=== PATIENT | female | born 1950 | race Caucasian/White ===

== ENCOUNTER → 2017-02-10 | Outpatient (CLI) | payer MEDICARE, BC ==
--- NOTE | 2017-02-11 08:20 | XR ---
EXAMINATION TYPE: XR ribs LT w pa chest xray DATE OF EXAM: 02/10/2017 11:44 AM COMPARISON: NONE HISTORY: Pain TECHNIQUE: PA chest x-ray and 4 views of the ribs are obtained. FINDINGS: Calcification along the right paratracheal region noted. Question of a vascular stent overl paulette the upper aortic region. Heart is prominent. No pneumothorax or interstitial edema. Deformity of the left 11th rib is appears chronic deformity also of the posterior lateral left eighth rib. IMPRESSION: 1. Deformity involving the posterior lateral left eighth rib appears to be subacute. No sizable pneum othorax. Correlate for minimally displaced rib fracture.
== END | disposition home or self-care (01) ==
LOC: RADXRYALE 11:26
PROVIDERS: ATTEND Physician Assistant Medical
DX: S49.91XA Unspecified injury of right shoulder and upper arm, initial encounter (principal); M95.4 Acquired deformity of chest and rib; R07.81 Pleurodynia

== ENCOUNTER 2017-09-29 08:45 | Day surgery (SDC) | payer MEDICARE ==
[2017-09-17 13:40] VITALS: BMI 35.5
[~2017-09-29 08:45] MED LIST: ALPRAZolam 0.25 MG TAB PO PRN; ALPRAZolam 0.5 MG TAB PO PRN; ASPIRIN 325 MG TAB PO STA; ATORVASTATIN 80 MG TAB PO STA; NITROGLYCERIN SL TABS 0.4 MG TAB SUBLINGUAL PRN; SODIUM CHLORIDE 0.9% 1,000 ML in EMPTY BAG 1 BAG IV ONE
[2017-09-29] MEDS ORDERED: SODIUM CHLORIDE 0.9% 1,000 ML IV SCH ×2 (09:00→13:30)
[2017-09-29 09:52] VITALS: TEMP 98.1
[2017-09-29 09:56] LABS: Prothrombin Time 9.8 sec (9.0-12.0)
[2017-09-29] MEDS ORDERED: MIDAZOLAM 2 MG/2 ML VIAL IV ONE (12:30)
[2017-09-29] MEDS ORDERED: fentaNYL (PF) 50 MCG/ML 2 ML AMP IV ONE (12:31)
[2017-09-29] MEDS ORDERED: LIDOCAINE 2% INJ 20 MG/ML SQ ONE ×2 (12:34)
[2017-09-29] MEDS ORDERED: HYDROcodone/APAP 5-325MG 1 EACH TAB PO PRN (13:26)
[2017-09-29] MEDS ORDERED: RX INFO: IV CONTRAST WAS GIVEN 1 EACH MISC MISCELLANE PRN (13:26)
[2017-09-29] MEDS ORDERED: IODIXANOL 320 MG/ML 100 ML INTRAARTER ONE (13:41)
--- NOTE | 2017-09-29 13:43 | CC ---
CARDIAC CATHETERIZATION REPORT Mrs. Sadler is a 67-year-old female who was has been found to have severe mitral regurgitation. Patient was advised cardiac catheterization to rule out any significant coronary artery disease. PROCEDURE: The right groin was prepped and draped in the usual manner and the skin was infiltrated with 2% Xylocaine. The right femoral artery was entered using Seldinger technique and a #6-Portuguese sheath was placed in. Selective coronary angiography was then performed in multiple projections. Left ventricular pressures were obtained. Left ventriculography was not performed because of significant ventricular irritability. HEMODYNAMICS: Left ventricular end-diastolic pressure is 20 to 22 mmHg prior to angiography. No gradient is noted across the aortic valve. SELECTIVE CORONARY ANGIOGRAPHY: Left main coronary artery is short. LAD is a good caliber blood vessel and gives rise to good size diagonal branch. LAD and its branches are normal. Circumflex coronary artery is a good caliber blood vessel and proximally has 70% stenosis. The right coronary artery has mild irregularity noted. FINAL IMPRESSION: This study reveals 70% stenosis in proximal to mid circumflex coronary artery. Left anterior descending artery is normal. Right coronary artery has minimal irregularity. Left ventricular end-diastolic pressure is mildly elevated. There is no evidence of any gradient across the aortic valve. RECOMMENDATIONS: Patient will need mitral valve replacement and vein graft to the obtuse marginal branch. This patient is anemic for which patient needs further workup prior to surgery. MMODL / IJN: [id number] /
[2017-09-29] MEDS ORDERED: FLECAINIDE 50 MG TAB PO STA (14:49)
[2017-09-29] MEDS ORDERED: METOPROLOL TARTRATE 12.5 MG TAB PO STA (14:50)
--- NOTE | 2017-09-29 18:13 | AN ---
ANGIOGRAPHY REPORT DATE OF SERVICE: September 29, 2017. PERFORMING PHYSICIAN: Tremayne Carreno MD, core shaper top. PROCEDURE PERFORMED: Selective left subclavian angiogram. INDICATION: This is a pleasant 67-year-old female patient who sees Dr. Crawley as an outpatient who was admitted to the hospital earlier today and underwent a heart catheterization by Dr. Rascon to rule out any severe underlying CAD before mitral valve surgery and she was experiencing left arm discomfort. In view of the history of left subclavian stenting, Dr. Rascon requested me to perform left subclavian angiogram on her. APPROACH: Right common femoral artery. COMPLICATION: None. LEVEL OF SEDATION: Moderate with sedation length of about 10 minutes. PROCEDURE DESCRIPTION: After diagnostic heart catheterization was performed by Dr. Rascon and I did engage the left subclavian using a Ludin Right catheter. I did selective left subclavian angiogram using manual injection. The procedure was completed without any complication. SELECTIVE PERIPHERAL ANGIOGRAM: The left subclavian is stented in the proximal portion with critical in-stent restenoses. CONCLUSION: Critical in-stent restenosis involving the left subclavian. POSTPROCEDURE MANAGEMENT: Follow up with the patient as an outpatient and discuss with her the option of revascularization. Clearly the patient has been experiencing left arm discomfort. MMODL / IJN: [id number] /
[2017-09-29 19:00] VITALS: BP 116/72; PULSE 82; RESP 16
== END 2017-09-29 19:00 | disposition home or self-care (01) ==
LOC: CATHCVL 08:45
PROVIDERS: ATTEND Internal Medicine Cardiovascular Disease
DX: I25.10 Atherosclerotic heart disease of native coronary artery without angina pectoris (principal); T82.856A Stenosis of peripheral vascular stent, initial encounter; D64.9 Anemia, unspecified; I34.0 Nonrheumatic mitral (valve) insufficiency; I48.1 Persistent atrial fibrillation; I10 Essential (primary) hypertension; I77.1 Stricture of artery; I70.0 Atherosclerosis of aorta; I73.9 Peripheral vascular disease, unspecified; E78.5 Hyperlipidemia, unspecified; I49.3 Ventricular premature depolarization; I47.1 Supraventricular tachycardia; J44.9 Chronic obstructive pulmonary disease, unspecified; I27.20 Pulmonary hypertension, unspecified; Z82.49 Family history of ischemic heart disease and other diseases of the circulatory system; Z79.01 Long term (current) use of anticoagulants; Z79.02 Long term (current) use of antithrombotics/antiplatelets; Z79.82 Long term (current) use of aspirin; Z79.899 Other long term (current) drug therapy; Z88.5 Allergy status to narcotic agent; Z87.891 Personal history of nicotine dependence
CPT/HCPCS: 36215; 93458; 75710; 85610; C1760; C1894; C1769; J2001; J2250; Q9967; J3010

== ENCOUNTER 2017-10-12 11:18 | Inpatient (IN) | payer MEDICARE ==
--- NOTE | 2017-10-12 11:51 | ED ---
General Adult HPI - General Chief complaint: Chest Pain Stated complaint: Chest Pain Time Seen by Provider: 10/12/17 11:21 Source: patient, EMS, RN notes reviewed, old records reviewed Mode of arrival: EMS Limitations: no limitations - History of Present Illness Initial comments: 67-year-old female presents for evaluation of fatigue and worsening dyspnea. Patient has past medical history of mitral valve regurgitation and coronary artery disease. She is currently working with cardiology for scheduling of open heart surgery. She has not yet met with cardiothoracic surgery. She also has history of left subclavian stenosis status post stenting. She is currently on Coumadin. Patient states that over the past 5 days she has had worsening fatigue, exertional dyspnea and chest pain. Pain is primarily positional. She does have pain in her left arm with prolonged positioning. Patient currently has no chest pain or arm pain at the time my evaluation. Her breathing is comfortable while at rest. Additional past medical history including atrial fibrillation, mitral valve regurgitation, coronary artery disease. - Related Data Home Medications Medication Instructions Recorded Confirmed Escitalopram [Lexapro] 10 mg PO HS 02/01/14 10/12/17 Aspirin EC [Ecotrin Low Dose] 162 mg PO HS 02/19/16 10/12/17 Enalapril/Hydrochlorothiazide 1 tab PO HS 08/30/17 10/12/17 [Enalapril-Hctz 10-25 mg Tablet] Metoprolol Tartrate [Lopressor] 12.5 mg PO BID 09/17/17 10/12/17 Warfarin [Coumadin] 5 mg PO DAILY@1800 09/17/17 10/12/17 Amiodarone [Cordarone] 200 mg PO DAILY 10/12/17 10/12/17 Naproxen 500 mg PO DAILY PRN 10/12/17 10/12/17 Previous Rx's Medication Instructions Recorded Atorvastatin [Lipitor] 20 mg PO DAILY #30 tab 09/04/17 Furosemide [Lasix] 20 mg PO DAILY #30 tab 09/04/17 Allergies Allergy/AdvReac Type Severity Reaction Status Date / Time codeine AdvReac Hallucinati Verified 10/12/17 12:08 ons Review of Systems ROS Statement: Those systems with pertinent positive or pertinent negative responses have been documented in the HPI. ROS Other: All systems not noted in ROS Statement are negative. Past Medical History Past Medical History: Atrial Fibrillation, Hyperlipidemia, Hypertension Additional Past Medical History / Comment(s): HX: Was told "leaky valve", pt states has been experiencing "gallbladder pain" has been followed by dr small for sx and elevated liver enzymes, shortness of breath with activity History of Any Multi-Drug Resistant Organisms: None Reported Past Surgical History: Heart Catheterization With Stent, Tonsillectomy Additional Past Surgical History / Comment(s): 05/03/15 L subclavian stent. Other SX:D&C,NILDA Past Anesthesia/Blood Transfusion Reactions: No Reported Reaction Additional Past Anesthesia/Blood Transfusion Reaction / Comment(s): patient states she has never received blood Date of Last Stent Placement:: 05/03/15 Past Psychological History: No Psychological Hx Reported Smoking Status: Former smoker Past Alcohol Use History: None Reported Past Drug Use History: None Reported - Past Family History Mother Family Medical History: Hypertension Additional Family Medical History / Comment(s): LEAKY HEART VALVES,HEART PROBLEMS, WITH BOWEL OBS Father Family Medical History: Myocardial Infarction ([place]) Additional Family Medical History / Comment(s): HEART PROBLEMS, AT AGE 68 WITH [place] General Exam Limitations: no limitations General appearance: alert, in no apparent distress Head exam: Present: atraumatic, normocephalic Eye exam: Present: normal appearance, PERRL ENT exam: Present: normal exam Neck exam: Present: normal inspection. Absent: tenderness, meningismus Respiratory exam: Present: normal lung sounds bilaterally. Absent: respiratory distress Cardiovascular Exam: Present: regular rate, normal rhythm, systolic murmur GI/Abdominal exam: Present: soft. Absent: distended, tenderness Extremities exam: Present: normal inspection, normal capillary refill, pedal edema, other (No palpable left radial pulse, and is warm and pink, pulse oximetry of 100% with poor waveform. ) Back exam: Present: normal inspection, full ROM. Absent: tenderness Neurological exam: Present: alert, CN II-XII intact. Absent: oriented X3, motor sensory deficit Psychiatric exam: Present: normal affect, normal mood Skin exam: Present: warm, dry, intact, diaphoretic. Absent: cyanosis Course Vital Signs 10/12/17 10/12/17 10/12/17 11:19 12:26 13:45 Temperature 98.8 F 97.8 F 97.6 F Pulse Rate 86 74 78 Respiratory 18 18 18 Rate Blood Pressure 132/60 111/55 111/53 O2 Sat by Pulse 100 100 100 Oximetry EKG Findings - EKG Comments: EKG Findings:: EKG shows sinus rhythm with PVC ventricular rate 77, VA 1:30, castration 78, QTC 441, T-wave inversion in lead V3 signs of ST segment elevation. Medical Decision Making - Medical Decision Making 67-year-old female presenting with generalized weakness and fatigue. Patient is on Coumadin. INR 5.5, hemoglobin 5.9 from recent baseline of 9.1. Patient' s stool is dark and tarry and heme positive. Patient is given vitamin K, 2 units of packed RBCs, case is discussed with Dr. Rutledge, who will accept the patient to the ICU, case also discussed with Dr. Plummer, she recommends 2 units FFP at this time. Case discussed with Dr. Middleton and he will accept admission. Diagnosis: Melena, suspect upper GI bleed, supratherapeutic INR, acute blood loss anemia - Lab Data Result diagrams: 10/12/17 11:27 10/12/17 11:27 Lab Results 10/12/17 10/12/17 10/12/17 Range/Units 11:27 11:27 11:27 WBC 9.1 (3.8-10.6) k/uL RBC 2.63 L (3.80-5.40) m/uL Hgb 5.9 L* D (11.4-16.0) gm/dL Hct 20.6 L (34.0-46.0) % MCV 78.1 L D (80.0-100.0) fL MCH 22.5 L (25.0-35.0) pg MCHC 28.8 L (31.0-37.0) g/dL RDW 19.1 H (11.5-15.5) % Plt Count 372 (150-450) k/uL Neutrophils % 76 % Lymphocytes % 13 % Monocytes % 5 % Eosinophils % 3 % Basophils % 1 % Neutrophils # 6.9 (1.3-7.7) k/uL Lymphocytes # 1.2 (1.0-4.8) k/uL Monocytes # 0.4 (0-1.0) k/uL Eosinophils # 0.3 (0-0.7) k/uL Basophils # 0.0 (0-0.2) k/uL Hypochromasia Marked Poikilocytosis Slight Anisocytosis Slight Microcytosis Slight PT (9.0-12.0) sec INR (<1.2) APTT (22.0-30.0) sec Sodium 140 (137-145) mmol/L Potassium 4.5 (3.5-5.1) mmol/L Chloride 108 H (98-107) mmol/L Carbon Dioxide 26 (22-30) mmol/L Anion Gap 6 mmol/L BUN 24 H (7-17) mg/dL Creatinine 1.01 (0.52-1.04) mg/dL Est GFR (MDRD) Af Amer >60 (>60 ml/min/1.73 sqM) Est GFR (MDRD) Non-Af 55 (>60 ml/min/1.73 sqM) Glucose 95 (74-99) mg/dL Calcium 8.6 (8.4-10.2) mg/dL Magnesium 1.9 (1.6-2.3) mg/dL Total Bilirubin 0.2 (0.2-1.3) mg/dL AST 62 H (14-36) U/L ALT 54 H (9-52) U/L Alkaline Phosphatase 71 (38-126) U/L Total Creatine Kinase 293 H (30-135) U/L CK-MB (CK-2) 0.4 (0.0-2.4) ng/mL CK-MB (CK-2) Rel Index 0.1 Troponin I <0.012 (0.000-0.034) ng/mL NT-Pro-B Natriuret Pep pg/mL Total Protein 6.6 (6.3-8.2) g/dL Albumin 3.2 L (3.5-5.0) g/dL Stool Occult Blood (Negative) 10/12/17 10/12/17 10/12/17 Range/Units 11:27 11:27 13:40 WBC (3.8-10.6) k/uL RBC (3.80-5.40) m/uL Hgb (11.4-16.0) gm/dL Hct (34.0-46.0) % MCV (80.0-100.0) fL MCH (25.0-35.0) pg MCHC (31.0-37.0) g/dL RDW (11.5-15.5) % Plt Count (150-450) k/uL Neutrophils % % Lymphocytes % % Monocytes % % Eosinophils % % Basophils % % Neutrophils # (1.3-7.7) k/uL Lymphocytes # (1.0-4.8) k/uL Monocytes # (0-1.0) k/uL Eosinophils # (0-0.7) k/uL Basophils # (0-0.2) k/uL Hypochromasia Poikilocytosis Anisocytosis Microcytosis PT 49.8 H (9.0-12.0) sec INR 5.5 H* (<1.2) APTT 30.2 H (22.0-30.0) sec Sodium (137-145) mmol/L Potassium (3.5-5.1) mmol/L Chloride (98-107) mmol/L Carbon Dioxide (22-30) mmol/L Anion Gap mmol/L BUN (7-17) mg/dL Creatinine (0.52-1.04) mg/dL Est GFR (MDRD) Af Amer (>60 ml/min/1.73 sqM) Est GFR (MDRD) Non-Af (>60 ml/min/1.73 sqM) Glucose (74-99) mg/dL Calcium (8.4-10.2) mg/dL Magnesium (1.6-2.3) mg/dL Total Bilirubin (0.2-1.3) mg/dL AST (14-36) U/L ALT (9-52) U/L Alkaline Phosphatase (38-126) U/L Total Creatine Kinase (30-135) U/L CK-MB (CK-2) (0.0-2.4) ng/mL CK-MB (CK-2) Rel Index Troponin I (0.000-0.034) ng/mL NT-Pro-B Natriuret Pep 1160 pg/mL Total Protein (6.3-8.2) g/dL Albumin (3.5-5.0) g/dL Stool Occult Blood Positive H (Negative) Critical Care Time Critical Care Time: Yes Total Critical Care Time: 35 Disposition Clinical Impression: GI bleed Disposition: ADMITTED IP TO THIS [facility] Condition: Serious Referrals: Elton Madden DO [Primary Care Provider] - 1-2 days Decision to Admit Reason: Admit from EC Decision Date: 10/12/17 Decision Time: 14:09
[2017-10-12 12:12] LABS: ALT 54 U/L (9-52); AST 62 U/L (14-36); Albumin 3.2 g/dL (3.5-5.0); Alkaline Phosphatase 71 U/L (38-126); Anion Gap 6 mmol/L; Blood Urea Nitrogen 24 mg/dL (7-17); Calcium 8.6 mg/dL (8.4-10.2); Carbon Dioxide 26 mmol/L (22-30); Chloride 108 mmol/L (98-107); Glucose 95 mg/dL (74-99); Magnesium 1.9 mg/dL (1.6-2.3); Potassium 4.5 mmol/L (3.5-5.1); Sodium 140 mmol/L (137-145); Total Bilirubin 0.2 mg/dL (0.2-1.3); Total Protein 6.6 g/dL (6.3-8.2)
[2017-10-12 12:16] LABS: Anisocytosis Slight; Basophils % (A) 1 %; Eosinophils # (A) 0.3 k/uL (0-0.7); Eosinophils % (A) 3 %; HCT 20.6 % (34.0-46.0); Hypochromasia Marked; Lymphocytes # (A) 1.2 k/uL (1.0-4.8); Lymphocytes % (A) 13 %; MCH 22.5 pg (25.0-35.0); MCHC 28.8 g/dL (31.0-37.0); Mean Platelet Volume 7.8; Microcytosis Slight; Monocytes # (A) 0.4 k/uL (0-1.0); Monocytes % (A) 5 %; Neutrophils # (A) 6.9 k/uL (1.3-7.7); Neutrophils % (A) 76 %; Platelet Count 372 k/uL (150-450); Poikilocytosis Slight; RBC 2.63 m/uL (3.80-5.40); RDW 19.1 % (11.5-15.5); WBC 9.1 k/uL (3.8-10.6)
[2017-10-12 12:25] LABS: Creatine Kinase 293 U/L (30-135); HGB 5.9 gm/dL (11.4-16.0); MCV 78.1 fL (80.0-100.0)
--- NOTE | 2017-10-12 12:27 | XR ---
EXAMINATION TYPE: XR chest 2V DATE OF EXAM: 10/12/2017 COMPARISON: 08/30/2017 TECHNIQUE: PA and lateral views submitted. HISTORY: Shortness of breath FINDINGS: The lungs are clear and there is no pneumothorax, pleural effusion, or focal pneumonia. There is a n odule in the left upper lobe laterally. Cardiomegaly and atherosclerotic change aorta. No overt failu re. Degenerative change of the spine. Vascular stent noted. Arthropathy of the hips. IMPRESSION: 1. No acute process. Left upper lobe pulmonary nodule. Recommend a CT of the chest to assess for naun gnancy
[2017-10-12 12:38] LABS: Creatine Kinase MB 0.4 ng/mL (0.0-2.4); Troponin I <0.012 ng/mL (0.000-0.034)
[2017-10-12 12:46] LABS: Partial Thromboplastin Time 30.2 sec (22.0-30.0); Prothrombin Time 49.8 sec (9.0-12.0)
[2017-10-12 12:54] LABS: INR 5.5 (<1.2)
[2017-10-12] MEDS ORDERED: PHYTONADIONE ORAL 5 MG/5 ML ORAL.SYRG PO STA (13:12)
[2017-10-12] MEDS ORDERED: PANTOPRAZOLE 40 MG/10 ML VIAL IVP ONE (13:14)
[2017-10-12] MEDS ORDERED: NALOXONE 0.4 MG/ML 1 ML VIAL IV PRN (13:59)
[2017-10-12 16:42] LABS: Glucose,Whole Blood 91 mg/dL (75-99)
--- NOTE | 2017-10-12 16:47 | P.CNPUL ---
History of Present Illness Consult date: 10/12/17 Requesting physician: Francisco Middleton Reason for consult: other (Critical care management) Chief complaint: Shortness of breath, weakness, chest discomfort, black tarry stool History of present illness: This is a very pleasant 67-year-old female patient who follows with Dr. Madden as her primary care physician. She has a history of atrial fibrillation, hyperlipidemia, hypertension, cholelithiasis, left subclavian stenosis with previous stent placement and subsequent reocclusion, cardiac catheterization performed 09/29/2017 revealed coronary artery disease with 70% stenosis in the proximal to mid circumflex and severe mitral regurgitation pending cardiothoracic surgical consultation and surgery. She has been on warfarin and Ecotrin 162 mg daily. She does have a history of chronic tobacco dependence however quit 2 years ago. She's never been told she has COPD/ emphysema or asthma. She is not on any inhalers in the outpatient setting. She presented here to the emergency room this morning with complaints of fatigue and worsening shortness of breath with minimal exertion. She's also had ongoing issues with left-sided chest discomfort radiating down her left arm. Initial troponin is negative. ProBNP 1160. She was found to be supratherapeutic on INR of 5.5 and a hemoglobin of 5.9 with stool occult blood positive. She had noticed some black tarry stool at home as well. Last colonoscopy 4 years ago. She is seen in the emergency room in consultation. She is awake and alert in no acute distress. She has remained hemodynamically stable. She is maintaining good O2 saturations up to 100% on 2 L/m per nasal cannula. Her chest x-ray reveals no acute pulmonary process. There is a noted left upper lobe pulmonary nodule. She's been afebrile. No tachypnea. No tachycardia. Currently in sinus rhythm. Rate well controlled. There is nonspecific ST and T wave abnormalities. Review of Systems 14 point review of system was conducted. All negative other than as mentioned HPI. Past Medical History Past Medical History: Atrial Fibrillation, Hyperlipidemia, Hypertension Additional Past Medical History / Comment(s): HX: Was told "leaky valve", pt states has been experiencing "gallbladder pain" has been followed by dr small for sx and elevated liver enzymes, shortness of breath with activity History of Any Multi-Drug Resistant Organisms: None Reported Past Surgical History: Heart Catheterization With Stent, Tonsillectomy Additional Past Surgical History / Comment(s): 05/03/15 L subclavian stent. Other SX:D&C,NILDA Past Anesthesia/Blood Transfusion Reactions: No Reported Reaction Additional Past Anesthesia/Blood Transfusion Reaction / Comment(s): patient states she has never received blood Date of Last Stent Placement:: 05/03/15 Past Psychological History: No Psychological Hx Reported Smoking Status: Former smoker Past Alcohol Use History: None Reported Past Drug Use History: None Reported - Past Family History Mother Family Medical History: Hypertension Additional Family Medical History / Comment(s): LEAKY HEART VALVES,HEART PROBLEMS, WITH BOWEL OBS Father Family Medical History: Myocardial Infarction ([place]) Additional Family Medical History / Comment(s): HEART PROBLEMS, AT AGE 68 WITH [place] Medications and Allergies Home Medications Medication Instructions Recorded Confirmed Type Escitalopram [Lexapro] 10 mg PO HS 02/01/14 10/12/17 History Aspirin EC [Ecotrin Low Dose] 162 mg PO HS 02/19/16 10/12/17 History Enalapril/Hydrochlorothiazide 1 tab PO HS 08/30/17 10/12/17 History [Enalapril-Hctz 10-25 mg Tablet] Atorvastatin [Lipitor] 20 mg PO DAILY #30 tab 09/04/17 10/12/17 Rx Furosemide [Lasix] 20 mg PO DAILY #30 tab 09/04/17 10/12/17 Rx Metoprolol Tartrate [Lopressor] 12.5 mg PO BID 09/17/17 10/12/17 History Warfarin [Coumadin] 5 mg PO DAILY@1800 09/17/17 10/12/17 History Amiodarone [Cordarone] 200 mg PO DAILY 10/12/17 10/12/17 History Naproxen 500 mg PO DAILY PRN 10/12/17 10/12/17 History Allergies Allergy/AdvReac Type Severity Reaction Status Date / Time codeine AdvReac Hallucinati Verified 10/12/17 12:08 ons Physical Exam Vitals: Vital Signs Temp Pulse Resp BP Pulse Ox 10/12/17 14:57 97.9 F 74 20 108/59 98 10/12/17 13:45 97.6 F 78 18 111/53 100 10/12/17 12:26 97.8 F 74 18 111/55 100 10/12/17 11:19 98.8 F 86 18 132/60 100 Intake and Output 10/12/17 10/12/17 10/12/17 06:59 14:59 22:59 Other: Weight 92.533 kg Patient Weight 10/13/17 06:59 Weight 92.533 kg GENERAL EXAM: Pale. Alert, oriented 3, comfortable in no apparent distress. HEAD: Normocephalic. EYES: Normal reaction of pupils, equal size. NOSE: Clear with pink turbinates. THROAT: No erythema or exudates. NECK: No masses, no JVD. CHEST: No chest wall deformity. LUNGS: Equal air entry with no crackles, wheeze, rhonchi or dullness. CVS: S1 and S2 normal with an audible murmur, regular rhythm. ABDOMEN: No hepatosplenomegaly, normal bowel sounds, no guarding or rigidity. SPINE: No scoliosis or deformity SKIN: No rashes CENTRAL NERVOUS SYSTEM: No focal deficits, tone is normal in all 4 extremities. EXTREMITIES: There is no peripheral edema. No clubbing, no cyanosis. Peripheral pulses are intact. Results - Laboratory Findings CBC and BMP: 10/12/17 11:27 10/12/17 11:27 PT/INR, D-dimer PT 49.8 sec (9.0-12.0) H 10/12/17 11:27 INR 5.5 (<1.2) H* 10/12/17 11:27 Abnormal lab findings: Abnormal Labs 10/12/17 10/12/17 10/12/17 11:27 11:27 11:27 RBC 2.63 L Hgb 5.9 L* D Hct 20.6 L MCV 78.1 L D MCH 22.5 L MCHC 28.8 L RDW 19.1 H PT INR APTT Chloride 108 H BUN 24 H AST 62 H ALT 54 H Total Creatine Kinase 293 H Albumin 3.2 L Stool Occult Blood Crossmatch 10/12/17 10/12/17 10/12/17 11:27 11:27 13:40 RBC Hgb Hct MCV MCH MCHC RDW PT 49.8 H INR 5.5 H* APTT 30.2 H Chloride BUN AST ALT Total Creatine Kinase Albumin Stool Occult Blood Positive H Crossmatch See Detail - Diagnostic Findings Chest x-ray: image reviewed Assessment and Plan Assessment: Impression: #1 Acute gastrointestinal bleeding, suspect lower of unclear etiology. Last colonoscopy 4 years ago. Suspect secondary to supra therapeutic INR of 5.5. Current hemoglobin 5.9. Pending 2 units packed red blood cell transfusions and fresh frozen plasma. #2 Severe mitral regurgitation. Cardiothoracic consultation pending. #3 Coronary artery disease with a 70% stenosis in the proximal to mid circumflex coronary artery. Cardiothoracic consultation pending. #4 Left subclavian stent in the proximal portion with a critical in-stent restenosis. Plans were for follow-up in the outpatient setting based on the amount of dye utilized during that admission. #5 Cholecystitis, possibly chronic in nature. #6 Hypertension. #7 Hyperlipidemia. #8 Chronic tobacco dependence of greater than 40 years however quit 2 years ago. #8 History of elevated liver enzymes, currently AST 62, ALT 54. Plan: The patient was seen and evaluated by Dr. Rutledge. Her chest x-ray was reviewed. There is some question of pulmonary nodule in the left upper lobe difficult to appreciate on x-ray and not commented on x-ray of August 2017. May require a computed tomography scan of the chest at some point. Currently she'll receive her 2 units of packed red blood cells and fresh frozen plasma. Hold warfarin. Continue IV Protonix. Continue normal saline at 50 MLS per hour. She remains hemodynamically stable. Not requiring pressors at this point. Cardiothoracic consultation. Gastroenterology consultation. We'll observe her 24 hours here in the intensive care unit. Continue to monitor her hemoglobins. We will continue to follow and make further recommendations based on her clinical status. I, the cosigning physician, have performed a history and physical examination on the patient. Lung sounds are clear. Maintaining good O2 saturations in the 90s on 2 L/m per nasal cannula. I have discussed the assessment and plan of care with my nurse practitioner, Tiffayn Iniguez. I attest to the above consultation as dictated by her. Time with Patient: Greater than 30
--- NOTE | 2017-10-12 16:51 | P.HPIM ---
History of Present Illness 67-year-old female presents for evaluation of fatigue and worsening dyspnea. Patient has past medical history of mitral valve regurgitation and coronary artery disease. She is currently working with cardiology for scheduling of open heart surgery. She has not yet met with cardiothoracic surgery. She also has history of left subclavian stenosis status post stenting. Patient still has significant stenosis after stenting of stenting of subclavian artery on the left side and. She is currently on Coumadin for atrial fibrillation supratherapeutic Patient states that over the past 5 days she has had worsening fatigue, exertional dyspnea and chest pain, unable to perform her regular activities with significant lightheadedness can't even go to the bathroom because of lightheadedness and generalized fatigue and found to be severely anemic with hemoglobin of 5.6. Patient was complaining upon of dark stools and patient was recently started back on Coumadin and her INR is supratherapeutic with the INR of around 5 patient had 1 dark stool every day for last 3-4 days denied any abdominal pain Her breathing is comfortable while at rest. Additional past medical history including atrial fibrillation, mitral valve regurgitation, coronary artery disease. Review of Systems REVIEW OF SYSTEMS: CONSTITUTIONAL: No fever, no malaise, fatigue as mentioned above lightheadedness as mentioned above HEENT: No recent visual problems or hearing problems. Denied any sore throat. CARDIOVASCULAR: No orthopnea, PND, no palpitations, no syncope. PULMONARY: no cough, no hemoptysis. GASTROINTESTINAL: No diarrhea, no nausea, no vomiting, no abdominal pain. Normoactive bowel sounds. NEUROLOGICAL: No headaches, no weakness, no numbness. HEMATOLOGICAL: Denies any bleeding or petechiae. GENITOURINARY: Denies any burning micturition, frequency, or urgency. MUSCULOSKELETAL/RHEUMATOLOGICAL: Denies any joint pain, swelling, or any muscle pain. ENDOCRINE: Denies any polyuria or polydipsia. The rest of the 14-point review of systems is negative. Past Medical History Past Medical History: Atrial Fibrillation, Hyperlipidemia, Hypertension Additional Past Medical History / Comment(s): HX: Was told "leaky valve", pt states has been experiencing "gallbladder pain" has been followed by dr small for sx and elevated liver enzymes, shortness of breath with activity History of Any Multi-Drug Resistant Organisms: None Reported Past Surgical History: Heart Catheterization With Stent, Tonsillectomy Additional Past Surgical History / Comment(s): 05/03/15 L subclavian stent. Other SX:D&C,NILDA Past Anesthesia/Blood Transfusion Reactions: No Reported Reaction Additional Past Anesthesia/Blood Transfusion Reaction / Comment(s): patient states she has never received blood Date of Last Stent Placement:: 05/03/15 Past Psychological History: No Psychological Hx Reported Smoking Status: Former smoker Past Alcohol Use History: None Reported Past Drug Use History: None Reported - Past Family History Mother Family Medical History: Hypertension Additional Family Medical History / Comment(s): LEAKY HEART VALVES,HEART PROBLEMS, WITH BOWEL OBS Father Family Medical History: Myocardial Infarction ([place]) Additional Family Medical History / Comment(s): HEART PROBLEMS, AT AGE 68 WITH [place] Medications and Allergies Home Medications Medication Instructions Recorded Confirmed Type Escitalopram [Lexapro] 10 mg PO HS 02/01/14 10/12/17 History Aspirin EC [Ecotrin Low Dose] 162 mg PO HS 02/19/16 10/12/17 History Enalapril/Hydrochlorothiazide 1 tab PO HS 08/30/17 10/12/17 History [Enalapril-Hctz 10-25 mg Tablet] Atorvastatin [Lipitor] 20 mg PO DAILY #30 tab 09/04/17 10/12/17 Rx Furosemide [Lasix] 20 mg PO DAILY #30 tab 09/04/17 10/12/17 Rx Metoprolol Tartrate [Lopressor] 12.5 mg PO BID 09/17/17 10/12/17 History Warfarin [Coumadin] 5 mg PO DAILY@1800 09/17/17 10/12/17 History Amiodarone [Cordarone] 200 mg PO DAILY 10/12/17 10/12/17 History Naproxen 500 mg PO DAILY PRN 10/12/17 10/12/17 History Allergies Allergy/AdvReac Type Severity Reaction Status Date / Time codeine AdvReac Hallucinati Verified 10/12/17 12:08 ons Physical Exam Vitals: Vital Signs Temp Pulse Resp BP Pulse Ox 10/12/17 16:23 97.8 F 79 18 124/58 100 10/12/17 16:13 98.3 F 82 18 130/58 100 10/12/17 14:57 97.9 F 74 20 108/59 98 10/12/17 13:45 97.6 F 78 18 111/53 100 10/12/17 12:26 97.8 F 74 18 111/55 100 10/12/17 11:19 98.8 F 86 18 132/60 100 Intake and Output 10/12/17 10/12/17 10/12/17 06:59 14:59 22:59 Intake Total 0 Balance 0 Intake: Blood Product 0 Rc As-1 Unit 0 [id number] Other: Weight 92.533 kg Patient Weight 10/13/17 06:59 Weight 92.533 kg PHYSICAL EXAMINATION: GENERAL: The patient is alert and oriented x3, not in any acute distress. Well developed, well nourished. HEENT: Pupils are round and equally reacting to light. EOMI. No scleral icterus. She does have conjunctival pallor. Normocephalic, atraumatic. No pharyngeal erythema. No thyromegaly. CARDIOVASCULAR: S1 and S2 present. No murmurs, rubs, or gallops. Systolic murmur in the mitral area possibly in the aortic area as well PULMONARY: Chest is clear to auscultation, no wheezing or crackles. ABDOMEN: Soft, nontender, nondistended, normoactive bowel sounds. No palpable organomegaly. MUSCULOSKELETAL: No joint swelling or deformity. EXTREMITIES: No cyanosis, clubbing, or pedal edema. NEUROLOGICAL: Gross neurological examination did not reveal any focal deficits. SKIN: No rashes. Results CBC & Chem 7: 10/12/17 11:27 10/12/17 11:27 Labs: Abnormal Lab Results - Last 24 Hours (Table) 10/12/17 10/12/17 10/12/17 Range/Units 11:27 11:27 11:27 RBC 2.63 L (3.80-5.40) m/uL Hgb 5.9 L* D (11.4-16.0) gm/dL Hct 20.6 L (34.0-46.0) % MCV 78.1 L D (80.0-100.0) fL MCH 22.5 L (25.0-35.0) pg MCHC 28.8 L (31.0-37.0) g/dL RDW 19.1 H (11.5-15.5) % PT (9.0-12.0) sec INR (<1.2) APTT (22.0-30.0) sec Chloride 108 H (98-107) mmol/L BUN 24 H (7-17) mg/dL AST 62 H (14-36) U/L ALT 54 H (9-52) U/L Total Creatine Kinase 293 H (30-135) U/L Albumin 3.2 L (3.5-5.0) g/dL Stool Occult Blood (Negative) Crossmatch 10/12/17 10/12/17 10/12/17 Range/Units 11:27 11:27 13:40 RBC (3.80-5.40) m/uL Hgb (11.4-16.0) gm/dL Hct (34.0-46.0) % MCV (80.0-100.0) fL MCH (25.0-35.0) pg MCHC (31.0-37.0) g/dL RDW (11.5-15.5) % PT 49.8 H (9.0-12.0) sec INR 5.5 H* (<1.2) APTT 30.2 H (22.0-30.0) sec Chloride (98-107) mmol/L BUN (7-17) mg/dL AST (14-36) U/L ALT (9-52) U/L Total Creatine Kinase (30-135) U/L Albumin (3.5-5.0) g/dL Stool Occult Blood Positive H (Negative) Crossmatch See Detail Assessment and Plan Plan: -Severe symptomatic anemia: With possibility of acute upper GI bleed, transfused 2 units of breath and gastric surgery was consulted and patient is on Protonix. -Coumadin coagulopathy: Holding Coumadin patient was given 2.5 mg of vitamin K. -Coronary artery disease aspirin is being held because of GI bleed possibility -Atrial fibrillation presently rate controlled: Patient will be started back on her A. fib medications and rate control medications except for Coumadin. -Left subclavian stenosis. -Mitral regurgitation: Patient is not on any CHF exacerbation because of blood transfusion patient may end up getting overloaded will treat accordingly patient is presently resumed on her home dose of Lasix
[2017-10-12] MEDS: ESCITALOPRAM 10 MG TAB PO SCH (21:11)
[2017-10-12] MEDS: ATORVASTATIN 20 MG TAB PO SCH (21:12)
[2017-10-12] MEDS: SODIUM CHLORIDE 0.9% 1,000 ML IV SCH (21:14)
[2017-10-12] MEDS: METOPROLOL TARTRATE 12.5 MG TAB PO SCH (23:21)
[2017-10-13] MEDS ORDERED: PROPOFOL 10 MG/ML 20 ML VIAL IV ONE (01:10)
[2017-10-13] MEDS ORDERED: fentaNYL (PF) 50 MCG/ML 2 ML AMP ONE (01:10)
[2017-10-13] MEDS ORDERED: GLYCOPYRROLATE 0.2 MG/ML 2 ML VIAL ONE (01:10)
[2017-10-13 01:42] LABS: Anisocytosis Slight; HCT 25.2 % (34.0-46.0); HGB 7.5 gm/dL (11.4-16.0); Hypochromasia Marked; MCHC 29.8 g/dL (31.0-37.0); Mean Platelet Volume 6.6; Platelet Count 281 k/uL (150-450); Poikilocytosis Marked; RDW 16.7 % (11.5-15.5); WBC 7.9 k/uL (3.8-10.6)
[2017-10-13 01:43] LABS: MCV 84.1 fL (80.0-100.0)
[2017-10-13 04:43] LABS: Anisocytosis Slight; Basophils # (A) 0.1 k/uL (0-0.2); Basophils % (A) 1 %; Eosinophils # (A) 0.4 k/uL (0-0.7); Eosinophils % (A) 4 %; HCT 25.3 % (34.0-46.0); HGB 7.5 gm/dL (11.4-16.0); Hypochromasia Marked; Lymphocytes # (A) 1.2 k/uL (1.0-4.8); Lymphocytes % (A) 14 %; MCH 24.6 pg (25.0-35.0); MCHC 29.8 g/dL (31.0-37.0); MCV 82.6 fL (80.0-100.0); Mean Platelet Volume 7.4; Microcytosis Slight; Monocytes # (A) 0.5 k/uL (0-1.0); Monocytes % (A) 6 %; Neutrophils # (A) 5.8 k/uL (1.3-7.7); Neutrophils % (A) 72 %; Platelet Count 274 k/uL (150-450); Poikilocytosis Moderate; RBC 3.06 m/uL (3.80-5.40); WBC 8.2 k/uL (3.8-10.6)
[2017-10-13 05:00] LABS: Anion Gap 6 mmol/L; Blood Urea Nitrogen 25 mg/dL (7-17); Calcium 8.6 mg/dL (8.4-10.2); Carbon Dioxide 26 mmol/L (22-30); Chloride 109 mmol/L (98-107); Glucose 84 mg/dL (74-99); Phosphorus 3.1 mg/dL (2.5-4.5); Potassium 4.1 mmol/L (3.5-5.1); Sodium 141 mmol/L (137-145)
--- NOTE | 2017-10-13 07:50 | XR ---
EXAMINATION TYPE: XR chest 1V DATE OF EXAM: 10/13/2017 COMPARISON: Prior chest x-ray 10/12/2017 HISTORY: Cough and shortness of breath TECHNIQUE: Single frontal view of the chest is obtained. FINDINGS: The heart is enlarged. There are overlying cardiac leads. No evident airspace disease, pne umothorax, or pleural effusion. Pulmonary vascularity and laura are stable. Nodular density seen in th e left mid lung on prior exam may be obscured by overlying leads. Minimal patchy basilar density like ly reflects atelectasis. IMPRESSION: Cardiomegaly. Additional findings above.
[2017-10-13 08:10] LABS: Partial Thromboplastin Time 26.6 sec (22.0-30.0); Prothrombin Time 18.1 sec (9.0-12.0)
[2017-10-13] MEDS: ACETAMINOPHEN TAB 325 MG TAB PO PRN ×2 (08:11→21:54)
[2017-10-13] MEDS: METOPROLOL TARTRATE 12.5 MG TAB PO SCH ×2 (08:13→20:42)
[2017-10-13] MEDS: FUROSEMIDE 20 MG TAB PO SCH (08:13)
[2017-10-13] MEDS: PANTOPRAZOLE 40 MG/10 ML VIAL IV SCH (08:42)
[2017-10-13] MEDS ORDERED: ATORVASTATIN 20 MG TAB PO SCH (09:00)
[2017-10-13] MEDS ORDERED: AMIODARONE 200 MG TAB PO SCH ×2 (09:00→16:00)
--- NOTE | 2017-10-13 09:24 | P.CONS ---
History of Present Illness - Reason for Consult Consult date: 10/13/17 GI bleed melena Requesting physician: Francisco Middleton - History of Present Illness 67-year-old female with a history of atrial fibrillation with Coumadin monitoring, mitral valve disease, coronary artery disease, left subclavian stenosis with stent, obesity presents with worsening fatigue dyspnea with 3-4 week history of intermittent painless black colored bowel movements. Anticoagulation was held last month prior to heart catheterization that was performed September 29 which resolved her black colored bowel movements. After heart catheterization she restarted her Coumadin and within a few days started to pass small to moderate size bowel movements that were black-colored in nature. Denies hematemesis or hematochezia. No history of GI bleed. Last colonoscopy 5-6 years ago to her memory was normal. No history of EGD. Denies NSAIDs but takes 2 baby aspirin daily. Patient is awaiting cardiothoracic evaluation for possible mitral valve replacement as well as single-vessel bypass possible left subclavian stenosis repair. Patient states her subclavian is "blocked" despite previous stenting. Admission hemoglobin 5.9. MCV 78. Platelet 372. She received 2 units of blood. INR 5.5 received 2 units of FFP presently 2.0. Current hemoglobin 7.5. Upon review of previous CBCs hemoglobin was 9.1 on 09/07/2017 and in the 12 range February 2016. Last passage of black-colored stool was yesterday. Review of Systems Constitutional: Denies fever, chills, sweats, weight gain, or loss. HEENT: Negative for migraines, blurred vision or loss, earaches, drainage, tinnitus, oral mucosal lesions, dysphagia, or odynophagia. CARDIAC: Coronary artery disease. Valvular heart disease. Atrial fibrillation. Hypertension. Heparin lipidemia. Left subclavian stenosis. Negative for chest pain, arrhythmias, or palpitation. RESPIRATORY: Negative for shortness of breath, hemoptysis, cough, or sputum production. GI: See HPI for pertinent findings. : Negative for hematuria, urgency, frequency, polyuria, or dysuria. GYNc: Denies possibility of . Negative vaginal discharge. MUSCULOSKELETAL: Negative for muscle aches, swelling, arthritis, and arthralgias. NEUROLOGIC: Negative for stroke or TIA. ENDOCRINE: Negative for thyroid problems. SKIN: Negative for rash or itching. PSYCHIATRIC: Negative history for depression and anxiety Past Medical History Past Medical History: Atrial Fibrillation, Hyperlipidemia, Hypertension Additional Past Medical History / Comment(s): HX: Was told "leaky valve", pt states has been experiencing "gallbladder pain" has been followed by dr small for sx and elevated liver enzymes, shortness of breath with activity History of Any Multi-Drug Resistant Organisms: None Reported Past Surgical History: Heart Catheterization With Stent, Tonsillectomy Additional Past Surgical History / Comment(s): 05/03/15 L subclavian stent. Other SX:D&C,NILDA Past Anesthesia/Blood Transfusion Reactions: No Reported Reaction Additional Past Anesthesia/Blood Transfusion Reaction / Comm: patient states she has never received blood Date of Last Stent Placement:: 05/03/15 Past Psychological History: No Psychological Hx Reported Smoking Status: Former smoker Past Alcohol Use History: None Reported Past Drug Use History: None Reported - Past Family History Mother Family Medical History: Hypertension Additional Family Medical History / Comment(s): LEAKY HEART VALVES,HEART PROBLEMS, WITH BOWEL OBS Father Family Medical History: Myocardial Infarction ([place]) Additional Family Medical History / Comment(s): HEART PROBLEMS, AT AGE 68 WITH [place] Medications and Allergies Home Medications Medication Instructions Recorded Confirmed Type Escitalopram [Lexapro] 10 mg PO HS 02/01/14 10/12/17 History Aspirin EC [Ecotrin Low Dose] 162 mg PO HS 02/19/16 10/12/17 History Enalapril/Hydrochlorothiazide 1 tab PO HS 08/30/17 10/12/17 History [Enalapril-Hctz 10-25 mg Tablet] Atorvastatin [Lipitor] 20 mg PO DAILY #30 tab 09/04/17 10/12/17 Rx Furosemide [Lasix] 20 mg PO DAILY #30 tab 09/04/17 10/12/17 Rx Metoprolol Tartrate [Lopressor] 12.5 mg PO BID 09/17/17 10/12/17 History Warfarin [Coumadin] 5 mg PO DAILY@1800 09/17/17 10/12/17 History Amiodarone [Cordarone] 200 mg PO DAILY 10/12/17 10/12/17 History Naproxen 500 mg PO DAILY PRN 10/12/17 10/12/17 History Allergies Allergy/AdvReac Type Severity Reaction Status Date / Time codeine AdvReac Hallucinati Verified 10/12/17 12:08 ons Physical Exam Vitals: Vital Signs Temp Pulse Resp BP Pulse Ox 10/13/17 09:00 75 16 138/73 95 10/13/17 08:00 99 F 87 16 147/58 97 10/13/17 07:00 83 17 145/57 96 10/13/17 06:00 85 16 140/59 97 10/13/17 05:00 86 16 153/59 96 10/13/17 04:00 98.1 F 80 18 103/59 94 L 10/13/17 03:00 79 22 140/68 94 L 10/13/17 02:00 79 16 113/55 96 10/13/17 01:00 77 18 132/48 97 10/13/17 00:00 98.3 F 82 19 123/52 96 10/12/17 23:27 97.7 F 84 16 112/53 98 10/12/17 23:00 77 16 111/56 95 10/12/17 22:00 85 18 110/60 95 10/12/17 21:35 97.8 F 77 19 108/56 98 10/12/17 21:05 98.2 F 79 18 112/59 100 10/12/17 21:00 80 17 99/53 96 10/12/17 20:55 97.8 F 79 16 99/53 10/12/17 20:07 98.2 F 80 14 117/52 10/12/17 20:00 98.1 F 80 21 112/55 100 10/12/17 19:38 98 F 80 20 112/60 100 10/12/17 19:08 98.5 F 75 14 110/53 100 10/12/17 19:00 82 16 119/55 100 10/12/17 18:58 97.9 F 80 17 119/55 100 10/12/17 18:53 97.9 F 76 17 119/55 100 10/12/17 18:45 79 17 105/51 100 10/12/17 18:36 98.1 F 80 14 118/53 100 10/12/17 18:30 81 14 118/53 98 10/12/17 18:26 98.1 F 84 12 107/54 100 10/12/17 18:16 98.1 F 75 14 107/54 100 10/12/17 18:15 77 13 119/61 100 10/12/17 18:00 77 20 115/59 100 10/12/17 17:45 74 15 115/59 99 10/12/17 17:30 73 17 113/48 100 10/12/17 17:15 79 18 115/62 100 10/12/17 17:00 77 20 105/56 100 10/12/17 16:53 98.9 F 80 12 105/56 100 10/12/17 16:45 98.9 F 88 18 100 10/12/17 16:43 100 10/12/17 16:23 97.8 F 79 18 124/58 100 10/12/17 16:13 98.3 F 82 18 130/58 100 10/12/17 14:57 97.9 F 74 20 108/59 98 10/12/17 13:45 97.6 F 78 18 111/53 100 10/12/17 12:26 97.8 F 74 18 111/55 100 10/12/17 11:19 98.8 F 86 18 132/60 100 Intake and Output 10/12/17 10/13/17 10/13/17 22:59 06:59 14:59 Intake Total 1814 1070 100 Output Total 350 275 Balance 1464 795 100 Intake: IV 100 Sodium Chloride 0.9% 1, 100 000 ml @ 50 mls/hr IV . Q20H CARLEE Rx#:[id number] Intake, IV Titration 50 450 Amount Sodium Chloride 0.9% 1, 50 450 000 ml @ 50 mls/hr IV . Q20H CARLEE Rx#:[id number] Blood Product 1764 620 Ffp 24 Cp2d Unit 250 [id number] Ffp 24 Cpd Unit 322 [id number] Rc As-1 Unit 0 310 [id number] Rc As-1 Unit 310 [id number] Output: Urine 350 275 Other: Voiding Method Bedside Commode Bedside Commode # Voids 1 1 Weight 92.7 kg 97.9 kg General appearance: The patient is alert, oriented, in no acute distress. HET: Head is normocephalic and atraumatic. Pupils are equal and reactive. Oropharynx is clear without lesions. Neck: Supple without lymphadenopathy. Trachea midline. Heart: S1 S2. Regular rate and rhythm. Lungs: No crackles or wheezes are heard. Abdomen: Soft, nontender, nondistended with bowel sounds. No peritoneal signs. No palpable organomegaly or masses. Extremities: Normal skin color and turgor. No cyanosis, rash, ulceration, clubbing, or edema. Radial and pedal pulses are 2/4 bilaterally. Neurological: No focal deficits. Strength and sensation are grossly intact. Results CBC & Chem 7: 10/13/17 04:13 10/13/17 04:13 Labs: Abnormal Lab Results - Last 24 Hours (Table) 10/12/17 10/12/17 10/12/17 Range/Units 11:27 11:27 11:27 RBC 2.63 L (3.80-5.40) m/uL Hgb 5.9 L* D (11.4-16.0) gm/dL Hct 20.6 L (34.0-46.0) % MCV 78.1 L D (80.0-100.0) fL MCH 22.5 L (25.0-35.0) pg MCHC 28.8 L (31.0-37.0) g/dL RDW 19.1 H (11.5-15.5) % PT (9.0-12.0) sec INR (<1.2) APTT (22.0-30.0) sec Chloride 108 H (98-107) mmol/L BUN 24 H (7-17) mg/dL AST 62 H (14-36) U/L ALT 54 H (9-52) U/L Total Creatine Kinase 293 H (30-135) U/L Albumin 3.2 L (3.5-5.0) g/dL Stool Occult Blood (Negative) Crossmatch 10/12/17 10/12/17 10/12/17 Range/Units 11:27 11:27 13:40 RBC (3.80-5.40) m/uL Hgb (11.4-16.0) gm/dL Hct (34.0-46.0) % MCV (80.0-100.0) fL MCH (25.0-35.0) pg MCHC (31.0-37.0) g/dL RDW (11.5-15.5) % PT 49.8 H (9.0-12.0) sec INR 5.5 H* (<1.2) APTT 30.2 H (22.0-30.0) sec Chloride (98-107) mmol/L BUN (7-17) mg/dL AST (14-36) U/L ALT (9-52) U/L Total Creatine Kinase (30-135) U/L Albumin (3.5-5.0) g/dL Stool Occult Blood Positive H (Negative) Crossmatch See Detail 10/13/17 10/13/17 10/13/17 Range/Units 01:01 04:13 04:13 RBC 3.00 L 3.06 L (3.80-5.40) m/uL Hgb 7.5 L D 7.5 L (11.4-16.0) gm/dL Hct 25.2 L 25.3 L (34.0-46.0) % MCV (80.0-100.0) fL MCH 24.6 L (25.0-35.0) pg MCHC 29.8 L 29.8 L (31.0-37.0) g/dL RDW 16.7 H 18.0 H (11.5-15.5) % PT (9.0-12.0) sec INR (<1.2) APTT (22.0-30.0) sec Chloride 109 H (98-107) mmol/L BUN 25 H (7-17) mg/dL AST (14-36) U/L ALT (9-52) U/L Total Creatine Kinase (30-135) U/L Albumin (3.5-5.0) g/dL Stool Occult Blood (Negative) Crossmatch 10/13/17 Range/Units 07:33 RBC (3.80-5.40) m/uL Hgb (11.4-16.0) gm/dL Hct (34.0-46.0) % MCV (80.0-100.0) fL MCH (25.0-35.0) pg MCHC (31.0-37.0) g/dL RDW (11.5-15.5) % PT 18.1 H (9.0-12.0) sec INR 2.0 H (<1.2) APTT (22.0-30.0) sec Chloride (98-107) mmol/L BUN (7-17) mg/dL AST (14-36) U/L ALT (9-52) U/L Total Creatine Kinase (30-135) U/L Albumin (3.5-5.0) g/dL Stool Occult Blood (Negative) Crossmatch Assessment and Plan (1) Symptomatic anemia Current Visit: Yes Status: Acute Code(s): D64.9 - ANEMIA, UNSPECIFIED SNOMED Code(s): 914896059 (2) GI bleed Narrative/Plan: 3-4 week history of black colored bowel movements with worsening fatigue dyspnea. Possible peptic ulcer disease possible bleeding angiectasia. Small bowel pathology cannot be entirely excluded. Current Visit: Yes Status: Acute Code(s): K92.2 - GASTROINTESTINAL HEMORRHAGE, UNSPECIFIED SNOMED Code(s): 10877512 (3) Melena Current Visit: Yes Status: Acute Code(s): K92.1 - MELENA SNOMED Code(s): 8663845 (4) Acute blood loss anemia Current Visit: Yes Status: Acute Code(s): D62 - ACUTE POSTHEMORRHAGIC ANEMIA SNOMED Code(s): 137645204 (5) Mitral valve disease Current Visit: Yes Status: Acute Code(s): I05.9 - RHEUMATIC MITRAL VALVE DISEASE, UNSPECIFIED SNOMED Code(s): 85488054 (6) CAD (coronary artery disease) Current Visit: Yes Status: Acute Code(s): I25.10 - ATHSCL HEART DISEASE OF [place] CORONARY ARTERY W/O ANG PCTRS SNOMED Code(s): 70167904 (7) Warfarin-induced coagulopathy Current Visit: Yes Status: Acute Code(s): D68.9 - COAGULATION DEFECT, UNSPECIFIED; T45.515A - ADVERSE EFFECT OF ANTICOAGULANTS, INITIAL ENCOUNTER SNOMED Code(s): 64246922 (8) History of atrial fibrillation Current Visit: Yes Status: Chronic Code(s): Z86.79 - PERSONAL HISTORY OF OTHER DISEASES OF THE CIRCULATORY SYSTEM SNOMED Code(s): 389747843 Plan: 1. Transfuse 2 more units of FFP. 2. EGD evaluation today. 3. IV Protonix 40 mg every 12. 4. Hold antiplatelet/anticoagulation. The account maintenance representative has discussed the risks, benefits and alternative therapies for the above-mentioned procedure and for both sedation/analgesia as well as necessary blood product administration, if indicated, as they pertain to this patient. The patient has indicated understanding and acceptance of the risks and procedures discussed. Thank you for this kind referral and the opportunity to participate in the care of your patient. This consultation was discussed with Dr. Plummer. The impression and plan of care have been directed as dictated.
--- NOTE | 2017-10-13 11:00 | P.PN ---
Subjective Progress Note Date: 10/13/17 Principal diagnosis: Acute GI bleeding This is a very pleasant 67-year-old female patient who follows with Dr. Madden as her primary care physician. She has a history of atrial fibrillation, hyperlipidemia, hypertension, cholelithiasis, left subclavian stenosis with previous stent placement and subsequent reocclusion, cardiac catheterization performed 09/29/2017 revealed coronary artery disease with 70% stenosis in the proximal to mid circumflex and severe mitral regurgitation pending cardiothoracic surgical consultation and surgery. She has been on warfarin and Ecotrin 162 mg daily. She does have a history of chronic tobacco dependence however quit 2 years ago. She's never been told she has COPD/ emphysema or asthma. She is not on any inhalers in the outpatient setting. She presented here to the emergency room this morning with complaints of fatigue and worsening shortness of breath with minimal exertion. She's also had ongoing issues with left-sided chest discomfort radiating down her left arm. Initial troponin is negative. ProBNP 1160. She was found to be supratherapeutic on INR of 5.5 and a hemoglobin of 5.9 with stool occult blood positive. She had noticed some black tarry stool at home as well. Last colonoscopy 4 years ago. She is seen in the emergency room in consultation. She is awake and alert in no acute distress. She has remained hemodynamically stable. She is maintaining good O2 saturations up to 100% on 2 L/m per nasal cannula. Her chest x-ray reveals no acute pulmonary process. There is a noted left upper lobe pulmonary nodule. She's been afebrile. No tachypnea. No tachycardia. Currently in sinus rhythm. Rate well controlled. There is nonspecific ST and T wave abnormalities. Patient was reevaluated today on 10/13/2017, received so far a total of 2 units of packed RBCs and a total of 2 units of fresh frozen plasma. INR is down to 2.0, hemoglobin this morning is 7.5. Patient is scheduled to have EGD done by gastroenterology this afternoon. She was already seen by cardiothoracic surgery on consultation. Presently no active bleeding is going on, and she'll be receiving more fresh frozen plasma ordered by gastroenterology for EGD this afternoon. Patient is relatively asymptomatic. I reviewed her chest x-ray today, I do not see any evidence of a suspicious nodule, however patient could have a CT of the chest on outpatient basis post discharge. Objective - Vital Signs Vital signs: Vital Signs Temp 98.9 F 10/13/17 10:36 Pulse 75 10/13/17 10:36 Resp 20 10/13/17 10:36 BP 118/59 10/13/17 10:36 Pulse Ox 97 10/13/17 10:36 Intake & Output 10/12/17 10/13/17 10/13/17 18:59 06:59 18:59 Intake Total 870 2014 150 Output Total 0 625 325 Balance 870 1389 -175 Weight 92.7 kg 97.9 kg Intake: IV 150 Sodium Chloride 0.9% 1, 150 000 ml @ 50 mls/hr IV . Q20H CARLEE Rx#:[id number] Intake, IV Titration 500 Amount Sodium Chloride 0.9% 1, 500 000 ml @ 50 mls/hr IV . Q20H CARLEE Rx#:[id number] Blood Product 870 1514 0 Ffp 24 Cp2d Unit 250 [id number] Ffp 24 Cpd Unit 0 [id number] Ffp 24 Cpd Unit 0 322 [id number] Rc As-1 Unit 310 [id number] Rc As-1 Unit 310 [id number] Output: Urine 0 625 325 Other: Voiding Method Bedside Commode # Voids 1 - Exam GENERAL EXAM: Pale. Alert, oriented 3, comfortable in no apparent distress. HEAD: Normocephalic. EYES: Normal reaction of pupils, equal size. NOSE: Clear with pink turbinates. THROAT: No erythema or exudates. NECK: No masses, no JVD. CHEST: No chest wall deformity. LUNGS: Equal air entry with no crackles, wheeze, rhonchi or dullness. CVS: S1 and S2 normal with an audible murmur, regular rhythm. ABDOMEN: No hepatosplenomegaly, normal bowel sounds, no guarding or rigidity. SPINE: No scoliosis or deformity SKIN: No rashes CENTRAL NERVOUS SYSTEM: No focal deficits, tone is normal in all 4 extremities. EXTREMITIES: There is no peripheral edema. No clubbing, no cyanosis. Peripheral pulses are intact. - Labs CBC & Chem 7: 10/13/17 04:13 10/13/17 04:13 Labs: Abnormal Lab Results - Last 24 Hours (Table) 01/06/2110/12/17 10/12/17 Range/Units 11:27 11:27 11:27 RBC 2.63 L (3.80-5.40) m/uL Hgb 5.9 L* D (11.4-16.0) gm/dL Hct 20.6 L (34.0-46.0) % MCV 78.1 L D (80.0-100.0) fL MCH 22.5 L (25.0-35.0) pg MCHC 28.8 L (31.0-37.0) g/dL RDW 19.1 H (11.5-15.5) % PT (9.0-12.0) sec INR (<1.2) APTT (22.0-30.0) sec Chloride 108 H (98-107) mmol/L BUN 24 H (7-17) mg/dL AST 62 H (14-36) U/L ALT 54 H (9-52) U/L Total Creatine Kinase 293 H (30-135) U/L Albumin 3.2 L (3.5-5.0) g/dL Stool Occult Blood (Negative) Crossmatch 10/12/17 10/12/17 10/12/17 Range/Units 11:27 11:27 13:40 RBC (3.80-5.40) m/uL Hgb (11.4-16.0) gm/dL Hct (34.0-46.0) % MCV (80.0-100.0) fL MCH (25.0-35.0) pg MCHC (31.0-37.0) g/dL RDW (11.5-15.5) % PT 49.8 H (9.0-12.0) sec INR 5.5 H* (<1.2) APTT 30.2 H (22.0-30.0) sec Chloride (98-107) mmol/L BUN (7-17) mg/dL AST (14-36) U/L ALT (9-52) U/L Total Creatine Kinase (30-135) U/L Albumin (3.5-5.0) g/dL Stool Occult Blood Positive H (Negative) Crossmatch See Detail 10/13/17 10/13/17 10/13/17 Range/Units 01:01 04:13 04:13 RBC 3.00 L 3.06 L (3.80-5.40) m/uL Hgb 7.5 L D 7.5 L (11.4-16.0) gm/dL Hct 25.2 L 25.3 L (34.0-46.0) % MCV (80.0-100.0) fL MCH 24.6 L (25.0-35.0) pg MCHC 29.8 L 29.8 L (31.0-37.0) g/dL RDW 16.7 H 18.0 H (11.5-15.5) % PT (9.0-12.0) sec INR (<1.2) APTT (22.0-30.0) sec Chloride 109 H (98-107) mmol/L BUN 25 H (7-17) mg/dL AST (14-36) U/L ALT (9-52) U/L Total Creatine Kinase (30-135) U/L Albumin (3.5-5.0) g/dL Stool Occult Blood (Negative) Crossmatch 10/13/17 Range/Units 07:33 RBC (3.80-5.40) m/uL Hgb (11.4-16.0) gm/dL Hct (34.0-46.0) % MCV (80.0-100.0) fL MCH (25.0-35.0) pg MCHC (31.0-37.0) g/dL RDW (11.5-15.5) % PT 18.1 H (9.0-12.0) sec INR 2.0 H (<1.2) APTT (22.0-30.0) sec Chloride (98-107) mmol/L BUN (7-17) mg/dL AST (14-36) U/L ALT (9-52) U/L Total Creatine Kinase (30-135) U/L Albumin (3.5-5.0) g/dL Stool Occult Blood (Negative) Crossmatch Assessment and Plan Assessment: #1 Acute gastrointestinal bleeding, suspect lower of unclear etiology. Last colonoscopy 4 years ago. INR today is 2.0, hemoglobin is 7.5. Received so far a total of 3 units of packed RBCs and 2 units of fresh frozen plasma. #2 Severe mitral regurgitation. Cardiothoracic consultation pending. #3 Coronary artery disease with a 70% stenosis in the proximal to mid circumflex coronary artery. Cardiothoracic consultation pending. #4 Left subclavian stent in the proximal portion with a critical in-stent restenosis. Plans were for follow-up in the outpatient setting based on the amount of dye utilized during that admission. #5 Cholecystitis, possibly chronic in nature. #6 Hypertension. #7 Hyperlipidemia. #8 Chronic tobacco dependence of greater than 40 years however quit 2 years ago. #8 History of elevated liver enzymes, currently AST 62, ALT 54. #9 possible left lung nodule, not appreciated on the chest x-ray today, patient will probably need a CT of the chest on outpatient basis. He is to be a heavy smoker, she definitely has high risk for underlying pulmonary malignancy. Continue even consider a low-dose CT on outpatient basis. Recommendation: Agree with plans for EGD today, may or may not require colonoscopy, last colonoscopy was supposedly in the last 4 years. Patient will come back to the ICU, and depending on the findings of the EGD, and depending on her bleeding status, then we can decide whether to keep her in the ICU of transfer to a monitor bed on selective. Time with Patient: Less than 30
[2017-10-13] MEDS: SODIUM CHLORIDE 0.9% 1,000 ML IV SCH ×2 (11:03→18:10)
--- NOTE | 2017-10-13 11:25 | CDI ---
Last Revision, September 2017 Documentation Clarification Form Date: 10/13/2017 11:18:00 AM From: Karen Lora RN, CCDS Admit Date: 10/12/2017 1:59:00 PM Patient Name: Maritza Sadler Visit Number: [id number] ATTENTION: The Clinical Documentation Specialists (CDI) and [facility] Coding Staff appreciate your assistance in clarifying documentation. Please respond to the clarification below the line at the bottom and electronically sign. The CDI & [facility] Coding staff will review the response and follow-up if needed. Please note: Queries are made part of the Legal Health Record. If you have any questions, please contact the author of this message via ITS. Dr. Francisco Middleton Hx of Atrial fibrillation is documented in the H&P, Consults and Progress Notes and requires further specificity History/Risk Factors: Atrial Fib, Hyperlipidemia, HTN Clinical Indicators: 10/12 H&P: "Atrial fibrillation presently rate controlled: Patient will be started back on her A. fib medications and rate control medications except for Coumadin." EKG/telemetry: per ED note: "Sinus rhythm with PVC" Treatment: Amio 200 mg Po QD, Lopressor 12.5 mg PO BID In your professional opinion, can you please clarify the type of atrial fibrillation, if known? Chronic/Permanent Paroxysmal Persistent Other, please specify Unable to determine Please continue to document in your progress notes and discharge summary in order to capture severity of illness and risk of mortality. Include clinical findings that support your diagnosis. Will be a good question for cardiology MTDD
--- NOTE | 2017-10-13 12:17 | P.GSCN ---
<Parris Dawkins - Last Filed: 10/13/17 12:15> History of Present Illness Consult date: 10/13/17 Reason for Consult: Severe mitral regurgitation, surgical recommendations. Requesting physician: Lisbet Rutledge History of present illness: This 67-year-old female patient who follows with Dr. Elton Madden and who has a previous medical history of severe mitral regurgitation, left subclavian stenosis with stent placement in 2015 with recent discovery of critical re-in- stent stenosis, coronary artery disease, and previous tobacco dependence presented to the emergency room with complaints of fatigue and shortness of breath over the previous month, getting so bad in the last few days that she could barely even put her close on. She also had intermittent chest pain which would resolve with rest. In the ER she was noted to have a hemoglobin of 5.9 and with an INR of 5.5. She received 2 units of packed red blood cells, 2 units fresh frozen plasma, as well as vitamin K. Chest x-ray in the emergency room demonstrated no acute process however there is a left upper lobe pulmonary nodule. The patient was admitted to the intensive care unit for close monitoring and endoscopy to discover the source of her bleeding. Due to the patient's history of mitral regurgitation, Dr. Back from cardiothoracic surgery was consulted for treatment recommendations. Review of Systems 14 point review systems was completed and was negative except as noted - Constitutional Reports fatigue, Reports lethargy - Cardiovascular Reports as per HPI, Reports dyspnea on exertion - Gastrointestinal Reports melena Past Medical History Past Medical History: Atrial Fibrillation, Hyperlipidemia, Hypertension Additional Past Medical History / Comment(s): HX: Was told "leaky valve", pt states has been experiencing "gallbladder pain" has been followed by dr small for sx and elevated liver enzymes, shortness of breath with activity History of Any Multi-Drug Resistant Organisms: None Reported Past Surgical History: Heart Catheterization With Stent, Tonsillectomy Additional Past Surgical History / Comment(s): 05/03/15 L subclavian stent. Other SX:D&C,NILDA Past Anesthesia/Blood Transfusion Reactions: No Reported Reaction Additional Past Anesthesia/Blood Transfusion Reaction / Comm: patient states she has never received blood Date of Last Stent Placement:: 05/03/15 Past Psychological History: No Psychological Hx Reported Smoking Status: Former smoker Past Alcohol Use History: None Reported Past Drug Use History: None Reported - Past Family History Mother Family Medical History: Hypertension Additional Family Medical History / Comment(s): LEAKY HEART VALVES,HEART PROBLEMS, WITH BOWEL OBS Father Family Medical History: Myocardial Infarction (CA) Additional Family Medical History / Comment(s): HEART PROBLEMS, AT AGE 68 WITH CA Medications and Allergies Home Medications Medication Instructions Recorded Confirmed Type Escitalopram [Lexapro] 10 mg PO HS 02/01/14 10/12/17 History Aspirin EC [Ecotrin Low Dose] 162 mg PO HS 02/19/16 10/12/17 History Enalapril/Hydrochlorothiazide 1 tab PO HS 08/30/17 10/12/17 History [Enalapril-Hctz 10-25 mg Tablet] Atorvastatin [Lipitor] 20 mg PO DAILY #30 tab 09/04/17 10/12/17 Rx Furosemide [Lasix] 20 mg PO DAILY #30 tab 09/04/17 10/12/17 Rx Metoprolol Tartrate [Lopressor] 12.5 mg PO BID 09/17/17 10/12/17 History Warfarin [Coumadin] 5 mg PO DAILY@1800 09/17/17 10/12/17 History Amiodarone [Cordarone] 200 mg PO DAILY 10/12/17 10/12/17 History Naproxen 500 mg PO DAILY PRN 10/12/17 10/12/17 History Allergies Allergy/AdvReac Type Severity Reaction Status Date / Time codeine AdvReac Hallucinati Verified 10/12/17 12:08 ons Surgical - Exam Vital Signs Temp Pulse Resp BP Pulse Ox 98.8 F 86 18 132/60 100 10/12/17 11:19 10/12/17 11:19 10/12/17 11:19 10/12/17 11:19 10/12/17 11:19 - General well developed, well nourished, no distress, no pain, obese - Eyes PERRL, normal ocular movement - ENT no hearing loss - Neck no masses, no bruits, trachea midline - Respiratory Lungs sounds diminished bilaterally. Respirations even, nonlabored. Currently on room air with oxygen saturation 97%. - Cardiovascular S1, S2 present. Regular rate and rhythm, sinus rhythm on telemetry. Palpable peripheral pulses bilaterally. No edema present. - Abdomen Abdomen: soft, non tender, bowel sounds - Genitourinary Deferred - Rectum Deferred - Integumentary no rash, no growths - Neurologic normal coordination, normal sensation - Psychiatric oriented to time, oriented to person, oriented to place, speech is normal, memory intact Results - Labs 10/13/17 04:13 10/13/17 04:13 Abnormal Lab Results - Last 24 Hours (Table) 10/12/17 10/12/17 10/12/17 Range/Units 11:27 11:27 11:27 RBC 2.63 L (3.80-5.40) m/uL Hgb 5.9 L* D (11.4-16.0) gm/dL Hct 20.6 L (34.0-46.0) % MCV 78.1 L D (80.0-100.0) fL MCH 22.5 L (25.0-35.0) pg MCHC 28.8 L (31.0-37.0) g/dL RDW 19.1 H (11.5-15.5) % PT (9.0-12.0) sec INR (<1.2) APTT (22.0-30.0) sec Chloride 108 H (98-107) mmol/L BUN 24 H (7-17) mg/dL AST 62 H (14-36) U/L ALT 54 H (9-52) U/L Total Creatine Kinase 293 H (30-135) U/L Albumin 3.2 L (3.5-5.0) g/dL Stool Occult Blood (Negative) Crossmatch 10/12/17 10/12/17 10/12/17 Range/Units 11:27 11:27 13:40 RBC (3.80-5.40) m/uL Hgb (11.4-16.0) gm/dL Hct (34.0-46.0) % MCV (80.0-100.0) fL MCH (25.0-35.0) pg MCHC (31.0-37.0) g/dL RDW (11.5-15.5) % PT 49.8 H (9.0-12.0) sec INR 5.5 H* (<1.2) APTT 30.2 H (22.0-30.0) sec Chloride (98-107) mmol/L BUN (7-17) mg/dL AST (14-36) U/L ALT (9-52) U/L Total Creatine Kinase (30-135) U/L Albumin (3.5-5.0) g/dL Stool Occult Blood Positive H (Negative) Crossmatch See Detail 10/13/17 10/13/17 10/13/17 Range/Units 01:01 04:13 04:13 RBC 3.00 L 3.06 L (3.80-5.40) m/uL Hgb 7.5 L D 7.5 L (11.4-16.0) gm/dL Hct 25.2 L 25.3 L (34.0-46.0) % MCV (80.0-100.0) fL MCH 24.6 L (25.0-35.0) pg MCHC 29.8 L 29.8 L (31.0-37.0) g/dL RDW 16.7 H 18.0 H (11.5-15.5) % PT (9.0-12.0) sec INR (<1.2) APTT (22.0-30.0) sec Chloride 109 H (98-107) mmol/L BUN 25 H (7-17) mg/dL AST (14-36) U/L ALT (9-52) U/L Total Creatine Kinase (30-135) U/L Albumin (3.5-5.0) g/dL Stool Occult Blood (Negative) Crossmatch 10/13/17 Range/Units 07:33 RBC (3.80-5.40) m/uL Hgb (11.4-16.0) gm/dL Hct (34.0-46.0) % MCV (80.0-100.0) fL MCH (25.0-35.0) pg MCHC (31.0-37.0) g/dL RDW (11.5-15.5) % PT 18.1 H (9.0-12.0) sec INR 2.0 H (<1.2) APTT (22.0-30.0) sec Chloride (98-107) mmol/L BUN (7-17) mg/dL AST (14-36) U/L ALT (9-52) U/L Total Creatine Kinase (30-135) U/L Albumin (3.5-5.0) g/dL Stool Occult Blood (Negative) Crossmatch Diabetes panel 10/12/17 10/13/17 Range/Units 11:27 04:13 Sodium 140 141 (137-145) mmol/L Potassium 4.5 4.1 (3.5-5.1) mmol/L Chloride 108 H 109 H (98-107) mmol/L Carbon Dioxide 26 26 (22-30) mmol/L BUN 24 H 25 H (7-17) mg/dL Creatinine 1.01 0.90 (0.52-1.04) mg/dL Glucose 95 84 (74-99) mg/dL Calcium 8.6 8.6 (8.4-10.2) mg/dL AST 62 H (14-36) U/L ALT 54 H (9-52) U/L Alkaline Phosphatase 71 (38-126) U/L Total Protein 6.6 (6.3-8.2) g/dL Albumin 3.2 L (3.5-5.0) g/dL Calcium panel 10/12/17 10/13/17 Range/Units 11:27 04:13 Calcium 8.6 8.6 (8.4-10.2) mg/dL Phosphorus 3.1 (2.5-4.5) mg/dL Albumin 3.2 L (3.5-5.0) g/dL Pituitary panel 10/12/17 10/13/17 Range/Units 11:27 04:13 Sodium 140 141 (137-145) mmol/L Potassium 4.5 4.1 (3.5-5.1) mmol/L Chloride 108 H 109 H (98-107) mmol/L Carbon Dioxide 26 26 (22-30) mmol/L BUN 24 H 25 H (7-17) mg/dL Creatinine 1.01 0.90 (0.52-1.04) mg/dL Glucose 95 84 (74-99) mg/dL Calcium 8.6 8.6 (8.4-10.2) mg/dL Adrenal panel 10/12/17 10/13/17 Range/Units 11:27 04:13 Sodium 140 141 (137-145) mmol/L Potassium 4.5 4.1 (3.5-5.1) mmol/L Chloride 108 H 109 H (98-107) mmol/L Carbon Dioxide 26 26 (22-30) mmol/L BUN 24 H 25 H (7-17) mg/dL Creatinine 1.01 0.90 (0.52-1.04) mg/dL Glucose 95 84 (74-99) mg/dL Calcium 8.6 8.6 (8.4-10.2) mg/dL Total Bilirubin 0.2 (0.2-1.3) mg/dL AST 62 H (14-36) U/L ALT 54 H (9-52) U/L Alkaline Phosphatase 71 (38-126) U/L Total Protein 6.6 (6.3-8.2) g/dL Albumin 3.2 L (3.5-5.0) g/dL - Imaging Chest x-ray: report reviewed, image reviewed Assessment and Plan (1) Paroxysmal atrial fibrillation Current Visit: No Status: Resolved Code(s): I48.0 - PAROXYSMAL ATRIAL FIBRILLATION SNOMED Code(s): 513001905 (2) Hyperlipidemia Current Visit: Yes Status: Chronic Code(s): E78.5 - HYPERLIPIDEMIA, UNSPECIFIED SNOMED Code(s): 53735373 (3) Hypertension Current Visit: Yes Status: Chronic Code(s): I10 - ESSENTIAL (PRIMARY) HYPERTENSION SNOMED Code(s): 27012875 (4) Severe mitral regurgitation Current Visit: Yes Status: Chronic Code(s): I34.0 - NONRHEUMATIC MITRAL ( VALVE) INSUFFICIENCY SNOMED Code(s): 23381221 (5) Stenosis of left subclavian artery Current Visit: Yes Status: Chronic Code(s): I77.1 - STRICTURE OF ARTERY SNOMED Code(s): 868272860 (6) Tobacco dependence in remission Current Visit: No Status: Resolved Code(s): F17.201 - NICOTINE DEPENDENCE, UNSPECIFIED, IN REMISSION SNOMED Code(s): 286648929 (7) Acute blood loss anemia Current Visit: Yes Status: Acute Code(s): D62 - ACUTE POSTHEMORRHAGIC ANEMIA SNOMED Code(s): 746782814 (8) CAD (coronary artery disease) Current Visit: Yes Status: Chronic Code(s): I25.10 - ATHSCL HEART DISEASE OF [place] CORONARY ARTERY W/O ANG PCTRS SNOMED Code(s): 66183459 (9) GI bleed Current Visit: Yes Status: Acute Code(s): K92.2 - GASTROINTESTINAL HEMORRHAGE, UNSPECIFIED SNOMED Code(s): 90390395 (10) Melena Current Visit: Yes Status: Acute Code(s): K92.1 - MELENA SNOMED Code(s): 0856582 (11) Symptomatic anemia Current Visit: Yes Status: Acute Code(s): D64.9 - ANEMIA, UNSPECIFIED SNOMED Code(s): 559410129 (12) Warfarin-induced coagulopathy Current Visit: Yes Status: Acute Code(s): D68.9 - COAGULATION DEFECT, UNSPECIFIED; T45.515A - ADVERSE EFFECT OF ANTICOAGULANTS, INITIAL ENCOUNTER SNOMED Code(s): 68633412 Plan: The patient was seen and examined at the bedside. Chart/diagnostics reviewed. Case will be discussed with Dr. Back. Will review transesophageal echo and heart catheterization films. No plans for emergent surgical intervention at this time. Would like anemia, coagulopathy to be resolved prior to surgery. Continue amiodarone, statin, beta krunal. Preoperative teaching initiated with the patient. More recommendations to follow. Thank you Dr. Rutledge for this consult. We look forward to working with you in the care of your patient. Time with Patient: Greater than 30 <Dion Back - Last Filed: 10/13/17 17:24> Surgical - Exam Vital Signs Temp Pulse Resp BP Pulse Ox 98.8 F 86 18 132/60 100 10/12/17 11:19 10/12/17 11:19 10/12/17 11:19 10/12/17 11:19 10/12/17 11:19 Results - Labs 10/13/17 04:13 10/13/17 04:13 Abnormal Lab Results - Last 24 Hours (Table) 10/12/17 10/13/17 10/13/17 Range/Units 11:27 01:01 04:13 RBC 3.00 L 3.06 L (3.80-5.40) m/uL Hgb 7.5 L D 7.5 L (11.4-16.0) gm/dL Hct 25.2 L 25.3 L (34.0-46.0) % MCH 24.6 L (25.0-35.0) pg MCHC 29.8 L 29.8 L (31.0-37.0) g/dL RDW 16.7 H 18.0 H (11.5-15.5) % PT (9.0-12.0) sec INR (<1.2) Chloride (98-107) mmol/L BUN (7-17) mg/dL Crossmatch See Detail 10/13/17 10/13/17 Range/Units 04:13 07:33 RBC (3.80-5.40) m/uL Hgb (11.4-16.0) gm/dL Hct (34.0-46.0) % MCH (25.0-35.0) pg MCHC (31.0-37.0) g/dL RDW (11.5-15.5) % PT 18.1 H (9.0-12.0) sec INR 2.0 H (<1.2) Chloride 109 H (98-107) mmol/L BUN 25 H (7-17) mg/dL Crossmatch Diabetes panel 10/13/17 Range/Units 04:13 Sodium 141 (137-145) mmol/L Potassium 4.1 (3.5-5.1) mmol/L Chloride 109 H (98-107) mmol/L Carbon Dioxide 26 (22-30) mmol/L BUN 25 H (7-17) mg/dL Creatinine 0.90 (0.52-1.04) mg/dL Glucose 84 (74-99) mg/dL Calcium 8.6 (8.4-10.2) mg/dL Calcium panel 10/13/17 Range/Units 04:13 Calcium 8.6 (8.4-10.2) mg/dL Phosphorus 3.1 (2.5-4.5) mg/dL Pituitary panel 10/13/17 Range/Units 04:13 Sodium 141 (137-145) mmol/L Potassium 4.1 (3.5-5.1) mmol/L Chloride 109 H (98-107) mmol/L Carbon Dioxide 26 (22-30) mmol/L BUN 25 H (7-17) mg/dL Creatinine 0.90 (0.52-1.04) mg/dL Glucose 84 (74-99) mg/dL Calcium 8.6 (8.4-10.2) mg/dL Adrenal panel 10/13/17 Range/Units 04:13 Sodium 141 (137-145) mmol/L Potassium 4.1 (3.5-5.1) mmol/L Chloride 109 H (98-107) mmol/L Carbon Dioxide 26 (22-30) mmol/L BUN 25 H (7-17) mg/dL Creatinine 0.90 (0.52-1.04) mg/dL Glucose 84 (74-99) mg/dL Calcium 8.6 (8.4-10.2) mg/dL Assessment and Plan Plan: The patient was seen and examined. I agree with the above assessment and plan. The patient is a 67-year-old female who was diagnosed with severe mitral regurgitation along with coronary artery disease. She was scheduled to follow up with our service as an outpatient however she was admitted to the hospital yesterday with a GI bleed and a hemoglobin of 5.9. Of note she does have a history of atrial fibrillation and was on Coumadin with a supratherapeutic INR. EGD was performed today which revealed a duodenal ulcer which was cauterized. We will begin our preoperative workup. The patient will need dental clearance. She will likely be discharged home soon and I will have her follow- up in our office with plans for surgical intervention within the next several weeks.
[2017-10-13] MEDS ORDERED: IV FLUID CONTINUATION 1,000 ML IV ONE (12:34)
--- NOTE | 2017-10-13 12:52 | P.PCN ---
Date of Procedure: 10/13/17 Procedure(s) Performed: BRIEF HISTORY: Patient is a 67-year-old, pleasant, female, admitted to hospital with black tarry stools for almost one month duration. She has history of A. fib and has been on Coumadin for the last 2 months which has been on hold and coagulopathy has been the was with vitamin K and fresh wasn't plasma. Initial hemoglobin was 5.6 and received 2 units of blood transfusion. She is scheduled for an upper endoscopy to evaluate for possible upper GI source of bleeding. PROCEDURE PERFORMED: Esophagogastroduodenoscopy with argon plasma coagulation. PREOPERATIVE DIAGNOSIS: Black tarry stools of one month duration. IV sedation per anesthesia. PROCEDURE: After informed consent was obtained, the patient was brought into the endoscopy unit. IV sedation was administered by Anesthesia under continuous monitoring. Initially the Olympus GIF-140 video endoscope was inserted into the mouth. Esophagus intubated without any difficulty. It was gradually advanced into the stomach and duodenum and carefully examined. The second part of the duodenum appeared normal. in the bulb of the duodenum there were a few scattered angiectasia identified with no active bleeding and these may coagulated with argon plasma. The scope at this time was withdrawn to the stomach, adequately insufflated with air, and upon careful examination, mucosa of the antrum, had scattered erosions and in the proximal body the stomach there was a small nonbleeding angiectasia identified which was also coagulated with argon plasma. The rest of the body, cardia and the fundus appeared normal. The scope was then withdrawn into the esophagus. The GE junction was located at 39 cm from the incisors. small hiatal hernia noted. The esophagus appeared normal. There were no erosions or ulcerations seen and the patient tolerated the procedure well. IMPRESSION: 1. Scattered angiectasia in the proximal body of the stomach and duodenal bulb with no active bleeding, status post argon plasma coagulation as described. 2. Antral erosive gastritis. 3. Small hiatal hernia. RECOMMENDATIONS: The findings of this examination were discussed with the patient as well as her family. At this time continue with Protonix and hold Coumadin for 2-3 days. Diet will be advanced as tolerated..
--- NOTE | 2017-10-13 14:17 | CONS ---
CONSULTATION Mrs. Sadler is a 67-year-old female who presented to the emergency room with symptoms of progressive fatigue, lack of energy and shortness of breath. 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 She has history of paroxysmal fibrillation on presentation. She presented with progressive fatigue, lack of energy, and dark stools and was found to have severely anemic with heme-positive stool. Patient has been followed by Dr. Crawley in regard to her cardiac history. She has the history of mitral regurgitation, but that has been followed over the last few years, symptomatically she was worse recently and her NILDA performed severe mitral regurgitation. She has not been scheduled for surgical intervention as of yet at the time of her presentation. She has been complaining of progressive fatigue for the last few months, but much worse over the last few days. She has some dizziness. No palpitation. No syncope. She denies any clear PND or orthopnea. She has not noted significant peripheral edema. MEDICATIONS: At home included amiodarone 200 mg daily, enalapril HCT 10/25 mg daily, Lipitor 20 mg daily, aspirin once a day, Coumadin, metoprolol tartrate 12.5 mg twice a day, furosemide 20 mg daily, Lexapro 10 mg daily. Her coronary risk factors are remarkable for hypertension, hyperlipidemia. She is nondiabetic, nonsmoker. REVIEW OF SYSTEMS: RESPIRATORY SYSTEM: She had dyspnea on exertion. No recent wheezing or cough. GI SYSTEM: She had the GI bleeding as noted. She had prior black stool when she was on Coumadin. SYSTEM: No dysuria or hematuria. NERVOUS SYSTEM: No history of stroke or seizure. PHYSICAL EXAMINATION: She is a 67-year-old female, alert, oriented, in no apparent distress. Blood pressure 132/80 with a heart in the 80's. HEAD: Normocephalic. EYES: Sclerae nonicteric. NECK: Good upstroke. No bruit. Lungs with few crackles bilaterally. HEART: Regular rate and rhythm, S1, S2. No S3 with a holosystolic murmur 3/6 heard at the apex. No diastolic murmur. ABDOMEN: Soft, nontender. Positive bowel sounds, no organomegaly. EXTREMITIES: No edema. Decreased left radial pulse. LAB DATA: Revealed a hemoglobin of 7.5 after transfusion, on presentation it was 5.9, INR today is 2.0, on admission 5.5, BUN and creatinine 25 and 0.9. Potassium of 4.1. She is heme positive. Troponin less than 0.012. NT proBNP 1160. EKG revealed a sinus mechanism with occasional PAC's and nonspecific T-wave inversion. Chest x-ray shows a left upper lobe pulmonary nodule. IMPRESSION: 1. Severe anemia related to gastrointestinal bleeding related to the anticoagulation and the antiplatelets. Patient has underwent upper endoscopy and was found to have scattered angiectasia and underwent argon plasma coagulation. 2. Severe mitral regurgitation and coronary artery disease. Was being evaluated to undergo mitral valve repair and coronary bypass grafting. 3. Left subclavian restenoses. 4. History of hypertension. 5. Hyperlipidemia. 6. Paroxysmal atrial fibrillation. RECOMMENDATION: From the cardiac standpoint, will continue present medical regimen. Patient anticoagulation is on hold. She will be evaluated by the Surgical Team regarding timing for surgery, which will need to wait until her bleeding stabilizes. The issue will be the timing of the mitral valve surgery and the subclavian revascularization. Thank you for this consult. Will follow with you. JOSIANEODL / IJN: [id number] /
--- NOTE | 2017-10-13 17:43 | P.PN ---
Subjective Patient was admitted secondary to symptomatic acute upper GI bleed found to have angioectasia in the stomach for which patient underwent argon plasma coagulation. Patient was evaluated by cardiology as well as a cardiac thoracic surgery. Patient will transfer out of ICU patient hemoglobin remained stable at 7.2 received 2 units of blood transfusion patient also found to have small hiatal hernia patient is feeling much better today symptoms resolved completely. Patient continues to be off anticoagulation. Constitutional: Denied any fatigue denied any fever. Cardio vascular: denied any chest pain, palpitations Gastrointestinal denied any nausea vomiting Pulmonary: Denied any shortness of breath cough Neurologic denied any new focal deficits Objective - Vital Signs Vital signs: Vital Signs Temp 98.2 F 10/13/17 16:45 Pulse 84 10/13/17 16:45 Resp 17 10/13/17 16:45 BP 143/62 10/13/17 16:45 Pulse Ox 96 10/13/17 16:45 Intake & Output 10/12/17 10/13/17 10/13/17 18:59 06:59 18:59 Intake Total 870 2014 2120 Output Total 0 625 850 Balance 870 1389 1270 Weight 92.7 kg 97.9 kg Intake: IV 650 Sodium Chloride 0.9% 1, 350 000 ml @ 50 mls/hr IV . Q20H [facility] Rx#:[id number] Intake, IV Titration 500 Amount Sodium Chloride 0.9% 1, 500 000 ml @ 50 mls/hr IV . Q20H [facility] Rx#:[id number] Oral 250 Blood Product 870 1514 1220 Ffp 24 Cp2d Unit 250 [id number] Ffp 24 Cpd Unit 308 [id number] Ffp 24 Cpd Unit 302 [id number] Ffp 24 Cpd Unit 0 322 [id number] Rc As-1 Unit 310 [id number] Rc As-1 Unit 310 [id number] Output: Urine 0 625 850 Other: Voiding Method Bedside Commode Bedside Commode # Voids 1 - Exam PHYSICAL EXAMINATION: GENERAL: The patient is alert and oriented x3, not in any acute distress. Well developed, well nourished. HEENT: Pupils are round and equally reacting to light. EOMI. No scleral icterus. No conjunctival pallor. Normocephalic, atraumatic. No pharyngeal erythema. No thyromegaly. CARDIOVASCULAR: S1 and S2 present. No murmurs, rubs, or gallops. PULMONARY: Chest is clear to auscultation, no wheezing or crackles. ABDOMEN: Soft, nontender, nondistended, normoactive bowel sounds. No palpable organomegaly. MUSCULOSKELETAL: No joint swelling or deformity. EXTREMITIES: No cyanosis, clubbing, or pedal edema. NEUROLOGICAL: Gross neurological examination did not reveal any focal deficits. SKIN: No rashes. - Labs CBC & Chem 7: 10/13/17 04:13 10/13/17 04:13 Labs: Abnormal Lab Results - Last 24 Hours (Table) 10/12/17 10/13/17 10/13/17 Range/Units 11:27 01:01 04:13 RBC 3.00 L 3.06 L (3.80-5.40) m/uL Hgb 7.5 L D 7.5 L (11.4-16.0) gm/dL Hct 25.2 L 25.3 L (34.0-46.0) % MCH 24.6 L (25.0-35.0) pg MCHC 29.8 L 29.8 L (31.0-37.0) g/dL RDW 16.7 H 18.0 H (11.5-15.5) % PT (9.0-12.0) sec INR (<1.2) Chloride (98-107) mmol/L BUN (7-17) mg/dL Crossmatch See Detail 10/13/17 10/13/17 Range/Units 04:13 07:33 RBC (3.80-5.40) m/uL Hgb (11.4-16.0) gm/dL Hct (34.0-46.0) % MCH (25.0-35.0) pg MCHC (31.0-37.0) g/dL RDW (11.5-15.5) % PT 18.1 H (9.0-12.0) sec INR 2.0 H (<1.2) Chloride 109 H (98-107) mmol/L BUN 25 H (7-17) mg/dL Crossmatch Assessment and Plan Plan: -Severe symptomatic anemia: Acute blood loss anemia Due to upper GI bleed secondary to angiectasia for which patient underwent argon plasma coagulation -Coumadin coagulopathy: Holding Coumadin patient was given 2.5 mg of vitamin K. INR is 2 today -Coronary artery disease aspirin is being held -Atrial fibrillation, paroxysmal atrial fibrillation presently rate controlled: Patient will be started back on her A. fib medications and rate control medications except for Coumadin. -Left subclavian stenosis. -Mitral regurgitation: Cardiothoracic surgery evaluated the patient
[2017-10-13] MEDS: ATORVASTATIN 20 MG TAB PO SCH (20:40)
[2017-10-13] MEDS: ESCITALOPRAM 10 MG TAB PO SCH (20:40)
[2017-10-14 05:01] LABS: INR 1.5 (<1.2); Prothrombin Time 13.8 sec (9.0-12.0)
[2017-10-14 05:02] LABS: Anisocytosis Slight; Basophils % (A) 0 %; Eosinophils # (A) 0.4 k/uL (0-0.7); Eosinophils % (A) 4 %; HCT 24.1 % (34.0-46.0); HGB 7.3 gm/dL (11.4-16.0); Hypochromasia Marked; Lymphocytes # (A) 1.3 k/uL (1.0-4.8); Lymphocytes % (A) 15 %; MCH 24.9 pg (25.0-35.0); MCHC 30.4 g/dL (31.0-37.0); MCV 81.9 fL (80.0-100.0); Mean Platelet Volume 7.9; Microcytosis Slight; Monocytes # (A) 0.5 k/uL (0-1.0); Monocytes % (A) 6 %; Neutrophils # (A) 6.3 k/uL (1.3-7.7); Neutrophils % (A) 72 %; Platelet Count 292 k/uL (150-450); Poikilocytosis Moderate; RBC 2.95 m/uL (3.80-5.40); RDW 19.3 % (11.5-15.5); WBC 8.8 k/uL (3.8-10.6)
[2017-10-14 05:07] LABS: Anion Gap 5 mmol/L; Blood Urea Nitrogen 20 mg/dL (7-17); Calcium 8.7 mg/dL (8.4-10.2); Carbon Dioxide 28 mmol/L (22-30); Chloride 108 mmol/L (98-107); Glucose 90 mg/dL (74-99); Magnesium 2.1 mg/dL (1.6-2.3); Phosphorus 3.6 mg/dL (2.5-4.5); Potassium 4.1 mmol/L (3.5-5.1); Sodium 141 mmol/L (137-145)
[2017-10-14 06:54] VITALS: RESP 18
[2017-10-14] MEDS: FUROSEMIDE 20 MG TAB PO SCH (08:18)
[2017-10-14] MEDS: PANTOPRAZOLE 40 MG/10 ML VIAL IV SCH (08:18)
[2017-10-14] MEDS: METOPROLOL TARTRATE 12.5 MG TAB PO SCH (08:18)
[2017-10-14 08:24] VITALS: TEMP 97.1
--- NOTE | 2017-10-14 09:22 | XR ---
EXAMINATION TYPE: XR chest 1V DATE OF EXAM: 10/14/2017 COMPARISON: 10/13/2017 HISTORY: Shortness of breath TECHNIQUE: Single frontal view of the chest is obtained. FINDINGS: There is no focal air space opacity, pleural effusion, or pneumothorax seen. The cardiac silhouette size is within normal limits. The osseous structures are intact. Atherosclerotic change of the aorta. Arthropathy of the shoulders. Heart size slightly prominent. IMPRESSION: No acute process.
--- NOTE | 2017-10-14 10:01 | P.PN ---
Subjective Progress Note Date: 10/14/17 Principal diagnosis: Severe mitral regurgitation. Current admission for acute blood loss anemia secondary to GI bleed, coagulopathy on chronic Coumadin. History of left subclavian stenosis with stent placement in 2014 with a recent discovery of critical re-in stent stenosis, coronary artery disease with 70% stenosis in the circumflex artery, previous tobacco dependence, paroxysmal atrial fibrillation, hypertension, hyperlipidemia. POD #1 EGD. The patient's currently sitting up in the chair in no acute distress. Denies pain, shortness of breath. Had EGD done yesterday with argon plasma coagulation of duodenal scattered non-bleeding angiectasia as well as non- bleeding angiectasia of the proximal body of the stomach. Patient has received a total of 2 units packed red blood cells and 4 units fresh frozen plasma this admission. Objective - Vital Signs Vital signs: Vital Signs Temp 97.1 F L 10/14/17 08:00 Pulse 92 10/14/17 08:00 Resp 18 10/14/17 06:53 BP 112/62 10/14/17 08:00 Pulse Ox 98 10/14/17 08:00 Intake & Output 10/13/17 10/14/17 10/14/17 18:59 06:59 18:59 Intake Total 2220 50 360 Output Total 1075 Balance 1145 50 360 Weight 97.3 kg Intake: IV 750 50 Sodium Chloride 0.9% 1, 450 50 000 ml @ 50 mls/hr IV . Q20H [facility] Rx#:[id number] Oral 250 360 Blood Product 1220 Ffp 24 Cpd Unit 308 [id number] Ffp 24 Cpd Unit 302 [id number] Output: Urine 1075 Other: Voiding Method Bedside Commode Bedside Commode - Constitutional General appearance: Present: cooperative, no acute distress - Respiratory Details: Lungs sounds clear to auscultation bilaterally. Respirations even, nonlabored. Currently on room air with oxygen saturation 95%. - Cardiovascular Details: S1, S2 present. Regular rate and rhythm, sinus rhythm on telemetry. Palpable peripheral pulses bilaterally. No edema present. - Gastrointestinal Gastrointestinal Comment(s): Abdomen soft, nontender, nondistended. Active bowel sounds present 4 quadrants. Tolerating clear liquids. - Genitourinary Genitourinary Comment(s): Continues to void - Integumentary Integumentary Comment(s): Skin warm, dry, pink with evidence of good perfusion. - Neurologic Neurologic: Present: CNII-XII intact - Musculoskeletal Musculoskeletal: Present: gait normal, strength equal bilaterally - Psychiatric Psychiatric: Present: A&O x's 3, appropriate affect, intact judgment & insight - Allied health notes Allied health notes reviewed: nursing - Labs CBC & Chem 7: 10/14/17 04:40 10/14/17 04:40 Labs: Abnormal Lab Results - Last 24 Hours (Table) 10/14/17 10/14/17 10/14/17 Range/Units 04:40 04:40 04:40 RBC 2.95 L (3.80-5.40) m/uL Hgb 7.3 L (11.4-16.0) gm/dL Hct 24.1 L (34.0-46.0) % MCH 24.9 L (25.0-35.0) pg MCHC 30.4 L (31.0-37.0) g/dL RDW 19.3 H (11.5-15.5) % PT 13.8 H (9.0-12.0) sec INR 1.5 H (<1.2) Chloride 108 H (98-107) mmol/L BUN 20 H (7-17) mg/dL - Imaging and Cardiology Chest x-ray: report reviewed, image reviewed Assessment and Plan (1) Paroxysmal atrial fibrillation Current Visit: No Status: Resolved Code(s): I48.0 - PAROXYSMAL ATRIAL FIBRILLATION SNOMED Code(s): 106421192 (2) Hyperlipidemia Current Visit: Yes Status: Chronic Code(s): E78.5 - HYPERLIPIDEMIA, UNSPECIFIED SNOMED Code(s): 55684331 (3) Hypertension Current Visit: Yes Status: Chronic Code(s): I10 - ESSENTIAL (PRIMARY) HYPERTENSION SNOMED Code(s): 44670515 (4) Severe mitral regurgitation Current Visit: Yes Status: Chronic Code(s): I34.0 - NONRHEUMATIC MITRAL ( VALVE) INSUFFICIENCY SNOMED Code(s): 30706137 (5) Stenosis of left subclavian artery Current Visit: Yes Status: Chronic Code(s): I77.1 - STRICTURE OF ARTERY SNOMED Code(s): 891673911 (6) Tobacco dependence in remission Current Visit: No Status: Resolved Code(s): F17.201 - NICOTINE DEPENDENCE, UNSPECIFIED, IN REMISSION SNOMED Code(s): 626400025 (7) Acute blood loss anemia Current Visit: Yes Status: Acute Code(s): D62 - ACUTE POSTHEMORRHAGIC ANEMIA SNOMED Code(s): 257007890 (8) CAD (coronary artery disease) Current Visit: Yes Status: Chronic Code(s): I25.10 - ATHSCL HEART DISEASE OF [place] CORONARY ARTERY W/O ANG PCTRS SNOMED Code(s): 33848174 (9) GI bleed Current Visit: Yes Status: Acute Code(s): K92.2 - GASTROINTESTINAL HEMORRHAGE, UNSPECIFIED SNOMED Code(s): 75980148 (10) Melena Current Visit: Yes Status: Acute Code(s): K92.1 - MELENA SNOMED Code(s): 4626348 (11) Symptomatic anemia Current Visit: Yes Status: Acute Code(s): D64.9 - ANEMIA, UNSPECIFIED SNOMED Code(s): 220355060 (12) Warfarin-induced coagulopathy Current Visit: Yes Status: Acute Code(s): D68.9 - COAGULATION DEFECT, UNSPECIFIED; T45.515A - ADVERSE EFFECT OF ANTICOAGULANTS, INITIAL ENCOUNTER SNOMED Code(s): 44430315 Plan: 1. Continue amiodarone, statin, Lasix, beta krunal. 2. Monitor labs. 3. Will obtain pulmonary function test and carotid ultrasound while patient is hospitalized as part of her preoperative workup for mitral valve surgery. 4. No plans for immediate mitral valve surgery, however patient is to follow in the office with Dr. Back to determine timing of surgery. 5. Patient will need dental clearance prior to surgery. She has a separate appointment already. 6. Medical management per primary care service. 7. May discharge to home per primary care service from our standpoint. Time with Patient: Greater than 30
--- NOTE | 2017-10-14 10:06 | P.PN ---
Subjective Progress Note Date: 10/14/17 Principal diagnosis: Acute upper GI bleed Status post EGD yesterday for evaluation of melena and symptomatic anemia with findings of nonbleeding scattered angiectasia in the proximal body of the stomach and duodenal bulb status post argon plasma coagulation. No recurrence of melena. Feels well. Denies abdominal pain. Tolerating diet. Anticoagulation on hold. Hemoglobin 7.3. INR 1.5. Objective - Vital Signs Vital signs: Vital Signs Temp 97.1 F L 10/14/17 08:00 Pulse 92 10/14/17 08:00 Resp 18 10/14/17 06:53 BP 112/62 10/14/17 08:00 Pulse Ox 98 10/14/17 08:00 Intake & Output 10/13/17 10/14/17 10/14/17 18:59 06:59 18:59 Intake Total 2220 50 360 Output Total 1075 Balance 1145 50 360 Weight 97.3 kg Intake: IV 750 50 Sodium Chloride 0.9% 1, 450 50 000 ml @ 50 mls/hr IV . Q20H [facility] Rx#:[id number] Oral 250 360 Blood Product 1220 Ffp 24 Cpd Unit 308 [id number] Ffp 24 Cpd Unit 302 [id number] Output: Urine 1075 Other: Voiding Method Bedside Commode Bedside Commode - Exam General appearance: The patient is alert, oriented, in no acute distress. HET: Head is normocephalic and atraumatic. Pupils are equal and reactive. Oropharynx is clear without lesions. Neck: Supple without lymphadenopathy. Trachea midline. Heart: S1 S2. Lungs: No crackles or wheezes are heard. Abdomen: Soft, nontender, nondistended with bowel sounds. No peritoneal signs. No palpable organomegaly or masses. Extremities: Normal skin color and turgor. No cyanosis, rash, ulceration, clubbing, or edema. Radial and pedal pulses are 2/4 bilaterally. Neurological: No focal deficits. Strength and sensation are grossly intact. - Labs CBC & Chem 7: 10/14/17 04:40 10/14/17 04:40 Labs: Abnormal Lab Results - Last 24 Hours (Table) 10/14/17 10/14/17 10/14/17 Range/Units 04:40 04:40 04:40 RBC 2.95 L (3.80-5.40) m/uL Hgb 7.3 L (11.4-16.0) gm/dL Hct 24.1 L (34.0-46.0) % MCH 24.9 L (25.0-35.0) pg MCHC 30.4 L (31.0-37.0) g/dL RDW 19.3 H (11.5-15.5) % PT 13.8 H (9.0-12.0) sec INR 1.5 H (<1.2) Chloride 108 H (98-107) mmol/L BUN 20 H (7-17) mg/dL Assessment and Plan (1) GI bleed Narrative/Plan: Nonbleeding scattered angiectasia stomach and duodenum status post EGD with argon plasma coagulation Current Visit: Yes Status: Acute Code(s): K92.2 - GASTROINTESTINAL HEMORRHAGE, UNSPECIFIED SNOMED Code(s): 17334214 (2) Symptomatic anemia Current Visit: Yes Status: Acute Code(s): D64.9 - ANEMIA, UNSPECIFIED SNOMED Code(s): 633829738 (3) Melena Current Visit: Yes Status: Acute Code(s): K92.1 - MELENA SNOMED Code(s): 9790982 (4) Acute blood loss anemia Current Visit: Yes Status: Acute Code(s): D62 - ACUTE POSTHEMORRHAGIC ANEMIA SNOMED Code(s): 093081666 (5) Mitral valve disease Current Visit: Yes Status: Acute Code(s): I05.9 - RHEUMATIC MITRAL VALVE DISEASE, UNSPECIFIED SNOMED Code(s): 21956234 (6) CAD (coronary artery disease) Current Visit: Yes Status: Chronic Code(s): I25.10 - ATHSCL HEART DISEASE OF [place] CORONARY ARTERY W/O ANG PCTRS SNOMED Code(s): 78609084 (7) Warfarin-induced coagulopathy Current Visit: Yes Status: Acute Code(s): D68.9 - COAGULATION DEFECT, UNSPECIFIED; T45.515A - ADVERSE EFFECT OF ANTICOAGULANTS, INITIAL ENCOUNTER SNOMED Code(s): 07204434 (8) History of atrial fibrillation Current Visit: Yes Status: Chronic Code(s): Z86.79 - PERSONAL HISTORY OF OTHER DISEASES OF THE CIRCULATORY SYSTEM SNOMED Code(s): 108702859 Plan: 1. 1. Continue to hold Coumadin for 2 additional days. Continue Protonix 40 mg daily. CBC monitoring. We'll follow as needed. Assessment and plan a care discussed with Dr. Plummer
--- NOTE | 2017-10-14 12:29 | P.PN ---
Subjective Progress Note Date: 10/14/17 Principal diagnosis: Acute GI bleeding. This is a very pleasant 67-year-old female patient who follows with Dr. Madden as her primary care physician. She has a history of atrial fibrillation, hyperlipidemia, hypertension, cholelithiasis, left subclavian stenosis with previous stent placement and subsequent reocclusion, cardiac catheterization performed 09/29/2017 revealed coronary artery disease with 70% stenosis in the proximal to mid circumflex and severe mitral regurgitation pending cardiothoracic surgical consultation and surgery. She has been on warfarin and Ecotrin 162 mg daily. She does have a history of chronic tobacco dependence however quit 2 years ago. She's never been told she has COPD/ emphysema or asthma. She is not on any inhalers in the outpatient setting. She presented here to the emergency room this morning with complaints of fatigue and worsening shortness of breath with minimal exertion. She's also had ongoing issues with left-sided chest discomfort radiating down her left arm. Initial troponin is negative. ProBNP 1160. She was found to be supratherapeutic on INR of 5.5 and a hemoglobin of 5.9 with stool occult blood positive. She had noticed some black tarry stool at home as well. Last colonoscopy 4 years ago. She is seen in the emergency room in consultation. She is awake and alert in no acute distress. She has remained hemodynamically stable. She is maintaining good O2 saturations up to 100% on 2 L/m per nasal cannula. Her chest x-ray reveals no acute pulmonary process. There is a noted left upper lobe pulmonary nodule. She's been afebrile. No tachypnea. No tachycardia. Currently in sinus rhythm. Rate well controlled. There is nonspecific ST and T wave abnormalities. Patient was reevaluated today on 10/13/2017, received so far a total of 2 units of packed RBCs and a total of 2 units of fresh frozen plasma. INR is down to 2.0, hemoglobin this morning is 7.5. Patient is scheduled to have EGD done by gastroenterology this afternoon. She was already seen by cardiothoracic surgery on consultation. Presently no active bleeding is going on, and she'll be receiving more fresh frozen plasma ordered by gastroenterology for EGD this afternoon. Patient is relatively asymptomatic. I reviewed her chest x-ray today, I do not see any evidence of a suspicious nodule, however patient could have a CT of the chest on outpatient basis post discharge. She was seen and evaluated today in her 2017 on the selective care unit. She is awake and alert in no acute distress. She did undergo EGD yesterday that revealed scattered angiectasia in the proximal body of the stomach and duodenal bulb with no active bleeding, status post argon plasma coagulation. There is evidence of antral erosive gastritis and a small hiatal hernia. Maintained on Protonix. Her Coumadin is to be held for another 2-3 days. She is status post 2 units of red blood cell transfusions and 4 units of fresh frozen plasma. Her current hemoglobin is 7.3. INR 1.5. No pulmonary complaints. She is maintaining good O2 saturations in the high 90s on room air. She's been afebrile. Hemodynamically stable. The plan is for dental clearance in the outpatient setting and subsequent mitral valve surgery. She will receive the pulmonary function tests today as well as carotid Dopplers. Objective - Vital Signs Vital signs: Vital Signs Temp 97.1 F L 10/14/17 08:00 Pulse 92 10/14/17 08:00 Resp 18 10/14/17 06:53 BP 112/62 10/14/17 08:00 Pulse Ox 98 10/14/17 08:00 Intake & Output 10/13/17 10/14/17 10/14/17 18:59 06:59 18:59 Intake Total 2220 50 360 Output Total 1075 Balance 1145 50 360 Weight 97.3 kg Intake: IV 750 50 Sodium Chloride 0.9% 1, 450 50 000 ml @ 50 mls/hr IV . Q20H [facility] Rx#:[id number] Oral 250 360 Blood Product 1220 Ffp 24 Cpd Unit 308 [id number] Ffp 24 Cpd Unit 302 [id number] Output: Urine 1075 Other: Voiding Method Bedside Commode Bedside Commode # Voids 2 - Exam GENERAL EXAM: Pale. Alert, oriented 3, comfortable in no apparent distress. HEAD: Normocephalic. EYES: Normal reaction of pupils, equal size. NOSE: Clear with pink turbinates. THROAT: No erythema or exudates. NECK: No masses, no JVD. CHEST: No chest wall deformity. LUNGS: Equal air entry with no crackles, wheeze, rhonchi or dullness. CVS: S1 and S2 normal with an audible murmur, regular rhythm. ABDOMEN: No hepatosplenomegaly, normal bowel sounds, no guarding or rigidity. SPINE: No scoliosis or deformity SKIN: No rashes CENTRAL NERVOUS SYSTEM: No focal deficits, tone is normal in all 4 extremities. EXTREMITIES: There is no peripheral edema. No clubbing, no cyanosis. Peripheral pulses are intact. - Labs CBC & Chem 7: 10/14/17 04:40 10/14/17 04:40 Labs: Abnormal Lab Results - Last 24 Hours (Table) 10/14/17 10/14/17 10/14/17 Range/Units 04:40 04:40 04:40 RBC 2.95 L (3.80-5.40) m/uL Hgb 7.3 L (11.4-16.0) gm/dL Hct 24.1 L (34.0-46.0) % MCH 24.9 L (25.0-35.0) pg MCHC 30.4 L (31.0-37.0) g/dL RDW 19.3 H (11.5-15.5) % PT 13.8 H (9.0-12.0) sec INR 1.5 H (<1.2) Chloride 108 H (98-107) mmol/L BUN 20 H (7-17) mg/dL Assessment and Plan Assessment: Impression: #1 Acute gastrointestinal bleeding, suspect lower of unclear etiology. Last colonoscopy 4 years ago. Suspect secondary to supra therapeutic INR of 5.5. Current hemoglobin 5.9. The patient received a total of 2 units of packed red blood cells and 4 units of fresh frozen plasma. Hemoglobin 7.3. INR 1.5. She is status post EGD on 10/13/2017 that revealed scattered angiectasia in the proximal body of the stomach and duodenal bulb with no active bleeding, status post argon plasma coagulation. There is also noted antral erosive gastritis and a small hiatal hernia. She remains on Protonix. Her warfarin will be held another 2-3 days per GI recommendations. #2 Severe mitral regurgitation. The plan is for outpatient dental clearance and subsequent mitral valve repair surgery. #3 Coronary artery disease with a 70% stenosis in the proximal to mid circumflex coronary artery. #4 Left subclavian stent in the proximal portion with a critical in-stent restenosis. Plans were for follow-up in the outpatient setting based on the amount of dye utilized during that admission. #5 Cholecystitis, possibly chronic in nature. #6 Hypertension. #7 Hyperlipidemia. #8 Chronic tobacco dependence of greater than 40 years however quit 2 years ago. #8 History of elevated liver enzymes, initial AST 62, ALT 54. Plan: The patient was seen and evaluated by Dr. Rutledge. He remains stable from the pulmonary and critical care standpoint. We'll review PFTs that are scheduled to be done today prior to her discharge in anticipation of mitral valve surgery. There is some question of pulmonary nodule in the left upper lobe difficult to appreciate on x-ray and not commented on x-ray of August 2017. May require a computed tomography scan of the chest at some point. Continue to monitor her hemoglobins. We will continue to follow and make further recommendations based on her clinical status. I, the cosigning physician, have performed a history and physical examination on the patient. Lung sounds are clear. Maintaining good O2 saturations in the 90s on room air. I have discussed the assessment and plan of care with my nurse practitioner, Tiffany Iniguez. I attest to the above note as dictated by her.
[2017-10-14 12:40] VITALS: BP 133/68; PULSE 80
--- NOTE | 2017-10-14 14:04 | US ---
EXAMINATION TYPE: US carotid duplex BILAT DATE OF EXAM: 10/14/2017 COMPARISON: 01/23/2014 CLINICAL HISTORY: pre op cardiac surgery. Pre op cardiac surgery EXAM MEASUREMENTS: RIGHT: Peak Systolic Velocity (PSV) cm/sec ----- Right CCA: 80.1 ----- Right ICA: 175.5 ----- Right ECA: 203.4 ICA/CCA ratio: 2.2 RIGHT: End Diastole cm/sec ----- Right CCA: 19.0 ----- Right ICA: 43.4 ----- Right ECA: 23.9 LEFT: Peak Systolic Velocity (PSV) cm/sec ----- Left CCA: 108.5 ----- Left ICA: 215.8 ----- Left ECA: 161.0 ICA/CCA ratio: 2.0 LEFT: End Diastole cm/sec ----- Left CCA: 31.0 ----- Left ICA: 18.9 ----- Left ECA: 28.9 VERTEBRALS (direction of flow): Right Vertebral: Antegrade Left Vertebral: Retrograde Rhythm: Normal Bilateral intimal thickening, plaque bilateral bulb and proximal ICA and ECA, elevated velocities: ri ght proximal ICA, right mid ICA and right mid ECA, left proximal ICA, left mid ICA and left distal IC A, left bulb, left mid ECA, right ICA/CCA ratio 2.2, left ICA/CCA 2.0, retrograde flow within left ve rtebral. IMPRESSION: 1. Bilateral plaque with findings suggestive of a 50-69% stenosis bilaterally. Correlate with CTA as clinically . 2. Retrograde flow within the left vertebral artery is seen with subclavian steal phenomenon. Criteria for Assigning % of Stenosis / Diameter reduction (Estimation based on the indirect measurements of the internal carotid artery velocities (ICA PSV). 1. Normal (no stenosis)=ICA PSV < 125 cm/s: ratio < 2.0: ICA EDV<40 cm/s. 2. Less than 50% stenosis=ICA PSV < 125 cm/s: ratio < 2.0: ICA EDV<40 cm/s. 3. 50 to 69% stenosis=ICA PSV of 125 to 230 cm/s: ration 2.0 ? 4.0: ICA EDV 40-100 cm/s. 4. Greater than 70% stenosis to near occlusion= ICA PSV > 230 cm/s: ratio > 4.0: ICA EDV > 100 cm/s. 5. Near occlusion= ICA PSV velocities may be low or undetectable: variable ratio and ICA EDV. 6. Total occlusion=unable to detect flow.
--- NOTE | 2017-10-14 14:49 | P.DS ---
Providers Date of admission: 10/12/17 13:59 Attending physician: Francisco Middleton Consults: 10/12/17 13:59 Consult Physician Urgent Consulting Provider: Lisbet Rutledge Consult Reason/Comments: Symptomatic anemia, GI bleed Do you want consulting provider notified?: Already Contacted 10/12/17 16:44 Consult Physician Routine Consulting Provider: Alvaro Escalante Consult Reason/Comments: Chest pain Do you want consulting provider notified?: Yes 10/12/17 16:54 Consult Physician Routine Consulting Provider: Dion Back Consult Reason/Comments: Mitral valve regurgitation, CAD Do you want consulting provider notified?: Yes [facility] Course: Patient was admitted secondary to symptomatic acute upper GI bleed found to have angioectasia in the stomach for which patient underwent argon plasma coagulation. Patient was evaluated by cardiology as well as a cardiac thoracic surgery. Patient will transfer out of ICU patient hemoglobin remained stable at 7.2 received 2 units of blood transfusion patient also found to have small hiatal hernia patient is feeling much better today symptoms resolved completely. Patient continues to be off anticoagulation. 10/14/2017 Patient is doing clinically much better today and gastroenterology is recommending to hold Coumadin for couple more days and dose of Coumadin dose will be decreased from 5 mg to 3 mg due to her supraclavicular but cannot admission. Regarding antiplatelet therapy was still have to verify from gastroenterology. Patient is presently undergoing workup for her valve replacement starting with carotid Doppler, pulmonary function testing and patient will be discharged today to follow up with [facility] thoracic surgery primary care physician and gastroneurology as an outpatient patient will need repeat INR checked in about 6-7 days PHYSICAL EXAMINATION: GENERAL: The patient is alert and oriented x3, not in any acute distress. Well developed, well nourished. HEENT: Pupils are round and equally reacting to light. EOMI. No scleral icterus. No conjunctival pallor. Normocephalic, atraumatic. No pharyngeal erythema. No thyromegaly. CARDIOVASCULAR: S1 and S2 present. No murmurs, rubs, or gallops. PULMONARY: Chest is clear to auscultation, no wheezing or crackles. ABDOMEN: Soft, nontender, nondistended, normoactive bowel sounds. No palpable organomegaly. MUSCULOSKELETAL: No joint swelling or deformity. EXTREMITIES: No cyanosis, clubbing, or pedal edema. NEUROLOGICAL: Gross neurological examination did not reveal any focal deficits. SKIN: No rashes. Assessment and Plan Plan: -Severe symptomatic anemia: Acute blood loss anemia Due to upper GI bleed secondary to angiectasia -Coumadin coagulopathy: -Coronary artery disease aspirin is being held -Atrial fibrillation, paroxysmal atrial fibrillation -Left subclavian stenosis. -Mitral regurgitation: Cardiothoracic surgery eval Patient Condition at Discharge: Serious Plan - Discharge Summary Discharge Rx Participant: Yes New Discharge Prescriptions: New Warfarin [Coumadin] 3 mg PO DAILY #30 tab Continue Amiodarone [Cordarone] 200 mg PO DAILY Discontinued Enalapril/Hydrochlorothiazide [Enalapril-Hctz 10-25 mg Tablet] 1 tab PO HS Warfarin [Coumadin] 5 mg PO DAILY@1800 Naproxen 500 mg PO DAILY PRN PRN Reason: Pain No Action Escitalopram [Lexapro] 10 mg PO HS Aspirin EC [Ecotrin Low Dose] 162 mg PO HS Atorvastatin [Lipitor] 20 mg PO DAILY #30 tab Furosemide [Lasix] 20 mg PO DAILY #30 tab Metoprolol Tartrate [Lopressor] 12.5 mg PO BID Discharge Medication List Escitalopram [Lexapro] 10 mg PO HS 02/01/14 [History] Aspirin EC [Ecotrin Low Dose] 162 mg PO HS 02/19/16 [History] Atorvastatin [Lipitor] 20 mg PO DAILY #30 tab 09/04/17 [Rx] Furosemide [Lasix] 20 mg PO DAILY #30 tab 09/04/17 [Rx] Metoprolol Tartrate [Lopressor] 12.5 mg PO BID 09/17/17 [History] Amiodarone [Cordarone] 200 mg PO DAILY 10/12/17 [History] Warfarin [Coumadin] 3 mg PO DAILY #30 tab 10/14/17 [Rx] Follow up Appointment(s)/Referral(s): Dion Back MD [STAFF PHYSICIAN] - 2 Weeks (Please make appointment once dental clearance is obtained.) Elton Madden DO [Primary Care Provider] - 10/21/17 1:20 pm Patient Instructions/Handouts: Gastritis (DC), Anemia (DC)
--- NOTE | 2017-10-14 14:52 | P.PN ---
Subjective Progress Note Date: 10/14/17 This is a very pleasant 67-year-old female patient who has a history of atrial fibrillation, hyperlipidemia, hypertension, cholelithiasis, left subclavian stenosis with previous stent placement and subsequent reocclusion, cardiac catheterization performed 09/29/2017 revealed coronary artery disease with 70% stenosis in the proximal to mid circumflex and severe mitral regurgitation pending cardiothoracic surgical consultation and surgery. She has been on warfarin and Ecotrin 162 mg daily. She does have a history of chronic tobacco dependence however quit 2 years ago. She presented here to the emergency room with complaints of fatigue and worsening shortness of breath with minimal exertion. She's also had ongoing issues with left-sided chest discomfort radiating down her left arm. troponins negative. ProBNP 1160. She was found to be supratherapeutic on INR of 5.5 and a hemoglobin of 5.9 with stool occult blood positive. She had noticed some black tarry stool at home as well. Last colonoscopy 4 years ago. She is seen in the emergency room in consultation. She is awake and alert in no acute distress. She has remained hemodynamically stable. She is maintaining good O2 saturations up to 100% on 2 L/m per nasal cannula. Her chest x-ray reveals no acute pulmonary process. There is a noted left upper lobe pulmonary nodule. She's been afebrile. No tachypnea. Patient states she did have an episode of rapid heart beating while in the intensive care unit, I do not have a monitor strip which shows this, we will attempt to get up. She states that she was in A. fib her brief period of time and converted to normal sinus rhythm. She continues to be in a normal sinus rhythm this morning. Hemoglobin today 7.3, INR 1.5. Objective - Vital Signs Vital signs: Vital Signs Temp 97.1 F L 10/14/17 08:00 Pulse 80 10/14/17 12:00 Resp 18 10/14/17 06:53 BP 133/68 10/14/17 12:00 Pulse Ox 99 10/14/17 12:00 Intake & Output 10/13/17 10/14/17 10/14/17 18:59 06:59 18:59 Intake Total 2220 50 360 Output Total 1075 Balance 1145 50 360 Weight 97.3 kg Intake: IV 750 50 Sodium Chloride 0.9% 1, 450 50 000 ml @ 50 mls/hr IV . Q20H [facility] Rx#:[id number] Oral 250 360 Blood Product 1220 Ffp 24 Cpd Unit 308 [id number] Ffp 24 Cpd Unit 302 [id number] Output: Urine 1075 Other: Voiding Method Bedside Commode Bedside Commode # Voids 2 - Exam GENERAL EXAM: Pale. Alert, oriented 3, comfortable in no apparent distress. HEAD: Normocephalic. EYES: Normal reaction of pupils, equal size. NOSE: Clear with pink turbinates. THROAT: No erythema or exudates. NECK: No masses, no JVD. CHEST: No chest wall deformity. LUNGS: Equal air entry with no crackles, wheeze, rhonchi or dullness. CVS: S1 and S2 normal with an audible murmur, regular rhythm. ABDOMEN: No hepatosplenomegaly, normal bowel sounds, no guarding or rigidity. SPINE: No scoliosis or deformity SKIN: No rashes CENTRAL NERVOUS SYSTEM: No focal deficits, tone is normal in all 4 extremities. EXTREMITIES: There is no peripheral edema. No clubbing, no cyanosis. Peripheral pulses are intact. - Labs CBC & Chem 7: 10/14/17 04:40 10/14/17 04:40 Labs: Abnormal Lab Results - Last 24 Hours (Table) 10/14/17 10/14/17 10/14/17 Range/Units 04:40 04:40 04:40 RBC 2.95 L (3.80-5.40) m/uL Hgb 7.3 L (11.4-16.0) gm/dL Hct 24.1 L (34.0-46.0) % MCH 24.9 L (25.0-35.0) pg MCHC 30.4 L (31.0-37.0) g/dL RDW 19.3 H (11.5-15.5) % PT 13.8 H (9.0-12.0) sec INR 1.5 H (<1.2) Chloride 108 H (98-107) mmol/L BUN 20 H (7-17) mg/dL Assessment and Plan Plan: Impression: #1 Acute gastrointestinal bleeding, suspect lower of unclear etiology. Last colonoscopy 4 years ago. Suspect secondary to supra therapeutic INR of 5.5. Current hemoglobin 5.9. The patient received a total of 2 units of packed red blood cells and 4 units of fresh frozen plasma. Hemoglobin 7.3. INR 1.5. She is status post EGD on 10/13/2017 that revealed scattered angiectasia in the proximal body of the stomach and duodenal bulb with no active bleeding, status post argon plasma coagulation. There is also noted antral erosive gastritis and a small hiatal hernia. She remains on Protonix. Her warfarin will be held another 2-3 days per GI recommendations. #2 Severe mitral regurgitation. The plan is for outpatient dental clearance and subsequent mitral valve repair surgery. #3 Coronary artery disease with a 70% stenosis in the proximal to mid circumflex coronary artery. #4 Left subclavian stent in the proximal portion with a critical in-stent restenosis. Plans were for follow-up in the outpatient setting based on the amount of dye utilized during that admission. #5 Cholecystitis, possibly chronic in nature. #6 Hypertension. #7 Hyperlipidemia. #8 Chronic tobacco dependence of greater than 40 years however quit 2 years ago. #8 History of elevated liver enzymes, initial AST 62, ALT 54. Plan From cardiology's perspective, we will recommend to continue the patient on her current medications. His hemoglobin remains stable, she will be discharged home , mitral valve surgery as an outpatient. DNP note has been reviewed, I agree with a documented findings and plan of care. Patient was seen and examined.
== END 2017-10-14 15:49 | disposition home or self-care (01) | DRG 378 ==
LOC: EC 11:18 → 6ICU 13:59 → 6SEL 10-14 06:10
PROVIDERS: ADMIT Internal Medicine; ATTEND Internal Medicine
PROC: 30233K1 Transfusion of Nonautologous Frozen Plasma into Peripheral Vein, Percutaneous Approach (ICD-10-PCS; principal; 2017-10-12)
PROC: 30233N1 Transfusion of Nonautologous Red Blood Cells into Peripheral Vein, Percutaneous Approach (ICD-10-PCS; 2017-10-12)
PROC: 0W3P8ZZ Control Bleeding in Gastrointestinal Tract, Via Natural or Artificial Opening Endoscopic (ICD-10-PCS; 2017-10-13)
DX: K55.21 Angiodysplasia of colon with hemorrhage (principal); D68.9 Coagulation defect, unspecified; I48.0 Paroxysmal atrial fibrillation; D62 Acute posthemorrhagic anemia; K81.9 Cholecystitis, unspecified; T82.855A Stenosis of coronary artery stent, initial encounter; I34.0 Nonrheumatic mitral (valve) insufficiency; I25.10 Atherosclerotic heart disease of native coronary artery without angina pectoris; I70.8 Atherosclerosis of other arteries; E78.5 Hyperlipidemia, unspecified; E66.9 Obesity, unspecified; I77.1 Stricture of artery; K29.60 Other gastritis without bleeding; K44.9 Diaphragmatic hernia without obstruction or gangrene; T45.515A Adverse effect of anticoagulants, initial encounter; R91.1 Solitary pulmonary nodule; I10 Essential (primary) hypertension; Z87.891 Personal history of nicotine dependence; Z82.49 Family history of ischemic heart disease and other diseases of the circulatory system; Z79.899 Other long term (current) drug therapy; Z79.82 Long term (current) use of aspirin; Z79.891 Long term (current) use of opiate analgesic; Z95.5 Presence of coronary angioplasty implant and graft; Z79.01 Long term (current) use of anticoagulants; Z90.89 Acquired absence of other organs
CPT/HCPCS: 36415; 43255; 71045; 71046; 80048; 80053; 82272; 82550; 82553; 83735; 83880; 84100; 84484; 85025; 85027; 85610; 85730; 86850; 86900; 86901; 86920; 93005; 93880; 94150; 96374; 99291

== ENCOUNTER → 2017-11-23 | Outpatient (CLI) | payer MEDICARE ==
--- NOTE | 2017-11-23 09:11 | CT ---
EXAMINATION TYPE: CT chest wo con DATE OF EXAM: 11/23/2017 COMPARISON: 09/01/2017 HISTORY: Mitral valve insufficiency, coronary artery disease CT DLP: 503 mGycm. Automated Exposure Control for Dose Reduction was Utilized. TECHNIQUE: CT scan of the thorax is performed without IV contrast. FINDINGS: LUNGS: There is a lingular 7 mm solid-appearing pulmonary nodule on series 4 image 27. Scattered grou ndglass opacities within the anterior right upper lobe likely related to atelectasis. No additional p ulmonary nodules or masses. No focal consolidation, pleural effusion or pneumothorax. Tracheal bronch ial tree is patent. MEDIASTINUM: Lack of IV contrast is noted to limit evaluation for mediastinal and especially hilar ad enopathy. There are no definitive greater than 1 cm hilar or mediastinal lymph nodes. No cardiomega ly or pericardial effusion is seen. Severe three-vessel coronary calcifications are seen. The left at rium is enlarged. OTHER: Moderate hiatal hernia is incidentally noted. The liver has a nodular contour although no foca l masses were seen on the exam of 09/01/2017. Mild multilevel degenerative changes of the thoracic sp ine are noted. IMPRESSION: 1. 7 mm lingular noncalcified pulmonary nodule. PET CT could be considered or repeat CT in 6 months t o evaluate for interval growth. 2. Severe three-vessel coronary calcifications. Coronary artery calcium scoring CT could be performed for risk stratification. 3. Left atrial dilatation concordant with the patient's history of mitral valve insufficiency. 4. Findings suggesting hepatic cirrhosis. Correlate with LFTs.
[2017-11-23 09:41] LABS: Anisocytosis Slight; HCT 27.7 % (34.0-46.0); HGB 7.6 gm/dL (11.4-16.0); Hypochromasia Marked; MCH 21.5 pg (25.0-35.0); MCHC 27.5 g/dL (31.0-37.0); MCV 78.2 fL (80.0-100.0); Mean Platelet Volume 6.8; Microcytosis Slight; Platelet Count 402 k/uL (150-450); Poikilocytosis Slight; RBC 3.55 m/uL (3.80-5.40); RDW 19.1 % (11.5-15.5); WBC 8.3 k/uL (3.8-10.6)
[2017-11-23 09:55] LABS: INR 1.1 (<1.2); Partial Thromboplastin Time 22.3 sec (22.0-30.0); Prothrombin Time 10.9 sec (9.0-12.0)
[2017-11-23 09:59] LABS: ALT 24 U/L (9-52); AST 47 U/L (14-36); Albumin 3.5 g/dL (3.5-5.0); Alkaline Phosphatase 79 U/L (38-126); Anion Gap 9 mmol/L; Blood Urea Nitrogen 19 mg/dL (7-17); Calcium 9.1 mg/dL (8.4-10.2); Carbon Dioxide 28 mmol/L (22-30); Chloride 106 mmol/L (98-107); Cholesterol 149 mg/dL (<200); Glucose 95 mg/dL (74-99); HDL Cholesterol 70 mg/dL (40-60); LDL Cholesterol,Calculated 64 mg/dL (0-99); Magnesium 1.9 mg/dL (1.6-2.3); Potassium 4.5 mmol/L (3.5-5.1); Sodium 143 mmol/L (137-145); Total Bilirubin 0.3 mg/dL (0.2-1.3); Triglycerides 75 mg/dL (<150)
[2017-11-23 10:06] LABS: Appearance,Urine Clear (Clear); Bacteria,Urine Rare /hpf; Bilirubin,Urine Negative (Negative); Blood,Urine Negative (Negative); Color,Urine Yellow; Glucose,Urine (UA) Negative (Negative); Hyaline Casts,Urine 3 /lpf (0-2); Ketones,Urine Negative (Negative); Leukocyte Esterase,Urine Trace (Negative); Mucus,Urine Occasional /hpf; Nitrite,Urine Negative (Negative); PH, Urine 5.5 (5.0-8.0); Protein,Urine Trace (Negative); RBC,Urine 1 /hpf (0-5); Specific Gravity,Urine 1.019 (1.001-1.035); Squamous Epithelial Cell,Urine 5 /hpf (0-4); WBC,Urine 1 /hpf (0-5)
[2017-11-23 18:31] LABS: Hepatitis A Antibody IgM Non-Reactive (Non-Reactive); Hepatitis B Core IgM Non-Reactive (Non-Reactive)
[2017-11-23 19:09] LABS: Hemoglobin A1C 5.2 % (4.0-6.0)
--- NOTE | 2017-11-24 10:51 | P.VSCSTY ---
Greater Saphenous Vein Mapping This is bilateral lower extremity greater saphenous vein mapping. Date of service 11/23/2017 Vein quality and ultrasound appearance no wall thickening or intraluminal thrombus seen. Vein size groin right 4 x 3.8 groin left 8.3 x 6.8 High thigh right 4.3 x 3.8 high thigh left 5.1 x 3.9 Mid thigh right 3.6 x 3.0 mid thigh left 3.7 x 3.1 Above-knee right 3.8 x 3.0 above- knee left to 5.2 x 3.5 Below knee right 3.1 x 2.2 below-knee left 2.8 x 2.8 Mid calf right 2.8 x 2.6 mid calf left 2.8 x 2.3 Ankle right 2.7 x 2.4 ankle left 2.8 x 2.8 Impression usable bilateral greater saphenous vein..
--- NOTE | 2017-11-24 17:48 | P.PN ---
Progress Note - Text Progress Note Date: 11/23/17 5 m walk test completed: Time 1: 4.05, time 2: 4.15 seconds, time 3: 3.50 seconds.
== END | disposition home or self-care (01) ==
LOC: RADUSMAIN 07:43
PROVIDERS: ATTEND Surgery
DX: Z01.810 Encounter for preprocedural cardiovascular examination (principal); R91.1 Solitary pulmonary nodule; I25.10 Atherosclerotic heart disease of native coronary artery without angina pectoris; I51.7 Cardiomegaly
CPT/HCPCS: 36415; 71250; 80053; 80061; 80074; 81001; 83036; 83735; 83880; 84443; 84484; 85027; 85610; 85730; 87070; 87086; 93005; 93970

== ENCOUNTER 2017-11-25 05:36 | Inpatient (IN) | payer MEDICARE ==
[~2017-11-25 05:36] MED LIST changes: +ALBUMIN HUMAN 25% 50 ML IV ONE; +ALBUMIN HUMAN 5% 500 ML IVPB ONE; -ALPRAZolam 0.25 MG TAB PO PRN; -ALPRAZolam 0.5 MG TAB PO PRN; +ASPIRIN 325 MG TAB PO ONE; -ASPIRIN 325 MG TAB PO STA; +ATORVASTATIN 10 MG TAB PO ONE; -ATORVASTATIN 80 MG TAB PO STA; +CALCIUM CHLORIDE 100 MG/ML 10 ML SYRINGE IV ONE; +CHLORHEXIDINE GLUCONATE 15 ML CUP MUCOUS MEM ONE; +CLEVIDIPINE BUTYRATE 25 MG in EMPTY BAG 1 BAG IV ONE; +DEXTROSE 5% IN WATER 1,000 ML with POTASSIUM CHLORIDE 110 MEQ, MAGNESIUM SULFATE 16 MEQ... IV ONE; +DEXTROSE 5% IN WATER 1,000 ML with POTASSIUM CHLORIDE 25 MEQ, SODIUM CHLORIDE 2.5MEQ/ML... IV ONE; +HEPARIN SODIUM 1,000 UN/ML (10ML VL) IV ONE; +HEPARIN SODIUM,PORCINE 5,000 UNIT in SODIUM CHLORIDE 0.9% 500 ML IV ONE; +INSULIN REGULAR 100 UNIT in SODIUM CHLORIDE 0.9% 100 ML IV ONE; +LACTATED RINGERS 1,000 ML IV ONE; +MAGNESIUM SULFATE MG 500 MG/ML VIAL IV ONE; +MANNITOL 25% 12.5 GM/50 ML VIAL IV ONE; +METOPROLOL TARTRATE 12.5 MG TAB PO ONE; +MUPIROCIN 2% OINT 22 GM TUBE NASAL ONE; +NITROGLYCERIN SL TABS 0.4 MG TAB SUBLINGUAL ONE; -NITROGLYCERIN SL TABS 0.4 MG TAB SUBLINGUAL PRN; +NITROGLYCERIN-D5W PMX 25 MG/250 ML BTL IV ONE; +NITROGLYCERIN-D5W PMX 50 MG in DEXTROSE/WATER 1 250ML.BAG IV ONE; +NOREPINEPHRIN 4 MG-0.9% NS PMX 4 MG/250 ML ML IV ONE; +PAPAVERINE 360 MG in SODIUM CHLORIDE 0.9% 90 ML IV ONE; +PHENYLEPHRINE 40 MG in SODIUM CHLORIDE 0.9% 250 ML IV ONE; +PHENYLEPHRINE-0.9% NACL SYG 1 MG/10 ML SYRINGE IV ONE; +PROPOFOL 1,000 MG/100 ML VIAL IV ONE; +PROTAMINE SULFATE 10 MG/ML 25 ML VIAL IV ONE; +PROTAMINE SULFATE 250 MG in EMPTY BAG 1 BAG IV ONE; +SODIUM BICARB 8.4% 50 ML SYR (1 MEQ/ML) IV ONE; +SODIUM CHLORIDE 0.9% 1,000 ML IV ONE; -SODIUM CHLORIDE 0.9% 1,000 ML in EMPTY BAG 1 BAG IV ONE; +TRANEXAMIC ACID 2,000 MG in SODIUM CHLORIDE 0.9% 180 ML IV ONE; +ceFAZolin 1,000 MG in SODIUM CHLORIDE 0.9% IRRIGATIO 1,000 ML IRRIGATION ONE; +ceFAZolin 2,000 MG in SODIUM CHLORIDE 0.9% 30 ML IVPB ONE
[2017-11-25 06:28] LABS: Glucose,Whole Blood 103 mg/dL (75-99)
[2017-11-25] MEDS ORDERED: fentaNYL (PF) 50 MCG/ML 50 ML VIAL ONE (08:10)
[2017-11-25] MEDS ORDERED: SODIUM CHLORIDE 0.9% IRRIG 1,000 ML BTL IRRIGATION ONE (08:10)
[2017-11-25] MEDS ORDERED: HEPARIN SODIUM,PORCINE 5,000 UNIT/ML 1 ML VIAL ONE (08:10)
[2017-11-25] MEDS ORDERED: VECURONIUM 10 MG VIAL IV ONE (08:10)
[2017-11-25] MEDS ORDERED: SODIUM CHLORIDE 0.9% 250 ML BAG ONE (08:10)
[2017-11-25] MEDS ORDERED: PROTAMINE SULFATE 10 MG/ML 25 ML VIAL IV ONE (08:10)
[2017-11-25] MEDS ORDERED: CALCIUM CHLORIDE 100 MG/ML 10 ML SYRINGE ONE (08:10)
[2017-11-25] MEDS ORDERED: LIDOCAINE 2% SYG (PF) 100 MG/5 ML ONE (08:10)
[2017-11-25] MEDS ORDERED: MIDAZOLAM 2 MG/2 ML VIAL ONE (08:10)
[2017-11-25] MEDS ORDERED: HEPARIN SODIUM,PORCINE 10,000 UNIT/ML 1 ML VIAL ONE (08:10)
[2017-11-25] MEDS ORDERED: ELECTROLYTE-R (PH 7.4) 1,000 ML IV.SOLN IV ONE (08:10)
[2017-11-25] MEDS ORDERED: PROPOFOL 10 MG/ML 20 ML VIAL IV ONE (08:10)
[2017-11-25] MEDS ORDERED: TRANEXAMIC ACID 1,000 MG/10 ML VIAL ONE (08:10)
[2017-11-25] MEDS ORDERED: SUCCINYLCHOLINE CHLORIDE 100 MG/5 ML SYR IV ONE (08:10)
[2017-11-25] MEDS ORDERED: METHYLENE BLUE 10 MG/ML (10 ML VIAL) MISCELLANE ONE (12:00)
[2017-11-25 15:05] LABS: Anisocytosis Slight; Basophils % (A) 0 %; Eosinophils # (A) 0.2 k/uL (0-0.7); Eosinophils % (A) 1 %; HCT 27.3 % (34.0-46.0); HGB 8.3 gm/dL (11.4-16.0); Hypochromasia Marked; Lymphocytes % (A) 7 %; MCH 24.9 pg (25.0-35.0); MCHC 30.4 g/dL (31.0-37.0); MCV 82.1 fL (80.0-100.0); Mean Platelet Volume 7.9; Microcytosis Slight; Monocytes # (A) 0.7 k/uL (0-1.0); Monocytes % (A) 5 %; Neutrophils # (A) 12.4 k/uL (1.3-7.7); Neutrophils % (A) 86 %; Poikilocytosis Marked; RBC 3.32 m/uL (3.80-5.40); WBC 14.4 k/uL (3.8-10.6)
[2017-11-25 15:12] LABS: Platelet Count 172 k/uL (150-450)
[2017-11-25 15:14] LABS: INR 1.3 (<1.2); Partial Thromboplastin Time 34.6 sec (22.0-30.0); Prothrombin Time 12.5 sec (9.0-12.0)
[2017-11-25] MEDS ORDERED: BENZOCAINE/MENTHOL LOZENG 1 EACH LOZENGE MUCOUS MEM PRN (19:03)
[2017-11-25] MEDS ORDERED: MORPHINE SULFATE 4 MG/ML SYRINGE IVP PRN (19:03)
[2017-11-25] MEDS ORDERED: Magnesium Replacement Protocol 1 EACH MISC MISCELLANE PRN (19:03)
[2017-11-25] MEDS ORDERED: NOREPINEPHRINE 4 MG in SODIUM CHLORIDE 0.9% 250 ML IV SCH (19:03)
[2017-11-25] MEDS ORDERED: CALCIUM GLUCONATE 2,000 MG in SODIUM CHLORIDE 0.9% 100 ML IVPB PRN (19:03)
[2017-11-25] MEDS ORDERED: NITROGLYCERIN-D5W PMX 50 MG in DEXTROSE/WATER 1 250ML.BAG IV SCH (19:03)
[2017-11-25] MEDS ORDERED: Potassium Replacement Protocol 1 EACH MISC MISCELLANE PRN (19:03)
[2017-11-25] MEDS ORDERED: LACTATED RINGERS 1,000 ML IV SCH (19:03)
[2017-11-25] MEDS ORDERED: Phosphorus Replacement Protoco 1 EACH MISC MISCELLANE PRN (19:03)
[2017-11-25] MEDS ORDERED: CLEVIDIPINE BUTYRATE 25 MG/50 ML VIAL IV ONE (19:09)
[2017-11-25 19:19] LABS: Glucose,Whole Blood 159 mg/dL (75-99)
[2017-11-25 19:31] LABS: Anisocytosis Slight; Basophils % (A) 0 %; Eosinophils % (A) 0 %; HCT 33.2 % (34.0-46.0); HGB 10.7 gm/dL (11.4-16.0); Hypochromasia Marked; Lymphocytes # (A) 0.7 k/uL (1.0-4.8); Lymphocytes % (A) 6 %; MCHC 32.3 g/dL (31.0-37.0); MCV 83.5 fL (80.0-100.0); Mean Platelet Volume 8.3; Monocytes # (A) 0.9 k/uL (0-1.0); Monocytes % (A) 8 %; Neutrophils # (A) 10.3 k/uL (1.3-7.7); Neutrophils % (A) 84 %; Poikilocytosis Marked; RBC 3.97 m/uL (3.80-5.40); RDW 16.7 % (11.5-15.5); WBC 12.2 k/uL (3.8-10.6)
[2017-11-25 19:33] LABS: INR 1.3 (<1.2); Partial Thromboplastin Time 29.6 sec (22.0-30.0); Prothrombin Time 12.6 sec (9.0-12.0)
[2017-11-25 19:36] LABS: Ionized Calcium 4.9 mg/dL (4.5-5.3)
[2017-11-25 19:40] LABS: ABG Base Excess -2.9 mmol/L; ABG HCO3 24 mmol/L (21-25); ABG PCO2 50 mmHg (35-45); ABG PH 7.29 (7.35-7.45); ABG PO2 209 mmHg (83-108); ABG TCO2 25 mmol/L (19-24)
--- NOTE | 2017-11-25 19:41 | XR ---
EXAMINATION: XR chest 1V portable DATE AND TIME: 11/25/2017 7:17 PM ORDERING PROVIDER: Parris Dawkins CLINICAL INDICATION: Post Operative Cardiac Surgery TECHNIQUE: Portable AP supine COMPARISON: 10/14/2017 DESCRIPTION: Endotracheal tube tip superimposed over the mid trachea. Sternal sutures, mediastinal drains, left ch est tube and EKG leads are noted, in addition to a cardiac valve prosthesis. Left subclavian stent no alee. There is no pneumothorax or other abnormal gas collections evident, but supine radiography cannot fir mly exclude abnormal gas collections. There is no evidence of pleural effusion. Moderate cardiac silhouette enlargement noted. The lungs are primarily clear and well expanded bilaterally. Skeletal structures and soft tissues are without acute findings. IMPRESSION: 1. POSTOPERATIVE OPEN HEART SURGERY. 2. NO ACUTE PULMONARY OR PLEURAL PROCESS EVIDENT - SUPINE CXR.
[2017-11-25] MEDS: IPRATROPIUM-ALBUTEROL 3 ML NEB INHALATION SCH (19:45)
[2017-11-25 19:46] LABS: Platelet Count 88 k/uL (150-450)
[2017-11-25 19:47] LABS: ALT 36 U/L (9-52); AST 92 U/L (14-36); Albumin 2.2 g/dL (3.5-5.0); Alkaline Phosphatase 37 U/L (38-126); Anion Gap 9 mmol/L; Blood Urea Nitrogen 17 mg/dL (7-17); Calcium 8.2 mg/dL (8.4-10.2); Carbon Dioxide 27 mmol/L (22-30); Chloride 110 mmol/L (98-107); Glucose 139 mg/dL (74-99); Magnesium 2.4 mg/dL (1.6-2.3); Potassium 4.2 mmol/L (3.5-5.1); Sodium 146 mmol/L (137-145); Total Bilirubin 1.3 mg/dL (0.2-1.3)
[2017-11-25] MEDS: INSULIN REGULAR 100 UNIT in SODIUM CHLORIDE 0.9% 100 ML IV SCH (20:00)
[2017-11-25] MEDS: PROPOFOL 1,000 MG in EMPTY BAG 1 BAG IV SCH (20:00)
[2017-11-25] MEDS: CLEVIDIPINE BUTYRATE 25 MG in EMPTY BAG 1 BAG IV SCH (20:00)
[2017-11-25] MEDS: ceFAZolin IN SWFI 2 GM/20 ML SYRINGE IVP SCH (20:00)
[2017-11-25 20:01] LABS: Glucose,Whole Blood 147 mg/dL (75-99)
[2017-11-25] MEDS ORDERED: SODIUM BICARB 8.4% 50 ML SYR (1 MEQ/ML) IV STA (20:16)
[2017-11-25] MEDS ORDERED: SODIUM BICARB 8.4% 50 ML SYR (1 MEQ/ML) ONE (20:18)
[2017-11-25] MEDS: ALBUMIN HUMAN 5% 250 ML in EMPTY BAG 1 BAG IVPB PRN ×3 (20:30→22:15)
[2017-11-25 21:06] LABS: Glucose,Whole Blood 149 mg/dL (75-99)
[2017-11-25] MEDS: ACETAMINOPHEN IV (For NPO) 1,000 MG in EMPTY BAG 1 BAG IVPB SCH (21:53)
[2017-11-25 22:10] LABS: ABG Base Excess 3.4 mmol/L; ABG HCO3 28 mmol/L (21-25); ABG PCO2 45 mmHg (35-45); ABG PH 7.41 (7.35-7.45); ABG PO2 144 mmHg (83-108); ABG TCO2 30 mmol/L (19-24)
[2017-11-25 22:11] LABS: Glucose,Whole Blood 143 mg/dL (75-99)
[2017-11-25] MEDS: MUPIROCIN 2% OINT 22 GM TUBE NASAL SCH (22:20)
[2017-11-25] MEDS: MILRINONE-D5W PMX 20 MG in DEXTROSE/WATER 1 100ML.BAG IV SCH (22:23)
[2017-11-25 23:09] LABS: Glucose,Whole Blood 144 mg/dL (75-99)
[2017-11-25 23:16] LABS: Anisocytosis Slight; HCT 23.7 % (34.0-46.0); Hypochromasia Marked; MCH 26.6 pg (25.0-35.0); MCHC 32.3 g/dL (31.0-37.0); MCV 82.4 fL (80.0-100.0); Poikilocytosis Marked; RBC 2.88 m/uL (3.80-5.40); RDW 16.7 % (11.5-15.5); WBC 8.5 k/uL (3.8-10.6)
[2017-11-25 23:18] LABS: Platelet Count 78 k/uL (150-450)
[2017-11-25 23:19] LABS: HGB 7.7 gm/dL (11.4-16.0)
--- NOTE | 2017-11-25 23:59 | OP ---
OPERATIVE REPORT DATE OF SURGERY: 11/25/2017 PREOPERATIVE DIAGNOSES: 1. Severe mitral regurgitation. 2. Coronary artery disease. 3. Atrial fibrillation. POSTOPERATIVE DIAGNOSES: 1. Severe mitral regurgitation. 2. Coronary artery disease. 3. Atrial fibrillation. PROCEDURES: 1. Mitral valve replacement using 25 mm Ribera bioprosthetic tissue valve. 2. Coronary artery bypass grafting x1 (saphenous vein graft to obtuse marginal artery). 3. Modified MAZE procedure. 4. Epiaortic ultrasound. 5. Transesophageal echocardiogram. 6. Ligation of left atrial appendage using 40 mm AtriClip. 7. Endoscopic harvest of greater saphenous vein SURGEON: Dion Back. ASSISTANTS: 1. Kwaku Mcgraw MD. 2. MIKAYLA Kang. 3. Cruz Schofield Nurse Practitioner. ANESTHESIA: General. SPECIMEN: Mitral valve leaflet. COMPLICATIONS: None. INDICATION: The patient is a 67-year-old female with a history of multiple medical problems, including recently diagnosed atrial fibrillation, currently on Coumadin, along with a recent hospitalization for GI bleed, who reports worsening shortness of breath with activity. Workup did reveal severe mitral regurgitation along with single- vessel coronary artery disease. Mitral valve repair/replacement along with coronary artery bypass and Modified Maze procedure were recommended. The risks, benefits and alternatives to these procedures were discussed with the patient and her daughter. All questions were answered. Consent was obtained. Of note, the patient's starting Hb was 7.6 and has been stable since the time of her GI bleed. 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 The valve leaflets and subvalvular apparatus were all severely thickened. The obtuse marginal artery measured 1.3 mm. The patient's tissue was quite fatty and friable. PROCEDURE IN DETAIL: The patient was taken to the operating room and placed supine on the operating room table. After the induction of general anesthesia she was prepped and draped in the usual sterile fashion. Preoperative transesophageal echocardiogram revealed a preserved ejection fraction along with severe mitral regurgitation. 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 The posterior leaflet seemed somewhat restricted. A median sternotomy was performed. Despite holding her coumadin, the patient was quite oozy at the time of incision. A pericardial cradle was created. Simultaneously, greater saphenous vein was harvested from the lower extremity using endoscopic technique. All branches were tied. The vein was a good conduit. The ascending aorta was palpated. There was plaque noted at the takeoff of the innominate artery. The remainder of the ascending aorta appeared to be relatively free of disease. Epiaortic ultrasound was then performed. It confirmed plaque at the takeoff of the innominate artery. However, there was only some mild atheromatous disease noted throughout the ascending aorta. Intravenous heparin was administered. An arterial cannula was placed in the distal ascending aorta in a soft spot as determined by epiaortic ultrasound. Bicaval cannulation was utilized. A right- angled venous cannula was placed through the SVC. A straight venous cannula was placed through the right atrial appendage and directed into the IVC. Both antegrade and retrograde catheters were placed as well. The patient was then placed on cardiopulmonary bypass with good decompression of the heart. The patient did require transfusion of PRBCs to initiate bypass given her presenting anemia . The patient's heart was quite large and occupied a fair amount of space in the mediastinum, given her overall body habitus. It was extremely fatty and friable in nature. At this point, both the SVC and IVC were dissected free and umbilical tapes were passed around each vessel. We began by performing the Maze procedure. Pulmonary vein isolation was performed to both the right-sided pulmonary veins as well as the left-sided pulmonary veins. The ligament of Jack was divided on the left side. The left atrial appendage was incised and a radiofrequency ablation probe was passed through the left atrial appendage into the left superior pulmonary vein and a lesion was achieved. The left atrial appendage was then measured, and a 40 mm AtriClip was placed across the base. The defect in the atrial appendage was sewn shut with a pledgeted 4-0 Prolene suture. Of note, the tissue surrounding the left atrial appendage was quite friable and denuded easily off the surface of the heart. The aortic cross-clamp was applied. Cold blood potassium cardioplegia was delivered to achieve arrest of the heart. Cardioplegia was delivered every 15 to 20 minutes while the patient remained under cross- clamp. I began by performing the bypass. The lateral wall was inspected. The obtuse marginal artery was identified. A small arteriotomy was created. This vessel accepted a 1 mm probe. Using saphenous vein in a reverse fashion, an end-to-side anastomosis created. This was performed using running 7-0 Prolene suture. The graft was hemostatic and had good flow. Now attention was turned to the mitral valve. Dissection was taken along Sondergaard's groove. The left atrium was entered using a scalpel. The atriotomy was extended both superiorly over the dome of the left atrium and inferiorly posterior to the IVC, taking care to avoid entering the right atrium. At this point, the inferior wall of the heart was identified. Using cryotherapy, a lesion was placed near the coronary sinus,just beyond the posterior lateral branch of the right coronary artery, taking care to avoid the coronary artery itself. Additional lesion sets using radiofrequency ablation were then performed within the left atrium itself. Both a roof lesion and floor lesion were performed to complete the box. Cryotherapy was then performed from within the atrium to connect the mitral annulus. Attention was then turned to the mitral valve itself. The leaflet was quite thickened, as was the subvalvular apparatus. 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 I did not feel it would be repairable. For this reason, I chose to replace it. Given the patient's history of recent GI bleed and preference not to take Coumadin, I did choose a bioprosthetic valve. Visualization was somewhat difficult. The anterior leaflet was incised just proximal to the anulus. Pledgeted sutures were placed circumferentially along the anterior anulus with the pledgets on the atrial side. The majority of the subvalvular apparatus was removed to the papillary head. Sutures continued circumferentially along the posterior anulus. The posterior leaflet was not removed but incorporated into the stitches. The orifice was sized and a 25 mm Ribera valve was chosen. The stitches were passed through the sewing ring and the valve was lowered down into the left atrium. It seated nicely. The sutures were tied using Cor-Knot. Inspection after completion of this procedure revealed that the leaflets moved freely. The atriotomy was then closed in 2 layers. The proximal anastomosis was performed to the ascending aorta in an end-to-side fashion using running 6-0 Prolene suture. One liter of warm blood was delivered in retrograde fashion. Lidocaine and magnesium were administered as well. Standard de-airing procedures were performed. The aorta cross-clamp was removed. Temporary atrial and ventricular pacing wires were placed and brought through the skin. The retrograde catheter was removed. Follow-up transesophageal echocardiogram at this point did not reveal any significant intracardiac air. The patient was then weaned off cardiopulmonary bypass. She without difficulty. NILDA was again observed and the mitral valve appeared to be working well without any significant perivalvular leak. There was no intracardiac air. Protamine was administered. At this point, the patient had a fair amount of persistent bleeding noted around the heart. Given the mitral valve replacement, I was reluctant to completely lift the heart up to look behind it. The distal anastomosis as well as the vein graft appeared to be intact. All the remaining surgical sites, including the atriotomy site, appeared to be intact. The patient did have diffuse bleeding, though, which continued to well up. Multiple transfusions were then performed to help alleviate the coagulopathy. Unfortunately she continued to bleed. At this point I did not think it was safe to continue inspecting the heart while it was beating, so I replaced the cannulas, re- administered intravenous heparin, and went back on bypass. There did appear to be a rent in the soft tissue beyond the left atrial appendage but remote from any surgical sites. Persistent arterial bleeding was noted from this spot. Again, the patient's heart was fatty and quite friable. It had a fair amount of bruising along with degloving. I did not feel that this defect could be fixed while the heart was beating, and for that reason I elected to arrest the heart. The aortic cross-clamp was applied. Antegrade cardioplegia was delivered. The heart had good arrest. Once it was empty, we were able to tilt the heart gently to see the defect. It was closed using an interrupted Prolene suture with felt pledgets. BioGlue was then added over the raw surface as was a patch of bovine pericardium. Addition of clotting agents was used to help slow down the generalized ooze. The aorta cross-clamp was removed. The patient was once again weaned off cardiopulmonary bypass. Protamine was administered. The patient still had mild to moderate oozing, but it had greatly improved. Again no bleeding was noted from any of the viewed surgical sites. I felt that the patient was ready for closure. A straight 32-Ethiop[place] chest tube was placed and directed into the left pleural space. Two additional straight 32-[place] chest tubes were placed and directed into the mediastinum. These were all secured to the skin. Soft tissues were reapproximated over the ascending aorta. The sternum was then reapproximated using stainless steel wires. It came together nicely. The patient's cardiac index after closure of the sternum was 2.3, and her blood pressure was adequate on low-dose milrinone and low-dose Levophed. The remainder of the wound was closed in layers. A sterile dressing was applied. The patient appeared to tolerate the procedure despite its complexity. She returned to the CCU in critical but stable condition. MMODL / IJN: [id number] / [facility]ITALLucas
[2017-11-26] MEDS: IPRATROPIUM-ALBUTEROL 3 ML NEB INHALATION SCH ×10 (00:37→23:37)
[2017-11-26] MEDS: ACETAMINOPHEN IV (For NPO) 1,000 MG in EMPTY BAG 1 BAG IVPB SCH ×3 (02:00→14:30)
[2017-11-26 02:04] LABS: Glucose,Whole Blood 200 mg/dL (75-99)
[2017-11-26 02:19] LABS: Anisocytosis Slight; Basophils % (A) 0 %; Eosinophils % (A) 0 %; Hypochromasia Marked; Lymphocytes # (A) 0.7 k/uL (1.0-4.8); Lymphocytes % (A) 8 %; MCH 26.2 pg (25.0-35.0); MCHC 30.8 g/dL (31.0-37.0); MCV 84.9 fL (80.0-100.0); Mean Platelet Volume 9.3; Monocytes # (A) 0.6 k/uL (0-1.0); Monocytes % (A) 7 %; Neutrophils # (A) 6.9 k/uL (1.3-7.7); Neutrophils % (A) 83 %; Platelet Count 101 k/uL (150-450); Poikilocytosis Marked; RBC 2.48 m/uL (3.80-5.40); RDW 17.7 % (11.5-15.5); WBC 8.3 k/uL (3.8-10.6)
[2017-11-26 02:23] LABS: HGB 6.5 gm/dL (11.4-16.0)
[2017-11-26 03:02] LABS: Glucose,Whole Blood 179 mg/dL (75-99)
[2017-11-26 03:52] LABS: Glucose,Whole Blood 189 mg/dL (75-99)
[2017-11-26 03:56] LABS: ABG Base Excess -1.9 mmol/L; ABG HCO3 24 mmol/L (21-25); ABG PCO2 43 mmHg (35-45); ABG PH 7.35 (7.35-7.45); ABG PO2 94 mmHg (83-108); ABG TCO2 25 mmol/L (19-24)
[2017-11-26] MEDS: SODIUM CHLORIDE 0.9% 99 ML with VASOPRESSIN 20 UNIT IV SCH ×6 (04:20→22:31)
[2017-11-26 04:27] LABS: Glucose,Whole Blood 244 mg/dL (75-99)
[2017-11-26 04:51] LABS: Ionized Calcium 4.5 mg/dL (4.5-5.3)
[2017-11-26 04:52] LABS: Anisocytosis Slight; Basophils % (A) 0 %; Eosinophils % (A) 0 %; HCT 25.8 % (34.0-46.0); HGB 7.9 gm/dL (11.4-16.0); Hypochromasia Marked; Lymphocytes # (A) 1.1 k/uL (1.0-4.8); Lymphocytes % (A) 11 %; MCHC 30.7 g/dL (31.0-37.0); MCV 84.8 fL (80.0-100.0); Mean Platelet Volume 8.7; Monocytes # (A) 0.6 k/uL (0-1.0); Monocytes % (A) 6 %; Neutrophils # (A) 7.7 k/uL (1.3-7.7); Neutrophils % (A) 81 %; Platelet Count 126 k/uL (150-450); Poikilocytosis Marked; RBC 3.04 m/uL (3.80-5.40); RDW 16.3 % (11.5-15.5); WBC 9.5 k/uL (3.8-10.6)
[2017-11-26 05:01] LABS: Albumin 2.7 g/dL (3.5-5.0); Calcium 7.8 mg/dL (8.4-10.2); Magnesium 2.4 mg/dL (1.6-2.3); Potassium 4.9 mmol/L (3.5-5.1); Total Bilirubin 0.6 mg/dL (0.2-1.3); Total Protein 4.3 g/dL (6.3-8.2)
[2017-11-26 05:06] LABS: Glucose,Whole Blood 189 mg/dL (75-99)
[2017-11-26 05:21] LABS: INR 1.1 (<1.2)
[2017-11-26 05:23] LABS: Prothrombin Time 11.1 sec (9.0-12.0)
[2017-11-26 05:24] LABS: Partial Thromboplastin Time 45.6 sec (22.0-30.0)
[2017-11-26 06:00] LABS: Glucose,Whole Blood 166 mg/dL (75-99)
[2017-11-26] MEDS: ceFAZolin IN SWFI 2 GM/20 ML SYRINGE IVP SCH ×2 (06:19→12:58)
[2017-11-26 07:18] LABS: Glucose,Whole Blood 157 mg/dL (75-99)
[2017-11-26 07:26] LABS: Anisocytosis Slight; Basophils % (A) 0 %; Eosinophils % (A) 0 %; HCT 28.6 % (34.0-46.0); HGB 8.9 gm/dL (11.4-16.0); Hypochromasia Moderate; Lymphocytes % (A) 10 %; MCH 26.9 pg (25.0-35.0); MCHC 31.1 g/dL (31.0-37.0); MCV 86.5 fL (80.0-100.0); Mean Platelet Volume 9.7; Monocytes # (A) 0.7 k/uL (0-1.0); Monocytes % (A) 7 %; Neutrophils # (A) 8.3 k/uL (1.3-7.7); Neutrophils % (A) 82 %; Poikilocytosis Moderate; RBC 3.31 m/uL (3.80-5.40); RDW 16.3 % (11.5-15.5); WBC 10.2 k/uL (3.8-10.6)
--- NOTE | 2017-11-26 07:32 | XR ---
EXAMINATION TYPE: XR chest 1V portable DATE OF EXAM: 11/26/2017 COMPARISON: 11/25/2017 HISTORY: Postop cardiac surgery FINDINGS: There are bilateral pleural effusions with cardiomegaly and bibasilar infiltrate. There is a diffuse interstitial pattern. Vascular stents, mediastinal drain, [place] catheter, postsurgical changes and chest tube are stabl e. ET tube unchanged. NG tube appears to extend in the left upper quadrant abdomen. IMPRESSION: 1. Postsurgical changes with findings suggestive of bilateral infiltrate, small effusion and venous c ongestion. 2. NG tube has been placed with the tip in the region of the left upper quadrant likely within the st omach.
[2017-11-26 07:57] LABS: Polychromasia Present
[2017-11-26 07:58] LABS: Platelet Count 97 k/uL (150-450)
[2017-11-26] MEDS ORDERED: HEPARIN SODIUM,PORCINE 5,000 UNIT/ML 1 ML VIAL SQ SCH (08:00)
[2017-11-26] MEDS: AMIODARONE 450 MG in DEXTROSE 5% IN WATER 250 ML IV SCH ×4 (08:31→15:32)
--- NOTE | 2017-11-26 08:58 | P.PN ---
Subjective Progress Note Date: 11/26/17 Principal diagnosis: Severe mitral regurgitation. Coronary artery disease. Paroxysmal atrial fibrillation on Coumadin for anticoagulation. Recent hospitalization for lower GI bleed, duodenal ulcer. History of left subclavian stenosis with stent placement 2014 with recent discovery of critical re-in-stent stenosis. Previous tobacco dependence with preoperative FEV1 60% of predicted. Hypertension. Hyperlipidemia. Gallbladder disease. Family history of heart disease. Preoperative nasal swab positive for MRSA. Preoperative anemia. POD #1 mitral valve replacement using a 25 mm Ribera bioprosthetic tissue valve. Coronary artery bypass grafting 1, reverse saphenous vein graft to the obtuse marginal artery. Maze procedure. Endoscopic harvesting of the right greater saphenous vein. Epi-aortic ultrasound. Intraoperative transesophageal echocardiogram. Ligation of the left atrial appendage using a 40 mm AtriClip. Acute blood loss anemia, and expected outcome given patient's preoperative anemia and intraoperative bleeding. The patient is currently lying in bed in critical but stable condition. Remains sedated on mechanical ventilation. Received multiple blood products both intraoperatively and postoperatively. Remains on Primacor, levo, and vasopressin IV. Objective - Vital Signs Vital signs: Vital Signs Temp 98.2 F 11/26/17 06:00 Pulse 109 H 11/26/17 08:09 Resp 16 11/26/17 04:00 BP 98/42 11/26/17 03:54 Pulse Ox 96 11/26/17 06:15 Intake & Output 11/25/17 11/26/17 11/26/17 18:59 06:59 18:59 Intake Total 3862 3183.856 101.2 Output Total 1728 72 Balance 3862 1455.856 29.2 Weight 107.8 kg Intake: IV 32 2179.0 101.2 ACETAMINOPHEN IV (For NPO 200 ) 1,000 mg In Empty Bag 1 bag @ 400 mls/hr IVPB Q6H [facility] Rx#:[id number] Albumin Human 5% 250 ml 1000 In Empty Bag 1 bag @ 250 mls/hr IVPB Q1HR PRN Rx#: [id number] Amiodarone 450 mg In 33.7 Dextrose 5% in Water 250 ml @ 1 MG/MIN 33.33 mls/ hr IV .Q7H31M [facility] Rx#: [id number] CO/CI 220 Lactated Ringers 1,000 ml 550 50 @ 50 mls/hr IV .Q20H [facility] Rx#:[id number] Milrinone-D5w Pmx 20 mg 93.5 8.5 In Dextrose/Water 1 100ml .bag @ Per Protocol IV . Q0M [facility] Rx#:[id number] Nitroglycerin-D5w Pmx 50 16.5 mg In Dextrose/Water 1 250ml.bag @ 5 MCG/MIN 1.5 mls/hr IV .Q24H [facility] Rx#: [id number] Pressure Bag 99 9 Intake, IV Titration 25.856 Amount Insulin Regular 100 unit 25.856 In Sodium Chloride 0.9% 100 ml @ Per Protocol IV .Q0M [facility] Rx#:[id number] Blood Product 3830 979 Cryoprecipitate Unit 0 [id number] Cryoprecipitate Unit 0 [id number] Cryoprecipitate Unit 10 [id number] Cryoprecipitate Unit 0 [id number] Cryoprecipitate Unit 0 [id number] Cryoprecipitate Unit 10 [id number] Cryoprecipitate Unit 0 [id number] Cryoprecipitate Unit 0 [id number] Cryoprecipitate Unit 10 [id number] Cryoprecipitate Unit 0 [id number] Cryoprecipitate Unit 10 [id number] Cryoprecipitate Unit 10 [id number] Cryoprecipitate Unit 10 [id number] Cryoprecipitate Unit 10 [id number] Cryoprecipitate Unit 10 [id number] Cryoprecipitate Unit 10 [id number] Cryoprecipitate Unit 10 [id number] Cryoprecipitate Unit 10 [id number] Cryoprecipitate Unit 10 [id number] Cryoprecipitate Unit 10 [id number] Ffp 24 Cpd Unit 289 [id number] Ffp 24 Cpd Unit 297 [id number] Ffp 24 Cpd Unit 331 [id number] Ffp 24 Cpd Unit 305 [id number] Platelet Pheresis Acda1 204 Unit [id number] Platelet Pheresis Acda2 259 Unit [id number] Platelet Pheresis Acda3 204 Unit [id number] Rc As-1 Unit 310 [id number] Rc As-1 Unit 310 [id number] Rc As-1 Unit 0 310 [id number] Rc As-1 Unit 310 [id number] Rc As-1 Unit 310 [id number] Rc As-1 Unit 310 [id number] Rc As-1 Unit 310 [id number] Rc As-1 Unit 0 [id number] Rc As-1 Unit 310 [id number] Rc As-1 Unit 310 [id number] Output: Chest Tube Drainage 1265 40 BL Mediastinal 810 0 Left Pleural 455 40 Urine 463 32 Other: Voiding Method Indwelling Catheter ABP, PAP, CO, CI - Last Documented Arterial Blood Pressure 106/46 Pulmonary Artery Pressure 35/28 Cardiac Output 4 Cardiac Index 2 - Constitutional General appearance: Present: no acute distress, obese - Respiratory Details: Lung sounds diminished bilaterally. Respirations even, nonlabored on mechanical ventilation. Current settings assist control mode, FiO2 60%, tidal volume 500, respiratory rate 16, PEEP 8. 8.0 ET tube present, 21 at the lip. Most recent blood gases on the above settings 7.35/43/94/24/90%/-1.9. Mediastinal chest tube to -20 cm wall suction, 660 mL serosanguineous drainage overnight, 800 mL since surgery. Left pleural chest tube to -20 cm wall suction , 260 mL serosanguineous drainage overnight, 450 mL since surgery. No air leak present. - Cardiovascular Details: S1, S2 present. Regular rate and rhythm, sinus tach on telemetry. A/V epicardial pacemaker wires present, connected to generator, generator currently off. Sternum stable. Palpable peripheral pulses bilaterally. Generalized edema present. Antiembolism stockings, SCDs present. Right internal jugular [place], right radial arterial line present. Current CO/CI 3.9/2.0 on 0.3 mics Primacor, 4 mics levo, 0.03 units vaso. - Gastrointestinal Gastrointestinal Comment(s): Abdomen soft, nontender, nondistended. Hypoactive bowel sounds present 4 quadrants. OG tube present to lower limit suction, minimal green drainage - Genitourinary Genitourinary Comment(s): Mason present to dependent drainage with clear yellow urine. Output 25-40 mL/h overnight. - Integumentary Integumentary Comment(s): Skin is warm and dry with evidence of good perfusion. Anterior chest incision well approximated and covered with dry intact dressing. Right lower extremity EVH site well approximated. - Neurologic Neurologic Comment(s): Currently sedated on mechanical ventilation. - Allied health notes Allied health notes reviewed: nursing - Labs CBC & Chem 7: 11/26/17 07:20 11/26/17 04:22 Labs: Abnormal Lab Results - Last 24 Hours (Table) 11/23/17 11/25/17 11/25/17 Range/Units 08:19 14:40 14:40 WBC 14.4 H (3.8-10.6) k/uL RBC 3.32 L (3.80-5.40) m/uL Hgb 8.3 L (11.4-16.0) gm/dL Hct 27.3 L (34.0-46.0) % MCH 24.9 L (25.0-35.0) pg MCHC 30.4 L (31.0-37.0) g/dL RDW 18.0 H (11.5-15.5) % Plt Count (150-450) k/uL Neutrophils # 12.4 H (1.3-7.7) k/uL Lymphocytes # (1.0-4.8) k/uL PT 12.5 H (9.0-12.0) sec INR 1.3 H (<1.2) APTT 34.6 H (22.0-30.0) sec Fibrinogen (200-500) mg/dL ABG pH (7.35-7.45) ABG pCO2 (35-45) mmHg ABG pO2 (83-108) mmHg ABG HCO3 (21-25) mmol/L ABG Total CO2 (19-24) mmol/L ABG O2 Saturation (94-97) % Sodium (137-145) mmol/L Chloride (98-107) mmol/L BUN (7-17) mg/dL Creatinine (0.52-1.04) mg/dL Glucose (74-99) mg/dL POC Glucose (mg/dL) (75-99) mg/dL Calcium (8.4-10.2) mg/dL Magnesium (1.6-2.3) mg/dL AST (14-36) U/L Alkaline Phosphatase (38-126) U/L Total Protein (6.3-8.2) g/dL Albumin (3.5-5.0) g/dL Crossmatch See Detail 11/25/17 11/25/17 11/25/17 Range/Units 19:08 19:10 19:10 WBC 12.2 H (3.8-10.6) k/uL RBC (3.80-5.40) m/uL Hgb 10.7 L (11.4-16.0) gm/dL Hct 33.2 L (34.0-46.0) % MCH (25.0-35.0) pg MCHC (31.0-37.0) g/dL RDW 16.7 H (11.5-15.5) % Plt Count 88 L (150-450) k/uL Neutrophils # 10.3 H (1.3-7.7) k/uL Lymphocytes # 0.7 L (1.0-4.8) k/uL PT (9.0-12.0) sec INR (<1.2) APTT (22.0-30.0) sec Fibrinogen 195 L (200-500) mg/dL ABG pH (7.35-7.45) ABG pCO2 (35-45) mmHg ABG pO2 (83-108) mmHg ABG HCO3 (21-25) mmol/L ABG Total CO2 (19-24) mmol/L ABG O2 Saturation (94-97) % Sodium (137-145) mmol/L Chloride (98-107) mmol/L BUN (7-17) mg/dL Creatinine (0.52-1.04) mg/dL Glucose (74-99) mg/dL POC Glucose (mg/dL) 159 H (75-99) mg/dL Calcium (8.4-10.2) mg/dL Magnesium (1.6-2.3) mg/dL AST (14-36) U/L Alkaline Phosphatase (38-126) U/L Total Protein (6.3-8.2) g/dL Albumin (3.5-5.0) g/dL Crossmatch 11/25/17 11/25/17 11/25/17 Range/Units 19:10 19:10 19:38 WBC (3.8-10.6) k/uL RBC (3.80-5.40) m/uL Hgb (11.4-16.0) gm/dL Hct (34.0-46.0) % MCH (25.0-35.0) pg MCHC (31.0-37.0) g/dL RDW (11.5-15.5) % Plt Count (150-450) k/uL Neutrophils # (1.3-7.7) k/uL Lymphocytes # (1.0-4.8) k/uL PT 12.6 H (9.0-12.0) sec INR 1.3 H (<1.2) APTT (22.0-30.0) sec Fibrinogen (200-500) mg/dL ABG pH 7.29 L (7.35-7.45) ABG pCO2 50 H (35-45) mmHg ABG pO2 209 H (83-108) mmHg ABG HCO3 (21-25) mmol/L ABG Total CO2 25 H (19-24) mmol/L ABG O2 Saturation 99.0 H (94-97) % Sodium 146 H (137-145) mmol/L Chloride 110 H (98-107) mmol/L BUN (7-17) mg/dL Creatinine (0.52-1.04) mg/dL Glucose 139 H (74-99) mg/dL POC Glucose (mg/dL) (75-99) mg/dL Calcium 8.2 L (8.4-10.2) mg/dL Magnesium 2.4 H (1.6-2.3) mg/dL AST 92 H (14-36) U/L Alkaline Phosphatase 37 L (38-126) U/L Total Protein 4.0 L (6.3-8.2) g/dL Albumin 2.2 L (3.5-5.0) g/dL Crossmatch 11/25/17 11/25/17 11/25/17 Range/Units 19:59 21:02 21:58 WBC (3.8-10.6) k/uL RBC (3.80-5.40) m/uL Hgb (11.4-16.0) gm/dL Hct (34.0-46.0) % MCH (25.0-35.0) pg MCHC (31.0-37.0) g/dL RDW (11.5-15.5) % Plt Count (150-450) k/uL Neutrophils # (1.3-7.7) k/uL Lymphocytes # (1.0-4.8) k/uL PT (9.0-12.0) sec INR (<1.2) APTT (22.0-30.0) sec Fibrinogen (200-500) mg/dL ABG pH (7.35-7.45) ABG pCO2 (35-45) mmHg ABG pO2 (83-108) mmHg ABG HCO3 (21-25) mmol/L ABG Total CO2 (19-24) mmol/L ABG O2 Saturation (94-97) % Sodium (137-145) mmol/L Chloride (98-107) mmol/L BUN (7-17) mg/dL Creatinine (0.52-1.04) mg/dL Glucose (74-99) mg/dL POC Glucose (mg/dL) 147 H 149 H 143 H (75-99) mg/dL Calcium (8.4-10.2) mg/dL Magnesium (1.6-2.3) mg/dL AST (14-36) U/L Alkaline Phosphatase (38-126) U/L Total Protein (6.3-8.2) g/dL Albumin (3.5-5.0) g/dL Crossmatch 11/25/17 11/25/17 11/25/17 Range/Units 22:09 22:56 23:13 WBC (3.8-10.6) k/uL RBC 2.88 L (3.80-5.40) m/uL Hgb 7.7 L D (11.4-16.0) gm/dL Hct 23.7 L (34.0-46.0) % MCH (25.0-35.0) pg MCHC (31.0-37.0) g/dL RDW 16.7 H (11.5-15.5) % Plt Count 78 L (150-450) k/uL Neutrophils # (1.3-7.7) k/uL Lymphocytes # (1.0-4.8) k/uL PT (9.0-12.0) sec INR (<1.2) APTT (22.0-30.0) sec Fibrinogen (200-500) mg/dL ABG pH (7.35-7.45) ABG pCO2 (35-45) mmHg ABG pO2 144 H (83-108) mmHg ABG HCO3 28 H (21-25) mmol/L ABG Total CO2 30 H (19-24) mmol/L ABG O2 Saturation 99.0 H (94-97) % Sodium (137-145) mmol/L Chloride (98-107) mmol/L BUN (7-17) mg/dL Creatinine (0.52-1.04) mg/dL Glucose (74-99) mg/dL POC Glucose (mg/dL) 144 H (75-99) mg/dL Calcium (8.4-10.2) mg/dL Magnesium (1.6-2.3) mg/dL AST (14-36) U/L Alkaline Phosphatase (38-126) U/L Total Protein (6.3-8.2) g/dL Albumin (3.5-5.0) g/dL Crossmatch 11/26/17 11/26/17 11/26/17 Range/Units 02:00 02:01 02:59 WBC (3.8-10.6) k/uL RBC 2.48 L (3.80-5.40) m/uL Hgb 6.5 L* (11.4-16.0) gm/dL Hct 21.0 L (34.0-46.0) % MCH (25.0-35.0) pg MCHC 30.8 L (31.0-37.0) g/dL RDW 17.7 H (11.5-15.5) % Plt Count 101 L (150-450) k/uL Neutrophils # (1.3-7.7) k/uL Lymphocytes # 0.7 L (1.0-4.8) k/uL PT (9.0-12.0) sec INR (<1.2) APTT (22.0-30.0) sec Fibrinogen (200-500) mg/dL ABG pH (7.35-7.45) ABG pCO2 (35-45) mmHg ABG pO2 (83-108) mmHg ABG HCO3 (21-25) mmol/L ABG Total CO2 (19-24) mmol/L ABG O2 Saturation (94-97) % Sodium (137-145) mmol/L Chloride (98-107) mmol/L BUN (7-17) mg/dL Creatinine (0.52-1.04) mg/dL Glucose (74-99) mg/dL POC Glucose (mg/dL) 200 H 179 H (75-99) mg/dL Calcium (8.4-10.2) mg/dL Magnesium (1.6-2.3) mg/dL AST (14-36) U/L Alkaline Phosphatase (38-126) U/L Total Protein (6.3-8.2) g/dL Albumin (3.5-5.0) g/dL Crossmatch 11/26/17 11/26/17 11/26/17 Range/Units 03:50 03:50 04:22 WBC (3.8-10.6) k/uL RBC 3.04 L (3.80-5.40) m/uL Hgb 7.9 L (11.4-16.0) gm/dL Hct 25.8 L (34.0-46.0) % MCH (25.0-35.0) pg MCHC 30.7 L (31.0-37.0) g/dL RDW 16.3 H (11.5-15.5) % Plt Count 126 L (150-450) k/uL Neutrophils # (1.3-7.7) k/uL Lymphocytes # (1.0-4.8) k/uL PT (9.0-12.0) sec INR (<1.2) APTT (22.0-30.0) sec Fibrinogen (200-500) mg/dL ABG pH (7.35-7.45) ABG pCO2 (35-45) mmHg ABG pO2 (83-108) mmHg ABG HCO3 (21-25) mmol/L ABG Total CO2 25 H (19-24) mmol/L ABG O2 Saturation 98.0 H (94-97) % Sodium (137-145) mmol/L Chloride (98-107) mmol/L BUN (7-17) mg/dL Creatinine (0.52-1.04) mg/dL Glucose (74-99) mg/dL POC Glucose (mg/dL) 189 H (75-99) mg/dL Calcium (8.4-10.2) mg/dL Magnesium (1.6-2.3) mg/dL AST (14-36) U/L Alkaline Phosphatase (38-126) U/L Total Protein (6.3-8.2) g/dL Albumin (3.5-5.0) g/dL Crossmatch 11/26/17 11/26/17 11/26/17 Range/Units 04:22 04:22 04:25 WBC (3.8-10.6) k/uL RBC (3.80-5.40) m/uL Hgb (11.4-16.0) gm/dL Hct (34.0-46.0) % MCH (25.0-35.0) pg MCHC (31.0-37.0) g/dL RDW (11.5-15.5) % Plt Count (150-450) k/uL Neutrophils # (1.3-7.7) k/uL Lymphocytes # (1.0-4.8) k/uL PT (9.0-12.0) sec INR (<1.2) APTT 45.6 H (22.0-30.0) sec Fibrinogen (200-500) mg/dL ABG pH (7.35-7.45) ABG pCO2 (35-45) mmHg ABG pO2 (83-108) mmHg ABG HCO3 (21-25) mmol/L ABG Total CO2 (19-24) mmol/L ABG O2 Saturation (94-97) % Sodium 147 H (137-145) mmol/L Chloride 109 H (98-107) mmol/L BUN 22 H (7-17) mg/dL Creatinine 1.40 H (0.52-1.04) mg/dL Glucose 218 H (74-99) mg/dL POC Glucose (mg/dL) 244 H (75-99) mg/dL Calcium 7.8 L (8.4-10.2) mg/dL Magnesium 2.4 H (1.6-2.3) mg/dL AST 134 H (14-36) U/L Alkaline Phosphatase 28 L (38-126) U/L Total Protein 4.3 L (6.3-8.2) g/dL Albumin 2.7 L (3.5-5.0) g/dL Crossmatch 11/26/17 11/26/17 11/26/17 Range/Units 05:01 05:58 07:16 WBC (3.8-10.6) k/uL RBC (3.80-5.40) m/uL Hgb (11.4-16.0) gm/dL Hct (34.0-46.0) % MCH (25.0-35.0) pg MCHC (31.0-37.0) g/dL RDW (11.5-15.5) % Plt Count (150-450) k/uL Neutrophils # (1.3-7.7) k/uL Lymphocytes # (1.0-4.8) k/uL PT (9.0-12.0) sec INR (<1.2) APTT (22.0-30.0) sec Fibrinogen (200-500) mg/dL ABG pH (7.35-7.45) ABG pCO2 (35-45) mmHg ABG pO2 (83-108) mmHg ABG HCO3 (21-25) mmol/L ABG Total CO2 (19-24) mmol/L ABG O2 Saturation (94-97) % Sodium (137-145) mmol/L Chloride (98-107) mmol/L BUN (7-17) mg/dL Creatinine (0.52-1.04) mg/dL Glucose (74-99) mg/dL POC Glucose (mg/dL) 189 H 166 H 157 H (75-99) mg/dL Calcium (8.4-10.2) mg/dL Magnesium (1.6-2.3) mg/dL AST (14-36) U/L Alkaline Phosphatase (38-126) U/L Total Protein (6.3-8.2) g/dL Albumin (3.5-5.0) g/dL Crossmatch 11/26/17 Range/Units 07:20 WBC (3.8-10.6) k/uL RBC 3.31 L (3.80-5.40) m/uL Hgb 8.9 L (11.4-16.0) gm/dL Hct 28.6 L (34.0-46.0) % MCH (25.0-35.0) pg MCHC (31.0-37.0) g/dL RDW 16.3 H (11.5-15.5) % Plt Count 97 L (150-450) k/uL Neutrophils # 8.3 H (1.3-7.7) k/uL Lymphocytes # (1.0-4.8) k/uL PT (9.0-12.0) sec INR (<1.2) APTT (22.0-30.0) sec Fibrinogen (200-500) mg/dL ABG pH (7.35-7.45) ABG pCO2 (35-45) mmHg ABG pO2 (83-108) mmHg ABG HCO3 (21-25) mmol/L ABG Total CO2 (19-24) mmol/L ABG O2 Saturation (94-97) % Sodium (137-145) mmol/L Chloride (98-107) mmol/L BUN (7-17) mg/dL Creatinine (0.52-1.04) mg/dL Glucose (74-99) mg/dL POC Glucose (mg/dL) (75-99) mg/dL Calcium (8.4-10.2) mg/dL Magnesium (1.6-2.3) mg/dL AST (14-36) U/L Alkaline Phosphatase (38-126) U/L Total Protein (6.3-8.2) g/dL Albumin (3.5-5.0) g/dL Crossmatch - Imaging and Cardiology Chest x-ray: report reviewed, image reviewed Assessment and Plan (1) Acute blood loss anemia Current Visit: Yes Status: Acute Code(s): D62 - ACUTE POSTHEMORRHAGIC ANEMIA SNOMED Code(s): 479662630 (2) CAD (coronary artery disease) Current Visit: Yes Status: Chronic Code(s): I25.10 - ATHSCL HEART DISEASE OF [place] CORONARY ARTERY W/O ANG PCTRS SNOMED Code(s): 35727639 (3) Hyperlipidemia Current Visit: Yes Status: Chronic Code(s): E78.5 - HYPERLIPIDEMIA, UNSPECIFIED SNOMED Code(s): 86024424 (4) Hypertension Current Visit: Yes Status: Chronic Code(s): I10 - ESSENTIAL (PRIMARY) HYPERTENSION SNOMED Code(s): 60550420 (5) Severe mitral regurgitation Current Visit: Yes Status: Chronic Code(s): I34.0 - NONRHEUMATIC MITRAL ( VALVE) INSUFFICIENCY SNOMED Code(s): 63302322 (6) Stenosis of left subclavian artery Current Visit: Yes Status: Chronic Code(s): I77.1 - STRICTURE OF ARTERY SNOMED Code(s): 018559856 (7) Paroxysmal atrial fibrillation Current Visit: No Status: Resolved Code(s): I48.0 - PAROXYSMAL ATRIAL FIBRILLATION SNOMED Code(s): 461190415 (8) History of GI bleed Current Visit: No Status: Resolved Code(s): Z87.19 - PERSONAL HISTORY OF OTHER DISEASES OF THE DIGESTIVE SYSTEM SNOMED Code(s): 913679296 (9) Family history of coronary artery disease Current Visit: Yes Status: Chronic Code(s): Z82.49 - FAMILY HX OF ISCHEM HEART DIS AND OTH DIS OF THE CIRC SYS SNOMED Code(s): 269643919 Plan: 1. Continue Primacor, levo, vaso-IV. 2. Add amiodarone for tachycardia, history of paroxysmal atrial fibrillation on home amiodarone. 3. Mechanical ventilation per pulmonology. 4. GI/DVT prophylaxis. 5. Will hold beta krunal at now while on IV pressors. 6. Will monitor chest tube output continuously, watch for evidence of bleeding. 7. Will monitor labs, chest x-rays. 8. Continue mupirocin for preoperative MRSA positive nasal swab. 9. Will add in aspirin, Plavix, subcu heparin, home medications when appropriate. 10. Patient is currently critical but relatively stable, will monitor very closely. 11. More recommendations as patient progresses. Time with Patient: Greater than 30
[2017-11-26] MEDS ORDERED: ASPIRIN 325 MG TAB PO SCH (09:00)
[2017-11-26 09:11] LABS: Glucose,Whole Blood 125 mg/dL (75-99)
[2017-11-26] MEDS: AMIODARONE 200 MG TAB PO SCH ×2 (09:20→20:28)
[2017-11-26] MEDS: ATORVASTATIN 40 MG TAB PO SCH (09:20)
[2017-11-26] MEDS: PANTOPRAZOLE 40 MG/10 ML VIAL IVP SCH (09:21)
[2017-11-26] MEDS ORDERED: SODIUM CHLORIDE 0.9% 500 ML IV SCH (09:30)
[2017-11-26 09:53] LABS: ABG Base Excess -1.4 mmol/L; ABG HCO3 24 mmol/L (21-25); ABG Oxygen Saturation 95.5 % (94-97); ABG PCO2 45 mmHg (35-45); ABG PH 7.34 (7.35-7.45); ABG PO2 79 mmHg (83-108); ABG TCO2 26 mmol/L (19-24)
[2017-11-26 10:06] LABS: Glucose,Whole Blood 126 mg/dL (75-99)
[2017-11-26] MEDS: METOPROLOL TARTRATE 12.5 MG TAB PO SCH ×2 (10:41→20:28)
[2017-11-26] MEDS: MUPIROCIN 2% OINT 22 GM TUBE NASAL SCH ×2 (10:42→21:09)
[2017-11-26] MEDS: ASPIRIN 81 MG PO SCH (11:00)
[2017-11-26] MEDS: SODIUM CHLORIDE 0.45% 1,000 ML IV SCH (11:01)
[2017-11-26 11:13] LABS: Glucose,Whole Blood 123 mg/dL (75-99)
[2017-11-26 11:43] LABS: Anisocytosis Slight; HCT 26.4 % (34.0-46.0); HGB 8.4 gm/dL (11.4-16.0); Hypochromasia Moderate; MCH 27.3 pg (25.0-35.0); MCHC 31.8 g/dL (31.0-37.0); MCV 85.9 fL (80.0-100.0); Mean Platelet Volume 9.5; Poikilocytosis Moderate; RBC 3.07 m/uL (3.80-5.40); RDW 16.5 % (11.5-15.5); WBC 11.8 k/uL (3.8-10.6)
[2017-11-26 11:49] LABS: Platelet Count 91 k/uL (150-450)
[2017-11-26 11:51] LABS: Ionized Calcium 4.9 mg/dL (4.5-5.3)
[2017-11-26 12:01] LABS: Calcium 8.4 mg/dL (8.4-10.2); Potassium 4.3 mmol/L (3.5-5.1)
[2017-11-26 12:10] LABS: Glucose,Whole Blood 129 mg/dL (75-99)
[2017-11-26 13:06] LABS: Glucose,Whole Blood 136 mg/dL (75-99)
[2017-11-26] MEDS ORDERED: FUROSEMIDE 10 MG/ML 2 ML VIAL IV ONE (13:32)
--- NOTE | 2017-11-26 13:40 | P.CNPUL ---
History of Present Illness Consult date: 11/26/17 Requesting physician: Dion Back Reason for consult: other (ICU management, patient is on mechanical ventilation. Status post mitral valve replacement postoperative day #1.) Chief complaint: Mitral valve regurgitation status post mitral valve repair and CABG 1 History of present illness: This is a 67-year-old female with history of severe mitral regurgitation, paroxysmal atrial fibrillation, recent admission for lower GI bleeding and duodenal ulcer, history of left subclavian stenosis and stent placement in 2014 , recently discovered to have critical in-stent stenosis, patient underwent mitral valve replacement yesterday and CABG 1 with reverse saphenous vein graft to the obtuse marginal artery, Maze procedure, and ligation of the left atrial appendage. Patient had intraoperative complications with intraoperative bleeding requiring massive transfusion for acute blood loss, she also received significant amount of cryoprecipitate. He received a total of 9 units of packed RBCs, 4 units of fresh was a plasma, 3 units of platelets, and 20 units of cryoprecipitate. Patient was stabilized hemodynamically, sent to the ICU on mechanical ventilation, and she remains on mechanical ventilation since last night. Ventilator settings were noted, she is presently on tidal volume of 550 , assist control rate of 16, FiO2 of 55%, and PEEP of 8. ABG this morning showed a pO2 of 79 pCO2 of 45 pH of 7.34. Hence her tidal volume was increased from 500-550. Chest x-ray this morning showed postsurgical changes, small bilateral effusions and venous congestion. Lines and endotracheal tube were noted to be in proper position patient is still requiring significant medications including Primacor, norepinephrine, and cardiac index is in the range of 2.0. Clearly at this point the patient is not stable enough to address weaning and extubation at this point. All labs were reviewed, her BUN is 24 creatinine is 1.47. Baseline creatinine is 0.84. Review of Systems ROS unobtainable: due to endotracheal tube Past Medical History Past Medical History: Atrial Fibrillation, GI Bleed, Hyperlipidemia, Hypertension, Osteoarthritis (OA) Additional Past Medical History / Comment(s): HX: Was told "leaky valve", pt states has been experiencing "gallbladder pain", followed by dr small for sx & elevated liver enzymes, shortness of breath with activity, recent GI bleed- transfusion in October 2017, has left subclavian stent-mostly occluded History of Any Multi-Drug Resistant Organisms: None Reported Past Surgical History: Heart Catheterization, Heart Catheterization With Stent, Orthopedic Surgery, Tonsillectomy Additional Past Surgical History / Comment(s): L subclavian stent x2, Other SX:D &C,NILDA, carpal tunnel geovanni Past Anesthesia/Blood Transfusion Reactions: No Reported Reaction Additional Past Anesthesia/Blood Transfusion Reaction / Comment(s): recent transfusion-no problems Date of Last Stent Placement:: 05/03/15 Smoking Status: Former smoker - Past Family History Mother Family Medical History: Hypertension Additional Family Medical History / Comment(s): LEAKY HEART VALVES,HEART PROBLEMS, WITH BOWEL OBS Father Family Medical History: Myocardial Infarction ([place]) Additional Family Medical History / Comment(s): HEART PROBLEMS, AT AGE 68 WITH [place] Medications and Allergies Home Medications Medication Instructions Recorded Confirmed Type Escitalopram [Lexapro] 10 mg PO HS 02/01/14 11/25/17 History Aspirin EC [Ecotrin Low Dose] 81 mg PO HS 02/19/16 11/25/17 History Atorvastatin [Lipitor] 20 mg PO DAILY #30 tab 09/04/17 11/25/17 Rx Furosemide [Lasix] 20 mg PO DAILY #30 tab 09/04/17 11/25/17 Rx Metoprolol Tartrate [Lopressor] 12.5 mg PO BID 09/17/17 11/25/17 History Amiodarone [Cordarone] 200 mg PO DAILY 10/12/17 11/25/17 History Warfarin [Coumadin] 3 mg PO DAILY #30 tab 10/14/17 11/25/17 Rx Aspirin 325 mg PO ONCE 11/25/17 11/25/17 History Allergies Allergy/AdvReac Type Severity Reaction Status Date / Time codeine AdvReac Hallucinati Verified 11/25/17 15:17 ons Physical Exam Vitals: Vital Signs Temp Pulse Resp BP Pulse Ox 11/26/17 13:00 107 H 16 95 11/26/17 12:30 108 H 16 98 11/26/17 12:15 108 H 11/26/17 12:00 106 H 16 95 11/26/17 11:55 108 H 11/26/17 11:30 106 H 94 L 11/26/17 11:00 106 H 16 94 L 11/26/17 10:30 107 H 16 96 11/26/17 10:00 109 H 16 95 11/26/17 09:30 109 H 16 96 11/26/17 09:00 109 H 16 97 11/26/17 08:45 110 H 96 11/26/17 08:30 110 H 97 11/26/17 08:15 108 H 99 11/26/17 08:09 109 H 11/26/17 08:01 107 H 11/26/17 08:00 108 H 96 11/26/17 07:45 108 H 96 11/26/17 07:30 108 H 96 11/26/17 07:15 108 H 96 11/26/17 07:00 98.2 F 108 H 16 97 11/26/17 06:15 112 H 96 11/26/17 06:00 98.2 F 112 H 94 L 11/26/17 05:45 111 H 96 11/26/17 05:30 111 H 97 11/26/17 05:15 111 H 96 11/26/17 05:00 114 H 95 11/26/17 04:45 97.9 F 123 H 93 L 11/26/17 04:30 128 H 87 L 11/26/17 04:15 123 H 11/26/17 04:00 16 02 03:54 98.6 F 106 H 16 98/42 98 0218 03:25 98 11/26/17 01:38 98.6 F 106 H 16 88/42 98 18 01:37 98.6 F 106 H 16 75/43 98 02/18 01:36 98.6 F 106 H 16 67/43 98 18 01:35 98.6 F 106 H 16 68/45 98 0218 01:34 98.6 F 106 H 16 70/44 98 0218 01:00 98.6 F 106 H 16 77/46 98 02/18 00:56 106 H 0218 00:49 101 H 0218 00:34 98.6 F 103 H 16 80/46 98 02/18 00:15 103 H 98 0218 00:00 98.6 F 100 16 98 0222/18 23:45 99 98 0218 23:30 102 H 97 0218 23:15 99 97 0218 23:00 100 95 11/25/17 22:45 94 96 11/25/17 22:30 92 96 11/25/17 22:15 93 97 11/25/17 22:00 98.6 F 93 100 11/25/17 21:45 91 99 11/25/17 21:30 88 100 11/25/17 21:15 83 95 11/25/17 21:00 87 100 11/25/17 20:45 89 100 11/25/17 20:30 89 100 11/25/17 20:15 89 100 11/25/17 20:00 96.3 F L 88 16 98 11/25/17 19:45 92 100 11/25/17 19:30 98.6 F 90 16 88/65 98 11/25/17 19:15 84 111/62 100 11/25/17 19:00 93 Intake and Output 11/25/17 11/26/17 11/26/17 22:59 06:59 14:59 Intake Total 3418.0 1756.856 913.442 Output Total 493 1235 304 Balance 2925.0 521.856 609.442 Intake: IV 1117.0 1062.0 692.2 ACETAMINOPHEN IV (For NPO 100 100 ) 1,000 mg In Empty Bag 1 bag @ 400 mls/hr IVPB Q6H [facility] Rx#:[id number] Albumin Human 5% 250 ml 750 250 In Empty Bag 1 bag @ 250 mls/hr IVPB Q1HR PRN Rx#: [id number] Amiodarone 450 mg In 202.2 Dextrose 5% in Water 250 ml @ 1 MG/MIN 33.33 mls/ hr IV .Q7H31M [facility] Rx#: [id number] CO/CI 60 160 70 Calcium Gluconate 2,000 100 mg In Sodium Chloride 0.9 % 100 ml @ 100 mls/hr IVPB ONCE PRN Rx#: [id number] Lactated Ringers 1,000 ml 150 400 50 @ 50 mls/hr IV .Q20H [facility] Rx#:[id number] Milrinone-D5w Pmx 20 mg 25.5 68.0 51.0 In Dextrose/Water 1 100ml .bag @ Per Protocol IV . Q0M [facility] Rx#:[id number] Nitroglycerin-D5w Pmx 50 4.5 12.0 mg In Dextrose/Water 1 250ml.bag @ 5 MCG/MIN 1.5 mls/hr IV .Q24H [facility] Rx#: [id number] Pressure Bag 27 72 54 Sodium Chloride 0.9% 500 120 ml @ 30 mls/hr IV . [id number] [facility] Rx#:[id number] Sodium Chloride 0.9% 99 45 ml @ 0.03 UNITS/MIN 9 mls /hr IV .Q11H7M [facility] with Vasopressin 20 unit Rx#: [id number] Intake, IV Titration 25.856 41.242 Amount Insulin Regular 100 unit 25.856 41.242 In Sodium Chloride 0.9% 100 ml @ Per Protocol IV .Q0M [facility] Rx#:[id number] Blood Product 2301 669 Cryoprecipitate Unit 0 [id number] Cryoprecipitate Unit 0 [id number] Cryoprecipitate Unit 10 [id number] Cryoprecipitate Unit 0 [id number] Cryoprecipitate Unit 0 [id number] Cryoprecipitate Unit 10 [id number] Cryoprecipitate Unit 0 [id number] Cryoprecipitate Unit 0 [id number] Cryoprecipitate Unit 10 [id number] Cryoprecipitate Unit 0 [id number] Cryoprecipitate Unit 10 [id number] Cryoprecipitate Unit 10 [id number] Cryoprecipitate Unit 10 [id number] Cryoprecipitate Unit 10 [id number] Cryoprecipitate Unit 10 [id number] Cryoprecipitate Unit 10 [id number] Cryoprecipitate Unit 10 [id number] Cryoprecipitate Unit 10 [id number] Cryoprecipitate Unit 10 [id number] Cryoprecipitate Unit 10 [id number] Ffp 24 Cpd Unit 297 [id number] Ffp 24 Cpd Unit 331 [id number] Ffp 24 Cpd Unit 305 [id number] Platelet Pheresis Acda1 204 Unit [id number] Platelet Pheresis Acda2 259 Unit [id number] Platelet Pheresis Acda3 204 Unit [id number] Rc As-1 Unit 0 [id number] Rc As-1 Unit 310 [id number] Rc As-1 Unit 310 [id number] Rc As-1 Unit 310 [id number] Rc As-1 Unit 310 [id number] Rc As-1 Unit 0 [id number] Rc As-1 Unit 0 [id number] Other 180 Output: Chest Tube Drainage 345 920 110 BL Mediastinal 150 660 30 Left Pleural 195 260 80 Urine 148 315 194 Other: Voiding Method Indwelling Catheter Indwelling Catheter Indwelling Catheter Weight 107.8 kg ABP, PAP, CO, CI - Last 8 Hours Arterial Blood Pressure 100/45 Arterial Blood Pressure 95/45 Arterial Blood Pressure 98/45 Arterial Blood Pressure 99/43 Arterial Blood Pressure 89/42 Arterial Blood Pressure 88/41 Arterial Blood Pressure 91/42 Arterial Blood Pressure 93/45 Arterial Blood Pressure 98/46 Arterial Blood Pressure 101/48 Arterial Blood Pressure 98/45 Arterial Blood Pressure 95/45 Arterial Blood Pressure 76/35 Arterial Blood Pressure 93/43 Arterial Blood Pressure 102/46 Arterial Blood Pressure 106/48 Arterial Blood Pressure 106/46 Arterial Blood Pressure 101/46 Arterial Blood Pressure 103/46 Arterial Blood Pressure 101/44 Pulmonary Artery Pressure 30/21 Pulmonary Artery Pressure 29/21 Pulmonary Artery Pressure 30/21 Pulmonary Artery Pressure 30/20 Pulmonary Artery Pressure 30/21 Pulmonary Artery Pressure 29/21 Pulmonary Artery Pressure 30/22 Pulmonary Artery Pressure 30/22 Pulmonary Artery Pressure 31/23 Pulmonary Artery Pressure 32/24 Pulmonary Artery Pressure 31/24 Pulmonary Artery Pressure 30/23 Pulmonary Artery Pressure 28/21 Pulmonary Artery Pressure 29/22 Pulmonary Artery Pressure 30/22 Pulmonary Artery Pressure 30/23 Pulmonary Artery Pressure 29/22 Pulmonary Artery Pressure 31/24 Pulmonary Artery Pressure 31/23 Pulmonary Artery Pressure 33/25 Pulmonary Artery Pressure 35/28 Pulmonary Artery Pressure 34/26 Pulmonary Artery Pressure 35/27 Pulmonary Artery Pressure 36/28 Cardiac Output 3.8 Cardiac Output 3.8 Cardiac Output 3.9 Cardiac Output 4 Cardiac Output 4.8 Cardiac Output 4.8 Cardiac Output 4.8 Cardiac Index 2.0 Cardiac Index 1.9 Cardiac Index 2.0 Cardiac Index 2 - Constitutional General appearance: Physical exam revealed a 67-year-old female, obese, on mechanical ventilation, sedated.- Respiratory Detail: Pulmonary: Endotracheal tube seems to be intact, diminished breath sounds and crackles at the bases, respiration is even and nonlabored, mediastinal chest tube noted, left pleural chest tube was also noted. - Cardiovascular Details: Normal S1 and S2, no gallops, positive pericardial rub noted. - Gastrointestinal Gastrointestinal Comment(s): Obese, soft, nontender, no megaly, no rebound, positive bowel sounds. - Genitourinary Genitourinary Comment(s): Mason present - Integumentary Integumentary Comment(s): Skin is warm, no rashes noted. - Neurologic Neurologic Comment(s): Could not be assessed, Currently sedated and being ventilated. Musculoskeletal: Cannot be assessed Psychiatric: Cannot be assessed. Results - Laboratory Findings CBC and BMP: 11/26/17 11:30 11/26/17 11:30 ABG ABG pH 7.34 (7.35-7.45) L 11/26/17 09:51 ABG pCO2 45 mmHg (35-45) 11/26/17 09:51 ABG pO2 79 mmHg (83-108) L 11/26/17 09:51 ABG O2 Saturation 95.5 % (94-97) 11/26/17 09:51 PT/INR, D-dimer PT 11.1 sec (9.0-12.0) 11/26/17 04:22 INR 1.1 (<1.2) 11/26/17 04:22 Abnormal lab findings: Abnormal Labs 11/23/17 11/25/17 11/25/17 08:19 06:01 14:40 WBC RBC Hgb Hct MCH MCHC RDW Plt Count Neutrophils # Lymphocytes # PT 12.5 H INR 1.3 H APTT 34.6 H Fibrinogen ABG pH ABG pCO2 ABG pO2 ABG HCO3 ABG Total CO2 ABG O2 Saturation Sodium Chloride BUN Creatinine Glucose POC Glucose (mg/dL) 103 H Calcium Magnesium AST Alkaline Phosphatase Total Protein Albumin Crossmatch See Detail 11/25/17 11/25/17 11/25/17 14:40 19:08 19:10 WBC 14.4 H RBC 3.32 L Hgb 8.3 L Hct 27.3 L MCH 24.9 L MCHC 30.4 L RDW 18.0 H Plt Count Neutrophils # 12.4 H Lymphocytes # PT INR APTT Fibrinogen 195 L ABG pH ABG pCO2 ABG pO2 ABG HCO3 ABG Total CO2 ABG O2 Saturation Sodium Chloride BUN Creatinine Glucose POC Glucose (mg/dL) 159 H Calcium Magnesium AST Alkaline Phosphatase Total Protein Albumin Crossmatch 11/25/17 11/25/17 11/25/17 19:10 19:10 19:10 WBC 12.2 H RBC Hgb 10.7 L Hct 33.2 L MCH MCHC RDW 16.7 H Plt Count 88 L Neutrophils # 10.3 H Lymphocytes # 0.7 L PT 12.6 H INR 1.3 H APTT Fibrinogen ABG pH ABG pCO2 ABG pO2 ABG HCO3 ABG Total CO2 ABG O2 Saturation Sodium 146 H Chloride 110 H BUN Creatinine Glucose 139 H POC Glucose (mg/dL) Calcium 8.2 L Magnesium 2.4 H AST 92 H Alkaline Phosphatase 37 L Total Protein 4.0 L Albumin 2.2 L Crossmatch 11/25/17 11/25/17 11/25/17 19:38 19:59 21:02 WBC RBC Hgb Hct MCH MCHC RDW Plt Count Neutrophils # Lymphocytes # PT INR APTT Fibrinogen ABG pH 7.29 L ABG pCO2 50 H ABG pO2 209 H ABG HCO3 ABG Total CO2 25 H ABG O2 Saturation 99.0 H Sodium Chloride BUN Creatinine Glucose POC Glucose (mg/dL) 147 H 149 H Calcium Magnesium AST Alkaline Phosphatase Total Protein Albumin Crossmatch 11/25/17 11/25/17 11/25/17 21:58 22:09 22:56 WBC RBC Hgb Hct MCH MCHC RDW Plt Count Neutrophils # Lymphocytes # PT INR APTT Fibrinogen ABG pH ABG pCO2 ABG pO2 144 H ABG HCO3 28 H ABG Total CO2 30 H ABG O2 Saturation 99.0 H Sodium Chloride BUN Creatinine Glucose POC Glucose (mg/dL) 143 H 144 H Calcium Magnesium AST Alkaline Phosphatase Total Protein Albumin Crossmatch 11/25/17 11/26/17 11/26/17 23:13 02:00 02:01 WBC RBC 2.88 L 2.48 L Hgb 7.7 L D 6.5 L* Hct 23.7 L 21.0 L MCH MCHC 30.8 L RDW 16.7 H 17.7 H Plt Count 78 L 101 L Neutrophils # Lymphocytes # 0.7 L PT INR APTT Fibrinogen ABG pH ABG pCO2 ABG pO2 ABG HCO3 ABG Total CO2 ABG O2 Saturation Sodium Chloride BUN Creatinine Glucose POC Glucose (mg/dL) 200 H Calcium Magnesium AST Alkaline Phosphatase Total Protein Albumin Crossmatch 11/26/17 11/26/17 11/26/17 02:59 03:50 03:50 WBC RBC Hgb Hct MCH MCHC RDW Plt Count Neutrophils # Lymphocytes # PT INR APTT Fibrinogen ABG pH ABG pCO2 ABG pO2 ABG HCO3 ABG Total CO2 25 H ABG O2 Saturation 98.0 H Sodium Chloride BUN Creatinine Glucose POC Glucose (mg/dL) 179 H 189 H Calcium Magnesium AST Alkaline Phosphatase Total Protein Albumin Crossmatch 11/26/17 11/26/17 11/26/17 04:22 04:22 04:22 WBC RBC 3.04 L Hgb 7.9 L Hct 25.8 L MCH MCHC 30.7 L RDW 16.3 H Plt Count 126 L Neutrophils # Lymphocytes # PT INR APTT 45.6 H Fibrinogen ABG pH ABG pCO2 ABG pO2 ABG HCO3 ABG Total CO2 ABG O2 Saturation Sodium 147 H Chloride 109 H BUN 22 H Creatinine 1.40 H Glucose 218 H POC Glucose (mg/dL) Calcium 7.8 L Magnesium 2.4 H AST 134 H Alkaline Phosphatase 28 L Total Protein 4.3 L Albumin 2.7 L Crossmatch 11/26/17 11/26/17 11/26/17 04:25 05:01 05:58 WBC RBC Hgb Hct MCH MCHC RDW Plt Count Neutrophils # Lymphocytes # PT INR APTT Fibrinogen ABG pH ABG pCO2 ABG pO2 ABG HCO3 ABG Total CO2 ABG O2 Saturation Sodium Chloride BUN Creatinine Glucose POC Glucose (mg/dL) 244 H 189 H 166 H Calcium Magnesium AST Alkaline Phosphatase Total Protein Albumin Crossmatch 11/26/17 11/26/17 11/26/17 07:16 07:20 09:09 WBC RBC 3.31 L Hgb 8.9 L Hct 28.6 L MCH MCHC RDW 16.3 H Plt Count 97 L Neutrophils # 8.3 H Lymphocytes # PT INR APTT Fibrinogen ABG pH ABG pCO2 ABG pO2 ABG HCO3 ABG Total CO2 ABG O2 Saturation Sodium Chloride BUN Creatinine Glucose POC Glucose (mg/dL) 157 H 125 H Calcium Magnesium AST Alkaline Phosphatase Total Protein Albumin Crossmatch 11/26/17 11/26/17 11/26/17 09:51 10:04 11:11 WBC RBC Hgb Hct MCH MCHC RDW Plt Count Neutrophils # Lymphocytes # PT INR APTT Fibrinogen ABG pH 7.34 L ABG pCO2 ABG pO2 79 L ABG HCO3 ABG Total CO2 26 H ABG O2 Saturation Sodium Chloride BUN Creatinine Glucose POC Glucose (mg/dL) 126 H 123 H Calcium Magnesium AST Alkaline Phosphatase Total Protein Albumin Crossmatch 11/26/17 11/26/17 11/26/17 11:30 11:30 12:08 WBC 11.8 H RBC 3.07 L Hgb 8.4 L Hct 26.4 L MCH MCHC RDW 16.5 H Plt Count 91 L Neutrophils # Lymphocytes # PT INR APTT Fibrinogen ABG pH ABG pCO2 ABG pO2 ABG HCO3 ABG Total CO2 ABG O2 Saturation Sodium 147 H Chloride 110 H BUN 24 H Creatinine 1.47 H Glucose 119 H POC Glucose (mg/dL) 129 H Calcium Magnesium AST Alkaline Phosphatase Total Protein Albumin Crossmatch 11/26/17 13:05 WBC RBC Hgb Hct MCH MCHC RDW Plt Count Neutrophils # Lymphocytes # PT INR APTT Fibrinogen ABG pH ABG pCO2 ABG pO2 ABG HCO3 ABG Total CO2 ABG O2 Saturation Sodium Chloride BUN Creatinine Glucose POC Glucose (mg/dL) 136 H Calcium Magnesium AST Alkaline Phosphatase Total Protein Albumin Crossmatch - Diagnostic Findings Chest x-ray: image reviewed (As noted in HPI.) Assessment and Plan Assessment: Impression: 1 status post CABG and mitral valve replacement. Postoperative day #1 2 status post CABG times one 3 acute profound blood loss and massive blood transfusion as noted in HPI. Unexpected. 4 history of multiple comorbidities including hypertension, severe mitral regurgitation, left subclavian stenosis, paroxysmal atrial fibrillation, history of GI bleeding while on anticoagulation therapy, and history of obesity. Recommendation: Continue present supportive care measures, continue mechanical ventilation, vent settings will be adjusted accordingly, at this point the patient is not stable enough to consider weaning trials, but we'll continue to follow closely. Echocardiogram was just done, results of which are pending. Time with Patient: Greater than 30
[2017-11-26] MEDS ORDERED: ALBUMIN HUMAN 25% 50 ML in EMPTY BAG 1 BAG IVPB ONE (15:00)
[2017-11-26 15:02] LABS: Glucose,Whole Blood 139 mg/dL (75-99)
[2017-11-26 16:09] LABS: Glucose,Whole Blood 132 mg/dL (75-99)
[2017-11-26 17:16] LABS: Glucose,Whole Blood 133 mg/dL (75-99)
--- NOTE | 2017-11-26 17:20 | CONS ---
CONSULTATION DATE OF SERVICE: 11/26/2017. HISTORY: This is a 67-year-old lady with rheumatic mitral valve disease predominant regurgitation, CAD, who underwent aortocoronary bypass surgery with mitral valve replacement yesterday. I am seeing her postprocedure on postop day 1. This lady had a rather stormy intraoperative course, and after the valve was replaced as she was trying to come off the pump, she developed significant bleeding and there was a small tear noted in the lateral aspect of the ventricle that was sutured. The patient, at this time, appears to be reasonably stable considering the events of yesterday. She is in a sinus rhythm, sinus tachycardia at 100 beats per minute. Blood pressure is reasonable. She is on some pressors. She also had a single vein graft to the circumflex marginal. Echo revealed fair systolic function with atypical septal motion, but right side was not very well visualized. Please refer to the detailed consultation that is available from Dr. Escalante from 10/13/2017. This lady has a history of hypertension, chronic atrial fibrillation, some underlying depression, hyperlipidemia, and also hypertensive cardiovascular disease. EXAMINATION: Blood pressure is about correction 100/60, pulse rate is 104 per minute. S1-S2 heard normally. Short systolic murmur is audible. Respiratory noise is audible with rhonchi. Abdomen is soft. The rest of the physical examination is not remarkable. The patient is deeply sedated and SOFTWARE QUALITY TESTER exam was not performed. IMPRESSION: 1. Status post mitral valve replacement with a tissue valve and single vein bypass, stormy intraoperative course. 2. History of rheumatic mitral valve stenosis and regurgitation, regurgitation being the prominent lesion. 3. Hypertension. 4. Hyperlipidemia. RECOMMENDATIONS: I am recommending that we continue supportive management with IV fluids, pressors, and see how she comes along. Prognosis remains guarded. Thank you very much for the consult. MMODL / IJN: [id number] /
[2017-11-26] MEDS ORDERED: BISACODYL 10 MG SUPP RECTAL PRN (17:52)
[2017-11-26] MEDS ORDERED: HYDROcodone/APAP 5-325MG 1 EACH TAB PO PRN ×2 (17:52)
[2017-11-26] MEDS ORDERED: MAGNESIUM HYDROXIDE 2,400 MG/10 ML CUP PO PRN (17:53)
[2017-11-26 18:06] LABS: Glucose,Whole Blood 130 mg/dL (75-99)
[2017-11-26 19:06] LABS: Glucose,Whole Blood 128 mg/dL (75-99)
[2017-11-26 20:06] LABS: Glucose,Whole Blood 129 mg/dL (75-99)
[2017-11-26] MEDS: CLEVIDIPINE BUTYRATE 25 MG in EMPTY BAG 1 BAG IV SCH (20:15)
[2017-11-26] MEDS: SENNOSIDES-DOCUSATE SODIUM 1 EACH TAB PO SCH (20:28)
[2017-11-26] MEDS ORDERED: ESCITALOPRAM 10 MG TAB PO SCH (21:00)
[2017-11-26 21:12] LABS: Glucose,Whole Blood 129 mg/dL (75-99)
--- NOTE | 2017-11-26 21:27 | CONS ---
CONSULTATION DATE OF SERVICE: 11/26/2017 REASON FOR CONSULTATION: 1. Medical management. Patient is status post mitral valve replacement, postoperative day number 1. 2. Mechanical ventilation postoperatively. BRIEF HISTORY: This is a 67-year-old female patient who sees Dr. Madden as an outpatient. She was admitted for mitral valve replacement. Patient was recently diagnosed with critical in- stent stenosis. She underwent mitral valve replacement and coronary artery bypass grafting x1 yesterday. She is postoperative day number 1. Patient had intraoperative complications with bleeding and was requiring massive transfusion for acute blood loss anemia. She was also given significant amount of cryoprecipitate. She received a total of 9 units of packed RBCs and 4 units of fresh frozen plasma, 3 units of platelets and 20 units of cryoprecipitate. She is currently in ICU on mechanical ventilation. PAST MEDICAL HISTORY: According to the records: 1. History of atrial fibrillation. 2. History of hypertension. 3. Hyperlipidemia. 4. Osteoarthritis. 5. Severe mitral stenosis. 6. History of GI bleed. PAST SURGICAL HISTORY: Per records: 1. History of heart catheterization with stent placement. 2. Orthopedic surgery to bilateral carpal tunnel. 3. Left subclavian stent x2. 4. D&C. 5. History of NILDA in the past. SOCIAL HISTORY: The patient is a former smoker. No history of alcohol or drug abuse. FAMILY HISTORY: Significant for valvular heart disease in father and history of hypertension; valvular heart disease and bowel obstruction in mother; history of MT in father. ALLERGIC: CODEINE. MEDICATIONS: 1. Lexapro 10 mg p.o. at bedtime. 2. Aspirin 81 mg p.o. daily. 3. Lipitor 20 mg p.o. at bedtime. 4. Lasix 20 mg p.o. daily. 5. Metoprolol 12.5 mg p.o. b.i.d. 6. Amiodarone 200 mg p.o. daily. 7. Coumadin 3 mg p.o. daily. 8. Aspirin 325 mg daily. REVIEW OF SYSTEMS: Cannot be done; patient is intubated. PHYSICAL EXAMINATION: Again, patient is seen in ICU. She is on mechanical ventilation. VITAL SIGNS: Temperature of 98.2, pulse 107, respiration 16, blood pressure 98/42, oxygen saturation 95%. GENERAL PHYSICAL EXAM: Patient is a 67-year-old obese female on mechanical ventilation. She is sedated. HEENT: Atraumatic, normocephalic. Pupils are reactive to light. Extraocular movements cannot be judged. Buccal mucosa: patient has an ET tube in place. NECK: Supple. No goiter or lymphadenopathy. JVD is negative. No carotid bruit heard. LUNGS: Scattered rhonchi with harsh breath sounds. Heart is tachycardic. Regular rhythm without any murmurs, gallop rhythm. ABDOMEN: Soft, nontender, nondistended. Bowel sounds positive. EXTREMITY EXAMINATION: No edema, clubbing, cyanosis. Skin is warm, dry, without any rashes. Neurological examination cannot be assessed. Patient is on mechanical ventilation. Musculoskeletal cannot be assessed. Psychiatric examination cannot be assessed. LABS: CBC: White blood count of 11.8, hemoglobin 8.4, hematocrit 26.4 and platelet count of 91. Chemical profile: Sodium 147, potassium 4.6, chloride 110, bicarb 26, BUN 24, creatinine 1.47, glucose of 119. ASSESSMENT: 1. Status post coronary artery bypass grafting and mitral valve replacement. Patient is postoperative day number 1. 2. Status post coronary artery bypass grafting x1. 3. Acute profound blood loss anemia requiring massive blood transfusion. 4. History of hypertension. 5. Left subclavian stenosis. 6. Paroxysmal atrial fibrillation. Patient remains intubated with supportive care by the manager english. Vent settings are also managed by the manager english. Echocardiogram was ordered by Cardiothoracic and has been done; results are pending. Continue current plan of care and manage the patient with all the other consultants. MMODL / IJN: [id number] /
[2017-11-26 22:06] LABS: Glucose,Whole Blood 123 mg/dL (75-99)
[2017-11-26 23:12] LABS: Glucose,Whole Blood 129 mg/dL (75-99)
[2017-11-27] MEDS: INSULIN REGULAR 100 UNIT in SODIUM CHLORIDE 0.9% 100 ML IV SCH ×2 (00:03→23:31)
[2017-11-27 00:04] LABS: Glucose,Whole Blood 132 mg/dL (75-99)
[2017-11-27] MEDS: AMIODARONE 450 MG in DEXTROSE 5% IN WATER 250 ML IV SCH ×6 (01:03→12:35)
[2017-11-27 01:09] LABS: Glucose,Whole Blood 128 mg/dL (75-99)
[2017-11-27 02:21] LABS: Glucose,Whole Blood 138 mg/dL (75-99)
[2017-11-27 03:05] LABS: Glucose,Whole Blood 127 mg/dL (75-99)
[2017-11-27] MEDS: IPRATROPIUM-ALBUTEROL 3 ML NEB INHALATION SCH ×8 (03:59→22:58)
[2017-11-27 04:36] LABS: Glucose,Whole Blood 140 mg/dL (75-99)
[2017-11-27 04:57] LABS: Ionized Calcium 4.8 mg/dL (4.5-5.3)
[2017-11-27 05:04] LABS: INR 1.1 (<1.2); Partial Thromboplastin Time 24.2 sec (22.0-30.0); Prothrombin Time 10.9 sec (9.0-12.0)
[2017-11-27 05:05] LABS: Anisocytosis Slight; Basophils % (A) 0 %; Eosinophils % (A) 0 %; HCT 25.1 % (34.0-46.0); Hypochromasia Moderate; Lymphocytes % (A) 7 %; MCH 26.7 pg (25.0-35.0); MCHC 31.8 g/dL (31.0-37.0); MCV 83.9 fL (80.0-100.0); Mean Platelet Volume 9.8; Monocytes % (A) 7 %; Neutrophils # (A) 11.7 k/uL (1.3-7.7); Neutrophils % (A) 83 %; Poikilocytosis Marked; RBC 2.99 m/uL (3.80-5.40); RDW 16.8 % (11.5-15.5); WBC 14.2 k/uL (3.8-10.6)
[2017-11-27 05:08] LABS: Albumin 2.8 g/dL (3.5-5.0); Calcium 8.5 mg/dL (8.4-10.2); Magnesium 2.3 mg/dL (1.6-2.3); Potassium 3.9 mmol/L (3.5-5.1); Total Bilirubin 0.4 mg/dL (0.2-1.3); Total Protein 4.6 g/dL (6.3-8.2)
[2017-11-27 05:10] LABS: Platelet Count 88 k/uL (150-450)
[2017-11-27] MEDS ORDERED: POTASSIUM BICARBONATE/CIT AC 20 MEQ TABLET.EFF NG-TUBE SCH (06:00)
[2017-11-27 06:13] LABS: Glucose,Whole Blood 141 mg/dL (75-99)
--- NOTE | 2017-11-27 06:52 | XR ---
EXAMINATION TYPE: XR chest 1V portable DATE OF EXAM: 11/27/2017 HISTORY: post cardiac surgery. REFERENCE: Previous study dated 11/26/2017. FINDINGS: The patient is ET tube and NG tube remain in place, unchanged in appearance. There has been a midline sternotomy. The heart is enlarged. There are small, bilateral effusions. There is worsening bibasilar airspace di sease. There is vascular congestion without swapnil edema. IMPRESSION: CONTINUING POSTOPERATIVE CHANGE.
[2017-11-27 06:53] LABS: Glucose,Whole Blood 119 mg/dL (75-99)
[2017-11-27 07:58] LABS: ABG Base Excess -1.1 mmol/L; ABG HCO3 23 mmol/L (21-25); ABG Oxygen Saturation 94.3 % (94-97); ABG PCO2 33 mmHg (35-45); ABG PH 7.45 (7.35-7.45); ABG PO2 71 mmHg (83-108); ABG TCO2 24 mmol/L (19-24)
[2017-11-27 08:00] LABS: Glucose,Whole Blood 130 mg/dL (75-99)
[2017-11-27] MEDS: NOREPINEPHRIN 16 MG-0.9%NS PMX 16 MG/250 ML ML IV SCH (08:00)
[2017-11-27] MEDS ORDERED: CALCIUM GLUCONATE 1,000 MG in SODIUM CHLORIDE 0.9% 100 ML IVPB ONE (09:00)
[2017-11-27] MEDS: HEPARIN SODIUM,PORCINE 5,000 UNIT/ML 1 ML VIAL SQ SCH ×3 (09:05→23:19)
[2017-11-27] MEDS: AMIODARONE 200 MG TAB PO SCH ×2 (09:05→20:24)
[2017-11-27] MEDS: ATORVASTATIN 40 MG TAB PO SCH (09:06)
[2017-11-27] MEDS: ASPIRIN 81 MG PO SCH (09:06)
[2017-11-27] MEDS: MUPIROCIN 2% OINT 22 GM TUBE NASAL SCH ×2 (09:07→20:25)
[2017-11-27] MEDS: METOPROLOL TARTRATE 12.5 MG TAB PO SCH ×2 (09:07→20:25)
[2017-11-27] MEDS: PANTOPRAZOLE 40 MG/10 ML VIAL IVP SCH (09:07)
--- NOTE | 2017-11-27 09:09 | ECHOF ---
Referral Reason:LV function, effusion MEASUREMENTS -------- HEIGHT: 162.6 cm WEIGHT: 107.5 kg BP: 99/43 IVSd: 1.2 cm (0.6 - 1.1) LVIDd: 4.0 cm (3.9 - 5.3) LVPWd: 1.4 cm (0.6 - 1.1) IVSs: 1.3 cm LVIDs: 2.6 cm LVPWs: 1.4 cm FINDINGS -------- Resting tachycardia (HR>100bpm). This was a technically difficult study with suboptimal views. Limited Study for assessment of left ventricular function and pericardial effusion. TDS due to open heart and Bandages. The left ventricular size is normal. There is mild concentric left ventricular hypertrophy. Overa ll left ventricular systolic function is mildly impaired with, an EF between 45 - 50 %. The right ventricle is normal in size and function. 3ml of Lumason was utilized for enhancement of images. There is a moderate, generalized pericardial effusion present. CONCLUSIONS -------- 1. Resting tachycardia (HR>100bpm). 2. This was a technically difficult study with suboptimal views. 3. Limited Study for assessment of left ventricular function and pericardial effusion. 4. TDS due to open heart and Bandages. 5. The left ventricular size is normal. 6. There is mild concentric left ventricular hypertrophy. 7. Overall left ventricular systolic function is mildly impaired with, an EF between 45 - 50 %. 8. 3ml of Lumason was utilized for enhancement of images. 9. There is a moderate, generalized pericardial effusion present. TRIM INSTALLER: Myke Ribera RDCS
[2017-11-27 09:47] LABS: Glucose,Whole Blood 144 mg/dL (75-99)
--- NOTE | 2017-11-27 09:54 | P.PN ---
<Jonathon Schofield Wade - Last Filed: 11/27/17 09:12> Subjective Progress Note Date: 11/27/17 Principal diagnosis: Severe mitral valve regurgitation. Coronary artery disease. Preoperative paroxysmal atrial fibrillation on outpatient Coumadin for anticoagulation. Recent hospitalization for lower GI bleed, and duodenal ulcer. History of left subclavian stenosis with stent placement 2014 with recent discovery of critical re-in-stent stenosis. Previous tobacco dependence with preoperative FEV1 60% of predicted. Hypertension. Hyperlipidemia. Depression on Lexapro. Gallbladder disease. Family history of heart disease. Preoperative nasal swab positive for MRSA. Preoperative anemia with hemoglobin of 7.6. POD #2 Mitral valve replacement using a 25 mm Ribera bioprosthetic tissue valve. Coronary artery bypass grafting 1, a reverse greater saphenous vein graft to the obtuse marginal coronary artery. Endoscopic harvesting of the left greater saphenous vein. Modified MAZE procedure. The report wasn't back yet not back in Ligation of the left atrial appendage using a 40 mm AtriClip. Epi- aortic ultrasound. Intraoperative transesophageal echocardiogram. Acute blood loss anemia, an expected outcome given patient's preoperative anemia and intraoperative bleeding. Patient is currently laying in bed with her head elevated. She remains intubated with mechanical ventilator support. She remains sedated on a propofol drip at 15 mcg/kg/m. She is opening her eyes to verbal stimuli, and following verbal commands appropriately moving all 4 extremities appropriately. Remains on norepinephrine drip, Primacor drip, amiodarone drip and vasopressin drip. Objective - Vital Signs Vital signs: Vital Signs Temp 98.2 F 11/26/17 07:00 Pulse 118 H 11/27/17 08:30 Resp 19 11/27/17 08:30 BP 96/70 11/27/17 08:30 Pulse Ox 94 L 11/27/17 08:30 Intake & Output 11/26/17 11/27/17 11/27/17 18:59 06:59 18:59 Intake Total 1603.110 750.001 166.810 Output Total 519 534 65 Balance 1084.110 216.001 101.810 Weight 106.7 kg Intake: IV 1092.1 565.5 39 Albumin Human 25% 50 ml 50 In Empty Bag 1 bag @ 100 mls/hr IVPB ONCE ONE Rx#: [id number] Amiodarone 450 mg In 269.6 Dextrose 5% in Water 250 ml @ 1 MG/MIN 33.33 mls/ hr IV .Q7H31M [facility] Rx#: [id number] CO/CI 70 80 Calcium Gluconate 2,000 100 mg In Sodium Chloride 0.9 % 100 ml @ 100 mls/hr IVPB ONCE PRN Rx#: [id number] Lactated Ringers 1,000 ml 50 @ 50 mls/hr IV .Q20H [facility] Rx#:[id number] Milrinone-D5w Pmx 20 mg 93.5 8.5 In Dextrose/Water 1 100ml .bag @ Per Protocol IV . Q0M [facility] Rx#:[id number] Pressure Bag 99 108 9 Sodium Chloride 0.45% 1, 330 30 000 ml @ 30 mls/hr IV . Q24H [facility] Rx#:[id number] Sodium Chloride 0.9% 500 270 30 ml @ 30 mls/hr IV . [id number] [facility] Rx#:[id number] Sodium Chloride 0.9% 99 90 9 ml @ 0.03 UNITS/MIN 9 mls /hr IV .Q11H7M [facility] with Vasopressin 20 unit Rx#: [id number] Intake, IV Titration 331.010 184.501 127.810 Amount Amiodarone 450 mg In 233.866 158.548 111.622 Dextrose 5% in Water 250 ml @ 1 MG/MIN 33.33 mls/ hr IV .Q7H31M [facility] Rx#: [id number] Clevidipine Butyrate 25 22 mg In Empty Bag 1 bag @ 1 MG/HR 2 mls/hr IV .Q24H [facility] Rx#:[id number] Insulin Regular 100 unit 75.144 25.953 16.188 In Sodium Chloride 0.9% 100 ml @ Per Protocol IV .Q0M [facility] Rx#:[id number] Other 180 Output: Chest Tube Drainage 180 130 30 BL Mediastinal 60 50 20 Left Pleural 120 80 10 Urine 339 404 35 Other: Voiding Method Indwelling Catheter Indwelling Catheter ABP, PAP, CO, CI - Last Documented Arterial Blood Pressure 101/65 Pulmonary Artery Pressure 39/27 Cardiac Output 4.9 Cardiac Index 2.5 - Constitutional Constitutional Comment(s): Patient remains intubated with mechanical ventilator support. She is currently sedated with propofol drip at 15 mcg/kg/m. She is following simple commands appropriately, moving all 4 extremities properly. General appearance: Present: no acute distress, obese - EENT Eyes: Present: PERRLA ENT: Present: hearing grossly normal - Neck Details: Neck is supple, no JVD, no lymphadenopathy. Right IJ Cordis in place with [place]- Cesario. - Respiratory Details: Lung sounds with coarse rhonchi throughout and expiratory wheezes, diminished bilateral bases. Respirations are symmetrical and nonlabored with mechanical ventilator support. Current ventilator settings are as follows: Assist control 16, TV 550, FiO2 55%, PEEP of 8. ET tube #8.0 21 cm at the left. Current ABG results: PH 7.45/pCO2 33/pO2 71/HC03 23/oxygen saturation 94.3/base excess - 1.1. Mediastinal chest tubes and left pleural chest tubes remained to low continuous wall suction -20 cm H2O. No air leak present. Draining thin serosanguineous drainage. Mediastinal chest tubes with 30 mL output in the last 8 hours, 130 mL output in the last 24 hours. Left pleural chest tube with 50 mL output in the last 8 hours, 190 mL output in the last 24 hours. - Cardiovascular Details: Irregular rhythm with regular rate. S1 and S2 present, negative for S3, gallop or murmur. Sternum is stable. Bedside telemetry showing sinus rhythm, sinus tachycardia with frequent PACs, heart rate 110. Atrial and ventricular epicardial pacemaker wires present and connected to bedside pacemaker generator on standby. Current cardiac output 4.2, cardiac index 2.7, PA pressures 38/29, CVP 22, SVR 783. Generalized +1 edema. Knee-high DANITZA hose and sequential compression devices in place to her bilateral lower extremities. Primacor drip remains at 0.03 mcg/kg/m, vasopressin at 0.03 units per minute, norepinephrine at 2 mcg/m, and amiodarone drip at 0.5 mg/m. - Gastrointestinal Gastrointestinal Comment(s): Abdomen is soft, nontender and nondistended. Hypoactive bowel sounds present in all 4 abdominal quadrants. OG tube in place to low continuous wall suction, 125 mL output of green colored drainage in the last 24 hours. - Genitourinary Genitourinary Comment(s): Mason catheter for accurate I&O. Clear calvin urine. Urine output 30-35 mL per hour in the last 8 hours, with 235 mL output in the last 8 hours. - Integumentary Integumentary Comment(s): Midline sternal incision clean dry and approximated. No drainage or redness. Dermabond dressing clean and dry. Left lower leg EVH harvest site clean dry and approximated. No drainage or redness. Skin is warm and dry. Small reddened abrasion to her left buttocks. - Neurologic Neurologic Comment(s): Currently sedated on Diprivan drip at 15 mcg/kg/m. Moving all 4 extremities appropriately with verbal stimuli, opening eyes appropriately with verbal stimuli. - Musculoskeletal Musculoskeletal: Present: generalized weakness - Allied health notes Allied health notes reviewed: nursing - Labs CBC & Chem 7: 11/27/17 04:30 11/27/17 04:30 Labs: Abnormal Lab Results - Last 24 Hours (Table) 11/26/17 11/26/17 11/26/17 Range/Units 09:51 10:04 11:11 WBC (3.8-10.6) k/uL RBC (3.80-5.40) m/uL Hgb (11.4-16.0) gm/dL Hct (34.0-46.0) % RDW (11.5-15.5) % Plt Count (150-450) k/uL Neutrophils # (1.3-7.7) k/uL ABG pH 7.34 L (7.35-7.45) ABG pCO2 (35-45) mmHg ABG pO2 79 L (83-108) mmHg ABG Total CO2 26 H (19-24) mmol/L Sodium (137-145) mmol/L Chloride (98-107) mmol/L BUN (7-17) mg/dL Creatinine (0.52-1.04) mg/dL Glucose (74-99) mg/dL POC Glucose (mg/dL) 126 H 123 H (75-99) mg/dL AST (14-36) U/L Total Protein (6.3-8.2) g/dL Albumin (3.5-5.0) g/dL 11/26/17 11/26/17 11/26/17 Range/Units 11:30 11:30 12:08 WBC 11.8 H (3.8-10.6) k/uL RBC 3.07 L (3.80-5.40) m/uL Hgb 8.4 L (11.4-16.0) gm/dL Hct 26.4 L (34.0-46.0) % RDW 16.5 H (11.5-15.5) % Plt Count 91 L (150-450) k/uL Neutrophils # (1.3-7.7) k/uL ABG pH (7.35-7.45) ABG pCO2 (35-45) mmHg ABG pO2 (83-108) mmHg ABG Total CO2 (19-24) mmol/L Sodium 147 H (137-145) mmol/L Chloride 110 H (98-107) mmol/L BUN 24 H (7-17) mg/dL Creatinine 1.47 H (0.52-1.04) mg/dL Glucose 119 H (74-99) mg/dL POC Glucose (mg/dL) 129 H (75-99) mg/dL AST (14-36) U/L Total Protein (6.3-8.2) g/dL Albumin (3.5-5.0) g/dL 11/26/17 11/26/17 11/26/17 Range/Units 13:05 14:59 16:06 WBC (3.8-10.6) k/uL RBC (3.80-5.40) m/uL Hgb (11.4-16.0) gm/dL Hct (34.0-46.0) % RDW (11.5-15.5) % Plt Count (150-450) k/uL Neutrophils # (1.3-7.7) k/uL ABG pH (7.35-7.45) ABG pCO2 (35-45) mmHg ABG pO2 (83-108) mmHg ABG Total CO2 (19-24) mmol/L Sodium (137-145) mmol/L Chloride (98-107) mmol/L BUN (7-17) mg/dL Creatinine (0.52-1.04) mg/dL Glucose (74-99) mg/dL POC Glucose (mg/dL) 136 H 139 H 132 H (75-99) mg/dL AST (14-36) U/L Total Protein (6.3-8.2) g/dL Albumin (3.5-5.0) g/dL 11/26/17 11/26/17 11/26/17 Range/Units 17:13 18:04 19:03 WBC (3.8-10.6) k/uL RBC (3.80-5.40) m/uL Hgb (11.4-16.0) gm/dL Hct (34.0-46.0) % RDW (11.5-15.5) % Plt Count (150-450) k/uL Neutrophils # (1.3-7.7) k/uL ABG pH (7.35-7.45) ABG pCO2 (35-45) mmHg ABG pO2 (83-108) mmHg ABG Total CO2 (19-24) mmol/L Sodium (137-145) mmol/L Chloride (98-107) mmol/L BUN (7-17) mg/dL Creatinine (0.52-1.04) mg/dL Glucose (74-99) mg/dL POC Glucose (mg/dL) 133 H 130 H 128 H (75-99) mg/dL AST (14-36) U/L Total Protein (6.3-8.2) g/dL Albumin (3.5-5.0) g/dL 11/26/17 11/26/17 11/26/17 Range/Units 20:05 21:10 22:03 WBC (3.8-10.6) k/uL RBC (3.80-5.40) m/uL Hgb (11.4-16.0) gm/dL Hct (34.0-46.0) % RDW (11.5-15.5) % Plt Count (150-450) k/uL Neutrophils # (1.3-7.7) k/uL ABG pH (7.35-7.45) ABG pCO2 (35-45) mmHg ABG pO2 (83-108) mmHg ABG Total CO2 (19-24) mmol/L Sodium (137-145) mmol/L Chloride (98-107) mmol/L BUN (7-17) mg/dL Creatinine (0.52-1.04) mg/dL Glucose (74-99) mg/dL POC Glucose (mg/dL) 129 H 129 H 123 H (75-99) mg/dL AST (14-36) U/L Total Protein (6.3-8.2) g/dL Albumin (3.5-5.0) g/dL 11/26/17 11/27/17 11/27/17 Range/Units 23:10 00:02 01:08 WBC (3.8-10.6) k/uL RBC (3.80-5.40) m/uL Hgb (11.4-16.0) gm/dL Hct (34.0-46.0) % RDW (11.5-15.5) % Plt Count (150-450) k/uL Neutrophils # (1.3-7.7) k/uL ABG pH (7.35-7.45) ABG pCO2 (35-45) mmHg ABG pO2 (83-108) mmHg ABG Total CO2 (19-24) mmol/L Sodium (137-145) mmol/L Chloride (98-107) mmol/L BUN (7-17) mg/dL Creatinine (0.52-1.04) mg/dL Glucose (74-99) mg/dL POC Glucose (mg/dL) 129 H 132 H 128 H (75-99) mg/dL AST (14-36) U/L Total Protein (6.3-8.2) g/dL Albumin (3.5-5.0) g/dL 11/27/17 11/27/17 11/27/17 Range/Units 02:18 03:03 04:30 WBC (3.8-10.6) k/uL RBC (3.80-5.40) m/uL Hgb (11.4-16.0) gm/dL Hct (34.0-46.0) % RDW (11.5-15.5) % Plt Count (150-450) k/uL Neutrophils # (1.3-7.7) k/uL ABG pH (7.35-7.45) ABG pCO2 (35-45) mmHg ABG pO2 (83-108) mmHg ABG Total CO2 (19-24) mmol/L Sodium (137-145) mmol/L Chloride 108 H (98-107) mmol/L BUN 32 H (7-17) mg/dL Creatinine 1.70 H (0.52-1.04) mg/dL Glucose 123 H (74-99) mg/dL POC Glucose (mg/dL) 138 H 127 H (75-99) mg/dL AST 227 H (14-36) U/L Total Protein 4.6 L (6.3-8.2) g/dL Albumin 2.8 L (3.5-5.0) g/dL 11/27/17 11/27/17 11/27/17 Range/Units 04:30 04:34 06:09 WBC 14.2 H (3.8-10.6) k/uL RBC 2.99 L (3.80-5.40) m/uL Hgb 8.0 L (11.4-16.0) gm/dL Hct 25.1 L (34.0-46.0) % RDW 16.8 H (11.5-15.5) % Plt Count 88 L (150-450) k/uL Neutrophils # 11.7 H (1.3-7.7) k/uL ABG pH (7.35-7.45) ABG pCO2 (35-45) mmHg ABG pO2 (83-108) mmHg ABG Total CO2 (19-24) mmol/L Sodium (137-145) mmol/L Chloride (98-107) mmol/L BUN (7-17) mg/dL Creatinine (0.52-1.04) mg/dL Glucose (74-99) mg/dL POC Glucose (mg/dL) 140 H 141 H (75-99) mg/dL AST (14-36) U/L Total Protein (6.3-8.2) g/dL Albumin (3.5-5.0) g/dL 11/27/17 11/27/17 11/27/17 Range/Units 06:52 07:57 07:58 WBC (3.8-10.6) k/uL RBC (3.80-5.40) m/uL Hgb (11.4-16.0) gm/dL Hct (34.0-46.0) % RDW (11.5-15.5) % Plt Count (150-450) k/uL Neutrophils # (1.3-7.7) k/uL ABG pH (7.35-7.45) ABG pCO2 33 L (35-45) mmHg ABG pO2 71 L (83-108) mmHg ABG Total CO2 (19-24) mmol/L Sodium (137-145) mmol/L Chloride (98-107) mmol/L BUN (7-17) mg/dL Creatinine (0.52-1.04) mg/dL Glucose (74-99) mg/dL POC Glucose (mg/dL) 119 H 130 H (75-99) mg/dL AST (14-36) U/L Total Protein (6.3-8.2) g/dL Albumin (3.5-5.0) g/dL Microbiology - Last 24 Hours (Table) 11/26/17 04:00 Gram Stain - Preliminary Sputum Sputum Culture - Preliminary - Imaging and Cardiology Chest x-ray: report reviewed, image reviewed Assessment and Plan (1) Acute blood loss as cause of postoperative anemia Current Visit: Yes Status: Acute Code(s): D62 - ACUTE POSTHEMORRHAGIC ANEMIA SNOMED Code(s): 90329860187236646 (2) CAD (coronary artery disease) Current Visit: Yes Status: Chronic Code(s): I25.10 - ATHSCL HEART DISEASE OF [place] CORONARY ARTERY W/O ANG PCTRS SNOMED Code(s): 12130670 (3) Family history of coronary artery disease Current Visit: Yes Status: Chronic Code(s): Z82.49 - FAMILY HX OF ISCHEM HEART DIS AND OTH DIS OF THE CIRC SYS SNOMED Code(s): 836674662 (4) Hyperlipidemia Current Visit: Yes Status: Chronic Code(s): E78.5 - HYPERLIPIDEMIA, UNSPECIFIED SNOMED Code(s): 98331624 (5) Hypertension Current Visit: Yes Status: Chronic Code(s): I10 - ESSENTIAL (PRIMARY) HYPERTENSION SNOMED Code(s): 03925257 (6) Severe mitral regurgitation Current Visit: Yes Status: Chronic Code(s): I34.0 - NONRHEUMATIC MITRAL ( VALVE) INSUFFICIENCY SNOMED Code(s): 61214118 (7) Stenosis of left subclavian artery Current Visit: Yes Status: Chronic Code(s): I77.1 - STRICTURE OF ARTERY SNOMED Code(s): 630475754 (8) PAD (peripheral artery disease) Current Visit: No Status: Acute Code(s): I73.9 - PERIPHERAL VASCULAR DISEASE , UNSPECIFIED SNOMED Code(s): 373440967 (9) History of GI bleed Current Visit: No Status: Resolved Code(s): Z87.19 - PERSONAL HISTORY OF OTHER DISEASES OF THE DIGESTIVE SYSTEM SNOMED Code(s): 196000381 (10) Paroxysmal atrial fibrillation Current Visit: No Status: Resolved Code(s): I48.0 - PAROXYSMAL ATRIAL FIBRILLATION SNOMED Code(s): 716826262 (11) Elevated aspartate aminotransferase level Current Visit: Yes Status: Acute Code(s): R74.0 - NONSPEC ELEV OF LEVELS OF TRANSAMNS & LACTIC ACID DEHYDRGNSE SNOMED Code(s): 230366493 Plan: 1. Continue Primacor at 0.03 mcg/kg/m, norepinephrine drip, and vasopressin drip. 2. Continue amiodarone drip and oral amiodarone for history of paroxysmal atrial fibrillation on home amiodarone. 3. Mechanical ventilation management per pulmonology, Dr. Rutledge's recommendations. 4. GI/DVT prophylaxis. 5. We will add metoprolol 12.5 mg per OG tube twice a day today. 6. Keep mediastinal and left pleural chest tubes in place today to low continuous wall suction -20 [place] H2O. 7. Will monitor daily labs, and chest x-rays. 8. Continue mupirocin for preoperative MRSA positive nasal swab. 9. Give amiodarone 150 mg IV bolus now for atrial fibrillation with RVR. 10. Patient is currently critical but relatively stable, will continue to monitor very closely. 11. We will give 1 g of calcium gluconate IV piggyback 1 now. 12. We will add heparin 5000 units subcutaneous every 8 hours for DVT prophylaxis. 13. Postoperative limited 2-D echocardiogram shows an ejection fraction of 45- 50%. 14. Continue Lipitor despite elevation in AST. We will monitor closely. 15. Avoid nephrotoxic medications. 16. More recommendations as patient progresses. Time with Patient: Greater than 30 <Dion Back - Last Filed: 11/28/17 13:36> Objective - Vital Signs Vital signs: Vital Signs Temp 98.2 F 11/26/17 07:00 Pulse 116 H 11/28/17 12:15 Resp 16 11/28/17 12:00 BP 115/52 11/27/17 10:00 Pulse Ox 98 11/28/17 12:00 Intake & Output 11/27/17 11/28/17 11/28/17 18:59 06:59 18:59 Intake Total 922.860 866.208 379.828 Output Total 559 362 370 Balance 363.860 504.208 9.828 Weight 106.7 kg 109.7 kg Intake: IV 728 548 354 CO/CI 60 80 120 Dextrose 5% in Water 100 200 ml @ 618 mls/hr IV .Q10M ONE with Amiodarone 150 mg Rx#:[id number] Pressure Bag 108 108 54 Sodium Chloride 0.45% 1, 360 360 180 000 ml @ 30 mls/hr IV . Q24H [facility] Rx#:[id number] Intake, IV Titration 194.860 318.208 25.828 Amount Amiodarone 450 mg In 250 Dextrose 5% in Water 250 ml @ 0.5 MG/MIN 16.66 mls /hr IV .Q15H1M [facility] Rx#: [id number] Amiodarone 450 mg In 111.622 Dextrose 5% in Water 250 ml @ 1 MG/MIN 33.33 mls/ hr IV .Q7H31M [facility] Rx#: [id number] Insulin Regular 100 unit 67.438 18.158 25.828 In Sodium Chloride 0.9% 100 ml @ Per Protocol IV .Q0M [facility] Rx#:[id number] Norepinephrin 16 mg-0.9% 15.8 50.05 Ns Pmx 16 mg In 250 ml @ Titrate IV .Q0M [facility] Rx#: [id number] Output: Chest Tube Drainage 190 20 160 BL Mediastinal 90 20 60 Left Pleural 100 0 100 Urine 369 342 210 Other: Voiding Method Indwelling Catheter Indwelling Catheter Indwelling Catheter ABP, PAP, CO, CI - Last Documented Arterial Blood Pressure 102/56 Pulmonary Artery Pressure 35/24 Cardiac Output 4.9 Cardiac Index 2.5 - Labs CBC & Chem 7: 11/28/17 05:00 11/28/17 05:00 Labs: Abnormal Lab Results - Last 24 Hours (Table) 11/27/17 11/27/17 11/27/17 Range/Units 14:34 15:16 15:58 WBC (3.8-10.6) k/uL RBC (3.80-5.40) m/uL Hgb (11.4-16.0) gm/dL Hct (34.0-46.0) % RDW (11.5-15.5) % Plt Count (150-450) k/uL ABG Total CO2 26 H (19-24) mmol/L ABG O2 Saturation (94-97) % BUN (7-17) mg/dL Creatinine (0.52-1.04) mg/dL Glucose (74-99) mg/dL POC Glucose (mg/dL) 123 H 113 H (75-99) mg/dL Calcium (8.4-10.2) mg/dL Magnesium (1.6-2.3) mg/dL AST (14-36) U/L Total Protein (6.3-8.2) g/dL Albumin (3.5-5.0) g/dL 11/27/17 11/27/17 11/27/17 Range/Units 18:15 20:05 22:26 WBC (3.8-10.6) k/uL RBC (3.80-5.40) m/uL Hgb (11.4-16.0) gm/dL Hct (34.0-46.0) % RDW (11.5-15.5) % Plt Count (150-450) k/uL ABG Total CO2 (19-24) mmol/L ABG O2 Saturation (94-97) % BUN (7-17) mg/dL Creatinine (0.52-1.04) mg/dL Glucose (74-99) mg/dL POC Glucose (mg/dL) 106 H 119 H 135 H (75-99) mg/dL Calcium (8.4-10.2) mg/dL Magnesium (1.6-2.3) mg/dL AST (14-36) U/L Total Protein (6.3-8.2) g/dL Albumin (3.5-5.0) g/dL 11/27/17 11/28/17 11/28/17 Range/Units 23:00 00:22 02:21 WBC (3.8-10.6) k/uL RBC (3.80-5.40) m/uL Hgb (11.4-16.0) gm/dL Hct (34.0-46.0) % RDW (11.5-15.5) % Plt Count (150-450) k/uL ABG Total CO2 (19-24) mmol/L ABG O2 Saturation (94-97) % BUN (7-17) mg/dL Creatinine (0.52-1.04) mg/dL Glucose (74-99) mg/dL POC Glucose (mg/dL) 134 H 121 H 112 H (75-99) mg/dL Calcium (8.4-10.2) mg/dL Magnesium (1.6-2.3) mg/dL AST (14-36) U/L Total Protein (6.3-8.2) g/dL Albumin (3.5-5.0) g/dL 11/28/17 11/28/17 11/28/17 Range/Units 03:08 05:00 05:00 WBC 17.6 H (3.8-10.6) k/uL RBC 2.88 L (3.80-5.40) m/uL Hgb 7.7 L (11.4-16.0) gm/dL Hct 24.7 L (34.0-46.0) % RDW 17.5 H (11.5-15.5) % Plt Count 99 L (150-450) k/uL ABG Total CO2 (19-24) mmol/L ABG O2 Saturation (94-97) % BUN 44 H (7-17) mg/dL Creatinine 1.52 H (0.52-1.04) mg/dL Glucose 110 H (74-99) mg/dL POC Glucose (mg/dL) 111 H (75-99) mg/dL Calcium 8.2 L (8.4-10.2) mg/dL Magnesium 2.5 H (1.6-2.3) mg/dL AST 175 H (14-36) U/L Total Protein 4.9 L (6.3-8.2) g/dL Albumin 2.6 L (3.5-5.0) g/dL 11/28/17 11/28/17 11/28/17 Range/Units 05:17 06:25 08:29 WBC (3.8-10.6) k/uL RBC (3.80-5.40) m/uL Hgb (11.4-16.0) gm/dL Hct (34.0-46.0) % RDW (11.5-15.5) % Plt Count (150-450) k/uL ABG Total CO2 (19-24) mmol/L ABG O2 Saturation (94-97) % BUN (7-17) mg/dL Creatinine (0.52-1.04) mg/dL Glucose (74-99) mg/dL POC Glucose (mg/dL) 125 H 121 H 114 H (75-99) mg/dL Calcium (8.4-10.2) mg/dL Magnesium (1.6-2.3) mg/dL AST (14-36) U/L Total Protein (6.3-8.2) g/dL Albumin (3.5-5.0) g/dL 11/28/17 11/28/17 11/28/17 Range/Units 08:41 08:54 09:54 WBC (3.8-10.6) k/uL RBC (3.80-5.40) m/uL Hgb (11.4-16.0) gm/dL Hct (34.0-46.0) % RDW (11.5-15.5) % Plt Count (150-450) k/uL ABG Total CO2 26 H (19-24) mmol/L ABG O2 Saturation 98.1 H (94-97) % BUN (7-17) mg/dL Creatinine (0.52-1.04) mg/dL Glucose (74-99) mg/dL POC Glucose (mg/dL) 120 H 132 H (75-99) mg/dL Calcium (8.4-10.2) mg/dL Magnesium (1.6-2.3) mg/dL AST (14-36) U/L Total Protein (6.3-8.2) g/dL Albumin (3.5-5.0) g/dL 11/28/17 11/28/17 Range/Units 11:11 11:49 WBC (3.8-10.6) k/uL RBC (3.80-5.40) m/uL Hgb (11.4-16.0) gm/dL Hct (34.0-46.0) % RDW (11.5-15.5) % Plt Count (150-450) k/uL ABG Total CO2 (19-24) mmol/L ABG O2 Saturation (94-97) % BUN (7-17) mg/dL Creatinine (0.52-1.04) mg/dL Glucose (74-99) mg/dL POC Glucose (mg/dL) 117 H 122 H (75-99) mg/dL Calcium (8.4-10.2) mg/dL Magnesium (1.6-2.3) mg/dL AST (14-36) U/L Total Protein (6.3-8.2) g/dL Albumin (3.5-5.0) g/dL Microbiology - Last 24 Hours (Table) 11/26/17 04:00 Gram Stain - Final Sputum Sputum Culture - Final Assessment and Plan Plan: The patient was seen and examined. I agree with the above assessment and plan. Overall she remains stable. We will continue to wean the ventilator as tolerated. We will try to come down on the PEEP today. We will also wean her pressor agents. We will start with the vasopressin. Her creatinine is mildly elevated and she continues to make adequate urine. We will continue to monitor it for now. She did develop atrial fibrillation with rapid ventricular response which is currently being treated with amiodarone. We will keep her chest tubes today. I did speak with the patient's family to provide them with a complete up-to-date on her care.
[2017-11-27] MEDS ORDERED: DEXTROSE 5% IN WATER 100 ML with AMIODARONE 150 MG IV ONE ×3 (10:00→16:45)
[2017-11-27 10:50] LABS: Glucose,Whole Blood 130 mg/dL (75-99)
[2017-11-27] MEDS: SODIUM CHLORIDE 0.45% 1,000 ML IV SCH (10:56)
[2017-11-27] MEDS: SODIUM CHLORIDE 0.9% 99 ML with VASOPRESSIN 20 UNIT IV SCH ×2 (11:25)
[2017-11-27] MEDS: CHLORHEXIDINE GLUCONATE 15 ML CUP MUCOUS MEM SCH ×2 (11:25→20:24)
[2017-11-27 11:52] LABS: Glucose,Whole Blood 126 mg/dL (75-99)
[2017-11-27 12:59] LABS: ABG Base Excess -0.5 mmol/L; ABG HCO3 24 mmol/L (21-25); ABG PCO2 35 mmHg (35-45); ABG PH 7.44 (7.35-7.45); ABG PO2 88 mmHg (83-108); ABG TCO2 25 mmol/L (19-24)
[2017-11-27 13:00] LABS: ABG Oxygen Saturation 96.5 % (94-97)
[2017-11-27 13:23] LABS: Glucose,Whole Blood 120 mg/dL (75-99)
--- NOTE | 2017-11-27 13:28 | P.PN ---
Subjective Progress Note Date: 11/27/17 Principal diagnosis: Status post CABG 1, mitral valve replacement, postoperative day #2 This is a 67-year-old female with history of severe mitral regurgitation, paroxysmal atrial fibrillation, recent admission for lower GI bleeding and duodenal ulcer, history of left subclavian stenosis and stent placement in 2014 , recently discovered to have critical in-stent stenosis, patient underwent mitral valve replacement yesterday and CABG 1 with reverse saphenous vein graft to the obtuse marginal artery, Maze procedure, and ligation of the left atrial appendage. Patient had intraoperative complications with intraoperative bleeding requiring massive transfusion for acute blood loss, she also received significant amount of cryoprecipitate. He received a total of 9 units of packed RBCs, 4 units of fresh was a plasma, 3 units of platelets, and 20 units of cryoprecipitate. Patient was stabilized hemodynamically, sent to the ICU on mechanical ventilation, and she remains on mechanical ventilation since last night. Ventilator settings were noted, she is presently on tidal volume of 550 , assist control rate of 16, FiO2 of 55%, and PEEP of 8. ABG this morning showed a pO2 of 79 pCO2 of 45 pH of 7.34. Hence her tidal volume was increased from 500-550. Chest x-ray this morning showed postsurgical changes, small bilateral effusions and venous congestion. Lines and endotracheal tube were noted to be in proper position patient is still requiring significant medications including Primacor, norepinephrine, and cardiac index is in the range of 2.0. Clearly at this point the patient is not stable enough to address weaning and extubation at this point. All labs were reviewed, her BUN is 24 creatinine is 1.47. Baseline creatinine is 0.84. Patient was reevaluated today on 11/27/2017, remains on mechanical ventilation, remains with hemodynamic instability requiring significant amount of pressors and inotropes. As I was evaluating the patient, patient went into atrial fibrillation and RVR, but converted on her own, she was already on amiodarone drip. Her blood pressure was fluctuating, however the right radial arterial line was not functioning properly, hence we removed it and placed a right brachial arterial line. Chest x-ray was reviewed, endotracheal tube seems to be in proper position, heart is definitely enlarged, small bilateral pleural effusions are noted, and worsening bibasilar opacities with vascular congestion/ interstitial edema is suspected. Her ABG is marginal. With pO2 of 88 pCO2 of 35 pH of 7.44 and this was on 55% FiO2 and PEEP of 8. We'll try to go down on the FiO2 to 50%, and hopefully get the PEEP down from 8-5. Patient remains on propofol at 15 mcg/kg/m, opens eyes to verbal stimuli, moving 4 extremities, she is still on norepinephrine drip, Primacor, amiodarone, and vasopressin. Cardiac index is about 2.2 today. CBC showed a hemoglobin of 8.0. Platelets are 88,000. Kidney functioning is a bit worse with BUN 32 and creatinine 1.70, baseline creatinine is 0.84 Objective - Vital Signs Vital signs: Vital Signs Temp 98.2 F 11/26/17 07:00 Pulse 141 H 11/27/17 13:15 Resp 19 11/27/17 13:15 BP 115/52 11/27/17 10:00 Pulse Ox 99 11/27/17 13:15 Intake & Output 11/26/17 11/27/17 11/27/17 18:59 06:59 18:59 Intake Total 1603.110 750.001 630.810 Output Total 519 534 315 Balance 1084.110 216.001 315.810 Weight 106.7 kg 106.7 kg Intake: IV 1092.1 565.5 503 Albumin Human 25% 50 ml 50 In Empty Bag 1 bag @ 100 mls/hr IVPB ONCE ONE Rx#: [id number] Amiodarone 450 mg In 269.6 Dextrose 5% in Water 250 ml @ 1 MG/MIN 33.33 mls/ hr IV .Q7H31M [facility] Rx#: [id number] CO/CI 70 80 30 Calcium Gluconate 2,000 100 mg In Sodium Chloride 0.9 % 100 ml @ 100 mls/hr IVPB ONCE PRN Rx#: [id number] Dextrose 5% in Water 100 200 ml @ 618 mls/hr IV .Q10M ONE with Amiodarone 150 mg Rx#:[id number] Lactated Ringers 1,000 ml 50 @ 50 mls/hr IV .Q20H [facility] Rx#:[id number] Milrinone-D5w Pmx 20 mg 93.5 8.5 In Dextrose/Water 1 100ml .bag @ Per Protocol IV . Q0M [facility] Rx#:[id number] Pressure Bag 99 108 63 Sodium Chloride 0.45% 1, 330 210 000 ml @ 30 mls/hr IV . Q24H [facility] Rx#:[id number] Sodium Chloride 0.9% 500 270 30 ml @ 30 mls/hr IV . [id number] [facility] Rx#:[id number] Sodium Chloride 0.9% 99 90 9 ml @ 0.03 UNITS/MIN 9 mls /hr IV .Q11H7M [facility] with Vasopressin 20 unit Rx#: [id number] Intake, IV Titration 331.010 184.501 127.810 Amount Amiodarone 450 mg In 233.866 158.548 111.622 Dextrose 5% in Water 250 ml @ 1 MG/MIN 33.33 mls/ hr IV .Q7H31M [facility] Rx#: [id number] Clevidipine Butyrate 25 22 mg In Empty Bag 1 bag @ 1 MG/HR 2 mls/hr IV .Q24H [facility] Rx#:[id number] Insulin Regular 100 unit 75.144 25.953 16.188 In Sodium Chloride 0.9% 100 ml @ Per Protocol IV .Q0M [facility] Rx#:[id number] Other 180 Output: Chest Tube Drainage 180 130 90 BL Mediastinal 60 50 50 Left Pleural 120 80 40 Urine 339 404 225 Other: Voiding Method Indwelling Catheter Indwelling Catheter Indwelling Catheter ABP, PAP, CO, CI - Last Documented Arterial Blood Pressure 134/73 Pulmonary Artery Pressure 40/31 Cardiac Output 4 Cardiac Index 2.0 - Exam General appearance: Physical exam revealed a 67-year-old female, obese, on mechanical ventilation, sedated.- Respiratory Detail: Pulmonary: Endotracheal tube seems to be intact, diminished breath sounds and crackles at the bases, respiration is even and nonlabored, mediastinal chest tube noted, left pleural chest tube was also noted. - Cardiovascular Details: Normal S1 and S2, no gallops, positive pericardial rub noted. - Gastrointestinal Gastrointestinal Comment(s): Obese, soft, nontender, no megaly, no rebound, positive bowel sounds. - Genitourinary Genitourinary Comment(s): Mason present - Integumentary Integumentary Comment(s): Skin is warm, no rashes noted. - Neurologic Neurologic Comment(s): Could not be fully assessed, however off sedation, patient was noted to move all her extremities, and following simple instructions. Musculoskeletal: As noted above Psychiatric: Cannot be assessed. - Labs CBC & Chem 7: 11/27/17 04:30 11/27/17 04:30 Labs: Abnormal Lab Results - Last 24 Hours (Table) 11/26/17 11/26/17 11/26/17 Range/Units 14:59 16:06 17:13 WBC (3.8-10.6) k/uL RBC (3.80-5.40) m/uL Hgb (11.4-16.0) gm/dL Hct (34.0-46.0) % RDW (11.5-15.5) % Plt Count (150-450) k/uL Neutrophils # (1.3-7.7) k/uL ABG pCO2 (35-45) mmHg ABG pO2 (83-108) mmHg ABG Total CO2 (19-24) mmol/L Chloride (98-107) mmol/L BUN (7-17) mg/dL Creatinine (0.52-1.04) mg/dL Glucose (74-99) mg/dL POC Glucose (mg/dL) 139 H 132 H 133 H (75-99) mg/dL AST (14-36) U/L Total Protein (6.3-8.2) g/dL Albumin (3.5-5.0) g/dL 11/26/17 11/26/17 11/26/17 Range/Units 18:04 19:03 20:05 WBC (3.8-10.6) k/uL RBC (3.80-5.40) m/uL Hgb (11.4-16.0) gm/dL Hct (34.0-46.0) % RDW (11.5-15.5) % Plt Count (150-450) k/uL Neutrophils # (1.3-7.7) k/uL ABG pCO2 (35-45) mmHg ABG pO2 (83-108) mmHg ABG Total CO2 (19-24) mmol/L Chloride (98-107) mmol/L BUN (7-17) mg/dL Creatinine (0.52-1.04) mg/dL Glucose (74-99) mg/dL POC Glucose (mg/dL) 130 H 128 H 129 H (75-99) mg/dL AST (14-36) U/L Total Protein (6.3-8.2) g/dL Albumin (3.5-5.0) g/dL 11/26/17 11/26/17 11/26/17 Range/Units 21:10 22:03 23:10 WBC (3.8-10.6) k/uL RBC (3.80-5.40) m/uL Hgb (11.4-16.0) gm/dL Hct (34.0-46.0) % RDW (11.5-15.5) % Plt Count (150-450) k/uL Neutrophils # (1.3-7.7) k/uL ABG pCO2 (35-45) mmHg ABG pO2 (83-108) mmHg ABG Total CO2 (19-24) mmol/L Chloride (98-107) mmol/L BUN (7-17) mg/dL Creatinine (0.52-1.04) mg/dL Glucose (74-99) mg/dL POC Glucose (mg/dL) 129 H 123 H 129 H (75-99) mg/dL AST (14-36) U/L Total Protein (6.3-8.2) g/dL Albumin (3.5-5.0) g/dL 11/27/17 11/27/17 11/27/17 Range/Units 00:02 01:08 02:18 WBC (3.8-10.6) k/uL RBC (3.80-5.40) m/uL Hgb (11.4-16.0) gm/dL Hct (34.0-46.0) % RDW (11.5-15.5) % Plt Count (150-450) k/uL Neutrophils # (1.3-7.7) k/uL ABG pCO2 (35-45) mmHg ABG pO2 (83-108) mmHg ABG Total CO2 (19-24) mmol/L Chloride (98-107) mmol/L BUN (7-17) mg/dL Creatinine (0.52-1.04) mg/dL Glucose (74-99) mg/dL POC Glucose (mg/dL) 132 H 128 H 138 H (75-99) mg/dL AST (14-36) U/L Total Protein (6.3-8.2) g/dL Albumin (3.5-5.0) g/dL 11/27/17 11/27/17 11/27/17 Range/Units 03:03 04:30 04:30 WBC 14.2 H (3.8-10.6) k/uL RBC 2.99 L (3.80-5.40) m/uL Hgb 8.0 L (11.4-16.0) gm/dL Hct 25.1 L (34.0-46.0) % RDW 16.8 H (11.5-15.5) % Plt Count 88 L (150-450) k/uL Neutrophils # 11.7 H (1.3-7.7) k/uL ABG pCO2 (35-45) mmHg ABG pO2 (83-108) mmHg ABG Total CO2 (19-24) mmol/L Chloride 108 H (98-107) mmol/L BUN 32 H (7-17) mg/dL Creatinine 1.70 H (0.52-1.04) mg/dL Glucose 123 H (74-99) mg/dL POC Glucose (mg/dL) 127 H (75-99) mg/dL AST 227 H (14-36) U/L Total Protein 4.6 L (6.3-8.2) g/dL Albumin 2.8 L (3.5-5.0) g/dL 11/27/17 11/27/17 11/27/17 Range/Units 04:34 06:09 06:52 WBC (3.8-10.6) k/uL RBC (3.80-5.40) m/uL Hgb (11.4-16.0) gm/dL Hct (34.0-46.0) % RDW (11.5-15.5) % Plt Count (150-450) k/uL Neutrophils # (1.3-7.7) k/uL ABG pCO2 (35-45) mmHg ABG pO2 (83-108) mmHg ABG Total CO2 (19-24) mmol/L Chloride (98-107) mmol/L BUN (7-17) mg/dL Creatinine (0.52-1.04) mg/dL Glucose (74-99) mg/dL POC Glucose (mg/dL) 140 H 141 H 119 H (75-99) mg/dL AST (14-36) U/L Total Protein (6.3-8.2) g/dL Albumin (3.5-5.0) g/dL 11/27/17 11/27/17 11/27/17 Range/Units 07:57 07:58 09:45 WBC (3.8-10.6) k/uL RBC (3.80-5.40) m/uL Hgb (11.4-16.0) gm/dL Hct (34.0-46.0) % RDW (11.5-15.5) % Plt Count (150-450) k/uL Neutrophils # (1.3-7.7) k/uL ABG pCO2 33 L (35-45) mmHg ABG pO2 71 L (83-108) mmHg ABG Total CO2 (19-24) mmol/L Chloride (98-107) mmol/L BUN (7-17) mg/dL Creatinine (0.52-1.04) mg/dL Glucose (74-99) mg/dL POC Glucose (mg/dL) 130 H 144 H (75-99) mg/dL AST (14-36) U/L Total Protein (6.3-8.2) g/dL Albumin (3.5-5.0) g/dL 11/27/17 11/27/17 11/27/17 Range/Units 10:48 11:49 12:57 WBC (3.8-10.6) k/uL RBC (3.80-5.40) m/uL Hgb (11.4-16.0) gm/dL Hct (34.0-46.0) % RDW (11.5-15.5) % Plt Count (150-450) k/uL Neutrophils # (1.3-7.7) k/uL ABG pCO2 (35-45) mmHg ABG pO2 (83-108) mmHg ABG Total CO2 25 H (19-24) mmol/L Chloride (98-107) mmol/L BUN (7-17) mg/dL Creatinine (0.52-1.04) mg/dL Glucose (74-99) mg/dL POC Glucose (mg/dL) 130 H 126 H (75-99) mg/dL AST (14-36) U/L Total Protein (6.3-8.2) g/dL Albumin (3.5-5.0) g/dL Microbiology - Last 24 Hours (Table) 11/26/17 04:00 Gram Stain - Preliminary Sputum Sputum Culture - Preliminary Assessment and Plan Assessment: Impression: 1 status post CABG and mitral valve replacement. Postoperative day #2 2 status post CABG times one 3 acute profound blood loss and massive blood transfusion as noted in HPI. Unexpected. 4 history of multiple comorbidities including hypertension, severe mitral regurgitation, left subclavian stenosis, paroxysmal atrial fibrillation, history of GI bleeding while on anticoagulation therapy, and history of obesity. Recommendation: Continue present supportive care measures, continue mechanical ventilation, vent settings will be adjusted accordingly, we'll try to optimize the overall hemodynamic status of this patient, may give her a weaning trial later this afternoon, ABG remains very marginal her pO2 was in the low 70s at 55 % and PEEP of 8 earlier today. Remains on multiple pressors and inotropes, and she is experiencing intermittent episodes of A. fib with RVR. We'll follow closely. Critical care time is 35 minutes not including the time for placement of arterial line. Time with Patient: Greater than 30
--- NOTE | 2017-11-27 14:13 | PCN ---
PROCEDURE NOTE The operative report is placement of the right brachial arterial line. PREOPERATIVE DIAGNOSIS: Status post CABG and mitral valve replacement with postoperative hemodynamic instability. POSTOPERATIVE DIAGNOSIS: Status post CABG and mitral valve replacement with postoperative hemodynamic instability. ANESTHESIA USED: None deployed. PROCEDURE: The patient was placed in a supine position. The right upper extremity was rested on a table at the bedside. The right brachial area was prepared in a sterile fashion and drapes were applied. The right brachial artery was palpated, cannulated, and a guidewire was placed. A Cook catheter was inserted over the guidewire, and the guidewire was removed. Good blood flow and good waveform were noted. The line was secured using 3.0 silk sutures. No evidence of any complications. MMODL / IJN: [id number] /
[2017-11-27 14:36] LABS: ABG Base Excess 0.3 mmol/L; ABG HCO3 24 mmol/L (21-25); ABG PCO2 36 mmHg (35-45); ABG PH 7.45 (7.35-7.45); ABG PO2 86 mmHg (83-108); ABG TCO2 26 mmol/L (19-24)
[2017-11-27 14:38] LABS: ABG Oxygen Saturation 96.6 % (94-97)
[2017-11-27] MEDS: MILRINONE-D5W PMX 20 MG in DEXTROSE/WATER 1 100ML.BAG IV SCH (15:11)
[2017-11-27] MEDS: PROPOFOL 1,000 MG in EMPTY BAG 1 BAG IV SCH (15:13)
[2017-11-27 15:47] LABS: Glucose,Whole Blood 123 mg/dL (75-99)
[2017-11-27 16:00] LABS: Glucose,Whole Blood 113 mg/dL (75-99)
--- NOTE | 2017-11-27 17:09 | PN ---
PROGRESS NOTE This is a lady who had a stormy intraoperative course with mitral valve replacement and single vein graft to the circumflex. She is at this time in atrial flutter with a 2:1 block. She is on Primacor, vasopressin, Levophed, and also amiodarone drips. Hemodynamically, she is somewhat unstable. Rhythm mcguire, she has been in sinus rhythm earlier today but now in atrial flutter with a 2:1 block. She is making urine about 30 to 40 mL/hour. Prognosis remains guarded. Blood pressure is about 128/70, pulse rate is about 140 per minute. S1-S2 heard normally but distantly. Lungs reveal bilateral air entry. The patient is deeply sedated on the ventilator. From a cardiac standpoint, if it is okay with the cardiac surgeon, we should consider cardioversion if the rhythm persists in this way. Apparently, if it is a transient phenomenon IV amiodarone is sufficient and she is already on it. Patient is also on a small dose of beta krunal. Prognosis remains guarded. I would recommend electrical cardioversion if she does not convert to sinus rhythm. MMODL / IJN: [id number] /
[2017-11-27 17:39] LABS: Glucose,Whole Blood 98 mg/dL (75-99)
[2017-11-27 18:45] LABS: Glucose,Whole Blood 106 mg/dL (75-99)
--- NOTE | 2017-11-27 19:01 | PN ---
PROGRESS NOTE DATE OF SERVICE: 11/27/2017 Patient is status post coronary artery bypass grafting and mitral valve replacement, remains in ICU, remains on mechanical ventilation. VITAL SIGNS: Temperature 98.2, pulse 141, respirations 19, blood pressure 115/52, O2 saturation 99%. The patient is a 67-year-old obese female who remains on mechanical ventilation. HEENT: Atraumatic, normocephalic. Pupils are sluggish, but equal. Buccal mucosa is fair. Neck is supple. No goiter or lymphadenopathy. JVD is negative. No carotid bruit heard. Lungs are clear to auscultate. No rales, rhonchi or wheezes. Heart is regular rate and rhythm without any murmurs or gallop rhythm. Abdomen is soft, obese, nontender, nondistended. Bowel sounds positive. EXTREMITIES: No edema, clubbing, cyanosis. PSYCHIATRIC AND NEUROLOGICAL: Cannot be assessed. LABS: White blood count 14.2, hemoglobin 8.2, hematocrit 25.1 and platelet count of 88. Sodium 145, potassium 3.9, chloride 100, bicarb 24, BUN 32, creatinine 1.7, glucose 123. ASSESSMENT: 1. Status post coronary artery bypass grafting with mitral valve replacement, postoperative day #2. 2. Status post coronary artery bypass grafting x1. 3. Acute profound blood loss anemia secondary to requiring blood transfusion. 4. History of hypertension. 5. Severe mitral regurgitation. 6. Left subclavian stenosis. 7. Paroxysmal atrial fibrillation. The patient remains on mechanical ventilation. Plan is to continue hemodynamic support. Continue nutritional support. The patient is having intermittent episodes of A. fib. with RVR, remains on multiple pressors. [employer] following. MMODL / IJN: [id number] /
[2017-11-27 19:11] LABS: Glucose,Whole Blood 95 mg/dL (75-99)
[2017-11-27 20:07] LABS: Glucose,Whole Blood 119 mg/dL (75-99)
[2017-11-27] MEDS: SENNOSIDES-DOCUSATE SODIUM 1 EACH TAB PO SCH (20:27)
[2017-11-27 22:28] LABS: Glucose,Whole Blood 135 mg/dL (75-99)
[2017-11-27 23:03] LABS: Glucose,Whole Blood 134 mg/dL (75-99)
[2017-11-28 00:24] LABS: Glucose,Whole Blood 121 mg/dL (75-99)
[2017-11-28 02:22] LABS: Glucose,Whole Blood 112 mg/dL (75-99)
[2017-11-28] MEDS: SODIUM CHLORIDE 0.9% 99 ML with VASOPRESSIN 20 UNIT IV SCH ×4 (02:23→11:38)
[2017-11-28 03:10] LABS: Glucose,Whole Blood 111 mg/dL (75-99)
[2017-11-28] MEDS: IPRATROPIUM-ALBUTEROL 3 ML NEB INHALATION SCH ×6 (04:11→23:09)
[2017-11-28 05:19] LABS: Glucose,Whole Blood 125 mg/dL (75-99)
[2017-11-28 05:41] LABS: Anisocytosis Slight; HCT 24.7 % (34.0-46.0); HGB 7.7 gm/dL (11.4-16.0); Hypochromasia Moderate; MCH 26.6 pg (25.0-35.0); MCV 85.8 fL (80.0-100.0); Mean Platelet Volume 9.1; Poikilocytosis Moderate; RBC 2.88 m/uL (3.80-5.40); RDW 17.5 % (11.5-15.5); WBC 17.6 k/uL (3.8-10.6)
[2017-11-28 06:01] LABS: INR 1.1 (<1.2); Prothrombin Time 10.3 sec (9.0-12.0)
[2017-11-28 06:04] LABS: Platelet Count 99 k/uL (150-450)
[2017-11-28] MEDS: AMIODARONE 450 MG in DEXTROSE 5% IN WATER 250 ML IV SCH ×2 (06:06)
[2017-11-28 06:20] LABS: Ionized Calcium 4.8 mg/dL (4.5-5.3)
[2017-11-28 06:27] LABS: Glucose,Whole Blood 121 mg/dL (75-99)
[2017-11-28 06:31] LABS: Albumin 2.6 g/dL (3.5-5.0); Calcium 8.2 mg/dL (8.4-10.2); Magnesium 2.5 mg/dL (1.6-2.3); Phosphorus 4.4 mg/dL (2.5-4.5); Potassium 3.9 mmol/L (3.5-5.1); Total Bilirubin 0.7 mg/dL (0.2-1.3); Total Protein 4.9 g/dL (6.3-8.2)
--- NOTE | 2017-11-28 06:56 | XR ---
EXAMINATION TYPE: XR chest 1V portable DATE OF EXAM: 11/28/2017 HISTORY: post cardiac surgery. REFERENCE: Previous study dated 11/27/2017. FINDINGS: There has been a midline sternotomy. The patient is ET tube and NG tube remain in place, un changed in appearance. There is a [place]-Cesario catheter in place via a right internal jugular approach. Its tip is in the pulmonary outflow tract. There is a left pleural drain in place. There continues be bibasilar airspace disease. There are bilateral effusions. The heart is enlarged. There is vascular congestion. The overall appearance may have worsened slightly from previous. IMPRESSION: WORSENING BIBASILAR OPACITIES, LIKELY REPRESENTING COMBINATION OF ATELECTASIS AND EFFUSION.
[2017-11-28] MEDS ORDERED: POTASSIUM BICARBONATE/CIT AC 20 MEQ TABLET.EFF NG-TUBE SCH (07:00)
[2017-11-28 08:32] LABS: Glucose,Whole Blood 114 mg/dL (75-99)
[2017-11-28 08:42] LABS: ABG Base Excess 1.4 mmol/L; ABG HCO3 25 mmol/L (21-25); ABG Oxygen Saturation 98.1 % (94-97); ABG PCO2 36 mmHg (35-45); ABG PH 7.45 (7.35-7.45); ABG PO2 107 mmHg (83-108); ABG TCO2 26 mmol/L (19-24)
[2017-11-28 08:55] LABS: Glucose,Whole Blood 120 mg/dL (75-99)
[2017-11-28] MEDS: HEPARIN SODIUM,PORCINE 5,000 UNIT/ML 1 ML VIAL SQ SCH ×2 (09:26→16:51)
[2017-11-28] MEDS: ASPIRIN 81 MG PO SCH (09:27)
[2017-11-28] MEDS: ATORVASTATIN 40 MG TAB PO SCH (09:27)
[2017-11-28] MEDS: AMIODARONE 200 MG TAB PO SCH ×2 (09:27→20:42)
[2017-11-28] MEDS: CHLORHEXIDINE GLUCONATE 15 ML CUP MUCOUS MEM SCH ×2 (09:27→20:41)
[2017-11-28] MEDS: METOPROLOL TARTRATE 12.5 MG TAB PO SCH ×2 (09:27→20:41)
[2017-11-28] MEDS: PANTOPRAZOLE 40 MG/10 ML VIAL IVP SCH (09:28)
[2017-11-28] MEDS: MUPIROCIN 2% OINT 22 GM TUBE NASAL SCH ×2 (09:28→20:41)
[2017-11-28 09:55] LABS: Glucose,Whole Blood 132 mg/dL (75-99)
[2017-11-28 11:13] LABS: Glucose,Whole Blood 117 mg/dL (75-99)
[2017-11-28] MEDS: SODIUM CHLORIDE 0.45% 1,000 ML IV SCH (11:38)
[2017-11-28 11:51] LABS: Glucose,Whole Blood 122 mg/dL (75-99)
[2017-11-28] MEDS: INSULIN REGULAR 100 UNIT in SODIUM CHLORIDE 0.9% 100 ML IV SCH (12:19)
[2017-11-28] MEDS ORDERED: FUROSEMIDE 10 MG/ML 4 ML VIAL IV STA (12:37)
--- NOTE | 2017-11-28 12:41 | P.PN ---
<Jonathon Schofield Wade - Last Filed: 11/28/17 12:38> Subjective Progress Note Date: 11/28/17 Principal diagnosis: Severe mitral valve regurgitation. Coronary artery disease. Preoperative paroxysmal atrial fibrillation on outpatient Coumadin for anticoagulation. Recent hospitalization for lower GI bleed, and duodenal ulcer. History of left subclavian stenosis with stent placement 2014 with recent discovery of critical re-in-stent stenosis. Previous tobacco dependence with preoperative FEV1 60% of predicted. Hypertension. Hyperlipidemia. Depression on Lexapro. Gallbladder disease. Family history of heart disease. Preoperative nasal swab positive for MRSA. Preoperative anemia with hemoglobin of 7.6. POD #3 Mitral valve replacement using a 25 mm Ribera bioprosthetic tissue valve. Coronary artery bypass grafting 1, a reverse greater saphenous vein graft to the obtuse marginal coronary artery. Endoscopic harvesting of the left greater saphenous vein. Modified MAZE procedure. The report wasn't back yet not back in Ligation of the left atrial appendage using a 40 mm AtriClip. Epi- aortic ultrasound. Intraoperative transesophageal echocardiogram. Acute blood loss anemia, an expected outcome given patient's preoperative anemia and intraoperative bleeding. Patient is currently laying in bed with her head elevated. She remains intubated with mechanical ventilator support. She remains sedated on a propofol drip at 25 mcg/kg/m. She is opening her eyes to verbal stimuli, and following verbal commands appropriately moving all 4 extremities appropriately. Remains on norepinephrine drip, Primacor drip, and amiodarone drip. Her vasopressin drip has been on hold since around 4 AM today. The patient was given a sedation holiday this a.m. and a weaning trial was attempted although was unsuccessful due to her asynchronous respirations with mechanical ventilator support. Objective - Vital Signs Vital signs: Vital Signs Temp 98.2 F 11/26/17 07:00 Pulse 121 H 11/28/17 09:00 Resp 21 11/28/17 09:00 BP 115/52 11/27/17 10:00 Pulse Ox 98 11/28/17 09:00 Intake & Output 11/27/17 11/28/17 11/28/17 18:59 06:59 18:59 Intake Total 922.860 866.208 177 Output Total 559 362 200 Balance 363.860 504.208 -23 Weight 106.7 kg 109.7 kg Intake: IV 728 548 177 CO/CI 60 80 60 Dextrose 5% in Water 100 200 ml @ 618 mls/hr IV .Q10M ONE with Amiodarone 150 mg Rx#:[id number] Pressure Bag 108 108 27 Sodium Chloride 0.45% 1, 360 360 90 000 ml @ 30 mls/hr IV . Q24H [facility] Rx#:[id number] Intake, IV Titration 194.860 318.208 Amount Amiodarone 450 mg In 250 Dextrose 5% in Water 250 ml @ 0.5 MG/MIN 16.66 mls /hr IV .Q15H1M [facility] Rx#: [id number] Amiodarone 450 mg In 111.622 Dextrose 5% in Water 250 ml @ 1 MG/MIN 33.33 mls/ hr IV .Q7H31M [facility] Rx#: [id number] Insulin Regular 100 unit 67.438 18.158 In Sodium Chloride 0.9% 100 ml @ Per Protocol IV .Q0M [facility] Rx#:[id number] Norepinephrin 16 mg-0.9% 15.8 50.05 Ns Pmx 16 mg In 250 ml @ Titrate IV .Q0M [facility] Rx#: [id number] Output: Chest Tube Drainage 190 20 100 BL Mediastinal 90 20 20 Left Pleural 100 0 80 Urine 369 342 100 Other: Voiding Method Indwelling Catheter Indwelling Catheter ABP, PAP, CO, CI - Last Documented Arterial Blood Pressure 121/62 Pulmonary Artery Pressure 38/26 Cardiac Output 4.8 Cardiac Index 2.4 - Constitutional Constitutional Comment(s): Patient remains intubated with mechanical ventilator support, she is currently sedated with propofol drip at 25 mcg/kg/m. She is following some simple commands appropriately. She is nodding her head yes and no appropriately to questions, she was moving all 4 extremities appropriately with verbal stimuli. General appearance: Present: cooperative, no acute distress, obese - EENT ENT: Present: hearing grossly normal - Neck Details: No JVD, no lymphadenopathy, neck is supple. Right IJ Cordis with Troy-Cesario catheter in place. - Respiratory Details: Lung sounds with few scattered rhonchi throughout, diminished bilateral bases. Respirations are symmetrical and nonlabored with mechanical ventilator support. ET tube #8.0, 21 cm at the lip. Current ventilator settings are as follows: Assist control 12, TV 550, FiO2 50%, PEEP 8. ABG results from this a.m.: PH 7.45/pCO2 36/by mouth to 107/8 CO2 25/oxygen saturation 98.1/base excess 1.4. Mediastinal and left pleural chest tubes without air leak. A draining thin serosanguineous drainage. Her chest tubes remained to low continuous wall suction -20 cm H2O. Mediastinal chest tube with 40 mL output in the last 8 hours, 100 mL output in the last 24 hours. Left pleural chest tube with 80 mL output last 8 hours, 160 mL output in the last 24 hours. - Cardiovascular Details: Regular rhythm with a tachycardic rate. S1 and S2 present, negative for S3, gallop or murmur. Sternum is stable. Bedside telemetry showing accelerated junctional rhythm heart rate 120. Atrial and ventricular epicardial pacemaker wires present and connected to the bedside pacemaker generator on standby. Current cardiac output is 4.8, cardiac index 2.4, PA pressures are 34/23, CVP 16 , SVR 982. Knee-high DANITZA hose and sequential compression devices in place to her bilateral lower extremities. Generalized +1 edema. Primacor drip remains at 0.03 mcg/kg/m, norepinephrine is currently at 4 mcg/m, amiodarone drip is at 0.5 mg/m, and her vasopressin drip has been off since around 4 AM today. - Gastrointestinal Gastrointestinal Comment(s): Abdomen is soft, nontender and nondistended. Hypoactive bowel sounds present in all 4 abdominal quadrants. OG tube in place to low continuous wall suction 150 mL of green colored drainage in the last 24 hours. - Genitourinary Genitourinary Comment(s): Mason catheter for accurate I&O. Clear calvin urine. Urine output remains at 30 -35 mL per hour. 235 mL output in the last 8 hours. - Integumentary Integumentary Comment(s): Midline sternal incision clean dry and well approximated. No drainage or redness present. Dermabond dressing clean and dry. Left leg EVH site clean dry and well approximated. No drainage or redness present. Skin is warm, dry and pink. Small abrasion to her left buttock's clean and dry. - Musculoskeletal Musculoskeletal: Present: generalized weakness - Psychiatric Psychiatric: Present: A&O x's 3, appropriate affect, intact judgment & insight - Allied health notes Allied health notes reviewed: nursing - Labs CBC & Chem 7: 11/28/17 05:00 11/28/17 05:00 Labs: Abnormal Lab Results - Last 24 Hours (Table) 11/27/17 11/27/17 11/27/17 Range/Units 09:45 10:48 11:49 WBC (3.8-10.6) k/uL RBC (3.80-5.40) m/uL Hgb (11.4-16.0) gm/dL Hct (34.0-46.0) % RDW (11.5-15.5) % Plt Count (150-450) k/uL ABG Total CO2 (19-24) mmol/L ABG O2 Saturation (94-97) % BUN (7-17) mg/dL Creatinine (0.52-1.04) mg/dL Glucose (74-99) mg/dL POC Glucose (mg/dL) 144 H 130 H 126 H (75-99) mg/dL Calcium (8.4-10.2) mg/dL Magnesium (1.6-2.3) mg/dL AST (14-36) U/L Total Protein (6.3-8.2) g/dL Albumin (3.5-5.0) g/dL 11/27/17 11/27/17 11/27/17 Range/Units 12:57 13:21 14:34 WBC (3.8-10.6) k/uL RBC (3.80-5.40) m/uL Hgb (11.4-16.0) gm/dL Hct (34.0-46.0) % RDW (11.5-15.5) % Plt Count (150-450) k/uL ABG Total CO2 25 H 26 H (19-24) mmol/L ABG O2 Saturation (94-97) % BUN (7-17) mg/dL Creatinine (0.52-1.04) mg/dL Glucose (74-99) mg/dL POC Glucose (mg/dL) 120 H (75-99) mg/dL Calcium (8.4-10.2) mg/dL Magnesium (1.6-2.3) mg/dL AST (14-36) U/L Total Protein (6.3-8.2) g/dL Albumin (3.5-5.0) g/dL 11/27/17 11/27/17 11/27/17 Range/Units 15:16 15:58 18:15 WBC (3.8-10.6) k/uL RBC (3.80-5.40) m/uL Hgb (11.4-16.0) gm/dL Hct (34.0-46.0) % RDW (11.5-15.5) % Plt Count (150-450) k/uL ABG Total CO2 (19-24) mmol/L ABG O2 Saturation (94-97) % BUN (7-17) mg/dL Creatinine (0.52-1.04) mg/dL Glucose (74-99) mg/dL POC Glucose (mg/dL) 123 H 113 H 106 H (75-99) mg/dL Calcium (8.4-10.2) mg/dL Magnesium (1.6-2.3) mg/dL AST (14-36) U/L Total Protein (6.3-8.2) g/dL Albumin (3.5-5.0) g/dL 11/27/17 11/27/17 11/27/17 Range/Units 20:05 22:26 23:00 WBC (3.8-10.6) k/uL RBC (3.80-5.40) m/uL Hgb (11.4-16.0) gm/dL Hct (34.0-46.0) % RDW (11.5-15.5) % Plt Count (150-450) k/uL ABG Total CO2 (19-24) mmol/L ABG O2 Saturation (94-97) % BUN (7-17) mg/dL Creatinine (0.52-1.04) mg/dL Glucose (74-99) mg/dL POC Glucose (mg/dL) 119 H 135 H 134 H (75-99) mg/dL Calcium (8.4-10.2) mg/dL Magnesium (1.6-2.3) mg/dL AST (14-36) U/L Total Protein (6.3-8.2) g/dL Albumin (3.5-5.0) g/dL 02/25/18 02/25/18 02/25/18 Range/Units 00:22 02:21 03:08 WBC (3.8-10.6) k/uL RBC (3.80-5.40) m/uL Hgb (11.4-16.0) gm/dL Hct (34.0-46.0) % RDW (11.5-15.5) % Plt Count (150-450) k/uL ABG Total CO2 (19-24) mmol/L ABG O2 Saturation (94-97) % BUN (7-17) mg/dL Creatinine (0.52-1.04) mg/dL Glucose (74-99) mg/dL POC Glucose (mg/dL) 121 H 112 H 111 H (75-99) mg/dL Calcium (8.4-10.2) mg/dL Magnesium (1.6-2.3) mg/dL AST (14-36) U/L Total Protein (6.3-8.2) g/dL Albumin (3.5-5.0) g/dL 11/28/17 11/28/17 11/28/17 Range/Units 05:00 05:00 05:17 WBC 17.6 H (3.8-10.6) k/uL RBC 2.88 L (3.80-5.40) m/uL Hgb 7.7 L (11.4-16.0) gm/dL Hct 24.7 L (34.0-46.0) % RDW 17.5 H (11.5-15.5) % Plt Count 99 L (150-450) k/uL ABG Total CO2 (19-24) mmol/L ABG O2 Saturation (94-97) % BUN 44 H (7-17) mg/dL Creatinine 1.52 H (0.52-1.04) mg/dL Glucose 110 H (74-99) mg/dL POC Glucose (mg/dL) 125 H (75-99) mg/dL Calcium 8.2 L (8.4-10.2) mg/dL Magnesium 2.5 H (1.6-2.3) mg/dL AST 175 H (14-36) U/L Total Protein 4.9 L (6.3-8.2) g/dL Albumin 2.6 L (3.5-5.0) g/dL 11/28/17 11/28/17 11/28/17 Range/Units 06:25 08:29 08:41 WBC (3.8-10.6) k/uL RBC (3.80-5.40) m/uL Hgb (11.4-16.0) gm/dL Hct (34.0-46.0) % RDW (11.5-15.5) % Plt Count (150-450) k/uL ABG Total CO2 26 H (19-24) mmol/L ABG O2 Saturation 98.1 H (94-97) % BUN (7-17) mg/dL Creatinine (0.52-1.04) mg/dL Glucose (74-99) mg/dL POC Glucose (mg/dL) 121 H 114 H (75-99) mg/dL Calcium (8.4-10.2) mg/dL Magnesium (1.6-2.3) mg/dL AST (14-36) U/L Total Protein (6.3-8.2) g/dL Albumin (3.5-5.0) g/dL 11/28/17 Range/Units 08:54 WBC (3.8-10.6) k/uL RBC (3.80-5.40) m/uL Hgb (11.4-16.0) gm/dL Hct (34.0-46.0) % RDW (11.5-15.5) % Plt Count (150-450) k/uL ABG Total CO2 (19-24) mmol/L ABG O2 Saturation (94-97) % BUN (7-17) mg/dL Creatinine (0.52-1.04) mg/dL Glucose (74-99) mg/dL POC Glucose (mg/dL) 120 H (75-99) mg/dL Calcium (8.4-10.2) mg/dL Magnesium (1.6-2.3) mg/dL AST (14-36) U/L Total Protein (6.3-8.2) g/dL Albumin (3.5-5.0) g/dL Microbiology - Last 24 Hours (Table) 11/26/17 04:00 Gram Stain - Preliminary Sputum Sputum Culture - Preliminary - Imaging and Cardiology Chest x-ray: report reviewed, image reviewed Assessment and Plan (1) Acute blood loss as cause of postoperative anemia Current Visit: Yes Status: Acute Code(s): D62 - ACUTE POSTHEMORRHAGIC ANEMIA SNOMED Code(s): 93971330765998754 (2) CAD (coronary artery disease) Current Visit: Yes Status: Chronic Code(s): I25.10 - ATHSCL HEART DISEASE OF [place] CORONARY ARTERY W/O ANG PCTRS SNOMED Code(s): 67862865 (3) Family history of coronary artery disease Current Visit: Yes Status: Chronic Code(s): Z82.49 - FAMILY HX OF ISCHEM HEART DIS AND OTH DIS OF THE CIRC SYS SNOMED Code(s): 158407627 (4) Hyperlipidemia Current Visit: Yes Status: Chronic Code(s): E78.5 - HYPERLIPIDEMIA, UNSPECIFIED SNOMED Code(s): 08478017 (5) Hypertension Current Visit: Yes Status: Chronic Code(s): I10 - ESSENTIAL (PRIMARY) HYPERTENSION SNOMED Code(s): 26499197 (6) Severe mitral regurgitation Current Visit: Yes Status: Chronic Code(s): I34.0 - NONRHEUMATIC MITRAL ( VALVE) INSUFFICIENCY SNOMED Code(s): 67457383 (7) Stenosis of left subclavian artery Current Visit: Yes Status: Chronic Code(s): I77.1 - STRICTURE OF ARTERY SNOMED Code(s): 816153511 (8) PAD (peripheral artery disease) Current Visit: No Status: Acute Code(s): I73.9 - PERIPHERAL VASCULAR DISEASE , UNSPECIFIED SNOMED Code(s): 600909694 (9) History of GI bleed Current Visit: No Status: Resolved Code(s): Z87.19 - PERSONAL HISTORY OF OTHER DISEASES OF THE DIGESTIVE SYSTEM SNOMED Code(s): 845573651 (10) Paroxysmal atrial fibrillation Current Visit: No Status: Resolved Code(s): I48.0 - PAROXYSMAL ATRIAL FIBRILLATION SNOMED Code(s): 591722020 (11) Elevated aspartate aminotransferase level Current Visit: Yes Status: Acute Code(s): R74.0 - NONSPEC ELEV OF LEVELS OF TRANSAMNS & LACTIC ACID DEHYDRGNSE SNOMED Code(s): 768926787 Plan: 1. Continue norepinephrine drip, we will decrease his Primacor drip to 0.2 mcg/ kg/m.. 2. Continue amiodarone 400 mg per OG tube twice a day for history of paroxysmal atrial fibrillation on home amiodarone. 3. Mechanical ventilation management per pulmonology, Dr. Rutledge's recommendations. Weaning trial attempted today. 4. GI/DVT prophylaxis. 5. We will continue metoprolol 12.5 mg per OG tube twice a day today. 6. Keep mediastinal and left pleural chest tubes in place today to low continuous wall suction -20 [place] H2O. 7. Will monitor daily labs, and chest x-rays. 8. Continue mupirocin for preoperative MRSA positive nasal swab. 9. Avoid nephrotoxic medications. 10. Patient is currently critical but relatively stable, will continue to monitor very closely. 11. Continue Lipitor despite elevation in AST. AST trending down. 12. We will continue heparin 5000 units subcutaneous every 8 hours for DVT prophylaxis. 13. Postoperative limited 2-D echocardiogram on 11/26/2017 shows an ejection fraction of 45-50%. 14. We will initiate tube feedings vital high-protein with goal rate of 35 mL per hour. Per dietitian recommendations. 15. We will give albumin 25% IV 1 followed by Lasix 40 mg IV 1. 16. More recommendations as patient progresses. Time with Patient: Greater than 30 <Dion Back - Last Filed: 11/28/17 13:39> Objective - Vital Signs Vital signs: Vital Signs Temp 98.2 F 11/26/17 07:00 Pulse 116 H 11/28/17 12:15 Resp 16 11/28/17 12:00 BP 115/52 11/27/17 10:00 Pulse Ox 98 11/28/17 12:00 Intake & Output 11/27/17 11/28/17 11/28/17 18:59 06:59 18:59 Intake Total 922.860 866.208 379.828 Output Total 559 362 370 Balance 363.860 504.208 9.828 Weight 106.7 kg 109.7 kg Intake: IV 728 548 354 CO/CI 60 80 120 Dextrose 5% in Water 100 200 ml @ 618 mls/hr IV .Q10M [facility] with Amiodarone 150 mg Rx#:[id number] Pressure Bag 108 108 54 Sodium Chloride 0.45% 1, 360 360 180 000 ml @ 30 mls/hr IV . Q24H [facility] Rx#:[id number] Intake, IV Titration 194.860 318.208 25.828 Amount Amiodarone 450 mg In 250 Dextrose 5% in Water 250 ml @ 0.5 MG/MIN 16.66 mls /hr IV .Q15H1M [facility] Rx#: [id number] Amiodarone 450 mg In 111.622 Dextrose 5% in Water 250 ml @ 1 MG/MIN 33.33 mls/ hr IV .Q7H31M [facility] Rx#: [id number] Insulin Regular 100 unit 67.438 18.158 25.828 In Sodium Chloride 0.9% 100 ml @ Per Protocol IV .Q0M [facility] Rx#:[id number] Norepinephrin 16 mg-0.9% 15.8 50.05 Ns Pmx 16 mg In 250 ml @ Titrate IV .Q0M [facility] Rx#: [id number] Output: Chest Tube Drainage 190 20 160 BL Mediastinal 90 20 60 Left Pleural 100 0 100 Urine 369 342 210 Other: Voiding Method Indwelling Catheter Indwelling Catheter Indwelling Catheter ABP, PAP, CO, CI - Last Documented Arterial Blood Pressure 102/56 Pulmonary Artery Pressure 35/24 Cardiac Output 4.9 Cardiac Index 2.5 - Labs CBC & Chem 7: 11/28/17 05:00 11/28/17 05:00 Labs: Abnormal Lab Results - Last 24 Hours (Table) 11/27/17 11/27/17 11/27/17 Range/Units 14:34 15:16 15:58 WBC (3.8-10.6) k/uL RBC (3.80-5.40) m/uL Hgb (11.4-16.0) gm/dL Hct (34.0-46.0) % RDW (11.5-15.5) % Plt Count (150-450) k/uL ABG Total CO2 26 H (19-24) mmol/L ABG O2 Saturation (94-97) % BUN (7-17) mg/dL Creatinine (0.52-1.04) mg/dL Glucose (74-99) mg/dL POC Glucose (mg/dL) 123 H 113 H (75-99) mg/dL Calcium (8.4-10.2) mg/dL Magnesium (1.6-2.3) mg/dL AST (14-36) U/L Total Protein (6.3-8.2) g/dL Albumin (3.5-5.0) g/dL 11/27/17 11/27/17 11/27/17 Range/Units 18:15 20:05 22:26 WBC (3.8-10.6) k/uL RBC (3.80-5.40) m/uL Hgb (11.4-16.0) gm/dL Hct (34.0-46.0) % RDW (11.5-15.5) % Plt Count (150-450) k/uL ABG Total CO2 (19-24) mmol/L ABG O2 Saturation (94-97) % BUN (7-17) mg/dL Creatinine (0.52-1.04) mg/dL Glucose (74-99) mg/dL POC Glucose (mg/dL) 106 H 119 H 135 H (75-99) mg/dL Calcium (8.4-10.2) mg/dL Magnesium (1.6-2.3) mg/dL AST (14-36) U/L Total Protein (6.3-8.2) g/dL Albumin (3.5-5.0) g/dL 11/27/17 11/28/17 11/28/17 Range/Units 23:00 00:22 02:21 WBC (3.8-10.6) k/uL RBC (3.80-5.40) m/uL Hgb (11.4-16.0) gm/dL Hct (34.0-46.0) % RDW (11.5-15.5) % Plt Count (150-450) k/uL ABG Total CO2 (19-24) mmol/L ABG O2 Saturation (94-97) % BUN (7-17) mg/dL Creatinine (0.52-1.04) mg/dL Glucose (74-99) mg/dL POC Glucose (mg/dL) 134 H 121 H 112 H (75-99) mg/dL Calcium (8.4-10.2) mg/dL Magnesium (1.6-2.3) mg/dL AST (14-36) U/L Total Protein (6.3-8.2) g/dL Albumin (3.5-5.0) g/dL 11/28/17 11/28/17 11/28/17 Range/Units 03:08 05:00 05:00 WBC 17.6 H (3.8-10.6) k/uL RBC 2.88 L (3.80-5.40) m/uL Hgb 7.7 L (11.4-16.0) gm/dL Hct 24.7 L (34.0-46.0) % RDW 17.5 H (11.5-15.5) % Plt Count 99 L (150-450) k/uL ABG Total CO2 (19-24) mmol/L ABG O2 Saturation (94-97) % BUN 44 H (7-17) mg/dL Creatinine 1.52 H (0.52-1.04) mg/dL Glucose 110 H (74-99) mg/dL POC Glucose (mg/dL) 111 H (75-99) mg/dL Calcium 8.2 L (8.4-10.2) mg/dL Magnesium 2.5 H (1.6-2.3) mg/dL AST 175 H (14-36) U/L Total Protein 4.9 L (6.3-8.2) g/dL Albumin 2.6 L (3.5-5.0) g/dL 11/28/17 11/28/17 11/28/17 Range/Units 05:17 06:25 08:29 WBC (3.8-10.6) k/uL RBC (3.80-5.40) m/uL Hgb (11.4-16.0) gm/dL Hct (34.0-46.0) % RDW (11.5-15.5) % Plt Count (150-450) k/uL ABG Total CO2 (19-24) mmol/L ABG O2 Saturation (94-97) % BUN (7-17) mg/dL Creatinine (0.52-1.04) mg/dL Glucose (74-99) mg/dL POC Glucose (mg/dL) 125 H 121 H 114 H (75-99) mg/dL Calcium (8.4-10.2) mg/dL Magnesium (1.6-2.3) mg/dL AST (14-36) U/L Total Protein (6.3-8.2) g/dL Albumin (3.5-5.0) g/dL 11/28/17 11/28/17 11/28/17 Range/Units 08:41 08:54 09:54 WBC (3.8-10.6) k/uL RBC (3.80-5.40) m/uL Hgb (11.4-16.0) gm/dL Hct (34.0-46.0) % RDW (11.5-15.5) % Plt Count (150-450) k/uL ABG Total CO2 26 H (19-24) mmol/L ABG O2 Saturation 98.1 H (94-97) % BUN (7-17) mg/dL Creatinine (0.52-1.04) mg/dL Glucose (74-99) mg/dL POC Glucose (mg/dL) 120 H 132 H (75-99) mg/dL Calcium (8.4-10.2) mg/dL Magnesium (1.6-2.3) mg/dL AST (14-36) U/L Total Protein (6.3-8.2) g/dL Albumin (3.5-5.0) g/dL 11/28/17 11/28/17 Range/Units 11:11 11:49 WBC (3.8-10.6) k/uL RBC (3.80-5.40) m/uL Hgb (11.4-16.0) gm/dL Hct (34.0-46.0) % RDW (11.5-15.5) % Plt Count (150-450) k/uL ABG Total CO2 (19-24) mmol/L ABG O2 Saturation (94-97) % BUN (7-17) mg/dL Creatinine (0.52-1.04) mg/dL Glucose (74-99) mg/dL POC Glucose (mg/dL) 117 H 122 H (75-99) mg/dL Calcium (8.4-10.2) mg/dL Magnesium (1.6-2.3) mg/dL AST (14-36) U/L Total Protein (6.3-8.2) g/dL Albumin (3.5-5.0) g/dL Microbiology - Last 24 Hours (Table) 11/26/17 04:00 Gram Stain - Final Sputum Sputum Culture - Final Assessment and Plan Plan: The patient was seen and examined. I agree with the above assessment and plan. A short weaning trial was attempted today. She is currently on 50% FiO2 and 5 of PEEP. Her vasopressin has been weaned off and she remains on low-dose milrinone and Levophed. Her hemoglobin is stable. We will continue to wean both as tolerated. We will start some tube feeds. Her creatinine is slightly better today. I would like to give her some albumin and Lasix to help diurese her. She may be developing a right-sided pleural effusion which will possibly need drainage.
[2017-11-28] MEDS ORDERED: ALBUMIN HUMAN 25% 50 ML in EMPTY BAG 1 BAG IVPB ONE (13:00)
--- NOTE | 2017-11-28 13:09 | P.PN ---
Subjective Progress Note Date: 11/28/17 Principal diagnosis: Status post CABG 1, mitral valve replacement, postoperative day #3 This is a 67-year-old female with history of severe mitral regurgitation, paroxysmal atrial fibrillation, recent admission for lower GI bleeding and duodenal ulcer, history of left subclavian stenosis and stent placement in 2014 , recently discovered to have critical in-stent stenosis, patient underwent mitral valve replacement yesterday and CABG 1 with reverse saphenous vein graft to the obtuse marginal artery, Maze procedure, and ligation of the left atrial appendage. Patient had intraoperative complications with intraoperative bleeding requiring massive transfusion for acute blood loss, she also received significant amount of cryoprecipitate. He received a total of 9 units of packed RBCs, 4 units of fresh was a plasma, 3 units of platelets, and 20 units of cryoprecipitate. Patient was stabilized hemodynamically, sent to the ICU on mechanical ventilation, and she remains on mechanical ventilation since last night. Ventilator settings were noted, she is presently on tidal volume of 550 , assist control rate of 16, FiO2 of 55%, and PEEP of 8. ABG this morning showed a pO2 of 79 pCO2 of 45 pH of 7.34. Hence her tidal volume was increased from 500-550. Chest x-ray this morning showed postsurgical changes, small bilateral effusions and venous congestion. Lines and endotracheal tube were noted to be in proper position patient is still requiring significant medications including Primacor, norepinephrine, and cardiac index is in the range of 2.0. Clearly at this point the patient is not stable enough to address weaning and extubation at this point. All labs were reviewed, her BUN is 24 creatinine is 1.47. Baseline creatinine is 0.84. Patient was reevaluated today on 11/27/2017, remains on mechanical ventilation, remains with hemodynamic instability requiring significant amount of pressors and inotropes. As I was evaluating the patient, patient went into atrial fibrillation and RVR, but converted on her own, she was already on amiodarone drip. Her blood pressure was fluctuating, however the right radial arterial line was not functioning properly, hence we removed it and placed a right brachial arterial line. Chest x-ray was reviewed, endotracheal tube seems to be in proper position, heart is definitely enlarged, small bilateral pleural effusions are noted, and worsening bibasilar opacities with vascular congestion/ interstitial edema is suspected. Her ABG is marginal. With pO2 of 88 pCO2 of 35 pH of 7.44 and this was on 55% FiO2 and PEEP of 8. We'll try to go down on the FiO2 to 50%, and hopefully get the PEEP down from 8-5. Patient remains on propofol at 15 mcg/kg/m, opens eyes to verbal stimuli, moving 4 extremities, she is still on norepinephrine drip, Primacor, amiodarone, and vasopressin. Cardiac index is about 2.2 today. CBC showed a hemoglobin of 8.0. Platelets are 88,000. Kidney functioning is a bit worse with BUN 32 and creatinine 1.70, baseline creatinine is 0.84 Reevaluated today on 11/28/2017, remains on mechanical ventilation, remains on norepinephrine, Primacor, off face of Julio, remains on amiodarone. Patient was earlier on propofol, however as per the propofol on hold, we tried the patient on a short trial of CPAP, and she did very poorly. She became extremely tachypneic, tachycardic, and was noted to have significant work of breathing. At any rate placed back on assist control mode of mechanical ventilation, and sedated again. Clinically the patient is not ready for any weaning at this point. I witnessed her profound shortness of breath and respiratory distress when she was placed on a very short CPAP trial. All labs were reviewed, hemoglobin is 7.7 today WBC count of 17.6. ABG showed a pO2 of 107 pCO2 of 36 pH of 7.45. Her ventilator settings at present are tidal volume of 550 assist-control rate of 12 FiO2 of 50% and PEEP is 5. Chest x-ray showed significant cardiomegaly, worsening bibasilar opacities which is a combination of atelectasis and possibly some effusions bilaterally. Objective - Vital Signs Vital signs: Vital Signs Temp 98.2 F 11/26/17 07:00 Pulse 116 H 11/28/17 12:15 Resp 16 11/28/17 12:00 BP 115/52 11/27/17 10:00 Pulse Ox 98 11/28/17 12:00 Intake & Output 11/27/17 11/28/17 11/28/17 18:59 06:59 18:59 Intake Total 922.860 866.208 379.828 Output Total 559 362 370 Balance 363.860 504.208 9.828 Weight 106.7 kg 109.7 kg Intake: IV 728 548 354 CO/CI 60 80 120 Dextrose 5% in Water 100 200 ml @ 618 mls/hr IV .Q10M [facility] with Amiodarone 150 mg Rx#:[id number] Pressure Bag 108 108 54 Sodium Chloride 0.45% 1, 360 360 180 000 ml @ 30 mls/hr IV . Q24H [facility] Rx#:[id number] Intake, IV Titration 194.860 318.208 25.828 Amount Amiodarone 450 mg In 250 Dextrose 5% in Water 250 ml @ 0.5 MG/MIN 16.66 mls /hr IV .Q15H1M [facility] Rx#: [id number] Amiodarone 450 mg In 111.622 Dextrose 5% in Water 250 ml @ 1 MG/MIN 33.33 mls/ hr IV .Q7H31M [facility] Rx#: [id number] Insulin Regular 100 unit 67.438 18.158 25.828 In Sodium Chloride 0.9% 100 ml @ Per Protocol IV .Q0M [facility] Rx#:[id number] Norepinephrin 16 mg-0.9% 15.8 50.05 Ns Pmx 16 mg In 250 ml @ Titrate IV .Q0M [facility] Rx#: [id number] Output: Chest Tube Drainage 190 20 160 BL Mediastinal 90 20 60 Left Pleural 100 0 100 Urine 369 342 210 Other: Voiding Method Indwelling Catheter Indwelling Catheter Indwelling Catheter ABP, PAP, CO, CI - Last Documented Arterial Blood Pressure 102/56 Pulmonary Artery Pressure 35/24 Cardiac Output 4.9 Cardiac Index 2.5 - Exam General appearance: Physical exam revealed a 67-year-old female, obese, on mechanical ventilation, sedated.- Respiratory Detail: Pulmonary: Endotracheal tube seems to be intact, diminished breath sounds and crackles at the bases, respiration is even and nonlabored, mediastinal chest tube noted, left pleural chest tube was also noted. - Cardiovascular Details: Normal S1 and S2, no gallops, positive pericardial rub noted. - Gastrointestinal Gastrointestinal Comment(s): Obese, soft, nontender, no megaly, no rebound, positive bowel sounds. - Genitourinary Genitourinary Comment(s): Mason present - Integumentary Integumentary Comment(s): Skin is warm, no rashes noted. - Neurologic Neurologic Comment(s): Off propofol, patient was noted to be awake, followed simple instructions, Musculoskeletal: Adequate strength bilaterally. Moved all extremities well. No deformities. Psychiatric: Cannot be assessed. - Labs CBC & Chem 7: 11/28/17 05:00 11/28/17 05:00 Labs: Abnormal Lab Results - Last 24 Hours (Table) 11/27/17 11/27/17 11/27/17 Range/Units 13:21 14:34 15:16 WBC (3.8-10.6) k/uL RBC (3.80-5.40) m/uL Hgb (11.4-16.0) gm/dL Hct (34.0-46.0) % RDW (11.5-15.5) % Plt Count (150-450) k/uL ABG Total CO2 26 H (19-24) mmol/L ABG O2 Saturation (94-97) % BUN (7-17) mg/dL Creatinine (0.52-1.04) mg/dL Glucose (74-99) mg/dL POC Glucose (mg/dL) 120 H 123 H (75-99) mg/dL Calcium (8.4-10.2) mg/dL Magnesium (1.6-2.3) mg/dL AST (14-36) U/L Total Protein (6.3-8.2) g/dL Albumin (3.5-5.0) g/dL 11/27/17 11/27/17 11/27/17 Range/Units 15:58 18:15 20:05 WBC (3.8-10.6) k/uL RBC (3.80-5.40) m/uL Hgb (11.4-16.0) gm/dL Hct (34.0-46.0) % RDW (11.5-15.5) % Plt Count (150-450) k/uL ABG Total CO2 (19-24) mmol/L ABG O2 Saturation (94-97) % BUN (7-17) mg/dL Creatinine (0.52-1.04) mg/dL Glucose (74-99) mg/dL POC Glucose (mg/dL) 113 H 106 H 119 H (75-99) mg/dL Calcium (8.4-10.2) mg/dL Magnesium (1.6-2.3) mg/dL AST (14-36) U/L Total Protein (6.3-8.2) g/dL Albumin (3.5-5.0) g/dL 11/27/17 11/27/17 11/28/17 Range/Units 22:26 23:00 00:22 WBC (3.8-10.6) k/uL RBC (3.80-5.40) m/uL Hgb (11.4-16.0) gm/dL Hct (34.0-46.0) % RDW (11.5-15.5) % Plt Count (150-450) k/uL ABG Total CO2 (19-24) mmol/L ABG O2 Saturation (94-97) % BUN (7-17) mg/dL Creatinine (0.52-1.04) mg/dL Glucose (74-99) mg/dL POC Glucose (mg/dL) 135 H 134 H 121 H (75-99) mg/dL Calcium (8.4-10.2) mg/dL Magnesium (1.6-2.3) mg/dL AST (14-36) U/L Total Protein (6.3-8.2) g/dL Albumin (3.5-5.0) g/dL 11/28/17 11/28/17 11/28/17 Range/Units 02:21 03:08 05:00 WBC 17.6 H (3.8-10.6) k/uL RBC 2.88 L (3.80-5.40) m/uL Hgb 7.7 L (11.4-16.0) gm/dL Hct 24.7 L (34.0-46.0) % RDW 17.5 H (11.5-15.5) % Plt Count 99 L (150-450) k/uL ABG Total CO2 (19-24) mmol/L ABG O2 Saturation (94-97) % BUN (7-17) mg/dL Creatinine (0.52-1.04) mg/dL Glucose (74-99) mg/dL POC Glucose (mg/dL) 112 H 111 H (75-99) mg/dL Calcium (8.4-10.2) mg/dL Magnesium (1.6-2.3) mg/dL AST (14-36) U/L Total Protein (6.3-8.2) g/dL Albumin (3.5-5.0) g/dL 11/28/17 11/28/17 11/28/17 Range/Units 05:00 05:17 06:25 WBC (3.8-10.6) k/uL RBC (3.80-5.40) m/uL Hgb (11.4-16.0) gm/dL Hct (34.0-46.0) % RDW (11.5-15.5) % Plt Count (150-450) k/uL ABG Total CO2 (19-24) mmol/L ABG O2 Saturation (94-97) % BUN 44 H (7-17) mg/dL Creatinine 1.52 H (0.52-1.04) mg/dL Glucose 110 H (74-99) mg/dL POC Glucose (mg/dL) 125 H 121 H (75-99) mg/dL Calcium 8.2 L (8.4-10.2) mg/dL Magnesium 2.5 H (1.6-2.3) mg/dL AST 175 H (14-36) U/L Total Protein 4.9 L (6.3-8.2) g/dL Albumin 2.6 L (3.5-5.0) g/dL 11/28/17 11/28/17 11/28/17 Range/Units 08:29 08:41 08:54 WBC (3.8-10.6) k/uL RBC (3.80-5.40) m/uL Hgb (11.4-16.0) gm/dL Hct (34.0-46.0) % RDW (11.5-15.5) % Plt Count (150-450) k/uL ABG Total CO2 26 H (19-24) mmol/L ABG O2 Saturation 98.1 H (94-97) % BUN (7-17) mg/dL Creatinine (0.52-1.04) mg/dL Glucose (74-99) mg/dL POC Glucose (mg/dL) 114 H 120 H (75-99) mg/dL Calcium (8.4-10.2) mg/dL Magnesium (1.6-2.3) mg/dL AST (14-36) U/L Total Protein (6.3-8.2) g/dL Albumin (3.5-5.0) g/dL 11/28/17 11/28/17 11/28/17 Range/Units 09:54 11:11 11:49 WBC (3.8-10.6) k/uL RBC (3.80-5.40) m/uL Hgb (11.4-16.0) gm/dL Hct (34.0-46.0) % RDW (11.5-15.5) % Plt Count (150-450) k/uL ABG Total CO2 (19-24) mmol/L ABG O2 Saturation (94-97) % BUN (7-17) mg/dL Creatinine (0.52-1.04) mg/dL Glucose (74-99) mg/dL POC Glucose (mg/dL) 132 H 117 H 122 H (75-99) mg/dL Calcium (8.4-10.2) mg/dL Magnesium (1.6-2.3) mg/dL AST (14-36) U/L Total Protein (6.3-8.2) g/dL Albumin (3.5-5.0) g/dL Microbiology - Last 24 Hours (Table) 11/26/17 04:00 Gram Stain - Final Sputum Sputum Culture - Final Assessment and Plan Assessment: Impression: 1 status post CABG and mitral valve replacement. Postoperative day #2 #3 2 status post CABG times one 3 acute profound blood loss and massive blood transfusion as noted in HPI. Unexpected. 4 history of multiple comorbidities including hypertension, severe mitral regurgitation, left subclavian stenosis, paroxysmal atrial fibrillation, history of GI bleeding while on anticoagulation therapy, and history of obesity. Recommendation: Continue ventilatory support, hemodynamic support, nutritional support via enteral feeding, patient was given a short weaning trial, but she failed, hence she had to be placed back on assist control mode of mechanical ventilation, we will continue all supportive care measures, and that really address weeding in the next 24 hours. Discussed her condition with cardiothoracic surgery on the case. We'll continue to follow, critical care time is 35 minutes. Time with Patient: Greater than 30
[2017-11-28] MEDS: PROPOFOL 1,000 MG in EMPTY BAG 1 BAG IV SCH (14:04)
[2017-11-28 14:12] LABS: Glucose,Whole Blood 118 mg/dL (75-99)
--- NOTE | 2017-11-28 14:48 | PN ---
PROGRESS NOTE Maritza Sadler appears to be what looks like accelerated junctional rhythm or atrial flutter with a 3 as to 1 block. Hemodynamically more stable. Vasopressin is off. She is on Primacor. Making some urine. S1-S2 heard normally. Decent air entry with respirator breath sounds. The rest of physical exam unchanged. Overall, I think she is doing somewhat better. Cardiac index is 2.7, and she is making some urine. Plan is to continue current supportive care. No other intervention from a cardiac standpoint. MMODL / IJN: [id number] /
[2017-11-28 16:06] LABS: Glucose,Whole Blood 118 mg/dL (75-99)
[2017-11-28 17:38] LABS: Glucose,Whole Blood 119 mg/dL (75-99)
[2017-11-28 19:00] LABS: Glucose,Whole Blood 122 mg/dL (75-99)
--- NOTE | 2017-11-28 20:09 | PN ---
PROGRESS NOTE DATE OF SERVICE: 11/28/2017. Patient is status post CABG times one, mitral valve replacement postoperative day #3. Patient is seen at the bedside in ICU. Patient remains on mechanical ventilation. Vital signs temperature 98.2, pulse 116, respirations 18, blood pressure 115/52, O2 saturation 98%. HEENT: Atraumatic, normocephalic. Pupils equal and reactive to light. Extraocular movements cannot be judged. Neck is supple without lymphadenopathy. JVD is negative. No carotid bruit heard. Lungs decreased breath sounds with scattered wheezes. Heart regular rate and rhythm without any murmurs, gallop rhythm. Abdomen is soft. Bowel sounds positive. Extremities no edema, clubbing or cyanosis. LAB DATA: CBC white blood count of 17.6, hemoglobin 7.7, hematocrit 24.7, platelet count of 99. Chemical profile sodium 140, potassium 3.9, chloride 106, bicarb 26, BUN 44, creatinine 1.52, glucose 110. ASSESSMENT: 1. Status post coronary artery bypass grafting with mitral valve replacement, postoperative day #3. 2. Status post coronary artery bypass grafting x1. 3. A profound blood loss with a massive blood transfusion needed postoperatively. 4. Hypertension. 5. Left subclavian stenosis. 6. Paroxysmal atrial fibrillation. 7. History of gastrointestinal bleed. The patient remains on ventilator support. Will continue with the nutritional and hemodynamics support while enteral feeding. Patient is getting short weaning trials. PLAN: Start making plans for permanent measures if the patient remains on ventilator for next 48-72 hours. MMODL / IJN: [id number] /
[2017-11-28] MEDS: SENNOSIDES-DOCUSATE SODIUM 1 EACH TAB PO SCH (20:41)
[2017-11-28 21:09] LABS: Glucose,Whole Blood 120 mg/dL (75-99)
[2017-11-28 23:30] LABS: Glucose,Whole Blood 119 mg/dL (75-99)
[2017-11-29] MEDS: HEPARIN SODIUM,PORCINE 5,000 UNIT/ML 1 ML VIAL SQ SCH ×2 (00:09→08:54)
[2017-11-29] MEDS: PROPOFOL 1,000 MG in EMPTY BAG 1 BAG IV SCH ×4 (00:09→17:54)
[2017-11-29] MEDS: SODIUM CHLORIDE 0.9% 99 ML with VASOPRESSIN 20 UNIT IV SCH ×2 (00:21)
[2017-11-29] MEDS: MILRINONE-D5W PMX 20 MG in DEXTROSE/WATER 1 100ML.BAG IV SCH ×2 (00:24→15:38)
[2017-11-29 01:05] LABS: Glucose,Whole Blood 119 mg/dL (75-99)
[2017-11-29] MEDS: IPRATROPIUM-ALBUTEROL 3 ML NEB INHALATION SCH ×5 (02:42→19:29)
[2017-11-29 03:20] LABS: Glucose,Whole Blood 115 mg/dL (75-99)
[2017-11-29 04:54] LABS: Glucose,Whole Blood 118 mg/dL (75-99)
[2017-11-29 05:04] LABS: Anisocytosis Slight; HCT 23.7 % (34.0-46.0); HGB 7.3 gm/dL (11.4-16.0); Hypochromasia Moderate; MCH 27.5 pg (25.0-35.0); MCHC 30.6 g/dL (31.0-37.0); MCV 89.8 fL (80.0-100.0); Mean Platelet Volume 9.5; Poikilocytosis Slight; RBC 2.64 m/uL (3.80-5.40); RDW 18.4 % (11.5-15.5)
[2017-11-29 05:07] LABS: Platelet Count 64 k/uL (150-450)
[2017-11-29 05:13] LABS: Prothrombin Time 10.1 sec (9.0-12.0)
[2017-11-29 05:24] LABS: Ionized Calcium 4.6 mg/dL (4.5-5.3)
[2017-11-29 05:39] LABS: Albumin 2.6 g/dL (3.5-5.0); Calcium 7.9 mg/dL (8.4-10.2); Magnesium 2.6 mg/dL (1.6-2.3); Phosphorus 3.8 mg/dL (2.5-4.5); Potassium 3.6 mmol/L (3.5-5.1); Total Bilirubin 0.6 mg/dL (0.2-1.3)
[2017-11-29 06:50] LABS: Glucose,Whole Blood 117 mg/dL (75-99)
[2017-11-29] MEDS ORDERED: POTASSIUM BICARBONATE/CIT AC 20 MEQ TABLET.EFF NG-TUBE SCH ×3 (07:00→20:00)
[2017-11-29 07:24] LABS: Glucose,Whole Blood 147 mg/dL (75-99)
[2017-11-29 08:13] LABS: ABG Base Excess 2.5 mmol/L; ABG HCO3 26 mmol/L (21-25); ABG Oxygen Saturation 99.5 % (94-97); ABG PCO2 36 mmHg (35-45); ABG PH 7.47 (7.35-7.45); ABG PO2 135 mmHg (83-108); ABG TCO2 27 mmol/L (19-24)
[2017-11-29] MEDS: CHLORHEXIDINE GLUCONATE 15 ML CUP MUCOUS MEM SCH ×2 (08:48→20:38)
[2017-11-29] MEDS: AMIODARONE 200 MG TAB PO SCH ×2 (08:54→20:38)
[2017-11-29] MEDS: ASPIRIN 81 MG PO SCH (08:54)
[2017-11-29] MEDS: ATORVASTATIN 40 MG TAB PO SCH (08:54)
[2017-11-29] MEDS: PANTOPRAZOLE 40 MG/10 ML VIAL IVP SCH (08:55)
[2017-11-29] MEDS: METOPROLOL TARTRATE 12.5 MG TAB PO SCH ×2 (08:55→20:38)
[2017-11-29 09:10] LABS: Glucose,Whole Blood 117 mg/dL (75-99)
--- NOTE | 2017-11-29 09:42 | P.PN ---
Subjective Progress Note Date: 11/29/17 Principal diagnosis: Status post one-vessel bypass grafting and mitral valve replacement Progress note dated 11/29/2017 This is a 67-year-old female status post one-vessel bypass grafting and mitral valve replacement. She apparently had surgery on the . Today is postop day #3. The patient currently remains on the mechanical ventilator. Her vent settings are the assist control mode rate of 1210 of I am is 550 FiO2 50% PEEP of 5. Arterial blood gases show a PaO2 of 135 a PaCO2 of 36 and a pH of 7.47. I'm to make a few changes including bumping the rate up from 12 to 20, and decreasing the tidal volume from 550 down to 400, and dropping the FiO2 from 50- 40%. The patient may not be weaned of old low because she remains on insulin drip at 1 unit per hour, Primacor 0.2 mics per kilogram per minute, norepinephrine at 2 mics per minute, half normal saline at 30 mL an hour and propofol at 25 g kilogram per minute. Chest x-rays consistent with fluid overload but bibasilar infiltrates and small effusions and microbiology is negative. The rest of the labs medications and x-rays are all reviewed. Objective - Vital Signs Vital signs: Vital Signs Temp 98.8 F 11/29/17 08:00 Pulse 121 H 11/29/17 09:00 Resp 17 11/29/17 09:00 BP 119/72 11/29/17 09:00 Pulse Ox 96 11/29/17 09:00 Intake & Output 11/28/17 11/29/17 11/29/17 18:59 06:59 18:59 Intake Total 119.819 4869.781 279.980 Output Total 1355 885 130 Balance -497.323 837.781 149.980 Weight 109.7 kg Intake: IV 588 597 88 CO/CI 120 90 10 Pressure Bag 108 117 18 Sodium Chloride 0.45% 1, 360 390 60 000 ml @ 30 mls/hr IV . Q24H [facility] Rx#:[id number] Intake, IV Titration 249.677 470.781 111.980 Amount Albumin Human 25% 50 ml 50 In Empty Bag 1 bag @ 100 mls/hr IVPB ONCE ONE Rx#: [id number] Amiodarone 450 mg In 214.914 Dextrose 5% in Water 250 ml @ 0.5 MG/MIN 16.66 mls /hr IV .Q15H1M [facility] Rx#: [id number] Insulin Regular 100 unit 32.535 6.851 In Sodium Chloride 0.9% 100 ml @ Per Protocol IV .Q0M [facility] Rx#:[id number] Milrinone-D5w Pmx 20 mg 100 47.787 In Dextrose/Water 1 100ml .bag @ Per Protocol IV . Q0M [facility] Rx#:[id number] Norepinephrin 16 mg-0.9% 124.4 35.116 Ns Pmx 16 mg In 250 ml @ Titrate IV .Q0M [facility] Rx#: [id number] Propofol 1,000 mg In 42.742 149.016 29.077 Empty Bag 1 bag @ Titrate IV .Q0M [facility] Rx#: [id number] Tube Feeding 20 430 80 Other 225 Output: Chest Tube Drainage 245 190 30 BL Mediastinal 140 90 20 Left Pleural 105 100 10 Urine 1110 695 100 Other: Voiding Method Indwelling Catheter Indwelling Catheter ABP, PAP, CO, CI - Last Documented Arterial Blood Pressure 100/60 Pulmonary Artery Pressure 36/24 Cardiac Output 4.6 Cardiac Index 2.3 - Exam No acute distress, patient is sedated, and noted is an oral endotracheal tube and NG tube. HEENT examination is grossly unremarkable. Mucous membranes are moist. No oral lesions. Neck supple. Full range of motion. No adenopathy thyromegaly or neck vein distention. Cardiovascular examination reveals regular rhythm rate. S1-S2 normal. No S3 or S4. No discernible murmur noted. Lungs reveal very coarse bilateral breath sounds. Her sounds are equal bilaterally. No wheezes. A few scattered crackles. Abdomen soft bowel sounds are heard. No masses or tenderness. Extremities are intact. No cyanosis clubbing or edema. Skin is without rash or lesion. Neurologic examination could not be adequately assessed as patient is currently sedated - Labs CBC & Chem 7: 11/29/17 04:50 11/29/17 04:50 Labs: Abnormal Lab Results - Last 24 Hours (Table) 11/26/17 11/28/17 11/28/17 Range/Units 00:16 09:54 11:11 WBC (3.8-10.6) k/uL RBC (3.80-5.40) m/uL Hgb (11.4-16.0) gm/dL Hct (34.0-46.0) % MCHC (31.0-37.0) g/dL RDW (11.5-15.5) % Plt Count (150-450) k/uL ABG pH (7.35-7.45) ABG pO2 (83-108) mmHg ABG HCO3 (21-25) mmol/L ABG Total CO2 (19-24) mmol/L ABG O2 Saturation (94-97) % BUN (7-17) mg/dL Creatinine (0.52-1.04) mg/dL Glucose (74-99) mg/dL POC Glucose (mg/dL) 147 H 132 H 117 H (75-99) mg/dL Calcium (8.4-10.2) mg/dL Magnesium (1.6-2.3) mg/dL AST (14-36) U/L Total Protein (6.3-8.2) g/dL Albumin (3.5-5.0) g/dL 11/28/17 11/28/17 11/28/17 Range/Units 11:49 14:10 16:02 WBC (3.8-10.6) k/uL RBC (3.80-5.40) m/uL Hgb (11.4-16.0) gm/dL Hct (34.0-46.0) % MCHC (31.0-37.0) g/dL RDW (11.5-15.5) % Plt Count (150-450) k/uL ABG pH (7.35-7.45) ABG pO2 (83-108) mmHg ABG HCO3 (21-25) mmol/L ABG Total CO2 (19-24) mmol/L ABG O2 Saturation (94-97) % BUN (7-17) mg/dL Creatinine (0.52-1.04) mg/dL Glucose (74-99) mg/dL POC Glucose (mg/dL) 122 H 118 H 118 H (75-99) mg/dL Calcium (8.4-10.2) mg/dL Magnesium (1.6-2.3) mg/dL AST (14-36) U/L Total Protein (6.3-8.2) g/dL Albumin (3.5-5.0) g/dL 11/28/17 11/28/17 11/28/17 Range/Units 17:36 18:59 21:07 WBC (3.8-10.6) k/uL RBC (3.80-5.40) m/uL Hgb (11.4-16.0) gm/dL Hct (34.0-46.0) % MCHC (31.0-37.0) g/dL RDW (11.5-15.5) % Plt Count (150-450) k/uL ABG pH (7.35-7.45) ABG pO2 (83-108) mmHg ABG HCO3 (21-25) mmol/L ABG Total CO2 (19-24) mmol/L ABG O2 Saturation (94-97) % BUN (7-17) mg/dL Creatinine (0.52-1.04) mg/dL Glucose (74-99) mg/dL POC Glucose (mg/dL) 119 H 122 H 120 H (75-99) mg/dL Calcium (8.4-10.2) mg/dL Magnesium (1.6-2.3) mg/dL AST (14-36) U/L Total Protein (6.3-8.2) g/dL Albumin (3.5-5.0) g/dL 11/28/17 11/29/17 11/29/17 Range/Units 23:28 01:03 03:18 WBC (3.8-10.6) k/uL RBC (3.80-5.40) m/uL Hgb (11.4-16.0) gm/dL Hct (34.0-46.0) % MCHC (31.0-37.0) g/dL RDW (11.5-15.5) % Plt Count (150-450) k/uL ABG pH (7.35-7.45) ABG pO2 (83-108) mmHg ABG HCO3 (21-25) mmol/L ABG Total CO2 (19-24) mmol/L ABG O2 Saturation (94-97) % BUN (7-17) mg/dL Creatinine (0.52-1.04) mg/dL Glucose (74-99) mg/dL POC Glucose (mg/dL) 119 H 119 H 115 H (75-99) mg/dL Calcium (8.4-10.2) mg/dL Magnesium (1.6-2.3) mg/dL AST (14-36) U/L Total Protein (6.3-8.2) g/dL Albumin (3.5-5.0) g/dL 11/29/17 11/29/17 11/29/17 Range/Units 04:50 04:50 04:53 WBC 12.0 H (3.8-10.6) k/uL RBC 2.64 L (3.80-5.40) m/uL Hgb 7.3 L (11.4-16.0) gm/dL Hct 23.7 L (34.0-46.0) % MCHC 30.6 L (31.0-37.0) g/dL RDW 18.4 H (11.5-15.5) % Plt Count 64 L (150-450) k/uL ABG pH (7.35-7.45) ABG pO2 (83-108) mmHg ABG HCO3 (21-25) mmol/L ABG Total CO2 (19-24) mmol/L ABG O2 Saturation (94-97) % BUN 49 H (7-17) mg/dL Creatinine 1.31 H (0.52-1.04) mg/dL Glucose 112 H (74-99) mg/dL POC Glucose (mg/dL) 118 H (75-99) mg/dL Calcium 7.9 L (8.4-10.2) mg/dL Magnesium 2.6 H (1.6-2.3) mg/dL AST 109 H (14-36) U/L Total Protein 5.0 L (6.3-8.2) g/dL Albumin 2.6 L (3.5-5.0) g/dL 11/29/17 11/29/17 11/29/17 Range/Units 06:48 08:11 09:06 WBC (3.8-10.6) k/uL RBC (3.80-5.40) m/uL Hgb (11.4-16.0) gm/dL Hct (34.0-46.0) % MCHC (31.0-37.0) g/dL RDW (11.5-15.5) % Plt Count (150-450) k/uL ABG pH 7.47 H (7.35-7.45) ABG pO2 135 H (83-108) mmHg ABG HCO3 26 H (21-25) mmol/L ABG Total CO2 27 H (19-24) mmol/L ABG O2 Saturation 99.5 H (94-97) % BUN (7-17) mg/dL Creatinine (0.52-1.04) mg/dL Glucose (74-99) mg/dL POC Glucose (mg/dL) 117 H 117 H (75-99) mg/dL Calcium (8.4-10.2) mg/dL Magnesium (1.6-2.3) mg/dL AST (14-36) U/L Total Protein (6.3-8.2) g/dL Albumin (3.5-5.0) g/dL Microbiology - Last 24 Hours (Table) 11/26/17 04:00 Gram Stain - Final Sputum Sputum Culture - Final Assessment and Plan Assessment: Assessment Postop day #4, status post one-vessel bypass grafting and mitral valve replacement Postoperative respiratory failure Acute blood loss anemia requiring blood transfusion History of hypertension History of severe mitral regurgitation History of left subclavian stenosis Paroxysmal atrial fibrillation History of GI bleed Obesity Plan: Plan dated 11/29/2017 I will make some vent changes today including repeat increasing the rate from 12 -20, dropping the time of I'm down from 550 mL down to 400 mL and also reducing the FiO2 40%. We'll see if we can wean her off the norepinephrine holding propofol and do a daily eruption of sedation to evaluate for spontaneous breathing trial. Microbiology is negative. Labs x-rays and medications all reviewed. Prognosis is guarded. Additional recommendations and suggestions are forthcoming. I believe she would benefit from some diuretics. Blood gases are reviewed. Time with Patient: Greater than 30
--- NOTE | 2017-11-29 09:58 | XR ---
EXAMINATION TYPE: XR chest 1V portable DATE OF EXAM: 11/29/2017 COMPARISON: Prior chest x-ray 11/28/2016 HISTORY: Post mitral valve replacement TECHNIQUE: Single frontal view of the chest is obtained. FINDINGS: Patient is rotated. Endotracheal tube, NG tube, left chest tube, right jugular central ilene ous sheath and coaxial [place]-Cesario catheter, median sternal drain are overlying appropriate positions. There is no sizable thorax. Bibasilar density is present. There is some improvement in the prominence of the central vascularity and interstitium. Heart remains enlarged, patient is post mitral valve re placement, atrial appendage clipping placement. Left subclavian stent is in place. IMPRESSION: Findings suggest improvement in patient's volume status, aeration. Additional follow-up recommended.
[2017-11-29] MEDS ORDERED: FUROSEMIDE 10 MG/ML 4 ML VIAL IV STA (10:08)
[2017-11-29] MEDS: SODIUM CHLORIDE 0.45% 1,000 ML IV SCH (10:28)
--- NOTE | 2017-11-29 10:35 | P.PN ---
Subjective Progress Note Date: 11/29/17 Principal diagnosis: Severe mitral valve regurgitation. Coronary artery disease. Preoperative paroxysmal atrial fibrillation on outpatient Coumadin for anticoagulation. Recent hospitalization for lower GI bleed, and duodenal ulcer. History of left subclavian stenosis with stent placement 2014 with recent discovery of critical re-in-stent stenosis. Previous tobacco dependence with preoperative FEV1 60% of predicted. Hypertension. Hyperlipidemia. Depression on Lexapro. Gallbladder disease. Family history of heart disease. Preoperative nasal swab positive for MRSA. Preoperative anemia with hemoglobin of 7.6. POD #4 Mitral valve replacement using a 25 mm Ribera bioprosthetic tissue valve. Coronary artery bypass grafting 1, a reverse greater saphenous vein graft to the obtuse marginal coronary artery. Endoscopic harvesting of the left greater saphenous vein. Modified MAZE procedure. The report wasn't back yet not back in Ligation of the left atrial appendage using a 40 mm AtriClip. Epi- aortic ultrasound. Intraoperative transesophageal echocardiogram. Acute blood loss anemia, an expected outcome given patient's preoperative anemia and intraoperative bleeding. Patient is currently laying in bed with her head elevated. She is in no acute distress. She remains intubated with mechanical ventilator support. She remains sedated on a propofol drip at 25 mcg/kg/m. She is opening her eyes to verbal stimuli, and following verbal commands appropriately moving all 4 extremities appropriately. Remains on norepinephrine drip at 2 mcg/m, and Primacor drip at 0.2 mcg/kg/m. The patient was given a sedation holiday yesterday with a weaning trial attempted, although it was unsuccessful due to her asynchronous respirations with mechanical ventilator support. Vital high- protein tube feeding has been started per her OG tube and is running at 40 mL per hour with goal rate of 60 mL per hour. Objective - Vital Signs Vital signs: Vital Signs Temp 97.5 F L 11/28/17 16:00 Pulse 118 H 11/29/17 08:05 Resp 16 11/29/17 06:00 BP 115/52 11/27/17 10:00 Pulse Ox 98 11/29/17 06:00 Intake & Output 11/28/17 11/29/17 11/29/17 18:59 06:59 18:59 Intake Total 218.145 5681.781 35.116 Output Total 1355 885 Balance -497.323 837.781 35.116 Weight 109.7 kg Intake: IV 588 597 CO/CI 120 90 Pressure Bag 108 117 Sodium Chloride 0.45% 1, 360 390 000 ml @ 30 mls/hr IV . Q24H [facility] Rx#:[id number] Intake, IV Titration 249.677 470.781 35.116 Amount Albumin Human 25% 50 ml 50 In Empty Bag 1 bag @ 100 mls/hr IVPB ONCE ONE Rx#: [id number] Amiodarone 450 mg In 214.914 Dextrose 5% in Water 250 ml @ 0.5 MG/MIN 16.66 mls /hr IV .Q15H1M [facility]E Rx#: [id number] Insulin Regular 100 unit 32.535 6.851 In Sodium Chloride 0.9% 100 ml @ Per Protocol IV .Q0M CARLEE Rx#:[id number] Milrinone-D5w Pmx 20 mg 100 In Dextrose/Water 1 100ml .bag @ Per Protocol IV . Q0M [facility]LEE Rx#:[id number] Norepinephrin 16 mg-0.9% 124.4 35.116 Ns Pmx 16 mg In 250 ml @ Titrate IV .Q0M CARLEE Rx#: [id number] Propofol 1,000 mg In 42.742 149.016 Empty Bag 1 bag @ Titrate IV .Q0M [facility]LEE Rx#: [id number] Tube Feeding 20 430 Other 225 Output: Chest Tube Drainage 245 190 BL Mediastinal 140 90 Left Pleural 105 100 Urine 1110 695 Other: Voiding Method Indwelling Catheter Indwelling Catheter ABP, PAP, CO, CI - Last Documented Arterial Blood Pressure 116/55 Pulmonary Artery Pressure 37/25 Cardiac Output 5 Cardiac Index 2.5 - Constitutional Constitutional Comment(s): The patient remains sedated with propofol at 25 mcg/kg/m. General appearance: Present: cooperative, no acute distress, obese - EENT Eyes: Present: PERRLA ENT: Present: hearing grossly normal - Neck Details: No JVD, no lymphadenopathy, neck is supple. Right IJ Cordis with [place]-Cesario catheter in place. - Respiratory Details: Lung sounds with few scattered rhonchi throughout, diminished bilateral bases. Respirations are symmetrical and nonlabored with mechanical ventilator support. Current ventilator settings are as follows: Assist control 12, TV 550, FiO2 50 %, PEEP of 5. Oxygen saturations are 99% with current FiO2 support. ABG results from this a.m. are pH 7.47/pCO2 36/PO2 135/HCO3 26/O2 saturation 99.5/ base excess 2.5. Mediastinal chest and left chest tubes remained to low continuous wall suction -20 cm H2O. No air leak present. Draining thin serosanguineous drainage. Mediastinal chest tubes with 70 mL output in the last 8 hours, 250 mL output in the last 24 hours. Left pleural chest tube with 90 mL output in the last 8 hours, 130 mL output in the last 24 hours. - Cardiovascular Details: Regular rhythm and rate. S1 and S2 present, negative for S3, gallop or murmur. Sternum is stable. Bedside telemetry showing sinus tachycardia heart rate 118. Atrial and ventricular epicardial pacemaker wires intact and placed to backup pacemaker generator. Heart hugger's in place. Current cardiac output is 5.0, cardiac index 2.5, PA pressures 38/25, CVP 16, SVR 975. Knee-high DANTIZA hose and sequential compression devices in place to her bilateral lower extremities. +1 to +2 generalized edema. Primacor drip remains at 0.2 mcg/kg/m , and norepinephrine drip is at 4 mics per minute. - Gastrointestinal Gastrointestinal Comment(s): Abdomen is soft, nontender and nondistended. Hypoactive bowel sounds all 4 abdominal quadrants. OG tube in place with vital high-protein tube feeding infusing at 40 mL per hour. Her tube feedings will be increased as tolerated to goal rate of 60 mL per hour. No bowel movement since surgery. - Genitourinary Genitourinary Comment(s): Mason catheter for accurate I&O. Clear yellow urine. 455 L output in the last 8 hours. The patient was given albumin 25% followed by Lasix 40 mg IV 1 yesterday and diuresed 825 mL. - Integumentary Integumentary Comment(s): Midline sternal incision clean dry and well approximated. No drainage or redness present. Dermabond dressing clean and dry. Left leg EVH site clean dry and well approximated. No drainage or redness present. Skin is warm, dry and pink. Small abrasion to her left buttock's clean and dry. - Neurologic Neurologic Comment(s): Patient remains sedated with the prevent drip at 25 mcg/kg/m. She is following verbal commands appropriately. She is moving all 4 extremities appropriately with verbal stimuli. Opens up her eyes with verbal stimuli and nods her head yes and no appropriately to questions. - Musculoskeletal Musculoskeletal: Present: generalized weakness - Allied health notes Allied health notes reviewed: nursing - Labs CBC & Chem 7: 11/29/17 04:50 11/29/17 04:50 Labs: Abnormal Lab Results - Last 24 Hours (Table) 11/26/17 11/28/17 11/28/17 Range/Units 00:16 08:29 08:41 WBC (3.8-10.6) k/uL RBC (3.80-5.40) m/uL Hgb (11.4-16.0) gm/dL Hct (34.0-46.0) % MCHC (31.0-37.0) g/dL RDW (11.5-15.5) % Plt Count (150-450) k/uL ABG Total CO2 26 H (19-24) mmol/L ABG O2 Saturation 98.1 H (94-97) % BUN (7-17) mg/dL Creatinine (0.52-1.04) mg/dL Glucose (74-99) mg/dL POC Glucose (mg/dL) 147 H 114 H (75-99) mg/dL Calcium (8.4-10.2) mg/dL Magnesium (1.6-2.3) mg/dL AST (14-36) U/L Total Protein (6.3-8.2) g/dL Albumin (3.5-5.0) g/dL 11/28/17 11/28/17 11/28/17 Range/Units 08:54 09:54 11:11 WBC (3.8-10.6) k/uL RBC (3.80-5.40) m/uL Hgb (11.4-16.0) gm/dL Hct (34.0-46.0) % MCHC (31.0-37.0) g/dL RDW (11.5-15.5) % Plt Count (150-450) k/uL ABG Total CO2 (19-24) mmol/L ABG O2 Saturation (94-97) % BUN (7-17) mg/dL Creatinine (0.52-1.04) mg/dL Glucose (74-99) mg/dL POC Glucose (mg/dL) 120 H 132 H 117 H (75-99) mg/dL Calcium (8.4-10.2) mg/dL Magnesium (1.6-2.3) mg/dL AST (14-36) U/L Total Protein (6.3-8.2) g/dL Albumin (3.5-5.0) g/dL 11/28/17 11/28/17 11/28/17 Range/Units 11:49 14:10 16:02 WBC (3.8-10.6) k/uL RBC (3.80-5.40) m/uL Hgb (11.4-16.0) gm/dL Hct (34.0-46.0) % MCHC (31.0-37.0) g/dL RDW (11.5-15.5) % Plt Count (150-450) k/uL ABG Total CO2 (19-24) mmol/L ABG O2 Saturation (94-97) % BUN (7-17) mg/dL Creatinine (0.52-1.04) mg/dL Glucose (74-99) mg/dL POC Glucose (mg/dL) 122 H 118 H 118 H (75-99) mg/dL Calcium (8.4-10.2) mg/dL Magnesium (1.6-2.3) mg/dL AST (14-36) U/L Total Protein (6.3-8.2) g/dL Albumin (3.5-5.0) g/dL 11/28/17 11/28/17 11/28/17 Range/Units 17:36 18:59 21:07 WBC (3.8-10.6) k/uL RBC (3.80-5.40) m/uL Hgb (11.4-16.0) gm/dL Hct (34.0-46.0) % MCHC (31.0-37.0) g/dL RDW (11.5-15.5) % Plt Count (150-450) k/uL ABG Total CO2 (19-24) mmol/L ABG O2 Saturation (94-97) % BUN (7-17) mg/dL Creatinine (0.52-1.04) mg/dL Glucose (74-99) mg/dL POC Glucose (mg/dL) 119 H 122 H 120 H (75-99) mg/dL Calcium (8.4-10.2) mg/dL Magnesium (1.6-2.3) mg/dL AST (14-36) U/L Total Protein (6.3-8.2) g/dL Albumin (3.5-5.0) g/dL 11/28/17 11/29/17 11/29/17 Range/Units 23:28 01:03 03:18 WBC (3.8-10.6) k/uL RBC (3.80-5.40) m/uL Hgb (11.4-16.0) gm/dL Hct (34.0-46.0) % MCHC (31.0-37.0) g/dL RDW (11.5-15.5) % Plt Count (150-450) k/uL ABG Total CO2 (19-24) mmol/L ABG O2 Saturation (94-97) % BUN (7-17) mg/dL Creatinine (0.52-1.04) mg/dL Glucose (74-99) mg/dL POC Glucose (mg/dL) 119 H 119 H 115 H (75-99) mg/dL Calcium (8.4-10.2) mg/dL Magnesium (1.6-2.3) mg/dL AST (14-36) U/L Total Protein (6.3-8.2) g/dL Albumin (3.5-5.0) g/dL 11/29/17 11/29/17 11/29/17 Range/Units 04:50 04:50 04:53 WBC 12.0 H (3.8-10.6) k/uL RBC 2.64 L (3.80-5.40) m/uL Hgb 7.3 L (11.4-16.0) gm/dL Hct 23.7 L (34.0-46.0) % MCHC 30.6 L (31.0-37.0) g/dL RDW 18.4 H (11.5-15.5) % Plt Count 64 L (150-450) k/uL ABG Total CO2 (19-24) mmol/L ABG O2 Saturation (94-97) % BUN 49 H (7-17) mg/dL Creatinine 1.31 H (0.52-1.04) mg/dL Glucose 112 H (74-99) mg/dL POC Glucose (mg/dL) 118 H (75-99) mg/dL Calcium 7.9 L (8.4-10.2) mg/dL Magnesium 2.6 H (1.6-2.3) mg/dL AST 109 H (14-36) U/L Total Protein 5.0 L (6.3-8.2) g/dL Albumin 2.6 L (3.5-5.0) g/dL 11/29/17 Range/Units 06:48 WBC (3.8-10.6) k/uL RBC (3.80-5.40) m/uL Hgb (11.4-16.0) gm/dL Hct (34.0-46.0) % MCHC (31.0-37.0) g/dL RDW (11.5-15.5) % Plt Count (150-450) k/uL ABG Total CO2 (19-24) mmol/L ABG O2 Saturation (94-97) % BUN (7-17) mg/dL Creatinine (0.52-1.04) mg/dL Glucose (74-99) mg/dL POC Glucose (mg/dL) 117 H (75-99) mg/dL Calcium (8.4-10.2) mg/dL Magnesium (1.6-2.3) mg/dL AST (14-36) U/L Total Protein (6.3-8.2) g/dL Albumin (3.5-5.0) g/dL Microbiology - Last 24 Hours (Table) 11/26/17 04:00 Gram Stain - Final Sputum Sputum Culture - Final - Imaging and Cardiology Chest x-ray: report reviewed, image reviewed Assessment and Plan (1) Acute blood loss as cause of postoperative anemia Current Visit: Yes Status: Acute Code(s): D62 - ACUTE POSTHEMORRHAGIC ANEMIA SNOMED Code(s): 35067446868725511 (2) CAD (coronary artery disease) Current Visit: Yes Status: Chronic Code(s): I25.10 - ATHSCL HEART DISEASE OF [place] CORONARY ARTERY W/O ANG PCTRS SNOMED Code(s): 56607338 (3) Family history of coronary artery disease Current Visit: Yes Status: Chronic Code(s): Z82.49 - FAMILY HX OF ISCHEM HEART DIS AND OTH DIS OF THE CIRC SYS SNOMED Code(s): 521285031 (4) Hyperlipidemia Current Visit: Yes Status: Chronic Code(s): E78.5 - HYPERLIPIDEMIA, UNSPECIFIED SNOMED Code(s): 26258882 (5) Hypertension Current Visit: Yes Status: Chronic Code(s): I10 - ESSENTIAL (PRIMARY) HYPERTENSION SNOMED Code(s): 97276424 (6) Severe mitral regurgitation Current Visit: Yes Status: Chronic Code(s): I34.0 - NONRHEUMATIC MITRAL ( VALVE) INSUFFICIENCY SNOMED Code(s): 13010089 (7) Stenosis of left subclavian artery Current Visit: Yes Status: Chronic Code(s): I77.1 - STRICTURE OF ARTERY SNOMED Code(s): 980527867 (8) PAD (peripheral artery disease) Current Visit: No Status: Acute Code(s): I73.9 - PERIPHERAL VASCULAR DISEASE , UNSPECIFIED SNOMED Code(s): 389781635 (9) History of GI bleed Current Visit: No Status: Resolved Code(s): Z87.19 - PERSONAL HISTORY OF OTHER DISEASES OF THE DIGESTIVE SYSTEM SNOMED Code(s): 104629414 (10) Paroxysmal atrial fibrillation Current Visit: No Status: Resolved Code(s): I48.0 - PAROXYSMAL ATRIAL FIBRILLATION SNOMED Code(s): 893177213 (11) Elevated aspartate aminotransferase level Current Visit: Yes Status: Acute Code(s): R74.0 - NONSPEC ELEV OF LEVELS OF TRANSAMNS & LACTIC ACID DEHYDRGNSE SNOMED Code(s): 164956542 Plan: 1. Continue norepinephrine drip wean as tolerated, we will decrease her Primacor drip to 0.1 mcg/kg/m and wean Primacor to off. 2. Change amiodarone 200 mg per OG tube twice a day for history of paroxysmal atrial fibrillation on home amiodarone. 3. Mechanical ventilation management per pulmonology, Dr. Garcia's recommendations. 4. GI/DVT prophylaxis. 5. We will continue metoprolol 12.5 mg per OG tube twice a day today. 6. Keep mediastinal and left pleural chest tubes in place today to low continuous wall suction -20 [place] H2O. 7. Will monitor daily labs, and chest x-rays. 8. Continue mupirocin for preoperative MRSA positive nasal swab. 9. Avoid nephrotoxic medications. 10. Patient is currently critical but relatively stable, will continue to monitor very closely. 11. Continue Lipitor despite elevated AST. AST trending down. 12. Continue low dose aspirin, discontinue her heparin subcu and send a HIT panel as her platelets are 64 today 13. Postoperative limited 2-D echocardiogram on 11/26/2017 shows an ejection fraction of 45-50%. 14. Continue tube feedings vital high-protein. Per dietitian recommendations. 15. Replace potassium per protocol. 16. Lasix 40 mg IV 1 now. 17. More recommendations as patient progresses in her care. Time with Patient: Greater than 30
[2017-11-29 11:07] LABS: Glucose,Whole Blood 111 mg/dL (75-99)
[2017-11-29] MEDS ORDERED: Potassium Replacement Protocol 1 EACH MISC MISCELLANE PRN (12:01)
[2017-11-29] MEDS: INSULIN ASPART 100 UNIT/ML 1 ML 10 ML VIAL SQ SCH ×2 (12:36→19:30)
[2017-11-29] MEDS ORDERED: MORPHINE ORAL SOLN 10 MG/5 ML CUP PO PRN (13:31)
[2017-11-29 16:30] LABS: ABG Base Excess 3.9 mmol/L; ABG HCO3 28 mmol/L (21-25); ABG Oxygen Saturation 94.9 % (94-97); ABG PCO2 40 mmHg (35-45); ABG PH 7.45 (7.35-7.45); ABG PO2 74 mmHg (83-108); ABG TCO2 29 mmol/L (19-24)
[2017-11-29] MEDS: NOREPINEPHRIN 16 MG-0.9%NS PMX 16 MG/250 ML ML IV SCH (17:54)
[2017-11-29 18:16] LABS: Glucose,Whole Blood 116 mg/dL (75-99)
[2017-11-29 19:31] LABS: Glucose,Whole Blood 123 mg/dL (75-99)
[2017-11-29] MEDS ORDERED: FUROSEMIDE 10 MG/ML 4 ML VIAL IV ONE (20:00)
--- NOTE | 2017-11-29 20:34 | PN ---
PROGRESS NOTE This lady had mitral valve replacement. She is recovering slowly. Weaning efforts are in place. Hemodynamically she is stable. She is using much less pressor. Remains in atrial flutter. Rate is better controlled. She is on amiodarone. Blood pressure is 110 systolic. S1, S2 heard normally. Irregular rate and rhythm noted. Short systolic murmur noted. Lungs reveal bilateral air entry with the respirator. Abdomen is soft. Lower extremities reveal diminished pulses. Rest of physical exam unchanged. Plan is to continue current medical regimen, and weaning efforts are already in place by Pulmonology. Prognosis remains guarded. MMODL / IJN: [id number] /
[2017-11-29] MEDS: SENNOSIDES-DOCUSATE SODIUM 1 EACH TAB PO SCH (20:40)
[2017-11-30 00:05] LABS: Glucose,Whole Blood 122 mg/dL (75-99)
[2017-11-30] MEDS: INSULIN ASPART 100 UNIT/ML 1 ML 10 ML VIAL SQ SCH ×4 (00:55→18:15)
[2017-11-30] MEDS ORDERED: POTASSIUM BICARBONATE/CIT AC 20 MEQ TABLET.EFF NG-TUBE SCH (01:00)
[2017-11-30] MEDS: IPRATROPIUM-ALBUTEROL 3 ML NEB INHALATION SCH ×7 (01:15→23:42)
[2017-11-30 04:44] LABS: Anisocytosis Slight; Hypochromasia Marked; MCH 26.9 pg (25.0-35.0); MCHC 30.5 g/dL (31.0-37.0); MCV 88.2 fL (80.0-100.0); Mean Platelet Volume 10.2; Poikilocytosis Moderate; RBC 2.53 m/uL (3.80-5.40); RDW 18.4 % (11.5-15.5)
[2017-11-30 04:50] LABS: Platelet Count 74 k/uL (150-450)
[2017-11-30 04:52] LABS: ALT 34 U/L (9-52); AST 76 U/L (14-36); Albumin 2.5 g/dL (3.5-5.0); Alkaline Phosphatase 87 U/L (38-126); Anion Gap 6 mmol/L; Blood Urea Nitrogen 49 mg/dL (7-17); Calcium 7.8 mg/dL (8.4-10.2); Carbon Dioxide 31 mmol/L (22-30); Chloride 103 mmol/L (98-107); Glucose 116 mg/dL (74-99); HCT 23.2 % (34.0-46.0); Magnesium 2.4 mg/dL (1.6-2.3); Phosphorus 2.9 mg/dL (2.5-4.5); Sodium 140 mmol/L (137-145); Total Bilirubin 0.5 mg/dL (0.2-1.3); Total Protein 4.9 g/dL (6.3-8.2)
[2017-11-30 05:09] LABS: ABG Base Excess 5.5 mmol/L; ABG HCO3 29 mmol/L (21-25); ABG Oxygen Saturation 97.4 % (94-97); ABG PCO2 41 mmHg (35-45); ABG PH 7.46 (7.35-7.45); ABG PO2 94 mmHg (83-108); ABG TCO2 31 mmol/L (19-24)
[2017-11-30 05:57] LABS: Glucose,Whole Blood 112 mg/dL (75-99)
[2017-11-30] MEDS: PROPOFOL 1,000 MG in EMPTY BAG 1 BAG IV SCH (06:53)
[2017-11-30] MEDS: MILRINONE-D5W PMX 20 MG in DEXTROSE/WATER 1 100ML.BAG IV SCH ×2 (06:54→22:43)
[2017-11-30] MEDS: AMIODARONE 200 MG TAB PO SCH ×2 (08:14→20:23)
[2017-11-30] MEDS: ATORVASTATIN 40 MG TAB PO SCH (08:14)
[2017-11-30] MEDS: CHLORHEXIDINE GLUCONATE 15 ML CUP MUCOUS MEM SCH (08:14)
[2017-11-30] MEDS: METOPROLOL TARTRATE 12.5 MG TAB PO SCH ×2 (08:15→20:23)
[2017-11-30] MEDS: PANTOPRAZOLE 40 MG/10 ML VIAL IVP SCH (08:15)
[2017-11-30] MEDS: ASPIRIN 81 MG PO SCH (08:15)
--- NOTE | 2017-11-30 08:39 | XR ---
EXAMINATION TYPE: XR chest 1V portable DATE OF EXAM: 11/30/2017 COMPARISON: 11/29/2017 HISTORY: Postop TECHNIQUE: Single frontal view of the chest is obtained. FINDINGS: Bilateral consolidation, pleural effusion and diffuse interstitial pattern noted. Vascular stents noted. ET and NG tube, postsurgical change, mediastinal drain, [place]-Cesario catheter, and chest tube stable in position. IMPRESSION: 1. Stable postoperative change 2. Bilateral infiltrate and pleural effusion correlate for CHF.
[2017-11-30] MEDS ORDERED: FUROSEMIDE 10 MG/ML 4 ML VIAL IV STA (09:24)
--- NOTE | 2017-11-30 09:27 | P.PN ---
Subjective Progress Note Date: 11/30/17 Principal diagnosis: Status post one-vessel bypass grafting and mitral valve replacement Progress note dated 11/29/2017 This is a 67-year-old female status post one-vessel bypass grafting and mitral valve replacement. She apparently had surgery on the . Today is postop day #3. The patient currently remains on the mechanical ventilator. Her vent settings are the assist control mode rate of 1210 of I am is 550 FiO2 50% PEEP of 5. Arterial blood gases show a PaO2 of 135 a PaCO2 of 36 and a pH of 7.47. I'm to make a few changes including bumping the rate up from 12 to 20, and decreasing the tidal volume from 550 down to 400, and dropping the FiO2 from 50- 40%. The patient may not be weaned of old low because she remains on insulin drip at 1 unit per hour, Primacor 0.2 mics per kilogram per minute, norepinephrine at 2 mics per minute, half normal saline at 30 mL an hour and propofol at 25 g kilogram per minute. Chest x-rays consistent with fluid overload but bibasilar infiltrates and small effusions and microbiology is negative. The rest of the labs medications and x-rays are all reviewed. Progress note dated 11/30/2017 This is a 67-year-old female status post one-vessel bypass grafting and mitral valve replacement. She had surgery on the . She is postop day #4. She remains on mechanical ventilator. Yesterday, her chest x-ray showed evidence of fluid overload. She did get some diuretics. Today's chest x-ray still shows evidence of fluid overload although it might be slightly improved. She's currently still on the mechanical ventilator on the assist control mode, rate of 26, tidal volume 400, PEEP of 8, FiO2 40%. The patient's arterial blood gases show a PaO2 of 94 and pH 7.46 in a PaCO2 of 41. The patient will get a daily eruption of sedation and a spontaneous breathing trial. The patient remains on norepinephrine at 3 mcg/m, propofol at 30 mics per kilogram per minute, Primacor 0.2 mics per kilogram per minute, half normal saline IV at 15 mL an hour and vital 1.2 at 60 with a goal of 60 mL an hour. The patient failed her spontaneous breathing trial yesterday very quickly, and afterwards, she became dyssynchronous with the ventilator and I had to bump up the PEEP level to 8 and increase her respiratory rate to 26. We also dropped the tidal volume down to 400. She is much more in synchrony today. Objective - Vital Signs Vital signs: Vital Signs Temp 99.0 F 11/29/17 17:00 Pulse 117 H 11/30/17 09:00 Resp 25 H 11/30/17 09:00 BP 81/40 11/29/17 15:00 Pulse Ox 100 11/30/17 09:00 Intake & Output 11/29/17 11/30/17 11/30/17 18:59 06:59 18:59 Intake Total 496.304 7174 793.424 Output Total 1405 1540 210 Balance -456.024 373 583.424 Weight 109.9 kg Intake: IV 498 558 92 CO/CI 30 90 20 Pressure Bag 108 108 27 Sodium Chloride 0.45% 1, 360 360 45 000 ml @ 30 mls/hr IV . Q24H [facility] Rx#:[id number] Intake, IV Titration 220.976 200 76.424 Amount Milrinone-D5w Pmx 20 mg 100 8.993 In Dextrose/Water 1 100ml .bag @ 0.2 MCG/KG/MIN 6. 58 mls/hr IV .[id number] [facility]E Rx#:[id number] Milrinone-D5w Pmx 20 mg 50.494 In Dextrose/Water 1 100ml .bag @ Per Protocol IV . Q0M [facility] Rx#:[id number] Norepinephrin 16 mg-0.9% 55.147 26.906 Ns Pmx 16 mg In 250 ml @ Titrate IV .Q0M [facility]E Rx#: [id number] Propofol 1,000 mg In 115.335 100 40.525 Empty Bag 1 bag @ Titrate IV .Q0M [facility] Rx#: [id number] Tube Feeding 230 930 240 Blood Product 310 Rc As-1 Unit 310 [id number] Other 225 75 Output: Chest Tube Drainage 130 140 10 BL Mediastinal 80 20 10 Left Pleural 50 120 0 Urine 1275 1400 200 Other: Voiding Method Indwelling Catheter Indwelling Catheter ABP, PAP, CO, CI - Last Documented Arterial Blood Pressure 109/56 Pulmonary Artery Pressure 38/30 Cardiac Output 5.8 Cardiac Index 2.9 - Exam No acute distress, patient is sedated, and noted is an oral endotracheal tube and NG tube. HEENT examination is grossly unremarkable. Mucous membranes are moist. No oral lesions. Neck supple. Full range of motion. No adenopathy thyromegaly or neck vein distention. Cardiovascular examination reveals regular rhythm rate. S1-S2 normal. No S3 or S4. No discernible murmur noted. Lungs reveal very coarse bilateral breath sounds. Her sounds are equal bilaterally. No wheezes. A few scattered crackles. Abdomen soft bowel sounds are heard. No masses or tenderness. Extremities are intact. No cyanosis clubbing or edema. Skin is without rash or lesion. Neurologic examination could not be adequately assessed as patient is currently sedated - Labs CBC & Chem 7: 11/30/17 04:30 11/30/17 04:30 Labs: Abnormal Lab Results - Last 24 Hours (Table) 11/23/17 11/29/17 11/29/17 Range/Units 08:19 11:06 16:25 WBC (3.8-10.6) k/uL RBC (3.80-5.40) m/uL Hgb (11.4-16.0) gm/dL Hct (34.0-46.0) % MCHC (31.0-37.0) g/dL RDW (11.5-15.5) % Plt Count (150-450) k/uL ABG pH (7.35-7.45) ABG pO2 74 L (83-108) mmHg ABG HCO3 28 H (21-25) mmol/L ABG Total CO2 29 H (19-24) mmol/L ABG O2 Saturation (94-97) % Carbon Dioxide (22-30) mmol/L BUN (7-17) mg/dL Creatinine (0.52-1.04) mg/dL Glucose (74-99) mg/dL POC Glucose (mg/dL) 111 H (75-99) mg/dL Calcium (8.4-10.2) mg/dL Magnesium (1.6-2.3) mg/dL AST (14-36) U/L Total Protein (6.3-8.2) g/dL Albumin (3.5-5.0) g/dL Crossmatch See Detail 11/29/17 11/29/17 11/30/17 Range/Units 18:13 19:29 00:03 WBC (3.8-10.6) k/uL RBC (3.80-5.40) m/uL Hgb (11.4-16.0) gm/dL Hct (34.0-46.0) % MCHC (31.0-37.0) g/dL RDW (11.5-15.5) % Plt Count (150-450) k/uL ABG pH (7.35-7.45) ABG pO2 (83-108) mmHg ABG HCO3 (21-25) mmol/L ABG Total CO2 (19-24) mmol/L ABG O2 Saturation (94-97) % Carbon Dioxide (22-30) mmol/L BUN (7-17) mg/dL Creatinine (0.52-1.04) mg/dL Glucose (74-99) mg/dL POC Glucose (mg/dL) 116 H 123 H 122 H (75-99) mg/dL Calcium (8.4-10.2) mg/dL Magnesium (1.6-2.3) mg/dL AST (14-36) U/L Total Protein (6.3-8.2) g/dL Albumin (3.5-5.0) g/dL Crossmatch 11/30/17 11/30/17 11/30/17 Range/Units 04:30 04:30 05:04 WBC 11.0 H (3.8-10.6) k/uL RBC 2.53 L (3.80-5.40) m/uL Hgb 7.0 L* (11.4-16.0) gm/dL Hct 23.2 L (34.0-46.0) % MCHC 30.5 L (31.0-37.0) g/dL RDW 18.4 H (11.5-15.5) % Plt Count 74 L (150-450) k/uL ABG pH 7.46 H (7.35-7.45) ABG pO2 (83-108) mmHg ABG HCO3 29 H (21-25) mmol/L ABG Total CO2 31 H (19-24) mmol/L ABG O2 Saturation 97.4 H (94-97) % Carbon Dioxide 31 H (22-30) mmol/L BUN 49 H (7-17) mg/dL Creatinine 1.10 H (0.52-1.04) mg/dL Glucose 116 H (74-99) mg/dL POC Glucose (mg/dL) (75-99) mg/dL Calcium 7.8 L (8.4-10.2) mg/dL Magnesium 2.4 H (1.6-2.3) mg/dL AST 76 H (14-36) U/L Total Protein 4.9 L (6.3-8.2) g/dL Albumin 2.5 L (3.5-5.0) g/dL Crossmatch 11/30/17 Range/Units 05:54 WBC (3.8-10.6) k/uL RBC (3.80-5.40) m/uL Hgb (11.4-16.0) gm/dL Hct (34.0-46.0) % MCHC (31.0-37.0) g/dL RDW (11.5-15.5) % Plt Count (150-450) k/uL ABG pH (7.35-7.45) ABG pO2 (83-108) mmHg ABG HCO3 (21-25) mmol/L ABG Total CO2 (19-24) mmol/L ABG O2 Saturation (94-97) % Carbon Dioxide (22-30) mmol/L BUN (7-17) mg/dL Creatinine (0.52-1.04) mg/dL Glucose (74-99) mg/dL POC Glucose (mg/dL) 112 H (75-99) mg/dL Calcium (8.4-10.2) mg/dL Magnesium (1.6-2.3) mg/dL AST (14-36) U/L Total Protein (6.3-8.2) g/dL Albumin (3.5-5.0) g/dL Crossmatch Assessment and Plan Assessment: Assessment Postop day #4, status post one-vessel bypass grafting and mitral valve replacement Postoperative respiratory failure with failure to wean. Chest x-ray evidence of fluid overload Acute blood loss anemia requiring blood transfusion History of hypertension History of severe mitral regurgitation History of left subclavian stenosis Paroxysmal atrial fibrillation History of GI bleed Obesity Plan: Plan dated 11/29/2017 I will make some vent changes today including repeat increasing the rate from 12 -20, dropping the time of I'm down from 550 mL down to 400 mL and also reducing the FiO2 40%. We'll see if we can wean her off the norepinephrine holding propofol and do a daily eruption of sedation to evaluate for spontaneous breathing trial. Microbiology is negative. Labs x-rays and medications all reviewed. Prognosis is guarded. Additional recommendations and suggestions are forthcoming. I believe she would benefit from some diuretics. Blood gases are reviewed. Plan dated 11/30/2017 The patient will again have a daily eruption of sedation with a spontaneous breathing trial. She still remains on a number of different IV medications including norepinephrine, fall, Primacor. Arterial blood gases today are very reasonable. Her vent settings were adjusted yesterday. She's getting nourishment. We'll continue to follow closely. Labs x-rays a medications are reviewed. Hopeful improvement in the next day or so and eventual extubation. Time with Patient: Greater than 30
[2017-11-30 10:21] LABS: ABG HCO3 29 mmol/L (21-25); ABG Oxygen Saturation 99.4 % (94-97); ABG PCO2 40 mmHg (35-45); ABG PH 7.47 (7.35-7.45); ABG PO2 103 mmHg (83-108); ABG TCO2 30 mmol/L (19-24)
[2017-11-30] MEDS ORDERED: methylPREDNISolone SOD SUCCI 125 MG/2 ML VIAL IV STA (11:36)
[2017-11-30] MEDS ORDERED: MORPHINE SULFATE 4 MG/ML SYRINGE ONE (11:44)
[2017-11-30 12:17] LABS: Glucose,Whole Blood 106 mg/dL (75-99)
--- NOTE | 2017-11-30 12:40 | PN ---
PROGRESS NOTE Mrs. Sadler is in atrial flutter with 3:1 block, hemodynamically stable, making fair amount of urine clinically about the same. Chest x-ray shows slight more congestion. She has been given additional dose of Lasix. S1, S2 heard normally but distantly. Lungs reveal bilateral air entry induced by the respirator. Abdomen is soft. Lower extremities reveal diminished pulses. Overall, we will continue current medical regimen. Prognosis remains guarded. MMODL / IJN: [id number] /
--- NOTE | 2017-11-30 12:47 | P.PN ---
Subjective Progress Note Date: 11/30/17 Principal diagnosis: Severe mitral valve regurgitation. Coronary artery disease. Preoperative paroxysmal atrial fibrillation on outpatient Coumadin for anticoagulation. Recent hospitalization for lower GI bleed, and duodenal ulcer. History of left subclavian stenosis with stent placement 2014 with recent discovery of critical re-in-stent stenosis. Previous tobacco dependence with preoperative FEV1 60% of predicted. Hypertension. Hyperlipidemia. Depression on Lexapro. Gallbladder disease. Family history of heart disease. Preoperative nasal swab positive for MRSA. Preoperative anemia with hemoglobin of 7.6. POD #5 Mitral valve replacement using a 25 mm Ribera bioprosthetic tissue valve. Coronary artery bypass grafting 1, a reverse greater saphenous vein graft to the obtuse marginal coronary artery. Endoscopic harvesting of the left greater saphenous vein. Modified MAZE procedure. The report wasn't back yet not back in Ligation of the left atrial appendage using a 40 mm AtriClip. Epi- aortic ultrasound. Intraoperative transesophageal echocardiogram. Acute blood loss anemia, an expected outcome given patient's preoperative anemia and intraoperative bleeding. Patient is currently laying in bed with her head elevated. She is in no acute distress. She remains intubated with mechanical ventilator support. She remains sedated on a propofol drip at 30 mcg/kg/m. She is opening her eyes to verbal stimuli, and following verbal commands appropriately moving all 4 extremities appropriately. Remains on norepinephrine drip at 3 mcg/m, and Primacor drip at 0.2 mcg/kg/m. The patient was given a sedation holiday yesterday with a weaning trial attempted, the patient tolerated well for 15 minutes. Vital high-protein tube feeding remains per her OG tube and is running at goal rate of 60 mL per hour. She remains afebrile. Sputum for Gram stain from 11/26/2017 shows no growth after 48 hours. Objective - Vital Signs Vital signs: Vital Signs Temp 99.0 F 11/29/17 17:00 Pulse 117 H 11/30/17 08:00 Resp 25 H 11/30/17 08:00 BP 81/40 11/29/17 15:00 Pulse Ox 99 11/30/17 08:00 Intake & Output 11/29/17 11/30/17 11/30/17 18:59 06:59 18:59 Intake Total 926.085 2915 692.406 Output Total 1405 1540 160 Balance -456.024 373 532.406 Weight 109.9 kg Intake: IV 498 558 68 CO/CI 30 90 20 Pressure Bag 108 108 18 Sodium Chloride 0.45% 1, 360 360 30 000 ml @ 30 mls/hr IV . Q24H CARLEE Rx#:[id number] Intake, IV Titration 220.976 200 59.406 Amount Milrinone-D5w Pmx 20 mg 100 8.993 In Dextrose/Water 1 100ml .bag @ 0.2 MCG/KG/MIN 6. 58 mls/hr IV .[id number] CARLEE Rx#:[id number] Milrinone-D5w Pmx 20 mg 50.494 In Dextrose/Water 1 100ml .bag @ Per Protocol IV . Q0M CARLEE Rx#:[id number] Norepinephrin 16 mg-0.9% 55.147 26.906 Ns Pmx 16 mg In 250 ml @ Titrate IV .Q0M CARLEE Rx#: [id number] Propofol 1,000 mg In 115.335 100 23.507 Empty Bag 1 bag @ Titrate IV .Q0M CARLEE Rx#: [id number] Tube Feeding 230 930 180 Blood Product 310 Rc As-1 Unit 310 [id number] Other 225 75 Output: Chest Tube Drainage 130 140 10 BL Mediastinal 80 20 10 Left Pleural 50 120 0 Urine 1275 1400 150 Other: Voiding Method Indwelling Catheter Indwelling Catheter ABP, PAP, CO, CI - Last Documented Arterial Blood Pressure 109/56 Pulmonary Artery Pressure 36/26 Cardiac Output 5.8 Cardiac Index 2.9 - Constitutional Constitutional Comment(s): The patient remains with mechanical ventilator support. She is sedated with Diprivan at 30 mcg/kg/m. General appearance: Present: cooperative, no acute distress, obese - EENT Eyes: Present: PERRLA ENT: Present: hearing grossly normal - Neck Details: Neck is supple, no JVD or lymphadenopathy. Right IJ Cordis with [place]-Cesario catheter in place. - Respiratory Details: Lung sounds with few scattered rhonchi throughout, diminished her bilateral bases. Respirations are symmetrical and nonlabored with mechanical ventilator support. Current ventilator settings are as follows: Assist control 26, TV 400 , FiO2 40%, PEEP 8. #8 ET tube at 21 cm at the lip secured. ABG results this a.m.: PH 7.46/pCO2 41/pO2 94/HCO3 29/O2 sat 97.4/base excess 5.5. Mediastinal chest tubes and left pleural chest tube remained to low continuous wall suction -20 cm H2O. No air leak present. Chest tubes remain draining thin serosanguineous drainage. Mediastinal chest tubes with 20 mL output in the last 8 hours, 70 mL output the last 24 hours. Left pleural chest tube with 110 mL output in the last 8 hours, 170 mL output in the last 24 hours. - Cardiovascular Details: Regular rhythm and tachycardic rate. S1 and S2 present, negative for S3, gallop or murmur. Sternum is stable. Bedside telemetry showing atrial flutter heart rate 118. Heart hugger is in place. Knee-high DANITZA hose and sequential compression devices in place to her bilateral lower extremities. Atrial and ventricular epicardial pacemaker wires remain intact and connected to a pacemaker generator on backup mode. Generalized +2 edema. Current cardiac output 6.3, cardiac index 3.2, PA pressures 34/27, CVP 23. Primacor drip remains at 0.2 mcg/kg/m, and norepinephrine drip is at 3 mcg/m. - Gastrointestinal Gastrointestinal Comment(s): Abdomen is soft, nontender and nondistended. Hypoactive bowel sounds all 4 abdominal quadrants. Tube feeding vital high-protein infusing per OG tube at goal rate of 60 mL per hour with automatic water flushes. No bowel movement since surgery. - Genitourinary Genitourinary Comment(s): Mason catheter for accurate I&O. Clear yellow urine. Adequate urine output, 470 mL output in the last 8 hours. - Neurologic Neurologic: Present: CNII-XII intact - Musculoskeletal Musculoskeletal Comment(s): The patient is moving all 4 extremities appropriately with verbal stimuli. Musculoskeletal: Present: generalized weakness - Allied health notes Allied health notes reviewed: nursing - Labs CBC & Chem 7: 11/30/17 04:30 11/30/17 04:30 Labs: Abnormal Lab Results - Last 24 Hours (Table) 11/23/17 11/29/17 11/29/17 Range/Units 08:19 09:06 11:06 WBC (3.8-10.6) k/uL RBC (3.80-5.40) m/uL Hgb (11.4-16.0) gm/dL Hct (34.0-46.0) % MCHC (31.0-37.0) g/dL RDW (11.5-15.5) % Plt Count (150-450) k/uL ABG pH (7.35-7.45) ABG pO2 (83-108) mmHg ABG HCO3 (21-25) mmol/L ABG Total CO2 (19-24) mmol/L ABG O2 Saturation (94-97) % Carbon Dioxide (22-30) mmol/L BUN (7-17) mg/dL Creatinine (0.52-1.04) mg/dL Glucose (74-99) mg/dL POC Glucose (mg/dL) 117 H 111 H (75-99) mg/dL Calcium (8.4-10.2) mg/dL Magnesium (1.6-2.3) mg/dL AST (14-36) U/L Total Protein (6.3-8.2) g/dL Albumin (3.5-5.0) g/dL Crossmatch See Detail 11/29/17 11/29/17 11/29/17 Range/Units 16:25 18:13 19:29 WBC (3.8-10.6) k/uL RBC (3.80-5.40) m/uL Hgb (11.4-16.0) gm/dL Hct (34.0-46.0) % MCHC (31.0-37.0) g/dL RDW (11.5-15.5) % Plt Count (150-450) k/uL ABG pH (7.35-7.45) ABG pO2 74 L (83-108) mmHg ABG HCO3 28 H (21-25) mmol/L ABG Total CO2 29 H (19-24) mmol/L ABG O2 Saturation (94-97) % Carbon Dioxide (22-30) mmol/L BUN (7-17) mg/dL Creatinine (0.52-1.04) mg/dL Glucose (74-99) mg/dL POC Glucose (mg/dL) 116 H 123 H (75-99) mg/dL Calcium (8.4-10.2) mg/dL Magnesium (1.6-2.3) mg/dL AST (14-36) U/L Total Protein (6.3-8.2) g/dL Albumin (3.5-5.0) g/dL Crossmatch 11/30/17 11/30/17 11/30/17 Range/Units 00:03 04:30 04:30 WBC 11.0 H (3.8-10.6) k/uL RBC 2.53 L (3.80-5.40) m/uL Hgb 7.0 L* (11.4-16.0) gm/dL Hct 23.2 L (34.0-46.0) % MCHC 30.5 L (31.0-37.0) g/dL RDW 18.4 H (11.5-15.5) % Plt Count 74 L (150-450) k/uL ABG pH (7.35-7.45) ABG pO2 (83-108) mmHg ABG HCO3 (21-25) mmol/L ABG Total CO2 (19-24) mmol/L ABG O2 Saturation (94-97) % Carbon Dioxide 31 H (22-30) mmol/L BUN 49 H (7-17) mg/dL Creatinine 1.10 H (0.52-1.04) mg/dL Glucose 116 H (74-99) mg/dL POC Glucose (mg/dL) 122 H (75-99) mg/dL Calcium 7.8 L (8.4-10.2) mg/dL Magnesium 2.4 H (1.6-2.3) mg/dL AST 76 H (14-36) U/L Total Protein 4.9 L (6.3-8.2) g/dL Albumin 2.5 L (3.5-5.0) g/dL Crossmatch 11/30/17 11/30/17 Range/Units 05:04 05:54 WBC (3.8-10.6) k/uL RBC (3.80-5.40) m/uL Hgb (11.4-16.0) gm/dL Hct (34.0-46.0) % MCHC (31.0-37.0) g/dL RDW (11.5-15.5) % Plt Count (150-450) k/uL ABG pH 7.46 H (7.35-7.45) ABG pO2 (83-108) mmHg ABG HCO3 29 H (21-25) mmol/L ABG Total CO2 31 H (19-24) mmol/L ABG O2 Saturation 97.4 H (94-97) % Carbon Dioxide (22-30) mmol/L BUN (7-17) mg/dL Creatinine (0.52-1.04) mg/dL Glucose (74-99) mg/dL POC Glucose (mg/dL) 112 H (75-99) mg/dL Calcium (8.4-10.2) mg/dL Magnesium (1.6-2.3) mg/dL AST (14-36) U/L Total Protein (6.3-8.2) g/dL Albumin (3.5-5.0) g/dL Crossmatch - Imaging and Cardiology Chest x-ray: report reviewed, image reviewed Assessment and Plan (1) Acute blood loss as cause of postoperative anemia Current Visit: Yes Status: Acute Code(s): D62 - ACUTE POSTHEMORRHAGIC ANEMIA SNOMED Code(s): 91578014545349711 (2) CAD (coronary artery disease) Current Visit: Yes Status: Chronic Code(s): I25.10 - ATHSCL HEART DISEASE OF [place] CORONARY ARTERY W/O ANG PCTRS SNOMED Code(s): 29958019 (3) Family history of coronary artery disease Current Visit: Yes Status: Chronic Code(s): Z82.49 - FAMILY HX OF ISCHEM HEART DIS AND OTH DIS OF THE CIRC SYS SNOMED Code(s): 890422098 (4) Hyperlipidemia Current Visit: Yes Status: Chronic Code(s): E78.5 - HYPERLIPIDEMIA, UNSPECIFIED SNOMED Code(s): 44185970 (5) Hypertension Current Visit: Yes Status: Chronic Code(s): I10 - ESSENTIAL (PRIMARY) HYPERTENSION SNOMED Code(s): 61297433 (6) Severe mitral regurgitation Current Visit: Yes Status: Chronic Code(s): I34.0 - NONRHEUMATIC MITRAL ( VALVE) INSUFFICIENCY SNOMED Code(s): 72324313 (7) Stenosis of left subclavian artery Current Visit: Yes Status: Chronic Code(s): I77.1 - STRICTURE OF ARTERY SNOMED Code(s): 924452952 (8) PAD (peripheral artery disease) Current Visit: No Status: Acute Code(s): I73.9 - PERIPHERAL VASCULAR DISEASE , UNSPECIFIED SNOMED Code(s): 703854080 (9) History of GI bleed Current Visit: No Status: Resolved Code(s): Z87.19 - PERSONAL HISTORY OF OTHER DISEASES OF THE DIGESTIVE SYSTEM SNOMED Code(s): 629244560 (10) Paroxysmal atrial fibrillation Current Visit: No Status: Resolved Code(s): I48.0 - PAROXYSMAL ATRIAL FIBRILLATION SNOMED Code(s): 666465795 (11) Elevated aspartate aminotransferase level Current Visit: Yes Status: Acute Code(s): R74.0 - NONSPEC ELEV OF LEVELS OF TRANSAMNS & LACTIC ACID DEHYDRGNSE SNOMED Code(s): 820490567 Plan: 1. Continue norepinephrine drip wean as tolerated, and Primacor drip at 0.2 mcg /kg/m. 2. Continue amiodarone 200 mg per OG tube twice a day for history of paroxysmal atrial fibrillation on home amiodarone. 3. Mechanical ventilation management per pulmonology, Dr. Garcia's recommendations. 4. GI/DVT prophylaxis. 5. We will continue metoprolol 12.5 mg per OG tube twice a day today. 6. Discontinue her mediastinal chest tubes today, keep her left pleural chest tube to low continuous wall suction -20 cm H2O. 7. Will monitor daily labs, and chest x-rays. 8. Continue mupirocin for preoperative MRSA positive nasal swab. 9. Avoid nephrotoxic medications. 10. Patient is currently critical but relatively stable, will continue to monitor very closely. 11. Continue Lipitor despite elevated AST. AST trending down. 12. Continue low dose aspirin. Continue to hold heparin, HIT panel results pending. 13. Postoperative limited 2-D echocardiogram on 11/26/2017 shows an ejection fraction of 45-50%. 14. Continue tube feedings vital high-protein. Per dietitian recommendations. 15. Lasix 40 mg IV 1 now. 16. Discontinue [place]-Cesario catheter. Keep Cordis in place and placed to continuous CVP monitoring. 17. We will start Arixtra 2.5 mg subcu daily. 18. We have consulted interventional radiology for PICC line placement. 19. More recommendations as patient progresses in her care. Mediastinal chest tubes removed without incident. Suture secured in place. 4 x 4 dressing placed and secured with tape. Time with Patient: Greater than 30
[2017-11-30] MEDS: SODIUM CHLORIDE 0.45% 1,000 ML IV SCH (12:51)
[2017-11-30] MEDS ORDERED: LIDOCAINE 1% INJ 10MG/ML (20 ML MDV) SQ ONE (12:57)
--- NOTE | 2017-11-30 13:22 | XR ---
EXAMINATION TYPE: XR chest 1V portable DATE OF EXAM: 11/30/2017 COMPARISON: 11/30/2017 HISTORY: PICC line placement TECHNIQUE: Single frontal view of the chest is obtained. FINDINGS: PICC line is seen with the tip overlying the SVC. Cardiomegaly, postsurgical change, vascular stent, chest tube noted. Right-sided [place]-Cesario catheter h as been removed. Right-sided vascular sheath noted. Bilateral infiltrate and pleural effusion. Diffuse interstitial pattern. No pneumothorax. IMPRESSION: 1. Diffuse interstitial pattern with bilateral infiltrate and pleural effusion stable. Correlate for pneumonia. Superimposed pneumonitis or vascular congestion suggested. 2. PICC line appears in good position.
[2017-11-30] MEDS: FONDAPARINUX 2.5 MG/0.5 ML SYRINGE SQ SCH (13:23)
--- NOTE | 2017-11-30 14:43 | CDI ---
Last Revision, September 2017 Documentation Clarification Form Date: 11/30/2017 2:35:00 PM From: Chuyita ArnettNavarrete [facility], CCDS Admit Date: 11/25/2017 5:36:00 AM Patient Name: Maritza Sadler Visit Number: [id number] Discharge Date: ATTENTION: The Clinical Documentation Specialists (CDI) and [facility] Coding Staff appreciate your assistance in clarifying documentation. Please respond to the clarification below the line at the bottom and electronically sign. The CDI & [facility] Coding staff will review the response and follow-up if needed. Please note: Queries are made part of the Legal Health Record. If you have any questions, please contact the author of this message via ITS. Dr. Jaquan Salcedo: Atrial Flutter is documented in the 11/27 cardiology progress note: atrial flutter w/2:1 block. The 11/30 cardiology progress note as "Mrs. Sadler is in atrial flutter with 3:1 block, hemodynamically stable, making fair amount of urine clinically about the same." History/Risk factors: CAD, Chronic atrial fibrillation. Clinical Indicators: Patient is status post mitral valve replacement & coronary artery bypass x1. EKG/telemetry: R 107 w/sinus tachycardia w/PVCs. #2: R 112 sinus tachycardia. # 3: R 120 unusual P azis possible ectopic atrial tachycardia. Treatment: Additional dose of Lasix. In ICU sp heart surgery. Weaned from vent this morning. po Amiodarone. In your professional opinion, in order to capture the severity of condition; can you please clarify the type of atrial flutter if known? Typical/Type I Atypical/Type II Other, please specify Unable to determine Please continue to document in your progress notes and discharge summary in order to capture severity of illness and risk of mortality. Include clinical findings that support your diagnosis. MTDD
--- NOTE | 2017-11-30 14:54 | CDI ---
Last Revision, September 2017 Documentation Clarification Form Date: 11/30/2017 2:43:00 PM From: Chuyita ArnettNavarreteEDUARDO, CCDS Admit Date: 11/25/2017 5:36:00 AM Patient Name: Maritza Sadler Visit Number: [id number] Discharge Date: ATTENTION: The Clinical Documentation Specialists (CDI) and [facility] Coding Staff appreciate your assistance in clarifying documentation. Please respond to the clarification below the line at the bottom and electronically sign. The CDI & [facility] Coding staff will review the response and follow-up if needed. Please note: Queries are made part of the Legal Health Record. If you have any questions, please contact the author of this message via ITS. Dr. John Garcia: Postoperative respiratory failure with failure to wean is documented in your & 11/30 pulmonary/critical care progress notes. 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 Post-Operative Diagnosis: Same Procedure performed: MVR, CABG x1, Modified MARIANGEL px, Ligation of left atrial appendage, Endoscopic harvest of right greater saphenous vein, intraoperative suture of ventricle. History/Risk Factors: CAD, rheumatic mitral valve stenosis, Atrial fibrillation , Hypertension, hypercholesterolemia, Gallbladder disease. Clinical Indicators: Patient's heart surgery was performed on 11/25, patient was weaned from vent on 11/30. Treatment: Multiple transfusions intraoperatively, IV Heparin, IV Mag Sulfate, IV Mag, Albuterol INH, IV NaBicarb, IV Vasopressin, IV Amiodarone, IV Lasix, IV Solumedrol. Currently on 40% BiPAP. In order to accurately reflect this patients severity of illness, please clarify if the post-operative diagnosis is: An expected post-procedural or post-surgical condition; Integral to the procedure; Inherent to the procedure; An unexpected post-procedural or post-surgical condition related to surgical care; Other, please specify: Unable to determine Please continue to document in your progress notes and discharge summary in order to capture severity of illness and risk of mortality. Include clinical findings that support your diagnosis. MTDD
--- NOTE | 2017-11-30 17:28 | P.PN ---
Subjective Progress Note Date: 11/29/17 Progress note being dictated for Dr. Lugo. Interval history: This is 67-year-old female status post CABG, mitral valve replacement, status post multiple blood products transfusions. Remains vent dependent on 40% FiO2/+5 of PEEP. Chest x-ray reporting fluid overload, improvement in volume status, aeration.Maintained on norepinephrine, Primacor, dopamine and insulin drip. Cardiac index 2.7. Telemetry atrial flutter/sinus tach. Tube feeding initiated via OG tube. Hemoglobin 7.3, Platelets decreased to 64 today, maintained on low-dose aspirin. Review systems unable to obtain as patient sedated and on mechanical ventilation. Active Medications Albuterol/Ipratropium (Duoneb 0.5 Mg-3 Mg/3 Ml Soln) 3 ml INHALATION RT-Q4H [facility] Last Admin: 11/29/17 15:17 Dose: 3 ml Albuterol/Ipratropium (Duoneb 0.5 Mg-3 Mg/3 Ml Soln) 3 ml INHALATION RT-Q2H PRN PRN Reason: Shortness Of Breath Or Wheezing Amiodarone HCl (Cordarone) 200 mg PO BID [facility] Aspirin (Aspirin) 81 mg PO DAILY [facility] Last Admin: 11/29/17 08:54 Dose: 81 mg Atorvastatin Calcium (Lipitor) 40 mg PO DAILY [facility] Last Admin: 11/29/17 08:54 Dose: 40 mg Benzocaine/Menthol (Cepacol Lozenge) 1 each MUCOUS MEM Q2H PRN PRN Reason: Sore Throat Bisacodyl (Dulcolax) 10 mg RECTAL DAILY PRN PRN Reason: Constipation Chlorhexidine Gluconate (Peridex) 15 ml MUCOUS MEM BID [facility] Last Admin: 11/29/17 08:48 Dose: 15 ml Furosemide (Lasix) 40 mg IV ONCE ONE Stop: 11/29/17 20:01 Propofol 1,000 mg/ IV Solution 100 mls @ 0 mls/hr IV .Q0M [facility]; Titrate PRN Reason: Protocol Last Admin: 11/29/17 17:54 Dose: 26.13 mcg/kg/min, 17.2 mls/hr Norepinephrine Bitartrate (Levophed-0.9% Nacl 16 Mg/250ml Pmx) 16 mg in 250 mls @ 0 mls/hr IV .Q0M [facility]; Titrate PRN Reason: Protocol Last Admin: 11/29/17 17:54 Dose: 2 mcg/min, 1.875 mls/hr Sodium Chloride (Saline 0.45%) 1,000 mls @ 30 mls/hr IV .Q24H [facility] Last Admin: 11/29/17 10:28 Dose: Not Given Milrinone Lactate/Dextrose 20 (mg/ IV Solution) 100 mls @ 6.58 mls/hr IV .[id number] [facility] PRN Reason: 0.2 MCG/KG/MIN Last Admin: 11/29/17 15:38 Dose: 0.2 mcg/kg/min, 6.58 mls/hr Insulin Aspart (Novolog) 0 unit SQ Q6HR [facility] PRN Reason: Protocol Last Admin: 11/29/17 12:36 Dose: Not Given Magnesium Hydroxide (Milk Of Magnesia) 2,400 mg PO BID PRN PRN Reason: Constipation Metoprolol Tartrate (Lopressor) 12.5 mg PO BID [facility] Last Admin: 11/29/17 08:55 Dose: 12.5 mg Miscellaneous Information (Magnesium Per Protocol) 1 each MISCELLANE DAILY PRN ; Protocol PRN Reason: Per Protocol Miscellaneous Information (Phosphorus Per Protocol) 1 each MISCELLANE DAILY PRN ; Protocol PRN Reason: Per Protocol Miscellaneous Information (Potassium Per Protocol) 1 each MISCELLANE DAILY PRN ; Protocol PRN Reason: Per Protocol Miscellaneous Information (Potassium Per Protocol) 1 each MISCELLANE DAILY PRN ; Protocol PRN Reason: Per Protocol Morphine Sulfate (Morphine Oral Dana 2mg/Ml) 6 mg PO Q2H PRN PRN Reason: Severe Pain Ondansetron HCl (Zofran) 4 mg IVP Q6HR PRN PRN Reason: Nausea And Vomiting Pantoprazole Sodium (Protonix) 40 mg IVP DAILY [facility] Last Admin: 11/29/17 08:55 Dose: 40 mg Senna/Docusate Sodium (Senokot-S) 2 each PO HS [facility] Last Admin: 11/28/17 20:41 Dose: 2 each Sodium Chloride (Saline Flush) 10 ml IV BID [facility] Last Admin: 11/29/17 08:56 Dose: 10 ml Objective - Vital Signs Vital signs: Vital Signs Temp 99.0 F 11/29/17 17:00 Pulse 113 H 11/29/17 18:00 Resp 26 H 11/29/17 18:00 BP 81/40 11/29/17 15:00 Pulse Ox 99 11/29/17 18:00 Intake & Output 11/29/17 11/29/17 11/30/17 06:59 18:59 06:59 Intake Total 1722.781 948.976 Output Total 885 1405 Balance 837.781 -456.024 Intake: IV 597 498 CO/CI 90 30 Pressure Bag 117 108 Sodium Chloride 0.45% 1, 390 360 000 ml @ 30 mls/hr IV . Q24H [facility] Rx#:[id number] Intake, IV Titration 470.781 220.976 Amount Amiodarone 450 mg In 214.914 Dextrose 5% in Water 250 ml @ 0.5 MG/MIN 16.66 mls /hr IV .Q15H1M [facility] Rx#: [id number] Insulin Regular 100 unit 6.851 In Sodium Chloride 0.9% 100 ml @ Per Protocol IV .Q0M [facility] Rx#:[id number] Milrinone-D5w Pmx 20 mg 100 50.494 In Dextrose/Water 1 100ml .bag @ Per Protocol IV . Q0M [facility] Rx#:[id number] Norepinephrin 16 mg-0.9% 55.147 Ns Pmx 16 mg In 250 ml @ Titrate IV .Q0M [facility] Rx#: [id number] Propofol 1,000 mg In 149.016 115.335 Empty Bag 1 bag @ Titrate IV .Q0M [facility] Rx#: [id number] Tube Feeding 430 230 Other 225 Output: Chest Tube Drainage 190 130 BL Mediastinal 90 80 Left Pleural 100 50 Urine 695 1275 Other: Voiding Method Indwelling Catheter Indwelling Catheter ABP, PAP, CO, CI - Last Documented Arterial Blood Pressure 119/60 Pulmonary Artery Pressure 45/32 Cardiac Output 5.3 Cardiac Index 2.7 - Exam PHYSICAL EXAM: VITAL SIGNS: As above GENERAL: Lying in bed, sedated and on mechanical ventilation HEENT: Conjunctivae normal. eyes normal. NECK: No JVD. No thyroid enlargement. No LNs CARDIOVASCULAR: S1, S2 muffled. No murmur RESPIRATION: Breath sounds diminished in the bases. Scattered rhonchi throughout. Mediastinal and left pleural chest tubes present. ABDOMEN: Soft, nontender . No guarding. no masses palpable.Bowel sounds heard. LEGS: Positive edema PSYCHIATRY:/NERVOUS SYSTEM: Unable to assess as patient sedated and on mechanical ventilation Skin: no ulcer no rash - Labs CBC & Chem 7: 11/30/17 04:30 11/30/17 04:30 Labs: Abnormal Lab Results - Last 24 Hours (Table) 11/26/17 11/28/17 11/28/17 Range/Units 00:16 21:07 23:28 WBC (3.8-10.6) k/uL RBC (3.80-5.40) m/uL Hgb (11.4-16.0) gm/dL Hct (34.0-46.0) % MCHC (31.0-37.0) g/dL RDW (11.5-15.5) % Plt Count (150-450) k/uL ABG pH (7.35-7.45) ABG pO2 (83-108) mmHg ABG HCO3 (21-25) mmol/L ABG Total CO2 (19-24) mmol/L ABG O2 Saturation (94-97) % BUN (7-17) mg/dL Creatinine (0.52-1.04) mg/dL Glucose (74-99) mg/dL POC Glucose (mg/dL) 147 H 120 H 119 H (75-99) mg/dL Calcium (8.4-10.2) mg/dL Magnesium (1.6-2.3) mg/dL AST (14-36) U/L Total Protein (6.3-8.2) g/dL Albumin (3.5-5.0) g/dL 11/29/17 11/29/17 11/29/17 Range/Units 01:03 03:18 04:50 WBC 12.0 H (3.8-10.6) k/uL RBC 2.64 L (3.80-5.40) m/uL Hgb 7.3 L (11.4-16.0) gm/dL Hct 23.7 L (34.0-46.0) % MCHC 30.6 L (31.0-37.0) g/dL RDW 18.4 H (11.5-15.5) % Plt Count 64 L (150-450) k/uL ABG pH (7.35-7.45) ABG pO2 (83-108) mmHg ABG HCO3 (21-25) mmol/L ABG Total CO2 (19-24) mmol/L ABG O2 Saturation (94-97) % BUN (7-17) mg/dL Creatinine (0.52-1.04) mg/dL Glucose (74-99) mg/dL POC Glucose (mg/dL) 119 H 115 H (75-99) mg/dL Calcium (8.4-10.2) mg/dL Magnesium (1.6-2.3) mg/dL AST (14-36) U/L Total Protein (6.3-8.2) g/dL Albumin (3.5-5.0) g/dL 11/29/17 11/29/17 11/29/17 Range/Units 04:50 04:53 06:48 WBC (3.8-10.6) k/uL RBC (3.80-5.40) m/uL Hgb (11.4-16.0) gm/dL Hct (34.0-46.0) % MCHC (31.0-37.0) g/dL RDW (11.5-15.5) % Plt Count (150-450) k/uL ABG pH (7.35-7.45) ABG pO2 (83-108) mmHg ABG HCO3 (21-25) mmol/L ABG Total CO2 (19-24) mmol/L ABG O2 Saturation (94-97) % BUN 49 H (7-17) mg/dL Creatinine 1.31 H (0.52-1.04) mg/dL Glucose 112 H (74-99) mg/dL POC Glucose (mg/dL) 118 H 117 H (75-99) mg/dL Calcium 7.9 L (8.4-10.2) mg/dL Magnesium 2.6 H (1.6-2.3) mg/dL AST 109 H (14-36) U/L Total Protein 5.0 L (6.3-8.2) g/dL Albumin 2.6 L (3.5-5.0) g/dL 11/29/17 11/29/17 11/29/17 Range/Units 08:11 09:06 11:06 WBC (3.8-10.6) k/uL RBC (3.80-5.40) m/uL Hgb (11.4-16.0) gm/dL Hct (34.0-46.0) % MCHC (31.0-37.0) g/dL RDW (11.5-15.5) % Plt Count (150-450) k/uL ABG pH 7.47 H (7.35-7.45) ABG pO2 135 H (83-108) mmHg ABG HCO3 26 H (21-25) mmol/L ABG Total CO2 27 H (19-24) mmol/L ABG O2 Saturation 99.5 H (94-97) % BUN (7-17) mg/dL Creatinine (0.52-1.04) mg/dL Glucose (74-99) mg/dL POC Glucose (mg/dL) 117 H 111 H (75-99) mg/dL Calcium (8.4-10.2) mg/dL Magnesium (1.6-2.3) mg/dL AST (14-36) U/L Total Protein (6.3-8.2) g/dL Albumin (3.5-5.0) g/dL 11/29/17 11/29/17 Range/Units 16:25 18:13 WBC (3.8-10.6) k/uL RBC (3.80-5.40) m/uL Hgb (11.4-16.0) gm/dL Hct (34.0-46.0) % MCHC (31.0-37.0) g/dL RDW (11.5-15.5) % Plt Count (150-450) k/uL ABG pH (7.35-7.45) ABG pO2 74 L (83-108) mmHg ABG HCO3 28 H (21-25) mmol/L ABG Total CO2 29 H (19-24) mmol/L ABG O2 Saturation (94-97) % BUN (7-17) mg/dL Creatinine (0.52-1.04) mg/dL Glucose (74-99) mg/dL POC Glucose (mg/dL) 116 H (75-99) mg/dL Calcium (8.4-10.2) mg/dL Magnesium (1.6-2.3) mg/dL AST (14-36) U/L Total Protein (6.3-8.2) g/dL Albumin (3.5-5.0) g/dL Assessment and Plan Assessment: 1. Status post CABG with mitral valve replacement 2. Acute blood loss anemia with massive blood transfusions postoperatively, in a patient with history of GI bleed 3. Hypertension 4. Left subclavian stenosis 5. Proximal atrial fibrillation 6. Postoperative Hypoxic respiratory failure, remains vent dependent 7. Obesity, BMI 41.6 Plan: Continue on current medication regime ,monitoring and symptomatic treatment. Insulin drip discontinued and converted over to sliding scale with Accu-Cheks every 6 hours, close monitoring of Accu-Cheks. Weaning of pressors in progress. Further recommendations to follow. The impression and plan of care has been dictated as directed. : I performed a history and examination of this patient, discussed the same with the dictator. I agree with the dictator's note ,documented as a scribe. Any additional findings or plans will be noted.
--- NOTE | 2017-11-30 17:47 | P.PN ---
Subjective Progress Note Date: 11/30/17 Progress note being dictated for Dr. Lugo. Interval history: This is 67-year-old female status post CABG, mitral valve replacement, status post multiple blood products transfusions. Remains vent dependent on 40% FiO2/+5 of PEEP. Chest x-ray reporting fluid overload, improvement in volume status, aeration.Maintained on norepinephrine, Primacor, dopamine and insulin drip. Cardiac index 2.7. Telemetry atrial flutter/sinus tach. Tube feeding initiated via OG tube. Hemoglobin 7.3, Platelets decreased to 64 today, maintained on low-dose aspirin. Review systems unable to obtain as patient sedated and on mechanical ventilation. Active Medications Albuterol/Ipratropium (Duoneb 0.5 Mg-3 Mg/3 Ml Soln) 3 ml INHALATION RT-Q4H [facility] Last Admin: 11/29/17 15:17 Dose: 3 ml Albuterol/Ipratropium (Duoneb 0.5 Mg-3 Mg/3 Ml Soln) 3 ml INHALATION RT-Q2H PRN PRN Reason: Shortness Of Breath Or Wheezing Amiodarone HCl (Cordarone) 200 mg PO BID [facility] Aspirin (Aspirin) 81 mg PO DAILY [facility] Last Admin: 11/29/17 08:54 Dose: 81 mg Atorvastatin Calcium (Lipitor) 40 mg PO DAILY [facility] Last Admin: 11/29/17 08:54 Dose: 40 mg Benzocaine/Menthol (Cepacol Lozenge) 1 each MUCOUS MEM Q2H PRN PRN Reason: Sore Throat Bisacodyl (Dulcolax) 10 mg RECTAL DAILY PRN PRN Reason: Constipation Chlorhexidine Gluconate (Peridex) 15 ml MUCOUS MEM BID [facility] Last Admin: 11/29/17 08:48 Dose: 15 ml Furosemide (Lasix) 40 mg IV ONCE ONE Stop: 11/29/17 20:01 Propofol 1,000 mg/ IV Solution 100 mls @ 0 mls/hr IV .Q0M [facility]; Titrate PRN Reason: Protocol Last Admin: 11/29/17 17:54 Dose: 26.13 mcg/kg/min, 17.2 mls/hr Norepinephrine Bitartrate (Levophed-0.9% Nacl 16 Mg/250ml Pmx) 16 mg in 250 mls @ 0 mls/hr IV .Q0M [facility]; Titrate PRN Reason: Protocol Last Admin: 11/29/17 17:54 Dose: 2 mcg/min, 1.875 mls/hr Sodium Chloride (Saline 0.45%) 1,000 mls @ 30 mls/hr IV .Q24H [facility] Last Admin: 11/29/17 10:28 Dose: Not Given Milrinone Lactate/Dextrose 20 (mg/ IV Solution) 100 mls @ 6.58 mls/hr IV .[id number] [facility] PRN Reason: 0.2 MCG/KG/MIN Last Admin: 11/29/17 15:38 Dose: 0.2 mcg/kg/min, 6.58 mls/hr Insulin Aspart (Novolog) 0 unit SQ Q6HR [facility] PRN Reason: Protocol Last Admin: 11/29/17 12:36 Dose: Not Given Magnesium Hydroxide (Milk Of Magnesia) 2,400 mg PO BID PRN PRN Reason: Constipation Metoprolol Tartrate (Lopressor) 12.5 mg PO BID [facility] Last Admin: 11/29/17 08:55 Dose: 12.5 mg Miscellaneous Information (Magnesium Per Protocol) 1 each MISCELLANE DAILY PRN ; Protocol PRN Reason: Per Protocol Miscellaneous Information (Phosphorus Per Protocol) 1 each MISCELLANE DAILY PRN ; Protocol PRN Reason: Per Protocol Miscellaneous Information (Potassium Per Protocol) 1 each MISCELLANE DAILY PRN ; Protocol PRN Reason: Per Protocol Miscellaneous Information (Potassium Per Protocol) 1 each MISCELLANE DAILY PRN ; Protocol PRN Reason: Per Protocol Morphine Sulfate (Morphine Oral Dana 2mg/Ml) 6 mg PO Q2H PRN PRN Reason: Severe Pain Ondansetron HCl (Zofran) 4 mg IVP Q6HR PRN PRN Reason: Nausea And Vomiting Pantoprazole Sodium (Protonix) 40 mg IVP DAILY [facility] Last Admin: 11/29/17 08:55 Dose: 40 mg Senna/Docusate Sodium (Senokot-S) 2 each PO HS [facility] Last Admin: 11/28/17 20:41 Dose: 2 each Sodium Chloride (Saline Flush) 10 ml IV BID [facility] Last Admin: 11/29/17 08:56 Dose: 10 ml 11/30/2017 Chest x-ray reporting increased congestion, received additional Lasix. extubated this morning, currently maintained on BiPAP. Norepinephrine weaned off this morning. Maintained on Primacor, cardiac index 2.6. Received 1 dose of Lasix IV push. Renal function improving. Hemoglobin 7, platelets increased to 74. Atrial flutter per telemetry. Review systems unable to obtain as patient BiPAP dependent. Active Medications Generic Name Dose Route Start Last Admin Trade Name Freq PRN Reason Stop Dose Admin Albuterol/Ipratropium 3 ml 11/25/17 20:00 11/30/17 15:23 Duoneb 0.5 Mg-3 Mg/3 Ml Soln INHALATION 3 ml RT-Q4H [facility] Administration Albuterol/Ipratropium 3 ml 11/26/17 17:53 Duoneb 0.5 Mg-3 Mg/3 Ml Soln INHALATION RT-Q2H PRN Shortness Of Breath Or Wheezing Amiodarone HCl 200 mg 11/29/17 21:00 11/30/17 08:14 Cordarone PO 200 mg BID [facility] Administration Aspirin 81 mg 11/26/17 10:15 11/30/17 08:15 Aspirin PO 81 mg DAILY [facility] Administration Atorvastatin Calcium 40 mg 11/26/17 09:00 11/30/17 08:14 Lipitor PO 40 mg DAILY [facility] Administration Benzocaine/Menthol 1 each 11/25/17 19:03 Cepacol Lozenge MUCOUS MEM Q2H PRN Sore Throat Bisacodyl 10 mg 11/26/17 17:52 Dulcolax RECTAL DAILY PRN Constipation Fondaparinux 2.5 mg 11/30/17 11:30 11/30/17 13:23 Arixtra SQ 2.5 mg DAILY [facility] Administration Norepinephrine Bitartrate 16 mg in 250 mls @ 0 mls/hr 11/26/17 04:15 11:58 Levophed-0.9% Nacl 16 Mg/250ml Pmx IV 0 mcg/min .Q0M [facility] 0 mls/hr Protocol Titration Titrate Sodium Chloride 1,000 mls @ 10 mls/hr 11/26/17 10:15 11/30/17 12:51 Saline 0.45% IV Not Given .Q24H [facility] Milrinone Lactate/Dextrose 20 100 mls @ 6.58 mls/hr 11/29/17 15:00 11/30/17 08:16 mg/ IV Solution IV 0.2 mcg/kg/min .[id number] [facility] 6.58 mls/hr 0.2 MCG/KG/MIN Infusion Insulin Aspart 0 unit 11/29/17 12:00 11/30/17 12:50 Novolog SQ Not Given Q6HR [facility] Protocol Magnesium Hydroxide 2,400 mg 11/26/17 17:53 Milk Of Magnesia PO BID PRN Constipation Metoprolol Tartrate 12.5 mg 11/26/17 09:00 11/30/17 08:15 Lopressor PO 12.5 mg BID [facility] Administration Miscellaneous Information 1 each 11/25/17 19:03 Magnesium Per Protocol MISCELLANE DAILY PRN Per Protocol Protocol Miscellaneous Information 1 each 11/25/17 19:03 Phosphorus Per Protocol MISCELLANE DAILY PRN Per Protocol Protocol Miscellaneous Information 1 each 11/25/17 19:03 Potassium Per Protocol MISCELLANE DAILY PRN Per Protocol Protocol Miscellaneous Information 1 each 11/29/17 12:01 Potassium Per Protocol MISCELLANE DAILY PRN Per Protocol Protocol Morphine Sulfate 6 mg 11/29/17 13:31 Morphine Oral Dana 2mg/Ml PO Q2H PRN Severe Pain Ondansetron HCl 4 mg 11/25/17 19:03 Zofran IVP Q6HR PRN Nausea And Vomiting Pantoprazole Sodium 40 mg 11/26/17 09:00 11/30/17 08:15 Protonix IVP 40 mg DAILY [facility] Administration Senna/Docusate Sodium 2 each 11/26/17 21:00 11/29/17 20:40 Senokot-S PO 2 each HS [facility] Administration Sodium Chloride 10 ml 11/25/17 21:00 11/30/17 08:15 Saline Flush IV 10 ml BID [facility] Administration Objective - Vital Signs Vital signs: Vital Signs Temp 98.9 F 11/30/17 16:00 Pulse 116 H 11/30/17 16:00 Resp 23 11/30/17 16:00 BP 98/48 11/30/17 16:00 Pulse Ox 100 11/30/17 16:00 Intake & Output 11/29/17 11/30/17 11/30/17 18:59 06:59 18:59 Intake Total 500.162 7276 978.623 Output Total 1405 1540 1315 Balance -456.024 373 -336.377 Weight 109.9 kg 109.9 kg Intake: IV 498 558 206 CO/CI 30 90 20 Pressure Bag 108 108 66 Sodium Chloride 0.45% 1, 360 360 120 000 ml @ 10 mls/hr IV . Q24H [facility] Rx#:[id number] Intake, IV Titration 220.976 200 87.623 Amount Milrinone-D5w Pmx 20 mg 100 8.993 In Dextrose/Water 1 100ml .bag @ 0.2 MCG/KG/MIN 6. 58 mls/hr IV .[id number] [facility] Rx#:[id number] Milrinone-D5w Pmx 20 mg 50.494 In Dextrose/Water 1 100ml .bag @ Per Protocol IV . Q0M [facility] Rx#:[id number] Norepinephrin 16 mg-0.9% 55.147 36.110 Ns Pmx 16 mg In 250 ml @ Titrate IV .Q0M [facility] Rx#: [id number] Propofol 1,000 mg In 115.335 100 42.520 Empty Bag 1 bag @ Titrate IV .Q0M [facility] Rx#: [id number] Tube Feeding 230 930 300 Blood Product 310 Rc As-1 Unit 310 [id number] Other 225 75 Output: Chest Tube Drainage 130 140 90 BL Mediastinal 80 20 20 Left Pleural 50 120 70 Urine 1275 1400 1225 Other: Voiding Method Indwelling Catheter Indwelling Catheter Indwelling Catheter ABP, PAP, CO, CI - Last Documented Arterial Blood Pressure 110/60 Pulmonary Artery Pressure 38/33 Cardiac Output 5.8 Cardiac Index 2.9 - Exam PHYSICAL EXAM: VITAL SIGNS: As above GENERAL: Sitting up in bed, wearing BiPAP HEENT: Conjunctivae normal. eyes normal. NECK: No JVD. No thyroid enlargement. No LNs CARDIOVASCULAR: S1, S2 muffled. No murmur RESPIRATION: Breath sounds diminished in the bases. Scattered rhonchi , wheezes throughout. Fine bibasilar crackles. chest tubes present. ABDOMEN: Soft, nontender . No guarding. no masses palpable.Bowel sounds heard. LEGS: Positive edema PSYCHIATRY:/NERVOUS SYSTEM: Alert and oriented 3, moves all 4 extremities no focal deficits, Skin: no ulcer no rash - Labs CBC & Chem 7: 11/30/17 04:30 11/30/17 04:30 Labs: Abnormal Lab Results - Last 24 Hours (Table) 11/23/17 11/29/17 11/29/17 Range/Units 08:19 18:13 19:29 WBC (3.8-10.6) k/uL RBC (3.80-5.40) m/uL Hgb (11.4-16.0) gm/dL Hct (34.0-46.0) % MCHC (31.0-37.0) g/dL RDW (11.5-15.5) % Plt Count (150-450) k/uL ABG pH (7.35-7.45) ABG HCO3 (21-25) mmol/L ABG Total CO2 (19-24) mmol/L ABG O2 Saturation (94-97) % Carbon Dioxide (22-30) mmol/L BUN (7-17) mg/dL Creatinine (0.52-1.04) mg/dL Glucose (74-99) mg/dL POC Glucose (mg/dL) 116 H 123 H (75-99) mg/dL Calcium (8.4-10.2) mg/dL Magnesium (1.6-2.3) mg/dL AST (14-36) U/L Total Protein (6.3-8.2) g/dL Albumin (3.5-5.0) g/dL Crossmatch See Detail 11/30/17 11/30/17 11/30/17 Range/Units 00:03 04:30 04:30 WBC 11.0 H (3.8-10.6) k/uL RBC 2.53 L (3.80-5.40) m/uL Hgb 7.0 L* (11.4-16.0) gm/dL Hct 23.2 L (34.0-46.0) % MCHC 30.5 L (31.0-37.0) g/dL RDW 18.4 H (11.5-15.5) % Plt Count 74 L (150-450) k/uL ABG pH (7.35-7.45) ABG HCO3 (21-25) mmol/L ABG Total CO2 (19-24) mmol/L ABG O2 Saturation (94-97) % Carbon Dioxide 31 H (22-30) mmol/L BUN 49 H (7-17) mg/dL Creatinine 1.10 H (0.52-1.04) mg/dL Glucose 116 H (74-99) mg/dL POC Glucose (mg/dL) 122 H (75-99) mg/dL Calcium 7.8 L (8.4-10.2) mg/dL Magnesium 2.4 H (1.6-2.3) mg/dL AST 76 H (14-36) U/L Total Protein 4.9 L (6.3-8.2) g/dL Albumin 2.5 L (3.5-5.0) g/dL Crossmatch 11/30/17 11/30/17 11/30/17 Range/Units 05:04 05:54 10:19 WBC (3.8-10.6) k/uL RBC (3.80-5.40) m/uL Hgb (11.4-16.0) gm/dL Hct (34.0-46.0) % MCHC (31.0-37.0) g/dL RDW (11.5-15.5) % Plt Count (150-450) k/uL ABG pH 7.46 H 7.47 H (7.35-7.45) ABG HCO3 29 H 29 H (21-25) mmol/L ABG Total CO2 31 H 30 H (19-24) mmol/L ABG O2 Saturation 97.4 H 99.4 H (94-97) % Carbon Dioxide (22-30) mmol/L BUN (7-17) mg/dL Creatinine (0.52-1.04) mg/dL Glucose (74-99) mg/dL POC Glucose (mg/dL) 112 H (75-99) mg/dL Calcium (8.4-10.2) mg/dL Magnesium (1.6-2.3) mg/dL AST (14-36) U/L Total Protein (6.3-8.2) g/dL Albumin (3.5-5.0) g/dL Crossmatch 11/30/17 Range/Units 12:15 WBC (3.8-10.6) k/uL RBC (3.80-5.40) m/uL Hgb (11.4-16.0) gm/dL Hct (34.0-46.0) % MCHC (31.0-37.0) g/dL RDW (11.5-15.5) % Plt Count (150-450) k/uL ABG pH (7.35-7.45) ABG HCO3 (21-25) mmol/L ABG Total CO2 (19-24) mmol/L ABG O2 Saturation (94-97) % Carbon Dioxide (22-30) mmol/L BUN (7-17) mg/dL Creatinine (0.52-1.04) mg/dL Glucose (74-99) mg/dL POC Glucose (mg/dL) 106 H (75-99) mg/dL Calcium (8.4-10.2) mg/dL Magnesium (1.6-2.3) mg/dL AST (14-36) U/L Total Protein (6.3-8.2) g/dL Albumin (3.5-5.0) g/dL Crossmatch Assessment and Plan Assessment: 1. Status post CABG with mitral valve replacement 2. Acute blood loss anemia with massive blood transfusions postoperatively, in a patient with history of GI bleed 3. Hypertension 4. Left subclavian stenosis 5. Proximal atrial fibrillation 6. Postoperative Hypoxic respiratory failure, remains vent dependent 7. Obesity, BMI 41.6 Plan: Continue on current medication regime ,monitoring and symptomatic treatment. Blood sugars controlled, maintain close monitoring of Accu-Cheks. Aggressive pulmonary toileting. PICC line placement ordered. Close monitoring of hemoglobin and platelets. Further recommendations to follow. The impression and plan of care has been dictated as directed. : I performed a history and examination of this patient, discussed the same with the dictator. I agree with the dictator's note ,documented as a scribe. Any additional findings or plans will be noted.
[2017-11-30] MEDS: SENNOSIDES-DOCUSATE SODIUM 1 EACH TAB PO SCH (20:23)
[2017-12-01] MEDS: INSULIN ASPART 100 UNIT/ML 1 ML 10 ML VIAL SQ SCH ×3 (00:26→17:05)
[2017-12-01 00:27] LABS: Glucose,Whole Blood 126 mg/dL (75-99)
[2017-12-01] MEDS: IPRATROPIUM-ALBUTEROL 3 ML NEB INHALATION SCH ×6 (03:32→23:43)
[2017-12-01 04:27] LABS: Ionized Calcium 4.7 mg/dL (4.5-5.3)
[2017-12-01 04:39] LABS: Anisocytosis Slight; HCT 22.7 % (34.0-46.0); Hypochromasia Marked; MCH 26.4 pg (25.0-35.0); MCHC 29.6 g/dL (31.0-37.0); MCV 89.2 fL (80.0-100.0); Mean Platelet Volume 9.6; Platelet Count 103 k/uL (150-450); Poikilocytosis Moderate; RBC 2.55 m/uL (3.80-5.40); RDW 18.2 % (11.5-15.5); WBC 12.2 k/uL (3.8-10.6)
[2017-12-01 04:43] LABS: ALT 42 U/L (9-52); AST 79 U/L (14-36); Albumin 2.6 g/dL (3.5-5.0); Alkaline Phosphatase 82 U/L (38-126); Anion Gap 7 mmol/L; Blood Urea Nitrogen 51 mg/dL (7-17); Carbon Dioxide 32 mmol/L (22-30); Chloride 103 mmol/L (98-107); Glucose 111 mg/dL (74-99); Magnesium 2.6 mg/dL (1.6-2.3); Phosphorus 3.7 mg/dL (2.5-4.5); Potassium 4.3 mmol/L (3.5-5.1); Sodium 142 mmol/L (137-145); Total Bilirubin 0.7 mg/dL (0.2-1.3); Total Protein 5.2 g/dL (6.3-8.2)
[2017-12-01 05:01] LABS: HGB 6.7 gm/dL (11.4-16.0)
[2017-12-01 06:44] LABS: Glucose,Whole Blood 109 mg/dL (75-99)
[2017-12-01] MEDS ORDERED: FUROSEMIDE 10 MG/ML 4 ML VIAL IV STA (06:46)
--- NOTE | 2017-12-01 07:55 | XR ---
EXAMINATION TYPE: XR chest 1V portable DATE OF EXAM: 12/01/2017 COMPARISON: Prior chest x-ray 11/30/2017 HISTORY: Chest tube, postop mitral valve replacement, coronary artery bypass graft TECHNIQUE: Single frontal view of the chest is obtained. FINDINGS: Right jugular central venous sheath, left-sided chest tube are in place. There is some imp rovement in aeration within the lungs. Heart remains enlarged, patient is post median sternotomy and atrial appendage clipping, mitral valve replacement. Bibasilar density is present. There is a left-si ded PICC line with the distal tip overlying the innominate vein level. No evident pneumothorax. Patie nt is rotated. There are overlying cardiac leads. IMPRESSION: There is some improvement in aeration, volume status.
--- NOTE | 2017-12-01 09:00 | P.PN ---
Subjective Progress Note Date: 12/01/17 Principal diagnosis: Status post one-vessel bypass grafting and mitral valve replacement Progress note dated 11/29/2017 This is a 67-year-old female status post one-vessel bypass grafting and mitral valve replacement. She apparently had surgery on the . Today is postop day #3. The patient currently remains on the mechanical ventilator. Her vent settings are the assist control mode rate of 1210 of I am is 550 FiO2 50% PEEP of 5. Arterial blood gases show a PaO2 of 135 a PaCO2 of 36 and a pH of 7.47. I'm to make a few changes including bumping the rate up from 12 to 20, and decreasing the tidal volume from 550 down to 400, and dropping the FiO2 from 50- 40%. The patient may not be weaned of old low because she remains on insulin drip at 1 unit per hour, Primacor 0.2 mics per kilogram per minute, norepinephrine at 2 mics per minute, half normal saline at 30 mL an hour and propofol at 25 g kilogram per minute. Chest x-rays consistent with fluid overload but bibasilar infiltrates and small effusions and microbiology is negative. The rest of the labs medications and x-rays are all reviewed. Progress note dated 11/30/2017 This is a 67-year-old female status post one-vessel bypass grafting and mitral valve replacement. She had surgery on the . She is postop day #4. She remains on mechanical ventilator. Yesterday, her chest x-ray showed evidence of fluid overload. She did get some diuretics. Today's chest x-ray still shows evidence of fluid overload although it might be slightly improved. She's currently still on the mechanical ventilator on the assist control mode, rate of 26, tidal volume 400, PEEP of 8, FiO2 40%. The patient's arterial blood gases show a PaO2 of 94 and pH 7.46 in a PaCO2 of 41. The patient will get a daily eruption of sedation and a spontaneous breathing trial. The patient remains on norepinephrine at 3 mcg/m, propofol at 30 mics per kilogram per minute, Primacor 0.2 mics per kilogram per minute, half normal saline IV at 15 mL an hour and vital 1.2 at 60 with a goal of 60 mL an hour. The patient failed her spontaneous breathing trial yesterday very quickly, and afterwards, she became dyssynchronous with the ventilator and I had to bump up the PEEP level to 8 and increase her respiratory rate to 26. We also dropped the tidal volume down to 400. She is much more in synchrony today. Progress note dated 12/01/2017 This is a 67-year-old female who is postop day #5, status post one-vessel bypass grafting and mitral valve replacement. She also has a history of postoperative respiratory failure with failure to wean. She was extubated yesterday though. Chest x-ray has evidence of fluid overload which actually is improved. In addition, the patient had acute blood loss anemia requiring blood transfusion postsurgically, hypertension severe mitral regurgitation left subclavian stenosis paroxysmal atrial fibrillation GI bleed and obesity. Yesterday, post extubation we gave the patient 1 shot of Solu-Medrol 60 mg IV push and also put her on BiPAP at 14/5 and 40%. Chest x-ray does show improvement. Today her hemoglobin is below 7 and she'll receive 1 unit of blood followed by some Lasix IV. In addition, I may add on some IV site Medrol and a smaller dose than normal and also some Pulmicort 1 mg twice a day. Objective - Vital Signs Vital signs: Vital Signs Temp 99.3 F 12/01/17 04:00 Pulse 116 H 12/01/17 08:40 Resp 20 12/01/17 07:00 BP 99/51 12/01/17 07:00 Pulse Ox 99 12/01/17 07:00 Intake & Output 11/30/17 12/01/17 12/01/17 18:59 06:59 18:59 Intake Total 1004.623 309.707 18.7 Output Total 1440 772 20 Balance -435.377 -462.293 -1.3 Weight 109.9 kg 105.4 kg Intake: IV 232 218.7 18.7 CO/CI 20 Milrinone-D5w Pmx 20 mg 62.7 5.7 In Dextrose/Water 1 100ml .bag @ 0.2 MCG/KG/MIN 6. 58 mls/hr IV .[id number] [facility] Rx#:[id number] Pressure Bag 72 36 3 Sodium Chloride 0.45% 1, 140 120 10 000 ml @ 10 mls/hr IV . Q24H [facility] Rx#:[id number] Intake, IV Titration 87.623 91.007 Amount Milrinone-D5w Pmx 20 mg 8.993 91.007 In Dextrose/Water 1 100ml .bag @ 0.2 MCG/KG/MIN 6. 58 mls/hr IV .[id number] [facility] Rx#:[id number] Norepinephrin 16 mg-0.9% 36.110 Ns Pmx 16 mg In 250 ml @ Titrate IV .Q0M [facility] Rx#: [id number] Propofol 1,000 mg In 42.520 Empty Bag 1 bag @ Titrate IV .Q0M [facility] Rx#: [id number] Tube Feeding 300 Blood Product 310 Rc As-1 Unit 310 [id number] Other 75 Output: Chest Tube Drainage 90 140 0 BL Mediastinal 20 Left Pleural 70 140 0 Urine 1350 632 20 Other: Voiding Method Indwelling Catheter Indwelling Catheter ABP, PAP, CO, CI - Last Documented Arterial Blood Pressure 110/60 Pulmonary Artery Pressure 38/33 Cardiac Output 5.8 Cardiac Index 2.9 - Exam No acute distress, patient is on BiPAP. BiPAP settings are 14/5 and 40%. NG tube and endotracheal tube removed yesterday. HEENT examination is grossly unremarkable. Mucous membranes are moist. No oral lesions. Neck supple. Full range of motion. No adenopathy thyromegaly or neck vein distention. Cardiovascular examination reveals regular rhythm rate. S1-S2 normal. No S3 or S4. No discernible murmur noted. Lungs reveal very coarse bilateral breath sounds. Her sounds are equal bilaterally. No wheezes. A few scattered crackles. Abdomen soft bowel sounds are heard. No masses or tenderness. Extremities are intact. No cyanosis clubbing or edema. Skin is without rash or lesion. Neurologic examination could not be adequately assessed as patient is currently sedated - Labs CBC & Chem 7: 12/01/17 04:12 12/01/17 04:12 Labs: Abnormal Lab Results - Last 24 Hours (Table) 11/30/17 11/30/17 12/01/17 Range/Units 10:19 12:15 00:25 WBC (3.8-10.6) k/uL RBC (3.80-5.40) m/uL Hgb (11.4-16.0) gm/dL Hct (34.0-46.0) % MCHC (31.0-37.0) g/dL RDW (11.5-15.5) % Plt Count (150-450) k/uL ABG pH 7.47 H (7.35-7.45) ABG HCO3 29 H (21-25) mmol/L ABG Total CO2 30 H (19-24) mmol/L ABG O2 Saturation 99.4 H (94-97) % Carbon Dioxide (22-30) mmol/L BUN (7-17) mg/dL Glucose (74-99) mg/dL POC Glucose (mg/dL) 106 H 126 H (75-99) mg/dL Calcium (8.4-10.2) mg/dL Magnesium (1.6-2.3) mg/dL AST (14-36) U/L Total Protein (6.3-8.2) g/dL Albumin (3.5-5.0) g/dL Crossmatch 12/01/17 12/01/17 12/01/17 Range/Units 04:12 04:12 06:42 WBC 12.2 H (3.8-10.6) k/uL RBC 2.55 L (3.80-5.40) m/uL Hgb 6.7 L* (11.4-16.0) gm/dL Hct 22.7 L (34.0-46.0) % MCHC 29.6 L (31.0-37.0) g/dL RDW 18.2 H (11.5-15.5) % Plt Count 103 L (150-450) k/uL ABG pH (7.35-7.45) ABG HCO3 (21-25) mmol/L ABG Total CO2 (19-24) mmol/L ABG O2 Saturation (94-97) % Carbon Dioxide 32 H (22-30) mmol/L BUN 51 H (7-17) mg/dL Glucose 111 H (74-99) mg/dL POC Glucose (mg/dL) 109 H (75-99) mg/dL Calcium 8.0 L (8.4-10.2) mg/dL Magnesium 2.6 H (1.6-2.3) mg/dL AST 79 H (14-36) U/L Total Protein 5.2 L (6.3-8.2) g/dL Albumin 2.6 L (3.5-5.0) g/dL Crossmatch 12/01/17 Range/Units 07:45 WBC (3.8-10.6) k/uL RBC (3.80-5.40) m/uL Hgb (11.4-16.0) gm/dL Hct (34.0-46.0) % MCHC (31.0-37.0) g/dL RDW (11.5-15.5) % Plt Count (150-450) k/uL ABG pH (7.35-7.45) ABG HCO3 (21-25) mmol/L ABG Total CO2 (19-24) mmol/L ABG O2 Saturation (94-97) % Carbon Dioxide (22-30) mmol/L BUN (7-17) mg/dL Glucose (74-99) mg/dL POC Glucose (mg/dL) (75-99) mg/dL Calcium (8.4-10.2) mg/dL Magnesium (1.6-2.3) mg/dL AST (14-36) U/L Total Protein (6.3-8.2) g/dL Albumin (3.5-5.0) g/dL Crossmatch See Detail Assessment and Plan Assessment: Assessment Postop day #5, status post one-vessel bypass grafting and mitral valve replacement Postoperative respiratory failure with failure to wean, with extubation occurring on 11/30/2017 Chest x-ray evidence of fluid overload Acute blood loss anemia requiring blood transfusion History of hypertension History of severe mitral regurgitation History of left subclavian stenosis Paroxysmal atrial fibrillation History of GI bleed Obesity Plan: Plan dated 11/29/2017 I will make some vent changes today including repeat increasing the rate from 12 -20, dropping the time of I'm down from 550 mL down to 400 mL and also reducing the FiO2 40%. We'll see if we can wean her off the norepinephrine holding propofol and do a daily eruption of sedation to evaluate for spontaneous breathing trial. Microbiology is negative. Labs x-rays and medications all reviewed. Prognosis is guarded. Additional recommendations and suggestions are forthcoming. I believe she would benefit from some diuretics. Blood gases are reviewed. Plan dated 11/30/2017 The patient will again have a daily eruption of sedation with a spontaneous breathing trial. She still remains on a number of different IV medications including norepinephrine, fall, Primacor. Arterial blood gases today are very reasonable. Her vent settings were adjusted yesterday. She's getting nourishment. We'll continue to follow closely. Labs x-rays a medications are reviewed. Hopeful improvement in the next day or so and eventual extubation. Plan dated 11/23/2017 The patient seems to be doing a bit better. Her chest x-ray certainly improved. She'll receive 1 unit of blood. She feels better. She still on BiPAP. She has significant edema throughout. Chest x-ray is improved. I do agree with 1 unit of blood followed by Salma. We'll continue to follow closely. Medications x-rays and labs are reviewed. Time with Patient: Greater than 30
--- NOTE | 2017-12-01 09:57 | PN ---
PROGRESS NOTE This lady is status post mitral valve replacement and single vein graft to circumflex. She has been extubated. She is still on a BiPAP, making very modest progress. Urine output is fair. Remains in Atypical Atrial Flutter type rhythm or ectopic atrial rhythm at a rate of 118 per minute. Blood pressure is stable. S1-S2 heard normally. Slightly tachycardic. Lungs reveal fair air entry. Abdomen is soft. Lower extremities reveal diminished pulses. Rest of physical examination is unchanged. Prognosis remains guarded. Continue current therapy. MMODL / IJN: [id number] / MTDD
[2017-12-01] MEDS: PANTOPRAZOLE 40 MG/10 ML VIAL IVP SCH (10:14)
[2017-12-01] MEDS: AMIODARONE 200 MG TAB PO SCH ×2 (10:14→21:55)
[2017-12-01] MEDS: ATORVASTATIN 40 MG TAB PO SCH (10:14)
[2017-12-01] MEDS: ASPIRIN 81 MG PO SCH (10:14)
[2017-12-01] MEDS: METOPROLOL TARTRATE 12.5 MG TAB PO SCH ×2 (10:14→21:55)
--- NOTE | 2017-12-01 10:23 | P.PN ---
Subjective Progress Note Date: 12/01/17 Principal diagnosis: Severe mitral regurgitation. Coronary artery disease. Paroxysmal atrial fibrillation on Coumadin for anticoagulation. Recent hospitalization for lower GI bleed, duodenal ulcer. History of left subclavian stenosis with stent placement 2014 with recent discovery of critical re-in-stent stenosis. Previous tobacco dependence with preoperative FEV1 60% of predicted. Hypertension. Hyperlipidemia. Gallbladder disease. Family history of heart disease. Preoperative nasal swab positive for MRSA. Preoperative anemia. POD #6 mitral valve replacement using a 25 mm Ribera bioprosthetic tissue valve. Coronary artery bypass grafting 1, reverse saphenous vein graft to the obtuse marginal artery. Maze procedure. Endoscopic harvesting of the right greater saphenous vein. Epi-aortic ultrasound. Intraoperative transesophageal echocardiogram. Ligation of the left atrial appendage using a 40 mm AtriClip. Acute blood loss anemia, and expected outcome given patient's preoperative anemia and intraoperative bleeding. Postoperative prolonged mechanical ventilation secondary to hemodynamic instability, and unexpected but potential outcome of surgery given the extensive nature of her perioperative course The patient is currently sitting up in the bed in no acute distress. Was successfully extubated to BiPAP yesterday afternoon. Has remained relatively stable off norepinephrine drip. Remains on Primacor drip at 0.2 mcg/kg/m. Hemoglobin was low this morning at 6.7, will transfuse 1 unit packed red blood cells followed by 40 mg IV Lasix. Objective - Vital Signs Vital signs: Vital Signs Temp 99.3 F 12/01/17 04:00 Pulse 116 H 12/01/17 07:00 Resp 20 12/01/17 07:00 BP 99/51 12/01/17 07:00 Pulse Ox 99 12/01/17 07:00 Intake & Output 11/30/17 12/01/17 12/01/17 18:59 06:59 18:59 Intake Total 1004.623 309.707 18.7 Output Total 1440 772 20 Balance -435.377 -462.293 -1.3 Weight 109.9 kg 105.4 kg Intake: IV 232 218.7 18.7 CO/CI 20 Milrinone-D5w Pmx 20 mg 62.7 5.7 In Dextrose/Water 1 100ml .bag @ 0.2 MCG/KG/MIN 6. 58 mls/hr IV .[id number] [facility] Rx#:[id number] Pressure Bag 72 36 3 Sodium Chloride 0.45% 1, 140 120 10 000 ml @ 10 mls/hr IV . Q24H [facility] Rx#:[id number] Intake, IV Titration 87.623 91.007 Amount Milrinone-D5w Pmx 20 mg 8.993 91.007 In Dextrose/Water 1 100ml .bag @ 0.2 MCG/KG/MIN 6. 58 mls/hr IV .[id number] [facility] Rx#:[id number] Norepinephrin 16 mg-0.9% 36.110 Ns Pmx 16 mg In 250 ml @ Titrate IV .Q0M [facility] Rx#: [id number] Propofol 1,000 mg In 42.520 Empty Bag 1 bag @ Titrate IV .Q0M [facility] Rx#: [id number] Tube Feeding 300 Blood Product 310 Rc As-1 Unit 310 [id number] Other 75 Output: Chest Tube Drainage 90 140 0 BL Mediastinal 20 Left Pleural 70 140 0 Urine 1350 632 20 Other: Voiding Method Indwelling Catheter Indwelling Catheter ABP, PAP, CO, CI - Last Documented Arterial Blood Pressure 110/60 Pulmonary Artery Pressure 38/33 Cardiac Output 5.8 Cardiac Index 2.9 - Constitutional General appearance: Present: cooperative, no acute distress - Respiratory Details: Lungs sounds diminished with coarse breath sounds bilaterally. Respirations even, nonlabored. Currently on 7 LPM Hi flow NC with oxygen saturation 100%. Left pleural chest tube to -20 cm wall suction, 100 mL thin serosanguineous drainage overnight, 200 mL in the last 24 hours. No air leak present. - Cardiovascular Details: S1, S2 present. Regular, tachycardia rate and rhythm, atrial flutter on telemetry. A/V epicardial pacemaker wires present, connected to generator, generator currently on standby. Sternum stable. Palpable peripheral pulses bilaterally. Generalized edema present. No calf pain or tenderness noted. Right internal jugular Cordis, left brachial PICC line present. Heart hugger in place with patient demonstrating appropriate use. Antiembolism stockings, SCDs present. - Gastrointestinal Gastrointestinal Comment(s): Abdomen soft, nontender, nondistended, round. Active bowel sounds present 4 quadrants. Tolerating clear liquids. No bowel movement since surgery. - Genitourinary Genitourinary Comment(s): Mason present draining clear, yellow urine. Output 40-60 mL/h overnight. Did diurese well after IV Lasix given yesterday. - Integumentary Integumentary Comment(s): Skin is warm and dry with evidence of good perfusion. Anterior chest incision well approximated and covered with dry intact dressing. Left lower extremity EVH site well approximated with Dermabond. Area of open skin on lower back area. - Neurologic Neurologic: Present: CNII-XII intact - Musculoskeletal Musculoskeletal: Present: generalized weakness - Psychiatric Psychiatric: Present: A&O x's 3, appropriate affect, intact judgment & insight - Allied health notes Allied health notes reviewed: nursing - Labs CBC & Chem 7: 12/01/17 04:12 12/01/17 04:12 Labs: Abnormal Lab Results - Last 24 Hours (Table) 11/30/17 11/30/17 12/01/17 Range/Units 10:19 12:15 00:25 WBC (3.8-10.6) k/uL RBC (3.80-5.40) m/uL Hgb (11.4-16.0) gm/dL Hct (34.0-46.0) % MCHC (31.0-37.0) g/dL RDW (11.5-15.5) % Plt Count (150-450) k/uL ABG pH 7.47 H (7.35-7.45) ABG HCO3 29 H (21-25) mmol/L ABG Total CO2 30 H (19-24) mmol/L ABG O2 Saturation 99.4 H (94-97) % Carbon Dioxide (22-30) mmol/L BUN (7-17) mg/dL Glucose (74-99) mg/dL POC Glucose (mg/dL) 106 H 126 H (75-99) mg/dL Calcium (8.4-10.2) mg/dL Magnesium (1.6-2.3) mg/dL AST (14-36) U/L Total Protein (6.3-8.2) g/dL Albumin (3.5-5.0) g/dL 12/01/17 12/01/17 12/01/17 Range/Units 04:12 04:12 06:42 WBC 12.2 H (3.8-10.6) k/uL RBC 2.55 L (3.80-5.40) m/uL Hgb 6.7 L* (11.4-16.0) gm/dL Hct 22.7 L (34.0-46.0) % MCHC 29.6 L (31.0-37.0) g/dL RDW 18.2 H (11.5-15.5) % Plt Count 103 L (150-450) k/uL ABG pH (7.35-7.45) ABG HCO3 (21-25) mmol/L ABG Total CO2 (19-24) mmol/L ABG O2 Saturation (94-97) % Carbon Dioxide 32 H (22-30) mmol/L BUN 51 H (7-17) mg/dL Glucose 111 H (74-99) mg/dL POC Glucose (mg/dL) 109 H (75-99) mg/dL Calcium 8.0 L (8.4-10.2) mg/dL Magnesium 2.6 H (1.6-2.3) mg/dL AST 79 H (14-36) U/L Total Protein 5.2 L (6.3-8.2) g/dL Albumin 2.6 L (3.5-5.0) g/dL - Imaging and Cardiology Chest x-ray: report reviewed, image reviewed Assessment and Plan (1) Acute blood loss anemia Current Visit: Yes Status: Acute Code(s): D62 - ACUTE POSTHEMORRHAGIC ANEMIA SNOMED Code(s): 896455684 (2) CAD (coronary artery disease) Current Visit: Yes Status: Chronic Code(s): I25.10 - ATHSCL HEART DISEASE OF [place] CORONARY ARTERY W/O ANG PCTRS SNOMED Code(s): 40039685 (3) Hyperlipidemia Current Visit: Yes Status: Chronic Code(s): E78.5 - HYPERLIPIDEMIA, UNSPECIFIED SNOMED Code(s): 67203391 (4) Hypertension Current Visit: Yes Status: Chronic Code(s): I10 - ESSENTIAL (PRIMARY) HYPERTENSION SNOMED Code(s): 81745947 (5) Severe mitral regurgitation Current Visit: Yes Status: Chronic Code(s): I34.0 - NONRHEUMATIC MITRAL ( VALVE) INSUFFICIENCY SNOMED Code(s): 80654946 (6) Stenosis of left subclavian artery Current Visit: Yes Status: Chronic Code(s): I77.1 - STRICTURE OF ARTERY SNOMED Code(s): 556815444 (7) Paroxysmal atrial fibrillation Current Visit: No Status: Resolved Code(s): I48.0 - PAROXYSMAL ATRIAL FIBRILLATION SNOMED Code(s): 150873869 (8) History of GI bleed Current Visit: No Status: Resolved Code(s): Z87.19 - PERSONAL HISTORY OF OTHER DISEASES OF THE DIGESTIVE SYSTEM SNOMED Code(s): 423767283 (9) Family history of coronary artery disease Current Visit: Yes Status: Chronic Code(s): Z82.49 - FAMILY HX OF ISCHEM HEART DIS AND OTH DIS OF THE CIRC SYS SNOMED Code(s): 061181458 Plan: 1. Continue baby aspirin, statin, beta krunal, Arixtra. Will increase beta krunal therapy as tolerated. HIT panel negative. 2. Continue amiodarone for history of paroxysmal atrial fibrillation on home amiodarone, currently uncontrolled atrial flutter. 3. Wean O2 as tolerated. BiPAP management per pulmonology. Encourage incentive spirometry use 10x every hour. 4. Continue Primacor for now. 5. Likely will discontinue left pleural chest tube today. 6. Will monitor labs, chest x-rays. 1 unit PRBCs ordered for hemoglobin 6.7 to be followed with 40 mg IV Lasix. 7. Continue Mason catheter for strict accurate intake and output. 8. GI/DVT prophylaxis. 9. Patient continues to remain relatively stable. Will continue to monitor closely. 10. More recommendations as patient progresses. Time with Patient: Greater than 30
--- NOTE | 2017-12-01 10:42 | CDI ---
Last Revision, September 2017 Documentation Clarification Form Date: 11/30/2017 2:43:00 PM From: Chuyita ArnettNavarreteEDUARDO, CCDS Admit Date: 11/25/2017 5:36:00 AM Patient Name: Maritza Sadler Visit Number: [id number] Discharge Date: ATTENTION: The Clinical Documentation Specialists (CDI) and [facility] Coding Staff appreciate your assistance in clarifying documentation. Please respond to the clarification below the line at the bottom and electronically sign. The CDI & [facility] Coding staff will review the response and follow-up if needed. Please note: Queries are made part of the Legal Health Record. If you have any questions, please contact the author of this message via ITS. Dr. John Garcia: Postoperative respiratory failure with failure to wean is documented in your & 11/30 pulmonary/critical care progress notes. 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 Post-Operative Diagnosis: Same Procedure performed: Mitral valve replacement, CABG x1, Modified MARIANGEL px, Ligation of left atrial appendage, Endoscopic harvest of right greater saphenous vein, intraoperative suture of ventricle. History/Risk Factors: CAD, rheumatic mitral valve stenosis, Atrial fibrillation , Hypertension, hypercholesterolemia, Gallbladder disease. Clinical Indicators: Patient's heart surgery was performed on 11/25, patient was weaned from vent on 11/30. Treatment: Multiple transfusions introperatively, IV Heparin, IV Mag Sulfate, IV Mag, Albuterol INH, IV NaBicarb, IV Vasopressin, IV Amiodarone, IV Lasix, IV Solumedrol. Currently on 40% BiPAP. In order to accurately reflect this patients severity of illness, please clarify if the post-operative diagnosis of postoperative respiratory failure is : An expected post-procedural or post-surgical condition; Integral to the procedure; Inherent to the procedure; An unexpected post-procedural or post-surgical condition related to surgical care; Other, please specify: Unable to determine Please continue to document in your progress notes and discharge summary in order to capture severity of illness and risk of mortality. Include clinical findings that support your diagnosis. MTDD
[2017-12-01] MEDS: FONDAPARINUX 2.5 MG/0.5 ML SYRINGE SQ SCH (11:44)
[2017-12-01] MEDS: HYDROcodone/APAP 5-325MG 1 EACH TAB PO PRN ×2 (12:47→22:44)
[2017-12-01 13:00] LABS: Glucose,Whole Blood 103 mg/dL (75-99)
--- NOTE | 2017-12-01 13:16 | US ---
EXAMINATION TYPE: US venous doppler duplex UE RT DATE OF EXAM: 12/01/2017 COMPARISON: NONE CLINICAL HISTORY: rule out DVT. ICU pt with right arm swelling SIDE PERFORMED: Right Grayscale, color Doppler, spectral Doppler imaging performed of the deep veins of the right upper ext remity. Visualized portions of the right subclavian vein, axillary vein, brachial veins, basilic vein , cephalic vein, radial veins and ulnar veins compress normally and show no abnormal echoes, there is color flow. Incidental note that the radial artery shows low-level internal echoes and lack of color flow, Doppler waveform. Right Arm: Negative for DVT Incidental finding possible right radial artery occlusion IMPRESSION: Grayscale, color doppler, spectral doppler imaging performed of the deep veins of the upper extremiti es. There is normal flow, compressibility and vascular waveforms. No evident deep venous thrombosis in the right upper extremity. Radial artery on the right is occlud ed.
[2017-12-01] MEDS: MILRINONE-D5W PMX 20 MG in DEXTROSE/WATER 1 100ML.BAG IV SCH (14:02)
[2017-12-01] MEDS: SODIUM CHLORIDE 0.45% 1,000 ML IV SCH (14:04)
--- NOTE | 2017-12-01 14:35 | P.CONS ---
History of Present Illness - Chief Complaint Cardiac debility - History of Present Illness I had the op to see patient for inpatient rehab consultation with regard to cardiac debility. She was admitted to [facility] November 25 for elective mitral valve replacement. Seen in ICU by pulmonary and cardiology. Chest x-rays followed and note resolving congestion. Recent right arm Doppler negative for DVT. Speech therapy assess swallow and recommend pured and thin liquids. PT and OT prescribed in fact seen patient when I evaluated patient. Previous functional history as elicited from daughter: 67-year-old right-handed white female who is lives in a first-floor of a 2 floor home with , daughter, patient's mother. Patient independent with cooking, laundry , driving, standing shower. Regular doctors Dr. Madden. History smoking but doesn't smoke or drink currently. Family history of cancer in mother and cardiac disease in father. Review of Systems Review of systems: ENT: Denies sneezes or discharge. Eyes: Denies discharge or photophobia. Cardiac: Denies chest pain or palpitation. Pulmonary: Mild shortness of breath with lightheadedness. Breast: Denies discharge or lumps. Gastrointestinal: Denies nausea, emesis, constipation, diarrhea. Genitourinary: Denies discharge or frequency. Musculoskeletal: Denies muscle or bone aches. Neurologic: Mild to moderate generalized weakness. Endocrine: Denies shakes or sweats. Oncology: Denies cancers. Dermatologic: Denies rash, itching, pruritus. ALLERGY/immunology: Denies sneezes, rashes. Past Medical History Past Medical History: Atrial Fibrillation, GI Bleed, Hyperlipidemia, Hypertension, Osteoarthritis (OA) Additional Past Medical History / Comment(s): HX: Was told "leaky valve", pt states has been experiencing "gallbladder pain", followed by dr small for sx & elevated liver enzymes, shortness of breath with activity, recent GI bleed- transfusion in October 2017, has left subclavian stent-mostly occluded History of Any Multi-Drug Resistant Organisms: None Reported Past Surgical History: Heart Catheterization, Heart Catheterization With Stent, Orthopedic Surgery, Tonsillectomy Additional Past Surgical History / Comment(s): L subclavian stent x2, Other SX:D &C,NILDA, carpal tunnel geovanni Past Anesthesia/Blood Transfusion Reactions: No Reported Reaction Additional Past Anesthesia/Blood Transfusion Reaction / Comm: recent transfusion -no problems Date of Last Stent Placement:: 05/03/15 Smoking Status: Former smoker - Past Family History Mother Family Medical History: Hypertension Additional Family Medical History / Comment(s): LEAKY HEART VALVES,HEART PROBLEMS, WITH BOWEL OBS Father Family Medical History: Myocardial Infarction (SC) Additional Family Medical History / Comment(s): HEART PROBLEMS, AT AGE 68 WITH SC Medications and Allergies Home Medications Medication Instructions Recorded Confirmed Type Escitalopram [Lexapro] 10 mg PO HS 02/01/14 11/25/17 History Aspirin EC [Ecotrin Low Dose] 81 mg PO HS 02/19/16 11/25/17 History Atorvastatin [Lipitor] 20 mg PO DAILY #30 tab 09/04/17 11/25/17 Rx Furosemide [Lasix] 20 mg PO DAILY #30 tab 09/04/17 11/25/17 Rx Metoprolol Tartrate [Lopressor] 12.5 mg PO BID 09/17/17 11/25/17 History Amiodarone [Cordarone] 200 mg PO DAILY 10/12/17 11/25/17 History Warfarin [Coumadin] 3 mg PO DAILY #30 tab 10/14/17 11/25/17 Rx Aspirin 325 mg PO ONCE 11/25/17 11/25/17 History Allergies Allergy/AdvReac Type Severity Reaction Status Date / Time codeine AdvReac Hallucinati Verified 11/25/17 15:17 ons Physical Exam Vitals: Vital Signs Temp Pulse Resp BP Pulse Ox 12/01/17 14:15 98.1 F 117 H 39 H 98/52 12/01/17 14:00 116 H 46 H 92/51 12/01/17 13:45 115 H 45 H 93/48 12/01/17 13:30 115 H 16 95/48 12/01/17 13:15 114 H 18 99/56 12/01/17 13:00 116 H 22 91/48 12/01/17 12:45 117 H 26 H 97/49 85 L 12/01/17 12:30 117 H 17 86/51 99 12/01/17 12:15 116 H 18 106/56 85 L 12/01/17 12:07 115 H 12/01/17 12:00 98.1 F 115 H 21 93/51 80 L 02/28/18 11:52 100 12/01/17 11:46 115 H 12/01/17 11:45 116 H 29 H 93/52 95 12/01/17 11:30 116 H 17 91/55 100 12/01/17 11:15 116 H 18 99/45 94 L 12/01/17 11:00 116 H 15 103/56 88 L 12/01/17 10:45 117 H 16 107/62 100 12/01/17 10:30 98.1 F 117 H 34 H 98/50 90 L 12/01/17 10:15 117 H 24 101/55 87 L 12/01/17 10:00 98.1 F 117 H 30 H 105/53 97 12/01/17 09:45 98.3 F 112 H 18 106/53 97 12/01/17 09:00 117 H 20 106/53 97 12/01/17 08:56 117 H 12/01/17 08:40 116 H 12/01/17 08:00 98.1 F 116 H 17 110/56 90 L 12/01/17 07:00 116 H 20 99/51 99 12/01/17 06:00 118 H 18 111/60 100 12/01/17 05:00 117 H 18 109/53 98 12/01/17 04:00 99.3 F 116 H 20 96/50 96 12/01/17 03:46 116 H 12/01/17 03:32 116 H 12/01/17 03:00 116 H 18 95/54 100 12/01/17 02:00 116 H 12 97/55 100 12/01/17 01:00 116 H 21 96/49 95 12/01/17 00:01 115 H 12/01/17 00:00 99 F 116 H 18 93/47 99 11/30/17 23:42 115 H 11/30/17 23:36 115 H 16 85/50 99 11/30/17 23:00 117 H 20 100/49 97 11/30/17 22:00 115 H 17 100/49 100 11/30/17 21:00 117 H 17 100/55 96 11/30/17 20:00 98.5 F 117 H 20 100/55 100 11/30/17 19:42 114 H 11/30/17 19:27 114 H 11/30/17 19:00 116 H 20 92/49 99 11/30/17 18:00 115 H 20 94/41 100 11/30/17 17:00 116 H 18 98/48 99 11/30/17 16:00 98.9 F 116 H 23 98/48 100 11/30/17 15:37 110 H 11/30/17 15:26 114 H 11/30/17 15:00 116 H 27 H 99/79 100 Intake and Output 11/30/17 12/01/17 12/01/17 22:59 06:59 14:59 Intake Total 199.107 149.6 628.5 Output Total 445 532 230 Balance -245.893 -382.4 398.5 Intake: IV 108.1 149.6 93.5 Milrinone-D5w Pmx 20 mg 17.1 45.6 28.5 In Dextrose/Water 1 100ml .bag @ 0.2 MCG/KG/MIN 6. 58 mls/hr IV .[id number] [facility] Rx#:[id number] Pressure Bag 21 24 15 Sodium Chloride 0.45% 1, 70 80 50 000 ml @ 10 mls/hr IV . Q24H [facility] Rx#:[id number] Intake, IV Titration 91.007 100 Amount Milrinone-D5w Pmx 20 mg 91.007 100 In Dextrose/Water 1 100ml .bag @ 0.2 MCG/KG/MIN 6. 58 mls/hr IV .[id number] [facility] Rx#:[id number] Blood Product 435 Rc As-1 Unit 310 [id number] Output: Chest Tube Drainage 30 110 20 Left Pleural 30 110 20 Urine 415 422 210 Other: Voiding Method Indwelling Catheter Indwelling Catheter Weight 109.9 kg 105.4 kg Skin: Mildly atrophic, intact. General: Obese and fatigued appearance. Head: Normocephalic, atraumatic. Eyes: Symmetric. Pupils equal round. Ears: Symmetric. Hearing within normal limits. Mouth: Clear. Neck: Supple. Carotid without bruit. Cardiac: Regular rate and rhythm. Midline sternotomy scar clean and dressed. Wearing heart hugger. Lungs: Clear anteriorly and posteriorly. Abdomen: Soft active nontender. Overweight. Extremities: Normal tone. Neurological: Mental status: Alert, cooperative, pleasant. Cranial nerves: Symmetric facial tone and trapezius. Motor: Can elevate all limbs with active movement distally. Sensation: Intact throughout. DTRs: Symmetric and equal throughout. Mobility: Sits and stands with 2 person assistance, PT and OT cotreating. Results CBC & Chem 7: 12/01/17 04:12 12/01/17 04:12 Labs: Abnormal Lab Results - Last 24 Hours (Table) 11/23/17 12/01/17 12/01/17 Range/Units 08:19 00:25 04:12 WBC 12.2 H (3.8-10.6) k/uL RBC 2.55 L (3.80-5.40) m/uL Hgb 6.7 L* (11.4-16.0) gm/dL Hct 22.7 L (34.0-46.0) % MCHC 29.6 L (31.0-37.0) g/dL RDW 18.2 H (11.5-15.5) % Plt Count 103 L (150-450) k/uL Carbon Dioxide (22-30) mmol/L BUN (7-17) mg/dL Glucose (74-99) mg/dL POC Glucose (mg/dL) 126 H (75-99) mg/dL Calcium (8.4-10.2) mg/dL Magnesium (1.6-2.3) mg/dL AST (14-36) U/L Total Protein (6.3-8.2) g/dL Albumin (3.5-5.0) g/dL Crossmatch See Detail 12/01/17 12/01/17 12/01/17 Range/Units 04:12 06:42 07:45 WBC (3.8-10.6) k/uL RBC (3.80-5.40) m/uL Hgb (11.4-16.0) gm/dL Hct (34.0-46.0) % MCHC (31.0-37.0) g/dL RDW (11.5-15.5) % Plt Count (150-450) k/uL Carbon Dioxide 32 H (22-30) mmol/L BUN 51 H (7-17) mg/dL Glucose 111 H (74-99) mg/dL POC Glucose (mg/dL) 109 H (75-99) mg/dL Calcium 8.0 L (8.4-10.2) mg/dL Magnesium 2.6 H (1.6-2.3) mg/dL AST 79 H (14-36) U/L Total Protein 5.2 L (6.3-8.2) g/dL Albumin 2.6 L (3.5-5.0) g/dL Crossmatch See Detail 12/01/17 Range/Units 12:57 WBC (3.8-10.6) k/uL RBC (3.80-5.40) m/uL Hgb (11.4-16.0) gm/dL Hct (34.0-46.0) % MCHC (31.0-37.0) g/dL RDW (11.5-15.5) % Plt Count (150-450) k/uL Carbon Dioxide (22-30) mmol/L BUN (7-17) mg/dL Glucose (74-99) mg/dL POC Glucose (mg/dL) 103 H (75-99) mg/dL Calcium (8.4-10.2) mg/dL Magnesium (1.6-2.3) mg/dL AST (14-36) U/L Total Protein (6.3-8.2) g/dL Albumin (3.5-5.0) g/dL Crossmatch Chest x-ray: report reviewed (Followed for resolving congestion.) Venous US: report reviewed (Right upper extremity Doppler negative for DVT.) Assessment and Plan (1) Severe mitral regurgitation Current Visit: Yes Status: Chronic Code(s): I34.0 - NONRHEUMATIC MITRAL ( VALVE) INSUFFICIENCY SNOMED Code(s): 16013047 Plan: Impression: 1. Cardiac debility. 2. Severe mitral valve disease status post recent replacement. 3. Obese. 4. Pulmonary congestion. 5. Active fibrillation. 6. Hypertension. 7. Dyslipidemia. 8. Osteoarthritis. Comments and plan: At this time PT, OT, [employer] all ongoing. Follow therapies with yourself. Have discussed with patient and daughter that I'm here for possible rehab pending safety concerns and the ability tolerate therapy.
[2017-12-01] MEDS: methylPREDNISolone SOD SUCCI 40 MG/ML 1 ML VIAL IV SCH (17:04)
[2017-12-01 17:05] LABS: Glucose,Whole Blood 97 mg/dL (75-99)
[2017-12-01] MEDS: IPRATROPIUM-ALBUTEROL 3 ML NEB INHALATION PRN (18:09)
--- NOTE | 2017-12-01 18:40 | XR ---
EXAMINATION TYPE: XR chest 1V portable DATE OF EXAM: 12/01/2017 COMPARISON: Today HISTORY: Difficulty breathing TECHNIQUE: Single frontal view of the chest is obtained. FINDINGS: Heart is enlarged. There is left-sided chest tube noted. There is no sign of a pneumothora x. There is right central venous catheter with tip in the superior vena cava. There is blunting of ri ght costophrenic angle. IMPRESSION: Moderate cardiomegaly. No gross heart failure. Right pleural effusion. No pneumothorax s een. No change compared to exam earlier today.
[2017-12-01] MEDS: FORMOTEROL FUMARATE 20 MCG/2 ML NEBU INHALATION SCH (20:50)
[2017-12-01] MEDS: BUDESONIDE 1 MG/2 ML NEBU INHALATION SCH (20:50)
[2017-12-01] MEDS: SENNOSIDES-DOCUSATE SODIUM 1 EACH TAB PO SCH (21:55)
[2017-12-02 01:10] LABS: Glucose,Whole Blood 118 mg/dL (75-99)
[2017-12-02] MEDS: methylPREDNISolone SOD SUCCI 40 MG/ML 1 ML VIAL IV SCH ×4 (01:10→23:38)
[2017-12-02] MEDS: INSULIN ASPART 100 UNIT/ML 1 ML 10 ML VIAL SQ SCH ×5 (01:11→20:44)
[2017-12-02] MEDS: IPRATROPIUM-ALBUTEROL 3 ML NEB INHALATION SCH ×5 (03:30→19:32)
[2017-12-02 04:41] LABS: Anisocytosis Slight; HCT 25.1 % (34.0-46.0); Hypochromasia Marked; MCH 27.9 pg (25.0-35.0); MCHC 31.9 g/dL (31.0-37.0); MCV 87.7 fL (80.0-100.0); Mean Platelet Volume 8.7; Platelet Count 150 k/uL (150-450); Poikilocytosis Moderate; RBC 2.86 m/uL (3.80-5.40); RDW 17.7 % (11.5-15.5)
[2017-12-02 04:44] LABS: Ionized Calcium 4.8 mg/dL (4.5-5.3)
[2017-12-02 04:54] LABS: ALT 33 U/L (9-52); AST 65 U/L (14-36); Albumin 2.6 g/dL (3.5-5.0); Alkaline Phosphatase 78 U/L (38-126); Anion Gap 5 mmol/L; Blood Urea Nitrogen 51 mg/dL (7-17); Calcium 8.2 mg/dL (8.4-10.2); Carbon Dioxide 33 mmol/L (22-30); Chloride 102 mmol/L (98-107); Glucose 113 mg/dL (74-99); Magnesium 2.6 mg/dL (1.6-2.3); Sodium 140 mmol/L (137-145); Total Bilirubin 0.8 mg/dL (0.2-1.3); Total Protein 5.3 g/dL (6.3-8.2)
[2017-12-02 05:11] LABS: Lymphocytes # (M) 0.35 k/uL (1.0-4.8); Monocytes # (M) 0.35 k/uL (0-1.0); Neutrophils % (M) 95 %; Nucleated Red Blood Cells 1 /100 WBC (0-0); Total Cells Counted 200
[2017-12-02 05:12] LABS: Neutrophils # (M) 11.12 k/uL (1.3-7.7); WBC 11.7 k/uL (3.8-10.6)
[2017-12-02 05:13] LABS: Polychromasia Present; Target Cells Present
[2017-12-02 06:59] LABS: Glucose,Whole Blood 114 mg/dL (75-99)
[2017-12-02] MEDS: BUDESONIDE 1 MG/2 ML NEBU INHALATION SCH ×2 (07:19→19:32)
[2017-12-02] MEDS: FORMOTEROL FUMARATE 20 MCG/2 ML NEBU INHALATION SCH ×2 (07:36→19:41)
[2017-12-02] MEDS: ASPIRIN 81 MG PO SCH (08:10)
[2017-12-02] MEDS: PANTOPRAZOLE 40 MG/10 ML VIAL IVP SCH (08:10)
[2017-12-02] MEDS: FONDAPARINUX 2.5 MG/0.5 ML SYRINGE SQ SCH (08:10)
[2017-12-02] MEDS: ATORVASTATIN 40 MG TAB PO SCH (08:10)
[2017-12-02] MEDS: AMIODARONE 200 MG TAB PO SCH ×2 (08:10→20:36)
[2017-12-02] MEDS ORDERED: FUROSEMIDE 10 MG/ML 2 ML VIAL IV ONE (08:36)
[2017-12-02] MEDS: MILRINONE-D5W PMX 20 MG in DEXTROSE/WATER 1 100ML.BAG IV SCH (08:57)
[2017-12-02] MEDS: METOPROLOL TARTRATE 25 MG TAB PO SCH ×2 (08:59→20:36)
--- NOTE | 2017-12-02 09:19 | P.PN ---
Subjective Progress Note Date: 12/02/17 Principal diagnosis: Status post one-vessel bypass grafting and mitral valve replacement Progress note dated 11/29/2017 This is a 67-year-old female status post one-vessel bypass grafting and mitral valve replacement. She apparently had surgery on the . Today is postop day #3. The patient currently remains on the mechanical ventilator. Her vent settings are the assist control mode rate of 1210 of I am is 550 FiO2 50% PEEP of 5. Arterial blood gases show a PaO2 of 135 a PaCO2 of 36 and a pH of 7.47. I'm to make a few changes including bumping the rate up from 12 to 20, and decreasing the tidal volume from 550 down to 400, and dropping the FiO2 from 50- 40%. The patient may not be weaned of old low because she remains on insulin drip at 1 unit per hour, Primacor 0.2 mics per kilogram per minute, norepinephrine at 2 mics per minute, half normal saline at 30 mL an hour and propofol at 25 g kilogram per minute. Chest x-rays consistent with fluid overload but bibasilar infiltrates and small effusions and microbiology is negative. The rest of the labs medications and x-rays are all reviewed. Progress note dated 11/30/2017 This is a 67-year-old female status post one-vessel bypass grafting and mitral valve replacement. She had surgery on the . She is postop day #4. She remains on mechanical ventilator. Yesterday, her chest x-ray showed evidence of fluid overload. She did get some diuretics. Today's chest x-ray still shows evidence of fluid overload although it might be slightly improved. She's currently still on the mechanical ventilator on the assist control mode, rate of 26, tidal volume 400, PEEP of 8, FiO2 40%. The patient's arterial blood gases show a PaO2 of 94 and pH 7.46 in a PaCO2 of 41. The patient will get a daily eruption of sedation and a spontaneous breathing trial. The patient remains on norepinephrine at 3 mcg/m, propofol at 30 mics per kilogram per minute, Primacor 0.2 mics per kilogram per minute, half normal saline IV at 15 mL an hour and vital 1.2 at 60 with a goal of 60 mL an hour. The patient failed her spontaneous breathing trial yesterday very quickly, and afterwards, she became dyssynchronous with the ventilator and I had to bump up the PEEP level to 8 and increase her respiratory rate to 26. We also dropped the tidal volume down to 400. She is much more in synchrony today. Progress note dated 12/01/2017 This is a 67-year-old female who is postop day #5, status post one-vessel bypass grafting and mitral valve replacement. She also has a history of postoperative respiratory failure with failure to wean. She was extubated yesterday though. Chest x-ray has evidence of fluid overload which actually is improved. In addition, the patient had acute blood loss anemia requiring blood transfusion postsurgically, hypertension severe mitral regurgitation left subclavian stenosis paroxysmal atrial fibrillation GI bleed and obesity. Yesterday, post extubation we gave the patient 1 shot of Solu-Medrol 60 mg IV push and also put her on BiPAP at 14/5 and 40%. Chest x-ray does show improvement. Today her hemoglobin is below 7 and she'll receive 1 unit of blood followed by some Lasix IV. In addition, I may add on some IV site Medrol and a smaller dose than normal and also some Pulmicort 1 mg twice a day. Progress note dated 12/02/2017 67-year-old female who is postop day #6 status post single-vessel bypass grafting and mitral valve replacement. The patient has been doing very well the last day and a half to 2 days. She has a history of postoperative respiratory failure and initially, failure to wean. She was extubated 2 days ago. She has had to use of BiPAP on and off since that time. She did receive 1 unit of PRBCs yesterday followed by some Lasix 40 mg IV push. Her chest x- ray my opinion still so-so some fluid overload with a small pool of pleural effusion. Other than that, the patient seemed be doing relatively well. She has a history of hypertension severe mitral regurgitation blood loss anemia following surgery left subclavian stenosis paroxysmal atrial fibrillation GI bleed and obesity. This morning, she'll come off the BiPAP and go back to nasal O2. She prefers a nasal O2 over the BiPAP device. She may have had an episode of aspiration last night. Speech pathology was consulted. In addition , I did check for a DVT in the right upper extremity and the Doppler was negative. Objective - Vital Signs Vital signs: Vital Signs Temp 97.8 F 12/02/17 05:00 Pulse 119 H 12/02/17 07:44 Resp 16 12/02/17 07:21 BP 119/63 12/02/17 07:00 Pulse Ox 99 12/02/17 07:00 Intake & Output 12/01/17 12/02/17 12/02/17 18:59 06:59 18:59 Intake Total 942.9 225.7 10 Output Total 1077 765 90 Balance -134.1 -539.3 -80 Weight 105 kg Intake: IV 183.0 120 10 Milrinone-D5w Pmx 20 mg 28.5 In Dextrose/Water 1 100ml .bag @ 0.2 MCG/KG/MIN 6. 58 mls/hr IV .[id number] [facility] Rx#:[id number] Pressure Bag 34.5 Sodium Chloride 0.45% 1, 120 120 10 000 ml @ 10 mls/hr IV . Q24H [facility] Rx#:[id number] Intake, IV Titration 139.9 105.7 Amount Milrinone-D5w Pmx 20 mg 139.9 105.7 In Dextrose/Water 1 100ml .bag @ 0.2 MCG/KG/MIN 6. 58 mls/hr IV .[id number] [facility] Rx#:[id number] Blood Product 620 Rc As-1 Unit 310 [id number] Output: Chest Tube Drainage 60 50 0 Left Pleural 60 50 0 Urine 1017 715 90 Other: Voiding Method Indwelling Catheter Indwelling Catheter ABP, PAP, CO, CI - Last Documented Arterial Blood Pressure 110/60 Pulmonary Artery Pressure 38/33 Cardiac Output 5.8 Cardiac Index 2.9 - Exam No acute distress, patient is on BiPAP. BiPAP settings are 14/5 and 40%. NG tube and endotracheal tube removed yesterday. HEENT examination is grossly unremarkable. Mucous membranes are moist. No oral lesions. Neck supple. Full range of motion. No adenopathy thyromegaly or neck vein distention. Cardiovascular examination reveals regular rhythm rate. S1-S2 normal. No S3 or S4. No discernible murmur noted. Lungs reveal very coarse bilateral breath sounds. Her sounds are equal bilaterally. No wheezes. A few scattered crackles. Abdomen soft bowel sounds are heard. No masses or tenderness. Extremities are intact. No cyanosis clubbing or edema. Skin is without rash or lesion. Neurologic examination could not be adequately assessed as patient is currently sedated - Labs CBC & Chem 7: 12/02/17 04:28 12/02/17 04:28 Labs: Abnormal Lab Results - Last 24 Hours (Table) 11/23/17 12/01/17 12/01/17 Range/Units 08:19 07:45 12:57 WBC (3.8-10.6) k/uL RBC (3.80-5.40) m/uL Hgb (11.4-16.0) gm/dL Hct (34.0-46.0) % RDW (11.5-15.5) % Neutrophils # (Manual) (1.3-7.7) k/uL Lymphocytes # (Manual) (1.0-4.8) k/uL Nucleated RBCs (0-0) /100 WBC Carbon Dioxide (22-30) mmol/L BUN (7-17) mg/dL Glucose (74-99) mg/dL POC Glucose (mg/dL) 103 H (75-99) mg/dL Calcium (8.4-10.2) mg/dL Magnesium (1.6-2.3) mg/dL AST (14-36) U/L Total Protein (6.3-8.2) g/dL Albumin (3.5-5.0) g/dL Crossmatch See Detail See Detail 12/02/17 12/02/17 12/02/17 Range/Units 01:07 04:28 04:28 WBC 11.7 H (3.8-10.6) k/uL RBC 2.86 L (3.80-5.40) m/uL Hgb 8.0 L (11.4-16.0) gm/dL Hct 25.1 L (34.0-46.0) % RDW 17.7 H (11.5-15.5) % Neutrophils # (Manual) 11.12 H (1.3-7.7) k/uL Lymphocytes # (Manual) 0.35 L (1.0-4.8) k/uL Nucleated RBCs 1 H (0-0) /100 WBC Carbon Dioxide 33 H (22-30) mmol/L BUN 51 H (7-17) mg/dL Glucose 113 H (74-99) mg/dL POC Glucose (mg/dL) 118 H (75-99) mg/dL Calcium 8.2 L (8.4-10.2) mg/dL Magnesium 2.6 H (1.6-2.3) mg/dL AST 65 H (14-36) U/L Total Protein 5.3 L (6.3-8.2) g/dL Albumin 2.6 L (3.5-5.0) g/dL Crossmatch 12/02/17 Range/Units 06:57 WBC (3.8-10.6) k/uL RBC (3.80-5.40) m/uL Hgb (11.4-16.0) gm/dL Hct (34.0-46.0) % RDW (11.5-15.5) % Neutrophils # (Manual) (1.3-7.7) k/uL Lymphocytes # (Manual) (1.0-4.8) k/uL Nucleated RBCs (0-0) /100 WBC Carbon Dioxide (22-30) mmol/L BUN (7-17) mg/dL Glucose (74-99) mg/dL POC Glucose (mg/dL) 114 H (75-99) mg/dL Calcium (8.4-10.2) mg/dL Magnesium (1.6-2.3) mg/dL AST (14-36) U/L Total Protein (6.3-8.2) g/dL Albumin (3.5-5.0) g/dL Crossmatch Assessment and Plan Assessment: Assessment Postop day #6, status post one-vessel bypass grafting and mitral valve replacement Postoperative respiratory failure with failure to wean, with extubation occurring on 11/30/2017 Chest x-ray evidence of fluid overload Acute blood loss anemia requiring blood transfusion History of hypertension History of severe mitral regurgitation History of left subclavian stenosis Paroxysmal atrial fibrillation History of GI bleed Obesity Possible aspiration Plan: Plan dated 11/29/2017 I will make some vent changes today including repeat increasing the rate from 12 -20, dropping the time of I'm down from 550 mL down to 400 mL and also reducing the FiO2 40%. We'll see if we can wean her off the norepinephrine holding propofol and do a daily eruption of sedation to evaluate for spontaneous breathing trial. Microbiology is negative. Labs x-rays and medications all reviewed. Prognosis is guarded. Additional recommendations and suggestions are forthcoming. I believe she would benefit from some diuretics. Blood gases are reviewed. Plan dated 11/30/2017 The patient will again have a daily eruption of sedation with a spontaneous breathing trial. She still remains on a number of different IV medications including norepinephrine, fall, Primacor. Arterial blood gases today are very reasonable. Her vent settings were adjusted yesterday. She's getting nourishment. We'll continue to follow closely. Labs x-rays a medications are reviewed. Hopeful improvement in the next day or so and eventual extubation. Plan dated 11/23/2017 The patient seems to be doing a bit better. Her chest x-ray certainly improved. She'll receive 1 unit of blood. She feels better. She still on BiPAP. She has significant edema throughout. Chest x-ray is improved. I do agree with 1 unit of blood followed by Salma. We'll continue to follow closely. Medications x-rays and labs are reviewed. Plan dated 12/02/2017 The patient will come off the BiPAP morning go back on nasal O2. Speech pathology was consulted. Chest x-ray looks about the same or slightly better. Still showing a bit of fluid overload. In addition, a Doppler of the right upper extremity was negative for DVT. The patient otherwise seems be doing reasonably well. We'll continue to follow. She is on Primacor and 0.2 mics per kilogram per minute and a half normal saline IV at KVO. BiPAP settings are 14/5 and 40%. Critical care time 34 minutes Time with Patient: Greater than 30
--- NOTE | 2017-12-02 09:27 | P.PN ---
Subjective Progress Note Date: 12/02/17 Principal diagnosis: Severe mitral valve regurgitation. Coronary artery disease. Preoperative paroxysmal atrial fibrillation on outpatient Coumadin for anticoagulation. Recent hospitalization for lower GI bleed, and duodenal ulcer. History of left subclavian stenosis with stent placement 2014 with recent discovery of critical re-in-stent stenosis. Previous tobacco dependence with preoperative FEV1 60% of predicted. Hypertension. Hyperlipidemia. Depression on Lexapro. Gallbladder disease. Family history of heart disease. Preoperative nasal swab positive for MRSA. Preoperative anemia with hemoglobin. POD #7 Mitral valve replacement using a 25 mm Ribera bioprosthetic tissue valve. Coronary artery bypass grafting 1, a reverse greater saphenous vein graft to the obtuse marginal coronary artery. Endoscopic harvesting of the left greater saphenous vein. Modified MAZE procedure. The report wasn't back yet not back in Ligation of the left atrial appendage using a 40 mm AtriClip. Epi- aortic ultrasound. Intraoperative transesophageal echocardiogram. Acute blood loss anemia, an expected outcome given patient's preoperative anemia and intraoperative bleeding. Postoperative prolonged mechanical ventilation secondary to hemodynamic instability, an unexpected but potential outcome of surgery given the extensive nature of her postoperative course. Patient is currently sitting in the chair position in bed. She is in no acute distress. She is currently on BiPAP 14/5 with a rate of 12 FiO2 40%, oxygen saturations are 98%. She is alert and oriented x 3. Remains on Primacor drip at 0.2 mcg/kg/m. she is moving all 4 tremors appropriately. She is complaining of generalized weakness. She received 1 unit of packed red blood cells just today for hemoglobin of 6.7. Objective - Vital Signs Vital signs: Vital Signs Temp 97.8 F 12/02/17 05:00 Pulse 119 H 12/02/17 07:44 Resp 16 12/02/17 07:21 BP 119/63 12/02/17 07:00 Pulse Ox 99 12/02/17 07:00 Intake & Output 12/01/17 12/02/17 12/02/17 18:59 06:59 18:59 Intake Total 942.9 125.7 10 Output Total 1077 765 90 Balance -134.1 -639.3 -80 Weight 105 kg Intake: IV 183.0 120 10 Milrinone-D5w Pmx 20 mg 28.5 In Dextrose/Water 1 100ml .bag @ 0.2 MCG/KG/MIN 6. 58 mls/hr IV .[id number] [facility]LEE Rx#:[id number] Pressure Bag 34.5 Sodium Chloride 0.45% 1, 120 120 10 000 ml @ 10 mls/hr IV . Q24H CARLEE Rx#:[id number] Intake, IV Titration 139.9 5.7 Amount Milrinone-D5w Pmx 20 mg 139.9 5.7 In Dextrose/Water 1 100ml .bag @ 0.2 MCG/KG/MIN 6. 58 mls/hr IV .[id number] [facility]LEE Rx#:[id number] Blood Product 620 Rc As-1 Unit 310 [id number] Output: Chest Tube Drainage 60 50 0 Left Pleural 60 50 0 Urine 1017 715 90 Other: Voiding Method Indwelling Catheter Indwelling Catheter ABP, PAP, CO, CI - Last Documented Arterial Blood Pressure 110/60 Pulmonary Artery Pressure 38/33 Cardiac Output 5.8 Cardiac Index 2.9 - Constitutional General appearance: Present: cooperative, no acute distress, obese - EENT ENT: Present: hearing grossly normal - Neck Details: No JVD, no lymphadenopathy, neck is supple. - Respiratory Details: Lung sounds with scattered rhonchi throughout, diminished her bilateral bases. Respirations are symmetrical and nonlabored with BiPAP support. Current BiPAP settings are 14/5, rate of 12, FiO2 40%. Oxygen saturations are 98% with BiPAP support. Left pleural chest tube in place and to low continuous wall suction - 20 cm H2O. Draining thin serosanguineous drainage. 30 mL output in the last 8 hours, 80 mL output in the last 24 hours. No air leak present. - Cardiovascular Details: Regular rhythm and tachycardic rate. S1 and S2 present, negative for S3, gallop or murmur. Sternum is stable. Bedside telemetry showing a 2-1 atrial flutter, heart rate 114. Heart hugger is in place and she is demonstrating appropriate use. Atrial and ventricular epicardial pacemaker wires intact and rounded. Generalized +2 edema. Knee-high DANITZA hose and sequential compression devices in place to her bilateral lower extremities. Left arm PICC line in place and patent. - Gastrointestinal Gastrointestinal Comment(s): Abdomen is soft, nontender and nondistended. Active bowel sounds to all 4 abdominal quadrants. Tolerating clear liquid diet. No bowel movement since surgery. - Genitourinary Genitourinary Comment(s): Adequate urine output. Mason catheter for accurate I&O. Clear yellow urine. Patient did diurese after 40 mg of Lasix yesterday. 440 mL output in the last 8 hours. - Integumentary Integumentary Comment(s): Midline sternal incision clean dry and well approximated. Scant serosanguineous drainage to her distal incision. Dermabond dressing clean and dry. Left leg EVH site clean dry and well approximated. No drainage or redness present. Skin is warm, dry and pink. No clubbing or cyanosis. - Neurologic Neurologic: Present: CNII-XII intact - Musculoskeletal Musculoskeletal: Present: generalized weakness, strength equal bilaterally - Psychiatric Psychiatric: Present: A&O x's 3, appropriate affect, intact judgment & insight - Allied health notes Allied health notes reviewed: nursing - Labs CBC & Chem 7: 12/02/17 04:28 12/02/17 04:28 Labs: Abnormal Lab Results - Last 24 Hours (Table) 11/23/17 12/01/17 12/01/17 Range/Units 08:19 07:45 12:57 WBC (3.8-10.6) k/uL RBC (3.80-5.40) m/uL Hgb (11.4-16.0) gm/dL Hct (34.0-46.0) % RDW (11.5-15.5) % Neutrophils # (Manual) (1.3-7.7) k/uL Lymphocytes # (Manual) (1.0-4.8) k/uL Nucleated RBCs (0-0) /100 WBC Carbon Dioxide (22-30) mmol/L BUN (7-17) mg/dL Glucose (74-99) mg/dL POC Glucose (mg/dL) 103 H (75-99) mg/dL Calcium (8.4-10.2) mg/dL Magnesium (1.6-2.3) mg/dL AST (14-36) U/L Total Protein (6.3-8.2) g/dL Albumin (3.5-5.0) g/dL Crossmatch See Detail See Detail 12/02/17 12/02/17 12/02/17 Range/Units 01:07 04:28 04:28 WBC 11.7 H (3.8-10.6) k/uL RBC 2.86 L (3.80-5.40) m/uL Hgb 8.0 L (11.4-16.0) gm/dL Hct 25.1 L (34.0-46.0) % RDW 17.7 H (11.5-15.5) % Neutrophils # (Manual) 11.12 H (1.3-7.7) k/uL Lymphocytes # (Manual) 0.35 L (1.0-4.8) k/uL Nucleated RBCs 1 H (0-0) /100 WBC Carbon Dioxide 33 H (22-30) mmol/L BUN 51 H (7-17) mg/dL Glucose 113 H (74-99) mg/dL POC Glucose (mg/dL) 118 H (75-99) mg/dL Calcium 8.2 L (8.4-10.2) mg/dL Magnesium 2.6 H (1.6-2.3) mg/dL AST 65 H (14-36) U/L Total Protein 5.3 L (6.3-8.2) g/dL Albumin 2.6 L (3.5-5.0) g/dL Crossmatch 12/02/17 Range/Units 06:57 WBC (3.8-10.6) k/uL RBC (3.80-5.40) m/uL Hgb (11.4-16.0) gm/dL Hct (34.0-46.0) % RDW (11.5-15.5) % Neutrophils # (Manual) (1.3-7.7) k/uL Lymphocytes # (Manual) (1.0-4.8) k/uL Nucleated RBCs (0-0) /100 WBC Carbon Dioxide (22-30) mmol/L BUN (7-17) mg/dL Glucose (74-99) mg/dL POC Glucose (mg/dL) 114 H (75-99) mg/dL Calcium (8.4-10.2) mg/dL Magnesium (1.6-2.3) mg/dL AST (14-36) U/L Total Protein (6.3-8.2) g/dL Albumin (3.5-5.0) g/dL Crossmatch - Imaging and Cardiology Chest x-ray: report reviewed, image reviewed Assessment and Plan (1) Acute blood loss as cause of postoperative anemia Current Visit: Yes Status: Acute Code(s): D62 - ACUTE POSTHEMORRHAGIC ANEMIA SNOMED Code(s): 19736741615978770 (2) CAD (coronary artery disease) Current Visit: Yes Status: Chronic Code(s): I25.10 - ATHSCL HEART DISEASE OF FALSE PASS CORONARY ARTERY W/O ANG PCTRS SNOMED Code(s): 23792906 (3) Family history of coronary artery disease Current Visit: Yes Status: Chronic Code(s): Z82.49 - FAMILY HX OF ISCHEM HEART DIS AND OTH DIS OF THE CIRC SYS SNOMED Code(s): 686856130 (4) Hyperlipidemia Current Visit: Yes Status: Chronic Code(s): E78.5 - HYPERLIPIDEMIA, UNSPECIFIED SNOMED Code(s): 79046961 (5) Hypertension Current Visit: Yes Status: Chronic Code(s): I10 - ESSENTIAL (PRIMARY) HYPERTENSION SNOMED Code(s): 79290691 (6) Severe mitral regurgitation Current Visit: Yes Status: Chronic Code(s): I34.0 - NONRHEUMATIC MITRAL ( VALVE) INSUFFICIENCY SNOMED Code(s): 72165274 (7) Stenosis of left subclavian artery Current Visit: Yes Status: Chronic Code(s): I77.1 - STRICTURE OF ARTERY SNOMED Code(s): 109623647 (8) PAD (peripheral artery disease) Current Visit: No Status: Acute Code(s): I73.9 - PERIPHERAL VASCULAR DISEASE , UNSPECIFIED SNOMED Code(s): 995458023 (9) History of GI bleed Current Visit: No Status: Resolved Code(s): Z87.19 - PERSONAL HISTORY OF OTHER DISEASES OF THE DIGESTIVE SYSTEM SNOMED Code(s): 007043119 (10) Paroxysmal atrial fibrillation Current Visit: No Status: Resolved Code(s): I48.0 - PAROXYSMAL ATRIAL FIBRILLATION SNOMED Code(s): 716647629 (11) Elevated aspartate aminotransferase level Current Visit: Yes Status: Acute Code(s): R74.0 - NONSPEC ELEV OF LEVELS OF TRANSAMNS & LACTIC ACID DEHYDRGNSE SNOMED Code(s): 024155463 Plan: 1. Decrease Primacor drip at 0.1 mcg/kg/m then wean to off after 4 hours. 2. Continue amiodarone 200 mg by mouth twice a day for history of paroxysmal atrial fibrillation on home amiodarone. 3. Bronchodilators and steroid management per pulmonology, Dr. Garcia's recommendations. 4. GI/DVT prophylaxis. 5. We will increase metoprolol to 25 mg by mouth twice a day today. 6. Discontinue her left pleural chest tubes today. 7. Will monitor daily labs, and chest x-rays. 8. Discontinue Mason today. 9. Avoid nephrotoxic medications. 10. Encourage use of her incentive spirometry every hour while awake. 11. Continue Lipitor despite elevated AST. AST remains trending down. 12. Continue low dose aspirin. HIT assay was negative. 13. Postoperative limited 2-D echocardiogram on 11/26/2017 shows an ejection fraction of 45-50%. 14. Modified barium swallow today per speech therapy's recommendations to assess for aspiration. 15. Lasix 20 mg IV 1 now. 16. Daily PT and INRs. We will start anticoagulation, Coumadin tomorrow 2017. 17. Continue Arixtra 2.5 mg subcu daily. 18. Increase activity as tolerated, physical therapy and occupational therapy following. 19. More recommendations as patient progresses in her care. Left pleural chest tubes removed without incident. Suture secured in place. 4 x 4 dressing placed and secured with tape. Time with Patient: Greater than 30
--- NOTE | 2017-12-02 09:45 | PN ---
PROGRESS NOTE Mrs. Sadler is status post mitral valve replacement. She is doing better. Urine output is fair. She is on a small dose of Primacor. Remains in atrial flutter with controlled rate and hemoglobin has come up to 8. S1, S2 heard normally. There is a short systolic murmur. Lungs reveal improved air entry compared to yesterday. Patient is actually making an effort. She is still on BiPAP. Abdomen is soft. Lower extremities reveal diminished pulses. From a cardiac standpoint, I would not recommend any other intervention. Weaning efforts are in progress. She will probably be taken off BiPAP to see how she tolerates today. MMODL / IJN: [id number] /
--- NOTE | 2017-12-02 10:17 | XR ---
EXAMINATION TYPE: XR chest 1V portable DATE OF EXAM: 12/02/2017 COMPARISON: Prior chest x-ray 12/01/2017 HISTORY: Post cardiac surgery, chest tube TECHNIQUE: Single frontal view of the chest is obtained. FINDINGS: Left-sided chest tube remains in place, right jugular central venous sheath has been remov ed. Left-sided PICC line shows the distal tip over the confluence of the innominate veins. Patient is post median sternotomy, valve replacement, atrial appendage clipping. Patient is rotated. There is n o pneumothorax. Basilar increased density obscures the right hemidiaphragm and heart border. Heart is markedly enlarged. Left subclavian stent again noted. IMPRESSION: Probable right lower lobe atelectasis and associated effusion. Marked cardiomegaly, post procedural changes.
--- NOTE | 2017-12-02 10:34 | CDI ---
Last Revision, September 2017 Documentation Clarification Form Date: 12/02/2017 10:15:00 AM From: Chuyita ArnettNavarreteEDUARDO bashir, CCDS Admit Date: 11/25/2017 5:36:00 AM Patient Name: Maritza Sadler Visit Number: [id number] Discharge Date: ATTENTION: The Clinical Documentation Specialists (CDI) and [facility] Coding Staff appreciate your assistance in clarifying documentation. Please respond to the clarification below the line at the bottom and electronically sign. The CDI & [facility] Coding staff will review the response and follow-up if needed. Please note: Queries are made part of the Legal Health Record. If you have any questions, please contact the author of this message via ITS. Dr. Dion Back: 67 yo female, presented for elective mitral valve replacement for severe mitral regurgitation with a history of CAD & paroxysmal atrial fibrillation. Per the 11/25 OR report: "There did appear to be a rent in the soft tissue beyond the left atrial appendage but remote from any surgical sites." Per the 11/26 progress note by cardiology: "...she developed significant bleeding and there was a small tear noted in the lateral aspect of the ventricle that was sutured." Procedure performed (from OR report): "It was closed using an interrupted Prolene suture with felt pledgets. BioGlue was then added over the raw surface as was a patch of bovine pericardium. Addition of clotting agents was used to help slow down the generalized ooze." History/Risk Factors: Per the OR report, the patient's heart was fatty & friable. Treatment: Routine postoperative MVR care. Received Albumin for volume replacement, 1 unit Platelets & Cryoprecipitiate, 2 units PRBCs, total of 10 units. Vent care & adjustments, Vasopressin, prolonged ventilation time >96 hours. In order to accurately reflect this patients severity of illness, please clarify if the intraoperative diagnosis of "rent" and/or "tear" was: An expected intraoperative condition related to the surgical procedure: An unexpected intraoperative condition related to the surgical procedure: Integral to the procedure: Inherent to the procedure: Unable to determine Please continue to document in your progress notes and discharge summary in order to capture severity of illness and risk of mortality. Include clinical findings that support your diagnosis. MTDD
[2017-12-02 12:55] LABS: Glucose,Whole Blood 118 mg/dL (75-99)
--- NOTE | 2017-12-02 15:37 | P.PN ---
Subjective Progress Note Date: 12/01/17 Progress note being dictated for Dr. Lugo. Interval history: This is 67-year-old female status post CABG, mitral valve replacement, status post multiple blood products transfusions. Remains vent dependent on 40% FiO2/+5 of PEEP. Chest x-ray reporting fluid overload, improvement in volume status, aeration.Maintained on norepinephrine, Primacor, dopamine and insulin drip. Cardiac index 2.7. Telemetry atrial flutter/sinus tach. Tube feeding initiated via OG tube. Hemoglobin 7.3, Platelets decreased to 64 today, maintained on low-dose aspirin. Review systems unable to obtain as patient sedated and on mechanical ventilation. Active Medications Albuterol/Ipratropium (Duoneb 0.5 Mg-3 Mg/3 Ml Soln) 3 ml INHALATION RT-Q4H [facility] Last Admin: 11/29/17 15:17 Dose: 3 ml Albuterol/Ipratropium (Duoneb 0.5 Mg-3 Mg/3 Ml Soln) 3 ml INHALATION RT-Q2H PRN PRN Reason: Shortness Of Breath Or Wheezing Amiodarone HCl (Cordarone) 200 mg PO BID [facility] Aspirin (Aspirin) 81 mg PO DAILY [facility] Last Admin: 11/29/17 08:54 Dose: 81 mg Atorvastatin Calcium (Lipitor) 40 mg PO DAILY [facility] Last Admin: 11/29/17 08:54 Dose: 40 mg Benzocaine/Menthol (Cepacol Lozenge) 1 each MUCOUS MEM Q2H PRN PRN Reason: Sore Throat Bisacodyl (Dulcolax) 10 mg RECTAL DAILY PRN PRN Reason: Constipation Chlorhexidine Gluconate (Peridex) 15 ml MUCOUS MEM BID [facility] Last Admin: 11/29/17 08:48 Dose: 15 ml Furosemide (Lasix) 40 mg IV ONCE ONE Stop: 11/29/17 20:01 Propofol 1,000 mg/ IV Solution 100 mls @ 0 mls/hr IV .Q0M [facility]; Titrate PRN Reason: Protocol Last Admin: 11/29/17 17:54 Dose: 26.13 mcg/kg/min, 17.2 mls/hr Norepinephrine Bitartrate (Levophed-0.9% Nacl 16 Mg/250ml Pmx) 16 mg in 250 mls @ 0 mls/hr IV .Q0M [facility]; Titrate PRN Reason: Protocol Last Admin: 11/29/17 17:54 Dose: 2 mcg/min, 1.875 mls/hr Sodium Chloride (Saline 0.45%) 1,000 mls @ 30 mls/hr IV .Q24H [facility] Last Admin: 11/29/17 10:28 Dose: Not Given Milrinone Lactate/Dextrose 20 (mg/ IV Solution) 100 mls @ 6.58 mls/hr IV .[id number] [facility] PRN Reason: 0.2 MCG/KG/MIN Last Admin: 11/29/17 15:38 Dose: 0.2 mcg/kg/min, 6.58 mls/hr Insulin Aspart (Novolog) 0 unit SQ Q6HR [facility] PRN Reason: Protocol Last Admin: 11/29/17 12:36 Dose: Not Given Magnesium Hydroxide (Milk Of Magnesia) 2,400 mg PO BID PRN PRN Reason: Constipation Metoprolol Tartrate (Lopressor) 12.5 mg PO BID [facility] Last Admin: 11/29/17 08:55 Dose: 12.5 mg Miscellaneous Information (Magnesium Per Protocol) 1 each MISCELLANE DAILY PRN ; Protocol PRN Reason: Per Protocol Miscellaneous Information (Phosphorus Per Protocol) 1 each MISCELLANE DAILY PRN ; Protocol PRN Reason: Per Protocol Miscellaneous Information (Potassium Per Protocol) 1 each MISCELLANE DAILY PRN ; Protocol PRN Reason: Per Protocol Miscellaneous Information (Potassium Per Protocol) 1 each MISCELLANE DAILY PRN ; Protocol PRN Reason: Per Protocol Morphine Sulfate (Morphine Oral Dana 2mg/Ml) 6 mg PO Q2H PRN PRN Reason: Severe Pain Ondansetron HCl (Zofran) 4 mg IVP Q6HR PRN PRN Reason: Nausea And Vomiting Pantoprazole Sodium (Protonix) 40 mg IVP DAILY [facility] Last Admin: 11/29/17 08:55 Dose: 40 mg Senna/Docusate Sodium (Senokot-S) 2 each PO HS [facility] Last Admin: 11/28/17 20:41 Dose: 2 each Sodium Chloride (Saline Flush) 10 ml IV BID [facility] Last Admin: 11/29/17 08:56 Dose: 10 ml 11/30/2017 Chest x-ray reporting increased congestion, received additional Lasix. extubated this morning, currently maintained on BiPAP. Norepinephrine weaned off this morning. Maintained on Primacor, cardiac index 2.6. Received 1 dose of Lasix IV push. Renal function improving. Hemoglobin 7, platelets increased to 74. Atrial flutter per telemetry. Review systems unable to obtain as patient BiPAP dependent. Active Medications Generic Name Dose Route Start Last Admin Trade Name Freq PRN Reason Stop Dose Admin Albuterol/Ipratropium 3 ml 11/25/17 20:00 11/30/17 15:23 Duoneb 0.5 Mg-3 Mg/3 Ml Soln INHALATION 3 ml RT-Q4H [facility] Administration Albuterol/Ipratropium 3 ml 11/26/17 17:53 Duoneb 0.5 Mg-3 Mg/3 Ml Soln INHALATION RT-Q2H PRN Shortness Of Breath Or Wheezing Amiodarone HCl 200 mg 11/29/17 21:00 11/30/17 08:14 Cordarone PO 200 mg BID [facility] Administration Aspirin 81 mg 11/26/17 10:15 11/30/17 08:15 Aspirin PO 81 mg DAILY [facility] Administration Atorvastatin Calcium 40 mg 11/26/17 09:00 11/30/17 08:14 Lipitor PO 40 mg DAILY [facility] Administration Benzocaine/Menthol 1 each 11/25/17 19:03 Cepacol Lozenge MUCOUS MEM Q2H PRN Sore Throat Bisacodyl 10 mg 11/26/17 17:52 Dulcolax RECTAL DAILY PRN Constipation Fondaparinux 2.5 mg 11/30/17 11:30 11/30/17 13:23 Arixtra SQ 2.5 mg DAILY [facility] Administration Norepinephrine Bitartrate 16 mg in 250 mls @ 0 mls/hr 11/26/17 04:15 11:58 Levophed-0.9% Nacl 16 Mg/250ml Pmx IV 0 mcg/min .Q0M [facility] 0 mls/hr Protocol Titration Titrate Sodium Chloride 1,000 mls @ 10 mls/hr 11/26/17 10:15 11/30/17 12:51 Saline 0.45% IV Not Given .Q24H [facility] Milrinone Lactate/Dextrose 20 100 mls @ 6.58 mls/hr 11/29/17 15:00 11/30/17 08:16 mg/ IV Solution IV 0.2 mcg/kg/min .[id number] [facility] 6.58 mls/hr 0.2 MCG/KG/MIN Infusion Insulin Aspart 0 unit 11/29/17 12:00 11/30/17 12:50 Novolog SQ Not Given Q6HR [facility] Protocol Magnesium Hydroxide 2,400 mg 11/26/17 17:53 Milk Of Magnesia PO BID PRN Constipation Metoprolol Tartrate 12.5 mg 11/26/17 09:00 11/30/17 08:15 Lopressor PO 12.5 mg BID [facility] Administration Miscellaneous Information 1 each 11/25/17 19:03 Magnesium Per Protocol MISCELLANE DAILY PRN Per Protocol Protocol Miscellaneous Information 1 each 11/25/17 19:03 Phosphorus Per Protocol MISCELLANE DAILY PRN Per Protocol Protocol Miscellaneous Information 1 each 11/25/17 19:03 Potassium Per Protocol MISCELLANE DAILY PRN Per Protocol Protocol Miscellaneous Information 1 each 11/29/17 12:01 Potassium Per Protocol MISCELLANE DAILY PRN Per Protocol Protocol Morphine Sulfate 6 mg 11/29/17 13:31 Morphine Oral Dana 2mg/Ml PO Q2H PRN Severe Pain Ondansetron HCl 4 mg 11/25/17 19:03 Zofran IVP Q6HR PRN Nausea And Vomiting Pantoprazole Sodium 40 mg 11/26/17 09:00 11/30/17 08:15 Protonix IVP 40 mg DAILY [facility] Administration Senna/Docusate Sodium 2 each 11/26/17 21:00 11/29/17 20:40 Senokot-S PO 2 each HS [facility] Administration Sodium Chloride 10 ml 11/25/17 21:00 11/30/17 08:15 Saline Flush IV 10 ml BID [facility] Administration 12/01/2017 Breathing improving, weaned off of BiPAP and down to 6 L high flow. Wheezing resolved. Chest x-ray reports improvement. Staff reports patient appeared to be choking on pills last night, speech therapy consulted. Receiving one unit of packed RBCs for hemoglobin of 6.7. Mediastinal chest tubes discontinued, left pleural chest tube remains. Maintained on Primacor. Telemetry atrial flutter. Review of systems: CONSTITUTIONAL: No fever, no malaise HEENT: No recent visual problems or hearing problems. Denied any sore throat. CARDIOVASCULAR: No chest pain, no palpitations, no syncope. PULMONARY: Improving shortness of breath, no cough, no hemoptysis. GASTROINTESTINAL: No diarrhea, no nausea, no vomiting, no abdominal pain. Normoactive bowel sounds. NEUROLOGICAL: No headaches, diffuse weakness, no numbness. HEMATOLOGICAL: Denies any bleeding or petechiae. GENITOURINARY: Denies any burning micturition, frequency, or urgency. ENDOCRINE: Denies any polyuria or polydipsia. PSYCHIATRIC: No anxiety, no depression Active Medications Hydrocodone Bitart/Acetaminophen ([place] 5-325) 1 each PO Q4HR PRN PRN Reason: MILD TO MODERATE Pain Last Admin: 12/01/17 22:44 Dose: 1 each Hydrocodone Bitart/Acetaminophen ([place] 5-325) 2 each PO Q4HR PRN PRN Reason: MODERATE TO SEVERE Pain Albuterol/Ipratropium (Duoneb 0.5 Mg-3 Mg/3 Ml Soln) 3 ml INHALATION RT-Q4H [facility] Last Admin: 12/02/17 15:06 Dose: 3 ml Albuterol/Ipratropium (Duoneb 0.5 Mg-3 Mg/3 Ml Soln) 3 ml INHALATION RT-Q2H PRN PRN Reason: Shortness Of Breath Or Wheezing Last Admin: 12/01/17 18:09 Dose: 3 ml Amiodarone HCl (Cordarone) 200 mg PO BID [facility] Last Admin: 12/02/17 08:10 Dose: 200 mg Aspirin (Aspirin) 81 mg PO DAILY [facility] Last Admin: 12/02/17 08:10 Dose: 81 mg Atorvastatin Calcium (Lipitor) 40 mg PO DAILY [facility] Last Admin: 12/02/17 08:10 Dose: 40 mg Benzocaine/Menthol (Cepacol Lozenge) 1 each MUCOUS MEM Q2H PRN PRN Reason: Sore Throat Bisacodyl (Dulcolax) 10 mg RECTAL DAILY PRN PRN Reason: Constipation Budesonide (Pulmicort) 1 mg INHALATION RT-BID [facility] Last Admin: 12/02/17 07:19 Dose: 1 mg Fondaparinux (Arixtra) 2.5 mg SQ DAILY [facility] Last Admin: 12/02/17 08:10 Dose: 2.5 mg Formoterol Fumarate (Perforomist) 20 mcg INHALATION RT-BID [facility] Last Admin: 12/02/17 07:36 Dose: 20 mcg Norepinephrine Bitartrate (Levophed-0.9% Nacl 16 Mg/250ml Pmx) 16 mg in 250 mls @ 0 mls/hr IV .Q0M [facility]; Titrate PRN Reason: Protocol Last Titration: 11/30/17 11:58 Dose: 0 mcg/min, 0 mls/hr Sodium Chloride (Saline 0.45%) 1,000 mls @ 10 mls/hr IV .Q24H [facility] Last Admin: 12/01/17 14:04 Dose: 10 mls/hr Milrinone Lactate/Dextrose 20 (mg/ IV Solution) 100 mls @ 6.58 mls/hr IV .[id number] [facility] PRN Reason: 0.2 MCG/KG/MIN Last Admin: 12/02/17 08:57 Dose: 0.2 mcg/kg/min, 6.58 mls/hr Insulin Aspart (Novolog) 0 unit SQ Q6HR [facility] PRN Reason: Protocol Last Admin: 12/02/17 12:53 Dose: Not Given Magnesium Hydroxide (Milk Of Magnesia) 2,400 mg PO BID PRN PRN Reason: Constipation Methylprednisolone Sodium Succinate (Solu-Medrol) 30 mg IV Q8HR [facility] Last Admin: 12/02/17 08:10 Dose: 30 mg Metoprolol Tartrate (Lopressor) 25 mg PO BID [facility] Last Admin: 12/02/17 08:59 Dose: 25 mg Miscellaneous Information (Magnesium Per Protocol) 1 each MISCELLANE DAILY PRN ; Protocol PRN Reason: Per Protocol Miscellaneous Information (Phosphorus Per Protocol) 1 each MISCELLANE DAILY PRN ; Protocol PRN Reason: Per Protocol Miscellaneous Information (Potassium Per Protocol) 1 each MISCELLANE DAILY PRN ; Protocol PRN Reason: Per Protocol Miscellaneous Information (Potassium Per Protocol) 1 each MISCELLANE DAILY PRN ; Protocol PRN Reason: Per Protocol Ondansetron HCl (Zofran) 4 mg IVP Q6HR PRN PRN Reason: Nausea And Vomiting Pantoprazole Sodium (Protonix) 40 mg IVP DAILY [facility] Last Admin: 12/02/17 08:10 Dose: 40 mg Senna/Docusate Sodium (Senokot-S) 2 each PO HS [facility] Last Admin: 12/01/17 21:55 Dose: 2 each Sodium Chloride (Saline Flush) 10 ml IV BID [facility] Last Admin: 12/02/17 12:51 Dose: 10 ml Objective - Vital Signs Vital signs: Vital Signs Temp 98.1 F 12/01/17 14:15 Pulse 116 H 12/01/17 15:50 Resp 39 H 12/01/17 14:15 BP 98/52 12/01/17 14:15 Pulse Ox 99 12/01/17 15:42 Intake & Output 11/30/17 12/01/17 12/01/17 18:59 06:59 18:59 Intake Total 1004.623 309.707 628.5 Output Total 1440 772 230 Balance -435.377 -462.293 398.5 Weight 109.9 kg 105.4 kg Intake: IV 232 218.7 93.5 CO/CI 20 Milrinone-D5w Pmx 20 mg 62.7 28.5 In Dextrose/Water 1 100ml .bag @ 0.2 MCG/KG/MIN 6. 58 mls/hr IV .[id number] [facility] Rx#:[id number] Pressure Bag 72 36 15 Sodium Chloride 0.45% 1, 140 120 50 000 ml @ 10 mls/hr IV . Q24H [facility] Rx#:[id number] Intake, IV Titration 87.623 91.007 100 Amount Milrinone-D5w Pmx 20 mg 8.993 91.007 100 In Dextrose/Water 1 100ml .bag @ 0.2 MCG/KG/MIN 6. 58 mls/hr IV .[id number] [facility] Rx#:[id number] Norepinephrin 16 mg-0.9% 36.110 Ns Pmx 16 mg In 250 ml @ Titrate IV .Q0M [facility] Rx#: [id number] Propofol 1,000 mg In 42.520 Empty Bag 1 bag @ Titrate IV .Q0M [facility] Rx#: [id number] Tube Feeding 300 Blood Product 310 435 Rc As-1 Unit 310 [id number] Rc As-1 Unit 310 [id number] Other 75 Output: Chest Tube Drainage 90 140 20 BL Mediastinal 20 Left Pleural 70 140 20 Urine 1350 632 210 Other: Voiding Method Indwelling Catheter Indwelling Catheter ABP, PAP, CO, CI - Last Documented Arterial Blood Pressure 110/60 Pulmonary Artery Pressure 38/33 Cardiac Output 5.8 Cardiac Index 2.9 - Exam PHYSICAL EXAM: VITAL SIGNS: As above GENERAL: Sitting up in bed, respiratory effort mildly increased HEENT: Conjunctivae normal. eyes normal. NECK: No JVD. No thyroid enlargement. No LNs CARDIOVASCULAR: S1, S2 muffled. No murmur RESPIRATION: Breath sounds diminished in the bases. Scattered rhonchi , no wheezes wheezes. Occasional fine Fine scattered crackles. Left pleural chest tube present. ABDOMEN: Soft, nontender . No guarding. no masses palpable.Bowel sounds heard. LEGS: Positive edema PSYCHIATRY:/NERVOUS SYSTEM: Alert and oriented 3, moves all 4 extremities no focal deficits, Skin: no ulcer no rash - Labs CBC & Chem 7: 12/02/17 04:28 12/02/17 04:28 Labs: Abnormal Lab Results - Last 24 Hours (Table) 11/23/17 12/01/17 12/01/17 Range/Units 08:19 00:25 04:12 WBC 12.2 H (3.8-10.6) k/uL RBC 2.55 L (3.80-5.40) m/uL Hgb 6.7 L* (11.4-16.0) gm/dL Hct 22.7 L (34.0-46.0) % MCHC 29.6 L (31.0-37.0) g/dL RDW 18.2 H (11.5-15.5) % Plt Count 103 L (150-450) k/uL Carbon Dioxide (22-30) mmol/L BUN (7-17) mg/dL Glucose (74-99) mg/dL POC Glucose (mg/dL) 126 H (75-99) mg/dL Calcium (8.4-10.2) mg/dL Magnesium (1.6-2.3) mg/dL AST (14-36) U/L Total Protein (6.3-8.2) g/dL Albumin (3.5-5.0) g/dL Crossmatch See Detail 12/01/17 12/01/17 12/01/17 Range/Units 04:12 06:42 07:45 WBC (3.8-10.6) k/uL RBC (3.80-5.40) m/uL Hgb (11.4-16.0) gm/dL Hct (34.0-46.0) % MCHC (31.0-37.0) g/dL RDW (11.5-15.5) % Plt Count (150-450) k/uL Carbon Dioxide 32 H (22-30) mmol/L BUN 51 H (7-17) mg/dL Glucose 111 H (74-99) mg/dL POC Glucose (mg/dL) 109 H (75-99) mg/dL Calcium 8.0 L (8.4-10.2) mg/dL Magnesium 2.6 H (1.6-2.3) mg/dL AST 79 H (14-36) U/L Total Protein 5.2 L (6.3-8.2) g/dL Albumin 2.6 L (3.5-5.0) g/dL Crossmatch See Detail 12/01/17 Range/Units 12:57 WBC (3.8-10.6) k/uL RBC (3.80-5.40) m/uL Hgb (11.4-16.0) gm/dL Hct (34.0-46.0) % MCHC (31.0-37.0) g/dL RDW (11.5-15.5) % Plt Count (150-450) k/uL Carbon Dioxide (22-30) mmol/L BUN (7-17) mg/dL Glucose (74-99) mg/dL POC Glucose (mg/dL) 103 H (75-99) mg/dL Calcium (8.4-10.2) mg/dL Magnesium (1.6-2.3) mg/dL AST (14-36) U/L Total Protein (6.3-8.2) g/dL Albumin (3.5-5.0) g/dL Crossmatch Assessment and Plan Assessment: 1. Status post CABG with mitral valve replacement 2. Acute blood loss anemia with massive blood transfusions postoperatively, in a patient with history of GI bleed 3. Hypertension 4. Left subclavian stenosis 5. Proximal atrial fibrillation 6. Postoperative Hypoxic respiratory failure, remains vent dependent 7. Obesity, BMI 41.6 8. S/P PICC line placement Plan: Continue on current medication regime ,monitoring and symptomatic treatment. Aggressive pulmonary toileting. PICC line placed. Close monitoring of hemoglobin and platelets. Further recommendations to follow. GI and DVT prophylaxis in place. The impression and plan of care has been dictated as directed. : I performed a history and examination of this patient, discussed the same with the dictator. I agree with the dictator's note ,documented as a scribe. Any additional findings or plans will be noted.
[2017-12-02] MEDS: SODIUM CHLORIDE 0.45% 1,000 ML IV SCH (15:41)
--- NOTE | 2017-12-02 16:14 | P.PN ---
Subjective Progress Note Date: 12/02/17 Progress note being dictated for Dr. Lugo. Interval history: This is 67-year-old female status post CABG, mitral valve replacement, status post multiple blood products transfusions. Remains vent dependent on 40% FiO2/+5 of PEEP. Chest x-ray reporting fluid overload, improvement in volume status, aeration.Maintained on norepinephrine, Primacor, dopamine and insulin drip. Cardiac index 2.7. Telemetry atrial flutter/sinus tach. Tube feeding initiated via OG tube. Hemoglobin 7.3, Platelets decreased to 64 today, maintained on low-dose aspirin. Review systems unable to obtain as patient sedated and on mechanical ventilation. Active Medications Albuterol/Ipratropium (Duoneb 0.5 Mg-3 Mg/3 Ml Soln) 3 ml INHALATION RT-Q4H [facility] Last Admin: 11/29/17 15:17 Dose: 3 ml Albuterol/Ipratropium (Duoneb 0.5 Mg-3 Mg/3 Ml Soln) 3 ml INHALATION RT-Q2H PRN PRN Reason: Shortness Of Breath Or Wheezing Amiodarone HCl (Cordarone) 200 mg PO BID [facility] Aspirin (Aspirin) 81 mg PO DAILY [facility] Last Admin: 11/29/17 08:54 Dose: 81 mg Atorvastatin Calcium (Lipitor) 40 mg PO DAILY [facility] Last Admin: 11/29/17 08:54 Dose: 40 mg Benzocaine/Menthol (Cepacol Lozenge) 1 each MUCOUS MEM Q2H PRN PRN Reason: Sore Throat Bisacodyl (Dulcolax) 10 mg RECTAL DAILY PRN PRN Reason: Constipation Chlorhexidine Gluconate (Peridex) 15 ml MUCOUS MEM BID [facility] Last Admin: 11/29/17 08:48 Dose: 15 ml Furosemide (Lasix) 40 mg IV ONCE ONE Stop: 11/29/17 20:01 Propofol 1,000 mg/ IV Solution 100 mls @ 0 mls/hr IV .Q0M [facility]; Titrate PRN Reason: Protocol Last Admin: 11/29/17 17:54 Dose: 26.13 mcg/kg/min, 17.2 mls/hr Norepinephrine Bitartrate (Levophed-0.9% Nacl 16 Mg/250ml Pmx) 16 mg in 250 mls @ 0 mls/hr IV .Q0M [facility]; Titrate PRN Reason: Protocol Last Admin: 11/29/17 17:54 Dose: 2 mcg/min, 1.875 mls/hr Sodium Chloride (Saline 0.45%) 1,000 mls @ 30 mls/hr IV .Q24H [facility] Last Admin: 11/29/17 10:28 Dose: Not Given Milrinone Lactate/Dextrose 20 (mg/ IV Solution) 100 mls @ 6.58 mls/hr IV .[id number] [facility] PRN Reason: 0.2 MCG/KG/MIN Last Admin: 11/29/17 15:38 Dose: 0.2 mcg/kg/min, 6.58 mls/hr Insulin Aspart (Novolog) 0 unit SQ Q6HR [facility] PRN Reason: Protocol Last Admin: 11/29/17 12:36 Dose: Not Given Magnesium Hydroxide (Milk Of Magnesia) 2,400 mg PO BID PRN PRN Reason: Constipation Metoprolol Tartrate (Lopressor) 12.5 mg PO BID [facility] Last Admin: 11/29/17 08:55 Dose: 12.5 mg Miscellaneous Information (Magnesium Per Protocol) 1 each MISCELLANE DAILY PRN ; Protocol PRN Reason: Per Protocol Miscellaneous Information (Phosphorus Per Protocol) 1 each MISCELLANE DAILY PRN ; Protocol PRN Reason: Per Protocol Miscellaneous Information (Potassium Per Protocol) 1 each MISCELLANE DAILY PRN ; Protocol PRN Reason: Per Protocol Miscellaneous Information (Potassium Per Protocol) 1 each MISCELLANE DAILY PRN ; Protocol PRN Reason: Per Protocol Morphine Sulfate (Morphine Oral Dana 2mg/Ml) 6 mg PO Q2H PRN PRN Reason: Severe Pain Ondansetron HCl (Zofran) 4 mg IVP Q6HR PRN PRN Reason: Nausea And Vomiting Pantoprazole Sodium (Protonix) 40 mg IVP DAILY [facility] Last Admin: 11/29/17 08:55 Dose: 40 mg Senna/Docusate Sodium (Senokot-S) 2 each PO HS [facility] Last Admin: 11/28/17 20:41 Dose: 2 each Sodium Chloride (Saline Flush) 10 ml IV BID [facility] Last Admin: 11/29/17 08:56 Dose: 10 ml 11/30/2017 Chest x-ray reporting increased congestion, received additional Lasix. extubated this morning, currently maintained on BiPAP. Norepinephrine weaned off this morning. Maintained on Primacor, cardiac index 2.6. Received 1 dose of Lasix IV push. Renal function improving. Hemoglobin 7, platelets increased to 74. Atrial flutter per telemetry. Review systems unable to obtain as patient BiPAP dependent. Active Medications Generic Name Dose Route Start Last Admin Trade Name Freq PRN Reason Stop Dose Admin Albuterol/Ipratropium 3 ml 11/25/17 20:00 11/30/17 15:23 Duoneb 0.5 Mg-3 Mg/3 Ml Soln INHALATION 3 ml RT-Q4H [facility] Administration Albuterol/Ipratropium 3 ml 11/26/17 17:53 Duoneb 0.5 Mg-3 Mg/3 Ml Soln INHALATION RT-Q2H PRN Shortness Of Breath Or Wheezing Amiodarone HCl 200 mg 11/29/17 21:00 11/30/17 08:14 Cordarone PO 200 mg BID [facility] Administration Aspirin 81 mg 11/26/17 10:15 11/30/17 08:15 Aspirin PO 81 mg DAILY [facility] Administration Atorvastatin Calcium 40 mg 11/26/17 09:00 11/30/17 08:14 Lipitor PO 40 mg DAILY [facility] Administration Benzocaine/Menthol 1 each 11/25/17 19:03 Cepacol Lozenge MUCOUS MEM Q2H PRN Sore Throat Bisacodyl 10 mg 11/26/17 17:52 Dulcolax RECTAL DAILY PRN Constipation Fondaparinux 2.5 mg 11/30/17 11:30 11/30/17 13:23 Arixtra SQ 2.5 mg DAILY [facility] Administration Norepinephrine Bitartrate 16 mg in 250 mls @ 0 mls/hr 11/26/17 04:15 11:58 Levophed-0.9% Nacl 16 Mg/250ml Pmx IV 0 mcg/min .Q0M [facility] 0 mls/hr Protocol Titration Titrate Sodium Chloride 1,000 mls @ 10 mls/hr 11/26/17 10:15 11/30/17 12:51 Saline 0.45% IV Not Given .Q24H [facility] Milrinone Lactate/Dextrose 20 100 mls @ 6.58 mls/hr 11/29/17 15:00 11/30/17 08:16 mg/ IV Solution IV 0.2 mcg/kg/min .[id number] [facility] 6.58 mls/hr 0.2 MCG/KG/MIN Infusion Insulin Aspart 0 unit 11/29/17 12:00 11/30/17 12:50 Novolog SQ Not Given Q6HR [facility] Protocol Magnesium Hydroxide 2,400 mg 11/26/17 17:53 Milk Of Magnesia PO BID PRN Constipation Metoprolol Tartrate 12.5 mg 11/26/17 09:00 11/30/17 08:15 Lopressor PO 12.5 mg BID [facility] Administration Miscellaneous Information 1 each 11/25/17 19:03 Magnesium Per Protocol MISCELLANE DAILY PRN Per Protocol Protocol Miscellaneous Information 1 each 11/25/17 19:03 Phosphorus Per Protocol MISCELLANE DAILY PRN Per Protocol Protocol Miscellaneous Information 1 each 11/25/17 19:03 Potassium Per Protocol MISCELLANE DAILY PRN Per Protocol Protocol Miscellaneous Information 1 each 11/29/17 12:01 Potassium Per Protocol MISCELLANE DAILY PRN Per Protocol Protocol Morphine Sulfate 6 mg 11/29/17 13:31 Morphine Oral Dana 2mg/Ml PO Q2H PRN Severe Pain Ondansetron HCl 4 mg 11/25/17 19:03 Zofran IVP Q6HR PRN Nausea And Vomiting Pantoprazole Sodium 40 mg 11/26/17 09:00 11/30/17 08:15 Protonix IVP 40 mg DAILY [facility] Administration Senna/Docusate Sodium 2 each 11/26/17 21:00 11/29/17 20:40 Senokot-S PO 2 each HS [facility] Administration Sodium Chloride 10 ml 11/25/17 21:00 11/30/17 08:15 Saline Flush IV 10 ml BID [facility] Administration 12/01/2017 Breathing improving, weaned off of BiPAP and down to 6 L high flow. Wheezing resolved. Chest x-ray reports improvement. Staff reports patient appeared to be choking on pills last night, speech therapy consulted. Receiving one unit of packed RBCs for hemoglobin of 6.7. Mediastinal chest tubes discontinued, left pleural chest tube remains. Maintained on Primacor. Telemetry atrial flutter. Review of systems: CONSTITUTIONAL: No fever, no malaise HEENT: No recent visual problems or hearing problems. Denied any sore throat. CARDIOVASCULAR: No chest pain, no palpitations, no syncope. PULMONARY: Improving shortness of breath, no cough, no hemoptysis. GASTROINTESTINAL: No diarrhea, no nausea, no vomiting, no abdominal pain. Normoactive bowel sounds. NEUROLOGICAL: No headaches, diffuse weakness, no numbness. HEMATOLOGICAL: Denies any bleeding or petechiae. GENITOURINARY: Denies any burning micturition, frequency, or urgency. ENDOCRINE: Denies any polyuria or polydipsia. PSYCHIATRIC: No anxiety, no depression Active Medications Hydrocodone Bitart/Acetaminophen (Martha 5-325) 1 each PO Q4HR PRN PRN Reason: MILD TO MODERATE Pain Last Admin: 12/01/17 22:44 Dose: 1 each Hydrocodone Bitart/Acetaminophen (Martha 5-325) 2 each PO Q4HR PRN PRN Reason: MODERATE TO SEVERE Pain Albuterol/Ipratropium (Duoneb 0.5 Mg-3 Mg/3 Ml Soln) 3 ml INHALATION RT-Q4H [facility] Last Admin: 12/02/17 15:06 Dose: 3 ml Albuterol/Ipratropium (Duoneb 0.5 Mg-3 Mg/3 Ml Soln) 3 ml INHALATION RT-Q2H PRN PRN Reason: Shortness Of Breath Or Wheezing Last Admin: 12/01/17 18:09 Dose: 3 ml Amiodarone HCl (Cordarone) 200 mg PO BID [facility] Last Admin: 12/02/17 08:10 Dose: 200 mg Aspirin (Aspirin) 81 mg PO DAILY [facility] Last Admin: 12/02/17 08:10 Dose: 81 mg Atorvastatin Calcium (Lipitor) 40 mg PO DAILY [facility] Last Admin: 12/02/17 08:10 Dose: 40 mg Benzocaine/Menthol (Cepacol Lozenge) 1 each MUCOUS MEM Q2H PRN PRN Reason: Sore Throat Bisacodyl (Dulcolax) 10 mg RECTAL DAILY PRN PRN Reason: Constipation Budesonide (Pulmicort) 1 mg INHALATION RT-BID [facility] Last Admin: 12/02/17 07:19 Dose: 1 mg Fondaparinux (Arixtra) 2.5 mg SQ DAILY [facility] Last Admin: 12/02/17 08:10 Dose: 2.5 mg Formoterol Fumarate (Perforomist) 20 mcg INHALATION RT-BID [facility] Last Admin: 12/02/17 07:36 Dose: 20 mcg Norepinephrine Bitartrate (Levophed-0.9% Nacl 16 Mg/250ml Pmx) 16 mg in 250 mls @ 0 mls/hr IV .Q0M [facility]; Titrate PRN Reason: Protocol Last Titration: 11/30/17 11:58 Dose: 0 mcg/min, 0 mls/hr Sodium Chloride (Saline 0.45%) 1,000 mls @ 10 mls/hr IV .Q24H [facility] Last Admin: 12/01/17 14:04 Dose: 10 mls/hr Milrinone Lactate/Dextrose 20 (mg/ IV Solution) 100 mls @ 6.58 mls/hr IV .[id number] [facility] PRN Reason: 0.2 MCG/KG/MIN Last Admin: 12/02/17 08:57 Dose: 0.2 mcg/kg/min, 6.58 mls/hr Insulin Aspart (Novolog) 0 unit SQ Q6HR [facility] PRN Reason: Protocol Last Admin: 12/02/17 12:53 Dose: Not Given Magnesium Hydroxide (Milk Of Magnesia) 2,400 mg PO BID PRN PRN Reason: Constipation Methylprednisolone Sodium Succinate (Solu-Medrol) 30 mg IV Q8HR [facility] Last Admin: 12/02/17 08:10 Dose: 30 mg Metoprolol Tartrate (Lopressor) 25 mg PO BID [facility] Last Admin: 12/02/17 08:59 Dose: 25 mg Miscellaneous Information (Magnesium Per Protocol) 1 each MISCELLANE DAILY PRN ; Protocol PRN Reason: Per Protocol Miscellaneous Information (Phosphorus Per Protocol) 1 each MISCELLANE DAILY PRN ; Protocol PRN Reason: Per Protocol Miscellaneous Information (Potassium Per Protocol) 1 each MISCELLANE DAILY PRN ; Protocol PRN Reason: Per Protocol Miscellaneous Information (Potassium Per Protocol) 1 each MISCELLANE DAILY PRN ; Protocol PRN Reason: Per Protocol Ondansetron HCl (Zofran) 4 mg IVP Q6HR PRN PRN Reason: Nausea And Vomiting Pantoprazole Sodium (Protonix) 40 mg IVP DAILY [facility] Last Admin: 12/02/17 08:10 Dose: 40 mg Senna/Docusate Sodium (Senokot-S) 2 each PO HS [facility] Last Admin: 12/01/17 21:55 Dose: 2 each Sodium Chloride (Saline Flush) 10 ml IV BID [facility] Last Admin: 12/02/17 12:51 Dose: 10 ml 12/02/17 Much more alert today. Oxygen weaned further down to 5 L nasal cannula, maintaining O2 sats in the high 90s. Pleural chest tube discontinued. Chest x- ray reporting probable right lower lobe atelectasis/effusion. Underwent modified barium swallow, with recommendations of regular diet, thin liquids, chin tuck, no straw, small bites/sepsis/sips; no impairment with exception of mild transient penetration with thin liquids which patient independently cleared. Yesterday receive 1 unit of packed RBCs with current hemoglobin 8. Weaning of Primacor in progress. 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 Review of systems: CONSTITUTIONAL: No fever, no malaise, no fatigue. HEENT: No recent visual problems or hearing problems. Denied any sore throat. CARDIOVASCULAR: No chest pain, no palpitations, no syncope. PULMONARY: Minimal shortness of breath, no cough, no hemoptysis. GASTROINTESTINAL: No diarrhea, no nausea, no vomiting, no abdominal pain. Normoactive bowel sounds. NEUROLOGICAL: No headaches, no weakness, no numbness. HEMATOLOGICAL: Denies any bleeding or petechiae. GENITOURINARY: Denies any burning micturition, frequency, or urgency. MUSCULOSKELETAL/RHEUMATOLOGICAL: Denies any joint pain, swelling, or any muscle pain. ENDOCRINE: Denies any polyuria or polydipsia. PSYCHIATRIC: No anxiety, no depression The rest of the 14 point review of systems is negative Active Medications Generic Name Dose Route Start Last Admin Trade Name Freq PRN Reason Stop Dose Admin Hydrocodone Bitart/Acetaminophen 1 each 12/01/17 12:20 12/01/17 22:44 Martha 5-325 PO 1 each Q4HR PRN Administration MILD TO MODERATE Pain Hydrocodone Bitart/Acetaminophen 2 each 12/01/17 12:20 Martha 5-325 PO Q4HR PRN MODERATE TO SEVERE Pain Albuterol/Ipratropium 3 ml 11/25/17 20:00 12/02/17 15:06 Duoneb 0.5 Mg-3 Mg/3 Ml Soln INHALATION 3 ml RT-Q4H [facility] Administration Albuterol/Ipratropium 3 ml 11/26/17 17:53 12/01/17 18:09 Duoneb 0.5 Mg-3 Mg/3 Ml Soln INHALATION 3 ml RT-Q2H PRN Administration Shortness Of Breath Or Wheezing Amiodarone HCl 200 mg 11/29/17 21:00 12/02/17 08:10 Cordarone PO 200 mg BID [facility] Administration Aspirin 81 mg 11/26/17 10:15 12/02/17 08:10 Aspirin PO 81 mg DAILY [facility] Administration Atorvastatin Calcium 40 mg 11/26/17 09:00 12/02/17 08:10 Lipitor PO 40 mg DAILY [facility] Administration Benzocaine/Menthol 1 each 11/25/17 19:03 Cepacol Lozenge MUCOUS MEM Q2H PRN Sore Throat Bisacodyl 10 mg 11/26/17 17:52 Dulcolax RECTAL DAILY PRN Constipation Budesonide 1 mg 12/01/17 20:00 12/02/17 07:19 Pulmicort INHALATION 1 mg RT-BID [facility] Administration Fondaparinux 2.5 mg 11/30/17 11:30 12/02/17 08:10 Arixtra SQ 2.5 mg DAILY [facility] Administration Formoterol Fumarate 20 mcg 12/01/17 20:00 12/02/17 07:36 Perforomist INHALATION 20 mcg RT-BID [facility] Administration Norepinephrine Bitartrate 16 mg in 250 mls @ 0 mls/hr 11/26/17 04:15 11:58 Levophed-0.9% Nacl 16 Mg/250ml Pmx IV 0 mcg/min .Q0M [facility] 0 mls/hr Protocol Titration Titrate Sodium Chloride 1,000 mls @ 10 mls/hr 11/26/17 10:15 12/02/17 15:41 Saline 0.45% IV Not Given .Q24H [facility] Milrinone Lactate/Dextrose 20 100 mls @ 6.58 mls/hr 11/29/17 15:00 12/02/17 08:57 mg/ IV Solution IV 0.2 mcg/kg/min .[id number] [facility] 6.58 mls/hr 0.2 MCG/KG/MIN Administration Insulin Aspart 0 unit 11/29/17 12:00 12/02/17 12:53 Novolog SQ Not Given Q6HR [facility] Protocol Magnesium Hydroxide 2,400 mg 11/26/17 17:53 Milk Of Magnesia PO BID PRN Constipation Methylprednisolone Sodium Succinate 30 mg 12/01/17 16:00 12/02/17 08:10 Solu-Medrol IV 30 mg Q8HR [facility] Administration Metoprolol Tartrate 25 mg 12/02/17 09:00 12/02/17 08:59 Lopressor PO 25 mg BID [facility] Administration Miscellaneous Information 1 each 11/25/17 19:03 Magnesium Per Protocol MISCELLANE DAILY PRN Per Protocol Protocol Miscellaneous Information 1 each 11/25/17 19:03 Phosphorus Per Protocol MISCELLANE DAILY PRN Per Protocol Protocol Miscellaneous Information 1 each 11/25/17 19:03 Potassium Per Protocol MISCELLANE DAILY PRN Per Protocol Protocol Miscellaneous Information 1 each 11/29/17 12:01 Potassium Per Protocol MISCELLANE DAILY PRN Per Protocol Protocol Ondansetron HCl 4 mg 11/25/17 19:03 Zofran IVP Q6HR PRN Nausea And Vomiting Pantoprazole Sodium 40 mg 11/26/17 09:00 12/02/17 08:10 Protonix IVP 40 mg DAILY [facility] Administration Senna/Docusate Sodium 2 each 11/26/17 21:00 12/01/17 21:55 Senokot-S PO 2 each HS [facility] Administration Sodium Chloride 10 ml 11/25/17 21:00 12/02/17 12:51 Saline Flush IV 10 ml BID [facility] Administration Objective - Vital Signs Vital signs: Vital Signs Temp 99.1 F 12/02/17 12:00 Pulse 116 H 12/02/17 15:16 Resp 18 12/02/17 15:16 BP 108/60 12/02/17 14:00 Pulse Ox 98 12/02/17 14:00 Intake & Output 12/01/17 12/02/17 12/02/17 18:59 06:59 18:59 Intake Total 942.9 225.7 70 Output Total 1077 765 740 Balance -134.1 -539.3 -670 Weight 105 kg Intake: IV 183.0 120 70 Milrinone-D5w Pmx 20 mg 28.5 In Dextrose/Water 1 100ml .bag @ 0.2 MCG/KG/MIN 6. 58 mls/hr IV .[id number] [facility] Rx#:[id number] Pressure Bag 34.5 Sodium Chloride 0.45% 1, 120 120 70 000 ml @ 10 mls/hr IV . Q24H [facility] Rx#:[id number] Intake, IV Titration 139.9 105.7 Amount Milrinone-D5w Pmx 20 mg 139.9 105.7 In Dextrose/Water 1 100ml .bag @ 0.2 MCG/KG/MIN 6. 58 mls/hr IV .[id number] [facility] Rx#:[id number] Blood Product 620 Rc As-1 Unit 310 [id number] Output: Chest Tube Drainage 60 50 0 Left Pleural 60 50 0 Urine 1017 715 740 Other: Voiding Method Indwelling Catheter Indwelling Catheter Indwelling Catheter # Voids 1 # Bowel Movements 1 ABP, PAP, CO, CI - Last Documented Arterial Blood Pressure 110/60 Pulmonary Artery Pressure 38/33 Cardiac Output 5.8 Cardiac Index 2.9 - Exam PHYSICAL EXAM: VITAL SIGNS: As above GENERAL: Sitting up in bed, respiratory effort mildly increased HEENT: Conjunctivae normal. eyes normal. NECK: No JVD. No thyroid enlargement. No LNs CARDIOVASCULAR: S1, S2 muffled. No murmur RESPIRATION: Improving air entry, Breath sounds diminished in the bases. Scattered rhonchi. Occasional fine Fine scattered crackles. No wheezing. ABDOMEN: Soft, nontender . No guarding. no masses palpable.Bowel sounds heard. LEGS: Positive edema PSYCHIATRY:/NERVOUS SYSTEM: Alert and oriented 3, moves all 4 extremities no focal deficits, Skin: no ulcer no rash - Labs CBC & Chem 7: 12/02/17 04:28 12/02/17 04:28 Labs: Abnormal Lab Results - Last 24 Hours (Table) 12/02/17 12/02/17 12/02/17 Range/Units 01:07 04:28 04:28 WBC 11.7 H (3.8-10.6) k/uL RBC 2.86 L (3.80-5.40) m/uL Hgb 8.0 L (11.4-16.0) gm/dL Hct 25.1 L (34.0-46.0) % RDW 17.7 H (11.5-15.5) % Neutrophils # (Manual) 11.12 H (1.3-7.7) k/uL Lymphocytes # (Manual) 0.35 L (1.0-4.8) k/uL Nucleated RBCs 1 H (0-0) /100 WBC Carbon Dioxide 33 H (22-30) mmol/L BUN 51 H (7-17) mg/dL Glucose 113 H (74-99) mg/dL POC Glucose (mg/dL) 118 H (75-99) mg/dL Calcium 8.2 L (8.4-10.2) mg/dL Magnesium 2.6 H (1.6-2.3) mg/dL AST 65 H (14-36) U/L Total Protein 5.3 L (6.3-8.2) g/dL Albumin 2.6 L (3.5-5.0) g/dL 12/02/17 12/02/17 Range/Units 06:57 12:53 WBC (3.8-10.6) k/uL RBC (3.80-5.40) m/uL Hgb (11.4-16.0) gm/dL Hct (34.0-46.0) % RDW (11.5-15.5) % Neutrophils # (Manual) (1.3-7.7) k/uL Lymphocytes # (Manual) (1.0-4.8) k/uL Nucleated RBCs (0-0) /100 WBC Carbon Dioxide (22-30) mmol/L BUN (7-17) mg/dL Glucose (74-99) mg/dL POC Glucose (mg/dL) 114 H 118 H (75-99) mg/dL Calcium (8.4-10.2) mg/dL Magnesium (1.6-2.3) mg/dL AST (14-36) U/L Total Protein (6.3-8.2) g/dL Albumin (3.5-5.0) g/dL Assessment and Plan Assessment: 1. Status post CABG with mitral valve replacement 2. Acute blood loss anemia with massive blood transfusions postoperatively, in a patient with history of GI bleed 3. Hypertension 4. Left subclavian stenosis 5. Proximal atrial fibrillation 6. Postoperative Hypoxic respiratory failure, remains vent dependent 7. Obesity, BMI 41.6 8. S/P PICC line placement 9. Right upper extremity DVT ruled out, incidental find a right arterial occlusion per Doppler Plan: Continue on current medication regime ,monitoring and symptomatic treatment. PT/OT Aggressive pulmonary toileting. Weaning off Primacor in progress. Close monitoring of hemoglobin and platelets. GI and DVT prophylaxis in place. The impression and plan of care has been dictated as directed. : I performed a history and examination of this patient, discussed the same with the dictator. I agree with the dictator's note ,documented as a scribe. Any additional findings or plans will be noted.
[2017-12-02] MEDS: HYDROcodone/APAP 5-325MG 1 EACH TAB PO PRN ×2 (16:24→23:39)
--- NOTE | 2017-12-02 16:28 | FL ---
Modified barium swallow. HISTORY: Dysphagia. Modified barium swallow was performed with the department of speech pathology. The patient was prese nted with various consistencies of barium. Mild transient penetration without aspiration. Full report is to follow from the department of speech pathology. Impression: Mild transient penetration without aspiration.
[2017-12-02 18:03] LABS: Glucose,Whole Blood 158 mg/dL (75-99)
[2017-12-02 20:37] LABS: Glucose,Whole Blood 131 mg/dL (75-99)
[2017-12-02] MEDS: SENNOSIDES-DOCUSATE SODIUM 1 EACH TAB PO SCH (20:39)
[2017-12-03] MEDS: HYDROcodone/APAP 5-325MG 1 EACH TAB PO PRN ×3 (03:50→20:14)
[2017-12-03 04:40] LABS: INR 1.2 (<1.2); Prothrombin Time 11.5 sec (9.0-12.0)
[2017-12-03 04:51] LABS: ALT 35 U/L (9-52); AST 66 U/L (14-36); Alkaline Phosphatase 87 U/L (38-126); Anion Gap 6 mmol/L; Blood Urea Nitrogen 50 mg/dL (7-17); Calcium 8.6 mg/dL (8.4-10.2); Carbon Dioxide 33 mmol/L (22-30); Chloride 102 mmol/L (98-107); Glucose 112 mg/dL (74-99); Magnesium 2.5 mg/dL (1.6-2.3); Sodium 141 mmol/L (137-145); Total Protein 5.9 g/dL (6.3-8.2)
[2017-12-03 05:04] LABS: Anisocytosis Slight; HCT 29.9 % (34.0-46.0); Hypochromasia Marked; MCH 27.1 pg (25.0-35.0); MCHC 30.1 g/dL (31.0-37.0); Platelet Count 225 k/uL (150-450); Poikilocytosis Moderate; RBC 3.32 m/uL (3.80-5.40); RDW 17.3 % (11.5-15.5)
[2017-12-03 05:47] LABS: Lymphocytes # (M) 0.51 k/uL (1.0-4.8); Monocytes # (M) 0.85 k/uL (0-1.0); Myelocytes # (M) 0.17 k/uL (0); Myelocytes % 1 %; Neutrophils # (M) 15.47 k/uL (1.3-7.7); Neutrophils % (M) 91 %; Nucleated Red Blood Cells 0 /100 WBC (0-0); Polychromasia Present; Target Cells Present; Total Cells Counted 200
[2017-12-03] MEDS ORDERED: FUROSEMIDE 10 MG/ML 10 ML VIAL IV STA (07:38)
[2017-12-03] MEDS ORDERED: FUROSEMIDE 10 MG/ML 4 ML VIAL ONE (08:02)
--- NOTE | 2017-12-03 08:36 | XR ---
EXAMINATION TYPE: XR chest 1V portable DATE OF EXAM: 12/03/2017 COMPARISON: 12/02/2017 HISTORY: Shortness of breath FINDINGS: There are bilateral pleural effusions with cardiomegaly and bibasilar infiltrate. There is a diffuse interstitial pattern. Postsurgical change noted. Vascular stent is noted. Central line seen. Chest t ube is been removed. IMPRESSION: 1. Bilateral infiltrate and pleural effusion correlate for CHF. 2. Postoperative changes.
[2017-12-03 08:37] LABS: Glucose,Whole Blood 105 mg/dL (75-99)
[2017-12-03] MEDS: INSULIN ASPART 100 UNIT/ML 1 ML 10 ML VIAL SQ SCH ×4 (08:53→20:26)
[2017-12-03] MEDS: FONDAPARINUX 2.5 MG/0.5 ML SYRINGE SQ SCH (08:54)
[2017-12-03] MEDS: ATORVASTATIN 40 MG TAB PO SCH (08:54)
[2017-12-03] MEDS: ASPIRIN 81 MG PO SCH (08:54)
[2017-12-03] MEDS: METOPROLOL TARTRATE 25 MG TAB PO SCH ×2 (08:54→20:14)
[2017-12-03] MEDS: PANTOPRAZOLE 40 MG/10 ML VIAL IVP SCH (08:54)
[2017-12-03] MEDS: methylPREDNISolone SOD SUCCI 40 MG/ML 1 ML VIAL IV SCH ×2 (08:54→15:00)
[2017-12-03] MEDS: AMIODARONE 200 MG TAB PO SCH ×2 (08:55→20:14)
[2017-12-03] MEDS ORDERED: DIGOXIN 250 MCG/ML 2 ML AMP IVP ONE ×2 (09:00→14:00)
[2017-12-03] MEDS: BUDESONIDE 1 MG/2 ML NEBU INHALATION SCH ×2 (09:01→20:54)
[2017-12-03] MEDS: IPRATROPIUM-ALBUTEROL 3 ML NEB INHALATION SCH ×4 (09:01→20:54)
[2017-12-03] MEDS: FORMOTEROL FUMARATE 20 MCG/2 ML NEBU INHALATION SCH ×2 (09:01→20:54)
--- NOTE | 2017-12-03 10:23 | P.PN ---
Subjective Progress Note Date: 12/03/17 Principal diagnosis: Status post one-vessel bypass grafting and mitral valve replacement Progress note dated 11/29/2017 This is a 67-year-old female status post one-vessel bypass grafting and mitral valve replacement. She apparently had surgery on the . Today is postop day #3. The patient currently remains on the mechanical ventilator. Her vent settings are the assist control mode rate of 1210 of I am is 550 FiO2 50% PEEP of 5. Arterial blood gases show a PaO2 of 135 a PaCO2 of 36 and a pH of 7.47. I'm to make a few changes including bumping the rate up from 12 to 20, and decreasing the tidal volume from 550 down to 400, and dropping the FiO2 from 50- 40%. The patient may not be weaned of old low because she remains on insulin drip at 1 unit per hour, Primacor 0.2 mics per kilogram per minute, norepinephrine at 2 mics per minute, half normal saline at 30 mL an hour and propofol at 25 g kilogram per minute. Chest x-rays consistent with fluid overload but bibasilar infiltrates and small effusions and microbiology is negative. The rest of the labs medications and x-rays are all reviewed. Progress note dated 11/30/2017 This is a 67-year-old female status post one-vessel bypass grafting and mitral valve replacement. She had surgery on the . She is postop day #4. She remains on mechanical ventilator. Yesterday, her chest x-ray showed evidence of fluid overload. She did get some diuretics. Today's chest x-ray still shows evidence of fluid overload although it might be slightly improved. She's currently still on the mechanical ventilator on the assist control mode, rate of 26, tidal volume 400, PEEP of 8, FiO2 40%. The patient's arterial blood gases show a PaO2 of 94 and pH 7.46 in a PaCO2 of 41. The patient will get a daily eruption of sedation and a spontaneous breathing trial. The patient remains on norepinephrine at 3 mcg/m, propofol at 30 mics per kilogram per minute, Primacor 0.2 mics per kilogram per minute, half normal saline IV at 15 mL an hour and vital 1.2 at 60 with a goal of 60 mL an hour. The patient failed her spontaneous breathing trial yesterday very quickly, and afterwards, she became dyssynchronous with the ventilator and I had to bump up the PEEP level to 8 and increase her respiratory rate to 26. We also dropped the tidal volume down to 400. She is much more in synchrony today. Progress note dated 12/01/2017 This is a 67-year-old female who is postop day #5, status post one-vessel bypass grafting and mitral valve replacement. She also has a history of postoperative respiratory failure with failure to wean. She was extubated yesterday though. Chest x-ray has evidence of fluid overload which actually is improved. In addition, the patient had acute blood loss anemia requiring blood transfusion postsurgically, hypertension severe mitral regurgitation left subclavian stenosis paroxysmal atrial fibrillation GI bleed and obesity. Yesterday, post extubation we gave the patient 1 shot of Solu-Medrol 60 mg IV push and also put her on BiPAP at 14/5 and 40%. Chest x-ray does show improvement. Today her hemoglobin is below 7 and she'll receive 1 unit of blood followed by some Lasix IV. In addition, I may add on some IV site Medrol and a smaller dose than normal and also some Pulmicort 1 mg twice a day. Progress note dated 12/02/2017 67-year-old female who is postop day #6 status post single-vessel bypass grafting and mitral valve replacement. The patient has been doing very well the last day and a half to 2 days. She has a history of postoperative respiratory failure and initially, failure to wean. She was extubated 2 days ago. She has had to use of BiPAP on and off since that time. She did receive 1 unit of PRBCs yesterday followed by some Lasix 40 mg IV push. Her chest x- ray my opinion still so-so some fluid overload with a small pool of pleural effusion. Other than that, the patient seemed be doing relatively well. She has a history of hypertension severe mitral regurgitation blood loss anemia following surgery left subclavian stenosis paroxysmal atrial fibrillation GI bleed and obesity. This morning, she'll come off the BiPAP and go back to nasal O2. She prefers a nasal O2 over the BiPAP device. She may have had an episode of aspiration last night. Speech pathology was consulted. In addition , I did check for a DVT in the right upper extremity and the Doppler was negative. Progress note dated 12/03/2017 67-year-old female postop day #7, status post single-vessel bypass grafting and mitral valve replacement. The patient has been doing relatively well although this morning she was a bit more short of breath. Chest x-ray does show some fluid overload. She's been on and off of BiPAP. This morning she was on O2 nasal cannula at 3 L. The cardiothoracic practitioner thought she was a bit more short of breath I went and saw her. I looked at her chest x-ray. We asked her to go back on BiPAP at 14 and 5 and 40% and we also gave her Lasix 60 mg IV push. She seemed be doing a lot better now. She's not receiving any IV fluids. Chest x-ray does show fluid overload. Again the Lasix was given this morning. She was a bit to This morning. Breathing about 25 times a minute. No swapnil distress. In addition, she has a history of hypertension severe mitral regurgitation blood loss anemia following her open heart surgery, left subclavian artery stenosis paroxysmal atrial fibrillation GI bleed and obesity. Objective - Vital Signs Vital signs: Vital Signs Temp 98.1 F 12/03/17 08:00 Pulse 120 H 12/03/17 10:00 Resp 23 12/03/17 10:00 BP 104/67 12/03/17 10:00 Pulse Ox 96 12/03/17 10:00 Intake & Output 12/02/17 12/03/17 12/03/17 18:59 06:59 18:59 Intake Total 70 720 240 Output Total 960 350 801 Balance -890 370 -561 Weight 106 kg 106 kg Intake: IV 70 Sodium Chloride 0.45% 1, 70 000 ml @ 10 mls/hr IV . Q24H [facility] Rx#:[id number] Oral 720 240 Output: Chest Tube Drainage 0 Left Pleural 0 Urine 960 350 801 Other: Voiding Method Indwelling Catheter Bedpan Bedpan # Voids 1 0 # Bowel Movements 1 ABP, PAP, CO, CI - Last Documented Arterial Blood Pressure 110/60 Pulmonary Artery Pressure 38/33 Cardiac Output 5.8 Cardiac Index 2.9 - Exam No acute distress, patient is on BiPAP. BiPAP settings are 14/5 and 40%. NG tube and endotracheal tube removed yesterday. HEENT examination is grossly unremarkable. Mucous membranes are moist. No oral lesions. Neck supple. Full range of motion. No adenopathy thyromegaly or neck vein distention. Cardiovascular examination reveals regular rhythm rate. S1-S2 normal. No S3 or S4. No discernible murmur noted. Lungs reveal very coarse bilateral breath sounds. Her sounds are equal bilaterally. No wheezes. A few scattered crackles. Abdomen soft bowel sounds are heard. No masses or tenderness. Extremities are intact. No cyanosis or clubbing. There is slight edema. Skin is without rash or lesion. Neurologic examination is brief but nonfocal. - Labs CBC & Chem 7: 12/03/17 04:15 12/03/17 04:15 Labs: Abnormal Lab Results - Last 24 Hours (Table) 12/02/17 12/02/17 12/02/17 Range/Units 12:53 18:01 20:36 WBC (3.8-10.6) k/uL RBC (3.80-5.40) m/uL Hgb (11.4-16.0) gm/dL Hct (34.0-46.0) % MCHC (31.0-37.0) g/dL RDW (11.5-15.5) % Neutrophils # (Manual) (1.3-7.7) k/uL Lymphocytes # (Manual) (1.0-4.8) k/uL Myelocytes # (Manual) (0) k/uL INR (<1.2) Carbon Dioxide (22-30) mmol/L BUN (7-17) mg/dL Glucose (74-99) mg/dL POC Glucose (mg/dL) 118 H 158 H 131 H (75-99) mg/dL Magnesium (1.6-2.3) mg/dL AST (14-36) U/L Total Protein (6.3-8.2) g/dL Albumin (3.5-5.0) g/dL 12/03/17 12/03/17 12/03/17 Range/Units 04:15 04:15 04:15 WBC 17.0 H (3.8-10.6) k/uL RBC 3.32 L (3.80-5.40) m/uL Hgb 9.0 L (11.4-16.0) gm/dL Hct 29.9 L (34.0-46.0) % MCHC 30.1 L (31.0-37.0) g/dL RDW 17.3 H (11.5-15.5) % Neutrophils # (Manual) 15.47 H (1.3-7.7) k/uL Lymphocytes # (Manual) 0.51 L (1.0-4.8) k/uL Myelocytes # (Manual) 0.17 H (0) k/uL INR 1.2 H (<1.2) Carbon Dioxide 33 H (22-30) mmol/L BUN 50 H (7-17) mg/dL Glucose 112 H (74-99) mg/dL POC Glucose (mg/dL) (75-99) mg/dL Magnesium 2.5 H (1.6-2.3) mg/dL AST 66 H (14-36) U/L Total Protein 5.9 L (6.3-8.2) g/dL Albumin 3.0 L (3.5-5.0) g/dL 12/03/17 Range/Units 08:35 WBC (3.8-10.6) k/uL RBC (3.80-5.40) m/uL Hgb (11.4-16.0) gm/dL Hct (34.0-46.0) % MCHC (31.0-37.0) g/dL RDW (11.5-15.5) % Neutrophils # (Manual) (1.3-7.7) k/uL Lymphocytes # (Manual) (1.0-4.8) k/uL Myelocytes # (Manual) (0) k/uL INR (<1.2) Carbon Dioxide (22-30) mmol/L BUN (7-17) mg/dL Glucose (74-99) mg/dL POC Glucose (mg/dL) 105 H (75-99) mg/dL Magnesium (1.6-2.3) mg/dL AST (14-36) U/L Total Protein (6.3-8.2) g/dL Albumin (3.5-5.0) g/dL Assessment and Plan Assessment: Assessment Postop day #6, status post one-vessel bypass grafting and mitral valve replacement Postoperative respiratory failure with failure to wean, with extubation occurring on 11/30/2017 Chest x-ray evidence of fluid overload Acute blood loss anemia requiring blood transfusion History of hypertension History of severe mitral regurgitation History of left subclavian stenosis Paroxysmal atrial fibrillation History of GI bleed Obesity Possible aspiration Plan: Plan dated 11/29/2017 I will make some vent changes today including repeat increasing the rate from 12 -20, dropping the time of I'm down from 550 mL down to 400 mL and also reducing the FiO2 40%. We'll see if we can wean her off the norepinephrine holding propofol and do a daily eruption of sedation to evaluate for spontaneous breathing trial. Microbiology is negative. Labs x-rays and medications all reviewed. Prognosis is guarded. Additional recommendations and suggestions are forthcoming. I believe she would benefit from some diuretics. Blood gases are reviewed. Plan dated 11/30/2017 The patient will again have a daily eruption of sedation with a spontaneous breathing trial. She still remains on a number of different IV medications including norepinephrine, fall, Primacor. Arterial blood gases today are very reasonable. Her vent settings were adjusted yesterday. She's getting nourishment. We'll continue to follow closely. Labs x-rays a medications are reviewed. Hopeful improvement in the next day or so and eventual extubation. Plan dated 11/23/2017 The patient seems to be doing a bit better. Her chest x-ray certainly improved. She'll receive 1 unit of blood. She feels better. She still on BiPAP. She has significant edema throughout. Chest x-ray is improved. I do agree with 1 unit of blood followed by Lasix. We'll continue to follow closely. Medications x-rays and labs are reviewed. Plan dated 12/02/2017 The patient will come off the BiPAP morning go back on nasal O2. Speech pathology was consulted. Chest x-ray looks about the same or slightly better. Still showing a bit of fluid overload. In addition, a Doppler of the right upper extremity was negative for DVT. The patient otherwise seems be doing reasonably well. We'll continue to follow. She is on Primacor and 0.2 mics per kilogram per minute and a half normal saline IV at KVO. BiPAP settings are 14/5 and 40%. Critical care time 34 minutes The patient is doing better after the BiPAP was placed on her. The patient also received Lasix 60 mg IV push. The patient's chest x-ray labs and medications are all reviewed. She's not receiving any additional fluid. We'll continue to follow. Prognosis is guarded. Critical care time 34 minutes. Time with Patient: Greater than 30
--- NOTE | 2017-12-03 11:19 | PN ---
PROGRESS NOTE This is a lady and she is in the ICU 618. She underwent a mitral valve replacement. She remains in atrial flutter. Dr. Mcgraw tried to override her atrial flutter with atrial pacing, but was unsuccessful. We will digitalize her. Her creatinine is normal and if she continues to be in this rhythm, we will consider electrical cardioversion Wednesday. Vitals are stable. Urine output is fair. S1, S2 heard normally. Tachycardia noted. Lungs reveal fair air entry. Rest of physical exam unchanged. Prognosis remains guarded. We will continue current therapy including digoxin and if she remains in flutter, consider cardioversion on Wednesday. Discussed my thoughts with the patient and also with Dr. Mcgraw. MMODL / IJN: [id number] /
--- NOTE | 2017-12-03 11:22 | P.PN ---
Subjective Progress Note Date: 12/03/17 Principal diagnosis: Severe mitral valve regurgitation. Coronary artery disease. Preoperative paroxysmal atrial fibrillation on outpatient Coumadin for anticoagulation. Recent hospitalization for lower GI bleed, and duodenal ulcer. History of left subclavian stenosis with stent placement 2014 with recent discovery of critical re-in-stent stenosis. Previous tobacco dependence with preoperative FEV1 60% of predicted. Hypertension. Hyperlipidemia. Depression on Lexapro. Gallbladder disease. Family history of heart disease. Preoperative nasal swab positive for MRSA. Preoperative anemia with hemoglobin. POD #8 Mitral valve replacement using a 25 mm Ribera bioprosthetic tissue valve. Coronary artery bypass grafting 1, a reverse greater saphenous vein graft to the obtuse marginal coronary artery. Endoscopic harvesting of the left greater saphenous vein. Modified MAZE procedure. The report wasn't back yet not back in Ligation of the left atrial appendage using a 40 mm AtriClip. Epi- aortic ultrasound. Intraoperative transesophageal echocardiogram. Acute blood loss anemia, an expected outcome given patient's preoperative anemia and intraoperative bleeding. Postoperative prolonged mechanical ventilation secondary to hemodynamic instability, an unexpected but potential outcome of surgery given the extensive nature of her postoperative course. Intraoperative left ventricular wall rent, an unexpected but potential outcome of surgery. Patient is currently sitting in the chair position in bed. She is tachypneic with respirations 25-30/m and complaining of some shortness of breath. She was refusing to wear her BiPAP throughout the night. She is alert and oriented x 3. She remains complaining of generalized weakness. She is currently on 3 L nasal cannula with oxygen saturations of 95%. She is achieving 250 mL on her incentive spirometry with encouragement. Objective - Vital Signs Vital signs: Vital Signs Temp 98.1 F 12/03/17 08:00 Pulse 120 H 12/03/17 10:00 Resp 23 12/03/17 10:00 BP 104/67 12/03/17 10:00 Pulse Ox 96 12/03/17 10:00 Intake & Output 12/02/17 12/03/17 12/03/17 18:59 06:59 18:59 Intake Total 70 720 240 Output Total 960 350 801 Balance -890 370 -561 Weight 106 kg 106 kg Intake: IV 70 Sodium Chloride 0.45% 1, 70 000 ml @ 10 mls/hr IV . Q24H [facility] Rx#:[id number] Oral 720 240 Output: Chest Tube Drainage 0 Left Pleural 0 Urine 960 350 801 Other: Voiding Method Indwelling Catheter Bedpan Bedpan # Voids 1 0 # Bowel Movements 1 ABP, PAP, CO, CI - Last Documented Arterial Blood Pressure 110/60 Pulmonary Artery Pressure 38/33 Cardiac Output 5.8 Cardiac Index 2.9 - Constitutional General appearance: Present: cooperative, no acute distress, obese - EENT ENT: Present: hearing grossly normal - Neck Details: No JVD, neck is supple, no lymphadenopathy. - Respiratory Details: Lung sounds diminished throughout, faint tight expiratory wheezes. Respirations are symmetrical and tachycardic 25-30/m, no acute distress. Oxygen saturation is 95% on 3 L nasal cannula. She is achieving 250 mL on her incentive spirometry with much encouragement. - Cardiovascular Details: Regular rhythm and rate. S1 and S2 present, need for S3, gallop or murmur. Sternum is stable. Bedside telemetry showing 2-1 atrial flutter heart rate 114. Heart hugger's in place and she is demonstrating appropriate use. Knee- high DANITZA hose and sequential compression devices in place to her bilateral lower extremities. Generalized +1 to +2 edema. Peripheral pulses palpable. Atrial and ventricular epicardial pacemaker wires in place and grounded. - Gastrointestinal Gastrointestinal Comment(s): Abdomen is soft, nontender and nondistended. Active bowel sounds all 4 bowel quadrants. Tolerating oral intake. Passing flatus. Bowel movement yesterday 12/02/2017. - Genitourinary Genitourinary Comment(s): Urine output adequate. Clear yellow urine. 350 mL output last 8 hours. Patient was given Lasix 40 mg IV 1 yesterday and diuresed 600 mL. - Integumentary Integumentary Comment(s): Midline sternal incision clean dry and well approximated. Scant serosanguineous drainage to her distal incision. No redness present. Dermabond dressing clean and dry. Left leg EVH site clean dry and well approximated. No drainage or redness. Skin is warm, dry and pink. Dressing clean and dry to her right forearm covering a blistered area. Small abrasion to her left buttock's clean and dry. No drainage present. - Neurologic Neurologic: Present: CNII-XII intact - Musculoskeletal Musculoskeletal: Present: generalized weakness, strength equal bilaterally - Psychiatric Psychiatric: Present: A&O x's 3, appropriate affect, intact judgment & insight - Allied health notes Allied health notes reviewed: nursing - Labs CBC & Chem 7: 12/03/17 04:15 12/03/17 04:15 Labs: Abnormal Lab Results - Last 24 Hours (Table) 12/02/17 12/02/17 12/02/17 Range/Units 12:53 18:01 20:36 WBC (3.8-10.6) k/uL RBC (3.80-5.40) m/uL Hgb (11.4-16.0) gm/dL Hct (34.0-46.0) % MCHC (31.0-37.0) g/dL RDW (11.5-15.5) % Neutrophils # (Manual) (1.3-7.7) k/uL Lymphocytes # (Manual) (1.0-4.8) k/uL Myelocytes # (Manual) (0) k/uL INR (<1.2) Carbon Dioxide (22-30) mmol/L BUN (7-17) mg/dL Glucose (74-99) mg/dL POC Glucose (mg/dL) 118 H 158 H 131 H (75-99) mg/dL Magnesium (1.6-2.3) mg/dL AST (14-36) U/L Total Protein (6.3-8.2) g/dL Albumin (3.5-5.0) g/dL 12/03/17 12/03/17 12/03/17 Range/Units 04:15 04:15 04:15 WBC 17.0 H (3.8-10.6) k/uL RBC 3.32 L (3.80-5.40) m/uL Hgb 9.0 L (11.4-16.0) gm/dL Hct 29.9 L (34.0-46.0) % MCHC 30.1 L (31.0-37.0) g/dL RDW 17.3 H (11.5-15.5) % Neutrophils # (Manual) 15.47 H (1.3-7.7) k/uL Lymphocytes # (Manual) 0.51 L (1.0-4.8) k/uL Myelocytes # (Manual) 0.17 H (0) k/uL INR 1.2 H (<1.2) Carbon Dioxide 33 H (22-30) mmol/L BUN 50 H (7-17) mg/dL Glucose 112 H (74-99) mg/dL POC Glucose (mg/dL) (75-99) mg/dL Magnesium 2.5 H (1.6-2.3) mg/dL AST 66 H (14-36) U/L Total Protein 5.9 L (6.3-8.2) g/dL Albumin 3.0 L (3.5-5.0) g/dL 12/03/17 Range/Units 08:35 WBC (3.8-10.6) k/uL RBC (3.80-5.40) m/uL Hgb (11.4-16.0) gm/dL Hct (34.0-46.0) % MCHC (31.0-37.0) g/dL RDW (11.5-15.5) % Neutrophils # (Manual) (1.3-7.7) k/uL Lymphocytes # (Manual) (1.0-4.8) k/uL Myelocytes # (Manual) (0) k/uL INR (<1.2) Carbon Dioxide (22-30) mmol/L BUN (7-17) mg/dL Glucose (74-99) mg/dL POC Glucose (mg/dL) 105 H (75-99) mg/dL Magnesium (1.6-2.3) mg/dL AST (14-36) U/L Total Protein (6.3-8.2) g/dL Albumin (3.5-5.0) g/dL - Imaging and Cardiology Chest x-ray: report reviewed, image reviewed Assessment and Plan (1) Acute blood loss as cause of postoperative anemia Current Visit: Yes Status: Acute Code(s): D62 - ACUTE POSTHEMORRHAGIC ANEMIA SNOMED Code(s): 45957925137416981 (2) CAD (coronary artery disease) Current Visit: Yes Status: Chronic Code(s): I25.10 - ATHSCL HEART DISEASE OF [place] CORONARY ARTERY W/O ANG PCTRS SNOMED Code(s): 70971960 (3) Family history of coronary artery disease Current Visit: Yes Status: Chronic Code(s): Z82.49 - FAMILY HX OF ISCHEM HEART DIS AND OTH DIS OF THE CIRC SYS SNOMED Code(s): 738846115 (4) Hyperlipidemia Current Visit: Yes Status: Chronic Code(s): E78.5 - HYPERLIPIDEMIA, UNSPECIFIED SNOMED Code(s): 64030765 (5) Hypertension Current Visit: Yes Status: Chronic Code(s): I10 - ESSENTIAL (PRIMARY) HYPERTENSION SNOMED Code(s): 76551878 (6) Severe mitral regurgitation Current Visit: Yes Status: Chronic Code(s): I34.0 - NONRHEUMATIC MITRAL ( VALVE) INSUFFICIENCY SNOMED Code(s): 24682117 (7) Stenosis of left subclavian artery Current Visit: Yes Status: Chronic Code(s): I77.1 - STRICTURE OF ARTERY SNOMED Code(s): 520880152 (8) PAD (peripheral artery disease) Current Visit: No Status: Acute Code(s): I73.9 - PERIPHERAL VASCULAR DISEASE , UNSPECIFIED SNOMED Code(s): 406630936 (9) History of GI bleed Current Visit: No Status: Resolved Code(s): Z87.19 - PERSONAL HISTORY OF OTHER DISEASES OF THE DIGESTIVE SYSTEM SNOMED Code(s): 128140187 (10) Paroxysmal atrial fibrillation Current Visit: No Status: Resolved Code(s): I48.0 - PAROXYSMAL ATRIAL FIBRILLATION SNOMED Code(s): 085767581 (11) Elevated aspartate aminotransferase level Current Visit: Yes Status: Acute Code(s): R74.0 - NONSPEC ELEV OF LEVELS OF TRANSAMNS & LACTIC ACID DEHYDRGNSE SNOMED Code(s): 365878453 Plan: 1. Overdrive atrial pacing performed by Dr. Mcgraw today without success of converting the patient to a normal sinus rhythm. Discussed with Dr. SANDRA Salcedo from cardiology digoxin 0.25 mg IV given 1 now and ordered again for 6 hours later. 2. Continue amiodarone 200 mg by mouth twice a day for history of paroxysmal atrial fibrillation on home amiodarone. 3. Bronchodilators and steroid management per pulmonology, Dr. Garcia's recommendations. Patient placed back on BiPAP due to her tachypnea and complaints of shortness of breath. Settings 14/5 with 40% FiO2. 4. GI/DVT prophylaxis. 5. Continue metoprolol to 25 mg by mouth twice a day today. 6. Coumadin 5 mg by mouth today. Monitor daily PT and INRs. 7. Will monitor daily labs, and chest x-rays. 8. Remove atrial and ventricular epicardial pacemaker wires. Bedrest for 1 hour post pacemaker wire removal. 9. Encourage nutrition, follow dietitian's recommendations. Swallow study did not demonstrate any aspiration. 10. Encourage use of her incentive spirometry every hour while awake. 11. Continue Lipitor despite elevated AST. AST remains trending down. 12. Continue low dose aspirin. 13. Postoperative limited 2-D echocardiogram on 11/26/2017 shows an ejection fraction of 45-50%. 14. Lasix 60 mg IV 1 now. 15. Continue Arixtra 2.5 mg subcu daily until INR is therapeutic. 16. Increase activity as tolerated, physical therapy and occupational therapy following. 17. More recommendations as patient progresses in her care. Epicardial pacemaker wires removed without incident at 9 AM today. The patient will be on bed rest for 1 hour post pacemaker wire removal. Time with Patient: Greater than 30
[2017-12-03 12:05] LABS: Glucose,Whole Blood 111 mg/dL (75-99)
--- NOTE | 2017-12-03 13:00 | IR ---
PICC LINE PLACEMENT: HISTORY: Infection requiring long-term antibiotic therapy PROCEDURE: Ultrasound guidance of PICC line placement. COMPLICATIONS: None ANESTHESIA: 1. 1% Lidocaine locally. FINDINGS/TECHNIQUE: The procedure was explained to the patient. The risks, complications, benefits and alternatives were discussed and any questions were answered. Informed consent was obtained. The patient was placed supine on the fluoroscopic table and prepped and draped in the usual sterile fash ion. Utilizing a 21 gauge needle and sonographic guidance, access in the left basilic vein was achi eved and there is placement of a 0.018 guidewire. The vein is patent. A 5-F. sheath was placed over the guidewire. The guidewire and dilator were removed and a 5-F. Double lumen PICC line was placed through the sheath with the chest x-ray confirming the tip at the level of the SVC. The sheath was r emoved, the catheter was flushed and sutured into position. The patient was stable throughout the pr ocedure and remained stable upon discharge from the Department of Radiology. The vein puncture was patent under ultrasound. A bernal scale image was obtained to document patency of the vein punctured. All elements of the maximal barrier technique were utilized. IMPRESSION: 1. Successful PICC line placement under ultrasound performed bedside within the ICU.
[2017-12-03] MEDS: SODIUM CHLORIDE 0.45% 1,000 ML IV SCH (14:58)
[2017-12-03 17:03] LABS: Glucose,Whole Blood 145 mg/dL (75-99)
--- NOTE | 2017-12-03 17:28 | P.PN ---
Subjective Progress Note Date: 12/03/17 Progress note being dictated for Dr. Lugo. Interval history: This is 67-year-old female status post CABG, mitral valve replacement, status post multiple blood products transfusions. Remains vent dependent on 40% FiO2/+5 of PEEP. Chest x-ray reporting fluid overload, improvement in volume status, aeration.Maintained on norepinephrine, Primacor, dopamine and insulin drip. Cardiac index 2.7. Telemetry atrial flutter/sinus tach. Tube feeding initiated via OG tube. Hemoglobin 7.3, Platelets decreased to 64 today, maintained on low-dose aspirin. Review systems unable to obtain as patient sedated and on mechanical ventilation. Active Medications Albuterol/Ipratropium (Duoneb 0.5 Mg-3 Mg/3 Ml Soln) 3 ml INHALATION RT-Q4H [facility] Last Admin: 11/29/17 15:17 Dose: 3 ml Albuterol/Ipratropium (Duoneb 0.5 Mg-3 Mg/3 Ml Soln) 3 ml INHALATION RT-Q2H PRN PRN Reason: Shortness Of Breath Or Wheezing Amiodarone HCl (Cordarone) 200 mg PO BID [facility] Aspirin (Aspirin) 81 mg PO DAILY [facility] Last Admin: 11/29/17 08:54 Dose: 81 mg Atorvastatin Calcium (Lipitor) 40 mg PO DAILY [facility] Last Admin: 11/29/17 08:54 Dose: 40 mg Benzocaine/Menthol (Cepacol Lozenge) 1 each MUCOUS MEM Q2H PRN PRN Reason: Sore Throat Bisacodyl (Dulcolax) 10 mg RECTAL DAILY PRN PRN Reason: Constipation Chlorhexidine Gluconate (Peridex) 15 ml MUCOUS MEM BID [facility] Last Admin: 11/29/17 08:48 Dose: 15 ml Furosemide (Lasix) 40 mg IV ONCE ONE Stop: 11/29/17 20:01 Propofol 1,000 mg/ IV Solution 100 mls @ 0 mls/hr IV .Q0M [facility]; Titrate PRN Reason: Protocol Last Admin: 11/29/17 17:54 Dose: 26.13 mcg/kg/min, 17.2 mls/hr Norepinephrine Bitartrate (Levophed-0.9% Nacl 16 Mg/250ml Pmx) 16 mg in 250 mls @ 0 mls/hr IV .Q0M [facility]; Titrate PRN Reason: Protocol Last Admin: 11/29/17 17:54 Dose: 2 mcg/min, 1.875 mls/hr Sodium Chloride (Saline 0.45%) 1,000 mls @ 30 mls/hr IV .Q24H [facility] Last Admin: 11/29/17 10:28 Dose: Not Given Milrinone Lactate/Dextrose 20 (mg/ IV Solution) 100 mls @ 6.58 mls/hr IV .[id number] [facility] PRN Reason: 0.2 MCG/KG/MIN Last Admin: 11/29/17 15:38 Dose: 0.2 mcg/kg/min, 6.58 mls/hr Insulin Aspart (Novolog) 0 unit SQ Q6HR [facility] PRN Reason: Protocol Last Admin: 11/29/17 12:36 Dose: Not Given Magnesium Hydroxide (Milk Of Magnesia) 2,400 mg PO BID PRN PRN Reason: Constipation Metoprolol Tartrate (Lopressor) 12.5 mg PO BID [facility] Last Admin: 11/29/17 08:55 Dose: 12.5 mg Miscellaneous Information (Magnesium Per Protocol) 1 each MISCELLANE DAILY PRN ; Protocol PRN Reason: Per Protocol Miscellaneous Information (Phosphorus Per Protocol) 1 each MISCELLANE DAILY PRN ; Protocol PRN Reason: Per Protocol Miscellaneous Information (Potassium Per Protocol) 1 each MISCELLANE DAILY PRN ; Protocol PRN Reason: Per Protocol Miscellaneous Information (Potassium Per Protocol) 1 each MISCELLANE DAILY PRN ; Protocol PRN Reason: Per Protocol Morphine Sulfate (Morphine Oral Dana 2mg/Ml) 6 mg PO Q2H PRN PRN Reason: Severe Pain Ondansetron HCl (Zofran) 4 mg IVP Q6HR PRN PRN Reason: Nausea And Vomiting Pantoprazole Sodium (Protonix) 40 mg IVP DAILY [facility] Last Admin: 11/29/17 08:55 Dose: 40 mg Senna/Docusate Sodium (Senokot-S) 2 each PO HS [facility] Last Admin: 11/28/17 20:41 Dose: 2 each Sodium Chloride (Saline Flush) 10 ml IV BID [facility] Last Admin: 11/29/17 08:56 Dose: 10 ml 11/30/2017 Chest x-ray reporting increased congestion, received additional Lasix. extubated this morning, currently maintained on BiPAP. Norepinephrine weaned off this morning. Maintained on Primacor, cardiac index 2.6. Received 1 dose of Lasix IV push. Renal function improving. Hemoglobin 7, platelets increased to 74. Atrial flutter per telemetry. Review systems unable to obtain as patient BiPAP dependent. Active Medications Generic Name Dose Route Start Last Admin Trade Name Freq PRN Reason Stop Dose Admin Albuterol/Ipratropium 3 ml 11/25/17 20:00 11/30/17 15:23 Duoneb 0.5 Mg-3 Mg/3 Ml Soln INHALATION 3 ml RT-Q4H [facility] Administration Albuterol/Ipratropium 3 ml 11/26/17 17:53 Duoneb 0.5 Mg-3 Mg/3 Ml Soln INHALATION RT-Q2H PRN Shortness Of Breath Or Wheezing Amiodarone HCl 200 mg 11/29/17 21:00 11/30/17 08:14 Cordarone PO 200 mg BID [facility] Administration Aspirin 81 mg 11/26/17 10:15 11/30/17 08:15 Aspirin PO 81 mg DAILY [facility] Administration Atorvastatin Calcium 40 mg 11/26/17 09:00 11/30/17 08:14 Lipitor PO 40 mg DAILY [facility] Administration Benzocaine/Menthol 1 each 11/25/17 19:03 Cepacol Lozenge MUCOUS MEM Q2H PRN Sore Throat Bisacodyl 10 mg 11/26/17 17:52 Dulcolax RECTAL DAILY PRN Constipation Fondaparinux 2.5 mg 11/30/17 11:30 11/30/17 13:23 Arixtra SQ 2.5 mg DAILY [facility] Administration Norepinephrine Bitartrate 16 mg in 250 mls @ 0 mls/hr 11/26/17 04:15 11:58 Levophed-0.9% Nacl 16 Mg/250ml Pmx IV 0 mcg/min .Q0M [facility] 0 mls/hr Protocol Titration Titrate Sodium Chloride 1,000 mls @ 10 mls/hr 11/26/17 10:15 11/30/17 12:51 Saline 0.45% IV Not Given .Q24H [facility] Milrinone Lactate/Dextrose 20 100 mls @ 6.58 mls/hr 11/29/17 15:00 11/30/17 08:16 mg/ IV Solution IV 0.2 mcg/kg/min .[id number] [facility] 6.58 mls/hr 0.2 MCG/KG/MIN Infusion Insulin Aspart 0 unit 11/29/17 12:00 11/30/17 12:50 Novolog SQ Not Given Q6HR [facility] Protocol Magnesium Hydroxide 2,400 mg 11/26/17 17:53 Milk Of Magnesia PO BID PRN Constipation Metoprolol Tartrate 12.5 mg 11/26/17 09:00 11/30/17 08:15 Lopressor PO 12.5 mg BID [facility] Administration Miscellaneous Information 1 each 11/25/17 19:03 Magnesium Per Protocol MISCELLANE DAILY PRN Per Protocol Protocol Miscellaneous Information 1 each 11/25/17 19:03 Phosphorus Per Protocol MISCELLANE DAILY PRN Per Protocol Protocol Miscellaneous Information 1 each 11/25/17 19:03 Potassium Per Protocol MISCELLANE DAILY PRN Per Protocol Protocol Miscellaneous Information 1 each 11/29/17 12:01 Potassium Per Protocol MISCELLANE DAILY PRN Per Protocol Protocol Morphine Sulfate 6 mg 11/29/17 13:31 Morphine Oral Dana 2mg/Ml PO Q2H PRN Severe Pain Ondansetron HCl 4 mg 11/25/17 19:03 Zofran IVP Q6HR PRN Nausea And Vomiting Pantoprazole Sodium 40 mg 11/26/17 09:00 11/30/17 08:15 Protonix IVP 40 mg DAILY [facility] Administration Senna/Docusate Sodium 2 each 11/26/17 21:00 11/29/17 20:40 Senokot-S PO 2 each HS [facility] Administration Sodium Chloride 10 ml 11/25/17 21:00 11/30/17 08:15 Saline Flush IV 10 ml BID [facility] Administration 12/01/2017 Breathing improving, weaned off of BiPAP and down to 6 L high flow. Wheezing resolved. Chest x-ray reports improvement. Staff reports patient appeared to be choking on pills last night, speech therapy consulted. Receiving one unit of packed RBCs for hemoglobin of 6.7. Mediastinal chest tubes discontinued, left pleural chest tube remains. Maintained on Primacor. Telemetry atrial flutter. Review of systems: CONSTITUTIONAL: No fever, no malaise HEENT: No recent visual problems or hearing problems. Denied any sore throat. CARDIOVASCULAR: No chest pain, no palpitations, no syncope. PULMONARY: Improving shortness of breath, no cough, no hemoptysis. GASTROINTESTINAL: No diarrhea, no nausea, no vomiting, no abdominal pain. Normoactive bowel sounds. NEUROLOGICAL: No headaches, diffuse weakness, no numbness. HEMATOLOGICAL: Denies any bleeding or petechiae. GENITOURINARY: Denies any burning micturition, frequency, or urgency. ENDOCRINE: Denies any polyuria or polydipsia. PSYCHIATRIC: No anxiety, no depression Active Medications Hydrocodone Bitart/Acetaminophen (Drasco 5-325) 1 each PO Q4HR PRN PRN Reason: MILD TO MODERATE Pain Last Admin: 12/01/17 22:44 Dose: 1 each Hydrocodone Bitart/Acetaminophen (Drasco 5-325) 2 each PO Q4HR PRN PRN Reason: MODERATE TO SEVERE Pain Albuterol/Ipratropium (Duoneb 0.5 Mg-3 Mg/3 Ml Soln) 3 ml INHALATION RT-Q4H [facility] Last Admin: 12/02/17 15:06 Dose: 3 ml Albuterol/Ipratropium (Duoneb 0.5 Mg-3 Mg/3 Ml Soln) 3 ml INHALATION RT-Q2H PRN PRN Reason: Shortness Of Breath Or Wheezing Last Admin: 12/01/17 18:09 Dose: 3 ml Amiodarone HCl (Cordarone) 200 mg PO BID [facility] Last Admin: 12/02/17 08:10 Dose: 200 mg Aspirin (Aspirin) 81 mg PO DAILY [facility] Last Admin: 12/02/17 08:10 Dose: 81 mg Atorvastatin Calcium (Lipitor) 40 mg PO DAILY [facility] Last Admin: 12/02/17 08:10 Dose: 40 mg Benzocaine/Menthol (Cepacol Lozenge) 1 each MUCOUS MEM Q2H PRN PRN Reason: Sore Throat Bisacodyl (Dulcolax) 10 mg RECTAL DAILY PRN PRN Reason: Constipation Budesonide (Pulmicort) 1 mg INHALATION RT-BID [facility] Last Admin: 12/02/17 07:19 Dose: 1 mg Fondaparinux (Arixtra) 2.5 mg SQ DAILY [facility] Last Admin: 12/02/17 08:10 Dose: 2.5 mg Formoterol Fumarate (Perforomist) 20 mcg INHALATION RT-BID [facility] Last Admin: 12/02/17 07:36 Dose: 20 mcg Norepinephrine Bitartrate (Levophed-0.9% Nacl 16 Mg/250ml Pmx) 16 mg in 250 mls @ 0 mls/hr IV .Q0M [facility]; Titrate PRN Reason: Protocol Last Titration: 11/30/17 11:58 Dose: 0 mcg/min, 0 mls/hr Sodium Chloride (Saline 0.45%) 1,000 mls @ 10 mls/hr IV .Q24H [facility] Last Admin: 12/01/17 14:04 Dose: 10 mls/hr Milrinone Lactate/Dextrose 20 (mg/ IV Solution) 100 mls @ 6.58 mls/hr IV .[id number] [facility] PRN Reason: 0.2 MCG/KG/MIN Last Admin: 12/02/17 08:57 Dose: 0.2 mcg/kg/min, 6.58 mls/hr Insulin Aspart (Novolog) 0 unit SQ Q6HR [facility] PRN Reason: Protocol Last Admin: 12/02/17 12:53 Dose: Not Given Magnesium Hydroxide (Milk Of Magnesia) 2,400 mg PO BID PRN PRN Reason: Constipation Methylprednisolone Sodium Succinate (Solu-Medrol) 30 mg IV Q8HR [facility] Last Admin: 12/02/17 08:10 Dose: 30 mg Metoprolol Tartrate (Lopressor) 25 mg PO BID [facility] Last Admin: 12/02/17 08:59 Dose: 25 mg Miscellaneous Information (Magnesium Per Protocol) 1 each MISCELLANE DAILY PRN ; Protocol PRN Reason: Per Protocol Miscellaneous Information (Phosphorus Per Protocol) 1 each MISCELLANE DAILY PRN ; Protocol PRN Reason: Per Protocol Miscellaneous Information (Potassium Per Protocol) 1 each MISCELLANE DAILY PRN ; Protocol PRN Reason: Per Protocol Miscellaneous Information (Potassium Per Protocol) 1 each MISCELLANE DAILY PRN ; Protocol PRN Reason: Per Protocol Ondansetron HCl (Zofran) 4 mg IVP Q6HR PRN PRN Reason: Nausea And Vomiting Pantoprazole Sodium (Protonix) 40 mg IVP DAILY [facility] Last Admin: 12/02/17 08:10 Dose: 40 mg Senna/Docusate Sodium (Senokot-S) 2 each PO HS [facility] Last Admin: 12/01/17 21:55 Dose: 2 each Sodium Chloride (Saline Flush) 10 ml IV BID [facility] Last Admin: 12/02/17 12:51 Dose: 10 ml 12/02/17 Much more alert today. Oxygen weaned further down to 5 L nasal cannula, maintaining O2 sats in the high 90s. Pleural chest tube discontinued. Chest x- ray reporting probable right lower lobe atelectasis/effusion. Underwent modified barium swallow, with recommendations of regular diet, thin liquids, chin tuck, no straw, small bites/sepsis/sips; no impairment with exception of mild transient penetration with thin liquids which patient independently cleared. Yesterday receive 1 unit of packed RBCs with current hemoglobin 8. Weaning of Primacor in progress. 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 Review of systems: CONSTITUTIONAL: No fever, no malaise, no fatigue. HEENT: No recent visual problems or hearing problems. Denied any sore throat. CARDIOVASCULAR: No chest pain, no palpitations, no syncope. PULMONARY: Minimal shortness of breath, no cough, no hemoptysis. GASTROINTESTINAL: No diarrhea, no nausea, no vomiting, no abdominal pain. Normoactive bowel sounds. NEUROLOGICAL: No headaches, no weakness, no numbness. HEMATOLOGICAL: Denies any bleeding or petechiae. GENITOURINARY: Denies any burning micturition, frequency, or urgency. MUSCULOSKELETAL/RHEUMATOLOGICAL: Denies any joint pain, swelling, or any muscle pain. ENDOCRINE: Denies any polyuria or polydipsia. PSYCHIATRIC: No anxiety, no depression The rest of the 14 point review of systems is negative Active Medications Generic Name Dose Route Start Last Admin Trade Name Freq PRN Reason Stop Dose Admin Hydrocodone Bitart/Acetaminophen 1 each 12/01/17 12:20 12/01/17 22:44 Drasco 5-325 PO 1 each Q4HR PRN Administration MILD TO MODERATE Pain Hydrocodone Bitart/Acetaminophen 2 each 12/01/17 12:20 Drasco 5-325 PO Q4HR PRN MODERATE TO SEVERE Pain Albuterol/Ipratropium 3 ml 11/25/17 20:00 12/02/17 15:06 Duoneb 0.5 Mg-3 Mg/3 Ml Soln INHALATION 3 ml RT-Q4H [facility] Administration Albuterol/Ipratropium 3 ml 11/26/17 17:53 12/01/17 18:09 Duoneb 0.5 Mg-3 Mg/3 Ml Soln INHALATION 3 ml RT-Q2H PRN Administration Shortness Of Breath Or Wheezing Amiodarone HCl 200 mg 11/29/17 21:00 12/02/17 08:10 Cordarone PO 200 mg BID [facility] Administration Aspirin 81 mg 11/26/17 10:15 12/02/17 08:10 Aspirin PO 81 mg DAILY [facility] Administration Atorvastatin Calcium 40 mg 11/26/17 09:00 12/02/17 08:10 Lipitor PO 40 mg DAILY [facility] Administration Benzocaine/Menthol 1 each 11/25/17 19:03 Cepacol Lozenge MUCOUS MEM Q2H PRN Sore Throat Bisacodyl 10 mg 11/26/17 17:52 Dulcolax RECTAL DAILY PRN Constipation Budesonide 1 mg 12/01/17 20:00 12/02/17 07:19 Pulmicort INHALATION 1 mg RT-BID [facility] Administration Fondaparinux 2.5 mg 11/30/17 11:30 12/02/17 08:10 Arixtra SQ 2.5 mg DAILY [facility] Administration Formoterol Fumarate 20 mcg 12/01/17 20:00 12/02/17 07:36 Perforomist INHALATION 20 mcg RT-BID [facility] Administration Norepinephrine Bitartrate 16 mg in 250 mls @ 0 mls/hr 11/26/17 04:15 11:58 Levophed-0.9% Nacl 16 Mg/250ml Pmx IV 0 mcg/min .Q0M [facility] 0 mls/hr Protocol Titration Titrate Sodium Chloride 1,000 mls @ 10 mls/hr 11/26/17 10:15 12/02/17 15:41 Saline 0.45% IV Not Given .Q24H [facility] Milrinone Lactate/Dextrose 20 100 mls @ 6.58 mls/hr 11/29/17 15:00 12/02/17 08:57 mg/ IV Solution IV 0.2 mcg/kg/min .[id number] [facility] 6.58 mls/hr 0.2 MCG/KG/MIN Administration Insulin Aspart 0 unit 11/29/17 12:00 12/02/17 12:53 Novolog SQ Not Given Q6HR [facility] Protocol Magnesium Hydroxide 2,400 mg 11/26/17 17:53 Milk Of Magnesia PO BID PRN Constipation Methylprednisolone Sodium Succinate 30 mg 12/01/17 16:00 12/02/17 08:10 Solu-Medrol IV 30 mg Q8HR [facility] Administration Metoprolol Tartrate 25 mg 12/02/17 09:00 12/02/17 08:59 Lopressor PO 25 mg BID [facility] Administration Miscellaneous Information 1 each 11/25/17 19:03 Magnesium Per Protocol MISCELLANE DAILY PRN Per Protocol Protocol Miscellaneous Information 1 each 11/25/17 19:03 Phosphorus Per Protocol MISCELLANE DAILY PRN Per Protocol Protocol Miscellaneous Information 1 each 11/25/17 19:03 Potassium Per Protocol MISCELLANE DAILY PRN Per Protocol Protocol Miscellaneous Information 1 each 11/29/17 12:01 Potassium Per Protocol MISCELLANE DAILY PRN Per Protocol Protocol Ondansetron HCl 4 mg 11/25/17 19:03 Zofran IVP Q6HR PRN Nausea And Vomiting Pantoprazole Sodium 40 mg 11/26/17 09:00 12/02/17 08:10 Protonix IVP 40 mg DAILY [facility] Administration Senna/Docusate Sodium 2 each 11/26/17 21:00 12/01/17 21:55 Senokot-S PO 2 each HS [facility] Administration Sodium Chloride 10 ml 11/25/17 21:00 12/02/17 12:51 Saline Flush IV 10 ml BID [facility] Administration 12/03/17 maintained on nebulized bronchodilators, steroids,patient tachypneic, requiring BiPap throughout today off and on. Chest x-ray suggestive of fluid overload. Received additional Lasix. Maintained on oral amiodarone, remains in a-flutter. Overdrive atrial pacing attempted unsuccessfully. Digoxin 2 ordered. Pacer wires discontinued today. Stool at bedside with PT OT, remains extremely weak. Primacor weaned off yesterday. Objective - Vital Signs Vital signs: Vital Signs Temp 98.7 F 12/03/17 12:00 Pulse 120 H 12/03/17 16:21 Resp 22 12/03/17 15:00 BP 101/53 12/03/17 15:00 Pulse Ox 96 12/03/17 15:00 Intake & Output 12/02/17 12/03/17 12/03/17 18:59 06:59 18:59 Intake Total 70 720 240 Output Total 960 350 801 Balance -890 370 -561 Weight 106 kg 106 kg Intake: IV 70 Sodium Chloride 0.45% 1, 70 000 ml @ 10 mls/hr IV . Q24H [facility] Rx#:[id number] Oral 720 240 Output: Chest Tube Drainage 0 Left Pleural 0 Urine 960 350 801 Other: Voiding Method Indwelling Catheter Bedpan Bedpan # Voids 1 0 # Bowel Movements 1 ABP, PAP, CO, CI - Last Documented Arterial Blood Pressure 110/60 Pulmonary Artery Pressure 38/33 Cardiac Output 5.8 Cardiac Index 2.9 - Exam PHYSICAL EXAM: VITAL SIGNS: As above GENERAL: Sitting up in bed, respiratory effort increased, wearing BiPAP HEENT: Conjunctivae normal. eyes normal. NECK: No JVD. No thyroid enlargement. No LNs CARDIOVASCULAR: S1, S2 muffled. No murmur RESPIRATION: Breath sounds diminished in the bases. Scattered rhonchi. Occasional fine Fine scattered crackles. Fine expiratory wheezing. ABDOMEN: Soft, nontender . No guarding. no masses palpable.Bowel sounds heard. Extremities: Positive edema PSYCHIATRY:/NERVOUS SYSTEM: Alert and oriented 3, moves all 4 extremities no focal deficits, Skin: no ulcer no rash - Labs CBC & Chem 7: 12/03/17 04:15 12/03/17 04:15 Labs: Abnormal Lab Results - Last 24 Hours (Table) 12/02/17 12/02/17 12/03/17 Range/Units 18:01 20:36 04:15 WBC 17.0 H (3.8-10.6) k/uL RBC 3.32 L (3.80-5.40) m/uL Hgb 9.0 L (11.4-16.0) gm/dL Hct 29.9 L (34.0-46.0) % MCHC 30.1 L (31.0-37.0) g/dL RDW 17.3 H (11.5-15.5) % Neutrophils # (Manual) 15.47 H (1.3-7.7) k/uL Lymphocytes # (Manual) 0.51 L (1.0-4.8) k/uL Myelocytes # (Manual) 0.17 H (0) k/uL INR (<1.2) Carbon Dioxide (22-30) mmol/L BUN (7-17) mg/dL Glucose (74-99) mg/dL POC Glucose (mg/dL) 158 H 131 H (75-99) mg/dL Magnesium (1.6-2.3) mg/dL AST (14-36) U/L Total Protein (6.3-8.2) g/dL Albumin (3.5-5.0) g/dL 12/03/17 12/03/17 12/03/17 Range/Units 04:15 04:15 08:35 WBC (3.8-10.6) k/uL RBC (3.80-5.40) m/uL Hgb (11.4-16.0) gm/dL Hct (34.0-46.0) % MCHC (31.0-37.0) g/dL RDW (11.5-15.5) % Neutrophils # (Manual) (1.3-7.7) k/uL Lymphocytes # (Manual) (1.0-4.8) k/uL Myelocytes # (Manual) (0) k/uL INR 1.2 H (<1.2) Carbon Dioxide 33 H (22-30) mmol/L BUN 50 H (7-17) mg/dL Glucose 112 H (74-99) mg/dL POC Glucose (mg/dL) 105 H (75-99) mg/dL Magnesium 2.5 H (1.6-2.3) mg/dL AST 66 H (14-36) U/L Total Protein 5.9 L (6.3-8.2) g/dL Albumin 3.0 L (3.5-5.0) g/dL 12/03/17 12/03/17 Range/Units 12:02 17:01 WBC (3.8-10.6) k/uL RBC (3.80-5.40) m/uL Hgb (11.4-16.0) gm/dL Hct (34.0-46.0) % MCHC (31.0-37.0) g/dL RDW (11.5-15.5) % Neutrophils # (Manual) (1.3-7.7) k/uL Lymphocytes # (Manual) (1.0-4.8) k/uL Myelocytes # (Manual) (0) k/uL INR (<1.2) Carbon Dioxide (22-30) mmol/L BUN (7-17) mg/dL Glucose (74-99) mg/dL POC Glucose (mg/dL) 111 H 145 H (75-99) mg/dL Magnesium (1.6-2.3) mg/dL AST (14-36) U/L Total Protein (6.3-8.2) g/dL Albumin (3.5-5.0) g/dL Assessment and Plan Assessment: 1. Status post CABG with mitral valve replacement 2. Acute blood loss anemia with massive blood transfusions postoperatively, in a patient with history of GI bleed 3. Hypertension 4. Left subclavian stenosis 5. Proximal atrial fibrillation 6. Postoperative Hypoxic respiratory failure, status post vent dependent, currently requiring intermittent use of BiPAP 7. Obesity, BMI 41.6 8. S/P PICC line placement 9. Right upper extremity DVT ruled out, incidental find a right arterial occlusion per Doppler Plan: Continue on current medication regime ,monitoring and symptomatic treatment. PT/OT Aggressive pulmonary toileting. Anticoagulated on Arixtra. Close monitoring of hemoglobin and platelets. GI and DVT prophylaxis in place. The impression and plan of care has been dictated as directed. : I performed a history and examination of this patient, discussed the same with the dictator. I agree with the dictator's note ,documented as a scribe. Any additional findings or plans will be noted.
[2017-12-03] MEDS ORDERED: WARFARIN 5 MG TAB PO ONE (18:00)
[2017-12-03] MEDS: SENNOSIDES-DOCUSATE SODIUM 1 EACH TAB PO SCH (20:14)
[2017-12-03 20:23] LABS: Glucose,Whole Blood 136 mg/dL (75-99)
[2017-12-04] MEDS: methylPREDNISolone SOD SUCCI 40 MG/ML 1 ML VIAL IV SCH ×4 (00:34→23:50)
[2017-12-04 04:34] LABS: Ionized Calcium 4.9 mg/dL (4.5-5.3)
[2017-12-04 04:40] LABS: Anisocytosis Slight; Basophils % (A) 0 %; Eosinophils % (A) 0 %; HCT 30.4 % (34.0-46.0); HGB 9.1 gm/dL (11.4-16.0); Hypochromasia Marked; Lymphocytes # (A) 0.4 k/uL (1.0-4.8); Lymphocytes % (A) 2 %; MCH 27.1 pg (25.0-35.0); MCV 90.5 fL (80.0-100.0); Mean Platelet Volume 7.6; Monocytes # (A) 0.8 k/uL (0-1.0); Monocytes % (A) 3 %; Neutrophils # (A) 22.4 k/uL (1.3-7.7); Neutrophils % (A) 94 %; Platelet Count 240 k/uL (150-450); Poikilocytosis Moderate; RBC 3.36 m/uL (3.80-5.40); RDW 17.2 % (11.5-15.5); WBC 23.8 k/uL (3.8-10.6)
[2017-12-04 04:47] LABS: ALT 34 U/L (9-52); AST 50 U/L (14-36); Albumin 2.8 g/dL (3.5-5.0); Alkaline Phosphatase 79 U/L (38-126); Anion Gap 6 mmol/L; Blood Urea Nitrogen 48 mg/dL (7-17); Calcium 8.7 mg/dL (8.4-10.2); Carbon Dioxide 34 mmol/L (22-30); Chloride 101 mmol/L (98-107); Glucose 118 mg/dL (74-99); Magnesium 2.4 mg/dL (1.6-2.3); Potassium 4.2 mmol/L (3.5-5.1); Sodium 141 mmol/L (137-145); Total Protein 5.6 g/dL (6.3-8.2)
[2017-12-04 04:51] LABS: INR 1.3 (<1.2); Prothrombin Time 11.9 sec (9.0-12.0)
[2017-12-04 06:54] LABS: Glucose,Whole Blood 123 mg/dL (75-99)
[2017-12-04] MEDS: INSULIN ASPART 100 UNIT/ML 1 ML 10 ML VIAL SQ SCH ×4 (06:56→20:23)
[2017-12-04] MEDS: FORMOTEROL FUMARATE 20 MCG/2 ML NEBU INHALATION SCH (07:21)
[2017-12-04] MEDS: BUDESONIDE 1 MG/2 ML NEBU INHALATION SCH ×2 (07:21→20:37)
[2017-12-04] MEDS: IPRATROPIUM-ALBUTEROL 3 ML NEB INHALATION SCH ×4 (07:22→20:37)
[2017-12-04] MEDS ORDERED: DEXTROSE 5% IN WATER 100 ML with AMIODARONE 150 MG IV STA (07:41)
--- NOTE | 2017-12-04 07:57 | XR ---
EXAMINATION TYPE: XR chest 1V portable DATE OF EXAM: 12/04/2017 COMPARISON: 12/03/2017 INDICATION: Postop mitral valve replacement TECHNIQUE: Single frontal view of the chest is obtained. FINDINGS: The heart size is enlarged. The pulmonary vasculature is normal. This may be slightly improved Bibasilar infiltrates are present. This may have slight improvement. Sternotomy wires are present from the cardiac valve surgery. Stent is in the superior aortic level. IMPRESSION: 1. Improving bibasilar infiltrates. 2. Cardiomegaly
[2017-12-04] MEDS ORDERED: FUROSEMIDE 10 MG/ML 10 ML VIAL IV STA (09:10)
[2017-12-04] MEDS ORDERED: DIGOXIN 250 MCG/ML 2 ML AMP IVP ONE (09:11)
[2017-12-04] MEDS: AMIODARONE 200 MG TAB PO SCH ×2 (09:36→20:22)
[2017-12-04] MEDS: METOPROLOL TARTRATE 25 MG TAB PO SCH ×3 (09:36→23:50)
[2017-12-04] MEDS: FONDAPARINUX 2.5 MG/0.5 ML SYRINGE SQ SCH (09:37)
[2017-12-04] MEDS: ATORVASTATIN 40 MG TAB PO SCH (09:37)
[2017-12-04] MEDS: ASPIRIN 81 MG PO SCH (09:37)
[2017-12-04] MEDS: PANTOPRAZOLE 40 MG/10 ML VIAL IVP SCH (09:37)
[2017-12-04] MEDS ORDERED: METOPROLOL TARTRATE 5 MG/5 ML VIAL IVP STA (09:58)
[2017-12-04] MEDS ORDERED: METOPROLOL TARTRATE 5 MG/5 ML VIAL IVP ONE (10:01)
[2017-12-04 10:12] LABS: Appearance,Urine Cloudy (Clear); Bacteria,Urine Occasional /hpf; Bilirubin,Urine Negative (Negative); Blood,Urine Negative (Negative); Color,Urine Yellow; Glucose,Urine (UA) Negative (Negative); Ketones,Urine Negative (Negative); Leukocyte Esterase,Urine Negative (Negative); Mucus,Urine Rare /hpf; Nitrite,Urine Negative (Negative); PH, Urine 5.5 (5.0-8.0); Protein,Urine Trace (Negative); RBC,Urine 7 /hpf (0-5); Specific Gravity,Urine 1.015 (1.001-1.035); Squamous Epithelial Cell,Urine 8 /hpf (0-4); Urobilinogen,Urine <2.0 mg/dL (<2.0); WBC,Urine 1 /hpf (0-5)
--- NOTE | 2017-12-04 11:19 | P.PN ---
Subjective Progress Note Date: 12/04/17 Principal diagnosis: Severe mitral regurgitation. Coronary artery disease. Paroxysmal atrial fibrillation on Coumadin for anticoagulation. Recent hospitalization for lower GI bleed, duodenal ulcer. History of left subclavian stenosis with stent placement 2014 with recent discovery of critical re-in-stent stenosis. Previous tobacco dependence with preoperative FEV1 60% of predicted. Hypertension. Hyperlipidemia. Gallbladder disease. Family history of heart disease. Preoperative nasal swab positive for MRSA. Preoperative anemia. POD #9 mitral valve replacement using a 25 mm Ribera bioprosthetic tissue valve. Coronary artery bypass grafting 1, reverse saphenous vein graft to the obtuse marginal artery. Maze procedure. Endoscopic harvesting of the right greater saphenous vein. Epi-aortic ultrasound. Intraoperative transesophageal echocardiogram. Ligation of the left atrial appendage using a 40 mm AtriClip. Intraoperative left ventricular wall tear, an unexpected but potential outcome of surgery Acute blood loss anemia, and expected outcome given patient's preoperative anemia and intraoperative bleeding. Postoperative prolonged mechanical ventilation secondary to hemodynamic instability, and unexpected but potential outcome of surgery given the extensive nature of her perioperative course The patient's currently sitting up in bed in no acute distress. Was on BiPAP last night, currently on 3 L nasal cannula. Did have an accelerated heart rate up to 160s this morning, IV push Lopressor given, current heart rate in the 80s. States pain is well-controlled, denies shortness of breath. States she is feeling a little better everyday. Objective - Vital Signs Vital signs: Vital Signs Temp 99.2 F 12/04/17 08:00 Pulse 147 H 12/04/17 10:00 Resp 19 12/04/17 10:00 BP 142/82 12/04/17 10:00 Pulse Ox 98 12/04/17 10:00 Intake & Output 12/03/17 12/04/17 12/04/17 18:59 06:59 18:59 Intake Total 640 600 385 Output Total 801 0 150 Balance -161 600 235 Weight 106 kg 105.2 kg Intake: Oral 640 600 385 Output: Urine 801 0 150 Other: Voiding Method Bedpan Bedpan # Voids 0 1 ABP, PAP, CO, CI - Last Documented Arterial Blood Pressure 110/60 Pulmonary Artery Pressure 38/33 Cardiac Output 5.8 Cardiac Index 2.9 - Constitutional General appearance: Present: cooperative, no acute distress, obese - Respiratory Details: Lungs sounds diminished bilaterally. Respirations even, nonlabored. Currently on 5 L nasal cannula with oxygen saturation 97%. - Cardiovascular Details: S1, S2 present. Irregular rate and rhythm, atrial fibrillation/flutter on telemetry. Sternum stable. Palpable peripheral pulses bilaterally. Generalized edema still present. No calf pain or tenderness noted. Left brachial PICC line present. Heart hugger in place with patient demonstrating appropriate use. Antiembolism stockings, SCDs present. - Gastrointestinal Gastrointestinal Comment(s): Abdomen soft, nontender, nondistended. Active bowel sounds 4 quadrants. Tolerating diet. Positive bowel movement. - Genitourinary Genitourinary Comment(s): Voiding clear, yellow urine. - Integumentary Integumentary Comment(s): Skin is warm and dry with multiple areas of ecchymosis. Anterior chest incision well approximated covered with dry intact dressing. Left lower extremity EVH site well approximated. Patient does have dressing present to her gluteal fold area. - Neurologic Neurologic: Present: CNII-XII intact - Musculoskeletal Musculoskeletal: Present: generalized weakness - Psychiatric Psychiatric: Present: A&O x's 3, appropriate affect, intact judgment & insight - Allied health notes Allied health notes reviewed: nursing - Labs CBC & Chem 7: 12/04/17 04:10 12/04/17 04:10 Labs: Abnormal Lab Results - Last 24 Hours (Table) 12/03/17 12/03/17 12/03/17 Range/Units 12:02 17:01 20:19 WBC (3.8-10.6) k/uL RBC (3.80-5.40) m/uL Hgb (11.4-16.0) gm/dL Hct (34.0-46.0) % MCHC (31.0-37.0) g/dL RDW (11.5-15.5) % Neutrophils # (1.3-7.7) k/uL Lymphocytes # (1.0-4.8) k/uL INR (<1.2) Carbon Dioxide (22-30) mmol/L BUN (7-17) mg/dL Glucose (74-99) mg/dL POC Glucose (mg/dL) 111 H 145 H 136 H (75-99) mg/dL Magnesium (1.6-2.3) mg/dL AST (14-36) U/L Total Protein (6.3-8.2) g/dL Albumin (3.5-5.0) g/dL Urine Appearance (Clear) Urine Protein (Negative) Urine RBC (0-5) /hpf Ur Squamous Epith Cells (0-4) /hpf Urine Bacteria (None) /hpf Urine Mucus (None) /hpf 12/04/17 12/04/17 12/04/17 Range/Units 04:10 04:10 04:10 WBC 23.8 H (3.8-10.6) k/uL RBC 3.36 L (3.80-5.40) m/uL Hgb 9.1 L (11.4-16.0) gm/dL Hct 30.4 L (34.0-46.0) % MCHC 30.0 L (31.0-37.0) g/dL RDW 17.2 H (11.5-15.5) % Neutrophils # 22.4 H (1.3-7.7) k/uL Lymphocytes # 0.4 L (1.0-4.8) k/uL INR 1.3 H (<1.2) Carbon Dioxide 34 H (22-30) mmol/L BUN 48 H (7-17) mg/dL Glucose 118 H (74-99) mg/dL POC Glucose (mg/dL) (75-99) mg/dL Magnesium 2.4 H (1.6-2.3) mg/dL AST 50 H (14-36) U/L Total Protein 5.6 L (6.3-8.2) g/dL Albumin 2.8 L (3.5-5.0) g/dL Urine Appearance (Clear) Urine Protein (Negative) Urine RBC (0-5) /hpf Ur Squamous Epith Cells (0-4) /hpf Urine Bacteria (None) /hpf Urine Mucus (None) /hpf 12/04/17 12/04/17 Range/Units 06:52 10:00 WBC (3.8-10.6) k/uL RBC (3.80-5.40) m/uL Hgb (11.4-16.0) gm/dL Hct (34.0-46.0) % MCHC (31.0-37.0) g/dL RDW (11.5-15.5) % Neutrophils # (1.3-7.7) k/uL Lymphocytes # (1.0-4.8) k/uL INR (<1.2) Carbon Dioxide (22-30) mmol/L BUN (7-17) mg/dL Glucose (74-99) mg/dL POC Glucose (mg/dL) 123 H (75-99) mg/dL Magnesium (1.6-2.3) mg/dL AST (14-36) U/L Total Protein (6.3-8.2) g/dL Albumin (3.5-5.0) g/dL Urine Appearance Cloudy H (Clear) Urine Protein Trace H (Negative) Urine RBC 7 H (0-5) /hpf Ur Squamous Epith Cells 8 H (0-4) /hpf Urine Bacteria Occasional H (None) /hpf Urine Mucus Rare H (None) /hpf - Imaging and Cardiology Chest x-ray: report reviewed, image reviewed Assessment and Plan (1) Acute blood loss anemia Current Visit: Yes Status: Acute Code(s): D62 - ACUTE POSTHEMORRHAGIC ANEMIA SNOMED Code(s): 796173236 (2) CAD (coronary artery disease) Current Visit: Yes Status: Chronic Code(s): I25.10 - ATHSCL HEART DISEASE OF [place] CORONARY ARTERY W/O ANG PCTRS SNOMED Code(s): 68163322 (3) Hyperlipidemia Current Visit: Yes Status: Chronic Code(s): E78.5 - HYPERLIPIDEMIA, UNSPECIFIED SNOMED Code(s): 36107439 (4) Hypertension Current Visit: Yes Status: Chronic Code(s): I10 - ESSENTIAL (PRIMARY) HYPERTENSION SNOMED Code(s): 80699683 (5) Severe mitral regurgitation Current Visit: Yes Status: Chronic Code(s): I34.0 - NONRHEUMATIC MITRAL ( VALVE) INSUFFICIENCY SNOMED Code(s): 88680267 (6) Stenosis of left subclavian artery Current Visit: Yes Status: Chronic Code(s): I77.1 - STRICTURE OF ARTERY SNOMED Code(s): 760066478 (7) Paroxysmal atrial fibrillation Current Visit: No Status: Resolved Code(s): I48.0 - PAROXYSMAL ATRIAL FIBRILLATION SNOMED Code(s): 940567234 (8) History of GI bleed Current Visit: No Status: Resolved Code(s): Z87.19 - PERSONAL HISTORY OF OTHER DISEASES OF THE DIGESTIVE SYSTEM SNOMED Code(s): 730169006 (9) Family history of coronary artery disease Current Visit: Yes Status: Chronic Code(s): Z82.49 - FAMILY HX OF ISCHEM HEART DIS AND OTH DIS OF THE CIRC SYS SNOMED Code(s): 908800603 Plan: 1. Continue baby aspirin, statin, beta krunal, Arixtra. Will increase beta krunal therapy as tolerated. HIT panel negative. 2. Continue amiodarone for history of paroxysmal atrial fibrillation on home amiodarone. 3. Will give digoxin 250 g IV push 1 today. Will give Lasix 60 mg IV push 1 today. 4. Wean O2 as tolerated. BiPAP management per pulmonology. Encourage incentive spirometry use 10x every hour. 5. Urinalysis, urine culture sent secondary to leukocytosis. Patient has remained afebrile. 6. Will monitor labs, chest x-rays. 7. Bronchodilators, steroids per pulmonology. 8. Daily Coumadin dosing per PT and INR. Cardiothoracic surgery will manage dosing while she is inpatient, outpatient management to be done by cardiology. 9. GI/DVT prophylaxis. 10. Increase activity as tolerated. PT/OT/cardiac rehab following. 11. More recommendations as patient progresses. Time with Patient: Greater than 30
[2017-12-04] MEDS: SODIUM CHLORIDE 0.45% 1,000 ML IV SCH (11:28)
--- NOTE | 2017-12-04 11:29 | P.PN ---
Subjective Progress Note Date: 12/04/17 Principal diagnosis: Status post one-vessel bypass grafting and mitral valve replacement Progress note dated 11/29/2017 This is a 67-year-old female status post one-vessel bypass grafting and mitral valve replacement. She apparently had surgery on the . Today is postop day #3. The patient currently remains on the mechanical ventilator. Her vent settings are the assist control mode rate of 1210 of I am is 550 FiO2 50% PEEP of 5. Arterial blood gases show a PaO2 of 135 a PaCO2 of 36 and a pH of 7.47. I'm to make a few changes including bumping the rate up from 12 to 20, and decreasing the tidal volume from 550 down to 400, and dropping the FiO2 from 50- 40%. The patient may not be weaned of old low because she remains on insulin drip at 1 unit per hour, Primacor 0.2 mics per kilogram per minute, norepinephrine at 2 mics per minute, half normal saline at 30 mL an hour and propofol at 25 g kilogram per minute. Chest x-rays consistent with fluid overload but bibasilar infiltrates and small effusions and microbiology is negative. The rest of the labs medications and x-rays are all reviewed. Progress note dated 11/30/2017 This is a 67-year-old female status post one-vessel bypass grafting and mitral valve replacement. She had surgery on the . She is postop day #4. She remains on mechanical ventilator. Yesterday, her chest x-ray showed evidence of fluid overload. She did get some diuretics. Today's chest x-ray still shows evidence of fluid overload although it might be slightly improved. She's currently still on the mechanical ventilator on the assist control mode, rate of 26, tidal volume 400, PEEP of 8, FiO2 40%. The patient's arterial blood gases show a PaO2 of 94 and pH 7.46 in a PaCO2 of 41. The patient will get a daily eruption of sedation and a spontaneous breathing trial. The patient remains on norepinephrine at 3 mcg/m, propofol at 30 mics per kilogram per minute, Primacor 0.2 mics per kilogram per minute, half normal saline IV at 15 mL an hour and vital 1.2 at 60 with a goal of 60 mL an hour. The patient failed her spontaneous breathing trial yesterday very quickly, and afterwards, she became dyssynchronous with the ventilator and I had to bump up the PEEP level to 8 and increase her respiratory rate to 26. We also dropped the tidal volume down to 400. She is much more in synchrony today. Progress note dated 12/01/2017 This is a 67-year-old female who is postop day #5, status post one-vessel bypass grafting and mitral valve replacement. She also has a history of postoperative respiratory failure with failure to wean. She was extubated yesterday though. Chest x-ray has evidence of fluid overload which actually is improved. In addition, the patient had acute blood loss anemia requiring blood transfusion postsurgically, hypertension severe mitral regurgitation left subclavian stenosis paroxysmal atrial fibrillation GI bleed and obesity. Yesterday, post extubation we gave the patient 1 shot of Solu-Medrol 60 mg IV push and also put her on BiPAP at 14/5 and 40%. Chest x-ray does show improvement. Today her hemoglobin is below 7 and she'll receive 1 unit of blood followed by some Lasix IV. In addition, I may add on some IV site Medrol and a smaller dose than normal and also some Pulmicort 1 mg twice a day. Progress note dated 12/02/2017 67-year-old female who is postop day #6 status post single-vessel bypass grafting and mitral valve replacement. The patient has been doing very well the last day and a half to 2 days. She has a history of postoperative respiratory failure and initially, failure to wean. She was extubated 2 days ago. She has had to use of BiPAP on and off since that time. She did receive 1 unit of PRBCs yesterday followed by some Lasix 40 mg IV push. Her chest x- ray my opinion still so-so some fluid overload with a small pool of pleural effusion. Other than that, the patient seemed be doing relatively well. She has a history of hypertension severe mitral regurgitation blood loss anemia following surgery left subclavian stenosis paroxysmal atrial fibrillation GI bleed and obesity. This morning, she'll come off the BiPAP and go back to nasal O2. She prefers a nasal O2 over the BiPAP device. She may have had an episode of aspiration last night. Speech pathology was consulted. In addition , I did check for a DVT in the right upper extremity and the Doppler was negative. Progress note dated 12/03/2017 67-year-old female postop day #7, status post single-vessel bypass grafting and mitral valve replacement. The patient has been doing relatively well although this morning she was a bit more short of breath. Chest x-ray does show some fluid overload. She's been on and off of BiPAP. This morning she was on O2 nasal cannula at 3 L. The cardiothoracic practitioner thought she was a bit more short of breath I went and saw her. I looked at her chest x-ray. We asked her to go back on BiPAP at 14 and 5 and 40% and we also gave her Lasix 60 mg IV push. She seemed be doing a lot better now. She's not receiving any IV fluids. Chest x-ray does show fluid overload. Again the Lasix was given this morning. She was a bit to This morning. Breathing about 25 times a minute. No swapnil distress. In addition, she has a history of hypertension severe mitral regurgitation blood loss anemia following her open heart surgery, left subclavian artery stenosis paroxysmal atrial fibrillation GI bleed and obesity. Progress note dated 12/04/2017 67-year-old female, postop day #8, status post single-vessel bypass grafting and mitral valve replacement. The patient's overall situation is been reasonable. She seemed to do do better while she is on BiPAP therapy. When she is a bit more short of breath, she does poorly when she's not on BiPAP. Chest x-ray shows some fluid overload. She has some cephalization to the upper lobes. In addition, she is either consolidation atelectasis or infiltrates in the lower lobes. In addition, probably has some pleural effusions bilaterally. Currently she is on 7 L high flow. She's not receiving any IV fluids. When she is on BiPAP, she is on settings of 14 and 5 and 40%. She did receive some Lopressor for atrial fibrillation with RVR. Cardiothoracic surgery ask about antibiotics for possible pneumonia. Is not unreasonable to add some antibiotics to her regimen. She may have some pneumonia hiding in the lung spaces bilaterally. She isn't producing any phlegm. There's been no fever or chills. Other than that, she is doing reasonably well. Labs x-rays a medications are all reviewed. Objective - Vital Signs Vital signs: Vital Signs Temp 99.2 F 12/04/17 08:00 Pulse 147 H 12/04/17 10:00 Resp 19 12/04/17 10:00 BP 142/82 12/04/17 10:00 Pulse Ox 98 12/04/17 10:00 Intake & Output 12/03/17 12/04/17 12/04/17 18:59 06:59 18:59 Intake Total 640 600 385 Output Total 801 0 150 Balance -161 600 235 Weight 106 kg 105.2 kg Intake: Oral 640 600 385 Output: Urine 801 0 150 Other: Voiding Method Bedpan Bedpan # Voids 0 1 ABP, PAP, CO, CI - Last Documented Arterial Blood Pressure 110/60 Pulmonary Artery Pressure 38/33 Cardiac Output 5.8 Cardiac Index 2.9 - Exam No acute distress, patient is on BiPAP. BiPAP settings are 14/5 and 40%. NG tube and endotracheal tube removed yesterday. HEENT examination is grossly unremarkable. Mucous membranes are moist. No oral lesions. Neck supple. Full range of motion. No adenopathy thyromegaly or neck vein distention. Cardiovascular examination reveals regular rhythm rate. S1-S2 normal. No S3 or S4. No discernible murmur noted. Lungs reveal very coarse bilateral breath sounds. Her sounds are equal bilaterally. No wheezes. A few scattered crackles. Abdomen soft bowel sounds are heard. No masses or tenderness. Extremities are intact. No cyanosis or clubbing. There is slight edema. Skin is without rash or lesion. Neurologic examination is brief but nonfocal. - Labs CBC & Chem 7: 12/04/17 04:10 12/04/17 04:10 Labs: Abnormal Lab Results - Last 24 Hours (Table) 12/03/17 12/03/17 12/03/17 Range/Units 12:02 17:01 20:19 WBC (3.8-10.6) k/uL RBC (3.80-5.40) m/uL Hgb (11.4-16.0) gm/dL Hct (34.0-46.0) % MCHC (31.0-37.0) g/dL RDW (11.5-15.5) % Neutrophils # (1.3-7.7) k/uL Lymphocytes # (1.0-4.8) k/uL INR (<1.2) Carbon Dioxide (22-30) mmol/L BUN (7-17) mg/dL Glucose (74-99) mg/dL POC Glucose (mg/dL) 111 H 145 H 136 H (75-99) mg/dL Magnesium (1.6-2.3) mg/dL AST (14-36) U/L Total Protein (6.3-8.2) g/dL Albumin (3.5-5.0) g/dL Urine Appearance (Clear) Urine Protein (Negative) Urine RBC (0-5) /hpf Ur Squamous Epith Cells (0-4) /hpf Urine Bacteria (None) /hpf Urine Mucus (None) /hpf 12/04/17 12/04/17 12/04/17 Range/Units 04:10 04:10 04:10 WBC 23.8 H (3.8-10.6) k/uL RBC 3.36 L (3.80-5.40) m/uL Hgb 9.1 L (11.4-16.0) gm/dL Hct 30.4 L (34.0-46.0) % MCHC 30.0 L (31.0-37.0) g/dL RDW 17.2 H (11.5-15.5) % Neutrophils # 22.4 H (1.3-7.7) k/uL Lymphocytes # 0.4 L (1.0-4.8) k/uL INR 1.3 H (<1.2) Carbon Dioxide 34 H (22-30) mmol/L BUN 48 H (7-17) mg/dL Glucose 118 H (74-99) mg/dL POC Glucose (mg/dL) (75-99) mg/dL Magnesium 2.4 H (1.6-2.3) mg/dL AST 50 H (14-36) U/L Total Protein 5.6 L (6.3-8.2) g/dL Albumin 2.8 L (3.5-5.0) g/dL Urine Appearance (Clear) Urine Protein (Negative) Urine RBC (0-5) /hpf Ur Squamous Epith Cells (0-4) /hpf Urine Bacteria (None) /hpf Urine Mucus (None) /hpf 12/04/17 12/04/17 Range/Units 06:52 10:00 WBC (3.8-10.6) k/uL RBC (3.80-5.40) m/uL Hgb (11.4-16.0) gm/dL Hct (34.0-46.0) % MCHC (31.0-37.0) g/dL RDW (11.5-15.5) % Neutrophils # (1.3-7.7) k/uL Lymphocytes # (1.0-4.8) k/uL INR (<1.2) Carbon Dioxide (22-30) mmol/L BUN (7-17) mg/dL Glucose (74-99) mg/dL POC Glucose (mg/dL) 123 H (75-99) mg/dL Magnesium (1.6-2.3) mg/dL AST (14-36) U/L Total Protein (6.3-8.2) g/dL Albumin (3.5-5.0) g/dL Urine Appearance Cloudy H (Clear) Urine Protein Trace H (Negative) Urine RBC 7 H (0-5) /hpf Ur Squamous Epith Cells 8 H (0-4) /hpf Urine Bacteria Occasional H (None) /hpf Urine Mucus Rare H (None) /hpf Assessment and Plan Assessment: Assessment Postop day #6, status post one-vessel bypass grafting and mitral valve replacement Postoperative respiratory failure with failure to wean, with extubation occurring on 11/30/2017 Chest x-ray evidence of fluid overload Acute blood loss anemia requiring blood transfusion History of hypertension History of severe mitral regurgitation History of left subclavian stenosis Paroxysmal atrial fibrillation History of GI bleed Obesity Possible aspiration with aspiration pneumonia Plan: Plan dated 11/29/2017 I will make some vent changes today including repeat increasing the rate from 12 -20, dropping the time of I'm down from 550 mL down to 400 mL and also reducing the FiO2 40%. We'll see if we can wean her off the norepinephrine holding propofol and do a daily eruption of sedation to evaluate for spontaneous breathing trial. Microbiology is negative. Labs x-rays and medications all reviewed. Prognosis is guarded. Additional recommendations and suggestions are forthcoming. I believe she would benefit from some diuretics. Blood gases are reviewed. Plan dated 11/30/2017 The patient will again have a daily eruption of sedation with a spontaneous breathing trial. She still remains on a number of different IV medications including norepinephrine, fall, Primacor. Arterial blood gases today are very reasonable. Her vent settings were adjusted yesterday. She's getting nourishment. We'll continue to follow closely. Labs x-rays a medications are reviewed. Hopeful improvement in the next day or so and eventual extubation. Plan dated 11/23/2017 The patient seems to be doing a bit better. Her chest x-ray certainly improved. She'll receive 1 unit of blood. She feels better. She still on BiPAP. She has significant edema throughout. Chest x-ray is improved. I do agree with 1 unit of blood followed by Lasix. We'll continue to follow closely. Medications x-rays and labs are reviewed. Plan dated 12/02/2017 The patient will come off the BiPAP morning go back on nasal O2. Speech pathology was consulted. Chest x-ray looks about the same or slightly better. Still showing a bit of fluid overload. In addition, a Doppler of the right upper extremity was negative for DVT. The patient otherwise seems be doing reasonably well. We'll continue to follow. She is on Primacor and 0.2 mics per kilogram per minute and a half normal saline IV at KVO. BiPAP settings are 14/5 and 40%. Critical care time 34 minutes The patient is doing better after the BiPAP was placed on her. The patient also received Lasix 60 mg IV push. The patient's chest x-ray labs and medications are all reviewed. She's not receiving any additional fluid. We'll continue to follow. Prognosis is guarded. Critical care time 34 minutes. Plan dated 12/04/2017 The patient seemed be doing about the same as she was yesterday. Chest x-ray, in my opinion still shows evidence of fluid overload. She has cephalization and bilateral pleural effusions. Is a possibility she could have pneumonia. She's not producing any phlegm. She's been afebrile. I will add some Zosyn to her regimen. It certainly empiric. She should spend some time on BiPAP as well as a nasal O2. She seemed to do better on the BiPAP at 14 and 5 and 40%. She did have to receive some Lopressor for atrial fibrillation and RVR. I'm sure that's contributing to her shortness of breath as well. She does not have a lot of reserve. Prognosis is guarded. Time with Patient: Greater than 30
[2017-12-04 11:43] LABS: Glucose,Whole Blood 112 mg/dL (75-99)
[2017-12-04] MEDS: HYDROcodone/APAP 5-325MG 1 EACH TAB PO PRN ×3 (11:48→23:50)
--- NOTE | 2017-12-04 11:57 | PN ---
PROGRESS NOTE This patient's medical records reviewed. Condition discussed with the nurse. Patient is status post mitral valve replacement. Patient is in atrial flutter with intermittent fast ventricular rate with activities. Patient is mildly short of breath. Chest x-ray shows improvement in the bibasilar infiltrate. Patient's blood pressure is 142/80 mmHg. Heart rate now is 90-100 per minute. First and second heart sounds are normal. Lungs reveal a few scattered wheezes. Patient's hemoglobin is 9.1. Electrolytes are normal. Patient has been started on Coumadin yesterday. We will increase the dose of metoprolol to 25 mg q.6 hourly, continue amiodarone. MMODL / IJN: [id number] /
[2017-12-04] MEDS: PIPERACILLIN-TAZOBACTAM 3.375 GM in DEXTROSE/WATER 1 50ML.BAG IVPB SCH ×2 (17:46→23:50)
[2017-12-04 17:51] LABS: Glucose,Whole Blood 146 mg/dL (75-99)
[2017-12-04] MEDS ORDERED: WARFARIN 5 MG TAB PO ONE (18:00)
--- NOTE | 2017-12-04 18:33 | PN ---
PROGRESS NOTE DATE OF SERVICE: 12/04/2017 This 67-year-old woman was admitted with CAD, CABG, mitral valve replacement, is being closely monitored. The patient has some respiratory difficulty. Patient is on BiPAP and high-flow oxygen periodically. The patient is rather drowsy at this time. Patient is working on [[employer] On exam, the pulse is 112, blood pressure 97/52, respiration 15, temperature 98.2, pulse ox 98% on 40% BiPAP. HEENT: Conjunctivae normal. NECK: No jugular venous distension. CARDIOVASCULAR: S1, S2, muffled. RESPIRATORY: Breath sounds diminished at the bases, a few scattered rhonchi, no crackles. Abdomen is soft, nontender. LEGS: No edema, no swelling. NERVOUS SYSTEM: No focal deficits. LABS: WBC 23.3, hemoglobin is 9.1, magnesium is 2.4. The chest x-ray which is reviewed by me personally includes atelectasis. ASSESSMENT: 1. Status post coronary artery bypass graft and mitral valve replacement. 2. Acute blood loss anemia with massive retention postoperatively. 3. History of gastrointestinal bleed. 4. Hypertension. 5. Left subclavian stenosis. 6. Paroxysmal atrial fibrillation. 7. Possible acute hypoxic respiratory failure status post-ventilator dependent, currently with intermittent use of BiPAP. 8. Obesity with body mass index of 41.6. 9. Status post PICC line placement. 10.Right upper extremity deep venous thrombosis, ruled out. RECOMMENDATION: Recommend to continue with the current management, continue with the monitoring and symptomatic treatment. Otherwise at this time, I would recommend continue the current medication. Prognosis guarded. Further recommendations to follow. MMODL / IJN: [id number] /
[2017-12-04 20:16] LABS: Glucose,Whole Blood 137 mg/dL (75-99)
[2017-12-04] MEDS: SENNOSIDES-DOCUSATE SODIUM 1 EACH TAB PO SCH (20:23)
[2017-12-05 04:53] LABS: INR 1.6 (<1.2); Prothrombin Time 14.8 sec (9.0-12.0)
[2017-12-05 04:54] LABS: Anisocytosis Slight; HCT 30.9 % (34.0-46.0); HGB 9.1 gm/dL (11.4-16.0); Hypochromasia Marked; MCH 26.6 pg (25.0-35.0); MCHC 29.4 g/dL (31.0-37.0); MCV 90.7 fL (80.0-100.0); Mean Platelet Volume 7.6; Platelet Count 287 k/uL (150-450); Poikilocytosis Moderate; RBC 3.41 m/uL (3.80-5.40); RDW 17.3 % (11.5-15.5)
[2017-12-05 05:05] LABS: ALT 34 U/L (9-52); AST 42 U/L (14-36); Albumin 2.5 g/dL (3.5-5.0); Alkaline Phosphatase 80 U/L (38-126); Anion Gap 6 mmol/L; Blood Urea Nitrogen 46 mg/dL (7-17); Calcium 8.6 mg/dL (8.4-10.2); Carbon Dioxide 34 mmol/L (22-30); Chloride 99 mmol/L (98-107); Glucose 115 mg/dL (74-99); Magnesium 2.3 mg/dL (1.6-2.3); Phosphorus 3.4 mg/dL (2.5-4.5); Potassium 4.1 mmol/L (3.5-5.1); Sodium 139 mmol/L (137-145); Total Protein 5.4 g/dL (6.3-8.2)
[2017-12-05 05:07] LABS: WBC 27.5 k/uL (3.8-10.6)
[2017-12-05 05:50] LABS: Lymphocytes # (M) 0.28 k/uL (1.0-4.8); Monocytes # (M) 0.28 k/uL (0-1.0); Neutrophils # (M) 26.95 k/uL (1.3-7.7); Neutrophils % (M) 98 %; Nucleated Red Blood Cells 0 /100 WBC (0-0); Total Cells Counted 100
--- NOTE | 2017-12-05 07:17 | XR ---
EXAMINATION TYPE: XR chest 1V portable DATE OF EXAM: 12/05/2017 COMPARISON: NONE INDICATION: Postop mitral valve replacement TECHNIQUE: Single frontal view of the chest is obtained. FINDINGS: The heart size is enlarged. The pulmonary vasculature is normal. Mild bibasilar atelectasis may be present. Minimal pleural effusions are not excluded. Sternotomy wires are present from cardiac valve surgery. IMPRESSION: 1. Cardiomegaly. 2. Subsegmental atelectasis versus minimal bilateral pleural effusions.
[2017-12-05 07:28] LABS: Glucose,Whole Blood 121 mg/dL (75-99)
[2017-12-05] MEDS: HYDROcodone/APAP 5-325MG 1 EACH TAB PO PRN ×3 (08:09→20:12)
[2017-12-05] MEDS ORDERED: FUROSEMIDE 10 MG/ML 10 ML VIAL IV STA (08:26)
[2017-12-05] MEDS: methylPREDNISolone SOD SUCCI 40 MG/ML 1 ML VIAL IV SCH ×3 (08:35→23:18)
[2017-12-05] MEDS: PIPERACILLIN-TAZOBACTAM 3.375 GM in DEXTROSE/WATER 1 50ML.BAG IVPB SCH ×3 (08:35→23:18)
[2017-12-05] MEDS: FONDAPARINUX 2.5 MG/0.5 ML SYRINGE SQ SCH (08:35)
[2017-12-05] MEDS: AMIODARONE 200 MG TAB PO SCH ×2 (08:36→20:12)
[2017-12-05] MEDS: METOPROLOL TARTRATE 25 MG TAB PO SCH ×3 (08:36→23:19)
[2017-12-05] MEDS: ASPIRIN 81 MG PO SCH (08:36)
[2017-12-05] MEDS: PANTOPRAZOLE 40 MG TABLET PO SCH (08:37)
[2017-12-05] MEDS: ATORVASTATIN 40 MG TAB PO SCH (08:37)
[2017-12-05] MEDS: INSULIN ASPART 100 UNIT/ML 1 ML 10 ML VIAL SQ SCH ×4 (08:37→20:13)
[2017-12-05] MEDS: IPRATROPIUM-ALBUTEROL 3 ML NEB INHALATION SCH ×4 (09:07→20:44)
[2017-12-05] MEDS: BUDESONIDE 1 MG/2 ML NEBU INHALATION SCH ×2 (09:07→21:06)
[2017-12-05] MEDS ORDERED: DIGOXIN 250 MCG/ML 2 ML AMP IVP ONE (10:06)
--- NOTE | 2017-12-05 10:15 | US ---
EXAMINATION TYPE: US chest DATE OF EXAM: 12/05/2017 COMPARISON: NONE CLINICAL HISTORY: Bilateral pleural effusions. Bilateral pleural effusions EXAM MEASUREMENTS: Right Pleural Effusion fluid pocket: 7.3 cm Right skin to fluid thickness: 4.4 cm Left Pleural Effusion fluid pocket: 3.3 cm Left skin to fluid thickness: 2.2 cm Right side marked for possible thoracentesis outside the dept. Left side marked for possible thoracentesis outside the dept. Pulmonologists are able to review the images in the patient?s EMR. IMPRESSIONS: 1. Bilateral pleural effusions, larger on the right
--- NOTE | 2017-12-05 10:55 | P.PN ---
Subjective Progress Note Date: 12/05/17 Principal diagnosis: Severe mitral regurgitation. Coronary artery disease. Paroxysmal atrial fibrillation on Coumadin for anticoagulation. Recent hospitalization for lower GI bleed, duodenal ulcer. History of left subclavian stenosis with stent placement 2014 with recent discovery of critical re-in-stent stenosis. Previous tobacco dependence with preoperative FEV1 60% of predicted. Hypertension. Hyperlipidemia. Gallbladder disease. Family history of heart disease. Preoperative nasal swab positive for MRSA. Preoperative anemia. POD #10 mitral valve replacement using a 25 mm Ribera bioprosthetic tissue valve. Coronary artery bypass grafting 1, reverse saphenous vein graft to the obtuse marginal artery. Maze procedure. Endoscopic harvesting of the right greater saphenous vein. Epi-aortic ultrasound. Intraoperative transesophageal echocardiogram. Ligation of the left atrial appendage using a 40 mm AtriClip. Intraoperative left ventricular wall tear, an unexpected but potential outcome of surgery Acute blood loss anemia, and expected outcome given patient's preoperative anemia and intraoperative bleeding. Postoperative prolonged mechanical ventilation secondary to hemodynamic instability, and unexpected but potential outcome of surgery given the extensive nature of her perioperative course The patient's currently sitting up in bed in no acute distress. Continues to use BiPAP at night, alternates between high flow nasal cannula and BiPAP during the day. States pain is well-controlled, complains of occasional shortness of breath. States she is feeling a little better everyday. Objective - Vital Signs Vital signs: Vital Signs Temp 98.1 F 12/05/17 08:00 Pulse 116 H 12/05/17 10:00 Resp 22 12/05/17 10:00 BP 96/48 12/05/17 10:00 Pulse Ox 98 12/05/17 10:00 Intake & Output 12/04/17 12/05/17 12/05/17 18:59 06:59 18:59 Intake Total 1245 410 570 Output Total 1480 550 450 Balance -235 -140 120 Weight 104.6 kg Intake: IV 50 50 Piperacillin-Tazobactam 3 50 50 .375 gm In Dextrose/Water 1 50ml.bag @ 12.5 mls/hr IVPB Q8HR [facility] Rx#: [id number] Oral 1245 360 520 Output: Urine 1480 550 450 Other: Voiding Method Bedpan Bedpan # Bowel Movements 1 ABP, PAP, CO, CI - Last Documented Arterial Blood Pressure 110/60 Pulmonary Artery Pressure 38/33 Cardiac Output 5.8 Cardiac Index 2.9 - Constitutional General appearance: Present: cooperative, no acute distress, obese - Respiratory Details: Lungs sounds diminished with coarse breath sounds in the bases. Respirations even, nonlabored. Currently on 5 L high flow nasal cannula with oxygen saturation 97%. Able to achieve 500 mL on her incentive spirometry. - Cardiovascular Details: S1, S2 present. Irregular rate and rhythm, atrial flutter on telemetry. Sternum stable. Palpable peripheral pulses bilaterally. Generalized edema still present. No calf pain or tenderness noted. Heart hugger, antiembolism stockings, SCDs present. Left arm PICC line in place. - Gastrointestinal Gastrointestinal Comment(s): Abdomen soft, nontender, nondistended. Active bowel sounds 4 quadrants. Tolerating diet. Positive bowel movement. - Genitourinary Genitourinary Comment(s): Continues to void clear, yellow urine. - Integumentary Integumentary Comment(s): Skin is warm and dry. Anterior chest incision well approximated, dry and intact dressing. Left lower extremity EVH site well approximated. Dressing to skinfold on her back is dry and intact. Multiple areas of ecchymosis present, which is normal given the antiplatelet, anticoagulation medication she is on. - Neurologic Neurologic: Present: CNII-XII intact - Musculoskeletal Musculoskeletal: Present: generalized weakness - Psychiatric Psychiatric: Present: A&O x's 3, appropriate affect, intact judgment & insight - Allied health notes Allied health notes reviewed: nursing - Labs CBC & Chem 7: 12/05/17 04:25 12/05/17 04:25 Labs: Abnormal Lab Results - Last 24 Hours (Table) 12/04/17 12/04/17 12/04/17 Range/Units 11:42 17:48 20:15 WBC (3.8-10.6) k/uL RBC (3.80-5.40) m/uL Hgb (11.4-16.0) gm/dL Hct (34.0-46.0) % MCHC (31.0-37.0) g/dL RDW (11.5-15.5) % Neutrophils # (Manual) (1.3-7.7) k/uL Lymphocytes # (Manual) (1.0-4.8) k/uL PT (9.0-12.0) sec INR (<1.2) Carbon Dioxide (22-30) mmol/L BUN (7-17) mg/dL Glucose (74-99) mg/dL POC Glucose (mg/dL) 112 H 146 H 137 H (75-99) mg/dL AST (14-36) U/L Total Protein (6.3-8.2) g/dL Albumin (3.5-5.0) g/dL 12/05/17 12/05/17 12/05/17 Range/Units 04:25 04:25 04:25 WBC 27.5 H* (3.8-10.6) k/uL RBC 3.41 L (3.80-5.40) m/uL Hgb 9.1 L (11.4-16.0) gm/dL Hct 30.9 L (34.0-46.0) % MCHC 29.4 L (31.0-37.0) g/dL RDW 17.3 H (11.5-15.5) % Neutrophils # (Manual) 26.95 H (1.3-7.7) k/uL Lymphocytes # (Manual) 0.28 L (1.0-4.8) k/uL PT 14.8 H (9.0-12.0) sec INR 1.6 H (<1.2) Carbon Dioxide 34 H (22-30) mmol/L BUN 46 H (7-17) mg/dL Glucose 115 H (74-99) mg/dL POC Glucose (mg/dL) (75-99) mg/dL AST 42 H (14-36) U/L Total Protein 5.4 L (6.3-8.2) g/dL Albumin 2.5 L (3.5-5.0) g/dL 12/05/17 Range/Units 07:26 WBC (3.8-10.6) k/uL RBC (3.80-5.40) m/uL Hgb (11.4-16.0) gm/dL Hct (34.0-46.0) % MCHC (31.0-37.0) g/dL RDW (11.5-15.5) % Neutrophils # (Manual) (1.3-7.7) k/uL Lymphocytes # (Manual) (1.0-4.8) k/uL PT (9.0-12.0) sec INR (<1.2) Carbon Dioxide (22-30) mmol/L BUN (7-17) mg/dL Glucose (74-99) mg/dL POC Glucose (mg/dL) 121 H (75-99) mg/dL AST (14-36) U/L Total Protein (6.3-8.2) g/dL Albumin (3.5-5.0) g/dL Microbiology - Last 24 Hours (Table) 12/04/17 10:00 Urine Culture - Preliminary Urine,Voided - Imaging and Cardiology Chest x-ray: report reviewed, image reviewed Assessment and Plan (1) Acute blood loss anemia Current Visit: Yes Status: Acute Code(s): D62 - ACUTE POSTHEMORRHAGIC ANEMIA SNOMED Code(s): 239175765 (2) CAD (coronary artery disease) Current Visit: Yes Status: Chronic Code(s): I25.10 - ATHSCL HEART DISEASE OF [place] CORONARY ARTERY W/O ANG PCTRS SNOMED Code(s): 57050095 (3) Hyperlipidemia Current Visit: Yes Status: Chronic Code(s): E78.5 - HYPERLIPIDEMIA, UNSPECIFIED SNOMED Code(s): 00558424 (4) Hypertension Current Visit: Yes Status: Chronic Code(s): I10 - ESSENTIAL (PRIMARY) HYPERTENSION SNOMED Code(s): 38050718 (5) Severe mitral regurgitation Current Visit: Yes Status: Chronic Code(s): I34.0 - NONRHEUMATIC MITRAL ( VALVE) INSUFFICIENCY SNOMED Code(s): 39665989 (6) Stenosis of left subclavian artery Current Visit: Yes Status: Chronic Code(s): I77.1 - STRICTURE OF ARTERY SNOMED Code(s): 334024520 (7) Paroxysmal atrial fibrillation Current Visit: No Status: Resolved Code(s): I48.0 - PAROXYSMAL ATRIAL FIBRILLATION SNOMED Code(s): 119140749 (8) History of GI bleed Current Visit: No Status: Resolved Code(s): Z87.19 - PERSONAL HISTORY OF OTHER DISEASES OF THE DIGESTIVE SYSTEM SNOMED Code(s): 491317478 (9) Family history of coronary artery disease Current Visit: Yes Status: Chronic Code(s): Z82.49 - FAMILY HX OF ISCHEM HEART DIS AND OTH DIS OF THE CIRC SYS SNOMED Code(s): 942587913 Plan: 1. Continue baby aspirin, statin, beta krunal, Arixtra. Will increase beta krunal therapy as tolerated. HIT panel negative. 2. Continue amiodarone for history of paroxysmal atrial fibrillation on home amiodarone. 3. Will give digoxin 250 g IV push 1 today, then start digoxin 125 g orally daily tomorrow. Will give Lasix 60 mg IV push 1 today. 4. Wean O2 as tolerated. BiPAP management per pulmonology. Encourage incentive spirometry use 10x every hour. 5. Urinalysis, urine culture sent secondary to leukocytosis. Patient has remained afebrile. Started on Zosyn per pulmonology. 6. Will monitor labs, chest x-rays. 7. Bronchodilators, steroids per pulmonology. Chest ultrasound completed per pulmonology, possible thoracentesis per pulmonology. 8. Daily Coumadin dosing per PT and INR. Cardiothoracic surgery will manage dosing while she is inpatient, outpatient management to be done by cardiology. 9. GI/DVT prophylaxis. 10. Increase activity as tolerated. PT/OT/cardiac rehab following. 11. More recommendations as patient progresses. Time with Patient: Greater than 30
--- NOTE | 2017-12-05 11:32 | P.PN ---
Subjective Progress Note Date: 12/05/17 Principal diagnosis: Status post 1 vessel bypass grafting and mitral valve replacement. Progress note dated 11/29/2017 This is a 67-year-old female status post one-vessel bypass grafting and mitral valve replacement. She apparently had surgery on the . Today is postop day #3. The patient currently remains on the mechanical ventilator. Her vent settings are the assist control mode rate of 1210 of I am is 550 FiO2 50% PEEP of 5. Arterial blood gases show a PaO2 of 135 a PaCO2 of 36 and a pH of 7.47. I'm to make a few changes including bumping the rate up from 12 to 20, and decreasing the tidal volume from 550 down to 400, and dropping the FiO2 from 50- 40%. The patient may not be weaned of old low because she remains on insulin drip at 1 unit per hour, Primacor 0.2 mics per kilogram per minute, norepinephrine at 2 mics per minute, half normal saline at 30 mL an hour and propofol at 25 g kilogram per minute. Chest x-rays consistent with fluid overload but bibasilar infiltrates and small effusions and microbiology is negative. The rest of the labs medications and x-rays are all reviewed. Progress note dated 11/30/2017 This is a 67-year-old female status post one-vessel bypass grafting and mitral valve replacement. She had surgery on the . She is postop day #4. She remains on mechanical ventilator. Yesterday, her chest x-ray showed evidence of fluid overload. She did get some diuretics. Today's chest x-ray still shows evidence of fluid overload although it might be slightly improved. She's currently still on the mechanical ventilator on the assist control mode, rate of 26, tidal volume 400, PEEP of 8, FiO2 40%. The patient's arterial blood gases show a PaO2 of 94 and pH 7.46 in a PaCO2 of 41. The patient will get a daily eruption of sedation and a spontaneous breathing trial. The patient remains on norepinephrine at 3 mcg/m, propofol at 30 mics per kilogram per minute, Primacor 0.2 mics per kilogram per minute, half normal saline IV at 15 mL an hour and vital 1.2 at 60 with a goal of 60 mL an hour. The patient failed her spontaneous breathing trial yesterday very quickly, and afterwards, she became dyssynchronous with the ventilator and I had to bump up the PEEP level to 8 and increase her respiratory rate to 26. We also dropped the tidal volume down to 400. She is much more in synchrony today. Progress note dated 12/01/2017 This is a 67-year-old female who is postop day #5, status post one-vessel bypass grafting and mitral valve replacement. She also has a history of postoperative respiratory failure with failure to wean. She was extubated yesterday though. Chest x-ray has evidence of fluid overload which actually is improved. In addition, the patient had acute blood loss anemia requiring blood transfusion postsurgically, hypertension severe mitral regurgitation left subclavian stenosis paroxysmal atrial fibrillation GI bleed and obesity. Yesterday, post extubation we gave the patient 1 shot of Solu-Medrol 60 mg IV push and also put her on BiPAP at 14/5 and 40%. Chest x-ray does show improvement. Today her hemoglobin is below 7 and she'll receive 1 unit of blood followed by some Lasix IV. In addition, I may add on some IV site Medrol and a smaller dose than normal and also some Pulmicort 1 mg twice a day. Progress note dated 12/02/2017 67-year-old female who is postop day #6 status post single-vessel bypass grafting and mitral valve replacement. The patient has been doing very well the last day and a half to 2 days. She has a history of postoperative respiratory failure and initially, failure to wean. She was extubated 2 days ago. She has had to use of BiPAP on and off since that time. She did receive 1 unit of PRBCs yesterday followed by some Lasix 40 mg IV push. Her chest x- ray my opinion still so-so some fluid overload with a small pool of pleural effusion. Other than that, the patient seemed be doing relatively well. She has a history of hypertension severe mitral regurgitation blood loss anemia following surgery left subclavian stenosis paroxysmal atrial fibrillation GI bleed and obesity. This morning, she'll come off the BiPAP and go back to nasal O2. She prefers a nasal O2 over the BiPAP device. She may have had an episode of aspiration last night. Speech pathology was consulted. In addition , I did check for a DVT in the right upper extremity and the Doppler was negative. Progress note dated 12/03/2017 67-year-old female postop day #7, status post single-vessel bypass grafting and mitral valve replacement. The patient has been doing relatively well although this morning she was a bit more short of breath. Chest x-ray does show some fluid overload. She's been on and off of BiPAP. This morning she was on O2 nasal cannula at 3 L. The cardiothoracic practitioner thought she was a bit more short of breath I went and saw her. I looked at her chest x-ray. We asked her to go back on BiPAP at 14 and 5 and 40% and we also gave her Lasix 60 mg IV push. She seemed be doing a lot better now. She's not receiving any IV fluids. Chest x-ray does show fluid overload. Again the Lasix was given this morning. She was a bit to This morning. Breathing about 25 times a minute. No swapnil distress. In addition, she has a history of hypertension severe mitral regurgitation blood loss anemia following her open heart surgery, left subclavian artery stenosis paroxysmal atrial fibrillation GI bleed and obesity. Progress note dated 12/04/2017 67-year-old female, postop day #8, status post single-vessel bypass grafting and mitral valve replacement. The patient's overall situation is been reasonable. She seemed to do do better while she is on BiPAP therapy. When she is a bit more short of breath, she does poorly when she's not on BiPAP. Chest x-ray shows some fluid overload. She has some cephalization to the upper lobes. In addition, she is either consolidation atelectasis or infiltrates in the lower lobes. In addition, probably has some pleural effusions bilaterally. Currently she is on 7 L high flow. She's not receiving any IV fluids. When she is on BiPAP, she is on settings of 14 and 5 and 40%. She did receive some Lopressor for atrial fibrillation with RVR. Cardiothoracic surgery ask about antibiotics for possible pneumonia. Is not unreasonable to add some antibiotics to her regimen. She may have some pneumonia hiding in the lung spaces bilaterally. She isn't producing any phlegm. There's been no fever or chills. Other than that, she is doing reasonably well. Labs x-rays a medications are all reviewed. Personal dated 12/05/2017 The patient is seen again today in follow-up in the intensive care unit. This is postoperative day #9. She remains quite BiPAP dependent. Settings 14/5 at 40% FiO2. She is quite short of breath with any minimal exertion. Her chest x- ray continues to show evidence of fluid volume overload with bilateral effusions right greater than left. She is status post 11 units of packed red blood cells, 4 units of fresh frozen plasma, 2 units of platelets and 1 of pheresis platelets, 20 units 20 cryoprecipitate and remains in a significant positive balance overall. He is also had ongoing issues with atrial fibrillation/flutter with rapid ventricular rates. White count 27.5. Hemoglobin 9.1. Platelet count is 287. INR 1.6. Creatinine 0.73. She remains on bronchodilators, Pulmicort inhalations, IV Solu-Medrol. Antibiotics in the form of Zosyn. She is on amiodarone, digoxin, beta blockers and warfarin. Objective - Vital Signs Vital signs: Vital Signs Temp 98.1 F 12/05/17 08:00 Pulse 116 H 12/05/17 10:00 Resp 22 12/05/17 10:00 BP 96/48 12/05/17 10:00 Pulse Ox 98 12/05/17 10:00 Intake & Output 12/04/17 12/05/17 12/05/17 18:59 06:59 18:59 Intake Total 1245 410 570 Output Total 1480 550 450 Balance -235 -140 120 Weight 104.6 kg Intake: IV 50 50 Piperacillin-Tazobactam 3 50 50 .375 gm In Dextrose/Water 1 50ml.bag @ 12.5 mls/hr IVPB Q8HR [facility] Rx#: [id number] Oral 1245 360 520 Output: Urine 1480 550 450 Other: Voiding Method Bedpan Bedpan # Bowel Movements 1 ABP, PAP, CO, CI - Last Documented Arterial Blood Pressure 110/60 Pulmonary Artery Pressure 38/33 Cardiac Output 5.8 Cardiac Index 2.9 - Exam GENERAL EXAM: Alert, dyspneic with minimal exertion. HEAD: Normocephalic. EYES: Normal reaction of pupils, equal size. NOSE: Clear with pink turbinates. THROAT: No erythema or exudates. NECK: No masses, no JVD. CHEST: No chest wall deformity. LUNGS: Equal air entry with echoes in the bilateral posterior bases CVS: S1 and S2 normal with no audible murmur, irregular rhythm. ABDOMEN: No hepatosplenomegaly, normal bowel sounds, no guarding or rigidity. SPINE: No scoliosis or deformity SKIN: No rashes CENTRAL NERVOUS SYSTEM: No focal deficits, tone is normal in all 4 extremities. EXTREMITIES: There is no peripheral edema. No clubbing, no cyanosis. Peripheral pulses are intact. - Labs CBC & Chem 7: 12/05/17 04:25 12/05/17 04:25 Labs: Abnormal Lab Results - Last 24 Hours (Table) 12/04/17 12/04/17 12/04/17 Range/Units 11:42 17:48 20:15 WBC (3.8-10.6) k/uL RBC (3.80-5.40) m/uL Hgb (11.4-16.0) gm/dL Hct (34.0-46.0) % MCHC (31.0-37.0) g/dL RDW (11.5-15.5) % Neutrophils # (Manual) (1.3-7.7) k/uL Lymphocytes # (Manual) (1.0-4.8) k/uL PT (9.0-12.0) sec INR (<1.2) Carbon Dioxide (22-30) mmol/L BUN (7-17) mg/dL Glucose (74-99) mg/dL POC Glucose (mg/dL) 112 H 146 H 137 H (75-99) mg/dL AST (14-36) U/L Total Protein (6.3-8.2) g/dL Albumin (3.5-5.0) g/dL 12/05/17 12/05/17 12/05/17 Range/Units 04:25 04:25 04:25 WBC 27.5 H* (3.8-10.6) k/uL RBC 3.41 L (3.80-5.40) m/uL Hgb 9.1 L (11.4-16.0) gm/dL Hct 30.9 L (34.0-46.0) % MCHC 29.4 L (31.0-37.0) g/dL RDW 17.3 H (11.5-15.5) % Neutrophils # (Manual) 26.95 H (1.3-7.7) k/uL Lymphocytes # (Manual) 0.28 L (1.0-4.8) k/uL PT 14.8 H (9.0-12.0) sec INR 1.6 H (<1.2) Carbon Dioxide 34 H (22-30) mmol/L BUN 46 H (7-17) mg/dL Glucose 115 H (74-99) mg/dL POC Glucose (mg/dL) (75-99) mg/dL AST 42 H (14-36) U/L Total Protein 5.4 L (6.3-8.2) g/dL Albumin 2.5 L (3.5-5.0) g/dL 12/05/17 Range/Units 07:26 WBC (3.8-10.6) k/uL RBC (3.80-5.40) m/uL Hgb (11.4-16.0) gm/dL Hct (34.0-46.0) % MCHC (31.0-37.0) g/dL RDW (11.5-15.5) % Neutrophils # (Manual) (1.3-7.7) k/uL Lymphocytes # (Manual) (1.0-4.8) k/uL PT (9.0-12.0) sec INR (<1.2) Carbon Dioxide (22-30) mmol/L BUN (7-17) mg/dL Glucose (74-99) mg/dL POC Glucose (mg/dL) 121 H (75-99) mg/dL AST (14-36) U/L Total Protein (6.3-8.2) g/dL Albumin (3.5-5.0) g/dL Microbiology - Last 24 Hours (Table) 12/04/17 10:00 Urine Culture - Preliminary Urine,Voided Assessment and Plan Assessment: Assessment Postop day #9, status post one-vessel bypass grafting and mitral valve replacement Postoperative respiratory failure with failure to wean, with extubation occurring on 11/30/2017 Chest x-ray evidence of fluid overload, bilateral pleural effusions right greater than left Acute blood loss anemia requiring blood transfusion History of hypertension History of severe mitral regurgitation History of left subclavian stenosis Paroxysmal atrial fibrillation, anticoagulated with warfarin. History of GI bleed Obesity Possible aspiration with aspiration pneumonia, currently on Zosyn. Plan: The patient was seen and evaluated by Dr. Garcia. Her chest x-ray was reviewed. We did go ahead and order an ultrasound of the bilateral chest. There is significant effusions right measuring 7.3 cm greater than left measuring 3.3 cm. She may benefit from a thoracentesis. In the interim we'll continue with her current medications. Continue BiPAP as necessary. We will continue to follow and make further recommendations based on her clinical status. Critical care time 36 minutes. I, the cosigning physician, performed a history & physical examination of the patient. Lungs sounds have crackles in the bilateral posterior bases more so on the right. Maintaining good O2 saturations in the 90s on 5 L high flow nasal cannula alternating with BiPAP 14/5 and 40% FiO2.. I discussed the assessment and plan of care with my nurse practitioner, Tiffany Iniguez. I attest to the above note as dictated by her. Time with Patient: Greater than 30
--- NOTE | 2017-12-05 11:58 | PN ---
PROGRESS NOTE This patient is status post mitral valve replacement. The patient remains fairly stable. Most of the time the heart remains fairly well controlled. With the activities, the heart rate goes up. She is not in any significant respiratory distress. The chest ultrasound shows moderate to large pleural effusion on the right side. Blood pressure is 100/48 mmHg. Heart rate at present is 80. First and second heart sounds are normal. Lungs examination reveals bilateral diminished air entry. IMPRESSION: Atrial flutter with intermittent rapid ventricular rate. We will continue the current medications. Patient may need probably thoracentesis. MMODL / IJN: [id number] /
[2017-12-05 12:38] LABS: Glucose,Whole Blood 108 mg/dL (75-99)
[2017-12-05] MEDS ORDERED: WARFARIN 5 MG TAB PO ONE (18:00)
[2017-12-05] MEDS ORDERED: METOPROLOL TARTRATE 5 MG/5 ML VIAL IVP ONE (18:01)
--- NOTE | 2017-12-05 18:49 | PN ---
PROGRESS NOTE DATE OF SERVICE: 12/05/2017 The 67-year-old woman who was admitted CAD, CABG also has significant respiratory failure. The patient is on and off BiPAP at this time. The patient is also on high- flow oxygen. Multiple consultants including Cardiothoracic Surgery, Pulmonary and Cardiology are seeing the patient. The most recent chest x-ray showed cardiomegaly and possible bilateral pleural effusion also. Chest ultrasound was done, which showed enlargement of the right pleural effusion. No chest pain. No palpitations. PAST MEDICAL HISTORY: Reviewed. REVIEW OF SYSTEMS: Patient on mechanical ventilation and patient is sedated. CURRENT MEDICATIONS: 1. [place] 5 mg q.4h p.r.n. 2. DuoNeb q.i.d. 3. Cordarone 200 mg p.o. b.i.d. 4. Aspirin 81 mg daily. 5. Lipitor 40 mg. 6. Cepacol. 7. Dulcolax. 8. Pulmicort. 9. Lanoxin 125. 10.Ranexa. 11.Solu-Medrol 30 IV q.8h. 12.Replacement protocols. 13.Protonix. 14.Coumadin. PHYSICAL EXAM: Patient is alert, orient x3. The pulse is 119, blood pressure is 92/49, respiration 18, temperature normal, pulse ox 90% on 5 L, high-flow oxygen. The BiPAP settings are noted. HEENT: Conjunctivae normal. Oral mucosa moist. NECK: No jugular venous distention. No carotid bruit. No lymph node enlargement. CARDIOVASCULAR: S1, S2. RESPIRATORY: Breath sounds diminished in the bases. A few scattered rhonchi and crackles. ABDOMEN: Soft, nontender. No mass palpable. LEGS: No edema. NERVOUS SYSTEM: Higher function as mentioned. Moves all 4 limbs. No focal deficits. LYMPHATICS: No lymphadenopathy in the neck, axillae, groin. SKIN: No ulcers, rashes, bleeding. LABS: WBC 27.2, hemoglobin 10.1. ASSESSMENT: 1. Status post coronary artery disease, CABG, and mitral valve replacement. 2. Acute blood loss anemia with transfusion postoperatively. 3. Bilateral pleural effusion. 4. History of gastrointestinal bleed. 5. Hypertension. 6. Left subclavian stenosis. 7. Paroxysmal atrial fibrillation. 8. Acute hypoxic respiratory failure status post BiPAP. 9. Obesity with body mass index 41.6. 10.Status post PICC line placement. 11.Right lower extremity DVT ruled out. RECOMMENDATIONS AND DISCUSSION I recommend to continue current management, continue with symptomatic treatment. At this time I would recommend to continue to monitor the patient closely. See orders. Guarded prognosis. Further recommendations to follow. One dose of Lasix will be given. Monitor fluid and electrolyte balance closely. MMODL / IJN: [id number] /
[2017-12-05 18:54] LABS: Glucose,Whole Blood 172 mg/dL (75-99)
[2017-12-05] MEDS: SENNOSIDES-DOCUSATE SODIUM 1 EACH TAB PO SCH (20:12)
[2017-12-05 20:14] LABS: Glucose,Whole Blood 130 mg/dL (75-99)
[2017-12-06 05:54] LABS: Anisocytosis Slight; Basophils % (A) 0 %; Eosinophils # (A) 0.1 k/uL (0-0.7); Eosinophils % (A) 0 %; HCT 31.6 % (34.0-46.0); HGB 9.2 gm/dL (11.4-16.0); Hypochromasia Marked; Lymphocytes # (A) 0.3 k/uL (1.0-4.8); Lymphocytes % (A) 1 %; MCH 26.6 pg (25.0-35.0); MCHC 29.2 g/dL (31.0-37.0); MCV 91.1 fL (80.0-100.0); Mean Platelet Volume 7.5; Monocytes # (A) 0.5 k/uL (0-1.0); Monocytes % (A) 2 %; Neutrophils # (A) 21.7 k/uL (1.3-7.7); Neutrophils % (A) 96 %; Platelet Count 330 k/uL (150-450); Poikilocytosis Moderate; RBC 3.47 m/uL (3.80-5.40); RDW 17.4 % (11.5-15.5); WBC 22.6 k/uL (3.8-10.6)
[2017-12-06 06:08] LABS: ALT 40 U/L (9-52); AST 46 U/L (14-36); Albumin 2.5 g/dL (3.5-5.0); Alkaline Phosphatase 78 U/L (38-126); Anion Gap 6 mmol/L; Blood Urea Nitrogen 49 mg/dL (7-17); Calcium 8.5 mg/dL (8.4-10.2); Carbon Dioxide 35 mmol/L (22-30); Chloride 100 mmol/L (98-107); Glucose 108 mg/dL (74-99); Magnesium 2.3 mg/dL (1.6-2.3); Phosphorus 3.5 mg/dL (2.5-4.5); Potassium 4.2 mmol/L (3.5-5.1); Sodium 141 mmol/L (137-145); Total Protein 5.4 g/dL (6.3-8.2)
[2017-12-06 06:11] LABS: INR 2.2 (<1.2); Prothrombin Time 20.1 sec (9.0-12.0)
[2017-12-06] MEDS: IPRATROPIUM-ALBUTEROL 3 ML NEB INHALATION SCH ×4 (07:15→19:55)
[2017-12-06] MEDS: BUDESONIDE 1 MG/2 ML NEBU INHALATION SCH ×2 (07:15→19:54)
[2017-12-06] MEDS: HYDROcodone/APAP 5-325MG 1 EACH TAB PO PRN ×3 (07:35→22:49)
--- NOTE | 2017-12-06 07:49 | XR ---
EXAMINATION TYPE: XR chest 1V portable DATE OF EXAM: 12/06/2017 COMPARISON: Prior chest 12/05/2017 HISTORY: Status post coronary artery bypass graft, abnormal chest x-ray TECHNIQUE: Single frontal view of the chest is obtained. FINDINGS: The heart remains enlarged, postop changes are again noted. Left-sided PICC line is stable . Interstitium and central vascularity are prominent, bibasilar increased density again noted. No rafia dent pneumothorax. There are overlying artifacts. IMPRESSION: Correlate for congestive heart failure. Pneumonia not excluded.
[2017-12-06] MEDS: METOPROLOL TARTRATE 25 MG TAB PO SCH ×2 (08:00→15:54)
[2017-12-06] MEDS: PANTOPRAZOLE 40 MG TABLET PO SCH (08:00)
[2017-12-06] MEDS: INSULIN ASPART 100 UNIT/ML 1 ML 10 ML VIAL SQ SCH ×4 (08:00→20:26)
[2017-12-06] MEDS: ATORVASTATIN 40 MG TAB PO SCH (08:01)
[2017-12-06] MEDS: methylPREDNISolone SOD SUCCI 40 MG/ML 1 ML VIAL IV SCH ×3 (08:01→23:32)
[2017-12-06] MEDS: AMIODARONE 200 MG TAB PO SCH ×2 (08:01→20:29)
[2017-12-06] MEDS: ASPIRIN 81 MG PO SCH (08:01)
--- NOTE | 2017-12-06 08:16 | P.PN ---
<Parris Dawkins - Last Filed: 12/06/17 08:06> Subjective Progress Note Date: 12/06/17 Principal diagnosis: Severe mitral regurgitation. Coronary artery disease. Paroxysmal atrial fibrillation on Coumadin for anticoagulation. Recent hospitalization for lower GI bleed, duodenal ulcer. History of left subclavian stenosis with stent placement 2014 with recent discovery of critical re-in-stent stenosis. Previous tobacco dependence with preoperative FEV1 60% of predicted. Hypertension. Hyperlipidemia. Gallbladder disease. Family history of heart disease. Preoperative nasal swab positive for MRSA. Preoperative anemia. POD #11 mitral valve replacement using a 25 mm [place] bioprosthetic tissue valve. Coronary artery bypass grafting 1, reverse saphenous vein graft to the obtuse marginal artery. Maze procedure. Endoscopic harvesting of the right greater saphenous vein. Epi-aortic ultrasound. Intraoperative transesophageal echocardiogram. Ligation of the left atrial appendage using a 40 mm AtriClip. Intraoperative left ventricular wall tear, an unexpected but potential outcome of surgery Acute blood loss anemia, and expected outcome given patient's preoperative anemia and intraoperative bleeding. Postoperative prolonged mechanical ventilation secondary to hemodynamic instability, and unexpected but potential outcome of surgery given the extensive nature of her perioperative course The patient's currently sitting up in bed in no acute distress. Continues to use BiPAP at night, alternates between high flow nasal cannula and BiPAP during the day. Continues to have episodes of tachycardia despite med adjustments. We have not increased her beta krunal further secondary to episodes of hypotension in the evening when she is on BiPAP. States pain is controlled with current medication regimen, complains of occasional shortness of breath. States she is starting to feel little frustrated how long taking to feel better. Objective - Vital Signs Vital signs: Vital Signs Temp 98.9 F 12/06/17 04:00 Pulse 114 H 12/06/17 07:30 Resp 22 12/06/17 07:00 BP 135/93 12/06/17 07:00 Pulse Ox 98 12/06/17 07:00 Intake & Output 12/05/17 12/06/17 12/06/17 18:59 06:59 18:59 Intake Total 870 700.0 Output Total 2550 1050 0 Balance -1680 -350 0 Weight 104.6 kg Intake: IV 150 100.0 Piperacillin-Tazobactam 3 150 100.0 .375 gm In Dextrose/Water 1 50ml.bag @ 12.5 mls/hr IVPB Q8HR [facility] Rx#: [id number] Oral 720 600 Output: Urine 2550 1050 0 Other: Voiding Method Bedpan Bedpan # Voids 1 # Bowel Movements 1 ABP, PAP, CO, CI - Last Documented Arterial Blood Pressure 110/60 Pulmonary Artery Pressure 38/33 Cardiac Output 5.8 Cardiac Index 2.9 - Constitutional General appearance: Present: cooperative, mild distress, obese - Respiratory Details: Lungs sounds diminished with coarse breath sounds bilaterally. Respirations currently slightly tachypneic. Was on high flow nasal cannula, placed back on BiPAP after breakfast. - Cardiovascular Details: S1, S2 present. Tachycardic rate and rhythm, uncontrolled atrial flutter on telemetry. Sternum stable. Palpable peripheral pulses bilaterally. Generalized edema still present. No calf pain or tenderness noted. Heart hugger, antiembolism stockings, SCDs present. Left-sided PICC line present. - Gastrointestinal Gastrointestinal Comment(s): Abdomen soft, nontender, nondistended. Active bowel sounds 4 quadrants. Tolerating diet. - Genitourinary Genitourinary Comment(s): Continues to void via bed dee. - Integumentary Integumentary Comment(s): Skin is warm and dry with multiple areas of ecchymosis. - Neurologic Neurologic: Present: CNII-XII intact - Musculoskeletal Musculoskeletal: Present: generalized weakness - Psychiatric Psychiatric: Present: A&O x's 3, appropriate affect, intact judgment & insight - Allied health notes Allied health notes reviewed: nursing - Labs CBC & Chem 7: 12/06/17 05:45 12/06/17 05:45 Labs: Abnormal Lab Results - Last 24 Hours (Table) 12/05/17 12/05/17 12/05/17 Range/Units 12:36 18:52 20:11 WBC (3.8-10.6) k/uL RBC (3.80-5.40) m/uL Hgb (11.4-16.0) gm/dL Hct (34.0-46.0) % MCHC (31.0-37.0) g/dL RDW (11.5-15.5) % Neutrophils # (1.3-7.7) k/uL Lymphocytes # (1.0-4.8) k/uL PT (9.0-12.0) sec INR (<1.2) Carbon Dioxide (22-30) mmol/L BUN (7-17) mg/dL Glucose (74-99) mg/dL POC Glucose (mg/dL) 108 H 172 H 130 H (75-99) mg/dL AST (14-36) U/L Total Protein (6.3-8.2) g/dL Albumin (3.5-5.0) g/dL 12/06/17 12/06/17 12/06/17 Range/Units 05:45 05:45 05:45 WBC 22.6 H (3.8-10.6) k/uL RBC 3.47 L (3.80-5.40) m/uL Hgb 9.2 L (11.4-16.0) gm/dL Hct 31.6 L (34.0-46.0) % MCHC 29.2 L (31.0-37.0) g/dL RDW 17.4 H (11.5-15.5) % Neutrophils # 21.7 H (1.3-7.7) k/uL Lymphocytes # 0.3 L (1.0-4.8) k/uL PT 20.1 H (9.0-12.0) sec INR 2.2 H (<1.2) Carbon Dioxide 35 H (22-30) mmol/L BUN 49 H (7-17) mg/dL Glucose 108 H (74-99) mg/dL POC Glucose (mg/dL) (75-99) mg/dL AST 46 H (14-36) U/L Total Protein 5.4 L (6.3-8.2) g/dL Albumin 2.5 L (3.5-5.0) g/dL Microbiology - Last 24 Hours (Table) 12/04/17 10:00 Urine Culture - Preliminary Urine,Voided Gram Neg Bacilli - Imaging and Cardiology Chest x-ray: report reviewed, image reviewed Assessment and Plan (1) Acute blood loss anemia Current Visit: Yes Status: Acute Code(s): D62 - ACUTE POSTHEMORRHAGIC ANEMIA SNOMED Code(s): 422195843 (2) CAD (coronary artery disease) Current Visit: Yes Status: Chronic Code(s): I25.10 - ATHSCL HEART DISEASE OF [place] CORONARY ARTERY W/O ANG PCTRS SNOMED Code(s): 70587061 (3) Hyperlipidemia Current Visit: Yes Status: Chronic Code(s): E78.5 - HYPERLIPIDEMIA, UNSPECIFIED SNOMED Code(s): 28874874 (4) Hypertension Current Visit: Yes Status: Chronic Code(s): I10 - ESSENTIAL (PRIMARY) HYPERTENSION SNOMED Code(s): 19790765 (5) Severe mitral regurgitation Current Visit: Yes Status: Chronic Code(s): I34.0 - NONRHEUMATIC MITRAL ( VALVE) INSUFFICIENCY SNOMED Code(s): 40086798 (6) Stenosis of left subclavian artery Current Visit: Yes Status: Chronic Code(s): I77.1 - STRICTURE OF ARTERY SNOMED Code(s): 359960045 (7) Paroxysmal atrial fibrillation Current Visit: No Status: Resolved Code(s): I48.0 - PAROXYSMAL ATRIAL FIBRILLATION SNOMED Code(s): 302565066 (8) History of GI bleed Current Visit: No Status: Resolved Code(s): Z87.19 - PERSONAL HISTORY OF OTHER DISEASES OF THE DIGESTIVE SYSTEM SNOMED Code(s): 791188851 (9) Family history of coronary artery disease Current Visit: Yes Status: Chronic Code(s): Z82.49 - FAMILY HX OF I[place]HE[place] HEART DIS AND OTH DIS OF THE CIRC SYS SNOMED Code(s): 164304708 Plan: 1. Continue baby aspirin, statin, beta krunal, Arixtra. Will increase beta krunal therapy as tolerated. HIT panel negative. 2. Continue amiodarone for history of paroxysmal atrial fibrillation on home amiodarone. Discussed with Dr. Crawley. Patient may be cardioverted today. 3. Continue digoxin 125 g orally daily. Will give Lasix IV today. 4. Wean O2 as tolerated. BiPAP management per pulmonology. Encourage incentive spirometry use 10x every hour. 5. Urinalysis, urine culture sent secondary to leukocytosis. Patient has remained afebrile. Preliminary urine culture demonstrating gram-negative bacilli. Started on Zosyn per pulmonology. 6. Will monitor labs, chest x-rays. 7. Bronchodilators, steroids per pulmonology. Chest ultrasound completed per pulmonology, possible thoracentesis per pulmonology. 8. Daily Coumadin dosing per PT and INR. Cardiothoracic surgery will manage dosing while she is inpatient, outpatient management to be done by cardiology. 9. GI/DVT prophylaxis. 10. Increase activity as tolerated. PT/OT/cardiac rehab following. 11. More recommendations as patient progresses. Time with Patient: Greater than 30 <LucienTeaganesvin - Last Filed: 12/06/17 16:19> Subjective Principal diagnosis: Patient with some sero-sanguinous drainage from sternotomy incision. Sternum appears unstable , at least in its upper part. Will observe closely for signs of infection. Conservative management for now in view of patient's general condition. Objective - Vital Signs Vital signs: Vital Signs Temp 98 F 12/06/17 12:00 Pulse 115 H 12/06/17 15:00 Resp 22 12/06/17 15:00 BP 92/65 12/06/17 15:00 Pulse Ox 94 L 12/06/17 15:00 Intake & Output 12/05/17 12/06/17 12/06/17 18:59 06:59 18:59 Intake Total 870 700.0 50.0 Output Total 2550 1050 1999 Balance -1680 -350 -1950.0 Weight 104.6 kg Intake: IV 150 100.0 50.0 Piperacillin-Tazobactam 3 150 100.0 50.0 .375 gm In Dextrose/Water 1 50ml.bag @ 12.5 mls/hr IVPB Q8HR [facility] Rx#: [id number] Oral 720 600 Output: Urine 2550 1050 2000 Other: Voiding Method Bedpan Bedpan Bedpan # Voids 1 # Bowel Movements 1 ABP, PAP, CO, CI - Last Documented Arterial Blood Pressure 110/60 Pulmonary Artery Pressure 38/33 Cardiac Output 5.8 Cardiac Index 2.9 - Labs CBC & Chem 7: 12/06/17 05:45 12/06/17 05:45 Labs: Abnormal Lab Results - Last 24 Hours (Table) 12/05/17 12/05/17 12/06/17 Range/Units 18:52 20:11 05:45 WBC (3.8-10.6) k/uL RBC (3.80-5.40) m/uL Hgb (11.4-16.0) gm/dL Hct (34.0-46.0) % MCHC (31.0-37.0) g/dL RDW (11.5-15.5) % Neutrophils # (1.3-7.7) k/uL Lymphocytes # (1.0-4.8) k/uL PT 20.1 H (9.0-12.0) sec INR 2.2 H (<1.2) Carbon Dioxide (22-30) mmol/L BUN (7-17) mg/dL Glucose (74-99) mg/dL POC Glucose (mg/dL) 172 H 130 H (75-99) mg/dL AST (14-36) U/L Total Protein (6.3-8.2) g/dL Albumin (3.5-5.0) g/dL 12/06/17 12/06/17 12/06/17 Range/Units 05:45 05:45 12:16 WBC 22.6 H (3.8-10.6) k/uL RBC 3.47 L (3.80-5.40) m/uL Hgb 9.2 L (11.4-16.0) gm/dL Hct 31.6 L (34.0-46.0) % MCHC 29.2 L (31.0-37.0) g/dL RDW 17.4 H (11.5-15.5) % Neutrophils # 21.7 H (1.3-7.7) k/uL Lymphocytes # 0.3 L (1.0-4.8) k/uL PT (9.0-12.0) sec INR (<1.2) Carbon Dioxide 35 H (22-30) mmol/L BUN 49 H (7-17) mg/dL Glucose 108 H (74-99) mg/dL POC Glucose (mg/dL) 104 H (75-99) mg/dL AST 46 H (14-36) U/L Total Protein 5.4 L (6.3-8.2) g/dL Albumin 2.5 L (3.5-5.0) g/dL Microbiology - Last 24 Hours (Table) 12/04/17 10:00 Urine Culture - Preliminary Urine,Voided Gram Neg Bacilli
[2017-12-06] MEDS: PIPERACILLIN-TAZOBACTAM 3.375 GM in DEXTROSE/WATER 1 50ML.BAG IVPB SCH ×3 (08:29→23:34)
[2017-12-06] MEDS ORDERED: DIGOXIN 125 MCG TAB PO SCH (09:00)
[2017-12-06] MEDS: FUROSEMIDE 10 MG/ML 4 ML VIAL IV SCH ×2 (10:01→17:43)
[2017-12-06] MEDS: FONDAPARINUX 2.5 MG/0.5 ML SYRINGE SQ SCH (10:02)
[2017-12-06] MEDS: METOLAZONE 5 MG TAB PO SCH (10:02)
--- NOTE | 2017-12-06 11:41 | P.PN ---
Subjective Principal diagnosis: Patient is sitting up in bed she complains of chest wall discomfort. She is in A. fib with RVR between 150-130 bpm Rheumatic heart disease status post valve surgery, mitral valve Maze. Procedure performed Postoperative atrial flutter and now atrial fibrillation On examination of breath sounds are reduced bilaterally have any rhonchi or crackles Heart sounds are soft Extremities are warm Edema is noted in the extremities including her hands Blood pressure 111/71 mmHg respirations 28, pulse rate 115, afebrile 97.7 Labs are reviewed hemoglobin 9.2 sodium 141, potassium 4.2 BUN 49 and creatinine 0.73 liver function tests within normal limits Impression Rheumatic heart disease, rheumatic valvular disease Status post valve surgery, mitral valve status post maze procedure Repair of a rent in the ventricle Anemia Postoperative atrial fibrillation postoperative atrial flutter If rate control despite multiple medications and amiodarone Left atrial appendage appendectomy On Coumadin INR therapeutic Suggest Discontinue digoxin Continue oral amiodarone and metoprolol Continue Lasix Electrical cardioversion planned for tomorrow, continue Coumadin Daily labs BMP PT/INR Objective - Vital Signs Vital signs: Vital Signs Temp 97.7 F 12/06/17 08:00 Pulse 110 H 12/06/17 10:00 Resp 30 H 12/06/17 10:00 BP 111/71 12/06/17 10:00 Pulse Ox 97 12/06/17 10:00 Intake & Output 12/05/17 12/06/17 12/06/17 18:59 06:59 18:59 Intake Total 870 700.0 50.0 Output Total 2550 1050 550 Balance -1680 -350 -500.0 Weight 104.6 kg Intake: IV 150 100.0 50.0 Piperacillin-Tazobactam 3 150 100.0 50.0 .375 gm In Dextrose/Water 1 50ml.bag @ 12.5 mls/hr IVPB Q8HR [facility] Rx#: [id number] Oral 720 600 Output: Urine 2550 1050 550 Other: Voiding Method Bedpan Bedpan Bedpan # Voids 1 # Bowel Movements 1 ABP, PAP, CO, CI - Last Documented Arterial Blood Pressure 110/60 Pulmonary Artery Pressure 38/33 Cardiac Output 5.8 Cardiac Index 2.9 - Labs CBC & Chem 7: 12/06/17 05:45 12/06/17 05:45 Labs: Abnormal Lab Results - Last 24 Hours (Table) 12/05/17 12/05/17 12/05/17 Range/Units 12:36 18:52 20:11 WBC (3.8-10.6) k/uL RBC (3.80-5.40) m/uL Hgb (11.4-16.0) gm/dL Hct (34.0-46.0) % MCHC (31.0-37.0) g/dL RDW (11.5-15.5) % Neutrophils # (1.3-7.7) k/uL Lymphocytes # (1.0-4.8) k/uL PT (9.0-12.0) sec INR (<1.2) Carbon Dioxide (22-30) mmol/L BUN (7-17) mg/dL Glucose (74-99) mg/dL POC Glucose (mg/dL) 108 H 172 H 130 H (75-99) mg/dL AST (14-36) U/L Total Protein (6.3-8.2) g/dL Albumin (3.5-5.0) g/dL 12/06/17 12/06/17 12/06/17 Range/Units 05:45 05:45 05:45 WBC 22.6 H (3.8-10.6) k/uL RBC 3.47 L (3.80-5.40) m/uL Hgb 9.2 L (11.4-16.0) gm/dL Hct 31.6 L (34.0-46.0) % MCHC 29.2 L (31.0-37.0) g/dL RDW 17.4 H (11.5-15.5) % Neutrophils # 21.7 H (1.3-7.7) k/uL Lymphocytes # 0.3 L (1.0-4.8) k/uL PT 20.1 H (9.0-12.0) sec INR 2.2 H (<1.2) Carbon Dioxide 35 H (22-30) mmol/L BUN 49 H (7-17) mg/dL Glucose 108 H (74-99) mg/dL POC Glucose (mg/dL) (75-99) mg/dL AST 46 H (14-36) U/L Total Protein 5.4 L (6.3-8.2) g/dL Albumin 2.5 L (3.5-5.0) g/dL Microbiology - Last 24 Hours (Table) 12/04/17 10:00 Urine Culture - Preliminary Urine,Voided Gram Neg Bacilli
[2017-12-06 12:18] LABS: Glucose,Whole Blood 104 mg/dL (75-99)
--- NOTE | 2017-12-06 12:31 | P.PN ---
<Yuliet Lopez M - Last Filed: 12/06/17 12:12> Subjective Progress Note Date: 12/06/17 Principal diagnosis: Severe mitral regurgitation, coronary artery disease, status post mitral valve replacement, bypass grafting 1, modified maze procedure and ligation of left atrial appendage Status post 1 vessel bypass grafting and mitral valve replacement. Progress note dated 11/29/2017 This is a 67-year-old female status post one-vessel bypass grafting and mitral valve replacement. She apparently had surgery on the . Today is postop day #3. The patient currently remains on the mechanical ventilator. Her vent settings are the assist control mode rate of 1210 of I am is 550 FiO2 50% PEEP of 5. Arterial blood gases show a PaO2 of 135 a PaCO2 of 36 and a pH of 7.47. I'm to make a few changes including bumping the rate up from 12 to 20, and decreasing the tidal volume from 550 down to 400, and dropping the FiO2 from 50- 40%. The patient may not be weaned of old low because she remains on insulin drip at 1 unit per hour, Primacor 0.2 mics per kilogram per minute, norepinephrine at 2 mics per minute, half normal saline at 30 mL an hour and propofol at 25 g kilogram per minute. Chest x-rays consistent with fluid overload but bibasilar infiltrates and small effusions and microbiology is negative. The rest of the labs medications and x-rays are all reviewed. Progress note dated 11/30/2017 This is a 67-year-old female status post one-vessel bypass grafting and mitral valve replacement. She had surgery on the . She is postop day #4. She remains on mechanical ventilator. Yesterday, her chest x-ray showed evidence of fluid overload. She did get some diuretics. Today's chest x-ray still shows evidence of fluid overload although it might be slightly improved. She's currently still on the mechanical ventilator on the assist control mode, rate of 26, tidal volume 400, PEEP of 8, FiO2 40%. The patient's arterial blood gases show a PaO2 of 94 and pH 7.46 in a PaCO2 of 41. The patient will get a daily eruption of sedation and a spontaneous breathing trial. The patient remains on norepinephrine at 3 mcg/m, propofol at 30 mics per kilogram per minute, Primacor 0.2 mics per kilogram per minute, half normal saline IV at 15 mL an hour and vital 1.2 at 60 with a goal of 60 mL an hour. The patient failed her spontaneous breathing trial yesterday very quickly, and afterwards, she became dyssynchronous with the ventilator and I had to bump up the PEEP level to 8 and increase her respiratory rate to 26. We also dropped the tidal volume down to 400. She is much more in synchrony today. Progress note dated 12/01/2017 This is a 67-year-old female who is postop day #5, status post one-vessel bypass grafting and mitral valve replacement. She also has a history of postoperative respiratory failure with failure to wean. She was extubated yesterday though. Chest x-ray has evidence of fluid overload which actually is improved. In addition, the patient had acute blood loss anemia requiring blood transfusion postsurgically, hypertension severe mitral regurgitation left subclavian stenosis paroxysmal atrial fibrillation GI bleed and obesity. Yesterday, post extubation we gave the patient 1 shot of Solu-Medrol 60 mg IV push and also put her on BiPAP at 14/5 and 40%. Chest x-ray does show improvement. Today her hemoglobin is below 7 and she'll receive 1 unit of blood followed by some Lasix IV. In addition, I may add on some IV site Medrol and a smaller dose than normal and also some Pulmicort 1 mg twice a day. Progress note dated 12/02/2017 67-year-old female who is postop day #6 status post single-vessel bypass grafting and mitral valve replacement. The patient has been doing very well the last day and a half to 2 days. She has a history of postoperative respiratory failure and initially, failure to wean. She was extubated 2 days ago. She has had to use of BiPAP on and off since that time. She did receive 1 unit of PRBCs yesterday followed by some Lasix 40 mg IV push. Her chest x- ray my opinion still so-so some fluid overload with a small pool of pleural effusion. Other than that, the patient seemed be doing relatively well. She has a history of hypertension severe mitral regurgitation blood loss anemia following surgery left subclavian stenosis paroxysmal atrial fibrillation GI bleed and obesity. This morning, she'll come off the BiPAP and go back to nasal O2. She prefers a nasal O2 over the BiPAP device. She may have had an episode of aspiration last night. Speech pathology was consulted. In addition , I did check for a DVT in the right upper extremity and the Doppler was negative. Progress note dated 12/03/2017 67-year-old female postop day #7, status post single-vessel bypass grafting and mitral valve replacement. The patient has been doing relatively well although this morning she was a bit more short of breath. Chest x-ray does show some fluid overload. She's been on and off of BiPAP. This morning she was on O2 nasal cannula at 3 L. The cardiothoracic practitioner thought she was a bit more short of breath I went and saw her. I looked at her chest x-ray. We asked her to go back on BiPAP at 14 and 5 and 40% and we also gave her Lasix 60 mg IV push. She seemed be doing a lot better now. She's not receiving any IV fluids. Chest x-ray does show fluid overload. Again the Lasix was given this morning. She was a bit to This morning. Breathing about 25 times a minute. No swapnil distress. In addition, she has a history of hypertension severe mitral regurgitation blood loss anemia following her open heart surgery, left subclavian artery stenosis paroxysmal atrial fibrillation GI bleed and obesity. Progress note dated 12/04/2017 67-year-old female, postop day #8, status post single-vessel bypass grafting and mitral valve replacement. The patient's overall situation is been reasonable. She seemed to do do better while she is on BiPAP therapy. When she is a bit more short of breath, she does poorly when she's not on BiPAP. Chest x-ray shows some fluid overload. She has some cephalization to the upper lobes. In addition, she is either consolidation atelectasis or infiltrates in the lower lobes. In addition, probably has some pleural effusions bilaterally. Currently she is on 7 L high flow. She's not receiving any IV fluids. When she is on BiPAP, she is on settings of 14 and 5 and 40%. She did receive some Lopressor for atrial fibrillation with RVR. Cardiothoracic surgery ask about antibiotics for possible pneumonia. Is not unreasonable to add some antibiotics to her regimen. She may have some pneumonia hiding in the lung spaces bilaterally. She isn't producing any phlegm. There's been no fever or chills. Other than that, she is doing reasonably well. Labs x-rays a medications are all reviewed. Personal dated 12/05/2017 The patient is seen again today in follow-up in the intensive care unit. This is postoperative day #9. She remains quite BiPAP dependent. Settings 14/5 at 40% FiO2. She is quite short of breath with any minimal exertion. Her chest x- ray continues to show evidence of fluid volume overload with bilateral effusions right greater than left. She is status post 11 units of packed red blood cells, 4 units of fresh frozen plasma, 2 units of platelets and 1 of pheresis platelets, 20 units 20 cryoprecipitate and remains in a significant positive balance overall. He is also had ongoing issues with atrial fibrillation/flutter with rapid ventricular rates. White count 27.5. Hemoglobin 9.1. Platelet count is 287. INR 1.6. Creatinine 0.73. She remains on bronchodilators, Pulmicort inhalations, IV Solu-Medrol. Antibiotics in the form of Zosyn. She is on amiodarone, digoxin, beta blockers and warfarin. On 12/06/2017 patient seen again in the intensive care unit, she remains on BiPAP with pressures of 14/5, and FiO2 40%. O2 sat is around 97%. She is tolerating it well. She remains in A. fib with a rate of 110 to 115 BPM, hemodynamically stable. Lung sounds reveal diminished lung sounds bilaterally. Chest x-ray from this morning was reviewed and showed prominent interstitium and central vascularity with bibasilar increased density compatible with bilateral pleural effusions. Patient appears to be fairly comfortable at rest, oxygenating well on FiO2 40%. Her INR today is 2.2, she is awaiting cardioversion on 12/07/2017. After discussion with cardiothoracic surgery, he was decided to wait with thoracentesis until after the cardioversion, because the patient is currently sufficiently anticoagulated for the procedure. We'll attempt to diurese with Lasix and Zaroxolyn. Patient remains on oral amiodarone , digoxin for rate control. Remains on Coumadin anticoagulant coagulation. Zosyn, IV Solu-Medrol 31 g every 8 hours, Pulmicort, and DuoNeb nebulized treatments. Objective - Vital Signs Vital signs: Vital Signs Temp 97.7 F 12/06/17 08:00 Pulse 111 H 12/06/17 11:56 Resp 30 H 12/06/17 10:00 BP 111/71 12/06/17 10:00 Pulse Ox 97 12/06/17 10:00 Intake & Output 12/05/17 12/06/17 12/06/17 18:59 06:59 18:59 Intake Total 870 700.0 50.0 Output Total 2550 1050 550 Balance -1680 -350 -500.0 Weight 104.6 kg Intake: IV 150 100.0 50.0 Piperacillin-Tazobactam 3 150 100.0 50.0 .375 gm In Dextrose/Water 1 50ml.bag @ 12.5 mls/hr IVPB Q8HR [facility] Rx#: [id number] Oral 720 600 Output: Urine 2550 1050 550 Other: Voiding Method Bedpan Bedpan Bedpan # Voids 1 # Bowel Movements 1 ABP, PAP, CO, CI - Last Documented Arterial Blood Pressure 110/60 Pulmonary Artery Pressure 38/33 Cardiac Output 5.8 Cardiac Index 2.9 - Exam GENERAL EXAM: Alert, pleasant, 67-year-old white female, in no apparent distress , currently on BiPAP with pressures of 14/5 and FiO2 of 40%. He is to be fairly comfortable on BiPAP support. HEAD: Normocephalic. EYES: Normal reaction of pupils, equal size. NOSE: Clear with pink turbinates. THROAT: No erythema or exudates. NECK: No masses, no JVD. CHEST: No chest wall deformity. Midsternal incision is well approximated, there are small amount of drainage at the distal end of the incision with serous drainage. The incision is covered with the dressing. Heart Hugger is in place LUNGS: Equal air entry with echoes in the bilateral posterior bases CVS: S1 and S2, irregular with no audible murmur, irregular rhythm. ABDOMEN: No hepatosplenomegaly, normal bowel sounds, no guarding or rigidity. SPINE: No scoliosis or deformity SKIN: No rashes CENTRAL NERVOUS SYSTEM: No focal deficits, tone is normal in all 4 extremities. EXTREMITIES: There is no peripheral edema. No clubbing, no cyanosis. Peripheral pulses are intact. Left-sided PICC line present - Labs CBC & Chem 7: 12/06/17 05:45 03/05/18 05:45 Labs: Abnormal Lab Results - Last 24 Hours (Table) 12/05/17 12/05/17 12/05/17 Range/Units 12:36 18:52 20:11 WBC (3.8-10.6) k/uL RBC (3.80-5.40) m/uL Hgb (11.4-16.0) gm/dL Hct (34.0-46.0) % MCHC (31.0-37.0) g/dL RDW (11.5-15.5) % Neutrophils # (1.3-7.7) k/uL Lymphocytes # (1.0-4.8) k/uL PT (9.0-12.0) sec INR (<1.2) Carbon Dioxide (22-30) mmol/L BUN (7-17) mg/dL Glucose (74-99) mg/dL POC Glucose (mg/dL) 108 H 172 H 130 H (75-99) mg/dL AST (14-36) U/L Total Protein (6.3-8.2) g/dL Albumin (3.5-5.0) g/dL 12/06/17 12/06/17 12/06/17 Range/Units 05:45 05:45 05:45 WBC 22.6 H (3.8-10.6) k/uL RBC 3.47 L (3.80-5.40) m/uL Hgb 9.2 L (11.4-16.0) gm/dL Hct 31.6 L (34.0-46.0) % MCHC 29.2 L (31.0-37.0) g/dL RDW 17.4 H (11.5-15.5) % Neutrophils # 21.7 H (1.3-7.7) k/uL Lymphocytes # 0.3 L (1.0-4.8) k/uL PT 20.1 H (9.0-12.0) sec INR 2.2 H (<1.2) Carbon Dioxide 35 H (22-30) mmol/L BUN 49 H (7-17) mg/dL Glucose 108 H (74-99) mg/dL POC Glucose (mg/dL) (75-99) mg/dL AST 46 H (14-36) U/L Total Protein 5.4 L (6.3-8.2) g/dL Albumin 2.5 L (3.5-5.0) g/dL Microbiology - Last 24 Hours (Table) 12/04/17 10:00 Urine Culture - Preliminary Urine,Voided Gram Neg Bacilli Assessment and Plan Plan: Assessment: #1 Severe mitral valve regurgitation, status post mitral valve replacement, with Maze procedure, left atrial appendage exclusion, and one-vessel bypass, postop day 10 #2 Postoperative respiratory failure with failure to wean, with extubation occurring on 11/30/2017, currently on BiPAP support with pressures 14 over 4, FiO2 40% #3 Chest x-ray evidence of fluid overload, bilateral pleural effusions right greater than left #4 Acute blood loss anemia requiring blood transfusion #5 History of hypertension #6 History of severe mitral regurgitation #7 History of left subclavian stenosis #8 Paroxysmal atrial fibrillation, anticoagulated with warfarin, awaiting cardioversion on 12/07/2017 #9 History of GI bleed #10 Obesity #11 Possible aspiration with aspiration pneumonia, currently on Zosyn. Plan: Continue BiPAP support with pressures 14 over 4 and FiO2 of 40%. We will continue diuresis with IV Lasix at 40 mg twice a day, agree with Zaroxolyn. Patient is awaiting to be cardioverted tomorrow, she is sufficiently anticoagulated, her INR today is 2.2. Appears to be fairly comfortable on BiPAP support at this time. Oxygenating fairly well on FiO2 40%. Continue Zosyn, continue IV Solu-Medrol, nebulized treatments, Pulmicort and DuoNeb. Case was discussed with cardiothoracic surgery, we'll attempt diuresis, and discuss stable thoracentesis after the cardioversion. Continue with current plan of care. I performed a history & physical examination of the patient and discussed their management with my nurse practitioner, Yuliet Lopez. I reviewed the nurse practitioner's note and agree with the documented findings and plan of care. Lung sounds are positive for diminished. The findings and the impression was discussed with the patient. I attest to the documentation by the nurse practitioner. Time with Patient: Greater than 30 <Cass Ledbetter - Last Filed: 12/06/17 16:17> Objective - Vital Signs Vital signs: Vital Signs Temp 98 F 12/06/17 12:00 Pulse 115 H 12/06/17 15:00 Resp 22 12/06/17 15:00 BP 92/65 12/06/17 15:00 Pulse Ox 94 L 12/06/17 15:00 Intake & Output 12/05/17 12/06/17 12/06/17 18:59 06:59 18:59 Intake Total 870 700.0 50.0 Output Total 2550 1050 1999 Balance -1680 -350 -1950.0 Weight 104.6 kg Intake: IV 150 100.0 50.0 Piperacillin-Tazobactam 3 150 100.0 50.0 .375 gm In Dextrose/Water 1 50ml.bag @ 12.5 mls/hr IVPB Q8HR [facility] Rx#: [id number] Oral 720 600 Output: Urine 2550 1050 1999 Other: Voiding Method Bedpan Bedpan Bedpan # Voids 1 # Bowel Movements 1 ABP, PAP, CO, CI - Last Documented Arterial Blood Pressure 110/60 Pulmonary Artery Pressure 38/33 Cardiac Output 5.8 Cardiac Index 2.9 - Labs CBC & Chem 7: 12/06/17 05:45 12/06/17 05:45 Labs: Abnormal Lab Results - Last 24 Hours (Table) 12/05/17 12/05/17 12/06/17 Range/Units 18:52 20:11 05:45 WBC (3.8-10.6) k/uL RBC (3.80-5.40) m/uL Hgb (11.4-16.0) gm/dL Hct (34.0-46.0) % MCHC (31.0-37.0) g/dL RDW (11.5-15.5) % Neutrophils # (1.3-7.7) k/uL Lymphocytes # (1.0-4.8) k/uL PT 20.1 H (9.0-12.0) sec INR 2.2 H (<1.2) Carbon Dioxide (22-30) mmol/L BUN (7-17) mg/dL Glucose (74-99) mg/dL POC Glucose (mg/dL) 172 H 130 H (75-99) mg/dL AST (14-36) U/L Total Protein (6.3-8.2) g/dL Albumin (3.5-5.0) g/dL 0312/06/17 12/06/17 Range/Units 05:45 05:45 12:16 WBC 22.6 H (3.8-10.6) k/uL RBC 3.47 L (3.80-5.40) m/uL Hgb 9.2 L (11.4-16.0) gm/dL Hct 31.6 L (34.0-46.0) % MCHC 29.2 L (31.0-37.0) g/dL RDW 17.4 H (11.5-15.5) % Neutrophils # 21.7 H (1.3-7.7) k/uL Lymphocytes # 0.3 L (1.0-4.8) k/uL PT (9.0-12.0) sec INR (<1.2) Carbon Dioxide 35 H (22-30) mmol/L BUN 49 H (7-17) mg/dL Glucose 108 H (74-99) mg/dL POC Glucose (mg/dL) 104 H (75-99) mg/dL AST 46 H (14-36) U/L Total Protein 5.4 L (6.3-8.2) g/dL Albumin 2.5 L (3.5-5.0) g/dL Microbiology - Last 24 Hours (Table) 12/04/17 10:00 Urine Culture - Preliminary Urine,Voided Gram Neg Bacilli Assessment and Plan Plan: This is joint evaluations was done along with a nurse practitioner. The patient was seen and evaluated. The patient will be continued on diuretics and will add Zaroxolyn. Continue BiPAP for Anila support. Not enough pleural fluid for thoracentesis. Continue anticoagulation. We'll follow. Repeat chest x-ray in the morning.
[2017-12-06] MEDS: SODIUM CHLORIDE 0.9% 1,000 ML IV SCH (15:54)
[2017-12-06 17:19] LABS: Glucose,Whole Blood 121 mg/dL (75-99)
[2017-12-06] MEDS ORDERED: WARFARIN 3 MG TAB PO ONE (18:00)
[2017-12-06 20:27] LABS: Glucose,Whole Blood 129 mg/dL (75-99)
[2017-12-06] MEDS: SENNOSIDES-DOCUSATE SODIUM 1 EACH TAB PO SCH (20:29)
[2017-12-06] MEDS: METOPROLOL TARTRATE 50 MG TAB PO SCH (20:29)
[2017-12-06] MEDS: LACTATED RINGERS 1,000 ML IV SCH (20:45)
[2017-12-07 04:23] LABS: INR 3.8 (<1.2); Prothrombin Time 33.7 sec (9.0-12.0)
[2017-12-07 04:25] LABS: ALT 45 U/L (9-52); AST 49 U/L (14-36); Albumin 2.5 g/dL (3.5-5.0); Alkaline Phosphatase 73 U/L (38-126); Anion Gap 3 mmol/L; Anisocytosis Slight; Basophils % (A) 0 %; Blood Urea Nitrogen 54 mg/dL (7-17); Calcium 8.5 mg/dL (8.4-10.2); Chloride 95 mmol/L (98-107); Eosinophils % (A) 0 %; Glucose 107 mg/dL (74-99); HCT 29.8 % (34.0-46.0); HGB 9.4 gm/dL (11.4-16.0); Hypochromasia Marked; Lymphocytes # (A) 0.3 k/uL (1.0-4.8); Lymphocytes % (A) 2 %; MCH 27.3 pg (25.0-35.0); MCHC 31.6 g/dL (31.0-37.0); MCV 86.3 fL (80.0-100.0); Magnesium 2.2 mg/dL (1.6-2.3); Mean Platelet Volume 7.7; Monocytes # (A) 0.5 k/uL (0-1.0); Monocytes % (A) 3 %; Neutrophils # (A) 16.1 k/uL (1.3-7.7); Neutrophils % (A) 94 %; Platelet Count 299 k/uL (150-450); Poikilocytosis Moderate; Potassium 3.8 mmol/L (3.5-5.1); RBC 3.45 m/uL (3.80-5.40); RDW 17.4 % (11.5-15.5); Sodium 138 mmol/L (137-145); Total Protein 5.4 g/dL (6.3-8.2)
[2017-12-07 04:37] LABS: Carbon Dioxide 40 mmol/L (22-30)
[2017-12-07] MEDS: POTASSIUM CHLORIDE 10 MEQ in SODIUM CHLORIDE 0.9% 100 ML IV SCH ×2 (05:54→08:29)
[2017-12-07 07:15] LABS: Glucose,Whole Blood 108 mg/dL (75-99)
--- NOTE | 2017-12-07 07:29 | XR ---
EXAMINATION TYPE: XR chest 1V portable DATE OF EXAM: 12/07/2017 COMPARISON: 12/06/2017 HISTORY: CABG TECHNIQUE: Single frontal view of the chest is obtained. FINDINGS: Vascular stents noted. Postsurgical changes with use interstitial pattern bilateral elevat ion and small effusion. Findings are stable. Left-sided PICC line stable. No pneumothorax. IMPRESSION: 1. Stable diffuse bilateral areas of infiltrate and pleural effusion correlate for CHF. Underlying pn eumonia cannot exclude
[2017-12-07] MEDS ORDERED: PROPOFOL 10 MG/ML 20 ML VIAL IV ONE (08:15)
[2017-12-07] MEDS ORDERED: DEXTROSE 5% IN WATER 250 ML with AMIODARONE 300 MG IV ONE (08:25)
[2017-12-07] MEDS: INSULIN ASPART 100 UNIT/ML 1 ML 10 ML VIAL SQ SCH ×4 (08:30→20:10)
[2017-12-07] MEDS: PIPERACILLIN-TAZOBACTAM 3.375 GM in DEXTROSE/WATER 1 50ML.BAG IVPB SCH ×3 (08:32→23:19)
[2017-12-07] MEDS: methylPREDNISolone SOD SUCCI 40 MG/ML 1 ML VIAL IV SCH ×3 (08:32→23:19)
[2017-12-07] MEDS: FUROSEMIDE 10 MG/ML 4 ML VIAL IV SCH ×2 (08:33→20:10)
[2017-12-07] MEDS: BUDESONIDE 1 MG/2 ML NEBU INHALATION SCH ×2 (08:36→20:20)
[2017-12-07] MEDS: IPRATROPIUM-ALBUTEROL 3 ML NEB INHALATION SCH ×5 (08:36→20:20)
[2017-12-07] MEDS: ASPIRIN 81 MG PO SCH (08:53)
[2017-12-07] MEDS: ATORVASTATIN 40 MG TAB PO SCH (08:53)
[2017-12-07] MEDS: PANTOPRAZOLE 40 MG TABLET PO SCH (08:53)
[2017-12-07] MEDS: METOPROLOL TARTRATE 50 MG TAB PO SCH ×2 (08:53→20:11)
[2017-12-07] MEDS: METOLAZONE 5 MG TAB PO SCH (08:53)
--- NOTE | 2017-12-07 09:04 | P.PN ---
Subjective Progress Note Date: 12/07/17 Principal diagnosis: Severe mitral regurgitation, coronary artery disease, status post mitral valve replacement, bypass grafting 1, modified maze procedure and ligation of left atrial appendage Status post 1 vessel bypass grafting and mitral valve replacement. Progress note dated 11/29/2017 This is a 67-year-old female status post one-vessel bypass grafting and mitral valve replacement. She apparently had surgery on the . Today is postop day #3. The patient currently remains on the mechanical ventilator. Her vent settings are the assist control mode rate of 1210 of I am is 550 FiO2 50% PEEP of 5. Arterial blood gases show a PaO2 of 135 a PaCO2 of 36 and a pH of 7.47. I'm to make a few changes including bumping the rate up from 12 to 20, and decreasing the tidal volume from 550 down to 400, and dropping the FiO2 from 50- 40%. The patient may not be weaned of old low because she remains on insulin drip at 1 unit per hour, Primacor 0.2 mics per kilogram per minute, norepinephrine at 2 mics per minute, half normal saline at 30 mL an hour and propofol at 25 g kilogram per minute. Chest x-rays consistent with fluid overload but bibasilar infiltrates and small effusions and microbiology is negative. The rest of the labs medications and x-rays are all reviewed. Progress note dated 11/30/2017 This is a 67-year-old female status post one-vessel bypass grafting and mitral valve replacement. She had surgery on the . She is postop day #4. She remains on mechanical ventilator. Yesterday, her chest x-ray showed evidence of fluid overload. She did get some diuretics. Today's chest x-ray still shows evidence of fluid overload although it might be slightly improved. She's currently still on the mechanical ventilator on the assist control mode, rate of 26, tidal volume 400, PEEP of 8, FiO2 40%. The patient's arterial blood gases show a PaO2 of 94 and pH 7.46 in a PaCO2 of 41. The patient will get a daily eruption of sedation and a spontaneous breathing trial. The patient remains on norepinephrine at 3 mcg/m, propofol at 30 mics per kilogram per minute, Primacor 0.2 mics per kilogram per minute, half normal saline IV at 15 mL an hour and vital 1.2 at 60 with a goal of 60 mL an hour. The patient failed her spontaneous breathing trial yesterday very quickly, and afterwards, she became dyssynchronous with the ventilator and I had to bump up the PEEP level to 8 and increase her respiratory rate to 26. We also dropped the tidal volume down to 400. She is much more in synchrony today. Progress note dated 12/01/2017 This is a 67-year-old female who is postop day #5, status post one-vessel bypass grafting and mitral valve replacement. She also has a history of postoperative respiratory failure with failure to wean. She was extubated yesterday though. Chest x-ray has evidence of fluid overload which actually is improved. In addition, the patient had acute blood loss anemia requiring blood transfusion postsurgically, hypertension severe mitral regurgitation left subclavian stenosis paroxysmal atrial fibrillation GI bleed and obesity. Yesterday, post extubation we gave the patient 1 shot of Solu-Medrol 60 mg IV push and also put her on BiPAP at 14/5 and 40%. Chest x-ray does show improvement. Today her hemoglobin is below 7 and she'll receive 1 unit of blood followed by some Lasix IV. In addition, I may add on some IV site Medrol and a smaller dose than normal and also some Pulmicort 1 mg twice a day. Progress note dated 12/02/2017 67-year-old female who is postop day #6 status post single-vessel bypass grafting and mitral valve replacement. The patient has been doing very well the last day and a half to 2 days. She has a history of postoperative respiratory failure and initially, failure to wean. She was extubated 2 days ago. She has had to use of BiPAP on and off since that time. She did receive 1 unit of PRBCs yesterday followed by some Lasix 40 mg IV push. Her chest x- ray my opinion still so-so some fluid overload with a small pool of pleural effusion. Other than that, the patient seemed be doing relatively well. She has a history of hypertension severe mitral regurgitation blood loss anemia following surgery left subclavian stenosis paroxysmal atrial fibrillation GI bleed and obesity. This morning, she'll come off the BiPAP and go back to nasal O2. She prefers a nasal O2 over the BiPAP device. She may have had an episode of aspiration last night. Speech pathology was consulted. In addition , I did check for a DVT in the right upper extremity and the Doppler was negative. Progress note dated 12/03/2017 67-year-old female postop day #7, status post single-vessel bypass grafting and mitral valve replacement. The patient has been doing relatively well although this morning she was a bit more short of breath. Chest x-ray does show some fluid overload. She's been on and off of BiPAP. This morning she was on O2 nasal cannula at 3 L. The cardiothoracic practitioner thought she was a bit more short of breath I went and saw her. I looked at her chest x-ray. We asked her to go back on BiPAP at 14 and 5 and 40% and we also gave her Lasix 60 mg IV push. She seemed be doing a lot better now. She's not receiving any IV fluids. Chest x-ray does show fluid overload. Again the Lasix was given this morning. She was a bit to This morning. Breathing about 25 times a minute. No swapnil distress. In addition, she has a history of hypertension severe mitral regurgitation blood loss anemia following her open heart surgery, left subclavian artery stenosis paroxysmal atrial fibrillation GI bleed and obesity. Progress note dated 12/04/2017 67-year-old female, postop day #8, status post single-vessel bypass grafting and mitral valve replacement. The patient's overall situation is been reasonable. She seemed to do do better while she is on BiPAP therapy. When she is a bit more short of breath, she does poorly when she's not on BiPAP. Chest x-ray shows some fluid overload. She has some cephalization to the upper lobes. In addition, she is either consolidation atelectasis or infiltrates in the lower lobes. In addition, probably has some pleural effusions bilaterally. Currently she is on 7 L high flow. She's not receiving any IV fluids. When she is on BiPAP, she is on settings of 14 and 5 and 40%. She did receive some Lopressor for atrial fibrillation with RVR. Cardiothoracic surgery ask about antibiotics for possible pneumonia. Is not unreasonable to add some antibiotics to her regimen. She may have some pneumonia hiding in the lung spaces bilaterally. She isn't producing any phlegm. There's been no fever or chills. Other than that, she is doing reasonably well. Labs x-rays a medications are all reviewed. Personal dated 12/05/2017 The patient is seen again today in follow-up in the intensive care unit. This is postoperative day #9. She remains quite BiPAP dependent. Settings 14/5 at 40% FiO2. She is quite short of breath with any minimal exertion. Her chest x- ray continues to show evidence of fluid volume overload with bilateral effusions right greater than left. She is status post 11 units of packed red blood cells, 4 units of fresh frozen plasma, 2 units of platelets and 1 of pheresis platelets, 20 units 20 cryoprecipitate and remains in a significant positive balance overall. He is also had ongoing issues with atrial fibrillation/flutter with rapid ventricular rates. White count 27.5. Hemoglobin 9.1. Platelet count is 287. INR 1.6. Creatinine 0.73. She remains on bronchodilators, Pulmicort inhalations, IV Solu-Medrol. Antibiotics in the form of Zosyn. She is on amiodarone, digoxin, beta blockers and warfarin. On 12/06/2017 patient seen again in the intensive care unit, she remains on BiPAP with pressures of 14/5, and FiO2 40%. O2 sat is around 97%. She is tolerating it well. She remains in A. fib with a rate of 110 to 115 BPM, hemodynamically stable. Lung sounds reveal diminished lung sounds bilaterally. Chest x-ray from this morning was reviewed and showed prominent interstitium and central vascularity with bibasilar increased density compatible with bilateral pleural effusions. Patient appears to be fairly comfortable at rest, oxygenating well on FiO2 40%. Her INR today is 2.2, she is awaiting cardioversion on 12/07/2017. After discussion with cardiothoracic surgery, he was decided to wait with thoracentesis until after the cardioversion, because the patient is currently sufficiently anticoagulated for the procedure. We'll attempt to diurese with Lasix and Zaroxolyn. Patient remains on oral amiodarone , digoxin for rate control. Remains on Coumadin anticoagulant coagulation. Zosyn, IV Solu-Medrol 31 g every 8 hours, Pulmicort, and DuoNeb nebulized treatments. On 12/07/2017 patient is seen post synchronized cardioversion for atrial fibrillation with RVR. Patient was successfully cardioverted with 360 J 1. Currently in sinus rhythm with a rate of 87 BPM. Hemodynamically stable, BP is 10/07/1955, she remains on BiPAP support, with pressures of 14/5, and FiO2 of 40 %. She is not on any maintenance drips, IV LR infusing at 20 ML per hour. Lung sounds are positive for scattered rhonchi, good air entry bilaterally, no wheezes noted. Today's chest x-ray shows stable diffuse bilateral areas of infiltrate and pleural effusions. Patient has been diuresed with IV Lasix of 40 mg every 12 hours in addition to Zaroxolyn 5 mg daily. Today's lab work shows WBC trending down, down to 17.0 from 22.6, hemoglobin is stable at 9.4, sodium is 138, potassium is 3.8, chloride is 95, CO2 is 40, BUN is 54, creatinine is 0.80. Urine culture is positive for E. coli and Serratia marcescens both of which are sensitive to Zosyn, which the patient has been on since 12/04/2017. Patient continues on IV steroids, DuoNeb, Pulmicort. She remains anticoagulated with warfarin, INR today is at 3.8. Objective - Vital Signs Vital signs: Vital Signs Temp 98.2 F 12/07/17 08:00 Pulse 85 12/07/17 08:37 Resp 14 12/07/17 08:00 BP 107/63 12/07/17 08:00 Pulse Ox 98 12/07/17 08:00 Intake & Output 12/06/17 12/07/17 12/07/17 18:59 06:59 18:59 Intake Total 87.5 502.5 70 Output Total 2300 1025 150 Balance -2212.5 -522.5 -80 Weight 103 kg Intake: IV 87.5 262.5 70 Lactated Ringers 1,000 ml 150 20 @ 20 mls/hr IV .Q24H [facility] Rx#:[id number] Piperacillin-Tazobactam 3 87.5 62.5 .375 gm In Dextrose/Water 1 50ml.bag @ 12.5 mls/hr IVPB Q8HR [facility] Rx#: [id number] Potassium Chloride 10 meq 50 50 In Sodium Chloride 0.9% 100 ml @ 100 mls/hr IV Q1H [facility] Rx#:[id number] Oral 240 Output: Urine 2300 1025 150 Other: Voiding Method Bedpan Bedpan ABP, PAP, CO, CI - Last Documented Arterial Blood Pressure 110/60 Pulmonary Artery Pressure 38/33 Cardiac Output 5.8 Cardiac Index 2.9 - Exam GENERAL EXAM: Alert, pleasant, 67-year-old white female, in no apparent distress , currently on BiPAP with pressures of 14/5 and FiO2 of 40%. She is to be fairly comfortable on BiPAP support. HEAD: Normocephalic. EYES: Normal reaction of pupils, equal size. NOSE: Clear with pink turbinates. THROAT: No erythema or exudates. NECK: No masses, no JVD. CHEST: No chest wall deformity. Midsternal incision is well approximated, there are small amount of drainage at the distal end of the incision with serous drainage. The incision is covered with the dressing. Heart Hugger is in place LUNGS: Equal air entry with scattered rhonchi bilaterally CVS: S1 and S2, irregular with no audible murmur, irregular rhythm. ABDOMEN: No hepatosplenomegaly, normal bowel sounds, no guarding or rigidity. SPINE: No scoliosis or deformity SKIN: No rashes CENTRAL NERVOUS SYSTEM: No focal deficits, tone is normal in all 4 extremities. EXTREMITIES: There is no peripheral edema. No clubbing, no cyanosis. Peripheral pulses are intact. Left-sided PICC line present - Labs CBC & Chem 7: 12/07/17 04:00 12/07/17 04:00 Labs: Abnormal Lab Results - Last 24 Hours (Table) 12/06/17 12/06/17 12/06/17 Range/Units 12:16 17:16 20:26 WBC (3.8-10.6) k/uL RBC (3.80-5.40) m/uL Hgb (11.4-16.0) gm/dL Hct (34.0-46.0) % RDW (11.5-15.5) % Neutrophils # (1.3-7.7) k/uL Lymphocytes # (1.0-4.8) k/uL PT (9.0-12.0) sec INR (<1.2) Chloride (98-107) mmol/L Carbon Dioxide (22-30) mmol/L BUN (7-17) mg/dL Glucose (74-99) mg/dL POC Glucose (mg/dL) 104 H 121 H 129 H (75-99) mg/dL AST (14-36) U/L Total Protein (6.3-8.2) g/dL Albumin (3.5-5.0) g/dL 12/07/17 12/07/17 12/07/17 Range/Units 04:00 04:00 04:00 WBC 17.0 H (3.8-10.6) k/uL RBC 3.45 L (3.80-5.40) m/uL Hgb 9.4 L (11.4-16.0) gm/dL Hct 29.8 L (34.0-46.0) % RDW 17.4 H (11.5-15.5) % Neutrophils # 16.1 H (1.3-7.7) k/uL Lymphocytes # 0.3 L (1.0-4.8) k/uL PT 33.7 H (9.0-12.0) sec INR 3.8 H (<1.2) Chloride 95 L (98-107) mmol/L Carbon Dioxide 40 H* (22-30) mmol/L BUN 54 H (7-17) mg/dL Glucose 107 H (74-99) mg/dL POC Glucose (mg/dL) (75-99) mg/dL AST 49 H (14-36) U/L Total Protein 5.4 L (6.3-8.2) g/dL Albumin 2.5 L (3.5-5.0) g/dL 12/07/17 Range/Units 07:13 WBC (3.8-10.6) k/uL RBC (3.80-5.40) m/uL Hgb (11.4-16.0) gm/dL Hct (34.0-46.0) % RDW (11.5-15.5) % Neutrophils # (1.3-7.7) k/uL Lymphocytes # (1.0-4.8) k/uL PT (9.0-12.0) sec INR (<1.2) Chloride (98-107) mmol/L Carbon Dioxide (22-30) mmol/L BUN (7-17) mg/dL Glucose (74-99) mg/dL POC Glucose (mg/dL) 108 H (75-99) mg/dL AST (14-36) U/L Total Protein (6.3-8.2) g/dL Albumin (3.5-5.0) g/dL Microbiology - Last 24 Hours (Table) 12/04/17 10:00 Urine Culture - Final Urine,Voided Escherichia coli Serratia marcescens Assessment and Plan Plan: Assessment: #1. Severe mitral valve regurgitation, status post mitral valve replacement, with Maze procedure, left atrial appendage exclusion, and one-vessel bypass, postop day 11 #2. Postoperative respiratory failure with failure to wean, with extubation occurring on 11/30/2017, currently on BiPAP support with pressures 14 over 4, FiO2 40% #3. Chest x-ray evidence of fluid overload, bilateral pleural effusions right greater than left, patient is being diuresed with a combination of Lasix and metolazone, remains in negative fluid balance #4. acute urinary tract infection, urine culture positive for E. coli and Serratia marcescens both of which are sensitive to Zosyn, which the patient is currently on #5. Acute blood loss anemia requiring blood transfusion, today's hemoglobin is 9.4 #6. History of hypertension #7. History of severe mitral regurgitation #8. History of left subclavian stenosis #9. Paroxysmal atrial fibrillation, anticoagulated with warfarin, awaiting cardioversion on 12/07/2017 #10. History of GI bleed #11. Obesity #12. Possible aspiration with aspiration pneumonia, currently on Zosyn. Plan: Patient has been successfully cardioverted to sinus rhythm this morning. Tolerated procedure well, hemodynamically stable, afebrile. Continue current plan of care, continue Zosyn for the evidence of acute urinary tract infection with E. coli and Serratia marcescens in the urine culture. IV diuresis with a combination of IV Lasix and metolazone. Patient is maintaining negative fluid balance. Continue nebulized treatments, IV steroids. Will give the patient a trial on nasal cannula, and observe for response. Chest x-ray has been reviewed , bilateral pleural effusions remains stable in appearance. I performed a history & physical examination of the patient and discussed their management with my nurse practitioner, Yuliet Lopez. I reviewed the nurse practitioner's note and agree with the documented findings and plan of care. Lung sounds are positive for scattered rhonchi bilaterally. The findings and the impression was discussed with the patient. I attest to the documentation by the nurse practitioner. Time with Patient: Greater than 30
--- NOTE | 2017-12-07 10:33 | P.PN ---
<Parris Dawkins - Last Filed: 12/07/17 10:29> Subjective Progress Note Date: 12/07/17 Principal diagnosis: Severe mitral regurgitation. Coronary artery disease. Paroxysmal atrial fibrillation on Coumadin for anticoagulation. Recent hospitalization for lower GI bleed, duodenal ulcer. History of left subclavian stenosis with stent placement 2014 with recent discovery of critical re-in-stent stenosis. Previous tobacco dependence with preoperative FEV1 60% of predicted. Hypertension. Hyperlipidemia. Gallbladder disease. Family history of heart disease. Preoperative nasal swab positive for MRSA. Preoperative anemia. POD #12 mitral valve replacement using a 25 mm [place]era bioprosthetic tissue valve. Coronary artery bypass grafting 1, reverse saphenous vein graft to the obtuse marginal artery. Maze procedure. Endoscopic harvesting of the right greater saphenous vein. Epi-aortic ultrasound. Intraoperative transesophageal echocardiogram. Ligation of the left atrial appendage using a 40 mm AtriClip. Intraoperative left ventricular wall tear, an unexpected but potential outcome of surgery Acute blood loss anemia, and expected outcome given patient's preoperative anemia and intraoperative bleeding. Postoperative prolonged mechanical ventilation secondary to hemodynamic instability, and unexpected but potential outcome of surgery given the extensive nature of her perioperative course The patient's currently sitting up in bed in no acute distress. Continues to use BiPAP at night, alternates between high flow nasal cannula and BiPAP during the day. Continues to have episodes of tachycardia despite med adjustments. States pain is controlled with current medication regimen, complains of occasional shortness of breath. States she is starting to feel little frustrated how long taking to feel better. Dr. Crawley in this morning to perform cardioversion, successful conversion to sinus rhythm at this time. Objective - Vital Signs Vital signs: Vital Signs Temp 98.2 F 12/07/17 08:00 Pulse 85 12/07/17 08:37 Resp 14 12/07/17 08:00 BP 107/63 12/07/17 08:00 Pulse Ox 98 12/07/17 08:00 Intake & Output 12/06/17 12/07/17 12/07/17 18:59 06:59 18:59 Intake Total 87.5 502.5 70 Output Total 2300 1025 150 Balance -2212.5 -522.5 -80 Weight 103 kg Intake: IV 87.5 262.5 70 Lactated Ringers 1,000 ml 150 20 @ 20 mls/hr IV .Q24H [facility] Rx#:[id number] Piperacillin-Tazobactam 3 87.5 62.5 .375 gm In Dextrose/Water 1 50ml.bag @ 12.5 mls/hr IVPB Q8HR [facility] Rx#: [id number] Potassium Chloride 10 meq 50 50 In Sodium Chloride 0.9% 100 ml @ 100 mls/hr IV Q1H [facility] Rx#:[id number] Oral 240 Output: Urine 2300 1025 150 Other: Voiding Method Bedpan Bedpan ABP, PAP, CO, CI - Last Documented Arterial Blood Pressure 110/60 Pulmonary Artery Pressure 38/33 Cardiac Output 5.8 Cardiac Index 2.9 - Constitutional General appearance: Present: cooperative, no acute distress, obese - Respiratory Details: Lungs sounds diminished bilaterally. Respirations even, nonlabored. Currently on BiPAP with oxygen saturation 97%. BiPAP is at 40%, 14/02. - Cardiovascular Details: S1, S2 present. Regular rate and rhythm, currently sinus rhythm after cardioversion, was in uncontrolled atrial fibrillation this morning. 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 Heart hugger in place with patient using appropriately. Palpable peripheral pulses bilaterally. Generalized edema present. No calf pain or tenderness noted. Antiembolism stockings, SCDs present. Left brachial PICC line present. - Gastrointestinal Gastrointestinal Comment(s): Abdomen soft, nontender, nondistended. Active bowel sounds 4 quadrants. Tolerating diet. - Genitourinary Genitourinary Comment(s): Continues to void clear, yellow urine. - Integumentary Integumentary Comment(s): Skin is warm and dry with evidence of good perfusion. Sternal incision draining in the distal portion, reddish drainage. 3 small openings present in sternal incison, the most distal is the largest, the proximal 2 are only pinhole size. Left lower extremity EVH site well approximated.Patient does have open area on her mid lower back in a skin fold, covered with dry dressing. - Neurologic Neurologic: Present: CNII-XII intact - Musculoskeletal Musculoskeletal: Present: generalized weakness - Psychiatric Psychiatric: Present: A&O x's 3, appropriate affect, intact judgment & insight - Allied health notes Allied health notes reviewed: nursing - Labs CBC & Chem 7: 12/07/17 04:00 12/07/17 04:00 Labs: Abnormal Lab Results - Last 24 Hours (Table) 12/06/17 12/06/17 12/06/17 Range/Units 12:16 17:16 20:26 WBC (3.8-10.6) k/uL RBC (3.80-5.40) m/uL Hgb (11.4-16.0) gm/dL Hct (34.0-46.0) % RDW (11.5-15.5) % Neutrophils # (1.3-7.7) k/uL Lymphocytes # (1.0-4.8) k/uL PT (9.0-12.0) sec INR (<1.2) Chloride (98-107) mmol/L Carbon Dioxide (22-30) mmol/L BUN (7-17) mg/dL Glucose (74-99) mg/dL POC Glucose (mg/dL) 104 H 121 H 129 H (75-99) mg/dL AST (14-36) U/L Total Protein (6.3-8.2) g/dL Albumin (3.5-5.0) g/dL 12/07/17 12/07/17 12/07/17 Range/Units 04:00 04:00 04:00 WBC 17.0 H (3.8-10.6) k/uL RBC 3.45 L (3.80-5.40) m/uL Hgb 9.4 L (11.4-16.0) gm/dL Hct 29.8 L (34.0-46.0) % RDW 17.4 H (11.5-15.5) % Neutrophils # 16.1 H (1.3-7.7) k/uL Lymphocytes # 0.3 L (1.0-4.8) k/uL PT 33.7 H (9.0-12.0) sec INR 3.8 H (<1.2) Chloride 95 L (98-107) mmol/L Carbon Dioxide 40 H* (22-30) mmol/L BUN 54 H (7-17) mg/dL Glucose 107 H (74-99) mg/dL POC Glucose (mg/dL) (75-99) mg/dL AST 49 H (14-36) U/L Total Protein 5.4 L (6.3-8.2) g/dL Albumin 2.5 L (3.5-5.0) g/dL 12/07/17 Range/Units 07:13 WBC (3.8-10.6) k/uL RBC (3.80-5.40) m/uL Hgb (11.4-16.0) gm/dL Hct (34.0-46.0) % RDW (11.5-15.5) % Neutrophils # (1.3-7.7) k/uL Lymphocytes # (1.0-4.8) k/uL PT (9.0-12.0) sec INR (<1.2) Chloride (98-107) mmol/L Carbon Dioxide (22-30) mmol/L BUN (7-17) mg/dL Glucose (74-99) mg/dL POC Glucose (mg/dL) 108 H (75-99) mg/dL AST (14-36) U/L Total Protein (6.3-8.2) g/dL Albumin (3.5-5.0) g/dL Microbiology - Last 24 Hours (Table) 12/04/17 10:00 Urine Culture - Final Urine,Voided Escherichia coli Serratia marcescens - Imaging and Cardiology Chest x-ray: report reviewed, image reviewed Assessment and Plan (1) Acute blood loss anemia Current Visit: Yes Status: Acute Code(s): D62 - ACUTE POSTHEMORRHAGIC ANEMIA SNOMED Code(s): 687931240 (2) CAD (coronary artery disease) Current Visit: Yes Status: Chronic Code(s): I25.10 - ATHSCL HEART DISEASE OF [place] CORONARY ARTERY W/O ANG PCTRS SNOMED Code(s): 19477680 (3) Hyperlipidemia Current Visit: Yes Status: Chronic Code(s): E78.5 - HYPERLIPIDEMIA, UNSPECIFIED SNOMED Code(s): 01092965 (4) Hypertension Current Visit: Yes Status: Chronic Code(s): I10 - ESSENTIAL (PRIMARY) HYPERTENSION SNOMED Code(s): 76232009 (5) Severe mitral regurgitation Current Visit: Yes Status: Chronic Code(s): I34.0 - NONRHEUMATIC MITRAL ( VALVE) INSUFFICIENCY SNOMED Code(s): 20556235 (6) Stenosis of left subclavian artery Current Visit: Yes Status: Chronic Code(s): I77.1 - STRICTURE OF ARTERY SNOMED Code(s): 724978594 (7) Paroxysmal atrial fibrillation Current Visit: No Status: Resolved Code(s): I48.0 - PAROXYSMAL ATRIAL FIBRILLATION SNOMED Code(s): 981591472 (8) History of GI bleed Current Visit: No Status: Resolved Code(s): Z87.19 - PERSONAL HISTORY OF OTHER DISEASES OF THE DIGESTIVE SYSTEM SNOMED Code(s): 173216467 (9) Family history of coronary artery disease Current Visit: Yes Status: Chronic Code(s): Z82.49 - FAMILY HX OF ISCHEM HEART DIS AND OTH DIS OF THE CIRC SYS SNOMED Code(s): 360299007 Plan: 1. Continue baby aspirin, statin, beta krunal. Will increase beta krunal therapy as tolerated. 2. Continue amiodarone for history of paroxysmal atrial fibrillation on home amiodarone. We'll give 300 mg of IV amiodarone today, hold oral amiodarone until tomorrow per Dr. Crawley's recommendations. Patient was cardioverted this morning to normal sinus rhythm. 3. Wean O2 as tolerated. BiPAP management per pulmonology. Encourage incentive spirometry use 10x every hour. 4. Urine culture positive for E. coli and Serratia, both of which are sensitive to Zosyn. Patient has remained afebrile. Continue Zosyn. 5. Will culture sternal incision. 6. Will monitor labs, chest x-rays. 7. Bronchodilators, steroids per pulmonology. 8. Daily Coumadin dosing per PT and INR. Cardiothoracic surgery will manage dosing while she is inpatient, outpatient management to be done by cardiology. 9. GI/DVT prophylaxis. 10. Increase activity as tolerated. PT/OT/cardiac rehab following. 11. Keep patient in the ICU for another day for close monitoring. 12. More recommendations as patient progresses. Time with Patient: Greater than 30 <Dion Back - Last Filed: 12/07/17 16:29> Objective - Vital Signs Vital signs: Vital Signs Temp 98.2 F 12/07/17 08:00 Pulse 89 12/07/17 08:54 Resp 14 12/07/17 08:00 BP 107/63 12/07/17 08:00 Pulse Ox 98 12/07/17 08:00 Intake & Output 12/06/17 12/07/17 12/07/17 18:59 06:59 18:59 Intake Total 87.5 502.5 227.5 Output Total 2300 1025 1300 Balance -2212.5 -522.5 -1072.5 Weight 103 kg 103 kg Intake: IV 87.5 262.5 227.5 Lactated Ringers 1,000 ml 150 40 @ 20 mls/hr IV .Q24H [facility] Rx#:[id number] Piperacillin-Tazobactam 3 87.5 62.5 37.5 .375 gm In Dextrose/Water 1 50ml.bag @ 12.5 mls/hr IVPB Q8HR [facility] Rx#: [id number] Potassium Chloride 10 meq 50 150 In Sodium Chloride 0.9% 100 ml @ 100 mls/hr IV Q1H [facility] Rx#:[id number] Oral 240 Output: Urine 2300 1025 1300 Other: Voiding Method Bedpan Bedpan ABP, PAP, CO, CI - Last Documented Arterial Blood Pressure 110/60 Pulmonary Artery Pressure 38/33 Cardiac Output 5.8 Cardiac Index 2.9 - Labs CBC & Chem 7: 12/07/17 04:00 12/07/17 04:00 Labs: Abnormal Lab Results - Last 24 Hours (Table) 12/06/17 12/06/17 12/07/17 Range/Units 17:16 20:26 04:00 WBC (3.8-10.6) k/uL RBC (3.80-5.40) m/uL Hgb (11.4-16.0) gm/dL Hct (34.0-46.0) % RDW (11.5-15.5) % Neutrophils # (1.3-7.7) k/uL Lymphocytes # (1.0-4.8) k/uL PT 33.7 H (9.0-12.0) sec INR 3.8 H (<1.2) Chloride (98-107) mmol/L Carbon Dioxide (22-30) mmol/L BUN (7-17) mg/dL Glucose (74-99) mg/dL POC Glucose (mg/dL) 121 H 129 H (75-99) mg/dL AST (14-36) U/L Total Protein (6.3-8.2) g/dL Albumin (3.5-5.0) g/dL 12/07/17 12/07/17 12/07/17 Range/Units 04:00 04:00 07:13 WBC 17.0 H (3.8-10.6) k/uL RBC 3.45 L (3.80-5.40) m/uL Hgb 9.4 L (11.4-16.0) gm/dL Hct 29.8 L (34.0-46.0) % RDW 17.4 H (11.5-15.5) % Neutrophils # 16.1 H (1.3-7.7) k/uL Lymphocytes # 0.3 L (1.0-4.8) k/uL PT (9.0-12.0) sec INR (<1.2) Chloride 95 L (98-107) mmol/L Carbon Dioxide 40 H* (22-30) mmol/L BUN 54 H (7-17) mg/dL Glucose 107 H (74-99) mg/dL POC Glucose (mg/dL) 108 H (75-99) mg/dL AST 49 H (14-36) U/L Total Protein 5.4 L (6.3-8.2) g/dL Albumin 2.5 L (3.5-5.0) g/dL 12/07/17 Range/Units 12:07 WBC (3.8-10.6) k/uL RBC (3.80-5.40) m/uL Hgb (11.4-16.0) gm/dL Hct (34.0-46.0) % RDW (11.5-15.5) % Neutrophils # (1.3-7.7) k/uL Lymphocytes # (1.0-4.8) k/uL PT (9.0-12.0) sec INR (<1.2) Chloride (98-107) mmol/L Carbon Dioxide (22-30) mmol/L BUN (7-17) mg/dL Glucose (74-99) mg/dL POC Glucose (mg/dL) 152 H (75-99) mg/dL AST (14-36) U/L Total Protein (6.3-8.2) g/dL Albumin (3.5-5.0) g/dL Microbiology - Last 24 Hours (Table) 12/04/17 10:00 Urine Culture - Final Urine,Voided Escherichia coli Serratia marcescens Assessment and Plan Plan: The patient was seen and examined. I agree with the above assessment and plan. The patient remains somewhat dyspneic with minimal activity. She alternates between BiPAP and nasal cannula. She is sitting in a chair position. She did undergo synchronous cardioversion this morning. She is currently in normal sinus rhythm. She remains on amiodarone, metoprolol, and Coumadin. Her chest x -ray and laboratory studies were personally reviewed. We are continuing to diurese her and she has had a good response. Her white count remains elevated but is trending down. She has had increased drainage from her sternal wound. The inferior portion of the wound was opened slightly this afternoon and cultures were obtained. We will start packing the inferior portion of her wound today. Otherwise we'll continue with antibiotics. I think she should remain in the ICU for now.
[2017-12-07] MEDS: HYDROcodone/APAP 5-325MG 1 EACH TAB PO PRN ×3 (10:48→23:21)
--- NOTE | 2017-12-07 12:18 | P.PCN ---
Preoperative Diagnosis: Procedure: Electrical Cardioversion for atrial fibrillation Indication for procedure drug refractory atrial fibrillation with RVR despite maze procedure intraoperatively Procedure Successful electrical cardioversion with a 360 J biphasic shock 1 into sinus rhythm. Brief burst of atrial tachycardia and resumption of sinus rhythm once again. Suggest Instrument of by mouth amiodarone give 300 mg of IV amiodarone today for over an hour and then resume by mouth amiodarone at the same dose as before Reevaluate symptoms of postoperative shortness of breath while in sinus rhythm
[2017-12-07 12:26] LABS: Glucose,Whole Blood 152 mg/dL (75-99)
[2017-12-07] MEDS: SODIUM CHLORIDE 0.9% 1,000 ML IV SCH (13:00)
[2017-12-07 17:11] LABS: Glucose,Whole Blood 133 mg/dL (75-99)
--- NOTE | 2017-12-07 17:32 | P.PN ---
Subjective Progress Note Date: 12/06/17 Progress note being dictated for Dr. Lugo. Interval history: This is 67-year-old female status post CABG, mitral valve replacement, status post multiple blood products transfusions. Remains vent dependent on 40% FiO2/+5 of PEEP. Chest x-ray reporting fluid overload, improvement in volume status, aeration.Maintained on norepinephrine, Primacor, dopamine and insulin drip. Cardiac index 2.7. Telemetry atrial flutter/sinus tach. Tube feeding initiated via OG tube. Hemoglobin 7.3, Platelets decreased to 64 today, maintained on low-dose aspirin. Review systems unable to obtain as patient sedated and on mechanical ventilation. Active Medications Albuterol/Ipratropium (Duoneb 0.5 Mg-3 Mg/3 Ml Soln) 3 ml INHALATION RT-Q4H [facility] Last Admin: 11/29/17 15:17 Dose: 3 ml Albuterol/Ipratropium (Duoneb 0.5 Mg-3 Mg/3 Ml Soln) 3 ml INHALATION RT-Q2H PRN PRN Reason: Shortness Of Breath Or Wheezing Amiodarone HCl (Cordarone) 200 mg PO BID [facility] Aspirin (Aspirin) 81 mg PO DAILY [facility] Last Admin: 11/29/17 08:54 Dose: 81 mg Atorvastatin Calcium (Lipitor) 40 mg PO DAILY [facility] Last Admin: 11/29/17 08:54 Dose: 40 mg Benzocaine/Menthol (Cepacol Lozenge) 1 each MUCOUS MEM Q2H PRN PRN Reason: Sore Throat Bisacodyl (Dulcolax) 10 mg RECTAL DAILY PRN PRN Reason: Constipation Chlorhexidine Gluconate (Peridex) 15 ml MUCOUS MEM BID [facility] Last Admin: 11/29/17 08:48 Dose: 15 ml Furosemide (Lasix) 40 mg IV ONCE ONE Stop: 11/29/17 20:01 Propofol 1,000 mg/ IV Solution 100 mls @ 0 mls/hr IV .Q0M [facility]; Titrate PRN Reason: Protocol Last Admin: 11/29/17 17:54 Dose: 26.13 mcg/kg/min, 17.2 mls/hr Norepinephrine Bitartrate (Levophed-0.9% Nacl 16 Mg/250ml Pmx) 16 mg in 250 mls @ 0 mls/hr IV .Q0M [facility]; Titrate PRN Reason: Protocol Last Admin: 11/29/17 17:54 Dose: 2 mcg/min, 1.875 mls/hr Sodium Chloride (Saline 0.45%) 1,000 mls @ 30 mls/hr IV .Q24H [facility] Last Admin: 11/29/17 10:28 Dose: Not Given Milrinone Lactate/Dextrose 20 (mg/ IV Solution) 100 mls @ 6.58 mls/hr IV .[id number] [facility] PRN Reason: 0.2 MCG/KG/MIN Last Admin: 11/29/17 15:38 Dose: 0.2 mcg/kg/min, 6.58 mls/hr Insulin Aspart (Novolog) 0 unit SQ Q6HR [facility] PRN Reason: Protocol Last Admin: 11/29/17 12:36 Dose: Not Given Magnesium Hydroxide (Milk Of Magnesia) 2,400 mg PO BID PRN PRN Reason: Constipation Metoprolol Tartrate (Lopressor) 12.5 mg PO BID [facility] Last Admin: 11/29/17 08:55 Dose: 12.5 mg Miscellaneous Information (Magnesium Per Protocol) 1 each MISCELLANE DAILY PRN ; Protocol PRN Reason: Per Protocol Miscellaneous Information (Phosphorus Per Protocol) 1 each MISCELLANE DAILY PRN ; Protocol PRN Reason: Per Protocol Miscellaneous Information (Potassium Per Protocol) 1 each MISCELLANE DAILY PRN ; Protocol PRN Reason: Per Protocol Miscellaneous Information (Potassium Per Protocol) 1 each MISCELLANE DAILY PRN ; Protocol PRN Reason: Per Protocol Morphine Sulfate (Morphine Oral Dana 2mg/Ml) 6 mg PO Q2H PRN PRN Reason: Severe Pain Ondansetron HCl (Zofran) 4 mg IVP Q6HR PRN PRN Reason: Nausea And Vomiting Pantoprazole Sodium (Protonix) 40 mg IVP DAILY [facility] Last Admin: 11/29/17 08:55 Dose: 40 mg Senna/Docusate Sodium (Senokot-S) 2 each PO HS [facility] Last Admin: 11/28/17 20:41 Dose: 2 each Sodium Chloride (Saline Flush) 10 ml IV BID [facility] Last Admin: 11/29/17 08:56 Dose: 10 ml 11/30/2017 Chest x-ray reporting increased congestion, received additional Lasix. extubated this morning, currently maintained on BiPAP. Norepinephrine weaned off this morning. Maintained on Primacor, cardiac index 2.6. Received 1 dose of Lasix IV push. Renal function improving. Hemoglobin 7, platelets increased to 74. Atrial flutter per telemetry. Review systems unable to obtain as patient BiPAP dependent. Active Medications Generic Name Dose Route Start Last Admin Trade Name Freq PRN Reason Stop Dose Admin Albuterol/Ipratropium 3 ml 11/25/17 20:00 11/30/17 15:23 Duoneb 0.5 Mg-3 Mg/3 Ml Soln INHALATION 3 ml RT-Q4H CARLEE Administration Albuterol/Ipratropium 3 ml 11/26/17 17:53 Duoneb 0.5 Mg-3 Mg/3 Ml Soln INHALATION RT-Q2H PRN Shortness Of Breath Or Wheezing Amiodarone HCl 200 mg 11/29/17 21:00 11/30/17 08:14 Cordarone PO 200 mg BID CARLEE Administration Aspirin 81 mg 11/26/17 10:15 11/30/17 08:15 Aspirin PO 81 mg DAILY CARLEE Administration Atorvastatin Calcium 40 mg 11/26/17 09:00 11/30/17 08:14 Lipitor PO 40 mg DAILY CAR[facility]E Administration Benzocaine/Menthol 1 each 11/25/17 19:03 Cepacol Lozenge MUCOUS MEM Q2H PRN Sore Throat Bisacodyl 10 mg 11/26/17 17:52 Dulcolax RECTAL DAILY PRN Constipation Fondaparinux 2.5 mg 11/30/17 11:30 11/30/17 13:23 Arixtra SQ 2.5 mg DAILY CARLEE Administration Norepinephrine Bitartrate 16 mg in 250 mls @ 0 mls/hr 11/26/17 04:15 11:58 Levophed-0.9% Nacl 16 Mg/250ml Pmx IV 0 mcg/min .Q0M CARLEE 0 mls/hr Protocol Titration Titrate Sodium Chloride 1,000 mls @ 10 mls/hr 11/26/17 10:15 11/30/17 12:51 Saline 0.45% IV Not Given .Q24H [facility] Milrinone Lactate/Dextrose 20 100 mls @ 6.58 mls/hr 11/29/17 15:00 11/30/17 08:16 mg/ IV Solution IV 0.2 mcg/kg/min .[id number] CARLEE 6.58 mls/hr 0.2 MCG/KG/MIN Infusion Insulin Aspart 0 unit 11/29/17 12:00 11/30/17 12:50 Novolog SQ Not Given Q6HR [facility] Protocol Magnesium Hydroxide 2,400 mg 11/26/17 17:53 Milk Of Magnesia PO BID PRN Constipation Metoprolol Tartrate 12.5 mg 11/26/17 09:00 11/30/17 08:15 Lopressor PO 12.5 mg BID CARLEE Administration Miscellaneous Information 1 each 11/25/17 19:03 Magnesium Per Protocol MISCELLANE DAILY PRN Per Protocol Protocol Miscellaneous Information 1 each 11/25/17 19:03 Phosphorus Per Protocol MISCELLANE DAILY PRN Per Protocol Protocol Miscellaneous Information 1 each 11/25/17 19:03 Potassium Per Protocol MISCELLANE DAILY PRN Per Protocol Protocol Miscellaneous Information 1 each 11/29/17 12:01 Potassium Per Protocol MISCELLANE DAILY PRN Per Protocol Protocol Morphine Sulfate 6 mg 11/29/17 13:31 Morphine Oral Dnaa 2mg/Ml PO Q2H PRN Severe Pain Ondansetron HCl 4 mg 11/25/17 19:03 Zofran IVP Q6HR PRN Nausea And Vomiting Pantoprazole Sodium 40 mg 11/26/17 09:00 11/30/17 08:15 Protonix IVP 40 mg DAILY CARLEE Administration Senna/Docusate Sodium 2 each 11/26/17 21:00 11/29/17 20:40 Senokot-S PO 2 each HS CARLEE Administration Sodium Chloride 10 ml 11/25/17 21:00 11/30/17 08:15 Saline Flush IV 10 ml BID CARLEE Administration 12/01/2017 Breathing improving, weaned off of BiPAP and down to 6 L high flow. Wheezing resolved. Chest x-ray reports improvement. Staff reports patient appeared to be choking on pills last night, speech therapy consulted. Receiving one unit of packed RBCs for hemoglobin of 6.7. Mediastinal chest tubes discontinued, left pleural chest tube remains. Maintained on Primacor. Telemetry atrial flutter. Review of systems: CONSTITUTIONAL: No fever, no malaise HEENT: No recent visual problems or hearing problems. Denied any sore throat. CARDIOVASCULAR: No chest pain, no palpitations, no syncope. PULMONARY: Improving shortness of breath, no cough, no hemoptysis. GASTROINTESTINAL: No diarrhea, no nausea, no vomiting, no abdominal pain. Normoactive bowel sounds. NEUROLOGICAL: No headaches, diffuse weakness, no numbness. HEMATOLOGICAL: Denies any bleeding or petechiae. GENITOURINARY: Denies any burning micturition, frequency, or urgency. ENDOCRINE: Denies any polyuria or polydipsia. PSYCHIATRIC: No anxiety, no depression Active Medications Hydrocodone Bitart/Acetaminophen ([place] 5-325) 1 each PO Q4HR PRN PRN Reason: MILD TO MODERATE Pain Last Admin: 12/01/17 22:44 Dose: 1 each Hydrocodone Bitart/Acetaminophen ([place] 5-325) 2 each PO Q4HR PRN PRN Reason: MODERATE TO SEVERE Pain Albuterol/Ipratropium (Duoneb 0.5 Mg-3 Mg/3 Ml Soln) 3 ml INHALATION RT-Q4H [facility] Last Admin: 12/02/17 15:06 Dose: 3 ml Albuterol/Ipratropium (Duoneb 0.5 Mg-3 Mg/3 Ml Soln) 3 ml INHALATION RT-Q2H PRN PRN Reason: Shortness Of Breath Or Wheezing Last Admin: 12/01/17 18:09 Dose: 3 ml Amiodarone HCl (Cordarone) 200 mg PO BID [facility] Last Admin: 12/02/17 08:10 Dose: 200 mg Aspirin (Aspirin) 81 mg PO DAILY [facility] Last Admin: 12/02/17 08:10 Dose: 81 mg Atorvastatin Calcium (Lipitor) 40 mg PO DAILY [facility] Last Admin: 12/02/17 08:10 Dose: 40 mg Benzocaine/Menthol (Cepacol Lozenge) 1 each MUCOUS MEM Q2H PRN PRN Reason: Sore Throat Bisacodyl (Dulcolax) 10 mg RECTAL DAILY PRN PRN Reason: Constipation Budesonide (Pulmicort) 1 mg INHALATION RT-BID [facility] Last Admin: 12/02/17 07:19 Dose: 1 mg Fondaparinux (Arixtra) 2.5 mg SQ DAILY [facility] Last Admin: 12/02/17 08:10 Dose: 2.5 mg Formoterol Fumarate (Perforomist) 20 mcg INHALATION RT-BID [facility] Last Admin: 12/02/17 07:36 Dose: 20 mcg Norepinephrine Bitartrate (Levophed-0.9% Nacl 16 Mg/250ml Pmx) 16 mg in 250 mls @ 0 mls/hr IV .Q0M [facility]; Titrate PRN Reason: Protocol Last Titration: 11/30/17 11:58 Dose: 0 mcg/min, 0 mls/hr Sodium Chloride (Saline 0.45%) 1,000 mls @ 10 mls/hr IV .Q24H [facility] Last Admin: 12/01/17 14:04 Dose: 10 mls/hr Milrinone Lactate/Dextrose 20 (mg/ IV Solution) 100 mls @ 6.58 mls/hr IV .[id number] [facility] PRN Reason: 0.2 MCG/KG/MIN Last Admin: 12/02/17 08:57 Dose: 0.2 mcg/kg/min, 6.58 mls/hr Insulin Aspart (Novolog) 0 unit SQ Q6HR [facility] PRN Reason: Protocol Last Admin: 12/02/17 12:53 Dose: Not Given Magnesium Hydroxide (Milk Of Magnesia) 2,400 mg PO BID PRN PRN Reason: Constipation Methylprednisolone Sodium Succinate (Solu-Medrol) 30 mg IV Q8HR [facility] Last Admin: 12/02/17 08:10 Dose: 30 mg Metoprolol Tartrate (Lopressor) 25 mg PO BID [facility] Last Admin: 12/02/17 08:59 Dose: 25 mg Miscellaneous Information (Magnesium Per Protocol) 1 each MISCELLANE DAILY PRN ; Protocol PRN Reason: Per Protocol Miscellaneous Information (Phosphorus Per Protocol) 1 each MISCELLANE DAILY PRN ; Protocol PRN Reason: Per Protocol Miscellaneous Information (Potassium Per Protocol) 1 each MISCELLANE DAILY PRN ; Protocol PRN Reason: Per Protocol Miscellaneous Information (Potassium Per Protocol) 1 each MISCELLANE DAILY PRN ; Protocol PRN Reason: Per Protocol Ondansetron HCl (Zofran) 4 mg IVP Q6HR PRN PRN Reason: Nausea And Vomiting Pantoprazole Sodium (Protonix) 40 mg IVP DAILY [facility] Last Admin: 12/02/17 08:10 Dose: 40 mg Senna/Docusate Sodium (Senokot-S) 2 each PO HS [facility] Last Admin: 12/01/17 21:55 Dose: 2 each Sodium Chloride (Saline Flush) 10 ml IV BID [facility] Last Admin: 12/02/17 12:51 Dose: 10 ml 12/02/17 Much more alert today. Oxygen weaned further down to 5 L nasal cannula, maintaining O2 sats in the high 90s. Pleural chest tube discontinued. Chest x- ray reporting probable right lower lobe atelectasis/effusion. Underwent modified barium swallow, with recommendations of regular diet, thin liquids, chin tuck, no straw, small bites/sepsis/sips; no impairment with exception of mild transient penetration with thin liquids which patient independently cleared. Yesterday receive 1 unit of packed RBCs with current hemoglobin 8. Weaning of Primacor in progress. 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 Review of systems: CONSTITUTIONAL: No fever, no malaise, no fatigue. HEENT: No recent visual problems or hearing problems. Denied any sore throat. CARDIOVASCULAR: No chest pain, no palpitations, no syncope. PULMONARY: Minimal shortness of breath, no cough, no hemoptysis. GASTROINTESTINAL: No diarrhea, no nausea, no vomiting, no abdominal pain. Normoactive bowel sounds. NEUROLOGICAL: No headaches, no weakness, no numbness. HEMATOLOGICAL: Denies any bleeding or petechiae. GENITOURINARY: Denies any burning micturition, frequency, or urgency. MUSCULOSKELETAL/RHEUMATOLOGICAL: Denies any joint pain, swelling, or any muscle pain. ENDOCRINE: Denies any polyuria or polydipsia. PSYCHIATRIC: No anxiety, no depression The rest of the 14 point review of systems is negative Active Medications Generic Name Dose Route Start Last Admin Trade Name Freq PRN Reason Stop Dose Admin Hydrocodone Bitart/Acetaminophen 1 each 12/01/17 12:20 12/01/17 22:44 [place] 5-325 PO 1 each Q4HR PRN Administration MILD TO MODERATE Pain Hydrocodone Bitart/Acetaminophen 2 each 12/01/17 12:20 [place] 5-325 PO Q4HR PRN MODERATE TO SEVERE Pain Albuterol/Ipratropium 3 ml 11/25/17 20:00 12/02/17 15:06 Duoneb 0.5 Mg-3 Mg/3 Ml Soln INHALATION 3 ml RT-Q4H CARLEE Administration Albuterol/Ipratropium 3 ml 11/26/17 17:53 12/01/17 18:09 Duoneb 0.5 Mg-3 Mg/3 Ml Soln INHALATION 3 ml RT-Q2H PRN Administration Shortness Of Breath Or Wheezing Amiodarone HCl 200 mg 11/29/17 21:00 12/02/17 08:10 Cordarone PO 200 mg BID CARLEE Administration Aspirin 81 mg 11/26/17 10:15 12/02/17 08:10 Aspirin PO 81 mg DAILY [facility]E Administration Atorvastatin Calcium 40 mg 11/26/17 09:00 12/02/17 08:10 Lipitor PO 40 mg DAILY [facility] Administration Benzocaine/Menthol 1 each 11/25/17 19:03 Cepacol Lozenge MUCOUS MEM Q2H PRN Sore Throat Bisacodyl 10 mg 11/26/17 17:52 Dulcolax RECTAL DAILY PRN Constipation Budesonide 1 mg 12/01/17 20:00 12/02/17 07:19 Pulmicort INHALATION 1 mg RT-BID CARLEE Administration Fondaparinux 2.5 mg 11/30/17 11:30 12/02/17 08:10 Arixtra SQ 2.5 mg DAILY [facility] Administration Formoterol Fumarate 20 mcg 12/01/17 20:00 12/02/17 07:36 Perforomist INHALATION 20 mcg RT-BID [facility]E Administration Norepinephrine Bitartrate 16 mg in 250 mls @ 0 mls/hr 11/26/17 04:15 11:58 Levophed-0.9% Nacl 16 Mg/250ml Pmx IV 0 mcg/min .Q0M [facility] 0 mls/hr Protocol Titration Titrate Sodium Chloride 1,000 mls @ 10 mls/hr 11/26/17 10:15 12/02/17 15:41 Saline 0.45% IV Not Given .Q24H [facility] Milrinone Lactate/Dextrose 20 100 mls @ 6.58 mls/hr 11/29/17 15:00 12/02/17 08:57 mg/ IV Solution IV 0.2 mcg/kg/min .[id number] [facility] 6.58 mls/hr 0.2 MCG/KG/MIN Administration Insulin Aspart 0 unit 11/29/17 12:00 12/02/17 12:53 Novolog SQ Not Given Q6HR [facility] Protocol Magnesium Hydroxide 2,400 mg 11/26/17 17:53 Milk Of Magnesia PO BID PRN Constipation Methylprednisolone Sodium Succinate 30 mg 12/01/17 16:00 12/02/17 08:10 Solu-Medrol IV 30 mg Q8HR CARLEE Administration Metoprolol Tartrate 25 mg 12/02/17 09:00 12/02/17 08:59 Lopressor PO 25 mg BID CARLEE Administration Miscellaneous Information 1 each 11/25/17 19:03 Magnesium Per Protocol MISCELLANE DAILY PRN Per Protocol Protocol Miscellaneous Information 1 each 11/25/17 19:03 Phosphorus Per Protocol MISCELLANE DAILY PRN Per Protocol Protocol Miscellaneous Information 1 each 11/25/17 19:03 Potassium Per Protocol MISCELLANE DAILY PRN Per Protocol Protocol Miscellaneous Information 1 each 11/29/17 12:01 Potassium Per Protocol MISCELLANE DAILY PRN Per Protocol Protocol Ondansetron HCl 4 mg 11/25/17 19:03 Zofran IVP Q6HR PRN Nausea And Vomiting Pantoprazole Sodium 40 mg 11/26/17 09:00 12/02/17 08:10 Protonix IVP 40 mg DAILY [facility]E Administration Senna/Docusate Sodium 2 each 11/26/17 21:00 12/01/17 21:55 Senokot-S PO 2 each HS CARLEE Administration Sodium Chloride 10 ml 11/25/17 21:00 12/02/17 12:51 Saline Flush IV 10 ml BID CARLEE Administration 12/03/17 maintained on nebulized bronchodilators, steroids,patient tachypneic, requiring BiPap throughout today off and on. Chest x-ray suggestive of fluid overload. Received additional Lasix. Maintained on oral amiodarone, remains in a-flutter. Overdrive atrial pacing attempted unsuccessfully. Digoxin 2 ordered. Pacer wires discontinued today. Stool at bedside with PT OT, remains extremely weak. Primacor weaned off yesterday. 2017 currently in atrial fibrillation with heart rates up into the 150s, scheduled for cardioversion tomorrow. INR 2.2. Patient currently wearing BiPAP ,has required on and off all day. Chest ultrasound reporting bilateral pleural effusions, larger on the right. Thoracentesis on hold, awaiting cardioversion.Chest x-ray reporting prominent interstitium and central vascularity, increased bibasilar density. Attempting diuresing with Lasix and Zaroxolyn. Review systems unable to obtain as patient currently on BiPAP. Active Medications Hydrocodone Bitart/Acetaminophen ([place] 5-325) 1 each PO Q4HR PRN PRN Reason: MILD TO MODERATE Pain Last Admin: 12/07/17 10:48 Dose: 1 each Hydrocodone Bitart/Acetaminophen ([place] 5-325) 2 each PO Q4HR PRN PRN Reason: MODERATE TO SEVERE Pain Last Admin: 12/07/17 16:39 Dose: 2 each Albuterol/Ipratropium (Duoneb 0.5 Mg-3 Mg/3 Ml Soln) 3 ml INHALATION RT-Q2H PRN PRN Reason: Shortness Of Breath Or Wheezing Last Admin: 12/01/17 18:09 Dose: 3 ml Albuterol/Ipratropium (Duoneb 0.5 Mg-3 Mg/3 Ml Soln) 3 ml INHALATION RT-QID [facility] Last Admin: 12/07/17 16:43 Dose: 3 ml Amiodarone HCl (Cordarone) 200 mg PO BID [facility] Aspirin (Aspirin) 81 mg PO DAILY [facility] Last Admin: 12/07/17 08:53 Dose: 81 mg Atorvastatin Calcium (Lipitor) 40 mg PO DAILY [facility] Last Admin: 12/07/17 08:53 Dose: 40 mg Benzocaine/Menthol (Cepacol Lozenge) 1 each MUCOUS MEM Q2H PRN PRN Reason: Sore Throat Bisacodyl (Dulcolax) 10 mg RECTAL DAILY PRN PRN Reason: Constipation Budesonide (Pulmicort) 1 mg INHALATION RT-BID [facility] Last Admin: 12/07/17 08:36 Dose: 1 mg Escitalopram Oxalate (Lexapro) 10 mg PO HS [facility] Furosemide (Lasix) 40 mg IV Q12HR [facility] Last Admin: 12/07/17 08:33 Dose: 40 mg Piperacillin/Tazobactam/ (Dextrose 3.375 gm/ IV Solution) 50 mls @ 12.5 mls/hr IVPB Q8HR [facility] Last Admin: 12/07/17 16:39 Dose: 12.5 mls/hr Sodium Chloride (Saline 0.9%) 1,000 mls @ 20 mls/hr IV .Q24H [facility] Last Admin: 12/07/17 13:00 Dose: 20 mls/hr Lactated Ringer's (Lactated Ringers) 1,000 mls @ 20 mls/hr IV .Q24H [facility] Last Admin: 12/06/17 20:45 Dose: 20 mls/hr Insulin Aspart (Novolog) 0 unit SQ ACHS [facility] PRN Reason: Protocol Last Admin: 12/07/17 13:01 Dose: 2 unit Magnesium Hydroxide (Milk Of Magnesia) 2,400 mg PO BID PRN PRN Reason: Constipation Methylprednisolone Sodium Succinate (Solu-Medrol) 30 mg IV Q8HR [facility] Last Admin: 12/07/17 16:39 Dose: 30 mg Metolazone (Zaroxolyn) 5 mg PO DAILY [facility] Last Admin: 12/07/17 08:53 Dose: 5 mg Metoprolol Tartrate (Lopressor) 50 mg PO BID [facility] Last Admin: 12/07/17 08:53 Dose: 50 mg Miscellaneous Information (Magnesium Per Protocol) 1 each MISCELLANE DAILY PRN ; Protocol PRN Reason: Per Protocol Miscellaneous Information (Phosphorus Per Protocol) 1 each MISCELLANE DAILY PRN ; Protocol PRN Reason: Per Protocol Miscellaneous Information (Potassium Per Protocol) 1 each MISCELLANE DAILY PRN ; Protocol PRN Reason: Per Protocol Ondansetron HCl (Zofran) 4 mg IVP Q6HR PRN PRN Reason: Nausea And Vomiting Pantoprazole Sodium (Protonix) 40 mg PO AC-BRKFST [facility] Last Admin: 12/07/17 08:53 Dose: 40 mg Senna/Docusate Sodium (Senokot-S) 2 each PO HS [facility] Last Admin: 12/06/17 20:29 Dose: 2 each Sodium Chloride (Saline Flush) 10 ml IV BID [facility] Last Admin: 12/07/17 10:48 Dose: 10 ml Objective - Vital Signs Vital signs: Vital Signs Temp 98.8 F 12/06/17 16:00 Pulse 102 H 12/06/17 17:00 Resp 25 H 12/06/17 17:00 BP 102/59 12/06/17 17:00 Pulse Ox 93 L 12/06/17 17:00 Intake & Output 12/06/17 12/06/17 12/07/17 06:59 18:59 06:59 Intake Total 700.0 87.5 Output Total 1050 2300 Balance -350 -2212.5 Weight 104.6 kg Intake: IV 100.0 87.5 Piperacillin-Tazobactam 3 100.0 87.5 .375 gm In Dextrose/Water 1 50ml.bag @ 12.5 mls/hr IVPB Q8HR [facility] Rx#: [id number] Oral 600 Output: Urine 1050 2300 Other: Voiding Method Bedpan Bedpan ABP, PAP, CO, CI - Last Documented Arterial Blood Pressure 110/60 Pulmonary Artery Pressure 38/33 Cardiac Output 5.8 Cardiac Index 2.9 - Exam PHYSICAL EXAM: VITAL SIGNS: As above GENERAL: Sitting up in bed, respiratory effort increased, wearing BiPAP HEENT: Conjunctivae normal. eyes normal. NECK: No JVD. No thyroid enlargement. No LNs CARDIOVASCULAR: S1, S2 muffled. No murmur RESPIRATION: Breath sounds diminished in the bases. Scattered rhonchi. Occasional fine scattered crackles. ABDOMEN: Soft, nontender . No guarding. no masses palpable.Bowel sounds heard. Extremities: Decreasing edema PSYCHIATRY:/NERVOUS SYSTEM: Alert and oriented 3, moves all 4 extremities no focal deficits, Skin: no ulcer no rash Microbiology 12/04/17 10:00 Urine,Voided Urine Culture - Final Escherichia coli Serratia marcescens 11/26/17 04:00 Sputum Gram Stain - Final 11/26/17 04:00 Sputum Sputum Culture - Final - Labs CBC & Chem 7: 12/07/17 04:00 12/07/17 04:00 Labs: Abnormal Lab Results - Last 24 Hours (Table) 12/05/17 12/06/17 12/06/17 Range/Units 20:11 05:45 05:45 WBC 22.6 H (3.8-10.6) k/uL RBC 3.47 L (3.80-5.40) m/uL Hgb 9.2 L (11.4-16.0) gm/dL Hct 31.6 L (34.0-46.0) % MCHC 29.2 L (31.0-37.0) g/dL RDW 17.4 H (11.5-15.5) % Neutrophils # 21.7 H (1.3-7.7) k/uL Lymphocytes # 0.3 L (1.0-4.8) k/uL PT 20.1 H (9.0-12.0) sec INR 2.2 H (<1.2) Carbon Dioxide (22-30) mmol/L BUN (7-17) mg/dL Glucose (74-99) mg/dL POC Glucose (mg/dL) 130 H (75-99) mg/dL AST (14-36) U/L Total Protein (6.3-8.2) g/dL Albumin (3.5-5.0) g/dL 12/06/17 12/06/17 12/06/17 Range/Units 05:45 12:16 17:16 WBC (3.8-10.6) k/uL RBC (3.80-5.40) m/uL Hgb (11.4-16.0) gm/dL Hct (34.0-46.0) % MCHC (31.0-37.0) g/dL RDW (11.5-15.5) % Neutrophils # (1.3-7.7) k/uL Lymphocytes # (1.0-4.8) k/uL PT (9.0-12.0) sec INR (<1.2) Carbon Dioxide 35 H (22-30) mmol/L BUN 49 H (7-17) mg/dL Glucose 108 H (74-99) mg/dL POC Glucose (mg/dL) 104 H 121 H (75-99) mg/dL AST 46 H (14-36) U/L Total Protein 5.4 L (6.3-8.2) g/dL Albumin 2.5 L (3.5-5.0) g/dL Microbiology - Last 24 Hours (Table) 12/04/17 10:00 Urine Culture - Final Urine,Voided Escherichia coli Serratia marcescens Assessment and Plan Assessment: 1. Status post CABG with mitral valve replacement 2. Acute blood loss anemia with massive blood transfusions postoperatively, in a patient with history of GI bleed 3. Hypertension 4. Left subclavian stenosis 5. Proximal atrial fibrillation 6. Postoperative Hypoxic respiratory failure, status post vent dependent, currently requiring intermittent use of BiPAP 7. Obesity, BMI 41.6 8. S/P PICC line placement 9. 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 Acute UTI Serratia marcescens, E. coli Plan: Continue on current medication regime , amiodarone, metoprolol, Coumadin , monitoring and symptomatic treatment. Maintain antibiotics of Zosyn, nebulized bronchodilators, IV steroids. As mentioned above scheduled for cardioversion in a.m. PT/OT Aggressive pulmonary toileting. GI and DVT prophylaxis in place. The impression and plan of care has been dictated as directed. : I performed a history and examination of this patient, discussed the same with the dictator. I agree with the dictator's note ,documented as a scribe. Any additional findings or plans will be noted.
--- NOTE | 2017-12-07 17:46 | P.PN ---
Subjective Progress Note Date: 12/07/17 Progress note being dictated for Dr. Lugo. Interval history: This is 67-year-old female status post CABG, mitral valve replacement, status post multiple blood products transfusions. Remains vent dependent on 40% FiO2/+5 of PEEP. Chest x-ray reporting fluid overload, improvement in volume status, aeration.Maintained on norepinephrine, Primacor, dopamine and insulin drip. Cardiac index 2.7. Telemetry atrial flutter/sinus tach. Tube feeding initiated via OG tube. Hemoglobin 7.3, Platelets decreased to 64 today, maintained on low-dose aspirin. Review systems unable to obtain as patient sedated and on mechanical ventilation. Active Medications Albuterol/Ipratropium (Duoneb 0.5 Mg-3 Mg/3 Ml Soln) 3 ml INHALATION RT-Q4H [facility] Last Admin: 11/29/17 15:17 Dose: 3 ml Albuterol/Ipratropium (Duoneb 0.5 Mg-3 Mg/3 Ml Soln) 3 ml INHALATION RT-Q2H PRN PRN Reason: Shortness Of Breath Or Wheezing Amiodarone HCl (Cordarone) 200 mg PO BID [facility] Aspirin (Aspirin) 81 mg PO DAILY [facility] Last Admin: 11/29/17 08:54 Dose: 81 mg Atorvastatin Calcium (Lipitor) 40 mg PO DAILY [facility] Last Admin: 11/29/17 08:54 Dose: 40 mg Benzocaine/Menthol (Cepacol Lozenge) 1 each MUCOUS MEM Q2H PRN PRN Reason: Sore Throat Bisacodyl (Dulcolax) 10 mg RECTAL DAILY PRN PRN Reason: Constipation Chlorhexidine Gluconate (Peridex) 15 ml MUCOUS MEM BID [facility] Last Admin: 11/29/17 08:48 Dose: 15 ml Furosemide (Lasix) 40 mg IV ONCE ONE Stop: 11/29/17 20:01 Propofol 1,000 mg/ IV Solution 100 mls @ 0 mls/hr IV .Q0M [facility]; Titrate PRN Reason: Protocol Last Admin: 11/29/17 17:54 Dose: 26.13 mcg/kg/min, 17.2 mls/hr Norepinephrine Bitartrate (Levophed-0.9% Nacl 16 Mg/250ml Pmx) 16 mg in 250 mls @ 0 mls/hr IV .Q0M [facility]; Titrate PRN Reason: Protocol Last Admin: 11/29/17 17:54 Dose: 2 mcg/min, 1.875 mls/hr Sodium Chloride (Saline 0.45%) 1,000 mls @ 30 mls/hr IV .Q24H [facility] Last Admin: 11/29/17 10:28 Dose: Not Given Milrinone Lactate/Dextrose 20 (mg/ IV Solution) 100 mls @ 6.58 mls/hr IV .[id number] [facility] PRN Reason: 0.2 MCG/KG/MIN Last Admin: 11/29/17 15:38 Dose: 0.2 mcg/kg/min, 6.58 mls/hr Insulin Aspart (Novolog) 0 unit SQ Q6HR [facility] PRN Reason: Protocol Last Admin: 11/29/17 12:36 Dose: Not Given Magnesium Hydroxide (Milk Of Magnesia) 2,400 mg PO BID PRN PRN Reason: Constipation Metoprolol Tartrate (Lopressor) 12.5 mg PO BID [facility] Last Admin: 11/29/17 08:55 Dose: 12.5 mg Miscellaneous Information (Magnesium Per Protocol) 1 each MISCELLANE DAILY PRN ; Protocol PRN Reason: Per Protocol Miscellaneous Information (Phosphorus Per Protocol) 1 each MISCELLANE DAILY PRN ; Protocol PRN Reason: Per Protocol Miscellaneous Information (Potassium Per Protocol) 1 each MISCELLANE DAILY PRN ; Protocol PRN Reason: Per Protocol Miscellaneous Information (Potassium Per Protocol) 1 each MISCELLANE DAILY PRN ; Protocol PRN Reason: Per Protocol Morphine Sulfate (Morphine Oral Dana 2mg/Ml) 6 mg PO Q2H PRN PRN Reason: Severe Pain Ondansetron HCl (Zofran) 4 mg IVP Q6HR PRN PRN Reason: Nausea And Vomiting Pantoprazole Sodium (Protonix) 40 mg IVP DAILY [facility] Last Admin: 11/29/17 08:55 Dose: 40 mg Senna/Docusate Sodium (Senokot-S) 2 each PO HS [facility] Last Admin: 11/28/17 20:41 Dose: 2 each Sodium Chloride (Saline Flush) 10 ml IV BID [facility] Last Admin: 11/29/17 08:56 Dose: 10 ml 11/30/2017 Chest x-ray reporting increased congestion, received additional Lasix. extubated this morning, currently maintained on BiPAP. Norepinephrine weaned off this morning. Maintained on Primacor, cardiac index 2.6. Received 1 dose of Lasix IV push. Renal function improving. Hemoglobin 7, platelets increased to 74. Atrial flutter per telemetry. Review systems unable to obtain as patient BiPAP dependent. Active Medications Generic Name Dose Route Start Last Admin Trade Name Freq PRN Reason Stop Dose Admin Albuterol/Ipratropium 3 ml 11/25/17 20:00 11/30/17 15:23 Duoneb 0.5 Mg-3 Mg/3 Ml Soln INHALATION 3 ml RT-Q4H [facility] Administration Albuterol/Ipratropium 3 ml 11/26/17 17:53 Duoneb 0.5 Mg-3 Mg/3 Ml Soln INHALATION RT-Q2H PRN Shortness Of Breath Or Wheezing Amiodarone HCl 200 mg 11/29/17 21:00 11/30/17 08:14 Cordarone PO 200 mg BID [facility] Administration Aspirin 81 mg 11/26/17 10:15 11/30/17 08:15 Aspirin PO 81 mg DAILY [facility] Administration Atorvastatin Calcium 40 mg 11/26/17 09:00 11/30/17 08:14 Lipitor PO 40 mg DAILY [facility] Administration Benzocaine/Menthol 1 each 11/25/17 19:03 Cepacol Lozenge MUCOUS MEM Q2H PRN Sore Throat Bisacodyl 10 mg 11/26/17 17:52 Dulcolax RECTAL DAILY PRN Constipation Fondaparinux 2.5 mg 11/30/17 11:30 11/30/17 13:23 Arixtra SQ 2.5 mg DAILY [facility] Administration Norepinephrine Bitartrate 16 mg in 250 mls @ 0 mls/hr 11/26/17 04:15 11:58 Levophed-0.9% Nacl 16 Mg/250ml Pmx IV 0 mcg/min .Q0M [facility] 0 mls/hr Protocol Titration Titrate Sodium Chloride 1,000 mls @ 10 mls/hr 11/26/17 10:15 11/30/17 12:51 Saline 0.45% IV Not Given .Q24H [facility] Milrinone Lactate/Dextrose 20 100 mls @ 6.58 mls/hr 11/29/17 15:00 11/30/17 08:16 mg/ IV Solution IV 0.2 mcg/kg/min .[id number] [facility] 6.58 mls/hr 0.2 MCG/KG/MIN Infusion Insulin Aspart 0 unit 11/29/17 12:00 11/30/17 12:50 Novolog SQ Not Given Q6HR [facility] Protocol Magnesium Hydroxide 2,400 mg 11/26/17 17:53 Milk Of Magnesia PO BID PRN Constipation Metoprolol Tartrate 12.5 mg 11/26/17 09:00 11/30/17 08:15 Lopressor PO 12.5 mg BID [facility] Administration Miscellaneous Information 1 each 11/25/17 19:03 Magnesium Per Protocol MISCELLANE DAILY PRN Per Protocol Protocol Miscellaneous Information 1 each 11/25/17 19:03 Phosphorus Per Protocol MISCELLANE DAILY PRN Per Protocol Protocol Miscellaneous Information 1 each 11/25/17 19:03 Potassium Per Protocol MISCELLANE DAILY PRN Per Protocol Protocol Miscellaneous Information 1 each 11/29/17 12:01 Potassium Per Protocol MISCELLANE DAILY PRN Per Protocol Protocol Morphine Sulfate 6 mg 11/29/17 13:31 Morphine Oral Dana 2mg/Ml PO Q2H PRN Severe Pain Ondansetron HCl 4 mg 11/25/17 19:03 Zofran IVP Q6HR PRN Nausea And Vomiting Pantoprazole Sodium 40 mg 11/26/17 09:00 11/30/17 08:15 Protonix IVP 40 mg DAILY [facility] Administration Senna/Docusate Sodium 2 each 11/26/17 21:00 11/29/17 20:40 Senokot-S PO 2 each HS [facility] Administration Sodium Chloride 10 ml 11/25/17 21:00 11/30/17 08:15 Saline Flush IV 10 ml BID [facility] Administration 12/01/2017 Breathing improving, weaned off of BiPAP and down to 6 L high flow. Wheezing resolved. Chest x-ray reports improvement. Staff reports patient appeared to be choking on pills last night, speech therapy consulted. Receiving one unit of packed RBCs for hemoglobin of 6.7. Mediastinal chest tubes discontinued, left pleural chest tube remains. Maintained on Primacor. Telemetry atrial flutter. Review of systems: CONSTITUTIONAL: No fever, no malaise HEENT: No recent visual problems or hearing problems. Denied any sore throat. CARDIOVASCULAR: No chest pain, no palpitations, no syncope. PULMONARY: Improving shortness of breath, no cough, no hemoptysis. GASTROINTESTINAL: No diarrhea, no nausea, no vomiting, no abdominal pain. Normoactive bowel sounds. NEUROLOGICAL: No headaches, diffuse weakness, no numbness. HEMATOLOGICAL: Denies any bleeding or petechiae. GENITOURINARY: Denies any burning micturition, frequency, or urgency. ENDOCRINE: Denies any polyuria or polydipsia. PSYCHIATRIC: No anxiety, no depression Active Medications Hydrocodone Bitart/Acetaminophen (Milroy 5-325) 1 each PO Q4HR PRN PRN Reason: MILD TO MODERATE Pain Last Admin: 12/01/17 22:44 Dose: 1 each Hydrocodone Bitart/Acetaminophen (Milroy 5-325) 2 each PO Q4HR PRN PRN Reason: MODERATE TO SEVERE Pain Albuterol/Ipratropium (Duoneb 0.5 Mg-3 Mg/3 Ml Soln) 3 ml INHALATION RT-Q4H [facility] Last Admin: 12/02/17 15:06 Dose: 3 ml Albuterol/Ipratropium (Duoneb 0.5 Mg-3 Mg/3 Ml Soln) 3 ml INHALATION RT-Q2H PRN PRN Reason: Shortness Of Breath Or Wheezing Last Admin: 12/01/17 18:09 Dose: 3 ml Amiodarone HCl (Cordarone) 200 mg PO BID [facility] Last Admin: 12/02/17 08:10 Dose: 200 mg Aspirin (Aspirin) 81 mg PO DAILY [facility] Last Admin: 12/02/17 08:10 Dose: 81 mg Atorvastatin Calcium (Lipitor) 40 mg PO DAILY [facility] Last Admin: 12/02/17 08:10 Dose: 40 mg Benzocaine/Menthol (Cepacol Lozenge) 1 each MUCOUS MEM Q2H PRN PRN Reason: Sore Throat Bisacodyl (Dulcolax) 10 mg RECTAL DAILY PRN PRN Reason: Constipation Budesonide (Pulmicort) 1 mg INHALATION RT-BID [facility] Last Admin: 12/02/17 07:19 Dose: 1 mg Fondaparinux (Arixtra) 2.5 mg SQ DAILY [facility] Last Admin: 12/02/17 08:10 Dose: 2.5 mg Formoterol Fumarate (Perforomist) 20 mcg INHALATION RT-BID [facility] Last Admin: 12/02/17 07:36 Dose: 20 mcg Norepinephrine Bitartrate (Levophed-0.9% Nacl 16 Mg/250ml Pmx) 16 mg in 250 mls @ 0 mls/hr IV .Q0M [facility]; Titrate PRN Reason: Protocol Last Titration: 11/30/17 11:58 Dose: 0 mcg/min, 0 mls/hr Sodium Chloride (Saline 0.45%) 1,000 mls @ 10 mls/hr IV .Q24H [facility] Last Admin: 12/01/17 14:04 Dose: 10 mls/hr Milrinone Lactate/Dextrose 20 (mg/ IV Solution) 100 mls @ 6.58 mls/hr IV .[id number] [facility] PRN Reason: 0.2 MCG/KG/MIN Last Admin: 12/02/17 08:57 Dose: 0.2 mcg/kg/min, 6.58 mls/hr Insulin Aspart (Novolog) 0 unit SQ Q6HR [facility] PRN Reason: Protocol Last Admin: 12/02/17 12:53 Dose: Not Given Magnesium Hydroxide (Milk Of Magnesia) 2,400 mg PO BID PRN PRN Reason: Constipation Methylprednisolone Sodium Succinate (Solu-Medrol) 30 mg IV Q8HR [facility] Last Admin: 12/02/17 08:10 Dose: 30 mg Metoprolol Tartrate (Lopressor) 25 mg PO BID [facility] Last Admin: 12/02/17 08:59 Dose: 25 mg Miscellaneous Information (Magnesium Per Protocol) 1 each MISCELLANE DAILY PRN ; Protocol PRN Reason: Per Protocol Miscellaneous Information (Phosphorus Per Protocol) 1 each MISCELLANE DAILY PRN ; Protocol PRN Reason: Per Protocol Miscellaneous Information (Potassium Per Protocol) 1 each MISCELLANE DAILY PRN ; Protocol PRN Reason: Per Protocol Miscellaneous Information (Potassium Per Protocol) 1 each MISCELLANE DAILY PRN ; Protocol PRN Reason: Per Protocol Ondansetron HCl (Zofran) 4 mg IVP Q6HR PRN PRN Reason: Nausea And Vomiting Pantoprazole Sodium (Protonix) 40 mg IVP DAILY [facility] Last Admin: 12/02/17 08:10 Dose: 40 mg Senna/Docusate Sodium (Senokot-S) 2 each PO HS [facility] Last Admin: 12/01/17 21:55 Dose: 2 each Sodium Chloride (Saline Flush) 10 ml IV BID [facility] Last Admin: 12/02/17 12:51 Dose: 10 ml 12/02/17 Much more alert today. Oxygen weaned further down to 5 L nasal cannula, maintaining O2 sats in the high 90s. Pleural chest tube discontinued. Chest x- ray reporting probable right lower lobe atelectasis/effusion. Underwent modified barium swallow, with recommendations of regular diet, thin liquids, chin tuck, no straw, small bites/sepsis/sips; no impairment with exception of mild transient penetration with thin liquids which patient independently cleared. Yesterday receive 1 unit of packed RBCs with current hemoglobin 8. Weaning of Primacor in progress. 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 Review of systems: CONSTITUTIONAL: No fever, no malaise, no fatigue. HEENT: No recent visual problems or hearing problems. Denied any sore throat. CARDIOVASCULAR: No chest pain, no palpitations, no syncope. PULMONARY: Minimal shortness of breath, no cough, no hemoptysis. GASTROINTESTINAL: No diarrhea, no nausea, no vomiting, no abdominal pain. Normoactive bowel sounds. NEUROLOGICAL: No headaches, no weakness, no numbness. HEMATOLOGICAL: Denies any bleeding or petechiae. GENITOURINARY: Denies any burning micturition, frequency, or urgency. MUSCULOSKELETAL/RHEUMATOLOGICAL: Denies any joint pain, swelling, or any muscle pain. ENDOCRINE: Denies any polyuria or polydipsia. PSYCHIATRIC: No anxiety, no depression The rest of the 14 point review of systems is negative Active Medications Generic Name Dose Route Start Last Admin Trade Name Freq PRN Reason Stop Dose Admin Hydrocodone Bitart/Acetaminophen 1 each 12/01/17 12:20 12/01/17 22:44 Milroy 5-325 PO 1 each Q4HR PRN Administration MILD TO MODERATE Pain Hydrocodone Bitart/Acetaminophen 2 each 12/01/17 12:20 Milroy 5-325 PO Q4HR PRN MODERATE TO SEVERE Pain Albuterol/Ipratropium 3 ml 11/25/17 20:00 12/02/17 15:06 Duoneb 0.5 Mg-3 Mg/3 Ml Soln INHALATION 3 ml RT-Q4H [facility] Administration Albuterol/Ipratropium 3 ml 11/26/17 17:53 12/01/17 18:09 Duoneb 0.5 Mg-3 Mg/3 Ml Soln INHALATION 3 ml RT-Q2H PRN Administration Shortness Of Breath Or Wheezing Amiodarone HCl 200 mg 11/29/17 21:00 12/02/17 08:10 Cordarone PO 200 mg BID [facility] Administration Aspirin 81 mg 11/26/17 10:15 12/02/17 08:10 Aspirin PO 81 mg DAILY [facility] Administration Atorvastatin Calcium 40 mg 11/26/17 09:00 12/02/17 08:10 Lipitor PO 40 mg DAILY [facility] Administration Benzocaine/Menthol 1 each 11/25/17 19:03 Cepacol Lozenge MUCOUS MEM Q2H PRN Sore Throat Bisacodyl 10 mg 11/26/17 17:52 Dulcolax RECTAL DAILY PRN Constipation Budesonide 1 mg 12/01/17 20:00 12/02/17 07:19 Pulmicort INHALATION 1 mg RT-BID [facility] Administration Fondaparinux 2.5 mg 11/30/17 11:30 12/02/17 08:10 Arixtra SQ 2.5 mg DAILY [facility] Administration Formoterol Fumarate 20 mcg 12/01/17 20:00 12/02/17 07:36 Perforomist INHALATION 20 mcg RT-BID [facility] Administration Norepinephrine Bitartrate 16 mg in 250 mls @ 0 mls/hr 11/26/17 04:15 11:58 Levophed-0.9% Nacl 16 Mg/250ml Pmx IV 0 mcg/min .Q0M [facility] 0 mls/hr Protocol Titration Titrate Sodium Chloride 1,000 mls @ 10 mls/hr 11/26/17 10:15 12/02/17 15:41 Saline 0.45% IV Not Given .Q24H [facility] Milrinone Lactate/Dextrose 20 100 mls @ 6.58 mls/hr 11/29/17 15:00 12/02/17 08:57 mg/ IV Solution IV 0.2 mcg/kg/min .[id number] [facility] 6.58 mls/hr 0.2 MCG/KG/MIN Administration Insulin Aspart 0 unit 11/29/17 12:00 12/02/17 12:53 Novolog SQ Not Given Q6HR [facility] Protocol Magnesium Hydroxide 2,400 mg 11/26/17 17:53 Milk Of Magnesia PO BID PRN Constipation Methylprednisolone Sodium Succinate 30 mg 12/01/17 16:00 12/02/17 08:10 Solu-Medrol IV 30 mg Q8HR [facility] Administration Metoprolol Tartrate 25 mg 12/02/17 09:00 12/02/17 08:59 Lopressor PO 25 mg BID [facility] Administration Miscellaneous Information 1 each 11/25/17 19:03 Magnesium Per Protocol MISCELLANE DAILY PRN Per Protocol Protocol Miscellaneous Information 1 each 11/25/17 19:03 Phosphorus Per Protocol MISCELLANE DAILY PRN Per Protocol Protocol Miscellaneous Information 1 each 11/25/17 19:03 Potassium Per Protocol MISCELLANE DAILY PRN Per Protocol Protocol Miscellaneous Information 1 each 11/29/17 12:01 Potassium Per Protocol MISCELLANE DAILY PRN Per Protocol Protocol Ondansetron HCl 4 mg 11/25/17 19:03 Zofran IVP Q6HR PRN Nausea And Vomiting Pantoprazole Sodium 40 mg 11/26/17 09:00 12/02/17 08:10 Protonix IVP 40 mg DAILY [facility] Administration Senna/Docusate Sodium 2 each 11/26/17 21:00 12/01/17 21:55 Senokot-S PO 2 each HS [facility] Administration Sodium Chloride 10 ml 11/25/17 21:00 12/02/17 12:51 Saline Flush IV 10 ml BID [facility] Administration 12/03/17 maintained on nebulized bronchodilators, steroids,patient tachypneic, requiring BiPap throughout today off and on. Chest x-ray suggestive of fluid overload. Received additional Lasix. Maintained on oral amiodarone, remains in a-flutter. Overdrive atrial pacing attempted unsuccessfully. Digoxin 2 ordered. Pacer wires discontinued today. Stool at bedside with PT OT, remains extremely weak. Primacor weaned off yesterday. 2017 currently in atrial fibrillation with heart rates up into the 150s, scheduled for cardioversion tomorrow. INR 2.2. Patient currently wearing BiPAP ,has required on and off all day. Chest ultrasound reporting bilateral pleural effusions, larger on the right. Thoracentesis on hold, awaiting cardioversion.Chest x-ray reporting prominent interstitium and central vascularity, increased bibasilar density. Attempting diuresing with Lasix and Zaroxolyn. Review systems unable to obtain as patient currently on BiPAP. Active Medications Hydrocodone Bitart/Acetaminophen (Milroy 5-325) 1 each PO Q4HR PRN PRN Reason: MILD TO MODERATE Pain Last Admin: 12/07/17 10:48 Dose: 1 each Hydrocodone Bitart/Acetaminophen (Milroy 5-325) 2 each PO Q4HR PRN PRN Reason: MODERATE TO SEVERE Pain Last Admin: 12/07/17 16:39 Dose: 2 each Albuterol/Ipratropium (Duoneb 0.5 Mg-3 Mg/3 Ml Soln) 3 ml INHALATION RT-Q2H PRN PRN Reason: Shortness Of Breath Or Wheezing Last Admin: 12/01/17 18:09 Dose: 3 ml Albuterol/Ipratropium (Duoneb 0.5 Mg-3 Mg/3 Ml Soln) 3 ml INHALATION RT-QID [facility] Last Admin: 12/07/17 16:43 Dose: 3 ml Amiodarone HCl (Cordarone) 200 mg PO BID [facility] Aspirin (Aspirin) 81 mg PO DAILY [facility] Last Admin: 12/07/17 08:53 Dose: 81 mg Atorvastatin Calcium (Lipitor) 40 mg PO DAILY [facility] Last Admin: 12/07/17 08:53 Dose: 40 mg Benzocaine/Menthol (Cepacol Lozenge) 1 each MUCOUS MEM Q2H PRN PRN Reason: Sore Throat Bisacodyl (Dulcolax) 10 mg RECTAL DAILY PRN PRN Reason: Constipation Budesonide (Pulmicort) 1 mg INHALATION RT-BID [facility] Last Admin: 12/07/17 08:36 Dose: 1 mg Escitalopram Oxalate (Lexapro) 10 mg PO HS [facility] Furosemide (Lasix) 40 mg IV Q12HR [facility] Last Admin: 12/07/17 08:33 Dose: 40 mg Piperacillin/Tazobactam/ (Dextrose 3.375 gm/ IV Solution) 50 mls @ 12.5 mls/hr IVPB Q8HR [facility] Last Admin: 12/07/17 16:39 Dose: 12.5 mls/hr Sodium Chloride (Saline 0.9%) 1,000 mls @ 20 mls/hr IV .Q24H [facility] Last Admin: 12/07/17 13:00 Dose: 20 mls/hr Lactated Ringer's (Lactated Ringers) 1,000 mls @ 20 mls/hr IV .Q24H [facility] Last Admin: 12/06/17 20:45 Dose: 20 mls/hr Insulin Aspart (Novolog) 0 unit SQ ACHS [facility] PRN Reason: Protocol Last Admin: 12/07/17 13:01 Dose: 2 unit Magnesium Hydroxide (Milk Of Magnesia) 2,400 mg PO BID PRN PRN Reason: Constipation Methylprednisolone Sodium Succinate (Solu-Medrol) 30 mg IV Q8HR [facility] Last Admin: 12/07/17 16:39 Dose: 30 mg Metolazone (Zaroxolyn) 5 mg PO DAILY [facility] Last Admin: 12/07/17 08:53 Dose: 5 mg Metoprolol Tartrate (Lopressor) 50 mg PO BID [facility] Last Admin: 12/07/17 08:53 Dose: 50 mg Miscellaneous Information (Magnesium Per Protocol) 1 each MISCELLANE DAILY PRN ; Protocol PRN Reason: Per Protocol Miscellaneous Information (Phosphorus Per Protocol) 1 each MISCELLANE DAILY PRN ; Protocol PRN Reason: Per Protocol Miscellaneous Information (Potassium Per Protocol) 1 each MISCELLANE DAILY PRN ; Protocol PRN Reason: Per Protocol Ondansetron HCl (Zofran) 4 mg IVP Q6HR PRN PRN Reason: Nausea And Vomiting Pantoprazole Sodium (Protonix) 40 mg PO AC-BRKFST [facility] Last Admin: 12/07/17 08:53 Dose: 40 mg Senna/Docusate Sodium (Senokot-S) 2 each PO HS [facility] Last Admin: 12/06/17 20:29 Dose: 2 each Sodium Chloride (Saline Flush) 10 ml IV BID [facility] Last Admin: 12/07/17 10:48 Dose: 10 ml 12/07/2017 Underwent successful cardioversion this morning,360J X1, remains in sinus rhythm. Currently wearing BiPAP. Nonproductive cough. Diuresing well on Lasix and Zaroxolyn with 24-hour I&O reflecting a negative fluid balance. Chest x-ray reporting stable bilateral areas of infiltrate and pleural effusions , possible CHF, possible pneumonia. INR 3.8, afebrile, WBC 17. Maintained on Zosyn. Sternal wound drainage, cultures sent. Objective - Vital Signs Vital signs: Vital Signs Temp 98.2 F 12/07/17 08:00 Pulse 85 03/06/18 16:52 Resp 14 12/07/17 08:00 BP 107/63 12/07/17 08:00 Pulse Ox 98 12/07/17 08:00 Intake & Output 12/06/17 12/07/17 12/07/17 18:59 06:59 18:59 Intake Total 87.5 502.5 227.5 Output Total 2300 1025 1300 Balance -2212.5 -522.5 -1072.5 Weight 103 kg 103 kg Intake: IV 87.5 262.5 227.5 Lactated Ringers 1,000 ml 150 40 @ 20 mls/hr IV .Q24H [facility] Rx#:[id number] Piperacillin-Tazobactam 3 87.5 62.5 37.5 .375 gm In Dextrose/Water 1 50ml.bag @ 12.5 mls/hr IVPB Q8HR [facility] Rx#: [id number] Potassium Chloride 10 meq 50 150 In Sodium Chloride 0.9% 100 ml @ 100 mls/hr IV Q1H [facility] Rx#:[id number] Oral 240 Output: Urine 2300 1025 1300 Other: Voiding Method Bedpan Bedpan ABP, PAP, CO, CI - Last Documented Arterial Blood Pressure 110/60 Pulmonary Artery Pressure 38/33 Cardiac Output 5.8 Cardiac Index 2.9 - Exam PHYSICAL EXAM: VITAL SIGNS: As above GENERAL: Sitting up in bed, respiratory effort increased, wearing BiPAP HEENT: Conjunctivae normal. eyes normal. NECK: No JVD. No thyroid enlargement. No LNs CARDIOVASCULAR: S1, S2 muffled. No murmur RESPIRATION: Breath sounds diminished in the bases. Scattered rhonchi. ABDOMEN: Soft, nontender . No guarding. no masses palpable.Bowel sounds heard. Extremities: Decreasing edema PSYCHIATRY:/NERVOUS SYSTEM: Alert and oriented 3, moves all 4 extremities no focal deficits, Skin: no ulcer no rash Microbiology 12/04/17 10:00 Urine,Voided Urine Culture - Final Escherichia coli Serratia marcescens 11/26/17 04:00 Sputum Gram Stain - Final 11/26/17 04:00 Sputum Sputum Culture - Final - Labs CBC & Chem 7: 12/07/17 04:00 12/07/17 04:00 Labs: Abnormal Lab Results - Last 24 Hours (Table) 12/06/17 12/07/17 12/07/17 Range/Units 20:26 04:00 04:00 WBC (3.8-10.6) k/uL RBC (3.80-5.40) m/uL Hgb (11.4-16.0) gm/dL Hct (34.0-46.0) % RDW (11.5-15.5) % Neutrophils # (1.3-7.7) k/uL Lymphocytes # (1.0-4.8) k/uL PT 33.7 H (9.0-12.0) sec INR 3.8 H (<1.2) Chloride 95 L (98-107) mmol/L Carbon Dioxide 40 H* (22-30) mmol/L BUN 54 H (7-17) mg/dL Glucose 107 H (74-99) mg/dL POC Glucose (mg/dL) 129 H (75-99) mg/dL AST 49 H (14-36) U/L Total Protein 5.4 L (6.3-8.2) g/dL Albumin 2.5 L (3.5-5.0) g/dL 12/07/17 12/07/17 12/07/17 Range/Units 04:00 07:13 12:07 WBC 17.0 H (3.8-10.6) k/uL RBC 3.45 L (3.80-5.40) m/uL Hgb 9.4 L (11.4-16.0) gm/dL Hct 29.8 L (34.0-46.0) % RDW 17.4 H (11.5-15.5) % Neutrophils # 16.1 H (1.3-7.7) k/uL Lymphocytes # 0.3 L (1.0-4.8) k/uL PT (9.0-12.0) sec INR (<1.2) Chloride (98-107) mmol/L Carbon Dioxide (22-30) mmol/L BUN (7-17) mg/dL Glucose (74-99) mg/dL POC Glucose (mg/dL) 108 H 152 H (75-99) mg/dL AST (14-36) U/L Total Protein (6.3-8.2) g/dL Albumin (3.5-5.0) g/dL 12/07/17 Range/Units 17:10 WBC (3.8-10.6) k/uL RBC (3.80-5.40) m/uL Hgb (11.4-16.0) gm/dL Hct (34.0-46.0) % RDW (11.5-15.5) % Neutrophils # (1.3-7.7) k/uL Lymphocytes # (1.0-4.8) k/uL PT (9.0-12.0) sec INR (<1.2) Chloride (98-107) mmol/L Carbon Dioxide (22-30) mmol/L BUN (7-17) mg/dL Glucose (74-99) mg/dL POC Glucose (mg/dL) 133 H (75-99) mg/dL AST (14-36) U/L Total Protein (6.3-8.2) g/dL Albumin (3.5-5.0) g/dL Microbiology - Last 24 Hours (Table) 12/04/17 10:00 Urine Culture - Final Urine,Voided Escherichia coli Serratia marcescens Assessment and Plan Assessment: 1. Status post CABG with mitral valve replacement 2. Acute blood loss anemia with massive blood transfusions postoperatively, in a patient with history of GI bleed 3. Hypertension 4. Left subclavian stenosis 5. Proximal atrial fibrillation 6. Postoperative Hypoxic respiratory failure, status post vent dependent, currently requiring intermittent use of BiPAP 7. Obesity, BMI 41.6 8. S/P PICC line placement 9. 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 Acute UTI Serratia marcescens, E. coli 11. Bilateral pleural effusions, improving with diuretics. Possible aspiration pneumonia, possible fluid overload. Plan: Continue on current medication regime , amiodarone, metoprolol, Coumadin , monitoring and symptomatic treatment. Strict aspiration precautions. Maintain antibiotics of Zosyn for both acute UTI and possible aspiration pneumonia, nebulized bronchodilators, IV steroids. Sternal wound cultures pending. GI and DVT prophylaxis in place. The impression and plan of care has been dictated as directed. : I performed a history and examination of this patient, discussed the same with the dictator. I agree with the dictator's note ,documented as a scribe. Any additional findings or plans will be noted.
[2017-12-07 20:09] LABS: Glucose,Whole Blood 123 mg/dL (75-99)
[2017-12-07] MEDS: LACTATED RINGERS 1,000 ML IV SCH (20:09)
[2017-12-07] MEDS: ESCITALOPRAM 10 MG TAB PO SCH (20:10)
[2017-12-07] MEDS: SENNOSIDES-DOCUSATE SODIUM 1 EACH TAB PO SCH (20:16)
[2017-12-07 20:57] LABS: ABG HCO3 38 mmol/L (21-25); ABG Oxygen Saturation 94.3 % (94-97); ABG PCO2 50 mmHg (35-45); ABG PO2 70 mmHg (83-108); ABG TCO2 40 mmol/L (19-24)
--- NOTE | 2017-12-07 21:22 | XR ---
EXAMINATION: XR chest 1V portable CLINICAL INDICATION: decrease spO2 TECHNIQUE: AP portable upright December 07, 2017 at 8:58 PM COMPARISON: 12/07/2017 at 6:23 AM DESCRIPTION: EKG leads and sternal sutures, cardiac valve prosthesis and left subclavian stent noted. Left upper extremity PICC line tip superimposes over the SVC. There is marked enlargement of the cardiac silhouette, stable appearance. There is no evident pneumothorax. There is complete silhouetting of the left hemidiaphragm, consistent with left lower lobe and lingula r atelectasis. There is also partial silhouetting of the right hemidiaphragm, consistent with partial right lower lobe atelectasis. Concurrent lung base bronchopneumonia can be clinically excluded. The pulmonary vasculature is prominently obscured diffusely by a fine reticular pattern of increased density, consistent with interstitial phase pulmonary edema, presumably cardiogenic. IMPRESSION: MILD/MODERATE INTERVAL WORSENING IN THE LUNG INFLATION PATTERN WHEN COMPARED TO THE PRIOR STUDY.
[2017-12-08 05:08] LABS: Anisocytosis Slight; Basophils % (A) 0 %; Eosinophils % (A) 0 %; HGB 9.3 gm/dL (11.4-16.0); Hypochromasia Marked; Lymphocytes # (A) 0.3 k/uL (1.0-4.8); Lymphocytes % (A) 2 %; MCH 26.2 pg (25.0-35.0); MCHC 29.9 g/dL (31.0-37.0); MCV 87.7 fL (80.0-100.0); Monocytes # (A) 0.6 k/uL (0-1.0); Monocytes % (A) 3 %; Neutrophils # (A) 15.4 k/uL (1.3-7.7); Neutrophils % (A) 94 %; Platelet Count 349 k/uL (150-450); Poikilocytosis Slight; RBC 3.54 m/uL (3.80-5.40); RDW 17.7 % (11.5-15.5); WBC 16.4 k/uL (3.8-10.6)
[2017-12-08] MEDS: IPRATROPIUM-ALBUTEROL 3 ML NEB INHALATION PRN (05:16)
[2017-12-08 05:29] LABS: Albumin 2.6 g/dL (3.5-5.0); Calcium 8.8 mg/dL (8.4-10.2); Magnesium 2.2 mg/dL (1.6-2.3); Phosphorus 4.5 mg/dL (2.5-4.5); Potassium 4.3 mmol/L (3.5-5.1); Total Bilirubin 1.1 mg/dL (0.2-1.3); Total Protein 5.9 g/dL (6.3-8.2)
[2017-12-08 05:33] LABS: INR 4.8 (<1.2); Prothrombin Time 43.3 sec (9.0-12.0)
[2017-12-08] MEDS ORDERED: PHYTONADIONE 2 MG in SODIUM CHLORIDE 0.9% 50 ML IVPB STA (06:04)
[2017-12-08] MEDS: HYDROcodone/APAP 5-325MG 1 EACH TAB PO PRN ×3 (06:26→18:41)
[2017-12-08 07:10] LABS: Glucose,Whole Blood 107 mg/dL (75-99)
--- NOTE | 2017-12-08 08:14 | XR ---
EXAMINATION TYPE: XR chest 1V portable DATE OF EXAM: 12/08/2017 COMPARISON: Prior chest x-ray 12/07/2017 HISTORY: Post cardiac surgery, abnormal chest x-ray TECHNIQUE: Single frontal view of the chest is obtained. FINDINGS: Patient is post median sternotomy, heart remains markedly enlarged. Cardiac valve replacem ent, atrial appendage clipping, subclavian stent, left-sided PICC line are all again noted. No eviden t pneumothorax. Bibasilar density persists. Central vascularity is prominent, lungs show a similar ap pearance, suspect some airspace disease is present. There is blunting of the left costophrenic angle. Patient is rotated. IMPRESSION: Probable left lower lobe atelectasis versus edema or pneumonia and associated effusion. Correlate for congestive heart failure.
[2017-12-08] MEDS: methylPREDNISolone SOD SUCCI 40 MG/ML 1 ML VIAL IV SCH (08:24)
[2017-12-08] MEDS: ASPIRIN 81 MG PO SCH (08:24)
[2017-12-08] MEDS: METOPROLOL TARTRATE 50 MG TAB PO SCH ×2 (08:24→20:33)
[2017-12-08] MEDS: AMIODARONE 200 MG TAB PO SCH ×2 (08:24→20:33)
[2017-12-08] MEDS: PIPERACILLIN-TAZOBACTAM 3.375 GM in DEXTROSE/WATER 1 50ML.BAG IVPB SCH ×2 (08:25→16:11)
[2017-12-08] MEDS: INSULIN ASPART 100 UNIT/ML 1 ML 10 ML VIAL SQ SCH ×4 (08:25→21:10)
[2017-12-08] MEDS: ATORVASTATIN 40 MG TAB PO SCH (08:25)
[2017-12-08] MEDS: PANTOPRAZOLE 40 MG TABLET PO SCH (08:25)
--- NOTE | 2017-12-08 08:43 | P.PN ---
Subjective Progress Note Date: 12/08/17 Principal diagnosis: Severe mitral regurgitation. Coronary artery disease. Paroxysmal atrial fibrillation on Coumadin for anticoagulation. Recent hospitalization for lower GI bleed, duodenal ulcer. History of left subclavian stenosis with stent placement 2014 with recent discovery of critical re-in-stent stenosis. Previous tobacco dependence with preoperative FEV1 60% of predicted. Hypertension. Hyperlipidemia. Gallbladder disease. Family history of heart disease. Preoperative nasal swab positive for MRSA. Preoperative anemia. POD #13 mitral valve replacement using a 25 mm Ribera bioprosthetic tissue valve. Coronary artery bypass grafting 1, reverse saphenous vein graft to the obtuse marginal artery. Maze procedure. Endoscopic harvesting of the right greater saphenous vein. Epi-aortic ultrasound. Intraoperative transesophageal echocardiogram. Ligation of the left atrial appendage using a 40 mm AtriClip. Intraoperative left ventricular wall tear, an unexpected but potential outcome of surgery Acute blood loss anemia, and expected outcome given patient's preoperative anemia and intraoperative bleeding. Postoperative prolonged mechanical ventilation secondary to hemodynamic instability, and unexpected but potential outcome of surgery given the extensive nature of her perioperative course The patient's currently sitting up in bed in no acute distress although she does become dyspneic with any activity and does take quite some time to recover. She did have episodes of hypoxia last night requiring increase in her FiO2 on BiPAP. She was cardioverted yesterday and remains in normal sinus rhythm. Her INR was 4.8 this morning and she was given vitamin K per pulmonology. Her sternal incision has started to open, culture was sent yesterday and wound was packed. Objective - Vital Signs Vital signs: Vital Signs Temp 98.0 F 12/08/17 04:00 Pulse 77 12/08/17 07:00 Resp 13 12/08/17 07:00 BP 124/65 12/08/17 07:00 Pulse Ox 99 12/08/17 07:00 Intake & Output 12/07/17 12/08/17 12/08/17 18:59 06:59 18:59 Intake Total 305.0 422.5 50 Output Total 2950 1275 0 Balance -2645.0 -852.5 50 Weight 103 kg 99.1 kg Intake: IV 305.0 62.5 50 Lactated Ringers 1,000 ml 80 @ 20 mls/hr IV .[facility]H [facility] Rx#:[id number] Phytonadione 2 mg In 50 Sodium Chloride 0.9% 50 ml @ 100 mls/hr IVPB ONCE STA Rx#:[id number] Piperacillin-Tazobactam 3 75.0 62.5 .375 gm In Dextrose/Water 1 50ml.bag @ 12.5 mls/hr IVPB Q8HR [facility] Rx#: [id number] Potassium Chloride 10 meq 150 In Sodium Chloride 0.9% 100 ml @ 100 mls/hr IV Q1H [facility] Rx#:[id number] Oral 360 Output: Urine 2950 1275 0 Other: Voiding Method Bedpan Bedpan ABP, PAP, CO, CI - Last Documented Arterial Blood Pressure 110/60 Pulmonary Artery Pressure 38/33 Cardiac Output 5.8 Cardiac Index 2.9 - Constitutional General appearance: Present: cooperative, no acute distress, obese - Respiratory Details: Lungs sounds diminished bilaterally with coarse breath sounds on the left side. Respirations even, nonlabored on BiPAP, FiO2 65%, 14/5. - Cardiovascular Details: S1, S2 present. Regular rate and rhythm, sinus rhythm on telemetry. 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 Palpable peripheral pulses bilaterally. Bilateral lower extremity edema still present. No calf pain or tenderness noted. Antiembolism stockings, SCDs present. Left brachial PICC line present. - Gastrointestinal Gastrointestinal Comment(s): Abdomen soft, nontender, nondistended. Active bowel sounds 4 quadrants. Tolerating diet. - Genitourinary Genitourinary Comment(s): Continues to void clear, yellow urine, approximately 150-300 mL at a time. She is -3 L over the last 24 hours and her weight is down 4 kg from yesterday. - Integumentary Integumentary Comment(s): Skin is warm and dry. Her sternal incision has started to open, it is draining copious amounts of red fluid. - Neurologic Neurologic: Present: CNII-XII intact - Musculoskeletal Musculoskeletal: Present: generalized weakness - Psychiatric Psychiatric: Present: A&O x's 3, appropriate affect, intact judgment & insight - Allied health notes Allied health notes reviewed: nursing - Labs CBC & Chem 7: 12/08/17 04:50 12/08/17 04:50 Labs: Abnormal Lab Results - Last 24 Hours (Table) 12/07/17 12/07/17 12/07/17 Range/Units 12:07 17:10 20:06 WBC (3.8-10.6) k/uL RBC (3.80-5.40) m/uL Hgb (11.4-16.0) gm/dL Hct (34.0-46.0) % MCHC (31.0-37.0) g/dL RDW (11.5-15.5) % Neutrophils # (1.3-7.7) k/uL Lymphocytes # (1.0-4.8) k/uL PT (9.0-12.0) sec INR (<1.2) ABG pH (7.35-7.45) ABG pCO2 (35-45) mmHg ABG pO2 (83-108) mmHg ABG HCO3 (21-25) mmol/L ABG Total CO2 (19-24) mmol/L Chloride (98-107) mmol/L Carbon Dioxide (22-30) mmol/L BUN (7-17) mg/dL Glucose (74-99) mg/dL POC Glucose (mg/dL) 152 H 133 H 123 H (75-99) mg/dL AST (14-36) U/L Total Protein (6.3-8.2) g/dL Albumin (3.5-5.0) g/dL 12/07/1718 12/08/17 Range/Units 20:56 04:50 04:50 WBC 16.4 H (3.8-10.6) k/uL RBC 3.54 L (3.80-5.40) m/uL Hgb 9.3 L (11.4-16.0) gm/dL Hct 31.0 L (34.0-46.0) % MCHC 29.9 L (31.0-37.0) g/dL RDW 17.7 H (11.5-15.5) % Neutrophils # 15.4 H (1.3-7.7) k/uL Lymphocytes # 0.3 L (1.0-4.8) k/uL PT (9.0-12.0) sec INR (<1.2) ABG pH 7.50 H (7.35-7.45) ABG pCO2 50 H (35-45) mmHg ABG pO2 70 L (83-108) mmHg ABG HCO3 38 H (21-25) mmol/L ABG Total CO2 40 H (19-24) mmol/L Chloride 93 L (98-107) mmol/L Carbon Dioxide 41 H* (22-30) mmol/L BUN 59 H (7-17) mg/dL Glucose 110 H (74-99) mg/dL POC Glucose (mg/dL) (75-99) mg/dL AST 59 H (14-36) U/L Total Protein 5.9 L (6.3-8.2) g/dL Albumin 2.6 L (3.5-5.0) g/dL 12/08/17 12/08/17 Range/Units 04:50 07:08 WBC (3.8-10.6) k/uL RBC (3.80-5.40) m/uL Hgb (11.4-16.0) gm/dL Hct (34.0-46.0) % MCHC (31.0-37.0) g/dL RDW (11.5-15.5) % Neutrophils # (1.3-7.7) k/uL Lymphocytes # (1.0-4.8) k/uL PT 43.3 H (9.0-12.0) sec INR 4.8 H (<1.2) ABG pH (7.35-7.45) ABG pCO2 (35-45) mmHg ABG pO2 (83-108) mmHg ABG HCO3 (21-25) mmol/L ABG Total CO2 (19-24) mmol/L Chloride (98-107) mmol/L Carbon Dioxide (22-30) mmol/L BUN (7-17) mg/dL Glucose (74-99) mg/dL POC Glucose (mg/dL) 107 H (75-99) mg/dL AST (14-36) U/L Total Protein (6.3-8.2) g/dL Albumin (3.5-5.0) g/dL Microbiology - Last 24 Hours (Table) 12/07/17 15:40 Wound Culture - Preliminary Chest - Imaging and Cardiology Chest x-ray: report reviewed, image reviewed Assessment and Plan (1) Acute blood loss anemia Current Visit: Yes Status: Acute Code(s): D62 - ACUTE POSTHEMORRHAGIC ANEMIA SNOMED Code(s): 388759221 (2) CAD (coronary artery disease) Current Visit: Yes Status: Chronic Code(s): I25.10 - ATHSCL HEART DISEASE OF [place] CORONARY ARTERY W/O ANG PCTRS SNOMED Code(s): 74492122 (3) Hyperlipidemia Current Visit: Yes Status: Chronic Code(s): E78.5 - HYPERLIPIDEMIA, UNSPECIFIED SNOMED Code(s): 62347454 (4) Hypertension Current Visit: Yes Status: Chronic Code(s): I10 - ESSENTIAL (PRIMARY) HYPERTENSION SNOMED Code(s): 41593650 (5) Severe mitral regurgitation Current Visit: Yes Status: Chronic Code(s): I34.0 - NONRHEUMATIC MITRAL ( VALVE) INSUFFICIENCY SNOMED Code(s): 21871216 (6) Stenosis of left subclavian artery Current Visit: Yes Status: Chronic Code(s): I77.1 - STRICTURE OF ARTERY SNOMED Code(s): 412936155 (7) Paroxysmal atrial fibrillation Current Visit: No Status: Resolved Code(s): I48.0 - PAROXYSMAL ATRIAL FIBRILLATION SNOMED Code(s): 464362940 (8) History of GI bleed Current Visit: No Status: Resolved Code(s): Z87.19 - PERSONAL HISTORY OF OTHER DISEASES OF THE DIGESTIVE SYSTEM SNOMED Code(s): 217877116 (9) Family history of coronary artery disease Current Visit: Yes Status: Chronic Code(s): Z82.49 - FAMILY HX OF I[place]HE[place] HEART DIS AND OTH DIS OF THE CIRC SYS SNOMED Code(s): 202412706 Plan: 1. Continue baby aspirin, statin, beta krunal. Will increase beta krunal therapy as tolerated. 2. Continue amiodarone for history of paroxysmal atrial fibrillation on home amiodarone. Patient was cardioverted to normal sinus rhythm yesterday. 3. Wean O2 as tolerated. BiPAP management per pulmonology. Encourage incentive spirometry use 10x every hour. 4. Urine culture positive for E. coli and Serratia, both of which are sensitive to Zosyn. Patient has remained afebrile. Continue Zosyn. 5. Sternal incision cultured, await results. We will repack and redress 2-3 times daily. 6. Will monitor labs, chest x-rays. 7. Bronchodilators, steroids per pulmonology. 8. Daily Coumadin dosing per PT and INR. Cardiothoracic surgery will manage dosing while she is inpatient, outpatient management to be done by cardiology. 9. GI/DVT prophylaxis. 10. Increase activity as tolerated. PT/OT/cardiac rehab following. 11. Keep patient in the ICU for another day for close monitoring. 12. More recommendations as patient progresses. Time with Patient: Greater than 30
[2017-12-08] MEDS ORDERED: FUROSEMIDE 10 MG/ML 4 ML VIAL IV SCH (09:00)
[2017-12-08] MEDS: IPRATROPIUM-ALBUTEROL 3 ML NEB INHALATION SCH ×4 (09:25→19:23)
[2017-12-08] MEDS: BUDESONIDE 1 MG/2 ML NEBU INHALATION SCH ×2 (09:26→19:23)
--- NOTE | 2017-12-08 09:56 | P.PN ---
Subjective Progress Note Date: 12/08/17 Principal diagnosis: Severe mitral regurgitation, coronary artery disease, status post mitral valve replacement, bypass grafting 1, modified maze procedure and ligation of left atrial appendage Status post 1 vessel bypass grafting and mitral valve replacement. Progress note dated 11/29/2017 This is a 67-year-old female status post one-vessel bypass grafting and mitral valve replacement. She apparently had surgery on the . Today is postop day #3. The patient currently remains on the mechanical ventilator. Her vent settings are the assist control mode rate of 1210 of I am is 550 FiO2 50% PEEP of 5. Arterial blood gases show a PaO2 of 135 a PaCO2 of 36 and a pH of 7.47. I'm to make a few changes including bumping the rate up from 12 to 20, and decreasing the tidal volume from 550 down to 400, and dropping the FiO2 from 50- 40%. The patient may not be weaned of old low because she remains on insulin drip at 1 unit per hour, Primacor 0.2 mics per kilogram per minute, norepinephrine at 2 mics per minute, half normal saline at 30 mL an hour and propofol at 25 g kilogram per minute. Chest x-rays consistent with fluid overload but bibasilar infiltrates and small effusions and microbiology is negative. The rest of the labs medications and x-rays are all reviewed. Progress note dated 11/30/2017 This is a 67-year-old female status post one-vessel bypass grafting and mitral valve replacement. She had surgery on the . She is postop day #4. She remains on mechanical ventilator. Yesterday, her chest x-ray showed evidence of fluid overload. She did get some diuretics. Today's chest x-ray still shows evidence of fluid overload although it might be slightly improved. She's currently still on the mechanical ventilator on the assist control mode, rate of 26, tidal volume 400, PEEP of 8, FiO2 40%. The patient's arterial blood gases show a PaO2 of 94 and pH 7.46 in a PaCO2 of 41. The patient will get a daily eruption of sedation and a spontaneous breathing trial. The patient remains on norepinephrine at 3 mcg/m, propofol at 30 mics per kilogram per minute, Primacor 0.2 mics per kilogram per minute, half normal saline IV at 15 mL an hour and vital 1.2 at 60 with a goal of 60 mL an hour. The patient failed her spontaneous breathing trial yesterday very quickly, and afterwards, she became dyssynchronous with the ventilator and I had to bump up the PEEP level to 8 and increase her respiratory rate to 26. We also dropped the tidal volume down to 400. She is much more in synchrony today. Progress note dated 12/01/2017 This is a 67-year-old female who is postop day #5, status post one-vessel bypass grafting and mitral valve replacement. She also has a history of postoperative respiratory failure with failure to wean. She was extubated yesterday though. Chest x-ray has evidence of fluid overload which actually is improved. In addition, the patient had acute blood loss anemia requiring blood transfusion postsurgically, hypertension severe mitral regurgitation left subclavian stenosis paroxysmal atrial fibrillation GI bleed and obesity. Yesterday, post extubation we gave the patient 1 shot of Solu-Medrol 60 mg IV push and also put her on BiPAP at 14/5 and 40%. Chest x-ray does show improvement. Today her hemoglobin is below 7 and she'll receive 1 unit of blood followed by some Lasix IV. In addition, I may add on some IV site Medrol and a smaller dose than normal and also some Pulmicort 1 mg twice a day. Progress note dated 12/02/2017 67-year-old female who is postop day #6 status post single-vessel bypass grafting and mitral valve replacement. The patient has been doing very well the last day and a half to 2 days. She has a history of postoperative respiratory failure and initially, failure to wean. She was extubated 2 days ago. She has had to use of BiPAP on and off since that time. She did receive 1 unit of PRBCs yesterday followed by some Lasix 40 mg IV push. Her chest x- ray my opinion still so-so some fluid overload with a small pool of pleural effusion. Other than that, the patient seemed be doing relatively well. She has a history of hypertension severe mitral regurgitation blood loss anemia following surgery left subclavian stenosis paroxysmal atrial fibrillation GI bleed and obesity. This morning, she'll come off the BiPAP and go back to nasal O2. She prefers a nasal O2 over the BiPAP device. She may have had an episode of aspiration last night. Speech pathology was consulted. In addition , I did check for a DVT in the right upper extremity and the Doppler was negative. Progress note dated 12/03/2017 67-year-old female postop day #7, status post single-vessel bypass grafting and mitral valve replacement. The patient has been doing relatively well although this morning she was a bit more short of breath. Chest x-ray does show some fluid overload. She's been on and off of BiPAP. This morning she was on O2 nasal cannula at 3 L. The cardiothoracic practitioner thought she was a bit more short of breath I went and saw her. I looked at her chest x-ray. We asked her to go back on BiPAP at 14 and 5 and 40% and we also gave her Lasix 60 mg IV push. She seemed be doing a lot better now. She's not receiving any IV fluids. Chest x-ray does show fluid overload. Again the Lasix was given this morning. She was a bit to This morning. Breathing about 25 times a minute. No swapnil distress. In addition, she has a history of hypertension severe mitral regurgitation blood loss anemia following her open heart surgery, left subclavian artery stenosis paroxysmal atrial fibrillation GI bleed and obesity. Progress note dated 12/04/2017 67-year-old female, postop day #8, status post single-vessel bypass grafting and mitral valve replacement. The patient's overall situation is been reasonable. She seemed to do do better while she is on BiPAP therapy. When she is a bit more short of breath, she does poorly when she's not on BiPAP. Chest x-ray shows some fluid overload. She has some cephalization to the upper lobes. In addition, she is either consolidation atelectasis or infiltrates in the lower lobes. In addition, probably has some pleural effusions bilaterally. Currently she is on 7 L high flow. She's not receiving any IV fluids. When she is on BiPAP, she is on settings of 14 and 5 and 40%. She did receive some Lopressor for atrial fibrillation with RVR. Cardiothoracic surgery ask about antibiotics for possible pneumonia. Is not unreasonable to add some antibiotics to her regimen. She may have some pneumonia hiding in the lung spaces bilaterally. She isn't producing any phlegm. There's been no fever or chills. Other than that, she is doing reasonably well. Labs x-rays a medications are all reviewed. Personal dated 12/05/2017 The patient is seen again today in follow-up in the intensive care unit. This is postoperative day #9. She remains quite BiPAP dependent. Settings 14/5 at 40% FiO2. She is quite short of breath with any minimal exertion. Her chest x- ray continues to show evidence of fluid volume overload with bilateral effusions right greater than left. She is status post 11 units of packed red blood cells, 4 units of fresh frozen plasma, 2 units of platelets and 1 of pheresis platelets, 20 units 20 cryoprecipitate and remains in a significant positive balance overall. He is also had ongoing issues with atrial fibrillation/flutter with rapid ventricular rates. White count 27.5. Hemoglobin 9.1. Platelet count is 287. INR 1.6. Creatinine 0.73. She remains on bronchodilators, Pulmicort inhalations, IV Solu-Medrol. Antibiotics in the form of Zosyn. She is on amiodarone, digoxin, beta blockers and warfarin. On 12/06/2017 patient seen again in the intensive care unit, she remains on BiPAP with pressures of 14/5, and FiO2 40%. O2 sat is around 97%. She is tolerating it well. She remains in A. fib with a rate of 110 to 115 BPM, hemodynamically stable. Lung sounds reveal diminished lung sounds bilaterally. Chest x-ray from this morning was reviewed and showed prominent interstitium and central vascularity with bibasilar increased density compatible with bilateral pleural effusions. Patient appears to be fairly comfortable at rest, oxygenating well on FiO2 40%. Her INR today is 2.2, she is awaiting cardioversion on 12/07/2017. After discussion with cardiothoracic surgery, he was decided to wait with thoracentesis until after the cardioversion, because the patient is currently sufficiently anticoagulated for the procedure. We'll attempt to diurese with Lasix and Zaroxolyn. Patient remains on oral amiodarone , digoxin for rate control. Remains on Coumadin anticoagulant coagulation. Zosyn, IV Solu-Medrol 31 g every 8 hours, Pulmicort, and DuoNeb nebulized treatments. On 12/07/2017 patient is seen post synchronized cardioversion for atrial fibrillation with RVR. Patient was successfully cardioverted with 360 J 1. Currently in sinus rhythm with a rate of 87 BPM. Hemodynamically stable, BP is 10/07/1955, she remains on BiPAP support, with pressures of 14/5, and FiO2 of 40 %. She is not on any maintenance drips, IV LR infusing at 20 ML per hour. Lung sounds are positive for scattered rhonchi, good air entry bilaterally, no wheezes noted. Today's chest x-ray shows stable diffuse bilateral areas of infiltrate and pleural effusions. Patient has been diuresed with IV Lasix of 40 mg every 12 hours in addition to Zaroxolyn 5 mg daily. Today's lab work shows WBC trending down, down to 17.0 from 22.6, hemoglobin is stable at 9.4, sodium is 138, potassium is 3.8, chloride is 95, CO2 is 40, BUN is 54, creatinine is 0.80. Urine culture is positive for E. coli and Serratia marcescens both of which are sensitive to Zosyn, which the patient has been on since 12/04/2017. Patient continues on IV steroids, DuoNeb, Pulmicort. She remains anticoagulated with warfarin, INR today is at 3.8. On 12/08/2017 patient seen again in the intensive care unit, currently off the BiPAP on 6 L per nasal cannula eating breakfast. Her BiPAP support for most of the day yesterday and at night. Still becomes quite dyspneic with any exertion , even getting on and off the bedpan. Lung sounds are diminished over left lower lobe, there are some scattered rhonchi bilaterally. Today's chest x-ray shows persistence of bibasilar densities, prominence of central vascularity, and blunting of the left costophrenic angle, variable with left pleural effusion. There is a area of opacity in the left lower lobe that could possibly represent atelectasis, versus pneumonia versus pulmonary edema. There is little improvement on the chest x-ray or level of dyspnea despite the intensive diuresis. Patient is in -3497 mL fluid balance over the last 24 hours. Bilateral lower extremity and upper extremity edema has improved. Her weight is down almost 4 kg in the last 24 hours. White count continues to trend down, down to 16.4 on today's lab work, hemoglobin is 9.3, INR is 4.8. Patient received 2 g of vitamin K IV this morning. Patient continues on Zosyn, for evidence of E. coli and Serratia marcescens in the urine culture that are both sensitive to Zosyn. Midsternal incision has started to open, and is draining copious amount of serosanguineous drainage in the lower portion of the midsternal incision. The wound is packed per CT surgery, and covered with dressings. Patient was cardioverted successfully yesterday, she remains in sinus rhythm with a controlled rate. She remains afebrile. Objective - Vital Signs Vital signs: Vital Signs Temp 98.0 F 12/08/17 04:00 Pulse 86 12/08/17 09:41 Resp 13 12/08/17 07:00 BP 124/65 12/08/17 07:00 Pulse Ox 99 12/08/17 07:00 Intake & Output 12/07/17 12/08/17 12/08/17 18:59 06:59 18:59 Intake Total 305.0 422.5 275.0 Output Total 2950 1275 350 Balance -2645.0 -852.5 -75.0 Weight 103 kg 99.1 kg Intake: IV 305.0 62.5 75.0 Lactated Ringers 1,000 ml 80 @ 20 mls/hr IV .Q24H [facility] Rx#:[id number] Phytonadione 2 mg In 50 Sodium Chloride 0.9% 50 ml @ 100 mls/hr IVPB ONCE STA Rx#:[id number] Piperacillin-Tazobactam 3 75.0 62.5 25.0 .375 gm In Dextrose/Water 1 50ml.bag @ 12.5 mls/hr IVPB Q8HR CARLEE Rx#: [id number] Potassium Chloride 10 meq 150 In Sodium Chloride 0.9% 100 ml @ 100 mls/hr IV Q1H [facility] Rx#:[id number] Oral 360 200 Output: Urine 2950 1275 350 Other: Voiding Method Bedpan Bedpan ABP, PAP, CO, CI - Last Documented Arterial Blood Pressure 110/60 Pulmonary Artery Pressure 38/33 Cardiac Output 5.8 Cardiac Index 2.9 - Exam GENERAL EXAM: Alert, pleasant, 67-year-old white female, in no apparent distress , currently on 6 L per high flow nasal cannula, wears BiPAP set time other than during meals. HEAD: Normocephalic. EYES: Normal reaction of pupils, equal size. NOSE: Clear with pink turbinates. THROAT: No erythema or exudates. NECK: No masses, no JVD. CHEST: No chest wall deformity. Midsternal incision has started to open, packed in the distal portion of the incision, there is a large amount of serosanguineous drainage at the distal end of the incision. The incision is covered with the dressing. Heart Hugger is in place LUNGS: Equal air entry with scattered rhonchi bilaterally, diminished over left lower lobe CVS: S1 and S2, irregular with no audible murmur, irregular rhythm. ABDOMEN: No hepatosplenomegaly, normal bowel sounds, no guarding or rigidity. SPINE: No scoliosis or deformity SKIN: No rashes CENTRAL NERVOUS SYSTEM: No focal deficits, tone is normal in all 4 extremities. EXTREMITIES: There is no peripheral edema. No clubbing, no cyanosis. Peripheral pulses are intact. Left-sided PICC line present - Labs CBC & Chem 7: 12/08/17 04:50 12/08/17 04:50 Labs: Abnormal Lab Results - Last 24 Hours (Table) 12/07/17 12/07/17 12/07/17 Range/Units 12:07 17:10 20:06 WBC (3.8-10.6) k/uL RBC (3.80-5.40) m/uL Hgb (11.4-16.0) gm/dL Hct (34.0-46.0) % MCHC (31.0-37.0) g/dL RDW (11.5-15.5) % Neutrophils # (1.3-7.7) k/uL Lymphocytes # (1.0-4.8) k/uL PT (9.0-12.0) sec INR (<1.2) ABG pH (7.35-7.45) ABG pCO2 (35-45) mmHg ABG pO2 (83-108) mmHg ABG HCO3 (21-25) mmol/L ABG Total CO2 (19-24) mmol/L Chloride (98-107) mmol/L Carbon Dioxide (22-30) mmol/L BUN (7-17) mg/dL Glucose (74-99) mg/dL POC Glucose (mg/dL) 152 H 133 H 123 H (75-99) mg/dL AST (14-36) U/L Total Protein (6.3-8.2) g/dL Albumin (3.5-5.0) g/dL 12/07/17 12/08/17 12/08/17 Range/Units 20:56 04:50 04:50 WBC 16.4 H (3.8-10.6) k/uL RBC 3.54 L (3.80-5.40) m/uL Hgb 9.3 L (11.4-16.0) gm/dL Hct 31.0 L (34.0-46.0) % MCHC 29.9 L (31.0-37.0) g/dL RDW 17.7 H (11.5-15.5) % Neutrophils # 15.4 H (1.3-7.7) k/uL Lymphocytes # 0.3 L (1.0-4.8) k/uL PT (9.0-12.0) sec INR (<1.2) ABG pH 7.50 H (7.35-7.45) ABG pCO2 50 H (35-45) mmHg ABG pO2 70 L (83-108) mmHg ABG HCO3 38 H (21-25) mmol/L ABG Total CO2 40 H (19-24) mmol/L Chloride 93 L (98-107) mmol/L Carbon Dioxide 41 H* (22-30) mmol/L BUN 59 H (7-17) mg/dL Glucose 110 H (74-99) mg/dL POC Glucose (mg/dL) (75-99) mg/dL AST 59 H (14-36) U/L Total Protein 5.9 L (6.3-8.2) g/dL Albumin 2.6 L (3.5-5.0) g/dL 12/08/17 12/08/17 Range/Units 04:50 07:08 WBC (3.8-10.6) k/uL RBC (3.80-5.40) m/uL Hgb (11.4-16.0) gm/dL Hct (34.0-46.0) % MCHC (31.0-37.0) g/dL RDW (11.5-15.5) % Neutrophils # (1.3-7.7) k/uL Lymphocytes # (1.0-4.8) k/uL PT 43.3 H (9.0-12.0) sec INR 4.8 H (<1.2) ABG pH (7.35-7.45) ABG pCO2 (35-45) mmHg ABG pO2 (83-108) mmHg ABG HCO3 (21-25) mmol/L ABG Total CO2 (19-24) mmol/L Chloride (98-107) mmol/L Carbon Dioxide (22-30) mmol/L BUN (7-17) mg/dL Glucose (74-99) mg/dL POC Glucose (mg/dL) 107 H (75-99) mg/dL AST (14-36) U/L Total Protein (6.3-8.2) g/dL Albumin (3.5-5.0) g/dL Microbiology - Last 24 Hours (Table) 12/07/17 15:40 Gram Stain - Preliminary Chest Wound Culture - Preliminary Assessment and Plan Plan: Assessment: #1. Severe mitral valve regurgitation, status post mitral valve replacement, with Maze procedure, left atrial appendage exclusion, and one-vessel bypass, postop day 12 #2. Postoperative respiratory failure with failure to wean, with extubation occurring on 11/30/2017, currently on BiPAP support with pressures 14 over 4, FiO2 65% #3. Chest x-ray evidence of fluid overload, bilateral pleural effusions right greater than left, patient is being diuresed with a combination of Lasix and metolazone, remains in negative fluid balance #4. Metabolic alkalosis most likely related to volume contraction alkalosis secondary to IV diuresis, will start IV Diamox 2 doses today #5. acute urinary tract infection, urine culture positive for E. coli and Serratia marcescens both of which are sensitive to Zosyn, which the patient is currently on #6. Acute blood loss anemia requiring blood transfusion, today's hemoglobin is 9.4 #7. History of hypertension #8. History of severe mitral regurgitation #9. History of left subclavian stenosis #10. Paroxysmal atrial fibrillation, anticoagulated with warfarin, awaiting cardioversion on 12/07/2017 #11. History of GI bleed #12. Obesity #13. Possible aspiration with aspiration pneumonia, currently on Zosyn. Plan: We'll obtain CT of the chest today to investigate the left lower lobe opacity representing atelectasis versus airspace disease versus loculated pleural effusion. Patient is still BiPAP dependent and very dyspneic, despite intensive diuresis. We will give the patient 2 doses of IV Diamox today, patient received 2 mg of vitamin K for INR 4.8. Patient remains in sinus rhythm after the cardioversion. Continue IV diuresis, continue Zaroxolyn. Continue IV Solu-Medrol. Continue Zosyn. We'll repeat blood gases tomorrow morning. I performed a history & physical examination of the patient and discussed their management with my nurse practitioner, Yuliet Lopez. I reviewed the nurse practitioner's note and agree with the documented findings and plan of care. Lung sounds are positive for scattered rhonchi bilaterally, with diminished lung sounds over left lower lobe. The findings and the impression was discussed with the patient. I attest to the documentation by the nurse practitioner. Time with Patient: Greater than 30
--- NOTE | 2017-12-08 11:36 | CT ---
EXAMINATION TYPE: CT chest wo con DATE OF EXAM: 12/08/2017 COMPARISON: 11/23/2017 HISTORY: 67-year-old female Shortness of breath TECHNIQUE: Contiguous axial scanning of the chest without IV contrast. Coronal and sagittal reconstru ctions performed. CT DLP: 595.10 mGycm Automated exposure control for dose reduction was used. FINDINGS: Left CVC tip at the upper SVC. Interval median sternotomy. There is dehiscence of the median sternotomy with a sternal defect measur ing 2.7 cm wide and associated wound extending to the skin surface. Mixed air, fluid, and packing mat erial is present along the external cassettes. Heart upper limits of normal in size. There is a moderate to large pericardial effusion predominantly collected left laterally measuring 2.8 cm thick. Difficult to exclude some mass effect onto the left ventricle. Interval prosthetic mitral valve. Left atrial dilatation relatively similar. The right at rium does not appear to be significantly dilated. Coronary artery calcifications are present. Aorta normal caliber. A stent is present in the proximal left subclavian artery. No thoracic lymphadenopathy seen. There is a moderate left pleural effusion with adjacent collapse of the left lower lobe and inferior lingula. Small right pleural effusion with subsegmental atelectasis of the basilar right lower lobe. Visualized upper abdomen shows a small hiatal hernia. Bones: Sternal dehiscence mentioned above. Endplate spondylosis mid to lower thoracic spine. IMPRESSION: 1. STERNAL DEHISCENCE. THE 2.7 CM WIDE STERNAL DEFECT CONTAINS MIXED AIR, FLUID, AND PACKING MATERIAL . 2. MODERATE TO LARGE PERICARDIAL EFFUSION PREDOMINANTLY ALONG THE LEFT SIDE OF THE HEART (2.8 CM THIC K). DIFFICULT TO EXCLUDE SOME MASS EFFECT ONTO THE LEFT VENTRICLE WHICH APPEARS NARROWED IN CALIBER R ELATIVE TO THE DILATED LEFT ATRIUM. HOWEVER, THERE IS NO SIGNIFICANT RIGHT ATRIAL DILATATION TO CLEAR LY INDICATE TAMPONADE PHYSIOLOGY BY CT. FURTHER CLINICAL AND PHYSICAL EXAM CORRELATION IS RECOMMENDED . 3. MODERATE LEFT PLEURAL EFFUSION WITH ADJACENT COMPLETE LEFT LOWER LOBAR AND INFERIOR LINGULAR COLLA PSE. 4. SMALL RIGHT PLEURAL EFFUSION WITH SUBSEGMENTAL ATELECTASIS AT THE RIGHT BASE.
[2017-12-08 11:56] LABS: Glucose,Whole Blood 120 mg/dL (75-99)
--- NOTE | 2017-12-08 13:05 | P.PN ---
Subjective Maintains sinus rhythm. Yesterday she underwent electrical cardioversion. However she is still short of breath. Wound dehiscence is noted. Pericardial effusion on the left side of the heart Moderate left pleural effusion with left lower lobar and inferior lingula collapse Small right pleural effusion Breath sounds are reduced bilaterally Heart sounds are soft Impression CAD status post coronary bypass grafting Mitral disease status post replacement Maze Procedure Postoperative atrial fibrillation and atrial flutter status post electrical cardioversion yesterday No significant improvement in her shortness of breath despite maintaining sinus rhythm for 24 hours Suggest continue current medications and ICU care and appropriate interventions for wound dehiscence and pleural effusion on the left side resulting in collapse of the lungs Objective - Vital Signs Vital signs: Vital Signs Temp 97.6 F 12/08/17 08:00 Pulse 86 12/08/17 10:00 Resp 21 12/08/17 10:00 BP 109/58 12/08/17 10:00 Pulse Ox 100 12/08/17 10:00 Intake & Output 12/07/17 12/08/17 12/08/17 18:59 06:59 18:59 Intake Total 305.0 422.5 287.5 Output Total 2950 1275 700 Balance -2645.0 -852.5 -412.5 Weight 103 kg 99.1 kg Intake: IV 305.0 62.5 87.5 Lactated Ringers 1,000 ml 80 @ 20 mls/hr IV .Q24H [facility] Rx#:[id number] Phytonadione 2 mg In 50 Sodium Chloride 0.9% 50 ml @ 100 mls/hr IVPB ONCE STA Rx#:[id number] Piperacillin-Tazobactam 3 75.0 62.5 37.5 .375 gm In Dextrose/Water 1 50ml.bag @ 12.5 mls/hr IVPB Q8HR [facility] Rx#: [id number] Potassium Chloride 10 meq 150 In Sodium Chloride 0.9% 100 ml @ 100 mls/hr IV Q1H [facility] Rx#:[id number] Oral 360 200 Output: Urine 2950 1275 700 Other: Voiding Method Bedpan Bedpan Bedpan ABP, PAP, CO, CI - Last Documented Arterial Blood Pressure 110/60 Pulmonary Artery Pressure 38/33 Cardiac Output 5.8 Cardiac Index 2.9 - Labs CBC & Chem 7: 12/08/17 04:50 12/08/17 04:50 Labs: Abnormal Lab Results - Last 24 Hours (Table) 12/07/17 12/07/17 12/07/17 Range/Units 17:10 20:06 20:56 WBC (3.8-10.6) k/uL RBC (3.80-5.40) m/uL Hgb (11.4-16.0) gm/dL Hct (34.0-46.0) % MCHC (31.0-37.0) g/dL RDW (11.5-15.5) % Neutrophils # (1.3-7.7) k/uL Lymphocytes # (1.0-4.8) k/uL PT (9.0-12.0) sec INR (<1.2) ABG pH 7.50 H (7.35-7.45) ABG pCO2 50 H (35-45) mmHg ABG pO2 70 L (83-108) mmHg ABG HCO3 38 H (21-25) mmol/L ABG Total CO2 40 H (19-24) mmol/L Chloride (98-107) mmol/L Carbon Dioxide (22-30) mmol/L BUN (7-17) mg/dL Glucose (74-99) mg/dL POC Glucose (mg/dL) 133 H 123 H (75-99) mg/dL AST (14-36) U/L Total Protein (6.3-8.2) g/dL Albumin (3.5-5.0) g/dL 12/08/17 12/08/17 12/08/17 Range/Units 04:50 04:50 04:50 WBC 16.4 H (3.8-10.6) k/uL RBC 3.54 L (3.80-5.40) m/uL Hgb 9.3 L (11.4-16.0) gm/dL Hct 31.0 L (34.0-46.0) % MCHC 29.9 L (31.0-37.0) g/dL RDW 17.7 H (11.5-15.5) % Neutrophils # 15.4 H (1.3-7.7) k/uL Lymphocytes # 0.3 L (1.0-4.8) k/uL PT 43.3 H (9.0-12.0) sec INR 4.8 H (<1.2) ABG pH (7.35-7.45) ABG pCO2 (35-45) mmHg ABG pO2 (83-108) mmHg ABG HCO3 (21-25) mmol/L ABG Total CO2 (19-24) mmol/L Chloride 93 L (98-107) mmol/L Carbon Dioxide 41 H* (22-30) mmol/L BUN 59 H (7-17) mg/dL Glucose 110 H (74-99) mg/dL POC Glucose (mg/dL) (75-99) mg/dL AST 59 H (14-36) U/L Total Protein 5.9 L (6.3-8.2) g/dL Albumin 2.6 L (3.5-5.0) g/dL 12/08/17 12/08/17 Range/Units 07:08 11:55 WBC (3.8-10.6) k/uL RBC (3.80-5.40) m/uL Hgb (11.4-16.0) gm/dL Hct (34.0-46.0) % MCHC (31.0-37.0) g/dL RDW (11.5-15.5) % Neutrophils # (1.3-7.7) k/uL Lymphocytes # (1.0-4.8) k/uL PT (9.0-12.0) sec INR (<1.2) ABG pH (7.35-7.45) ABG pCO2 (35-45) mmHg ABG pO2 (83-108) mmHg ABG HCO3 (21-25) mmol/L ABG Total CO2 (19-24) mmol/L Chloride (98-107) mmol/L Carbon Dioxide (22-30) mmol/L BUN (7-17) mg/dL Glucose (74-99) mg/dL POC Glucose (mg/dL) 107 H 120 H (75-99) mg/dL AST (14-36) U/L Total Protein (6.3-8.2) g/dL Albumin (3.5-5.0) g/dL Microbiology - Last 24 Hours (Table) 12/07/17 15:40 Gram Stain - Preliminary Chest Wound Culture - Preliminary
[2017-12-08] MEDS: SODIUM CHLORIDE 0.9% 1,000 ML IV SCH (13:47)
[2017-12-08 17:28] LABS: Glucose,Whole Blood 136 mg/dL (75-99)
--- NOTE | 2017-12-08 17:39 | ECHOF ---
Referral Reason:eval pericardial effusion MEASUREMENTS -------- HEIGHT: 162.6 cm WEIGHT: 98.9 kg BP: 112/55 IVSd: 1.0 cm (0.6 - 1.1) LVIDd: 4.2 cm (3.9 - 5.3) LVPWd: 1.2 cm (0.6 - 1.1) IVSs: 1.3 cm LVIDs: 3.2 cm LVPWs: 1.4 cm LAESV Index (A-L): 22.97 ml/m FINDINGS -------- Sinus rhythm. This was a technically adequate study. Limited Study for assessment of pericardial effusion. The left ventricular size is normal. There is borderline concentric left ventricular hypertrophy. Overall left ventricular systolic function is low-normal with, an EF between 50 - 55 %. There is a small, generalized pericardial effusion present. CONCLUSIONS -------- 1. Sinus rhythm. 2. This was a technically adequate study. 3. Limited Study for assessment of pericardial effusion. 4. The left ventricular size is normal. 5. There is borderline concentric left ventricular hypertrophy. 6. Overall left ventricular systolic function is low-normal with, an EF between 50 - 55 %. 7. There is a small, generalized pericardial effusion present. [employer] SALESPERSON: Myke Ribera RDCS
--- NOTE | 2017-12-08 19:05 | P.PN ---
Subjective Progress Note Date: 12/08/17 Progress note being dictated for Dr. Lugo. Interval history: This is 67-year-old female status post CABG, mitral valve replacement, status post multiple blood products transfusions. Remains vent dependent on 40% FiO2/+5 of PEEP. Chest x-ray reporting fluid overload, improvement in volume status, aeration.Maintained on norepinephrine, Primacor, dopamine and insulin drip. Cardiac index 2.7. Telemetry atrial flutter/sinus tach. Tube feeding initiated via OG tube. Hemoglobin 7.3, Platelets decreased to 64 today, maintained on low-dose aspirin. Review systems unable to obtain as patient sedated and on mechanical ventilation. Active Medications Albuterol/Ipratropium (Duoneb 0.5 Mg-3 Mg/3 Ml Soln) 3 ml INHALATION RT-Q4H [facility] Last Admin: 11/29/17 15:17 Dose: 3 ml Albuterol/Ipratropium (Duoneb 0.5 Mg-3 Mg/3 Ml Soln) 3 ml INHALATION RT-Q2H PRN PRN Reason: Shortness Of Breath Or Wheezing Amiodarone HCl (Cordarone) 200 mg PO BID [facility] Aspirin (Aspirin) 81 mg PO DAILY [facility] Last Admin: 11/29/17 08:54 Dose: 81 mg Atorvastatin Calcium (Lipitor) 40 mg PO DAILY [facility] Last Admin: 11/29/17 08:54 Dose: 40 mg Benzocaine/Menthol (Cepacol Lozenge) 1 each MUCOUS MEM Q2H PRN PRN Reason: Sore Throat Bisacodyl (Dulcolax) 10 mg RECTAL DAILY PRN PRN Reason: Constipation Chlorhexidine Gluconate (Peridex) 15 ml MUCOUS MEM BID [facility] Last Admin: 11/29/17 08:48 Dose: 15 ml Furosemide (Lasix) 40 mg IV ONCE ONE Stop: 11/29/17 20:01 Propofol 1,000 mg/ IV Solution 100 mls @ 0 mls/hr IV .Q0M [facility]; Titrate PRN Reason: Protocol Last Admin: 11/29/17 17:54 Dose: 26.13 mcg/kg/min, 17.2 mls/hr Norepinephrine Bitartrate (Levophed-0.9% Nacl 16 Mg/250ml Pmx) 16 mg in 250 mls @ 0 mls/hr IV .Q0M [facility]; Titrate PRN Reason: Protocol Last Admin: 11/29/17 17:54 Dose: 2 mcg/min, 1.875 mls/hr Sodium Chloride (Saline 0.45%) 1,000 mls @ 30 mls/hr IV .Q24H [facility] Last Admin: 11/29/17 10:28 Dose: Not Given Milrinone Lactate/Dextrose 20 (mg/ IV Solution) 100 mls @ 6.58 mls/hr IV .[id number] [facility] PRN Reason: 0.2 MCG/KG/MIN Last Admin: 11/29/17 15:38 Dose: 0.2 mcg/kg/min, 6.58 mls/hr Insulin Aspart (Novolog) 0 unit SQ Q6HR [facility] PRN Reason: Protocol Last Admin: 11/29/17 12:36 Dose: Not Given Magnesium Hydroxide (Milk Of Magnesia) 2,400 mg PO BID PRN PRN Reason: Constipation Metoprolol Tartrate (Lopressor) 12.5 mg PO BID [facility] Last Admin: 11/29/17 08:55 Dose: 12.5 mg Miscellaneous Information (Magnesium Per Protocol) 1 each MISCELLANE DAILY PRN ; Protocol PRN Reason: Per Protocol Miscellaneous Information (Phosphorus Per Protocol) 1 each MISCELLANE DAILY PRN ; Protocol PRN Reason: Per Protocol Miscellaneous Information (Potassium Per Protocol) 1 each MISCELLANE DAILY PRN ; Protocol PRN Reason: Per Protocol Miscellaneous Information (Potassium Per Protocol) 1 each MISCELLANE DAILY PRN ; Protocol PRN Reason: Per Protocol Morphine Sulfate (Morphine Oral Dana 2mg/Ml) 6 mg PO Q2H PRN PRN Reason: Severe Pain Ondansetron HCl (Zofran) 4 mg IVP Q6HR PRN PRN Reason: Nausea And Vomiting Pantoprazole Sodium (Protonix) 40 mg IVP DAILY [facility] Last Admin: 11/29/17 08:55 Dose: 40 mg Senna/Docusate Sodium (Senokot-S) 2 each PO HS [facility] Last Admin: 11/28/17 20:41 Dose: 2 each Sodium Chloride (Saline Flush) 10 ml IV BID [facility] Last Admin: 11/29/17 08:56 Dose: 10 ml 11/30/2017 Chest x-ray reporting increased congestion, received additional Lasix. extubated this morning, currently maintained on BiPAP. Norepinephrine weaned off this morning. Maintained on Primacor, cardiac index 2.6. Received 1 dose of Lasix IV push. Renal function improving. Hemoglobin 7, platelets increased to 74. Atrial flutter per telemetry. Review systems unable to obtain as patient BiPAP dependent. Active Medications Generic Name Dose Route Start Last Admin Trade Name Freq PRN Reason Stop Dose Admin Albuterol/Ipratropium 3 ml 11/25/17 20:00 11/30/17 15:23 Duoneb 0.5 Mg-3 Mg/3 Ml Soln INHALATION 3 ml RT-Q4H CARLEE Administration Albuterol/Ipratropium 3 ml 11/26/17 17:53 Duoneb 0.5 Mg-3 Mg/3 Ml Soln INHALATION RT-Q2H PRN Shortness Of Breath Or Wheezing Amiodarone HCl 200 mg 11/29/17 21:00 11/30/17 08:14 Cordarone PO 200 mg BID CARLEE Administration Aspirin 81 mg 11/26/17 10:15 11/30/17 08:15 Aspirin PO 81 mg DAILY CAR[facility]E Administration Atorvastatin Calcium 40 mg 11/26/17 09:00 11/30/17 08:14 Lipitor PO 40 mg DAILY CAR[facility]E Administration Benzocaine/Menthol 1 each 11/25/17 19:03 Cepacol Lozenge MUCOUS MEM Q2H PRN Sore Throat Bisacodyl 10 mg 11/26/17 17:52 Dulcolax RECTAL DAILY PRN Constipation Fondaparinux 2.5 mg 11/30/17 11:30 11/30/17 13:23 Arixtra SQ 2.5 mg DAILY CARLEE Administration Norepinephrine Bitartrate 16 mg in 250 mls @ 0 mls/hr 11/26/17 04:15 11:58 Levophed-0.9% Nacl 16 Mg/250ml Pmx IV 0 mcg/min .Q0M CARLEE 0 mls/hr Protocol Titration Titrate Sodium Chloride 1,000 mls @ 10 mls/hr 11/26/17 10:15 11/30/17 12:51 Saline 0.45% IV Not Given .Q24H [facility] Milrinone Lactate/Dextrose 20 100 mls @ 6.58 mls/hr 11/29/17 15:00 11/30/17 08:16 mg/ IV Solution IV 0.2 mcg/kg/min .[id number] CARLEE 6.58 mls/hr 0.2 MCG/KG/MIN Infusion Insulin Aspart 0 unit 11/29/17 12:00 11/30/17 12:50 Novolog SQ Not Given Q6HR [facility] Protocol Magnesium Hydroxide 2,400 mg 11/26/17 17:53 Milk Of Magnesia PO BID PRN Constipation Metoprolol Tartrate 12.5 mg 11/26/17 09:00 11/30/17 08:15 Lopressor PO 12.5 mg BID CARLEE Administration Miscellaneous Information 1 each 11/25/17 19:03 Magnesium Per Protocol MISCELLANE DAILY PRN Per Protocol Protocol Miscellaneous Information 1 each 11/25/17 19:03 Phosphorus Per Protocol MISCELLANE DAILY PRN Per Protocol Protocol Miscellaneous Information 1 each 11/25/17 19:03 Potassium Per Protocol MISCELLANE DAILY PRN Per Protocol Protocol Miscellaneous Information 1 each 11/29/17 12:01 Potassium Per Protocol MISCELLANE DAILY PRN Per Protocol Protocol Morphine Sulfate 6 mg 11/29/17 13:31 Morphine Oral Dana 2mg/Ml PO Q2H PRN Severe Pain Ondansetron HCl 4 mg 11/25/17 19:03 Zofran IVP Q6HR PRN Nausea And Vomiting Pantoprazole Sodium 40 mg 11/26/17 09:00 11/30/17 08:15 Protonix IVP 40 mg DAILY CAR[facility]E Administration Senna/Docusate Sodium 2 each 11/26/17 21:00 11/29/17 20:40 Senokot-S PO 2 each HS CARLEE Administration Sodium Chloride 10 ml 11/25/17 21:00 11/30/17 08:15 Saline Flush IV 10 ml BID CARLEE Administration 12/01/2017 Breathing improving, weaned off of BiPAP and down to 6 L high flow. Wheezing resolved. Chest x-ray reports improvement. Staff reports patient appeared to be choking on pills last night, speech therapy consulted. Receiving one unit of packed RBCs for hemoglobin of 6.7. Mediastinal chest tubes discontinued, left pleural chest tube remains. Maintained on Primacor. Telemetry atrial flutter. Review of systems: CONSTITUTIONAL: No fever, no malaise HEENT: No recent visual problems or hearing problems. Denied any sore throat. CARDIOVASCULAR: No chest pain, no palpitations, no syncope. PULMONARY: Improving shortness of breath, no cough, no hemoptysis. GASTROINTESTINAL: No diarrhea, no nausea, no vomiting, no abdominal pain. Normoactive bowel sounds. NEUROLOGICAL: No headaches, diffuse weakness, no numbness. HEMATOLOGICAL: Denies any bleeding or petechiae. GENITOURINARY: Denies any burning micturition, frequency, or urgency. ENDOCRINE: Denies any polyuria or polydipsia. PSYCHIATRIC: No anxiety, no depression Active Medications Hydrocodone Bitart/Acetaminophen ([place] 5-325) 1 each PO Q4HR PRN PRN Reason: MILD TO MODERATE Pain Last Admin: 12/01/17 22:44 Dose: 1 each Hydrocodone Bitart/Acetaminophen ([place] 5-325) 2 each PO Q4HR PRN PRN Reason: MODERATE TO SEVERE Pain Albuterol/Ipratropium (Duoneb 0.5 Mg-3 Mg/3 Ml Soln) 3 ml INHALATION RT-Q4H [facility] Last Admin: 12/02/17 15:06 Dose: 3 ml Albuterol/Ipratropium (Duoneb 0.5 Mg-3 Mg/3 Ml Soln) 3 ml INHALATION RT-Q2H PRN PRN Reason: Shortness Of Breath Or Wheezing Last Admin: 12/01/17 18:09 Dose: 3 ml Amiodarone HCl (Cordarone) 200 mg PO BID [facility] Last Admin: 12/02/17 08:10 Dose: 200 mg Aspirin (Aspirin) 81 mg PO DAILY [facility] Last Admin: 12/02/17 08:10 Dose: 81 mg Atorvastatin Calcium (Lipitor) 40 mg PO DAILY [facility] Last Admin: 12/02/17 08:10 Dose: 40 mg Benzocaine/Menthol (Cepacol Lozenge) 1 each MUCOUS MEM Q2H PRN PRN Reason: Sore Throat Bisacodyl (Dulcolax) 10 mg RECTAL DAILY PRN PRN Reason: Constipation Budesonide (Pulmicort) 1 mg INHALATION RT-BID [facility] Last Admin: 12/02/17 07:19 Dose: 1 mg Fondaparinux (Arixtra) 2.5 mg SQ DAILY [facility] Last Admin: 12/02/17 08:10 Dose: 2.5 mg Formoterol Fumarate (Perforomist) 20 mcg INHALATION RT-BID [facility] Last Admin: 12/02/17 07:36 Dose: 20 mcg Norepinephrine Bitartrate (Levophed-0.9% Nacl 16 Mg/250ml Pmx) 16 mg in 250 mls @ 0 mls/hr IV .Q0M [facility]; Titrate PRN Reason: Protocol Last Titration: 11/30/17 11:58 Dose: 0 mcg/min, 0 mls/hr Sodium Chloride (Saline 0.45%) 1,000 mls @ 10 mls/hr IV .Q24H [facility] Last Admin: 12/01/17 14:04 Dose: 10 mls/hr Milrinone Lactate/Dextrose 20 (mg/ IV Solution) 100 mls @ 6.58 mls/hr IV .[id number] [facility] PRN Reason: 0.2 MCG/KG/MIN Last Admin: 12/02/17 08:57 Dose: 0.2 mcg/kg/min, 6.58 mls/hr Insulin Aspart (Novolog) 0 unit SQ Q6HR [facility] PRN Reason: Protocol Last Admin: 12/02/17 12:53 Dose: Not Given Magnesium Hydroxide (Milk Of Magnesia) 2,400 mg PO BID PRN PRN Reason: Constipation Methylprednisolone Sodium Succinate (Solu-Medrol) 30 mg IV Q8HR [facility] Last Admin: 12/02/17 08:10 Dose: 30 mg Metoprolol Tartrate (Lopressor) 25 mg PO BID [facility] Last Admin: 12/02/17 08:59 Dose: 25 mg Miscellaneous Information (Magnesium Per Protocol) 1 each MISCELLANE DAILY PRN ; Protocol PRN Reason: Per Protocol Miscellaneous Information (Phosphorus Per Protocol) 1 each MISCELLANE DAILY PRN ; Protocol PRN Reason: Per Protocol Miscellaneous Information (Potassium Per Protocol) 1 each MISCELLANE DAILY PRN ; Protocol PRN Reason: Per Protocol Miscellaneous Information (Potassium Per Protocol) 1 each MISCELLANE DAILY PRN ; Protocol PRN Reason: Per Protocol Ondansetron HCl (Zofran) 4 mg IVP Q6HR PRN PRN Reason: Nausea And Vomiting Pantoprazole Sodium (Protonix) 40 mg IVP DAILY [facility] Last Admin: 12/02/17 08:10 Dose: 40 mg Senna/Docusate Sodium (Senokot-S) 2 each PO HS [facility] Last Admin: 12/01/17 21:55 Dose: 2 each Sodium Chloride (Saline Flush) 10 ml IV BID [facility] Last Admin: 12/02/17 12:51 Dose: 10 ml 12/02/17 Much more alert today. Oxygen weaned further down to 5 L nasal cannula, maintaining O2 sats in the high 90s. Pleural chest tube discontinued. Chest x- ray reporting probable right lower lobe atelectasis/effusion. Underwent modified barium swallow, with recommendations of regular diet, thin liquids, chin tuck, no straw, small bites/sepsis/sips; no impairment with exception of mild transient penetration with thin liquids which patient independently cleared. Yesterday receive 1 unit of packed RBCs with current hemoglobin 8. Weaning of Primacor in progress. 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 Review of systems: CONSTITUTIONAL: No fever, no malaise, no fatigue. HEENT: No recent visual problems or hearing problems. Denied any sore throat. CARDIOVASCULAR: No chest pain, no palpitations, no syncope. PULMONARY: Minimal shortness of breath, no cough, no hemoptysis. GASTROINTESTINAL: No diarrhea, no nausea, no vomiting, no abdominal pain. Normoactive bowel sounds. NEUROLOGICAL: No headaches, no weakness, no numbness. HEMATOLOGICAL: Denies any bleeding or petechiae. GENITOURINARY: Denies any burning micturition, frequency, or urgency. MUSCULOSKELETAL/RHEUMATOLOGICAL: Denies any joint pain, swelling, or any muscle pain. ENDOCRINE: Denies any polyuria or polydipsia. PSYCHIATRIC: No anxiety, no depression The rest of the 14 point review of systems is negative Active Medications Generic Name Dose Route Start Last Admin Trade Name Freq PRN Reason Stop Dose Admin Hydrocodone Bitart/Acetaminophen 1 each 12/01/17 12:20 12/01/17 22:44 [place] 5-325 PO 1 each Q4HR PRN Administration MILD TO MODERATE Pain Hydrocodone Bitart/Acetaminophen 2 each 12/01/17 12:20 [place] 5-325 PO Q4HR PRN MODERATE TO SEVERE Pain Albuterol/Ipratropium 3 ml 11/25/17 20:00 12/02/17 15:06 Duoneb 0.5 Mg-3 Mg/3 Ml Soln INHALATION 3 ml RT-Q4H [facility] Administration Albuterol/Ipratropium 3 ml 11/26/17 17:53 12/01/17 18:09 Duoneb 0.5 Mg-3 Mg/3 Ml Soln INHALATION 3 ml RT-Q2H PRN Administration Shortness Of Breath Or Wheezing Amiodarone HCl 200 mg 11/29/17 21:00 12/02/17 08:10 Cordarone PO 200 mg BID [facility]E Administration Aspirin 81 mg 11/26/17 10:15 12/02/17 08:10 Aspirin PO 81 mg DAILY [facility] Administration Atorvastatin Calcium 40 mg 11/26/17 09:00 12/02/17 08:10 Lipitor PO 40 mg DAILY [facility] Administration Benzocaine/Menthol 1 each 11/25/17 19:03 Cepacol Lozenge MUCOUS MEM Q2H PRN Sore Throat Bisacodyl 10 mg 11/26/17 17:52 Dulcolax RECTAL DAILY PRN Constipation Budesonide 1 mg 12/01/17 20:00 12/02/17 07:19 Pulmicort INHALATION 1 mg RT-BID [facility]E Administration Fondaparinux 2.5 mg 11/30/17 11:30 12/02/17 08:10 Arixtra SQ 2.5 mg DAILY [facility] Administration Formoterol Fumarate 20 mcg 12/01/17 20:00 12/02/17 07:36 Perforomist INHALATION 20 mcg RT-BID [facility] Administration Norepinephrine Bitartrate 16 mg in 250 mls @ 0 mls/hr 11/26/17 04:15 11:58 Levophed-0.9% Nacl 16 Mg/250ml Pmx IV 0 mcg/min .Q0M [facility] 0 mls/hr Protocol Titration Titrate Sodium Chloride 1,000 mls @ 10 mls/hr 11/26/17 10:15 12/02/17 15:41 Saline 0.45% IV Not Given .Q24H [facility] Milrinone Lactate/Dextrose 20 100 mls @ 6.58 mls/hr 11/29/17 15:00 12/02/17 08:57 mg/ IV Solution IV 0.2 mcg/kg/min .[id number] [facility] 6.58 mls/hr 0.2 MCG/KG/MIN Administration Insulin Aspart 0 unit 11/29/17 12:00 12/02/17 12:53 Novolog SQ Not Given Q6HR [facility] Protocol Magnesium Hydroxide 2,400 mg 11/26/17 17:53 Milk Of Magnesia PO BID PRN Constipation Methylprednisolone Sodium Succinate 30 mg 12/01/17 16:00 12/02/17 08:10 Solu-Medrol IV 30 mg Q8HR [facility] Administration Metoprolol Tartrate 25 mg 12/02/17 09:00 12/02/17 08:59 Lopressor PO 25 mg BID [facility]E Administration Miscellaneous Information 1 each 11/25/17 19:03 Magnesium Per Protocol MISCELLANE DAILY PRN Per Protocol Protocol Miscellaneous Information 1 each 11/25/17 19:03 Phosphorus Per Protocol MISCELLANE DAILY PRN Per Protocol Protocol Miscellaneous Information 1 each 11/25/17 19:03 Potassium Per Protocol MISCELLANE DAILY PRN Per Protocol Protocol Miscellaneous Information 1 each 11/29/17 12:01 Potassium Per Protocol MISCELLANE DAILY PRN Per Protocol Protocol Ondansetron HCl 4 mg 11/25/17 19:03 Zofran IVP Q6HR PRN Nausea And Vomiting Pantoprazole Sodium 40 mg 11/26/17 09:00 12/02/17 08:10 Protonix IVP 40 mg DAILY [facility] Administration Senna/Docusate Sodium 2 each 11/26/17 21:00 12/01/17 21:55 Senokot-S PO 2 each HS [facility] Administration Sodium Chloride 10 ml 11/25/17 21:00 12/02/17 12:51 Saline Flush IV 10 ml BID CARLEE Administration 12/03/17 maintained on nebulized bronchodilators, steroids,patient tachypneic, requiring BiPap throughout today off and on. Chest x-ray suggestive of fluid overload. Received additional Lasix. Maintained on oral amiodarone, remains in a-flutter. Overdrive atrial pacing attempted unsuccessfully. Digoxin 2 ordered. Pacer wires discontinued today. Stool at bedside with PT OT, remains extremely weak. Primacor weaned off yesterday. 2017 currently in atrial fibrillation with heart rates up into the 150s, scheduled for cardioversion tomorrow. INR 2.2. Patient currently wearing BiPAP ,has required on and off all day. Chest ultrasound reporting bilateral pleural effusions, larger on the right. Thoracentesis on hold, awaiting cardioversion.Chest x-ray reporting prominent interstitium and central vascularity, increased bibasilar density. Attempting diuresing with Lasix and Zaroxolyn. Review systems unable to obtain as patient currently on BiPAP. Active Medications Hydrocodone Bitart/Acetaminophen ([place] 5-325) 1 each PO Q4HR PRN PRN Reason: MILD TO MODERATE Pain Last Admin: 12/07/17 10:48 Dose: 1 each Hydrocodone Bitart/Acetaminophen ([place] 5-325) 2 each PO Q4HR PRN PRN Reason: MODERATE TO SEVERE Pain Last Admin: 12/07/17 16:39 Dose: 2 each Albuterol/Ipratropium (Duoneb 0.5 Mg-3 Mg/3 Ml Soln) 3 ml INHALATION RT-Q2H PRN PRN Reason: Shortness Of Breath Or Wheezing Last Admin: 12/01/17 18:09 Dose: 3 ml Albuterol/Ipratropium (Duoneb 0.5 Mg-3 Mg/3 Ml Soln) 3 ml INHALATION RT-QID [facility] Last Admin: 12/07/17 16:43 Dose: 3 ml Amiodarone HCl (Cordarone) 200 mg PO BID [facility] Aspirin (Aspirin) 81 mg PO DAILY [facility] Last Admin: 12/07/17 08:53 Dose: 81 mg Atorvastatin Calcium (Lipitor) 40 mg PO DAILY [facility] Last Admin: 12/07/17 08:53 Dose: 40 mg Benzocaine/Menthol (Cepacol Lozenge) 1 each MUCOUS MEM Q2H PRN PRN Reason: Sore Throat Bisacodyl (Dulcolax) 10 mg RECTAL DAILY PRN PRN Reason: Constipation Budesonide (Pulmicort) 1 mg INHALATION RT-BID [facility] Last Admin: 12/07/17 08:36 Dose: 1 mg Escitalopram Oxalate (Lexapro) 10 mg PO HS [facility] Furosemide (Lasix) 40 mg IV Q12HR [facility] Last Admin: 12/07/17 08:33 Dose: 40 mg Piperacillin/Tazobactam/ (Dextrose 3.375 gm/ IV Solution) 50 mls @ 12.5 mls/hr IVPB Q8HR [facility] Last Admin: 12/07/17 16:39 Dose: 12.5 mls/hr Sodium Chloride (Saline 0.9%) 1,000 mls @ 20 mls/hr IV .Q24H [facility] Last Admin: 12/07/17 13:00 Dose: 20 mls/hr Lactated Ringer's (Lactated Ringers) 1,000 mls @ 20 mls/hr IV .Q24H [facility] Last Admin: 12/06/17 20:45 Dose: 20 mls/hr Insulin Aspart (Novolog) 0 unit SQ ACHS [facility] PRN Reason: Protocol Last Admin: 12/07/17 13:01 Dose: 2 unit Magnesium Hydroxide (Milk Of Magnesia) 2,400 mg PO BID PRN PRN Reason: Constipation Methylprednisolone Sodium Succinate (Solu-Medrol) 30 mg IV Q8HR [facility] Last Admin: 12/07/17 16:39 Dose: 30 mg Metolazone (Zaroxolyn) 5 mg PO DAILY [facility] Last Admin: 12/07/17 08:53 Dose: 5 mg Metoprolol Tartrate (Lopressor) 50 mg PO BID [facility] Last Admin: 12/07/17 08:53 Dose: 50 mg Miscellaneous Information (Magnesium Per Protocol) 1 each MISCELLANE DAILY PRN ; Protocol PRN Reason: Per Protocol Miscellaneous Information (Phosphorus Per Protocol) 1 each MISCELLANE DAILY PRN ; Protocol PRN Reason: Per Protocol Miscellaneous Information (Potassium Per Protocol) 1 each MISCELLANE DAILY PRN ; Protocol PRN Reason: Per Protocol Ondansetron HCl (Zofran) 4 mg IVP Q6HR PRN PRN Reason: Nausea And Vomiting Pantoprazole Sodium (Protonix) 40 mg PO AC-BRKFST [facility] Last Admin: 12/07/17 08:53 Dose: 40 mg Senna/Docusate Sodium (Senokot-S) 2 each PO HS [facility] Last Admin: 12/06/17 20:29 Dose: 2 each Sodium Chloride (Saline Flush) 10 ml IV BID [facility] Last Admin: 12/07/17 10:48 Dose: 10 ml 12/07/2017 Underwent successful cardioversion this morning,360J X1, remains in sinus rhythm. Currently wearing BiPAP. Nonproductive cough. Diuresing well on Lasix and Zaroxolyn with 24-hour I&O reflecting a negative fluid balance. Chest x-ray reporting stable bilateral areas of infiltrate and pleural effusions , possible CHF, possible pneumonia. INR 3.8, afebrile, WBC 17. Maintained on Zosyn. Sternal wound drainage, cultures sent. 12/08/2017 Cardioverted yesterday, remains in sinus rhythm .continues requiring BiPAP for majority of morning. Echo reporting-limited study for assessment of pericardial effusion, small generalized pericardial effusion, low normal LV function, EF 50-55%. Chest CT reporting sternal dehiscence, moderate to large pericardial effusion, possible mass effect onto the left ventricle, no significant right atrial dilatation to clearly indicate tamponade, moderate left pleural effusion with adjacent complete left lower lobar and inferior lingular collapse, small right pleural effusion, right basilar subsegmental atelectasis. Chest x-ray noted. Blood sugars controlled. INR 4.8, received vitamin K this morning. Diuresing well on Lasix IV push, Zaroxolyn. 24-hour I& O reflecting a negative fluid balance, decreased weight. Midsternal incision open, draining large amount of serosanguineous drainage. Currently maintained on Zosyn. Wound cultures pending. Afebrile. Review systems unable to obtain as patient currently on BiPAP. Active Medications Generic Name Dose Route Start Last Admin Trade Name Freq PRN Reason Stop Dose Admin Hydrocodone Bitart/Acetaminophen 1 each 12/01/17 12:20 12/08/17 06:26 [place] 5-325 PO 1 each Q4HR PRN Administration MILD TO MODERATE Pain Hydrocodone Bitart/Acetaminophen 2 each 12/01/17 12:20 12/08/17 18:41 [place] 5-325 PO 2 each Q4HR PRN Administration MODERATE TO SEVERE Pain Acetazolamide Sodium 250 mg 12/08/17 09:15 12/08/17 11:16 Diamox IV 12/08/17 21:01 250 mg Q12HR CARLEE Administration Albuterol/Ipratropium 3 ml 11/26/17 17:53 12/08/17 05:16 Duoneb 0.5 Mg-3 Mg/3 Ml Soln INHALATION 3 ml RT-Q2H PRN Administration Shortness Of Breath Or Wheezing Albuterol/Ipratropium 3 ml 12/03/17 08:00 12/08/17 15:38 Duoneb 0.5 Mg-3 Mg/3 Ml Soln INHALATION 3 ml RT-QID [facility] Administration Amiodarone HCl 200 mg 12/08/17 09:00 12/08/17 08:24 Cordarone PO 200 mg BID CAR[facility]E Administration Aspirin 81 mg 11/26/17 10:15 12/08/17 08:24 Aspirin PO 81 mg DAILY [facility] Administration Atorvastatin Calcium 40 mg 11/26/17 09:00 12/08/17 08:25 Lipitor PO 40 mg DAILY [facility] Administration Benzocaine/Menthol 1 each 11/25/17 19:03 Cepacol Lozenge MUCOUS MEM Q2H PRN Sore Throat Bisacodyl 10 mg 11/26/17 17:52 Dulcolax RECTAL DAILY PRN Constipation Budesonide 1 mg 12/01/17 20:00 12/08/17 09:26 Pulmicort INHALATION 1 mg RT-BID [facility] Administration Escitalopram Oxalate 10 mg 12/07/17 21:00 12/07/17 20:10 Lexapro PO 10 mg HS CAR[facility]E Administration Piperacillin/Tazobactam/ 50 mls @ 12.5 mls/hr 12/04/17 16:00 12/08/17 16:11 Dextrose 3.375 gm/ IV Solution IVPB 12.5 mls/hr Q8HR [facility] Administration Sodium Chloride 1,000 mls @ 20 mls/hr 12/06/17 10:45 12/08/17 13:47 Saline 0.9% IV Not Given .Q24H [facility] Insulin Aspart 0 unit 12/02/17 21:00 12/08/17 17:46 Novolog SQ 1 unit ACHS [facility]E Administration Protocol Magnesium Hydroxide 2,400 mg 11/26/17 17:53 Milk Of Magnesia PO BID PRN Constipation Metoprolol Tartrate 50 mg 12/06/17 21:00 12/08/17 08:24 Lopressor PO 50 mg BID [facility] Administration Miscellaneous Information 1 each 11/25/17 19:03 Magnesium Per Protocol MISCELLANE DAILY PRN Per Protocol Protocol Miscellaneous Information 1 each 11/25/17 19:03 Phosphorus Per Protocol MISCELLANE DAILY PRN Per Protocol Protocol Miscellaneous Information 1 each 11/25/17 19:03 Potassium Per Protocol MISCELLANE DAILY PRN Per Protocol Protocol Ondansetron HCl 4 mg 11/25/17 19:03 Zofran IVP Q6HR PRN Nausea And Vomiting Pantoprazole Sodium 40 mg 12/05/17 07:30 12/08/17 08:25 Protonix PO 40 mg AC-BRKFST [facility]E Administration Senna/Docusate Sodium 2 each 11/26/17 21:00 12/07/17 20:16 Senokot-S PO 2 each HS CAR[facility]E Administration Sodium Chloride 10 ml 11/25/17 21:00 12/08/17 11:16 Saline Flush IV 10 ml BID [facility]E Administration Objective - Vital Signs Vital signs: Vital Signs Temp 98.5 F 12/08/17 16:00 Pulse 83 12/08/17 16:00 Resp 25 H 12/08/17 16:00 BP 86/56 12/08/17 16:00 Pulse Ox 100 12/08/17 16:00 Intake & Output 12/07/17 12/08/17 12/08/17 18:59 06:59 18:59 Intake Total 305.0 422.5 905.0 Output Total 2950 1275 1650 Balance -2645.0 -852.5 -745.0 Weight 103 kg 99.1 kg Intake: IV 305.0 62.5 205.0 Lactated Ringers 1,000 ml 80 80 @ 20 mls/hr IV .Q24H [facility] Rx#:[id number] Phytonadione 2 mg In 50 Sodium Chloride 0.9% 50 ml @ 100 mls/hr IVPB ONCE STA Rx#:[id number] Piperacillin-Tazobactam 3 75.0 62.5 75.0 .375 gm In Dextrose/Water 1 50ml.bag @ 12.5 mls/hr IVPB Q8HR [facility] Rx#: [id number] Potassium Chloride 10 meq 150 In Sodium Chloride 0.9% 100 ml @ 100 mls/hr IV Q1H [facility] Rx#:[id number] Oral 360 700 Output: Urine 2950 1275 1650 Other: Voiding Method Bedpan Bedpan Bedpan ABP, PAP, CO, CI - Last Documented Arterial Blood Pressure 110/60 Pulmonary Artery Pressure 38/33 Cardiac Output 5.8 Cardiac Index 2.9 - Exam PHYSICAL EXAM: VITAL SIGNS: As above GENERAL: Sitting up in bed, respiratory effort increased, wearing BiPAP HEENT: Conjunctivae normal. eyes normal. NECK: No JVD. No thyroid enlargement. No LNs CARDIOVASCULAR: S1, S2 muffled. No murmur RESPIRATION: Breath sounds diminished in the bases. Scattered rhonchi. ABDOMEN: Soft, nontender . No guarding. no masses palpable.Bowel sounds heard. Extremities: Improving edema PSYCHIATRY:/NERVOUS SYSTEM: Alert and oriented 3, moves all 4 extremities no focal deficits, Skin: Midsternal incision open,large amount of serosanguineous drainage,with packing Microbiology 12/07/17 15:40 Chest Gram Stain - Preliminary 12/07/17 15:40 Chest Wound Culture - Preliminary 12/04/17 10:00 Urine,Voided Urine Culture - Final Escherichia coli Serratia marcescens 11/26/17 04:00 Sputum Gram Stain - Final 11/26/17 04:00 Sputum Sputum Culture - Final - Labs CBC & Chem 7: 12/08/17 04:50 12/08/17 04:50 Labs: Abnormal Lab Results - Last 24 Hours (Table) 12/07/17 12/07/17 12/08/17 Range/Units 20:06 20:56 04:50 WBC (3.8-10.6) k/uL RBC (3.80-5.40) m/uL Hgb (11.4-16.0) gm/dL Hct (34.0-46.0) % MCHC (31.0-37.0) g/dL RDW (11.5-15.5) % Neutrophils # (1.3-7.7) k/uL Lymphocytes # (1.0-4.8) k/uL PT (9.0-12.0) sec INR (<1.2) ABG pH 7.50 H (7.35-7.45) ABG pCO2 50 H (35-45) mmHg ABG pO2 70 L (83-108) mmHg ABG HCO3 38 H (21-25) mmol/L ABG Total CO2 40 H (19-24) mmol/L Chloride 93 L (98-107) mmol/L Carbon Dioxide 41 H* (22-30) mmol/L BUN 59 H (7-17) mg/dL Glucose 110 H (74-99) mg/dL POC Glucose (mg/dL) 123 H (75-99) mg/dL AST 59 H (14-36) U/L Total Protein 5.9 L (6.3-8.2) g/dL Albumin 2.6 L (3.5-5.0) g/dL 12/08/17 12/08/17 12/08/17 Range/Units 04:50 04:50 07:08 WBC 16.4 H (3.8-10.6) k/uL RBC 3.54 L (3.80-5.40) m/uL Hgb 9.3 L (11.4-16.0) gm/dL Hct 31.0 L (34.0-46.0) % MCHC 29.9 L (31.0-37.0) g/dL RDW 17.7 H (11.5-15.5) % Neutrophils # 15.4 H (1.3-7.7) k/uL Lymphocytes # 0.3 L (1.0-4.8) k/uL PT 43.3 H (9.0-12.0) sec INR 4.8 H (<1.2) ABG pH (7.35-7.45) ABG pCO2 (35-45) mmHg ABG pO2 (83-108) mmHg ABG HCO3 (21-25) mmol/L ABG Total CO2 (19-24) mmol/L Chloride (98-107) mmol/L Carbon Dioxide (22-30) mmol/L BUN (7-17) mg/dL Glucose (74-99) mg/dL POC Glucose (mg/dL) 107 H (75-99) mg/dL AST (14-36) U/L Total Protein (6.3-8.2) g/dL Albumin (3.5-5.0) g/dL 12/08/17 12/08/17 Range/Units 11:55 17:26 WBC (3.8-10.6) k/uL RBC (3.80-5.40) m/uL Hgb (11.4-16.0) gm/dL Hct (34.0-46.0) % MCHC (31.0-37.0) g/dL RDW (11.5-15.5) % Neutrophils # (1.3-7.7) k/uL Lymphocytes # (1.0-4.8) k/uL PT (9.0-12.0) sec INR (<1.2) ABG pH (7.35-7.45) ABG pCO2 (35-45) mmHg ABG pO2 (83-108) mmHg ABG HCO3 (21-25) mmol/L ABG Total CO2 (19-24) mmol/L Chloride (98-107) mmol/L Carbon Dioxide (22-30) mmol/L BUN (7-17) mg/dL Glucose (74-99) mg/dL POC Glucose (mg/dL) 120 H 136 H (75-99) mg/dL AST (14-36) U/L Total Protein (6.3-8.2) g/dL Albumin (3.5-5.0) g/dL Microbiology - Last 24 Hours (Table) 12/07/17 15:40 Gram Stain - Preliminary Chest Wound Culture - Preliminary Assessment and Plan Assessment: 1. Status post CABG with mitral valve replacement 2. Acute blood loss anemia with massive blood transfusions postoperatively, in a patient with history of GI bleed 3. Hypertension 4. Left subclavian stenosis 5. Proximal atrial fibrillation 6. Postoperative Hypoxic respiratory failure, status post vent dependent, currently requiring intermittent use of BiPAP 7. Obesity, BMI 41.6 8. S/P PICC line placement 9. 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 Acute UTI Serratia marcescens, E. coli 11. Bilateral pleural effusions, improving with diuretics. Possible aspiration pneumonia, possible fluid overload. Plan: Continue on current medication regime , amiodarone, metoprolol ,diuretics, monitoring and symptomatic treatment. Maintain antibiotics, nebulized bronchodilators, IV steroids. Sternal wound cultures pending. Aggressive pulmonary toileting, incentive spirometer reenforced.GI and DVT prophylaxis in place. The impression and plan of care has been dictated as directed. : I performed a history and examination of this patient, discussed the same with the dictator. I agree with the dictator's note ,documented as a scribe. Any additional findings or plans will be noted.
[2017-12-08] MEDS: ESCITALOPRAM 10 MG TAB PO SCH (20:33)
[2017-12-08] MEDS: SENNOSIDES-DOCUSATE SODIUM 1 EACH TAB PO SCH (20:37)
[2017-12-08 20:45] LABS: Glucose,Whole Blood 151 mg/dL (75-99)
[2017-12-09] MEDS: PIPERACILLIN-TAZOBACTAM 3.375 GM in DEXTROSE/WATER 1 50ML.BAG IVPB SCH ×3 (00:53→17:00)
[2017-12-09] MEDS: HYDROcodone/APAP 5-325MG 1 EACH TAB PO PRN ×5 (04:51→20:23)
[2017-12-09 05:28] LABS: ABG Base Excess 12.3 mmol/L; ABG HCO3 37 mmol/L (21-25); ABG Oxygen Saturation 98.2 % (94-97); ABG PCO2 57 mmHg (35-45); ABG PH 7.42 (7.35-7.45); ABG PO2 118 mmHg (83-108); ABG TCO2 39 mmol/L (19-24)
[2017-12-09 05:45] LABS: Anisocytosis Slight; Basophils % (A) 0 %; Eosinophils # (A) 0.1 k/uL (0-0.7); Eosinophils % (A) 0 %; HCT 29.5 % (34.0-46.0); HGB 8.5 gm/dL (11.4-16.0); Hypochromasia Marked; Lymphocytes # (A) 1.1 k/uL (1.0-4.8); Lymphocytes % (A) 7 %; MCH 25.6 pg (25.0-35.0); MCHC 28.8 g/dL (31.0-37.0); MCV 88.9 fL (80.0-100.0); Monocytes # (A) 0.8 k/uL (0-1.0); Monocytes % (A) 5 %; Neutrophils # (A) 13.8 k/uL (1.3-7.7); Neutrophils % (A) 87 %; Platelet Count 377 k/uL (150-450); Poikilocytosis Slight; RBC 3.32 m/uL (3.80-5.40); RDW 17.9 % (11.5-15.5); WBC 15.9 k/uL (3.8-10.6)
[2017-12-09 05:52] LABS: INR 1.8 (<1.2); Prothrombin Time 16.2 sec (9.0-12.0)
[2017-12-09 06:00] LABS: Albumin 2.5 g/dL (3.5-5.0); Calcium 8.4 mg/dL (8.4-10.2); Magnesium 2.3 mg/dL (1.6-2.3); Phosphorus 3.7 mg/dL (2.5-4.5); Potassium 3.4 mmol/L (3.5-5.1); Total Bilirubin 0.8 mg/dL (0.2-1.3); Total Protein 5.5 g/dL (6.3-8.2)
[2017-12-09] MEDS ORDERED: Potassium Replacement Protocol 1 EACH MISC MISCELLANE PRN (06:49)
[2017-12-09 07:09] LABS: Glucose,Whole Blood 85 mg/dL (75-99)
[2017-12-09] MEDS: IPRATROPIUM-ALBUTEROL 3 ML NEB INHALATION SCH ×4 (07:45→19:33)
[2017-12-09] MEDS: BUDESONIDE 1 MG/2 ML NEBU INHALATION SCH ×2 (07:45→19:33)
[2017-12-09] MEDS: PANTOPRAZOLE 40 MG TABLET PO SCH (08:11)
[2017-12-09] MEDS: AMIODARONE 200 MG TAB PO SCH ×2 (08:12→20:22)
[2017-12-09] MEDS: INSULIN ASPART 100 UNIT/ML 1 ML 10 ML VIAL SQ SCH ×4 (08:12→21:48)
[2017-12-09] MEDS: ASPIRIN 81 MG PO SCH (08:13)
[2017-12-09] MEDS: ATORVASTATIN 40 MG TAB PO SCH (08:13)
[2017-12-09] MEDS: METOPROLOL TARTRATE 50 MG TAB PO SCH ×2 (08:13→20:22)
[2017-12-09] MEDS: SODIUM CHLORIDE 0.9% 1,000 ML IV SCH (08:17)
--- NOTE | 2017-12-09 08:39 | XR ---
EXAMINATION TYPE: XR chest 1V portable DATE OF EXAM: 12/09/2017 COMPARISON: 12/08/2017 INDICATION: Post cardiac surgery TECHNIQUE: Single frontal view of the chest is obtained. FINDINGS: The heart size is enlarged. The pulmonary vasculature is normal. There is a small to moderate left pleural effusion. Left mid and lower lung field findings have impro henrietta. Sternotomy wires are present from previous cardiac surgery. There appears to be some resolution of a right basilar atelectasis. IMPRESSION: 1. Moderate left pleural effusion, improving 2. Cardiomegaly.
--- NOTE | 2017-12-09 09:55 | P.PN ---
<Yuliet Lopez M - Last Filed: 12/09/17 09:44> Subjective Progress Note Date: 12/09/17 Principal diagnosis: Severe mitral regurgitation, coronary artery disease, status post mitral valve replacement, bypass grafting 1, modified maze procedure and ligation of left atrial appendage Status post 1 vessel bypass grafting and mitral valve replacement. Progress note dated 11/29/2017 This is a 67-year-old female status post one-vessel bypass grafting and mitral valve replacement. She apparently had surgery on the . Today is postop day #3. The patient currently remains on the mechanical ventilator. Her vent settings are the assist control mode rate of 1210 of I am is 550 FiO2 50% PEEP of 5. Arterial blood gases show a PaO2 of 135 a PaCO2 of 36 and a pH of 7.47. I'm to make a few changes including bumping the rate up from 12 to 20, and decreasing the tidal volume from 550 down to 400, and dropping the FiO2 from 50- 40%. The patient may not be weaned of old low because she remains on insulin drip at 1 unit per hour, Primacor 0.2 mics per kilogram per minute, norepinephrine at 2 mics per minute, half normal saline at 30 mL an hour and propofol at 25 g kilogram per minute. Chest x-rays consistent with fluid overload but bibasilar infiltrates and small effusions and microbiology is negative. The rest of the labs medications and x-rays are all reviewed. Progress note dated 11/30/2017 This is a 67-year-old female status post one-vessel bypass grafting and mitral valve replacement. She had surgery on the . She is postop day #4. She remains on mechanical ventilator. Yesterday, her chest x-ray showed evidence of fluid overload. She did get some diuretics. Today's chest x-ray still shows evidence of fluid overload although it might be slightly improved. She's currently still on the mechanical ventilator on the assist control mode, rate of 26, tidal volume 400, PEEP of 8, FiO2 40%. The patient's arterial blood gases show a PaO2 of 94 and pH 7.46 in a PaCO2 of 41. The patient will get a daily eruption of sedation and a spontaneous breathing trial. The patient remains on norepinephrine at 3 mcg/m, propofol at 30 mics per kilogram per minute, Primacor 0.2 mics per kilogram per minute, half normal saline IV at 15 mL an hour and vital 1.2 at 60 with a goal of 60 mL an hour. The patient failed her spontaneous breathing trial yesterday very quickly, and afterwards, she became dyssynchronous with the ventilator and I had to bump up the PEEP level to 8 and increase her respiratory rate to 26. We also dropped the tidal volume down to 400. She is much more in synchrony today. Progress note dated 12/01/2017 This is a 67-year-old female who is postop day #5, status post one-vessel bypass grafting and mitral valve replacement. She also has a history of postoperative respiratory failure with failure to wean. She was extubated yesterday though. Chest x-ray has evidence of fluid overload which actually is improved. In addition, the patient had acute blood loss anemia requiring blood transfusion postsurgically, hypertension severe mitral regurgitation left subclavian stenosis paroxysmal atrial fibrillation GI bleed and obesity. Yesterday, post extubation we gave the patient 1 shot of Solu-Medrol 60 mg IV push and also put her on BiPAP at 14/5 and 40%. Chest x-ray does show improvement. Today her hemoglobin is below 7 and she'll receive 1 unit of blood followed by some Lasix IV. In addition, I may add on some IV site Medrol and a smaller dose than normal and also some Pulmicort 1 mg twice a day. Progress note dated 12/02/2017 67-year-old female who is postop day #6 status post single-vessel bypass grafting and mitral valve replacement. The patient has been doing very well the last day and a half to 2 days. She has a history of postoperative respiratory failure and initially, failure to wean. She was extubated 2 days ago. She has had to use of BiPAP on and off since that time. She did receive 1 unit of PRBCs yesterday followed by some Lasix 40 mg IV push. Her chest x- ray my opinion still so-so some fluid overload with a small pool of pleural effusion. Other than that, the patient seemed be doing relatively well. She has a history of hypertension severe mitral regurgitation blood loss anemia following surgery left subclavian stenosis paroxysmal atrial fibrillation GI bleed and obesity. This morning, she'll come off the BiPAP and go back to nasal O2. She prefers a nasal O2 over the BiPAP device. She may have had an episode of aspiration last night. Speech pathology was consulted. In addition , I did check for a DVT in the right upper extremity and the Doppler was negative. Progress note dated 12/03/2017 67-year-old female postop day #7, status post single-vessel bypass grafting and mitral valve replacement. The patient has been doing relatively well although this morning she was a bit more short of breath. Chest x-ray does show some fluid overload. She's been on and off of BiPAP. This morning she was on O2 nasal cannula at 3 L. The cardiothoracic practitioner thought she was a bit more short of breath I went and saw her. I looked at her chest x-ray. We asked her to go back on BiPAP at 14 and 5 and 40% and we also gave her Lasix 60 mg IV push. She seemed be doing a lot better now. She's not receiving any IV fluids. Chest x-ray does show fluid overload. Again the Lasix was given this morning. She was a bit to This morning. Breathing about 25 times a minute. No swapnil distress. In addition, she has a history of hypertension severe mitral regurgitation blood loss anemia following her open heart surgery, left subclavian artery stenosis paroxysmal atrial fibrillation GI bleed and obesity. Progress note dated 12/04/2017 67-year-old female, postop day #8, status post single-vessel bypass grafting and mitral valve replacement. The patient's overall situation is been reasonable. She seemed to do do better while she is on BiPAP therapy. When she is a bit more short of breath, she does poorly when she's not on BiPAP. Chest x-ray shows some fluid overload. She has some cephalization to the upper lobes. In addition, she is either consolidation atelectasis or infiltrates in the lower lobes. In addition, probably has some pleural effusions bilaterally. Currently she is on 7 L high flow. She's not receiving any IV fluids. When she is on BiPAP, she is on settings of 14 and 5 and 40%. She did receive some Lopressor for atrial fibrillation with RVR. Cardiothoracic surgery ask about antibiotics for possible pneumonia. Is not unreasonable to add some antibiotics to her regimen. She may have some pneumonia hiding in the lung spaces bilaterally. She isn't producing any phlegm. There's been no fever or chills. Other than that, she is doing reasonably well. Labs x-rays a medications are all reviewed. Personal dated 12/05/2017 The patient is seen again today in follow-up in the intensive care unit. This is postoperative day #9. She remains quite BiPAP dependent. Settings 14/5 at 40% FiO2. She is quite short of breath with any minimal exertion. Her chest x- ray continues to show evidence of fluid volume overload with bilateral effusions right greater than left. She is status post 11 units of packed red blood cells, 4 units of fresh frozen plasma, 2 units of platelets and 1 of pheresis platelets, 20 units 20 cryoprecipitate and remains in a significant positive balance overall. He is also had ongoing issues with atrial fibrillation/flutter with rapid ventricular rates. White count 27.5. Hemoglobin 9.1. Platelet count is 287. INR 1.6. Creatinine 0.73. She remains on bronchodilators, Pulmicort inhalations, IV Solu-Medrol. Antibiotics in the form of Zosyn. She is on amiodarone, digoxin, beta blockers and warfarin. On 12/06/2017 patient seen again in the intensive care unit, she remains on BiPAP with pressures of 14/5, and FiO2 40%. O2 sat is around 97%. She is tolerating it well. She remains in A. fib with a rate of 110 to 115 BPM, hemodynamically stable. Lung sounds reveal diminished lung sounds bilaterally. Chest x-ray from this morning was reviewed and showed prominent interstitium and central vascularity with bibasilar increased density compatible with bilateral pleural effusions. Patient appears to be fairly comfortable at rest, oxygenating well on FiO2 40%. Her INR today is 2.2, she is awaiting cardioversion on 12/07/2017. After discussion with cardiothoracic surgery, he was decided to wait with thoracentesis until after the cardioversion, because the patient is currently sufficiently anticoagulated for the procedure. We'll attempt to diurese with Lasix and Zaroxolyn. Patient remains on oral amiodarone , digoxin for rate control. Remains on Coumadin anticoagulant coagulation. Zosyn, IV Solu-Medrol 31 g every 8 hours, Pulmicort, and DuoNeb nebulized treatments. On 12/07/2017 patient is seen post synchronized cardioversion for atrial fibrillation with RVR. Patient was successfully cardioverted with 360 J 1. Currently in sinus rhythm with a rate of 87 BPM. Hemodynamically stable, BP is 10/07/1955, she remains on BiPAP support, with pressures of 14/5, and FiO2 of 40 %. She is not on any maintenance drips, IV LR infusing at 20 ML per hour. Lung sounds are positive for scattered rhonchi, good air entry bilaterally, no wheezes noted. Today's chest x-ray shows stable diffuse bilateral areas of infiltrate and pleural effusions. Patient has been diuresed with IV Lasix of 40 mg every 12 hours in addition to Zaroxolyn 5 mg daily. Today's lab work shows WBC trending down, down to 17.0 from 22.6, hemoglobin is stable at 9.4, sodium is 138, potassium is 3.8, chloride is 95, CO2 is 40, BUN is 54, creatinine is 0.80. Urine culture is positive for E. coli and Serratia marcescens both of which are sensitive to Zosyn, which the patient has been on since 12/04/2017. Patient continues on IV steroids, DuoNeb, Pulmicort. She remains anticoagulated with warfarin, INR today is at 3.8. On 12/08/2017 patient seen again in the intensive care unit, currently off the BiPAP on 6 L per nasal cannula eating breakfast. Her BiPAP support for most of the day yesterday and at night. Still becomes quite dyspneic with any exertion , even getting on and off the bedpan. Lung sounds are diminished over left lower lobe, there are some scattered rhonchi bilaterally. Today's chest x-ray shows persistence of bibasilar densities, prominence of central vascularity, and blunting of the left costophrenic angle, variable with left pleural effusion. There is a area of opacity in the left lower lobe that could possibly represent atelectasis, versus pneumonia versus pulmonary edema. There is little improvement on the chest x-ray or level of dyspnea despite the intensive diuresis. Patient is in -3497 mL fluid balance over the last 24 hours. Bilateral lower extremity and upper extremity edema has improved. Her weight is down almost 4 kg in the last 24 hours. White count continues to trend down, down to 16.4 on today's lab work, hemoglobin is 9.3, INR is 4.8. Patient received 2 g of vitamin K IV this morning. Patient continues on Zosyn, for evidence of E. coli and Serratia marcescens in the urine culture that are both sensitive to Zosyn. Midsternal incision has started to open, and is draining copious amount of serosanguineous drainage in the lower portion of the midsternal incision. The wound is packed per CT surgery, and covered with dressings. Patient was cardioverted successfully yesterday, she remains in sinus rhythm with a controlled rate. She remains afebrile. On 12/09/2017 patient seen in follow-up. She is currently on 4 L per nasal cannula, with O2 sat at 96%. Remains mostly BiPAP dependent with pressures 14/5 , and FiO2 of 60%. Becomes fatigued and dyspneic, and can only tolerate the nasal cannula trials for meals and short periods of time during the day. Incentive spirometer effort is 750. Chest x-ray today shows improvement in the appearance of left lower lobe opacity, consistent with left pleural effusion. CT from 12/08/2017 showed sternal dehiscence, 2.7 cm wide sternal defect containing mixed air, fluid and packing material. There was moderate to large pericardial effusion predominantly along the left side of the heart. There was no significant right atrial dilatation to clearly indicate tamponade physiology. Moderate left pleural effusion with adjacent complete left lower lobe are and inferior lingular collapse. Yesterday patient was developing volume contraction alkalosis secondary to intensive diuresis. Her diuretics have been discontinued, patient still remains in negative fluid balance, -1300 over the last 24 hours. Today's blood gases show improvement, pH is 7.42, pCO2 57, pO2 of 118, this was done and FiO2 of 50%. Patient's white count is 15.9, hemoglobin is 8.5, INR is 1.8, sodium is 138, potassium is 3.4, CO2 is 39, BUN is 53, and creatinine is 1.10. Patient continues on Zosyn, urine culture from 12/04/2017 showed E. coli and Serratia marcescens, sternal wound culture is positive gram-negative bacilli. Patient remains in normal sinus rhythm at a rate of 70 BPM. Remains hemodynamically stable. Denies any acute distress. She is tolerating oral intake, appetite is fair. Patient is nonoliguric. Lung sounds are positive for a few scattered rales over left upper lobe, diminished at bilateral bases. Objective - Vital Signs Vital signs: Vital Signs Temp 98.3 F 12/09/17 08:00 Pulse 79 12/09/17 08:00 Resp 20 12/09/17 08:00 BP 116/54 12/09/17 08:00 Pulse Ox 100 12/09/17 08:00 Intake & Output 12/08/17 12/09/17 12/09/17 18:59 06:59 18:59 Intake Total 930.0 50.0 35.0 Output Total 1800 525 100 Balance -870.0 -475.0 -65.0 Weight 98.2 kg Intake: IV 230.0 50.0 35.0 Lactated Ringers 1,000 ml 80 10 @ 20 mls/hr IV .Q24H [facility] Rx#:[id number] Phytonadione 2 mg In 50 Sodium Chloride 0.9% 50 ml @ 100 mls/hr IVPB ONCE [facility] Rx#:[id number] Piperacillin-Tazobactam 3 100.0 50.0 25.0 .375 gm In Dextrose/Water 1 50ml.bag @ 12.5 mls/hr IVPB Q8HR [facility] Rx#: [id number] Oral 700 Output: Urine 1800 525 100 Other: Voiding Method Bedpan ABP, PAP, CO, CI - Last Documented Arterial Blood Pressure 110/60 Pulmonary Artery Pressure 38/33 Cardiac Output 5.8 Cardiac Index 2.9 - Exam GENERAL EXAM: Alert, pleasant, 67-year-old white female, in no apparent distress , currently on 4 L per high flow nasal cannula, wears BiPAP most of the time HEAD: Normocephalic. EYES: Normal reaction of pupils, equal size. NOSE: Clear with pink turbinates. THROAT: No erythema or exudates. NECK: No masses, no JVD. CHEST: No chest wall deformity. Midsternal incision has started to open, packed in the distal portion of the incision, there is a large amount of serosanguineous drainage at the distal end of the incision. The incision is covered with the dressing. Heart Hugger is in place LUNGS: Equal air entry with scattered rales over left upper lobe, diminished over left lower lobe CVS: S1 and S2, irregular with no audible murmur, irregular rhythm. ABDOMEN: No hepatosplenomegaly, normal bowel sounds, no guarding or rigidity. SPINE: No scoliosis or deformity SKIN: No rashes CENTRAL NERVOUS SYSTEM: No focal deficits, tone is normal in all 4 extremities. EXTREMITIES: There is no peripheral edema. No clubbing, no cyanosis. Peripheral pulses are intact. Left-sided PICC line present - Labs CBC & Chem 7: 12/09/17 05:00 12/09/17 05:00 Labs: Abnormal Lab Results - Last 24 Hours (Table) 12/08/17 12/08/17 12/08/17 Range/Units 11:55 17:26 20:43 WBC (3.8-10.6) k/uL RBC (3.80-5.40) m/uL Hgb (11.4-16.0) gm/dL Hct (34.0-46.0) % MCHC (31.0-37.0) g/dL RDW (11.5-15.5) % Neutrophils # (1.3-7.7) k/uL PT (9.0-12.0) sec INR (<1.2) ABG pCO2 (35-45) mmHg ABG pO2 (83-108) mmHg ABG HCO3 (21-25) mmol/L ABG Total CO2 (19-24) mmol/L ABG O2 Saturation (94-97) % Potassium (3.5-5.1) mmol/L Chloride (98-107) mmol/L Carbon Dioxide (22-30) mmol/L BUN (7-17) mg/dL Creatinine (0.52-1.04) mg/dL POC Glucose (mg/dL) 120 H 136 H 151 H (75-99) mg/dL AST (14-36) U/L Total Protein (6.3-8.2) g/dL Albumin (3.5-5.0) g/dL 12/09/17 12/09/17 12/09/17 Range/Units 05:00 05:00 05:00 WBC 15.9 H (3.8-10.6) k/uL RBC 3.32 L (3.80-5.40) m/uL Hgb 8.5 L (11.4-16.0) gm/dL Hct 29.5 L (34.0-46.0) % MCHC 28.8 L (31.0-37.0) g/dL RDW 17.9 H (11.5-15.5) % Neutrophils # 13.8 H (1.3-7.7) k/uL PT 16.2 H (9.0-12.0) sec INR 1.8 H (<1.2) ABG pCO2 (35-45) mmHg ABG pO2 (83-108) mmHg ABG HCO3 (21-25) mmol/L ABG Total CO2 (19-24) mmol/L ABG O2 Saturation (94-97) % Potassium 3.4 L (3.5-5.1) mmol/L Chloride 92 L (98-107) mmol/L Carbon Dioxide 39 H (22-30) mmol/L BUN 53 H (7-17) mg/dL Creatinine 1.10 H (0.52-1.04) mg/dL POC Glucose (mg/dL) (75-99) mg/dL AST 52 H (14-36) U/L Total Protein 5.5 L (6.3-8.2) g/dL Albumin 2.5 L (3.5-5.0) g/dL 12/09/17 Range/Units 05:26 WBC (3.8-10.6) k/uL RBC (3.80-5.40) m/uL Hgb (11.4-16.0) gm/dL Hct (34.0-46.0) % MCHC (31.0-37.0) g/dL RDW (11.5-15.5) % Neutrophils # (1.3-7.7) k/uL PT (9.0-12.0) sec INR (<1.2) ABG pCO2 57 H (35-45) mmHg ABG pO2 118 H (83-108) mmHg ABG HCO3 37 H (21-25) mmol/L ABG Total CO2 39 H (19-24) mmol/L ABG O2 Saturation 98.2 H (94-97) % Potassium (3.5-5.1) mmol/L Chloride (98-107) mmol/L Carbon Dioxide (22-30) mmol/L BUN (7-17) mg/dL Creatinine (0.52-1.04) mg/dL POC Glucose (mg/dL) (75-99) mg/dL AST (14-36) U/L Total Protein (6.3-8.2) g/dL Albumin (3.5-5.0) g/dL Microbiology - Last 24 Hours (Table) 12/07/17 15:40 Gram Stain - Preliminary Chest Wound Culture - Preliminary Gram Neg Bacilli Assessment and Plan Plan: Assessment: #1. Severe mitral valve regurgitation, status post mitral valve replacement, with Maze procedure, left atrial appendage exclusion, and one-vessel bypass, postop day 13 #2. Postoperative respiratory failure with failure to wean, with extubation occurring on 11/30/2017, currently on BiPAP support with pressures 14 over 4, FiO2 60% #3. Chest x-ray evidence of fluid overload, bilateral pleural effusions right greater than left, patient has been intensively diuresed, and on today's chest x -ray there is improvement in the appearance of left pleural effusion #4. Metabolic alkalosis most likely related to volume contraction alkalosis secondary to IV diuresis, patient received Diamox, and on today's blood gas there is improvement in alkalosis #5. Midsternal wound dehiscence, midsternal wound culture is positive for gram- negative bacilli, currently on Zosyn #5. acute urinary tract infection, urine culture positive for E. coli and Serratia marcescens both of which are sensitive to Zosyn, which the patient is currently on #6. Acute blood loss anemia requiring blood transfusion, today's hemoglobin is 9.4 #7. History of hypertension #8. History of severe mitral regurgitation #9. History of left subclavian stenosis #10. Paroxysmal atrial fibrillation, status post successful cardioversion, patient remains in normal sinus rhythm #11. History of GI bleed #12. Obesity #13. Possible aspiration with aspiration pneumonia, currently on Zosyn. Plan: Continue current antibiotic coverage, continue BiPAP support. Patient remains in negative fluid balance, Lasix and Zaroxolyn were discontinued yesterday in view of patient developing volume contraction alkalosis. Today's blood gases show improvement in the degree of metabolic alkalosis. 2 doses of Diamox were given yesterday. Echocardiogram showed EF between 50-55%, and a small generalized pericardial effusion. Continue incentive spirometry, continue current antibiotic coverage. Continue monitoring urine output, labs, daily chest x-rays. I performed a history & physical examination of the patient and discussed their management with my nurse practitioner, Yuliet Lopez. I reviewed the nurse practitioner's note and agree with the documented findings and plan of care. Lung sounds are positive for scattered rhonchi bilaterally, with scattered rales over left upper lobe, and diminished lung sounds at bilateral bases. The findings and the impression was discussed with the patient. I attest to the documentation by the nurse practitioner. Time with Patient: Greater than 30 <Cass Ledbetter - Last Filed: 12/09/17 15:55> Objective - Vital Signs Vital signs: Vital Signs Temp 97.4 F L 12/09/17 12:00 Pulse 85 12/09/17 15:43 Resp 31 H 12/09/17 14:00 BP 111/59 12/09/17 14:00 Pulse Ox 94 L 12/09/17 14:00 Intake & Output 12/08/17 12/09/17 12/09/17 18:59 06:59 18:59 Intake Total 930.0 50.0 405.0 Output Total 1800 525 200 Balance -870.0 -475.0 205.0 Weight 98.2 kg 98.2 kg Intake: IV 230.0 50.0 85.0 Lactated Ringers 1,000 ml 80 10 @ 20 mls/hr IV .Q24H [facility] Rx#:[id number] Phytonadione 2 mg In 50 Sodium Chloride 0.9% 50 ml @ 100 mls/hr IVPB ONCE [facility] Rx#:[id number] Piperacillin-Tazobactam 3 100.0 50.0 75.0 .375 gm In Dextrose/Water 1 50ml.bag @ 12.5 mls/hr IVPB Q8HR [facility] Rx#: [id number] Intake, IV Titration 80 Amount Sodium Chloride 0.9% 1, 80 000 ml @ 20 mls/hr IV . Q24H [facility] Rx#:[id number] Oral 700 240 Output: Urine 1800 525 200 Other: Voiding Method Bedpan # Voids 2 # Bowel Movements 1 ABP, PAP, CO, CI - Last Documented Arterial Blood Pressure 110/60 Pulmonary Artery Pressure 38/33 Cardiac Output 5.8 Cardiac Index 2.9 - Labs CBC & Chem 7: 12/09/17 05:00 12/09/17 05:00 Labs: Abnormal Lab Results - Last 24 Hours (Table) 12/08/17 12/08/17 12/09/17 Range/Units 17:26 20:43 05:00 WBC 15.9 H (3.8-10.6) k/uL RBC 3.32 L (3.80-5.40) m/uL Hgb 8.5 L (11.4-16.0) gm/dL Hct 29.5 L (34.0-46.0) % MCHC 28.8 L (31.0-37.0) g/dL RDW 17.9 H (11.5-15.5) % Neutrophils # 13.8 H (1.3-7.7) k/uL PT (9.0-12.0) sec INR (<1.2) ABG pCO2 (35-45) mmHg ABG pO2 (83-108) mmHg ABG HCO3 (21-25) mmol/L ABG Total CO2 (19-24) mmol/L ABG O2 Saturation (94-97) % Potassium (3.5-5.1) mmol/L Chloride (98-107) mmol/L Carbon Dioxide (22-30) mmol/L BUN (7-17) mg/dL Creatinine (0.52-1.04) mg/dL POC Glucose (mg/dL) 136 H 151 H (75-99) mg/dL AST (14-36) U/L Total Protein (6.3-8.2) g/dL Albumin (3.5-5.0) g/dL 12/09/17 12/09/17 12/09/17 Range/Units 05:00 05:00 05:26 WBC (3.8-10.6) k/uL RBC (3.80-5.40) m/uL Hgb (11.4-16.0) gm/dL Hct (34.0-46.0) % MCHC (31.0-37.0) g/dL RDW (11.5-15.5) % Neutrophils # (1.3-7.7) k/uL PT 16.2 H (9.0-12.0) sec INR 1.8 H (<1.2) ABG pCO2 57 H (35-45) mmHg ABG pO2 118 H (83-108) mmHg ABG HCO3 37 H (21-25) mmol/L ABG Total CO2 39 H (19-24) mmol/L ABG O2 Saturation 98.2 H (94-97) % Potassium 3.4 L (3.5-5.1) mmol/L Chloride 92 L (98-107) mmol/L Carbon Dioxide 39 H (22-30) mmol/L BUN 53 H (7-17) mg/dL Creatinine 1.10 H (0.52-1.04) mg/dL POC Glucose (mg/dL) (75-99) mg/dL AST 52 H (14-36) U/L Total Protein 5.5 L (6.3-8.2) g/dL Albumin 2.5 L (3.5-5.0) g/dL Microbiology - Last 24 Hours (Table) 12/07/17 15:40 Gram Stain - Preliminary Chest Wound Culture - Preliminary Gram Neg Bacilli Assessment and Plan Plan: This is a joint evaluation was done along with the nurse practitioner. Patient is being diuresis. The patient is tolerating BiPAP for now. The patient is also transitioned to oxygen by nasal cannula at 5 L. The chest wound is draining and he has this history and there is some gram-negative bacilli growing and the patient is currently on IV Zosyn. She is not acting any septic and there is no evidence of any mediastinitis. The CAT scan of the chest also showed some atelectatic changes small effusion the left lung base. For the most part the patient is doing well. Diuretics have been discontinued. Metabolic alkalosis is also improving as the patient achieved with Zaroxolyn. INR today is at 1.8 and we'll hold off anticoagulation for now. We'll continue to follow and the patient will be kept in ICU.
--- NOTE | 2017-12-09 10:34 | P.PN ---
Subjective Progress Note Date: 12/09/17 Principal diagnosis: Severe mitral regurgitation. Coronary artery disease. Paroxysmal atrial fibrillation on Coumadin for anticoagulation. Recent hospitalization for lower GI bleed, duodenal ulcer. History of left subclavian stenosis with stent placement 2014 with recent discovery of critical re-in-stent stenosis. Previous tobacco dependence with preoperative FEV1 60% of predicted. Hypertension. Hyperlipidemia. Gallbladder disease. Family history of heart disease. Preoperative nasal swab positive for MRSA. Preoperative anemia. POD #14 mitral valve replacement using a 25 mm Ribera bioprosthetic tissue valve. Coronary artery bypass grafting 1, reverse saphenous vein graft to the obtuse marginal artery. Maze procedure. Endoscopic harvesting of the right greater saphenous vein. Epi-aortic ultrasound. Intraoperative transesophageal echocardiogram. Ligation of the left atrial appendage using a 40 mm AtriClip. Intraoperative left ventricular wall tear, an unexpected but potential outcome of surgery Acute blood loss anemia, and expected outcome given patient's preoperative anemia and intraoperative bleeding. Postoperative prolonged mechanical ventilation secondary to hemodynamic instability, and unexpected but potential outcome of surgery given the extensive nature of her perioperative course Sternal incision dehiscence, a possible outcome of surgery given patient's obesity, nutrition status, debility The patient's currently sitting up in bed in no acute distress although she does become dyspneic with any activity and does take quite some time to recover. Does state that she is feeling better this morning. Sternal incision dressing continues to be changed and repacked several times daily. Objective - Vital Signs Vital signs: Vital Signs Temp 98.3 F 12/09/17 08:00 Pulse 77 12/09/17 09:00 Resp 16 12/09/17 09:00 BP 113/57 12/09/17 09:00 Pulse Ox 100 12/09/17 09:00 Intake & Output 12/08/17 12/09/17 12/09/17 18:59 06:59 18:59 Intake Total 930.0 50.0 35.0 Output Total 1800 525 100 Balance -870.0 -475.0 -65.0 Weight 98.2 kg Intake: IV 230.0 50.0 35.0 Lactated Ringers 1,000 ml 80 10 @ 20 mls/hr IV .Q24H [facility] Rx#:[id number] Phytonadione 2 mg In 50 Sodium Chloride 0.9% 50 ml @ 100 mls/hr IVPB ONCE [facility] Rx#:[id number] Piperacillin-Tazobactam 3 100.0 50.0 25.0 .375 gm In Dextrose/Water 1 50ml.bag @ 12.5 mls/hr IVPB Q8HR [facility] Rx#: [id number] Oral 700 Output: Urine 1800 525 100 Other: Voiding Method Bedpan ABP, PAP, CO, CI - Last Documented Arterial Blood Pressure 110/60 Pulmonary Artery Pressure 38/33 Cardiac Output 5.8 Cardiac Index 2.9 - Constitutional General appearance: Present: cooperative, no acute distress, obese - Respiratory Details: Lungs sounds diminished bilaterally, left greater than right. Respirations currently even and nonlabored while on BiPAP, does become tachypneic and short of breath with activity. Only able to achieve 500 mL on her incentive spirometry. - Cardiovascular Details: S1, S2 present. Regular rate and rhythm, sinus rhythm on telemetry. Sternum is non-stable with significant movement, especially when coughing. Palpable peripheral pulses bilaterally. Bilateral lower extremity edema present. No calf pain or tenderness noted. Antiembolism stockings, SCDs present. Heart hugger in place with patient demonstrating appropriate use. - Gastrointestinal Gastrointestinal Comment(s): Abdomen soft, nontender, nondistended. Active bowel sounds 4 quadrants. Tolerating minimal diet. No bowel movement since December 05. - Genitourinary Genitourinary Comment(s): Continues to void clear, yellow urine. Urine collection device in place. - Integumentary Integumentary Comment(s): Skin is warm and dry. Sternal incision dehiscence is present with significant reddish drainage. Packed and redressed several times a day. In the small of her back she does have a stage II to III ulcer with slough present. - Neurologic Neurologic: Present: CNII-XII intact - Musculoskeletal Musculoskeletal: Present: generalized weakness - Psychiatric Psychiatric: Present: A&O x's 3, appropriate affect, intact judgment & insight - Allied health notes Allied health notes reviewed: nursing - Labs CBC & Chem 7: 12/09/17 05:00 12/09/17 05:00 Labs: Abnormal Lab Results - Last 24 Hours (Table) 12/08/17 12/08/17 12/08/17 Range/Units 11:55 17:26 20:43 WBC (3.8-10.6) k/uL RBC (3.80-5.40) m/uL Hgb (11.4-16.0) gm/dL Hct (34.0-46.0) % MCHC (31.0-37.0) g/dL RDW (11.5-15.5) % Neutrophils # (1.3-7.7) k/uL PT (9.0-12.0) sec INR (<1.2) ABG pCO2 (35-45) mmHg ABG pO2 (83-108) mmHg ABG HCO3 (21-25) mmol/L ABG Total CO2 (19-24) mmol/L ABG O2 Saturation (94-97) % Potassium (3.5-5.1) mmol/L Chloride (98-107) mmol/L Carbon Dioxide (22-30) mmol/L BUN (7-17) mg/dL Creatinine (0.52-1.04) mg/dL POC Glucose (mg/dL) 120 H 136 H 151 H (75-99) mg/dL AST (14-36) U/L Total Protein (6.3-8.2) g/dL Albumin (3.5-5.0) g/dL 12/09/17 12/09/17 12/09/17 Range/Units 05:00 05:00 05:00 WBC 15.9 H (3.8-10.6) k/uL RBC 3.32 L (3.80-5.40) m/uL Hgb 8.5 L (11.4-16.0) gm/dL Hct 29.5 L (34.0-46.0) % MCHC 28.8 L (31.0-37.0) g/dL RDW 17.9 H (11.5-15.5) % Neutrophils # 13.8 H (1.3-7.7) k/uL PT 16.2 H (9.0-12.0) sec INR 1.8 H (<1.2) ABG pCO2 (35-45) mmHg ABG pO2 (83-108) mmHg ABG HCO3 (21-25) mmol/L ABG Total CO2 (19-24) mmol/L ABG O2 Saturation (94-97) % Potassium 3.4 L (3.5-5.1) mmol/L Chloride 92 L (98-107) mmol/L Carbon Dioxide 39 H (22-30) mmol/L BUN 53 H (7-17) mg/dL Creatinine 1.10 H (0.52-1.04) mg/dL POC Glucose (mg/dL) (75-99) mg/dL AST 52 H (14-36) U/L Total Protein 5.5 L (6.3-8.2) g/dL Albumin 2.5 L (3.5-5.0) g/dL 12/09/17 Range/Units 05:26 WBC (3.8-10.6) k/uL RBC (3.80-5.40) m/uL Hgb (11.4-16.0) gm/dL Hct (34.0-46.0) % MCHC (31.0-37.0) g/dL RDW (11.5-15.5) % Neutrophils # (1.3-7.7) k/uL PT (9.0-12.0) sec INR (<1.2) ABG pCO2 57 H (35-45) mmHg ABG pO2 118 H (83-108) mmHg ABG HCO3 37 H (21-25) mmol/L ABG Total CO2 39 H (19-24) mmol/L ABG O2 Saturation 98.2 H (94-97) % Potassium (3.5-5.1) mmol/L Chloride (98-107) mmol/L Carbon Dioxide (22-30) mmol/L BUN (7-17) mg/dL Creatinine (0.52-1.04) mg/dL POC Glucose (mg/dL) (75-99) mg/dL AST (14-36) U/L Total Protein (6.3-8.2) g/dL Albumin (3.5-5.0) g/dL Microbiology - Last 24 Hours (Table) 12/07/17 15:40 Gram Stain - Preliminary Chest Wound Culture - Preliminary Gram Neg Bacilli - Imaging and Cardiology Chest x-ray: report reviewed, image reviewed CT scan - chest: report reviewed, image reviewed Assessment and Plan (1) Acute blood loss anemia Current Visit: Yes Status: Acute Code(s): D62 - ACUTE POSTHEMORRHAGIC ANEMIA SNOMED Code(s): 224744393 (2) CAD (coronary artery disease) Current Visit: Yes Status: Chronic Code(s): I25.10 - ATHSCL HEART DISEASE OF [place] CORONARY ARTERY W/O ANG PCTRS SNOMED Code(s): 65801215 (3) Hyperlipidemia Current Visit: Yes Status: Chronic Code(s): E78.5 - HYPERLIPIDEMIA, UNSPECIFIED SNOMED Code(s): 02603110 (4) Hypertension Current Visit: Yes Status: Chronic Code(s): I10 - ESSENTIAL (PRIMARY) HYPERTENSION SNOMED Code(s): 94245752 (5) Severe mitral regurgitation Current Visit: Yes Status: Chronic Code(s): I34.0 - NONRHEUMATIC MITRAL ( VALVE) INSUFFICIENCY SNOMED Code(s): 09775655 (6) Stenosis of left subclavian artery Current Visit: Yes Status: Chronic Code(s): I77.1 - STRICTURE OF ARTERY SNOMED Code(s): 068343255 (7) Paroxysmal atrial fibrillation Current Visit: No Status: Resolved Code(s): I48.0 - PAROXYSMAL ATRIAL FIBRILLATION SNOMED Code(s): 709892179 (8) History of GI bleed Current Visit: No Status: Resolved Code(s): Z87.19 - PERSONAL HISTORY OF OTHER DISEASES OF THE DIGESTIVE SYSTEM SNOMED Code(s): 060761828 (9) Family history of coronary artery disease Current Visit: Yes Status: Chronic Code(s): Z82.49 - FAMILY HX OF ISCHEM HEART DIS AND OTH DIS OF THE CIRC SYS SNOMED Code(s): 233172768 Plan: 1. Continue baby aspirin, statin, beta krunal. Will increase beta krunal therapy as tolerated. 2. Continue amiodarone for history of paroxysmal atrial fibrillation on home amiodarone. Patient was cardioverted to normal sinus Wednesday. 3. Wean O2 as tolerated. BiPAP management per pulmonology. Encourage incentive spirometry use 10x every hour. Lasix discontinued. 4. Urine culture positive for E. coli and Serratia, both of which are sensitive to Zosyn. Patient has remained afebrile. Continue Zosyn. 5. Sternal incision cultured, pulmonary results demonstrated gram-negative bacilli. We will repack and redress 2-[address] Olivera consulted. 6. Will monitor labs, chest x-rays. 7. Bronchodilators, steroids per pulmonology. 8. Daily Coumadin dosing per PT and INR. Will hold Coumadin for now in case the patient needs further invasive procedures. Cardiothoracic surgery will manage dosing while she is inpatient, outpatient management to be done by cardiology. 9. GI/DVT prophylaxis. 10. Increase activity as tolerated. PT/OT/cardiac rehab following. 11. Keep patient in the ICU for close monitoring. 12. More recommendations as patient progresses. Time with Patient: Greater than 30
--- NOTE | 2017-12-09 10:38 | P.PN ---
Subjective Progress Note Date: 12/09/17 Principal diagnosis: Severe MR, CAD; s/p mitral valve replacement, single vessel CABG, modified maze and ligation of left atrial appendage The pleasant 67-year-old female patient status post MVR, CABG 1, modified maze and ligation of left atrial appendage. She underwent cardioversion 2 days ago and is maintaining sinus rhythm. She is on amiodarone 200 mg by mouth twice a day. She has had some wound dehiscence and has developed some pericardial effusion with a limited echocardiogram showing small generalized pericardial effusion done yesterday. Also has moderate left pleural effusion. Chest x-ray from this morning shows moderate left pleural effusion that is improving. She remains short of breath while on nasal cannula oxygen for short periods of time during meals. She has mostly maintaining on a CPAP. Objective - Vital Signs Vital signs: Vital Signs Temp 98.3 F 12/09/17 08:00 Pulse 77 12/09/17 09:00 Resp 16 12/09/17 09:00 BP 113/57 12/09/17 09:00 Pulse Ox 100 12/09/17 09:00 Intake & Output 12/08/17 12/09/17 12/09/17 18:59 06:59 18:59 Intake Total 930.0 50.0 35.0 Output Total 1800 525 100 Balance -870.0 -475.0 -65.0 Weight 98.2 kg Intake: IV 230.0 50.0 35.0 Lactated Ringers 1,000 ml 80 10 @ 20 mls/hr IV .Q24H [facility] Rx#:[id number] Phytonadione 2 mg In 50 Sodium Chloride 0.9% 50 ml @ 100 mls/hr IVPB ONCE [facility] Rx#:[id number] Piperacillin-Tazobactam 3 100.0 50.0 25.0 .375 gm In Dextrose/Water 1 50ml.bag @ 12.5 mls/hr IVPB Q8HR [facility] Rx#: [id number] Oral 700 Output: Urine 1800 525 100 Other: Voiding Method Bedpan ABP, PAP, CO, CI - Last Documented Arterial Blood Pressure 110/60 Pulmonary Artery Pressure 38/33 Cardiac Output 5.8 Cardiac Index 2.9 - Exam PHYSICAL EXAMINATION: HEENT: Head is atraumatic, normocephalic. Pupils equal, round. Neck is supple. There is no elevated jugular venous pressure. HEART EXAMINATION: Heart sounds regular, S1 and S2 soft. CHEST EXAMINATION: Lungs diminished air entry bilaterally. No chest wall tenderness is noted on palpation or with deep breathing. ABDOMEN: Soft, obese, nontender. Bowel sounds are heard. No organomegaly noted. EXTREMITIES: 1+ peripheral pulses with evidence of mild peripheral edema and no calf tenderness noted. NEUROLOGIC patient is awake, alert and oriented x3. . - Labs CBC & Chem 7: 12/09/17 05:00 12/09/17 05:00 Labs: Abnormal Lab Results - Last 24 Hours (Table) 12/08/17 12/08/17 12/08/17 Range/Units 11:55 17:26 20:43 WBC (3.8-10.6) k/uL RBC (3.80-5.40) m/uL Hgb (11.4-16.0) gm/dL Hct (34.0-46.0) % MCHC (31.0-37.0) g/dL RDW (11.5-15.5) % Neutrophils # (1.3-7.7) k/uL PT (9.0-12.0) sec INR (<1.2) ABG pCO2 (35-45) mmHg ABG pO2 (83-108) mmHg ABG HCO3 (21-25) mmol/L ABG Total CO2 (19-24) mmol/L ABG O2 Saturation (94-97) % Potassium (3.5-5.1) mmol/L Chloride (98-107) mmol/L Carbon Dioxide (22-30) mmol/L BUN (7-17) mg/dL Creatinine (0.52-1.04) mg/dL POC Glucose (mg/dL) 120 H 136 H 151 H (75-99) mg/dL AST (14-36) U/L Total Protein (6.3-8.2) g/dL Albumin (3.5-5.0) g/dL 12/09/17 12/09/17 12/09/17 Range/Units 05:00 05:00 05:00 WBC 15.9 H (3.8-10.6) k/uL RBC 3.32 L (3.80-5.40) m/uL Hgb 8.5 L (11.4-16.0) gm/dL Hct 29.5 L (34.0-46.0) % MCHC 28.8 L (31.0-37.0) g/dL RDW 17.9 H (11.5-15.5) % Neutrophils # 13.8 H (1.3-7.7) k/uL PT 16.2 H (9.0-12.0) sec INR 1.8 H (<1.2) ABG pCO2 (35-45) mmHg ABG pO2 (83-108) mmHg ABG HCO3 (21-25) mmol/L ABG Total CO2 (19-24) mmol/L ABG O2 Saturation (94-97) % Potassium 3.4 L (3.5-5.1) mmol/L Chloride 92 L (98-107) mmol/L Carbon Dioxide 39 H (22-30) mmol/L BUN 53 H (7-17) mg/dL Creatinine 1.10 H (0.52-1.04) mg/dL POC Glucose (mg/dL) (75-99) mg/dL AST 52 H (14-36) U/L Total Protein 5.5 L (6.3-8.2) g/dL Albumin 2.5 L (3.5-5.0) g/dL 12/09/17 Range/Units 05:26 WBC (3.8-10.6) k/uL RBC (3.80-5.40) m/uL Hgb (11.4-16.0) gm/dL Hct (34.0-46.0) % MCHC (31.0-37.0) g/dL RDW (11.5-15.5) % Neutrophils # (1.3-7.7) k/uL PT (9.0-12.0) sec INR (<1.2) ABG pCO2 57 H (35-45) mmHg ABG pO2 118 H (83-108) mmHg ABG HCO3 37 H (21-25) mmol/L ABG Total CO2 39 H (19-24) mmol/L ABG O2 Saturation 98.2 H (94-97) % Potassium (3.5-5.1) mmol/L Chloride (98-107) mmol/L Carbon Dioxide (22-30) mmol/L BUN (7-17) mg/dL Creatinine (0.52-1.04) mg/dL POC Glucose (mg/dL) (75-99) mg/dL AST (14-36) U/L Total Protein (6.3-8.2) g/dL Albumin (3.5-5.0) g/dL Microbiology - Last 24 Hours (Table) 12/07/17 15:40 Gram Stain - Preliminary Chest Wound Culture - Preliminary Gram Neg Bacilli Assessment and Plan Assessment: #1 CAD, status post coronary artery bypass grafting times #2 severe mitral valve regurgitation, status post replacement #3 status post modified Maze procedure and ligation of left atrial appendage #4 postoperative atrial fibrillation and atrial flutter, status post electrical cardioversion, maintaining sinus rhythm #5 left pleural effusion #6 sternal wound dehiscence Plan: From cardiology's perspective, medications were reviewed and we will continue the same. Continue ICU care and appropriate interventions for wound dehiscence and pleural effusion. Will continue to follow patient and provide further recommendations accordingly. [facility] note has been reviewed, I agree with a documented findings and plan of care. Patient was seen and examined.
[2017-12-09] MEDS: POTASSIUM CHLORIDE ER 20 MEQ TAB.ER PO SCH ×2 (10:43→10:47)
[2017-12-09 12:02] LABS: Glucose,Whole Blood 97 mg/dL (75-99)
--- NOTE | 2017-12-09 16:12 | P.PN ---
Subjective Progress Note Date: 12/09/17 Progress note being dictated for Dr. Lugo. Interval history: This is 67-year-old female status post CABG, mitral valve replacement, status post multiple blood products transfusions. Remains vent dependent on 40% FiO2/+5 of PEEP. Chest x-ray reporting fluid overload, improvement in volume status, aeration.Maintained on norepinephrine, Primacor, dopamine and insulin drip. Cardiac index 2.7. Telemetry atrial flutter/sinus tach. Tube feeding initiated via OG tube. Hemoglobin 7.3, Platelets decreased to 64 today, maintained on low-dose aspirin. Review systems unable to obtain as patient sedated and on mechanical ventilation. Active Medications Albuterol/Ipratropium (Duoneb 0.5 Mg-3 Mg/3 Ml Soln) 3 ml INHALATION RT-Q4H [facility] Last Admin: 11/29/17 15:17 Dose: 3 ml Albuterol/Ipratropium (Duoneb 0.5 Mg-3 Mg/3 Ml Soln) 3 ml INHALATION RT-Q2H PRN PRN Reason: Shortness Of Breath Or Wheezing Amiodarone HCl (Cordarone) 200 mg PO BID [facility] Aspirin (Aspirin) 81 mg PO DAILY [facility] Last Admin: 11/29/17 08:54 Dose: 81 mg Atorvastatin Calcium (Lipitor) 40 mg PO DAILY [facility] Last Admin: 11/29/17 08:54 Dose: 40 mg Benzocaine/Menthol (Cepacol Lozenge) 1 each MUCOUS MEM Q2H PRN PRN Reason: Sore Throat Bisacodyl (Dulcolax) 10 mg RECTAL DAILY PRN PRN Reason: Constipation Chlorhexidine Gluconate (Peridex) 15 ml MUCOUS MEM BID [facility] Last Admin: 11/29/17 08:48 Dose: 15 ml Furosemide (Lasix) 40 mg IV ONCE ONE Stop: 11/29/17 20:01 Propofol 1,000 mg/ IV Solution 100 mls @ 0 mls/hr IV .Q0M [facility]; Titrate PRN Reason: Protocol Last Admin: 11/29/17 17:54 Dose: 26.13 mcg/kg/min, 17.2 mls/hr Norepinephrine Bitartrate (Levophed-0.9% Nacl 16 Mg/250ml Pmx) 16 mg in 250 mls @ 0 mls/hr IV .Q0M [facility]; Titrate PRN Reason: Protocol Last Admin: 11/29/17 17:54 Dose: 2 mcg/min, 1.875 mls/hr Sodium Chloride (Saline 0.45%) 1,000 mls @ 30 mls/hr IV .Q24H [facility] Last Admin: 11/29/17 10:28 Dose: Not Given Milrinone Lactate/Dextrose 20 (mg/ IV Solution) 100 mls @ 6.58 mls/hr IV .[id number] [facility] PRN Reason: 0.2 MCG/KG/MIN Last Admin: 11/29/17 15:38 Dose: 0.2 mcg/kg/min, 6.58 mls/hr Insulin Aspart (Novolog) 0 unit SQ Q6HR [facility] PRN Reason: Protocol Last Admin: 11/29/17 12:36 Dose: Not Given Magnesium Hydroxide (Milk Of Magnesia) 2,400 mg PO BID PRN PRN Reason: Constipation Metoprolol Tartrate (Lopressor) 12.5 mg PO BID [facility] Last Admin: 11/29/17 08:55 Dose: 12.5 mg Miscellaneous Information (Magnesium Per Protocol) 1 each MISCELLANE DAILY PRN ; Protocol PRN Reason: Per Protocol Miscellaneous Information (Phosphorus Per Protocol) 1 each MISCELLANE DAILY PRN ; Protocol PRN Reason: Per Protocol Miscellaneous Information (Potassium Per Protocol) 1 each MISCELLANE DAILY PRN ; Protocol PRN Reason: Per Protocol Miscellaneous Information (Potassium Per Protocol) 1 each MISCELLANE DAILY PRN ; Protocol PRN Reason: Per Protocol Morphine Sulfate (Morphine Oral Dana 2mg/Ml) 6 mg PO Q2H PRN PRN Reason: Severe Pain Ondansetron HCl (Zofran) 4 mg IVP Q6HR PRN PRN Reason: Nausea And Vomiting Pantoprazole Sodium (Protonix) 40 mg IVP DAILY [facility] Last Admin: 11/29/17 08:55 Dose: 40 mg Senna/Docusate Sodium (Senokot-S) 2 each PO HS [facility] Last Admin: 11/28/17 20:41 Dose: 2 each Sodium Chloride (Saline Flush) 10 ml IV BID [facility] Last Admin: 11/29/17 08:56 Dose: 10 ml 11/30/2017 Chest x-ray reporting increased congestion, received additional Lasix. extubated this morning, currently maintained on BiPAP. Norepinephrine weaned off this morning. Maintained on Primacor, cardiac index 2.6. Received 1 dose of Lasix IV push. Renal function improving. Hemoglobin 7, platelets increased to 74. Atrial flutter per telemetry. Review systems unable to obtain as patient BiPAP dependent. Active Medications Generic Name Dose Route Start Last Admin Trade Name Freq PRN Reason Stop Dose Admin Albuterol/Ipratropium 3 ml 11/25/17 20:00 11/30/17 15:23 Duoneb 0.5 Mg-3 Mg/3 Ml Soln INHALATION 3 ml RT-Q4H [facility] Administration Albuterol/Ipratropium 3 ml 11/26/17 17:53 Duoneb 0.5 Mg-3 Mg/3 Ml Soln INHALATION RT-Q2H PRN Shortness Of Breath Or Wheezing Amiodarone HCl 200 mg 11/29/17 21:00 11/30/17 08:14 Cordarone PO 200 mg BID [facility] Administration Aspirin 81 mg 11/26/17 10:15 11/30/17 08:15 Aspirin PO 81 mg DAILY [facility] Administration Atorvastatin Calcium 40 mg 11/26/17 09:00 11/30/17 08:14 Lipitor PO 40 mg DAILY [facility] Administration Benzocaine/Menthol 1 each 11/25/17 19:03 Cepacol Lozenge MUCOUS MEM Q2H PRN Sore Throat Bisacodyl 10 mg 11/26/17 17:52 Dulcolax RECTAL DAILY PRN Constipation Fondaparinux 2.5 mg 11/30/17 11:30 11/30/17 13:23 Arixtra SQ 2.5 mg DAILY [facility] Administration Norepinephrine Bitartrate 16 mg in 250 mls @ 0 mls/hr 11/26/17 04:15 11:58 Levophed-0.9% Nacl 16 Mg/250ml Pmx IV 0 mcg/min .Q0M [facility] 0 mls/hr Protocol Titration Titrate Sodium Chloride 1,000 mls @ 10 mls/hr 11/26/17 10:15 11/30/17 12:51 Saline 0.45% IV Not Given .Q24H [facility] Milrinone Lactate/Dextrose 20 100 mls @ 6.58 mls/hr 11/29/17 15:00 11/30/17 08:16 mg/ IV Solution IV 0.2 mcg/kg/min .[id number] [facility] 6.58 mls/hr 0.2 MCG/KG/MIN Infusion Insulin Aspart 0 unit 11/29/17 12:00 11/30/17 12:50 Novolog SQ Not Given Q6HR [facility] Protocol Magnesium Hydroxide 2,400 mg 11/26/17 17:53 Milk Of Magnesia PO BID PRN Constipation Metoprolol Tartrate 12.5 mg 11/26/17 09:00 11/30/17 08:15 Lopressor PO 12.5 mg BID [facility] Administration Miscellaneous Information 1 each 11/25/17 19:03 Magnesium Per Protocol MISCELLANE DAILY PRN Per Protocol Protocol Miscellaneous Information 1 each 11/25/17 19:03 Phosphorus Per Protocol MISCELLANE DAILY PRN Per Protocol Protocol Miscellaneous Information 1 each 11/25/17 19:03 Potassium Per Protocol MISCELLANE DAILY PRN Per Protocol Protocol Miscellaneous Information 1 each 11/29/17 12:01 Potassium Per Protocol MISCELLANE DAILY PRN Per Protocol Protocol Morphine Sulfate 6 mg 11/29/17 13:31 Morphine Oral Dana 2mg/Ml PO Q2H PRN Severe Pain Ondansetron HCl 4 mg 11/25/17 19:03 Zofran IVP Q6HR PRN Nausea And Vomiting Pantoprazole Sodium 40 mg 11/26/17 09:00 11/30/17 08:15 Protonix IVP 40 mg DAILY [facility] Administration Senna/Docusate Sodium 2 each 11/26/17 21:00 11/29/17 20:40 Senokot-S PO 2 each HS [facility] Administration Sodium Chloride 10 ml 11/25/17 21:00 11/30/17 08:15 Saline Flush IV 10 ml BID [facility] Administration 12/01/2017 Breathing improving, weaned off of BiPAP and down to 6 L high flow. Wheezing resolved. Chest x-ray reports improvement. Staff reports patient appeared to be choking on pills last night, speech therapy consulted. Receiving one unit of packed RBCs for hemoglobin of 6.7. Mediastinal chest tubes discontinued, left pleural chest tube remains. Maintained on Primacor. Telemetry atrial flutter. Review of systems: CONSTITUTIONAL: No fever, no malaise HEENT: No recent visual problems or hearing problems. Denied any sore throat. CARDIOVASCULAR: No chest pain, no palpitations, no syncope. PULMONARY: Improving shortness of breath, no cough, no hemoptysis. GASTROINTESTINAL: No diarrhea, no nausea, no vomiting, no abdominal pain. Normoactive bowel sounds. NEUROLOGICAL: No headaches, diffuse weakness, no numbness. HEMATOLOGICAL: Denies any bleeding or petechiae. GENITOURINARY: Denies any burning micturition, frequency, or urgency. ENDOCRINE: Denies any polyuria or polydipsia. PSYCHIATRIC: No anxiety, no depression Active Medications Hydrocodone Bitart/Acetaminophen ([place] 5-325) 1 each PO Q4HR PRN PRN Reason: MILD TO MODERATE Pain Last Admin: 12/01/17 22:44 Dose: 1 each Hydrocodone Bitart/Acetaminophen ([place] 5-325) 2 each PO Q4HR PRN PRN Reason: MODERATE TO SEVERE Pain Albuterol/Ipratropium (Duoneb 0.5 Mg-3 Mg/3 Ml Soln) 3 ml INHALATION RT-Q4H [facility] Last Admin: 12/02/17 15:06 Dose: 3 ml Albuterol/Ipratropium (Duoneb 0.5 Mg-3 Mg/3 Ml Soln) 3 ml INHALATION RT-Q2H PRN PRN Reason: Shortness Of Breath Or Wheezing Last Admin: 12/01/17 18:09 Dose: 3 ml Amiodarone HCl (Cordarone) 200 mg PO BID [facility] Last Admin: 12/02/17 08:10 Dose: 200 mg Aspirin (Aspirin) 81 mg PO DAILY [facility] Last Admin: 12/02/17 08:10 Dose: 81 mg Atorvastatin Calcium (Lipitor) 40 mg PO DAILY [facility] Last Admin: 12/02/17 08:10 Dose: 40 mg Benzocaine/Menthol (Cepacol Lozenge) 1 each MUCOUS MEM Q2H PRN PRN Reason: Sore Throat Bisacodyl (Dulcolax) 10 mg RECTAL DAILY PRN PRN Reason: Constipation Budesonide (Pulmicort) 1 mg INHALATION RT-BID [facility] Last Admin: 12/02/17 07:19 Dose: 1 mg Fondaparinux (Arixtra) 2.5 mg SQ DAILY [facility] Last Admin: 12/02/17 08:10 Dose: 2.5 mg Formoterol Fumarate (Perforomist) 20 mcg INHALATION RT-BID [facility] Last Admin: 12/02/17 07:36 Dose: 20 mcg Norepinephrine Bitartrate (Levophed-0.9% Nacl 16 Mg/250ml Pmx) 16 mg in 250 mls @ 0 mls/hr IV .Q0M [facility]; Titrate PRN Reason: Protocol Last Titration: 11/30/17 11:58 Dose: 0 mcg/min, 0 mls/hr Sodium Chloride (Saline 0.45%) 1,000 mls @ 10 mls/hr IV .Q24H [facility] Last Admin: 12/01/17 14:04 Dose: 10 mls/hr Milrinone Lactate/Dextrose 20 (mg/ IV Solution) 100 mls @ 6.58 mls/hr IV .[id number] [facility] PRN Reason: 0.2 MCG/KG/MIN Last Admin: 12/02/17 08:57 Dose: 0.2 mcg/kg/min, 6.58 mls/hr Insulin Aspart (Novolog) 0 unit SQ Q6HR [facility] PRN Reason: Protocol Last Admin: 12/02/17 12:53 Dose: Not Given Magnesium Hydroxide (Milk Of Magnesia) 2,400 mg PO BID PRN PRN Reason: Constipation Methylprednisolone Sodium Succinate (Solu-Medrol) 30 mg IV Q8HR [facility] Last Admin: 12/02/17 08:10 Dose: 30 mg Metoprolol Tartrate (Lopressor) 25 mg PO BID [facility] Last Admin: 12/02/17 08:59 Dose: 25 mg Miscellaneous Information (Magnesium Per Protocol) 1 each MISCELLANE DAILY PRN ; Protocol PRN Reason: Per Protocol Miscellaneous Information (Phosphorus Per Protocol) 1 each MISCELLANE DAILY PRN ; Protocol PRN Reason: Per Protocol Miscellaneous Information (Potassium Per Protocol) 1 each MISCELLANE DAILY PRN ; Protocol PRN Reason: Per Protocol Miscellaneous Information (Potassium Per Protocol) 1 each MISCELLANE DAILY PRN ; Protocol PRN Reason: Per Protocol Ondansetron HCl (Zofran) 4 mg IVP Q6HR PRN PRN Reason: Nausea And Vomiting Pantoprazole Sodium (Protonix) 40 mg IVP DAILY [facility] Last Admin: 12/02/17 08:10 Dose: 40 mg Senna/Docusate Sodium (Senokot-S) 2 each PO HS [facility] Last Admin: 12/01/17 21:55 Dose: 2 each Sodium Chloride (Saline Flush) 10 ml IV BID [facility] Last Admin: 12/02/17 12:51 Dose: 10 ml 12/02/17 Much more alert today. Oxygen weaned further down to 5 L nasal cannula, maintaining O2 sats in the high 90s. Pleural chest tube discontinued. Chest x- ray reporting probable right lower lobe atelectasis/effusion. Underwent modified barium swallow, with recommendations of regular diet, thin liquids, chin tuck, no straw, small bites/sepsis/sips; no impairment with exception of mild transient penetration with thin liquids which patient independently cleared. Yesterday receive 1 unit of packed RBCs with current hemoglobin 8. Weaning of Primacor in progress. 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 Review of systems: CONSTITUTIONAL: No fever, no malaise, no fatigue. HEENT: No recent visual problems or hearing problems. Denied any sore throat. CARDIOVASCULAR: No chest pain, no palpitations, no syncope. PULMONARY: Minimal shortness of breath, no cough, no hemoptysis. GASTROINTESTINAL: No diarrhea, no nausea, no vomiting, no abdominal pain. Normoactive bowel sounds. NEUROLOGICAL: No headaches, no weakness, no numbness. HEMATOLOGICAL: Denies any bleeding or petechiae. GENITOURINARY: Denies any burning micturition, frequency, or urgency. MUSCULOSKELETAL/RHEUMATOLOGICAL: Denies any joint pain, swelling, or any muscle pain. ENDOCRINE: Denies any polyuria or polydipsia. PSYCHIATRIC: No anxiety, no depression The rest of the 14 point review of systems is negative Active Medications Generic Name Dose Route Start Last Admin Trade Name Freq PRN Reason Stop Dose Admin Hydrocodone Bitart/Acetaminophen 1 each 12/01/17 12:20 12/01/17 22:44 [place] 5-325 PO 1 each Q4HR PRN Administration MILD TO MODERATE Pain Hydrocodone Bitart/Acetaminophen 2 each 12/01/17 12:20 [place] 5-325 PO Q4HR PRN MODERATE TO SEVERE Pain Albuterol/Ipratropium 3 ml 11/25/17 20:00 12/02/17 15:06 Duoneb 0.5 Mg-3 Mg/3 Ml Soln INHALATION 3 ml RT-Q4H [facility] Administration Albuterol/Ipratropium 3 ml 11/26/17 17:53 12/01/17 18:09 Duoneb 0.5 Mg-3 Mg/3 Ml Soln INHALATION 3 ml RT-Q2H PRN Administration Shortness Of Breath Or Wheezing Amiodarone HCl 200 mg 11/29/17 21:00 12/02/17 08:10 Cordarone PO 200 mg BID [facility] Administration Aspirin 81 mg 11/26/17 10:15 12/02/17 08:10 Aspirin PO 81 mg DAILY [facility] Administration Atorvastatin Calcium 40 mg 11/26/17 09:00 12/02/17 08:10 Lipitor PO 40 mg DAILY [facility] Administration Benzocaine/Menthol 1 each 11/25/17 19:03 Cepacol Lozenge MUCOUS MEM Q2H PRN Sore Throat Bisacodyl 10 mg 11/26/17 17:52 Dulcolax RECTAL DAILY PRN Constipation Budesonide 1 mg 12/01/17 20:00 12/02/17 07:19 Pulmicort INHALATION 1 mg RT-BID [facility] Administration Fondaparinux 2.5 mg 11/30/17 11:30 12/02/17 08:10 Arixtra SQ 2.5 mg DAILY [facility] Administration Formoterol Fumarate 20 mcg 12/01/17 20:00 12/02/17 07:36 Perforomist INHALATION 20 mcg RT-BID [facility] Administration Norepinephrine Bitartrate 16 mg in 250 mls @ 0 mls/hr 11/26/17 04:15 11:58 Levophed-0.9% Nacl 16 Mg/250ml Pmx IV 0 mcg/min .Q0M [facility] 0 mls/hr Protocol Titration Titrate Sodium Chloride 1,000 mls @ 10 mls/hr 11/26/17 10:15 12/02/17 15:41 Saline 0.45% IV Not Given .Q24H [facility] Milrinone Lactate/Dextrose 20 100 mls @ 6.58 mls/hr 11/29/17 15:00 12/02/17 08:57 mg/ IV Solution IV 0.2 mcg/kg/min .[id number] [facility] 6.58 mls/hr 0.2 MCG/KG/MIN Administration Insulin Aspart 0 unit 11/29/17 12:00 12/02/17 12:53 Novolog SQ Not Given Q6HR [facility] Protocol Magnesium Hydroxide 2,400 mg 11/26/17 17:53 Milk Of Magnesia PO BID PRN Constipation Methylprednisolone Sodium Succinate 30 mg 12/01/17 16:00 12/02/17 08:10 Solu-Medrol IV 30 mg Q8HR [facility] Administration Metoprolol Tartrate 25 mg 12/02/17 09:00 12/02/17 08:59 Lopressor PO 25 mg BID [facility] Administration Miscellaneous Information 1 each 11/25/17 19:03 Magnesium Per Protocol MISCELLANE DAILY PRN Per Protocol Protocol Miscellaneous Information 1 each 11/25/17 19:03 Phosphorus Per Protocol MISCELLANE DAILY PRN Per Protocol Protocol Miscellaneous Information 1 each 11/25/17 19:03 Potassium Per Protocol MISCELLANE DAILY PRN Per Protocol Protocol Miscellaneous Information 1 each 11/29/17 12:01 Potassium Per Protocol MISCELLANE DAILY PRN Per Protocol Protocol Ondansetron HCl 4 mg 11/25/17 19:03 Zofran IVP Q6HR PRN Nausea And Vomiting Pantoprazole Sodium 40 mg 11/26/17 09:00 12/02/17 08:10 Protonix IVP 40 mg DAILY [facility] Administration Senna/Docusate Sodium 2 each 11/26/17 21:00 12/01/17 21:55 Senokot-S PO 2 each HS [facility] Administration Sodium Chloride 10 ml 11/25/17 21:00 12/02/17 12:51 Saline Flush IV 10 ml BID [facility] Administration 12/03/17 maintained on nebulized bronchodilators, steroids,patient tachypneic, requiring BiPap throughout today off and on. Chest x-ray suggestive of fluid overload. Received additional Lasix. Maintained on oral amiodarone, remains in a-flutter. Overdrive atrial pacing attempted unsuccessfully. Digoxin 2 ordered. Pacer wires discontinued today. Stool at bedside with PT OT, remains extremely weak. Primacor weaned off yesterday. 2017 currently in atrial fibrillation with heart rates up into the 150s, scheduled for cardioversion tomorrow. INR 2.2. Patient currently wearing BiPAP ,has required on and off all day. Chest ultrasound reporting bilateral pleural effusions, larger on the right. Thoracentesis on hold, awaiting cardioversion.Chest x-ray reporting prominent interstitium and central vascularity, increased bibasilar density. Attempting diuresing with Lasix and Zaroxolyn. Review systems unable to obtain as patient currently on BiPAP. Active Medications Hydrocodone Bitart/Acetaminophen ([place] 5-325) 1 each PO Q4HR PRN PRN Reason: MILD TO MODERATE Pain Last Admin: 12/07/17 10:48 Dose: 1 each Hydrocodone Bitart/Acetaminophen ([place] 5-325) 2 each PO Q4HR PRN PRN Reason: MODERATE TO SEVERE Pain Last Admin: 12/07/17 16:39 Dose: 2 each Albuterol/Ipratropium (Duoneb 0.5 Mg-3 Mg/3 Ml Soln) 3 ml INHALATION RT-Q2H PRN PRN Reason: Shortness Of Breath Or Wheezing Last Admin: 12/01/17 18:09 Dose: 3 ml Albuterol/Ipratropium (Duoneb 0.5 Mg-3 Mg/3 Ml Soln) 3 ml INHALATION RT-QID [facility] Last Admin: 12/07/17 16:43 Dose: 3 ml Amiodarone HCl (Cordarone) 200 mg PO BID [facility] Aspirin (Aspirin) 81 mg PO DAILY [facility] Last Admin: 12/07/17 08:53 Dose: 81 mg Atorvastatin Calcium (Lipitor) 40 mg PO DAILY [facility] Last Admin: 12/07/17 08:53 Dose: 40 mg Benzocaine/Menthol (Cepacol Lozenge) 1 each MUCOUS MEM Q2H PRN PRN Reason: Sore Throat Bisacodyl (Dulcolax) 10 mg RECTAL DAILY PRN PRN Reason: Constipation Budesonide (Pulmicort) 1 mg INHALATION RT-BID [facility] Last Admin: 12/07/17 08:36 Dose: 1 mg Escitalopram Oxalate (Lexapro) 10 mg PO HS [facility] Furosemide (Lasix) 40 mg IV Q12HR [facility] Last Admin: 12/07/17 08:33 Dose: 40 mg Piperacillin/Tazobactam/ (Dextrose 3.375 gm/ IV Solution) 50 mls @ 12.5 mls/hr IVPB Q8HR [facility] Last Admin: 12/07/17 16:39 Dose: 12.5 mls/hr Sodium Chloride (Saline 0.9%) 1,000 mls @ 20 mls/hr IV .Q24H [facility] Last Admin: 12/07/17 13:00 Dose: 20 mls/hr Lactated Ringer's (Lactated Ringers) 1,000 mls @ 20 mls/hr IV .Q24H [facility] Last Admin: 12/06/17 20:45 Dose: 20 mls/hr Insulin Aspart (Novolog) 0 unit SQ ACHS [facility] PRN Reason: Protocol Last Admin: 12/07/17 13:01 Dose: 2 unit Magnesium Hydroxide (Milk Of Magnesia) 2,400 mg PO BID PRN PRN Reason: Constipation Methylprednisolone Sodium Succinate (Solu-Medrol) 30 mg IV Q8HR [facility] Last Admin: 12/07/17 16:39 Dose: 30 mg Metolazone (Zaroxolyn) 5 mg PO DAILY [facility] Last Admin: 12/07/17 08:53 Dose: 5 mg Metoprolol Tartrate (Lopressor) 50 mg PO BID [facility] Last Admin: 12/07/17 08:53 Dose: 50 mg Miscellaneous Information (Magnesium Per Protocol) 1 each MISCELLANE DAILY PRN ; Protocol PRN Reason: Per Protocol Miscellaneous Information (Phosphorus Per Protocol) 1 each MISCELLANE DAILY PRN ; Protocol PRN Reason: Per Protocol Miscellaneous Information (Potassium Per Protocol) 1 each MISCELLANE DAILY PRN ; Protocol PRN Reason: Per Protocol Ondansetron HCl (Zofran) 4 mg IVP Q6HR PRN PRN Reason: Nausea And Vomiting Pantoprazole Sodium (Protonix) 40 mg PO [id number] [facility] Last Admin: 12/07/17 08:53 Dose: 40 mg Senna/Docusate Sodium (Senokot-S) 2 each PO HS [facility] Last Admin: 12/06/17 20:29 Dose: 2 each Sodium Chloride (Saline Flush) 10 ml IV BID [facility] Last Admin: 12/07/17 10:48 Dose: 10 ml 12/07/2017 Underwent successful cardioversion this morning,360J X1, remains in sinus rhythm. Currently wearing BiPAP. Nonproductive cough. Diuresing well on Lasix and Zaroxolyn with 24-hour I&O reflecting a negative fluid balance. Chest x-ray reporting stable bilateral areas of infiltrate and pleural effusions , possible CHF, possible pneumonia. INR 3.8, afebrile, WBC 17. Maintained on Zosyn. Sternal wound drainage, cultures sent. 12/08/2017 Cardioverted yesterday, remains in sinus rhythm .continues requiring BiPAP for majority of morning. Echo reporting-limited study for assessment of pericardial effusion, small generalized pericardial effusion, low normal LV function, EF 50-55%. Chest CT reporting sternal dehiscence, moderate to large pericardial effusion, possible mass effect onto the left ventricle, no significant right atrial dilatation to clearly indicate tamponade, moderate left pleural effusion with adjacent complete left lower lobar and inferior lingular collapse, small right pleural effusion, right basilar subsegmental atelectasis. Chest x-ray noted. Blood sugars controlled. INR 4.8, received vitamin K this morning. Diuresing well on Lasix IV push, Zaroxolyn. 24-hour I& O reflecting a negative fluid balance, decreased weight. Midsternal incision open, draining large amount of serosanguineous drainage. Currently maintained on Zosyn. Wound cultures pending. Afebrile. Review systems unable to obtain as patient currently on BiPAP. Active Medications Generic Name Dose Route Start Last Admin Trade Name Freq PRN Reason Stop Dose Admin Hydrocodone Bitart/Acetaminophen 1 each 12/01/17 12:20 12/08/17 06:26 [place] 5-325 PO 1 each Q4HR PRN Administration MILD TO MODERATE Pain Hydrocodone Bitart/Acetaminophen 2 each 12/01/17 12:20 12/08/17 18:41 [place] 5-325 PO 2 each Q4HR PRN Administration MODERATE TO SEVERE Pain Acetazolamide Sodium 250 mg 12/08/17 09:15 12/08/17 11:16 Diamox IV 12/08/17 21:01 250 mg Q12HR [facility] Administration Albuterol/Ipratropium 3 ml 11/26/17 17:53 12/08/17 05:16 Duoneb 0.5 Mg-3 Mg/3 Ml Soln INHALATION 3 ml RT-Q2H PRN Administration Shortness Of Breath Or Wheezing Albuterol/Ipratropium 3 ml 12/03/17 08:00 12/08/17 15:38 Duoneb 0.5 Mg-3 Mg/3 Ml Soln INHALATION 3 ml RT-QID [facility] Administration Amiodarone HCl 200 mg 12/08/17 09:00 12/08/17 08:24 Cordarone PO 200 mg BID [facility] Administration Aspirin 81 mg 11/26/17 10:15 12/08/17 08:24 Aspirin PO 81 mg DAILY [facility] Administration Atorvastatin Calcium 40 mg 11/26/17 09:00 12/08/17 08:25 Lipitor PO 40 mg DAILY [facility] Administration Benzocaine/Menthol 1 each 11/25/17 19:03 Cepacol Lozenge MUCOUS MEM Q2H PRN Sore Throat Bisacodyl 10 mg 11/26/17 17:52 Dulcolax RECTAL DAILY PRN Constipation Budesonide 1 mg 12/01/17 20:00 12/08/17 09:26 Pulmicort INHALATION 1 mg RT-BID [facility] Administration Escitalopram Oxalate 10 mg 12/07/17 21:00 12/07/17 20:10 Lexapro PO 10 mg HS [facility] Administration Piperacillin/Tazobactam/ 50 mls @ 12.5 mls/hr 12/04/17 16:00 12/08/17 16:11 Dextrose 3.375 gm/ IV Solution IVPB 12.5 mls/hr Q8HR [facility] Administration Sodium Chloride 1,000 mls @ 20 mls/hr 12/06/17 10:45 12/08/17 13:47 Saline 0.9% IV Not Given .Q24H [facility] Insulin Aspart 0 unit 12/02/17 21:00 12/08/17 17:46 Novolog SQ 1 unit ACHS [facility] Administration Protocol Magnesium Hydroxide 2,400 mg 11/26/17 17:53 Milk Of Magnesia PO BID PRN Constipation Metoprolol Tartrate 50 mg 12/06/17 21:00 12/08/17 08:24 Lopressor PO 50 mg BID [facility] Administration Miscellaneous Information 1 each 11/25/17 19:03 Magnesium Per Protocol MISCELLANE DAILY PRN Per Protocol Protocol Miscellaneous Information 1 each 11/25/17 19:03 Phosphorus Per Protocol MISCELLANE DAILY PRN Per Protocol Protocol Miscellaneous Information 1 each 11/25/17 19:03 Potassium Per Protocol MISCELLANE DAILY PRN Per Protocol Protocol Ondansetron HCl 4 mg 11/25/17 19:03 Zofran IVP Q6HR PRN Nausea And Vomiting Pantoprazole Sodium 40 mg 12/05/17 07:30 12/08/17 08:25 Protonix PO 40 mg [id number] CARLEE Administration Senna/Docusate Sodium 2 each 11/26/17 21:00 12/07/17 20:16 Senokot-S PO 2 each HS CARLEE Administration Sodium Chloride 10 ml 11/25/17 21:00 12/08/17 11:16 Saline Flush IV 10 ml BID CARLEE Administration 12/09/17 Remains in sinus rhythm. mostly BiPAP dependent. Incentive spirometer up to 700 -750. Chest x-ray reporting improving moderate pleural effusion, cardiomegaly. Sternal wound culture positive for gram-negative bacilli. Maintained on Zosyn. Diet intake fair. Blood sugars controlled. Review systems unable to be performed as patient on BiPAP Active Medications Hydrocodone Bitart/Acetaminophen ([place] 5-325) 1 each PO Q4HR PRN PRN Reason: MILD TO MODERATE Pain Last Admin: 12/09/17 10:03 Dose: 1 each Hydrocodone Bitart/Acetaminophen ([place] 5-325) 2 each PO Q4HR PRN PRN Reason: MODERATE TO SEVERE Pain Last Admin: 12/09/17 14:51 Dose: 2 each Albuterol/Ipratropium (Duoneb 0.5 Mg-3 Mg/3 Ml Soln) 3 ml INHALATION RT-Q2H PRN PRN Reason: Shortness Of Breath Or Wheezing Last Admin: 12/08/17 05:16 Dose: 3 ml Albuterol/Ipratropium (Duoneb 0.5 Mg-3 Mg/3 Ml Soln) 3 ml INHALATION RT-QID [facility] Last Admin: 12/09/17 15:42 Dose: 3 ml Amiodarone HCl (Cordarone) 200 mg PO BID [facility] Last Admin: 12/09/17 08:12 Dose: 200 mg Aspirin (Aspirin) 81 mg PO DAILY [facility] Last Admin: 12/09/17 08:13 Dose: 81 mg Atorvastatin Calcium (Lipitor) 40 mg PO DAILY [facility] Last Admin: 12/09/17 08:13 Dose: 40 mg Benzocaine/Menthol (Cepacol Lozenge) 1 each MUCOUS MEM Q2H PRN PRN Reason: Sore Throat Bisacodyl (Dulcolax) 10 mg RECTAL DAILY PRN PRN Reason: Constipation Budesonide (Pulmicort) 1 mg INHALATION RT-BID [facility] Last Admin: 12/09/17 07:45 Dose: 1 mg Escitalopram Oxalate (Lexapro) 10 mg PO HS [facility] Last Admin: 12/08/17 20:33 Dose: 10 mg Piperacillin/Tazobactam/ (Dextrose 3.375 gm/ IV Solution) 50 mls @ 12.5 mls/hr IVPB Q8HR [facility] Last Admin: 12/09/17 08:16 Dose: 12.5 mls/hr Sodium Chloride (Saline 0.9%) 1,000 mls @ 20 mls/hr IV .Q24H [facility] Last Admin: 12/09/17 08:17 Dose: 20 mls/hr Insulin Aspart (Novolog) 0 unit SQ ACHS CARLEE PRN Reason: Protocol Last Admin: 12/09/17 12:23 Dose: Not Given Magnesium Hydroxide (Milk Of Magnesia) 2,400 mg PO BID PRN PRN Reason: Constipation Metoprolol Tartrate (Lopressor) 50 mg PO BID [facility] Last Admin: 12/09/17 08:13 Dose: 50 mg Miscellaneous Information (Magnesium Per Protocol) 1 each MISCELLANE DAILY PRN ; Protocol PRN Reason: Per Protocol Miscellaneous Information (Phosphorus Per Protocol) 1 each MISCELLANE DAILY PRN ; Protocol PRN Reason: Per Protocol Miscellaneous Information (Potassium Per Protocol) 1 each MISCELLANE DAILY PRN ; Protocol PRN Reason: Per Protocol Ondansetron HCl (Zofran) 4 mg IVP Q6HR PRN PRN Reason: Nausea And Vomiting Pantoprazole Sodium (Protonix) 40 mg PO AC-BRKFST [facility] Last Admin: 12/09/17 08:11 Dose: 40 mg Senna/Docusate Sodium (Senokot-S) 2 each PO HS [facility] Last Admin: 12/08/17 20:37 Dose: 2 each Sodium Chloride (Saline Flush) 10 ml IV BID [facility] Last Admin: 12/09/17 08:13 Dose: 10 ml Objective - Vital Signs Vital signs: Vital Signs Temp 97.4 F L 12/09/17 12:00 Pulse 85 12/09/17 15:43 Resp 31 H 12/09/17 14:00 BP 111/59 12/09/17 14:00 Pulse Ox 94 L 12/09/17 14:00 Intake & Output 12/08/17 12/09/17 12/09/17 18:59 06:59 18:59 Intake Total 930.0 50.0 405.0 Output Total 1800 525 200 Balance -870.0 -475.0 205.0 Weight 98.2 kg 98.2 kg Intake: IV 230.0 50.0 85.0 Lactated Ringers 1,000 ml 80 10 @ 20 mls/hr IV .Q24H [facility] Rx#:[id number] Phytonadione 2 mg In 50 Sodium Chloride 0.9% 50 ml @ 100 mls/hr IVPB ONCE STA Rx#:[id number] Piperacillin-Tazobactam 3 100.0 50.0 75.0 .375 gm In Dextrose/Water 1 50ml.bag @ 12.5 mls/hr IVPB Q8HR [facility] Rx#: [id number] Intake, IV Titration 80 Amount Sodium Chloride 0.9% 1, 80 000 ml @ 20 mls/hr IV . Q24H [facility] Rx#:[id number] Oral 700 240 Output: Urine 1800 525 200 Other: Voiding Method Bedpan # Voids 2 # Bowel Movements 1 ABP, PAP, CO, CI - Last Documented Arterial Blood Pressure 110/60 Pulmonary Artery Pressure 38/33 Cardiac Output 5.8 Cardiac Index 2.9 - Exam PHYSICAL EXAM: VITAL SIGNS: As above GENERAL: Sitting up in bed, respiratory effort increased, wearing BiPAP HEENT: Conjunctivae normal. eyes normal. NECK: No JVD. No thyroid enlargement. No LNs CARDIOVASCULAR: S1, S2 muffled. No murmur RESPIRATION: Breath sounds diminished in the bases. Scattered rhonchi, fine scattered crackles greater on the left. ABDOMEN: Soft, nontender . No guarding. no masses palpable.Bowel sounds heard. Extremities: Improving edema PSYCHIATRY:/NERVOUS SYSTEM: Alert and oriented 3, moves all 4 extremities no focal deficits, Skin: Midsternal incision open,large amount of serosanguineous drainage,with packing, right medial buttock & right buttock skin tears, type II - III, Right lower arm Skin tear,type II, Lower back shearing injury with sloughing, excoriation, erythema Microbiology 12/07/17 15:40 Chest Gram Stain - Preliminary 12/07/17 15:40 Chest Wound Culture - Preliminary Gram Neg Bacilli 12/04/17 10:00 Urine,Voided Urine Culture - Final Escherichia coli Serratia marcescens 11/26/17 04:00 Sputum Gram Stain - Final 11/26/17 04:00 Sputum Sputum Culture - Final - Labs CBC & Chem 7: 12/09/17 05:00 12/09/17 05:00 Labs: Abnormal Lab Results - Last 24 Hours (Table) 12/08/17 12/08/17 12/09/17 Range/Units 17:26 20:43 05:00 WBC 15.9 H (3.8-10.6) k/uL RBC 3.32 L (3.80-5.40) m/uL Hgb 8.5 L (11.4-16.0) gm/dL Hct 29.5 L (34.0-46.0) % MCHC 28.8 L (31.0-37.0) g/dL RDW 17.9 H (11.5-15.5) % Neutrophils # 13.8 H (1.3-7.7) k/uL PT (9.0-12.0) sec INR (<1.2) ABG pCO2 (35-45) mmHg ABG pO2 (83-108) mmHg ABG HCO3 (21-25) mmol/L ABG Total CO2 (19-24) mmol/L ABG O2 Saturation (94-97) % Potassium (3.5-5.1) mmol/L Chloride (98-107) mmol/L Carbon Dioxide (22-30) mmol/L BUN (7-17) mg/dL Creatinine (0.52-1.04) mg/dL POC Glucose (mg/dL) 136 H 151 H (75-99) mg/dL AST (14-36) U/L Total Protein (6.3-8.2) g/dL Albumin (3.5-5.0) g/dL 12/09/17 12/09/17 12/09/17 Range/Units 05:00 05:00 05:26 WBC (3.8-10.6) k/uL RBC (3.80-5.40) m/uL Hgb (11.4-16.0) gm/dL Hct (34.0-46.0) % MCHC (31.0-37.0) g/dL RDW (11.5-15.5) % Neutrophils # (1.3-7.7) k/uL PT 16.2 H (9.0-12.0) sec INR 1.8 H (<1.2) ABG pCO2 57 H (35-45) mmHg ABG pO2 118 H (83-108) mmHg ABG HCO3 37 H (21-25) mmol/L ABG Total CO2 39 H (19-24) mmol/L ABG O2 Saturation 98.2 H (94-97) % Potassium 3.4 L (3.5-5.1) mmol/L Chloride 92 L (98-107) mmol/L Carbon Dioxide 39 H (22-30) mmol/L BUN 53 H (7-17) mg/dL Creatinine 1.10 H (0.52-1.04) mg/dL POC Glucose (mg/dL) (75-99) mg/dL AST 52 H (14-36) U/L Total Protein 5.5 L (6.3-8.2) g/dL Albumin 2.5 L (3.5-5.0) g/dL Microbiology - Last 24 Hours (Table) 12/07/17 15:40 Gram Stain - Preliminary Chest Wound Culture - Preliminary Gram Neg Bacilli Assessment and Plan Assessment: 1. Status post CABG with mitral valve replacement 2. Acute blood loss anemia with massive blood transfusions postoperatively, in a patient with history of GI bleed 3. Hypertension 4. Left subclavian stenosis 5. Proximal atrial fibrillation 6. Postoperative Hypoxic respiratory failure, status post vent dependent, currently requiring intermittent use of BiPAP 7. Obesity, BMI 41.6 8. S/P PICC line placement 9. 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 Acute UTI Serratia marcescens, E. coli 11. Bilateral pleural effusions, improved with diuretics. Possible aspiration pneumonia, possible fluid overload. 12. Midsternal wound dehiscence, culture growing gram-negative bacilli Plan: Continue on current medication regime , amiodarone, metoprolol , monitoring and symptomatic treatment. Maintain antibiotics, nebulized bronchodilators, IV steroids. Follow Sternal wound cultures closely. Infectious disease consulted, recommendations pending. Aggressive pulmonary toileting.GI and DVT prophylaxis in place. The impression and plan of care has been dictated as directed. : I performed a history and examination of this patient, discussed the same with the dictator. I agree with the dictator's note ,documented as a scribe. Any additional findings or plans will be noted.
[2017-12-09 17:04] LABS: Glucose,Whole Blood 106 mg/dL (75-99)
[2017-12-09] MEDS: SENNOSIDES-DOCUSATE SODIUM 1 EACH TAB PO SCH (20:21)
[2017-12-09] MEDS: ESCITALOPRAM 10 MG TAB PO SCH (20:22)
[2017-12-09 21:24] LABS: Glucose,Whole Blood 184 mg/dL (75-99)
--- NOTE | 2017-12-09 23:04 | P.CONS ---
History of Present Illness - Reason for Consult Consult date: 12/09/17 - Chief Complaint Mitral valve regurgitation - History of Present Illness Pleasant 67-year-old female who has an extensive past medical history who is now 14 days postoperative from her open heart procedure it which point in time a mitral valve placement occurred, reverse saphenous vein coronary artery bypass grafting 1 to obtuse marginal, Maze procedure and ligation of the left atrial appendage all occurred interoperatively left ventricular wall tear occurred and was repaired. The patient has a known history of multiple medical troubles before her surgery that included her obesity, COPD and marked deconditioning. Patient has had difficulties recently that included urinary tract infection with E. coli and Serratia and has been treated with intravenous antibiotic therapy with Zosyn. She was having some improvement but then developed dehiscence of her sternal wound and there are plans for surgical debridement tomorrow wound culture showing gram-negative bacilli and with at the infectious diseases consultation was requested. The patient continues to have significant respiratory difficulties and is currently on BiPAP for support. Postoperatively the patient was hemodynamically unstable which made even turning of the patient not possible which has resulted in unavoidable areas of skin breakdown, that are now treatable given her improvement. Review of Systems Patient is short of breath and on BiPAP per but relates that she's more comfortable than she's been HEENT:Denies headache or acute visual change. Denies sinus or mouth discomforts. Denies neck stiffness or pain. Denies significant oral cavity pain. Denies difficulty on swallowing. Oral mucosa dry Lungs: Patient has shortness of breath and is on BiPAP, denies cough or hemoptysis Cardiovascular: The patient has ongoing shortness of breath has ongoing discomfort in her chest since the surgery, GI: Denies nausea or emesis, appetite poor, no hematemesis motor hematochezia Musculoskeletal: denies significant myalgias or arthralgias Except for the sternal area discomfort. No new joint swelling. Denies new back pain. Skin: As per the HPI has evidence of wounds Neuro: Denies headache or visual change. Denies any new onset weakness or difficulty with ambulation. Denies falls or seizures. Psychiatric:Denies anxiety or depression. Endocrine: fatigue and did have preoperative weight gain Past Medical History Past Medical History: Atrial Fibrillation, GI Bleed, Hyperlipidemia, Hypertension, Osteoarthritis (OA) Additional Past Medical History / Comment(s): HX: Was told "leaky valve", pt states has been experiencing "gallbladder pain", followed by dr small for sx & elevated liver enzymes, shortness of breath with activity, recent GI bleed- transfusion in October 2017, has left subclavian stent-mostly occluded History of Any Multi-Drug Resistant Organisms: None Reported Past Surgical History: Heart Catheterization, Heart Catheterization With Stent, Orthopedic Surgery, Tonsillectomy Additional Past Surgical History / Comment(s): L subclavian stent x2, Other SX:D &C,NILDA, carpal tunnel geovanni Past Anesthesia/Blood Transfusion Reactions: No Reported Reaction Additional Past Anesthesia/Blood Transfusion Reaction / Comm: recent transfusion -no problems Date of Last Stent Placement:: 05/03/15 Additional Psychological History / Comment(s): . Stopped smoking several years ago. No experience or international travel. No animal exposures Smoking Status: Former smoker - Past Family History Mother Family Medical History: Hypertension Additional Family Medical History / Comment(s): LEAKY HEART VALVES,HEART PROBLEMS, WITH BOWEL OBS Father Family Medical History: Myocardial Infarction (OK) Additional Family Medical History / Comment(s): HEART PROBLEMS, AT AGE 68 WITH OK Medications and Allergies Home Medications and Allergies Comment(s): Current Medications Hydrocodone Bitart/Acetaminophen ([place] 5-325) 1 each PO Q4HR PRN PRN Reason: MILD TO MODERATE Pain Last Admin: 12/09/17 10:03 Dose: 1 each Hydrocodone Bitart/Acetaminophen ([place] 5-325) 2 each PO Q4HR PRN PRN Reason: MODERATE TO SEVERE Pain Last Admin: 12/09/17 20:23 Dose: 2 each Albuterol/Ipratropium (Duoneb 0.5 Mg-3 Mg/3 Ml Soln) 3 ml INHALATION RT-Q2H PRN PRN Reason: Shortness Of Breath Or Wheezing Last Admin: 12/08/17 05:16 Dose: 3 ml Albuterol/Ipratropium (Duoneb 0.5 Mg-3 Mg/3 Ml Soln) 3 ml INHALATION RT-QID [facility] Last Admin: 12/09/17 19:33 Dose: 3 ml Amiodarone HCl (Cordarone) 200 mg PO BID [facility] Last Admin: 12/09/17 20:22 Dose: 200 mg Aspirin (Aspirin) 81 mg PO DAILY [facility] Last Admin: 12/09/17 08:13 Dose: 81 mg Atorvastatin Calcium (Lipitor) 40 mg PO DAILY [facility] Last Admin: 12/09/17 08:13 Dose: 40 mg Benzocaine/Menthol (Cepacol Lozenge) 1 each MUCOUS MEM Q2H PRN PRN Reason: Sore Throat Bisacodyl (Dulcolax) 10 mg RECTAL DAILY PRN PRN Reason: Constipation Budesonide (Pulmicort) 1 mg INHALATION RT-BID [facility] Last Admin: 12/09/17 19:33 Dose: 1 mg Escitalopram Oxalate (Lexapro) 10 mg PO HS [facility] Last Admin: 12/09/17 20:22 Dose: 10 mg Sodium Chloride (Saline 0.9%) 1,000 mls @ 20 mls/hr IV .Q24H [facility] Last Admin: 12/09/17 08:17 Dose: 20 mls/hr Meropenem 1 gm/ Sodium (Chloride) 100 mls @ 100 mls/hr IVPB Q8HR [facility] Insulin Aspart (Novolog) 0 unit SQ ACHS [facility] PRN Reason: Protocol Last Admin: 12/09/17 21:48 Dose: 3 unit Magnesium Hydroxide (Milk Of Magnesia) 2,400 mg PO BID PRN PRN Reason: Constipation Metoprolol Tartrate (Lopressor) 50 mg PO BID [facility] Last Admin: 12/09/17 20:22 Dose: 50 mg Miscellaneous Information (Magnesium Per Protocol) 1 each MISCELLANE DAILY PRN ; Protocol PRN Reason: Per Protocol Miscellaneous Information (Phosphorus Per Protocol) 1 each MISCELLANE DAILY PRN ; Protocol PRN Reason: Per Protocol Miscellaneous Information (Potassium Per Protocol) 1 each MISCELLANE DAILY PRN ; Protocol PRN Reason: Per Protocol Ondansetron HCl (Zofran) 4 mg IVP Q6HR PRN PRN Reason: Nausea And Vomiting Pantoprazole Sodium (Protonix) 40 mg PO AC-BRKFST [facility] Last Admin: 12/09/17 08:11 Dose: 40 mg Senna/Docusate Sodium (Senokot-S) 2 each PO HS [facility] Last Admin: 12/09/17 20:21 Dose: 2 each Sodium Chloride (Saline Flush) 10 ml IV BID [facility] Last Admin: 12/09/17 20:23 Dose: 10 ml Home Medications Medication Instructions Recorded Confirmed Type Escitalopram [Lexapro] 10 mg PO HS 02/01/14 11/25/17 History Aspirin EC [Ecotrin Low Dose] 81 mg PO HS 02/19/16 11/25/17 History Atorvastatin [Lipitor] 20 mg PO DAILY #30 tab 09/04/17 11/25/17 Rx Furosemide [Lasix] 20 mg PO DAILY #30 tab 09/04/17 11/25/17 Rx Metoprolol Tartrate [Lopressor] 12.5 mg PO BID 09/17/17 11/25/17 History Amiodarone [Cordarone] 200 mg PO DAILY 10/12/17 11/25/17 History Warfarin [Coumadin] 3 mg PO DAILY #30 tab 10/14/17 11/25/17 Rx Aspirin 325 mg PO ONCE 11/25/17 11/25/17 History Allergies Allergy/AdvReac Type Severity Reaction Status Date / Time codeine AdvReac Hallucinati Verified 11/25/17 15:17 ons Physical Exam Vitals: Vital Signs Temp Pulse Resp BP Pulse Ox 12/09/17 22:00 74 19 86/50 98 12/09/17 21:00 78 32 H 113/63 99 12/09/17 20:00 98.1 F 90 17 140/66 99 12/09/17 19:46 90 12/09/17 19:36 89 12/09/17 19:00 90 18 119/62 96 12/09/17 18:00 82 11 L 104/55 98 12/09/17 17:00 89 24 114/62 98 12/09/17 16:00 86 37 H 113/62 96 12/09/17 15:53 86 12/09/17 15:43 85 12/09/17 15:00 84 17 113/59 98 12/09/17 14:00 84 31 H 111/59 94 L 12/09/17 13:00 80 16 93/62 98 12/09/17 12:00 97.4 F L 75 17 105/57 99 12/09/17 11:34 87 12/09/17 11:17 84 12/09/17 11:00 73 25 H 110/63 98 12/09/17 10:00 73 18 125/57 98 12/09/17 09:00 77 16 113/57 100 12/09/17 08:00 98.3 F 79 20 116/54 100 12/09/17 07:56 79 12/09/17 07:48 77 96 12/09/17 07:00 78 11 L 105/52 100 12/09/17 06:00 70 11 L 95/51 100 12/09/17 05:00 75 12 121/67 100 12/09/17 04:00 98.2 F 69 10 L 108/58 100 12/09/17 03:00 67 18 105/59 100 12/09/17 02:00 68 13 99/52 97 12/09/17 01:00 68 18 91/48 95 12/09/17 00:00 98.3 F 69 15 97/55 100 12/08/17 23:00 72 16 103/54 90 L Intake and Output 12/09/17 12/09/17 12/09/17 06:59 14:59 22:59 Intake Total 50.0 405.0 130 Output Total 400 200 300 Balance -350.0 205.0 -170 Intake: IV 50.0 85.0 Lactated Ringers 1,000 ml 10 @ 20 mls/hr IV .Q24H [facility] Rx#:[id number] Piperacillin-Tazobactam 3 50.0 75.0 .375 gm In Dextrose/Water 1 50ml.bag @ 12.5 mls/hr IVPB Q8HR [facility] Rx#: [id number] Intake, IV Titration 80 130 Amount Piperacillin-Tazobactam 3 50 .375 gm In Dextrose/Water 1 50ml.bag @ 12.5 mls/hr IVPB Q8HR [facility] Rx#: [id number] Sodium Chloride 0.9% 1, 80 80 000 ml @ 20 mls/hr IV . Q24H [facility] Rx#:[id number] Oral 240 Output: Urine 400 200 300 Other: # Voids 2 1 # Bowel Movements 1 Weight 98.2 kg 98.2 kg 98.2 kg Patient Weight 12/10/17 06:59 Weight 98.2 kg Obese 67-year-old woman who has a BiPAP for her shortness of breath. Does appear to be comfortable HEENT: Anicteric conjunctiva are pink and moist nasal mucosa grossly intact without significant lesions, there is no thrush. Oral mucosa is dry but no swapnil lesions could be seen Neck: The neck is supple without significant lymphadenopathy or thyromegaly. Lungs: Symmetrical air entry is noted. There is scattered crackles but no swapnil bronchial sounds Heart: Irregular with an audible S1 and S2 soft S4 no audible murmur no click or rub Chest: The patient's mid sternotomy incision is evaluated, there are multiple open areas along the incision, distal is the largest opening where there is a copious amount of drainage being seen the area is packed and bulky dressings are used to absorb the drainage. There is tenderness the area on exam. There is minimal erythema around the dehisced areas. Abdomen: Obese, Positive bowel sounds soft and nontender without palpable masses or organomegaly. There was no guarding or rebound. Extremities: The upper and lower extremities have evidence of edema harvest site is intact there is some bruising that is noted especially on the left groin area. IV sites are intact. Skin: On the lower back upper buttocks patient has a pressure ulcer stage III measuring 4 x 2 x 0.1 cm, clean at the base. Please refer to the nursing photography for further data. Also evidence of the foreskin tears two each on each buttocks measurements per nursing staff and hydrocolloid applied to all Neuro: Awake alert oriented to person place and time. There are no acute new gross focal sensory motor deficits. Results CBC & Chem 7: 12/09/17 05:00 12/09/17 05:00 Labs: Abnormal Lab Results - Last 24 Hours (Table) 12/09/17 12/09/17 12/09/17 Range/Units 05:00 05:00 05:00 WBC 15.9 H (3.8-10.6) k/uL RBC 3.32 L (3.80-5.40) m/uL Hgb 8.5 L (11.4-16.0) gm/dL Hct 29.5 L (34.0-46.0) % MCHC 28.8 L (31.0-37.0) g/dL RDW 17.9 H (11.5-15.5) % Neutrophils # 13.8 H (1.3-7.7) k/uL PT 16.2 H (9.0-12.0) sec INR 1.8 H (<1.2) ABG pCO2 (35-45) mmHg ABG pO2 (83-108) mmHg ABG HCO3 (21-25) mmol/L ABG Total CO2 (19-24) mmol/L ABG O2 Saturation (94-97) % Potassium 3.4 L (3.5-5.1) mmol/L Chloride 92 L (98-107) mmol/L Carbon Dioxide 39 H (22-30) mmol/L BUN 53 H (7-17) mg/dL Creatinine 1.10 H (0.52-1.04) mg/dL POC Glucose (mg/dL) (75-99) mg/dL AST 52 H (14-36) U/L Total Protein 5.5 L (6.3-8.2) g/dL Albumin 2.5 L (3.5-5.0) g/dL 12/09/17 12/09/17 12/09/17 Range/Units 05:26 17:02 21:22 WBC (3.8-10.6) k/uL RBC (3.80-5.40) m/uL Hgb (11.4-16.0) gm/dL Hct (34.0-46.0) % MCHC (31.0-37.0) g/dL RDW (11.5-15.5) % Neutrophils # (1.3-7.7) k/uL PT (9.0-12.0) sec INR (<1.2) ABG pCO2 57 H (35-45) mmHg ABG pO2 118 H (83-108) mmHg ABG HCO3 37 H (21-25) mmol/L ABG Total CO2 39 H (19-24) mmol/L ABG O2 Saturation 98.2 H (94-97) % Potassium (3.5-5.1) mmol/L Chloride (98-107) mmol/L Carbon Dioxide (22-30) mmol/L BUN (7-17) mg/dL Creatinine (0.52-1.04) mg/dL POC Glucose (mg/dL) 106 H 184 H (75-99) mg/dL AST (14-36) U/L Total Protein (6.3-8.2) g/dL Albumin (3.5-5.0) g/dL Microbiology - Last 24 Hours (Table) 12/07/17 15:40 Gram Stain - Final Chest Wound Culture - Final Serratia marcescens Laboratory Results WBC 15.9 k/uL (3.8-10.6) H 12/09/17 05:00 RBC 3.32 m/uL (3.80-5.40) L 12/09/17 05:00 Hgb 8.5 gm/dL (11.4-16.0) L 12/09/17 05:00 Hct 29.5 % (34.0-46.0) L 12/09/17 05:00 MCV 88.9 fL (80.0-100.0) 12/09/17 05:00 MCH 25.6 pg (25.0-35.0) 12/09/17 05:00 MCHC 28.8 g/dL (31.0-37.0) L 12/09/17 05:00 RDW 17.9 % (11.5-15.5) H 12/09/17 05:00 Plt Count 377 k/uL (150-450) 12/09/17 05:00 Neutrophils % 87 % 12/09/17 05:00 Neutrophils % (Manual) 98 % 12/05/17 04:25 Lymphocytes % 7 % 12/09/17 05:00 Lymphocytes % (Manual) 1 % 12/05/17 04:25 Monocytes % 5 % 12/09/17 05:00 Monocytes % (Manual) 1 % 12/05/17 04:25 Eosinophils % 0 % 12/09/17 05:00 Basophils % 0 % 12/09/17 05:00 Myelocytes % 1 % 12/03/17 04:15 Neutrophils # 13.8 k/uL (1.3-7.7) H 12/09/17 05:00 Neutrophils # (Manual) 26.95 k/uL (1.3-7.7) H 12/05/17 04:25 Lymphocytes # 1.1 k/uL (1.0-4.8) 12/09/17 05:00 Lymphocytes # (Manual) 0.28 k/uL (1.0-4.8) L 12/05/17 04:25 Monocytes # 0.8 k/uL (0-1.0) 12/09/17 05:00 Monocytes # (Manual) 0.28 k/uL (0-1.0) 12/05/17 04:25 Eosinophils # 0.1 k/uL (0-0.7) 12/09/17 05:00 Basophils # 0.0 k/uL (0-0.2) 12/09/17 05:00 Myelocytes # (Manual) 0.17 k/uL (0) H 12/03/17 04:15 Nucleated RBCs 0 /100 WBC (0-0) 12/05/17 04:25 Manual Slide Review Performed 12/05/17 04:25 Polychromasia Present 12/03/17 04:15 Hypochromasia Marked 12/09/17 05:00 Poikilocytosis Slight 12/09/17 05:00 Anisocytosis Slight 12/09/17 05:00 Microcytosis Slight 11/25/17 14:40 Target Cells Present 12/03/17 04:15 PT 16.2 sec (9.0-12.0) H 12/09/17 05:00 INR 1.8 (<1.2) H 12/09/17 05:00 APTT 23.3 sec (22.0-30.0) 11/28/17 11:45 Fibrinogen 334 mg/dL (200-500) 11/26/17 04:22 [facility] 12/09/17 05:26 ABG pH 7.42 (7.35-7.45) 12/09/17 05:26 ABG pCO2 57 mmHg (35-45) H 12/09/17 05:26 ABG pO2 118 mmHg (83-108) H 12/09/17 05:26 ABG HCO3 37 mmol/L (21-25) H 12/09/17 05:26 ABG Total CO2 39 mmol/L (19-24) H 12/09/17 05:26 ABG O2 Saturation 98.2 % (94-97) H 12/09/17 05:26 ABG Base Excess 12.3 mmol/L 12/09/17 05:26 Robbi Test Yes 12/09/17 05:26 FiO2 50 % 12/09/17 05:26 Sodium 138 mmol/L (137-145) 12/09/17 05:00 Potassium 3.4 mmol/L (3.5-5.1) L 12/09/17 05:00 Chloride 92 mmol/L (98-107) L 12/09/17 05:00 Carbon Dioxide 39 mmol/L (22-30) H 12/09/17 05:00 Anion Gap 7 mmol/L 12/09/17 05:00 BUN 53 mg/dL (7-17) H 12/09/17 05:00 Creatinine 1.10 mg/dL (0.52-1.04) H 12/09/17 05:00 Est GFR (MDRD) Af Amer >60 (>60 ml/min/1.73 sqM) 12/07/17 04:00 Est GFR (MDRD) Non-Af >60 (>60 ml/min/1.73 sqM) 12/07/17 04:00 Est GFR (CKD-EPI)AfAm 60 (>60 ml/min/1.73 sqM) 12/09/17 05:00 Est GFR (CKD-EPI)NonAf 52 (>60 ml/min/1.73 sqM) 12/09/17 05:00 Glucose 89 mg/dL (74-99) 12/09/17 05:00 POC Glucose (mg/dL) 184 mg/dL (75-99) H 12/09/17 21:22 POC Glu Die Mechanic ID Freda Swanson 12/09/17 21:22 Calcium 8.4 mg/dL (8.4-10.2) 12/09/17 05:00 Ionized Calcium Bruce 4.9 mg/dL (4.5-5.3) 12/04/17 04:10 Phosphorus 3.7 mg/dL (2.5-4.5) 12/09/17 05:00 Magnesium 2.3 mg/dL (1.6-2.3) 12/09/17 05:00 Total Bilirubin 0.8 mg/dL (0.2-1.3) 12/09/17 05:00 AST 52 U/L (14-36) H 12/09/17 05:00 ALT 45 U/L (9-52) 12/09/17 05:00 Alkaline Phosphatase 76 U/L (38-126) 12/09/17 05:00 Total Protein 5.5 g/dL (6.3-8.2) L 12/09/17 05:00 Albumin 2.5 g/dL (3.5-5.0) L 12/09/17 05:00 Urine Color Yellow 12/04/17 10:00 Urine Appearance Cloudy (Clear) H 12/04/17 10:00 Urine pH 5.5 (5.0-8.0) 12/04/17 10:00 Ur Specific [place] 1.015 (1.001-1.035) 12/04/17 10:00 Urine Protein Trace (Negative) H 12/04/17 10:00 Urine Glucose (UA) Negative (Negative) 12/04/17 10:00 Urine Ketones Negative (Negative) 12/04/17 10:00 Urine Blood Negative (Negative) 12/04/17 10:00 Urine Nitrite Negative (Negative) 12/04/17 10:00 Urine Bilirubin Negative (Negative) 12/04/17 10:00 Urine Urobilinogen <2.0 mg/dL (<2.0) 12/04/17 10:00 Ur Leukocyte Esterase Negative (Negative) 12/04/17 10:00 Urine RBC 7 /hpf (0-5) H 12/04/17 10:00 Urine WBC 1 /hpf (0-5) 12/04/17 10:00 Ur Squamous Epith Cells 8 /hpf (0-4) H 12/04/17 10:00 Urine Bacteria Occasional /hpf (None) H 12/04/17 10:00 Urine Mucus Rare /hpf (None) H 12/04/17 10:00 Heparin-Ind Plt Ab Scrn 0.231 OD (<0.4) 11/29/17 04:50 Blood Type A Positive 12/01/17 07:45 Blood Type Recheck No 12/01/17 07:45 Antibody Screen NEGATIVE 12/01/17 07:45 Crossmatch See Detail 12/01/17 07:45 Transfuse Cryo [id number] 11/26/17 00:39 Transfuse Plasma 11/25/2017 11/25/17 14:55 Transfuse Platelets [id number] 11/25/17 14:55 Spec Expiration Date 12/04/2017 - 2345 12/01/17 07:45 Microbiology 12/07/17 15:40 Chest Gram Stain - Final 12/07/17 15:40 Chest Wound Culture - Final Serratia marcescens 12/04/17 10:00 Urine,Voided Urine Culture - Final Escherichia coli Serratia marcescens 11/26/17 04:00 Sputum Gram Stain - Final 11/26/17 04:00 Sputum Sputum Culture - Final Assessment and Plan (1) Severe mitral regurgitation Current Visit: Yes Status: Chronic Code(s): I34.0 - NONRHEUMATIC MITRAL ( VALVE) INSUFFICIENCY SNOMED Code(s): 60092580 (2) CAD (coronary artery disease) Current Visit: Yes Status: Chronic Code(s): I25.10 - ATHSCL HEART DISEASE OF [place] CORONARY ARTERY W/O ANG PCTRS SNOMED Code(s): 24495870 (3) Acute blood loss as cause of postoperative anemia Current Visit: Yes Status: Acute Code(s): D62 - ACUTE POSTHEMORRHAGIC ANEMIA SNOMED Code(s): 44544186059342186 (4) Pressure ulcer of contiguous region involving back and buttock, stage 3 Current Visit: Yes Status: Acute Code(s): L89.43 - PRESSR ULCER OF CONTIG SITE OF BACK, BUTTOCK AND HIP, STG 3 SNOMED Code(s): 865497497 (5) Sternal wound dehiscence Narrative/Plan: 67-year-old woman presents to Hospital for treatment of her severe mitral irritation. Underwent mitral valve replacement, coronary artery bypass grafting 1, Maze procedure and clipping of the left atrial appendage with a complication of the left ventricular wall tear. The patient has had a very protracted recovery she is now day 14 post operative and is still having difficulty with her respiratory status requiring BiPAP. The patient's nutritional status and underlying comorbidities have complicated her care. She now has evidence of the sternal dehiscence with evidence of gram negatives bacilli being found at the site. There is evidence of urinary tract infection with E. coli and Serratia. This Serratia species is somewhat resistant and consequently we'll alter the current antimicrobial therapy from Zosyn to meropenem to ensure coverage for other potential pathogens that are resistant that could be in the sternal wound while we await cultures. The patient will be going to the operating room tomorrow for debridement and wound VAC placement. The cultures were further direct the overall course of antibiotics. Urinary infection appears to be doing somewhat better. The patient fortunately is comfortable and doing well with her BiPAP. Current Visit: Yes Status: Acute Code(s): T81.32XA - DISRUPTION OF INTERNAL OPERATION (SURGICAL) WOUND, NEC, INIT SNOMED Code(s): 65366962
[2017-12-09] MEDS: MEROPENEM 1 GM in SODIUM CHLORIDE 0.9% 100 ML IVPB SCH (23:32)
[2017-12-10 04:35] LABS: Anisocytosis Slight; Basophils % (A) 0 %; Eosinophils # (A) 0.1 k/uL (0-0.7); Eosinophils % (A) 0 %; HCT 30.1 % (34.0-46.0); Hypochromasia Marked; Lymphocytes # (A) 0.5 k/uL (1.0-4.8); Lymphocytes % (A) 4 %; MCH 26.4 pg (25.0-35.0); MCHC 29.9 g/dL (31.0-37.0); MCV 88.2 fL (80.0-100.0); Mean Platelet Volume 7.6; Monocytes # (A) 0.7 k/uL (0-1.0); Monocytes % (A) 5 %; Neutrophils # (A) 14.2 k/uL (1.3-7.7); Neutrophils % (A) 91 %; Platelet Count 302 k/uL (150-450); Poikilocytosis Slight; RBC 3.42 m/uL (3.80-5.40); RDW 17.6 % (11.5-15.5); WBC 15.7 k/uL (3.8-10.6)
[2017-12-10 04:46] LABS: INR 2.2 (<1.2); Prothrombin Time 20.3 sec (9.0-12.0)
[2017-12-10 05:01] LABS: Albumin 2.2 g/dL (3.5-5.0); Calcium 8.3 mg/dL (8.4-10.2); Magnesium 2.3 mg/dL (1.6-2.3); Phosphorus 3.4 mg/dL (2.5-4.5); Potassium 3.4 mmol/L (3.5-5.1); Total Bilirubin 0.7 mg/dL (0.2-1.3); Total Protein 5.2 g/dL (6.3-8.2)
[2017-12-10] MEDS: MEROPENEM 1 GM in SODIUM CHLORIDE 0.9% 100 ML IVPB SCH ×3 (07:14→16:27)
[2017-12-10 07:31] LABS: Glucose,Whole Blood 87 mg/dL (75-99)
[2017-12-10] MEDS: IPRATROPIUM-ALBUTEROL 3 ML NEB INHALATION SCH ×4 (07:37→20:50)
[2017-12-10] MEDS: BUDESONIDE 1 MG/2 ML NEBU INHALATION SCH ×2 (07:38→20:49)
--- NOTE | 2017-12-10 08:10 | XR ---
EXAMINATION TYPE: XR chest 1V portable DATE OF EXAM: 12/10/2017 COMPARISON: Prior chest x-ray 12/09/2017 HISTORY: Status post cardiac surgery TECHNIQUE: Single frontal view of the chest is obtained. FINDINGS: Postop changes are stable, the heart remains enlarged. Left-sided PICC line ends overlying cardiac leads again noted. No evident pneumothorax. Basilar density obscures the left heart border a nd hemidiaphragm. Central vascularity and interstitium mildly increased as on prior. IMPRESSION: Similar findings, correlate for congestive heart failure, volume overload, left pleural effusion and associated atelectasis versus edema, correlate to exclude pneumonia, follow-up recommend ed.
[2017-12-10] MEDS: POTASSIUM CHLORIDE 10 MEQ in SODIUM CHLORIDE 0.9% 100 ML IV SCH ×2 (08:18→09:26)
[2017-12-10] MEDS: METOPROLOL TARTRATE 50 MG TAB PO SCH ×2 (08:42→21:14)
[2017-12-10] MEDS: AMIODARONE 200 MG TAB PO SCH ×2 (08:43→21:13)
--- NOTE | 2017-12-10 09:13 | P.PN ---
<Yuliet Lopez M - Last Filed: 12/10/17 09:02> Subjective Progress Note Date: 12/10/17 Principal diagnosis: Severe mitral regurgitation, coronary artery disease, status post mitral valve replacement, bypass grafting 1, modified maze procedure and ligation of left atrial appendage Status post 1 vessel bypass grafting and mitral valve replacement. Progress note dated 11/29/2017 This is a 67-year-old female status post one-vessel bypass grafting and mitral valve replacement. She apparently had surgery on the . Today is postop day #3. The patient currently remains on the mechanical ventilator. Her vent settings are the assist control mode rate of 1210 of I am is 550 FiO2 50% PEEP of 5. Arterial blood gases show a PaO2 of 135 a PaCO2 of 36 and a pH of 7.47. I'm to make a few changes including bumping the rate up from 12 to 20, and decreasing the tidal volume from 550 down to 400, and dropping the FiO2 from 50- 40%. The patient may not be weaned of old low because she remains on insulin drip at 1 unit per hour, Primacor 0.2 mics per kilogram per minute, norepinephrine at 2 mics per minute, half normal saline at 30 mL an hour and propofol at 25 g kilogram per minute. Chest x-rays consistent with fluid overload but bibasilar infiltrates and small effusions and microbiology is negative. The rest of the labs medications and x-rays are all reviewed. Progress note dated 11/30/2017 This is a 67-year-old female status post one-vessel bypass grafting and mitral valve replacement. She had surgery on the . She is postop day #4. She remains on mechanical ventilator. Yesterday, her chest x-ray showed evidence of fluid overload. She did get some diuretics. Today's chest x-ray still shows evidence of fluid overload although it might be slightly improved. She's currently still on the mechanical ventilator on the assist control mode, rate of 26, tidal volume 400, PEEP of 8, FiO2 40%. The patient's arterial blood gases show a PaO2 of 94 and pH 7.46 in a PaCO2 of 41. The patient will get a daily eruption of sedation and a spontaneous breathing trial. The patient remains on norepinephrine at 3 mcg/m, propofol at 30 mics per kilogram per minute, Primacor 0.2 mics per kilogram per minute, half normal saline IV at 15 mL an hour and vital 1.2 at 60 with a goal of 60 mL an hour. The patient failed her spontaneous breathing trial yesterday very quickly, and afterwards, she became dyssynchronous with the ventilator and I had to bump up the PEEP level to 8 and increase her respiratory rate to 26. We also dropped the tidal volume down to 400. She is much more in synchrony today. Progress note dated 12/01/2017 This is a 67-year-old female who is postop day #5, status post one-vessel bypass grafting and mitral valve replacement. She also has a history of postoperative respiratory failure with failure to wean. She was extubated yesterday though. Chest x-ray has evidence of fluid overload which actually is improved. In addition, the patient had acute blood loss anemia requiring blood transfusion postsurgically, hypertension severe mitral regurgitation left subclavian stenosis paroxysmal atrial fibrillation GI bleed and obesity. Yesterday, post extubation we gave the patient 1 shot of Solu-Medrol 60 mg IV push and also put her on BiPAP at 14/5 and 40%. Chest x-ray does show improvement. Today her hemoglobin is below 7 and she'll receive 1 unit of blood followed by some Lasix IV. In addition, I may add on some IV site Medrol and a smaller dose than normal and also some Pulmicort 1 mg twice a day. Progress note dated 12/02/2017 67-year-old female who is postop day #6 status post single-vessel bypass grafting and mitral valve replacement. The patient has been doing very well the last day and a half to 2 days. She has a history of postoperative respiratory failure and initially, failure to wean. She was extubated 2 days ago. She has had to use of BiPAP on and off since that time. She did receive 1 unit of PRBCs yesterday followed by some Lasix 40 mg IV push. Her chest x- ray my opinion still so-so some fluid overload with a small pool of pleural effusion. Other than that, the patient seemed be doing relatively well. She has a history of hypertension severe mitral regurgitation blood loss anemia following surgery left subclavian stenosis paroxysmal atrial fibrillation GI bleed and obesity. This morning, she'll come off the BiPAP and go back to nasal O2. She prefers a nasal O2 over the BiPAP device. She may have had an episode of aspiration last night. Speech pathology was consulted. In addition , I did check for a DVT in the right upper extremity and the Doppler was negative. Progress note dated 12/03/2017 67-year-old female postop day #7, status post single-vessel bypass grafting and mitral valve replacement. The patient has been doing relatively well although this morning she was a bit more short of breath. Chest x-ray does show some fluid overload. She's been on and off of BiPAP. This morning she was on O2 nasal cannula at 3 L. The cardiothoracic practitioner thought she was a bit more short of breath I went and saw her. I looked at her chest x-ray. We asked her to go back on BiPAP at 14 and 5 and 40% and we also gave her Lasix 60 mg IV push. She seemed be doing a lot better now. She's not receiving any IV fluids. Chest x-ray does show fluid overload. Again the Lasix was given this morning. She was a bit to This morning. Breathing about 25 times a minute. No swapnil distress. In addition, she has a history of hypertension severe mitral regurgitation blood loss anemia following her open heart surgery, left subclavian artery stenosis paroxysmal atrial fibrillation GI bleed and obesity. Progress note dated 12/04/2017 67-year-old female, postop day #8, status post single-vessel bypass grafting and mitral valve replacement. The patient's overall situation is been reasonable. She seemed to do do better while she is on BiPAP therapy. When she is a bit more short of breath, she does poorly when she's not on BiPAP. Chest x-ray shows some fluid overload. She has some cephalization to the upper lobes. In addition, she is either consolidation atelectasis or infiltrates in the lower lobes. In addition, probably has some pleural effusions bilaterally. Currently she is on 7 L high flow. She's not receiving any IV fluids. When she is on BiPAP, she is on settings of 14 and 5 and 40%. She did receive some Lopressor for atrial fibrillation with RVR. Cardiothoracic surgery ask about antibiotics for possible pneumonia. Is not unreasonable to add some antibiotics to her regimen. She may have some pneumonia hiding in the lung spaces bilaterally. She isn't producing any phlegm. There's been no fever or chills. Other than that, she is doing reasonably well. Labs x-rays a medications are all reviewed. Personal dated 12/05/2017 The patient is seen again today in follow-up in the intensive care unit. This is postoperative day #9. She remains quite BiPAP dependent. Settings 14/5 at 40% FiO2. She is quite short of breath with any minimal exertion. Her chest x- ray continues to show evidence of fluid volume overload with bilateral effusions right greater than left. She is status post 11 units of packed red blood cells, 4 units of fresh frozen plasma, 2 units of platelets and 1 of pheresis platelets, 20 units 20 cryoprecipitate and remains in a significant positive balance overall. He is also had ongoing issues with atrial fibrillation/flutter with rapid ventricular rates. White count 27.5. Hemoglobin 9.1. Platelet count is 287. INR 1.6. Creatinine 0.73. She remains on bronchodilators, Pulmicort inhalations, IV Solu-Medrol. Antibiotics in the form of Zosyn. She is on amiodarone, digoxin, beta blockers and warfarin. On 12/06/2017 patient seen again in the intensive care unit, she remains on BiPAP with pressures of 14/5, and FiO2 40%. O2 sat is around 97%. She is tolerating it well. She remains in A. fib with a rate of 110 to 115 BPM, hemodynamically stable. Lung sounds reveal diminished lung sounds bilaterally. Chest x-ray from this morning was reviewed and showed prominent interstitium and central vascularity with bibasilar increased density compatible with bilateral pleural effusions. Patient appears to be fairly comfortable at rest, oxygenating well on FiO2 40%. Her INR today is 2.2, she is awaiting cardioversion on 12/07/2017. After discussion with cardiothoracic surgery, he was decided to wait with thoracentesis until after the cardioversion, because the patient is currently sufficiently anticoagulated for the procedure. We'll attempt to diurese with Lasix and Zaroxolyn. Patient remains on oral amiodarone , digoxin for rate control. Remains on Coumadin anticoagulant coagulation. Zosyn, IV Solu-Medrol 31 g every 8 hours, Pulmicort, and DuoNeb nebulized treatments. On 12/07/2017 patient is seen post synchronized cardioversion for atrial fibrillation with RVR. Patient was successfully cardioverted with 360 J 1. Currently in sinus rhythm with a rate of 87 BPM. Hemodynamically stable, BP is 10/07/1955, she remains on BiPAP support, with pressures of 14/5, and FiO2 of 40 %. She is not on any maintenance drips, IV LR infusing at 20 ML per hour. Lung sounds are positive for scattered rhonchi, good air entry bilaterally, no wheezes noted. Today's chest x-ray shows stable diffuse bilateral areas of infiltrate and pleural effusions. Patient has been diuresed with IV Lasix of 40 mg every 12 hours in addition to Zaroxolyn 5 mg daily. Today's lab work shows WBC trending down, down to 17.0 from 22.6, hemoglobin is stable at 9.4, sodium is 138, potassium is 3.8, chloride is 95, CO2 is 40, BUN is 54, creatinine is 0.80. Urine culture is positive for E. coli and Serratia marcescens both of which are sensitive to Zosyn, which the patient has been on since 12/04/2017. Patient continues on IV steroids, DuoNeb, Pulmicort. She remains anticoagulated with warfarin, INR today is at 3.8. On 12/08/2017 patient seen again in the intensive care unit, currently off the BiPAP on 6 L per nasal cannula eating breakfast. Her BiPAP support for most of the day yesterday and at night. Still becomes quite dyspneic with any exertion , even getting on and off the bedpan. Lung sounds are diminished over left lower lobe, there are some scattered rhonchi bilaterally. Today's chest x-ray shows persistence of bibasilar densities, prominence of central vascularity, and blunting of the left costophrenic angle, variable with left pleural effusion. There is a area of opacity in the left lower lobe that could possibly represent atelectasis, versus pneumonia versus pulmonary edema. There is little improvement on the chest x-ray or level of dyspnea despite the intensive diuresis. Patient is in -3497 mL fluid balance over the last 24 hours. Bilateral lower extremity and upper extremity edema has improved. Her weight is down almost 4 kg in the last 24 hours. White count continues to trend down, down to 16.4 on today's lab work, hemoglobin is 9.3, INR is 4.8. Patient received 2 g of vitamin K IV this morning. Patient continues on Zosyn, for evidence of E. coli and Serratia marcescens in the urine culture that are both sensitive to Zosyn. Midsternal incision has started to open, and is draining copious amount of serosanguineous drainage in the lower portion of the midsternal incision. The wound is packed per CT surgery, and covered with dressings. Patient was cardioverted successfully yesterday, she remains in sinus rhythm with a controlled rate. She remains afebrile. On 12/09/2017 patient seen in follow-up. She is currently on 4 L per nasal cannula, with O2 sat at 96%. Remains mostly BiPAP dependent with pressures 14/5 , and FiO2 of 60%. Becomes fatigued and dyspneic, and can only tolerate the nasal cannula trials for meals and short periods of time during the day. Incentive spirometer effort is 750. Chest x-ray today shows improvement in the appearance of left lower lobe opacity, consistent with left pleural effusion. CT from 12/08/2017 showed sternal dehiscence, 2.7 cm wide sternal defect containing mixed air, fluid and packing material. There was moderate to large pericardial effusion predominantly along the left side of the heart. There was no significant right atrial dilatation to clearly indicate tamponade physiology. Moderate left pleural effusion with adjacent complete left lower lobe are and inferior lingular collapse. Yesterday patient was developing volume contraction alkalosis secondary to intensive diuresis. Her diuretics have been discontinued, patient still remains in negative fluid balance, -1300 over the last 24 hours. Today's blood gases show improvement, pH is 7.42, pCO2 57, pO2 of 118, this was done and FiO2 of 50%. Patient's white count is 15.9, hemoglobin is 8.5, INR is 1.8, sodium is 138, potassium is 3.4, CO2 is 39, BUN is 53, and creatinine is 1.10. Patient continues on Zosyn, urine culture from 12/04/2017 showed E. coli and Serratia marcescens, sternal wound culture is positive gram-negative bacilli. Patient remains in normal sinus rhythm at a rate of 70 BPM. Remains hemodynamically stable. Denies any acute distress. She is tolerating oral intake, appetite is fair. Patient is nonoliguric. Lung sounds are positive for a few scattered rales over left upper lobe, diminished at bilateral bases. On 12/10/2017 patient seen in follow-up in intensive care unit. Currently on 4 L per nasal cannula, with a pulse ox of 96%. She did wear the BiPAP last night , at 14/5 and FiO2 of 60%. Lung sounds are positive for bibasilar crackles, which seem improved from yesterday's exam. Incentive spirometer effort today is 500-750. Diuretics were discontinued the day before yesterday in view of patient developing volume contraction metabolic alkalosis. On today's blood work sodium is 136, potassium is 3.4, chloride is 95, CO2 is 40, BUN is 44, and creatinine is 1.0. There is improvement in the renal function noted. WBC is 15.7, hemoglobin is 9.0, a nurse 2.2. Today's chest x-ray showed prominent central vascularity and mildly increased interstitium compatible with volume overload, left pleural effusion and associated atelectasis. Patient is not requiring any vasopressor support. Urine culture was positive for E. coli and Serratia marcescens, sternal wound culture is positive for Serratia marcescens. ID is on consult, Zosyn was discontinued, and meropenem was started last night. Midsternal incision is draining large amount of serosanguineous drainage. Patient is scheduled for sternal wound debridement today with placement of wound VAC at 9:[address] Back. Objective - Vital Signs Vital signs: Vital Signs Temp 98.3 F 12/10/17 08:29 Pulse 89 12/10/17 08:29 Resp 22 12/10/17 08:29 BP 100/69 12/10/17 08:29 Pulse Ox 96 12/10/17 08:29 Intake & Output 12/09/17 12/10/17 12/10/17 18:59 06:59 18:59 Intake Total 535.0 180 20 Output Total 350 300 Balance 185.0 -120 20 Weight 98.2 kg 98.6 kg Intake: IV 85.0 180 20 Lactated Ringers 1,000 ml 10 @ 20 mls/hr IV [facility] Rx#:[id number] Piperacillin-Tazobactam 3 75.0 .375 gm In Dextrose/Water 1 50ml.bag @ 12.5 mls/hr IVPB Q8HR [facility] Rx#: [id number] Sodium Chloride 0.9% 1, 180 20 000 ml @ 20 mls/hr IV . Q24H [facility] Rx#:[id number] Intake, IV Titration 210 Amount Piperacillin-Tazobactam 3 50 .375 gm In Dextrose/Water 1 50ml.bag @ 12.5 mls/hr IVPB Q8HR [facility] Rx#: [id number] Sodium Chloride 0.9% 1, 160 000 ml @ 20 mls/hr IV . Q24H [facility] Rx#:[id number] Oral 240 Output: Urine 350 300 Other: # Voids 1 0 0 # Bowel Movements 1 ABP, PAP, CO, CI - Last Documented Arterial Blood Pressure 110/60 Pulmonary Artery Pressure 38/33 Cardiac Output 5.8 Cardiac Index 2.9 - Exam GENERAL EXAM: Alert, pleasant, 67-year-old white female, in no apparent distress , currently on 4 L per high flow nasal cannula, wears BiPAP most of the time HEAD: Normocephalic. EYES: Normal reaction of pupils, equal size. NOSE: Clear with pink turbinates. THROAT: No erythema or exudates. NECK: No masses, no JVD. CHEST: No chest wall deformity. Midsternal incision has started to open, packed in the distal portion of the incision, there is a large amount of serosanguineous drainage at the distal end of the incision. The incision is covered with the dressing. Heart Hugger is in place LUNGS: Equal air entry with scattered rales over left upper lobe, diminished over left lower lobe CVS: S1 and S2, irregular with no audible murmur, irregular rhythm. ABDOMEN: No hepatosplenomegaly, normal bowel sounds, no guarding or rigidity. SPINE: No scoliosis or deformity SKIN: No rashes CENTRAL NERVOUS SYSTEM: No focal deficits, tone is normal in all 4 extremities. EXTREMITIES: There is no peripheral edema. No clubbing, no cyanosis. Peripheral pulses are intact. Left-sided PICC line present - Labs CBC & Chem 7: 12/10/17 04:15 12/10/17 04:15 Labs: Abnormal Lab Results - Last 24 Hours (Table) 12/09/17 12/09/17 12/10/17 Range/Units 17:02 21:22 04:15 WBC 15.7 H (3.8-10.6) k/uL RBC 3.42 L (3.80-5.40) m/uL Hgb 9.0 L (11.4-16.0) gm/dL Hct 30.1 L (34.0-46.0) % MCHC 29.9 L (31.0-37.0) g/dL RDW 17.6 H (11.5-15.5) % Neutrophils # 14.2 H (1.3-7.7) k/uL Lymphocytes # 0.5 L (1.0-4.8) k/uL PT (9.0-12.0) sec INR (<1.2) Sodium (137-145) mmol/L Potassium (3.5-5.1) mmol/L Chloride (98-107) mmol/L Carbon Dioxide (22-30) mmol/L BUN (7-17) mg/dL POC Glucose (mg/dL) 106 H 184 H (75-99) mg/dL Calcium (8.4-10.2) mg/dL AST (14-36) U/L Total Protein (6.3-8.2) g/dL Albumin (3.5-5.0) g/dL 18 12/10/17 Range/Units 04:15 04:15 WBC (3.8-10.6) k/uL RBC (3.80-5.40) m/uL Hgb (11.4-16.0) gm/dL Hct (34.0-46.0) % MCHC (31.0-37.0) g/dL RDW (11.5-15.5) % Neutrophils # (1.3-7.7) k/uL Lymphocytes # (1.0-4.8) k/uL PT 20.3 H (9.0-12.0) sec INR 2.2 H (<1.2) Sodium 136 L (137-145) mmol/L Potassium 3.4 L (3.5-5.1) mmol/L Chloride 95 L (98-107) mmol/L Carbon Dioxide 40 H* (22-30) mmol/L BUN 44 H (7-17) mg/dL POC Glucose (mg/dL) (75-99) mg/dL Calcium 8.3 L (8.4-10.2) mg/dL AST 46 H (14-36) U/L Total Protein 5.2 L (6.3-8.2) g/dL Albumin 2.2 L (3.5-5.0) g/dL Microbiology - Last 24 Hours (Table) 12/07/17 15:40 Gram Stain - Final Chest Wound Culture - Final Serratia marcescens Assessment and Plan Plan: Assessment: #1. Severe mitral valve regurgitation, status post mitral valve replacement, with Maze procedure, left atrial appendage exclusion, and one-vessel bypass, postop day 14 #2. Postoperative respiratory failure with failure to wean, with extubation occurring on 11/30/2017, currently on BiPAP support with pressures 14 over 4, FiO2 60% #3. Chest x-ray evidence of fluid overload, bilateral pleural effusions right greater than left, patient has been intensively diuresed, and on today's chest x -ray there is improvement in the appearance of left pleural effusion #4. Metabolic alkalosis most likely related to volume contraction alkalosis secondary to IV diuresis, patient received Diamox, improved #5. Midsternal wound dehiscence, midsternal wound culture is positive for Serratia marcescens, patient was placed on meropenem #5. acute urinary tract infection, urine culture positive for E. coli and Serratia marcescens, was initially treated with Zosyn, now on meropenem #6. Acute blood loss anemia requiring blood transfusion, today's hemoglobin is 9.0 #7. History of hypertension #8. History of severe mitral regurgitation #9. History of left subclavian stenosis #10. Paroxysmal atrial fibrillation, status post successful cardioversion, patient remains in normal sinus rhythm #11. History of GI bleed #12. Obesity #13. Possible aspiration with aspiration pneumonia, currently on meropenem Plan: Continue BiPAP support as needed. Diuretics remain on hold, metabolic alkalosis is improved, renal profile is improving. Correct hypokalemia per protocol. Continue meropenem. Into new nebulized treatments, incentive spirometer. Patient is scheduled for sternal wound debridement and wound VAC placement today with Dr. Back. I performed a history & physical examination of the patient and discussed their management with my nurse practitioner, Yuliet Lopez. I reviewed the nurse practitioner's note and agree with the documented findings and plan of care. Lung sounds are positive for scattered rhonchi bilaterally, with scattered rales over bilateral bases. The findings and the impression was discussed with the patient. I attest to the documentation by the nurse practitioner. Time with Patient: Greater than 30 <Cass Ledbetter - Last Filed: 12/10/17 18:25> Objective - Vital Signs Vital signs: Vital Signs Temp 97.7 F 12/10/17 16:30 Pulse 116 H 12/10/17 18:00 Resp 20 12/10/17 18:00 BP 72/50 12/10/17 18:00 Pulse Ox 100 12/10/17 18:00 Intake & Output 12/09/17 12/10/17 12/10/17 18:59 06:59 18:59 Intake Total 535.0 180 2002.881 Output Total 350 300 460 Balance 185.0 -120 1542.881 Weight 98.2 kg 98.6 kg Intake: IV 85.0 180 481 Lactated Ringers 1,000 ml 10 @ 20 mls/hr IV .Q24H [facility] Rx#:[id number] Piperacillin-Tazobactam 3 75.0 .375 gm In Dextrose/Water 1 50ml.bag @ 12.5 mls/hr IVPB Q8HR [facility] Rx#: [id number] Sodium Chloride 0.9% 1, 180 180 000 ml @ 20 mls/hr IV . Q24H [facility] Rx#:[id number] Intake, IV Titration 210 1228.881 Amount Albumin Human 5% 250 ml 250 In Empty Bag 1 bag @ 250 mls/hr IVPB ONCE ONE Rx#: [id number] Albumin Human 5% 250 ml 250 In Empty Bag 1 bag @ 250 mls/hr IVPB [facility]CE [facility] Rx#: [id number] Amiodarone 450 mg In 328.881 Dextrose 5% in Water 250 ml @ 1 MG/MIN 33.33 mls/ hr IV .Q7H31M [facility] Rx#: [id number] Meropenem 1 gm In Sodium 200 Chloride 0.9% 100 ml @ 100 mls/hr IVPB Q8HR [facility] Rx#:[id number] Piperacillin-Tazobactam 3 50 .375 gm In Dextrose/Water 1 50ml.bag @ 12.5 mls/hr IVPB Q8HR [facility] Rx#: [id number] Potassium Chloride 10 meq 200 In Sodium Chloride 0.9% 100 ml @ 100 mls/hr IV Q1H [facility] Rx#:[id number] Sodium Chloride 0.9% 1, 160 000 ml @ 20 mls/hr IV . Q24H [facility] Rx#:[id number] Oral 240 Blood Product 293 Ffp 24 Cpd Unit 0 [id number] Ffp 24 Cpd Unit 293 [id number] Output: Chest Tube Drainage 110 Pleural Catheter Left 110 Drainage 150 Anterior Medial Chest 150 Urine 350 300 100 Estimated Blood Loss 100 Other: # Voids 1 0 1 # Bowel Movements 1 ABP, PAP, CO, CI - Last Documented Arterial Blood Pressure 110/60 Pulmonary Artery Pressure 38/33 Cardiac Output 5.8 Cardiac Index 2.9 - Labs CBC & Chem 7: 12/10/17 04:15 12/10/17 04:15 Labs: Abnormal Lab Results - Last 24 Hours (Table) 12/09/17 12/10/17 12/10/17 Range/Units 21:22 04:15 04:15 WBC 15.7 H (3.8-10.6) k/uL RBC 3.42 L (3.80-5.40) m/uL Hgb 9.0 L (11.4-16.0) gm/dL Hct 30.1 L (34.0-46.0) % MCHC 29.9 L (31.0-37.0) g/dL RDW 17.6 H (11.5-15.5) % Neutrophils # 14.2 H (1.3-7.7) k/uL Lymphocytes # 0.5 L (1.0-4.8) k/uL PT 20.3 H (9.0-12.0) sec INR 2.2 H (<1.2) Sodium (137-145) mmol/L Potassium (3.5-5.1) mmol/L Chloride (98-107) mmol/L Carbon Dioxide (22-30) mmol/L BUN (7-17) mg/dL POC Glucose (mg/dL) 184 H (75-99) mg/dL Calcium (8.4-10.2) mg/dL AST (14-36) U/L Total Protein (6.3-8.2) g/dL Albumin (3.5-5.0) g/dL 03/09/18 03/09/18 Range/Units 04:15 17:22 WBC (3.8-10.6) k/uL RBC (3.80-5.40) m/uL Hgb (11.4-16.0) gm/dL Hct (34.0-46.0) % MCHC (31.0-37.0) g/dL RDW (11.5-15.5) % Neutrophils # (1.3-7.7) k/uL Lymphocytes # (1.0-4.8) k/uL PT (9.0-12.0) sec INR (<1.2) Sodium 136 L (137-145) mmol/L Potassium 3.4 L (3.5-5.1) mmol/L Chloride 95 L (98-107) mmol/L Carbon Dioxide 40 H* (22-30) mmol/L BUN 44 H (7-17) mg/dL POC Glucose (mg/dL) 149 H (75-99) mg/dL Calcium 8.3 L (8.4-10.2) mg/dL AST 46 H (14-36) U/L Total Protein 5.2 L (6.3-8.2) g/dL Albumin 2.2 L (3.5-5.0) g/dL Microbiology - Last 24 Hours (Table) 12/10/17 10:40 Fungal Culture - Preliminary Chest 12/10/17 10:40 Wound Culture - Preliminary Chest 12/10/17 10:40 Anaerobic Culture - Preliminary Chest 12/10/17 10:45 Acid Fast Bacilli Culture - Preliminary Chest 12/10/17 10:45 Anaerobic Culture - Preliminary Chest 12/10/17 10:45 Fungal Culture - Preliminary Chest 12/10/17 10:45 Tissue Culture - Preliminary Chest 12/07/17 15:40 Gram Stain - Final Chest Wound Culture - Final Serratia marcescens Assessment and Plan Plan: This is a joint evaluation done with the nurse practitioner. The patient is postop day #14. The patient will be taken to the operating room for wound debridement. She is growing Serratia from her chest wound. She is currently on IV Merrem. The patient was seen by infectious disease. The plan is to take her to the operating room for debridement and she'll be brought back. She may possibly benefit from a left chest tube insertion also. We'll continue to follow. She'll be brought back to the ICU following her procedure.
[2017-12-10] MEDS ORDERED: SODIUM CHLORIDE 0.9% 1,000 ML IV ONE (09:44)
[2017-12-10] MEDS ORDERED: NEOSTIGMINE 1 MG/ML 10 ML VIAL ONE (09:45)
[2017-12-10] MEDS ORDERED: ROCURONIUM BROMIDE 10 MG/ML 10 ML VIAL IV ONE (09:45)
[2017-12-10] MEDS ORDERED: fentaNYL (PF) 50 MCG/ML 2 ML AMP ONE (09:45)
[2017-12-10] MEDS ORDERED: GLYCOPYRROLATE 0.2 MG/ML 2 ML VIAL ONE (09:45)
[2017-12-10] MEDS ORDERED: PROPOFOL 10 MG/ML 20 ML VIAL IV ONE (09:45)
[2017-12-10] MEDS ORDERED: SUCCINYLCHOLINE CHLORIDE 100 MG/5 ML SYR IV ONE (09:45)
[2017-12-10] MEDS ORDERED: PHENYLEPHRINE-0.9% NACL SYG 1 MG/10 ML SYRINGE ONE (09:45)
[2017-12-10] MEDS ORDERED: MIDAZOLAM 2 MG/2 ML VIAL ONE (09:45)
[2017-12-10] MEDS ORDERED: ceFAZolin 3,000 MG in SODIUM CHLORIDE 0.9% IRRIGATIO 3,000 ML IRRIGATION ONE (10:08)
[2017-12-10] MEDS: INSULIN ASPART 100 UNIT/ML 1 ML 10 ML VIAL SQ SCH ×4 (10:38→21:26)
--- NOTE | 2017-12-10 12:09 | OP ---
OPERATIVE REPORT DATE OF SURGERY: 12/10/2017 PREOPERATIVE DIAGNOSIS: Sternal wound dehiscence. POSTOPERATIVE DIAGNOSIS: Sternal wound dehiscence. PROCEDURE: Sternal wound debridement. SURGEON: Dion Back MD. FRYER LINE HELPER: MIKAYLA Kang. ANESTHESIA: General. SPECIMEN: 1. Sternum. 2. Sternal wound soft tissue. EBL: 100 mL. INDICATION: The patient is a 67-year-old female who underwent mitral valve replacement, coronary artery bypass, and MAZE procedure recently. Her postoperative course has been complicated. She developed drainage from the sternal wound incision earlier this week. CT scan of the chest revealed sternal dehiscence. Sternal wound debridement was recommended. The risks, benefits, and alternatives of this procedure was discussed with the patient. All questions were answered. Consent was obtained. PROCEDURE IN DETAIL: The patient was taken to the operating room and placed supine on the operating table. After induction of general anesthesia, she was prepped and draped in the usual sterile fashion. Her recent CT scan of the chest revealed a moderate-sized left pleural effusion. I elected to place a chest tube in the OR. An incision was made beneath the left breast inframammary crease. Dissection was taken down through the soft tissue. The left pleural space was entered bluntly. A 32-Arabic chest tube was placed directed in the left pleural space. Return of serosanguineous fluid was noted. Next, attention was turned to the sternal wound. The remainder of the sternal wound was opened. All suture material was removed. The soft tissue had fibrinous exudate and was debrided using a knife. Upon visualizing the sternum itself, it appeared to have pulled apart. All of the wires had pulled through. 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 All 8 sternal wires were then removed. Using a rongeur and curette, the sternal edges were debrided back to viable tissue. The left side of sternum required more debridement than the right side. The heart was visualized. It was quite adhered to the diaphragmatic surface. There was no foul odor from the wound. There were no undrained fluid collections. There was no purulent fluid noted. The wound was then copiously irrigated using a [employer] dry cleaner apprentice and antibiotic solution. Hemostasis was assured. The final measurements of the wound were 17 cm in length and 10 cm in width. Two white VAC sponges were then placed sterilely in the wound and attached to suction. The patient appeared to tolerate the procedure well. She was extubated at the completion of the case and returned to the ICU. The plan is to have the wound evaluated by a plastic surgeon for muscle flap closure. ELAN / MICHELLE: [id number] / MTDD
[2017-12-10 12:16] LABS: Glucose,Whole Blood 94 mg/dL (75-99)
--- NOTE | 2017-12-10 12:33 | XR ---
EXAMINATION TYPE: XR chest 1V portable DATE OF EXAM: 12/10/2017 COMPARISON: Prior chest 12/10/2017 and earlier time HISTORY: Status post sternal debridement TECHNIQUE: Single frontal view of the chest is obtained. FINDINGS: Left-sided chest tube placement has been performed in the interval. No other significant i nterval change. No pneumothorax. Heart remains enlarged. IMPRESSION: Postop changes as described.
[2017-12-10] MEDS ORDERED: DEXTROSE 5% IN WATER 100 ML with AMIODARONE 150 MG IV ONE ×2 (12:57→15:12)
[2017-12-10] MEDS ORDERED: ALBUMIN HUMAN 5% 250 ML in EMPTY BAG 1 BAG IVPB STA (12:57)
[2017-12-10] MEDS ORDERED: AMIODARONE 450 MG in DEXTROSE 5% IN WATER 250 ML IV SCH ×2 (13:00)
[2017-12-10] MEDS: ATORVASTATIN 40 MG TAB PO SCH (13:15)
[2017-12-10] MEDS: PANTOPRAZOLE 40 MG TABLET PO SCH (13:15)
[2017-12-10] MEDS: ASPIRIN 81 MG PO SCH (13:15)
[2017-12-10] MEDS: HYDROcodone/APAP 5-325MG 1 EACH TAB PO PRN ×2 (14:06→17:48)
[2017-12-10] MEDS ORDERED: ALBUMIN HUMAN 5% 250 ML in EMPTY BAG 1 BAG IVPB ONE (16:07)
[2017-12-10] MEDS: HEPARIN SODIUM,PORCINE 5,000 UNIT/ML 1 ML VIAL SQ SCH (16:50)
[2017-12-10 17:23] LABS: Glucose,Whole Blood 149 mg/dL (75-99)
--- NOTE | 2017-12-10 19:27 | PN ---
PROGRESS NOTE DATE OF SERVICE: 12/10/2017 Patient remains in ICU, is on 4 L of oxygen per nasal cannula. Remains on BiPAP. VITAL SIGNS: Temperature 98.3, pulse 89, respiration 22, blood pressure 100/69, O2 saturation 96%. GENERAL PHYSICAL EXAMINATION: Patient is sleepy, but arousable, in no acute distress. HEENT: Atraumatic, normocephalic. Pupils equal and reactive to light. Extraocular movements intact. Buccal mucosa is fair. NECK: Supple. No goiter or lymphadenopathy. JVD is negative. No carotid bruit heard. LUNGS: Positive bibasilar crackles, slightly improved from yesterday. Heart is regular rate and rhythm without any murmurs or gallop rhythm. ABDOMEN: Soft, nontender, nondistended. Bowel sounds positive. EXTREMITIES: No edema, clubbing or cyanosis. Skin is warm, dry, without rashes, pigmentation. CENTRAL NERVOUS SYSTEM: No gross motor or sensory deficit. LAB: CBC: White blood count 15.7, hemoglobin 9, hematocrit 30.1, and platelet count of 302. Chemical profile: Sodium 136, potassium 3.4, chloride 95, bicarb 40, BUN 44, creatinine 1.0, glucose of 82. ASSESSMENT: 1. Severe mitral valve regurgitation, status post mitral valve replacement, postoperative day #14. 2. Postoperative respiratory failure with failure to wean, extubation on 11/30/2017. 3. Fluid overload with bilateral pleural effusion. 4. Metabolic alkalosis. 5. Mid sternal wound dehiscence. Wound culture is positive for Serratia. The patient is on Merrem. 6. Acute urinary tract infection. Urine culture positive for E coli. The patient was treated with the Zosyn now. Remains on Merrem. 7. Acute blood loss anemia. 8. History of hypertension. Patient remains on BiPAP. Diuretics are on hold due to metabolic alkalosis which is slightly improving. Renal function is improving too. Continue to monitor electrolytes. Continue to monitor renal function. Electric Distribution Engineer is following. Further recommendations per healthcare technician discretion. MMODL / IJN: [id number] /
[2017-12-10] MEDS ORDERED: SODIUM CHLORIDE 0.9% 500 ML IV ONE (20:11)
[2017-12-10 20:35] LABS: Glucose,Whole Blood 130 mg/dL (75-99)
[2017-12-10] MEDS: ESCITALOPRAM 10 MG TAB PO SCH (21:14)
[2017-12-10] MEDS: SENNOSIDES-DOCUSATE SODIUM 1 EACH TAB PO SCH (21:14)
--- NOTE | 2017-12-10 22:55 | P.PN ---
Subjective Progress Note Date: 12/10/17 Principal diagnosis: Sternal wound dehiscence Pleasant 67-year-old female who has an extensive past medical history who is now 14 days postoperative from her open heart procedure it which point in time a mitral valve placement occurred, reverse saphenous vein coronary artery bypass grafting 1 to obtuse marginal, Maze procedure and ligation of the left atrial appendage all occurred interoperatively left ventricular wall tear occurred and was repaired. The patient has a known history of multiple medical troubles before her surgery that included her obesity, COPD and marked deconditioning. Patient has had difficulties recently that included urinary tract infection with E. coli and Serratia and has been treated with intravenous antibiotic therapy with Zosyn. She was having some improvement but then developed dehiscence of her sternal wound and there are plans for surgical debridement tomorrow wound culture showing gram-negative bacilli and with at the infectious diseases consultation was requested. The patient continues to have significant respiratory difficulties and is currently on BiPAP for support. Postoperatively the patient was hemodynamically unstable which made even turning of the patient not possible which has resulted in unavoidable areas of skin breakdown, that are now treatable given her improvement 12/10/2017 reveals the patient to be postoperative from the sternal wound debridement. The surgical note as well as discussion with the surgical team reveals evidence of poor bone quality and all of the sternal wires had pulled through her bony areas. Negative pressure therapy is in place. She is tolerating this well. Plastic surgery consult has been requested for reconstruction of her chest in the near future. Gram-negative bacilli growing from the sternal wound. She is quite comfortable after procedure, chest tube was placed of the left cavity and this is improved some left lung function and she seems less short of breath. The daughter is present and her questions were answered. Objective - Vital Signs Vital signs: Vital Signs Temp 98.7 F 12/10/17 20:30 Pulse 127 H 12/10/17 21:00 Resp 20 12/10/17 21:00 BP 97/56 12/10/17 21:00 Pulse Ox 100 12/10/17 21:00 Intake & Output 12/10/17 12/10/17 12/11/17 06:59 18:59 06:59 Intake Total 180 2622.881 540 Output Total 300 560 50 Balance -120 2062.881 490 Weight 98.6 kg Intake: IV 180 501 540 Sodium Chloride 0.9% 1, 180 200 40 000 ml @ 20 mls/hr IV . Q24H [facility] Rx#:[id number] Sodium Chloride 0.9% 500 500 ml @ 999 mls/hr IV .Q31M ONE Rx#:[id number] Intake, IV Titration 1228.881 Amount Albumin Human 5% 250 ml 250 In Empty Bag 1 bag @ 250 mls/hr IVPB ONCE ONE Rx#: [id number] Albumin Human 5% 250 ml 250 In Empty Bag 1 bag @ 250 mls/hr IVPB ONCE STA Rx#: [id number] Amiodarone 450 mg In 328.881 Dextrose 5% in Water 250 ml @ 1 MG/MIN 33.33 mls/ hr IV .Q7H31M [facility] Rx#: [id number] Meropenem 1 gm In Sodium 200 Chloride 0.9% 100 ml @ 100 mls/hr IVPB Q8HR [facility] Rx#:[id number] Potassium Chloride 10 meq 200 In Sodium Chloride 0.9% 100 ml @ 100 mls/hr IV Q1H [facility] Rx#:[id number] Oral 600 Blood Product 293 Ffp 24 Cpd Unit 0 [id number] Ffp 24 Cpd Unit 293 [id number] Output: Chest Tube Drainage 110 Pleural Catheter Left 110 Drainage 150 50 Anterior Medial Chest 150 50 Urine 300 200 0 Estimated Blood Loss 100 Other: # Voids 0 1 ABP, PAP, CO, CI - Last Documented Arterial Blood Pressure 110/60 Pulmonary Artery Pressure 38/33 Cardiac Output 5.8 Cardiac Index 2.9 - Exam Obese 67-year-old woman who has a BiPAP for her shortness of breath. Does appear to be comfortable HEENT: Anicteric conjunctiva are pink and moist nasal mucosa grossly intact without significant lesions, there is no thrush. Oral mucosa is dry but no swapnil lesions could be seen Neck: The neck is supple without significant lymphadenopathy or thyromegaly. Lungs: Symmetrical air entry is noted. There is scattered crackles but no swapnil bronchial sounds Heart: Irregular with an audible S1 and S2 soft S4 no audible murmur no click or rub Chest: The patient's mid sternotomy incision has now been debrided and negative pressure therapy is in place. There is no significant tenderness. The drainage is being suctioned into the canister of the negative pressure system. Abdomen: Obese, Positive bowel sounds soft and nontender without palpable masses or organomegaly. There was no guarding or rebound. Extremities: The upper and lower extremities have evidence of edema harvest site is intact there is some bruising that is noted especially on the left groin area. IV sites are intact. Skin: On the lower back upper buttocks patient has a pressure ulcer stage III measuring 4 x 2 x 0.1 cm, clean at the base. Please refer to the nursing photography for further data. Also evidence of the foreskin tears two each on each buttocks measurements per nursing staff and hydrocolloid applied to all Neuro: Awake alert oriented to person place and time. There are no acute new gross focal sensory motor deficits. - Labs CBC & Chem 7: 12/10/17 04:15 12/10/17 04:15 Labs: Abnormal Lab Results - Last 24 Hours (Table) 12/10/17 12/10/17 12/10/17 Range/Units 04:15 04:15 04:15 WBC 15.7 H (3.8-10.6) k/uL RBC 3.42 L (3.80-5.40) m/uL Hgb 9.0 L (11.4-16.0) gm/dL Hct 30.1 L (34.0-46.0) % MCHC 29.9 L (31.0-37.0) g/dL RDW 17.6 H (11.5-15.5) % Neutrophils # 14.2 H (1.3-7.7) k/uL Lymphocytes # 0.5 L (1.0-4.8) k/uL PT 20.3 H (9.0-12.0) sec INR 2.2 H (<1.2) Sodium 136 L (137-145) mmol/L Potassium 3.4 L (3.5-5.1) mmol/L Chloride 95 L (98-107) mmol/L Carbon Dioxide 40 H* (22-30) mmol/L BUN 44 H (7-17) mg/dL POC Glucose (mg/dL) (75-99) mg/dL Calcium 8.3 L (8.4-10.2) mg/dL AST 46 H (14-36) U/L Total Protein 5.2 L (6.3-8.2) g/dL Albumin 2.2 L (3.5-5.0) g/dL 12/10/17 12/10/17 Range/Units 17:22 20:32 WBC (3.8-10.6) k/uL RBC (3.80-5.40) m/uL Hgb (11.4-16.0) gm/dL Hct (34.0-46.0) % MCHC (31.0-37.0) g/dL RDW (11.5-15.5) % Neutrophils # (1.3-7.7) k/uL Lymphocytes # (1.0-4.8) k/uL PT (9.0-12.0) sec INR (<1.2) Sodium (137-145) mmol/L Potassium (3.5-5.1) mmol/L Chloride (98-107) mmol/L Carbon Dioxide (22-30) mmol/L BUN (7-17) mg/dL POC Glucose (mg/dL) 149 H 130 H (75-99) mg/dL Calcium (8.4-10.2) mg/dL AST (14-36) U/L Total Protein (6.3-8.2) g/dL Albumin (3.5-5.0) g/dL Microbiology - Last 24 Hours (Table) 12/10/17 10:40 Fungal Culture - Preliminary Chest 12/10/17 10:40 Wound Culture - Preliminary Chest 12/10/17 10:40 Anaerobic Culture - Preliminary Chest 12/10/17 10:45 Acid Fast Bacilli Culture - Preliminary Chest 12/10/17 10:45 Anaerobic Culture - Preliminary Chest 12/10/17 10:45 Fungal Culture - Preliminary Chest 12/10/17 10:45 Tissue Culture - Preliminary Chest 12/07/17 15:40 Gram Stain - Final Chest Wound Culture - Final Serratia marcescens Laboratory Results WBC 15.7 k/uL (3.8-10.6) H 12/10/17 04:15 RBC 3.42 m/uL (3.80-5.40) L 12/10/17 04:15 Hgb 9.0 gm/dL (11.4-16.0) L 12/10/17 04:15 Hct 30.1 % (34.0-46.0) L 12/10/17 04:15 MCV 88.2 fL (80.0-100.0) 12/10/17 04:15 MCH 26.4 pg (25.0-35.0) 12/10/17 04:15 MCHC 29.9 g/dL (31.0-37.0) L 12/10/17 04:15 RDW 17.6 % (11.5-15.5) H 12/10/17 04:15 Plt Count 302 k/uL (150-450) 12/10/17 04:15 Neutrophils % 91 % 12/10/17 04:15 Neutrophils % (Manual) 98 % 12/05/17 04:25 Lymphocytes % 4 % 12/10/17 04:15 Lymphocytes % (Manual) 1 % 12/05/17 04:25 Monocytes % 5 % 12/10/17 04:15 Monocytes % (Manual) 1 % 12/05/17 04:25 Eosinophils % 0 % 12/10/17 04:15 Basophils % 0 % 12/10/17 04:15 Myelocytes % 1 % 12/03/17 04:15 Neutrophils # 14.2 k/uL (1.3-7.7) H 12/10/17 04:15 Neutrophils # (Manual) 26.95 k/uL (1.3-7.7) H 12/05/17 04:25 Lymphocytes # 0.5 k/uL (1.0-4.8) L 12/10/17 04:15 Lymphocytes # (Manual) 0.28 k/uL (1.0-4.8) L 12/05/17 04:25 Monocytes # 0.7 k/uL (0-1.0) 12/10/17 04:15 Monocytes # (Manual) 0.28 k/uL (0-1.0) 12/05/17 04:25 Eosinophils # 0.1 k/uL (0-0.7) 12/10/17 04:15 Basophils # 0.0 k/uL (0-0.2) 12/10/17 04:15 Myelocytes # (Manual) 0.17 k/uL (0) H 12/03/17 04:15 Nucleated RBCs 0 /100 WBC (0-0) 12/05/17 04:25 Manual Slide Review Performed 12/05/17 04:25 Polychromasia Present 12/03/17 04:15 Hypochromasia Marked 12/10/17 04:15 Poikilocytosis Slight 12/10/17 04:15 Anisocytosis Slight 12/10/17 04:15 Microcytosis Slight 11/25/17 14:40 Target Cells Present 12/03/17 04:15 PT 20.3 sec (9.0-12.0) H 12/10/17 04:15 INR 2.2 (<1.2) H 12/10/17 04:15 APTT 23.3 sec (22.0-30.0) 11/28/17 11:45 Fibrinogen 334 mg/dL (200-500) 11/26/17 04:22 [facility] 12/09/17 05:26 ABG pH 7.42 (7.35-7.45) 12/09/17 05:26 ABG pCO2 57 mmHg (35-45) H 12/09/17 05:26 ABG pO2 118 mmHg (83-108) H 12/09/17 05:26 ABG HCO3 37 mmol/L (21-25) H 12/09/17 05:26 ABG Total CO2 39 mmol/L (19-24) H 12/09/17 05:26 ABG O2 Saturation 98.2 % (94-97) H 12/09/17 05:26 ABG Base Excess 12.3 mmol/L 12/09/17 05:26 Robbi Test Yes 12/09/17 05:26 FiO2 50 % 12/09/17 05:26 Sodium 136 mmol/L (137-145) L 12/10/17 04:15 Potassium 3.4 mmol/L (3.5-5.1) L 12/10/17 04:15 Chloride 95 mmol/L (98-107) L 12/10/17 04:15 Carbon Dioxide 40 mmol/L (22-30) H* 12/10/17 04:15 Anion Gap 1 mmol/L 12/10/17 04:15 BUN 44 mg/dL (7-17) H 12/10/17 04:15 Creatinine 1.00 mg/dL (0.52-1.04) 12/10/17 04:15 Est GFR (MDRD) Af Amer >60 (>60 ml/min/1.73 sqM) 12/07/17 04:00 Est GFR (MDRD) Non-Af >60 (>60 ml/min/1.73 sqM) 12/07/17 04:00 Est GFR (CKD-EPI)AfAm 68 (>60 ml/min/1.73 sqM) 12/10/17 04:15 Est GFR (CKD-EPI)NonAf 59 (>60 ml/min/1.73 sqM) 12/10/17 04:15 Glucose 82 mg/dL (74-99) 12/10/17 04:15 POC Glucose (mg/dL) 130 mg/dL (75-99) H 12/10/17 20:32 POC Glu Audit Officer Lenka Mendoza 12/10/17 20:32 Calcium 8.3 mg/dL (8.4-10.2) L 12/10/17 04:15 Ionized Calcium Bruce 4.9 mg/dL (4.5-5.3) 12/04/17 04:10 Phosphorus 3.4 mg/dL (2.5-4.5) 12/10/17 04:15 Magnesium 2.3 mg/dL (1.6-2.3) 12/10/17 04:15 Total Bilirubin 0.7 mg/dL (0.2-1.3) 12/10/17 04:15 AST 46 U/L (14-36) H 12/10/17 04:15 ALT 41 U/L (9-52) 12/10/17 04:15 Alkaline Phosphatase 69 U/L (38-126) 12/10/17 04:15 Total Protein 5.2 g/dL (6.3-8.2) L 12/10/17 04:15 Albumin 2.2 g/dL (3.5-5.0) L 12/10/17 04:15 Urine Color Yellow 12/04/17 10:00 Urine Appearance Cloudy (Clear) H 12/04/17 10:00 Urine pH 5.5 (5.0-8.0) 12/04/17 10:00 Ur Specific Chrisney 1.015 (1.001-1.035) 12/04/17 10:00 Urine Protein Trace (Negative) H 12/04/17 10:00 Urine Glucose (UA) Negative (Negative) 12/04/17 10:00 Urine Ketones Negative (Negative) 12/04/17 10:00 Urine Blood Negative (Negative) 12/04/17 10:00 Urine Nitrite Negative (Negative) 12/04/17 10:00 Urine Bilirubin Negative (Negative) 12/04/17 10:00 Urine Urobilinogen <2.0 mg/dL (<2.0) 12/04/17 10:00 Ur Leukocyte Esterase Negative (Negative) 12/04/17 10:00 Urine RBC 7 /hpf (0-5) H 12/04/17 10:00 Urine WBC 1 /hpf (0-5) 12/04/17 10:00 Ur Squamous Epith Cells 8 /hpf (0-4) H 12/04/17 10:00 Urine Bacteria Occasional /hpf (None) H 12/04/17 10:00 Urine Mucus Rare /hpf (None) H 12/04/17 10:00 Heparin-Ind Plt Ab Scrn 0.231 OD (<0.4) 11/29/17 04:50 Blood Type A Positive 12/10/17 04:15 Blood Type Recheck No 12/10/17 04:15 Antibody Screen NEGATIVE 12/10/17 04:15 Crossmatch See Detail 12/01/17 07:45 Transfuse Cryo [id number] 11/26/17 00:39 Transfuse Plasma 12/10/2017 12/10/17 08:30 Transfuse Platelets [id number] 11/25/17 14:55 Spec Expiration Date 12/13/2017 - 23112/10/17 04:15 Microbiology 12/10/17 10:40 Chest Fungal Culture - Preliminary 12/10/17 10:40 Chest Wound Culture - Preliminary 12/10/17 10:40 Chest Anaerobic Culture - Preliminary 12/10/17 10:45 Chest Acid Fast Bacilli Culture - Preliminary 12/10/17 10:45 Chest Anaerobic Culture - Preliminary 12/10/17 10:45 Chest Fungal Culture - Preliminary 12/10/17 10:45 Chest Tissue Culture - Preliminary 12/07/17 15:40 Chest Gram Stain - Final 12/07/17 15:40 Chest Wound Culture - Final Serratia marcescens 12/04/17 10:00 Urine,Voided Urine Culture - Final Escherichia coli Serratia marcescens 11/26/17 04:00 Sputum Gram Stain - Final 11/26/17 04:00 Sputum Sputum Culture - Final Assessment and Plan (1) Severe mitral regurgitation Current Visit: Yes Status: Chronic Code(s): I34.0 - NONRHEUMATIC MITRAL ( VALVE) INSUFFICIENCY SNOMED Code(s): 87509891 (2) CAD (coronary artery disease) Current Visit: Yes Status: Chronic Code(s): I25.10 - ATHSCL HEART DISEASE OF [place] CORONARY ARTERY W/O ANG PCTRS SNOMED Code(s): 21359106 (3) Acute blood loss as cause of postoperative anemia Current Visit: Yes Status: Acute Code(s): D62 - ACUTE POSTHEMORRHAGIC ANEMIA SNOMED Code(s): 83319120375716934 (4) Pressure ulcer of contiguous region involving back and buttock, stage 3 Current Visit: Yes Status: Acute Code(s): L89.43 - PRESSR ULCER OF CONTIG SITE OF BACK, BUTTOCK AND HIP, STG 3 SNOMED Code(s): 052484579 (5) Sternal wound dehiscence Narrative/Plan: 67-year-old woman presents to Hospital for treatment of her severe mitral irritation. Underwent mitral valve replacement, coronary artery bypass grafting 1, Maze procedure and clipping of the left atrial appendage with a complication of the left ventricular wall tear. The patient has had a very protracted recovery she is now day 14 post operative and is still having difficulty with her respiratory status requiring BiPAP. The patient's nutritional status and underlying comorbidities have complicated her care. She now has evidence of the sternal dehiscence with evidence of gram negatives bacilli being found at the site. There is evidence of urinary tract infection with E. coli and Serratia. This Serratia species is somewhat resistant and consequently we'll alter the current antimicrobial therapy from Zosyn to meropenem to ensure coverage for other potential pathogens that are resistant that could be in the sternal wound while we await cultures. The patient will be going to the operating room tomorrow for debridement and wound VAC placement. The cultures were further direct the overall course of antibiotics. Urinary infection appears to be doing somewhat better. The patient fortunately is comfortable and doing well with her BiPAP. 12/10/2017 the patient is status post surgery and actually is feeling a bit better this afternoon than yesterday. Her pain is quite well controlled. She is not on BiPAP. She is less short of breath. Wound culture has verified the Serratia marcescens to the sternal wound. We'll constantly continue the current course of meropenem due to some of the resistance patterns or seeing with the species. Continue local care at this point time with the negative pressure system to the sternal wound. The plastic surgery consult is being requested for reconstruction of her chest. She will require a course of intravenous antibiotic therapy given her complex infection. Dual-lumen PICC is already in place. We'll repeat the discharge planners as to her place of rehab. Current Visit: Yes Status: Acute Code(s): T81.32XA - DISRUPTION OF INTERNAL OPERATION (SURGICAL) WOUND, NEC, INIT SNOMED Code(s): 04389483
[2017-12-10] MEDS ORDERED: DIGOXIN 250 MCG/ML 2 ML AMP IVP ONE (23:08)
[2017-12-10] MEDS: SODIUM CHLORIDE 0.9% 1,000 ML IV SCH (23:31)
[2017-12-11] MEDS: MEROPENEM 1 GM in SODIUM CHLORIDE 0.9% 100 ML IVPB SCH ×3 (01:21→16:46)
[2017-12-11] MEDS: HEPARIN SODIUM,PORCINE 5,000 UNIT/ML 1 ML VIAL SQ SCH ×3 (01:21→16:46)
[2017-12-11 06:38] LABS: Anisocytosis Slight; Basophils % (A) 0 %; Eosinophils % (A) 0 %; HCT 25.4 % (34.0-46.0); HGB 7.7 gm/dL (11.4-16.0); Hypochromasia Marked; Lymphocytes # (A) 0.5 k/uL (1.0-4.8); Lymphocytes % (A) 3 %; MCH 26.9 pg (25.0-35.0); MCHC 30.5 g/dL (31.0-37.0); MCV 88.3 fL (80.0-100.0); Mean Platelet Volume 7.3; Monocytes # (A) 0.5 k/uL (0-1.0); Monocytes % (A) 3 %; Neutrophils # (A) 15.1 k/uL (1.3-7.7); Neutrophils % (A) 92 %; Platelet Count 272 k/uL (150-450); Poikilocytosis Moderate; RBC 2.88 m/uL (3.80-5.40); RDW 17.5 % (11.5-15.5); WBC 16.3 k/uL (3.8-10.6)
[2017-12-11 06:50] LABS: INR 1.8 (<1.2); Prothrombin Time 16.6 sec (9.0-12.0)
[2017-12-11 07:02] LABS: Albumin 2.4 g/dL (3.5-5.0); Calcium 7.7 mg/dL (8.4-10.2); Potassium 3.6 mmol/L (3.5-5.1); Total Bilirubin 0.7 mg/dL (0.2-1.3)
[2017-12-11] MEDS ORDERED: DEXTROSE 5% IN WATER 100 ML with AMIODARONE 150 MG IV ONE (07:17)
[2017-12-11] MEDS: BUDESONIDE 1 MG/2 ML NEBU INHALATION SCH ×2 (08:07→19:23)
[2017-12-11] MEDS: IPRATROPIUM-ALBUTEROL 3 ML NEB INHALATION SCH ×4 (08:07→19:23)
--- NOTE | 2017-12-11 08:14 | XR ---
EXAMINATION TYPE: XR chest 1V portable DATE OF EXAM: 12/11/2017 CLINICAL HISTORY: Difficulty breathing progress study. Postoperative sternal debridement. TECHNIQUE: Single AP portable upright view of the chest is obtained. COMPARISON: Chest x-ray from one day earlier and older studies. CT chest December 08, 2017. FINDINGS: There is persistent left midlung chest tube. There is stable left-sided PICC line. There is persistent cardiomegaly with atherosclerotic thoracic aorta. There is persistent metallic mi tral valve and left atrial pulmonary venous metallic closure device. Left lung remains predominantly clear. There is persistent left basilar opacity consistent with small effusion and associated left tata ng atelectasis and/or infiltrate. Osseous structures are intact. IMPRESSION: Overall stable findings, cardiomegaly with small left pleural effusion and associated l eft basilar atelectasis and/or infiltrate despite mid lung chest tube in place. No significant change from one day earlier.
[2017-12-11] MEDS: INSULIN ASPART 100 UNIT/ML 1 ML 10 ML VIAL SQ SCH ×4 (09:09→21:43)
[2017-12-11 09:11] LABS: Glucose,Whole Blood 105 mg/dL (75-99)
[2017-12-11] MEDS: PANTOPRAZOLE 40 MG TABLET PO SCH (09:14)
[2017-12-11] MEDS: ASPIRIN 81 MG PO SCH (09:14)
[2017-12-11] MEDS: ATORVASTATIN 40 MG TAB PO SCH (09:15)
[2017-12-11] MEDS: AMIODARONE 200 MG TAB PO SCH ×2 (09:18→21:25)
[2017-12-11] MEDS: METOPROLOL TARTRATE 50 MG TAB PO SCH ×2 (09:18→22:24)
--- NOTE | 2017-12-11 10:11 | P.PN ---
Subjective Progress Note Date: 12/11/17 On 12/11/2017 I'm seeing this patient for a follow-up. The patient is this morning, comfortable in the BiPAP. She is using the BiPAP on and off during the day. She was taken to the operating room where his surgical wound was debrided and the sternum was debrided and the wound VAC was applied. There is a positive gram-negative infection with Serratia and the patient is currently on IV Merrem. Also, left-sided chest tube was inserted. The chest tube drained approximately 130 mL of fluid for yesterday since it was placed and another 60 mL for today. The patient's pleural wound VAC has drained approximately 550 mL for yesterday and another 100 mL for today. The patient is afebrile. The patient is hemodynamically stable. The patient went into atrial fibrillation and this morning she converted into sinus and she is back and forth between flutter and sinus rhythm. She is on no pressors. Her INR is at 1.8. No anticoagulation will be offered today. Lasix surgery consultation was obtained for a future muscle flap. Hemoglobin is at 7.7. White cell count is at 16.3. The function is stable with a creatinine of 0.8. She is using incentive spirometer. She has no other complaints otherwise for now. Objective - Vital Signs Vital signs: Vital Signs Temp 98.1 F 12/11/17 09:30 Pulse 137 H 12/11/17 09:30 Resp 28 H 12/11/17 09:30 BP 115/69 12/11/17 09:30 Pulse Ox 98 12/11/17 09:30 Intake & Output 12/10/17 12/11/17 12/11/17 18:59 06:59 18:59 Intake Total 2622.881 720 190 Output Total 560 820 160 Balance 2062.881 -100 30 Weight 103.7 kg Intake: IV 501 720 60 Sodium Chloride 0.9% 1, 200 220 60 000 ml @ 20 mls/hr IV . Q24H [facility] Rx#:[id number] Sodium Chloride 0.9% 500 500 ml @ 999 mls/hr IV .Q31M [facility] Rx#:[id number] Intake, IV Titration 1228.881 100 Amount Albumin Human 5% 250 ml 250 In Empty Bag 1 bag @ 250 mls/hr IVPB ONCE ONE Rx#: [id number] Albumin Human 5% 250 ml 250 In Empty Bag 1 bag @ 250 mls/hr IVPB ONCE [facility] Rx#: [id number] Amiodarone 450 mg In 328.881 Dextrose 5% in Water 250 ml @ 1 MG/MIN 33.33 mls/ hr IV .Q7H31M [facility] Rx#: [id number] Meropenem 1 gm In Sodium 200 100 Chloride 0.9% 100 ml @ 100 mls/hr IVPB Q8HR [facility] Rx#:[id number] Potassium Chloride 10 meq 200 In Sodium Chloride 0.9% 100 ml @ 100 mls/hr IV Q1H [facility] Rx#:[id number] Oral 600 30 Blood Product 293 Ffp 24 Cpd Unit 0 [id number] Ffp 24 Cpd Unit 293 [id number] Output: Chest Tube Drainage 110 20 60 Pleural Catheter Left 110 20 60 Drainage 150 400 Anterior Medial Chest 150 400 Urine 200 400 100 Estimated Blood Loss 100 Other: # Voids 1 ABP, PAP, CO, CI - Last Documented Arterial Blood Pressure 110/60 Pulmonary Artery Pressure 38/33 Cardiac Output 5.8 Cardiac Index 2.9 - Exam The patient is in mild degree of respiratory distress. She is tolerating a full face BiPAP mask without any major difficulties.Head exam was generally normal. There was no scleral icterus or corneal arcus. Mucous membranes were moist.Neck was supple and without jugular venous distension, thyromegaly, or carotid bruits. Carotids were easily palpable bilaterally. There was no adenopathy. The patient has crowding of posterior oropharynx. Mucosal resulted essentially dry. Lungs show diminished breath sounds bilaterally. The patient has a left-sided chest tube in place. The breast on the left lung base is diminished. The anterior sternal wound is debrided and it's open with a wound VAC applied and appropriate dressing applied. Heart sounds are regular for now, positive S1-S2 and there is no significant murmurs appreciated. Abdomen is obese soft nontender. No direct tenderness or rebound tenderness or guarding. Extremities reveal trace edema and there is no cyanosis or clubbing at this point. Neurologically the patient is awake and alert 3 and there is no focal neurological deficit. Examination of the skin other than the sternum is dry clean and intact. - Labs CBC & Chem 7: 12/11/17 06:05 12/11/17 06:05 Labs: Abnormal Lab Results - Last 24 Hours (Table) 12/10/17 12/10/17 12/11/17 Range/Units 17:22 20:32 06:05 WBC 16.3 H (3.8-10.6) k/uL RBC 2.88 L (3.80-5.40) m/uL Hgb 7.7 L (11.4-16.0) gm/dL Hct 25.4 L (34.0-46.0) % MCHC 30.5 L (31.0-37.0) g/dL RDW 17.5 H (11.5-15.5) % Neutrophils # 15.1 H (1.3-7.7) k/uL Lymphocytes # 0.5 L (1.0-4.8) k/uL PT (9.0-12.0) sec INR (<1.2) Carbon Dioxide (22-30) mmol/L BUN (7-17) mg/dL POC Glucose (mg/dL) 149 H 130 H (75-99) mg/dL Calcium (8.4-10.2) mg/dL AST (14-36) U/L Total Protein (6.3-8.2) g/dL Albumin (3.5-5.0) g/dL 12/11/17 12/11/17 12/11/17 Range/Units 06:05 06:05 09:08 WBC (3.8-10.6) k/uL RBC (3.80-5.40) m/uL Hgb (11.4-16.0) gm/dL Hct (34.0-46.0) % MCHC (31.0-37.0) g/dL RDW (11.5-15.5) % Neutrophils # (1.3-7.7) k/uL Lymphocytes # (1.0-4.8) k/uL PT 16.6 H (9.0-12.0) sec INR 1.8 H (<1.2) Carbon Dioxide 35 H (22-30) mmol/L BUN 44 H (7-17) mg/dL POC Glucose (mg/dL) 105 H (75-99) mg/dL Calcium 7.7 L (8.4-10.2) mg/dL AST 38 H (14-36) U/L Total Protein 5.0 L (6.3-8.2) g/dL Albumin 2.4 L (3.5-5.0) g/dL Microbiology - Last 24 Hours (Table) 12/10/17 10:50 Gram Stain - Preliminary Chest Tissue Culture - Preliminary 12/10/17 10:45 Acid Fast Bacilli Smear - Final Chest Acid Fast Bacilli Culture - Preliminary 12/10/17 10:50 Acid Fast Bacilli Culture - Preliminary Chest 12/10/17 10:50 Anaerobic Culture - Preliminary Chest 12/10/17 10:50 Fungal Culture - Preliminary Chest 12/10/17 10:40 Gram Stain - Preliminary Chest Wound Culture - Preliminary 12/10/17 10:45 Gram Stain - Preliminary Chest Tissue Culture - Preliminary 12/10/17 10:40 Fungal Culture - Preliminary Chest 12/10/17 10:40 Anaerobic Culture - Preliminary Chest 12/10/17 10:45 Anaerobic Culture - Preliminary Chest 12/10/17 10:45 Fungal Culture - Preliminary Chest Assessment and Plan Plan: 1. Severe mitral valve regurgitation, status post mitral valve replacement, with Maze procedure, left atrial appendage exclusion, and one-vessel bypass, postop day 15 2 sternal wound dehiscence/infection with gram-negative infection and the patient has Serratia currently on Merrem. The patient underwent debridement and the wound VAC is applied. She will ultimately need a flap and plastic surgery has been consulted. 3 left basilar atelectasis/small pleural effusion post chest tube insertion 4 Metabolic alkalosis secondary to diuresis 5. acute urinary tract infection, urine culture positive for E. coli and Serratia marcescens, was initially treated with Zosyn, now on meropenem 6. Anemia, multifactorial in the patient's hemoglobin is at 7.7 7 hypertension 8 left subclavian stenosis 9 approximately 2 fibrillation current rhythm is sinus with possible episodic flutter rhythm 221 10 obesity 11 previous history of GI bleed 12 pressure ulceration in the back and buttocks, stage III Plan Keep the patient off antibiotic coagulation for now. Today's INR is at 1.8. HEENT the left-sided chest tube. Continue with wound VAC treatment. Continue IV Merrem. BiPAP will be used periodically during the day to support the patient's respiratory status. Currently the patient on amiodarone 200 mg by mouth twice a day and this will be continued. Cardiothoracic surgery is on the case. Plastic surgery be also involved in the case. The patient will be kept here in the ICU and will continue to follow make further recommendations based on the progress.
[2017-12-11] MEDS: HYDROcodone/APAP 5-325MG 1 EACH TAB PO PRN ×2 (11:37→22:24)
--- NOTE | 2017-12-11 11:51 | P.PN ---
Subjective Progress Note Date: 12/11/17 Principal diagnosis: Severe mitral regurgitation. Coronary artery disease. Paroxysmal atrial fibrillation on Coumadin for anticoagulation. Recent hospitalization for lower GI bleed, duodenal ulcer. History of left subclavian stenosis with stent placement 2014 with recent discovery of critical re-in-stent stenosis. Previous tobacco dependence with preoperative FEV1 60% of predicted. Hypertension. Hyperlipidemia. Gallbladder disease. Family history of heart disease. Preoperative nasal swab positive for MRSA. Preoperative anemia. POD #16 mitral valve replacement using a 25 mm Ribera bioprosthetic tissue valve. Coronary artery bypass grafting 1, reverse saphenous vein graft to the obtuse marginal artery. Maze procedure. Endoscopic harvesting of the right greater saphenous vein. Epi-aortic ultrasound. Intraoperative transesophageal echocardiogram. Ligation of the left atrial appendage using a 40 mm AtriClip. Intraoperative left ventricular wall tear, an unexpected but potential outcome of surgery Acute blood loss anemia, and expected outcome given patient's preoperative anemia and intraoperative bleeding. Postoperative prolonged mechanical ventilation secondary to hemodynamic instability, and unexpected but potential outcome of surgery given the extensive nature of her perioperative course Sternal incision dehiscence, a possible outcome of surgery given patient's obesity, nutrition status, debility POD #1 sternal wound debridement with placement of wound VAC. The patient's currently sitting up in bed in no acute distress although she does become dyspneic with any activity and does take quite some time to recover. Does state that she is feeling better this morning, although sore after surgery yesterday. Wound VAC in place, left pleural chest tube in place. Objective - Vital Signs Vital signs: Vital Signs Temp 98.1 F 12/11/17 09:30 Pulse 112 H 12/11/17 11:36 Resp 28 H 12/11/17 09:30 BP 115/69 12/11/17 09:30 Pulse Ox 97 12/11/17 11:27 Intake & Output 12/10/17 12/11/17 12/11/17 18:59 06:59 18:59 Intake Total 2622.881 720 190 Output Total 560 820 160 Balance 2062.881 -100 30 Weight 103.7 kg Intake: IV 501 720 60 Sodium Chloride 0.9% 1, 200 220 60 000 ml @ 20 mls/hr IV . Q24H [facility] Rx#:[id number] Sodium Chloride 0.9% 500 500 ml @ 999 mls/hr IV .Q31M [facility] Rx#:[id number] Intake, IV Titration 1228.881 100 Amount Albumin Human 5% 250 ml 250 In Empty Bag 1 bag @ 250 mls/hr IVPB ONCE [facility] Rx#: [id number] Albumin Human 5% 250 ml 250 In Empty Bag 1 bag @ 250 mls/hr IVPB ONCE [facility] Rx#: [id number] Amiodarone 450 mg In 328.881 Dextrose 5% in Water 250 ml @ 1 MG/MIN 33.33 mls/ hr IV .Q7H31M [facility] Rx#: [id number] Meropenem 1 gm In Sodium 200 100 Chloride 0.9% 100 ml @ 100 mls/hr IVPB Q8HR [facility] Rx#:[id number] Potassium Chloride 10 meq 200 In Sodium Chloride 0.9% 100 ml @ 100 mls/hr IV Q1H [facility] Rx#:[id number] Oral 600 30 Blood Product 293 Ffp 24 Cpd Unit 0 [id number] Ffp 24 Cpd Unit 293 [id number] Output: Chest Tube Drainage 110 20 60 Pleural Catheter Left 110 20 60 Drainage 150 400 Anterior Medial Chest 150 400 Urine 200 400 100 Estimated Blood Loss 100 Other: # Voids 1 ABP, PAP, CO, CI - Last Documented Arterial Blood Pressure 110/60 Pulmonary Artery Pressure 38/33 Cardiac Output 5.8 Cardiac Index 2.9 - Constitutional General appearance: Present: cooperative, no acute distress, obese - Respiratory Details: Lungs diminished bilaterally. Respirations even, nonlabored. Currently 4 L high flow nasal cannula with oxygen saturation 97%. Able to achieve 500 mL on her incentive spirometry. Left pleural chest tube to continuous wall suction, 130 mL of thin serosanguineous drainage since surgery, no air leak present. - Cardiovascular Details: S1, S2 present. Regular, tachycardia rate and rhythm, atrial flutter on telemetry. Wound VAC in place over sternum. Palpable peripheral pulses bilaterally. Trace generalized edema present. No calf pain or tenderness noted. Left brachial PICC line present. Antiembolism seconds, SCDs present. - Gastrointestinal Gastrointestinal Comment(s): Abdomen soft, nontender, nondistended. Active bowel sounds 4 quadrants. Tolerating diet. Positive bowel movement 12/09/17. - Genitourinary Genitourinary Comment(s): Continues to void clear, yellow urine. - Integumentary Integumentary Comment(s): Skin is warm and dry. Sternal incision open with wound VAC in place. Left lower extremity EVH site well approximated. Lower back wound present, current local wound care in place. - Neurologic Neurologic: Present: CNII-XII intact - Musculoskeletal Musculoskeletal: Present: generalized weakness - Psychiatric Psychiatric: Present: A&O x's 3, appropriate affect, intact judgment & insight - Allied health notes Allied health notes reviewed: nursing - Labs CBC & Chem 7: 12/11/17 06:05 12/11/17 06:05 Labs: Abnormal Lab Results - Last 24 Hours (Table) 12/10/17 12/10/17 12/11/17 Range/Units 17:22 20:32 06:05 WBC 16.3 H (3.8-10.6) k/uL RBC 2.88 L (3.80-5.40) m/uL Hgb 7.7 L (11.4-16.0) gm/dL Hct 25.4 L (34.0-46.0) % MCHC 30.5 L (31.0-37.0) g/dL RDW 17.5 H (11.5-15.5) % Neutrophils # 15.1 H (1.3-7.7) k/uL Lymphocytes # 0.5 L (1.0-4.8) k/uL PT (9.0-12.0) sec INR (<1.2) Carbon Dioxide (22-30) mmol/L BUN (7-17) mg/dL POC Glucose (mg/dL) 149 H 130 H (75-99) mg/dL Calcium (8.4-10.2) mg/dL AST (14-36) U/L Total Protein (6.3-8.2) g/dL Albumin (3.5-5.0) g/dL 12/11/17 12/11/17 12/11/17 Range/Units 06:05 06:05 09:08 WBC (3.8-10.6) k/uL RBC (3.80-5.40) m/uL Hgb (11.4-16.0) gm/dL Hct (34.0-46.0) % MCHC (31.0-37.0) g/dL RDW (11.5-15.5) % Neutrophils # (1.3-7.7) k/uL Lymphocytes # (1.0-4.8) k/uL PT 16.6 H (9.0-12.0) sec INR 1.8 H (<1.2) Carbon Dioxide 35 H (22-30) mmol/L BUN 44 H (7-17) mg/dL POC Glucose (mg/dL) 105 H (75-99) mg/dL Calcium 7.7 L (8.4-10.2) mg/dL AST 38 H (14-36) U/L Total Protein 5.0 L (6.3-8.2) g/dL Albumin 2.4 L (3.5-5.0) g/dL Microbiology - Last 24 Hours (Table) 12/10/17 10:50 Gram Stain - Preliminary Chest Tissue Culture - Preliminary 12/10/17 10:45 Acid Fast Bacilli Smear - Final Chest Acid Fast Bacilli Culture - Preliminary 12/10/17 10:50 Acid Fast Bacilli Culture - Preliminary Chest 12/10/17 10:50 Anaerobic Culture - Preliminary Chest 12/10/17 10:50 Fungal Culture - Preliminary Chest 12/10/17 10:40 Gram Stain - Preliminary Chest Wound Culture - Preliminary 12/10/17 10:45 Gram Stain - Preliminary Chest Tissue Culture - Preliminary 12/10/17 10:40 Fungal Culture - Preliminary Chest 12/10/17 10:40 Anaerobic Culture - Preliminary Chest 12/10/17 10:45 Anaerobic Culture - Preliminary Chest 12/10/17 10:45 Fungal Culture - Preliminary Chest - Imaging and Cardiology Chest x-ray: report reviewed, image reviewed Assessment and Plan (1) Acute blood loss anemia Current Visit: Yes Status: Acute Code(s): D62 - ACUTE POSTHEMORRHAGIC ANEMIA SNOMED Code(s): 332366584 (2) CAD (coronary artery disease) Current Visit: Yes Status: Chronic Code(s): I25.10 - ATHSCL HEART DISEASE OF [place] CORONARY ARTERY W/O ANG PCTRS SNOMED Code(s): 04832233 (3) Hyperlipidemia Current Visit: Yes Status: Chronic Code(s): E78.5 - HYPERLIPIDEMIA, UNSPECIFIED SNOMED Code(s): 08924143 (4) Hypertension Current Visit: Yes Status: Chronic Code(s): I10 - ESSENTIAL (PRIMARY) HYPERTENSION SNOMED Code(s): 26699478 (5) Severe mitral regurgitation Current Visit: Yes Status: Chronic Code(s): I34.0 - NONRHEUMATIC MITRAL ( VALVE) INSUFFICIENCY SNOMED Code(s): 76065745 (6) Stenosis of left subclavian artery Current Visit: Yes Status: Chronic Code(s): I77.1 - STRICTURE OF ARTERY SNOMED Code(s): 75223793025726059 (7) Paroxysmal atrial fibrillation Current Visit: No Status: Resolved Code(s): I48.0 - PAROXYSMAL ATRIAL FIBRILLATION SNOMED Code(s): 347176977 (8) History of GI bleed Current Visit: No Status: Resolved Code(s): Z87.19 - PERSONAL HISTORY OF OTHER DISEASES OF THE DIGESTIVE SYSTEM SNOMED Code(s): 789763113 (9) Family history of coronary artery disease Current Visit: Yes Status: Chronic Code(s): Z82.49 - FAMILY HX OF ISCHEM HEART DIS AND OTH DIS OF THE CIRC SYS SNOMED Code(s): 555843311 Plan: 1. Continue baby aspirin, statin, subcutaneous heparin, beta krunal. Will increase beta krunal therapy as tolerated. 2. Continue amiodarone for history of paroxysmal atrial fibrillation on home amiodarone. Patient returned to atrial flutter after surgery yesterday, decision for further cardioversion per Dr. Crawley. No further amiodarone boluses per Dr. Crawley. 3. Wean O2 as tolerated. BiPAP management per pulmonology. Encourage incentive spirometry use 10x every hour. 4. Urine culture from December 04 was positive for E. coli and Serratia, was treated with IV Zosyn. 5. Sternal incision cultured, consistent with Serratia. Placed on meropenem per Dr. Olivera. Wound VAC in place to be changed Wednesday, Wednesday, and Fridays. Dr. Krause consulted for future wound flap closure. 6. Will monitor labs, chest x-rays. 7. Bronchodilators, steroids per pulmonology. 8. Daily Coumadin dosing per PT and INR. Cardiothoracic surgery will manage dosing while she is inpatient, outpatient management to be done by cardiology. 9. GI/DVT prophylaxis. 10. Increase activity as tolerated. PT/OT/cardiac rehab following. 11. Keep patient in the ICU for close monitoring. 12. More recommendations as patient progresses. Time with Patient: Greater than 30
[2017-12-11] MEDS ORDERED: POTASSIUM CHLORIDE ER 20 MEQ TAB.ER PO SCH ×2 (12:00→20:00)
[2017-12-11 12:20] LABS: Glucose,Whole Blood 110 mg/dL (75-99)
[2017-12-11] MEDS: SODIUM CHLORIDE 0.9% 1,000 ML IV SCH (12:20)
[2017-12-11] MEDS ORDERED: AMIODARONE 200 MG TAB PO SCH (13:37)
[2017-12-11] MEDS ORDERED: ALBUMIN HUMAN 5% 250 ML in EMPTY BAG 1 BAG IVPB ONE (14:24)
--- NOTE | 2017-12-11 16:11 | P.PN ---
Subjective Patient went back for sternal wound debridement and is now awaiting a muscle flap. White count 16,000. The first saw her she was in atrial tachycardia with RVR in the 130s. 5 minutes later she spontaneously converted to sinus rhythm. She is on oral amiodarone She still a BiPAP him a short of breath. Difficult to take a full breath breath sounds are reduced bilaterally heart sounds are soft Plan Stop digoxin continue oral amiodarone only, avoid IV amiodarone Low dose beta blockers Coumadin on hold because of the possibility of myocutaneous flap placement Objective - Vital Signs Vital signs: Vital Signs Temp 98.5 F 12/11/17 12:00 Pulse 114 H 12/11/17 15:27 Resp 26 H 12/11/17 13:30 BP 70/56 12/11/17 13:30 Pulse Ox 99 12/11/17 15:14 Intake & Output 12/10/17 12/11/17 12/11/17 18:59 06:59 18:59 Intake Total 2622.881 720 250 Output Total 560 820 170 Balance 2062.881 -100 80 Weight 103.7 kg Intake: IV 501 720 120 Sodium Chloride 0.9% 1, 200 220 120 000 ml @ 20 mls/hr IV . Q24H [facility] Rx#:[id number] Sodium Chloride 0.9% 500 500 ml @ 999 mls/hr IV .Q31M [facility] Rx#:[id number] Intake, IV Titration 1228.881 100 Amount Albumin Human 5% 250 ml 250 In Empty Bag 1 bag @ 250 mls/hr IVPB ONCE [facility] Rx#: [id number] Albumin Human 5% 250 ml 250 In Empty Bag 1 bag @ 250 mls/hr IVPB ONCE [facility] Rx#: [id number] Amiodarone 450 mg In 328.881 Dextrose 5% in Water 250 ml @ 1 MG/MIN 33.33 mls/ hr IV .Q7H31M [facility] Rx#: [id number] Meropenem 1 gm In Sodium 200 100 Chloride 0.9% 100 ml @ 100 mls/hr IVPB Q8HR [facility] Rx#:[id number] Potassium Chloride 10 meq 200 In Sodium Chloride 0.9% 100 ml @ 100 mls/hr IV Q1H [facility] Rx#:[id number] Oral 600 30 Blood Product 293 Ffp 24 Cpd Unit 0 [id number] Ffp 24 Cpd Unit 293 [id number] Output: Chest Tube Drainage 110 20 70 Pleural Catheter Left 110 20 70 Drainage 150 400 Anterior Medial Chest 150 400 Urine 200 400 100 Estimated Blood Loss 100 Other: # Voids 1 ABP, PAP, CO, CI - Last Documented Arterial Blood Pressure 110/60 Pulmonary Artery Pressure 38/33 Cardiac Output 5.8 Cardiac Index 2.9 - Labs CBC & Chem 7: 12/11/17 06:05 12/11/17 06:05 Labs: Abnormal Lab Results - Last 24 Hours (Table) 12/10/17 12/10/17 12/11/17 Range/Units 17:22 20:32 06:05 WBC 16.3 H (3.8-10.6) k/uL RBC 2.88 L (3.80-5.40) m/uL Hgb 7.7 L (11.4-16.0) gm/dL Hct 25.4 L (34.0-46.0) % MCHC 30.5 L (31.0-37.0) g/dL RDW 17.5 H (11.5-15.5) % Neutrophils # 15.1 H (1.3-7.7) k/uL Lymphocytes # 0.5 L (1.0-4.8) k/uL PT (9.0-12.0) sec INR (<1.2) Carbon Dioxide (22-30) mmol/L BUN (7-17) mg/dL POC Glucose (mg/dL) 149 H 130 H (75-99) mg/dL Calcium (8.4-10.2) mg/dL AST (14-36) U/L Total Protein (6.3-8.2) g/dL Albumin (3.5-5.0) g/dL 12/11/17 12/11/17 12/11/17 Range/Units 06:05 06:05 09:08 WBC (3.8-10.6) k/uL RBC (3.80-5.40) m/uL Hgb (11.4-16.0) gm/dL Hct (34.0-46.0) % MCHC (31.0-37.0) g/dL RDW (11.5-15.5) % Neutrophils # (1.3-7.7) k/uL Lymphocytes # (1.0-4.8) k/uL PT 16.6 H (9.0-12.0) sec INR 1.8 H (<1.2) Carbon Dioxide 35 H (22-30) mmol/L BUN 44 H (7-17) mg/dL POC Glucose (mg/dL) 105 H (75-99) mg/dL Calcium 7.7 L (8.4-10.2) mg/dL AST 38 H (14-36) U/L Total Protein 5.0 L (6.3-8.2) g/dL Albumin 2.4 L (3.5-5.0) g/dL 12/11/17 Range/Units 12:19 WBC (3.8-10.6) k/uL RBC (3.80-5.40) m/uL Hgb (11.4-16.0) gm/dL Hct (34.0-46.0) % MCHC (31.0-37.0) g/dL RDW (11.5-15.5) % Neutrophils # (1.3-7.7) k/uL Lymphocytes # (1.0-4.8) k/uL PT (9.0-12.0) sec INR (<1.2) Carbon Dioxide (22-30) mmol/L BUN (7-17) mg/dL POC Glucose (mg/dL) 110 H (75-99) mg/dL Calcium (8.4-10.2) mg/dL AST (14-36) U/L Total Protein (6.3-8.2) g/dL Albumin (3.5-5.0) g/dL Microbiology - Last 24 Hours (Table) 12/10/17 10:50 Gram Stain - Preliminary Chest Tissue Culture - Preliminary 12/10/17 10:45 Acid Fast Bacilli Smear - Final Chest Acid Fast Bacilli Culture - Preliminary 12/10/17 10:50 Acid Fast Bacilli Culture - Preliminary Chest 12/10/17 10:50 Anaerobic Culture - Preliminary Chest 12/10/17 10:50 Fungal Culture - Preliminary Chest 12/10/17 10:40 Gram Stain - Preliminary Chest Wound Culture - Preliminary 12/10/17 10:45 Gram Stain - Preliminary Chest Tissue Culture - Preliminary 12/10/17 10:40 Fungal Culture - Preliminary Chest 12/10/17 10:40 Anaerobic Culture - Preliminary Chest 12/10/17 10:45 Anaerobic Culture - Preliminary Chest 12/10/17 10:45 Fungal Culture - Preliminary Chest
[2017-12-11 16:44] LABS: Glucose,Whole Blood 119 mg/dL (75-99)
--- NOTE | 2017-12-11 18:01 | PN ---
PROGRESS NOTE DATE OF SERVICE: 12/11/2017 Patient remains in ICU. Patient had sternal wound debridement and is to have a muscle flap now. VITAL SIGNS: Temperature 98.5, pulse 114, respiration 26, blood pressure 70/56, oxygen saturation 99%. GENERAL EXAMINATION: Patient is awake and cooperative. HEENT: Atraumatic, normocephalic. Pupils equal and reactive to light. Extraocular movements intact. Buccal mucosa is fair. Neck is supple. LUNGS: Decreased breath sounds with scattered rhonchi. HEART: Irregularly irregular. Tachycardic. Patient has a wound VAC over her sternum. ABDOMEN: Soft and nontender, nondistended. EXTREMITIES: Positive trace edema. LABS: CBC: White blood count of 16.3, hemoglobin of 7.7, hematocrit 25.4 and platelet count of 272. Chemical profile: Sodium 139, potassium 3.6, chloride 98, bicarb 35, BUN 44, creatinine 0.86, glucose of 86. ASSESSMENT: 1. Severe mitral valve regurgitation, status post mitral valve replacement. Patient is postoperative day number 15. 2. Sternal wound dehiscence and infection. Patient has a wound VAC and remains on IV antibiotics. She did have debridement done. She awaits a muscle flap now. 3. Left basilar atelectasis or pleural effusion. Patient is status post chest tube insertion. 4. Urinary tract infection; remains on IV antibiotics. 5. Metabolic acidosis. 6. Hypertension. 7. Left subclavian stenosis. Patient remains in ICU. She has a left-sided chest tube and a chest wound VAC and uses BiPAP periodically for respiratory. Remains on amiodarone for atrial fibrillation. Continue current plan of care. Further recommendations pending clinical course. MMODL / IJN: [id number] /
[2017-12-11] MEDS: SENNOSIDES-DOCUSATE SODIUM 1 EACH TAB PO SCH (21:25)
[2017-12-11] MEDS: ESCITALOPRAM 10 MG TAB PO SCH (21:26)
[2017-12-11 21:40] LABS: Glucose,Whole Blood 139 mg/dL (75-99)
--- NOTE | 2017-12-11 22:11 | P.PN ---
Subjective Progress Note Date: 12/11/17 Principal diagnosis: Sternal wound dehiscence Pleasant 67-year-old female who has an extensive past medical history who is now 14 days postoperative from her open heart procedure it which point in time a mitral valve placement occurred, reverse saphenous vein coronary artery bypass grafting 1 to obtuse marginal, Maze procedure and ligation of the left atrial appendage all occurred interoperatively left ventricular wall tear occurred and was repaired. The patient has a known history of multiple medical troubles before her surgery that included her obesity, COPD and marked deconditioning. Patient has had difficulties recently that included urinary tract infection with E. coli and Serratia and has been treated with intravenous antibiotic therapy with Zosyn. She was having some improvement but then developed dehiscence of her sternal wound and there are plans for surgical debridement tomorrow wound culture showing gram-negative bacilli and with at the infectious diseases consultation was requested. The patient continues to have significant respiratory difficulties and is currently on BiPAP for support. Postoperatively the patient was hemodynamically unstable which made even turning of the patient not possible which has resulted in unavoidable areas of skin breakdown, that are now treatable given her improvement 12/10/2017 reveals the patient to be postoperative from the sternal wound debridement. The surgical note as well as discussion with the surgical team reveals evidence of poor bone quality and all of the sternal wires had pulled through her bony areas. Negative pressure therapy is in place. She is tolerating this well. Plastic surgery consult has been requested for reconstruction of her chest in the near future. Gram-negative bacilli growing from the sternal wound. She is quite comfortable after procedure, chest tube was placed of the left cavity and this is improved some left lung function and she seems less short of breath. The daughter is present and her questions were answered. 12/11/2017 reveals the patient to have had some respiratory distress today and is back on BiPAP at this time. She relates that her pain is under much significant control. Been no other new acute complaints are being made. Objective - Vital Signs Vital signs: Vital Signs Temp 98.5 F 12/11/17 12:00 Pulse 116 H 12/11/17 19:39 Resp 20 12/11/17 19:00 BP 125/71 12/11/17 19:00 Pulse Ox 98 12/11/17 19:00 Intake & Output 12/11/17 12/11/17 12/12/17 06:59 18:59 07:59 Intake Total 720 440 60 Output Total 820 320 250 Balance -100 120 -190 Weight 103.7 kg Intake: IV 720 240 60 Sodium Chloride 0.9% 1, 220 240 60 000 ml @ 20 mls/hr IV . Q24H [facility] Rx#:[id number] Sodium Chloride 0.9% 500 500 ml @ 999 mls/hr IV .Q31M [facility] Rx#:[id number] Intake, IV Titration 100 Amount Meropenem 1 gm In Sodium 100 Chloride 0.9% 100 ml @ 100 mls/hr IVPB Q8HR [facility] Rx#:[id number] Oral 100 Output: Chest Tube Drainage 20 70 Pleural Catheter Left 20 70 Drainage 400 Anterior Medial Chest 400 Urine 400 250 250 ABP, PAP, CO, CI - Last Documented Arterial Blood Pressure 110/60 Pulmonary Artery Pressure 38/33 Cardiac Output 5.8 Cardiac Index 2.9 - Exam Obese 67-year-old woman who has a BiPAP for her shortness of breath. Does appear to be comfortable HEENT: Anicteric conjunctiva are pink and moist nasal mucosa grossly intact without significant lesions, there is no thrush. Oral mucosa is dry but no swapnil lesions could be seen Neck: The neck is supple without significant lymphadenopathy or thyromegaly. Lungs: Symmetrical air entry is noted. There is scattered crackles but no swapnil bronchial sounds Heart: Irregular with an audible S1 and S2 soft S4 no audible murmur no click or rub Chest: The patient's mid sternotomy incision has now been debrided and negative pressure therapy is in place. There is no significant tenderness. The drainage is being suctioned into the canister of the negative pressure system. Abdomen: Obese, Positive bowel sounds soft and nontender without palpable masses or organomegaly. There was no guarding or rebound. Extremities: The upper and lower extremities have evidence of edema harvest site is intact there is some bruising that is noted especially on the left groin area. IV sites are intact. Skin: On the lower back upper buttocks patient has a pressure ulcer stage III measuring 4 x 2 x 0.1 cm, clean at the base. Please refer to the nursing photography for further data. Also evidence of the foreskin tears two each on each buttocks measurements per nursing staff and hydrocolloid applied to all Neuro: Awake alert oriented to person place and time. There are no acute new gross focal sensory motor deficits. - Labs CBC & Chem 7: 12/11/17 06:05 12/11/17 15:45 Labs: Abnormal Lab Results - Last 24 Hours (Table) 12/11/17 12/11/17 12/11/17 Range/Units 06:05 06:05 06:05 WBC 16.3 H (3.8-10.6) k/uL RBC 2.88 L (3.80-5.40) m/uL Hgb 7.7 L (11.4-16.0) gm/dL Hct 25.4 L (34.0-46.0) % MCHC 30.5 L (31.0-37.0) g/dL RDW 17.5 H (11.5-15.5) % Neutrophils # 15.1 H (1.3-7.7) k/uL Lymphocytes # 0.5 L (1.0-4.8) k/uL PT 16.6 H (9.0-12.0) sec INR 1.8 H (<1.2) Carbon Dioxide 35 H (22-30) mmol/L BUN 44 H (7-17) mg/dL POC Glucose (mg/dL) (75-99) mg/dL Calcium 7.7 L (8.4-10.2) mg/dL AST 38 H (14-36) U/L Total Protein 5.0 L (6.3-8.2) g/dL Albumin 2.4 L (3.5-5.0) g/dL 12/11/17 12/11/17 12/11/17 Range/Units 09:08 12:19 16:42 WBC (3.8-10.6) k/uL RBC (3.80-5.40) m/uL Hgb (11.4-16.0) gm/dL Hct (34.0-46.0) % MCHC (31.0-37.0) g/dL RDW (11.5-15.5) % Neutrophils # (1.3-7.7) k/uL Lymphocytes # (1.0-4.8) k/uL PT (9.0-12.0) sec INR (<1.2) Carbon Dioxide (22-30) mmol/L BUN (7-17) mg/dL POC Glucose (mg/dL) 105 H 110 H 119 H (75-99) mg/dL Calcium (8.4-10.2) mg/dL AST (14-36) U/L Total Protein (6.3-8.2) g/dL Albumin (3.5-5.0) g/dL 12/11/17 Range/Units 21:39 WBC (3.8-10.6) k/uL RBC (3.80-5.40) m/uL Hgb (11.4-16.0) gm/dL Hct (34.0-46.0) % MCHC (31.0-37.0) g/dL RDW (11.5-15.5) % Neutrophils # (1.3-7.7) k/uL Lymphocytes # (1.0-4.8) k/uL PT (9.0-12.0) sec INR (<1.2) Carbon Dioxide (22-30) mmol/L BUN (7-17) mg/dL POC Glucose (mg/dL) 139 H (75-99) mg/dL Calcium (8.4-10.2) mg/dL AST (14-36) U/L Total Protein (6.3-8.2) g/dL Albumin (3.5-5.0) g/dL Microbiology - Last 24 Hours (Table) 12/10/17 10:50 Gram Stain - Preliminary Chest Tissue Culture - Preliminary Gram Neg Bacilli 12/10/17 10:50 Acid Fast Bacilli Smear - Final Chest Acid Fast Bacilli Culture - Preliminary 12/10/17 10:45 Acid Fast Bacilli Smear - Final Chest Acid Fast Bacilli Culture - Preliminary 12/10/17 10:50 Anaerobic Culture - Preliminary Chest 12/10/17 10:50 Fungal Culture - Preliminary Chest 12/10/17 10:40 Gram Stain - Preliminary Chest Wound Culture - Preliminary 12/10/17 10:45 Gram Stain - Preliminary Chest Tissue Culture - Preliminary 12/10/17 10:40 Fungal Culture - Preliminary Chest 12/10/17 10:40 Anaerobic Culture - Preliminary Chest 12/10/17 10:45 Anaerobic Culture - Preliminary Chest 12/10/17 10:45 Fungal Culture - Preliminary Chest Laboratory Results WBC 16.3 k/uL (3.8-10.6) H 12/11/17 06:05 RBC 2.88 m/uL (3.80-5.40) L 12/11/17 06:05 Hgb 7.7 gm/dL (11.4-16.0) L 12/11/17 06:05 Hct 25.4 % (34.0-46.0) L 12/11/17 06:05 MCV 88.3 fL (80.0-100.0) 12/11/17 06:05 MCH 26.9 pg (25.0-35.0) 12/11/17 06:05 MCHC 30.5 g/dL (31.0-37.0) L 12/11/17 06:05 RDW 17.5 % (11.5-15.5) H 12/11/17 06:05 Plt Count 272 k/uL (150-450) 12/11/17 06:05 Neutrophils % 92 % 12/11/17 06:05 Neutrophils % (Manual) 98 % 12/05/17 04:25 Lymphocytes % 3 % 12/11/17 06:05 Lymphocytes % (Manual) 1 % 12/05/17 04:25 Monocytes % 3 % 12/11/17 06:05 Monocytes % (Manual) 1 % 12/05/17 04:25 Eosinophils % 0 % 12/11/17 06:05 Basophils % 0 % 12/11/17 06:05 Myelocytes % 1 % 12/03/17 04:15 Neutrophils # 15.1 k/uL (1.3-7.7) H 12/11/17 06:05 Neutrophils # (Manual) 26.95 k/uL (1.3-7.7) H 12/05/17 04:25 Lymphocytes # 0.5 k/uL (1.0-4.8) L 12/11/17 06:05 Lymphocytes # (Manual) 0.28 k/uL (1.0-4.8) L 12/05/17 04:25 Monocytes # 0.5 k/uL (0-1.0) 12/11/17 06:05 Monocytes # (Manual) 0.28 k/uL (0-1.0) 12/05/17 04:25 Eosinophils # 0.0 k/uL (0-0.7) 12/11/17 06:05 Basophils # 0.0 k/uL (0-0.2) 12/11/17 06:05 Myelocytes # (Manual) 0.17 k/uL (0) H 12/03/17 04:15 Nucleated RBCs 0 /100 WBC (0-0) 12/05/17 04:25 Manual Slide Review Performed 12/05/17 04:25 Polychromasia Present 12/03/17 04:15 Hypochromasia Marked 12/11/17 06:05 Poikilocytosis Moderate 12/11/17 06:05 Anisocytosis Slight 12/11/17 06:05 Microcytosis Slight 11/25/17 14:40 Target Cells Present 12/03/17 04:15 PT 16.6 sec (9.0-12.0) H 12/11/17 06:05 INR 1.8 (<1.2) H 12/11/17 06:05 APTT 23.3 sec (22.0-30.0) 11/28/17 11:45 Fibrinogen 334 mg/dL (200-500) 11/26/17 04:22 Sample Site [facility] 12/09/17 05:26 ABG pH 7.42 (7.35-7.45) 12/09/17 05:26 ABG pCO2 57 mmHg (35-45) H 12/09/17 05:26 ABG pO2 118 mmHg (83-108) H 12/09/17 05:26 ABG HCO3 37 mmol/L (21-25) H 12/09/17 05:26 ABG Total CO2 39 mmol/L (19-24) H 12/09/17 05:26 ABG O2 Saturation 98.2 % (94-97) H 12/09/17 05:26 ABG Base Excess 12.3 mmol/L 12/09/17 05:26 Robbi Test Yes 12/09/17 05:26 FiO2 50 % 12/09/17 05:26 Sodium 139 mmol/L (137-145) 12/11/17 06:05 Potassium 3.8 mmol/L (3.5-5.1) 12/11/17 15:45 Chloride 98 mmol/L (98-107) 12/11/17 06:05 Carbon Dioxide 35 mmol/L (22-30) H 12/11/17 06:05 Anion Gap 6 mmol/L 12/11/17 06:05 BUN 44 mg/dL (7-17) H 12/11/17 06:05 Creatinine 0.86 mg/dL (0.52-1.04) 12/11/17 06:05 Est GFR (MDRD) Af Amer >60 (>60 ml/min/1.73 sqM) 12/07/17 04:00 Est GFR (MDRD) Non-Af >60 (>60 ml/min/1.73 sqM) 12/07/17 04:00 Est GFR (CKD-EPI)AfAm 82 (>60 ml/min/1.73 sqM) 12/11/17 06:05 Est GFR (CKD-EPI)NonAf 71 (>60 ml/min/1.73 sqM) 12/11/17 06:05 Glucose 86 mg/dL (74-99) 12/11/17 06:05 POC Glucose (mg/dL) 139 mg/dL (75-99) H 12/11/17 21:39 POC Glu [employer] ID Amber Jara 12/11/17 21:39 Calcium 7.7 mg/dL (8.4-10.2) L 12/11/17 06:05 Ionized Calcium Bruce 4.7 mg/dL (4.5-5.3) 12/11/17 15:45 Phosphorus 3.4 mg/dL (2.5-4.5) 12/10/17 04:15 Magnesium 2.3 mg/dL (1.6-2.3) 12/10/17 04:15 Total Bilirubin 0.7 mg/dL (0.2-1.3) 12/11/17 06:05 AST 38 U/L (14-36) H 12/11/17 06:05 ALT 42 U/L (9-52) 12/11/17 06:05 Alkaline Phosphatase 64 U/L (38-126) 12/11/17 06:05 Total Protein 5.0 g/dL (6.3-8.2) L 12/11/17 06:05 Albumin 2.4 g/dL (3.5-5.0) L 12/11/17 06:05 Urine Color Yellow 12/04/17 10:00 Urine Appearance Cloudy (Clear) H 12/04/17 10:00 Urine pH 5.5 (5.0-8.0) 12/04/17 10:00 Ur Specific Crystal 1.015 (1.001-1.035) 12/04/17 10:00 Urine Protein Trace (Negative) H 12/04/17 10:00 Urine Glucose (UA) Negative (Negative) 12/04/17 10:00 Urine Ketones Negative (Negative) 12/04/17 10:00 Urine Blood Negative (Negative) 12/04/17 10:00 Urine Nitrite Negative (Negative) 12/04/17 10:00 Urine Bilirubin Negative (Negative) 12/04/17 10:00 Urine Urobilinogen <2.0 mg/dL (<2.0) 12/04/17 10:00 Ur Leukocyte Esterase Negative (Negative) 12/04/17 10:00 Urine RBC 7 /hpf (0-5) H 12/04/17 10:00 Urine WBC 1 /hpf (0-5) 12/04/17 10:00 Ur Squamous Epith Cells 8 /hpf (0-4) H 12/04/17 10:00 Urine Bacteria Occasional /hpf (None) H 12/04/17 10:00 Urine Mucus Rare /hpf (None) H 12/04/17 10:00 Heparin-Ind Plt Ab Scrn 0.231 OD (<0.4) 11/29/17 04:50 Blood Type A Positive 12/10/17 04:15 Blood Type Recheck No 12/10/17 04:15 Antibody Screen NEGATIVE 12/10/17 04:15 Crossmatch See Detail 12/01/17 07:45 Transfuse Cryo [id number] 11/26/17 00:39 Transfuse Plasma 12/10/2017 12/10/17 08:30 Transfuse Platelets [id number] 11/25/17 14:55 Spec Expiration Date 12/13/2017 - 2315 12/10/17 04:15 Microbiology 12/10/17 10:50 Chest Gram Stain - Preliminary 12/10/17 10:50 Chest Tissue Culture - Preliminary Gram Neg Bacilli 12/10/17 10:50 Chest Acid Fast Bacilli Smear - Final 12/10/17 10:50 Chest Acid Fast Bacilli Culture - Preliminary 12/10/17 10:45 Chest Acid Fast Bacilli Smear - Final 12/10/17 10:45 Chest Acid Fast Bacilli Culture - Preliminary 12/10/17 10:50 Chest Anaerobic Culture - Preliminary 12/10/17 10:50 Chest Fungal Culture - Preliminary 12/10/17 10:40 Chest Gram Stain - Preliminary 12/10/17 10:40 Chest Wound Culture - Preliminary 12/10/17 10:45 Chest Gram Stain - Preliminary 12/10/17 10:45 Chest Tissue Culture - Preliminary 12/10/17 10:40 Chest Fungal Culture - Preliminary 12/10/17 10:40 Chest Anaerobic Culture - Preliminary 12/10/17 10:45 Chest Anaerobic Culture - Preliminary 12/10/17 10:45 Chest Fungal Culture - Preliminary 12/07/17 15:40 Chest Gram Stain - Final 12/07/17 15:40 Chest Wound Culture - Final Serratia marcescens 12/04/17 10:00 Urine,Voided Urine Culture - Final Escherichia coli Serratia marcescens 11/26/17 04:00 Sputum Gram Stain - Final 11/26/17 04:00 Sputum Sputum Culture - Final Assessment and Plan (1) Severe mitral regurgitation Current Visit: Yes Status: Chronic Code(s): I34.0 - NONRHEUMATIC MITRAL ( VALVE) INSUFFICIENCY SNOMED Code(s): 49333664 (2) CAD (coronary artery disease) Current Visit: Yes Status: Chronic Code(s): I25.10 - ATHSCL HEART DISEASE OF [place] CORONARY ARTERY W/O ANG PCTRS SNOMED Code(s): 92929014 (3) Acute blood loss as cause of postoperative anemia Current Visit: Yes Status: Acute Code(s): D62 - ACUTE POSTHEMORRHAGIC ANEMIA SNOMED Code(s): 44812622506364122 (4) Pressure ulcer of contiguous region involving back and buttock, stage 3 Current Visit: Yes Status: Acute Code(s): L89.43 - PRESSR ULCER OF CONTIG SITE OF BACK, BUTTOCK AND HIP, STG 3 SNOMED Code(s): 324364079 (5) Sternal wound dehiscence Narrative/Plan: 67-year-old woman presents to Hospital for treatment of her severe mitral irritation. Underwent mitral valve replacement, coronary artery bypass grafting 1, Maze procedure and clipping of the left atrial appendage with a complication of the left ventricular wall tear. The patient has had a very protracted recovery she is now day 14 post operative and is still having difficulty with her respiratory status requiring BiPAP. The patient's nutritional status and underlying comorbidities have complicated her care. She now has evidence of the sternal dehiscence with evidence of gram negatives bacilli being found at the site. There is evidence of urinary tract infection with E. coli and Serratia. This Serratia species is somewhat resistant and consequently we'll alter the current antimicrobial therapy from Zosyn to meropenem to ensure coverage for other potential pathogens that are resistant that could be in the sternal wound while we await cultures. The patient will be going to the operating room tomorrow for debridement and wound VAC placement. The cultures were further direct the overall course of antibiotics. Urinary infection appears to be doing somewhat better. The patient fortunately is comfortable and doing well with her BiPAP. 12/10/2017 the patient is status post surgery and actually is feeling a bit better this afternoon than yesterday. Her pain is quite well controlled. She is not on BiPAP. She is less short of breath. Wound culture has verified the Serratia marcescens to the sternal wound. We'll constantly continue the current course of meropenem due to some of the resistance patterns or seeing with the species. Continue local care at this point time with the negative pressure system to the sternal wound. The plastic surgery consult is being requested for reconstruction of her chest. She will require a course of intravenous antibiotic therapy given her complex infection. Dual-lumen PICC is already in place. We'll repeat the discharge planners as to her place of rehab. 12/11/2017 the patient is metabolically stable but is having difficulties with her respiratory status and is now back on BiPAP which has been intermittent over the last multiple days. Negative pressure therapy remains intact and the sternum and we await the plastic surgery intervention. 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 Continue supportive care, and nutritional supplements as possible to improve for tissue healing. Current Visit: Yes Status: Acute Code(s): T81.32XA - DISRUPTION OF INTERNAL OPERATION (SURGICAL) WOUND, NEC, INIT SNOMED Code(s): 04115009
[2017-12-12] MEDS: MEROPENEM 1 GM in SODIUM CHLORIDE 0.9% 100 ML IVPB SCH ×3 (01:23→17:08)
[2017-12-12] MEDS: HEPARIN SODIUM,PORCINE 5,000 UNIT/ML 1 ML VIAL SQ SCH ×3 (01:31→17:03)
[2017-12-12 06:24] LABS: Anisocytosis Slight; Basophils % (A) 0 %; Eosinophils # (A) 0.1 k/uL (0-0.7); Eosinophils % (A) 0 %; HCT 26.2 % (34.0-46.0); HGB 8.1 gm/dL (11.4-16.0); Hypochromasia Marked; Lymphocytes # (A) 0.5 k/uL (1.0-4.8); Lymphocytes % (A) 3 %; MCH 27.2 pg (25.0-35.0); MCHC 30.8 g/dL (31.0-37.0); MCV 88.4 fL (80.0-100.0); Mean Platelet Volume 7.6; Monocytes # (A) 0.6 k/uL (0-1.0); Monocytes % (A) 3 %; Neutrophils # (A) 17.8 k/uL (1.3-7.7); Neutrophils % (A) 93 %; Platelet Count 311 k/uL (150-450); Poikilocytosis Moderate; RBC 2.96 m/uL (3.80-5.40); RDW 18.3 % (11.5-15.5); WBC 19.2 k/uL (3.8-10.6)
[2017-12-12 06:29] LABS: INR 1.7 (<1.2); Prothrombin Time 15.5 sec (9.0-12.0)
[2017-12-12 06:46] LABS: ALT 33 U/L (9-52); AST 41 U/L (14-36); Albumin 2.3 g/dL (3.5-5.0); Alkaline Phosphatase 76 U/L (38-126); Anion Gap 4 mmol/L; Blood Urea Nitrogen 41 mg/dL (7-17); Calcium 8.1 mg/dL (8.4-10.2); Carbon Dioxide 37 mmol/L (22-30); Chloride 99 mmol/L (98-107); Glucose 92 mg/dL (74-99); Magnesium 2.5 mg/dL (1.6-2.3); Sodium 140 mmol/L (137-145); Total Bilirubin 0.6 mg/dL (0.2-1.3); Total Protein 5.1 g/dL (6.3-8.2)
[2017-12-12] MEDS: IPRATROPIUM-ALBUTEROL 3 ML NEB INHALATION SCH ×4 (07:40→19:55)
[2017-12-12] MEDS: BUDESONIDE 1 MG/2 ML NEBU INHALATION SCH ×2 (07:40→19:55)
--- NOTE | 2017-12-12 07:47 | XR ---
EXAMINATION TYPE: XR chest 1V portable DATE OF EXAM: 12/12/2017 CLINICAL HISTORY: Difficulty breathing progress study. Postoperative cardiac surgery progress study. TECHNIQUE: Single AP portable upright view of the chest is obtained. COMPARISON: Chest x-ray from one day earlier and older studies. FINDINGS: There is persistent left midlung chest tube. There is stable left -sided PICC line. There is persistent cardiomegaly with atherosclerotic thoracic aorta. There is persistent metallic mi tral valve and left atrial pulmonary venous metallic closure device. Right lung remains predominantly clear. There is persistent left basilar opacity consistent with small effusion and associated left l christiano atelectasis and/or infiltrate. Osseous structures are intact. IMPRESSION: Cardiomegaly with small left pleural effusion and associated left basilar atelectasis and /or infiltrate despite midlung chest tube is all redemonstrated. No significant change from most rece nt chest x-ray.
[2017-12-12] MEDS: HYDROcodone/APAP 5-325MG 1 EACH TAB PO PRN ×2 (08:48→15:18)
[2017-12-12] MEDS: METOPROLOL TARTRATE 50 MG TAB PO SCH ×2 (08:48→21:45)
[2017-12-12] MEDS: INSULIN ASPART 100 UNIT/ML 1 ML 10 ML VIAL SQ SCH ×4 (08:49→20:16)
[2017-12-12] MEDS: AMIODARONE 200 MG TAB PO SCH ×2 (08:49→20:16)
[2017-12-12] MEDS: PANTOPRAZOLE 40 MG TABLET PO SCH (08:49)
[2017-12-12] MEDS: ATORVASTATIN 40 MG TAB PO SCH (08:50)
[2017-12-12] MEDS: ASPIRIN 81 MG PO SCH (08:50)
--- NOTE | 2017-12-12 09:55 | P.PN ---
Subjective Progress Note Date: 12/12/17 On 12/11/2017 I'm seeing this patient for a follow-up. The patient is this morning, comfortable in the BiPAP. She is using the BiPAP on and off during the day. She was taken to the operating room where his surgical wound was debrided and the sternum was debrided and the wound VAC was applied. There is a positive gram-negative infection with Serratia and the patient is currently on IV Merrem. Also, left-sided chest tube was inserted. The chest tube drained approximately 130 mL of fluid for yesterday since it was placed and another 60 mL for today. The patient's pleural wound VAC has drained approximately 550 mL for yesterday and another 100 mL for today. The patient is afebrile. The patient is hemodynamically stable. The patient went into atrial fibrillation and this morning she converted into sinus and she is back and forth between flutter and sinus rhythm. She is on no pressors. Her INR is at 1.8. No anticoagulation will be offered today. Lasix surgery consultation was obtained for a future muscle flap. Hemoglobin is at 7.7. White cell count is at 16.3. The function is stable with a creatinine of 0.8. She is using incentive spirometer. She has no other complaints otherwise for now. On 12/12/2017, the patient is still doing well. The patient is sitting up in her bed and she is on a BiPAP at a pressure of 14/5 cm of water with an FiO2 of 50%. Her chest x-ray is quite stable and the patient has still a persistent consolidation/opacity in the left lung base. I have scanned the patient earlier this week and the findings the left lung bases consistent with some posterior pericardial effusion, atelectasis and small effusions. For that reason a chest tube was inserted and the total amount of output from the chest tube was 300 mL and since then the output has dropped considerably. The wound VAC is in place and the total amount of output over the past 12 hours as been around 250 mL. The wound cultures are showing gram-negative, the previous fluid drainage was positive for Serratia and the patient is currently on IV Merrem. White cell count is up to 19 and this is something to monitor knowing that her white cell count from yesterday was 16.3. Renal function is stable. She is producing adequate amount of urine output. Abdomen today is at 8.1. She is weak. She is taking approximately 20% of her diet and she is drinking a sure. Her cardiac rhythm is a flutter with 2 to one block and since this morning the patient became progressively more tachycardic. She received an additional amiodarone dose yesterday without much benefit. She is on beta blockers on metoprolol at a dose of 50 mg by mouth twice a day. She became slightly hypotensive yesterday and she was supposed to get albumin which was not given as the patient's blood pressure subsequently improved. She is off anticoagulation awaiting a sternal flap and the patient's INR today is at 1.7. Objective - Vital Signs Vital signs: Vital Signs Temp 97.8 F 12/12/17 08:00 Pulse 131 H 12/12/17 09:00 Resp 21 12/12/17 09:00 BP 126/62 12/12/17 09:00 Pulse Ox 98 12/12/17 09:00 Intake & Output 12/11/17 12/12/17 12/12/17 17:59 06:59 18:59 Intake Total 260 Output Total 50 Balance 210 Weight Intake: IV 60 Sodium Chloride 0.9% 1, 60 000 ml @ 20 mls/hr IV . Q24H [facility] Rx#:[id number] Intake, IV Titration 100 Amount Meropenem 1 gm In Sodium 100 Chloride 0.9% 100 ml @ 100 mls/hr IVPB Q8HR [facility] Rx#:[id number] Oral 100 Output: Chest Tube Drainage Pleural Catheter Left Drainage Anterior Medial Chest Urine 50 Other: Voiding Method ABP, PAP, CO, CI - Last Documented Arterial Blood Pressure 110/60 Pulmonary Artery Pressure 38/33 Cardiac Output 5.8 Cardiac Index 2.9 - Exam The patient is in mild degree of respiratory distress. She is tolerating a full face BiPAP mask without any major difficulties.Head exam was generally normal. There was no scleral icterus or corneal arcus. Mucous membranes were moist.Neck was supple and without jugular venous distension, thyromegaly, or carotid bruits. Carotids were easily palpable bilaterally. There was no adenopathy. The patient has crowding of posterior oropharynx. Mucosal resulted essentially dry. Lungs show diminished breath sounds bilaterally. The patient has a left-sided chest tube in place. The breast on the left lung base is diminished. The anterior sternal wound is debrided and it's open with a wound VAC applied and appropriate dressing applied. The patient has a left- sided chest tube total amount of output since inserted was 300 mL. Heart sounds are regular for now, positive S1-S2 and there is no significant murmurs appreciated. Abdomen is obese soft nontender. No direct tenderness or rebound tenderness or guarding. Extremities reveal trace edema and there is no cyanosis or clubbing at this point. Neurologically the patient is awake and alert 3 and there is no focal neurological deficit. Examination of the skin other than the sternum is dry clean and intact. - Labs CBC & Chem 7: 12/12/17 05:55 12/12/17 05:55 Labs: Abnormal Lab Results - Last 24 Hours (Table) 12/11/17 12/11/17 12/11/17 Range/Units 09:08 12:19 16:42 WBC (3.8-10.6) k/uL RBC (3.80-5.40) m/uL Hgb (11.4-16.0) gm/dL Hct (34.0-46.0) % MCHC (31.0-37.0) g/dL RDW (11.5-15.5) % Neutrophils # (1.3-7.7) k/uL Lymphocytes # (1.0-4.8) k/uL PT (9.0-12.0) sec INR (<1.2) Carbon Dioxide (22-30) mmol/L BUN (7-17) mg/dL POC Glucose (mg/dL) 105 H 110 H 119 H (75-99) mg/dL Calcium (8.4-10.2) mg/dL Magnesium (1.6-2.3) mg/dL AST (14-36) U/L Total Protein (6.3-8.2) g/dL Albumin (3.5-5.0) g/dL 12/11/17 12/12/17 12/12/17 Range/Units 21:39 05:55 05:55 WBC 19.2 H (3.8-10.6) k/uL RBC 2.96 L (3.80-5.40) m/uL Hgb 8.1 L (11.4-16.0) gm/dL Hct 26.2 L (34.0-46.0) % MCHC 30.8 L (31.0-37.0) g/dL RDW 18.3 H (11.5-15.5) % Neutrophils # 17.8 H (1.3-7.7) k/uL Lymphocytes # 0.5 L (1.0-4.8) k/uL PT 15.5 H (9.0-12.0) sec INR 1.7 H (<1.2) Carbon Dioxide (22-30) mmol/L BUN (7-17) mg/dL POC Glucose (mg/dL) 139 H (75-99) mg/dL Calcium (8.4-10.2) mg/dL Magnesium (1.6-2.3) mg/dL AST (14-36) U/L Total Protein (6.3-8.2) g/dL Albumin (3.5-5.0) g/dL 12/12/17 Range/Units 05:55 WBC (3.8-10.6) k/uL RBC (3.80-5.40) m/uL Hgb (11.4-16.0) gm/dL Hct (34.0-46.0) % MCHC (31.0-37.0) g/dL RDW (11.5-15.5) % Neutrophils # (1.3-7.7) k/uL Lymphocytes # (1.0-4.8) k/uL PT (9.0-12.0) sec INR (<1.2) Carbon Dioxide 37 H (22-30) mmol/L BUN 41 H (7-17) mg/dL POC Glucose (mg/dL) (75-99) mg/dL Calcium 8.1 L (8.4-10.2) mg/dL Magnesium 2.5 H (1.6-2.3) mg/dL AST 41 H (14-36) U/L Total Protein 5.1 L (6.3-8.2) g/dL Albumin 2.3 L (3.5-5.0) g/dL Microbiology - Last 24 Hours (Table) 12/10/17 10:50 Gram Stain - Preliminary Chest Tissue Culture - Preliminary Gram Neg Bacilli 12/10/17 10:50 Acid Fast Bacilli Smear - Final Chest Acid Fast Bacilli Culture - Preliminary 12/10/17 10:45 Acid Fast Bacilli Smear - Final Chest Acid Fast Bacilli Culture - Preliminary Assessment and Plan Plan: 1. Severe mitral valve regurgitation, status post mitral valve replacement, with Maze procedure, left atrial appendage exclusion, and one-vessel bypass, postop day 16 2 sternal wound dehiscence/infection with gram-negative infection and the patient has Serratia currently on Merrem. The patient underwent debridement and the wound VAC is applied. She will ultimately need a flap and plastic surgery has been consulted. The patient remains on IV meropenem. Afebrile. White cell count is at 19. Wound VAC remains in place. 3 left basilar atelectasis/small pleural effusion post chest tube insertion, total amount of output was 300 mL and today to stop since. Using incentive spirometer. 4 acute respiratory failure, hypoxic and hypercapnic, tolerating BiPAP without any major difficulties at a pressure of 14/5 cm of water. 5. acute urinary tract infection, urine culture positive for E. coli and Serratia marcescens, was initially treated with Zosyn, now on meropenem 6. Anemia, multifactorial in the patient's hemoglobin is at 8.1 7 paroxysmal atrial flutter with rapid ventricular response currently on beta blockers and oral amiodarone, on no anticoagulation and INR is 1.7 8 left subclavian stenosis 9 leukocytosis 10 obesity 11 previous history of GI bleed 12 pressure ulceration in the back and buttocks, stage III Plan Nothing different could be done for now. 1 thing to consider is to discuss with cardiology to see if there is any other alternatives or treatment interventions regarding the ongoing a flutter. The patient has been cardioverted which succeeded for a short period of time and following that the patient went back to a flutter. Currently she is on a combination of amiodarone and metoprolol. No anticoagulation, awaiting further surgical muscle flap regarding the sternum. Keep the wound VAC. Keep the chest tube for another 24 hours. Continued IV Merrem. Encourage increase diet. Give the patient breaks off the BiPAP. She is very much dependent on BiPAP knowing that she has difficulties with breathing and this is obviously related to her left lung atelectasis and the open sternal wound which got the history due to an infection postop. Encourage increase oral intake. We'll continue to follow and make further recommendations based on her progress. Not evaluation for now. INR is at 1.7. Awaiting plastic surgery evaluation and consultation. ID is on the case. Thoracic surgeries on the case.
[2017-12-12] MEDS: SODIUM CHLORIDE 0.9% 1,000 ML IV SCH (11:37)
[2017-12-12 12:00] LABS: Glucose,Whole Blood 108 mg/dL (75-99)
--- NOTE | 2017-12-12 15:42 | P.PN ---
Subjective Progress Note Date: 12/12/17 Principal diagnosis: Severe mitral valve regurgitation. Coronary artery disease. Preoperative paroxysmal atrial fibrillation on outpatient Coumadin for anticoagulation. Recent hospitalization for lower GI bleed, and duodenal ulcer. History of left subclavian stenosis with stent placement 2014 with recent discovery of critical re-in-stent stenosis. Previous tobacco dependence with preoperative FEV1 60% of predicted. Hypertension. Hyperlipidemia. Depression on Lexapro. Gallbladder disease. Family history of heart disease. Preoperative nasal swab positive for MRSA. Preoperative anemia with hemoglobin. POD #17 Mitral valve replacement using a 25 mm Ribera bioprosthetic tissue valve. Coronary artery bypass grafting 1, a reverse greater saphenous vein graft to the obtuse marginal coronary artery. Endoscopic harvesting of the left greater saphenous vein. Modified MAZE procedure. The report wasn't back yet not back in Ligation of the left atrial appendage using a 40 mm AtriClip. Epi- aortic ultrasound. Intraoperative transesophageal echocardiogram. Intraoperative left ventricular wall tear, an unexpected but potential outcome of surgery. Acute blood loss anemia, an expected outcome given patient's preoperative anemia and intraoperative bleeding. Postoperative prolonged mechanical ventilation secondary to hemodynamic instability, an unexpected but potential outcome of surgery given the extensive nature of her postoperative course. Sternal incision dehiscence, possible outcome of surgery given the patient's obesity, nutrition status and ability. POD #2 sternal wound debridement with placement of wound VAC. Patient is currently sitting in the chair position in bed. She is in no acute distress. She is alert and oriented x 3. She remains complaining of generalized weakness and decreased appetite. She is currently on BiPAP support 14/5, rate of 12, FiO2 50% with oxygen saturations of 98%. She is achieving 250 mL on her incentive spirometry with encouragement. VAC dressing in place to her midline sternal wound. Objective - Vital Signs Vital signs: Vital Signs Temp 97.8 F 12/12/17 12:00 Pulse 119 H 12/12/17 15:00 Resp 24 12/12/17 15:00 BP 106/63 12/12/17 15:00 Pulse Ox 98 12/12/17 15:00 Intake & Output 12/11/17 12/12/17 12/12/17 17:59 06:59 18:59 Intake Total 380 Output Total 260 Balance 120 Weight Intake: IV 180 Sodium Chloride 0.9% 1, 180 000 ml @ 20 mls/hr IV . Q24H [facility] Rx#:[id number] Intake, IV Titration 100 Amount Meropenem 1 gm In Sodium 100 Chloride 0.9% 100 ml @ 100 mls/hr IVPB Q8HR [facility] Rx#:[id number] Oral 100 Output: Chest Tube Drainage 10 Pleural Catheter Left 10 Drainage Anterior Medial Chest Urine 250 Other: Voiding Method Bedpan ABP, PAP, CO, CI - Last Documented Arterial Blood Pressure 110/60 Pulmonary Artery Pressure 38/33 Cardiac Output 5.8 Cardiac Index 2.9 - Constitutional General appearance: Present: cooperative, no acute distress, obese - EENT ENT: Present: hearing grossly normal - Neck Details: Neck is supple, no JVD or lymphadenopathy. - Respiratory Details: Lung sounds are essentially clear throughout, diminished to her bilateral bases. Respirations are symmetrical and nonlabored with BiPAP support. Oxygen saturations 98% on BiPAP settings 14/5, rate of 12, 50% FiO2. She is achieving 250 mL on her incentive spirometry with much encouragement. Left pleural chest tube remains in place to low continuous wall suction -20 cm H2O. No air leak present. Draining thin serosanguineous drainage. 50 mL output in the last 24 hours. - Cardiovascular Details: Regular rhythm and tachycardic rate. S1 and S2 present, negative for S3, gallop or murmur. Bedside telemetry showing atrial flutter with heart rate 123. Wound VAC in place to her sternal wound, medium intensity, 125 mmHg pressure, continuous mode. Knee-high DANITZA hose and sequential compression devices in place to bilateral lower extremities. Left antecubital PICC line in place and patent. Generalized +1 -+2 edema present. - Gastrointestinal Gastrointestinal Comment(s): Abdomen is soft, nontender and nondistended. Active bowel sounds all 4 abdominal quadrants. Tolerating minimal oral intake. Last bowel movement 12/09. - Genitourinary Genitourinary Comment(s): Purwick catheter in place, voiding clear yellow urine. 450 mL output in the last 8 hours. - Integumentary Integumentary Comment(s): Skin is warm and dry. No clubbing or cyanosis present. Midline sternal wound with wound VAC in place. Wound VAC evacuating thin serosanguineous drainage. Left leg EVH site clean dry and well approximated. No redness or drainage present. Small Colloid dressing clean and dry to her bridge of her nose. - Neurologic Neurologic: Present: CNII-XII intact - Musculoskeletal Musculoskeletal: Present: generalized weakness, strength equal bilaterally - Psychiatric Psychiatric Comment(s): Flat defect Psychiatric: Present: A&O x's 3, intact judgment & insight - Allied health notes Allied health notes reviewed: nursing - Labs CBC & Chem 7: 12/12/17 05:55 12/12/17 05:55 Labs: Abnormal Lab Results - Last 24 Hours (Table) 12/11/17 12/11/17 12/12/17 Range/Units 16:42 21:39 05:55 WBC 19.2 H (3.8-10.6) k/uL RBC 2.96 L (3.80-5.40) m/uL Hgb 8.1 L (11.4-16.0) gm/dL Hct 26.2 L (34.0-46.0) % MCHC 30.8 L (31.0-37.0) g/dL RDW 18.3 H (11.5-15.5) % Neutrophils # 17.8 H (1.3-7.7) k/uL Lymphocytes # 0.5 L (1.0-4.8) k/uL PT (9.0-12.0) sec INR (<1.2) Carbon Dioxide (22-30) mmol/L BUN (7-17) mg/dL POC Glucose (mg/dL) 119 H 139 H (75-99) mg/dL Calcium (8.4-10.2) mg/dL Magnesium (1.6-2.3) mg/dL AST (14-36) U/L Total Protein (6.3-8.2) g/dL Albumin (3.5-5.0) g/dL 12/12/17 12/12/17 12/12/17 Range/Units 05:55 05:55 11:58 WBC (3.8-10.6) k/uL RBC (3.80-5.40) m/uL Hgb (11.4-16.0) gm/dL Hct (34.0-46.0) % MCHC (31.0-37.0) g/dL RDW (11.5-15.5) % Neutrophils # (1.3-7.7) k/uL Lymphocytes # (1.0-4.8) k/uL PT 15.5 H (9.0-12.0) sec INR 1.7 H (<1.2) Carbon Dioxide 37 H (22-30) mmol/L BUN 41 H (7-17) mg/dL POC Glucose (mg/dL) 108 H (75-99) mg/dL Calcium 8.1 L (8.4-10.2) mg/dL Magnesium 2.5 H (1.6-2.3) mg/dL AST 41 H (14-36) U/L Total Protein 5.1 L (6.3-8.2) g/dL Albumin 2.3 L (3.5-5.0) g/dL Microbiology - Last 24 Hours (Table) 12/10/17 10:40 Anaerobic Culture - Preliminary Chest 12/10/17 10:45 Anaerobic Culture - Preliminary Chest 12/10/17 10:45 Gram Stain - Preliminary Chest Tissue Culture - Preliminary Gram Neg Bacilli 12/10/17 10:40 Gram Stain - Preliminary Chest Wound Culture - Preliminary Gram Neg Bacilli 12/10/17 10:50 Gram Stain - Preliminary Chest Tissue Culture - Preliminary Gram Neg Bacilli 12/10/17 10:50 Acid Fast Bacilli Smear - Final Chest Acid Fast Bacilli Culture - Preliminary - Imaging and Cardiology Chest x-ray: report reviewed, image reviewed Assessment and Plan (1) Acute blood loss as cause of postoperative anemia Current Visit: Yes Status: Acute Code(s): D62 - ACUTE POSTHEMORRHAGIC ANEMIA SNOMED Code(s): 03810666256123734 (2) CAD (coronary artery disease) Current Visit: Yes Status: Chronic Code(s): I25.10 - ATHSCL HEART DISEASE OF [place] CORONARY ARTERY W/O ANG PCTRS SNOMED Code(s): 46856268 (3) Family history of coronary artery disease Current Visit: Yes Status: Chronic Code(s): Z82.49 - FAMILY HX OF I[place]HE[place] HEART DIS AND OTH DIS OF THE CIRC SYS SNOMED Code(s): 024565827 (4) Hyperlipidemia Current Visit: Yes Status: Chronic Code(s): E78.5 - HYPERLIPIDEMIA, UNSPECIFIED SNOMED Code(s): 94544060 (5) Hypertension Current Visit: Yes Status: Chronic Code(s): I10 - ESSENTIAL (PRIMARY) HYPERTENSION SNOMED Code(s): 65966013 (6) Severe mitral regurgitation Current Visit: Yes Status: Chronic Code(s): I34.0 - NONRHEUMATIC MITRAL ( VALVE) INSUFFICIENCY SNOMED Code(s): 27723863 (7) Stenosis of left subclavian artery Current Visit: Yes Status: Chronic Code(s): I77.1 - STRICTURE OF ARTERY SNOMED Code(s): 74696722629904916 (8) PAD (peripheral artery disease) Current Visit: No Status: Acute Code(s): I73.9 - PERIPHERAL VASCULAR DISEASE , UNSPECIFIED SNOMED Code(s): 035146888 (9) History of GI bleed Current Visit: No Status: Resolved Code(s): Z87.19 - PERSONAL HISTORY OF OTHER DISEASES OF THE DIGESTIVE SYSTEM SNOMED Code(s): 397115266 (10) Paroxysmal atrial fibrillation Current Visit: No Status: Resolved Code(s): I48.0 - PAROXYSMAL ATRIAL FIBRILLATION SNOMED Code(s): 423448962 (11) Elevated aspartate aminotransferase level Current Visit: Yes Status: Acute Code(s): R74.0 - NONSPEC ELEV OF LEVELS OF TRANSAMNS & LACTIC ACID DEHYDRGNSE SNOMED Code(s): 539357843 Plan: 1. Continue low-dose aspirin, statin, subcutaneous heparin, beta krunal. Will increase beta krunal therapy as tolerated. 2. Continue amiodarone for history of paroxysmal atrial fibrillation on home amiodarone. Patient returned to atrial flutter after sternal wound debridement , no current plan for for further cardioversion per Dr. Crawley. No further amiodarone boluses per Dr. Crawley. 3. Wean O2 as tolerated. BiPAP management per pulmonology. Encourage incentive spirometry use 10x every hour. 4. Urine culture from December 04 was positive for E. coli and Serratia, was treated with IV meropenem. IV antibiotic management per Dr. Olivera. 5. Sternal incision cultured, consistent with Serratia. Placed on meropenem per Dr. Olivera. Wound VAC in place to be changed Wednesday, Wednesday, and Fridays. Dr. Krause consulted for future wound flap closure. Sternal debridement tissue specimen Gram stain showing gram-negative bacilli. 6. Will monitor labs, chest x-rays. 7. Bronchodilators per pulmonology. 8. We will hold Coumadin for now until definitive plan for muscle flap closure to her sternum. 9. GI/DVT prophylaxis. 10. Increase activity as tolerated. PT/OT/cardiac rehab following. 11. Keep patient in the ICU for close monitoring. 12. Continue Purwick catheter. 13. Encourage nutrition, calorie count recommendations per dietitian. 14. More recommendations as patient progresses in her care. Time with Patient: Greater than 30
--- NOTE | 2017-12-12 16:06 | P.PN ---
Subjective Principal diagnosis: Patient is back in atrial tachycardia. Heart rates 130 beats a minute on a BiPAP mask. Short of breath actually looks better than yesterday Breath sounds are reduced bilaterally heart sounds are distant Edema of the extremities Impression CAD status post bypass surgery Status post maze procedure and postoperative atrial fibrillation atrial tachycardia Mitral valve replacement Sternal wound dehiscence awaiting a flap Suggest Restart Coumadin Discussed with [employer] Objective - Vital Signs Vital signs: Vital Signs Temp 97.8 F 12/12/17 12:00 Pulse 135 H 12/12/17 15:58 Resp 24 12/12/17 15:00 BP 106/63 12/12/17 15:00 Pulse Ox 98 12/12/17 15:00 Intake & Output 12/11/17 12/12/17 12/12/17 17:59 06:59 18:59 Intake Total 380 Output Total 260 Balance 120 Weight Intake: IV 180 Sodium Chloride 0.9% 1, 180 000 ml @ 20 mls/hr IV . Q24H [facility] Rx#:[id number] Intake, IV Titration 100 Amount Meropenem 1 gm In Sodium 100 Chloride 0.9% 100 ml @ 100 mls/hr IVPB Q8HR [facility] Rx#:[id number] Oral 100 Output: Chest Tube Drainage 10 Pleural Catheter Left 10 Drainage Anterior Medial Chest Urine 250 Other: Voiding Method Bedpan ABP, PAP, CO, CI - Last Documented Arterial Blood Pressure 110/60 Pulmonary Artery Pressure 38/33 Cardiac Output 5.8 Cardiac Index 2.9 - Labs CBC & Chem 7: 12/12/17 05:55 12/12/17 05:55 Labs: Abnormal Lab Results - Last 24 Hours (Table) 12/11/17 12/11/17 12/12/17 Range/Units 16:42 21:39 05:55 WBC 19.2 H (3.8-10.6) k/uL RBC 2.96 L (3.80-5.40) m/uL Hgb 8.1 L (11.4-16.0) gm/dL Hct 26.2 L (34.0-46.0) % MCHC 30.8 L (31.0-37.0) g/dL RDW 18.3 H (11.5-15.5) % Neutrophils # 17.8 H (1.3-7.7) k/uL Lymphocytes # 0.5 L (1.0-4.8) k/uL PT (9.0-12.0) sec INR (<1.2) Carbon Dioxide (22-30) mmol/L BUN (7-17) mg/dL POC Glucose (mg/dL) 119 H 139 H (75-99) mg/dL Calcium (8.4-10.2) mg/dL Magnesium (1.6-2.3) mg/dL AST (14-36) U/L Total Protein (6.3-8.2) g/dL Albumin (3.5-5.0) g/dL 12/12/17 12/12/17 12/12/17 Range/Units 05:55 05:55 11:58 WBC (3.8-10.6) k/uL RBC (3.80-5.40) m/uL Hgb (11.4-16.0) gm/dL Hct (34.0-46.0) % MCHC (31.0-37.0) g/dL RDW (11.5-15.5) % Neutrophils # (1.3-7.7) k/uL Lymphocytes # (1.0-4.8) k/uL PT 15.5 H (9.0-12.0) sec INR 1.7 H (<1.2) Carbon Dioxide 37 H (22-30) mmol/L BUN 41 H (7-17) mg/dL POC Glucose (mg/dL) 108 H (75-99) mg/dL Calcium 8.1 L (8.4-10.2) mg/dL Magnesium 2.5 H (1.6-2.3) mg/dL AST 41 H (14-36) U/L Total Protein 5.1 L (6.3-8.2) g/dL Albumin 2.3 L (3.5-5.0) g/dL Microbiology - Last 24 Hours (Table) 12/10/17 10:40 Anaerobic Culture - Preliminary Chest 12/10/17 10:45 Anaerobic Culture - Preliminary Chest 12/10/17 10:45 Gram Stain - Preliminary Chest Tissue Culture - Preliminary Gram Neg Bacilli 12/10/17 10:40 Gram Stain - Preliminary Chest Wound Culture - Preliminary Gram Neg Bacilli 12/10/17 10:50 Gram Stain - Preliminary Chest Tissue Culture - Preliminary Gram Neg Bacilli 12/10/17 10:50 Acid Fast Bacilli Smear - Final Chest Acid Fast Bacilli Culture - Preliminary
[2017-12-12 17:07] LABS: Glucose,Whole Blood 134 mg/dL (75-99)
[2017-12-12] MEDS ORDERED: WARFARIN 2 MG TAB PO ONE (18:00)
--- NOTE | 2017-12-12 18:02 | PN ---
PROGRESS NOTE DATE OF SERVICE: 12/12/17 The patient remains in ICU. Her vital signs: Temperature 97.8, pulse 139, respiration 21, blood pressure 126/62, O2 saturation 98%. GENERAL EXAM: Patient is in mild respiratory distress. She is on full face BiPAP mask. HEENT: Atraumatic, normocephalic. Pupils equal and reactive to light. Extraocular movements intact. Buccal mucosa is fair. Neck is supple without any goiter or lymphadenopathy. JVD is negative. No carotid bruit heard. LUNGS: Decreased breath sounds bilaterally. Patient has left-sided chest tube in place. Heart is regular rate and rhythm without any murmurs, gallop rhythm. Abdomen is soft, nontender, nondistended. Bowel sounds positive. EXTREMITIES: No edema, clubbing, cyanosis. Pulses are palpable. NEUROLOGICAL EXAM: Patient is awake, alert, oriented x3. No gross motor or sensory deficit. SKIN: Patient has a wound VAC on chest. Other than that, skin is dry and intact. LAB: CBC: White blood count of 19.2, hemoglobin 8.1, hematocrit 26.2, and platelet count of 311. Chemical profile: Sodium 140, potassium 4.0, chloride 99, bicarb 37, BUN 41, creatinine 0.7, glucose 92. ASSESSMENT: 1. Severe mitral valve regurg. Patient is status post mitral valve replacement, postoperative day #16. 2. Wound dehiscence with the gram-negative infection. Patient remains on IV antibiotics. Wound VAC applied to the sternal wound. The patient needs a flap and plastic surgeon has been consulted for that. She remains on IV Merrem. 3. Left basilar atelectasis and pleural effusion. The patient has chest tube in place. According to the ICU staff, she has total output of 300 mL today. 4. Acute hypoxemic and hypercapnic respiratory failure. Patient remains on BiPAP. 5. Urinary tract infection with culture showing the E coli. Patient remains on IV antibiotics, IV Merrem. The patient remains in ICU. We will continue to follow patient's clinical progress and further recommendations depending on clinical course. MMODL / IJN: [id number] /
[2017-12-12 20:09] LABS: Glucose,Whole Blood 191 mg/dL (75-99)
[2017-12-12] MEDS: SENNOSIDES-DOCUSATE SODIUM 1 EACH TAB PO SCH (20:16)
[2017-12-12] MEDS: ESCITALOPRAM 10 MG TAB PO SCH (20:16)
[2017-12-13] MEDS: MEROPENEM 1 GM in SODIUM CHLORIDE 0.9% 100 ML IVPB SCH ×3 (00:42→17:25)
[2017-12-13] MEDS: HEPARIN SODIUM,PORCINE 5,000 UNIT/ML 1 ML VIAL SQ SCH ×3 (00:42→17:22)
[2017-12-13] MEDS: HYDROcodone/APAP 5-325MG 1 EACH TAB PO PRN ×3 (04:16→15:08)
[2017-12-13 05:11] LABS: Anisocytosis Slight; Basophils % (A) 0 %; Eosinophils % (A) 0 %; HCT 28.1 % (34.0-46.0); HGB 8.6 gm/dL (11.4-16.0); Hypochromasia Marked; Lymphocytes # (A) 0.5 k/uL (1.0-4.8); Lymphocytes % (A) 2 %; MCH 27.1 pg (25.0-35.0); MCHC 30.5 g/dL (31.0-37.0); MCV 88.9 fL (80.0-100.0); Mean Platelet Volume 7.6; Monocytes # (A) 0.9 k/uL (0-1.0); Monocytes % (A) 4 %; Neutrophils # (A) 22.9 k/uL (1.3-7.7); Neutrophils % (A) 93 %; Platelet Count 319 k/uL (150-450); Poikilocytosis Moderate; RBC 3.17 m/uL (3.80-5.40); RDW 18.5 % (11.5-15.5); WBC 24.6 k/uL (3.8-10.6)
[2017-12-13 05:25] LABS: ALT 43 U/L (9-52); AST 53 U/L (14-36); Albumin 2.4 g/dL (3.5-5.0); Alkaline Phosphatase 89 U/L (38-126); Anion Gap 4 mmol/L; Blood Urea Nitrogen 43 mg/dL (7-17); Calcium 8.2 mg/dL (8.4-10.2); Carbon Dioxide 37 mmol/L (22-30); Chloride 100 mmol/L (98-107); Glucose 90 mg/dL (74-99); Magnesium 2.5 mg/dL (1.6-2.3); Phosphorus 2.3 mg/dL (2.5-4.5); Potassium 4.6 mmol/L (3.5-5.1); Sodium 141 mmol/L (137-145); Total Bilirubin 0.6 mg/dL (0.2-1.3); Total Protein 5.4 g/dL (6.3-8.2)
[2017-12-13 05:48] LABS: INR 1.8 (<1.2); Prothrombin Time 16.2 sec (9.0-12.0)
[2017-12-13] MEDS ORDERED: SODIUM PHOSPHATE 10 MMOL in SODIUM CHLORIDE 0.9% 100 ML IVPB ONE (07:00)
[2017-12-13] MEDS: IPRATROPIUM-ALBUTEROL 3 ML NEB INHALATION SCH ×4 (07:46→19:51)
[2017-12-13] MEDS: BUDESONIDE 1 MG/2 ML NEBU INHALATION SCH ×2 (07:46→19:51)
[2017-12-13 08:05] LABS: Glucose,Whole Blood 173 mg/dL (75-99)
[2017-12-13] MEDS: AMIODARONE 200 MG TAB PO SCH ×2 (09:12→20:29)
[2017-12-13] MEDS: INSULIN ASPART 100 UNIT/ML 1 ML 10 ML VIAL SQ SCH ×4 (09:13→20:29)
[2017-12-13] MEDS: ATORVASTATIN 40 MG TAB PO SCH (09:13)
[2017-12-13] MEDS: PANTOPRAZOLE 40 MG TABLET PO SCH (09:13)
[2017-12-13] MEDS: METOPROLOL TARTRATE 50 MG TAB PO SCH ×2 (09:13→22:31)
[2017-12-13] MEDS: ASPIRIN 81 MG PO SCH (09:13)
--- NOTE | 2017-12-13 09:24 | XR ---
EXAMINATION TYPE: XR chest 1V portable DATE OF EXAM: 12/13/2017 COMPARISON: 12/12/2017 HISTORY: Post cardiac surgery TECHNIQUE: Single frontal view of the chest is obtained. FINDINGS: Vascular stent, cardiomegaly and postsurgical changes are seen. Left-sided chest tube stab le persistent near complete opacification left hemithorax. Right-sided pleural effusion and consolida tion stable. Underlying venous congestion not excluded. IMPRESSION: 1. There is mild progression within the left upper lobe relative to the recently described pleural-pa renchymal changes.
[2017-12-13] MEDS: SODIUM CHLORIDE 0.9% 1,000 ML IV SCH (09:49)
--- NOTE | 2017-12-13 10:18 | P.PN ---
Subjective Progress Note Date: 12/13/17 Principal diagnosis: Severe mitral regurgitation. Coronary artery disease. Paroxysmal atrial fibrillation on Coumadin for anticoagulation. Recent hospitalization for lower GI bleed, duodenal ulcer. History of left subclavian stenosis with stent placement 2014 with recent discovery of critical re-in-stent stenosis. Previous tobacco dependence with preoperative FEV1 60% of predicted. Hypertension. Hyperlipidemia. Gallbladder disease. Family history of heart disease. Preoperative nasal swab positive for MRSA. Preoperative anemia. POD #18 mitral valve replacement using a 25 mm Ribera bioprosthetic tissue valve. Coronary artery bypass grafting 1, reverse saphenous vein graft to the obtuse marginal artery. Maze procedure. Endoscopic harvesting of the right greater saphenous vein. Epi-aortic ultrasound. Intraoperative transesophageal echocardiogram. Ligation of the left atrial appendage using a 40 mm AtriClip. Intraoperative left ventricular wall tear, an unexpected but potential outcome of surgery Acute blood loss anemia, and expected outcome given patient's preoperative anemia and intraoperative bleeding. Postoperative prolonged mechanical ventilation secondary to hemodynamic instability, and unexpected but potential outcome of surgery given the extensive nature of her perioperative course Sternal incision dehiscence, a possible outcome of surgery given patient's obesity, nutrition status, debility POD #3 sternal wound debridement with placement of wound VAC. The patient's currently sitting up in bed in no acute distress although she does become dyspneic with any activity and does take quite some time to recover. She does complain of weakness and decreased appetite. Wound VAC in place, left pleural chest tube in place. Objective - Vital Signs Vital signs: Vital Signs Temp 98.0 F 12/13/17 08:00 Pulse 141 H 12/13/17 09:00 Resp 29 H 12/13/17 09:00 BP 100/72 12/13/17 09:00 Pulse Ox 99 12/13/17 09:00 Intake & Output 12/12/17 12/13/17 12/13/17 18:59 06:59 18:59 Intake Total 560 300 160 Output Total 360 265 410 Balance 200 35 -250 Weight 101.6 kg Intake: IV 360 300 160 Meropenem 1 gm In Sodium 100 100 100 Chloride 0.9% 100 ml @ 100 mls/hr IVPB Q8HR [facility] Rx#:[id number] Sodium Chloride 0.9% 1, 260 200 60 000 ml @ 20 mls/hr IV . Q24H [facility] Rx#:[id number] Intake, IV Titration 100 Amount Meropenem 1 gm In Sodium 100 Chloride 0.9% 100 ml @ 100 mls/hr IVPB Q8HR [facility] Rx#:[id number] Oral 100 Output: Chest Tube Drainage 10 20 Pleural Catheter Left 10 20 Drainage 300 Medial Chest Incision - 300 Woundvac Urine 350 265 90 Other: Voiding Method Bedpan Bedpan # Voids 1 # Bowel Movements 1 ABP, PAP, CO, CI - Last Documented Arterial Blood Pressure 110/60 Pulmonary Artery Pressure 38/33 Cardiac Output 5.8 Cardiac Index 2.9 - Constitutional General appearance: Present: cooperative, no acute distress - Respiratory Details: Lungs sounds diminished bilaterally, left greater than right. Respirations even , slightly tachypneic. Currently on BiPAP 14/5, FiO2 50% with oxygen saturation 100%. Left pleural chest tube to continuous wall suction, 20 mL thin serosanguineous drainage overnight, 60 mL on the last 24 hours, no air leak present. - Cardiovascular Details: S1-S2 present. Regular, tachycardia rate and rhythm, uncontrolled atrial flutter on telemetry. Sternal incision currently open with wound VAC in place. Palpable peripheral pulses bilaterally. Trace bilateral lower extremity edema present. No calf pain or tenderness noted. Antiembolism stockings, SCDs present. Left brachial PICC line present. - Gastrointestinal Gastrointestinal Comment(s): Abdomen soft, nontender, nondistended. Active bowel sounds 4 quadrants. Tolerating minimal diet. Positive bowel movement. - Genitourinary Genitourinary Comment(s): Mason replaced this morning. Clear, yellow urine present. - Integumentary Integumentary Comment(s): Skin is warm and dry. Wound VAC in place over sternal incision. Patient does have stage II wound on her coccyx with local wound care management. - Neurologic Neurologic: Present: CNII-XII intact - Musculoskeletal Musculoskeletal: Present: generalized weakness, strength equal bilaterally - Psychiatric Psychiatric: Present: A&O x's 3, appropriate affect, intact judgment & insight - Allied health notes Allied health notes reviewed: nursing - Labs CBC & Chem 7: 12/13/17 04:34 12/13/17 04:34 Labs: Abnormal Lab Results - Last 24 Hours (Table) 12/12/17 12/12/17 12/12/17 Range/Units 11:58 17:05 20:07 WBC (3.8-10.6) k/uL RBC (3.80-5.40) m/uL Hgb (11.4-16.0) gm/dL Hct (34.0-46.0) % MCHC (31.0-37.0) g/dL RDW (11.5-15.5) % Neutrophils # (1.3-7.7) k/uL Lymphocytes # (1.0-4.8) k/uL PT (9.0-12.0) sec INR (<1.2) Carbon Dioxide (22-30) mmol/L BUN (7-17) mg/dL POC Glucose (mg/dL) 108 H 134 H 191 H (75-99) mg/dL Calcium (8.4-10.2) mg/dL Phosphorus (2.5-4.5) mg/dL Magnesium (1.6-2.3) mg/dL AST (14-36) U/L Total Protein (6.3-8.2) g/dL Albumin (3.5-5.0) g/dL 12/13/17 12/13/17 12/13/17 Range/Units 04:34 04:34 05:27 WBC 24.6 H (3.8-10.6) k/uL RBC 3.17 L (3.80-5.40) m/uL Hgb 8.6 L (11.4-16.0) gm/dL Hct 28.1 L (34.0-46.0) % MCHC 30.5 L (31.0-37.0) g/dL RDW 18.5 H (11.5-15.5) % Neutrophils # 22.9 H (1.3-7.7) k/uL Lymphocytes # 0.5 L (1.0-4.8) k/uL PT 16.2 H (9.0-12.0) sec INR 1.8 H (<1.2) Carbon Dioxide 37 H (22-30) mmol/L BUN 43 H (7-17) mg/dL POC Glucose (mg/dL) (75-99) mg/dL Calcium 8.2 L (8.4-10.2) mg/dL Phosphorus 2.3 L (2.5-4.5) mg/dL Magnesium 2.5 H (1.6-2.3) mg/dL AST 53 H (14-36) U/L Total Protein 5.4 L (6.3-8.2) g/dL Albumin 2.4 L (3.5-5.0) g/dL 12/13/17 Range/Units 07:45 WBC (3.8-10.6) k/uL RBC (3.80-5.40) m/uL Hgb (11.4-16.0) gm/dL Hct (34.0-46.0) % MCHC (31.0-37.0) g/dL RDW (11.5-15.5) % Neutrophils # (1.3-7.7) k/uL Lymphocytes # (1.0-4.8) k/uL PT (9.0-12.0) sec INR (<1.2) Carbon Dioxide (22-30) mmol/L BUN (7-17) mg/dL POC Glucose (mg/dL) 173 H (75-99) mg/dL Calcium (8.4-10.2) mg/dL Phosphorus (2.5-4.5) mg/dL Magnesium (1.6-2.3) mg/dL AST (14-36) U/L Total Protein (6.3-8.2) g/dL Albumin (3.5-5.0) g/dL Microbiology - Last 24 Hours (Table) 12/10/17 10:50 Gram Stain - Final Chest Tissue Culture - Final Serratia marcescens 12/10/17 10:50 Anaerobic Culture - Preliminary Chest 12/10/17 10:40 Anaerobic Culture - Preliminary Chest 12/10/17 10:45 Anaerobic Culture - Preliminary Chest 12/10/17 10:45 Gram Stain - Preliminary Chest Tissue Culture - Preliminary Gram Neg Bacilli 12/10/17 10:40 Gram Stain - Preliminary Chest Wound Culture - Preliminary Gram Neg Bacilli - Imaging and Cardiology Chest x-ray: report reviewed, image reviewed Assessment and Plan (1) Acute blood loss anemia Current Visit: Yes Status: Acute Code(s): D62 - ACUTE POSTHEMORRHAGIC ANEMIA SNOMED Code(s): 279222528 (2) CAD (coronary artery disease) Current Visit: Yes Status: Chronic Code(s): I25.10 - ATHSCL HEART DISEASE OF [place] CORONARY ARTERY W/O ANG PCTRS SNOMED Code(s): 15557340 (3) Hyperlipidemia Current Visit: Yes Status: Chronic Code(s): E78.5 - HYPERLIPIDEMIA, UNSPECIFIED SNOMED Code(s): 88636171 (4) Hypertension Current Visit: Yes Status: Chronic Code(s): I10 - ESSENTIAL (PRIMARY) HYPERTENSION SNOMED Code(s): 86478805 (5) Severe mitral regurgitation Current Visit: Yes Status: Chronic Code(s): I34.0 - NONRHEUMATIC MITRAL ( VALVE) INSUFFICIENCY SNOMED Code(s): 85325845 (6) Stenosis of left subclavian artery Current Visit: Yes Status: Chronic Code(s): I77.1 - STRICTURE OF ARTERY SNOMED Code(s): 83078340739940791 (7) Paroxysmal atrial fibrillation Current Visit: No Status: Resolved Code(s): I48.0 - PAROXYSMAL ATRIAL FIBRILLATION SNOMED Code(s): 044399674 (8) History of GI bleed Current Visit: No Status: Resolved Code(s): Z87.19 - PERSONAL HISTORY OF OTHER DISEASES OF THE DIGESTIVE SYSTEM SNOMED Code(s): 844428178 (9) Family history of coronary artery disease Current Visit: Yes Status: Chronic Code(s): Z82.49 - FAMILY HX OF ISCHEM HEART DIS AND OTH DIS OF THE CIRC SYS SNOMED Code(s): 548212688 Plan: 1. Continue baby aspirin, statin, subcutaneous heparin, beta krunal. Will increase beta krunal therapy as tolerated. 2. Continue amiodarone for history of paroxysmal atrial fibrillation on home amiodarone. 3. Wean O2 as tolerated. BiPAP management per pulmonology. Encourage incentive spirometry use 10x every hour. 4. Urine culture from December 04 was positive for E. coli and Serratia, was treated with IV Zosyn. 5. Sternal incision cultured, consistent with Serratia. Placed on meropenem per Dr. Olivera. Wound VAC in place to be changed Wednesday, Wednesday, and Fridays. Dr. Krause consulted future wound flap closure, current plans for next week, date to be determined. 6. Will monitor labs, chest x-rays. 7. Bronchodilators, steroids per pulmonology. 8. CT of chest ordered to evaluate left pleural space. 9. Daily Coumadin dosing per PT and INR. Cardiothoracic surgery to manage while inpatient, outpatient management to be done by cardiology. Will hold off on Coumadin for now as patient is preparing for repeat surgery next week. 10. GI/DVT prophylaxis. 11. Increase activity as tolerated. PT/OT/cardiac rehab following. 12. Encourage nutrition, calorie count recommendations per dietitian. 13. Keep patient in the ICU for close monitoring. 14. More recommendations as patient progresses. Time with Patient: Greater than 30
--- NOTE | 2017-12-13 10:48 | CT ---
EXAMINATION TYPE: CT chest wo con DATE OF EXAM: 12/13/2017 COMPARISON: 12/08/2017 HISTORY: 67-year-old female Abn CXR, evaluate left pleural cavity TECHNIQUE: Contiguous axial scanning of the chest without IV contrast. Coronal and sagittal reconstru ctions performed. CT DLP: 528.2 mGycm Automated exposure control for dose reduction was used. FINDINGS: Postoperative changes with a mitral valve replacement and median sternotomy are present. As compared to 12/08/2017, there appears to have been interval sternal resection and interposed wound with associat ed soft tissue thickening and anterior chest wall defect. While the heart is normal size, there is a moderate to large pericardial effusion. Similar thickness along the left heart margin a 2.7 cm with increasing thickness along the right heart margin now 1.7 c m versus 1 cm, previously. Aorta normal caliber with a conventional arch vessel branching anatomy. Redemonstrated vascular stent proximal left subclavian artery. Left PICC tip is at the mid SVC level. Small right pleural effusion with a subsegmental right basilar atelectasis remains. A left chest tube is now present. There is continued moderate pleural effusion with a persistent subp ulmonic component and now effusion extending more superiorly towards the apex. A loculated component of the effusion is suggested measuring 3.1 cm along the peripheral left upper lobe due to convex chester ins. Suspect some enlarging loculated pleural fluid medial left apex measuring 1.7 cm thick. There is essentially near complete collapse of the left lung with only a small portion of the upper l obe aerated. Visualized upper abdomen shows dependent sludge or gravel in the gallbladder. Bones: Endplate spondylosis mid to lower thoracic spine. Sternal excision changes as mentioned above. IMPRESSION: 1. INTERVAL STERNAL RESECTION AND ASSOCIATED WOUND. 2. ENLARGING MODERATE TO LARGE PERICARDIAL EFFUSION MEASURING 2.7 CM THICK ALONG THE LEFT HEART ANASTACIA N (SIMILAR) BUT INCREASING ALONG THE RIGHT HEART MARGIN NOW MEASURING 1.7 CM (VERSUS 1 CM, PREVIOUSLY ). 3. A MODERATE LEFT PLEURAL EFFUSION PERSISTS DESPITE THE PRESENCE OF THE CHEST TUBE. THERE IS A SUBPU LMONIC COMPONENT AND INCREASING EFFUSION EXTENDING UP TO THE APEX LIKELY WITH A LOCULATED COMPONENT M EASURING 3.1 CM PERIPHERALLY IN THE UPPER LOBE AND ALSO AT THE MEDIAL APEX MEASURING 1.7 CM THICK. 4. NEAR COMPLETE COLLAPSE OF THE LEFT LUNG. ONLY A SMALL PORTION OF THE UPPER LOBE REMAINS AERATED. 5. SIMILAR SMALL RIGHT EFFUSION WITH ADJACENT ATELECTASIS.
[2017-12-13 12:17] LABS: Glucose,Whole Blood 90 mg/dL (75-99)
[2017-12-13] MEDS ORDERED: VANCOMYCIN IV PER PHARMACY 1 EACH MISC MISCELLANE PRN (12:38)
--- NOTE | 2017-12-13 12:57 | P.PN ---
Subjective Progress Note Date: 12/13/17 Principal diagnosis: Status post mitral valve replacement with maze procedure postoperative day #17. On 12/11/2017 I'm seeing this patient for a follow-up. The patient is this morning, comfortable in the BiPAP. She is using the BiPAP on and off during the day. She was taken to the operating room where his surgical wound was debrided and the sternum was debrided and the wound VAC was applied. There is a positive gram-negative infection with Serratia and the patient is currently on IV Merrem. Also, left-sided chest tube was inserted. The chest tube drained approximately 130 mL of fluid for yesterday since it was placed and another 60 mL for today. The patient's pleural wound VAC has drained approximately 550 mL for yesterday and another 100 mL for today. The patient is afebrile. The patient is hemodynamically stable. The patient went into atrial fibrillation and this morning she converted into sinus and she is back and forth between flutter and sinus rhythm. She is on no pressors. Her INR is at 1.8. No anticoagulation will be offered today. Lasix surgery consultation was obtained for a future muscle flap. Hemoglobin is at 7.7. White cell count is at 16.3. The function is stable with a creatinine of 0.8. She is using incentive spirometer. She has no other complaints otherwise for now. On 12/12/2017, the patient is still doing well. The patient is sitting up in her bed and she is on a BiPAP at a pressure of 14/5 cm of water with an FiO2 of 50%. Her chest x-ray is quite stable and the patient has still a persistent consolidation/opacity in the left lung base. I have scanned the patient earlier this week and the findings the left lung bases consistent with some posterior pericardial effusion, atelectasis and small effusions. For that reason a chest tube was inserted and the total amount of output from the chest tube was 300 mL and since then the output has dropped considerably. The wound VAC is in place and the total amount of output over the past 12 hours as been around 250 mL. The wound cultures are showing gram-negative, the previous fluid drainage was positive for Serratia and the patient is currently on IV Merrem. White cell count is up to 19 and this is something to monitor knowing that her white cell count from yesterday was 16.3. Renal function is stable. She is producing adequate amount of urine output. Abdomen today is at 8.1. She is weak. She is taking approximately 20% of her diet and she is drinking a sure. Her cardiac rhythm is a flutter with 2 to one block and since this morning the patient became progressively more tachycardic. She received an additional amiodarone dose yesterday without much benefit. She is on beta blockers on metoprolol at a dose of 50 mg by mouth twice a day. She became slightly hypotensive yesterday and she was supposed to get albumin which was not given as the patient's blood pressure subsequently improved. She is off anticoagulation awaiting a sternal flap and the patient's INR today is at 1.7. Patient was reevaluated today on 12/13/2017, remains with very marginal pulmonary status, remains on BiPAP, FiO2 of 50%, IPAP of 14 and EPAP of 5. Chest x-ray seems to be worsening, CT of the chest is also worsening there is also a near-complete collapse of the left lung, only a small portion of the upper lobe remains aerated. Small pleural effusions noted, and what is worsening is the fact that she has an enlarging moderate to large pericardial effusion measuring 2.7 cm in thickness. This is along the left heart margin but increasing along the right heart margin measuring now 1.7 cm compared to 1 cm previously. Considering the findings, I felt strongly that the patient may benefit from bronchoscopy and left lung evaluation, however with the finding of increasing pericardial effusion, may have to be seen by thoracic surgery and consider a pericardial window. Her labs were reviewed, WBC count is 24.6 hemoglobin is 8.6 and her INR is 1.8. Patient is noted to be a bit dyspneic on BiPAP at 50%. Objective - Vital Signs Vital signs: Vital Signs Temp 98.3 F 12/13/17 12:39 Pulse 111 H 12/13/17 12:39 Resp 29 H 12/13/17 12:39 BP 129/96 12/13/17 12:39 Pulse Ox 100 12/13/17 12:00 Intake & Output 12/12/17 12/13/17 12/13/17 18:59 06:59 18:59 Intake Total 560 300 812 Output Total 663 583 2823 Balance 200 35 -1083 Weight 101.6 kg 101.6 kg Intake: IV 360 300 518 FFP 298 Meropenem 1 gm In Sodium 100 100 100 Chloride 0.9% 100 ml @ 100 mls/hr IVPB Q8HR [facility] Rx#:[id number] Sodium Chloride 0.9% 1, 260 200 120 000 ml @ 20 mls/hr IV . Q24H [facility] Rx#:[id number] Intake, IV Titration 100 Amount Meropenem 1 gm In Sodium 100 Chloride 0.9% 100 ml @ 100 mls/hr IVPB Q8HR [facility] Rx#:[id number] Oral 100 Blood Product 294 Ffp 24 Cpd Unit 294 [id number] Output: Chest Tube Drainage 10 70 Pleural Catheter Left 10 70 Drainage 1500 Medial Chest Incision - 1500 Woundvac Urine 350 265 325 Other: Voiding Method Bedpan Bedpan # Voids 1 # Bowel Movements 1 ABP, PAP, CO, CI - Last Documented Arterial Blood Pressure 110/60 Pulmonary Artery Pressure 38/33 Cardiac Output 5.8 Cardiac Index 2.9 - Exam The patient is in mild degree of respiratory distress. She is tolerating a full face BiPAP mask without any major difficulties.Head exam was generally normal. There was no scleral icterus or corneal arcus. Mucous membranes were moist.Neck was supple and without jugular venous distension, thyromegaly, or carotid bruits. Carotids were easily palpable bilaterally. There was no adenopathy. The patient has crowding of posterior oropharynx. Mucosal resulted essentially dry. Lungs show diminished breath sounds bilaterally. The patient has a left-sided chest tube in place. The breast on the left lung base is diminished. The anterior sternal wound is debrided and it's open with a wound VAC applied and appropriate dressing applied. The patient has a left- sided chest tube total amount of output since inserted was 300 mL. Heart sounds are regular for now, positive S1-S2 and there is no significant murmurs appreciated. Abdomen is obese soft nontender. No direct tenderness or rebound tenderness or guarding. Extremities reveal trace edema and there is no cyanosis or clubbing at this point. Neurologically the patient is awake and alert 3 and there is no focal neurological deficit. Examination of the skin other than the sternum is dry clean and intact. - Labs CBC & Chem 7: 12/13/17 04:34 12/13/17 04:34 Labs: Abnormal Lab Results - Last 24 Hours (Table) 12/12/17 12/12/17 12/13/17 Range/Units 17:05 20:07 04:34 WBC 24.6 H (3.8-10.6) k/uL RBC 3.17 L (3.80-5.40) m/uL Hgb 8.6 L (11.4-16.0) gm/dL Hct 28.1 L (34.0-46.0) % MCHC 30.5 L (31.0-37.0) g/dL RDW 18.5 H (11.5-15.5) % Neutrophils # 22.9 H (1.3-7.7) k/uL Lymphocytes # 0.5 L (1.0-4.8) k/uL PT (9.0-12.0) sec INR (<1.2) Carbon Dioxide (22-30) mmol/L BUN (7-17) mg/dL POC Glucose (mg/dL) 134 H 191 H (75-99) mg/dL Calcium (8.4-10.2) mg/dL Phosphorus (2.5-4.5) mg/dL Magnesium (1.6-2.3) mg/dL AST (14-36) U/L Total Protein (6.3-8.2) g/dL Albumin (3.5-5.0) g/dL 12/13/17 12/13/17 12/13/17 Range/Units 04:34 05:27 07:45 WBC (3.8-10.6) k/uL RBC (3.80-5.40) m/uL Hgb (11.4-16.0) gm/dL Hct (34.0-46.0) % MCHC (31.0-37.0) g/dL RDW (11.5-15.5) % Neutrophils # (1.3-7.7) k/uL Lymphocytes # (1.0-4.8) k/uL PT 16.2 H (9.0-12.0) sec INR 1.8 H (<1.2) Carbon Dioxide 37 H (22-30) mmol/L BUN 43 H (7-17) mg/dL POC Glucose (mg/dL) 173 H (75-99) mg/dL Calcium 8.2 L (8.4-10.2) mg/dL Phosphorus 2.3 L (2.5-4.5) mg/dL Magnesium 2.5 H (1.6-2.3) mg/dL AST 53 H (14-36) U/L Total Protein 5.4 L (6.3-8.2) g/dL Albumin 2.4 L (3.5-5.0) g/dL Microbiology - Last 24 Hours (Table) 12/10/17 10:40 Gram Stain - Final Chest Wound Culture - Final Serratia marcescens 12/10/17 10:45 Gram Stain - Final Chest Tissue Culture - Final Serratia marcescens 12/10/17 10:50 Gram Stain - Final Chest Tissue Culture - Final Serratia marcescens 12/10/17 10:50 Anaerobic Culture - Preliminary Chest 12/10/17 10:40 Anaerobic Culture - Preliminary Chest 12/10/17 10:45 Anaerobic Culture - Preliminary Chest Assessment and Plan Assessment: 1. Severe mitral valve regurgitation, status post mitral valve replacement, with Maze procedure, left atrial appendage exclusion, and one-vessel bypass, postop day 17 2 sternal wound dehiscence/infection with gram-negative infection and the patient has Serratia currently on Merrem. The patient underwent debridement and the wound VAC is applied. She will ultimately need a flap and plastic surgery has been consulted. The patient remains on IV meropenem. Afebrile. White cell count is at 19. Wound VAC remains in place. 3 left basilar atelectasis/small pleural effusion post chest tube insertion, total amount of output was 300 mL and today to stop since. Using incentive spirometer. 4 acute respiratory failure, hypoxic and hypercapnic, tolerating BiPAP without any major difficulties at a pressure of 14/5 cm of water. 5. acute urinary tract infection, urine culture positive for E. coli and Serratia marcescens, was initially treated with Zosyn, now on meropenem 6. Anemia, multifactorial in the patient's hemoglobin is at 8.6 7 paroxysmal atrial flutter with rapid ventricular response currently on beta blockers and oral amiodarone, on no anticoagulation and INR is 1.8, however the patient requires a bronchoscopy or pericardial window, the patient would benefit from giving her a unit of fresh frozen plasma today. 8 left subclavian stenosis 9 leukocytosis 10 obesity 11 previous history of GI bleed 12 pressure ulceration in the back and buttocks, stage III Recommendation: Continue present supportive care measures, continue BiPAP, I have earlier reviewed the chest x-ray and discussed with the family setting the patient up for bronchoscopy and lavage of the left lung, however after reviewing the CT of the chest and the significant increase in the pericardial effusion, I believe at this point an echocardiogram should be done, will hold on plans for bronchoscopy at this point, continue antibiotics, continue bronchodilators, will cancel plans for bronchoscopy although the patient received 1 unit of fresh frozen plasma earlier, but she may still require a pericardial window if the echocardiogram shows worsening of the pericardial effusion compared to previous echocardiogram. Critical care time is 34 minutes. Time with Patient: Greater than 30
[2017-12-13] MEDS: VANCOMYCIN 1,750 MG in SODIUM CHLORIDE 0.9% 250 ML IVPB SCH (14:15)
--- NOTE | 2017-12-13 14:46 | ECHOF ---
Referral Reason:eval pericardial effusion MEASUREMENTS -------- HEIGHT: 162.6 cm WEIGHT: 101.2 kg BP: 129/96 FINDINGS -------- Limited Study for pericardial effusion. TDS due to CABG and Bandages. There is a trivial pericardial effusion present. CONCLUSIONS -------- 1. Limited Study for pericardial effusion. 2. TDS due to CABG and Bandages. 3. There is a trivial pericardial effusion present. HOME HEALTH CARE CASE MANAGER: Parris Hoskins RDCS
--- NOTE | 2017-12-13 15:00 | P.PN ---
Subjective Patient remains an atrial tachycardia with RVR up 130 beats a minute she short of breath she is on a BiPAP mask Respirations 28 blood pressure 130/60 mmHg afebrile 98.3F Breath sounds are reduced bilaterally heart sounds are distant Abdomen is soft Skin is warm Impression Status post coronary artery bypass grafting, mitral valve replacement, maze procedure and left atrial appendectomy Postoperative atrial fibrillation Patient had preoperative atrial fibrillation also Sternal wound dehiscence awaiting myocutaneous flap She had an elective cardioversion last week but she recurrence of atrial tachycardia/atrial fibrillation after redo sternal wound debridement Plan Continue current medications Objective - Vital Signs Vital signs: Vital Signs Temp 98.3 F 12/13/17 12:39 Pulse 105 H 12/13/17 14:00 Resp 28 H 12/13/17 14:00 BP 113/60 12/13/17 14:00 Pulse Ox 100 12/13/17 14:00 Intake & Output 12/12/17 12/13/17 12/13/17 18:59 06:59 18:59 Intake Total 560 300 852 Output Total 735 856 0173 Balance 200 35 -1138 Weight 101.6 kg 101.6 kg Intake: IV 360 300 558 FFP 298 Meropenem 1 gm In Sodium 100 100 100 Chloride 0.9% 100 ml @ 100 mls/hr IVPB Q8HR [facility] Rx#:[id number] Sodium Chloride 0.9% 1, 260 200 160 000 ml @ 20 mls/hr IV . Q24H [facility] Rx#:[id number] Intake, IV Titration 100 Amount Meropenem 1 gm In Sodium 100 Chloride 0.9% 100 ml @ 100 mls/hr IVPB Q8HR [facility] Rx#:[id number] Oral 100 Blood Product 294 Ffp 24 Cpd Unit 294 [id number] Output: Chest Tube Drainage 10 80 Pleural Catheter Left 10 80 Drainage 1525 Medial Chest Incision - 1525 Woundvac Urine 350 265 385 Other: Voiding Method Bedpan Bedpan Bedpan # Voids 1 # Bowel Movements 1 ABP, PAP, CO, CI - Last Documented Arterial Blood Pressure 110/60 Pulmonary Artery Pressure 38/33 Cardiac Output 5.8 Cardiac Index 2.9 - Labs CBC & Chem 7: 12/13/17 04:34 12/13/17 04:34 Labs: Abnormal Lab Results - Last 24 Hours (Table) 12/12/17 12/12/17 12/13/17 Range/Units 17:05 20:07 04:34 WBC 24.6 H (3.8-10.6) k/uL RBC 3.17 L (3.80-5.40) m/uL Hgb 8.6 L (11.4-16.0) gm/dL Hct 28.1 L (34.0-46.0) % MCHC 30.5 L (31.0-37.0) g/dL RDW 18.5 H (11.5-15.5) % Neutrophils # 22.9 H (1.3-7.7) k/uL Lymphocytes # 0.5 L (1.0-4.8) k/uL PT (9.0-12.0) sec INR (<1.2) Carbon Dioxide (22-30) mmol/L BUN (7-17) mg/dL POC Glucose (mg/dL) 134 H 191 H (75-99) mg/dL Calcium (8.4-10.2) mg/dL Phosphorus (2.5-4.5) mg/dL Magnesium (1.6-2.3) mg/dL AST (14-36) U/L Total Protein (6.3-8.2) g/dL Albumin (3.5-5.0) g/dL 12/13/17 12/13/17 12/13/17 Range/Units 04:34 05:27 07:45 WBC (3.8-10.6) k/uL RBC (3.80-5.40) m/uL Hgb (11.4-16.0) gm/dL Hct (34.0-46.0) % MCHC (31.0-37.0) g/dL RDW (11.5-15.5) % Neutrophils # (1.3-7.7) k/uL Lymphocytes # (1.0-4.8) k/uL PT 16.2 H (9.0-12.0) sec INR 1.8 H (<1.2) Carbon Dioxide 37 H (22-30) mmol/L BUN 43 H (7-17) mg/dL POC Glucose (mg/dL) 173 H (75-99) mg/dL Calcium 8.2 L (8.4-10.2) mg/dL Phosphorus 2.3 L (2.5-4.5) mg/dL Magnesium 2.5 H (1.6-2.3) mg/dL AST 53 H (14-36) U/L Total Protein 5.4 L (6.3-8.2) g/dL Albumin 2.4 L (3.5-5.0) g/dL Microbiology - Last 24 Hours (Table) 12/10/17 10:40 Gram Stain - Final Chest Wound Culture - Final Serratia marcescens 12/10/17 10:45 Gram Stain - Final Chest Tissue Culture - Final Serratia marcescens 12/10/17 10:50 Gram Stain - Final Chest Tissue Culture - Final Serratia marcescens 12/10/17 10:50 Anaerobic Culture - Preliminary Chest 12/10/17 10:40 Anaerobic Culture - Preliminary Chest 12/10/17 10:45 Anaerobic Culture - Preliminary Chest
--- NOTE | 2017-12-13 15:55 | CDI ---
Last Revision, September 2017 Documentation Clarification Form Date: 12/13/2017 Revised: 12/21/2017 From: Chuyita Navarrete Admit Date: 11/25/2017 5:36:00 AM Patient Name: Maritza Sadler Visit Number: [id number] Discharge Date: ATTENTION: The Clinical Documentation Specialists (CDI) and [facility] Coding Staff appreciate your assistance in clarifying documentation. Please respond to the clarification below the line at the bottom and electronically sign. The CDI & [facility] Coding staff will review the response and follow-up if needed. Please note: Queries are made part of the Legal Health Record. If you have any questions, please contact the author of this message via ITS. Dr. Dion Back: Per your progress notes/operative note, a debridement was performed on 12/10: Px Dx: Sternal wound dehiscence. Px: Sternal Wound Debridement Procedure Description: "The soft tissue had fibrinous exudate and was debrided using a knife. Upon visualizing the sternum itself, it appeared to have pulled apart. All of the wires had pulled through. 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 All 8 sternal wires were then removed. Using a rongeur and curette , the sternal edges were debrided back. The left side of sternum required more debridement than the right side." History/Risk Factors: Multiple co-morbidities: CAD, Severe mitral regurgitation , Paroxysmal Atrial fibrillation, Hypertension, Hyperlipidemia. Clinical Indicators: Status post MVR w/MAZE procedure. E coli UTI, wound cultures Serratia. Treatment: IV Kcl, IV fluid boluses, IV Lanoxin, IV Dextrose/Amiodarone, IV Vancomycin Five elements required for accurate and compliant documentation of a debridement : 1. Technique used (e.g., excisional, excised, cutting, etc.) 2. Instrument(s) used (e.g., scalpel, curette, etc.) 3. Nature of the tissue removed (e.g., necrotic, devitalized tissues, non- viable tissue, etc.) 4. Appearance and size of the wound (e.g., down to fresh bleeding tissue, 7cm x 10cm, etc.) 5. Depth of the debridement* (e.g., skin, subcutaneous tissue, fascia, muscle , bone, etc.) In order to capture the severity of condition and code the appropriate procedure ; could you please document the following: Excisional debridement (the removal of necrotic, devitalized tissue or slough by means of cutting away of tissue) Non-excisional debridement (the removal of necrotic, devitalized tissue or slough by means of flushing, brushing, or washing. (Irrigation) Other; please specify Unable to determine (no explanation for clinical findings) Please continue to document in your progress notes and discharge summary in order to capture severity of illness and risk of mortality. Include clinical findings that support your diagnosis. MTDD
--- NOTE | 2017-12-13 16:47 | P.PN ---
Subjective Progress Note Date: 12/13/17 Progress note being dictated for Dr. Lugo. Interval history: This is 67-year-old female status post CABG, mitral valve replacement, status post multiple blood products transfusions. Remains vent dependent on 40% FiO2/+5 of PEEP. Chest x-ray reporting fluid overload, improvement in volume status, aeration.Maintained on norepinephrine, Primacor, dopamine and insulin drip. Cardiac index 2.7. Telemetry atrial flutter/sinus tach. Tube feeding initiated via OG tube. Hemoglobin 7.3, Platelets decreased to 64 today, maintained on low-dose aspirin. Review systems unable to obtain as patient sedated and on mechanical ventilation. Active Medications Albuterol/Ipratropium (Duoneb 0.5 Mg-3 Mg/3 Ml Soln) 3 ml INHALATION RT-Q4H [facility] Last Admin: 11/29/17 15:17 Dose: 3 ml Albuterol/Ipratropium (Duoneb 0.5 Mg-3 Mg/3 Ml Soln) 3 ml INHALATION RT-Q2H PRN PRN Reason: Shortness Of Breath Or Wheezing Amiodarone HCl (Cordarone) 200 mg PO BID [facility] Aspirin (Aspirin) 81 mg PO DAILY [facility] Last Admin: 11/29/17 08:54 Dose: 81 mg Atorvastatin Calcium (Lipitor) 40 mg PO DAILY [facility] Last Admin: 11/29/17 08:54 Dose: 40 mg Benzocaine/Menthol (Cepacol Lozenge) 1 each MUCOUS MEM Q2H PRN PRN Reason: Sore Throat Bisacodyl (Dulcolax) 10 mg RECTAL DAILY PRN PRN Reason: Constipation Chlorhexidine Gluconate (Peridex) 15 ml MUCOUS MEM BID [facility] Last Admin: 11/29/17 08:48 Dose: 15 ml Furosemide (Lasix) 40 mg IV ONCE ONE Stop: 11/29/17 20:01 Propofol 1,000 mg/ IV Solution 100 mls @ 0 mls/hr IV .Q0M [facility]; Titrate PRN Reason: Protocol Last Admin: 11/29/17 17:54 Dose: 26.13 mcg/kg/min, 17.2 mls/hr Norepinephrine Bitartrate (Levophed-0.9% Nacl 16 Mg/250ml Pmx) 16 mg in 250 mls @ 0 mls/hr IV .Q0M [facility]; Titrate PRN Reason: Protocol Last Admin: 11/29/17 17:54 Dose: 2 mcg/min, 1.875 mls/hr Sodium Chloride (Saline 0.45%) 1,000 mls @ 30 mls/hr IV .Q24H [facility] Last Admin: 11/29/17 10:28 Dose: Not Given Milrinone Lactate/Dextrose 20 (mg/ IV Solution) 100 mls @ 6.58 mls/hr IV .[id number] [facility] PRN Reason: 0.2 MCG/KG/MIN Last Admin: 11/29/17 15:38 Dose: 0.2 mcg/kg/min, 6.58 mls/hr Insulin Aspart (Novolog) 0 unit SQ Q6HR [facility] PRN Reason: Protocol Last Admin: 11/29/17 12:36 Dose: Not Given Magnesium Hydroxide (Milk Of Magnesia) 2,400 mg PO BID PRN PRN Reason: Constipation Metoprolol Tartrate (Lopressor) 12.5 mg PO BID [facility] Last Admin: 11/29/17 08:55 Dose: 12.5 mg Miscellaneous Information (Magnesium Per Protocol) 1 each MISCELLANE DAILY PRN ; Protocol PRN Reason: Per Protocol Miscellaneous Information (Phosphorus Per Protocol) 1 each MISCELLANE DAILY PRN ; Protocol PRN Reason: Per Protocol Miscellaneous Information (Potassium Per Protocol) 1 each MISCELLANE DAILY PRN ; Protocol PRN Reason: Per Protocol Miscellaneous Information (Potassium Per Protocol) 1 each MISCELLANE DAILY PRN ; Protocol PRN Reason: Per Protocol Morphine Sulfate (Morphine Oral Dana 2mg/Ml) 6 mg PO Q2H PRN PRN Reason: Severe Pain Ondansetron HCl (Zofran) 4 mg IVP Q6HR PRN PRN Reason: Nausea And Vomiting Pantoprazole Sodium (Protonix) 40 mg IVP DAILY [facility] Last Admin: 11/29/17 08:55 Dose: 40 mg Senna/Docusate Sodium (Senokot-S) 2 each PO HS [facility] Last Admin: 11/28/17 20:41 Dose: 2 each Sodium Chloride (Saline Flush) 10 ml IV BID [facility] Last Admin: 11/29/17 08:56 Dose: 10 ml 11/30/2017 Chest x-ray reporting increased congestion, received additional Lasix. extubated this morning, currently maintained on BiPAP. Norepinephrine weaned off this morning. Maintained on Primacor, cardiac index 2.6. Received 1 dose of Lasix IV push. Renal function improving. Hemoglobin 7, platelets increased to 74. Atrial flutter per telemetry. Review systems unable to obtain as patient BiPAP dependent. Active Medications Generic Name Dose Route Start Last Admin Trade Name Freq PRN Reason Stop Dose Admin Albuterol/Ipratropium 3 ml 11/25/17 20:00 11/30/17 15:23 Duoneb 0.5 Mg-3 Mg/3 Ml Soln INHALATION 3 ml RT-Q4H [facility] Administration Albuterol/Ipratropium 3 ml 11/26/17 17:53 Duoneb 0.5 Mg-3 Mg/3 Ml Soln INHALATION RT-Q2H PRN Shortness Of Breath Or Wheezing Amiodarone HCl 200 mg 11/29/17 21:00 11/30/17 08:14 Cordarone PO 200 mg BID [facility] Administration Aspirin 81 mg 11/26/17 10:15 11/30/17 08:15 Aspirin PO 81 mg DAILY [facility] Administration Atorvastatin Calcium 40 mg 11/26/17 09:00 11/30/17 08:14 Lipitor PO 40 mg DAILY [facility] Administration Benzocaine/Menthol 1 each 11/25/17 19:03 Cepacol Lozenge MUCOUS MEM Q2H PRN Sore Throat Bisacodyl 10 mg 11/26/17 17:52 Dulcolax RECTAL DAILY PRN Constipation Fondaparinux 2.5 mg 11/30/17 11:30 11/30/17 13:23 Arixtra SQ 2.5 mg DAILY [facility] Administration Norepinephrine Bitartrate 16 mg in 250 mls @ 0 mls/hr 11/26/17 04:15 11:58 Levophed-0.9% Nacl 16 Mg/250ml Pmx IV 0 mcg/min .Q0M [facility] 0 mls/hr Protocol Titration Titrate Sodium Chloride 1,000 mls @ 10 mls/hr 11/26/17 10:15 11/30/17 12:51 Saline 0.45% IV Not Given .Q24H [facility] Milrinone Lactate/Dextrose 20 100 mls @ 6.58 mls/hr 11/29/17 15:00 11/30/17 08:16 mg/ IV Solution IV 0.2 mcg/kg/min .[id number] [facility] 6.58 mls/hr 0.2 MCG/KG/MIN Infusion Insulin Aspart 0 unit 11/29/17 12:00 11/30/17 12:50 Novolog SQ Not Given Q6HR [facility] Protocol Magnesium Hydroxide 2,400 mg 11/26/17 17:53 Milk Of Magnesia PO BID PRN Constipation Metoprolol Tartrate 12.5 mg 11/26/17 09:00 11/30/17 08:15 Lopressor PO 12.5 mg BID [facility] Administration Miscellaneous Information 1 each 11/25/17 19:03 Magnesium Per Protocol MISCELLANE DAILY PRN Per Protocol Protocol Miscellaneous Information 1 each 11/25/17 19:03 Phosphorus Per Protocol MISCELLANE DAILY PRN Per Protocol Protocol Miscellaneous Information 1 each 11/25/17 19:03 Potassium Per Protocol MISCELLANE DAILY PRN Per Protocol Protocol Miscellaneous Information 1 each 11/29/17 12:01 Potassium Per Protocol MISCELLANE DAILY PRN Per Protocol Protocol Morphine Sulfate 6 mg 11/29/17 13:31 Morphine Oral Dana 2mg/Ml PO Q2H PRN Severe Pain Ondansetron HCl 4 mg 11/25/17 19:03 Zofran IVP Q6HR PRN Nausea And Vomiting Pantoprazole Sodium 40 mg 11/26/17 09:00 11/30/17 08:15 Protonix IVP 40 mg DAILY [facility] Administration Senna/Docusate Sodium 2 each 11/26/17 21:00 11/29/17 20:40 Senokot-S PO 2 each HS [facility] Administration Sodium Chloride 10 ml 11/25/17 21:00 11/30/17 08:15 Saline Flush IV 10 ml BID [facility] Administration 12/01/2017 Breathing improving, weaned off of BiPAP and down to 6 L high flow. Wheezing resolved. Chest x-ray reports improvement. Staff reports patient appeared to be choking on pills last night, speech therapy consulted. Receiving one unit of packed RBCs for hemoglobin of 6.7. Mediastinal chest tubes discontinued, left pleural chest tube remains. Maintained on Primacor. Telemetry atrial flutter. Review of systems: CONSTITUTIONAL: No fever, no malaise HEENT: No recent visual problems or hearing problems. Denied any sore throat. CARDIOVASCULAR: No chest pain, no palpitations, no syncope. PULMONARY: Improving shortness of breath, no cough, no hemoptysis. GASTROINTESTINAL: No diarrhea, no nausea, no vomiting, no abdominal pain. Normoactive bowel sounds. NEUROLOGICAL: No headaches, diffuse weakness, no numbness. HEMATOLOGICAL: Denies any bleeding or petechiae. GENITOURINARY: Denies any burning micturition, frequency, or urgency. ENDOCRINE: Denies any polyuria or polydipsia. PSYCHIATRIC: No anxiety, no depression Active Medications Hydrocodone Bitart/Acetaminophen (Garland 5-325) 1 each PO Q4HR PRN PRN Reason: MILD TO MODERATE Pain Last Admin: 12/01/17 22:44 Dose: 1 each Hydrocodone Bitart/Acetaminophen (Garland 5-325) 2 each PO Q4HR PRN PRN Reason: MODERATE TO SEVERE Pain Albuterol/Ipratropium (Duoneb 0.5 Mg-3 Mg/3 Ml Soln) 3 ml INHALATION RT-Q4H [facility] Last Admin: 12/02/17 15:06 Dose: 3 ml Albuterol/Ipratropium (Duoneb 0.5 Mg-3 Mg/3 Ml Soln) 3 ml INHALATION RT-Q2H PRN PRN Reason: Shortness Of Breath Or Wheezing Last Admin: 12/01/17 18:09 Dose: 3 ml Amiodarone HCl (Cordarone) 200 mg PO BID [facility] Last Admin: 12/02/17 08:10 Dose: 200 mg Aspirin (Aspirin) 81 mg PO DAILY [facility] Last Admin: 12/02/17 08:10 Dose: 81 mg Atorvastatin Calcium (Lipitor) 40 mg PO DAILY [facility] Last Admin: 12/02/17 08:10 Dose: 40 mg Benzocaine/Menthol (Cepacol Lozenge) 1 each MUCOUS MEM Q2H PRN PRN Reason: Sore Throat Bisacodyl (Dulcolax) 10 mg RECTAL DAILY PRN PRN Reason: Constipation Budesonide (Pulmicort) 1 mg INHALATION RT-BID [facility] Last Admin: 12/02/17 07:19 Dose: 1 mg Fondaparinux (Arixtra) 2.5 mg SQ DAILY [facility] Last Admin: 12/02/17 08:10 Dose: 2.5 mg Formoterol Fumarate (Perforomist) 20 mcg INHALATION RT-BID [facility] Last Admin: 12/02/17 07:36 Dose: 20 mcg Norepinephrine Bitartrate (Levophed-0.9% Nacl 16 Mg/250ml Pmx) 16 mg in 250 mls @ 0 mls/hr IV .Q0M [facility]; Titrate PRN Reason: Protocol Last Titration: 11/30/17 11:58 Dose: 0 mcg/min, 0 mls/hr Sodium Chloride (Saline 0.45%) 1,000 mls @ 10 mls/hr IV .Q24H [facility] Last Admin: 12/01/17 14:04 Dose: 10 mls/hr Milrinone Lactate/Dextrose 20 (mg/ IV Solution) 100 mls @ 6.58 mls/hr IV .[id number] [facility] PRN Reason: 0.2 MCG/KG/MIN Last Admin: 12/02/17 08:57 Dose: 0.2 mcg/kg/min, 6.58 mls/hr Insulin Aspart (Novolog) 0 unit SQ Q6HR [facility] PRN Reason: Protocol Last Admin: 12/02/17 12:53 Dose: Not Given Magnesium Hydroxide (Milk Of Magnesia) 2,400 mg PO BID PRN PRN Reason: Constipation Methylprednisolone Sodium Succinate (Solu-Medrol) 30 mg IV Q8HR [facility] Last Admin: 12/02/17 08:10 Dose: 30 mg Metoprolol Tartrate (Lopressor) 25 mg PO BID [facility] Last Admin: 12/02/17 08:59 Dose: 25 mg Miscellaneous Information (Magnesium Per Protocol) 1 each MISCELLANE DAILY PRN ; Protocol PRN Reason: Per Protocol Miscellaneous Information (Phosphorus Per Protocol) 1 each MISCELLANE DAILY PRN ; Protocol PRN Reason: Per Protocol Miscellaneous Information (Potassium Per Protocol) 1 each MISCELLANE DAILY PRN ; Protocol PRN Reason: Per Protocol Miscellaneous Information (Potassium Per Protocol) 1 each MISCELLANE DAILY PRN ; Protocol PRN Reason: Per Protocol Ondansetron HCl (Zofran) 4 mg IVP Q6HR PRN PRN Reason: Nausea And Vomiting Pantoprazole Sodium (Protonix) 40 mg IVP DAILY [facility] Last Admin: 12/02/17 08:10 Dose: 40 mg Senna/Docusate Sodium (Senokot-S) 2 each PO HS [facility] Last Admin: 12/01/17 21:55 Dose: 2 each Sodium Chloride (Saline Flush) 10 ml IV BID [facility] Last Admin: 12/02/17 12:51 Dose: 10 ml 12/02/17 Much more alert today. Oxygen weaned further down to 5 L nasal cannula, maintaining O2 sats in the high 90s. Pleural chest tube discontinued. Chest x- ray reporting probable right lower lobe atelectasis/effusion. Underwent modified barium swallow, with recommendations of regular diet, thin liquids, chin tuck, no straw, small bites/sepsis/sips; no impairment with exception of mild transient penetration with thin liquids which patient independently cleared. Yesterday receive 1 unit of packed RBCs with current hemoglobin 8. Weaning of Primacor in progress. 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 Review of systems: CONSTITUTIONAL: No fever, no malaise, no fatigue. HEENT: No recent visual problems or hearing problems. Denied any sore throat. CARDIOVASCULAR: No chest pain, no palpitations, no syncope. PULMONARY: Minimal shortness of breath, no cough, no hemoptysis. GASTROINTESTINAL: No diarrhea, no nausea, no vomiting, no abdominal pain. Normoactive bowel sounds. NEUROLOGICAL: No headaches, no weakness, no numbness. HEMATOLOGICAL: Denies any bleeding or petechiae. GENITOURINARY: Denies any burning micturition, frequency, or urgency. MUSCULOSKELETAL/RHEUMATOLOGICAL: Denies any joint pain, swelling, or any muscle pain. ENDOCRINE: Denies any polyuria or polydipsia. PSYCHIATRIC: No anxiety, no depression The rest of the 14 point review of systems is negative Active Medications Generic Name Dose Route Start Last Admin Trade Name Freq PRN Reason Stop Dose Admin Hydrocodone Bitart/Acetaminophen 1 each 12/01/17 12:20 12/01/17 22:44 Garland 5-325 PO 1 each Q4HR PRN Administration MILD TO MODERATE Pain Hydrocodone Bitart/Acetaminophen 2 each 12/01/17 12:20 Garland 5-325 PO Q4HR PRN MODERATE TO SEVERE Pain Albuterol/Ipratropium 3 ml 11/25/17 20:00 12/02/17 15:06 Duoneb 0.5 Mg-3 Mg/3 Ml Soln INHALATION 3 ml RT-Q4H [facility] Administration Albuterol/Ipratropium 3 ml 11/26/17 17:53 12/01/17 18:09 Duoneb 0.5 Mg-3 Mg/3 Ml Soln INHALATION 3 ml RT-Q2H PRN Administration Shortness Of Breath Or Wheezing Amiodarone HCl 200 mg 11/29/17 21:00 12/02/17 08:10 Cordarone PO 200 mg BID [facility] Administration Aspirin 81 mg 11/26/17 10:15 12/02/17 08:10 Aspirin PO 81 mg DAILY [facility] Administration Atorvastatin Calcium 40 mg 11/26/17 09:00 12/02/17 08:10 Lipitor PO 40 mg DAILY [facility] Administration Benzocaine/Menthol 1 each 11/25/17 19:03 Cepacol Lozenge MUCOUS MEM Q2H PRN Sore Throat Bisacodyl 10 mg 11/26/17 17:52 Dulcolax RECTAL DAILY PRN Constipation Budesonide 1 mg 12/01/17 20:00 12/02/17 07:19 Pulmicort INHALATION 1 mg RT-BID [facility] Administration Fondaparinux 2.5 mg 11/30/17 11:30 12/02/17 08:10 Arixtra SQ 2.5 mg DAILY [facility] Administration Formoterol Fumarate 20 mcg 12/01/17 20:00 12/02/17 07:36 Perforomist INHALATION 20 mcg RT-BID [facility] Administration Norepinephrine Bitartrate 16 mg in 250 mls @ 0 mls/hr 11/26/17 04:15 11:58 Levophed-0.9% Nacl 16 Mg/250ml Pmx IV 0 mcg/min .Q0M [facility] 0 mls/hr Protocol Titration Titrate Sodium Chloride 1,000 mls @ 10 mls/hr 11/26/17 10:15 12/02/17 15:41 Saline 0.45% IV Not Given .Q24H [facility] Milrinone Lactate/Dextrose 20 100 mls @ 6.58 mls/hr 11/29/17 15:00 12/02/17 08:57 mg/ IV Solution IV 0.2 mcg/kg/min .[id number] [facility] 6.58 mls/hr 0.2 MCG/KG/MIN Administration Insulin Aspart 0 unit 11/29/17 12:00 12/02/17 12:53 Novolog SQ Not Given Q6HR [facility] Protocol Magnesium Hydroxide 2,400 mg 11/26/17 17:53 Milk Of Magnesia PO BID PRN Constipation Methylprednisolone Sodium Succinate 30 mg 12/01/17 16:00 12/02/17 08:10 Solu-Medrol IV 30 mg Q8HR [facility] Administration Metoprolol Tartrate 25 mg 12/02/17 09:00 12/02/17 08:59 Lopressor PO 25 mg BID [facility] Administration Miscellaneous Information 1 each 11/25/17 19:03 Magnesium Per Protocol MISCELLANE DAILY PRN Per Protocol Protocol Miscellaneous Information 1 each 11/25/17 19:03 Phosphorus Per Protocol MISCELLANE DAILY PRN Per Protocol Protocol Miscellaneous Information 1 each 11/25/17 19:03 Potassium Per Protocol MISCELLANE DAILY PRN Per Protocol Protocol Miscellaneous Information 1 each 11/29/17 12:01 Potassium Per Protocol MISCELLANE DAILY PRN Per Protocol Protocol Ondansetron HCl 4 mg 11/25/17 19:03 Zofran IVP Q6HR PRN Nausea And Vomiting Pantoprazole Sodium 40 mg 11/26/17 09:00 12/02/17 08:10 Protonix IVP 40 mg DAILY [facility] Administration Senna/Docusate Sodium 2 each 11/26/17 21:00 12/01/17 21:55 Senokot-S PO 2 each HS [facility] Administration Sodium Chloride 10 ml 11/25/17 21:00 12/02/17 12:51 Saline Flush IV 10 ml BID [facility] Administration 12/03/17 maintained on nebulized bronchodilators, steroids,patient tachypneic, requiring BiPap throughout today off and on. Chest x-ray suggestive of fluid overload. Received additional Lasix. Maintained on oral amiodarone, remains in a-flutter. Overdrive atrial pacing attempted unsuccessfully. Digoxin 2 ordered. Pacer wires discontinued today. Stool at bedside with PT OT, remains extremely weak. Primacor weaned off yesterday. 2017 currently in atrial fibrillation with heart rates up into the 150s, scheduled for cardioversion tomorrow. INR 2.2. Patient currently wearing BiPAP ,has required on and off all day. Chest ultrasound reporting bilateral pleural effusions, larger on the right. Thoracentesis on hold, awaiting cardioversion.Chest x-ray reporting prominent interstitium and central vascularity, increased bibasilar density. Attempting diuresing with Lasix and Zaroxolyn. Review systems unable to obtain as patient currently on BiPAP. Active Medications Hydrocodone Bitart/Acetaminophen (Gar[place] 5-325) 1 each PO Q4HR PRN PRN Reason: MILD TO MODERATE Pain Last Admin: 12/07/17 10:48 Dose: 1 each Hydrocodone Bitart/Acetaminophen (Gar[place] 5-325) 2 each PO Q4HR PRN PRN Reason: MODERATE TO SEVERE Pain Last Admin: 12/07/17 16:39 Dose: 2 each Albuterol/Ipratropium (Duoneb 0.5 Mg-3 Mg/3 Ml Soln) 3 ml INHALATION RT-Q2H PRN PRN Reason: Shortness Of Breath Or Wheezing Last Admin: 12/01/17 18:09 Dose: 3 ml Albuterol/Ipratropium (Duoneb 0.5 Mg-3 Mg/3 Ml Soln) 3 ml INHALATION RT-QID [facility] Last Admin: 12/07/17 16:43 Dose: 3 ml Amiodarone HCl (Cordarone) 200 mg PO BID [facility] Aspirin (Aspirin) 81 mg PO DAILY [facility] Last Admin: 12/07/17 08:53 Dose: 81 mg Atorvastatin Calcium (Lipitor) 40 mg PO DAILY [facility] Last Admin: 12/07/17 08:53 Dose: 40 mg Benzocaine/Menthol (Cepacol Lozenge) 1 each MUCOUS MEM Q2H PRN PRN Reason: Sore Throat Bisacodyl (Dulcolax) 10 mg RECTAL DAILY PRN PRN Reason: Constipation Budesonide (Pulmicort) 1 mg INHALATION RT-BID [facility] Last Admin: 12/07/17 08:36 Dose: 1 mg Escitalopram Oxalate (Lexapro) 10 mg PO HS [facility] Furosemide (Lasix) 40 mg IV Q12HR [facility] Last Admin: 12/07/17 08:33 Dose: 40 mg Piperacillin/Tazobactam/ (Dextrose 3.375 gm/ IV Solution) 50 mls @ 12.5 mls/hr IVPB Q8HR [facility] Last Admin: 12/07/17 16:39 Dose: 12.5 mls/hr Sodium Chloride (Saline 0.9%) 1,000 mls @ 20 mls/hr IV .Q24H [facility] Last Admin: 12/07/17 13:00 Dose: 20 mls/hr Lactated Ringer's (Lactated Ringers) 1,000 mls @ 20 mls/hr IV .Q24H [facility] Last Admin: 12/06/17 20:45 Dose: 20 mls/hr Insulin Aspart (Novolog) 0 unit SQ ACHS [facility] PRN Reason: Protocol Last Admin: 12/07/17 13:01 Dose: 2 unit Magnesium Hydroxide (Milk Of Magnesia) 2,400 mg PO BID PRN PRN Reason: Constipation Methylprednisolone Sodium Succinate (Solu-Medrol) 30 mg IV Q8HR [facility] Last Admin: 12/07/17 16:39 Dose: 30 mg Metolazone (Zaroxolyn) 5 mg PO DAILY [facility] Last Admin: 12/07/17 08:53 Dose: 5 mg Metoprolol Tartrate (Lopressor) 50 mg PO BID [facility] Last Admin: 12/07/17 08:53 Dose: 50 mg Miscellaneous Information (Magnesium Per Protocol) 1 each MISCELLANE DAILY PRN ; Protocol PRN Reason: Per Protocol Miscellaneous Information (Phosphorus Per Protocol) 1 each MISCELLANE DAILY PRN ; Protocol PRN Reason: Per Protocol Miscellaneous Information (Potassium Per Protocol) 1 each MISCELLANE DAILY PRN ; Protocol PRN Reason: Per Protocol Ondansetron HCl (Zofran) 4 mg IVP Q6HR PRN PRN Reason: Nausea And Vomiting Pantoprazole Sodium (Protonix) 40 mg PO AC-BRKFST [facility] Last Admin: 12/07/17 08:53 Dose: 40 mg Senna/Docusate Sodium (Senokot-S) 2 each PO HS [facility] Last Admin: 12/06/17 20:29 Dose: 2 each Sodium Chloride (Saline Flush) 10 ml IV BID [facility] Last Admin: 12/07/17 10:48 Dose: 10 ml 12/07/2017 Underwent successful cardioversion this morning,360J X1, remains in sinus rhythm. Currently wearing BiPAP. Nonproductive cough. Diuresing well on Lasix and Zaroxolyn with 24-hour I&O reflecting a negative fluid balance. Chest x-ray reporting stable bilateral areas of infiltrate and pleural effusions , possible CHF, possible pneumonia. INR 3.8, afebrile, WBC 17. Maintained on Zosyn. Sternal wound drainage, cultures sent. 12/08/2017 Cardioverted yesterday, remains in sinus rhythm .continues requiring BiPAP for majority of morning. Echo reporting-limited study for assessment of pericardial effusion, small generalized pericardial effusion, low normal LV function, EF 50-55%. Chest CT reporting sternal dehiscence, moderate to large pericardial effusion, possible mass effect onto the left ventricle, no significant right atrial dilatation to clearly indicate tamponade, moderate left pleural effusion with adjacent complete left lower lobar and inferior lingular collapse, small right pleural effusion, right basilar subsegmental atelectasis. Chest x-ray noted. Blood sugars controlled. INR 4.8, received vitamin K this morning. Diuresing well on Lasix IV push, Zaroxolyn. 24-hour I& O reflecting a negative fluid balance, decreased weight. Midsternal incision open, draining large amount of serosanguineous drainage. Currently maintained on Zosyn. Wound cultures pending. Afebrile. Review systems unable to obtain as patient currently on BiPAP. Active Medications Generic Name Dose Route Start Last Admin Trade Name Freq PRN Reason Stop Dose Admin Hydrocodone Bitart/Acetaminophen 1 each 12/01/17 12:20 12/08/17 06:26 Garland 5-325 PO 1 each Q4HR PRN Administration MILD TO MODERATE Pain Hydrocodone Bitart/Acetaminophen 2 each 12/01/17 12:20 12/08/17 18:41 Garland 5-325 PO 2 each Q4HR PRN Administration MODERATE TO SEVERE Pain Acetazolamide Sodium 250 mg 12/08/17 09:15 12/08/17 11:16 Diamox IV 12/08/17 21:01 250 mg Q12HR [facility] Administration Albuterol/Ipratropium 3 ml 11/26/17 17:53 12/08/17 05:16 Duoneb 0.5 Mg-3 Mg/3 Ml Soln INHALATION 3 ml RT-Q2H PRN Administration Shortness Of Breath Or Wheezing Albuterol/Ipratropium 3 ml 12/03/17 08:00 12/08/17 15:38 Duoneb 0.5 Mg-3 Mg/3 Ml Soln INHALATION 3 ml RT-QID [facility] Administration Amiodarone HCl 200 mg 12/08/17 09:00 12/08/17 08:24 Cordarone PO 200 mg BID [facility] Administration Aspirin 81 mg 11/26/17 10:15 12/08/17 08:24 Aspirin PO 81 mg DAILY [facility] Administration Atorvastatin Calcium 40 mg 11/26/17 09:00 12/08/17 08:25 Lipitor PO 40 mg DAILY [facility] Administration Benzocaine/Menthol 1 each 11/25/17 19:03 Cepacol Lozenge MUCOUS MEM Q2H PRN Sore Throat Bisacodyl 10 mg 11/26/17 17:52 Dulcolax RECTAL DAILY PRN Constipation Budesonide 1 mg 12/01/17 20:00 12/08/17 09:26 Pulmicort INHALATION 1 mg RT-BID [facility] Administration Escitalopram Oxalate 10 mg 12/07/17 21:00 12/07/17 20:10 Lexapro PO 10 mg HS [facility] Administration Piperacillin/Tazobactam/ 50 mls @ 12.5 mls/hr 12/04/17 16:00 12/08/17 16:11 Dextrose 3.375 gm/ IV Solution IVPB 12.5 mls/hr Q8HR [facility] Administration Sodium Chloride 1,000 mls @ 20 mls/hr 12/06/17 10:45 12/08/17 13:47 Saline 0.9% IV Not Given .Q24H [facility] Insulin Aspart 0 unit 12/02/17 21:00 12/08/17 17:46 Novolog SQ 1 unit ACHS [facility] Administration Protocol Magnesium Hydroxide 2,400 mg 11/26/17 17:53 Milk Of Magnesia PO BID PRN Constipation Metoprolol Tartrate 50 mg 12/06/17 21:00 12/08/17 08:24 Lopressor PO 50 mg BID [facility] Administration Miscellaneous Information 1 each 11/25/17 19:03 Magnesium Per Protocol MISCELLANE DAILY PRN Per Protocol Protocol Miscellaneous Information 1 each 11/25/17 19:03 Phosphorus Per Protocol MISCELLANE DAILY PRN Per Protocol Protocol Miscellaneous Information 1 each 11/25/17 19:03 Potassium Per Protocol MISCELLANE DAILY PRN Per Protocol Protocol Ondansetron HCl 4 mg 11/25/17 19:03 Zofran IVP Q6HR PRN Nausea And Vomiting Pantoprazole Sodium 40 mg 12/05/17 07:30 12/08/17 08:25 Protonix PO 40 mg AC-BRKFST [facility] Administration Senna/Docusate Sodium 2 each 11/26/17 21:00 12/07/17 20:16 Senokot-S PO 2 each HS [facility] Administration Sodium Chloride 10 ml 11/25/17 21:00 12/08/17 11:16 Saline Flush IV 10 ml BID CARLEE Administration 12/09/17 Remains in sinus rhythm. mostly BiPAP dependent. Incentive spirometer up to 700 -750. Chest x-ray reporting improving moderate pleural effusion, cardiomegaly. Sternal wound culture positive for gram-negative bacilli. Maintained on Zosyn. Diet intake fair. Blood sugars controlled. Review systems unable to be performed as patient on BiPAP Active Medications Hydrocodone Bitart/Acetaminophen ([place] 5-325) 1 each PO Q4HR PRN PRN Reason: MILD TO MODERATE Pain Last Admin: 12/09/17 10:03 Dose: 1 each Hydrocodone Bitart/Acetaminophen ([place] 5-325) 2 each PO Q4HR PRN PRN Reason: MODERATE TO SEVERE Pain Last Admin: 12/09/17 14:51 Dose: 2 each Albuterol/Ipratropium (Duoneb 0.5 Mg-3 Mg/3 Ml Soln) 3 ml INHALATION RT-Q2H PRN PRN Reason: Shortness Of Breath Or Wheezing Last Admin: 12/08/17 05:16 Dose: 3 ml Albuterol/Ipratropium (Duoneb 0.5 Mg-3 Mg/3 Ml Soln) 3 ml INHALATION RT-QID [facility] Last Admin: 12/09/17 15:42 Dose: 3 ml Amiodarone HCl (Cordarone) 200 mg PO BID [facility] Last Admin: 12/09/17 08:12 Dose: 200 mg Aspirin (Aspirin) 81 mg PO DAILY [facility] Last Admin: 12/09/17 08:13 Dose: 81 mg Atorvastatin Calcium (Lipitor) 40 mg PO DAILY [facility] Last Admin: 12/09/17 08:13 Dose: 40 mg Benzocaine/Menthol (Cepacol Lozenge) 1 each MUCOUS MEM Q2H PRN PRN Reason: Sore Throat Bisacodyl (Dulcolax) 10 mg RECTAL DAILY PRN PRN Reason: Constipation Budesonide (Pulmicort) 1 mg INHALATION RT-BID [facility] Last Admin: 12/09/17 07:45 Dose: 1 mg Escitalopram Oxalate (Lexapro) 10 mg PO HS [facility] Last Admin: 12/08/17 20:33 Dose: 10 mg Piperacillin/Tazobactam/ (Dextrose 3.375 gm/ IV Solution) 50 mls @ 12.5 mls/hr IVPB Q8HR [facility] Last Admin: 12/09/17 08:16 Dose: 12.5 mls/hr Sodium Chloride (Saline 0.9%) 1,000 mls @ 20 mls/hr IV .Q24H [facility] Last Admin: 12/09/17 08:17 Dose: 20 mls/hr Insulin Aspart (Novolog) 0 unit SQ ACHS [facility] PRN Reason: Protocol Last Admin: 12/09/17 12:23 Dose: Not Given Magnesium Hydroxide (Milk Of Magnesia) 2,400 mg PO BID PRN PRN Reason: Constipation Metoprolol Tartrate (Lopressor) 50 mg PO BID [facility] Last Admin: 12/09/17 08:13 Dose: 50 mg Miscellaneous Information (Magnesium Per Protocol) 1 each MISCELLANE DAILY PRN ; Protocol PRN Reason: Per Protocol Miscellaneous Information (Phosphorus Per Protocol) 1 each MISCELLANE DAILY PRN ; Protocol PRN Reason: Per Protocol Miscellaneous Information (Potassium Per Protocol) 1 each MISCELLANE DAILY PRN ; Protocol PRN Reason: Per Protocol Ondansetron HCl (Zofran) 4 mg IVP Q6HR PRN PRN Reason: Nausea And Vomiting Pantoprazole Sodium (Protonix) 40 mg PO AC-BRKFST [facility] Last Admin: 12/09/17 08:11 Dose: 40 mg Senna/Docusate Sodium (Senokot-S) 2 each PO HS [facility] Last Admin: 12/08/17 20:37 Dose: 2 each Sodium Chloride (Saline Flush) 10 ml IV BID [facility] Last Admin: 12/09/17 08:13 Dose: 10 ml 12/13/17 maintained on Merrem and vancomycin. BiPAP dependent. Worsening chest x-ray, chest CT reporting near complete collapse of left lung, enlarging moderate to large pericardial effusion. Echo pending. Multiple episodes of diarrhea. Atrial flutter with RVR, Review systems unable to be performed as patient on BiPAP Active Medications Generic Name Dose Route Start Last Admin Trade Name Freq PRN Reason Stop Dose Admin Hydrocodone Bitart/Acetaminophen 1 each 12/01/17 12:20 12/13/17 08:08 Gar[place] 5-325 PO 1 each Q4HR PRN Administration MILD TO MODERATE Pain Hydrocodone Bitart/Acetaminophen 2 each 12/01/17 12:20 12/13/17 15:08 [place] 5-325 PO 2 each Q4HR PRN Administration MODERATE TO SEVERE Pain Albuterol/Ipratropium 3 ml 11/26/17 17:53 12/08/17 05:16 Duoneb 0.5 Mg-3 Mg/3 Ml Soln INHALATION 3 ml RT-Q2H PRN Administration Shortness Of Breath Or Wheezing Albuterol/Ipratropium 3 ml 12/03/17 08:00 12/13/17 16:02 Duoneb 0.5 Mg-3 Mg/3 Ml Soln INHALATION Not Given RT-QID [facility] Amiodarone HCl 200 mg 12/11/17 20:00 12/13/17 09:12 Cordarone PO 200 mg BID@0800,2000 [facility] Administration Aspirin 81 mg 11/26/17 10:15 12/13/17 09:13 Aspirin PO 81 mg DAILY [facility] Administration Atorvastatin Calcium 40 mg 11/26/17 09:00 12/13/17 09:13 Lipitor PO 40 mg DAILY [facility] Administration Benzocaine/Menthol 1 each 11/25/17 19:03 Cepacol Lozenge MUCOUS MEM Q2H PRN Sore Throat Bisacodyl 10 mg 11/26/17 17:52 12/12/17 17:45 Dulcolax RECTAL 10 mg DAILY PRN Administration Constipation Budesonide 1 mg 12/01/17 20:00 12/13/17 07:46 Pulmicort INHALATION 1 mg RT-BID [facility] Administration Escitalopram Oxalate 10 mg 12/07/17 21:00 12/12/17 20:16 Lexapro PO 10 mg HS [facility] Administration Heparin Sodium (Porcine) 5,000 unit 12/10/17 16:00 12/13/17 09:14 Heparin SQ 5,000 unit Q8HR [facility] Administration Sodium Chloride 1,000 mls @ 20 mls/hr 12/06/17 10:45 12/13/17 09:49 Saline 0.9% IV 20 mls/hr .Q24H [facility] Administration Meropenem 1 gm/ Sodium 100 mls @ 100 mls/hr 12/09/17 22:00 12/13/17 09:46 Chloride IVPB 100 mls/hr Q8HR [facility] Administration Vancomycin HCl 1,750 mg/ 250 mls @ 125 mls/hr 12/13/17 14:00 12/13/17 14:15 Sodium Chloride IVPB 125 mls/hr Q12HR@0000,1200 [facility] Administration Insulin Aspart 0 unit 12/02/17 21:00 12/13/17 12:34 Novolog SQ Not Given ACHS [facility] Protocol Lactobacillus Acidoph/Bulgaricus 1 each 12/13/17 16:00 Lactinex PO TID [facility] Magnesium Hydroxide 2,400 mg 11/26/17 17:53 Milk Of Magnesia PO BID PRN Constipation Metoprolol Tartrate 50 mg 12/11/17 22:00 12/13/17 09:13 Lopressor PO 50 mg BID@1000,2200 [facility] Administration Miscellaneous Information 1 each 11/25/17 19:03 Magnesium Per Protocol MISCELLANE DAILY PRN Per Protocol Protocol Miscellaneous Information 1 each 11/25/17 19:03 Phosphorus Per Protocol MISCELLANE DAILY PRN Per Protocol Protocol Miscellaneous Information 1 each 11/25/17 19:03 Potassium Per Protocol MISCELLANE DAILY PRN Per Protocol Protocol Ondansetron HCl 4 mg 11/25/17 19:03 Zofran IVP Q6HR PRN Nausea And Vomiting Pantoprazole Sodium 40 mg 12/05/17 07:30 12/13/17 09:13 Protonix PO 40 mg AC-BRKFST [facility] Administration Senna/Docusate Sodium 2 each 11/26/17 21:00 12/12/17 20:16 Senokot-S PO 2 each HS [facility] Administration Sodium Chloride 10 ml 11/25/17 21:00 12/13/17 09:49 Saline Flush IV 10 ml BID [facility] Administration Objective - Vital Signs Vital signs: Vital Signs Temp 98.3 F 12/13/17 12:39 Pulse 105 H 12/13/17 14:00 Resp 28 H 12/13/17 14:00 BP 113/60 12/13/17 14:00 Pulse Ox 100 12/13/17 14:00 Intake & Output 12/12/17 12/13/17 12/13/17 18:59 06:59 18:59 Intake Total 560 300 852 Output Total 262 128 0762 Balance 200 35 -1138 Weight 101.6 kg 101.6 kg Intake: IV 360 300 558 FFP 298 Meropenem 1 gm In Sodium 100 100 100 Chloride 0.9% 100 ml @ 100 mls/hr IVPB Q8HR [facility] Rx#:[id number] Sodium Chloride 0.9% 1, 260 200 160 000 ml @ 20 mls/hr IV . Q24H [facility] Rx#:[id number] Intake, IV Titration 100 Amount Meropenem 1 gm In Sodium 100 Chloride 0.9% 100 ml @ 100 mls/hr IVPB Q8HR [facility] Rx#:[id number] Oral 100 Blood Product 294 Ffp 24 Cpd Unit 294 [id number] Output: Chest Tube Drainage 10 80 Pleural Catheter Left 10 80 Drainage 1525 Medial Chest Incision - 1525 Woundvac Urine 350 265 385 Other: Voiding Method Bedpan Bedpan Bedpan # Voids 1 # Bowel Movements 1 ABP, PAP, CO, CI - Last Documented Arterial Blood Pressure 110/60 Pulmonary Artery Pressure 38/33 Cardiac Output 5.8 Cardiac Index 2.9 - Exam PHYSICAL EXAM: VITAL SIGNS: As above GENERAL: Sitting up in bed, respiratory effort increased, wearing BiPAP HEENT: Conjunctivae normal. eyes normal. NECK: No JVD. No thyroid enlargement. No LNs CARDIOVASCULAR: S1, S2 muffled. No murmur RESPIRATION: Breath sounds diminished in the bases. Scattered rhonchi. Sternal wound with wound vac present ABDOMEN: Soft . No guarding. no masses palpable.Bowel sounds heard. Extremities: Minimal edema PSYCHIATRY:/NERVOUS SYSTEM: Alert and oriented 3, moves all 4 extremities no focal deficits, Skin: Midsternal incision open,large amount of serosanguineous drainage,with packing, right medial buttock & right buttock skin tears, type II - III, Right lower arm Skin tear,type II, Lower back shearing injury with sloughing, excoriation, erythema. Microbiology 12/10/17 10:40 Chest Gram Stain - Final 12/10/17 10:40 Chest Wound Culture - Final Serratia marcescens 12/10/17 10:45 Chest Gram Stain - Final 12/10/17 10:45 Chest Tissue Culture - Final Serratia marcescens 12/10/17 10:50 Chest Gram Stain - Final 12/10/17 10:50 Chest Tissue Culture - Final Serratia marcescens 12/10/17 10:50 Chest Anaerobic Culture - Preliminary 12/10/17 10:40 Chest Anaerobic Culture - Preliminary 12/10/17 10:45 Chest Anaerobic Culture - Preliminary 12/10/17 10:50 Chest Acid Fast Bacilli Smear - Final 12/10/17 10:50 Chest Acid Fast Bacilli Culture - Preliminary 12/10/17 10:45 Chest Acid Fast Bacilli Smear - Final 12/10/17 10:45 Chest Acid Fast Bacilli Culture - Preliminary 12/10/17 10:50 Chest Fungal Culture - Preliminary 12/10/17 10:40 Chest Fungal Culture - Preliminary 12/10/17 10:45 Chest Fungal Culture - Preliminary 12/07/17 15:40 Chest Gram Stain - Final 12/07/17 15:40 Chest Wound Culture - Final Serratia marcescens 12/04/17 10:00 Urine,Voided Urine Culture - Final Escherichia coli Serratia marcescens 11/26/17 04:00 Sputum Gram Stain - Final 11/26/17 04:00 Sputum Sputum Culture - Final - Labs CBC & Chem 7: 12/13/17 04:34 12/13/17 04:34 Labs: Abnormal Lab Results - Last 24 Hours (Table) 12/12/17 12/12/17 12/13/17 Range/Units 17:05 20:07 04:34 WBC 24.6 H (3.8-10.6) k/uL RBC 3.17 L (3.80-5.40) m/uL Hgb 8.6 L (11.4-16.0) gm/dL Hct 28.1 L (34.0-46.0) % MCHC 30.5 L (31.0-37.0) g/dL RDW 18.5 H (11.5-15.5) % Neutrophils # 22.9 H (1.3-7.7) k/uL Lymphocytes # 0.5 L (1.0-4.8) k/uL PT (9.0-12.0) sec INR (<1.2) Carbon Dioxide (22-30) mmol/L BUN (7-17) mg/dL POC Glucose (mg/dL) 134 H 191 H (75-99) mg/dL Calcium (8.4-10.2) mg/dL Phosphorus (2.5-4.5) mg/dL Magnesium (1.6-2.3) mg/dL AST (14-36) U/L Total Protein (6.3-8.2) g/dL Albumin (3.5-5.0) g/dL 12/13/17 12/13/17 12/13/17 Range/Units 04:34 05:27 07:45 WBC (3.8-10.6) k/uL RBC (3.80-5.40) m/uL Hgb (11.4-16.0) gm/dL Hct (34.0-46.0) % MCHC (31.0-37.0) g/dL RDW (11.5-15.5) % Neutrophils # (1.3-7.7) k/uL Lymphocytes # (1.0-4.8) k/uL PT 16.2 H (9.0-12.0) sec INR 1.8 H (<1.2) Carbon Dioxide 37 H (22-30) mmol/L BUN 43 H (7-17) mg/dL POC Glucose (mg/dL) 173 H (75-99) mg/dL Calcium 8.2 L (8.4-10.2) mg/dL Phosphorus 2.3 L (2.5-4.5) mg/dL Magnesium 2.5 H (1.6-2.3) mg/dL AST 53 H (14-36) U/L Total Protein 5.4 L (6.3-8.2) g/dL Albumin 2.4 L (3.5-5.0) g/dL Microbiology - Last 24 Hours (Table) 12/10/17 10:40 Gram Stain - Final Chest Wound Culture - Final Serratia marcescens 12/10/17 10:45 Gram Stain - Final Chest Tissue Culture - Final Serratia marcescens 12/10/17 10:50 Gram Stain - Final Chest Tissue Culture - Final Serratia marcescens 12/10/17 10:50 Anaerobic Culture - Preliminary Chest 12/10/17 10:40 Anaerobic Culture - Preliminary Chest 12/10/17 10:45 Anaerobic Culture - Preliminary Chest Assessment and Plan Assessment: 1. Status post CABG with mitral valve replacement 2. Acute blood loss anemia with massive blood transfusions postoperatively, in a patient with history of GI bleed 3. Hypertension 4. Left subclavian stenosis 5. Proximal atrial fibrillation/flutter status post cardioversion with recurrence of atrial fibrillation 6. Postoperative Hypoxic respiratory failure, status post vent dependent, currently requiring intermittent use of BiPAP 7. Obesity, BMI 41.6 8. S/P PICC line placement 9. 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 Acute UTI Serratia marcescens, E. coli 11. Bilateral pleural effusions, improved with diuretics. Possible aspiration pneumonia, possible fluid overload. 12. Sternal wound dehiscence, culture growing Serratia marcescens, status post debridement, wound VAC present. 13. Pressure ulceration of back and buttocks, stage III 14. Diarrhea, ruling out C. difficile colitis. Plan: Continue on current medication regime , amiodarone, metoprolol , monitoring and symptomatic treatment. Potential bronchoscopy initially being considered but placed on hold, as chest CT reporting increasing pericardial effusion, echo pending .Maintain IV antibiotics, wound care as per infectious disease. Wound VAC as per cardiothoracic surgery .plastic surgeon consult in place .C. difficile testing ordered .Continue nebulized bronchodilators, IV steroids. Follow Sternal wound cultures closely. Aggressive pulmonary toileting.GI and DVT prophylaxis in place. The impression and plan of care has been dictated as directed. : I performed a history and examination of this patient, discussed the same with the dictator. I agree with the dictator's note ,documented as a scribe. Any additional findings or plans will be noted.
[2017-12-13 16:59] LABS: Glucose,Whole Blood 94 mg/dL (75-99)
[2017-12-13] MEDS: LACTOBACILLUS ACIDOPH & BULGAR 1 EACH PACKET PO SCH ×2 (17:22→22:31)
[2017-12-13 20:27] LABS: Glucose,Whole Blood 134 mg/dL (75-99)
[2017-12-13] MEDS: ESCITALOPRAM 10 MG TAB PO SCH (20:29)
[2017-12-13] MEDS: SENNOSIDES-DOCUSATE SODIUM 1 EACH TAB PO SCH (20:29)
--- NOTE | 2017-12-13 23:31 | P.PN ---
Subjective Progress Note Date: 12/13/17 Principal diagnosis: Sternal wound dehiscence Pleasant 67-year-old female who has an extensive past medical history who is now 14 days postoperative from her open heart procedure it which point in time a mitral valve placement occurred, reverse saphenous vein coronary artery bypass grafting 1 to obtuse marginal, Maze procedure and ligation of the left atrial appendage all occurred interoperatively left ventricular wall tear occurred and was repaired. The patient has a known history of multiple medical troubles before her surgery that included her obesity, COPD and marked deconditioning. Patient has had difficulties recently that included urinary tract infection with E. coli and Serratia and has been treated with intravenous antibiotic therapy with Zosyn. She was having some improvement but then developed dehiscence of her sternal wound and there are plans for surgical debridement tomorrow wound culture showing gram-negative bacilli and with at the infectious diseases consultation was requested. The patient continues to have significant respiratory difficulties and is currently on BiPAP for support. Postoperatively the patient was hemodynamically unstable which made even turning of the patient not possible which has resulted in unavoidable areas of skin breakdown, that are now treatable given her improvement 12/10/2017 reveals the patient to be postoperative from the sternal wound debridement. The surgical note as well as discussion with the surgical team reveals evidence of poor bone quality and all of the sternal wires had pulled through her bony areas. Negative pressure therapy is in place. She is tolerating this well. Plastic surgery consult has been requested for reconstruction of her chest in the near future. Gram-negative bacilli growing from the sternal wound. She is quite comfortable after procedure, chest tube was placed of the left cavity and this is improved some left lung function and she seems less short of breath. The daughter is present and her questions were answered. 12/11/2017 reveals the patient to have had some respiratory distress today and is back on BiPAP at this time. She relates that her pain is under much significant control. Been no other new acute complaints are being made. 12/13/2017 the patient remains in the ICU she is currently on BiPAP but relates that she is quite comfortable. We will work with the nursing staff to change her VAC dressing at this time. await the plastic surgery timeline. Objective - Vital Signs Vital signs: Vital Signs Temp 98.5 F 12/13/17 20:00 Pulse 137 H 12/13/17 23:00 Resp 18 12/13/17 23:00 BP 130/73 12/13/17 23:00 Pulse Ox 100 12/13/17 23:00 Intake & Output 12/13/17 12/13/17 12/14/17 06:59 18:59 06:59 Intake Total 300 1032 80 Output Total 265 2155 130 Balance 35 -1123 -50 Weight 101.6 kg 101.6 kg Intake: IV 300 738 80 FFP 298 Meropenem 1 gm In Sodium 100 200 Chloride 0.9% 100 ml @ 100 mls/hr IVPB Q8HR [facility] Rx#:[id number] Sodium Chloride 0.9% 1, 200 240 80 000 ml @ 20 mls/hr IV . Q24H [facility] Rx#:[id number] Blood Product 294 Ffp 24 Cpd Unit 294 [id number] Output: Chest Tube Drainage 80 0 Pleural Catheter Left 80 0 Drainage 1525 Medial Chest Incision - 1525 Woundvac Urine 265 550 130 Other: Voiding Method Bedpan Bedpan Indwelling Catheter # Voids 1 # Bowel Movements 1 1 ABP, PAP, CO, CI - Last Documented Arterial Blood Pressure 110/60 Pulmonary Artery Pressure 38/33 Cardiac Output 5.8 Cardiac Index 2.9 - Exam Obese 67-year-old woman who has a BiPAP for her shortness of breath. Does appear to be comfortable HEENT: Anicteric conjunctiva are pink and moist nasal mucosa grossly intact without significant lesions, there is no thrush. Oral mucosa is dry but no swapnil lesions could be seen Neck: The neck is supple without significant lymphadenopathy or thyromegaly. Lungs: Symmetrical air entry is noted. There is scattered crackles but no swapnil bronchial sounds Heart: Irregular with an audible S1 and S2 soft S4 no audible murmur no click or rub Chest: The patient's mid sternotomy incision has now been debrided and negative pressure therapy is in place. There is no significant tenderness. The drainage is being suctioned into the canister of the negative pressure system. Abdomen: Obese, Positive bowel sounds soft and nontender without palpable masses or organomegaly. There was no guarding or rebound. Extremities: The upper and lower extremities have evidence of edema harvest site is intact there is some bruising that is noted especially on the left groin area. IV sites are intact. Skin: On the lower back upper buttocks patient has a pressure ulcer stage III measuring 4 x 2 x 0.1 cm, clean at the base. Please refer to the nursing photography for further data. Also evidence of the foreskin tears two each on each buttocks measurements per nursing staff and hydrocolloid applied to all Neuro: Awake alert oriented to person place and time. There are no acute new gross focal sensory motor deficits. - Labs CBC & Chem 7: 12/13/17 04:34 12/13/17 04:34 Labs: Abnormal Lab Results - Last 24 Hours (Table) 12/13/17 12/13/17 12/13/17 Range/Units 04:34 04:34 05:27 WBC 24.6 H (3.8-10.6) k/uL RBC 3.17 L (3.80-5.40) m/uL Hgb 8.6 L (11.4-16.0) gm/dL Hct 28.1 L (34.0-46.0) % MCHC 30.5 L (31.0-37.0) g/dL RDW 18.5 H (11.5-15.5) % Neutrophils # 22.9 H (1.3-7.7) k/uL Lymphocytes # 0.5 L (1.0-4.8) k/uL PT 16.2 H (9.0-12.0) sec INR 1.8 H (<1.2) Carbon Dioxide 37 H (22-30) mmol/L BUN 43 H (7-17) mg/dL POC Glucose (mg/dL) (75-99) mg/dL Calcium 8.2 L (8.4-10.2) mg/dL Phosphorus 2.3 L (2.5-4.5) mg/dL Magnesium 2.5 H (1.6-2.3) mg/dL AST 53 H (14-36) U/L Total Protein 5.4 L (6.3-8.2) g/dL Albumin 2.4 L (3.5-5.0) g/dL 12/13/17 12/13/17 Range/Units 07:45 20:25 WBC (3.8-10.6) k/uL RBC (3.80-5.40) m/uL Hgb (11.4-16.0) gm/dL Hct (34.0-46.0) % MCHC (31.0-37.0) g/dL RDW (11.5-15.5) % Neutrophils # (1.3-7.7) k/uL Lymphocytes # (1.0-4.8) k/uL PT (9.0-12.0) sec INR (<1.2) Carbon Dioxide (22-30) mmol/L BUN (7-17) mg/dL POC Glucose (mg/dL) 173 H 134 H (75-99) mg/dL Calcium (8.4-10.2) mg/dL Phosphorus (2.5-4.5) mg/dL Magnesium (1.6-2.3) mg/dL AST (14-36) U/L Total Protein (6.3-8.2) g/dL Albumin (3.5-5.0) g/dL Microbiology - Last 24 Hours (Table) 12/13/17 05:27 Urine Culture - Preliminary Urine,Catheterized 12/10/17 10:40 Gram Stain - Final Chest Wound Culture - Final Serratia marcescens 12/10/17 10:45 Gram Stain - Final Chest Tissue Culture - Final Serratia marcescens 12/10/17 10:50 Gram Stain - Final Chest Tissue Culture - Final Serratia marcescens Laboratory Results WBC 24.6 k/uL (3.8-10.6) H 12/13/17 04:34 RBC 3.17 m/uL (3.80-5.40) L 12/13/17 04:34 Hgb 8.6 gm/dL (11.4-16.0) L 12/13/17 04:34 Hct 28.1 % (34.0-46.0) L 12/13/17 04:34 MCV 88.9 fL (80.0-100.0) 12/13/17 04:34 MCH 27.1 pg (25.0-35.0) 12/13/17 04:34 MCHC 30.5 g/dL (31.0-37.0) L 12/13/17 04:34 RDW 18.5 % (11.5-15.5) H 12/13/17 04:34 Plt Count 319 k/uL (150-450) 12/13/17 04:34 Neutrophils % 93 % 12/13/17 04:34 Neutrophils % (Manual) 98 % 12/05/17 04:25 Lymphocytes % 2 % 12/13/17 04:34 Lymphocytes % (Manual) 1 % 12/05/17 04:25 Monocytes % 4 % 12/13/17 04:34 Monocytes % (Manual) 1 % 12/05/17 04:25 Eosinophils % 0 % 12/13/17 04:34 Basophils % 0 % 12/13/17 04:34 Myelocytes % 1 % 12/03/17 04:15 Neutrophils # 22.9 k/uL (1.3-7.7) H 12/13/17 04:34 Neutrophils # (Manual) 26.95 k/uL (1.3-7.7) H 12/05/17 04:25 Lymphocytes # 0.5 k/uL (1.0-4.8) L 12/13/17 04:34 Lymphocytes # (Manual) 0.28 k/uL (1.0-4.8) L 12/05/17 04:25 Monocytes # 0.9 k/uL (0-1.0) 12/13/17 04:34 Monocytes # (Manual) 0.28 k/uL (0-1.0) 12/05/17 04:25 Eosinophils # 0.0 k/uL (0-0.7) 12/13/17 04:34 Basophils # 0.0 k/uL (0-0.2) 12/13/17 04:34 Myelocytes # (Manual) 0.17 k/uL (0) H 12/03/17 04:15 Nucleated RBCs 0 /100 WBC (0-0) 12/05/17 04:25 Manual Slide Review Performed 12/05/17 04:25 Polychromasia Present 12/03/17 04:15 Hypochromasia Marked 12/13/17 04:34 Poikilocytosis Moderate 12/13/17 04:34 Anisocytosis Slight 12/13/17 04:34 Microcytosis Slight 11/25/17 14:40 Target Cells Present 12/03/17 04:15 PT 16.2 sec (9.0-12.0) H 12/13/17 05:27 INR 1.8 (<1.2) H 12/13/17 05:27 APTT 23.3 sec (22.0-30.0) 11/28/17 11:45 Fibrinogen 334 mg/dL (200-500) 11/26/17 04:22 Sample Site rbrac 12/09/17 05:26 ABG pH 7.42 (7.35-7.45) 12/09/17 05:26 ABG pCO2 57 mmHg (35-45) H 12/09/17 05:26 ABG pO2 118 mmHg (83-108) H 12/09/17 05:26 ABG HCO3 37 mmol/L (21-25) H 12/09/17 05:26 ABG Total CO2 39 mmol/L (19-24) H 12/09/17 05:26 ABG O2 Saturation 98.2 % (94-97) H 12/09/17 05:26 ABG Base Excess 12.3 mmol/L 12/09/17 05:26 Robbi Test Yes 12/09/17 05:26 FiO2 50 % 12/09/17 05:26 Sodium 141 mmol/L (137-145) 12/13/17 04:34 Potassium 4.6 mmol/L (3.5-5.1) 12/13/17 04:34 Chloride 100 mmol/L (98-107) 12/13/17 04:34 Carbon Dioxide 37 mmol/L (22-30) H 12/13/17 04:34 Anion Gap 4 mmol/L 12/13/17 04:34 BUN 43 mg/dL (7-17) H 12/13/17 04:34 Creatinine 0.65 mg/dL (0.52-1.04) 12/13/17 04:34 Est GFR (MDRD) Af Amer >60 (>60 ml/min/1.73 sqM) 12/07/17 04:00 Est GFR (MDRD) Non-Af >60 (>60 ml/min/1.73 sqM) 12/07/17 04:00 Est GFR (CKD-EPI)AfAm >90 (>60 ml/min/1.73 sqM) 12/13/17 04:34 Est GFR (CKD-EPI)NonAf >90 (>60 ml/min/1.73 sqM) 12/13/17 04:34 Glucose 90 mg/dL (74-99) 12/13/17 04:34 POC Glucose (mg/dL) 134 mg/dL (75-99) H 12/13/17 20:25 POC Glu Adjuster Piano Action ID [place] 12/13/17 20:25 Calcium 8.2 mg/dL (8.4-10.2) L 12/13/17 04:34 Ionized Calcium Bruce 4.7 mg/dL (4.5-5.3) 12/11/17 15:45 Phosphorus 2.3 mg/dL (2.5-4.5) L 12/13/17 04:34 Magnesium 2.5 mg/dL (1.6-2.3) H 12/13/17 04:34 Total Bilirubin 0.6 mg/dL (0.2-1.3) 12/13/17 04:34 AST 53 U/L (14-36) H 12/13/17 04:34 ALT 43 U/L (9-52) 12/13/17 04:34 Alkaline Phosphatase 89 U/L (38-126) 12/13/17 04:34 Total Protein 5.4 g/dL (6.3-8.2) L 12/13/17 04:34 Albumin 2.4 g/dL (3.5-5.0) L 12/13/17 04:34 Urine Color Yellow 12/04/17 10:00 Urine Appearance Cloudy (Clear) H 12/04/17 10:00 Urine pH 5.5 (5.0-8.0) 12/04/17 10:00 Ur Specific [place] 1.015 (1.001-1.035) 12/04/17 10:00 Urine Protein Trace (Negative) H 12/04/17 10:00 Urine Glucose (UA) Negative (Negative) 12/04/17 10:00 Urine Ketones Negative (Negative) 12/04/17 10:00 Urine Blood Negative (Negative) 12/04/17 10:00 Urine Nitrite Negative (Negative) 12/04/17 10:00 Urine Bilirubin Negative (Negative) 12/04/17 10:00 Urine Urobilinogen <2.0 mg/dL (<2.0) 12/04/17 10:00 Ur Leukocyte Esterase Negative (Negative) 12/04/17 10:00 Urine RBC 7 /hpf (0-5) H 12/04/17 10:00 Urine WBC 1 /hpf (0-5) 12/04/17 10:00 Ur Squamous Epith Cells 8 /hpf (0-4) H 12/04/17 10:00 Urine Bacteria Occasional /hpf (None) H 12/04/17 10:00 Urine Mucus Rare /hpf (None) H 12/04/17 10:00 Heparin-Ind Plt Ab Scrn 0.231 OD (<0.4) 11/29/17 04:50 Blood Type A Positive 12/10/17 04:15 Blood Type Recheck No 12/10/17 04:15 Antibody Screen NEGATIVE 12/10/17 04:15 Crossmatch See Detail 12/01/17 07:45 Transfuse Cryo [id number] 11/26/17 00:39 Transfuse Plasma 12/13/17 12/13/17 10:40 Transfuse Platelets [id number] 11/25/17 14:55 Spec Expiration Date 12/13/2017 - 231412/10/17 04:15 Microbiology 12/13/17 05:27 Urine,Catheterized Urine Culture - Preliminary 12/10/17 10:40 Chest Gram Stain - Final 12/10/17 10:40 Chest Wound Culture - Final Serratia marcescens 12/10/17 10:45 Chest Gram Stain - Final 12/10/17 10:45 Chest Tissue Culture - Final Serratia marcescens 12/10/17 10:50 Chest Gram Stain - Final 12/10/17 10:50 Chest Tissue Culture - Final Serratia marcescens 12/10/17 10:50 Chest Anaerobic Culture - Preliminary 12/10/17 10:40 Chest Anaerobic Culture - Preliminary 12/10/17 10:45 Chest Anaerobic Culture - Preliminary 12/10/17 10:50 Chest Acid Fast Bacilli Smear - Final 12/10/17 10:50 Chest Acid Fast Bacilli Culture - Preliminary 12/10/17 10:45 Chest Acid Fast Bacilli Smear - Final 12/10/17 10:45 Chest Acid Fast Bacilli Culture - Preliminary 12/10/17 10:50 Chest Fungal Culture - Preliminary 12/10/17 10:40 Chest Fungal Culture - Preliminary 12/10/17 10:45 Chest Fungal Culture - Preliminary 12/07/17 15:40 Chest Gram Stain - Final 12/07/17 15:40 Chest Wound Culture - Final Serratia marcescens 12/04/17 10:00 Urine,Voided Urine Culture - Final Escherichia coli Serratia marcescens 11/26/17 04:00 Sputum Gram Stain - Final 11/26/17 04:00 Sputum Sputum Culture - Final Assessment and Plan (1) Severe mitral regurgitation Current Visit: Yes Status: Chronic Code(s): I34.0 - NONRHEUMATIC MITRAL ( VALVE) INSUFFICIENCY SNOMED Code(s): 65302661 (2) CAD (coronary artery disease) Current Visit: Yes Status: Chronic Code(s): I25.10 - ATHSCL HEART DISEASE OF [place] CORONARY ARTERY W/O ANG PCTRS SNOMED Code(s): 17511766 (3) Acute blood loss as cause of postoperative anemia Current Visit: Yes Status: Acute Code(s): D62 - ACUTE POSTHEMORRHAGIC ANEMIA SNOMED Code(s): 53360429474728046 (4) Pressure ulcer of contiguous region involving back and buttock, stage 3 Current Visit: Yes Status: Acute Code(s): L89.43 - PRESSR ULCER OF CONTIG SITE OF BACK, BUTTOCK AND HIP, STG 3 SNOMED Code(s): 269482231 (5) Sternal wound dehiscence Narrative/Plan: 67-year-old woman presents to Hospital for treatment of her severe mitral irritation. Underwent mitral valve replacement, coronary artery bypass grafting 1, Maze procedure and clipping of the left atrial appendage with a complication of the left ventricular wall tear. The patient has had a very protracted recovery she is now day 14 post operative and is still having difficulty with her respiratory status requiring BiPAP. The patient's nutritional status and underlying comorbidities have complicated her care. She now has evidence of the sternal dehiscence with evidence of gram negatives bacilli being found at the site. There is evidence of urinary tract infection with E. coli and Serratia. This Serratia species is somewhat resistant and consequently we'll alter the current antimicrobial therapy from Zosyn to meropenem to ensure coverage for other potential pathogens that are resistant that could be in the sternal wound while we await cultures. The patient will be going to the operating room tomorrow for debridement and wound VAC placement. The cultures were further direct the overall course of antibiotics. Urinary infection appears to be doing somewhat better. The patient fortunately is comfortable and doing well with her BiPAP. 12/10/2017 the patient is status post surgery and actually is feeling a bit better this afternoon than yesterday. Her pain is quite well controlled. She is not on BiPAP. She is less short of breath. Wound culture has verified the Serratia marcescens to the sternal wound. We'll constantly continue the current course of meropenem due to some of the resistance patterns or seeing with the species. Continue local care at this point time with the negative pressure system to the sternal wound. The plastic surgery consult is being requested for reconstruction of her chest. She will require a course of intravenous antibiotic therapy given her complex infection. Dual-lumen PICC is already in place. We'll repeat the discharge planners as to her place of rehab. 12/11/2017 the patient is metabolically stable but is having difficulties with her respiratory status and is now back on BiPAP which has been intermittent over the last multiple days. Negative pressure therapy remains intact and the sternum and we await the plastic surgery intervention. 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 Continue supportive care, and nutritional supplements as possible to improve for tissue healing. 12/13/2017 patient is on BiPAP. She is comfortable at this time. Receiving her intravenous antibiotic therapy without difficulties. At this time the surgeon present in a sterile fashion the wound VAC is removed. Surgeon evaluates and then the wound VAC is reapplied with 2 of the white foam, periwound protected with DuoDERM no difficulty with the seal. Merrem continues. Current Visit: Yes Status: Acute Code(s): T81.32XA - DISRUPTION OF INTERNAL OPERATION (SURGICAL) WOUND, NEC, INIT SNOMED Code(s): 82890970
[2017-12-14] MEDS: VANCOMYCIN 1,750 MG in SODIUM CHLORIDE 0.9% 250 ML IVPB SCH ×3 (00:54→23:52)
[2017-12-14] MEDS: HEPARIN SODIUM,PORCINE 5,000 UNIT/ML 1 ML VIAL SQ SCH ×3 (00:54→18:42)
[2017-12-14] MEDS: MEROPENEM 1 GM in SODIUM CHLORIDE 0.9% 100 ML IVPB SCH ×4 (00:54→23:52)
[2017-12-14] MEDS: HYDROcodone/APAP 5-325MG 1 EACH TAB PO PRN (01:16)
[2017-12-14] MEDS ORDERED: SODIUM CHLORIDE 0.9% 300 ML IV ONE (04:37)
[2017-12-14 04:48] LABS: Anisocytosis Slight; Basophils % (A) 0 %; Eosinophils # (A) 0.1 k/uL (0-0.7); Eosinophils % (A) 0 %; HCT 34.8 % (34.0-46.0); HGB 10.2 gm/dL (11.4-16.0); Hypochromasia Marked; Lymphocytes # (A) 0.6 k/uL (1.0-4.8); Lymphocytes % (A) 4 %; MCH 26.4 pg (25.0-35.0); MCHC 29.3 g/dL (31.0-37.0); MCV 90.2 fL (80.0-100.0); Mean Platelet Volume 7.6; Monocytes # (A) 0.6 k/uL (0-1.0); Monocytes % (A) 4 %; Neutrophils # (A) 15.7 k/uL (1.3-7.7); Neutrophils % (A) 92 %; Platelet Count 295 k/uL (150-450); Poikilocytosis Slight; RBC 3.85 m/uL (3.80-5.40); RDW 19.5 % (11.5-15.5); WBC 17.1 k/uL (3.8-10.6)
[2017-12-14 04:55] LABS: ALT 41 U/L (9-52); AST 57 U/L (14-36); Albumin 2.5 g/dL (3.5-5.0); Alkaline Phosphatase 90 U/L (38-126); Anion Gap 5 mmol/L; Blood Urea Nitrogen 44 mg/dL (7-17); Calcium 8.5 mg/dL (8.4-10.2); Carbon Dioxide 36 mmol/L (22-30); Chloride 100 mmol/L (98-107); Glucose 109 mg/dL (74-99); Potassium 4.3 mmol/L (3.5-5.1); Sodium 141 mmol/L (137-145); Total Bilirubin 0.7 mg/dL (0.2-1.3); Total Protein 5.7 g/dL (6.3-8.2)
[2017-12-14 05:19] LABS: INR 2.1 (<1.2); Prothrombin Time 19.3 sec (9.0-12.0)
[2017-12-14 06:42] LABS: Glucose,Whole Blood 100 mg/dL (75-99)
[2017-12-14] MEDS: INSULIN ASPART 100 UNIT/ML 1 ML 10 ML VIAL SQ SCH ×4 (06:42→20:03)
[2017-12-14 06:43] LABS: Magnesium 2.6 mg/dL (1.6-2.3); Phosphorus 2.9 mg/dL (2.5-4.5)
[2017-12-14] MEDS: IPRATROPIUM-ALBUTEROL 3 ML NEB INHALATION SCH ×4 (07:45→19:40)
[2017-12-14] MEDS: BUDESONIDE 1 MG/2 ML NEBU INHALATION SCH ×2 (07:45→19:40)
[2017-12-14] MEDS ORDERED: ACETAMINOPHEN IV (For NPO) 1,000 MG in EMPTY BAG 1 BAG IVPB STA (08:49)
--- NOTE | 2017-12-14 10:11 | XR ---
EXAMINATION TYPE: XR chest 1V portable DATE OF EXAM: 12/14/2017 COMPARISON: 12/13/2017 HISTORY: Postop TECHNIQUE: Single frontal view of the chest is obtained. FINDINGS: Vascular stent, cardiomegaly and postsurgical changes are seen. Left-sided chest tube stab le persistent near complete opacification left hemithorax. Right-sided pleural effusion and consolida tion stable. Underlying venous congestion not excluded. IMPRESSION: There is stable pleural-parenchymal changes within the left upper lobe relative to the p revious exam.
--- NOTE | 2017-12-14 11:39 | P.PN ---
Subjective Progress Note Date: 12/14/17 Principal diagnosis: Severe mitral valve regurgitation. Coronary artery disease. Preoperative paroxysmal atrial fibrillation on outpatient Coumadin for anticoagulation. Recent hospitalization for lower GI bleed, and duodenal ulcer. History of left subclavian stenosis with stent placement 2014 with recent discovery of critical re-in-stent stenosis. Previous tobacco dependence with preoperative FEV1 60% of predicted. Hypertension. Hyperlipidemia. Depression on Lexapro. Gallbladder disease. Family history of heart disease. Preoperative nasal swab positive for MRSA. Preoperative anemia. POD #19 Mitral valve replacement using a 25 mm Ribera bioprosthetic tissue valve. Coronary artery bypass grafting 1, a reverse greater saphenous vein graft to the obtuse marginal coronary artery. Endoscopic harvesting of the left greater saphenous vein. Modified MAZE procedure. The report wasn't back yet not back in Ligation of the left atrial appendage using a 40 mm AtriClip. Epi- aortic ultrasound. Intraoperative transesophageal echocardiogram. Intraoperative left ventricular wall tear, an unexpected but potential outcome of surgery. Acute blood loss anemia, an expected outcome given patient's preoperative anemia and intraoperative bleeding. Postoperative prolonged mechanical ventilation secondary to hemodynamic instability, an unexpected but potential outcome of surgery given the extensive nature of her postoperative course. Sternal incision dehiscence, possible outcome of surgery given the patient's obesity, nutrition status and ability. POD #4 sternal wound debridement with placement of wound VAC. Patient is currently sitting in the chair position in bed. She is in no acute distress. She is alert and oriented x 3. She remains complaining of generalized weakness and decreased appetite. She is currently on BiPAP support 14/5, rate of 12, FiO2 40% with oxygen saturations of 100%. Wound VAC dressing in place to her midline sternal wound and was changed yesterday 12/13/2017. The patient's INR is 2.1 today and will receive 2 units of FFP today prior to her bedside bronchoscopy to be performed by Dr. Rutledge. Objective - Vital Signs Vital signs: Vital Signs Temp 96.5 F L 12/14/17 08:00 Pulse 123 H 12/14/17 09:00 Resp 14 12/14/17 09:00 BP 105/74 12/14/17 09:00 Pulse Ox 100 12/14/17 09:00 Intake & Output 12/13/17 12/14/17 12/14/17 18:59 06:59 18:59 Intake Total 1032 240 60 Output Total 2155 540 105 Balance -1123 -300 -45 Weight 101.6 kg 100.6 kg 100.6 kg Intake: IV 738 240 60 FFP 298 Meropenem 1 gm In Sodium 200 Chloride 0.9% 100 ml @ 100 mls/hr IVPB Q8HR [facility]E Rx#:[id number] Sodium Chloride 0.9% 1, 240 240 60 000 ml @ 20 mls/hr IV . Q24H [facility]LEE Rx#:[id number] Blood Product 294 Ffp 24 Cpd Unit 294 [id number] Output: Chest Tube Drainage 80 0 Pleural Catheter Left 80 0 Drainage 1525 225 25 Medial Chest Incision - 1525 225 25 Woundvac Urine 550 315 80 Other: Voiding Method Bedpan Indwelling Catheter Indwelling Catheter # Bowel Movements 1 ABP, PAP, CO, CI - Last Documented Arterial Blood Pressure 110/60 Pulmonary Artery Pressure 38/33 Cardiac Output 5.8 Cardiac Index 2.9 - Constitutional General appearance: Present: cooperative, no acute distress, obese - EENT ENT: Present: hearing grossly normal - Neck Details: Neck is supple, no JVD or lymphadenopathy. - Respiratory Details: Lung sounds are essentially clear but diminished throughout, diminished to her left lower lobe. Respirations are symmetrical and unlabored with BiPAP support. Current BiPAP settings are as follows 14/5, rate of 12, FiO2 40%. Current oxygen saturation are 100% with BiPAP support. Left pleural chest tube remains intact evacuating thin serosanguineous drainage. No air leak present. Chest tube remains to low continuous wall suction -20 cm H2O. 80 mL output in the last 24 hours. - Cardiovascular Details: Irregular rhythm with a tachycardic rate. S1 and S2 present, negative for S3, gallop or murmur. Sternal wound with wound VAC in place, current settings are continuous mode, 125 mmHg pressure, medium intensity. Knee-high DANITZA hose and sequential compression devices in place to her bilateral lower extremity Vance. Left arm PICC line patent and functioning. +2 edema to her bilateral lower extremities. - Gastrointestinal Gastrointestinal Comment(s): Abdomen is soft, nontender and nondistended. Active bowel sounds all 4 abdominal quadrants. Tolerating minimal intake. Bowel movement this a.m. - Genitourinary Genitourinary Comment(s): Mason catheter for accurate I&O. Clear yellow urine. Urine output marginal, 185 ml output last 8 hours. - Integumentary Integumentary Comment(s): Skin is warm and dry. Wound VAC in place to sternal wound. Scant serosanguineous drainage. Stage II wound to her coccyx with local with wound care treatment. No clubbing or cyanosis. Left leg EVH site clean dry and well approximated. No redness or drainage present. - Neurologic Neurologic: Present: CNII-XII intact - Musculoskeletal Musculoskeletal: Present: generalized weakness, strength equal bilaterally - Psychiatric Psychiatric: Present: A&O x's 3, appropriate affect, intact judgment & insight - Allied health notes Allied health notes reviewed: nursing - Labs CBC & Chem 7: 12/14/17 04:34 12/14/17 04:34 Labs: Abnormal Lab Results - Last 24 Hours (Table) 12/13/17 12/14/17 12/14/17 Range/Units 20:25 04:34 04:34 WBC 17.1 H (3.8-10.6) k/uL Hgb 10.2 L (11.4-16.0) gm/dL MCHC 29.3 L (31.0-37.0) g/dL RDW 19.5 H (11.5-15.5) % Neutrophils # 15.7 H (1.3-7.7) k/uL Lymphocytes # 0.6 L (1.0-4.8) k/uL PT 19.3 H (9.0-12.0) sec INR 2.1 H (<1.2) Carbon Dioxide (22-30) mmol/L BUN (7-17) mg/dL Glucose (74-99) mg/dL POC Glucose (mg/dL) 134 H (75-99) mg/dL Magnesium (1.6-2.3) mg/dL AST (14-36) U/L Total Protein (6.3-8.2) g/dL Albumin (3.5-5.0) g/dL 12/14/17 12/14/17 12/14/17 Range/Units 04:34 04:34 06:41 WBC (3.8-10.6) k/uL Hgb (11.4-16.0) gm/dL MCHC (31.0-37.0) g/dL RDW (11.5-15.5) % Neutrophils # (1.3-7.7) k/uL Lymphocytes # (1.0-4.8) k/uL PT (9.0-12.0) sec INR (<1.2) Carbon Dioxide 36 H (22-30) mmol/L BUN 44 H (7-17) mg/dL Glucose 109 H (74-99) mg/dL POC Glucose (mg/dL) 100 H (75-99) mg/dL Magnesium 2.6 H (1.6-2.3) mg/dL AST 57 H (14-36) U/L Total Protein 5.7 L (6.3-8.2) g/dL Albumin 2.5 L (3.5-5.0) g/dL Microbiology - Last 24 Hours (Table) 12/13/17 05:27 Urine Culture - Preliminary Urine,Catheterized 12/10/17 10:40 Gram Stain - Final Chest Wound Culture - Final Serratia marcescens 12/10/17 10:45 Gram Stain - Final Chest Tissue Culture - Final Serratia marcescens - Imaging and Cardiology Chest x-ray: report reviewed, image reviewed Assessment and Plan (1) Acute blood loss as cause of postoperative anemia Current Visit: Yes Status: Acute Code(s): D62 - ACUTE POSTHEMORRHAGIC ANEMIA SNOMED Code(s): 66841150971520620 (2) CAD (coronary artery disease) Current Visit: Yes Status: Chronic Code(s): I25.10 - ATHSCL HEART DISEASE OF [place] CORONARY ARTERY W/O ANG PCTRS SNOMED Code(s): 19222117 (3) Family history of coronary artery disease Current Visit: Yes Status: Chronic Code(s): Z82.49 - FAMILY HX OF ISCHEM HEART DIS AND OTH DIS OF THE CIRC SYS SNOMED Code(s): 972661394 (4) Hyperlipidemia Current Visit: Yes Status: Chronic Code(s): E78.5 - HYPERLIPIDEMIA, UNSPECIFIED SNOMED Code(s): 88725676 (5) Hypertension Current Visit: Yes Status: Chronic Code(s): I10 - ESSENTIAL (PRIMARY) HYPERTENSION SNOMED Code(s): 55804838 (6) Severe mitral regurgitation Current Visit: Yes Status: Chronic Code(s): I34.0 - NONRHEUMATIC MITRAL ( VALVE) INSUFFICIENCY SNOMED Code(s): 55339575 (7) Stenosis of left subclavian artery Current Visit: Yes Status: Chronic Code(s): I77.1 - STRICTURE OF ARTERY SNOMED Code(s): 57511105275276022 (8) PAD (peripheral artery disease) Current Visit: No Status: Acute Code(s): I73.9 - PERIPHERAL VASCULAR DISEASE , UNSPECIFIED SNOMED Code(s): 123386271 (9) History of GI bleed Current Visit: No Status: Resolved Code(s): Z87.19 - PERSONAL HISTORY OF OTHER DISEASES OF THE DIGESTIVE SYSTEM SNOMED Code(s): 327982085 (10) Paroxysmal atrial fibrillation Current Visit: No Status: Resolved Code(s): I48.0 - PAROXYSMAL ATRIAL FIBRILLATION SNOMED Code(s): 111304348 (11) Elevated aspartate aminotransferase level Current Visit: Yes Status: Acute Code(s): R74.0 - NONSPEC ELEV OF LEVELS OF TRANSAMNS & LACTIC ACID DEHYDRGNSE SNOMED Code(s): 968309038 Plan: 1. Continue low-dose aspirin, statin, subcutaneous heparin, beta krunal. Will increase beta krunal therapy as tolerated. 2. Continue amiodarone for history of paroxysmal atrial fibrillation on home amiodarone. 3. Wean O2 as tolerated. BiPAP management per pulmonology. Encourage incentive spirometry use 10x every hour. patient is scheduled for a bedside bronchoscopy with lavage today to be performed by Dr. Rutledge. 4. Urine culture from December 04 was positive for E. coli and Serratia, currently on meropenem and vancomycin. IV antibiotic management per Dr. Olivera. 5. Sternal incision cultured, consistent with Serratia. Placed on meropenem per Dr. Olivera. Wound VAC in place to be changed Wednesday, Wednesday, and Fridays. Dr. Krause consulted for future wound flap closure. Sternal debridement tissue specimen Gram stain showing Serratia marcescens. 6. Will monitor labs, chest x-rays. 7. Bronchodilators per pulmonology management. 8. We will hold Coumadin for now until sternal muscle flap surgery is complete. 9. GI/DVT prophylaxis. 10. Increase activity as tolerated. PT/OT/cardiac rehab following. 11. Keep patient in the ICU for close monitoring. 12. Continue Mason catheter for accurate I&O. 13. Encourage nutrition, calorie count recommendations per dietitian. 14. More recommendations as patient progresses in her care. Time with Patient: Greater than 30
[2017-12-14 12:00] LABS: Glucose,Whole Blood 86 mg/dL (75-99)
[2017-12-14] MEDS: METOPROLOL TARTRATE 50 MG TAB PO SCH ×2 (12:45→21:05)
[2017-12-14] MEDS: LACTOBACILLUS ACIDOPH & BULGAR 1 EACH PACKET PO SCH ×3 (12:45→20:33)
[2017-12-14] MEDS: AMIODARONE 200 MG TAB PO SCH ×2 (12:46→20:34)
--- NOTE | 2017-12-14 12:59 | P.PN ---
Subjective Progress Note Date: 12/14/17 Principal diagnosis: Status post mitral valve replacement with maze procedure postoperative day #18 On 12/11/2017 I'm seeing this patient for a follow-up. The patient is this morning, comfortable in the BiPAP. She is using the BiPAP on and off during the day. She was taken to the operating room where his surgical wound was debrided and the sternum was debrided and the wound VAC was applied. There is a positive gram-negative infection with Serratia and the patient is currently on IV Merrem. Also, left-sided chest tube was inserted. The chest tube drained approximately 130 mL of fluid for yesterday since it was placed and another 60 mL for today. The patient's pleural wound VAC has drained approximately 550 mL for yesterday and another 100 mL for today. The patient is afebrile. The patient is hemodynamically stable. The patient went into atrial fibrillation and this morning she converted into sinus and she is back and forth between flutter and sinus rhythm. She is on no pressors. Her INR is at 1.8. No anticoagulation will be offered today. Lasix surgery consultation was obtained for a future muscle flap. Hemoglobin is at 7.7. White cell count is at 16.3. The function is stable with a creatinine of 0.8. She is using incentive spirometer. She has no other complaints otherwise for now. On 12/12/2017, the patient is still doing well. The patient is sitting up in her bed and she is on a BiPAP at a pressure of 14/5 cm of water with an FiO2 of 50%. Her chest x-ray is quite stable and the patient has still a persistent consolidation/opacity in the left lung base. I have scanned the patient earlier this week and the findings the left lung bases consistent with some posterior pericardial effusion, atelectasis and small effusions. For that reason a chest tube was inserted and the total amount of output from the chest tube was 300 mL and since then the output has dropped considerably. The wound VAC is in place and the total amount of output over the past 12 hours as been around 250 mL. The wound cultures are showing gram-negative, the previous fluid drainage was positive for Serratia and the patient is currently on IV Merrem. White cell count is up to 19 and this is something to monitor knowing that her white cell count from yesterday was 16.3. Renal function is stable. She is producing adequate amount of urine output. Abdomen today is at 8.1. She is weak. She is taking approximately 20% of her diet and she is drinking a sure. Her cardiac rhythm is a flutter with 2 to one block and since this morning the patient became progressively more tachycardic. She received an additional amiodarone dose yesterday without much benefit. She is on beta blockers on metoprolol at a dose of 50 mg by mouth twice a day. She became slightly hypotensive yesterday and she was supposed to get albumin which was not given as the patient's blood pressure subsequently improved. She is off anticoagulation awaiting a sternal flap and the patient's INR today is at 1.7. Patient was reevaluated today on 12/13/2017, remains with very marginal pulmonary status, remains on BiPAP, FiO2 of 50%, IPAP of 14 and EPAP of 5. Chest x-ray seems to be worsening, CT of the chest is also worsening there is also a near-complete collapse of the left lung, only a small portion of the upper lobe remains aerated. Small pleural effusions noted, and what is worsening is the fact that she has an enlarging moderate to large pericardial effusion measuring 2.7 cm in thickness. This is along the left heart margin but increasing along the right heart margin measuring now 1.7 cm compared to 1 cm previously. Considering the findings, I felt strongly that the patient may benefit from bronchoscopy and left lung evaluation, however with the finding of increasing pericardial effusion, may have to be seen by thoracic surgery and consider a pericardial window. Her labs were reviewed, WBC count is 24.6 hemoglobin is 8.6 and her INR is 1.8. Patient is noted to be a bit dyspneic on BiPAP at 50%. Patient was reevaluated today on 12/14/2017, remains on BiPAP, patient is afraid to get off BiPAP. Same settings including IPAP of 14 and EPAP of 5, and she is on 50% FiO2. No evidence of leak, her tidal volume is anywhere between 450-500 , and her rate is about 18. Chest x-ray today showed slight improvement in the left lung collapse, however continues to have significant collapse of the left lower lobe. No bronchoscopy was done yesterday mostly because of the abnormal finding regarding her pericardial effusion, and we were not certain whether the patient will need a pericardial window at the time. The surgeons felt no need for pericardial window, patient was scheduled for bronchoscopy early this morning, but her INR is elevated, hence we recommended 2 units of fresh frozen plasma, and I still plan to do the bronchoscopy this afternoon. Family was made aware of the reasons for delay, but hopefully we can get it done sometime this afternoon. Labs were reviewed, her WBC count is 17.1 hemoglobin is 10.2 her INR was 2.1 earlier today. Rest of the labs were reviewed. Hemodynamically the patient is stable, intermittently she may have episodes of atrial flutter without hemodynamic instability. Objective - Vital Signs Vital signs: Vital Signs Temp 99.0 F 12/14/17 11:57 Pulse 120 H 12/14/17 12:00 Resp 21 12/14/17 12:00 BP 135/68 12/14/17 12:00 Pulse Ox 100 12/14/17 12:00 Intake & Output 12/13/17 12/14/17 12/14/17 18:59 06:59 18:59 Intake Total 1032 240 220 Output Total 2155 540 190 Balance -1123 -300 30 Weight 101.6 kg 100.6 kg 100.6 kg Intake: IV 738 240 220 FFP 298 Meropenem 1 gm In Sodium 200 100 Chloride 0.9% 100 ml @ 100 mls/hr IVPB Q8HR [facility] Rx#:[id number] Sodium Chloride 0.9% 1, 240 240 120 000 ml @ 20 mls/hr IV . Q24H [facility] Rx#:[id number] Blood Product 294 0 Ffp 24 Cpd Unit 0 [id number] Ffp 24 Cpd Unit 294 [id number] Output: Chest Tube Drainage 80 0 Pleural Catheter Left 80 0 Drainage 1525 225 25 Medial Chest Incision - 1525 225 25 Woundvac Urine 550 315 165 Other: Voiding Method Bedpan Indwelling Catheter Indwelling Catheter # Bowel Movements 1 ABP, PAP, CO, CI - Last Documented Arterial Blood Pressure 110/60 Pulmonary Artery Pressure 38/33 Cardiac Output 5.8 Cardiac Index 2.9 - Exam - Constitutional General appearance: Physical exam revealed a 67-year-old, female, on BiPAP, in no distress. - EENT ENT: Dry mucous membranes, no neck masses, BiPAP is in place. Throat is clear. - Neck Details: No neck masses, no JVD, throat is clear, no stridor. - Respiratory Details: diminished breath sounds at the left base.. Respirations are symmetrical and unlabored with BiPAP support. Left pleural chest tube remains intact evacuating thin serosanguineous drainage. No air leak present. Chest tube remains to low continuous wall suction -20 cm H2O. 80 mL output in the last 24 hours. - Cardiovascular Details: Irregular rhythm with a tachycardic rate. S1 and S2 present, negative for S3, gallop or murmur. Sternal wound with wound VAC in place, - Gastrointestinal Gastrointestinal Comment(s): Obese, soft, nontender, no megaly, no rebound, no guarding, positive bowel sounds.- Genitourinary Genitourinary Comment(s): Mason catheter remains in place with good urine output - Integumentary Integumentary Comment(s): Skin is relatively unremarkable.. Wound VAC in place to sternal wound. Scant serosanguineous drainage. Stage II wound to her coccyx with local with wound care treatment. No clubbing or cyanosis. - Neurologic Neurologic: Alert oriented 3, no gross focal neurologic deficit - Musculoskeletal Musculoskeletal: Generalized weakness, otherwise relatively unremarkable. - Psychiatric Psychiatric: Normal mood, affect, and normal mental status examination. - Labs CBC & Chem 7: 12/14/17 04:34 12/14/17 04:34 Labs: Abnormal Lab Results - Last 24 Hours (Table) 12/13/17 12/14/17 12/14/17 Range/Units 20:25 04:34 04:34 WBC 17.1 H (3.8-10.6) k/uL Hgb 10.2 L (11.4-16.0) gm/dL MCHC 29.3 L (31.0-37.0) g/dL RDW 19.5 H (11.5-15.5) % Neutrophils # 15.7 H (1.3-7.7) k/uL Lymphocytes # 0.6 L (1.0-4.8) k/uL PT 19.3 H (9.0-12.0) sec INR 2.1 H (<1.2) Carbon Dioxide (22-30) mmol/L BUN (7-17) mg/dL Glucose (74-99) mg/dL POC Glucose (mg/dL) 134 H (75-99) mg/dL Magnesium (1.6-2.3) mg/dL AST (14-36) U/L Total Protein (6.3-8.2) g/dL Albumin (3.5-5.0) g/dL 12/14/17 12/14/17 12/14/17 Range/Units 04:34 04:34 06:41 WBC (3.8-10.6) k/uL Hgb (11.4-16.0) gm/dL MCHC (31.0-37.0) g/dL RDW (11.5-15.5) % Neutrophils # (1.3-7.7) k/uL Lymphocytes # (1.0-4.8) k/uL PT (9.0-12.0) sec INR (<1.2) Carbon Dioxide 36 H (22-30) mmol/L BUN 44 H (7-17) mg/dL Glucose 109 H (74-99) mg/dL POC Glucose (mg/dL) 100 H (75-99) mg/dL Magnesium 2.6 H (1.6-2.3) mg/dL AST 57 H (14-36) U/L Total Protein 5.7 L (6.3-8.2) g/dL Albumin 2.5 L (3.5-5.0) g/dL Microbiology - Last 24 Hours (Table) 12/13/17 05:27 Urine Culture - Preliminary Urine,Catheterized 12/10/17 10:40 Gram Stain - Final Chest Wound Culture - Final Serratia marcescens 12/10/17 10:45 Gram Stain - Final Chest Tissue Culture - Final Serratia marcescens Assessment and Plan Assessment: 1. Severe mitral valve regurgitation, status post mitral valve replacement, with Maze procedure, left atrial appendage exclusion, and one-vessel bypass, postop day #18 2 sternal wound dehiscence/infection with gram-negative infection and the patient has Serratia currently on Merrem. The patient underwent debridement and the wound VAC is applied. She will ultimately need a flap and plastic surgery has been consulted. The patient remains on IV meropenem. Afebrile. White cell count is at 19. Wound VAC remains in place. 3 left basilar atelectasis/and left lower lobe collapse, may benefit from bronchoscopy and lavage of the left lower lobe. 4 acute respiratory failure, hypoxic and hypercapnic, tolerating BiPAP without any major difficulties at a pressure of 14/5 cm of water. 5. acute urinary tract infection, urine culture positive for E. coli and Serratia marcescens, was initially treated with Zosyn, now on meropenem 6. Anemia, multifactorial in the patient's hemoglobin is at 10.2 7 paroxysmal atrial flutter with rapid ventricular response currently on beta blockers and oral amiodarone, on no anticoagulation and INR is 1.8, however the patient requires a bronchoscopy or pericardial window, the patient would benefit from giving her a unit of fresh frozen plasma today. 8 left subclavian stenosis 9 leukocytosis 10 obesity 11 previous history of GI bleed 12 pressure ulceration in the back and buttocks, stage III Recommendation: Continue present supportive care measures, continue BiPAP, discussed her condition with different consultants on the case including cardiothoracic surgery, and we'll likely proceed with bronchoscopy and BAL of the left lower lobe today. In the meantime the patient will receive fresh frozen plasma, and hopefully will get her INR to lower than 1.5. Discussed her condition with her daughter at bedside, critical care time is 32 minutes not including time spent on procedures. Time with Patient: Greater than 30
[2017-12-14] MEDS ORDERED: FUROSEMIDE 10 MG/ML 4 ML VIAL IV STA (14:10)
[2017-12-14] MEDS ORDERED: DEXTROSE 5% IN WATER 100 ML with AMIODARONE 150 MG IV ONE (14:12)
[2017-12-14] MEDS ORDERED: METOPROLOL TARTRATE 5 MG/5 ML VIAL IVP ONE (14:45)
[2017-12-14] MEDS ORDERED: MORPHINE SULFATE 4 MG/ML SYRINGE ONE (15:00)
[2017-12-14] MEDS: SODIUM CHLORIDE 0.9% 1,000 ML IV SCH (15:20)
[2017-12-14] MEDS: PANTOPRAZOLE 40 MG TABLET PO SCH (15:23)
[2017-12-14] MEDS: ATORVASTATIN 40 MG TAB PO SCH (15:23)
--- NOTE | 2017-12-14 15:55 | P.PN ---
Subjective Progress Note Date: 12/14/17 Progress note being dictated for Dr. Kitchen Interval history: This is 67-year-old female status post CABG, mitral valve replacement, status post multiple blood products transfusions. Remains vent dependent on 40% FiO2/+5 of PEEP. Chest x-ray reporting fluid overload, improvement in volume status, aeration.Maintained on norepinephrine, Primacor, dopamine and insulin drip. Cardiac index 2.7. Telemetry atrial flutter/sinus tach. Tube feeding initiated via OG tube. Hemoglobin 7.3, Platelets decreased to 64 today, maintained on low-dose aspirin. Review systems unable to obtain as patient sedated and on mechanical ventilation. Active Medications Albuterol/Ipratropium (Duoneb 0.5 Mg-3 Mg/3 Ml Soln) 3 ml INHALATION RT-Q4H [facility] Last Admin: 11/29/17 15:17 Dose: 3 ml Albuterol/Ipratropium (Duoneb 0.5 Mg-3 Mg/3 Ml Soln) 3 ml INHALATION RT-Q2H PRN PRN Reason: Shortness Of Breath Or Wheezing Amiodarone HCl (Cordarone) 200 mg PO BID [facility] Aspirin (Aspirin) 81 mg PO DAILY [facility] Last Admin: 11/29/17 08:54 Dose: 81 mg Atorvastatin Calcium (Lipitor) 40 mg PO DAILY [facility] Last Admin: 11/29/17 08:54 Dose: 40 mg Benzocaine/Menthol (Cepacol Lozenge) 1 each MUCOUS MEM Q2H PRN PRN Reason: Sore Throat Bisacodyl (Dulcolax) 10 mg RECTAL DAILY PRN PRN Reason: Constipation Chlorhexidine Gluconate (Peridex) 15 ml MUCOUS MEM BID [facility] Last Admin: 11/29/17 08:48 Dose: 15 ml Furosemide (Lasix) 40 mg IV ONCE ONE Stop: 11/29/17 20:01 Propofol 1,000 mg/ IV Solution 100 mls @ 0 mls/hr IV .Q0M [facility]; Titrate PRN Reason: Protocol Last Admin: 11/29/17 17:54 Dose: 26.13 mcg/kg/min, 17.2 mls/hr Norepinephrine Bitartrate (Levophed-0.9% Nacl 16 Mg/250ml Pmx) 16 mg in 250 mls @ 0 mls/hr IV .Q0M [facility]; Titrate PRN Reason: Protocol Last Admin: 11/29/17 17:54 Dose: 2 mcg/min, 1.875 mls/hr Sodium Chloride (Saline 0.45%) 1,000 mls @ 30 mls/hr IV .Q24H [facility] Last Admin: 11/29/17 10:28 Dose: Not Given Milrinone Lactate/Dextrose 20 (mg/ IV Solution) 100 mls @ 6.58 mls/hr IV .[id number] [facility] PRN Reason: 0.2 MCG/KG/MIN Last Admin: 11/29/17 15:38 Dose: 0.2 mcg/kg/min, 6.58 mls/hr Insulin Aspart (Novolog) 0 unit SQ Q6HR [facility] PRN Reason: Protocol Last Admin: 11/29/17 12:36 Dose: Not Given Magnesium Hydroxide (Milk Of Magnesia) 2,400 mg PO BID PRN PRN Reason: Constipation Metoprolol Tartrate (Lopressor) 12.5 mg PO BID [facility] Last Admin: 11/29/17 08:55 Dose: 12.5 mg Miscellaneous Information (Magnesium Per Protocol) 1 each MISCELLANE DAILY PRN ; Protocol PRN Reason: Per Protocol Miscellaneous Information (Phosphorus Per Protocol) 1 each MISCELLANE DAILY PRN ; Protocol PRN Reason: Per Protocol Miscellaneous Information (Potassium Per Protocol) 1 each MISCELLANE DAILY PRN ; Protocol PRN Reason: Per Protocol Miscellaneous Information (Potassium Per Protocol) 1 each MISCELLANE DAILY PRN ; Protocol PRN Reason: Per Protocol Morphine Sulfate (Morphine Oral Dana 2mg/Ml) 6 mg PO Q2H PRN PRN Reason: Severe Pain Ondansetron HCl (Zofran) 4 mg IVP Q6HR PRN PRN Reason: Nausea And Vomiting Pantoprazole Sodium (Protonix) 40 mg IVP DAILY [facility] Last Admin: 11/29/17 08:55 Dose: 40 mg Senna/Docusate Sodium (Senokot-S) 2 each PO HS [facility] Last Admin: 11/28/17 20:41 Dose: 2 each Sodium Chloride (Saline Flush) 10 ml IV BID [facility] Last Admin: 11/29/17 08:56 Dose: 10 ml 11/30/2017 Chest x-ray reporting increased congestion, received additional Lasix. extubated this morning, currently maintained on BiPAP. Norepinephrine weaned off this morning. Maintained on Primacor, cardiac index 2.6. Received 1 dose of Lasix IV push. Renal function improving. Hemoglobin 7, platelets increased to 74. Atrial flutter per telemetry. Review systems unable to obtain as patient BiPAP dependent. Active Medications Generic Name Dose Route Start Last Admin Trade Name Freq PRN Reason Stop Dose Admin Albuterol/Ipratropium 3 ml 11/25/17 20:00 11/30/17 15:23 Duoneb 0.5 Mg-3 Mg/3 Ml Soln INHALATION 3 ml RT-Q4H [facility] Administration Albuterol/Ipratropium 3 ml 11/26/17 17:53 Duoneb 0.5 Mg-3 Mg/3 Ml Soln INHALATION RT-Q2H PRN Shortness Of Breath Or Wheezing Amiodarone HCl 200 mg 11/29/17 21:00 11/30/17 08:14 Cordarone PO 200 mg BID [facility] Administration Aspirin 81 mg 11/26/17 10:15 11/30/17 08:15 Aspirin PO 81 mg DAILY [facility] Administration Atorvastatin Calcium 40 mg 11/26/17 09:00 11/30/17 08:14 Lipitor PO 40 mg DAILY [facility] Administration Benzocaine/Menthol 1 each 11/25/17 19:03 Cepacol Lozenge MUCOUS MEM Q2H PRN Sore Throat Bisacodyl 10 mg 11/26/17 17:52 Dulcolax RECTAL DAILY PRN Constipation Fondaparinux 2.5 mg 11/30/17 11:30 11/30/17 13:23 Arixtra SQ 2.5 mg DAILY [facility] Administration Norepinephrine Bitartrate 16 mg in 250 mls @ 0 mls/hr 11/26/17 04:15 11:58 Levophed-0.9% Nacl 16 Mg/250ml Pmx IV 0 mcg/min .Q0M [facility] 0 mls/hr Protocol Titration Titrate Sodium Chloride 1,000 mls @ 10 mls/hr 11/26/17 10:15 11/30/17 12:51 Saline 0.45% IV Not Given .Q24H [facility] Milrinone Lactate/Dextrose 20 100 mls @ 6.58 mls/hr 11/29/17 15:00 11/30/17 08:16 mg/ IV Solution IV 0.2 mcg/kg/min .[id number] [facility] 6.58 mls/hr 0.2 MCG/KG/MIN Infusion Insulin Aspart 0 unit 11/29/17 12:00 11/30/17 12:50 Novolog SQ Not Given Q6HR [facility] Protocol Magnesium Hydroxide 2,400 mg 11/26/17 17:53 Milk Of Magnesia PO BID PRN Constipation Metoprolol Tartrate 12.5 mg 11/26/17 09:00 11/30/17 08:15 Lopressor PO 12.5 mg BID [facility] Administration Miscellaneous Information 1 each 11/25/17 19:03 Magnesium Per Protocol MISCELLANE DAILY PRN Per Protocol Protocol Miscellaneous Information 1 each 11/25/17 19:03 Phosphorus Per Protocol MISCELLANE DAILY PRN Per Protocol Protocol Miscellaneous Information 1 each 11/25/17 19:03 Potassium Per Protocol MISCELLANE DAILY PRN Per Protocol Protocol Miscellaneous Information 1 each 11/29/17 12:01 Potassium Per Protocol MISCELLANE DAILY PRN Per Protocol Protocol Morphine Sulfate 6 mg 11/29/17 13:31 Morphine Oral Dana 2mg/Ml PO Q2H PRN Severe Pain Ondansetron HCl 4 mg 11/25/17 19:03 Zofran IVP Q6HR PRN Nausea And Vomiting Pantoprazole Sodium 40 mg 11/26/17 09:00 11/30/17 08:15 Protonix IVP 40 mg DAILY [facility] Administration Senna/Docusate Sodium 2 each 11/26/17 21:00 11/29/17 20:40 Senokot-S PO 2 each HS [facility] Administration Sodium Chloride 10 ml 11/25/17 21:00 11/30/17 08:15 Saline Flush IV 10 ml BID [facility] Administration 12/01/2017 Breathing improving, weaned off of BiPAP and down to 6 L high flow. Wheezing resolved. Chest x-ray reports improvement. Staff reports patient appeared to be choking on pills last night, speech therapy consulted. Receiving one unit of packed RBCs for hemoglobin of 6.7. Mediastinal chest tubes discontinued, left pleural chest tube remains. Maintained on Primacor. Telemetry atrial flutter. Review of systems: CONSTITUTIONAL: No fever, no malaise HEENT: No recent visual problems or hearing problems. Denied any sore throat. CARDIOVASCULAR: No chest pain, no palpitations, no syncope. PULMONARY: Improving shortness of breath, no cough, no hemoptysis. GASTROINTESTINAL: No diarrhea, no nausea, no vomiting, no abdominal pain. Normoactive bowel sounds. NEUROLOGICAL: No headaches, diffuse weakness, no numbness. HEMATOLOGICAL: Denies any bleeding or petechiae. GENITOURINARY: Denies any burning micturition, frequency, or urgency. ENDOCRINE: Denies any polyuria or polydipsia. PSYCHIATRIC: No anxiety, no depression Active Medications Hydrocodone Bitart/Acetaminophen ([place] 5-325) 1 each PO Q4HR PRN PRN Reason: MILD TO MODERATE Pain Last Admin: 12/01/17 22:44 Dose: 1 each Hydrocodone Bitart/Acetaminophen ([place] 5-325) 2 each PO Q4HR PRN PRN Reason: MODERATE TO SEVERE Pain Albuterol/Ipratropium (Duoneb 0.5 Mg-3 Mg/3 Ml Soln) 3 ml INHALATION RT-Q4H [facility] Last Admin: 12/02/17 15:06 Dose: 3 ml Albuterol/Ipratropium (Duoneb 0.5 Mg-3 Mg/3 Ml Soln) 3 ml INHALATION RT-Q2H PRN PRN Reason: Shortness Of Breath Or Wheezing Last Admin: 12/01/17 18:09 Dose: 3 ml Amiodarone HCl (Cordarone) 200 mg PO BID [facility] Last Admin: 12/02/17 08:10 Dose: 200 mg Aspirin (Aspirin) 81 mg PO DAILY [facility] Last Admin: 12/02/17 08:10 Dose: 81 mg Atorvastatin Calcium (Lipitor) 40 mg PO DAILY [facility] Last Admin: 12/02/17 08:10 Dose: 40 mg Benzocaine/Menthol (Cepacol Lozenge) 1 each MUCOUS MEM Q2H PRN PRN Reason: Sore Throat Bisacodyl (Dulcolax) 10 mg RECTAL DAILY PRN PRN Reason: Constipation Budesonide (Pulmicort) 1 mg INHALATION RT-BID [facility] Last Admin: 12/02/17 07:19 Dose: 1 mg Fondaparinux (Arixtra) 2.5 mg SQ DAILY [facility] Last Admin: 12/02/17 08:10 Dose: 2.5 mg Formoterol Fumarate (Perforomist) 20 mcg INHALATION RT-BID [facility] Last Admin: 12/02/17 07:36 Dose: 20 mcg Norepinephrine Bitartrate (Levophed-0.9% Nacl 16 Mg/250ml Pmx) 16 mg in 250 mls @ 0 mls/hr IV .Q0M [facility]; Titrate PRN Reason: Protocol Last Titration: 11/30/17 11:58 Dose: 0 mcg/min, 0 mls/hr Sodium Chloride (Saline 0.45%) 1,000 mls @ 10 mls/hr IV .Q24H [facility] Last Admin: 12/01/17 14:04 Dose: 10 mls/hr Milrinone Lactate/Dextrose 20 (mg/ IV Solution) 100 mls @ 6.58 mls/hr IV .[id number] [facility] PRN Reason: 0.2 MCG/KG/MIN Last Admin: 12/02/17 08:57 Dose: 0.2 mcg/kg/min, 6.58 mls/hr Insulin Aspart (Novolog) 0 unit SQ Q6HR [facility] PRN Reason: Protocol Last Admin: 12/02/17 12:53 Dose: Not Given Magnesium Hydroxide (Milk Of Magnesia) 2,400 mg PO BID PRN PRN Reason: Constipation Methylprednisolone Sodium Succinate (Solu-Medrol) 30 mg IV Q8HR [facility] Last Admin: 12/02/17 08:10 Dose: 30 mg Metoprolol Tartrate (Lopressor) 25 mg PO BID [facility] Last Admin: 12/02/17 08:59 Dose: 25 mg Miscellaneous Information (Magnesium Per Protocol) 1 each MISCELLANE DAILY PRN ; Protocol PRN Reason: Per Protocol Miscellaneous Information (Phosphorus Per Protocol) 1 each MISCELLANE DAILY PRN ; Protocol PRN Reason: Per Protocol Miscellaneous Information (Potassium Per Protocol) 1 each MISCELLANE DAILY PRN ; Protocol PRN Reason: Per Protocol Miscellaneous Information (Potassium Per Protocol) 1 each MISCELLANE DAILY PRN ; Protocol PRN Reason: Per Protocol Ondansetron HCl (Zofran) 4 mg IVP Q6HR PRN PRN Reason: Nausea And Vomiting Pantoprazole Sodium (Protonix) 40 mg IVP DAILY [facility] Last Admin: 12/02/17 08:10 Dose: 40 mg Senna/Docusate Sodium (Senokot-S) 2 each PO HS [facility] Last Admin: 12/01/17 21:55 Dose: 2 each Sodium Chloride (Saline Flush) 10 ml IV BID [facility] Last Admin: 12/02/17 12:51 Dose: 10 ml 12/02/17 Much more alert today. Oxygen weaned further down to 5 L nasal cannula, maintaining O2 sats in the high 90s. Pleural chest tube discontinued. Chest x- ray reporting probable right lower lobe atelectasis/effusion. Underwent modified barium swallow, with recommendations of regular diet, thin liquids, chin tuck, no straw, small bites/sepsis/sips; no impairment with exception of mild transient penetration with thin liquids which patient independently cleared. Yesterday receive 1 unit of packed RBCs with current hemoglobin 8. Weaning of Primacor in progress. 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 Review of systems: CONSTITUTIONAL: No fever, no malaise, no fatigue. HEENT: No recent visual problems or hearing problems. Denied any sore throat. CARDIOVASCULAR: No chest pain, no palpitations, no syncope. PULMONARY: Minimal shortness of breath, no cough, no hemoptysis. GASTROINTESTINAL: No diarrhea, no nausea, no vomiting, no abdominal pain. Normoactive bowel sounds. NEUROLOGICAL: No headaches, no weakness, no numbness. HEMATOLOGICAL: Denies any bleeding or petechiae. GENITOURINARY: Denies any burning micturition, frequency, or urgency. MUSCULOSKELETAL/RHEUMATOLOGICAL: Denies any joint pain, swelling, or any muscle pain. ENDOCRINE: Denies any polyuria or polydipsia. PSYCHIATRIC: No anxiety, no depression The rest of the 14 point review of systems is negative Active Medications Generic Name Dose Route Start Last Admin Trade Name Freq PRN Reason Stop Dose Admin Hydrocodone Bitart/Acetaminophen 1 each 12/01/17 12:20 12/01/17 22:44 [place] 5-325 PO 1 each Q4HR PRN Administration MILD TO MODERATE Pain Hydrocodone Bitart/Acetaminophen 2 each 12/01/17 12:20 [place] 5-325 PO Q4HR PRN MODERATE TO SEVERE Pain Albuterol/Ipratropium 3 ml 11/25/17 20:00 12/02/17 15:06 Duoneb 0.5 Mg-3 Mg/3 Ml Soln INHALATION 3 ml RT-Q4H [facility] Administration Albuterol/Ipratropium 3 ml 11/26/17 17:53 12/01/17 18:09 Duoneb 0.5 Mg-3 Mg/3 Ml Soln INHALATION 3 ml RT-Q2H PRN Administration Shortness Of Breath Or Wheezing Amiodarone HCl 200 mg 11/29/17 21:00 12/02/17 08:10 Cordarone PO 200 mg BID [facility] Administration Aspirin 81 mg 11/26/17 10:15 12/02/17 08:10 Aspirin PO 81 mg DAILY [facility] Administration Atorvastatin Calcium 40 mg 11/26/17 09:00 12/02/17 08:10 Lipitor PO 40 mg DAILY [facility] Administration Benzocaine/Menthol 1 each 11/25/17 19:03 Cepacol Lozenge MUCOUS MEM Q2H PRN Sore Throat Bisacodyl 10 mg 11/26/17 17:52 Dulcolax RECTAL DAILY PRN Constipation Budesonide 1 mg 12/01/17 20:00 12/02/17 07:19 Pulmicort INHALATION 1 mg RT-BID [facility] Administration Fondaparinux 2.5 mg 11/30/17 11:30 12/02/17 08:10 Arixtra SQ 2.5 mg DAILY [facility] Administration Formoterol Fumarate 20 mcg 12/01/17 20:00 12/02/17 07:36 Perforomist INHALATION 20 mcg RT-BID [facility] Administration Norepinephrine Bitartrate 16 mg in 250 mls @ 0 mls/hr 11/26/17 04:15 11:58 Levophed-0.9% Nacl 16 Mg/250ml Pmx IV 0 mcg/min .Q0M [facility] 0 mls/hr Protocol Titration Titrate Sodium Chloride 1,000 mls @ 10 mls/hr 11/26/17 10:15 12/02/17 15:41 Saline 0.45% IV Not Given .Q24H [facility] Milrinone Lactate/Dextrose 20 100 mls @ 6.58 mls/hr 11/29/17 15:00 12/02/17 08:57 mg/ IV Solution IV 0.2 mcg/kg/min .[id number] [facility] 6.58 mls/hr 0.2 MCG/KG/MIN Administration Insulin Aspart 0 unit 11/29/17 12:00 12/02/17 12:53 Novolog SQ Not Given Q6HR [facility] Protocol Magnesium Hydroxide 2,400 mg 11/26/17 17:53 Milk Of Magnesia PO BID PRN Constipation Methylprednisolone Sodium Succinate 30 mg 12/01/17 16:00 12/02/17 08:10 Solu-Medrol IV 30 mg Q8HR [facility] Administration Metoprolol Tartrate 25 mg 12/02/17 09:00 12/02/17 08:59 Lopressor PO 25 mg BID [facility] Administration Miscellaneous Information 1 each 11/25/17 19:03 Magnesium Per Protocol MISCELLANE DAILY PRN Per Protocol Protocol Miscellaneous Information 1 each 11/25/17 19:03 Phosphorus Per Protocol MISCELLANE DAILY PRN Per Protocol Protocol Miscellaneous Information 1 each 11/25/17 19:03 Potassium Per Protocol MISCELLANE DAILY PRN Per Protocol Protocol Miscellaneous Information 1 each 11/29/17 12:01 Potassium Per Protocol MISCELLANE DAILY PRN Per Protocol Protocol Ondansetron HCl 4 mg 11/25/17 19:03 Zofran IVP Q6HR PRN Nausea And Vomiting Pantoprazole Sodium 40 mg 11/26/17 09:00 12/02/17 08:10 Protonix IVP 40 mg DAILY [facility] Administration Senna/Docusate Sodium 2 each 11/26/17 21:00 12/01/17 21:55 Senokot-S PO 2 each HS [facility] Administration Sodium Chloride 10 ml 11/25/17 21:00 12/02/17 12:51 Saline Flush IV 10 ml BID [facility] Administration 12/03/17 maintained on nebulized bronchodilators, steroids,patient tachypneic, requiring BiPap throughout today off and on. Chest x-ray suggestive of fluid overload. Received additional Lasix. Maintained on oral amiodarone, remains in a-flutter. Overdrive atrial pacing attempted unsuccessfully. Digoxin 2 ordered. Pacer wires discontinued today. Stool at bedside with PT OT, remains extremely weak. Primacor weaned off yesterday. 2017 currently in atrial fibrillation with heart rates up into the 150s, scheduled for cardioversion tomorrow. INR 2.2. Patient currently wearing BiPAP ,has required on and off all day. Chest ultrasound reporting bilateral pleural effusions, larger on the right. Thoracentesis on hold, awaiting cardioversion.Chest x-ray reporting prominent interstitium and central vascularity, increased bibasilar density. Attempting diuresing with Lasix and Zaroxolyn. Review systems unable to obtain as patient currently on BiPAP. Active Medications Hydrocodone Bitart/Acetaminophen ([place] 5-325) 1 each PO Q4HR PRN PRN Reason: MILD TO MODERATE Pain Last Admin: 12/07/17 10:48 Dose: 1 each Hydrocodone Bitart/Acetaminophen ([place] 5-325) 2 each PO Q4HR PRN PRN Reason: MODERATE TO SEVERE Pain Last Admin: 12/07/17 16:39 Dose: 2 each Albuterol/Ipratropium (Duoneb 0.5 Mg-3 Mg/3 Ml Soln) 3 ml INHALATION RT-Q2H PRN PRN Reason: Shortness Of Breath Or Wheezing Last Admin: 12/01/17 18:09 Dose: 3 ml Albuterol/Ipratropium (Duoneb 0.5 Mg-3 Mg/3 Ml Soln) 3 ml INHALATION RT-QID [facility] Last Admin: 12/07/17 16:43 Dose: 3 ml Amiodarone HCl (Cordarone) 200 mg PO BID [facility] Aspirin (Aspirin) 81 mg PO DAILY [facility] Last Admin: 12/07/17 08:53 Dose: 81 mg Atorvastatin Calcium (Lipitor) 40 mg PO DAILY [facility] Last Admin: 12/07/17 08:53 Dose: 40 mg Benzocaine/Menthol (Cepacol Lozenge) 1 each MUCOUS MEM Q2H PRN PRN Reason: Sore Throat Bisacodyl (Dulcolax) 10 mg RECTAL DAILY PRN PRN Reason: Constipation Budesonide (Pulmicort) 1 mg INHALATION RT-BID [facility] Last Admin: 12/07/17 08:36 Dose: 1 mg Escitalopram Oxalate (Lexapro) 10 mg PO HS [facility] Furosemide (Lasix) 40 mg IV Q12HR [facility] Last Admin: 12/07/17 08:33 Dose: 40 mg Piperacillin/Tazobactam/ (Dextrose 3.375 gm/ IV Solution) 50 mls @ 12.5 mls/hr IVPB Q8HR [facility] Last Admin: 12/07/17 16:39 Dose: 12.5 mls/hr Sodium Chloride (Saline 0.9%) 1,000 mls @ 20 mls/hr IV .Q24H [facility] Last Admin: 12/07/17 13:00 Dose: 20 mls/hr Lactated Ringer's (Lactated Ringers) 1,000 mls @ 20 mls/hr IV .Q24H [facility] Last Admin: 12/06/17 20:45 Dose: 20 mls/hr Insulin Aspart (Novolog) 0 unit SQ ACHS [facility] PRN Reason: Protocol Last Admin: 12/07/17 13:01 Dose: 2 unit Magnesium Hydroxide (Milk Of Magnesia) 2,400 mg PO BID PRN PRN Reason: Constipation Methylprednisolone Sodium Succinate (Solu-Medrol) 30 mg IV Q8HR [facility] Last Admin: 12/07/17 16:39 Dose: 30 mg Metolazone (Zaroxolyn) 5 mg PO DAILY [facility] Last Admin: 12/07/17 08:53 Dose: 5 mg Metoprolol Tartrate (Lopressor) 50 mg PO BID [facility] Last Admin: 12/07/17 08:53 Dose: 50 mg Miscellaneous Information (Magnesium Per Protocol) 1 each MISCELLANE DAILY PRN ; Protocol PRN Reason: Per Protocol Miscellaneous Information (Phosphorus Per Protocol) 1 each MISCELLANE DAILY PRN ; Protocol PRN Reason: Per Protocol Miscellaneous Information (Potassium Per Protocol) 1 each MISCELLANE DAILY PRN ; Protocol PRN Reason: Per Protocol Ondansetron HCl (Zofran) 4 mg IVP Q6HR PRN PRN Reason: Nausea And Vomiting Pantoprazole Sodium (Protonix) 40 mg PO AC-BRKFST [facility] Last Admin: 12/07/17 08:53 Dose: 40 mg Senna/Docusate Sodium (Senokot-S) 2 each PO HS [facility] Last Admin: 12/06/17 20:29 Dose: 2 each Sodium Chloride (Saline Flush) 10 ml IV BID [facility] Last Admin: 12/07/17 10:48 Dose: 10 ml 12/07/2017 Underwent successful cardioversion this morning,360J X1, remains in sinus rhythm. Currently wearing BiPAP. Nonproductive cough. Diuresing well on Lasix and Zaroxolyn with 24-hour I&O reflecting a negative fluid balance. Chest x-ray reporting stable bilateral areas of infiltrate and pleural effusions , possible CHF, possible pneumonia. INR 3.8, afebrile, WBC 17. Maintained on Zosyn. Sternal wound drainage, cultures sent. 12/08/2017 Cardioverted yesterday, remains in sinus rhythm .continues requiring BiPAP for majority of morning. Echo reporting-limited study for assessment of pericardial effusion, small generalized pericardial effusion, low normal LV function, EF 50-55%. Chest CT reporting sternal dehiscence, moderate to large pericardial effusion, possible mass effect onto the left ventricle, no significant right atrial dilatation to clearly indicate tamponade, moderate left pleural effusion with adjacent complete left lower lobar and inferior lingular collapse, small right pleural effusion, right basilar subsegmental atelectasis. Chest x-ray noted. Blood sugars controlled. INR 4.8, received vitamin K this morning. Diuresing well on Lasix IV push, Zaroxolyn. 24-hour I& O reflecting a negative fluid balance, decreased weight. Midsternal incision open, draining large amount of serosanguineous drainage. Currently maintained on Zosyn. Wound cultures pending. Afebrile. Review systems unable to obtain as patient currently on BiPAP. Active Medications Generic Name Dose Route Start Last Admin Trade Name Freq PRN Reason Stop Dose Admin Hydrocodone Bitart/Acetaminophen 1 each 12/01/17 12:20 12/08/17 06:26 [place] 5-325 PO 1 each Q4HR PRN Administration MILD TO MODERATE Pain Hydrocodone Bitart/Acetaminophen 2 each 12/01/17 12:20 12/08/17 18:41 [place] 5-325 PO 2 each Q4HR PRN Administration MODERATE TO SEVERE Pain Acetazolamide Sodium 250 mg 12/08/17 09:15 12/08/17 11:16 Diamox IV 12/08/17 21:01 250 mg Q12HR [facility] Administration Albuterol/Ipratropium 3 ml 11/26/17 17:53 12/08/17 05:16 Duoneb 0.5 Mg-3 Mg/3 Ml Soln INHALATION 3 ml RT-Q2H PRN Administration Shortness Of Breath Or Wheezing Albuterol/Ipratropium 3 ml 12/03/17 08:00 12/08/17 15:38 Duoneb 0.5 Mg-3 Mg/3 Ml Soln INHALATION 3 ml RT-QID [facility] Administration Amiodarone HCl 200 mg 12/08/17 09:00 12/08/17 08:24 Cordarone PO 200 mg BID [facility] Administration Aspirin 81 mg 11/26/17 10:15 12/08/17 08:24 Aspirin PO 81 mg DAILY [facility] Administration Atorvastatin Calcium 40 mg 11/26/17 09:00 12/08/17 08:25 Lipitor PO 40 mg DAILY [facility] Administration Benzocaine/Menthol 1 each 11/25/17 19:03 Cepacol Lozenge MUCOUS MEM Q2H PRN Sore Throat Bisacodyl 10 mg 11/26/17 17:52 Dulcolax RECTAL DAILY PRN Constipation Budesonide 1 mg 12/01/17 20:00 12/08/17 09:26 Pulmicort INHALATION 1 mg RT-BID [facility] Administration Escitalopram Oxalate 10 mg 12/07/17 21:00 12/07/17 20:10 Lexapro PO 10 mg HS [facility] Administration Piperacillin/Tazobactam/ 50 mls @ 12.5 mls/hr 12/04/17 16:00 12/08/17 16:11 Dextrose 3.375 gm/ IV Solution IVPB 12.5 mls/hr Q8HR [facility] Administration Sodium Chloride 1,000 mls @ 20 mls/hr 12/06/17 10:45 12/08/17 13:47 Saline 0.9% IV Not Given .Q24H [facility] Insulin Aspart 0 unit 12/02/17 21:00 12/08/17 17:46 Novolog SQ 1 unit ACHS [facility] Administration Protocol Magnesium Hydroxide 2,400 mg 11/26/17 17:53 Milk Of Magnesia PO BID PRN Constipation Metoprolol Tartrate 50 mg 12/06/17 21:00 12/08/17 08:24 Lopressor PO 50 mg BID [facility] Administration Miscellaneous Information 1 each 11/25/17 19:03 Magnesium Per Protocol MISCELLANE DAILY PRN Per Protocol Protocol Miscellaneous Information 1 each 11/25/17 19:03 Phosphorus Per Protocol MISCELLANE DAILY PRN Per Protocol Protocol Miscellaneous Information 1 each 11/25/17 19:03 Potassium Per Protocol MISCELLANE DAILY PRN Per Protocol Protocol Ondansetron HCl 4 mg 11/25/17 19:03 Zofran IVP Q6HR PRN Nausea And Vomiting Pantoprazole Sodium 40 mg 12/05/17 07:30 12/08/17 08:25 Protonix PO 40 mg AC-BRKFST [facility] Administration Senna/Docusate Sodium 2 each 11/26/17 21:00 12/07/17 20:16 Senokot-S PO 2 each HS CARLEE Administration Sodium Chloride 10 ml 11/25/17 21:00 12/08/17 11:16 Saline Flush IV 10 ml BID CARLEE Administration 12/09/17 Remains in sinus rhythm. mostly BiPAP dependent. Incentive spirometer up to 700 -750. Chest x-ray reporting improving moderate pleural effusion, cardiomegaly. Sternal wound culture positive for gram-negative bacilli. Maintained on Zosyn. Diet intake fair. Blood sugars controlled. Review systems unable to be performed as patient on BiPAP Active Medications Hydrocodone Bitart/Acetaminophen ([place] 5-325) 1 each PO Q4HR PRN PRN Reason: MILD TO MODERATE Pain Last Admin: 12/09/17 10:03 Dose: 1 each Hydrocodone Bitart/Acetaminophen ([place] 5-325) 2 each PO Q4HR PRN PRN Reason: MODERATE TO SEVERE Pain Last Admin: 12/09/17 14:51 Dose: 2 each Albuterol/Ipratropium (Duoneb 0.5 Mg-3 Mg/3 Ml Soln) 3 ml INHALATION RT-Q2H PRN PRN Reason: Shortness Of Breath Or Wheezing Last Admin: 12/08/17 05:16 Dose: 3 ml Albuterol/Ipratropium (Duoneb 0.5 Mg-3 Mg/3 Ml Soln) 3 ml INHALATION RT-QID [facility] Last Admin: 12/09/17 15:42 Dose: 3 ml Amiodarone HCl (Cordarone) 200 mg PO BID [facility] Last Admin: 12/09/17 08:12 Dose: 200 mg Aspirin (Aspirin) 81 mg PO DAILY [facility] Last Admin: 12/09/17 08:13 Dose: 81 mg Atorvastatin Calcium (Lipitor) 40 mg PO DAILY [facility] Last Admin: 12/09/17 08:13 Dose: 40 mg Benzocaine/Menthol (Cepacol Lozenge) 1 each MUCOUS MEM Q2H PRN PRN Reason: Sore Throat Bisacodyl (Dulcolax) 10 mg RECTAL DAILY PRN PRN Reason: Constipation Budesonide (Pulmicort) 1 mg INHALATION RT-BID [facility] Last Admin: 12/09/17 07:45 Dose: 1 mg Escitalopram Oxalate (Lexapro) 10 mg PO HS [facility] Last Admin: 12/08/17 20:33 Dose: 10 mg Piperacillin/Tazobactam/ (Dextrose 3.375 gm/ IV Solution) 50 mls @ 12.5 mls/hr IVPB Q8HR [facility] Last Admin: 12/09/17 08:16 Dose: 12.5 mls/hr Sodium Chloride (Saline 0.9%) 1,000 mls @ 20 mls/hr IV .Q24H [facility] Last Admin: 12/09/17 08:17 Dose: 20 mls/hr Insulin Aspart (Novolog) 0 unit SQ ACHS [facility] PRN Reason: Protocol Last Admin: 12/09/17 12:23 Dose: Not Given Magnesium Hydroxide (Milk Of Magnesia) 2,400 mg PO BID PRN PRN Reason: Constipation Metoprolol Tartrate (Lopressor) 50 mg PO BID [facility] Last Admin: 12/09/17 08:13 Dose: 50 mg Miscellaneous Information (Magnesium Per Protocol) 1 each MISCELLANE DAILY PRN ; Protocol PRN Reason: Per Protocol Miscellaneous Information (Phosphorus Per Protocol) 1 each MISCELLANE DAILY PRN ; Protocol PRN Reason: Per Protocol Miscellaneous Information (Potassium Per Protocol) 1 each MISCELLANE DAILY PRN ; Protocol PRN Reason: Per Protocol Ondansetron HCl (Zofran) 4 mg IVP Q6HR PRN PRN Reason: Nausea And Vomiting Pantoprazole Sodium (Protonix) 40 mg PO AC-BRKFST [facility] Last Admin: 12/09/17 08:11 Dose: 40 mg Senna/Docusate Sodium (Senokot-S) 2 each PO HS [facility] Last Admin: 12/08/17 20:37 Dose: 2 each Sodium Chloride (Saline Flush) 10 ml IV BID [facility] Last Admin: 12/09/17 08:13 Dose: 10 ml 12/13/17 maintained on Merrem and vancomycin. BiPAP dependent. Worsening chest x-ray, chest CT reporting near complete collapse of left lung, enlarging moderate to large pericardial effusion. Echo pending. Multiple episodes of diarrhea. Atrial flutter with RVR, Review systems unable to be performed as patient on BiPAP Active Medications Generic Name Dose Route Start Last Admin Trade Name Freq PRN Reason Stop Dose Admin Hydrocodone Bitart/Acetaminophen 1 each 12/01/17 12:20 12/13/17 08:08 [place] 5-325 PO 1 each Q4HR PRN Administration MILD TO MODERATE Pain Hydrocodone Bitart/Acetaminophen 2 each 12/01/17 12:20 12/13/17 15:08 [place] 5-325 PO 2 each Q4HR PRN Administration MODERATE TO SEVERE Pain Albuterol/Ipratropium 3 ml 11/26/17 17:53 12/08/17 05:16 Duoneb 0.5 Mg-3 Mg/3 Ml Soln INHALATION 3 ml RT-Q2H PRN Administration Shortness Of Breath Or Wheezing Albuterol/Ipratropium 3 ml 12/03/17 08:00 12/13/17 16:02 Duoneb 0.5 Mg-3 Mg/3 Ml Soln INHALATION Not Given RT-QID CARLEE Amiodarone HCl 200 mg 12/11/17 20:00 12/13/17 09:12 Cordarone PO 200 mg BID@0800,2000 CARLEE Administration Aspirin 81 mg 11/26/17 10:15 12/13/17 09:13 Aspirin PO 81 mg DAILY CARLEE Administration Atorvastatin Calcium 40 mg 11/26/17 09:00 12/13/17 09:13 Lipitor PO 40 mg DAILY CARLEE Administration Benzocaine/Menthol 1 each 11/25/17 19:03 Cepacol Lozenge MUCOUS MEM Q2H PRN Sore Throat Bisacodyl 10 mg 11/26/17 17:52 12/12/17 17:45 Dulcolax RECTAL 10 mg DAILY PRN Administration Constipation Budesonide 1 mg 12/01/17 20:00 12/13/17 07:46 Pulmicort INHALATION 1 mg RT-BID CARLEE Administration Escitalopram Oxalate 10 mg 12/07/17 21:00 12/12/17 20:16 Lexapro PO 10 mg HS CARLEE Administration Heparin Sodium (Porcine) 5,000 unit 12/10/17 16:00 12/13/17 09:14 Heparin SQ 5,000 unit Q8HR CARLEE Administration Sodium Chloride 1,000 mls @ 20 mls/hr 12/06/17 10:45 12/13/17 09:49 Saline 0.9% IV 20 mls/hr .Q24H CARLEE Administration Meropenem 1 gm/ Sodium 100 mls @ 100 mls/hr 12/09/17 22:00 12/13/17 09:46 Chloride IVPB 100 mls/hr Q8HR CARLEE Administration Vancomycin HCl 1,750 mg/ 250 mls @ 125 mls/hr 12/13/17 14:00 12/13/17 14:15 Sodium Chloride IVPB 125 mls/hr Q12HR@0000,1200 CARLEE Administration Insulin Aspart 0 unit 12/02/17 21:00 12/13/17 12:34 Novolog SQ Not Given ACHS CARLEE Protocol Lactobacillus Acidoph/Bulgaricus 1 each 12/13/17 16:00 Lactinex PO TID CARLEE Magnesium Hydroxide 2,400 mg 11/26/17 17:53 Milk Of Magnesia PO BID PRN Constipation Metoprolol Tartrate 50 mg 12/11/17 22:00 12/13/17 09:13 Lopressor PO 50 mg BID@1000,2200 CARLEE Administration Miscellaneous Information 1 each 11/25/17 19:03 Magnesium Per Protocol MISCELLANE DAILY PRN Per Protocol Protocol Miscellaneous Information 1 each 11/25/17 19:03 Phosphorus Per Protocol MISCELLANE DAILY PRN Per Protocol Protocol Miscellaneous Information 1 each 11/25/17 19:03 Potassium Per Protocol MISCELLANE DAILY PRN Per Protocol Protocol Ondansetron HCl 4 mg 11/25/17 19:03 Zofran IVP Q6HR PRN Nausea And Vomiting Pantoprazole Sodium 40 mg 12/05/17 07:30 12/13/17 09:13 Protonix PO 40 mg AC-BRKFST CARLEE Administration Senna/Docusate Sodium 2 each 11/26/17 21:00 12/12/17 20:16 Senokot-S PO 2 each HS CARLEE Administration Sodium Chloride 10 ml 11/25/17 21:00 12/13/17 09:49 Saline Flush IV 10 ml BID CARLEE Administration 12/14/17 maintained on Merrem and vancomycin per infectious disease .remains BiPAP dependent. Chest x-ray reporting persistent significant left lung collapse with minimal improvement. Scheduled for bronchoscopy this afternoon. INR 2.1, receiving FFP. No diarrhea today. Telemetry atrial fibrillation/ flutter, heart rate 110s to 120s. Objective - Vital Signs Vital signs: Vital Signs Temp 99.0 F 12/14/17 13:16 Pulse 144 H 12/14/17 13:16 Resp 16 12/14/17 13:16 BP 111/70 12/14/17 13:16 Pulse Ox 100 12/14/17 13:00 Intake & Output 12/13/17 12/14/17 12/14/17 18:59 06:59 18:59 Intake Total 1032 240 822 Output Total 2155 540 230 Balance -1123 -300 592 Weight 101.6 kg 100.6 kg 100.6 kg Intake: IV 738 240 531 FFP 298 291 Meropenem 1 gm In Sodium 200 100 Chloride 0.9% 100 ml @ 100 mls/hr IVPB Q8HR [facility] Rx#:[id number] Sodium Chloride 0.9% 1, 240 240 140 000 ml @ 20 mls/hr IV . Q24H [facility] Rx#:[id number] Blood Product 294 291 Ffp 24 Cp2d Unit 0 [id number] Ffp 24 Cpd Unit 291 [id number] Ffp 24 Cpd Unit 294 [id number] Output: Chest Tube Drainage 80 0 Pleural Catheter Left 80 0 Drainage 1525 225 25 Medial Chest Incision - 1525 225 25 Woundvac Urine 550 315 205 Other: Voiding Method Bedpan Indwelling Catheter Indwelling Catheter # Bowel Movements 1 ABP, PAP, CO, CI - Last Documented Arterial Blood Pressure 110/60 Pulmonary Artery Pressure 38/33 Cardiac Output 5.8 Cardiac Index 2.9 - Exam PHYSICAL EXAM: VITAL SIGNS: As above GENERAL: Sitting up in bed, respiratory effort increased, wearing BiPAP HEENT: Conjunctivae normal. eyes normal. NECK: No JVD. No thyroid enlargement. No LNs CARDIOVASCULAR: S1, S2 muffled. Irregular, tachycardia ,no murmur. RESPIRATION: Breath sounds diminished in the bases. Scattered rhonchi. Sternal wound with wound vac present with small amount of brownish reddish drainage ABDOMEN: Soft . No guarding. no masses palpable.Bowel sounds heard. Extremities: Positive edema PSYCHIATRY:/NERVOUS SYSTEM: Alert and oriented 3, moves all 4 extremities no focal deficits, Skin: Midsternal incision open,large amount of serosanguineous drainage,with packing, right medial buttock & right buttock skin tears, type II - III, Right lower arm Skin tear,type II, Lower back shearing injury with sloughing, excoriation, erythema. Microbiology 12/10/17 10:40 Chest Gram Stain - Final 12/10/17 10:40 Chest Wound Culture - Final Serratia marcescens 12/10/17 10:45 Chest Gram Stain - Final 12/10/17 10:45 Chest Tissue Culture - Final Serratia marcescens 12/10/17 10:50 Chest Gram Stain - Final 12/10/17 10:50 Chest Tissue Culture - Final Serratia marcescens 12/10/17 10:50 Chest Anaerobic Culture - Preliminary 12/10/17 10:40 Chest Anaerobic Culture - Preliminary 12/10/17 10:45 Chest Anaerobic Culture - Preliminary 12/10/17 10:50 Chest Acid Fast Bacilli Smear - Final 12/10/17 10:50 Chest Acid Fast Bacilli Culture - Preliminary 12/10/17 10:45 Chest Acid Fast Bacilli Smear - Final 12/10/17 10:45 Chest Acid Fast Bacilli Culture - Preliminary 12/10/17 10:50 Chest Fungal Culture - Preliminary 12/10/17 10:40 Chest Fungal Culture - Preliminary 12/10/17 10:45 Chest Fungal Culture - Preliminary 12/07/17 15:40 Chest Gram Stain - Final 12/07/17 15:40 Chest Wound Culture - Final Serratia marcescens 12/04/17 10:00 Urine,Voided Urine Culture - Final Escherichia coli Serratia marcescens 11/26/17 04:00 Sputum Gram Stain - Final 11/26/17 04:00 Sputum Sputum Culture - Final - Labs CBC & Chem 7: 12/14/17 04:34 12/14/17 04:34 Labs: Abnormal Lab Results - Last 24 Hours (Table) 12/13/17 12/14/17 12/14/17 Range/Units 20:25 04:34 04:34 WBC 17.1 H (3.8-10.6) k/uL Hgb 10.2 L (11.4-16.0) gm/dL MCHC 29.3 L (31.0-37.0) g/dL RDW 19.5 H (11.5-15.5) % Neutrophils # 15.7 H (1.3-7.7) k/uL Lymphocytes # 0.6 L (1.0-4.8) k/uL PT 19.3 H (9.0-12.0) sec INR 2.1 H (<1.2) Carbon Dioxide (22-30) mmol/L BUN (7-17) mg/dL Glucose (74-99) mg/dL POC Glucose (mg/dL) 134 H (75-99) mg/dL Magnesium (1.6-2.3) mg/dL AST (14-36) U/L Total Protein (6.3-8.2) g/dL Albumin (3.5-5.0) g/dL 12/14/17 12/14/17 12/14/17 Range/Units 04:34 04:34 06:41 WBC (3.8-10.6) k/uL Hgb (11.4-16.0) gm/dL MCHC (31.0-37.0) g/dL RDW (11.5-15.5) % Neutrophils # (1.3-7.7) k/uL Lymphocytes # (1.0-4.8) k/uL PT (9.0-12.0) sec INR (<1.2) Carbon Dioxide 36 H (22-30) mmol/L BUN 44 H (7-17) mg/dL Glucose 109 H (74-99) mg/dL POC Glucose (mg/dL) 100 H (75-99) mg/dL Magnesium 2.6 H (1.6-2.3) mg/dL AST 57 H (14-36) U/L Total Protein 5.7 L (6.3-8.2) g/dL Albumin 2.5 L (3.5-5.0) g/dL Microbiology - Last 24 Hours (Table) 12/10/17 10:40 Anaerobic Culture - Final Chest 12/10/17 10:45 Anaerobic Culture - Final Chest 12/13/17 05:27 Urine Culture - Final Urine,Catheterized 12/10/17 10:40 Gram Stain - Final Chest Wound Culture - Final Serratia marcescens 12/10/17 10:45 Gram Stain - Final Chest Tissue Culture - Final Serratia marcescens Assessment and Plan Assessment: 1. Status post CABG with mitral valve replacement 2. Acute blood loss anemia with massive blood transfusions postoperatively, in a patient with history of GI bleed 3. Hypertension 4. Left subclavian stenosis 5. Proximal atrial fibrillation/flutter status post cardioversion with recurrence of atrial fibrillation 6. Postoperative Hypoxic respiratory failure, status post vent dependent, currently requiring intermittent use of BiPAP 7. Obesity, BMI 41.6 8. S/P PICC line placement 9. 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 Acute UTI Serratia marcescens, E. coli 11. Bilateral pleural effusions, improved with diuretics. Possible aspiration pneumonia, possible fluid overload. 12. Sternal wound debridement, culture growing Serratia marcescens, placement of wound VAC. 13. Pressure ulceration of back and buttocks, stage III 14. Diarrhea, ruling out C. difficile colitis. Plan: Continue on current medication regime , amiodarone, metoprolol , monitoring and symptomatic treatment. Bronchoscopy pending, currently receiving FFP for INR 2.1. Maintain IV antibiotics, wound care as per infectious disease. Continue nebulized bronchodilators, IV steroids. GI, DVT prophylaxis in place. Further recommendations to follow. The impression and plan of care has been dictated as directed. : I performed a history and examination of this patient, discussed the same with the dictator. I agree with the dictator's note ,documented as a scribe. Any additional findings or plans will be noted.
[2017-12-14] MEDS ORDERED: PROPOFOL 100 ML IV ONE (16:02)
[2017-12-14] MEDS ORDERED: PROPOFOL 10 MG/ML 20 ML VIAL IV ONE (16:24)
[2017-12-14] MEDS ORDERED: SUCCINYLCHOLINE CHLORIDE 100 MG/5 ML SYR IV ONE (16:24)
[2017-12-14] MEDS ORDERED: NOREPINEPHRIN 4 MG-0.9% NS PMX 4 MG/250 ML ML IV ONE (16:46)
--- NOTE | 2017-12-14 17:08 | XR ---
EXAMINATION TYPE: XR chest 1V portable DATE OF EXAM: 12/14/2017 COMPARISON: Today HISTORY: Check tube placement TECHNIQUE: Single frontal view of the chest is obtained. FINDINGS: Endotracheal tube is low and has tip less than 1 cm from the osvaldo. There is pulmonary in terstitial edema. There is a left chest tube. There is apparent stent in the left subclavian artery. There is a cardiac valve prosthesis. IMPRESSION: Pulmonary edema. Endotracheal tube is low and should be pulled back at least 3 cm. Heart and lungs are unchanged compared to exam earlier today. Cardiomegaly. No pneumothorax.
[2017-12-14 17:48] LABS: ABG Base Excess 10.2 mmol/L; ABG HCO3 33 mmol/L (21-25); ABG PCO2 39 mmHg (35-45); ABG PH 7.53 (7.35-7.45); ABG PO2 342 mmHg (83-108); ABG TCO2 34 mmol/L (19-24)
[2017-12-14] MEDS: ASPIRIN 81 MG PO SCH (18:42)
[2017-12-14] MEDS ORDERED: NOREPINEPHRIN 16 MG-0.9%NS PMX 16 MG/250 ML ML IV SCH (19:00)
[2017-12-14] MEDS: PROPOFOL 1,000 MG in EMPTY BAG 1 BAG IV SCH ×2 (19:30→23:30)
[2017-12-14 20:05] LABS: Glucose,Whole Blood 96 mg/dL (75-99)
[2017-12-14] MEDS: ESCITALOPRAM 10 MG TAB PO SCH (20:33)
[2017-12-14] MEDS: SENNOSIDES-DOCUSATE SODIUM 1 EACH TAB PO SCH (20:34)
[2017-12-14] MEDS: CHLORHEXIDINE GLUCONATE 15 ML CUP MUCOUS MEM SCH (20:34)
--- NOTE | 2017-12-14 20:45 | XR ---
EXAMINATION TYPE: XR chest 1V portable DATE OF EXAM: 12/14/2017 COMPARISON: Today HISTORY: Check tube placement TECHNIQUE: Single frontal view of the chest is obtained. FINDINGS: Endotracheal tube is 2 cm from the osvaldo in improved position. There is pulmonary vascula r congestion. There is a nasogastric tube that has tip well into the stomach. There is left-sided dian st tube. There is no sign of a pneumothorax. Thoracic aorta is atheromatous. IMPRESSION: Endotracheal tube and nasogastric tube appear in good position. There is evidence of con gestive heart failure. No pneumothorax.
[2017-12-14] MEDS ORDERED: HEPARIN SODIUM,PORCINE 5,000 UNIT/ML 1 ML VIAL IV ONE (22:15)
[2017-12-14] MEDS ORDERED: HEPARIN SODIUM,PORCINE 5,000 UNIT/ML 1 ML VIAL IV PRN (22:15)
[2017-12-14] MEDS ORDERED: HEPARIN SOD,PORK IN 0.45% NACL 25,000 UNIT in 0.45% NACL 1 500ML.BAG IV SCH (22:30)
[2017-12-15] MEDS: HYDROcodone/APAP 5-325MG 1 EACH TAB PO PRN (01:58)
[2017-12-15] MEDS ORDERED: DEXTROSE 5% IN WATER 100 ML with AMIODARONE 150 MG IV ONE (02:38)
[2017-12-15] MEDS ORDERED: AMIODARONE 450 MG in DEXTROSE 5% IN WATER 250 ML IV SCH ×2 (02:45)
[2017-12-15] MEDS: PROPOFOL 1,000 MG in EMPTY BAG 1 BAG IV SCH ×4 (03:47→21:00)
[2017-12-15 05:01] LABS: Anisocytosis Slight; Basophils % (A) 0 %; Eosinophils # (A) 0.2 k/uL (0-0.7); Eosinophils % (A) 1 %; Hypochromasia Marked; Lymphocytes # (A) 1.2 k/uL (1.0-4.8); Lymphocytes % (A) 5 %; MCH 27.5 pg (25.0-35.0); MCHC 30.6 g/dL (31.0-37.0); MCV 89.8 fL (80.0-100.0); Mean Platelet Volume 7.1; Monocytes # (A) 0.6 k/uL (0-1.0); Monocytes % (A) 3 %; Neutrophils # (A) 21.3 k/uL (1.3-7.7); Neutrophils % (A) 90 %; Platelet Count 315 k/uL (150-450); Poikilocytosis Moderate; RBC 2.79 m/uL (3.80-5.40); RDW 19.8 % (11.5-15.5); WBC 23.6 k/uL (3.8-10.6)
[2017-12-15 05:08] LABS: HGB 7.6 gm/dL (11.4-16.0)
[2017-12-15 05:15] LABS: Prothrombin Time 18.1 sec (9.0-12.0)
[2017-12-15 05:37] LABS: Partial Thromboplastin Time 115.4 sec (22.0-30.0)
[2017-12-15 05:50] LABS: ALT 40 U/L (9-52); AST 52 U/L (14-36); Albumin 2.4 g/dL (3.5-5.0); Alkaline Phosphatase 98 U/L (38-126); Anion Gap 7 mmol/L; Blood Urea Nitrogen 41 mg/dL (7-17); Calcium 8.1 mg/dL (8.4-10.2); Carbon Dioxide 33 mmol/L (22-30); Chloride 104 mmol/L (98-107); Glucose 104 mg/dL (74-99); Potassium 3.7 mmol/L (3.5-5.1); Sodium 144 mmol/L (137-145); Total Bilirubin 0.7 mg/dL (0.2-1.3); Total Protein 5.3 g/dL (6.3-8.2)
[2017-12-15 06:01] LABS: Glucose,Whole Blood 108 mg/dL (75-99)
[2017-12-15] MEDS: INSULIN ASPART 100 UNIT/ML 1 ML 10 ML VIAL SQ SCH ×3 (06:41→18:42)
[2017-12-15] MEDS ORDERED: POTASSIUM CHLORIDE 10 MEQ in SODIUM CHLORIDE 0.9% 100 ML IVPB SCH (07:00)
[2017-12-15 07:17] LABS: Magnesium 2.4 mg/dL (1.6-2.3); Phosphorus 2.3 mg/dL (2.5-4.5)
[2017-12-15 08:18] LABS: ABG Base Excess 10.1 mmol/L; ABG HCO3 33 mmol/L (21-25); ABG Oxygen Saturation 99.4 % (94-97); ABG PCO2 43 mmHg (35-45); ABG PO2 123 mmHg (83-108); ABG TCO2 35 mmol/L (19-24)
--- NOTE | 2017-12-15 08:27 | XR ---
EXAMINATION TYPE: XR chest 1V portable DATE OF EXAM: 12/15/2017 COMPARISON: 12/14/2017 HISTORY: Postsurgical TECHNIQUE: Single frontal view of the chest is obtained. FINDINGS: Endotracheal tube is 2 cm from the osvaldo in improved position. There is pulmonary vascula r congestion. There is a nasogastric tube that has tip well into the stomach. There is left-sided dian st tube. There is no pneumothorax. Thoracic aorta is atheromatous. IMPRESSION: 1. Stable bilateral consolidation and pleural effusion greater on the left. Correlate for venous shaw estion and CHF.
[2017-12-15] MEDS ORDERED: Phosphorus Replacement Protoco 1 EACH MISC MISCELLANE PRN (08:28)
[2017-12-15] MEDS: METOPROLOL TARTRATE 50 MG TAB PO SCH ×2 (08:56→21:55)
[2017-12-15] MEDS: MEROPENEM 1 GM in SODIUM CHLORIDE 0.9% 100 ML IVPB SCH ×2 (08:56→15:42)
[2017-12-15] MEDS: LACTOBACILLUS ACIDOPH & BULGAR 1 EACH PACKET PO SCH ×3 (08:56→21:55)
[2017-12-15] MEDS: ATORVASTATIN 40 MG TAB PO SCH (08:56)
[2017-12-15] MEDS: PANTOPRAZOLE 40 MG TABLET PO SCH (08:56)
[2017-12-15] MEDS: CHLORHEXIDINE GLUCONATE 15 ML CUP MUCOUS MEM SCH ×2 (08:56→20:15)
[2017-12-15] MEDS: ASPIRIN 81 MG PO SCH (08:56)
[2017-12-15] MEDS: AMIODARONE 200 MG TAB PO SCH ×2 (09:09→20:15)
[2017-12-15] MEDS: BUDESONIDE 1 MG/2 ML NEBU INHALATION SCH ×2 (09:19→19:26)
[2017-12-15] MEDS: IPRATROPIUM-ALBUTEROL 3 ML NEB INHALATION SCH ×4 (09:19→19:26)
[2017-12-15] MEDS ORDERED: [UNRECOGNIZED DRUG - REMARK] PO PRN (09:19)
[2017-12-15] MEDS: POTASSIUM PHOSPHATE 10 MMOL in SODIUM CHLORIDE 0.9% 100 ML IV SCH ×2 (09:32→11:19)
[2017-12-15] MEDS ORDERED: CISATRACURIUM 2 MG/ML 5 ML VIAL IV ONE (10:25)
[2017-12-15] MEDS ORDERED: MORPHINE SULFATE 4 MG/ML SYRINGE ONE (10:25)
[2017-12-15] MEDS ORDERED: IV FLUID CONTINUATION 900 ML IV ONE (10:31)
[2017-12-15] MEDS ORDERED: VANCOMYCIN TROUGH DUE 1 EACH MISC MISCELLANE ONE (11:00)
[2017-12-15] MEDS: SODIUM CHLORIDE 0.9% 1,000 ML IV SCH (11:19)
[2017-12-15] MEDS: VANCOMYCIN 1,750 MG in SODIUM CHLORIDE 0.9% 250 ML IVPB SCH (12:04)
[2017-12-15 12:12] LABS: Glucose,Whole Blood 84 mg/dL (75-99)
--- NOTE | 2017-12-15 12:23 | PCN ---
PROCEDURE NOTE PROCEDURE PERFORMED: Placement of a right brachial arterial line. PREOPERATIVE DIAGNOSIS: Respiratory failure and left lower lobe collapse. POSTOPERATIVE DIAGNOSIS: Respiratory failure and left lower lobe collapse. ANESTHESIA USED: None deployed. PROCEDURE: The patient was placed in the supine position, the right arm was placed on a table next to the bed, and the right brachial region was prepared in a sterile fashion and drapes were applied. The right brachial artery was palpated, cannulated, and a guidewire was placed. The [employer] catheter was inserted over the guidewire, and the guidewire was removed. Line was secured using 3.0 silk sutures. Procedure was well tolerated, and no evidence of any complications, good waveform was noted. MMODL / IJN: [id number] /
--- NOTE | 2017-12-15 12:23 | PCN ---
PROCEDURE NOTE PROCEDURE PERFORMED: Bronchoscopy and bronchoalveolar lavage of the left lower lobe and extraction of mucus plug. PREOPERATIVE DIAGNOSIS: Left lower lobe collapse secondary to mucus plugging. POSTOPERATIVE DIAGNOSIS: Left lower lobe collapse secondary to mucus plugging. ANESTHESIA USED: The patient was already on propofol drip, on mechanical ventilation, and prior to the procedure, she received 8 mg of Nimbex, and 0.5 mg of Dilaudid. PROCEDURE: Patient was placed in a supine position, she was already on mechanical ventilation, and we have been monitoring all along her cardiac rhythm, blood pressure, and O2 saturation. After Nimbex was given, an adapter was applied to the endotracheal tube, and I was able to insert the bronchoscope through the adapter, and went down to the distal end of the endotracheal tube. Osvaldo was visualized. Thorough examination of the osvaldo, right upper lobe, right middle lobe, right lower lobe was done. Left upper lobe lingula and left lower lobe examination was also done. There was clearly evidence of a mucus plug noted in the left lower lobe bronchus, and this was suctioned and lavaged. The whole left lower lobe was lavaged, and the fluid was sent for different diagnostic studies. No other significant findings noted in the airways. Procedure was well tolerated, no evidence of any immediate complications. MMODL / IJN: [id number] /
--- NOTE | 2017-12-15 12:40 | P.PN ---
Subjective Progress Note Date: 12/15/17 Principal diagnosis: Severe mitral regurgitation. Coronary artery disease. Paroxysmal atrial fibrillation on Coumadin for anticoagulation. Recent hospitalization for lower GI bleed, duodenal ulcer. History of left subclavian stenosis with stent placement 2014 with recent discovery of critical re-in-stent stenosis. Previous tobacco dependence with preoperative FEV1 60% of predicted. Hypertension. Hyperlipidemia. Gallbladder disease. Family history of heart disease. Preoperative nasal swab positive for MRSA. Preoperative anemia. POD #20 mitral valve replacement using a 25 mm Ribera bioprosthetic tissue valve. Coronary artery bypass grafting 1, reverse saphenous vein graft to the obtuse marginal artery. Maze procedure. Endoscopic harvesting of the right greater saphenous vein. Epi-aortic ultrasound. Intraoperative transesophageal echocardiogram. Ligation of the left atrial appendage using a 40 mm AtriClip. Intraoperative left ventricular wall tear, an unexpected but potential outcome of surgery Acute blood loss anemia, and expected outcome given patient's preoperative anemia and intraoperative bleeding. Postoperative prolonged mechanical ventilation secondary to hemodynamic instability, and unexpected but potential outcome of surgery given the extensive nature of her perioperative course Sternal incision dehiscence, a possible outcome of surgery given patient's obesity, nutrition status, debility POD #5 sternal wound debridement with placement of wound VAC. Patient's currently lying in bed in no acute distress on mechanical ventilation. Was reintubated last night secondary to flash pulmonary edema and respiratory failure. Was started on low-dose levo secondary to hypotension from sedation. Patient continues to be in atrial flutter with periodic episodes of rapid ventricular rate. Was restarted on IV amiodarone and IV heparin last night per cardiology and pulmonology, had episode of increased bleeding at sternal wound VAC site, heparin discontinued with no further evidence of increased bleeding. Bronchoscopy performed this morning by Dr. Rutledge with removal of thick mucous plug. Objective - Vital Signs Vital signs: Vital Signs Temp 97.7 F 12/15/17 08:49 Pulse 128 H 12/15/17 11:59 Resp 14 12/15/17 11:15 BP 94/43 12/15/17 11:00 Pulse Ox 100 12/15/17 11:15 Intake & Output 12/14/17 12/15/17 12/15/17 18:59 06:59 18:59 Intake Total 1398 1050 1619 Output Total 795 920 145 Balance 206 379 3867 Weight 100.6 kg 103 kg Intake: IV 869 640 890 FFP 529 600 Meropenem 1 gm In Sodium 100 150 100 Chloride 0.9% 100 ml @ 100 mls/hr IVPB Q8HR [facility] Rx#:[id number] Potassium Phosphate 10 100 mmol In Sodium Chloride 0 .9% 100 ml @ 50 mls/hr IV Q2H [facility] Rx#:[id number] Sodium Chloride 0.9% 1, 240 240 40 000 ml @ 20 mls/hr IV . Q24H [facility] Rx#:[id number] Vancomycin 1,750 mg In 250 Sodium Chloride 0.9% 250 ml @ 125 mls/hr IVPB Q12HR@0000,1200 [facility] Rx#: [id number] Intake, IV Titration 310 100 Amount Heparin Sod,Pork in 0.45% 110 NaCl 25,000 unit In 0.45 % NaCl 1 500ml.bag @ 9. 941 UNITS/KG/HR 20 mls/hr IV .Q24H [facility] Rx#: [id number] Propofol 1,000 mg In 200 100 Empty Bag 1 bag @ Titrate IV .Q0M [facility] Rx#: [id number] Tube Feeding 100 Blood Product 529 0 629 Ffp 24 Cp2d Unit 238 [id number] Ffp 24 Cpd Unit 297 [id number] Ffp 24 Cpd Unit 291 [id number] Ffp 24 Cpd Unit 0 332 [id number] Output: Drainage 150 225 Medial Chest Incision - 150 225 Woundvac Urine 645 695 145 Other: Voiding Method Indwelling Catheter Indwelling Catheter Indwelling Catheter ABP, PAP, CO, CI - Last Documented Arterial Blood Pressure 106/54 Pulmonary Artery Pressure 38/33 Cardiac Output 5.8 Cardiac Index 2.9 - Constitutional General appearance: Present: no acute distress, obese - Respiratory Details: Lungs sounds diminished bilaterally. Respirations even, nonlabored on mechanical ventilation. Current ventilator settings assist control mode, FiO2 45%, tidal by 500, respiratory rate 14, PEEP 5. 8.0 ET tube present, 20 at the lip. Left pleural chest tube to continuous wall suction, no drainage overnight , 20 mL of thin serosanguineous drainage in the last 24 hours, no air leak present. - Cardiovascular Details: S1, S2 present. Regular, tachycardic rate and rhythm, uncontrolled atrial flutter on telemetry. Sternal incision open with wound VAC in place, blood- tinged drainage. Palpable peripheral pulses bilaterally. Generalized edema present. Mammary support, heart hugger, antiembolism stockings, SCDs present. Left brachial PICC line present. - Gastrointestinal Gastrointestinal Comment(s): Abdomen soft, nontender, nondistended. Active bowel sounds 4 quadrants. OG tube present, tube feeding infusing. - Genitourinary Genitourinary Comment(s): Mason present draining clear, yellow urine. Output 20-35 mL/h overnight. - Integumentary Integumentary Comment(s): Skin is warm and dry. Anterior chest incision open with wound VAC in place. Left lower extremity EVH site well approximated. Mid back wound covered with dry intact dressing. - Neurologic Neurologic Comment(s): Sedated on propofol - Allied health notes Allied health notes reviewed: nursing - Labs CBC & Chem 7: 12/15/17 04:45 12/15/17 04:45 Labs: Abnormal Lab Results - Last 24 Hours (Table) 12/14/17 12/15/17 12/15/17 Range/Units 15:38 04:45 04:45 WBC 23.6 H (3.8-10.6) k/uL RBC 2.79 L (3.80-5.40) m/uL Hgb 7.6 L D (11.4-16.0) gm/dL Hct 25.0 L (34.0-46.0) % MCHC 30.6 L (31.0-37.0) g/dL RDW 19.8 H (11.5-15.5) % Neutrophils # 21.3 H (1.3-7.7) k/uL PT 18.1 H (9.0-12.0) sec INR 2.0 H (<1.2) APTT 115.4 H* (22.0-30.0) sec ABG pH 7.53 H (7.35-7.45) ABG pO2 342 H (83-108) mmHg ABG HCO3 33 H (21-25) mmol/L ABG Total CO2 34 H (19-24) mmol/L ABG O2 Saturation 100.0 H (94-97) % Carbon Dioxide (22-30) mmol/L BUN (7-17) mg/dL Glucose (74-99) mg/dL POC Glucose (mg/dL) (75-99) mg/dL Calcium (8.4-10.2) mg/dL Phosphorus (2.5-4.5) mg/dL Magnesium (1.6-2.3) mg/dL AST (14-36) U/L Total Protein (6.3-8.2) g/dL Albumin (3.5-5.0) g/dL 12/15/17 12/15/17 12/15/17 Range/Units 04:45 04:45 05:56 WBC (3.8-10.6) k/uL RBC (3.80-5.40) m/uL Hgb (11.4-16.0) gm/dL Hct (34.0-46.0) % MCHC (31.0-37.0) g/dL RDW (11.5-15.5) % Neutrophils # (1.3-7.7) k/uL PT (9.0-12.0) sec INR (<1.2) APTT (22.0-30.0) sec ABG pH (7.35-7.45) ABG pO2 (83-108) mmHg ABG HCO3 (21-25) mmol/L ABG Total CO2 (19-24) mmol/L ABG O2 Saturation (94-97) % Carbon Dioxide 33 H (22-30) mmol/L BUN 41 H (7-17) mg/dL Glucose 104 H (74-99) mg/dL POC Glucose (mg/dL) 108 H (75-99) mg/dL Calcium 8.1 L (8.4-10.2) mg/dL Phosphorus 2.3 L (2.5-4.5) mg/dL Magnesium 2.4 H (1.6-2.3) mg/dL AST 52 H (14-36) U/L Total Protein 5.3 L (6.3-8.2) g/dL Albumin 2.4 L (3.5-5.0) g/dL 12/15/17 Range/Units 08:16 WBC (3.8-10.6) k/uL RBC (3.80-5.40) m/uL Hgb (11.4-16.0) gm/dL Hct (34.0-46.0) % MCHC (31.0-37.0) g/dL RDW (11.5-15.5) % Neutrophils # (1.3-7.7) k/uL PT (9.0-12.0) sec INR (<1.2) APTT (22.0-30.0) sec ABG pH 7.50 H (7.35-7.45) ABG pO2 123 H (83-108) mmHg ABG HCO3 33 H (21-25) mmol/L ABG Total CO2 35 H (19-24) mmol/L ABG O2 Saturation 99.4 H (94-97) % Carbon Dioxide (22-30) mmol/L BUN (7-17) mg/dL Glucose (74-99) mg/dL POC Glucose (mg/dL) (75-99) mg/dL Calcium (8.4-10.2) mg/dL Phosphorus (2.5-4.5) mg/dL Magnesium (1.6-2.3) mg/dL AST (14-36) U/L Total Protein (6.3-8.2) g/dL Albumin (3.5-5.0) g/dL Microbiology - Last 24 Hours (Table) 12/14/17 21:30 Gram Stain - Preliminary Sputum Sputum Culture - Preliminary 12/10/17 10:50 Anaerobic Culture - Final Chest 12/10/17 10:40 Anaerobic Culture - Final Chest 12/10/17 10:45 Anaerobic Culture - Final Chest 12/13/17 05:27 Urine Culture - Final Urine,Catheterized - Imaging and Cardiology Chest x-ray: report reviewed, image reviewed Assessment and Plan (1) Acute blood loss anemia Current Visit: Yes Status: Acute Code(s): D62 - ACUTE POSTHEMORRHAGIC ANEMIA SNOMED Code(s): 556684546 (2) CAD (coronary artery disease) Current Visit: Yes Status: Chronic Code(s): I25.10 - ATHSCL HEART DISEASE OF [place] CORONARY ARTERY W/O ANG PCTRS SNOMED Code(s): 78248156 (3) Hyperlipidemia Current Visit: Yes Status: Chronic Code(s): E78.5 - HYPERLIPIDEMIA, UNSPECIFIED SNOMED Code(s): 91385310 (4) Hypertension Current Visit: Yes Status: Chronic Code(s): I10 - ESSENTIAL (PRIMARY) HYPERTENSION SNOMED Code(s): 90712865 (5) Severe mitral regurgitation Current Visit: Yes Status: Chronic Code(s): I34.0 - NONRHEUMATIC MITRAL ( VALVE) INSUFFICIENCY SNOMED Code(s): 87397256 (6) Stenosis of left subclavian artery Current Visit: Yes Status: Chronic Code(s): I77.1 - STRICTURE OF ARTERY SNOMED Code(s): 29271663476488957 (7) Paroxysmal atrial fibrillation Current Visit: No Status: Resolved Code(s): I48.0 - PAROXYSMAL ATRIAL FIBRILLATION SNOMED Code(s): 905667096 (8) History of GI bleed Current Visit: No Status: Resolved Code(s): Z87.19 - PERSONAL HISTORY OF OTHER DISEASES OF THE DIGESTIVE SYSTEM SNOMED Code(s): 023038068 (9) Family history of coronary artery disease Current Visit: Yes Status: Chronic Code(s): Z82.49 - FAMILY HX OF ISCHEM HEART DIS AND OTH DIS OF THE CIRC SYS SNOMED Code(s): 510584496 Plan: 1. Continue baby aspirin, statin, subcutaneous heparin, beta krunal. Will increase beta krunal therapy as tolerated. 2. Continue amiodarone for history of paroxysmal atrial fibrillation on home amiodarone. No further IV amiodarone. 3. Ventilator management per pulmonology. 4. Sternal incision cultured, consistent with Serratia. Placed on meropenem per Dr. Olivera. Wound VAC in place to be changed Wednesday, Wednesday, and Fridays. Dr. Krause consulted future wound flap closure, current plans for next week, date to be determined. Will hold off changing wound VAC today secondary to events overnight. 5. Will monitor labs, chest x-rays. 6. Bronchodilators per pulmonology. 7. Will hold off on Coumadin for now as patient is preparing for repeat surgery next week. No IV heparin. 8. GI/DVT prophylaxis. 9. Increase activity once extubated. PT/OT/cardiac rehab following. 10. Continue tube feedings for maximum nutrition. 11. Keep Mason for strict accurate intake and output. 12. Keep left pleural chest tube for now to continuous wall suction. 13. More recommendations as patient progresses. Time with Patient: Greater than 30
--- NOTE | 2017-12-15 12:41 | P.PN ---
Subjective Progress Note Date: 12/15/17 Principal diagnosis: Status post mitral valve replacement with maze procedure postoperative day #19 On 12/11/2017 I'm seeing this patient for a follow-up. The patient is this morning, comfortable in the BiPAP. She is using the BiPAP on and off during the day. She was taken to the operating room where his surgical wound was debrided and the sternum was debrided and the wound VAC was applied. There is a positive gram-negative infection with Serratia and the patient is currently on IV Merrem. Also, left-sided chest tube was inserted. The chest tube drained approximately 130 mL of fluid for yesterday since it was placed and another 60 mL for today. The patient's pleural wound VAC has drained approximately 550 mL for yesterday and another 100 mL for today. The patient is afebrile. The patient is hemodynamically stable. The patient went into atrial fibrillation and this morning she converted into sinus and she is back and forth between flutter and sinus rhythm. She is on no pressors. Her INR is at 1.8. No anticoagulation will be offered today. Lasix surgery consultation was obtained for a future muscle flap. Hemoglobin is at 7.7. White cell count is at 16.3. The function is stable with a creatinine of 0.8. She is using incentive spirometer. She has no other complaints otherwise for now. On 12/12/2017, the patient is still doing well. The patient is sitting up in her bed and she is on a BiPAP at a pressure of 14/5 cm of water with an FiO2 of 50%. Her chest x-ray is quite stable and the patient has still a persistent consolidation/opacity in the left lung base. I have scanned the patient earlier this week and the findings the left lung bases consistent with some posterior pericardial effusion, atelectasis and small effusions. For that reason a chest tube was inserted and the total amount of output from the chest tube was 300 mL and since then the output has dropped considerably. The wound VAC is in place and the total amount of output over the past 12 hours as been around 250 mL. The wound cultures are showing gram-negative, the previous fluid drainage was positive for Serratia and the patient is currently on IV Merrem. White cell count is up to 19 and this is something to monitor knowing that her white cell count from yesterday was 16.3. Renal function is stable. She is producing adequate amount of urine output. Abdomen today is at 8.1. She is weak. She is taking approximately 20% of her diet and she is drinking a sure. Her cardiac rhythm is a flutter with 2 to one block and since this morning the patient became progressively more tachycardic. She received an additional amiodarone dose yesterday without much benefit. She is on beta blockers on metoprolol at a dose of 50 mg by mouth twice a day. She became slightly hypotensive yesterday and she was supposed to get albumin which was not given as the patient's blood pressure subsequently improved. She is off anticoagulation awaiting a sternal flap and the patient's INR today is at 1.7. Patient was reevaluated today on 12/13/2017, remains with very marginal pulmonary status, remains on BiPAP, FiO2 of 50%, IPAP of 14 and EPAP of 5. Chest x-ray seems to be worsening, CT of the chest is also worsening there is also a near-complete collapse of the left lung, only a small portion of the upper lobe remains aerated. Small pleural effusions noted, and what is worsening is the fact that she has an enlarging moderate to large pericardial effusion measuring 2.7 cm in thickness. This is along the left heart margin but increasing along the right heart margin measuring now 1.7 cm compared to 1 cm previously. Considering the findings, I felt strongly that the patient may benefit from bronchoscopy and left lung evaluation, however with the finding of increasing pericardial effusion, may have to be seen by thoracic surgery and consider a pericardial window. Her labs were reviewed, WBC count is 24.6 hemoglobin is 8.6 and her INR is 1.8. Patient is noted to be a bit dyspneic on BiPAP at 50%. Patient was reevaluated today on 12/14/2017, remains on BiPAP, patient is afraid to get off BiPAP. Same settings including IPAP of 14 and EPAP of 5, and she is on 50% FiO2. No evidence of leak, her tidal volume is anywhere between 450-500 , and her rate is about 18. Chest x-ray today showed slight improvement in the left lung collapse, however continues to have significant collapse of the left lower lobe. No bronchoscopy was done yesterday mostly because of the abnormal finding regarding her pericardial effusion, and we were not certain whether the patient will need a pericardial window at the time. The surgeons felt no need for pericardial window, patient was scheduled for bronchoscopy early this morning, but her INR is elevated, hence we recommended 2 units of fresh frozen plasma, and I still plan to do the bronchoscopy this afternoon. Family was made aware of the reasons for delay, but hopefully we can get it done sometime this afternoon. Labs were reviewed, her WBC count is 17.1 hemoglobin is 10.2 her INR was 2.1 earlier today. Rest of the labs were reviewed. Hemodynamically the patient is stable, intermittently she may have episodes of atrial flutter without hemodynamic instability. Reevaluated today on 12/15/2017, patient's condition worsened late p.m. yesterday , she was in atrial flutter, developed worsening shortness of breath, and did not improve with diuretics, BiPAP, and given multiple meds to control her atrial flutter including amiodarone, and she was given beta blockers. Patient continued to show worsening dyspnea, and she was intubated placed on mechanical ventilation. Immediate chest x-ray post intubation showed adequate expansion of the left lower lobe, however follow-up chest x-ray today showed left lower lobe collapse. I performed bronchoscopy on the patient today, she was given earlier 2 more units of fresh frozen plasma, and I proceeded to bronchoscopy and BAL of the left lower lobe. Indeed there was a mucous plug in the left lower lobe bronchus, this was suctioned, and lavage of the whole left lower lobe was done. Fluid was sent for different diagnostic studies, please refer to the full operative report. Vent settings were reviewed, patient is now on assist control rate of 18, 45% FiO2, and tidal volume of 500 PEEP is at 5. ABG showed a pO2 of 123 pCO2 of 43 pH of 7.50 antibiotics mcguire, patient is now on Merrem and vancomycin. Objective - Vital Signs Vital signs: Vital Signs Temp 98.3 F 12/15/17 12:00 Pulse 130 H 12/15/17 12:14 Resp 14 12/15/17 12:00 BP 94/43 12/15/17 11:00 Pulse Ox 100 12/15/17 12:00 Intake & Output 12/14/17 12/15/17 12/15/17 18:59 06:59 18:59 Intake Total 1398 1050 1739 Output Total 795 920 170 Balance 340 208 1548 Weight 100.6 kg 103 kg Intake: IV 847 859 7325 FFP 529 600 Meropenem 1 gm In Sodium 100 150 100 Chloride 0.9% 100 ml @ 100 mls/hr IVPB Q8HR [facility] Rx#:[id number] Potassium Phosphate 10 200 mmol In Sodium Chloride 0 .9% 100 ml @ 50 mls/hr IV Q2H [facility] Rx#:[id number] Sodium Chloride 0.9% 1, 240 240 60 000 ml @ 20 mls/hr IV . Q24H [facility] Rx#:[id number] Vancomycin 1,750 mg In 250 Sodium Chloride 0.9% 250 ml @ 125 mls/hr IVPB Q12HR@0000,1200 [facility] Rx#: [id number] Intake, IV Titration 310 100 Amount Heparin Sod,Pork in 0.45% 110 NaCl 25,000 unit In 0.45 % NaCl 1 500ml.bag @ 9. 941 UNITS/KG/HR 20 mls/hr IV .Q24H [facility] Rx#: [id number] Propofol 1,000 mg In 200 100 Empty Bag 1 bag @ Titrate IV .Q0M [facility] Rx#: [id number] Tube Feeding 100 Blood Product 529 0 629 Ffp 24 Cp2d Unit 238 [id number] Ffp 24 Cpd Unit 297 [id number] Ffp 24 Cpd Unit 291 [id number] Ffp 24 Cpd Unit 0 332 [id number] Output: Drainage 150 225 Medial Chest Incision - 150 225 Woundvac Urine 645 695 170 Other: Voiding Method Indwelling Catheter Indwelling Catheter Indwelling Catheter ABP, PAP, CO, CI - Last Documented Arterial Blood Pressure 128/64 Pulmonary Artery Pressure 38/33 Cardiac Output 5.8 Cardiac Index 2.9 - Exam - Constitutional General appearance: Physical exam revealed a 67-year-old, female, intubated, sedated. - EENT ENT: Dry mucous membranes, no neck masses, endotracheal tube is in place. - Neck Details: No neck masses, no JVD, throat is clear, no stridor. - Respiratory Details: diminished breath sounds at the left base.. Respirations are symmetrical. Left pleural chest tube remains intact evacuating thin serosanguineous drainage. No air leak present. Chest tube remains to low continuous wall suction -20 cm H2O. sternal wound VAC is noted. - Cardiovascular Details: Irregular rhythm with a tachycardic rate. S1 and S2 present, negative for S3, gallop or murmur. Sternal wound with wound VAC in place, - Gastrointestinal Gastrointestinal Comment(s): Obese, soft, nontender, no megaly, no rebound, no guarding, positive bowel sounds.- Genitourinary Genitourinary Comment(s): Mason catheter remains in place with good urine output - Integumentary Integumentary Comment(s): Skin is relatively unremarkable.. Wound VAC in place to sternal wound. Positive serosanguineous drainage. Stage II wound to her coccyx with local with wound care treatment. No clubbing or cyanosis. - Neurologic Neurologic: Sedated, on propofol drip at present. - Musculoskeletal Musculoskeletal: Cannot be assessed - Psychiatric Psychiatric: Cannot be assessed today patient is fully sedated. - Labs CBC & Chem 7: 12/15/17 04:45 12/15/17 04:45 Labs: Abnormal Lab Results - Last 24 Hours (Table) 12/14/17 12/15/17 12/15/17 Range/Units 15:38 04:45 04:45 WBC 23.6 H (3.8-10.6) k/uL RBC 2.79 L (3.80-5.40) m/uL Hgb 7.6 L D (11.4-16.0) gm/dL Hct 25.0 L (34.0-46.0) % MCHC 30.6 L (31.0-37.0) g/dL RDW 19.8 H (11.5-15.5) % Neutrophils # 21.3 H (1.3-7.7) k/uL PT 18.1 H (9.0-12.0) sec INR 2.0 H (<1.2) APTT 115.4 H* (22.0-30.0) sec ABG pH 7.53 H (7.35-7.45) ABG pO2 342 H (83-108) mmHg ABG HCO3 33 H (21-25) mmol/L ABG Total CO2 34 H (19-24) mmol/L ABG O2 Saturation 100.0 H (94-97) % Carbon Dioxide (22-30) mmol/L BUN (7-17) mg/dL Glucose (74-99) mg/dL POC Glucose (mg/dL) (75-99) mg/dL Calcium (8.4-10.2) mg/dL Phosphorus (2.5-4.5) mg/dL Magnesium (1.6-2.3) mg/dL AST (14-36) U/L Total Protein (6.3-8.2) g/dL Albumin (3.5-5.0) g/dL Vancomycin Trough ug/mL 12/15/17 12/15/17 12/15/17 Range/Units 04:45 04:45 05:56 WBC (3.8-10.6) k/uL RBC (3.80-5.40) m/uL Hgb (11.4-16.0) gm/dL Hct (34.0-46.0) % MCHC (31.0-37.0) g/dL RDW (11.5-15.5) % Neutrophils # (1.3-7.7) k/uL PT (9.0-12.0) sec INR (<1.2) APTT (22.0-30.0) sec ABG pH (7.35-7.45) ABG pO2 (83-108) mmHg ABG HCO3 (21-25) mmol/L ABG Total CO2 (19-24) mmol/L ABG O2 Saturation (94-97) % Carbon Dioxide 33 H (22-30) mmol/L BUN 41 H (7-17) mg/dL Glucose 104 H (74-99) mg/dL POC Glucose (mg/dL) 108 H (75-99) mg/dL Calcium 8.1 L (8.4-10.2) mg/dL Phosphorus 2.3 L (2.5-4.5) mg/dL Magnesium 2.4 H (1.6-2.3) mg/dL AST 52 H (14-36) U/L Total Protein 5.3 L (6.3-8.2) g/dL Albumin 2.4 L (3.5-5.0) g/dL Vancomycin Trough ug/mL 12/15/17 12/15/17 Range/Units 08:16 11:30 WBC (3.8-10.6) k/uL RBC (3.80-5.40) m/uL Hgb (11.4-16.0) gm/dL Hct (34.0-46.0) % MCHC (31.0-37.0) g/dL RDW (11.5-15.5) % Neutrophils # (1.3-7.7) k/uL PT (9.0-12.0) sec INR (<1.2) APTT (22.0-30.0) sec ABG pH 7.50 H (7.35-7.45) ABG pO2 123 H (83-108) mmHg ABG HCO3 33 H (21-25) mmol/L ABG Total CO2 35 H (19-24) mmol/L ABG O2 Saturation 99.4 H (94-97) % Carbon Dioxide (22-30) mmol/L BUN (7-17) mg/dL Glucose (74-99) mg/dL POC Glucose (mg/dL) (75-99) mg/dL Calcium (8.4-10.2) mg/dL Phosphorus (2.5-4.5) mg/dL Magnesium (1.6-2.3) mg/dL AST (14-36) U/L Total Protein (6.3-8.2) g/dL Albumin (3.5-5.0) g/dL Vancomycin Trough 30.6 H* ug/mL Microbiology - Last 24 Hours (Table) 12/14/17 21:30 Gram Stain - Preliminary Sputum Sputum Culture - Preliminary 12/10/17 10:50 Anaerobic Culture - Final Chest 12/10/17 10:40 Anaerobic Culture - Final Chest 12/10/17 10:45 Anaerobic Culture - Final Chest 12/13/17 05:27 Urine Culture - Final Urine,Catheterized Assessment and Plan Assessment: 1. Severe mitral valve regurgitation, status post mitral valve replacement, with Maze procedure, left atrial appendage exclusion, and one-vessel bypass, postop day #19 2 sternal wound dehiscence/infection with gram-negative infection and the patient has Serratia currently on Merrem. The patient underwent debridement and the wound VAC is applied. She will ultimately need a flap and plastic surgery has been consulted. The patient remains on IV meropenem. Afebrile. White cell count is at 19. Wound VAC remains in place. 3 left basilar atelectasis/and left lower lobe collapse, status post bronchoscopy and lavage of the left lower lobe on 12/15/2017. 4 acute respiratory failure, hypoxic requiring reintubation and mechanical ventilation. 5. acute urinary tract infection, urine culture positive for E. coli and Serratia marcescens, on meropenem 6. Anemia, multifactorial in the patient's hemoglobin is 7.6. 7 paroxysmal atrial flutter with rapid ventricular response currently on beta blockers and oral amiodarone, anticoagulation therapy is presently on hold because of bleeding from the wound VAC was noted. Presently heparin and Coumadin are both on hold. Patient did receive 2 units of fresh frozen plasma earlier today. And I was able to safely perform bronchoscopy without any bleeding in the airways noted. 8 left subclavian stenosis 9 leukocytosis 10 obesity 11 previous history of GI bleed 12 pressure ulceration in the back and buttocks, stage III Recommendation: Continue present supportive care measures, continue mechanical ventilation, continue nutritional support, hemodynamic support, presently she is on norepinephrine at a low dose, no plans to wean or extubated today, we will address that in the next 24 hours. Repeat chest x-ray in a.m. critical care time is 35 minutes, not including the time spent on procedures. Discussed her condition with her daughter at bedside. Time with Patient: Greater than 30
[2017-12-15 12:45] LABS: ABG Base Excess -0.3 mmol/L; ABG HCO3 25 mmol/L (21-25); ABG PCO2 46 mmHg (35-45); ABG PH 7.35 (7.35-7.45); ABG PO2 308 mmHg (83-108); ABG Potassium Whole Blood 4.4 mmol/L (3.4-4.5); ABG Sodium Whole Blood 142 mmol/L (135-146); ABG TCO2 27 mmol/L (19-24)
[2017-12-15 12:45] LABS: ABG Base Excess -1.6 mmol/L; ABG HCO3 24 mmol/L (21-25); ABG PCO2 45 mmHg (35-45); ABG PH 7.34 (7.35-7.45); ABG PO2 305 mmHg (83-108); ABG Potassium Whole Blood 4.4 mmol/L (3.4-4.5); ABG Sodium Whole Blood 142 mmol/L (135-146); ABG TCO2 26 mmol/L (19-24)
[2017-12-15 12:45] LABS: ABG HCO3 26 mmol/L (21-25); ABG PCO2 44 mmHg (35-45); ABG PH 7.38 (7.35-7.45); ABG Potassium Whole Blood 4.6 mmol/L (3.4-4.5); ABG Sodium Whole Blood 143 mmol/L (135-146); ABG TCO2 28 mmol/L (19-24)
[2017-12-15 12:45] LABS: ABG Base Excess 0.8 mmol/L; ABG HCO3 26 mmol/L (21-25); ABG PCO2 44 mmHg (35-45); ABG PH 7.38 (7.35-7.45); ABG Potassium Whole Blood 4.6 mmol/L (3.4-4.5); ABG Sodium Whole Blood 143 mmol/L (135-146); ABG TCO2 27 mmol/L (19-24)
[2017-12-15 12:46] LABS: ABG Base Excess -0.4 mmol/L; ABG HCO3 25 mmol/L (21-25); ABG PCO2 42 mmHg (35-45); ABG PH 7.38 (7.35-7.45); ABG PO2 396 mmHg (83-108); ABG Potassium Whole Blood 4.9 mmol/L (3.4-4.5); ABG Sodium Whole Blood 140 mmol/L (135-146); ABG TCO2 26 mmol/L (19-24)
[2017-12-15 12:46] LABS: ABG Base Excess -0.5 mmol/L; ABG HCO3 25 mmol/L (21-25); ABG PCO2 45 mmHg (35-45); ABG PH 7.36 (7.35-7.45); ABG PO2 335 mmHg (83-108); ABG Sodium Whole Blood 140 mmol/L (135-146); ABG TCO2 27 mmol/L (19-24)
[2017-12-15 12:46] LABS: ABG Base Excess -1.6 mmol/L; ABG HCO3 25 mmol/L (21-25); ABG PCO2 54 mmHg (35-45); ABG PH 7.28 (7.35-7.45); ABG Potassium Whole Blood 4.3 mmol/L (3.4-4.5); ABG Sodium Whole Blood 141 mmol/L (135-146); ABG TCO2 27 mmol/L (19-24)
[2017-12-15 12:47] LABS: ABG Base Excess -2.1 mmol/L; ABG HCO3 24 mmol/L (21-25); ABG PCO2 45 mmHg (35-45); ABG PH 7.33 (7.35-7.45); ABG PO2 405 mmHg (83-108); ABG Potassium Whole Blood 4.7 mmol/L (3.4-4.5); ABG Sodium Whole Blood 140 mmol/L (135-146); ABG TCO2 25 mmol/L (19-24)
[2017-12-15 12:47] LABS: ABG Base Excess -1.5 mmol/L; ABG HCO3 25 mmol/L (21-25); ABG PCO2 50 mmHg (35-45); ABG PH 7.31 (7.35-7.45); ABG PO2 289 mmHg (83-108); ABG Potassium Whole Blood 4.7 mmol/L (3.4-4.5); ABG Sodium Whole Blood 140 mmol/L (135-146); ABG TCO2 27 mmol/L (19-24)
[2017-12-15 12:47] LABS: ABG Base Excess -1.3 mmol/L; ABG HCO3 25 mmol/L (21-25); ABG PCO2 51 mmHg (35-45); ABG PH 7.31 (7.35-7.45); ABG Potassium Whole Blood 3.9 mmol/L (3.4-4.5); ABG Sodium Whole Blood 143 mmol/L (135-146); ABG TCO2 27 mmol/L (19-24)
[2017-12-15 12:47] LABS: ABG Base Excess -1.5 mmol/L; ABG HCO3 25 mmol/L (21-25); ABG PCO2 52 mmHg (35-45); ABG PH 7.29 (7.35-7.45); ABG Sodium Whole Blood 144 mmol/L (135-146); ABG TCO2 27 mmol/L (19-24)
[2017-12-15 12:48] LABS: ABG Base Excess -4.7 mmol/L; ABG HCO3 22 mmol/L (21-25); ABG PCO2 46 mmHg (35-45); ABG PH 7.28 (7.35-7.45); ABG PO2 390 mmHg (83-108); ABG Sodium Whole Blood 143 mmol/L (135-146); ABG TCO2 23 mmol/L (19-24)
[2017-12-15 12:48] LABS: ABG Base Excess -0.8 mmol/L; ABG HCO3 24 mmol/L (21-25); ABG PCO2 38 mmHg (35-45); ABG PO2 416 mmHg (83-108); ABG Potassium Whole Blood 4.5 mmol/L (3.4-4.5); ABG Sodium Whole Blood 141 mmol/L (135-146); ABG TCO2 25 mmol/L (19-24)
[2017-12-15 12:48] LABS: ABG Base Excess -2.2 mmol/L; ABG HCO3 25 mmol/L (21-25); ABG Oxygen Saturation 99.7 % (94-97); ABG PCO2 52 mmHg (35-45); ABG PH 7.28 (7.35-7.45); ABG PO2 198 mmHg (83-108); ABG Potassium Whole Blood 3.8 mmol/L (3.4-4.5); ABG Sodium Whole Blood 144 mmol/L (135-146); ABG TCO2 26 mmol/L (19-24)
[2017-12-15 12:55] LABS: ABG PO2 >420 mmHg (83-108)
[2017-12-15 12:56] LABS: ABG PO2 >420 mmHg (83-108)
[2017-12-15 13:03] LABS: ABG PO2 >420 mmHg (83-108)
[2017-12-15 13:07] LABS: ABG PO2 >420 mmHg (83-108)
[2017-12-15 13:09] LABS: ABG PO2 >420 mmHg (83-108)
--- NOTE | 2017-12-15 13:13 | P.PN ---
Subjective Patient intubated. Yesterday she underwent bronchoscopy and mucous plugs were removed. Heart is still about 130 beats a minute atrial tachycardia Blood pressure 120 806 4 mmHg respirations 14-16 heart rate 130 beats a minute afebrile 98.3F Breath sounds are reduced bilaterally Heart sounds are soft and distant Abdomen is soft Impression Rheumatic heart disease predominantly severe MR Mitral valve replacement CAD/CABG Maze procedure Left atrial appendectomy Sternal wound dehiscence Postprocedure atrial tachycardia drug refractory refractory to amiodarone Suggest Avoid multiple boluses of IV amiodarone Discontinue low-dose oral amiodarone Since she is not going to be anticoagulated at this time I would not cardiovert her since she has mitral valve disease Proceed with sternal wound myocutaneous flap grafting Objective - Vital Signs Vital signs: Vital Signs Temp 98.3 F 12/15/17 12:00 Pulse 130 H 12/15/17 12:14 Resp 14 12/15/17 12:00 BP 94/43 12/15/17 11:00 Pulse Ox 100 12/15/17 12:00 Intake & Output 12/14/17 12/15/17 12/15/17 18:59 06:59 18:59 Intake Total 1398 1050 1739 Output Total 795 920 170 Balance 349 394 0526 Weight 100.6 kg 103 kg Intake: IV 609 873 6005 FFP 529 600 Meropenem 1 gm In Sodium 100 150 100 Chloride 0.9% 100 ml @ 100 mls/hr IVPB Q8HR [facility] Rx#:[id number] Potassium Phosphate 10 200 mmol In Sodium Chloride 0 .9% 100 ml @ 50 mls/hr IV Q2H [facility] Rx#:[id number] Sodium Chloride 0.9% 1, 240 240 60 000 ml @ 20 mls/hr IV . Q24H [facility] Rx#:[id number] Vancomycin 1,750 mg In 250 Sodium Chloride 0.9% 250 ml @ 125 mls/hr IVPB Q12HR@0000,1200 [facility] Rx#: [id number] Intake, IV Titration 310 100 Amount Heparin Sod,Pork in 0.45% 110 NaCl 25,000 unit In 0.45 % NaCl 1 500ml.bag @ 9. 941 UNITS/KG/HR 20 mls/hr IV .Q24H [facility] Rx#: [id number] Propofol 1,000 mg In 200 100 Empty Bag 1 bag @ Titrate IV .Q0M [facility] Rx#: [id number] Tube Feeding 100 Blood Product 529 0 629 Ffp 24 Cp2d Unit 238 [id number] Ffp 24 Cpd Unit 297 [id number] Ffp 24 Cpd Unit 291 [id number] Ffp 24 Cpd Unit 0 332 [id number] Output: Drainage 150 225 Medial Chest Incision - 150 225 Woundvac Urine 645 695 170 Other: Voiding Method Indwelling Catheter Indwelling Catheter Indwelling Catheter ABP, PAP, CO, CI - Last Documented Arterial Blood Pressure 128/64 Pulmonary Artery Pressure 38/33 Cardiac Output 5.8 Cardiac Index 2.9 - Labs CBC & Chem 7: 12/15/17 04:45 12/15/17 04:45 Labs: Abnormal Lab Results - Last 24 Hours (Table) 11/25/17 11/25/17 11/25/17 Range/Units 08:41 08:44 09:41 WBC (3.8-10.6) k/uL RBC (3.80-5.40) m/uL Hgb (11.4-16.0) gm/dL Hct (34.0-46.0) % MCHC (31.0-37.0) g/dL RDW (11.5-15.5) % Neutrophils # (1.3-7.7) k/uL PT (9.0-12.0) sec INR (<1.2) APTT (22.0-30.0) sec ABG pH (7.35-7.45) ABG pCO2 46 H (35-45) mmHg ABG pO2 >420 H >420 H 308 H (83-108) mmHg ABG HCO3 26 H 26 H (21-25) mmol/L ABG Total CO2 28 H 27 H 27 H (19-24) mmol/L ABG O2 Saturation 100.0 H 100.0 H 100.0 H (94-97) % ABG Hematocrit 22 L 22 L 22 L (34.0-46.0) % ABG Potassium 4.6 H 4.6 H (3.4-4.5) mmol/L ABG Ionized Calcium (4.5-5.3) mg/dL ABG Glucose 105 H 105 H 111 H (75-99) mg/dL ABG Lactic Acid (0.5-1.6) mmol/L Hemoglobin 7.0 L* 7.0 L* 7.3 L (11.4-16.0) gm/dL Carbon Dioxide (22-30) mmol/L BUN (7-17) mg/dL Glucose (74-99) mg/dL POC Glucose (mg/dL) (75-99) mg/dL Calcium (8.4-10.2) mg/dL Phosphorus (2.5-4.5) mg/dL Magnesium (1.6-2.3) mg/dL AST (14-36) U/L Total Protein (6.3-8.2) g/dL Albumin (3.5-5.0) g/dL Arterial Blood Potassium 4.6 H 4.6 H (3.4-4.5) mmol/L Arterial Blood Glucose 105 H 105 H 111 H (75-99) mg/dL Vancomycin Trough ug/mL 11/25/17 11/25/17 11/25/17 Range/Units 10:09 10:21 11:05 WBC (3.8-10.6) k/uL RBC (3.80-5.40) m/uL Hgb (11.4-16.0) gm/dL Hct (34.0-46.0) % MCHC (31.0-37.0) g/dL RDW (11.5-15.5) % Neutrophils # (1.3-7.7) k/uL PT (9.0-12.0) sec INR (<1.2) APTT (22.0-30.0) sec ABG pH 7.34 L 7.28 L (7.35-7.45) ABG pCO2 54 H (35-45) mmHg ABG pO2 305 H >420 H 396 H (83-108) mmHg ABG HCO3 (21-25) mmol/L ABG Total CO2 26 H 27 H 26 H (19-24) mmol/L ABG O2 Saturation 100.0 H 100.0 H 100.0 H (94-97) % ABG Hematocrit 24 L 27 L 26 L (34.0-46.0) % ABG Potassium 4.9 H (3.4-4.5) mmol/L ABG Ionized Calcium 4.0 L 4.1 L (4.5-5.3) mg/dL ABG Glucose 112 H 127 H 146 H (75-99) mg/dL ABG Lactic Acid 2.0 H 1.9 H (0.5-1.6) mmol/L Hemoglobin 7.9 L 8.9 L 8.6 L (11.4-16.0) gm/dL Carbon Dioxide (22-30) mmol/L BUN (7-17) mg/dL Glucose (74-99) mg/dL POC Glucose (mg/dL) (75-99) mg/dL Calcium (8.4-10.2) mg/dL Phosphorus (2.5-4.5) mg/dL Magnesium (1.6-2.3) mg/dL AST (14-36) U/L Total Protein (6.3-8.2) g/dL Albumin (3.5-5.0) g/dL Arterial Blood Potassium 4.9 H (3.4-4.5) mmol/L Arterial Blood Glucose 112 H 127 H 146 H (75-99) mg/dL Vancomycin Trough ug/mL 11/25/17 11/25/17 11/25/17 Range/Units 11:38 12:12 12:49 WBC (3.8-10.6) k/uL RBC (3.80-5.40) m/uL Hgb (11.4-16.0) gm/dL Hct (34.0-46.0) % MCHC (31.0-37.0) g/dL RDW (11.5-15.5) % Neutrophils # (1.3-7.7) k/uL PT (9.0-12.0) sec INR (<1.2) APTT (22.0-30.0) sec ABG pH 7.31 L 7.33 L (7.35-7.45) ABG pCO2 50 H (35-45) mmHg ABG pO2 335 H 289 H 405 H (83-108) mmHg ABG HCO3 (21-25) mmol/L ABG Total CO2 27 H 27 H 25 H (19-24) mmol/L ABG O2 Saturation 100.0 H 100.0 H 100.0 H (94-97) % ABG Hematocrit 25 L 26 L 24 L (34.0-46.0) % ABG Potassium 5.0 H 4.7 H 4.7 H (3.4-4.5) mmol/L ABG Ionized Calcium 4.2 L 4.3 L 4.1 L (4.5-5.3) mg/dL ABG Glucose 169 H 163 H 165 H (75-99) mg/dL ABG Lactic Acid 1.9 H 2.2 H* 2.2 H* (0.5-1.6) mmol/L Hemoglobin 8.3 L 8.4 L 7.9 L (11.4-16.0) gm/dL Carbon Dioxide (22-30) mmol/L BUN (7-17) mg/dL Glucose (74-99) mg/dL POC Glucose (mg/dL) (75-99) mg/dL Calcium (8.4-10.2) mg/dL Phosphorus (2.5-4.5) mg/dL Magnesium (1.6-2.3) mg/dL AST (14-36) U/L Total Protein (6.3-8.2) g/dL Albumin (3.5-5.0) g/dL Arterial Blood Potassium 5.0 H 4.7 H 4.7 H (3.4-4.5) mmol/L Arterial Blood Glucose 169 H 163 H 165 H (75-99) mg/dL Vancomycin Trough ug/mL 11/25/17 11/25/17 11/25/17 Range/Units 14:02 15:19 15:53 WBC (3.8-10.6) k/uL RBC (3.80-5.40) m/uL Hgb (11.4-16.0) gm/dL Hct (34.0-46.0) % MCHC (31.0-37.0) g/dL RDW (11.5-15.5) % Neutrophils # (1.3-7.7) k/uL PT (9.0-12.0) sec INR (<1.2) APTT (22.0-30.0) sec ABG pH 7.31 L 7.29 L 7.28 L (7.35-7.45) ABG pCO2 51 H 52 H 46 H (35-45) mmHg ABG pO2 >420 H >420 H 390 H (83-108) mmHg ABG HCO3 (21-25) mmol/L ABG Total CO2 27 H 27 H (19-24) mmol/L ABG O2 Saturation 100.0 H 100.0 H 100.0 H (94-97) % ABG Hematocrit 27 L 25 L 21 L (34.0-46.0) % ABG Potassium (3.4-4.5) mmol/L ABG Ionized Calcium 3.9 L 6.5 H* 3.9 L (4.5-5.3) mg/dL ABG Glucose 100 H 117 H 158 H (75-99) mg/dL ABG Lactic Acid 2.0 H 1.9 H 3.1 H* (0.5-1.6) mmol/L Hemoglobin 8.8 L 8.0 L 6.9 L* (11.4-16.0) gm/dL Carbon Dioxide (22-30) mmol/L BUN (7-17) mg/dL Glucose (74-99) mg/dL POC Glucose (mg/dL) (75-99) mg/dL Calcium (8.4-10.2) mg/dL Phosphorus (2.5-4.5) mg/dL Magnesium (1.6-2.3) mg/dL AST (14-36) U/L Total Protein (6.3-8.2) g/dL Albumin (3.5-5.0) g/dL Arterial Blood Potassium (3.4-4.5) mmol/L Arterial Blood Glucose 100 H 117 H 158 H (75-99) mg/dL Vancomycin Trough ug/mL 11/25/17 11/25/17 12/14/17 Range/Units 16:46 17:37 15:38 WBC (3.8-10.6) k/uL RBC (3.80-5.40) m/uL Hgb (11.4-16.0) gm/dL Hct (34.0-46.0) % MCHC (31.0-37.0) g/dL RDW (11.5-15.5) % Neutrophils # (1.3-7.7) k/uL PT (9.0-12.0) sec INR (<1.2) APTT (22.0-30.0) sec ABG pH 7.28 L 7.53 H (7.35-7.45) ABG pCO2 52 H (35-45) mmHg ABG pO2 416 H 198 H 342 H (83-108) mmHg ABG HCO3 33 H (21-25) mmol/L ABG Total CO2 25 H 26 H 34 H (19-24) mmol/L ABG O2 Saturation 100.0 H 99.7 H 100.0 H (94-97) % ABG Hematocrit 28 L 24 L (34.0-46.0) % ABG Potassium (3.4-4.5) mmol/L ABG Ionized Calcium 3.9 L 4.0 L (4.5-5.3) mg/dL ABG Glucose 163 H 139 H (75-99) mg/dL ABG Lactic Acid 3.1 H* 2.8 H* (0.5-1.6) mmol/L Hemoglobin 9.1 L 7.8 L (11.4-16.0) gm/dL Carbon Dioxide (22-30) mmol/L BUN (7-17) mg/dL Glucose (74-99) mg/dL POC Glucose (mg/dL) (75-99) mg/dL Calcium (8.4-10.2) mg/dL Phosphorus (2.5-4.5) mg/dL Magnesium (1.6-2.3) mg/dL AST (14-36) U/L Total Protein (6.3-8.2) g/dL Albumin (3.5-5.0) g/dL Arterial Blood Potassium (3.4-4.5) mmol/L Arterial Blood Glucose 163 H 139 H (75-99) mg/dL Vancomycin Trough ug/mL 12/15/17 12/15/17 12/15/17 Range/Units 04:45 04:45 04:45 WBC 23.6 H (3.8-10.6) k/uL RBC 2.79 L (3.80-5.40) m/uL Hgb 7.6 L D (11.4-16.0) gm/dL Hct 25.0 L (34.0-46.0) % MCHC 30.6 L (31.0-37.0) g/dL RDW 19.8 H (11.5-15.5) % Neutrophils # 21.3 H (1.3-7.7) k/uL PT 18.1 H (9.0-12.0) sec INR 2.0 H (<1.2) APTT 115.4 H* (22.0-30.0) sec ABG pH (7.35-7.45) ABG pCO2 (35-45) mmHg ABG pO2 (83-108) mmHg ABG HCO3 (21-25) mmol/L ABG Total CO2 (19-24) mmol/L ABG O2 Saturation (94-97) % ABG Hematocrit (34.0-46.0) % ABG Potassium (3.4-4.5) mmol/L ABG Ionized Calcium (4.5-5.3) mg/dL ABG Glucose (75-99) mg/dL ABG Lactic Acid (0.5-1.6) mmol/L Hemoglobin (11.4-16.0) gm/dL Carbon Dioxide 33 H (22-30) mmol/L BUN 41 H (7-17) mg/dL Glucose 104 H (74-99) mg/dL POC Glucose (mg/dL) (75-99) mg/dL Calcium 8.1 L (8.4-10.2) mg/dL Phosphorus (2.5-4.5) mg/dL Magnesium (1.6-2.3) mg/dL AST 52 H (14-36) U/L Total Protein 5.3 L (6.3-8.2) g/dL Albumin 2.4 L (3.5-5.0) g/dL Arterial Blood Potassium (3.4-4.5) mmol/L Arterial Blood Glucose (75-99) mg/dL Vancomycin Trough ug/mL 12/15/17 12/15/17 12/15/17 Range/Units 04:45 05:56 08:16 WBC (3.8-10.6) k/uL RBC (3.80-5.40) m/uL Hgb (11.4-16.0) gm/dL Hct (34.0-46.0) % MCHC (31.0-37.0) g/dL RDW (11.5-15.5) % Neutrophils # (1.3-7.7) k/uL PT (9.0-12.0) sec INR (<1.2) APTT (22.0-30.0) sec ABG pH 7.50 H (7.35-7.45) ABG pCO2 (35-45) mmHg ABG pO2 123 H (83-108) mmHg ABG HCO3 33 H (21-25) mmol/L ABG Total CO2 35 H (19-24) mmol/L ABG O2 Saturation 99.4 H (94-97) % ABG Hematocrit (34.0-46.0) % ABG Potassium (3.4-4.5) mmol/L ABG Ionized Calcium (4.5-5.3) mg/dL ABG Glucose (75-99) mg/dL ABG Lactic Acid (0.5-1.6) mmol/L Hemoglobin (11.4-16.0) gm/dL Carbon Dioxide (22-30) mmol/L BUN (7-17) mg/dL Glucose (74-99) mg/dL POC Glucose (mg/dL) 108 H (75-99) mg/dL Calcium (8.4-10.2) mg/dL Phosphorus 2.3 L (2.5-4.5) mg/dL Magnesium 2.4 H (1.6-2.3) mg/dL AST (14-36) U/L Total Protein (6.3-8.2) g/dL Albumin (3.5-5.0) g/dL Arterial Blood Potassium (3.4-4.5) mmol/L Arterial Blood Glucose (75-99) mg/dL Vancomycin Trough ug/mL 12/15/17 Range/Units 11:30 WBC (3.8-10.6) k/uL RBC (3.80-5.40) m/uL Hgb (11.4-16.0) gm/dL Hct (34.0-46.0) % MCHC (31.0-37.0) g/dL RDW (11.5-15.5) % Neutrophils # (1.3-7.7) k/uL PT (9.0-12.0) sec INR (<1.2) APTT (22.0-30.0) sec ABG pH (7.35-7.45) ABG pCO2 (35-45) mmHg ABG pO2 (83-108) mmHg ABG HCO3 (21-25) mmol/L ABG Total CO2 (19-24) mmol/L ABG O2 Saturation (94-97) % ABG Hematocrit (34.0-46.0) % ABG Potassium (3.4-4.5) mmol/L ABG Ionized Calcium (4.5-5.3) mg/dL ABG Glucose (75-99) mg/dL ABG Lactic Acid (0.5-1.6) mmol/L Hemoglobin (11.4-16.0) gm/dL Carbon Dioxide (22-30) mmol/L BUN (7-17) mg/dL Glucose (74-99) mg/dL POC Glucose (mg/dL) (75-99) mg/dL Calcium (8.4-10.2) mg/dL Phosphorus (2.5-4.5) mg/dL Magnesium (1.6-2.3) mg/dL AST (14-36) U/L Total Protein (6.3-8.2) g/dL Albumin (3.5-5.0) g/dL Arterial Blood Potassium (3.4-4.5) mmol/L Arterial Blood Glucose (75-99) mg/dL Vancomycin Trough 30.6 H* ug/mL Microbiology - Last 24 Hours (Table) 12/14/17 21:30 Gram Stain - Preliminary Sputum Sputum Culture - Preliminary 12/10/17 10:50 Anaerobic Culture - Final Chest 12/10/17 10:40 Anaerobic Culture - Final Chest 12/10/17 10:45 Anaerobic Culture - Final Chest 12/13/17 05:27 Urine Culture - Final Urine,Catheterized
[2017-12-15] MEDS ORDERED: VANCOMYCIN IV PER PHARMACY 1 EACH MISC MISCELLANE PRN (13:39)
[2017-12-15 16:49] LABS: Appearance,BF Cloudy; Color,BF Colorless
[2017-12-15 16:50] LABS: Nucleated Cells, Body Fluid 6900 /uL; RBC, Body Fluid 150 /uL
[2017-12-15 17:14] LABS: Mononuclear WBC,Body Fluid 5 %; Polynuclear WBC,Body Fluid 95 %; Total Cells Counted,Body Fluid 100
[2017-12-15 17:43] LABS: Glucose,Whole Blood 88 mg/dL (75-99)
--- NOTE | 2017-12-15 18:52 | P.PN ---
Subjective Progress Note Date: 12/15/17 Progress note being dictated for Dr. Lugo Interval history: This is 67-year-old female status post CABG, mitral valve replacement, status post multiple blood products transfusions. Remains vent dependent on 40% FiO2/+5 of PEEP. Chest x-ray reporting fluid overload, improvement in volume status, aeration.Maintained on norepinephrine, Primacor, dopamine and insulin drip. Cardiac index 2.7. Telemetry atrial flutter/sinus tach. Tube feeding initiated via OG tube. Hemoglobin 7.3, Platelets decreased to 64 today, maintained on low-dose aspirin. Review systems unable to obtain as patient sedated and on mechanical ventilation. Active Medications Albuterol/Ipratropium (Duoneb 0.5 Mg-3 Mg/3 Ml Soln) 3 ml INHALATION RT-Q4H [facility] Last Admin: 11/29/17 15:17 Dose: 3 ml Albuterol/Ipratropium (Duoneb 0.5 Mg-3 Mg/3 Ml Soln) 3 ml INHALATION RT-Q2H PRN PRN Reason: Shortness Of Breath Or Wheezing Amiodarone HCl (Cordarone) 200 mg PO BID [facility] Aspirin (Aspirin) 81 mg PO DAILY [facility] Last Admin: 11/29/17 08:54 Dose: 81 mg Atorvastatin Calcium (Lipitor) 40 mg PO DAILY [facility] Last Admin: 11/29/17 08:54 Dose: 40 mg Benzocaine/Menthol (Cepacol Lozenge) 1 each MUCOUS MEM Q2H PRN PRN Reason: Sore Throat Bisacodyl (Dulcolax) 10 mg RECTAL DAILY PRN PRN Reason: Constipation Chlorhexidine Gluconate (Peridex) 15 ml MUCOUS MEM BID [facility] Last Admin: 11/29/17 08:48 Dose: 15 ml Furosemide (Lasix) 40 mg IV ONCE ONE Stop: 11/29/17 20:01 Propofol 1,000 mg/ IV Solution 100 mls @ 0 mls/hr IV .Q0M [facility]; Titrate PRN Reason: Protocol Last Admin: 11/29/17 17:54 Dose: 26.13 mcg/kg/min, 17.2 mls/hr Norepinephrine Bitartrate (Levophed-0.9% Nacl 16 Mg/250ml Pmx) 16 mg in 250 mls @ 0 mls/hr IV .Q0M [facility]; Titrate PRN Reason: Protocol Last Admin: 11/29/17 17:54 Dose: 2 mcg/min, 1.875 mls/hr Sodium Chloride (Saline 0.45%) 1,000 mls @ 30 mls/hr IV .Q24H [facility] Last Admin: 11/29/17 10:28 Dose: Not Given Milrinone Lactate/Dextrose 20 (mg/ IV Solution) 100 mls @ 6.58 mls/hr IV .[id number] [facility] PRN Reason: 0.2 MCG/KG/MIN Last Admin: 11/29/17 15:38 Dose: 0.2 mcg/kg/min, 6.58 mls/hr Insulin Aspart (Novolog) 0 unit SQ Q6HR [facility] PRN Reason: Protocol Last Admin: 11/29/17 12:36 Dose: Not Given Magnesium Hydroxide (Milk Of Magnesia) 2,400 mg PO BID PRN PRN Reason: Constipation Metoprolol Tartrate (Lopressor) 12.5 mg PO BID [facility] Last Admin: 11/29/17 08:55 Dose: 12.5 mg Miscellaneous Information (Magnesium Per Protocol) 1 each MISCELLANE DAILY PRN ; Protocol PRN Reason: Per Protocol Miscellaneous Information (Phosphorus Per Protocol) 1 each MISCELLANE DAILY PRN ; Protocol PRN Reason: Per Protocol Miscellaneous Information (Potassium Per Protocol) 1 each MISCELLANE DAILY PRN ; Protocol PRN Reason: Per Protocol Miscellaneous Information (Potassium Per Protocol) 1 each MISCELLANE DAILY PRN ; Protocol PRN Reason: Per Protocol Morphine Sulfate (Morphine Oral Dana 2mg/Ml) 6 mg PO Q2H PRN PRN Reason: Severe Pain Ondansetron HCl (Zofran) 4 mg IVP Q6HR PRN PRN Reason: Nausea And Vomiting Pantoprazole Sodium (Protonix) 40 mg IVP DAILY [facility] Last Admin: 11/29/17 08:55 Dose: 40 mg Senna/Docusate Sodium (Senokot-S) 2 each PO HS [facility] Last Admin: 11/28/17 20:41 Dose: 2 each Sodium Chloride (Saline Flush) 10 ml IV BID [facility] Last Admin: 11/29/17 08:56 Dose: 10 ml 11/30/2017 Chest x-ray reporting increased congestion, received additional Lasix. extubated this morning, currently maintained on BiPAP. Norepinephrine weaned off this morning. Maintained on Primacor, cardiac index 2.6. Received 1 dose of Lasix IV push. Renal function improving. Hemoglobin 7, platelets increased to 74. Atrial flutter per telemetry. Review systems unable to obtain as patient BiPAP dependent. Active Medications Generic Name Dose Route Start Last Admin Trade Name Freq PRN Reason Stop Dose Admin Albuterol/Ipratropium 3 ml 11/25/17 20:00 11/30/17 15:23 Duoneb 0.5 Mg-3 Mg/3 Ml Soln INHALATION 3 ml RT-Q4H [facility] Administration Albuterol/Ipratropium 3 ml 11/26/17 17:53 Duoneb 0.5 Mg-3 Mg/3 Ml Soln INHALATION RT-Q2H PRN Shortness Of Breath Or Wheezing Amiodarone HCl 200 mg 11/29/17 21:00 11/30/17 08:14 Cordarone PO 200 mg BID [facility] Administration Aspirin 81 mg 11/26/17 10:15 11/30/17 08:15 Aspirin PO 81 mg DAILY [facility] Administration Atorvastatin Calcium 40 mg 11/26/17 09:00 11/30/17 08:14 Lipitor PO 40 mg DAILY [facility] Administration Benzocaine/Menthol 1 each 11/25/17 19:03 Cepacol Lozenge MUCOUS MEM Q2H PRN Sore Throat Bisacodyl 10 mg 11/26/17 17:52 Dulcolax RECTAL DAILY PRN Constipation Fondaparinux 2.5 mg 11/30/17 11:30 11/30/17 13:23 Arixtra SQ 2.5 mg DAILY [facility] Administration Norepinephrine Bitartrate 16 mg in 250 mls @ 0 mls/hr 11/26/17 04:15 11:58 Levophed-0.9% Nacl 16 Mg/250ml Pmx IV 0 mcg/min .Q0M [facility] 0 mls/hr Protocol Titration Titrate Sodium Chloride 1,000 mls @ 10 mls/hr 11/26/17 10:15 11/30/17 12:51 Saline 0.45% IV Not Given .Q24H [facility] Milrinone Lactate/Dextrose 20 100 mls @ 6.58 mls/hr 11/29/17 15:00 11/30/17 08:16 mg/ IV Solution IV 0.2 mcg/kg/min .[id number] [facility] 6.58 mls/hr 0.2 MCG/KG/MIN Infusion Insulin Aspart 0 unit 11/29/17 12:00 11/30/17 12:50 Novolog SQ Not Given Q6HR [facility] Protocol Magnesium Hydroxide 2,400 mg 11/26/17 17:53 Milk Of Magnesia PO BID PRN Constipation Metoprolol Tartrate 12.5 mg 11/26/17 09:00 11/30/17 08:15 Lopressor PO 12.5 mg BID [facility] Administration Miscellaneous Information 1 each 11/25/17 19:03 Magnesium Per Protocol MISCELLANE DAILY PRN Per Protocol Protocol Miscellaneous Information 1 each 11/25/17 19:03 Phosphorus Per Protocol MISCELLANE DAILY PRN Per Protocol Protocol Miscellaneous Information 1 each 11/25/17 19:03 Potassium Per Protocol MISCELLANE DAILY PRN Per Protocol Protocol Miscellaneous Information 1 each 11/29/17 12:01 Potassium Per Protocol MISCELLANE DAILY PRN Per Protocol Protocol Morphine Sulfate 6 mg 11/29/17 13:31 Morphine Oral Dana 2mg/Ml PO Q2H PRN Severe Pain Ondansetron HCl 4 mg 11/25/17 19:03 Zofran IVP Q6HR PRN Nausea And Vomiting Pantoprazole Sodium 40 mg 11/26/17 09:00 11/30/17 08:15 Protonix IVP 40 mg DAILY [facility] Administration Senna/Docusate Sodium 2 each 11/26/17 21:00 11/29/17 20:40 Senokot-S PO 2 each HS [facility] Administration Sodium Chloride 10 ml 11/25/17 21:00 11/30/17 08:15 Saline Flush IV 10 ml BID [facility] Administration 12/01/2017 Breathing improving, weaned off of BiPAP and down to 6 L high flow. Wheezing resolved. Chest x-ray reports improvement. Staff reports patient appeared to be choking on pills last night, speech therapy consulted. Receiving one unit of packed RBCs for hemoglobin of 6.7. Mediastinal chest tubes discontinued, left pleural chest tube remains. Maintained on Primacor. Telemetry atrial flutter. Review of systems: CONSTITUTIONAL: No fever, no malaise HEENT: No recent visual problems or hearing problems. Denied any sore throat. CARDIOVASCULAR: No chest pain, no palpitations, no syncope. PULMONARY: Improving shortness of breath, no cough, no hemoptysis. GASTROINTESTINAL: No diarrhea, no nausea, no vomiting, no abdominal pain. Normoactive bowel sounds. NEUROLOGICAL: No headaches, diffuse weakness, no numbness. HEMATOLOGICAL: Denies any bleeding or petechiae. GENITOURINARY: Denies any burning micturition, frequency, or urgency. ENDOCRINE: Denies any polyuria or polydipsia. PSYCHIATRIC: No anxiety, no depression Active Medications Hydrocodone Bitart/Acetaminophen ([place] 5-325) 1 each PO Q4HR PRN PRN Reason: MILD TO MODERATE Pain Last Admin: 12/01/17 22:44 Dose: 1 each Hydrocodone Bitart/Acetaminophen ([place] 5-325) 2 each PO Q4HR PRN PRN Reason: MODERATE TO SEVERE Pain Albuterol/Ipratropium (Duoneb 0.5 Mg-3 Mg/3 Ml Soln) 3 ml INHALATION RT-Q4H [facility] Last Admin: 12/02/17 15:06 Dose: 3 ml Albuterol/Ipratropium (Duoneb 0.5 Mg-3 Mg/3 Ml Soln) 3 ml INHALATION RT-Q2H PRN PRN Reason: Shortness Of Breath Or Wheezing Last Admin: 12/01/17 18:09 Dose: 3 ml Amiodarone HCl (Cordarone) 200 mg PO BID [facility] Last Admin: 12/02/17 08:10 Dose: 200 mg Aspirin (Aspirin) 81 mg PO DAILY [facility] Last Admin: 12/02/17 08:10 Dose: 81 mg Atorvastatin Calcium (Lipitor) 40 mg PO DAILY [facility] Last Admin: 12/02/17 08:10 Dose: 40 mg Benzocaine/Menthol (Cepacol Lozenge) 1 each MUCOUS MEM Q2H PRN PRN Reason: Sore Throat Bisacodyl (Dulcolax) 10 mg RECTAL DAILY PRN PRN Reason: Constipation Budesonide (Pulmicort) 1 mg INHALATION RT-BID [facility] Last Admin: 12/02/17 07:19 Dose: 1 mg Fondaparinux (Arixtra) 2.5 mg SQ DAILY [facility] Last Admin: 12/02/17 08:10 Dose: 2.5 mg Formoterol Fumarate (Perforomist) 20 mcg INHALATION RT-BID [facility] Last Admin: 12/02/17 07:36 Dose: 20 mcg Norepinephrine Bitartrate (Levophed-0.9% Nacl 16 Mg/250ml Pmx) 16 mg in 250 mls @ 0 mls/hr IV .Q0M [facility]; Titrate PRN Reason: Protocol Last Titration: 11/30/17 11:58 Dose: 0 mcg/min, 0 mls/hr Sodium Chloride (Saline 0.45%) 1,000 mls @ 10 mls/hr IV .Q24H [facility] Last Admin: 12/01/17 14:04 Dose: 10 mls/hr Milrinone Lactate/Dextrose 20 (mg/ IV Solution) 100 mls @ 6.58 mls/hr IV .[id number] [facility] PRN Reason: 0.2 MCG/KG/MIN Last Admin: 12/02/17 08:57 Dose: 0.2 mcg/kg/min, 6.58 mls/hr Insulin Aspart (Novolog) 0 unit SQ Q6HR [facility] PRN Reason: Protocol Last Admin: 12/02/17 12:53 Dose: Not Given Magnesium Hydroxide (Milk Of Magnesia) 2,400 mg PO BID PRN PRN Reason: Constipation Methylprednisolone Sodium Succinate (Solu-Medrol) 30 mg IV Q8HR [facility] Last Admin: 12/02/17 08:10 Dose: 30 mg Metoprolol Tartrate (Lopressor) 25 mg PO BID [facility] Last Admin: 12/02/17 08:59 Dose: 25 mg Miscellaneous Information (Magnesium Per Protocol) 1 each MISCELLANE DAILY PRN ; Protocol PRN Reason: Per Protocol Miscellaneous Information (Phosphorus Per Protocol) 1 each MISCELLANE DAILY PRN ; Protocol PRN Reason: Per Protocol Miscellaneous Information (Potassium Per Protocol) 1 each MISCELLANE DAILY PRN ; Protocol PRN Reason: Per Protocol Miscellaneous Information (Potassium Per Protocol) 1 each MISCELLANE DAILY PRN ; Protocol PRN Reason: Per Protocol Ondansetron HCl (Zofran) 4 mg IVP Q6HR PRN PRN Reason: Nausea And Vomiting Pantoprazole Sodium (Protonix) 40 mg IVP DAILY [facility] Last Admin: 12/02/17 08:10 Dose: 40 mg Senna/Docusate Sodium (Senokot-S) 2 each PO HS [facility] Last Admin: 12/01/17 21:55 Dose: 2 each Sodium Chloride (Saline Flush) 10 ml IV BID [facility] Last Admin: 12/02/17 12:51 Dose: 10 ml 12/02/17 Much more alert today. Oxygen weaned further down to 5 L nasal cannula, maintaining O2 sats in the high 90s. Pleural chest tube discontinued. Chest x- ray reporting probable right lower lobe atelectasis/effusion. Underwent modified barium swallow, with recommendations of regular diet, thin liquids, chin tuck, no straw, small bites/sepsis/sips; no impairment with exception of mild transient penetration with thin liquids which patient independently cleared. Yesterday receive 1 unit of packed RBCs with current hemoglobin 8. Weaning of Primacor in progress. 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 Review of systems: CONSTITUTIONAL: No fever, no malaise, no fatigue. HEENT: No recent visual problems or hearing problems. Denied any sore throat. CARDIOVASCULAR: No chest pain, no palpitations, no syncope. PULMONARY: Minimal shortness of breath, no cough, no hemoptysis. GASTROINTESTINAL: No diarrhea, no nausea, no vomiting, no abdominal pain. Normoactive bowel sounds. NEUROLOGICAL: No headaches, no weakness, no numbness. HEMATOLOGICAL: Denies any bleeding or petechiae. GENITOURINARY: Denies any burning micturition, frequency, or urgency. MUSCULOSKELETAL/RHEUMATOLOGICAL: Denies any joint pain, swelling, or any muscle pain. ENDOCRINE: Denies any polyuria or polydipsia. PSYCHIATRIC: No anxiety, no depression The rest of the 14 point review of systems is negative Active Medications Generic Name Dose Route Start Last Admin Trade Name Freq PRN Reason Stop Dose Admin Hydrocodone Bitart/Acetaminophen 1 each 12/01/17 12:20 12/01/17 22:44 [place] 5-325 PO 1 each Q4HR PRN Administration MILD TO MODERATE Pain Hydrocodone Bitart/Acetaminophen 2 each 12/01/17 12:20 [place] 5-325 PO Q4HR PRN MODERATE TO SEVERE Pain Albuterol/Ipratropium 3 ml 11/25/17 20:00 12/02/17 15:06 Duoneb 0.5 Mg-3 Mg/3 Ml Soln INHALATION 3 ml RT-Q4H [facility] Administration Albuterol/Ipratropium 3 ml 11/26/17 17:53 12/01/17 18:09 Duoneb 0.5 Mg-3 Mg/3 Ml Soln INHALATION 3 ml RT-Q2H PRN Administration Shortness Of Breath Or Wheezing Amiodarone HCl 200 mg 11/29/17 21:00 12/02/17 08:10 Cordarone PO 200 mg BID [facility] Administration Aspirin 81 mg 11/26/17 10:15 12/02/17 08:10 Aspirin PO 81 mg DAILY [facility] Administration Atorvastatin Calcium 40 mg 11/26/17 09:00 12/02/17 08:10 Lipitor PO 40 mg DAILY [facility] Administration Benzocaine/Menthol 1 each 11/25/17 19:03 Cepacol Lozenge MUCOUS MEM Q2H PRN Sore Throat Bisacodyl 10 mg 11/26/17 17:52 Dulcolax RECTAL DAILY PRN Constipation Budesonide 1 mg 12/01/17 20:00 12/02/17 07:19 Pulmicort INHALATION 1 mg RT-BID [facility] Administration Fondaparinux 2.5 mg 11/30/17 11:30 12/02/17 08:10 Arixtra SQ 2.5 mg DAILY [facility] Administration Formoterol Fumarate 20 mcg 12/01/17 20:00 12/02/17 07:36 Perforomist INHALATION 20 mcg RT-BID [facility] Administration Norepinephrine Bitartrate 16 mg in 250 mls @ 0 mls/hr 11/26/17 04:15 11:58 Levophed-0.9% Nacl 16 Mg/250ml Pmx IV 0 mcg/min .Q0M [facility] 0 mls/hr Protocol Titration Titrate Sodium Chloride 1,000 mls @ 10 mls/hr 11/26/17 10:15 12/02/17 15:41 Saline 0.45% IV Not Given .Q24H [facility] Milrinone Lactate/Dextrose 20 100 mls @ 6.58 mls/hr 11/29/17 15:00 12/02/17 08:57 mg/ IV Solution IV 0.2 mcg/kg/min .[id number] [facility] 6.58 mls/hr 0.2 MCG/KG/MIN Administration Insulin Aspart 0 unit 11/29/17 12:00 12/02/17 12:53 Novolog SQ Not Given Q6HR [facility] Protocol Magnesium Hydroxide 2,400 mg 11/26/17 17:53 Milk Of Magnesia PO BID PRN Constipation Methylprednisolone Sodium Succinate 30 mg 12/01/17 16:00 12/02/17 08:10 Solu-Medrol IV 30 mg Q8HR [facility] Administration Metoprolol Tartrate 25 mg 12/02/17 09:00 12/02/17 08:59 Lopressor PO 25 mg BID [facility] Administration Miscellaneous Information 1 each 11/25/17 19:03 Magnesium Per Protocol MISCELLANE DAILY PRN Per Protocol Protocol Miscellaneous Information 1 each 11/25/17 19:03 Phosphorus Per Protocol MISCELLANE DAILY PRN Per Protocol Protocol Miscellaneous Information 1 each 11/25/17 19:03 Potassium Per Protocol MISCELLANE DAILY PRN Per Protocol Protocol Miscellaneous Information 1 each 11/29/17 12:01 Potassium Per Protocol MISCELLANE DAILY PRN Per Protocol Protocol Ondansetron HCl 4 mg 11/25/17 19:03 Zofran IVP Q6HR PRN Nausea And Vomiting Pantoprazole Sodium 40 mg 11/26/17 09:00 12/02/17 08:10 Protonix IVP 40 mg DAILY [facility] Administration Senna/Docusate Sodium 2 each 11/26/17 21:00 12/01/17 21:55 Senokot-S PO 2 each HS [facility] Administration Sodium Chloride 10 ml 11/25/17 21:00 12/02/17 12:51 Saline Flush IV 10 ml BID [facility] Administration 12/03/17 maintained on nebulized bronchodilators, steroids,patient tachypneic, requiring BiPap throughout today off and on. Chest x-ray suggestive of fluid overload. Received additional Lasix. Maintained on oral amiodarone, remains in a-flutter. Overdrive atrial pacing attempted unsuccessfully. Digoxin 2 ordered. Pacer wires discontinued today. Stool at bedside with PT OT, remains extremely weak. Primacor weaned off yesterday. 2017 currently in atrial fibrillation with heart rates up into the 150s, scheduled for cardioversion tomorrow. INR 2.2. Patient currently wearing BiPAP ,has required on and off all day. Chest ultrasound reporting bilateral pleural effusions, larger on the right. Thoracentesis on hold, awaiting cardioversion.Chest x-ray reporting prominent interstitium and central vascularity, increased bibasilar density. Attempting diuresing with Lasix and Zaroxolyn. Review systems unable to obtain as patient currently on BiPAP. Active Medications Hydrocodone Bitart/Acetaminophen ([place] 5-325) 1 each PO Q4HR PRN PRN Reason: MILD TO MODERATE Pain Last Admin: 12/07/17 10:48 Dose: 1 each Hydrocodone Bitart/Acetaminophen ([place] 5-325) 2 each PO Q4HR PRN PRN Reason: MODERATE TO SEVERE Pain Last Admin: 12/07/17 16:39 Dose: 2 each Albuterol/Ipratropium (Duoneb 0.5 Mg-3 Mg/3 Ml Soln) 3 ml INHALATION RT-Q2H PRN PRN Reason: Shortness Of Breath Or Wheezing Last Admin: 12/01/17 18:09 Dose: 3 ml Albuterol/Ipratropium (Duoneb 0.5 Mg-3 Mg/3 Ml Soln) 3 ml INHALATION RT-QID [facility] Last Admin: 12/07/17 16:43 Dose: 3 ml Amiodarone HCl (Cordarone) 200 mg PO BID [facility] Aspirin (Aspirin) 81 mg PO DAILY [facility] Last Admin: 12/07/17 08:53 Dose: 81 mg Atorvastatin Calcium (Lipitor) 40 mg PO DAILY [facility] Last Admin: 12/07/17 08:53 Dose: 40 mg Benzocaine/Menthol (Cepacol Lozenge) 1 each MUCOUS MEM Q2H PRN PRN Reason: Sore Throat Bisacodyl (Dulcolax) 10 mg RECTAL DAILY PRN PRN Reason: Constipation Budesonide (Pulmicort) 1 mg INHALATION RT-BID [facility] Last Admin: 12/07/17 08:36 Dose: 1 mg Escitalopram Oxalate (Lexapro) 10 mg PO HS [facility] Furosemide (Lasix) 40 mg IV Q12HR [facility] Last Admin: 12/07/17 08:33 Dose: 40 mg Piperacillin/Tazobactam/ (Dextrose 3.375 gm/ IV Solution) 50 mls @ 12.5 mls/hr IVPB Q8HR [facility] Last Admin: 12/07/17 16:39 Dose: 12.5 mls/hr Sodium Chloride (Saline 0.9%) 1,000 mls @ 20 mls/hr IV .Q24H [facility] Last Admin: 12/07/17 13:00 Dose: 20 mls/hr Lactated Ringer's (Lactated Ringers) 1,000 mls @ 20 mls/hr IV .Q24H [facility] Last Admin: 12/06/17 20:45 Dose: 20 mls/hr Insulin Aspart (Novolog) 0 unit SQ ACHS [facility] PRN Reason: Protocol Last Admin: 12/07/17 13:01 Dose: 2 unit Magnesium Hydroxide (Milk Of Magnesia) 2,400 mg PO BID PRN PRN Reason: Constipation Methylprednisolone Sodium Succinate (Solu-Medrol) 30 mg IV Q8HR [facility] Last Admin: 12/07/17 16:39 Dose: 30 mg Metolazone (Zaroxolyn) 5 mg PO DAILY [facility] Last Admin: 12/07/17 08:53 Dose: 5 mg Metoprolol Tartrate (Lopressor) 50 mg PO BID [facility] Last Admin: 12/07/17 08:53 Dose: 50 mg Miscellaneous Information (Magnesium Per Protocol) 1 each MISCELLANE DAILY PRN ; Protocol PRN Reason: Per Protocol Miscellaneous Information (Phosphorus Per Protocol) 1 each MISCELLANE DAILY PRN ; Protocol PRN Reason: Per Protocol Miscellaneous Information (Potassium Per Protocol) 1 each MISCELLANE DAILY PRN ; Protocol PRN Reason: Per Protocol Ondansetron HCl (Zofran) 4 mg IVP Q6HR PRN PRN Reason: Nausea And Vomiting Pantoprazole Sodium (Protonix) 40 mg PO AC-BRKFST [facility] Last Admin: 12/07/17 08:53 Dose: 40 mg Senna/Docusate Sodium (Senokot-S) 2 each PO HS [facility] Last Admin: 12/06/17 20:29 Dose: 2 each Sodium Chloride (Saline Flush) 10 ml IV BID [facility] Last Admin: 12/07/17 10:48 Dose: 10 ml 12/07/2017 Underwent successful cardioversion this morning,360J X1, remains in sinus rhythm. Currently wearing BiPAP. Nonproductive cough. Diuresing well on Lasix and Zaroxolyn with 24-hour I&O reflecting a negative fluid balance. Chest x-ray reporting stable bilateral areas of infiltrate and pleural effusions , possible CHF, possible pneumonia. INR 3.8, afebrile, WBC 17. Maintained on Zosyn. Sternal wound drainage, cultures sent. 12/08/2017 Cardioverted yesterday, remains in sinus rhythm .continues requiring BiPAP for majority of morning. Echo reporting-limited study for assessment of pericardial effusion, small generalized pericardial effusion, low normal LV function, EF 50-55%. Chest CT reporting sternal dehiscence, moderate to large pericardial effusion, possible mass effect onto the left ventricle, no significant right atrial dilatation to clearly indicate tamponade, moderate left pleural effusion with adjacent complete left lower lobar and inferior lingular collapse, small right pleural effusion, right basilar subsegmental atelectasis. Chest x-ray noted. Blood sugars controlled. INR 4.8, received vitamin K this morning. Diuresing well on Lasix IV push, Zaroxolyn. 24-hour I& O reflecting a negative fluid balance, decreased weight. Midsternal incision open, draining large amount of serosanguineous drainage. Currently maintained on Zosyn. Wound cultures pending. Afebrile. Review systems unable to obtain as patient currently on BiPAP. Active Medications Generic Name Dose Route Start Last Admin Trade Name Freq PRN Reason Stop Dose Admin Hydrocodone Bitart/Acetaminophen 1 each 12/01/17 12:20 12/08/17 06:26 [place] 5-325 PO 1 each Q4HR PRN Administration MILD TO MODERATE Pain Hydrocodone Bitart/Acetaminophen 2 each 12/01/17 12:20 12/08/17 18:41 [place] 5-325 PO 2 each Q4HR PRN Administration MODERATE TO SEVERE Pain Acetazolamide Sodium 250 mg 12/08/17 09:15 12/08/17 11:16 Diamox IV 12/08/17 21:01 250 mg Q12HR [facility] Administration Albuterol/Ipratropium 3 ml 11/26/17 17:53 12/08/17 05:16 Duoneb 0.5 Mg-3 Mg/3 Ml Soln INHALATION 3 ml RT-Q2H PRN Administration Shortness Of Breath Or Wheezing Albuterol/Ipratropium 3 ml 12/03/17 08:00 12/08/17 15:38 Duoneb 0.5 Mg-3 Mg/3 Ml Soln INHALATION 3 ml RT-QID [facility] Administration Amiodarone HCl 200 mg 12/08/17 09:00 12/08/17 08:24 Cordarone PO 200 mg BID [facility] Administration Aspirin 81 mg 11/26/17 10:15 12/08/17 08:24 Aspirin PO 81 mg DAILY [facility] Administration Atorvastatin Calcium 40 mg 11/26/17 09:00 12/08/17 08:25 Lipitor PO 40 mg DAILY [facility] Administration Benzocaine/Menthol 1 each 11/25/17 19:03 Cepacol Lozenge MUCOUS MEM Q2H PRN Sore Throat Bisacodyl 10 mg 11/26/17 17:52 Dulcolax RECTAL DAILY PRN Constipation Budesonide 1 mg 12/01/17 20:00 12/08/17 09:26 Pulmicort INHALATION 1 mg RT-BID [facility] Administration Escitalopram Oxalate 10 mg 12/07/17 21:00 12/07/17 20:10 Lexapro PO 10 mg HS [facility] Administration Piperacillin/Tazobactam/ 50 mls @ 12.5 mls/hr 12/04/17 16:00 12/08/17 16:11 Dextrose 3.375 gm/ IV Solution IVPB 12.5 mls/hr Q8HR [facility] Administration Sodium Chloride 1,000 mls @ 20 mls/hr 12/06/17 10:45 12/08/17 13:47 Saline 0.9% IV Not Given .Q24H [facility] Insulin Aspart 0 unit 12/02/17 21:00 12/08/17 17:46 Novolog SQ 1 unit ACHS [facility] Administration Protocol Magnesium Hydroxide 2,400 mg 11/26/17 17:53 Milk Of Magnesia PO BID PRN Constipation Metoprolol Tartrate 50 mg 12/06/17 21:00 12/08/17 08:24 Lopressor PO 50 mg BID [facility] Administration Miscellaneous Information 1 each 11/25/17 19:03 Magnesium Per Protocol MISCELLANE DAILY PRN Per Protocol Protocol Miscellaneous Information 1 each 11/25/17 19:03 Phosphorus Per Protocol MISCELLANE DAILY PRN Per Protocol Protocol Miscellaneous Information 1 each 11/25/17 19:03 Potassium Per Protocol MISCELLANE DAILY PRN Per Protocol Protocol Ondansetron HCl 4 mg 11/25/17 19:03 Zofran IVP Q6HR PRN Nausea And Vomiting Pantoprazole Sodium 40 mg 12/05/17 07:30 12/08/17 08:25 Protonix PO 40 mg AC-[id number] [facility] Administration Senna/Docusate Sodium 2 each 11/26/17 21:00 12/07/17 20:16 Senokot-S PO 2 each HS [facility] Administration Sodium Chloride 10 ml 11/25/17 21:00 12/08/17 11:16 Saline Flush IV 10 ml BID [facility] Administration 12/09/17 Remains in sinus rhythm. mostly BiPAP dependent. Incentive spirometer up to 700 -750. Chest x-ray reporting improving moderate pleural effusion, cardiomegaly. Sternal wound culture positive for gram-negative bacilli. Maintained on Zosyn. Diet intake fair. Blood sugars controlled. Review systems unable to be performed as patient on BiPAP Active Medications Hydrocodone Bitart/Acetaminophen ([place] 5-325) 1 each PO Q4HR PRN PRN Reason: MILD TO MODERATE Pain Last Admin: 12/09/17 10:03 Dose: 1 each Hydrocodone Bitart/Acetaminophen ([place] 5-325) 2 each PO Q4HR PRN PRN Reason: MODERATE TO SEVERE Pain Last Admin: 12/09/17 14:51 Dose: 2 each Albuterol/Ipratropium (Duoneb 0.5 Mg-3 Mg/3 Ml Soln) 3 ml INHALATION RT-Q2H PRN PRN Reason: Shortness Of Breath Or Wheezing Last Admin: 12/08/17 05:16 Dose: 3 ml Albuterol/Ipratropium (Duoneb 0.5 Mg-3 Mg/3 Ml Soln) 3 ml INHALATION RT-QID [facility] Last Admin: 12/09/17 15:42 Dose: 3 ml Amiodarone HCl (Cordarone) 200 mg PO BID [facility] Last Admin: 12/09/17 08:12 Dose: 200 mg Aspirin (Aspirin) 81 mg PO DAILY [facility] Last Admin: 12/09/17 08:13 Dose: 81 mg Atorvastatin Calcium (Lipitor) 40 mg PO DAILY [facility] Last Admin: 12/09/17 08:13 Dose: 40 mg Benzocaine/Menthol (Cepacol Lozenge) 1 each MUCOUS MEM Q2H PRN PRN Reason: Sore Throat Bisacodyl (Dulcolax) 10 mg RECTAL DAILY PRN PRN Reason: Constipation Budesonide (Pulmicort) 1 mg INHALATION RT-BID [facility] Last Admin: 12/09/17 07:45 Dose: 1 mg Escitalopram Oxalate (Lexapro) 10 mg PO HS [facility] Last Admin: 12/08/17 20:33 Dose: 10 mg Piperacillin/Tazobactam/ (Dextrose 3.375 gm/ IV Solution) 50 mls @ 12.5 mls/hr IVPB Q8HR [facility] Last Admin: 12/09/17 08:16 Dose: 12.5 mls/hr Sodium Chloride (Saline 0.9%) 1,000 mls @ 20 mls/hr IV .Q24H [facility] Last Admin: 12/09/17 08:17 Dose: 20 mls/hr Insulin Aspart (Novolog) 0 unit SQ ACHS [facility] PRN Reason: Protocol Last Admin: 12/09/17 12:23 Dose: Not Given Magnesium Hydroxide (Milk Of Magnesia) 2,400 mg PO BID PRN PRN Reason: Constipation Metoprolol Tartrate (Lopressor) 50 mg PO BID [facility] Last Admin: 12/09/17 08:13 Dose: 50 mg Miscellaneous Information (Magnesium Per Protocol) 1 each MISCELLANE DAILY PRN ; Protocol PRN Reason: Per Protocol Miscellaneous Information (Phosphorus Per Protocol) 1 each MISCELLANE DAILY PRN ; Protocol PRN Reason: Per Protocol Miscellaneous Information (Potassium Per Protocol) 1 each MISCELLANE DAILY PRN ; Protocol PRN Reason: Per Protocol Ondansetron HCl (Zofran) 4 mg IVP Q6HR PRN PRN Reason: Nausea And Vomiting Pantoprazole Sodium (Protonix) 40 mg PO AC-BRKFST [facility] Last Admin: 12/09/17 08:11 Dose: 40 mg Senna/Docusate Sodium (Senokot-S) 2 each PO HS [facility] Last Admin: 12/08/17 20:37 Dose: 2 each Sodium Chloride (Saline Flush) 10 ml IV BID [facility] Last Admin: 12/09/17 08:13 Dose: 10 ml 12/13/17 maintained on Merrem and vancomycin. BiPAP dependent. Worsening chest x-ray, chest CT reporting near complete collapse of left lung, enlarging moderate to large pericardial effusion. Echo pending. Multiple episodes of diarrhea. Atrial flutter with RVR, Review systems unable to be performed as patient on BiPAP Active Medications Generic Name Dose Route Start Last Admin Trade Name Freq PRN Reason Stop Dose Admin Hydrocodone Bitart/Acetaminophen 1 each 12/01/17 12:20 12/13/17 08:08 [place] 5-325 PO 1 each Q4HR PRN Administration MILD TO MODERATE Pain Hydrocodone Bitart/Acetaminophen 2 each 12/01/17 12:20 12/13/17 15:08 [place] 5-325 PO 2 each Q4HR PRN Administration MODERATE TO SEVERE Pain Albuterol/Ipratropium 3 ml 11/26/17 17:53 12/08/17 05:16 Duoneb 0.5 Mg-3 Mg/3 Ml Soln INHALATION 3 ml RT-Q2H PRN Administration Shortness Of Breath Or Wheezing Albuterol/Ipratropium 3 ml 12/03/17 08:00 12/13/17 16:02 Duoneb 0.5 Mg-3 Mg/3 Ml Soln INHALATION Not Given RT-QID [facility] Amiodarone HCl 200 mg 12/11/17 20:00 12/13/17 09:12 Cordarone PO 200 mg BID@0800,2000 [facility] Administration Aspirin 81 mg 11/26/17 10:15 12/13/17 09:13 Aspirin PO 81 mg DAILY [facility] Administration Atorvastatin Calcium 40 mg 11/26/17 09:00 12/13/17 09:13 Lipitor PO 40 mg DAILY [facility] Administration Benzocaine/Menthol 1 each 11/25/17 19:03 Cepacol Lozenge MUCOUS MEM Q2H PRN Sore Throat Bisacodyl 10 mg 11/26/17 17:52 12/12/17 17:45 Dulcolax RECTAL 10 mg DAILY PRN Administration Constipation Budesonide 1 mg 12/01/17 20:00 12/13/17 07:46 Pulmicort INHALATION 1 mg RT-BID [facility] Administration Escitalopram Oxalate 10 mg 12/07/17 21:00 12/12/17 20:16 Lexapro PO 10 mg HS [facility] Administration Heparin Sodium (Porcine) 5,000 unit 12/10/17 16:00 12/13/17 09:14 Heparin SQ 5,000 unit Q8HR [facility] Administration Sodium Chloride 1,000 mls @ 20 mls/hr 12/06/17 10:45 12/13/17 09:49 Saline 0.9% IV 20 mls/hr .Q24H [facility] Administration Meropenem 1 gm/ Sodium 100 mls @ 100 mls/hr 12/09/17 22:00 12/13/17 09:46 Chloride IVPB 100 mls/hr Q8HR [facility] Administration Vancomycin HCl 1,750 mg/ 250 mls @ 125 mls/hr 12/13/17 14:00 12/13/17 14:15 Sodium Chloride IVPB 125 mls/hr Q12HR@0000,1200 [facility] Administration Insulin Aspart 0 unit 12/02/17 21:00 12/13/17 12:34 Novolog SQ Not Given ACHS [facility] Protocol Lactobacillus Acidoph/Bulgaricus 1 each 12/13/17 16:00 Lactinex PO TID [facility] Magnesium Hydroxide 2,400 mg 11/26/17 17:53 Milk Of Magnesia PO BID PRN Constipation Metoprolol Tartrate 50 mg 12/11/17 22:00 12/13/17 09:13 Lopressor PO 50 mg BID@1000,2200 [facility] Administration Miscellaneous Information 1 each 11/25/17 19:03 Magnesium Per Protocol MISCELLANE DAILY PRN Per Protocol Protocol Miscellaneous Information 1 each 11/25/17 19:03 Phosphorus Per Protocol MISCELLANE DAILY PRN Per Protocol Protocol Miscellaneous Information 1 each 11/25/17 19:03 Potassium Per Protocol MISCELLANE DAILY PRN Per Protocol Protocol Ondansetron HCl 4 mg 11/25/17 19:03 Zofran IVP Q6HR PRN Nausea And Vomiting Pantoprazole Sodium 40 mg 12/05/17 07:30 12/13/17 09:13 Protonix PO 40 mg AC-BRKFST [facility] Administration Senna/Docusate Sodium 2 each 11/26/17 21:00 12/12/17 20:16 Senokot-S PO 2 each HS [facility] Administration Sodium Chloride 10 ml 11/25/17 21:00 12/13/17 09:49 Saline Flush IV 10 ml BID [facility] Administration 12/14/17 maintained on Merrem and vancomycin per infectious disease .remains BiPAP dependent. Chest x-ray reporting persistent significant left lung collapse with minimal improvement. Scheduled for bronchoscopy this afternoon. INR 2.1, receiving FFP. No diarrhea today. Telemetry atrial fibrillation/ flutter, heart rate 110s to 120s. 12/15/2017 developed worsened respiratory distress despite BiPAP, diuretics, antiarrhythmics, intubated last night. Received 2 more units of FFP this morning, underwent bronchoscopy this morning; mucous plug discovered in the left lower lobe. Pleural Cultures pending. Maintained on FiO2 45%/+5 of PEEP. Continues on IV antibiotics. Currently on 2-1/2 mics of Levophed and diprovan drips. Atrial tachycardia, heart rate in the 130s. Amiodarone discontinued as per cardiology. Developed increased bleeding from wound VAC with turning during bath-Anticoagulation placed on hold. Afebrile. Objective - Vital Signs Vital signs: Vital Signs Temp 98.1 F 12/15/17 16:00 Pulse 86 12/15/17 17:00 Resp 14 12/15/17 17:00 BP 94/43 12/15/17 11:00 Pulse Ox 100 12/15/17 17:00 Intake & Output 12/14/17 12/15/17 12/15/17 18:59 06:59 18:59 Intake Total 1398 1050 2119 Output Total 795 920 279 Balance 005 684 7861 Weight 100.6 kg 103 kg 103 kg Intake: IV 795 770 0066 FFP 529 600 Meropenem 1 gm In Sodium 100 150 100 Chloride 0.9% 100 ml @ 100 mls/hr IVPB Q8HR [facility] Rx#:[id number] Potassium Phosphate 10 200 mmol In Sodium Chloride 0 .9% 100 ml @ 50 mls/hr IV Q2H [facility] Rx#:[id number] Sodium Chloride 0.9% 1, 240 240 160 000 ml @ 20 mls/hr IV . Q24H [facility] Rx#:[id number] Vancomycin 1,750 mg In 250 Sodium Chloride 0.9% 250 ml @ 125 mls/hr IVPB Q12HR@0000,1200 [facility] Rx#: [id number] Intake, IV Titration 310 200 Amount Heparin Sod,Pork in 0.45% 110 NaCl 25,000 unit In 0.45 % NaCl 1 500ml.bag @ 9. 941 UNITS/KG/HR 20 mls/hr IV .Q24H [facility] Rx#: [id number] Propofol 1,000 mg In 200 200 Empty Bag 1 bag @ Titrate IV .Q0M [facility] Rx#: [id number] Tube Feeding 100 180 Blood Product 529 0 629 Ffp 24 Cp2d Unit 238 [id number] Ffp 24 Cpd Unit 297 [id number] Ffp 24 Cpd Unit 291 [id number] Ffp 24 Cpd Unit 0 332 [id number] Output: Drainage 150 225 Medial Chest Incision - 150 225 Woundvac Urine 645 695 279 Other: Voiding Method Indwelling Catheter Indwelling Catheter Indwelling Catheter ABP, PAP, CO, CI - Last Documented Arterial Blood Pressure 127/48 Pulmonary Artery Pressure 38/33 Cardiac Output 5.8 Cardiac Index 2.9 - Exam PHYSICAL EXAM: VITAL SIGNS: As above GENERAL: Sitting up in bed, sedated on mechanical ventilation HEENT: Conjunctivae normal. eyes normal. NECK: No JVD. No thyroid enlargement. No LNs CARDIOVASCULAR: S1, S2 muffled. tachycardic ,no murmur. RESPIRATION: Breath sounds diminished in the bases. Scattered rhonchi. Left pleural chest tube with serosanguineous drainage .Sternal wound with wound vac present. ABDOMEN: Soft . No guarding. no masses palpable.Bowel sounds heard. Extremities: Positive edema PSYCHIATRY:/NERVOUS SYSTEM: Unable to assess as patient sedated and on mechanical ventilation Skin: Midsternal incision open,large amount of serosanguineous drainage,with packing, right medial buttock & right buttock skin tears, type II - III, Right lower arm Skin tear,type II, Lower back shearing injury with sloughing, excoriation, erythema. Microbiology 12/14/17 21:30 Sputum Gram Stain - Preliminary 12/14/17 21:30 Sputum Sputum Culture - Preliminary 12/10/17 10:50 Chest Anaerobic Culture - Final 12/10/17 10:40 Chest Anaerobic Culture - Final 12/10/17 10:45 Chest Anaerobic Culture - Final 12/13/17 05:27 Urine,Catheterized Urine Culture - Final 12/10/17 10:40 Chest Gram Stain - Final 12/10/17 10:40 Chest Wound Culture - Final Serratia marcescens 12/10/17 10:45 Chest Gram Stain - Final 12/10/17 10:45 Chest Tissue Culture - Final Serratia marcescens 12/10/17 10:50 Chest Gram Stain - Final 12/10/17 10:50 Chest Tissue Culture - Final Serratia marcescens 12/10/17 10:50 Chest Acid Fast Bacilli Smear - Final 12/10/17 10:50 Chest Acid Fast Bacilli Culture - Preliminary 12/10/17 10:45 Chest Acid Fast Bacilli Smear - Final 12/10/17 10:45 Chest Acid Fast Bacilli Culture - Preliminary 12/10/17 10:50 Chest Fungal Culture - Preliminary 12/10/17 10:40 Chest Fungal Culture - Preliminary 12/10/17 10:45 Chest Fungal Culture - Preliminary 12/07/17 15:40 Chest Gram Stain - Final 12/07/17 15:40 Chest Wound Culture - Final Serratia marcescens 12/04/17 10:00 Urine,Voided Urine Culture - Final Escherichia coli Serratia marcescens 11/26/17 04:00 Sputum Gram Stain - Final 11/26/17 04:00 Sputum Sputum Culture - Final - Labs CBC & Chem 7: 12/15/17 04:45 12/15/17 14:30 Labs: Abnormal Lab Results - Last 24 Hours (Table) 11/25/17 11/25/17 11/25/17 Range/Units 08:41 08:44 09:41 WBC (3.8-10.6) k/uL RBC (3.80-5.40) m/uL Hgb (11.4-16.0) gm/dL Hct (34.0-46.0) % MCHC (31.0-37.0) g/dL RDW (11.5-15.5) % Neutrophils # (1.3-7.7) k/uL PT (9.0-12.0) sec INR (<1.2) APTT (22.0-30.0) sec ABG pH (7.35-7.45) ABG pCO2 46 H (35-45) mmHg ABG pO2 >420 H >420 H 308 H (83-108) mmHg ABG HCO3 26 H 26 H (21-25) mmol/L ABG Total CO2 28 H 27 H 27 H (19-24) mmol/L ABG O2 Saturation 100.0 H 100.0 H 100.0 H (94-97) % ABG Hematocrit 22 L 22 L 22 L (34.0-46.0) % ABG Potassium 4.6 H 4.6 H (3.4-4.5) mmol/L ABG Ionized Calcium (4.5-5.3) mg/dL ABG Glucose 105 H 105 H 111 H (75-99) mg/dL ABG Lactic Acid (0.5-1.6) mmol/L Hemoglobin 7.0 L* 7.0 L* 7.3 L (11.4-16.0) gm/dL Potassium (3.5-5.1) mmol/L Carbon Dioxide (22-30) mmol/L BUN (7-17) mg/dL Glucose (74-99) mg/dL POC Glucose (mg/dL) (75-99) mg/dL Calcium (8.4-10.2) mg/dL Phosphorus (2.5-4.5) mg/dL Magnesium (1.6-2.3) mg/dL AST (14-36) U/L Total Protein (6.3-8.2) g/dL Albumin (3.5-5.0) g/dL Arterial Blood Potassium 4.6 H 4.6 H (3.4-4.5) mmol/L Arterial Blood Glucose 105 H 105 H 111 H (75-99) mg/dL Vancomycin Trough ug/mL 11/25/17 11/25/17 11/25/17 Range/Units 10:09 10:21 11:05 WBC (3.8-10.6) k/uL RBC (3.80-5.40) m/uL Hgb (11.4-16.0) gm/dL Hct (34.0-46.0) % MCHC (31.0-37.0) g/dL RDW (11.5-15.5) % Neutrophils # (1.3-7.7) k/uL PT (9.0-12.0) sec INR (<1.2) APTT (22.0-30.0) sec ABG pH 7.34 L 7.28 L (7.35-7.45) ABG pCO2 54 H (35-45) mmHg ABG pO2 305 H >420 H 396 H (83-108) mmHg ABG HCO3 (21-25) mmol/L ABG Total CO2 26 H 27 H 26 H (19-24) mmol/L ABG O2 Saturation 100.0 H 100.0 H 100.0 H (94-97) % ABG Hematocrit 24 L 27 L 26 L (34.0-46.0) % ABG Potassium 4.9 H (3.4-4.5) mmol/L ABG Ionized Calcium 4.0 L 4.1 L (4.5-5.3) mg/dL ABG Glucose 112 H 127 H 146 H (75-99) mg/dL ABG Lactic Acid 2.0 H 1.9 H (0.5-1.6) mmol/L Hemoglobin 7.9 L 8.9 L 8.6 L (11.4-16.0) gm/dL Potassium (3.5-5.1) mmol/L Carbon Dioxide (22-30) mmol/L BUN (7-17) mg/dL Glucose (74-99) mg/dL POC Glucose (mg/dL) (75-99) mg/dL Calcium (8.4-10.2) mg/dL Phosphorus (2.5-4.5) mg/dL Magnesium (1.6-2.3) mg/dL AST (14-36) U/L Total Protein (6.3-8.2) g/dL Albumin (3.5-5.0) g/dL Arterial Blood Potassium 4.9 H (3.4-4.5) mmol/L Arterial Blood Glucose 112 H 127 H 146 H (75-99) mg/dL Vancomycin Trough ug/mL 11/25/17 11/25/17 11/25/17 Range/Units 11:38 12:12 12:49 WBC (3.8-10.6) k/uL RBC (3.80-5.40) m/uL Hgb (11.4-16.0) gm/dL Hct (34.0-46.0) % MCHC (31.0-37.0) g/dL RDW (11.5-15.5) % Neutrophils # (1.3-7.7) k/uL PT (9.0-12.0) sec INR (<1.2) APTT (22.0-30.0) sec ABG pH 7.31 L 7.33 L (7.35-7.45) ABG pCO2 50 H (35-45) mmHg ABG pO2 335 H 289 H 405 H (83-108) mmHg ABG HCO3 (21-25) mmol/L ABG Total CO2 27 H 27 H 25 H (19-24) mmol/L ABG O2 Saturation 100.0 H 100.0 H 100.0 H (94-97) % ABG Hematocrit 25 L 26 L 24 L (34.0-46.0) % ABG Potassium 5.0 H 4.7 H 4.7 H (3.4-4.5) mmol/L ABG Ionized Calcium 4.2 L 4.3 L 4.1 L (4.5-5.3) mg/dL ABG Glucose 169 H 163 H 165 H (75-99) mg/dL ABG Lactic Acid 1.9 H 2.2 H* 2.2 H* (0.5-1.6) mmol/L Hemoglobin 8.3 L 8.4 L 7.9 L (11.4-16.0) gm/dL Potassium (3.5-5.1) mmol/L Carbon Dioxide (22-30) mmol/L BUN (7-17) mg/dL Glucose (74-99) mg/dL POC Glucose (mg/dL) (75-99) mg/dL Calcium (8.4-10.2) mg/dL Phosphorus (2.5-4.5) mg/dL Magnesium (1.6-2.3) mg/dL AST (14-36) U/L Total Protein (6.3-8.2) g/dL Albumin (3.5-5.0) g/dL Arterial Blood Potassium 5.0 H 4.7 H 4.7 H (3.4-4.5) mmol/L Arterial Blood Glucose 169 H 163 H 165 H (75-99) mg/dL Vancomycin Trough ug/mL 11/25/17 11/25/17 11/25/17 Range/Units 14:02 15:19 15:53 WBC (3.8-10.6) k/uL RBC (3.80-5.40) m/uL Hgb (11.4-16.0) gm/dL Hct (34.0-46.0) % MCHC (31.0-37.0) g/dL RDW (11.5-15.5) % Neutrophils # (1.3-7.7) k/uL PT (9.0-12.0) sec INR (<1.2) APTT (22.0-30.0) sec ABG pH 7.31 L 7.29 L 7.28 L (7.35-7.45) ABG pCO2 51 H 52 H 46 H (35-45) mmHg ABG pO2 >420 H >420 H 390 H (83-108) mmHg ABG HCO3 (21-25) mmol/L ABG Total CO2 27 H 27 H (19-24) mmol/L ABG O2 Saturation 100.0 H 100.0 H 100.0 H (94-97) % ABG Hematocrit 27 L 25 L 21 L (34.0-46.0) % ABG Potassium (3.4-4.5) mmol/L ABG Ionized Calcium 3.9 L 6.5 H* 3.9 L (4.5-5.3) mg/dL ABG Glucose 100 H 117 H 158 H (75-99) mg/dL ABG Lactic Acid 2.0 H 1.9 H 3.1 H* (0.5-1.6) mmol/L Hemoglobin 8.8 L 8.0 L 6.9 L* (11.4-16.0) gm/dL Potassium (3.5-5.1) mmol/L Carbon Dioxide (22-30) mmol/L BUN (7-17) mg/dL Glucose (74-99) mg/dL POC Glucose (mg/dL) (75-99) mg/dL Calcium (8.4-10.2) mg/dL Phosphorus (2.5-4.5) mg/dL Magnesium (1.6-2.3) mg/dL AST (14-36) U/L Total Protein (6.3-8.2) g/dL Albumin (3.5-5.0) g/dL Arterial Blood Potassium (3.4-4.5) mmol/L Arterial Blood Glucose 100 H 117 H 158 H (75-99) mg/dL Vancomycin Trough ug/mL 11/25/17 11/25/17 12/15/17 Range/Units 16:46 17:37 04:45 WBC (3.8-10.6) k/uL RBC (3.80-5.40) m/uL Hgb (11.4-16.0) gm/dL Hct (34.0-46.0) % MCHC (31.0-37.0) g/dL RDW (11.5-15.5) % Neutrophils # (1.3-7.7) k/uL PT 18.1 H (9.0-12.0) sec INR 2.0 H (<1.2) APTT 115.4 H* (22.0-30.0) sec ABG pH 7.28 L (7.35-7.45) ABG pCO2 52 H (35-45) mmHg ABG pO2 416 H 198 H (83-108) mmHg ABG HCO3 (21-25) mmol/L ABG Total CO2 25 H 26 H (19-24) mmol/L ABG O2 Saturation 100.0 H 99.7 H (94-97) % ABG Hematocrit 28 L 24 L (34.0-46.0) % ABG Potassium (3.4-4.5) mmol/L ABG Ionized Calcium 3.9 L 4.0 L (4.5-5.3) mg/dL ABG Glucose 163 H 139 H (75-99) mg/dL ABG Lactic Acid 3.1 H* 2.8 H* (0.5-1.6) mmol/L Hemoglobin 9.1 L 7.8 L (11.4-16.0) gm/dL Potassium (3.5-5.1) mmol/L Carbon Dioxide (22-30) mmol/L BUN (7-17) mg/dL Glucose (74-99) mg/dL POC Glucose (mg/dL) (75-99) mg/dL Calcium (8.4-10.2) mg/dL Phosphorus (2.5-4.5) mg/dL Magnesium (1.6-2.3) mg/dL AST (14-36) U/L Total Protein (6.3-8.2) g/dL Albumin (3.5-5.0) g/dL Arterial Blood Potassium (3.4-4.5) mmol/L Arterial Blood Glucose 163 H 139 H (75-99) mg/dL Vancomycin Trough ug/mL 12/15/17 12/15/17 12/15/17 Range/Units 04:45 04:45 04:45 WBC 23.6 H (3.8-10.6) k/uL RBC 2.79 L (3.80-5.40) m/uL Hgb 7.6 L D (11.4-16.0) gm/dL Hct 25.0 L (34.0-46.0) % MCHC 30.6 L (31.0-37.0) g/dL RDW 19.8 H (11.5-15.5) % Neutrophils # 21.3 H (1.3-7.7) k/uL PT (9.0-12.0) sec INR (<1.2) APTT (22.0-30.0) sec ABG pH (7.35-7.45) ABG pCO2 (35-45) mmHg ABG pO2 (83-108) mmHg ABG HCO3 (21-25) mmol/L ABG Total CO2 (19-24) mmol/L ABG O2 Saturation (94-97) % ABG Hematocrit (34.0-46.0) % ABG Potassium (3.4-4.5) mmol/L ABG Ionized Calcium (4.5-5.3) mg/dL ABG Glucose (75-99) mg/dL ABG Lactic Acid (0.5-1.6) mmol/L Hemoglobin (11.4-16.0) gm/dL Potassium (3.5-5.1) mmol/L Carbon Dioxide 33 H (22-30) mmol/L BUN 41 H (7-17) mg/dL Glucose 104 H (74-99) mg/dL POC Glucose (mg/dL) (75-99) mg/dL Calcium 8.1 L (8.4-10.2) mg/dL Phosphorus 2.3 L (2.5-4.5) mg/dL Magnesium 2.4 H (1.6-2.3) mg/dL AST 52 H (14-36) U/L Total Protein 5.3 L (6.3-8.2) g/dL Albumin 2.4 L (3.5-5.0) g/dL Arterial Blood Potassium (3.4-4.5) mmol/L Arterial Blood Glucose (75-99) mg/dL Vancomycin Trough ug/mL 12/15/17 12/15/17 12/15/17 Range/Units 05:56 08:16 11:30 WBC (3.8-10.6) k/uL RBC (3.80-5.40) m/uL Hgb (11.4-16.0) gm/dL Hct (34.0-46.0) % MCHC (31.0-37.0) g/dL RDW (11.5-15.5) % Neutrophils # (1.3-7.7) k/uL PT (9.0-12.0) sec INR (<1.2) APTT (22.0-30.0) sec ABG pH 7.50 H (7.35-7.45) ABG pCO2 (35-45) mmHg ABG pO2 123 H (83-108) mmHg ABG HCO3 33 H (21-25) mmol/L ABG Total CO2 35 H (19-24) mmol/L ABG O2 Saturation 99.4 H (94-97) % ABG Hematocrit (34.0-46.0) % ABG Potassium (3.4-4.5) mmol/L ABG Ionized Calcium (4.5-5.3) mg/dL ABG Glucose (75-99) mg/dL ABG Lactic Acid (0.5-1.6) mmol/L Hemoglobin (11.4-16.0) gm/dL Potassium (3.5-5.1) mmol/L Carbon Dioxide (22-30) mmol/L BUN (7-17) mg/dL Glucose (74-99) mg/dL POC Glucose (mg/dL) 108 H (75-99) mg/dL Calcium (8.4-10.2) mg/dL Phosphorus (2.5-4.5) mg/dL Magnesium (1.6-2.3) mg/dL AST (14-36) U/L Total Protein (6.3-8.2) g/dL Albumin (3.5-5.0) g/dL Arterial Blood Potassium (3.4-4.5) mmol/L Arterial Blood Glucose (75-99) mg/dL Vancomycin Trough 30.6 H* ug/mL 12/15/17 Range/Units 14:30 WBC (3.8-10.6) k/uL RBC (3.80-5.40) m/uL Hgb (11.4-16.0) gm/dL Hct (34.0-46.0) % MCHC (31.0-37.0) g/dL RDW (11.5-15.5) % Neutrophils # (1.3-7.7) k/uL PT (9.0-12.0) sec INR (<1.2) APTT (22.0-30.0) sec ABG pH (7.35-7.45) ABG pCO2 (35-45) mmHg ABG pO2 (83-108) mmHg ABG HCO3 (21-25) mmol/L ABG Total CO2 (19-24) mmol/L ABG O2 Saturation (94-97) % ABG Hematocrit (34.0-46.0) % ABG Potassium (3.4-4.5) mmol/L ABG Ionized Calcium (4.5-5.3) mg/dL ABG Glucose (75-99) mg/dL ABG Lactic Acid (0.5-1.6) mmol/L Hemoglobin (11.4-16.0) gm/dL Potassium 3.4 L (3.5-5.1) mmol/L Carbon Dioxide (22-30) mmol/L BUN (7-17) mg/dL Glucose (74-99) mg/dL POC Glucose (mg/dL) (75-99) mg/dL Calcium (8.4-10.2) mg/dL Phosphorus (2.5-4.5) mg/dL Magnesium (1.6-2.3) mg/dL AST (14-36) U/L Total Protein (6.3-8.2) g/dL Albumin (3.5-5.0) g/dL Arterial Blood Potassium (3.4-4.5) mmol/L Arterial Blood Glucose (75-99) mg/dL Vancomycin Trough ug/mL Microbiology - Last 24 Hours (Table) 12/14/17 21:30 Gram Stain - Preliminary Sputum Sputum Culture - Preliminary 12/10/17 10:50 Anaerobic Culture - Final Chest Assessment and Plan Assessment: 1. Status post CABG with mitral valve replacement 2. Acute blood loss anemia with massive blood transfusions postoperatively, in a patient with history of GI bleed 3. Hypertension 4. Left subclavian stenosis 5. Proximal atrial fibrillation/flutter status post cardioversion with recurrence of atrial fibrillation 6. Acute Hypoxic respiratory failure, Re intubated. 7. Obesity, BMI 41.6 8. S/P PICC line placement 9. 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 Acute UTI Serratia marcescens, E. coli 11. Bilateral pleural effusions, improved with diuretics. Possible aspiration pneumonia, possible fluid overload. 12. Sternal wound debridement, culture growing Serratia marcescens, placement of wound VAC. 13. Pressure ulceration of back and buttocks, stage III 14. Diarrhea, ruling out C. difficile colitis. 15. Status post bronchoscopy with left lower lobe mucous plug discovered, cultures pending Plan: Continue on current medication regime , amiodarone, metoprolol , monitoring and symptomatic treatment. Bronchoscopy culture pending. Maintain IV antibiotics, wound care as per infectious disease. Continue nebulized bronchodilators, IV steroids. Sternal wound flap grafting pending for next week. Prognosis guarded given multiple complex medical issues per Further recommendations to follow. The impression and plan of care has been dictated as directed. : I performed a history and examination of this patient, discussed the same with the dictator. I agree with the dictator's note ,documented as a scribe. Any additional findings or plans will be noted.
[2017-12-15] MEDS ORDERED: ALBUMIN HUMAN 5% 250 ML in EMPTY BAG 1 BAG IVPB STA (19:05)
[2017-12-15] MEDS: SENNOSIDES-DOCUSATE SODIUM 1 EACH TAB PO SCH (20:15)
[2017-12-15] MEDS: ESCITALOPRAM 10 MG TAB PO SCH (20:15)
[2017-12-15] MEDS: POTASSIUM BICARBONATE/CIT AC 20 MEQ TABLET.EFF NG-TUBE SCH ×2 (20:15→21:55)
--- NOTE | 2017-12-15 23:40 | P.PN ---
Subjective Progress Note Date: 12/15/17 Principal diagnosis: Sternal wound dehiscence Pleasant 67-year-old female who has an extensive past medical history who is now 14 days postoperative from her open heart procedure it which point in time a mitral valve placement occurred, reverse saphenous vein coronary artery bypass grafting 1 to obtuse marginal, Maze procedure and ligation of the left atrial appendage all occurred interoperatively left ventricular wall tear occurred and was repaired. The patient has a known history of multiple medical troubles before her surgery that included her obesity, COPD and marked deconditioning. Patient has had difficulties recently that included urinary tract infection with E. coli and Serratia and has been treated with intravenous antibiotic therapy with Zosyn. She was having some improvement but then developed dehiscence of her sternal wound and there are plans for surgical debridement tomorrow wound culture showing gram-negative bacilli and with at the infectious diseases consultation was requested. The patient continues to have significant respiratory difficulties and is currently on BiPAP for support. Postoperatively the patient was hemodynamically unstable which made even turning of the patient not possible which has resulted in unavoidable areas of skin breakdown, that are now treatable given her improvement 12/10/2017 reveals the patient to be postoperative from the sternal wound debridement. The surgical note as well as discussion with the surgical team reveals evidence of poor bone quality and all of the sternal wires had pulled through her bony areas. Negative pressure therapy is in place. She is tolerating this well. Plastic surgery consult has been requested for reconstruction of her chest in the near future. Gram-negative bacilli growing from the sternal wound. She is quite comfortable after procedure, chest tube was placed of the left cavity and this is improved some left lung function and she seems less short of breath. The daughter is present and her questions were answered. 12/11/2017 reveals the patient to have had some respiratory distress today and is back on BiPAP at this time. She relates that her pain is under much significant control. Been no other new acute complaints are being made. 12/13/2017 the patient remains in the ICU she is currently on BiPAP but relates that she is quite comfortable. We will work with the nursing staff to change her VAC dressing at this time. await the plastic surgery timeline. 12/15/2017 reveals the patient to remain in intensive care unit, her status has worsened and that she developed flash pulmonary edema and respiratory failure requiring reintubation sedation mechanical ventilation. She underwent bronchoscopy today for removal of mucous plugs and to help with the collapsed left lower lobe. The patient has require some vasopressor support but is more stable this afternoon than earlier. She is sedated and comfortable. She has significant decline of hemoglobin is 7.6. Anticoagulation was held. Is being closely monitored by surgery and they await the plastic surgery intervention. Objective - Vital Signs Vital signs: Vital Signs Temp 98.6 F 12/15/17 20:00 Pulse 76 12/15/17 23:00 Resp 15 12/15/17 23:00 BP 94/43 12/15/17 11:00 Pulse Ox 99 12/15/17 23:00 Intake & Output 12/15/17 12/15/17 12/16/17 06:59 18:59 06:59 Intake Total 1050 2239 320 Output Total 920 324 100 Balance 130 1915 220 Weight 103 kg 103 kg Intake: IV 640 1150 80 FFP 600 Meropenem 1 gm In Sodium 150 100 Chloride 0.9% 100 ml @ 100 mls/hr IVPB Q8HR [facility] Rx#:[id number] Potassium Phosphate 10 200 mmol In Sodium Chloride 0 .9% 100 ml @ 50 mls/hr IV Q2H [facility] Rx#:[id number] Sodium Chloride 0.9% 1, 240 200 80 000 ml @ 20 mls/hr IV . Q24H [facility] Rx#:[id number] Vancomycin 1,750 mg In 250 Sodium Chloride 0.9% 250 ml @ 125 mls/hr IVPB Q12HR@0000,1200 [facility] Rx#: [id number] Intake, IV Titration 310 200 Amount Heparin Sod,Pork in 0.45% 110 NaCl 25,000 unit In 0.45 % NaCl 1 500ml.bag @ 9. 941 UNITS/KG/HR 20 mls/hr IV .Q24H [facility] Rx#: [id number] Propofol 1,000 mg In 200 200 Empty Bag 1 bag @ Titrate IV .Q0M [facility] Rx#: [id number] Tube Feeding 100 260 240 Blood Product 0 629 Ffp 24 Cpd Unit 297 [id number] Ffp 24 Cpd Unit 0 332 [id number] Output: Drainage 225 Medial Chest Incision - 225 Woundvac Urine 695 324 100 Other: Voiding Method Indwelling Catheter Indwelling Catheter Indwelling Catheter ABP, PAP, CO, CI - Last Documented Arterial Blood Pressure 108/69 Pulmonary Artery Pressure 38/33 Cardiac Output 5.8 Cardiac Index 2.9 - Exam Obese 67-year-old woman who is now intubated sedated and mechanically ventilated HEENT: Anicteric conjunctiva are pink and moist nasal mucosa grossly intact without significant lesions, there is no thrush. Oral mucosa is dry but no swapnil lesions could be seen Neck: The neck is supple without significant lymphadenopathy or thyromegaly. Lungs: Symmetrical air entry is noted. There is scattered crackles but no swapnil bronchial sounds Heart: Irregular with an audible S1 and S2 soft S4 no audible murmur no click or rub Chest: The patient's mid sternotomy incision has now been debrided and negative pressure therapy is in place. There is no significant tenderness. The drainage is being suctioned into the canister of the negative pressure system. There was some play drainage that is now more clear Abdomen: Obese, Positive bowel sounds soft and nontender without palpable masses or organomegaly. There was no guarding or rebound. Extremities: The upper and lower extremities have evidence of edema harvest site is intact there is some bruising that is noted especially on the left groin area. IV sites are intact. Skin: There are no new lesions that are seen and evaluated skin, surgery has requested the patient not be turned and consult. The buttocks ulcerations are not evaluated today. Neuro: Sedated while she is being mechanically ventilated - Labs CBC & Chem 7: 12/15/17 04:45 12/15/17 14:30 Labs: Abnormal Lab Results - Last 24 Hours (Table) 11/25/17 11/25/17 11/25/17 Range/Units 08:41 08:44 09:41 WBC (3.8-10.6) k/uL RBC (3.80-5.40) m/uL Hgb (11.4-16.0) gm/dL Hct (34.0-46.0) % MCHC (31.0-37.0) g/dL RDW (11.5-15.5) % Neutrophils # (1.3-7.7) k/uL PT (9.0-12.0) sec INR (<1.2) APTT (22.0-30.0) sec ABG pH (7.35-7.45) ABG pCO2 46 H (35-45) mmHg ABG pO2 >420 H >420 H 308 H (83-108) mmHg ABG HCO3 26 H 26 H (21-25) mmol/L ABG Total CO2 28 H 27 H 27 H (19-24) mmol/L ABG O2 Saturation 100.0 H 100.0 H 100.0 H (94-97) % ABG Hematocrit 22 L 22 L 22 L (34.0-46.0) % ABG Potassium 4.6 H 4.6 H (3.4-4.5) mmol/L ABG Ionized Calcium (4.5-5.3) mg/dL ABG Glucose 105 H 105 H 111 H (75-99) mg/dL ABG Lactic Acid (0.5-1.6) mmol/L Hemoglobin 7.0 L* 7.0 L* 7.3 L (11.4-16.0) gm/dL Potassium (3.5-5.1) mmol/L Carbon Dioxide (22-30) mmol/L BUN (7-17) mg/dL Glucose (74-99) mg/dL POC Glucose (mg/dL) (75-99) mg/dL Calcium (8.4-10.2) mg/dL Phosphorus (2.5-4.5) mg/dL Magnesium (1.6-2.3) mg/dL AST (14-36) U/L Total Protein (6.3-8.2) g/dL Albumin (3.5-5.0) g/dL Arterial Blood Potassium 4.6 H 4.6 H (3.4-4.5) mmol/L Arterial Blood Glucose 105 H 105 H 111 H (75-99) mg/dL Vancomycin Trough ug/mL 11/25/17 11/25/17 11/25/17 Range/Units 10:09 10:21 11:05 WBC (3.8-10.6) k/uL RBC (3.80-5.40) m/uL Hgb (11.4-16.0) gm/dL Hct (34.0-46.0) % MCHC (31.0-37.0) g/dL RDW (11.5-15.5) % Neutrophils # (1.3-7.7) k/uL PT (9.0-12.0) sec INR (<1.2) APTT (22.0-30.0) sec ABG pH 7.34 L 7.28 L (7.35-7.45) ABG pCO2 54 H (35-45) mmHg ABG pO2 305 H >420 H 396 H (83-108) mmHg ABG HCO3 (21-25) mmol/L ABG Total CO2 26 H 27 H 26 H (19-24) mmol/L ABG O2 Saturation 100.0 H 100.0 H 100.0 H (94-97) % ABG Hematocrit 24 L 27 L 26 L (34.0-46.0) % ABG Potassium 4.9 H (3.4-4.5) mmol/L ABG Ionized Calcium 4.0 L 4.1 L (4.5-5.3) mg/dL ABG Glucose 112 H 127 H 146 H (75-99) mg/dL ABG Lactic Acid 2.0 H 1.9 H (0.5-1.6) mmol/L Hemoglobin 7.9 L 8.9 L 8.6 L (11.4-16.0) gm/dL Potassium (3.5-5.1) mmol/L Carbon Dioxide (22-30) mmol/L BUN (7-17) mg/dL Glucose (74-99) mg/dL POC Glucose (mg/dL) (75-99) mg/dL Calcium (8.4-10.2) mg/dL Phosphorus (2.5-4.5) mg/dL Magnesium (1.6-2.3) mg/dL AST (14-36) U/L Total Protein (6.3-8.2) g/dL Albumin (3.5-5.0) g/dL Arterial Blood Potassium 4.9 H (3.4-4.5) mmol/L Arterial Blood Glucose 112 H 127 H 146 H (75-99) mg/dL Vancomycin Trough ug/mL 11/25/17 11/25/17 11/25/17 Range/Units 11:38 12:12 12:49 WBC (3.8-10.6) k/uL RBC (3.80-5.40) m/uL Hgb (11.4-16.0) gm/dL Hct (34.0-46.0) % MCHC (31.0-37.0) g/dL RDW (11.5-15.5) % Neutrophils # (1.3-7.7) k/uL PT (9.0-12.0) sec INR (<1.2) APTT (22.0-30.0) sec ABG pH 7.31 L 7.33 L (7.35-7.45) ABG pCO2 50 H (35-45) mmHg ABG pO2 335 H 289 H 405 H (83-108) mmHg ABG HCO3 (21-25) mmol/L ABG Total CO2 27 H 27 H 25 H (19-24) mmol/L ABG O2 Saturation 100.0 H 100.0 H 100.0 H (94-97) % ABG Hematocrit 25 L 26 L 24 L (34.0-46.0) % ABG Potassium 5.0 H 4.7 H 4.7 H (3.4-4.5) mmol/L ABG Ionized Calcium 4.2 L 4.3 L 4.1 L (4.5-5.3) mg/dL ABG Glucose 169 H 163 H 165 H (75-99) mg/dL ABG Lactic Acid 1.9 H 2.2 H* 2.2 H* (0.5-1.6) mmol/L Hemoglobin 8.3 L 8.4 L 7.9 L (11.4-16.0) gm/dL Potassium (3.5-5.1) mmol/L Carbon Dioxide (22-30) mmol/L BUN (7-17) mg/dL Glucose (74-99) mg/dL POC Glucose (mg/dL) (75-99) mg/dL Calcium (8.4-10.2) mg/dL Phosphorus (2.5-4.5) mg/dL Magnesium (1.6-2.3) mg/dL AST (14-36) U/L Total Protein (6.3-8.2) g/dL Albumin (3.5-5.0) g/dL Arterial Blood Potassium 5.0 H 4.7 H 4.7 H (3.4-4.5) mmol/L Arterial Blood Glucose 169 H 163 H 165 H (75-99) mg/dL Vancomycin Trough ug/mL 11/25/17 11/25/17 11/25/17 Range/Units 14:02 15:19 15:53 WBC (3.8-10.6) k/uL RBC (3.80-5.40) m/uL Hgb (11.4-16.0) gm/dL Hct (34.0-46.0) % MCHC (31.0-37.0) g/dL RDW (11.5-15.5) % Neutrophils # (1.3-7.7) k/uL PT (9.0-12.0) sec INR (<1.2) APTT (22.0-30.0) sec ABG pH 7.31 L 7.29 L 7.28 L (7.35-7.45) ABG pCO2 51 H 52 H 46 H (35-45) mmHg ABG pO2 >420 H >420 H 390 H (83-108) mmHg ABG HCO3 (21-25) mmol/L ABG Total CO2 27 H 27 H (19-24) mmol/L ABG O2 Saturation 100.0 H 100.0 H 100.0 H (94-97) % ABG Hematocrit 27 L 25 L 21 L (34.0-46.0) % ABG Potassium (3.4-4.5) mmol/L ABG Ionized Calcium 3.9 L 6.5 H* 3.9 L (4.5-5.3) mg/dL ABG Glucose 100 H 117 H 158 H (75-99) mg/dL ABG Lactic Acid 2.0 H 1.9 H 3.1 H* (0.5-1.6) mmol/L Hemoglobin 8.8 L 8.0 L 6.9 L* (11.4-16.0) gm/dL Potassium (3.5-5.1) mmol/L Carbon Dioxide (22-30) mmol/L BUN (7-17) mg/dL Glucose (74-99) mg/dL POC Glucose (mg/dL) (75-99) mg/dL Calcium (8.4-10.2) mg/dL Phosphorus (2.5-4.5) mg/dL Magnesium (1.6-2.3) mg/dL AST (14-36) U/L Total Protein (6.3-8.2) g/dL Albumin (3.5-5.0) g/dL Arterial Blood Potassium (3.4-4.5) mmol/L Arterial Blood Glucose 100 H 117 H 158 H (75-99) mg/dL Vancomycin Trough ug/mL 11/25/17 11/25/17 12/15/17 Range/Units 16:46 17:37 04:45 WBC (3.8-10.6) k/uL RBC (3.80-5.40) m/uL Hgb (11.4-16.0) gm/dL Hct (34.0-46.0) % MCHC (31.0-37.0) g/dL RDW (11.5-15.5) % Neutrophils # (1.3-7.7) k/uL PT 18.1 H (9.0-12.0) sec INR 2.0 H (<1.2) APTT 115.4 H* (22.0-30.0) sec ABG pH 7.28 L (7.35-7.45) ABG pCO2 52 H (35-45) mmHg ABG pO2 416 H 198 H (83-108) mmHg ABG HCO3 (21-25) mmol/L ABG Total CO2 25 H 26 H (19-24) mmol/L ABG O2 Saturation 100.0 H 99.7 H (94-97) % ABG Hematocrit 28 L 24 L (34.0-46.0) % ABG Potassium (3.4-4.5) mmol/L ABG Ionized Calcium 3.9 L 4.0 L (4.5-5.3) mg/dL ABG Glucose 163 H 139 H (75-99) mg/dL ABG Lactic Acid 3.1 H* 2.8 H* (0.5-1.6) mmol/L Hemoglobin 9.1 L 7.8 L (11.4-16.0) gm/dL Potassium (3.5-5.1) mmol/L Carbon Dioxide (22-30) mmol/L BUN (7-17) mg/dL Glucose (74-99) mg/dL POC Glucose (mg/dL) (75-99) mg/dL Calcium (8.4-10.2) mg/dL Phosphorus (2.5-4.5) mg/dL Magnesium (1.6-2.3) mg/dL AST (14-36) U/L Total Protein (6.3-8.2) g/dL Albumin (3.5-5.0) g/dL Arterial Blood Potassium (3.4-4.5) mmol/L Arterial Blood Glucose 163 H 139 H (75-99) mg/dL Vancomycin Trough ug/mL 12/15/17 12/15/17 12/15/17 Range/Units 04:45 04:45 04:45 WBC 23.6 H (3.8-10.6) k/uL RBC 2.79 L (3.80-5.40) m/uL Hgb 7.6 L D (11.4-16.0) gm/dL Hct 25.0 L (34.0-46.0) % MCHC 30.6 L (31.0-37.0) g/dL RDW 19.8 H (11.5-15.5) % Neutrophils # 21.3 H (1.3-7.7) k/uL PT (9.0-12.0) sec INR (<1.2) APTT (22.0-30.0) sec ABG pH (7.35-7.45) ABG pCO2 (35-45) mmHg ABG pO2 (83-108) mmHg ABG HCO3 (21-25) mmol/L ABG Total CO2 (19-24) mmol/L ABG O2 Saturation (94-97) % ABG Hematocrit (34.0-46.0) % ABG Potassium (3.4-4.5) mmol/L ABG Ionized Calcium (4.5-5.3) mg/dL ABG Glucose (75-99) mg/dL ABG Lactic Acid (0.5-1.6) mmol/L Hemoglobin (11.4-16.0) gm/dL Potassium (3.5-5.1) mmol/L Carbon Dioxide 33 H (22-30) mmol/L BUN 41 H (7-17) mg/dL Glucose 104 H (74-99) mg/dL POC Glucose (mg/dL) (75-99) mg/dL Calcium 8.1 L (8.4-10.2) mg/dL Phosphorus 2.3 L (2.5-4.5) mg/dL Magnesium 2.4 H (1.6-2.3) mg/dL AST 52 H (14-36) U/L Total Protein 5.3 L (6.3-8.2) g/dL Albumin 2.4 L (3.5-5.0) g/dL Arterial Blood Potassium (3.4-4.5) mmol/L Arterial Blood Glucose (75-99) mg/dL Vancomycin Trough ug/mL 12/15/17 12/15/17 12/15/17 Range/Units 05:56 08:16 11:30 WBC (3.8-10.6) k/uL RBC (3.80-5.40) m/uL Hgb (11.4-16.0) gm/dL Hct (34.0-46.0) % MCHC (31.0-37.0) g/dL RDW (11.5-15.5) % Neutrophils # (1.3-7.7) k/uL PT (9.0-12.0) sec INR (<1.2) APTT (22.0-30.0) sec ABG pH 7.50 H (7.35-7.45) ABG pCO2 (35-45) mmHg ABG pO2 123 H (83-108) mmHg ABG HCO3 33 H (21-25) mmol/L ABG Total CO2 35 H (19-24) mmol/L ABG O2 Saturation 99.4 H (94-97) % ABG Hematocrit (34.0-46.0) % ABG Potassium (3.4-4.5) mmol/L ABG Ionized Calcium (4.5-5.3) mg/dL ABG Glucose (75-99) mg/dL ABG Lactic Acid (0.5-1.6) mmol/L Hemoglobin (11.4-16.0) gm/dL Potassium (3.5-5.1) mmol/L Carbon Dioxide (22-30) mmol/L BUN (7-17) mg/dL Glucose (74-99) mg/dL POC Glucose (mg/dL) 108 H (75-99) mg/dL Calcium (8.4-10.2) mg/dL Phosphorus (2.5-4.5) mg/dL Magnesium (1.6-2.3) mg/dL AST (14-36) U/L Total Protein (6.3-8.2) g/dL Albumin (3.5-5.0) g/dL Arterial Blood Potassium (3.4-4.5) mmol/L Arterial Blood Glucose (75-99) mg/dL Vancomycin Trough 30.6 H* ug/mL 12/15/17 Range/Units 14:30 WBC (3.8-10.6) k/uL RBC (3.80-5.40) m/uL Hgb (11.4-16.0) gm/dL Hct (34.0-46.0) % MCHC (31.0-37.0) g/dL RDW (11.5-15.5) % Neutrophils # (1.3-7.7) k/uL PT (9.0-12.0) sec INR (<1.2) APTT (22.0-30.0) sec ABG pH (7.35-7.45) ABG pCO2 (35-45) mmHg ABG pO2 (83-108) mmHg ABG HCO3 (21-25) mmol/L ABG Total CO2 (19-24) mmol/L ABG O2 Saturation (94-97) % ABG Hematocrit (34.0-46.0) % ABG Potassium (3.4-4.5) mmol/L ABG Ionized Calcium (4.5-5.3) mg/dL ABG Glucose (75-99) mg/dL ABG Lactic Acid (0.5-1.6) mmol/L Hemoglobin (11.4-16.0) gm/dL Potassium 3.4 L (3.5-5.1) mmol/L Carbon Dioxide (22-30) mmol/L BUN (7-17) mg/dL Glucose (74-99) mg/dL POC Glucose (mg/dL) (75-99) mg/dL Calcium (8.4-10.2) mg/dL Phosphorus (2.5-4.5) mg/dL Magnesium (1.6-2.3) mg/dL AST (14-36) U/L Total Protein (6.3-8.2) g/dL Albumin (3.5-5.0) g/dL Arterial Blood Potassium (3.4-4.5) mmol/L Arterial Blood Glucose (75-99) mg/dL Vancomycin Trough ug/mL Microbiology - Last 24 Hours (Table) 12/15/17 10:40 Acid Fast Bacilli Culture - Preliminary Bronchial Washings - Left 12/15/17 10:40 Bronchial Washings Culture - Preliminary Bronchial Washings - Left 12/14/17 21:30 Gram Stain - Preliminary Sputum Sputum Culture - Preliminary 12/10/17 10:50 Anaerobic Culture - Final Chest Assessment and Plan (1) Severe mitral regurgitation Current Visit: Yes Status: Chronic Code(s): I34.0 - NONRHEUMATIC MITRAL ( VALVE) INSUFFICIENCY SNOMED Code(s): 57522034 (2) CAD (coronary artery disease) Current Visit: Yes Status: Chronic Code(s): I25.10 - ATHSCL HEART DISEASE OF [place] CORONARY ARTERY W/O ANG PCTRS SNOMED Code(s): 84667904 (3) Acute blood loss as cause of postoperative anemia Current Visit: Yes Status: Acute Code(s): D62 - ACUTE POSTHEMORRHAGIC ANEMIA SNOMED Code(s): 96225363332258520 (4) Pressure ulcer of contiguous region involving back and buttock, stage 3 Current Visit: Yes Status: Acute Code(s): L89.43 - PRESSR ULCER OF CONTIG SITE OF BACK, BUTTOCK AND HIP, STG 3 SNOMED Code(s): 846036863 (5) Sternal wound dehiscence Narrative/Plan: 67-year-old woman presents to Hospital for treatment of her severe mitral irritation. Underwent mitral valve replacement, coronary artery bypass grafting 1, Maze procedure and clipping of the left atrial appendage with a complication of the left ventricular wall tear. The patient has had a very protracted recovery she is now day 14 post operative and is still having difficulty with her respiratory status requiring BiPAP. The patient's nutritional status and underlying comorbidities have complicated her care. She now has evidence of the sternal dehiscence with evidence of gram negatives bacilli being found at the site. There is evidence of urinary tract infection with E. coli and Serratia. This Serratia species is somewhat resistant and consequently we'll alter the current antimicrobial therapy from Zosyn to meropenem to ensure coverage for other potential pathogens that are resistant that could be in the sternal wound while we await cultures. The patient will be going to the operating room tomorrow for debridement and wound VAC placement. The cultures were further direct the overall course of antibiotics. Urinary infection appears to be doing somewhat better. The patient fortunately is comfortable and doing well with her BiPAP. 12/10/2017 the patient is status post surgery and actually is feeling a bit better this afternoon than yesterday. Her pain is quite well controlled. She is not on BiPAP. She is less short of breath. Wound culture has verified the Serratia marcescens to the sternal wound. We'll constantly continue the current course of meropenem due to some of the resistance patterns or seeing with the species. Continue local care at this point time with the negative pressure system to the sternal wound. The plastic surgery consult is being requested for reconstruction of her chest. She will require a course of intravenous antibiotic therapy given her complex infection. Dual-lumen PICC is already in place. We'll repeat the discharge planners as to her place of rehab. 12/11/2017 the patient is metabolically stable but is having difficulties with her respiratory status and is now back on BiPAP which has been intermittent over the last multiple days. Negative pressure therapy remains intact and the sternum and we await the plastic surgery intervention. 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 Continue supportive care, and nutritional supplements as possible to improve for tissue healing. 12/13/2017 patient is on BiPAP. She is comfortable at this time. Receiving her intravenous antibiotic therapy without difficulties. At this time the surgeon present in a sterile fashion the wound VAC is removed. Surgeon evaluates and then the wound VAC is reapplied with 2 of the white foam, periwound protected with DuoDERM no difficulty with the seal. Merrem continues. 12/15/2017 the patient has had marked worsening of her status in that she had respiratory failure requiring reintubation and mechanical ventilation. She is now sedated and comfortable but has had some hemodynamic instability and is now back on vasopressor therapy. Bronchoscopy is performed and suctioning of mucous plugs as allowed some improvement of her pulmonary status. Further cultures are process. Meropenem and vancomycin continue for the isolated Serratia and concerns for resistant gram-positive infection at this time. Plastic surgery evaluation is in process and surgical plans for later this week appear to be possible. Current Visit: Yes Status: Acute Code(s): T81.32XA - DISRUPTION OF INTERNAL OPERATION (SURGICAL) WOUND, NEC, INIT SNOMED Code(s): 09873769
[2017-12-16] MEDS: MEROPENEM 1 GM in SODIUM CHLORIDE 0.9% 100 ML IVPB SCH ×3 (00:18→16:49)
[2017-12-16 00:19] LABS: Glucose,Whole Blood 100 mg/dL (75-99)
[2017-12-16] MEDS: PROPOFOL 1,000 MG in EMPTY BAG 1 BAG IV SCH ×5 (00:20→22:32)
[2017-12-16] MEDS: INSULIN ASPART 100 UNIT/ML 1 ML 10 ML VIAL SQ SCH ×4 (00:21→17:55)
[2017-12-16 04:34] LABS: Anisocytosis Moderate; Basophils % (A) 0 %; Eosinophils # (A) 0.1 k/uL (0-0.7); Eosinophils % (A) 1 %; HCT 21.9 % (34.0-46.0); Hypochromasia Marked; Lymphocytes # (A) 0.8 k/uL (1.0-4.8); Lymphocytes % (A) 5 %; MCHC 30.7 g/dL (31.0-37.0); MCV 87.9 fL (80.0-100.0); Mean Platelet Volume 7.2; Monocytes # (A) 0.5 k/uL (0-1.0); Monocytes % (A) 3 %; Neutrophils # (A) 15.4 k/uL (1.3-7.7); Neutrophils % (A) 91 %; Platelet Count 246 k/uL (150-450); Poikilocytosis Moderate; RBC 2.49 m/uL (3.80-5.40); RDW 20.1 % (11.5-15.5)
[2017-12-16 04:46] LABS: INR 1.7 (<1.2); Prothrombin Time 15.3 sec (9.0-12.0)
[2017-12-16 04:51] LABS: ALT 33 U/L (9-52); AST 52 U/L (14-36); Albumin 2.5 g/dL (3.5-5.0); Alkaline Phosphatase 88 U/L (38-126); Anion Gap 5 mmol/L; Blood Urea Nitrogen 40 mg/dL (7-17); Carbon Dioxide 34 mmol/L (22-30); Chloride 101 mmol/L (98-107); Glucose 104 mg/dL (74-99); Magnesium 2.3 mg/dL (1.6-2.3); Phosphorus 2.6 mg/dL (2.5-4.5); Potassium 4.1 mmol/L (3.5-5.1); Sodium 140 mmol/L (137-145); Total Bilirubin 0.6 mg/dL (0.2-1.3); Total Protein 5.4 g/dL (6.3-8.2)
[2017-12-16 04:52] LABS: HGB 6.7 gm/dL (11.4-16.0)
[2017-12-16 04:56] LABS: Vancomycin,Random 21.2 ug/mL
[2017-12-16 06:05] LABS: Glucose,Whole Blood 107 mg/dL (75-99)
[2017-12-16 08:11] LABS: ABG Base Excess 9.8 mmol/L; ABG HCO3 33 mmol/L (21-25); ABG PCO2 43 mmHg (35-45); ABG PO2 149 mmHg (83-108); ABG TCO2 34 mmol/L (19-24)
[2017-12-16] MEDS: IPRATROPIUM-ALBUTEROL 3 ML NEB INHALATION SCH ×4 (08:24→19:50)
[2017-12-16] MEDS: BUDESONIDE 1 MG/2 ML NEBU INHALATION SCH ×2 (08:25→19:50)
[2017-12-16] MEDS: PANTOPRAZOLE 40 MG TABLET PO SCH (08:39)
[2017-12-16] MEDS: ATORVASTATIN 40 MG TAB PO SCH (08:39)
[2017-12-16] MEDS: ASPIRIN 81 MG PO SCH (08:39)
[2017-12-16] MEDS: CHLORHEXIDINE GLUCONATE 15 ML CUP MUCOUS MEM SCH ×2 (08:39→20:28)
[2017-12-16] MEDS: AMIODARONE 200 MG TAB PO SCH ×2 (08:39→20:28)
[2017-12-16] MEDS: LACTOBACILLUS ACIDOPH & BULGAR 1 EACH PACKET PO SCH ×3 (08:40→21:49)
[2017-12-16] MEDS: METOPROLOL TARTRATE 50 MG TAB PO SCH ×2 (08:40→21:49)
[2017-12-16] MEDS: SODIUM CHLORIDE 0.9% 1,000 ML IV SCH (09:49)
[2017-12-16] MEDS: ACETAMINOPHEN IV (For NPO) 1,000 MG in EMPTY BAG 1 BAG IVPB SCH ×2 (11:04→18:46)
--- NOTE | 2017-12-16 12:06 | P.PN ---
Subjective Patient remains intubated. She is now in sinus rhythm pulse rate in the 70s and 80s, blood pressure 115/46. His mercury Breath sounds are reduced bilaterally Heart sounds are distant White count 17,000, hemoglobin 6.7 Sodium 140, potassium 4.1, BUN 40, creatinine 0.5 Impression Rheumatic heart disease Mitral valve disease mitral valve regurgitation status post replacement left atrial appendectomy maze procedure and CABG Sternal wound dehiscence status post debridement Awaiting myocutaneous flap placement Suggest Continue current therapy continue amiodarone 200 mg twice daily continue aspirin and atorvastatin and beta blockers Objective - Vital Signs Vital signs: Vital Signs Temp 98.9 F 12/16/17 09:50 Pulse 77 12/16/17 11:36 Resp 14 12/16/17 11:00 BP 128/52 12/16/17 09:50 Pulse Ox 100 12/16/17 11:00 Intake & Output 12/15/17 12/16/17 12/16/17 18:59 06:59 18:59 Intake Total 2239 129.774 1144.126 Output Total 324 374 130 Balance 1915 312.329 3066.126 Weight 103 kg 109 kg Intake: IV 1150 180 200 FFP 600 Meropenem 1 gm In Sodium 100 100 Chloride 0.9% 100 ml @ 100 mls/hr IVPB Q8HR [facility] Rx#:[id number] Potassium Phosphate 10 200 mmol In Sodium Chloride 0 .9% 100 ml @ 50 mls/hr IV Q2H [facility] Rx#:[id number] Sodium Chloride 0.9% 1, 200 180 100 000 ml @ 20 mls/hr IV . Q24H [facility] Rx#:[id number] Intake, IV Titration 200 284.667 317.126 Amount Norepinephrin 16 mg-0.9% 217.126 Ns Pmx 16 mg In 250 ml @ Titrate IV .Q0M [facility] Rx#: [id number] Propofol 1,000 mg In 200 284.667 100 Empty Bag 1 bag @ Titrate IV .Q0M [facility] Rx#: [id number] Tube Feeding 260 360 160 Blood Product 629 620 Ffp 24 Cpd Unit 297 [id number] Ffp 24 Cpd Unit 332 [id number] Rc As-1 Unit 310 [id number] Other 30 Output: Drainage 100 Medial Chest Incision - 100 Woundvac Urine 324 274 130 Other: Voiding Method Indwelling Catheter Indwelling Catheter Indwelling Catheter ABP, PAP, CO, CI - Last Documented Arterial Blood Pressure 103/42 Pulmonary Artery Pressure 38/33 Cardiac Output 5.8 Cardiac Index 2.9 - Labs CBC & Chem 7: 12/16/17 04:15 12/16/17 04:15 Labs: Abnormal Lab Results - Last 24 Hours (Table) 11/25/17 11/25/17 11/25/17 Range/Units 08:41 08:44 09:41 WBC (3.8-10.6) k/uL RBC (3.80-5.40) m/uL Hgb (11.4-16.0) gm/dL Hct (34.0-46.0) % MCHC (31.0-37.0) g/dL RDW (11.5-15.5) % Neutrophils # (1.3-7.7) k/uL Lymphocytes # (1.0-4.8) k/uL PT (9.0-12.0) sec INR (<1.2) ABG pH (7.35-7.45) ABG pCO2 46 H (35-45) mmHg ABG pO2 >420 H >420 H 308 H (83-108) mmHg ABG HCO3 26 H 26 H (21-25) mmol/L ABG Total CO2 28 H 27 H 27 H (19-24) mmol/L ABG O2 Saturation 100.0 H 100.0 H 100.0 H (94-97) % ABG Hematocrit 22 L 22 L 22 L (34.0-46.0) % ABG Potassium 4.6 H 4.6 H (3.4-4.5) mmol/L ABG Ionized Calcium (4.5-5.3) mg/dL ABG Glucose 105 H 105 H 111 H (75-99) mg/dL ABG Lactic Acid (0.5-1.6) mmol/L Hemoglobin 7.0 L* 7.0 L* 7.3 L (11.4-16.0) gm/dL Potassium (3.5-5.1) mmol/L Carbon Dioxide (22-30) mmol/L BUN (7-17) mg/dL Creatinine (0.52-1.04) mg/dL Glucose (74-99) mg/dL POC Glucose (mg/dL) (75-99) mg/dL Calcium (8.4-10.2) mg/dL AST (14-36) U/L Total Protein (6.3-8.2) g/dL Albumin (3.5-5.0) g/dL Arterial Blood Potassium 4.6 H 4.6 H (3.4-4.5) mmol/L Arterial Blood Glucose 105 H 105 H 111 H (75-99) mg/dL Vancomycin Trough ug/mL Crossmatch 11/25/17 11/25/17 11/25/17 Range/Units 10:09 10:21 11:05 WBC (3.8-10.6) k/uL RBC (3.80-5.40) m/uL Hgb (11.4-16.0) gm/dL Hct (34.0-46.0) % MCHC (31.0-37.0) g/dL RDW (11.5-15.5) % Neutrophils # (1.3-7.7) k/uL Lymphocytes # (1.0-4.8) k/uL PT (9.0-12.0) sec INR (<1.2) ABG pH 7.34 L 7.28 L (7.35-7.45) ABG pCO2 54 H (35-45) mmHg ABG pO2 305 H >420 H 396 H (83-108) mmHg ABG HCO3 (21-25) mmol/L ABG Total CO2 26 H 27 H 26 H (19-24) mmol/L ABG O2 Saturation 100.0 H 100.0 H 100.0 H (94-97) % ABG Hematocrit 24 L 27 L 26 L (34.0-46.0) % ABG Potassium 4.9 H (3.4-4.5) mmol/L ABG Ionized Calcium 4.0 L 4.1 L (4.5-5.3) mg/dL ABG Glucose 112 H 127 H 146 H (75-99) mg/dL ABG Lactic Acid 2.0 H 1.9 H (0.5-1.6) mmol/L Hemoglobin 7.9 L 8.9 L 8.6 L (11.4-16.0) gm/dL Potassium (3.5-5.1) mmol/L Carbon Dioxide (22-30) mmol/L BUN (7-17) mg/dL Creatinine (0.52-1.04) mg/dL Glucose (74-99) mg/dL POC Glucose (mg/dL) (75-99) mg/dL Calcium (8.4-10.2) mg/dL AST (14-36) U/L Total Protein (6.3-8.2) g/dL Albumin (3.5-5.0) g/dL Arterial Blood Potassium 4.9 H (3.4-4.5) mmol/L Arterial Blood Glucose 112 H 127 H 146 H (75-99) mg/dL Vancomycin Trough ug/mL Crossmatch 11/25/17 11/25/17 11/25/17 Range/Units 11:38 12:12 12:49 WBC (3.8-10.6) k/uL RBC (3.80-5.40) m/uL Hgb (11.4-16.0) gm/dL Hct (34.0-46.0) % MCHC (31.0-37.0) g/dL RDW (11.5-15.5) % Neutrophils # (1.3-7.7) k/uL Lymphocytes # (1.0-4.8) k/uL PT (9.0-12.0) sec INR (<1.2) ABG pH 7.31 L 7.33 L (7.35-7.45) ABG pCO2 50 H (35-45) mmHg ABG pO2 335 H 289 H 405 H (83-108) mmHg ABG HCO3 (21-25) mmol/L ABG Total CO2 27 H 27 H 25 H (19-24) mmol/L ABG O2 Saturation 100.0 H 100.0 H 100.0 H (94-97) % ABG Hematocrit 25 L 26 L 24 L (34.0-46.0) % ABG Potassium 5.0 H 4.7 H 4.7 H (3.4-4.5) mmol/L ABG Ionized Calcium 4.2 L 4.3 L 4.1 L (4.5-5.3) mg/dL ABG Glucose 169 H 163 H 165 H (75-99) mg/dL ABG Lactic Acid 1.9 H 2.2 H* 2.2 H* (0.5-1.6) mmol/L Hemoglobin 8.3 L 8.4 L 7.9 L (11.4-16.0) gm/dL Potassium (3.5-5.1) mmol/L Carbon Dioxide (22-30) mmol/L BUN (7-17) mg/dL Creatinine (0.52-1.04) mg/dL Glucose (74-99) mg/dL POC Glucose (mg/dL) (75-99) mg/dL Calcium (8.4-10.2) mg/dL AST (14-36) U/L Total Protein (6.3-8.2) g/dL Albumin (3.5-5.0) g/dL Arterial Blood Potassium 5.0 H 4.7 H 4.7 H (3.4-4.5) mmol/L Arterial Blood Glucose 169 H 163 H 165 H (75-99) mg/dL Vancomycin Trough ug/mL Crossmatch 11/25/17 11/25/17 11/25/17 Range/Units 14:02 15:19 15:53 WBC (3.8-10.6) k/uL RBC (3.80-5.40) m/uL Hgb (11.4-16.0) gm/dL Hct (34.0-46.0) % MCHC (31.0-37.0) g/dL RDW (11.5-15.5) % Neutrophils # (1.3-7.7) k/uL Lymphocytes # (1.0-4.8) k/uL PT (9.0-12.0) sec INR (<1.2) ABG pH 7.31 L 7.29 L 7.28 L (7.35-7.45) ABG pCO2 51 H 52 H 46 H (35-45) mmHg ABG pO2 >420 H >420 H 390 H (83-108) mmHg ABG HCO3 (21-25) mmol/L ABG Total CO2 27 H 27 H (19-24) mmol/L ABG O2 Saturation 100.0 H 100.0 H 100.0 H (94-97) % ABG Hematocrit 27 L 25 L 21 L (34.0-46.0) % ABG Potassium (3.4-4.5) mmol/L ABG Ionized Calcium 3.9 L 6.5 H* 3.9 L (4.5-5.3) mg/dL ABG Glucose 100 H 117 H 158 H (75-99) mg/dL ABG Lactic Acid 2.0 H 1.9 H 3.1 H* (0.5-1.6) mmol/L Hemoglobin 8.8 L 8.0 L 6.9 L* (11.4-16.0) gm/dL Potassium (3.5-5.1) mmol/L Carbon Dioxide (22-30) mmol/L BUN (7-17) mg/dL Creatinine (0.52-1.04) mg/dL Glucose (74-99) mg/dL POC Glucose (mg/dL) (75-99) mg/dL Calcium (8.4-10.2) mg/dL AST (14-36) U/L Total Protein (6.3-8.2) g/dL Albumin (3.5-5.0) g/dL Arterial Blood Potassium (3.4-4.5) mmol/L Arterial Blood Glucose 100 H 117 H 158 H (75-99) mg/dL Vancomycin Trough ug/mL Crossmatch 11/25/17 11/25/17 12/14/17 Range/Units 16:46 17:37 10:10 WBC (3.8-10.6) k/uL RBC (3.80-5.40) m/uL Hgb (11.4-16.0) gm/dL Hct (34.0-46.0) % MCHC (31.0-37.0) g/dL RDW (11.5-15.5) % Neutrophils # (1.3-7.7) k/uL Lymphocytes # (1.0-4.8) k/uL PT (9.0-12.0) sec INR (<1.2) ABG pH 7.28 L (7.35-7.45) ABG pCO2 52 H (35-45) mmHg ABG pO2 416 H 198 H (83-108) mmHg ABG HCO3 (21-25) mmol/L ABG Total CO2 25 H 26 H (19-24) mmol/L ABG O2 Saturation 100.0 H 99.7 H (94-97) % ABG Hematocrit 28 L 24 L (34.0-46.0) % ABG Potassium (3.4-4.5) mmol/L ABG Ionized Calcium 3.9 L 4.0 L (4.5-5.3) mg/dL ABG Glucose 163 H 139 H (75-99) mg/dL ABG Lactic Acid 3.1 H* 2.8 H* (0.5-1.6) mmol/L Hemoglobin 9.1 L 7.8 L (11.4-16.0) gm/dL Potassium (3.5-5.1) mmol/L Carbon Dioxide (22-30) mmol/L BUN (7-17) mg/dL Creatinine (0.52-1.04) mg/dL Glucose (74-99) mg/dL POC Glucose (mg/dL) (75-99) mg/dL Calcium (8.4-10.2) mg/dL AST (14-36) U/L Total Protein (6.3-8.2) g/dL Albumin (3.5-5.0) g/dL Arterial Blood Potassium (3.4-4.5) mmol/L Arterial Blood Glucose 163 H 139 H (75-99) mg/dL Vancomycin Trough ug/mL Crossmatch See Detail 12/15/17 12/15/17 12/16/17 Range/Units 11:30 14:30 00:17 WBC (3.8-10.6) k/uL RBC (3.80-5.40) m/uL Hgb (11.4-16.0) gm/dL Hct (34.0-46.0) % MCHC (31.0-37.0) g/dL RDW (11.5-15.5) % Neutrophils # (1.3-7.7) k/uL Lymphocytes # (1.0-4.8) k/uL PT (9.0-12.0) sec INR (<1.2) ABG pH (7.35-7.45) ABG pCO2 (35-45) mmHg ABG pO2 (83-108) mmHg ABG HCO3 (21-25) mmol/L ABG Total CO2 (19-24) mmol/L ABG O2 Saturation (94-97) % ABG Hematocrit (34.0-46.0) % ABG Potassium (3.4-4.5) mmol/L ABG Ionized Calcium (4.5-5.3) mg/dL ABG Glucose (75-99) mg/dL ABG Lactic Acid (0.5-1.6) mmol/L Hemoglobin (11.4-16.0) gm/dL Potassium 3.4 L (3.5-5.1) mmol/L Carbon Dioxide (22-30) mmol/L BUN (7-17) mg/dL Creatinine (0.52-1.04) mg/dL Glucose (74-99) mg/dL POC Glucose (mg/dL) 100 H (75-99) mg/dL Calcium (8.4-10.2) mg/dL AST (14-36) U/L Total Protein (6.3-8.2) g/dL Albumin (3.5-5.0) g/dL Arterial Blood Potassium (3.4-4.5) mmol/L Arterial Blood Glucose (75-99) mg/dL Vancomycin Trough 30.6 H* ug/mL Crossmatch 12/16/17 12/16/17 12/16/17 Range/Units 04:15 04:15 04:15 WBC 17.0 H (3.8-10.6) k/uL RBC 2.49 L (3.80-5.40) m/uL Hgb 6.7 L* (11.4-16.0) gm/dL Hct 21.9 L (34.0-46.0) % MCHC 30.7 L (31.0-37.0) g/dL RDW 20.1 H (11.5-15.5) % Neutrophils # 15.4 H (1.3-7.7) k/uL Lymphocytes # 0.8 L (1.0-4.8) k/uL PT 15.3 H (9.0-12.0) sec INR 1.7 H (<1.2) ABG pH (7.35-7.45) ABG pCO2 (35-45) mmHg ABG pO2 (83-108) mmHg ABG HCO3 (21-25) mmol/L ABG Total CO2 (19-24) mmol/L ABG O2 Saturation (94-97) % ABG Hematocrit (34.0-46.0) % ABG Potassium (3.4-4.5) mmol/L ABG Ionized Calcium (4.5-5.3) mg/dL ABG Glucose (75-99) mg/dL ABG Lactic Acid (0.5-1.6) mmol/L Hemoglobin (11.4-16.0) gm/dL Potassium (3.5-5.1) mmol/L Carbon Dioxide 34 H (22-30) mmol/L BUN 40 H (7-17) mg/dL Creatinine 0.50 L (0.52-1.04) mg/dL Glucose 104 H (74-99) mg/dL POC Glucose (mg/dL) (75-99) mg/dL Calcium 8.0 L (8.4-10.2) mg/dL AST 52 H (14-36) U/L Total Protein 5.4 L (6.3-8.2) g/dL Albumin 2.5 L (3.5-5.0) g/dL Arterial Blood Potassium (3.4-4.5) mmol/L Arterial Blood Glucose (75-99) mg/dL Vancomycin Trough ug/mL Crossmatch 12/16/17 12/16/17 Range/Units 06:03 08:07 WBC (3.8-10.6) k/uL RBC (3.80-5.40) m/uL Hgb (11.4-16.0) gm/dL Hct (34.0-46.0) % MCHC (31.0-37.0) g/dL RDW (11.5-15.5) % Neutrophils # (1.3-7.7) k/uL Lymphocytes # (1.0-4.8) k/uL PT (9.0-12.0) sec INR (<1.2) ABG pH 7.50 H (7.35-7.45) ABG pCO2 (35-45) mmHg ABG pO2 149 H (83-108) mmHg ABG HCO3 33 H (21-25) mmol/L ABG Total CO2 34 H (19-24) mmol/L ABG O2 Saturation 100.0 H (94-97) % ABG Hematocrit (34.0-46.0) % ABG Potassium (3.4-4.5) mmol/L ABG Ionized Calcium (4.5-5.3) mg/dL ABG Glucose (75-99) mg/dL ABG Lactic Acid (0.5-1.6) mmol/L Hemoglobin (11.4-16.0) gm/dL Potassium (3.5-5.1) mmol/L Carbon Dioxide (22-30) mmol/L BUN (7-17) mg/dL Creatinine (0.52-1.04) mg/dL Glucose (74-99) mg/dL POC Glucose (mg/dL) 107 H (75-99) mg/dL Calcium (8.4-10.2) mg/dL AST (14-36) U/L Total Protein (6.3-8.2) g/dL Albumin (3.5-5.0) g/dL Arterial Blood Potassium (3.4-4.5) mmol/L Arterial Blood Glucose (75-99) mg/dL Vancomycin Trough ug/mL Crossmatch Microbiology - Last 24 Hours (Table) 12/15/17 10:40 Acid Fast Bacilli Smear - Final Bronchial Washings - Left Acid Fast Bacilli Culture - Preliminary 12/15/17 10:40 Gram Stain - Preliminary Bronchial Washings - Left Bronchial Washings Culture - Preliminary 12/15/17 10:40 Fungal Culture - Preliminary Bronchial Washings - Left 12/14/17 21:30 Gram Stain - Preliminary Sputum Sputum Culture - Preliminary
[2017-12-16 12:28] LABS: Glucose,Whole Blood 109 mg/dL (75-99)
--- NOTE | 2017-12-16 12:32 | XR ---
EXAMINATION TYPE: XR chest 1V DATE OF EXAM: 12/16/2017 COMPARISON: 12/15/2017 HISTORY: Shortness of breath TECHNIQUE: Single frontal view of the chest is obtained. FINDINGS: ET and NG tube stable. Vascular stents noted. PICC line seen. Prosthetic heart valve and c ardiac lead noted. Bilateral infiltrate and pleural effusion. IMPRESSION: 1. Stable bilateral consolidation and pleural effusion greater on the left. Central venous congestion in the differential correlate clinically.
--- NOTE | 2017-12-16 13:33 | P.PN ---
Subjective Progress Note Date: 12/16/17 Principal diagnosis: Status post mitral valve replacement with maze procedure postoperative day #20 On 12/11/2017 I'm seeing this patient for a follow-up. The patient is this morning, comfortable in the BiPAP. She is using the BiPAP on and off during the day. She was taken to the operating room where his surgical wound was debrided and the sternum was debrided and the wound VAC was applied. There is a positive gram-negative infection with Serratia and the patient is currently on IV Merrem. Also, left-sided chest tube was inserted. The chest tube drained approximately 130 mL of fluid for yesterday since it was placed and another 60 mL for today. The patient's pleural wound VAC has drained approximately 550 mL for yesterday and another 100 mL for today. The patient is afebrile. The patient is hemodynamically stable. The patient went into atrial fibrillation and this morning she converted into sinus and she is back and forth between flutter and sinus rhythm. She is on no pressors. Her INR is at 1.8. No anticoagulation will be offered today. Lasix surgery consultation was obtained for a future muscle flap. Hemoglobin is at 7.7. White cell count is at 16.3. The function is stable with a creatinine of 0.8. She is using incentive spirometer. She has no other complaints otherwise for now. On 12/12/2017, the patient is still doing well. The patient is sitting up in her bed and she is on a BiPAP at a pressure of 14/5 cm of water with an FiO2 of 50%. Her chest x-ray is quite stable and the patient has still a persistent consolidation/opacity in the left lung base. I have scanned the patient earlier this week and the findings the left lung bases consistent with some posterior pericardial effusion, atelectasis and small effusions. For that reason a chest tube was inserted and the total amount of output from the chest tube was 300 mL and since then the output has dropped considerably. The wound VAC is in place and the total amount of output over the past 12 hours as been around 250 mL. The wound cultures are showing gram-negative, the previous fluid drainage was positive for Serratia and the patient is currently on IV Merrem. White cell count is up to 19 and this is something to monitor knowing that her white cell count from yesterday was 16.3. Renal function is stable. She is producing adequate amount of urine output. Abdomen today is at 8.1. She is weak. She is taking approximately 20% of her diet and she is drinking a sure. Her cardiac rhythm is a flutter with 2 to one block and since this morning the patient became progressively more tachycardic. She received an additional amiodarone dose yesterday without much benefit. She is on beta blockers on metoprolol at a dose of 50 mg by mouth twice a day. She became slightly hypotensive yesterday and she was supposed to get albumin which was not given as the patient's blood pressure subsequently improved. She is off anticoagulation awaiting a sternal flap and the patient's INR today is at 1.7. Patient was reevaluated today on 12/13/2017, remains with very marginal pulmonary status, remains on BiPAP, FiO2 of 50%, IPAP of 14 and EPAP of 5. Chest x-ray seems to be worsening, CT of the chest is also worsening there is also a near-complete collapse of the left lung, only a small portion of the upper lobe remains aerated. Small pleural effusions noted, and what is worsening is the fact that she has an enlarging moderate to large pericardial effusion measuring 2.7 cm in thickness. This is along the left heart margin but increasing along the right heart margin measuring now 1.7 cm compared to 1 cm previously. Considering the findings, I felt strongly that the patient may benefit from bronchoscopy and left lung evaluation, however with the finding of increasing pericardial effusion, may have to be seen by thoracic surgery and consider a pericardial window. Her labs were reviewed, WBC count is 24.6 hemoglobin is 8.6 and her INR is 1.8. Patient is noted to be a bit dyspneic on BiPAP at 50%. Patient was reevaluated today on 12/14/2017, remains on BiPAP, patient is afraid to get off BiPAP. Same settings including IPAP of 14 and EPAP of 5, and she is on 50% FiO2. No evidence of leak, her tidal volume is anywhere between 450-500 , and her rate is about 18. Chest x-ray today showed slight improvement in the left lung collapse, however continues to have significant collapse of the left lower lobe. No bronchoscopy was done yesterday mostly because of the abnormal finding regarding her pericardial effusion, and we were not certain whether the patient will need a pericardial window at the time. The surgeons felt no need for pericardial window, patient was scheduled for bronchoscopy early this morning, but her INR is elevated, hence we recommended 2 units of fresh frozen plasma, and I still plan to do the bronchoscopy this afternoon. Family was made aware of the reasons for delay, but hopefully we can get it done sometime this afternoon. Labs were reviewed, her WBC count is 17.1 hemoglobin is 10.2 her INR was 2.1 earlier today. Rest of the labs were reviewed. Hemodynamically the patient is stable, intermittently she may have episodes of atrial flutter without hemodynamic instability. Reevaluated today on 12/15/2017, patient's condition worsened late p.m. yesterday , she was in atrial flutter, developed worsening shortness of breath, and did not improve with diuretics, BiPAP, and given multiple meds to control her atrial flutter including amiodarone, and she was given beta blockers. Patient continued to show worsening dyspnea, and she was intubated placed on mechanical ventilation. Immediate chest x-ray post intubation showed adequate expansion of the left lower lobe, however follow-up chest x-ray today showed left lower lobe collapse. I performed bronchoscopy on the patient today, she was given earlier 2 more units of fresh frozen plasma, and I proceeded to bronchoscopy and BAL of the left lower lobe. Indeed there was a mucous plug in the left lower lobe bronchus, this was suctioned, and lavage of the whole left lower lobe was done. Fluid was sent for different diagnostic studies, please refer to the full operative report. Vent settings were reviewed, patient is now on assist control rate of 18, 45% FiO2, and tidal volume of 500 PEEP is at 5. ABG showed a pO2 of 123 pCO2 of 43 pH of 7.50 antibiotics mcguire, patient is now on Merrem and vancomycin. Reevaluated today on 12/16/2017, patient remains on mechanical ventilation, same vent settings as noted above, however her FiO2 is down to 40%, PEEP remains at 5 , tidal volume is 500 and assist control rate of 18. ABG is excellent. Patient remains on antibiotics in the form of Merrem and vancomycin. Her wound VAC was addressed today by Dr. richi harrison on the case, and the sternal wound was cleaned and one VAC placed again. Awaiting final myocutaneous flap by plastic surgery. In the meantime I believe the patient will be extremely difficult to wean and extubate successfully, we'll try to find out as when her surgery is scheduled for her sternum. Onset the sternum is stabilized, it will be much easier to perform successful weaning and extubation. Otherwise the patient will have to be extubated again to a BiPAP, and she would likely continue to collapse her lower lobes. Today the patient received a unit of packed RBCs for low hemoglobin. Objective - Vital Signs Vital signs: Vital Signs Temp 98.9 F 12/16/17 09:50 Pulse 77 12/16/17 11:36 Resp 14 12/16/17 11:00 BP 128/52 12/16/17 09:50 Pulse Ox 100 12/16/17 11:00 Intake & Output 12/15/17 12/16/17 12/16/17 18:59 06:59 18:59 Intake Total 2239 572.957 6876.126 Output Total 324 374 130 Balance 1915 209.775 8765.126 Weight 103 kg 109 kg Intake: IV 1150 180 200 FFP 600 Meropenem 1 gm In Sodium 100 100 Chloride 0.9% 100 ml @ 100 mls/hr IVPB Q8HR [facility] Rx#:[id number] Potassium Phosphate 10 200 mmol In Sodium Chloride 0 .9% 100 ml @ 50 mls/hr IV Q2H [facility] Rx#:[id number] Sodium Chloride 0.9% 1, 200 180 100 000 ml @ 20 mls/hr IV . Q24H [facility] Rx#:[id number] Intake, IV Titration 200 284.667 317.126 Amount Norepinephrin 16 mg-0.9% 217.126 Ns Pmx 16 mg In 250 ml @ Titrate IV .Q0M [facility] Rx#: [id number] Propofol 1,000 mg In 200 284.667 100 Empty Bag 1 bag @ Titrate IV .Q0M [facility] Rx#: [id number] Tube Feeding 260 360 160 Blood Product 629 620 Ffp 24 Cpd Unit 297 [id number] Ffp 24 Cpd Unit 332 [id number] Rc As-1 Unit 310 [id number] Other 30 Output: Drainage 100 Medial Chest Incision - 100 Woundvac Urine 324 274 130 Other: Voiding Method Indwelling Catheter Indwelling Catheter Indwelling Catheter ABP, PAP, CO, CI - Last Documented Arterial Blood Pressure 103/42 Pulmonary Artery Pressure 38/33 Cardiac Output 5.8 Cardiac Index 2.9 - Exam - Constitutional General appearance: Physical exam revealed a 67-year-old, female, intubated, sedated. - EENT ENT: Dry mucous membranes, no neck masses, endotracheal tube is in place. - Neck Details: No neck masses, no JVD, throat is clear, no stridor. - Respiratory Details: diminished breath sounds at the left base.. Respirations are symmetrical. Left pleural chest tube remains intact evacuating thin serosanguineous drainage. No air leak present. Chest tube remains to low continuous wall suction -20 cm H2O. sternal wound VAC is noted. Sternal wound was noted once the wound VAC was removed by the surgeon today. - Cardiovascular Details: Irregular rhythm , normal S1 and S2 present, negative for S3, gallop or murmur. Sternal wound with wound VAC in place, - Gastrointestinal Gastrointestinal Comment(s): Obese, soft, nontender, no megaly, no rebound, no guarding, positive bowel sounds.- Genitourinary Genitourinary Comment(s): Mason catheter remains in place with good urine output - Integumentary Integumentary Comment(s): Skin is relatively unremarkable.. Wound VAC in place to sternal wound. Positive serosanguineous drainage. Stage II wound to her coccyx with local with wound care treatment. No clubbing or cyanosis. - Neurologic Neurologic: Sedated, on propofol drip at present. - Musculoskeletal Musculoskeletal: Cannot be assessed - Psychiatric Psychiatric: Cannot be assessed today patient is fully sedated. - Labs CBC & Chem 7: 12/16/17 04:15 12/16/17 04:15 Labs: Abnormal Lab Results - Last 24 Hours (Table) 12/14/17 12/15/17 12/16/17 Range/Units 10:10 14:30 00:17 WBC (3.8-10.6) k/uL RBC (3.80-5.40) m/uL Hgb (11.4-16.0) gm/dL Hct (34.0-46.0) % MCHC (31.0-37.0) g/dL RDW (11.5-15.5) % Neutrophils # (1.3-7.7) k/uL Lymphocytes # (1.0-4.8) k/uL PT (9.0-12.0) sec INR (<1.2) ABG pH (7.35-7.45) ABG pO2 (83-108) mmHg ABG HCO3 (21-25) mmol/L ABG Total CO2 (19-24) mmol/L ABG O2 Saturation (94-97) % Potassium 3.4 L (3.5-5.1) mmol/L Carbon Dioxide (22-30) mmol/L BUN (7-17) mg/dL Creatinine (0.52-1.04) mg/dL Glucose (74-99) mg/dL POC Glucose (mg/dL) 100 H (75-99) mg/dL Calcium (8.4-10.2) mg/dL AST (14-36) U/L Total Protein (6.3-8.2) g/dL Albumin (3.5-5.0) g/dL Crossmatch See Detail 12/16/17 12/16/17 12/16/17 Range/Units 04:15 04:15 04:15 WBC 17.0 H (3.8-10.6) k/uL RBC 2.49 L (3.80-5.40) m/uL Hgb 6.7 L* (11.4-16.0) gm/dL Hct 21.9 L (34.0-46.0) % MCHC 30.7 L (31.0-37.0) g/dL RDW 20.1 H (11.5-15.5) % Neutrophils # 15.4 H (1.3-7.7) k/uL Lymphocytes # 0.8 L (1.0-4.8) k/uL PT 15.3 H (9.0-12.0) sec INR 1.7 H (<1.2) ABG pH (7.35-7.45) ABG pO2 (83-108) mmHg ABG HCO3 (21-25) mmol/L ABG Total CO2 (19-24) mmol/L ABG O2 Saturation (94-97) % Potassium (3.5-5.1) mmol/L Carbon Dioxide 34 H (22-30) mmol/L BUN 40 H (7-17) mg/dL Creatinine 0.50 L (0.52-1.04) mg/dL Glucose 104 H (74-99) mg/dL POC Glucose (mg/dL) (75-99) mg/dL Calcium 8.0 L (8.4-10.2) mg/dL AST 52 H (14-36) U/L Total Protein 5.4 L (6.3-8.2) g/dL Albumin 2.5 L (3.5-5.0) g/dL Crossmatch 12/16/17 12/16/17 12/16/17 Range/Units 06:03 08:07 12:27 WBC (3.8-10.6) k/uL RBC (3.80-5.40) m/uL Hgb (11.4-16.0) gm/dL Hct (34.0-46.0) % MCHC (31.0-37.0) g/dL RDW (11.5-15.5) % Neutrophils # (1.3-7.7) k/uL Lymphocytes # (1.0-4.8) k/uL PT (9.0-12.0) sec INR (<1.2) ABG pH 7.50 H (7.35-7.45) ABG pO2 149 H (83-108) mmHg ABG HCO3 33 H (21-25) mmol/L ABG Total CO2 34 H (19-24) mmol/L ABG O2 Saturation 100.0 H (94-97) % Potassium (3.5-5.1) mmol/L Carbon Dioxide (22-30) mmol/L BUN (7-17) mg/dL Creatinine (0.52-1.04) mg/dL Glucose (74-99) mg/dL POC Glucose (mg/dL) 107 H 109 H (75-99) mg/dL Calcium (8.4-10.2) mg/dL AST (14-36) U/L Total Protein (6.3-8.2) g/dL Albumin (3.5-5.0) g/dL Crossmatch Microbiology - Last 24 Hours (Table) 12/15/17 10:40 Acid Fast Bacilli Smear - Final Bronchial Washings - Left Acid Fast Bacilli Culture - Preliminary 12/15/17 10:40 Gram Stain - Preliminary Bronchial Washings - Left Bronchial Washings Culture - Preliminary 12/15/17 10:40 Fungal Culture - Preliminary Bronchial Washings - Left Assessment and Plan Assessment: 1. Severe mitral valve regurgitation, status post mitral valve replacement, with Maze procedure, left atrial appendage exclusion, and one-vessel bypass, postop day #20 2 sternal wound dehiscence/infection with gram-negative infection and the patient has Serratia currently on Merrem. The patient underwent debridement and the wound VAC is applied. She will ultimately need a flap and plastic surgery the date for her surgery is not yet known, hopefully this week, in the meantime continue Merrem and vancomycin. 3 left basilar atelectasis/and left lower lobe collapse, status post bronchoscopy and lavage of the left lower lobe on 12/15/2017. 4 acute respiratory failure, hypoxic requiring reintubation and mechanical ventilation. 5. acute urinary tract infection, urine culture positive for E. coli and Serratia marcescens, on meropenem 6. Anemia, multifactorial in the patient's hemoglobin is 6.9 7 paroxysmal atrial flutter with rapid ventricular response currently on beta blockers and oral amiodarone, anticoagulation therapy is presently on hold because of bleeding from the wound VAC was noted. Presently heparin and Coumadin are both on hold. 8 left subclavian stenosis 9 leukocytosis 10 obesity 11 previous history of GI bleed 12 pressure ulceration in the back and buttocks, stage III Recommendation: Continue present supportive care measures, continue mechanical ventilation, continue nutritional support, hemodynamic support, presently she is on norepinephrine at a low dose, no plans to wean or extubated today, we'll continue to follow, discussed her condition with her daughter at bedside and cardiothoracic surgery on the case. Her time is 35 minutes. Time with Patient: Greater than 30
[2017-12-16] MEDS: VANCOMYCIN 1,750 MG in SODIUM CHLORIDE 0.9% 250 ML IVPB SCH (13:41)
--- NOTE | 2017-12-16 17:18 | P.PN ---
Subjective Progress Note Date: 12/16/17 Principal diagnosis: Severe mitral valve regurgitation. Coronary artery disease. Preoperative paroxysmal atrial fibrillation on outpatient Coumadin for anticoagulation. Recent hospitalization for lower GI bleed, and duodenal ulcer. History of left subclavian stenosis with stent placement 2014 with recent discovery of critical re-in-stent stenosis. Previous tobacco dependence with preoperative FEV1 60% of predicted. Hypertension. Hyperlipidemia. Depression on Lexapro. Gallbladder disease. Family history of heart disease. Preoperative nasal swab positive for MRSA. Preoperative anemia. POD #21 Mitral valve replacement using a 25 mm Ribera bioprosthetic tissue valve. Coronary artery bypass grafting 1, a reverse greater saphenous vein graft to the obtuse marginal coronary artery. Endoscopic harvesting of the left greater saphenous vein. Modified MAZE procedure. The report wasn't back yet not back in Ligation of the left atrial appendage using a 40 mm AtriClip. Epi- aortic ultrasound. Intraoperative transesophageal echocardiogram. Intraoperative left ventricular wall tear, an unexpected but potential outcome of surgery. Acute blood loss anemia, an expected outcome given patient's preoperative anemia and intraoperative bleeding. Postoperative prolonged mechanical ventilation secondary to hemodynamic instability, an unexpected but potential outcome of surgery given the extensive nature of her postoperative course. Sternal incision dehiscence, possible outcome of surgery given the patient's obesity, nutrition status and ability. POD #6 sternal wound debridement with placement of wound VAC. Patient is currently lying in bed with her head elevated at 45. She is in no acute distress. She is intubated with mechanical ventilator support. She is currently sedated on Diprivan drip at 40 mcg/kg/m. Bedside telemetry showing normal sinus rhythm heart rate 86. Wound VAC is intact and draining thin serosanguineous drainage. Patient underwent a bronchoscopy performed by Dr. Rutledge yesterday with removal of thick mucous plug. Gram stain and culture results pending. Objective - Vital Signs Vital signs: Vital Signs Temp 99.6 F 12/16/17 16:00 Pulse 83 12/16/17 16:30 Resp 14 12/16/17 16:30 BP 128/52 12/16/17 09:50 Pulse Ox 100 12/16/17 16:30 Intake & Output 12/15/17 12/16/17 12/16/17 18:59 06:59 18:59 Intake Total 2239 723.803 9955.126 Output Total 324 374 265 Balance 1915 924.722 2418.126 Weight 103 kg 109 kg 109 kg Intake: IV 1150 180 550 FFP 600 Meropenem 1 gm In Sodium 100 100 Chloride 0.9% 100 ml @ 100 mls/hr IVPB Q8HR [facility] Rx#:[id number] Potassium Phosphate 10 200 mmol In Sodium Chloride 0 .9% 100 ml @ 50 mls/hr IV Q2H [facility] Rx#:[id number] Sodium Chloride 0.9% 1, 200 180 200 000 ml @ 20 mls/hr IV . Q24H [facility] Rx#:[id number] Vancomycin 1,750 mg In 250 Sodium Chloride 0.9% 250 ml @ 125 mls/hr IVPB Q12HR@0000,1200 [facility] Rx#: [id number] Intake, IV Titration 200 284.667 517.126 Amount ACETAMINOPHEN IV (For NPO 100 ) 1,000 mg In Empty Bag 1 bag @ 400 mls/hr IVPB Q6HR [facility] Rx#:[id number] Norepinephrin 16 mg-0.9% 217.126 Ns Pmx 16 mg In 250 ml @ Titrate IV .Q0M [facility] Rx#: [id number] Propofol 1,000 mg In 200 284.667 200 Empty Bag 1 bag @ Titrate IV .Q0M [facility] Rx#: [id number] Tube Feeding 260 360 360 Blood Product 629 620 Ffp 24 Cpd Unit 297 [id number] Ffp 24 Cpd Unit 332 [id number] Rc As-1 Unit 310 [id number] Other 150 Output: Drainage 100 Medial Chest Incision - 100 Woundvac Urine 324 274 265 Other: Voiding Method Indwelling Catheter Indwelling Catheter Indwelling Catheter ABP, PAP, CO, CI - Last Documented Arterial Blood Pressure 136/95 Pulmonary Artery Pressure 38/33 Cardiac Output 5.8 Cardiac Index 2.9 - Constitutional Constitutional Comment(s): Patient is currently sedated on Diprivan drip at 40 mcg/kg/m. General appearance: Present: no acute distress, obese - EENT Eyes: Present: PERRLA - Neck Details: Neck is supple, no JVD, no lymphadenopathy. - Respiratory Details: Lung sounds with few scattered rhonchi throughout, diminished bilateral bases. Respirations are symmetrical and nonlabored with mechanical ventilator support. Current ventilator settings are as follows: Assist control mode 14, TV 500, FiO2 45%, PEEP 5. Oxygen saturations are 100%. Left pleural chest tube remains to low continuous wall suction -20 cm H2O. No drainage in the last 24 hours. No air leak present. - Cardiovascular Details: Regular rhythm and rate. S1 and S2 present, negative for S3, gallop or murmur. Bedside telemetry showing normal sinus rhythm heart rate 86. Sternal wound with VAC dressing in place. Scant serosanguineous drainage. Knee-high DANITZA hose and sequential compression devices in place to her bilateral lower extremities. Generalized +1 edema. Mammary support intact, heart hugger in place. Left brachial PICC line present and functioning. - Gastrointestinal Gastrointestinal Comment(s): Abdomen is soft, nontender nondistended. Active bowel sounds all 4 abdominal quadrants. OG tube patent with tube feeding vital high-protein infusing at 40 mL per hour with automatic water flushes. - Genitourinary Genitourinary Comment(s): Mason catheter for accurate I&O. Clear yellow urine. Marginal urine output. - Neurologic Neurologic Comment(s): Remain sedated with propofol drip. - Musculoskeletal Musculoskeletal: Present: generalized weakness - Allied health notes Allied health notes reviewed: nursing - Labs CBC & Chem 7: 12/16/17 04:15 12/16/17 04:15 Labs: Abnormal Lab Results - Last 24 Hours (Table) 12/14/17 12/16/17 12/16/17 Range/Units 10:10 00:17 04:15 WBC 17.0 H (3.8-10.6) k/uL RBC 2.49 L (3.80-5.40) m/uL Hgb 6.7 L* (11.4-16.0) gm/dL Hct 21.9 L (34.0-46.0) % MCHC 30.7 L (31.0-37.0) g/dL RDW 20.1 H (11.5-15.5) % Neutrophils # 15.4 H (1.3-7.7) k/uL Lymphocytes # 0.8 L (1.0-4.8) k/uL PT (9.0-12.0) sec INR (<1.2) ABG pH (7.35-7.45) ABG pO2 (83-108) mmHg ABG HCO3 (21-25) mmol/L ABG Total CO2 (19-24) mmol/L ABG O2 Saturation (94-97) % Carbon Dioxide (22-30) mmol/L BUN (7-17) mg/dL Creatinine (0.52-1.04) mg/dL Glucose (74-99) mg/dL POC Glucose (mg/dL) 100 H (75-99) mg/dL Calcium (8.4-10.2) mg/dL AST (14-36) U/L Total Protein (6.3-8.2) g/dL Albumin (3.5-5.0) g/dL Crossmatch See Detail 12/16/17 12/16/17 12/16/17 Range/Units 04:15 04:15 06:03 WBC (3.8-10.6) k/uL RBC (3.80-5.40) m/uL Hgb (11.4-16.0) gm/dL Hct (34.0-46.0) % MCHC (31.0-37.0) g/dL RDW (11.5-15.5) % Neutrophils # (1.3-7.7) k/uL Lymphocytes # (1.0-4.8) k/uL PT 15.3 H (9.0-12.0) sec INR 1.7 H (<1.2) ABG pH (7.35-7.45) ABG pO2 (83-108) mmHg ABG HCO3 (21-25) mmol/L ABG Total CO2 (19-24) mmol/L ABG O2 Saturation (94-97) % Carbon Dioxide 34 H (22-30) mmol/L BUN 40 H (7-17) mg/dL Creatinine 0.50 L (0.52-1.04) mg/dL Glucose 104 H (74-99) mg/dL POC Glucose (mg/dL) 107 H (75-99) mg/dL Calcium 8.0 L (8.4-10.2) mg/dL AST 52 H (14-36) U/L Total Protein 5.4 L (6.3-8.2) g/dL Albumin 2.5 L (3.5-5.0) g/dL Crossmatch 12/16/17 12/16/17 Range/Units 08:07 12:27 WBC (3.8-10.6) k/uL RBC (3.80-5.40) m/uL Hgb (11.4-16.0) gm/dL Hct (34.0-46.0) % MCHC (31.0-37.0) g/dL RDW (11.5-15.5) % Neutrophils # (1.3-7.7) k/uL Lymphocytes # (1.0-4.8) k/uL PT (9.0-12.0) sec INR (<1.2) ABG pH 7.50 H (7.35-7.45) ABG pO2 149 H (83-108) mmHg ABG HCO3 33 H (21-25) mmol/L ABG Total CO2 34 H (19-24) mmol/L ABG O2 Saturation 100.0 H (94-97) % Carbon Dioxide (22-30) mmol/L BUN (7-17) mg/dL Creatinine (0.52-1.04) mg/dL Glucose (74-99) mg/dL POC Glucose (mg/dL) 109 H (75-99) mg/dL Calcium (8.4-10.2) mg/dL AST (14-36) U/L Total Protein (6.3-8.2) g/dL Albumin (3.5-5.0) g/dL Crossmatch Microbiology - Last 24 Hours (Table) 12/14/17 21:30 Gram Stain - Preliminary Sputum Sputum Culture - Preliminary Rachana albicans 12/15/17 10:40 Acid Fast Bacilli Smear - Final Bronchial Washings - Left Acid Fast Bacilli Culture - Preliminary 12/15/17 10:40 Gram Stain - Preliminary Bronchial Washings - Left Bronchial Washings Culture - Preliminary 12/15/17 10:40 Fungal Culture - Preliminary Bronchial Washings - Left - Imaging and Cardiology Chest x-ray: report reviewed, image reviewed Assessment and Plan (1) Acute blood loss as cause of postoperative anemia Current Visit: Yes Status: Acute Code(s): D62 - ACUTE POSTHEMORRHAGIC ANEMIA SNOMED Code(s): 01413929929239094 (2) CAD (coronary artery disease) Current Visit: Yes Status: Chronic Code(s): I25.10 - ATHSCL HEART DISEASE OF [place] CORONARY ARTERY W/O ANG PCTRS SNOMED Code(s): 81100843 (3) Family history of coronary artery disease Current Visit: Yes Status: Chronic Code(s): Z82.49 - FAMILY HX OF ISCHEM HEART DIS AND OTH DIS OF THE CIRC SYS SNOMED Code(s): 215865995 (4) Hyperlipidemia Current Visit: Yes Status: Chronic Code(s): E78.5 - HYPERLIPIDEMIA, UNSPECIFIED SNOMED Code(s): 10220807 (5) Hypertension Current Visit: Yes Status: Chronic Code(s): I10 - ESSENTIAL (PRIMARY) HYPERTENSION SNOMED Code(s): 42731770 (6) Severe mitral regurgitation Current Visit: Yes Status: Chronic Code(s): I34.0 - NONRHEUMATIC MITRAL ( VALVE) INSUFFICIENCY SNOMED Code(s): 88063245 (7) Stenosis of left subclavian artery Current Visit: Yes Status: Chronic Code(s): I77.1 - STRICTURE OF ARTERY SNOMED Code(s): 56081018396332423 (8) PAD (peripheral artery disease) Current Visit: No Status: Acute Code(s): I73.9 - PERIPHERAL VASCULAR DISEASE , UNSPECIFIED SNOMED Code(s): 460127579 (9) History of GI bleed Current Visit: No Status: Resolved Code(s): Z87.19 - PERSONAL HISTORY OF OTHER DISEASES OF THE DIGESTIVE SYSTEM SNOMED Code(s): 632211684 (10) Paroxysmal atrial fibrillation Current Visit: No Status: Resolved Code(s): I48.0 - PAROXYSMAL ATRIAL FIBRILLATION SNOMED Code(s): 133817489 (11) Elevated aspartate aminotransferase level Current Visit: Yes Status: Acute Code(s): R74.0 - NONSPEC ELEV OF LEVELS OF TRANSAMNS & LACTIC ACID DEHYDRGNSE SNOMED Code(s): 390905895 Plan: 1. Continue low-dose aspirin, statin, subcutaneous heparin, beta krunal. Will increase beta krunal therapy as tolerated. 2. Continue amiodarone for history of paroxysmal atrial fibrillation on home amiodarone. 3. Pulmonary and ventilator management per Dr. Garcia's recommendations. 4. Urine culture from December 04 was positive for E. coli and Serratia, currently on meropenem and vancomycin. IV antibiotic management per Dr. Olivera. 5. Sternal incision cultured, consistent with Serratia. Placed on meropenem per Dr. Olivera. Wound VAC in place to be changed Wednesday, Wednesday, and Fridays. Dr. Krause consulted for future wound flap closure. Sternal debridement tissue specimen Gram stain showing Serratia marcescens. 6. Will monitor labs, chest x-rays. 7. Bronchodilators per pulmonology management. 8. We will hold Coumadin for now until sternal muscle flap surgery is complete. 9. GI/DVT prophylaxis. 10. 1 unit of PRBCs for hemoglobin of 6.7. 11. Wound VAC dressing changed today with Dr. Back. She will be scheduled for sternal muscle flap surgery soon. 12. Continue Mason catheter for accurate I&O. 13. Continue tube feedings for nutritional support. 14. More recommendations as patient progresses in her care. Time with Patient: Greater than 30
[2017-12-16 17:24] LABS: Glucose,Whole Blood 97 mg/dL (75-99)
--- NOTE | 2017-12-16 18:42 | P.PN ---
Subjective Progress Note Date: 12/16/17 Progress note being dictated for Dr. Lugo Interval history: This is 67-year-old female status post CABG, mitral valve replacement, status post multiple blood products transfusions. Remains vent dependent on 40% FiO2/+5 of PEEP. Chest x-ray reporting fluid overload, improvement in volume status, aeration.Maintained on norepinephrine, Primacor, dopamine and insulin drip. Cardiac index 2.7. Telemetry atrial flutter/sinus tach. Tube feeding initiated via OG tube. Hemoglobin 7.3, Platelets decreased to 64 today, maintained on low-dose aspirin. Review systems unable to obtain as patient sedated and on mechanical ventilation. Active Medications Albuterol/Ipratropium (Duoneb 0.5 Mg-3 Mg/3 Ml Soln) 3 ml INHALATION RT-Q4H [facility] Last Admin: 11/29/17 15:17 Dose: 3 ml Albuterol/Ipratropium (Duoneb 0.5 Mg-3 Mg/3 Ml Soln) 3 ml INHALATION RT-Q2H PRN PRN Reason: Shortness Of Breath Or Wheezing Amiodarone HCl (Cordarone) 200 mg PO BID [facility] Aspirin (Aspirin) 81 mg PO DAILY [facility] Last Admin: 11/29/17 08:54 Dose: 81 mg Atorvastatin Calcium (Lipitor) 40 mg PO DAILY [facility] Last Admin: 11/29/17 08:54 Dose: 40 mg Benzocaine/Menthol (Cepacol Lozenge) 1 each MUCOUS MEM Q2H PRN PRN Reason: Sore Throat Bisacodyl (Dulcolax) 10 mg RECTAL DAILY PRN PRN Reason: Constipation Chlorhexidine Gluconate (Peridex) 15 ml MUCOUS MEM BID [facility] Last Admin: 11/29/17 08:48 Dose: 15 ml Furosemide (Lasix) 40 mg IV ONCE ONE Stop: 11/29/17 20:01 Propofol 1,000 mg/ IV Solution 100 mls @ 0 mls/hr IV .Q0M [facility]; Titrate PRN Reason: Protocol Last Admin: 11/29/17 17:54 Dose: 26.13 mcg/kg/min, 17.2 mls/hr Norepinephrine Bitartrate (Levophed-0.9% Nacl 16 Mg/250ml Pmx) 16 mg in 250 mls @ 0 mls/hr IV .Q0M [facility]; Titrate PRN Reason: Protocol Last Admin: 11/29/17 17:54 Dose: 2 mcg/min, 1.875 mls/hr Sodium Chloride (Saline 0.45%) 1,000 mls @ 30 mls/hr IV .Q24H [facility] Last Admin: 11/29/17 10:28 Dose: Not Given Milrinone Lactate/Dextrose 20 (mg/ IV Solution) 100 mls @ 6.58 mls/hr IV .[id number] [facility] PRN Reason: 0.2 MCG/KG/MIN Last Admin: 11/29/17 15:38 Dose: 0.2 mcg/kg/min, 6.58 mls/hr Insulin Aspart (Novolog) 0 unit SQ Q6HR [facility] PRN Reason: Protocol Last Admin: 11/29/17 12:36 Dose: Not Given Magnesium Hydroxide (Milk Of Magnesia) 2,400 mg PO BID PRN PRN Reason: Constipation Metoprolol Tartrate (Lopressor) 12.5 mg PO BID [facility] Last Admin: 11/29/17 08:55 Dose: 12.5 mg Miscellaneous Information (Magnesium Per Protocol) 1 each MISCELLANE DAILY PRN ; Protocol PRN Reason: Per Protocol Miscellaneous Information (Phosphorus Per Protocol) 1 each MISCELLANE DAILY PRN ; Protocol PRN Reason: Per Protocol Miscellaneous Information (Potassium Per Protocol) 1 each MISCELLANE DAILY PRN ; Protocol PRN Reason: Per Protocol Miscellaneous Information (Potassium Per Protocol) 1 each MISCELLANE DAILY PRN ; Protocol PRN Reason: Per Protocol Morphine Sulfate (Morphine Oral Dana 2mg/Ml) 6 mg PO Q2H PRN PRN Reason: Severe Pain Ondansetron HCl (Zofran) 4 mg IVP Q6HR PRN PRN Reason: Nausea And Vomiting Pantoprazole Sodium (Protonix) 40 mg IVP DAILY [facility] Last Admin: 11/29/17 08:55 Dose: 40 mg Senna/Docusate Sodium (Senokot-S) 2 each PO HS [facility] Last Admin: 11/28/17 20:41 Dose: 2 each Sodium Chloride (Saline Flush) 10 ml IV BID [facility] Last Admin: 11/29/17 08:56 Dose: 10 ml 11/30/2017 Chest x-ray reporting increased congestion, received additional Lasix. extubated this morning, currently maintained on BiPAP. Norepinephrine weaned off this morning. Maintained on Primacor, cardiac index 2.6. Received 1 dose of Lasix IV push. Renal function improving. Hemoglobin 7, platelets increased to 74. Atrial flutter per telemetry. Review systems unable to obtain as patient BiPAP dependent. Active Medications Generic Name Dose Route Start Last Admin Trade Name Freq PRN Reason Stop Dose Admin Albuterol/Ipratropium 3 ml 11/25/17 20:00 11/30/17 15:23 Duoneb 0.5 Mg-3 Mg/3 Ml Soln INHALATION 3 ml RT-Q4H [facility] Administration Albuterol/Ipratropium 3 ml 11/26/17 17:53 Duoneb 0.5 Mg-3 Mg/3 Ml Soln INHALATION RT-Q2H PRN Shortness Of Breath Or Wheezing Amiodarone HCl 200 mg 11/29/17 21:00 11/30/17 08:14 Cordarone PO 200 mg BID [facility] Administration Aspirin 81 mg 11/26/17 10:15 11/30/17 08:15 Aspirin PO 81 mg DAILY [facility] Administration Atorvastatin Calcium 40 mg 11/26/17 09:00 11/30/17 08:14 Lipitor PO 40 mg DAILY [facility] Administration Benzocaine/Menthol 1 each 11/25/17 19:03 Cepacol Lozenge MUCOUS MEM Q2H PRN Sore Throat Bisacodyl 10 mg 11/26/17 17:52 Dulcolax RECTAL DAILY PRN Constipation Fondaparinux 2.5 mg 11/30/17 11:30 11/30/17 13:23 Arixtra SQ 2.5 mg DAILY [facility] Administration Norepinephrine Bitartrate 16 mg in 250 mls @ 0 mls/hr 11/26/17 04:15 11:58 Levophed-0.9% Nacl 16 Mg/250ml Pmx IV 0 mcg/min .Q0M [facility] 0 mls/hr Protocol Titration Titrate Sodium Chloride 1,000 mls @ 10 mls/hr 11/26/17 10:15 11/30/17 12:51 Saline 0.45% IV Not Given .Q24H [facility] Milrinone Lactate/Dextrose 20 100 mls @ 6.58 mls/hr 11/29/17 15:00 11/30/17 08:16 mg/ IV Solution IV 0.2 mcg/kg/min .[id number] [facility] 6.58 mls/hr 0.2 MCG/KG/MIN Infusion Insulin Aspart 0 unit 11/29/17 12:00 11/30/17 12:50 Novolog SQ Not Given Q6HR [facility] Protocol Magnesium Hydroxide 2,400 mg 11/26/17 17:53 Milk Of Magnesia PO BID PRN Constipation Metoprolol Tartrate 12.5 mg 11/26/17 09:00 11/30/17 08:15 Lopressor PO 12.5 mg BID [facility] Administration Miscellaneous Information 1 each 11/25/17 19:03 Magnesium Per Protocol MISCELLANE DAILY PRN Per Protocol Protocol Miscellaneous Information 1 each 11/25/17 19:03 Phosphorus Per Protocol MISCELLANE DAILY PRN Per Protocol Protocol Miscellaneous Information 1 each 11/25/17 19:03 Potassium Per Protocol MISCELLANE DAILY PRN Per Protocol Protocol Miscellaneous Information 1 each 11/29/17 12:01 Potassium Per Protocol MISCELLANE DAILY PRN Per Protocol Protocol Morphine Sulfate 6 mg 11/29/17 13:31 Morphine Oral Dana 2mg/Ml PO Q2H PRN Severe Pain Ondansetron HCl 4 mg 11/25/17 19:03 Zofran IVP Q6HR PRN Nausea And Vomiting Pantoprazole Sodium 40 mg 11/26/17 09:00 11/30/17 08:15 Protonix IVP 40 mg DAILY [facility] Administration Senna/Docusate Sodium 2 each 11/26/17 21:00 11/29/17 20:40 Senokot-S PO 2 each HS [facility] Administration Sodium Chloride 10 ml 11/25/17 21:00 11/30/17 08:15 Saline Flush IV 10 ml BID [facility] Administration 12/01/2017 Breathing improving, weaned off of BiPAP and down to 6 L high flow. Wheezing resolved. Chest x-ray reports improvement. Staff reports patient appeared to be choking on pills last night, speech therapy consulted. Receiving one unit of packed RBCs for hemoglobin of 6.7. Mediastinal chest tubes discontinued, left pleural chest tube remains. Maintained on Primacor. Telemetry atrial flutter. Review of systems: CONSTITUTIONAL: No fever, no malaise HEENT: No recent visual problems or hearing problems. Denied any sore throat. CARDIOVASCULAR: No chest pain, no palpitations, no syncope. PULMONARY: Improving shortness of breath, no cough, no hemoptysis. GASTROINTESTINAL: No diarrhea, no nausea, no vomiting, no abdominal pain. Normoactive bowel sounds. NEUROLOGICAL: No headaches, diffuse weakness, no numbness. HEMATOLOGICAL: Denies any bleeding or petechiae. GENITOURINARY: Denies any burning micturition, frequency, or urgency. ENDOCRINE: Denies any polyuria or polydipsia. PSYCHIATRIC: No anxiety, no depression Active Medications Hydrocodone Bitart/Acetaminophen (Gillett 5-325) 1 each PO Q4HR PRN PRN Reason: MILD TO MODERATE Pain Last Admin: 12/01/17 22:44 Dose: 1 each Hydrocodone Bitart/Acetaminophen (Gillett 5-325) 2 each PO Q4HR PRN PRN Reason: MODERATE TO SEVERE Pain Albuterol/Ipratropium (Duoneb 0.5 Mg-3 Mg/3 Ml Soln) 3 ml INHALATION RT-Q4H [facility] Last Admin: 12/02/17 15:06 Dose: 3 ml Albuterol/Ipratropium (Duoneb 0.5 Mg-3 Mg/3 Ml Soln) 3 ml INHALATION RT-Q2H PRN PRN Reason: Shortness Of Breath Or Wheezing Last Admin: 12/01/17 18:09 Dose: 3 ml Amiodarone HCl (Cordarone) 200 mg PO BID [facility] Last Admin: 12/02/17 08:10 Dose: 200 mg Aspirin (Aspirin) 81 mg PO DAILY [facility] Last Admin: 12/02/17 08:10 Dose: 81 mg Atorvastatin Calcium (Lipitor) 40 mg PO DAILY [facility] Last Admin: 12/02/17 08:10 Dose: 40 mg Benzocaine/Menthol (Cepacol Lozenge) 1 each MUCOUS MEM Q2H PRN PRN Reason: Sore Throat Bisacodyl (Dulcolax) 10 mg RECTAL DAILY PRN PRN Reason: Constipation Budesonide (Pulmicort) 1 mg INHALATION RT-BID [facility] Last Admin: 12/02/17 07:19 Dose: 1 mg Fondaparinux (Arixtra) 2.5 mg SQ DAILY [facility] Last Admin: 12/02/17 08:10 Dose: 2.5 mg Formoterol Fumarate (Perforomist) 20 mcg INHALATION RT-BID [facility] Last Admin: 12/02/17 07:36 Dose: 20 mcg Norepinephrine Bitartrate (Levophed-0.9% Nacl 16 Mg/250ml Pmx) 16 mg in 250 mls @ 0 mls/hr IV .Q0M [facility]; Titrate PRN Reason: Protocol Last Titration: 11/30/17 11:58 Dose: 0 mcg/min, 0 mls/hr Sodium Chloride (Saline 0.45%) 1,000 mls @ 10 mls/hr IV .Q24H [facility] Last Admin: 12/01/17 14:04 Dose: 10 mls/hr Milrinone Lactate/Dextrose 20 (mg/ IV Solution) 100 mls @ 6.58 mls/hr IV .[id number] [facility] PRN Reason: 0.2 MCG/KG/MIN Last Admin: 12/02/17 08:57 Dose: 0.2 mcg/kg/min, 6.58 mls/hr Insulin Aspart (Novolog) 0 unit SQ Q6HR [facility] PRN Reason: Protocol Last Admin: 12/02/17 12:53 Dose: Not Given Magnesium Hydroxide (Milk Of Magnesia) 2,400 mg PO BID PRN PRN Reason: Constipation Methylprednisolone Sodium Succinate (Solu-Medrol) 30 mg IV Q8HR [facility] Last Admin: 12/02/17 08:10 Dose: 30 mg Metoprolol Tartrate (Lopressor) 25 mg PO BID [facility] Last Admin: 12/02/17 08:59 Dose: 25 mg Miscellaneous Information (Magnesium Per Protocol) 1 each MISCELLANE DAILY PRN ; Protocol PRN Reason: Per Protocol Miscellaneous Information (Phosphorus Per Protocol) 1 each MISCELLANE DAILY PRN ; Protocol PRN Reason: Per Protocol Miscellaneous Information (Potassium Per Protocol) 1 each MISCELLANE DAILY PRN ; Protocol PRN Reason: Per Protocol Miscellaneous Information (Potassium Per Protocol) 1 each MISCELLANE DAILY PRN ; Protocol PRN Reason: Per Protocol Ondansetron HCl (Zofran) 4 mg IVP Q6HR PRN PRN Reason: Nausea And Vomiting Pantoprazole Sodium (Protonix) 40 mg IVP DAILY [facility] Last Admin: 12/02/17 08:10 Dose: 40 mg Senna/Docusate Sodium (Senokot-S) 2 each PO HS [facility] Last Admin: 12/01/17 21:55 Dose: 2 each Sodium Chloride (Saline Flush) 10 ml IV BID [facility] Last Admin: 12/02/17 12:51 Dose: 10 ml 12/02/17 Much more alert today. Oxygen weaned further down to 5 L nasal cannula, maintaining O2 sats in the high 90s. Pleural chest tube discontinued. Chest x- ray reporting probable right lower lobe atelectasis/effusion. Underwent modified barium swallow, with recommendations of regular diet, thin liquids, chin tuck, no straw, small bites/sepsis/sips; no impairment with exception of mild transient penetration with thin liquids which patient independently cleared. Yesterday receive 1 unit of packed RBCs with current hemoglobin 8. Weaning of Primacor in progress. 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 Review of systems: CONSTITUTIONAL: No fever, no malaise, no fatigue. HEENT: No recent visual problems or hearing problems. Denied any sore throat. CARDIOVASCULAR: No chest pain, no palpitations, no syncope. PULMONARY: Minimal shortness of breath, no cough, no hemoptysis. GASTROINTESTINAL: No diarrhea, no nausea, no vomiting, no abdominal pain. Normoactive bowel sounds. NEUROLOGICAL: No headaches, no weakness, no numbness. HEMATOLOGICAL: Denies any bleeding or petechiae. GENITOURINARY: Denies any burning micturition, frequency, or urgency. MUSCULOSKELETAL/RHEUMATOLOGICAL: Denies any joint pain, swelling, or any muscle pain. ENDOCRINE: Denies any polyuria or polydipsia. PSYCHIATRIC: No anxiety, no depression The rest of the 14 point review of systems is negative Active Medications Generic Name Dose Route Start Last Admin Trade Name Freq PRN Reason Stop Dose Admin Hydrocodone Bitart/Acetaminophen 1 each 12/01/17 12:20 12/01/17 22:44 Gillett 5-325 PO 1 each Q4HR PRN Administration MILD TO MODERATE Pain Hydrocodone Bitart/Acetaminophen 2 each 12/01/17 12:20 Gillett 5-325 PO Q4HR PRN MODERATE TO SEVERE Pain Albuterol/Ipratropium 3 ml 11/25/17 20:00 12/02/17 15:06 Duoneb 0.5 Mg-3 Mg/3 Ml Soln INHALATION 3 ml RT-Q4H [facility] Administration Albuterol/Ipratropium 3 ml 11/26/17 17:53 12/01/17 18:09 Duoneb 0.5 Mg-3 Mg/3 Ml Soln INHALATION 3 ml RT-Q2H PRN Administration Shortness Of Breath Or Wheezing Amiodarone HCl 200 mg 11/29/17 21:00 12/02/17 08:10 Cordarone PO 200 mg BID [facility] Administration Aspirin 81 mg 11/26/17 10:15 12/02/17 08:10 Aspirin PO 81 mg DAILY [facility] Administration Atorvastatin Calcium 40 mg 11/26/17 09:00 12/02/17 08:10 Lipitor PO 40 mg DAILY [facility] Administration Benzocaine/Menthol 1 each 11/25/17 19:03 Cepacol Lozenge MUCOUS MEM Q2H PRN Sore Throat Bisacodyl 10 mg 11/26/17 17:52 Dulcolax RECTAL DAILY PRN Constipation Budesonide 1 mg 12/01/17 20:00 12/02/17 07:19 Pulmicort INHALATION 1 mg RT-BID [facility] Administration Fondaparinux 2.5 mg 11/30/17 11:30 12/02/17 08:10 Arixtra SQ 2.5 mg DAILY [facility] Administration Formoterol Fumarate 20 mcg 12/01/17 20:00 12/02/17 07:36 Perforomist INHALATION 20 mcg RT-BID [facility] Administration Norepinephrine Bitartrate 16 mg in 250 mls @ 0 mls/hr 11/26/17 04:15 11:58 Levophed-0.9% Nacl 16 Mg/250ml Pmx IV 0 mcg/min .Q0M [facility] 0 mls/hr Protocol Titration Titrate Sodium Chloride 1,000 mls @ 10 mls/hr 11/26/17 10:15 12/02/17 15:41 Saline 0.45% IV Not Given .Q24H [facility] Milrinone Lactate/Dextrose 20 100 mls @ 6.58 mls/hr 11/29/17 15:00 12/02/17 08:57 mg/ IV Solution IV 0.2 mcg/kg/min .[id number] [facility] 6.58 mls/hr 0.2 MCG/KG/MIN Administration Insulin Aspart 0 unit 11/29/17 12:00 12/02/17 12:53 Novolog SQ Not Given Q6HR [facility] Protocol Magnesium Hydroxide 2,400 mg 11/26/17 17:53 Milk Of Magnesia PO BID PRN Constipation Methylprednisolone Sodium Succinate 30 mg 12/01/17 16:00 12/02/17 08:10 Solu-Medrol IV 30 mg Q8HR [facility] Administration Metoprolol Tartrate 25 mg 12/02/17 09:00 12/02/17 08:59 Lopressor PO 25 mg BID [facility] Administration Miscellaneous Information 1 each 11/25/17 19:03 Magnesium Per Protocol MISCELLANE DAILY PRN Per Protocol Protocol Miscellaneous Information 1 each 11/25/17 19:03 Phosphorus Per Protocol MISCELLANE DAILY PRN Per Protocol Protocol Miscellaneous Information 1 each 11/25/17 19:03 Potassium Per Protocol MISCELLANE DAILY PRN Per Protocol Protocol Miscellaneous Information 1 each 11/29/17 12:01 Potassium Per Protocol MISCELLANE DAILY PRN Per Protocol Protocol Ondansetron HCl 4 mg 11/25/17 19:03 Zofran IVP Q6HR PRN Nausea And Vomiting Pantoprazole Sodium 40 mg 11/26/17 09:00 12/02/17 08:10 Protonix IVP 40 mg DAILY [facility] Administration Senna/Docusate Sodium 2 each 11/26/17 21:00 12/01/17 21:55 Senokot-S PO 2 each HS [facility] Administration Sodium Chloride 10 ml 11/25/17 21:00 12/02/17 12:51 Saline Flush IV 10 ml BID [facility] Administration 12/03/17 maintained on nebulized bronchodilators, steroids,patient tachypneic, requiring BiPap throughout today off and on. Chest x-ray suggestive of fluid overload. Received additional Lasix. Maintained on oral amiodarone, remains in a-flutter. Overdrive atrial pacing attempted unsuccessfully. Digoxin 2 ordered. Pacer wires discontinued today. Stool at bedside with PT OT, remains extremely weak. Primacor weaned off yesterday. 2017 currently in atrial fibrillation with heart rates up into the 150s, scheduled for cardioversion tomorrow. INR 2.2. Patient currently wearing BiPAP ,has required on and off all day. Chest ultrasound reporting bilateral pleural effusions, larger on the right. Thoracentesis on hold, awaiting cardioversion.Chest x-ray reporting prominent interstitium and central vascularity, increased bibasilar density. Attempting diuresing with Lasix and Zaroxolyn. Review systems unable to obtain as patient currently on BiPAP. Active Medications Hydrocodone Bitart/Acetaminophen (Gillett 5-325) 1 each PO Q4HR PRN PRN Reason: MILD TO MODERATE Pain Last Admin: 12/07/17 10:48 Dose: 1 each Hydrocodone Bitart/Acetaminophen (Gillett 5-325) 2 each PO Q4HR PRN PRN Reason: MODERATE TO SEVERE Pain Last Admin: 12/07/17 16:39 Dose: 2 each Albuterol/Ipratropium (Duoneb 0.5 Mg-3 Mg/3 Ml Soln) 3 ml INHALATION RT-Q2H PRN PRN Reason: Shortness Of Breath Or Wheezing Last Admin: 12/01/17 18:09 Dose: 3 ml Albuterol/Ipratropium (Duoneb 0.5 Mg-3 Mg/3 Ml Soln) 3 ml INHALATION RT-QID [facility] Last Admin: 12/07/17 16:43 Dose: 3 ml Amiodarone HCl (Cordarone) 200 mg PO BID [facility] Aspirin (Aspirin) 81 mg PO DAILY [facility] Last Admin: 12/07/17 08:53 Dose: 81 mg Atorvastatin Calcium (Lipitor) 40 mg PO DAILY [facility] Last Admin: 12/07/17 08:53 Dose: 40 mg Benzocaine/Menthol (Cepacol Lozenge) 1 each MUCOUS MEM Q2H PRN PRN Reason: Sore Throat Bisacodyl (Dulcolax) 10 mg RECTAL DAILY PRN PRN Reason: Constipation Budesonide (Pulmicort) 1 mg INHALATION RT-BID [facility] Last Admin: 12/07/17 08:36 Dose: 1 mg Escitalopram Oxalate (Lexapro) 10 mg PO HS [facility] Furosemide (Lasix) 40 mg IV Q12HR [facility] Last Admin: 12/07/17 08:33 Dose: 40 mg Piperacillin/Tazobactam/ (Dextrose 3.375 gm/ IV Solution) 50 mls @ 12.5 mls/hr IVPB Q8HR [facility] Last Admin: 12/07/17 16:39 Dose: 12.5 mls/hr Sodium Chloride (Saline 0.9%) 1,000 mls @ 20 mls/hr IV .Q24H [facility] Last Admin: 12/07/17 13:00 Dose: 20 mls/hr Lactated Ringer's (Lactated Ringers) 1,000 mls @ 20 mls/hr IV .Q24H [facility] Last Admin: 12/06/17 20:45 Dose: 20 mls/hr Insulin Aspart (Novolog) 0 unit SQ ACHS [facility] PRN Reason: Protocol Last Admin: 12/07/17 13:01 Dose: 2 unit Magnesium Hydroxide (Milk Of Magnesia) 2,400 mg PO BID PRN PRN Reason: Constipation Methylprednisolone Sodium Succinate (Solu-Medrol) 30 mg IV Q8HR [facility] Last Admin: 12/07/17 16:39 Dose: 30 mg Metolazone (Zaroxolyn) 5 mg PO DAILY [facility] Last Admin: 12/07/17 08:53 Dose: 5 mg Metoprolol Tartrate (Lopressor) 50 mg PO BID [facility] Last Admin: 12/07/17 08:53 Dose: 50 mg Miscellaneous Information (Magnesium Per Protocol) 1 each MISCELLANE DAILY PRN ; Protocol PRN Reason: Per Protocol Miscellaneous Information (Phosphorus Per Protocol) 1 each MISCELLANE DAILY PRN ; Protocol PRN Reason: Per Protocol Miscellaneous Information (Potassium Per Protocol) 1 each MISCELLANE DAILY PRN ; Protocol PRN Reason: Per Protocol Ondansetron HCl (Zofran) 4 mg IVP Q6HR PRN PRN Reason: Nausea And Vomiting Pantoprazole Sodium (Protonix) 40 mg PO AC-BRKFST [facility] Last Admin: 12/07/17 08:53 Dose: 40 mg Senna/Docusate Sodium (Senokot-S) 2 each PO HS [facility] Last Admin: 12/06/17 20:29 Dose: 2 each Sodium Chloride (Saline Flush) 10 ml IV BID [facility] Last Admin: 12/07/17 10:48 Dose: 10 ml 12/07/2017 Underwent successful cardioversion this morning,360J X1, remains in sinus rhythm. Currently wearing BiPAP. Nonproductive cough. Diuresing well on Lasix and Zaroxolyn with 24-hour I&O reflecting a negative fluid balance. Chest x-ray reporting stable bilateral areas of infiltrate and pleural effusions , possible CHF, possible pneumonia. INR 3.8, afebrile, WBC 17. Maintained on Zosyn. Sternal wound drainage, cultures sent. 12/08/2017 Cardioverted yesterday, remains in sinus rhythm .continues requiring BiPAP for majority of morning. Echo reporting-limited study for assessment of pericardial effusion, small generalized pericardial effusion, low normal LV function, EF 50-55%. Chest CT reporting sternal dehiscence, moderate to large pericardial effusion, possible mass effect onto the left ventricle, no significant right atrial dilatation to clearly indicate tamponade, moderate left pleural effusion with adjacent complete left lower lobar and inferior lingular collapse, small right pleural effusion, right basilar subsegmental atelectasis. Chest x-ray noted. Blood sugars controlled. INR 4.8, received vitamin K this morning. Diuresing well on Lasix IV push, Zaroxolyn. 24-hour I& O reflecting a negative fluid balance, decreased weight. Midsternal incision open, draining large amount of serosanguineous drainage. Currently maintained on Zosyn. Wound cultures pending. Afebrile. Review systems unable to obtain as patient currently on BiPAP. Active Medications Generic Name Dose Route Start Last Admin Trade Name Freq PRN Reason Stop Dose Admin Hydrocodone Bitart/Acetaminophen 1 each 12/01/17 12:20 12/08/17 06:26 Gillett 5-325 PO 1 each Q4HR PRN Administration MILD TO MODERATE Pain Hydrocodone Bitart/Acetaminophen 2 each 12/01/17 12:20 12/08/17 18:41 Gillett 5-325 PO 2 each Q4HR PRN Administration MODERATE TO SEVERE Pain Acetazolamide Sodium 250 mg 12/08/17 09:15 12/08/17 11:16 Diamox IV 12/08/17 21:01 250 mg Q12HR [facility] Administration Albuterol/Ipratropium 3 ml 11/26/17 17:53 12/08/17 05:16 Duoneb 0.5 Mg-3 Mg/3 Ml Soln INHALATION 3 ml RT-Q2H PRN Administration Shortness Of Breath Or Wheezing Albuterol/Ipratropium 3 ml 12/03/17 08:00 12/08/17 15:38 Duoneb 0.5 Mg-3 Mg/3 Ml Soln INHALATION 3 ml RT-QID [facility] Administration Amiodarone HCl 200 mg 12/08/17 09:00 12/08/17 08:24 Cordarone PO 200 mg BID [facility] Administration Aspirin 81 mg 11/26/17 10:15 12/08/17 08:24 Aspirin PO 81 mg DAILY [facility] Administration Atorvastatin Calcium 40 mg 11/26/17 09:00 12/08/17 08:25 Lipitor PO 40 mg DAILY [facility] Administration Benzocaine/Menthol 1 each 11/25/17 19:03 Cepacol Lozenge MUCOUS MEM Q2H PRN Sore Throat Bisacodyl 10 mg 11/26/17 17:52 Dulcolax RECTAL DAILY PRN Constipation Budesonide 1 mg 12/01/17 20:00 12/08/17 09:26 Pulmicort INHALATION 1 mg RT-BID [facility] Administration Escitalopram Oxalate 10 mg 12/07/17 21:00 12/07/17 20:10 Lexapro PO 10 mg HS [facility] Administration Piperacillin/Tazobactam/ 50 mls @ 12.5 mls/hr 12/04/17 16:00 12/08/17 16:11 Dextrose 3.375 gm/ IV Solution IVPB 12.5 mls/hr Q8HR [facility] Administration Sodium Chloride 1,000 mls @ 20 mls/hr 12/06/17 10:45 12/08/17 13:47 Saline 0.9% IV Not Given .Q24H [facility] Insulin Aspart 0 unit 12/02/17 21:00 12/08/17 17:46 Novolog SQ 1 unit ACHS [facility] Administration Protocol Magnesium Hydroxide 2,400 mg 11/26/17 17:53 Milk Of Magnesia PO BID PRN Constipation Metoprolol Tartrate 50 mg 12/06/17 21:00 12/08/17 08:24 Lopressor PO 50 mg BID [facility] Administration Miscellaneous Information 1 each 11/25/17 19:03 Magnesium Per Protocol MISCELLANE DAILY PRN Per Protocol Protocol Miscellaneous Information 1 each 11/25/17 19:03 Phosphorus Per Protocol MISCELLANE DAILY PRN Per Protocol Protocol Miscellaneous Information 1 each 11/25/17 19:03 Potassium Per Protocol MISCELLANE DAILY PRN Per Protocol Protocol Ondansetron HCl 4 mg 11/25/17 19:03 Zofran IVP Q6HR PRN Nausea And Vomiting Pantoprazole Sodium 40 mg 12/05/17 07:30 12/08/17 08:25 Protonix PO 40 mg [id number] CARLEE Administration Senna/Docusate Sodium 2 each 11/26/17 21:00 12/07/17 20:16 Senokot-S PO 2 each HS CARLEE Administration Sodium Chloride 10 ml 11/25/17 21:00 12/08/17 11:16 Saline Flush IV 10 ml BID CARLEE Administration 12/09/17 Remains in sinus rhythm. mostly BiPAP dependent. Incentive spirometer up to 700 -750. Chest x-ray reporting improving moderate pleural effusion, cardiomegaly. Sternal wound culture positive for gram-negative bacilli. Maintained on Zosyn. Diet intake fair. Blood sugars controlled. Review systems unable to be performed as patient on BiPAP Active Medications Hydrocodone Bitart/Acetaminophen (Gillett 5-325) 1 each PO Q4HR PRN PRN Reason: MILD TO MODERATE Pain Last Admin: 12/09/17 10:03 Dose: 1 each Hydrocodone Bitart/Acetaminophen (Gillett 5-325) 2 each PO Q4HR PRN PRN Reason: MODERATE TO SEVERE Pain Last Admin: 12/09/17 14:51 Dose: 2 each Albuterol/Ipratropium (Duoneb 0.5 Mg-3 Mg/3 Ml Soln) 3 ml INHALATION RT-Q2H PRN PRN Reason: Shortness Of Breath Or Wheezing Last Admin: 12/08/17 05:16 Dose: 3 ml Albuterol/Ipratropium (Duoneb 0.5 Mg-3 Mg/3 Ml Soln) 3 ml INHALATION RT-QID [facility] Last Admin: 12/09/17 15:42 Dose: 3 ml Amiodarone HCl (Cordarone) 200 mg PO BID [facility] Last Admin: 12/09/17 08:12 Dose: 200 mg Aspirin (Aspirin) 81 mg PO DAILY [facility] Last Admin: 12/09/17 08:13 Dose: 81 mg Atorvastatin Calcium (Lipitor) 40 mg PO DAILY [facility] Last Admin: 12/09/17 08:13 Dose: 40 mg Benzocaine/Menthol (Cepacol Lozenge) 1 each MUCOUS MEM Q2H PRN PRN Reason: Sore Throat Bisacodyl (Dulcolax) 10 mg RECTAL DAILY PRN PRN Reason: Constipation Budesonide (Pulmicort) 1 mg INHALATION RT-BID [facility] Last Admin: 12/09/17 07:45 Dose: 1 mg Escitalopram Oxalate (Lexapro) 10 mg PO HS [facility] Last Admin: 12/08/17 20:33 Dose: 10 mg Piperacillin/Tazobactam/ (Dextrose 3.375 gm/ IV Solution) 50 mls @ 12.5 mls/hr IVPB Q8HR [facility] Last Admin: 12/09/17 08:16 Dose: 12.5 mls/hr Sodium Chloride (Saline 0.9%) 1,000 mls @ 20 mls/hr IV .Q24H [facility] Last Admin: 12/09/17 08:17 Dose: 20 mls/hr Insulin Aspart (Novolog) 0 unit SQ ACHS [facility] PRN Reason: Protocol Last Admin: 12/09/17 12:23 Dose: Not Given Magnesium Hydroxide (Milk Of Magnesia) 2,400 mg PO BID PRN PRN Reason: Constipation Metoprolol Tartrate (Lopressor) 50 mg PO BID [facility] Last Admin: 12/09/17 08:13 Dose: 50 mg Miscellaneous Information (Magnesium Per Protocol) 1 each MISCELLANE DAILY PRN ; Protocol PRN Reason: Per Protocol Miscellaneous Information (Phosphorus Per Protocol) 1 each MISCELLANE DAILY PRN ; Protocol PRN Reason: Per Protocol Miscellaneous Information (Potassium Per Protocol) 1 each MISCELLANE DAILY PRN ; Protocol PRN Reason: Per Protocol Ondansetron HCl (Zofran) 4 mg IVP Q6HR PRN PRN Reason: Nausea And Vomiting Pantoprazole Sodium (Protonix) 40 mg PO AC-BRKFST [facility] Last Admin: 12/09/17 08:11 Dose: 40 mg Senna/Docusate Sodium (Senokot-S) 2 each PO HS [facility] Last Admin: 12/08/17 20:37 Dose: 2 each Sodium Chloride (Saline Flush) 10 ml IV BID [facility] Last Admin: 12/09/17 08:13 Dose: 10 ml 12/13/17 maintained on Merrem and vancomycin. BiPAP dependent. Worsening chest x-ray, chest CT reporting near complete collapse of left lung, enlarging moderate to large pericardial effusion. Echo pending. Multiple episodes of diarrhea. Atrial flutter with RVR, Review systems unable to be performed as patient on BiPAP Active Medications Generic Name Dose Route Start Last Admin Trade Name Freq PRN Reason Stop Dose Admin Hydrocodone Bitart/Acetaminophen 1 each 12/01/17 12:20 12/13/17 08:08 Gillett 5-325 PO 1 each Q4HR PRN Administration MILD TO MODERATE Pain Hydrocodone Bitart/Acetaminophen 2 each 12/01/17 12:20 12/13/17 15:08 Gillett 5-325 PO 2 each Q4HR PRN Administration MODERATE TO SEVERE Pain Albuterol/Ipratropium 3 ml 11/26/17 17:53 12/08/17 05:16 Duoneb 0.5 Mg-3 Mg/3 Ml Soln INHALATION 3 ml RT-Q2H PRN Administration Shortness Of Breath Or Wheezing Albuterol/Ipratropium 3 ml 12/03/17 08:00 12/13/17 16:02 Duoneb 0.5 Mg-3 Mg/3 Ml Soln INHALATION Not Given RT-QID [facility] Amiodarone HCl 200 mg 12/11/17 20:00 12/13/17 09:12 Cordarone PO 200 mg BID@0800,2000 [facility] Administration Aspirin 81 mg 11/26/17 10:15 12/13/17 09:13 Aspirin PO 81 mg DAILY [facility] Administration Atorvastatin Calcium 40 mg 11/26/17 09:00 12/13/17 09:13 Lipitor PO 40 mg DAILY [facility] Administration Benzocaine/Menthol 1 each 11/25/17 19:03 Cepacol Lozenge MUCOUS MEM Q2H PRN Sore Throat Bisacodyl 10 mg 11/26/17 17:52 12/12/17 17:45 Dulcolax RECTAL 10 mg DAILY PRN Administration Constipation Budesonide 1 mg 12/01/17 20:00 12/13/17 07:46 Pulmicort INHALATION 1 mg RT-BID [facility] Administration Escitalopram Oxalate 10 mg 12/07/17 21:00 12/12/17 20:16 Lexapro PO 10 mg HS [facility] Administration Heparin Sodium (Porcine) 5,000 unit 12/10/17 16:00 12/13/17 09:14 Heparin SQ 5,000 unit Q8HR [facility] Administration Sodium Chloride 1,000 mls @ 20 mls/hr 12/06/17 10:45 12/13/17 09:49 Saline 0.9% IV 20 mls/hr .Q24H [facility] Administration Meropenem 1 gm/ Sodium 100 mls @ 100 mls/hr 12/09/17 22:00 12/13/17 09:46 Chloride IVPB 100 mls/hr Q8HR [facility] Administration Vancomycin HCl 1,750 mg/ 250 mls @ 125 mls/hr 12/13/17 14:00 12/13/17 14:15 Sodium Chloride IVPB 125 mls/hr Q12HR@0000,1200 [facility] Administration Insulin Aspart 0 unit 12/02/17 21:00 12/13/17 12:34 Novolog SQ Not Given ACHS [facility] Protocol Lactobacillus Acidoph/Bulgaricus 1 each 12/13/17 16:00 Lactinex PO TID [facility] Magnesium Hydroxide 2,400 mg 11/26/17 17:53 Milk Of Magnesia PO BID PRN Constipation Metoprolol Tartrate 50 mg 12/11/17 22:00 12/13/17 09:13 Lopressor PO 50 mg BID@1000,2200 [facility] Administration Miscellaneous Information 1 each 11/25/17 19:03 Magnesium Per Protocol MISCELLANE DAILY PRN Per Protocol Protocol Miscellaneous Information 1 each 11/25/17 19:03 Phosphorus Per Protocol MISCELLANE DAILY PRN Per Protocol Protocol Miscellaneous Information 1 each 11/25/17 19:03 Potassium Per Protocol MISCELLANE DAILY PRN Per Protocol Protocol Ondansetron HCl 4 mg 11/25/17 19:03 Zofran IVP Q6HR PRN Nausea And Vomiting Pantoprazole Sodium 40 mg 12/05/17 07:30 12/13/17 09:13 Protonix PO 40 mg AC-BRKFST [facility] Administration Senna/Docusate Sodium 2 each 11/26/17 21:00 12/12/17 20:16 Senokot-S PO 2 each HS [facility] Administration Sodium Chloride 10 ml 11/25/17 21:00 12/13/17 09:49 Saline Flush IV 10 ml BID [facility] Administration 12/14/17 maintained on Merrem and vancomycin per infectious disease .remains BiPAP dependent. Chest x-ray reporting persistent significant left lung collapse with minimal improvement. Scheduled for bronchoscopy this afternoon. INR 2.1, receiving FFP. No diarrhea today. Telemetry atrial fibrillation/ flutter, heart rate 110s to 120s. 12/15/2017 developed worsened respiratory distress despite BiPAP, diuretics, antiarrhythmics, intubated last night. Received 2 more units of FFP this morning, underwent bronchoscopy this morning; mucous plug discovered in the left lower lobe. Pleural Cultures pending. Maintained on FiO2 45%/+5 of PEEP. Continues on IV antibiotics. Currently on 2-1/2 mics of Levophed and diprovan drips. Atrial tachycardia, heart rate in the 130s. Amiodarone discontinued as per cardiology. Developed increased bleeding from wound VAC with turning during bath-Anticoagulation placed on hold. Afebrile. 12/16/17 remains vent dependent, FiO2 40%/+5 of PEEP. Sedated on Diprovan. Requiring low-dose of Levophed. Marginal urine output, received albumin last night. Tachycardia resolved, sinus rhythm per telemetry. Wound VAC dressing changed today, serosanguineous drainage. Bronchoscopy yesterday, cultures pending. Blood sugars controlled. Objective - Vital Signs Vital signs: Vital Signs Temp 99.2 F 12/16/17 12:00 Pulse 82 12/16/17 15:22 Resp 14 12/16/17 14:00 BP 128/52 12/16/17 09:50 Pulse Ox 100 12/16/17 14:00 Intake & Output 12/15/17 12/16/17 12/16/17 18:59 06:59 18:59 Intake Total 2239 553.661 0531.126 Output Total 324 374 190 Balance 1915 400.575 8837.126 Weight 103 kg 109 kg 109 kg Intake: IV 1150 180 510 FFP 600 Meropenem 1 gm In Sodium 100 100 Chloride 0.9% 100 ml @ 100 mls/hr IVPB Q8HR [facility] Rx#:[id number] Potassium Phosphate 10 200 mmol In Sodium Chloride 0 .9% 100 ml @ 50 mls/hr IV Q2H [facility] Rx#:[id number] Sodium Chloride 0.9% 1, 200 180 160 000 ml @ 20 mls/hr IV . Q24H [facility] Rx#:[id number] Vancomycin 1,750 mg In 250 Sodium Chloride 0.9% 250 ml @ 125 mls/hr IVPB Q12HR@0000,1200 [facility] Rx#: [id number] Intake, IV Titration 200 284.667 517.126 Amount ACETAMINOPHEN IV (For NPO 100 ) 1,000 mg In Empty Bag 1 bag @ 400 mls/hr IVPB Q6HR [facility] Rx#:[id number] Norepinephrin 16 mg-0.9% 217.126 Ns Pmx 16 mg In 250 ml @ Titrate IV .Q0M [facility] Rx#: [id number] Propofol 1,000 mg In 200 284.667 200 Empty Bag 1 bag @ Titrate IV .Q0M [facility] Rx#: [id number] Tube Feeding 260 360 280 Blood Product 629 620 Ffp 24 Cpd Unit 297 [id number] Ffp 24 Cpd Unit 332 [id number] Rc As-1 Unit 310 [id number] Other 90 Output: Drainage 100 Medial Chest Incision - 100 Woundvac Urine 324 274 190 Other: Voiding Method Indwelling Catheter Indwelling Catheter Indwelling Catheter ABP, PAP, CO, CI - Last Documented Arterial Blood Pressure 109/43 Pulmonary Artery Pressure 38/33 Cardiac Output 5.8 Cardiac Index 2.9 - Exam PHYSICAL EXAM: VITAL SIGNS: As above GENERAL: Sitting up in bed, sedated on mechanical ventilation HEENT: Conjunctivae normal. eyes normal. NECK: No JVD. No thyroid enlargement. CARDIOVASCULAR: S1, S2 muffled ,no murmur. RESPIRATION: Breath sounds diminished in the bases. Left pleural chest tube with serosanguineous drainage .Sternal wound with wound vac present- serosanguineous drainage. ABDOMEN: Soft . No guarding. no masses palpable.Bowel sounds heard. Extremities: Positive edema PSYCHIATRY:/NERVOUS SYSTEM: Unable to assess as patient sedated and on mechanical ventilation Skin: Midsternal incision open,large amount of serosanguineous drainage,with packing, right medial buttock & right buttock skin tears, type II - III, Right lower arm Skin tear,type II, Lower back shearing injury with sloughing, excoriation, erythema. Microbiology 12/14/17 21:30 Sputum Gram Stain - Preliminary 12/14/17 21:30 Sputum Sputum Culture - Preliminary Rachana albicans 12/15/17 10:40 Bronchial Washings - Left Acid Fast Bacilli Smear - Final 12/15/17 10:40 Bronchial Washings - Left Acid Fast Bacilli Culture - Preliminary 12/15/17 10:40 Bronchial Washings - Left Gram Stain - Preliminary 12/15/17 10:40 Bronchial Washings - Left Bronchial Washings Culture - Preliminary 12/15/17 10:40 Bronchial Washings - Left Fungal Culture - Preliminary 12/10/17 10:50 Chest Anaerobic Culture - Final 12/10/17 10:40 Chest Anaerobic Culture - Final 12/10/17 10:45 Chest Anaerobic Culture - Final 12/13/17 05:27 Urine,Catheterized Urine Culture - Final 12/10/17 10:40 Chest Gram Stain - Final 12/10/17 10:40 Chest Wound Culture - Final Serratia marcescens 12/10/17 10:45 Chest Gram Stain - Final 12/10/17 10:45 Chest Tissue Culture - Final Serratia marcescens 12/10/17 10:50 Chest Gram Stain - Final 12/10/17 10:50 Chest Tissue Culture - Final Serratia marcescens 12/10/17 10:50 Chest Acid Fast Bacilli Smear - Final 12/10/17 10:50 Chest Acid Fast Bacilli Culture - Preliminary 12/10/17 10:45 Chest Acid Fast Bacilli Smear - Final 12/10/17 10:45 Chest Acid Fast Bacilli Culture - Preliminary 12/10/17 10:50 Chest Fungal Culture - Preliminary 12/10/17 10:40 Chest Fungal Culture - Preliminary 12/10/17 10:45 Chest Fungal Culture - Preliminary 12/07/17 15:40 Chest Gram Stain - Final 12/07/17 15:40 Chest Wound Culture - Final Serratia marcescens 12/04/17 10:00 Urine,Voided Urine Culture - Final Escherichia coli Serratia marcescens 11/26/17 04:00 Sputum Gram Stain - Final 11/26/17 04:00 Sputum Sputum Culture - Final - Labs CBC & Chem 7: 12/16/17 04:15 12/16/17 04:15 Labs: Abnormal Lab Results - Last 24 Hours (Table) 12/14/17 12/16/17 12/16/17 Range/Units 10:10 00:17 04:15 WBC 17.0 H (3.8-10.6) k/uL RBC 2.49 L (3.80-5.40) m/uL Hgb 6.7 L* (11.4-16.0) gm/dL Hct 21.9 L (34.0-46.0) % MCHC 30.7 L (31.0-37.0) g/dL RDW 20.1 H (11.5-15.5) % Neutrophils # 15.4 H (1.3-7.7) k/uL Lymphocytes # 0.8 L (1.0-4.8) k/uL PT (9.0-12.0) sec INR (<1.2) ABG pH (7.35-7.45) ABG pO2 (83-108) mmHg ABG HCO3 (21-25) mmol/L ABG Total CO2 (19-24) mmol/L ABG O2 Saturation (94-97) % Carbon Dioxide (22-30) mmol/L BUN (7-17) mg/dL Creatinine (0.52-1.04) mg/dL Glucose (74-99) mg/dL POC Glucose (mg/dL) 100 H (75-99) mg/dL Calcium (8.4-10.2) mg/dL AST (14-36) U/L Total Protein (6.3-8.2) g/dL Albumin (3.5-5.0) g/dL Crossmatch See Detail 12/16/17 12/16/17 12/16/17 Range/Units 04:15 04:15 06:03 WBC (3.8-10.6) k/uL RBC (3.80-5.40) m/uL Hgb (11.4-16.0) gm/dL Hct (34.0-46.0) % MCHC (31.0-37.0) g/dL RDW (11.5-15.5) % Neutrophils # (1.3-7.7) k/uL Lymphocytes # (1.0-4.8) k/uL PT 15.3 H (9.0-12.0) sec INR 1.7 H (<1.2) ABG pH (7.35-7.45) ABG pO2 (83-108) mmHg ABG HCO3 (21-25) mmol/L ABG Total CO2 (19-24) mmol/L ABG O2 Saturation (94-97) % Carbon Dioxide 34 H (22-30) mmol/L BUN 40 H (7-17) mg/dL Creatinine 0.50 L (0.52-1.04) mg/dL Glucose 104 H (74-99) mg/dL POC Glucose (mg/dL) 107 H (75-99) mg/dL Calcium 8.0 L (8.4-10.2) mg/dL AST 52 H (14-36) U/L Total Protein 5.4 L (6.3-8.2) g/dL Albumin 2.5 L (3.5-5.0) g/dL Crossmatch 12/16/17 12/16/17 Range/Units 08:07 12:27 WBC (3.8-10.6) k/uL RBC (3.80-5.40) m/uL Hgb (11.4-16.0) gm/dL Hct (34.0-46.0) % MCHC (31.0-37.0) g/dL RDW (11.5-15.5) % Neutrophils # (1.3-7.7) k/uL Lymphocytes # (1.0-4.8) k/uL PT (9.0-12.0) sec INR (<1.2) ABG pH 7.50 H (7.35-7.45) ABG pO2 149 H (83-108) mmHg ABG HCO3 33 H (21-25) mmol/L ABG Total CO2 34 H (19-24) mmol/L ABG O2 Saturation 100.0 H (94-97) % Carbon Dioxide (22-30) mmol/L BUN (7-17) mg/dL Creatinine (0.52-1.04) mg/dL Glucose (74-99) mg/dL POC Glucose (mg/dL) 109 H (75-99) mg/dL Calcium (8.4-10.2) mg/dL AST (14-36) U/L Total Protein (6.3-8.2) g/dL Albumin (3.5-5.0) g/dL Crossmatch Microbiology - Last 24 Hours (Table) 12/14/17 21:30 Gram Stain - Preliminary Sputum Sputum Culture - Preliminary Rachana albicans 12/15/17 10:40 Acid Fast Bacilli Smear - Final Bronchial Washings - Left Acid Fast Bacilli Culture - Preliminary 12/15/17 10:40 Gram Stain - Preliminary Bronchial Washings - Left Bronchial Washings Culture - Preliminary 12/15/17 10:40 Fungal Culture - Preliminary Bronchial Washings - Left Assessment and Plan Assessment: 1. Status post CABG with mitral valve replacement 2. Acute blood loss anemia with massive blood transfusions postoperatively, in a patient with history of GI bleed 3. Hypertension 4. Left subclavian stenosis 5. Proximal atrial fibrillation/flutter status post cardioversion with recurrence of atrial fibrillation 6. Acute Hypoxic respiratory failure, Re intubated. 7. Obesity, BMI 41.6 8. S/P PICC line placement 9. 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 Acute UTI Serratia marcescens, E. coli 11. Bilateral pleural effusions, improved with diuretics. Possible aspiration pneumonia, possible fluid overload. 12. Sternal wound debridement, culture growing Serratia marcescens, placement of wound VAC. 13. Pressure ulceration of back and buttocks, stage III 14. Diarrhea, ruling out C. difficile colitis. 15. Status post bronchoscopy with left lower lobe mucous plug discovered, cultures pending Plan: Continue on current medication regime , amiodarone, metoprolol , monitoring and symptomatic treatment. Bronchoscopy culture pending. Maintain IV antibiotics.Continue nebulized bronchodilators, IV steroids. Sternal wound flap grafting pending.Prognosis guarded given multiple complex medical issues per Further recommendations to follow. The impression and plan of care has been dictated as directed. : I performed a history and examination of this patient, discussed the same with the dictator. I agree with the dictator's note ,documented as a scribe. Any additional findings or plans will be noted.
--- NOTE | 2017-12-16 19:03 | OP ---
OPERATIVE REPORT DATE OF PROCEDURE: 12/16/2017. PREOPERATIVE DIAGNOSIS: Open sternal wound. POSTOPERATIVE DIAGNOSE: Open sternal wound. PROCEDURE: Exchange of a sternal wound VAC. ANESTHESIA: None. SPECIMENS: None. COMPLICATIONS: None. INDICATION: The patient is a 67-year-old female who underwent mitral valve replacement and bypass surgery several weeks ago. She had subsequent sternal wound debridement and is currently awaiting a muscle flap closure. The wound VAC dressing had been placed and subsequently changed 3 days ago. Replacement of the wound VAC was recommended. PROCEDURE: In the ICU, the patient's chest was prepped and draped in a sterile fashion. The previously placed wound VAC was carefully excised. It was not adhered to the underlying heart, soft tissue, or sternum. The heart was easily visible as it was situated between the sternal halves. There was no evidence of bleeding. There was no purulent drainage. The wound did not appear to be soupy. There was some granulation tissue noted at the base of the wound including over the heart itself. There was fibrinous exudate noted. Four pieces of white wound VAC were then reinserted into the sternal cavity. DuoDERM was placed along the edges. A large Tegaderm was placed over the surface. Suction was attached with a good seal noted. The patient appeared to tolerate the procedure well. There were no immediate complications. The plan is for muscle flap closure by Plastic Surgery sometime early next week. ELAN / ROLANDN: [id number] / MARAH
[2017-12-16] MEDS: ESCITALOPRAM 10 MG TAB PO SCH (20:28)
[2017-12-16] MEDS: SENNOSIDES-DOCUSATE SODIUM 1 EACH TAB PO SCH (20:30)
--- NOTE | 2017-12-16 23:16 | P.PN ---
Subjective Progress Note Date: 12/16/17 Principal diagnosis: Sternal wound dehiscence Pleasant 67-year-old female who has an extensive past medical history who is now 14 days postoperative from her open heart procedure it which point in time a mitral valve placement occurred, reverse saphenous vein coronary artery bypass grafting 1 to obtuse marginal, Maze procedure and ligation of the left atrial appendage all occurred interoperatively left ventricular wall tear occurred and was repaired. The patient has a known history of multiple medical troubles before her surgery that included her obesity, COPD and marked deconditioning. Patient has had difficulties recently that included urinary tract infection with E. coli and Serratia and has been treated with intravenous antibiotic therapy with Zosyn. She was having some improvement but then developed dehiscence of her sternal wound and there are plans for surgical debridement tomorrow wound culture showing gram-negative bacilli and with at the infectious diseases consultation was requested. The patient continues to have significant respiratory difficulties and is currently on BiPAP for support. Postoperatively the patient was hemodynamically unstable which made even turning of the patient not possible which has resulted in unavoidable areas of skin breakdown, that are now treatable given her improvement 12/10/2017 reveals the patient to be postoperative from the sternal wound debridement. The surgical note as well as discussion with the surgical team reveals evidence of poor bone quality and all of the sternal wires had pulled through her bony areas. Negative pressure therapy is in place. She is tolerating this well. Plastic surgery consult has been requested for reconstruction of her chest in the near future. Gram-negative bacilli growing from the sternal wound. She is quite comfortable after procedure, chest tube was placed of the left cavity and this is improved some left lung function and she seems less short of breath. The daughter is present and her questions were answered. 12/11/2017 reveals the patient to have had some respiratory distress today and is back on BiPAP at this time. She relates that her pain is under much significant control. Been no other new acute complaints are being made. 12/13/2017 the patient remains in the ICU she is currently on BiPAP but relates that she is quite comfortable. We will work with the nursing staff to change her VAC dressing at this time. await the plastic surgery timeline. 12/15/2017 reveals the patient to remain in intensive care unit, her status has worsened and that she developed flash pulmonary edema and respiratory failure requiring reintubation sedation mechanical ventilation. She underwent bronchoscopy today for removal of mucous plugs and to help with the collapsed left lower lobe. The patient has require some vasopressor support but is more stable this afternoon than earlier. She is sedated and comfortable. She has significant decline of hemoglobin is 7.6. Anticoagulation was held. Is being closely monitored by surgery and they await the plastic surgery intervention. 12/16/2017 cases briefly discussed with the cardiothoracic nurse practitioner in that the wound VAC is being changed today. It is unchanged with no difficulties. No further bleeding is noted. Plastic surgery evaluation apparently will occur tomorrow so the surgical plan can be devised. Objective - Vital Signs Vital signs: Vital Signs Temp 98.4 F 12/16/17 20:00 Pulse 74 12/16/17 22:00 Resp 14 12/16/17 22:00 BP 128/52 12/16/17 09:50 Pulse Ox 100 12/16/17 22:00 Intake & Output 12/16/17 12/16/17 12/17/17 06:59 18:59 06:59 Intake Total 964.591 1319.126 589 Output Total 374 330 122 Balance 790.496 2084.126 467 Weight 109 kg 109 kg Intake: IV 180 690 189 ACETAMINOPHEN IV (For NPO 100 ) 1,000 mg In Empty Bag 1 bag @ 400 mls/hr IVPB Q6HR [facility] Rx#:[id number] Meropenem 1 gm In Sodium 200 Chloride 0.9% 100 ml @ 100 mls/hr IVPB Q8HR [facility] Rx#:[id number] Pressure Bag 9 Sodium Chloride 0.9% 1, 180 240 80 000 ml @ 20 mls/hr IV . Q24H [facility] Rx#:[id number] Vancomycin 1,750 mg In 250 Sodium Chloride 0.9% 250 ml @ 125 mls/hr IVPB Q12HR@0000,1200 [facility] Rx#: [id number] Intake, IV Titration 284.667 617.126 Amount ACETAMINOPHEN IV (For NPO 100 ) 1,000 mg In Empty Bag 1 bag @ 400 mls/hr IVPB Q6HR [facility] Rx#:[id number] Norepinephrin 16 mg-0.9% 217.126 Ns Pmx 16 mg In 250 ml @ Titrate IV .Q0M [facility] Rx#: [id number] Propofol 1,000 mg In 284.667 300 Empty Bag 1 bag @ Titrate IV .Q0M [facility] Rx#: [id number] Oral 100 Tube Feeding 360 440 240 Blood Product 620 Rc As-1 Unit 310 [id number] Other 150 60 Output: Chest Tube Drainage 0 Pleural Catheter Left 0 Drainage 100 10 Medial Chest Incision - 100 10 Woundvac Urine 274 330 112 Other: Voiding Method Indwelling Catheter Indwelling Catheter Indwelling Catheter ABP, PAP, CO, CI - Last Documented Arterial Blood Pressure 108/46 Pulmonary Artery Pressure 38/33 Cardiac Output 5.8 Cardiac Index 2.9 - Exam Obese 67-year-old woman who is now intubated sedated and mechanically ventilated HEENT: Anicteric conjunctiva are pink and moist nasal mucosa grossly intact without significant lesions, there is no thrush. Oral mucosa is dry but no swapnil lesions could be seen Neck: The neck is supple without significant lymphadenopathy or thyromegaly. Lungs: Symmetrical air entry is noted. There is scattered crackles but no swapnil bronchial sounds Heart: Irregular with an audible S1 and S2 soft S4 no audible murmur no click or rub Chest: The patient's mid sternotomy incision has now been debrided and negative pressure therapy is in place. There is no significant tenderness. The drainage is being suctioned into the canister of the negative pressure system. There was some play drainage that is now more clear Abdomen: Obese, Positive bowel sounds soft and nontender without palpable masses or organomegaly. There was no guarding or rebound. Extremities: The upper and lower extremities have evidence of edema harvest site is intact there is some bruising that is noted especially on the left groin area. IV sites are intact. Skin: There are no new lesions that are seen and evaluated skin, surgery has requested the patient not be turned and consult. The buttocks ulcerations are not evaluated today. Neuro: Sedated while she is being mechanically ventilated - Labs CBC & Chem 7: 12/16/17 04:15 12/16/17 04:15 Labs: Abnormal Lab Results - Last 24 Hours (Table) 12/14/17 12/16/17 12/16/17 Range/Units 10:10 00:17 04:15 WBC 17.0 H (3.8-10.6) k/uL RBC 2.49 L (3.80-5.40) m/uL Hgb 6.7 L* (11.4-16.0) gm/dL Hct 21.9 L (34.0-46.0) % MCHC 30.7 L (31.0-37.0) g/dL RDW 20.1 H (11.5-15.5) % Neutrophils # 15.4 H (1.3-7.7) k/uL Lymphocytes # 0.8 L (1.0-4.8) k/uL PT (9.0-12.0) sec INR (<1.2) ABG pH (7.35-7.45) ABG pO2 (83-108) mmHg ABG HCO3 (21-25) mmol/L ABG Total CO2 (19-24) mmol/L ABG O2 Saturation (94-97) % Carbon Dioxide (22-30) mmol/L BUN (7-17) mg/dL Creatinine (0.52-1.04) mg/dL Glucose (74-99) mg/dL POC Glucose (mg/dL) 100 H (75-99) mg/dL Calcium (8.4-10.2) mg/dL AST (14-36) U/L Total Protein (6.3-8.2) g/dL Albumin (3.5-5.0) g/dL Crossmatch See Detail 12/16/17 12/16/17 12/16/17 Range/Units 04:15 04:15 06:03 WBC (3.8-10.6) k/uL RBC (3.80-5.40) m/uL Hgb (11.4-16.0) gm/dL Hct (34.0-46.0) % MCHC (31.0-37.0) g/dL RDW (11.5-15.5) % Neutrophils # (1.3-7.7) k/uL Lymphocytes # (1.0-4.8) k/uL PT 15.3 H (9.0-12.0) sec INR 1.7 H (<1.2) ABG pH (7.35-7.45) ABG pO2 (83-108) mmHg ABG HCO3 (21-25) mmol/L ABG Total CO2 (19-24) mmol/L ABG O2 Saturation (94-97) % Carbon Dioxide 34 H (22-30) mmol/L BUN 40 H (7-17) mg/dL Creatinine 0.50 L (0.52-1.04) mg/dL Glucose 104 H (74-99) mg/dL POC Glucose (mg/dL) 107 H (75-99) mg/dL Calcium 8.0 L (8.4-10.2) mg/dL AST 52 H (14-36) U/L Total Protein 5.4 L (6.3-8.2) g/dL Albumin 2.5 L (3.5-5.0) g/dL Crossmatch 12/16/17 12/16/17 Range/Units 08:07 12:27 WBC (3.8-10.6) k/uL RBC (3.80-5.40) m/uL Hgb (11.4-16.0) gm/dL Hct (34.0-46.0) % MCHC (31.0-37.0) g/dL RDW (11.5-15.5) % Neutrophils # (1.3-7.7) k/uL Lymphocytes # (1.0-4.8) k/uL PT (9.0-12.0) sec INR (<1.2) ABG pH 7.50 H (7.35-7.45) ABG pO2 149 H (83-108) mmHg ABG HCO3 33 H (21-25) mmol/L ABG Total CO2 34 H (19-24) mmol/L ABG O2 Saturation 100.0 H (94-97) % Carbon Dioxide (22-30) mmol/L BUN (7-17) mg/dL Creatinine (0.52-1.04) mg/dL Glucose (74-99) mg/dL POC Glucose (mg/dL) 109 H (75-99) mg/dL Calcium (8.4-10.2) mg/dL AST (14-36) U/L Total Protein (6.3-8.2) g/dL Albumin (3.5-5.0) g/dL Crossmatch Microbiology - Last 24 Hours (Table) 12/14/17 21:30 Gram Stain - Preliminary Sputum Sputum Culture - Preliminary Rachana albicans 12/15/17 10:40 Acid Fast Bacilli Smear - Final Bronchial Washings - Left Acid Fast Bacilli Culture - Preliminary 12/15/17 10:40 Gram Stain - Preliminary Bronchial Washings - Left Bronchial Washings Culture - Preliminary 12/15/17 10:40 Fungal Culture - Preliminary Bronchial Washings - Left Laboratory Results WBC 17.0 k/uL (3.8-10.6) H 12/16/17 04:15 RBC 2.49 m/uL (3.80-5.40) L 12/16/17 04:15 Hgb 6.7 gm/dL (11.4-16.0) L* 12/16/17 04:15 Hct 21.9 % (34.0-46.0) L 12/16/17 04:15 MCV 87.9 fL (80.0-100.0) 12/16/17 04:15 MCH 27.0 pg (25.0-35.0) 12/16/17 04:15 MCHC 30.7 g/dL (31.0-37.0) L 12/16/17 04:15 RDW 20.1 % (11.5-15.5) H 12/16/17 04:15 Plt Count 246 k/uL (150-450) 12/16/17 04:15 Neutrophils % 91 % 12/16/17 04:15 Neutrophils % (Manual) 98 % 12/05/17 04:25 Lymphocytes % 5 % 12/16/17 04:15 Lymphocytes % (Manual) 1 % 12/05/17 04:25 Monocytes % 3 % 12/16/17 04:15 Monocytes % (Manual) 1 % 12/05/17 04:25 Eosinophils % 1 % 12/16/17 04:15 Basophils % 0 % 12/16/17 04:15 Myelocytes % 1 % 12/03/17 04:15 Neutrophils # 15.4 k/uL (1.3-7.7) H 12/16/17 04:15 Neutrophils # (Manual) 26.95 k/uL (1.3-7.7) H 12/05/17 04:25 Lymphocytes # 0.8 k/uL (1.0-4.8) L 12/16/17 04:15 Lymphocytes # (Manual) 0.28 k/uL (1.0-4.8) L 12/05/17 04:25 Monocytes # 0.5 k/uL (0-1.0) 12/16/17 04:15 Monocytes # (Manual) 0.28 k/uL (0-1.0) 12/05/17 04:25 Eosinophils # 0.1 k/uL (0-0.7) 12/16/17 04:15 Basophils # 0.0 k/uL (0-0.2) 12/16/17 04:15 Myelocytes # (Manual) 0.17 k/uL (0) H 12/03/17 04:15 Nucleated RBCs 0 /100 WBC (0-0) 12/05/17 04:25 Manual Slide Review Performed 12/05/17 04:25 Polychromasia Present 12/03/17 04:15 Hypochromasia Marked 12/16/17 04:15 Poikilocytosis Moderate 12/16/17 04:15 Anisocytosis Moderate 12/16/17 04:15 Microcytosis Slight 11/25/17 14:40 Target Cells Present 12/03/17 04:15 PT 15.3 sec (9.0-12.0) H 12/16/17 04:15 INR 1.7 (<1.2) H 12/16/17 04:15 APTT 115.4 sec (22.0-30.0) H* 12/15/17 04:45 Fibrinogen 334 mg/dL (200-500) 11/26/17 04:22 Sample Site [place] 12/16/17 08:07 ABG pH 7.50 (7.35-7.45) H 12/16/17 08:07 ABG pCO2 43 mmHg (35-45) 12/16/17 08:07 ABG pO2 149 mmHg (83-108) H 12/16/17 08:07 ABG HCO3 33 mmol/L (21-25) H 12/16/17 08:07 ABG Total CO2 34 mmol/L (19-24) H 12/16/17 08:07 ABG O2 Saturation 100.0 % (94-97) H 12/16/17 08:07 ABG Base Excess 9.8 mmol/L 12/16/17 08:07 ABG Hematocrit 24 % (34.0-46.0) L 11/25/17 17:37 Robbi Test Yes 12/16/17 08:07 ABG Sodium 144 mmol/L (135-146) 11/25/17 17:37 ABG Potassium 3.8 mmol/L (3.4-4.5) 11/25/17 17:37 ABG Ionized Calcium 4.0 mg/dL (4.5-5.3) L 11/25/17 17:37 ABG Glucose 139 mg/dL (75-99) H 11/25/17 17:37 ABG Lactic Acid 2.8 mmol/L (0.5-1.6) H* 11/25/17 17:37 Hemoglobin 7.8 gm/dL (11.4-16.0) L 11/25/17 17:37 FiO2 45 % 12/16/17 08:07 Sodium 140 mmol/L (137-145) 12/16/17 04:15 Potassium 4.1 mmol/L (3.5-5.1) 12/16/17 04:15 Chloride 101 mmol/L (98-107) 12/16/17 04:15 Carbon Dioxide 34 mmol/L (22-30) H 12/16/17 04:15 Anion Gap 5 mmol/L 12/16/17 04:15 BUN 40 mg/dL (7-17) H 12/16/17 04:15 Creatinine 0.50 mg/dL (0.52-1.04) L 12/16/17 04:15 Est GFR (MDRD) Af Amer >60 (>60 ml/min/1.73 sqM) 12/07/17 04:00 Est GFR (MDRD) Non-Af >60 (>60 ml/min/1.73 sqM) 12/07/17 04:00 Est GFR (CKD-EPI)AfAm >90 (>60 ml/min/1.73 sqM) 12/16/17 04:15 Est GFR (CKD-EPI)NonAf >90 (>60 ml/min/1.73 sqM) 12/16/17 04:15 Glucose 104 mg/dL (74-99) H 12/16/17 04:15 POC Glucose (mg/dL) 97 mg/dL (75-99) 12/16/17 17:22 POC Glu Transportation Attendant ID Malick Navarrete 12/16/17 17:22 Calcium 8.0 mg/dL (8.4-10.2) L 12/16/17 04:15 Ionized Calcium Bruce 4.7 mg/dL (4.5-5.3) 12/11/17 15:45 Phosphorus 2.6 mg/dL (2.5-4.5) 12/16/17 04:15 Magnesium 2.3 mg/dL (1.6-2.3) 12/16/17 04:15 Total Bilirubin 0.6 mg/dL (0.2-1.3) 12/16/17 04:15 AST 52 U/L (14-36) H 12/16/17 04:15 ALT 33 U/L (9-52) 12/16/17 04:15 Alkaline Phosphatase 88 U/L (38-126) 12/16/17 04:15 Total Protein 5.4 g/dL (6.3-8.2) L 12/16/17 04:15 Albumin 2.5 g/dL (3.5-5.0) L 12/16/17 04:15 Arterial Blood Potassium 3.8 mmol/L (3.4-4.5) 11/25/17 17:37 Arterial Blood Glucose 139 mg/dL (75-99) H 11/25/17 17:37 Urine Color Yellow 12/04/17 10:00 Urine Appearance Cloudy (Clear) H 12/04/17 10:00 Urine pH 5.5 (5.0-8.0) 12/04/17 10:00 Ur Specific [place] 1.015 (1.001-1.035) 12/04/17 10:00 Urine Protein Trace (Negative) H 12/04/17 10:00 Urine Glucose (UA) Negative (Negative) 12/04/17 10:00 Urine Ketones Negative (Negative) 12/04/17 10:00 Urine Blood Negative (Negative) 12/04/17 10:00 Urine Nitrite Negative (Negative) 12/04/17 10:00 Urine Bilirubin Negative (Negative) 12/04/17 10:00 Urine Urobilinogen <2.0 mg/dL (<2.0) 12/04/17 10:00 Ur Leukocyte Esterase Negative (Negative) 12/04/17 10:00 Urine RBC 7 /hpf (0-5) H 12/04/17 10:00 Urine WBC 1 /hpf (0-5) 12/04/17 10:00 Ur Squamous Epith Cells 8 /hpf (0-4) H 12/04/17 10:00 Urine Bacteria Occasional /hpf (None) H 12/04/17 10:00 Urine Mucus Rare /hpf (None) H 12/04/17 10:00 Fluid Source Bronchial Wash 12/15/17 10:40 Fluid Color Colorless 12/15/17 10:40 Fluid Appearance Cloudy 12/15/17 10:40 Fluid RBC 150 /uL 12/15/17 10:40 Fluid Nucleated Cells 6900 /uL 12/15/17 10:40 Fluid Polynuclear WBCs 95 % 12/15/17 10:40 Fluid Mononuclear WBCs 5 % 12/15/17 10:40 Vancomycin Trough 30.6 ug/mL H* 12/15/17 11:30 Random Vancomycin 21.2 ug/mL 12/16/17 04:15 Heparin-Ind Plt Ab Scrn 0.231 OD (<0.4) 11/29/17 04:50 Virus Source See Below 12/15/17 10:40 Viral Test See Below 12/15/17 10:40 Virus Analysis Interp See Below 12/15/17 10:40 Blood Type A Positive 12/14/17 10:10 Blood Type Recheck No 12/14/17 10:10 Antibody Screen NEGATIVE 12/14/17 10:10 Crossmatch See Detail 12/14/17 10:10 Transfuse Cryo [id number] 11/26/17 00:39 Transfuse Plasma 12/15/2017 12/15/17 05:51 Transfuse Platelets [id number] 11/25/17 14:55 Spec Expiration Date 12/17/2017 - 0 12/14/17 10:10 Microbiology 12/14/17 21:30 Sputum Gram Stain - Preliminary 12/14/17 21:30 Sputum Sputum Culture - Preliminary Rachana albicans 12/15/17 10:40 Bronchial Washings - Left Acid Fast Bacilli Smear - Final 12/15/17 10:40 Bronchial Washings - Left Acid Fast Bacilli Culture - Preliminary 12/15/17 10:40 Bronchial Washings - Left Gram Stain - Preliminary 12/15/17 10:40 Bronchial Washings - Left Bronchial Washings Culture - Preliminary 12/15/17 10:40 Bronchial Washings - Left Fungal Culture - Preliminary 12/10/17 10:50 Chest Anaerobic Culture - Final 12/10/17 10:40 Chest Anaerobic Culture - Final 12/10/17 10:45 Chest Anaerobic Culture - Final 12/13/17 05:27 Urine,Catheterized Urine Culture - Final 12/10/17 10:40 Chest Gram Stain - Final 12/10/17 10:40 Chest Wound Culture - Final Serratia marcescens 12/10/17 10:45 Chest Gram Stain - Final 12/10/17 10:45 Chest Tissue Culture - Final Serratia marcescens 12/10/17 10:50 Chest Gram Stain - Final 12/10/17 10:50 Chest Tissue Culture - Final Serratia marcescens 12/10/17 10:50 Chest Acid Fast Bacilli Smear - Final 12/10/17 10:50 Chest Acid Fast Bacilli Culture - Preliminary 12/10/17 10:45 Chest Acid Fast Bacilli Smear - Final 12/10/17 10:45 Chest Acid Fast Bacilli Culture - Preliminary 12/10/17 10:50 Chest Fungal Culture - Preliminary 12/10/17 10:40 Chest Fungal Culture - Preliminary 12/10/17 10:45 Chest Fungal Culture - Preliminary 12/07/17 15:40 Chest Gram Stain - Final 12/07/17 15:40 Chest Wound Culture - Final Serratia marcescens 12/04/17 10:00 Urine,Voided Urine Culture - Final Escherichia coli Serratia marcescens 11/26/17 04:00 Sputum Gram Stain - Final 11/26/17 04:00 Sputum Sputum Culture - Final Assessment and Plan (1) Severe mitral regurgitation Current Visit: Yes Status: Chronic Code(s): I34.0 - NONRHEUMATIC MITRAL ( VALVE) INSUFFICIENCY SNOMED Code(s): 36581036 (2) CAD (coronary artery disease) Current Visit: Yes Status: Chronic Code(s): I25.10 - ATHSCL HEART DISEASE OF [place] CORONARY ARTERY W/O ANG PCTRS SNOMED Code(s): 47691437 (3) Acute blood loss as cause of postoperative anemia Current Visit: Yes Status: Acute Code(s): D62 - ACUTE POSTHEMORRHAGIC ANEMIA SNOMED Code(s): 00600963919266350 (4) Pressure ulcer of contiguous region involving back and buttock, stage 3 Current Visit: Yes Status: Acute Code(s): L89.43 - PRESSR ULCER OF CONTIG SITE OF BACK, BUTTOCK AND HIP, STG 3 SNOMED Code(s): 117280430 (5) Sternal wound dehiscence Narrative/Plan: 67-year-old woman presents to Hospital for treatment of her severe mitral irritation. Underwent mitral valve replacement, coronary artery bypass grafting 1, Maze procedure and clipping of the left atrial appendage with a complication of the left ventricular wall tear. The patient has had a very protracted recovery she is now day 14 post operative and is still having difficulty with her respiratory status requiring BiPAP. The patient's nutritional status and underlying comorbidities have complicated her care. She now has evidence of the sternal dehiscence with evidence of gram negatives bacilli being found at the site. There is evidence of urinary tract infection with E. coli and Serratia. This Serratia species is somewhat resistant and consequently we'll alter the current antimicrobial therapy from Zosyn to meropenem to ensure coverage for other potential pathogens that are resistant that could be in the sternal wound while we await cultures. The patient will be going to the operating room tomorrow for debridement and wound VAC placement. The cultures were further direct the overall course of antibiotics. Urinary infection appears to be doing somewhat better. The patient fortunately is comfortable and doing well with her BiPAP. 12/10/2017 the patient is status post surgery and actually is feeling a bit better this afternoon than yesterday. Her pain is quite well controlled. She is not on BiPAP. She is less short of breath. Wound culture has verified the Serratia marcescens to the sternal wound. We'll constantly continue the current course of meropenem due to some of the resistance patterns or seeing with the species. Continue local care at this point time with the negative pressure system to the sternal wound. The plastic surgery consult is being requested for reconstruction of her chest. She will require a course of intravenous antibiotic therapy given her complex infection. Dual-lumen PICC is already in place. We'll repeat the discharge planners as to her place of rehab. 12/11/2017 the patient is metabolically stable but is having difficulties with her respiratory status and is now back on BiPAP which has been intermittent over the last multiple days. Negative pressure therapy remains intact and the sternum and we await the plastic surgery intervention. 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 Continue supportive care, and nutritional supplements as possible to improve for tissue healing. 12/13/2017 patient is on BiPAP. She is comfortable at this time. Receiving her intravenous antibiotic therapy without difficulties. At this time the surgeon present in a sterile fashion the wound VAC is removed. Surgeon evaluates and then the wound VAC is reapplied with 2 of the white foam, periwound protected with DuoDERM no difficulty with the seal. Merrem continues. 12/15/2017 the patient has had marked worsening of her status in that she had respiratory failure requiring reintubation and mechanical ventilation. She is now sedated and comfortable but has had some hemodynamic instability and is now back on vasopressor therapy. Bronchoscopy is performed and suctioning of mucous plugs as allowed some improvement of her pulmonary status. Further cultures are process. Meropenem and vancomycin continue for the isolated Serratia and concerns for resistant gram-positive infection at this time. Plastic surgery evaluation is in process and surgical plans for later this week appear to be possible. 12/16/2017 reveals the patient to be stable from the last 24 hours. Her ventilatory settings are similar. She's currently not on vasopressor therapy. She is tolerating current antibiotic therapy well with no difficulties with rash and diarrhea or marked changes of her hematological parameters. She's had no further active bleeding. Sputum culture with gram-positive cocci seen vancomycin was added we await final cultures. Current Visit: Yes Status: Acute Code(s): T81.32XA - DISRUPTION OF INTERNAL OPERATION (SURGICAL) WOUND, NEC, INIT SNOMED Code(s): 71945266
[2017-12-17 00:13] LABS: Glucose,Whole Blood 115 mg/dL (75-99)
[2017-12-17] MEDS: ACETAMINOPHEN IV (For NPO) 1,000 MG in EMPTY BAG 1 BAG IVPB SCH ×2 (00:23→05:55)
[2017-12-17] MEDS: MEROPENEM 1 GM in SODIUM CHLORIDE 0.9% 100 ML IVPB SCH ×4 (00:23→23:10)
[2017-12-17] MEDS: INSULIN ASPART 100 UNIT/ML 1 ML 10 ML VIAL SQ SCH ×4 (00:23→19:08)
[2017-12-17] MEDS: PROPOFOL 1,000 MG in EMPTY BAG 1 BAG IV SCH ×2 (01:31→04:58)
[2017-12-17 04:57] LABS: Anisocytosis Moderate; Basophils % (A) 0 %; Eosinophils # (A) 0.1 k/uL (0-0.7); Eosinophils % (A) 1 %; HCT 25.3 % (34.0-46.0); HGB 8.1 gm/dL (11.4-16.0); Hypochromasia Marked; Lymphocytes % (A) 6 %; MCH 27.1 pg (25.0-35.0); MCHC 32.1 g/dL (31.0-37.0); MCV 84.3 fL (80.0-100.0); Mean Platelet Volume 7.2; Microcytosis Slight; Monocytes # (A) 0.4 k/uL (0-1.0); Monocytes % (A) 2 %; Neutrophils # (A) 16.1 k/uL (1.3-7.7); Neutrophils % (A) 91 %; Platelet Count 210 k/uL (150-450); Poikilocytosis Marked; RDW 20.4 % (11.5-15.5); WBC 17.8 k/uL (3.8-10.6)
[2017-12-17 05:01] LABS: INR 1.5 (<1.2); Prothrombin Time 13.8 sec (9.0-12.0)
[2017-12-17 05:08] LABS: ALT 32 U/L (9-52); AST 56 U/L (14-36); Albumin 2.3 g/dL (3.5-5.0); Alkaline Phosphatase 101 U/L (38-126); Anion Gap 5 mmol/L; Blood Urea Nitrogen 40 mg/dL (7-17); Calcium 7.9 mg/dL (8.4-10.2); Carbon Dioxide 33 mmol/L (22-30); Chloride 102 mmol/L (98-107); Glucose 106 mg/dL (74-99); Magnesium 2.3 mg/dL (1.6-2.3); Phosphorus 2.9 mg/dL (2.5-4.5); Potassium 3.8 mmol/L (3.5-5.1); Sodium 140 mmol/L (137-145); Total Bilirubin 0.6 mg/dL (0.2-1.3); Total Protein 5.2 g/dL (6.3-8.2)
[2017-12-17 06:04] LABS: Glucose,Whole Blood 107 mg/dL (75-99)
[2017-12-17] MEDS ORDERED: POTASSIUM BICARBONATE/CIT AC 20 MEQ TABLET.EFF NG-TUBE SCH (07:00)
[2017-12-17 07:56] LABS: ABG Base Excess 6.9 mmol/L; ABG HCO3 30 mmol/L (21-25); ABG Oxygen Saturation 99.6 % (94-97); ABG PCO2 41 mmHg (35-45); ABG PH 7.48 (7.35-7.45); ABG PO2 134 mmHg (83-108); ABG TCO2 32 mmol/L (19-24)
[2017-12-17] MEDS: BUDESONIDE 1 MG/2 ML NEBU INHALATION SCH ×2 (08:02→20:18)
[2017-12-17] MEDS: IPRATROPIUM-ALBUTEROL 3 ML NEB INHALATION SCH ×4 (08:02→20:18)
--- NOTE | 2017-12-17 09:12 | XR ---
EXAMINATION TYPE: XR chest 1V portable DATE OF EXAM: 12/17/2017 COMPARISON: 12/16/2017 HISTORY: Shortness of breath TECHNIQUE: Single frontal view of the chest is obtained. FINDINGS: ET and NG tube stable. Vascular stents noted. PICC line seen. Prosthetic heart valve and c ardiac lead noted. Bilateral infiltrate and pleural effusion. Correlate for possible left-sided chest tube or drain. IMPRESSION: Stable bilateral consolidation and pleural effusion greater on the left. Central venous congestion in the differential correlate clinically.
[2017-12-17] MEDS ORDERED: KETOROLAC 30 MG/ML 1 ML VIAL IVP STA (09:51)
[2017-12-17] MEDS: ATORVASTATIN 40 MG TAB PO SCH (10:27)
[2017-12-17] MEDS: CHLORHEXIDINE GLUCONATE 15 ML CUP MUCOUS MEM SCH ×2 (10:27→21:04)
[2017-12-17] MEDS: PANTOPRAZOLE 40 MG TABLET PO SCH (10:27)
[2017-12-17] MEDS: LACTOBACILLUS ACIDOPH & BULGAR 1 EACH PACKET PO SCH ×3 (10:27→21:04)
[2017-12-17] MEDS: METOPROLOL TARTRATE 50 MG TAB PO SCH ×2 (10:27→21:04)
[2017-12-17] MEDS: ASPIRIN 81 MG PO SCH (10:28)
[2017-12-17] MEDS: AMIODARONE 200 MG TAB PO SCH ×2 (10:28→21:04)
[2017-12-17] MEDS: SODIUM CHLORIDE 0.9% 1,000 ML IV SCH (10:29)
[2017-12-17] MEDS: VANCOMYCIN 1,750 MG in SODIUM CHLORIDE 0.9% 250 ML IVPB SCH (10:32)
--- NOTE | 2017-12-17 10:54 | P.PN ---
Subjective Progress Note Date: 12/17/17 Principal diagnosis: Severe mitral regurgitation. Coronary artery disease. Paroxysmal atrial fibrillation on Coumadin for anticoagulation. Recent hospitalization for lower GI bleed, duodenal ulcer. History of left subclavian stenosis with stent placement 2014 with recent discovery of critical re-in-stent stenosis. Previous tobacco dependence with preoperative FEV1 60% of predicted. Hypertension. Hyperlipidemia. Gallbladder disease. Family history of heart disease. Preoperative nasal swab positive for MRSA. Preoperative anemia. POD #22 mitral valve replacement using a 25 mm Ribera bioprosthetic tissue valve. Coronary artery bypass grafting 1, reverse saphenous vein graft to the obtuse marginal artery. Maze procedure. Endoscopic harvesting of the right greater saphenous vein. Epi-aortic ultrasound. Intraoperative transesophageal echocardiogram. Ligation of the left atrial appendage using a 40 mm AtriClip. Intraoperative left ventricular wall tear, an unexpected but potential outcome of surgery Acute blood loss anemia, and expected outcome given patient's preoperative anemia and intraoperative bleeding. Postoperative prolonged mechanical ventilation secondary to hemodynamic instability, and unexpected but potential outcome of surgery given the extensive nature of her perioperative course Sternal incision dehiscence, a possible outcome of surgery given patient's obesity, nutrition status, debility POD #7 sternal wound debridement with placement of wound VAC. Patient's currently lying in bed in no acute distress on mechanical ventilation. Awaiting plan for sternal flap closure. Objective - Vital Signs Vital signs: Vital Signs Temp 98.9 F 12/17/17 08:00 Pulse 71 12/17/17 09:00 Resp 14 12/17/17 09:00 BP 128/52 12/16/17 09:50 Pulse Ox 100 12/17/17 09:00 Intake & Output 12/16/17 12/17/17 12/17/17 18:59 06:59 18:59 Intake Total 2517.126 1729.532 186 Output Total 330 472 85 Balance 2187.126 1257.532 101 Weight 109 kg 108.6 kg Intake: IV 690 596 46 ACETAMINOPHEN IV (For NPO 200 ) 1,000 mg In Empty Bag 1 bag @ 400 mls/hr IVPB Q6HR [facility] Rx#:[id number] Meropenem 1 gm In Sodium 200 100 Chloride 0.9% 100 ml @ 100 mls/hr IVPB Q8HR [facility] Rx#:[id number] Pressure Bag 36 6 Sodium Chloride 0.9% 1, 240 260 40 000 ml @ 20 mls/hr IV . Q24H [facility] Rx#:[id number] Vancomycin 1,750 mg In 250 Sodium Chloride 0.9% 250 ml @ 125 mls/hr IVPB Q12HR@0000,1200 [facility] Rx#: [id number] Intake, IV Titration 617.126 173.532 Amount ACETAMINOPHEN IV (For NPO 100 ) 1,000 mg In Empty Bag 1 bag @ 400 mls/hr IVPB Q6HR [facility] Rx#:[id number] Norepinephrin 16 mg-0.9% 217.126 10.125 Ns Pmx 16 mg In 250 ml @ Titrate IV .Q0M [facility] Rx#: [id number] Propofol 1,000 mg In 300 163.407 Empty Bag 1 bag @ Titrate IV .Q0M [facility] Rx#: [id number] Oral 100 Tube Feeding 440 680 80 Blood Product 620 Rc As-1 Unit 310 [id number] Other 150 180 60 Output: Chest Tube Drainage 0 Pleural Catheter Left 0 Drainage 55 Medial Chest Incision - 55 Woundvac Urine 330 417 85 Other: Voiding Method Indwelling Catheter Indwelling Catheter ABP, PAP, CO, CI - Last Documented Arterial Blood Pressure 132/73 Pulmonary Artery Pressure 38/33 Cardiac Output 5.8 Cardiac Index 2.9 - Constitutional General appearance: Present: cooperative, no acute distress, obese - Respiratory Details: Lungs sounds diminished bilaterally. Respirations even, nonlabored on mechanical ventilation. Current ventilator settings assist control mode, FiO2 40%, tidal volume 500, respiratory rate 14, PEEP 5. 8.0 ET tube present, 20 at the lip. Left pleural chest tube present to continuous wall suction, 0 output in the last 4 hours, no air leak present. - Cardiovascular Details: S1, S2 present. Regular rate and rhythm, sinus rhythm on telemetry. Open chest with wound VAC in place. Palpable peripheral pulses bilaterally. Generalized edema present. Antiembolism stockings, SCDs present. Right brachial arterial line, left brachial PICC line present. - Gastrointestinal Gastrointestinal Comment(s): Abdomen soft, nontender, nondistended. Active bowel sounds 4 quadrants. OG tube present. Tolerating tube feedings and 40 mL per hour with minimal residual per nursing. - Genitourinary Genitourinary Comment(s): Mason present draining clear, yellow urine. Output 30-40 mL/h overnight. - Integumentary Integumentary Comment(s): Skin is warm and dry with evidence of good perfusion. Open chest with wound VAC to continuous suction, output 20 mL overnight. - Neurologic Neurologic Comment(s): Sedated with propofol. Does open eyes and follows commands off sedation per nursing. Nodded her head yes this morning when asked if she could hear us. - Musculoskeletal Musculoskeletal: Present: generalized weakness - Allied health notes Allied health notes reviewed: nursing - Labs CBC & Chem 7: 12/17/17 04:45 12/17/17 04:45 Labs: Abnormal Lab Results - Last 24 Hours (Table) 12/16/17 12/17/17 12/17/17 Range/Units 12:27 00:10 04:45 WBC 17.8 H (3.8-10.6) k/uL RBC 3.00 L (3.80-5.40) m/uL Hgb 8.1 L (11.4-16.0) gm/dL Hct 25.3 L (34.0-46.0) % RDW 20.4 H (11.5-15.5) % Neutrophils # 16.1 H (1.3-7.7) k/uL PT (9.0-12.0) sec INR (<1.2) ABG pH (7.35-7.45) ABG pO2 (83-108) mmHg ABG HCO3 (21-25) mmol/L ABG Total CO2 (19-24) mmol/L ABG O2 Saturation (94-97) % Carbon Dioxide (22-30) mmol/L BUN (7-17) mg/dL Glucose (74-99) mg/dL POC Glucose (mg/dL) 109 H 115 H (75-99) mg/dL Calcium (8.4-10.2) mg/dL AST (14-36) U/L Total Protein (6.3-8.2) g/dL Albumin (3.5-5.0) g/dL 12/17/17 12/17/17 12/17/17 Range/Units 04:45 04:45 06:00 WBC (3.8-10.6) k/uL RBC (3.80-5.40) m/uL Hgb (11.4-16.0) gm/dL Hct (34.0-46.0) % RDW (11.5-15.5) % Neutrophils # (1.3-7.7) k/uL PT 13.8 H (9.0-12.0) sec INR 1.5 H (<1.2) ABG pH (7.35-7.45) ABG pO2 (83-108) mmHg ABG HCO3 (21-25) mmol/L ABG Total CO2 (19-24) mmol/L ABG O2 Saturation (94-97) % Carbon Dioxide 33 H (22-30) mmol/L BUN 40 H (7-17) mg/dL Glucose 106 H (74-99) mg/dL POC Glucose (mg/dL) 107 H (75-99) mg/dL Calcium 7.9 L (8.4-10.2) mg/dL AST 56 H (14-36) U/L Total Protein 5.2 L (6.3-8.2) g/dL Albumin 2.3 L (3.5-5.0) g/dL 12/17/17 Range/Units 07:52 WBC (3.8-10.6) k/uL RBC (3.80-5.40) m/uL Hgb (11.4-16.0) gm/dL Hct (34.0-46.0) % RDW (11.5-15.5) % Neutrophils # (1.3-7.7) k/uL PT (9.0-12.0) sec INR (<1.2) ABG pH 7.48 H (7.35-7.45) ABG pO2 134 H (83-108) mmHg ABG HCO3 30 H (21-25) mmol/L ABG Total CO2 32 H (19-24) mmol/L ABG O2 Saturation 99.6 H (94-97) % Carbon Dioxide (22-30) mmol/L BUN (7-17) mg/dL Glucose (74-99) mg/dL POC Glucose (mg/dL) (75-99) mg/dL Calcium (8.4-10.2) mg/dL AST (14-36) U/L Total Protein (6.3-8.2) g/dL Albumin (3.5-5.0) g/dL Microbiology - Last 24 Hours (Table) 12/14/17 21:30 Gram Stain - Final Sputum Sputum Culture - Final Rachana albicans - Imaging and Cardiology Chest x-ray: report reviewed, image reviewed Assessment and Plan (1) Acute blood loss anemia Current Visit: Yes Status: Acute Code(s): D62 - ACUTE POSTHEMORRHAGIC ANEMIA SNOMED Code(s): 468719310 (2) CAD (coronary artery disease) Current Visit: Yes Status: Chronic Code(s): I25.10 - ATHSCL HEART DISEASE OF [place] CORONARY ARTERY W/O ANG PCTRS SNOMED Code(s): 52654213 (3) Hyperlipidemia Current Visit: Yes Status: Chronic Code(s): E78.5 - HYPERLIPIDEMIA, UNSPECIFIED SNOMED Code(s): 38413933 (4) Hypertension Current Visit: Yes Status: Chronic Code(s): I10 - ESSENTIAL (PRIMARY) HYPERTENSION SNOMED Code(s): 75400234 (5) Severe mitral regurgitation Current Visit: Yes Status: Chronic Code(s): I34.0 - NONRHEUMATIC MITRAL ( VALVE) INSUFFICIENCY SNOMED Code(s): 67810959 (6) Stenosis of left subclavian artery Current Visit: Yes Status: Chronic Code(s): I77.1 - STRICTURE OF ARTERY SNOMED Code(s): 52262128475474891 (7) Paroxysmal atrial fibrillation Current Visit: No Status: Resolved Code(s): I48.0 - PAROXYSMAL ATRIAL FIBRILLATION SNOMED Code(s): 490716862 (8) History of GI bleed Current Visit: No Status: Resolved Code(s): Z87.19 - PERSONAL HISTORY OF OTHER DISEASES OF THE DIGESTIVE SYSTEM SNOMED Code(s): 959008958 (9) Family history of coronary artery disease Current Visit: Yes Status: Chronic Code(s): Z82.49 - FAMILY HX OF ISCHEM HEART DIS AND OTH DIS OF THE CIRC SYS SNOMED Code(s): 986743262 Plan: 1. Continue baby aspirin, statin, beta krunal. Will increase beta krunal therapy as tolerated. 2. Continue amiodarone for atrial fibrillation prophylaxis. No further IV amiodarone. 3. Ventilator management per pulmonology. Wean as tolerated. 4. Sternal incision cultured, consistent with Serratia. Continue meropenem per Dr. Olivera. Wound VAC in place to be changed Wednesday, Wednesday, and Fridays. Dr. Krause consulted future wound flap closure, current plans for next week, date to be determined. Sputum culture positive for Rachana. 5. Will monitor labs, chest x-rays. 6. Bronchodilators per pulmonology. 7. Will hold off on Coumadin for now as patient is preparing for repeat surgery next week. No IV heparin. 8. GI/DVT prophylaxis. 9. Increase activity once extubated. PT/OT/cardiac rehab following. 10. Continue tube feedings for maximum nutrition. 11. Keep Mason for strict accurate intake and output. 12. Keep left pleural chest tube for now to continuous wall suction. 13. More recommendations as patient progresses. Time with Patient: Greater than 30
--- NOTE | 2017-12-17 11:51 | P.PN ---
Subjective Patient remains in sinus rhythm Intubated post bronchoscopy and lavage Patient status post mitral valve replacement, left atrial appendectomy, maze procedure patch grafting over the left ventricle Sternal wound dehiscence, status post debridement and awaiting myocutaneous flap hence Coumadin is on hold Post bronchoscopy and lavage and removal of mucous plugs On examination breath sounds are reduced bilaterally Heart sounds are regular Abdomen soft Edematous extremities Plan Continue current medications continue oral amiodarone. If she has recurrence of atrial tachycardia I will not give her any more IV amiodarone. She has had many boluses of amiodarone over and above the regular infusion and has been on amiodarone now for almost 2 weeks Objective - Vital Signs Vital signs: Vital Signs Temp 98.9 F 12/17/17 08:00 Pulse 80 12/17/17 10:30 Resp 39 H 12/17/17 10:30 BP 128/52 12/16/17 09:50 Pulse Ox 97 12/17/17 10:30 Intake & Output 12/16/17 12/17/17 12/17/17 18:59 06:59 18:59 Intake Total 2517.126 1729.532 479 Output Total 330 472 115 Balance 2187.126 1257.532 364 Weight 109 kg 108.6 kg Intake: IV 690 596 69 ACETAMINOPHEN IV (For NPO 200 ) 1,000 mg In Empty Bag 1 bag @ 400 mls/hr IVPB Q6HR [facility] Rx#:[id number] Meropenem 1 gm In Sodium 200 100 Chloride 0.9% 100 ml @ 100 mls/hr IVPB Q8HR [facility] Rx#:[id number] Pressure Bag 36 9 Sodium Chloride 0.9% 1, 240 260 60 000 ml @ 20 mls/hr IV . Q24H [facility] Rx#:[id number] Vancomycin 1,750 mg In 250 Sodium Chloride 0.9% 250 ml @ 125 mls/hr IVPB Q12HR@0000,1200 [facility] Rx#: [id number] Intake, IV Titration 617.126 173.532 Amount ACETAMINOPHEN IV (For NPO 100 ) 1,000 mg In Empty Bag 1 bag @ 400 mls/hr IVPB Q6HR [facility] Rx#:[id number] Norepinephrin 16 mg-0.9% 217.126 10.125 Ns Pmx 16 mg In 250 ml @ Titrate IV .Q0M [facility] Rx#: [id number] Propofol 1,000 mg In 300 163.407 Empty Bag 1 bag @ Titrate IV .Q0M [facility] Rx#: [id number] Oral 100 Tube Feeding 440 680 200 Blood Product 620 Rc As-1 Unit 310 [id number] Other 150 180 210 Output: Chest Tube Drainage 0 Pleural Catheter Left 0 Drainage 55 Medial Chest Incision - 55 Woundvac Urine 330 417 115 Other: Voiding Method Indwelling Catheter Indwelling Catheter ABP, PAP, CO, CI - Last Documented Arterial Blood Pressure 134/52 Pulmonary Artery Pressure 38/33 Cardiac Output 5.8 Cardiac Index 2.9 - Labs CBC & Chem 7: 12/17/17 04:45 12/17/17 04:45 Labs: Abnormal Lab Results - Last 24 Hours (Table) 12/16/17 12/17/17 12/17/17 Range/Units 12:27 00:10 04:45 WBC 17.8 H (3.8-10.6) k/uL RBC 3.00 L (3.80-5.40) m/uL Hgb 8.1 L (11.4-16.0) gm/dL Hct 25.3 L (34.0-46.0) % RDW 20.4 H (11.5-15.5) % Neutrophils # 16.1 H (1.3-7.7) k/uL PT (9.0-12.0) sec INR (<1.2) ABG pH (7.35-7.45) ABG pO2 (83-108) mmHg ABG HCO3 (21-25) mmol/L ABG Total CO2 (19-24) mmol/L ABG O2 Saturation (94-97) % Carbon Dioxide (22-30) mmol/L BUN (7-17) mg/dL Glucose (74-99) mg/dL POC Glucose (mg/dL) 109 H 115 H (75-99) mg/dL Calcium (8.4-10.2) mg/dL AST (14-36) U/L Total Protein (6.3-8.2) g/dL Albumin (3.5-5.0) g/dL 12/17/17 12/17/17 12/17/17 Range/Units 04:45 04:45 06:00 WBC (3.8-10.6) k/uL RBC (3.80-5.40) m/uL Hgb (11.4-16.0) gm/dL Hct (34.0-46.0) % RDW (11.5-15.5) % Neutrophils # (1.3-7.7) k/uL PT 13.8 H (9.0-12.0) sec INR 1.5 H (<1.2) ABG pH (7.35-7.45) ABG pO2 (83-108) mmHg ABG HCO3 (21-25) mmol/L ABG Total CO2 (19-24) mmol/L ABG O2 Saturation (94-97) % Carbon Dioxide 33 H (22-30) mmol/L BUN 40 H (7-17) mg/dL Glucose 106 H (74-99) mg/dL POC Glucose (mg/dL) 107 H (75-99) mg/dL Calcium 7.9 L (8.4-10.2) mg/dL AST 56 H (14-36) U/L Total Protein 5.2 L (6.3-8.2) g/dL Albumin 2.3 L (3.5-5.0) g/dL 12/17/17 Range/Units 07:52 WBC (3.8-10.6) k/uL RBC (3.80-5.40) m/uL Hgb (11.4-16.0) gm/dL Hct (34.0-46.0) % RDW (11.5-15.5) % Neutrophils # (1.3-7.7) k/uL PT (9.0-12.0) sec INR (<1.2) ABG pH 7.48 H (7.35-7.45) ABG pO2 134 H (83-108) mmHg ABG HCO3 30 H (21-25) mmol/L ABG Total CO2 32 H (19-24) mmol/L ABG O2 Saturation 99.6 H (94-97) % Carbon Dioxide (22-30) mmol/L BUN (7-17) mg/dL Glucose (74-99) mg/dL POC Glucose (mg/dL) (75-99) mg/dL Calcium (8.4-10.2) mg/dL AST (14-36) U/L Total Protein (6.3-8.2) g/dL Albumin (3.5-5.0) g/dL Microbiology - Last 24 Hours (Table) 12/15/17 10:40 Gram Stain - Final Bronchial Washings - Left Bronchial Washings Culture - Final Rachana albicans 12/14/17 21:30 Gram Stain - Final Sputum Sputum Culture - Final Rachana albicans
[2017-12-17] MEDS: HYDROcodone/APAP 5-325MG 1 EACH TAB PO PRN ×2 (13:07→17:05)
[2017-12-17 13:21] LABS: Glucose,Whole Blood 112 mg/dL (75-99)
--- NOTE | 2017-12-17 14:19 | P.PN ---
Subjective Progress Note Date: 12/17/17 Principal diagnosis: Status post mitral valve replacement with maze procedure postoperative day #21 On 12/11/2017 I'm seeing this patient for a follow-up. The patient is this morning, comfortable in the BiPAP. She is using the BiPAP on and off during the day. She was taken to the operating room where his surgical wound was debrided and the sternum was debrided and the wound VAC was applied. There is a positive gram-negative infection with Serratia and the patient is currently on IV Merrem. Also, left-sided chest tube was inserted. The chest tube drained approximately 130 mL of fluid for yesterday since it was placed and another 60 mL for today. The patient's pleural wound VAC has drained approximately 550 mL for yesterday and another 100 mL for today. The patient is afebrile. The patient is hemodynamically stable. The patient went into atrial fibrillation and this morning she converted into sinus and she is back and forth between flutter and sinus rhythm. She is on no pressors. Her INR is at 1.8. No anticoagulation will be offered today. Lasix surgery consultation was obtained for a future muscle flap. Hemoglobin is at 7.7. White cell count is at 16.3. The function is stable with a creatinine of 0.8. She is using incentive spirometer. She has no other complaints otherwise for now. On 12/12/2017, the patient is still doing well. The patient is sitting up in her bed and she is on a BiPAP at a pressure of 14/5 cm of water with an FiO2 of 50%. Her chest x-ray is quite stable and the patient has still a persistent consolidation/opacity in the left lung base. I have scanned the patient earlier this week and the findings the left lung bases consistent with some posterior pericardial effusion, atelectasis and small effusions. For that reason a chest tube was inserted and the total amount of output from the chest tube was 300 mL and since then the output has dropped considerably. The wound VAC is in place and the total amount of output over the past 12 hours as been around 250 mL. The wound cultures are showing gram-negative, the previous fluid drainage was positive for Serratia and the patient is currently on IV Merrem. White cell count is up to 19 and this is something to monitor knowing that her white cell count from yesterday was 16.3. Renal function is stable. She is producing adequate amount of urine output. Abdomen today is at 8.1. She is weak. She is taking approximately 20% of her diet and she is drinking a sure. Her cardiac rhythm is a flutter with 2 to one block and since this morning the patient became progressively more tachycardic. She received an additional amiodarone dose yesterday without much benefit. She is on beta blockers on metoprolol at a dose of 50 mg by mouth twice a day. She became slightly hypotensive yesterday and she was supposed to get albumin which was not given as the patient's blood pressure subsequently improved. She is off anticoagulation awaiting a sternal flap and the patient's INR today is at 1.7. Patient was reevaluated today on 12/13/2017, remains with very marginal pulmonary status, remains on BiPAP, FiO2 of 50%, IPAP of 14 and EPAP of 5. Chest x-ray seems to be worsening, CT of the chest is also worsening there is also a near-complete collapse of the left lung, only a small portion of the upper lobe remains aerated. Small pleural effusions noted, and what is worsening is the fact that she has an enlarging moderate to large pericardial effusion measuring 2.7 cm in thickness. This is along the left heart margin but increasing along the right heart margin measuring now 1.7 cm compared to 1 cm previously. Considering the findings, I felt strongly that the patient may benefit from bronchoscopy and left lung evaluation, however with the finding of increasing pericardial effusion, may have to be seen by thoracic surgery and consider a pericardial window. Her labs were reviewed, WBC count is 24.6 hemoglobin is 8.6 and her INR is 1.8. Patient is noted to be a bit dyspneic on BiPAP at 50%. Patient was reevaluated today on 12/14/2017, remains on BiPAP, patient is afraid to get off BiPAP. Same settings including IPAP of 14 and EPAP of 5, and she is on 50% FiO2. No evidence of leak, her tidal volume is anywhere between 450-500 , and her rate is about 18. Chest x-ray today showed slight improvement in the left lung collapse, however continues to have significant collapse of the left lower lobe. No bronchoscopy was done yesterday mostly because of the abnormal finding regarding her pericardial effusion, and we were not certain whether the patient will need a pericardial window at the time. The surgeons felt no need for pericardial window, patient was scheduled for bronchoscopy early this morning, but her INR is elevated, hence we recommended 2 units of fresh frozen plasma, and I still plan to do the bronchoscopy this afternoon. Family was made aware of the reasons for delay, but hopefully we can get it done sometime this afternoon. Labs were reviewed, her WBC count is 17.1 hemoglobin is 10.2 her INR was 2.1 earlier today. Rest of the labs were reviewed. Hemodynamically the patient is stable, intermittently she may have episodes of atrial flutter without hemodynamic instability. Reevaluated today on 12/15/2017, patient's condition worsened late p.m. yesterday , she was in atrial flutter, developed worsening shortness of breath, and did not improve with diuretics, BiPAP, and given multiple meds to control her atrial flutter including amiodarone, and she was given beta blockers. Patient continued to show worsening dyspnea, and she was intubated placed on mechanical ventilation. Immediate chest x-ray post intubation showed adequate expansion of the left lower lobe, however follow-up chest x-ray today showed left lower lobe collapse. I performed bronchoscopy on the patient today, she was given earlier 2 more units of fresh frozen plasma, and I proceeded to bronchoscopy and BAL of the left lower lobe. Indeed there was a mucous plug in the left lower lobe bronchus, this was suctioned, and lavage of the whole left lower lobe was done. Fluid was sent for different diagnostic studies, please refer to the full operative report. Vent settings were reviewed, patient is now on assist control rate of 18, 45% FiO2, and tidal volume of 500 PEEP is at 5. ABG showed a pO2 of 123 pCO2 of 43 pH of 7.50 antibiotics mcguire, patient is now on Merrem and vancomycin. Reevaluated today on 12/16/2017, patient remains on mechanical ventilation, same vent settings as noted above, however her FiO2 is down to 40%, PEEP remains at 5 , tidal volume is 500 and assist control rate of 18. ABG is excellent. Patient remains on antibiotics in the form of Merrem and vancomycin. Her wound VAC was addressed today by Dr. richi harrison on the case, and the sternal wound was cleaned and one VAC placed again. Awaiting final myocutaneous flap by plastic surgery. In the meantime I believe the patient will be extremely difficult to wean and extubate successfully, we'll try to find out as when her surgery is scheduled for her sternum. Onset the sternum is stabilized, it will be much easier to perform successful weaning and extubation. Otherwise the patient will have to be extubated again to a BiPAP, and she would likely continue to collapse her lower lobes. Today the patient received a unit of packed RBCs for low hemoglobin. Patient was reevaluated today on 12/17/2017, remains on mechanical ventilation, ventilator settings are tidal volume of 500 assist control rate of 18 FiO2 of 40 % and PEEP of 5. ABG showed a pO2 of 134 pCO2 of 41 pH of 7.48. WBC count is 17.8 hemoglobin is 8.1 INR is 1.5. Chest x-ray is showing overall improvement especially in the left lower lobe compared to previous x-rays. Better aeration of the left lower lobe is noted. Small bilateral pleural effusions noted. Left -sided chest tube remains in place. Minimal atelectasis noted in the left lower lobe, but again it is improved compared to previous x-rays. Basic metabolic profile is normal renal profile is normal. Patient is hemodynamically stable, off norepinephrine. Continues to have a wound VAC in place, and remains on the same antibiotics as per infectious disease. Objective - Vital Signs Vital signs: Vital Signs Temp 98.9 F 12/17/17 08:00 Pulse 71 12/17/17 12:25 Resp 39 H 12/17/17 10:30 BP 128/52 12/16/17 09:50 Pulse Ox 97 12/17/17 10:30 Intake & Output 12/16/17 12/17/17 12/17/17 18:59 06:59 18:59 Intake Total 2517.126 1729.532 479 Output Total 330 472 115 Balance 2187.126 1257.532 364 Weight 109 kg 108.6 kg Intake: IV 690 596 69 ACETAMINOPHEN IV (For NPO 200 ) 1,000 mg In Empty Bag 1 bag @ 400 mls/hr IVPB Q6HR [facility] Rx#:[id number] Meropenem 1 gm In Sodium 200 100 Chloride 0.9% 100 ml @ 100 mls/hr IVPB Q8HR [facility] Rx#:[id number] Pressure Bag 36 9 Sodium Chloride 0.9% 1, 240 260 60 000 ml @ 20 mls/hr IV . Q24H [facility] Rx#:[id number] Vancomycin 1,750 mg In 250 Sodium Chloride 0.9% 250 ml @ 125 mls/hr IVPB Q12HR@0000,1200 [facility] Rx#: [id number] Intake, IV Titration 617.126 173.532 Amount ACETAMINOPHEN IV (For NPO 100 ) 1,000 mg In Empty Bag 1 bag @ 400 mls/hr IVPB Q6HR [facility] Rx#:[id number] Norepinephrin 16 mg-0.9% 217.126 10.125 Ns Pmx 16 mg In 250 ml @ Titrate IV .Q0M [facility] Rx#: [id number] Propofol 1,000 mg In 300 163.407 Empty Bag 1 bag @ Titrate IV .Q0M [facility] Rx#: [id number] Oral 100 Tube Feeding 440 680 200 Blood Product 620 Rc As-1 Unit 310 [id number] Other 150 180 210 Output: Chest Tube Drainage 0 Pleural Catheter Left 0 Drainage 55 Medial Chest Incision - 55 Woundvac Urine 330 417 115 Other: Voiding Method Indwelling Catheter Indwelling Catheter ABP, PAP, CO, CI - Last Documented Arterial Blood Pressure 134/52 Pulmonary Artery Pressure 38/33 Cardiac Output 5.8 Cardiac Index 2.9 - Exam - Constitutional General appearance: Physical exam revealed a 67-year-old, female, intubated, however off propofol, the patient seemed to be appropriate, and unresponsive to all stimuli. - EENT ENT: Moist mucous membranes, no neck masses, endotracheal tube is intact. - Neck Details: No neck masses, no JVD, throat is clear, no stridor. - Respiratory Details: diminished breath sounds at the bases, airflow to both lungs is symmetrical. Left pleural chest tube remains intact evacuating thin serosanguineous drainage. No air leak present. Chest tube remains to low continuous wall suction -20 cm H2O. sternal wound VAC is noted. - Cardiovascular Details: Irregular rhythm , normal S1 and S2 present, negative for S3, gallop or murmur. Sternal wound with wound VAC in place, - Gastrointestinal Gastrointestinal Comment(s): Obese, soft, nontender, no megaly, no rebound, no guarding, positive bowel sounds.- Genitourinary Genitourinary Comment(s): Mason catheter remains in place with good urine output - Integumentary Integumentary Comment(s): Skin is relatively unremarkable.. Wound VAC in place to sternal wound. Positive serosanguineous drainage. Stage II wound to her coccyx with local with wound care treatment. No clubbing or cyanosis. - Neurologic Neurologic: No gross focal deficit was noted off propofol. - Musculoskeletal Musculoskeletal: Relatively unremarkable. - Psychiatric Psychiatric: Normal mood affect and mental status examination. - Labs CBC & Chem 7: 12/17/17 04:45 12/17/17 04:45 Labs: Abnormal Lab Results - Last 24 Hours (Table) 12/17/17 12/17/17 12/17/17 Range/Units 00:10 04:45 04:45 WBC 17.8 H (3.8-10.6) k/uL RBC 3.00 L (3.80-5.40) m/uL Hgb 8.1 L (11.4-16.0) gm/dL Hct 25.3 L (34.0-46.0) % RDW 20.4 H (11.5-15.5) % Neutrophils # 16.1 H (1.3-7.7) k/uL PT (9.0-12.0) sec INR (<1.2) ABG pH (7.35-7.45) ABG pO2 (83-108) mmHg ABG HCO3 (21-25) mmol/L ABG Total CO2 (19-24) mmol/L ABG O2 Saturation (94-97) % Carbon Dioxide 33 H (22-30) mmol/L BUN 40 H (7-17) mg/dL Glucose 106 H (74-99) mg/dL POC Glucose (mg/dL) 115 H (75-99) mg/dL Calcium 7.9 L (8.4-10.2) mg/dL AST 56 H (14-36) U/L Total Protein 5.2 L (6.3-8.2) g/dL Albumin 2.3 L (3.5-5.0) g/dL 12/17/17 12/17/17 12/17/17 Range/Units 04:45 06:00 07:52 WBC (3.8-10.6) k/uL RBC (3.80-5.40) m/uL Hgb (11.4-16.0) gm/dL Hct (34.0-46.0) % RDW (11.5-15.5) % Neutrophils # (1.3-7.7) k/uL PT 13.8 H (9.0-12.0) sec INR 1.5 H (<1.2) ABG pH 7.48 H (7.35-7.45) ABG pO2 134 H (83-108) mmHg ABG HCO3 30 H (21-25) mmol/L ABG Total CO2 32 H (19-24) mmol/L ABG O2 Saturation 99.6 H (94-97) % Carbon Dioxide (22-30) mmol/L BUN (7-17) mg/dL Glucose (74-99) mg/dL POC Glucose (mg/dL) 107 H (75-99) mg/dL Calcium (8.4-10.2) mg/dL AST (14-36) U/L Total Protein (6.3-8.2) g/dL Albumin (3.5-5.0) g/dL 12/17/17 Range/Units 13:20 WBC (3.8-10.6) k/uL RBC (3.80-5.40) m/uL Hgb (11.4-16.0) gm/dL Hct (34.0-46.0) % RDW (11.5-15.5) % Neutrophils # (1.3-7.7) k/uL PT (9.0-12.0) sec INR (<1.2) ABG pH (7.35-7.45) ABG pO2 (83-108) mmHg ABG HCO3 (21-25) mmol/L ABG Total CO2 (19-24) mmol/L ABG O2 Saturation (94-97) % Carbon Dioxide (22-30) mmol/L BUN (7-17) mg/dL Glucose (74-99) mg/dL POC Glucose (mg/dL) 112 H (75-99) mg/dL Calcium (8.4-10.2) mg/dL AST (14-36) U/L Total Protein (6.3-8.2) g/dL Albumin (3.5-5.0) g/dL Microbiology - Last 24 Hours (Table) 12/15/17 10:40 Gram Stain - Final Bronchial Washings - Left Bronchial Washings Culture - Final Rachana albicans 12/14/17 21:30 Gram Stain - Final Sputum Sputum Culture - Final Rachana albicans Assessment and Plan Assessment: 1. Severe mitral valve regurgitation, status post mitral valve replacement, with Maze procedure, left atrial appendage exclusion, and one-vessel bypass, postop day #21 2 sternal wound dehiscence/infection with gram-negative infection and the patient has Serratia currently on Merrem. The patient underwent debridement and the wound VAC is applied. She will ultimately need a flap and plastic surgery this is yet to be decided, most likely it would happen early next week either Wednesday or Wednesday according to the surgeons. 3 left basilar atelectasis/and left lower lobe collapse, status post bronchoscopy and lavage of the left lower lobe on 12/15/2017. Cultures were nondiagnostic and thus not surprising considering the patient was already on broad-spectrum antibiotics coverage. 4 acute respiratory failure, hypoxic requiring reintubation and mechanical ventilation. 5. acute urinary tract infection, urine culture positive for E. coli and Serratia marcescens, on meropenem 6. Anemia, multifactorial in the patient's hemoglobin is 8.1 7 paroxysmal atrial flutter with rapid ventricular response currently on beta blockers and oral amiodarone, anticoagulation therapy is presently on hold because of bleeding from the wound VAC was noted. Presently heparin and Coumadin are both on hold. 8 left subclavian stenosis 9 leukocytosis 10 obesity 11 previous history of GI bleed 12 pressure ulceration in the back and buttocks, stage III Recommendation: Continue present supportive care measures, continue mechanical ventilation, continue nutritional support, hemodynamic support, patient will be given weaning trials in the form of pressure support and CPAP, depending on her overall clinical status, may even consider extubation to BiPAP. We'll continue to follow. Critical care time is 35 minutes. Discussed her condition with her daughter and the different surgeries on the case. Time with Patient: Greater than 30
[2017-12-17 19:09] LABS: Glucose,Whole Blood 101 mg/dL (75-99)
--- NOTE | 2017-12-17 20:13 | P.PN ---
Subjective Progress Note Date: 12/17/17 Progress note being dictated for Dr. Lugo Interval history: This is 67-year-old female status post CABG, mitral valve replacement, status post multiple blood products transfusions. Remains vent dependent on 40% FiO2/+5 of PEEP. Chest x-ray reporting fluid overload, improvement in volume status, aeration.Maintained on norepinephrine, Primacor, dopamine and insulin drip. Cardiac index 2.7. Telemetry atrial flutter/sinus tach. Tube feeding initiated via OG tube. Hemoglobin 7.3, Platelets decreased to 64 today, maintained on low-dose aspirin. Review systems unable to obtain as patient sedated and on mechanical ventilation. Active Medications Albuterol/Ipratropium (Duoneb 0.5 Mg-3 Mg/3 Ml Soln) 3 ml INHALATION RT-Q4H [facility] Last Admin: 11/29/17 15:17 Dose: 3 ml Albuterol/Ipratropium (Duoneb 0.5 Mg-3 Mg/3 Ml Soln) 3 ml INHALATION RT-Q2H PRN PRN Reason: Shortness Of Breath Or Wheezing Amiodarone HCl (Cordarone) 200 mg PO BID [facility] Aspirin (Aspirin) 81 mg PO DAILY [facility] Last Admin: 11/29/17 08:54 Dose: 81 mg Atorvastatin Calcium (Lipitor) 40 mg PO DAILY [facility] Last Admin: 11/29/17 08:54 Dose: 40 mg Benzocaine/Menthol (Cepacol Lozenge) 1 each MUCOUS MEM Q2H PRN PRN Reason: Sore Throat Bisacodyl (Dulcolax) 10 mg RECTAL DAILY PRN PRN Reason: Constipation Chlorhexidine Gluconate (Peridex) 15 ml MUCOUS MEM BID [facility] Last Admin: 11/29/17 08:48 Dose: 15 ml Furosemide (Lasix) 40 mg IV ONCE ONE Stop: 11/29/17 20:01 Propofol 1,000 mg/ IV Solution 100 mls @ 0 mls/hr IV .Q0M [facility]; Titrate PRN Reason: Protocol Last Admin: 11/29/17 17:54 Dose: 26.13 mcg/kg/min, 17.2 mls/hr Norepinephrine Bitartrate (Levophed-0.9% Nacl 16 Mg/250ml Pmx) 16 mg in 250 mls @ 0 mls/hr IV .Q0M [facility]; Titrate PRN Reason: Protocol Last Admin: 11/29/17 17:54 Dose: 2 mcg/min, 1.875 mls/hr Sodium Chloride (Saline 0.45%) 1,000 mls @ 30 mls/hr IV .Q24H [facility] Last Admin: 11/29/17 10:28 Dose: Not Given Milrinone Lactate/Dextrose 20 (mg/ IV Solution) 100 mls @ 6.58 mls/hr IV .[id number] [facility] PRN Reason: 0.2 MCG/KG/MIN Last Admin: 11/29/17 15:38 Dose: 0.2 mcg/kg/min, 6.58 mls/hr Insulin Aspart (Novolog) 0 unit SQ Q6HR [facility] PRN Reason: Protocol Last Admin: 11/29/17 12:36 Dose: Not Given Magnesium Hydroxide (Milk Of Magnesia) 2,400 mg PO BID PRN PRN Reason: Constipation Metoprolol Tartrate (Lopressor) 12.5 mg PO BID [facility] Last Admin: 11/29/17 08:55 Dose: 12.5 mg Miscellaneous Information (Magnesium Per Protocol) 1 each MISCELLANE DAILY PRN ; Protocol PRN Reason: Per Protocol Miscellaneous Information (Phosphorus Per Protocol) 1 each MISCELLANE DAILY PRN ; Protocol PRN Reason: Per Protocol Miscellaneous Information (Potassium Per Protocol) 1 each MISCELLANE DAILY PRN ; Protocol PRN Reason: Per Protocol Miscellaneous Information (Potassium Per Protocol) 1 each MISCELLANE DAILY PRN ; Protocol PRN Reason: Per Protocol Morphine Sulfate (Morphine Oral Dana 2mg/Ml) 6 mg PO Q2H PRN PRN Reason: Severe Pain Ondansetron HCl (Zofran) 4 mg IVP Q6HR PRN PRN Reason: Nausea And Vomiting Pantoprazole Sodium (Protonix) 40 mg IVP DAILY [facility] Last Admin: 11/29/17 08:55 Dose: 40 mg Senna/Docusate Sodium (Senokot-S) 2 each PO HS [facility] Last Admin: 11/28/17 20:41 Dose: 2 each Sodium Chloride (Saline Flush) 10 ml IV BID [facility] Last Admin: 11/29/17 08:56 Dose: 10 ml 11/30/2017 Chest x-ray reporting increased congestion, received additional Lasix. extubated this morning, currently maintained on BiPAP. Norepinephrine weaned off this morning. Maintained on Primacor, cardiac index 2.6. Received 1 dose of Lasix IV push. Renal function improving. Hemoglobin 7, platelets increased to 74. Atrial flutter per telemetry. Review systems unable to obtain as patient BiPAP dependent. Active Medications Generic Name Dose Route Start Last Admin Trade Name Freq PRN Reason Stop Dose Admin Albuterol/Ipratropium 3 ml 11/25/17 20:00 11/30/17 15:23 Duoneb 0.5 Mg-3 Mg/3 Ml Soln INHALATION 3 ml RT-Q4H [facility] Administration Albuterol/Ipratropium 3 ml 11/26/17 17:53 Duoneb 0.5 Mg-3 Mg/3 Ml Soln INHALATION RT-Q2H PRN Shortness Of Breath Or Wheezing Amiodarone HCl 200 mg 11/29/17 21:00 11/30/17 08:14 Cordarone PO 200 mg BID [facility] Administration Aspirin 81 mg 11/26/17 10:15 11/30/17 08:15 Aspirin PO 81 mg DAILY [facility] Administration Atorvastatin Calcium 40 mg 11/26/17 09:00 11/30/17 08:14 Lipitor PO 40 mg DAILY [facility] Administration Benzocaine/Menthol 1 each 11/25/17 19:03 Cepacol Lozenge MUCOUS MEM Q2H PRN Sore Throat Bisacodyl 10 mg 11/26/17 17:52 Dulcolax RECTAL DAILY PRN Constipation Fondaparinux 2.5 mg 11/30/17 11:30 11/30/17 13:23 Arixtra SQ 2.5 mg DAILY [facility] Administration Norepinephrine Bitartrate 16 mg in 250 mls @ 0 mls/hr 11/26/17 04:15 11:58 Levophed-0.9% Nacl 16 Mg/250ml Pmx IV 0 mcg/min .Q0M [facility] 0 mls/hr Protocol Titration Titrate Sodium Chloride 1,000 mls @ 10 mls/hr 11/26/17 10:15 11/30/17 12:51 Saline 0.45% IV Not Given .Q24H [facility] Milrinone Lactate/Dextrose 20 100 mls @ 6.58 mls/hr 11/29/17 15:00 11/30/17 08:16 mg/ IV Solution IV 0.2 mcg/kg/min .[id number] [facility] 6.58 mls/hr 0.2 MCG/KG/MIN Infusion Insulin Aspart 0 unit 11/29/17 12:00 11/30/17 12:50 Novolog SQ Not Given Q6HR [facility] Protocol Magnesium Hydroxide 2,400 mg 11/26/17 17:53 Milk Of Magnesia PO BID PRN Constipation Metoprolol Tartrate 12.5 mg 11/26/17 09:00 11/30/17 08:15 Lopressor PO 12.5 mg BID [facility] Administration Miscellaneous Information 1 each 11/25/17 19:03 Magnesium Per Protocol MISCELLANE DAILY PRN Per Protocol Protocol Miscellaneous Information 1 each 11/25/17 19:03 Phosphorus Per Protocol MISCELLANE DAILY PRN Per Protocol Protocol Miscellaneous Information 1 each 11/25/17 19:03 Potassium Per Protocol MISCELLANE DAILY PRN Per Protocol Protocol Miscellaneous Information 1 each 11/29/17 12:01 Potassium Per Protocol MISCELLANE DAILY PRN Per Protocol Protocol Morphine Sulfate 6 mg 11/29/17 13:31 Morphine Oral Dana 2mg/Ml PO Q2H PRN Severe Pain Ondansetron HCl 4 mg 11/25/17 19:03 Zofran IVP Q6HR PRN Nausea And Vomiting Pantoprazole Sodium 40 mg 11/26/17 09:00 11/30/17 08:15 Protonix IVP 40 mg DAILY [facility] Administration Senna/Docusate Sodium 2 each 11/26/17 21:00 11/29/17 20:40 Senokot-S PO 2 each HS [facility] Administration Sodium Chloride 10 ml 11/25/17 21:00 11/30/17 08:15 Saline Flush IV 10 ml BID [facility] Administration 12/01/2017 Breathing improving, weaned off of BiPAP and down to 6 L high flow. Wheezing resolved. Chest x-ray reports improvement. Staff reports patient appeared to be choking on pills last night, speech therapy consulted. Receiving one unit of packed RBCs for hemoglobin of 6.7. Mediastinal chest tubes discontinued, left pleural chest tube remains. Maintained on Primacor. Telemetry atrial flutter. Review of systems: CONSTITUTIONAL: No fever, no malaise HEENT: No recent visual problems or hearing problems. Denied any sore throat. CARDIOVASCULAR: No chest pain, no palpitations, no syncope. PULMONARY: Improving shortness of breath, no cough, no hemoptysis. GASTROINTESTINAL: No diarrhea, no nausea, no vomiting, no abdominal pain. Normoactive bowel sounds. NEUROLOGICAL: No headaches, diffuse weakness, no numbness. HEMATOLOGICAL: Denies any bleeding or petechiae. GENITOURINARY: Denies any burning micturition, frequency, or urgency. ENDOCRINE: Denies any polyuria or polydipsia. PSYCHIATRIC: No anxiety, no depression Active Medications Hydrocodone Bitart/Acetaminophen ([place] 5-325) 1 each PO Q4HR PRN PRN Reason: MILD TO MODERATE Pain Last Admin: 12/01/17 22:44 Dose: 1 each Hydrocodone Bitart/Acetaminophen ([place] 5-325) 2 each PO Q4HR PRN PRN Reason: MODERATE TO SEVERE Pain Albuterol/Ipratropium (Duoneb 0.5 Mg-3 Mg/3 Ml Soln) 3 ml INHALATION RT-Q4H [facility] Last Admin: 12/02/17 15:06 Dose: 3 ml Albuterol/Ipratropium (Duoneb 0.5 Mg-3 Mg/3 Ml Soln) 3 ml INHALATION RT-Q2H PRN PRN Reason: Shortness Of Breath Or Wheezing Last Admin: 12/01/17 18:09 Dose: 3 ml Amiodarone HCl (Cordarone) 200 mg PO BID [facility] Last Admin: 12/02/17 08:10 Dose: 200 mg Aspirin (Aspirin) 81 mg PO DAILY [facility] Last Admin: 12/02/17 08:10 Dose: 81 mg Atorvastatin Calcium (Lipitor) 40 mg PO DAILY [facility] Last Admin: 12/02/17 08:10 Dose: 40 mg Benzocaine/Menthol (Cepacol Lozenge) 1 each MUCOUS MEM Q2H PRN PRN Reason: Sore Throat Bisacodyl (Dulcolax) 10 mg RECTAL DAILY PRN PRN Reason: Constipation Budesonide (Pulmicort) 1 mg INHALATION RT-BID [facility] Last Admin: 12/02/17 07:19 Dose: 1 mg Fondaparinux (Arixtra) 2.5 mg SQ DAILY [facility] Last Admin: 12/02/17 08:10 Dose: 2.5 mg Formoterol Fumarate (Perforomist) 20 mcg INHALATION RT-BID [facility] Last Admin: 12/02/17 07:36 Dose: 20 mcg Norepinephrine Bitartrate (Levophed-0.9% Nacl 16 Mg/250ml Pmx) 16 mg in 250 mls @ 0 mls/hr IV .Q0M [facility]; Titrate PRN Reason: Protocol Last Titration: 11/30/17 11:58 Dose: 0 mcg/min, 0 mls/hr Sodium Chloride (Saline 0.45%) 1,000 mls @ 10 mls/hr IV .Q24H [facility] Last Admin: 12/01/17 14:04 Dose: 10 mls/hr Milrinone Lactate/Dextrose 20 (mg/ IV Solution) 100 mls @ 6.58 mls/hr IV .[id number] [facility] PRN Reason: 0.2 MCG/KG/MIN Last Admin: 12/02/17 08:57 Dose: 0.2 mcg/kg/min, 6.58 mls/hr Insulin Aspart (Novolog) 0 unit SQ Q6HR [facility] PRN Reason: Protocol Last Admin: 12/02/17 12:53 Dose: Not Given Magnesium Hydroxide (Milk Of Magnesia) 2,400 mg PO BID PRN PRN Reason: Constipation Methylprednisolone Sodium Succinate (Solu-Medrol) 30 mg IV Q8HR [facility] Last Admin: 12/02/17 08:10 Dose: 30 mg Metoprolol Tartrate (Lopressor) 25 mg PO BID [facility] Last Admin: 12/02/17 08:59 Dose: 25 mg Miscellaneous Information (Magnesium Per Protocol) 1 each MISCELLANE DAILY PRN ; Protocol PRN Reason: Per Protocol Miscellaneous Information (Phosphorus Per Protocol) 1 each MISCELLANE DAILY PRN ; Protocol PRN Reason: Per Protocol Miscellaneous Information (Potassium Per Protocol) 1 each MISCELLANE DAILY PRN ; Protocol PRN Reason: Per Protocol Miscellaneous Information (Potassium Per Protocol) 1 each MISCELLANE DAILY PRN ; Protocol PRN Reason: Per Protocol Ondansetron HCl (Zofran) 4 mg IVP Q6HR PRN PRN Reason: Nausea And Vomiting Pantoprazole Sodium (Protonix) 40 mg IVP DAILY [facility] Last Admin: 12/02/17 08:10 Dose: 40 mg Senna/Docusate Sodium (Senokot-S) 2 each PO HS [facility] Last Admin: 12/01/17 21:55 Dose: 2 each Sodium Chloride (Saline Flush) 10 ml IV BID [facility] Last Admin: 12/02/17 12:51 Dose: 10 ml 12/02/17 Much more alert today. Oxygen weaned further down to 5 L nasal cannula, maintaining O2 sats in the high 90s. Pleural chest tube discontinued. Chest x- ray reporting probable right lower lobe atelectasis/effusion. Underwent modified barium swallow, with recommendations of regular diet, thin liquids, chin tuck, no straw, small bites/sepsis/sips; no impairment with exception of mild transient penetration with thin liquids which patient independently cleared. Yesterday receive 1 unit of packed RBCs with current hemoglobin 8. Weaning of Primacor in progress. 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 Review of systems: CONSTITUTIONAL: No fever, no malaise, no fatigue. HEENT: No recent visual problems or hearing problems. Denied any sore throat. CARDIOVASCULAR: No chest pain, no palpitations, no syncope. PULMONARY: Minimal shortness of breath, no cough, no hemoptysis. GASTROINTESTINAL: No diarrhea, no nausea, no vomiting, no abdominal pain. Normoactive bowel sounds. NEUROLOGICAL: No headaches, no weakness, no numbness. HEMATOLOGICAL: Denies any bleeding or petechiae. GENITOURINARY: Denies any burning micturition, frequency, or urgency. MUSCULOSKELETAL/RHEUMATOLOGICAL: Denies any joint pain, swelling, or any muscle pain. ENDOCRINE: Denies any polyuria or polydipsia. PSYCHIATRIC: No anxiety, no depression The rest of the 14 point review of systems is negative Active Medications Generic Name Dose Route Start Last Admin Trade Name Freq PRN Reason Stop Dose Admin Hydrocodone Bitart/Acetaminophen 1 each 12/01/17 12:20 12/01/17 22:44 [place] 5-325 PO 1 each Q4HR PRN Administration MILD TO MODERATE Pain Hydrocodone Bitart/Acetaminophen 2 each 12/01/17 12:20 [place] 5-325 PO Q4HR PRN MODERATE TO SEVERE Pain Albuterol/Ipratropium 3 ml 11/25/17 20:00 12/02/17 15:06 Duoneb 0.5 Mg-3 Mg/3 Ml Soln INHALATION 3 ml RT-Q4H [facility] Administration Albuterol/Ipratropium 3 ml 11/26/17 17:53 12/01/17 18:09 Duoneb 0.5 Mg-3 Mg/3 Ml Soln INHALATION 3 ml RT-Q2H PRN Administration Shortness Of Breath Or Wheezing Amiodarone HCl 200 mg 11/29/17 21:00 12/02/17 08:10 Cordarone PO 200 mg BID [facility] Administration Aspirin 81 mg 11/26/17 10:15 12/02/17 08:10 Aspirin PO 81 mg DAILY [facility] Administration Atorvastatin Calcium 40 mg 11/26/17 09:00 12/02/17 08:10 Lipitor PO 40 mg DAILY [facility] Administration Benzocaine/Menthol 1 each 11/25/17 19:03 Cepacol Lozenge MUCOUS MEM Q2H PRN Sore Throat Bisacodyl 10 mg 11/26/17 17:52 Dulcolax RECTAL DAILY PRN Constipation Budesonide 1 mg 12/01/17 20:00 12/02/17 07:19 Pulmicort INHALATION 1 mg RT-BID [facility] Administration Fondaparinux 2.5 mg 11/30/17 11:30 12/02/17 08:10 Arixtra SQ 2.5 mg DAILY [facility] Administration Formoterol Fumarate 20 mcg 12/01/17 20:00 12/02/17 07:36 Perforomist INHALATION 20 mcg RT-BID [facility] Administration Norepinephrine Bitartrate 16 mg in 250 mls @ 0 mls/hr 11/26/17 04:15 11:58 Levophed-0.9% Nacl 16 Mg/250ml Pmx IV 0 mcg/min .Q0M [facility] 0 mls/hr Protocol Titration Titrate Sodium Chloride 1,000 mls @ 10 mls/hr 11/26/17 10:15 12/02/17 15:41 Saline 0.45% IV Not Given .Q24H [facility] Milrinone Lactate/Dextrose 20 100 mls @ 6.58 mls/hr 11/29/17 15:00 12/02/17 08:57 mg/ IV Solution IV 0.2 mcg/kg/min .[id number] [facility] 6.58 mls/hr 0.2 MCG/KG/MIN Administration Insulin Aspart 0 unit 11/29/17 12:00 12/02/17 12:53 Novolog SQ Not Given Q6HR [facility] Protocol Magnesium Hydroxide 2,400 mg 11/26/17 17:53 Milk Of Magnesia PO BID PRN Constipation Methylprednisolone Sodium Succinate 30 mg 12/01/17 16:00 12/02/17 08:10 Solu-Medrol IV 30 mg Q8HR [facility] Administration Metoprolol Tartrate 25 mg 12/02/17 09:00 12/02/17 08:59 Lopressor PO 25 mg BID [facility] Administration Miscellaneous Information 1 each 11/25/17 19:03 Magnesium Per Protocol MISCELLANE DAILY PRN Per Protocol Protocol Miscellaneous Information 1 each 11/25/17 19:03 Phosphorus Per Protocol MISCELLANE DAILY PRN Per Protocol Protocol Miscellaneous Information 1 each 11/25/17 19:03 Potassium Per Protocol MISCELLANE DAILY PRN Per Protocol Protocol Miscellaneous Information 1 each 11/29/17 12:01 Potassium Per Protocol MISCELLANE DAILY PRN Per Protocol Protocol Ondansetron HCl 4 mg 11/25/17 19:03 Zofran IVP Q6HR PRN Nausea And Vomiting Pantoprazole Sodium 40 mg 11/26/17 09:00 12/02/17 08:10 Protonix IVP 40 mg DAILY [facility] Administration Senna/Docusate Sodium 2 each 11/26/17 21:00 12/01/17 21:55 Senokot-S PO 2 each HS [facility] Administration Sodium Chloride 10 ml 11/25/17 21:00 12/02/17 12:51 Saline Flush IV 10 ml BID [facility] Administration 12/03/17 maintained on nebulized bronchodilators, steroids,patient tachypneic, requiring BiPap throughout today off and on. Chest x-ray suggestive of fluid overload. Received additional Lasix. Maintained on oral amiodarone, remains in a-flutter. Overdrive atrial pacing attempted unsuccessfully. Digoxin 2 ordered. Pacer wires discontinued today. Stool at bedside with PT OT, remains extremely weak. Primacor weaned off yesterday. 2017 currently in atrial fibrillation with heart rates up into the 150s, scheduled for cardioversion tomorrow. INR 2.2. Patient currently wearing BiPAP ,has required on and off all day. Chest ultrasound reporting bilateral pleural effusions, larger on the right. Thoracentesis on hold, awaiting cardioversion.Chest x-ray reporting prominent interstitium and central vascularity, increased bibasilar density. Attempting diuresing with Lasix and Zaroxolyn. Review systems unable to obtain as patient currently on BiPAP. Active Medications Hydrocodone Bitart/Acetaminophen ([place] 5-325) 1 each PO Q4HR PRN PRN Reason: MILD TO MODERATE Pain Last Admin: 12/07/17 10:48 Dose: 1 each Hydrocodone Bitart/Acetaminophen ([place] 5-325) 2 each PO Q4HR PRN PRN Reason: MODERATE TO SEVERE Pain Last Admin: 12/07/17 16:39 Dose: 2 each Albuterol/Ipratropium (Duoneb 0.5 Mg-3 Mg/3 Ml Soln) 3 ml INHALATION RT-Q2H PRN PRN Reason: Shortness Of Breath Or Wheezing Last Admin: 12/01/17 18:09 Dose: 3 ml Albuterol/Ipratropium (Duoneb 0.5 Mg-3 Mg/3 Ml Soln) 3 ml INHALATION RT-QID [facility] Last Admin: 12/07/17 16:43 Dose: 3 ml Amiodarone HCl (Cordarone) 200 mg PO BID [facility] Aspirin (Aspirin) 81 mg PO DAILY [facility] Last Admin: 12/07/17 08:53 Dose: 81 mg Atorvastatin Calcium (Lipitor) 40 mg PO DAILY [facility] Last Admin: 12/07/17 08:53 Dose: 40 mg Benzocaine/Menthol (Cepacol Lozenge) 1 each MUCOUS MEM Q2H PRN PRN Reason: Sore Throat Bisacodyl (Dulcolax) 10 mg RECTAL DAILY PRN PRN Reason: Constipation Budesonide (Pulmicort) 1 mg INHALATION RT-BID [facility] Last Admin: 12/07/17 08:36 Dose: 1 mg Escitalopram Oxalate (Lexapro) 10 mg PO HS [facility] Furosemide (Lasix) 40 mg IV Q12HR [facility] Last Admin: 12/07/17 08:33 Dose: 40 mg Piperacillin/Tazobactam/ (Dextrose 3.375 gm/ IV Solution) 50 mls @ 12.5 mls/hr IVPB Q8HR [facility] Last Admin: 12/07/17 16:39 Dose: 12.5 mls/hr Sodium Chloride (Saline 0.9%) 1,000 mls @ 20 mls/hr IV .Q24H [facility] Last Admin: 12/07/17 13:00 Dose: 20 mls/hr Lactated Ringer's (Lactated Ringers) 1,000 mls @ 20 mls/hr IV .Q24H [facility] Last Admin: 12/06/17 20:45 Dose: 20 mls/hr Insulin Aspart (Novolog) 0 unit SQ ACHS [facility] PRN Reason: Protocol Last Admin: 12/07/17 13:01 Dose: 2 unit Magnesium Hydroxide (Milk Of Magnesia) 2,400 mg PO BID PRN PRN Reason: Constipation Methylprednisolone Sodium Succinate (Solu-Medrol) 30 mg IV Q8HR [facility] Last Admin: 12/07/17 16:39 Dose: 30 mg Metolazone (Zaroxolyn) 5 mg PO DAILY [facility] Last Admin: 12/07/17 08:53 Dose: 5 mg Metoprolol Tartrate (Lopressor) 50 mg PO BID [facility] Last Admin: 12/07/17 08:53 Dose: 50 mg Miscellaneous Information (Magnesium Per Protocol) 1 each MISCELLANE DAILY PRN ; Protocol PRN Reason: Per Protocol Miscellaneous Information (Phosphorus Per Protocol) 1 each MISCELLANE DAILY PRN ; Protocol PRN Reason: Per Protocol Miscellaneous Information (Potassium Per Protocol) 1 each MISCELLANE DAILY PRN ; Protocol PRN Reason: Per Protocol Ondansetron HCl (Zofran) 4 mg IVP Q6HR PRN PRN Reason: Nausea And Vomiting Pantoprazole Sodium (Protonix) 40 mg PO AC-BRKFST [facility] Last Admin: 12/07/17 08:53 Dose: 40 mg Senna/Docusate Sodium (Senokot-S) 2 each PO HS [facility] Last Admin: 12/06/17 20:29 Dose: 2 each Sodium Chloride (Saline Flush) 10 ml IV BID [facility] Last Admin: 12/07/17 10:48 Dose: 10 ml 12/07/2017 Underwent successful cardioversion this morning,360J X1, remains in sinus rhythm. Currently wearing BiPAP. Nonproductive cough. Diuresing well on Lasix and Zaroxolyn with 24-hour I&O reflecting a negative fluid balance. Chest x-ray reporting stable bilateral areas of infiltrate and pleural effusions , possible CHF, possible pneumonia. INR 3.8, afebrile, WBC 17. Maintained on Zosyn. Sternal wound drainage, cultures sent. 12/08/2017 Cardioverted yesterday, remains in sinus rhythm .continues requiring BiPAP for majority of morning. Echo reporting-limited study for assessment of pericardial effusion, small generalized pericardial effusion, low normal LV function, EF 50-55%. Chest CT reporting sternal dehiscence, moderate to large pericardial effusion, possible mass effect onto the left ventricle, no significant right atrial dilatation to clearly indicate tamponade, moderate left pleural effusion with adjacent complete left lower lobar and inferior lingular collapse, small right pleural effusion, right basilar subsegmental atelectasis. Chest x-ray noted. Blood sugars controlled. INR 4.8, received vitamin K this morning. Diuresing well on Lasix IV push, Zaroxolyn. 24-hour I& O reflecting a negative fluid balance, decreased weight. Midsternal incision open, draining large amount of serosanguineous drainage. Currently maintained on Zosyn. Wound cultures pending. Afebrile. Review systems unable to obtain as patient currently on BiPAP. Active Medications Generic Name Dose Route Start Last Admin Trade Name Freq PRN Reason Stop Dose Admin Hydrocodone Bitart/Acetaminophen 1 each 12/01/17 12:20 12/08/17 06:26 [place] 5-325 PO 1 each Q4HR PRN Administration MILD TO MODERATE Pain Hydrocodone Bitart/Acetaminophen 2 each 12/01/17 12:20 12/08/17 18:41 [place] 5-325 PO 2 each Q4HR PRN Administration MODERATE TO SEVERE Pain Acetazolamide Sodium 250 mg 12/08/17 09:15 12/08/17 11:16 Diamox IV 12/08/17 21:01 250 mg Q12HR [facility] Administration Albuterol/Ipratropium 3 ml 11/26/17 17:53 12/08/17 05:16 Duoneb 0.5 Mg-3 Mg/3 Ml Soln INHALATION 3 ml RT-Q2H PRN Administration Shortness Of Breath Or Wheezing Albuterol/Ipratropium 3 ml 12/03/17 08:00 12/08/17 15:38 Duoneb 0.5 Mg-3 Mg/3 Ml Soln INHALATION 3 ml RT-QID [facility] Administration Amiodarone HCl 200 mg 12/08/17 09:00 12/08/17 08:24 Cordarone PO 200 mg BID [facility] Administration Aspirin 81 mg 11/26/17 10:15 12/08/17 08:24 Aspirin PO 81 mg DAILY [facility] Administration Atorvastatin Calcium 40 mg 11/26/17 09:00 12/08/17 08:25 Lipitor PO 40 mg DAILY [facility] Administration Benzocaine/Menthol 1 each 11/25/17 19:03 Cepacol Lozenge MUCOUS MEM Q2H PRN Sore Throat Bisacodyl 10 mg 11/26/17 17:52 Dulcolax RECTAL DAILY PRN Constipation Budesonide 1 mg 12/01/17 20:00 12/08/17 09:26 Pulmicort INHALATION 1 mg RT-BID [facility] Administration Escitalopram Oxalate 10 mg 12/07/17 21:00 12/07/17 20:10 Lexapro PO 10 mg HS [facility] Administration Piperacillin/Tazobactam/ 50 mls @ 12.5 mls/hr 12/04/17 16:00 12/08/17 16:11 Dextrose 3.375 gm/ IV Solution IVPB 12.5 mls/hr Q8HR [facility] Administration Sodium Chloride 1,000 mls @ 20 mls/hr 12/06/17 10:45 12/08/17 13:47 Saline 0.9% IV Not Given .Q24H [facility] Insulin Aspart 0 unit 12/02/17 21:00 12/08/17 17:46 Novolog SQ 1 unit ACHS [facility] Administration Protocol Magnesium Hydroxide 2,400 mg 11/26/17 17:53 Milk Of Magnesia PO BID PRN Constipation Metoprolol Tartrate 50 mg 12/06/17 21:00 12/08/17 08:24 Lopressor PO 50 mg BID [facility] Administration Miscellaneous Information 1 each 11/25/17 19:03 Magnesium Per Protocol MISCELLANE DAILY PRN Per Protocol Protocol Miscellaneous Information 1 each 11/25/17 19:03 Phosphorus Per Protocol MISCELLANE DAILY PRN Per Protocol Protocol Miscellaneous Information 1 each 11/25/17 19:03 Potassium Per Protocol MISCELLANE DAILY PRN Per Protocol Protocol Ondansetron HCl 4 mg 11/25/17 19:03 Zofran IVP Q6HR PRN Nausea And Vomiting Pantoprazole Sodium 40 mg 12/05/17 07:30 12/08/17 08:25 Protonix PO 40 mg AC-[id number] [facility] Administration Senna/Docusate Sodium 2 each 11/26/17 21:00 12/07/17 20:16 Senokot-S PO 2 each HS [facility] Administration Sodium Chloride 10 ml 11/25/17 21:00 12/08/17 11:16 Saline Flush IV 10 ml BID [facility] Administration 12/09/17 Remains in sinus rhythm. mostly BiPAP dependent. Incentive spirometer up to 700 -750. Chest x-ray reporting improving moderate pleural effusion, cardiomegaly. Sternal wound culture positive for gram-negative bacilli. Maintained on Zosyn. Diet intake fair. Blood sugars controlled. Review systems unable to be performed as patient on BiPAP Active Medications Hydrocodone Bitart/Acetaminophen ([place] 5-325) 1 each PO Q4HR PRN PRN Reason: MILD TO MODERATE Pain Last Admin: 12/09/17 10:03 Dose: 1 each Hydrocodone Bitart/Acetaminophen ([place] 5-325) 2 each PO Q4HR PRN PRN Reason: MODERATE TO SEVERE Pain Last Admin: 12/09/17 14:51 Dose: 2 each Albuterol/Ipratropium (Duoneb 0.5 Mg-3 Mg/3 Ml Soln) 3 ml INHALATION RT-Q2H PRN PRN Reason: Shortness Of Breath Or Wheezing Last Admin: 12/08/17 05:16 Dose: 3 ml Albuterol/Ipratropium (Duoneb 0.5 Mg-3 Mg/3 Ml Soln) 3 ml INHALATION RT-QID [facility] Last Admin: 12/09/17 15:42 Dose: 3 ml Amiodarone HCl (Cordarone) 200 mg PO BID [facility] Last Admin: 12/09/17 08:12 Dose: 200 mg Aspirin (Aspirin) 81 mg PO DAILY [facility] Last Admin: 12/09/17 08:13 Dose: 81 mg Atorvastatin Calcium (Lipitor) 40 mg PO DAILY [facility] Last Admin: 12/09/17 08:13 Dose: 40 mg Benzocaine/Menthol (Cepacol Lozenge) 1 each MUCOUS MEM Q2H PRN PRN Reason: Sore Throat Bisacodyl (Dulcolax) 10 mg RECTAL DAILY PRN PRN Reason: Constipation Budesonide (Pulmicort) 1 mg INHALATION RT-BID [facility] Last Admin: 12/09/17 07:45 Dose: 1 mg Escitalopram Oxalate (Lexapro) 10 mg PO HS [facility] Last Admin: 12/08/17 20:33 Dose: 10 mg Piperacillin/Tazobactam/ (Dextrose 3.375 gm/ IV Solution) 50 mls @ 12.5 mls/hr IVPB Q8HR [facility] Last Admin: 12/09/17 08:16 Dose: 12.5 mls/hr Sodium Chloride (Saline 0.9%) 1,000 mls @ 20 mls/hr IV .Q24H [facility] Last Admin: 12/09/17 08:17 Dose: 20 mls/hr Insulin Aspart (Novolog) 0 unit SQ ACHS [facility] PRN Reason: Protocol Last Admin: 12/09/17 12:23 Dose: Not Given Magnesium Hydroxide (Milk Of Magnesia) 2,400 mg PO BID PRN PRN Reason: Constipation Metoprolol Tartrate (Lopressor) 50 mg PO BID [facility] Last Admin: 12/09/17 08:13 Dose: 50 mg Miscellaneous Information (Magnesium Per Protocol) 1 each MISCELLANE DAILY PRN ; Protocol PRN Reason: Per Protocol Miscellaneous Information (Phosphorus Per Protocol) 1 each MISCELLANE DAILY PRN ; Protocol PRN Reason: Per Protocol Miscellaneous Information (Potassium Per Protocol) 1 each MISCELLANE DAILY PRN ; Protocol PRN Reason: Per Protocol Ondansetron HCl (Zofran) 4 mg IVP Q6HR PRN PRN Reason: Nausea And Vomiting Pantoprazole Sodium (Protonix) 40 mg PO AC-BRKFST [facility] Last Admin: 12/09/17 08:11 Dose: 40 mg Senna/Docusate Sodium (Senokot-S) 2 each PO HS [facility] Last Admin: 12/08/17 20:37 Dose: 2 each Sodium Chloride (Saline Flush) 10 ml IV BID [facility] Last Admin: 12/09/17 08:13 Dose: 10 ml 12/13/17 maintained on Merrem and vancomycin. BiPAP dependent. Worsening chest x-ray, chest CT reporting near complete collapse of left lung, enlarging moderate to large pericardial effusion. Echo pending. Multiple episodes of diarrhea. Atrial flutter with RVR, Review systems unable to be performed as patient on BiPAP Active Medications Generic Name Dose Route Start Last Admin Trade Name Freq PRN Reason Stop Dose Admin Hydrocodone Bitart/Acetaminophen 1 each 12/01/17 12:20 12/13/17 08:08 [place] 5-325 PO 1 each Q4HR PRN Administration MILD TO MODERATE Pain Hydrocodone Bitart/Acetaminophen 2 each 12/01/17 12:20 12/13/17 15:08 [place] 5-325 PO 2 each Q4HR PRN Administration MODERATE TO SEVERE Pain Albuterol/Ipratropium 3 ml 11/26/17 17:53 12/08/17 05:16 Duoneb 0.5 Mg-3 Mg/3 Ml Soln INHALATION 3 ml RT-Q2H PRN Administration Shortness Of Breath Or Wheezing Albuterol/Ipratropium 3 ml 12/03/17 08:00 12/13/17 16:02 Duoneb 0.5 Mg-3 Mg/3 Ml Soln INHALATION Not Given RT-QID [facility] Amiodarone HCl 200 mg 12/11/17 20:00 12/13/17 09:12 Cordarone PO 200 mg BID@0800,2000 [facility] Administration Aspirin 81 mg 11/26/17 10:15 12/13/17 09:13 Aspirin PO 81 mg DAILY [facility] Administration Atorvastatin Calcium 40 mg 11/26/17 09:00 12/13/17 09:13 Lipitor PO 40 mg DAILY [facility] Administration Benzocaine/Menthol 1 each 11/25/17 19:03 Cepacol Lozenge MUCOUS MEM Q2H PRN Sore Throat Bisacodyl 10 mg 11/26/17 17:52 12/12/17 17:45 Dulcolax RECTAL 10 mg DAILY PRN Administration Constipation Budesonide 1 mg 12/01/17 20:00 12/13/17 07:46 Pulmicort INHALATION 1 mg RT-BID [facility] Administration Escitalopram Oxalate 10 mg 12/07/17 21:00 12/12/17 20:16 Lexapro PO 10 mg HS [facility] Administration Heparin Sodium (Porcine) 5,000 unit 12/10/17 16:00 12/13/17 09:14 Heparin SQ 5,000 unit Q8HR [facility] Administration Sodium Chloride 1,000 mls @ 20 mls/hr 12/06/17 10:45 12/13/17 09:49 Saline 0.9% IV 20 mls/hr .Q24H [facility] Administration Meropenem 1 gm/ Sodium 100 mls @ 100 mls/hr 12/09/17 22:00 12/13/17 09:46 Chloride IVPB 100 mls/hr Q8HR [facility] Administration Vancomycin HCl 1,750 mg/ 250 mls @ 125 mls/hr 12/13/17 14:00 12/13/17 14:15 Sodium Chloride IVPB 125 mls/hr Q12HR@0000,1200 [facility] Administration Insulin Aspart 0 unit 12/02/17 21:00 12/13/17 12:34 Novolog SQ Not Given ACHS [facility] Protocol Lactobacillus Acidoph/Bulgaricus 1 each 12/13/17 16:00 Lactinex PO TID [facility] Magnesium Hydroxide 2,400 mg 11/26/17 17:53 Milk Of Magnesia PO BID PRN Constipation Metoprolol Tartrate 50 mg 12/11/17 22:00 12/13/17 09:13 Lopressor PO 50 mg BID@1000,2200 [facility] Administration Miscellaneous Information 1 each 11/25/17 19:03 Magnesium Per Protocol MISCELLANE DAILY PRN Per Protocol Protocol Miscellaneous Information 1 each 11/25/17 19:03 Phosphorus Per Protocol MISCELLANE DAILY PRN Per Protocol Protocol Miscellaneous Information 1 each 11/25/17 19:03 Potassium Per Protocol MISCELLANE DAILY PRN Per Protocol Protocol Ondansetron HCl 4 mg 11/25/17 19:03 Zofran IVP Q6HR PRN Nausea And Vomiting Pantoprazole Sodium 40 mg 12/05/17 07:30 12/13/17 09:13 Protonix PO 40 mg AC-BRKFST [facility] Administration Senna/Docusate Sodium 2 each 11/26/17 21:00 12/12/17 20:16 Senokot-S PO 2 each HS [facility] Administration Sodium Chloride 10 ml 11/25/17 21:00 12/13/17 09:49 Saline Flush IV 10 ml BID [facility] Administration 12/14/17 maintained on Merrem and vancomycin per infectious disease .remains BiPAP dependent. Chest x-ray reporting persistent significant left lung collapse with minimal improvement. Scheduled for bronchoscopy this afternoon. INR 2.1, receiving FFP. No diarrhea today. Telemetry atrial fibrillation/ flutter, heart rate 110s to 120s. 12/15/2017 developed worsened respiratory distress despite BiPAP, diuretics, antiarrhythmics, intubated last night. Received 2 more units of FFP this morning, underwent bronchoscopy this morning; mucous plug discovered in the left lower lobe. Pleural Cultures pending. Maintained on FiO2 45%/+5 of PEEP. Continues on IV antibiotics. Currently on 2-1/2 mics of Levophed and diprovan drips. Atrial tachycardia, heart rate in the 130s. Amiodarone discontinued as per cardiology. Developed increased bleeding from wound VAC with turning during bath-Anticoagulation placed on hold. Afebrile. 12/16/17 remains vent dependent, FiO2 40%/+5 of PEEP. Sedated on Diprovan. Requiring low-dose of Levophed. Marginal urine output, received albumin last night. Tachycardia resolved, sinus rhythm per telemetry. Wound VAC dressing changed today, serosanguineous drainage. Bronchoscopy yesterday, cultures pending. Blood sugars controlled. 12/17/2017 today weaning trials of pressure support in increments of 3 hours , resting at night, FiO2 40%/+5 of PEEP. Chest x-ray reporting improvement. Currently on Levophed. Tolerating tube feeds at goal with minimal to no residual. Maintained on IV antibiotics as per infectious disease. Telemetry sinus rhythm. Objective - Vital Signs Vital signs: Vital Signs Temp 98.6 F 12/17/17 16:00 Pulse 77 12/17/17 19:00 Resp 22 12/17/17 19:00 BP 128/52 12/16/17 09:50 Pulse Ox 98 12/17/17 19:00 Intake & Output 12/17/17 12/17/17 12/18/17 06:59 18:59 06:59 Intake Total 3108.598 8366 103 Output Total 472 435 50 Balance 1257.532 788 53 Weight 108.6 kg Intake: IV 596 253 23 ACETAMINOPHEN IV (For NPO 200 ) 1,000 mg In Empty Bag 1 bag @ 400 mls/hr IVPB Q6HR [facility] Rx#:[id number] Meropenem 1 gm In Sodium 100 Chloride 0.9% 100 ml @ 100 mls/hr IVPB Q8HR [facility] Rx#:[id number] Pressure Bag 36 33 3 Sodium Chloride 0.9% 1, 260 220 20 000 ml @ 20 mls/hr IV . Q24H [facility] Rx#:[id number] Intake, IV Titration 173.532 Amount Norepinephrin 16 mg-0.9% 10.125 Ns Pmx 16 mg In 250 ml @ Titrate IV .Q0M [facility] Rx#: [id number] Propofol 1,000 mg In 163.407 Empty Bag 1 bag @ Titrate IV .Q0M [facility] Rx#: [id number] Oral 100 Tube Feeding 680 640 80 Other 180 330 Output: Chest Tube Drainage 0 Pleural Catheter Left 0 Drainage 55 Medial Chest Incision - 55 Woundvac Urine 417 435 50 Other: Voiding Method Indwelling Catheter Indwelling Catheter ABP, PAP, CO, CI - Last Documented Arterial Blood Pressure 100/84 Pulmonary Artery Pressure 38/33 Cardiac Output 5.8 Cardiac Index 2.9 - Exam PHYSICAL EXAM: VITAL SIGNS: As above GENERAL: Sitting up in bed, on mechanical ventilation HEENT: Conjunctivae normal. eyes normal. NECK: No JVD. No thyroid enlargement. CARDIOVASCULAR: S1, S2 muffled ,no murmur. RESPIRATION: Breath sounds diminished in the bases. Left pleural chest tube with serosanguineous drainage .Sternal wound with wound vac present ABDOMEN: Soft . No guarding. no masses palpable.Bowel sounds heard. Extremities: Positive edema PSYCHIATRY:/NERVOUS SYSTEM: Unable to assess as patient sedated and on mechanical ventilation Skin: Midsternal incision open,large amount of serosanguineous drainage,with packing, right medial buttock & right buttock skin tears, type II - III, Right lower arm Skin tear,type II, Lower back shearing injury with sloughing Microbiology 12/15/17 10:40 Bronchial Washings - Left Gram Stain - Final 12/15/17 10:40 Bronchial Washings - Left Bronchial Washings Culture - Final Rachana albicans 12/14/17 21:30 Sputum Gram Stain - Final 12/14/17 21:30 Sputum Sputum Culture - Final Rachana albicans 12/15/17 10:40 Bronchial Washings - Left Acid Fast Bacilli Smear - Final 12/15/17 10:40 Bronchial Washings - Left Acid Fast Bacilli Culture - Preliminary 12/15/17 10:40 Bronchial Washings - Left Fungal Culture - Preliminary 12/10/17 10:50 Chest Anaerobic Culture - Final 12/10/17 10:40 Chest Anaerobic Culture - Final 12/10/17 10:45 Chest Anaerobic Culture - Final 12/13/17 05:27 Urine,Catheterized Urine Culture - Final 12/10/17 10:40 Chest Gram Stain - Final 12/10/17 10:40 Chest Wound Culture - Final Serratia marcescens 12/10/17 10:45 Chest Gram Stain - Final 12/10/17 10:45 Chest Tissue Culture - Final Serratia marcescens 12/10/17 10:50 Chest Gram Stain - Final 12/10/17 10:50 Chest Tissue Culture - Final Serratia marcescens 12/10/17 10:50 Chest Acid Fast Bacilli Smear - Final 12/10/17 10:50 Chest Acid Fast Bacilli Culture - Preliminary 12/10/17 10:45 Chest Acid Fast Bacilli Smear - Final 12/10/17 10:45 Chest Acid Fast Bacilli Culture - Preliminary 12/10/17 10:50 Chest Fungal Culture - Preliminary 12/10/17 10:40 Chest Fungal Culture - Preliminary 12/10/17 10:45 Chest Fungal Culture - Preliminary 12/07/17 15:40 Chest Gram Stain - Final 12/07/17 15:40 Chest Wound Culture - Final Serratia marcescens 12/04/17 10:00 Urine,Voided Urine Culture - Final Escherichia coli Serratia marcescens 11/26/17 04:00 Sputum Gram Stain - Final 11/26/17 04:00 Sputum Sputum Culture - Final - Labs CBC & Chem 7: 12/17/17 04:45 12/17/17 04:45 Labs: Abnormal Lab Results - Last 24 Hours (Table) 12/17/17 12/17/17 12/17/17 Range/Units 00:10 04:45 04:45 WBC 17.8 H (3.8-10.6) k/uL RBC 3.00 L (3.80-5.40) m/uL Hgb 8.1 L (11.4-16.0) gm/dL Hct 25.3 L (34.0-46.0) % RDW 20.4 H (11.5-15.5) % Neutrophils # 16.1 H (1.3-7.7) k/uL PT (9.0-12.0) sec INR (<1.2) ABG pH (7.35-7.45) ABG pO2 (83-108) mmHg ABG HCO3 (21-25) mmol/L ABG Total CO2 (19-24) mmol/L ABG O2 Saturation (94-97) % Carbon Dioxide 33 H (22-30) mmol/L BUN 40 H (7-17) mg/dL Glucose 106 H (74-99) mg/dL POC Glucose (mg/dL) 115 H (75-99) mg/dL Calcium 7.9 L (8.4-10.2) mg/dL AST 56 H (14-36) U/L Total Protein 5.2 L (6.3-8.2) g/dL Albumin 2.3 L (3.5-5.0) g/dL 12/17/17 12/17/17 12/17/17 Range/Units 04:45 06:00 07:52 WBC (3.8-10.6) k/uL RBC (3.80-5.40) m/uL Hgb (11.4-16.0) gm/dL Hct (34.0-46.0) % RDW (11.5-15.5) % Neutrophils # (1.3-7.7) k/uL PT 13.8 H (9.0-12.0) sec INR 1.5 H (<1.2) ABG pH 7.48 H (7.35-7.45) ABG pO2 134 H (83-108) mmHg ABG HCO3 30 H (21-25) mmol/L ABG Total CO2 32 H (19-24) mmol/L ABG O2 Saturation 99.6 H (94-97) % Carbon Dioxide (22-30) mmol/L BUN (7-17) mg/dL Glucose (74-99) mg/dL POC Glucose (mg/dL) 107 H (75-99) mg/dL Calcium (8.4-10.2) mg/dL AST (14-36) U/L Total Protein (6.3-8.2) g/dL Albumin (3.5-5.0) g/dL 12/17/17 12/17/17 Range/Units 13:20 19:07 WBC (3.8-10.6) k/uL RBC (3.80-5.40) m/uL Hgb (11.4-16.0) gm/dL Hct (34.0-46.0) % RDW (11.5-15.5) % Neutrophils # (1.3-7.7) k/uL PT (9.0-12.0) sec INR (<1.2) ABG pH (7.35-7.45) ABG pO2 (83-108) mmHg ABG HCO3 (21-25) mmol/L ABG Total CO2 (19-24) mmol/L ABG O2 Saturation (94-97) % Carbon Dioxide (22-30) mmol/L BUN (7-17) mg/dL Glucose (74-99) mg/dL POC Glucose (mg/dL) 112 H 101 H (75-99) mg/dL Calcium (8.4-10.2) mg/dL AST (14-36) U/L Total Protein (6.3-8.2) g/dL Albumin (3.5-5.0) g/dL Microbiology - Last 24 Hours (Table) 12/15/17 10:40 Gram Stain - Final Bronchial Washings - Left Bronchial Washings Culture - Final Rachana albicans 12/14/17 21:30 Gram Stain - Final Sputum Sputum Culture - Final Rachana albicans Assessment and Plan Assessment: 1. Status post CABG with mitral valve replacement 2. Acute blood loss anemia with massive blood transfusions postoperatively, in a patient with history of GI bleed 3. Hypertension 4. Left subclavian stenosis 5. Proximal atrial fibrillation/flutter status post cardioversion with recurrence of atrial fibrillation 6. Acute Hypoxic respiratory failure, Re intubated. 7. Obesity, BMI 41.6 8. S/P PICC line placement 9. 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 Acute UTI Serratia marcescens, E. coli 11. Bilateral pleural effusions, improved with diuretics. Possible aspiration pneumonia, possible fluid overload. 12. Sternal wound debridement, culture growing Serratia marcescens, placement of wound VAC. 13. Pressure ulceration of back and buttocks, stage III 14. Diarrhea, ruling out C. difficile colitis. 15. Status post bronchoscopy with left lower lobe mucous plug discovered, cultures pending Plan: Continue on current medication regime , amiodarone, metoprolol , monitoring and symptomatic treatment. Weaning trials in progress as per pulmonary. Maintain IV antibiotics.Continue nebulized bronchodilators, IV steroids. Sternal wound flap grafting pending. The impression and plan of care has been dictated as directed. : I performed a history and examination of this patient, discussed the same with the dictator. I agree with the dictator's note ,documented as a scribe. Any additional findings or plans will be noted.
[2017-12-17] MEDS: SENNOSIDES-DOCUSATE SODIUM 1 EACH TAB PO SCH (21:04)
[2017-12-17] MEDS: ESCITALOPRAM 10 MG TAB PO SCH (21:04)
[2017-12-18 00:08] LABS: Glucose,Whole Blood 89 mg/dL (75-99)
[2017-12-18] MEDS: INSULIN ASPART 100 UNIT/ML 1 ML 10 ML VIAL SQ SCH ×4 (00:47→18:12)
[2017-12-18] MEDS: PROPOFOL 1,000 MG in EMPTY BAG 1 BAG IV SCH ×2 (00:57→20:01)
[2017-12-18 05:10] LABS: Anisocytosis Moderate; Basophils % (A) 0 %; Eosinophils # (A) 0.1 k/uL (0-0.7); Eosinophils % (A) 1 %; HCT 25.9 % (34.0-46.0); HGB 8.1 gm/dL (11.4-16.0); Hypochromasia Marked; Lymphocytes # (A) 0.8 k/uL (1.0-4.8); Lymphocytes % (A) 5 %; MCH 27.2 pg (25.0-35.0); MCHC 31.4 g/dL (31.0-37.0); MCV 86.5 fL (80.0-100.0); Mean Platelet Volume 6.9; Monocytes # (A) 0.4 k/uL (0-1.0); Monocytes % (A) 2 %; Neutrophils # (A) 15.5 k/uL (1.3-7.7); Neutrophils % (A) 92 %; Platelet Count 186 k/uL (150-450); Poikilocytosis Moderate; RBC 2.99 m/uL (3.80-5.40); RDW 20.2 % (11.5-15.5); WBC 16.9 k/uL (3.8-10.6)
[2017-12-18 05:23] LABS: ALT 36 U/L (9-52); AST 67 U/L (14-36); Albumin 2.2 g/dL (3.5-5.0); Alkaline Phosphatase 112 U/L (38-126); Anion Gap 3 mmol/L; Blood Urea Nitrogen 42 mg/dL (7-17); Calcium 7.9 mg/dL (8.4-10.2); Carbon Dioxide 33 mmol/L (22-30); Chloride 101 mmol/L (98-107); Glucose 101 mg/dL (74-99); Magnesium 2.2 mg/dL (1.6-2.3); Phosphorus 2.7 mg/dL (2.5-4.5); Potassium 3.7 mmol/L (3.5-5.1); Sodium 137 mmol/L (137-145); Total Bilirubin 0.4 mg/dL (0.2-1.3); Total Protein 5.2 g/dL (6.3-8.2)
[2017-12-18] MEDS ORDERED: POTASSIUM BICARBONATE/CIT AC 20 MEQ TABLET.EFF NG-TUBE SCH (06:00)
--- NOTE | 2017-12-18 07:04 | XR ---
EXAMINATION TYPE: XR chest 1V portable DATE OF EXAM: 12/18/2017 HISTORY: Tube placement. REFERENCE: Previous study dated 12/17/2017. FINDINGS: The patient is ET tube and NG tube remain in place, unchanged in appearance. A left pleural drain remains in place. The heart is enlarged. There is vascular congestion and mild edema. There is a mitral valvular replac ement. There is a left-sided effusion as well as some left basilar airspace disease. IMPRESSION: 1. MILD CHANGES OF CONGESTIVE HEART FAILURE. 2. CARDIOMEGALY. 3. LEFT-SIDED EFFUSION. 4. LEFT BASILAR AIRSPACE DISEASE.
[2017-12-18 08:11] LABS: ABG HCO3 32 mmol/L (21-25); ABG PCO2 46 mmHg (35-45); ABG PH 7.46 (7.35-7.45); ABG PO2 115 mmHg (83-108); ABG TCO2 34 mmol/L (19-24)
[2017-12-18] MEDS ORDERED: FUROSEMIDE 10 MG/ML 4 ML VIAL IV STA (08:34)
[2017-12-18] MEDS ORDERED: ALBUMIN HUMAN 25% 50 ML in EMPTY BAG 1 BAG IVPB ONE (08:34)
[2017-12-18] MEDS: BUDESONIDE 1 MG/2 ML NEBU INHALATION SCH ×2 (08:52→22:02)
[2017-12-18] MEDS: IPRATROPIUM-ALBUTEROL 3 ML NEB INHALATION SCH ×4 (08:52→22:03)
[2017-12-18] MEDS: AMIODARONE 200 MG TAB PO SCH ×2 (09:20→21:34)
[2017-12-18] MEDS: PANTOPRAZOLE 40 MG TABLET PO SCH (09:20)
[2017-12-18] MEDS: CHLORHEXIDINE GLUCONATE 15 ML CUP MUCOUS MEM SCH ×2 (09:22→21:34)
[2017-12-18] MEDS: ATORVASTATIN 40 MG TAB PO SCH (09:22)
[2017-12-18] MEDS: ASPIRIN 81 MG PO SCH (09:22)
[2017-12-18] MEDS: LACTOBACILLUS ACIDOPH & BULGAR 1 EACH PACKET PO SCH ×3 (09:22→21:34)
[2017-12-18] MEDS: METOPROLOL TARTRATE 50 MG TAB PO SCH ×2 (09:23→21:34)
--- NOTE | 2017-12-18 09:55 | P.PN ---
Subjective Progress Note Date: 12/18/17 Principal diagnosis: Severe mitral regurgitation. Coronary artery disease. Paroxysmal atrial fibrillation on Coumadin for anticoagulation. Recent hospitalization for lower GI bleed, duodenal ulcer. History of left subclavian stenosis with stent placement 2014 with recent discovery of critical re-in-stent stenosis. Previous tobacco dependence with preoperative FEV1 60% of predicted. Hypertension. Hyperlipidemia. Gallbladder disease. Family history of heart disease. Preoperative nasal swab positive for MRSA. Preoperative anemia. POD #23 mitral valve replacement using a 25 mm Ribera bioprosthetic tissue valve. Coronary artery bypass grafting 1, reverse saphenous vein graft to the obtuse marginal artery. Maze procedure. Endoscopic harvesting of the right greater saphenous vein. Epi-aortic ultrasound. Intraoperative transesophageal echocardiogram. Ligation of the left atrial appendage using a 40 mm AtriClip. Intraoperative left ventricular wall tear, an unexpected but potential outcome of surgery Acute blood loss anemia, and expected outcome given patient's preoperative anemia and intraoperative bleeding. Postoperative prolonged mechanical ventilation secondary to hemodynamic instability, and unexpected but potential outcome of surgery given the extensive nature of her perioperative course Sternal incision dehiscence, a possible outcome of surgery given patient's obesity, nutrition status, debility POD #8 sternal wound debridement with placement of wound VAC. Postoperative left lower lobe collapse secondary to mucous plugging, and unexpected but potential outcome of surgery. Bronchial washings positive for Rachana species. POD #3 bronchoscopy and bronchoalveolar lavage of the left lower lobe and extraction of mucous plug Patient's currently lying in bed in no acute distress on mechanical ventilation. Patient was given CPAP trials to exercise her lungs yesterday. Objective - Vital Signs Vital signs: Vital Signs Temp 98.5 F 18 08:00 Pulse 72 12/18/17 09:08 Resp 13 18 09:00 BP 128/52 12/16/17 09:50 Pulse Ox 100 12/18/17 09:00 Intake & Output 12/17/17 12/18/17 12/18/17 18:59 06:59 18:59 Intake Total 1223 1499 186 Output Total 435 640 100 Balance 788 859 86 Weight 111.7 kg Intake: IV 253 399 46 Meropenem 1 gm In Sodium 100 Chloride 0.9% 100 ml @ 100 mls/hr IVPB Q8HR [facility] Rx#:[id number] Pressure Bag 33 39 6 Sodium Chloride 0.9% 1, 220 260 40 000 ml @ 20 mls/hr IV . Q24H [facility] Rx#:[id number] Intake, IV Titration 100 Amount Norepinephrin 16 mg-0.9% 0 Ns Pmx 16 mg In 250 ml @ Titrate IV .Q0M [facility] Rx#: [id number] Propofol 1,000 mg In 100 Empty Bag 1 bag @ Titrate IV .Q0M [facility] Rx#: [id number] Oral 100 Tube Feeding 640 720 80 Other 330 180 60 Output: Chest Tube Drainage 10 Pleural Catheter Left 10 Drainage 100 Medial Chest Incision - 100 Woundvac Urine 435 530 100 Other: Voiding Method Indwelling Catheter Indwelling Catheter ABP, PAP, CO, CI - Last Documented Arterial Blood Pressure 121/51 Pulmonary Artery Pressure 38/33 Cardiac Output 5.8 Cardiac Index 2.9 - Constitutional General appearance: Present: no acute distress, obese - Respiratory Details: Lungs sounds diminished bilaterally. Respirations even, nonlabored on mechanical ventilation. Current settings assist control mode, FiO2 40%, tidal volume 500, respiratory rate 14, PEEP 5. ABGs this morning 7.46/46/115/32/9.0/ 99% on 40% FiO2. Left pleural chest tube to continuous wall suction, 10 mL of thin serous drainage in the last 24 hours, no air leak present. - Cardiovascular Details: S1, S2 present. Regular rate and rhythm, sinus rhythm on telemetry. Chest, wound VAC in place to suction. Palpable peripheral pulses bilaterally. Generalized edema present. Right brachial arterial line, left brachial PICC line present. Antiembolism stockings, SCDs present. - Gastrointestinal Gastrointestinal Comment(s): Abdomen soft, nontender, nondistended. Active bowel sounds 4 quadrants. OG tube present. Tube feedings infusing at 40 mL/h, minimal residual per nursing. - Genitourinary Genitourinary Comment(s): Mason present draining clear, yellow urine. Output 35-40 mL per hour overnight. - Integumentary Integumentary Comment(s): Skin is warm and dry. Anterior chest incision open, wound VAC in place. Sacral ulcer with local wound care. - Neurologic Neurologic Comment(s): Sedated on propofol. Does open eyes and follows commands - Musculoskeletal Musculoskeletal: Present: generalized weakness - Allied health notes Allied health notes reviewed: nursing - Labs CBC & Chem 7: 12/18/17 05:00 12/18/17 05:00 Labs: Abnormal Lab Results - Last 24 Hours (Table) 12/17/17 12/17/17 12/18/17 Range/Units 13:20 19:07 05:00 WBC 16.9 H (3.8-10.6) k/uL RBC 2.99 L (3.80-5.40) m/uL Hgb 8.1 L (11.4-16.0) gm/dL Hct 25.9 L (34.0-46.0) % RDW 20.2 H (11.5-15.5) % Neutrophils # 15.5 H (1.3-7.7) k/uL Lymphocytes # 0.8 L (1.0-4.8) k/uL ABG pH (7.35-7.45) ABG pCO2 (35-45) mmHg ABG pO2 (83-108) mmHg ABG HCO3 (21-25) mmol/L ABG Total CO2 (19-24) mmol/L ABG O2 Saturation (94-97) % Carbon Dioxide (22-30) mmol/L BUN (7-17) mg/dL Glucose (74-99) mg/dL POC Glucose (mg/dL) 112 H 101 H (75-99) mg/dL Calcium (8.4-10.2) mg/dL AST (14-36) U/L Total Protein (6.3-8.2) g/dL Albumin (3.5-5.0) g/dL 12/18/17 12/18/17 Range/Units 05:00 07:51 WBC (3.8-10.6) k/uL RBC (3.80-5.40) m/uL Hgb (11.4-16.0) gm/dL Hct (34.0-46.0) % RDW (11.5-15.5) % Neutrophils # (1.3-7.7) k/uL Lymphocytes # (1.0-4.8) k/uL ABG pH 7.46 H (7.35-7.45) ABG pCO2 46 H (35-45) mmHg ABG pO2 115 H (83-108) mmHg ABG HCO3 32 H (21-25) mmol/L ABG Total CO2 34 H (19-24) mmol/L ABG O2 Saturation 99.0 H (94-97) % Carbon Dioxide 33 H (22-30) mmol/L BUN 42 H (7-17) mg/dL Glucose 101 H (74-99) mg/dL POC Glucose (mg/dL) (75-99) mg/dL Calcium 7.9 L (8.4-10.2) mg/dL AST 67 H (14-36) U/L Total Protein 5.2 L (6.3-8.2) g/dL Albumin 2.2 L (3.5-5.0) g/dL Microbiology - Last 24 Hours (Table) 12/15/17 10:40 Gram Stain - Final Bronchial Washings - Left Bronchial Washings Culture - Final Rachana albicans 12/14/17 21:30 Gram Stain - Final Sputum Sputum Culture - Final Rachana albicans - Imaging and Cardiology Chest x-ray: report reviewed, image reviewed Assessment and Plan (1) Acute blood loss anemia Current Visit: Yes Status: Acute Code(s): D62 - ACUTE POSTHEMORRHAGIC ANEMIA SNOMED Code(s): 257212360 (2) CAD (coronary artery disease) Current Visit: Yes Status: Chronic Code(s): I25.10 - ATHSCL HEART DISEASE OF [place] CORONARY ARTERY W/O ANG PCTRS SNOMED Code(s): 89371040 (3) Hyperlipidemia Current Visit: Yes Status: Chronic Code(s): E78.5 - HYPERLIPIDEMIA, UNSPECIFIED SNOMED Code(s): 66888456 (4) Hypertension Current Visit: Yes Status: Chronic Code(s): I10 - ESSENTIAL (PRIMARY) HYPERTENSION SNOMED Code(s): 91080601 (5) Severe mitral regurgitation Current Visit: Yes Status: Chronic Code(s): I34.0 - NONRHEUMATIC MITRAL ( VALVE) INSUFFICIENCY SNOMED Code(s): 56066090 (6) Stenosis of left subclavian artery Current Visit: Yes Status: Chronic Code(s): I77.1 - STRICTURE OF ARTERY SNOMED Code(s): 60974664677934627 (7) Paroxysmal atrial fibrillation Current Visit: No Status: Resolved Code(s): I48.0 - PAROXYSMAL ATRIAL FIBRILLATION SNOMED Code(s): 670033045 (8) History of GI bleed Current Visit: No Status: Resolved Code(s): Z87.19 - PERSONAL HISTORY OF OTHER DISEASES OF THE DIGESTIVE SYSTEM SNOMED Code(s): 408448589 (9) Family history of coronary artery disease Current Visit: Yes Status: Chronic Code(s): Z82.49 - FAMILY HX OF ISCHEM HEART DIS AND OTH DIS OF THE CIRC SYS SNOMED Code(s): 108205727 Plan: 1. Continue baby aspirin, statin, beta krunal. Will increase beta krunal therapy as tolerated. 2. Continue amiodarone for atrial fibrillation prophylaxis. No further IV amiodarone. 3. Ventilator management per pulmonology. Wean as tolerated. 4. Sternal incision cultured, consistent with Serratia. Continue meropenem per Dr. Olivera. Wound VAC in place to be changed Wednesday, Wednesday, and Fridays. Dr. Krause consulted future wound flap closure, current plans for Wednesday. Sputum culture, bronchial washings positive for Rachana. Will discuss with Dr. Olivera adding antifungal. 5. Will monitor labs, chest x-rays. 6. Will give 25% albumin followed by 40 mg IV Lasix today. 7. Bronchodilators per pulmonology. 8. Will hold off on Coumadin for now as patient is preparing for repeat surgery next week. No IV heparin. 9. GI/DVT prophylaxis. 10. Increase activity once extubated. PT/OT/cardiac rehab following. 11. Continue tube feedings for maximum nutrition. 12. Keep Mason for strict accurate intake and output. 13. Keep left pleural chest tube for now to continuous wall suction. 14. More recommendations as patient progresses. Time with Patient: Greater than 30
[2017-12-18] MEDS: MEROPENEM 1 GM in SODIUM CHLORIDE 0.9% 100 ML IVPB SCH ×2 (11:06→18:12)
[2017-12-18] MEDS: VANCOMYCIN 1,750 MG in SODIUM CHLORIDE 0.9% 250 ML IVPB SCH (11:07)
[2017-12-18] MEDS: SODIUM CHLORIDE 0.9% 1,000 ML IV SCH (11:07)
[2017-12-18 11:50] LABS: Glucose,Whole Blood 94 mg/dL (75-99)
[2017-12-18] MEDS: FLUCONAZOLE IN NACL,ISO-OSM 200 MG in SALINE 1 100ML.BAG IVPB SCH (13:05)
--- NOTE | 2017-12-18 13:31 | P.PN ---
Subjective Progress Note Date: 12/18/17 Principal diagnosis: Status post mitral valve replacement with maze procedure postoperative day # 22 On 12/11/2017 I'm seeing this patient for a follow-up. The patient is this morning, comfortable in the BiPAP. She is using the BiPAP on and off during the day. She was taken to the operating room where his surgical wound was debrided and the sternum was debrided and the wound VAC was applied. There is a positive gram-negative infection with Serratia and the patient is currently on IV Merrem. Also, left-sided chest tube was inserted. The chest tube drained approximately 130 mL of fluid for yesterday since it was placed and another 60 mL for today. The patient's pleural wound VAC has drained approximately 550 mL for yesterday and another 100 mL for today. The patient is afebrile. The patient is hemodynamically stable. The patient went into atrial fibrillation and this morning she converted into sinus and she is back and forth between flutter and sinus rhythm. She is on no pressors. Her INR is at 1.8. No anticoagulation will be offered today. Lasix surgery consultation was obtained for a future muscle flap. Hemoglobin is at 7.7. White cell count is at 16.3. The function is stable with a creatinine of 0.8. She is using incentive spirometer. She has no other complaints otherwise for now. On 12/12/2017, the patient is still doing well. The patient is sitting up in her bed and she is on a BiPAP at a pressure of 14/5 cm of water with an FiO2 of 50%. Her chest x-ray is quite stable and the patient has still a persistent consolidation/opacity in the left lung base. I have scanned the patient earlier this week and the findings the left lung bases consistent with some posterior pericardial effusion, atelectasis and small effusions. For that reason a chest tube was inserted and the total amount of output from the chest tube was 300 mL and since then the output has dropped considerably. The wound VAC is in place and the total amount of output over the past 12 hours as been around 250 mL. The wound cultures are showing gram-negative, the previous fluid drainage was positive for Serratia and the patient is currently on IV Merrem. White cell count is up to 19 and this is something to monitor knowing that her white cell count from yesterday was 16.3. Renal function is stable. She is producing adequate amount of urine output. Abdomen today is at 8.1. She is weak. She is taking approximately 20% of her diet and she is drinking a sure. Her cardiac rhythm is a flutter with 2 to one block and since this morning the patient became progressively more tachycardic. She received an additional amiodarone dose yesterday without much benefit. She is on beta blockers on metoprolol at a dose of 50 mg by mouth twice a day. She became slightly hypotensive yesterday and she was supposed to get albumin which was not given as the patient's blood pressure subsequently improved. She is off anticoagulation awaiting a sternal flap and the patient's INR today is at 1.7. Patient was reevaluated today on 12/13/2017, remains with very marginal pulmonary status, remains on BiPAP, FiO2 of 50%, IPAP of 14 and EPAP of 5. Chest x-ray seems to be worsening, CT of the chest is also worsening there is also a near-complete collapse of the left lung, only a small portion of the upper lobe remains aerated. Small pleural effusions noted, and what is worsening is the fact that she has an enlarging moderate to large pericardial effusion measuring 2.7 cm in thickness. This is along the left heart margin but increasing along the right heart margin measuring now 1.7 cm compared to 1 cm previously. Considering the findings, I felt strongly that the patient may benefit from bronchoscopy and left lung evaluation, however with the finding of increasing pericardial effusion, may have to be seen by thoracic surgery and consider a pericardial window. Her labs were reviewed, WBC count is 24.6 hemoglobin is 8.6 and her INR is 1.8. Patient is noted to be a bit dyspneic on BiPAP at 50%. Patient was reevaluated today on 12/14/2017, remains on BiPAP, patient is afraid to get off BiPAP. Same settings including IPAP of 14 and EPAP of 5, and she is on 50% FiO2. No evidence of leak, her tidal volume is anywhere between 450-500 , and her rate is about 18. Chest x-ray today showed slight improvement in the left lung collapse, however continues to have significant collapse of the left lower lobe. No bronchoscopy was done yesterday mostly because of the abnormal finding regarding her pericardial effusion, and we were not certain whether the patient will need a pericardial window at the time. The surgeons felt no need for pericardial window, patient was scheduled for bronchoscopy early this morning, but her INR is elevated, hence we recommended 2 units of fresh frozen plasma, and I still plan to do the bronchoscopy this afternoon. Family was made aware of the reasons for delay, but hopefully we can get it done sometime this afternoon. Labs were reviewed, her WBC count is 17.1 hemoglobin is 10.2 her INR was 2.1 earlier today. Rest of the labs were reviewed. Hemodynamically the patient is stable, intermittently she may have episodes of atrial flutter without hemodynamic instability. Reevaluated today on 12/15/2017, patient's condition worsened late p.m. yesterday , she was in atrial flutter, developed worsening shortness of breath, and did not improve with diuretics, BiPAP, and given multiple meds to control her atrial flutter including amiodarone, and she was given beta blockers. Patient continued to show worsening dyspnea, and she was intubated placed on mechanical ventilation. Immediate chest x-ray post intubation showed adequate expansion of the left lower lobe, however follow-up chest x-ray today showed left lower lobe collapse. I performed bronchoscopy on the patient today, she was given earlier 2 more units of fresh frozen plasma, and I proceeded to bronchoscopy and BAL of the left lower lobe. Indeed there was a mucous plug in the left lower lobe bronchus, this was suctioned, and lavage of the whole left lower lobe was done. Fluid was sent for different diagnostic studies, please refer to the full operative report. Vent settings were reviewed, patient is now on assist control rate of 18, 45% FiO2, and tidal volume of 500 PEEP is at 5. ABG showed a pO2 of 123 pCO2 of 43 pH of 7.50 antibiotics mcguire, patient is now on Merrem and vancomycin. Reevaluated today on 12/16/2017, patient remains on mechanical ventilation, same vent settings as noted above, however her FiO2 is down to 40%, PEEP remains at 5 , tidal volume is 500 and assist control rate of 18. ABG is excellent. Patient remains on antibiotics in the form of Merrem and vancomycin. Her wound VAC was addressed today by Dr. richi harrison on the case, and the sternal wound was cleaned and one VAC placed again. Awaiting final myocutaneous flap by plastic surgery. In the meantime I believe the patient will be extremely difficult to wean and extubate successfully, we'll try to find out as when her surgery is scheduled for her sternum. Onset the sternum is stabilized, it will be much easier to perform successful weaning and extubation. Otherwise the patient will have to be extubated again to a BiPAP, and she would likely continue to collapse her lower lobes. Today the patient received a unit of packed RBCs for low hemoglobin. Patient was reevaluated today on 12/17/2017, remains on mechanical ventilation, ventilator settings are tidal volume of 500 assist control rate of 18 FiO2 of 40 % and PEEP of 5. ABG showed a pO2 of 134 pCO2 of 41 pH of 7.48. WBC count is 17.8 hemoglobin is 8.1 INR is 1.5. Chest x-ray is showing overall improvement especially in the left lower lobe compared to previous x-rays. Better aeration of the left lower lobe is noted. Small bilateral pleural effusions noted. Left -sided chest tube remains in place. Minimal atelectasis noted in the left lower lobe, but again it is improved compared to previous x-rays. Basic metabolic profile is normal renal profile is normal. Patient is hemodynamically stable, off norepinephrine. Continues to have a wound VAC in place, and remains on the same antibiotics as per infectious disease. Reevaluated today on 12/18/2017, remains on mechanical ventilations, same ventilator settings as noted above. ABG showed a pO2 of 115 pCO2 of 46 pH of 7.46. CBC showed leukocytosis with WBC count of 16.9 hemoglobin is 8.1. Basic metabolic profile is normal. Renal profile showed a BUN of 42 creatinine of 0.60. Chest x-ray showed mild congestive changes, small left pleural effusion and atelectasis is noted. All meds were reviewed, patient is hemodynamically stable, not requiring any pressors. All the cultures were reviewed, and the only significant culture is the chest wall cultures showing Serratia marcescens back from 12/10/2017. That BAL cultures were negative except for some Rachana, felt to be contamination from oral mucosa. Objective - Vital Signs Vital signs: Vital Signs Temp 97.5 F L 12/18/17 12:00 Pulse 78 12/18/17 13:00 Resp 34 H 12/18/17 13:00 BP 128/52 12/16/17 09:50 Pulse Ox 100 12/18/17 13:00 Intake & Output 12/17/17 12/18/17 12/18/17 18:59 06:59 18:59 Intake Total 1223 1499 312 Output Total 435 640 175 Balance 788 859 137 Weight 111.7 kg 111.7 kg Intake: IV 253 399 92 Meropenem 1 gm In Sodium 100 Chloride 0.9% 100 ml @ 100 mls/hr IVPB Q8HR [facility] Rx#:[id number] Pressure Bag 33 39 12 Sodium Chloride 0.9% 1, 220 260 80 000 ml @ 20 mls/hr IV . Q24H [facility] Rx#:[id number] Intake, IV Titration 100 Amount Norepinephrin 16 mg-0.9% 0 Ns Pmx 16 mg In 250 ml @ Titrate IV .Q0M [facility] Rx#: [id number] Propofol 1,000 mg In 100 Empty Bag 1 bag @ Titrate IV .Q0M [facility] Rx#: [id number] Oral 100 Tube Feeding 640 720 160 Other 330 180 60 Output: Chest Tube Drainage 10 Pleural Catheter Left 10 Drainage 100 Medial Chest Incision - 100 Woundvac Urine 435 530 175 Other: Voiding Method Indwelling Catheter Indwelling Catheter Indwelling Catheter ABP, PAP, CO, CI - Last Documented Arterial Blood Pressure 117/47 Pulmonary Artery Pressure 38/33 Cardiac Output 5.8 Cardiac Index 2.9 - Exam - Constitutional General appearance: Physical exam revealed a 67-year-old, female, intubated, presently on propofol, fully sedated. - EENT ENT: Moist mucous membranes, no neck masses, endotracheal tube is intact. - Neck Details: No neck masses, no JVD, throat is clear, no stridor. - Respiratory Details: diminished breath sounds at the bases, airflow to both lungs is symmetrical. Left pleural chest tube remains intact evacuating thin serosanguineous drainage. No air leak present. Chest tube remains to low continuous wall suction -20 cm H2O. sternal wound VAC is noted. - Cardiovascular Details: Irregular rhythm , normal S1 and S2 present, negative for S3, gallop or murmur. Sternal wound with wound VAC in place, - Gastrointestinal Gastrointestinal Comment(s): Obese, soft, nontender, no megaly, no rebound, no guarding, positive bowel sounds.- Genitourinary Genitourinary Comment(s): Mason catheter remains in place with good urine output - Integumentary Integumentary Comment(s): Skin is relatively unremarkable.. Wound VAC in place to sternal wound. Positive serosanguineous drainage. Stage II wound to her coccyx with local with wound care treatment. No clubbing or cyanosis. - Neurologic Neurologic: Cannot be assessed today, presently on propofol. - Musculoskeletal Musculoskeletal: Relatively unremarkable. - Psychiatric Psychiatric: Cannot be assessed fully sedated today, however I plan to discontinue propofol and reassess. - Labs CBC & Chem 7: 12/18/17 05:00 12/18/17 05:00 Labs: Abnormal Lab Results - Last 24 Hours (Table) 12/17/17 12/18/17 12/18/17 Range/Units 19:07 05:00 05:00 WBC 16.9 H (3.8-10.6) k/uL RBC 2.99 L (3.80-5.40) m/uL Hgb 8.1 L (11.4-16.0) gm/dL Hct 25.9 L (34.0-46.0) % RDW 20.2 H (11.5-15.5) % Neutrophils # 15.5 H (1.3-7.7) k/uL Lymphocytes # 0.8 L (1.0-4.8) k/uL ABG pH (7.35-7.45) ABG pCO2 (35-45) mmHg ABG pO2 (83-108) mmHg ABG HCO3 (21-25) mmol/L ABG Total CO2 (19-24) mmol/L ABG O2 Saturation (94-97) % Carbon Dioxide 33 H (22-30) mmol/L BUN 42 H (7-17) mg/dL Glucose 101 H (74-99) mg/dL POC Glucose (mg/dL) 101 H (75-99) mg/dL Calcium 7.9 L (8.4-10.2) mg/dL AST 67 H (14-36) U/L Total Protein 5.2 L (6.3-8.2) g/dL Albumin 2.2 L (3.5-5.0) g/dL 12/18/17 Range/Units 07:51 WBC (3.8-10.6) k/uL RBC (3.80-5.40) m/uL Hgb (11.4-16.0) gm/dL Hct (34.0-46.0) % RDW (11.5-15.5) % Neutrophils # (1.3-7.7) k/uL Lymphocytes # (1.0-4.8) k/uL ABG pH 7.46 H (7.35-7.45) ABG pCO2 46 H (35-45) mmHg ABG pO2 115 H (83-108) mmHg ABG HCO3 32 H (21-25) mmol/L ABG Total CO2 34 H (19-24) mmol/L ABG O2 Saturation 99.0 H (94-97) % Carbon Dioxide (22-30) mmol/L BUN (7-17) mg/dL Glucose (74-99) mg/dL POC Glucose (mg/dL) (75-99) mg/dL Calcium (8.4-10.2) mg/dL AST (14-36) U/L Total Protein (6.3-8.2) g/dL Albumin (3.5-5.0) g/dL Microbiology - Last 24 Hours (Table) 12/15/17 10:40 Gram Stain - Final Bronchial Washings - Left Bronchial Washings Culture - Final Rachana albicans 12/14/17 21:30 Gram Stain - Final Sputum Sputum Culture - Final Rachana albicans Assessment and Plan Assessment: 1. Severe mitral valve regurgitation, status post mitral valve replacement, with Maze procedure, left atrial appendage exclusion, and one-vessel bypass, postop day # 22 2 sternal wound dehiscence/infection with gram-negative infection and the patient has Serratia currently on Merrem. The patient underwent debridement and the wound VAC is applied. She will ultimately need a flap and plastic surgery this is yet to be decided, most likely it would happen early next week either Wednesday or Wednesday according to the surgeons. 3 left basilar atelectasis/and left lower lobe collapse, status post bronchoscopy and lavage of the left lower lobe on 12/15/2017. Cultures were nondiagnostic and thus not surprising considering the patient was already on broad-spectrum antibiotics coverage. 4 acute respiratory failure, hypoxic requiring reintubation and mechanical ventilation. 5. acute urinary tract infection, urine culture positive for E. coli and Serratia marcescens, on meropenem 6. Anemia, multifactorial in the patient's hemoglobin is 8.1 7 paroxysmal atrial flutter with rapid ventricular response currently on beta blockers and oral amiodarone, anticoagulation therapy is presently on hold because of bleeding from the wound VAC was noted. Presently heparin and Coumadin are both on hold. 8 left subclavian stenosis 9 leukocytosis 10 obesity 11 previous history of GI bleed 12 pressure ulceration in the back and buttocks, stage III Recommendation: Continue present supportive care measures, continue mechanical ventilation, continue nutritional support, hemodynamic support, continue intermittent trials on pressure support and CPAP, and intermittently switching to assist control mode for the next couple of days. Hoping we could have the surgery on the sternum done early next week, and the patient will be ready for extubation. If extubated now, patient will definitely and most likely will go on BiPAP. Critical care time is 32 minutes. Time with Patient: Greater than 30
--- NOTE | 2017-12-18 14:02 | PN ---
PROGRESS NOTE Maritza is a 67-year-old lady that I am seeing for the first time today. She has had a fairly prolonged and complex hospital course, underwent bypass surgery along with mitral valve replacement and subsequently had sternal wound dehiscence and has had debridement. She is currently awaiting surgery by plastic surgeon. She is intubated on vent and remains on amiodarone for atrial tachyarrhythmias. The patient has chronic A. Fib and was on Coumadin at home. Here the anticoagulants are on hold. The cardiothoracic surgeon does not wish to anticoagulate the patient at this time. PHYSICAL EXAMINATION: On exam, patient is intubated on vent. Chest exam reveals diminished air entry at the bases. Heart exam reveals first and second heart sounds. No gallop. Exam of the extremities reveal trace edema. Peripheral pulses are felt. LABS: Labs show that the hemoglobin is 8.1, platelet count is 186. Potassium is 3.7. Creatinine is 0.6. ASSESSMENT: 1. Coronary artery disease, status post coronary artery bypass grafting, status post mitral valve replacement, status post sternal wound dehiscence. 2. History of chronic atrial fibrillation. PLAN: Continue patient's supportive care. MMODL / IJN: [id number] /
--- NOTE | 2017-12-18 16:45 | PN ---
PROGRESS NOTE DATE OF SERVICE: 12/18/2017 This 67-year-old woman who was admitted with after CAD, CABG, mitral replacement, also had a sternal wound debridement and cultures growing Serratia marcescens. The patient is currently intubated. Patient closely monitored in ICU. EXAM: The patient is mechanically ventilated and sedated. Pulse 78, blood pressure is 117/40, respiration 34, temperature normal. Pulse ox 100% on 40% FiO2. The vent settings are noted. HEENT: Conjunctivae normal. Oral mucosa moist. Neck is no jugular venous distention. No carotid bruit. No lymph node enlargement. CARDIOVASCULAR: S1, S2. RESPIRATORY: Breath sounds diminished in the bases. A few scattered rhonchi and crackles. ABDOMEN: Soft. NERVOUS SYSTEM: Patient mechanically ventilated and sedated. LABS: WBC 15.9, hemoglobin is 8.1, ABGs noted. Otherwise albumin is 2.2. ASSESSMENT: 1. Status post coronary artery disease, CABG and mitral valve replacement. 2. Acute hypoxic respiratory failure, intubation on mechanical ventilation. 3. Status post sternal wound debridement, culture showed Serratia marcescens and wound VAC. 4. Acute blood loss anemia with massive blood transfusion postoperatively. 5. History of gastrointestinal bleed previously. 6. Hypertension. 7. Left subclavian stenosis. 8. Paroxysmal atrial fibrillation flutter status post cardioversion. 9. Obesity with body mass of 41.6. 10.Status post PICC line placement. 11.Urinary tract infection with Serratia marcescens and E. coli. 12.Bilateral pleural effusion, improved with diuretics. 13.Pressure ulceration back and gluteal region, stage III. 14.Status post bronchoscopy with left lower lobe mucus plug removed with Rachana grown from the cultures. RECOMMENDATIONS AND DISCUSSION: I recommend to continue current management and symptomatic treatment. Otherwise at this time I will monitor the patient closely. I would recommend to continue the current medication, antibiotics and antifungal agents. Otherwise bronchodilators. Mechanical ventilation per Dr. Rutledge. Follow closely with Infectious Disease. Guarded prognosis because of multiple complex medical issues. Further recommendations to follow. MMODL / IJN: [id number] /
[2017-12-18 18:06] LABS: Glucose,Whole Blood 94 mg/dL (75-99)
[2017-12-18] MEDS: SENNOSIDES-DOCUSATE SODIUM 1 EACH TAB PO SCH (21:34)
[2017-12-18] MEDS: ESCITALOPRAM 10 MG TAB PO SCH (21:34)
[2017-12-18 23:33] LABS: Glucose,Whole Blood 93 mg/dL (75-99)
[2017-12-19] MEDS: PROPOFOL 1,000 MG in EMPTY BAG 1 BAG IV SCH ×3 (02:32→23:50)
[2017-12-19] MEDS: MEROPENEM 1 GM in SODIUM CHLORIDE 0.9% 100 ML IVPB SCH ×4 (02:33→23:48)
[2017-12-19] MEDS: INSULIN ASPART 100 UNIT/ML 1 ML 10 ML VIAL SQ SCH ×5 (02:33→23:48)
[2017-12-19 06:09] LABS: Anisocytosis Moderate; Basophils % (A) 0 %; Eosinophils # (A) 0.1 k/uL (0-0.7); Eosinophils % (A) 1 %; HCT 24.2 % (34.0-46.0); HGB 7.3 gm/dL (11.4-16.0); Hypochromasia Marked; Lymphocytes # (A) 0.7 k/uL (1.0-4.8); Lymphocytes % (A) 5 %; MCH 26.3 pg (25.0-35.0); MCHC 30.2 g/dL (31.0-37.0); MCV 87.2 fL (80.0-100.0); Mean Platelet Volume 7.6; Monocytes # (A) 0.4 k/uL (0-1.0); Monocytes % (A) 3 %; Neutrophils # (A) 12.4 k/uL (1.3-7.7); Neutrophils % (A) 91 %; Platelet Count 147 k/uL (150-450); Poikilocytosis Slight; RBC 2.78 m/uL (3.80-5.40); WBC 13.7 k/uL (3.8-10.6)
[2017-12-19 06:16] LABS: ALT 39 U/L (9-52); AST 67 U/L (14-36); Albumin 2.2 g/dL (3.5-5.0); Alkaline Phosphatase 132 U/L (38-126); Anion Gap 6 mmol/L; Blood Urea Nitrogen 43 mg/dL (7-17); Calcium 7.9 mg/dL (8.4-10.2); Carbon Dioxide 34 mmol/L (22-30); Chloride 101 mmol/L (98-107); Glucose 79 mg/dL (74-99); Magnesium 2.2 mg/dL (1.6-2.3); Phosphorus 2.8 mg/dL (2.5-4.5); Potassium 3.8 mmol/L (3.5-5.1); Sodium 141 mmol/L (137-145); Total Bilirubin 0.5 mg/dL (0.2-1.3); Total Protein 5.2 g/dL (6.3-8.2)
--- NOTE | 2017-12-19 06:40 | XR ---
EXAMINATION TYPE: XR chest 1V portable DATE OF EXAM: 12/19/2017 HISTORY: Tube placement. REFERENCE: Previous study dated 12/18/2017. FINDINGS: The patient is ET tube, NG tube and left basilic PICC line remain in place, unchanged in ap pearance. There is a left pleural drain in place. There has been a mitral valvular replacement. There is a stent present in what most likely represents the proximal subclavian artery on the left. The heart is enlarged. There is left basilar airspace disease. There is a small left effusion. The ri ght CP angle is excluded from this study. There has been little interval change in the appearance of the chest. IMPRESSION: NO SIGNIFICANT INTERVAL CHANGE IN APPEARANCE OF THE CHEST.
[2017-12-19 06:57] LABS: Glucose,Whole Blood 104 mg/dL (75-99)
[2017-12-19] MEDS ORDERED: VANCOMYCIN TROUGH DUE 1 EACH MISC MISCELLANE ONE (08:00)
[2017-12-19] MEDS ORDERED: POTASSIUM BICARBONATE/CIT AC 20 MEQ TABLET.EFF NG-TUBE SCH (08:00)
--- NOTE | 2017-12-19 09:03 | P.PN ---
Subjective Progress Note Date: 12/19/17 Principal diagnosis: Severe mitral regurgitation. Coronary artery disease. Paroxysmal atrial fibrillation on Coumadin for anticoagulation. Recent hospitalization for lower GI bleed, duodenal ulcer. History of left subclavian stenosis with stent placement 2014 with recent discovery of critical re-in-stent stenosis. Previous tobacco dependence with preoperative FEV1 60% of predicted. Hypertension. Hyperlipidemia. Gallbladder disease. Family history of heart disease. Preoperative nasal swab positive for MRSA. Preoperative anemia. POD #24 mitral valve replacement using a 25 mm Ribera bioprosthetic tissue valve. Coronary artery bypass grafting 1, reverse saphenous vein graft to the obtuse marginal artery. Maze procedure. Endoscopic harvesting of the right greater saphenous vein. Epi-aortic ultrasound. Intraoperative transesophageal echocardiogram. Ligation of the left atrial appendage using a 40 mm AtriClip. Intraoperative left ventricular wall tear, an unexpected but potential outcome of surgery Acute blood loss anemia, and expected outcome given patient's preoperative anemia and intraoperative bleeding. Postoperative prolonged mechanical ventilation secondary to hemodynamic instability, and unexpected but potential outcome of surgery given the extensive nature of her perioperative course Sternal incision dehiscence, a possible outcome of surgery given patient's obesity, nutrition status, debility POD #9 sternal wound debridement with placement of wound VAC. Postoperative left lower lobe collapse secondary to mucous plugging, and unexpected but potential outcome of surgery. Bronchial washings positive for Rachana species. POD #4 bronchoscopy and bronchoalveolar lavage of the left lower lobe and extraction of mucous plug Patient's currently lying in bed in no acute distress on mechanical ventilation. Was given weaning trial yesterday which patient tolerated well. Objective - Vital Signs Vital signs: Vital Signs Temp 98.2 F 18 04:00 Pulse 72 12/19/17 07:00 Resp 13 18 07:00 BP 128/52 12/16/17 09:50 Pulse Ox 100 12/19/17 07:00 Intake & Output 12/18/17 12/19/17 12/19/17 18:59 06:59 18:59 Intake Total 863 776.538 Output Total 1245 480 Balance -382 296.538 Weight 111.7 kg 111.7 kg Intake: IV 253 276 Pressure Bag 33 36 Sodium Chloride 0.9% 1, 220 240 000 ml @ 20 mls/hr IV . Q24H [facility] Rx#:[id number] Intake, IV Titration 150 180.538 Amount Albumin Human 25% 50 ml 50 In Empty Bag 1 bag @ 100 mls/hr IVPB ONCE ONE Rx#: [id number] Fluconazole in NaCl,Iso- 100 Osm 200 mg In Saline 1 100ml.bag @ 100 mls/hr IVPB DAILY [facility] Rx#: [id number] Propofol 1,000 mg In 180.538 Empty Bag 1 bag @ Titrate IV .Q0M [facility] Rx#: [id number] Tube Feeding 400 320 Other 60 Output: Urine 1245 480 Other: Voiding Method Indwelling Catheter Indwelling Catheter ABP, PAP, CO, CI - Last Documented Arterial Blood Pressure 94/67 Pulmonary Artery Pressure 38/33 Cardiac Output 5.8 Cardiac Index 2.9 - Constitutional General appearance: Present: no acute distress, obese - Respiratory Details: Lungs sounds diminished bilaterally. Respirations even, nonlabored on mechanical ventilation. Current ventilator settings assist control mode, FiO2 40%, tidal volume 500, respiratory rate 14, PEEP of 5, with oxygen saturation 100%. Left pleural chest tube to continuous wall suction, no drainage in the last 24 hours, no air leak present. - Cardiovascular Details: S1, S2 present. Regular rate and rhythm, sinus rhythm on telemetry. Open chest with wound VAC in place. Palpable peripheral pulses bilaterally. Generalized edema present. Right brachial arterial line, left brachial PICC line, antiembolism stockings, SCDs present. - Gastrointestinal Gastrointestinal Comment(s): Abdomen soft, nontender, nondistended. Active bowel sounds 4 quadrants. OG tube present. Tube feeding currently infusing at 40 mL per hour with minimal residual per nursing. - Genitourinary Genitourinary Comment(s): Mason present and clear, yellow urine. Output 40 mL per hour overnight. - Integumentary Integumentary Comment(s): Skin is warm and dry. Open chest with wound VAC in place to suction. Sacral ulcer present with local wound care. - Neurologic Neurologic Comment(s): Currently sedated on propofol. Patient does open eyes and follow commands even while on sedation. - Musculoskeletal Musculoskeletal: Present: generalized weakness - Allied health notes Allied health notes reviewed: nursing - Labs CBC & Chem 7: 12/19/17 05:50 12/19/17 05:50 Labs: Abnormal Lab Results - Last 24 Hours (Table) 03/18/18 03/18/18 03/18/18 Range/Units 05:50 05:50 06:54 WBC 13.7 H (3.8-10.6) k/uL RBC 2.78 L (3.80-5.40) m/uL Hgb 7.3 L (11.4-16.0) gm/dL Hct 24.2 L (34.0-46.0) % MCHC 30.2 L (31.0-37.0) g/dL RDW 20.0 H (11.5-15.5) % Plt Count 147 L (150-450) k/uL Neutrophils # 12.4 H (1.3-7.7) k/uL Lymphocytes # 0.7 L (1.0-4.8) k/uL Carbon Dioxide 34 H (22-30) mmol/L BUN 43 H (7-17) mg/dL POC Glucose (mg/dL) 104 H (75-99) mg/dL Calcium 7.9 L (8.4-10.2) mg/dL AST 67 H (14-36) U/L Alkaline Phosphatase 132 H (38-126) U/L Total Protein 5.2 L (6.3-8.2) g/dL Albumin 2.2 L (3.5-5.0) g/dL - Imaging and Cardiology Chest x-ray: report reviewed, image reviewed Assessment and Plan (1) Acute blood loss anemia Current Visit: Yes Status: Acute Code(s): D62 - ACUTE POSTHEMORRHAGIC ANEMIA SNOMED Code(s): 777592407 (2) CAD (coronary artery disease) Current Visit: Yes Status: Chronic Code(s): I25.10 - ATHSCL HEART DISEASE OF [place] CORONARY ARTERY W/O ANG PCTRS SNOMED Code(s): 10098735 (3) Hyperlipidemia Current Visit: Yes Status: Chronic Code(s): E78.5 - HYPERLIPIDEMIA, UNSPECIFIED SNOMED Code(s): 77844375 (4) Hypertension Current Visit: Yes Status: Chronic Code(s): I10 - ESSENTIAL (PRIMARY) HYPERTENSION SNOMED Code(s): 95967086 (5) Severe mitral regurgitation Current Visit: Yes Status: Chronic Code(s): I34.0 - NONRHEUMATIC MITRAL ( VALVE) INSUFFICIENCY SNOMED Code(s): 62616771 (6) Stenosis of left subclavian artery Current Visit: Yes Status: Chronic Code(s): I77.1 - STRICTURE OF ARTERY SNOMED Code(s): 46622489594684728 (7) Paroxysmal atrial fibrillation Current Visit: No Status: Resolved Code(s): I48.0 - PAROXYSMAL ATRIAL FIBRILLATION SNOMED Code(s): 140338548 (8) History of GI bleed Current Visit: No Status: Resolved Code(s): Z87.19 - PERSONAL HISTORY OF OTHER DISEASES OF THE DIGESTIVE SYSTEM SNOMED Code(s): 003112010 (9) Family history of coronary artery disease Current Visit: Yes Status: Chronic Code(s): Z82.49 - FAMILY HX OF ISCHEM HEART DIS AND OTH DIS OF THE CIRC SYS SNOMED Code(s): 710269474 Plan: 1. Continue baby aspirin, statin, beta krunal. 2. Continue amiodarone for atrial fibrillation prophylaxis. No further IV amiodarone. 3. Ventilator management per pulmonology. Wean as tolerated. 4. Sternal incision cultured, consistent with Serratia. Continue meropenem per Dr. Olivera. Dr. Krause to perform flap sternal closure Wednesday. Sputum culture, bronchial washings positive for Rachana, continue Diflucan. Will change wound VAC today. 5. Will monitor labs, chest x-rays. 6. Bronchodilators per pulmonology. 7. Will hold off on Coumadin for now as patient is preparing for repeat surgery next week. No IV heparin. 8. GI/DVT prophylaxis. 9. Increase activity once extubated. PT/OT/cardiac rehab following. 10. Continue tube feedings for maximum nutrition. 11. Keep Mason for strict accurate intake and output. 12. Keep left pleural chest tube for now to continuous wall suction. 13. More recommendations as patient progresses. Time with Patient: Greater than 30
[2017-12-19] MEDS: PANTOPRAZOLE 40 MG TABLET PO SCH (09:23)
[2017-12-19] MEDS: AMIODARONE 200 MG TAB PO SCH ×2 (09:24→20:36)
[2017-12-19] MEDS: ASPIRIN 81 MG PO SCH (09:24)
[2017-12-19] MEDS: LACTOBACILLUS ACIDOPH & BULGAR 1 EACH PACKET PO SCH ×3 (09:25→20:36)
[2017-12-19] MEDS: CHLORHEXIDINE GLUCONATE 15 ML CUP MUCOUS MEM SCH ×2 (09:25→20:36)
[2017-12-19] MEDS: ATORVASTATIN 40 MG TAB PO SCH (09:25)
[2017-12-19] MEDS: METOPROLOL TARTRATE 50 MG TAB PO SCH ×2 (09:25→20:36)
[2017-12-19] MEDS: BUDESONIDE 1 MG/2 ML NEBU INHALATION SCH ×2 (09:28→19:20)
[2017-12-19] MEDS: IPRATROPIUM-ALBUTEROL 3 ML NEB INHALATION SCH ×4 (09:28→19:20)
[2017-12-19] MEDS: FLUCONAZOLE IN NACL,ISO-OSM 200 MG in SALINE 1 100ML.BAG IVPB SCH (09:48)
[2017-12-19] MEDS ORDERED: ALBUMIN HUMAN 25% 50 ML in EMPTY BAG 1 BAG IVPB ONE (10:35)
[2017-12-19] MEDS ORDERED: FUROSEMIDE 10 MG/ML 4 ML VIAL IV STA (10:35)
[2017-12-19 12:17] LABS: Glucose,Whole Blood 98 mg/dL (75-99)
[2017-12-19] MEDS: SODIUM CHLORIDE 0.9% 1,000 ML IV SCH (12:25)
[2017-12-19] MEDS: VANCOMYCIN 1,500 MG in SODIUM CHLORIDE 0.9% 250 ML IVPB SCH (13:50)
--- NOTE | 2017-12-19 14:11 | PN ---
PROGRESS NOTE DATE OF SERVICE: 12/19/2017. HISTORY: The patient remains intubated and on vent, remains in sinus rhythm. The patient had bypass surgery, had chronic atrial fibrillation and underwent mitral valve replacement, developed sternal wound dehiscence and is awaiting surgery at the moment. At the time of my evaluation this morning, she is intubated, sedated on vent. PHYSICAL EXAMINATION: Vital signs are stable. Chest exam reveals diminished air entry at the bases. Heart exam reveals first and second heart sounds. No gallop. Extremities reveal mild edema. Peripheral pulses are felt. LABS: Hemoglobin of 7.3, potassium is 3.8, creatinine is 0.56. ASSESSMENT: 1. Coronary artery disease status post coronary artery bypass grafting. 2. Mitral regurgitation status post mitral valve replacement. 3. Sternal wound dehiscence. 4. Chronic atrial fibrillation. PLAN: The patient will continue the amiodarone, Lipitor, metoprolol. Anticoagulation for atrial fibrillation is currently on hold as per cardiothoracic surgeon. MMODL / IJN: [id number] /
--- NOTE | 2017-12-19 15:59 | P.PN ---
Subjective Progress Note Date: 12/19/17 Principal diagnosis: Status post mitral valve replacement with maze procedure postoperative day # 23 On 12/11/2017 I'm seeing this patient for a follow-up. The patient is this morning, comfortable in the BiPAP. She is using the BiPAP on and off during the day. She was taken to the operating room where his surgical wound was debrided and the sternum was debrided and the wound VAC was applied. There is a positive gram-negative infection with Serratia and the patient is currently on IV Merrem. Also, left-sided chest tube was inserted. The chest tube drained approximately 130 mL of fluid for yesterday since it was placed and another 60 mL for today. The patient's pleural wound VAC has drained approximately 550 mL for yesterday and another 100 mL for today. The patient is afebrile. The patient is hemodynamically stable. The patient went into atrial fibrillation and this morning she converted into sinus and she is back and forth between flutter and sinus rhythm. She is on no pressors. Her INR is at 1.8. No anticoagulation will be offered today. Lasix surgery consultation was obtained for a future muscle flap. Hemoglobin is at 7.7. White cell count is at 16.3. The function is stable with a creatinine of 0.8. She is using incentive spirometer. She has no other complaints otherwise for now. On 12/12/2017, the patient is still doing well. The patient is sitting up in her bed and she is on a BiPAP at a pressure of 14/5 cm of water with an FiO2 of 50%. Her chest x-ray is quite stable and the patient has still a persistent consolidation/opacity in the left lung base. I have scanned the patient earlier this week and the findings the left lung bases consistent with some posterior pericardial effusion, atelectasis and small effusions. For that reason a chest tube was inserted and the total amount of output from the chest tube was 300 mL and since then the output has dropped considerably. The wound VAC is in place and the total amount of output over the past 12 hours as been around 250 mL. The wound cultures are showing gram-negative, the previous fluid drainage was positive for Serratia and the patient is currently on IV Merrem. White cell count is up to 19 and this is something to monitor knowing that her white cell count from yesterday was 16.3. Renal function is stable. She is producing adequate amount of urine output. Abdomen today is at 8.1. She is weak. She is taking approximately 20% of her diet and she is drinking a sure. Her cardiac rhythm is a flutter with 2 to one block and since this morning the patient became progressively more tachycardic. She received an additional amiodarone dose yesterday without much benefit. She is on beta blockers on metoprolol at a dose of 50 mg by mouth twice a day. She became slightly hypotensive yesterday and she was supposed to get albumin which was not given as the patient's blood pressure subsequently improved. She is off anticoagulation awaiting a sternal flap and the patient's INR today is at 1.7. Patient was reevaluated today on 12/13/2017, remains with very marginal pulmonary status, remains on BiPAP, FiO2 of 50%, IPAP of 14 and EPAP of 5. Chest x-ray seems to be worsening, CT of the chest is also worsening there is also a near-complete collapse of the left lung, only a small portion of the upper lobe remains aerated. Small pleural effusions noted, and what is worsening is the fact that she has an enlarging moderate to large pericardial effusion measuring 2.7 cm in thickness. This is along the left heart margin but increasing along the right heart margin measuring now 1.7 cm compared to 1 cm previously. Considering the findings, I felt strongly that the patient may benefit from bronchoscopy and left lung evaluation, however with the finding of increasing pericardial effusion, may have to be seen by thoracic surgery and consider a pericardial window. Her labs were reviewed, WBC count is 24.6 hemoglobin is 8.6 and her INR is 1.8. Patient is noted to be a bit dyspneic on BiPAP at 50%. Patient was reevaluated today on 12/14/2017, remains on BiPAP, patient is afraid to get off BiPAP. Same settings including IPAP of 14 and EPAP of 5, and she is on 50% FiO2. No evidence of leak, her tidal volume is anywhere between 450-500 , and her rate is about 18. Chest x-ray today showed slight improvement in the left lung collapse, however continues to have significant collapse of the left lower lobe. No bronchoscopy was done yesterday mostly because of the abnormal finding regarding her pericardial effusion, and we were not certain whether the patient will need a pericardial window at the time. The surgeons felt no need for pericardial window, patient was scheduled for bronchoscopy early this morning, but her INR is elevated, hence we recommended 2 units of fresh frozen plasma, and I still plan to do the bronchoscopy this afternoon. Family was made aware of the reasons for delay, but hopefully we can get it done sometime this afternoon. Labs were reviewed, her WBC count is 17.1 hemoglobin is 10.2 her INR was 2.1 earlier today. Rest of the labs were reviewed. Hemodynamically the patient is stable, intermittently she may have episodes of atrial flutter without hemodynamic instability. Reevaluated today on 12/15/2017, patient's condition worsened late p.m. yesterday , she was in atrial flutter, developed worsening shortness of breath, and did not improve with diuretics, BiPAP, and given multiple meds to control her atrial flutter including amiodarone, and she was given beta blockers. Patient continued to show worsening dyspnea, and she was intubated placed on mechanical ventilation. Immediate chest x-ray post intubation showed adequate expansion of the left lower lobe, however follow-up chest x-ray today showed left lower lobe collapse. I performed bronchoscopy on the patient today, she was given earlier 2 more units of fresh frozen plasma, and I proceeded to bronchoscopy and BAL of the left lower lobe. Indeed there was a mucous plug in the left lower lobe bronchus, this was suctioned, and lavage of the whole left lower lobe was done. Fluid was sent for different diagnostic studies, please refer to the full operative report. Vent settings were reviewed, patient is now on assist control rate of 18, 45% FiO2, and tidal volume of 500 PEEP is at 5. ABG showed a pO2 of 123 pCO2 of 43 pH of 7.50 antibiotics mcguire, patient is now on Merrem and vancomycin. Reevaluated today on 12/16/2017, patient remains on mechanical ventilation, same vent settings as noted above, however her FiO2 is down to 40%, PEEP remains at 5 , tidal volume is 500 and assist control rate of 18. ABG is excellent. Patient remains on antibiotics in the form of Merrem and vancomycin. Her wound VAC was addressed today by Dr. richi harrison on the case, and the sternal wound was cleaned and one VAC placed again. Awaiting final myocutaneous flap by plastic surgery. In the meantime I believe the patient will be extremely difficult to wean and extubate successfully, we'll try to find out as when her surgery is scheduled for her sternum. Onset the sternum is stabilized, it will be much easier to perform successful weaning and extubation. Otherwise the patient will have to be extubated again to a BiPAP, and she would likely continue to collapse her lower lobes. Today the patient received a unit of packed RBCs for low hemoglobin. Patient was reevaluated today on 12/17/2017, remains on mechanical ventilation, ventilator settings are tidal volume of 500 assist control rate of 18 FiO2 of 40 % and PEEP of 5. ABG showed a pO2 of 134 pCO2 of 41 pH of 7.48. WBC count is 17.8 hemoglobin is 8.1 INR is 1.5. Chest x-ray is showing overall improvement especially in the left lower lobe compared to previous x-rays. Better aeration of the left lower lobe is noted. Small bilateral pleural effusions noted. Left -sided chest tube remains in place. Minimal atelectasis noted in the left lower lobe, but again it is improved compared to previous x-rays. Basic metabolic profile is normal renal profile is normal. Patient is hemodynamically stable, off norepinephrine. Continues to have a wound VAC in place, and remains on the same antibiotics as per infectious disease. Reevaluated today on 12/18/2017, remains on mechanical ventilations, same ventilator settings as noted above. ABG showed a pO2 of 115 pCO2 of 46 pH of 7.46. CBC showed leukocytosis with WBC count of 16.9 hemoglobin is 8.1. Basic metabolic profile is normal. Renal profile showed a BUN of 42 creatinine of 0.60. Chest x-ray showed mild congestive changes, small left pleural effusion and atelectasis is noted. All meds were reviewed, patient is hemodynamically stable, not requiring any pressors. All the cultures were reviewed, and the only significant culture is the chest wall cultures showing Serratia marcescens back from 12/10/2017. That BAL cultures were negative except for some Rachana, felt to be contamination from oral mucosa. Reevaluated today on 12/19/2017, remains on mechanical ventilation, her ventilator settings are assist control rate of 14 tidal volume of 500 FiO2 40% and PEEP of 5. Patient was examined earlier and she was sedated, however her nurse was instructed to hold sedation, and eventually give her another pressure support of 12 and CPAP trial. Yesterday she had 2 of these trials and she did quite well. However I'm still a bit reluctant to extubate the patient because I am certain that she will end up on BiPAP, and considering her sternal instability, patient will likely fail full extubation. Surgery is likely to be done on Wednesday. Labs were reviewed relatively normal CBC except for hemoglobin of 7.3 basic metabolic profile is normal renal profile is normal. Chest x-ray is basically about the same, heart is enlarged, minimal left basilar atelectasis and small pleural effusion is noted. Patient is still on enteral feeding. And tolerated quite well. Objective - Vital Signs Vital signs: Vital Signs Temp 98.2 F 12/19/17 04:00 Pulse 77 12/19/17 13:00 Resp 32 H 12/19/17 13:00 BP 116/54 12/19/17 10:00 Pulse Ox 96 12/19/17 13:00 Intake & Output 12/18/17 12/19/17 12/19/17 18:59 06:59 18:59 Intake Total 863 776.538 421 Output Total 1245 480 340 Balance -382 296.538 81 Weight 111.7 kg 111.7 kg Intake: IV 253 276 141 Pressure Bag 33 36 21 Sodium Chloride 0.9% 1, 220 240 120 000 ml @ 20 mls/hr IV . Q24H [facility] Rx#:[id number] Intake, IV Titration 150 180.538 Amount Albumin Human 25% 50 ml 50 In Empty Bag 1 bag @ 100 mls/hr IVPB ONCE ONE Rx#: [id number] Fluconazole in NaCl,Iso- 100 Osm 200 mg In Saline 1 100ml.bag @ 100 mls/hr IVPB DAILY [facility] Rx#: [id number] Propofol 1,000 mg In 180.538 Empty Bag 1 bag @ Titrate IV .Q0M [facility] Rx#: [id number] Tube Feeding 400 320 280 Other 60 Output: Urine 1245 480 340 Other: Voiding Method Indwelling Catheter Indwelling Catheter ABP, PAP, CO, CI - Last Documented Arterial Blood Pressure 121/52 Pulmonary Artery Pressure 38/33 Cardiac Output 5.8 Cardiac Index 2.9 - Exam - Constitutional General appearance: Physical exam revealed a 67-year-old, female, intubated, presently on propofol, fully sedated. - EENT ENT: Moist mucous membranes, no neck masses, endotracheal tube is intact. - Neck Details: No neck masses, no JVD, throat is clear, no stridor. - Respiratory Details: diminished breath sounds at the bases, airflow to both lungs is symmetrical. Left pleural chest tube remains intact evacuating thin serosanguineous drainage. No air leak present. Chest tube remains to low continuous wall suction -20 cm H2O. sternal wound VAC is noted. - Cardiovascular Details: Irregular rhythm , normal S1 and S2 present, negative for S3, gallop or murmur. Sternal wound with wound VAC in place, - Gastrointestinal Gastrointestinal Comment(s): Obese, soft, nontender, no megaly, no rebound, no guarding, positive bowel sounds.- Genitourinary Genitourinary Comment(s): Mason catheter remains in place with good urine output - Integumentary Integumentary Comment(s): Skin is relatively unremarkable.. Wound VAC in place to sternal wound. Positive serosanguineous drainage. Stage II wound to her coccyx with local with wound care treatment. No clubbing or cyanosis. - Neurologic Neurologic: Cannot be assessed today, presently on propofol. - Musculoskeletal Musculoskeletal: Relatively unremarkable. - Psychiatric Psychiatric: Cannot be assessed fully sedated today, however I plan to discontinue propofol and reassess. - Labs CBC & Chem 7: 12/19/17 05:50 12/19/17 05:50 Labs: Abnormal Lab Results - Last 24 Hours (Table) 12/19/17 12/19/17 12/19/17 Range/Units 05:50 05:50 06:54 WBC 13.7 H (3.8-10.6) k/uL RBC 2.78 L (3.80-5.40) m/uL Hgb 7.3 L (11.4-16.0) gm/dL Hct 24.2 L (34.0-46.0) % MCHC 30.2 L (31.0-37.0) g/dL RDW 20.0 H (11.5-15.5) % Plt Count 147 L (150-450) k/uL Neutrophils # 12.4 H (1.3-7.7) k/uL Lymphocytes # 0.7 L (1.0-4.8) k/uL Carbon Dioxide 34 H (22-30) mmol/L BUN 43 H (7-17) mg/dL POC Glucose (mg/dL) 104 H (75-99) mg/dL Calcium 7.9 L (8.4-10.2) mg/dL AST 67 H (14-36) U/L Alkaline Phosphatase 132 H (38-126) U/L Total Protein 5.2 L (6.3-8.2) g/dL Albumin 2.2 L (3.5-5.0) g/dL Assessment and Plan Assessment: 1. Severe mitral valve regurgitation, status post mitral valve replacement, with Maze procedure, left atrial appendage exclusion, and one-vessel bypass, postop day # 23 2 sternal wound dehiscence/infection with gram-negative infection and the patient has Serratia currently on Merrem. The patient underwent debridement and the wound VAC is applied. She will ultimately need a flap and plastic surgery this is yet to be decided, most likely it would happen early next week either Wednesday or Wednesday according to the surgeons. 3 left basilar atelectasis/and left lower lobe collapse, status post bronchoscopy and lavage of the left lower lobe on 12/15/2017. Cultures were nondiagnostic and thus not surprising considering the patient was already on broad-spectrum antibiotics coverage. 4 acute respiratory failure, hypoxic requiring reintubation and mechanical ventilation. 5. acute urinary tract infection, urine culture positive for E. coli and Serratia marcescens, on meropenem 6. Anemia, multifactorial in the patient's hemoglobin is 7.3 7 paroxysmal atrial flutter with rapid ventricular response currently on beta blockers and oral amiodarone, anticoagulation therapy is presently on hold because of bleeding from the wound VAC was noted. Presently heparin and Coumadin are both on hold. 8 left subclavian stenosis 9 leukocytosis 10 obesity 11 previous history of GI bleed 12 pressure ulceration in the back and buttocks, stage III Recommendation: Continue present supportive care measures, continue mechanical ventilation, continue nutritional support, hemodynamic support, continue intermittent trials on pressure support and CPAP, and intermittently switching to assist control mode for the next couple of days. Hoping we could have the surgery on the sternum done early next week, and the patient will be ready for extubation. Remains critically ill, discussed her condition again with the daughter at bedside, critical care time is 35 minutes. Time with Patient: Greater than 30
--- NOTE | 2017-12-19 19:08 | PN ---
PROGRESS NOTE DATE OF SERVICE: 12/19/2017 This 67-year-old woman was admitted after CAD, CABG, mitral valve replacement, is being closely monitored. The patient is mechanically ventilated. The wound VAC has been removed after sternal debridement. Serratia marcescens grown from the cultures and Plastic surgery is being planned next week. The patient is on meropenem. Flap sternal closure was being planned on Wednesday. No chest pain. The patient is on mechanical ventilation. PHYSICAL EXAMINATION: On exam, mechanically ventilated and sedated. Pulse 77, blood pressure 120/52, respiration 32, temperature normal, pulse ox 96% on mechanical ventilation. Vent settings noted. HEENT: Conjunctivae normal. NECK: No jugular venous distention. CARDIOVASCULAR: S1, S2. RESPIRATORY: Breath sounds diminished in the bases. A few scattered rhonchi. ABDOMEN: Soft. NERVOUS SYSTEM: The patient is mechanically ventilated and sedated. LABS: WBC 13.2, hemoglobin 7.3, albumin is 2.2. ASSESSMENT: 1. Status post coronary artery disease, CABG, mitral valve replacement. 2. Acute hypoxic respiratory failure, intubation on mechanical ventilation. 3. Status post sternal would debridement. Cultures showing Serratia marcescens and on wound VAC replaced. 4. Acute blood loss anemia with massive blood transfusion previously. 5. History of gastrointestinal bleed previously. 6. Hypertension. 7. Left subclavian stenosis. 8. Paroxysmal atrial fibrillation with flutter, status post cardioversion. 9. Obesity with body mass index of 41.6. 10.Status post PICC line placement. 11.Urinary tract infection Serratia marcescens and E coli. 12.Bilateral pleural effusion, improved with diuresis. 13.Pressure ulceration in the back and gluteal region, stage III. 14.Status post bronchoscopy the left lower lobe, possible mucus plugs removed with Rachana grown from the cultures, on antifungal medications. RECOMMENDATIONS AND DISCUSSION: I recommend to continue current management, continue symptomatic treatment. Continue the antibiotics and antifungal medications. Otherwise closely monitor. Prognosis guarded. Further recommendations to follow. See orders. MMODL / IJN: [id number] /
[2017-12-19] MEDS: ESCITALOPRAM 10 MG TAB PO SCH (20:36)
[2017-12-19] MEDS: SENNOSIDES-DOCUSATE SODIUM 1 EACH TAB PO SCH (20:36)
[2017-12-19 23:50] LABS: Glucose,Whole Blood 97 mg/dL (75-99)
[2017-12-20] MEDS: PROPOFOL 1,000 MG in EMPTY BAG 1 BAG IV SCH ×2 (04:44→16:04)
[2017-12-20 05:04] LABS: Anisocytosis Slight; Basophils % (A) 0 %; Eosinophils # (A) 0.1 k/uL (0-0.7); Eosinophils % (A) 1 %; HCT 23.6 % (34.0-46.0); HGB 7.5 gm/dL (11.4-16.0); Hypochromasia Marked; Lymphocytes # (A) 0.7 k/uL (1.0-4.8); Lymphocytes % (A) 5 %; MCH 27.4 pg (25.0-35.0); MCHC 31.6 g/dL (31.0-37.0); MCV 86.6 fL (80.0-100.0); Mean Platelet Volume 7.7; Monocytes # (A) 0.5 k/uL (0-1.0); Monocytes % (A) 3 %; Neutrophils % (A) 90 %; Platelet Count 151 k/uL (150-450); Poikilocytosis Moderate; RBC 2.73 m/uL (3.80-5.40); RDW 19.3 % (11.5-15.5); WBC 14.4 k/uL (3.8-10.6)
[2017-12-20 05:16] LABS: ALT 35 U/L (9-52); AST 66 U/L (14-36); Albumin 2.2 g/dL (3.5-5.0); Alkaline Phosphatase 127 U/L (38-126); Anion Gap 6 mmol/L; Blood Urea Nitrogen 42 mg/dL (7-17); Calcium 8.2 mg/dL (8.4-10.2); Carbon Dioxide 34 mmol/L (22-30); Chloride 101 mmol/L (98-107); Glucose 90 mg/dL (74-99); Magnesium 2.2 mg/dL (1.6-2.3); Potassium 3.6 mmol/L (3.5-5.1); Sodium 141 mmol/L (137-145); Total Bilirubin 0.5 mg/dL (0.2-1.3); Total Protein 5.1 g/dL (6.3-8.2)
[2017-12-20] MEDS ORDERED: POTASSIUM CHLORIDE ER 20 MEQ TAB.ER PO SCH (06:00)
[2017-12-20] MEDS: INSULIN ASPART 100 UNIT/ML 1 ML 10 ML VIAL SQ SCH ×3 (06:36→19:59)
[2017-12-20 06:37] LABS: Glucose,Whole Blood 105 mg/dL (75-99)
[2017-12-20 08:03] LABS: ABG Base Excess 9.2 mmol/L; ABG HCO3 33 mmol/L (21-25); ABG Oxygen Saturation 99.2 % (94-97); ABG PCO2 45 mmHg (35-45); ABG PH 7.47 (7.35-7.45); ABG PO2 108 mmHg (83-108); ABG TCO2 34 mmol/L (19-24)
[2017-12-20] MEDS: IPRATROPIUM-ALBUTEROL 3 ML NEB INHALATION SCH ×4 (08:06→20:46)
[2017-12-20] MEDS: BUDESONIDE 1 MG/2 ML NEBU INHALATION SCH ×2 (08:06→20:46)
--- NOTE | 2017-12-20 08:12 | XR ---
EXAMINATION TYPE: XR chest 1V portable DATE OF EXAM: 12/20/2017 COMPARISON: Prior chest x-ray 12/19/2017 HISTORY: Intubated TECHNIQUE: Single frontal view of the chest is obtained. FINDINGS: Endotracheal tube, NG tube, left chest tube, left-sided PICC line, subclavian stent are ag ain noted and are stable. No evident pneumothorax. Interstitium and central vascularity are prominent . Retrocardiac density is present obscuring the left hemidiaphragm. Patient is status post cardiac va lve replacement and the heart remains enlarged. IMPRESSION: Correlate for congestive heart failure. There may be left lower lobe atelectasis versus edema, effusion, correlate, follow-up recommended.
--- NOTE | 2017-12-20 08:22 | PCN ---
PROCEDURE NOTE DATE OF PROCEDURE: 12/19/2017. PREOPERATIVE DIAGNOSIS: Open sternal wound. POSTOPERATIVE DIAGNOSE: Open sternal wound. PROCEDURE: Exchange of sternal wound VAC sponge. SURGEON: Dion Back MD. EARLY BREASTFEEDING CARE SPECIALIST: Parris Dawkins NP ANESTHESIA: None. ESTIMATED BLOOD LOSS: None. COMPLICATIONS: None. INDICATION: The patient is a 67-year-old female who underwent mitral valve replacement along with coronary artery bypass surgery several weeks ago. She was in need of sternal debridement, which left her with an open sternal wound. This has been treated with a VAC sponge and will be eventually closed using muscle flaps as directed by Plastic Surgery. Wound VAC change was recommended. PROCEDURE IN DETAIL: In the ICU, the patient's chest was prepped and draped in a sterile fashion. The previously placed wound VAC sponge was removed without difficulty. The underlying tissue was healthy without evidence of infection. There was no purulent drainage. There was no excessive fluid collection. There was granulation tissue noted throughout the wound. There was no foul odor. For additional pieces of white sponge were placed into the wound and covered with Tegaderm. Suction was applied. There was good suction noted. There was a good seal and no leak evident. The patient appeared to tolerate the procedure well. There was no immediate complication. She is scheduled to undergo muscle flap closure of this wound by Plastic Surgery in 2 days. MMODL / IJN: [id number] /
[2017-12-20] MEDS: ASPIRIN 81 MG PO SCH (08:55)
[2017-12-20] MEDS: LACTOBACILLUS ACIDOPH & BULGAR 1 EACH PACKET PO SCH ×2 (08:55→19:57)
[2017-12-20] MEDS: AMIODARONE 200 MG TAB PO SCH ×2 (08:55→21:13)
[2017-12-20] MEDS: PANTOPRAZOLE 40 MG TABLET PO SCH (08:55)
[2017-12-20] MEDS: ATORVASTATIN 40 MG TAB PO SCH (08:55)
[2017-12-20] MEDS: CHLORHEXIDINE GLUCONATE 15 ML CUP MUCOUS MEM SCH ×2 (08:55→21:13)
[2017-12-20] MEDS: METOPROLOL TARTRATE 50 MG TAB PO SCH ×2 (08:56→21:13)
[2017-12-20] MEDS: FLUCONAZOLE IN NACL,ISO-OSM 200 MG in SALINE 1 100ML.BAG IVPB SCH (09:04)
[2017-12-20] MEDS: MEROPENEM 1 GM in SODIUM CHLORIDE 0.9% 100 ML IVPB SCH ×2 (09:04→19:58)
--- NOTE | 2017-12-20 11:33 | P.PN ---
Subjective Progress Note Date: 12/20/17 Principal diagnosis: Severe mitral regurgitation. Coronary artery disease. Paroxysmal atrial fibrillation on Coumadin for anticoagulation. Recent hospitalization for lower GI bleed, duodenal ulcer. History of left subclavian stenosis with stent placement 2014 with recent discovery of critical re-in-stent stenosis. Previous tobacco dependence with preoperative FEV1 60% of predicted. Hypertension. Hyperlipidemia. Gallbladder disease. Family history of heart disease. Preoperative nasal swab positive for MRSA. Preoperative anemia. POD #25 mitral valve replacement using a 25 mm Ribera bioprosthetic tissue valve. Coronary artery bypass grafting 1, reverse saphenous vein graft to the obtuse marginal artery. Maze procedure. Endoscopic harvesting of the right greater saphenous vein. Epi-aortic ultrasound. Intraoperative transesophageal echocardiogram. Ligation of the left atrial appendage using a 40 mm AtriClip. Intraoperative left ventricular wall tear, an unexpected but potential outcome of surgery Acute blood loss anemia, and expected outcome given patient's preoperative anemia and intraoperative bleeding. Postoperative prolonged mechanical ventilation secondary to hemodynamic instability, and unexpected but potential outcome of surgery given the extensive nature of her perioperative course Sternal incision dehiscence, a possible outcome of surgery given patient's obesity, nutrition status, debility POD #10 sternal wound debridement with placement of wound VAC. Postoperative left lower lobe collapse secondary to mucous plugging, and unexpected but potential outcome of surgery. Bronchial washings positive for Rachana species. POD #5 bronchoscopy and bronchoalveolar lavage of the left lower lobe and extraction of mucous plug Patient's currently lying in bed in no acute distress on mechanical ventilation. Was allowed weaning trial all day yesterday. She did go back into rapid atrial flutter last night. Wound VAC was changed yesterday. Objective - Vital Signs Vital signs: Vital Signs Temp 98.6 F 12/20/17 04:00 Pulse 116 H 12/20/17 08:30 Resp 14 12/20/17 07:00 BP 116/54 12/19/17 10:00 Pulse Ox 99 12/20/17 07:00 Intake & Output 12/19/17 12/20/17 12/20/17 18:59 06:59 18:59 Intake Total 916 969.59 Output Total 1190 530 Balance -274 439.59 Weight 111.7 kg 113.2 kg Intake: IV 256 276 Pressure Bag 36 36 Sodium Chloride 0.9% 1, 220 240 000 ml @ 20 mls/hr IV . Q24H CARLEE Rx#:[id number] Intake, IV Titration 100 93.59 Amount Propofol 1,000 mg In 100 93.59 Empty Bag 1 bag @ Titrate IV .Q0M CARLEE Rx#: [id number] Tube Feeding 560 600 Output: Urine 1190 530 Other: Voiding Method Indwelling Catheter Indwelling Catheter ABP, PAP, CO, CI - Last Documented Arterial Blood Pressure 105/50 Pulmonary Artery Pressure 38/33 Cardiac Output 5.8 Cardiac Index 2.9 - Constitutional General appearance: Present: no acute distress, obese - Respiratory Details: Lungs sounds diminished bilaterally. Respirations even, nonlabored. Currently on mechanical ventilation. Ventilator settings assist control mode, FiO2 40%, tidal volume 500, respiratory rate 14, PEEP 5. ABGs this morning 7.47/45/108/33 /9.2/99% on 40% FiO2. Left pleural chest tube to continuous wall suction, no drainage in the last 24 hours, no air leak present. - Cardiovascular Details: S1, S2 present. Irregular, tachycardia rate and rhythm, rapid A. fib flutter on telemetry. Sternum open with wound VAC in place. Palpable peripheral pulses bilaterally. Generalized edema present. Right brachial arterial line, left brachial PICC line present. Mammary support, antiembolism stockings, SCDs present. - Gastrointestinal Gastrointestinal Comment(s): Abdomen soft, nontender, nondistended. Active bowel sounds 4 quadrants. Tolerating tube feedings at 40 mL/h through OG tube. - Genitourinary Genitourinary Comment(s): Mason present draining clear, yellow urine. Output 30-60 mL/h overnight. - Integumentary Integumentary Comment(s): Skin is warm and dry. Open chest with wound VAC in place. Sacral ulcer with local wound care present. - Neurologic Neurologic Comment(s): Does open eyes and follows commands while on propofol for sedation. - Musculoskeletal Musculoskeletal: Present: generalized weakness - Allied health notes Allied health notes reviewed: nursing - Labs CBC & Chem 7: 12/20/17 04:53 12/20/17 04:53 Labs: Abnormal Lab Results - Last 24 Hours (Table) 12/20/17 12/20/17 12/20/17 Range/Units 04:53 04:53 06:35 WBC 14.4 H (3.8-10.6) k/uL RBC 2.73 L (3.80-5.40) m/uL Hgb 7.5 L (11.4-16.0) gm/dL Hct 23.6 L (34.0-46.0) % RDW 19.3 H (11.5-15.5) % Neutrophils # 13.0 H (1.3-7.7) k/uL Lymphocytes # 0.7 L (1.0-4.8) k/uL ABG pH (7.35-7.45) ABG HCO3 (21-25) mmol/L ABG Total CO2 (19-24) mmol/L ABG O2 Saturation (94-97) % Carbon Dioxide 34 H (22-30) mmol/L BUN 42 H (7-17) mg/dL Creatinine 0.50 L (0.52-1.04) mg/dL POC Glucose (mg/dL) 105 H (75-99) mg/dL Calcium 8.2 L (8.4-10.2) mg/dL AST 66 H (14-36) U/L Alkaline Phosphatase 127 H (38-126) U/L Total Protein 5.1 L (6.3-8.2) g/dL Albumin 2.2 L (3.5-5.0) g/dL 12/20/17 Range/Units 07:57 WBC (3.8-10.6) k/uL RBC (3.80-5.40) m/uL Hgb (11.4-16.0) gm/dL Hct (34.0-46.0) % RDW (11.5-15.5) % Neutrophils # (1.3-7.7) k/uL Lymphocytes # (1.0-4.8) k/uL ABG pH 7.47 H (7.35-7.45) ABG HCO3 33 H (21-25) mmol/L ABG Total CO2 34 H (19-24) mmol/L ABG O2 Saturation 99.2 H (94-97) % Carbon Dioxide (22-30) mmol/L BUN (7-17) mg/dL Creatinine (0.52-1.04) mg/dL POC Glucose (mg/dL) (75-99) mg/dL Calcium (8.4-10.2) mg/dL AST (14-36) U/L Alkaline Phosphatase (38-126) U/L Total Protein (6.3-8.2) g/dL Albumin (3.5-5.0) g/dL - Imaging and Cardiology Chest x-ray: report reviewed, image reviewed Assessment and Plan (1) Acute blood loss anemia Current Visit: Yes Status: Acute Code(s): D62 - ACUTE POSTHEMORRHAGIC ANEMIA SNOMED Code(s): 083727675 (2) CAD (coronary artery disease) Current Visit: Yes Status: Chronic Code(s): I25.10 - ATHSCL HEART DISEASE OF [place] CORONARY ARTERY W/O ANG PCTRS SNOMED Code(s): 83263324 (3) Hyperlipidemia Current Visit: Yes Status: Chronic Code(s): E78.5 - HYPERLIPIDEMIA, UNSPECIFIED SNOMED Code(s): 77208613 (4) Hypertension Current Visit: Yes Status: Chronic Code(s): I10 - ESSENTIAL (PRIMARY) HYPERTENSION SNOMED Code(s): 87029831 (5) Severe mitral regurgitation Current Visit: Yes Status: Chronic Code(s): I34.0 - NONRHEUMATIC MITRAL ( VALVE) INSUFFICIENCY SNOMED Code(s): 64399018 (6) Stenosis of left subclavian artery Current Visit: Yes Status: Chronic Code(s): I77.1 - STRICTURE OF ARTERY SNOMED Code(s): 93504958633299984 (7) Paroxysmal atrial fibrillation Current Visit: No Status: Resolved Code(s): I48.0 - PAROXYSMAL ATRIAL FIBRILLATION SNOMED Code(s): 893752317 (8) History of GI bleed Current Visit: No Status: Resolved Code(s): Z87.19 - PERSONAL HISTORY OF OTHER DISEASES OF THE DIGESTIVE SYSTEM SNOMED Code(s): 790052545 (9) Family history of coronary artery disease Current Visit: Yes Status: Chronic Code(s): Z82.49 - FAMILY HX OF ISCHEM HEART DIS AND OTH DIS OF THE CIRC SYS SNOMED Code(s): 290573553 Plan: 1. Continue baby aspirin, statin, beta krunal. 2. Continue amiodarone for atrial fibrillation prophylaxis. No further IV amiodarone. 3. Ventilator management per pulmonology. Wean as tolerated. 4. Sternal incision cultured, consistent with Serratia. Continue meropenem per Dr. Olivera. Dr. Krause to perform flap sternal closure Wednesday. Sputum culture, bronchial washings positive for Rachana, continue Diflucan. 5. Will monitor labs, chest x-rays. 6. Bronchodilators per pulmonology. 7. Will hold off on Coumadin for now as patient is going to surgery tomorrow. No IV heparin. 8. GI/DVT prophylaxis. 9. Increase activity once extubated. PT/OT/cardiac rehab following. 10. Continue tube feedings for maximum nutrition. Hold after midnight for surgery tomorrow. 11. Keep Mason for strict accurate intake and output. 12. Keep left pleural chest tube for now to continuous wall suction. 13. More recommendations as patient progresses. Time with Patient: Greater than 30
[2017-12-20 12:13] LABS: Glucose,Whole Blood 109 mg/dL (75-99)
--- NOTE | 2017-12-20 12:21 | P.PN ---
Subjective Progress Note Date: 12/20/17 Principal diagnosis: Status post one-vessel bypass grafting and mitral valve replacement Progress note dated 11/29/2017 This is a 67-year-old female status post one-vessel bypass grafting and mitral valve replacement. She apparently had surgery on the . Today is postop day #3. The patient currently remains on the mechanical ventilator. Her vent settings are the assist control mode rate of 1210 of I am is 550 FiO2 50% PEEP of 5. Arterial blood gases show a PaO2 of 135 a PaCO2 of 36 and a pH of 7.47. I'm to make a few changes including bumping the rate up from 12 to 20, and decreasing the tidal volume from 550 down to 400, and dropping the FiO2 from 50- 40%. The patient may not be weaned of old low because she remains on insulin drip at 1 unit per hour, Primacor 0.2 mics per kilogram per minute, norepinephrine at 2 mics per minute, half normal saline at 30 mL an hour and propofol at 25 g kilogram per minute. Chest x-rays consistent with fluid overload but bibasilar infiltrates and small effusions and microbiology is negative. The rest of the labs medications and x-rays are all reviewed. Progress note dated 11/30/2017 This is a 67-year-old female status post one-vessel bypass grafting and mitral valve replacement. She had surgery on the . She is postop day #4. She remains on mechanical ventilator. Yesterday, her chest x-ray showed evidence of fluid overload. She did get some diuretics. Today's chest x-ray still shows evidence of fluid overload although it might be slightly improved. She's currently still on the mechanical ventilator on the assist control mode, rate of 26, tidal volume 400, PEEP of 8, FiO2 40%. The patient's arterial blood gases show a PaO2 of 94 and pH 7.46 in a PaCO2 of 41. The patient will get a daily eruption of sedation and a spontaneous breathing trial. The patient remains on norepinephrine at 3 mcg/m, propofol at 30 mics per kilogram per minute, Primacor 0.2 mics per kilogram per minute, half normal saline IV at 15 mL an hour and vital 1.2 at 60 with a goal of 60 mL an hour. The patient failed her spontaneous breathing trial yesterday very quickly, and afterwards, she became dyssynchronous with the ventilator and I had to bump up the PEEP level to 8 and increase her respiratory rate to 26. We also dropped the tidal volume down to 400. She is much more in synchrony today. Progress note dated 12/01/2017 This is a 67-year-old female who is postop day #5, status post one-vessel bypass grafting and mitral valve replacement. She also has a history of postoperative respiratory failure with failure to wean. She was extubated yesterday though. Chest x-ray has evidence of fluid overload which actually is improved. In addition, the patient had acute blood loss anemia requiring blood transfusion postsurgically, hypertension severe mitral regurgitation left subclavian stenosis paroxysmal atrial fibrillation GI bleed and obesity. Yesterday, post extubation we gave the patient 1 shot of Solu-Medrol 60 mg IV push and also put her on BiPAP at 14/5 and 40%. Chest x-ray does show improvement. Today her hemoglobin is below 7 and she'll receive 1 unit of blood followed by some Lasix IV. In addition, I may add on some IV site Medrol and a smaller dose than normal and also some Pulmicort 1 mg twice a day. Progress note dated 12/02/2017 67-year-old female who is postop day #6 status post single-vessel bypass grafting and mitral valve replacement. The patient has been doing very well the last day and a half to 2 days. She has a history of postoperative respiratory failure and initially, failure to wean. She was extubated 2 days ago. She has had to use of BiPAP on and off since that time. She did receive 1 unit of PRBCs yesterday followed by some Lasix 40 mg IV push. Her chest x- ray my opinion still so-so some fluid overload with a small pool of pleural effusion. Other than that, the patient seemed be doing relatively well. She has a history of hypertension severe mitral regurgitation blood loss anemia following surgery left subclavian stenosis paroxysmal atrial fibrillation GI bleed and obesity. This morning, she'll come off the BiPAP and go back to nasal O2. She prefers a nasal O2 over the BiPAP device. She may have had an episode of aspiration last night. Speech pathology was consulted. In addition , I did check for a DVT in the right upper extremity and the Doppler was negative. Progress note dated 12/03/2017 67-year-old female postop day #7, status post single-vessel bypass grafting and mitral valve replacement. The patient has been doing relatively well although this morning she was a bit more short of breath. Chest x-ray does show some fluid overload. She's been on and off of BiPAP. This morning she was on O2 nasal cannula at 3 L. The cardiothoracic practitioner thought she was a bit more short of breath I went and saw her. I looked at her chest x-ray. We asked her to go back on BiPAP at 14 and 5 and 40% and we also gave her Lasix 60 mg IV push. She seemed be doing a lot better now. She's not receiving any IV fluids. Chest x-ray does show fluid overload. Again the Lasix was given this morning. She was a bit to This morning. Breathing about 25 times a minute. No swapnil distress. In addition, she has a history of hypertension severe mitral regurgitation blood loss anemia following her open heart surgery, left subclavian artery stenosis paroxysmal atrial fibrillation GI bleed and obesity. Progress note dated 12/04/2017 67-year-old female, postop day #8, status post single-vessel bypass grafting and mitral valve replacement. The patient's overall situation is been reasonable. She seemed to do do better while she is on BiPAP therapy. When she is a bit more short of breath, she does poorly when she's not on BiPAP. Chest x-ray shows some fluid overload. She has some cephalization to the upper lobes. In addition, she is either consolidation atelectasis or infiltrates in the lower lobes. In addition, probably has some pleural effusions bilaterally. Currently she is on 7 L high flow. She's not receiving any IV fluids. When she is on BiPAP, she is on settings of 14 and 5 and 40%. She did receive some Lopressor for atrial fibrillation with RVR. Cardiothoracic surgery ask about antibiotics for possible pneumonia. Is not unreasonable to add some antibiotics to her regimen. She may have some pneumonia hiding in the lung spaces bilaterally. She isn't producing any phlegm. There's been no fever or chills. Other than that, she is doing reasonably well. Labs x-rays a medications are all reviewed. Progress note dated 12/20/2017 This is a 67-year-old female here in the hospital since November 25. The patient had a one-vessel bypass on the any mitral valve repair/replacement as well as a modified maze procedure on the . She was initially extubated on November 30 of BiPAP. When I left her last, which was on December 04, she was postop day #8 status post bypass grafting and mitral valve replacement. She seemed to do pretty well at that time on BiPAP therapy. Since that time, she's had a cardioversion on December 07 a dehiscence of her sternal wound on December 08 and a sister neck to me on December 10. She currently remains intubated. She has been on PSV 10 CPAP and yesterday she spent 10-12 hours on the settings. She apparently is going for a flap repair on December 21 which is tomorrow. She's getting saline IV at KVO and vital high protein at 40. Her vent settings include the assist control mode rate of 14 tidal volume 500 FiO2 40% PEEP of 5. Arterial blood gases show a PaO2 of 108 a PaCO2 of 45 and a pH of 7.47. I'm inclined not to wean her today given the fact that she'll be going for a flap repair tomorrow. In addition, her respiratory rates a bit high in her heart rate is high. We will go do a daily interruption of sedation and attempt a spontaneous breathing trial. Objective - Vital Signs Vital signs: Vital Signs Temp 98.6 F 12/20/17 04:00 Pulse 75 12/20/17 11:42 Resp 14 12/20/17 11:00 BP 116/54 12/19/17 10:00 Pulse Ox 99 12/20/17 11:00 Intake & Output 12/19/17 12/20/17 12/20/17 18:59 06:59 18:59 Intake Total 916 969.59 495 Output Total 1190 530 240 Balance -274 439.59 255 Weight 111.7 kg 113.2 kg 113.2 kg Intake: IV 256 276 115 Pressure Bag 36 36 15 Sodium Chloride 0.9% 1, 220 240 100 000 ml @ 20 mls/hr IV . Q24H [facility] Rx#:[id number] Intake, IV Titration 100 93.59 100 Amount Fluconazole in NaCl,Iso- 100 Osm 200 mg In Saline 1 100ml.bag @ 100 mls/hr IVPB DAILY [facility] Rx#: [id number] Propofol 1,000 mg In 100 93.59 Empty Bag 1 bag @ Titrate IV .Q0M [facility] Rx#: [id number] Tube Feeding 560 600 280 Output: Urine 1190 530 240 Other: Voiding Method Indwelling Catheter Indwelling Catheter Indwelling Catheter ABP, PAP, CO, CI - Last Documented Arterial Blood Pressure 114/60 Pulmonary Artery Pressure 38/33 Cardiac Output 5.8 Cardiac Index 2.9 - Exam No acute distress, The patient's currently intubated and on the ventilator. So far today, has not had any PSV or CPAP. HEENT examination is grossly unremarkable. Mucous membranes are moist. No oral lesions. Neck supple. Full range of motion. No adenopathy thyromegaly or neck vein distention. Cardiovascular examination reveals regular rhythm rate. S1-S2 normal. No S3 or S4. No discernible murmur noted. Lungs reveal very coarse bilateral breath sounds. Her sounds are equal bilaterally. No wheezes. A few scattered crackles. Abdomen soft bowel sounds are heard. No masses or tenderness. Extremities are intact. No cyanosis or clubbing. There is slight edema. Skin is without rash or lesion. Neurologic examination is difficult to assess - Labs CBC & Chem 7: 12/20/17 04:53 12/20/17 04:53 Labs: Abnormal Lab Results - Last 24 Hours (Table) 12/20/17 12/20/17 12/20/17 Range/Units 04:53 04:53 06:35 WBC 14.4 H (3.8-10.6) k/uL RBC 2.73 L (3.80-5.40) m/uL Hgb 7.5 L (11.4-16.0) gm/dL Hct 23.6 L (34.0-46.0) % RDW 19.3 H (11.5-15.5) % Neutrophils # 13.0 H (1.3-7.7) k/uL Lymphocytes # 0.7 L (1.0-4.8) k/uL ABG pH (7.35-7.45) ABG HCO3 (21-25) mmol/L ABG Total CO2 (19-24) mmol/L ABG O2 Saturation (94-97) % Carbon Dioxide 34 H (22-30) mmol/L BUN 42 H (7-17) mg/dL Creatinine 0.50 L (0.52-1.04) mg/dL POC Glucose (mg/dL) 105 H (75-99) mg/dL Calcium 8.2 L (8.4-10.2) mg/dL AST 66 H (14-36) U/L Alkaline Phosphatase 127 H (38-126) U/L Total Protein 5.1 L (6.3-8.2) g/dL Albumin 2.2 L (3.5-5.0) g/dL 12/20/17 Range/Units 07:57 WBC (3.8-10.6) k/uL RBC (3.80-5.40) m/uL Hgb (11.4-16.0) gm/dL Hct (34.0-46.0) % RDW (11.5-15.5) % Neutrophils # (1.3-7.7) k/uL Lymphocytes # (1.0-4.8) k/uL ABG pH 7.47 H (7.35-7.45) ABG HCO3 33 H (21-25) mmol/L ABG Total CO2 34 H (19-24) mmol/L ABG O2 Saturation 99.2 H (94-97) % Carbon Dioxide (22-30) mmol/L BUN (7-17) mg/dL Creatinine (0.52-1.04) mg/dL POC Glucose (mg/dL) (75-99) mg/dL Calcium (8.4-10.2) mg/dL AST (14-36) U/L Alkaline Phosphatase (38-126) U/L Total Protein (6.3-8.2) g/dL Albumin (3.5-5.0) g/dL Assessment and Plan Assessment: Assessment Postop day #23 status post one-vessel bypass grafting and mitral valve replacement Postoperative respiratory failure with failure to wean, with extubation occurring on 11/30/2017 Status post cardioversion on December 07 Status post wound dehiscence on December 08 Status post sternotomy on December 10 Anticipated flap repair on 12/21/2017 Reintubation and mechanical ventilation with failure to wean Chest x-ray evidence of fluid overload Acute blood loss anemia requiring blood transfusion History of hypertension History of severe mitral regurgitation History of left subclavian stenosis Paroxysmal atrial fibrillation History of GI bleed Obesity Possible aspiration with aspiration pneumonia Plan: Plan dated 11/29/2017 I will make some vent changes today including repeat increasing the rate from 12 -20, dropping the time of I'm down from 550 mL down to 400 mL and also reducing the FiO2 40%. We'll see if we can wean her off the norepinephrine holding propofol and do a daily eruption of sedation to evaluate for spontaneous breathing trial. Microbiology is negative. Labs x-rays and medications all reviewed. Prognosis is guarded. Additional recommendations and suggestions are forthcoming. I believe she would benefit from some diuretics. Blood gases are reviewed. Plan dated 11/30/2017 The patient will again have a daily eruption of sedation with a spontaneous breathing trial. She still remains on a number of different IV medications including norepinephrine, fall, Primacor. Arterial blood gases today are very reasonable. Her vent settings were adjusted yesterday. She's getting nourishment. We'll continue to follow closely. Labs x-rays a medications are reviewed. Hopeful improvement in the next day or so and eventual extubation. Plan dated 11/23/2017 The patient seems to be doing a bit better. Her chest x-ray certainly improved. She'll receive 1 unit of blood. She feels better. She still on BiPAP. She has significant edema throughout. Chest x-ray is improved. I do agree with 1 unit of blood followed by Salma. We'll continue to follow closely. Medications x-rays and labs are reviewed. Plan dated 12/02/2017 The patient will come off the BiPAP morning go back on nasal O2. Speech pathology was consulted. Chest x-ray looks about the same or slightly better. Still showing a bit of fluid overload. In addition, a Doppler of the right upper extremity was negative for DVT. The patient otherwise seems be doing reasonably well. We'll continue to follow. She is on Primacor and 0.2 mics per kilogram per minute and a half normal saline IV at KVO. BiPAP settings are 14/5 and 40%. Critical care time 34 minutes The patient is doing better after the BiPAP was placed on her. The patient also received Lasix 60 mg IV push. The patient's chest x-ray labs and medications are all reviewed. She's not receiving any additional fluid. We'll continue to follow. Prognosis is guarded. Critical care time 34 minutes. Plan dated 12/04/2017 The patient seemed be doing about the same as she was yesterday. Chest x-ray, in my opinion still shows evidence of fluid overload. She has cephalization and bilateral pleural effusions. Is a possibility she could have pneumonia. She's not producing any phlegm. She's been afebrile. I will add some Zosyn to her regimen. It certainly empiric. She should spend some time on BiPAP as well as a nasal O2. She seemed to do better on the BiPAP at 14 and 5 and 40%. She did have to receive some Lopressor for atrial fibrillation and RVR. I'm sure that's contributing to her shortness of breath as well. She does not have a lot of reserve. Prognosis is guarded. Plan dated 12/20/2017 I'm sorry to see that the patient still here in the ICU. It appears the patient 's had a number of different complications since I saw her last on December 04 including but not limited to cardioversion sternal dehiscence MrTy neck to me and anticipated flat repair tomorrow. The patient will be given a daily eruption of sedation and a spontaneous breathing trial. I'm not hopeful given her chronic illness for the current time. Additional recommendations and suggestions are forthcoming. In my opinion, we'll need a tracheostomy. We'll continue to follow. Prognosis is guarded. Meds labs and x-rays are all reviewed. Critical care time 31 minutes Time with Patient: Greater than 30
--- NOTE | 2017-12-20 13:04 | PN ---
PROGRESS NOTE The patient is status post mitral valve replacement and bypass surgery. Has sternal dehiscence and is to undergo surgery tomorrow. Has had episodes of atrial fibrillation. This morning, she remains in sinus rhythm. Heart rate is 70 beats per minute. Blood pressure is 114/62, respiratory rate is 14. Chest exam reveals diminished air entry bilaterally. Heart exam reveals first and second heart sounds and a systolic murmur at the apex. Abdomen is soft. Examination of the extremities reveals 1+ edema. Peripheral pulses are felt. ASSESSMENT: 1. Coronary artery disease, status post coronary artery bypass grafting. 2. Mitral regurgitation, status post mitral valve replacement. 3. Sternal wound dehiscence. 4. Postoperative atrial fibrillation. PLAN: The patient will continue with current medications. Surgery tomorrow. The patient will benefit from long-term anticoagulation. Anticoagulation per cardiothoracic surgeons. MMODL / IJN: [id number] /
[2017-12-20] MEDS: VANCOMYCIN 1,500 MG in SODIUM CHLORIDE 0.9% 250 ML IVPB SCH (16:03)
--- NOTE | 2017-12-20 18:18 | P.PN ---
Subjective Progress Note Date: 12/20/17 Progress note being dictated for Dr. Lugo Interval history: This is 67-year-old female status post CABG, mitral valve replacement, status post multiple blood products transfusions. Remains vent dependent on 40% FiO2/+5 of PEEP. Chest x-ray reporting fluid overload, improvement in volume status, aeration.Maintained on norepinephrine, Primacor, dopamine and insulin drip. Cardiac index 2.7. Telemetry atrial flutter/sinus tach. Tube feeding initiated via OG tube. Hemoglobin 7.3, Platelets decreased to 64 today, maintained on low-dose aspirin. Review systems unable to obtain as patient sedated and on mechanical ventilation. Active Medications Albuterol/Ipratropium (Duoneb 0.5 Mg-3 Mg/3 Ml Soln) 3 ml INHALATION RT-Q4H [facility] Last Admin: 11/29/17 15:17 Dose: 3 ml Albuterol/Ipratropium (Duoneb 0.5 Mg-3 Mg/3 Ml Soln) 3 ml INHALATION RT-Q2H PRN PRN Reason: Shortness Of Breath Or Wheezing Amiodarone HCl (Cordarone) 200 mg PO BID [facility] Aspirin (Aspirin) 81 mg PO DAILY [facility] Last Admin: 11/29/17 08:54 Dose: 81 mg Atorvastatin Calcium (Lipitor) 40 mg PO DAILY [facility] Last Admin: 11/29/17 08:54 Dose: 40 mg Benzocaine/Menthol (Cepacol Lozenge) 1 each MUCOUS MEM Q2H PRN PRN Reason: Sore Throat Bisacodyl (Dulcolax) 10 mg RECTAL DAILY PRN PRN Reason: Constipation Chlorhexidine Gluconate (Peridex) 15 ml MUCOUS MEM BID [facility] Last Admin: 11/29/17 08:48 Dose: 15 ml Furosemide (Lasix) 40 mg IV ONCE ONE Stop: 11/29/17 20:01 Propofol 1,000 mg/ IV Solution 100 mls @ 0 mls/hr IV .Q0M [facility]; Titrate PRN Reason: Protocol Last Admin: 11/29/17 17:54 Dose: 26.13 mcg/kg/min, 17.2 mls/hr Norepinephrine Bitartrate (Levophed-0.9% Nacl 16 Mg/250ml Pmx) 16 mg in 250 mls @ 0 mls/hr IV .Q0M [facility]; Titrate PRN Reason: Protocol Last Admin: 11/29/17 17:54 Dose: 2 mcg/min, 1.875 mls/hr Sodium Chloride (Saline 0.45%) 1,000 mls @ 30 mls/hr IV .Q24H [facility] Last Admin: 11/29/17 10:28 Dose: Not Given Milrinone Lactate/Dextrose 20 (mg/ IV Solution) 100 mls @ 6.58 mls/hr IV .[id number] [facility] PRN Reason: 0.2 MCG/KG/MIN Last Admin: 11/29/17 15:38 Dose: 0.2 mcg/kg/min, 6.58 mls/hr Insulin Aspart (Novolog) 0 unit SQ Q6HR [facility] PRN Reason: Protocol Last Admin: 11/29/17 12:36 Dose: Not Given Magnesium Hydroxide (Milk Of Magnesia) 2,400 mg PO BID PRN PRN Reason: Constipation Metoprolol Tartrate (Lopressor) 12.5 mg PO BID [facility] Last Admin: 11/29/17 08:55 Dose: 12.5 mg Miscellaneous Information (Magnesium Per Protocol) 1 each MISCELLANE DAILY PRN ; Protocol PRN Reason: Per Protocol Miscellaneous Information (Phosphorus Per Protocol) 1 each MISCELLANE DAILY PRN ; Protocol PRN Reason: Per Protocol Miscellaneous Information (Potassium Per Protocol) 1 each MISCELLANE DAILY PRN ; Protocol PRN Reason: Per Protocol Miscellaneous Information (Potassium Per Protocol) 1 each MISCELLANE DAILY PRN ; Protocol PRN Reason: Per Protocol Morphine Sulfate (Morphine Oral Dana 2mg/Ml) 6 mg PO Q2H PRN PRN Reason: Severe Pain Ondansetron HCl (Zofran) 4 mg IVP Q6HR PRN PRN Reason: Nausea And Vomiting Pantoprazole Sodium (Protonix) 40 mg IVP DAILY [facility] Last Admin: 11/29/17 08:55 Dose: 40 mg Senna/Docusate Sodium (Senokot-S) 2 each PO HS [facility] Last Admin: 11/28/17 20:41 Dose: 2 each Sodium Chloride (Saline Flush) 10 ml IV BID [facility] Last Admin: 11/29/17 08:56 Dose: 10 ml 11/30/2017 Chest x-ray reporting increased congestion, received additional Lasix. extubated this morning, currently maintained on BiPAP. Norepinephrine weaned off this morning. Maintained on Primacor, cardiac index 2.6. Received 1 dose of Lasix IV push. Renal function improving. Hemoglobin 7, platelets increased to 74. Atrial flutter per telemetry. Review systems unable to obtain as patient BiPAP dependent. Active Medications Generic Name Dose Route Start Last Admin Trade Name Freq PRN Reason Stop Dose Admin Albuterol/Ipratropium 3 ml 11/25/17 20:00 11/30/17 15:23 Duoneb 0.5 Mg-3 Mg/3 Ml Soln INHALATION 3 ml RT-Q4H [facility] Administration Albuterol/Ipratropium 3 ml 11/26/17 17:53 Duoneb 0.5 Mg-3 Mg/3 Ml Soln INHALATION RT-Q2H PRN Shortness Of Breath Or Wheezing Amiodarone HCl 200 mg 11/29/17 21:00 11/30/17 08:14 Cordarone PO 200 mg BID [facility] Administration Aspirin 81 mg 11/26/17 10:15 11/30/17 08:15 Aspirin PO 81 mg DAILY [facility] Administration Atorvastatin Calcium 40 mg 11/26/17 09:00 11/30/17 08:14 Lipitor PO 40 mg DAILY [facility] Administration Benzocaine/Menthol 1 each 11/25/17 19:03 Cepacol Lozenge MUCOUS MEM Q2H PRN Sore Throat Bisacodyl 10 mg 11/26/17 17:52 Dulcolax RECTAL DAILY PRN Constipation Fondaparinux 2.5 mg 11/30/17 11:30 11/30/17 13:23 Arixtra SQ 2.5 mg DAILY [facility] Administration Norepinephrine Bitartrate 16 mg in 250 mls @ 0 mls/hr 11/26/17 04:15 11:58 Levophed-0.9% Nacl 16 Mg/250ml Pmx IV 0 mcg/min .Q0M [facility] 0 mls/hr Protocol Titration Titrate Sodium Chloride 1,000 mls @ 10 mls/hr 11/26/17 10:15 11/30/17 12:51 Saline 0.45% IV Not Given .Q24H [facility] Milrinone Lactate/Dextrose 20 100 mls @ 6.58 mls/hr 11/29/17 15:00 11/30/17 08:16 mg/ IV Solution IV 0.2 mcg/kg/min .[id number] [facility] 6.58 mls/hr 0.2 MCG/KG/MIN Infusion Insulin Aspart 0 unit 11/29/17 12:00 11/30/17 12:50 Novolog SQ Not Given Q6HR [facility] Protocol Magnesium Hydroxide 2,400 mg 11/26/17 17:53 Milk Of Magnesia PO BID PRN Constipation Metoprolol Tartrate 12.5 mg 11/26/17 09:00 11/30/17 08:15 Lopressor PO 12.5 mg BID [facility] Administration Miscellaneous Information 1 each 11/25/17 19:03 Magnesium Per Protocol MISCELLANE DAILY PRN Per Protocol Protocol Miscellaneous Information 1 each 11/25/17 19:03 Phosphorus Per Protocol MISCELLANE DAILY PRN Per Protocol Protocol Miscellaneous Information 1 each 11/25/17 19:03 Potassium Per Protocol MISCELLANE DAILY PRN Per Protocol Protocol Miscellaneous Information 1 each 11/29/17 12:01 Potassium Per Protocol MISCELLANE DAILY PRN Per Protocol Protocol Morphine Sulfate 6 mg 11/29/17 13:31 Morphine Oral Dana 2mg/Ml PO Q2H PRN Severe Pain Ondansetron HCl 4 mg 11/25/17 19:03 Zofran IVP Q6HR PRN Nausea And Vomiting Pantoprazole Sodium 40 mg 11/26/17 09:00 11/30/17 08:15 Protonix IVP 40 mg DAILY [facility] Administration Senna/Docusate Sodium 2 each 11/26/17 21:00 11/29/17 20:40 Senokot-S PO 2 each HS [facility] Administration Sodium Chloride 10 ml 11/25/17 21:00 11/30/17 08:15 Saline Flush IV 10 ml BID [facility] Administration 12/01/2017 Breathing improving, weaned off of BiPAP and down to 6 L high flow. Wheezing resolved. Chest x-ray reports improvement. Staff reports patient appeared to be choking on pills last night, speech therapy consulted. Receiving one unit of packed RBCs for hemoglobin of 6.7. Mediastinal chest tubes discontinued, left pleural chest tube remains. Maintained on Primacor. Telemetry atrial flutter. Review of systems: CONSTITUTIONAL: No fever, no malaise HEENT: No recent visual problems or hearing problems. Denied any sore throat. CARDIOVASCULAR: No chest pain, no palpitations, no syncope. PULMONARY: Improving shortness of breath, no cough, no hemoptysis. GASTROINTESTINAL: No diarrhea, no nausea, no vomiting, no abdominal pain. Normoactive bowel sounds. NEUROLOGICAL: No headaches, diffuse weakness, no numbness. HEMATOLOGICAL: Denies any bleeding or petechiae. GENITOURINARY: Denies any burning micturition, frequency, or urgency. ENDOCRINE: Denies any polyuria or polydipsia. PSYCHIATRIC: No anxiety, no depression Active Medications Hydrocodone Bitart/Acetaminophen ([place] 5-325) 1 each PO Q4HR PRN PRN Reason: MILD TO MODERATE Pain Last Admin: 12/01/17 22:44 Dose: 1 each Hydrocodone Bitart/Acetaminophen ([place] 5-325) 2 each PO Q4HR PRN PRN Reason: MODERATE TO SEVERE Pain Albuterol/Ipratropium (Duoneb 0.5 Mg-3 Mg/3 Ml Soln) 3 ml INHALATION RT-Q4H [facility] Last Admin: 12/02/17 15:06 Dose: 3 ml Albuterol/Ipratropium (Duoneb 0.5 Mg-3 Mg/3 Ml Soln) 3 ml INHALATION RT-Q2H PRN PRN Reason: Shortness Of Breath Or Wheezing Last Admin: 12/01/17 18:09 Dose: 3 ml Amiodarone HCl (Cordarone) 200 mg PO BID [facility] Last Admin: 12/02/17 08:10 Dose: 200 mg Aspirin (Aspirin) 81 mg PO DAILY [facility] Last Admin: 12/02/17 08:10 Dose: 81 mg Atorvastatin Calcium (Lipitor) 40 mg PO DAILY [facility] Last Admin: 12/02/17 08:10 Dose: 40 mg Benzocaine/Menthol (Cepacol Lozenge) 1 each MUCOUS MEM Q2H PRN PRN Reason: Sore Throat Bisacodyl (Dulcolax) 10 mg RECTAL DAILY PRN PRN Reason: Constipation Budesonide (Pulmicort) 1 mg INHALATION RT-BID [facility] Last Admin: 12/02/17 07:19 Dose: 1 mg Fondaparinux (Arixtra) 2.5 mg SQ DAILY [facility] Last Admin: 12/02/17 08:10 Dose: 2.5 mg Formoterol Fumarate (Perforomist) 20 mcg INHALATION RT-BID [facility] Last Admin: 12/02/17 07:36 Dose: 20 mcg Norepinephrine Bitartrate (Levophed-0.9% Nacl 16 Mg/250ml Pmx) 16 mg in 250 mls @ 0 mls/hr IV .Q0M [facility]; Titrate PRN Reason: Protocol Last Titration: 11/30/17 11:58 Dose: 0 mcg/min, 0 mls/hr Sodium Chloride (Saline 0.45%) 1,000 mls @ 10 mls/hr IV .Q24H [facility] Last Admin: 12/01/17 14:04 Dose: 10 mls/hr Milrinone Lactate/Dextrose 20 (mg/ IV Solution) 100 mls @ 6.58 mls/hr IV .[id number] [facility] PRN Reason: 0.2 MCG/KG/MIN Last Admin: 12/02/17 08:57 Dose: 0.2 mcg/kg/min, 6.58 mls/hr Insulin Aspart (Novolog) 0 unit SQ Q6HR [facility] PRN Reason: Protocol Last Admin: 12/02/17 12:53 Dose: Not Given Magnesium Hydroxide (Milk Of Magnesia) 2,400 mg PO BID PRN PRN Reason: Constipation Methylprednisolone Sodium Succinate (Solu-Medrol) 30 mg IV Q8HR [facility] Last Admin: 12/02/17 08:10 Dose: 30 mg Metoprolol Tartrate (Lopressor) 25 mg PO BID [facility] Last Admin: 12/02/17 08:59 Dose: 25 mg Miscellaneous Information (Magnesium Per Protocol) 1 each MISCELLANE DAILY PRN ; Protocol PRN Reason: Per Protocol Miscellaneous Information (Phosphorus Per Protocol) 1 each MISCELLANE DAILY PRN ; Protocol PRN Reason: Per Protocol Miscellaneous Information (Potassium Per Protocol) 1 each MISCELLANE DAILY PRN ; Protocol PRN Reason: Per Protocol Miscellaneous Information (Potassium Per Protocol) 1 each MISCELLANE DAILY PRN ; Protocol PRN Reason: Per Protocol Ondansetron HCl (Zofran) 4 mg IVP Q6HR PRN PRN Reason: Nausea And Vomiting Pantoprazole Sodium (Protonix) 40 mg IVP DAILY [facility] Last Admin: 12/02/17 08:10 Dose: 40 mg Senna/Docusate Sodium (Senokot-S) 2 each PO HS [facility] Last Admin: 12/01/17 21:55 Dose: 2 each Sodium Chloride (Saline Flush) 10 ml IV BID [facility] Last Admin: 12/02/17 12:51 Dose: 10 ml 12/02/17 Much more alert today. Oxygen weaned further down to 5 L nasal cannula, maintaining O2 sats in the high 90s. Pleural chest tube discontinued. Chest x- ray reporting probable right lower lobe atelectasis/effusion. Underwent modified barium swallow, with recommendations of regular diet, thin liquids, chin tuck, no straw, small bites/sepsis/sips; no impairment with exception of mild transient penetration with thin liquids which patient independently cleared. Yesterday receive 1 unit of packed RBCs with current hemoglobin 8. Weaning of Primacor in progress. 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 Review of systems: CONSTITUTIONAL: No fever, no malaise, no fatigue. HEENT: No recent visual problems or hearing problems. Denied any sore throat. CARDIOVASCULAR: No chest pain, no palpitations, no syncope. PULMONARY: Minimal shortness of breath, no cough, no hemoptysis. GASTROINTESTINAL: No diarrhea, no nausea, no vomiting, no abdominal pain. Normoactive bowel sounds. NEUROLOGICAL: No headaches, no weakness, no numbness. HEMATOLOGICAL: Denies any bleeding or petechiae. GENITOURINARY: Denies any burning micturition, frequency, or urgency. MUSCULOSKELETAL/RHEUMATOLOGICAL: Denies any joint pain, swelling, or any muscle pain. ENDOCRINE: Denies any polyuria or polydipsia. PSYCHIATRIC: No anxiety, no depression The rest of the 14 point review of systems is negative Active Medications Generic Name Dose Route Start Last Admin Trade Name Freq PRN Reason Stop Dose Admin Hydrocodone Bitart/Acetaminophen 1 each 12/01/17 12:20 12/01/17 22:44 [place] 5-325 PO 1 each Q4HR PRN Administration MILD TO MODERATE Pain Hydrocodone Bitart/Acetaminophen 2 each 12/01/17 12:20 [place] 5-325 PO Q4HR PRN MODERATE TO SEVERE Pain Albuterol/Ipratropium 3 ml 11/25/17 20:00 12/02/17 15:06 Duoneb 0.5 Mg-3 Mg/3 Ml Soln INHALATION 3 ml RT-Q4H [facility] Administration Albuterol/Ipratropium 3 ml 11/26/17 17:53 12/01/17 18:09 Duoneb 0.5 Mg-3 Mg/3 Ml Soln INHALATION 3 ml RT-Q2H PRN Administration Shortness Of Breath Or Wheezing Amiodarone HCl 200 mg 11/29/17 21:00 12/02/17 08:10 Cordarone PO 200 mg BID [facility] Administration Aspirin 81 mg 11/26/17 10:15 12/02/17 08:10 Aspirin PO 81 mg DAILY [facility] Administration Atorvastatin Calcium 40 mg 11/26/17 09:00 12/02/17 08:10 Lipitor PO 40 mg DAILY [facility] Administration Benzocaine/Menthol 1 each 11/25/17 19:03 Cepacol Lozenge MUCOUS MEM Q2H PRN Sore Throat Bisacodyl 10 mg 11/26/17 17:52 Dulcolax RECTAL DAILY PRN Constipation Budesonide 1 mg 12/01/17 20:00 12/02/17 07:19 Pulmicort INHALATION 1 mg RT-BID [facility] Administration Fondaparinux 2.5 mg 11/30/17 11:30 12/02/17 08:10 Arixtra SQ 2.5 mg DAILY [facility] Administration Formoterol Fumarate 20 mcg 12/01/17 20:00 12/02/17 07:36 Perforomist INHALATION 20 mcg RT-BID [facility] Administration Norepinephrine Bitartrate 16 mg in 250 mls @ 0 mls/hr 11/26/17 04:15 11:58 Levophed-0.9% Nacl 16 Mg/250ml Pmx IV 0 mcg/min .Q0M [facility] 0 mls/hr Protocol Titration Titrate Sodium Chloride 1,000 mls @ 10 mls/hr 11/26/17 10:15 12/02/17 15:41 Saline 0.45% IV Not Given .Q24H [facility] Milrinone Lactate/Dextrose 20 100 mls @ 6.58 mls/hr 11/29/17 15:00 12/02/17 08:57 mg/ IV Solution IV 0.2 mcg/kg/min .[id number] [facility] 6.58 mls/hr 0.2 MCG/KG/MIN Administration Insulin Aspart 0 unit 11/29/17 12:00 12/02/17 12:53 Novolog SQ Not Given Q6HR [facility] Protocol Magnesium Hydroxide 2,400 mg 11/26/17 17:53 Milk Of Magnesia PO BID PRN Constipation Methylprednisolone Sodium Succinate 30 mg 12/01/17 16:00 12/02/17 08:10 Solu-Medrol IV 30 mg Q8HR [facility] Administration Metoprolol Tartrate 25 mg 12/02/17 09:00 12/02/17 08:59 Lopressor PO 25 mg BID [facility] Administration Miscellaneous Information 1 each 11/25/17 19:03 Magnesium Per Protocol MISCELLANE DAILY PRN Per Protocol Protocol Miscellaneous Information 1 each 11/25/17 19:03 Phosphorus Per Protocol MISCELLANE DAILY PRN Per Protocol Protocol Miscellaneous Information 1 each 11/25/17 19:03 Potassium Per Protocol MISCELLANE DAILY PRN Per Protocol Protocol Miscellaneous Information 1 each 11/29/17 12:01 Potassium Per Protocol MISCELLANE DAILY PRN Per Protocol Protocol Ondansetron HCl 4 mg 11/25/17 19:03 Zofran IVP Q6HR PRN Nausea And Vomiting Pantoprazole Sodium 40 mg 11/26/17 09:00 12/02/17 08:10 Protonix IVP 40 mg DAILY [facility] Administration Senna/Docusate Sodium 2 each 11/26/17 21:00 12/01/17 21:55 Senokot-S PO 2 each HS [facility] Administration Sodium Chloride 10 ml 11/25/17 21:00 12/02/17 12:51 Saline Flush IV 10 ml BID [facility] Administration 12/03/17 maintained on nebulized bronchodilators, steroids,patient tachypneic, requiring BiPap throughout today off and on. Chest x-ray suggestive of fluid overload. Received additional Lasix. Maintained on oral amiodarone, remains in a-flutter. Overdrive atrial pacing attempted unsuccessfully. Digoxin 2 ordered. Pacer wires discontinued today. Stool at bedside with PT OT, remains extremely weak. Primacor weaned off yesterday. 2017 currently in atrial fibrillation with heart rates up into the 150s, scheduled for cardioversion tomorrow. INR 2.2. Patient currently wearing BiPAP ,has required on and off all day. Chest ultrasound reporting bilateral pleural effusions, larger on the right. Thoracentesis on hold, awaiting cardioversion.Chest x-ray reporting prominent interstitium and central vascularity, increased bibasilar density. Attempting diuresing with Lasix and Zaroxolyn. Review systems unable to obtain as patient currently on BiPAP. Active Medications Hydrocodone Bitart/Acetaminophen ([place] 5-325) 1 each PO Q4HR PRN PRN Reason: MILD TO MODERATE Pain Last Admin: 12/07/17 10:48 Dose: 1 each Hydrocodone Bitart/Acetaminophen ([place] 5-325) 2 each PO Q4HR PRN PRN Reason: MODERATE TO SEVERE Pain Last Admin: 12/07/17 16:39 Dose: 2 each Albuterol/Ipratropium (Duoneb 0.5 Mg-3 Mg/3 Ml Soln) 3 ml INHALATION RT-Q2H PRN PRN Reason: Shortness Of Breath Or Wheezing Last Admin: 12/01/17 18:09 Dose: 3 ml Albuterol/Ipratropium (Duoneb 0.5 Mg-3 Mg/3 Ml Soln) 3 ml INHALATION RT-QID [facility] Last Admin: 12/07/17 16:43 Dose: 3 ml Amiodarone HCl (Cordarone) 200 mg PO BID [facility] Aspirin (Aspirin) 81 mg PO DAILY [facility] Last Admin: 12/07/17 08:53 Dose: 81 mg Atorvastatin Calcium (Lipitor) 40 mg PO DAILY [facility] Last Admin: 12/07/17 08:53 Dose: 40 mg Benzocaine/Menthol (Cepacol Lozenge) 1 each MUCOUS MEM Q2H PRN PRN Reason: Sore Throat Bisacodyl (Dulcolax) 10 mg RECTAL DAILY PRN PRN Reason: Constipation Budesonide (Pulmicort) 1 mg INHALATION RT-BID [facility] Last Admin: 12/07/17 08:36 Dose: 1 mg Escitalopram Oxalate (Lexapro) 10 mg PO HS [facility] Furosemide (Lasix) 40 mg IV Q12HR [facility] Last Admin: 12/07/17 08:33 Dose: 40 mg Piperacillin/Tazobactam/ (Dextrose 3.375 gm/ IV Solution) 50 mls @ 12.5 mls/hr IVPB Q8HR [facility] Last Admin: 12/07/17 16:39 Dose: 12.5 mls/hr Sodium Chloride (Saline 0.9%) 1,000 mls @ 20 mls/hr IV .Q24H [facility] Last Admin: 12/07/17 13:00 Dose: 20 mls/hr Lactated Ringer's (Lactated Ringers) 1,000 mls @ 20 mls/hr IV .Q24H [facility] Last Admin: 12/06/17 20:45 Dose: 20 mls/hr Insulin Aspart (Novolog) 0 unit SQ ACHS [facility] PRN Reason: Protocol Last Admin: 12/07/17 13:01 Dose: 2 unit Magnesium Hydroxide (Milk Of Magnesia) 2,400 mg PO BID PRN PRN Reason: Constipation Methylprednisolone Sodium Succinate (Solu-Medrol) 30 mg IV Q8HR [facility] Last Admin: 12/07/17 16:39 Dose: 30 mg Metolazone (Zaroxolyn) 5 mg PO DAILY [facility] Last Admin: 12/07/17 08:53 Dose: 5 mg Metoprolol Tartrate (Lopressor) 50 mg PO BID [facility] Last Admin: 12/07/17 08:53 Dose: 50 mg Miscellaneous Information (Magnesium Per Protocol) 1 each MISCELLANE DAILY PRN ; Protocol PRN Reason: Per Protocol Miscellaneous Information (Phosphorus Per Protocol) 1 each MISCELLANE DAILY PRN ; Protocol PRN Reason: Per Protocol Miscellaneous Information (Potassium Per Protocol) 1 each MISCELLANE DAILY PRN ; Protocol PRN Reason: Per Protocol Ondansetron HCl (Zofran) 4 mg IVP Q6HR PRN PRN Reason: Nausea And Vomiting Pantoprazole Sodium (Protonix) 40 mg PO AC-BRKFST [facility] Last Admin: 12/07/17 08:53 Dose: 40 mg Senna/Docusate Sodium (Senokot-S) 2 each PO HS [facility] Last Admin: 12/06/17 20:29 Dose: 2 each Sodium Chloride (Saline Flush) 10 ml IV BID [facility] Last Admin: 12/07/17 10:48 Dose: 10 ml 12/07/2017 Underwent successful cardioversion this morning,360J X1, remains in sinus rhythm. Currently wearing BiPAP. Nonproductive cough. Diuresing well on Lasix and Zaroxolyn with 24-hour I&O reflecting a negative fluid balance. Chest x-ray reporting stable bilateral areas of infiltrate and pleural effusions , possible CHF, possible pneumonia. INR 3.8, afebrile, WBC 17. Maintained on Zosyn. Sternal wound drainage, cultures sent. 12/08/2017 Cardioverted yesterday, remains in sinus rhythm .continues requiring BiPAP for majority of morning. Echo reporting-limited study for assessment of pericardial effusion, small generalized pericardial effusion, low normal LV function, EF 50-55%. Chest CT reporting sternal dehiscence, moderate to large pericardial effusion, possible mass effect onto the left ventricle, no significant right atrial dilatation to clearly indicate tamponade, moderate left pleural effusion with adjacent complete left lower lobar and inferior lingular collapse, small right pleural effusion, right basilar subsegmental atelectasis. Chest x-ray noted. Blood sugars controlled. INR 4.8, received vitamin K this morning. Diuresing well on Lasix IV push, Zaroxolyn. 24-hour I& O reflecting a negative fluid balance, decreased weight. Midsternal incision open, draining large amount of serosanguineous drainage. Currently maintained on Zosyn. Wound cultures pending. Afebrile. Review systems unable to obtain as patient currently on BiPAP. Active Medications Generic Name Dose Route Start Last Admin Trade Name Freq PRN Reason Stop Dose Admin Hydrocodone Bitart/Acetaminophen 1 each 12/01/17 12:20 12/08/17 06:26 [place] 5-325 PO 1 each Q4HR PRN Administration MILD TO MODERATE Pain Hydrocodone Bitart/Acetaminophen 2 each 12/01/17 12:20 12/08/17 18:41 [place] 5-325 PO 2 each Q4HR PRN Administration MODERATE TO SEVERE Pain Acetazolamide Sodium 250 mg 12/08/17 09:15 12/08/17 11:16 Diamox IV 12/08/17 21:01 250 mg Q12HR [facility] Administration Albuterol/Ipratropium 3 ml 11/26/17 17:53 12/08/17 05:16 Duoneb 0.5 Mg-3 Mg/3 Ml Soln INHALATION 3 ml RT-Q2H PRN Administration Shortness Of Breath Or Wheezing Albuterol/Ipratropium 3 ml 12/03/17 08:00 12/08/17 15:38 Duoneb 0.5 Mg-3 Mg/3 Ml Soln INHALATION 3 ml RT-QID [facility] Administration Amiodarone HCl 200 mg 12/08/17 09:00 12/08/17 08:24 Cordarone PO 200 mg BID [facility] Administration Aspirin 81 mg 11/26/17 10:15 12/08/17 08:24 Aspirin PO 81 mg DAILY [facility] Administration Atorvastatin Calcium 40 mg 11/26/17 09:00 12/08/17 08:25 Lipitor PO 40 mg DAILY [facility] Administration Benzocaine/Menthol 1 each 11/25/17 19:03 Cepacol Lozenge MUCOUS MEM Q2H PRN Sore Throat Bisacodyl 10 mg 11/26/17 17:52 Dulcolax RECTAL DAILY PRN Constipation Budesonide 1 mg 12/01/17 20:00 12/08/17 09:26 Pulmicort INHALATION 1 mg RT-BID [facility] Administration Escitalopram Oxalate 10 mg 12/07/17 21:00 12/07/17 20:10 Lexapro PO 10 mg HS [facility] Administration Piperacillin/Tazobactam/ 50 mls @ 12.5 mls/hr 12/04/17 16:00 12/08/17 16:11 Dextrose 3.375 gm/ IV Solution IVPB 12.5 mls/hr Q8HR [facility] Administration Sodium Chloride 1,000 mls @ 20 mls/hr 12/06/17 10:45 12/08/17 13:47 Saline 0.9% IV Not Given .Q24H [facility] Insulin Aspart 0 unit 12/02/17 21:00 12/08/17 17:46 Novolog SQ 1 unit ACHS [facility] Administration Protocol Magnesium Hydroxide 2,400 mg 11/26/17 17:53 Milk Of Magnesia PO BID PRN Constipation Metoprolol Tartrate 50 mg 12/06/17 21:00 12/08/17 08:24 Lopressor PO 50 mg BID [facility] Administration Miscellaneous Information 1 each 11/25/17 19:03 Magnesium Per Protocol MISCELLANE DAILY PRN Per Protocol Protocol Miscellaneous Information 1 each 11/25/17 19:03 Phosphorus Per Protocol MISCELLANE DAILY PRN Per Protocol Protocol Miscellaneous Information 1 each 11/25/17 19:03 Potassium Per Protocol MISCELLANE DAILY PRN Per Protocol Protocol Ondansetron HCl 4 mg 11/25/17 19:03 Zofran IVP Q6HR PRN Nausea And Vomiting Pantoprazole Sodium 40 mg 12/05/17 07:30 12/08/17 08:25 Protonix PO 40 mg AC-[id number] [facility] Administration Senna/Docusate Sodium 2 each 11/26/17 21:00 12/07/17 20:16 Senokot-S PO 2 each HS [facility] Administration Sodium Chloride 10 ml 11/25/17 21:00 12/08/17 11:16 Saline Flush IV 10 ml BID [facility] Administration 12/09/17 Remains in sinus rhythm. mostly BiPAP dependent. Incentive spirometer up to 700 -750. Chest x-ray reporting improving moderate pleural effusion, cardiomegaly. Sternal wound culture positive for gram-negative bacilli. Maintained on Zosyn. Diet intake fair. Blood sugars controlled. Review systems unable to be performed as patient on BiPAP Active Medications Hydrocodone Bitart/Acetaminophen ([place] 5-325) 1 each PO Q4HR PRN PRN Reason: MILD TO MODERATE Pain Last Admin: 12/09/17 10:03 Dose: 1 each Hydrocodone Bitart/Acetaminophen ([place] 5-325) 2 each PO Q4HR PRN PRN Reason: MODERATE TO SEVERE Pain Last Admin: 12/09/17 14:51 Dose: 2 each Albuterol/Ipratropium (Duoneb 0.5 Mg-3 Mg/3 Ml Soln) 3 ml INHALATION RT-Q2H PRN PRN Reason: Shortness Of Breath Or Wheezing Last Admin: 12/08/17 05:16 Dose: 3 ml Albuterol/Ipratropium (Duoneb 0.5 Mg-3 Mg/3 Ml Soln) 3 ml INHALATION RT-QID [facility] Last Admin: 12/09/17 15:42 Dose: 3 ml Amiodarone HCl (Cordarone) 200 mg PO BID [facility] Last Admin: 12/09/17 08:12 Dose: 200 mg Aspirin (Aspirin) 81 mg PO DAILY [facility] Last Admin: 12/09/17 08:13 Dose: 81 mg Atorvastatin Calcium (Lipitor) 40 mg PO DAILY [facility] Last Admin: 12/09/17 08:13 Dose: 40 mg Benzocaine/Menthol (Cepacol Lozenge) 1 each MUCOUS MEM Q2H PRN PRN Reason: Sore Throat Bisacodyl (Dulcolax) 10 mg RECTAL DAILY PRN PRN Reason: Constipation Budesonide (Pulmicort) 1 mg INHALATION RT-BID [facility] Last Admin: 12/09/17 07:45 Dose: 1 mg Escitalopram Oxalate (Lexapro) 10 mg PO HS [facility] Last Admin: 12/08/17 20:33 Dose: 10 mg Piperacillin/Tazobactam/ (Dextrose 3.375 gm/ IV Solution) 50 mls @ 12.5 mls/hr IVPB Q8HR [facility] Last Admin: 12/09/17 08:16 Dose: 12.5 mls/hr Sodium Chloride (Saline 0.9%) 1,000 mls @ 20 mls/hr IV .Q24H [facility] Last Admin: 12/09/17 08:17 Dose: 20 mls/hr Insulin Aspart (Novolog) 0 unit SQ ACHS [facility] PRN Reason: Protocol Last Admin: 12/09/17 12:23 Dose: Not Given Magnesium Hydroxide (Milk Of Magnesia) 2,400 mg PO BID PRN PRN Reason: Constipation Metoprolol Tartrate (Lopressor) 50 mg PO BID [facility] Last Admin: 12/09/17 08:13 Dose: 50 mg Miscellaneous Information (Magnesium Per Protocol) 1 each MISCELLANE DAILY PRN ; Protocol PRN Reason: Per Protocol Miscellaneous Information (Phosphorus Per Protocol) 1 each MISCELLANE DAILY PRN ; Protocol PRN Reason: Per Protocol Miscellaneous Information (Potassium Per Protocol) 1 each MISCELLANE DAILY PRN ; Protocol PRN Reason: Per Protocol Ondansetron HCl (Zofran) 4 mg IVP Q6HR PRN PRN Reason: Nausea And Vomiting Pantoprazole Sodium (Protonix) 40 mg PO AC-BRKFST [facility] Last Admin: 12/09/17 08:11 Dose: 40 mg Senna/Docusate Sodium (Senokot-S) 2 each PO HS [facility] Last Admin: 12/08/17 20:37 Dose: 2 each Sodium Chloride (Saline Flush) 10 ml IV BID [facility] Last Admin: 12/09/17 08:13 Dose: 10 ml 12/13/17 maintained on Merrem and vancomycin. BiPAP dependent. Worsening chest x-ray, chest CT reporting near complete collapse of left lung, enlarging moderate to large pericardial effusion. Echo pending. Multiple episodes of diarrhea. Atrial flutter with RVR, Review systems unable to be performed as patient on BiPAP Active Medications Generic Name Dose Route Start Last Admin Trade Name Freq PRN Reason Stop Dose Admin Hydrocodone Bitart/Acetaminophen 1 each 12/01/17 12:20 12/13/17 08:08 [place] 5-325 PO 1 each Q4HR PRN Administration MILD TO MODERATE Pain Hydrocodone Bitart/Acetaminophen 2 each 12/01/17 12:20 12/13/17 15:08 [place] 5-325 PO 2 each Q4HR PRN Administration MODERATE TO SEVERE Pain Albuterol/Ipratropium 3 ml 11/26/17 17:53 12/08/17 05:16 Duoneb 0.5 Mg-3 Mg/3 Ml Soln INHALATION 3 ml RT-Q2H PRN Administration Shortness Of Breath Or Wheezing Albuterol/Ipratropium 3 ml 12/03/17 08:00 12/13/17 16:02 Duoneb 0.5 Mg-3 Mg/3 Ml Soln INHALATION Not Given RT-QID [facility] Amiodarone HCl 200 mg 12/11/17 20:00 12/13/17 09:12 Cordarone PO 200 mg BID@0800,2000 [facility] Administration Aspirin 81 mg 11/26/17 10:15 12/13/17 09:13 Aspirin PO 81 mg DAILY [facility] Administration Atorvastatin Calcium 40 mg 11/26/17 09:00 12/13/17 09:13 Lipitor PO 40 mg DAILY [facility] Administration Benzocaine/Menthol 1 each 11/25/17 19:03 Cepacol Lozenge MUCOUS MEM Q2H PRN Sore Throat Bisacodyl 10 mg 11/26/17 17:52 12/12/17 17:45 Dulcolax RECTAL 10 mg DAILY PRN Administration Constipation Budesonide 1 mg 12/01/17 20:00 12/13/17 07:46 Pulmicort INHALATION 1 mg RT-BID [facility] Administration Escitalopram Oxalate 10 mg 12/07/17 21:00 12/12/17 20:16 Lexapro PO 10 mg HS [facility] Administration Heparin Sodium (Porcine) 5,000 unit 12/10/17 16:00 12/13/17 09:14 Heparin SQ 5,000 unit Q8HR [facility] Administration Sodium Chloride 1,000 mls @ 20 mls/hr 12/06/17 10:45 12/13/17 09:49 Saline 0.9% IV 20 mls/hr .Q24H [facility] Administration Meropenem 1 gm/ Sodium 100 mls @ 100 mls/hr 12/09/17 22:00 12/13/17 09:46 Chloride IVPB 100 mls/hr Q8HR [facility] Administration Vancomycin HCl 1,750 mg/ 250 mls @ 125 mls/hr 12/13/17 14:00 12/13/17 14:15 Sodium Chloride IVPB 125 mls/hr Q12HR@0000,1200 [facility] Administration Insulin Aspart 0 unit 12/02/17 21:00 12/13/17 12:34 Novolog SQ Not Given ACHS [facility] Protocol Lactobacillus Acidoph/Bulgaricus 1 each 12/13/17 16:00 Lactinex PO TID [facility] Magnesium Hydroxide 2,400 mg 11/26/17 17:53 Milk Of Magnesia PO BID PRN Constipation Metoprolol Tartrate 50 mg 12/11/17 22:00 12/13/17 09:13 Lopressor PO 50 mg BID@1000,2200 [facility] Administration Miscellaneous Information 1 each 11/25/17 19:03 Magnesium Per Protocol MISCELLANE DAILY PRN Per Protocol Protocol Miscellaneous Information 1 each 11/25/17 19:03 Phosphorus Per Protocol MISCELLANE DAILY PRN Per Protocol Protocol Miscellaneous Information 1 each 11/25/17 19:03 Potassium Per Protocol MISCELLANE DAILY PRN Per Protocol Protocol Ondansetron HCl 4 mg 11/25/17 19:03 Zofran IVP Q6HR PRN Nausea And Vomiting Pantoprazole Sodium 40 mg 12/05/17 07:30 12/13/17 09:13 Protonix PO 40 mg AC-BRKFST [facility] Administration Senna/Docusate Sodium 2 each 11/26/17 21:00 12/12/17 20:16 Senokot-S PO 2 each HS [facility] Administration Sodium Chloride 10 ml 11/25/17 21:00 12/13/17 09:49 Saline Flush IV 10 ml BID [facility] Administration 12/14/17 maintained on Merrem and vancomycin per infectious disease .remains BiPAP dependent. Chest x-ray reporting persistent significant left lung collapse with minimal improvement. Scheduled for bronchoscopy this afternoon. INR 2.1, receiving FFP. No diarrhea today. Telemetry atrial fibrillation/ flutter, heart rate 110s to 120s. 12/15/2017 developed worsened respiratory distress despite BiPAP, diuretics, antiarrhythmics, intubated last night. Received 2 more units of FFP this morning, underwent bronchoscopy this morning; mucous plug discovered in the left lower lobe. Pleural Cultures pending. Maintained on FiO2 45%/+5 of PEEP. Continues on IV antibiotics. Currently on 2-1/2 mics of Levophed and diprovan drips. Atrial tachycardia, heart rate in the 130s. Amiodarone discontinued as per cardiology. Developed increased bleeding from wound VAC with turning during bath-Anticoagulation placed on hold. Afebrile. 12/16/17 remains vent dependent, FiO2 40%/+5 of PEEP. Sedated on Diprovan. Requiring low-dose of Levophed. Marginal urine output, received albumin last night. Tachycardia resolved, sinus rhythm per telemetry. Wound VAC dressing changed today, serosanguineous drainage. Bronchoscopy yesterday, cultures pending. Blood sugars controlled. 12/17/2017 today weaning trials of pressure support in increments of 3 hours , resting at night, FiO2 40%/+5 of PEEP. Chest x-ray reporting improvement. Currently on Levophed. Tolerating tube feeds at goal with minimal to no residual. Maintained on IV antibiotics as per infectious disease. Telemetry sinus rhythm. 12/20/17 remains vent dependent FiO2 40%/PEEP of 5. Yesterday vent weaning during the day hours, tolerated well. Wound VAC changed yesterday. Scheduled for sternal flap repair tomorrow. Maintained on IV antibiotics. T-max 99.4. Last night returned into rapid atrial flutter, Currently sinus rhythm. Objective - Vital Signs Vital signs: Vital Signs Temp 99.4 F 12/20/17 16:00 Pulse 73 12/20/17 17:00 Resp 15 12/20/17 17:00 BP 116/54 12/19/17 10:00 Pulse Ox 100 12/20/17 17:00 Intake & Output 12/19/17 12/20/17 12/20/17 18:59 06:59 18:59 Intake Total 916 969.59 761 Output Total 1190 530 335 Balance -274 439.59 426 Weight 111.7 kg 113.2 kg 113.2 kg Intake: IV 256 276 161 Pressure Bag 36 36 21 Sodium Chloride 0.9% 1, 220 240 140 000 ml @ 20 mls/hr IV . Q24H [facility] Rx#:[id number] Intake, IV Titration 100 93.59 200 Amount Fluconazole in NaCl,Iso- 100 Osm 200 mg In Saline 1 100ml.bag @ 100 mls/hr IVPB DAILY [facility] Rx#: [id number] Propofol 1,000 mg In 100 93.59 100 Empty Bag 1 bag @ Titrate IV .Q0M [facility] Rx#: [id number] Tube Feeding 560 600 400 Output: Chest Tube Drainage 0 Pleural Catheter Left 0 Drainage 0 Medial Chest Incision - 0 Woundvac Urine 1190 530 335 Other: Voiding Method Indwelling Catheter Indwelling Catheter Indwelling Catheter ABP, PAP, CO, CI - Last Documented Arterial Blood Pressure 132/59 Pulmonary Artery Pressure 38/33 Cardiac Output 5.8 Cardiac Index 2.9 - Exam PHYSICAL EXAM: VITAL SIGNS: As above GENERAL: Sitting up in bed, on mechanical ventilation HEENT: Conjunctivae normal. eyes normal. NECK: No JVD. No thyroid enlargement. CARDIOVASCULAR: S1, S2 muffled , positive systolic murmur. RESPIRATION: Breath sounds diminished in the bases,coarse. Occasional scattered fine crackles. No wheezes. Sternal wound with wound vac present ABDOMEN: Soft . No guarding. no masses palpable.Bowel sounds heard. Extremities: Positive edema PSYCHIATRY:/NERVOUS SYSTEM: Unable to assess as patient on mechanical ventilation Skin: Midsternal incision open,large amount of serosanguineous drainage,with packing, right medial buttock & right buttock skin tears, type II - III, Right lower arm Skin tear,type II, Lower back shearing injury with sloughing Microbiology 12/15/17 10:40 Bronchial Washings - Left Gram Stain - Final 12/15/17 10:40 Bronchial Washings - Left Bronchial Washings Culture - Final Rachana albicans 12/14/17 21:30 Sputum Gram Stain - Final 12/14/17 21:30 Sputum Sputum Culture - Final Rachana albicans 12/15/17 10:40 Bronchial Washings - Left Acid Fast Bacilli Smear - Final 12/15/17 10:40 Bronchial Washings - Left Acid Fast Bacilli Culture - Preliminary 12/15/17 10:40 Bronchial Washings - Left Fungal Culture - Preliminary 12/10/17 10:50 Chest Anaerobic Culture - Final 12/10/17 10:40 Chest Anaerobic Culture - Final 12/10/17 10:45 Chest Anaerobic Culture - Final 12/13/17 05:27 Urine,Catheterized Urine Culture - Final 12/10/17 10:40 Chest Gram Stain - Final 12/10/17 10:40 Chest Wound Culture - Final Serratia marcescens 12/10/17 10:45 Chest Gram Stain - Final 12/10/17 10:45 Chest Tissue Culture - Final Serratia marcescens 12/10/17 10:50 Chest Gram Stain - Final 12/10/17 10:50 Chest Tissue Culture - Final Serratia marcescens 12/10/17 10:50 Chest Acid Fast Bacilli Smear - Final 12/10/17 10:50 Chest Acid Fast Bacilli Culture - Preliminary 12/10/17 10:45 Chest Acid Fast Bacilli Smear - Final 12/10/17 10:45 Chest Acid Fast Bacilli Culture - Preliminary 12/10/17 10:50 Chest Fungal Culture - Preliminary 12/10/17 10:40 Chest Fungal Culture - Preliminary 12/10/17 10:45 Chest Fungal Culture - Preliminary 12/07/17 15:40 Chest Gram Stain - Final 12/07/17 15:40 Chest Wound Culture - Final Serratia marcescens 12/04/17 10:00 Urine,Voided Urine Culture - Final Escherichia coli Serratia marcescens 11/26/17 04:00 Sputum Gram Stain - Final 11/26/17 04:00 Sputum Sputum Culture - Final - Labs CBC & Chem 7: 12/20/17 04:53 12/20/17 04:53 Labs: Abnormal Lab Results - Last 24 Hours (Table) 12/20/17 12/20/17 12/20/17 Range/Units 04:53 04:53 06:35 WBC 14.4 H (3.8-10.6) k/uL RBC 2.73 L (3.80-5.40) m/uL Hgb 7.5 L (11.4-16.0) gm/dL Hct 23.6 L (34.0-46.0) % RDW 19.3 H (11.5-15.5) % Neutrophils # 13.0 H (1.3-7.7) k/uL Lymphocytes # 0.7 L (1.0-4.8) k/uL ABG pH (7.35-7.45) ABG HCO3 (21-25) mmol/L ABG Total CO2 (19-24) mmol/L ABG O2 Saturation (94-97) % Carbon Dioxide 34 H (22-30) mmol/L BUN 42 H (7-17) mg/dL Creatinine 0.50 L (0.52-1.04) mg/dL POC Glucose (mg/dL) 105 H (75-99) mg/dL Calcium 8.2 L (8.4-10.2) mg/dL AST 66 H (14-36) U/L Alkaline Phosphatase 127 H (38-126) U/L Total Protein 5.1 L (6.3-8.2) g/dL Albumin 2.2 L (3.5-5.0) g/dL 12/20/17 12/20/17 Range/Units 07:57 12:11 WBC (3.8-10.6) k/uL RBC (3.80-5.40) m/uL Hgb (11.4-16.0) gm/dL Hct (34.0-46.0) % RDW (11.5-15.5) % Neutrophils # (1.3-7.7) k/uL Lymphocytes # (1.0-4.8) k/uL ABG pH 7.47 H (7.35-7.45) ABG HCO3 33 H (21-25) mmol/L ABG Total CO2 34 H (19-24) mmol/L ABG O2 Saturation 99.2 H (94-97) % Carbon Dioxide (22-30) mmol/L BUN (7-17) mg/dL Creatinine (0.52-1.04) mg/dL POC Glucose (mg/dL) 109 H (75-99) mg/dL Calcium (8.4-10.2) mg/dL AST (14-36) U/L Alkaline Phosphatase (38-126) U/L Total Protein (6.3-8.2) g/dL Albumin (3.5-5.0) g/dL Microbiology - Last 24 Hours (Table) 12/15/17 10:40 Fungal Culture - Preliminary Bronchial Washings - Left Rachana albicans 12/10/17 10:40 Fungal Culture - Preliminary Chest 12/10/17 10:45 Fungal Culture - Preliminary Chest 12/10/17 10:50 Fungal Culture - Preliminary Chest Assessment and Plan Assessment: 1. Status post CABG with mitral valve replacement 2. Acute blood loss anemia with massive blood transfusions postoperatively, in a patient with history of GI bleed 3. Hypertension 4. Left subclavian stenosis 5. Proximal atrial fibrillation/flutter status post cardioversion with recurrence of atrial fibrillation 6. Acute Hypoxic respiratory failure, Re intubated. 7. Obesity, BMI 41.6 8. S/P PICC line placement 9. 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 Acute UTI Serratia marcescens, E. coli 11. Bilateral pleural effusions, improved with diuretics. Possible aspiration pneumonia, possible fluid overload. 12. Sternal wound debridement, culture growing Serratia marcescens, placement of wound VAC. 13. Pressure ulceration of back and buttocks, stage III 14. Diarrhea, ruling out C. difficile colitis. 15. Status post bronchoscopy with left lower lobe mucous plug discovered, cultures pending Plan: Continue on current medication regime , amiodarone, metoprolol , monitoring and symptomatic treatment. Maintain IV antibiotics, nebulized bronchodilators, steroids. Weaning trials in progress as per pulmonary. Sternal wound flap grafting pending for tomorrow. The impression and plan of care has been dictated as directed. : I performed a history and examination of this patient, discussed the same with the dictator. I agree with the dictator's note ,documented as a scribe. Any additional findings or plans will be noted.
[2017-12-20 18:27] LABS: Glucose,Whole Blood 105 mg/dL (75-99)
[2017-12-20] MEDS: SODIUM CHLORIDE 0.9% 1,000 ML IV SCH (21:12)
[2017-12-20] MEDS: ESCITALOPRAM 10 MG TAB PO SCH (21:13)
--- NOTE | 2017-12-20 21:23 | P.PN ---
Subjective Progress Note Date: 12/20/17 Principal diagnosis: Sternal wound dehiscence Pleasant 67-year-old female who has an extensive past medical history who is now 14 days postoperative from her open heart procedure it which point in time a mitral valve placement occurred, reverse saphenous vein coronary artery bypass grafting 1 to obtuse marginal, Maze procedure and ligation of the left atrial appendage all occurred interoperatively left ventricular wall tear occurred and was repaired. The patient has a known history of multiple medical troubles before her surgery that included her obesity, COPD and marked deconditioning. Patient has had difficulties recently that included urinary tract infection with E. coli and Serratia and has been treated with intravenous antibiotic therapy with Zosyn. She was having some improvement but then developed dehiscence of her sternal wound and there are plans for surgical debridement tomorrow wound culture showing gram-negative bacilli and with at the infectious diseases consultation was requested. The patient continues to have significant respiratory difficulties and is currently on BiPAP for support. Postoperatively the patient was hemodynamically unstable which made even turning of the patient not possible which has resulted in unavoidable areas of skin breakdown, that are now treatable given her improvement 12/10/2017 reveals the patient to be postoperative from the sternal wound debridement. The surgical note as well as discussion with the surgical team reveals evidence of poor bone quality and all of the sternal wires had pulled through her bony areas. Negative pressure therapy is in place. She is tolerating this well. Plastic surgery consult has been requested for reconstruction of her chest in the near future. Gram-negative bacilli growing from the sternal wound. She is quite comfortable after procedure, chest tube was placed of the left cavity and this is improved some left lung function and she seems less short of breath. The daughter is present and her questions were answered. 12/11/2017 reveals the patient to have had some respiratory distress today and is back on BiPAP at this time. She relates that her pain is under much significant control. Been no other new acute complaints are being made. 12/13/2017 the patient remains in the ICU she is currently on BiPAP but relates that she is quite comfortable. We will work with the nursing staff to change her VAC dressing at this time. await the plastic surgery timeline. 12/15/2017 reveals the patient to remain in intensive care unit, her status has worsened and that she developed flash pulmonary edema and respiratory failure requiring reintubation sedation mechanical ventilation. She underwent bronchoscopy today for removal of mucous plugs and to help with the collapsed left lower lobe. The patient has require some vasopressor support but is more stable this afternoon than earlier. She is sedated and comfortable. She has significant decline of hemoglobin is 7.6. Anticoagulation was held. Is being closely monitored by surgery and they await the plastic surgery intervention. 12/16/2017 cases briefly discussed with the cardiothoracic nurse practitioner in that the wound VAC is being changed today. It is unchanged with no difficulties. No further bleeding is noted. Plastic surgery evaluation apparently will occur tomorrow so the surgical plan can be devised. 12/20/2017 since last visit current thoracic has again change the wound VAC without difficulties. She tolerated it well. She remains on the ventilator at this point in time, does not appear to have any plans for weaning because she will have her plastic closure over open chest tomorrow. She's been hemodynamically stable with intermittent atrial flutter. No significant changes of oxygen requirements, drainage from the wound VAC is minimal as is drainage from her chest tube. Objective - Vital Signs Vital signs: Vital Signs Temp 99.4 F 12/20/17 16:00 Pulse 75 12/20/17 20:53 Resp 14 12/20/17 19:00 BP 116/54 12/19/17 10:00 Pulse Ox 100 12/20/17 19:00 Intake & Output 12/20/17 12/20/17 12/21/17 06:59 18:59 06:59 Intake Total 969.59 1116 63 Output Total 530 695 60 Balance 439.59 421 3 Weight 113.2 kg 113.2 kg Intake: IV 276 276 23 Pressure Bag 36 36 3 Sodium Chloride 0.9% 1, 240 240 20 000 ml @ 20 mls/hr IV . Q24H [facility] Rx#:[id number] Intake, IV Titration 93.59 200 Amount Fluconazole in NaCl,Iso- 100 Osm 200 mg In Saline 1 100ml.bag @ 100 mls/hr IVPB DAILY [facility] Rx#: [id number] Propofol 1,000 mg In 93.59 100 Empty Bag 1 bag @ Titrate IV .Q0M [facility] Rx#: [id number] Tube Feeding 600 640 40 Output: Chest Tube Drainage 0 0 Pleural Catheter Left 0 0 Drainage 0 0 Medial Chest Incision - 0 0 Woundvac Urine 530 695 60 Other: Voiding Method Indwelling Catheter Indwelling Catheter ABP, PAP, CO, CI - Last Documented Arterial Blood Pressure 125/50 Pulmonary Artery Pressure 38/33 Cardiac Output 5.8 Cardiac Index 2.9 - Exam Obese 67-year-old woman who is now intubated sedated and mechanically ventilated HEENT: Anicteric conjunctiva are pink and moist nasal mucosa grossly intact without significant lesions, there is no thrush. Oral mucosa is dry but no swapnil lesions could be seen Neck: The neck is supple without significant lymphadenopathy or thyromegaly. Lungs: Symmetrical air entry is noted. There is scattered crackles but no swapnil bronchial sounds Heart: Irregular with an audible S1 and S2 soft S4 no audible murmur no click or rub Chest: The patient's mid sternotomy incision has now been debrided and negative pressure therapy is in place. There is no significant tenderness. The drainage is being suctioned into the canister of the negative pressure system. Drainage is serous. Abdomen: Obese, Positive bowel sounds soft and nontender without palpable masses or organomegaly. There was no guarding or rebound. Extremities: The upper and lower extremities have evidence of edema harvest site is intact there is some bruising that is noted especially on the left groin area. IV sites are intact. Skin: There are no new lesions that are seen Neuro: Sedated while she is being mechanically ventilated - Labs CBC & Chem 7: 12/20/17 04:53 12/20/17 04:53 Labs: Abnormal Lab Results - Last 24 Hours (Table) 12/20/17 12/20/17 12/20/17 Range/Units 04:53 04:53 06:35 WBC 14.4 H (3.8-10.6) k/uL RBC 2.73 L (3.80-5.40) m/uL Hgb 7.5 L (11.4-16.0) gm/dL Hct 23.6 L (34.0-46.0) % RDW 19.3 H (11.5-15.5) % Neutrophils # 13.0 H (1.3-7.7) k/uL Lymphocytes # 0.7 L (1.0-4.8) k/uL ABG pH (7.35-7.45) ABG HCO3 (21-25) mmol/L ABG Total CO2 (19-24) mmol/L ABG O2 Saturation (94-97) % Carbon Dioxide 34 H (22-30) mmol/L BUN 42 H (7-17) mg/dL Creatinine 0.50 L (0.52-1.04) mg/dL POC Glucose (mg/dL) 105 H (75-99) mg/dL Calcium 8.2 L (8.4-10.2) mg/dL AST 66 H (14-36) U/L Alkaline Phosphatase 127 H (38-126) U/L Total Protein 5.1 L (6.3-8.2) g/dL Albumin 2.2 L (3.5-5.0) g/dL 12/20/17 12/20/17 12/20/17 Range/Units 07:57 12:11 18:25 WBC (3.8-10.6) k/uL RBC (3.80-5.40) m/uL Hgb (11.4-16.0) gm/dL Hct (34.0-46.0) % RDW (11.5-15.5) % Neutrophils # (1.3-7.7) k/uL Lymphocytes # (1.0-4.8) k/uL ABG pH 7.47 H (7.35-7.45) ABG HCO3 33 H (21-25) mmol/L ABG Total CO2 34 H (19-24) mmol/L ABG O2 Saturation 99.2 H (94-97) % Carbon Dioxide (22-30) mmol/L BUN (7-17) mg/dL Creatinine (0.52-1.04) mg/dL POC Glucose (mg/dL) 109 H 105 H (75-99) mg/dL Calcium (8.4-10.2) mg/dL AST (14-36) U/L Alkaline Phosphatase (38-126) U/L Total Protein (6.3-8.2) g/dL Albumin (3.5-5.0) g/dL Microbiology - Last 24 Hours (Table) 12/15/17 10:40 Fungal Culture - Preliminary Bronchial Washings - Left Rachana albicans 12/10/17 10:40 Fungal Culture - Preliminary Chest 12/10/17 10:45 Fungal Culture - Preliminary Chest 12/10/17 10:50 Fungal Culture - Preliminary Chest Laboratory Results WBC 14.4 k/uL (3.8-10.6) H 12/20/17 04:53 RBC 2.73 m/uL (3.80-5.40) L 12/20/17 04:53 Hgb 7.5 gm/dL (11.4-16.0) L 12/20/17 04:53 Hct 23.6 % (34.0-46.0) L 12/20/17 04:53 MCV 86.6 fL (80.0-100.0) 12/20/17 04:53 MCH 27.4 pg (25.0-35.0) 12/20/17 04:53 MCHC 31.6 g/dL (31.0-37.0) 12/20/17 04:53 RDW 19.3 % (11.5-15.5) H 12/20/17 04:53 Plt Count 151 k/uL (150-450) 12/20/17 04:53 Neutrophils % 90 % 12/20/17 04:53 Neutrophils % (Manual) 98 % 12/05/17 04:25 Lymphocytes % 5 % 12/20/17 04:53 Lymphocytes % (Manual) 1 % 12/05/17 04:25 Monocytes % 3 % 12/20/17 04:53 Monocytes % (Manual) 1 % 12/05/17 04:25 Eosinophils % 1 % 12/20/17 04:53 Basophils % 0 % 12/20/17 04:53 Myelocytes % 1 % 12/03/17 04:15 Neutrophils # 13.0 k/uL (1.3-7.7) H 12/20/17 04:53 Neutrophils # (Manual) 26.95 k/uL (1.3-7.7) H 12/05/17 04:25 Lymphocytes # 0.7 k/uL (1.0-4.8) L 12/20/17 04:53 Lymphocytes # (Manual) 0.28 k/uL (1.0-4.8) L 12/05/17 04:25 Monocytes # 0.5 k/uL (0-1.0) 12/20/17 04:53 Monocytes # (Manual) 0.28 k/uL (0-1.0) 12/05/17 04:25 Eosinophils # 0.1 k/uL (0-0.7) 12/20/17 04:53 Basophils # 0.0 k/uL (0-0.2) 12/20/17 04:53 Myelocytes # (Manual) 0.17 k/uL (0) H 12/03/17 04:15 Nucleated RBCs 0 /100 WBC (0-0) 12/05/17 04:25 Manual Slide Review Performed 12/05/17 04:25 Polychromasia Present 12/03/17 04:15 Hypochromasia Marked 12/20/17 04:53 Poikilocytosis Moderate 12/20/17 04:53 Anisocytosis Slight 12/20/17 04:53 Microcytosis Slight 12/17/17 04:45 Target Cells Present 12/03/17 04:15 PT 13.8 sec (9.0-12.0) H 12/17/17 04:45 INR 1.5 (<1.2) H 12/17/17 04:45 APTT 115.4 sec (22.0-30.0) H* 12/15/17 04:45 Fibrinogen 334 mg/dL (200-500) 11/26/17 04:22 Sample Site langley 12/20/17 07:57 ABG pH 7.47 (7.35-7.45) H 12/20/17 07:57 ABG pCO2 45 mmHg (35-45) 12/20/17 07:57 ABG pO2 108 mmHg (83-108) 12/20/17 07:57 ABG HCO3 33 mmol/L (21-25) H 12/20/17 07:57 ABG Total CO2 34 mmol/L (19-24) H 12/20/17 07:57 ABG O2 Saturation 99.2 % (94-97) H 12/20/17 07:57 ABG Base Excess 9.2 mmol/L 12/20/17 07:57 ABG Hematocrit 24 % (34.0-46.0) L 11/25/17 17:37 Robbi Test Yes 12/20/17 07:57 ABG Sodium 144 mmol/L (135-146) 11/25/17 17:37 ABG Potassium 3.8 mmol/L (3.4-4.5) 11/25/17 17:37 ABG Ionized Calcium 4.0 mg/dL (4.5-5.3) L 11/25/17 17:37 ABG Glucose 139 mg/dL (75-99) H 11/25/17 17:37 ABG Lactic Acid 2.8 mmol/L (0.5-1.6) H* 11/25/17 17:37 Hemoglobin 7.8 gm/dL (11.4-16.0) L 11/25/17 17:37 FiO2 40 % 12/20/17 07:57 Sodium 141 mmol/L (137-145) 12/20/17 04:53 Potassium 3.6 mmol/L (3.5-5.1) 12/20/17 04:53 Chloride 101 mmol/L (98-107) 12/20/17 04:53 Carbon Dioxide 34 mmol/L (22-30) H 12/20/17 04:53 Anion Gap 6 mmol/L 12/20/17 04:53 BUN 42 mg/dL (7-17) H 12/20/17 04:53 Creatinine 0.50 mg/dL (0.52-1.04) L 12/20/17 04:53 Est GFR (MDRD) Af Amer >60 (>60 ml/min/1.73 sqM) 12/07/17 04:00 Est GFR (MDRD) Non-Af >60 (>60 ml/min/1.73 sqM) 12/07/17 04:00 Est GFR (CKD-EPI)AfAm >90 (>60 ml/min/1.73 sqM) 12/20/17 04:53 Est GFR (CKD-EPI)NonAf >90 (>60 ml/min/1.73 sqM) 12/20/17 04:53 Glucose 90 mg/dL (74-99) 12/20/17 04:53 POC Glucose (mg/dL) 105 mg/dL (75-99) H 12/20/17 18:25 POC Glu Director Telehealth ID Joss Venera 12/20/17 18:25 Calcium 8.2 mg/dL (8.4-10.2) L 12/20/17 04:53 Ionized Calcium Bruce 4.7 mg/dL (4.5-5.3) 12/11/17 15:45 Phosphorus 3.0 mg/dL (2.5-4.5) 12/20/17 04:53 Magnesium 2.2 mg/dL (1.6-2.3) 12/20/17 04:53 Total Bilirubin 0.5 mg/dL (0.2-1.3) 12/20/17 04:53 AST 66 U/L (14-36) H 12/20/17 04:53 ALT 35 U/L (9-52) 12/20/17 04:53 Alkaline Phosphatase 127 U/L (38-126) H 12/20/17 04:53 Total Protein 5.1 g/dL (6.3-8.2) L 12/20/17 04:53 Albumin 2.2 g/dL (3.5-5.0) L 12/20/17 04:53 Arterial Blood Potassium 3.8 mmol/L (3.4-4.5) 11/25/17 17:37 Arterial Blood Glucose 139 mg/dL (75-99) H 11/25/17 17:37 Urine Color Yellow 12/04/17 10:00 Urine Appearance Cloudy (Clear) H 12/04/17 10:00 Urine pH 5.5 (5.0-8.0) 12/04/17 10:00 Ur Specific Kersey 1.015 (1.001-1.035) 12/04/17 10:00 Urine Protein Trace (Negative) H 12/04/17 10:00 Urine Glucose (UA) Negative (Negative) 12/04/17 10:00 Urine Ketones Negative (Negative) 12/04/17 10:00 Urine Blood Negative (Negative) 12/04/17 10:00 Urine Nitrite Negative (Negative) 12/04/17 10:00 Urine Bilirubin Negative (Negative) 12/04/17 10:00 Urine Urobilinogen <2.0 mg/dL (<2.0) 12/04/17 10:00 Ur Leukocyte Esterase Negative (Negative) 12/04/17 10:00 Urine RBC 7 /hpf (0-5) H 12/04/17 10:00 Urine WBC 1 /hpf (0-5) 12/04/17 10:00 Ur Squamous Epith Cells 8 /hpf (0-4) H 12/04/17 10:00 Urine Bacteria Occasional /hpf (None) H 12/04/17 10:00 Urine Mucus Rare /hpf (None) H 12/04/17 10:00 Fluid Source Bronchial Wash 12/15/17 10:40 Fluid Color Colorless 12/15/17 10:40 Fluid Appearance Cloudy 12/15/17 10:40 Fluid RBC 150 /uL 12/15/17 10:40 Fluid Nucleated Cells 6900 /uL 12/15/17 10:40 Fluid Polynuclear WBCs 95 % 12/15/17 10:40 Fluid Mononuclear WBCs 5 % 12/15/17 10:40 Vancomycin Trough 19.5 ug/mL 12/19/17 09:45 Random Vancomycin 21.2 ug/mL 12/16/17 04:15 Heparin-Ind Plt Ab Scrn 0.231 OD (<0.4) 11/29/17 04:50 Virus Source See Below 12/15/17 10:40 Viral Test See Below 12/15/17 10:40 Virus Analysis Interp See Below 12/15/17 10:40 Blood Type A Positive 12/14/17 10:10 Blood Type Recheck No 12/14/17 10:10 Antibody Screen NEGATIVE 12/14/17 10:10 Crossmatch See Detail 12/14/17 10:10 Transfuse Cryo [id number] 11/26/17 00:39 Transfuse Plasma 12/15/2017 12/15/17 05:51 Transfuse Platelets [id number] 11/25/17 14:55 Spec Expiration Date 12/17/2017 - 0 12/14/17 10:10 Microbiology 12/15/17 10:40 Bronchial Washings - Left Fungal Culture - Preliminary Rachana albicans 12/10/17 10:40 Chest Fungal Culture - Preliminary 12/10/17 10:45 Chest Fungal Culture - Preliminary 12/10/17 10:50 Chest Fungal Culture - Preliminary 12/15/17 10:40 Bronchial Washings - Left Gram Stain - Final 12/15/17 10:40 Bronchial Washings - Left Bronchial Washings Culture - Final Rachana albicans 12/14/17 21:30 Sputum Gram Stain - Final 12/14/17 21:30 Sputum Sputum Culture - Final Rachana albicans 12/15/17 10:40 Bronchial Washings - Left Acid Fast Bacilli Smear - Final 12/15/17 10:40 Bronchial Washings - Left Acid Fast Bacilli Culture - Preliminary 12/10/17 10:50 Chest Anaerobic Culture - Final 12/10/17 10:40 Chest Anaerobic Culture - Final 12/10/17 10:45 Chest Anaerobic Culture - Final 12/13/17 05:27 Urine,Catheterized Urine Culture - Final 12/10/17 10:40 Chest Gram Stain - Final 12/10/17 10:40 Chest Wound Culture - Final Serratia marcescens 12/10/17 10:45 Chest Gram Stain - Final 12/10/17 10:45 Chest Tissue Culture - Final Serratia marcescens 12/10/17 10:50 Chest Gram Stain - Final 12/10/17 10:50 Chest Tissue Culture - Final Serratia marcescens 12/10/17 10:50 Chest Acid Fast Bacilli Smear - Final 12/10/17 10:50 Chest Acid Fast Bacilli Culture - Preliminary 12/10/17 10:45 Chest Acid Fast Bacilli Smear - Final 12/10/17 10:45 Chest Acid Fast Bacilli Culture - Preliminary 12/07/17 15:40 Chest Gram Stain - Final 12/07/17 15:40 Chest Wound Culture - Final Serratia marcescens 12/04/17 10:00 Urine,Voided Urine Culture - Final Escherichia coli Serratia marcescens 11/26/17 04:00 Sputum Gram Stain - Final 11/26/17 04:00 Sputum Sputum Culture - Final Assessment and Plan (1) Severe mitral regurgitation Current Visit: Yes Status: Chronic Code(s): I34.0 - NONRHEUMATIC MITRAL ( VALVE) INSUFFICIENCY SNOMED Code(s): 58773576 (2) CAD (coronary artery disease) Current Visit: Yes Status: Chronic Code(s): I25.10 - ATHSCL HEART DISEASE OF [place] CORONARY ARTERY W/O ANG PCTRS SNOMED Code(s): 97455832 (3) Acute blood loss as cause of postoperative anemia Current Visit: Yes Status: Acute Code(s): D62 - ACUTE POSTHEMORRHAGIC ANEMIA SNOMED Code(s): 19779985173749795 (4) Pressure ulcer of contiguous region involving back and buttock, stage 3 Current Visit: Yes Status: Acute Code(s): L89.43 - PRESSR ULCER OF CONTIG SITE OF BACK, BUTTOCK AND HIP, STG 3 SNOMED Code(s): 807700811 (5) Sternal wound dehiscence Narrative/Plan: 67-year-old woman presents to Hospital for treatment of her severe mitral irritation. Underwent mitral valve replacement, coronary artery bypass grafting 1, Maze procedure and clipping of the left atrial appendage with a complication of the left ventricular wall tear. The patient has had a very protracted recovery she is now day 14 post operative and is still having difficulty with her respiratory status requiring BiPAP. The patient's nutritional status and underlying comorbidities have complicated her care. She now has evidence of the sternal dehiscence with evidence of gram negatives bacilli being found at the site. There is evidence of urinary tract infection with E. coli and Serratia. This Serratia species is somewhat resistant and consequently we'll alter the current antimicrobial therapy from Zosyn to meropenem to ensure coverage for other potential pathogens that are resistant that could be in the sternal wound while we await cultures. The patient will be going to the operating room tomorrow for debridement and wound VAC placement. The cultures were further direct the overall course of antibiotics. Urinary infection appears to be doing somewhat better. The patient fortunately is comfortable and doing well with her BiPAP. 12/10/2017 the patient is status post surgery and actually is feeling a bit better this afternoon than yesterday. Her pain is quite well controlled. She is not on BiPAP. She is less short of breath. Wound culture has verified the Serratia marcescens to the sternal wound. We'll constantly continue the current course of meropenem due to some of the resistance patterns or seeing with the species. Continue local care at this point time with the negative pressure system to the sternal wound. The plastic surgery consult is being requested for reconstruction of her chest. She will require a course of intravenous antibiotic therapy given her complex infection. Dual-lumen PICC is already in place. We'll repeat the discharge planners as to her place of rehab. 12/11/2017 the patient is metabolically stable but is having difficulties with her respiratory status and is now back on BiPAP which has been intermittent over the last multiple days. Negative pressure therapy remains intact and the sternum and we await the plastic surgery intervention. 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 Continue supportive care, and nutritional supplements as possible to improve for tissue healing. 12/13/2017 patient is on BiPAP. She is comfortable at this time. Receiving her intravenous antibiotic therapy without difficulties. At this time the surgeon present in a sterile fashion the wound VAC is removed. Surgeon evaluates and then the wound VAC is reapplied with 2 of the white foam, periwound protected with DuoDERM no difficulty with the seal. Merrem continues. 12/15/2017 the patient has had marked worsening of her status in that she had respiratory failure requiring reintubation and mechanical ventilation. She is now sedated and comfortable but has had some hemodynamic instability and is now back on vasopressor therapy. Bronchoscopy is performed and suctioning of mucous plugs as allowed some improvement of her pulmonary status. Further cultures are process. Meropenem and vancomycin continue for the isolated Serratia and concerns for resistant gram-positive infection at this time. Plastic surgery evaluation is in process and surgical plans for later this week appear to be possible. 12/16/2017 reveals the patient to be stable from the last 24 hours. Her ventilatory settings are similar. She's currently not on vasopressor therapy. She is tolerating current antibiotic therapy well with no difficulties with rash and diarrhea or marked changes of her hematological parameters. She's had no further active bleeding. Sputum culture with gram-positive cocci seen vancomycin was added we await final cultures. 12/20/2017 patient remained stable and is being prepped for her sternal reconstruction surgery tomorrow. She's not on vasopressor therapy, and vent settings are stable. Most recent bronchoscopy showed mucous plug no evidence of any new pathogens except yeast was found likely from upper airways. Fluconazole was added given her significant risks, although fungal pneumonia is not occurring at this time. At the time of reconstruction repeat samplings from her sternum will be helpful to help direct the course of antibiotic therapy , pathology and culture of the sternum will be helpful. Remains on the meropenem and vancomycin at this time. Current Visit: Yes Status: Acute Code(s): T81.32XA - DISRUPTION OF INTERNAL OPERATION (SURGICAL) WOUND, NEC, INIT SNOMED Code(s): 51191326
[2017-12-20] MEDS: SENNOSIDES-DOCUSATE SODIUM 1 EACH TAB PO SCH (21:24)
[2017-12-20 23:47] LABS: Glucose,Whole Blood 96 mg/dL (75-99)
[2017-12-21] MEDS: IPRATROPIUM-ALBUTEROL 3 ML NEB INHALATION SCH ×6 (00:12→20:08)
[2017-12-21] MEDS: MEROPENEM 1 GM in SODIUM CHLORIDE 0.9% 100 ML IVPB SCH ×3 (00:46→17:00)
[2017-12-21] MEDS: LACTOBACILLUS ACIDOPH & BULGAR 1 EACH PACKET PO SCH ×4 (00:46→22:42)
[2017-12-21] MEDS: INSULIN ASPART 100 UNIT/ML 1 ML 10 ML VIAL SQ SCH ×4 (00:46→18:26)
[2017-12-21] MEDS: PROPOFOL 1,000 MG in EMPTY BAG 1 BAG IV SCH ×2 (00:47→06:34)
[2017-12-21 04:20] LABS: ABG HCO3 27 mmol/L (21-25); ABG PCO2 36 mmHg (35-45); ABG PH 7.49 (7.35-7.45); ABG PO2 148 mmHg (83-108); ABG TCO2 29 mmol/L (19-24)
[2017-12-21 05:02] LABS: Anisocytosis Slight; Basophils % (A) 0 %; Eosinophils # (A) 0.2 k/uL (0-0.7); Eosinophils % (A) 1 %; HCT 24.9 % (34.0-46.0); HGB 7.6 gm/dL (11.4-16.0); Hypochromasia Marked; Lymphocytes # (A) 0.7 k/uL (1.0-4.8); Lymphocytes % (A) 6 %; MCH 26.4 pg (25.0-35.0); MCHC 30.4 g/dL (31.0-37.0); MCV 87.1 fL (80.0-100.0); Mean Platelet Volume 7.6; Monocytes # (A) 0.4 k/uL (0-1.0); Monocytes % (A) 4 %; Neutrophils # (A) 10.2 k/uL (1.3-7.7); Neutrophils % (A) 88 %; Platelet Count 150 k/uL (150-450); Poikilocytosis Slight; RBC 2.86 m/uL (3.80-5.40); RDW 19.7 % (11.5-15.5); WBC 11.7 k/uL (3.8-10.6)
[2017-12-21 05:11] LABS: Albumin 2.2 g/dL (3.5-5.0); Anion Gap 5 mmol/L; Calcium 8.1 mg/dL (8.4-10.2); Carbon Dioxide 32 mmol/L (22-30); Chloride 103 mmol/L (98-107); Glucose 100 mg/dL (74-99); Sodium 140 mmol/L (137-145); Total Bilirubin 0.6 mg/dL (0.2-1.3)
[2017-12-21 05:16] LABS: Potassium 4.1 mmol/L (3.5-5.1); Total Protein 5.5 g/dL (6.3-8.2)
[2017-12-21 05:17] LABS: ALT 40 U/L (9-52); AST 84 U/L (14-36); Alkaline Phosphatase 110 U/L (38-126); Blood Urea Nitrogen 41 mg/dL (7-17); Magnesium 2.2 mg/dL (1.6-2.3)
[2017-12-21 05:34] LABS: INR 1.1 (<1.2); Prothrombin Time 10.8 sec (9.0-12.0)
[2017-12-21 05:51] LABS: Partial Thromboplastin Time 23.9 sec (22.0-30.0)
[2017-12-21] MEDS: BUDESONIDE 1 MG/2 ML NEBU INHALATION SCH ×2 (07:37→20:08)
--- NOTE | 2017-12-21 08:25 | XR ---
EXAMINATION TYPE: XR chest 1V portable DATE OF EXAM: 12/21/2017 COMPARISON: Prior chest x-ray 12/20/2017 HISTORY: Status post cardiac surgery, intubated TECHNIQUE: Single frontal view of the chest is obtained. FINDINGS: Endotracheal and NG tube are overlying appropriate positions. Patient is post cardiac valv e replacement, heart remains enlarged, atrial appendage clipping again noted. Left-sided chest tube, subclavian stent, left-sided PICC line all again noted. No evident pneumothorax. Bibasilar increased density obscures the hemidiaphragms. Pulmonary vascularity and interstitium are prominent. IMPRESSION: Correlate for congestive heart failure with possible effusions, pneumonia not excluded. Follow-up recommended.
[2017-12-21] MEDS: PANTOPRAZOLE 40 MG TABLET PO SCH (08:29)
[2017-12-21] MEDS: CHLORHEXIDINE GLUCONATE 15 ML CUP MUCOUS MEM SCH ×2 (08:29→20:04)
[2017-12-21] MEDS: AMIODARONE 200 MG TAB PO SCH ×2 (08:29→20:04)
[2017-12-21] MEDS: METOPROLOL TARTRATE 50 MG TAB PO SCH ×2 (08:29→22:42)
[2017-12-21] MEDS: ATORVASTATIN 40 MG TAB PO SCH (08:30)
[2017-12-21 08:37] LABS: Glucose,Whole Blood 67 mg/dL (75-99)
[2017-12-21 08:37] LABS: Glucose,Whole Blood 107 mg/dL (75-99)
--- NOTE | 2017-12-21 10:07 | P.PN ---
Subjective Progress Note Date: 12/21/17 Principal diagnosis: Status post one-vessel bypass grafting and mitral valve replacement Progress note dated 11/29/2017 This is a 67-year-old female status post one-vessel bypass grafting and mitral valve replacement. She apparently had surgery on the . Today is postop day #3. The patient currently remains on the mechanical ventilator. Her vent settings are the assist control mode rate of 1210 of I am is 550 FiO2 50% PEEP of 5. Arterial blood gases show a PaO2 of 135 a PaCO2 of 36 and a pH of 7.47. I'm to make a few changes including bumping the rate up from 12 to 20, and decreasing the tidal volume from 550 down to 400, and dropping the FiO2 from 50- 40%. The patient may not be weaned of old low because she remains on insulin drip at 1 unit per hour, Primacor 0.2 mics per kilogram per minute, norepinephrine at 2 mics per minute, half normal saline at 30 mL an hour and propofol at 25 g kilogram per minute. Chest x-rays consistent with fluid overload but bibasilar infiltrates and small effusions and microbiology is negative. The rest of the labs medications and x-rays are all reviewed. Progress note dated 11/30/2017 This is a 67-year-old female status post one-vessel bypass grafting and mitral valve replacement. She had surgery on the . She is postop day #4. She remains on mechanical ventilator. Yesterday, her chest x-ray showed evidence of fluid overload. She did get some diuretics. Today's chest x-ray still shows evidence of fluid overload although it might be slightly improved. She's currently still on the mechanical ventilator on the assist control mode, rate of 26, tidal volume 400, PEEP of 8, FiO2 40%. The patient's arterial blood gases show a PaO2 of 94 and pH 7.46 in a PaCO2 of 41. The patient will get a daily eruption of sedation and a spontaneous breathing trial. The patient remains on norepinephrine at 3 mcg/m, propofol at 30 mics per kilogram per minute, Primacor 0.2 mics per kilogram per minute, half normal saline IV at 15 mL an hour and vital 1.2 at 60 with a goal of 60 mL an hour. The patient failed her spontaneous breathing trial yesterday very quickly, and afterwards, she became dyssynchronous with the ventilator and I had to bump up the PEEP level to 8 and increase her respiratory rate to 26. We also dropped the tidal volume down to 400. She is much more in synchrony today. Progress note dated 12/01/2017 This is a 67-year-old female who is postop day #5, status post one-vessel bypass grafting and mitral valve replacement. She also has a history of postoperative respiratory failure with failure to wean. She was extubated yesterday though. Chest x-ray has evidence of fluid overload which actually is improved. In addition, the patient had acute blood loss anemia requiring blood transfusion postsurgically, hypertension severe mitral regurgitation left subclavian stenosis paroxysmal atrial fibrillation GI bleed and obesity. Yesterday, post extubation we gave the patient 1 shot of Solu-Medrol 60 mg IV push and also put her on BiPAP at 14/5 and 40%. Chest x-ray does show improvement. Today her hemoglobin is below 7 and she'll receive 1 unit of blood followed by some Lasix IV. In addition, I may add on some IV site Medrol and a smaller dose than normal and also some Pulmicort 1 mg twice a day. Progress note dated 12/02/2017 67-year-old female who is postop day #6 status post single-vessel bypass grafting and mitral valve replacement. The patient has been doing very well the last day and a half to 2 days. She has a history of postoperative respiratory failure and initially, failure to wean. She was extubated 2 days ago. She has had to use of BiPAP on and off since that time. She did receive 1 unit of PRBCs yesterday followed by some Lasix 40 mg IV push. Her chest x- ray my opinion still so-so some fluid overload with a small pool of pleural effusion. Other than that, the patient seemed be doing relatively well. She has a history of hypertension severe mitral regurgitation blood loss anemia following surgery left subclavian stenosis paroxysmal atrial fibrillation GI bleed and obesity. This morning, she'll come off the BiPAP and go back to nasal O2. She prefers a nasal O2 over the BiPAP device. She may have had an episode of aspiration last night. Speech pathology was consulted. In addition , I did check for a DVT in the right upper extremity and the Doppler was negative. Progress note dated 12/03/2017 67-year-old female postop day #7, status post single-vessel bypass grafting and mitral valve replacement. The patient has been doing relatively well although this morning she was a bit more short of breath. Chest x-ray does show some fluid overload. She's been on and off of BiPAP. This morning she was on O2 nasal cannula at 3 L. The cardiothoracic practitioner thought she was a bit more short of breath I went and saw her. I looked at her chest x-ray. We asked her to go back on BiPAP at 14 and 5 and 40% and we also gave her Lasix 60 mg IV push. She seemed be doing a lot better now. She's not receiving any IV fluids. Chest x-ray does show fluid overload. Again the Lasix was given this morning. She was a bit to This morning. Breathing about 25 times a minute. No swapnil distress. In addition, she has a history of hypertension severe mitral regurgitation blood loss anemia following her open heart surgery, left subclavian artery stenosis paroxysmal atrial fibrillation GI bleed and obesity. Progress note dated 12/04/2017 67-year-old female, postop day #8, status post single-vessel bypass grafting and mitral valve replacement. The patient's overall situation is been reasonable. She seemed to do do better while she is on BiPAP therapy. When she is a bit more short of breath, she does poorly when she's not on BiPAP. Chest x-ray shows some fluid overload. She has some cephalization to the upper lobes. In addition, she is either consolidation atelectasis or infiltrates in the lower lobes. In addition, probably has some pleural effusions bilaterally. Currently she is on 7 L high flow. She's not receiving any IV fluids. When she is on BiPAP, she is on settings of 14 and 5 and 40%. She did receive some Lopressor for atrial fibrillation with RVR. Cardiothoracic surgery ask about antibiotics for possible pneumonia. Is not unreasonable to add some antibiotics to her regimen. She may have some pneumonia hiding in the lung spaces bilaterally. She isn't producing any phlegm. There's been no fever or chills. Other than that, she is doing reasonably well. Labs x-rays a medications are all reviewed. Progress note dated 12/20/2017 This is a 67-year-old female here in the hospital since November 25. The patient had a one-vessel bypass on the any mitral valve repair/replacement as well as a modified maze procedure on the . She was initially extubated on November 30 of BiPAP. When I left her last, which was on December 04, she was postop day #8 status post bypass grafting and mitral valve replacement. She seemed to do pretty well at that time on BiPAP therapy. Since that time, she's had a cardioversion on December 07 a dehiscence of her sternal wound on December 08 and a sister neck to me on December 10. She currently remains intubated. She has been on PSV 10 CPAP and yesterday she spent 10-12 hours on the settings. She apparently is going for a flap repair on December 21 which is tomorrow. She's getting saline IV at KVO and vital high protein at 40. Her vent settings include the assist control mode rate of 14 tidal volume 500 FiO2 40% PEEP of 5. Arterial blood gases show a PaO2 of 108 a PaCO2 of 45 and a pH of 7.47. I'm inclined not to wean her today given the fact that she'll be going for a flap repair tomorrow. In addition, her respiratory rates a bit high in her heart rate is high. We will go do a daily interruption of sedation and attempt a spontaneous breathing trial. Progress note dated 12/21/2017 This is a 67-year-old female here in the hospital since every . The patient had a one-vessel bypass on the and mitral valve replacement. She also had a modified maze procedure on the same day. She was initially extubated on eic 2 BiPAP. When I left her last, she was doing recently well on and off of BiPAP. Currently, the patient is going to the operating room today for a flap repair to be done by the plastic surgeon. The patient had a cardioversion on December 07, a dehiscence of her sternal incision on December 08, and a sternectomy on December 10. Currently, she is on the assist control mode with a tidal volume 500, a rate of 14, and FiO2 of 40% to be reduced down to 30%, and a PEEP of 5. Arterial blood gases show a PaO2 of 148, a PaCO2 of 36 and a pH of 7.49. The patient's on a saline IV at 20 mL an hour, propofol at 30 mics per kilogram per minute tube feeds which are on hold for the surgery. Again she is going to have a flap repair today. Chest x-ray shows similar changes to yesterday. Objective - Vital Signs Vital signs: Vital Signs Temp 98.9 F 12/21/17 08:00 Pulse 75 12/21/17 09:00 Resp 14 12/21/17 09:00 BP 116/54 12/19/17 10:00 Pulse Ox 98 12/21/17 09:00 Intake & Output 12/20/17 12/21/17 12/21/17 18:59 06:59 18:59 Intake Total 1116 1559 36 Output Total 695 495 75 Balance 421 1064 -39 Weight 113.2 kg 112.8 kg Intake: IV 276 399 36 Meropenem 1 gm In Sodium 100 Chloride 0.9% 100 ml @ 100 mls/hr IVPB Q8HR [facility] Rx#:[id number] Pressure Bag 36 39 6 Sodium Chloride 0.9% 1, 240 260 30 000 ml @ 20 mls/hr IV . Q24H [facility] Rx#:[id number] Intake, IV Titration 200 200 Amount Fluconazole in NaCl,Iso- 100 Osm 200 mg In Saline 1 100ml.bag @ 100 mls/hr IVPB DAILY [facility] Rx#: [id number] Propofol 1,000 mg In 100 200 Empty Bag 1 bag @ Titrate IV .Q0M [facility] Rx#: [id number] Oral 100 Tube Feeding 640 680 0 Other 180 Output: Chest Tube Drainage 0 0 0 Pleural Catheter Left 0 0 0 Drainage 0 0 0 Medial Chest Incision - 0 0 0 Woundvac Urine 695 495 75 Other: Voiding Method Indwelling Catheter Indwelling Catheter Indwelling Catheter ABP, PAP, CO, CI - Last Documented Arterial Blood Pressure 99/38 Pulmonary Artery Pressure 38/33 Cardiac Output 5.8 Cardiac Index 2.9 - Exam No acute distress, The patient's currently intubated and on the ventilator. HEENT examination is grossly unremarkable. Mucous membranes are moist. No oral lesions. Neck supple. Full range of motion. No adenopathy thyromegaly or neck vein distention. Cardiovascular examination reveals regular rhythm rate. S1-S2 normal. No S3 or S4. No discernible murmur noted. Lungs reveal very coarse bilateral breath sounds. Her sounds are equal bilaterally. No wheezes. A few scattered crackles. Abdomen soft bowel sounds are heard. No masses or tenderness. Extremities are intact. No cyanosis or clubbing. There is slight edema. Skin is without rash or lesion. Neurologic examination is difficult to assess - Labs CBC & Chem 7: 12/21/17 04:50 12/21/17 04:50 Labs: Abnormal Lab Results - Last 24 Hours (Table) 12/20/17 12/20/17 12/21/17 Range/Units 12:11 18:25 04:18 WBC (3.8-10.6) k/uL RBC (3.80-5.40) m/uL Hgb (11.4-16.0) gm/dL Hct (34.0-46.0) % MCHC (31.0-37.0) g/dL RDW (11.5-15.5) % Neutrophils # (1.3-7.7) k/uL Lymphocytes # (1.0-4.8) k/uL ABG pH 7.49 H (7.35-7.45) ABG pO2 148 H (83-108) mmHg ABG HCO3 27 H (21-25) mmol/L ABG Total CO2 29 H (19-24) mmol/L ABG O2 Saturation 100.0 H (94-97) % Carbon Dioxide (22-30) mmol/L BUN (7-17) mg/dL Creatinine (0.52-1.04) mg/dL Glucose (74-99) mg/dL POC Glucose (mg/dL) 109 H 105 H (75-99) mg/dL Calcium (8.4-10.2) mg/dL AST (14-36) U/L Total Protein (6.3-8.2) g/dL Albumin (3.5-5.0) g/dL 12/21/17 12/21/17 12/21/17 Range/Units 04:50 04:50 08:34 WBC 11.7 H (3.8-10.6) k/uL RBC 2.86 L (3.80-5.40) m/uL Hgb 7.6 L (11.4-16.0) gm/dL Hct 24.9 L (34.0-46.0) % MCHC 30.4 L (31.0-37.0) g/dL RDW 19.7 H (11.5-15.5) % Neutrophils # 10.2 H (1.3-7.7) k/uL Lymphocytes # 0.7 L (1.0-4.8) k/uL ABG pH (7.35-7.45) ABG pO2 (83-108) mmHg ABG HCO3 (21-25) mmol/L ABG Total CO2 (19-24) mmol/L ABG O2 Saturation (94-97) % Carbon Dioxide 32 H (22-30) mmol/L BUN 41 H (7-17) mg/dL Creatinine 0.41 L (0.52-1.04) mg/dL Glucose 100 H (74-99) mg/dL POC Glucose (mg/dL) 67 L (75-99) mg/dL Calcium 8.1 L (8.4-10.2) mg/dL AST 84 H (14-36) U/L Total Protein 5.5 L (6.3-8.2) g/dL Albumin 2.2 L (3.5-5.0) g/dL 12/21/17 Range/Units 08:35 WBC (3.8-10.6) k/uL RBC (3.80-5.40) m/uL Hgb (11.4-16.0) gm/dL Hct (34.0-46.0) % MCHC (31.0-37.0) g/dL RDW (11.5-15.5) % Neutrophils # (1.3-7.7) k/uL Lymphocytes # (1.0-4.8) k/uL ABG pH (7.35-7.45) ABG pO2 (83-108) mmHg ABG HCO3 (21-25) mmol/L ABG Total CO2 (19-24) mmol/L ABG O2 Saturation (94-97) % Carbon Dioxide (22-30) mmol/L BUN (7-17) mg/dL Creatinine (0.52-1.04) mg/dL Glucose (74-99) mg/dL POC Glucose (mg/dL) 107 H (75-99) mg/dL Calcium (8.4-10.2) mg/dL AST (14-36) U/L Total Protein (6.3-8.2) g/dL Albumin (3.5-5.0) g/dL Microbiology - Last 24 Hours (Table) 12/15/17 10:40 Fungal Culture - Preliminary Bronchial Washings - Left Rachana albicans 12/10/17 10:40 Fungal Culture - Preliminary Chest 12/10/17 10:45 Fungal Culture - Preliminary Chest 12/10/17 10:50 Fungal Culture - Preliminary Chest Assessment and Plan Assessment: Assessment Postop day #23 status post one-vessel bypass grafting and mitral valve replacement Postoperative respiratory failure with failure to wean, with extubation occurring on 11/30/2017 Status post cardioversion on December 07 Status post wound dehiscence on December 08 Status post sternotomy on December 10 Anticipated flap repair on 12/21/2017 Reintubation and mechanical ventilation with failure to wean Chest x-ray evidence of fluid overload Acute blood loss anemia requiring blood transfusion History of hypertension History of severe mitral regurgitation History of left subclavian stenosis Paroxysmal atrial fibrillation History of GI bleed Obesity Possible aspiration with aspiration pneumonia Plan: Plan dated 11/29/2017 I will make some vent changes today including repeat increasing the rate from 12 -20, dropping the time of I'm down from 550 mL down to 400 mL and also reducing the FiO2 40%. We'll see if we can wean her off the norepinephrine holding propofol and do a daily eruption of sedation to evaluate for spontaneous breathing trial. Microbiology is negative. Labs x-rays and medications all reviewed. Prognosis is guarded. Additional recommendations and suggestions are forthcoming. I believe she would benefit from some diuretics. Blood gases are reviewed. Plan dated 11/30/2017 The patient will again have a daily eruption of sedation with a spontaneous breathing trial. She still remains on a number of different IV medications including norepinephrine, fall, Primacor. Arterial blood gases today are very reasonable. Her vent settings were adjusted yesterday. She's getting nourishment. We'll continue to follow closely. Labs x-rays a medications are reviewed. Hopeful improvement in the next day or so and eventual extubation. Plan dated 11/23/2017 The patient seems to be doing a bit better. Her chest x-ray certainly improved. She'll receive 1 unit of blood. She feels better. She still on BiPAP. She has significant edema throughout. Chest x-ray is improved. I do agree with 1 unit of blood followed by Salma. We'll continue to follow closely. Medications x-rays and labs are reviewed. Plan dated 12/02/2017 The patient will come off the BiPAP morning go back on nasal O2. Speech pathology was consulted. Chest x-ray looks about the same or slightly better. Still showing a bit of fluid overload. In addition, a Doppler of the right upper extremity was negative for DVT. The patient otherwise seems be doing reasonably well. We'll continue to follow. She is on Primacor and 0.2 mics per kilogram per minute and a half normal saline IV at KVO. BiPAP settings are 14/5 and 40%. Critical care time 34 minutes The patient is doing better after the BiPAP was placed on her. The patient also received Lasix 60 mg IV push. The patient's chest x-ray labs and medications are all reviewed. She's not receiving any additional fluid. We'll continue to follow. Prognosis is guarded. Critical care time 34 minutes. Plan dated 12/04/2017 The patient seemed be doing about the same as she was yesterday. Chest x-ray, in my opinion still shows evidence of fluid overload. She has cephalization and bilateral pleural effusions. Is a possibility she could have pneumonia. She's not producing any phlegm. She's been afebrile. I will add some Zosyn to her regimen. It certainly empiric. She should spend some time on BiPAP as well as a nasal O2. She seemed to do better on the BiPAP at 14 and 5 and 40%. She did have to receive some Lopressor for atrial fibrillation and RVR. I'm sure that's contributing to her shortness of breath as well. She does not have a lot of reserve. Prognosis is guarded. Plan dated 12/20/2017 I'm sorry to see that the patient still here in the ICU. It appears the patient 's had a number of different complications since I saw her last on December 04 including but not limited to cardioversion sternal dehiscence MrTy neck to me and anticipated flat repair tomorrow. The patient will be given a daily eruption of sedation and a spontaneous breathing trial. I'm not hopeful given her chronic illness for the current time. Additional recommendations and suggestions are forthcoming. In my opinion, we'll need a tracheostomy. We'll continue to follow. Prognosis is guarded. Meds labs and x-rays are all reviewed. Critical care time 31 minutes Plan dated 12/21/2017 The patient down is going to go to the operating room today for a flap repair by the plastic surgeon. No weaning today. Overall prognosis remains guarded. Labs x-rays a medications are all reviewed. We will continue to follow the patient and provide full supportive care with hopeful full recovery. Critical care time 30 minutes Time with Patient: Greater than 30
[2017-12-21] MEDS: FLUCONAZOLE IN NACL,ISO-OSM 200 MG in SALINE 1 100ML.BAG IVPB SCH (10:09)
--- NOTE | 2017-12-21 10:16 | P.PN ---
Subjective Progress Note Date: 12/21/17 Principal diagnosis: Severe mitral regurgitation. Coronary artery disease. Paroxysmal atrial fibrillation on Coumadin for anticoagulation. Recent hospitalization for lower GI bleed, duodenal ulcer. History of left subclavian stenosis with stent placement 2014 with recent discovery of critical re-in-stent stenosis. Previous tobacco dependence with preoperative FEV1 60% of predicted. Hypertension. Hyperlipidemia. Gallbladder disease. Family history of heart disease. Preoperative nasal swab positive for MRSA. Preoperative anemia. POD #26 mitral valve replacement using a 25 mm Ribera bioprosthetic tissue valve. Coronary artery bypass grafting 1, reverse saphenous vein graft to the obtuse marginal artery. Maze procedure. Endoscopic harvesting of the right greater saphenous vein. Epi-aortic ultrasound. Intraoperative transesophageal echocardiogram. Ligation of the left atrial appendage using a 40 mm AtriClip. Intraoperative left ventricular wall tear, an unexpected but potential outcome of surgery Acute blood loss anemia, and expected outcome given patient's preoperative anemia and intraoperative bleeding. Postoperative prolonged mechanical ventilation secondary to hemodynamic instability, and unexpected but potential outcome of surgery given the extensive nature of her perioperative course Sternal incision dehiscence, a possible outcome of surgery given patient's obesity, nutrition status, debility POD #11 sternal wound debridement with placement of wound VAC. Postoperative left lower lobe collapse secondary to mucous plugging, and unexpected but potential outcome of surgery. Bronchial washings positive for Rachana species. POD #6 bronchoscopy and bronchoalveolar lavage of the left lower lobe and extraction of mucous plug Patient's currently lying in bed in no acute distress on mechanical ventilation. Remains in sinus rhythm this morning, going to the OR today for sternal flap repair. Objective - Vital Signs Vital signs: Vital Signs Temp 98.9 F 12/21/17 08:00 Pulse 75 12/21/17 09:00 Resp 14 12/21/17 09:00 BP 116/54 12/19/17 10:00 Pulse Ox 98 12/21/17 09:00 Intake & Output 12/20/17 12/21/17 12/21/17 18:59 06:59 18:59 Intake Total 1116 1559 36 Output Total 695 495 75 Balance 421 1064 -39 Weight 113.2 kg 112.8 kg Intake: IV 276 399 36 Meropenem 1 gm In Sodium 100 Chloride 0.9% 100 ml @ 100 mls/hr IVPB Q8HR [facility] Rx#:[id number] Pressure Bag 36 39 6 Sodium Chloride 0.9% 1, 240 260 30 000 ml @ 20 mls/hr IV . Q24H [facility] Rx#:[id number] Intake, IV Titration 200 200 Amount Fluconazole in NaCl,Iso- 100 Osm 200 mg In Saline 1 100ml.bag @ 100 mls/hr IVPB DAILY [facility] Rx#: [id number] Propofol 1,000 mg In 100 200 Empty Bag 1 bag @ Titrate IV .Q0M [facility] Rx#: [id number] Oral 100 Tube Feeding 640 680 0 Other 180 Output: Chest Tube Drainage 0 0 0 Pleural Catheter Left 0 0 0 Drainage 0 0 0 Medial Chest Incision - 0 0 0 Woundvac Urine 695 495 75 Other: Voiding Method Indwelling Catheter Indwelling Catheter Indwelling Catheter ABP, PAP, CO, CI - Last Documented Arterial Blood Pressure 99/38 Pulmonary Artery Pressure 38/33 Cardiac Output 5.8 Cardiac Index 2.9 - Constitutional General appearance: Present: no acute distress, obese - Respiratory Details: Lungs sounds diminished bilaterally. Respirations even, nonlabored. Continues to be on mechanical ventilation. Current settings FiO2 40%, tidal 500, respiratory rate 14, PEEP 5. ABGs this morning 7.49/36/148/27/4.0/100% on 40% FiO2. Left pleural chest tube to continuous wall suction, no drainage in the last 24 hours. - Cardiovascular Details: S1, S2 present. Regular rate and rhythm, sinus rhythm on telemetry. Open sternum with wound VAC in place. Palpable peripheral pulses bilaterally. Generalized edema still present. Mammary support, antiembolism stockings, SCDs present. Right brachial arterial line, left brachial PICC line present. - Gastrointestinal Gastrointestinal Comment(s): Abdomen soft, nontender, nondistended. Active bowel sounds 4 quadrants. OG tube present. - Genitourinary Genitourinary Comment(s): Mason present draining clear, yellow urine. Output 30-45 mL per hour overnight. - Integumentary Integumentary Comment(s): Skin is warm and dry. Open chest with wound VAC in place currently. Sacral area stage II ulcer with local wound care. - Neurologic Neurologic Comment(s): Even on sedation patient does open her eyes and follows commands. - Musculoskeletal Musculoskeletal: Present: generalized weakness - Psychiatric Psychiatric Comment(s): Sedated on propofol. - Allied health notes Allied health notes reviewed: nursing - Labs CBC & Chem 7: 12/21/17 04:50 12/21/17 04:50 Labs: Abnormal Lab Results - Last 24 Hours (Table) 12/20/17 12/20/17 12/21/17 Range/Units 12:11 18:25 04:18 WBC (3.8-10.6) k/uL RBC (3.80-5.40) m/uL Hgb (11.4-16.0) gm/dL Hct (34.0-46.0) % MCHC (31.0-37.0) g/dL RDW (11.5-15.5) % Neutrophils # (1.3-7.7) k/uL Lymphocytes # (1.0-4.8) k/uL ABG pH 7.49 H (7.35-7.45) ABG pO2 148 H (83-108) mmHg ABG HCO3 27 H (21-25) mmol/L ABG Total CO2 29 H (19-24) mmol/L ABG O2 Saturation 100.0 H (94-97) % Carbon Dioxide (22-30) mmol/L BUN (7-17) mg/dL Creatinine (0.52-1.04) mg/dL Glucose (74-99) mg/dL POC Glucose (mg/dL) 109 H 105 H (75-99) mg/dL Calcium (8.4-10.2) mg/dL AST (14-36) U/L Total Protein (6.3-8.2) g/dL Albumin (3.5-5.0) g/dL 12/21/17 12/21/17 12/21/17 Range/Units 04:50 04:50 08:34 WBC 11.7 H (3.8-10.6) k/uL RBC 2.86 L (3.80-5.40) m/uL Hgb 7.6 L (11.4-16.0) gm/dL Hct 24.9 L (34.0-46.0) % MCHC 30.4 L (31.0-37.0) g/dL RDW 19.7 H (11.5-15.5) % Neutrophils # 10.2 H (1.3-7.7) k/uL Lymphocytes # 0.7 L (1.0-4.8) k/uL ABG pH (7.35-7.45) ABG pO2 (83-108) mmHg ABG HCO3 (21-25) mmol/L ABG Total CO2 (19-24) mmol/L ABG O2 Saturation (94-97) % Carbon Dioxide 32 H (22-30) mmol/L BUN 41 H (7-17) mg/dL Creatinine 0.41 L (0.52-1.04) mg/dL Glucose 100 H (74-99) mg/dL POC Glucose (mg/dL) 67 L (75-99) mg/dL Calcium 8.1 L (8.4-10.2) mg/dL AST 84 H (14-36) U/L Total Protein 5.5 L (6.3-8.2) g/dL Albumin 2.2 L (3.5-5.0) g/dL 12/21/17 Range/Units 08:35 WBC (3.8-10.6) k/uL RBC (3.80-5.40) m/uL Hgb (11.4-16.0) gm/dL Hct (34.0-46.0) % MCHC (31.0-37.0) g/dL RDW (11.5-15.5) % Neutrophils # (1.3-7.7) k/uL Lymphocytes # (1.0-4.8) k/uL ABG pH (7.35-7.45) ABG pO2 (83-108) mmHg ABG HCO3 (21-25) mmol/L ABG Total CO2 (19-24) mmol/L ABG O2 Saturation (94-97) % Carbon Dioxide (22-30) mmol/L BUN (7-17) mg/dL Creatinine (0.52-1.04) mg/dL Glucose (74-99) mg/dL POC Glucose (mg/dL) 107 H (75-99) mg/dL Calcium (8.4-10.2) mg/dL AST (14-36) U/L Total Protein (6.3-8.2) g/dL Albumin (3.5-5.0) g/dL Microbiology - Last 24 Hours (Table) 12/15/17 10:40 Fungal Culture - Preliminary Bronchial Washings - Left Rachana albicans 12/10/17 10:40 Fungal Culture - Preliminary Chest 12/10/17 10:45 Fungal Culture - Preliminary Chest 12/10/17 10:50 Fungal Culture - Preliminary Chest - Imaging and Cardiology Chest x-ray: report reviewed, image reviewed Assessment and Plan (1) Acute blood loss anemia Current Visit: Yes Status: Acute Code(s): D62 - ACUTE POSTHEMORRHAGIC ANEMIA SNOMED Code(s): 657463219 (2) CAD (coronary artery disease) Current Visit: Yes Status: Chronic Code(s): I25.10 - ATHSCL HEART DISEASE OF [place] CORONARY ARTERY W/O ANG PCTRS SNOMED Code(s): 65744373 (3) Hyperlipidemia Current Visit: Yes Status: Chronic Code(s): E78.5 - HYPERLIPIDEMIA, UNSPECIFIED SNOMED Code(s): 17229559 (4) Hypertension Current Visit: Yes Status: Chronic Code(s): I10 - ESSENTIAL (PRIMARY) HYPERTENSION SNOMED Code(s): 01777146 (5) Severe mitral regurgitation Current Visit: Yes Status: Chronic Code(s): I34.0 - NONRHEUMATIC MITRAL ( VALVE) INSUFFICIENCY SNOMED Code(s): 20040793 (6) Stenosis of left subclavian artery Current Visit: Yes Status: Chronic Code(s): I77.1 - STRICTURE OF ARTERY SNOMED Code(s): 96624260809552582 (7) Paroxysmal atrial fibrillation Current Visit: No Status: Resolved Code(s): I48.0 - PAROXYSMAL ATRIAL FIBRILLATION SNOMED Code(s): 530832230 (8) History of GI bleed Current Visit: No Status: Resolved Code(s): Z87.19 - PERSONAL HISTORY OF OTHER DISEASES OF THE DIGESTIVE SYSTEM SNOMED Code(s): 573149106 (9) Family history of coronary artery disease Current Visit: Yes Status: Chronic Code(s): Z82.49 - FAMILY HX OF ISCHEM HEART DIS AND OTH DIS OF THE CIRC SYS SNOMED Code(s): 623535801 Plan: 1. Continue baby aspirin, statin, beta krunal. 2. Continue amiodarone for atrial fibrillation prophylaxis. No further IV amiodarone. 3. Ventilator management per pulmonology. Wean as tolerated. 4. Sternal incision cultured, consistent with Serratia. Continue meropenem per Dr. Olivera. Dr. Krause to perform flap sternal closure today. Sputum culture, bronchial washings positive for Rachana, continue Diflucan. 5. Will monitor labs, chest x-rays. 6. Bronchodilators per pulmonology. 7. Will hold off on Coumadin for now as patient is going to surgery today. No IV heparin. 8. GI/DVT prophylaxis. 9. Increase activity once extubated. PT/OT/cardiac rehab following. 10. Continue tube feedings for maximum nutrition. Tube feedings currently on hold for surgery today. 11. Keep Mason for strict accurate intake and output. 12. Keep left pleural chest tube for now to continuous wall suction. 13. More recommendations as patient progresses. Time with Patient: Greater than 30
[2017-12-21] MEDS ORDERED: ROCURONIUM BROMIDE 10 MG/ML 10 ML VIAL IV ONE (10:30)
[2017-12-21] MEDS ORDERED: fentaNYL (PF) 50 MCG/ML 2 ML AMP ONE (10:30)
[2017-12-21] MEDS ORDERED: ALBUMIN HUMAN 5% 250 ML BOTTLE IVPB ONE (10:30)
[2017-12-21] MEDS ORDERED: ePHEDrine SULFATE/0.9% NACL/PF 50 MG/5 ML SYRINGE IV ONE (10:30)
[2017-12-21] MEDS ORDERED: MIDAZOLAM 2 MG/2 ML VIAL ONE (10:30)
[2017-12-21] MEDS ORDERED: PHENYLEPHRINE-0.9% NACL SYG 1 MG/10 ML SYRINGE ONE (10:30)
[2017-12-21] MEDS ORDERED: SODIUM CHLORIDE 0.9% 1,000 ML IV ONE ×2 (10:30)
[2017-12-21 12:19] LABS: Glucose,Whole Blood 101 mg/dL (75-99)
[2017-12-21 14:59] LABS: Glucose,Whole Blood 110 mg/dL (75-99)
[2017-12-21] MEDS: VANCOMYCIN 1,500 MG in SODIUM CHLORIDE 0.9% 250 ML IVPB SCH (15:19)
[2017-12-21] MEDS: ASPIRIN 81 MG PO SCH (15:19)
--- NOTE | 2017-12-21 17:49 | P.PN ---
Subjective Progress Note Date: 12/21/17 Progress note being dictated for Dr. Lugo Interval history: This is 67-year-old female status post CABG, mitral valve replacement, status post multiple blood products transfusions. Remains vent dependent on 40% FiO2/+5 of PEEP. Chest x-ray reporting fluid overload, improvement in volume status, aeration.Maintained on norepinephrine, Primacor, dopamine and insulin drip. Cardiac index 2.7. Telemetry atrial flutter/sinus tach. Tube feeding initiated via OG tube. Hemoglobin 7.3, Platelets decreased to 64 today, maintained on low-dose aspirin. Review systems unable to obtain as patient sedated and on mechanical ventilation. Active Medications Albuterol/Ipratropium (Duoneb 0.5 Mg-3 Mg/3 Ml Soln) 3 ml INHALATION RT-Q4H [facility] Last Admin: 11/29/17 15:17 Dose: 3 ml Albuterol/Ipratropium (Duoneb 0.5 Mg-3 Mg/3 Ml Soln) 3 ml INHALATION RT-Q2H PRN PRN Reason: Shortness Of Breath Or Wheezing Amiodarone HCl (Cordarone) 200 mg PO BID [facility] Aspirin (Aspirin) 81 mg PO DAILY [facility] Last Admin: 11/29/17 08:54 Dose: 81 mg Atorvastatin Calcium (Lipitor) 40 mg PO DAILY [facility] Last Admin: 11/29/17 08:54 Dose: 40 mg Benzocaine/Menthol (Cepacol Lozenge) 1 each MUCOUS MEM Q2H PRN PRN Reason: Sore Throat Bisacodyl (Dulcolax) 10 mg RECTAL DAILY PRN PRN Reason: Constipation Chlorhexidine Gluconate (Peridex) 15 ml MUCOUS MEM BID [facility] Last Admin: 11/29/17 08:48 Dose: 15 ml Furosemide (Lasix) 40 mg IV ONCE ONE Stop: 11/29/17 20:01 Propofol 1,000 mg/ IV Solution 100 mls @ 0 mls/hr IV .Q0M [facility]; Titrate PRN Reason: Protocol Last Admin: 11/29/17 17:54 Dose: 26.13 mcg/kg/min, 17.2 mls/hr Norepinephrine Bitartrate (Levophed-0.9% Nacl 16 Mg/250ml Pmx) 16 mg in 250 mls @ 0 mls/hr IV .Q0M [facility]; Titrate PRN Reason: Protocol Last Admin: 11/29/17 17:54 Dose: 2 mcg/min, 1.875 mls/hr Sodium Chloride (Saline 0.45%) 1,000 mls @ 30 mls/hr IV .Q24H [facility] Last Admin: 11/29/17 10:28 Dose: Not Given Milrinone Lactate/Dextrose 20 (mg/ IV Solution) 100 mls @ 6.58 mls/hr IV .[id number] [facility] PRN Reason: 0.2 MCG/KG/MIN Last Admin: 11/29/17 15:38 Dose: 0.2 mcg/kg/min, 6.58 mls/hr Insulin Aspart (Novolog) 0 unit SQ Q6HR [facility] PRN Reason: Protocol Last Admin: 11/29/17 12:36 Dose: Not Given Magnesium Hydroxide (Milk Of Magnesia) 2,400 mg PO BID PRN PRN Reason: Constipation Metoprolol Tartrate (Lopressor) 12.5 mg PO BID [facility] Last Admin: 11/29/17 08:55 Dose: 12.5 mg Miscellaneous Information (Magnesium Per Protocol) 1 each MISCELLANE DAILY PRN ; Protocol PRN Reason: Per Protocol Miscellaneous Information (Phosphorus Per Protocol) 1 each MISCELLANE DAILY PRN ; Protocol PRN Reason: Per Protocol Miscellaneous Information (Potassium Per Protocol) 1 each MISCELLANE DAILY PRN ; Protocol PRN Reason: Per Protocol Miscellaneous Information (Potassium Per Protocol) 1 each MISCELLANE DAILY PRN ; Protocol PRN Reason: Per Protocol Morphine Sulfate (Morphine Oral Dana 2mg/Ml) 6 mg PO Q2H PRN PRN Reason: Severe Pain Ondansetron HCl (Zofran) 4 mg IVP Q6HR PRN PRN Reason: Nausea And Vomiting Pantoprazole Sodium (Protonix) 40 mg IVP DAILY [facility] Last Admin: 11/29/17 08:55 Dose: 40 mg Senna/Docusate Sodium (Senokot-S) 2 each PO HS [facility] Last Admin: 11/28/17 20:41 Dose: 2 each Sodium Chloride (Saline Flush) 10 ml IV BID [facility] Last Admin: 11/29/17 08:56 Dose: 10 ml 11/30/2017 Chest x-ray reporting increased congestion, received additional Lasix. extubated this morning, currently maintained on BiPAP. Norepinephrine weaned off this morning. Maintained on Primacor, cardiac index 2.6. Received 1 dose of Lasix IV push. Renal function improving. Hemoglobin 7, platelets increased to 74. Atrial flutter per telemetry. Review systems unable to obtain as patient BiPAP dependent. Active Medications Generic Name Dose Route Start Last Admin Trade Name Freq PRN Reason Stop Dose Admin Albuterol/Ipratropium 3 ml 11/25/17 20:00 11/30/17 15:23 Duoneb 0.5 Mg-3 Mg/3 Ml Soln INHALATION 3 ml RT-Q4H [facility] Administration Albuterol/Ipratropium 3 ml 11/26/17 17:53 Duoneb 0.5 Mg-3 Mg/3 Ml Soln INHALATION RT-Q2H PRN Shortness Of Breath Or Wheezing Amiodarone HCl 200 mg 11/29/17 21:00 11/30/17 08:14 Cordarone PO 200 mg BID [facility] Administration Aspirin 81 mg 11/26/17 10:15 11/30/17 08:15 Aspirin PO 81 mg DAILY [facility] Administration Atorvastatin Calcium 40 mg 11/26/17 09:00 11/30/17 08:14 Lipitor PO 40 mg DAILY [facility] Administration Benzocaine/Menthol 1 each 11/25/17 19:03 Cepacol Lozenge MUCOUS MEM Q2H PRN Sore Throat Bisacodyl 10 mg 11/26/17 17:52 Dulcolax RECTAL DAILY PRN Constipation Fondaparinux 2.5 mg 11/30/17 11:30 11/30/17 13:23 Arixtra SQ 2.5 mg DAILY [facility] Administration Norepinephrine Bitartrate 16 mg in 250 mls @ 0 mls/hr 11/26/17 04:15 11:58 Levophed-0.9% Nacl 16 Mg/250ml Pmx IV 0 mcg/min .Q0M [facility] 0 mls/hr Protocol Titration Titrate Sodium Chloride 1,000 mls @ 10 mls/hr 11/26/17 10:15 11/30/17 12:51 Saline 0.45% IV Not Given .Q24H [facility] Milrinone Lactate/Dextrose 20 100 mls @ 6.58 mls/hr 11/29/17 15:00 11/30/17 08:16 mg/ IV Solution IV 0.2 mcg/kg/min .[id number] [facility] 6.58 mls/hr 0.2 MCG/KG/MIN Infusion Insulin Aspart 0 unit 11/29/17 12:00 11/30/17 12:50 Novolog SQ Not Given Q6HR [facility] Protocol Magnesium Hydroxide 2,400 mg 11/26/17 17:53 Milk Of Magnesia PO BID PRN Constipation Metoprolol Tartrate 12.5 mg 11/26/17 09:00 11/30/17 08:15 Lopressor PO 12.5 mg BID [facility] Administration Miscellaneous Information 1 each 11/25/17 19:03 Magnesium Per Protocol MISCELLANE DAILY PRN Per Protocol Protocol Miscellaneous Information 1 each 11/25/17 19:03 Phosphorus Per Protocol MISCELLANE DAILY PRN Per Protocol Protocol Miscellaneous Information 1 each 11/25/17 19:03 Potassium Per Protocol MISCELLANE DAILY PRN Per Protocol Protocol Miscellaneous Information 1 each 11/29/17 12:01 Potassium Per Protocol MISCELLANE DAILY PRN Per Protocol Protocol Morphine Sulfate 6 mg 11/29/17 13:31 Morphine Oral Dana 2mg/Ml PO Q2H PRN Severe Pain Ondansetron HCl 4 mg 11/25/17 19:03 Zofran IVP Q6HR PRN Nausea And Vomiting Pantoprazole Sodium 40 mg 11/26/17 09:00 11/30/17 08:15 Protonix IVP 40 mg DAILY [facility] Administration Senna/Docusate Sodium 2 each 11/26/17 21:00 11/29/17 20:40 Senokot-S PO 2 each HS [facility] Administration Sodium Chloride 10 ml 11/25/17 21:00 11/30/17 08:15 Saline Flush IV 10 ml BID [facility] Administration 12/01/2017 Breathing improving, weaned off of BiPAP and down to 6 L high flow. Wheezing resolved. Chest x-ray reports improvement. Staff reports patient appeared to be choking on pills last night, speech therapy consulted. Receiving one unit of packed RBCs for hemoglobin of 6.7. Mediastinal chest tubes discontinued, left pleural chest tube remains. Maintained on Primacor. Telemetry atrial flutter. Review of systems: CONSTITUTIONAL: No fever, no malaise HEENT: No recent visual problems or hearing problems. Denied any sore throat. CARDIOVASCULAR: No chest pain, no palpitations, no syncope. PULMONARY: Improving shortness of breath, no cough, no hemoptysis. GASTROINTESTINAL: No diarrhea, no nausea, no vomiting, no abdominal pain. Normoactive bowel sounds. NEUROLOGICAL: No headaches, diffuse weakness, no numbness. HEMATOLOGICAL: Denies any bleeding or petechiae. GENITOURINARY: Denies any burning micturition, frequency, or urgency. ENDOCRINE: Denies any polyuria or polydipsia. PSYCHIATRIC: No anxiety, no depression Active Medications Hydrocodone Bitart/Acetaminophen (Wilder 5-325) 1 each PO Q4HR PRN PRN Reason: MILD TO MODERATE Pain Last Admin: 12/01/17 22:44 Dose: 1 each Hydrocodone Bitart/Acetaminophen (Wilder 5-325) 2 each PO Q4HR PRN PRN Reason: MODERATE TO SEVERE Pain Albuterol/Ipratropium (Duoneb 0.5 Mg-3 Mg/3 Ml Soln) 3 ml INHALATION RT-Q4H [facility] Last Admin: 12/02/17 15:06 Dose: 3 ml Albuterol/Ipratropium (Duoneb 0.5 Mg-3 Mg/3 Ml Soln) 3 ml INHALATION RT-Q2H PRN PRN Reason: Shortness Of Breath Or Wheezing Last Admin: 12/01/17 18:09 Dose: 3 ml Amiodarone HCl (Cordarone) 200 mg PO BID [facility] Last Admin: 12/02/17 08:10 Dose: 200 mg Aspirin (Aspirin) 81 mg PO DAILY [facility] Last Admin: 12/02/17 08:10 Dose: 81 mg Atorvastatin Calcium (Lipitor) 40 mg PO DAILY [facility] Last Admin: 12/02/17 08:10 Dose: 40 mg Benzocaine/Menthol (Cepacol Lozenge) 1 each MUCOUS MEM Q2H PRN PRN Reason: Sore Throat Bisacodyl (Dulcolax) 10 mg RECTAL DAILY PRN PRN Reason: Constipation Budesonide (Pulmicort) 1 mg INHALATION RT-BID [facility] Last Admin: 12/02/17 07:19 Dose: 1 mg Fondaparinux (Arixtra) 2.5 mg SQ DAILY [facility] Last Admin: 12/02/17 08:10 Dose: 2.5 mg Formoterol Fumarate (Perforomist) 20 mcg INHALATION RT-BID [facility] Last Admin: 12/02/17 07:36 Dose: 20 mcg Norepinephrine Bitartrate (Levophed-0.9% Nacl 16 Mg/250ml Pmx) 16 mg in 250 mls @ 0 mls/hr IV .Q0M [facility]; Titrate PRN Reason: Protocol Last Titration: 11/30/17 11:58 Dose: 0 mcg/min, 0 mls/hr Sodium Chloride (Saline 0.45%) 1,000 mls @ 10 mls/hr IV .Q24H [facility] Last Admin: 12/01/17 14:04 Dose: 10 mls/hr Milrinone Lactate/Dextrose 20 (mg/ IV Solution) 100 mls @ 6.58 mls/hr IV .[id number] [facility] PRN Reason: 0.2 MCG/KG/MIN Last Admin: 12/02/17 08:57 Dose: 0.2 mcg/kg/min, 6.58 mls/hr Insulin Aspart (Novolog) 0 unit SQ Q6HR [facility] PRN Reason: Protocol Last Admin: 12/02/17 12:53 Dose: Not Given Magnesium Hydroxide (Milk Of Magnesia) 2,400 mg PO BID PRN PRN Reason: Constipation Methylprednisolone Sodium Succinate (Solu-Medrol) 30 mg IV Q8HR [facility] Last Admin: 12/02/17 08:10 Dose: 30 mg Metoprolol Tartrate (Lopressor) 25 mg PO BID [facility] Last Admin: 12/02/17 08:59 Dose: 25 mg Miscellaneous Information (Magnesium Per Protocol) 1 each MISCELLANE DAILY PRN ; Protocol PRN Reason: Per Protocol Miscellaneous Information (Phosphorus Per Protocol) 1 each MISCELLANE DAILY PRN ; Protocol PRN Reason: Per Protocol Miscellaneous Information (Potassium Per Protocol) 1 each MISCELLANE DAILY PRN ; Protocol PRN Reason: Per Protocol Miscellaneous Information (Potassium Per Protocol) 1 each MISCELLANE DAILY PRN ; Protocol PRN Reason: Per Protocol Ondansetron HCl (Zofran) 4 mg IVP Q6HR PRN PRN Reason: Nausea And Vomiting Pantoprazole Sodium (Protonix) 40 mg IVP DAILY [facility] Last Admin: 12/02/17 08:10 Dose: 40 mg Senna/Docusate Sodium (Senokot-S) 2 each PO HS [facility] Last Admin: 12/01/17 21:55 Dose: 2 each Sodium Chloride (Saline Flush) 10 ml IV BID [facility] Last Admin: 12/02/17 12:51 Dose: 10 ml 12/02/17 Much more alert today. Oxygen weaned further down to 5 L nasal cannula, maintaining O2 sats in the high 90s. Pleural chest tube discontinued. Chest x- ray reporting probable right lower lobe atelectasis/effusion. Underwent modified barium swallow, with recommendations of regular diet, thin liquids, chin tuck, no straw, small bites/sepsis/sips; no impairment with exception of mild transient penetration with thin liquids which patient independently cleared. Yesterday receive 1 unit of packed RBCs with current hemoglobin 8. Weaning of Primacor in progress. 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 Review of systems: CONSTITUTIONAL: No fever, no malaise, no fatigue. HEENT: No recent visual problems or hearing problems. Denied any sore throat. CARDIOVASCULAR: No chest pain, no palpitations, no syncope. PULMONARY: Minimal shortness of breath, no cough, no hemoptysis. GASTROINTESTINAL: No diarrhea, no nausea, no vomiting, no abdominal pain. Normoactive bowel sounds. NEUROLOGICAL: No headaches, no weakness, no numbness. HEMATOLOGICAL: Denies any bleeding or petechiae. GENITOURINARY: Denies any burning micturition, frequency, or urgency. MUSCULOSKELETAL/RHEUMATOLOGICAL: Denies any joint pain, swelling, or any muscle pain. ENDOCRINE: Denies any polyuria or polydipsia. PSYCHIATRIC: No anxiety, no depression The rest of the 14 point review of systems is negative Active Medications Generic Name Dose Route Start Last Admin Trade Name Freq PRN Reason Stop Dose Admin Hydrocodone Bitart/Acetaminophen 1 each 12/01/17 12:20 12/01/17 22:44 Wilder 5-325 PO 1 each Q4HR PRN Administration MILD TO MODERATE Pain Hydrocodone Bitart/Acetaminophen 2 each 12/01/17 12:20 Wilder 5-325 PO Q4HR PRN MODERATE TO SEVERE Pain Albuterol/Ipratropium 3 ml 11/25/17 20:00 12/02/17 15:06 Duoneb 0.5 Mg-3 Mg/3 Ml Soln INHALATION 3 ml RT-Q4H [facility] Administration Albuterol/Ipratropium 3 ml 11/26/17 17:53 12/01/17 18:09 Duoneb 0.5 Mg-3 Mg/3 Ml Soln INHALATION 3 ml RT-Q2H PRN Administration Shortness Of Breath Or Wheezing Amiodarone HCl 200 mg 11/29/17 21:00 12/02/17 08:10 Cordarone PO 200 mg BID [facility] Administration Aspirin 81 mg 11/26/17 10:15 12/02/17 08:10 Aspirin PO 81 mg DAILY [facility] Administration Atorvastatin Calcium 40 mg 11/26/17 09:00 12/02/17 08:10 Lipitor PO 40 mg DAILY [facility] Administration Benzocaine/Menthol 1 each 11/25/17 19:03 Cepacol Lozenge MUCOUS MEM Q2H PRN Sore Throat Bisacodyl 10 mg 11/26/17 17:52 Dulcolax RECTAL DAILY PRN Constipation Budesonide 1 mg 12/01/17 20:00 12/02/17 07:19 Pulmicort INHALATION 1 mg RT-BID [facility] Administration Fondaparinux 2.5 mg 11/30/17 11:30 12/02/17 08:10 Arixtra SQ 2.5 mg DAILY [facility] Administration Formoterol Fumarate 20 mcg 12/01/17 20:00 12/02/17 07:36 Perforomist INHALATION 20 mcg RT-BID [facility] Administration Norepinephrine Bitartrate 16 mg in 250 mls @ 0 mls/hr 11/26/17 04:15 11:58 Levophed-0.9% Nacl 16 Mg/250ml Pmx IV 0 mcg/min .Q0M [facility] 0 mls/hr Protocol Titration Titrate Sodium Chloride 1,000 mls @ 10 mls/hr 11/26/17 10:15 12/02/17 15:41 Saline 0.45% IV Not Given .Q24H [facility] Milrinone Lactate/Dextrose 20 100 mls @ 6.58 mls/hr 11/29/17 15:00 12/02/17 08:57 mg/ IV Solution IV 0.2 mcg/kg/min .[id number] [facility] 6.58 mls/hr 0.2 MCG/KG/MIN Administration Insulin Aspart 0 unit 11/29/17 12:00 12/02/17 12:53 Novolog SQ Not Given Q6HR [facility] Protocol Magnesium Hydroxide 2,400 mg 11/26/17 17:53 Milk Of Magnesia PO BID PRN Constipation Methylprednisolone Sodium Succinate 30 mg 12/01/17 16:00 12/02/17 08:10 Solu-Medrol IV 30 mg Q8HR [facility] Administration Metoprolol Tartrate 25 mg 12/02/17 09:00 12/02/17 08:59 Lopressor PO 25 mg BID [facility] Administration Miscellaneous Information 1 each 11/25/17 19:03 Magnesium Per Protocol MISCELLANE DAILY PRN Per Protocol Protocol Miscellaneous Information 1 each 11/25/17 19:03 Phosphorus Per Protocol MISCELLANE DAILY PRN Per Protocol Protocol Miscellaneous Information 1 each 11/25/17 19:03 Potassium Per Protocol MISCELLANE DAILY PRN Per Protocol Protocol Miscellaneous Information 1 each 11/29/17 12:01 Potassium Per Protocol MISCELLANE DAILY PRN Per Protocol Protocol Ondansetron HCl 4 mg 11/25/17 19:03 Zofran IVP Q6HR PRN Nausea And Vomiting Pantoprazole Sodium 40 mg 11/26/17 09:00 12/02/17 08:10 Protonix IVP 40 mg DAILY [facility] Administration Senna/Docusate Sodium 2 each 11/26/17 21:00 12/01/17 21:55 Senokot-S PO 2 each HS [facility] Administration Sodium Chloride 10 ml 11/25/17 21:00 12/02/17 12:51 Saline Flush IV 10 ml BID [facility] Administration 12/03/17 maintained on nebulized bronchodilators, steroids,patient tachypneic, requiring BiPap throughout today off and on. Chest x-ray suggestive of fluid overload. Received additional Lasix. Maintained on oral amiodarone, remains in a-flutter. Overdrive atrial pacing attempted unsuccessfully. Digoxin 2 ordered. Pacer wires discontinued today. Stool at bedside with PT OT, remains extremely weak. Primacor weaned off yesterday. 2017 currently in atrial fibrillation with heart rates up into the 150s, scheduled for cardioversion tomorrow. INR 2.2. Patient currently wearing BiPAP ,has required on and off all day. Chest ultrasound reporting bilateral pleural effusions, larger on the right. Thoracentesis on hold, awaiting cardioversion.Chest x-ray reporting prominent interstitium and central vascularity, increased bibasilar density. Attempting diuresing with Lasix and Zaroxolyn. Review systems unable to obtain as patient currently on BiPAP. Active Medications Hydrocodone Bitart/Acetaminophen (Wilder 5-325) 1 each PO Q4HR PRN PRN Reason: MILD TO MODERATE Pain Last Admin: 12/07/17 10:48 Dose: 1 each Hydrocodone Bitart/Acetaminophen (Wilder 5-325) 2 each PO Q4HR PRN PRN Reason: MODERATE TO SEVERE Pain Last Admin: 12/07/17 16:39 Dose: 2 each Albuterol/Ipratropium (Duoneb 0.5 Mg-3 Mg/3 Ml Soln) 3 ml INHALATION RT-Q2H PRN PRN Reason: Shortness Of Breath Or Wheezing Last Admin: 12/01/17 18:09 Dose: 3 ml Albuterol/Ipratropium (Duoneb 0.5 Mg-3 Mg/3 Ml Soln) 3 ml INHALATION RT-QID [facility] Last Admin: 12/07/17 16:43 Dose: 3 ml Amiodarone HCl (Cordarone) 200 mg PO BID [facility] Aspirin (Aspirin) 81 mg PO DAILY [facility] Last Admin: 12/07/17 08:53 Dose: 81 mg Atorvastatin Calcium (Lipitor) 40 mg PO DAILY [facility] Last Admin: 12/07/17 08:53 Dose: 40 mg Benzocaine/Menthol (Cepacol Lozenge) 1 each MUCOUS MEM Q2H PRN PRN Reason: Sore Throat Bisacodyl (Dulcolax) 10 mg RECTAL DAILY PRN PRN Reason: Constipation Budesonide (Pulmicort) 1 mg INHALATION RT-BID [facility] Last Admin: 12/07/17 08:36 Dose: 1 mg Escitalopram Oxalate (Lexapro) 10 mg PO HS [facility] Furosemide (Lasix) 40 mg IV Q12HR [facility] Last Admin: 12/07/17 08:33 Dose: 40 mg Piperacillin/Tazobactam/ (Dextrose 3.375 gm/ IV Solution) 50 mls @ 12.5 mls/hr IVPB Q8HR [facility] Last Admin: 12/07/17 16:39 Dose: 12.5 mls/hr Sodium Chloride (Saline 0.9%) 1,000 mls @ 20 mls/hr IV .Q24H [facility] Last Admin: 12/07/17 13:00 Dose: 20 mls/hr Lactated Ringer's (Lactated Ringers) 1,000 mls @ 20 mls/hr IV .Q24H [facility] Last Admin: 12/06/17 20:45 Dose: 20 mls/hr Insulin Aspart (Novolog) 0 unit SQ ACHS [facility] PRN Reason: Protocol Last Admin: 12/07/17 13:01 Dose: 2 unit Magnesium Hydroxide (Milk Of Magnesia) 2,400 mg PO BID PRN PRN Reason: Constipation Methylprednisolone Sodium Succinate (Solu-Medrol) 30 mg IV Q8HR [facility] Last Admin: 12/07/17 16:39 Dose: 30 mg Metolazone (Zaroxolyn) 5 mg PO DAILY [facility] Last Admin: 12/07/17 08:53 Dose: 5 mg Metoprolol Tartrate (Lopressor) 50 mg PO BID [facility] Last Admin: 12/07/17 08:53 Dose: 50 mg Miscellaneous Information (Magnesium Per Protocol) 1 each MISCELLANE DAILY PRN ; Protocol PRN Reason: Per Protocol Miscellaneous Information (Phosphorus Per Protocol) 1 each MISCELLANE DAILY PRN ; Protocol PRN Reason: Per Protocol Miscellaneous Information (Potassium Per Protocol) 1 each MISCELLANE DAILY PRN ; Protocol PRN Reason: Per Protocol Ondansetron HCl (Zofran) 4 mg IVP Q6HR PRN PRN Reason: Nausea And Vomiting Pantoprazole Sodium (Protonix) 40 mg PO AC-BRKFST [facility] Last Admin: 12/07/17 08:53 Dose: 40 mg Senna/Docusate Sodium (Senokot-S) 2 each PO HS [facility] Last Admin: 12/06/17 20:29 Dose: 2 each Sodium Chloride (Saline Flush) 10 ml IV BID [facility] Last Admin: 12/07/17 10:48 Dose: 10 ml 12/07/2017 Underwent successful cardioversion this morning,360J X1, remains in sinus rhythm. Currently wearing BiPAP. Nonproductive cough. Diuresing well on Lasix and Zaroxolyn with 24-hour I&O reflecting a negative fluid balance. Chest x-ray reporting stable bilateral areas of infiltrate and pleural effusions , possible CHF, possible pneumonia. INR 3.8, afebrile, WBC 17. Maintained on Zosyn. Sternal wound drainage, cultures sent. 12/08/2017 Cardioverted yesterday, remains in sinus rhythm .continues requiring BiPAP for majority of morning. Echo reporting-limited study for assessment of pericardial effusion, small generalized pericardial effusion, low normal LV function, EF 50-55%. Chest CT reporting sternal dehiscence, moderate to large pericardial effusion, possible mass effect onto the left ventricle, no significant right atrial dilatation to clearly indicate tamponade, moderate left pleural effusion with adjacent complete left lower lobar and inferior lingular collapse, small right pleural effusion, right basilar subsegmental atelectasis. Chest x-ray noted. Blood sugars controlled. INR 4.8, received vitamin K this morning. Diuresing well on Lasix IV push, Zaroxolyn. 24-hour I& O reflecting a negative fluid balance, decreased weight. Midsternal incision open, draining large amount of serosanguineous drainage. Currently maintained on Zosyn. Wound cultures pending. Afebrile. Review systems unable to obtain as patient currently on BiPAP. Active Medications Generic Name Dose Route Start Last Admin Trade Name Freq PRN Reason Stop Dose Admin Hydrocodone Bitart/Acetaminophen 1 each 12/01/17 12:20 12/08/17 06:26 Wilder 5-325 PO 1 each Q4HR PRN Administration MILD TO MODERATE Pain Hydrocodone Bitart/Acetaminophen 2 each 12/01/17 12:20 12/08/17 18:41 Wilder 5-325 PO 2 each Q4HR PRN Administration MODERATE TO SEVERE Pain Acetazolamide Sodium 250 mg 12/08/17 09:15 12/08/17 11:16 Diamox IV 12/08/17 21:01 250 mg Q12HR [facility] Administration Albuterol/Ipratropium 3 ml 11/26/17 17:53 12/08/17 05:16 Duoneb 0.5 Mg-3 Mg/3 Ml Soln INHALATION 3 ml RT-Q2H PRN Administration Shortness Of Breath Or Wheezing Albuterol/Ipratropium 3 ml 12/03/17 08:00 12/08/17 15:38 Duoneb 0.5 Mg-3 Mg/3 Ml Soln INHALATION 3 ml RT-QID [facility] Administration Amiodarone HCl 200 mg 12/08/17 09:00 12/08/17 08:24 Cordarone PO 200 mg BID [facility] Administration Aspirin 81 mg 11/26/17 10:15 12/08/17 08:24 Aspirin PO 81 mg DAILY [facility] Administration Atorvastatin Calcium 40 mg 11/26/17 09:00 12/08/17 08:25 Lipitor PO 40 mg DAILY [facility] Administration Benzocaine/Menthol 1 each 11/25/17 19:03 Cepacol Lozenge MUCOUS MEM Q2H PRN Sore Throat Bisacodyl 10 mg 11/26/17 17:52 Dulcolax RECTAL DAILY PRN Constipation Budesonide 1 mg 12/01/17 20:00 12/08/17 09:26 Pulmicort INHALATION 1 mg RT-BID [facility] Administration Escitalopram Oxalate 10 mg 12/07/17 21:00 12/07/17 20:10 Lexapro PO 10 mg HS [facility] Administration Piperacillin/Tazobactam/ 50 mls @ 12.5 mls/hr 12/04/17 16:00 12/08/17 16:11 Dextrose 3.375 gm/ IV Solution IVPB 12.5 mls/hr Q8HR [facility] Administration Sodium Chloride 1,000 mls @ 20 mls/hr 12/06/17 10:45 12/08/17 13:47 Saline 0.9% IV Not Given .Q24H [facility] Insulin Aspart 0 unit 12/02/17 21:00 12/08/17 17:46 Novolog SQ 1 unit ACHS [facility] Administration Protocol Magnesium Hydroxide 2,400 mg 11/26/17 17:53 Milk Of Magnesia PO BID PRN Constipation Metoprolol Tartrate 50 mg 12/06/17 21:00 12/08/17 08:24 Lopressor PO 50 mg BID [facility] Administration Miscellaneous Information 1 each 11/25/17 19:03 Magnesium Per Protocol MISCELLANE DAILY PRN Per Protocol Protocol Miscellaneous Information 1 each 11/25/17 19:03 Phosphorus Per Protocol MISCELLANE DAILY PRN Per Protocol Protocol Miscellaneous Information 1 each 11/25/17 19:03 Potassium Per Protocol MISCELLANE DAILY PRN Per Protocol Protocol Ondansetron HCl 4 mg 11/25/17 19:03 Zofran IVP Q6HR PRN Nausea And Vomiting Pantoprazole Sodium 40 mg 12/05/17 07:30 12/08/17 08:25 Protonix PO 40 mg AC-[id number] [facility] Administration Senna/Docusate Sodium 2 each 11/26/17 21:00 12/07/17 20:16 Senokot-S PO 2 each HS [facility] Administration Sodium Chloride 10 ml 11/25/17 21:00 12/08/17 11:16 Saline Flush IV 10 ml BID [facility] Administration 12/09/17 Remains in sinus rhythm. mostly BiPAP dependent. Incentive spirometer up to 700 -750. Chest x-ray reporting improving moderate pleural effusion, cardiomegaly. Sternal wound culture positive for gram-negative bacilli. Maintained on Zosyn. Diet intake fair. Blood sugars controlled. Review systems unable to be performed as patient on BiPAP Active Medications Hydrocodone Bitart/Acetaminophen (Wilder 5-325) 1 each PO Q4HR PRN PRN Reason: MILD TO MODERATE Pain Last Admin: 12/09/17 10:03 Dose: 1 each Hydrocodone Bitart/Acetaminophen (Wilder 5-325) 2 each PO Q4HR PRN PRN Reason: MODERATE TO SEVERE Pain Last Admin: 12/09/17 14:51 Dose: 2 each Albuterol/Ipratropium (Duoneb 0.5 Mg-3 Mg/3 Ml Soln) 3 ml INHALATION RT-Q2H PRN PRN Reason: Shortness Of Breath Or Wheezing Last Admin: 12/08/17 05:16 Dose: 3 ml Albuterol/Ipratropium (Duoneb 0.5 Mg-3 Mg/3 Ml Soln) 3 ml INHALATION RT-QID [facility] Last Admin: 12/09/17 15:42 Dose: 3 ml Amiodarone HCl (Cordarone) 200 mg PO BID [facility] Last Admin: 12/09/17 08:12 Dose: 200 mg Aspirin (Aspirin) 81 mg PO DAILY [facility] Last Admin: 12/09/17 08:13 Dose: 81 mg Atorvastatin Calcium (Lipitor) 40 mg PO DAILY [facility] Last Admin: 12/09/17 08:13 Dose: 40 mg Benzocaine/Menthol (Cepacol Lozenge) 1 each MUCOUS MEM Q2H PRN PRN Reason: Sore Throat Bisacodyl (Dulcolax) 10 mg RECTAL DAILY PRN PRN Reason: Constipation Budesonide (Pulmicort) 1 mg INHALATION RT-BID [facility] Last Admin: 12/09/17 07:45 Dose: 1 mg Escitalopram Oxalate (Lexapro) 10 mg PO HS [facility] Last Admin: 12/08/17 20:33 Dose: 10 mg Piperacillin/Tazobactam/ (Dextrose 3.375 gm/ IV Solution) 50 mls @ 12.5 mls/hr IVPB Q8HR [facility] Last Admin: 12/09/17 08:16 Dose: 12.5 mls/hr Sodium Chloride (Saline 0.9%) 1,000 mls @ 20 mls/hr IV .Q24H [facility] Last Admin: 12/09/17 08:17 Dose: 20 mls/hr Insulin Aspart (Novolog) 0 unit SQ ACHS [facility] PRN Reason: Protocol Last Admin: 12/09/17 12:23 Dose: Not Given Magnesium Hydroxide (Milk Of Magnesia) 2,400 mg PO BID PRN PRN Reason: Constipation Metoprolol Tartrate (Lopressor) 50 mg PO BID [facility] Last Admin: 12/09/17 08:13 Dose: 50 mg Miscellaneous Information (Magnesium Per Protocol) 1 each MISCELLANE DAILY PRN ; Protocol PRN Reason: Per Protocol Miscellaneous Information (Phosphorus Per Protocol) 1 each MISCELLANE DAILY PRN ; Protocol PRN Reason: Per Protocol Miscellaneous Information (Potassium Per Protocol) 1 each MISCELLANE DAILY PRN ; Protocol PRN Reason: Per Protocol Ondansetron HCl (Zofran) 4 mg IVP Q6HR PRN PRN Reason: Nausea And Vomiting Pantoprazole Sodium (Protonix) 40 mg PO AC-BRKFST [facility] Last Admin: 12/09/17 08:11 Dose: 40 mg Senna/Docusate Sodium (Senokot-S) 2 each PO HS [facility] Last Admin: 12/08/17 20:37 Dose: 2 each Sodium Chloride (Saline Flush) 10 ml IV BID [facility] Last Admin: 12/09/17 08:13 Dose: 10 ml 12/13/17 maintained on Merrem and vancomycin. BiPAP dependent. Worsening chest x-ray, chest CT reporting near complete collapse of left lung, enlarging moderate to large pericardial effusion. Echo pending. Multiple episodes of diarrhea. Atrial flutter with RVR, Review systems unable to be performed as patient on BiPAP Active Medications Generic Name Dose Route Start Last Admin Trade Name Freq PRN Reason Stop Dose Admin Hydrocodone Bitart/Acetaminophen 1 each 12/01/17 12:20 12/13/17 08:08 Wilder 5-325 PO 1 each Q4HR PRN Administration MILD TO MODERATE Pain Hydrocodone Bitart/Acetaminophen 2 each 12/01/17 12:20 12/13/17 15:08 Wilder 5-325 PO 2 each Q4HR PRN Administration MODERATE TO SEVERE Pain Albuterol/Ipratropium 3 ml 11/26/17 17:53 12/08/17 05:16 Duoneb 0.5 Mg-3 Mg/3 Ml Soln INHALATION 3 ml RT-Q2H PRN Administration Shortness Of Breath Or Wheezing Albuterol/Ipratropium 3 ml 12/03/17 08:00 12/13/17 16:02 Duoneb 0.5 Mg-3 Mg/3 Ml Soln INHALATION Not Given RT-QID [facility] Amiodarone HCl 200 mg 12/11/17 20:00 12/13/17 09:12 Cordarone PO 200 mg BID@0800,2000 [facility] Administration Aspirin 81 mg 11/26/17 10:15 12/13/17 09:13 Aspirin PO 81 mg DAILY [facility] Administration Atorvastatin Calcium 40 mg 11/26/17 09:00 12/13/17 09:13 Lipitor PO 40 mg DAILY [facility] Administration Benzocaine/Menthol 1 each 11/25/17 19:03 Cepacol Lozenge MUCOUS MEM Q2H PRN Sore Throat Bisacodyl 10 mg 11/26/17 17:52 12/12/17 17:45 Dulcolax RECTAL 10 mg DAILY PRN Administration Constipation Budesonide 1 mg 12/01/17 20:00 12/13/17 07:46 Pulmicort INHALATION 1 mg RT-BID [facility] Administration Escitalopram Oxalate 10 mg 12/07/17 21:00 12/12/17 20:16 Lexapro PO 10 mg HS [facility] Administration Heparin Sodium (Porcine) 5,000 unit 12/10/17 16:00 12/13/17 09:14 Heparin SQ 5,000 unit Q8HR [facility] Administration Sodium Chloride 1,000 mls @ 20 mls/hr 12/06/17 10:45 12/13/17 09:49 Saline 0.9% IV 20 mls/hr .Q24H [facility] Administration Meropenem 1 gm/ Sodium 100 mls @ 100 mls/hr 12/09/17 22:00 12/13/17 09:46 Chloride IVPB 100 mls/hr Q8HR [facility] Administration Vancomycin HCl 1,750 mg/ 250 mls @ 125 mls/hr 12/13/17 14:00 12/13/17 14:15 Sodium Chloride IVPB 125 mls/hr Q12HR@0000,1200 [facility] Administration Insulin Aspart 0 unit 12/02/17 21:00 12/13/17 12:34 Novolog SQ Not Given ACHS [facility] Protocol Lactobacillus Acidoph/Bulgaricus 1 each 12/13/17 16:00 Lactinex PO TID [facility] Magnesium Hydroxide 2,400 mg 11/26/17 17:53 Milk Of Magnesia PO BID PRN Constipation Metoprolol Tartrate 50 mg 12/11/17 22:00 12/13/17 09:13 Lopressor PO 50 mg BID@1000,2200 [facility] Administration Miscellaneous Information 1 each 11/25/17 19:03 Magnesium Per Protocol MISCELLANE DAILY PRN Per Protocol Protocol Miscellaneous Information 1 each 11/25/17 19:03 Phosphorus Per Protocol MISCELLANE DAILY PRN Per Protocol Protocol Miscellaneous Information 1 each 11/25/17 19:03 Potassium Per Protocol MISCELLANE DAILY PRN Per Protocol Protocol Ondansetron HCl 4 mg 11/25/17 19:03 Zofran IVP Q6HR PRN Nausea And Vomiting Pantoprazole Sodium 40 mg 12/05/17 07:30 12/13/17 09:13 Protonix PO 40 mg AC-BRKFST [facility] Administration Senna/Docusate Sodium 2 each 11/26/17 21:00 12/12/17 20:16 Senokot-S PO 2 each HS [facility] Administration Sodium Chloride 10 ml 11/25/17 21:00 12/13/17 09:49 Saline Flush IV 10 ml BID [facility] Administration 12/14/17 maintained on Merrem and vancomycin per infectious disease .remains BiPAP dependent. Chest x-ray reporting persistent significant left lung collapse with minimal improvement. Scheduled for bronchoscopy this afternoon. INR 2.1, receiving FFP. No diarrhea today. Telemetry atrial fibrillation/ flutter, heart rate 110s to 120s. 12/15/2017 developed worsened respiratory distress despite BiPAP, diuretics, antiarrhythmics, intubated last night. Received 2 more units of FFP this morning, underwent bronchoscopy this morning; mucous plug discovered in the left lower lobe. Pleural Cultures pending. Maintained on FiO2 45%/+5 of PEEP. Continues on IV antibiotics. Currently on 2-1/2 mics of Levophed and diprovan drips. Atrial tachycardia, heart rate in the 130s. Amiodarone discontinued as per cardiology. Developed increased bleeding from wound VAC with turning during bath-Anticoagulation placed on hold. Afebrile. 12/16/17 remains vent dependent, FiO2 40%/+5 of PEEP. Sedated on Diprovan. Requiring low-dose of Levophed. Marginal urine output, received albumin last night. Tachycardia resolved, sinus rhythm per telemetry. Wound VAC dressing changed today, serosanguineous drainage. Bronchoscopy yesterday, cultures pending. Blood sugars controlled. 12/17/2017 today weaning trials of pressure support in increments of 3 hours , resting at night, FiO2 40%/+5 of PEEP. Chest x-ray reporting improvement. Currently on Levophed. Tolerating tube feeds at goal with minimal to no residual. Maintained on IV antibiotics as per infectious disease. Telemetry sinus rhythm. 12/20/17 remains vent dependent FiO2 40%/PEEP of 5. Yesterday vent weaning during the day hours, tolerated well. Wound VAC changed yesterday. Scheduled for sternal flap repair tomorrow. Maintained on IV antibiotics. T-max 99.4. Last night returned into rapid atrial flutter, Currently sinus rhythm. 12/21/2017 remains vent dependent. Telemetry sinus rhythm. Tube feeds on hold. Scheduled for sternal flap repair today. Objective - Vital Signs Vital signs: Vital Signs Temp 97.6 F 12/21/17 15:00 Pulse 67 12/21/17 17:00 Resp 13 12/21/17 17:00 BP 116/54 12/19/17 10:00 Pulse Ox 100 12/21/17 17:00 Intake & Output 12/20/17 12/21/17 12/21/17 18:59 06:59 18:59 Intake Total 1116 1559 1238 Output Total 695 495 670 Balance 421 1064 568 Weight 113.2 kg 112.8 kg Intake: IV 292 186 0731 Meropenem 1 gm In Sodium 100 Chloride 0.9% 100 ml @ 100 mls/hr IVPB Q8HR [facility] Rx#:[id number] Pressure Bag 36 39 18 Sodium Chloride 0.9% 1, 240 260 100 000 ml @ 20 mls/hr IV . Q24H [facility] Rx#:[id number] Intake, IV Titration 200 200 Amount Fluconazole in NaCl,Iso- 100 Osm 200 mg In Saline 1 100ml.bag @ 100 mls/hr IVPB DAILY [facility] Rx#: [id number] Propofol 1,000 mg In 100 200 Empty Bag 1 bag @ Titrate IV .Q0M [facility] Rx#: [id number] Oral 100 Tube Feeding 640 680 60 Other 180 60 Output: Chest Tube Drainage 0 0 20 Pleural Catheter Left 0 0 20 Drainage 0 0 210 Medial Abdomen 70 Medial Chest Incision - 0 0 0 Woundvac Right Abdomen 140 Urine 695 495 340 Estimated Blood Loss 100 Other: Voiding Method Indwelling Catheter Indwelling Catheter Indwelling Catheter ABP, PAP, CO, CI - Last Documented Arterial Blood Pressure 114/47 Pulmonary Artery Pressure 38/33 Cardiac Output 5.8 Cardiac Index 2.9 - Exam PHYSICAL EXAM: VITAL SIGNS: As above GENERAL: Sitting up in bed, on mechanical ventilation HEENT: Conjunctivae normal. eyes normal. NECK: No JVD. No thyroid enlargement. CARDIOVASCULAR: S1, S2 muffled , positive systolic murmur. RESPIRATION: Breath sounds diminished in the bases,coarse. Occasional scattered fine crackles. No wheezes. Sternal wound with wound vac present ABDOMEN: Soft . No guarding. no masses palpable.Bowel sounds heard. Extremities: Positive edema PSYCHIATRY:/NERVOUS SYSTEM: Unable to assess as patient on mechanical ventilation Skin: Midsternal incision open,large amount of serosanguineous drainage,with packing, right medial buttock & right buttock skin tears, type II - III, Right lower arm Skin tear,type II, Lower back shearing injury with sloughing Microbiology 12/15/17 10:40 Bronchial Washings - Left Gram Stain - Final 12/15/17 10:40 Bronchial Washings - Left Bronchial Washings Culture - Final Rachana albicans 12/14/17 21:30 Sputum Gram Stain - Final 12/14/17 21:30 Sputum Sputum Culture - Final Rachana albicans 12/15/17 10:40 Bronchial Washings - Left Acid Fast Bacilli Smear - Final 12/15/17 10:40 Bronchial Washings - Left Acid Fast Bacilli Culture - Preliminary 12/15/17 10:40 Bronchial Washings - Left Fungal Culture - Preliminary 12/10/17 10:50 Chest Anaerobic Culture - Final 12/10/17 10:40 Chest Anaerobic Culture - Final 12/10/17 10:45 Chest Anaerobic Culture - Final 12/13/17 05:27 Urine,Catheterized Urine Culture - Final 12/10/17 10:40 Chest Gram Stain - Final 12/10/17 10:40 Chest Wound Culture - Final Serratia marcescens 12/10/17 10:45 Chest Gram Stain - Final 12/10/17 10:45 Chest Tissue Culture - Final Serratia marcescens 12/10/17 10:50 Chest Gram Stain - Final 12/10/17 10:50 Chest Tissue Culture - Final Serratia marcescens 12/10/17 10:50 Chest Acid Fast Bacilli Smear - Final 12/10/17 10:50 Chest Acid Fast Bacilli Culture - Preliminary 12/10/17 10:45 Chest Acid Fast Bacilli Smear - Final 12/10/17 10:45 Chest Acid Fast Bacilli Culture - Preliminary 12/10/17 10:50 Chest Fungal Culture - Preliminary 12/10/17 10:40 Chest Fungal Culture - Preliminary 12/10/17 10:45 Chest Fungal Culture - Preliminary 12/07/17 15:40 Chest Gram Stain - Final 12/07/17 15:40 Chest Wound Culture - Final Serratia marcescens 12/04/17 10:00 Urine,Voided Urine Culture - Final Escherichia coli Serratia marcescens 11/26/17 04:00 Sputum Gram Stain - Final 11/26/17 04:00 Sputum Sputum Culture - Final - Labs CBC & Chem 7: 12/21/17 04:50 12/21/17 04:50 Labs: Abnormal Lab Results - Last 24 Hours (Table) 12/20/17 12/21/17 12/21/17 Range/Units 18:25 04:18 04:50 WBC (3.8-10.6) k/uL RBC (3.80-5.40) m/uL Hgb (11.4-16.0) gm/dL Hct (34.0-46.0) % MCHC (31.0-37.0) g/dL RDW (11.5-15.5) % Neutrophils # (1.3-7.7) k/uL Lymphocytes # (1.0-4.8) k/uL ABG pH 7.49 H (7.35-7.45) ABG pO2 148 H (83-108) mmHg ABG HCO3 27 H (21-25) mmol/L ABG Total CO2 29 H (19-24) mmol/L ABG O2 Saturation 100.0 H (94-97) % Carbon Dioxide 32 H (22-30) mmol/L BUN 41 H (7-17) mg/dL Creatinine 0.41 L (0.52-1.04) mg/dL Glucose 100 H (74-99) mg/dL POC Glucose (mg/dL) 105 H (75-99) mg/dL Calcium 8.1 L (8.4-10.2) mg/dL AST 84 H (14-36) U/L Total Protein 5.5 L (6.3-8.2) g/dL Albumin 2.2 L (3.5-5.0) g/dL 12/21/17 12/21/17 12/21/17 Range/Units 04:50 08:34 08:35 WBC 11.7 H (3.8-10.6) k/uL RBC 2.86 L (3.80-5.40) m/uL Hgb 7.6 L (11.4-16.0) gm/dL Hct 24.9 L (34.0-46.0) % MCHC 30.4 L (31.0-37.0) g/dL RDW 19.7 H (11.5-15.5) % Neutrophils # 10.2 H (1.3-7.7) k/uL Lymphocytes # 0.7 L (1.0-4.8) k/uL ABG pH (7.35-7.45) ABG pO2 (83-108) mmHg ABG HCO3 (21-25) mmol/L ABG Total CO2 (19-24) mmol/L ABG O2 Saturation (94-97) % Carbon Dioxide (22-30) mmol/L BUN (7-17) mg/dL Creatinine (0.52-1.04) mg/dL Glucose (74-99) mg/dL POC Glucose (mg/dL) 67 L 107 H (75-99) mg/dL Calcium (8.4-10.2) mg/dL AST (14-36) U/L Total Protein (6.3-8.2) g/dL Albumin (3.5-5.0) g/dL 12/21/17 12/21/17 Range/Units 12:08 14:57 WBC (3.8-10.6) k/uL RBC (3.80-5.40) m/uL Hgb (11.4-16.0) gm/dL Hct (34.0-46.0) % MCHC (31.0-37.0) g/dL RDW (11.5-15.5) % Neutrophils # (1.3-7.7) k/uL Lymphocytes # (1.0-4.8) k/uL ABG pH (7.35-7.45) ABG pO2 (83-108) mmHg ABG HCO3 (21-25) mmol/L ABG Total CO2 (19-24) mmol/L ABG O2 Saturation (94-97) % Carbon Dioxide (22-30) mmol/L BUN (7-17) mg/dL Creatinine (0.52-1.04) mg/dL Glucose (74-99) mg/dL POC Glucose (mg/dL) 101 H 110 H (75-99) mg/dL Calcium (8.4-10.2) mg/dL AST (14-36) U/L Total Protein (6.3-8.2) g/dL Albumin (3.5-5.0) g/dL Microbiology - Last 24 Hours (Table) 12/15/17 10:40 Fungal Culture - Preliminary Bronchial Washings - Left Rachana albicans Assessment and Plan Assessment: 1. Status post CABG with mitral valve replacement 2. Acute blood loss anemia with massive blood transfusions postoperatively, in a patient with history of GI bleed 3. Hypertension 4. Left subclavian stenosis 5. Proximal atrial fibrillation/flutter status post cardioversion with recurrence of atrial fibrillation 6. Acute Hypoxic respiratory failure, Re intubated. 7. Obesity, BMI 41.6 8. S/P PICC line placement 9. 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 Acute UTI Serratia marcescens, E. coli 11. Bilateral pleural effusions, improved with diuretics. Possible aspiration pneumonia, possible fluid overload. 12. Sternal wound debridement, culture growing Serratia marcescens, placement of wound VAC. 13. Pressure ulceration of back and buttocks, stage III 14. Diarrhea, ruling out C. difficile colitis. 15. Status post bronchoscopy with left lower lobe mucous plug discovered, cultures pending Plan: Continue on current medication regime , amiodarone, metoprolol , monitoring and symptomatic treatment. Sternal wound flap grafting pending for today. Maintain IV antibiotics, nebulized bronchodilators, steroids. Prognosis guarded given multiple complex medical issues. The impression and plan of care has been dictated as directed. : I performed a history and examination of this patient, discussed the same with the dictator. I agree with the dictator's note ,documented as a scribe. Any additional findings or plans will be noted.
[2017-12-21 18:25] LABS: Glucose,Whole Blood 84 mg/dL (75-99)
[2017-12-21] MEDS: ESCITALOPRAM 10 MG TAB PO SCH (20:04)
[2017-12-21] MEDS: SENNOSIDES-DOCUSATE SODIUM 1 EACH TAB PO SCH (20:07)
--- NOTE | 2017-12-21 22:49 | P.PN ---
Subjective Progress Note Date: 12/21/17 Principal diagnosis: Sternal wound dehiscence Pleasant 67-year-old female who has an extensive past medical history who is now 14 days postoperative from her open heart procedure it which point in time a mitral valve placement occurred, reverse saphenous vein coronary artery bypass grafting 1 to obtuse marginal, Maze procedure and ligation of the left atrial appendage all occurred interoperatively left ventricular wall tear occurred and was repaired. The patient has a known history of multiple medical troubles before her surgery that included her obesity, COPD and marked deconditioning. Patient has had difficulties recently that included urinary tract infection with E. coli and Serratia and has been treated with intravenous antibiotic therapy with Zosyn. She was having some improvement but then developed dehiscence of her sternal wound and there are plans for surgical debridement tomorrow wound culture showing gram-negative bacilli and with at the infectious diseases consultation was requested. The patient continues to have significant respiratory difficulties and is currently on BiPAP for support. Postoperatively the patient was hemodynamically unstable which made even turning of the patient not possible which has resulted in unavoidable areas of skin breakdown, that are now treatable given her improvement 12/10/2017 reveals the patient to be postoperative from the sternal wound debridement. The surgical note as well as discussion with the surgical team reveals evidence of poor bone quality and all of the sternal wires had pulled through her bony areas. Negative pressure therapy is in place. She is tolerating this well. Plastic surgery consult has been requested for reconstruction of her chest in the near future. Gram-negative bacilli growing from the sternal wound. She is quite comfortable after procedure, chest tube was placed of the left cavity and this is improved some left lung function and she seems less short of breath. The daughter is present and her questions were answered. 12/11/2017 reveals the patient to have had some respiratory distress today and is back on BiPAP at this time. She relates that her pain is under much significant control. Been no other new acute complaints are being made. 12/13/2017 the patient remains in the ICU she is currently on BiPAP but relates that she is quite comfortable. We will work with the nursing staff to change her VAC dressing at this time. await the plastic surgery timeline. 12/15/2017 reveals the patient to remain in intensive care unit, her status has worsened and that she developed flash pulmonary edema and respiratory failure requiring reintubation sedation mechanical ventilation. She underwent bronchoscopy today for removal of mucous plugs and to help with the collapsed left lower lobe. The patient has require some vasopressor support but is more stable this afternoon than earlier. She is sedated and comfortable. She has significant decline of hemoglobin is 7.6. Anticoagulation was held. Is being closely monitored by surgery and they await the plastic surgery intervention. 12/16/2017 cases briefly discussed with the cardiothoracic nurse practitioner in that the wound VAC is being changed today. It is unchanged with no difficulties. No further bleeding is noted. Plastic surgery evaluation apparently will occur tomorrow so the surgical plan can be devised. 12/20/2017 since last visit current thoracic has again change the wound VAC without difficulties. She tolerated it well. She remains on the ventilator at this point in time, does not appear to have any plans for weaning because she will have her plastic closure over open chest tomorrow. She's been hemodynamically stable with intermittent atrial flutter. No significant changes of oxygen requirements, drainage from the wound VAC is minimal as is drainage from her chest tube. 12/21/2017 patient is status post the partial plastic closure of her sternal wound. Complete cardiac coverage occurred but only partial closure was possible. Oxygen requirements are improving postoperative and is being closely watched for any further blood loss anemia. Objective - Vital Signs Vital signs: Vital Signs Temp 97.7 F 12/21/17 20:00 Pulse 73 12/21/17 21:00 Resp 14 12/21/17 21:00 BP 116/54 12/19/17 10:00 Pulse Ox 100 12/21/17 21:00 Intake & Output 12/21/17 12/21/17 12/22/17 06:59 18:59 06:59 Intake Total 1559 1291 199 Output Total 948 824 6446 Balance 1064 516 -1199 Weight 112.8 kg Intake: IV 399 1141 69 Meropenem 1 gm In Sodium 100 Chloride 0.9% 100 ml @ 100 mls/hr IVPB Q8HR [facility] Rx#:[id number] Pressure Bag 39 21 9 Sodium Chloride 0.9% 1, 260 120 60 000 ml @ 20 mls/hr IV . Q24H [facility] Rx#:[id number] Intake, IV Titration 200 Amount Propofol 1,000 mg In 200 Empty Bag 1 bag @ Titrate IV .Q0M [facility]LEE Rx#: [id number] Oral 100 Tube Feeding 680 90 130 Other 180 60 Output: Chest Tube Drainage 0 20 0 Pleural Catheter Left 0 20 0 Drainage 0 280 1259 Medial Abdomen 140 1250 Medial Chest Incision - 0 0 Woundvac Right Abdomen 140 9 Urine 495 375 139 Estimated Blood Loss 100 Other: Voiding Method Indwelling Catheter Indwelling Catheter Indwelling Catheter ABP, PAP, CO, CI - Last Documented Arterial Blood Pressure 121/44 Pulmonary Artery Pressure 38/33 Cardiac Output 5.8 Cardiac Index 2.9 - Exam Obese 67-year-old woman who is now intubated sedated and mechanically ventilated HEENT: Anicteric conjunctiva are pink and moist nasal mucosa grossly intact without significant lesions, there is no thrush. Oral mucosa is dry but no swapnil lesions could be seen Neck: The neck is supple without significant lymphadenopathy or thyromegaly. Lungs: Symmetrical air entry is noted. There is scattered crackles but no swapnil bronchial sounds Heart: Irregular with an audible S1 and S2 soft S4 no audible murmur no click or rub Chest: The patient's mid sternotomy incision is now covered with a postoperative dressing from the plastic closure which is reported to be a partial flap closure Abdomen: Obese, Positive bowel sounds soft and nontender without palpable masses or organomegaly. There was no guarding or rebound. Extremities: The upper and lower extremities have evidence of edema harvest site is intact there is some bruising that is noted especially on the left groin area. IV sites are intact. Skin: There are no new lesions that are seen Neuro: Sedated while she is being mechanically ventilated - Labs CBC & Chem 7: 12/21/17 04:50 12/21/17 04:50 Labs: Abnormal Lab Results - Last 24 Hours (Table) 12/21/17 12/21/17 12/21/17 Range/Units 04:18 04:50 04:50 WBC 11.7 H (3.8-10.6) k/uL RBC 2.86 L (3.80-5.40) m/uL Hgb 7.6 L (11.4-16.0) gm/dL Hct 24.9 L (34.0-46.0) % MCHC 30.4 L (31.0-37.0) g/dL RDW 19.7 H (11.5-15.5) % Neutrophils # 10.2 H (1.3-7.7) k/uL Lymphocytes # 0.7 L (1.0-4.8) k/uL ABG pH 7.49 H (7.35-7.45) ABG pO2 148 H (83-108) mmHg ABG HCO3 27 H (21-25) mmol/L ABG Total CO2 29 H (19-24) mmol/L ABG O2 Saturation 100.0 H (94-97) % Carbon Dioxide 32 H (22-30) mmol/L BUN 41 H (7-17) mg/dL Creatinine 0.41 L (0.52-1.04) mg/dL Glucose 100 H (74-99) mg/dL POC Glucose (mg/dL) (75-99) mg/dL Calcium 8.1 L (8.4-10.2) mg/dL AST 84 H (14-36) U/L Total Protein 5.5 L (6.3-8.2) g/dL Albumin 2.2 L (3.5-5.0) g/dL 12/21/17 12/21/17 12/21/17 Range/Units 08:34 08:35 12:08 WBC (3.8-10.6) k/uL RBC (3.80-5.40) m/uL Hgb (11.4-16.0) gm/dL Hct (34.0-46.0) % MCHC (31.0-37.0) g/dL RDW (11.5-15.5) % Neutrophils # (1.3-7.7) k/uL Lymphocytes # (1.0-4.8) k/uL ABG pH (7.35-7.45) ABG pO2 (83-108) mmHg ABG HCO3 (21-25) mmol/L ABG Total CO2 (19-24) mmol/L ABG O2 Saturation (94-97) % Carbon Dioxide (22-30) mmol/L BUN (7-17) mg/dL Creatinine (0.52-1.04) mg/dL Glucose (74-99) mg/dL POC Glucose (mg/dL) 67 L 107 H 101 H (75-99) mg/dL Calcium (8.4-10.2) mg/dL AST (14-36) U/L Total Protein (6.3-8.2) g/dL Albumin (3.5-5.0) g/dL 12/21/17 Range/Units 14:57 WBC (3.8-10.6) k/uL RBC (3.80-5.40) m/uL Hgb (11.4-16.0) gm/dL Hct (34.0-46.0) % MCHC (31.0-37.0) g/dL RDW (11.5-15.5) % Neutrophils # (1.3-7.7) k/uL Lymphocytes # (1.0-4.8) k/uL ABG pH (7.35-7.45) ABG pO2 (83-108) mmHg ABG HCO3 (21-25) mmol/L ABG Total CO2 (19-24) mmol/L ABG O2 Saturation (94-97) % Carbon Dioxide (22-30) mmol/L BUN (7-17) mg/dL Creatinine (0.52-1.04) mg/dL Glucose (74-99) mg/dL POC Glucose (mg/dL) 110 H (75-99) mg/dL Calcium (8.4-10.2) mg/dL AST (14-36) U/L Total Protein (6.3-8.2) g/dL Albumin (3.5-5.0) g/dL Laboratory Results WBC 11.7 k/uL (3.8-10.6) H 12/21/17 04:50 RBC 2.86 m/uL (3.80-5.40) L 12/21/17 04:50 Hgb 7.6 gm/dL (11.4-16.0) L 12/21/17 04:50 Hct 24.9 % (34.0-46.0) L 12/21/17 04:50 MCV 87.1 fL (80.0-100.0) 12/21/17 04:50 MCH 26.4 pg (25.0-35.0) 12/21/17 04:50 MCHC 30.4 g/dL (31.0-37.0) L 12/21/17 04:50 RDW 19.7 % (11.5-15.5) H 12/21/17 04:50 Plt Count 150 k/uL (150-450) 12/21/17 04:50 Neutrophils % 88 % 12/21/17 04:50 Neutrophils % (Manual) 98 % 12/05/17 04:25 Lymphocytes % 6 % 12/21/17 04:50 Lymphocytes % (Manual) 1 % 12/05/17 04:25 Monocytes % 4 % 12/21/17 04:50 Monocytes % (Manual) 1 % 12/05/17 04:25 Eosinophils % 1 % 12/21/17 04:50 Basophils % 0 % 12/21/17 04:50 Myelocytes % 1 % 12/03/17 04:15 Neutrophils # 10.2 k/uL (1.3-7.7) H 12/21/17 04:50 Neutrophils # (Manual) 26.95 k/uL (1.3-7.7) H 12/05/17 04:25 Lymphocytes # 0.7 k/uL (1.0-4.8) L 12/21/17 04:50 Lymphocytes # (Manual) 0.28 k/uL (1.0-4.8) L 12/05/17 04:25 Monocytes # 0.4 k/uL (0-1.0) 12/21/17 04:50 Monocytes # (Manual) 0.28 k/uL (0-1.0) 12/05/17 04:25 Eosinophils # 0.2 k/uL (0-0.7) 12/21/17 04:50 Basophils # 0.0 k/uL (0-0.2) 12/21/17 04:50 Myelocytes # (Manual) 0.17 k/uL (0) H 12/03/17 04:15 Nucleated RBCs 0 /100 WBC (0-0) 12/05/17 04:25 Manual Slide Review Performed 12/05/17 04:25 Polychromasia Present 12/03/17 04:15 Hypochromasia Marked 12/21/17 04:50 Poikilocytosis Slight 12/21/17 04:50 Anisocytosis Slight 12/21/17 04:50 Microcytosis Slight 12/17/17 04:45 Target Cells Present 12/03/17 04:15 PT 10.8 sec (9.0-12.0) 12/21/17 04:50 INR 1.1 (<1.2) 12/21/17 04:50 APTT 23.9 sec (22.0-30.0) 12/21/17 04:50 Fibrinogen 334 mg/dL (200-500) 11/26/17 04:22 Sample Site kamilah 12/21/17 04:18 ABG pH 7.49 (7.35-7.45) H 12/21/17 04:18 ABG pCO2 36 mmHg (35-45) 12/21/17 04:18 ABG pO2 148 mmHg (83-108) H 12/21/17 04:18 ABG HCO3 27 mmol/L (21-25) H 12/21/17 04:18 ABG Total CO2 29 mmol/L (19-24) H 12/21/17 04:18 ABG O2 Saturation 100.0 % (94-97) H 12/21/17 04:18 ABG Base Excess 4.0 mmol/L 12/21/17 04:18 ABG Hematocrit 24 % (34.0-46.0) L 11/25/17 17:37 Robbi Test Yes 12/21/17 04:18 ABG Sodium 144 mmol/L (135-146) 11/25/17 17:37 ABG Potassium 3.8 mmol/L (3.4-4.5) 11/25/17 17:37 ABG Ionized Calcium 4.0 mg/dL (4.5-5.3) L 11/25/17 17:37 ABG Glucose 139 mg/dL (75-99) H 11/25/17 17:37 ABG Lactic Acid 2.8 mmol/L (0.5-1.6) H* 11/25/17 17:37 Hemoglobin 7.8 gm/dL (11.4-16.0) L 11/25/17 17:37 FiO2 40 % 12/21/17 04:18 Sodium 140 mmol/L (137-145) 12/21/17 04:50 Potassium 4.1 mmol/L (3.5-5.1) 12/21/17 04:50 Chloride 103 mmol/L (98-107) 12/21/17 04:50 Carbon Dioxide 32 mmol/L (22-30) H 12/21/17 04:50 Anion Gap 5 mmol/L 12/21/17 04:50 BUN 41 mg/dL (7-17) H 12/21/17 04:50 Creatinine 0.41 mg/dL (0.52-1.04) L 12/21/17 04:50 Est GFR (MDRD) Af Amer >60 (>60 ml/min/1.73 sqM) 12/07/17 04:00 Est GFR (MDRD) Non-Af >60 (>60 ml/min/1.73 sqM) 12/07/17 04:00 Est GFR (CKD-EPI)AfAm >90 (>60 ml/min/1.73 sqM) 12/21/17 04:50 Est GFR (CKD-EPI)NonAf >90 (>60 ml/min/1.73 sqM) 12/21/17 04:50 Glucose 100 mg/dL (74-99) H 12/21/17 04:50 POC Glucose (mg/dL) 84 mg/dL (75-99) 12/21/17 18:25 POC Glu [employer] ID Coreas, [place] 12/21/17 18:25 Calcium 8.1 mg/dL (8.4-10.2) L 12/21/17 04:50 Ionized Calcium Bruce 4.7 mg/dL (4.5-5.3) 12/11/17 15:45 Phosphorus 3.0 mg/dL (2.5-4.5) 12/21/17 04:50 Magnesium 2.2 mg/dL (1.6-2.3) 12/21/17 04:50 Total Bilirubin 0.6 mg/dL (0.2-1.3) 12/21/17 04:50 AST 84 U/L (14-36) H 12/21/17 04:50 ALT 40 U/L (9-52) 12/21/17 04:50 Alkaline Phosphatase 110 U/L (38-126) 12/21/17 04:50 Total Protein 5.5 g/dL (6.3-8.2) L 12/21/17 04:50 Albumin 2.2 g/dL (3.5-5.0) L 12/21/17 04:50 Arterial Blood Potassium 3.8 mmol/L (3.4-4.5) 11/25/17 17:37 Arterial Blood Glucose 139 mg/dL (75-99) H 11/25/17 17:37 Urine Color Yellow 12/04/17 10:00 Urine Appearance Cloudy (Clear) H 12/04/17 10:00 Urine pH 5.5 (5.0-8.0) 12/04/17 10:00 Ur Specific [place] 1.015 (1.001-1.035) 12/04/17 10:00 Urine Protein Trace (Negative) H 12/04/17 10:00 Urine Glucose (UA) Negative (Negative) 12/04/17 10:00 Urine Ketones Negative (Negative) 12/04/17 10:00 Urine Blood Negative (Negative) 12/04/17 10:00 Urine Nitrite Negative (Negative) 12/04/17 10:00 Urine Bilirubin Negative (Negative) 12/04/17 10:00 Urine Urobilinogen <2.0 mg/dL (<2.0) 12/04/17 10:00 Ur Leukocyte Esterase Negative (Negative) 12/04/17 10:00 Urine RBC 7 /hpf (0-5) H 12/04/17 10:00 Urine WBC 1 /hpf (0-5) 12/04/17 10:00 Ur Squamous Epith Cells 8 /hpf (0-4) H 12/04/17 10:00 Urine Bacteria Occasional /hpf (None) H 12/04/17 10:00 Urine Mucus Rare /hpf (None) H 12/04/17 10:00 Fluid Source Bronchial Wash 12/15/17 10:40 Fluid Color Colorless 12/15/17 10:40 Fluid Appearance Cloudy 12/15/17 10:40 Fluid RBC 150 /uL 12/15/17 10:40 Fluid Nucleated Cells 6900 /uL 12/15/17 10:40 Fluid Polynuclear WBCs 95 % 12/15/17 10:40 Fluid Mononuclear WBCs 5 % 12/15/17 10:40 Vancomycin Trough 19.5 ug/mL 12/19/17 09:45 Random Vancomycin 21.2 ug/mL 12/16/17 04:15 Heparin-Ind Plt Ab Scrn 0.231 OD (<0.4) 11/29/17 04:50 Virus Source See Below 12/15/17 10:40 Viral Test See Below 12/15/17 10:40 Virus Analysis Interp See Below 12/15/17 10:40 Blood Type A Positive 12/21/17 11:28 Blood Type Recheck No 12/21/17 11:28 Antibody Screen NEGATIVE 12/21/17 11:28 Crossmatch See Detail 12/14/17 10:10 Transfuse Cryo [id number] 11/26/17 00:39 Transfuse Plasma 12/15/2017 12/15/17 05:51 Transfuse Platelets [id number] 11/25/17 14:55 Spec Expiration Date 12/24/2017 - 2328 12/21/17 11:28 Microbiology 12/15/17 10:40 Bronchial Washings - Left Fungal Culture - Preliminary Rachana albicans 12/10/17 10:40 Chest Fungal Culture - Preliminary 12/10/17 10:45 Chest Fungal Culture - Preliminary 12/10/17 10:50 Chest Fungal Culture - Preliminary 12/15/17 10:40 Bronchial Washings - Left Gram Stain - Final 12/15/17 10:40 Bronchial Washings - Left Bronchial Washings Culture - Final Rachana albicans 12/14/17 21:30 Sputum Gram Stain - Final 12/14/17 21:30 Sputum Sputum Culture - Final Rachana albicans 12/15/17 10:40 Bronchial Washings - Left Acid Fast Bacilli Smear - Final 12/15/17 10:40 Bronchial Washings - Left Acid Fast Bacilli Culture - Preliminary 12/10/17 10:50 Chest Anaerobic Culture - Final 12/10/17 10:40 Chest Anaerobic Culture - Final 12/10/17 10:45 Chest Anaerobic Culture - Final 12/13/17 05:27 Urine,Catheterized Urine Culture - Final 12/10/17 10:40 Chest Gram Stain - Final 12/10/17 10:40 Chest Wound Culture - Final Serratia marcescens 12/10/17 10:45 Chest Gram Stain - Final 12/10/17 10:45 Chest Tissue Culture - Final Serratia marcescens 12/10/17 10:50 Chest Gram Stain - Final 12/10/17 10:50 Chest Tissue Culture - Final Serratia marcescens 12/10/17 10:50 Chest Acid Fast Bacilli Smear - Final 12/10/17 10:50 Chest Acid Fast Bacilli Culture - Preliminary 12/10/17 10:45 Chest Acid Fast Bacilli Smear - Final 12/10/17 10:45 Chest Acid Fast Bacilli Culture - Preliminary 12/07/17 15:40 Chest Gram Stain - Final 12/07/17 15:40 Chest Wound Culture - Final Serratia marcescens 12/04/17 10:00 Urine,Voided Urine Culture - Final Escherichia coli Serratia marcescens 11/26/17 04:00 Sputum Gram Stain - Final 11/26/17 04:00 Sputum Sputum Culture - Final Assessment and Plan (1) Severe mitral regurgitation Current Visit: Yes Status: Chronic Code(s): I34.0 - NONRHEUMATIC MITRAL ( VALVE) INSUFFICIENCY SNOMED Code(s): 42318425 (2) CAD (coronary artery disease) Current Visit: Yes Status: Chronic Code(s): I25.10 - ATHSCL HEART DISEASE OF [place] CORONARY ARTERY W/O ANG PCTRS SNOMED Code(s): 20962744 (3) Acute blood loss as cause of postoperative anemia Current Visit: Yes Status: Acute Code(s): D62 - ACUTE POSTHEMORRHAGIC ANEMIA SNOMED Code(s): 64218523835075513 (4) Pressure ulcer of contiguous region involving back and buttock, stage 3 Current Visit: Yes Status: Acute Code(s): L89.43 - PRESSR ULCER OF CONTIG SITE OF BACK, BUTTOCK AND HIP, STG 3 SNOMED Code(s): 822405584 (5) Sternal wound dehiscence Narrative/Plan: 67-year-old woman presents to Hospital for treatment of her severe mitral irritation. Underwent mitral valve replacement, coronary artery bypass grafting 1, Maze procedure and clipping of the left atrial appendage with a complication of the left ventricular wall tear. The patient has had a very protracted recovery she is now day 14 post operative and is still having difficulty with her respiratory status requiring BiPAP. The patient's nutritional status and underlying comorbidities have complicated her care. She now has evidence of the sternal dehiscence with evidence of gram negatives bacilli being found at the site. There is evidence of urinary tract infection with E. coli and Serratia. This Serratia species is somewhat resistant and consequently we'll alter the current antimicrobial therapy from Zosyn to meropenem to ensure coverage for other potential pathogens that are resistant that could be in the sternal wound while we await cultures. The patient will be going to the operating room tomorrow for debridement and wound VAC placement. The cultures were further direct the overall course of antibiotics. Urinary infection appears to be doing somewhat better. The patient fortunately is comfortable and doing well with her BiPAP. 12/10/2017 the patient is status post surgery and actually is feeling a bit better this afternoon than yesterday. Her pain is quite well controlled. She is not on BiPAP. She is less short of breath. Wound culture has verified the Serratia marcescens to the sternal wound. We'll constantly continue the current course of meropenem due to some of the resistance patterns or seeing with the species. Continue local care at this point time with the negative pressure system to the sternal wound. The plastic surgery consult is being requested for reconstruction of her chest. She will require a course of intravenous antibiotic therapy given her complex infection. Dual-lumen PICC is already in place. We'll repeat the discharge planners as to her place of rehab. 12/11/2017 the patient is metabolically stable but is having difficulties with her respiratory status and is now back on BiPAP which has been intermittent over the last multiple days. Negative pressure therapy remains intact and the sternum and we await the plastic surgery intervention. 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 Continue supportive care, and nutritional supplements as possible to improve for tissue healing. 12/13/2017 patient is on BiPAP. She is comfortable at this time. Receiving her intravenous antibiotic therapy without difficulties. At this time the surgeon present in a sterile fashion the wound VAC is removed. Surgeon evaluates and then the wound VAC is reapplied with 2 of the white foam, periwound protected with DuoDERM no difficulty with the seal. Merrem continues. 12/15/2017 the patient has had marked worsening of her status in that she had respiratory failure requiring reintubation and mechanical ventilation. She is now sedated and comfortable but has had some hemodynamic instability and is now back on vasopressor therapy. Bronchoscopy is performed and suctioning of mucous plugs as allowed some improvement of her pulmonary status. Further cultures are process. Meropenem and vancomycin continue for the isolated Serratia and concerns for resistant gram-positive infection at this time. Plastic surgery evaluation is in process and surgical plans for later this week appear to be possible. 12/16/2017 reveals the patient to be stable from the last 24 hours. Her ventilatory settings are similar. She's currently not on vasopressor therapy. She is tolerating current antibiotic therapy well with no difficulties with rash and diarrhea or marked changes of her hematological parameters. She's had no further active bleeding. Sputum culture with gram-positive cocci seen vancomycin was added we await final cultures. 12/20/2017 patient remained stable and is being prepped for her sternal reconstruction surgery tomorrow. She's not on vasopressor therapy, and vent settings are stable. Most recent bronchoscopy showed mucous plug no evidence of any new pathogens except yeast was found likely from upper airways. Fluconazole was added given her significant risks, although fungal pneumonia is not occurring at this time. At the time of reconstruction repeat samplings from her sternum will be helpful to help direct the course of antibiotic therapy , pathology and culture of the sternum will be helpful. Remains on the meropenem and vancomycin at this time. 12/21/2017 the patient is status post the sternal reconstruction with muscle flap, reportedly is only a partial closure at this time. However visit. The cardiac structure is completely covered. The patient is showing improvement in her cardiopulmonary status today. No active bleeding is noted. She is tolerating current antibiotic therapy well with meropenem and vancomycin. Await final culture and pathological data to help derive the course of her antibiotic therapy Current Visit: Yes Status: Acute Code(s): T81.32XA - DISRUPTION OF INTERNAL OPERATION (SURGICAL) WOUND, NEC, INIT SNOMED Code(s): 74203699
[2017-12-21 23:44] LABS: Glucose,Whole Blood 90 mg/dL (75-99)
--- NOTE | 2017-12-21 23:53 | OP ---
OPERATIVE REPORT PREOPERATIVE DIAGNOSIS: Open sternal wound. POSTOPERATIVE DIAGNOSIS: Open sternal wound. OPERATIVE PROCEDURE: 1. Right rectus abdominis muscle flap closure, open sternal wound. 2. Closure of sternal wound and muscle flap with skin graft substitute, 238 square cm. 3. Implantation of reconstructive graft for closure of abdominal wall wound, 300 square cm. OPERATIVE INDICATIONS: The patient is a 67-year-old female who had undergone cardiac surgery, including mitral valve replacement and coronary artery bypass grafting on November 25, 2017, for severe mitral regurgitation, coronary artery disease and atrial fibrillation. The patient's postoperative course was complicated by sternal wound infection that required return to surgery, where sternectomy and sternal wound debridement was performed. The patient was then managed with negative pressure wound therapy and had returned to the operating room for additional debridement and irrigation of the wound along with V.A.C. change. I was consulted by the patient's cardiac surgeon, Dr. Back, for reconstructive closure of the sternal wound. Several discussions were had with Dr. Back about timing of the surgery to allow the infection to clear and the wound to stabilize. The patient during that time has remained on the ventilator. The wound is reportedly healthy. Preoperatively I have met with the patient's family discussing sternal wound closure, including different muscle flap options as well as potential risks and complications related to the surgery, including but not limited to complications from the harvesting of the muscle flap, including possible hernia, wound healing problems, infection , seroma, hematoma, among others, and also complications related to the inset of the flap with flap loss, flap necrosis, wound infection, hematoma, seroma, among others. Due to the size of the patient's wound, complete closure in one surgery is unlikely, and it is expected that additional procedures will be required in the future. Consent for the surgery has been obtained. OPERATIVE PROCEDURE SUMMARY: The patient was transported directly from the ICU to the operating room. She was placed in supine position. The patient was already under mechanical ventilation. General endotracheal anesthesia was established. She was then prepped and draped in sterile fashion. Dr. Back began inspection of the sternal wound with debridement of exposed tissues and will dictate this under a separate note. I initiated harvesting of the patient's right rectus abdominis muscle flap. A paramedian midline incision was diagrammed and an incision made using a 10 blade scalpel. The paramedian approach was chosen to optimize the speed with which the muscle could be harvested to eliminate space from undermining tissues. After making the skin incision, cauterization was used to divide subcutaneous tissue until reaching the abdominal wall fascia. The anterior sheath of the rectus abdominis was identified. Skin and subcutaneous tissue flaps were then elevated off the anterior sheath of the rectus fascia until reaching the border of the anterior sheath. With this completed, an incision was made through the central portion of the anterior sheath with a 10 blade scalpel and extended with scissors both caudad and cephalad, exposing the underlying rectus abdominis muscle. The anterior sheath was then dissected from the rectus muscle. Dissection continued medially until reaching linea alba and laterally until reaching the lateral border where the rectus sheath fused. The rectus muscle was then carefully dissected from the posterior sheath from both a medial and lateral approach, taking care to identify inferior epigastric artery and vein as well as superior epigastric artery and vein and protect these structures. Dissection was performed with scissors, and cauterization was used where needed. Small vessels not required to preserve were isolated proximal and distal and ligated with small maya. The patient's superior epigastric vessel appeared adequate for perfusion. The inferior epigastric artery and vein pedicle was identified and dissected for a short distance from the patient's muscle. The artery and vein structures were isolated proximally and distally and then ligated using 3-0 silk suture ties followed by placement of maya, then division of the vessels. The distal rectus abdominis muscle was now transected with cauterization, maintaining hemostasis with cautery. The muscle was then reflected in a cephalad fashion, taking care to complete the posterior sheath dissection where small areas required some cauterization to release tissue adhesions. The patient's posterior sheath was not transected or entered. Dissection was now carried in a cephalad fashion to the patient's costal margin. Once reaching this structure, a tunnel was now created between the patient's sternal cavity and abdominal wall muscle flap dissection plane. The tunnel was subcutaneous and dissected with cauterization and blunt dissection. The tunnel was large enough to pass the surgeon's hand in a tension-free fashion. The patient' s rectus abdominis muscle was now gently rotated and passed through the tunnel under direct vision. Direct vision was used to ensure the vessels were not torsed or twisted. The muscle flap provided coverage to the patient's heart and great vessels that were exposed as well as cartilaginous edges of the ribs. The muscle flap was not sufficient to cover the patient's subcutaneous tissue or skin layers. The patient's sternal wound was quite large, measuring 17 cm vertically by 14 cm transversely. The muscle flap was laid in position but not inset as of yet. An 19 round Matt channel drain was inserted in the surgical field deep to the muscle flap tissue and brought out through a separate stab incision in the right upper quadrant abdominal wall and sutured in place with 2-0 Prolene. The drain was cut to length. While observing the muscle flap , the patient's abdominal wall muscle flap harvest wound was closed. As the likelihood of a delayed hernia was quite high, reconstructive graft was opened onto the field. SurgiMend measuring 10 x 15 cm was available, and 2 pieces were required. The patient's abdominal wall wound was 25 cm in length by 12 cm in width. This was the measured fascial defect after the harvest. Fascial edges could not be directly reapproximated to the patient's obesity and significant tension. However, the SurgiMend was placed over the posterior sheath and deep to the anterior sheath. The anterior sheath was approximated where possible at the inferior aspect using horizontal mattress sutures of 2-0 Prolene. The SurgiMend was then inset to the fascial edges using short running interrupted 2-0 Prolene, providing complete closure to the anterior sheath with a combination of SurgiMend and anterior sheath tissue. The SurgiMend did overlap the anterior sheath on the deep surface and completely covered the posterior sheath. Irrigation was performed. Hemostasis was excellent. The abdominal wall fascia was now reconstructed. A 19 round Matt channel drain was inserted in the surgical field through a separate stab incision in the right lower quadrant of the abdominal wall and sutured in place with 2-0 Prolene. Drain was cut to appropriate length. The abdominal wall wound was now closed, approximating Kim's layer using inverted interrupted 2-0 Vicryl followed by approximation of deep dermis using inverted interrupted 4-0 Monocryl, then completing the skin closure with maya. While closing the abdominal wall, several pauses occurred to inspect the muscle flap which appeared viable and healthy. The patient's muscle flap was now inset. The drain had been placed previously. The muscle flap was inset over the drain and secured just above exposed rib cartilaginous structures to muscle tissue and musculotendinous tissue where available using interrupted 4-0 Vicryl sutures. Irrigation was performed. The patient's sternal wound was large, as stated before, measuring 17 x 14 square cm , and could not be directly reapproximated to close skin due to the amount of tension this would require. Temporary closure was achieved using a skin graft substitute; Integra bilaminate wound matrix measuring 20 x 25 cm was opened onto the field. The matrix was fenestrated. Once rinsed with saline, the matrix was used to close the open sternal wound, covering the muscle flap as well as skin and subcutaneous tissue layers. Once the Integra was trimmed for insetting, Integra was secured to the skin edges using interrupted maya. Complete coverage was now obtained. A bolster graft bandage was used over the Integra; 4x4s, gauze and tape were used to cover the abdominal wall incision. Drains were connected to closed bulb suction. The patient was then transferred directly to the ICU, where she remained under mechanical ventilation. The estimated blood loss was 100 mL and there were no complications. MMMARGEL / ROLANDN: [id number] / MARAH
[2017-12-22] MEDS: IPRATROPIUM-ALBUTEROL 3 ML NEB INHALATION SCH ×6 (00:07→20:13)
[2017-12-22] MEDS: MEROPENEM 1 GM in SODIUM CHLORIDE 0.9% 100 ML IVPB SCH ×3 (00:12→15:42)
[2017-12-22] MEDS: PROPOFOL 1,000 MG in EMPTY BAG 1 BAG IV SCH (00:13)
[2017-12-22] MEDS: SODIUM CHLORIDE 0.9% 1,000 ML IV SCH ×2 (00:13→11:40)
[2017-12-22] MEDS: INSULIN ASPART 100 UNIT/ML 1 ML 10 ML VIAL SQ SCH ×4 (00:14→18:51)
[2017-12-22] MEDS: HYDROcodone/APAP 5-325MG 1 EACH TAB PO PRN (03:21)
[2017-12-22 04:50] LABS: ABG HCO3 29 mmol/L (21-25); ABG Oxygen Saturation 98.4 % (94-97); ABG PCO2 39 mmHg (35-45); ABG PH 7.49 (7.35-7.45); ABG PO2 95 mmHg (83-108); ABG TCO2 31 mmol/L (19-24)
[2017-12-22 05:00] LABS: ALT 36 U/L (9-52); AST 63 U/L (14-36); Albumin 2.2 g/dL (3.5-5.0); Alkaline Phosphatase 110 U/L (38-126); Anion Gap 4 mmol/L; Blood Urea Nitrogen 34 mg/dL (7-17); Calcium 8.1 mg/dL (8.4-10.2); Carbon Dioxide 32 mmol/L (22-30); Chloride 104 mmol/L (98-107); Glucose 87 mg/dL (74-99); Magnesium 2.2 mg/dL (1.6-2.3); Potassium 3.8 mmol/L (3.5-5.1); Sodium 140 mmol/L (137-145); Total Bilirubin 0.5 mg/dL (0.2-1.3)
[2017-12-22 05:28] LABS: Anisocytosis Slight; Basophils % (A) 0 %; Eosinophils # (A) 0.1 k/uL (0-0.7); Eosinophils % (A) 1 %; HCT 23.8 % (34.0-46.0); HGB 7.3 gm/dL (11.4-16.0); Hypochromasia Marked; Lymphocytes # (A) 0.5 k/uL (1.0-4.8); Lymphocytes % (A) 3 %; MCH 26.6 pg (25.0-35.0); MCHC 30.8 g/dL (31.0-37.0); MCV 86.6 fL (80.0-100.0); Mean Platelet Volume 8.1; Monocytes # (A) 0.5 k/uL (0-1.0); Monocytes % (A) 4 %; Neutrophils # (A) 12.2 k/uL (1.3-7.7); Neutrophils % (A) 91 %; Platelet Count 185 k/uL (150-450); Poikilocytosis Moderate; RBC 2.75 m/uL (3.80-5.40); RDW 19.6 % (11.5-15.5); WBC 13.5 k/uL (3.8-10.6)
[2017-12-22] MEDS ORDERED: POTASSIUM BICARBONATE/CIT AC 20 MEQ TABLET.EFF NG-TUBE SCH (07:00)
--- NOTE | 2017-12-22 08:17 | XR ---
EXAMINATION TYPE: XR chest 1V portable DATE OF EXAM: 12/22/2017 COMPARISON: Prior chest x-ray 12/21/2017 HISTORY: Post cardiac surgery, chest tube TECHNIQUE: Single frontal view of the chest is obtained. FINDINGS: Interval placement of surgical clips over the chest, median sternal drain suspected. Endot isabel tube, NG tube, left PICC line, left chest tube, overlying cardiac leads, atrial appendage cli pping, cardiac valve replacement and cardiomegaly are all again noted. There is improved visualizatio n of the right hemidiaphragm. Airspace disease persists in the perihilar location. No evident pneumot horax. IMPRESSION: Interval drain placement. Suspect some improvement in aeration.
[2017-12-22] MEDS: BUDESONIDE 1 MG/2 ML NEBU INHALATION SCH ×2 (08:18→20:12)
[2017-12-22] MEDS: CHLORHEXIDINE GLUCONATE 15 ML CUP MUCOUS MEM SCH ×2 (08:52→20:59)
[2017-12-22] MEDS: ATORVASTATIN 40 MG TAB PO SCH (08:52)
[2017-12-22] MEDS: AMIODARONE 200 MG TAB PO SCH ×2 (08:52→20:59)
[2017-12-22] MEDS: PANTOPRAZOLE 40 MG TABLET PO SCH (08:52)
[2017-12-22] MEDS: ASPIRIN 81 MG PO SCH (08:52)
[2017-12-22] MEDS: LACTOBACILLUS ACIDOPH & BULGAR 1 EACH PACKET PO SCH ×3 (08:53→21:00)
[2017-12-22] MEDS ORDERED: FUROSEMIDE 10 MG/ML 4 ML VIAL IV STA (09:02)
[2017-12-22] MEDS ORDERED: ALBUMIN HUMAN 25% 50 ML in EMPTY BAG 1 BAG IVPB ONE (09:02)
--- NOTE | 2017-12-22 10:15 | P.PN ---
Subjective Progress Note Date: 12/22/17 Principal diagnosis: Severe mitral regurgitation. Coronary artery disease. Paroxysmal atrial fibrillation on Coumadin for anticoagulation. Recent hospitalization for lower GI bleed, duodenal ulcer. History of left subclavian stenosis with stent placement 2014 with recent discovery of critical re-in-stent stenosis. Previous tobacco dependence with preoperative FEV1 60% of predicted. Hypertension. Hyperlipidemia. Gallbladder disease. Family history of heart disease. Preoperative nasal swab positive for MRSA. Preoperative anemia. POD #27 mitral valve replacement using a 25 mm Ribera bioprosthetic tissue valve. Coronary artery bypass grafting 1, reverse saphenous vein graft to the obtuse marginal artery. Maze procedure. Endoscopic harvesting of the right greater saphenous vein. Epi-aortic ultrasound. Intraoperative transesophageal echocardiogram. Ligation of the left atrial appendage using a 40 mm AtriClip. Intraoperative left ventricular wall tear, an unexpected but potential outcome of surgery Acute blood loss anemia, and expected outcome given patient's preoperative anemia and intraoperative bleeding. Postoperative prolonged mechanical ventilation secondary to hemodynamic instability, and unexpected but potential outcome of surgery given the extensive nature of her perioperative course Sternal incision dehiscence, a possible outcome of surgery given patient's obesity, nutrition status, debility POD #1 right rectus abdominous muscle flap closure, open sternal wound. Closure of sternal wound and muscle flap with skin graft substitute, 238 cm. Implantation of reconstructive graft for closure of abdominal wall wound, [address] Krause POD #12 sternal wound debridement with placement of wound VAC. Postoperative left lower lobe collapse secondary to mucous plugging, and unexpected but potential outcome of surgery. Bronchial washings positive for Rachana species. POD #7 bronchoscopy and bronchoalveolar lavage of the left lower lobe and extraction of mucous plug Patient's currently lying in bed in no acute distress. Remains in sinus rhythm this morning. Was just extubated to BiPAP, FiO2 40%, 10/5. No complaints at this time. Daughter is at the bedside, all questions answered. Objective - Vital Signs Vital signs: Vital Signs Temp 99.1 F 12/22/17 08:00 Pulse 76 12/22/17 09:00 Resp 13 12/22/17 09:00 BP 116/54 12/19/17 10:00 Pulse Ox 96 12/22/17 09:00 Intake & Output 12/21/17 12/22/17 12/22/17 18:59 06:59 18:59 Intake Total 1391 769 279 Output Total 785 5590 405 Balance 606 -4821 -126 Weight 114.7 kg Intake: IV 1141 279 69 Pressure Bag 21 39 9 Sodium Chloride 0.9% 1, 120 240 60 000 ml @ 20 mls/hr IV . Q24H CARLEE Rx#:[id number] Intake, IV Titration 100 Amount Propofol 1,000 mg In 100 Empty Bag 1 bag @ Titrate IV .Q0M CARLEE Rx#: [id number] Tube Feeding 90 430 150 Other 60 60 60 Output: Chest Tube Drainage 20 0 Pleural Catheter Left 20 0 Drainage 290 5154 310 Medial Abdomen 20 3618 310 Medial Chest Incision - 0 Woundvac Right Abdomen 270 1536 Urine 375 436 95 Estimated Blood Loss 100 Other: Voiding Method Indwelling Catheter Indwelling Catheter Indwelling Catheter # Voids 1 ABP, PAP, CO, CI - Last Documented Arterial Blood Pressure 96/35 Pulmonary Artery Pressure 38/33 Cardiac Output 5.8 Cardiac Index 2.9 - Constitutional General appearance: Present: cooperative, no acute distress, obese - Respiratory Details: Lungs sounds diminished bilaterally. Respirations even, nonlabored. Currently on BiPAP with FiO2 40%, 10/5. Left pleural chest tube to continuous wall suction, no drainage in 24 hours. No air leak present. - Cardiovascular Details: S1, S2 present. Regular rate and rhythm, sinus rhythm on telemetry. Open chest with surgically implanted dressing over muscle flap. Palpable peripheral pulses bilaterally. Generalized edema present. No calf pain or tenderness noted. Right brachial arterial line, left brachial PICC line present. Antiembolism stockings, SCDs present. - Gastrointestinal Gastrointestinal Comment(s): Abdomen soft, nontender, nondistended. Active bowel sounds 4 quadrants. Was receiving tube feedings this morning through OG tube and tolerating well. - Genitourinary Genitourinary Comment(s): Mason present draining clear, yellow urine. Output 30-35 mL/h overnight. - Integumentary Integumentary Comment(s): Skin is warm and dry. Chest opened with dressing in place. Stage II to sacrum with local wound care in place. Abdominal incisions with HENRI drains putting out copious amount of serous drainage. - Neurologic Neurologic: Present: CNII-XII intact - Musculoskeletal Musculoskeletal: Present: generalized weakness - Psychiatric Psychiatric: Present: A&O x's 3, appropriate affect, intact judgment & insight - Allied health notes Allied health notes reviewed: nursing - Labs CBC & Chem 7: 12/22/17 04:15 12/22/17 04:15 Labs: Abnormal Lab Results - Last 24 Hours (Table) 12/21/17 12/21/17 12/22/17 Range/Units 12:08 14:57 04:15 WBC 13.5 H (3.8-10.6) k/uL RBC 2.75 L (3.80-5.40) m/uL Hgb 7.3 L (11.4-16.0) gm/dL Hct 23.8 L (34.0-46.0) % MCHC 30.8 L (31.0-37.0) g/dL RDW 19.6 H (11.5-15.5) % Neutrophils # 12.2 H (1.3-7.7) k/uL Lymphocytes # 0.5 L (1.0-4.8) k/uL ABG pH (7.35-7.45) ABG HCO3 (21-25) mmol/L ABG Total CO2 (19-24) mmol/L ABG O2 Saturation (94-97) % Carbon Dioxide (22-30) mmol/L BUN (7-17) mg/dL Creatinine (0.52-1.04) mg/dL POC Glucose (mg/dL) 101 H 110 H (75-99) mg/dL Calcium (8.4-10.2) mg/dL AST (14-36) U/L Total Protein (6.3-8.2) g/dL Albumin (3.5-5.0) g/dL 12/22/17 12/22/17 Range/Units 04:15 04:49 WBC (3.8-10.6) k/uL RBC (3.80-5.40) m/uL Hgb (11.4-16.0) gm/dL Hct (34.0-46.0) % MCHC (31.0-37.0) g/dL RDW (11.5-15.5) % Neutrophils # (1.3-7.7) k/uL Lymphocytes # (1.0-4.8) k/uL ABG pH 7.49 H (7.35-7.45) ABG HCO3 29 H (21-25) mmol/L ABG Total CO2 31 H (19-24) mmol/L ABG O2 Saturation 98.4 H (94-97) % Carbon Dioxide 32 H (22-30) mmol/L BUN 34 H (7-17) mg/dL Creatinine 0.50 L (0.52-1.04) mg/dL POC Glucose (mg/dL) (75-99) mg/dL Calcium 8.1 L (8.4-10.2) mg/dL AST 63 H (14-36) U/L Total Protein 5.0 L (6.3-8.2) g/dL Albumin 2.2 L (3.5-5.0) g/dL Microbiology - Last 24 Hours (Table) 12/10/17 10:50 Acid Fast Bacilli Smear - Final Chest Acid Fast Bacilli Culture - Preliminary 12/10/17 10:45 Acid Fast Bacilli Smear - Final Chest Acid Fast Bacilli Culture - Preliminary - Imaging and Cardiology Chest x-ray: report reviewed, image reviewed Assessment and Plan (1) Acute blood loss anemia Current Visit: Yes Status: Acute Code(s): D62 - ACUTE POSTHEMORRHAGIC ANEMIA SNOMED Code(s): 415666447 (2) CAD (coronary artery disease) Current Visit: Yes Status: Chronic Code(s): I25.10 - ATHSCL HEART DISEASE OF [place] CORONARY ARTERY W/O ANG PCTRS SNOMED Code(s): 67484434 (3) Hyperlipidemia Current Visit: Yes Status: Chronic Code(s): E78.5 - HYPERLIPIDEMIA, UNSPECIFIED SNOMED Code(s): 53331291 (4) Hypertension Current Visit: Yes Status: Chronic Code(s): I10 - ESSENTIAL (PRIMARY) HYPERTENSION SNOMED Code(s): 94173594 (5) Severe mitral regurgitation Current Visit: Yes Status: Chronic Code(s): I34.0 - NONRHEUMATIC MITRAL ( VALVE) INSUFFICIENCY SNOMED Code(s): 84250653 (6) Stenosis of left subclavian artery Current Visit: Yes Status: Chronic Code(s): I77.1 - STRICTURE OF ARTERY SNOMED Code(s): 85096862591299368 (7) Paroxysmal atrial fibrillation Current Visit: No Status: Resolved Code(s): I48.0 - PAROXYSMAL ATRIAL FIBRILLATION SNOMED Code(s): 616516439 (8) History of GI bleed Current Visit: No Status: Resolved Code(s): Z87.19 - PERSONAL HISTORY OF OTHER DISEASES OF THE DIGESTIVE SYSTEM SNOMED Code(s): 471421807 (9) Family history of coronary artery disease Current Visit: Yes Status: Chronic Code(s): Z82.49 - FAMILY HX OF ISCHEM HEART DIS AND OTH DIS OF THE CIRC SYS SNOMED Code(s): 820944765 Plan: 1. Continue baby aspirin, statin, beta krunal. 2. Continue amiodarone for atrial fibrillation prophylaxis. No further IV amiodarone. 3. BiPAP management per pulmonology. Wean as tolerated. 4. Continue meropenem, Vanco per Dr. Olivera. Continue Diflucan. 5. Will monitor labs, chest x-rays. 6. Bronchodilators per pulmonology. 7. Will hold off on Coumadin for now as patient will need for future surgery. No IV heparin. 8. GI/DVT prophylaxis. 9. Increase activity. PT/OT/cardiac rehab following. 10. Will place Dobbhoff if patient unable to tolerate oral feedings. 11. Keep Mason for strict accurate intake and output. 12. Will discontinue pleural chest tube. 13. Will give Lasix IV push plus IV albumin 1 today. 14. Dressing change to sternum to be done daily by nurse practitioners. 15. More recommendations as patient progresses. Time with Patient: Greater than 30
--- NOTE | 2017-12-22 10:32 | P.PN ---
Subjective Progress Note Date: 12/22/17 Principal diagnosis: Status post one-vessel bypass grafting and mitral valve replacement Progress note dated 11/29/2017 This is a 67-year-old female status post one-vessel bypass grafting and mitral valve replacement. She apparently had surgery on the . Today is postop day #3. The patient currently remains on the mechanical ventilator. Her vent settings are the assist control mode rate of 1210 of I am is 550 FiO2 50% PEEP of 5. Arterial blood gases show a PaO2 of 135 a PaCO2 of 36 and a pH of 7.47. I'm to make a few changes including bumping the rate up from 12 to 20, and decreasing the tidal volume from 550 down to 400, and dropping the FiO2 from 50- 40%. The patient may not be weaned of old low because she remains on insulin drip at 1 unit per hour, Primacor 0.2 mics per kilogram per minute, norepinephrine at 2 mics per minute, half normal saline at 30 mL an hour and propofol at 25 g kilogram per minute. Chest x-rays consistent with fluid overload but bibasilar infiltrates and small effusions and microbiology is negative. The rest of the labs medications and x-rays are all reviewed. Progress note dated 11/30/2017 This is a 67-year-old female status post one-vessel bypass grafting and mitral valve replacement. She had surgery on the . She is postop day #4. She remains on mechanical ventilator. Yesterday, her chest x-ray showed evidence of fluid overload. She did get some diuretics. Today's chest x-ray still shows evidence of fluid overload although it might be slightly improved. She's currently still on the mechanical ventilator on the assist control mode, rate of 26, tidal volume 400, PEEP of 8, FiO2 40%. The patient's arterial blood gases show a PaO2 of 94 and pH 7.46 in a PaCO2 of 41. The patient will get a daily eruption of sedation and a spontaneous breathing trial. The patient remains on norepinephrine at 3 mcg/m, propofol at 30 mics per kilogram per minute, Primacor 0.2 mics per kilogram per minute, half normal saline IV at 15 mL an hour and vital 1.2 at 60 with a goal of 60 mL an hour. The patient failed her spontaneous breathing trial yesterday very quickly, and afterwards, she became dyssynchronous with the ventilator and I had to bump up the PEEP level to 8 and increase her respiratory rate to 26. We also dropped the tidal volume down to 400. She is much more in synchrony today. Progress note dated 12/01/2017 This is a 67-year-old female who is postop day #5, status post one-vessel bypass grafting and mitral valve replacement. She also has a history of postoperative respiratory failure with failure to wean. She was extubated yesterday though. Chest x-ray has evidence of fluid overload which actually is improved. In addition, the patient had acute blood loss anemia requiring blood transfusion postsurgically, hypertension severe mitral regurgitation left subclavian stenosis paroxysmal atrial fibrillation GI bleed and obesity. Yesterday, post extubation we gave the patient 1 shot of Solu-Medrol 60 mg IV push and also put her on BiPAP at 14/5 and 40%. Chest x-ray does show improvement. Today her hemoglobin is below 7 and she'll receive 1 unit of blood followed by some Lasix IV. In addition, I may add on some IV site Medrol and a smaller dose than normal and also some Pulmicort 1 mg twice a day. Progress note dated 12/02/2017 67-year-old female who is postop day #6 status post single-vessel bypass grafting and mitral valve replacement. The patient has been doing very well the last day and a half to 2 days. She has a history of postoperative respiratory failure and initially, failure to wean. She was extubated 2 days ago. She has had to use of BiPAP on and off since that time. She did receive 1 unit of PRBCs yesterday followed by some Lasix 40 mg IV push. Her chest x- ray my opinion still so-so some fluid overload with a small pool of pleural effusion. Other than that, the patient seemed be doing relatively well. She has a history of hypertension severe mitral regurgitation blood loss anemia following surgery left subclavian stenosis paroxysmal atrial fibrillation GI bleed and obesity. This morning, she'll come off the BiPAP and go back to nasal O2. She prefers a nasal O2 over the BiPAP device. She may have had an episode of aspiration last night. Speech pathology was consulted. In addition , I did check for a DVT in the right upper extremity and the Doppler was negative. Progress note dated 12/03/2017 67-year-old female postop day #7, status post single-vessel bypass grafting and mitral valve replacement. The patient has been doing relatively well although this morning she was a bit more short of breath. Chest x-ray does show some fluid overload. She's been on and off of BiPAP. This morning she was on O2 nasal cannula at 3 L. The cardiothoracic practitioner thought she was a bit more short of breath I went and saw her. I looked at her chest x-ray. We asked her to go back on BiPAP at 14 and 5 and 40% and we also gave her Lasix 60 mg IV push. She seemed be doing a lot better now. She's not receiving any IV fluids. Chest x-ray does show fluid overload. Again the Lasix was given this morning. She was a bit to This morning. Breathing about 25 times a minute. No swapnil distress. In addition, she has a history of hypertension severe mitral regurgitation blood loss anemia following her open heart surgery, left subclavian artery stenosis paroxysmal atrial fibrillation GI bleed and obesity. Progress note dated 12/04/2017 67-year-old female, postop day #8, status post single-vessel bypass grafting and mitral valve replacement. The patient's overall situation is been reasonable. She seemed to do do better while she is on BiPAP therapy. When she is a bit more short of breath, she does poorly when she's not on BiPAP. Chest x-ray shows some fluid overload. She has some cephalization to the upper lobes. In addition, she is either consolidation atelectasis or infiltrates in the lower lobes. In addition, probably has some pleural effusions bilaterally. Currently she is on 7 L high flow. She's not receiving any IV fluids. When she is on BiPAP, she is on settings of 14 and 5 and 40%. She did receive some Lopressor for atrial fibrillation with RVR. Cardiothoracic surgery ask about antibiotics for possible pneumonia. Is not unreasonable to add some antibiotics to her regimen. She may have some pneumonia hiding in the lung spaces bilaterally. She isn't producing any phlegm. There's been no fever or chills. Other than that, she is doing reasonably well. Labs x-rays a medications are all reviewed. Progress note dated 12/20/2017 This is a 67-year-old female here in the hospital since November 25. The patient had a one-vessel bypass on the any mitral valve repair/replacement as well as a modified maze procedure on the . She was initially extubated on November 30 of BiPAP. When I left her last, which was on December 04, she was postop day #8 status post bypass grafting and mitral valve replacement. She seemed to do pretty well at that time on BiPAP therapy. Since that time, she's had a cardioversion on December 07 a dehiscence of her sternal wound on December 08 and a sister neck to me on December 10. She currently remains intubated. She has been on PSV 10 CPAP and yesterday she spent 10-12 hours on the settings. She apparently is going for a flap repair on December 21 which is tomorrow. She's getting saline IV at KVO and vital high protein at 40. Her vent settings include the assist control mode rate of 14 tidal volume 500 FiO2 40% PEEP of 5. Arterial blood gases show a PaO2 of 108 a PaCO2 of 45 and a pH of 7.47. I'm inclined not to wean her today given the fact that she'll be going for a flap repair tomorrow. In addition, her respiratory rates a bit high in her heart rate is high. We will go do a daily interruption of sedation and attempt a spontaneous breathing trial. Progress note dated 12/21/2017 This is a 67-year-old female here in the hospital since every . The patient had a one-vessel bypass on the and mitral valve replacement. She also had a modified maze procedure on the same day. She was initially extubated on eic 2 BiPAP. When I left her last, she was doing recently well on and off of BiPAP. Currently, the patient is going to the operating room today for a flap repair to be done by the plastic surgeon. The patient had a cardioversion on December 07, a dehiscence of her sternal incision on December 08, and a sternectomy on December 10. Currently, she is on the assist control mode with a tidal volume 500, a rate of 14, and FiO2 of 40% to be reduced down to 30%, and a PEEP of 5. Arterial blood gases show a PaO2 of 148, a PaCO2 of 36 and a pH of 7.49. The patient's on a saline IV at 20 mL an hour, propofol at 30 mics per kilogram per minute tube feeds which are on hold for the surgery. Again she is going to have a flap repair today. Chest x-ray shows similar changes to yesterday. Progress note dated 12/22/2017 67-year-old female who's been in the hospital since November 25. The patient had a one-vessel bypass grafting on the and mitral valve replacement. She also had a modified maze procedure on the same day. She was initially extubated on November 30 to BiPAP. The patient had also to complications after I saw her last including on the need for cardioversion on December 07, dehiscence of her sternal incision on December 08, and sternectomy on December 10. Yesterday, she had a flap repair done by one of the plastic surgeons. She is postop day #1 for that. This morning she was on the assist control mode rate of 14, tidal volume 500, FiO2 30%, and PEEP of 5. Her arterial blood gases show a PaO2 of 95 a PaCO2 of 39 and a pH of 7.49. At that time the patient was on propofol at 25 mcg/m, a saline IV at KVO and vital high protein at a rate of 30 with a goal of 40. The patient looks great today and we went ahead and extubated her to BiPAP. She is on 10 and 5 and 40%. Seemed be doing relatively well with that at the current time. Objective - Vital Signs Vital signs: Vital Signs Temp 99.1 F 12/22/17 08:00 Pulse 76 12/22/17 09:00 Resp 13 12/22/17 09:00 BP 116/54 12/19/17 10:00 Pulse Ox 96 12/22/17 09:00 Intake & Output 12/21/17 12/22/17 12/22/17 18:59 06:59 18:59 Intake Total 1391 769 332 Output Total 498 3343 480 Balance 606 -4821 -148 Weight 114.7 kg Intake: IV 1141 279 92 Pressure Bag 21 39 12 Sodium Chloride 0.9% 1, 120 240 80 000 ml @ 20 mls/hr IV . Q24H CARLEE Rx#:[id number] Intake, IV Titration 100 Amount Propofol 1,000 mg In 100 Empty Bag 1 bag @ Titrate IV .Q0M CARLEE Rx#: [id number] Tube Feeding 90 430 180 Other 60 60 60 Output: Chest Tube Drainage 20 0 Pleural Catheter Left 20 0 Drainage 290 5154 360 Medial Abdomen 20 3618 360 Medial Chest Incision - 0 Woundvac Right Abdomen 270 1536 Urine 375 436 120 Estimated Blood Loss 100 Other: Voiding Method Indwelling Catheter Indwelling Catheter Indwelling Catheter # Voids 1 ABP, PAP, CO, CI - Last Documented Arterial Blood Pressure 96/35 Pulmonary Artery Pressure 38/33 Cardiac Output 5.8 Cardiac Index 2.9 - Exam No acute distress, The patient's currently intubated and on the ventilator. HEENT examination is grossly unremarkable. Mucous membranes are moist. No oral lesions. Neck supple. Full range of motion. No adenopathy thyromegaly or neck vein distention. Cardiovascular examination reveals regular rhythm rate. S1-S2 normal. No S3 or S4. No discernible murmur noted. Lungs reveal very coarse bilateral breath sounds. Her sounds are equal bilaterally. No wheezes. A few scattered crackles. Abdomen soft bowel sounds are heard. No masses or tenderness. Extremities are intact. No cyanosis or clubbing. There is slight edema. Skin is without rash or lesion. Neurologic examination is difficult to assess, but she is awake and alert - Labs CBC & Chem 7: 12/22/17 04:15 12/22/17 04:15 Labs: Abnormal Lab Results - Last 24 Hours (Table) 12/21/17 12/21/17 12/22/17 Range/Units 12:08 14:57 04:15 WBC 13.5 H (3.8-10.6) k/uL RBC 2.75 L (3.80-5.40) m/uL Hgb 7.3 L (11.4-16.0) gm/dL Hct 23.8 L (34.0-46.0) % MCHC 30.8 L (31.0-37.0) g/dL RDW 19.6 H (11.5-15.5) % Neutrophils # 12.2 H (1.3-7.7) k/uL Lymphocytes # 0.5 L (1.0-4.8) k/uL ABG pH (7.35-7.45) ABG HCO3 (21-25) mmol/L ABG Total CO2 (19-24) mmol/L ABG O2 Saturation (94-97) % Carbon Dioxide (22-30) mmol/L BUN (7-17) mg/dL Creatinine (0.52-1.04) mg/dL POC Glucose (mg/dL) 101 H 110 H (75-99) mg/dL Calcium (8.4-10.2) mg/dL AST (14-36) U/L Total Protein (6.3-8.2) g/dL Albumin (3.5-5.0) g/dL 12/22/17 12/22/17 Range/Units 04:15 04:49 WBC (3.8-10.6) k/uL RBC (3.80-5.40) m/uL Hgb (11.4-16.0) gm/dL Hct (34.0-46.0) % MCHC (31.0-37.0) g/dL RDW (11.5-15.5) % Neutrophils # (1.3-7.7) k/uL Lymphocytes # (1.0-4.8) k/uL ABG pH 7.49 H (7.35-7.45) ABG HCO3 29 H (21-25) mmol/L ABG Total CO2 31 H (19-24) mmol/L ABG O2 Saturation 98.4 H (94-97) % Carbon Dioxide 32 H (22-30) mmol/L BUN 34 H (7-17) mg/dL Creatinine 0.50 L (0.52-1.04) mg/dL POC Glucose (mg/dL) (75-99) mg/dL Calcium 8.1 L (8.4-10.2) mg/dL AST 63 H (14-36) U/L Total Protein 5.0 L (6.3-8.2) g/dL Albumin 2.2 L (3.5-5.0) g/dL Microbiology - Last 24 Hours (Table) 12/10/17 10:50 Acid Fast Bacilli Smear - Final Chest Acid Fast Bacilli Culture - Preliminary 12/10/17 10:45 Acid Fast Bacilli Smear - Final Chest Acid Fast Bacilli Culture - Preliminary Assessment and Plan Assessment: Assessment Postop day #23 status post one-vessel bypass grafting and mitral valve replacement Postoperative respiratory failure with failure to wean, with extubation occurring on 11/30/2017 Status post cardioversion on December 07 Status post wound dehiscence on December 08 Status post sternotomy on December 10 Anticipated flap repair on 12/21/2017, postop day #1 Reintubation and mechanical ventilation with failure to wean Chest x-ray evidence of fluid overload Acute blood loss anemia requiring blood transfusion History of hypertension History of severe mitral regurgitation History of left subclavian stenosis Paroxysmal atrial fibrillation History of GI bleed Obesity Possible aspiration with aspiration pneumonia Plan: Plan dated 11/29/2017 I will make some vent changes today including repeat increasing the rate from 12 -20, dropping the time of I'm down from 550 mL down to 400 mL and also reducing the FiO2 40%. We'll see if we can wean her off the norepinephrine holding propofol and do a daily eruption of sedation to evaluate for spontaneous breathing trial. Microbiology is negative. Labs x-rays and medications all reviewed. Prognosis is guarded. Additional recommendations and suggestions are forthcoming. I believe she would benefit from some diuretics. Blood gases are reviewed. Plan dated 11/30/2017 The patient will again have a daily eruption of sedation with a spontaneous breathing trial. She still remains on a number of different IV medications including norepinephrine, fall, Primacor. Arterial blood gases today are very reasonable. Her vent settings were adjusted yesterday. She's getting nourishment. We'll continue to follow closely. Labs x-rays a medications are reviewed. Hopeful improvement in the next day or so and eventual extubation. Plan dated 11/23/2017 The patient seems to be doing a bit better. Her chest x-ray certainly improved. She'll receive 1 unit of blood. She feels better. She still on BiPAP. She has significant edema throughout. Chest x-ray is improved. I do agree with 1 unit of blood followed by Salma. We'll continue to follow closely. Medications x-rays and labs are reviewed. Plan dated 12/02/2017 The patient will come off the BiPAP morning go back on nasal O2. Speech pathology was consulted. Chest x-ray looks about the same or slightly better. Still showing a bit of fluid overload. In addition, a Doppler of the right upper extremity was negative for DVT. The patient otherwise seems be doing reasonably well. We'll continue to follow. She is on Primacor and 0.2 mics per kilogram per minute and a half normal saline IV at KVO. BiPAP settings are 14/5 and 40%. Critical care time 34 minutes The patient is doing better after the BiPAP was placed on her. The patient also received Lasix 60 mg IV push. The patient's chest x-ray labs and medications are all reviewed. She's not receiving any additional fluid. We'll continue to follow. Prognosis is guarded. Critical care time 34 minutes. Plan dated 12/04/2017 The patient seemed be doing about the same as she was yesterday. Chest x-ray, in my opinion still shows evidence of fluid overload. She has cephalization and bilateral pleural effusions. Is a possibility she could have pneumonia. She's not producing any phlegm. She's been afebrile. I will add some Zosyn to her regimen. It certainly empiric. She should spend some time on BiPAP as well as a nasal O2. She seemed to do better on the BiPAP at 14 and 5 and 40%. She did have to receive some Lopressor for atrial fibrillation and RVR. I'm sure that's contributing to her shortness of breath as well. She does not have a lot of reserve. Prognosis is guarded. Plan dated 12/20/2017 I'm sorry to see that the patient still here in the ICU. It appears the patient 's had a number of different complications since I saw her last on December 04 including but not limited to cardioversion sternal dehiscence neck to me and anticipated flat repair tomorrow. The patient will be given a daily eruption of sedation and a spontaneous breathing trial. I'm not hopeful given her chronic illness for the current time. Additional recommendations and suggestions are forthcoming. In my opinion, we'll need a tracheostomy. We'll continue to follow. Prognosis is guarded. Meds labs and x-rays are all reviewed. Critical care time 31 minutes Plan dated 12/21/2017 The patient down is going to go to the operating room today for a flap repair by the plastic surgeon. No weaning today. Overall prognosis remains guarded. Labs x-rays a medications are all reviewed. We will continue to follow the patient and provide full supportive care with hopeful full recovery. Critical care time 30 minutes Plan dated 12/22/2017 The patient seemed be doing relatively well. Her weaning parameters were reasonably good. She passed her cuff leak. We went ahead and extubated her to BiPAP at 10 and 5 and 40%. We'll continue to watch her carefully. Her chest x- ray looked improved. There was small effusions bilaterally. We'll continue to follow. Prognosis is guarded. Critical care time is 33 minutes Time with Patient: Greater than 30
[2017-12-22] MEDS ORDERED: MORPHINE SULFATE/PF 10MG/10ML VL IVP STA (11:16)
[2017-12-22] MEDS ORDERED: VANCOMYCIN TROUGH DUE 1 EACH MISC MISCELLANE ONE (12:00)
[2017-12-22] MEDS: VANCOMYCIN 1,500 MG in SODIUM CHLORIDE 0.9% 250 ML IVPB SCH (12:31)
[2017-12-22 12:34] LABS: Glucose,Whole Blood 98 mg/dL (75-99)
--- NOTE | 2017-12-22 13:06 | PN ---
PROGRESS NOTE Maritza is a 67-year-old lady with coronary artery disease, status post CABG, mitral regurgitation status post mitral valve replacement, who has had a fairly prolonged hospital course secondary to sternal wound dehiscence, underwent flap surgery yesterday. This morning, she is extubated, looks good, remains in sinus rhythm. Hemodynamically stable. On exam, there is no jugular venous distention. Chest exam reveals good air entry bilaterally. Heart exam reveals first and second heart sounds. No gallop. Exam of extremities did not reveal any edema. Patient is currently on Cordarone 200 b.i.d., aspirin, Lipitor, Lopressor 50 b.i.d. ASSESSMENT: 1. Coronary artery disease, status post coronary artery bypass grafting. 2. Mitral regurgitation, status post mitral valve replacement. 3. Sternal wound dehiscence, status post surgery. 4. Paroxysmal atrial fibrillation. The patient will continue with current medications and anticoagulation for atrial fibrillation as per CT surgery. MMODL / IJN: [id number] /
[2017-12-22] MEDS: ACETAMINOPHEN IV (For NPO) 1,000 MG in EMPTY BAG 1 BAG IVPB SCH ×2 (15:27→21:00)
[2017-12-22] MEDS: HEPARIN SODIUM,PORCINE 5,000 UNIT/ML 1 ML VIAL SQ SCH ×2 (15:35→15:42)
[2017-12-22] MEDS: METOPROLOL TARTRATE 50 MG TAB PO SCH (15:37)
[2017-12-22] MEDS: FLUCONAZOLE IN NACL,ISO-OSM 200 MG in SALINE 1 100ML.BAG IVPB SCH (16:39)
--- NOTE | 2017-12-22 17:33 | P.PN ---
Subjective Progress Note Date: 12/22/17 Progress note being dictated for Dr. Lugo Interval history: This is 67-year-old female status post CABG, mitral valve replacement, status post multiple blood products transfusions. Remains vent dependent on 40% FiO2/+5 of PEEP. Chest x-ray reporting fluid overload, improvement in volume status, aeration.Maintained on norepinephrine, Primacor, dopamine and insulin drip. Cardiac index 2.7. Telemetry atrial flutter/sinus tach. Tube feeding initiated via OG tube. Hemoglobin 7.3, Platelets decreased to 64 today, maintained on low-dose aspirin. Review systems unable to obtain as patient sedated and on mechanical ventilation. Active Medications Albuterol/Ipratropium (Duoneb 0.5 Mg-3 Mg/3 Ml Soln) 3 ml INHALATION RT-Q4H [facility] Last Admin: 11/29/17 15:17 Dose: 3 ml Albuterol/Ipratropium (Duoneb 0.5 Mg-3 Mg/3 Ml Soln) 3 ml INHALATION RT-Q2H PRN PRN Reason: Shortness Of Breath Or Wheezing Amiodarone HCl (Cordarone) 200 mg PO BID [facility] Aspirin (Aspirin) 81 mg PO DAILY [facility] Last Admin: 11/29/17 08:54 Dose: 81 mg Atorvastatin Calcium (Lipitor) 40 mg PO DAILY [facility] Last Admin: 11/29/17 08:54 Dose: 40 mg Benzocaine/Menthol (Cepacol Lozenge) 1 each MUCOUS MEM Q2H PRN PRN Reason: Sore Throat Bisacodyl (Dulcolax) 10 mg RECTAL DAILY PRN PRN Reason: Constipation Chlorhexidine Gluconate (Peridex) 15 ml MUCOUS MEM BID [facility] Last Admin: 11/29/17 08:48 Dose: 15 ml Furosemide (Lasix) 40 mg IV ONCE ONE Stop: 11/29/17 20:01 Propofol 1,000 mg/ IV Solution 100 mls @ 0 mls/hr IV .Q0M [facility]; Titrate PRN Reason: Protocol Last Admin: 11/29/17 17:54 Dose: 26.13 mcg/kg/min, 17.2 mls/hr Norepinephrine Bitartrate (Levophed-0.9% Nacl 16 Mg/250ml Pmx) 16 mg in 250 mls @ 0 mls/hr IV .Q0M [facility]; Titrate PRN Reason: Protocol Last Admin: 11/29/17 17:54 Dose: 2 mcg/min, 1.875 mls/hr Sodium Chloride (Saline 0.45%) 1,000 mls @ 30 mls/hr IV .Q24H [facility] Last Admin: 11/29/17 10:28 Dose: Not Given Milrinone Lactate/Dextrose 20 (mg/ IV Solution) 100 mls @ 6.58 mls/hr IV .[id number] [facility] PRN Reason: 0.2 MCG/KG/MIN Last Admin: 11/29/17 15:38 Dose: 0.2 mcg/kg/min, 6.58 mls/hr Insulin Aspart (Novolog) 0 unit SQ Q6HR [facility] PRN Reason: Protocol Last Admin: 11/29/17 12:36 Dose: Not Given Magnesium Hydroxide (Milk Of Magnesia) 2,400 mg PO BID PRN PRN Reason: Constipation Metoprolol Tartrate (Lopressor) 12.5 mg PO BID [facility] Last Admin: 11/29/17 08:55 Dose: 12.5 mg Miscellaneous Information (Magnesium Per Protocol) 1 each MISCELLANE DAILY PRN ; Protocol PRN Reason: Per Protocol Miscellaneous Information (Phosphorus Per Protocol) 1 each MISCELLANE DAILY PRN ; Protocol PRN Reason: Per Protocol Miscellaneous Information (Potassium Per Protocol) 1 each MISCELLANE DAILY PRN ; Protocol PRN Reason: Per Protocol Miscellaneous Information (Potassium Per Protocol) 1 each MISCELLANE DAILY PRN ; Protocol PRN Reason: Per Protocol Morphine Sulfate (Morphine Oral Dana 2mg/Ml) 6 mg PO Q2H PRN PRN Reason: Severe Pain Ondansetron HCl (Zofran) 4 mg IVP Q6HR PRN PRN Reason: Nausea And Vomiting Pantoprazole Sodium (Protonix) 40 mg IVP DAILY [facility] Last Admin: 11/29/17 08:55 Dose: 40 mg Senna/Docusate Sodium (Senokot-S) 2 each PO HS [facility] Last Admin: 11/28/17 20:41 Dose: 2 each Sodium Chloride (Saline Flush) 10 ml IV BID [facility] Last Admin: 11/29/17 08:56 Dose: 10 ml 11/30/2017 Chest x-ray reporting increased congestion, received additional Lasix. extubated this morning, currently maintained on BiPAP. Norepinephrine weaned off this morning. Maintained on Primacor, cardiac index 2.6. Received 1 dose of Lasix IV push. Renal function improving. Hemoglobin 7, platelets increased to 74. Atrial flutter per telemetry. Review systems unable to obtain as patient BiPAP dependent. Active Medications Generic Name Dose Route Start Last Admin Trade Name Freq PRN Reason Stop Dose Admin Albuterol/Ipratropium 3 ml 11/25/17 20:00 11/30/17 15:23 Duoneb 0.5 Mg-3 Mg/3 Ml Soln INHALATION 3 ml RT-Q4H [facility] Administration Albuterol/Ipratropium 3 ml 11/26/17 17:53 Duoneb 0.5 Mg-3 Mg/3 Ml Soln INHALATION RT-Q2H PRN Shortness Of Breath Or Wheezing Amiodarone HCl 200 mg 11/29/17 21:00 11/30/17 08:14 Cordarone PO 200 mg BID [facility] Administration Aspirin 81 mg 11/26/17 10:15 11/30/17 08:15 Aspirin PO 81 mg DAILY [facility] Administration Atorvastatin Calcium 40 mg 11/26/17 09:00 11/30/17 08:14 Lipitor PO 40 mg DAILY [facility] Administration Benzocaine/Menthol 1 each 11/25/17 19:03 Cepacol Lozenge MUCOUS MEM Q2H PRN Sore Throat Bisacodyl 10 mg 11/26/17 17:52 Dulcolax RECTAL DAILY PRN Constipation Fondaparinux 2.5 mg 11/30/17 11:30 11/30/17 13:23 Arixtra SQ 2.5 mg DAILY [facility] Administration Norepinephrine Bitartrate 16 mg in 250 mls @ 0 mls/hr 11/26/17 04:15 11:58 Levophed-0.9% Nacl 16 Mg/250ml Pmx IV 0 mcg/min .Q0M [facility] 0 mls/hr Protocol Titration Titrate Sodium Chloride 1,000 mls @ 10 mls/hr 11/26/17 10:15 11/30/17 12:51 Saline 0.45% IV Not Given .Q24H [facility] Milrinone Lactate/Dextrose 20 100 mls @ 6.58 mls/hr 11/29/17 15:00 11/30/17 08:16 mg/ IV Solution IV 0.2 mcg/kg/min .[id number] [facility] 6.58 mls/hr 0.2 MCG/KG/MIN Infusion Insulin Aspart 0 unit 11/29/17 12:00 11/30/17 12:50 Novolog SQ Not Given Q6HR [facility] Protocol Magnesium Hydroxide 2,400 mg 11/26/17 17:53 Milk Of Magnesia PO BID PRN Constipation Metoprolol Tartrate 12.5 mg 11/26/17 09:00 11/30/17 08:15 Lopressor PO 12.5 mg BID [facility] Administration Miscellaneous Information 1 each 11/25/17 19:03 Magnesium Per Protocol MISCELLANE DAILY PRN Per Protocol Protocol Miscellaneous Information 1 each 11/25/17 19:03 Phosphorus Per Protocol MISCELLANE DAILY PRN Per Protocol Protocol Miscellaneous Information 1 each 11/25/17 19:03 Potassium Per Protocol MISCELLANE DAILY PRN Per Protocol Protocol Miscellaneous Information 1 each 11/29/17 12:01 Potassium Per Protocol MISCELLANE DAILY PRN Per Protocol Protocol Morphine Sulfate 6 mg 11/29/17 13:31 Morphine Oral Dana 2mg/Ml PO Q2H PRN Severe Pain Ondansetron HCl 4 mg 11/25/17 19:03 Zofran IVP Q6HR PRN Nausea And Vomiting Pantoprazole Sodium 40 mg 11/26/17 09:00 11/30/17 08:15 Protonix IVP 40 mg DAILY [facility] Administration Senna/Docusate Sodium 2 each 11/26/17 21:00 11/29/17 20:40 Senokot-S PO 2 each HS [facility] Administration Sodium Chloride 10 ml 11/25/17 21:00 11/30/17 08:15 Saline Flush IV 10 ml BID [facility] Administration 12/01/2017 Breathing improving, weaned off of BiPAP and down to 6 L high flow. Wheezing resolved. Chest x-ray reports improvement. Staff reports patient appeared to be choking on pills last night, speech therapy consulted. Receiving one unit of packed RBCs for hemoglobin of 6.7. Mediastinal chest tubes discontinued, left pleural chest tube remains. Maintained on Primacor. Telemetry atrial flutter. Review of systems: CONSTITUTIONAL: No fever, no malaise HEENT: No recent visual problems or hearing problems. Denied any sore throat. CARDIOVASCULAR: No chest pain, no palpitations, no syncope. PULMONARY: Improving shortness of breath, no cough, no hemoptysis. GASTROINTESTINAL: No diarrhea, no nausea, no vomiting, no abdominal pain. Normoactive bowel sounds. NEUROLOGICAL: No headaches, diffuse weakness, no numbness. HEMATOLOGICAL: Denies any bleeding or petechiae. GENITOURINARY: Denies any burning micturition, frequency, or urgency. ENDOCRINE: Denies any polyuria or polydipsia. PSYCHIATRIC: No anxiety, no depression Active Medications Hydrocodone Bitart/Acetaminophen ([place] 5-325) 1 each PO Q4HR PRN PRN Reason: MILD TO MODERATE Pain Last Admin: 12/01/17 22:44 Dose: 1 each Hydrocodone Bitart/Acetaminophen ([place] 5-325) 2 each PO Q4HR PRN PRN Reason: MODERATE TO SEVERE Pain Albuterol/Ipratropium (Duoneb 0.5 Mg-3 Mg/3 Ml Soln) 3 ml INHALATION RT-Q4H [facility] Last Admin: 12/02/17 15:06 Dose: 3 ml Albuterol/Ipratropium (Duoneb 0.5 Mg-3 Mg/3 Ml Soln) 3 ml INHALATION RT-Q2H PRN PRN Reason: Shortness Of Breath Or Wheezing Last Admin: 12/01/17 18:09 Dose: 3 ml Amiodarone HCl (Cordarone) 200 mg PO BID [facility] Last Admin: 12/02/17 08:10 Dose: 200 mg Aspirin (Aspirin) 81 mg PO DAILY [facility] Last Admin: 12/02/17 08:10 Dose: 81 mg Atorvastatin Calcium (Lipitor) 40 mg PO DAILY [facility] Last Admin: 12/02/17 08:10 Dose: 40 mg Benzocaine/Menthol (Cepacol Lozenge) 1 each MUCOUS MEM Q2H PRN PRN Reason: Sore Throat Bisacodyl (Dulcolax) 10 mg RECTAL DAILY PRN PRN Reason: Constipation Budesonide (Pulmicort) 1 mg INHALATION RT-BID [facility] Last Admin: 12/02/17 07:19 Dose: 1 mg Fondaparinux (Arixtra) 2.5 mg SQ DAILY [facility] Last Admin: 12/02/17 08:10 Dose: 2.5 mg Formoterol Fumarate (Perforomist) 20 mcg INHALATION RT-BID [facility] Last Admin: 12/02/17 07:36 Dose: 20 mcg Norepinephrine Bitartrate (Levophed-0.9% Nacl 16 Mg/250ml Pmx) 16 mg in 250 mls @ 0 mls/hr IV .Q0M [facility]; Titrate PRN Reason: Protocol Last Titration: 11/30/17 11:58 Dose: 0 mcg/min, 0 mls/hr Sodium Chloride (Saline 0.45%) 1,000 mls @ 10 mls/hr IV .Q24H [facility] Last Admin: 12/01/17 14:04 Dose: 10 mls/hr Milrinone Lactate/Dextrose 20 (mg/ IV Solution) 100 mls @ 6.58 mls/hr IV .[id number] [facility] PRN Reason: 0.2 MCG/KG/MIN Last Admin: 12/02/17 08:57 Dose: 0.2 mcg/kg/min, 6.58 mls/hr Insulin Aspart (Novolog) 0 unit SQ Q6HR [facility] PRN Reason: Protocol Last Admin: 12/02/17 12:53 Dose: Not Given Magnesium Hydroxide (Milk Of Magnesia) 2,400 mg PO BID PRN PRN Reason: Constipation Methylprednisolone Sodium Succinate (Solu-Medrol) 30 mg IV Q8HR [facility] Last Admin: 12/02/17 08:10 Dose: 30 mg Metoprolol Tartrate (Lopressor) 25 mg PO BID [facility] Last Admin: 12/02/17 08:59 Dose: 25 mg Miscellaneous Information (Magnesium Per Protocol) 1 each MISCELLANE DAILY PRN ; Protocol PRN Reason: Per Protocol Miscellaneous Information (Phosphorus Per Protocol) 1 each MISCELLANE DAILY PRN ; Protocol PRN Reason: Per Protocol Miscellaneous Information (Potassium Per Protocol) 1 each MISCELLANE DAILY PRN ; Protocol PRN Reason: Per Protocol Miscellaneous Information (Potassium Per Protocol) 1 each MISCELLANE DAILY PRN ; Protocol PRN Reason: Per Protocol Ondansetron HCl (Zofran) 4 mg IVP Q6HR PRN PRN Reason: Nausea And Vomiting Pantoprazole Sodium (Protonix) 40 mg IVP DAILY [facility] Last Admin: 12/02/17 08:10 Dose: 40 mg Senna/Docusate Sodium (Senokot-S) 2 each PO HS [facility] Last Admin: 12/01/17 21:55 Dose: 2 each Sodium Chloride (Saline Flush) 10 ml IV BID [facility] Last Admin: 12/02/17 12:51 Dose: 10 ml 12/02/17 Much more alert today. Oxygen weaned further down to 5 L nasal cannula, maintaining O2 sats in the high 90s. Pleural chest tube discontinued. Chest x- ray reporting probable right lower lobe atelectasis/effusion. Underwent modified barium swallow, with recommendations of regular diet, thin liquids, chin tuck, no straw, small bites/sepsis/sips; no impairment with exception of mild transient penetration with thin liquids which patient independently cleared. Yesterday receive 1 unit of packed RBCs with current hemoglobin 8. Weaning of Primacor in progress. 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 Review of systems: CONSTITUTIONAL: No fever, no malaise, no fatigue. HEENT: No recent visual problems or hearing problems. Denied any sore throat. CARDIOVASCULAR: No chest pain, no palpitations, no syncope. PULMONARY: Minimal shortness of breath, no cough, no hemoptysis. GASTROINTESTINAL: No diarrhea, no nausea, no vomiting, no abdominal pain. Normoactive bowel sounds. NEUROLOGICAL: No headaches, no weakness, no numbness. HEMATOLOGICAL: Denies any bleeding or petechiae. GENITOURINARY: Denies any burning micturition, frequency, or urgency. MUSCULOSKELETAL/RHEUMATOLOGICAL: Denies any joint pain, swelling, or any muscle pain. ENDOCRINE: Denies any polyuria or polydipsia. PSYCHIATRIC: No anxiety, no depression The rest of the 14 point review of systems is negative Active Medications Generic Name Dose Route Start Last Admin Trade Name Freq PRN Reason Stop Dose Admin Hydrocodone Bitart/Acetaminophen 1 each 12/01/17 12:20 12/01/17 22:44 [place] 5-325 PO 1 each Q4HR PRN Administration MILD TO MODERATE Pain Hydrocodone Bitart/Acetaminophen 2 each 12/01/17 12:20 [place] 5-325 PO Q4HR PRN MODERATE TO SEVERE Pain Albuterol/Ipratropium 3 ml 11/25/17 20:00 12/02/17 15:06 Duoneb 0.5 Mg-3 Mg/3 Ml Soln INHALATION 3 ml RT-Q4H [facility] Administration Albuterol/Ipratropium 3 ml 11/26/17 17:53 12/01/17 18:09 Duoneb 0.5 Mg-3 Mg/3 Ml Soln INHALATION 3 ml RT-Q2H PRN Administration Shortness Of Breath Or Wheezing Amiodarone HCl 200 mg 11/29/17 21:00 12/02/17 08:10 Cordarone PO 200 mg BID [facility] Administration Aspirin 81 mg 11/26/17 10:15 12/02/17 08:10 Aspirin PO 81 mg DAILY [facility] Administration Atorvastatin Calcium 40 mg 11/26/17 09:00 12/02/17 08:10 Lipitor PO 40 mg DAILY [facility] Administration Benzocaine/Menthol 1 each 11/25/17 19:03 Cepacol Lozenge MUCOUS MEM Q2H PRN Sore Throat Bisacodyl 10 mg 11/26/17 17:52 Dulcolax RECTAL DAILY PRN Constipation Budesonide 1 mg 12/01/17 20:00 12/02/17 07:19 Pulmicort INHALATION 1 mg RT-BID [facility] Administration Fondaparinux 2.5 mg 11/30/17 11:30 12/02/17 08:10 Arixtra SQ 2.5 mg DAILY [facility] Administration Formoterol Fumarate 20 mcg 12/01/17 20:00 12/02/17 07:36 Perforomist INHALATION 20 mcg RT-BID [facility] Administration Norepinephrine Bitartrate 16 mg in 250 mls @ 0 mls/hr 11/26/17 04:15 11:58 Levophed-0.9% Nacl 16 Mg/250ml Pmx IV 0 mcg/min .Q0M [facility] 0 mls/hr Protocol Titration Titrate Sodium Chloride 1,000 mls @ 10 mls/hr 11/26/17 10:15 12/02/17 15:41 Saline 0.45% IV Not Given .Q24H [facility] Milrinone Lactate/Dextrose 20 100 mls @ 6.58 mls/hr 11/29/17 15:00 12/02/17 08:57 mg/ IV Solution IV 0.2 mcg/kg/min .[id number] [facility] 6.58 mls/hr 0.2 MCG/KG/MIN Administration Insulin Aspart 0 unit 11/29/17 12:00 12/02/17 12:53 Novolog SQ Not Given Q6HR [facility] Protocol Magnesium Hydroxide 2,400 mg 11/26/17 17:53 Milk Of Magnesia PO BID PRN Constipation Methylprednisolone Sodium Succinate 30 mg 12/01/17 16:00 12/02/17 08:10 Solu-Medrol IV 30 mg Q8HR [facility] Administration Metoprolol Tartrate 25 mg 12/02/17 09:00 12/02/17 08:59 Lopressor PO 25 mg BID [facility] Administration Miscellaneous Information 1 each 11/25/17 19:03 Magnesium Per Protocol MISCELLANE DAILY PRN Per Protocol Protocol Miscellaneous Information 1 each 11/25/17 19:03 Phosphorus Per Protocol MISCELLANE DAILY PRN Per Protocol Protocol Miscellaneous Information 1 each 11/25/17 19:03 Potassium Per Protocol MISCELLANE DAILY PRN Per Protocol Protocol Miscellaneous Information 1 each 11/29/17 12:01 Potassium Per Protocol MISCELLANE DAILY PRN Per Protocol Protocol Ondansetron HCl 4 mg 11/25/17 19:03 Zofran IVP Q6HR PRN Nausea And Vomiting Pantoprazole Sodium 40 mg 11/26/17 09:00 12/02/17 08:10 Protonix IVP 40 mg DAILY [facility] Administration Senna/Docusate Sodium 2 each 11/26/17 21:00 12/01/17 21:55 Senokot-S PO 2 each HS [facility] Administration Sodium Chloride 10 ml 11/25/17 21:00 12/02/17 12:51 Saline Flush IV 10 ml BID [facility] Administration 12/03/17 maintained on nebulized bronchodilators, steroids,patient tachypneic, requiring BiPap throughout today off and on. Chest x-ray suggestive of fluid overload. Received additional Lasix. Maintained on oral amiodarone, remains in a-flutter. Overdrive atrial pacing attempted unsuccessfully. Digoxin 2 ordered. Pacer wires discontinued today. Stool at bedside with PT OT, remains extremely weak. Primacor weaned off yesterday. 2017 currently in atrial fibrillation with heart rates up into the 150s, scheduled for cardioversion tomorrow. INR 2.2. Patient currently wearing BiPAP ,has required on and off all day. Chest ultrasound reporting bilateral pleural effusions, larger on the right. Thoracentesis on hold, awaiting cardioversion.Chest x-ray reporting prominent interstitium and central vascularity, increased bibasilar density. Attempting diuresing with Lasix and Zaroxolyn. Review systems unable to obtain as patient currently on BiPAP. Active Medications Hydrocodone Bitart/Acetaminophen ([place] 5-325) 1 each PO Q4HR PRN PRN Reason: MILD TO MODERATE Pain Last Admin: 12/07/17 10:48 Dose: 1 each Hydrocodone Bitart/Acetaminophen ([place] 5-325) 2 each PO Q4HR PRN PRN Reason: MODERATE TO SEVERE Pain Last Admin: 12/07/17 16:39 Dose: 2 each Albuterol/Ipratropium (Duoneb 0.5 Mg-3 Mg/3 Ml Soln) 3 ml INHALATION RT-Q2H PRN PRN Reason: Shortness Of Breath Or Wheezing Last Admin: 12/01/17 18:09 Dose: 3 ml Albuterol/Ipratropium (Duoneb 0.5 Mg-3 Mg/3 Ml Soln) 3 ml INHALATION RT-QID [facility] Last Admin: 12/07/17 16:43 Dose: 3 ml Amiodarone HCl (Cordarone) 200 mg PO BID [facility] Aspirin (Aspirin) 81 mg PO DAILY [facility] Last Admin: 12/07/17 08:53 Dose: 81 mg Atorvastatin Calcium (Lipitor) 40 mg PO DAILY [facility] Last Admin: 12/07/17 08:53 Dose: 40 mg Benzocaine/Menthol (Cepacol Lozenge) 1 each MUCOUS MEM Q2H PRN PRN Reason: Sore Throat Bisacodyl (Dulcolax) 10 mg RECTAL DAILY PRN PRN Reason: Constipation Budesonide (Pulmicort) 1 mg INHALATION RT-BID [facility] Last Admin: 12/07/17 08:36 Dose: 1 mg Escitalopram Oxalate (Lexapro) 10 mg PO HS [facility] Furosemide (Lasix) 40 mg IV Q12HR [facility] Last Admin: 12/07/17 08:33 Dose: 40 mg Piperacillin/Tazobactam/ (Dextrose 3.375 gm/ IV Solution) 50 mls @ 12.5 mls/hr IVPB Q8HR [facility] Last Admin: 12/07/17 16:39 Dose: 12.5 mls/hr Sodium Chloride (Saline 0.9%) 1,000 mls @ 20 mls/hr IV .Q24H [facility] Last Admin: 12/07/17 13:00 Dose: 20 mls/hr Lactated Ringer's (Lactated Ringers) 1,000 mls @ 20 mls/hr IV .Q24H [facility] Last Admin: 12/06/17 20:45 Dose: 20 mls/hr Insulin Aspart (Novolog) 0 unit SQ ACHS [facility] PRN Reason: Protocol Last Admin: 12/07/17 13:01 Dose: 2 unit Magnesium Hydroxide (Milk Of Magnesia) 2,400 mg PO BID PRN PRN Reason: Constipation Methylprednisolone Sodium Succinate (Solu-Medrol) 30 mg IV Q8HR [facility] Last Admin: 12/07/17 16:39 Dose: 30 mg Metolazone (Zaroxolyn) 5 mg PO DAILY [facility] Last Admin: 12/07/17 08:53 Dose: 5 mg Metoprolol Tartrate (Lopressor) 50 mg PO BID [facility] Last Admin: 12/07/17 08:53 Dose: 50 mg Miscellaneous Information (Magnesium Per Protocol) 1 each MISCELLANE DAILY PRN ; Protocol PRN Reason: Per Protocol Miscellaneous Information (Phosphorus Per Protocol) 1 each MISCELLANE DAILY PRN ; Protocol PRN Reason: Per Protocol Miscellaneous Information (Potassium Per Protocol) 1 each MISCELLANE DAILY PRN ; Protocol PRN Reason: Per Protocol Ondansetron HCl (Zofran) 4 mg IVP Q6HR PRN PRN Reason: Nausea And Vomiting Pantoprazole Sodium (Protonix) 40 mg PO AC-BRKFST [facility] Last Admin: 12/07/17 08:53 Dose: 40 mg Senna/Docusate Sodium (Senokot-S) 2 each PO HS [facility] Last Admin: 12/06/17 20:29 Dose: 2 each Sodium Chloride (Saline Flush) 10 ml IV BID [facility] Last Admin: 12/07/17 10:48 Dose: 10 ml 12/07/2017 Underwent successful cardioversion this morning,360J X1, remains in sinus rhythm. Currently wearing BiPAP. Nonproductive cough. Diuresing well on Lasix and Zaroxolyn with 24-hour I&O reflecting a negative fluid balance. Chest x-ray reporting stable bilateral areas of infiltrate and pleural effusions , possible CHF, possible pneumonia. INR 3.8, afebrile, WBC 17. Maintained on Zosyn. Sternal wound drainage, cultures sent. 12/08/2017 Cardioverted yesterday, remains in sinus rhythm .continues requiring BiPAP for majority of morning. Echo reporting-limited study for assessment of pericardial effusion, small generalized pericardial effusion, low normal LV function, EF 50-55%. Chest CT reporting sternal dehiscence, moderate to large pericardial effusion, possible mass effect onto the left ventricle, no significant right atrial dilatation to clearly indicate tamponade, moderate left pleural effusion with adjacent complete left lower lobar and inferior lingular collapse, small right pleural effusion, right basilar subsegmental atelectasis. Chest x-ray noted. Blood sugars controlled. INR 4.8, received vitamin K this morning. Diuresing well on Lasix IV push, Zaroxolyn. 24-hour I& O reflecting a negative fluid balance, decreased weight. Midsternal incision open, draining large amount of serosanguineous drainage. Currently maintained on Zosyn. Wound cultures pending. Afebrile. Review systems unable to obtain as patient currently on BiPAP. Active Medications Generic Name Dose Route Start Last Admin Trade Name Freq PRN Reason Stop Dose Admin Hydrocodone Bitart/Acetaminophen 1 each 12/01/17 12:20 12/08/17 06:26 [place] 5-325 PO 1 each Q4HR PRN Administration MILD TO MODERATE Pain Hydrocodone Bitart/Acetaminophen 2 each 12/01/17 12:20 12/08/17 18:41 [place] 5-325 PO 2 each Q4HR PRN Administration MODERATE TO SEVERE Pain Acetazolamide Sodium 250 mg 12/08/17 09:15 12/08/17 11:16 Diamox IV 12/08/17 21:01 250 mg Q12HR [facility] Administration Albuterol/Ipratropium 3 ml 11/26/17 17:53 12/08/17 05:16 Duoneb 0.5 Mg-3 Mg/3 Ml Soln INHALATION 3 ml RT-Q2H PRN Administration Shortness Of Breath Or Wheezing Albuterol/Ipratropium 3 ml 12/03/17 08:00 12/08/17 15:38 Duoneb 0.5 Mg-3 Mg/3 Ml Soln INHALATION 3 ml RT-QID [facility] Administration Amiodarone HCl 200 mg 12/08/17 09:00 12/08/17 08:24 Cordarone PO 200 mg BID [facility] Administration Aspirin 81 mg 11/26/17 10:15 12/08/17 08:24 Aspirin PO 81 mg DAILY [facility] Administration Atorvastatin Calcium 40 mg 11/26/17 09:00 12/08/17 08:25 Lipitor PO 40 mg DAILY [facility] Administration Benzocaine/Menthol 1 each 11/25/17 19:03 Cepacol Lozenge MUCOUS MEM Q2H PRN Sore Throat Bisacodyl 10 mg 11/26/17 17:52 Dulcolax RECTAL DAILY PRN Constipation Budesonide 1 mg 12/01/17 20:00 12/08/17 09:26 Pulmicort INHALATION 1 mg RT-BID [facility] Administration Escitalopram Oxalate 10 mg 12/07/17 21:00 12/07/17 20:10 Lexapro PO 10 mg HS [facility] Administration Piperacillin/Tazobactam/ 50 mls @ 12.5 mls/hr 12/04/17 16:00 12/08/17 16:11 Dextrose 3.375 gm/ IV Solution IVPB 12.5 mls/hr Q8HR [facility] Administration Sodium Chloride 1,000 mls @ 20 mls/hr 12/06/17 10:45 12/08/17 13:47 Saline 0.9% IV Not Given .Q24H [facility] Insulin Aspart 0 unit 12/02/17 21:00 12/08/17 17:46 Novolog SQ 1 unit ACHS [facility] Administration Protocol Magnesium Hydroxide 2,400 mg 11/26/17 17:53 Milk Of Magnesia PO BID PRN Constipation Metoprolol Tartrate 50 mg 12/06/17 21:00 12/08/17 08:24 Lopressor PO 50 mg BID [facility] Administration Miscellaneous Information 1 each 11/25/17 19:03 Magnesium Per Protocol MISCELLANE DAILY PRN Per Protocol Protocol Miscellaneous Information 1 each 11/25/17 19:03 Phosphorus Per Protocol MISCELLANE DAILY PRN Per Protocol Protocol Miscellaneous Information 1 each 11/25/17 19:03 Potassium Per Protocol MISCELLANE DAILY PRN Per Protocol Protocol Ondansetron HCl 4 mg 11/25/17 19:03 Zofran IVP Q6HR PRN Nausea And Vomiting Pantoprazole Sodium 40 mg 12/05/17 07:30 12/08/17 08:25 Protonix PO 40 mg AC-[id number] [facility] Administration Senna/Docusate Sodium 2 each 11/26/17 21:00 12/07/17 20:16 Senokot-S PO 2 each HS [facility] Administration Sodium Chloride 10 ml 11/25/17 21:00 12/08/17 11:16 Saline Flush IV 10 ml BID [facility] Administration 12/09/17 Remains in sinus rhythm. mostly BiPAP dependent. Incentive spirometer up to 700 -750. Chest x-ray reporting improving moderate pleural effusion, cardiomegaly. Sternal wound culture positive for gram-negative bacilli. Maintained on Zosyn. Diet intake fair. Blood sugars controlled. Review systems unable to be performed as patient on BiPAP Active Medications Hydrocodone Bitart/Acetaminophen ([place] 5-325) 1 each PO Q4HR PRN PRN Reason: MILD TO MODERATE Pain Last Admin: 12/09/17 10:03 Dose: 1 each Hydrocodone Bitart/Acetaminophen ([place] 5-325) 2 each PO Q4HR PRN PRN Reason: MODERATE TO SEVERE Pain Last Admin: 12/09/17 14:51 Dose: 2 each Albuterol/Ipratropium (Duoneb 0.5 Mg-3 Mg/3 Ml Soln) 3 ml INHALATION RT-Q2H PRN PRN Reason: Shortness Of Breath Or Wheezing Last Admin: 12/08/17 05:16 Dose: 3 ml Albuterol/Ipratropium (Duoneb 0.5 Mg-3 Mg/3 Ml Soln) 3 ml INHALATION RT-QID [facility] Last Admin: 12/09/17 15:42 Dose: 3 ml Amiodarone HCl (Cordarone) 200 mg PO BID [facility] Last Admin: 12/09/17 08:12 Dose: 200 mg Aspirin (Aspirin) 81 mg PO DAILY [facility] Last Admin: 12/09/17 08:13 Dose: 81 mg Atorvastatin Calcium (Lipitor) 40 mg PO DAILY [facility] Last Admin: 12/09/17 08:13 Dose: 40 mg Benzocaine/Menthol (Cepacol Lozenge) 1 each MUCOUS MEM Q2H PRN PRN Reason: Sore Throat Bisacodyl (Dulcolax) 10 mg RECTAL DAILY PRN PRN Reason: Constipation Budesonide (Pulmicort) 1 mg INHALATION RT-BID [facility] Last Admin: 12/09/17 07:45 Dose: 1 mg Escitalopram Oxalate (Lexapro) 10 mg PO HS [facility] Last Admin: 12/08/17 20:33 Dose: 10 mg Piperacillin/Tazobactam/ (Dextrose 3.375 gm/ IV Solution) 50 mls @ 12.5 mls/hr IVPB Q8HR [facility] Last Admin: 12/09/17 08:16 Dose: 12.5 mls/hr Sodium Chloride (Saline 0.9%) 1,000 mls @ 20 mls/hr IV .Q24H [facility] Last Admin: 12/09/17 08:17 Dose: 20 mls/hr Insulin Aspart (Novolog) 0 unit SQ ACHS [facility] PRN Reason: Protocol Last Admin: 12/09/17 12:23 Dose: Not Given Magnesium Hydroxide (Milk Of Magnesia) 2,400 mg PO BID PRN PRN Reason: Constipation Metoprolol Tartrate (Lopressor) 50 mg PO BID [facility] Last Admin: 12/09/17 08:13 Dose: 50 mg Miscellaneous Information (Magnesium Per Protocol) 1 each MISCELLANE DAILY PRN ; Protocol PRN Reason: Per Protocol Miscellaneous Information (Phosphorus Per Protocol) 1 each MISCELLANE DAILY PRN ; Protocol PRN Reason: Per Protocol Miscellaneous Information (Potassium Per Protocol) 1 each MISCELLANE DAILY PRN ; Protocol PRN Reason: Per Protocol Ondansetron HCl (Zofran) 4 mg IVP Q6HR PRN PRN Reason: Nausea And Vomiting Pantoprazole Sodium (Protonix) 40 mg PO AC-BRKFST [facility] Last Admin: 12/09/17 08:11 Dose: 40 mg Senna/Docusate Sodium (Senokot-S) 2 each PO HS [facility] Last Admin: 12/08/17 20:37 Dose: 2 each Sodium Chloride (Saline Flush) 10 ml IV BID [facility] Last Admin: 12/09/17 08:13 Dose: 10 ml 12/13/17 maintained on Merrem and vancomycin. BiPAP dependent. Worsening chest x-ray, chest CT reporting near complete collapse of left lung, enlarging moderate to large pericardial effusion. Echo pending. Multiple episodes of diarrhea. Atrial flutter with RVR, Review systems unable to be performed as patient on BiPAP Active Medications Generic Name Dose Route Start Last Admin Trade Name Freq PRN Reason Stop Dose Admin Hydrocodone Bitart/Acetaminophen 1 each 12/01/17 12:20 12/13/17 08:08 [place] 5-325 PO 1 each Q4HR PRN Administration MILD TO MODERATE Pain Hydrocodone Bitart/Acetaminophen 2 each 12/01/17 12:20 12/13/17 15:08 [place] 5-325 PO 2 each Q4HR PRN Administration MODERATE TO SEVERE Pain Albuterol/Ipratropium 3 ml 11/26/17 17:53 12/08/17 05:16 Duoneb 0.5 Mg-3 Mg/3 Ml Soln INHALATION 3 ml RT-Q2H PRN Administration Shortness Of Breath Or Wheezing Albuterol/Ipratropium 3 ml 12/03/17 08:00 12/13/17 16:02 Duoneb 0.5 Mg-3 Mg/3 Ml Soln INHALATION Not Given RT-QID [facility] Amiodarone HCl 200 mg 12/11/17 20:00 12/13/17 09:12 Cordarone PO 200 mg BID@0800,2000 [facility] Administration Aspirin 81 mg 11/26/17 10:15 12/13/17 09:13 Aspirin PO 81 mg DAILY [facility] Administration Atorvastatin Calcium 40 mg 11/26/17 09:00 12/13/17 09:13 Lipitor PO 40 mg DAILY [facility] Administration Benzocaine/Menthol 1 each 11/25/17 19:03 Cepacol Lozenge MUCOUS MEM Q2H PRN Sore Throat Bisacodyl 10 mg 11/26/17 17:52 12/12/17 17:45 Dulcolax RECTAL 10 mg DAILY PRN Administration Constipation Budesonide 1 mg 12/01/17 20:00 12/13/17 07:46 Pulmicort INHALATION 1 mg RT-BID [facility] Administration Escitalopram Oxalate 10 mg 12/07/17 21:00 12/12/17 20:16 Lexapro PO 10 mg HS [facility] Administration Heparin Sodium (Porcine) 5,000 unit 12/10/17 16:00 12/13/17 09:14 Heparin SQ 5,000 unit Q8HR [facility] Administration Sodium Chloride 1,000 mls @ 20 mls/hr 12/06/17 10:45 12/13/17 09:49 Saline 0.9% IV 20 mls/hr .Q24H [facility] Administration Meropenem 1 gm/ Sodium 100 mls @ 100 mls/hr 12/09/17 22:00 12/13/17 09:46 Chloride IVPB 100 mls/hr Q8HR [facility] Administration Vancomycin HCl 1,750 mg/ 250 mls @ 125 mls/hr 12/13/17 14:00 12/13/17 14:15 Sodium Chloride IVPB 125 mls/hr Q12HR@0000,1200 [facility] Administration Insulin Aspart 0 unit 12/02/17 21:00 12/13/17 12:34 Novolog SQ Not Given ACHS [facility] Protocol Lactobacillus Acidoph/Bulgaricus 1 each 12/13/17 16:00 Lactinex PO TID [facility] Magnesium Hydroxide 2,400 mg 11/26/17 17:53 Milk Of Magnesia PO BID PRN Constipation Metoprolol Tartrate 50 mg 12/11/17 22:00 12/13/17 09:13 Lopressor PO 50 mg BID@1000,2200 [facility] Administration Miscellaneous Information 1 each 11/25/17 19:03 Magnesium Per Protocol MISCELLANE DAILY PRN Per Protocol Protocol Miscellaneous Information 1 each 11/25/17 19:03 Phosphorus Per Protocol MISCELLANE DAILY PRN Per Protocol Protocol Miscellaneous Information 1 each 11/25/17 19:03 Potassium Per Protocol MISCELLANE DAILY PRN Per Protocol Protocol Ondansetron HCl 4 mg 11/25/17 19:03 Zofran IVP Q6HR PRN Nausea And Vomiting Pantoprazole Sodium 40 mg 12/05/17 07:30 12/13/17 09:13 Protonix PO 40 mg AC-BRKFST [facility] Administration Senna/Docusate Sodium 2 each 11/26/17 21:00 12/12/17 20:16 Senokot-S PO 2 each HS [facility] Administration Sodium Chloride 10 ml 11/25/17 21:00 12/13/17 09:49 Saline Flush IV 10 ml BID [facility] Administration 12/14/17 maintained on Merrem and vancomycin per infectious disease .remains BiPAP dependent. Chest x-ray reporting persistent significant left lung collapse with minimal improvement. Scheduled for bronchoscopy this afternoon. INR 2.1, receiving FFP. No diarrhea today. Telemetry atrial fibrillation/ flutter, heart rate 110s to 120s. 12/15/2017 developed worsened respiratory distress despite BiPAP, diuretics, antiarrhythmics, intubated last night. Received 2 more units of FFP this morning, underwent bronchoscopy this morning; mucous plug discovered in the left lower lobe. Pleural Cultures pending. Maintained on FiO2 45%/+5 of PEEP. Continues on IV antibiotics. Currently on 2-1/2 mics of Levophed and diprovan drips. Atrial tachycardia, heart rate in the 130s. Amiodarone discontinued as per cardiology. Developed increased bleeding from wound VAC with turning during bath-Anticoagulation placed on hold. Afebrile. 12/16/17 remains vent dependent, FiO2 40%/+5 of PEEP. Sedated on Diprovan. Requiring low-dose of Levophed. Marginal urine output, received albumin last night. Tachycardia resolved, sinus rhythm per telemetry. Wound VAC dressing changed today, serosanguineous drainage. Bronchoscopy yesterday, cultures pending. Blood sugars controlled. 12/17/2017 today weaning trials of pressure support in increments of 3 hours , resting at night, FiO2 40%/+5 of PEEP. Chest x-ray reporting improvement. Currently on Levophed. Tolerating tube feeds at goal with minimal to no residual. Maintained on IV antibiotics as per infectious disease. Telemetry sinus rhythm. 12/20/17 remains vent dependent FiO2 40%/PEEP of 5. Yesterday vent weaning during the day hours, tolerated well. Wound VAC changed yesterday. Scheduled for sternal flap repair tomorrow. Maintained on IV antibiotics. T-max 99.4. Last night returned into rapid atrial flutter, Currently sinus rhythm. 12/21/2017 remains vent dependent. Telemetry sinus rhythm. Tube feeds on hold. Scheduled for sternal flap repair today. 12/22/2017 underwent flap repair/grafting yesterday with plastic surgeon. Pain controlled. Extubated this morning, maintained on BiPAP. Telemetry sinus rhythm. Albumin remains at 2.2, receiving albumin. Objective - Vital Signs Vital signs: Vital Signs Temp 99 F 12/22/17 12:00 Pulse 82 12/22/17 16:04 Resp 18 12/22/17 15:00 BP 116/54 12/19/17 10:00 Pulse Ox 100 12/22/17 15:00 Intake & Output 12/21/17 12/22/17 12/22/17 18:59 06:59 18:59 Intake Total 1391 769 047 Output Total 744 1588 4778 Balance 062 -7861 -1533 Weight 114.7 kg Intake: IV 1141 279 207 Pressure Bag 21 39 27 Sodium Chloride 0.9% 1, 120 240 180 000 ml @ 20 mls/hr IV . Q24H [facility] Rx#:[id number] Intake, IV Titration 100 Amount Propofol 1,000 mg In 100 Empty Bag 1 bag @ Titrate IV .Q0M [facility] Rx#: [id number] Tube Feeding 90 430 180 Other 60 60 60 Output: Chest Tube Drainage 20 0 Pleural Catheter Left 20 0 Drainage 290 5154 460 Medial Abdomen 20 3618 460 Medial Chest Incision - 0 Woundvac Right Abdomen 270 1536 Urine 859 643 4314 Estimated Blood Loss 100 Other: Voiding Method Indwelling Catheter Indwelling Catheter Indwelling Catheter # Voids 1 ABP, PAP, CO, CI - Last Documented Arterial Blood Pressure 114/46 Pulmonary Artery Pressure 38/33 Cardiac Output 5.8 Cardiac Index 2.9 - Exam PHYSICAL EXAM: VITAL SIGNS: As above GENERAL: Sitting up in bed, on BiPAP HEENT: Conjunctivae normal. eyes normal. NECK: No JVD. No thyroid enlargement. CARDIOVASCULAR: S1, S2 muffled , positive systolic murmur. RESPIRATION: Breath sounds diminished in the bases,coarse. Occasional scattered fine crackles. No wheezes. Sternal wound dressing present. ABDOMEN: Soft . No guarding. no masses palpable.Bowel sounds heard. Extremities: Positive mild edema PSYCHIATRY:/NERVOUS SYSTEM: Unable to assess as patient on BiPAP Skin: Midsternal dressing clean dry and intact, previously with right medial buttock & right buttock skin tears, type II - III, Right lower arm Skin tear, type II, Lower back shearing injury with sloughing-unable to examine backside at this time. Microbiology 12/15/17 10:40 Bronchial Washings - Left Gram Stain - Final 12/15/17 10:40 Bronchial Washings - Left Bronchial Washings Culture - Final Rachana albicans 12/14/17 21:30 Sputum Gram Stain - Final 12/14/17 21:30 Sputum Sputum Culture - Final Rachana albicans 12/15/17 10:40 Bronchial Washings - Left Acid Fast Bacilli Smear - Final 12/15/17 10:40 Bronchial Washings - Left Acid Fast Bacilli Culture - Preliminary 12/15/17 10:40 Bronchial Washings - Left Fungal Culture - Preliminary 12/10/17 10:50 Chest Anaerobic Culture - Final 12/10/17 10:40 Chest Anaerobic Culture - Final 12/10/17 10:45 Chest Anaerobic Culture - Final 12/13/17 05:27 Urine,Catheterized Urine Culture - Final 12/10/17 10:40 Chest Gram Stain - Final 12/10/17 10:40 Chest Wound Culture - Final Serratia marcescens 12/10/17 10:45 Chest Gram Stain - Final 12/10/17 10:45 Chest Tissue Culture - Final Serratia marcescens 12/10/17 10:50 Chest Gram Stain - Final 12/10/17 10:50 Chest Tissue Culture - Final Serratia marcescens 12/10/17 10:50 Chest Acid Fast Bacilli Smear - Final 12/10/17 10:50 Chest Acid Fast Bacilli Culture - Preliminary 12/10/17 10:45 Chest Acid Fast Bacilli Smear - Final 12/10/17 10:45 Chest Acid Fast Bacilli Culture - Preliminary 12/10/17 10:50 Chest Fungal Culture - Preliminary 12/10/17 10:40 Chest Fungal Culture - Preliminary 12/10/17 10:45 Chest Fungal Culture - Preliminary 12/07/17 15:40 Chest Gram Stain - Final 12/07/17 15:40 Chest Wound Culture - Final Serratia marcescens 12/04/17 10:00 Urine,Voided Urine Culture - Final Escherichia coli Serratia marcescens 11/26/17 04:00 Sputum Gram Stain - Final 11/26/17 04:00 Sputum Sputum Culture - Final - Labs CBC & Chem 7: 12/22/17 04:15 12/22/17 04:15 Labs: Abnormal Lab Results - Last 24 Hours (Table) 12/22/17 12/22/17 12/22/17 Range/Units 04:15 04:15 04:49 WBC 13.5 H (3.8-10.6) k/uL RBC 2.75 L (3.80-5.40) m/uL Hgb 7.3 L (11.4-16.0) gm/dL Hct 23.8 L (34.0-46.0) % MCHC 30.8 L (31.0-37.0) g/dL RDW 19.6 H (11.5-15.5) % Neutrophils # 12.2 H (1.3-7.7) k/uL Lymphocytes # 0.5 L (1.0-4.8) k/uL ABG pH 7.49 H (7.35-7.45) ABG HCO3 29 H (21-25) mmol/L ABG Total CO2 31 H (19-24) mmol/L ABG O2 Saturation 98.4 H (94-97) % Carbon Dioxide 32 H (22-30) mmol/L BUN 34 H (7-17) mg/dL Creatinine 0.50 L (0.52-1.04) mg/dL Calcium 8.1 L (8.4-10.2) mg/dL AST 63 H (14-36) U/L Total Protein 5.0 L (6.3-8.2) g/dL Albumin 2.2 L (3.5-5.0) g/dL Microbiology - Last 24 Hours (Table) 12/10/17 10:50 Acid Fast Bacilli Smear - Final Chest Acid Fast Bacilli Culture - Preliminary 12/10/17 10:45 Acid Fast Bacilli Smear - Final Chest Acid Fast Bacilli Culture - Preliminary Assessment and Plan Assessment: 1. Status post CABG with mitral valve replacement 2. Acute blood loss anemia with massive blood transfusions postoperatively, in a patient with history of GI bleed 3. Hypertension 4. Left subclavian stenosis 5. Proximal atrial fibrillation/flutter status post cardioversion with recurrence of atrial fibrillation 6. Acute Hypoxic respiratory failure, Re intubated. 7. Obesity, BMI 41.6 8. S/P PICC line placement 9. 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 Acute UTI Serratia marcescens, E. coli 11. Bilateral pleural effusions, improved with diuretics. Possible aspiration pneumonia, possible fluid overload. 12. Sternal wound debridement, culture growing Serratia marcescens, status post wound VAC. Status post sternal flap grafting. 13. Pressure ulceration of back and buttocks, stage III 14. Diarrhea, ruling out C. difficile colitis. 15. Status post bronchoscopy with left lower lobe mucous plug discovered, cultures pending Plan: Continue on current medication regime , amiodarone, metoprolol , monitoring and symptomatic treatment. Maintain IV antibiotics, nebulized bronchodilators, steroids. Prognosis guarded given multiple complex medical issues. The impression and plan of care has been dictated as directed. : I performed a history and examination of this patient, discussed the same with the dictator. I agree with the dictator's note ,documented as a scribe. Any additional findings or plans will be noted.
[2017-12-22] MEDS: METOPROLOL TARTRATE 5 MG/5 ML VIAL IVP SCH (18:51)
[2017-12-22 18:52] LABS: Glucose,Whole Blood 93 mg/dL (75-99)
[2017-12-22] MEDS: SENNOSIDES-DOCUSATE SODIUM 1 EACH TAB PO SCH (21:00)
[2017-12-22] MEDS: ESCITALOPRAM 10 MG TAB PO SCH (21:00)
[2017-12-22] MEDS: MORPHINE SULFATE/PF 10MG/10ML VL IVP PRN (21:01)
[2017-12-22 23:58] LABS: Glucose,Whole Blood 81 mg/dL (75-99)
[2017-12-23] MEDS: MEROPENEM 1 GM in SODIUM CHLORIDE 0.9% 100 ML IVPB SCH ×3 (00:30→15:48)
[2017-12-23] MEDS: METOPROLOL TARTRATE 5 MG/5 ML VIAL IVP SCH ×5 (00:30→23:56)
[2017-12-23] MEDS: INSULIN ASPART 100 UNIT/ML 1 ML 10 ML VIAL SQ SCH ×4 (00:30→19:40)
[2017-12-23] MEDS: HEPARIN SODIUM,PORCINE 5,000 UNIT/ML 1 ML VIAL SQ SCH ×3 (00:31→15:48)
[2017-12-23] MEDS: MORPHINE SULFATE/PF 10MG/10ML VL IVP PRN ×3 (03:47→23:05)
[2017-12-23] MEDS: ACETAMINOPHEN IV (For NPO) 1,000 MG in EMPTY BAG 1 BAG IVPB SCH ×2 (03:48→15:42)
[2017-12-23 05:31] LABS: Anisocytosis Slight; Basophils % (A) 0 %; Eosinophils # (A) 0.2 k/uL (0-0.7); Eosinophils % (A) 1 %; HCT 26.5 % (34.0-46.0); HGB 7.7 gm/dL (11.4-16.0); Hypochromasia Marked; Lymphocytes # (A) 0.6 k/uL (1.0-4.8); Lymphocytes % (A) 4 %; MCH 26.1 pg (25.0-35.0); MCHC 29.2 g/dL (31.0-37.0); MCV 89.3 fL (80.0-100.0); Mean Platelet Volume 8.3; Monocytes # (A) 0.7 k/uL (0-1.0); Monocytes % (A) 4 %; Neutrophils # (A) 15.4 k/uL (1.3-7.7); Neutrophils % (A) 90 %; Platelet Count 241 k/uL (150-450); Poikilocytosis Slight; RBC 2.96 m/uL (3.80-5.40); RDW 19.8 % (11.5-15.5)
[2017-12-23 05:54] LABS: ALT 44 U/L (9-52); AST 78 U/L (14-36); Albumin 2.6 g/dL (3.5-5.0); Alkaline Phosphatase 121 U/L (38-126); Anion Gap 9 mmol/L; Blood Urea Nitrogen 33 mg/dL (7-17); Calcium 8.8 mg/dL (8.4-10.2); Carbon Dioxide 33 mmol/L (22-30); Chloride 103 mmol/L (98-107); Glucose 78 mg/dL (74-99); Magnesium 2.3 mg/dL (1.6-2.3); Phosphorus 3.6 mg/dL (2.5-4.5); Potassium 4.1 mmol/L (3.5-5.1); Sodium 145 mmol/L (137-145); Total Bilirubin 0.7 mg/dL (0.2-1.3); Total Protein 5.9 g/dL (6.3-8.2)
[2017-12-23] MEDS: BUDESONIDE 1 MG/2 ML NEBU INHALATION SCH ×2 (07:14→19:24)
[2017-12-23] MEDS: IPRATROPIUM-ALBUTEROL 3 ML NEB INHALATION SCH ×5 (07:14→23:04)
[2017-12-23] MEDS: PANTOPRAZOLE 40 MG TABLET PO SCH (07:48)
[2017-12-23] MEDS: CHLORHEXIDINE GLUCONATE 15 ML CUP MUCOUS MEM SCH ×2 (07:49→21:33)
[2017-12-23] MEDS: LACTOBACILLUS ACIDOPH & BULGAR 1 EACH PACKET PO SCH ×3 (07:49→21:33)
[2017-12-23] MEDS: FLUCONAZOLE IN NACL,ISO-OSM 200 MG in SALINE 1 100ML.BAG IVPB SCH (07:50)
[2017-12-23] MEDS: BISACODYL 10 MG SUPP RECTAL SCH (08:46)
--- NOTE | 2017-12-23 08:58 | XR ---
EXAMINATION TYPE: XR chest 1V portable DATE OF EXAM: 12/23/2017 COMPARISON: Prior chest x-ray 12/22/2017 HISTORY: Extubated, cardiac surgery TECHNIQUE: Single frontal view of the chest is obtained. FINDINGS: There is been interval removal of endotracheal and NG tube. Left-sided PICC line shows the distal tip overlying superior vena cava. Median sternal drain noted. There are surgical maya over lying midline. Subclavian stent again seen, patient is post cardiac valve replacement, atrial appenda ge clipping. The heart remains enlarged. There is increased retrocardiac density as on prior exam. Le ft-sided chest tube has been removed. No evident pneumothorax. There is blunting of the right costoph renic angle. Pulmonary vascularity not significantly changed. Patient is rotated. There are overlying cardiac leads. IMPRESSION: Cardiomegaly. There may be a component of pulmonary venous hypertension and interstitial edema, effusions left greater than right with associated atelectasis versus edema, correlate to excl ude pneumonia. Interval extubation. Interval chest tube removal.
[2017-12-23] MEDS: DEXTROSE 5%-0.45% NACL 1,000 ML IV SCH (11:39)
[2017-12-23] MEDS: SODIUM CHLORIDE 0.9% 1,000 ML IV SCH (11:42)
[2017-12-23 11:54] LABS: Glucose,Whole Blood 84 mg/dL (75-99)
--- NOTE | 2017-12-23 12:47 | P.PN ---
Subjective Progress Note Date: 12/23/17 Principal diagnosis: Severe mitral regurgitation. Coronary artery disease. Paroxysmal atrial fibrillation on Coumadin for anticoagulation. Recent hospitalization for lower GI bleed, duodenal ulcer. History of left subclavian stenosis with stent placement 2014 with recent discovery of critical re-in-stent stenosis. Previous tobacco dependence with preoperative FEV1 60% of predicted. Hypertension. Hyperlipidemia. Gallbladder disease. Family history of heart disease. Preoperative nasal swab positive for MRSA. Preoperative anemia. POD #28 mitral valve replacement using a 25 mm Ribera bioprosthetic tissue valve. Coronary artery bypass grafting 1, reverse saphenous vein graft to the obtuse marginal artery. Maze procedure. Endoscopic harvesting of the right greater saphenous vein. Epi-aortic ultrasound. Intraoperative transesophageal echocardiogram. Ligation of the left atrial appendage using a 40 mm AtriClip. Intraoperative left ventricular wall tear, an unexpected but potential outcome of surgery Acute blood loss anemia, and expected outcome given patient's preoperative anemia and intraoperative bleeding. Postoperative prolonged mechanical ventilation secondary to hemodynamic instability, and unexpected but potential outcome of surgery given the extensive nature of her perioperative course Sternal incision dehiscence, a possible outcome of surgery given patient's obesity, nutrition status, debility POD #2 right rectus abdominous muscle flap closure, open sternal wound. Closure of sternal wound and muscle flap with skin graft substitute, 238 cm. Implantation of reconstructive graft for closure of abdominal wall wound, [address] Krause POD #13 sternal wound debridement with placement of wound VAC. Postoperative left lower lobe collapse secondary to mucous plugging, and unexpected but potential outcome of surgery. Bronchial washings positive for Rachana species. POD #8 bronchoscopy and bronchoalveolar lavage of the left lower lobe and extraction of mucous plug Patient's currently lying in bed in no acute distress. Remains in sinus rhythm this morning. She was successfully extubated to BiPAP yesterday. Has periodically been able to tolerate nasal cannula but not for any length of time. No complaints at this time. Daughter is at the bedside, all questions answered. Objective - Vital Signs Vital signs: Vital Signs Temp 99.2 F 12/23/17 08:00 Pulse 76 12/23/17 11:47 Resp 14 12/23/17 11:00 BP 116/54 12/19/17 10:00 Pulse Ox 100 12/23/17 11:00 Intake & Output 12/22/17 12/23/17 12/23/17 18:59 06:59 18:59 Intake Total 829 533 375 Output Total 6897 770 655 Balance -1266 -237 -280 Weight 111.5 kg 111.5 kg Intake: IV 589 533 375 ACETAMINOPHEN IV (For NPO 200 ) 1,000 mg In Empty Bag 1 bag @ 400 mls/hr IVPB Q6H [facility] Rx#:[id number] Dextrose 5%-0.45% NaCl 1, 160 000 ml @ 40 mls/hr IV . Q24H [facility] Rx#:[id number] Fluconazole in NaCl,Iso- 100 100 Osm 200 mg In Saline 1 100ml.bag @ 100 mls/hr IVPB DAILY [facility] Rx#: [id number] Meropenem 1 gm In Sodium 100 100 Chloride 0.9% 100 ml @ 100 mls/hr IVPB Q8HR [facility] Rx#:[id number] Pressure Bag 39 33 15 Sodium Chloride 0.9% 1, 200 200 000 ml @ 20 mls/hr IV . Q24H [facility] Rx#:[id number] Vancomycin 1,500 mg In 250 Sodium Chloride 0.9% 250 ml @ 125 mls/hr IVPB Q24H [facility] Rx#:[id number] Tube Feeding 180 Other 60 Output: Drainage 590 450 530 Medial Abdomen 510 170 450 Right Abdomen 80 280 80 Urine 1505 320 125 Other: Voiding Method Indwelling Catheter Indwelling Catheter Indwelling Catheter ABP, PAP, CO, CI - Last Documented Arterial Blood Pressure 137/58 Pulmonary Artery Pressure 38/33 Cardiac Output 5.8 Cardiac Index 2.9 - Constitutional General appearance: Present: cooperative, no acute distress, obese - Respiratory Details: Lungs sounds diminished bilaterally. Respirations even, nonlabored. Currently on BiPAP with FiO2 40%, 10/5 with oxygen saturation 100%. - Cardiovascular Details: S1, S2 present. Regular rate and rhythm, sinus rhythm on telemetry. Open chest with surgically implanted dressing over muscle flap. Palpable peripheral pulses bilaterally. Generalized edema present. No calf pain or tenderness noted. Right brachial arterial line, left brachial PICC line present. Antiembolism stockings, SCDs present. - Gastrointestinal Gastrointestinal Comment(s): Abdomen soft, nontender, nondistended. Active bowel sounds 4 quadrants. - Genitourinary Genitourinary Comment(s): Mason present draining clear, yellow urine. Output 30 mL/h. - Integumentary Integumentary Comment(s): Skin is warm and dry. Chest opened with dressing in place. Stage II to sacrum with local wound care in place. Abdominal incisions with HENRI drains putting out copious amount of serous drainage. - Neurologic Neurologic: Present: CNII-XII intact - Musculoskeletal Musculoskeletal: Present: generalized weakness - Psychiatric Psychiatric: Present: A&O x's 3, appropriate affect, intact judgment & insight - Allied health notes Allied health notes reviewed: nursing - Labs CBC & Chem 7: 12/23/17 05:05 12/23/17 05:05 Labs: Abnormal Lab Results - Last 24 Hours (Table) 12/23/17 12/23/17 Range/Units 05:05 05:05 WBC 17.0 H (3.8-10.6) k/uL RBC 2.96 L (3.80-5.40) m/uL Hgb 7.7 L (11.4-16.0) gm/dL Hct 26.5 L (34.0-46.0) % MCHC 29.2 L (31.0-37.0) g/dL RDW 19.8 H (11.5-15.5) % Neutrophils # 15.4 H (1.3-7.7) k/uL Lymphocytes # 0.6 L (1.0-4.8) k/uL Carbon Dioxide 33 H (22-30) mmol/L BUN 33 H (7-17) mg/dL Creatinine 0.50 L (0.52-1.04) mg/dL AST 78 H (14-36) U/L Total Protein 5.9 L (6.3-8.2) g/dL Albumin 2.6 L (3.5-5.0) g/dL - Imaging and Cardiology Chest x-ray: report reviewed, image reviewed Assessment and Plan (1) Acute blood loss anemia Current Visit: Yes Status: Acute Code(s): D62 - ACUTE POSTHEMORRHAGIC ANEMIA SNOMED Code(s): 486714560 (2) CAD (coronary artery disease) Current Visit: Yes Status: Chronic Code(s): I25.10 - ATHSCL HEART DISEASE OF [place] CORONARY ARTERY W/O ANG PCTRS SNOMED Code(s): 74609493 (3) Hyperlipidemia Current Visit: Yes Status: Chronic Code(s): E78.5 - HYPERLIPIDEMIA, UNSPECIFIED SNOMED Code(s): 24160853 (4) Hypertension Current Visit: Yes Status: Chronic Code(s): I10 - ESSENTIAL (PRIMARY) HYPERTENSION SNOMED Code(s): 87054299 (5) Severe mitral regurgitation Current Visit: Yes Status: Chronic Code(s): I34.0 - NONRHEUMATIC MITRAL ( VALVE) INSUFFICIENCY SNOMED Code(s): 33162094 (6) Stenosis of left subclavian artery Current Visit: Yes Status: Chronic Code(s): I77.1 - STRICTURE OF ARTERY SNOMED Code(s): 41289997543177179 (7) Paroxysmal atrial fibrillation Current Visit: No Status: Resolved Code(s): I48.0 - PAROXYSMAL ATRIAL FIBRILLATION SNOMED Code(s): 130114690 (8) History of GI bleed Current Visit: No Status: Resolved Code(s): Z87.19 - PERSONAL HISTORY OF OTHER DISEASES OF THE DIGESTIVE SYSTEM SNOMED Code(s): 511385588 (9) Family history of coronary artery disease Current Visit: Yes Status: Chronic Code(s): Z82.49 - FAMILY HX OF ISCHEM HEART DIS AND OTH DIS OF THE CIRC SYS SNOMED Code(s): 320803872 Plan: 1. Continue baby aspirin, statin, beta krunal. 2. Continue amiodarone for atrial fibrillation prophylaxis. No further IV amiodarone. 3. BiPAP management per pulmonology. Wean as tolerated. 4. Continue meropenem, Vanco per Dr. Olivera. Continue Diflucan. 5. Will monitor labs, chest x-rays. 6. Bronchodilators per pulmonology. 7. Will hold off on Coumadin for now as patient will need for future surgery. No IV heparin. 8. GI/DVT prophylaxis. 9. Increase activity. PT/OT/cardiac rehab following. 10. Will place Dobbhoff and restart tube feedings. 11. Keep Mason for strict accurate intake and output. 12. Dressing change to sternum to be done daily by nurse practitioners. 13. More recommendations as patient progresses. Time with Patient: Greater than 30
[2017-12-23] MEDS ORDERED: EPINEPHrine 10 ML SYRINGE (0.1 MG/ML) ONE (14:00)
[2017-12-23] MEDS ORDERED: PROPOFOL 100 ML IV ONE ×2 (14:19→17:30)
--- NOTE | 2017-12-23 14:35 | P.PN ---
Subjective Progress Note Date: 12/23/17 Principal diagnosis: Status post 1 vessel bypass grafting and mitral valve replacement. Progress note dated 12/20/2017 This is a 67-year-old female here in the hospital since November 25. The patient had a one-vessel bypass on the any mitral valve repair/replacement as well as a modified maze procedure on the . She was initially extubated on November 30 of BiPAP. When I left her last, which was on December 04, she was postop day #8 status post bypass grafting and mitral valve replacement. She seemed to do pretty well at that time on BiPAP therapy. Since that time, she's had a cardioversion on December 07 a dehiscence of her sternal wound on December 08 and a sister neck to me on December 10. She currently remains intubated. She has been on PSV 10 CPAP and yesterday she spent 10-12 hours on the settings. She apparently is going for a flap repair on December 21 which is tomorrow. She's getting saline IV at KVO and vital high protein at 40. Her vent settings include the assist control mode rate of 14 tidal volume 500 FiO2 40% PEEP of 5. Arterial blood gases show a PaO2 of 108 a PaCO2 of 45 and a pH of 7.47. I'm inclined not to wean her today given the fact that she'll be going for a flap repair tomorrow. In addition, her respiratory rates a bit high in her heart rate is high. We will go do a daily interruption of sedation and attempt a spontaneous breathing trial. Progress note dated 12/21/2017 This is a 67-year-old female here in the hospital since . The patient had a one-vessel bypass on the and mitral valve replacement. She also had a modified maze procedure on the same day. She was initially extubated on 2 BiPAP. When I left her last, she was doing recently well on and off of BiPAP. Currently, the patient is going to the operating room today for a flap repair to be done by the plastic surgeon. The patient had a cardioversion on December 07, a dehiscence of her sternal incision on December 08, and a sternectomy on December 10. Currently, she is on the assist control mode with a tidal volume 500, a rate of 14, and FiO2 of 40% to be reduced down to 30%, and a PEEP of 5. Arterial blood gases show a PaO2 of 148, a PaCO2 of 36 and a pH of 7.49. The patient's on a saline IV at 20 mL an hour, propofol at 30 mics per kilogram per minute tube feeds which are on hold for the surgery. Again she is going to have a flap repair today. Chest x-ray shows similar changes to yesterday. Progress note dated 12/22/2017 67-year-old female who's been in the hospital since November 25. The patient had a one-vessel bypass grafting on the and mitral valve replacement. She also had a modified maze procedure on the same day. She was initially extubated on November 30 to BiPAP. The patient had also to complications after I saw her last including on the need for cardioversion on December 07, dehiscence of her sternal incision on December 08, and sternectomy on December 10. Yesterday, she had a flap repair done by one of the plastic surgeons. She is postop day #1 for that. This morning she was on the assist control mode rate of 14, tidal volume 500, FiO2 30%, and PEEP of 5. Her arterial blood gases show a PaO2 of 95 a PaCO2 of 39 and a pH of 7.49. At that time the patient was on propofol at 25 mcg/m, a saline IV at KVO and vital high protein at a rate of 30 with a goal of 40. The patient looks great today and we went ahead and extubated her to BiPAP. She is on 10 and 5 and 40%. Seemed be doing relatively well with that at the current time. Progress note dated 12/23/2017 Patient is seen again today in the intensive care unit. She was extubated to BiPAP yesterday. She did wear the BiPAP mostly last night. 10/5 and 40%. She did tolerate a brief trial on 5 L high flow nasal cannula this morning as well. She currently denies any worsening shortness of breath. She has a loose nonproductive cough. Chest x-ray shows evidence of cardiomegaly with some pulmonary venous hypertension and interstitial edema. There is left greater than right associated atelectasis. White count 17.0. Hemoglobin 7.7. Platelet count 241,000. Creatinine 0.50. She is continued on vancomycin, meropenem, fluconazole. Objective - Vital Signs Vital signs: Vital Signs Temp 99.2 F 12/23/17 08:00 Pulse 76 12/23/17 11:47 Resp 14 12/23/17 11:00 BP 116/54 12/19/17 10:00 Pulse Ox 100 12/23/17 11:00 Intake & Output 12/22/17 12/23/17 12/23/17 18:59 06:59 18:59 Intake Total 829 533 418 Output Total 0173 770 795 Balance -1266 -237 -445 Weight 111.5 kg 111.5 kg Intake: IV 589 533 418 ACETAMINOPHEN IV (For NPO 200 ) 1,000 mg In Empty Bag 1 bag @ 400 mls/hr IVPB Q6H [facility] Rx#:[id number] Dextrose 5%-0.45% NaCl 1, 200 000 ml @ 40 mls/hr IV . Q24H [facility] Rx#:[id number] Fluconazole in NaCl,Iso- 100 100 Osm 200 mg In Saline 1 100ml.bag @ 100 mls/hr IVPB DAILY [facility] Rx#: [id number] Meropenem 1 gm In Sodium 100 100 Chloride 0.9% 100 ml @ 100 mls/hr IVPB Q8HR [facility] Rx#:[id number] Pressure Bag 39 33 18 Sodium Chloride 0.9% 1, 200 200 000 ml @ 20 mls/hr IV . Q24H [facility] Rx#:[id number] Vancomycin 1,500 mg In 250 Sodium Chloride 0.9% 250 ml @ 125 mls/hr IVPB Q24H [facility] Rx#:[id number] Tube Feeding 180 Other 60 Output: Drainage 590 450 630 Medial Abdomen 510 170 550 Right Abdomen 80 280 80 Urine 1505 320 165 Other: Voiding Method Indwelling Catheter Indwelling Catheter Indwelling Catheter ABP, PAP, CO, CI - Last Documented Arterial Blood Pressure 137/58 Pulmonary Artery Pressure 38/33 Cardiac Output 5.8 Cardiac Index 2.9 - Exam No acute distress, The patient's currently on BiPAP alternating with 5 L high flow nasal cannula. HEENT examination is grossly unremarkable. Mucous membranes are moist. No oral lesions. Neck supple. Full range of motion. No adenopathy thyromegaly or neck vein distention. Chest wall dressing dry and intact. Dressing changed earlier revealed moderate serosanguineous drainage without open incision with mesh held with maya what gauze dry gauze with cover roll. Cardiovascular examination reveals regular rhythm rate. S1-S2 normal. No S3 or S4. No discernible murmur noted. Lungs reveal very coarse bilateral breath sounds. Her sounds are equal bilaterally. No wheezes. A few scattered crackles. Abdomen soft bowel sounds are heard. No masses or tenderness. Extremities are intact. No cyanosis or clubbing. There is slight edema. Skin is without rash or lesion. Neurologic examination is difficult to assess, but she is awake and alert - Labs CBC & Chem 7: 12/23/17 05:05 12/23/17 05:05 Labs: Abnormal Lab Results - Last 24 Hours (Table) 12/23/17 12/23/17 Range/Units 05:05 05:05 WBC 17.0 H (3.8-10.6) k/uL RBC 2.96 L (3.80-5.40) m/uL Hgb 7.7 L (11.4-16.0) gm/dL Hct 26.5 L (34.0-46.0) % MCHC 29.2 L (31.0-37.0) g/dL RDW 19.8 H (11.5-15.5) % Neutrophils # 15.4 H (1.3-7.7) k/uL Lymphocytes # 0.6 L (1.0-4.8) k/uL Carbon Dioxide 33 H (22-30) mmol/L BUN 33 H (7-17) mg/dL Creatinine 0.50 L (0.52-1.04) mg/dL AST 78 H (14-36) U/L Total Protein 5.9 L (6.3-8.2) g/dL Albumin 2.6 L (3.5-5.0) g/dL Assessment and Plan Assessment: Assessment Postop day #24 status post one-vessel bypass grafting and mitral valve replacement Postoperative respiratory failure with failure to wean, with extubation occurring on 11/30/2017 and again 12/23/2007 Status post cardioversion on December 07 Status post wound dehiscence on December 08 Status post sternotomy on December 10 Flap repair on 12/21/2017, postop day #2 Reintubation and mechanical ventilation with failure to wean Chest x-ray evidence of fluid overload Acute blood loss anemia requiring blood transfusion History of hypertension History of severe mitral regurgitation History of left subclavian stenosis Paroxysmal atrial fibrillation History of GI bleed Obesity Possible aspiration with aspiration pneumonia Plan: The patient was seen and evaluated by Dr. Garcia. Chest x-ray and labs were reviewed. We will continue with her current medications for now. The patient is alternating between BiPAP 10/5 and 40% FiO2 versus 5 L high flow nasal cannula. There is still some concerns regarding possible aspiration. The plan is for a Dobbhoff tube insertion today. We'll continue to monitor her here closely in the intensive care unit. We'll continue to follow and make further recommendations based on her clinical status. Critical care time 35 minutes. I, the cosigning physician, performed a history & physical examination of the patient. Lungs sounds have few scattered rhonchi, crackles in the posterior bases. Maintaining good O2 saturations in the 90s on 40% FiO2. I discussed the assessment and plan of care with my nurse practitioner, Tiffany Iniguez. I attest to the above note as dictated by her. Time with Patient: Greater than 30
--- NOTE | 2017-12-23 14:37 | XR ---
EXAMINATION TYPE: XR chest 1V portable DATE OF EXAM: 12/23/2017 COMPARISON: Prior chest x-ray 12/23/2017 HISTORY: Intubated TECHNIQUE: Single frontal view of the chest is obtained. FINDINGS: There is been interval placement of endotracheal tube. Tube is overlying the tracheal air column in appropriate position. No other significant interval change. IMPRESSION: Interval intubation
--- NOTE | 2017-12-23 14:39 | XR ---
EXAMINATION TYPE: XR chest 1V portable DATE OF EXAM: 12/23/2017 COMPARISON: Prior chest x-ray same date earlier time HISTORY: Dobbhoff tube placement TECHNIQUE: Single frontal view of the chest is obtained. FINDINGS: Interval placement of a Dobbhoff tube, tube is overlying the thoracic inlet. No significan t interval change. IMPRESSION: Dobbhoff tube is overlying the thoracic inlet.
[2017-12-23] MEDS: PROPOFOL 1,000 MG in EMPTY BAG 1 BAG IV SCH ×2 (15:00→21:32)
[2017-12-23 15:40] LABS: ABG Base Excess 2.1 mmol/L; ABG HCO3 29 mmol/L (21-25); ABG PCO2 62 mmHg (35-45); ABG PH 7.28 (7.35-7.45); ABG PO2 321 mmHg (83-108); ABG TCO2 31 mmol/L (19-24)
[2017-12-23] MEDS: AMIODARONE 200 MG TAB PO SCH ×2 (15:42→21:33)
[2017-12-23] MEDS: ASPIRIN 81 MG PO SCH (15:42)
[2017-12-23] MEDS: ATORVASTATIN 40 MG TAB PO SCH (15:42)
[2017-12-23] MEDS: VANCOMYCIN 1,500 MG in SODIUM CHLORIDE 0.9% 250 ML IVPB SCH (15:48)
[2017-12-23] MEDS ORDERED: ALBUMIN HUMAN 5% 250 ML in EMPTY BAG 1 BAG IVPB STA (16:05)
[2017-12-23] MEDS ORDERED: NOREPINEPHRIN 16 MG-0.9%NS PMX 16 MG/250 ML ML IV SCH (16:15)
--- NOTE | 2017-12-23 17:32 | P.PN ---
Subjective Progress Note Date: 12/23/17 Progress note being dictated for Dr. Lugo Interval history: This is 67-year-old female status post CABG, mitral valve replacement, status post multiple blood products transfusions. Remains vent dependent on 40% FiO2/+5 of PEEP. Chest x-ray reporting fluid overload, improvement in volume status, aeration.Maintained on norepinephrine, Primacor, dopamine and insulin drip. Cardiac index 2.7. Telemetry atrial flutter/sinus tach. Tube feeding initiated via OG tube. Hemoglobin 7.3, Platelets decreased to 64 today, maintained on low-dose aspirin. Review systems unable to obtain as patient sedated and on mechanical ventilation. Active Medications Albuterol/Ipratropium (Duoneb 0.5 Mg-3 Mg/3 Ml Soln) 3 ml INHALATION RT-Q4H [facility] Last Admin: 11/29/17 15:17 Dose: 3 ml Albuterol/Ipratropium (Duoneb 0.5 Mg-3 Mg/3 Ml Soln) 3 ml INHALATION RT-Q2H PRN PRN Reason: Shortness Of Breath Or Wheezing Amiodarone HCl (Cordarone) 200 mg PO BID [facility] Aspirin (Aspirin) 81 mg PO DAILY [facility] Last Admin: 11/29/17 08:54 Dose: 81 mg Atorvastatin Calcium (Lipitor) 40 mg PO DAILY [facility] Last Admin: 11/29/17 08:54 Dose: 40 mg Benzocaine/Menthol (Cepacol Lozenge) 1 each MUCOUS MEM Q2H PRN PRN Reason: Sore Throat Bisacodyl (Dulcolax) 10 mg RECTAL DAILY PRN PRN Reason: Constipation Chlorhexidine Gluconate (Peridex) 15 ml MUCOUS MEM BID [facility] Last Admin: 11/29/17 08:48 Dose: 15 ml Furosemide (Lasix) 40 mg IV ONCE ONE Stop: 11/29/17 20:01 Propofol 1,000 mg/ IV Solution 100 mls @ 0 mls/hr IV .Q0M [facility]; Titrate PRN Reason: Protocol Last Admin: 11/29/17 17:54 Dose: 26.13 mcg/kg/min, 17.2 mls/hr Norepinephrine Bitartrate (Levophed-0.9% Nacl 16 Mg/250ml Pmx) 16 mg in 250 mls @ 0 mls/hr IV .Q0M [facility]; Titrate PRN Reason: Protocol Last Admin: 11/29/17 17:54 Dose: 2 mcg/min, 1.875 mls/hr Sodium Chloride (Saline 0.45%) 1,000 mls @ 30 mls/hr IV .Q24H [facility] Last Admin: 11/29/17 10:28 Dose: Not Given Milrinone Lactate/Dextrose 20 (mg/ IV Solution) 100 mls @ 6.58 mls/hr IV .[id number] [facility] PRN Reason: 0.2 MCG/KG/MIN Last Admin: 11/29/17 15:38 Dose: 0.2 mcg/kg/min, 6.58 mls/hr Insulin Aspart (Novolog) 0 unit SQ Q6HR [facility] PRN Reason: Protocol Last Admin: 11/29/17 12:36 Dose: Not Given Magnesium Hydroxide (Milk Of Magnesia) 2,400 mg PO BID PRN PRN Reason: Constipation Metoprolol Tartrate (Lopressor) 12.5 mg PO BID [facility] Last Admin: 11/29/17 08:55 Dose: 12.5 mg Miscellaneous Information (Magnesium Per Protocol) 1 each MISCELLANE DAILY PRN ; Protocol PRN Reason: Per Protocol Miscellaneous Information (Phosphorus Per Protocol) 1 each MISCELLANE DAILY PRN ; Protocol PRN Reason: Per Protocol Miscellaneous Information (Potassium Per Protocol) 1 each MISCELLANE DAILY PRN ; Protocol PRN Reason: Per Protocol Miscellaneous Information (Potassium Per Protocol) 1 each MISCELLANE DAILY PRN ; Protocol PRN Reason: Per Protocol Morphine Sulfate (Morphine Oral Dana 2mg/Ml) 6 mg PO Q2H PRN PRN Reason: Severe Pain Ondansetron HCl (Zofran) 4 mg IVP Q6HR PRN PRN Reason: Nausea And Vomiting Pantoprazole Sodium (Protonix) 40 mg IVP DAILY [facility] Last Admin: 11/29/17 08:55 Dose: 40 mg Senna/Docusate Sodium (Senokot-S) 2 each PO HS [facility] Last Admin: 11/28/17 20:41 Dose: 2 each Sodium Chloride (Saline Flush) 10 ml IV BID [facility] Last Admin: 11/29/17 08:56 Dose: 10 ml 11/30/2017 Chest x-ray reporting increased congestion, received additional Lasix. extubated this morning, currently maintained on BiPAP. Norepinephrine weaned off this morning. Maintained on Primacor, cardiac index 2.6. Received 1 dose of Lasix IV push. Renal function improving. Hemoglobin 7, platelets increased to 74. Atrial flutter per telemetry. Review systems unable to obtain as patient BiPAP dependent. Active Medications Generic Name Dose Route Start Last Admin Trade Name Freq PRN Reason Stop Dose Admin Albuterol/Ipratropium 3 ml 11/25/17 20:00 11/30/17 15:23 Duoneb 0.5 Mg-3 Mg/3 Ml Soln INHALATION 3 ml RT-Q4H [facility] Administration Albuterol/Ipratropium 3 ml 11/26/17 17:53 Duoneb 0.5 Mg-3 Mg/3 Ml Soln INHALATION RT-Q2H PRN Shortness Of Breath Or Wheezing Amiodarone HCl 200 mg 11/29/17 21:00 11/30/17 08:14 Cordarone PO 200 mg BID [facility] Administration Aspirin 81 mg 11/26/17 10:15 11/30/17 08:15 Aspirin PO 81 mg DAILY [facility] Administration Atorvastatin Calcium 40 mg 11/26/17 09:00 11/30/17 08:14 Lipitor PO 40 mg DAILY [facility] Administration Benzocaine/Menthol 1 each 11/25/17 19:03 Cepacol Lozenge MUCOUS MEM Q2H PRN Sore Throat Bisacodyl 10 mg 11/26/17 17:52 Dulcolax RECTAL DAILY PRN Constipation Fondaparinux 2.5 mg 11/30/17 11:30 11/30/17 13:23 Arixtra SQ 2.5 mg DAILY [facility] Administration Norepinephrine Bitartrate 16 mg in 250 mls @ 0 mls/hr 11/26/17 04:15 11:58 Levophed-0.9% Nacl 16 Mg/250ml Pmx IV 0 mcg/min .Q0M [facility] 0 mls/hr Protocol Titration Titrate Sodium Chloride 1,000 mls @ 10 mls/hr 11/26/17 10:15 11/30/17 12:51 Saline 0.45% IV Not Given .Q24H [facility] Milrinone Lactate/Dextrose 20 100 mls @ 6.58 mls/hr 11/29/17 15:00 11/30/17 08:16 mg/ IV Solution IV 0.2 mcg/kg/min .[id number] [facility] 6.58 mls/hr 0.2 MCG/KG/MIN Infusion Insulin Aspart 0 unit 11/29/17 12:00 11/30/17 12:50 Novolog SQ Not Given Q6HR [facility] Protocol Magnesium Hydroxide 2,400 mg 11/26/17 17:53 Milk Of Magnesia PO BID PRN Constipation Metoprolol Tartrate 12.5 mg 11/26/17 09:00 11/30/17 08:15 Lopressor PO 12.5 mg BID [facility] Administration Miscellaneous Information 1 each 11/25/17 19:03 Magnesium Per Protocol MISCELLANE DAILY PRN Per Protocol Protocol Miscellaneous Information 1 each 11/25/17 19:03 Phosphorus Per Protocol MISCELLANE DAILY PRN Per Protocol Protocol Miscellaneous Information 1 each 11/25/17 19:03 Potassium Per Protocol MISCELLANE DAILY PRN Per Protocol Protocol Miscellaneous Information 1 each 11/29/17 12:01 Potassium Per Protocol MISCELLANE DAILY PRN Per Protocol Protocol Morphine Sulfate 6 mg 11/29/17 13:31 Morphine Oral Dana 2mg/Ml PO Q2H PRN Severe Pain Ondansetron HCl 4 mg 11/25/17 19:03 Zofran IVP Q6HR PRN Nausea And Vomiting Pantoprazole Sodium 40 mg 11/26/17 09:00 11/30/17 08:15 Protonix IVP 40 mg DAILY [facility] Administration Senna/Docusate Sodium 2 each 11/26/17 21:00 11/29/17 20:40 Senokot-S PO 2 each HS [facility] Administration Sodium Chloride 10 ml 11/25/17 21:00 11/30/17 08:15 Saline Flush IV 10 ml BID [facility] Administration 12/01/2017 Breathing improving, weaned off of BiPAP and down to 6 L high flow. Wheezing resolved. Chest x-ray reports improvement. Staff reports patient appeared to be choking on pills last night, speech therapy consulted. Receiving one unit of packed RBCs for hemoglobin of 6.7. Mediastinal chest tubes discontinued, left pleural chest tube remains. Maintained on Primacor. Telemetry atrial flutter. Review of systems: CONSTITUTIONAL: No fever, no malaise HEENT: No recent visual problems or hearing problems. Denied any sore throat. CARDIOVASCULAR: No chest pain, no palpitations, no syncope. PULMONARY: Improving shortness of breath, no cough, no hemoptysis. GASTROINTESTINAL: No diarrhea, no nausea, no vomiting, no abdominal pain. Normoactive bowel sounds. NEUROLOGICAL: No headaches, diffuse weakness, no numbness. HEMATOLOGICAL: Denies any bleeding or petechiae. GENITOURINARY: Denies any burning micturition, frequency, or urgency. ENDOCRINE: Denies any polyuria or polydipsia. PSYCHIATRIC: No anxiety, no depression Active Medications Hydrocodone Bitart/Acetaminophen (Udell 5-325) 1 each PO Q4HR PRN PRN Reason: MILD TO MODERATE Pain Last Admin: 12/01/17 22:44 Dose: 1 each Hydrocodone Bitart/Acetaminophen (Udell 5-325) 2 each PO Q4HR PRN PRN Reason: MODERATE TO SEVERE Pain Albuterol/Ipratropium (Duoneb 0.5 Mg-3 Mg/3 Ml Soln) 3 ml INHALATION RT-Q4H [facility] Last Admin: 12/02/17 15:06 Dose: 3 ml Albuterol/Ipratropium (Duoneb 0.5 Mg-3 Mg/3 Ml Soln) 3 ml INHALATION RT-Q2H PRN PRN Reason: Shortness Of Breath Or Wheezing Last Admin: 12/01/17 18:09 Dose: 3 ml Amiodarone HCl (Cordarone) 200 mg PO BID [facility] Last Admin: 12/02/17 08:10 Dose: 200 mg Aspirin (Aspirin) 81 mg PO DAILY [facility] Last Admin: 12/02/17 08:10 Dose: 81 mg Atorvastatin Calcium (Lipitor) 40 mg PO DAILY [facility] Last Admin: 12/02/17 08:10 Dose: 40 mg Benzocaine/Menthol (Cepacol Lozenge) 1 each MUCOUS MEM Q2H PRN PRN Reason: Sore Throat Bisacodyl (Dulcolax) 10 mg RECTAL DAILY PRN PRN Reason: Constipation Budesonide (Pulmicort) 1 mg INHALATION RT-BID [facility] Last Admin: 12/02/17 07:19 Dose: 1 mg Fondaparinux (Arixtra) 2.5 mg SQ DAILY [facility] Last Admin: 12/02/17 08:10 Dose: 2.5 mg Formoterol Fumarate (Perforomist) 20 mcg INHALATION RT-BID [facility] Last Admin: 12/02/17 07:36 Dose: 20 mcg Norepinephrine Bitartrate (Levophed-0.9% Nacl 16 Mg/250ml Pmx) 16 mg in 250 mls @ 0 mls/hr IV .Q0M [facility]; Titrate PRN Reason: Protocol Last Titration: 11/30/17 11:58 Dose: 0 mcg/min, 0 mls/hr Sodium Chloride (Saline 0.45%) 1,000 mls @ 10 mls/hr IV .Q24H [facility] Last Admin: 12/01/17 14:04 Dose: 10 mls/hr Milrinone Lactate/Dextrose 20 (mg/ IV Solution) 100 mls @ 6.58 mls/hr IV .[id number] [facility] PRN Reason: 0.2 MCG/KG/MIN Last Admin: 12/02/17 08:57 Dose: 0.2 mcg/kg/min, 6.58 mls/hr Insulin Aspart (Novolog) 0 unit SQ Q6HR [facility] PRN Reason: Protocol Last Admin: 12/02/17 12:53 Dose: Not Given Magnesium Hydroxide (Milk Of Magnesia) 2,400 mg PO BID PRN PRN Reason: Constipation Methylprednisolone Sodium Succinate (Solu-Medrol) 30 mg IV Q8HR [facility] Last Admin: 12/02/17 08:10 Dose: 30 mg Metoprolol Tartrate (Lopressor) 25 mg PO BID [facility] Last Admin: 12/02/17 08:59 Dose: 25 mg Miscellaneous Information (Magnesium Per Protocol) 1 each MISCELLANE DAILY PRN ; Protocol PRN Reason: Per Protocol Miscellaneous Information (Phosphorus Per Protocol) 1 each MISCELLANE DAILY PRN ; Protocol PRN Reason: Per Protocol Miscellaneous Information (Potassium Per Protocol) 1 each MISCELLANE DAILY PRN ; Protocol PRN Reason: Per Protocol Miscellaneous Information (Potassium Per Protocol) 1 each MISCELLANE DAILY PRN ; Protocol PRN Reason: Per Protocol Ondansetron HCl (Zofran) 4 mg IVP Q6HR PRN PRN Reason: Nausea And Vomiting Pantoprazole Sodium (Protonix) 40 mg IVP DAILY [facility] Last Admin: 12/02/17 08:10 Dose: 40 mg Senna/Docusate Sodium (Senokot-S) 2 each PO HS [facility] Last Admin: 12/01/17 21:55 Dose: 2 each Sodium Chloride (Saline Flush) 10 ml IV BID [facility] Last Admin: 12/02/17 12:51 Dose: 10 ml 12/02/17 Much more alert today. Oxygen weaned further down to 5 L nasal cannula, maintaining O2 sats in the high 90s. Pleural chest tube discontinued. Chest x- ray reporting probable right lower lobe atelectasis/effusion. Underwent modified barium swallow, with recommendations of regular diet, thin liquids, chin tuck, no straw, small bites/sepsis/sips; no impairment with exception of mild transient penetration with thin liquids which patient independently cleared. Yesterday receive 1 unit of packed RBCs with current hemoglobin 8. Weaning of Primacor in progress. 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 Review of systems: CONSTITUTIONAL: No fever, no malaise, no fatigue. HEENT: No recent visual problems or hearing problems. Denied any sore throat. CARDIOVASCULAR: No chest pain, no palpitations, no syncope. PULMONARY: Minimal shortness of breath, no cough, no hemoptysis. GASTROINTESTINAL: No diarrhea, no nausea, no vomiting, no abdominal pain. Normoactive bowel sounds. NEUROLOGICAL: No headaches, no weakness, no numbness. HEMATOLOGICAL: Denies any bleeding or petechiae. GENITOURINARY: Denies any burning micturition, frequency, or urgency. MUSCULOSKELETAL/RHEUMATOLOGICAL: Denies any joint pain, swelling, or any muscle pain. ENDOCRINE: Denies any polyuria or polydipsia. PSYCHIATRIC: No anxiety, no depression The rest of the 14 point review of systems is negative Active Medications Generic Name Dose Route Start Last Admin Trade Name Freq PRN Reason Stop Dose Admin Hydrocodone Bitart/Acetaminophen 1 each 12/01/17 12:20 12/01/17 22:44 Udell 5-325 PO 1 each Q4HR PRN Administration MILD TO MODERATE Pain Hydrocodone Bitart/Acetaminophen 2 each 12/01/17 12:20 Udell 5-325 PO Q4HR PRN MODERATE TO SEVERE Pain Albuterol/Ipratropium 3 ml 11/25/17 20:00 12/02/17 15:06 Duoneb 0.5 Mg-3 Mg/3 Ml Soln INHALATION 3 ml RT-Q4H [facility] Administration Albuterol/Ipratropium 3 ml 11/26/17 17:53 12/01/17 18:09 Duoneb 0.5 Mg-3 Mg/3 Ml Soln INHALATION 3 ml RT-Q2H PRN Administration Shortness Of Breath Or Wheezing Amiodarone HCl 200 mg 11/29/17 21:00 12/02/17 08:10 Cordarone PO 200 mg BID [facility] Administration Aspirin 81 mg 11/26/17 10:15 12/02/17 08:10 Aspirin PO 81 mg DAILY [facility] Administration Atorvastatin Calcium 40 mg 11/26/17 09:00 12/02/17 08:10 Lipitor PO 40 mg DAILY [facility] Administration Benzocaine/Menthol 1 each 11/25/17 19:03 Cepacol Lozenge MUCOUS MEM Q2H PRN Sore Throat Bisacodyl 10 mg 11/26/17 17:52 Dulcolax RECTAL DAILY PRN Constipation Budesonide 1 mg 12/01/17 20:00 12/02/17 07:19 Pulmicort INHALATION 1 mg RT-BID [facility] Administration Fondaparinux 2.5 mg 11/30/17 11:30 12/02/17 08:10 Arixtra SQ 2.5 mg DAILY [facility] Administration Formoterol Fumarate 20 mcg 12/01/17 20:00 12/02/17 07:36 Perforomist INHALATION 20 mcg RT-BID [facility] Administration Norepinephrine Bitartrate 16 mg in 250 mls @ 0 mls/hr 11/26/17 04:15 11:58 Levophed-0.9% Nacl 16 Mg/250ml Pmx IV 0 mcg/min .Q0M [facility] 0 mls/hr Protocol Titration Titrate Sodium Chloride 1,000 mls @ 10 mls/hr 11/26/17 10:15 12/02/17 15:41 Saline 0.45% IV Not Given .Q24H [facility] Milrinone Lactate/Dextrose 20 100 mls @ 6.58 mls/hr 11/29/17 15:00 12/02/17 08:57 mg/ IV Solution IV 0.2 mcg/kg/min .[id number] [facility] 6.58 mls/hr 0.2 MCG/KG/MIN Administration Insulin Aspart 0 unit 11/29/17 12:00 12/02/17 12:53 Novolog SQ Not Given Q6HR [facility] Protocol Magnesium Hydroxide 2,400 mg 11/26/17 17:53 Milk Of Magnesia PO BID PRN Constipation Methylprednisolone Sodium Succinate 30 mg 12/01/17 16:00 12/02/17 08:10 Solu-Medrol IV 30 mg Q8HR [facility] Administration Metoprolol Tartrate 25 mg 12/02/17 09:00 12/02/17 08:59 Lopressor PO 25 mg BID [facility] Administration Miscellaneous Information 1 each 11/25/17 19:03 Magnesium Per Protocol MISCELLANE DAILY PRN Per Protocol Protocol Miscellaneous Information 1 each 11/25/17 19:03 Phosphorus Per Protocol MISCELLANE DAILY PRN Per Protocol Protocol Miscellaneous Information 1 each 11/25/17 19:03 Potassium Per Protocol MISCELLANE DAILY PRN Per Protocol Protocol Miscellaneous Information 1 each 11/29/17 12:01 Potassium Per Protocol MISCELLANE DAILY PRN Per Protocol Protocol Ondansetron HCl 4 mg 11/25/17 19:03 Zofran IVP Q6HR PRN Nausea And Vomiting Pantoprazole Sodium 40 mg 11/26/17 09:00 12/02/17 08:10 Protonix IVP 40 mg DAILY [facility] Administration Senna/Docusate Sodium 2 each 11/26/17 21:00 12/01/17 21:55 Senokot-S PO 2 each HS [facility] Administration Sodium Chloride 10 ml 11/25/17 21:00 12/02/17 12:51 Saline Flush IV 10 ml BID [facility] Administration 12/03/17 maintained on nebulized bronchodilators, steroids,patient tachypneic, requiring BiPap throughout today off and on. Chest x-ray suggestive of fluid overload. Received additional Lasix. Maintained on oral amiodarone, remains in a-flutter. Overdrive atrial pacing attempted unsuccessfully. Digoxin 2 ordered. Pacer wires discontinued today. Stool at bedside with PT OT, remains extremely weak. Primacor weaned off yesterday. 2017 currently in atrial fibrillation with heart rates up into the 150s, scheduled for cardioversion tomorrow. INR 2.2. Patient currently wearing BiPAP ,has required on and off all day. Chest ultrasound reporting bilateral pleural effusions, larger on the right. Thoracentesis on hold, awaiting cardioversion.Chest x-ray reporting prominent interstitium and central vascularity, increased bibasilar density. Attempting diuresing with Lasix and Zaroxolyn. Review systems unable to obtain as patient currently on BiPAP. Active Medications Hydrocodone Bitart/Acetaminophen (Udell 5-325) 1 each PO Q4HR PRN PRN Reason: MILD TO MODERATE Pain Last Admin: 12/07/17 10:48 Dose: 1 each Hydrocodone Bitart/Acetaminophen (Udell 5-325) 2 each PO Q4HR PRN PRN Reason: MODERATE TO SEVERE Pain Last Admin: 12/07/17 16:39 Dose: 2 each Albuterol/Ipratropium (Duoneb 0.5 Mg-3 Mg/3 Ml Soln) 3 ml INHALATION RT-Q2H PRN PRN Reason: Shortness Of Breath Or Wheezing Last Admin: 12/01/17 18:09 Dose: 3 ml Albuterol/Ipratropium (Duoneb 0.5 Mg-3 Mg/3 Ml Soln) 3 ml INHALATION RT-QID [facility] Last Admin: 12/07/17 16:43 Dose: 3 ml Amiodarone HCl (Cordarone) 200 mg PO BID [facility] Aspirin (Aspirin) 81 mg PO DAILY [facility] Last Admin: 12/07/17 08:53 Dose: 81 mg Atorvastatin Calcium (Lipitor) 40 mg PO DAILY [facility] Last Admin: 12/07/17 08:53 Dose: 40 mg Benzocaine/Menthol (Cepacol Lozenge) 1 each MUCOUS MEM Q2H PRN PRN Reason: Sore Throat Bisacodyl (Dulcolax) 10 mg RECTAL DAILY PRN PRN Reason: Constipation Budesonide (Pulmicort) 1 mg INHALATION RT-BID [facility] Last Admin: 12/07/17 08:36 Dose: 1 mg Escitalopram Oxalate (Lexapro) 10 mg PO HS [facility] Furosemide (Lasix) 40 mg IV Q12HR [facility] Last Admin: 12/07/17 08:33 Dose: 40 mg Piperacillin/Tazobactam/ (Dextrose 3.375 gm/ IV Solution) 50 mls @ 12.5 mls/hr IVPB Q8HR [facility] Last Admin: 12/07/17 16:39 Dose: 12.5 mls/hr Sodium Chloride (Saline 0.9%) 1,000 mls @ 20 mls/hr IV .Q24H [facility] Last Admin: 12/07/17 13:00 Dose: 20 mls/hr Lactated Ringer's (Lactated Ringers) 1,000 mls @ 20 mls/hr IV .Q24H [facility] Last Admin: 12/06/17 20:45 Dose: 20 mls/hr Insulin Aspart (Novolog) 0 unit SQ ACHS [facility] PRN Reason: Protocol Last Admin: 12/07/17 13:01 Dose: 2 unit Magnesium Hydroxide (Milk Of Magnesia) 2,400 mg PO BID PRN PRN Reason: Constipation Methylprednisolone Sodium Succinate (Solu-Medrol) 30 mg IV Q8HR [facility] Last Admin: 12/07/17 16:39 Dose: 30 mg Metolazone (Zaroxolyn) 5 mg PO DAILY [facility] Last Admin: 12/07/17 08:53 Dose: 5 mg Metoprolol Tartrate (Lopressor) 50 mg PO BID [facility] Last Admin: 12/07/17 08:53 Dose: 50 mg Miscellaneous Information (Magnesium Per Protocol) 1 each MISCELLANE DAILY PRN ; Protocol PRN Reason: Per Protocol Miscellaneous Information (Phosphorus Per Protocol) 1 each MISCELLANE DAILY PRN ; Protocol PRN Reason: Per Protocol Miscellaneous Information (Potassium Per Protocol) 1 each MISCELLANE DAILY PRN ; Protocol PRN Reason: Per Protocol Ondansetron HCl (Zofran) 4 mg IVP Q6HR PRN PRN Reason: Nausea And Vomiting Pantoprazole Sodium (Protonix) 40 mg PO AC-BRKFST [facility] Last Admin: 12/07/17 08:53 Dose: 40 mg Senna/Docusate Sodium (Senokot-S) 2 each PO HS [facility] Last Admin: 12/06/17 20:29 Dose: 2 each Sodium Chloride (Saline Flush) 10 ml IV BID [facility] Last Admin: 12/07/17 10:48 Dose: 10 ml 12/07/2017 Underwent successful cardioversion this morning,360J X1, remains in sinus rhythm. Currently wearing BiPAP. Nonproductive cough. Diuresing well on Lasix and Zaroxolyn with 24-hour I&O reflecting a negative fluid balance. Chest x-ray reporting stable bilateral areas of infiltrate and pleural effusions , possible CHF, possible pneumonia. INR 3.8, afebrile, WBC 17. Maintained on Zosyn. Sternal wound drainage, cultures sent. 12/08/2017 Cardioverted yesterday, remains in sinus rhythm .continues requiring BiPAP for majority of morning. Echo reporting-limited study for assessment of pericardial effusion, small generalized pericardial effusion, low normal LV function, EF 50-55%. Chest CT reporting sternal dehiscence, moderate to large pericardial effusion, possible mass effect onto the left ventricle, no significant right atrial dilatation to clearly indicate tamponade, moderate left pleural effusion with adjacent complete left lower lobar and inferior lingular collapse, small right pleural effusion, right basilar subsegmental atelectasis. Chest x-ray noted. Blood sugars controlled. INR 4.8, received vitamin K this morning. Diuresing well on Lasix IV push, Zaroxolyn. 24-hour I& O reflecting a negative fluid balance, decreased weight. Midsternal incision open, draining large amount of serosanguineous drainage. Currently maintained on Zosyn. Wound cultures pending. Afebrile. Review systems unable to obtain as patient currently on BiPAP. Active Medications Generic Name Dose Route Start Last Admin Trade Name Freq PRN Reason Stop Dose Admin Hydrocodone Bitart/Acetaminophen 1 each 12/01/17 12:20 12/08/17 06:26 Udell 5-325 PO 1 each Q4HR PRN Administration MILD TO MODERATE Pain Hydrocodone Bitart/Acetaminophen 2 each 12/01/17 12:20 12/08/17 18:41 Udell 5-325 PO 2 each Q4HR PRN Administration MODERATE TO SEVERE Pain Acetazolamide Sodium 250 mg 12/08/17 09:15 12/08/17 11:16 Diamox IV 12/08/17 21:01 250 mg Q12HR [facility] Administration Albuterol/Ipratropium 3 ml 11/26/17 17:53 12/08/17 05:16 Duoneb 0.5 Mg-3 Mg/3 Ml Soln INHALATION 3 ml RT-Q2H PRN Administration Shortness Of Breath Or Wheezing Albuterol/Ipratropium 3 ml 12/03/17 08:00 12/08/17 15:38 Duoneb 0.5 Mg-3 Mg/3 Ml Soln INHALATION 3 ml RT-QID [facility] Administration Amiodarone HCl 200 mg 12/08/17 09:00 12/08/17 08:24 Cordarone PO 200 mg BID [facility] Administration Aspirin 81 mg 11/26/17 10:15 12/08/17 08:24 Aspirin PO 81 mg DAILY [facility] Administration Atorvastatin Calcium 40 mg 11/26/17 09:00 12/08/17 08:25 Lipitor PO 40 mg DAILY [facility] Administration Benzocaine/Menthol 1 each 11/25/17 19:03 Cepacol Lozenge MUCOUS MEM Q2H PRN Sore Throat Bisacodyl 10 mg 11/26/17 17:52 Dulcolax RECTAL DAILY PRN Constipation Budesonide 1 mg 12/01/17 20:00 12/08/17 09:26 Pulmicort INHALATION 1 mg RT-BID [facility] Administration Escitalopram Oxalate 10 mg 12/07/17 21:00 12/07/17 20:10 Lexapro PO 10 mg HS [facility] Administration Piperacillin/Tazobactam/ 50 mls @ 12.5 mls/hr 12/04/17 16:00 12/08/17 16:11 Dextrose 3.375 gm/ IV Solution IVPB 12.5 mls/hr Q8HR [facility] Administration Sodium Chloride 1,000 mls @ 20 mls/hr 12/06/17 10:45 12/08/17 13:47 Saline 0.9% IV Not Given .Q24H [facility] Insulin Aspart 0 unit 12/02/17 21:00 12/08/17 17:46 Novolog SQ 1 unit ACHS [facility] Administration Protocol Magnesium Hydroxide 2,400 mg 11/26/17 17:53 Milk Of Magnesia PO BID PRN Constipation Metoprolol Tartrate 50 mg 12/06/17 21:00 12/08/17 08:24 Lopressor PO 50 mg BID [facility] Administration Miscellaneous Information 1 each 11/25/17 19:03 Magnesium Per Protocol MISCELLANE DAILY PRN Per Protocol Protocol Miscellaneous Information 1 each 11/25/17 19:03 Phosphorus Per Protocol MISCELLANE DAILY PRN Per Protocol Protocol Miscellaneous Information 1 each 11/25/17 19:03 Potassium Per Protocol MISCELLANE DAILY PRN Per Protocol Protocol Ondansetron HCl 4 mg 11/25/17 19:03 Zofran IVP Q6HR PRN Nausea And Vomiting Pantoprazole Sodium 40 mg 12/05/17 07:30 12/08/17 08:25 Protonix PO 40 mg AC-BRKFST [facility] Administration Senna/Docusate Sodium 2 each 11/26/17 21:00 12/07/17 20:16 Senokot-S PO 2 each HS [facility] Administration Sodium Chloride 10 ml 11/25/17 21:00 12/08/17 11:16 Saline Flush IV 10 ml BID [facility] Administration 12/09/17 Remains in sinus rhythm. mostly BiPAP dependent. Incentive spirometer up to 700 -750. Chest x-ray reporting improving moderate pleural effusion, cardiomegaly. Sternal wound culture positive for gram-negative bacilli. Maintained on Zosyn. Diet intake fair. Blood sugars controlled. Review systems unable to be performed as patient on BiPAP Active Medications Hydrocodone Bitart/Acetaminophen (Udell 5-325) 1 each PO Q4HR PRN PRN Reason: MILD TO MODERATE Pain Last Admin: 12/09/17 10:03 Dose: 1 each Hydrocodone Bitart/Acetaminophen (Udell 5-325) 2 each PO Q4HR PRN PRN Reason: MODERATE TO SEVERE Pain Last Admin: 12/09/17 14:51 Dose: 2 each Albuterol/Ipratropium (Duoneb 0.5 Mg-3 Mg/3 Ml Soln) 3 ml INHALATION RT-Q2H PRN PRN Reason: Shortness Of Breath Or Wheezing Last Admin: 12/08/17 05:16 Dose: 3 ml Albuterol/Ipratropium (Duoneb 0.5 Mg-3 Mg/3 Ml Soln) 3 ml INHALATION RT-QID [facility] Last Admin: 12/09/17 15:42 Dose: 3 ml Amiodarone HCl (Cordarone) 200 mg PO BID [facility] Last Admin: 12/09/17 08:12 Dose: 200 mg Aspirin (Aspirin) 81 mg PO DAILY [facility] Last Admin: 12/09/17 08:13 Dose: 81 mg Atorvastatin Calcium (Lipitor) 40 mg PO DAILY [facility] Last Admin: 12/09/17 08:13 Dose: 40 mg Benzocaine/Menthol (Cepacol Lozenge) 1 each MUCOUS MEM Q2H PRN PRN Reason: Sore Throat Bisacodyl (Dulcolax) 10 mg RECTAL DAILY PRN PRN Reason: Constipation Budesonide (Pulmicort) 1 mg INHALATION RT-BID [facility] Last Admin: 12/09/17 07:45 Dose: 1 mg Escitalopram Oxalate (Lexapro) 10 mg PO HS [facility] Last Admin: 12/08/17 20:33 Dose: 10 mg Piperacillin/Tazobactam/ (Dextrose 3.375 gm/ IV Solution) 50 mls @ 12.5 mls/hr IVPB Q8HR [facility] Last Admin: 12/09/17 08:16 Dose: 12.5 mls/hr Sodium Chloride (Saline 0.9%) 1,000 mls @ 20 mls/hr IV .Q24H [facility] Last Admin: 12/09/17 08:17 Dose: 20 mls/hr Insulin Aspart (Novolog) 0 unit SQ ACHS [facility] PRN Reason: Protocol Last Admin: 12/09/17 12:23 Dose: Not Given Magnesium Hydroxide (Milk Of Magnesia) 2,400 mg PO BID PRN PRN Reason: Constipation Metoprolol Tartrate (Lopressor) 50 mg PO BID [facility] Last Admin: 12/09/17 08:13 Dose: 50 mg Miscellaneous Information (Magnesium Per Protocol) 1 each MISCELLANE DAILY PRN ; Protocol PRN Reason: Per Protocol Miscellaneous Information (Phosphorus Per Protocol) 1 each MISCELLANE DAILY PRN ; Protocol PRN Reason: Per Protocol Miscellaneous Information (Potassium Per Protocol) 1 each MISCELLANE DAILY PRN ; Protocol PRN Reason: Per Protocol Ondansetron HCl (Zofran) 4 mg IVP Q6HR PRN PRN Reason: Nausea And Vomiting Pantoprazole Sodium (Protonix) 40 mg PO AC-BRKFST [facility] Last Admin: 12/09/17 08:11 Dose: 40 mg Senna/Docusate Sodium (Senokot-S) 2 each PO HS [facility] Last Admin: 12/08/17 20:37 Dose: 2 each Sodium Chloride (Saline Flush) 10 ml IV BID [facility] Last Admin: 12/09/17 08:13 Dose: 10 ml 12/13/17 maintained on Merrem and vancomycin. BiPAP dependent. Worsening chest x-ray, chest CT reporting near complete collapse of left lung, enlarging moderate to large pericardial effusion. Echo pending. Multiple episodes of diarrhea. Atrial flutter with RVR, Review systems unable to be performed as patient on BiPAP Active Medications Generic Name Dose Route Start Last Admin Trade Name Freq PRN Reason Stop Dose Admin Hydrocodone Bitart/Acetaminophen 1 each 12/01/17 12:20 12/13/17 08:08 Udell 5-325 PO 1 each Q4HR PRN Administration MILD TO MODERATE Pain Hydrocodone Bitart/Acetaminophen 2 each 12/01/17 12:20 12/13/17 15:08 Udell 5-325 PO 2 each Q4HR PRN Administration MODERATE TO SEVERE Pain Albuterol/Ipratropium 3 ml 11/26/17 17:53 12/08/17 05:16 Duoneb 0.5 Mg-3 Mg/3 Ml Soln INHALATION 3 ml RT-Q2H PRN Administration Shortness Of Breath Or Wheezing Albuterol/Ipratropium 3 ml 12/03/17 08:00 12/13/17 16:02 Duoneb 0.5 Mg-3 Mg/3 Ml Soln INHALATION Not Given RT-QID [facility] Amiodarone HCl 200 mg 12/11/17 20:00 12/13/17 09:12 Cordarone PO 200 mg BID@0800,2000 [facility] Administration Aspirin 81 mg 11/26/17 10:15 12/13/17 09:13 Aspirin PO 81 mg DAILY [facility] Administration Atorvastatin Calcium 40 mg 11/26/17 09:00 12/13/17 09:13 Lipitor PO 40 mg DAILY [facility] Administration Benzocaine/Menthol 1 each 11/25/17 19:03 Cepacol Lozenge MUCOUS MEM Q2H PRN Sore Throat Bisacodyl 10 mg 11/26/17 17:52 12/12/17 17:45 Dulcolax RECTAL 10 mg DAILY PRN Administration Constipation Budesonide 1 mg 12/01/17 20:00 12/13/17 07:46 Pulmicort INHALATION 1 mg RT-BID [facility] Administration Escitalopram Oxalate 10 mg 12/07/17 21:00 12/12/17 20:16 Lexapro PO 10 mg HS [facility] Administration Heparin Sodium (Porcine) 5,000 unit 12/10/17 16:00 12/13/17 09:14 Heparin SQ 5,000 unit Q8HR [facility] Administration Sodium Chloride 1,000 mls @ 20 mls/hr 12/06/17 10:45 12/13/17 09:49 Saline 0.9% IV 20 mls/hr .Q24H [facility] Administration Meropenem 1 gm/ Sodium 100 mls @ 100 mls/hr 12/09/17 22:00 12/13/17 09:46 Chloride IVPB 100 mls/hr Q8HR [facility] Administration Vancomycin HCl 1,750 mg/ 250 mls @ 125 mls/hr 12/13/17 14:00 12/13/17 14:15 Sodium Chloride IVPB 125 mls/hr Q12HR@0000,1200 [facility] Administration Insulin Aspart 0 unit 12/02/17 21:00 12/13/17 12:34 Novolog SQ Not Given ACHS [facility] Protocol Lactobacillus Acidoph/Bulgaricus 1 each 12/13/17 16:00 Lactinex PO TID [facility] Magnesium Hydroxide 2,400 mg 11/26/17 17:53 Milk Of Magnesia PO BID PRN Constipation Metoprolol Tartrate 50 mg 12/11/17 22:00 12/13/17 09:13 Lopressor PO 50 mg BID@1000,2200 [facility] Administration Miscellaneous Information 1 each 11/25/17 19:03 Magnesium Per Protocol MISCELLANE DAILY PRN Per Protocol Protocol Miscellaneous Information 1 each 11/25/17 19:03 Phosphorus Per Protocol MISCELLANE DAILY PRN Per Protocol Protocol Miscellaneous Information 1 each 11/25/17 19:03 Potassium Per Protocol MISCELLANE DAILY PRN Per Protocol Protocol Ondansetron HCl 4 mg 11/25/17 19:03 Zofran IVP Q6HR PRN Nausea And Vomiting Pantoprazole Sodium 40 mg 12/05/17 07:30 12/13/17 09:13 Protonix PO 40 mg AC-BRKFST [facility] Administration Senna/Docusate Sodium 2 each 11/26/17 21:00 12/12/17 20:16 Senokot-S PO 2 each HS [facility] Administration Sodium Chloride 10 ml 11/25/17 21:00 12/13/17 09:49 Saline Flush IV 10 ml BID [facility] Administration 12/14/17 maintained on Merrem and vancomycin per infectious disease .remains BiPAP dependent. Chest x-ray reporting persistent significant left lung collapse with minimal improvement. Scheduled for bronchoscopy this afternoon. INR 2.1, receiving FFP. No diarrhea today. Telemetry atrial fibrillation/ flutter, heart rate 110s to 120s. 12/15/2017 developed worsened respiratory distress despite BiPAP, diuretics, antiarrhythmics, intubated last night. Received 2 more units of FFP this morning, underwent bronchoscopy this morning; mucous plug discovered in the left lower lobe. Pleural Cultures pending. Maintained on FiO2 45%/+5 of PEEP. Continues on IV antibiotics. Currently on 2-1/2 mics of Levophed and diprovan drips. Atrial tachycardia, heart rate in the 130s. Amiodarone discontinued as per cardiology. Developed increased bleeding from wound VAC with turning during bath-Anticoagulation placed on hold. Afebrile. 12/16/17 remains vent dependent, FiO2 40%/+5 of PEEP. Sedated on Diprovan. Requiring low-dose of Levophed. Marginal urine output, received albumin last night. Tachycardia resolved, sinus rhythm per telemetry. Wound VAC dressing changed today, serosanguineous drainage. Bronchoscopy yesterday, cultures pending. Blood sugars controlled. 12/17/2017 today weaning trials of pressure support in increments of 3 hours , resting at night, FiO2 40%/+5 of PEEP. Chest x-ray reporting improvement. Currently on Levophed. Tolerating tube feeds at goal with minimal to no residual. Maintained on IV antibiotics as per infectious disease. Telemetry sinus rhythm. 12/20/17 remains vent dependent FiO2 40%/PEEP of 5. Yesterday vent weaning during the day hours, tolerated well. Wound VAC changed yesterday. Scheduled for sternal flap repair tomorrow. Maintained on IV antibiotics. T-max 99.4. Last night returned into rapid atrial flutter, Currently sinus rhythm. 12/21/2017 remains vent dependent. Telemetry sinus rhythm. Tube feeds on hold. Scheduled for sternal flap repair today. 12/22/2017 underwent flap repair/grafting yesterday with plastic surgeon. Pain controlled. Extubated this morning, maintained on BiPAP. Telemetry sinus rhythm. Albumin remains at 2.2, receiving albumin. 12/23/17 .Patient respiratory arrested while Dobbhoff attempting to be placed, returned into atrial fibrillation with RVR. Reintubated, converted back into sinus rhythm. Midsternal dressing being changed at bedside by cardiothoracic surgery. Trach and PEG being discussed as per pulmonary. Objective - Vital Signs Vital signs: Vital Signs Temp 99.1 F 12/23/17 12:00 Pulse 88 12/23/17 16:25 Resp 20 12/23/17 16:25 BP 116/54 12/19/17 10:00 Pulse Ox 99 12/23/17 15:30 Intake & Output 12/22/17 12/23/17 12/23/17 18:59 06:59 18:59 Intake Total 829 533 504 Output Total 2156 770 915 Balance -1266 -237 -411 Weight 111.5 kg 111.5 kg Intake: IV 589 533 504 ACETAMINOPHEN IV (For NPO 200 ) 1,000 mg In Empty Bag 1 bag @ 400 mls/hr IVPB Q6H [facility] Rx#:[id number] Dextrose 5%-0.45% NaCl 1, 280 000 ml @ 40 mls/hr IV . Q24H [facility] Rx#:[id number] Fluconazole in NaCl,Iso- 100 100 Osm 200 mg In Saline 1 100ml.bag @ 100 mls/hr IVPB DAILY [facility] Rx#: [id number] Meropenem 1 gm In Sodium 100 100 Chloride 0.9% 100 ml @ 100 mls/hr IVPB Q8HR [facility] Rx#:[id number] Pressure Bag 39 33 24 Sodium Chloride 0.9% 1, 200 200 000 ml @ 20 mls/hr IV . Q24H [facility] Rx#:[id number] Vancomycin 1,500 mg In 250 Sodium Chloride 0.9% 250 ml @ 125 mls/hr IVPB Q24H [facility] Rx#:[id number] Tube Feeding 180 Other 60 Output: Drainage 590 450 730 Medial Abdomen 510 170 650 Right Abdomen 80 280 80 Urine 1505 320 185 Other: Voiding Method Indwelling Catheter Indwelling Catheter Indwelling Catheter ABP, PAP, CO, CI - Last Documented Arterial Blood Pressure 95/56 Pulmonary Artery Pressure 38/33 Cardiac Output 5.8 Cardiac Index 2.9 - Exam PHYSICAL EXAM: VITAL SIGNS: As above GENERAL: Sitting up in bed, on mechanical ventilation HEENT: Conjunctivae normal. eyes normal. NECK: No JVD. No thyroid enlargement. CARDIOVASCULAR: S1, S2 muffled , positive systolic murmur. RESPIRATION: Breath sounds diminished in the bases,coarse. Occasional scattered fine crackles. No wheezes. Sternal wound dressing present. ABDOMEN: Soft . No guarding. no masses palpable.Bowel sounds heard. Extremities: Positive mild edema PSYCHIATRY:/NERVOUS SYSTEM: Unable to assess as patient on mechanical ventilation Skin: Midsternal dressing clean dry and intact, previously:right medial buttock & right buttock skin tears, type II - III, Right lower arm Skin tear,type II, Lower back shearing injury with sloughing-unable to examine backside at this time. Microbiology 12/15/17 10:40 Bronchial Washings - Left Gram Stain - Final 12/15/17 10:40 Bronchial Washings - Left Bronchial Washings Culture - Final Rachana albicans 12/14/17 21:30 Sputum Gram Stain - Final 12/14/17 21:30 Sputum Sputum Culture - Final Rachana albicans 12/15/17 10:40 Bronchial Washings - Left Acid Fast Bacilli Smear - Final 12/15/17 10:40 Bronchial Washings - Left Acid Fast Bacilli Culture - Preliminary 12/15/17 10:40 Bronchial Washings - Left Fungal Culture - Preliminary 12/10/17 10:50 Chest Anaerobic Culture - Final 12/10/17 10:40 Chest Anaerobic Culture - Final 12/10/17 10:45 Chest Anaerobic Culture - Final 12/13/17 05:27 Urine,Catheterized Urine Culture - Final 12/10/17 10:40 Chest Gram Stain - Final 12/10/17 10:40 Chest Wound Culture - Final Serratia marcescens 12/10/17 10:45 Chest Gram Stain - Final 12/10/17 10:45 Chest Tissue Culture - Final Serratia marcescens 12/10/17 10:50 Chest Gram Stain - Final 12/10/17 10:50 Chest Tissue Culture - Final Serratia marcescens 12/10/17 10:50 Chest Acid Fast Bacilli Smear - Final 12/10/17 10:50 Chest Acid Fast Bacilli Culture - Preliminary 12/10/17 10:45 Chest Acid Fast Bacilli Smear - Final 12/10/17 10:45 Chest Acid Fast Bacilli Culture - Preliminary 12/10/17 10:50 Chest Fungal Culture - Preliminary 12/10/17 10:40 Chest Fungal Culture - Preliminary 12/10/17 10:45 Chest Fungal Culture - Preliminary 12/07/17 15:40 Chest Gram Stain - Final 12/07/17 15:40 Chest Wound Culture - Final Serratia marcescens 12/04/17 10:00 Urine,Voided Urine Culture - Final Escherichia coli Serratia marcescens 11/26/17 04:00 Sputum Gram Stain - Final 11/26/17 04:00 Sputum Sputum Culture - Final - Labs CBC & Chem 7: 12/23/17 05:05 12/23/17 05:05 Labs: Abnormal Lab Results - Last 24 Hours (Table) 12/23/17 12/23/17 12/23/17 Range/Units 05:05 05:05 15:32 WBC 17.0 H (3.8-10.6) k/uL RBC 2.96 L (3.80-5.40) m/uL Hgb 7.7 L (11.4-16.0) gm/dL Hct 26.5 L (34.0-46.0) % MCHC 29.2 L (31.0-37.0) g/dL RDW 19.8 H (11.5-15.5) % Neutrophils # 15.4 H (1.3-7.7) k/uL Lymphocytes # 0.6 L (1.0-4.8) k/uL ABG pH 7.28 L (7.35-7.45) ABG pCO2 62 H (35-45) mmHg ABG pO2 321 H (83-108) mmHg ABG HCO3 29 H (21-25) mmol/L ABG Total CO2 31 H (19-24) mmol/L ABG O2 Saturation 100.0 H (94-97) % Carbon Dioxide 33 H (22-30) mmol/L BUN 33 H (7-17) mg/dL Creatinine 0.50 L (0.52-1.04) mg/dL AST 78 H (14-36) U/L Total Protein 5.9 L (6.3-8.2) g/dL Albumin 2.6 L (3.5-5.0) g/dL Assessment and Plan Assessment: 1. Status post CABG with mitral valve replacement 2. Acute blood loss anemia with massive blood transfusions postoperatively, in a patient with history of GI bleed 3. Hypertension 4. Left subclavian stenosis 5. Proximal atrial fibrillation/flutter status post cardioversion with recurrence of atrial fibrillation 6. Acute Hypoxic respiratory failure, Re intubated x2. 7. Obesity, BMI 41.6 8. S/P PICC line placement 9. 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 Acute UTI Serratia marcescens, E. coli 11. Bilateral pleural effusions, improved with diuretics. Possible aspiration pneumonia, possible fluid overload. 12. Sternal wound debridement, culture growing Serratia marcescens, status post wound VAC. Status post sternal flap grafting. 13. Pressure ulceration of back and buttocks, stage III 14. Diarrhea, ruling out C. difficile colitis. 15. Status post bronchoscopy with left lower lobe mucous plug discovered, cultures pending Plan: Continue on current medication regime , amiodarone, metoprolol , monitoring and symptomatic treatment. Trach and PEG currently being discussed as per pulmonary. Maintain IV antibiotics, nebulized bronchodilators, steroids. Prognosis guarded given multiple complex medical issues. The impression and plan of care has been dictated as directed. : I performed a history and examination of this patient, discussed the same with the dictator. I agree with the dictator's note ,documented as a scribe. Any additional findings or plans will be noted.
[2017-12-23 19:22] LABS: Glucose,Whole Blood 83 mg/dL (75-99)
[2017-12-23] MEDS: ALBUMIN HUMAN 5% 250 ML IVPB ONE ×2 (19:39→22:59)
[2017-12-23] MEDS: ESCITALOPRAM 10 MG TAB PO SCH (21:33)
[2017-12-23] MEDS: SENNOSIDES-DOCUSATE SODIUM 1 EACH TAB PO SCH (21:36)
[2017-12-23] MEDS ORDERED: ALBUMIN HUMAN 25% 50 ML in EMPTY BAG 1 BAG IVPB ONE (22:31)
--- NOTE | 2017-12-23 23:25 | P.PN ---
Subjective Progress Note Date: 12/23/17 Principal diagnosis: Sternal wound dehiscence Pleasant 67-year-old female who has an extensive past medical history who is now 14 days postoperative from her open heart procedure it which point in time a mitral valve placement occurred, reverse saphenous vein coronary artery bypass grafting 1 to obtuse marginal, Maze procedure and ligation of the left atrial appendage all occurred interoperatively left ventricular wall tear occurred and was repaired. The patient has a known history of multiple medical troubles before her surgery that included her obesity, COPD and marked deconditioning. Patient has had difficulties recently that included urinary tract infection with E. coli and Serratia and has been treated with intravenous antibiotic therapy with Zosyn. She was having some improvement but then developed dehiscence of her sternal wound and there are plans for surgical debridement tomorrow wound culture showing gram-negative bacilli and with at the infectious diseases consultation was requested. The patient continues to have significant respiratory difficulties and is currently on BiPAP for support. Postoperatively the patient was hemodynamically unstable which made even turning of the patient not possible which has resulted in unavoidable areas of skin breakdown, that are now treatable given her improvement 12/10/2017 reveals the patient to be postoperative from the sternal wound debridement. The surgical note as well as discussion with the surgical team reveals evidence of poor bone quality and all of the sternal wires had pulled through her bony areas. Negative pressure therapy is in place. She is tolerating this well. Plastic surgery consult has been requested for reconstruction of her chest in the near future. Gram-negative bacilli growing from the sternal wound. She is quite comfortable after procedure, chest tube was placed of the left cavity and this is improved some left lung function and she seems less short of breath. The daughter is present and her questions were answered. 12/11/2017 reveals the patient to have had some respiratory distress today and is back on BiPAP at this time. She relates that her pain is under much significant control. Been no other new acute complaints are being made. 12/13/2017 the patient remains in the ICU she is currently on BiPAP but relates that she is quite comfortable. We will work with the nursing staff to change her VAC dressing at this time. await the plastic surgery timeline. 12/15/2017 reveals the patient to remain in intensive care unit, her status has worsened and that she developed flash pulmonary edema and respiratory failure requiring reintubation sedation mechanical ventilation. She underwent bronchoscopy today for removal of mucous plugs and to help with the collapsed left lower lobe. The patient has require some vasopressor support but is more stable this afternoon than earlier. She is sedated and comfortable. She has significant decline of hemoglobin is 7.6. Anticoagulation was held. Is being closely monitored by surgery and they await the plastic surgery intervention. 12/16/2017 cases briefly discussed with the cardiothoracic nurse practitioner in that the wound VAC is being changed today. It is unchanged with no difficulties. No further bleeding is noted. Plastic surgery evaluation apparently will occur tomorrow so the surgical plan can be devised. 12/20/2017 since last visit current thoracic has again change the wound VAC without difficulties. She tolerated it well. She remains on the ventilator at this point in time, does not appear to have any plans for weaning because she will have her plastic closure over open chest tomorrow. She's been hemodynamically stable with intermittent atrial flutter. No significant changes of oxygen requirements, drainage from the wound VAC is minimal as is drainage from her chest tube. 12/21/2017 patient is status post the partial plastic closure of her sternal wound. Complete cardiac coverage occurred but only partial closure was possible. Oxygen requirements are improving postoperative and is being closely watched for any further blood loss anemia. 12/23/2017 reveals the patient to be extubated on BiPAP. She is comfortable with her pain level is about a 2. Shortness of breath is not severe. She is unable to eat and a Dobbhoff will be placed a bit later today to help her with nutritional status to help her recovery. The current situation is discussed with the cardiothoracic surgeon team Objective - Vital Signs Vital signs: Vital Signs Temp 98.4 F 12/23/17 20:00 Pulse 90 12/23/17 23:14 Resp 20 12/23/17 23:00 BP 116/54 12/19/17 10:00 Pulse Ox 99 12/23/17 23:00 Intake & Output 12/23/17 12/23/17 12/24/17 06:59 18:59 06:59 Intake Total 533 953 517.442 Output Total 770 1250 445 Balance -237 -297 72.442 Weight 111.5 kg 111.5 kg Intake: IV 533 883 215 ACETAMINOPHEN IV (For NPO 200 ) 1,000 mg In Empty Bag 1 bag @ 400 mls/hr IVPB Q6H [facility] Rx#:[id number] Albumin Human 5% 250 ml 250 As IVPB .STK-MED ONE Rx#: [id number] Dextrose 5%-0.45% NaCl 1, 400 200 000 ml @ 40 mls/hr IV . Q24H [facility] Rx#:[id number] Fluconazole in NaCl,Iso- 100 Osm 200 mg In Saline 1 100ml.bag @ 100 mls/hr IVPB DAILY [facility] Rx#: [id number] Meropenem 1 gm In Sodium 100 100 Chloride 0.9% 100 ml @ 100 mls/hr IVPB Q8HR [facility] Rx#:[id number] Pressure Bag 33 33 15 Sodium Chloride 0.9% 1, 200 000 ml @ 20 mls/hr IV . Q24H [facility] Rx#:[id number] Intake, IV Titration 62.442 Amount Norepinephrin 16 mg-0.9% 0.375 Ns Pmx 16 mg In 250 ml @ Titrate IV .Q0M [facility] Rx#: [id number] Propofol 1,000 mg In 62.067 Empty Bag 1 bag @ Titrate IV .Q0M [facility] Rx#: [id number] Tube Feeding 70 240 Output: Drainage 450 1020 380 Medial Abdomen 170 900 300 Right Abdomen 280 120 80 Urine 320 230 65 Other: Voiding Method Indwelling Catheter Indwelling Catheter Indwelling Catheter ABP, PAP, CO, CI - Last Documented Arterial Blood Pressure 102/50 Pulmonary Artery Pressure 38/33 Cardiac Output 5.8 Cardiac Index 2.9 - Exam Obese 67-year-old woman who is now extubated on BiPAP HEENT: Anicteric conjunctiva are pink and moist nasal mucosa grossly intact without significant lesions, there is no thrush. Oral mucosa is dry but no swapnil lesions could be seen Neck: The neck is supple without significant lymphadenopathy or thyromegaly. Lungs: Symmetrical air entry is noted. There is scattered crackles but no swapnil bronchial sounds Heart: Irregular with an audible S1 and S2 soft S4 no audible murmur no click or rub Chest: The patient's mid sternotomy incision is now covered with a postoperative dressing from the plastic closure which is reported to be a partial flap closure Abdomen: Obese, Positive bowel sounds soft and nontender without palpable masses or organomegaly. There was no guarding or rebound. Extremities: The upper and lower extremities have evidence of edema harvest site is intact there is some bruising that is noted especially on the left groin area. IV sites are intact. Skin: There are no new lesions that are seen Neuro: No longer sedated able to answer simple questions seems modestly comfortable pain level of 2 - Labs CBC & Chem 7: 12/23/17 05:05 12/23/17 05:05 Labs: Abnormal Lab Results - Last 24 Hours (Table) 12/23/17 12/23/17 12/23/17 Range/Units 05:05 05:05 15:32 WBC 17.0 H (3.8-10.6) k/uL RBC 2.96 L (3.80-5.40) m/uL Hgb 7.7 L (11.4-16.0) gm/dL Hct 26.5 L (34.0-46.0) % MCHC 29.2 L (31.0-37.0) g/dL RDW 19.8 H (11.5-15.5) % Neutrophils # 15.4 H (1.3-7.7) k/uL Lymphocytes # 0.6 L (1.0-4.8) k/uL ABG pH 7.28 L (7.35-7.45) ABG pCO2 62 H (35-45) mmHg ABG pO2 321 H (83-108) mmHg ABG HCO3 29 H (21-25) mmol/L ABG Total CO2 31 H (19-24) mmol/L ABG O2 Saturation 100.0 H (94-97) % Carbon Dioxide 33 H (22-30) mmol/L BUN 33 H (7-17) mg/dL Creatinine 0.50 L (0.52-1.04) mg/dL AST 78 H (14-36) U/L Total Protein 5.9 L (6.3-8.2) g/dL Albumin 2.6 L (3.5-5.0) g/dL Laboratory Results WBC 17.0 k/uL (3.8-10.6) H 12/23/17 05:05 RBC 2.96 m/uL (3.80-5.40) L 12/23/17 05:05 Hgb 7.7 gm/dL (11.4-16.0) L 12/23/17 05:05 Hct 26.5 % (34.0-46.0) L 12/23/17 05:05 MCV 89.3 fL (80.0-100.0) 12/23/17 05:05 MCH 26.1 pg (25.0-35.0) 12/23/17 05:05 MCHC 29.2 g/dL (31.0-37.0) L 12/23/17 05:05 RDW 19.8 % (11.5-15.5) H 12/23/17 05:05 Plt Count 241 k/uL (150-450) 12/23/17 05:05 Neutrophils % 90 % 12/23/17 05:05 Neutrophils % (Manual) 98 % 12/05/17 04:25 Lymphocytes % 4 % 12/23/17 05:05 Lymphocytes % (Manual) 1 % 12/05/17 04:25 Monocytes % 4 % 12/23/17 05:05 Monocytes % (Manual) 1 % 12/05/17 04:25 Eosinophils % 1 % 12/23/17 05:05 Basophils % 0 % 12/23/17 05:05 Myelocytes % 1 % 12/03/17 04:15 Neutrophils # 15.4 k/uL (1.3-7.7) H 12/23/17 05:05 Neutrophils # (Manual) 26.95 k/uL (1.3-7.7) H 12/05/17 04:25 Lymphocytes # 0.6 k/uL (1.0-4.8) L 12/23/17 05:05 Lymphocytes # (Manual) 0.28 k/uL (1.0-4.8) L 12/05/17 04:25 Monocytes # 0.7 k/uL (0-1.0) 12/23/17 05:05 Monocytes # (Manual) 0.28 k/uL (0-1.0) 12/05/17 04:25 Eosinophils # 0.2 k/uL (0-0.7) 12/23/17 05:05 Basophils # 0.0 k/uL (0-0.2) 12/23/17 05:05 Myelocytes # (Manual) 0.17 k/uL (0) H 12/03/17 04:15 Nucleated RBCs 0 /100 WBC (0-0) 12/05/17 04:25 Manual Slide Review Performed 12/05/17 04:25 Polychromasia Present 12/03/17 04:15 Hypochromasia Marked 12/23/17 05:05 Poikilocytosis Slight 12/23/17 05:05 Anisocytosis Slight 12/23/17 05:05 Microcytosis Slight 12/17/17 04:45 Target Cells Present 12/03/17 04:15 PT 10.8 sec (9.0-12.0) 12/21/17 04:50 INR 1.1 (<1.2) 12/21/17 04:50 APTT 23.9 sec (22.0-30.0) 12/21/17 04:50 Fibrinogen 334 mg/dL (200-500) 11/26/17 04:22 Sample Site kamilah 12/23/17 15:32 ABG pH 7.28 (7.35-7.45) L 12/23/17 15:32 ABG pCO2 62 mmHg (35-45) H 12/23/17 15:32 ABG pO2 321 mmHg (83-108) H 12/23/17 15:32 ABG HCO3 29 mmol/L (21-25) H 12/23/17 15:32 ABG Total CO2 31 mmol/L (19-24) H 12/23/17 15:32 ABG O2 Saturation 100.0 % (94-97) H 12/23/17 15:32 ABG Base Excess 2.1 mmol/L 12/23/17 15:32 ABG Hematocrit 24 % (34.0-46.0) L 11/25/17 17:37 Robbi Test Yes 12/23/17 15:32 ABG Sodium 144 mmol/L (135-146) 11/25/17 17:37 ABG Potassium 3.8 mmol/L (3.4-4.5) 11/25/17 17:37 ABG Ionized Calcium 4.0 mg/dL (4.5-5.3) L 11/25/17 17:37 ABG Glucose 139 mg/dL (75-99) H 11/25/17 17:37 ABG Lactic Acid 2.8 mmol/L (0.5-1.6) H* 11/25/17 17:37 Hemoglobin 7.8 gm/dL (11.4-16.0) L 11/25/17 17:37 FiO2 100 % 12/23/17 15:32 Sodium 145 mmol/L (137-145) 12/23/17 05:05 Potassium 4.1 mmol/L (3.5-5.1) 12/23/17 05:05 Chloride 103 mmol/L (98-107) 12/23/17 05:05 Carbon Dioxide 33 mmol/L (22-30) H 12/23/17 05:05 Anion Gap 9 mmol/L 12/23/17 05:05 BUN 33 mg/dL (7-17) H 12/23/17 05:05 Creatinine 0.50 mg/dL (0.52-1.04) L 12/23/17 05:05 Est GFR (MDRD) Af Amer >60 (>60 ml/min/1.73 sqM) 12/07/17 04:00 Est GFR (MDRD) Non-Af >60 (>60 ml/min/1.73 sqM) 12/07/17 04:00 Est GFR (CKD-EPI)AfAm >90 (>60 ml/min/1.73 sqM) 12/23/17 05:05 Est GFR (CKD-EPI)NonAf >90 (>60 ml/min/1.73 sqM) 12/23/17 05:05 Glucose 78 mg/dL (74-99) 12/23/17 05:05 POC Glucose (mg/dL) 83 mg/dL (75-99) 12/23/17 19:21 POC Glu [employer] ID Tosha Delarosa 12/23/17 19:21 Calcium 8.8 mg/dL (8.4-10.2) 12/23/17 05:05 Ionized Calcium Bruce 4.7 mg/dL (4.5-5.3) 12/11/17 15:45 Phosphorus 3.6 mg/dL (2.5-4.5) 12/23/17 05:05 Magnesium 2.3 mg/dL (1.6-2.3) 12/23/17 05:05 Total Bilirubin 0.7 mg/dL (0.2-1.3) 12/23/17 05:05 AST 78 U/L (14-36) H 12/23/17 05:05 ALT 44 U/L (9-52) 12/23/17 05:05 Alkaline Phosphatase 121 U/L (38-126) 12/23/17 05:05 Total Protein 5.9 g/dL (6.3-8.2) L 12/23/17 05:05 Albumin 2.6 g/dL (3.5-5.0) L 12/23/17 05:05 Arterial Blood Potassium 3.8 mmol/L (3.4-4.5) 11/25/17 17:37 Arterial Blood Glucose 139 mg/dL (75-99) H 11/25/17 17:37 Urine Color Yellow 12/04/17 10:00 Urine Appearance Cloudy (Clear) H 12/04/17 10:00 Urine pH 5.5 (5.0-8.0) 12/04/17 10:00 Ur Specific [facility] 1.015 (1.001-1.035) 12/04/17 10:00 Urine Protein Trace (Negative) H 12/04/17 10:00 Urine Glucose (UA) Negative (Negative) 12/04/17 10:00 Urine Ketones Negative (Negative) 12/04/17 10:00 Urine Blood Negative (Negative) 12/04/17 10:00 Urine Nitrite Negative (Negative) 12/04/17 10:00 Urine Bilirubin Negative (Negative) 12/04/17 10:00 Urine Urobilinogen <2.0 mg/dL (<2.0) 12/04/17 10:00 Ur Leukocyte Esterase Negative (Negative) 12/04/17 10:00 Urine RBC 7 /hpf (0-5) H 12/04/17 10:00 Urine WBC 1 /hpf (0-5) 12/04/17 10:00 Ur Squamous Epith Cells 8 /hpf (0-4) H 12/04/17 10:00 Urine Bacteria Occasional /hpf (None) H 12/04/17 10:00 Urine Mucus Rare /hpf (None) H 12/04/17 10:00 Fluid Source Bronchial Wash 12/15/17 10:40 Fluid Color Colorless 12/15/17 10:40 Fluid Appearance Cloudy 12/15/17 10:40 Fluid RBC 150 /uL 12/15/17 10:40 Fluid Nucleated Cells 6900 /uL 12/15/17 10:40 Fluid Polynuclear WBCs 95 % 12/15/17 10:40 Fluid Mononuclear WBCs 5 % 12/15/17 10:40 Vancomycin Trough 17.3 ug/mL 12/22/17 11:45 Random Vancomycin 21.2 ug/mL 12/16/17 04:15 Heparin-Ind Plt Ab Scrn 0.231 OD (<0.4) 11/29/17 04:50 Virus Source See Below 12/15/17 10:40 Viral Test See Below 12/15/17 10:40 Virus Analysis Interp See Below 12/15/17 10:40 Blood Type A Positive 12/21/17 11:28 Blood Type Recheck No 12/21/17 11:28 Antibody Screen NEGATIVE 12/21/17 11:28 Crossmatch See Detail 12/14/17 10:10 Transfuse Cryo 222101111/26/17 00:39 Transfuse Plasma 12/15/2017 12/15/17 05:51 Transfuse Platelets 222101111/25/17 14:55 Spec Expiration Date 12/24/2017 - 232712/21/17 11:28 Microbiology 12/10/17 10:50 Chest Acid Fast Bacilli Smear - Final 12/10/17 10:50 Chest Acid Fast Bacilli Culture - Preliminary 12/10/17 10:45 Chest Acid Fast Bacilli Smear - Final 12/10/17 10:45 Chest Acid Fast Bacilli Culture - Preliminary 12/15/17 10:40 Bronchial Washings - Left Fungal Culture - Preliminary Rachana albicans 12/10/17 10:40 Chest Fungal Culture - Preliminary 12/10/17 10:45 Chest Fungal Culture - Preliminary 12/10/17 10:50 Chest Fungal Culture - Preliminary 12/15/17 10:40 Bronchial Washings - Left Gram Stain - Final 12/15/17 10:40 Bronchial Washings - Left Bronchial Washings Culture - Final Rachana albicans 12/14/17 21:30 Sputum Gram Stain - Final 12/14/17 21:30 Sputum Sputum Culture - Final Rachana albicans 12/15/17 10:40 Bronchial Washings - Left Acid Fast Bacilli Smear - Final 12/15/17 10:40 Bronchial Washings - Left Acid Fast Bacilli Culture - Preliminary 12/10/17 10:50 Chest Anaerobic Culture - Final 12/10/17 10:40 Chest Anaerobic Culture - Final 12/10/17 10:45 Chest Anaerobic Culture - Final 12/13/17 05:27 Urine,Catheterized Urine Culture - Final 12/10/17 10:40 Chest Gram Stain - Final 12/10/17 10:40 Chest Wound Culture - Final Serratia marcescens 12/10/17 10:45 Chest Gram Stain - Final 12/10/17 10:45 Chest Tissue Culture - Final Serratia marcescens 12/10/17 10:50 Chest Gram Stain - Final 12/10/17 10:50 Chest Tissue Culture - Final Serratia marcescens 12/07/17 15:40 Chest Gram Stain - Final 12/07/17 15:40 Chest Wound Culture - Final Serratia marcescens 12/04/17 10:00 Urine,Voided Urine Culture - Final Escherichia coli Serratia marcescens 11/26/17 04:00 Sputum Gram Stain - Final 11/26/17 04:00 Sputum Sputum Culture - Final Assessment and Plan (1) Severe mitral regurgitation Current Visit: Yes Status: Chronic Code(s): I34.0 - NONRHEUMATIC MITRAL ( VALVE) INSUFFICIENCY SNOMED Code(s): 11463541 (2) CAD (coronary artery disease) Current Visit: Yes Status: Chronic Code(s): I25.10 - ATHSCL HEART DISEASE OF [place] CORONARY ARTERY W/O ANG PCTRS SNOMED Code(s): 56387147 (3) Acute blood loss as cause of postoperative anemia Current Visit: Yes Status: Acute Code(s): D62 - ACUTE POSTHEMORRHAGIC ANEMIA SNOMED Code(s): 28307043630150010 (4) Pressure ulcer of contiguous region involving back and buttock, stage 3 Current Visit: Yes Status: Acute Code(s): L89.43 - PRESSR ULCER OF CONTIG SITE OF BACK, BUTTOCK AND HIP, STG 3 SNOMED Code(s): 495333030 (5) Sternal wound dehiscence Narrative/Plan: 67-year-old woman presents to Hospital for treatment of her severe mitral irritation. Underwent mitral valve replacement, coronary artery bypass grafting 1, Maze procedure and clipping of the left atrial appendage with a complication of the left ventricular wall tear. The patient has had a very protracted recovery she is now day 14 post operative and is still having difficulty with her respiratory status requiring BiPAP. The patient's nutritional status and underlying comorbidities have complicated her care. She now has evidence of the sternal dehiscence with evidence of gram negatives bacilli being found at the site. There is evidence of urinary tract infection with E. coli and Serratia. This Serratia species is somewhat resistant and consequently we'll alter the current antimicrobial therapy from Zosyn to meropenem to ensure coverage for other potential pathogens that are resistant that could be in the sternal wound while we await cultures. The patient will be going to the operating room tomorrow for debridement and wound VAC placement. The cultures were further direct the overall course of antibiotics. Urinary infection appears to be doing somewhat better. The patient fortunately is comfortable and doing well with her BiPAP. 12/10/2017 the patient is status post surgery and actually is feeling a bit better this afternoon than yesterday. Her pain is quite well controlled. She is not on BiPAP. She is less short of breath. Wound culture has verified the Serratia marcescens to the sternal wound. We'll constantly continue the current course of meropenem due to some of the resistance patterns or seeing with the species. Continue local care at this point time with the negative pressure system to the sternal wound. The plastic surgery consult is being requested for reconstruction of her chest. She will require a course of intravenous antibiotic therapy given her complex infection. Dual-lumen PICC is already in place. We'll repeat the discharge planners as to her place of rehab. 12/11/2017 the patient is metabolically stable but is having difficulties with her respiratory status and is now back on BiPAP which has been intermittent over the last multiple days. Negative pressure therapy remains intact and the sternum and we await the plastic surgery intervention. 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 Continue supportive care, and nutritional supplements as possible to improve for tissue healing. 12/13/2017 patient is on BiPAP. She is comfortable at this time. Receiving her intravenous antibiotic therapy without difficulties. At this time the surgeon present in a sterile fashion the wound VAC is removed. Surgeon evaluates and then the wound VAC is reapplied with 2 of the white foam, periwound protected with DuoDERM no difficulty with the seal. Merrem continues. 12/15/2017 the patient has had marked worsening of her status in that she had respiratory failure requiring reintubation and mechanical ventilation. She is now sedated and comfortable but has had some hemodynamic instability and is now back on vasopressor therapy. Bronchoscopy is performed and suctioning of mucous plugs as allowed some improvement of her pulmonary status. Further cultures are process. Meropenem and vancomycin continue for the isolated Serratia and concerns for resistant gram-positive infection at this time. Plastic surgery evaluation is in process and surgical plans for later this week appear to be possible. 12/16/2017 reveals the patient to be stable from the last 24 hours. Her ventilatory settings are similar. She's currently not on vasopressor therapy. She is tolerating current antibiotic therapy well with no difficulties with rash and diarrhea or marked changes of her hematological parameters. She's had no further active bleeding. Sputum culture with gram-positive cocci seen vancomycin was added we await final cultures. 12/20/2017 patient remained stable and is being prepped for her sternal reconstruction surgery tomorrow. She's not on vasopressor therapy, and vent settings are stable. Most recent bronchoscopy showed mucous plug no evidence of any new pathogens except yeast was found likely from upper airways. Fluconazole was added given her significant risks, although fungal pneumonia is not occurring at this time. At the time of reconstruction repeat samplings from her sternum will be helpful to help direct the course of antibiotic therapy , pathology and culture of the sternum will be helpful. Remains on the meropenem and vancomycin at this time. 12/21/2017 the patient is status post the sternal reconstruction with muscle flap, reportedly is only a partial closure at this time. However visit. The cardiac structure is completely covered. The patient is showing improvement in her cardiopulmonary status today. No active bleeding is noted. She is tolerating current antibiotic therapy well with meropenem and vancomycin. Await final culture and pathological data to help derive the course of her antibiotic therapy 12/23/2017 reveals the patient to be improved, she has been extubated and tolerating BiPAP well. The case is discussed with the cardiothoracic surgeon. The muscle flap was then performed and there is a biological skin substitute over the flap. She related that the plastic surgeon would not allow a wound VAC to be placed for approximately 10 days after the surgery. We will monitor. Continue current antibiotic therapy planning a multiweek course of therapy for the complex sternal wound infection. Current Visit: Yes Status: Acute Code(s): T81.32XA - DISRUPTION OF INTERNAL OPERATION (SURGICAL) WOUND, NEC, INIT SNOMED Code(s): 96846962
[2017-12-24 00:01] LABS: Glucose,Whole Blood 99 mg/dL (75-99)
[2017-12-24] MEDS: HEPARIN SODIUM,PORCINE 5,000 UNIT/ML 1 ML VIAL SQ SCH ×4 (00:13→23:52)
[2017-12-24] MEDS: INSULIN ASPART 100 UNIT/ML 1 ML 10 ML VIAL SQ SCH ×5 (00:13→23:56)
[2017-12-24] MEDS: MEROPENEM 1 GM in SODIUM CHLORIDE 0.9% 100 ML IVPB SCH ×4 (00:17→23:49)
[2017-12-24] MEDS ORDERED: ALBUMIN HUMAN 5% 250 ML IVPB ONE (02:05)
[2017-12-24] MEDS ORDERED: ALBUMIN HUMAN 5% 250 ML in EMPTY BAG 1 BAG IVPB ONE (02:06)
[2017-12-24] MEDS ORDERED: FUROSEMIDE 10 MG/ML 4 ML VIAL IV STA ×2 (02:07→12:37)
[2017-12-24] MEDS: IPRATROPIUM-ALBUTEROL 3 ML NEB INHALATION SCH ×6 (03:08→23:31)
[2017-12-24] MEDS: MORPHINE SULFATE/PF 10MG/10ML VL IVP PRN ×3 (03:58→23:45)
[2017-12-24 04:12] LABS: ABG Base Excess 5.5 mmol/L; ABG HCO3 30 mmol/L (21-25); ABG Oxygen Saturation 99.8 % (94-97); ABG PCO2 47 mmHg (35-45); ABG PH 7.41 (7.35-7.45); ABG PO2 116 mmHg (83-108); ABG TCO2 32 mmol/L (19-24)
[2017-12-24 04:42] LABS: Anisocytosis Slight; Basophils % (A) 0 %; Eosinophils # (A) 0.2 k/uL (0-0.7); Eosinophils % (A) 1 %; HCT 25.2 % (34.0-46.0); HGB 7.2 gm/dL (11.4-16.0); Hypochromasia Marked; Lymphocytes # (A) 0.9 k/uL (1.0-4.8); Lymphocytes % (A) 7 %; MCH 25.4 pg (25.0-35.0); MCHC 28.6 g/dL (31.0-37.0); MCV 88.9 fL (80.0-100.0); Mean Platelet Volume 8.3; Monocytes # (A) 0.6 k/uL (0-1.0); Monocytes % (A) 5 %; Neutrophils # (A) 11.5 k/uL (1.3-7.7); Neutrophils % (A) 86 %; Platelet Count 288 k/uL (150-450); Poikilocytosis Slight; RBC 2.84 m/uL (3.80-5.40); RDW 19.6 % (11.5-15.5); WBC 13.5 k/uL (3.8-10.6)
[2017-12-24 05:02] LABS: ALT 51 U/L (9-52); AST 79 U/L (14-36); Albumin 2.7 g/dL (3.5-5.0); Alkaline Phosphatase 129 U/L (38-126); Anion Gap 11 mmol/L; Blood Urea Nitrogen 37 mg/dL (7-17); Calcium 8.5 mg/dL (8.4-10.2); Carbon Dioxide 30 mmol/L (22-30); Chloride 104 mmol/L (98-107); Glucose 107 mg/dL (74-99); Magnesium 2.2 mg/dL (1.6-2.3); Phosphorus 3.1 mg/dL (2.5-4.5); Potassium 3.6 mmol/L (3.5-5.1); Sodium 145 mmol/L (137-145); Total Bilirubin 0.7 mg/dL (0.2-1.3); Total Protein 5.6 g/dL (6.3-8.2)
[2017-12-24] MEDS ORDERED: POTASSIUM BICARBONATE/CIT AC 20 MEQ TABLET.EFF NG-TUBE SCH (06:00)
[2017-12-24] MEDS: METOPROLOL TARTRATE 5 MG/5 ML VIAL IVP SCH ×3 (07:12→18:43)
[2017-12-24] MEDS: BUDESONIDE 1 MG/2 ML NEBU INHALATION SCH ×2 (07:40→19:35)
--- NOTE | 2017-12-24 07:56 | XR ---
EXAMINATION TYPE: XR chest 1V portable DATE OF EXAM: 12/24/2017 COMPARISON: 12/24/2017 HISTORY: Shortness of breath FINDINGS: There are bilateral pleural effusions with cardiomegaly and bibasilar infiltrate. There is a diffuse interstitial pattern. ET tube is only 1 cm above osvaldo. There is a drain overlying the mediastinum. Surgical maya noted. NG tube noted. Postsurgical change with prosthetic heart valve seen. Left-si ded central line noted. IMPRESSION: 1. Progressive changes of CHF with bilateral effusions. Correlate for heart failure. Underlying pneum onia not excluded. 2. ET tube is only 1 cm above osvaldo.
[2017-12-24] MEDS ORDERED: ROCURONIUM BROMIDE 10 MG/ML 10 ML VIAL IV ONE (08:53)
[2017-12-24] MEDS ORDERED: MIDAZOLAM 2 MG/2 ML VIAL ONE (08:53)
[2017-12-24] MEDS ORDERED: fentaNYL (PF) 50 MCG/ML 2 ML AMP ONE (08:53)
[2017-12-24] MEDS ORDERED: LACTATED RINGERS 1,000 ML IV ONE (08:53)
[2017-12-24] MEDS ORDERED: PHENYLEPHRINE-0.9% NACL SYG 1 MG/10 ML SYRINGE ONE (08:53)
--- NOTE | 2017-12-24 09:49 | P.PN ---
Subjective Progress Note Date: 12/24/17 Principal diagnosis: Status post 1 vessel bypass grafting and mitral valve replacement. Progress note dated 12/20/2017 This is a 67-year-old female here in the hospital since November 25. The patient had a one-vessel bypass on the any mitral valve repair/replacement as well as a modified maze procedure on the . She was initially extubated on November 30 of BiPAP. When I left her last, which was on December 04, she was postop day #8 status post bypass grafting and mitral valve replacement. She seemed to do pretty well at that time on BiPAP therapy. Since that time, she's had a cardioversion on December 07 a dehiscence of her sternal wound on December 08 and a sister neck to me on December 10. She currently remains intubated. She has been on PSV 10 CPAP and yesterday she spent 10-12 hours on the settings. She apparently is going for a flap repair on December 21 which is tomorrow. She's getting saline IV at KVO and vital high protein at 40. Her vent settings include the assist control mode rate of 14 tidal volume 500 FiO2 40% PEEP of 5. Arterial blood gases show a PaO2 of 108 a PaCO2 of 45 and a pH of 7.47. I'm inclined not to wean her today given the fact that she'll be going for a flap repair tomorrow. In addition, her respiratory rates a bit high in her heart rate is high. We will go do a daily interruption of sedation and attempt a spontaneous breathing trial. Progress note dated 12/21/2017 This is a 67-year-old female here in the hospital since . The patient had a one-vessel bypass on the and mitral valve replacement. She also had a modified maze procedure on the same day. She was initially extubated on 2 BiPAP. When I left her last, she was doing recently well on and off of BiPAP. Currently, the patient is going to the operating room today for a flap repair to be done by the plastic surgeon. The patient had a cardioversion on December 07, a dehiscence of her sternal incision on December 08, and a sternectomy on December 10. Currently, she is on the assist control mode with a tidal volume 500, a rate of 14, and FiO2 of 40% to be reduced down to 30%, and a PEEP of 5. Arterial blood gases show a PaO2 of 148, a PaCO2 of 36 and a pH of 7.49. The patient's on a saline IV at 20 mL an hour, propofol at 30 mics per kilogram per minute tube feeds which are on hold for the surgery. Again she is going to have a flap repair today. Chest x-ray shows similar changes to yesterday. Progress note dated 12/22/2017 67-year-old female who's been in the hospital since November 25. The patient had a one-vessel bypass grafting on the and mitral valve replacement. She also had a modified maze procedure on the same day. She was initially extubated on November 30 to BiPAP. The patient had also to complications after I saw her last including on the need for cardioversion on December 07, dehiscence of her sternal incision on December 08, and sternectomy on December 10. Yesterday, she had a flap repair done by one of the plastic surgeons. She is postop day #1 for that. This morning she was on the assist control mode rate of 14, tidal volume 500, FiO2 30%, and PEEP of 5. Her arterial blood gases show a PaO2 of 95 a PaCO2 of 39 and a pH of 7.49. At that time the patient was on propofol at 25 mcg/m, a saline IV at KVO and vital high protein at a rate of 30 with a goal of 40. The patient looks great today and we went ahead and extubated her to BiPAP. She is on 10 and 5 and 40%. Seemed be doing relatively well with that at the current time. Progress note dated 12/23/2017 Patient is seen again today in the intensive care unit. She was extubated to BiPAP yesterday. She did wear the BiPAP mostly last night. 10/5 and 40%. She did tolerate a brief trial on 5 L high flow nasal cannula this morning as well. She currently denies any worsening shortness of breath. She has a loose nonproductive cough. Chest x-ray shows evidence of cardiomegaly with some pulmonary venous hypertension and interstitial edema. There is left greater than right associated atelectasis. White count 17.0. Hemoglobin 7.7. Platelet count 241,000. Creatinine 0.50. She is continued on vancomycin, meropenem, fluconazole. Progress note dated 12/24/2017 The patient was seen again today in the intensive care unit. She ended up being re-intubated after developing respiratory distress during Dobbhoff tube insertion. She was quite borderline then mainly riding the BiPAP. Current vent settings are assist control of 20, tidal volume 400, FiO2 40% and a PEEP of 5. Morning blood gases revealed a P O2 of 116, pCO2 47, pH 7.41. The plan is for tracheostomy today. She remains on sedation at propofol 50 mcg/kg/m. She is also on pressors at with norepinephrine at 6 John grams per minute. She is a D5 0.45 at 40 miles per hour. White count 13.5. Hemoglobin 7.2. Platelet count 288,000. Sodium 145, potassium 3.6. Creatinine 0.70. Chest wound had been positive for Serratia marcescens. Bronchial washings positive for Rachana. She remains on vancomycin, meropenem, fluconazole. Objective - Vital Signs Vital signs: Vital Signs Temp 98.5 F 12/24/17 04:00 Pulse 85 12/24/17 08:06 Resp 20 12/24/17 07:00 BP 116/54 12/19/17 10:00 Pulse Ox 99 12/24/17 07:00 Intake & Output 12/23/17 12/24/17 12/24/17 18:59 06:59 18:59 Intake Total 953 1633.692 83 Output Total 1250 1585 85 Balance -297 48.692 -2 Weight 111.5 kg 110.3 kg Intake: IV 883 1016 43 Albumin Human 5% 250 ml 250 500 As IVPB .[facility] Rx#: [id number] Dextrose 5%-0.45% NaCl 1, 400 480 40 000 ml @ 40 mls/hr IV . Q24H [facility] Rx#:[id number] Fluconazole in NaCl,Iso- 100 Osm 200 mg In Saline 1 100ml.bag @ 100 mls/hr IVPB DAILY [facility] Rx#: [id number] Meropenem 1 gm In Sodium 100 Chloride 0.9% 100 ml @ 100 mls/hr IVPB Q8HR [facility] Rx#:[id number] Pressure Bag 33 36 3 Intake, IV Titration 97.692 Amount Norepinephrin 16 mg-0.9% 35.625 Ns Pmx 16 mg In 250 ml @ Titrate IV .[facility] Rx#: [id number] Propofol 1,000 mg In 62.067 Empty Bag 1 bag @ Titrate IV .[facility] Rx#: [id number] Tube Feeding 70 520 40 Output: Drainage 1020 1120 Medial Abdomen 900 1000 Right Abdomen 120 120 Urine 230 465 85 Other: Voiding Method Indwelling Catheter Indwelling Catheter ABP, PAP, CO, CI - Last Documented Arterial Blood Pressure 103/41 Pulmonary Artery Pressure 38/33 Cardiac Output 5.8 Cardiac Index 2.9 - Exam Intubated. Sedated. HEENT examination is grossly unremarkable. Mucous membranes are moist. No oral lesions. Neck supple. Full range of motion. No adenopathy thyromegaly or neck vein distention. Chest wall dressing dry and intact. Dressing changed earlier revealed moderate serosanguineous drainage without open incision with mesh held with maya what gauze dry gauze with cover roll. Cardiovascular examination reveals regular rhythm rate. S1-S2 normal. No S3 or S4. No discernible murmur noted. Lungs reveal very coarse bilateral breath sounds. Her sounds are equal bilaterally. No wheezes. A few scattered crackles. Abdomen soft bowel sounds are heard. No masses or tenderness. Extremities are intact. No cyanosis or clubbing. There is slight edema. Skin is without rash or lesion. Neurologic examination unable to perform as the patient is sedated and on the mechanical ventilator - Labs CBC & Chem 7: 12/24/17 04:23 12/24/17 04:23 Labs: Abnormal Lab Results - Last 24 Hours (Table) 12/23/17 12/24/17 12/24/17 Range/Units 15:32 03:58 04:23 WBC 13.5 H (3.8-10.6) k/uL RBC 2.84 L (3.80-5.40) m/uL Hgb 7.2 L (11.4-16.0) gm/dL Hct 25.2 L (34.0-46.0) % MCHC 28.6 L (31.0-37.0) g/dL RDW 19.6 H (11.5-15.5) % Neutrophils # 11.5 H (1.3-7.7) k/uL Lymphocytes # 0.9 L (1.0-4.8) k/uL ABG pH 7.28 L (7.35-7.45) ABG pCO2 62 H 47 H (35-45) mmHg ABG pO2 321 H 116 H (83-108) mmHg ABG HCO3 29 H 30 H (21-25) mmol/L ABG Total CO2 31 H 32 H (19-24) mmol/L ABG O2 Saturation 100.0 H 99.8 H (94-97) % BUN (7-17) mg/dL Glucose (74-99) mg/dL AST (14-36) U/L Alkaline Phosphatase (38-126) U/L Total Protein (6.3-8.2) g/dL Albumin (3.5-5.0) g/dL 12/24/17 Range/Units 04:23 WBC (3.8-10.6) k/uL RBC (3.80-5.40) m/uL Hgb (11.4-16.0) gm/dL Hct (34.0-46.0) % MCHC (31.0-37.0) g/dL RDW (11.5-15.5) % Neutrophils # (1.3-7.7) k/uL Lymphocytes # (1.0-4.8) k/uL ABG pH (7.35-7.45) ABG pCO2 (35-45) mmHg ABG pO2 (83-108) mmHg ABG HCO3 (21-25) mmol/L ABG Total CO2 (19-24) mmol/L ABG O2 Saturation (94-97) % BUN 37 H (7-17) mg/dL Glucose 107 H (74-99) mg/dL AST 79 H (14-36) U/L Alkaline Phosphatase 129 H (38-126) U/L Total Protein 5.6 L (6.3-8.2) g/dL Albumin 2.7 L (3.5-5.0) g/dL Assessment and Plan Assessment: Assessment Postop day #25 status post one-vessel bypass grafting and mitral valve replacement Postoperative respiratory failure with failure to wean, with extubation occurring on 11/30/2017 and again 12/22/2017. Reintubated on 12/23/2017 and Tracheotomy tube placement many 12/24/2017 Status post cardioversion on December 07 Status post wound dehiscence on December 08 Status post sternotomy on December 10 Flap repair on 12/21/2017, postop day #3 Chest x-ray evidence of fluid overload Acute blood loss anemia requiring blood transfusion History of hypertension History of severe mitral regurgitation History of left subclavian stenosis Paroxysmal atrial fibrillation History of GI bleed Obesity Possible aspiration with aspiration pneumonia Plan: The patient was seen and evaluated by Dr. Garcia. Chest x-ray, ABGs and labs were reviewed. We will go ahead and decrease the FiO2 to 35%. The patient is receiving a tracheostomy tube placement today. We'll continue to monitor her here closely in the intensive care unit. Her overall prognosis remains quite guarded. We'll continue with her current medications. We'll continue to follow and make further recommendations based on her clinical status. Critical care time 33 minutes. I, the cosigning physician, performed a history & physical examination of the patient. Lungs sounds have few scattered rhonchi, crackles in the posterior bases. Maintaining good O2 saturations in the 90s on 40% FiO2, decreased to 35% . I discussed the assessment and plan of care with my nurse practitioner, Tiffany Iniguez. I attest to the above note as dictated by her.
[2017-12-24] MEDS: CHLORHEXIDINE GLUCONATE 15 ML CUP MUCOUS MEM SCH ×2 (11:17→22:12)
[2017-12-24] MEDS: BISACODYL 10 MG SUPP RECTAL SCH (11:19)
[2017-12-24] MEDS: FLUCONAZOLE IN NACL,ISO-OSM 200 MG in SALINE 1 100ML.BAG IVPB SCH (11:19)
[2017-12-24] MEDS: DEXTROSE 5%-0.45% NACL 1,000 ML IV SCH (11:20)
[2017-12-24] MEDS: PROPOFOL 1,000 MG in EMPTY BAG 1 BAG IV SCH ×2 (11:43→17:26)
--- NOTE | 2017-12-24 12:09 | XR ---
EXAMINATION TYPE: XR chest 1V portable DATE OF EXAM: 12/24/2017 COMPARISON: Prior chest 12/24/2017 HISTORY: Status post tracheostomy tube TECHNIQUE: Single frontal view of the chest is obtained. FINDINGS: There is been interval removal of the endotracheal and NG tube, placement of a tracheostom y tube. Median sternal drain, surgical clips, overlying cardiac leads again noted. There is improveme nt in aeration within the lungs, some minimal blunting the costophrenic angles persists. The heart is markedly enlarged. PICC line is stable. No evident pneumothorax. IMPRESSION: Interval improvement in aeration, residual effusions and associated atelectasis suspecte d. Cardiomegaly. Postop changes as described.
[2017-12-24] MEDS ORDERED: ALBUMIN HUMAN 25% 50 ML in EMPTY BAG 1 BAG IVPB ONE (13:00)
--- NOTE | 2017-12-24 13:04 | P.PN ---
Subjective Progress Note Date: 12/24/17 Principal diagnosis: Severe mitral valve regurgitation. Coronary artery disease. Preoperative paroxysmal atrial fibrillation on outpatient Coumadin for anticoagulation. Recent hospitalization for lower GI bleed, and duodenal ulcer. History of left subclavian stenosis with stent placement 2014 with recent discovery of critical re-in-stent stenosis. Previous tobacco dependence with preoperative FEV1 60% of predicted. Hypertension. Hyperlipidemia. Depression on Lexapro. Gallbladder disease. Family history of heart disease. Preoperative nasal swab positive for MRSA. Preoperative anemia. POD #29 and Mitral valve replacement using a 25 mm Ribera bioprosthetic tissue valve. Coronary artery bypass grafting 1, a reverse greater saphenous vein graft to the obtuse marginal coronary artery. Endoscopic harvesting of the left greater saphenous vein. Modified MAZE procedure. The report wasn't back yet not back in Ligation of the left atrial appendage using a 40 mm AtriClip. Epi- aortic ultrasound. Intraoperative transesophageal echocardiogram. Intraoperative left ventricular wall tear, an unexpected but potential outcome of surgery. Acute blood loss anemia, an expected outcome given patient's preoperative anemia and intraoperative bleeding. Postoperative prolonged mechanical ventilation secondary to hemodynamic instability, an unexpected but potential outcome of surgery given the extensive nature of her postoperative course. Sternal incision dehiscence, possible outcome of surgery given the patient's obesity, nutrition status and ability. POD #14 sternal wound debridement with placement of wound VAC. POD #9 bronchoscopy and bronchoalveolar lavage of the left lower lobe and extraction of mucous plug POD #3 right rectus abdominous muscle flap closure, open sternal wound. Closure of sternal wound and muscle flap with skin graft substitute, 238 cm. Implantation of reconstructive graft for closure of abdominal wall wound, [address] Krause. Postoperative left lower lobe collapse secondary to mucous plugging, and unexpected but potential outcome of surgery. Bronchial washings positive for Rachana species. Patient is currently lying in bed with her head elevated at 45. She is in no acute distress. She is post operative tracheostomy placement, she remains with mechanical ventilator support.. She is currently sedated on Diprivan drip at 15 mcg/kg/m. Bedside telemetry showing normal sinus rhythm heart rate 82. Her daughter is at her bedside, questions answered to the best my ability. Objective - Vital Signs Vital signs: Vital Signs Temp 98.4 F 12/24/17 11:00 Pulse 83 12/24/17 12:05 Resp 20 12/24/17 11:00 BP 116/54 12/19/17 10:00 Pulse Ox 98 12/24/17 11:00 Intake & Output 12/23/17 12/24/17 12/24/17 18:59 06:59 18:59 Intake Total 953 1633.692 812.313 Output Total 1250 1585 260 Balance -297 48.692 552.313 Weight 111.5 kg 110.3 kg 110.3 kg Intake: IV 883 1016 629 Albumin Human 5% 250 ml 250 500 As IVPB .[facility] Rx#: [id number] Dextrose 5%-0.45% NaCl 1, 400 480 120 000 ml @ 40 mls/hr IV . Q24H [facility] Rx#:[id number] Fluconazole in NaCl,Iso- 100 100 Osm 200 mg In Saline 1 100ml.bag @ 100 mls/hr IVPB DAILY [facility] Rx#: [id number] Meropenem 1 gm In Sodium 100 100 Chloride 0.9% 100 ml @ 100 mls/hr IVPB Q8HR [facility] Rx#:[id number] Pressure Bag 33 36 9 Intake, IV Titration 97.692 143.313 Amount Norepinephrin 16 mg-0.9% 35.625 43.313 Ns Pmx 16 mg In 250 ml @ Titrate IV .Q0M [facility] Rx#: [id number] Propofol 1,000 mg In 62.067 100 Empty Bag 1 bag @ Titrate IV .Q0M [facility] Rx#: [id number] Tube Feeding 70 520 40 Output: Drainage 1020 1120 Medial Abdomen 900 1000 Right Abdomen 120 120 Urine 230 465 250 Estimated Blood Loss 10 Other: Voiding Method Indwelling Catheter Indwelling Catheter ABP, PAP, CO, CI - Last Documented Arterial Blood Pressure 155/68 Pulmonary Artery Pressure 38/33 Cardiac Output 5.8 Cardiac Index 2.9 - Constitutional Constitutional Comment(s): She is currently sedated on Diprivan drip, she is not following any verbal commands at this time. General appearance: Present: no acute distress, obese - Neck Details: Neck is supple, no JVD, no lymphadenopathy. - Respiratory Details: Lung sounds are diminished throughout bilateral. Respirations are symmetrical and nonlabored with mechanical ventilator support. Current ventilator settings are as follows: Assist control 20, TV 400, FiO2 40%, PEEP 5. Current oxygen saturations are 100%. - Cardiovascular Details: Regular rhythm and rate. S1 and S2 present, negative for S3, gallop or murmur. Open chest wound with surgically implanted dressing over muscle flap. Dressing clean and dry. Generalized +2 to +3 edema. Vance wraps in placed to her bilateral lower extremities from her toes to thighs. Knee-high sequential compression devices in place to her bilateral lower extremities. Right brachial A-line in place and functioning, left brachial PICC line in place and functioning. - Gastrointestinal Gastrointestinal Comment(s): Abdomen is soft, nontender and nondistended. Hypoactive bowel sounds all 4 abdominal quadrants. Nothing by mouth at this time awaiting Dobbhoff tube placement. - Genitourinary Genitourinary Comment(s): Mason catheter for accurate I&O. Clear yellow urine. Adequate urine output, 415 mL output in the last 8 hours. - Integumentary Integumentary Comment(s): Skin is warm and dry. Open chest wound with dressing in place. Stage II to her sacrum with local wound care in place. Abdominal incisions clean dry and well approximated. No redness present. [place] intact. HENRI drains in place draining copious amount of serous drainage. - Neurologic Neurologic: Present: CNII-XII intact - Musculoskeletal Musculoskeletal: Present: generalized weakness - Psychiatric Psychiatric Comment(s): Remain sedated with Diprivan drip. - Allied health notes Allied health notes reviewed: nursing - Labs CBC & Chem 7: 12/24/17 04:23 12/24/17 04:23 Labs: Abnormal Lab Results - Last 24 Hours (Table) 12/23/17 12/24/17 12/24/17 Range/Units 15:32 03:58 04:23 WBC 13.5 H (3.8-10.6) k/uL RBC 2.84 L (3.80-5.40) m/uL Hgb 7.2 L (11.4-16.0) gm/dL Hct 25.2 L (34.0-46.0) % MCHC 28.6 L (31.0-37.0) g/dL RDW 19.6 H (11.5-15.5) % Neutrophils # 11.5 H (1.3-7.7) k/uL Lymphocytes # 0.9 L (1.0-4.8) k/uL ABG pH 7.28 L (7.35-7.45) ABG pCO2 62 H 47 H (35-45) mmHg ABG pO2 321 H 116 H (83-108) mmHg ABG HCO3 29 H 30 H (21-25) mmol/L ABG Total CO2 31 H 32 H (19-24) mmol/L ABG O2 Saturation 100.0 H 99.8 H (94-97) % BUN (7-17) mg/dL Glucose (74-99) mg/dL AST (14-36) U/L Alkaline Phosphatase (38-126) U/L Total Protein (6.3-8.2) g/dL Albumin (3.5-5.0) g/dL 12/24/17 Range/Units 04:23 WBC (3.8-10.6) k/uL RBC (3.80-5.40) m/uL Hgb (11.4-16.0) gm/dL Hct (34.0-46.0) % MCHC (31.0-37.0) g/dL RDW (11.5-15.5) % Neutrophils # (1.3-7.7) k/uL Lymphocytes # (1.0-4.8) k/uL ABG pH (7.35-7.45) ABG pCO2 (35-45) mmHg ABG pO2 (83-108) mmHg ABG HCO3 (21-25) mmol/L ABG Total CO2 (19-24) mmol/L ABG O2 Saturation (94-97) % BUN 37 H (7-17) mg/dL Glucose 107 H (74-99) mg/dL AST 79 H (14-36) U/L Alkaline Phosphatase 129 H (38-126) U/L Total Protein 5.6 L (6.3-8.2) g/dL Albumin 2.7 L (3.5-5.0) g/dL - Imaging and Cardiology Chest x-ray: report reviewed, image reviewed Assessment and Plan (1) Acute blood loss as cause of postoperative anemia Current Visit: Yes Status: Acute Code(s): D62 - ACUTE POSTHEMORRHAGIC ANEMIA SNOMED Code(s): 17353675017035692 (2) CAD (coronary artery disease) Current Visit: Yes Status: Chronic Code(s): I25.10 - ATHSCL HEART DISEASE OF [place] CORONARY ARTERY W/O ANG PCTRS SNOMED Code(s): 38715219 (3) Family history of coronary artery disease Current Visit: Yes Status: Chronic Code(s): Z82.49 - FAMILY HX OF I[place]HE[place] HEART DIS AND OTH DIS OF THE CIRC SYS SNOMED Code(s): 340378402 (4) Hyperlipidemia Current Visit: Yes Status: Chronic Code(s): E78.5 - HYPERLIPIDEMIA, UNSPECIFIED SNOMED Code(s): 54883318 (5) Hypertension Current Visit: Yes Status: Chronic Code(s): I10 - ESSENTIAL (PRIMARY) HYPERTENSION SNOMED Code(s): 50288653 (6) Severe mitral regurgitation Current Visit: Yes Status: Chronic Code(s): I34.0 - NONRHEUMATIC MITRAL ( VALVE) INSUFFICIENCY SNOMED Code(s): 30608574 (7) Stenosis of left subclavian artery Current Visit: Yes Status: Chronic Code(s): I77.1 - STRICTURE OF ARTERY SNOMED Code(s): 27984281522299688 (8) PAD (peripheral artery disease) Current Visit: No Status: Acute Code(s): I73.9 - PERIPHERAL VASCULAR DISEASE , UNSPECIFIED SNOMED Code(s): 982750727 (9) History of GI bleed Current Visit: No Status: Resolved Code(s): Z87.19 - PERSONAL HISTORY OF OTHER DISEASES OF THE DIGESTIVE SYSTEM SNOMED Code(s): 717322483 (10) Paroxysmal atrial fibrillation Current Visit: No Status: Resolved Code(s): I48.0 - PAROXYSMAL ATRIAL FIBRILLATION SNOMED Code(s): 762434926 (11) Elevated aspartate aminotransferase level Current Visit: Yes Status: Acute Code(s): R74.0 - NONSPEC ELEV OF LEVELS OF TRANSAMNS & LACTIC ACID DEHYDRGNSE SNOMED Code(s): 298242017 Plan: 1. Continue low-dose aspirin, statin, subcutaneous heparin, beta krunal. Will increase beta krunal therapy as tolerated. 2. Continue amiodarone for history of paroxysmal atrial fibrillation on home amiodarone. 3. Pulmonary and ventilator management per Dr. Garcia's recommendations. 4. Continue meropenem, vancomycin and Diflucan per Dr. Olivera management 5. Consult gastroenterology for Dobbhoff placement and plan for future PEG tube placement. 6. Will monitor labs, chest x-rays. 7. Bronchodilators per pulmonology management. 8. We will hold Coumadin for now until sternal muscle flap surgery is complete. 9. GI/DVT prophylaxis. 10. Dressing changes to sternal wound to be done daily by cardiothoracic surgeon or nurse practitioner. 11. Keep HENRI drains in place. 12. Continue Mason catheter for accurate I&O. 13. Continue tube feedings for nutritional support once Dobbhoff tube is placed. 14. Albumin 25% followed by Lasix 40 mg IV 1 today. 15. More recommendations as patient progresses in her care. Time with Patient: Greater than 30
--- NOTE | 2017-12-24 13:10 | PN ---
PROGRESS NOTE A 67-year-old lady with coronary artery disease, status post CABG, mitral regurgitation, status post mitral valve replacement whose preoperative course was complicated by sternal wound dehiscence. Yesterday, she was doing better, developed respiratory distress, had to be reintubated, went on to have a tracheostomy. This morning, she remains in sinus rhythm. Hemodynamically stable and sedated. PHYSICAL EXAM: Heart rate is 90 beats per minute, blood pressure is 150/60, respiratory rate is 18. Chest exam reveals diminished air entry at the bases. Heart exam reveals first and second heart sounds. No gallop. Exam of the extremities did not reveal any edema. Peripheral pulses are palpable. Labs show a hemoglobin of 7.2. ASSESSMENT: 1. Coronary artery disease, status post coronary artery bypass grafting. 2. Respiratory failure, status post tracheostomy. 3. Mitral regurgitation, status post mitral valve replacement. 4. Sternal wound dehiscence. PLAN: Patient will continue current medications. MMODL / IJN: [id number] /
[2017-12-24] MEDS: PANTOPRAZOLE 40 MG TABLET PO SCH (13:45)
[2017-12-24] MEDS: ATORVASTATIN 40 MG TAB PO SCH (13:45)
[2017-12-24] MEDS: AMIODARONE 200 MG TAB PO SCH ×2 (13:45→20:38)
[2017-12-24] MEDS: LACTOBACILLUS ACIDOPH & BULGAR 1 EACH PACKET PO SCH ×3 (13:45→20:39)
[2017-12-24] MEDS: ASPIRIN 81 MG PO SCH (13:45)
--- NOTE | 2017-12-24 13:49 | P.PN ---
Subjective Progress Note Date: 12/24/17 Progress note being dictated for Dr. Lugo Interval history: This is 67-year-old female status post CABG, mitral valve replacement, status post multiple blood products transfusions. Remains vent dependent on 40% FiO2/+5 of PEEP. Chest x-ray reporting fluid overload, improvement in volume status, aeration.Maintained on norepinephrine, Primacor, dopamine and insulin drip. Cardiac index 2.7. Telemetry atrial flutter/sinus tach. Tube feeding initiated via OG tube. Hemoglobin 7.3, Platelets decreased to 64 today, maintained on low-dose aspirin. Review systems unable to obtain as patient sedated and on mechanical ventilation. Active Medications Albuterol/Ipratropium (Duoneb 0.5 Mg-3 Mg/3 Ml Soln) 3 ml INHALATION RT-Q4H [facility] Last Admin: 11/29/17 15:17 Dose: 3 ml Albuterol/Ipratropium (Duoneb 0.5 Mg-3 Mg/3 Ml Soln) 3 ml INHALATION RT-Q2H PRN PRN Reason: Shortness Of Breath Or Wheezing Amiodarone HCl (Cordarone) 200 mg PO BID [facility] Aspirin (Aspirin) 81 mg PO DAILY [facility] Last Admin: 11/29/17 08:54 Dose: 81 mg Atorvastatin Calcium (Lipitor) 40 mg PO DAILY [facility] Last Admin: 11/29/17 08:54 Dose: 40 mg Benzocaine/Menthol (Cepacol Lozenge) 1 each MUCOUS MEM Q2H PRN PRN Reason: Sore Throat Bisacodyl (Dulcolax) 10 mg RECTAL DAILY PRN PRN Reason: Constipation Chlorhexidine Gluconate (Peridex) 15 ml MUCOUS MEM BID [facility] Last Admin: 11/29/17 08:48 Dose: 15 ml Furosemide (Lasix) 40 mg IV ONCE ONE Stop: 11/29/17 20:01 Propofol 1,000 mg/ IV Solution 100 mls @ 0 mls/hr IV .Q0M [facility]; Titrate PRN Reason: Protocol Last Admin: 11/29/17 17:54 Dose: 26.13 mcg/kg/min, 17.2 mls/hr Norepinephrine Bitartrate (Levophed-0.9% Nacl 16 Mg/250ml Pmx) 16 mg in 250 mls @ 0 mls/hr IV .Q0M [facility]; Titrate PRN Reason: Protocol Last Admin: 11/29/17 17:54 Dose: 2 mcg/min, 1.875 mls/hr Sodium Chloride (Saline 0.45%) 1,000 mls @ 30 mls/hr IV .Q24H [facility] Last Admin: 11/29/17 10:28 Dose: Not Given Milrinone Lactate/Dextrose 20 (mg/ IV Solution) 100 mls @ 6.58 mls/hr IV .[id number] [facility] PRN Reason: 0.2 MCG/KG/MIN Last Admin: 11/29/17 15:38 Dose: 0.2 mcg/kg/min, 6.58 mls/hr Insulin Aspart (Novolog) 0 unit SQ Q6HR [facility] PRN Reason: Protocol Last Admin: 11/29/17 12:36 Dose: Not Given Magnesium Hydroxide (Milk Of Magnesia) 2,400 mg PO BID PRN PRN Reason: Constipation Metoprolol Tartrate (Lopressor) 12.5 mg PO BID [facility] Last Admin: 11/29/17 08:55 Dose: 12.5 mg Miscellaneous Information (Magnesium Per Protocol) 1 each MISCELLANE DAILY PRN ; Protocol PRN Reason: Per Protocol Miscellaneous Information (Phosphorus Per Protocol) 1 each MISCELLANE DAILY PRN ; Protocol PRN Reason: Per Protocol Miscellaneous Information (Potassium Per Protocol) 1 each MISCELLANE DAILY PRN ; Protocol PRN Reason: Per Protocol Miscellaneous Information (Potassium Per Protocol) 1 each MISCELLANE DAILY PRN ; Protocol PRN Reason: Per Protocol Morphine Sulfate (Morphine Oral [place] 2mg/Ml) 6 mg PO Q2H PRN PRN Reason: Severe Pain Ondansetron HCl (Zofran) 4 mg IVP Q6HR PRN PRN Reason: Nausea And Vomiting Pantoprazole Sodium (Protonix) 40 mg IVP DAILY [facility] Last Admin: 11/29/17 08:55 Dose: 40 mg Senna/Docusate Sodium (Senokot-S) 2 each PO HS [facility] Last Admin: 11/28/17 20:41 Dose: 2 each Sodium Chloride (Saline Flush) 10 ml IV BID [facility] Last Admin: 11/29/17 08:56 Dose: 10 ml 11/30/2017 Chest x-ray reporting increased congestion, received additional Lasix. extubated this morning, currently maintained on BiPAP. Norepinephrine weaned off this morning. Maintained on Primacor, cardiac index 2.6. Received 1 dose of Lasix IV push. Renal function improving. Hemoglobin 7, platelets increased to 74. Atrial flutter per telemetry. Review systems unable to obtain as patient BiPAP dependent. Active Medications Generic Name Dose Route Start Last Admin Trade Name Freq PRN Reason Stop Dose Admin Albuterol/Ipratropium 3 ml 11/25/17 20:00 11/30/17 15:23 Duoneb 0.5 Mg-3 Mg/3 Ml Soln INHALATION 3 ml RT-Q4H [facility] Administration Albuterol/Ipratropium 3 ml 11/26/17 17:53 Duoneb 0.5 Mg-3 Mg/3 Ml Soln INHALATION RT-Q2H PRN Shortness Of Breath Or Wheezing Amiodarone HCl 200 mg 11/29/17 21:00 11/30/17 08:14 Cordarone PO 200 mg BID [facility] Administration Aspirin 81 mg 11/26/17 10:15 11/30/17 08:15 Aspirin PO 81 mg DAILY [facility] Administration Atorvastatin Calcium 40 mg 11/26/17 09:00 11/30/17 08:14 Lipitor PO 40 mg DAILY [facility] Administration Benzocaine/Menthol 1 each 11/25/17 19:03 Cepacol Lozenge MUCOUS MEM Q2H PRN Sore Throat Bisacodyl 10 mg 11/26/17 17:52 Dulcolax RECTAL DAILY PRN Constipation Fondaparinux 2.5 mg 11/30/17 11:30 11/30/17 13:23 Arixtra SQ 2.5 mg DAILY [facility] Administration Norepinephrine Bitartrate 16 mg in 250 mls @ 0 mls/hr 11/26/17 04:15 11:58 Levophed-0.9% Nacl 16 Mg/250ml Pmx IV 0 mcg/min .Q0M [facility] 0 mls/hr Protocol Titration Titrate Sodium Chloride 1,000 mls @ 10 mls/hr 11/26/17 10:15 11/30/17 12:51 Saline 0.45% IV Not Given .Q24H [facility] Milrinone Lactate/Dextrose 20 100 mls @ 6.58 mls/hr 11/29/17 15:00 11/30/17 08:16 mg/ IV Solution IV 0.2 mcg/kg/min .[id number] [facility] 6.58 mls/hr 0.2 MCG/KG/MIN Infusion Insulin Aspart 0 unit 11/29/17 12:00 11/30/17 12:50 Novolog SQ Not Given Q6HR [facility] Protocol Magnesium Hydroxide 2,400 mg 11/26/17 17:53 Milk Of Magnesia PO BID PRN Constipation Metoprolol Tartrate 12.5 mg 11/26/17 09:00 11/30/17 08:15 Lopressor PO 12.5 mg BID [facility] Administration Miscellaneous Information 1 each 11/25/17 19:03 Magnesium Per Protocol MISCELLANE DAILY PRN Per Protocol Protocol Miscellaneous Information 1 each 11/25/17 19:03 Phosphorus Per Protocol MISCELLANE DAILY PRN Per Protocol Protocol Miscellaneous Information 1 each 11/25/17 19:03 Potassium Per Protocol MISCELLANE DAILY PRN Per Protocol Protocol Miscellaneous Information 1 each 11/29/17 12:01 Potassium Per Protocol MISCELLANE DAILY PRN Per Protocol Protocol Morphine Sulfate 6 mg 11/29/17 13:31 Morphine Oral [place] 2mg/Ml PO Q2H PRN Severe Pain Ondansetron HCl 4 mg 11/25/17 19:03 Zofran IVP Q6HR PRN Nausea And Vomiting Pantoprazole Sodium 40 mg 11/26/17 09:00 11/30/17 08:15 Protonix IVP 40 mg DAILY [facility] Administration Senna/Docusate Sodium 2 each 11/26/17 21:00 11/29/17 20:40 Senokot-S PO 2 each HS [facility] Administration Sodium Chloride 10 ml 11/25/17 21:00 11/30/17 08:15 Saline Flush IV 10 ml BID [facility] Administration 12/01/2017 Breathing improving, weaned off of BiPAP and down to 6 L high flow. Wheezing resolved. Chest x-ray reports improvement. Staff reports patient appeared to be choking on pills last night, speech therapy consulted. Receiving one unit of packed RBCs for hemoglobin of 6.7. Mediastinal chest tubes discontinued, left pleural chest tube remains. Maintained on Primacor. Telemetry atrial flutter. Review of systems: CONSTITUTIONAL: No fever, no malaise HEENT: No recent visual problems or hearing problems. Denied any sore throat. CARDIOVASCULAR: No chest pain, no palpitations, no syncope. PULMONARY: Improving shortness of breath, no cough, no hemoptysis. GASTROINTESTINAL: No diarrhea, no nausea, no vomiting, no abdominal pain. Normoactive bowel sounds. NEUROLOGICAL: No headaches, diffuse weakness, no numbness. HEMATOLOGICAL: Denies any bleeding or petechiae. GENITOURINARY: Denies any burning micturition, frequency, or urgency. ENDOCRINE: Denies any polyuria or polydipsia. PSYCHIATRIC: No anxiety, no depression Active Medications Hydrocodone Bitart/Acetaminophen ([place] 5-325) 1 each PO Q4HR PRN PRN Reason: MILD TO MODERATE Pain Last Admin: 12/01/17 22:44 Dose: 1 each Hydrocodone Bitart/Acetaminophen ([place] 5-325) 2 each PO Q4HR PRN PRN Reason: MODERATE TO SEVERE Pain Albuterol/Ipratropium (Duoneb 0.5 Mg-3 Mg/3 Ml Soln) 3 ml INHALATION RT-Q4H [facility] Last Admin: 12/02/17 15:06 Dose: 3 ml Albuterol/Ipratropium (Duoneb 0.5 Mg-3 Mg/3 Ml Soln) 3 ml INHALATION RT-Q2H PRN PRN Reason: Shortness Of Breath Or Wheezing Last Admin: 12/01/17 18:09 Dose: 3 ml Amiodarone HCl (Cordarone) 200 mg PO BID [facility] Last Admin: 12/02/17 08:10 Dose: 200 mg Aspirin (Aspirin) 81 mg PO DAILY [facility] Last Admin: 12/02/17 08:10 Dose: 81 mg Atorvastatin Calcium (Lipitor) 40 mg PO DAILY [facility] Last Admin: 12/02/17 08:10 Dose: 40 mg Benzocaine/Menthol (Cepacol Lozenge) 1 each MUCOUS MEM Q2H PRN PRN Reason: Sore Throat Bisacodyl (Dulcolax) 10 mg RECTAL DAILY PRN PRN Reason: Constipation Budesonide (Pulmicort) 1 mg INHALATION RT-BID [facility] Last Admin: 12/02/17 07:19 Dose: 1 mg Fondaparinux (Arixtra) 2.5 mg SQ DAILY [facility] Last Admin: 12/02/17 08:10 Dose: 2.5 mg Formoterol Fumarate (Perforomist) 20 mcg INHALATION RT-BID [facility] Last Admin: 12/02/17 07:36 Dose: 20 mcg Norepinephrine Bitartrate (Levophed-0.9% Nacl 16 Mg/250ml Pmx) 16 mg in 250 mls @ 0 mls/hr IV .Q0M [facility]; Titrate PRN Reason: Protocol Last Titration: 11/30/17 11:58 Dose: 0 mcg/min, 0 mls/hr Sodium Chloride (Saline 0.45%) 1,000 mls @ 10 mls/hr IV .Q24H [facility] Last Admin: 12/01/17 14:04 Dose: 10 mls/hr Milrinone Lactate/Dextrose 20 (mg/ IV Solution) 100 mls @ 6.58 mls/hr IV .[id number] [facility] PRN Reason: 0.2 MCG/KG/MIN Last Admin: 12/02/17 08:57 Dose: 0.2 mcg/kg/min, 6.58 mls/hr Insulin Aspart (Novolog) 0 unit SQ Q6HR [facility] PRN Reason: Protocol Last Admin: 12/02/17 12:53 Dose: Not Given Magnesium Hydroxide (Milk Of Magnesia) 2,400 mg PO BID PRN PRN Reason: Constipation Methylprednisolone Sodium Succinate (Solu-Medrol) 30 mg IV Q8HR [facility] Last Admin: 12/02/17 08:10 Dose: 30 mg Metoprolol Tartrate (Lopressor) 25 mg PO BID [facility] Last Admin: 12/02/17 08:59 Dose: 25 mg Miscellaneous Information (Magnesium Per Protocol) 1 each MISCELLANE DAILY PRN ; Protocol PRN Reason: Per Protocol Miscellaneous Information (Phosphorus Per Protocol) 1 each MISCELLANE DAILY PRN ; Protocol PRN Reason: Per Protocol Miscellaneous Information (Potassium Per Protocol) 1 each MISCELLANE DAILY PRN ; Protocol PRN Reason: Per Protocol Miscellaneous Information (Potassium Per Protocol) 1 each MISCELLANE DAILY PRN ; Protocol PRN Reason: Per Protocol Ondansetron HCl (Zofran) 4 mg IVP Q6HR PRN PRN Reason: Nausea And Vomiting Pantoprazole Sodium (Protonix) 40 mg IVP DAILY [facility] Last Admin: 12/02/17 08:10 Dose: 40 mg Senna/Docusate Sodium (Senokot-S) 2 each PO HS [facility] Last Admin: 12/01/17 21:55 Dose: 2 each Sodium Chloride (Saline Flush) 10 ml IV BID [facility] Last Admin: 12/02/17 12:51 Dose: 10 ml 12/02/17 Much more alert today. Oxygen weaned further down to 5 L nasal cannula, maintaining O2 sats in the high 90s. Pleural chest tube discontinued. Chest x- ray reporting probable right lower lobe atelectasis/effusion. Underwent modified barium swallow, with recommendations of regular diet, thin liquids, chin tuck, no straw, small bites/sepsis/sips; no impairment with exception of mild transient penetration with thin liquids which patient independently cleared. Yesterday receive 1 unit of packed RBCs with current hemoglobin 8. Weaning of Primacor in progress. 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 Review of systems: CONSTITUTIONAL: No fever, no malaise, no fatigue. HEENT: No recent visual problems or hearing problems. Denied any sore throat. CARDIOVASCULAR: No chest pain, no palpitations, no syncope. PULMONARY: Minimal shortness of breath, no cough, no hemoptysis. GASTROINTESTINAL: No diarrhea, no nausea, no vomiting, no abdominal pain. Normoactive bowel sounds. NEUROLOGICAL: No headaches, no weakness, no numbness. HEMATOLOGICAL: Denies any bleeding or petechiae. GENITOURINARY: Denies any burning micturition, frequency, or urgency. MUSCULOSKELETAL/RHEUMATOLOGICAL: Denies any joint pain, swelling, or any muscle pain. ENDOCRINE: Denies any polyuria or polydipsia. PSYCHIATRIC: No anxiety, no depression The rest of the 14 point review of systems is negative Active Medications Generic Name Dose Route Start Last Admin Trade Name Freq PRN Reason Stop Dose Admin Hydrocodone Bitart/Acetaminophen 1 each 12/01/17 12:20 12/01/17 22:44 [place] 5-325 PO 1 each Q4HR PRN Administration MILD TO MODERATE Pain Hydrocodone Bitart/Acetaminophen 2 each 12/01/17 12:20 [place] 5-325 PO Q4HR PRN MODERATE TO SEVERE Pain Albuterol/Ipratropium 3 ml 11/25/17 20:00 12/02/17 15:06 Duoneb 0.5 Mg-3 Mg/3 Ml Soln INHALATION 3 ml RT-Q4H [facility] Administration Albuterol/Ipratropium 3 ml 11/26/17 17:53 12/01/17 18:09 Duoneb 0.5 Mg-3 Mg/3 Ml Soln INHALATION 3 ml RT-Q2H PRN Administration Shortness Of Breath Or Wheezing Amiodarone HCl 200 mg 11/29/17 21:00 12/02/17 08:10 Cordarone PO 200 mg BID [facility] Administration Aspirin 81 mg 11/26/17 10:15 12/02/17 08:10 Aspirin PO 81 mg DAILY [facility] Administration Atorvastatin Calcium 40 mg 11/26/17 09:00 12/02/17 08:10 Lipitor PO 40 mg DAILY [facility] Administration Benzocaine/Menthol 1 each 11/25/17 19:03 Cepacol Lozenge MUCOUS MEM Q2H PRN Sore Throat Bisacodyl 10 mg 11/26/17 17:52 Dulcolax RECTAL DAILY PRN Constipation Budesonide 1 mg 12/01/17 20:00 12/02/17 07:19 Pulmicort INHALATION 1 mg RT-BID [facility] Administration Fondaparinux 2.5 mg 11/30/17 11:30 12/02/17 08:10 Arixtra SQ 2.5 mg DAILY [facility] Administration Formoterol Fumarate 20 mcg 12/01/17 20:00 12/02/17 07:36 Perforomist INHALATION 20 mcg RT-BID [facility] Administration Norepinephrine Bitartrate 16 mg in 250 mls @ 0 mls/hr 11/26/17 04:15 11:58 Levophed-0.9% Nacl 16 Mg/250ml Pmx IV 0 mcg/min .Q0M [facility] 0 mls/hr Protocol Titration Titrate Sodium Chloride 1,000 mls @ 10 mls/hr 11/26/17 10:15 12/02/17 15:41 Saline 0.45% IV Not Given .Q24H [facility] Milrinone Lactate/Dextrose 20 100 mls @ 6.58 mls/hr 11/29/17 15:00 12/02/17 08:57 mg/ IV Solution IV 0.2 mcg/kg/min .[id number] [facility] 6.58 mls/hr 0.2 MCG/KG/MIN Administration Insulin Aspart 0 unit 11/29/17 12:00 12/02/17 12:53 Novolog SQ Not Given Q6HR [facility] Protocol Magnesium Hydroxide 2,400 mg 11/26/17 17:53 Milk Of Magnesia PO BID PRN Constipation Methylprednisolone Sodium Succinate 30 mg 12/01/17 16:00 12/02/17 08:10 Solu-Medrol IV 30 mg Q8HR [facility] Administration Metoprolol Tartrate 25 mg 12/02/17 09:00 12/02/17 08:59 Lopressor PO 25 mg BID [facility] Administration Miscellaneous Information 1 each 11/25/17 19:03 Magnesium Per Protocol MISCELLANE DAILY PRN Per Protocol Protocol Miscellaneous Information 1 each 11/25/17 19:03 Phosphorus Per Protocol MISCELLANE DAILY PRN Per Protocol Protocol Miscellaneous Information 1 each 11/25/17 19:03 Potassium Per Protocol MISCELLANE DAILY PRN Per Protocol Protocol Miscellaneous Information 1 each 11/29/17 12:01 Potassium Per Protocol MISCELLANE DAILY PRN Per Protocol Protocol Ondansetron HCl 4 mg 11/25/17 19:03 Zofran IVP Q6HR PRN Nausea And Vomiting Pantoprazole Sodium 40 mg 11/26/17 09:00 12/02/17 08:10 Protonix IVP 40 mg DAILY [facility] Administration Senna/Docusate Sodium 2 each 11/26/17 21:00 12/01/17 21:55 Senokot-S PO 2 each HS [facility] Administration Sodium Chloride 10 ml 11/25/17 21:00 12/02/17 12:51 Saline Flush IV 10 ml BID [facility] Administration 12/03/17 maintained on nebulized bronchodilators, steroids,patient tachypneic, requiring BiPap throughout today off and on. Chest x-ray suggestive of fluid overload. Received additional Lasix. Maintained on oral amiodarone, remains in a-flutter. Overdrive atrial pacing attempted unsuccessfully. Digoxin 2 ordered. Pacer wires discontinued today. Stool at bedside with PT OT, remains extremely weak. Primacor weaned off yesterday. 2017 currently in atrial fibrillation with heart rates up into the 150s, scheduled for cardioversion tomorrow. INR 2.2. Patient currently wearing BiPAP ,has required on and off all day. Chest ultrasound reporting bilateral pleural effusions, larger on the right. Thoracentesis on hold, awaiting cardioversion.Chest x-ray reporting prominent interstitium and central vascularity, increased bibasilar density. Attempting diuresing with Lasix and Zaroxolyn. Review systems unable to obtain as patient currently on BiPAP. Active Medications Hydrocodone Bitart/Acetaminophen ([place] 5-325) 1 each PO Q4HR PRN PRN Reason: MILD TO MODERATE Pain Last Admin: 12/07/17 10:48 Dose: 1 each Hydrocodone Bitart/Acetaminophen ([place] 5-325) 2 each PO Q4HR PRN PRN Reason: MODERATE TO SEVERE Pain Last Admin: 12/07/17 16:39 Dose: 2 each Albuterol/Ipratropium (Duoneb 0.5 Mg-3 Mg/3 Ml Soln) 3 ml INHALATION RT-Q2H PRN PRN Reason: Shortness Of Breath Or Wheezing Last Admin: 12/01/17 18:09 Dose: 3 ml Albuterol/Ipratropium (Duoneb 0.5 Mg-3 Mg/3 Ml Soln) 3 ml INHALATION RT-QID [facility] Last Admin: 12/07/17 16:43 Dose: 3 ml Amiodarone HCl (Cordarone) 200 mg PO BID [facility] Aspirin (Aspirin) 81 mg PO DAILY [facility] Last Admin: 12/07/17 08:53 Dose: 81 mg Atorvastatin Calcium (Lipitor) 40 mg PO DAILY [facility] Last Admin: 12/07/17 08:53 Dose: 40 mg Benzocaine/Menthol (Cepacol Lozenge) 1 each MUCOUS MEM Q2H PRN PRN Reason: Sore Throat Bisacodyl (Dulcolax) 10 mg RECTAL DAILY PRN PRN Reason: Constipation Budesonide (Pulmicort) 1 mg INHALATION RT-BID [facility] Last Admin: 12/07/17 08:36 Dose: 1 mg Escitalopram Oxalate (Lexapro) 10 mg PO HS [facility] Furosemide (Lasix) 40 mg IV Q12HR [facility] Last Admin: 12/07/17 08:33 Dose: 40 mg Piperacillin/Tazobactam/ (Dextrose 3.375 gm/ IV Solution) 50 mls @ 12.5 mls/hr IVPB Q8HR [facility] Last Admin: 12/07/17 16:39 Dose: 12.5 mls/hr Sodium Chloride (Saline 0.9%) 1,000 mls @ 20 mls/hr IV .Q24H [facility] Last Admin: 12/07/17 13:00 Dose: 20 mls/hr Lactated Ringer's (Lactated Ringers) 1,000 mls @ 20 mls/hr IV .Q24H [facility] Last Admin: 12/06/17 20:45 Dose: 20 mls/hr Insulin Aspart (Novolog) 0 unit SQ ACHS [facility] PRN Reason: Protocol Last Admin: 12/07/17 13:01 Dose: 2 unit Magnesium Hydroxide (Milk Of Magnesia) 2,400 mg PO BID PRN PRN Reason: Constipation Methylprednisolone Sodium Succinate (Solu-Medrol) 30 mg IV Q8HR [facility] Last Admin: 12/07/17 16:39 Dose: 30 mg Metolazone (Zaroxolyn) 5 mg PO DAILY [facility] Last Admin: 12/07/17 08:53 Dose: 5 mg Metoprolol Tartrate (Lopressor) 50 mg PO BID [facility] Last Admin: 12/07/17 08:53 Dose: 50 mg Miscellaneous Information (Magnesium Per Protocol) 1 each MISCELLANE DAILY PRN ; Protocol PRN Reason: Per Protocol Miscellaneous Information (Phosphorus Per Protocol) 1 each MISCELLANE DAILY PRN ; Protocol PRN Reason: Per Protocol Miscellaneous Information (Potassium Per Protocol) 1 each MISCELLANE DAILY PRN ; Protocol PRN Reason: Per Protocol Ondansetron HCl (Zofran) 4 mg IVP Q6HR PRN PRN Reason: Nausea And Vomiting Pantoprazole Sodium (Protonix) 40 mg PO AC-BRKFST [facility] Last Admin: 12/07/17 08:53 Dose: 40 mg Senna/Docusate Sodium (Senokot-S) 2 each PO HS [facility] Last Admin: 12/06/17 20:29 Dose: 2 each Sodium Chloride (Saline Flush) 10 ml IV BID [facility] Last Admin: 12/07/17 10:48 Dose: 10 ml 12/07/2017 Underwent successful cardioversion this morning,360J X1, remains in sinus rhythm. Currently wearing BiPAP. Nonproductive cough. Diuresing well on Lasix and Zaroxolyn with 24-hour I&O reflecting a negative fluid balance. Chest x-ray reporting stable bilateral areas of infiltrate and pleural effusions , possible CHF, possible pneumonia. INR 3.8, afebrile, WBC 17. Maintained on Zosyn. Sternal wound drainage, cultures sent. 12/08/2017 Cardioverted yesterday, remains in sinus rhythm .continues requiring BiPAP for majority of morning. Echo reporting-limited study for assessment of pericardial effusion, small generalized pericardial effusion, low normal LV function, EF 50-55%. Chest CT reporting sternal dehiscence, moderate to large pericardial effusion, possible mass effect onto the left ventricle, no significant right atrial dilatation to clearly indicate tamponade, moderate left pleural effusion with adjacent complete left lower lobar and inferior lingular collapse, small right pleural effusion, right basilar subsegmental atelectasis. Chest x-ray noted. Blood sugars controlled. INR 4.8, received vitamin K this morning. Diuresing well on Lasix IV push, Zaroxolyn. 24-hour I& O reflecting a negative fluid balance, decreased weight. Midsternal incision open, draining large amount of serosanguineous drainage. Currently maintained on Zosyn. Wound cultures pending. Afebrile. Review systems unable to obtain as patient currently on BiPAP. Active Medications Generic Name Dose Route Start Last Admin Trade Name Freq PRN Reason Stop Dose Admin Hydrocodone Bitart/Acetaminophen 1 each 12/01/17 12:20 12/08/17 06:26 [place] 5-325 PO 1 each Q4HR PRN Administration MILD TO MODERATE Pain Hydrocodone Bitart/Acetaminophen 2 each 12/01/17 12:20 12/08/17 18:41 [place] 5-325 PO 2 each Q4HR PRN Administration MODERATE TO SEVERE Pain Acetazolamide Sodium 250 mg 12/08/17 09:15 12/08/17 11:16 Diamox IV 12/08/17 21:01 250 mg Q12HR [facility] Administration Albuterol/Ipratropium 3 ml 11/26/17 17:53 12/08/17 05:16 Duoneb 0.5 Mg-3 Mg/3 Ml Soln INHALATION 3 ml RT-Q2H PRN Administration Shortness Of Breath Or Wheezing Albuterol/Ipratropium 3 ml 12/03/17 08:00 12/08/17 15:38 Duoneb 0.5 Mg-3 Mg/3 Ml Soln INHALATION 3 ml RT-QID [facility] Administration Amiodarone HCl 200 mg 12/08/17 09:00 12/08/17 08:24 Cordarone PO 200 mg BID [facility] Administration Aspirin 81 mg 11/26/17 10:15 12/08/17 08:24 Aspirin PO 81 mg DAILY [facility] Administration Atorvastatin Calcium 40 mg 11/26/17 09:00 12/08/17 08:25 Lipitor PO 40 mg DAILY [facility] Administration Benzocaine/Menthol 1 each 11/25/17 19:03 Cepacol Lozenge MUCOUS MEM Q2H PRN Sore Throat Bisacodyl 10 mg 11/26/17 17:52 Dulcolax RECTAL DAILY PRN Constipation Budesonide 1 mg 12/01/17 20:00 12/08/17 09:26 Pulmicort INHALATION 1 mg RT-BID [facility] Administration Escitalopram Oxalate 10 mg 12/07/17 21:00 12/07/17 20:10 Lexapro PO 10 mg HS [facility] Administration Piperacillin/Tazobactam/ 50 mls @ 12.5 mls/hr 12/04/17 16:00 12/08/17 16:11 Dextrose 3.375 gm/ IV Solution IVPB 12.5 mls/hr Q8HR [facility] Administration Sodium Chloride 1,000 mls @ 20 mls/hr 12/06/17 10:45 12/08/17 13:47 Saline 0.9% IV Not Given .Q24H [facility] Insulin Aspart 0 unit 12/02/17 21:00 12/08/17 17:46 Novolog SQ 1 unit ACHS [facility] Administration Protocol Magnesium Hydroxide 2,400 mg 11/26/17 17:53 Milk Of Magnesia PO BID PRN Constipation Metoprolol Tartrate 50 mg 12/06/17 21:00 12/08/17 08:24 Lopressor PO 50 mg BID [facility] Administration Miscellaneous Information 1 each 11/25/17 19:03 Magnesium Per Protocol MISCELLANE DAILY PRN Per Protocol Protocol Miscellaneous Information 1 each 11/25/17 19:03 Phosphorus Per Protocol MISCELLANE DAILY PRN Per Protocol Protocol Miscellaneous Information 1 each 11/25/17 19:03 Potassium Per Protocol MISCELLANE DAILY PRN Per Protocol Protocol Ondansetron HCl 4 mg 11/25/17 19:03 Zofran IVP Q6HR PRN Nausea And Vomiting Pantoprazole Sodium 40 mg 12/05/17 07:30 12/08/17 08:25 Protonix PO 40 mg AC-BRKFST [facility] Administration Senna/Docusate Sodium 2 each 11/26/17 21:00 12/07/17 20:16 Senokot-S PO 2 each HS [facility] Administration Sodium Chloride 10 ml 11/25/17 21:00 12/08/17 11:16 Saline Flush IV 10 ml BID [facility] Administration 12/09/17 Remains in sinus rhythm. mostly BiPAP dependent. Incentive spirometer up to 700 -750. Chest x-ray reporting improving moderate pleural effusion, cardiomegaly. Sternal wound culture positive for gram-negative bacilli. Maintained on Zosyn. Diet intake fair. Blood sugars controlled. Review systems unable to be performed as patient on BiPAP Active Medications Hydrocodone Bitart/Acetaminophen ([place] 5-325) 1 each PO Q4HR PRN PRN Reason: MILD TO MODERATE Pain Last Admin: 12/09/17 10:03 Dose: 1 each Hydrocodone Bitart/Acetaminophen ([place] 5-325) 2 each PO Q4HR PRN PRN Reason: MODERATE TO SEVERE Pain Last Admin: 12/09/17 14:51 Dose: 2 each Albuterol/Ipratropium (Duoneb 0.5 Mg-3 Mg/3 Ml Soln) 3 ml INHALATION RT-Q2H PRN PRN Reason: Shortness Of Breath Or Wheezing Last Admin: 12/08/17 05:16 Dose: 3 ml Albuterol/Ipratropium (Duoneb 0.5 Mg-3 Mg/3 Ml Soln) 3 ml INHALATION RT-QID [facility] Last Admin: 12/09/17 15:42 Dose: 3 ml Amiodarone HCl (Cordarone) 200 mg PO BID [facility] Last Admin: 12/09/17 08:12 Dose: 200 mg Aspirin (Aspirin) 81 mg PO DAILY [facility] Last Admin: 12/09/17 08:13 Dose: 81 mg Atorvastatin Calcium (Lipitor) 40 mg PO DAILY [facility] Last Admin: 12/09/17 08:13 Dose: 40 mg Benzocaine/Menthol (Cepacol Lozenge) 1 each MUCOUS MEM Q2H PRN PRN Reason: Sore Throat Bisacodyl (Dulcolax) 10 mg RECTAL DAILY PRN PRN Reason: Constipation Budesonide (Pulmicort) 1 mg INHALATION RT-BID [facility] Last Admin: 12/09/17 07:45 Dose: 1 mg Escitalopram Oxalate (Lexapro) 10 mg PO HS [facility] Last Admin: 12/08/17 20:33 Dose: 10 mg Piperacillin/Tazobactam/ (Dextrose 3.375 gm/ IV Solution) 50 mls @ 12.5 mls/hr IVPB Q8HR [facility] Last Admin: 12/09/17 08:16 Dose: 12.5 mls/hr Sodium Chloride (Saline 0.9%) 1,000 mls @ 20 mls/hr IV .Q24H [facility] Last Admin: 12/09/17 08:17 Dose: 20 mls/hr Insulin Aspart (Novolog) 0 unit SQ ACHS [facility] PRN Reason: Protocol Last Admin: 12/09/17 12:23 Dose: Not Given Magnesium Hydroxide (Milk Of Magnesia) 2,400 mg PO BID PRN PRN Reason: Constipation Metoprolol Tartrate (Lopressor) 50 mg PO BID [facility] Last Admin: 12/09/17 08:13 Dose: 50 mg Miscellaneous Information (Magnesium Per Protocol) 1 each MISCELLANE DAILY PRN ; Protocol PRN Reason: Per Protocol Miscellaneous Information (Phosphorus Per Protocol) 1 each MISCELLANE DAILY PRN ; Protocol PRN Reason: Per Protocol Miscellaneous Information (Potassium Per Protocol) 1 each MISCELLANE DAILY PRN ; Protocol PRN Reason: Per Protocol Ondansetron HCl (Zofran) 4 mg IVP Q6HR PRN PRN Reason: Nausea And Vomiting Pantoprazole Sodium (Protonix) 40 mg PO AC-BRKFST [facility] Last Admin: 12/09/17 08:11 Dose: 40 mg Senna/Docusate Sodium (Senokot-S) 2 each PO HS [facility] Last Admin: 12/08/17 20:37 Dose: 2 each Sodium Chloride (Saline Flush) 10 ml IV BID [facility] Last Admin: 12/09/17 08:13 Dose: 10 ml 12/13/17 maintained on Merrem and vancomycin. BiPAP dependent. Worsening chest x-ray, chest CT reporting near complete collapse of left lung, enlarging moderate to large pericardial effusion. Echo pending. Multiple episodes of diarrhea. Atrial flutter with RVR, Review systems unable to be performed as patient on BiPAP Active Medications Generic Name Dose Route Start Last Admin Trade Name Freq PRN Reason Stop Dose Admin Hydrocodone Bitart/Acetaminophen 1 each 12/01/17 12:20 12/13/17 08:08 [place] 5-325 PO 1 each Q4HR PRN Administration MILD TO MODERATE Pain Hydrocodone Bitart/Acetaminophen 2 each 12/01/17 12:20 12/13/17 15:08 [place] 5-325 PO 2 each Q4HR PRN Administration MODERATE TO SEVERE Pain Albuterol/Ipratropium 3 ml 11/26/17 17:53 12/08/17 05:16 Duoneb 0.5 Mg-3 Mg/3 Ml Soln INHALATION 3 ml RT-Q2H PRN Administration Shortness Of Breath Or Wheezing Albuterol/Ipratropium 3 ml 12/03/17 08:00 12/13/17 16:02 Duoneb 0.5 Mg-3 Mg/3 Ml Soln INHALATION Not Given RT-QID [facility] Amiodarone HCl 200 mg 12/11/17 20:00 12/13/17 09:12 Cordarone PO 200 mg BID@0800,2000 [facility] Administration Aspirin 81 mg 11/26/17 10:15 12/13/17 09:13 Aspirin PO 81 mg DAILY [facility] Administration Atorvastatin Calcium 40 mg 11/26/17 09:00 12/13/17 09:13 Lipitor PO 40 mg DAILY [facility] Administration Benzocaine/Menthol 1 each 11/25/17 19:03 Cepacol Lozenge MUCOUS MEM Q2H PRN Sore Throat Bisacodyl 10 mg 11/26/17 17:52 12/12/17 17:45 Dulcolax RECTAL 10 mg DAILY PRN Administration Constipation Budesonide 1 mg 12/01/17 20:00 12/13/17 07:46 Pulmicort INHALATION 1 mg RT-BID [facility] Administration Escitalopram Oxalate 10 mg 12/07/17 21:00 12/12/17 20:16 Lexapro PO 10 mg HS [facility] Administration Heparin Sodium (Porcine) 5,000 unit 12/10/17 16:00 12/13/17 09:14 Heparin SQ 5,000 unit Q8HR [facility] Administration Sodium Chloride 1,000 mls @ 20 mls/hr 12/06/17 10:45 12/13/17 09:49 Saline 0.9% IV 20 mls/hr .Q24H [facility] Administration Meropenem 1 gm/ Sodium 100 mls @ 100 mls/hr 12/09/17 22:00 12/13/17 09:46 Chloride IVPB 100 mls/hr Q8HR [facility] Administration Vancomycin HCl 1,750 mg/ 250 mls @ 125 mls/hr 12/13/17 14:00 12/13/17 14:15 Sodium Chloride IVPB 125 mls/hr Q12HR@0000,1200 [facility] Administration Insulin Aspart 0 unit 12/02/17 21:00 12/13/17 12:34 Novolog SQ Not Given ACHS [facility] Protocol Lactobacillus Acidoph/Bulgaricus 1 each 12/13/17 16:00 Lactinex PO TID [facility] Magnesium Hydroxide 2,400 mg 11/26/17 17:53 Milk Of Magnesia PO BID PRN Constipation Metoprolol Tartrate 50 mg 12/11/17 22:00 12/13/17 09:13 Lopressor PO 50 mg BID@1000,2200 [facility] Administration Miscellaneous Information 1 each 11/25/17 19:03 Magnesium Per Protocol MISCELLANE DAILY PRN Per Protocol Protocol Miscellaneous Information 1 each 11/25/17 19:03 Phosphorus Per Protocol MISCELLANE DAILY PRN Per Protocol Protocol Miscellaneous Information 1 each 11/25/17 19:03 Potassium Per Protocol MISCELLANE DAILY PRN Per Protocol Protocol Ondansetron HCl 4 mg 11/25/17 19:03 Zofran IVP Q6HR PRN Nausea And Vomiting Pantoprazole Sodium 40 mg 12/05/17 07:30 12/13/17 09:13 Protonix PO 40 mg AC-BRKFST [facility] Administration Senna/Docusate Sodium 2 each 11/26/17 21:00 12/12/17 20:16 Senokot-S PO 2 each HS [facility] Administration Sodium Chloride 10 ml 11/25/17 21:00 12/13/17 09:49 Saline Flush IV 10 ml BID [facility] Administration 12/14/17 maintained on Merrem and vancomycin per infectious disease .remains BiPAP dependent. Chest x-ray reporting persistent significant left lung collapse with minimal improvement. Scheduled for bronchoscopy this afternoon. INR 2.1, receiving FFP. No diarrhea today. Telemetry atrial fibrillation/ flutter, heart rate 110s to 120s. 12/15/2017 developed worsened respiratory distress despite BiPAP, diuretics, antiarrhythmics, intubated last night. Received 2 more units of FFP this morning, underwent bronchoscopy this morning; mucous plug discovered in the left lower lobe. Pleural Cultures pending. Maintained on FiO2 45%/+5 of PEEP. Continues on IV antibiotics. Currently on 2-1/2 mics of Levophed and diprovan drips. Atrial tachycardia, heart rate in the 130s. Amiodarone discontinued as per cardiology. Developed increased bleeding from wound VAC with turning during bath-Anticoagulation placed on hold. Afebrile. 12/16/17 remains vent dependent, FiO2 40%/+5 of PEEP. Sedated on Diprovan. Requiring low-dose of Levophed. Marginal urine output, received albumin last night. Tachycardia resolved, sinus rhythm per telemetry. Wound VAC dressing changed today, serosanguineous drainage. Bronchoscopy yesterday, cultures pending. Blood sugars controlled. 12/17/2017 today weaning trials of pressure support in increments of 3 hours , resting at night, FiO2 40%/+5 of PEEP. Chest x-ray reporting improvement. Currently on Levophed. Tolerating tube feeds at goal with minimal to no residual. Maintained on IV antibiotics as per infectious disease. Telemetry sinus rhythm. 12/20/17 remains vent dependent FiO2 40%/PEEP of 5. Yesterday vent weaning during the day hours, tolerated well. Wound VAC changed yesterday. Scheduled for sternal flap repair tomorrow. Maintained on IV antibiotics. T-max 99.4. Last night returned into rapid atrial flutter, Currently sinus rhythm. 12/21/2017 remains vent dependent. Telemetry sinus rhythm. Tube feeds on hold. Scheduled for sternal flap repair today. 12/22/2017 underwent flap repair/grafting yesterday with plastic surgeon. Pain controlled. Extubated this morning, maintained on BiPAP. Telemetry sinus rhythm. Albumin remains at 2.2, receiving albumin. 12/23/17 .Patient respiratory arrested while Dobbhoff attempting to be placed, returned into atrial fibrillation with RVR. Reintubated, converted back into sinus rhythm. Midsternal dressing being changed at bedside by cardiothoracic surgery. Trach and PEG being discussed as per pulmonary. 12/24/17 scheduled for tracheostomy this morning. Chest x-ray reporting progressive CHF change with bilateral effusions possible underlying pneumonia, ET tube 1 cm above osvaldo. Telemetry sinus rhythm. Levophed currently on hold. Objective - Vital Signs Vital signs: Vital Signs Temp 98.4 F 12/24/17 11:00 Pulse 83 12/24/17 12:05 Resp 20 12/24/17 11:00 BP 116/54 12/19/17 10:00 Pulse Ox 98 12/24/17 11:00 Intake & Output 12/23/17 12/24/17 12/24/17 18:59 06:59 18:59 Intake Total 953 1633.692 812.313 Output Total 1250 1585 260 Balance -297 48.692 552.313 Weight 111.5 kg 110.3 kg 110.3 kg Intake: IV 883 1016 629 Albumin Human 5% 250 ml 250 500 As IVPB .[facility] Rx#: [id number] Dextrose 5%-0.45% NaCl 1, 400 480 120 000 ml @ 40 mls/hr IV . Q24H [facility] Rx#:[id number] Fluconazole in NaCl,Iso- 100 100 Osm 200 mg In Saline 1 100ml.bag @ 100 mls/hr IVPB DAILY [facility] Rx#: [id number] Meropenem 1 gm In Sodium 100 100 Chloride 0.9% 100 ml @ 100 mls/hr IVPB Q8HR [facility] Rx#:[id number] Pressure Bag 33 36 9 Intake, IV Titration 97.692 143.313 Amount Norepinephrin 16 mg-0.9% 35.625 43.313 Ns Pmx 16 mg In 250 ml @ Titrate IV .Q0M [facility] Rx#: [id number] Propofol 1,000 mg In 62.067 100 Empty Bag 1 bag @ Titrate IV .Q0M [facility] Rx#: [id number] Tube Feeding 70 520 40 Output: Drainage 1020 1120 Medial Abdomen 900 1000 Right Abdomen 120 120 Urine 230 465 250 Estimated Blood Loss 10 Other: Voiding Method Indwelling Catheter Indwelling Catheter ABP, PAP, CO, CI - Last Documented Arterial Blood Pressure 155/68 Pulmonary Artery Pressure 38/33 Cardiac Output 5.8 Cardiac Index 2.9 - Exam PHYSICAL EXAM: VITAL SIGNS: As above GENERAL: Sitting up in bed, sedated on mechanical ventilation HEENT: Conjunctivae normal. eyes normal. NECK: No JVD. No thyroid enlargement. CARDIOVASCULAR: S1, S2 muffled , no gallops, no murmurs RESPIRATION: Breath sounds diminished in the bases,coarse. Sternal wound dressing present. ABDOMEN: Soft, right-sided abdominal dressing clean dry and intact with 2 HENRI drains with serous drainage, hypoactive bowel sounds Extremities: Positive mild edema PSYCHIATRY:/NERVOUS SYSTEM: Unable to assess as patient on mechanical ventilation Skin: Midsternal dressing clean dry and intact, right medial buttock & right buttock skin tears, type II Right lower arm Skin tear,type II, Lower back shearing Microbiology 12/10/17 10:50 Chest Acid Fast Bacilli Smear - Final 12/10/17 10:50 Chest Acid Fast Bacilli Culture - Preliminary 12/10/17 10:45 Chest Acid Fast Bacilli Smear - Final 12/10/17 10:45 Chest Acid Fast Bacilli Culture - Preliminary 12/15/17 10:40 Bronchial Washings - Left Fungal Culture - Preliminary Rachana albicans 12/10/17 10:40 Chest Fungal Culture - Preliminary 12/10/17 10:45 Chest Fungal Culture - Preliminary 12/10/17 10:50 Chest Fungal Culture - Preliminary 12/15/17 10:40 Bronchial Washings - Left Gram Stain - Final 12/15/17 10:40 Bronchial Washings - Left Bronchial Washings Culture - Final Rachana albicans 12/14/17 21:30 Sputum Gram Stain - Final 12/14/17 21:30 Sputum Sputum Culture - Final Rachana albicans 12/15/17 10:40 Bronchial Washings - Left Acid Fast Bacilli Smear - Final 12/15/17 10:40 Bronchial Washings - Left Acid Fast Bacilli Culture - Preliminary 12/10/17 10:50 Chest Anaerobic Culture - Final 12/10/17 10:40 Chest Anaerobic Culture - Final 12/10/17 10:45 Chest Anaerobic Culture - Final 12/13/17 05:27 Urine,Catheterized Urine Culture - Final 12/10/17 10:40 Chest Gram Stain - Final 12/10/17 10:40 Chest Wound Culture - Final Serratia marcescens 12/10/17 10:45 Chest Gram Stain - Final 12/10/17 10:45 Chest Tissue Culture - Final Serratia marcescens 12/10/17 10:50 Chest Gram Stain - Final 12/10/17 10:50 Chest Tissue Culture - Final Serratia marcescens 12/07/17 15:40 Chest Gram Stain - Final 12/07/17 15:40 Chest Wound Culture - Final Serratia marcescens 12/04/17 10:00 Urine,Voided Urine Culture - Final Escherichia coli Serratia marcescens 11/26/17 04:00 Sputum Gram Stain - Final 11/26/17 04:00 Sputum Sputum Culture - Final - Labs CBC & Chem 7: 03/23/18 04:23 12/24/17 04:23 Labs: Abnormal Lab Results - Last 24 Hours (Table) 12/23/17 12/24/17 12/24/17 Range/Units 15:32 03:58 04:23 WBC 13.5 H (3.8-10.6) k/uL RBC 2.84 L (3.80-5.40) m/uL Hgb 7.2 L (11.4-16.0) gm/dL Hct 25.2 L (34.0-46.0) % MCHC 28.6 L (31.0-37.0) g/dL RDW 19.6 H (11.5-15.5) % Neutrophils # 11.5 H (1.3-7.7) k/uL Lymphocytes # 0.9 L (1.0-4.8) k/uL ABG pH 7.28 L (7.35-7.45) ABG pCO2 62 H 47 H (35-45) mmHg ABG pO2 321 H 116 H (83-108) mmHg ABG HCO3 29 H 30 H (21-25) mmol/L ABG Total CO2 31 H 32 H (19-24) mmol/L ABG O2 Saturation 100.0 H 99.8 H (94-97) % BUN (7-17) mg/dL Glucose (74-99) mg/dL AST (14-36) U/L Alkaline Phosphatase (38-126) U/L Total Protein (6.3-8.2) g/dL Albumin (3.5-5.0) g/dL 12/24/17 Range/Units 04:23 WBC (3.8-10.6) k/uL RBC (3.80-5.40) m/uL Hgb (11.4-16.0) gm/dL Hct (34.0-46.0) % MCHC (31.0-37.0) g/dL RDW (11.5-15.5) % Neutrophils # (1.3-7.7) k/uL Lymphocytes # (1.0-4.8) k/uL ABG pH (7.35-7.45) ABG pCO2 (35-45) mmHg ABG pO2 (83-108) mmHg ABG HCO3 (21-25) mmol/L ABG Total CO2 (19-24) mmol/L ABG O2 Saturation (94-97) % BUN 37 H (7-17) mg/dL Glucose 107 H (74-99) mg/dL AST 79 H (14-36) U/L Alkaline Phosphatase 129 H (38-126) U/L Total Protein 5.6 L (6.3-8.2) g/dL Albumin 2.7 L (3.5-5.0) g/dL Assessment and Plan Assessment: 1. Status post CABG with mitral valve replacement 2. Acute blood loss anemia with massive blood transfusions postoperatively, in a patient with history of GI bleed 3. Hypertension 4. Left subclavian stenosis 5. Proximal atrial fibrillation/flutter status post cardioversion with recurrence of atrial fibrillation 6. Acute Hypoxic respiratory failure, Re intubated x2. 7. Obesity, BMI 41.6 8. S/P PICC line placement 9. 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 Acute UTI Serratia marcescens, E. coli 11. Bilateral pleural effusions, improved with diuretics. Possible aspiration pneumonia, possible fluid overload. 12. Sternal wound debridement, culture growing Serratia marcescens, status post wound VAC. Status post sternal flap grafting. 13. Pressure ulceration of back and buttocks, stage III 14. Diarrhea, ruling out C. difficile colitis. 15. Status post bronchoscopy with left lower lobe mucous plug discovered Plan: Continue on current medication regime , amiodarone, metoprolol , monitoring and symptomatic treatment. Tracheostomy scheduled for this morning. GI consulted for Dobbhoff placement. Maintain IV antibiotics, nebulized bronchodilators, steroids. Prognosis guarded given multiple complex medical issues. The impression and plan of care has been dictated as directed. : I performed a history and examination of this patient, discussed the same with the dictator. I agree with the dictator's note ,documented as a scribe. Any additional findings or plans will be noted.
[2017-12-24 13:51] LABS: Glucose,Whole Blood 96 mg/dL (75-99)
[2017-12-24] MEDS: VANCOMYCIN 1,500 MG in SODIUM CHLORIDE 0.9% 250 ML IVPB SCH (13:51)
--- NOTE | 2017-12-24 15:37 | OP ---
OPERATIVE REPORT DATE OF SURGERY: PREOPERATIVE DIAGNOSIS: Ventilator-dependent respiratory failure. POSTOPERATIVE DIAGNOSIS: Ventilator-dependent respiratory failure. PROCEDURE: Tracheostomy. SURGEON: Dion Back MD. INSULATION BLANKET MAKER: MIKAYLA Kang. ANESTHESIA: General. SPECIMENS: None. COMPLICATIONS: None. INDICATION: The patient is a 67-year-old female who underwent mitral valve replacement, maze procedure, and coronary artery bypass grafting several weeks ago. Her postoperative course has been complicated by sternal wound dehiscence, which required sternal debridement and muscle flap closure. The patient failed extubation and placement of a tracheostomy was recommended. The risks, benefits, alternatives to this procedure were discussed with the patient's daughter. All questions were answered. Consent was obtained. PROCEDURE IN DETAIL: The patient was taken to the operating room, placed supine on the operating table. A shoulder roll was placed and her neck was extended. Her arms were tucked. She was prepped and draped in the usual sterile fashion. Of note, her body habitus made access to the neck quite challenging. A cervical collar incision was created approximately 1 fingerbreadth above where the sternal notch would have been. Of note, she did have debridement of the sternum and still has an open wound though it is covered with muscle. Dissection was taken down through the platysma muscle. Staying in the midline, dissection continued through the subcutaneous tissue and the strap muscles were divided. The thyroid isthmus was identified. It was swept up superiorly to help gain some visualization and access to the trachea. The innominate artery was palpated at the base of the neck. A tracheal hook was placed under the 1st thyroid cartilage to help raise the trachea up into the field. An incision was created at the level of the 2nd tracheal ring horizontally. It was Teed off inferiorly. A Prolene suture was placed in each of the tracheal flaps to help stabilize opening. The ET tube was withdrawn by the anesthesia service under direct vision. When it was just proximal to the opening, the tracheal dilator was used and a #8 Shiley nonfenestrated tracheostomy tube was inserted directly into the trachea under direct vision. It was connected to the respiratory circuit and return of end-tidal CO2 was achieved. The wound appeared to be hemostatic. Surgicel was placed in the wound and will be taken out tomorrow. The tracheostomy flange was affixed to the skin with 2-0 Prolene sutures. A neck strap was placed. The patient appeared to tolerate the procedure well. There were no immediate complications. She returned to the ICU in stable condition. ELAN / MICHELLE: [id number] / [id number]
[2017-12-24 18:04] LABS: Glucose,Whole Blood 76 mg/dL (75-99)
[2017-12-24] MEDS: SENNOSIDES-DOCUSATE SODIUM 1 EACH TAB PO SCH (20:39)
[2017-12-24] MEDS: ESCITALOPRAM 10 MG TAB PO SCH (20:39)
[2017-12-24 21:30] LABS: Glucose,Whole Blood 82 mg/dL (75-99)
--- NOTE | 2017-12-24 23:04 | P.PN ---
Subjective Progress Note Date: 12/24/17 Principal diagnosis: Sternal wound dehiscence Pleasant 67-year-old female who has an extensive past medical history who is now 14 days postoperative from her open heart procedure it which point in time a mitral valve placement occurred, reverse saphenous vein coronary artery bypass grafting 1 to obtuse marginal, Maze procedure and ligation of the left atrial appendage all occurred interoperatively left ventricular wall tear occurred and was repaired. The patient has a known history of multiple medical troubles before her surgery that included her obesity, COPD and marked deconditioning. Patient has had difficulties recently that included urinary tract infection with E. coli and Serratia and has been treated with intravenous antibiotic therapy with Zosyn. She was having some improvement but then developed dehiscence of her sternal wound and there are plans for surgical debridement tomorrow wound culture showing gram-negative bacilli and with at the infectious diseases consultation was requested. The patient continues to have significant respiratory difficulties and is currently on BiPAP for support. Postoperatively the patient was hemodynamically unstable which made even turning of the patient not possible which has resulted in unavoidable areas of skin breakdown, that are now treatable given her improvement 12/10/2017 reveals the patient to be postoperative from the sternal wound debridement. The surgical note as well as discussion with the surgical team reveals evidence of poor bone quality and all of the sternal wires had pulled through her bony areas. Negative pressure therapy is in place. She is tolerating this well. Plastic surgery consult has been requested for reconstruction of her chest in the near future. Gram-negative bacilli growing from the sternal wound. She is quite comfortable after procedure, chest tube was placed of the left cavity and this is improved some left lung function and she seems less short of breath. The daughter is present and her questions were answered. 12/11/2017 reveals the patient to have had some respiratory distress today and is back on BiPAP at this time. She relates that her pain is under much significant control. Been no other new acute complaints are being made. 12/13/2017 the patient remains in the ICU she is currently on BiPAP but relates that she is quite comfortable. We will work with the nursing staff to change her VAC dressing at this time. await the plastic surgery timeline. 12/15/2017 reveals the patient to remain in intensive care unit, her status has worsened and that she developed flash pulmonary edema and respiratory failure requiring reintubation sedation mechanical ventilation. She underwent bronchoscopy today for removal of mucous plugs and to help with the collapsed left lower lobe. The patient has require some vasopressor support but is more stable this afternoon than earlier. She is sedated and comfortable. She has significant decline of hemoglobin is 7.6. Anticoagulation was held. Is being closely monitored by surgery and they await the plastic surgery intervention. 12/16/2017 cases briefly discussed with the cardiothoracic nurse practitioner in that the wound VAC is being changed today. It is unchanged with no difficulties. No further bleeding is noted. Plastic surgery evaluation apparently will occur tomorrow so the surgical plan can be devised. 12/20/2017 since last visit current thoracic has again change the wound VAC without difficulties. She tolerated it well. She remains on the ventilator at this point in time, does not appear to have any plans for weaning because she will have her plastic closure over open chest tomorrow. She's been hemodynamically stable with intermittent atrial flutter. No significant changes of oxygen requirements, drainage from the wound VAC is minimal as is drainage from her chest tube. 12/21/2017 patient is status post the partial plastic closure of her sternal wound. Complete cardiac coverage occurred but only partial closure was possible. Oxygen requirements are improving postoperative and is being closely watched for any further blood loss anemia. 12/23/2017 reveals the patient to be extubated on BiPAP. She is comfortable with her pain level is about a 2. Shortness of breath is not severe. She is unable to eat and a Dobbhoff will be placed a bit later today to help her with nutritional status to help her recovery. The current situation is discussed with the cardiothoracic surgeon team 12/24/2017 reveals evidence of the changes status in that she has now had a tracheostomy applied due to her chronic respiratory failure. Cardiothoracic surgery has changed the dressing today. Patient is comfortable after her surgery. Denies new acute discomforts. Objective - Vital Signs Vital signs: Vital Signs Temp 98 F 12/24/17 21:00 Pulse 76 12/24/17 22:00 Resp 19 12/24/17 22:00 BP 116/54 12/19/17 10:00 Pulse Ox 100 12/24/17 22:00 Intake & Output 12/24/17 12/24/17 12/25/17 06:59 18:59 06:59 Intake Total 1178.656 7534.715 212 Output Total 1585 970 550 Balance 48.692 311.715 -338 Weight 110.3 kg 110.3 kg Intake: IV 1016 1037 172 Albumin Human 25% 50 ml 50 In Empty Bag 1 bag @ 100 mls/hr IVPB ONCE ONE Rx#: [id number] Albumin Human 5% 250 ml 500 As IVPB .STK-MED ONE Rx#: [id number] Dextrose 5%-0.45% NaCl 1, 480 360 160 000 ml @ 40 mls/hr IV . Q24H [facility] Rx#:[id number] Fluconazole in NaCl,Iso- 100 Osm 200 mg In Saline 1 100ml.bag @ 100 mls/hr IVPB DAILY [facility] Rx#: [id number] Meropenem 1 gm In Sodium 200 Chloride 0.9% 100 ml @ 100 mls/hr IVPB Q8HR [facility] Rx#:[id number] Pressure Bag 36 27 12 Intake, IV Titration 97.692 204.715 Amount Norepinephrin 16 mg-0.9% 35.625 50.407 Ns Pmx 16 mg In 250 ml @ Titrate IV .Q0M [facility] Rx#: [id number] Propofol 1,000 mg In 62.067 154.308 Empty Bag 1 bag @ Titrate IV .Q0M [facility] Rx#: [id number] Tube Feeding 520 40 40 Output: Drainage 1120 295 295 Medial Abdomen 1000 40 Right Abdomen 120 255 295 Urine 465 665 255 Estimated Blood Loss 10 Other: Voiding Method Indwelling Catheter Indwelling Catheter Indwelling Catheter # Bowel Movements 1 ABP, PAP, CO, CI - Last Documented Arterial Blood Pressure 107/46 Pulmonary Artery Pressure 38/33 Cardiac Output 5.8 Cardiac Index 2.9 - Exam Obese 67-year-old woman who is now extubated on BiPAP HEENT: Anicteric conjunctiva are pink and moist nasal mucosa grossly intact without significant lesions, there is no thrush. Oral mucosa is dry but no swapnil lesions could be seen Neck: The neck is supple without significant lymphadenopathy or thyromegaly. Tracheostomy intact without bleeding Lungs: Symmetrical air entry is noted. There is scattered crackles but no swapnil bronchial sounds Heart: Irregular with an audible S1 and S2 soft S4 no audible murmur no click or rub Chest: The patient's mid sternotomy incision is now covered with a postoperative dressing from the plastic closure which is reported to be a partial flap closure Abdomen: Obese, Positive bowel sounds soft and nontender without palpable masses or organomegaly. There was no guarding or rebound. Extremities: The upper and lower extremities have evidence of edema harvest site is intact there is some bruising that is noted especially on the left groin area. IV sites are intact. Skin: With the nursing staff the buttocks pressure ulcerations are evaluated which are showing improvement. The ulceration on the skin fold above her buttocks is also evaluated and appears to be improving. Also improvement of the ulceration to the right wrist area. Skin however is now having some blistering due to her hypoalbuminemia and excessive volume. Sternal wound dressing is dry and intact. Neuro: Comfortable at this time after her tracheostomy. - Labs CBC & Chem 7: 12/24/17 04:23 12/24/17 18:45 Labs: Abnormal Lab Results - Last 24 Hours (Table) 12/24/17 12/24/17 12/24/17 Range/Units 03:58 04:23 04:23 WBC 13.5 H (3.8-10.6) k/uL RBC 2.84 L (3.80-5.40) m/uL Hgb 7.2 L (11.4-16.0) gm/dL Hct 25.2 L (34.0-46.0) % MCHC 28.6 L (31.0-37.0) g/dL RDW 19.6 H (11.5-15.5) % Neutrophils # 11.5 H (1.3-7.7) k/uL Lymphocytes # 0.9 L (1.0-4.8) k/uL ABG pCO2 47 H (35-45) mmHg ABG pO2 116 H (83-108) mmHg ABG HCO3 30 H (21-25) mmol/L ABG Total CO2 32 H (19-24) mmol/L ABG O2 Saturation 99.8 H (94-97) % BUN 37 H (7-17) mg/dL Glucose 107 H (74-99) mg/dL AST 79 H (14-36) U/L Alkaline Phosphatase 129 H (38-126) U/L Total Protein 5.6 L (6.3-8.2) g/dL Albumin 2.7 L (3.5-5.0) g/dL Microbiology - Last 24 Hours (Table) 12/24/17 11:30 Catheter Tip Culture - Preliminary Catheter Tip Laboratory Results WBC 13.5 k/uL (3.8-10.6) H 12/24/17 04:23 RBC 2.84 m/uL (3.80-5.40) L 12/24/17 04:23 Hgb 7.2 gm/dL (11.4-16.0) L 12/24/17 04:23 Hct 25.2 % (34.0-46.0) L 12/24/17 04:23 MCV 88.9 fL (80.0-100.0) 12/24/17 04:23 MCH 25.4 pg (25.0-35.0) 12/24/17 04:23 MCHC 28.6 g/dL (31.0-37.0) L 12/24/17 04:23 RDW 19.6 % (11.5-15.5) H 12/24/17 04:23 Plt Count 288 k/uL (150-450) 12/24/17 04:23 Neutrophils % 86 % 12/24/17 04:23 Neutrophils % (Manual) 98 % 12/05/17 04:25 Lymphocytes % 7 % 12/24/17 04:23 Lymphocytes % (Manual) 1 % 12/05/17 04:25 Monocytes % 5 % 12/24/17 04:23 Monocytes % (Manual) 1 % 12/05/17 04:25 Eosinophils % 1 % 12/24/17 04:23 Basophils % 0 % 12/24/17 04:23 Myelocytes % 1 % 12/03/17 04:15 Neutrophils # 11.5 k/uL (1.3-7.7) H 12/24/17 04:23 Neutrophils # (Manual) 26.95 k/uL (1.3-7.7) H 12/05/17 04:25 Lymphocytes # 0.9 k/uL (1.0-4.8) L 12/24/17 04:23 Lymphocytes # (Manual) 0.28 k/uL (1.0-4.8) L 12/05/17 04:25 Monocytes # 0.6 k/uL (0-1.0) 12/24/17 04:23 Monocytes # (Manual) 0.28 k/uL (0-1.0) 12/05/17 04:25 Eosinophils # 0.2 k/uL (0-0.7) 12/24/17 04:23 Basophils # 0.0 k/uL (0-0.2) 12/24/17 04:23 Myelocytes # (Manual) 0.17 k/uL (0) H 12/03/17 04:15 Nucleated RBCs 0 /100 WBC (0-0) 12/05/17 04:25 Manual Slide Review Performed 12/05/17 04:25 Polychromasia Present 12/03/17 04:15 Hypochromasia Marked 12/24/17 04:23 Poikilocytosis Slight 12/24/17 04:23 Anisocytosis Slight 12/24/17 04:23 Microcytosis Slight 12/17/17 04:45 Target Cells Present 12/03/17 04:15 PT 10.8 sec (9.0-12.0) 12/21/17 04:50 INR 1.1 (<1.2) 12/21/17 04:50 APTT 23.9 sec (22.0-30.0) 12/21/17 04:50 Fibrinogen 334 mg/dL (200-500) 11/26/17 04:22 Sample Site [place] 12/24/17 03:58 ABG pH 7.41 (7.35-7.45) 12/24/17 03:58 ABG pCO2 47 mmHg (35-45) H 12/24/17 03:58 ABG pO2 116 mmHg (83-108) H 12/24/17 03:58 ABG HCO3 30 mmol/L (21-25) H 12/24/17 03:58 ABG Total CO2 32 mmol/L (19-24) H 12/24/17 03:58 ABG O2 Saturation 99.8 % (94-97) H 12/24/17 03:58 ABG Base Excess 5.5 mmol/L 12/24/17 03:58 ABG Hematocrit 24 % (34.0-46.0) L 11/25/17 17:37 Robbi Test no 12/24/17 03:58 ABG Sodium 144 mmol/L (135-146) 11/25/17 17:37 ABG Potassium 3.8 mmol/L (3.4-4.5) 11/25/17 17:37 ABG Ionized Calcium 4.0 mg/dL (4.5-5.3) L 11/25/17 17:37 ABG Glucose 139 mg/dL (75-99) H 11/25/17 17:37 ABG Lactic Acid 2.8 mmol/L (0.5-1.6) H* 11/25/17 17:37 Hemoglobin 7.8 gm/dL (11.4-16.0) L 11/25/17 17:37 FiO2 40 % 12/24/17 03:58 Sodium 145 mmol/L (137-145) 12/24/17 04:23 Potassium 3.6 mmol/L (3.5-5.1) 12/24/17 18:45 Chloride 104 mmol/L (98-107) 12/24/17 04:23 Carbon Dioxide 30 mmol/L (22-30) 12/24/17 04:23 Anion Gap 11 mmol/L 12/24/17 04:23 BUN 37 mg/dL (7-17) H 12/24/17 04:23 Creatinine 0.70 mg/dL (0.52-1.04) 12/24/17 04:23 Est GFR (MDRD) Af Amer >60 (>60 ml/min/1.73 sqM) 12/07/17 04:00 Est GFR (MDRD) Non-Af >60 (>60 ml/min/1.73 sqM) 12/07/17 04:00 Est GFR (CKD-EPI)AfAm >90 (>60 ml/min/1.73 sqM) 12/24/17 04:23 Est GFR (CKD-EPI)NonAf 90 (>60 ml/min/1.73 sqM) 12/24/17 04:23 Glucose 107 mg/dL (74-99) H 12/24/17 04:23 POC Glucose (mg/dL) 82 mg/dL (75-99) 12/24/17 21:29 POC Glu Charge Master Coordinator ID Freda Swanson 12/24/17 21:29 Calcium 8.5 mg/dL (8.4-10.2) 12/24/17 04:23 Ionized Calcium Bruce 4.7 mg/dL (4.5-5.3) 12/11/17 15:45 Phosphorus 3.1 mg/dL (2.5-4.5) 12/24/17 04:23 Magnesium 2.2 mg/dL (1.6-2.3) 12/24/17 04:23 Total Bilirubin 0.7 mg/dL (0.2-1.3) 12/24/17 04:23 AST 79 U/L (14-36) H 12/24/17 04:23 ALT 51 U/L (9-52) 12/24/17 04:23 Alkaline Phosphatase 129 U/L (38-126) H 12/24/17 04:23 Total Protein 5.6 g/dL (6.3-8.2) L 12/24/17 04:23 Albumin 2.7 g/dL (3.5-5.0) L 12/24/17 04:23 Arterial Blood Potassium 3.8 mmol/L (3.4-4.5) 11/25/17 17:37 Arterial Blood Glucose 139 mg/dL (75-99) H 11/25/17 17:37 Urine Color Yellow 12/04/17 10:00 Urine Appearance Cloudy (Clear) H 12/04/17 10:00 Urine pH 5.5 (5.0-8.0) 12/04/17 10:00 Ur Specific [place] 1.015 (1.001-1.035) 12/04/17 10:00 Urine Protein Trace (Negative) H 12/04/17 10:00 Urine Glucose (UA) Negative (Negative) 12/04/17 10:00 Urine Ketones Negative (Negative) 12/04/17 10:00 Urine Blood Negative (Negative) 12/04/17 10:00 Urine Nitrite Negative (Negative) 12/04/17 10:00 Urine Bilirubin Negative (Negative) 12/04/17 10:00 Urine Urobilinogen <2.0 mg/dL (<2.0) 12/04/17 10:00 Ur Leukocyte Esterase Negative (Negative) 12/04/17 10:00 Urine RBC 7 /hpf (0-5) H 12/04/17 10:00 Urine WBC 1 /hpf (0-5) 12/04/17 10:00 Ur Squamous Epith Cells 8 /hpf (0-4) H 12/04/17 10:00 Urine Bacteria Occasional /hpf (None) H 12/04/17 10:00 Urine Mucus Rare /hpf (None) H 12/04/17 10:00 Fluid Source Bronchial Wash 12/15/17 10:40 Fluid Color Colorless 12/15/17 10:40 Fluid Appearance Cloudy 12/15/17 10:40 Fluid RBC 150 /uL 12/15/17 10:40 Fluid Nucleated Cells 6900 /uL 12/15/17 10:40 Fluid Polynuclear WBCs 95 % 12/15/17 10:40 Fluid Mononuclear WBCs 5 % 12/15/17 10:40 Vancomycin Trough 17.3 ug/mL 12/22/17 11:45 Random Vancomycin 21.2 ug/mL 12/16/17 04:15 Heparin-Ind Plt Ab Scrn 0.231 OD (<0.4) 11/29/17 04:50 Virus Source See Below 12/15/17 10:40 Viral Test See Below 12/15/17 10:40 Virus Analysis Interp See Below 12/15/17 10:40 Blood Type A Positive 12/21/17 11:28 Blood Type Recheck No 12/21/17 11:28 Antibody Screen NEGATIVE 12/21/17 11:28 Crossmatch See Detail 12/14/17 10:10 Transfuse Cryo [id number] 11/26/17 00:39 Transfuse Plasma 12/15/2017 12/15/17 05:51 Transfuse Platelets [id number] 11/25/17 14:55 Spec Expiration Date 12/24/2017 - 232712/21/17 11:28 Microbiology 12/24/17 11:30 Catheter Tip Catheter Tip Culture - Preliminary Microbiology 12/24/17 11:30 Catheter Tip Catheter Tip Culture - Preliminary 12/10/17 10:50 Chest Acid Fast Bacilli Smear - Final 12/10/17 10:50 Chest Acid Fast Bacilli Culture - Preliminary 12/10/17 10:45 Chest Acid Fast Bacilli Smear - Final 12/10/17 10:45 Chest Acid Fast Bacilli Culture - Preliminary 12/15/17 10:40 Bronchial Washings - Left Fungal Culture - Preliminary Rachana albicans 12/10/17 10:40 Chest Fungal Culture - Preliminary 12/10/17 10:45 Chest Fungal Culture - Preliminary 12/10/17 10:50 Chest Fungal Culture - Preliminary 12/15/17 10:40 Bronchial Washings - Left Gram Stain - Final 12/15/17 10:40 Bronchial Washings - Left Bronchial Washings Culture - Final Rachana albicans 12/14/17 21:30 Sputum Gram Stain - Final 12/14/17 21:30 Sputum Sputum Culture - Final Rachana albicans 12/15/17 10:40 Bronchial Washings - Left Acid Fast Bacilli Smear - Final 12/15/17 10:40 Bronchial Washings - Left Acid Fast Bacilli Culture - Preliminary 12/10/17 10:50 Chest Anaerobic Culture - Final 12/10/17 10:40 Chest Anaerobic Culture - Final 12/10/17 10:45 Chest Anaerobic Culture - Final 12/13/17 05:27 Urine,Catheterized Urine Culture - Final 12/10/17 10:40 Chest Gram Stain - Final 12/10/17 10:40 Chest Wound Culture - Final Serratia marcescens 12/10/17 10:45 Chest Gram Stain - Final 12/10/17 10:45 Chest Tissue Culture - Final Serratia marcescens 12/10/17 10:50 Chest Gram Stain - Final 12/10/17 10:50 Chest Tissue Culture - Final Serratia marcescens 12/07/17 15:40 Chest Gram Stain - Final 12/07/17 15:40 Chest Wound Culture - Final Serratia marcescens 12/04/17 10:00 Urine,Voided Urine Culture - Final Escherichia coli Serratia marcescens 11/26/17 04:00 Sputum Gram Stain - Final 11/26/17 04:00 Sputum Sputum Culture - Final Assessment and Plan (1) Severe mitral regurgitation Current Visit: Yes Status: Chronic Code(s): I34.0 - NONRHEUMATIC MITRAL ( VALVE) INSUFFICIENCY SNOMED Code(s): 19529797 (2) CAD (coronary artery disease) Current Visit: Yes Status: Chronic Code(s): I25.10 - ATHSCL HEART DISEASE OF [place] CORONARY ARTERY W/O ANG PCTRS SNOMED Code(s): 41983579 (3) Acute blood loss as cause of postoperative anemia Current Visit: Yes Status: Acute Code(s): D62 - ACUTE POSTHEMORRHAGIC ANEMIA SNOMED Code(s): 55377371487969298 (4) Pressure ulcer of contiguous region involving back and buttock, stage 3 Current Visit: Yes Status: Acute Code(s): L89.43 - PRESSR ULCER OF CONTIG SITE OF BACK, BUTTOCK AND HIP, STG 3 SNOMED Code(s): 218649682 (5) Sternal wound dehiscence Narrative/Plan: 67-year-old woman presents to Hospital for treatment of her severe mitral irritation. Underwent mitral valve replacement, coronary artery bypass grafting 1, Maze procedure and clipping of the left atrial appendage with a complication of the left ventricular wall tear. The patient has had a very protracted recovery she is now day 14 post operative and is still having difficulty with her respiratory status requiring BiPAP. The patient's nutritional status and underlying comorbidities have complicated her care. She now has evidence of the sternal dehiscence with evidence of gram negatives bacilli being found at the site. There is evidence of urinary tract infection with E. coli and Serratia. This Serratia species is somewhat resistant and consequently we'll alter the current antimicrobial therapy from Zosyn to meropenem to ensure coverage for other potential pathogens that are resistant that could be in the sternal wound while we await cultures. The patient will be going to the operating room tomorrow for debridement and wound VAC placement. The cultures were further direct the overall course of antibiotics. Urinary infection appears to be doing somewhat better. The patient fortunately is comfortable and doing well with her BiPAP. 12/10/2017 the patient is status post surgery and actually is feeling a bit better this afternoon than yesterday. Her pain is quite well controlled. She is not on BiPAP. She is less short of breath. Wound culture has verified the Serratia marcescens to the sternal wound. We'll constantly continue the current course of meropenem due to some of the resistance patterns or seeing with the species. Continue local care at this point time with the negative pressure system to the sternal wound. The plastic surgery consult is being requested for reconstruction of her chest. She will require a course of intravenous antibiotic therapy given her complex infection. Dual-lumen PICC is already in place. We'll repeat the discharge planners as to her place of rehab. 12/11/2017 the patient is metabolically stable but is having difficulties with her respiratory status and is now back on BiPAP which has been intermittent over the last multiple days. Negative pressure therapy remains intact and the sternum and we await the plastic surgery intervention. 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 Continue supportive care, and nutritional supplements as possible to improve for tissue healing. 12/13/2017 patient is on BiPAP. She is comfortable at this time. Receiving her intravenous antibiotic therapy without difficulties. At this time the surgeon present in a sterile fashion the wound VAC is removed. Surgeon evaluates and then the wound VAC is reapplied with 2 of the white foam, periwound protected with DuoDERM no difficulty with the seal. Merrem continues. 12/15/2017 the patient has had marked worsening of her status in that she had respiratory failure requiring reintubation and mechanical ventilation. She is now sedated and comfortable but has had some hemodynamic instability and is now back on vasopressor therapy. Bronchoscopy is performed and suctioning of mucous plugs as allowed some improvement of her pulmonary status. Further cultures are process. Meropenem and vancomycin continue for the isolated Serratia and concerns for resistant gram-positive infection at this time. Plastic surgery evaluation is in process and surgical plans for later this week appear to be possible. 12/16/2017 reveals the patient to be stable from the last 24 hours. Her ventilatory settings are similar. She's currently not on vasopressor therapy. She is tolerating current antibiotic therapy well with no difficulties with rash and diarrhea or marked changes of her hematological parameters. She's had no further active bleeding. Sputum culture with gram-positive cocci seen vancomycin was added we await final cultures. 12/20/2017 patient remained stable and is being prepped for her sternal reconstruction surgery tomorrow. She's not on vasopressor therapy, and vent settings are stable. Most recent bronchoscopy showed mucous plug no evidence of any new pathogens except yeast was found likely from upper airways. Fluconazole was added given her significant risks, although fungal pneumonia is not occurring at this time. At the time of reconstruction repeat samplings from her sternum will be helpful to help direct the course of antibiotic therapy , pathology and culture of the sternum will be helpful. Remains on the meropenem and vancomycin at this time. 12/21/2017 the patient is status post the sternal reconstruction with muscle flap, reportedly is only a partial closure at this time. However visit. The cardiac structure is completely covered. The patient is showing improvement in her cardiopulmonary status today. No active bleeding is noted. She is tolerating current antibiotic therapy well with meropenem and vancomycin. Await final culture and pathological data to help derive the course of her antibiotic therapy 12/23/2017 reveals the patient to be improved, she has been extubated and tolerating BiPAP well. The case is discussed with the cardiothoracic surgeon. The muscle flap was then performed and there is a biological skin substitute over the flap. She related that the plastic surgeon would not allow a wound VAC to be placed for approximately 10 days after the surgery. We will monitor. Continue current antibiotic therapy planning a multiweek course of therapy for the complex sternal wound infection. 12/24/2017 reveals the patient to have further improvement that she has had a tracheostomy placed. This will hopefully help her long-term weaning situation and also help with the nutritional difficulties. As she has improvement of her status hopefully the significant difference with her skin from the edema low albumin and blistering will improve. Receiving extensive antibiotic therapy for the sternal wound dehiscence will continue with the meropenem and vancomycin at this time. Current Visit: Yes Status: Acute Code(s): T81.32XA - DISRUPTION OF INTERNAL OPERATION (SURGICAL) WOUND, NEC, INIT SNOMED Code(s): 97060071
[2017-12-24 23:57] LABS: Glucose,Whole Blood 94 mg/dL (75-99)
[2017-12-25] MEDS: METOPROLOL TARTRATE 5 MG/5 ML VIAL IVP SCH ×4 (02:41→18:38)
[2017-12-25] MEDS: IPRATROPIUM-ALBUTEROL 3 ML NEB INHALATION SCH ×6 (03:34→23:40)
[2017-12-25 04:59] LABS: Anisocytosis Slight; Basophils % (A) 0 %; Eosinophils # (A) 0.2 k/uL (0-0.7); Eosinophils % (A) 2 %; HGB 7.2 gm/dL (11.4-16.0); Hypochromasia Marked; Lymphocytes # (A) 0.6 k/uL (1.0-4.8); Lymphocytes % (A) 7 %; MCH 26.3 pg (25.0-35.0); MCHC 30.2 g/dL (31.0-37.0); MCV 87.3 fL (80.0-100.0); Mean Platelet Volume 7.9; Monocytes # (A) 0.3 k/uL (0-1.0); Monocytes % (A) 4 %; Neutrophils # (A) 7.1 k/uL (1.3-7.7); Neutrophils % (A) 85 %; Platelet Count 311 k/uL (150-450); Poikilocytosis Moderate; RBC 2.75 m/uL (3.80-5.40); RDW 19.5 % (11.5-15.5); WBC 8.3 k/uL (3.8-10.6)
[2017-12-25 05:25] LABS: Albumin 2.3 g/dL (3.5-5.0); Calcium 8.4 mg/dL (8.4-10.2); Potassium 3.5 mmol/L (3.5-5.1); Total Bilirubin 0.7 mg/dL (0.2-1.3)
[2017-12-25 05:29] LABS: ABG Base Excess 6.9 mmol/L; ABG HCO3 31 mmol/L (21-25); ABG Oxygen Saturation 99.1 % (94-97); ABG PCO2 41 mmHg (35-45); ABG PH 7.48 (7.35-7.45); ABG PO2 109 mmHg (83-108); ABG TCO2 32 mmol/L (19-24)
[2017-12-25] MEDS: INSULIN ASPART 100 UNIT/ML 1 ML 10 ML VIAL SQ SCH ×3 (06:17→18:23)
[2017-12-25] MEDS ORDERED: Potassium Replacement Protocol 1 EACH MISC MISCELLANE PRN (06:18)
[2017-12-25 06:24] LABS: Glucose,Whole Blood 75 mg/dL (75-99)
--- NOTE | 2017-12-25 06:47 | XR ---
EXAMINATION TYPE: XR chest 1V portable DATE OF EXAM: 12/25/2017 HISTORY: cardiac surgery. REFERENCE: Previous study dated 12/24/2017. FINDINGS: A tracheostomy tube is in place. Its tip overlies the tracheal air column in this single fr ontal projection. There has been thoracic surgery. The heart is enlarged. There is vascular congestion and pulmonary edema. I suspect small effusions. IMPRESSION: FINDINGS CONSISTENT WITH WORSENING CONGESTIVE HEART FAILURE.
[2017-12-25] MEDS ORDERED: POTASSIUM CHLORIDE 20 MEQ in WATER FOR INJECTION 1 100ML.BAG IVPB ONE (07:00)
[2017-12-25] MEDS: BUDESONIDE 1 MG/2 ML NEBU INHALATION SCH ×2 (07:50→20:11)
[2017-12-25] MEDS: MEROPENEM 1 GM in SODIUM CHLORIDE 0.9% 100 ML IVPB SCH ×3 (07:51→23:49)
[2017-12-25] MEDS: CHLORHEXIDINE GLUCONATE 15 ML CUP MUCOUS MEM SCH ×2 (07:52→21:45)
[2017-12-25] MEDS: HEPARIN SODIUM,PORCINE 5,000 UNIT/ML 1 ML VIAL SQ SCH ×3 (07:52→23:49)
[2017-12-25] MEDS: FLUCONAZOLE IN NACL,ISO-OSM 200 MG in SALINE 1 100ML.BAG IVPB SCH (07:53)
[2017-12-25] MEDS ORDERED: LIDOCAINE 1% INJ 10MG/ML (20 ML MDV) ONE (09:08)
[2017-12-25] MEDS ORDERED: PHENYLEPHRINE-0.9% NACL SYG 1 MG/10 ML SYRINGE ONE (09:08)
[2017-12-25] MEDS ORDERED: PROPOFOL 10 MG/ML 20 ML VIAL IV ONE (09:08)
[2017-12-25] MEDS: ATORVASTATIN 40 MG TAB PO SCH (10:02)
[2017-12-25] MEDS: ASPIRIN 81 MG PO SCH (10:02)
[2017-12-25] MEDS: AMIODARONE 200 MG TAB PO SCH (10:02)
[2017-12-25] MEDS: PANTOPRAZOLE 40 MG TABLET PO SCH (10:02)
--- NOTE | 2017-12-25 10:15 | P.PCN ---
Date of Procedure: 12/25/17 Procedure(s) Performed: BRIEF HISTORY: Patient is a 67-year-old, white female status post CABG and mitral valve replacement about 3 weeks ago remains in an intensive care unit presently underwent an status post tracheostomy tube placement yesterday. She is scheduled for an upper endoscopy with a Dobbhoff tube placement today. PROCEDURE PERFORMED: Esophagogastroduodenoscopy with Dobbhoff tube placement PREOPERATIVE DIAGNOSIS: Dysphagia. IV sedation per anesthesia. PROCEDURE: After informed consent was obtained, the was procedure was performed in the intensive care unit at the bedside. Patient presently on the vent and sedated.. Initially the Olympus GIF-140 video endoscope was inserted into the mouth. Esophagus intubated without any difficulty. It was gradually advanced into the stomach and duodenum and carefully examined. The bulb and the second part of the duodenum appeared normal. The scope at this time was withdrawn to the stomach, adequately insufflated with air, and upon careful examination, mucosa of the antrum, body, cardia and the fundus appeared normal. The scope was then withdrawn into the esophagus. The GE junction was located at 39 cm from the incisors. The esophagus appeared normal. There were no erosions or ulcerations seen and the patient tolerated the procedure well. At this time the scope was positioned at the pyriform sinuses. The Dobbhoff tube was gently passed from the right nostril and was gradually advanced into the esophagus under direct guidance and was gently advanced into the stomach and placed close to the pyloric area. The scope was withdrawn and the patient tolerated the procedure well IMPRESSION: 1. Successful Dobbhoff tube placement as described above. 2. Normal-appearing esophagus, stomach and duodenum. RECOMMENDATIONS: The findings of this examination were discussed with the patient family. The Dobbhoff tube can be used for feeding today..
[2017-12-25] MEDS ORDERED: FUROSEMIDE 10 MG/ML 4 ML VIAL IV STA (10:44)
--- NOTE | 2017-12-25 10:45 | P.PN ---
Subjective Progress Note Date: 12/25/17 Principal diagnosis: Status post 1 vessel bypass grafting and mitral valve replacement. Progress note dated 12/20/2017 This is a 67-year-old female here in the hospital since November 25. The patient had a one-vessel bypass on the any mitral valve repair/replacement as well as a modified maze procedure on the . She was initially extubated on November 30 of BiPAP. When I left her last, which was on December 04, she was postop day #8 status post bypass grafting and mitral valve replacement. She seemed to do pretty well at that time on BiPAP therapy. Since that time, she's had a cardioversion on December 07 a dehiscence of her sternal wound on December 08 and a sister neck to me on December 10. She currently remains intubated. She has been on PSV 10 CPAP and yesterday she spent 10-12 hours on the settings. She apparently is going for a flap repair on December 21 which is tomorrow. She's getting saline IV at KVO and vital high protein at 40. Her vent settings include the assist control mode rate of 14 tidal volume 500 FiO2 40% PEEP of 5. Arterial blood gases show a PaO2 of 108 a PaCO2 of 45 and a pH of 7.47. I'm inclined not to wean her today given the fact that she'll be going for a flap repair tomorrow. In addition, her respiratory rates a bit high in her heart rate is high. We will go do a daily interruption of sedation and attempt a spontaneous breathing trial. Progress note dated 12/21/2017 This is a 67-year-old female here in the hospital since . The patient had a one-vessel bypass on the and mitral valve replacement. She also had a modified maze procedure on the same day. She was initially extubated on 2 BiPAP. When I left her last, she was doing recently well on and off of BiPAP. Currently, the patient is going to the operating room today for a flap repair to be done by the plastic surgeon. The patient had a cardioversion on December 07, a dehiscence of her sternal incision on December 08, and a sternectomy on December 10. Currently, she is on the assist control mode with a tidal volume 500, a rate of 14, and FiO2 of 40% to be reduced down to 30%, and a PEEP of 5. Arterial blood gases show a PaO2 of 148, a PaCO2 of 36 and a pH of 7.49. The patient's on a saline IV at 20 mL an hour, propofol at 30 mics per kilogram per minute tube feeds which are on hold for the surgery. Again she is going to have a flap repair today. Chest x-ray shows similar changes to yesterday. Progress note dated 12/22/2017 67-year-old female who's been in the hospital since November 25. The patient had a one-vessel bypass grafting on the and mitral valve replacement. She also had a modified maze procedure on the same day. She was initially extubated on November 30 to BiPAP. The patient had also to complications after I saw her last including on the need for cardioversion on December 07, dehiscence of her sternal incision on December 08, and sternectomy on December 10. Yesterday, she had a flap repair done by one of the plastic surgeons. She is postop day #1 for that. This morning she was on the assist control mode rate of 14, tidal volume 500, FiO2 30%, and PEEP of 5. Her arterial blood gases show a PaO2 of 95 a PaCO2 of 39 and a pH of 7.49. At that time the patient was on propofol at 25 mcg/m, a saline IV at KVO and vital high protein at a rate of 30 with a goal of 40. The patient looks great today and we went ahead and extubated her to BiPAP. She is on 10 and 5 and 40%. Seemed be doing relatively well with that at the current time. Progress note dated 12/23/2017 Patient is seen again today in the intensive care unit. She was extubated to BiPAP yesterday. She did wear the BiPAP mostly last night. 10/5 and 40%. She did tolerate a brief trial on 5 L high flow nasal cannula this morning as well. She currently denies any worsening shortness of breath. She has a loose nonproductive cough. Chest x-ray shows evidence of cardiomegaly with some pulmonary venous hypertension and interstitial edema. There is left greater than right associated atelectasis. White count 17.0. Hemoglobin 7.7. Platelet count 241,000. Creatinine 0.50. She is continued on vancomycin, meropenem, fluconazole. Progress note dated 12/24/2017 The patient was seen again today in the intensive care unit. She ended up being re-intubated after developing respiratory distress during Dobbhoff tube insertion. She was quite borderline then mainly riding the BiPAP. Current vent settings are assist control of 20, tidal volume 400, FiO2 40% and a PEEP of 5. Morning blood gases revealed a P O2 of 116, pCO2 47, pH 7.41. The plan is for tracheostomy today. She remains on sedation at propofol 50 mcg/kg/m. She is also on pressors at with norepinephrine at 6 John grams per minute. She is a D5 0.45 at 40 miles per hour. White count 13.5. Hemoglobin 7.2. Platelet count 288,000. Sodium 145, potassium 3.6. Creatinine 0.70. Chest wound had been positive for Serratia marcescens. Bronchial washings positive for Rachana. She remains on vancomycin, meropenem, fluconazole. Progress note dated 12/25/2017 The patient is seen again today in the intensive care unit. She is status post tracheostomy tube placement. She remains on mechanical ventilator assist control of 20 tidal volume 400, FiO2 35% and a PEEP of 5. Morning blood gases reveal a P O2 of 109, pCO2 of 41, pH 7.48. She remains sedated on propofol at 15 mcg/kg/m. She has a D5 0.45 at 40 mL per hour. Her tube feeds are currently on hold. The plan is for a Dobbhoff placement today per endoscopy with gastrointestinal service. Chest x-ray reveals bilateral infiltrates and evidence of fluid overload. She is currently afebrile. Hemodynamically stable. Maintaining good O2 saturations up to 100% on 35% FiO2. White count 8.3. Hemoglobin 7.2. Creatinine 0.80. Objective - Vital Signs Vital signs: Vital Signs Temp 98.6 F 12/25/17 08:00 Pulse 92 12/25/17 10:00 Resp 20 12/25/17 10:00 BP 116/54 12/19/17 10:00 Pulse Ox 96 12/25/17 10:00 Intake & Output 12/24/17 12/25/17 12/25/17 18:59 06:59 18:59 Intake Total 1281.715 636 349 Output Total 970 1365 255 Balance 311.715 -729 94 Weight 110.3 kg 110 kg Intake: IV 1037 516 349 Albumin Human 25% 50 ml 50 In Empty Bag 1 bag @ 100 mls/hr IVPB ONCE ONE Rx#: [id number] Dextrose 5%-0.45% NaCl 1, 360 480 40 000 ml @ 40 mls/hr IV . Q24H [facility] Rx#:[id number] Fluconazole in NaCl,Iso- 100 100 Osm 200 mg In Saline 1 100ml.bag @ 100 mls/hr IVPB DAILY [facility] Rx#: [id number] Meropenem 1 gm In Sodium 200 100 Chloride 0.9% 100 ml @ 100 mls/hr IVPB Q8HR [facility] Rx#:[id number] Potassium Chloride 20 meq 100 In Water For Injection 1 100ml.bag @ 50 mls/hr IVPB ONCE ONE Rx#: [id number] Pressure Bag 27 36 9 Intake, IV Titration 204.715 Amount Norepinephrin 16 mg-0.9% 50.407 Ns Pmx 16 mg In 250 ml @ Titrate IV .Q0M [facility] Rx#: [id number] Propofol 1,000 mg In 154.308 Empty Bag 1 bag @ Titrate IV .Q0M [facility] Rx#: [id number] Tube Feeding 40 120 Output: Drainage 295 785 180 Medial Abdomen 40 Right Abdomen 255 785 180 Urine 665 580 75 Estimated Blood Loss 10 Other: Voiding Method Indwelling Catheter Indwelling Catheter Indwelling Catheter # Voids 1 # Bowel Movements 1 ABP, PAP, CO, CI - Last Documented Arterial Blood Pressure 127/62 Pulmonary Artery Pressure 38/33 Cardiac Output 5.8 Cardiac Index 2.9 - Exam Intubated. Sedated. HEENT examination is grossly unremarkable. Mucous membranes are moist. No oral lesions. Neck supple. Full range of motion. No adenopathy thyromegaly or neck vein distention. Tracheostomy tube secured in place. Chest wall dressing dry and intact. Dressing changed earlier revealed moderate serosanguineous drainage without open incision with mesh held with maya what gauze dry gauze with cover roll. Cardiovascular examination reveals regular rhythm rate. S1-S2 normal. No S3 or S4. No discernible murmur noted. Lungs reveal very coarse bilateral breath sounds. Her sounds are equal bilaterally. No wheezes. A few scattered crackles. Abdomen soft bowel sounds are heard. No masses or tenderness. Extremities are intact. No cyanosis or clubbing. There is slight edema. Skin is without rash or lesion. Neurologic examination unable to perform as the patient is sedated and on the mechanical ventilator - Labs CBC & Chem 7: 12/25/17 04:15 12/25/17 04:15 Labs: Abnormal Lab Results - Last 24 Hours (Table) 12/25/17 12/25/17 12/25/17 Range/Units 04:15 04:15 05:25 RBC 2.75 L (3.80-5.40) m/uL Hgb 7.2 L (11.4-16.0) gm/dL Hct 24.0 L (34.0-46.0) % MCHC 30.2 L (31.0-37.0) g/dL RDW 19.5 H (11.5-15.5) % Lymphocytes # 0.6 L (1.0-4.8) k/uL ABG pH 7.48 H (7.35-7.45) ABG pO2 109 H (83-108) mmHg ABG HCO3 31 H (21-25) mmol/L ABG Total CO2 32 H (19-24) mmol/L ABG O2 Saturation 99.1 H (94-97) % BUN 37 H (7-17) mg/dL AST 59 H (14-36) U/L Total Protein 5.0 L (6.3-8.2) g/dL Albumin 2.3 L (3.5-5.0) g/dL Microbiology - Last 24 Hours (Table) 12/24/17 11:30 Catheter Tip Culture - Preliminary Catheter Tip Assessment and Plan Assessment: Assessment Postop day #26 status post one-vessel bypass grafting and mitral valve replacement Postoperative respiratory failure with failure to wean, with extubation occurring on 11/30/2017 and again 12/22/2017. Reintubated on 12/23/2017 and Tracheotomy tube placement many 12/24/2017 Status post cardioversion on December 07 Status post wound dehiscence on December 08 Status post sternotomy on December 10 Flap repair on 12/21/2017, postop day #4 Chest x-ray evidence of fluid overload Acute blood loss anemia requiring blood transfusion History of hypertension History of severe mitral regurgitation History of left subclavian stenosis Paroxysmal atrial fibrillation History of GI bleed Obesity Possible aspiration with aspiration pneumonia Plan: The patient was seen and evaluated by Dr. Garcia. Chest x-ray, ABGs and labs were reviewed. We'll give the patient interruption of sedation. We'll give her a weaning trial on a pressure support of 10 and CPAP of 5. We'll resume tube feedings as a Dobbhoff tube has been placed by endoscopy. We'll continue to monitor her here closely in the intensive care unit. Her overall prognosis remains quite guarded. We'll continue with her current medications. We'll continue to follow and make further recommendations based on her clinical status. Critical care time 33 minutes. I, the cosigning physician, performed a history & physical examination of the patient. Lungs sounds have few scattered rhonchi, crackles in the posterior bases. Maintaining good O2 saturations in the 90s on 35% FiO2. I discussed the assessment and plan of care with my nurse practitioner, Tiffany Iniguez. I attest to the above note as dictated by her. Time with Patient: Greater than 30
--- NOTE | 2017-12-25 10:49 | P.PN ---
Subjective Progress Note Date: 12/25/17 Principal diagnosis: Severe mitral valve regurgitation. Coronary artery disease. Preoperative paroxysmal atrial fibrillation on outpatient Coumadin for anticoagulation. Recent hospitalization for lower GI bleed, and duodenal ulcer. History of left subclavian stenosis with stent placement 2014 with recent discovery of critical re-in-stent stenosis. Previous tobacco dependence with preoperative FEV1 60% of predicted. Hypertension. Hyperlipidemia. Depression on Lexapro. Gallbladder disease. Family history of heart disease. Preoperative nasal swab positive for MRSA. Preoperative anemia. POD #30 and Mitral valve replacement using a 25 mm Ribera bioprosthetic tissue valve. Coronary artery bypass grafting 1, a reverse greater saphenous vein graft to the obtuse marginal coronary artery. Endoscopic harvesting of the left greater saphenous vein. Modified MAZE procedure. The report wasn't back yet not back in Ligation of the left atrial appendage using a 40 mm AtriClip. Epi- aortic ultrasound. Intraoperative transesophageal echocardiogram. Intraoperative left ventricular wall tear, an unexpected but potential outcome of surgery. Acute blood loss anemia, an expected outcome given patient's preoperative anemia and intraoperative bleeding. Postoperative prolonged mechanical ventilation secondary to hemodynamic instability, an unexpected but potential outcome of surgery given the extensive nature of her postoperative course. Sternal incision dehiscence, possible outcome of surgery given the patient's obesity, nutrition status and ability. POD #15 sternal wound debridement with placement of wound VAC. POD #10 bronchoscopy and bronchoalveolar lavage of the left lower lobe and extraction of mucous plug POD #4 right rectus abdominous muscle flap closure, open sternal wound. Closure of sternal wound and muscle flap with skin graft substitute, 238 cm. Implantation of reconstructive graft for closure of abdominal wall wound, [address] Krause. Postoperative left lower lobe collapse secondary to mucous plugging, and unexpected but potential outcome of surgery. Bronchial washings positive for Rachana species. Patient is currently lying in bed with her head elevated at 45. She is in no acute distress. She is post operative tracheostomy placement, she remains with mechanical ventilator support. She is currently sedated on Diprivan drip at 15 mcg/kg/m. Bedside telemetry showing normal sinus rhythm heart rate 94. Her daughter and aparna are at her bedside, questions answered to the best my ability. The patient had a Dobbhoff tube placed under endoscopy today performed by Dr. Jahaira Plummer. Objective - Vital Signs Vital signs: Vital Signs Temp 98.6 F 03/24/18 08:00 Pulse 92 12/25/17 10:00 Resp 20 12/25/17 10:00 BP 116/54 12/19/17 10:00 Pulse Ox 96 12/25/17 10:00 Intake & Output 12/24/17 12/25/17 12/25/17 18:59 06:59 18:59 Intake Total 1281.715 636 349 Output Total 970 1365 255 Balance 311.715 -729 94 Weight 110.3 kg 110 kg Intake: IV 1037 516 349 Albumin Human 25% 50 ml 50 In Empty Bag 1 bag @ 100 mls/hr IVPB ONCE ONE Rx#: [id number] Dextrose 5%-0.45% NaCl 1, 360 480 40 000 ml @ 40 mls/hr IV . Q24H [facility] Rx#:[id number] Fluconazole in NaCl,Iso- 100 100 Osm 200 mg In Saline 1 100ml.bag @ 100 mls/hr IVPB DAILY [facility] Rx#: [id number] Meropenem 1 gm In Sodium 200 100 Chloride 0.9% 100 ml @ 100 mls/hr IVPB Q8HR [facility] Rx#:[id number] Potassium Chloride 20 meq 100 In Water For Injection 1 100ml.bag @ 50 mls/hr IVPB ONCE ONE Rx#: [id number] Pressure Bag 27 36 9 Intake, IV Titration 204.715 Amount Norepinephrin 16 mg-0.9% 50.407 Ns Pmx 16 mg In 250 ml @ Titrate IV .Q0M [facility] Rx#: [id number] Propofol 1,000 mg In 154.308 Empty Bag 1 bag @ Titrate IV .Q0M [facility] Rx#: [id number] Tube Feeding 40 120 Output: Drainage 295 785 180 Medial Abdomen 40 Right Abdomen 255 785 180 Urine 665 580 75 Estimated Blood Loss 10 Other: Voiding Method Indwelling Catheter Indwelling Catheter Indwelling Catheter # Voids 1 # Bowel Movements 1 ABP, PAP, CO, CI - Last Documented Arterial Blood Pressure 127/62 Pulmonary Artery Pressure 38/33 Cardiac Output 5.8 Cardiac Index 2.9 - Constitutional General appearance: Present: cooperative, no acute distress, obese - Neck Details: Neck is supple, tracheostomy is midline and intact with sutures, no JVD or lymphadenopathy. - Respiratory Details: Lung sounds are essentially clear throughout, diminished her bilateral bases left greater than right. Respirations are symmetrical and nonlabored with mechanical ventilator support. #8 Shiley trach is intact and secured with sutures. She remains with mechanical ventilator support, current ventilator settings are as follows: Assist control 20, TV 400, FiO2 35%, PEEP of 5. Oxygen saturations are currently 100% with current mechanical ventilator settings. - Cardiovascular Details: Regular rhythm and rate. S1 and S2 present, negative for S3, gallop or murmur. Open chest wound with surgically implanted dressing over muscle flap. Dressing clean and dry. Generalized +2 to +3 edema with some weeping. Vance wraps in placed to her bilateral lower extremities from her toes to thighs. Knee-high SCDs in place to her bilateral lower extremity Vance. Left brachial PICC line in place and functioning. - Gastrointestinal Gastrointestinal Comment(s): Abdomen is soft, nontender and nondistended. Hypoactive bowel sounds all 4 abdominal quadrants. Dobbhoff tube placed this a.m. by Dr. Plummer, we will restart tube feedings per dietitian's recommendations. - Genitourinary Genitourinary Comment(s): Mason catheter for accurate I&O. Clear yellow urine. Adequate urine output. 325 mL output in the last 8 hours. - Neurologic Neurologic: Present: CNII-XII intact - Musculoskeletal Musculoskeletal: Present: generalized weakness - Psychiatric Psychiatric Comment(s): Remains on Diprivan drip. Opens eyes with verbal stimuli, nods her head yes and no appropriately to questions. She is moving all 4 extremities with weak movement. - Allied health notes Allied health notes reviewed: nursing - Labs CBC & Chem 7: 12/25/17 04:15 12/25/17 04:15 Labs: Abnormal Lab Results - Last 24 Hours (Table) 12/25/17 12/25/17 12/25/17 Range/Units 04:15 04:15 05:25 RBC 2.75 L (3.80-5.40) m/uL Hgb 7.2 L (11.4-16.0) gm/dL Hct 24.0 L (34.0-46.0) % MCHC 30.2 L (31.0-37.0) g/dL RDW 19.5 H (11.5-15.5) % Lymphocytes # 0.6 L (1.0-4.8) k/uL ABG pH 7.48 H (7.35-7.45) ABG pO2 109 H (83-108) mmHg ABG HCO3 31 H (21-25) mmol/L ABG Total CO2 32 H (19-24) mmol/L ABG O2 Saturation 99.1 H (94-97) % BUN 37 H (7-17) mg/dL AST 59 H (14-36) U/L Total Protein 5.0 L (6.3-8.2) g/dL Albumin 2.3 L (3.5-5.0) g/dL Microbiology - Last 24 Hours (Table) 12/24/17 11:30 Catheter Tip Culture - Preliminary Catheter Tip - Imaging and Cardiology Chest x-ray: report reviewed, image reviewed Assessment and Plan (1) Acute blood loss as cause of postoperative anemia Current Visit: Yes Status: Acute Code(s): D62 - ACUTE POSTHEMORRHAGIC ANEMIA SNOMED Code(s): 13404631373724884 (2) CAD (coronary artery disease) Current Visit: Yes Status: Chronic Code(s): I25.10 - ATHSCL HEART DISEASE OF [place] CORONARY ARTERY W/O ANG PCTRS SNOMED Code(s): 55637366 (3) Family history of coronary artery disease Current Visit: Yes Status: Chronic Code(s): Z82.49 - FAMILY HX OF ISCHEM HEART DIS AND OTH DIS OF THE CIRC SYS SNOMED Code(s): 082328849 (4) Hyperlipidemia Current Visit: Yes Status: Chronic Code(s): E78.5 - HYPERLIPIDEMIA, UNSPECIFIED SNOMED Code(s): 75960291 (5) Hypertension Current Visit: Yes Status: Chronic Code(s): I10 - ESSENTIAL (PRIMARY) HYPERTENSION SNOMED Code(s): 53825477 (6) Severe mitral regurgitation Current Visit: Yes Status: Chronic Code(s): I34.0 - NONRHEUMATIC MITRAL ( VALVE) INSUFFICIENCY SNOMED Code(s): 07404662 (7) Stenosis of left subclavian artery Current Visit: Yes Status: Chronic Code(s): I77.1 - STRICTURE OF ARTERY SNOMED Code(s): 01454382221736387 (8) PAD (peripheral artery disease) Current Visit: No Status: Acute Code(s): I73.9 - PERIPHERAL VASCULAR DISEASE , UNSPECIFIED SNOMED Code(s): 780980672 (9) History of GI bleed Current Visit: No Status: Resolved Code(s): Z87.19 - PERSONAL HISTORY OF OTHER DISEASES OF THE DIGESTIVE SYSTEM SNOMED Code(s): 485833359 (10) Paroxysmal atrial fibrillation Current Visit: No Status: Resolved Code(s): I48.0 - PAROXYSMAL ATRIAL FIBRILLATION SNOMED Code(s): 853790806 (11) Elevated aspartate aminotransferase level Current Visit: Yes Status: Acute Code(s): R74.0 - NONSPEC ELEV OF LEVELS OF TRANSAMNS & LACTIC ACID DEHYDRGNSE SNOMED Code(s): 732817696 Plan: 1. Continue low-dose aspirin, statin, subcutaneous heparin, beta krunal. Will increase beta krunal therapy as tolerated. 2. Continue amiodarone, we will decrease her amiodarone to 200 mg per Dobbhoff daily for history of paroxysmal atrial fibrillation on home amiodarone. 3. Pulmonary and ventilator management per Dr. Garcia's recommendations. 4. Continue meropenem, vancomycin and Diflucan per Dr. Olivera management 5. Restart tube feedings per dietary recommendations per Dobbhoff tube. 6. Will monitor labs, chest x-rays. 7. Bronchodilators per pulmonology management. 8. Replace potassium per protocol. 9. GI/DVT prophylaxis. 10. Dressing changes to sternal wound to be done daily by cardiothoracic surgeon or nurse practitioner. 11. Keep HENRI drains in place. 12. Continue Mason catheter for accurate I&O. 13. Albumin 25% followed by Lasix 40 mg IV 1 today. 14. More recommendations as patient progresses in her care. Time with Patient: Greater than 30
[2017-12-25] MEDS: MORPHINE SULFATE/PF 10MG/10ML VL IVP PRN ×3 (11:24→23:49)
--- NOTE | 2017-12-25 11:36 | CONS ---
CONSULTATION DATE OF SERVICE: 12/25/2017 REASON FOR CONSULTATION: Dysphagia secondary to trach, possible oral feeding tube placement. HISTORY OF PRESENT ILLNESS: Patient is a 67-year-old pleasant white female who is postop day #29 for mitral valve replacement and CABG. Patient had sternal wound dehiscence followed by graft placement. Subsequently, she was in and out of the ICU for ongoing issues. She had a tracheostomy done yesterday and apparently prior to that, she had attempted tube placement for feeding, but was not successful and hence we are consulted for an EGD with the above tube placement today. PAST MEDICAL HISTORY: Significant for A. fib, mitral valve regurgitation, hypertension, hyperlipidemia. PAST SURGICAL HISTORY: Recent CABG, carpal tunnel surgery, D and C, NILDA. MEDICATIONS: At home, Lexapro, aspirin, Lipitor, Lasix, Lopressor, Cordarone, and Coumadin. ALLERGIES: CODEINE. SOCIAL HISTORY AND FAMILY HISTORY: Could not be obtained as patient presently on the vent and sedated. PHYSICAL EXAMINATION: Appears sedated. Vital signs stable, blood pressure is 93/43, pulse rate 79, temperature 98.6. HEENT examination unremarkable. Conjunctivae are pink, sclerae nonicteric, oral cavity no lesions. NECK: No JVD or lymph node enlargement. Trach in place. ABDOMEN: Soft, nontender, large Band-Aid on the right upper quadrant where the skin graft was done. EXTREMITIES: No pedal edema. NEURO: Sedated. LABS: From today, WBC 8.3, hemoglobin 7.2, platelets are 311. Basic metabolic panel is normal. IMPRESSION: This is a lady who is postoperative day #29, who is status post coronary artery bypass grafting and mitral valve repair who underwent tracheostomy yesterday and had an attempted above tube placement, but was unsuccessful and consulted for EGD with a feeding tube placement today. RECOMMENDATIONS: Will proceed with an upper endoscopy at the bedside and proceed with the above tube placement. I discussed with the who is at the bedside the risks, benefits and complications of the procedure and she is agreeable to it. Thank you for this consultation. MMODL / IJN: [id number] /
[2017-12-25] MEDS ORDERED: ALBUMIN HUMAN 25% 50 ML in EMPTY BAG 1 BAG IVPB ONE (12:00)
[2017-12-25] MEDS: LACTOBACILLUS ACIDOPH & BULGAR 1 EACH PACKET PO SCH ×4 (12:11→21:44)
[2017-12-25] MEDS: BISACODYL 10 MG SUPP RECTAL SCH (12:11)
[2017-12-25 12:12] LABS: Glucose,Whole Blood 100 mg/dL (75-99)
[2017-12-25] MEDS: VANCOMYCIN 1,500 MG in SODIUM CHLORIDE 0.9% 250 ML IVPB SCH (12:14)
--- NOTE | 2017-12-25 14:18 | PN ---
PROGRESS NOTE Maritza is a 67-year-old lady who has a history of chronic atrial fibrillation, mitral regurgitation, status post mitral valve replacement, coronary artery disease who has been in the hospital for a long time. Patient's postoperative course was complicated by sternal wound dehiscence and she has had surgery for that. She is currently status post tracheostomy, has respiratory failure. PHYSICAL EXAM: Comfortable at rest. Vital signs are stable. Chest exam reveals diminished air entry at the bases. Heart exam reveals first and second heart sounds. No gallop. Exam of extremities did not reveal any edema. Peripheral pulses are palpable. LABS: Show potassium of 3.5, creatinine is 0.8, hemoglobin is 7.2. ASSESSMENT: 1. Chronic atrial fibrillation, currently in sinus rhythm. 2. Coronary artery disease, status post coronary artery bypass grafting. 3. Status post mitral regurgitation, status post mitral valve replacement. PLAN: Patient is on Cordarone, aspirin Lipitor, which I am going to continue at this time. MMODL / IJN: [id number] /
[2017-12-25] MEDS: LACTATED RINGERS 1,000 ML IV SCH (15:39)
[2017-12-25 18:21] LABS: Glucose,Whole Blood 99 mg/dL (75-99)
[2017-12-25] MEDS: DEXTROSE 5%-0.45% NACL 1,000 ML IV SCH (18:22)
[2017-12-25] MEDS: SENNOSIDES-DOCUSATE SODIUM 1 EACH TAB PO SCH (21:45)
[2017-12-25] MEDS: ESCITALOPRAM 10 MG TAB PO SCH (21:45)
--- NOTE | 2017-12-25 22:14 | P.PN ---
Subjective Progress Note Date: 12/25/17 Principal diagnosis: Sternal wound dehiscence Pleasant 67-year-old female who has an extensive past medical history who is now 14 days postoperative from her open heart procedure it which point in time a mitral valve placement occurred, reverse saphenous vein coronary artery bypass grafting 1 to obtuse marginal, Maze procedure and ligation of the left atrial appendage all occurred interoperatively left ventricular wall tear occurred and was repaired. The patient has a known history of multiple medical troubles before her surgery that included her obesity, COPD and marked deconditioning. Patient has had difficulties recently that included urinary tract infection with E. coli and Serratia and has been treated with intravenous antibiotic therapy with Zosyn. She was having some improvement but then developed dehiscence of her sternal wound and there are plans for surgical debridement tomorrow wound culture showing gram-negative bacilli and with at the infectious diseases consultation was requested. The patient continues to have significant respiratory difficulties and is currently on BiPAP for support. Postoperatively the patient was hemodynamically unstable which made even turning of the patient not possible which has resulted in unavoidable areas of skin breakdown, that are now treatable given her improvement 12/10/2017 reveals the patient to be postoperative from the sternal wound debridement. The surgical note as well as discussion with the surgical team reveals evidence of poor bone quality and all of the sternal wires had pulled through her bony areas. Negative pressure therapy is in place. She is tolerating this well. Plastic surgery consult has been requested for reconstruction of her chest in the near future. Gram-negative bacilli growing from the sternal wound. She is quite comfortable after procedure, chest tube was placed of the left cavity and this is improved some left lung function and she seems less short of breath. The daughter is present and her questions were answered. 12/11/2017 reveals the patient to have had some respiratory distress today and is back on BiPAP at this time. She relates that her pain is under much significant control. Been no other new acute complaints are being made. 12/13/2017 the patient remains in the ICU she is currently on BiPAP but relates that she is quite comfortable. We will work with the nursing staff to change her VAC dressing at this time. await the plastic surgery timeline. 12/15/2017 reveals the patient to remain in intensive care unit, her status has worsened and that she developed flash pulmonary edema and respiratory failure requiring reintubation sedation mechanical ventilation. She underwent bronchoscopy today for removal of mucous plugs and to help with the collapsed left lower lobe. The patient has require some vasopressor support but is more stable this afternoon than earlier. She is sedated and comfortable. She has significant decline of hemoglobin is 7.6. Anticoagulation was held. Is being closely monitored by surgery and they await the plastic surgery intervention. 12/16/2017 cases briefly discussed with the cardiothoracic nurse practitioner in that the wound VAC is being changed today. It is unchanged with no difficulties. No further bleeding is noted. Plastic surgery evaluation apparently will occur tomorrow so the surgical plan can be devised. 12/20/2017 since last visit current thoracic has again change the wound VAC without difficulties. She tolerated it well. She remains on the ventilator at this point in time, does not appear to have any plans for weaning because she will have her plastic closure over open chest tomorrow. She's been hemodynamically stable with intermittent atrial flutter. No significant changes of oxygen requirements, drainage from the wound VAC is minimal as is drainage from her chest tube. 12/21/2017 patient is status post the partial plastic closure of her sternal wound. Complete cardiac coverage occurred but only partial closure was possible. Oxygen requirements are improving postoperative and is being closely watched for any further blood loss anemia. 12/23/2017 reveals the patient to be extubated on BiPAP. She is comfortable with her pain level is about a 2. Shortness of breath is not severe. She is unable to eat and a Dobbhoff will be placed a bit later today to help her with nutritional status to help her recovery. The current situation is discussed with the cardiothoracic surgeon team 12/24/2017 reveals evidence of the changes status in that she has now had a tracheostomy applied due to her chronic respiratory failure. Cardiothoracic surgery has changed the dressing today. Patient is comfortable after her surgery. Denies new acute discomforts. 12/25/2017 reveals that the patient is doing well with her tracheostomy. She is on 35% FiO2 with excellent saturations. The patient relates that she is comfortable her pain level is no more than a 4. She is receiving feedings via the Dobbhoff is tolerating that well but is having a few soft stools without swapnil diarrhea. Objective - Vital Signs Vital signs: Vital Signs Temp 98.7 F 12/25/17 20:00 Pulse 94 12/25/17 22:00 Resp 20 12/25/17 22:00 BP 116/54 12/19/17 10:00 Pulse Ox 100 12/25/17 22:00 Intake & Output 12/25/17 12/25/17 12/26/17 06:59 18:59 06:59 Intake Total 636 909 133 Output Total 1365 1440 250 Balance -729 -531 -117 Weight 110 kg Intake: IV 516 599 13 Dextrose 5%-0.45% NaCl 1, 480 160 10 000 ml @ 10 mls/hr IV . Q24H [facility] Rx#:[id number] Fluconazole in NaCl,Iso- 100 Osm 200 mg In Saline 1 100ml.bag @ 100 mls/hr IVPB DAILY [facility] Rx#: [id number] Meropenem 1 gm In Sodium 200 Chloride 0.9% 100 ml @ 100 mls/hr IVPB Q8HR [facility] Rx#:[id number] Potassium Chloride 20 meq 100 In Water For Injection 1 100ml.bag @ 50 mls/hr IVPB ONCE ONE Rx#: [id number] Pressure Bag 36 39 3 Tube Feeding 120 280 120 Other 30 Output: Drainage 785 895 215 Medial Abdomen 80 80 Right Abdomen 785 815 135 Urine 580 545 35 Other: Voiding Method Indwelling Catheter Indwelling Catheter # Voids 1 ABP, PAP, CO, CI - Last Documented Arterial Blood Pressure 109/54 Pulmonary Artery Pressure 38/33 Cardiac Output 5.8 Cardiac Index 2.9 - Exam Obese 67-year-old woman who is now extubated on BiPAP HEENT: Anicteric conjunctiva are pink and moist nasal mucosa grossly intact without significant lesions, there is no thrush. Oral mucosa is dry but no swapnil lesions could be seen Neck: The neck is supple without significant lymphadenopathy or thyromegaly. Tracheostomy intact without bleeding Lungs: Symmetrical air entry is noted. There is scattered crackles but no swapnil bronchial sounds Heart: Irregular with an audible S1 and S2 soft S4 no audible murmur no click or rub Chest: The patient's mid sternotomy incision is now covered with a postoperative dressing from the plastic closure which is reported to be a partial flap closure Abdomen: Obese, Positive bowel sounds soft and nontender without palpable masses or organomegaly. There was no guarding or rebound. Extremities: The upper and lower extremities have evidence of edema harvest site is intact there is some bruising that is noted especially on the left groin area. IV sites are intact. Skin: With the nursing staff the buttocks pressure ulcerations are evaluated which are showing improvement. The ulceration on the skin fold above her buttocks is also evaluated and appears to be improving. Also improvement of the ulceration to the right wrist area. Skin however is now having some blistering due to her hypoalbuminemia and excessive volume. Sternal wound dressing is dry and intact. Neuro: Comfortable at this time after her tracheostomy. - Labs CBC & Chem 7: 12/25/17 04:15 12/25/17 04:15 Labs: Abnormal Lab Results - Last 24 Hours (Table) 12/25/17 12/25/17 12/25/17 Range/Units 04:15 04:15 05:25 RBC 2.75 L (3.80-5.40) m/uL Hgb 7.2 L (11.4-16.0) gm/dL Hct 24.0 L (34.0-46.0) % MCHC 30.2 L (31.0-37.0) g/dL RDW 19.5 H (11.5-15.5) % Lymphocytes # 0.6 L (1.0-4.8) k/uL ABG pH 7.48 H (7.35-7.45) ABG pO2 109 H (83-108) mmHg ABG HCO3 31 H (21-25) mmol/L ABG Total CO2 32 H (19-24) mmol/L ABG O2 Saturation 99.1 H (94-97) % BUN 37 H (7-17) mg/dL POC Glucose (mg/dL) (75-99) mg/dL AST 59 H (14-36) U/L Total Protein 5.0 L (6.3-8.2) g/dL Albumin 2.3 L (3.5-5.0) g/dL 12/25/17 Range/Units 12:10 RBC (3.80-5.40) m/uL Hgb (11.4-16.0) gm/dL Hct (34.0-46.0) % MCHC (31.0-37.0) g/dL RDW (11.5-15.5) % Lymphocytes # (1.0-4.8) k/uL ABG pH (7.35-7.45) ABG pO2 (83-108) mmHg ABG HCO3 (21-25) mmol/L ABG Total CO2 (19-24) mmol/L ABG O2 Saturation (94-97) % BUN (7-17) mg/dL POC Glucose (mg/dL) 100 H (75-99) mg/dL AST (14-36) U/L Total Protein (6.3-8.2) g/dL Albumin (3.5-5.0) g/dL Microbiology - Last 24 Hours (Table) 12/24/17 11:30 Catheter Tip Culture - Preliminary Catheter Tip Laboratory Results WBC 8.3 k/uL (3.8-10.6) 12/25/17 04:15 RBC 2.75 m/uL (3.80-5.40) L 12/25/17 04:15 Hgb 7.2 gm/dL (11.4-16.0) L 12/25/17 04:15 Hct 24.0 % (34.0-46.0) L 12/25/17 04:15 MCV 87.3 fL (80.0-100.0) 12/25/17 04:15 MCH 26.3 pg (25.0-35.0) 12/25/17 04:15 MCHC 30.2 g/dL (31.0-37.0) L 12/25/17 04:15 RDW 19.5 % (11.5-15.5) H 12/25/17 04:15 Plt Count 311 k/uL (150-450) 12/25/17 04:15 Neutrophils % 85 % 12/25/17 04:15 Neutrophils % (Manual) 98 % 12/05/17 04:25 Lymphocytes % 7 % 12/25/17 04:15 Lymphocytes % (Manual) 1 % 12/05/17 04:25 Monocytes % 4 % 12/25/17 04:15 Monocytes % (Manual) 1 % 12/05/17 04:25 Eosinophils % 2 % 12/25/17 04:15 Basophils % 0 % 12/25/17 04:15 Myelocytes % 1 % 12/03/17 04:15 Neutrophils # 7.1 k/uL (1.3-7.7) 12/25/17 04:15 Neutrophils # (Manual) 26.95 k/uL (1.3-7.7) H 12/05/17 04:25 Lymphocytes # 0.6 k/uL (1.0-4.8) L 12/25/17 04:15 Lymphocytes # (Manual) 0.28 k/uL (1.0-4.8) L 12/05/17 04:25 Monocytes # 0.3 k/uL (0-1.0) 12/25/17 04:15 Monocytes # (Manual) 0.28 k/uL (0-1.0) 12/05/17 04:25 Eosinophils # 0.2 k/uL (0-0.7) 12/25/17 04:15 Basophils # 0.0 k/uL (0-0.2) 12/25/17 04:15 Myelocytes # (Manual) 0.17 k/uL (0) H 12/03/17 04:15 Nucleated RBCs 0 /100 WBC (0-0) 12/05/17 04:25 Manual Slide Review Performed 12/05/17 04:25 Polychromasia Present 12/03/17 04:15 Hypochromasia Marked 12/25/17 04:15 Poikilocytosis Moderate 12/25/17 04:15 Anisocytosis Slight 12/25/17 04:15 Microcytosis Slight 12/17/17 04:45 Target Cells Present 12/03/17 04:15 PT 10.8 sec (9.0-12.0) 12/21/17 04:50 INR 1.1 (<1.2) 12/21/17 04:50 APTT 23.9 sec (22.0-30.0) 12/21/17 04:50 Fibrinogen 334 mg/dL (200-500) 11/26/17 04:22 Sample Site [place] 12/25/17 05:25 ABG pH 7.48 (7.35-7.45) H 12/25/17 05:25 ABG pCO2 41 mmHg (35-45) 12/25/17 05:25 ABG pO2 109 mmHg (83-108) H 12/25/17 05:25 ABG HCO3 31 mmol/L (21-25) H 12/25/17 05:25 ABG Total CO2 32 mmol/L (19-24) H 12/25/17 05:25 ABG O2 Saturation 99.1 % (94-97) H 12/25/17 05:25 ABG Base Excess 6.9 mmol/L 12/25/17 05:25 ABG Hematocrit 24 % (34.0-46.0) L 11/25/17 17:37 Robbi Test Yes 12/25/17 05:25 ABG Sodium 144 mmol/L (135-146) 11/25/17 17:37 ABG Potassium 3.8 mmol/L (3.4-4.5) 11/25/17 17:37 ABG Ionized Calcium 4.0 mg/dL (4.5-5.3) L 11/25/17 17:37 ABG Glucose 139 mg/dL (75-99) H 11/25/17 17:37 ABG Lactic Acid 2.8 mmol/L (0.5-1.6) H* 11/25/17 17:37 Hemoglobin 7.8 gm/dL (11.4-16.0) L 11/25/17 17:37 FiO2 35 % 12/25/17 05:25 Sodium 144 mmol/L (137-145) 12/25/17 04:15 Potassium 3.5 mmol/L (3.5-5.1) 12/25/17 04:15 Chloride 105 mmol/L (98-107) 12/25/17 04:15 Carbon Dioxide 29 mmol/L (22-30) 12/25/17 04:15 Anion Gap 10 mmol/L 12/25/17 04:15 BUN 37 mg/dL (7-17) H 12/25/17 04:15 Creatinine 0.80 mg/dL (0.52-1.04) 12/25/17 04:15 Est GFR (MDRD) Af Amer >60 (>60 ml/min/1.73 sqM) 12/07/17 04:00 Est GFR (MDRD) Non-Af >60 (>60 ml/min/1.73 sqM) 12/07/17 04:00 Est GFR (CKD-EPI)AfAm 88 (>60 ml/min/1.73 sqM) 12/25/17 04:15 Est GFR (CKD-EPI)NonAf 77 (>60 ml/min/1.73 sqM) 12/25/17 04:15 Glucose 77 mg/dL (74-99) 12/25/17 04:15 POC Glucose (mg/dL) 99 mg/dL (75-99) 12/25/17 18:20 POC Glu Piecer Up ID [place] 12/25/17 18:20 Calcium 8.4 mg/dL (8.4-10.2) 12/25/17 04:15 Ionized Calcium Bruce 4.7 mg/dL (4.5-5.3) 12/11/17 15:45 Phosphorus 3.1 mg/dL (2.5-4.5) 12/24/17 04:23 Magnesium 2.2 mg/dL (1.6-2.3) 12/24/17 04:23 Total Bilirubin 0.7 mg/dL (0.2-1.3) 12/25/17 04:15 AST 59 U/L (14-36) H 12/25/17 04:15 ALT 44 U/L (9-52) 12/25/17 04:15 Alkaline Phosphatase 107 U/L (38-126) 12/25/17 04:15 Total Protein 5.0 g/dL (6.3-8.2) L 12/25/17 04:15 Albumin 2.3 g/dL (3.5-5.0) L 12/25/17 04:15 Arterial Blood Potassium 3.8 mmol/L (3.4-4.5) 11/25/17 17:37 Arterial Blood Glucose 139 mg/dL (75-99) H 11/25/17 17:37 Urine Color Yellow 12/04/17 10:00 Urine Appearance Cloudy (Clear) H 12/04/17 10:00 Urine pH 5.5 (5.0-8.0) 12/04/17 10:00 Ur Specific [place] 1.015 (1.001-1.035) 12/04/17 10:00 Urine Protein Trace (Negative) H 12/04/17 10:00 Urine Glucose (UA) Negative (Negative) 12/04/17 10:00 Urine Ketones Negative (Negative) 12/04/17 10:00 Urine Blood Negative (Negative) 12/04/17 10:00 Urine Nitrite Negative (Negative) 12/04/17 10:00 Urine Bilirubin Negative (Negative) 12/04/17 10:00 Urine Urobilinogen <2.0 mg/dL (<2.0) 12/04/17 10:00 Ur Leukocyte Esterase Negative (Negative) 12/04/17 10:00 Urine RBC 7 /hpf (0-5) H 12/04/17 10:00 Urine WBC 1 /hpf (0-5) 12/04/17 10:00 Ur Squamous Epith Cells 8 /hpf (0-4) H 12/04/17 10:00 Urine Bacteria Occasional /hpf (None) H 12/04/17 10:00 Urine Mucus Rare /hpf (None) H 12/04/17 10:00 Fluid Source Bronchial Wash 12/15/17 10:40 Fluid Color Colorless 12/15/17 10:40 Fluid Appearance Cloudy 12/15/17 10:40 Fluid RBC 150 /uL 12/15/17 10:40 Fluid Nucleated Cells 6900 /uL 12/15/17 10:40 Fluid Polynuclear WBCs 95 % 12/15/17 10:40 Fluid Mononuclear WBCs 5 % 12/15/17 10:40 Vancomycin Trough 17.3 ug/mL 12/22/17 11:45 Random Vancomycin 21.2 ug/mL 12/16/17 04:15 Heparin-Ind Plt Ab Scrn 0.231 OD (<0.4) 11/29/17 04:50 Virus Source See Below 12/15/17 10:40 Viral Test See Below 12/15/17 10:40 Virus Analysis Interp See Below 12/15/17 10:40 Blood Type A Positive 12/21/17 11:28 Blood Type Recheck No 12/21/17 11:28 Antibody Screen NEGATIVE 12/21/17 11:28 Crossmatch See Detail 12/14/17 10:10 Transfuse Cryo [id number] 11/26/17 00:39 Transfuse Plasma 12/15/2017 12/15/17 05:51 Transfuse Platelets [id number] 11/25/17 14:55 Spec Expiration Date 12/24/2017 - 232712/21/17 11:28 Microbiology 12/24/17 11:30 Catheter Tip Catheter Tip Culture - Preliminary 12/10/17 10:50 Chest Acid Fast Bacilli Smear - Final 12/10/17 10:50 Chest Acid Fast Bacilli Culture - Preliminary 12/10/17 10:45 Chest Acid Fast Bacilli Smear - Final 12/10/17 10:45 Chest Acid Fast Bacilli Culture - Preliminary 12/15/17 10:40 Bronchial Washings - Left Fungal Culture - Preliminary Rachana albicans 12/10/17 10:40 Chest Fungal Culture - Preliminary 12/10/17 10:45 Chest Fungal Culture - Preliminary 12/10/17 10:50 Chest Fungal Culture - Preliminary 12/15/17 10:40 Bronchial Washings - Left Gram Stain - Final 12/15/17 10:40 Bronchial Washings - Left Bronchial Washings Culture - Final Rachana albicans 12/14/17 21:30 Sputum Gram Stain - Final 12/14/17 21:30 Sputum Sputum Culture - Final Rachana albicans 12/15/17 10:40 Bronchial Washings - Left Acid Fast Bacilli Smear - Final 12/15/17 10:40 Bronchial Washings - Left Acid Fast Bacilli Culture - Preliminary 12/10/17 10:50 Chest Anaerobic Culture - Final 12/10/17 10:40 Chest Anaerobic Culture - Final 12/10/17 10:45 Chest Anaerobic Culture - Final 12/13/17 05:27 Urine,Catheterized Urine Culture - Final 12/10/17 10:40 Chest Gram Stain - Final 12/10/17 10:40 Chest Wound Culture - Final Serratia marcescens 12/10/17 10:45 Chest Gram Stain - Final 12/10/17 10:45 Chest Tissue Culture - Final Serratia marcescens 12/10/17 10:50 Chest Gram Stain - Final 12/10/17 10:50 Chest Tissue Culture - Final Serratia marcescens 12/07/17 15:40 Chest Gram Stain - Final 12/07/17 15:40 Chest Wound Culture - Final Serratia marcescens 12/04/17 10:00 Urine,Voided Urine Culture - Final Escherichia coli Serratia marcescens 11/26/17 04:00 Sputum Gram Stain - Final 11/26/17 04:00 Sputum Sputum Culture - Final Assessment and Plan (1) Severe mitral regurgitation Current Visit: Yes Status: Chronic Code(s): I34.0 - NONRHEUMATIC MITRAL ( VALVE) INSUFFICIENCY SNOMED Code(s): 13824188 (2) CAD (coronary artery disease) Current Visit: Yes Status: Chronic Code(s): I25.10 - ATHSCL HEART DISEASE OF [place] CORONARY ARTERY W/O ANG PCTRS SNOMED Code(s): 99624630 (3) Acute blood loss as cause of postoperative anemia Current Visit: Yes Status: Acute Code(s): D62 - ACUTE POSTHEMORRHAGIC ANEMIA SNOMED Code(s): 51124148416262818 (4) Pressure ulcer of contiguous region involving back and buttock, stage 3 Current Visit: Yes Status: Acute Code(s): L89.43 - PRESSR ULCER OF CONTIG SITE OF BACK, BUTTOCK AND HIP, STG 3 SNOMED Code(s): 097634198 (5) Sternal wound dehiscence Narrative/Plan: 67-year-old woman presents to Hospital for treatment of her severe mitral irritation. Underwent mitral valve replacement, coronary artery bypass grafting 1, Maze procedure and clipping of the left atrial appendage with a complication of the left ventricular wall tear. The patient has had a very protracted recovery she is now day 14 post operative and is still having difficulty with her respiratory status requiring BiPAP. The patient's nutritional status and underlying comorbidities have complicated her care. She now has evidence of the sternal dehiscence with evidence of gram negatives bacilli being found at the site. There is evidence of urinary tract infection with E. coli and Serratia. This Serratia species is somewhat resistant and consequently we'll alter the current antimicrobial therapy from Zosyn to meropenem to ensure coverage for other potential pathogens that are resistant that could be in the sternal wound while we await cultures. The patient will be going to the operating room tomorrow for debridement and wound VAC placement. The cultures were further direct the overall course of antibiotics. Urinary infection appears to be doing somewhat better. The patient fortunately is comfortable and doing well with her BiPAP. 12/10/2017 the patient is status post surgery and actually is feeling a bit better this afternoon than yesterday. Her pain is quite well controlled. She is not on BiPAP. She is less short of breath. Wound culture has verified the Serratia marcescens to the sternal wound. We'll constantly continue the current course of meropenem due to some of the resistance patterns or seeing with the species. Continue local care at this point time with the negative pressure system to the sternal wound. The plastic surgery consult is being requested for reconstruction of her chest. She will require a course of intravenous antibiotic therapy given her complex infection. Dual-lumen PICC is already in place. We'll repeat the discharge planners as to her place of rehab. 12/11/2017 the patient is metabolically stable but is having difficulties with her respiratory status and is now back on BiPAP which has been intermittent over the last multiple days. Negative pressure therapy remains intact and the sternum and we await the plastic surgery intervention. 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 Continue supportive care, and nutritional supplements as possible to improve for tissue healing. 12/13/2017 patient is on BiPAP. She is comfortable at this time. Receiving her intravenous antibiotic therapy without difficulties. At this time the surgeon present in a sterile fashion the wound VAC is removed. Surgeon evaluates and then the wound VAC is reapplied with 2 of the white foam, periwound protected with DuoDERM no difficulty with the seal. Merrem continues. 12/15/2017 the patient has had marked worsening of her status in that she had respiratory failure requiring reintubation and mechanical ventilation. She is now sedated and comfortable but has had some hemodynamic instability and is now back on vasopressor therapy. Bronchoscopy is performed and suctioning of mucous plugs as allowed some improvement of her pulmonary status. Further cultures are process. Meropenem and vancomycin continue for the isolated Serratia and concerns for resistant gram-positive infection at this time. Plastic surgery evaluation is in process and surgical plans for later this week appear to be possible. 12/16/2017 reveals the patient to be stable from the last 24 hours. Her ventilatory settings are similar. She's currently not on vasopressor therapy. She is tolerating current antibiotic therapy well with no difficulties with rash and diarrhea or marked changes of her hematological parameters. She's had no further active bleeding. Sputum culture with gram-positive cocci seen vancomycin was added we await final cultures. 12/20/2017 patient remained stable and is being prepped for her sternal reconstruction surgery tomorrow. She's not on vasopressor therapy, and vent settings are stable. Most recent bronchoscopy showed mucous plug no evidence of any new pathogens except yeast was found likely from upper airways. Fluconazole was added given her significant risks, although fungal pneumonia is not occurring at this time. At the time of reconstruction repeat samplings from her sternum will be helpful to help direct the course of antibiotic therapy , pathology and culture of the sternum will be helpful. Remains on the meropenem and vancomycin at this time. 12/21/2017 the patient is status post the sternal reconstruction with muscle flap, reportedly is only a partial closure at this time. However visit. The cardiac structure is completely covered. The patient is showing improvement in her cardiopulmonary status today. No active bleeding is noted. She is tolerating current antibiotic therapy well with meropenem and vancomycin. Await final culture and pathological data to help derive the course of her antibiotic therapy 12/23/2017 reveals the patient to be improved, she has been extubated and tolerating BiPAP well. The case is discussed with the cardiothoracic surgeon. The muscle flap was then performed and there is a biological skin substitute over the flap. She related that the plastic surgeon would not allow a wound VAC to be placed for approximately 10 days after the surgery. We will monitor. Continue current antibiotic therapy planning a multiweek course of therapy for the complex sternal wound infection. 12/24/2017 reveals the patient to have further improvement that she has had a tracheostomy placed. This will hopefully help her long-term weaning situation and also help with the nutritional difficulties. As she has improvement of her status hopefully the significant difference with her skin from the edema low albumin and blistering will improve. Receiving extensive antibiotic therapy for the sternal wound dehiscence will continue with the meropenem and vancomycin at this time. 12/25/2017 reveals the patient to have some improvement in the last 24 hours. She's doing well with a tracheostomy and is on 35% FiO2. Pain control is well at this point in time. Her spitting edema seems to be slightly improving and does not have as many blisters that she was having. Still does have anasarca but appears to be a bit less tight than she was a day ago. Her wounds are improving with the local wound care. Antibiotic therapy continues with meropenem and vancomycin for the sternal wound dehiscence and infection. Dressing changes have been per the cardiothoracic team to the chest wound. The abdominal wound is healing well and is having some serous drainage related to the anasarca. Hopefully with improving edema status and improve nutritional status anasarca will resolve. Current Visit: Yes Status: Acute Code(s): T81.32XA - DISRUPTION OF INTERNAL OPERATION (SURGICAL) WOUND, NEC, INIT SNOMED Code(s): 47126067
[2017-12-26] MEDS: METOPROLOL TARTRATE 5 MG/5 ML VIAL IVP SCH (01:07)
[2017-12-26] MEDS: INSULIN ASPART 100 UNIT/ML 1 ML 10 ML VIAL SQ SCH ×4 (01:09→17:32)
[2017-12-26 01:10] LABS: Glucose,Whole Blood 110 mg/dL (75-99)
[2017-12-26] MEDS: MORPHINE SULFATE/PF 10MG/10ML VL IVP PRN ×2 (02:49→17:17)
[2017-12-26] MEDS: IPRATROPIUM-ALBUTEROL 3 ML NEB INHALATION SCH ×6 (03:34→23:28)
[2017-12-26 05:12] LABS: ABG Base Excess 6.7 mmol/L; ABG HCO3 31 mmol/L (21-25); ABG Oxygen Saturation 99.1 % (94-97); ABG PCO2 47 mmHg (35-45); ABG PH 7.43 (7.35-7.45); ABG PO2 107 mmHg (83-108); ABG TCO2 33 mmol/L (19-24)
[2017-12-26 06:01] LABS: Glucose,Whole Blood 119 mg/dL (75-99)
[2017-12-26 06:32] LABS: Albumin 2.6 g/dL (3.5-5.0); Calcium 8.8 mg/dL (8.4-10.2); Potassium 3.4 mmol/L (3.5-5.1); Total Bilirubin 0.7 mg/dL (0.2-1.3); Total Protein 5.5 g/dL (6.3-8.2)
[2017-12-26 06:37] LABS: Anisocytosis Slight; Basophils % (A) 0 %; Eosinophils # (A) 0.2 k/uL (0-0.7); Eosinophils % (A) 2 %; HCT 25.8 % (34.0-46.0); HGB 7.8 gm/dL (11.4-16.0); Hypochromasia Marked; Lymphocytes # (A) 0.5 k/uL (1.0-4.8); Lymphocytes % (A) 5 %; MCH 26.4 pg (25.0-35.0); MCHC 30.2 g/dL (31.0-37.0); MCV 87.5 fL (80.0-100.0); Mean Platelet Volume 7.5; Monocytes # (A) 0.4 k/uL (0-1.0); Monocytes % (A) 4 %; Neutrophils # (A) 7.9 k/uL (1.3-7.7); Neutrophils % (A) 86 %; Platelet Count 370 k/uL (150-450); Poikilocytosis Moderate; RBC 2.95 m/uL (3.80-5.40); RDW 19.3 % (11.5-15.5); WBC 9.1 k/uL (3.8-10.6)
--- NOTE | 2017-12-26 06:51 | XR ---
EXAMINATION TYPE: XR chest 1V portable DATE OF EXAM: 12/26/2017 HISTORY: Postop MVR. REFERENCE: Previous study dated 12/25/2017. FINDINGS: There is a tracheostomy tube in place. Its tip overlies the tracheal air column in this sin gle frontal projection. Multiple surgical sutures project over the mediastinum. The heart is enlarged. There is left basilar airspace disease. There is opacity the right lung base w hich may represent airspace disease or layering effusion. There is vascular congestion. Overall aerat ion has improved. IMPRESSION: SLIGHT IMPROVEMENT IN THE APPEARANCE OF THE CHEST.
[2017-12-26] MEDS: BUDESONIDE 1 MG/2 ML NEBU INHALATION SCH ×2 (07:27→19:49)
--- NOTE | 2017-12-26 08:13 | P.PN ---
Subjective Progress Note Date: 12/26/17 Principal diagnosis: Status post one-vessel bypass grafting and mitral valve replacement Progress note dated 11/29/2017 This is a 67-year-old female status post one-vessel bypass grafting and mitral valve replacement. She apparently had surgery on the . Today is postop day #3. The patient currently remains on the mechanical ventilator. Her vent settings are the assist control mode rate of 1210 of I am is 550 FiO2 50% PEEP of 5. Arterial blood gases show a PaO2 of 135 a PaCO2 of 36 and a pH of 7.47. I'm to make a few changes including bumping the rate up from 12 to 20, and decreasing the tidal volume from 550 down to 400, and dropping the FiO2 from 50- 40%. The patient may not be weaned of old low because she remains on insulin drip at 1 unit per hour, Primacor 0.2 mics per kilogram per minute, norepinephrine at 2 mics per minute, half normal saline at 30 mL an hour and propofol at 25 g kilogram per minute. Chest x-rays consistent with fluid overload but bibasilar infiltrates and small effusions and microbiology is negative. The rest of the labs medications and x-rays are all reviewed. Progress note dated 11/30/2017 This is a 67-year-old female status post one-vessel bypass grafting and mitral valve replacement. She had surgery on the . She is postop day #4. She remains on mechanical ventilator. Yesterday, her chest x-ray showed evidence of fluid overload. She did get some diuretics. Today's chest x-ray still shows evidence of fluid overload although it might be slightly improved. She's currently still on the mechanical ventilator on the assist control mode, rate of 26, tidal volume 400, PEEP of 8, FiO2 40%. The patient's arterial blood gases show a PaO2 of 94 and pH 7.46 in a PaCO2 of 41. The patient will get a daily eruption of sedation and a spontaneous breathing trial. The patient remains on norepinephrine at 3 mcg/m, propofol at 30 mics per kilogram per minute, Primacor 0.2 mics per kilogram per minute, half normal saline IV at 15 mL an hour and vital 1.2 at 60 with a goal of 60 mL an hour. The patient failed her spontaneous breathing trial yesterday very quickly, and afterwards, she became dyssynchronous with the ventilator and I had to bump up the PEEP level to 8 and increase her respiratory rate to 26. We also dropped the tidal volume down to 400. She is much more in synchrony today. Progress note dated 12/01/2017 This is a 67-year-old female who is postop day #5, status post one-vessel bypass grafting and mitral valve replacement. She also has a history of postoperative respiratory failure with failure to wean. She was extubated yesterday though. Chest x-ray has evidence of fluid overload which actually is improved. In addition, the patient had acute blood loss anemia requiring blood transfusion postsurgically, hypertension severe mitral regurgitation left subclavian stenosis paroxysmal atrial fibrillation GI bleed and obesity. Yesterday, post extubation we gave the patient 1 shot of Solu-Medrol 60 mg IV push and also put her on BiPAP at 14/5 and 40%. Chest x-ray does show improvement. Today her hemoglobin is below 7 and she'll receive 1 unit of blood followed by some Lasix IV. In addition, I may add on some IV site Medrol and a smaller dose than normal and also some Pulmicort 1 mg twice a day. Progress note dated 12/02/2017 67-year-old female who is postop day #6 status post single-vessel bypass grafting and mitral valve replacement. The patient has been doing very well the last day and a half to 2 days. She has a history of postoperative respiratory failure and initially, failure to wean. She was extubated 2 days ago. She has had to use of BiPAP on and off since that time. She did receive 1 unit of PRBCs yesterday followed by some Lasix 40 mg IV push. Her chest x- ray my opinion still so-so some fluid overload with a small pool of pleural effusion. Other than that, the patient seemed be doing relatively well. She has a history of hypertension severe mitral regurgitation blood loss anemia following surgery left subclavian stenosis paroxysmal atrial fibrillation GI bleed and obesity. This morning, she'll come off the BiPAP and go back to nasal O2. She prefers a nasal O2 over the BiPAP device. She may have had an episode of aspiration last night. Speech pathology was consulted. In addition , I did check for a DVT in the right upper extremity and the Doppler was negative. Progress note dated 12/03/2017 67-year-old female postop day #7, status post single-vessel bypass grafting and mitral valve replacement. The patient has been doing relatively well although this morning she was a bit more short of breath. Chest x-ray does show some fluid overload. She's been on and off of BiPAP. This morning she was on O2 nasal cannula at 3 L. The cardiothoracic practitioner thought she was a bit more short of breath I went and saw her. I looked at her chest x-ray. We asked her to go back on BiPAP at 14 and 5 and 40% and we also gave her Lasix 60 mg IV push. She seemed be doing a lot better now. She's not receiving any IV fluids. Chest x-ray does show fluid overload. Again the Lasix was given this morning. She was a bit to This morning. Breathing about 25 times a minute. No swapnil distress. In addition, she has a history of hypertension severe mitral regurgitation blood loss anemia following her open heart surgery, left subclavian artery stenosis paroxysmal atrial fibrillation GI bleed and obesity. Progress note dated 12/04/2017 67-year-old female, postop day #8, status post single-vessel bypass grafting and mitral valve replacement. The patient's overall situation is been reasonable. She seemed to do do better while she is on BiPAP therapy. When she is a bit more short of breath, she does poorly when she's not on BiPAP. Chest x-ray shows some fluid overload. She has some cephalization to the upper lobes. In addition, she is either consolidation atelectasis or infiltrates in the lower lobes. In addition, probably has some pleural effusions bilaterally. Currently she is on 7 L high flow. She's not receiving any IV fluids. When she is on BiPAP, she is on settings of 14 and 5 and 40%. She did receive some Lopressor for atrial fibrillation with RVR. Cardiothoracic surgery ask about antibiotics for possible pneumonia. Is not unreasonable to add some antibiotics to her regimen. She may have some pneumonia hiding in the lung spaces bilaterally. She isn't producing any phlegm. There's been no fever or chills. Other than that, she is doing reasonably well. Labs x-rays a medications are all reviewed. Progress note dated 12/20/2017 This is a 67-year-old female here in the hospital since November 25. The patient had a one-vessel bypass on the any mitral valve repair/replacement as well as a modified maze procedure on the . She was initially extubated on November 30 of BiPAP. When I left her last, which was on December 04, she was postop day #8 status post bypass grafting and mitral valve replacement. She seemed to do pretty well at that time on BiPAP therapy. Since that time, she's had a cardioversion on December 07 a dehiscence of her sternal wound on December 08 and a sister neck to me on December 10. She currently remains intubated. She has been on PSV 10 CPAP and yesterday she spent 10-12 hours on the settings. She apparently is going for a flap repair on December 21 which is tomorrow. She's getting saline IV at KVO and vital high protein at 40. Her vent settings include the assist control mode rate of 14 tidal volume 500 FiO2 40% PEEP of 5. Arterial blood gases show a PaO2 of 108 a PaCO2 of 45 and a pH of 7.47. I'm inclined not to wean her today given the fact that she'll be going for a flap repair tomorrow. In addition, her respiratory rates a bit high in her heart rate is high. We will go do a daily interruption of sedation and attempt a spontaneous breathing trial. Progress note dated 12/21/2017 This is a 67-year-old female here in the hospital since every . The patient had a one-vessel bypass on the and mitral valve replacement. She also had a modified maze procedure on the same day. She was initially extubated on eic 2 BiPAP. When I left her last, she was doing recently well on and off of BiPAP. Currently, the patient is going to the operating room today for a flap repair to be done by the plastic surgeon. The patient had a cardioversion on December 07, a dehiscence of her sternal incision on December 08, and a sternectomy on December 10. Currently, she is on the assist control mode with a tidal volume 500, a rate of 14, and FiO2 of 40% to be reduced down to 30%, and a PEEP of 5. Arterial blood gases show a PaO2 of 148, a PaCO2 of 36 and a pH of 7.49. The patient's on a saline IV at 20 mL an hour, propofol at 30 mics per kilogram per minute tube feeds which are on hold for the surgery. Again she is going to have a flap repair today. Chest x-ray shows similar changes to yesterday. Progress note dated 12/22/2017 67-year-old female who's been in the hospital since November 25. The patient had a one-vessel bypass grafting on the and mitral valve replacement. She also had a modified maze procedure on the same day. She was initially extubated on November 30 to BiPAP. The patient had also to complications after I saw her last including on the need for cardioversion on December 07, dehiscence of her sternal incision on December 08, and sternectomy on December 10. Yesterday, she had a flap repair done by one of the plastic surgeons. She is postop day #1 for that. This morning she was on the assist control mode rate of 14, tidal volume 500, FiO2 30%, and PEEP of 5. Her arterial blood gases show a PaO2 of 95 a PaCO2 of 39 and a pH of 7.49. At that time the patient was on propofol at 25 mcg/m, a saline IV at KVO and vital high protein at a rate of 30 with a goal of 40. The patient looks great today and we went ahead and extubated her to BiPAP. She is on 10 and 5 and 40%. Seemed be doing relatively well with that at the current time. Progress note dated 12/26/2017 67-year-old female who's been in the hospital since November 25. The patient had a one-vessel bypass grafting on the and a mitral valve replacement on that same day. She also had a modified maze procedure on the same day. She was initially extubated on November 30 to BiPAP. The patient was extubated again on December 22 reintubated on the and had a tracheostomy tube placed on December 24. In addition, she had a cardioversion on December 07 a wound dehiscence on December 08 and a sternectomy on December 10. She is status post flap repair postop day #5. Yesterday, she spent a fair amount of time on pressure support of 10 and CPAP of 5. Currently, she is on the ventilator. Her vent settings include the assist control mode with a rate of 20 tidal volume 400 FiO2 35% PEEP of 5. Arterial blood gases show a PaO2 of 107 a PaCO2 47 and a pH of 7.43. Her IV is dextrose at KVO. She's not getting any propofol. A Dobbhoff tube was placed 2 days ago and she's getting tube feeds through that. She is getting vital high protein at a rate of 40. Goal rate is yet to be calculated. Chest x-ray shows mild diffuse bilateral infiltrates. All in all, she has improved. Prognosis remains guarded still. Objective - Vital Signs Vital signs: Vital Signs Temp 98.1 F 12/26/17 00:00 Pulse 92 12/26/17 07:57 Resp 21 12/26/17 06:00 BP 116/54 12/19/17 10:00 Pulse Ox 99 12/26/17 00:00 Intake & Output 12/25/17 12/26/17 12/26/17 18:59 06:59 18:59 Intake Total 909 616 Output Total 1440 1025 Balance -531 -409 Weight 109.6 kg Intake: IV 599 56 Dextrose 5%-0.45% NaCl 1, 160 20 000 ml @ 10 mls/hr IV . Q24H [facility] Rx#:[id number] Fluconazole in NaCl,Iso- 100 Osm 200 mg In Saline 1 100ml.bag @ 100 mls/hr IVPB DAILY [facility] Rx#: [id number] Meropenem 1 gm In Sodium 200 Chloride 0.9% 100 ml @ 100 mls/hr IVPB Q8HR [facility] Rx#:[id number] Potassium Chloride 20 meq 100 In Water For Injection 1 100ml.bag @ 50 mls/hr IVPB ONCE ONE Rx#: [id number] Pressure Bag 39 36 Tube Feeding 280 560 Other 30 Output: Drainage 895 715 Medial Abdomen 80 240 Right Abdomen 815 475 Urine 545 310 Other: Voiding Method Indwelling Catheter Indwelling Catheter ABP, PAP, CO, CI - Last Documented Arterial Blood Pressure 111/55 Pulmonary Artery Pressure 38/33 Cardiac Output 5.8 Cardiac Index 2.9 - Exam No acute distress, The patient's currently on PSV 10 CPAP of 5. HEENT examination is grossly unremarkable. Mucous membranes are moist. No oral lesions. Neck supple. Full range of motion. No adenopathy thyromegaly or neck vein distention. There is a midline tracheostomy. Cardiovascular examination reveals regular rhythm rate. S1-S2 normal. No S3 or S4. No discernible murmur noted. Lungs reveal very coarse bilateral breath sounds. Her sounds are equal bilaterally. No wheezes. A few scattered crackles. Abdomen soft bowel sounds are heard. No masses or tenderness. Extremities are intact. No cyanosis or clubbing. There is slight edema. Skin is without rash or lesion. Neurologic examination is difficult to assess, but she is awake and alert - Labs CBC & Chem 7: 12/26/17 06:01 12/26/17 06:01 Labs: Abnormal Lab Results - Last 24 Hours (Table) 12/25/17 12/26/17 12/26/17 Range/Units 12:10 01:08 05:07 RBC (3.80-5.40) m/uL Hgb (11.4-16.0) gm/dL Hct (34.0-46.0) % MCHC (31.0-37.0) g/dL RDW (11.5-15.5) % Neutrophils # (1.3-7.7) k/uL Lymphocytes # (1.0-4.8) k/uL ABG pCO2 47 H (35-45) mmHg ABG HCO3 31 H (21-25) mmol/L ABG Total CO2 33 H (19-24) mmol/L ABG O2 Saturation 99.1 H (94-97) % Sodium (137-145) mmol/L Potassium (3.5-5.1) mmol/L Carbon Dioxide (22-30) mmol/L BUN (7-17) mg/dL Glucose (74-99) mg/dL POC Glucose (mg/dL) 100 H 110 H (75-99) mg/dL AST (14-36) U/L Total Protein (6.3-8.2) g/dL Albumin (3.5-5.0) g/dL 12/26/17 12/26/17 12/26/17 Range/Units 05:57 06:01 06:01 RBC 2.95 L (3.80-5.40) m/uL Hgb 7.8 L (11.4-16.0) gm/dL Hct 25.8 L (34.0-46.0) % MCHC 30.2 L (31.0-37.0) g/dL RDW 19.3 H (11.5-15.5) % Neutrophils # 7.9 H (1.3-7.7) k/uL Lymphocytes # 0.5 L (1.0-4.8) k/uL ABG pCO2 (35-45) mmHg ABG HCO3 (21-25) mmol/L ABG Total CO2 (19-24) mmol/L ABG O2 Saturation (94-97) % Sodium 146 H (137-145) mmol/L Potassium 3.4 L (3.5-5.1) mmol/L Carbon Dioxide 31 H (22-30) mmol/L BUN 40 H (7-17) mg/dL Glucose 114 H (74-99) mg/dL POC Glucose (mg/dL) 119 H (75-99) mg/dL AST 55 H (14-36) U/L Total Protein 5.5 L (6.3-8.2) g/dL Albumin 2.6 L (3.5-5.0) g/dL Microbiology - Last 24 Hours (Table) 12/24/17 11:30 Catheter Tip Culture - Preliminary Catheter Tip Assessment and Plan Assessment: Assessment Postop day #26 status post one-vessel bypass grafting and mitral valve replacement Postoperative respiratory failure with failure to wean, with extubation occurring on 11/30/2017, and subsequent extubation on 12/22/2017. She was reintubated on December 23, and had a tracheostomy performed on 12/24/2017 Status post cardioversion on December 07 Status post wound dehiscence on December 08 Status post sternectomy on December 10 Anticipated flap repair on 12/21/2017, postop day #5 Reintubation and mechanical ventilation with failure to wean Chest x-ray evidence of fluid overload Acute blood loss anemia requiring blood transfusion History of hypertension History of severe mitral regurgitation History of left subclavian stenosis Paroxysmal atrial fibrillation History of GI bleed Obesity Possible aspiration with aspiration pneumonia Plan: Plan dated 11/29/2017 I will make some vent changes today including repeat increasing the rate from 12 -20, dropping the time of I'm down from 550 mL down to 400 mL and also reducing the FiO2 40%. We'll see if we can wean her off the norepinephrine holding propofol and do a daily eruption of sedation to evaluate for spontaneous breathing trial. Microbiology is negative. Labs x-rays and medications all reviewed. Prognosis is guarded. Additional recommendations and suggestions are forthcoming. I believe she would benefit from some diuretics. Blood gases are reviewed. Plan dated 11/30/2017 The patient will again have a daily eruption of sedation with a spontaneous breathing trial. She still remains on a number of different IV medications including norepinephrine, fall, Primacor. Arterial blood gases today are very reasonable. Her vent settings were adjusted yesterday. She's getting nourishment. We'll continue to follow closely. Labs x-rays a medications are reviewed. Hopeful improvement in the next day or so and eventual extubation. Plan dated 11/23/2017 The patient seems to be doing a bit better. Her chest x-ray certainly improved. She'll receive 1 unit of blood. She feels better. She still on BiPAP. She has significant edema throughout. Chest x-ray is improved. I do agree with 1 unit of blood followed by Salma. We'll continue to follow closely. Medications x-rays and labs are reviewed. Plan dated 12/02/2017 The patient will come off the BiPAP morning go back on nasal O2. Speech pathology was consulted. Chest x-ray looks about the same or slightly better. Still showing a bit of fluid overload. In addition, a Doppler of the right upper extremity was negative for DVT. The patient otherwise seems be doing reasonably well. We'll continue to follow. She is on Primacor and 0.2 mics per kilogram per minute and a half normal saline IV at KVO. BiPAP settings are 14/5 and 40%. Critical care time 34 minutes The patient is doing better after the BiPAP was placed on her. The patient also received Lasix 60 mg IV push. The patient's chest x-ray labs and medications are all reviewed. She's not receiving any additional fluid. We'll continue to follow. Prognosis is guarded. Critical care time 34 minutes. Plan dated 12/04/2017 The patient seemed be doing about the same as she was yesterday. Chest x-ray, in my opinion still shows evidence of fluid overload. She has cephalization and bilateral pleural effusions. Is a possibility she could have pneumonia. She's not producing any phlegm. She's been afebrile. I will add some Zosyn to her regimen. It certainly empiric. She should spend some time on BiPAP as well as a nasal O2. She seemed to do better on the BiPAP at 14 and 5 and 40%. She did have to receive some Lopressor for atrial fibrillation and RVR. I'm sure that's contributing to her shortness of breath as well. She does not have a lot of reserve. Prognosis is guarded. Plan dated 12/20/2017 I'm sorry to see that the patient still here in the ICU. It appears the patient 's had a number of different complications since I saw her last on December 04 including but not limited to cardioversion sternal dehiscence neck to me and anticipated flat repair tomorrow. The patient will be given a daily eruption of sedation and a spontaneous breathing trial. I'm not hopeful given her chronic illness for the current time. Additional recommendations and suggestions are forthcoming. In my opinion, we'll need a tracheostomy. We'll continue to follow. Prognosis is guarded. Meds labs and x-rays are all reviewed. Critical care time 31 minutes Plan dated 12/21/2017 The patient down is going to go to the operating room today for a flap repair by the plastic surgeon. No weaning today. Overall prognosis remains guarded. Labs x-rays a medications are all reviewed. We will continue to follow the patient and provide full supportive care with hopeful full recovery. Critical care time 30 minutes Plan dated 12/22/2017 The patient seemed be doing relatively well. Her weaning parameters were reasonably good. She passed her cuff leak. We went ahead and extubated her to BiPAP at 10 and 5 and 40%. We'll continue to watch her carefully. Her chest x- ray looked improved. There was small effusions bilaterally. We'll continue to follow. Prognosis is guarded. Critical care time is 33 minutes Plan dated 12/26/2017 The patient be placed back on PSV and CPAP at 10 and 5 respectively. She is on 35%. PaO2 is excellent. The patient's getting nourishment with a vital high protein. Were using the Dobbhoff tube for that. Blood gases are good. We'll continue to follow. General clinical status is improved. No additional recommendations are made. Labs x-rays a medications are reviewed. Prognosis is guarded. Critical care time 33 minutes. Time with Patient: Greater than 30
[2017-12-26] MEDS: LACTATED RINGERS 1,000 ML IV SCH (08:16)
[2017-12-26] MEDS: LACTOBACILLUS ACIDOPH & BULGAR 1 EACH PACKET PO SCH ×3 (08:18→21:30)
[2017-12-26] MEDS: HEPARIN SODIUM,PORCINE 5,000 UNIT/ML 1 ML VIAL SQ SCH ×2 (08:24→17:08)
[2017-12-26] MEDS: PANTOPRAZOLE 40 MG TABLET PO SCH (08:24)
[2017-12-26] MEDS: FLUCONAZOLE IN NACL,ISO-OSM 200 MG in SALINE 1 100ML.BAG IVPB SCH (08:25)
[2017-12-26] MEDS: AMIODARONE 200 MG TAB PO SCH (08:25)
[2017-12-26] MEDS: ATORVASTATIN 40 MG TAB PO SCH (08:25)
[2017-12-26] MEDS: CHLORHEXIDINE GLUCONATE 15 ML CUP MUCOUS MEM SCH ×2 (08:25→20:00)
[2017-12-26] MEDS: BISACODYL 10 MG SUPP RECTAL SCH (08:25)
[2017-12-26] MEDS: METOPROLOL TARTRATE 50 MG TAB NG-TUBE SCH ×2 (08:25→20:01)
[2017-12-26] MEDS: ASPIRIN 81 MG PO SCH (08:25)
[2017-12-26] MEDS ORDERED: POTASSIUM CHLORIDE 20 MEQ in WATER FOR INJECTION 1 100ML.BAG IVPB ONE ×2 (09:00→23:29)
--- NOTE | 2017-12-26 10:31 | P.PN ---
Subjective Progress Note Date: 12/26/17 Principal diagnosis: Severe mitral valve regurgitation. Coronary artery disease. Preoperative paroxysmal atrial fibrillation on outpatient Coumadin for anticoagulation. Recent hospitalization for lower GI bleed, and duodenal ulcer. History of left subclavian stenosis with stent placement 2014 with recent discovery of critical re-in-stent stenosis. Previous tobacco dependence with preoperative FEV1 60% of predicted. Hypertension. Hyperlipidemia. Depression on Lexapro. Gallbladder disease. Family history of heart disease. Preoperative nasal swab positive for MRSA. Preoperative anemia. POD #31 and Mitral valve replacement using a 25 mm Ribera bioprosthetic tissue valve. Coronary artery bypass grafting 1, a reverse greater saphenous vein graft to the obtuse marginal coronary artery. Endoscopic harvesting of the left greater saphenous vein. Modified MAZE procedure. The report wasn't back yet not back in Ligation of the left atrial appendage using a 40 mm AtriClip. Epi- aortic ultrasound. Intraoperative transesophageal echocardiogram. Intraoperative left ventricular wall tear, an unexpected but potential outcome of surgery. Acute blood loss anemia, an expected outcome given patient's preoperative anemia and intraoperative bleeding. Postoperative prolonged mechanical ventilation secondary to hemodynamic instability, an unexpected but potential outcome of surgery given the extensive nature of her postoperative course. Sternal incision dehiscence, possible outcome of surgery given the patient's obesity, nutrition status and ability. POD #16 sternal wound debridement with placement of wound VAC. POD #11 bronchoscopy and bronchoalveolar lavage of the left lower lobe and extraction of mucous plug POD #5 right rectus abdominous muscle flap closure, open sternal wound. Closure of sternal wound and muscle flap with skin graft substitute, 238 cm. Implantation of reconstructive graft for closure of abdominal wall wound, [address] Krause. Postoperative left lower lobe collapse secondary to mucous plugging, and unexpected but potential outcome of surgery. Bronchial washings positive for Rachana species. Patient is currently lying in bed with her head elevated at 45. She is in no acute distress. Her tracheostomy is midline and intact, sutures in place, she remains with mechanical ventilator support. Sedation has been on hold. Bedside telemetry showing normal sinus rhythm heart rate 81. Dobbhoff tube placed under endoscopy yesterday performed by Dr. Jahaira Plummer. Dobbhoff tube remains patent and functioning with 2 feedings infusing at 52 mL per hour with automatic water flushes. The patient is shaking her head no when asked if having any pain. Objective - Vital Signs Vital signs: Vital Signs Temp 99.0 F 12/26/17 08:00 Pulse 92 12/26/17 08:00 Resp 20 12/26/17 08:00 BP 116/54 12/19/17 10:00 Pulse Ox 97 12/26/17 08:00 Intake & Output 12/25/17 12/26/17 12/26/17 18:59 06:59 18:59 Intake Total 909 616 223 Output Total 1440 1025 45 Balance -531 -409 178 Weight 109.6 kg Intake: IV 599 56 113 Dextrose 5%-0.45% NaCl 1, 160 20 10 000 ml @ 10 mls/hr IV . Q24H [facility] Rx#:[id number] Fluconazole in NaCl,Iso- 100 100 Osm 200 mg In Saline 1 100ml.bag @ 100 mls/hr IVPB DAILY [facility] Rx#: [id number] Meropenem 1 gm In Sodium 200 Chloride 0.9% 100 ml @ 100 mls/hr IVPB Q8HR [facility] Rx#:[id number] Potassium Chloride 20 meq 100 In Water For Injection 1 100ml.bag @ 50 mls/hr IVPB ONCE ONE Rx#: [id number] Pressure Bag 39 36 3 Tube Feeding 280 560 80 Other 30 30 Output: Drainage 895 715 Medial Abdomen 80 240 Right Abdomen 815 475 Urine 545 310 45 Other: Voiding Method Indwelling Catheter Indwelling Catheter ABP, PAP, CO, CI - Last Documented Arterial Blood Pressure 129/61 Pulmonary Artery Pressure 38/33 Cardiac Output 5.8 Cardiac Index 2.9 - Constitutional General appearance: Present: cooperative, no acute distress, obese - Neck Details: Neck is supple, no JVD, no lymphadenopathy. Tracheostomy tube is midline and intact, sutures in place. - Respiratory Details: Lungs sounds essentially diminished throughout. Respirations are symmetrical and nonlabored with mechanical ventilator support. Oxygen saturation are 99% with current ventilator settings. Current ventilator settings are as follows: CPAP 5, pressure support 10, FiO2 35%. #8 Shiley tracheostomy tube midline and intact with mechanical ventilator support in place. - Cardiovascular Details: Regular rhythm and rate. S1 and S2 present, negative for S3, gallop or murmur. Chest with open wound, postoperative muscle flap performed by Dr. Galindo. Dressing with scant serous drainage. Generalized anasarca with weeping. Vance wraps in place from toes to thighs to bilateral lower extremities. Knee-high sequential compression devices in place to her bilateral lower extremities. Left brachial PICC line in place and functioning. Right brachial arterial line in place and functioning. - Gastrointestinal Gastrointestinal Comment(s): Abdomen is soft, nontender and nondistended. Obese. Dobbhoff tube in place with vital high-protein to feeding infusing at 52 mL per hour with 60 mL every 6 hours of free water flushes. Last documented bowel movement on 12/24/2017. - Genitourinary Genitourinary Comment(s): Mason catheter for accurate I&O. Draining clear yellow urine. 340 mL output in the last 8 hours. - Integumentary Integumentary Comment(s): Skin is warm and dry. No clubbing or cyanosis. Anasarca with scattered areas of blistering and weeping thin serous drainage. Pressure ulcerations to her buttocks with local wound care. Ulceration to her right wrist area with dressing in place with scant serous drainage. Dressing in place to her chest wound. Dressing change per Dr. Galindo's orders. - Neurologic Neurologic Comment(s): Alert and following verbal commands. Nodding her head yes and no appropriately to questions. Moving all 4 extremities appropriately with weak movements. - Musculoskeletal Musculoskeletal: Present: generalized weakness, strength equal bilaterally - Psychiatric Psychiatric Comment(s): Flat affect. Psychiatric: Present: intact judgment & insight - Allied health notes Allied health notes reviewed: nursing - Labs CBC & Chem 7: 12/26/17 06:01 12/26/17 06:01 Labs: Abnormal Lab Results - Last 24 Hours (Table) 12/25/17 12/26/17 12/26/17 Range/Units 12:10 01:08 05:07 RBC (3.80-5.40) m/uL Hgb (11.4-16.0) gm/dL Hct (34.0-46.0) % MCHC (31.0-37.0) g/dL RDW (11.5-15.5) % Neutrophils # (1.3-7.7) k/uL Lymphocytes # (1.0-4.8) k/uL ABG pCO2 47 H (35-45) mmHg ABG HCO3 31 H (21-25) mmol/L ABG Total CO2 33 H (19-24) mmol/L ABG O2 Saturation 99.1 H (94-97) % Sodium (137-145) mmol/L Potassium (3.5-5.1) mmol/L Carbon Dioxide (22-30) mmol/L BUN (7-17) mg/dL Glucose (74-99) mg/dL POC Glucose (mg/dL) 100 H 110 H (75-99) mg/dL AST (14-36) U/L Total Protein (6.3-8.2) g/dL Albumin (3.5-5.0) g/dL 12/26/17 12/26/17 12/26/17 Range/Units 05:57 06:01 06:01 RBC 2.95 L (3.80-5.40) m/uL Hgb 7.8 L (11.4-16.0) gm/dL Hct 25.8 L (34.0-46.0) % MCHC 30.2 L (31.0-37.0) g/dL RDW 19.3 H (11.5-15.5) % Neutrophils # 7.9 H (1.3-7.7) k/uL Lymphocytes # 0.5 L (1.0-4.8) k/uL ABG pCO2 (35-45) mmHg ABG HCO3 (21-25) mmol/L ABG Total CO2 (19-24) mmol/L ABG O2 Saturation (94-97) % Sodium 146 H (137-145) mmol/L Potassium 3.4 L (3.5-5.1) mmol/L Carbon Dioxide 31 H (22-30) mmol/L BUN 40 H (7-17) mg/dL Glucose 114 H (74-99) mg/dL POC Glucose (mg/dL) 119 H (75-99) mg/dL AST 55 H (14-36) U/L Total Protein 5.5 L (6.3-8.2) g/dL Albumin 2.6 L (3.5-5.0) g/dL Microbiology - Last 24 Hours (Table) 12/24/17 11:30 Catheter Tip Culture - Preliminary Catheter Tip - Imaging and Cardiology Chest x-ray: report reviewed, image reviewed Assessment and Plan (1) Acute blood loss as cause of postoperative anemia Current Visit: Yes Status: Acute Code(s): D62 - ACUTE POSTHEMORRHAGIC ANEMIA SNOMED Code(s): 49216567471437536 (2) CAD (coronary artery disease) Current Visit: Yes Status: Chronic Code(s): I25.10 - ATHSCL HEART DISEASE OF [place] CORONARY ARTERY W/O ANG PCTRS SNOMED Code(s): 33491125 (3) Family history of coronary artery disease Current Visit: Yes Status: Chronic Code(s): Z82.49 - FAMILY HX OF ISCHEM HEART DIS AND OTH DIS OF THE CIRC SYS SNOMED Code(s): 795308143 (4) Hyperlipidemia Current Visit: Yes Status: Chronic Code(s): E78.5 - HYPERLIPIDEMIA, UNSPECIFIED SNOMED Code(s): 99586581 (5) Hypertension Current Visit: Yes Status: Chronic Code(s): I10 - ESSENTIAL (PRIMARY) HYPERTENSION SNOMED Code(s): 44670155 (6) Severe mitral regurgitation Current Visit: Yes Status: Chronic Code(s): I34.0 - NONRHEUMATIC MITRAL ( VALVE) INSUFFICIENCY SNOMED Code(s): 16959805 (7) Stenosis of left subclavian artery Current Visit: Yes Status: Chronic Code(s): I77.1 - STRICTURE OF ARTERY SNOMED Code(s): 10870284174309869 (8) PAD (peripheral artery disease) Current Visit: No Status: Acute Code(s): I73.9 - PERIPHERAL VASCULAR DISEASE , UNSPECIFIED SNOMED Code(s): 446132795 (9) History of GI bleed Current Visit: No Status: Resolved Code(s): Z87.19 - PERSONAL HISTORY OF OTHER DISEASES OF THE DIGESTIVE SYSTEM SNOMED Code(s): 501368539 (10) Paroxysmal atrial fibrillation Current Visit: No Status: Resolved Code(s): I48.0 - PAROXYSMAL ATRIAL FIBRILLATION SNOMED Code(s): 196819488 (11) Elevated aspartate aminotransferase level Current Visit: Yes Status: Acute Code(s): R74.0 - NONSPEC ELEV OF LEVELS OF TRANSAMNS & LACTIC ACID DEHYDRGNSE SNOMED Code(s): 734987679 Plan: 1. Continue low-dose aspirin, statin, subcutaneous heparin, beta krunal. Will increase beta krunal therapy as tolerated. 2. Continue amiodarone to 200 mg daily per Dobbhoff daily for history of paroxysmal atrial fibrillation on home amiodarone. 3. Pulmonary and ventilator management per Dr. Garcia's recommendations. 4. Continue meropenem, vancomycin and Diflucan per Dr. Olivera management 5. Continue tube feedings per dietary recommendations per Dobbhoff tube. Increase free water flushes to 60 mL every 6 hours. 6. Will monitor labs, chest x-rays. 7. Bronchodilators per pulmonology management. 8. Replace potassium per protocol. 9. GI/DVT prophylaxis. 10. Dressing changes to sternal wound to be done daily by cardiothoracic surgeon or nurse practitioner. 11. Keep HENRI drains in place. 12. Continue Mason catheter for accurate I&O. 13. Albumin 25% followed by Lasix 40 mg IV 1 today. 14. More recommendations as patient progresses in her care. Time with Patient: Greater than 30
[2017-12-26] MEDS ORDERED: FUROSEMIDE 10 MG/ML 4 ML VIAL IV STA (10:32)
[2017-12-26] MEDS ORDERED: ALBUMIN HUMAN 25% 50 ML in EMPTY BAG 1 BAG IVPB ONE ×2 (11:00→18:00)
[2017-12-26 11:29] LABS: Glucose,Whole Blood 123 mg/dL (75-99)
[2017-12-26] MEDS: VANCOMYCIN 1,500 MG in SODIUM CHLORIDE 0.9% 250 ML IVPB SCH (13:14)
--- NOTE | 2017-12-26 15:04 | PN ---
PROGRESS NOTE Maritza is a 67-year-old lady with history of coronary artery disease, status post CABG, mitral regurgitation status post mitral valve replacement and chronic atrial fibrillation, whose postop course is complicated by sternal wound dehiscence and has had a tracheostomy. Currently has a Dobbhoff tube in and she remains in sinus rhythm on Cordarone. She is not on an anticoagulant. Denies any symptoms. EXAM: Vital signs are stable. Chest exam reveals diminished air entry at the bases. Heart exam reveals first and second heart sounds. No gallop. Exam of extremities did not reveal any edema. LAB: Showed a potassium of 3.4, creatinine is 0.9, hemoglobin is 7.8. ASSESSMENT: 1. Coronary artery disease, status post coronary artery bypass grafting. 2. Status post mitral valve replacement. 3. Paroxysmal atrial fibrillation. PLAN: Patient is currently in sinus rhythm. Will continue with her current medications. MMODL / IJN: [id number] /
[2017-12-26 17:33] LABS: Glucose,Whole Blood 126 mg/dL (75-99)
[2017-12-26] MEDS: DEXTROSE 5%-0.45% NACL 1,000 ML IV SCH (17:36)
[2017-12-26] MEDS ORDERED: FUROSEMIDE 10 MG/ML 4 ML VIAL IV ONE (18:30)
[2017-12-26] MEDS: ESCITALOPRAM 10 MG TAB PO SCH (20:00)
[2017-12-26] MEDS: SENNOSIDES-DOCUSATE SODIUM 1 EACH TAB PO SCH (20:00)
[2017-12-26] MEDS: POTASSIUM BICARBONATE/CIT AC 20 MEQ TABLET.EFF NG-TUBE SCH ×2 (23:13→23:28)
[2017-12-26 23:40] LABS: Glucose,Whole Blood 113 mg/dL (75-99)
[2017-12-27] MEDS: HEPARIN SODIUM,PORCINE 5,000 UNIT/ML 1 ML VIAL SQ SCH ×3 (01:03→16:59)
[2017-12-27] MEDS: INSULIN ASPART 100 UNIT/ML 1 ML 10 ML VIAL SQ SCH ×4 (01:04→18:32)
[2017-12-27] MEDS: MORPHINE SULFATE/PF 10MG/10ML VL IVP PRN (01:36)
[2017-12-27] MEDS: ALPRAZolam 0.25 MG TAB PO PRN (02:27)
[2017-12-27] MEDS: IPRATROPIUM-ALBUTEROL 3 ML NEB INHALATION SCH ×6 (02:58→23:12)
[2017-12-27 04:47] LABS: ABG Base Excess 7.1 mmol/L; ABG HCO3 32 mmol/L (21-25); ABG PCO2 57 mmHg (35-45); ABG PH 7.37 (7.35-7.45); ABG PO2 102 mmHg (83-108); ABG TCO2 34 mmol/L (19-24)
[2017-12-27 05:22] LABS: Anisocytosis Slight; Basophils % (A) 0 %; Eosinophils # (A) 0.2 k/uL (0-0.7); Eosinophils % (A) 2 %; HCT 27.4 % (34.0-46.0); Hypochromasia Marked; Lymphocytes # (A) 0.5 k/uL (1.0-4.8); Lymphocytes % (A) 5 %; MCH 25.9 pg (25.0-35.0); MCHC 29.3 g/dL (31.0-37.0); MCV 88.6 fL (80.0-100.0); Mean Platelet Volume 8.1; Monocytes # (A) 0.4 k/uL (0-1.0); Monocytes % (A) 4 %; Neutrophils # (A) 9.3 k/uL (1.3-7.7); Neutrophils % (A) 87 %; Platelet Count 427 k/uL (150-450); Poikilocytosis Slight; RBC 3.09 m/uL (3.80-5.40); RDW 19.7 % (11.5-15.5); WBC 10.7 k/uL (3.8-10.6)
[2017-12-27 05:33] LABS: Albumin 2.9 g/dL (3.5-5.0); Calcium 9.1 mg/dL (8.4-10.2); Phosphorus 4.2 mg/dL (2.5-4.5); Potassium 4.1 mmol/L (3.5-5.1); Total Bilirubin 0.7 mg/dL (0.2-1.3)
[2017-12-27] MEDS: ONDANSETRON 4 MG/2 ML VIAL IVP PRN ×2 (06:28→13:58)
[2017-12-27] MEDS: LACTATED RINGERS 1,000 ML IV SCH (06:29)
[2017-12-27] MEDS: BUDESONIDE 1 MG/2 ML NEBU INHALATION SCH ×2 (07:35→19:00)
[2017-12-27] MEDS: CHLORHEXIDINE GLUCONATE 15 ML CUP MUCOUS MEM SCH ×2 (08:29→20:04)
[2017-12-27] MEDS: LACTOBACILLUS ACIDOPH & BULGAR 1 EACH PACKET PO SCH ×3 (08:30→23:58)
[2017-12-27] MEDS: PANTOPRAZOLE 40 MG TABLET PO SCH (08:30)
[2017-12-27] MEDS: AMIODARONE 200 MG TAB PO SCH (08:30)
[2017-12-27] MEDS: FLUCONAZOLE IN NACL,ISO-OSM 200 MG in SALINE 1 100ML.BAG IVPB SCH (08:30)
[2017-12-27] MEDS ORDERED: METOCLOPRAMIDE 5 MG/ML 2 ML VIAL IVP SCH (08:30)
[2017-12-27] MEDS: ASPIRIN 81 MG PO SCH (08:30)
[2017-12-27] MEDS: METOPROLOL TARTRATE 50 MG TAB NG-TUBE SCH ×2 (08:30→20:04)
[2017-12-27] MEDS: ATORVASTATIN 40 MG TAB PO SCH (08:30)
[2017-12-27] MEDS ORDERED: ALBUMIN HUMAN 25% 50 ML in EMPTY BAG 1 BAG IVPB ONE (09:26)
--- NOTE | 2017-12-27 09:45 | P.PN ---
Subjective Progress Note Date: 12/27/17 A 67-year-old female patient was being seen in follow-up in the intensive care unit. The patient is postop day #32 following her cardiac surgery. The patient underwent a one-vessel bypass surgery and mitral valve replacement and I 'm seeing her today in follow-up. Events postop were all noted and I was updated by the nursing staff regarding details on her progress. The patient underwent a surgical flap of the sternal wound as the patient had wound dehiscence and infection and she is currently postop day #6. The patient also has a tracheostomy tube in place and the patient is postop day #3 post trach. The previous cultures have indicated Serratia marcescens and the patient remains on IV Merrem. Note that during the course of her ICU stay the patient developed complete left lung collapse and she required bronchoscopy and the sputum has indicated Rachana. She is also on Diflucan. The patient also has a tracheostomy tube in place and the patient is postop day #3 post trach. T This morning, the patient is awake and alert. She is following commands and answering questions. She is an assist-control mode of ventilation. The patient is being given brief trials with pressure support and she initially started tolerating pressure support for one hour then subsequently 2 hours. She is not ready for further weaning or prolonged periods where she is placed on pressure support. Currently she is on a assist-control mode at the rate of 20 with tidal volume 400, and 35% FiO2 with a PEEP of 5. She has a tracheostomy tube which is a Shiley trach tube #8. Surgical wound site on the tracheostomy tube is clean. The patient is not having significant orotracheal secretions. The patient is a bit tachypneic as her abdomen is somewhat distended on today's evaluation. I can't understand that the patient was throwing up throughout the night. Her abdomen is somewhat distended and tympanic. She is producing some loose bowel movements. The patient had a Dobbhoff catheter for enteral feeding and nutritional support. The feeding was stopped this morning. She is not complaining of any abdominal pain however abdomen is distended. On today's chest x-ray there is a large gastric bubble. There is also small bilateral pleural. Effusions. She has underlying cardiomegaly. Sternum stable clean and intact. The HENRI drain in the sternal wound is still in place. Her blood gases from today showed a pH of 7.37 with a pCO2 of 57 and pO2 of 102. Patient continues to be edematous in the upper and lower extremity more so in the legs. The patient is being diuresis with Lasix. The patient is a negative fluid balance of 471 mL over the past 24 hours. The patient is on no pressors. Cardiac rhythm is sinus rhythm. Objective - Vital Signs Vital signs: Vital Signs Temp 99.1 F 12/27/17 04:00 Pulse 92 12/27/17 08:00 Resp 20 12/27/17 07:00 BP 116/54 12/19/17 10:00 Pulse Ox 97 12/27/17 07:00 Intake & Output 12/26/17 12/27/17 12/27/17 18:59 06:59 18:59 Intake Total 1651 1203 65 Output Total 1615 1710 30 Balance 36 -507 35 Weight 109.1 kg Intake: IV 653 243 13 Albumin Human 25% 50 ml 50 In Empty Bag 1 bag @ 100 mls/hr IVPB ONCE ONE Rx#: [id number] Albumin Human 25% 50 ml 50 In Empty Bag 1 bag @ 100 mls/hr IVPB ONCE ONE Rx#: [id number] Dextrose 5%-0.45% NaCl 1, 70 110 10 000 ml @ 10 mls/hr IV . Q24H [facility] Rx#:[id number] Fluconazole in NaCl,Iso- 100 Osm 200 mg In Saline 1 100ml.bag @ 100 mls/hr IVPB DAILY [facility] Rx#: [id number] Potassium Chloride 20 meq 100 In Water For Injection 1 100ml.bag @ 50 mls/hr IVPB ONCE ONE Rx#: [id number] Potassium Chloride 20 meq 100 In Water For Injection 1 100ml.bag @ 50 mls/hr IVPB ONCE ONE Rx#: [id number] Pressure Bag 33 33 3 Vancomycin 1,500 mg In 250 Sodium Chloride 0.9% 250 ml @ 125 mls/hr IVPB Q24H [facility] Rx#:[id number] Oral 100 Tube Feeding 808 780 52 Other 90 180 Output: Drainage 645 680 Medial Abdomen 120 30 Right Abdomen 525 650 Urine 970 1030 30 Other: Voiding Method Indwelling Catheter Indwelling Catheter ABP, PAP, CO, CI - Last Documented Arterial Blood Pressure 119/62 Pulmonary Artery Pressure 38/33 Cardiac Output 5.8 Cardiac Index 2.9 - Exam - Constitutional General appearance: Present: cooperative, no acute distress, obese - Neck Details: Neck is supple, no JVD, no lymphadenopathy. Tracheostomy tube is midline and intact, sutures in place. - Respiratory Details: Lungs sounds essentially diminished throughout. Respirations are symmetrical and nonlabored with mechanical ventilator support. Oxygen saturation are 99% with current ventilator settings. Current ventilator settings is an assist- control: Cycle ventilator - Cardiovascular Details: Regular rhythm and rate. S1 and S2 present, negative for S3, gallop or murmur. Chest with open wound, postoperative muscle flap performed. Dressing with scant serous drainage. Generalized anasarca with weeping. Vance wraps in place from toes to thighs to bilateral lower extremities. Knee-high sequential compression devices in place to her bilateral lower extremities. Left brachial PICC line in place and functioning. Right brachial arterial line in place and functioning. - Gastrointestinal Gastrointestinal Comment(s): Abdomen is soft, yet this is distended and tympanic. The patient had diminished bowel sounds. No direct tenderness but no rebound tenderness. No guarding. Abdominal wound is dry clean and intact. - Genitourinary Genitourinary Comment(s): Mason catheter for accurate I&O. Draining clear yellow urine. - Integumentary Integumentary Comment(s): Skin is warm and dry. No clubbing or cyanosis. Anasarca with scattered areas of blistering and weeping thin serous drainage. Pressure ulcerations to her buttocks with local wound care. Ulceration to her right wrist area with dressing in place with scant serous drainage. Dressing in place to her chest wound. - Neurologic Neurologic Comment(s): Alert and following verbal commands. Nodding her head yes and no appropriately to questions. Moving all 4 extremities appropriately with weak movements. - Musculoskeletal Musculoskeletal: Present: generalized weakness, strength equal bilaterally - Psychiatric Psychiatric Comment(s): Flat affect. Psychiatric: Present: intact judgment & insight - Labs CBC & Chem 7: 12/27/17 05:10 12/27/17 05:10 Labs: Abnormal Lab Results - Last 24 Hours (Table) 12/26/17 12/26/17 12/26/17 Range/Units 11:27 17:31 21:31 WBC (3.8-10.6) k/uL RBC (3.80-5.40) m/uL Hgb (11.4-16.0) gm/dL Hct (34.0-46.0) % MCHC (31.0-37.0) g/dL RDW (11.5-15.5) % Neutrophils # (1.3-7.7) k/uL Lymphocytes # (1.0-4.8) k/uL Sodium (137-145) mmol/L Potassium 3.4 L (3.5-5.1) mmol/L Carbon Dioxide (22-30) mmol/L BUN (7-17) mg/dL Glucose (74-99) mg/dL POC Glucose (mg/dL) 123 H 126 H (75-99) mg/dL AST (14-36) U/L Total Protein (6.3-8.2) g/dL Albumin (3.5-5.0) g/dL 12/26/17 12/27/17 12/27/17 Range/Units 23:38 05:10 05:10 WBC 10.7 H (3.8-10.6) k/uL RBC 3.09 L (3.80-5.40) m/uL Hgb 8.0 L (11.4-16.0) gm/dL Hct 27.4 L (34.0-46.0) % MCHC 29.3 L (31.0-37.0) g/dL RDW 19.7 H (11.5-15.5) % Neutrophils # 9.3 H (1.3-7.7) k/uL Lymphocytes # 0.5 L (1.0-4.8) k/uL Sodium 148 H (137-145) mmol/L Potassium (3.5-5.1) mmol/L Carbon Dioxide 33 H (22-30) mmol/L BUN 41 H (7-17) mg/dL Glucose 113 H (74-99) mg/dL POC Glucose (mg/dL) 113 H (75-99) mg/dL AST 50 H (14-36) U/L Total Protein 6.0 L (6.3-8.2) g/dL Albumin 2.9 L (3.5-5.0) g/dL Microbiology - Last 24 Hours (Table) 12/24/17 11:30 Catheter Tip Culture - Final Catheter Tip Assessment and Plan Plan: Assessment 1 coronary artery bypass surgery with single-vessel bypass and mitral valve replacement/bioprosthetic valve. The patient is postop day #32 2 sternal wound infection with Serratia marcescens with subsequent dehiscence. The patient underwent wound debridement with subsequent muscle flap and the patient is postop day #6 3 prolonged ventilator dependent respiratory failure, status post tracheostomy tube insertion and the patient is postop day #3. The patient remains on assist control mode of ventilation. Not ready for weaning 4 acute on chronic respiratory failure, multifactorial. The patient's sternal wound and the muscle flap is healing for now. She is weak and she is not ready for further weaning based on her daily parameters. Doubt superimposed pneumonia at this point 5 increased edema both upper and lower extremities 6 paroxysmal atrial fibrillation current rhythm is sinus 7 peripheral vascular disease 8 left subclavian artery stenosis status post insertion of an endovascular stent 9 anemia, a expected outcome of prolonged ICU stay and multiple surgeries 10 abdominal distention with increased emesis. Rule out underlying ileus. Hold tube feeds 11 left lung collapse status post bronchoscopy and therapeutic it was suctioning. Patient has Rachana within the sputum currently on Diflucan 12 hypertension 13 hyperlipidemia PLAN I'll tube feeds for now. Obtain a CAT scan of the abdomen to rule out underlying ileus. Will need to be discussed the case with the plastic surgeon. If agreeable, or should be able to insert a PEG tube for enteral feeding and nutritional support. Continue vent support. Date the patient assist-control mode of ventilation as the patient is not ready for any weaning special with ongoing abdominal distention. Diuretics per CT surgery. Monitor hemoglobin. Keep same vent support. Blood gases was noted. We'll continue to follow. Critically care evaluation , 32 min. Family was informed and the case was discussed with the daughter. Condition is still critical. Time with Patient: Greater than 30
[2017-12-27] MEDS ORDERED: FUROSEMIDE 10 MG/ML 4 ML VIAL IV ONE (10:00)
--- NOTE | 2017-12-27 10:07 | P.PN ---
Subjective Progress Note Date: 12/27/17 Principal diagnosis: Severe mitral valve regurgitation. Coronary artery disease. Preoperative paroxysmal atrial fibrillation on outpatient Coumadin for anticoagulation. Recent hospitalization for lower GI bleed, and duodenal ulcer. History of left subclavian stenosis with stent placement 2014 with recent discovery of critical re-in-stent stenosis. Previous tobacco dependence with preoperative FEV1 60% of predicted. Hypertension. Hyperlipidemia. Depression on Lexapro. Gallbladder disease. Family history of heart disease. Preoperative nasal swab positive for MRSA. Preoperative anemia. POD #32 and Mitral valve replacement using a 25 mm Ribera bioprosthetic tissue valve. Coronary artery bypass grafting 1, a reverse greater saphenous vein graft to the obtuse marginal coronary artery. Endoscopic harvesting of the left greater saphenous vein. Modified MAZE procedure. The report wasn't back yet not back in Ligation of the left atrial appendage using a 40 mm AtriClip. Epi- aortic ultrasound. Intraoperative transesophageal echocardiogram. Intraoperative left ventricular wall tear, an unexpected but potential outcome of surgery. Acute blood loss anemia, an expected outcome given patient's preoperative anemia and intraoperative bleeding. Postoperative prolonged mechanical ventilation secondary to hemodynamic instability, an unexpected but potential outcome of surgery given the extensive nature of her postoperative course. Sternal incision dehiscence, possible outcome of surgery given the patient's obesity, nutrition status and ability. POD #17 sternal wound debridement with placement of wound VAC. POD #12 bronchoscopy and bronchoalveolar lavage of the left lower lobe and extraction of mucous plug POD #6 right rectus abdominous muscle flap closure, open sternal wound. Closure of sternal wound and muscle flap with skin graft substitute, 238 cm. Implantation of reconstructive graft for closure of abdominal wall wound, [address] Krause. Postoperative left lower lobe collapse secondary to mucous plugging, and unexpected but potential outcome of surgery. Bronchial washings positive for Rachana species. Patient is currently lying in bed with her head elevated at 45. She is in no acute distress. She is complaining of feeling bloated and had an emesis 2 early this morning. Her tracheostomy is midline and intact, sutures are in place, she remains with mechanical ventilator support. Bedside telemetry showing normal sinus rhythm heart rate 84. Dobbhoff tube in place, tube feedings currently on hold due to her complaints of feeling bloated and episodes of emesis. Objective - Vital Signs Vital signs: Vital Signs Temp 99.1 F 12/27/17 04:00 Pulse 92 03/26/18 08:00 Resp 20 12/27/17 07:00 BP 116/54 12/19/17 10:00 Pulse Ox 97 12/27/17 07:00 Intake & Output 12/26/17 12/27/17 12/27/17 18:59 06:59 18:59 Intake Total 1651 1203 65 Output Total 1615 1710 30 Balance 36 -507 35 Weight 109.1 kg Intake: IV 653 243 13 Albumin Human 25% 50 ml 50 In Empty Bag 1 bag @ 100 mls/hr IVPB ONCE ONE Rx#: [id number] Albumin Human 25% 50 ml 50 In Empty Bag 1 bag @ 100 mls/hr IVPB ONCE ONE Rx#: [id number] Dextrose 5%-0.45% NaCl 1, 70 110 10 000 ml @ 10 mls/hr IV . Q24H [facility] Rx#:[id number] Fluconazole in NaCl,Iso- 100 Osm 200 mg In Saline 1 100ml.bag @ 100 mls/hr IVPB DAILY [facility] Rx#: [id number] Potassium Chloride 20 meq 100 In Water For Injection 1 100ml.bag @ 50 mls/hr IVPB ONCE ONE Rx#: [id number] Potassium Chloride 20 meq 100 In Water For Injection 1 100ml.bag @ 50 mls/hr IVPB ONCE ONE Rx#: [id number] Pressure Bag 33 33 3 Vancomycin 1,500 mg In 250 Sodium Chloride 0.9% 250 ml @ 125 mls/hr IVPB Q24H [facility] Rx#:[id number] Oral 100 Tube Feeding 808 780 52 Other 90 180 Output: Drainage 645 680 Medial Abdomen 120 30 Right Abdomen 525 650 Urine 970 1030 30 Other: Voiding Method Indwelling Catheter Indwelling Catheter ABP, PAP, CO, CI - Last Documented Arterial Blood Pressure 119/62 Pulmonary Artery Pressure 38/33 Cardiac Output 5.8 Cardiac Index 2.9 - Constitutional General appearance: Present: cooperative, no acute distress, obese - EENT ENT: Present: hearing grossly normal - Neck Details: No JVD, no lymphadenopathy. Neck is supple. - Respiratory Details: Lung sounds are essentially diminished throughout with few scattered rhonchi. Respirations are symmetrical and nonlabored with mechanical ventilator support. Oxygen saturations are currently 97% with current mechanical ventilator settings. Current mechanical ventilator settings are as follows: Assist control 20, TV 400, FiO2 35%, PEEP 5. #8 Shiley tracheostomy tube midline and intact with mechanical ventilator support. Sutures remain in place to her trach. - Cardiovascular Details: Regular rhythm and rate. S1 and S2 present, negative for S3, gallop or murmur. Bedside telemetry showing normal sinus rhythm heart rate 84. Chest with open wound, postoperative muscle flap performed by Dr. Galindo. Dressing with scant serous drainage. Generalized anasarca with weeping. Vance wraps in place from toes to thighs to bilateral lower extremities. Knee-high sequential compression devices in place to her bilateral lower extremities. Left brachial PICC line in place and functioning. Right brachial arterial line in place and functioning. - Gastrointestinal Gastrointestinal Comment(s): Abdomen is distended, soft, and nontender. Active tympanic bowel sounds 4 abdominal quadrants. Dobbhoff tube in place to her right nare, 2 feedings on hold at this time due to some emesis this morning. No guarding or rigidity. Bowel movements 2 yesterday 12/26/2017. Passing flatus. - Genitourinary Genitourinary Comment(s): Mason catheter for accurate I&O. Draining clear calvin urine. 490 mL output in the last 8 hours. - Integumentary Integumentary Comment(s): Skin is warm and dry. No clubbing or cyanosis. Anasarca with scattered areas of blistering and weeping and serous drainage. Pressure ulcerations to her buttocks with local wound care. Ulcerations to her right wrist area with dressing in place with scant serous drainage. Dressing in place to her chest wound with scant serous drainage. HENRI drains in place to her open chest wound and to her right lower abdomen draining thin serous drainage. - Neurologic Neurologic: Present: CNII-XII intact - Musculoskeletal Musculoskeletal: Present: generalized weakness, strength equal bilaterally - Psychiatric Psychiatric Comment(s): Flat affect. Psychiatric: Present: A&O x's 3, intact judgment & insight - Allied health notes Allied health notes reviewed: nursing - Labs CBC & Chem 7: 12/27/17 05:10 12/27/17 05:10 Labs: Abnormal Lab Results - Last 24 Hours (Table) 12/26/17 12/26/17 12/26/17 Range/Units 11:27 17:31 21:31 WBC (3.8-10.6) k/uL RBC (3.80-5.40) m/uL Hgb (11.4-16.0) gm/dL Hct (34.0-46.0) % MCHC (31.0-37.0) g/dL RDW (11.5-15.5) % Neutrophils # (1.3-7.7) k/uL Lymphocytes # (1.0-4.8) k/uL Sodium (137-145) mmol/L Potassium 3.4 L (3.5-5.1) mmol/L Carbon Dioxide (22-30) mmol/L BUN (7-17) mg/dL Glucose (74-99) mg/dL POC Glucose (mg/dL) 123 H 126 H (75-99) mg/dL AST (14-36) U/L Total Protein (6.3-8.2) g/dL Albumin (3.5-5.0) g/dL 12/26/17 12/27/17 12/27/17 Range/Units 23:38 05:10 05:10 WBC 10.7 H (3.8-10.6) k/uL RBC 3.09 L (3.80-5.40) m/uL Hgb 8.0 L (11.4-16.0) gm/dL Hct 27.4 L (34.0-46.0) % MCHC 29.3 L (31.0-37.0) g/dL RDW 19.7 H (11.5-15.5) % Neutrophils # 9.3 H (1.3-7.7) k/uL Lymphocytes # 0.5 L (1.0-4.8) k/uL Sodium 148 H (137-145) mmol/L Potassium (3.5-5.1) mmol/L Carbon Dioxide 33 H (22-30) mmol/L BUN 41 H (7-17) mg/dL Glucose 113 H (74-99) mg/dL POC Glucose (mg/dL) 113 H (75-99) mg/dL AST 50 H (14-36) U/L Total Protein 6.0 L (6.3-8.2) g/dL Albumin 2.9 L (3.5-5.0) g/dL Microbiology - Last 24 Hours (Table) 12/24/17 11:30 Catheter Tip Culture - Final Catheter Tip - Imaging and Cardiology Chest x-ray: report reviewed, image reviewed Assessment and Plan (1) Acute blood loss as cause of postoperative anemia Current Visit: Yes Status: Acute Code(s): D62 - ACUTE POSTHEMORRHAGIC ANEMIA SNOMED Code(s): 65895096635229227 (2) CAD (coronary artery disease) Current Visit: Yes Status: Chronic Code(s): I25.10 - ATHSCL HEART DISEASE OF [place] CORONARY ARTERY W/O ANG PCTRS SNOMED Code(s): 90967603 (3) Family history of coronary artery disease Current Visit: Yes Status: Chronic Code(s): Z82.49 - FAMILY HX OF ISCHEM HEART DIS AND OTH DIS OF THE CIRC SYS SNOMED Code(s): 680381444 (4) Hyperlipidemia Current Visit: Yes Status: Chronic Code(s): E78.5 - HYPERLIPIDEMIA, UNSPECIFIED SNOMED Code(s): 40502682 (5) Hypertension Current Visit: Yes Status: Chronic Code(s): I10 - ESSENTIAL (PRIMARY) HYPERTENSION SNOMED Code(s): 78358156 (6) Severe mitral regurgitation Current Visit: Yes Status: Chronic Code(s): I34.0 - NONRHEUMATIC MITRAL ( VALVE) INSUFFICIENCY SNOMED Code(s): 67415253 (7) Stenosis of left subclavian artery Current Visit: Yes Status: Chronic Code(s): I77.1 - STRICTURE OF ARTERY SNOMED Code(s): 26510229185689425 (8) PAD (peripheral artery disease) Current Visit: No Status: Acute Code(s): I73.9 - PERIPHERAL VASCULAR DISEASE , UNSPECIFIED SNOMED Code(s): 713566620 (9) History of GI bleed Current Visit: No Status: Resolved Code(s): Z87.19 - PERSONAL HISTORY OF OTHER DISEASES OF THE DIGESTIVE SYSTEM SNOMED Code(s): 676176976 (10) Paroxysmal atrial fibrillation Current Visit: No Status: Resolved Code(s): I48.0 - PAROXYSMAL ATRIAL FIBRILLATION SNOMED Code(s): 042012923 (11) Elevated aspartate aminotransferase level Current Visit: Yes Status: Acute Code(s): R74.0 - NONSPEC ELEV OF LEVELS OF TRANSAMNS & LACTIC ACID DEHYDRGNSE SNOMED Code(s): 737908441 Plan: 1. Continue low-dose aspirin, statin, subcutaneous heparin, beta krunal. Will increase beta krunal therapy as tolerated. 2. Continue amiodarone to 200 mg daily per Dobbhoff daily for history of paroxysmal atrial fibrillation on home amiodarone. 3. Pulmonary and ventilator management per Dr. Ledbetter's recommendations. 4. Continue meropenem, vancomycin and Diflucan per Dr. Olivera management 5. Hold tube feedings for now per Dr. Ledbetter. Flat plate abdominal x-ray ordered for evaluation. 6. Will monitor labs, chest x-rays daily. 7. Bronchodilators per pulmonology management. 8. Spoke with mari Rubio to start wound VAC to chest wound. Place Adaptic down over Integra dressing, placed black granuafoam, placed a wound VAC drainage system if possible 100 mmHg, medium intensity and continuous setting. Change VAC dressing Wednesdays and Fridays. Also per Dr. Galindo no contraindication for PEG tube placement. 9. GI/DVT prophylaxis. 10. Discontinue chest HERNI drain. 11. Albumin 25% followed by Lasix 40 mg IV 1 today. 12. Continue Mason catheter for accurate I&O. 13. Reglan 5 mg IV every 6 hours initiated. 14. More recommendations as patient progresses in her care. Time with Patient: Greater than 30
--- NOTE | 2017-12-27 10:25 | XR ---
Abdomen HISTORY: Distention Frontal view of the abdomen submitted on 2 images and correlated to prior exam CT abdomen pelvis 08/05 There is an indwelling drain, surgical maya are again noted over the right hemiabdomen. Dobbhoff t ube is present coiled within the stomach, possibly distal tip in the proximal small bowel. There is l ikely some basilar atelectasis, difficult to exclude a small effusion. Air-filled loops of small and large bowel are present. Calcification in the left hemipelvis is present possibly vascular or retaine d contrast within a diverticulum. No evident pneumoperitoneum on this portable exam. IMPRESSION: Dobbhoff tube as described. There may be an underlying ileus, correlate for obstruction a nd consider follow-up as indicated.
--- NOTE | 2017-12-27 10:27 | XR ---
EXAMINATION TYPE: XR chest 1V portable DATE OF EXAM: 12/27/2017 COMPARISON: Prior chest x-ray 12/26/2017 HISTORY: Postop mitral valve replacement TECHNIQUE: Single frontal view of the chest is obtained. FINDINGS: Tracheostomy tube, subclavian stent, Dobbhoff tube, median sternal drain, overlying staple s, atrial appendage clipping and mitral valve replacement change are all again noted. There are overl paulette leads and tubing. Left-sided PICC line shows the distal tip near the confluence of the left and right innominate vein. Heart remains enlarged. Increased density at the left lung base obscures left hemidiaphragm, there is left costophrenic angle blunting. Central vascularity and interstitium are in creased as on prior. Some mild blunting the right costophrenic angle again noted. IMPRESSION: Findings are similar to prior exam. Possible left lower lobe atelectasis versus pneumoni a or edema with associated effusion correlate for component of volume overload, pulmonary venous hype rtension and interstitial edema. Follow-up recommended.
[2017-12-27] MEDS ORDERED: VANCOMYCIN TROUGH DUE 1 EACH MISC MISCELLANE ONE (12:00)
[2017-12-27 13:00] LABS: Glucose,Whole Blood 113 mg/dL (75-99)
[2017-12-27] MEDS: METOCLOPRAMIDE 5 MG/ML 2 ML VIAL IVP SCH ×2 (13:48→18:17)
--- NOTE | 2017-12-27 13:59 | PN ---
PROGRESS NOTE Maritza is a 67-year-old lady with status post CABG, status post mitral valve replacement. Had a sternal wound dehiscence and surgery. This morning, she remains in sinus rhythm. Hemodynamically stable. Has been having problems with oral feeds. On exam, heart rate is 87. Baseline blood pressure is 111/60, respiratory rate is 18. Chest exam reveals diminished air entry at the bases. Heart exam reveals first and second heart sounds. No gallop. Exam of extremities did not reveal any edema. Labs show a hemoglobin of 8, platelet count is 420. Potassium is 4.1, creatinine is 0.8. ASSESSMENT: Coronary artery disease, status post coronary artery bypass grafting, mitral regurgitation status post mitral valve replacement, sternal wound dehiscence, postoperative atrial fibrillation. PLAN: Patient is stable hemodynamically. She is on amiodarone, aspirin, Lipitor, Lopressor and remains in sinus rhythm. Will continue the same. Will continue her current medications. MMODL / IJN: [id number] /
--- NOTE | 2017-12-27 14:40 | P.PN ---
Progress Note - Text Progress Note Date: 12/27/17 HENRI drain to her right mid upper abdomen removed per Dr. Galindo's orders. Wound VAC placed to chest wound, measurements obtained 15 cm in length, 12 cm in width, and 1.5 cm in depth. Settings are 100 mmHg pressure continuous setting with medium intensity.
[2017-12-27] MEDS: DEXTROSE 5%-0.45% NACL 1,000 ML IV SCH (16:59)
--- NOTE | 2017-12-27 17:31 | P.PN ---
Subjective Progress Note Date: 12/27/17 Progress note being dictated for Dr. Middleton. Interval history: This is 67-year-old female status post CABG, mitral valve replacement, status post multiple blood products transfusions. Remains vent dependent on 40% FiO2/+5 of PEEP. Chest x-ray reporting fluid overload, improvement in volume status, aeration.Maintained on norepinephrine, Primacor, dopamine and insulin drip. Cardiac index 2.7. Telemetry atrial flutter/sinus tach. Tube feeding initiated via OG tube. Hemoglobin 7.3, Platelets decreased to 64 today, maintained on low-dose aspirin. Review systems unable to obtain as patient sedated and on mechanical ventilation. Active Medications Albuterol/Ipratropium (Duoneb 0.5 Mg-3 Mg/3 Ml Soln) 3 ml INHALATION RT-Q4H [facility] Last Admin: 11/29/17 15:17 Dose: 3 ml Albuterol/Ipratropium (Duoneb 0.5 Mg-3 Mg/3 Ml Soln) 3 ml INHALATION RT-Q2H PRN PRN Reason: Shortness Of Breath Or Wheezing Amiodarone HCl (Cordarone) 200 mg PO BID [facility] Aspirin (Aspirin) 81 mg PO DAILY [facility] Last Admin: 11/29/17 08:54 Dose: 81 mg Atorvastatin Calcium (Lipitor) 40 mg PO DAILY [facility] Last Admin: 11/29/17 08:54 Dose: 40 mg Benzocaine/Menthol (Cepacol Lozenge) 1 each MUCOUS MEM Q2H PRN PRN Reason: Sore Throat Bisacodyl (Dulcolax) 10 mg RECTAL DAILY PRN PRN Reason: Constipation Chlorhexidine Gluconate (Peridex) 15 ml MUCOUS MEM BID [facility] Last Admin: 11/29/17 08:48 Dose: 15 ml Furosemide (Lasix) 40 mg IV ONCE ONE Stop: 11/29/17 20:01 Propofol 1,000 mg/ IV Solution 100 mls @ 0 mls/hr IV .Q0M [facility]; Titrate PRN Reason: Protocol Last Admin: 11/29/17 17:54 Dose: 26.13 mcg/kg/min, 17.2 mls/hr Norepinephrine Bitartrate (Levophed-0.9% Nacl 16 Mg/250ml Pmx) 16 mg in 250 mls @ 0 mls/hr IV .Q0M [facility]; Titrate PRN Reason: Protocol Last Admin: 11/29/17 17:54 Dose: 2 mcg/min, 1.875 mls/hr Sodium Chloride (Saline 0.45%) 1,000 mls @ 30 mls/hr IV .Q24H [facility] Last Admin: 11/29/17 10:28 Dose: Not Given Milrinone Lactate/Dextrose 20 (mg/ IV Solution) 100 mls @ 6.58 mls/hr IV .[id number] [facility] PRN Reason: 0.2 MCG/KG/MIN Last Admin: 11/29/17 15:38 Dose: 0.2 mcg/kg/min, 6.58 mls/hr Insulin Aspart (Novolog) 0 unit SQ Q6HR [facility] PRN Reason: Protocol Last Admin: 11/29/17 12:36 Dose: Not Given Magnesium Hydroxide (Milk Of Magnesia) 2,400 mg PO BID PRN PRN Reason: Constipation Metoprolol Tartrate (Lopressor) 12.5 mg PO BID [facility] Last Admin: 11/29/17 08:55 Dose: 12.5 mg Miscellaneous Information (Magnesium Per Protocol) 1 each MISCELLANE DAILY PRN ; Protocol PRN Reason: Per Protocol Miscellaneous Information (Phosphorus Per Protocol) 1 each MISCELLANE DAILY PRN ; Protocol PRN Reason: Per Protocol Miscellaneous Information (Potassium Per Protocol) 1 each MISCELLANE DAILY PRN ; Protocol PRN Reason: Per Protocol Miscellaneous Information (Potassium Per Protocol) 1 each MISCELLANE DAILY PRN ; Protocol PRN Reason: Per Protocol Morphine Sulfate (Morphine Oral Dana 2mg/Ml) 6 mg PO Q2H PRN PRN Reason: Severe Pain Ondansetron HCl (Zofran) 4 mg IVP Q6HR PRN PRN Reason: Nausea And Vomiting Pantoprazole Sodium (Protonix) 40 mg IVP DAILY [facility] Last Admin: 11/29/17 08:55 Dose: 40 mg Senna/Docusate Sodium (Senokot-S) 2 each PO HS [facility] Last Admin: 11/28/17 20:41 Dose: 2 each Sodium Chloride (Saline Flush) 10 ml IV BID [facility] Last Admin: 11/29/17 08:56 Dose: 10 ml 11/30/2017 Chest x-ray reporting increased congestion, received additional Lasix. extubated this morning, currently maintained on BiPAP. Norepinephrine weaned off this morning. Maintained on Primacor, cardiac index 2.6. Received 1 dose of Lasix IV push. Renal function improving. Hemoglobin 7, platelets increased to 74. Atrial flutter per telemetry. Review systems unable to obtain as patient BiPAP dependent. Active Medications Generic Name Dose Route Start Last Admin Trade Name Freq PRN Reason Stop Dose Admin Albuterol/Ipratropium 3 ml 11/25/17 20:00 11/30/17 15:23 Duoneb 0.5 Mg-3 Mg/3 Ml Soln INHALATION 3 ml RT-Q4H [facility] Administration Albuterol/Ipratropium 3 ml 11/26/17 17:53 Duoneb 0.5 Mg-3 Mg/3 Ml Soln INHALATION RT-Q2H PRN Shortness Of Breath Or Wheezing Amiodarone HCl 200 mg 11/29/17 21:00 11/30/17 08:14 Cordarone PO 200 mg BID [facility] Administration Aspirin 81 mg 11/26/17 10:15 11/30/17 08:15 Aspirin PO 81 mg DAILY [facility] Administration Atorvastatin Calcium 40 mg 11/26/17 09:00 11/30/17 08:14 Lipitor PO 40 mg DAILY [facility] Administration Benzocaine/Menthol 1 each 11/25/17 19:03 Cepacol Lozenge MUCOUS MEM Q2H PRN Sore Throat Bisacodyl 10 mg 11/26/17 17:52 Dulcolax RECTAL DAILY PRN Constipation Fondaparinux 2.5 mg 11/30/17 11:30 11/30/17 13:23 Arixtra SQ 2.5 mg DAILY [facility] Administration Norepinephrine Bitartrate 16 mg in 250 mls @ 0 mls/hr 11/26/17 04:15 11:58 Levophed-0.9% Nacl 16 Mg/250ml Pmx IV 0 mcg/min .Q0M [facility] 0 mls/hr Protocol Titration Titrate Sodium Chloride 1,000 mls @ 10 mls/hr 11/26/17 10:15 11/30/17 12:51 Saline 0.45% IV Not Given .Q24H [facility] Milrinone Lactate/Dextrose 20 100 mls @ 6.58 mls/hr 11/29/17 15:00 11/30/17 08:16 mg/ IV Solution IV 0.2 mcg/kg/min .[id number] [facility] 6.58 mls/hr 0.2 MCG/KG/MIN Infusion Insulin Aspart 0 unit 11/29/17 12:00 11/30/17 12:50 Novolog SQ Not Given Q6HR [facility] Protocol Magnesium Hydroxide 2,400 mg 11/26/17 17:53 Milk Of Magnesia PO BID PRN Constipation Metoprolol Tartrate 12.5 mg 11/26/17 09:00 11/30/17 08:15 Lopressor PO 12.5 mg BID [facility] Administration Miscellaneous Information 1 each 11/25/17 19:03 Magnesium Per Protocol MISCELLANE DAILY PRN Per Protocol Protocol Miscellaneous Information 1 each 11/25/17 19:03 Phosphorus Per Protocol MISCELLANE DAILY PRN Per Protocol Protocol Miscellaneous Information 1 each 11/25/17 19:03 Potassium Per Protocol MISCELLANE DAILY PRN Per Protocol Protocol Miscellaneous Information 1 each 11/29/17 12:01 Potassium Per Protocol MISCELLANE DAILY PRN Per Protocol Protocol Morphine Sulfate 6 mg 11/29/17 13:31 Morphine Oral [place] 2mg/Ml PO Q2H PRN Severe Pain Ondansetron HCl 4 mg 11/25/17 19:03 Zofran IVP Q6HR PRN Nausea And Vomiting Pantoprazole Sodium 40 mg 11/26/17 09:00 11/30/17 08:15 Protonix IVP 40 mg DAILY [facility] Administration Senna/Docusate Sodium 2 each 11/26/17 21:00 11/29/17 20:40 Senokot-S PO 2 each HS [facility] Administration Sodium Chloride 10 ml 11/25/17 21:00 11/30/17 08:15 Saline Flush IV 10 ml BID [facility] Administration 12/01/2017 Breathing improving, weaned off of BiPAP and down to 6 L high flow. Wheezing resolved. Chest x-ray reports improvement. Staff reports patient appeared to be choking on pills last night, speech therapy consulted. Receiving one unit of packed RBCs for hemoglobin of 6.7. Mediastinal chest tubes discontinued, left pleural chest tube remains. Maintained on Primacor. Telemetry atrial flutter. Review of systems: CONSTITUTIONAL: No fever, no malaise HEENT: No recent visual problems or hearing problems. Denied any sore throat. CARDIOVASCULAR: No chest pain, no palpitations, no syncope. PULMONARY: Improving shortness of breath, no cough, no hemoptysis. GASTROINTESTINAL: No diarrhea, no nausea, no vomiting, no abdominal pain. Normoactive bowel sounds. NEUROLOGICAL: No headaches, diffuse weakness, no numbness. HEMATOLOGICAL: Denies any bleeding or petechiae. GENITOURINARY: Denies any burning micturition, frequency, or urgency. ENDOCRINE: Denies any polyuria or polydipsia. PSYCHIATRIC: No anxiety, no depression Active Medications Hydrocodone Bitart/Acetaminophen ([place] 5-325) 1 each PO Q4HR PRN PRN Reason: MILD TO MODERATE Pain Last Admin: 12/01/17 22:44 Dose: 1 each Hydrocodone Bitart/Acetaminophen ([place] 5-325) 2 each PO Q4HR PRN PRN Reason: MODERATE TO SEVERE Pain Albuterol/Ipratropium (Duoneb 0.5 Mg-3 Mg/3 Ml Soln) 3 ml INHALATION RT-Q4H [facility] Last Admin: 12/02/17 15:06 Dose: 3 ml Albuterol/Ipratropium (Duoneb 0.5 Mg-3 Mg/3 Ml Soln) 3 ml INHALATION RT-Q2H PRN PRN Reason: Shortness Of Breath Or Wheezing Last Admin: 12/01/17 18:09 Dose: 3 ml Amiodarone HCl (Cordarone) 200 mg PO BID [facility] Last Admin: 12/02/17 08:10 Dose: 200 mg Aspirin (Aspirin) 81 mg PO DAILY [facility] Last Admin: 12/02/17 08:10 Dose: 81 mg Atorvastatin Calcium (Lipitor) 40 mg PO DAILY [facility] Last Admin: 12/02/17 08:10 Dose: 40 mg Benzocaine/Menthol (Cepacol Lozenge) 1 each MUCOUS MEM Q2H PRN PRN Reason: Sore Throat Bisacodyl (Dulcolax) 10 mg RECTAL DAILY PRN PRN Reason: Constipation Budesonide (Pulmicort) 1 mg INHALATION RT-BID [facility] Last Admin: 12/02/17 07:19 Dose: 1 mg Fondaparinux (Arixtra) 2.5 mg SQ DAILY [facility] Last Admin: 12/02/17 08:10 Dose: 2.5 mg Formoterol Fumarate (Perforomist) 20 mcg INHALATION RT-BID [facility] Last Admin: 12/02/17 07:36 Dose: 20 mcg Norepinephrine Bitartrate (Levophed-0.9% Nacl 16 Mg/250ml Pmx) 16 mg in 250 mls @ 0 mls/hr IV .Q0M [facility]; Titrate PRN Reason: Protocol Last Titration: 11/30/17 11:58 Dose: 0 mcg/min, 0 mls/hr Sodium Chloride (Saline 0.45%) 1,000 mls @ 10 mls/hr IV .Q24H [facility] Last Admin: 12/01/17 14:04 Dose: 10 mls/hr Milrinone Lactate/Dextrose 20 (mg/ IV Solution) 100 mls @ 6.58 mls/hr IV .[id number] [facility] PRN Reason: 0.2 MCG/KG/MIN Last Admin: 12/02/17 08:57 Dose: 0.2 mcg/kg/min, 6.58 mls/hr Insulin Aspart (Novolog) 0 unit SQ Q6HR [facility] PRN Reason: Protocol Last Admin: 12/02/17 12:53 Dose: Not Given Magnesium Hydroxide (Milk Of Magnesia) 2,400 mg PO BID PRN PRN Reason: Constipation Methylprednisolone Sodium Succinate (Solu-Medrol) 30 mg IV Q8HR [facility] Last Admin: 12/02/17 08:10 Dose: 30 mg Metoprolol Tartrate (Lopressor) 25 mg PO BID [facility] Last Admin: 12/02/17 08:59 Dose: 25 mg Miscellaneous Information (Magnesium Per Protocol) 1 each MISCELLANE DAILY PRN ; Protocol PRN Reason: Per Protocol Miscellaneous Information (Phosphorus Per Protocol) 1 each MISCELLANE DAILY PRN ; Protocol PRN Reason: Per Protocol Miscellaneous Information (Potassium Per Protocol) 1 each MISCELLANE DAILY PRN ; Protocol PRN Reason: Per Protocol Miscellaneous Information (Potassium Per Protocol) 1 each MISCELLANE DAILY PRN ; Protocol PRN Reason: Per Protocol Ondansetron HCl (Zofran) 4 mg IVP Q6HR PRN PRN Reason: Nausea And Vomiting Pantoprazole Sodium (Protonix) 40 mg IVP DAILY [facility] Last Admin: 12/02/17 08:10 Dose: 40 mg Senna/Docusate Sodium (Senokot-S) 2 each PO HS [facility] Last Admin: 12/01/17 21:55 Dose: 2 each Sodium Chloride (Saline Flush) 10 ml IV BID [facility] Last Admin: 12/02/17 12:51 Dose: 10 ml 12/02/17 Much more alert today. Oxygen weaned further down to 5 L nasal cannula, maintaining O2 sats in the high 90s. Pleural chest tube discontinued. Chest x- ray reporting probable right lower lobe atelectasis/effusion. Underwent modified barium swallow, with recommendations of regular diet, thin liquids, chin tuck, no straw, small bites/sepsis/sips; no impairment with exception of mild transient penetration with thin liquids which patient independently cleared. Yesterday receive 1 unit of packed RBCs with current hemoglobin 8. Weaning of Primacor in progress. 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 Review of systems: CONSTITUTIONAL: No fever, no malaise, no fatigue. HEENT: No recent visual problems or hearing problems. Denied any sore throat. CARDIOVASCULAR: No chest pain, no palpitations, no syncope. PULMONARY: Minimal shortness of breath, no cough, no hemoptysis. GASTROINTESTINAL: No diarrhea, no nausea, no vomiting, no abdominal pain. Normoactive bowel sounds. NEUROLOGICAL: No headaches, no weakness, no numbness. HEMATOLOGICAL: Denies any bleeding or petechiae. GENITOURINARY: Denies any burning micturition, frequency, or urgency. MUSCULOSKELETAL/RHEUMATOLOGICAL: Denies any joint pain, swelling, or any muscle pain. ENDOCRINE: Denies any polyuria or polydipsia. PSYCHIATRIC: No anxiety, no depression The rest of the 14 point review of systems is negative Active Medications Generic Name Dose Route Start Last Admin Trade Name Freq PRN Reason Stop Dose Admin Hydrocodone Bitart/Acetaminophen 1 each 12/01/17 12:20 12/01/17 22:44 [place] 5-325 PO 1 each Q4HR PRN Administration MILD TO MODERATE Pain Hydrocodone Bitart/Acetaminophen 2 each 12/01/17 12:20 [place] 5-325 PO Q4HR PRN MODERATE TO SEVERE Pain Albuterol/Ipratropium 3 ml 11/25/17 20:00 12/02/17 15:06 Duoneb 0.5 Mg-3 Mg/3 Ml Soln INHALATION 3 ml RT-Q4H [facility] Administration Albuterol/Ipratropium 3 ml 11/26/17 17:53 12/01/17 18:09 Duoneb 0.5 Mg-3 Mg/3 Ml Soln INHALATION 3 ml RT-Q2H PRN Administration Shortness Of Breath Or Wheezing Amiodarone HCl 200 mg 11/29/17 21:00 12/02/17 08:10 Cordarone PO 200 mg BID [facility] Administration Aspirin 81 mg 11/26/17 10:15 12/02/17 08:10 Aspirin PO 81 mg DAILY [facility] Administration Atorvastatin Calcium 40 mg 11/26/17 09:00 12/02/17 08:10 Lipitor PO 40 mg DAILY [facility] Administration Benzocaine/Menthol 1 each 11/25/17 19:03 Cepacol Lozenge MUCOUS MEM Q2H PRN Sore Throat Bisacodyl 10 mg 11/26/17 17:52 Dulcolax RECTAL DAILY PRN Constipation Budesonide 1 mg 12/01/17 20:00 12/02/17 07:19 Pulmicort INHALATION 1 mg RT-BID [facility] Administration Fondaparinux 2.5 mg 11/30/17 11:30 12/02/17 08:10 Arixtra SQ 2.5 mg DAILY [facility] Administration Formoterol Fumarate 20 mcg 12/01/17 20:00 12/02/17 07:36 Perforomist INHALATION 20 mcg RT-BID [facility] Administration Norepinephrine Bitartrate 16 mg in 250 mls @ 0 mls/hr 11/26/17 04:15 11:58 Levophed-0.9% Nacl 16 Mg/250ml Pmx IV 0 mcg/min .Q0M [facility] 0 mls/hr Protocol Titration Titrate Sodium Chloride 1,000 mls @ 10 mls/hr 11/26/17 10:15 12/02/17 15:41 Saline 0.45% IV Not Given .Q24H [facility] Milrinone Lactate/Dextrose 20 100 mls @ 6.58 mls/hr 11/29/17 15:00 12/02/17 08:57 mg/ IV Solution IV 0.2 mcg/kg/min .[id number] [facility] 6.58 mls/hr 0.2 MCG/KG/MIN Administration Insulin Aspart 0 unit 11/29/17 12:00 12/02/17 12:53 Novolog SQ Not Given Q6HR [facility] Protocol Magnesium Hydroxide 2,400 mg 11/26/17 17:53 Milk Of Magnesia PO BID PRN Constipation Methylprednisolone Sodium Succinate 30 mg 12/01/17 16:00 12/02/17 08:10 Solu-Medrol IV 30 mg Q8HR [facility] Administration Metoprolol Tartrate 25 mg 12/02/17 09:00 12/02/17 08:59 Lopressor PO 25 mg BID [facility] Administration Miscellaneous Information 1 each 11/25/17 19:03 Magnesium Per Protocol MISCELLANE DAILY PRN Per Protocol Protocol Miscellaneous Information 1 each 11/25/17 19:03 Phosphorus Per Protocol MISCELLANE DAILY PRN Per Protocol Protocol Miscellaneous Information 1 each 11/25/17 19:03 Potassium Per Protocol MISCELLANE DAILY PRN Per Protocol Protocol Miscellaneous Information 1 each 11/29/17 12:01 Potassium Per Protocol MISCELLANE DAILY PRN Per Protocol Protocol Ondansetron HCl 4 mg 11/25/17 19:03 Zofran IVP Q6HR PRN Nausea And Vomiting Pantoprazole Sodium 40 mg 11/26/17 09:00 12/02/17 08:10 Protonix IVP 40 mg DAILY [facility] Administration Senna/Docusate Sodium 2 each 11/26/17 21:00 12/01/17 21:55 Senokot-S PO 2 each HS [facility] Administration Sodium Chloride 10 ml 11/25/17 21:00 12/02/17 12:51 Saline Flush IV 10 ml BID [facility] Administration 12/03/17 maintained on nebulized bronchodilators, steroids,patient tachypneic, requiring BiPap throughout today off and on. Chest x-ray suggestive of fluid overload. Received additional Lasix. Maintained on oral amiodarone, remains in a-flutter. Overdrive atrial pacing attempted unsuccessfully. Digoxin 2 ordered. Pacer wires discontinued today. Stool at bedside with PT OT, remains extremely weak. Primacor weaned off yesterday. 2017 currently in atrial fibrillation with heart rates up into the 150s, scheduled for cardioversion tomorrow. INR 2.2. Patient currently wearing BiPAP ,has required on and off all day. Chest ultrasound reporting bilateral pleural effusions, larger on the right. Thoracentesis on hold, awaiting cardioversion.Chest x-ray reporting prominent interstitium and central vascularity, increased bibasilar density. Attempting diuresing with Lasix and Zaroxolyn. Review systems unable to obtain as patient currently on BiPAP. Active Medications Hydrocodone Bitart/Acetaminophen ([place] 5-325) 1 each PO Q4HR PRN PRN Reason: MILD TO MODERATE Pain Last Admin: 12/07/17 10:48 Dose: 1 each Hydrocodone Bitart/Acetaminophen ([place] 5-325) 2 each PO Q4HR PRN PRN Reason: MODERATE TO SEVERE Pain Last Admin: 12/07/17 16:39 Dose: 2 each Albuterol/Ipratropium (Duoneb 0.5 Mg-3 Mg/3 Ml Soln) 3 ml INHALATION RT-Q2H PRN PRN Reason: Shortness Of Breath Or Wheezing Last Admin: 12/01/17 18:09 Dose: 3 ml Albuterol/Ipratropium (Duoneb 0.5 Mg-3 Mg/3 Ml Soln) 3 ml INHALATION RT-QID [facility] Last Admin: 12/07/17 16:43 Dose: 3 ml Amiodarone HCl (Cordarone) 200 mg PO BID [facility] Aspirin (Aspirin) 81 mg PO DAILY [facility] Last Admin: 12/07/17 08:53 Dose: 81 mg Atorvastatin Calcium (Lipitor) 40 mg PO DAILY [facility] Last Admin: 12/07/17 08:53 Dose: 40 mg Benzocaine/Menthol (Cepacol Lozenge) 1 each MUCOUS MEM Q2H PRN PRN Reason: Sore Throat Bisacodyl (Dulcolax) 10 mg RECTAL DAILY PRN PRN Reason: Constipation Budesonide (Pulmicort) 1 mg INHALATION RT-BID [facility] Last Admin: 12/07/17 08:36 Dose: 1 mg Escitalopram Oxalate (Lexapro) 10 mg PO HS [facility] Furosemide (Lasix) 40 mg IV Q12HR [facility] Last Admin: 12/07/17 08:33 Dose: 40 mg Piperacillin/Tazobactam/ (Dextrose 3.375 gm/ IV Solution) 50 mls @ 12.5 mls/hr IVPB Q8HR [facility] Last Admin: 12/07/17 16:39 Dose: 12.5 mls/hr Sodium Chloride (Saline 0.9%) 1,000 mls @ 20 mls/hr IV .Q24H [facility] Last Admin: 12/07/17 13:00 Dose: 20 mls/hr Lactated Ringer's (Lactated Ringers) 1,000 mls @ 20 mls/hr IV .Q24H [facility] Last Admin: 12/06/17 20:45 Dose: 20 mls/hr Insulin Aspart (Novolog) 0 unit SQ ACHS [facility] PRN Reason: Protocol Last Admin: 12/07/17 13:01 Dose: 2 unit Magnesium Hydroxide (Milk Of Magnesia) 2,400 mg PO BID PRN PRN Reason: Constipation Methylprednisolone Sodium Succinate (Solu-Medrol) 30 mg IV Q8HR [facility] Last Admin: 12/07/17 16:39 Dose: 30 mg Metolazone (Zaroxolyn) 5 mg PO DAILY [facility] Last Admin: 12/07/17 08:53 Dose: 5 mg Metoprolol Tartrate (Lopressor) 50 mg PO BID [facility] Last Admin: 12/07/17 08:53 Dose: 50 mg Miscellaneous Information (Magnesium Per Protocol) 1 each MISCELLANE DAILY PRN ; Protocol PRN Reason: Per Protocol Miscellaneous Information (Phosphorus Per Protocol) 1 each MISCELLANE DAILY PRN ; Protocol PRN Reason: Per Protocol Miscellaneous Information (Potassium Per Protocol) 1 each MISCELLANE DAILY PRN ; Protocol PRN Reason: Per Protocol Ondansetron HCl (Zofran) 4 mg IVP Q6HR PRN PRN Reason: Nausea And Vomiting Pantoprazole Sodium (Protonix) 40 mg PO AC-[id number] [facility] Last Admin: 12/07/17 08:53 Dose: 40 mg Senna/Docusate Sodium (Senokot-S) 2 each PO HS [facility] Last Admin: 12/06/17 20:29 Dose: 2 each Sodium Chloride (Saline Flush) 10 ml IV BID [facility] Last Admin: 12/07/17 10:48 Dose: 10 ml 12/07/2017 Underwent successful cardioversion this morning,360J X1, remains in sinus rhythm. Currently wearing BiPAP. Nonproductive cough. Diuresing well on Lasix and Zaroxolyn with 24-hour I&O reflecting a negative fluid balance. Chest x-ray reporting stable bilateral areas of infiltrate and pleural effusions , possible CHF, possible pneumonia. INR 3.8, afebrile, WBC 17. Maintained on Zosyn. Sternal wound drainage, cultures sent. 12/08/2017 Cardioverted yesterday, remains in sinus rhythm .continues requiring BiPAP for majority of morning. Echo reporting-limited study for assessment of pericardial effusion, small generalized pericardial effusion, low normal LV function, EF 50-55%. Chest CT reporting sternal dehiscence, moderate to large pericardial effusion, possible mass effect onto the left ventricle, no significant right atrial dilatation to clearly indicate tamponade, moderate left pleural effusion with adjacent complete left lower lobar and inferior lingular collapse, small right pleural effusion, right basilar subsegmental atelectasis. Chest x-ray noted. Blood sugars controlled. INR 4.8, received vitamin K this morning. Diuresing well on Lasix IV push, Zaroxolyn. 24-hour I& O reflecting a negative fluid balance, decreased weight. Midsternal incision open, draining large amount of serosanguineous drainage. Currently maintained on Zosyn. Wound cultures pending. Afebrile. Review systems unable to obtain as patient currently on BiPAP. Active Medications Generic Name Dose Route Start Last Admin Trade Name Freq PRN Reason Stop Dose Admin Hydrocodone Bitart/Acetaminophen 1 each 12/01/17 12:20 12/08/17 06:26 [place] 5-325 PO 1 each Q4HR PRN Administration MILD TO MODERATE Pain Hydrocodone Bitart/Acetaminophen 2 each 12/01/17 12:20 12/08/17 18:41 [place] 5-325 PO 2 each Q4HR PRN Administration MODERATE TO SEVERE Pain Acetazolamide Sodium 250 mg 12/08/17 09:15 12/08/17 11:16 Diamox IV 12/08/17 21:01 250 mg Q12HR [facility] Administration Albuterol/Ipratropium 3 ml 11/26/17 17:53 12/08/17 05:16 Duoneb 0.5 Mg-3 Mg/3 Ml Soln INHALATION 3 ml RT-Q2H PRN Administration Shortness Of Breath Or Wheezing Albuterol/Ipratropium 3 ml 12/03/17 08:00 12/08/17 15:38 Duoneb 0.5 Mg-3 Mg/3 Ml Soln INHALATION 3 ml RT-QID [facility] Administration Amiodarone HCl 200 mg 12/08/17 09:00 12/08/17 08:24 Cordarone PO 200 mg BID [facility] Administration Aspirin 81 mg 11/26/17 10:15 12/08/17 08:24 Aspirin PO 81 mg DAILY [facility] Administration Atorvastatin Calcium 40 mg 11/26/17 09:00 12/08/17 08:25 Lipitor PO 40 mg DAILY [facility] Administration Benzocaine/Menthol 1 each 11/25/17 19:03 Cepacol Lozenge MUCOUS MEM Q2H PRN Sore Throat Bisacodyl 10 mg 11/26/17 17:52 Dulcolax RECTAL DAILY PRN Constipation Budesonide 1 mg 12/01/17 20:00 12/08/17 09:26 Pulmicort INHALATION 1 mg RT-BID [facility] Administration Escitalopram Oxalate 10 mg 12/07/17 21:00 12/07/17 20:10 Lexapro PO 10 mg HS [facility] Administration Piperacillin/Tazobactam/ 50 mls @ 12.5 mls/hr 12/04/17 16:00 12/08/17 16:11 Dextrose 3.375 gm/ IV Solution IVPB 12.5 mls/hr Q8HR [facility] Administration Sodium Chloride 1,000 mls @ 20 mls/hr 12/06/17 10:45 12/08/17 13:47 Saline 0.9% IV Not Given .Q24H [facility] Insulin Aspart 0 unit 12/02/17 21:00 12/08/17 17:46 Novolog SQ 1 unit ACHS [facility] Administration Protocol Magnesium Hydroxide 2,400 mg 11/26/17 17:53 Milk Of Magnesia PO BID PRN Constipation Metoprolol Tartrate 50 mg 12/06/17 21:00 12/08/17 08:24 Lopressor PO 50 mg BID [facility] Administration Miscellaneous Information 1 each 11/25/17 19:03 Magnesium Per Protocol MISCELLANE DAILY PRN Per Protocol Protocol Miscellaneous Information 1 each 11/25/17 19:03 Phosphorus Per Protocol MISCELLANE DAILY PRN Per Protocol Protocol Miscellaneous Information 1 each 11/25/17 19:03 Potassium Per Protocol MISCELLANE DAILY PRN Per Protocol Protocol Ondansetron HCl 4 mg 11/25/17 19:03 Zofran IVP Q6HR PRN Nausea And Vomiting Pantoprazole Sodium 40 mg 12/05/17 07:30 12/08/17 08:25 Protonix PO 40 mg [id number] [facility] Administration Senna/Docusate Sodium 2 each 11/26/17 21:00 12/07/17 20:16 Senokot-S PO 2 each HS [facility] Administration Sodium Chloride 10 ml 11/25/17 21:00 12/08/17 11:16 Saline Flush IV 10 ml BID [facility] Administration 12/09/17 Remains in sinus rhythm. mostly BiPAP dependent. Incentive spirometer up to 700 -750. Chest x-ray reporting improving moderate pleural effusion, cardiomegaly. Sternal wound culture positive for gram-negative bacilli. Maintained on Zosyn. Diet intake fair. Blood sugars controlled. Review systems unable to be performed as patient on BiPAP Active Medications Hydrocodone Bitart/Acetaminophen ([place] 5-325) 1 each PO Q4HR PRN PRN Reason: MILD TO MODERATE Pain Last Admin: 12/09/17 10:03 Dose: 1 each Hydrocodone Bitart/Acetaminophen ([place] 5-325) 2 each PO Q4HR PRN PRN Reason: MODERATE TO SEVERE Pain Last Admin: 12/09/17 14:51 Dose: 2 each Albuterol/Ipratropium (Duoneb 0.5 Mg-3 Mg/3 Ml Soln) 3 ml INHALATION RT-Q2H PRN PRN Reason: Shortness Of Breath Or Wheezing Last Admin: 12/08/17 05:16 Dose: 3 ml Albuterol/Ipratropium (Duoneb 0.5 Mg-3 Mg/3 Ml Soln) 3 ml INHALATION RT-QID [facility] Last Admin: 12/09/17 15:42 Dose: 3 ml Amiodarone HCl (Cordarone) 200 mg PO BID [facility] Last Admin: 12/09/17 08:12 Dose: 200 mg Aspirin (Aspirin) 81 mg PO DAILY [facility] Last Admin: 12/09/17 08:13 Dose: 81 mg Atorvastatin Calcium (Lipitor) 40 mg PO DAILY [facility] Last Admin: 12/09/17 08:13 Dose: 40 mg Benzocaine/Menthol (Cepacol Lozenge) 1 each MUCOUS MEM Q2H PRN PRN Reason: Sore Throat Bisacodyl (Dulcolax) 10 mg RECTAL DAILY PRN PRN Reason: Constipation Budesonide (Pulmicort) 1 mg INHALATION RT-BID [facility] Last Admin: 12/09/17 07:45 Dose: 1 mg Escitalopram Oxalate (Lexapro) 10 mg PO [facility] Last Admin: 12/08/17 20:33 Dose: 10 mg Piperacillin/Tazobactam/ (Dextrose 3.375 gm/ IV Solution) 50 mls @ 12.5 mls/hr IVPB Q8HR [facility] Last Admin: 12/09/17 08:16 Dose: 12.5 mls/hr Sodium Chloride (Saline 0.9%) 1,000 mls @ 20 mls/hr IV .Q24H [facility] Last Admin: 12/09/17 08:17 Dose: 20 mls/hr Insulin Aspart (Novolog) 0 unit SQ ACHS [facility] PRN Reason: Protocol Last Admin: 12/09/17 12:23 Dose: Not Given Magnesium Hydroxide (Milk Of Magnesia) 2,400 mg PO BID PRN PRN Reason: Constipation Metoprolol Tartrate (Lopressor) 50 mg PO BID [facility] Last Admin: 12/09/17 08:13 Dose: 50 mg Miscellaneous Information (Magnesium Per Protocol) 1 each MISCELLANE DAILY PRN ; Protocol PRN Reason: Per Protocol Miscellaneous Information (Phosphorus Per Protocol) 1 each MISCELLANE DAILY PRN ; Protocol PRN Reason: Per Protocol Miscellaneous Information (Potassium Per Protocol) 1 each MISCELLANE DAILY PRN ; Protocol PRN Reason: Per Protocol Ondansetron HCl (Zofran) 4 mg IVP Q6HR PRN PRN Reason: Nausea And Vomiting Pantoprazole Sodium (Protonix) 40 mg PO AC-BRKFST [facility] Last Admin: 12/09/17 08:11 Dose: 40 mg Senna/Docusate Sodium (Senokot-S) 2 each PO HS [facility] Last Admin: 12/08/17 20:37 Dose: 2 each Sodium Chloride (Saline Flush) 10 ml IV BID [facility] Last Admin: 12/09/17 08:13 Dose: 10 ml 12/13/17 maintained on Merrem and vancomycin. BiPAP dependent. Worsening chest x-ray, chest CT reporting near complete collapse of left lung, enlarging moderate to large pericardial effusion. Echo pending. Multiple episodes of diarrhea. Atrial flutter with RVR, Review systems unable to be performed as patient on BiPAP Active Medications Generic Name Dose Route Start Last Admin Trade Name Freq PRN Reason Stop Dose Admin Hydrocodone Bitart/Acetaminophen 1 each 12/01/17 12:20 12/13/17 08:08 [place] 5-325 PO 1 each Q4HR PRN Administration MILD TO MODERATE Pain Hydrocodone Bitart/Acetaminophen 2 each 12/01/17 12:20 12/13/17 15:08 [place] 5-325 PO 2 each Q4HR PRN Administration MODERATE TO SEVERE Pain Albuterol/Ipratropium 3 ml 11/26/17 17:53 12/08/17 05:16 Duoneb 0.5 Mg-3 Mg/3 Ml Soln INHALATION 3 ml RT-Q2H PRN Administration Shortness Of Breath Or Wheezing Albuterol/Ipratropium 3 ml 12/03/17 08:00 12/13/17 16:02 Duoneb 0.5 Mg-3 Mg/3 Ml Soln INHALATION Not Given RT-QID [facility] Amiodarone HCl 200 mg 12/11/17 20:00 12/13/17 09:12 Cordarone PO 200 mg BID@0800,2000 [facility] Administration Aspirin 81 mg 11/26/17 10:15 12/13/17 09:13 Aspirin PO 81 mg DAILY [facility] Administration Atorvastatin Calcium 40 mg 11/26/17 09:00 12/13/17 09:13 Lipitor PO 40 mg DAILY [facility] Administration Benzocaine/Menthol 1 each 11/25/17 19:03 Cepacol Lozenge MUCOUS MEM Q2H PRN Sore Throat Bisacodyl 10 mg 11/26/17 17:52 12/12/17 17:45 Dulcolax RECTAL 10 mg DAILY PRN Administration Constipation Budesonide 1 mg 12/01/17 20:00 12/13/17 07:46 Pulmicort INHALATION 1 mg RT-BID [facility] Administration Escitalopram Oxalate 10 mg 12/07/17 21:00 12/12/17 20:16 Lexapro PO 10 mg HS [facility] Administration Heparin Sodium (Porcine) 5,000 unit 12/10/17 16:00 12/13/17 09:14 Heparin SQ 5,000 unit Q8HR [facility] Administration Sodium Chloride 1,000 mls @ 20 mls/hr 12/06/17 10:45 12/13/17 09:49 Saline 0.9% IV 20 mls/hr .Q24H [facility] Administration Meropenem 1 gm/ Sodium 100 mls @ 100 mls/hr 12/09/17 22:00 12/13/17 09:46 Chloride IVPB 100 mls/hr Q8HR [facility] Administration Vancomycin HCl 1,750 mg/ 250 mls @ 125 mls/hr 12/13/17 14:00 12/13/17 14:15 Sodium Chloride IVPB 125 mls/hr Q12HR@0000,1200 [facility] Administration Insulin Aspart 0 unit 12/02/17 21:00 12/13/17 12:34 Novolog SQ Not Given ACHS [facility] Protocol Lactobacillus Acidoph/Bulgaricus 1 each 12/13/17 16:00 Lactinex PO TID [facility] Magnesium Hydroxide 2,400 mg 11/26/17 17:53 Milk Of Magnesia PO BID PRN Constipation Metoprolol Tartrate 50 mg 12/11/17 22:00 12/13/17 09:13 Lopressor PO 50 mg BID@1000,2200 [facility] Administration Miscellaneous Information 1 each 11/25/17 19:03 Magnesium Per Protocol MISCELLANE DAILY PRN Per Protocol Protocol Miscellaneous Information 1 each 11/25/17 19:03 Phosphorus Per Protocol MISCELLANE DAILY PRN Per Protocol Protocol Miscellaneous Information 1 each 11/25/17 19:03 Potassium Per Protocol MISCELLANE DAILY PRN Per Protocol Protocol Ondansetron HCl 4 mg 11/25/17 19:03 Zofran IVP Q6HR PRN Nausea And Vomiting Pantoprazole Sodium 40 mg 12/05/17 07:30 12/13/17 09:13 Protonix PO 40 mg AC-BRKFST [facility] Administration Senna/Docusate Sodium 2 each 11/26/17 21:00 12/12/17 20:16 Senokot-S PO 2 each HS [facility] Administration Sodium Chloride 10 ml 11/25/17 21:00 12/13/17 09:49 Saline Flush IV 10 ml BID [facility] Administration 12/14/17 maintained on Merrem and vancomycin per infectious disease .remains BiPAP dependent. Chest x-ray reporting persistent significant left lung collapse with minimal improvement. Scheduled for bronchoscopy this afternoon. INR 2.1, receiving FFP. No diarrhea today. Telemetry atrial fibrillation/ flutter, heart rate 110s to 120s. 12/15/2017 developed worsened respiratory distress despite BiPAP, diuretics, antiarrhythmics, intubated last night. Received 2 more units of FFP this morning, underwent bronchoscopy this morning; mucous plug discovered in the left lower lobe. Pleural Cultures pending. Maintained on FiO2 45%/+5 of PEEP. Continues on IV antibiotics. Currently on 2-1/2 mics of Levophed and diprovan drips. Atrial tachycardia, heart rate in the 130s. Amiodarone discontinued as per cardiology. Developed increased bleeding from wound VAC with turning during bath-Anticoagulation placed on hold. Afebrile. 12/16/17 remains vent dependent, FiO2 40%/+5 of PEEP. Sedated on Diprovan. Requiring low-dose of Levophed. Marginal urine output, received albumin last night. Tachycardia resolved, sinus rhythm per telemetry. Wound VAC dressing changed today, serosanguineous drainage. Bronchoscopy yesterday, cultures pending. Blood sugars controlled. 12/17/2017 today weaning trials of pressure support in increments of 3 hours , resting at night, FiO2 40%/+5 of PEEP. Chest x-ray reporting improvement. Currently on Levophed. Tolerating tube feeds at goal with minimal to no residual. Maintained on IV antibiotics as per infectious disease. Telemetry sinus rhythm. 12/20/17 remains vent dependent FiO2 40%/PEEP of 5. Yesterday vent weaning during the day hours, tolerated well. Wound VAC changed yesterday. Scheduled for sternal flap repair tomorrow. Maintained on IV antibiotics. T-max 99.4. Last night returned into rapid atrial flutter, Currently sinus rhythm. 12/21/2017 remains vent dependent. Telemetry sinus rhythm. Tube feeds on hold. Scheduled for sternal flap repair today. 12/22/2017 underwent flap repair/grafting yesterday with plastic surgeon. Pain controlled. Extubated this morning, maintained on BiPAP. Telemetry sinus rhythm. Albumin remains at 2.2, receiving albumin. 12/23/17 .Patient respiratory arrested while Dobbhoff attempting to be placed, returned into atrial fibrillation with RVR. Reintubated, converted back into sinus rhythm. Midsternal dressing being changed at bedside by cardiothoracic surgery. Trach and PEG being discussed as per pulmonary. 12/24/17 scheduled for tracheostomy this morning. Chest x-ray reporting progressive CHF change with bilateral effusions possible underlying pneumonia, ET tube 1 cm above osvaldo. Telemetry sinus rhythm. Levophed currently on hold. 12/27/2017 Dobbhoff recently placed, developed nausea vomiting throughout the night. Abdomen distended, tympanic.Tube feeds placed on hold, flat plate of abdomen pending. PEG tube being discussed. Passing loose stools. Denies abdominal pain .Telemetry sinus rhythm. Maintained on FiO2 35%/+ of PEEP. Tolerated CPAP for 3 hours yesterday. Yesterday and today patient received Lasix IV push, diuresed well with 24-hour I&O reflecting a negative fluid balance. Chest x-ray reporting similar findings. T-max 99.2. Objective - Vital Signs Vital signs: Vital Signs Temp 99.2 F 12/27/17 08:00 Pulse 87 12/27/17 11:18 Resp 31 H 12/27/17 10:00 BP 116/54 12/19/17 10:00 Pulse Ox 97 12/27/17 10:00 Intake & Output 12/26/17 12/27/17 12/27/17 18:59 06:59 18:59 Intake Total 1651 1203 181 Output Total 1615 1710 250 Balance 36 -507 -69 Weight 109.1 kg 109.1 kg Intake: IV 653 243 129 Albumin Human 25% 50 ml 50 In Empty Bag 1 bag @ 100 mls/hr IVPB ONCE ONE Rx#: [id number] Albumin Human 25% 50 ml 50 In Empty Bag 1 bag @ 100 mls/hr IVPB ONCE ONE Rx#: [id number] Dextrose 5%-0.45% NaCl 1, 70 110 20 000 ml @ 10 mls/hr IV . Q24H [facility] Rx#:[id number] Fluconazole in NaCl,Iso- 100 100 Osm 200 mg In Saline 1 100ml.bag @ 100 mls/hr IVPB DAILY [facility] Rx#: [id number] Potassium Chloride 20 meq 100 In Water For Injection 1 100ml.bag @ 50 mls/hr IVPB ONCE ONE Rx#: [id number] Potassium Chloride 20 meq 100 In Water For Injection 1 100ml.bag @ 50 mls/hr IVPB ONCE ONE Rx#: [id number] Pressure Bag 33 33 9 Vancomycin 1,500 mg In 250 Sodium Chloride 0.9% 250 ml @ 125 mls/hr IVPB Q24H [facility] Rx#:[id number] Oral 100 Tube Feeding 808 780 52 Other 90 180 Output: Drainage 645 680 175 Medial Abdomen 120 30 Right Abdomen 525 650 175 Urine 970 1030 75 Other: Voiding Method Indwelling Catheter Indwelling Catheter ABP, PAP, CO, CI - Last Documented Arterial Blood Pressure 113/55 Pulmonary Artery Pressure 38/33 Cardiac Output 5.8 Cardiac Index 2.9 - Exam PHYSICAL EXAM: VITAL SIGNS: As above GENERAL: Sitting up in bed, on mechanical ventilation HEENT: Conjunctivae normal. eyes normal. NECK: No JVD. Tracheostomy tube present CARDIOVASCULAR: S1, S2 muffled , no gallops, no murmurs RESPIRATION: Breath sounds diminished in the bases,coarse. Sternal wound dressing present. ABDOMEN: Distended, tympanic, right-sided abdominal dressing clean dry and intact with HENRI drains with serous drainage, hypoactive bowel sounds Extremities: Positive mild edema PSYCHIATRY:/NERVOUS SYSTEM: Unable to assess as patient on mechanical ventilation, attempting to nod head to questions Skin: Midsternal dressing clean dry and intact, right medial buttock & right buttock optifoam dressing intact Microbiology 12/10/17 10:40 Chest Fungal Culture - Preliminary 12/10/17 10:45 Chest Fungal Culture - Preliminary 12/10/17 10:50 Chest Fungal Culture - Preliminary 12/24/17 11:30 Catheter Tip Catheter Tip Culture - Final 12/10/17 10:50 Chest Acid Fast Bacilli Smear - Final 12/10/17 10:50 Chest Acid Fast Bacilli Culture - Preliminary 12/10/17 10:45 Chest Acid Fast Bacilli Smear - Final 12/10/17 10:45 Chest Acid Fast Bacilli Culture - Preliminary 12/15/17 10:40 Bronchial Washings - Left Fungal Culture - Preliminary Rachana albicans 12/15/17 10:40 Bronchial Washings - Left Gram Stain - Final 12/15/17 10:40 Bronchial Washings - Left Bronchial Washings Culture - Final Rachana albicans 12/14/17 21:30 Sputum Gram Stain - Final 12/14/17 21:30 Sputum Sputum Culture - Final Rachana albicans 12/15/17 10:40 Bronchial Washings - Left Acid Fast Bacilli Smear - Final 12/15/17 10:40 Bronchial Washings - Left Acid Fast Bacilli Culture - Preliminary 12/10/17 10:50 Chest Anaerobic Culture - Final 12/10/17 10:40 Chest Anaerobic Culture - Final 12/10/17 10:45 Chest Anaerobic Culture - Final 12/13/17 05:27 Urine,Catheterized Urine Culture - Final 12/10/17 10:40 Chest Gram Stain - Final 12/10/17 10:40 Chest Wound Culture - Final Serratia marcescens 12/10/17 10:45 Chest Gram Stain - Final 12/10/17 10:45 Chest Tissue Culture - Final Serratia marcescens 12/10/17 10:50 Chest Gram Stain - Final 12/10/17 10:50 Chest Tissue Culture - Final Serratia marcescens 12/07/17 15:40 Chest Gram Stain - Final 12/07/17 15:40 Chest Wound Culture - Final Serratia marcescens 12/04/17 10:00 Urine,Voided Urine Culture - Final Escherichia coli Serratia marcescens 11/26/17 04:00 Sputum Gram Stain - Final 11/26/17 04:00 Sputum Sputum Culture - Final - Labs CBC & Chem 7: 12/27/17 05:10 12/27/17 05:10 Labs: Abnormal Lab Results - Last 24 Hours (Table) 12/26/17 12/26/17 12/26/17 Range/Units 11:27 17:31 21:31 WBC (3.8-10.6) k/uL RBC (3.80-5.40) m/uL Hgb (11.4-16.0) gm/dL Hct (34.0-46.0) % MCHC (31.0-37.0) g/dL RDW (11.5-15.5) % Neutrophils # (1.3-7.7) k/uL Lymphocytes # (1.0-4.8) k/uL Sodium (137-145) mmol/L Potassium 3.4 L (3.5-5.1) mmol/L Carbon Dioxide (22-30) mmol/L BUN (7-17) mg/dL Glucose (74-99) mg/dL POC Glucose (mg/dL) 123 H 126 H (75-99) mg/dL AST (14-36) U/L Total Protein (6.3-8.2) g/dL Albumin (3.5-5.0) g/dL 12/26/17 12/27/17 12/27/17 Range/Units 23:38 05:10 05:10 WBC 10.7 H (3.8-10.6) k/uL RBC 3.09 L (3.80-5.40) m/uL Hgb 8.0 L (11.4-16.0) gm/dL Hct 27.4 L (34.0-46.0) % MCHC 29.3 L (31.0-37.0) g/dL RDW 19.7 H (11.5-15.5) % Neutrophils # 9.3 H (1.3-7.7) k/uL Lymphocytes # 0.5 L (1.0-4.8) k/uL Sodium 148 H (137-145) mmol/L Potassium (3.5-5.1) mmol/L Carbon Dioxide 33 H (22-30) mmol/L BUN 41 H (7-17) mg/dL Glucose 113 H (74-99) mg/dL POC Glucose (mg/dL) 113 H (75-99) mg/dL AST 50 H (14-36) U/L Total Protein 6.0 L (6.3-8.2) g/dL Albumin 2.9 L (3.5-5.0) g/dL Microbiology - Last 24 Hours (Table) 12/24/17 11:30 Catheter Tip Culture - Final Catheter Tip Assessment and Plan Assessment: 1. Status post CABG with mitral valve replacement 2. Acute blood loss anemia with massive blood transfusions postoperatively, in a patient with history of GI bleed 3. Hypertension 4. Left subclavian stenosis 5. Proximal atrial fibrillation/flutter status post cardioversion with recurrence of atrial fibrillation 6. Acute Hypoxic respiratory failure, Re intubated x2. Status post tracheostomy 7. Obesity, BMI 41.6 8. S/P PICC line placement 9. 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 Acute UTI Serratia marcescens, E. coli 11. Bilateral pleural effusions, improved with diuretics. Possible aspiration pneumonia, possible fluid overload. 12. Sternal wound debridement, culture growing Serratia marcescens, status post wound VAC. Status post sternal flap grafting. 13. Pressure ulceration of back and buttocks, stage III 14. Diarrhea, ruling out C. difficile colitis. 15. Status post bronchoscopy with left lower lobe mucous plug discovered 16. Rule out ileus, Dobbhoff feedings on hold, PEG tube placement being discussed with plastic surgeon. Plan: Continue on current medication regime , amiodarone, metoprolol , monitoring and symptomatic treatment. Abdominal CT pending, ruling out ileus. PEG tube being discussed with both family and plastic surgeon.Maintain IV antibiotics, nebulized bronchodilators, steroids. Prognosis guarded given multiple complex medical issues. The impression and plan of care has been dictated as directed. : I performed a history and examination of this patient, discussed the same with the dictator. I agree with the dictator's note ,documented as a scribe. Any additional findings or plans will be noted.
[2017-12-27 18:22] LABS: Glucose,Whole Blood 92 mg/dL (75-99)
--- NOTE | 2017-12-27 18:47 | PN ---
PROGRESS NOTE Patient is a 67-year-old pleasant white female who is postop day #31, status post CABG and mitral valve replacement, which was complicated by sternal wound dehiscence for which she underwent grafting and recently had to be intubated for acute respiratory failure. She underwent a tracheostomy 5 days ago and she underwent an EGD with a Dobbhoff tube placement for oral feeding. The patient after she was started on feeding she tolerated well for the first 2 days, but yesterday had a couple of episodes of emesis and this morning the tube feeds was on hold and there was approximately 250 mL of gastric residue noted. In the meantime, the patient was noted to have abdominal distention and hence abdominal x-rays were obtained, which showed evidence of distended small bowel loops as well as gastric distention suspicious for an ileus versus an obstruction. We are consulted for possible PEG tube placement. PHYSICAL EXAMINATION: She appears comfortable no apparent distress. Blood pressure 122/89, pulse rate 93, afebrile. HEENT examination unremarkable. Conjunctivae pink. Sclerae anicteric. Oral cavity no lesions. Neck: Trach present connected to the vent. CHEST: Clear to auscultation. HEART: Regular rate and rhythm. Abdomen was distended, tympanic. Bowel sounds are sluggish. Banding in the right upper quadrant at the site of skin grafting. Extremities 2+ pedal edema. NEUROLOGIC: Awake. LAB: Done from today, WBC 10.7, hemoglobin 8, platelets are normal. Basic metabolic panel is within normal limits. BUN is 41, creatinine 0.8. IMPRESSION: 1. Abdominal distention and abdomen x-ray showing evidence of small and large bowel dilation suggestive of an ileus versus small bowel obstruction. The patient has Dobbhoff feeding tube placed about 4 days ago and presently not able to tolerate the tube feeds with a gastric residue of more than 200 mL this morning and she also had a couple of episodes of nausea, vomiting, all of which probably related to ileus. 2. History of coronary artery disease status post CABG and mitral valve replacement about a month ago, gradually recovering. 3. Acute respiratory failure, has tracheostomy and remains on the vent. RECOMMENDATIONS: 1. We will connect the Dobbhoff tube to continue suction and see if we can accomplish any decompression. If this is not possible, we can use an NG tube to decompress the small bowel. 2. Hold Dobbhoff tube feeds for now. 3. Abdominal x-rays tomorrow morning. 4. If the abdominal x-rays are improving, then I will consider restarting the tube feeds and see if she can tolerate well. 5. In the meantime, continue with IV Reglan 10 mg every 6 hours. 6. At this time, not a candidate for a PEG tube placement. 7. We will re-evaluate in the next 24-48 hours. Thank you for this consultation. MMMARGEL / IJN: [id number] /
[2017-12-27] MEDS: ESCITALOPRAM 10 MG TAB PO SCH (20:04)
[2017-12-27] MEDS: SENNOSIDES-DOCUSATE SODIUM 1 EACH TAB PO SCH (20:04)
[2017-12-27] MEDS: HYDROcodone/APAP 5-325MG 1 EACH TAB PO PRN (20:04)
[2017-12-27] MEDS: VANCOMYCIN 1,500 MG in SODIUM CHLORIDE 0.9% 250 ML IVPB SCH (20:05)
--- NOTE | 2017-12-27 22:43 | P.PN ---
Subjective Progress Note Date: 12/27/17 Principal diagnosis: Sternal wound dehiscence Pleasant 67-year-old female who has an extensive past medical history who is now 14 days postoperative from her open heart procedure it which point in time a mitral valve placement occurred, reverse saphenous vein coronary artery bypass grafting 1 to obtuse marginal, Maze procedure and ligation of the left atrial appendage all occurred interoperatively left ventricular wall tear occurred and was repaired. The patient has a known history of multiple medical troubles before her surgery that included her obesity, COPD and marked deconditioning. Patient has had difficulties recently that included urinary tract infection with E. coli and Serratia and has been treated with intravenous antibiotic therapy with Zosyn. She was having some improvement but then developed dehiscence of her sternal wound and there are plans for surgical debridement tomorrow wound culture showing gram-negative bacilli and with at the infectious diseases consultation was requested. The patient continues to have significant respiratory difficulties and is currently on BiPAP for support. Postoperatively the patient was hemodynamically unstable which made even turning of the patient not possible which has resulted in unavoidable areas of skin breakdown, that are now treatable given her improvement 12/10/2017 reveals the patient to be postoperative from the sternal wound debridement. The surgical note as well as discussion with the surgical team reveals evidence of poor bone quality and all of the sternal wires had pulled through her bony areas. Negative pressure therapy is in place. She is tolerating this well. Plastic surgery consult has been requested for reconstruction of her chest in the near future. Gram-negative bacilli growing from the sternal wound. She is quite comfortable after procedure, chest tube was placed of the left cavity and this is improved some left lung function and she seems less short of breath. The daughter is present and her questions were answered. 12/11/2017 reveals the patient to have had some respiratory distress today and is back on BiPAP at this time. She relates that her pain is under much significant control. Been no other new acute complaints are being made. 12/13/2017 the patient remains in the ICU she is currently on BiPAP but relates that she is quite comfortable. We will work with the nursing staff to change her VAC dressing at this time. await the plastic surgery timeline. 12/15/2017 reveals the patient to remain in intensive care unit, her status has worsened and that she developed flash pulmonary edema and respiratory failure requiring reintubation sedation mechanical ventilation. She underwent bronchoscopy today for removal of mucous plugs and to help with the collapsed left lower lobe. The patient has require some vasopressor support but is more stable this afternoon than earlier. She is sedated and comfortable. She has significant decline of hemoglobin is 7.6. Anticoagulation was held. Is being closely monitored by surgery and they await the plastic surgery intervention. 12/16/2017 cases briefly discussed with the cardiothoracic nurse practitioner in that the wound VAC is being changed today. It is unchanged with no difficulties. No further bleeding is noted. Plastic surgery evaluation apparently will occur tomorrow so the surgical plan can be devised. 12/20/2017 since last visit current thoracic has again change the wound VAC without difficulties. She tolerated it well. She remains on the ventilator at this point in time, does not appear to have any plans for weaning because she will have her plastic closure over open chest tomorrow. She's been hemodynamically stable with intermittent atrial flutter. No significant changes of oxygen requirements, drainage from the wound VAC is minimal as is drainage from her chest tube. 12/21/2017 patient is status post the partial plastic closure of her sternal wound. Complete cardiac coverage occurred but only partial closure was possible. Oxygen requirements are improving postoperative and is being closely watched for any further blood loss anemia. 12/23/2017 reveals the patient to be extubated on BiPAP. She is comfortable with her pain level is about a 2. Shortness of breath is not severe. She is unable to eat and a Dobbhoff will be placed a bit later today to help her with nutritional status to help her recovery. The current situation is discussed with the cardiothoracic surgeon team 12/24/2017 reveals evidence of the changes status in that she has now had a tracheostomy applied due to her chronic respiratory failure. Cardiothoracic surgery has changed the dressing today. Patient is comfortable after her surgery. Denies new acute discomforts. 12/25/2017 reveals that the patient is doing well with her tracheostomy. She is on 35% FiO2 with excellent saturations. The patient relates that she is comfortable her pain level is no more than a 4. She is receiving feedings via the Dobbhoff is tolerating that well but is having a few soft stools without swapnil diarrhea. 12/27/2017 patient remained stable after tracheostomy. With pain level is no more than a 2 at this point in time. Feedings via the Dobbhoff are going well. The wound VAC dressing was changed today without difficulties. Leukocytosis is improving. No hypotension. Objective - Vital Signs Vital signs: Vital Signs Temp 98.4 F 12/27/17 20:00 Pulse 95 12/27/17 20:00 Resp 22 12/27/17 20:00 BP 116/54 12/19/17 10:00 Pulse Ox 100 12/27/17 20:00 Intake & Output 12/27/17 12/27/17 12/28/17 06:59 18:59 06:59 Intake Total 1203 298 13 Output Total 1710 1340 230 Balance -507 -1042 -217 Weight 109.1 kg 109.1 kg Intake: IV 243 246 13 Dextrose 5%-0.45% NaCl 1, 110 110 10 000 ml @ 10 mls/hr IV . Q24H [facility] Rx#:[id number] Fluconazole in NaCl,Iso- 100 Osm 200 mg In Saline 1 100ml.bag @ 100 mls/hr IVPB DAILY [facility] Rx#: [id number] Potassium Chloride 20 meq 100 In Water For Injection 1 100ml.bag @ 50 mls/hr IVPB ONCE ONE Rx#: [id number] Pressure Bag 33 36 3 Tube Feeding 780 52 Other 180 Output: Drainage 680 590 150 Medial Abdomen 30 120 Right Abdomen 650 470 150 Urine 1030 750 80 Other: Voiding Method Indwelling Catheter Indwelling Catheter Indwelling Catheter ABP, PAP, CO, CI - Last Documented Arterial Blood Pressure 134/64 Pulmonary Artery Pressure 38/33 Cardiac Output 5.8 Cardiac Index 2.9 - Exam Obese 67-year-old woman who is now extubated on BiPAP HEENT: Anicteric conjunctiva are pink and moist nasal mucosa grossly intact without significant lesions, there is no thrush. Oral mucosa is dry but no swapinl lesions could be seen Neck: The neck is supple without significant lymphadenopathy or thyromegaly. Tracheostomy intact without bleeding Lungs: Symmetrical air entry is noted. There is scattered crackles but no swapnil bronchial sounds Heart: Irregular with an audible S1 and S2 soft S4 no audible murmur no click or rub Chest: The patient's mid sternotomy incision is now covered with a postoperative dressing from the plastic closure which is reported to be a partial flap closure Abdomen: Obese, Positive bowel sounds soft and nontender without palpable masses or organomegaly. There was no guarding or rebound. Extremities: The upper and lower extremities have evidence of edema harvest site is intact there is some bruising that is noted especially on the left groin area. IV sites are intact. Skin: With the nursing staff the buttocks pressure ulcerations are evaluated which are showing improvement. The ulceration on the skin fold above her buttocks is also evaluated and appears to be improving. Also improvement of the ulceration to the right wrist area. Skin however is now having some blistering due to her hypoalbuminemia and excessive volume. Sternal wound dressing is dry and intact. Neuro: Comfortable at this time pain level is only at 2, no acute changes neurologically - Labs CBC & Chem 7: 12/27/17 05:10 12/27/17 05:10 Labs: Abnormal Lab Results - Last 24 Hours (Table) 12/26/17 12/27/17 12/27/17 Range/Units 23:38 04:42 05:10 WBC 10.7 H (3.8-10.6) k/uL RBC 3.09 L (3.80-5.40) m/uL Hgb 8.0 L (11.4-16.0) gm/dL Hct 27.4 L (34.0-46.0) % MCHC 29.3 L (31.0-37.0) g/dL RDW 19.7 H (11.5-15.5) % Neutrophils # 9.3 H (1.3-7.7) k/uL Lymphocytes # 0.5 L (1.0-4.8) k/uL ABG pCO2 57 H (35-45) mmHg ABG HCO3 32 H (21-25) mmol/L ABG Total CO2 34 H (19-24) mmol/L ABG O2 Saturation 99.0 H (94-97) % Sodium (137-145) mmol/L Carbon Dioxide (22-30) mmol/L BUN (7-17) mg/dL Glucose (74-99) mg/dL POC Glucose (mg/dL) 113 H (75-99) mg/dL AST (14-36) U/L Total Protein (6.3-8.2) g/dL Albumin (3.5-5.0) g/dL Prealbumin (18.0-42.0) mg/dL 0312/27/17 12/27/17 Range/Units 05:10 05:10 12:58 WBC (3.8-10.6) k/uL RBC (3.80-5.40) m/uL Hgb (11.4-16.0) gm/dL Hct (34.0-46.0) % MCHC (31.0-37.0) g/dL RDW (11.5-15.5) % Neutrophils # (1.3-7.7) k/uL Lymphocytes # (1.0-4.8) k/uL ABG pCO2 (35-45) mmHg ABG HCO3 (21-25) mmol/L ABG Total CO2 (19-24) mmol/L ABG O2 Saturation (94-97) % Sodium 148 H (137-145) mmol/L Carbon Dioxide 33 H (22-30) mmol/L BUN 41 H (7-17) mg/dL Glucose 113 H (74-99) mg/dL POC Glucose (mg/dL) 113 H (75-99) mg/dL AST 50 H (14-36) U/L Total Protein 6.0 L (6.3-8.2) g/dL Albumin 2.9 L (3.5-5.0) g/dL Prealbumin 7.0 L (18.0-42.0) mg/dL Microbiology - Last 24 Hours (Table) 12/10/17 10:40 Fungal Culture - Preliminary Chest 12/10/17 10:45 Fungal Culture - Preliminary Chest 12/10/17 10:50 Fungal Culture - Preliminary Chest Laboratory Results WBC 10.7 k/uL (3.8-10.6) H 12/27/17 05:10 RBC 3.09 m/uL (3.80-5.40) L 12/27/17 05:10 Hgb 8.0 gm/dL (11.4-16.0) L 12/27/17 05:10 Hct 27.4 % (34.0-46.0) L 12/27/17 05:10 MCV 88.6 fL (80.0-100.0) 12/27/17 05:10 MCH 25.9 pg (25.0-35.0) 12/27/17 05:10 MCHC 29.3 g/dL (31.0-37.0) L 12/27/17 05:10 RDW 19.7 % (11.5-15.5) H 12/27/17 05:10 Plt Count 427 k/uL (150-450) 12/27/17 05:10 Neutrophils % 87 % 12/27/17 05:10 Neutrophils % (Manual) 98 % 12/05/17 04:25 Lymphocytes % 5 % 12/27/17 05:10 Lymphocytes % (Manual) 1 % 12/05/17 04:25 Monocytes % 4 % 12/27/17 05:10 Monocytes % (Manual) 1 % 12/05/17 04:25 Eosinophils % 2 % 12/27/17 05:10 Basophils % 0 % 12/27/17 05:10 Myelocytes % 1 % 12/03/17 04:15 Neutrophils # 9.3 k/uL (1.3-7.7) H 12/27/17 05:10 Neutrophils # (Manual) 26.95 k/uL (1.3-7.7) H 12/05/17 04:25 Lymphocytes # 0.5 k/uL (1.0-4.8) L 12/27/17 05:10 Lymphocytes # (Manual) 0.28 k/uL (1.0-4.8) L 12/05/17 04:25 Monocytes # 0.4 k/uL (0-1.0) 12/27/17 05:10 Monocytes # (Manual) 0.28 k/uL (0-1.0) 12/05/17 04:25 Eosinophils # 0.2 k/uL (0-0.7) 12/27/17 05:10 Basophils # 0.0 k/uL (0-0.2) 12/27/17 05:10 Myelocytes # (Manual) 0.17 k/uL (0) H 12/03/17 04:15 Nucleated RBCs 0 /100 WBC (0-0) 12/05/17 04:25 Manual Slide Review Performed 12/05/17 04:25 Polychromasia Present 12/03/17 04:15 Hypochromasia Marked 12/27/17 05:10 Poikilocytosis Slight 12/27/17 05:10 Anisocytosis Slight 12/27/17 05:10 Microcytosis Slight 12/17/17 04:45 Target Cells Present 12/03/17 04:15 PT 10.8 sec (9.0-12.0) 12/21/17 04:50 INR 1.1 (<1.2) 12/21/17 04:50 APTT 23.9 sec (22.0-30.0) 12/21/17 04:50 Fibrinogen 334 mg/dL (200-500) 11/26/17 04:22 Sample Site kamilah 12/27/17 04:42 ABG pH 7.37 (7.35-7.45) 12/27/17 04:42 ABG pCO2 57 mmHg (35-45) H 12/27/17 04:42 ABG pO2 102 mmHg (83-108) 12/27/17 04:42 ABG HCO3 32 mmol/L (21-25) H 12/27/17 04:42 ABG Total CO2 34 mmol/L (19-24) H 12/27/17 04:42 ABG O2 Saturation 99.0 % (94-97) H 12/27/17 04:42 ABG Base Excess 7.1 mmol/L 12/27/17 04:42 ABG Hematocrit 24 % (34.0-46.0) L 11/25/17 17:37 Robbi Test no 12/27/17 04:42 ABG Sodium 144 mmol/L (135-146) 11/25/17 17:37 ABG Potassium 3.8 mmol/L (3.4-4.5) 11/25/17 17:37 ABG Ionized Calcium 4.0 mg/dL (4.5-5.3) L 11/25/17 17:37 ABG Glucose 139 mg/dL (75-99) H 11/25/17 17:37 ABG Lactic Acid 2.8 mmol/L (0.5-1.6) H* 11/25/17 17:37 Hemoglobin 7.8 gm/dL (11.4-16.0) L 11/25/17 17:37 FiO2 35 % 12/27/17 04:42 Sodium 148 mmol/L (137-145) H 12/27/17 05:10 Potassium 4.1 mmol/L (3.5-5.1) 12/27/17 05:10 Chloride 105 mmol/L (98-107) 12/27/17 05:10 Carbon Dioxide 33 mmol/L (22-30) H 12/27/17 05:10 Anion Gap 10 mmol/L 12/27/17 05:10 BUN 41 mg/dL (7-17) H 12/27/17 05:10 Creatinine 0.85 mg/dL (0.52-1.04) 12/27/17 05:10 Est GFR (MDRD) Af Amer >60 (>60 ml/min/1.73 sqM) 12/07/17 04:00 Est GFR (MDRD) Non-Af >60 (>60 ml/min/1.73 sqM) 12/07/17 04:00 Est GFR (CKD-EPI)AfAm 82 (>60 ml/min/1.73 sqM) 12/27/17 05:10 Est GFR (CKD-EPI)NonAf 71 (>60 ml/min/1.73 sqM) 12/27/17 05:10 Glucose 113 mg/dL (74-99) H 12/27/17 05:10 POC Glucose (mg/dL) 92 mg/dL (75-99) 12/27/17 18:20 POC Glu Rehab Manager ID Virginia Ware 12/27/17 18:20 Calcium 9.1 mg/dL (8.4-10.2) 12/27/17 05:10 Ionized Calcium Bruce 4.7 mg/dL (4.5-5.3) 12/11/17 15:45 Phosphorus 4.2 mg/dL (2.5-4.5) 12/27/17 05:10 Magnesium 2.0 mg/dL (1.6-2.3) 12/27/17 05:10 Total Bilirubin 0.7 mg/dL (0.2-1.3) 12/27/17 05:10 AST 50 U/L (14-36) H 12/27/17 05:10 ALT 45 U/L (9-52) 12/27/17 05:10 Alkaline Phosphatase 109 U/L (38-126) 12/27/17 05:10 Total Protein 6.0 g/dL (6.3-8.2) L 12/27/17 05:10 Albumin 2.9 g/dL (3.5-5.0) L 12/27/17 05:10 Prealbumin 7.0 mg/dL (18.0-42.0) L 12/27/17 05:10 Arterial Blood Potassium 3.8 mmol/L (3.4-4.5) 11/25/17 17:37 Arterial Blood Glucose 139 mg/dL (75-99) H 11/25/17 17:37 Urine Color Yellow 12/04/17 10:00 Urine Appearance Cloudy (Clear) H 12/04/17 10:00 Urine pH 5.5 (5.0-8.0) 12/04/17 10:00 Ur Specific Higgins 1.015 (1.001-1.035) 12/04/17 10:00 Urine Protein Trace (Negative) H 12/04/17 10:00 Urine Glucose (UA) Negative (Negative) 12/04/17 10:00 Urine Ketones Negative (Negative) 12/04/17 10:00 Urine Blood Negative (Negative) 12/04/17 10:00 Urine Nitrite Negative (Negative) 12/04/17 10:00 Urine Bilirubin Negative (Negative) 12/04/17 10:00 Urine Urobilinogen <2.0 mg/dL (<2.0) 12/04/17 10:00 Ur Leukocyte Esterase Negative (Negative) 12/04/17 10:00 Urine RBC 7 /hpf (0-5) H 12/04/17 10:00 Urine WBC 1 /hpf (0-5) 12/04/17 10:00 Ur Squamous Epith Cells 8 /hpf (0-4) H 12/04/17 10:00 Urine Bacteria Occasional /hpf (None) H 12/04/17 10:00 Urine Mucus Rare /hpf (None) H 12/04/17 10:00 Fluid Source Bronchial Wash 12/15/17 10:40 Fluid Color Colorless 12/15/17 10:40 Fluid Appearance Cloudy 12/15/17 10:40 Fluid RBC 150 /uL 12/15/17 10:40 Fluid Nucleated Cells 6900 /uL 12/15/17 10:40 Fluid Polynuclear WBCs 95 % 12/15/17 10:40 Fluid Mononuclear WBCs 5 % 12/15/17 10:40 Vancomycin Trough 30.0 ug/mL 12/27/17 11:36 Random Vancomycin 21.2 ug/mL 12/16/17 04:15 Heparin-Ind Plt Ab Scrn 0.231 OD (<0.4) 11/29/17 04:50 Virus Source See Below 12/15/17 10:40 Viral Test See Below 12/15/17 10:40 Virus Analysis Interp See Below 12/15/17 10:40 Blood Type A Positive 12/21/17 11:28 Blood Type Recheck No 12/21/17 11:28 Antibody Screen NEGATIVE 12/21/17 11:28 Crossmatch See Detail 12/14/17 10:10 Transfuse Cryo [id number] 11/26/17 00:39 Transfuse Plasma 12/15/2017 12/15/17 05:51 Transfuse Platelets [id number] 11/25/17 14:55 Spec Expiration Date 12/24/2017 - 232712/21/17 11:28 Microbiology 12/10/17 10:40 Chest Fungal Culture - Preliminary 12/10/17 10:45 Chest Fungal Culture - Preliminary 12/10/17 10:50 Chest Fungal Culture - Preliminary 12/24/17 11:30 Catheter Tip Catheter Tip Culture - Final 12/10/17 10:50 Chest Acid Fast Bacilli Smear - Final 12/10/17 10:50 Chest Acid Fast Bacilli Culture - Preliminary 12/10/17 10:45 Chest Acid Fast Bacilli Smear - Final 12/10/17 10:45 Chest Acid Fast Bacilli Culture - Preliminary 12/15/17 10:40 Bronchial Washings - Left Fungal Culture - Preliminary Rachana albicans 12/15/17 10:40 Bronchial Washings - Left Gram Stain - Final 12/15/17 10:40 Bronchial Washings - Left Bronchial Washings Culture - Final Rachana albicans 12/14/17 21:30 Sputum Gram Stain - Final 12/14/17 21:30 Sputum Sputum Culture - Final Rachana albicans 12/15/17 10:40 Bronchial Washings - Left Acid Fast Bacilli Smear - Final 12/15/17 10:40 Bronchial Washings - Left Acid Fast Bacilli Culture - Preliminary 12/10/17 10:50 Chest Anaerobic Culture - Final 12/10/17 10:40 Chest Anaerobic Culture - Final 12/10/17 10:45 Chest Anaerobic Culture - Final 12/13/17 05:27 Urine,Catheterized Urine Culture - Final 12/10/17 10:40 Chest Gram Stain - Final 12/10/17 10:40 Chest Wound Culture - Final Serratia marcescens 12/10/17 10:45 Chest Gram Stain - Final 12/10/17 10:45 Chest Tissue Culture - Final Serratia marcescens 12/10/17 10:50 Chest Gram Stain - Final 12/10/17 10:50 Chest Tissue Culture - Final Serratia marcescens 12/07/17 15:40 Chest Gram Stain - Final 12/07/17 15:40 Chest Wound Culture - Final Serratia marcescens 12/04/17 10:00 Urine,Voided Urine Culture - Final Escherichia coli Serratia marcescens 11/26/17 04:00 Sputum Gram Stain - Final 11/26/17 04:00 Sputum Sputum Culture - Final Assessment and Plan (1) Severe mitral regurgitation Current Visit: Yes Status: Chronic Code(s): I34.0 - NONRHEUMATIC MITRAL ( VALVE) INSUFFICIENCY SNOMED Code(s): 45977590 (2) CAD (coronary artery disease) Current Visit: Yes Status: Chronic Code(s): I25.10 - ATHSCL HEART DISEASE OF [place] CORONARY ARTERY W/O ANG PCTRS SNOMED Code(s): 76171320 (3) Acute blood loss as cause of postoperative anemia Current Visit: Yes Status: Acute Code(s): D62 - ACUTE POSTHEMORRHAGIC ANEMIA SNOMED Code(s): 11802948355022650 (4) Pressure ulcer of contiguous region involving back and buttock, stage 3 Current Visit: Yes Status: Acute Code(s): L89.43 - PRESSR ULCER OF CONTIG SITE OF BACK, BUTTOCK AND HIP, STG 3 SNOMED Code(s): 351906730 (5) Sternal wound dehiscence Narrative/Plan: 67-year-old woman presents to Hospital for treatment of her severe mitral irritation. Underwent mitral valve replacement, coronary artery bypass grafting 1, Maze procedure and clipping of the left atrial appendage with a complication of the left ventricular wall tear. The patient has had a very protracted recovery she is now day 14 post operative and is still having difficulty with her respiratory status requiring BiPAP. The patient's nutritional status and underlying comorbidities have complicated her care. She now has evidence of the sternal dehiscence with evidence of gram negatives bacilli being found at the site. There is evidence of urinary tract infection with E. coli and Serratia. This Serratia species is somewhat resistant and consequently we'll alter the current antimicrobial therapy from Zosyn to meropenem to ensure coverage for other potential pathogens that are resistant that could be in the sternal wound while we await cultures. The patient will be going to the operating room tomorrow for debridement and wound VAC placement. The cultures were further direct the overall course of antibiotics. Urinary infection appears to be doing somewhat better. The patient fortunately is comfortable and doing well with her BiPAP. 12/10/2017 the patient is status post surgery and actually is feeling a bit better this afternoon than yesterday. Her pain is quite well controlled. She is not on BiPAP. She is less short of breath. Wound culture has verified the Serratia marcescens to the sternal wound. We'll constantly continue the current course of meropenem due to some of the resistance patterns or seeing with the species. Continue local care at this point time with the negative pressure system to the sternal wound. The plastic surgery consult is being requested for reconstruction of her chest. She will require a course of intravenous antibiotic therapy given her complex infection. Dual-lumen PICC is already in place. We'll repeat the discharge planners as to her place of rehab. 12/11/2017 the patient is metabolically stable but is having difficulties with her respiratory status and is now back on BiPAP which has been intermittent over the last multiple days. Negative pressure therapy remains intact and the sternum and we await the plastic surgery intervention. 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 Continue supportive care, and nutritional supplements as possible to improve for tissue healing. 12/13/2017 patient is on BiPAP. She is comfortable at this time. Receiving her intravenous antibiotic therapy without difficulties. At this time the surgeon present in a sterile fashion the wound VAC is removed. Surgeon evaluates and then the wound VAC is reapplied with 2 of the white foam, periwound protected with DuoDERM no difficulty with the seal. Merrem continues. 12/15/2017 the patient has had marked worsening of her status in that she had respiratory failure requiring reintubation and mechanical ventilation. She is now sedated and comfortable but has had some hemodynamic instability and is now back on vasopressor therapy. Bronchoscopy is performed and suctioning of mucous plugs as allowed some improvement of her pulmonary status. Further cultures are process. Meropenem and vancomycin continue for the isolated Serratia and concerns for resistant gram-positive infection at this time. Plastic surgery evaluation is in process and surgical plans for later this week appear to be possible. 12/16/2017 reveals the patient to be stable from the last 24 hours. Her ventilatory settings are similar. She's currently not on vasopressor therapy. She is tolerating current antibiotic therapy well with no difficulties with rash and diarrhea or marked changes of her hematological parameters. She's had no further active bleeding. Sputum culture with gram-positive cocci seen vancomycin was added we await final cultures. 12/20/2017 patient remained stable and is being prepped for her sternal reconstruction surgery tomorrow. She's not on vasopressor therapy, and vent settings are stable. Most recent bronchoscopy showed mucous plug no evidence of any new pathogens except yeast was found likely from upper airways. Fluconazole was added given her significant risks, although fungal pneumonia is not occurring at this time. At the time of reconstruction repeat samplings from her sternum will be helpful to help direct the course of antibiotic therapy , pathology and culture of the sternum will be helpful. Remains on the meropenem and vancomycin at this time. 12/21/2017 the patient is status post the sternal reconstruction with muscle flap, reportedly is only a partial closure at this time. However visit. The cardiac structure is completely covered. The patient is showing improvement in her cardiopulmonary status today. No active bleeding is noted. She is tolerating current antibiotic therapy well with meropenem and vancomycin. Await final culture and pathological data to help derive the course of her antibiotic therapy 12/23/2017 reveals the patient to be improved, she has been extubated and tolerating BiPAP well. The case is discussed with the cardiothoracic surgeon. The muscle flap was then performed and there is a biological skin substitute over the flap. She related that the plastic surgeon would not allow a wound VAC to be placed for approximately 10 days after the surgery. We will monitor. Continue current antibiotic therapy planning a multiweek course of therapy for the complex sternal wound infection. 12/24/2017 reveals the patient to have further improvement that she has had a tracheostomy placed. This will hopefully help her long-term weaning situation and also help with the nutritional difficulties. As she has improvement of her status hopefully the significant difference with her skin from the edema low albumin and blistering will improve. Receiving extensive antibiotic therapy for the sternal wound dehiscence will continue with the meropenem and vancomycin at this time. 12/25/2017 reveals the patient to have some improvement in the last 24 hours. She's doing well with a tracheostomy and is on 35% FiO2. Pain control is well at this point in time. Her spitting edema seems to be slightly improving and does not have as many blisters that she was having. Still does have anasarca but appears to be a bit less tight than she was a day ago. Her wounds are improving with the local wound care. Antibiotic therapy continues with meropenem and vancomycin for the sternal wound dehiscence and infection. Dressing changes have been per the cardiothoracic team to the chest wound. The abdominal wound is healing well and is having some serous drainage related to the anasarca. Hopefully with improving edema status and improve nutritional status anasarca will resolve. 12/27/2017 reveals a patient with further improvement. Her anasarca is improving and she is having less edema. She is tolerating the intravenous antibiotic therapy of meropenem and vancomycin for her sternal wound dehiscence. Leukocytosis in general is improved. No other new infections are noted. She had a wound VAC dressing change today of the sternal area. Current Visit: Yes Status: Acute Code(s): T81.32XA - DISRUPTION OF INTERNAL OPERATION (SURGICAL) WOUND, NEC, INIT SNOMED Code(s): 28937276
[2017-12-28] MEDS: HEPARIN SODIUM,PORCINE 5,000 UNIT/ML 1 ML VIAL SQ SCH ×3 (00:03→16:21)
[2017-12-28] MEDS: INSULIN ASPART 100 UNIT/ML 1 ML 10 ML VIAL SQ SCH ×4 (00:03→18:32)
[2017-12-28] MEDS: METOCLOPRAMIDE 5 MG/ML 2 ML VIAL IVP SCH ×4 (00:03→18:33)
[2017-12-28 00:04] LABS: Glucose,Whole Blood 89 mg/dL (75-99)
[2017-12-28] MEDS: IPRATROPIUM-ALBUTEROL 3 ML NEB INHALATION SCH ×6 (03:12→23:33)
[2017-12-28 05:03] LABS: Albumin 2.5 g/dL (3.5-5.0); Calcium 8.9 mg/dL (8.4-10.2); Phosphorus 4.1 mg/dL (2.5-4.5); Potassium 3.8 mmol/L (3.5-5.1); Total Bilirubin 0.6 mg/dL (0.2-1.3); Total Protein 5.5 g/dL (6.3-8.2)
[2017-12-28 05:14] LABS: Anisocytosis Slight; HCT 23.4 % (34.0-46.0); Hypochromasia Marked; MCH 26.3 pg (25.0-35.0); MCHC 29.8 g/dL (31.0-37.0); MCV 88.1 fL (80.0-100.0); Mean Platelet Volume 7.4; Platelet Count 400 k/uL (150-450); Poikilocytosis Moderate; RBC 2.65 m/uL (3.80-5.40); RDW 19.4 % (11.5-15.5); WBC 9.5 k/uL (3.8-10.6)
[2017-12-28 05:22] LABS: ABG Base Excess 7.7 mmol/L; ABG HCO3 33 mmol/L (21-25); ABG Oxygen Saturation 98.2 % (94-97); ABG PCO2 54 mmHg (35-45); ABG PH 7.39 (7.35-7.45); ABG PO2 99 mmHg (83-108); ABG TCO2 34 mmol/L (19-24)
[2017-12-28] MEDS: POTASSIUM CHLORIDE 10 MEQ in WATER FOR INJECTION 1 100ML.BAG IVPB SCH ×2 (05:46→06:58)
[2017-12-28] MEDS: BUDESONIDE 1 MG/2 ML NEBU INHALATION SCH ×2 (07:11→19:44)
--- NOTE | 2017-12-28 08:11 | XR ---
EXAMINATION TYPE: XR chest 1V portable DATE OF EXAM: 12/28/2017 COMPARISON: 12/27/2017 HISTORY: Abnormal x-ray TECHNIQUE: Single frontal view of the chest is obtained. FINDINGS: Persistent bilateral consolidation and pleural effusion noted. Postoperative change, vascu lar stent, feeding tube, tracheostomy tube, and cardiomegaly stable. Underlying venous congestion juan jose pected. PICC line stable. IMPRESSION: Stable bilateral consolidation and pleural effusion correlate for CHF
[2017-12-28] MEDS: ASPIRIN 81 MG PO SCH (08:32)
[2017-12-28] MEDS: ATORVASTATIN 40 MG TAB PO SCH (08:32)
[2017-12-28] MEDS: AMIODARONE 200 MG TAB PO SCH (08:32)
[2017-12-28] MEDS: PANTOPRAZOLE 40 MG TABLET PO SCH (08:32)
[2017-12-28] MEDS: DEXTROSE 5%-0.45% NACL 1,000 ML IV SCH (08:33)
[2017-12-28] MEDS: METOPROLOL TARTRATE 50 MG TAB NG-TUBE SCH ×2 (08:33→21:11)
[2017-12-28] MEDS: FLUCONAZOLE IN NACL,ISO-OSM 200 MG in SALINE 1 100ML.BAG IVPB SCH (08:33)
[2017-12-28] MEDS: LACTOBACILLUS ACIDOPH & BULGAR 1 EACH PACKET PO SCH ×3 (08:33→20:36)
[2017-12-28] MEDS: CHLORHEXIDINE GLUCONATE 15 ML CUP MUCOUS MEM SCH ×2 (08:35→20:35)
[2017-12-28] MEDS ORDERED: FUROSEMIDE 10 MG/ML 4 ML VIAL IV STA (08:53)
[2017-12-28] MEDS ORDERED: ALBUMIN HUMAN 25% 50 ML in EMPTY BAG 1 BAG IVPB ONE (08:53)
--- NOTE | 2017-12-28 09:15 | XR ---
EXAMINATION TYPE: XR abdomen 1V DATE OF EXAM: 12/28/2017 COMPARISON: 12/27/2017 HISTORY: Pain TECHNIQUE: One view abdominal series FINDINGS: Multiple dilated small bowel loops are seen. Surgical changes noted and there is an apparent multiple tubings or catheters one of which may represent a feeding tube. Surgical drain right abdomen also mendoza spected. There is retained fecal debris in the rectum. Chronic rib deformities are seen and there is postoperative change involving the heart with bilateral subsegmental consolidation and tiny effusion. IMPRESSION: 1. Markedly dilated small bowel loops. Differential diagnosis includes severe postoperative ileus or partial obstruction. Findings are progressed from the prior exam.
--- NOTE | 2017-12-28 10:40 | P.PN ---
Subjective Progress Note Date: 12/28/17 Principal diagnosis: 67-year-old female status post CABG one month ago with MVR complicated by sternal wound dehiscence. Status post tracheostomy. Status post EGD with Dobbhoff tube placement. Reevaluated today in regards to recent abdominal distention possible ileus. Patient's tube feedings were stopped yesterday x- ray showed possible ileus. She been receiving Reglan. This morning family is at bedside. She is passing bowel movements and flatus. Denies nausea vomiting. Abdominal x-rays this morning reported markedly dilated small bowel loops severe postoperative ileus or partial obstruction even though patient is denying nausea vomiting and passing flatus and bowel movements. Afebrile. White count 9.5. Hemoglobin 7. Objective - Vital Signs Vital signs: Vital Signs Temp 98.9 F 12/28/17 08:00 Pulse 79 12/28/17 09:00 Resp 21 12/28/17 09:00 BP 116/54 12/19/17 10:00 Pulse Ox 99 12/28/17 09:00 Intake & Output 12/27/17 12/28/17 12/28/17 18:59 06:59 18:59 Intake Total 298 519 126 Output Total 1340 1118 500 Balance -1042 -599 -374 Weight 109.1 kg 106 kg Intake: IV 246 519 126 Dextrose 5%-0.45% NaCl 1, 110 130 20 000 ml @ 10 mls/hr IV . Q24H [facility] Rx#:[id number] Fluconazole in NaCl,Iso- 100 100 Osm 200 mg In Saline 1 100ml.bag @ 100 mls/hr IVPB DAILY [facility] Rx#: [id number] Potassium Chloride 10 meq 100 In Sodium Chloride 0.9% 100 ml @ 100 mls/hr IV Q1H [facility] Rx#:[id number] Pressure Bag 36 39 6 Vancomycin 1,500 mg In 250 Sodium Chloride 0.9% 250 ml @ 125 mls/hr IVPB Q24H [facility] Rx#:[id number] Tube Feeding 52 Output: Drainage 590 690 450 Medial Abdomen 120 Medial Chest Incision - 100 Woundvac Right Abdomen 470 690 350 Urine 750 428 50 Other: Voiding Method Indwelling Catheter Indwelling Catheter # Bowel Movements 1 ABP, PAP, CO, CI - Last Documented Arterial Blood Pressure 134/57 Pulmonary Artery Pressure 38/33 Cardiac Output 5.8 Cardiac Index 2.9 - Exam General appearance: The patient is alert, oriented, in no acute distress. HET: Head is normocephalic and atraumatic. Pupils are equal and reactive. Oropharynx is clear without lesions. Dobbhoff presently connected to suction with bilious fluid.. Neck: Supple without lymphadenopathy. Trachea midline. Tracheostomy without drainage or bleeding. Heart: S1 S2. Sternal wound dressing. Lungs: No crackles or wheezes are heard. Abdomen: Soft, nontender, bloated with bowel sounds. No peritoneal signs. No palpable organomegaly or masses. - Labs CBC & Chem 7: 12/28/17 04:30 12/28/17 04:30 Labs: Abnormal Lab Results - Last 24 Hours (Table) 12/27/17 12/27/17 12/27/17 Range/Units 04:42 05:10 12:58 RBC (3.80-5.40) m/uL Hgb (11.4-16.0) gm/dL Hct (34.0-46.0) % MCHC (31.0-37.0) g/dL RDW (11.5-15.5) % ABG pCO2 57 H (35-45) mmHg ABG HCO3 32 H (21-25) mmol/L ABG Total CO2 34 H (19-24) mmol/L ABG O2 Saturation 99.0 H (94-97) % Sodium (137-145) mmol/L Carbon Dioxide (22-30) mmol/L BUN (7-17) mg/dL POC Glucose (mg/dL) 113 H (75-99) mg/dL AST (14-36) U/L Total Protein (6.3-8.2) g/dL Albumin (3.5-5.0) g/dL Prealbumin 7.0 L (18.0-42.0) mg/dL 12/28/17 12/28/17 12/28/17 Range/Units 04:30 04:30 05:20 RBC 2.65 L (3.80-5.40) m/uL Hgb 7.0 L* (11.4-16.0) gm/dL Hct 23.4 L (34.0-46.0) % MCHC 29.8 L (31.0-37.0) g/dL RDW 19.4 H (11.5-15.5) % ABG pCO2 54 H (35-45) mmHg ABG HCO3 33 H (21-25) mmol/L ABG Total CO2 34 H (19-24) mmol/L ABG O2 Saturation 98.2 H (94-97) % Sodium 146 H (137-145) mmol/L Carbon Dioxide 32 H (22-30) mmol/L BUN 44 H (7-17) mg/dL POC Glucose (mg/dL) (75-99) mg/dL AST 44 H (14-36) U/L Total Protein 5.5 L (6.3-8.2) g/dL Albumin 2.5 L (3.5-5.0) g/dL Prealbumin (18.0-42.0) mg/dL Microbiology - Last 24 Hours (Table) 12/15/17 10:40 Acid Fast Bacilli Smear - Final Bronchial Washings - Left Acid Fast Bacilli Culture - Preliminary 12/10/17 10:50 Acid Fast Bacilli Smear - Final Chest Acid Fast Bacilli Culture - Preliminary 12/10/17 10:45 Acid Fast Bacilli Smear - Final Chest Acid Fast Bacilli Culture - Preliminary 12/10/17 10:40 Fungal Culture - Preliminary Chest 12/10/17 10:45 Fungal Culture - Preliminary Chest 12/10/17 10:50 Fungal Culture - Preliminary Chest Assessment and Plan Assessment: Impression: 1. Abdominal distention possible ileus possible small bowel obstruction without clinical evidence of nausea vomiting presently passing flatus and bowel movements. Morning x-ray show progression from prior exam. Status post recent EGD with Dobbhoff tube insertion tube feeds presently on hold. 2. Status post CABG MVR one month ago gradually recovering. 3. Acute respiratory failure status post tracheostomy. 4. Sternal wound dehiscence. Recommendations: 1. Patient clinically is passing flatus and bowel movements without nausea or vomiting tube feeds are presently on hold. 2. Recommend general surgical evaluation second opinion for ileus possible small bowel obstruction before restarting Dobbhoff feeds. 3. Insertion of PEG tube is not planned at this time secondary to increased risk of PEG tube infection; insertion of PEG tube is too close to sternal wound ; presently receiving antibiotics for sternal wound dehiscence status post skin graft reconstruction muscle flap closure surgery. 4. We'll continue to follow closely with you. Plan of care was discussed with patient's daughter all questions or concerns were answered to her satisfaction. Assessment and plan a care discussed with Dr. Plummer
--- NOTE | 2017-12-28 12:00 | P.PN ---
Subjective Progress Note Date: 12/28/17 A 67-year-old female patient was being seen in follow-up in the intensive care unit. The patient is postop day #32 following her cardiac surgery. The patient underwent a one-vessel bypass surgery and mitral valve replacement and I 'm seeing her today in follow-up. Events postop were all noted and I was updated by the nursing staff regarding details on her progress. The patient underwent a surgical flap of the sternal wound as the patient had wound dehiscence and infection and she is currently postop day #6. The patient also has a tracheostomy tube in place and the patient is postop day #3 post trach. The previous cultures have indicated Serratia marcescens and the patient remains on IV Merrem. Note that during the course of her ICU stay the patient developed complete left lung collapse and she required bronchoscopy and the sputum has indicated Rachana. She is also on Diflucan. The patient also has a tracheostomy tube in place and the patient is postop day #3 post trach. T This morning, the patient is awake and alert. She is following commands and answering questions. She is an assist-control mode of ventilation. The patient is being given brief trials with pressure support and she initially started tolerating pressure support for one hour then subsequently 2 hours. She is not ready for further weaning or prolonged periods where she is placed on pressure support. Currently she is on a assist-control mode at the rate of 20 with tidal volume 400, and 35% FiO2 with a PEEP of 5. She has a tracheostomy tube which is a Shiley trach tube #8. Surgical wound site on the tracheostomy tube is clean. The patient is not having significant orotracheal secretions. The patient is a bit tachypneic as her abdomen is somewhat distended on today's evaluation. I can't understand that the patient was throwing up throughout the night. Her abdomen is somewhat distended and tympanic. She is producing some loose bowel movements. The patient had a Dobbhoff catheter for enteral feeding and nutritional support. The feeding was stopped this morning. She is not complaining of any abdominal pain however abdomen is distended. On today's chest x-ray there is a large gastric bubble. There is also small bilateral pleural. Effusions. She has underlying cardiomegaly. Sternum stable clean and intact. The HENRI drain in the sternal wound is still in place. Her blood gases from today showed a pH of 7.37 with a pCO2 of 57 and pO2 of 102. Patient continues to be edematous in the upper and lower extremity more so in the legs. The patient is being diuresis with Lasix. The patient is a negative fluid balance of 471 mL over the past 24 hours. The patient is on no pressors. Cardiac rhythm is sinus rhythm. On 12/28/2017 the patient is being seen for a follow-up. The patient is wide awake and alert. She remains on a mechanical ventilator. She is on a assist- control mode of ventilation. The patient has a tracheostomy tube #8 Shiley. The patient is in a rate of 20, tidal volume 400, FiO2 of 35% and a PEEP of 5. Chest x-ray findings are stable. remains distended and tympanic. The patient is an underlying ileus. The tube feeds have been placed on hold. The Dobbhoff is attached to suction. The follow-up abdominal film showed Marked dilation of the small bowel loop and this is consistent with ileus. The patient is currently off tube feeds. Meanwhile, the patient's weaning parameters today at baseline showed a rapid shallow breathing index of 86 with a vital Of 450-480. The patient is not ready for any weaning trials at this point. Meanwhile, we' ll continue supportive care. The patient's wound VAC over the anterior chest has gained approximately 1160 MO's for this current shift. The abdominal wound drainage is quite extensive. It drained approximately 2000 MO's of serosanguineous fluid and over the past 8 hours it drained around 1178 ML's. The patient remains on a combination of antibiotics. The patient is receiving a combination of vancomycin and Merrem. The antibiotic coverage is mainly for sternal wound infection/dehiscence. The wound VAC is been applied to the sternal area. No fever. No leukocytosis and no hypotension. No other complaints otherwise. Hemoglobin is low at 7.0. Objective - Vital Signs Vital signs: Vital Signs Temp 98.9 F 12/28/17 08:00 Pulse 77 12/28/17 11:26 Resp 18 12/28/17 10:00 BP 116/54 12/19/17 10:00 Pulse Ox 100 12/28/17 10:00 Intake & Output 12/27/17 12/28/17 12/28/17 18:59 06:59 18:59 Intake Total 298 519 199 Output Total 1340 1118 585 Balance -1042 -599 -386 Weight 109.1 kg 106 kg Intake: IV 246 519 199 Albumin Human 25% 50 ml 50 In Empty Bag 1 bag @ 100 mls/hr IVPB [facility] Rx#: [id number] Dextrose 5%-0.45% NaCl 1, 110 130 40 000 ml @ 10 mls/hr IV . Q24H [facility] Rx#:[id number] Fluconazole in NaCl,Iso- 100 100 Osm 200 mg In Saline 1 100ml.bag @ 100 mls/hr IVPB DAILY [facility] Rx#: [id number] Potassium Chloride 10 meq 100 In Sodium Chloride 0.9% 100 ml @ 100 mls/hr IV Q1H [facility] Rx#:[id number] Pressure Bag 36 39 9 Vancomycin 1,500 mg In 250 Sodium Chloride 0.9% 250 ml @ 125 mls/hr IVPB Q24H [facility] Rx#:[id number] Tube Feeding 52 Output: Drainage 590 690 490 Medial Abdomen 120 Medial Chest Incision - 100 Woundvac Right Abdomen 470 690 390 Urine 750 428 95 Other: Voiding Method Indwelling Catheter Indwelling Catheter Indwelling Catheter # Bowel Movements 1 ABP, PAP, CO, CI - Last Documented Arterial Blood Pressure 139/63 Pulmonary Artery Pressure 38/33 Cardiac Output 5.8 Cardiac Index 2.9 - Exam - Constitutional General appearance: Present: cooperative, no acute distress, obese, the patient has a #8 tracheostomy Shiley trach tube in place. She is synchronous with the mechanical ventilator. She is awake and interactive. - Neck Details: Neck is supple, no JVD, no lymphadenopathy. Tracheostomy tube is midline and intact, sutures in place. - Respiratory Details: Lungs sounds essentially diminished throughout. Respirations are symmetrical and nonlabored with mechanical ventilator support. Oxygen saturation are 99% with current ventilator settings. Current ventilator settings is an assist- control: Cycle ventilator - Cardiovascular Details: Regular rhythm and rate. S1 and S2 present, negative for S3, gallop or murmur. Chest with open wound, postoperative muscle flap performed. The patient has a one leg applied to the anterior chest Dressing with scant serous drainage. Generalized anasarca with weeping. Vance wraps in place from toes to thighs to bilateral lower extremities. Knee-high sequential compression devices in place to her bilateral lower extremities. Left brachial PICC line in place and functioning. Right brachial arterial line in place and functioning. - Gastrointestinal Gastrointestinal Comment(s): Abdomen is soft, yet this is distended and tympanic. The patient had diminished bowel sounds. No direct tenderness but no rebound tenderness. No guarding. Abdominal wound is dry clean and intact. The patient has a HENRI drain in the lower abdominal wall which is draining quite extensively. The drainage is serous segments in nature. - Genitourinary Genitourinary Comment(s): Mason catheter for accurate I&O. Draining clear yellow urine. - Integumentary Integumentary Comment(s): Skin is warm and dry. No clubbing or cyanosis. Anasarca with scattered areas of blistering and weeping thin serous drainage. Pressure ulcerations to her buttocks with local wound care. Ulceration to her right wrist area with dressing in place with scant serous drainage. Dressing in place to her chest wound. - Neurologic Neurologic Comment(s): Alert and following verbal commands. Nodding her head yes and no appropriately to questions. Moving all 4 extremities appropriately with weak movements. - Musculoskeletal Musculoskeletal: Present: generalized weakness, strength equal bilaterally - Psychiatric Psychiatric Comment(s): Flat affect. Psychiatric: Present: intact judgment & insight - Labs CBC & Chem 7: 12/28/17 04:30 12/28/17 04:30 Labs: Abnormal Lab Results - Last 24 Hours (Table) 12/27/17 12/27/17 12/27/17 Range/Units 04:42 05:10 12:58 RBC (3.80-5.40) m/uL Hgb (11.4-16.0) gm/dL Hct (34.0-46.0) % MCHC (31.0-37.0) g/dL RDW (11.5-15.5) % ABG pCO2 57 H (35-45) mmHg ABG HCO3 32 H (21-25) mmol/L ABG Total CO2 34 H (19-24) mmol/L ABG O2 Saturation 99.0 H (94-97) % Sodium (137-145) mmol/L Carbon Dioxide (22-30) mmol/L BUN (7-17) mg/dL POC Glucose (mg/dL) 113 H (75-99) mg/dL AST (14-36) U/L Total Protein (6.3-8.2) g/dL Albumin (3.5-5.0) g/dL Prealbumin 7.0 L (18.0-42.0) mg/dL 12/28/17 12/28/17 12/28/17 Range/Units 04:30 04:30 05:20 RBC 2.65 L (3.80-5.40) m/uL Hgb 7.0 L* (11.4-16.0) gm/dL Hct 23.4 L (34.0-46.0) % MCHC 29.8 L (31.0-37.0) g/dL RDW 19.4 H (11.5-15.5) % ABG pCO2 54 H (35-45) mmHg ABG HCO3 33 H (21-25) mmol/L ABG Total CO2 34 H (19-24) mmol/L ABG O2 Saturation 98.2 H (94-97) % Sodium 146 H (137-145) mmol/L Carbon Dioxide 32 H (22-30) mmol/L BUN 44 H (7-17) mg/dL POC Glucose (mg/dL) (75-99) mg/dL AST 44 H (14-36) U/L Total Protein 5.5 L (6.3-8.2) g/dL Albumin 2.5 L (3.5-5.0) g/dL Prealbumin (18.0-42.0) mg/dL Microbiology - Last 24 Hours (Table) 12/15/17 10:40 Acid Fast Bacilli Smear - Final Bronchial Washings - Left Acid Fast Bacilli Culture - Preliminary 12/10/17 10:50 Acid Fast Bacilli Smear - Final Chest Acid Fast Bacilli Culture - Preliminary 12/10/17 10:45 Acid Fast Bacilli Smear - Final Chest Acid Fast Bacilli Culture - Preliminary 12/10/17 10:40 Fungal Culture - Preliminary Chest 12/10/17 10:45 Fungal Culture - Preliminary Chest 12/10/17 10:50 Fungal Culture - Preliminary Chest Assessment and Plan Plan: Assessment 1 coronary artery bypass surgery with single-vessel bypass and mitral valve replacement/bioprosthetic valve. The patient is postop day #33 2 sternal wound infection with Serratia marcescens with subsequent dehiscence. The patient underwent wound debridement with subsequent muscle flap and the patient is postop day #7. The patient remains on a combination of Merrem and vancomycin. 3 prolonged ventilator dependent respiratory failure, status post tracheostomy tube insertion and the patient is postop day #4. The patient remains on assist control mode of ventilation. Not ready for weaning. Weaning parameters were checked today and the patient's rapid shallow breathing index was 86 with a low vital capacity less than 500. Not ready for weaning still. 4 acute on chronic respiratory failure, multifactorial. The patient's sternal wound and the muscle flap is healing for now. She is weak and she is not ready for further weaning based on her daily parameters. Doubt superimposed pneumonia at this point 5 increased edema both upper and lower extremities, improving 6 paroxysmal atrial fibrillation current rhythm is sinus 7 peripheral vascular disease 8 left subclavian artery stenosis status post insertion of an endovascular stent 9 anemia, a expected outcome of prolonged ICU stay and multiple surgeries 10 ileus, abdominal distention with increased emesis. The patient is currently off tube feeds. The patient has an ileus, probably a small bowel and large bowel ileus, please refer to the potassium of the abdomen 11 left lung collapse status post bronchoscopy and therapeutic it was suctioning. Patient has Rachana within the sputum currently on Diflucan 12 hypertension 13 hyperlipidemia 14 anemia multifactorial with a hemoglobin level of 7.0 PLAN Keep the tube feeds on hold. Continue with IV Reglan. Repeat potassium of the abdomen in the morning. Consider a general surgery consultation regarding the small/large bowel ileus .Monitor the output from the wound VAC and a HENRI drain from the right lower abdominal wounds. The patient continues to have extensive drainage. The patient is an assist-control mode of ventilation. Not ready for any weaning. Weaning parameters remain suboptimal. Chest x-ray was reviewed. No other acute abnormality is noted. She has small better pleural effusions. Hemoglobin stable at 7.0. Continue current antibiotic coverage. ID is on the case. Thoracic surgery is on the case. May benefit from a general surgery consultation regarding the ileus which seems to be the acute problem for now. Case was discussed with the thoracic surgery. We'll continue to follow. Critically care evaluation. 32 minutes. Time with Patient: Greater than 30
[2017-12-28 12:34] LABS: Glucose,Whole Blood 89 mg/dL (75-99)
--- NOTE | 2017-12-28 12:44 | P.PN ---
Subjective Progress Note Date: 12/28/17 Principal diagnosis: Severe mitral valve regurgitation. Coronary artery disease. Preoperative paroxysmal atrial fibrillation on outpatient Coumadin for anticoagulation. Recent hospitalization for lower GI bleed, and duodenal ulcer. History of left subclavian stenosis with stent placement 2014 with recent discovery of critical re-in-stent stenosis. Previous tobacco dependence with preoperative FEV1 60% of predicted. Hypertension. Hyperlipidemia. Depression on Lexapro. Gallbladder disease. Family history of heart disease. Preoperative nasal swab positive for MRSA. Preoperative anemia. POD #33 and Mitral valve replacement using a 25 mm Ribera bioprosthetic tissue valve. Coronary artery bypass grafting 1, a reverse greater saphenous vein graft to the obtuse marginal coronary artery. Endoscopic harvesting of the left greater saphenous vein. Modified MAZE procedure. The report wasn't back yet not back in Ligation of the left atrial appendage using a 40 mm AtriClip. Epi- aortic ultrasound. Intraoperative transesophageal echocardiogram. Intraoperative left ventricular wall tear, an unexpected but potential outcome of surgery. Acute blood loss anemia, an expected outcome given patient's preoperative anemia and intraoperative bleeding. Postoperative prolonged mechanical ventilation secondary to hemodynamic instability, an unexpected but potential outcome of surgery given the extensive nature of her postoperative course. Sternal incision dehiscence, possible outcome of surgery given the patient's obesity, nutrition status and ability. POD #18 sternal wound debridement with placement of wound VAC. POD #13 bronchoscopy and bronchoalveolar lavage of the left lower lobe and extraction of mucous plug POD #7 right rectus abdominous muscle flap closure, open sternal wound. Closure of sternal wound and muscle flap with skin graft substitute, 238 cm. Implantation of reconstructive graft for closure of abdominal wall wound, [address] Krause. Postoperative left lower lobe collapse secondary to mucous plugging, and unexpected but potential outcome of surgery. Bronchial washings positive for Rachana species. Patient is currently lying in bed with her head elevated at 45. She is in no acute distress. She is continues to complain feeling bloated. No further emesis in the last 24 hours. Her tracheostomy is midline and intact, sutures are in place, she remains with mechanical ventilator support. Bedside telemetry showing normal sinus rhythm heart rate 77. Dobbhoff tube in place, tube feedings continued to be on hold due to her complaints of feeling bloated. Objective - Vital Signs Vital signs: Vital Signs Temp 98.2 F 12/28/17 12:00 Pulse 76 03/27/18 12:00 Resp 19 12/28/17 12:00 BP 116/54 12/19/17 10:00 Pulse Ox 98 12/28/17 12:00 Intake & Output 12/27/17 12/28/17 12/28/17 18:59 06:59 18:59 Intake Total 298 519 215 Output Total 1340 1118 1050 [facility] -[phone] Weight 109.1 kg 106 kg Intake: IV 246 519 215 Albumin Human 25% 50 ml 50 In Empty Bag 1 bag @ 100 mls/hr IVPB ONCE ONE Rx#: [id number] Dextrose 5%-0.45% NaCl 1, 110 130 50 000 ml @ 10 mls/hr IV . Q24H [facility] Rx#:[id number] Fluconazole in NaCl,Iso- 100 100 Osm 200 mg In Saline 1 100ml.bag @ 100 mls/hr IVPB DAILY [facility] Rx#: [id number] Potassium Chloride 10 meq 100 In Sodium Chloride 0.9% 100 ml @ 100 mls/hr IV Q1H [facility] Rx#:[id number] Pressure Bag 36 39 15 Vancomycin 1,500 mg In 250 Sodium Chloride 0.9% 250 ml @ 125 mls/hr IVPB Q24H [facility] Rx#:[id number] Tube Feeding 52 Output: Drainage 590 690 530 Medial Abdomen 120 Medial Chest Incision - 100 Woundvac Right Abdomen 470 690 430 Urine 750 428 520 Other: Voiding Method Indwelling Catheter Indwelling Catheter Indwelling Catheter # Bowel Movements 1 ABP, PAP, CO, CI - Last Documented Arterial Blood Pressure 130/58 Pulmonary Artery Pressure 38/33 Cardiac Output 5.8 Cardiac Index 2.9 - Constitutional General appearance: Present: cooperative, no acute distress, obese - EENT ENT: Present: hearing grossly normal - Neck Details: No JVD, no lymphadenopathy, neck is supple. - Respiratory Details: Lungs sounds essentially clear throughout with few scattered rhonchi, diminished bilateral bases. Respirations are symmetrical and nonlabored with mechanical ventilator support. Tracheostomy midline and secured with sutures in place. Current ventilator settings are as follows: Assist control 20, TV 400 , FiO2 35%, PEEP 5. Current oxygen saturation 95%. - Cardiovascular Details: Regular rhythm and rate. S1 and S2 present, negative for S3, gallop or murmur. Chest with open wound, postoperative muscle flap with VAC dressing in place. Bedside telemetry showing normal sinus rhythm heart rate 77. Anasarca with weeping. Knee-high sequential compression devices and Vance wraps from her toes to her thighs in place were bilateral lower extremities. Right brachial arterial line in place and functioning, left brachial PICC line in place and functioning. - Gastrointestinal Gastrointestinal Comment(s): Abdomen is soft, nontender, and distended. Active tympanic L sounds present in all 4 abdominal quadrants. Right nare Dobbhoff tube in place and to low intermittent wall suction. No guarding or rigidity. Tube feedings remain on hold at this time. - Genitourinary Genitourinary Comment(s): Mason catheter for accurate I&O. Draining clear yellow urine. 250 mL output in the last 8 hours. - Integumentary Integumentary Comment(s): Skin is warm and dry. No clubbing or cyanosis. Anasarca with scattered areas of blistering and weeping and serous drainage. Pressure ulcerations to her buttocks with local wound care. Ulcerations to her right wrist area with dressing in place with scant serous drainage. VAC dressing in place to her chest wound with scant serous drainage. HENRI drain in place to her right lower abdomen draining copious thin serous drainage with almost 1.2 L of drainage in the last 24 hours. - Neurologic Neurologic: Present: CNII-XII intact - Musculoskeletal Musculoskeletal: Present: generalized weakness, strength equal bilaterally - Psychiatric Psychiatric Comment(s): Flat affect. Psychiatric: Present: intact judgment & insight - Allied health notes Allied health notes reviewed: nursing - Labs CBC & Chem 7: 12/28/17 04:30 12/28/17 04:30 Labs: Abnormal Lab Results - Last 24 Hours (Table) 12/27/17 12/27/17 12/27/17 Range/Units 04:42 05:10 12:58 RBC (3.80-5.40) m/uL Hgb (11.4-16.0) gm/dL Hct (34.0-46.0) % MCHC (31.0-37.0) g/dL RDW (11.5-15.5) % ABG pCO2 57 H (35-45) mmHg ABG HCO3 32 H (21-25) mmol/L ABG Total CO2 34 H (19-24) mmol/L ABG O2 Saturation 99.0 H (94-97) % Sodium (137-145) mmol/L Carbon Dioxide (22-30) mmol/L BUN (7-17) mg/dL POC Glucose (mg/dL) 113 H (75-99) mg/dL AST (14-36) U/L Total Protein (6.3-8.2) g/dL Albumin (3.5-5.0) g/dL Prealbumin 7.0 L (18.0-42.0) mg/dL 12/28/17 12/28/17 12/28/17 Range/Units 04:30 04:30 05:20 RBC 2.65 L (3.80-5.40) m/uL Hgb 7.0 L* (11.4-16.0) gm/dL Hct 23.4 L (34.0-46.0) % MCHC 29.8 L (31.0-37.0) g/dL RDW 19.4 H (11.5-15.5) % ABG pCO2 54 H (35-45) mmHg ABG HCO3 33 H (21-25) mmol/L ABG Total CO2 34 H (19-24) mmol/L ABG O2 Saturation 98.2 H (94-97) % Sodium 146 H (137-145) mmol/L Carbon Dioxide 32 H (22-30) mmol/L BUN 44 H (7-17) mg/dL POC Glucose (mg/dL) (75-99) mg/dL AST 44 H (14-36) U/L Total Protein 5.5 L (6.3-8.2) g/dL Albumin 2.5 L (3.5-5.0) g/dL Prealbumin (18.0-42.0) mg/dL Microbiology - Last 24 Hours (Table) 12/15/17 10:40 Acid Fast Bacilli Smear - Final Bronchial Washings - Left Acid Fast Bacilli Culture - Preliminary 12/10/17 10:50 Acid Fast Bacilli Smear - Final Chest Acid Fast Bacilli Culture - Preliminary 12/10/17 10:45 Acid Fast Bacilli Smear - Final Chest Acid Fast Bacilli Culture - Preliminary 12/10/17 10:40 Fungal Culture - Preliminary Chest 12/10/17 10:45 Fungal Culture - Preliminary Chest 12/10/17 10:50 Fungal Culture - Preliminary Chest - Imaging and Cardiology Chest x-ray: report reviewed, image reviewed Assessment and Plan (1) Acute blood loss as cause of postoperative anemia Current Visit: Yes Status: Acute Code(s): D62 - ACUTE POSTHEMORRHAGIC ANEMIA SNOMED Code(s): 03115169307680091 (2) CAD (coronary artery disease) Current Visit: Yes Status: Chronic Code(s): I25.10 - ATHSCL HEART DISEASE OF [place] CORONARY ARTERY W/O ANG PCTRS SNOMED Code(s): 05524633 (3) Family history of coronary artery disease Current Visit: Yes Status: Chronic Code(s): Z82.49 - FAMILY HX OF ISCHEM HEART DIS AND OTH DIS OF THE CIRC SYS SNOMED Code(s): 429814403 (4) Hyperlipidemia Current Visit: Yes Status: Chronic Code(s): E78.5 - HYPERLIPIDEMIA, UNSPECIFIED SNOMED Code(s): 10434767 (5) Hypertension Current Visit: Yes Status: Chronic Code(s): I10 - ESSENTIAL (PRIMARY) HYPERTENSION SNOMED Code(s): 31251647 (6) Severe mitral regurgitation Current Visit: Yes Status: Chronic Code(s): I34.0 - NONRHEUMATIC MITRAL ( VALVE) INSUFFICIENCY SNOMED Code(s): 33435835 (7) Stenosis of left subclavian artery Current Visit: Yes Status: Chronic Code(s): I77.1 - STRICTURE OF ARTERY SNOMED Code(s): 23423123846577825 (8) PAD (peripheral artery disease) Current Visit: No Status: Acute Code(s): I73.9 - PERIPHERAL VASCULAR DISEASE , UNSPECIFIED SNOMED Code(s): 331043210 (9) History of GI bleed Current Visit: No Status: Resolved Code(s): Z87.19 - PERSONAL HISTORY OF OTHER DISEASES OF THE DIGESTIVE SYSTEM SNOMED Code(s): 029915525 (10) Paroxysmal atrial fibrillation Current Visit: No Status: Resolved Code(s): I48.0 - PAROXYSMAL ATRIAL FIBRILLATION SNOMED Code(s): 089673632 (11) Elevated aspartate aminotransferase level Current Visit: Yes Status: Acute Code(s): R74.0 - NONSPEC ELEV OF LEVELS OF TRANSAMNS & LACTIC ACID DEHYDRGNSE SNOMED Code(s): 599848107 Plan: 1. Continue low-dose aspirin, statin, subcutaneous heparin, beta krunal. Will increase beta krunal therapy as tolerated. 2. Continue amiodarone to 200 mg daily per Dobbhoff daily for history of paroxysmal atrial fibrillation on home amiodarone. 3. Pulmonary and ventilator management per Dr. Ledbetter's recommendations. 4. Continue meropenem, vancomycin and Diflucan per Dr. Olivera management 5. Hold tube feedings for now per Dr. Ledbetter. Flat plate abdominal x-ray ordered for re-evaluation. 6. Will monitor labs, chest x-rays daily. 7. Bronchodilators per pulmonology management. 8. Continue VAC dressing to her chest wound. Place Adaptic down over Integra dressing, placed black granuafoam, placed a wound VAC drainage system if possible 100 mmHg, medium intensity and continuous setting. Change VAC dressing Wednesdays and Fridays. Also per Dr. Galindo no contraindication for PEG tube placement if needed. 9. GI/DVT prophylaxis. 10. Consult general surgery assessment for ileus. 11. Albumin 25% followed by Lasix 40 mg IV 1 today. 12. Continue Mason catheter for accurate I&O. 13. Reglan 10 continue mg IV every 6 hours. 14. More recommendations as patient progresses in her care. Time with Patient: Greater than 30
[2017-12-28] MEDS ORDERED: DRY MOUTH SPRAY 44.3 SPRAY/44.3 ML SPRAY MUCOUS MEM PRN (14:22)
--- NOTE | 2017-12-28 17:21 | P.PN ---
Subjective Progress Note Date: 12/28/17 Progress note being dictated for Dr. Middleton. Interval history: This is 67-year-old female status post CABG, mitral valve replacement, status post multiple blood products transfusions. Remains vent dependent on 40% FiO2/+5 of PEEP. Chest x-ray reporting fluid overload, improvement in volume status, aeration.Maintained on norepinephrine, Primacor, dopamine and insulin drip. Cardiac index 2.7. Telemetry atrial flutter/sinus tach. Tube feeding initiated via OG tube. Hemoglobin 7.3, Platelets decreased to 64 today, maintained on low-dose aspirin. Review systems unable to obtain as patient sedated and on mechanical ventilation. Active Medications Albuterol/Ipratropium (Duoneb 0.5 Mg-3 Mg/3 Ml Soln) 3 ml INHALATION RT-Q4H [facility] Last Admin: 11/29/17 15:17 Dose: 3 ml Albuterol/Ipratropium (Duoneb 0.5 Mg-3 Mg/3 Ml Soln) 3 ml INHALATION RT-Q2H PRN PRN Reason: Shortness Of Breath Or Wheezing Amiodarone HCl (Cordarone) 200 mg PO BID [facility] Aspirin (Aspirin) 81 mg PO DAILY [facility] Last Admin: 11/29/17 08:54 Dose: 81 mg Atorvastatin Calcium (Lipitor) 40 mg PO DAILY [facility] Last Admin: 11/29/17 08:54 Dose: 40 mg Benzocaine/Menthol (Cepacol Lozenge) 1 each MUCOUS MEM Q2H PRN PRN Reason: Sore Throat Bisacodyl (Dulcolax) 10 mg RECTAL DAILY PRN PRN Reason: Constipation Chlorhexidine Gluconate (Peridex) 15 ml MUCOUS MEM BID [facility] Last Admin: 11/29/17 08:48 Dose: 15 ml Furosemide (Lasix) 40 mg IV ONCE ONE Stop: 11/29/17 20:01 Propofol 1,000 mg/ IV Solution 100 mls @ 0 mls/hr IV .Q0M [facility]; Titrate PRN Reason: Protocol Last Admin: 11/29/17 17:54 Dose: 26.13 mcg/kg/min, 17.2 mls/hr Norepinephrine Bitartrate (Levophed-0.9% Nacl 16 Mg/250ml Pmx) 16 mg in 250 mls @ 0 mls/hr IV .Q0M [facility]; Titrate PRN Reason: Protocol Last Admin: 11/29/17 17:54 Dose: 2 mcg/min, 1.875 mls/hr Sodium Chloride (Saline 0.45%) 1,000 mls @ 30 mls/hr IV .Q24H [facility] Last Admin: 11/29/17 10:28 Dose: Not Given Milrinone Lactate/Dextrose 20 (mg/ IV Solution) 100 mls @ 6.58 mls/hr IV .[id number] [facility] PRN Reason: 0.2 MCG/KG/MIN Last Admin: 11/29/17 15:38 Dose: 0.2 mcg/kg/min, 6.58 mls/hr Insulin Aspart (Novolog) 0 unit SQ Q6HR [facility] PRN Reason: Protocol Last Admin: 11/29/17 12:36 Dose: Not Given Magnesium Hydroxide (Milk Of Magnesia) 2,400 mg PO BID PRN PRN Reason: Constipation Metoprolol Tartrate (Lopressor) 12.5 mg PO BID [facility] Last Admin: 11/29/17 08:55 Dose: 12.5 mg Miscellaneous Information (Magnesium Per Protocol) 1 each MISCELLANE DAILY PRN ; Protocol PRN Reason: Per Protocol Miscellaneous Information (Phosphorus Per Protocol) 1 each MISCELLANE DAILY PRN ; Protocol PRN Reason: Per Protocol Miscellaneous Information (Potassium Per Protocol) 1 each MISCELLANE DAILY PRN ; Protocol PRN Reason: Per Protocol Miscellaneous Information (Potassium Per Protocol) 1 each MISCELLANE DAILY PRN ; Protocol PRN Reason: Per Protocol Morphine Sulfate (Morphine Oral Dana 2mg/Ml) 6 mg PO Q2H PRN PRN Reason: Severe Pain Ondansetron HCl (Zofran) 4 mg IVP Q6HR PRN PRN Reason: Nausea And Vomiting Pantoprazole Sodium (Protonix) 40 mg IVP DAILY [facility] Last Admin: 11/29/17 08:55 Dose: 40 mg Senna/Docusate Sodium (Senokot-S) 2 each PO HS [facility] Last Admin: 11/28/17 20:41 Dose: 2 each Sodium Chloride (Saline Flush) 10 ml IV BID [facility] Last Admin: 11/29/17 08:56 Dose: 10 ml 11/30/2017 Chest x-ray reporting increased congestion, received additional Lasix. extubated this morning, currently maintained on BiPAP. Norepinephrine weaned off this morning. Maintained on Primacor, cardiac index 2.6. Received 1 dose of Lasix IV push. Renal function improving. Hemoglobin 7, platelets increased to 74. Atrial flutter per telemetry. Review systems unable to obtain as patient BiPAP dependent. Active Medications Generic Name Dose Route Start Last Admin Trade Name Freq PRN Reason Stop Dose Admin Albuterol/Ipratropium 3 ml 11/25/17 20:00 11/30/17 15:23 Duoneb 0.5 Mg-3 Mg/3 Ml Soln INHALATION 3 ml RT-Q4H [facility] Administration Albuterol/Ipratropium 3 ml 11/26/17 17:53 Duoneb 0.5 Mg-3 Mg/3 Ml Soln INHALATION RT-Q2H PRN Shortness Of Breath Or Wheezing Amiodarone HCl 200 mg 11/29/17 21:00 11/30/17 08:14 Cordarone PO 200 mg BID [facility] Administration Aspirin 81 mg 11/26/17 10:15 11/30/17 08:15 Aspirin PO 81 mg DAILY [facility] Administration Atorvastatin Calcium 40 mg 11/26/17 09:00 11/30/17 08:14 Lipitor PO 40 mg DAILY [facility] Administration Benzocaine/Menthol 1 each 11/25/17 19:03 Cepacol Lozenge MUCOUS MEM Q2H PRN Sore Throat Bisacodyl 10 mg 11/26/17 17:52 Dulcolax RECTAL DAILY PRN Constipation Fondaparinux 2.5 mg 11/30/17 11:30 11/30/17 13:23 Arixtra SQ 2.5 mg DAILY [facility] Administration Norepinephrine Bitartrate 16 mg in 250 mls @ 0 mls/hr 11/26/17 04:15 11:58 Levophed-0.9% Nacl 16 Mg/250ml Pmx IV 0 mcg/min .Q0M [facility] 0 mls/hr Protocol Titration Titrate Sodium Chloride 1,000 mls @ 10 mls/hr 11/26/17 10:15 11/30/17 12:51 Saline 0.45% IV Not Given .Q24H [facility] Milrinone Lactate/Dextrose 20 100 mls @ 6.58 mls/hr 11/29/17 15:00 11/30/17 08:16 mg/ IV Solution IV 0.2 mcg/kg/min .[id number] [facility] 6.58 mls/hr 0.2 MCG/KG/MIN Infusion Insulin Aspart 0 unit 11/29/17 12:00 11/30/17 12:50 Novolog SQ Not Given Q6HR [facility] Protocol Magnesium Hydroxide 2,400 mg 11/26/17 17:53 Milk Of Magnesia PO BID PRN Constipation Metoprolol Tartrate 12.5 mg 11/26/17 09:00 11/30/17 08:15 Lopressor PO 12.5 mg BID [facility] Administration Miscellaneous Information 1 each 11/25/17 19:03 Magnesium Per Protocol MISCELLANE DAILY PRN Per Protocol Protocol Miscellaneous Information 1 each 11/25/17 19:03 Phosphorus Per Protocol MISCELLANE DAILY PRN Per Protocol Protocol Miscellaneous Information 1 each 11/25/17 19:03 Potassium Per Protocol MISCELLANE DAILY PRN Per Protocol Protocol Miscellaneous Information 1 each 11/29/17 12:01 Potassium Per Protocol MISCELLANE DAILY PRN Per Protocol Protocol Morphine Sulfate 6 mg 11/29/17 13:31 Morphine Oral Dana 2mg/Ml PO Q2H PRN Severe Pain Ondansetron HCl 4 mg 11/25/17 19:03 Zofran IVP Q6HR PRN Nausea And Vomiting Pantoprazole Sodium 40 mg 11/26/17 09:00 11/30/17 08:15 Protonix IVP 40 mg DAILY [facility] Administration Senna/Docusate Sodium 2 each 11/26/17 21:00 11/29/17 20:40 Senokot-S PO 2 each HS [facility] Administration Sodium Chloride 10 ml 11/25/17 21:00 11/30/17 08:15 Saline Flush IV 10 ml BID [facility] Administration 12/01/2017 Breathing improving, weaned off of BiPAP and down to 6 L high flow. Wheezing resolved. Chest x-ray reports improvement. Staff reports patient appeared to be choking on pills last night, speech therapy consulted. Receiving one unit of packed RBCs for hemoglobin of 6.7. Mediastinal chest tubes discontinued, left pleural chest tube remains. Maintained on Primacor. Telemetry atrial flutter. Review of systems: CONSTITUTIONAL: No fever, no malaise HEENT: No recent visual problems or hearing problems. Denied any sore throat. CARDIOVASCULAR: No chest pain, no palpitations, no syncope. PULMONARY: Improving shortness of breath, no cough, no hemoptysis. GASTROINTESTINAL: No diarrhea, no nausea, no vomiting, no abdominal pain. Normoactive bowel sounds. NEUROLOGICAL: No headaches, diffuse weakness, no numbness. HEMATOLOGICAL: Denies any bleeding or petechiae. GENITOURINARY: Denies any burning micturition, frequency, or urgency. ENDOCRINE: Denies any polyuria or polydipsia. PSYCHIATRIC: No anxiety, no depression Active Medications Hydrocodone Bitart/Acetaminophen ([place] 5-325) 1 each PO Q4HR PRN PRN Reason: MILD TO MODERATE Pain Last Admin: 12/01/17 22:44 Dose: 1 each Hydrocodone Bitart/Acetaminophen ([place] 5-325) 2 each PO Q4HR PRN PRN Reason: MODERATE TO SEVERE Pain Albuterol/Ipratropium (Duoneb 0.5 Mg-3 Mg/3 Ml Soln) 3 ml INHALATION RT-Q4H [facility] Last Admin: 12/02/17 15:06 Dose: 3 ml Albuterol/Ipratropium (Duoneb 0.5 Mg-3 Mg/3 Ml Soln) 3 ml INHALATION RT-Q2H PRN PRN Reason: Shortness Of Breath Or Wheezing Last Admin: 12/01/17 18:09 Dose: 3 ml Amiodarone HCl (Cordarone) 200 mg PO BID [facility] Last Admin: 12/02/17 08:10 Dose: 200 mg Aspirin (Aspirin) 81 mg PO DAILY [facility] Last Admin: 12/02/17 08:10 Dose: 81 mg Atorvastatin Calcium (Lipitor) 40 mg PO DAILY [facility] Last Admin: 12/02/17 08:10 Dose: 40 mg Benzocaine/Menthol (Cepacol Lozenge) 1 each MUCOUS MEM Q2H PRN PRN Reason: Sore Throat Bisacodyl (Dulcolax) 10 mg RECTAL DAILY PRN PRN Reason: Constipation Budesonide (Pulmicort) 1 mg INHALATION RT-BID [facility] Last Admin: 12/02/17 07:19 Dose: 1 mg Fondaparinux (Arixtra) 2.5 mg SQ DAILY [facility] Last Admin: 12/02/17 08:10 Dose: 2.5 mg Formoterol Fumarate (Perforomist) 20 mcg INHALATION RT-BID [facility] Last Admin: 12/02/17 07:36 Dose: 20 mcg Norepinephrine Bitartrate (Levophed-0.9% Nacl 16 Mg/250ml Pmx) 16 mg in 250 mls @ 0 mls/hr IV .Q0M [facility]; Titrate PRN Reason: Protocol Last Titration: 11/30/17 11:58 Dose: 0 mcg/min, 0 mls/hr Sodium Chloride (Saline 0.45%) 1,000 mls @ 10 mls/hr IV .Q24H [facility] Last Admin: 12/01/17 14:04 Dose: 10 mls/hr Milrinone Lactate/Dextrose 20 (mg/ IV Solution) 100 mls @ 6.58 mls/hr IV .[id number] [facility] PRN Reason: 0.2 MCG/KG/MIN Last Admin: 12/02/17 08:57 Dose: 0.2 mcg/kg/min, 6.58 mls/hr Insulin Aspart (Novolog) 0 unit SQ Q6HR [facility] PRN Reason: Protocol Last Admin: 12/02/17 12:53 Dose: Not Given Magnesium Hydroxide (Milk Of Magnesia) 2,400 mg PO BID PRN PRN Reason: Constipation Methylprednisolone Sodium Succinate (Solu-Medrol) 30 mg IV Q8HR [facility] Last Admin: 12/02/17 08:10 Dose: 30 mg Metoprolol Tartrate (Lopressor) 25 mg PO BID [facility] Last Admin: 12/02/17 08:59 Dose: 25 mg Miscellaneous Information (Magnesium Per Protocol) 1 each MISCELLANE DAILY PRN ; Protocol PRN Reason: Per Protocol Miscellaneous Information (Phosphorus Per Protocol) 1 each MISCELLANE DAILY PRN ; Protocol PRN Reason: Per Protocol Miscellaneous Information (Potassium Per Protocol) 1 each MISCELLANE DAILY PRN ; Protocol PRN Reason: Per Protocol Miscellaneous Information (Potassium Per Protocol) 1 each MISCELLANE DAILY PRN ; Protocol PRN Reason: Per Protocol Ondansetron HCl (Zofran) 4 mg IVP Q6HR PRN PRN Reason: Nausea And Vomiting Pantoprazole Sodium (Protonix) 40 mg IVP DAILY [facility] Last Admin: 12/02/17 08:10 Dose: 40 mg Senna/Docusate Sodium (Senokot-S) 2 each PO HS [facility] Last Admin: 12/01/17 21:55 Dose: 2 each Sodium Chloride (Saline Flush) 10 ml IV BID [facility] Last Admin: 12/02/17 12:51 Dose: 10 ml 12/02/17 Much more alert today. Oxygen weaned further down to 5 L nasal cannula, maintaining O2 sats in the high 90s. Pleural chest tube discontinued. Chest x- ray reporting probable right lower lobe atelectasis/effusion. Underwent modified barium swallow, with recommendations of regular diet, thin liquids, chin tuck, no straw, small bites/sepsis/sips; no impairment with exception of mild transient penetration with thin liquids which patient independently cleared. Yesterday receive 1 unit of packed RBCs with current hemoglobin 8. Weaning of Primacor in progress. 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 Review of systems: CONSTITUTIONAL: No fever, no malaise, no fatigue. HEENT: No recent visual problems or hearing problems. Denied any sore throat. CARDIOVASCULAR: No chest pain, no palpitations, no syncope. PULMONARY: Minimal shortness of breath, no cough, no hemoptysis. GASTROINTESTINAL: No diarrhea, no nausea, no vomiting, no abdominal pain. Normoactive bowel sounds. NEUROLOGICAL: No headaches, no weakness, no numbness. HEMATOLOGICAL: Denies any bleeding or petechiae. GENITOURINARY: Denies any burning micturition, frequency, or urgency. MUSCULOSKELETAL/RHEUMATOLOGICAL: Denies any joint pain, swelling, or any muscle pain. ENDOCRINE: Denies any polyuria or polydipsia. PSYCHIATRIC: No anxiety, no depression The rest of the 14 point review of systems is negative Active Medications Generic Name Dose Route Start Last Admin Trade Name Freq PRN Reason Stop Dose Admin Hydrocodone Bitart/Acetaminophen 1 each 12/01/17 12:20 12/01/17 22:44 [place] 5-325 PO 1 each Q4HR PRN Administration MILD TO MODERATE Pain Hydrocodone Bitart/Acetaminophen 2 each 12/01/17 12:20 [place] 5-325 PO Q4HR PRN MODERATE TO SEVERE Pain Albuterol/Ipratropium 3 ml 11/25/17 20:00 12/02/17 15:06 Duoneb 0.5 Mg-3 Mg/3 Ml Soln INHALATION 3 ml RT-Q4H [facility] Administration Albuterol/Ipratropium 3 ml 11/26/17 17:53 12/01/17 18:09 Duoneb 0.5 Mg-3 Mg/3 Ml Soln INHALATION 3 ml RT-Q2H PRN Administration Shortness Of Breath Or Wheezing Amiodarone HCl 200 mg 11/29/17 21:00 12/02/17 08:10 Cordarone PO 200 mg BID [facility] Administration Aspirin 81 mg 11/26/17 10:15 12/02/17 08:10 Aspirin PO 81 mg DAILY [facility] Administration Atorvastatin Calcium 40 mg 11/26/17 09:00 12/02/17 08:10 Lipitor PO 40 mg DAILY [facility] Administration Benzocaine/Menthol 1 each 11/25/17 19:03 Cepacol Lozenge MUCOUS MEM Q2H PRN Sore Throat Bisacodyl 10 mg 11/26/17 17:52 Dulcolax RECTAL DAILY PRN Constipation Budesonide 1 mg 12/01/17 20:00 12/02/17 07:19 Pulmicort INHALATION 1 mg RT-BID [facility] Administration Fondaparinux 2.5 mg 11/30/17 11:30 12/02/17 08:10 Arixtra SQ 2.5 mg DAILY [facility] Administration Formoterol Fumarate 20 mcg 12/01/17 20:00 12/02/17 07:36 Perforomist INHALATION 20 mcg RT-BID [facility] Administration Norepinephrine Bitartrate 16 mg in 250 mls @ 0 mls/hr 11/26/17 04:15 11:58 Levophed-0.9% Nacl 16 Mg/250ml Pmx IV 0 mcg/min .Q0M [facility] 0 mls/hr Protocol Titration Titrate Sodium Chloride 1,000 mls @ 10 mls/hr 11/26/17 10:15 12/02/17 15:41 Saline 0.45% IV Not Given .Q24H [facility] Milrinone Lactate/Dextrose 20 100 mls @ 6.58 mls/hr 11/29/17 15:00 12/02/17 08:57 mg/ IV Solution IV 0.2 mcg/kg/min .[id number] [facility] 6.58 mls/hr 0.2 MCG/KG/MIN Administration Insulin Aspart 0 unit 11/29/17 12:00 12/02/17 12:53 Novolog SQ Not Given Q6HR [facility] Protocol Magnesium Hydroxide 2,400 mg 11/26/17 17:53 Milk Of Magnesia PO BID PRN Constipation Methylprednisolone Sodium Succinate 30 mg 12/01/17 16:00 12/02/17 08:10 Solu-Medrol IV 30 mg Q8HR [facility] Administration Metoprolol Tartrate 25 mg 12/02/17 09:00 12/02/17 08:59 Lopressor PO 25 mg BID [facility] Administration Miscellaneous Information 1 each 11/25/17 19:03 Magnesium Per Protocol MISCELLANE DAILY PRN Per Protocol Protocol Miscellaneous Information 1 each 11/25/17 19:03 Phosphorus Per Protocol MISCELLANE DAILY PRN Per Protocol Protocol Miscellaneous Information 1 each 11/25/17 19:03 Potassium Per Protocol MISCELLANE DAILY PRN Per Protocol Protocol Miscellaneous Information 1 each 11/29/17 12:01 Potassium Per Protocol MISCELLANE DAILY PRN Per Protocol Protocol Ondansetron HCl 4 mg 11/25/17 19:03 Zofran IVP Q6HR PRN Nausea And Vomiting Pantoprazole Sodium 40 mg 11/26/17 09:00 12/02/17 08:10 Protonix IVP 40 mg DAILY [facility] Administration Senna/Docusate Sodium 2 each 11/26/17 21:00 12/01/17 21:55 Senokot-S PO 2 each HS [facility] Administration Sodium Chloride 10 ml 11/25/17 21:00 12/02/17 12:51 Saline Flush IV 10 ml BID [facility] Administration 12/03/17 maintained on nebulized bronchodilators, steroids,patient tachypneic, requiring BiPap throughout today off and on. Chest x-ray suggestive of fluid overload. Received additional Lasix. Maintained on oral amiodarone, remains in a-flutter. Overdrive atrial pacing attempted unsuccessfully. Digoxin 2 ordered. Pacer wires discontinued today. Stool at bedside with PT OT, remains extremely weak. Primacor weaned off yesterday. 2017 currently in atrial fibrillation with heart rates up into the 150s, scheduled for cardioversion tomorrow. INR 2.2. Patient currently wearing BiPAP ,has required on and off all day. Chest ultrasound reporting bilateral pleural effusions, larger on the right. Thoracentesis on hold, awaiting cardioversion.Chest x-ray reporting prominent interstitium and central vascularity, increased bibasilar density. Attempting diuresing with Lasix and Zaroxolyn. Review systems unable to obtain as patient currently on BiPAP. Active Medications Hydrocodone Bitart/Acetaminophen ([place] 5-325) 1 each PO Q4HR PRN PRN Reason: MILD TO MODERATE Pain Last Admin: 12/07/17 10:48 Dose: 1 each Hydrocodone Bitart/Acetaminophen ([place] 5-325) 2 each PO Q4HR PRN PRN Reason: MODERATE TO SEVERE Pain Last Admin: 12/07/17 16:39 Dose: 2 each Albuterol/Ipratropium (Duoneb 0.5 Mg-3 Mg/3 Ml Soln) 3 ml INHALATION RT-Q2H PRN PRN Reason: Shortness Of Breath Or Wheezing Last Admin: 12/01/17 18:09 Dose: 3 ml Albuterol/Ipratropium (Duoneb 0.5 Mg-3 Mg/3 Ml Soln) 3 ml INHALATION RT-QID [facility] Last Admin: 12/07/17 16:43 Dose: 3 ml Amiodarone HCl (Cordarone) 200 mg PO BID [facility] Aspirin (Aspirin) 81 mg PO DAILY [facility] Last Admin: 12/07/17 08:53 Dose: 81 mg Atorvastatin Calcium (Lipitor) 40 mg PO DAILY [facility] Last Admin: 12/07/17 08:53 Dose: 40 mg Benzocaine/Menthol (Cepacol Lozenge) 1 each MUCOUS MEM Q2H PRN PRN Reason: Sore Throat Bisacodyl (Dulcolax) 10 mg RECTAL DAILY PRN PRN Reason: Constipation Budesonide (Pulmicort) 1 mg INHALATION RT-BID [facility] Last Admin: 12/07/17 08:36 Dose: 1 mg Escitalopram Oxalate (Lexapro) 10 mg PO HS [facility] Furosemide (Lasix) 40 mg IV Q12HR [facility] Last Admin: 12/07/17 08:33 Dose: 40 mg Piperacillin/Tazobactam/ (Dextrose 3.375 gm/ IV Solution) 50 mls @ 12.5 mls/hr IVPB Q8HR [facility] Last Admin: 12/07/17 16:39 Dose: 12.5 mls/hr Sodium Chloride (Saline 0.9%) 1,000 mls @ 20 mls/hr IV .Q24H [facility] Last Admin: 12/07/17 13:00 Dose: 20 mls/hr Lactated Ringer's (Lactated Ringers) 1,000 mls @ 20 mls/hr IV .Q24H [facility] Last Admin: 12/06/17 20:45 Dose: 20 mls/hr Insulin Aspart (Novolog) 0 unit SQ ACHS [facility] PRN Reason: Protocol Last Admin: 12/07/17 13:01 Dose: 2 unit Magnesium Hydroxide (Milk Of Magnesia) 2,400 mg PO BID PRN PRN Reason: Constipation Methylprednisolone Sodium Succinate (Solu-Medrol) 30 mg IV Q8HR [facility] Last Admin: 12/07/17 16:39 Dose: 30 mg Metolazone (Zaroxolyn) 5 mg PO DAILY [facility] Last Admin: 12/07/17 08:53 Dose: 5 mg Metoprolol Tartrate (Lopressor) 50 mg PO BID [facility] Last Admin: 12/07/17 08:53 Dose: 50 mg Miscellaneous Information (Magnesium Per Protocol) 1 each MISCELLANE DAILY PRN ; Protocol PRN Reason: Per Protocol Miscellaneous Information (Phosphorus Per Protocol) 1 each MISCELLANE DAILY PRN ; Protocol PRN Reason: Per Protocol Miscellaneous Information (Potassium Per Protocol) 1 each MISCELLANE DAILY PRN ; Protocol PRN Reason: Per Protocol Ondansetron HCl (Zofran) 4 mg IVP Q6HR PRN PRN Reason: Nausea And Vomiting Pantoprazole Sodium (Protonix) 40 mg PO AC-BRKFST [facility] Last Admin: 12/07/17 08:53 Dose: 40 mg Senna/Docusate Sodium (Senokot-S) 2 each PO HS [facility] Last Admin: 12/06/17 20:29 Dose: 2 each Sodium Chloride (Saline Flush) 10 ml IV BID [facility] Last Admin: 12/07/17 10:48 Dose: 10 ml 12/07/2017 Underwent successful cardioversion this morning,360J X1, remains in sinus rhythm. Currently wearing BiPAP. Nonproductive cough. Diuresing well on Lasix and Zaroxolyn with 24-hour I&O reflecting a negative fluid balance. Chest x-ray reporting stable bilateral areas of infiltrate and pleural effusions , possible CHF, possible pneumonia. INR 3.8, afebrile, WBC 17. Maintained on Zosyn. Sternal wound drainage, cultures sent. 12/08/2017 Cardioverted yesterday, remains in sinus rhythm .continues requiring BiPAP for majority of morning. Echo reporting-limited study for assessment of pericardial effusion, small generalized pericardial effusion, low normal LV function, EF 50-55%. Chest CT reporting sternal dehiscence, moderate to large pericardial effusion, possible mass effect onto the left ventricle, no significant right atrial dilatation to clearly indicate tamponade, moderate left pleural effusion with adjacent complete left lower lobar and inferior lingular collapse, small right pleural effusion, right basilar subsegmental atelectasis. Chest x-ray noted. Blood sugars controlled. INR 4.8, received vitamin K this morning. Diuresing well on Lasix IV push, Zaroxolyn. 24-hour I& O reflecting a negative fluid balance, decreased weight. Midsternal incision open, draining large amount of serosanguineous drainage. Currently maintained on Zosyn. Wound cultures pending. Afebrile. Review systems unable to obtain as patient currently on BiPAP. Active Medications Generic Name Dose Route Start Last Admin Trade Name Freq PRN Reason Stop Dose Admin Hydrocodone Bitart/Acetaminophen 1 each 12/01/17 12:20 12/08/17 06:26 [place] 5-325 PO 1 each Q4HR PRN Administration MILD TO MODERATE Pain Hydrocodone Bitart/Acetaminophen 2 each 12/01/17 12:20 12/08/17 18:41 [place] 5-325 PO 2 each Q4HR PRN Administration MODERATE TO SEVERE Pain Acetazolamide Sodium 250 mg 12/08/17 09:15 12/08/17 11:16 Diamox IV 12/08/17 21:01 250 mg Q12HR [facility] Administration Albuterol/Ipratropium 3 ml 11/26/17 17:53 12/08/17 05:16 Duoneb 0.5 Mg-3 Mg/3 Ml Soln INHALATION 3 ml RT-Q2H PRN Administration Shortness Of Breath Or Wheezing Albuterol/Ipratropium 3 ml 12/03/17 08:00 12/08/17 15:38 Duoneb 0.5 Mg-3 Mg/3 Ml Soln INHALATION 3 ml RT-QID [facility] Administration Amiodarone HCl 200 mg 12/08/17 09:00 12/08/17 08:24 Cordarone PO 200 mg BID [facility] Administration Aspirin 81 mg 11/26/17 10:15 12/08/17 08:24 Aspirin PO 81 mg DAILY [facility] Administration Atorvastatin Calcium 40 mg 11/26/17 09:00 12/08/17 08:25 Lipitor PO 40 mg DAILY [facility] Administration Benzocaine/Menthol 1 each 11/25/17 19:03 Cepacol Lozenge MUCOUS MEM Q2H PRN Sore Throat Bisacodyl 10 mg 11/26/17 17:52 Dulcolax RECTAL DAILY PRN Constipation Budesonide 1 mg 12/01/17 20:00 12/08/17 09:26 Pulmicort INHALATION 1 mg RT-BID [facility] Administration Escitalopram Oxalate 10 mg 12/07/17 21:00 12/07/17 20:10 Lexapro PO 10 mg HS [facility] Administration Piperacillin/Tazobactam/ 50 mls @ 12.5 mls/hr 12/04/17 16:00 12/08/17 16:11 Dextrose 3.375 gm/ IV Solution IVPB 12.5 mls/hr Q8HR [facility] Administration Sodium Chloride 1,000 mls @ 20 mls/hr 12/06/17 10:45 12/08/17 13:47 Saline 0.9% IV Not Given .Q24H [facility] Insulin Aspart 0 unit 12/02/17 21:00 12/08/17 17:46 Novolog SQ 1 unit ACHS [facility] Administration Protocol Magnesium Hydroxide 2,400 mg 11/26/17 17:53 Milk Of Magnesia PO BID PRN Constipation Metoprolol Tartrate 50 mg 12/06/17 21:00 12/08/17 08:24 Lopressor PO 50 mg BID [facility] Administration Miscellaneous Information 1 each 11/25/17 19:03 Magnesium Per Protocol MISCELLANE DAILY PRN Per Protocol Protocol Miscellaneous Information 1 each 11/25/17 19:03 Phosphorus Per Protocol MISCELLANE DAILY PRN Per Protocol Protocol Miscellaneous Information 1 each 11/25/17 19:03 Potassium Per Protocol MISCELLANE DAILY PRN Per Protocol Protocol Ondansetron HCl 4 mg 11/25/17 19:03 Zofran IVP Q6HR PRN Nausea And Vomiting Pantoprazole Sodium 40 mg 12/05/17 07:30 12/08/17 08:25 Protonix PO 40 mg AC-BRKFST [facility] Administration Senna/Docusate Sodium 2 each 11/26/17 21:00 12/07/17 20:16 Senokot-S PO 2 each HS [facility] Administration Sodium Chloride 10 ml 11/25/17 21:00 12/08/17 11:16 Saline Flush IV 10 ml BID CARLEE Administration 12/09/17 Remains in sinus rhythm. mostly BiPAP dependent. Incentive spirometer up to 700 -750. Chest x-ray reporting improving moderate pleural effusion, cardiomegaly. Sternal wound culture positive for gram-negative bacilli. Maintained on Zosyn. Diet intake fair. Blood sugars controlled. Review systems unable to be performed as patient on BiPAP Active Medications Hydrocodone Bitart/Acetaminophen ([place] 5-325) 1 each PO Q4HR PRN PRN Reason: MILD TO MODERATE Pain Last Admin: 12/09/17 10:03 Dose: 1 each Hydrocodone Bitart/Acetaminophen ([place] 5-325) 2 each PO Q4HR PRN PRN Reason: MODERATE TO SEVERE Pain Last Admin: 12/09/17 14:51 Dose: 2 each Albuterol/Ipratropium (Duoneb 0.5 Mg-3 Mg/3 Ml Soln) 3 ml INHALATION RT-Q2H PRN PRN Reason: Shortness Of Breath Or Wheezing Last Admin: 12/08/17 05:16 Dose: 3 ml Albuterol/Ipratropium (Duoneb 0.5 Mg-3 Mg/3 Ml Soln) 3 ml INHALATION RT-QID [facility] Last Admin: 12/09/17 15:42 Dose: 3 ml Amiodarone HCl (Cordarone) 200 mg PO BID [facility] Last Admin: 12/09/17 08:12 Dose: 200 mg Aspirin (Aspirin) 81 mg PO DAILY [facility] Last Admin: 12/09/17 08:13 Dose: 81 mg Atorvastatin Calcium (Lipitor) 40 mg PO DAILY [facility] Last Admin: 12/09/17 08:13 Dose: 40 mg Benzocaine/Menthol (Cepacol Lozenge) 1 each MUCOUS MEM Q2H PRN PRN Reason: Sore Throat Bisacodyl (Dulcolax) 10 mg RECTAL DAILY PRN PRN Reason: Constipation Budesonide (Pulmicort) 1 mg INHALATION RT-BID [facility] Last Admin: 12/09/17 07:45 Dose: 1 mg Escitalopram Oxalate (Lexapro) [address] [facility] Last Admin: 12/08/17 20:33 Dose: 10 mg Piperacillin/Tazobactam/ (Dextrose 3.375 gm/ IV Solution) 50 mls @ 12.5 mls/hr IVPB Q8HR [facility] Last Admin: 12/09/17 08:16 Dose: 12.5 mls/hr Sodium Chloride (Saline 0.9%) 1,000 mls @ 20 mls/hr IV .Q24H [facility] Last Admin: 12/09/17 08:17 Dose: 20 mls/hr Insulin Aspart (Novolog) 0 unit SQ ACHS [facility] PRN Reason: Protocol Last Admin: 12/09/17 12:23 Dose: Not Given Magnesium Hydroxide (Milk Of Magnesia) 2,400 mg PO BID PRN PRN Reason: Constipation Metoprolol Tartrate (Lopressor) 50 mg PO BID [facility] Last Admin: 12/09/17 08:13 Dose: 50 mg Miscellaneous Information (Magnesium Per Protocol) 1 each MISCELLANE DAILY PRN ; Protocol PRN Reason: Per Protocol Miscellaneous Information (Phosphorus Per Protocol) 1 each MISCELLANE DAILY PRN ; Protocol PRN Reason: Per Protocol Miscellaneous Information (Potassium Per Protocol) 1 each MISCELLANE DAILY PRN ; Protocol PRN Reason: Per Protocol Ondansetron HCl (Zofran) 4 mg IVP Q6HR PRN PRN Reason: Nausea And Vomiting Pantoprazole Sodium (Protonix) 40 mg PO AC-BRKFST [facility] Last Admin: 12/09/17 08:11 Dose: 40 mg Senna/Docusate Sodium (Senokot-S) 2 each PO HS [facility] Last Admin: 12/08/17 20:37 Dose: 2 each Sodium Chloride (Saline Flush) 10 ml IV BID [facility] Last Admin: 12/09/17 08:13 Dose: 10 ml 12/13/17 maintained on Merrem and vancomycin. BiPAP dependent. Worsening chest x-ray, chest CT reporting near complete collapse of left lung, enlarging moderate to large pericardial effusion. Echo pending. Multiple episodes of diarrhea. Atrial flutter with RVR, Review systems unable to be performed as patient on BiPAP Active Medications Generic Name Dose Route Start Last Admin Trade Name Freq PRN Reason Stop Dose Admin Hydrocodone Bitart/Acetaminophen 1 each 12/01/17 12:20 12/13/17 08:08 [place] 5-325 PO 1 each Q4HR PRN Administration MILD TO MODERATE Pain Hydrocodone Bitart/Acetaminophen 2 each 12/01/17 12:20 12/13/17 15:08 [place] 5-325 PO 2 each Q4HR PRN Administration MODERATE TO SEVERE Pain Albuterol/Ipratropium 3 ml 11/26/17 17:53 12/08/17 05:16 Duoneb 0.5 Mg-3 Mg/3 Ml Soln INHALATION 3 ml RT-Q2H PRN Administration Shortness Of Breath Or Wheezing Albuterol/Ipratropium 3 ml 12/03/17 08:00 12/13/17 16:02 Duoneb 0.5 Mg-3 Mg/3 Ml Soln INHALATION Not Given RT-QID CARLEE Amiodarone HCl 200 mg 12/11/17 20:00 12/13/17 09:12 Cordarone PO 200 mg BID@0800,2000 CARLEE Administration Aspirin 81 mg 11/26/17 10:15 12/13/17 09:13 Aspirin PO 81 mg DAILY CARLEE Administration Atorvastatin Calcium 40 mg 11/26/17 09:00 12/13/17 09:13 Lipitor PO 40 mg DAILY CARLEE Administration Benzocaine/Menthol 1 each 11/25/17 19:03 Cepacol Lozenge MUCOUS MEM Q2H PRN Sore Throat Bisacodyl 10 mg 11/26/17 17:52 12/12/17 17:45 Dulcolax RECTAL 10 mg DAILY PRN Administration Constipation Budesonide 1 mg 12/01/17 20:00 12/13/17 07:46 Pulmicort INHALATION 1 mg RT-BID CARLEE Administration Escitalopram Oxalate 10 mg 12/07/17 21:00 12/12/17 20:16 Lexapro PO 10 mg HS CARLEE Administration Heparin Sodium (Porcine) 5,000 unit 12/10/17 16:00 12/13/17 09:14 Heparin SQ 5,000 unit Q8HR CARLEE Administration Sodium Chloride 1,000 mls @ 20 mls/hr 12/06/17 10:45 12/13/17 09:49 Saline 0.9% IV 20 mls/hr .Q24H CARLEE Administration Meropenem 1 gm/ Sodium 100 mls @ 100 mls/hr 12/09/17 22:00 12/13/17 09:46 Chloride IVPB 100 mls/hr Q8HR CARLEE Administration Vancomycin HCl 1,750 mg/ 250 mls @ 125 mls/hr 12/13/17 14:00 12/13/17 14:15 Sodium Chloride IVPB 125 mls/hr Q12HR@0000,1200 CARLEE Administration Insulin Aspart 0 unit 12/02/17 21:00 12/13/17 12:34 Novolog SQ Not Given ACHS [facility] Protocol Lactobacillus Acidoph/Bulgaricus 1 each 12/13/17 16:00 Lactinex PO TID CARLEE Magnesium Hydroxide 2,400 mg 11/26/17 17:53 Milk Of Magnesia PO BID PRN Constipation Metoprolol Tartrate 50 mg 12/11/17 22:00 12/13/17 09:13 Lopressor PO 50 mg BID@1000,2200 CARLEE Administration Miscellaneous Information 1 each 11/25/17 19:03 Magnesium Per Protocol MISCELLANE DAILY PRN Per Protocol Protocol Miscellaneous Information 1 each 11/25/17 19:03 Phosphorus Per Protocol MISCELLANE DAILY PRN Per Protocol Protocol Miscellaneous Information 1 each 11/25/17 19:03 Potassium Per Protocol MISCELLANE DAILY PRN Per Protocol Protocol Ondansetron HCl 4 mg 11/25/17 19:03 Zofran IVP Q6HR PRN Nausea And Vomiting Pantoprazole Sodium 40 mg 12/05/17 07:30 12/13/17 09:13 Protonix PO 40 mg AC-BRKFST CARLEE Administration Senna/Docusate Sodium 2 each 11/26/17 21:00 12/12/17 20:16 Senokot-S PO 2 each HS CARLEE Administration Sodium Chloride 10 ml 11/25/17 21:00 12/13/17 09:49 Saline Flush IV 10 ml BID CARLEE Administration 12/14/17 maintained on Merrem and vancomycin per infectious disease .remains BiPAP dependent. Chest x-ray reporting persistent significant left lung collapse with minimal improvement. Scheduled for bronchoscopy this afternoon. INR 2.1, receiving FFP. No diarrhea today. Telemetry atrial fibrillation/ flutter, heart rate 110s to 120s. 12/15/2017 developed worsened respiratory distress despite BiPAP, diuretics, antiarrhythmics, intubated last night. Received 2 more units of FFP this morning, underwent bronchoscopy this morning; mucous plug discovered in the left lower lobe. Pleural Cultures pending. Maintained on FiO2 45%/+5 of PEEP. Continues on IV antibiotics. Currently on 2-1/2 mics of Levophed and diprovan drips. Atrial tachycardia, heart rate in the 130s. Amiodarone discontinued as per cardiology. Developed increased bleeding from wound VAC with turning during bath-Anticoagulation placed on hold. Afebrile. 12/16/17 remains vent dependent, FiO2 40%/+5 of PEEP. Sedated on Diprovan. Requiring low-dose of Levophed. Marginal urine output, received albumin last night. Tachycardia resolved, sinus rhythm per telemetry. Wound VAC dressing changed today, serosanguineous drainage. Bronchoscopy yesterday, cultures pending. Blood sugars controlled. 12/17/2017 today weaning trials of pressure support in increments of 3 hours , resting at night, FiO2 40%/+5 of PEEP. Chest x-ray reporting improvement. Currently on Levophed. Tolerating tube feeds at goal with minimal to no residual. Maintained on IV antibiotics as per infectious disease. Telemetry sinus rhythm. 12/20/17 remains vent dependent FiO2 40%/PEEP of 5. Yesterday vent weaning during the day hours, tolerated well. Wound VAC changed yesterday. Scheduled for sternal flap repair tomorrow. Maintained on IV antibiotics. T-max 99.4. Last night returned into rapid atrial flutter, Currently sinus rhythm. 12/21/2017 remains vent dependent. Telemetry sinus rhythm. Tube feeds on hold. Scheduled for sternal flap repair today. 12/22/2017 underwent flap repair/grafting yesterday with plastic surgeon. Pain controlled. Extubated this morning, maintained on BiPAP. Telemetry sinus rhythm. Albumin remains at 2.2, receiving albumin. 12/23/17 .Patient respiratory arrested while Dobbhoff attempting to be placed, returned into atrial fibrillation with RVR. Reintubated, converted back into sinus rhythm. Midsternal dressing being changed at bedside by cardiothoracic surgery. Trach and PEG being discussed as per pulmonary. 12/24/17 scheduled for tracheostomy this morning. Chest x-ray reporting progressive CHF change with bilateral effusions possible underlying pneumonia, ET tube 1 cm above osvaldo. Telemetry sinus rhythm. Levophed currently on hold. 12/27/2017 Dobbhoff recently placed, developed nausea vomiting throughout the night. Abdomen distended, tympanic.Tube feeds placed on hold, flat plate of abdomen pending. PEG tube being discussed. Passing loose stools. Denies abdominal pain .Telemetry sinus rhythm. Maintained on FiO2 35%/+ of PEEP. Tolerated CPAP for 3 hours yesterday. Yesterday and today patient received Lasix IV push, diuresed well with 24-hour I&O reflecting a negative fluid balance. Chest x-ray reporting similar findings. T-max 99.2. 12/28/2017 maintained on IV antibiotics, significant wound drainage. Afebrile. remains vent dependent, FiO2 35%/+5 of PEEP. Chest x-ray stable. Yesterday abdominal x-ray reported possible underlying ileus, obstruction. Dobbhoff tube feeds placed on hold. Follow-up Abdominal x-ray this morning reporting markedly dilated small bowel loops ,severe postoperative ileus with partial obstruction. Abdomen distended. Weaning parameters suboptimal ,no weaning trials today as per pulmonary. Hemoglobin 7.anasarca, weeping .receiving Albumin , Lasix IV push 1. Objective - Vital Signs Vital signs: Vital Signs Temp 98.4 F 12/28/17 16:00 Pulse 82 12/28/17 16:00 Resp 22 12/28/17 16:00 BP 116/54 12/19/17 10:00 Pulse Ox 99 12/28/17 16:00 Intake & Output 12/27/17 12/28/17 12/28/17 18:59 06:59 18:59 Intake Total 298 519 267 Output Total 1340 1118 1525 Balance -1042 -599 -7728 Weight 109.1 kg 106 kg Intake: IV 246 519 267 Albumin Human 25% 50 ml 50 In Empty Bag 1 bag @ 100 mls/hr IVPB ONCE ONE Rx#: [id number] Dextrose 5%-0.45% NaCl 1, 110 130 90 000 ml @ 10 mls/hr IV . Q24H CARLEE Rx#:[id number] Fluconazole in NaCl,Iso- 100 100 Osm 200 mg In Saline 1 100ml.bag @ 100 mls/hr IVPB DAILY CARLEE Rx#: [id number] Potassium Chloride 10 meq 100 In Sodium Chloride 0.9% 100 ml @ 100 mls/hr IV Q1H CARLEE Rx#:[id number] Pressure Bag 36 39 27 Vancomycin 1,500 mg In 250 Sodium Chloride 0.9% 250 ml @ 125 mls/hr IVPB Q24H [facility]LEE Rx#:[id number] Tube Feeding 52 Output: Drainage 590 690 580 Medial Abdomen 120 Medial Chest Incision - 100 Woundvac Right Abdomen 470 690 480 Urine 750 428 945 Other: Voiding Method Indwelling Catheter Indwelling Catheter Indwelling Catheter # Bowel Movements 1 ABP, PAP, CO, CI - Last Documented Arterial Blood Pressure 163/67 Pulmonary Artery Pressure 38/33 Cardiac Output 5.8 Cardiac Index 2.9 - Exam PHYSICAL EXAM: VITAL SIGNS: As above GENERAL: Sitting up in bed, on mechanical ventilation, alert and appears oriented HEENT: Conjunctivae normal. eyes normal. Dobbhoff connected to suction- bilious drainage. NECK: No JVD. Tracheostomy tube present CARDIOVASCULAR: S1, S2 muffled , no gallops, no murmurs RESPIRATION: Breath sounds diminished in the bases,coarse. Sternal wound dressing present. ABDOMEN: Distended, tympanic, right-sided abdominal dressing clean dry and intact with HENRI- serous drainage, hypoactive bowel sounds Extremities: Positive edema, anasarca-weeping PSYCHIATRY:/NERVOUS SYSTEM: Unable to assess as patient on mechanical ventilation, Skin: Midsternal dressing clean dry and intact, right medial buttock & right buttock optifoam dressing intact, right wrist area ulcerations-dressing clean dry and intact Microbiology 12/15/17 10:40 Bronchial Washings - Left Acid Fast Bacilli Smear - Final 12/15/17 10:40 Bronchial Washings - Left Acid Fast Bacilli Culture - Preliminary 12/10/17 10:50 Chest Acid Fast Bacilli Smear - Final 12/10/17 10:50 Chest Acid Fast Bacilli Culture - Preliminary 12/10/17 10:45 Chest Acid Fast Bacilli Smear - Final 12/10/17 10:45 Chest Acid Fast Bacilli Culture - Preliminary 12/10/17 10:40 Chest Fungal Culture - Preliminary 12/10/17 10:45 Chest Fungal Culture - Preliminary 12/10/17 10:50 Chest Fungal Culture - Preliminary 12/24/17 11:30 Catheter Tip Catheter Tip Culture - Final 12/15/17 10:40 Bronchial Washings - Left Fungal Culture - Preliminary Rachana albicans 12/15/17 10:40 Bronchial Washings - Left Gram Stain - Final 12/15/17 10:40 Bronchial Washings - Left Bronchial Washings Culture - Final Rachana albicans 12/14/17 21:30 Sputum Gram Stain - Final 12/14/17 21:30 Sputum Sputum Culture - Final Rachana albicans 12/10/17 10:50 Chest Anaerobic Culture - Final 12/10/17 10:40 Chest Anaerobic Culture - Final 12/10/17 10:45 Chest Anaerobic Culture - Final 12/13/17 05:27 Urine,Catheterized Urine Culture - Final 12/10/17 10:40 Chest Gram Stain - Final 12/10/17 10:40 Chest Wound Culture - Final Serratia marcescens 12/10/17 10:45 Chest Gram Stain - Final 12/10/17 10:45 Chest Tissue Culture - Final Serratia marcescens 12/10/17 10:50 Chest Gram Stain - Final 12/10/17 10:50 Chest Tissue Culture - Final Serratia marcescens 12/07/17 15:40 Chest Gram Stain - Final 12/07/17 15:40 Chest Wound Culture - Final Serratia marcescens 12/04/17 10:00 Urine,Voided Urine Culture - Final Escherichia coli Serratia marcescens 11/26/17 04:00 Sputum Gram Stain - Final 11/26/17 04:00 Sputum Sputum Culture - Final - Labs CBC & Chem 7: 12/28/17 04:30 12/28/17 04:30 Labs: Abnormal Lab Results - Last 24 Hours (Table) 12/27/17 12/28/17 12/28/17 Range/Units 04:42 04:30 04:30 RBC 2.65 L (3.80-5.40) m/uL Hgb 7.0 L* (11.4-16.0) gm/dL Hct 23.4 L (34.0-46.0) % MCHC 29.8 L (31.0-37.0) g/dL RDW 19.4 H (11.5-15.5) % ABG pCO2 57 H (35-45) mmHg ABG HCO3 32 H (21-25) mmol/L ABG Total CO2 34 H (19-24) mmol/L ABG O2 Saturation 99.0 H (94-97) % Sodium 146 H (137-145) mmol/L Carbon Dioxide 32 H (22-30) mmol/L BUN 44 H (7-17) mg/dL AST 44 H (14-36) U/L Total Protein 5.5 L (6.3-8.2) g/dL Albumin 2.5 L (3.5-5.0) g/dL 12/28/17 Range/Units 05:20 RBC (3.80-5.40) m/uL Hgb (11.4-16.0) gm/dL Hct (34.0-46.0) % MCHC (31.0-37.0) g/dL RDW (11.5-15.5) % ABG pCO2 54 H (35-45) mmHg ABG HCO3 33 H (21-25) mmol/L ABG Total CO2 34 H (19-24) mmol/L ABG O2 Saturation 98.2 H (94-97) % Sodium (137-145) mmol/L Carbon Dioxide (22-30) mmol/L BUN (7-17) mg/dL AST (14-36) U/L Total Protein (6.3-8.2) g/dL Albumin (3.5-5.0) g/dL Microbiology - Last 24 Hours (Table) 12/15/17 10:40 Acid Fast Bacilli Smear - Final Bronchial Washings - Left Acid Fast Bacilli Culture - Preliminary 12/10/17 10:50 Acid Fast Bacilli Smear - Final Chest Acid Fast Bacilli Culture - Preliminary 12/10/17 10:45 Acid Fast Bacilli Smear - Final Chest Acid Fast Bacilli Culture - Preliminary 12/10/17 10:40 Fungal Culture - Preliminary Chest 12/10/17 10:45 Fungal Culture - Preliminary Chest 12/10/17 10:50 Fungal Culture - Preliminary Chest Assessment and Plan Assessment: 1. Status post CABG with mitral valve replacement 2. Acute blood loss anemia with massive blood transfusions postoperatively, in a patient with history of GI bleed 3. Hypertension 4. Left subclavian stenosis 5. Proximal atrial fibrillation/flutter status post cardioversion with recurrence of atrial fibrillation 6. Acute Hypoxic respiratory failure, Re intubated x2. Status post tracheostomy 7. Obesity, BMI 41.6 8. S/P PICC line placement 9. 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 Acute UTI Serratia marcescens, E. coli 11. Bilateral pleural effusions, improved with diuretics. Possible aspiration pneumonia, possible fluid overload. 12. Sternal wound debridement, culture growing Serratia marcescens, status post wound VAC. Status post sternal flap grafting. 13. Pressure ulceration of back and buttocks, stage III 14. Diarrhea, ruling out C. difficile colitis. 15. Status post bronchoscopy with left lower lobe mucous plug discovered 16. ileus, Dobbhoff feedings on hold Plan: Continue on current medication regime , amiodarone, metoprolol ,reglan, monitoring and symptomatic treatment. .Maintain IV antibiotics, nebulized bronchodilators, steroids. PEG tube not recommended as per GI given proximity to sternal wound infection. Prognosis guarded given multiple complex medical issues. The impression and plan of care has been dictated as directed. : I performed a history and examination of this patient, discussed the same with the dictator. I agree with the dictator's note ,documented as a scribe. Any additional findings or plans will be noted.
[2017-12-28 18:20] LABS: Glucose,Whole Blood 82 mg/dL (75-99)
--- NOTE | 2017-12-28 20:02 | P.GSCN ---
History of Present Illness Consult date: 12/28/17 Reason for Consult: Ileus versus SBO History of present illness: Patient is post CABG with a complicated medical course postoperatively. Starting 2 days ago with a Dobbhoff tube in place she began experiencing episodes of vomiting. She is on the ventilator with a tracheostomy. Dobbhoff was placed by GI endoscopically recently. Attempts at PEG tube were apparently held because of abdominal wall edema and a recent right upper quadrant muscle flap exposure site for a sternal wound dehiscence. X-rays yesterday and today showed distention of the small bowel and colon. Slight increase today compared to yesterday. Patient says she has felt bloated but denies significant pain. Her white blood cell count has been fairly normal. She is afebrile. She is having bowel movements. She is on IV Reglan was started yesterday. Currently the Dobbhoff tube is to suction and continuous. No prior intra-abdominal surgeries. Review of Systems Limited review of systems per HPI given the tracheostomy Past Medical History Past Medical History: Atrial Fibrillation, GI Bleed, Hyperlipidemia, Hypertension, Osteoarthritis (OA) Additional Past Medical History / Comment(s): HX: Was told "leaky valve", pt states has been experiencing "gallbladder pain", followed by dr small for sx & elevated liver enzymes, shortness of breath with activity, recent GI bleed- transfusion in October 2017, has left subclavian stent-mostly occluded History of Any Multi-Drug Resistant Organisms: None Reported Past Surgical History: Heart Catheterization, Heart Catheterization With Stent, Orthopedic Surgery, Tonsillectomy Additional Past Surgical History / Comment(s): L subclavian stent x2, Other SX:D &C,NILDA, carpal tunnel geovanni Past Anesthesia/Blood Transfusion Reactions: No Reported Reaction Additional Past Anesthesia/Blood Transfusion Reaction / Comm: recent transfusion -no problems Date of Last Stent Placement:: 05/03/15 Additional Psychological History / Comment(s): . Stopped smoking several years ago. No experience or international travel. No animal exposures Smoking Status: Former smoker - Past Family History Mother Family Medical History: Hypertension Additional Family Medical History / Comment(s): LEAKY HEART VALVES,HEART PROBLEMS, WITH BOWEL OBS Father Family Medical History: Myocardial Infarction (OR) Additional Family Medical History / Comment(s): HEART PROBLEMS, AT AGE 68 WITH OR Medications and Allergies Home Medications Medication Instructions Recorded Confirmed Type Escitalopram [Lexapro] 10 mg PO HS 02/01/14 11/25/17 History Aspirin EC [Ecotrin Low Dose] 81 mg PO HS 02/19/16 11/25/17 History Atorvastatin [Lipitor] 20 mg PO DAILY #30 tab 09/04/17 11/25/17 Rx Furosemide [Lasix] 20 mg PO DAILY #30 tab 09/04/17 11/25/17 Rx Metoprolol Tartrate [Lopressor] 12.5 mg PO BID 09/17/17 11/25/17 History Amiodarone [Cordarone] 200 mg PO DAILY 10/12/17 11/25/17 History Warfarin [Coumadin] 3 mg PO DAILY #30 tab 10/14/17 11/25/17 Rx Aspirin 325 mg PO ONCE 11/25/17 11/25/17 History Allergies Allergy/AdvReac Type Severity Reaction Status Date / Time codeine AdvReac Hallucinati Verified 11/25/17 15:17 ons Surgical - Exam Vital Signs Temp Pulse Resp BP Pulse Ox 97.2 F L 82 16 103/72 98 11/25/17 06:02 11/25/17 06:02 11/25/17 06:02 11/25/17 06:02 11/25/17 06:02 Physical exam: General: Well-developed, well-nourished HEENT: Normocephalic, sclerae nonicteric, trach intact Abdomen: Nontender, mild distention, no skin abdominal wall edema and peripheral edema, right upper quadrant dressing with HENRI drain Extremities: Diffuse edema Neuro: Alert and oriented Results - Labs 12/28/17 04:30 12/28/17 04:30 Abnormal Lab Results - Last 24 Hours (Table) 12/28/17 12/28/17 12/28/17 Range/Units 04:30 04:30 05:20 RBC 2.65 L (3.80-5.40) m/uL Hgb 7.0 L* (11.4-16.0) gm/dL Hct 23.4 L (34.0-46.0) % MCHC 29.8 L (31.0-37.0) g/dL RDW 19.4 H (11.5-15.5) % ABG pCO2 54 H (35-45) mmHg ABG HCO3 33 H (21-25) mmol/L ABG Total CO2 34 H (19-24) mmol/L ABG O2 Saturation 98.2 H (94-97) % Sodium 146 H (137-145) mmol/L Carbon Dioxide 32 H (22-30) mmol/L BUN 44 H (7-17) mg/dL AST 44 H (14-36) U/L Total Protein 5.5 L (6.3-8.2) g/dL Albumin 2.5 L (3.5-5.0) g/dL Microbiology - Last 24 Hours (Table) 12/15/17 10:40 Acid Fast Bacilli Smear - Final Bronchial Washings - Left Acid Fast Bacilli Culture - Preliminary 12/10/17 10:50 Acid Fast Bacilli Smear - Final Chest Acid Fast Bacilli Culture - Preliminary 12/10/17 10:45 Acid Fast Bacilli Smear - Final Chest Acid Fast Bacilli Culture - Preliminary Diabetes panel 12/28/17 Range/Units 04:30 Sodium 146 H (137-145) mmol/L Potassium 3.8 (3.5-5.1) mmol/L Chloride 105 (98-107) mmol/L Carbon Dioxide 32 H (22-30) mmol/L BUN 44 H (7-17) mg/dL Creatinine 0.80 (0.52-1.04) mg/dL Glucose 84 (74-99) mg/dL Calcium 8.9 (8.4-10.2) mg/dL AST 44 H (14-36) U/L ALT 38 (9-52) U/L Alkaline Phosphatase 92 (38-126) U/L Total Protein 5.5 L (6.3-8.2) g/dL Albumin 2.5 L (3.5-5.0) g/dL Calcium panel 12/28/17 Range/Units 04:30 Calcium 8.9 (8.4-10.2) mg/dL Phosphorus 4.1 (2.5-4.5) mg/dL Albumin 2.5 L (3.5-5.0) g/dL Pituitary panel 12/28/17 Range/Units 04:30 Sodium 146 H (137-145) mmol/L Potassium 3.8 (3.5-5.1) mmol/L Chloride 105 (98-107) mmol/L Carbon Dioxide 32 H (22-30) mmol/L BUN 44 H (7-17) mg/dL Creatinine 0.80 (0.52-1.04) mg/dL Glucose 84 (74-99) mg/dL Calcium 8.9 (8.4-10.2) mg/dL Adrenal panel 12/28/17 Range/Units 04:30 Sodium 146 H (137-145) mmol/L Potassium 3.8 (3.5-5.1) mmol/L Chloride 105 (98-107) mmol/L Carbon Dioxide 32 H (22-30) mmol/L BUN 44 H (7-17) mg/dL Creatinine 0.80 (0.52-1.04) mg/dL Glucose 84 (74-99) mg/dL Calcium 8.9 (8.4-10.2) mg/dL Total Bilirubin 0.6 (0.2-1.3) mg/dL AST 44 H (14-36) U/L ALT 38 (9-52) U/L Alkaline Phosphatase 92 (38-126) U/L Total Protein 5.5 L (6.3-8.2) g/dL Albumin 2.5 L (3.5-5.0) g/dL Assessment and Plan (1) Ileus Narrative/Plan: X-ray pattern and history suggest ileus. We'll check repeat abdominal x-rays tomorrow. No significant benefit to nasogastric tube placement for the most part at this point given the decompressed appearing stomach. Would not place Dobbhoff to suction. I have asked the nurses to intermittently aspirate on the Dobbhoff with a Luis suction to see if any drainage can be obtained. We'll start daily Dulcolax suppositories. Increase activity as able as this will assist with the return of bowel function. Continue Reglan. Current Visit: Yes Status: Acute Code(s): K56.7 - ILEUS, UNSPECIFIED SNOMED Code(s): 872332372
[2017-12-28] MEDS: SENNOSIDES-DOCUSATE SODIUM 1 EACH TAB PO SCH (20:38)
[2017-12-28] MEDS: ESCITALOPRAM 10 MG TAB PO SCH (21:10)
--- NOTE | 2017-12-28 23:47 | P.PN ---
Subjective Progress Note Date: 12/28/17 Principal diagnosis: Sternal wound dehiscence Pleasant 67-year-old female who has an extensive past medical history who is now 14 days postoperative from her open heart procedure it which point in time a mitral valve placement occurred, reverse saphenous vein coronary artery bypass grafting 1 to obtuse marginal, Maze procedure and ligation of the left atrial appendage all occurred interoperatively left ventricular wall tear occurred and was repaired. The patient has a known history of multiple medical troubles before her surgery that included her obesity, COPD and marked deconditioning. Patient has had difficulties recently that included urinary tract infection with E. coli and Serratia and has been treated with intravenous antibiotic therapy with Zosyn. She was having some improvement but then developed dehiscence of her sternal wound and there are plans for surgical debridement tomorrow wound culture showing gram-negative bacilli and with at the infectious diseases consultation was requested. The patient continues to have significant respiratory difficulties and is currently on BiPAP for support. Postoperatively the patient was hemodynamically unstable which made even turning of the patient not possible which has resulted in unavoidable areas of skin breakdown, that are now treatable given her improvement 12/10/2017 reveals the patient to be postoperative from the sternal wound debridement. The surgical note as well as discussion with the surgical team reveals evidence of poor bone quality and all of the sternal wires had pulled through her bony areas. Negative pressure therapy is in place. She is tolerating this well. Plastic surgery consult has been requested for reconstruction of her chest in the near future. Gram-negative bacilli growing from the sternal wound. She is quite comfortable after procedure, chest tube was placed of the left cavity and this is improved some left lung function and she seems less short of breath. The daughter is present and her questions were answered. 12/11/2017 reveals the patient to have had some respiratory distress today and is back on BiPAP at this time. She relates that her pain is under much significant control. Been no other new acute complaints are being made. 12/13/2017 the patient remains in the ICU she is currently on BiPAP but relates that she is quite comfortable. We will work with the nursing staff to change her VAC dressing at this time. await the plastic surgery timeline. 12/15/2017 reveals the patient to remain in intensive care unit, her status has worsened and that she developed flash pulmonary edema and respiratory failure requiring reintubation sedation mechanical ventilation. She underwent bronchoscopy today for removal of mucous plugs and to help with the collapsed left lower lobe. The patient has require some vasopressor support but is more stable this afternoon than earlier. She is sedated and comfortable. She has significant decline of hemoglobin is 7.6. Anticoagulation was held. Is being closely monitored by surgery and they await the plastic surgery intervention. 12/16/2017 cases briefly discussed with the cardiothoracic nurse practitioner in that the wound VAC is being changed today. It is unchanged with no difficulties. No further bleeding is noted. Plastic surgery evaluation apparently will occur tomorrow so the surgical plan can be devised. 12/20/2017 since last visit current thoracic has again change the wound VAC without difficulties. She tolerated it well. She remains on the ventilator at this point in time, does not appear to have any plans for weaning because she will have her plastic closure over open chest tomorrow. She's been hemodynamically stable with intermittent atrial flutter. No significant changes of oxygen requirements, drainage from the wound VAC is minimal as is drainage from her chest tube. 12/21/2017 patient is status post the partial plastic closure of her sternal wound. Complete cardiac coverage occurred but only partial closure was possible. Oxygen requirements are improving postoperative and is being closely watched for any further blood loss anemia. 12/23/2017 reveals the patient to be extubated on BiPAP. She is comfortable with her pain level is about a 2. Shortness of breath is not severe. She is unable to eat and a Dobbhoff will be placed a bit later today to help her with nutritional status to help her recovery. The current situation is discussed with the cardiothoracic surgeon team 12/24/2017 reveals evidence of the changes status in that she has now had a tracheostomy applied due to her chronic respiratory failure. Cardiothoracic surgery has changed the dressing today. Patient is comfortable after her surgery. Denies new acute discomforts. 12/25/2017 reveals that the patient is doing well with her tracheostomy. She is on 35% FiO2 with excellent saturations. The patient relates that she is comfortable her pain level is no more than a 4. She is receiving feedings via the Dobbhoff is tolerating that well but is having a few soft stools without swapnil diarrhea. 12/27/2017 patient remained stable after tracheostomy. With pain level is no more than a 2 at this point in time. Feedings via the Dobbhoff are going well. The wound VAC dressing was changed today without difficulties. Leukocytosis is improving. No hypotension. 12/28/2017. Overall the patient has been stable and that her pulmonary status without acute change. Doing well with the tracheostomy. Patient however developed significant abdominal distention with a tympanic abdomen. Abdominal x -ray revealed evidence of ileus. She's been seen by general surgery and they will determine if she needs an NG tube based on x-rays. She apparently is more comfortable this evening that she was earlier in the day. Nursing staff relates no fevers. Objective - Vital Signs Vital signs: Vital Signs Temp 98.2 F 12/28/17 20:00 Pulse 78 12/28/17 23:33 Resp 20 12/28/17 22:00 BP 116/54 12/19/17 10:00 Pulse Ox 100 12/28/17 22:00 Intake & Output 12/28/17 12/28/17 12/29/17 06:59 18:59 06:59 Intake Total 519 293 46 Output Total 1118 1585 285 Balance -599 -1292 -239 Weight 106 kg Intake: IV 519 293 46 Albumin Human 25% 50 ml 50 In Empty Bag 1 bag @ 100 mls/hr IVPB ONCE ONE Rx#: [id number] Dextrose 5%-0.45% NaCl 1, 130 110 40 000 ml @ 10 mls/hr IV . Q24H [facility] Rx#:[id number] Fluconazole in NaCl,Iso- 100 Osm 200 mg In Saline 1 100ml.bag @ 100 mls/hr IVPB DAILY [facility] Rx#: [id number] Potassium Chloride 10 meq 100 In Sodium Chloride 0.9% 100 ml @ 100 mls/hr IV Q1H [facility] Rx#:[id number] Pressure Bag 39 33 6 Vancomycin 1,500 mg In 250 Sodium Chloride 0.9% 250 ml @ 125 mls/hr IVPB Q24H [facility] Rx#:[id number] Output: Drainage 690 580 170 Medial Chest Incision - 100 Woundvac Right Abdomen 690 480 170 Urine 428 1005 115 Other: Voiding Method Indwelling Catheter Indwelling Catheter Indwelling Catheter # Bowel Movements 1 ABP, PAP, CO, CI - Last Documented Arterial Blood Pressure 125/56 Pulmonary Artery Pressure 38/33 Cardiac Output 5.8 Cardiac Index 2.9 - Exam Obese 67-year-old woman who is now extubated on BiPAP HEENT: Anicteric conjunctiva are pink and moist nasal mucosa grossly intact without significant lesions, there is no thrush. Oral mucosa is dry but no swapnil lesions could be seen Neck: The neck is supple without significant lymphadenopathy or thyromegaly. Tracheostomy intact without bleeding Lungs: Symmetrical air entry is noted. There is scattered crackles but no swapnil bronchial sounds Heart: Irregular with an audible S1 and S2 soft S4 no audible murmur no click or rub Chest: The patient's mid sternotomy incision is now covered with a postoperative dressing from the plastic closure which is reported to be a partial flap closure Abdomen: Obese, Positive bowel sounds soft and nontender without palpable masses or organomegaly. There was no guarding or rebound. Extremities: The upper and lower extremities have evidence of edema harvest site is intact there is some bruising that is noted especially on the left groin area. IV sites are intact. Skin: With the nursing staff the buttocks pressure ulcerations are evaluated which are showing improvement. The ulceration on the skin fold above her buttocks is also evaluated and appears to be improving. Also improvement of the ulceration to the right wrist area. Skin however is now having some blistering due to her hypoalbuminemia and excessive volume. Sternal wound dressing is dry and intact. Neuro: Comfortable at this time pain level is 4, no acute changes neurologically - Labs CBC & Chem 7: 12/28/17 04:30 12/28/17 04:30 Labs: Abnormal Lab Results - Last 24 Hours (Table) 12/28/17 12/28/17 12/28/17 Range/Units 04:30 04:30 05:20 RBC 2.65 L (3.80-5.40) m/uL Hgb 7.0 L* (11.4-16.0) gm/dL Hct 23.4 L (34.0-46.0) % MCHC 29.8 L (31.0-37.0) g/dL RDW 19.4 H (11.5-15.5) % ABG pCO2 54 H (35-45) mmHg ABG HCO3 33 H (21-25) mmol/L ABG Total CO2 34 H (19-24) mmol/L ABG O2 Saturation 98.2 H (94-97) % Sodium 146 H (137-145) mmol/L Carbon Dioxide 32 H (22-30) mmol/L BUN 44 H (7-17) mg/dL AST 44 H (14-36) U/L Total Protein 5.5 L (6.3-8.2) g/dL Albumin 2.5 L (3.5-5.0) g/dL Microbiology - Last 24 Hours (Table) 12/15/17 10:40 Acid Fast Bacilli Smear - Final Bronchial Washings - Left Acid Fast Bacilli Culture - Preliminary 12/10/17 10:50 Acid Fast Bacilli Smear - Final Chest Acid Fast Bacilli Culture - Preliminary 12/10/17 10:45 Acid Fast Bacilli Smear - Final Chest Acid Fast Bacilli Culture - Preliminary Laboratory Results WBC 9.5 k/uL (3.8-10.6) 12/28/17 04:30 RBC 2.65 m/uL (3.80-5.40) L 12/28/17 04:30 Hgb 7.0 gm/dL (11.4-16.0) L* 12/28/17 04:30 Hct 23.4 % (34.0-46.0) L 12/28/17 04:30 MCV 88.1 fL (80.0-100.0) 12/28/17 04:30 MCH 26.3 pg (25.0-35.0) 12/28/17 04:30 MCHC 29.8 g/dL (31.0-37.0) L 12/28/17 04:30 RDW 19.4 % (11.5-15.5) H 12/28/17 04:30 Plt Count 400 k/uL (150-450) 12/28/17 04:30 Neutrophils % 87 % 12/27/17 05:10 Neutrophils % (Manual) 98 % 12/05/17 04:25 Lymphocytes % 5 % 12/27/17 05:10 Lymphocytes % (Manual) 1 % 12/05/17 04:25 Monocytes % 4 % 12/27/17 05:10 Monocytes % (Manual) 1 % 12/05/17 04:25 Eosinophils % 2 % 12/27/17 05:10 Basophils % 0 % 12/27/17 05:10 Myelocytes % 1 % 12/03/17 04:15 Neutrophils # 9.3 k/uL (1.3-7.7) H 12/27/17 05:10 Neutrophils # (Manual) 26.95 k/uL (1.3-7.7) H 12/05/17 04:25 Lymphocytes # 0.5 k/uL (1.0-4.8) L 12/27/17 05:10 Lymphocytes # (Manual) 0.28 k/uL (1.0-4.8) L 12/05/17 04:25 Monocytes # 0.4 k/uL (0-1.0) 12/27/17 05:10 Monocytes # (Manual) 0.28 k/uL (0-1.0) 12/05/17 04:25 Eosinophils # 0.2 k/uL (0-0.7) 12/27/17 05:10 Basophils # 0.0 k/uL (0-0.2) 12/27/17 05:10 Myelocytes # (Manual) 0.17 k/uL (0) H 12/03/17 04:15 Nucleated RBCs 0 /100 WBC (0-0) 12/05/17 04:25 Manual Slide Review Performed 12/05/17 04:25 Polychromasia Present 12/03/17 04:15 Hypochromasia Marked 12/28/17 04:30 Poikilocytosis Moderate 12/28/17 04:30 Anisocytosis Slight 12/28/17 04:30 Microcytosis Slight 12/17/17 04:45 Target Cells Present 12/03/17 04:15 PT 10.8 sec (9.0-12.0) 12/21/17 04:50 INR 1.1 (<1.2) 12/21/17 04:50 APTT 23.9 sec (22.0-30.0) 12/21/17 04:50 Fibrinogen 334 mg/dL (200-500) 11/26/17 04:22 Sample Site [place] 12/28/17 05:20 ABG pH 7.39 (7.35-7.45) 12/28/17 05:20 ABG pCO2 54 mmHg (35-45) H 12/28/17 05:20 ABG pO2 99 mmHg (83-108) 12/28/17 05:20 ABG HCO3 33 mmol/L (21-25) H 12/28/17 05:20 ABG Total CO2 34 mmol/L (19-24) H 12/28/17 05:20 ABG O2 Saturation 98.2 % (94-97) H 12/28/17 05:20 ABG Base Excess 7.7 mmol/L 12/28/17 05:20 ABG Hematocrit 24 % (34.0-46.0) L 11/25/17 17:37 Robbi Test no 12/28/17 05:20 ABG Sodium 144 mmol/L (135-146) 11/25/17 17:37 ABG Potassium 3.8 mmol/L (3.4-4.5) 11/25/17 17:37 ABG Ionized Calcium 4.0 mg/dL (4.5-5.3) L 11/25/17 17:37 ABG Glucose 139 mg/dL (75-99) H 11/25/17 17:37 ABG Lactic Acid 2.8 mmol/L (0.5-1.6) H* 11/25/17 17:37 Hemoglobin 7.8 gm/dL (11.4-16.0) L 11/25/17 17:37 FiO2 35 % 12/28/17 05:20 Sodium 146 mmol/L (137-145) H 12/28/17 04:30 Potassium 3.8 mmol/L (3.5-5.1) 12/28/17 04:30 Chloride 105 mmol/L (98-107) 12/28/17 04:30 Carbon Dioxide 32 mmol/L (22-30) H 12/28/17 04:30 Anion Gap 9 mmol/L 12/28/17 04:30 BUN 44 mg/dL (7-17) H 12/28/17 04:30 Creatinine 0.80 mg/dL (0.52-1.04) 12/28/17 04:30 Est GFR (MDRD) Af Amer >60 (>60 ml/min/1.73 sqM) 12/07/17 04:00 Est GFR (MDRD) Non-Af >60 (>60 ml/min/1.73 sqM) 12/07/17 04:00 Est GFR (CKD-EPI)AfAm 88 (>60 ml/min/1.73 sqM) 12/28/17 04:30 Est GFR (CKD-EPI)NonAf 77 (>60 ml/min/1.73 sqM) 12/28/17 04:30 Glucose 84 mg/dL (74-99) 12/28/17 04:30 POC Glucose (mg/dL) 82 mg/dL (75-99) 12/28/17 18:17 POC Glu Dual Rate Dealer ID Codie Lopez 12/28/17 18:17 Calcium 8.9 mg/dL (8.4-10.2) 12/28/17 04:30 Ionized Calcium Bruce 4.7 mg/dL (4.5-5.3) 12/11/17 15:45 Phosphorus 4.1 mg/dL (2.5-4.5) 12/28/17 04:30 Magnesium 2.0 mg/dL (1.6-2.3) 12/28/17 04:30 Total Bilirubin 0.6 mg/dL (0.2-1.3) 12/28/17 04:30 AST 44 U/L (14-36) H 12/28/17 04:30 ALT 38 U/L (9-52) 12/28/17 04:30 Alkaline Phosphatase 92 U/L (38-126) 12/28/17 04:30 Total Protein 5.5 g/dL (6.3-8.2) L 12/28/17 04:30 Albumin 2.5 g/dL (3.5-5.0) L 12/28/17 04:30 Prealbumin 7.0 mg/dL (18.0-42.0) L 12/27/17 05:10 Arterial Blood Potassium 3.8 mmol/L (3.4-4.5) 11/25/17 17:37 Arterial Blood Glucose 139 mg/dL (75-99) H 11/25/17 17:37 Urine Color Yellow 12/04/17 10:00 Urine Appearance Cloudy (Clear) H 12/04/17 10:00 Urine pH 5.5 (5.0-8.0) 12/04/17 10:00 Ur Specific [place] 1.015 (1.001-1.035) 12/04/17 10:00 Urine Protein Trace (Negative) H 12/04/17 10:00 Urine Glucose (UA) Negative (Negative) 12/04/17 10:00 Urine Ketones Negative (Negative) 12/04/17 10:00 Urine Blood Negative (Negative) 12/04/17 10:00 Urine Nitrite Negative (Negative) 12/04/17 10:00 Urine Bilirubin Negative (Negative) 12/04/17 10:00 Urine Urobilinogen <2.0 mg/dL (<2.0) 12/04/17 10:00 Ur Leukocyte Esterase Negative (Negative) 12/04/17 10:00 Urine RBC 7 /hpf (0-5) H 12/04/17 10:00 Urine WBC 1 /hpf (0-5) 12/04/17 10:00 Ur Squamous Epith Cells 8 /hpf (0-4) H 12/04/17 10:00 Urine Bacteria Occasional /hpf (None) H 12/04/17 10:00 Urine Mucus Rare /hpf (None) H 12/04/17 10:00 Fluid Source Bronchial Wash 12/15/17 10:40 Fluid Color Colorless 12/15/17 10:40 Fluid Appearance Cloudy 12/15/17 10:40 Fluid RBC 150 /uL 12/15/17 10:40 Fluid Nucleated Cells 6900 /uL 12/15/17 10:40 Fluid Polynuclear WBCs 95 % 12/15/17 10:40 Fluid Mononuclear WBCs 5 % 12/15/17 10:40 Vancomycin Trough 30.0 ug/mL 12/27/17 11:36 Random Vancomycin 21.2 ug/mL 12/16/17 04:15 Heparin-Ind Plt Ab Scrn 0.231 OD (<0.4) 11/29/17 04:50 Virus Source See Below 12/15/17 10:40 Viral Test See Below 12/15/17 10:40 Virus Analysis Interp See Below 12/15/17 10:40 Blood Type A Positive 12/21/17 11:28 Blood Type Recheck No 12/21/17 11:28 Antibody Screen NEGATIVE 12/21/17 11:28 Crossmatch See Detail 12/14/17 10:10 Transfuse Cryo [id number] 11/26/17 00:39 Transfuse Plasma 12/15/2017 12/15/17 05:51 Transfuse Platelets [id number] 11/25/17 14:55 Spec Expiration Date 12/24/2017 - 232712/21/17 11:28 Microbiology 12/15/17 10:40 Bronchial Washings - Left Acid Fast Bacilli Smear - Final 12/15/17 10:40 Bronchial Washings - Left Acid Fast Bacilli Culture - Preliminary 12/10/17 10:50 Chest Acid Fast Bacilli Smear - Final 12/10/17 10:50 Chest Acid Fast Bacilli Culture - Preliminary 12/10/17 10:45 Chest Acid Fast Bacilli Smear - Final 12/10/17 10:45 Chest Acid Fast Bacilli Culture - Preliminary 12/10/17 10:40 Chest Fungal Culture - Preliminary 12/10/17 10:45 Chest Fungal Culture - Preliminary 12/10/17 10:50 Chest Fungal Culture - Preliminary 12/24/17 11:30 Catheter Tip Catheter Tip Culture - Final 12/15/17 10:40 Bronchial Washings - Left Fungal Culture - Preliminary Rachana albicans 12/15/17 10:40 Bronchial Washings - Left Gram Stain - Final 12/15/17 10:40 Bronchial Washings - Left Bronchial Washings Culture - Final Rachana albicans 12/14/17 21:30 Sputum Gram Stain - Final 12/14/17 21:30 Sputum Sputum Culture - Final Rachana albicans 12/10/17 10:50 Chest Anaerobic Culture - Final 12/10/17 10:40 Chest Anaerobic Culture - Final 12/10/17 10:45 Chest Anaerobic Culture - Final 12/13/17 05:27 Urine,Catheterized Urine Culture - Final 12/10/17 10:40 Chest Gram Stain - Final 12/10/17 10:40 Chest Wound Culture - Final Serratia marcescens 12/10/17 10:45 Chest Gram Stain - Final 12/10/17 10:45 Chest Tissue Culture - Final Serratia marcescens 12/10/17 10:50 Chest Gram Stain - Final 12/10/17 10:50 Chest Tissue Culture - Final Serratia marcescens 12/07/17 15:40 Chest Gram Stain - Final 12/07/17 15:40 Chest Wound Culture - Final Serratia marcescens 12/04/17 10:00 Urine,Voided Urine Culture - Final Escherichia coli Serratia marcescens 11/26/17 04:00 Sputum Gram Stain - Final 11/26/17 04:00 Sputum Sputum Culture - Final Assessment and Plan (1) Severe mitral regurgitation Current Visit: Yes Status: Chronic Code(s): I34.0 - NONRHEUMATIC MITRAL ( VALVE) INSUFFICIENCY SNOMED Code(s): 46746394 (2) CAD (coronary artery disease) Current Visit: Yes Status: Chronic Code(s): I25.10 - ATHSCL HEART DISEASE OF [place] CORONARY ARTERY W/O ANG PCTRS SNOMED Code(s): 47532587 (3) Acute blood loss as cause of postoperative anemia Current Visit: Yes Status: Acute Code(s): D62 - ACUTE POSTHEMORRHAGIC ANEMIA SNOMED Code(s): 40146707806061430 (4) Pressure ulcer of contiguous region involving back and buttock, stage 3 Current Visit: Yes Status: Acute Code(s): L89.43 - PRESSR ULCER OF CONTIG SITE OF BACK, BUTTOCK AND HIP, STG 3 SNOMED Code(s): 637999614 (5) Sternal wound dehiscence Narrative/Plan: 67-year-old woman presents to Hospital for treatment of her severe mitral irritation. Underwent mitral valve replacement, coronary artery bypass grafting 1, Maze procedure and clipping of the left atrial appendage with a complication of the left ventricular wall tear. The patient has had a very protracted recovery she is now day 14 post operative and is still having difficulty with her respiratory status requiring BiPAP. The patient's nutritional status and underlying comorbidities have complicated her care. She now has evidence of the sternal dehiscence with evidence of gram negatives bacilli being found at the site. There is evidence of urinary tract infection with E. coli and Serratia. This Serratia species is somewhat resistant and consequently we'll alter the current antimicrobial therapy from Zosyn to meropenem to ensure coverage for other potential pathogens that are resistant that could be in the sternal wound while we await cultures. The patient will be going to the operating room tomorrow for debridement and wound VAC placement. The cultures were further direct the overall course of antibiotics. Urinary infection appears to be doing somewhat better. The patient fortunately is comfortable and doing well with her BiPAP. 12/10/2017 the patient is status post surgery and actually is feeling a bit better this afternoon than yesterday. Her pain is quite well controlled. She is not on BiPAP. She is less short of breath. Wound culture has verified the Serratia marcescens to the sternal wound. We'll constantly continue the current course of meropenem due to some of the resistance patterns or seeing with the species. Continue local care at this point time with the negative pressure system to the sternal wound. The plastic surgery consult is being requested for reconstruction of her chest. She will require a course of intravenous antibiotic therapy given her complex infection. Dual-lumen PICC is already in place. We'll repeat the discharge planners as to her place of rehab. 12/11/2017 the patient is metabolically stable but is having difficulties with her respiratory status and is now back on BiPAP which has been intermittent over the last multiple days. Negative pressure therapy remains intact and the sternum and we await the plastic surgery intervention. 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 Continue supportive care, and nutritional supplements as possible to improve for tissue healing. 12/13/2017 patient is on BiPAP. She is comfortable at this time. Receiving her intravenous antibiotic therapy without difficulties. At this time the surgeon present in a sterile fashion the wound VAC is removed. Surgeon evaluates and then the wound VAC is reapplied with 2 of the white foam, periwound protected with DuoDERM no difficulty with the seal. Merrem continues. 12/15/2017 the patient has had marked worsening of her status in that she had respiratory failure requiring reintubation and mechanical ventilation. She is now sedated and comfortable but has had some hemodynamic instability and is now back on vasopressor therapy. Bronchoscopy is performed and suctioning of mucous plugs as allowed some improvement of her pulmonary status. Further cultures are process. Meropenem and vancomycin continue for the isolated Serratia and concerns for resistant gram-positive infection at this time. Plastic surgery evaluation is in process and surgical plans for later this week appear to be possible. 12/16/2017 reveals the patient to be stable from the last 24 hours. Her ventilatory settings are similar. She's currently not on vasopressor therapy. She is tolerating current antibiotic therapy well with no difficulties with rash and diarrhea or marked changes of her hematological parameters. She's had no further active bleeding. Sputum culture with gram-positive cocci seen vancomycin was added we await final cultures. 12/20/2017 patient remained stable and is being prepped for her sternal reconstruction surgery tomorrow. She's not on vasopressor therapy, and vent settings are stable. Most recent bronchoscopy showed mucous plug no evidence of any new pathogens except yeast was found likely from upper airways. Fluconazole was added given her significant risks, although fungal pneumonia is not occurring at this time. At the time of reconstruction repeat samplings from her sternum will be helpful to help direct the course of antibiotic therapy , pathology and culture of the sternum will be helpful. Remains on the meropenem and vancomycin at this time. 12/21/2017 the patient is status post the sternal reconstruction with muscle flap, reportedly is only a partial closure at this time. However visit. The cardiac structure is completely covered. The patient is showing improvement in her cardiopulmonary status today. No active bleeding is noted. She is tolerating current antibiotic therapy well with meropenem and vancomycin. Await final culture and pathological data to help derive the course of her antibiotic therapy 12/23/2017 reveals the patient to be improved, she has been extubated and tolerating BiPAP well. The case is discussed with the cardiothoracic surgeon. The muscle flap was then performed and there is a biological skin substitute over the flap. She related that the plastic surgeon would not allow a wound VAC to be placed for approximately 10 days after the surgery. We will monitor. Continue current antibiotic therapy planning a multiweek course of therapy for the complex sternal wound infection. 12/24/2017 reveals the patient to have further improvement that she has had a tracheostomy placed. This will hopefully help her long-term weaning situation and also help with the nutritional difficulties. As she has improvement of her status hopefully the significant difference with her skin from the edema low albumin and blistering will improve. Receiving extensive antibiotic therapy for the sternal wound dehiscence will continue with the meropenem and vancomycin at this time. 12/25/2017 reveals the patient to have some improvement in the last 24 hours. She's doing well with a tracheostomy and is on 35% FiO2. Pain control is well at this point in time. Her spitting edema seems to be slightly improving and does not have as many blisters that she was having. Still does have anasarca but appears to be a bit less tight than she was a day ago. Her wounds are improving with the local wound care. Antibiotic therapy continues with meropenem and vancomycin for the sternal wound dehiscence and infection. Dressing changes have been per the cardiothoracic team to the chest wound. The abdominal wound is healing well and is having some serous drainage related to the anasarca. Hopefully with improving edema status and improve nutritional status anasarca will resolve. 12/27/2017 reveals a patient with further improvement. Her anasarca is improving and she is having less edema. She is tolerating the intravenous antibiotic therapy of meropenem and vancomycin for her sternal wound dehiscence. Leukocytosis in general is improved. No other new infections are noted. She had a wound VAC dressing change today of the sternal area. 12/28/2017 reveals the patient to have developed some bowel distention and concerns to ileus. She's been seen by general surgery. He will determine if she needs to have her Dobbhoff removed and an NG tube place. The patient has significant hypo albuminemia and is in need of the extensive supplementation, consequently TPN was requested per the surgeon. She will remain on her antibiotic therapy planning 6 weeks for the complex sternal dehiscence. Cardiothoracic surgery have changed her VAC dressing to her sternal wound. Current Visit: Yes Status: Acute Code(s): T81.32XA - DISRUPTION OF INTERNAL OPERATION (SURGICAL) WOUND, NEC, INIT SNOMED Code(s): 06395400
[2017-12-29 00:20] LABS: Glucose,Whole Blood 81 mg/dL (75-99)
[2017-12-29] MEDS: INSULIN ASPART 100 UNIT/ML 1 ML 10 ML VIAL SQ SCH ×4 (00:49→17:58)
[2017-12-29] MEDS: HEPARIN SODIUM,PORCINE 5,000 UNIT/ML 1 ML VIAL SQ SCH ×3 (01:20→15:51)
[2017-12-29] MEDS: METOCLOPRAMIDE 5 MG/ML 2 ML VIAL IVP SCH ×4 (01:20→17:58)
[2017-12-29] MEDS: IPRATROPIUM-ALBUTEROL 3 ML NEB INHALATION SCH ×6 (03:15→23:30)
[2017-12-29 04:40] LABS: Anisocytosis Slight; HCT 24.8 % (34.0-46.0); HGB 7.2 gm/dL (11.4-16.0); Hypochromasia Marked; MCH 25.6 pg (25.0-35.0); MCHC 28.9 g/dL (31.0-37.0); MCV 88.3 fL (80.0-100.0); Mean Platelet Volume 8.8; Platelet Count 390 k/uL (150-450); Poikilocytosis Slight; RBC 2.81 m/uL (3.80-5.40); RDW 19.6 % (11.5-15.5); WBC 8.7 k/uL (3.8-10.6)
[2017-12-29 04:57] LABS: Albumin 2.6 g/dL (3.5-5.0); Calcium 9.1 mg/dL (8.4-10.2); Magnesium 2.2 mg/dL (1.6-2.3); Phosphorus 3.9 mg/dL (2.5-4.5); Potassium 3.6 mmol/L (3.5-5.1); Total Bilirubin 0.6 mg/dL (0.2-1.3); Total Protein 5.6 g/dL (6.3-8.2)
[2017-12-29 05:11] LABS: ABG Base Excess 6.6 mmol/L; ABG HCO3 31 mmol/L (21-25); ABG Oxygen Saturation 98.6 % (94-97); ABG PCO2 49 mmHg (35-45); ABG PH 7.42 (7.35-7.45); ABG PO2 103 mmHg (83-108); ABG TCO2 33 mmol/L (19-24)
[2017-12-29 06:23] LABS: Glucose,Whole Blood 72 mg/dL (75-99)
[2017-12-29] MEDS ORDERED: DEXTROSE 50%-WATER 50 ML SYRINGE IVP ONE (06:23)
[2017-12-29] MEDS ORDERED: Potassium Replacement Protocol 1 EACH MISC MISCELLANE PRN (07:05)
--- NOTE | 2017-12-29 07:06 | P.PN ---
Subjective Progress Note Date: 12/29/17 Principal diagnosis: Ileus Patient awake on the ventilator. Denies abdominal pain. She says she feels gassy. She has passed flatus. No bowel movement since yesterday evening. Morning x-rays show some persistent bowel dilation although appears slightly improved. With the nurses aspirating the Dobbhoff tube they were unable to aspirate any fluid. Morning labs pending. Objective - Vital Signs Vital signs: Vital Signs Temp 98.2 F 12/29/17 04:00 Pulse 79 12/29/17 06:00 Resp 20 12/29/17 06:00 BP 116/54 12/19/17 10:00 Pulse Ox 100 12/29/17 06:00 Intake & Output 12/28/17 12/29/17 12/29/17 18:59 06:59 18:59 Intake Total 293 150 Output Total 1585 1050 Balance -1292 -900 Weight 105.5 kg Intake: IV 293 150 Albumin Human 25% 50 ml 50 In Empty Bag 1 bag @ 100 mls/hr IVPB ONCE ONE Rx#: [id number] Dextrose 5%-0.45% NaCl 1, 110 120 000 ml @ 10 mls/hr IV . Q24H [facility] Rx#:[id number] Fluconazole in NaCl,Iso- 100 Osm 200 mg In Saline 1 100ml.bag @ 100 mls/hr IVPB DAILY [facility] Rx#: [id number] Pressure Bag 33 30 Output: Drainage 580 695 Medial Chest Incision - 100 Woundvac Right Abdomen 480 695 Urine 1005 355 Other: Voiding Method Indwelling Catheter Indwelling Catheter ABP, PAP, CO, CI - Last Documented Arterial Blood Pressure 122/55 Pulmonary Artery Pressure 38/33 Cardiac Output 5.8 Cardiac Index 2.9 - Exam Abdomen: Soft, mild distention, no appreciable tenderness, bowel sounds diminished - Labs CBC & Chem 7: 12/29/17 04:20 12/29/17 04:20 Labs: Abnormal Lab Results - Last 24 Hours (Table) 12/29/17 12/29/17 12/29/17 Range/Units 04:20 04:20 05:10 RBC 2.81 L (3.80-5.40) m/uL Hgb 7.2 L (11.4-16.0) gm/dL Hct 24.8 L (34.0-46.0) % MCHC 28.9 L (31.0-37.0) g/dL RDW 19.6 H (11.5-15.5) % ABG pCO2 49 H (35-45) mmHg ABG HCO3 31 H (21-25) mmol/L ABG Total CO2 33 H (19-24) mmol/L ABG O2 Saturation 98.6 H (94-97) % Sodium 148 H (137-145) mmol/L BUN 45 H (7-17) mg/dL Glucose 73 L (74-99) mg/dL POC Glucose (mg/dL) (75-99) mg/dL AST 39 H (14-36) U/L Total Protein 5.6 L (6.3-8.2) g/dL Albumin 2.6 L (3.5-5.0) g/dL 12/29/17 Range/Units 06:21 RBC (3.80-5.40) m/uL Hgb (11.4-16.0) gm/dL Hct (34.0-46.0) % MCHC (31.0-37.0) g/dL RDW (11.5-15.5) % ABG pCO2 (35-45) mmHg ABG HCO3 (21-25) mmol/L ABG Total CO2 (19-24) mmol/L ABG O2 Saturation (94-97) % Sodium (137-145) mmol/L BUN (7-17) mg/dL Glucose (74-99) mg/dL POC Glucose (mg/dL) 72 L (75-99) mg/dL AST (14-36) U/L Total Protein (6.3-8.2) g/dL Albumin (3.5-5.0) g/dL Microbiology - Last 24 Hours (Table) 12/15/17 10:40 Acid Fast Bacilli Smear - Final Bronchial Washings - Left Acid Fast Bacilli Culture - Preliminary 12/10/17 10:50 Acid Fast Bacilli Smear - Final Chest Acid Fast Bacilli Culture - Preliminary 12/10/17 10:45 Acid Fast Bacilli Smear - Final Chest Acid Fast Bacilli Culture - Preliminary Assessment and Plan (1) Ileus Narrative/Plan: Will add lactulose down Dobbhoff tube and see how patient responds to that. If she develops crampy pain will recommend discontinuing the lactulose. Continue Reglan. Hold tube feeds for 1 additional day at this time. Hopefully can resume at low dose tomorrow. Current Visit: Yes Status: Acute Code(s): K56.7 - ILEUS, UNSPECIFIED SNOMED Code(s): 720648782
[2017-12-29 07:09] LABS: Glucose,Whole Blood 109 mg/dL (75-99)
[2017-12-29] MEDS ORDERED: POTASSIUM BICARBONATE/CIT AC 20 MEQ TABLET.EFF NG-TUBE SCH (08:00)
[2017-12-29] MEDS ORDERED: ALBUMIN HUMAN 25% 50 ML in EMPTY BAG 1 BAG IVPB ONE (08:07)
[2017-12-29] MEDS: BUDESONIDE 1 MG/2 ML NEBU INHALATION SCH ×2 (08:11→19:18)
[2017-12-29] MEDS: PANTOPRAZOLE 40 MG TABLET PO SCH (08:34)
[2017-12-29] MEDS: AMIODARONE 200 MG TAB PO SCH (08:36)
[2017-12-29] MEDS: ASPIRIN 81 MG PO SCH (08:36)
[2017-12-29] MEDS: ATORVASTATIN 40 MG TAB PO SCH (08:36)
[2017-12-29] MEDS: FLUCONAZOLE IN NACL,ISO-OSM 200 MG in SALINE 1 100ML.BAG IVPB SCH (08:36)
[2017-12-29] MEDS: CHLORHEXIDINE GLUCONATE 15 ML CUP MUCOUS MEM SCH ×2 (08:36→20:12)
--- NOTE | 2017-12-29 08:37 | P.PN ---
Subjective Progress Note Date: 12/29/17 Principal diagnosis: Severe mitral valve regurgitation. Coronary artery disease. Preoperative paroxysmal atrial fibrillation on outpatient Coumadin for anticoagulation. Recent hospitalization for lower GI bleed, and duodenal ulcer. History of left subclavian stenosis with stent placement 2014 with recent discovery of critical re-in-stent stenosis. Previous tobacco dependence with preoperative FEV1 60% of predicted. Hypertension. Hyperlipidemia. Depression on Lexapro. Gallbladder disease. Family history of heart disease. Preoperative nasal swab positive for MRSA. Preoperative anemia. POD #33 and Mitral valve replacement using a 25 mm Ribera bioprosthetic tissue valve. Coronary artery bypass grafting 1, a reverse greater saphenous vein graft to the obtuse marginal coronary artery. Endoscopic harvesting of the left greater saphenous vein. Modified MAZE procedure. The report wasn't back yet not back in Ligation of the left atrial appendage using a 40 mm AtriClip. Epi- aortic ultrasound. Intraoperative transesophageal echocardiogram. Intraoperative left ventricular wall tear, an unexpected but potential outcome of surgery. Acute blood loss anemia, an expected outcome given patient's preoperative anemia and intraoperative bleeding. Postoperative prolonged mechanical ventilation secondary to hemodynamic instability, an unexpected but potential outcome of surgery given the extensive nature of her postoperative course. Sternal incision dehiscence, possible outcome of surgery given the patient's obesity, nutrition status and ability. POD #18 sternal wound debridement with placement of wound VAC. POD #13 bronchoscopy and bronchoalveolar lavage of the left lower lobe and extraction of mucous plug POD #7 right rectus abdominous muscle flap closure, open sternal wound. Closure of sternal wound and muscle flap with skin graft substitute, 238 cm. Implantation of reconstructive graft for closure of abdominal wall wound, [address] Krause. Postoperative left lower lobe collapse secondary to mucous plugging, and unexpected but potential outcome of surgery. Bronchial washings positive for Rachana species. Postoperative ileus, an unexpected but potential outcome of surgery. Patient is currently lying in bed with her head elevated at 45. She is in no acute distress. She continues to complain feeling bloated, although her abdomen feels better today. Dr. Lofton from general surgery evaluated the patient yesterday and started the patient on lactulose. Her tracheostomy is midline and intact, sutures are in place, she remains with mechanical ventilator support. Bedside telemetry showing normal sinus rhythm heart with global ST depression heart rate 86. Dobbhoff tube in place, tube feedings continued to be on hold due to her ileus. This will be reevaluated today by Dr. Lofton. Objective - Vital Signs Vital signs: Vital Signs Temp 98.2 F 12/29/17 04:00 Pulse 86 12/29/17 07:00 Resp 20 12/29/17 07:00 BP 116/54 12/19/17 10:00 Pulse Ox 99 12/29/17 07:00 Intake & Output 12/28/17 12/29/17 12/29/17 18:59 06:59 18:59 Intake Total 293 150 13 Output Total 1585 1050 60 Balance -1292 -900 -47 Weight 105.5 kg Intake: IV 293 150 13 Albumin Human 25% 50 ml 50 In Empty Bag 1 bag @ 100 mls/hr IVPB ONCE ONE Rx#: [id number] Dextrose 5%-0.45% NaCl 1, 110 120 10 000 ml @ 10 mls/hr IV . Q24H [facility] Rx#:[id number] Fluconazole in NaCl,Iso- 100 Osm 200 mg In Saline 1 100ml.bag @ 100 mls/hr IVPB DAILY [facility] Rx#: [id number] Pressure Bag 33 30 3 Output: Drainage 580 695 Medial Chest Incision - 100 Woundvac Right Abdomen 480 695 Urine 1005 355 60 Other: Voiding Method Indwelling Catheter Indwelling Catheter ABP, PAP, CO, CI - Last Documented Arterial Blood Pressure 148/62 Pulmonary Artery Pressure 38/33 Cardiac Output 5.8 Cardiac Index 2.9 - Constitutional Constitutional Comment(s): She is alert and oriented 3. She is shakes her head no when asked if having any pain. General appearance: Present: cooperative, no acute distress, obese - EENT ENT: Present: hearing grossly normal - Neck Details: Neck is supple, no JVD, no lymphadenopathy. #8 Shiley trach is midline and secured with sutures. - Respiratory Details: Lungs sounds essentially clear to her bilateral upper lobes, diminished bilateral bases. Respirations are symmetrical and nonlabored with mechanical ventilator support. Oxygen saturation are 99% with current mechanical ventilator settings. #8 Shiley trach midline and intact with mechanical ventilator. Current vent mechanical ventilator settings are assist control 20, TV 400, FiO2 35%, PEEP 5. - Cardiovascular Details: Regular rhythm and rate. S1 and S2 present, negative for S3, gallop or murmur. Chest chest wound with postoperative muscle flap and VAC dressing intact. Bedside telemetry showing normal sinus rhythm with global ST depression heart rate 86. Anasarca with weeping edema. Vance wraps in place from toes to thighs to bilateral lower extremities. Knee-high sequential compression devices in place to her bilateral lower extremities. Right brachial arterial line in place and functioning. Left brachial PICC line in place and functioning. - Gastrointestinal Gastrointestinal Comment(s): Abdomen is soft, nontender and distended. Hypoactive bowel sounds to all 4, quadrants. Right near Dobbhoff tube in place to low intermittent wall suction. No guarding or rigidity. Tube feedings are to hold at this time. - Genitourinary Genitourinary Comment(s): Mason catheter for accurate I&O. Draining clear yellow urine. 240 mL output in the last 8 hours. - Integumentary Integumentary Comment(s): Skin is warm and dry. No clubbing or cyanosis. Anasarca with scattered areas of blistering and weeping thin serous drainage. Pressure ulcerations to her buttocks with local wound care. Eschar area to her occipital head clean and dry. No drainage present. VAC dressing in place to her chest wound with scant thin serous drainage. VAC settings are 100 mmHg pressure, medium intensity, continuous setting. HENRI drain in place to her right lower abdomen draining copious thin serous drainage 1175 mL output in the last 24 hours. - Neurologic Neurologic: Present: CNII-XII intact - Musculoskeletal Musculoskeletal: Present: generalized weakness, strength equal bilaterally - Psychiatric Psychiatric Comment(s): Flat affect. Psychiatric: Present: A&O x's 3, intact judgment & insight - Allied health notes Allied health notes reviewed: nursing - Labs CBC & Chem 7: 12/29/17 04:20 12/29/17 04:20 Labs: Abnormal Lab Results - Last 24 Hours (Table) 12/29/17 12/29/17 12/29/17 Range/Units 04:20 04:20 05:10 RBC 2.81 L (3.80-5.40) m/uL Hgb 7.2 L (11.4-16.0) gm/dL Hct 24.8 L (34.0-46.0) % MCHC 28.9 L (31.0-37.0) g/dL RDW 19.6 H (11.5-15.5) % ABG pCO2 49 H (35-45) mmHg ABG HCO3 31 H (21-25) mmol/L ABG Total CO2 33 H (19-24) mmol/L ABG O2 Saturation 98.6 H (94-97) % Sodium 148 H (137-145) mmol/L BUN 45 H (7-17) mg/dL Glucose 73 L (74-99) mg/dL POC Glucose (mg/dL) (75-99) mg/dL AST 39 H (14-36) U/L Total Protein 5.6 L (6.3-8.2) g/dL Albumin 2.6 L (3.5-5.0) g/dL 12/29/17 12/29/17 Range/Units 06:21 06:55 RBC (3.80-5.40) m/uL Hgb (11.4-16.0) gm/dL Hct (34.0-46.0) % MCHC (31.0-37.0) g/dL RDW (11.5-15.5) % ABG pCO2 (35-45) mmHg ABG HCO3 (21-25) mmol/L ABG Total CO2 (19-24) mmol/L ABG O2 Saturation (94-97) % Sodium (137-145) mmol/L BUN (7-17) mg/dL Glucose (74-99) mg/dL POC Glucose (mg/dL) 72 L 109 H (75-99) mg/dL AST (14-36) U/L Total Protein (6.3-8.2) g/dL Albumin (3.5-5.0) g/dL Microbiology - Last 24 Hours (Table) 12/15/17 10:40 Acid Fast Bacilli Smear - Final Bronchial Washings - Left Acid Fast Bacilli Culture - Preliminary 12/10/17 10:50 Acid Fast Bacilli Smear - Final Chest Acid Fast Bacilli Culture - Preliminary 12/10/17 10:45 Acid Fast Bacilli Smear - Final Chest Acid Fast Bacilli Culture - Preliminary - Imaging and Cardiology Chest x-ray: report reviewed, image reviewed Assessment and Plan (1) Acute blood loss as cause of postoperative anemia Current Visit: Yes Status: Acute Code(s): D62 - ACUTE POSTHEMORRHAGIC ANEMIA SNOMED Code(s): 97164526972144125 (2) CAD (coronary artery disease) Current Visit: Yes Status: Chronic Code(s): I25.10 - ATHSCL HEART DISEASE OF [place] CORONARY ARTERY W/O ANG PCTRS SNOMED Code(s): 44350958 (3) Family history of coronary artery disease Current Visit: Yes Status: Chronic Code(s): Z82.49 - FAMILY HX OF ISCHEM HEART DIS AND OTH DIS OF THE CIRC SYS SNOMED Code(s): 623518947 (4) Hyperlipidemia Current Visit: Yes Status: Chronic Code(s): E78.5 - HYPERLIPIDEMIA, UNSPECIFIED SNOMED Code(s): 30633070 (5) Hypertension Current Visit: Yes Status: Chronic Code(s): I10 - ESSENTIAL (PRIMARY) HYPERTENSION SNOMED Code(s): 22792479 (6) Severe mitral regurgitation Current Visit: Yes Status: Chronic Code(s): I34.0 - NONRHEUMATIC MITRAL ( VALVE) INSUFFICIENCY SNOMED Code(s): 62540797 (7) Stenosis of left subclavian artery Current Visit: Yes Status: Chronic Code(s): I77.1 - STRICTURE OF ARTERY SNOMED Code(s): 54572234970791820 (8) PAD (peripheral artery disease) Current Visit: No Status: Acute Code(s): I73.9 - PERIPHERAL VASCULAR DISEASE , UNSPECIFIED SNOMED Code(s): 945522127 (9) History of GI bleed Current Visit: No Status: Resolved Code(s): Z87.19 - PERSONAL HISTORY OF OTHER DISEASES OF THE DIGESTIVE SYSTEM SNOMED Code(s): 539463111 (10) Paroxysmal atrial fibrillation Current Visit: No Status: Resolved Code(s): I48.0 - PAROXYSMAL ATRIAL FIBRILLATION SNOMED Code(s): 572676160 (11) Elevated aspartate aminotransferase level Current Visit: Yes Status: Acute Code(s): R74.0 - NONSPEC ELEV OF LEVELS OF TRANSAMNS & LACTIC ACID DEHYDRGNSE SNOMED Code(s): 345317169 (12) Ileus, postoperative Current Visit: Yes Status: Acute Code(s): K91.89 - OTH POSTPROCEDURAL COMPLICATIONS AND DISORDERS OF DGSTV SYS; K56.7 - ILEUS, UNSPECIFIED SNOMED Code(s): 139345177 Plan: 1. Continue low-dose aspirin, statin, subcutaneous heparin, beta krunal. Will increase beta krunal therapy as tolerated. 2. Continue amiodarone to 200 mg daily per Dobbhoff daily for history of paroxysmal atrial fibrillation on home amiodarone. 3. Pulmonary and ventilator management per Dr. Ledbetter's recommendations. 4. Continue meropenem, vancomycin and Diflucan per Dr. Olivera management 5. Hold tube feedings for now per Dr. Ledbetter. Flat plate abdominal x-ray ordered for re-evaluation. 6. Will monitor labs, chest x-rays daily. 7. Bronchodilators per pulmonology management. 8. Continue VAC dressing to her chest wound. Place Adaptic down over Integra dressing, placed black granuafoam, placed a wound VAC drainage system if possible 100 mmHg, medium intensity and continuous setting. Change VAC dressing Wednesdays and Fridays. Wound VAC dressing will be changed today. Also per Dr. Galindo no contraindication for PEG tube placement if needed. 9. GI/DVT prophylaxis. 10. Dr. Lofton from general surgery following for ileus management. TPN will be started today. 11. Albumin 25% followed by Lasix 40 mg IV 1 today. 12. Continue Mason catheter for accurate I&O. 13. Reglan 10 continue mg IV every 6 hours. Lactulose 20 g per Dobbhoff tube 3 times a day started by general surgery. 14. More recommendations as patient progresses in her care. Time with Patient: Greater than 30
[2017-12-29] MEDS: LACTULOSE 20 GM/30 ML CUP PO SCH ×2 (08:38→15:55)
[2017-12-29] MEDS: LACTOBACILLUS ACIDOPH & BULGAR 1 EACH PACKET PO SCH ×3 (08:38→20:19)
[2017-12-29] MEDS: VANCOMYCIN 1,500 MG in SODIUM CHLORIDE 0.9% 250 ML IVPB SCH (08:39)
[2017-12-29] MEDS: DEXTROSE 5%-0.45% NACL 1,000 ML IV SCH (08:39)
[2017-12-29] MEDS: METOPROLOL TARTRATE 50 MG TAB NG-TUBE SCH ×2 (08:39→20:12)
--- NOTE | 2017-12-29 08:39 | XR ---
EXAMINATION TYPE: XR chest 1V portable DATE OF EXAM: 12/29/2017 COMPARISON: Prior chest 12/28/2017 HISTORY: Ventilator management, abnormal chest x-ray TECHNIQUE: Single frontal view of the chest is obtained. FINDINGS: Tracheostomy tube is overlying the tracheal air column, Dobbhoff tube is in place and the distal tip is not included on the exam. There is no evident pneumothorax. Heart remains enlarged, pat ient is post valve replacement, atrial appendage clipping. Blunting the left costophrenic angle persi sts greater than right. Question some slight improvement in aeration at the right lung base, surgical clips present over the midline. Left-sided PICC line shows the distal tip overlying superior vena ca va. IMPRESSION: There may be some slight improved aeration.
--- NOTE | 2017-12-29 08:41 | XR ---
2 view abdomen HISTORY: Follow-up ileus 2 views of the abdomen submitted and correlated to prior exam 12/28/2017 There is a Dobbhoff tube present with the distal tip overlying the mid abdomen. Surgical maya and drain are present in the right upper quadrant. Basilar effusions and associated atelectasis noted inc identally. Heart is enlarged, there are postop changes in the heart. No evident pneumoperitoneum. The re are air-filled loops of bowel present. Retained fecal debris present within the rectum. Suspect ov erlying artifact, possible to in the pelvis, correlate. IMPRESSION: There may be some slight improvement in distention of bowel loops.
--- NOTE | 2017-12-29 08:53 | P.PN ---
Subjective Progress Note Date: 12/29/17 Principal diagnosis: 67-year-old female status post CABG one month ago with MVR complicated by sternal wound dehiscence. Status post tracheostomy. Status post EGD with Dobbhoff tube placement. Reevaluated today in regards to recent abdominal distention possible ileus. Patient's tube feedings were stopped a few days ago secondary to abdominal xray findings. Receiving Reglan and lactulose; evaluated by general surgery yesterday. Passing flatus no bowel movements since yesterday morning. Denies nausea vomiting. Abdominal x-rays this morning slight improvement and distention of bowel loops. Objective - Vital Signs Vital signs: Vital Signs Temp 98.2 F 12/29/17 04:00 Pulse 80 12/29/17 08:39 Resp 20 12/29/17 07:00 BP 116/54 12/19/17 10:00 Pulse Ox 99 12/29/17 07:00 Intake & Output 12/28/17 12/29/17 12/29/17 18:59 06:59 18:59 Intake Total 293 150 13 Output Total 1585 1050 60 Balance -1292 -900 -47 Weight 105.5 kg Intake: IV 293 150 13 Albumin Human 25% 50 ml 50 In Empty Bag 1 bag @ 100 mls/hr IVPB ONCE ONE Rx#: [id number] Dextrose 5%-0.45% NaCl 1, 110 120 10 000 ml @ 10 mls/hr IV . Q24H [facility] Rx#:[id number] Fluconazole in NaCl,Iso- 100 Osm 200 mg In Saline 1 100ml.bag @ 100 mls/hr IVPB DAILY [facility] Rx#: [id number] Pressure Bag 33 30 3 Output: Drainage 580 695 Medial Chest Incision - 100 Woundvac Right Abdomen 480 695 Urine 1005 355 60 Other: Voiding Method Indwelling Catheter Indwelling Catheter ABP, PAP, CO, CI - Last Documented Arterial Blood Pressure 148/62 Pulmonary Artery Pressure 38/33 Cardiac Output 5.8 Cardiac Index 2.9 - Exam General appearance: The patient is alert, oriented, in no acute distress. HET: Head is normocephalic and atraumatic. Pupils are equal and reactive. Oropharynx is clear without lesions. Dobbhoff presently connected to suction with bilious fluid.. Neck: Supple without lymphadenopathy. Trachea midline. Tracheostomy without drainage or bleeding. Heart: S1 S2. Sternal wound dressing. Lungs: No crackles or wheezes are heard. Abdomen: Soft, nontender, bloated with bowel sounds. No peritoneal signs. No palpable organomegaly or masses. - Labs CBC & Chem 7: 12/29/17 04:20 12/29/17 04:20 Labs: Abnormal Lab Results - Last 24 Hours (Table) 12/29/17 12/29/17 12/29/17 Range/Units 04:20 04:20 05:10 RBC 2.81 L (3.80-5.40) m/uL Hgb 7.2 L (11.4-16.0) gm/dL Hct 24.8 L (34.0-46.0) % MCHC 28.9 L (31.0-37.0) g/dL RDW 19.6 H (11.5-15.5) % ABG pCO2 49 H (35-45) mmHg ABG HCO3 31 H (21-25) mmol/L ABG Total CO2 33 H (19-24) mmol/L ABG O2 Saturation 98.6 H (94-97) % Sodium 148 H (137-145) mmol/L BUN 45 H (7-17) mg/dL Glucose 73 L (74-99) mg/dL POC Glucose (mg/dL) (75-99) mg/dL AST 39 H (14-36) U/L Total Protein 5.6 L (6.3-8.2) g/dL Albumin 2.6 L (3.5-5.0) g/dL 12/29/17 12/29/17 Range/Units 06:21 06:55 RBC (3.80-5.40) m/uL Hgb (11.4-16.0) gm/dL Hct (34.0-46.0) % MCHC (31.0-37.0) g/dL RDW (11.5-15.5) % ABG pCO2 (35-45) mmHg ABG HCO3 (21-25) mmol/L ABG Total CO2 (19-24) mmol/L ABG O2 Saturation (94-97) % Sodium (137-145) mmol/L BUN (7-17) mg/dL Glucose (74-99) mg/dL POC Glucose (mg/dL) 72 L 109 H (75-99) mg/dL AST (14-36) U/L Total Protein (6.3-8.2) g/dL Albumin (3.5-5.0) g/dL Microbiology - Last 24 Hours (Table) 12/15/17 10:40 Acid Fast Bacilli Smear - Final Bronchial Washings - Left Acid Fast Bacilli Culture - Preliminary 12/10/17 10:50 Acid Fast Bacilli Smear - Final Chest Acid Fast Bacilli Culture - Preliminary 12/10/17 10:45 Acid Fast Bacilli Smear - Final Chest Acid Fast Bacilli Culture - Preliminary Assessment and Plan Assessment: Impression: 1. Abdominal distention suspect ileus possible small bowel obstruction without clinical evidence of nausea vomiting presently passing flatus. Morning x-ray show slight improvement from prior exam. Status post recent EGD with Dobbhoff tube insertion tube feeds presently on hold. 2. Status post CABG MVR one month ago gradually recovering. 3. Acute respiratory failure status post tracheostomy. 4. Sternal wound dehiscence. Recommendations: 1. Patient clinically is passing flatus without nausea or vomiting tube feeds are presently on hold. 2. General surgical recommendations appreciated. Continue with Reglan and lactulose. Will provide enema 1 today. Reinitiation of tube feeds per general surgery. 3. Insertion of PEG tube is not planned at this time secondary to increased risk of PEG tube infection; insertion of PEG tube is too close to sternal wound ; presently receiving antibiotics for sternal wound dehiscence status post skin graft reconstruction muscle flap closure surgery. 4. We'll continue to follow closely with you. Assessment and plan a care discussed with Dr. Plummer
[2017-12-29] MEDS ORDERED: FUROSEMIDE 10 MG/ML 4 ML VIAL IV ONE (09:00)
[2017-12-29] MEDS: MVI, ADULT NO.4 WITH VIT K 10 ML, TRACE (CONC-1ML/DOSE) 1 ML in AMIN 3.3%/DEX 9.8%/LIPI... IV SCH ×3 (11:49)
[2017-12-29 12:09] LABS: Cholesterol 80 mg/dL (<200); HDL Cholesterol 20 mg/dL (40-60); LDL Cholesterol,Calculated 34 mg/dL (0-99); Triglycerides 130 mg/dL (<150)
[2017-12-29 12:34] LABS: Glucose,Whole Blood 101 mg/dL (75-99)
--- NOTE | 2017-12-29 12:56 | PN ---
PROGRESS NOTE DATE OF SERVICE: 12/28/2017 A 67-year-old lady with history of mitral valve surgery, complicated by sternal wound dehiscence, is fairly stable from cardiac standpoint. She has respiratory failure and had tracheostomy and she may need a PEG tube placement. PHYSICAL EXAM: She is in sinus rhythm. Blood pressure is normal. Chest exam reveals diminished air entry bilaterally. Heart exam reveals first and second heart sounds. No gallop. Exam of extremities reveals bilateral leg edema with palpable pulses. LABS: Have been reviewed. ASSESSMENT: 1. Coronary artery disease, status post coronary artery bypass grafting. 2. Mitral regurgitation, status post mitral valve replacement. 3. Postoperative atrial fibrillation. 4. Sternal wound dehiscence. PLAN: Patient is doing better from cardiac standpoint. Will continue the current medications. MMODL / IJN: [id number] /
--- NOTE | 2017-12-29 13:11 | PN ---
PROGRESS NOTE Maritza is a 67-year-old lady with history of mitral valve replacement complicated by sternal wound dehiscence and also coronary artery disease. She remains in sinus rhythm. Has not had any further episodes of atrial fibrillation. She is hemodynamically stable, having issues with feeds. She may have TPN. On exam, comfortable at rest. Vital signs are stable. Chest exam reveals diminished air entry bilaterally. Heart exam reveals first and second heart sounds. No gallop. Has a systolic murmur at the left lower sternal border. Abdomen is soft. Examination of the extremities reveals bilateral pitting edema. Peripheral pulses are felt. Labs showed that the hemoglobin is 7.2. Potassium is 3.6. Creatinine is 0.9. ASSESSMENT: 1. Coronary artery disease, status post coronary artery bypass grafting. 2. Mitral regurgitation, status post mitral valve replacement. 3. Respiratory failure, status post tracheostomy. The patient is getting better, stable from cardiac standpoint. We will continue current medications. MMODL / IJN: [id number] /
[2017-12-29] MEDS: BISACODYL 10 MG SUPP RECTAL SCH (13:43)
[2017-12-29] MEDS: MEROPENEM 1 GM in SODIUM CHLORIDE 0.9% 100 ML IVPB SCH (15:51)
--- NOTE | 2017-12-29 16:49 | P.PN ---
Subjective Progress Note Date: 12/29/17 A 67-year-old female patient was being seen in follow-up in the intensive care unit. The patient is postop day #32 following her cardiac surgery. The patient underwent a one-vessel bypass surgery and mitral valve replacement and I 'm seeing her today in follow-up. Events postop were all noted and I was updated by the nursing staff regarding details on her progress. The patient underwent a surgical flap of the sternal wound as the patient had wound dehiscence and infection and she is currently postop day #6. The patient also has a tracheostomy tube in place and the patient is postop day #3 post trach. The previous cultures have indicated Serratia marcescens and the patient remains on IV Merrem. Note that during the course of her ICU stay the patient developed complete left lung collapse and she required bronchoscopy and the sputum has indicated Rachana. She is also on Diflucan. The patient also has a tracheostomy tube in place and the patient is postop day #3 post trach. T This morning, the patient is awake and alert. She is following commands and answering questions. She is an assist-control mode of ventilation. The patient is being given brief trials with pressure support and she initially started tolerating pressure support for one hour then subsequently 2 hours. She is not ready for further weaning or prolonged periods where she is placed on pressure support. Currently she is on a assist-control mode at the rate of 20 with tidal volume 400, and 35% FiO2 with a PEEP of 5. She has a tracheostomy tube which is a Shiley trach tube #8. Surgical wound site on the tracheostomy tube is clean. The patient is not having significant orotracheal secretions. The patient is a bit tachypneic as her abdomen is somewhat distended on today's evaluation. I can't understand that the patient was throwing up throughout the night. Her abdomen is somewhat distended and tympanic. She is producing some loose bowel movements. The patient had a Dobbhoff catheter for enteral feeding and nutritional support. The feeding was stopped this morning. She is not complaining of any abdominal pain however abdomen is distended. On today's chest x-ray there is a large gastric bubble. There is also small bilateral pleural. Effusions. She has underlying cardiomegaly. Sternum stable clean and intact. The HENRI drain in the sternal wound is still in place. Her blood gases from today showed a pH of 7.37 with a pCO2 of 57 and pO2 of 102. Patient continues to be edematous in the upper and lower extremity more so in the legs. The patient is being diuresis with Lasix. The patient is a negative fluid balance of 471 mL over the past 24 hours. The patient is on no pressors. Cardiac rhythm is sinus rhythm. On 12/28/2017 the patient is being seen for a follow-up. The patient is wide awake and alert. She remains on a mechanical ventilator. She is on a assist- control mode of ventilation. The patient has a tracheostomy tube #8 Shiley. The patient is in a rate of 20, tidal volume 400, FiO2 of 35% and a PEEP of 5. Chest x-ray findings are stable. remains distended and tympanic. The patient is an underlying ileus. The tube feeds have been placed on hold. The Dobbhoff is attached to suction. The follow-up abdominal film showed Marked dilation of the small bowel loop and this is consistent with ileus. The patient is currently off tube feeds. Meanwhile, the patient's weaning parameters today at baseline showed a rapid shallow breathing index of 86 with a vital Of 450-480. The patient is not ready for any weaning trials at this point. Meanwhile, we' ll continue supportive care. The patient's wound VAC over the anterior chest has gained approximately 1160 MO's for this current shift. The abdominal wound drainage is quite extensive. It drained approximately 2000 MO's of serosanguineous fluid and over the past 8 hours it drained around 1178 ML's. The patient remains on a combination of antibiotics. The patient is receiving a combination of vancomycin and Merrem. The antibiotic coverage is mainly for sternal wound infection/dehiscence. The wound VAC is been applied to the sternal area. No fever. No leukocytosis and no hypotension. No other complaints otherwise. Hemoglobin is low at 7.0. On 12/30/2007 and I'm seeing this patient for a follow-up. She remains nothing by mouth. Abdomen is less distended compared to yesterday. Dobbhoff is in place. The patient was started on lactulose. She was producing some limited amount of bowel moments which was liquidy. Nevertheless the bowel sounds are very sluggish on today's evaluation. She is in a sitting up position in her bed. She assist-control mode of ventilation and I was able to put on a pressure support of 10 and PEEP of 5 for few hours this morning. Her FiO2 is remains at 35%. She still has a wound VAC over the anterior chest and she also has a drain in her right lower abdominal wall which is draining extensively. The patient remains on the same antibiotic coverage. I came to realize that Merrem was taken off the list accidentally by the computer system and I had to resume the mammogram again in conjunction with vancomycin. The patient will need long-term antibiotic treatment for sternal wound infection. This was again confirmed with infectious disease. The patient's hemoglobin today is at 7.2. The patient has no fever. No chills. No leukocytosis. No altered mentation. His communicating. She is weak and she continues to have some edematous upper and lower extremities. She was started on TPN for nutritional support. General surgeries on the case regarding her abdominal ileus. Objective - Vital Signs Vital signs: Vital Signs Temp 98.1 F 12/29/17 12:00 Pulse 83 12/29/17 15:43 Resp 24 12/29/17 15:00 BP 116/54 12/19/17 10:00 Pulse Ox 99 12/29/17 15:00 Intake & Output 12/28/17 12/29/17 12/29/17 18:59 06:59 18:59 Intake Total 293 150 880 Output Total 1585 1050 1250 Balance -1292 -900 -370 Weight 105.5 kg 105.5 kg Intake: IV 293 150 760 Albumin Human 25% 50 ml 50 50 In Empty Bag 1 bag @ 100 mls/hr IVPB ONCE ONE Rx#: [id number] Dextrose 5%-0.45% NaCl 1, 110 120 80 000 ml @ 10 mls/hr IV . Q24H [facility] Rx#:[id number] Fluconazole in NaCl,Iso- 100 100 Osm 200 mg In Saline 1 100ml.bag @ 100 mls/hr IVPB DAILY [facility]E Rx#: [id number] Mvi, Adult No.4 with Vit 256 K 10 ml Trace (Conc-1Ml/ Dose) 1 ml In Foote 3.3%/ Dex 9.8%/Lipid/Lytes 1, 540 ml @ 64 mls/hr IV . Q24H [facility]LE[facility] Rx#:[id number] Pressure Bag 33 30 24 Vancomycin 1,500 mg In 250 Sodium Chloride 0.9% 250 ml @ 125 mls/hr IVPB Q36H [facility] Rx#:[id number] Oral 120 Output: Drainage 580 695 200 Medial Chest Incision - 100 Woundvac Right Abdomen 480 695 200 Urine [id number] Other: Voiding Method Indwelling Catheter Indwelling Catheter Indwelling Catheter # Bowel Movements 1 ABP, PAP, CO, CI - Last Documented Arterial Blood Pressure 155/72 Pulmonary Artery Pressure 38/33 Cardiac Output 5.8 Cardiac Index 2.9 - Exam - Constitutional General appearance: Present: cooperative, no acute distress, obese, the patient has a #8 tracheostomy Shiley trach tube in place. She is synchronous with the mechanical ventilator. She is awake and interactive. - Neck Details: Neck is supple, no JVD, no lymphadenopathy. Tracheostomy tube is midline and intact, sutures in place. - Respiratory Details: Lungs sounds essentially diminished throughout. Respirations are symmetrical and nonlabored with mechanical ventilator support. Oxygen saturation are 99% with current ventilator settings. Current ventilator settings is an assist- control: Cycle ventilator - Cardiovascular Details: Regular rhythm and rate. S1 and S2 present, negative for S3, gallop or murmur. Chest with open wound, postoperative muscle flap performed. The patient has a one leg applied to the anterior chest Dressing with scant serous drainage. Generalized anasarca with weeping. Vance wraps in place from toes to thighs to bilateral lower extremities. Knee-high sequential compression devices in place to her bilateral lower extremities. Left brachial PICC line in place and functioning. Right brachial arterial line in place and functioning. The patient's wound VAC has been down 170 ML's for yesterday and the right abdominal HENRI drain has drained around 325 mL for yesterday. The drainage is less compared to the day before. - Gastrointestinal Gastrointestinal Comment(s): Abdomen is soft, yet this is distended and tympanic. The patient had diminished bowel sounds. No direct tenderness but no rebound tenderness. No guarding. Abdominal wound is dry clean and intact. The patient has a HENRI drain in the lower abdominal wall which is draining quite extensively. The drainage is serous segments in nature. - Genitourinary Genitourinary Comment(s): Mason catheter for accurate I&O. Draining clear yellow urine. - Integumentary Integumentary Comment(s): Skin is warm and dry. No clubbing or cyanosis. Anasarca with scattered areas of blistering and weeping thin serous drainage. Pressure ulcerations to her buttocks with local wound care. Ulceration to her right wrist area with dressing in place with scant serous drainage. Dressing in place to her chest wound. - Neurologic Neurologic Comment(s): Alert and following verbal commands. Nodding her head yes and no appropriately to questions. Moving all 4 extremities appropriately with weak movements. - Musculoskeletal Musculoskeletal: Present: generalized weakness, strength equal bilaterally - Psychiatric Psychiatric Comment(s): Psychiatric: Present: intact judgment & insight - Labs CBC & Chem 7: 12/29/17 04:20 12/29/17 04:20 Labs: Abnormal Lab Results - Last 24 Hours (Table) 12/29/17 12/29/17 12/29/17 Range/Units 04:20 04:20 05:10 RBC 2.81 L (3.80-5.40) m/uL Hgb 7.2 L (11.4-16.0) gm/dL Hct 24.8 L (34.0-46.0) % MCHC 28.9 L (31.0-37.0) g/dL RDW 19.6 H (11.5-15.5) % ABG pCO2 49 H (35-45) mmHg ABG HCO3 31 H (21-25) mmol/L ABG Total CO2 33 H (19-24) mmol/L ABG O2 Saturation 98.6 H (94-97) % Sodium 148 H (137-145) mmol/L BUN 45 H (7-17) mg/dL Glucose 73 L (74-99) mg/dL POC Glucose (mg/dL) (75-99) mg/dL AST 39 H (14-36) U/L Total Protein 5.6 L (6.3-8.2) g/dL Albumin 2.6 L (3.5-5.0) g/dL HDL Cholesterol (40-60) mg/dL 12/29/17 12/29/17 12/29/17 Range/Units 06:21 06:55 11:45 RBC (3.80-5.40) m/uL Hgb (11.4-16.0) gm/dL Hct (34.0-46.0) % MCHC (31.0-37.0) g/dL RDW (11.5-15.5) % ABG pCO2 (35-45) mmHg ABG HCO3 (21-25) mmol/L ABG Total CO2 (19-24) mmol/L ABG O2 Saturation (94-97) % Sodium (137-145) mmol/L BUN (7-17) mg/dL Glucose (74-99) mg/dL POC Glucose (mg/dL) 72 L 109 H (75-99) mg/dL AST (14-36) U/L Total Protein (6.3-8.2) g/dL Albumin (3.5-5.0) g/dL HDL Cholesterol 20 L (40-60) mg/dL 12/29/17 Range/Units 12:33 RBC (3.80-5.40) m/uL Hgb (11.4-16.0) gm/dL Hct (34.0-46.0) % MCHC (31.0-37.0) g/dL RDW (11.5-15.5) % ABG pCO2 (35-45) mmHg ABG HCO3 (21-25) mmol/L ABG Total CO2 (19-24) mmol/L ABG O2 Saturation (94-97) % Sodium (137-145) mmol/L BUN (7-17) mg/dL Glucose (74-99) mg/dL POC Glucose (mg/dL) 101 H (75-99) mg/dL AST (14-36) U/L Total Protein (6.3-8.2) g/dL Albumin (3.5-5.0) g/dL HDL Cholesterol (40-60) mg/dL Assessment and Plan Plan: Assessment 1 coronary artery bypass surgery with single-vessel bypass and mitral valve replacement/bioprosthetic valve. The patient is postop day #34 2 sternal wound infection with Serratia marcescens with subsequent dehiscence. The patient underwent wound debridement with subsequent muscle flap and the patient is postop day #8. The patient remains on a combination of Merrem and vancomycin. The wound VAC is still in place and the patient is still having considerable amount of drainage and odor 170 mL for yesterday and another 525 ML 's for today. 3 prolonged ventilator dependent respiratory failure, status post tracheostomy tube insertion and the patient is postop day #5. Patient remains on assist control mode of ventilation and she is able to tolerate few hours of pressure support mode of ventilation with a pressure support of 10 and PEEP of 5. 4 acute on chronic respiratory failure, multifactorial. The patient's sternal wound and the muscle flap is healing for now. She is weak and she is not ready for further weaning based on her daily parameters. Doubt superimposed pneumonia at this point 5 increased edema both upper and lower extremities, improving 6 paroxysmal atrial fibrillation current rhythm is sinus 7 peripheral vascular disease 8 left subclavian artery stenosis status post insertion of an endovascular stent 9 anemia, a expected outcome of prolonged ICU stay and multiple surgeries 10 ileus, abdominal distention with increased emesis. The patient is currently off tube feeds. The patient has a Dobbhoff which is currently to suction. The patient is receiving lactulose. The patient will be started also on TPN today. 11 left lung collapse status post bronchoscopy and therapeutic it was suctioning. Patient has Rachana within the sputum currently on Diflucan 12 hypertension 13 hyperlipidemia 14 anemia multifactorial with a hemoglobin level of 7.2 PLAN Continue the patient on vent support. As mentioned we'll give the patient brief periods of pressure support mode of ventilation. It for the most which will be kept on assist control mode of ventilation. Monitor the output from the wound VAC and the HENRI drain. Continue same antibiotic coverage including a combination of vancomycin and Merrem. Monitor the abdominal ileus and initiated the patient on TPN for nutritional support. Monitor hemoglobin which is at 7.2 on today's evaluation. Blood gases was noted and the patient is adequate oxygenation and ventilation. She is weak and she is receiving physical therapy. This will be a prolonged treatment and prolonged recovery. Meanwhile the priority for now is to recover from this ileus. Once recovered, I would recommend insertion of a PEG tube for enteral feeding and nutritional support. Tracheostomy tube in place. Patient is awake and alert. She is calm indicating. No signs of septicemia. We'll continue to follow. Prognosis poor baseline above-mentioned comorbidities.
[2017-12-29 17:49] LABS: Glucose,Whole Blood 114 mg/dL (75-99)
[2017-12-29] MEDS: ESCITALOPRAM 10 MG TAB PO SCH (20:12)
[2017-12-29] MEDS: SENNOSIDES-DOCUSATE SODIUM 1 EACH TAB PO SCH (20:18)
[2017-12-29] MEDS: HYDROcodone/APAP 5-325MG 1 EACH TAB PO PRN (20:48)
[2017-12-29] MEDS: ALPRAZolam 0.25 MG TAB PO PRN (22:23)
[2017-12-29] MEDS ORDERED: ALBUMIN HUMAN 5% 250 ML in EMPTY BAG 1 BAG IVPB STA (23:11)
--- NOTE | 2017-12-29 23:18 | P.PN ---
Subjective Progress Note Date: 12/29/17 Principal diagnosis: Sternal wound dehiscence Pleasant 67-year-old female who has an extensive past medical history who is now 14 days postoperative from her open heart procedure it which point in time a mitral valve placement occurred, reverse saphenous vein coronary artery bypass grafting 1 to obtuse marginal, Maze procedure and ligation of the left atrial appendage all occurred interoperatively left ventricular wall tear occurred and was repaired. The patient has a known history of multiple medical troubles before her surgery that included her obesity, COPD and marked deconditioning. Patient has had difficulties recently that included urinary tract infection with E. coli and Serratia and has been treated with intravenous antibiotic therapy with Zosyn. She was having some improvement but then developed dehiscence of her sternal wound and there are plans for surgical debridement tomorrow wound culture showing gram-negative bacilli and with at the infectious diseases consultation was requested. The patient continues to have significant respiratory difficulties and is currently on BiPAP for support. Postoperatively the patient was hemodynamically unstable which made even turning of the patient not possible which has resulted in unavoidable areas of skin breakdown, that are now treatable given her improvement 12/10/2017 reveals the patient to be postoperative from the sternal wound debridement. The surgical note as well as discussion with the surgical team reveals evidence of poor bone quality and all of the sternal wires had pulled through her bony areas. Negative pressure therapy is in place. She is tolerating this well. Plastic surgery consult has been requested for reconstruction of her chest in the near future. Gram-negative bacilli growing from the sternal wound. She is quite comfortable after procedure, chest tube was placed of the left cavity and this is improved some left lung function and she seems less short of breath. The daughter is present and her questions were answered. 12/11/2017 reveals the patient to have had some respiratory distress today and is back on BiPAP at this time. She relates that her pain is under much significant control. Been no other new acute complaints are being made. 12/13/2017 the patient remains in the ICU she is currently on BiPAP but relates that she is quite comfortable. We will work with the nursing staff to change her VAC dressing at this time. await the plastic surgery timeline. 12/15/2017 reveals the patient to remain in intensive care unit, her status has worsened and that she developed flash pulmonary edema and respiratory failure requiring reintubation sedation mechanical ventilation. She underwent bronchoscopy today for removal of mucous plugs and to help with the collapsed left lower lobe. The patient has require some vasopressor support but is more stable this afternoon than earlier. She is sedated and comfortable. She has significant decline of hemoglobin is 7.6. Anticoagulation was held. Is being closely monitored by surgery and they await the plastic surgery intervention. 12/16/2017 cases briefly discussed with the cardiothoracic nurse practitioner in that the wound VAC is being changed today. It is unchanged with no difficulties. No further bleeding is noted. Plastic surgery evaluation apparently will occur tomorrow so the surgical plan can be devised. 12/20/2017 since last visit current thoracic has again change the wound VAC without difficulties. She tolerated it well. She remains on the ventilator at this point in time, does not appear to have any plans for weaning because she will have her plastic closure over open chest tomorrow. She's been hemodynamically stable with intermittent atrial flutter. No significant changes of oxygen requirements, drainage from the wound VAC is minimal as is drainage from her chest tube. 12/21/2017 patient is status post the partial plastic closure of her sternal wound. Complete cardiac coverage occurred but only partial closure was possible. Oxygen requirements are improving postoperative and is being closely watched for any further blood loss anemia. 12/23/2017 reveals the patient to be extubated on BiPAP. She is comfortable with her pain level is about a 2. Shortness of breath is not severe. She is unable to eat and a Dobbhoff will be placed a bit later today to help her with nutritional status to help her recovery. The current situation is discussed with the cardiothoracic surgeon team 12/24/2017 reveals evidence of the changes status in that she has now had a tracheostomy applied due to her chronic respiratory failure. Cardiothoracic surgery has changed the dressing today. Patient is comfortable after her surgery. Denies new acute discomforts. 12/25/2017 reveals that the patient is doing well with her tracheostomy. She is on 35% FiO2 with excellent saturations. The patient relates that she is comfortable her pain level is no more than a 4. She is receiving feedings via the Dobbhoff is tolerating that well but is having a few soft stools without swapnil diarrhea. 12/27/2017 patient remained stable after tracheostomy. With pain level is no more than a 2 at this point in time. Feedings via the Dobbhoff are going well. The wound VAC dressing was changed today without difficulties. Leukocytosis is improving. No hypotension. 12/28/2017. Overall the patient has been stable and that her pulmonary status without acute change. Doing well with the tracheostomy. Patient however developed significant abdominal distention with a tympanic abdomen. Abdominal x -ray revealed evidence of ileus. She's been seen by general surgery and they will determine if she needs an NG tube based on x-rays. She apparently is more comfortable this evening that she was earlier in the day. Nursing staff relates no fevers. 12/29/2017 patient is stable. Not having new acute difficulties. Is noted did have a pressure ulceration to the posterior aspect of the scalp that is being treated with a fall offloading cushion. Patient is actually quite comfortable today. Her ileus is starting to improve. Surgery he has no plans for surgical intervention into the abdomen. Is tolerating TPN. Objective - Vital Signs Vital signs: Vital Signs Temp 98.6 F 12/29/17 20:00 Pulse 121 H 12/29/17 21:00 Resp 16 12/29/17 21:00 BP 116/54 12/19/17 10:00 Pulse Ox 100 12/29/17 21:00 Intake & Output 12/29/17 12/29/17 12/30/17 06:59 18:59 06:59 Intake Total 150 1348 231 Output Total 1050 1830 335 Balance -900 -482 -104 Weight 105.5 kg 105.5 kg Intake: IV 150 1168 231 Albumin Human 25% 50 ml 50 In Empty Bag 1 bag @ 100 mls/hr IVPB ONCE ONE Rx#: [id number] Dextrose 5%-0.45% NaCl 1, 120 120 30 000 ml @ 10 mls/hr IV . Q24H [facility] Rx#:[id number] Fluconazole in NaCl,Iso- 100 Osm 200 mg In Saline 1 100ml.bag @ 100 mls/hr IVPB DAILY [facility] Rx#: [id number] Meropenem 1 gm In Sodium 100 Chloride 0.9% 100 ml @ 200 mls/hr IVPB Q8HR [facility] Rx#:[id number] Mvi, Adult No.4 with Vit 512 192 K 10 ml Trace (Conc-1Ml/ Dose) 1 ml In Foote 3.3%/ Dex 9.8%/Lipid/Lytes 1, 540 ml @ 64 mls/hr IV . Q24H A[facility] Rx#:[id number] Pressure Bag 30 36 9 Vancomycin 1,500 mg In 250 Sodium Chloride 0.9% 250 ml @ 125 mls/hr IVPB Q36H [facility] Rx#:[id number] Oral 180 Output: Drainage 695 550 255 Right Abdomen 695 550 255 Urine 355 1280 80 Other: Voiding Method Indwelling Catheter Indwelling Catheter Indwelling Catheter # Bowel Movements 1 ABP, PAP, CO, CI - Last Documented Arterial Blood Pressure 107/66 Pulmonary Artery Pressure 38/33 Cardiac Output 5.8 Cardiac Index 2.9 - Exam Obese 67-year-old woman who is now extubated on BiPAP HEENT: Anicteric conjunctiva are pink and moist nasal mucosa grossly intact without significant lesions, there is no thrush. Oral mucosa is dry but no swapnil lesions could be seen Neck: The neck is supple without significant lymphadenopathy or thyromegaly. Tracheostomy intact without bleeding there is evidence of the posterior scalp lesion please refer to the nursing photography. Lungs: Symmetrical air entry is noted. There is scattered crackles but no swapnil bronchial sounds Heart: Irregular with an audible S1 and S2 soft S4 no audible murmur no click or rub Chest: The patient's mid sternotomy incision is now covered with a postoperative dressing from the plastic closure which is reported to be a partial flap closure Abdomen: Obese, Positive bowel sounds soft and nontender without palpable masses or organomegaly. There was no guarding or rebound. Extremities: The upper and lower extremities have evidence of edema harvest site is intact there is some bruising that is noted especially on the left groin area. IV sites are intact. Skin: With the nursing staff the buttocks pressure ulcerations are evaluated which are showing improvement. The ulceration on the skin fold above her buttocks is also evaluated and appears to be improving. Also improvement of the ulceration to the right wrist area. Skin however is now having some blistering due to her hypoalbuminemia and excessive volume. Sternal wound dressing is dry and intact. Neuro: Comfortable at this time pain level is 4, no acute changes neurologically - Labs CBC & Chem 7: 12/29/17 04:20 12/29/17 04:20 Labs: Abnormal Lab Results - Last 24 Hours (Table) 12/29/17 12/29/17 12/29/17 Range/Units 04:20 04:20 05:10 RBC 2.81 L (3.80-5.40) m/uL Hgb 7.2 L (11.4-16.0) gm/dL Hct 24.8 L (34.0-46.0) % MCHC 28.9 L (31.0-37.0) g/dL RDW 19.6 H (11.5-15.5) % ABG pCO2 49 H (35-45) mmHg ABG HCO3 31 H (21-25) mmol/L ABG Total CO2 33 H (19-24) mmol/L ABG O2 Saturation 98.6 H (94-97) % Sodium 148 H (137-145) mmol/L BUN 45 H (7-17) mg/dL Glucose 73 L (74-99) mg/dL POC Glucose (mg/dL) (75-99) mg/dL AST 39 H (14-36) U/L Total Protein 5.6 L (6.3-8.2) g/dL Albumin 2.6 L (3.5-5.0) g/dL HDL Cholesterol (40-60) mg/dL 12/29/17 12/29/17 12/29/17 Range/Units 06:21 06:55 11:45 RBC (3.80-5.40) m/uL Hgb (11.4-16.0) gm/dL Hct (34.0-46.0) % MCHC (31.0-37.0) g/dL RDW (11.5-15.5) % ABG pCO2 (35-45) mmHg ABG HCO3 (21-25) mmol/L ABG Total CO2 (19-24) mmol/L ABG O2 Saturation (94-97) % Sodium (137-145) mmol/L BUN (7-17) mg/dL Glucose (74-99) mg/dL POC Glucose (mg/dL) 72 L 109 H (75-99) mg/dL AST (14-36) U/L Total Protein (6.3-8.2) g/dL Albumin (3.5-5.0) g/dL HDL Cholesterol 20 L (40-60) mg/dL 12/29/17 12/29/17 Range/Units 12:33 17:48 RBC (3.80-5.40) m/uL Hgb (11.4-16.0) gm/dL Hct (34.0-46.0) % MCHC (31.0-37.0) g/dL RDW (11.5-15.5) % ABG pCO2 (35-45) mmHg ABG HCO3 (21-25) mmol/L ABG Total CO2 (19-24) mmol/L ABG O2 Saturation (94-97) % Sodium (137-145) mmol/L BUN (7-17) mg/dL Glucose (74-99) mg/dL POC Glucose (mg/dL) 101 H 114 H (75-99) mg/dL AST (14-36) U/L Total Protein (6.3-8.2) g/dL Albumin (3.5-5.0) g/dL HDL Cholesterol (40-60) mg/dL Laboratory Results WBC 8.7 k/uL (3.8-10.6) 12/29/17 04:20 RBC 2.81 m/uL (3.80-5.40) L 12/29/17 04:20 Hgb 7.2 gm/dL (11.4-16.0) L 12/29/17 04:20 Hct 24.8 % (34.0-46.0) L 12/29/17 04:20 MCV 88.3 fL (80.0-100.0) 12/29/17 04:20 MCH 25.6 pg (25.0-35.0) 12/29/17 04:20 MCHC 28.9 g/dL (31.0-37.0) L 12/29/17 04:20 RDW 19.6 % (11.5-15.5) H 12/29/17 04:20 Plt Count 390 k/uL (150-450) 12/29/17 04:20 Neutrophils % 87 % 12/27/17 05:10 Neutrophils % (Manual) 98 % 12/05/17 04:25 Lymphocytes % 5 % 12/27/17 05:10 Lymphocytes % (Manual) 1 % 12/05/17 04:25 Monocytes % 4 % 12/27/17 05:10 Monocytes % (Manual) 1 % 12/05/17 04:25 Eosinophils % 2 % 12/27/17 05:10 Basophils % 0 % 12/27/17 05:10 Myelocytes % 1 % 12/03/17 04:15 Neutrophils # 9.3 k/uL (1.3-7.7) H 12/27/17 05:10 Neutrophils # (Manual) 26.95 k/uL (1.3-7.7) H 12/05/17 04:25 Lymphocytes # 0.5 k/uL (1.0-4.8) L 12/27/17 05:10 Lymphocytes # (Manual) 0.28 k/uL (1.0-4.8) L 12/05/17 04:25 Monocytes # 0.4 k/uL (0-1.0) 12/27/17 05:10 Monocytes # (Manual) 0.28 k/uL (0-1.0) 12/05/17 04:25 Eosinophils # 0.2 k/uL (0-0.7) 12/27/17 05:10 Basophils # 0.0 k/uL (0-0.2) 12/27/17 05:10 Myelocytes # (Manual) 0.17 k/uL (0) H 12/03/17 04:15 Nucleated RBCs 0 /100 WBC (0-0) 12/05/17 04:25 Manual Slide Review Performed 12/05/17 04:25 Polychromasia Present 12/03/17 04:15 Hypochromasia Marked 12/29/17 04:20 Poikilocytosis Slight 12/29/17 04:20 Anisocytosis Slight 12/29/17 04:20 Microcytosis Slight 12/17/17 04:45 Target Cells Present 12/03/17 04:15 PT 10.8 sec (9.0-12.0) 12/21/17 04:50 INR 1.1 (<1.2) 12/21/17 04:50 APTT 23.9 sec (22.0-30.0) 12/21/17 04:50 Fibrinogen 334 mg/dL (200-500) 11/26/17 04:22 Sample Site [place] 12/29/17 05:10 ABG pH 7.42 (7.35-7.45) 12/29/17 05:10 ABG pCO2 49 mmHg (35-45) H 12/29/17 05:10 ABG pO2 103 mmHg (83-108) 12/29/17 05:10 ABG HCO3 31 mmol/L (21-25) H 12/29/17 05:10 ABG Total CO2 33 mmol/L (19-24) H 12/29/17 05:10 ABG O2 Saturation 98.6 % (94-97) H 12/29/17 05:10 ABG Base Excess 6.6 mmol/L 12/29/17 05:10 ABG Hematocrit 24 % (34.0-46.0) L 11/25/17 17:37 Robbi Test Yes 12/29/17 05:10 ABG Sodium 144 mmol/L (135-146) 11/25/17 17:37 ABG Potassium 3.8 mmol/L (3.4-4.5) 11/25/17 17:37 ABG Ionized Calcium 4.0 mg/dL (4.5-5.3) L 11/25/17 17:37 ABG Glucose 139 mg/dL (75-99) H 11/25/17 17:37 ABG Lactic Acid 2.8 mmol/L (0.5-1.6) H* 11/25/17 17:37 Hemoglobin 7.8 gm/dL (11.4-16.0) L 11/25/17 17:37 FiO2 35 % 12/29/17 05:10 Sodium 148 mmol/L (137-145) H 12/29/17 04:20 Potassium 3.6 mmol/L (3.5-5.1) 12/29/17 04:20 Chloride 105 mmol/L (98-107) 12/29/17 04:20 Carbon Dioxide 30 mmol/L (22-30) 12/29/17 04:20 Anion Gap 13 mmol/L 12/29/17 04:20 BUN 45 mg/dL (7-17) H 12/29/17 04:20 Creatinine 0.90 mg/dL (0.52-1.04) 12/29/17 04:20 Est GFR (MDRD) Af Amer >60 (>60 ml/min/1.73 sqM) 12/07/17 04:00 Est GFR (MDRD) Non-Af >60 (>60 ml/min/1.73 sqM) 12/07/17 04:00 Est GFR (CKD-EPI)AfAm 77 (>60 ml/min/1.73 sqM) 12/29/17 04:20 Est GFR (CKD-EPI)NonAf 67 (>60 ml/min/1.73 sqM) 12/29/17 04:20 Glucose 73 mg/dL (74-99) L 12/29/17 04:20 POC Glucose (mg/dL) 114 mg/dL (75-99) H 12/29/17 17:48 POC Glu Square Cutter Codie Caban 12/29/17 17:48 Calcium 9.1 mg/dL (8.4-10.2) 12/29/17 04:20 Ionized Calcium Bruce 4.7 mg/dL (4.5-5.3) 12/11/17 15:45 Phosphorus 3.9 mg/dL (2.5-4.5) 12/29/17 04:20 Magnesium 2.2 mg/dL (1.6-2.3) 12/29/17 04:20 Total Bilirubin 0.6 mg/dL (0.2-1.3) 12/29/17 04:20 AST 39 U/L (14-36) H 12/29/17 04:20 ALT 37 U/L (9-52) 12/29/17 04:20 Alkaline Phosphatase 90 U/L (38-126) 12/29/17 04:20 Total Protein 5.6 g/dL (6.3-8.2) L 12/29/17 04:20 Albumin 2.6 g/dL (3.5-5.0) L 12/29/17 04:20 Prealbumin 7.0 mg/dL (18.0-42.0) L 12/27/17 05:10 Triglycerides 130 mg/dL (<150) 12/29/17 11:45 Cholesterol 80 mg/dL (<200) 12/29/17 11:45 LDL Cholesterol, Calc 34 mg/dL (0-99) 12/29/17 11:45 HDL Cholesterol 20 mg/dL (40-60) L 12/29/17 11:45 Arterial Blood Potassium 3.8 mmol/L (3.4-4.5) 11/25/17 17:37 Arterial Blood Glucose 139 mg/dL (75-99) H 11/25/17 17:37 Urine Color Yellow 12/04/17 10:00 Urine Appearance Cloudy (Clear) H 12/04/17 10:00 Urine pH 5.5 (5.0-8.0) 12/04/17 10:00 Ur Specific [place] 1.015 (1.001-1.035) 12/04/17 10:00 Urine Protein Trace (Negative) H 12/04/17 10:00 Urine Glucose (UA) Negative (Negative) 12/04/17 10:00 Urine Ketones Negative (Negative) 12/04/17 10:00 Urine Blood Negative (Negative) 12/04/17 10:00 Urine Nitrite Negative (Negative) 12/04/17 10:00 Urine Bilirubin Negative (Negative) 12/04/17 10:00 Urine Urobilinogen <2.0 mg/dL (<2.0) 12/04/17 10:00 Ur Leukocyte Esterase Negative (Negative) 12/04/17 10:00 Urine RBC 7 /hpf (0-5) H 12/04/17 10:00 Urine WBC 1 /hpf (0-5) 12/04/17 10:00 Ur Squamous Epith Cells 8 /hpf (0-4) H 12/04/17 10:00 Urine Bacteria Occasional /hpf (None) H 12/04/17 10:00 Urine Mucus Rare /hpf (None) H 12/04/17 10:00 Fluid Source Bronchial Wash 12/15/17 10:40 Fluid Color Colorless 12/15/17 10:40 Fluid Appearance Cloudy 12/15/17 10:40 Fluid RBC 150 /uL 12/15/17 10:40 Fluid Nucleated Cells 6900 /uL 12/15/17 10:40 Fluid Polynuclear WBCs 95 % 12/15/17 10:40 Fluid Mononuclear WBCs 5 % 12/15/17 10:40 Vancomycin Trough 30.0 ug/mL 12/27/17 11:36 Random Vancomycin 21.2 ug/mL 12/16/17 04:15 Heparin-Ind Plt Ab Scrn 0.231 OD (<0.4) 11/29/17 04:50 Virus Source See Below 12/15/17 10:40 Viral Test See Below 12/15/17 10:40 Virus Analysis Interp See Below 12/15/17 10:40 Blood Type A Positive 12/21/17 11:28 Blood Type Recheck No 12/21/17 11:28 Antibody Screen NEGATIVE 12/21/17 11:28 Crossmatch See Detail 12/14/17 10:10 Transfuse Cryo [id number] 11/26/17 00:39 Transfuse Plasma 12/15/2017 12/15/17 05:51 Transfuse Platelets [id number] 11/25/17 14:55 Spec Expiration Date 12/24/2017 - 2328 12/21/17 11:28 Microbiology 12/15/17 10:40 Bronchial Washings - Left Acid Fast Bacilli Smear - Final 12/15/17 10:40 Bronchial Washings - Left Acid Fast Bacilli Culture - Preliminary 12/10/17 10:50 Chest Acid Fast Bacilli Smear - Final 12/10/17 10:50 Chest Acid Fast Bacilli Culture - Preliminary 12/10/17 10:45 Chest Acid Fast Bacilli Smear - Final 12/10/17 10:45 Chest Acid Fast Bacilli Culture - Preliminary 12/10/17 10:40 Chest Fungal Culture - Preliminary 12/10/17 10:45 Chest Fungal Culture - Preliminary 12/10/17 10:50 Chest Fungal Culture - Preliminary 12/24/17 11:30 Catheter Tip Catheter Tip Culture - Final 12/15/17 10:40 Bronchial Washings - Left Fungal Culture - Preliminary Rachana albicans 12/15/17 10:40 Bronchial Washings - Left Gram Stain - Final 12/15/17 10:40 Bronchial Washings - Left Bronchial Washings Culture - Final Rachana albicans 12/14/17 21:30 Sputum Gram Stain - Final 12/14/17 21:30 Sputum Sputum Culture - Final Rachana albicans 12/10/17 10:50 Chest Anaerobic Culture - Final 12/10/17 10:40 Chest Anaerobic Culture - Final 12/10/17 10:45 Chest Anaerobic Culture - Final 12/13/17 05:27 Urine,Catheterized Urine Culture - Final 12/10/17 10:40 Chest Gram Stain - Final 12/10/17 10:40 Chest Wound Culture - Final Serratia marcescens 12/10/17 10:45 Chest Gram Stain - Final 12/10/17 10:45 Chest Tissue Culture - Final Serratia marcescens 12/10/17 10:50 Chest Gram Stain - Final 12/10/17 10:50 Chest Tissue Culture - Final Serratia marcescens 12/07/17 15:40 Chest Gram Stain - Final 12/07/17 15:40 Chest Wound Culture - Final Serratia marcescens 12/04/17 10:00 Urine,Voided Urine Culture - Final Escherichia coli Serratia marcescens 11/26/17 04:00 Sputum Gram Stain - Final 11/26/17 04:00 Sputum Sputum Culture - Final Assessment and Plan (1) Severe mitral regurgitation Current Visit: Yes Status: Chronic Code(s): I34.0 - NONRHEUMATIC MITRAL ( VALVE) INSUFFICIENCY SNOMED Code(s): 94637420 (2) CAD (coronary artery disease) Current Visit: Yes Status: Chronic Code(s): I25.10 - ATHSCL HEART DISEASE OF [place] CORONARY ARTERY W/O ANG PCTRS SNOMED Code(s): 75127420 (3) Acute blood loss as cause of postoperative anemia Current Visit: Yes Status: Acute Code(s): D62 - ACUTE POSTHEMORRHAGIC ANEMIA SNOMED Code(s): 35684359972345276 (4) Pressure ulcer of contiguous region involving back and buttock, stage 3 Current Visit: Yes Status: Acute Code(s): L89.43 - PRESSR ULCER OF CONTIG SITE OF BACK, BUTTOCK AND HIP, STG 3 SNOMED Code(s): 828582619 (5) Sternal wound dehiscence Narrative/Plan: 67-year-old woman presents to Hospital for treatment of her severe mitral irritation. Underwent mitral valve replacement, coronary artery bypass grafting 1, Maze procedure and clipping of the left atrial appendage with a complication of the left ventricular wall tear. The patient has had a very protracted recovery she is now day 14 post operative and is still having difficulty with her respiratory status requiring BiPAP. The patient's nutritional status and underlying comorbidities have complicated her care. She now has evidence of the sternal dehiscence with evidence of gram negatives bacilli being found at the site. There is evidence of urinary tract infection with E. coli and Serratia. This Serratia species is somewhat resistant and consequently we'll alter the current antimicrobial therapy from Zosyn to meropenem to ensure coverage for other potential pathogens that are resistant that could be in the sternal wound while we await cultures. The patient will be going to the operating room tomorrow for debridement and wound VAC placement. The cultures were further direct the overall course of antibiotics. Urinary infection appears to be doing somewhat better. The patient fortunately is comfortable and doing well with her BiPAP. 12/10/2017 the patient is status post surgery and actually is feeling a bit better this afternoon than yesterday. Her pain is quite well controlled. She is not on BiPAP. She is less short of breath. Wound culture has verified the Serratia marcescens to the sternal wound. We'll constantly continue the current course of meropenem due to some of the resistance patterns or seeing with the species. Continue local care at this point time with the negative pressure system to the sternal wound. The plastic surgery consult is being requested for reconstruction of her chest. She will require a course of intravenous antibiotic therapy given her complex infection. Dual-lumen PICC is already in place. We'll repeat the discharge planners as to her place of rehab. 12/11/2017 the patient is metabolically stable but is having difficulties with her respiratory status and is now back on BiPAP which has been intermittent over the last multiple days. Negative pressure therapy remains intact and the sternum and we await the plastic surgery intervention. 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 Continue supportive care, and nutritional supplements as possible to improve for tissue healing. 12/13/2017 patient is on BiPAP. She is comfortable at this time. Receiving her intravenous antibiotic therapy without difficulties. At this time the surgeon present in a sterile fashion the wound VAC is removed. Surgeon evaluates and then the wound VAC is reapplied with 2 of the white foam, periwound protected with DuoDERM no difficulty with the seal. Merrem continues. 12/15/2017 the patient has had marked worsening of her status in that she had respiratory failure requiring reintubation and mechanical ventilation. She is now sedated and comfortable but has had some hemodynamic instability and is now back on vasopressor therapy. Bronchoscopy is performed and suctioning of mucous plugs as allowed some improvement of her pulmonary status. Further cultures are process. Meropenem and vancomycin continue for the isolated Serratia and concerns for resistant gram-positive infection at this time. Plastic surgery evaluation is in process and surgical plans for later this week appear to be possible. 12/16/2017 reveals the patient to be stable from the last 24 hours. Her ventilatory settings are similar. She's currently not on vasopressor therapy. She is tolerating current antibiotic therapy well with no difficulties with rash and diarrhea or marked changes of her hematological parameters. She's had no further active bleeding. Sputum culture with gram-positive cocci seen vancomycin was added we await final cultures. 12/20/2017 patient remained stable and is being prepped for her sternal reconstruction surgery tomorrow. She's not on vasopressor therapy, and vent settings are stable. Most recent bronchoscopy showed mucous plug no evidence of any new pathogens except yeast was found likely from upper airways. Fluconazole was added given her significant risks, although fungal pneumonia is not occurring at this time. At the time of reconstruction repeat samplings from her sternum will be helpful to help direct the course of antibiotic therapy , pathology and culture of the sternum will be helpful. Remains on the meropenem and vancomycin at this time. 12/21/2017 the patient is status post the sternal reconstruction with muscle flap, reportedly is only a partial closure at this time. However visit. The cardiac structure is completely covered. The patient is showing improvement in her cardiopulmonary status today. No active bleeding is noted. She is tolerating current antibiotic therapy well with meropenem and vancomycin. Await final culture and pathological data to help derive the course of her antibiotic therapy 12/23/2017 reveals the patient to be improved, she has been extubated and tolerating BiPAP well. The case is discussed with the cardiothoracic surgeon. The muscle flap was then performed and there is a biological skin substitute over the flap. She related that the plastic surgeon would not allow a wound VAC to be placed for approximately 10 days after the surgery. We will monitor. Continue current antibiotic therapy planning a multiweek course of therapy for the complex sternal wound infection. 12/24/2017 reveals the patient to have further improvement that she has had a tracheostomy placed. This will hopefully help her long-term weaning situation and also help with the nutritional difficulties. As she has improvement of her status hopefully the significant difference with her skin from the edema low albumin and blistering will improve. Receiving extensive antibiotic therapy for the sternal wound dehiscence will continue with the meropenem and vancomycin at this time. 12/25/2017 reveals the patient to have some improvement in the last 24 hours. She's doing well with a tracheostomy and is on 35% FiO2. Pain control is well at this point in time. Her spitting edema seems to be slightly improving and does not have as many blisters that she was having. Still does have anasarca but appears to be a bit less tight than she was a day ago. Her wounds are improving with the local wound care. Antibiotic therapy continues with meropenem and vancomycin for the sternal wound dehiscence and infection. Dressing changes have been per the cardiothoracic team to the chest wound. The abdominal wound is healing well and is having some serous drainage related to the anasarca. Hopefully with improving edema status and improve nutritional status anasarca will resolve. 12/27/2017 reveals a patient with further improvement. Her anasarca is improving and she is having less edema. She is tolerating the intravenous antibiotic therapy of meropenem and vancomycin for her sternal wound dehiscence. Leukocytosis in general is improved. No other new infections are noted. She had a wound VAC dressing change today of the sternal area. 12/28/2017 reveals the patient to have developed some bowel distention and concerns to ileus. She's been seen by general surgery. He will determine if she needs to have her Dobbhoff removed and an NG tube place. The patient has significant hypo albuminemia and is in need of the extensive supplementation, consequently TPN was requested per the surgeon. She will remain on her antibiotic therapy planning 6 weeks for the complex sternal dehiscence. Cardiothoracic surgery have changed her VAC dressing to her sternal wound. 12/29/2017 patient continues to tolerate antibiotic therapy well. Orders have been clarified for the 6 weeks of meropenem and vancomycin. Transthoracic is in charge of the dressing changes to the complex sternal dehiscence wound. Tolerating TPN well with overall goal to improve her very low protein which will help her significant and extensive tissue edema. Current Visit: Yes Status: Acute Code(s): T81.32XA - DISRUPTION OF INTERNAL OPERATION (SURGICAL) WOUND, NEC, INIT SNOMED Code(s): 97110160
[2017-12-29] MEDS ORDERED: ALBUMIN HUMAN 5% 250 ML IVPB ONE (23:26)
[2017-12-29 23:44] LABS: Glucose,Whole Blood 139 mg/dL (75-99)
[2017-12-30] MEDS: METOCLOPRAMIDE 5 MG/ML 2 ML VIAL IVP SCH ×4 (00:12→18:00)
[2017-12-30] MEDS: INSULIN ASPART 100 UNIT/ML 1 ML 10 ML VIAL SQ SCH ×4 (00:30→18:01)
[2017-12-30] MEDS: MEROPENEM 1 GM in SODIUM CHLORIDE 0.9% 100 ML IVPB SCH ×3 (00:31→17:54)
[2017-12-30] MEDS: HEPARIN SODIUM,PORCINE 5,000 UNIT/ML 1 ML VIAL SQ SCH ×3 (00:31→17:54)
[2017-12-30 02:52] LABS: Anisocytosis Slight; HCT 24.1 % (34.0-46.0); HGB 7.1 gm/dL (11.4-16.0); Hypochromasia Marked; MCH 26.1 pg (25.0-35.0); MCHC 29.6 g/dL (31.0-37.0); MCV 88.2 fL (80.0-100.0); Mean Platelet Volume 7.1; Platelet Count 410 k/uL (150-450); Poikilocytosis Slight; RBC 2.73 m/uL (3.80-5.40); RDW 19.3 % (11.5-15.5); WBC 8.4 k/uL (3.8-10.6)
[2017-12-30 02:58] LABS: Albumin 2.8 g/dL (3.5-5.0); Calcium 9.3 mg/dL (8.4-10.2); Magnesium 2.3 mg/dL (1.6-2.3); Phosphorus 3.7 mg/dL (2.5-4.5); Potassium 3.1 mmol/L (3.5-5.1); Total Bilirubin 0.4 mg/dL (0.2-1.3); Total Protein 5.7 g/dL (6.3-8.2)
[2017-12-30] MEDS ORDERED: ALBUMIN HUMAN 5% 250 ML in EMPTY BAG 1 BAG IVPB STA (03:03)
[2017-12-30] MEDS ORDERED: POTASSIUM CHLORIDE 20 MEQ in WATER FOR INJECTION 1 100ML.BAG IVPB ONE ×2 (03:19→09:00)
[2017-12-30] MEDS ORDERED: Potassium Replacement Protocol 1 EACH MISC MISCELLANE PRN ×2 (03:19→03:47)
[2017-12-30] MEDS: IPRATROPIUM-ALBUTEROL 3 ML NEB INHALATION SCH ×6 (03:47→23:26)
[2017-12-30] MEDS: POTASSIUM BICARBONATE/CIT AC 20 MEQ TABLET.EFF NG-TUBE SCH ×2 (03:59→07:04)
[2017-12-30 06:11] LABS: ABG Base Excess 8.3 mmol/L; ABG HCO3 33 mmol/L (21-25); ABG Oxygen Saturation 99.7 % (94-97); ABG PCO2 52 mmHg (35-45); ABG PH 7.41 (7.35-7.45); ABG PO2 126 mmHg (83-108); ABG TCO2 35 mmol/L (19-24)
[2017-12-30 06:59] LABS: Glucose,Whole Blood 132 mg/dL (75-99)
[2017-12-30] MEDS ORDERED: ALBUMIN HUMAN 25% 50 ML in EMPTY BAG 1 BAG IVPB ONE (07:22)
--- NOTE | 2017-12-30 07:23 | XR ---
EXAMINATION TYPE: XR chest 1V portable DATE OF EXAM: 12/30/2017 COMPARISON: Prior chest x-ray 12/29/2017 HISTORY: Patient on ventilator, abnormal chest x-ray TECHNIQUE: Single frontal view of the chest is obtained. FINDINGS: Dobbhoff tube is present, distal tip not included on the exam, left-sided PICC line is sta ble and tracheostomy tube is overlying appropriate position. Patient is post cardiac valve replacemen t, atrial appendage clipping, there are overlying surgical maya and cardiac leads. Bilateral airsp margie disease is suspected, there is obscured left hemidiaphragm, blunting of the left costophrenic ang le as on prior exam. Exam is rotated and expiratory. IMPRESSION: Correlate for congestive heart failure, pneumonia, ARDS.
[2017-12-30] MEDS: CHLORHEXIDINE GLUCONATE 15 ML CUP MUCOUS MEM SCH ×2 (08:20→20:21)
[2017-12-30] MEDS: METOPROLOL TARTRATE 50 MG TAB NG-TUBE SCH ×2 (08:20→20:19)
[2017-12-30] MEDS: ATORVASTATIN 40 MG TAB PO SCH (08:20)
[2017-12-30] MEDS: ASPIRIN 81 MG PO SCH (08:20)
[2017-12-30] MEDS: AMIODARONE 200 MG TAB PO SCH ×2 (08:20→20:21)
[2017-12-30] MEDS: PANTOPRAZOLE 40 MG TABLET PO SCH (08:20)
[2017-12-30] MEDS: DEXTROSE 5%-0.45% NACL 1,000 ML IV SCH (08:21)
[2017-12-30] MEDS: BUDESONIDE 1 MG/2 ML NEBU INHALATION SCH ×2 (08:26→19:10)
[2017-12-30] MEDS ORDERED: FUROSEMIDE 10 MG/ML 4 ML VIAL IV ONE (08:30)
[2017-12-30] MEDS: FLUCONAZOLE IN NACL,ISO-OSM 200 MG in SALINE 1 100ML.BAG IVPB SCH (08:31)
--- NOTE | 2017-12-30 08:34 | P.PN ---
Subjective Progress Note Date: 12/30/17 Principal diagnosis: Severe mitral valve regurgitation. Coronary artery disease. Preoperative paroxysmal atrial fibrillation on outpatient Coumadin for anticoagulation. Recent hospitalization for lower GI bleed, and duodenal ulcer. History of left subclavian stenosis with stent placement 2014 with recent discovery of critical re-in-stent stenosis. Previous tobacco dependence with preoperative FEV1 60% of predicted. Hypertension. Hyperlipidemia. Depression on Lexapro. Gallbladder disease. Family history of heart disease. Preoperative nasal swab positive for MRSA. Preoperative anemia. POD #35 and Mitral valve replacement using a 25 mm Ribera bioprosthetic tissue valve. Coronary artery bypass grafting 1, a reverse greater saphenous vein graft to the obtuse marginal coronary artery. Endoscopic harvesting of the left greater saphenous vein. Modified MAZE procedure. The report wasn't back yet not back in Ligation of the left atrial appendage using a 40 mm AtriClip. Epi- aortic ultrasound. Intraoperative transesophageal echocardiogram. Intraoperative left ventricular wall tear, an unexpected but potential outcome of surgery. Acute blood loss anemia, an expected outcome given patient's preoperative anemia and intraoperative bleeding. Postoperative prolonged mechanical ventilation secondary to hemodynamic instability, an unexpected but potential outcome of surgery given the extensive nature of her postoperative course. Sternal incision dehiscence, possible outcome of surgery given the patient's obesity, nutrition status and ability. POD #20 sternal wound debridement with placement of wound VAC. POD #15 bronchoscopy and bronchoalveolar lavage of the left lower lobe and extraction of mucous plug POD #9 right rectus abdominous muscle flap closure, open sternal wound. Closure of sternal wound and muscle flap with skin graft substitute, 238 cm. Implantation of reconstructive graft for closure of abdominal wall wound, [address] Krause. Postoperative left lower lobe collapse secondary to mucous plugging, and unexpected but potential outcome of surgery. Bronchial washings positive for Rachana species. Postoperative ileus, an unexpected but potential outcome of surgery. The patient is currently lying in bed with her head elevated at 45. She is in no acute distress. Her abdomen remains distended, she is receiving lactulose and her bowels are moving. Her tracheostomy is midline and intact, sutures are in place, she remains with mechanical ventilator support. Bedside telemetry showing sinus tachycardia with global ST depression heart rate 120. Dobbhoff tube in place, tube feedings continued to be on hold due to her ileus. TPN infusing at 64 mL per hour. Objective - Vital Signs Vital signs: Vital Signs Temp 97.9 F 12/30/17 04:30 Pulse 125 H 12/30/17 08:00 Resp 21 12/30/17 08:00 BP 116/54 12/19/17 10:00 Pulse Ox 79 L 12/30/17 08:00 Intake & Output 12/29/17 12/30/17 12/30/17 18:59 06:59 18:59 Intake Total 1348 831 134 Output Total 1830 1335 145 Balance -482 -504 -11 Weight 105.5 kg 99.8 kg Intake: IV 1168 831 134 Albumin Human 25% 50 ml 50 In Empty Bag 1 bag @ 100 mls/hr IVPB ONCE ONE Rx#: [id number] Dextrose 5%-0.45% NaCl 1, 120 30 000 ml @ 10 mls/hr IV . Q24H [facility] Rx#:[id number] Fluconazole in NaCl,Iso- 100 Osm 200 mg In Saline 1 100ml.bag @ 100 mls/hr IVPB DAILY [facility] Rx#: [id number] Meropenem 1 gm In Sodium 100 Chloride 0.9% 100 ml @ 200 mls/hr IVPB Q8HR [facility] Rx#:[id number] Mvi, Adult No.4 with Vit 512 768 128 K 10 ml Trace (Conc-1Ml/ Dose) 1 ml In Foote 3.3%/ Dex 9.8%/Lipid/Lytes 1, 540 ml @ 64 mls/hr IV . Q24H [facility] Rx#:[id number] Pressure Bag 36 33 6 Vancomycin 1,500 mg In 250 Sodium Chloride 0.9% 250 ml @ 125 mls/hr IVPB Q36H [facility] Rx#:[id number] Oral 180 Output: Drainage 550 1050 95 Right Abdomen 550 1050 95 Urine 1280 285 50 Other: Voiding Method Indwelling Catheter Indwelling Catheter # Bowel Movements 1 ABP, PAP, CO, CI - Last Documented Arterial Blood Pressure 126/65 Pulmonary Artery Pressure 38/33 Cardiac Output 5.8 Cardiac Index 2.9 - Constitutional General appearance: Present: cooperative, no acute distress, obese - EENT ENT: Present: hearing grossly normal - Neck Details: No JVD, no lymphadenopathy, neck is supple. - Respiratory Details: Lung sounds with few scattered crackles throughout, diminished bilateral bases. Respirations are symmetrical and unlabored with mechanical ventilator support. Oxygen saturation are 100% on current mechanical ventilator settings. Current mechanical ventilator settings are as follows, assist-control 20, TV 400, FiO2 35%, PEEP 5. - Cardiovascular Details: Regular rhythm with a tachycardic rate. S1 and S2 present, negative for S3, gallop or murmur. Bedside telemetry showing sinus tachycardia with global ST depression heart rate 120. VAC dressing in place to open chest wound, dressing was changed yesterday. Anasarca with scant serous weeping. Vance wraps in place from toes to thighs and knee high sequential compression devices in place to her bilateral lower extremities. Right brachial arterial line in place and functioning, left brachial PICC line in place and functioning. - Gastrointestinal Gastrointestinal Comment(s): Abdomen is soft, distended and nontender. Obese. Active bowel sounds all 4 abdominal quadrants. Bowel movement this a.m. Right near Dobbhoff and placed to low intermittent wall suction. No guarding or rigidity. Tube feedings on hold. TPN infusing per PICC line at 64 mL per hour. - Genitourinary Genitourinary Comment(s): Mason catheter for accurate I&O. Clear calvin urine. 240 mL output in the last 8 hours. - Integumentary Integumentary Comment(s): Skin is warm and dry. No clubbing or cyanosis. Anasarca with scattered areas of blistering and weeping and serous drainage. Pressure ulcerations to her buttocks with local wound care. Ulcerations to her right wrist area with dressing in place with scant serous drainage. VAC dressing in place to her chest wound with scant serous drainage. HENRI drain in place to her right lower abdomen draining copious thin serous drainage with almost 1570 ml of drainage in the last 24 hours. Eschar area present to her occipital head, clean and without drainage. - Neurologic Neurologic: Present: CNII-XII intact - Musculoskeletal Musculoskeletal: Present: generalized weakness, strength equal bilaterally - Psychiatric Psychiatric Comment(s): Flat affect. Psychiatric: Present: A&O x's 3, intact judgment & insight - Allied health notes Allied health notes reviewed: nursing - Labs CBC & Chem 7: 12/30/17 02:40 12/30/17 02:40 Labs: Abnormal Lab Results - Last 24 Hours (Table) 12/29/17 12/29/17 12/29/17 Range/Units 11:45 12:33 17:48 RBC (3.80-5.40) m/uL Hgb (11.4-16.0) gm/dL Hct (34.0-46.0) % MCHC (31.0-37.0) g/dL RDW (11.5-15.5) % ABG pCO2 (35-45) mmHg ABG pO2 (83-108) mmHg ABG HCO3 (21-25) mmol/L ABG Total CO2 (19-24) mmol/L ABG O2 Saturation (94-97) % Sodium (137-145) mmol/L Potassium (3.5-5.1) mmol/L Carbon Dioxide (22-30) mmol/L BUN (7-17) mg/dL Glucose (74-99) mg/dL POC Glucose (mg/dL) 101 H 114 H (75-99) mg/dL Total Protein (6.3-8.2) g/dL Albumin (3.5-5.0) g/dL HDL Cholesterol 20 L (40-60) mg/dL 12/29/17 12/30/17 12/30/17 Range/Units 23:43 02:40 02:40 RBC 2.73 L (3.80-5.40) m/uL Hgb 7.1 L (11.4-16.0) gm/dL Hct 24.1 L (34.0-46.0) % MCHC 29.6 L (31.0-37.0) g/dL RDW 19.3 H (11.5-15.5) % ABG pCO2 (35-45) mmHg ABG pO2 (83-108) mmHg ABG HCO3 (21-25) mmol/L ABG Total CO2 (19-24) mmol/L ABG O2 Saturation (94-97) % Sodium 148 H (137-145) mmol/L Potassium 3.1 L (3.5-5.1) mmol/L Carbon Dioxide 33 H (22-30) mmol/L BUN 40 H (7-17) mg/dL Glucose 124 H (74-99) mg/dL POC Glucose (mg/dL) 139 H (75-99) mg/dL Total Protein 5.7 L (6.3-8.2) g/dL Albumin 2.8 L (3.5-5.0) g/dL HDL Cholesterol (40-60) mg/dL 12/30/17 12/30/17 Range/Units 05:43 06:57 RBC (3.80-5.40) m/uL Hgb (11.4-16.0) gm/dL Hct (34.0-46.0) % MCHC (31.0-37.0) g/dL RDW (11.5-15.5) % ABG pCO2 52 H (35-45) mmHg ABG pO2 126 H (83-108) mmHg ABG HCO3 33 H (21-25) mmol/L ABG Total CO2 35 H (19-24) mmol/L ABG O2 Saturation 99.7 H (94-97) % Sodium (137-145) mmol/L Potassium (3.5-5.1) mmol/L Carbon Dioxide (22-30) mmol/L BUN (7-17) mg/dL Glucose (74-99) mg/dL POC Glucose (mg/dL) 132 H (75-99) mg/dL Total Protein (6.3-8.2) g/dL Albumin (3.5-5.0) g/dL HDL Cholesterol (40-60) mg/dL - Imaging and Cardiology Chest x-ray: report reviewed, image reviewed Assessment and Plan (1) Acute blood loss as cause of postoperative anemia Current Visit: Yes Status: Acute Code(s): D62 - ACUTE POSTHEMORRHAGIC ANEMIA SNOMED Code(s): 84599025411563623 (2) CAD (coronary artery disease) Current Visit: Yes Status: Chronic Code(s): I25.10 - ATHSCL HEART DISEASE OF [place] CORONARY ARTERY W/O ANG PCTRS SNOMED Code(s): 50884414 (3) Family history of coronary artery disease Current Visit: Yes Status: Chronic Code(s): Z82.49 - FAMILY HX OF ISCHEM HEART DIS AND OTH DIS OF THE CIRC SYS SNOMED Code(s): 318494781 (4) Hyperlipidemia Current Visit: Yes Status: Chronic Code(s): E78.5 - HYPERLIPIDEMIA, UNSPECIFIED SNOMED Code(s): 90315226 (5) Hypertension Current Visit: Yes Status: Chronic Code(s): I10 - ESSENTIAL (PRIMARY) HYPERTENSION SNOMED Code(s): 79158426 (6) Severe mitral regurgitation Current Visit: Yes Status: Chronic Code(s): I34.0 - NONRHEUMATIC MITRAL ( VALVE) INSUFFICIENCY SNOMED Code(s): 50281028 (7) Stenosis of left subclavian artery Current Visit: Yes Status: Chronic Code(s): I77.1 - STRICTURE OF ARTERY SNOMED Code(s): 15142708297856021 (8) PAD (peripheral artery disease) Current Visit: No Status: Acute Code(s): I73.9 - PERIPHERAL VASCULAR DISEASE , UNSPECIFIED SNOMED Code(s): 694526844 (9) History of GI bleed Current Visit: No Status: Resolved Code(s): Z87.19 - PERSONAL HISTORY OF OTHER DISEASES OF THE DIGESTIVE SYSTEM SNOMED Code(s): 964969359 (10) Paroxysmal atrial fibrillation Current Visit: No Status: Resolved Code(s): I48.0 - PAROXYSMAL ATRIAL FIBRILLATION SNOMED Code(s): 416982135 (11) Elevated aspartate aminotransferase level Current Visit: Yes Status: Acute Code(s): R74.0 - NONSPEC ELEV OF LEVELS OF TRANSAMNS & LACTIC ACID DEHYDRGNSE SNOMED Code(s): 838129532 (12) Ileus, postoperative Current Visit: Yes Status: Acute Code(s): K91.89 - OTH POSTPROCEDURAL COMPLICATIONS AND DISORDERS OF DGSTV SYS; K56.7 - ILEUS, UNSPECIFIED SNOMED Code(s): 501772271 Plan: 1. Continue low-dose aspirin, statin, subcutaneous heparin, beta krunal. Will increase beta krunal therapy as tolerated. 2. Continue amiodarone to 200 mg daily per Dobbhoff daily for history of paroxysmal atrial fibrillation on home amiodarone. 3. Pulmonary and ventilator management per Dr. Ledbetter's recommendations. 4. Continue meropenem, vancomycin and Diflucan per Dr. Olivera management 5. Hold tube feedings for now, general surgery managing. 6. Will monitor labs, chest x-rays daily. 7. Bronchodilators per pulmonology management. 8. Continue VAC dressing to her chest wound. Place Adaptic down over Integra dressing, placed black granuafoam, placed a wound VAC drainage system if possible 100 mmHg, medium intensity and continuous setting. Change VAC dressing Wednesdays and Fridays. Wound VAC dressing will be changed today. Also per Dr. Galindo no contraindication for PEG tube placement if needed. 9. GI/DVT prophylaxis. 10. Dr. Lofton from general surgery following for ileus management. Continue TPN at 64 mL per hour. 11. Albumin 25% followed by Lasix 40 mg IV 1 today. 12. Continue Mason catheter for accurate I&O. 13. Continue Reglan 10 continue mg IV every 6 hours, Lactulose 20 g per Dobbhoff tube 3 times a day started by general surgery. 14. Continue local wound care to her back and head. 15. More recommendations as patient progresses in her care. Time with Patient: Greater than 30
[2017-12-30] MEDS: LACTULOSE 20 GM/30 ML CUP PO SCH ×3 (09:45→20:21)
--- NOTE | 2017-12-30 10:48 | P.PN ---
Subjective Progress Note Date: 12/30/17 Principal diagnosis: 67-year-old female status post CABG one month ago with MVR complicated by sternal wound dehiscence. Status post tracheostomy. Status post EGD with Dobbhoff tube placement. Reevaluated today in regards to recent abdominal distention possible ileus. Patient's tube feedings were stopped a few days ago secondary to abdominal xray findings. Receiving TPN Reglan and lactulose; evaluated by general surgery. Passing flatus and bowel movements. Denies nausea vomiting. Objective - Vital Signs Vital signs: Vital Signs Temp 97.9 F 12/30/17 04:30 Pulse 125 H 12/30/17 10:30 Resp 22 12/30/17 10:30 BP 116/54 12/19/17 10:00 Pulse Ox 100 12/30/17 10:30 Intake & Output 12/29/17 12/30/17 12/30/17 18:59 06:59 18:59 Intake Total 1348 831 401 Output Total 1830 1335 260 Balance -482 -504 141 Weight 105.5 kg 99.8 kg Intake: IV 1168 831 401 Albumin Human 25% 50 ml 50 In Empty Bag 1 bag @ 100 mls/hr IVPB ONCE ONE Rx#: [id number] Dextrose 5%-0.45% NaCl 1, 120 30 000 ml @ 10 mls/hr IV . Q24H [facility] Rx#:[id number] Fluconazole in NaCl,Iso- 100 100 Osm 200 mg In Saline 1 100ml.bag @ 100 mls/hr IVPB DAILY [facility] Rx#: [id number] Meropenem 1 gm In Sodium 100 100 Chloride 0.9% 100 ml @ 200 mls/hr IVPB Q8HR [facility] Rx#:[id number] Mvi, Adult No.4 with Vit 512 768 192 K 10 ml Trace (Conc-1Ml/ Dose) 1 ml In Foote 3.3%/ Dex 9.8%/Lipid/Lytes 1, 540 ml @ 64 mls/hr IV . Q24H [facility] Rx#:[id number] Pressure Bag 36 33 9 Vancomycin 1,500 mg In 250 Sodium Chloride 0.9% 250 ml @ 125 mls/hr IVPB Q36H [facility] Rx#:[id number] Oral 180 Output: Drainage 550 1050 100 Right Abdomen 550 1050 100 Urine 1280 285 160 Other: Voiding Method Indwelling Catheter Indwelling Catheter # Bowel Movements 1 ABP, PAP, CO, CI - Last Documented Arterial Blood Pressure 128/74 Pulmonary Artery Pressure 38/33 Cardiac Output 5.8 Cardiac Index 2.9 - Exam General appearance: The patient is alert, oriented, in no acute distress. HET: Head is normocephalic and atraumatic. Pupils are equal and reactive. Oropharynx is clear without lesions. Dobbhoff presently connected to suction with bilious fluid.. Neck: Supple without lymphadenopathy. Trachea midline. Tracheostomy without drainage or bleeding. Heart: S1 S2. Sternal wound dressing. Lungs: No crackles or wheezes are heard. Abdomen: Soft, nontender, bloated with bowel sounds. No peritoneal signs. No palpable organomegaly or masses. - Labs CBC & Chem 7: 12/30/17 02:40 12/30/17 02:40 Labs: Abnormal Lab Results - Last 24 Hours (Table) 12/29/17 12/29/17 12/29/17 Range/Units 11:45 12:33 17:48 RBC (3.80-5.40) m/uL Hgb (11.4-16.0) gm/dL Hct (34.0-46.0) % MCHC (31.0-37.0) g/dL RDW (11.5-15.5) % ABG pCO2 (35-45) mmHg ABG pO2 (83-108) mmHg ABG HCO3 (21-25) mmol/L ABG Total CO2 (19-24) mmol/L ABG O2 Saturation (94-97) % Sodium (137-145) mmol/L Potassium (3.5-5.1) mmol/L Carbon Dioxide (22-30) mmol/L BUN (7-17) mg/dL Glucose (74-99) mg/dL POC Glucose (mg/dL) 101 H 114 H (75-99) mg/dL Total Protein (6.3-8.2) g/dL Albumin (3.5-5.0) g/dL HDL Cholesterol 20 L (40-60) mg/dL 12/29/17 12/30/17 12/30/17 Range/Units 23:43 02:40 02:40 RBC 2.73 L (3.80-5.40) m/uL Hgb 7.1 L (11.4-16.0) gm/dL Hct 24.1 L (34.0-46.0) % MCHC 29.6 L (31.0-37.0) g/dL RDW 19.3 H (11.5-15.5) % ABG pCO2 (35-45) mmHg ABG pO2 (83-108) mmHg ABG HCO3 (21-25) mmol/L ABG Total CO2 (19-24) mmol/L ABG O2 Saturation (94-97) % Sodium 148 H (137-145) mmol/L Potassium 3.1 L (3.5-5.1) mmol/L Carbon Dioxide 33 H (22-30) mmol/L BUN 40 H (7-17) mg/dL Glucose 124 H (74-99) mg/dL POC Glucose (mg/dL) 139 H (75-99) mg/dL Total Protein 5.7 L (6.3-8.2) g/dL Albumin 2.8 L (3.5-5.0) g/dL HDL Cholesterol (40-60) mg/dL 12/30/17 12/30/17 Range/Units 05:43 06:57 RBC (3.80-5.40) m/uL Hgb (11.4-16.0) gm/dL Hct (34.0-46.0) % MCHC (31.0-37.0) g/dL RDW (11.5-15.5) % ABG pCO2 52 H (35-45) mmHg ABG pO2 126 H (83-108) mmHg ABG HCO3 33 H (21-25) mmol/L ABG Total CO2 35 H (19-24) mmol/L ABG O2 Saturation 99.7 H (94-97) % Sodium (137-145) mmol/L Potassium (3.5-5.1) mmol/L Carbon Dioxide (22-30) mmol/L BUN (7-17) mg/dL Glucose (74-99) mg/dL POC Glucose (mg/dL) 132 H (75-99) mg/dL Total Protein (6.3-8.2) g/dL Albumin (3.5-5.0) g/dL HDL Cholesterol (40-60) mg/dL Assessment and Plan Assessment: Impression: 1. Abdominal distention suspect ileus possible small bowel obstruction without clinical evidence of nausea vomiting presently passing flatus. Morning x-ray show slight improvement from prior exam. Status post recent EGD with Dobbhoff tube insertion tube feeds presently on hold. 2. Status post CABG MVR one month ago gradually recovering. 3. Acute respiratory failure status post tracheostomy. 4. Sternal wound dehiscence. Recommendations: 1. Patient clinically is passing flatus and bowel movements without nausea or vomiting tube feeds are presently on hold. Receiving TPN. 2. General surgical recommendations appreciated. Continue with Reglan and lactulose. Reinitiation of tube feeds per general surgery. 3. Insertion of PEG tube is not planned at this time secondary to increased risk of PEG tube infection; insertion of PEG tube is too close to sternal wound ; presently receiving antibiotics for sternal wound dehiscence status post skin graft reconstruction muscle flap closure surgery. 4. We'll continue to follow closely with you. Assessment and plan a care discussed with Dr. Plummer
[2017-12-30 11:39] LABS: Glucose,Whole Blood 132 mg/dL (75-99)
[2017-12-30] MEDS: LACTOBACILLUS ACIDOPH & BULGAR 1 EACH PACKET PO SCH ×3 (11:41→20:52)
[2017-12-30] MEDS: BISACODYL 10 MG SUPP RECTAL SCH (11:41)
--- NOTE | 2017-12-30 12:02 | P.PN ---
Subjective Progress Note Date: 12/30/17 A 67-year-old female patient was being seen in follow-up in the intensive care unit. The patient is postop day #32 following her cardiac surgery. The patient underwent a one-vessel bypass surgery and mitral valve replacement and I 'm seeing her today in follow-up. Events postop were all noted and I was updated by the nursing staff regarding details on her progress. The patient underwent a surgical flap of the sternal wound as the patient had wound dehiscence and infection and she is currently postop day #6. The patient also has a tracheostomy tube in place and the patient is postop day #3 post trach. The previous cultures have indicated Serratia marcescens and the patient remains on IV Merrem. Note that during the course of her ICU stay the patient developed complete left lung collapse and she required bronchoscopy and the sputum has indicated Rachana. She is also on Diflucan. The patient also has a tracheostomy tube in place and the patient is postop day #3 post trach. T This morning, the patient is awake and alert. She is following commands and answering questions. She is an assist-control mode of ventilation. The patient is being given brief trials with pressure support and she initially started tolerating pressure support for one hour then subsequently 2 hours. She is not ready for further weaning or prolonged periods where she is placed on pressure support. Currently she is on a assist-control mode at the rate of 20 with tidal volume 400, and 35% FiO2 with a PEEP of 5. She has a tracheostomy tube which is a Shiley trach tube #8. Surgical wound site on the tracheostomy tube is clean. The patient is not having significant orotracheal secretions. The patient is a bit tachypneic as her abdomen is somewhat distended on today's evaluation. I can't understand that the patient was throwing up throughout the night. Her abdomen is somewhat distended and tympanic. She is producing some loose bowel movements. The patient had a Dobbhoff catheter for enteral feeding and nutritional support. The feeding was stopped this morning. She is not complaining of any abdominal pain however abdomen is distended. On today's chest x-ray there is a large gastric bubble. There is also small bilateral pleural. Effusions. She has underlying cardiomegaly. Sternum stable clean and intact. The HENRI drain in the sternal wound is still in place. Her blood gases from today showed a pH of 7.37 with a pCO2 of 57 and pO2 of 102. Patient continues to be edematous in the upper and lower extremity more so in the legs. The patient is being diuresis with Lasix. The patient is a negative fluid balance of 471 mL over the past 24 hours. The patient is on no pressors. Cardiac rhythm is sinus rhythm. On 12/28/2017 the patient is being seen for a follow-up. The patient is wide awake and alert. She remains on a mechanical ventilator. She is on a assist- control mode of ventilation. The patient has a tracheostomy tube #8 Shiley. The patient is in a rate of 20, tidal volume 400, FiO2 of 35% and a PEEP of 5. Chest x-ray findings are stable. remains distended and tympanic. The patient is an underlying ileus. The tube feeds have been placed on hold. The Dobbhoff is attached to suction. The follow-up abdominal film showed Marked dilation of the small bowel loop and this is consistent with ileus. The patient is currently off tube feeds. Meanwhile, the patient's weaning parameters today at baseline showed a rapid shallow breathing index of 86 with a vital Of 450-480. The patient is not ready for any weaning trials at this point. Meanwhile, we' ll continue supportive care. The patient's wound VAC over the anterior chest has gained approximately 1160 MO's for this current shift. The abdominal wound drainage is quite extensive. It drained approximately 2000 MO's of serosanguineous fluid and over the past 8 hours it drained around 1178 ML's. The patient remains on a combination of antibiotics. The patient is receiving a combination of vancomycin and Merrem. The antibiotic coverage is mainly for sternal wound infection/dehiscence. The wound VAC is been applied to the sternal area. No fever. No leukocytosis and no hypotension. No other complaints otherwise. Hemoglobin is low at 7.0. On 12/29/2017 and I'm seeing this patient for a follow-up. She remains nothing by mouth. Abdomen is less distended compared to yesterday. Dobbhoff is in place. The patient was started on lactulose. She was producing some limited amount of bowel moments which was liquidy. Nevertheless the bowel sounds are very sluggish on today's evaluation. She is in a sitting up position in her bed. She assist-control mode of ventilation and I was able to put on a pressure support of 10 and PEEP of 5 for few hours this morning. Her FiO2 is remains at 35%. She still has a wound VAC over the anterior chest and she also has a drain in her right lower abdominal wall which is draining extensively. The patient remains on the same antibiotic coverage. I came to realize that Merrem was taken off the list accidentally by the computer system and I had to resume the mammogram again in conjunction with vancomycin. The patient will need long-term antibiotic treatment for sternal wound infection. This was again confirmed with infectious disease. The patient's hemoglobin today is at 7.2. The patient has no fever. No chills. No leukocytosis. No altered mentation. His communicating. She is weak and she continues to have some edematous upper and lower extremities. She was started on TPN for nutritional support. General surgeries on the case regarding her abdominal ileus. On 12/30/2017, the patient is awake and alert. She is an assist-control mode of ventilation. She tolerated a 1 hour of pressure support ventilation yesterday following with she became short of breath and tachycardic and this had to be aborted. She remained hemodynamically stable however last night she went into a flutter with rapid ventricular response at the rate of 1:30. She remains on a combination of metoprolol and amiodarone. No chest pain. She is producing adequate amount of urine output. She still has an abdominal ileus. Bowel sounds are hypoactive. She is passing bowel movements and the Dobbhoff still in place. TPN was initiated for nutritional support. The wound VAC is in place. The HENRI drain in the right upper abdomen is also in place. She is afebrile. She is moving all 4 extremities. Still weak yet in good spirits. Objective - Vital Signs Vital signs: Vital Signs Temp 97.9 F 12/30/17 04:30 Pulse 126 H 12/30/17 11:50 Resp 21 12/30/17 11:00 BP 116/54 12/19/17 10:00 Pulse Ox 96 12/30/17 11:00 Intake & Output 12/29/17 12/30/17 12/30/17 18:59 06:59 18:59 Intake Total 1348 831 535 Output Total 1830 1335 670 Balance -482 -504 -135 Weight 105.5 kg 99.8 kg Intake: IV 1168 831 535 Albumin Human 25% 50 ml 50 In Empty Bag 1 bag @ 100 mls/hr IVPB ONCE ONE Rx#: [id number] Dextrose 5%-0.45% NaCl 1, 120 30 000 ml @ 10 mls/hr IV . Q24H [facility] Rx#:[id number] Fluconazole in NaCl,Iso- 100 100 Osm 200 mg In Saline 1 100ml.bag @ 100 mls/hr IVPB DAILY [facility] Rx#: [id number] Meropenem 1 gm In Sodium 100 100 Chloride 0.9% 100 ml @ 200 mls/hr IVPB Q8HR [facility] Rx#:[id number] Mvi, Adult No.4 with Vit 512 768 320 K 10 ml Trace (Conc-1Ml/ Dose) 1 ml In Foote 3.3%/ Dex 9.8%/Lipid/Lytes 1, 540 ml @ 64 mls/hr IV . Q24H [facility] Rx#:[id number] Pressure Bag 36 33 15 Vancomycin 1,500 mg In 250 Sodium Chloride 0.9% 250 ml @ 125 mls/hr IVPB Q36H [facility] Rx#:[id number] Oral 180 Output: Drainage 550 1050 200 Right Abdomen 550 1050 200 Urine 1280 285 470 Other: Voiding Method Indwelling Catheter Indwelling Catheter Indwelling Catheter # Bowel Movements 1 ABP, PAP, CO, CI - Last Documented Arterial Blood Pressure 111/65 Pulmonary Artery Pressure 38/33 Cardiac Output 5.8 Cardiac Index 2.9 - Exam - Constitutional General appearance: Present: cooperative, no acute distress, obese, the patient has a #8 tracheostomy Shiley trach tube in place. She is synchronous with the mechanical ventilator. She is awake and interactive. - Neck Details: Neck is supple, no JVD, no lymphadenopathy. Tracheostomy tube is midline and intact, sutures in place. - Respiratory Details: Lungs sounds essentially diminished throughout. Respirations are symmetrical and nonlabored with mechanical ventilator support. Oxygen saturation are 99% with current ventilator settings. Current ventilator settings is an assist- control: Cycle ventilator - Cardiovascular Details: Pain is tachycardic at regular rate and rhythm seems to be regular. This may be a a flutter with 2 to one block. S1 and S2 present, negative for S3 , gallop or murmur. Chest with open wound, postoperative muscle flap performed. The patient has a one leg applied to the anterior chest Dressing with scant serous drainage. Generalized anasarca with weeping. Vance wraps in place from toes to thighs to bilateral lower extremities. Knee-high sequential compression devices in place to her bilateral lower extremities. Left brachial PICC line in place and functioning. Right brachial arterial line in place and functioning. The patient's wound VAC with a total amount of drainage of 1600cc yesterday. - Gastrointestinal Gastrointestinal Comment(s): Abdomen is soft, yet this is distended and tympanic. The patient had diminished bowel sounds. No direct tenderness but no rebound tenderness. No guarding. Abdominal wound is dry clean and intact. The patient has a HENRI drain in the lower abdominal wall which is draining quite extensively. The drainage is serous segments in nature. The output from the right abdomen HENRI drain is 1565 mL over the past 24 hours. - Genitourinary Genitourinary Comment(s): Mason catheter for accurate I&O. Draining clear yellow urine. - Integumentary Integumentary Comment(s): Skin is warm and dry. No clubbing or cyanosis. Anasarca with scattered areas of blistering and weeping thin serous drainage. Pressure ulcerations to her buttocks with local wound care. Ulceration to her right wrist area with dressing in place with scant serous drainage. Dressing in place to her chest wound. - Neurologic Neurologic Comment(s): Alert and following verbal commands. Nodding her head yes and no appropriately to questions. Moving all 4 extremities appropriately with weak movements. - Musculoskeletal Musculoskeletal: Present: generalized weakness, strength equal bilaterally - Psychiatric Psychiatric Comment(s): Psychiatric: Present: intact judgment & insight - Labs CBC & Chem 7: 12/30/17 02:40 12/30/17 02:40 Labs: Abnormal Lab Results - Last 24 Hours (Table) 12/29/17 12/29/17 12/29/17 Range/Units 11:45 12:33 17:48 RBC (3.80-5.40) m/uL Hgb (11.4-16.0) gm/dL Hct (34.0-46.0) % MCHC (31.0-37.0) g/dL RDW (11.5-15.5) % ABG pCO2 (35-45) mmHg ABG pO2 (83-108) mmHg ABG HCO3 (21-25) mmol/L ABG Total CO2 (19-24) mmol/L ABG O2 Saturation (94-97) % Sodium (137-145) mmol/L Potassium (3.5-5.1) mmol/L Carbon Dioxide (22-30) mmol/L BUN (7-17) mg/dL Glucose (74-99) mg/dL POC Glucose (mg/dL) 101 H 114 H (75-99) mg/dL Total Protein (6.3-8.2) g/dL Albumin (3.5-5.0) g/dL HDL Cholesterol 20 L (40-60) mg/dL 12/29/17 12/30/17 12/30/17 Range/Units 23:43 02:40 02:40 RBC 2.73 L (3.80-5.40) m/uL Hgb 7.1 L (11.4-16.0) gm/dL Hct 24.1 L (34.0-46.0) % MCHC 29.6 L (31.0-37.0) g/dL RDW 19.3 H (11.5-15.5) % ABG pCO2 (35-45) mmHg ABG pO2 (83-108) mmHg ABG HCO3 (21-25) mmol/L ABG Total CO2 (19-24) mmol/L ABG O2 Saturation (94-97) % Sodium 148 H (137-145) mmol/L Potassium 3.1 L (3.5-5.1) mmol/L Carbon Dioxide 33 H (22-30) mmol/L BUN 40 H (7-17) mg/dL Glucose 124 H (74-99) mg/dL POC Glucose (mg/dL) 139 H (75-99) mg/dL Total Protein 5.7 L (6.3-8.2) g/dL Albumin 2.8 L (3.5-5.0) g/dL HDL Cholesterol (40-60) mg/dL 12/30/17 12/30/17 12/30/17 Range/Units 05:43 06:57 11:37 RBC (3.80-5.40) m/uL Hgb (11.4-16.0) gm/dL Hct (34.0-46.0) % MCHC (31.0-37.0) g/dL RDW (11.5-15.5) % ABG pCO2 52 H (35-45) mmHg ABG pO2 126 H (83-108) mmHg ABG HCO3 33 H (21-25) mmol/L ABG Total CO2 35 H (19-24) mmol/L ABG O2 Saturation 99.7 H (94-97) % Sodium (137-145) mmol/L Potassium (3.5-5.1) mmol/L Carbon Dioxide (22-30) mmol/L BUN (7-17) mg/dL Glucose (74-99) mg/dL POC Glucose (mg/dL) 132 H 132 H (75-99) mg/dL Total Protein (6.3-8.2) g/dL Albumin (3.5-5.0) g/dL HDL Cholesterol (40-60) mg/dL Assessment and Plan Plan: Assessment 1 coronary artery bypass surgery with single-vessel bypass and mitral valve replacement/bioprosthetic valve. The patient is postop day #35 2 sternal wound infection with Serratia marcescens with subsequent dehiscence. The patient underwent wound debridement with subsequent muscle flap and the patient is postop day #9. The patient remains on a combination of Merrem and vancomycin. The wound VAC is still in place 3 prolonged ventilator dependent respiratory failure, status post tracheostomy tube insertion and the patient is postop day #6. Patient remains on assist control mode of ventilation . Weaning parameters that point the patient is not ready for further weaning at this point. A short trial a pressure support ventilation was done yesterday. 4 acute on chronic respiratory failure, multifactorial. The patient's sternal wound and the muscle flap is healing for now. She is weak and she is not ready for further weaning based on her daily parameters. Doubt superimposed pneumonia at this point 5 increased edema both upper and lower extremities, improving 6 paroxysmal atrial fibrillation current rhythm tachycardic probably in a flutter rhythm. Cardiology will be informed of these changes. 7 peripheral vascular disease 8 left subclavian artery stenosis status post insertion of an endovascular stent 9 anemia, a expected outcome of prolonged ICU stay and multiple surgeries 10 ileus, abdominal distention with increased emesis. The patient is currently off tube feeds. The patient has a Dobbhoff which is currently to suction. The patient is receiving lactulose. The patient will be started also on TPN. 11 left lung collapse status post bronchoscopy and therapeutic it was suctioning. Patient has Rachana within the sputum currently on Diflucan 12 hypertension 13 hyperlipidemia 14 anemia multifactorial with a hemoglobin level of 7.1 PLAN Consult with cardiology regarding the atrial flutter rhythm. May need another cardioversion. The patient will be restarted back on a low rate tube feeds on a trial basis. Continue vent support. Continue TPN for additional support. Monitor hemoglobin. Monitor the output from the wound VAC and the HENRI drain from the right abdomen. Monitor the fever pattern. Continue same antibiotic coverage. We'll continue to follow.
[2017-12-30] MEDS: MVI, ADULT NO.4 WITH VIT K 10 ML, TRACE (CONC-1ML/DOSE) 1 ML in AMIN 3.3%/DEX 9.8%/LIPI... IV SCH ×3 (13:11)
--- NOTE | 2017-12-30 14:27 | PN ---
PROGRESS NOTE This is a 67-year-old lady with history of coronary artery disease, mitral regurgitation, status post mitral valve replacement, postop atrial fibrillation on Coumadin, sternal wound infections, a day since status post surgery, respiratory insufficiency, status post tracheostomy. She developed atrial fibrillation with poorly controlled ventricular rate through yesterday. Patient is currently on amiodarone, aspirin, Lipitor, Lopressor and nebulizer. On exam, heart rate is 120 beats per minute, irregular. Blood pressure is 111/65, respiratory rate is 20. Chest exam reveals diminished air entry at the bases. Heart exam reveals first and second heart sounds, irregular rhythm. Abdomen is soft. Exam of extremities reveals 1+ edema. Peripheral pulses are palpable. Labs show a hemoglobin of 7.1, potassium is 3.1, creatinine is 0.9. ASSESSMENT: 1. Atrial fibrillation with poorly-controlled ventricular rate. 2. History of mitral valve replacement, coronary artery disease, status post coronary artery bypass grafting. We will increase the dose of amiodarone and metoprolol as needed. MMODL / IJN: [id number] /
[2017-12-30] MEDS ORDERED: METOPROLOL TARTRATE 25 MG TAB PO STA (14:36)
[2017-12-30] MEDS: DILTIAZEM ORAL 30 MG TAB PO SCH ×2 (15:18→23:18)
--- NOTE | 2017-12-30 16:17 | P.PN ---
Subjective Progress Note Date: 12/30/17 67-year-old female being seen in the ICU physical and occupational therapy at the bedside therapy working with patient more awake and alert. trach on vent support. TPN has been initiated wound VAC in place HENRI drain right upper quadrant moving all 4 extremities with therapy dobbhoff tube in place patient' s had 2 bowel movements Objective - Vital Signs Vital signs: Vital Signs Temp 98.2 F 12/30/17 12:00 Pulse 133 H 12/30/17 14:30 Resp 22 12/30/17 14:30 BP 116/54 12/19/17 10:00 Pulse Ox 97 12/30/17 14:30 Intake & Output 12/29/17 12/30/17 12/30/17 18:59 06:59 18:59 Intake Total 7154 051 9088 Output Total 1830 1335 1220 Balance -482 -504 1134 Weight 105.5 kg 99.8 kg 99.8 kg Intake: IV 1168 831 803 Albumin Human 25% 50 ml 50 In Empty Bag 1 bag @ 100 mls/hr IVPB ONCE ONE Rx#: [id number] Dextrose 5%-0.45% NaCl 1, 120 30 000 ml @ 10 mls/hr IV . Q24H [facility] Rx#:[id number] Fluconazole in NaCl,Iso- 100 100 Osm 200 mg In Saline 1 100ml.bag @ 100 mls/hr IVPB DAILY [facility] Rx#: [id number] Meropenem 1 gm In Sodium 100 100 Chloride 0.9% 100 ml @ 200 mls/hr IVPB Q8HR [facility] Rx#:[id number] Mvi, Adult No.4 with Vit 512 768 576 K 10 ml Trace (Conc-1Ml/ Dose) 1 ml In Foote 3.3%/ Dex 9.8%/Lipid/Lytes 1, 540 ml @ 64 mls/hr IV . Q24H [facility] Rx#:[id number] Pressure Bag 36 33 27 Vancomycin 1,500 mg In 250 Sodium Chloride 0.9% 250 ml @ 125 mls/hr IVPB Q36H [facility] Rx#:[id number] Intake, IV Titration 1551 Amount Mvi, Adult No.4 with Vit 1551 K 10 ml Trace (Conc-1Ml/ Dose) 1 ml In Foote 3.3%/ Dex 9.8%/Lipid/Lytes 1, 540 ml @ 64 mls/hr IV . Q24H [facility] Rx#:[id number] Oral 180 Output: Drainage 550 1050 400 Right Abdomen 550 1050 400 Urine 1280 285 820 Other: Voiding Method Indwelling Catheter Indwelling Catheter Indwelling Catheter # Bowel Movements 1 ABP, PAP, CO, CI - Last Documented Arterial Blood Pressure 121/69 Pulmonary Artery Pressure 38/33 Cardiac Output 5.8 Cardiac Index 2.9 - Exam Physical exam Abdomen indwelling Mason catheter in place wound VAC to medial chest in place nontender mild distention right upper quadrant dressing with a HENRI drain in place to dobbhoff tube in place with initiation of tube feeds TPN in progress tube feeds have not been initiated 2 bowel movements today - Labs CBC & Chem 7: 12/30/17 02:40 12/30/17 02:40 Labs: Abnormal Lab Results - Last 24 Hours (Table) 12/29/17 12/29/17 12/30/17 Range/Units 17:48 23:43 02:40 RBC 2.73 L (3.80-5.40) m/uL Hgb 7.1 L (11.4-16.0) gm/dL Hct 24.1 L (34.0-46.0) % MCHC 29.6 L (31.0-37.0) g/dL RDW 19.3 H (11.5-15.5) % ABG pCO2 (35-45) mmHg ABG pO2 (83-108) mmHg ABG HCO3 (21-25) mmol/L ABG Total CO2 (19-24) mmol/L ABG O2 Saturation (94-97) % Sodium (137-145) mmol/L Potassium (3.5-5.1) mmol/L Carbon Dioxide (22-30) mmol/L BUN (7-17) mg/dL Glucose (74-99) mg/dL POC Glucose (mg/dL) 114 H 139 H (75-99) mg/dL Total Protein (6.3-8.2) g/dL Albumin (3.5-5.0) g/dL 12/30/17 12/30/17 12/30/17 Range/Units 02:40 05:43 06:57 RBC (3.80-5.40) m/uL Hgb (11.4-16.0) gm/dL Hct (34.0-46.0) % MCHC (31.0-37.0) g/dL RDW (11.5-15.5) % ABG pCO2 52 H (35-45) mmHg ABG pO2 126 H (83-108) mmHg ABG HCO3 33 H (21-25) mmol/L ABG Total CO2 35 H (19-24) mmol/L ABG O2 Saturation 99.7 H (94-97) % Sodium 148 H (137-145) mmol/L Potassium 3.1 L (3.5-5.1) mmol/L Carbon Dioxide 33 H (22-30) mmol/L BUN 40 H (7-17) mg/dL Glucose 124 H (74-99) mg/dL POC Glucose (mg/dL) 132 H (75-99) mg/dL Total Protein 5.7 L (6.3-8.2) g/dL Albumin 2.8 L (3.5-5.0) g/dL 12/30/17 Range/Units 11:37 RBC (3.80-5.40) m/uL Hgb (11.4-16.0) gm/dL Hct (34.0-46.0) % MCHC (31.0-37.0) g/dL RDW (11.5-15.5) % ABG pCO2 (35-45) mmHg ABG pO2 (83-108) mmHg ABG HCO3 (21-25) mmol/L ABG Total CO2 (19-24) mmol/L ABG O2 Saturation (94-97) % Sodium (137-145) mmol/L Potassium (3.5-5.1) mmol/L Carbon Dioxide (22-30) mmol/L BUN (7-17) mg/dL Glucose (74-99) mg/dL POC Glucose (mg/dL) 132 H (75-99) mg/dL Total Protein (6.3-8.2) g/dL Albumin (3.5-5.0) g/dL Assessment and Plan Assessment: Impression X-ray likely suggests ileus Postop coronary artery bypass complicated medical course postoperatively PEG tube held secondary to abdominal wall edema and recent right upper quadrant muscle flap exposure Sternal wound dehiscence with wound VAC in place Abdominal x-rays on the 26 show distention small bowel: Plan Repeat an abdominal x-ray in the morning Daily Dulcolax suppositories Continue with PT OT attempt to increase activity as able Continue bowel stimulant program Trickle feed using dobbhoff Dictating a progress note for Dr. small rounding on behalf of Dr. Lofton The above impression and plan of care have been discussed and directed by signing physician. Windy Lance nurse practitioner acting as scribe for signing physician.
[2017-12-30 17:58] LABS: Glucose,Whole Blood 132 mg/dL (75-99)
--- NOTE | 2017-12-30 20:19 | P.PN ---
Subjective Progress Note Date: 12/29/17 Progress note being dictated for Dr. Middleton. Interval history: This is 67-year-old female status post CABG, mitral valve replacement, status post multiple blood products transfusions. Remains vent dependent on 40% FiO2/+5 of PEEP. Chest x-ray reporting fluid overload, improvement in volume status, aeration.Maintained on norepinephrine, Primacor, dopamine and insulin drip. Cardiac index 2.7. Telemetry atrial flutter/sinus tach. Tube feeding initiated via OG tube. Hemoglobin 7.3, Platelets decreased to 64 today, maintained on low-dose aspirin. Review systems unable to obtain as patient sedated and on mechanical ventilation. Active Medications Albuterol/Ipratropium (Duoneb 0.5 Mg-3 Mg/3 Ml Soln) 3 ml INHALATION RT-Q4H [facility] Last Admin: 11/29/17 15:17 Dose: 3 ml Albuterol/Ipratropium (Duoneb 0.5 Mg-3 Mg/3 Ml Soln) 3 ml INHALATION RT-Q2H PRN PRN Reason: Shortness Of Breath Or Wheezing Amiodarone HCl (Cordarone) 200 mg PO BID [facility] Aspirin (Aspirin) 81 mg PO DAILY [facility] Last Admin: 11/29/17 08:54 Dose: 81 mg Atorvastatin Calcium (Lipitor) 40 mg PO DAILY [facility] Last Admin: 11/29/17 08:54 Dose: 40 mg Benzocaine/Menthol (Cepacol Lozenge) 1 each MUCOUS MEM Q2H PRN PRN Reason: Sore Throat Bisacodyl (Dulcolax) 10 mg RECTAL DAILY PRN PRN Reason: Constipation Chlorhexidine Gluconate (Peridex) 15 ml MUCOUS MEM BID [facility] Last Admin: 11/29/17 08:48 Dose: 15 ml Furosemide (Lasix) 40 mg IV ONCE ONE Stop: 11/29/17 20:01 Propofol 1,000 mg/ IV Solution 100 mls @ 0 mls/hr IV .Q0M [facility]; Titrate PRN Reason: Protocol Last Admin: 11/29/17 17:54 Dose: 26.13 mcg/kg/min, 17.2 mls/hr Norepinephrine Bitartrate (Levophed-0.9% Nacl 16 Mg/250ml Pmx) 16 mg in 250 mls @ 0 mls/hr IV .Q0M [facility]; Titrate PRN Reason: Protocol Last Admin: 11/29/17 17:54 Dose: 2 mcg/min, 1.875 mls/hr Sodium Chloride (Saline 0.45%) 1,000 mls @ 30 mls/hr IV .Q24H [facility] Last Admin: 11/29/17 10:28 Dose: Not Given Milrinone Lactate/Dextrose 20 (mg/ IV Solution) 100 mls @ 6.58 mls/hr IV .[id number] [facility] PRN Reason: 0.2 MCG/KG/MIN Last Admin: 11/29/17 15:38 Dose: 0.2 mcg/kg/min, 6.58 mls/hr Insulin Aspart (Novolog) 0 unit SQ Q6HR [facility] PRN Reason: Protocol Last Admin: 11/29/17 12:36 Dose: Not Given Magnesium Hydroxide (Milk Of Magnesia) 2,400 mg PO BID PRN PRN Reason: Constipation Metoprolol Tartrate (Lopressor) 12.5 mg PO BID [facility] Last Admin: 11/29/17 08:55 Dose: 12.5 mg Miscellaneous Information (Magnesium Per Protocol) 1 each MISCELLANE DAILY PRN ; Protocol PRN Reason: Per Protocol Miscellaneous Information (Phosphorus Per Protocol) 1 each MISCELLANE DAILY PRN ; Protocol PRN Reason: Per Protocol Miscellaneous Information (Potassium Per Protocol) 1 each MISCELLANE DAILY PRN ; Protocol PRN Reason: Per Protocol Miscellaneous Information (Potassium Per Protocol) 1 each MISCELLANE DAILY PRN ; Protocol PRN Reason: Per Protocol Morphine Sulfate (Morphine Oral Dana 2mg/Ml) 6 mg PO Q2H PRN PRN Reason: Severe Pain Ondansetron HCl (Zofran) 4 mg IVP Q6HR PRN PRN Reason: Nausea And Vomiting Pantoprazole Sodium (Protonix) 40 mg IVP DAILY [facility] Last Admin: 11/29/17 08:55 Dose: 40 mg Senna/Docusate Sodium (Senokot-S) 2 each PO HS [facility] Last Admin: 11/28/17 20:41 Dose: 2 each Sodium Chloride (Saline Flush) 10 ml IV BID [facility] Last Admin: 11/29/17 08:56 Dose: 10 ml 11/30/2017 Chest x-ray reporting increased congestion, received additional Lasix. extubated this morning, currently maintained on BiPAP. Norepinephrine weaned off this morning. Maintained on Primacor, cardiac index 2.6. Received 1 dose of Lasix IV push. Renal function improving. Hemoglobin 7, platelets increased to 74. Atrial flutter per telemetry. Review systems unable to obtain as patient BiPAP dependent. Active Medications Generic Name Dose Route Start Last Admin Trade Name Freq PRN Reason Stop Dose Admin Albuterol/Ipratropium 3 ml 11/25/17 20:00 11/30/17 15:23 Duoneb 0.5 Mg-3 Mg/3 Ml Soln INHALATION 3 ml RT-Q4H [facility]LEE Administration Albuterol/Ipratropium 3 ml 11/26/17 17:53 Duoneb 0.5 Mg-3 Mg/3 Ml Soln INHALATION RT-Q2H PRN Shortness Of Breath Or Wheezing Amiodarone HCl 200 mg 11/29/17 21:00 11/30/17 08:14 Cordarone PO 200 mg BID [facility] Administration Aspirin 81 mg 11/26/17 10:15 11/30/17 08:15 Aspirin PO 81 mg DAILY [facility] Administration Atorvastatin Calcium 40 mg 11/26/17 09:00 11/30/17 08:14 Lipitor PO 40 mg DAILY [facility] Administration Benzocaine/Menthol 1 each 11/25/17 19:03 Cepacol Lozenge MUCOUS MEM Q2H PRN Sore Throat Bisacodyl 10 mg 11/26/17 17:52 Dulcolax RECTAL DAILY PRN Constipation Fondaparinux 2.5 mg 11/30/17 11:30 11/30/17 13:23 Arixtra SQ 2.5 mg DAILY [facility] Administration Norepinephrine Bitartrate 16 mg in 250 mls @ 0 mls/hr 11/26/17 04:15 11:58 Levophed-0.9% Nacl 16 Mg/250ml Pmx IV 0 mcg/min .Q0M [facility] 0 mls/hr Protocol Titration Titrate Sodium Chloride 1,000 mls @ 10 mls/hr 11/26/17 10:15 11/30/17 12:51 Saline 0.45% IV Not Given .Q24H [facility] Milrinone Lactate/Dextrose 20 100 mls @ 6.58 mls/hr 11/29/17 15:00 11/30/17 08:16 mg/ IV Solution IV 0.2 mcg/kg/min .[id number] [facility] 6.58 mls/hr 0.2 MCG/KG/MIN Infusion Insulin Aspart 0 unit 11/29/17 12:00 11/30/17 12:50 Novolog SQ Not Given Q6HR [facility] Protocol Magnesium Hydroxide 2,400 mg 11/26/17 17:53 Milk Of Magnesia PO BID PRN Constipation Metoprolol Tartrate 12.5 mg 11/26/17 09:00 11/30/17 08:15 Lopressor PO 12.5 mg BID CAR[facility]E Administration Miscellaneous Information 1 each 11/25/17 19:03 Magnesium Per Protocol MISCELLANE DAILY PRN Per Protocol Protocol Miscellaneous Information 1 each 11/25/17 19:03 Phosphorus Per Protocol MISCELLANE DAILY PRN Per Protocol Protocol Miscellaneous Information 1 each 11/25/17 19:03 Potassium Per Protocol MISCELLANE DAILY PRN Per Protocol Protocol Miscellaneous Information 1 each 11/29/17 12:01 Potassium Per Protocol MISCELLANE DAILY PRN Per Protocol Protocol Morphine Sulfate 6 mg 11/29/17 13:31 Morphine Oral Dana 2mg/Ml PO Q2H PRN Severe Pain Ondansetron HCl 4 mg 11/25/17 19:03 Zofran IVP Q6HR PRN Nausea And Vomiting Pantoprazole Sodium 40 mg 11/26/17 09:00 11/30/17 08:15 Protonix IVP 40 mg DAILY [facility] Administration Senna/Docusate Sodium 2 each 11/26/17 21:00 11/29/17 20:40 Senokot-S PO 2 each HS [facility]E Administration Sodium Chloride 10 ml 11/25/17 21:00 11/30/17 08:15 Saline Flush IV 10 ml BID CAR[facility]E Administration 12/01/2017 Breathing improving, weaned off of BiPAP and down to 6 L high flow. Wheezing resolved. Chest x-ray reports improvement. Staff reports patient appeared to be choking on pills last night, speech therapy consulted. Receiving one unit of packed RBCs for hemoglobin of 6.7. Mediastinal chest tubes discontinued, left pleural chest tube remains. Maintained on Primacor. Telemetry atrial flutter. Review of systems: CONSTITUTIONAL: No fever, no malaise HEENT: No recent visual problems or hearing problems. Denied any sore throat. CARDIOVASCULAR: No chest pain, no palpitations, no syncope. PULMONARY: Improving shortness of breath, no cough, no hemoptysis. GASTROINTESTINAL: No diarrhea, no nausea, no vomiting, no abdominal pain. Normoactive bowel sounds. NEUROLOGICAL: No headaches, diffuse weakness, no numbness. HEMATOLOGICAL: Denies any bleeding or petechiae. GENITOURINARY: Denies any burning micturition, frequency, or urgency. ENDOCRINE: Denies any polyuria or polydipsia. PSYCHIATRIC: No anxiety, no depression Active Medications Hydrocodone Bitart/Acetaminophen ([place] 5-325) 1 each PO Q4HR PRN PRN Reason: MILD TO MODERATE Pain Last Admin: 12/01/17 22:44 Dose: 1 each Hydrocodone Bitart/Acetaminophen ([place] 5-325) 2 each PO Q4HR PRN PRN Reason: MODERATE TO SEVERE Pain Albuterol/Ipratropium (Duoneb 0.5 Mg-3 Mg/3 Ml Soln) 3 ml INHALATION RT-Q4H [facility] Last Admin: 12/02/17 15:06 Dose: 3 ml Albuterol/Ipratropium (Duoneb 0.5 Mg-3 Mg/3 Ml Soln) 3 ml INHALATION RT-Q2H PRN PRN Reason: Shortness Of Breath Or Wheezing Last Admin: 12/01/17 18:09 Dose: 3 ml Amiodarone HCl (Cordarone) 200 mg PO BID [facility] Last Admin: 12/02/17 08:10 Dose: 200 mg Aspirin (Aspirin) 81 mg PO DAILY [facility] Last Admin: 12/02/17 08:10 Dose: 81 mg Atorvastatin Calcium (Lipitor) 40 mg PO DAILY [facility] Last Admin: 12/02/17 08:10 Dose: 40 mg Benzocaine/Menthol (Cepacol Lozenge) 1 each MUCOUS MEM Q2H PRN PRN Reason: Sore Throat Bisacodyl (Dulcolax) 10 mg RECTAL DAILY PRN PRN Reason: Constipation Budesonide (Pulmicort) 1 mg INHALATION RT-BID [facility] Last Admin: 12/02/17 07:19 Dose: 1 mg Fondaparinux (Arixtra) 2.5 mg SQ DAILY [facility] Last Admin: 12/02/17 08:10 Dose: 2.5 mg Formoterol Fumarate (Perforomist) 20 mcg INHALATION RT-BID [facility] Last Admin: 12/02/17 07:36 Dose: 20 mcg Norepinephrine Bitartrate (Levophed-0.9% Nacl 16 Mg/250ml Pmx) 16 mg in 250 mls @ 0 mls/hr IV .Q0M [facility]; Titrate PRN Reason: Protocol Last Titration: 11/30/17 11:58 Dose: 0 mcg/min, 0 mls/hr Sodium Chloride (Saline 0.45%) 1,000 mls @ 10 mls/hr IV .Q24H [facility] Last Admin: 12/01/17 14:04 Dose: 10 mls/hr Milrinone Lactate/Dextrose 20 (mg/ IV Solution) 100 mls @ 6.58 mls/hr IV .[id number] [facility] PRN Reason: 0.2 MCG/KG/MIN Last Admin: 12/02/17 08:57 Dose: 0.2 mcg/kg/min, 6.58 mls/hr Insulin Aspart (Novolog) 0 unit SQ Q6HR [facility] PRN Reason: Protocol Last Admin: 12/02/17 12:53 Dose: Not Given Magnesium Hydroxide (Milk Of Magnesia) 2,400 mg PO BID PRN PRN Reason: Constipation Methylprednisolone Sodium Succinate (Solu-Medrol) 30 mg IV Q8HR [facility] Last Admin: 12/02/17 08:10 Dose: 30 mg Metoprolol Tartrate (Lopressor) 25 mg PO BID [facility] Last Admin: 12/02/17 08:59 Dose: 25 mg Miscellaneous Information (Magnesium Per Protocol) 1 each MISCELLANE DAILY PRN ; Protocol PRN Reason: Per Protocol Miscellaneous Information (Phosphorus Per Protocol) 1 each MISCELLANE DAILY PRN ; Protocol PRN Reason: Per Protocol Miscellaneous Information (Potassium Per Protocol) 1 each MISCELLANE DAILY PRN ; Protocol PRN Reason: Per Protocol Miscellaneous Information (Potassium Per Protocol) 1 each MISCELLANE DAILY PRN ; Protocol PRN Reason: Per Protocol Ondansetron HCl (Zofran) 4 mg IVP Q6HR PRN PRN Reason: Nausea And Vomiting Pantoprazole Sodium (Protonix) 40 mg IVP DAILY [facility] Last Admin: 12/02/17 08:10 Dose: 40 mg Senna/Docusate Sodium (Senokot-S) 2 each PO HS [facility] Last Admin: 12/01/17 21:55 Dose: 2 each Sodium Chloride (Saline Flush) 10 ml IV BID [facility] Last Admin: 12/02/17 12:51 Dose: 10 ml 12/02/17 Much more alert today. Oxygen weaned further down to 5 L nasal cannula, maintaining O2 sats in the high 90s. Pleural chest tube discontinued. Chest x- ray reporting probable right lower lobe atelectasis/effusion. Underwent modified barium swallow, with recommendations of regular diet, thin liquids, chin tuck, no straw, small bites/sepsis/sips; no impairment with exception of mild transient penetration with thin liquids which patient independently cleared. Yesterday receive 1 unit of packed RBCs with current hemoglobin 8. Weaning of Primacor in progress. 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 Review of systems: CONSTITUTIONAL: No fever, no malaise, no fatigue. HEENT: No recent visual problems or hearing problems. Denied any sore throat. CARDIOVASCULAR: No chest pain, no palpitations, no syncope. PULMONARY: Minimal shortness of breath, no cough, no hemoptysis. GASTROINTESTINAL: No diarrhea, no nausea, no vomiting, no abdominal pain. Normoactive bowel sounds. NEUROLOGICAL: No headaches, no weakness, no numbness. HEMATOLOGICAL: Denies any bleeding or petechiae. GENITOURINARY: Denies any burning micturition, frequency, or urgency. MUSCULOSKELETAL/RHEUMATOLOGICAL: Denies any joint pain, swelling, or any muscle pain. ENDOCRINE: Denies any polyuria or polydipsia. PSYCHIATRIC: No anxiety, no depression The rest of the 14 point review of systems is negative Active Medications Generic Name Dose Route Start Last Admin Trade Name Freq PRN Reason Stop Dose Admin Hydrocodone Bitart/Acetaminophen 1 each 12/01/17 12:20 12/01/17 22:44 [place] 5-325 PO 1 each Q4HR PRN Administration MILD TO MODERATE Pain Hydrocodone Bitart/Acetaminophen 2 each 12/01/17 12:20 [place] 5-325 PO Q4HR PRN MODERATE TO SEVERE Pain Albuterol/Ipratropium 3 ml 11/25/17 20:00 12/02/17 15:06 Duoneb 0.5 Mg-3 Mg/3 Ml Soln INHALATION 3 ml RT-Q4H [facility] Administration Albuterol/Ipratropium 3 ml 11/26/17 17:53 12/01/17 18:09 Duoneb 0.5 Mg-3 Mg/3 Ml Soln INHALATION 3 ml RT-Q2H PRN Administration Shortness Of Breath Or Wheezing Amiodarone HCl 200 mg 11/29/17 21:00 12/02/17 08:10 Cordarone PO 200 mg BID [facility] Administration Aspirin 81 mg 11/26/17 10:15 12/02/17 08:10 Aspirin PO 81 mg DAILY [facility] Administration Atorvastatin Calcium 40 mg 11/26/17 09:00 12/02/17 08:10 Lipitor PO 40 mg DAILY [facility] Administration Benzocaine/Menthol 1 each 11/25/17 19:03 Cepacol Lozenge MUCOUS MEM Q2H PRN Sore Throat Bisacodyl 10 mg 11/26/17 17:52 Dulcolax RECTAL DAILY PRN Constipation Budesonide 1 mg 12/01/17 20:00 12/02/17 07:19 Pulmicort INHALATION 1 mg RT-BID [facility] Administration Fondaparinux 2.5 mg 11/30/17 11:30 12/02/17 08:10 Arixtra SQ 2.5 mg DAILY [facility] Administration Formoterol Fumarate 20 mcg 12/01/17 20:00 12/02/17 07:36 Perforomist INHALATION 20 mcg RT-BID [facility] Administration Norepinephrine Bitartrate 16 mg in 250 mls @ 0 mls/hr 11/26/17 04:15 11:58 Levophed-0.9% Nacl 16 Mg/250ml Pmx IV 0 mcg/min .Q0M [facility] 0 mls/hr Protocol Titration Titrate Sodium Chloride 1,000 mls @ 10 mls/hr 11/26/17 10:15 12/02/17 15:41 Saline 0.45% IV Not Given .Q24H [facility] Milrinone Lactate/Dextrose 20 100 mls @ 6.58 mls/hr 11/29/17 15:00 12/02/17 08:57 mg/ IV Solution IV 0.2 mcg/kg/min .[id number] [facility] 6.58 mls/hr 0.2 MCG/KG/MIN Administration Insulin Aspart 0 unit 11/29/17 12:00 12/02/17 12:53 Novolog SQ Not Given Q6HR [facility] Protocol Magnesium Hydroxide 2,400 mg 11/26/17 17:53 Milk Of Magnesia PO BID PRN Constipation Methylprednisolone Sodium Succinate 30 mg 12/01/17 16:00 12/02/17 08:10 Solu-Medrol IV 30 mg Q8HR [facility] Administration Metoprolol Tartrate 25 mg 12/02/17 09:00 12/02/17 08:59 Lopressor PO 25 mg BID [facility] Administration Miscellaneous Information 1 each 11/25/17 19:03 Magnesium Per Protocol MISCELLANE DAILY PRN Per Protocol Protocol Miscellaneous Information 1 each 11/25/17 19:03 Phosphorus Per Protocol MISCELLANE DAILY PRN Per Protocol Protocol Miscellaneous Information 1 each 11/25/17 19:03 Potassium Per Protocol MISCELLANE DAILY PRN Per Protocol Protocol Miscellaneous Information 1 each 11/29/17 12:01 Potassium Per Protocol MISCELLANE DAILY PRN Per Protocol Protocol Ondansetron HCl 4 mg 11/25/17 19:03 Zofran IVP Q6HR PRN Nausea And Vomiting Pantoprazole Sodium 40 mg 11/26/17 09:00 12/02/17 08:10 Protonix IVP 40 mg DAILY [facility] Administration Senna/Docusate Sodium 2 each 11/26/17 21:00 12/01/17 21:55 Senokot-S PO 2 each HS [facility] Administration Sodium Chloride 10 ml 11/25/17 21:00 12/02/17 12:51 Saline Flush IV 10 ml BID CAR[facility]E Administration 12/03/17 maintained on nebulized bronchodilators, steroids,patient tachypneic, requiring BiPap throughout today off and on. Chest x-ray suggestive of fluid overload. Received additional Lasix. Maintained on oral amiodarone, remains in a-flutter. Overdrive atrial pacing attempted unsuccessfully. Digoxin 2 ordered. Pacer wires discontinued today. Stool at bedside with PT OT, remains extremely weak. Primacor weaned off yesterday. 2017 currently in atrial fibrillation with heart rates up into the 150s, scheduled for cardioversion tomorrow. INR 2.2. Patient currently wearing BiPAP ,has required on and off all day. Chest ultrasound reporting bilateral pleural effusions, larger on the right. Thoracentesis on hold, awaiting cardioversion.Chest x-ray reporting prominent interstitium and central vascularity, increased bibasilar density. Attempting diuresing with Lasix and Zaroxolyn. Review systems unable to obtain as patient currently on BiPAP. Active Medications Hydrocodone Bitart/Acetaminophen ([place] 5-325) 1 each PO Q4HR PRN PRN Reason: MILD TO MODERATE Pain Last Admin: 12/07/17 10:48 Dose: 1 each Hydrocodone Bitart/Acetaminophen ([place] 5-325) 2 each PO Q4HR PRN PRN Reason: MODERATE TO SEVERE Pain Last Admin: 12/07/17 16:39 Dose: 2 each Albuterol/Ipratropium (Duoneb 0.5 Mg-3 Mg/3 Ml Soln) 3 ml INHALATION RT-Q2H PRN PRN Reason: Shortness Of Breath Or Wheezing Last Admin: 12/01/17 18:09 Dose: 3 ml Albuterol/Ipratropium (Duoneb 0.5 Mg-3 Mg/3 Ml Soln) 3 ml INHALATION RT-QID [facility] Last Admin: 12/07/17 16:43 Dose: 3 ml Amiodarone HCl (Cordarone) 200 mg PO BID [facility] Aspirin (Aspirin) 81 mg PO DAILY [facility] Last Admin: 12/07/17 08:53 Dose: 81 mg Atorvastatin Calcium (Lipitor) 40 mg PO DAILY [facility] Last Admin: 12/07/17 08:53 Dose: 40 mg Benzocaine/Menthol (Cepacol Lozenge) 1 each MUCOUS MEM Q2H PRN PRN Reason: Sore Throat Bisacodyl (Dulcolax) 10 mg RECTAL DAILY PRN PRN Reason: Constipation Budesonide (Pulmicort) 1 mg INHALATION RT-BID [facility] Last Admin: 12/07/17 08:36 Dose: 1 mg Escitalopram Oxalate (Lexapro) 10 mg PO HS [facility] Furosemide (Lasix) 40 mg IV Q12HR [facility] Last Admin: 12/07/17 08:33 Dose: 40 mg Piperacillin/Tazobactam/ (Dextrose 3.375 gm/ IV Solution) 50 mls @ 12.5 mls/hr IVPB Q8HR [facility] Last Admin: 12/07/17 16:39 Dose: 12.5 mls/hr Sodium Chloride (Saline 0.9%) 1,000 mls @ 20 mls/hr IV .Q24H [facility] Last Admin: 12/07/17 13:00 Dose: 20 mls/hr Lactated Ringer's (Lactated Ringers) 1,000 mls @ 20 mls/hr IV .Q24H [facility] Last Admin: 12/06/17 20:45 Dose: 20 mls/hr Insulin Aspart (Novolog) 0 unit SQ ACHS [facility] PRN Reason: Protocol Last Admin: 12/07/17 13:01 Dose: 2 unit Magnesium Hydroxide (Milk Of Magnesia) 2,400 mg PO BID PRN PRN Reason: Constipation Methylprednisolone Sodium Succinate (Solu-Medrol) 30 mg IV Q8HR [facility] Last Admin: 12/07/17 16:39 Dose: 30 mg Metolazone (Zaroxolyn) 5 mg PO DAILY [facility] Last Admin: 12/07/17 08:53 Dose: 5 mg Metoprolol Tartrate (Lopressor) 50 mg PO BID [facility] Last Admin: 12/07/17 08:53 Dose: 50 mg Miscellaneous Information (Magnesium Per Protocol) 1 each MISCELLANE DAILY PRN ; Protocol PRN Reason: Per Protocol Miscellaneous Information (Phosphorus Per Protocol) 1 each MISCELLANE DAILY PRN ; Protocol PRN Reason: Per Protocol Miscellaneous Information (Potassium Per Protocol) 1 each MISCELLANE DAILY PRN ; Protocol PRN Reason: Per Protocol Ondansetron HCl (Zofran) 4 mg IVP Q6HR PRN PRN Reason: Nausea And Vomiting Pantoprazole Sodium (Protonix) 40 mg PO AC-BRKFST [facility] Last Admin: 12/07/17 08:53 Dose: 40 mg Senna/Docusate Sodium (Senokot-S) 2 each PO HS [facility] Last Admin: 12/06/17 20:29 Dose: 2 each Sodium Chloride (Saline Flush) 10 ml IV BID [facility] Last Admin: 12/07/17 10:48 Dose: 10 ml 12/07/2017 Underwent successful cardioversion this morning,360J X1, remains in sinus rhythm. Currently wearing BiPAP. Nonproductive cough. Diuresing well on Lasix and Zaroxolyn with 24-hour I&O reflecting a negative fluid balance. Chest x-ray reporting stable bilateral areas of infiltrate and pleural effusions , possible CHF, possible pneumonia. INR 3.8, afebrile, WBC 17. Maintained on Zosyn. Sternal wound drainage, cultures sent. 12/08/2017 Cardioverted yesterday, remains in sinus rhythm .continues requiring BiPAP for majority of morning. Echo reporting-limited study for assessment of pericardial effusion, small generalized pericardial effusion, low normal LV function, EF 50-55%. Chest CT reporting sternal dehiscence, moderate to large pericardial effusion, possible mass effect onto the left ventricle, no significant right atrial dilatation to clearly indicate tamponade, moderate left pleural effusion with adjacent complete left lower lobar and inferior lingular collapse, small right pleural effusion, right basilar subsegmental atelectasis. Chest x-ray noted. Blood sugars controlled. INR 4.8, received vitamin K this morning. Diuresing well on Lasix IV push, Zaroxolyn. 24-hour I& O reflecting a negative fluid balance, decreased weight. Midsternal incision open, draining large amount of serosanguineous drainage. Currently maintained on Zosyn. Wound cultures pending. Afebrile. Review systems unable to obtain as patient currently on BiPAP. Active Medications Generic Name Dose Route Start Last Admin Trade Name Freq PRN Reason Stop Dose Admin Hydrocodone Bitart/Acetaminophen 1 each 12/01/17 12:20 12/08/17 06:26 [place] 5-325 PO 1 each Q4HR PRN Administration MILD TO MODERATE Pain Hydrocodone Bitart/Acetaminophen 2 each 12/01/17 12:20 12/08/17 18:41 [place] 5-325 PO 2 each Q4HR PRN Administration MODERATE TO SEVERE Pain Acetazolamide Sodium 250 mg 12/08/17 09:15 12/08/17 11:16 Diamox IV 12/08/17 21:01 250 mg Q12HR [facility] Administration Albuterol/Ipratropium 3 ml 11/26/17 17:53 12/08/17 05:16 Duoneb 0.5 Mg-3 Mg/3 Ml Soln INHALATION 3 ml RT-Q2H PRN Administration Shortness Of Breath Or Wheezing Albuterol/Ipratropium 3 ml 12/03/17 08:00 12/08/17 15:38 Duoneb 0.5 Mg-3 Mg/3 Ml Soln INHALATION 3 ml RT-QID [facility] Administration Amiodarone HCl 200 mg 12/08/17 09:00 12/08/17 08:24 Cordarone PO 200 mg BID [facility] Administration Aspirin 81 mg 11/26/17 10:15 12/08/17 08:24 Aspirin PO 81 mg DAILY [facility] Administration Atorvastatin Calcium 40 mg 11/26/17 09:00 12/08/17 08:25 Lipitor PO 40 mg DAILY [facility] Administration Benzocaine/Menthol 1 each 11/25/17 19:03 Cepacol Lozenge MUCOUS MEM Q2H PRN Sore Throat Bisacodyl 10 mg 11/26/17 17:52 Dulcolax RECTAL DAILY PRN Constipation Budesonide 1 mg 12/01/17 20:00 12/08/17 09:26 Pulmicort INHALATION 1 mg RT-BID [facility] Administration Escitalopram Oxalate 10 mg 12/07/17 21:00 12/07/17 20:10 Lexapro PO 10 mg HS [facility]E Administration Piperacillin/Tazobactam/ 50 mls @ 12.5 mls/hr 12/04/17 16:00 12/08/17 16:11 Dextrose 3.375 gm/ IV Solution IVPB 12.5 mls/hr Q8HR [facility] Administration Sodium Chloride 1,000 mls @ 20 mls/hr 12/06/17 10:45 12/08/17 13:47 Saline 0.9% IV Not Given .Q24H [facility] Insulin Aspart 0 unit 12/02/17 21:00 12/08/17 17:46 Novolog SQ 1 unit ACHS [facility] Administration Protocol Magnesium Hydroxide 2,400 mg 11/26/17 17:53 Milk Of Magnesia PO BID PRN Constipation Metoprolol Tartrate 50 mg 12/06/17 21:00 12/08/17 08:24 Lopressor PO 50 mg BID [facility] Administration Miscellaneous Information 1 each 11/25/17 19:03 Magnesium Per Protocol MISCELLANE DAILY PRN Per Protocol Protocol Miscellaneous Information 1 each 11/25/17 19:03 Phosphorus Per Protocol MISCELLANE DAILY PRN Per Protocol Protocol Miscellaneous Information 1 each 11/25/17 19:03 Potassium Per Protocol MISCELLANE DAILY PRN Per Protocol Protocol Ondansetron HCl 4 mg 11/25/17 19:03 Zofran IVP Q6HR PRN Nausea And Vomiting Pantoprazole Sodium 40 mg 12/05/17 07:30 12/08/17 08:25 Protonix PO 40 mg AC-[id number] [facility] Administration Senna/Docusate Sodium 2 each 11/26/17 21:00 12/07/17 20:16 Senokot-S PO 2 each HS [facility] Administration Sodium Chloride 10 ml 11/25/17 21:00 12/08/17 11:16 Saline Flush IV 10 ml BID [facility] Administration 12/09/17 Remains in sinus rhythm. mostly BiPAP dependent. Incentive spirometer up to 700 -750. Chest x-ray reporting improving moderate pleural effusion, cardiomegaly. Sternal wound culture positive for gram-negative bacilli. Maintained on Zosyn. Diet intake fair. Blood sugars controlled. Review systems unable to be performed as patient on BiPAP Active Medications Hydrocodone Bitart/Acetaminophen ([place] 5-325) 1 each PO Q4HR PRN PRN Reason: MILD TO MODERATE Pain Last Admin: 12/09/17 10:03 Dose: 1 each Hydrocodone Bitart/Acetaminophen ([place] 5-325) 2 each PO Q4HR PRN PRN Reason: MODERATE TO SEVERE Pain Last Admin: 12/09/17 14:51 Dose: 2 each Albuterol/Ipratropium (Duoneb 0.5 Mg-3 Mg/3 Ml Soln) 3 ml INHALATION RT-Q2H PRN PRN Reason: Shortness Of Breath Or Wheezing Last Admin: 12/08/17 05:16 Dose: 3 ml Albuterol/Ipratropium (Duoneb 0.5 Mg-3 Mg/3 Ml Soln) 3 ml INHALATION RT-QID [facility] Last Admin: 12/09/17 15:42 Dose: 3 ml Amiodarone HCl (Cordarone) 200 mg PO BID [facility] Last Admin: 12/09/17 08:12 Dose: 200 mg Aspirin (Aspirin) 81 mg PO DAILY [facility] Last Admin: 12/09/17 08:13 Dose: 81 mg Atorvastatin Calcium (Lipitor) 40 mg PO DAILY [facility] Last Admin: 12/09/17 08:13 Dose: 40 mg Benzocaine/Menthol (Cepacol Lozenge) 1 each MUCOUS MEM Q2H PRN PRN Reason: Sore Throat Bisacodyl (Dulcolax) 10 mg RECTAL DAILY PRN PRN Reason: Constipation Budesonide (Pulmicort) 1 mg INHALATION RT-BID [facility] Last Admin: 12/09/17 07:45 Dose: 1 mg Escitalopram Oxalate (Lexapro) 10 mg PO [facility] Last Admin: 12/08/17 20:33 Dose: 10 mg Piperacillin/Tazobactam/ (Dextrose 3.375 gm/ IV Solution) 50 mls @ 12.5 mls/hr IVPB Q8HR [facility] Last Admin: 12/09/17 08:16 Dose: 12.5 mls/hr Sodium Chloride (Saline 0.9%) 1,000 mls @ 20 mls/hr IV .Q24H [facility] Last Admin: 12/09/17 08:17 Dose: 20 mls/hr Insulin Aspart (Novolog) 0 unit SQ ACHS [facility] PRN Reason: Protocol Last Admin: 12/09/17 12:23 Dose: Not Given Magnesium Hydroxide (Milk Of Magnesia) 2,400 mg PO BID PRN PRN Reason: Constipation Metoprolol Tartrate (Lopressor) 50 mg PO BID [facility] Last Admin: 12/09/17 08:13 Dose: 50 mg Miscellaneous Information (Magnesium Per Protocol) 1 each MISCELLANE DAILY PRN ; Protocol PRN Reason: Per Protocol Miscellaneous Information (Phosphorus Per Protocol) 1 each MISCELLANE DAILY PRN ; Protocol PRN Reason: Per Protocol Miscellaneous Information (Potassium Per Protocol) 1 each MISCELLANE DAILY PRN ; Protocol PRN Reason: Per Protocol Ondansetron HCl (Zofran) 4 mg IVP Q6HR PRN PRN Reason: Nausea And Vomiting Pantoprazole Sodium (Protonix) 40 mg PO AC-BRKFST [facility] Last Admin: 12/09/17 08:11 Dose: 40 mg Senna/Docusate Sodium (Senokot-S) 2 each PO HS [facility] Last Admin: 12/08/17 20:37 Dose: 2 each Sodium Chloride (Saline Flush) 10 ml IV BID [facility] Last Admin: 12/09/17 08:13 Dose: 10 ml 12/13/17 maintained on Merrem and vancomycin. BiPAP dependent. Worsening chest x-ray, chest CT reporting near complete collapse of left lung, enlarging moderate to large pericardial effusion. Echo pending. Multiple episodes of diarrhea. Atrial flutter with RVR, Review systems unable to be performed as patient on BiPAP Active Medications Generic Name Dose Route Start Last Admin Trade Name Freq PRN Reason Stop Dose Admin Hydrocodone Bitart/Acetaminophen 1 each 12/01/17 12:20 12/13/17 08:08 [place] 5-325 PO 1 each Q4HR PRN Administration MILD TO MODERATE Pain Hydrocodone Bitart/Acetaminophen 2 each 12/01/17 12:20 12/13/17 15:08 [place] 5-325 PO 2 each Q4HR PRN Administration MODERATE TO SEVERE Pain Albuterol/Ipratropium 3 ml 11/26/17 17:53 12/08/17 05:16 Duoneb 0.5 Mg-3 Mg/3 Ml Soln INHALATION 3 ml RT-Q2H PRN Administration Shortness Of Breath Or Wheezing Albuterol/Ipratropium 3 ml 12/03/17 08:00 12/13/17 16:02 Duoneb 0.5 Mg-3 Mg/3 Ml Soln INHALATION Not Given RT-QID [facility] Amiodarone HCl 200 mg 12/11/17 20:00 12/13/17 09:12 Cordarone PO 200 mg BID@0800,2000 [facility] Administration Aspirin 81 mg 11/26/17 10:15 12/13/17 09:13 Aspirin PO 81 mg DAILY [facility] Administration Atorvastatin Calcium 40 mg 11/26/17 09:00 12/13/17 09:13 Lipitor PO 40 mg DAILY [facility] Administration Benzocaine/Menthol 1 each 11/25/17 19:03 Cepacol Lozenge MUCOUS MEM Q2H PRN Sore Throat Bisacodyl 10 mg 11/26/17 17:52 12/12/17 17:45 Dulcolax RECTAL 10 mg DAILY PRN Administration Constipation Budesonide 1 mg 12/01/17 20:00 12/13/17 07:46 Pulmicort INHALATION 1 mg RT-BID [facility] Administration Escitalopram Oxalate 10 mg 12/07/17 21:00 12/12/17 20:16 Lexapro PO 10 mg HS [facility] Administration Heparin Sodium (Porcine) 5,000 unit 12/10/17 16:00 12/13/17 09:14 Heparin SQ 5,000 unit Q8HR [facility] Administration Sodium Chloride 1,000 mls @ 20 mls/hr 12/06/17 10:45 12/13/17 09:49 Saline 0.9% IV 20 mls/hr .Q24H [facility] Administration Meropenem 1 gm/ Sodium 100 mls @ 100 mls/hr 12/09/17 22:00 12/13/17 09:46 Chloride IVPB 100 mls/hr Q8HR [facility] Administration Vancomycin HCl 1,750 mg/ 250 mls @ 125 mls/hr 12/13/17 14:00 12/13/17 14:15 Sodium Chloride IVPB 125 mls/hr Q12HR@0000,1200 [facility] Administration Insulin Aspart 0 unit 12/02/17 21:00 12/13/17 12:34 Novolog SQ Not Given ACHS [facility] Protocol Lactobacillus Acidoph/Bulgaricus 1 each 12/13/17 16:00 Lactinex PO TID [facility] Magnesium Hydroxide 2,400 mg 11/26/17 17:53 Milk Of Magnesia PO BID PRN Constipation Metoprolol Tartrate 50 mg 12/11/17 22:00 12/13/17 09:13 Lopressor PO 50 mg BID@1000,2200 [facility] Administration Miscellaneous Information 1 each 11/25/17 19:03 Magnesium Per Protocol MISCELLANE DAILY PRN Per Protocol Protocol Miscellaneous Information 1 each 11/25/17 19:03 Phosphorus Per Protocol MISCELLANE DAILY PRN Per Protocol Protocol Miscellaneous Information 1 each 11/25/17 19:03 Potassium Per Protocol MISCELLANE DAILY PRN Per Protocol Protocol Ondansetron HCl 4 mg 11/25/17 19:03 Zofran IVP Q6HR PRN Nausea And Vomiting Pantoprazole Sodium 40 mg 12/05/17 07:30 12/13/17 09:13 Protonix PO 40 mg AC-BRKFST [facility] Administration Senna/Docusate Sodium 2 each 11/26/17 21:00 12/12/17 20:16 Senokot-S PO 2 each HS [facility] Administration Sodium Chloride 10 ml 11/25/17 21:00 12/13/17 09:49 Saline Flush IV 10 ml BID [facility] Administration 12/14/17 maintained on Merrem and vancomycin per infectious disease .remains BiPAP dependent. Chest x-ray reporting persistent significant left lung collapse with minimal improvement. Scheduled for bronchoscopy this afternoon. INR 2.1, receiving FFP. No diarrhea today. Telemetry atrial fibrillation/ flutter, heart rate 110s to 120s. 12/15/2017 developed worsened respiratory distress despite BiPAP, diuretics, antiarrhythmics, intubated last night. Received 2 more units of FFP this morning, underwent bronchoscopy this morning; mucous plug discovered in the left lower lobe. Pleural Cultures pending. Maintained on FiO2 45%/+5 of PEEP. Continues on IV antibiotics. Currently on 2-1/2 mics of Levophed and diprovan drips. Atrial tachycardia, heart rate in the 130s. Amiodarone discontinued as per cardiology. Developed increased bleeding from wound VAC with turning during bath-Anticoagulation placed on hold. Afebrile. 12/16/17 remains vent dependent, FiO2 40%/+5 of PEEP. Sedated on Diprovan. Requiring low-dose of Levophed. Marginal urine output, received albumin last night. Tachycardia resolved, sinus rhythm per telemetry. Wound VAC dressing changed today, serosanguineous drainage. Bronchoscopy yesterday, cultures pending. Blood sugars controlled. 12/17/2017 today weaning trials of pressure support in increments of 3 hours , resting at night, FiO2 40%/+5 of PEEP. Chest x-ray reporting improvement. Currently on Levophed. Tolerating tube feeds at goal with minimal to no residual. Maintained on IV antibiotics as per infectious disease. Telemetry sinus rhythm. 12/20/17 remains vent dependent FiO2 40%/PEEP of 5. Yesterday vent weaning during the day hours, tolerated well. Wound VAC changed yesterday. Scheduled for sternal flap repair tomorrow. Maintained on IV antibiotics. T-max 99.4. Last night returned into rapid atrial flutter, Currently sinus rhythm. 12/21/2017 remains vent dependent. Telemetry sinus rhythm. Tube feeds on hold. Scheduled for sternal flap repair today. 12/22/2017 underwent flap repair/grafting yesterday with plastic surgeon. Pain controlled. Extubated this morning, maintained on BiPAP. Telemetry sinus rhythm. Albumin remains at 2.2, receiving albumin. 12/23/17 .Patient respiratory arrested while Dobbhoff attempting to be placed, returned into atrial fibrillation with RVR. Reintubated, converted back into sinus rhythm. Midsternal dressing being changed at bedside by cardiothoracic surgery. Trach and PEG being discussed as per pulmonary. 12/24/17 scheduled for tracheostomy this morning. Chest x-ray reporting progressive CHF change with bilateral effusions possible underlying pneumonia, ET tube 1 cm above osvaldo. Telemetry sinus rhythm. Levophed currently on hold. 12/27/2017 Dobbhoff recently placed, developed nausea vomiting throughout the night. Abdomen distended, tympanic.Tube feeds placed on hold, flat plate of abdomen pending. PEG tube being discussed. Passing loose stools. Denies abdominal pain .Telemetry sinus rhythm. Maintained on FiO2 35%/+ of PEEP. Tolerated CPAP for 3 hours yesterday. Yesterday and today patient received Lasix IV push, diuresed well with 24-hour I&O reflecting a negative fluid balance. Chest x-ray reporting similar findings. T-max 99.2. 12/28/2017 maintained on IV antibiotics, significant wound drainage. Afebrile. remains vent dependent, FiO2 35%/+5 of PEEP. Chest x-ray stable. Yesterday abdominal x-ray reported possible underlying ileus, obstruction. Dobbhoff tube feeds placed on hold. Follow-up Abdominal x-ray this morning reporting markedly dilated small bowel loops ,severe postoperative ileus with partial obstruction. Abdomen distended. Weaning parameters suboptimal ,no weaning trials today as per pulmonary. Hemoglobin 7.anasarca, weeping .receiving Albumin , Lasix IV push 1. 12/29/17 maintained on vancomycin, Merrem. abdomen less distended today.small bowel movements 2 yesterday, on lactulose. TPN to be initiated today. Wound VAC /dressing changed this a.m.remains vent dependent and 35% FiO2/+5 of PEEP.pressure-support 2hr.hemoglobin 7.2.evaluated by general surgery with recommendations of no abdominal surgical intervention at this time. Objective - Vital Signs Vital signs: Vital Signs Temp 97.9 F 12/29/17 16:00 Pulse 88 12/29/17 17:00 Resp 20 12/29/17 17:00 BP 116/54 12/19/17 10:00 Pulse Ox 100 12/29/17 17:00 Intake & Output 12/28/17 12/29/17 12/29/17 18:59 06:59 18:59 Intake Total 015 039 5919 Output Total 1585 1050 1650 Balance -1292 -900 -456 Weight 105.5 kg 105.5 kg Intake: IV 129 218 1930 Albumin Human 25% 50 ml 50 50 In Empty Bag 1 bag @ 100 mls/hr IVPB ONCE ONE Rx#: [id number] Dextrose 5%-0.45% NaCl 1, 110 120 100 000 ml @ 10 mls/hr IV . Q24H [facility] Rx#:[id number] Fluconazole in NaCl,Iso- 100 100 Osm 200 mg In Saline 1 100ml.bag @ 100 mls/hr IVPB DAILY [facility] Rx#: [id number] Meropenem 1 gm In Sodium 100 Chloride 0.9% 100 ml @ 200 mls/hr IVPB Q8HR [facility] Rx#:[id number] Mvi, Adult No.4 with Vit 384 K 10 ml Trace (Conc-1Ml/ Dose) 1 ml In [place] 3.3%/ Dex 9.8%/Lipid/Lytes 1, 540 ml @ 64 mls/hr IV . Q24H [facility] Rx#:[id number] Pressure Bag 33 30 30 Vancomycin 1,500 mg In 250 Sodium Chloride 0.9% 250 ml @ 125 mls/hr IVPB Q36H [facility] Rx#:[id number] Oral 180 Output: Drainage 580 695 450 Medial Chest Incision - 100 Woundvac Right Abdomen 480 695 450 Urine 5200 299 2677 Other: Voiding Method Indwelling Catheter Indwelling Catheter Indwelling Catheter # Bowel Movements 1 ABP, PAP, CO, CI - Last Documented Arterial Blood Pressure 144/65 Pulmonary Artery Pressure 38/33 Cardiac Output 5.8 Cardiac Index 2.9 - Exam PHYSICAL EXAM: VITAL SIGNS: As above GENERAL: Sitting up in bed, on mechanical ventilation, alert and oriented HEENT: Conjunctivae normal. eyes normal. Dobbhoff connected to suction- bilious drainage. NECK: No JVD. Tracheostomy tube present CARDIOVASCULAR: S1, S2 muffled , no gallops, no murmurs RESPIRATION: Breath sounds diminished in the bases,coarse. Sternal wound dressing present. ABDOMEN: Distended, tympanic, right-sided abdominal dressing clean dry and intact with HENRI- serous drainage, hypoactive bowel sounds Extremities: Positive edema, anasarca-weeping PSYCHIATRY:/NERVOUS SYSTEM: Unable to assess as patient on mechanical ventilation, Skin: Midsternal dressing clean dry and intact, right medial buttock & right buttock optifoam dressing intact, right wrist area ulcerations-dressing clean dry and intact.posterior scalp with pressure ulceration resting on a offload- cushion - Labs CBC & Chem 7: 12/30/17 02:40 12/30/17 02:40 Labs: Abnormal Lab Results - Last 24 Hours (Table) 12/29/17 12/29/17 12/29/17 Range/Units 04:20 04:20 05:10 RBC 2.81 L (3.80-5.40) m/uL Hgb 7.2 L (11.4-16.0) gm/dL Hct 24.8 L (34.0-46.0) % MCHC 28.9 L (31.0-37.0) g/dL RDW 19.6 H (11.5-15.5) % ABG pCO2 49 H (35-45) mmHg ABG HCO3 31 H (21-25) mmol/L ABG Total CO2 33 H (19-24) mmol/L ABG O2 Saturation 98.6 H (94-97) % Sodium 148 H (137-145) mmol/L BUN 45 H (7-17) mg/dL Glucose 73 L (74-99) mg/dL POC Glucose (mg/dL) (75-99) mg/dL AST 39 H (14-36) U/L Total Protein 5.6 L (6.3-8.2) g/dL Albumin 2.6 L (3.5-5.0) g/dL HDL Cholesterol (40-60) mg/dL 12/29/17 12/29/17 12/29/17 Range/Units 06:21 06:55 11:45 RBC (3.80-5.40) m/uL Hgb (11.4-16.0) gm/dL Hct (34.0-46.0) % MCHC (31.0-37.0) g/dL RDW (11.5-15.5) % ABG pCO2 (35-45) mmHg ABG HCO3 (21-25) mmol/L ABG Total CO2 (19-24) mmol/L ABG O2 Saturation (94-97) % Sodium (137-145) mmol/L BUN (7-17) mg/dL Glucose (74-99) mg/dL POC Glucose (mg/dL) 72 L 109 H (75-99) mg/dL AST (14-36) U/L Total Protein (6.3-8.2) g/dL Albumin (3.5-5.0) g/dL HDL Cholesterol 20 L (40-60) mg/dL 12/29/17 Range/Units 12:33 RBC (3.80-5.40) m/uL Hgb (11.4-16.0) gm/dL Hct (34.0-46.0) % MCHC (31.0-37.0) g/dL RDW (11.5-15.5) % ABG pCO2 (35-45) mmHg ABG HCO3 (21-25) mmol/L ABG Total CO2 (19-24) mmol/L ABG O2 Saturation (94-97) % Sodium (137-145) mmol/L BUN (7-17) mg/dL Glucose (74-99) mg/dL POC Glucose (mg/dL) 101 H (75-99) mg/dL AST (14-36) U/L Total Protein (6.3-8.2) g/dL Albumin (3.5-5.0) g/dL HDL Cholesterol (40-60) mg/dL Assessment and Plan Assessment: 1. Status post CABG with mitral valve replacement 2. Acute blood loss anemia with massive blood transfusions postoperatively, in a patient with history of GI bleed 3. Hypertension 4. Left subclavian stenosis 5. Proximal atrial fibrillation/flutter status post cardioversion with recurrence of atrial fibrillation 6. Acute Hypoxic respiratory failure, Re intubated x2. Status post tracheostomy 7. Obesity, BMI 41.6 8. S/P PICC line placement 9. 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 Acute UTI Serratia marcescens, E. coli 11. Bilateral pleural effusions, improved with diuretics. Possible aspiration pneumonia, possible fluid overload. 12. Sternal wound debridement, culture growing Serratia marcescens, status post wound VAC. Status post sternal flap grafting. 13. Pressure ulceration of back and buttocks, stage III 14. Diarrhea, ruling out C. difficile colitis. 15. Status post bronchoscopy with left lower lobe mucous plug discovered 16. ileus, Dobbhoff feedings on hold,TPN initiated. Plan: Continue on current medication regime , amiodarone, metoprolol ,reglan, lactulose,monitoring and symptomatic treatment. .Maintain IV antibiotics as per infectious disease, nebulized bronchodilators, steroids. family at bedside , support given. Prognosis guarded given multiple complex medical issues. The impression and plan of care has been dictated as directed. : I performed a history and examination of this patient, discussed the same with the dictator. I agree with the dictator's note ,documented as a scribe. Any additional findings or plans will be noted.
[2017-12-30] MEDS: ESCITALOPRAM 10 MG TAB PO SCH (20:21)
[2017-12-30] MEDS: SENNOSIDES-DOCUSATE SODIUM 1 EACH TAB PO SCH (20:21)
--- NOTE | 2017-12-30 20:31 | P.PN ---
Subjective Progress Note Date: 12/29/17 Progress note being dictated for Dr. Lugo Interval history: This is 67-year-old female status post CABG, mitral valve replacement, status post multiple blood products transfusions. Remains vent dependent on 40% FiO2/+5 of PEEP. Chest x-ray reporting fluid overload, improvement in volume status, aeration.Maintained on norepinephrine, Primacor, dopamine and insulin drip. Cardiac index 2.7. Telemetry atrial flutter/sinus tach. Tube feeding initiated via OG tube. Hemoglobin 7.3, Platelets decreased to 64 today, maintained on low-dose aspirin. Review systems unable to obtain as patient sedated and on mechanical ventilation. Active Medications Albuterol/Ipratropium (Duoneb 0.5 Mg-3 Mg/3 Ml Soln) 3 ml INHALATION RT-Q4H [facility] Last Admin: 11/29/17 15:17 Dose: 3 ml Albuterol/Ipratropium (Duoneb 0.5 Mg-3 Mg/3 Ml Soln) 3 ml INHALATION RT-Q2H PRN PRN Reason: Shortness Of Breath Or Wheezing Amiodarone HCl (Cordarone) 200 mg PO BID [facility] Aspirin (Aspirin) 81 mg PO DAILY [facility] Last Admin: 11/29/17 08:54 Dose: 81 mg Atorvastatin Calcium (Lipitor) 40 mg PO DAILY [facility] Last Admin: 11/29/17 08:54 Dose: 40 mg Benzocaine/Menthol (Cepacol Lozenge) 1 each MUCOUS MEM Q2H PRN PRN Reason: Sore Throat Bisacodyl (Dulcolax) 10 mg RECTAL DAILY PRN PRN Reason: Constipation Chlorhexidine Gluconate (Peridex) 15 ml MUCOUS MEM BID [facility] Last Admin: 11/29/17 08:48 Dose: 15 ml Furosemide (Lasix) 40 mg IV ONCE ONE Stop: 11/29/17 20:01 Propofol 1,000 mg/ IV Solution 100 mls @ 0 mls/hr IV .Q0M [facility]; Titrate PRN Reason: Protocol Last Admin: 11/29/17 17:54 Dose: 26.13 mcg/kg/min, 17.2 mls/hr Norepinephrine Bitartrate (Levophed-0.9% Nacl 16 Mg/250ml Pmx) 16 mg in 250 mls @ 0 mls/hr IV .Q0M [facility]; Titrate PRN Reason: Protocol Last Admin: 11/29/17 17:54 Dose: 2 mcg/min, 1.875 mls/hr Sodium Chloride (Saline 0.45%) 1,000 mls @ 30 mls/hr IV .Q24H [facility] Last Admin: 11/29/17 10:28 Dose: Not Given Milrinone Lactate/Dextrose 20 (mg/ IV Solution) 100 mls @ 6.58 mls/hr IV .[id number] [facility] PRN Reason: 0.2 MCG/KG/MIN Last Admin: 11/29/17 15:38 Dose: 0.2 mcg/kg/min, 6.58 mls/hr Insulin Aspart (Novolog) 0 unit SQ Q6HR [facility] PRN Reason: Protocol Last Admin: 11/29/17 12:36 Dose: Not Given Magnesium Hydroxide (Milk Of Magnesia) 2,400 mg PO BID PRN PRN Reason: Constipation Metoprolol Tartrate (Lopressor) 12.5 mg PO BID [facility] Last Admin: 11/29/17 08:55 Dose: 12.5 mg Miscellaneous Information (Magnesium Per Protocol) 1 each MISCELLANE DAILY PRN ; Protocol PRN Reason: Per Protocol Miscellaneous Information (Phosphorus Per Protocol) 1 each MISCELLANE DAILY PRN ; Protocol PRN Reason: Per Protocol Miscellaneous Information (Potassium Per Protocol) 1 each MISCELLANE DAILY PRN ; Protocol PRN Reason: Per Protocol Miscellaneous Information (Potassium Per Protocol) 1 each MISCELLANE DAILY PRN ; Protocol PRN Reason: Per Protocol Morphine Sulfate (Morphine Oral Dana 2mg/Ml) 6 mg PO Q2H PRN PRN Reason: Severe Pain Ondansetron HCl (Zofran) 4 mg IVP Q6HR PRN PRN Reason: Nausea And Vomiting Pantoprazole Sodium (Protonix) 40 mg IVP DAILY [facility] Last Admin: 11/29/17 08:55 Dose: 40 mg Senna/Docusate Sodium (Senokot-S) 2 each PO HS [facility] Last Admin: 11/28/17 20:41 Dose: 2 each Sodium Chloride (Saline Flush) 10 ml IV BID [facility] Last Admin: 11/29/17 08:56 Dose: 10 ml 11/30/2017 Chest x-ray reporting increased congestion, received additional Lasix. extubated this morning, currently maintained on BiPAP. Norepinephrine weaned off this morning. Maintained on Primacor, cardiac index 2.6. Received 1 dose of Lasix IV push. Renal function improving. Hemoglobin 7, platelets increased to 74. Atrial flutter per telemetry. Review systems unable to obtain as patient BiPAP dependent. Active Medications Generic Name Dose Route Start Last Admin Trade Name Freq PRN Reason Stop Dose Admin Albuterol/Ipratropium 3 ml 11/25/17 20:00 11/30/17 15:23 Duoneb 0.5 Mg-3 Mg/3 Ml Soln INHALATION 3 ml RT-Q4H [facility] Administration Albuterol/Ipratropium 3 ml 11/26/17 17:53 Duoneb 0.5 Mg-3 Mg/3 Ml Soln INHALATION RT-Q2H PRN Shortness Of Breath Or Wheezing Amiodarone HCl 200 mg 11/29/17 21:00 11/30/17 08:14 Cordarone PO 200 mg BID [facility] Administration Aspirin 81 mg 11/26/17 10:15 11/30/17 08:15 Aspirin PO 81 mg DAILY [facility] Administration Atorvastatin Calcium 40 mg 11/26/17 09:00 11/30/17 08:14 Lipitor PO 40 mg DAILY [facility] Administration Benzocaine/Menthol 1 each 11/25/17 19:03 Cepacol Lozenge MUCOUS MEM Q2H PRN Sore Throat Bisacodyl 10 mg 11/26/17 17:52 Dulcolax RECTAL DAILY PRN Constipation Fondaparinux 2.5 mg 11/30/17 11:30 11/30/17 13:23 Arixtra SQ 2.5 mg DAILY [facility] Administration Norepinephrine Bitartrate 16 mg in 250 mls @ 0 mls/hr 11/26/17 04:15 11:58 Levophed-0.9% Nacl 16 Mg/250ml Pmx IV 0 mcg/min .Q0M [facility] 0 mls/hr Protocol Titration Titrate Sodium Chloride 1,000 mls @ 10 mls/hr 11/26/17 10:15 11/30/17 12:51 Saline 0.45% IV Not Given .Q24H [facility] Milrinone Lactate/Dextrose 20 100 mls @ 6.58 mls/hr 11/29/17 15:00 11/30/17 08:16 mg/ IV Solution IV 0.2 mcg/kg/min .[id number] [facility] 6.58 mls/hr 0.2 MCG/KG/MIN Infusion Insulin Aspart 0 unit 11/29/17 12:00 11/30/17 12:50 Novolog SQ Not Given Q6HR [facility] Protocol Magnesium Hydroxide 2,400 mg 11/26/17 17:53 Milk Of Magnesia PO BID PRN Constipation Metoprolol Tartrate 12.5 mg 11/26/17 09:00 11/30/17 08:15 Lopressor PO 12.5 mg BID [facility] Administration Miscellaneous Information 1 each 11/25/17 19:03 Magnesium Per Protocol MISCELLANE DAILY PRN Per Protocol Protocol Miscellaneous Information 1 each 11/25/17 19:03 Phosphorus Per Protocol MISCELLANE DAILY PRN Per Protocol Protocol Miscellaneous Information 1 each 11/25/17 19:03 Potassium Per Protocol MISCELLANE DAILY PRN Per Protocol Protocol Miscellaneous Information 1 each 11/29/17 12:01 Potassium Per Protocol MISCELLANE DAILY PRN Per Protocol Protocol Morphine Sulfate 6 mg 11/29/17 13:31 Morphine Oral Dana 2mg/Ml PO Q2H PRN Severe Pain Ondansetron HCl 4 mg 11/25/17 19:03 Zofran IVP Q6HR PRN Nausea And Vomiting Pantoprazole Sodium 40 mg 11/26/17 09:00 11/30/17 08:15 Protonix IVP 40 mg DAILY [facility] Administration Senna/Docusate Sodium 2 each 11/26/17 21:00 11/29/17 20:40 Senokot-S PO 2 each HS [facility] Administration Sodium Chloride 10 ml 11/25/17 21:00 11/30/17 08:15 Saline Flush IV 10 ml BID [facility] Administration 12/01/2017 Breathing improving, weaned off of BiPAP and down to 6 L high flow. Wheezing resolved. Chest x-ray reports improvement. Staff reports patient appeared to be choking on pills last night, speech therapy consulted. Receiving one unit of packed RBCs for hemoglobin of 6.7. Mediastinal chest tubes discontinued, left pleural chest tube remains. Maintained on Primacor. Telemetry atrial flutter. Review of systems: CONSTITUTIONAL: No fever, no malaise HEENT: No recent visual problems or hearing problems. Denied any sore throat. CARDIOVASCULAR: No chest pain, no palpitations, no syncope. PULMONARY: Improving shortness of breath, no cough, no hemoptysis. GASTROINTESTINAL: No diarrhea, no nausea, no vomiting, no abdominal pain. Normoactive bowel sounds. NEUROLOGICAL: No headaches, diffuse weakness, no numbness. HEMATOLOGICAL: Denies any bleeding or petechiae. GENITOURINARY: Denies any burning micturition, frequency, or urgency. ENDOCRINE: Denies any polyuria or polydipsia. PSYCHIATRIC: No anxiety, no depression Active Medications Hydrocodone Bitart/Acetaminophen ([place] 5-325) 1 each PO Q4HR PRN PRN Reason: MILD TO MODERATE Pain Last Admin: 12/01/17 22:44 Dose: 1 each Hydrocodone Bitart/Acetaminophen ([place] 5-325) 2 each PO Q4HR PRN PRN Reason: MODERATE TO SEVERE Pain Albuterol/Ipratropium (Duoneb 0.5 Mg-3 Mg/3 Ml Soln) 3 ml INHALATION RT-Q4H [facility] Last Admin: 12/02/17 15:06 Dose: 3 ml Albuterol/Ipratropium (Duoneb 0.5 Mg-3 Mg/3 Ml Soln) 3 ml INHALATION RT-Q2H PRN PRN Reason: Shortness Of Breath Or Wheezing Last Admin: 12/01/17 18:09 Dose: 3 ml Amiodarone HCl (Cordarone) 200 mg PO BID [facility] Last Admin: 12/02/17 08:10 Dose: 200 mg Aspirin (Aspirin) 81 mg PO DAILY [facility] Last Admin: 12/02/17 08:10 Dose: 81 mg Atorvastatin Calcium (Lipitor) 40 mg PO DAILY [facility] Last Admin: 12/02/17 08:10 Dose: 40 mg Benzocaine/Menthol (Cepacol Lozenge) 1 each MUCOUS MEM Q2H PRN PRN Reason: Sore Throat Bisacodyl (Dulcolax) 10 mg RECTAL DAILY PRN PRN Reason: Constipation Budesonide (Pulmicort) 1 mg INHALATION RT-BID [facility] Last Admin: 12/02/17 07:19 Dose: 1 mg Fondaparinux (Arixtra) 2.5 mg SQ DAILY [facility] Last Admin: 12/02/17 08:10 Dose: 2.5 mg Formoterol Fumarate (Perforomist) 20 mcg INHALATION RT-BID [facility] Last Admin: 12/02/17 07:36 Dose: 20 mcg Norepinephrine Bitartrate (Levophed-0.9% Nacl 16 Mg/250ml Pmx) 16 mg in 250 mls @ 0 mls/hr IV .Q0M [facility]; Titrate PRN Reason: Protocol Last Titration: 11/30/17 11:58 Dose: 0 mcg/min, 0 mls/hr Sodium Chloride (Saline 0.45%) 1,000 mls @ 10 mls/hr IV .Q24H [facility] Last Admin: 12/01/17 14:04 Dose: 10 mls/hr Milrinone Lactate/Dextrose 20 (mg/ IV Solution) 100 mls @ 6.58 mls/hr IV .[id number] [facility] PRN Reason: 0.2 MCG/KG/MIN Last Admin: 12/02/17 08:57 Dose: 0.2 mcg/kg/min, 6.58 mls/hr Insulin Aspart (Novolog) 0 unit SQ Q6HR [facility] PRN Reason: Protocol Last Admin: 12/02/17 12:53 Dose: Not Given Magnesium Hydroxide (Milk Of Magnesia) 2,400 mg PO BID PRN PRN Reason: Constipation Methylprednisolone Sodium Succinate (Solu-Medrol) 30 mg IV Q8HR [facility] Last Admin: 12/02/17 08:10 Dose: 30 mg Metoprolol Tartrate (Lopressor) 25 mg PO BID [facility] Last Admin: 12/02/17 08:59 Dose: 25 mg Miscellaneous Information (Magnesium Per Protocol) 1 each MISCELLANE DAILY PRN ; Protocol PRN Reason: Per Protocol Miscellaneous Information (Phosphorus Per Protocol) 1 each MISCELLANE DAILY PRN ; Protocol PRN Reason: Per Protocol Miscellaneous Information (Potassium Per Protocol) 1 each MISCELLANE DAILY PRN ; Protocol PRN Reason: Per Protocol Miscellaneous Information (Potassium Per Protocol) 1 each MISCELLANE DAILY PRN ; Protocol PRN Reason: Per Protocol Ondansetron HCl (Zofran) 4 mg IVP Q6HR PRN PRN Reason: Nausea And Vomiting Pantoprazole Sodium (Protonix) 40 mg IVP DAILY [facility] Last Admin: 12/02/17 08:10 Dose: 40 mg Senna/Docusate Sodium (Senokot-S) 2 each PO HS [facility] Last Admin: 12/01/17 21:55 Dose: 2 each Sodium Chloride (Saline Flush) 10 ml IV BID [facility] Last Admin: 12/02/17 12:51 Dose: 10 ml 12/02/17 Much more alert today. Oxygen weaned further down to 5 L nasal cannula, maintaining O2 sats in the high 90s. Pleural chest tube discontinued. Chest x- ray reporting probable right lower lobe atelectasis/effusion. Underwent modified barium swallow, with recommendations of regular diet, thin liquids, chin tuck, no straw, small bites/sepsis/sips; no impairment with exception of mild transient penetration with thin liquids which patient independently cleared. Yesterday receive 1 unit of packed RBCs with current hemoglobin 8. Weaning of Primacor in progress. 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 Review of systems: CONSTITUTIONAL: No fever, no malaise, no fatigue. HEENT: No recent visual problems or hearing problems. Denied any sore throat. CARDIOVASCULAR: No chest pain, no palpitations, no syncope. PULMONARY: Minimal shortness of breath, no cough, no hemoptysis. GASTROINTESTINAL: No diarrhea, no nausea, no vomiting, no abdominal pain. Normoactive bowel sounds. NEUROLOGICAL: No headaches, no weakness, no numbness. HEMATOLOGICAL: Denies any bleeding or petechiae. GENITOURINARY: Denies any burning micturition, frequency, or urgency. MUSCULOSKELETAL/RHEUMATOLOGICAL: Denies any joint pain, swelling, or any muscle pain. ENDOCRINE: Denies any polyuria or polydipsia. PSYCHIATRIC: No anxiety, no depression The rest of the 14 point review of systems is negative Active Medications Generic Name Dose Route Start Last Admin Trade Name Freq PRN Reason Stop Dose Admin Hydrocodone Bitart/Acetaminophen 1 each 12/01/17 12:20 12/01/17 22:44 [place] 5-325 PO 1 each Q4HR PRN Administration MILD TO MODERATE Pain Hydrocodone Bitart/Acetaminophen 2 each 12/01/17 12:20 [place] 5-325 PO Q4HR PRN MODERATE TO SEVERE Pain Albuterol/Ipratropium 3 ml 11/25/17 20:00 12/02/17 15:06 Duoneb 0.5 Mg-3 Mg/3 Ml Soln INHALATION 3 ml RT-Q4H [facility] Administration Albuterol/Ipratropium 3 ml 11/26/17 17:53 12/01/17 18:09 Duoneb 0.5 Mg-3 Mg/3 Ml Soln INHALATION 3 ml RT-Q2H PRN Administration Shortness Of Breath Or Wheezing Amiodarone HCl 200 mg 11/29/17 21:00 12/02/17 08:10 Cordarone PO 200 mg BID [facility] Administration Aspirin 81 mg 11/26/17 10:15 12/02/17 08:10 Aspirin PO 81 mg DAILY [facility] Administration Atorvastatin Calcium 40 mg 11/26/17 09:00 12/02/17 08:10 Lipitor PO 40 mg DAILY [facility] Administration Benzocaine/Menthol 1 each 11/25/17 19:03 Cepacol Lozenge MUCOUS MEM Q2H PRN Sore Throat Bisacodyl 10 mg 11/26/17 17:52 Dulcolax RECTAL DAILY PRN Constipation Budesonide 1 mg 12/01/17 20:00 12/02/17 07:19 Pulmicort INHALATION 1 mg RT-BID [facility] Administration Fondaparinux 2.5 mg 11/30/17 11:30 12/02/17 08:10 Arixtra SQ 2.5 mg DAILY [facility] Administration Formoterol Fumarate 20 mcg 12/01/17 20:00 12/02/17 07:36 Perforomist INHALATION 20 mcg RT-BID [facility] Administration Norepinephrine Bitartrate 16 mg in 250 mls @ 0 mls/hr 11/26/17 04:15 11:58 Levophed-0.9% Nacl 16 Mg/250ml Pmx IV 0 mcg/min .Q0M [facility] 0 mls/hr Protocol Titration Titrate Sodium Chloride 1,000 mls @ 10 mls/hr 11/26/17 10:15 12/02/17 15:41 Saline 0.45% IV Not Given .Q24H [facility] Milrinone Lactate/Dextrose 20 100 mls @ 6.58 mls/hr 11/29/17 15:00 12/02/17 08:57 mg/ IV Solution IV 0.2 mcg/kg/min .[id number] [facility] 6.58 mls/hr 0.2 MCG/KG/MIN Administration Insulin Aspart 0 unit 11/29/17 12:00 12/02/17 12:53 Novolog SQ Not Given Q6HR [facility] Protocol Magnesium Hydroxide 2,400 mg 11/26/17 17:53 Milk Of Magnesia PO BID PRN Constipation Methylprednisolone Sodium Succinate 30 mg 12/01/17 16:00 12/02/17 08:10 Solu-Medrol IV 30 mg Q8HR [facility] Administration Metoprolol Tartrate 25 mg 12/02/17 09:00 12/02/17 08:59 Lopressor PO 25 mg BID [facility] Administration Miscellaneous Information 1 each 11/25/17 19:03 Magnesium Per Protocol MISCELLANE DAILY PRN Per Protocol Protocol Miscellaneous Information 1 each 11/25/17 19:03 Phosphorus Per Protocol MISCELLANE DAILY PRN Per Protocol Protocol Miscellaneous Information 1 each 11/25/17 19:03 Potassium Per Protocol MISCELLANE DAILY PRN Per Protocol Protocol Miscellaneous Information 1 each 11/29/17 12:01 Potassium Per Protocol MISCELLANE DAILY PRN Per Protocol Protocol Ondansetron HCl 4 mg 11/25/17 19:03 Zofran IVP Q6HR PRN Nausea And Vomiting Pantoprazole Sodium 40 mg 11/26/17 09:00 12/02/17 08:10 Protonix IVP 40 mg DAILY [facility] Administration Senna/Docusate Sodium 2 each 11/26/17 21:00 12/01/17 21:55 Senokot-S PO 2 each HS [facility] Administration Sodium Chloride 10 ml 11/25/17 21:00 12/02/17 12:51 Saline Flush IV 10 ml BID [facility] Administration 12/03/17 maintained on nebulized bronchodilators, steroids,patient tachypneic, requiring BiPap throughout today off and on. Chest x-ray suggestive of fluid overload. Received additional Lasix. Maintained on oral amiodarone, remains in a-flutter. Overdrive atrial pacing attempted unsuccessfully. Digoxin 2 ordered. Pacer wires discontinued today. Stool at bedside with PT OT, remains extremely weak. Primacor weaned off yesterday. 2017 currently in atrial fibrillation with heart rates up into the 150s, scheduled for cardioversion tomorrow. INR 2.2. Patient currently wearing BiPAP ,has required on and off all day. Chest ultrasound reporting bilateral pleural effusions, larger on the right. Thoracentesis on hold, awaiting cardioversion.Chest x-ray reporting prominent interstitium and central vascularity, increased bibasilar density. Attempting diuresing with Lasix and Zaroxolyn. Review systems unable to obtain as patient currently on BiPAP. Active Medications Hydrocodone Bitart/Acetaminophen ([place] 5-325) 1 each PO Q4HR PRN PRN Reason: MILD TO MODERATE Pain Last Admin: 12/07/17 10:48 Dose: 1 each Hydrocodone Bitart/Acetaminophen ([place] 5-325) 2 each PO Q4HR PRN PRN Reason: MODERATE TO SEVERE Pain Last Admin: 12/07/17 16:39 Dose: 2 each Albuterol/Ipratropium (Duoneb 0.5 Mg-3 Mg/3 Ml Soln) 3 ml INHALATION RT-Q2H PRN PRN Reason: Shortness Of Breath Or Wheezing Last Admin: 12/01/17 18:09 Dose: 3 ml Albuterol/Ipratropium (Duoneb 0.5 Mg-3 Mg/3 Ml Soln) 3 ml INHALATION RT-QID [facility] Last Admin: 12/07/17 16:43 Dose: 3 ml Amiodarone HCl (Cordarone) 200 mg PO BID [facility] Aspirin (Aspirin) 81 mg PO DAILY [facility] Last Admin: 12/07/17 08:53 Dose: 81 mg Atorvastatin Calcium (Lipitor) 40 mg PO DAILY [facility] Last Admin: 12/07/17 08:53 Dose: 40 mg Benzocaine/Menthol (Cepacol Lozenge) 1 each MUCOUS MEM Q2H PRN PRN Reason: Sore Throat Bisacodyl (Dulcolax) 10 mg RECTAL DAILY PRN PRN Reason: Constipation Budesonide (Pulmicort) 1 mg INHALATION RT-BID [facility] Last Admin: 12/07/17 08:36 Dose: 1 mg Escitalopram Oxalate (Lexapro) 10 mg PO HS [facility] Furosemide (Lasix) 40 mg IV Q12HR [facility] Last Admin: 12/07/17 08:33 Dose: 40 mg Piperacillin/Tazobactam/ (Dextrose 3.375 gm/ IV Solution) 50 mls @ 12.5 mls/hr IVPB Q8HR [facility] Last Admin: 12/07/17 16:39 Dose: 12.5 mls/hr Sodium Chloride (Saline 0.9%) 1,000 mls @ 20 mls/hr IV .Q24H [facility] Last Admin: 12/07/17 13:00 Dose: 20 mls/hr Lactated Ringer's (Lactated Ringers) 1,000 mls @ 20 mls/hr IV .Q24H [facility] Last Admin: 12/06/17 20:45 Dose: 20 mls/hr Insulin Aspart (Novolog) 0 unit SQ ACHS [facility] PRN Reason: Protocol Last Admin: 12/07/17 13:01 Dose: 2 unit Magnesium Hydroxide (Milk Of Magnesia) 2,400 mg PO BID PRN PRN Reason: Constipation Methylprednisolone Sodium Succinate (Solu-Medrol) 30 mg IV Q8HR [facility] Last Admin: 12/07/17 16:39 Dose: 30 mg Metolazone (Zaroxolyn) 5 mg PO DAILY [facility] Last Admin: 12/07/17 08:53 Dose: 5 mg Metoprolol Tartrate (Lopressor) 50 mg PO BID [facility] Last Admin: 12/07/17 08:53 Dose: 50 mg Miscellaneous Information (Magnesium Per Protocol) 1 each MISCELLANE DAILY PRN ; Protocol PRN Reason: Per Protocol Miscellaneous Information (Phosphorus Per Protocol) 1 each MISCELLANE DAILY PRN ; Protocol PRN Reason: Per Protocol Miscellaneous Information (Potassium Per Protocol) 1 each MISCELLANE DAILY PRN ; Protocol PRN Reason: Per Protocol Ondansetron HCl (Zofran) 4 mg IVP Q6HR PRN PRN Reason: Nausea And Vomiting Pantoprazole Sodium (Protonix) 40 mg PO [id number] [facility] Last Admin: 12/07/17 08:53 Dose: 40 mg Senna/Docusate Sodium (Senokot-S) 2 each PO HS [facility] Last Admin: 12/06/17 20:29 Dose: 2 each Sodium Chloride (Saline Flush) 10 ml IV BID [facility] Last Admin: 12/07/17 10:48 Dose: 10 ml 12/07/2017 Underwent successful cardioversion this morning,360J X1, remains in sinus rhythm. Currently wearing BiPAP. Nonproductive cough. Diuresing well on Lasix and Zaroxolyn with 24-hour I&O reflecting a negative fluid balance. Chest x-ray reporting stable bilateral areas of infiltrate and pleural effusions , possible CHF, possible pneumonia. INR 3.8, afebrile, WBC 17. Maintained on Zosyn. Sternal wound drainage, cultures sent. 12/08/2017 Cardioverted yesterday, remains in sinus rhythm .continues requiring BiPAP for majority of morning. Echo reporting-limited study for assessment of pericardial effusion, small generalized pericardial effusion, low normal LV function, EF 50-55%. Chest CT reporting sternal dehiscence, moderate to large pericardial effusion, possible mass effect onto the left ventricle, no significant right atrial dilatation to clearly indicate tamponade, moderate left pleural effusion with adjacent complete left lower lobar and inferior lingular collapse, small right pleural effusion, right basilar subsegmental atelectasis. Chest x-ray noted. Blood sugars controlled. INR 4.8, received vitamin K this morning. Diuresing well on Lasix IV push, Zaroxolyn. 24-hour I& O reflecting a negative fluid balance, decreased weight. Midsternal incision open, draining large amount of serosanguineous drainage. Currently maintained on Zosyn. Wound cultures pending. Afebrile. Review systems unable to obtain as patient currently on BiPAP. Active Medications Generic Name Dose Route Start Last Admin Trade Name Freq PRN Reason Stop Dose Admin Hydrocodone Bitart/Acetaminophen 1 each 12/01/17 12:20 12/08/17 06:26 [place] 5-325 PO 1 each Q4HR PRN Administration MILD TO MODERATE Pain Hydrocodone Bitart/Acetaminophen 2 each 12/01/17 12:20 12/08/17 18:41 [place] 5-325 PO 2 each Q4HR PRN Administration MODERATE TO SEVERE Pain Acetazolamide Sodium 250 mg 12/08/17 09:15 12/08/17 11:16 Diamox IV 12/08/17 21:01 250 mg Q12HR [facility] Administration Albuterol/Ipratropium 3 ml 11/26/17 17:53 12/08/17 05:16 Duoneb 0.5 Mg-3 Mg/3 Ml Soln INHALATION 3 ml RT-Q2H PRN Administration Shortness Of Breath Or Wheezing Albuterol/Ipratropium 3 ml 12/03/17 08:00 12/08/17 15:38 Duoneb 0.5 Mg-3 Mg/3 Ml Soln INHALATION 3 ml RT-QID [facility] Administration Amiodarone HCl 200 mg 12/08/17 09:00 12/08/17 08:24 Cordarone PO 200 mg BID [facility] Administration Aspirin 81 mg 11/26/17 10:15 12/08/17 08:24 Aspirin PO 81 mg DAILY [facility] Administration Atorvastatin Calcium 40 mg 11/26/17 09:00 12/08/17 08:25 Lipitor PO 40 mg DAILY [facility] Administration Benzocaine/Menthol 1 each 11/25/17 19:03 Cepacol Lozenge MUCOUS MEM Q2H PRN Sore Throat Bisacodyl 10 mg 11/26/17 17:52 Dulcolax RECTAL DAILY PRN Constipation Budesonide 1 mg 12/01/17 20:00 12/08/17 09:26 Pulmicort INHALATION 1 mg RT-BID [facility] Administration Escitalopram Oxalate 10 mg 12/07/17 21:00 12/07/17 20:10 Lexapro PO 10 mg HS [facility] Administration Piperacillin/Tazobactam/ 50 mls @ 12.5 mls/hr 12/04/17 16:00 12/08/17 16:11 Dextrose 3.375 gm/ IV Solution IVPB 12.5 mls/hr Q8HR [facility] Administration Sodium Chloride 1,000 mls @ 20 mls/hr 12/06/17 10:45 12/08/17 13:47 Saline 0.9% IV Not Given .Q24H [facility] Insulin Aspart 0 unit 12/02/17 21:00 12/08/17 17:46 Novolog SQ 1 unit ACHS [facility] Administration Protocol Magnesium Hydroxide 2,400 mg 11/26/17 17:53 Milk Of Magnesia PO BID PRN Constipation Metoprolol Tartrate 50 mg 12/06/17 21:00 12/08/17 08:24 Lopressor PO 50 mg BID [facility] Administration Miscellaneous Information 1 each 11/25/17 19:03 Magnesium Per Protocol MISCELLANE DAILY PRN Per Protocol Protocol Miscellaneous Information 1 each 11/25/17 19:03 Phosphorus Per Protocol MISCELLANE DAILY PRN Per Protocol Protocol Miscellaneous Information 1 each 11/25/17 19:03 Potassium Per Protocol MISCELLANE DAILY PRN Per Protocol Protocol Ondansetron HCl 4 mg 11/25/17 19:03 Zofran IVP Q6HR PRN Nausea And Vomiting Pantoprazole Sodium 40 mg 12/05/17 07:30 12/08/17 08:25 Protonix PO 40 mg [id number] CARLEE Administration Senna/Docusate Sodium 2 each 11/26/17 21:00 12/07/17 20:16 Senokot-S PO 2 each HS CARLEE Administration Sodium Chloride 10 ml 11/25/17 21:00 12/08/17 11:16 Saline Flush IV 10 ml BID CARELE Administration 12/09/17 Remains in sinus rhythm. mostly BiPAP dependent. Incentive spirometer up to 700 -750. Chest x-ray reporting improving moderate pleural effusion, cardiomegaly. Sternal wound culture positive for gram-negative bacilli. Maintained on Zosyn. Diet intake fair. Blood sugars controlled. Review systems unable to be performed as patient on BiPAP Active Medications Hydrocodone Bitart/Acetaminophen ([place] 5-325) 1 each PO Q4HR PRN PRN Reason: MILD TO MODERATE Pain Last Admin: 12/09/17 10:03 Dose: 1 each Hydrocodone Bitart/Acetaminophen ([place] 5-325) 2 each PO Q4HR PRN PRN Reason: MODERATE TO SEVERE Pain Last Admin: 12/09/17 14:51 Dose: 2 each Albuterol/Ipratropium (Duoneb 0.5 Mg-3 Mg/3 Ml Soln) 3 ml INHALATION RT-Q2H PRN PRN Reason: Shortness Of Breath Or Wheezing Last Admin: 12/08/17 05:16 Dose: 3 ml Albuterol/Ipratropium (Duoneb 0.5 Mg-3 Mg/3 Ml Soln) 3 ml INHALATION RT-QID [facility] Last Admin: 12/09/17 15:42 Dose: 3 ml Amiodarone HCl (Cordarone) 200 mg PO BID [facility] Last Admin: 12/09/17 08:12 Dose: 200 mg Aspirin (Aspirin) 81 mg PO DAILY [facility] Last Admin: 12/09/17 08:13 Dose: 81 mg Atorvastatin Calcium (Lipitor) 40 mg PO DAILY [facility] Last Admin: 12/09/17 08:13 Dose: 40 mg Benzocaine/Menthol (Cepacol Lozenge) 1 each MUCOUS MEM Q2H PRN PRN Reason: Sore Throat Bisacodyl (Dulcolax) 10 mg RECTAL DAILY PRN PRN Reason: Constipation Budesonide (Pulmicort) 1 mg INHALATION RT-BID [facility] Last Admin: 12/09/17 07:45 Dose: 1 mg Escitalopram Oxalate (Lexapro) 10 mg PO HS [facility] Last Admin: 12/08/17 20:33 Dose: 10 mg Piperacillin/Tazobactam/ (Dextrose 3.375 gm/ IV Solution) 50 mls @ 12.5 mls/hr IVPB Q8HR [facility] Last Admin: 12/09/17 08:16 Dose: 12.5 mls/hr Sodium Chloride (Saline 0.9%) 1,000 mls @ 20 mls/hr IV .Q24H [facility] Last Admin: 12/09/17 08:17 Dose: 20 mls/hr Insulin Aspart (Novolog) 0 unit SQ ACHS [facility] PRN Reason: Protocol Last Admin: 12/09/17 12:23 Dose: Not Given Magnesium Hydroxide (Milk Of Magnesia) 2,400 mg PO BID PRN PRN Reason: Constipation Metoprolol Tartrate (Lopressor) 50 mg PO BID [facility] Last Admin: 12/09/17 08:13 Dose: 50 mg Miscellaneous Information (Magnesium Per Protocol) 1 each MISCELLANE DAILY PRN ; Protocol PRN Reason: Per Protocol Miscellaneous Information (Phosphorus Per Protocol) 1 each MISCELLANE DAILY PRN ; Protocol PRN Reason: Per Protocol Miscellaneous Information (Potassium Per Protocol) 1 each MISCELLANE DAILY PRN ; Protocol PRN Reason: Per Protocol Ondansetron HCl (Zofran) 4 mg IVP Q6HR PRN PRN Reason: Nausea And Vomiting Pantoprazole Sodium (Protonix) 40 mg PO AC-BRKFST [facility] Last Admin: 12/09/17 08:11 Dose: 40 mg Senna/Docusate Sodium (Senokot-S) 2 each PO HS [facility] Last Admin: 12/08/17 20:37 Dose: 2 each Sodium Chloride (Saline Flush) 10 ml IV BID [facility] Last Admin: 12/09/17 08:13 Dose: 10 ml 12/13/17 maintained on Merrem and vancomycin. BiPAP dependent. Worsening chest x-ray, chest CT reporting near complete collapse of left lung, enlarging moderate to large pericardial effusion. Echo pending. Multiple episodes of diarrhea. Atrial flutter with RVR, Review systems unable to be performed as patient on BiPAP Active Medications Generic Name Dose Route Start Last Admin Trade Name Freq PRN Reason Stop Dose Admin Hydrocodone Bitart/Acetaminophen 1 each 12/01/17 12:20 12/13/17 08:08 [place] 5-325 PO 1 each Q4HR PRN Administration MILD TO MODERATE Pain Hydrocodone Bitart/Acetaminophen 2 each 12/01/17 12:20 12/13/17 15:08 [place] 5-325 PO 2 each Q4HR PRN Administration MODERATE TO SEVERE Pain Albuterol/Ipratropium 3 ml 11/26/17 17:53 12/08/17 05:16 Duoneb 0.5 Mg-3 Mg/3 Ml Soln INHALATION 3 ml RT-Q2H PRN Administration Shortness Of Breath Or Wheezing Albuterol/Ipratropium 3 ml 12/03/17 08:00 12/13/17 16:02 Duoneb 0.5 Mg-3 Mg/3 Ml Soln INHALATION Not Given RT-QID [facility] Amiodarone HCl 200 mg 12/11/17 20:00 12/13/17 09:12 Cordarone PO 200 mg BID@0800,2000 [facility] Administration Aspirin 81 mg 11/26/17 10:15 12/13/17 09:13 Aspirin PO 81 mg DAILY [facility] Administration Atorvastatin Calcium 40 mg 11/26/17 09:00 12/13/17 09:13 Lipitor PO 40 mg DAILY [facility] Administration Benzocaine/Menthol 1 each 11/25/17 19:03 Cepacol Lozenge MUCOUS MEM Q2H PRN Sore Throat Bisacodyl 10 mg 11/26/17 17:52 12/12/17 17:45 Dulcolax RECTAL 10 mg DAILY PRN Administration Constipation Budesonide 1 mg 12/01/17 20:00 12/13/17 07:46 Pulmicort INHALATION 1 mg RT-BID [facility] Administration Escitalopram Oxalate 10 mg 12/07/17 21:00 12/12/17 20:16 Lexapro PO 10 mg HS [facility] Administration Heparin Sodium (Porcine) 5,000 unit 12/10/17 16:00 12/13/17 09:14 Heparin SQ 5,000 unit Q8HR [facility] Administration Sodium Chloride 1,000 mls @ 20 mls/hr 12/06/17 10:45 12/13/17 09:49 Saline 0.9% IV 20 mls/hr .Q24H [facility] Administration Meropenem 1 gm/ Sodium 100 mls @ 100 mls/hr 12/09/17 22:00 12/13/17 09:46 Chloride IVPB 100 mls/hr Q8HR [facility] Administration Vancomycin HCl 1,750 mg/ 250 mls @ 125 mls/hr 12/13/17 14:00 12/13/17 14:15 Sodium Chloride IVPB 125 mls/hr Q12HR@0000,1200 [facility] Administration Insulin Aspart 0 unit 12/02/17 21:00 12/13/17 12:34 Novolog SQ Not Given ACHS [facility] Protocol Lactobacillus Acidoph/Bulgaricus 1 each 12/13/17 16:00 Lactinex PO TID [facility] Magnesium Hydroxide 2,400 mg 11/26/17 17:53 Milk Of Magnesia PO BID PRN Constipation Metoprolol Tartrate 50 mg 12/11/17 22:00 12/13/17 09:13 Lopressor PO 50 mg BID@1000,2200 [facility] Administration Miscellaneous Information 1 each 11/25/17 19:03 Magnesium Per Protocol MISCELLANE DAILY PRN Per Protocol Protocol Miscellaneous Information 1 each 11/25/17 19:03 Phosphorus Per Protocol MISCELLANE DAILY PRN Per Protocol Protocol Miscellaneous Information 1 each 11/25/17 19:03 Potassium Per Protocol MISCELLANE DAILY PRN Per Protocol Protocol Ondansetron HCl 4 mg 11/25/17 19:03 Zofran IVP Q6HR PRN Nausea And Vomiting Pantoprazole Sodium 40 mg 12/05/17 07:30 12/13/17 09:13 Protonix PO 40 mg AC-BRKFST [facility] Administration Senna/Docusate Sodium 2 each 11/26/17 21:00 12/12/17 20:16 Senokot-S PO 2 each HS [facility] Administration Sodium Chloride 10 ml 11/25/17 21:00 12/13/17 09:49 Saline Flush IV 10 ml BID [facility] Administration 12/14/17 maintained on Merrem and vancomycin per infectious disease .remains BiPAP dependent. Chest x-ray reporting persistent significant left lung collapse with minimal improvement. Scheduled for bronchoscopy this afternoon. INR 2.1, receiving FFP. No diarrhea today. Telemetry atrial fibrillation/ flutter, heart rate 110s to 120s. 12/15/2017 developed worsened respiratory distress despite BiPAP, diuretics, antiarrhythmics, intubated last night. Received 2 more units of FFP this morning, underwent bronchoscopy this morning; mucous plug discovered in the left lower lobe. Pleural Cultures pending. Maintained on FiO2 45%/+5 of PEEP. Continues on IV antibiotics. Currently on 2-1/2 mics of Levophed and diprovan drips. Atrial tachycardia, heart rate in the 130s. Amiodarone discontinued as per cardiology. Developed increased bleeding from wound VAC with turning during bath-Anticoagulation placed on hold. Afebrile. 12/16/17 remains vent dependent, FiO2 40%/+5 of PEEP. Sedated on Diprovan. Requiring low-dose of Levophed. Marginal urine output, received albumin last night. Tachycardia resolved, sinus rhythm per telemetry. Wound VAC dressing changed today, serosanguineous drainage. Bronchoscopy yesterday, cultures pending. Blood sugars controlled. 12/17/2017 today weaning trials of pressure support in increments of 3 hours , resting at night, FiO2 40%/+5 of PEEP. Chest x-ray reporting improvement. Currently on Levophed. Tolerating tube feeds at goal with minimal to no residual. Maintained on IV antibiotics as per infectious disease. Telemetry sinus rhythm. 12/20/17 remains vent dependent FiO2 40%/PEEP of 5. Yesterday vent weaning during the day hours, tolerated well. Wound VAC changed yesterday. Scheduled for sternal flap repair tomorrow. Maintained on IV antibiotics. T-max 99.4. Last night returned into rapid atrial flutter, Currently sinus rhythm. 12/21/2017 remains vent dependent. Telemetry sinus rhythm. Tube feeds on hold. Scheduled for sternal flap repair today. 12/22/2017 underwent flap repair/grafting yesterday with plastic surgeon. Pain controlled. Extubated this morning, maintained on BiPAP. Telemetry sinus rhythm. Albumin remains at 2.2, receiving albumin. 12/23/17 .Patient respiratory arrested while Dobbhoff attempting to be placed, returned into atrial fibrillation with RVR. Reintubated, converted back into sinus rhythm. Midsternal dressing being changed at bedside by cardiothoracic surgery. Trach and PEG being discussed as per pulmonary. 12/24/17 scheduled for tracheostomy this morning. Chest x-ray reporting progressive CHF change with bilateral effusions possible underlying pneumonia, ET tube 1 cm above osvaldo. Telemetry sinus rhythm. Levophed currently on hold. 12/27/2017 Dobbhoff recently placed, developed nausea vomiting throughout the night. Abdomen distended, tympanic.Tube feeds placed on hold, flat plate of abdomen pending. PEG tube being discussed. Passing loose stools. Denies abdominal pain .Telemetry sinus rhythm. Maintained on FiO2 35%/+ of PEEP. Tolerated CPAP for 3 hours yesterday. Yesterday and today patient received Lasix IV push, diuresed well with 24-hour I&O reflecting a negative fluid balance. Chest x-ray reporting similar findings. T-max 99.2. 12/28/2017 maintained on IV antibiotics, significant wound drainage. Afebrile. remains vent dependent, FiO2 35%/+5 of PEEP. Chest x-ray stable. Yesterday abdominal x-ray reported possible underlying ileus, obstruction. Dobbhoff tube feeds placed on hold. Follow-up Abdominal x-ray this morning reporting markedly dilated small bowel loops ,severe postoperative ileus with partial obstruction. Abdomen distended. Weaning parameters suboptimal ,no weaning trials today as per pulmonary. Hemoglobin 7.anasarca, weeping .receiving Albumin , Lasix IV push 1. 12/29/17 maintained on vancomycin, Merrem. abdomen less distended today.small bowel movements 2 yesterday, on lactulose. TPN to be initiated today. Wound VAC /dressing changed this a.m.remains vent dependent and 35% FiO2/+5 of PEEP.pressure-support 2hr.hemoglobin 7.2.evaluated by general surgery with recommendations of no abdominal surgical intervention at this time. 12/30/2017.returned into atrial flutter last night, heart rates up to the 130s, currently heart rate in the 120s. Continues on Beta krunal,amiodarone and Cardizem.tolerating TPN.hemoglobin 7.1, potassium 3.1, being supplemented by ICU replacement protocol.afebrile.Dobhoff with tube feeds at low rate initiated. Objective - Vital Signs Vital signs: Vital Signs Temp 98.1 F 12/30/17 19:30 Pulse 138 H 12/30/17 19:30 Resp 21 12/30/17 19:40 BP 116/54 12/19/17 10:00 Pulse Ox 98 12/30/17 19:30 Intake & Output 12/30/17 12/30/17 12/31/17 06:59 18:59 06:59 Intake Total 831 2565 67 Output Total 1335 1560 70 Balance -504 1005 -3 Weight 99.8 kg 99.8 kg Intake: IV 831 1004 67 Dextrose 5%-0.45% NaCl 1, 30 000 ml @ 10 mls/hr IV . Q24H [facility] Rx#:[id number] Fluconazole in NaCl,Iso- 100 Osm 200 mg In Saline 1 100ml.bag @ 100 mls/hr IVPB DAILY [facility] Rx#: [id number] Meropenem 1 gm In Sodium 100 Chloride 0.9% 100 ml @ 200 mls/hr IVPB Q8HR [facility] Rx#:[id number] Mvi, Adult No.4 with Vit 768 768 64 K 10 ml Trace (Conc-1Ml/ Dose) 1 ml In Foote 3.3%/ Dex 9.8%/Lipid/Lytes 1, 540 ml @ 64 mls/hr IV . Q24H [facility] Rx#:[id number] Pressure Bag 33 36 3 Intake, IV Titration 1551 Amount Mvi, Adult No.4 with Vit 1551 K 10 ml Trace (Conc-1Ml/ Dose) 1 ml In Foote 3.3%/ Dex 9.8%/Lipid/Lytes 1, 540 ml @ 64 mls/hr IV . Q24H [facility] Rx#:[id number] Tube Feeding 10 Output: Drainage 1050 600 40 Right Abdomen 1050 600 40 Urine 285 960 30 Other: Voiding Method Indwelling Catheter Indwelling Catheter Indwelling Catheter ABP, PAP, CO, CI - Last Documented Arterial Blood Pressure 113/75 Pulmonary Artery Pressure 38/33 Cardiac Output 5.8 Cardiac Index 2.9 - Exam PHYSICAL EXAM: VITAL SIGNS: As above GENERAL: Sitting up in bed, on mechanical ventilation, alert and oriented,tired appearing, smiling HEENT: Conjunctivae normal. eyes normal. Dobbhoff present. NECK: No JVD. Tracheostomy tube present CARDIOVASCULAR: S1, S2 muffled , tachycardic,no gallops, no murmurs RESPIRATION: Breath sounds diminished in the bases,coarse. Sternal wound dressing present. ABDOMEN: Distended, tympanic, right-sided abdominal dressing clean dry and intact with HENRI- serous drainage, hypoactive bowel sounds Extremities: Positive edema, anasarca-weeping PSYCHIATRY:/NERVOUS SYSTEM: Unable to assess as patient on mechanical ventilation, Skin: Midsternal dressing clean dry and intact, right medial buttock & right buttock optifoam dressing intact, right wrist area ulcerations-dressing clean dry and intact.posterior scalp with pressure ulceration resting on a offload- cushion - Labs CBC & Chem 7: 12/30/17 02:40 12/30/17 02:40 Labs: Abnormal Lab Results - Last 24 Hours (Table) 12/29/17 12/30/17 12/30/17 Range/Units 23:43 02:40 02:40 RBC 2.73 L (3.80-5.40) m/uL Hgb 7.1 L (11.4-16.0) gm/dL Hct 24.1 L (34.0-46.0) % MCHC 29.6 L (31.0-37.0) g/dL RDW 19.3 H (11.5-15.5) % ABG pCO2 (35-45) mmHg ABG pO2 (83-108) mmHg ABG HCO3 (21-25) mmol/L ABG Total CO2 (19-24) mmol/L ABG O2 Saturation (94-97) % Sodium 148 H (137-145) mmol/L Potassium 3.1 L (3.5-5.1) mmol/L Carbon Dioxide 33 H (22-30) mmol/L BUN 40 H (7-17) mg/dL Glucose 124 H (74-99) mg/dL POC Glucose (mg/dL) 139 H (75-99) mg/dL Total Protein 5.7 L (6.3-8.2) g/dL Albumin 2.8 L (3.5-5.0) g/dL 12/30/17 12/30/17 12/30/17 Range/Units 05:43 06:57 11:37 RBC (3.80-5.40) m/uL Hgb (11.4-16.0) gm/dL Hct (34.0-46.0) % MCHC (31.0-37.0) g/dL RDW (11.5-15.5) % ABG pCO2 52 H (35-45) mmHg ABG pO2 126 H (83-108) mmHg ABG HCO3 33 H (21-25) mmol/L ABG Total CO2 35 H (19-24) mmol/L ABG O2 Saturation 99.7 H (94-97) % Sodium (137-145) mmol/L Potassium (3.5-5.1) mmol/L Carbon Dioxide (22-30) mmol/L BUN (7-17) mg/dL Glucose (74-99) mg/dL POC Glucose (mg/dL) 132 H 132 H (75-99) mg/dL Total Protein (6.3-8.2) g/dL Albumin (3.5-5.0) g/dL 12/30/17 Range/Units 17:56 RBC (3.80-5.40) m/uL Hgb (11.4-16.0) gm/dL Hct (34.0-46.0) % MCHC (31.0-37.0) g/dL RDW (11.5-15.5) % ABG pCO2 (35-45) mmHg ABG pO2 (83-108) mmHg ABG HCO3 (21-25) mmol/L ABG Total CO2 (19-24) mmol/L ABG O2 Saturation (94-97) % Sodium (137-145) mmol/L Potassium (3.5-5.1) mmol/L Carbon Dioxide (22-30) mmol/L BUN (7-17) mg/dL Glucose (74-99) mg/dL POC Glucose (mg/dL) 132 H (75-99) mg/dL Total Protein (6.3-8.2) g/dL Albumin (3.5-5.0) g/dL Assessment and Plan Assessment: 1. Status post CABG with mitral valve replacement 2. Acute blood loss anemia with massive blood transfusions postoperatively, in a patient with history of GI bleed 3. Hypertension 4. Left subclavian stenosis 5. Proximal atrial fibrillation/flutter status post cardioversion with recurrence of atrial fibrillation 6. Acute Hypoxic respiratory failure, Re intubated x2. Status post tracheostomy 7. Obesity, BMI 41.6 8. S/P PICC line placement 9. 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 Acute UTI Serratia marcescens, E. coli 11. Bilateral pleural effusions, improved with diuretics. Possible aspiration pneumonia, possible fluid overload. 12. Sternal wound debridement, culture growing Serratia marcescens, status post wound VAC. Status post sternal flap grafting. 13. Pressure ulceration of back and buttocks, stage III 14. Diarrhea, ruling out C. difficile colitis. 15. Status post bronchoscopy with left lower lobe mucous plug discovered 16. ileus, Dobbhoff feedings on hold,TPN initiated. Plan: Continue on current medication regime , amiodarone, metoprolol ,reglan, lactulose,monitoring and symptomatic treatment. strict aspiration precautions- Dobhoff trial feeding in progress.close monitoring of hemoglobin. Maintain IV antibiotics, nebulized bronchodilators, steroids. Prognosis guarded given multiple complex medical issues. The impression and plan of care has been dictated as directed. : I performed a history and examination of this patient, discussed the same with the dictator. I agree with the dictator's note ,documented as a scribe. Any additional findings or plans will be noted.
[2017-12-30] MEDS: VANCOMYCIN 1,500 MG in SODIUM CHLORIDE 0.9% 250 ML IVPB SCH (20:50)
--- NOTE | 2017-12-30 20:59 | P.PN ---
Subjective Progress Note Date: 12/30/17 Principal diagnosis: Sternal wound dehiscence Pleasant 67-year-old female who has an extensive past medical history who is now 14 days postoperative from her open heart procedure it which point in time a mitral valve placement occurred, reverse saphenous vein coronary artery bypass grafting 1 to obtuse marginal, Maze procedure and ligation of the left atrial appendage all occurred interoperatively left ventricular wall tear occurred and was repaired. The patient has a known history of multiple medical troubles before her surgery that included her obesity, COPD and marked deconditioning. Patient has had difficulties recently that included urinary tract infection with E. coli and Serratia and has been treated with intravenous antibiotic therapy with Zosyn. She was having some improvement but then developed dehiscence of her sternal wound and there are plans for surgical debridement tomorrow wound culture showing gram-negative bacilli and with at the infectious diseases consultation was requested. The patient continues to have significant respiratory difficulties and is currently on BiPAP for support. Postoperatively the patient was hemodynamically unstable which made even turning of the patient not possible which has resulted in unavoidable areas of skin breakdown, that are now treatable given her improvement 12/10/2017 reveals the patient to be postoperative from the sternal wound debridement. The surgical note as well as discussion with the surgical team reveals evidence of poor bone quality and all of the sternal wires had pulled through her bony areas. Negative pressure therapy is in place. She is tolerating this well. Plastic surgery consult has been requested for reconstruction of her chest in the near future. Gram-negative bacilli growing from the sternal wound. She is quite comfortable after procedure, chest tube was placed of the left cavity and this is improved some left lung function and she seems less short of breath. The daughter is present and her questions were answered. 12/11/2017 reveals the patient to have had some respiratory distress today and is back on BiPAP at this time. She relates that her pain is under much significant control. Been no other new acute complaints are being made. 12/13/2017 the patient remains in the ICU she is currently on BiPAP but relates that she is quite comfortable. We will work with the nursing staff to change her VAC dressing at this time. await the plastic surgery timeline. 12/15/2017 reveals the patient to remain in intensive care unit, her status has worsened and that she developed flash pulmonary edema and respiratory failure requiring reintubation sedation mechanical ventilation. She underwent bronchoscopy today for removal of mucous plugs and to help with the collapsed left lower lobe. The patient has require some vasopressor support but is more stable this afternoon than earlier. She is sedated and comfortable. She has significant decline of hemoglobin is 7.6. Anticoagulation was held. Is being closely monitored by surgery and they await the plastic surgery intervention. 12/16/2017 cases briefly discussed with the cardiothoracic nurse practitioner in that the wound VAC is being changed today. It is unchanged with no difficulties. No further bleeding is noted. Plastic surgery evaluation apparently will occur tomorrow so the surgical plan can be devised. 12/20/2017 since last visit current thoracic has again change the wound VAC without difficulties. She tolerated it well. She remains on the ventilator at this point in time, does not appear to have any plans for weaning because she will have her plastic closure over open chest tomorrow. She's been hemodynamically stable with intermittent atrial flutter. No significant changes of oxygen requirements, drainage from the wound VAC is minimal as is drainage from her chest tube. 12/21/2017 patient is status post the partial plastic closure of her sternal wound. Complete cardiac coverage occurred but only partial closure was possible. Oxygen requirements are improving postoperative and is being closely watched for any further blood loss anemia. 12/23/2017 reveals the patient to be extubated on BiPAP. She is comfortable with her pain level is about a 2. Shortness of breath is not severe. She is unable to eat and a Dobbhoff will be placed a bit later today to help her with nutritional status to help her recovery. The current situation is discussed with the cardiothoracic surgeon team 12/24/2017 reveals evidence of the changes status in that she has now had a tracheostomy applied due to her chronic respiratory failure. Cardiothoracic surgery has changed the dressing today. Patient is comfortable after her surgery. Denies new acute discomforts. 12/25/2017 reveals that the patient is doing well with her tracheostomy. She is on 35% FiO2 with excellent saturations. The patient relates that she is comfortable her pain level is no more than a 4. She is receiving feedings via the Dobbhoff is tolerating that well but is having a few soft stools without swapnil diarrhea. 12/27/2017 patient remained stable after tracheostomy. With pain level is no more than a 2 at this point in time. Feedings via the Dobbhoff are going well. The wound VAC dressing was changed today without difficulties. Leukocytosis is improving. No hypotension. 12/28/2017. Overall the patient has been stable and that her pulmonary status without acute change. Doing well with the tracheostomy. Patient however developed significant abdominal distention with a tympanic abdomen. Abdominal x -ray revealed evidence of ileus. She's been seen by general surgery and they will determine if she needs an NG tube based on x-rays. She apparently is more comfortable this evening that she was earlier in the day. Nursing staff relates no fevers. 12/29/2017 patient is stable. Not having new acute difficulties. Is noted did have a pressure ulceration to the posterior aspect of the scalp that is being treated with a fall offloading cushion. Patient is actually quite comfortable today. Her ileus is starting to improve. Surgery he has no plans for surgical intervention into the abdomen. Is tolerating TPN. 12/30/2017 the patient is stable. She is doing well with her physical therapy and her antibiotic therapy for the sternal wound dehiscence. Ileus is improving and tolerating her TPN well. Objective - Vital Signs Vital signs: Vital Signs Temp 98.1 F 12/30/17 19:30 Pulse 138 H 12/30/17 19:30 Resp 21 12/30/17 19:40 BP 116/54 12/19/17 10:00 Pulse Ox 98 12/30/17 19:30 Intake & Output 12/30/17 12/30/17 12/31/17 06:59 18:59 06:59 Intake Total 831 2565 67 Output Total 1335 1560 70 Balance -504 1005 -3 Weight 99.8 kg 99.8 kg Intake: IV 831 1004 67 Dextrose 5%-0.45% NaCl 1, 30 000 ml @ 10 mls/hr IV . Q24H [facility] Rx#:[id number] Fluconazole in NaCl,Iso- 100 Osm 200 mg In Saline 1 100ml.bag @ 100 mls/hr IVPB DAILY [facility] Rx#: [id number] Meropenem 1 gm In Sodium 100 Chloride 0.9% 100 ml @ 200 mls/hr IVPB Q8HR [facility] Rx#:[id number] Mvi, Adult No.4 with Vit 768 768 64 K 10 ml Trace (Conc-1Ml/ Dose) 1 ml In Foote 3.3%/ Dex 9.8%/Lipid/Lytes 1, 540 ml @ 64 mls/hr IV . Q24H [facility] Rx#:[id number] Pressure Bag 33 36 3 Intake, IV Titration 1551 Amount Mvi, Adult No.4 with Vit 1551 K 10 ml Trace (Conc-1Ml/ Dose) 1 ml In Foote 3.3%/ Dex 9.8%/Lipid/Lytes 1, 540 ml @ 64 mls/hr IV . Q24H [facility] Rx#:[id number] Tube Feeding 10 Output: Drainage 1050 600 40 Right Abdomen 1050 600 40 Urine 285 960 30 Other: Voiding Method Indwelling Catheter Indwelling Catheter Indwelling Catheter ABP, PAP, CO, CI - Last Documented Arterial Blood Pressure 113/75 Pulmonary Artery Pressure 38/33 Cardiac Output 5.8 Cardiac Index 2.9 - Exam Obese 67-year-old woman who is now extubated on BiPAP HEENT: Anicteric conjunctiva are pink and moist nasal mucosa grossly intact without significant lesions, there is no thrush. Oral mucosa is dry but no swapnil lesions could be seen Neck: The neck is supple without significant lymphadenopathy or thyromegaly. Tracheostomy intact without bleeding there is evidence of the posterior scalp lesion please refer to the nursing photography. Lungs: Symmetrical air entry is noted. There is scattered crackles but no swapnil bronchial sounds Heart: Irregular with an audible S1 and S2 soft S4 no audible murmur no click or rub Chest: The patient's mid sternotomy incision is now covered with a postoperative dressing from the plastic closure which is reported to be a partial flap closure Abdomen: Obese, Positive bowel sounds soft and nontender without palpable masses or organomegaly. There was no guarding or rebound. Extremities: The upper and lower extremities have evidence of edema harvest site is intact there is some bruising that is noted especially on the left groin area. IV sites are intact. Skin: With the nursing staff the buttocks pressure ulcerations are evaluated which are showing improvement. The ulceration on the skin fold above her buttocks is also evaluated and appears to be improving. Also improvement of the ulceration to the right wrist area. Skin however is now having some blistering due to her hypoalbuminemia and excessive volume. Sternal wound dressing is dry and intact. Neuro: Comfortable at this time pain level is 4, no acute changes neurologically - Labs CBC & Chem 7: 12/30/17 02:40 12/30/17 02:40 Labs: Abnormal Lab Results - Last 24 Hours (Table) 12/29/17 12/30/17 12/30/17 Range/Units 23:43 02:40 02:40 RBC 2.73 L (3.80-5.40) m/uL Hgb 7.1 L (11.4-16.0) gm/dL Hct 24.1 L (34.0-46.0) % MCHC 29.6 L (31.0-37.0) g/dL RDW 19.3 H (11.5-15.5) % ABG pCO2 (35-45) mmHg ABG pO2 (83-108) mmHg ABG HCO3 (21-25) mmol/L ABG Total CO2 (19-24) mmol/L ABG O2 Saturation (94-97) % Sodium 148 H (137-145) mmol/L Potassium 3.1 L (3.5-5.1) mmol/L Carbon Dioxide 33 H (22-30) mmol/L BUN 40 H (7-17) mg/dL Glucose 124 H (74-99) mg/dL POC Glucose (mg/dL) 139 H (75-99) mg/dL Total Protein 5.7 L (6.3-8.2) g/dL Albumin 2.8 L (3.5-5.0) g/dL 12/30/17 12/30/17 12/30/17 Range/Units 05:43 06:57 11:37 RBC (3.80-5.40) m/uL Hgb (11.4-16.0) gm/dL Hct (34.0-46.0) % MCHC (31.0-37.0) g/dL RDW (11.5-15.5) % ABG pCO2 52 H (35-45) mmHg ABG pO2 126 H (83-108) mmHg ABG HCO3 33 H (21-25) mmol/L ABG Total CO2 35 H (19-24) mmol/L ABG O2 Saturation 99.7 H (94-97) % Sodium (137-145) mmol/L Potassium (3.5-5.1) mmol/L Carbon Dioxide (22-30) mmol/L BUN (7-17) mg/dL Glucose (74-99) mg/dL POC Glucose (mg/dL) 132 H 132 H (75-99) mg/dL Total Protein (6.3-8.2) g/dL Albumin (3.5-5.0) g/dL 12/30/17 Range/Units 17:56 RBC (3.80-5.40) m/uL Hgb (11.4-16.0) gm/dL Hct (34.0-46.0) % MCHC (31.0-37.0) g/dL RDW (11.5-15.5) % ABG pCO2 (35-45) mmHg ABG pO2 (83-108) mmHg ABG HCO3 (21-25) mmol/L ABG Total CO2 (19-24) mmol/L ABG O2 Saturation (94-97) % Sodium (137-145) mmol/L Potassium (3.5-5.1) mmol/L Carbon Dioxide (22-30) mmol/L BUN (7-17) mg/dL Glucose (74-99) mg/dL POC Glucose (mg/dL) 132 H (75-99) mg/dL Total Protein (6.3-8.2) g/dL Albumin (3.5-5.0) g/dL Laboratory Results WBC 8.4 k/uL (3.8-10.6) 12/30/17 02:40 RBC 2.73 m/uL (3.80-5.40) L 12/30/17 02:40 Hgb 7.1 gm/dL (11.4-16.0) L 12/30/17 02:40 Hct 24.1 % (34.0-46.0) L 12/30/17 02:40 MCV 88.2 fL (80.0-100.0) 12/30/17 02:40 MCH 26.1 pg (25.0-35.0) 12/30/17 02:40 MCHC 29.6 g/dL (31.0-37.0) L 12/30/17 02:40 RDW 19.3 % (11.5-15.5) H 12/30/17 02:40 Plt Count 410 k/uL (150-450) 12/30/17 02:40 Neutrophils % 87 % 12/27/17 05:10 Neutrophils % (Manual) 98 % 12/05/17 04:25 Lymphocytes % 5 % 12/27/17 05:10 Lymphocytes % (Manual) 1 % 12/05/17 04:25 Monocytes % 4 % 12/27/17 05:10 Monocytes % (Manual) 1 % 12/05/17 04:25 Eosinophils % 2 % 12/27/17 05:10 Basophils % 0 % 12/27/17 05:10 Myelocytes % 1 % 12/03/17 04:15 Neutrophils # 9.3 k/uL (1.3-7.7) H 12/27/17 05:10 Neutrophils # (Manual) 26.95 k/uL (1.3-7.7) H 12/05/17 04:25 Lymphocytes # 0.5 k/uL (1.0-4.8) L 12/27/17 05:10 Lymphocytes # (Manual) 0.28 k/uL (1.0-4.8) L 12/05/17 04:25 Monocytes # 0.4 k/uL (0-1.0) 12/27/17 05:10 Monocytes # (Manual) 0.28 k/uL (0-1.0) 12/05/17 04:25 Eosinophils # 0.2 k/uL (0-0.7) 12/27/17 05:10 Basophils # 0.0 k/uL (0-0.2) 12/27/17 05:10 Myelocytes # (Manual) 0.17 k/uL (0) H 12/03/17 04:15 Nucleated RBCs 0 /100 WBC (0-0) 12/05/17 04:25 Manual Slide Review Performed 12/05/17 04:25 Polychromasia Present 12/03/17 04:15 Hypochromasia Marked 12/30/17 02:40 Poikilocytosis Slight 12/30/17 02:40 Anisocytosis Slight 12/30/17 02:40 Microcytosis Slight 12/17/17 04:45 Target Cells Present 12/03/17 04:15 PT 10.8 sec (9.0-12.0) 12/21/17 04:50 INR 1.1 (<1.2) 12/21/17 04:50 APTT 23.9 sec (22.0-30.0) 12/21/17 04:50 Fibrinogen 334 mg/dL (200-500) 11/26/17 04:22 Sample Site kamilah 12/30/17 05:43 ABG pH 7.41 (7.35-7.45) 12/30/17 05:43 ABG pCO2 52 mmHg (35-45) H 12/30/17 05:43 ABG pO2 126 mmHg (83-108) H 12/30/17 05:43 ABG HCO3 33 mmol/L (21-25) H 12/30/17 05:43 ABG Total CO2 35 mmol/L (19-24) H 12/30/17 05:43 ABG O2 Saturation 99.7 % (94-97) H 12/30/17 05:43 ABG Base Excess 8.3 mmol/L 12/30/17 05:43 ABG Hematocrit 24 % (34.0-46.0) L 11/25/17 17:37 Robbi Test Yes 12/30/17 05:43 ABG Sodium 144 mmol/L (135-146) 11/25/17 17:37 ABG Potassium 3.8 mmol/L (3.4-4.5) 11/25/17 17:37 ABG Ionized Calcium 4.0 mg/dL (4.5-5.3) L 11/25/17 17:37 ABG Glucose 139 mg/dL (75-99) H 11/25/17 17:37 ABG Lactic Acid 2.8 mmol/L (0.5-1.6) H* 11/25/17 17:37 Hemoglobin 7.8 gm/dL (11.4-16.0) L 11/25/17 17:37 FiO2 35 % 12/30/17 05:43 Sodium 148 mmol/L (137-145) H 12/30/17 02:40 Potassium 3.1 mmol/L (3.5-5.1) L 12/30/17 02:40 Chloride 106 mmol/L (98-107) 12/30/17 02:40 Carbon Dioxide 33 mmol/L (22-30) H 12/30/17 02:40 Anion Gap 9 mmol/L 12/30/17 02:40 BUN 40 mg/dL (7-17) H 12/30/17 02:40 Creatinine 0.90 mg/dL (0.52-1.04) 12/30/17 02:40 Est GFR (MDRD) Af Amer >60 (>60 ml/min/1.73 sqM) 12/07/17 04:00 Est GFR (MDRD) Non-Af >60 (>60 ml/min/1.73 sqM) 12/07/17 04:00 Est GFR (CKD-EPI)AfAm 77 (>60 ml/min/1.73 sqM) 12/30/17 02:40 Est GFR (CKD-EPI)NonAf 67 (>60 ml/min/1.73 sqM) 12/30/17 02:40 Glucose 124 mg/dL (74-99) H 12/30/17 02:40 POC Glucose (mg/dL) 132 mg/dL (75-99) H 12/30/17 17:56 POC Glu Line Servicer ID [email or web address], True 12/30/17 17:56 Calcium 9.3 mg/dL (8.4-10.2) 12/30/17 02:40 Ionized Calcium Bruce 4.7 mg/dL (4.5-5.3) 12/11/17 15:45 Phosphorus 3.7 mg/dL (2.5-4.5) 12/30/17 02:40 Magnesium 2.3 mg/dL (1.6-2.3) 12/30/17 02:40 Total Bilirubin 0.4 mg/dL (0.2-1.3) 12/30/17 02:40 AST 35 U/L (14-36) 12/30/17 02:40 ALT 31 U/L (9-52) 12/30/17 02:40 Alkaline Phosphatase 80 U/L (38-126) 12/30/17 02:40 Total Protein 5.7 g/dL (6.3-8.2) L 12/30/17 02:40 Albumin 2.8 g/dL (3.5-5.0) L 12/30/17 02:40 Prealbumin 7.0 mg/dL (18.0-42.0) L 12/27/17 05:10 Triglycerides 130 mg/dL (<150) 12/29/17 11:45 Cholesterol 80 mg/dL (<200) 12/29/17 11:45 LDL Cholesterol, Calc 34 mg/dL (0-99) 12/29/17 11:45 HDL Cholesterol 20 mg/dL (40-60) L 12/29/17 11:45 Arterial Blood Potassium 3.8 mmol/L (3.4-4.5) 11/25/17 17:37 Arterial Blood Glucose 139 mg/dL (75-99) H 11/25/17 17:37 Urine Color Yellow 12/04/17 10:00 Urine Appearance Cloudy (Clear) H 12/04/17 10:00 Urine pH 5.5 (5.0-8.0) 12/04/17 10:00 Ur Specific [place] 1.015 (1.001-1.035) 12/04/17 10:00 Urine Protein Trace (Negative) H 12/04/17 10:00 Urine Glucose (UA) Negative (Negative) 12/04/17 10:00 Urine Ketones Negative (Negative) 12/04/17 10:00 Urine Blood Negative (Negative) 12/04/17 10:00 Urine Nitrite Negative (Negative) 12/04/17 10:00 Urine Bilirubin Negative (Negative) 12/04/17 10:00 Urine Urobilinogen <2.0 mg/dL (<2.0) 12/04/17 10:00 Ur Leukocyte Esterase Negative (Negative) 12/04/17 10:00 Urine RBC 7 /hpf (0-5) H 12/04/17 10:00 Urine WBC 1 /hpf (0-5) 12/04/17 10:00 Ur Squamous Epith Cells 8 /hpf (0-4) H 12/04/17 10:00 Urine Bacteria Occasional /hpf (None) H 12/04/17 10:00 Urine Mucus Rare /hpf (None) H 12/04/17 10:00 Fluid Source Bronchial Wash 12/15/17 10:40 Fluid Color Colorless 12/15/17 10:40 Fluid Appearance Cloudy 12/15/17 10:40 Fluid RBC 150 /uL 12/15/17 10:40 Fluid Nucleated Cells 6900 /uL 12/15/17 10:40 Fluid Polynuclear WBCs 95 % 12/15/17 10:40 Fluid Mononuclear WBCs 5 % 12/15/17 10:40 Vancomycin Trough 30.0 ug/mL 12/27/17 11:36 Random Vancomycin 21.2 ug/mL 12/16/17 04:15 Heparin-Ind Plt Ab Scrn 0.231 OD (<0.4) 11/29/17 04:50 Virus Source See Below 12/15/17 10:40 Viral Test See Below 12/15/17 10:40 Virus Analysis Interp See Below 12/15/17 10:40 Blood Type A Positive 12/21/17 11:28 Blood Type Recheck No 12/21/17 11:28 Antibody Screen NEGATIVE 12/21/17 11:28 Crossmatch See Detail 12/14/17 10:10 Transfuse Cryo [id number] 11/26/17 00:39 Transfuse Plasma 12/15/2017 12/15/17 05:51 Transfuse Platelets [id number] 11/25/17 14:55 Spec Expiration Date 12/24/2017 - 232712/21/17 11:28 Microbiology 12/15/17 10:40 Bronchial Washings - Left Acid Fast Bacilli Smear - Final 12/15/17 10:40 Bronchial Washings - Left Acid Fast Bacilli Culture - Preliminary 12/10/17 10:50 Chest Acid Fast Bacilli Smear - Final 12/10/17 10:50 Chest Acid Fast Bacilli Culture - Preliminary 12/10/17 10:45 Chest Acid Fast Bacilli Smear - Final 12/10/17 10:45 Chest Acid Fast Bacilli Culture - Preliminary 12/10/17 10:40 Chest Fungal Culture - Preliminary 12/10/17 10:45 Chest Fungal Culture - Preliminary 12/10/17 10:50 Chest Fungal Culture - Preliminary 12/24/17 11:30 Catheter Tip Catheter Tip Culture - Final 12/15/17 10:40 Bronchial Washings - Left Fungal Culture - Preliminary Rachana albicans 12/15/17 10:40 Bronchial Washings - Left Gram Stain - Final 12/15/17 10:40 Bronchial Washings - Left Bronchial Washings Culture - Final Rachana albicans 12/14/17 21:30 Sputum Gram Stain - Final 12/14/17 21:30 Sputum Sputum Culture - Final Rachana albicans 12/10/17 10:50 Chest Anaerobic Culture - Final 12/10/17 10:40 Chest Anaerobic Culture - Final 12/10/17 10:45 Chest Anaerobic Culture - Final 12/13/17 05:27 Urine,Catheterized Urine Culture - Final 12/10/17 10:40 Chest Gram Stain - Final 12/10/17 10:40 Chest Wound Culture - Final Serratia marcescens 12/10/17 10:45 Chest Gram Stain - Final 12/10/17 10:45 Chest Tissue Culture - Final Serratia marcescens 12/10/17 10:50 Chest Gram Stain - Final 12/10/17 10:50 Chest Tissue Culture - Final Serratia marcescens 12/07/17 15:40 Chest Gram Stain - Final 12/07/17 15:40 Chest Wound Culture - Final Serratia marcescens 12/04/17 10:00 Urine,Voided Urine Culture - Final Escherichia coli Serratia marcescens 11/26/17 04:00 Sputum Gram Stain - Final 11/26/17 04:00 Sputum Sputum Culture - Final Assessment and Plan (1) Severe mitral regurgitation Current Visit: Yes Status: Chronic Code(s): I34.0 - NONRHEUMATIC MITRAL ( VALVE) INSUFFICIENCY SNOMED Code(s): 14830537 (2) CAD (coronary artery disease) Current Visit: Yes Status: Chronic Code(s): I25.10 - ATHSCL HEART DISEASE OF [place] CORONARY ARTERY W/O ANG PCTRS SNOMED Code(s): 38582574 (3) Acute blood loss as cause of postoperative anemia Current Visit: Yes Status: Acute Code(s): D62 - ACUTE POSTHEMORRHAGIC ANEMIA SNOMED Code(s): 03588564459588078 (4) Pressure ulcer of contiguous region involving back and buttock, stage 3 Current Visit: Yes Status: Acute Code(s): L89.43 - PRESSR ULCER OF CONTIG SITE OF BACK, BUTTOCK AND HIP, STG 3 SNOMED Code(s): 126853106 (5) Sternal wound dehiscence Narrative/Plan: 67-year-old woman presents to Hospital for treatment of her severe mitral irritation. Underwent mitral valve replacement, coronary artery bypass grafting 1, Maze procedure and clipping of the left atrial appendage with a complication of the left ventricular wall tear. The patient has had a very protracted recovery she is now day 14 post operative and is still having difficulty with her respiratory status requiring BiPAP. The patient's nutritional status and underlying comorbidities have complicated her care. She now has evidence of the sternal dehiscence with evidence of gram negatives bacilli being found at the site. There is evidence of urinary tract infection with E. coli and Serratia. This Serratia species is somewhat resistant and consequently we'll alter the current antimicrobial therapy from Zosyn to meropenem to ensure coverage for other potential pathogens that are resistant that could be in the sternal wound while we await cultures. The patient will be going to the operating room tomorrow for debridement and wound VAC placement. The cultures were further direct the overall course of antibiotics. Urinary infection appears to be doing somewhat better. The patient fortunately is comfortable and doing well with her BiPAP. 12/10/2017 the patient is status post surgery and actually is feeling a bit better this afternoon than yesterday. Her pain is quite well controlled. She is not on BiPAP. She is less short of breath. Wound culture has verified the Serratia marcescens to the sternal wound. We'll constantly continue the current course of meropenem due to some of the resistance patterns or seeing with the species. Continue local care at this point time with the negative pressure system to the sternal wound. The plastic surgery consult is being requested for reconstruction of her chest. She will require a course of intravenous antibiotic therapy given her complex infection. Dual-lumen PICC is already in place. We'll repeat the discharge planners as to her place of rehab. 12/11/2017 the patient is metabolically stable but is having difficulties with her respiratory status and is now back on BiPAP which has been intermittent over the last multiple days. Negative pressure therapy remains intact and the sternum and we await the plastic surgery intervention. 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 Continue supportive care, and nutritional supplements as possible to improve for tissue healing. 12/13/2017 patient is on BiPAP. She is comfortable at this time. Receiving her intravenous antibiotic therapy without difficulties. At this time the surgeon present in a sterile fashion the wound VAC is removed. Surgeon evaluates and then the wound VAC is reapplied with 2 of the white foam, periwound protected with DuoDERM no difficulty with the seal. Merrem continues. 12/15/2017 the patient has had marked worsening of her status in that she had respiratory failure requiring reintubation and mechanical ventilation. She is now sedated and comfortable but has had some hemodynamic instability and is now back on vasopressor therapy. Bronchoscopy is performed and suctioning of mucous plugs as allowed some improvement of her pulmonary status. Further cultures are process. Meropenem and vancomycin continue for the isolated Serratia and concerns for resistant gram-positive infection at this time. Plastic surgery evaluation is in process and surgical plans for later this week appear to be possible. 12/16/2017 reveals the patient to be stable from the last 24 hours. Her ventilatory settings are similar. She's currently not on vasopressor therapy. She is tolerating current antibiotic therapy well with no difficulties with rash and diarrhea or marked changes of her hematological parameters. She's had no further active bleeding. Sputum culture with gram-positive cocci seen vancomycin was added we await final cultures. 12/20/2017 patient remained stable and is being prepped for her sternal reconstruction surgery tomorrow. She's not on vasopressor therapy, and vent settings are stable. Most recent bronchoscopy showed mucous plug no evidence of any new pathogens except yeast was found likely from upper airways. Fluconazole was added given her significant risks, although fungal pneumonia is not occurring at this time. At the time of reconstruction repeat samplings from her sternum will be helpful to help direct the course of antibiotic therapy , pathology and culture of the sternum will be helpful. Remains on the meropenem and vancomycin at this time. 12/21/2017 the patient is status post the sternal reconstruction with muscle flap, reportedly is only a partial closure at this time. However visit. The cardiac structure is completely covered. The patient is showing improvement in her cardiopulmonary status today. No active bleeding is noted. She is tolerating current antibiotic therapy well with meropenem and vancomycin. Await final culture and pathological data to help derive the course of her antibiotic therapy 12/23/2017 reveals the patient to be improved, she has been extubated and tolerating BiPAP well. The case is discussed with the cardiothoracic surgeon. The muscle flap was then performed and there is a biological skin substitute over the flap. She related that the plastic surgeon would not allow a wound VAC to be placed for approximately 10 days after the surgery. We will monitor. Continue current antibiotic therapy planning a multiweek course of therapy for the complex sternal wound infection. 12/24/2017 reveals the patient to have further improvement that she has had a tracheostomy placed. This will hopefully help her long-term weaning situation and also help with the nutritional difficulties. As she has improvement of her status hopefully the significant difference with her skin from the edema low albumin and blistering will improve. Receiving extensive antibiotic therapy for the sternal wound dehiscence will continue with the meropenem and vancomycin at this time. 12/25/2017 reveals the patient to have some improvement in the last 24 hours. She's doing well with a tracheostomy and is on 35% FiO2. Pain control is well at this point in time. Her spitting edema seems to be slightly improving and does not have as many blisters that she was having. Still does have anasarca but appears to be a bit less tight than she was a day ago. Her wounds are improving with the local wound care. Antibiotic therapy continues with meropenem and vancomycin for the sternal wound dehiscence and infection. Dressing changes have been per the cardiothoracic team to the chest wound. The abdominal wound is healing well and is having some serous drainage related to the anasarca. Hopefully with improving edema status and improve nutritional status anasarca will resolve. 12/27/2017 reveals a patient with further improvement. Her anasarca is improving and she is having less edema. She is tolerating the intravenous antibiotic therapy of meropenem and vancomycin for her sternal wound dehiscence. Leukocytosis in general is improved. No other new infections are noted. She had a wound VAC dressing change today of the sternal area. 12/28/2017 reveals the patient to have developed some bowel distention and concerns to ileus. She's been seen by general surgery. He will determine if she needs to have her Dobbhoff removed and an NG tube place. The patient has significant hypo albuminemia and is in need of the extensive supplementation, consequently TPN was requested per the surgeon. She will remain on her antibiotic therapy planning 6 weeks for the complex sternal dehiscence. Cardiothoracic surgery have changed her VAC dressing to her sternal wound. 12/29/2017 patient continues to tolerate antibiotic therapy well. Orders have been clarified for the 6 weeks of meropenem and vancomycin. cardiothoracic is in charge of the dressing changes to the complex sternal dehiscence wound. Tolerating TPN well with overall goal to improve her very low protein which will help her significant and extensive tissue edema. 12/30/2017 patient continues to have some improvement, if she is improving will likely go to select specialty for her long-term weaning of physical therapy.she is doing better from her ileus and TPN is being well-tolerated.will be on intravenous antibiotic therapy through 01/21/2018 Current Visit: Yes Status: Acute Code(s): T81.32XA - DISRUPTION OF INTERNAL OPERATION (SURGICAL) WOUND, NEC, INIT SNOMED Code(s): 83625732
[2017-12-30] MEDS: ALPRAZolam 0.25 MG TAB PO PRN (21:11)
[2017-12-30] MEDS: POTASSIUM CHLORIDE 10 MEQ in WATER FOR INJECTION 1 100ML.BAG IVPB SCH (23:17)
[2017-12-30 23:41] LABS: Glucose,Whole Blood 119 mg/dL (75-99)
[2017-12-31] MEDS: INSULIN ASPART 100 UNIT/ML 1 ML 10 ML VIAL SQ SCH ×4 (00:04→18:16)
[2017-12-31] MEDS: HEPARIN SODIUM,PORCINE 5,000 UNIT/ML 1 ML VIAL SQ SCH ×3 (00:05→18:16)
[2017-12-31] MEDS: MEROPENEM 1 GM in SODIUM CHLORIDE 0.9% 100 ML IVPB SCH ×3 (00:28→18:17)
[2017-12-31] MEDS: POTASSIUM CHLORIDE 10 MEQ in WATER FOR INJECTION 1 100ML.BAG IVPB SCH ×2 (01:29→19:55)
[2017-12-31] MEDS: IPRATROPIUM-ALBUTEROL 3 ML NEB INHALATION SCH ×5 (03:42→20:15)
[2017-12-31 04:47] LABS: Anisocytosis Slight; HCT 26.1 % (34.0-46.0); HGB 7.9 gm/dL (11.4-16.0); Hypochromasia Marked; MCH 26.6 pg (25.0-35.0); MCHC 30.4 g/dL (31.0-37.0); MCV 87.7 fL (80.0-100.0); Mean Platelet Volume 7.5; Platelet Count 420 k/uL (150-450); Poikilocytosis Slight; RBC 2.97 m/uL (3.80-5.40); RDW 19.4 % (11.5-15.5); WBC 10.1 k/uL (3.8-10.6)
[2017-12-31 04:56] LABS: Albumin 3.1 g/dL (3.5-5.0); Calcium 9.5 mg/dL (8.4-10.2); Magnesium 2.3 mg/dL (1.6-2.3); Phosphorus 3.3 mg/dL (2.5-4.5); Potassium 3.9 mmol/L (3.5-5.1); Total Bilirubin 0.4 mg/dL (0.2-1.3); Total Protein 6.2 g/dL (6.3-8.2)
[2017-12-31 05:03] LABS: ABG Base Excess 8.6 mmol/L; ABG HCO3 33 mmol/L (21-25); ABG Oxygen Saturation 98.9 % (94-97); ABG PCO2 48 mmHg (35-45); ABG PH 7.44 (7.35-7.45); ABG PO2 109 mmHg (83-108); ABG TCO2 34 mmol/L (19-24)
[2017-12-31 06:41] LABS: Glucose,Whole Blood 133 mg/dL (75-99)
[2017-12-31] MEDS: METOCLOPRAMIDE 5 MG/ML 2 ML VIAL IVP SCH ×4 (06:57→18:17)
[2017-12-31] MEDS: BUDESONIDE 1 MG/2 ML NEBU INHALATION SCH ×2 (07:33→20:15)
--- NOTE | 2017-12-31 08:02 | XR ---
EXAMINATION TYPE: XR chest 1V portable DATE OF EXAM: 12/31/2017 COMPARISON: Prior chest 12/30/2017 HISTORY: Ventilator management, abnormal chest x-ray TECHNIQUE: Single frontal view of the chest is obtained. FINDINGS: Patient is rotated. Findings are similar. Heart remains enlarged. There may be some improv ement in the central vascularity and interstitial prominence. No evident pneumothorax. Tracheostomy t ube, Dobbhoff tube, left-sided PICC line, cardiac valve replacement and atrial appendage clipping are again noted. Gas distended stomach is noted. Retrocardiac density persists. IMPRESSION: There may be some improvement in aeration within the lungs. Exam is rotated. Correlate f or left lower lobe atelectasis versus pneumonia, edema and associated effusion. Cardiomegaly.
--- NOTE | 2017-12-31 08:04 | XR ---
2 view abdomen HISTORY: Ileus 2 views of the abdomen on 3 images correlated to prior exam 12/29/2017 Dobbhoff tube is present, distal tip is within the proximal duodenum region. Gas-filled loops of pastora l are again noted. Postop changes to the right hemiabdomen are again seen. No evident pneumoperitoneu m. Retrocardiac density persists. Gas-distended stomach is present. IMPRESSION: Findings compatible with patient's history of ileus.
[2017-12-31] MEDS: ATORVASTATIN 40 MG TAB PO SCH (08:51)
[2017-12-31] MEDS: AMIODARONE 200 MG TAB PO SCH ×2 (08:51→20:22)
[2017-12-31] MEDS: PANTOPRAZOLE 40 MG TABLET PO SCH (08:51)
[2017-12-31] MEDS: DILTIAZEM ORAL 30 MG TAB PO SCH (08:51)
[2017-12-31] MEDS: FUROSEMIDE 10 MG/ML 4 ML VIAL IV SCH ×2 (08:52→20:23)
[2017-12-31] MEDS: FLUCONAZOLE IN NACL,ISO-OSM 200 MG in SALINE 1 100ML.BAG IVPB SCH (08:52)
[2017-12-31] MEDS: ASPIRIN 81 MG PO SCH (08:52)
[2017-12-31] MEDS: LACTOBACILLUS ACIDOPH & BULGAR 1 EACH PACKET PO SCH ×3 (08:53→22:49)
[2017-12-31] MEDS: LACTULOSE 20 GM/30 ML CUP PO SCH ×2 (08:53→20:24)
[2017-12-31] MEDS: METOPROLOL TARTRATE 50 MG TAB NG-TUBE SCH ×2 (08:53→20:24)
[2017-12-31] MEDS: BISACODYL 10 MG SUPP RECTAL SCH (08:55)
[2017-12-31] MEDS ORDERED: POTASSIUM BICARBONATE/CIT AC 20 MEQ TABLET.EFF NG-TUBE SCH (09:00)
--- NOTE | 2017-12-31 10:16 | P.PN ---
Subjective Progress Note Date: 12/31/17 Principal diagnosis: Severe mitral regurgitation. Coronary artery disease. Paroxysmal atrial fibrillation on Coumadin for anticoagulation. Recent hospitalization for lower GI bleed, duodenal ulcer. History of left subclavian stenosis with stent placement 2014 with recent discovery of critical re-in-stent stenosis. Previous tobacco dependence with preoperative FEV1 60% of predicted. Hypertension. Hyperlipidemia. Gallbladder disease. Family history of heart disease. Preoperative nasal swab positive for MRSA. Preoperative anemia. POD #36 mitral valve replacement using a 25 mm Ribera bioprosthetic tissue valve. Coronary artery bypass grafting 1, reverse saphenous vein graft to the obtuse marginal artery. Maze procedure. Endoscopic harvesting of the right greater saphenous vein. Epi-aortic ultrasound. Intraoperative transesophageal echocardiogram. Ligation of the left atrial appendage using a 40 mm AtriClip. Intraoperative left ventricular wall tear, an unexpected but potential outcome of surgery Acute blood loss anemia, and expected outcome given patient's preoperative anemia and intraoperative bleeding. Postoperative prolonged mechanical ventilation secondary to hemodynamic instability, and unexpected but potential outcome of surgery given the extensive nature of her perioperative course. POD #7 placement of a #8 Shiley nonfenestrated tracheostomy tube. Sternal incision dehiscence, a possible outcome of surgery given patient's obesity, nutrition status, debility POD #10 right rectus abdominous muscle flap closure, open sternal wound. Closure of sternal wound and muscle flap with skin graft substitute, 238 cm. Implantation of reconstructive graft for closure of abdominal wall wound, [address] Krause POD #21 sternal wound debridement with placement of wound VAC. Postoperative left lower lobe collapse secondary to mucous plugging, and unexpected but potential outcome of surgery. Bronchial washings positive for Rachana species. POD #16 bronchoscopy and bronchoalveolar lavage of the left lower lobe and extraction of mucous plug. Postoperative ileus, an unexpected but potential outcome of surgery. Patient's currently lying in bed on mild distress. Denies pain, shortness of breath. Does complain of nausea and excessive burping. Trickle tube feedings were started yesterday, patient has not tolerated well and this was stopped again this morning. Objective - Vital Signs Vital signs: Vital Signs Temp 98.8 F 12/31/17 04:30 Pulse 141 H 12/31/17 07:58 Resp 21 12/31/17 07:30 BP 116/54 12/19/17 10:00 Pulse Ox 96 12/31/17 07:30 Intake & Output 12/30/17 12/31/17 12/31/17 18:59 06:59 18:59 Intake Total 2565 831 67 Output Total 1560 1040 475 Balance 1005 209 -408 Weight 99.8 kg Intake: IV 1004 801 67 Fluconazole in NaCl,Iso- 100 Osm 200 mg In Saline 1 100ml.bag @ 100 mls/hr IVPB DAILY [facility] Rx#: [id number] Meropenem 1 gm In Sodium 100 Chloride 0.9% 100 ml @ 200 mls/hr IVPB Q8HR [facility] Rx#:[id number] Mvi, Adult No.4 with Vit 768 768 64 K 10 ml Trace (Conc-1Ml/ Dose) 1 ml In Foote 3.3%/ Dex 9.8%/Lipid/Lytes 1, 540 ml @ 64 mls/hr IV . Q24H [facility] Rx#:[id number] Pressure Bag 36 33 3 Intake, IV Titration 1551 Amount Mvi, Adult No.4 with Vit 1551 K 10 ml Trace (Conc-1Ml/ Dose) 1 ml In Foote 3.3%/ Dex 9.8%/Lipid/Lytes 1, 540 ml @ 64 mls/hr IV . Q24H [facility] Rx#:[id number] Tube Feeding 10 30 Output: Gastric Drainage 400 Drainage 600 690 25 Right Abdomen 600 690 25 Urine 960 350 50 Other: Voiding Method Indwelling Catheter Indwelling Catheter ABP, PAP, CO, CI - Last Documented Arterial Blood Pressure 112/66 Pulmonary Artery Pressure 38/33 Cardiac Output 5.8 Cardiac Index 2.9 - Constitutional General appearance: Present: cooperative, mild distress, obese - Respiratory Details: Lungs sounds diminished bilaterally. Respirations even, nonlabored. Currently on mechanical ventilation, settings assist control mode, FiO2 35%, tidal volume 400, respiratory rate 20, PEEP 5. ABGs this morning 7.4/40/109/33/8.6/98% on 35 % FiO2. #8 Shiley tracheostomy tube present, midline, sutures in place. - Cardiovascular Details: S1, S2 present. Rapid, uncontrolled atrial flutter on telemetry. Open chest with wound VAC in place. Palpable peripheral pulses bilaterally. Generalized edema present. Gentle Vance wraps present to bilateral lower extremities from toes to knees. No calf pain or tenderness noted. SCDs present. Right axillary arterial line, left brachial PICC line present. - Gastrointestinal Gastrointestinal Comment(s): Abdomen soft, nontender, slightly distended, obese. Active bowel sounds present 4 quadrants. Tympanic sounds present over abdomen. Dobbhoff in place , clamped. Tube feeding placed back on hold. Last documented bowel movement December 29. TPN infusing through PICC line at 64 mL/h. - Genitourinary Genitourinary Comment(s): Mason present draining clear, yellow urine. Output 15-25 mL per hour overnight , excellent diuresis after Lasix given yesterday. - Integumentary Integumentary Comment(s): Skin is warm and dry. Open chest with wound VAC in place. Pressure ulcer present to sacral area with local wound care. Area of eschar present to occipital area. HENRI drain present to the right lower abdomen with thin serous drainage, approximately 30-70 mL per hour. - Neurologic Neurologic: Present: CNII-XII intact - Musculoskeletal Musculoskeletal: Present: generalized weakness - Psychiatric Psychiatric: Present: A&O x's 3, appropriate affect, intact judgment & insight - Allied health notes Allied health notes reviewed: nursing - Labs CBC & Chem 7: 12/31/17 04:30 12/31/17 04:30 Labs: Abnormal Lab Results - Last 24 Hours (Table) 12/30/17 12/30/17 12/30/17 Range/Units 11:37 17:56 23:39 RBC (3.80-5.40) m/uL Hgb (11.4-16.0) gm/dL Hct (34.0-46.0) % MCHC (31.0-37.0) g/dL RDW (11.5-15.5) % ABG pCO2 (35-45) mmHg ABG pO2 (83-108) mmHg ABG HCO3 (21-25) mmol/L ABG Total CO2 (19-24) mmol/L ABG O2 Saturation (94-97) % Sodium (137-145) mmol/L Carbon Dioxide (22-30) mmol/L BUN (7-17) mg/dL Glucose (74-99) mg/dL POC Glucose (mg/dL) 132 H 132 H 119 H (75-99) mg/dL Total Protein (6.3-8.2) g/dL Albumin (3.5-5.0) g/dL 12/31/17 12/31/17 12/31/17 Range/Units 04:30 04:30 04:59 RBC 2.97 L (3.80-5.40) m/uL Hgb 7.9 L (11.4-16.0) gm/dL Hct 26.1 L (34.0-46.0) % MCHC 30.4 L (31.0-37.0) g/dL RDW 19.4 H (11.5-15.5) % ABG pCO2 48 H (35-45) mmHg ABG pO2 109 H (83-108) mmHg ABG HCO3 33 H (21-25) mmol/L ABG Total CO2 34 H (19-24) mmol/L ABG O2 Saturation 98.9 H (94-97) % Sodium 147 H (137-145) mmol/L Carbon Dioxide 32 H (22-30) mmol/L BUN 37 H (7-17) mg/dL Glucose 120 H (74-99) mg/dL POC Glucose (mg/dL) (75-99) mg/dL Total Protein 6.2 L (6.3-8.2) g/dL Albumin 3.1 L (3.5-5.0) g/dL 12/31/17 Range/Units 06:40 RBC (3.80-5.40) m/uL Hgb (11.4-16.0) gm/dL Hct (34.0-46.0) % MCHC (31.0-37.0) g/dL RDW (11.5-15.5) % ABG pCO2 (35-45) mmHg ABG pO2 (83-108) mmHg ABG HCO3 (21-25) mmol/L ABG Total CO2 (19-24) mmol/L ABG O2 Saturation (94-97) % Sodium (137-145) mmol/L Carbon Dioxide (22-30) mmol/L BUN (7-17) mg/dL Glucose (74-99) mg/dL POC Glucose (mg/dL) 133 H (75-99) mg/dL Total Protein (6.3-8.2) g/dL Albumin (3.5-5.0) g/dL - Imaging and Cardiology Chest x-ray: report reviewed, image reviewed Abdominal x-ray: report reviewed, image reviewed Assessment and Plan (1) Acute blood loss anemia Current Visit: Yes Status: Acute Code(s): D62 - ACUTE POSTHEMORRHAGIC ANEMIA SNOMED Code(s): 237768579 (2) CAD (coronary artery disease) Current Visit: Yes Status: Chronic Code(s): I25.10 - ATHSCL HEART DISEASE OF [place] CORONARY ARTERY W/O ANG PCTRS SNOMED Code(s): 43055627 (3) Hyperlipidemia Current Visit: Yes Status: Chronic Code(s): E78.5 - HYPERLIPIDEMIA, UNSPECIFIED SNOMED Code(s): 54028833 (4) Hypertension Current Visit: Yes Status: Chronic Code(s): I10 - ESSENTIAL (PRIMARY) HYPERTENSION SNOMED Code(s): 92622102 (5) Severe mitral regurgitation Current Visit: Yes Status: Chronic Code(s): I34.0 - NONRHEUMATIC MITRAL ( VALVE) INSUFFICIENCY SNOMED Code(s): 58676561 (6) Stenosis of left subclavian artery Current Visit: Yes Status: Chronic Code(s): I77.1 - STRICTURE OF ARTERY SNOMED Code(s): 11791976583526549 (7) Paroxysmal atrial fibrillation Current Visit: No Status: Resolved Code(s): I48.0 - PAROXYSMAL ATRIAL FIBRILLATION SNOMED Code(s): 024661329 (8) History of GI bleed Current Visit: No Status: Resolved Code(s): Z87.19 - PERSONAL HISTORY OF OTHER DISEASES OF THE DIGESTIVE SYSTEM SNOMED Code(s): 113792719 (9) Family history of coronary artery disease Current Visit: Yes Status: Chronic Code(s): Z82.49 - FAMILY HX OF ISCHEM HEART DIS AND OTH DIS OF THE CIRC SYS SNOMED Code(s): 622039798 (10) Ileus, postoperative Current Visit: Yes Status: Acute Code(s): K91.89 - OTH POSTPROCEDURAL COMPLICATIONS AND DISORDERS OF DGSTV SYS; K56.7 - ILEUS, UNSPECIFIED SNOMED Code(s): 447376157 (11) Pressure ulcer of contiguous region involving back and buttock, stage 3 Current Visit: Yes Status: Acute Code(s): L89.43 - PRESSR ULCER OF CONTIG SITE OF BACK, BUTTOCK AND HIP, STG 3 SNOMED Code(s): 953851756 (12) Sternal wound dehiscence Current Visit: Yes Status: Acute Code(s): T81.32XA - DISRUPTION OF INTERNAL OPERATION (SURGICAL) WOUND, NEC, INIT SNOMED Code(s): 91313614 Plan: 1. Continue baby aspirin, statin, subcu heparin, beta krunal. Will increase beta krunal therapy as tolerated. 2. Continue amiodarone for atrial fibrillation prophylaxis. No further IV amiodarone. 3. Continue Cardizem for rate control. 4. Ventilator management per pulmonology. Wean as tolerated. 5. Continue meropenem, Vanco per Dr. Olivera. Continue Diflucan. 6. Will monitor labs, chest x-rays. 7. Bronchodilators per pulmonology. 8. Will hold off on Coumadin as patient will need for future surgery for chest closure, possible PEG. No IV heparin. 9. GI/DVT prophylaxis. 10. Increase activity. PT/OT/cardiac rehab following. 11. Hold tube feedings for now, Gen. surgery managing. Continue TPN. No contraindication to PEG tube placement per Dr. Krause. 12. Continue IV Reglan every 6 hours, lactulose 3 times a day per general surgery to stimulate bowel. 13. Keep Mason for strict accurate intake and output. 14. Wound VAC to be changed on Wednesday, Wednesday, and Wednesday by nurse practitioner. Will be changed today. 15. Local wound care to back of head and lower back. 16. More recommendations as patient progresses. Patient will need evaluation for select specialty for discharge. Time with Patient: Greater than 30
[2017-12-31] MEDS ORDERED: LIDOCAINE 2% GEL 5 ML TUBE TOPICAL ONE (10:22)
[2017-12-31] MEDS: DEXTROSE 5%-0.45% NACL 1,000 ML IV SCH (10:28)
--- NOTE | 2017-12-31 10:31 | P.PN ---
Subjective Progress Note Date: 12/31/17 A 67-year-old female patient was being seen in follow-up in the intensive care unit. The patient is postop day #32 following her cardiac surgery. The patient underwent a one-vessel bypass surgery and mitral valve replacement and I 'm seeing her today in follow-up. Events postop were all noted and I was updated by the nursing staff regarding details on her progress. The patient underwent a surgical flap of the sternal wound as the patient had wound dehiscence and infection and she is currently postop day #6. The patient also has a tracheostomy tube in place and the patient is postop day #3 post trach. The previous cultures have indicated Serratia marcescens and the patient remains on IV Merrem. Note that during the course of her ICU stay the patient developed complete left lung collapse and she required bronchoscopy and the sputum has indicated Rachana. She is also on Diflucan. The patient also has a tracheostomy tube in place and the patient is postop day #3 post trach. T This morning, the patient is awake and alert. She is following commands and answering questions. She is an assist-control mode of ventilation. The patient is being given brief trials with pressure support and she initially started tolerating pressure support for one hour then subsequently 2 hours. She is not ready for further weaning or prolonged periods where she is placed on pressure support. Currently she is on a assist-control mode at the rate of 20 with tidal volume 400, and 35% FiO2 with a PEEP of 5. She has a tracheostomy tube which is a Shiley trach tube #8. Surgical wound site on the tracheostomy tube is clean. The patient is not having significant orotracheal secretions. The patient is a bit tachypneic as her abdomen is somewhat distended on today's evaluation. I can't understand that the patient was throwing up throughout the night. Her abdomen is somewhat distended and tympanic. She is producing some loose bowel movements. The patient had a Dobbhoff catheter for enteral feeding and nutritional support. The feeding was stopped this morning. She is not complaining of any abdominal pain however abdomen is distended. On today's chest x-ray there is a large gastric bubble. There is also small bilateral pleural. Effusions. She has underlying cardiomegaly. Sternum stable clean and intact. The HENRI drain in the sternal wound is still in place. Her blood gases from today showed a pH of 7.37 with a pCO2 of 57 and pO2 of 102. Patient continues to be edematous in the upper and lower extremity more so in the legs. The patient is being diuresis with Lasix. The patient is a negative fluid balance of 471 mL over the past 24 hours. The patient is on no pressors. Cardiac rhythm is sinus rhythm. On 12/28/2017 the patient is being seen for a follow-up. The patient is wide awake and alert. She remains on a mechanical ventilator. She is on a assist- control mode of ventilation. The patient has a tracheostomy tube #8 Shiley. The patient is in a rate of 20, tidal volume 400, FiO2 of 35% and a PEEP of 5. Chest x-ray findings are stable. remains distended and tympanic. The patient is an underlying ileus. The tube feeds have been placed on hold. The Dobbhoff is attached to suction. The follow-up abdominal film showed Marked dilation of the small bowel loop and this is consistent with ileus. The patient is currently off tube feeds. Meanwhile, the patient's weaning parameters today at baseline showed a rapid shallow breathing index of 86 with a vital Of 450-480. The patient is not ready for any weaning trials at this point. Meanwhile, we' ll continue supportive care. The patient's wound VAC over the anterior chest has gained approximately 1160 MO's for this current shift. The abdominal wound drainage is quite extensive. It drained approximately 2000 MO's of serosanguineous fluid and over the past 8 hours it drained around 1178 ML's. The patient remains on a combination of antibiotics. The patient is receiving a combination of vancomycin and Merrem. The antibiotic coverage is mainly for sternal wound infection/dehiscence. The wound VAC is been applied to the sternal area. No fever. No leukocytosis and no hypotension. No other complaints otherwise. Hemoglobin is low at 7.0. On 12/29/2017 and I'm seeing this patient for a follow-up. She remains nothing by mouth. Abdomen is less distended compared to yesterday. Dobbhoff is in place. The patient was started on lactulose. She was producing some limited amount of bowel moments which was liquidy. Nevertheless the bowel sounds are very sluggish on today's evaluation. She is in a sitting up position in her bed. She assist-control mode of ventilation and I was able to put on a pressure support of 10 and PEEP of 5 for few hours this morning. Her FiO2 is remains at 35%. She still has a wound VAC over the anterior chest and she also has a drain in her right lower abdominal wall which is draining extensively. The patient remains on the same antibiotic coverage. I came to realize that Merrem was taken off the list accidentally by the computer system and I had to resume the mammogram again in conjunction with vancomycin. The patient will need long-term antibiotic treatment for sternal wound infection. This was again confirmed with infectious disease. The patient's hemoglobin today is at 7.2. The patient has no fever. No chills. No leukocytosis. No altered mentation. His communicating. She is weak and she continues to have some edematous upper and lower extremities. She was started on TPN for nutritional support. General surgeries on the case regarding her abdominal ileus. On 12/30/2017, the patient is awake and alert. She is an assist-control mode of ventilation. She tolerated a 1 hour of pressure support ventilation yesterday following with she became short of breath and tachycardic and this had to be aborted. She remained hemodynamically stable however last night she went into a flutter with rapid ventricular response at the rate of 1:30. She remains on a combination of metoprolol and amiodarone. No chest pain. She is producing adequate amount of urine output. She still has an abdominal ileus. Bowel sounds are hypoactive. She is passing bowel movements and the Dobbhoff still in place. TPN was initiated for nutritional support. The wound VAC is in place. The HENRI drain in the right upper abdomen is also in place. She is afebrile. She is moving all 4 extremities. Still weak yet in good spirits. On 12/31/2017 seeing this patient for a follow-up. Unfortunately her condition is still the same. She remains to have abdominal distention and ileus. The flat film of the abdomen done today showed has filled loops of bowel without evidence of pneumoperitoneum. Dobbhoff is present. The stomach is also distended and the findings are compatible with ileus. The patient was trialed on a trickle feed yesterday however she failed as earlier this morning the patient got nauseated and the feeding had to be stopped this morning. She still burping and she is also passing gas from her rectum. She has distended. Her abdomen is tympanic. Had a lengthy discussion with the general surgeon. Not a candidate for PEG tube insertion and our final recommendation was to remove the Dobbhoff and the site her stomach by irregular NG tube. This will be done at the bedside. Also the patient remains in atrial flutter with rapid ventricular response at the rate of 140. Cardiology was informed. They want to continue the same treatment with increase of the amiodarone dose up to 200 mg by mouth twice a day and the patient is on a combination of Cardizem and metoprolol. She remains hemodynamically stable and she is producing adequate amount of urine output. The wound VAC is in place. The HENRI drain from the right abdominal wound is still active. She is awake and alert. She remains on assist control mode of ventilation. Chest x-ray from today shows no acute abnormalities and the findings are essentially stable. Blood gases showed a pH of 7.44 with a pCO2 of 48 and pO2 of 109. The patient is receiving TPN for nutritional support. Edema in the upper and lower extremities are also improving. Objective - Vital Signs Vital signs: Vital Signs Temp 98.6 F 12/31/17 08:00 Pulse 141 H 12/31/17 10:00 Resp 25 H 12/31/17 10:00 BP 116/54 12/19/17 10:00 Pulse Ox 97 12/31/17 10:00 Intake & Output 12/30/17 12/31/17 12/31/17 18:59 06:59 18:59 Intake Total 2565 831 298 Output Total 1560 1040 815 Balance 1005 -209 -517 Weight 99.8 kg Intake: IV 1004 801 298 Dextrose 5%-0.45% NaCl 1, 30 000 ml @ 10 mls/hr IV . Q24H [facility] Rx#:[id number] Fluconazole in NaCl,Iso- 100 Osm 200 mg In Saline 1 100ml.bag @ 100 mls/hr IVPB DAILY [facility] Rx#: [id number] Meropenem 1 gm In Sodium 100 Chloride 0.9% 100 ml @ 200 mls/hr IVPB Q8HR [facility] Rx#:[id number] Mvi, Adult No.4 with Vit 768 768 256 K 10 ml Trace (Conc-1Ml/ Dose) 1 ml In Foote 3.3%/ Dex 9.8%/Lipid/Lytes 1, 540 ml @ 64 mls/hr IV . Q24H [facility] Rx#:[id number] Pressure Bag 36 33 12 Intake, IV Titration 1551 Amount Mvi, Adult No.4 with Vit 1551 K 10 ml Trace (Conc-1Ml/ Dose) 1 ml In Foote 3.3%/ Dex 9.8%/Lipid/Lytes 1, 540 ml @ 64 mls/hr IV . Q24H [facility] Rx#:[id number] Tube Feeding 10 30 0 Output: Gastric Drainage 400 Drainage 600 690 125 Right Abdomen 600 690 125 Urine 960 350 290 Other: Voiding Method Indwelling Catheter Indwelling Catheter ABP, PAP, CO, CI - Last Documented Arterial Blood Pressure 115/73 Pulmonary Artery Pressure 38/33 Cardiac Output 5.8 Cardiac Index 2.9 - Exam - Constitutional General appearance: Present: cooperative, no acute distress, obese, the patient has a #8 tracheostomy Shiley trach tube in place. She is synchronous with the mechanical ventilator. She is awake and interactive. - Neck Details: Neck is supple, no JVD, no lymphadenopathy. Tracheostomy tube is midline and intact, sutures in place. - Respiratory Details: Lungs sounds essentially diminished throughout. Respirations are symmetrical and nonlabored with mechanical ventilator support. Oxygen saturation are 99% with current ventilator settings. Current ventilator settings is an assist- control: Cycle ventilator - Cardiovascular Details: Pain is tachycardic at regular rate and rhythm seems to be regular. This may be a a flutter with 2 to one block. S1 and S2 present, negative for S3 , gallop or murmur. Chest with open wound, postoperative muscle flap performed. The patient has a one leg applied to the anterior chest Dressing with scant serous drainage. Generalized anasarca with weeping. Vance wraps in place from toes to thighs to bilateral lower extremities. The patient is wound VAC and drained 1290 mL since yesterday and the right abdominal HENRI has drained 1310 mL since yesterday. PICC line is also in place. - Gastrointestinal Gastrointestinal Comment(s): Abdomen is soft, yet this is distended and tympanic. The patient had diminished bowel sounds. No direct tenderness but no rebound tenderness. No guarding. Abdominal wound is dry clean and intact. The patient has a HENRI drain in the lower abdominal wall which is draining quite extensively. The patient's abdomen is tympanic and distended for now consistent with ileus. - Genitourinary Genitourinary Comment(s): Mason catheter for accurate I&O. Draining clear yellow urine. - Integumentary Integumentary Comment(s): Skin is warm and dry. No clubbing or cyanosis. Anasarca with scattered areas of blistering and weeping thin serous drainage. Pressure ulcerations to her buttocks with local wound care. Ulceration to her right wrist area with dressing in place with scant serous drainage. Dressing in place to her chest wound. - Neurologic Neurologic Comment(s): Alert and following verbal commands. Nodding her head yes and no appropriately to questions. Moving all 4 extremities appropriately with weak movements. - Musculoskeletal Musculoskeletal: Present: generalized weakness, strength equal bilaterally - Psychiatric Psychiatric Comment(s): Psychiatric: Present: intact judgment & insight - Labs CBC & Chem 7: 12/31/17 04:30 12/31/17 04:30 Labs: Abnormal Lab Results - Last 24 Hours (Table) 12/30/17 12/30/17 12/30/17 Range/Units 11:37 17:56 23:39 RBC (3.80-5.40) m/uL Hgb (11.4-16.0) gm/dL Hct (34.0-46.0) % MCHC (31.0-37.0) g/dL RDW (11.5-15.5) % ABG pCO2 (35-45) mmHg ABG pO2 (83-108) mmHg ABG HCO3 (21-25) mmol/L ABG Total CO2 (19-24) mmol/L ABG O2 Saturation (94-97) % Sodium (137-145) mmol/L Carbon Dioxide (22-30) mmol/L BUN (7-17) mg/dL Glucose (74-99) mg/dL POC Glucose (mg/dL) 132 H 132 H 119 H (75-99) mg/dL Total Protein (6.3-8.2) g/dL Albumin (3.5-5.0) g/dL 12/31/17 12/31/17 12/31/17 Range/Units 04:30 04:30 04:59 RBC 2.97 L (3.80-5.40) m/uL Hgb 7.9 L (11.4-16.0) gm/dL Hct 26.1 L (34.0-46.0) % MCHC 30.4 L (31.0-37.0) g/dL RDW 19.4 H (11.5-15.5) % ABG pCO2 48 H (35-45) mmHg ABG pO2 109 H (83-108) mmHg ABG HCO3 33 H (21-25) mmol/L ABG Total CO2 34 H (19-24) mmol/L ABG O2 Saturation 98.9 H (94-97) % Sodium 147 H (137-145) mmol/L Carbon Dioxide 32 H (22-30) mmol/L BUN 37 H (7-17) mg/dL Glucose 120 H (74-99) mg/dL POC Glucose (mg/dL) (75-99) mg/dL Total Protein 6.2 L (6.3-8.2) g/dL Albumin 3.1 L (3.5-5.0) g/dL 12/31/17 Range/Units 06:40 RBC (3.80-5.40) m/uL Hgb (11.4-16.0) gm/dL Hct (34.0-46.0) % MCHC (31.0-37.0) g/dL RDW (11.5-15.5) % ABG pCO2 (35-45) mmHg ABG pO2 (83-108) mmHg ABG HCO3 (21-25) mmol/L ABG Total CO2 (19-24) mmol/L ABG O2 Saturation (94-97) % Sodium (137-145) mmol/L Carbon Dioxide (22-30) mmol/L BUN (7-17) mg/dL Glucose (74-99) mg/dL POC Glucose (mg/dL) 133 H (75-99) mg/dL Total Protein (6.3-8.2) g/dL Albumin (3.5-5.0) g/dL Assessment and Plan Plan: Assessment 1 coronary artery bypass surgery with single-vessel bypass and mitral valve replacement/bioprosthetic valve. The patient is postop day #36 2 sternal wound infection with Serratia marcescens with subsequent dehiscence. The patient underwent wound debridement with subsequent muscle flap and the patient is postop day #10. The patient remains on a combination of Merrem and vancomycin. The wound VAC is still in place 3 prolonged ventilator dependent respiratory failure, status post tracheostomy tube insertion and the patient is postop day #7. Patient remains on assist control mode of ventilation . Weaning parameters that point the patient is not ready for further weaning at this point. A short trial a pressure support ventilation was done yesterday. 4 acute on chronic respiratory failure, multifactorial. The patient's sternal wound and the muscle flap is healing for now. She is weak and she is not ready for further weaning based on her daily parameters. Doubt superimposed pneumonia at this point 5 increased edema both upper and lower extremities, improving 6 paroxysmal atrial fibrillation current rhythm tachycardic and the patient remains in a flutter/A. fib rhythm. 7 peripheral vascular disease 8 left subclavian artery stenosis status post insertion of an endovascular stent 9 anemia, a expected outcome of prolonged ICU stay and multiple surgeries 10 ileus, abdominal distention with increased emesis. Not a candidate for PEG tube insertion. The Dobbhoff will be removed and this will be replaced with a regular NG tube for dictation of the stomach and the bowel. 11 left lung collapse status post bronchoscopy and therapeutic it was suctioning. Patient has Rachana within the sputum currently on Diflucan 12 hypertension 13 hyperlipidemia 14 anemia multifactorial with a hemoglobin level of 7.9 PLAN Continue antibiotics. Remove the Dobbhoff. The patient an NG. With NG to suction. Monitor the abdominal distention and ileus. Continue Reglan. Keep nothing by mouth. TPN for nutritional support. Consult cardiology regarding the A. fib/flutter. We'll continue to follow. Continue on mechanical ventilator not ready to wean yet. Monitor the drainage from the wound VAC in the abdominal wounds. We'll continue to follow. Condition remains critical. His care evaluation in 35 minutes including discussions done with the family and the various other consultants. Time with Patient: Greater than 30
--- NOTE | 2017-12-31 11:43 | XR ---
EXAMINATION TYPE: XR chest 1V portable DATE OF EXAM: 12/31/2017 CLINICAL HISTORY: NG tube placement. TECHNIQUE: Single AP portable upright view of the chest is obtained. COMPARISON: Chest x-ray from earlier today and older studies. FINDINGS: There is new nasogastric tube coiled in stomach with tip projecting towards pylorus. Tracheostomy tube and left-sided PICC line are redemonstrated. Overlying maya are again seen. Ther e is persistent cardiomegaly with metallic cardiac valve and metallic closure device redemonstrated. There is suspected small left pleural effusion and associated left basilar atelectasis and/or infiltr ate. Right lung is clear. Osseous structures are intact. There is atherosclerotic change in the aorti c knob with metallic stent graft likely in left subclavian artery redemonstrated. IMPRESSION: New orogastric tube has tip within distal stomach. Other findings stable as there is card iomegaly with tiny left pleural effusion and left basilar atelectasis and/or infiltrate all redemonst rated.
[2017-12-31 12:00] LABS: Glucose,Whole Blood 123 mg/dL (75-99)
[2017-12-31] MEDS ORDERED: PROPOFOL 10 MG/ML 100 ML VIAL IV ONE (12:09)
--- NOTE | 2017-12-31 12:58 | PN ---
PROGRESS NOTE Maritza is a 67-year-old lady who is admitted to hospital for coronary artery disease for bypass surgery and mitral valve replacement. Had a fairly prolonged and complex postop recovery, complicated by respiratory failure, status post tracheostomy, sternal wound dehiscence, status post closure, episodes of atrial fibrillation. Currently, she is in A. Fib with poorly controlled ventricular rate. Blood pressure is normal. She has had abdominal distention and an NG tube is in place. She is otherwise doing well. On exam, heart rate is in the 140s per minute. Blood pressure is 115/73, respiratory rate is 18. Chest exam reveals diminished air entry at the bases. Heart exam reveals first and second heart sounds, irregular rhythm. Abdomen is distended. Examination of extremities reveal 1+ edema. Peripheral pulses are felt. The patient is on Lopressor 75 b.i.d., Cardizem 30 q.8 which I am increasing to 60 q.8, amiodarone 200 b.i.d. She is not on an anticoagulant per Surgery. ASSESSMENT: 1. Coronary artery disease, status post coronary artery bypass grafting. 2. Mitral regurgitation, status post mitral valve replacement. 3. Atrial fibrillation with poorly controlled ventricular rate. PLAN: Will increase the dose of Cardizem. The patient's prognosis remains guarded. MMODL / IJN: [id number] /
--- NOTE | 2017-12-31 13:16 | P.PN ---
<NatalioLuciWindy M - Last Filed: 12/31/17 13:02> Subjective Progress Note Date: 12/31/17 67-year-old female seen and examined in the intensive care unit. Patient is postop day 36 mitral valve replacement coronary artery bypass grafting 1 who has had a prolonged mechanical ventilation secondary to hemodynamic instability. Patient did develop a sternal incision dehiscent. Patients being seen by surgical service at the request of the attending for postop ileus. Patient had a dobbhof placed trickle tube feed were started on the this was not tolerated. The deep cough has been removed this morning and a nasal gastric tube inserted. TPN is infusing. Abdomen distended. Patient reportedly has been burping and passing gas from the rectum. Patient was felt not to be a candidate for PEG tube insertion at this time has a wound VAC in place and a HENRI drain in the right abdominal wall. Patient is awake and alert sitting up in the bed daughter at bedside Objective - Vital Signs Vital signs: Vital Signs Temp 98.8 F 12/31/17 12:00 Pulse 144 H 12/31/17 13:00 Resp 18 12/31/17 13:00 BP 116/54 12/19/17 10:00 Pulse Ox 96 12/31/17 13:00 Intake & Output 12/30/17 12/31/17 12/31/17 18:59 06:59 18:59 Intake Total 2565 831 452 Output Total 1560 1040 1750 Balance 1005 209 1298 Weight 99.8 kg 99.8 kg Intake: IV 1004 801 452 Dextrose 5%-0.45% NaCl 1, 50 000 ml @ 10 mls/hr IV . Q24H [facility] Rx#:[id number] Fluconazole in NaCl,Iso- 100 Osm 200 mg In Saline 1 100ml.bag @ 100 mls/hr IVPB DAILY [facility] Rx#: [id number] Meropenem 1 gm In Sodium 100 Chloride 0.9% 100 ml @ 200 mls/hr IVPB Q8HR [facility] Rx#:[id number] Mvi, Adult No.4 with Vit 768 768 384 K 10 ml Trace (Conc-1Ml/ Dose) 1 ml In Foote 3.3%/ Dex 9.8%/Lipid/Lytes 1, 540 ml @ 64 mls/hr IV . Q24H [facility] Rx#:[id number] Pressure Bag 36 33 18 Intake, IV Titration 1551 Amount Mvi, Adult No.4 with Vit 1551 K 10 ml Trace (Conc-1Ml/ Dose) 1 ml In Foote 3.3%/ Dex 9.8%/Lipid/Lytes 1, 540 ml @ 64 mls/hr IV . Q24H [facility] Rx#:[id number] Tube Feeding 10 30 0 Output: Gastric Drainage 950 Drainage 600 690 245 Right Abdomen 600 690 245 Urine 960 350 555 Other: Voiding Method Indwelling Catheter Indwelling Catheter Indwelling Catheter ABP, PAP, CO, CI - Last Documented Arterial Blood Pressure 95/63 Pulmonary Artery Pressure 38/33 Cardiac Output 5.8 Cardiac Index 2.9 - Exam Physical exam 67-year-old female seen in the intensive care unit trached on vent support awake and alert Lungs decreased at the bases upper airways clear trach in place on mechanical vent support Heart S1-S2 audible irregular Abdomen distended firm HENRI drain in place right lower abdomen extensive amount of serous drainage wound VAC in place nasogastric tube to suction few hypoactive bowel tones indwelling Mason catheter in place. Hypoactive bowel tones Extremities plus edema to the lower extremities - Labs CBC & Chem 7: 12/31/17 04:30 12/31/17 04:30 Labs: Abnormal Lab Results - Last 24 Hours (Table) 12/30/17 12/30/17 12/31/17 Range/Units 17:56 23:39 04:30 RBC 2.97 L (3.80-5.40) m/uL Hgb 7.9 L (11.4-16.0) gm/dL Hct 26.1 L (34.0-46.0) % MCHC 30.4 L (31.0-37.0) g/dL RDW 19.4 H (11.5-15.5) % ABG pCO2 (35-45) mmHg ABG pO2 (83-108) mmHg ABG HCO3 (21-25) mmol/L ABG Total CO2 (19-24) mmol/L ABG O2 Saturation (94-97) % Sodium (137-145) mmol/L Carbon Dioxide (22-30) mmol/L BUN (7-17) mg/dL Glucose (74-99) mg/dL POC Glucose (mg/dL) 132 H 119 H (75-99) mg/dL Total Protein (6.3-8.2) g/dL Albumin (3.5-5.0) g/dL 12/31/17 12/31/17 12/31/17 Range/Units 04:30 04:59 06:40 RBC (3.80-5.40) m/uL Hgb (11.4-16.0) gm/dL Hct (34.0-46.0) % MCHC (31.0-37.0) g/dL RDW (11.5-15.5) % ABG pCO2 48 H (35-45) mmHg ABG pO2 109 H (83-108) mmHg ABG HCO3 33 H (21-25) mmol/L ABG Total CO2 34 H (19-24) mmol/L ABG O2 Saturation 98.9 H (94-97) % Sodium 147 H (137-145) mmol/L Carbon Dioxide 32 H (22-30) mmol/L BUN 37 H (7-17) mg/dL Glucose 120 H (74-99) mg/dL POC Glucose (mg/dL) 133 H (75-99) mg/dL Total Protein 6.2 L (6.3-8.2) g/dL Albumin 3.1 L (3.5-5.0) g/dL 12/31/17 Range/Units 11:58 RBC (3.80-5.40) m/uL Hgb (11.4-16.0) gm/dL Hct (34.0-46.0) % MCHC (31.0-37.0) g/dL RDW (11.5-15.5) % ABG pCO2 (35-45) mmHg ABG pO2 (83-108) mmHg ABG HCO3 (21-25) mmol/L ABG Total CO2 (19-24) mmol/L ABG O2 Saturation (94-97) % Sodium (137-145) mmol/L Carbon Dioxide (22-30) mmol/L BUN (7-17) mg/dL Glucose (74-99) mg/dL POC Glucose (mg/dL) 123 H (75-99) mg/dL Total Protein (6.3-8.2) g/dL Albumin (3.5-5.0) g/dL Assessment and Plan Assessment: Impression X-ray likely suggests ileus Postop coronary artery bypass complicated medical course postoperatively PEG tube held secondary to abdominal wall edema and recent right upper quadrant muscle flap exposure Sternal wound dehiscence with wound VAC in place Abdominal x-rays on the show distention small bowel: Abdominal x-ray done on the show evidence filled loops of bowel with no evidence of pneumoperitoneum consistent with an ileus Plan Continue ICU management per the academic hospitalist Daily Dulcolax suppositories Continue with PT OT attempt to increase activity as able Continue bowel stimulant program TPN for nutritional support dobbhoff tube removed this morning with nasal gastric tube inserted Monitor response Dictating a progress note for Dr. small rounding on behalf of Dr. Lofton The above impression and plan of care have been discussed and directed by signing physician. Windy Lance nurse practitioner acting as scribe for signing physician. <Bernardo Small - Last Filed: 12/31/17 15:42> Objective - Vital Signs Vital signs: Vital Signs Temp 98.8 F 12/31/17 12:00 Pulse 147 H 12/31/17 15:40 Resp 22 12/31/17 15:00 BP 116/54 12/19/17 10:00 Pulse Ox 96 12/31/17 15:00 Intake & Output 12/30/17 12/31/17 12/31/17 18:59 06:59 18:59 Intake Total 2565 831 2234 Output Total 1560 1040 2125 Balance 1005 -209 109 Weight 99.8 kg 99.8 kg 99.8 kg Intake: IV 1004 801 683 Dextrose 5%-0.45% NaCl 1, 80 000 ml @ 10 mls/hr IV . Q24H [facility] Rx#:[id number] Fluconazole in NaCl,Iso- 100 Osm 200 mg In Saline 1 100ml.bag @ 100 mls/hr IVPB DAILY [facility] Rx#: [id number] Meropenem 1 gm In Sodium 100 Chloride 0.9% 100 ml @ 200 mls/hr IVPB Q8HR [facility] Rx#:[id number] Mvi, Adult No.4 with Vit 768 768 576 K 10 ml Trace (Conc-1Ml/ Dose) 1 ml In Foote 3.3%/ Dex 9.8%/Lipid/Lytes 1, 540 ml @ 64 mls/hr IV . Q24H [facility] Rx#:[id number] Pressure Bag 36 33 27 Intake, IV Titration 1551 1551 Amount Mvi, Adult No.4 with Vit 1551 1551 K 10 ml Trace (Conc-1Ml/ Dose) 1 ml In Foote 3.3%/ Dex 9.8%/Lipid/Lytes 1, 540 ml @ 64 mls/hr IV . Q24H [facility] Rx#:[id number] Tube Feeding 10 30 0 Output: Gastric Drainage 950 Drainage 600 690 470 Medial Chest Incision - 100 Woundvac Right Abdomen 600 690 370 Urine 960 350 705 Other: Voiding Method Indwelling Catheter Indwelling Catheter Indwelling Catheter ABP, PAP, CO, CI - Last Documented Arterial Blood Pressure 114/70 Pulmonary Artery Pressure 38/33 Cardiac Output 5.8 Cardiac Index 2.9 - Labs CBC & Chem 7: 12/31/17 04:30 12/31/17 04:30 Labs: Abnormal Lab Results - Last 24 Hours (Table) 12/30/17 12/30/17 12/31/17 Range/Units 17:56 23:39 04:30 RBC 2.97 L (3.80-5.40) m/uL Hgb 7.9 L (11.4-16.0) gm/dL Hct 26.1 L (34.0-46.0) % MCHC 30.4 L (31.0-37.0) g/dL RDW 19.4 H (11.5-15.5) % ABG pCO2 (35-45) mmHg ABG pO2 (83-108) mmHg ABG HCO3 (21-25) mmol/L ABG Total CO2 (19-24) mmol/L ABG O2 Saturation (94-97) % Sodium (137-145) mmol/L Carbon Dioxide (22-30) mmol/L BUN (7-17) mg/dL Glucose (74-99) mg/dL POC Glucose (mg/dL) 132 H 119 H (75-99) mg/dL Total Protein (6.3-8.2) g/dL Albumin (3.5-5.0) g/dL 12/31/17 12/31/17 12/31/17 Range/Units 04:30 04:59 06:40 RBC (3.80-5.40) m/uL Hgb (11.4-16.0) gm/dL Hct (34.0-46.0) % MCHC (31.0-37.0) g/dL RDW (11.5-15.5) % ABG pCO2 48 H (35-45) mmHg ABG pO2 109 H (83-108) mmHg ABG HCO3 33 H (21-25) mmol/L ABG Total CO2 34 H (19-24) mmol/L ABG O2 Saturation 98.9 H (94-97) % Sodium 147 H (137-145) mmol/L Carbon Dioxide 32 H (22-30) mmol/L BUN 37 H (7-17) mg/dL Glucose 120 H (74-99) mg/dL POC Glucose (mg/dL) 133 H (75-99) mg/dL Total Protein 6.2 L (6.3-8.2) g/dL Albumin 3.1 L (3.5-5.0) g/dL 12/31/17 Range/Units 11:58 RBC (3.80-5.40) m/uL Hgb (11.4-16.0) gm/dL Hct (34.0-46.0) % MCHC (31.0-37.0) g/dL RDW (11.5-15.5) % ABG pCO2 (35-45) mmHg ABG pO2 (83-108) mmHg ABG HCO3 (21-25) mmol/L ABG Total CO2 (19-24) mmol/L ABG O2 Saturation (94-97) % Sodium (137-145) mmol/L Carbon Dioxide (22-30) mmol/L BUN (7-17) mg/dL Glucose (74-99) mg/dL POC Glucose (mg/dL) 123 H (75-99) mg/dL Total Protein (6.3-8.2) g/dL Albumin (3.5-5.0) g/dL Assessment and Plan Plan: Severe ileus. Patient will be medically managed. She will continue NG tube to low intermittent suction. Once her ileus is resolved at her bowel function has improved we can consider PEG tube placement at that time.
[2017-12-31] MEDS: MVI, ADULT NO.4 WITH VIT K 10 ML, TRACE (CONC-1ML/DOSE) 1 ML in AMIN 3.3%/DEX 9.8%/LIPI... IV SCH ×3 (13:28)
[2017-12-31] MEDS: DILTIAZEM ORAL 60 MG TAB PO SCH ×2 (13:29→22:49)
[2017-12-31 18:14] LABS: Glucose,Whole Blood 118 mg/dL (75-99)
[2017-12-31] MEDS: METOPROLOL TARTRATE 5 MG/5 ML VIAL IVP SCH (19:53)
[2017-12-31] MEDS: SODIUM CHLORIDE 0.9% 1,000 ML IV SCH (19:53)
[2017-12-31] MEDS: ESCITALOPRAM 10 MG TAB PO SCH (20:22)
[2017-12-31] MEDS: SENNOSIDES-DOCUSATE SODIUM 1 EACH TAB PO SCH (20:29)
--- NOTE | 2017-12-31 20:34 | P.PN ---
Subjective Progress Note Date: 12/31/17 Progress note being dictated for Dr. Lugo Interval history: This is 67-year-old female status post CABG, mitral valve replacement, status post multiple blood products transfusions. Remains vent dependent on 40% FiO2/+5 of PEEP. Chest x-ray reporting fluid overload, improvement in volume status, aeration.Maintained on norepinephrine, Primacor, dopamine and insulin drip. Cardiac index 2.7. Telemetry atrial flutter/sinus tach. Tube feeding initiated via OG tube. Hemoglobin 7.3, Platelets decreased to 64 today, maintained on low-dose aspirin. Review systems unable to obtain as patient sedated and on mechanical ventilation. Active Medications Albuterol/Ipratropium (Duoneb 0.5 Mg-3 Mg/3 Ml Soln) 3 ml INHALATION RT-Q4H [facility] [place] Last Admin: 11/29/17 15:17 Dose: 3 ml Albuterol/Ipratropium (Duoneb 0.5 Mg-3 Mg/3 Ml Soln) 3 ml INHALATION RT-Q2H PRN PRN Reason: Shortness Of Breath Or Wheezing Amiodarone HCl (Cordarone) 200 mg PO BID [facility] [place] Aspirin (Aspirin) 81 mg PO DAILY [facility] [place] Last Admin: 11/29/17 08:54 Dose: 81 mg Atorvastatin Calcium (Lipitor) 40 mg PO DAILY [facility] [place] Last Admin: 11/29/17 08:54 Dose: 40 mg Benzocaine/Menthol (Cepacol Lozenge) 1 each MUCOUS MEM Q2H PRN PRN Reason: Sore Throat Bisacodyl (Dulcolax) 10 mg RECTAL DAILY PRN PRN Reason: Constipation Chlorhexidine Gluconate (Peridex) 15 ml MUCOUS MEM BID [facility] [place] Last Admin: 11/29/17 08:48 Dose: 15 ml Furosemide (Lasix) 40 mg IV ONCE ONE Stop: 11/29/17 20:01 Propofol 1,000 mg/ IV Solution 100 mls @ 0 mls/hr IV .Q0M CARLEE; Titrate PRN Reason: Protocol Last Admin: 11/29/17 17:54 Dose: 26.13 mcg/kg/min, 17.2 mls/hr Norepinephrine Bitartrate (Levophed-0.9% Nacl 16 Mg/250ml Pmx) 16 mg in 250 mls @ 0 mls/hr IV .Q0M CARLEE; Titrate PRN Reason: Protocol Last Admin: 11/29/17 17:54 Dose: 2 mcg/min, 1.875 mls/hr Sodium Chloride (Saline 0.45%) 1,000 mls @ 30 mls/hr IV .Q24H [facility] [place] Last Admin: 11/29/17 10:28 Dose: Not Given Milrinone Lactate/Dextrose 20 (mg/ IV Solution) 100 mls @ 6.58 mls/hr IV .[id number] [facility] [place] PRN Reason: 0.2 MCG/KG/MIN Last Admin: 11/29/17 15:38 Dose: 0.2 mcg/kg/min, 6.58 mls/hr Insulin Aspart (Novolog) 0 unit SQ Q6HR [facility] [place] PRN Reason: Protocol Last Admin: 11/29/17 12:36 Dose: Not Given Magnesium Hydroxide (Milk Of Magnesia) 2,400 mg PO BID PRN PRN Reason: Constipation Metoprolol Tartrate (Lopressor) 12.5 mg PO BID [facility] [place] Last Admin: 11/29/17 08:55 Dose: 12.5 mg Miscellaneous Information (Magnesium Per Protocol) 1 each MISCELLANE DAILY PRN ; Protocol PRN Reason: Per Protocol Miscellaneous Information (Phosphorus Per Protocol) 1 each MISCELLANE DAILY PRN ; Protocol PRN Reason: Per Protocol Miscellaneous Information (Potassium Per Protocol) 1 each MISCELLANE DAILY PRN ; Protocol PRN Reason: Per Protocol Miscellaneous Information (Potassium Per Protocol) 1 each MISCELLANE DAILY PRN ; Protocol PRN Reason: Per Protocol Morphine Sulfate (Morphine Oral Dana 2mg/Ml) 6 mg PO Q2H PRN PRN Reason: Severe Pain Ondansetron HCl (Zofran) 4 mg IVP Q6HR PRN PRN Reason: Nausea And Vomiting Pantoprazole Sodium (Protonix) 40 mg IVP DAILY [facility] [place] Last Admin: 11/29/17 08:55 Dose: 40 mg Senna/Docusate Sodium (Senokot-S) 2 each PO HS [facility] [place] Last Admin: 11/28/17 20:41 Dose: 2 each Sodium Chloride (Saline Flush) 10 ml IV BID [facility] [place] Last Admin: 11/29/17 08:56 Dose: 10 ml 11/30/2017 Chest x-ray reporting increased congestion, received additional Lasix. extubated this morning, currently maintained on BiPAP. Norepinephrine weaned off this morning. Maintained on Primacor, cardiac index 2.6. Received 1 dose of Lasix IV push. Renal function improving. Hemoglobin 7, platelets increased to 74. Atrial flutter per telemetry. Review systems unable to obtain as patient BiPAP dependent. Active Medications Generic Name Dose Route Start Last Admin Trade Name Freq PRN Reason Stop Dose Admin Albuterol/Ipratropium 3 ml 11/25/17 20:00 11/30/17 15:23 Duoneb 0.5 Mg-3 Mg/3 Ml Soln INHALATION 3 ml RT-Q4H [facility]E Administration Albuterol/Ipratropium 3 ml 11/26/17 17:53 Duoneb 0.5 Mg-3 Mg/3 Ml Soln INHALATION RT-Q2H PRN Shortness Of Breath Or Wheezing Amiodarone HCl 200 mg 11/29/17 21:00 11/30/17 08:14 Cordarone PO 200 mg BID [facility]E Administration Aspirin 81 mg 11/26/17 10:15 11/30/17 08:15 Aspirin PO 81 mg DAILY [facility] Administration Atorvastatin Calcium 40 mg 11/26/17 09:00 11/30/17 08:14 Lipitor PO 40 mg DAILY [facility] Administration Benzocaine/Menthol 1 each 11/25/17 19:03 Cepacol Lozenge MUCOUS MEM Q2H PRN Sore Throat Bisacodyl 10 mg 11/26/17 17:52 Dulcolax RECTAL DAILY PRN Constipation Fondaparinux 2.5 mg 11/30/17 11:30 11/30/17 13:23 Arixtra SQ 2.5 mg DAILY [facility] Administration Norepinephrine Bitartrate 16 mg in 250 mls @ 0 mls/hr 11/26/17 04:15 11:58 Levophed-0.9% Nacl 16 Mg/250ml Pmx IV 0 mcg/min .Q0M [facility]E 0 mls/hr Protocol Titration Titrate Sodium Chloride 1,000 mls @ 10 mls/hr 11/26/17 10:15 11/30/17 12:51 Saline 0.45% IV Not Given .Q24H [facility] Milrinone Lactate/Dextrose 20 100 mls @ 6.58 mls/hr 11/29/17 15:00 11/30/17 08:16 mg/ IV Solution IV 0.2 mcg/kg/min .[id number] [facility]E 6.58 mls/hr 0.2 MCG/KG/MIN Infusion Insulin Aspart 0 unit 11/29/17 12:00 11/30/17 12:50 Novolog SQ Not Given Q6HR [facility] [place] Protocol Magnesium Hydroxide 2,400 mg 11/26/17 17:53 Milk Of Magnesia PO BID PRN Constipation Metoprolol Tartrate 12.5 mg 11/26/17 09:00 11/30/17 08:15 Lopressor PO 12.5 mg BID [facility]E Administration Miscellaneous Information 1 each 11/25/17 19:03 Magnesium Per Protocol MISCELLANE DAILY PRN Per Protocol Protocol Miscellaneous Information 1 each 11/25/17 19:03 Phosphorus Per Protocol MISCELLANE DAILY PRN Per Protocol Protocol Miscellaneous Information 1 each 11/25/17 19:03 Potassium Per Protocol MISCELLANE DAILY PRN Per Protocol Protocol Miscellaneous Information 1 each 11/29/17 12:01 Potassium Per Protocol MISCELLANE DAILY PRN Per Protocol Protocol Morphine Sulfate 6 mg 11/29/17 13:31 Morphine Oral Dana 2mg/Ml PO Q2H PRN Severe Pain Ondansetron HCl 4 mg 11/25/17 19:03 Zofran IVP Q6HR PRN Nausea And Vomiting Pantoprazole Sodium 40 mg 11/26/17 09:00 11/30/17 08:15 Protonix IVP 40 mg DAILY [facility] Administration Senna/Docusate Sodium 2 each 11/26/17 21:00 11/29/17 20:40 Senokot-S PO 2 each HS [facility]E Administration Sodium Chloride 10 ml 11/25/17 21:00 11/30/17 08:15 Saline Flush IV 10 ml BID [facility]E Administration 12/01/2017 Breathing improving, weaned off of BiPAP and down to 6 L high flow. Wheezing resolved. Chest x-ray reports improvement. Staff reports patient appeared to be choking on pills last night, speech therapy consulted. Receiving one unit of packed RBCs for hemoglobin of 6.7. Mediastinal chest tubes discontinued, left pleural chest tube remains. Maintained on Primacor. Telemetry atrial flutter. Review of systems: CONSTITUTIONAL: No fever, no malaise HEENT: No recent visual problems or hearing problems. Denied any sore throat. CARDIOVASCULAR: No chest pain, no palpitations, no syncope. PULMONARY: Improving shortness of breath, no cough, no hemoptysis. GASTROINTESTINAL: No diarrhea, no nausea, no vomiting, no abdominal pain. Normoactive bowel sounds. NEUROLOGICAL: No headaches, diffuse weakness, no numbness. HEMATOLOGICAL: Denies any bleeding or petechiae. GENITOURINARY: Denies any burning micturition, frequency, or urgency. ENDOCRINE: Denies any polyuria or polydipsia. PSYCHIATRIC: No anxiety, no depression Active Medications Hydrocodone Bitart/Acetaminophen ([place] 5-325) 1 each PO Q4HR PRN PRN Reason: MILD TO MODERATE Pain Last Admin: 12/01/17 22:44 Dose: 1 each Hydrocodone Bitart/Acetaminophen ([place] 5-325) 2 each PO Q4HR PRN PRN Reason: MODERATE TO SEVERE Pain Albuterol/Ipratropium (Duoneb 0.5 Mg-3 Mg/3 Ml Soln) 3 ml INHALATION RT-Q4H [facility] [place] Last Admin: 12/02/17 15:06 Dose: 3 ml Albuterol/Ipratropium (Duoneb 0.5 Mg-3 Mg/3 Ml Soln) 3 ml INHALATION RT-Q2H PRN PRN Reason: Shortness Of Breath Or Wheezing Last Admin: 12/01/17 18:09 Dose: 3 ml Amiodarone HCl (Cordarone) 200 mg PO BID [facility] [place] Last Admin: 12/02/17 08:10 Dose: 200 mg Aspirin (Aspirin) 81 mg PO DAILY [facility] [place] Last Admin: 12/02/17 08:10 Dose: 81 mg Atorvastatin Calcium (Lipitor) 40 mg PO DAILY [facility] [place] Last Admin: 12/02/17 08:10 Dose: 40 mg Benzocaine/Menthol (Cepacol Lozenge) 1 each MUCOUS MEM Q2H PRN PRN Reason: Sore Throat Bisacodyl (Dulcolax) 10 mg RECTAL DAILY PRN PRN Reason: Constipation Budesonide (Pulmicort) 1 mg INHALATION RT-BID [facility] [place] Last Admin: 12/02/17 07:19 Dose: 1 mg Fondaparinux (Arixtra) 2.5 mg SQ DAILY [facility] [place] Last Admin: 12/02/17 08:10 Dose: 2.5 mg Formoterol Fumarate (Perforomist) 20 mcg INHALATION RT-BID [facility] [place] Last Admin: 12/02/17 07:36 Dose: 20 mcg Norepinephrine Bitartrate (Levophed-0.9% Nacl 16 Mg/250ml Pmx) 16 mg in 250 mls @ 0 mls/hr IV .Q0M [facility] [place]; Titrate PRN Reason: Protocol Last Titration: 11/30/17 11:58 Dose: 0 mcg/min, 0 mls/hr Sodium Chloride (Saline 0.45%) 1,000 mls @ 10 mls/hr IV .Q24H [facility] [place] Last Admin: 12/01/17 14:04 Dose: 10 mls/hr Milrinone Lactate/Dextrose 20 (mg/ IV Solution) 100 mls @ 6.58 mls/hr IV .[id number] [facility] [place] PRN Reason: 0.2 MCG/KG/MIN Last Admin: 12/02/17 08:57 Dose: 0.2 mcg/kg/min, 6.58 mls/hr Insulin Aspart (Novolog) 0 unit SQ Q6HR [facility] [place] PRN Reason: Protocol Last Admin: 12/02/17 12:53 Dose: Not Given Magnesium Hydroxide (Milk Of Magnesia) 2,400 mg PO BID PRN PRN Reason: Constipation Methylprednisolone Sodium Succinate (Solu-Medrol) 30 mg IV Q8HR [facility] [place] Last Admin: 12/02/17 08:10 Dose: 30 mg Metoprolol Tartrate (Lopressor) 25 mg PO BID [facility] [place] Last Admin: 12/02/17 08:59 Dose: 25 mg Miscellaneous Information (Magnesium Per Protocol) 1 each MISCELLANE DAILY PRN ; Protocol PRN Reason: Per Protocol Miscellaneous Information (Phosphorus Per Protocol) 1 each MISCELLANE DAILY PRN ; Protocol PRN Reason: Per Protocol Miscellaneous Information (Potassium Per Protocol) 1 each MISCELLANE DAILY PRN ; Protocol PRN Reason: Per Protocol Miscellaneous Information (Potassium Per Protocol) 1 each MISCELLANE DAILY PRN ; Protocol PRN Reason: Per Protocol Ondansetron HCl (Zofran) 4 mg IVP Q6HR PRN PRN Reason: Nausea And Vomiting Pantoprazole Sodium (Protonix) 40 mg IVP DAILY [facility] [place] Last Admin: 12/02/17 08:10 Dose: 40 mg Senna/Docusate Sodium (Senokot-S) 2 each PO HS [facility] [place] Last Admin: 12/01/17 21:55 Dose: 2 each Sodium Chloride (Saline Flush) 10 ml IV BID [facility] Last Admin: 12/02/17 12:51 Dose: 10 ml 12/02/17 Much more alert today. Oxygen weaned further down to 5 L nasal cannula, maintaining O2 sats in the high 90s. Pleural chest tube discontinued. Chest x- ray reporting probable right lower lobe atelectasis/effusion. Underwent modified barium swallow, with recommendations of regular diet, thin liquids, chin tuck, no straw, small bites/sepsis/sips; no impairment with exception of mild transient penetration with thin liquids which patient independently cleared. Yesterday receive 1 unit of packed RBCs with current hemoglobin 8. Weaning of Primacor in progress. 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 Review of systems: CONSTITUTIONAL: No fever, no malaise, no fatigue. HEENT: No recent visual problems or hearing problems. Denied any sore throat. CARDIOVASCULAR: No chest pain, no palpitations, no syncope. PULMONARY: Minimal shortness of breath, no cough, no hemoptysis. GASTROINTESTINAL: No diarrhea, no nausea, no vomiting, no abdominal pain. Normoactive bowel sounds. NEUROLOGICAL: No headaches, no weakness, no numbness. HEMATOLOGICAL: Denies any bleeding or petechiae. GENITOURINARY: Denies any burning micturition, frequency, or urgency. MUSCULOSKELETAL/RHEUMATOLOGICAL: Denies any joint pain, swelling, or any muscle pain. ENDOCRINE: Denies any polyuria or polydipsia. PSYCHIATRIC: No anxiety, no depression The rest of the 14 point review of systems is negative Active Medications Generic Name Dose Route Start Last Admin Trade Name Freq PRN Reason Stop Dose Admin Hydrocodone Bitart/Acetaminophen 1 each 12/01/17 12:20 12/01/17 22:44 [place] 5-325 PO 1 each Q4HR PRN Administration MILD TO MODERATE Pain Hydrocodone Bitart/Acetaminophen 2 each 12/01/17 12:20 [place] 5-325 PO Q4HR PRN MODERATE TO SEVERE Pain Albuterol/Ipratropium 3 ml 11/25/17 20:00 12/02/17 15:06 Duoneb 0.5 Mg-3 Mg/3 Ml Soln INHALATION 3 ml RT-Q4H [facility]E Administration Albuterol/Ipratropium 3 ml 11/26/17 17:53 12/01/17 18:09 Duoneb 0.5 Mg-3 Mg/3 Ml Soln INHALATION 3 ml RT-Q2H PRN Administration Shortness Of Breath Or Wheezing Amiodarone HCl 200 mg 11/29/17 21:00 12/02/17 08:10 Cordarone PO 200 mg BID [facility]E Administration Aspirin 81 mg 11/26/17 10:15 12/02/17 08:10 Aspirin PO 81 mg DAILY [facility] Administration Atorvastatin Calcium 40 mg 11/26/17 09:00 12/02/17 08:10 Lipitor PO 40 mg DAILY [facility] Administration Benzocaine/Menthol 1 each 11/25/17 19:03 Cepacol Lozenge MUCOUS MEM Q2H PRN Sore Throat Bisacodyl 10 mg 11/26/17 17:52 Dulcolax RECTAL DAILY PRN Constipation Budesonide 1 mg 12/01/17 20:00 12/02/17 07:19 Pulmicort INHALATION 1 mg RT-BID [facility]E Administration Fondaparinux 2.5 mg 11/30/17 11:30 12/02/17 08:10 Arixtra SQ 2.5 mg DAILY [facility] Administration Formoterol Fumarate 20 mcg 12/01/17 20:00 12/02/17 07:36 Perforomist INHALATION 20 mcg RT-BID [facility]E Administration Norepinephrine Bitartrate 16 mg in 250 mls @ 0 mls/hr 11/26/17 04:15 11:58 Levophed-0.9% Nacl 16 Mg/250ml Pmx IV 0 mcg/min .Q0M CARLEE 0 mls/hr Protocol Titration Titrate Sodium Chloride 1,000 mls @ 10 mls/hr 11/26/17 10:15 12/02/17 15:41 Saline 0.45% IV Not Given .Q24H [facility] Milrinone Lactate/Dextrose 20 100 mls @ 6.58 mls/hr 11/29/17 15:00 12/02/17 08:57 mg/ IV Solution IV 0.2 mcg/kg/min .[id number] CAR[facility]E 6.58 mls/hr 0.2 MCG/KG/MIN Administration Insulin Aspart 0 unit 11/29/17 12:00 12/02/17 12:53 Novolog SQ Not Given Q6HR [facility] [place] Protocol Magnesium Hydroxide 2,400 mg 11/26/17 17:53 Milk Of Magnesia PO BID PRN Constipation Methylprednisolone Sodium Succinate 30 mg 12/01/17 16:00 12/02/17 08:10 Solu-Medrol IV 30 mg Q8HR [facility] Administration Metoprolol Tartrate 25 mg 12/02/17 09:00 12/02/17 08:59 Lopressor PO 25 mg BID [facility]E Administration Miscellaneous Information 1 each 11/25/17 19:03 Magnesium Per Protocol MISCELLANE DAILY PRN Per Protocol Protocol Miscellaneous Information 1 each 11/25/17 19:03 Phosphorus Per Protocol MISCELLANE DAILY PRN Per Protocol Protocol Miscellaneous Information 1 each 11/25/17 19:03 Potassium Per Protocol MISCELLANE DAILY PRN Per Protocol Protocol Miscellaneous Information 1 each 11/29/17 12:01 Potassium Per Protocol MISCELLANE DAILY PRN Per Protocol Protocol Ondansetron HCl 4 mg 11/25/17 19:03 Zofran IVP Q6HR PRN Nausea And Vomiting Pantoprazole Sodium 40 mg 11/26/17 09:00 12/02/17 08:10 Protonix IVP 40 mg DAILY [facility] Administration Senna/Docusate Sodium 2 each 11/26/17 21:00 12/01/17 21:55 Senokot-S PO 2 each HS [facility] Administration Sodium Chloride 10 ml 11/25/17 21:00 12/02/17 12:51 Saline Flush IV 10 ml BID [facility] Administration 12/03/17 maintained on nebulized bronchodilators, steroids,patient tachypneic, requiring BiPap throughout today off and on. Chest x-ray suggestive of fluid overload. Received additional Lasix. Maintained on oral amiodarone, remains in a-flutter. Overdrive atrial pacing attempted unsuccessfully. Digoxin 2 ordered. Pacer wires discontinued today. Stool at bedside with PT OT, remains extremely weak. Primacor weaned off yesterday. 2017 currently in atrial fibrillation with heart rates up into the 150s, scheduled for cardioversion tomorrow. INR 2.2. Patient currently wearing BiPAP ,has required on and off all day. Chest ultrasound reporting bilateral pleural effusions, larger on the right. Thoracentesis on hold, awaiting cardioversion.Chest x-ray reporting prominent interstitium and central vascularity, increased bibasilar density. Attempting diuresing with Lasix and Zaroxolyn. Review systems unable to obtain as patient currently on BiPAP. Active Medications Hydrocodone Bitart/Acetaminophen ([place] 5-325) 1 each PO Q4HR PRN PRN Reason: MILD TO MODERATE Pain Last Admin: 12/07/17 10:48 Dose: 1 each Hydrocodone Bitart/Acetaminophen ([place] 5-325) 2 each PO Q4HR PRN PRN Reason: MODERATE TO SEVERE Pain Last Admin: 12/07/17 16:39 Dose: 2 each Albuterol/Ipratropium (Duoneb 0.5 Mg-3 Mg/3 Ml Soln) 3 ml INHALATION RT-Q2H PRN PRN Reason: Shortness Of Breath Or Wheezing Last Admin: 12/01/17 18:09 Dose: 3 ml Albuterol/Ipratropium (Duoneb 0.5 Mg-3 Mg/3 Ml Soln) 3 ml INHALATION RT-QID [facility] [place] Last Admin: 12/07/17 16:43 Dose: 3 ml Amiodarone HCl (Cordarone) 200 mg PO BID [facility] [place] Aspirin (Aspirin) 81 mg PO DAILY [facility] [place] Last Admin: 12/07/17 08:53 Dose: 81 mg Atorvastatin Calcium (Lipitor) 40 mg PO DAILY [facility] [place] Last Admin: 12/07/17 08:53 Dose: 40 mg Benzocaine/Menthol (Cepacol Lozenge) 1 each MUCOUS MEM Q2H PRN PRN Reason: Sore Throat Bisacodyl (Dulcolax) 10 mg RECTAL DAILY PRN PRN Reason: Constipation Budesonide (Pulmicort) 1 mg INHALATION RT-BID [facility] [place] Last Admin: 12/07/17 08:36 Dose: 1 mg Escitalopram Oxalate (Lexapro) 10 mg PO HS [facility] [place] Furosemide (Lasix) 40 mg IV Q12HR [facility] [place] Last Admin: 12/07/17 08:33 Dose: 40 mg Piperacillin/Tazobactam/ (Dextrose 3.375 gm/ IV Solution) 50 mls @ 12.5 mls/hr IVPB Q8HR [facility] [place] Last Admin: 12/07/17 16:39 Dose: 12.5 mls/hr Sodium Chloride (Saline 0.9%) 1,000 mls @ 20 mls/hr IV .Q24H [facility] [place] Last Admin: 12/07/17 13:00 Dose: 20 mls/hr Lactated Ringer's (Lactated Ringers) 1,000 mls @ 20 mls/hr IV .Q24H [facility] [place] Last Admin: 12/06/17 20:45 Dose: 20 mls/hr Insulin Aspart (Novolog) 0 unit SQ ACHS [facility] [place] PRN Reason: Protocol Last Admin: 12/07/17 13:01 Dose: 2 unit Magnesium Hydroxide (Milk Of Magnesia) 2,400 mg PO BID PRN PRN Reason: Constipation Methylprednisolone Sodium Succinate (Solu-Medrol) 30 mg IV Q8HR [facility] [place] Last Admin: 12/07/17 16:39 Dose: 30 mg Metolazone (Zaroxolyn) 5 mg PO DAILY [facility] [place] Last Admin: 12/07/17 08:53 Dose: 5 mg Metoprolol Tartrate (Lopressor) 50 mg PO BID [facility] [place] Last Admin: 12/07/17 08:53 Dose: 50 mg Miscellaneous Information (Magnesium Per Protocol) 1 each MISCELLANE DAILY PRN ; Protocol PRN Reason: Per Protocol Miscellaneous Information (Phosphorus Per Protocol) 1 each MISCELLANE DAILY PRN ; Protocol PRN Reason: Per Protocol Miscellaneous Information (Potassium Per Protocol) 1 each MISCELLANE DAILY PRN ; Protocol PRN Reason: Per Protocol Ondansetron HCl (Zofran) 4 mg IVP Q6HR PRN PRN Reason: Nausea And Vomiting Pantoprazole Sodium (Protonix) 40 mg PO [id number] [facility] [place] Last Admin: 12/07/17 08:53 Dose: 40 mg Senna/Docusate Sodium (Senokot-S) 2 each PO HS [facility] [place] Last Admin: 12/06/17 20:29 Dose: 2 each Sodium Chloride (Saline Flush) 10 ml IV BID [facility] [place] Last Admin: 12/07/17 10:48 Dose: 10 ml 12/07/2017 Underwent successful cardioversion this morning,360J X1, remains in sinus rhythm. Currently wearing BiPAP. Nonproductive cough. Diuresing well on Lasix and Zaroxolyn with 24-hour I&O reflecting a negative fluid balance. Chest x-ray reporting stable bilateral areas of infiltrate and pleural effusions , possible CHF, possible pneumonia. INR 3.8, afebrile, WBC 17. Maintained on Zosyn. Sternal wound drainage, cultures sent. 12/08/2017 Cardioverted yesterday, remains in sinus rhythm .continues requiring BiPAP for majority of morning. Echo reporting-limited study for assessment of pericardial effusion, small generalized pericardial effusion, low normal LV function, EF 50-55%. Chest CT reporting sternal dehiscence, moderate to large pericardial effusion, possible mass effect onto the left ventricle, no significant right atrial dilatation to clearly indicate tamponade, moderate left pleural effusion with adjacent complete left lower lobar and inferior lingular collapse, small right pleural effusion, right basilar subsegmental atelectasis. Chest x-ray noted. Blood sugars controlled. INR 4.8, received vitamin K this morning. Diuresing well on Lasix IV push, Zaroxolyn. 24-hour I& O reflecting a negative fluid balance, decreased weight. Midsternal incision open, draining large amount of serosanguineous drainage. Currently maintained on Zosyn. Wound cultures pending. Afebrile. Review systems unable to obtain as patient currently on BiPAP. Active Medications Generic Name Dose Route Start Last Admin Trade Name Freq PRN Reason Stop Dose Admin Hydrocodone Bitart/Acetaminophen 1 each 12/01/17 12:20 12/08/17 06:26 [place] 5-325 PO 1 each Q4HR PRN Administration MILD TO MODERATE Pain Hydrocodone Bitart/Acetaminophen 2 each 12/01/17 12:20 12/08/17 18:41 [place] 5-325 PO 2 each Q4HR PRN Administration MODERATE TO SEVERE Pain Acetazolamide Sodium 250 mg 12/08/17 09:15 12/08/17 11:16 Diamox IV 12/08/17 21:01 250 mg Q12HR [facility] Administration Albuterol/Ipratropium 3 ml 11/26/17 17:53 12/08/17 05:16 Duoneb 0.5 Mg-3 Mg/3 Ml Soln INHALATION 3 ml RT-Q2H PRN Administration Shortness Of Breath Or Wheezing Albuterol/Ipratropium 3 ml 12/03/17 08:00 12/08/17 15:38 Duoneb 0.5 Mg-3 Mg/3 Ml Soln INHALATION 3 ml RT-QID [facility] Administration Amiodarone HCl 200 mg 12/08/17 09:00 12/08/17 08:24 Cordarone PO 200 mg BID [facility] Administration Aspirin 81 mg 11/26/17 10:15 12/08/17 08:24 Aspirin PO 81 mg DAILY [facility] Administration Atorvastatin Calcium 40 mg 11/26/17 09:00 12/08/17 08:25 Lipitor PO 40 mg DAILY [facility] Administration Benzocaine/Menthol 1 each 11/25/17 19:03 Cepacol Lozenge MUCOUS MEM Q2H PRN Sore Throat Bisacodyl 10 mg 11/26/17 17:52 Dulcolax RECTAL DAILY PRN Constipation Budesonide 1 mg 12/01/17 20:00 12/08/17 09:26 Pulmicort INHALATION 1 mg RT-BID [facility] Administration Escitalopram Oxalate 10 mg 12/07/17 21:00 12/07/17 20:10 Lexapro PO 10 mg HS [facility] Administration Piperacillin/Tazobactam/ 50 mls @ 12.5 mls/hr 12/04/17 16:00 12/08/17 16:11 Dextrose 3.375 gm/ IV Solution IVPB 12.5 mls/hr Q8HR [facility] Administration Sodium Chloride 1,000 mls @ 20 mls/hr 12/06/17 10:45 12/08/17 13:47 Saline 0.9% IV Not Given .Q24H [facility] Insulin Aspart 0 unit 12/02/17 21:00 12/08/17 17:46 Novolog SQ 1 unit ACHS [facility] Administration Protocol Magnesium Hydroxide 2,400 mg 11/26/17 17:53 Milk Of Magnesia PO BID PRN Constipation Metoprolol Tartrate 50 mg 12/06/17 21:00 12/08/17 08:24 Lopressor PO 50 mg BID [facility] Administration Miscellaneous Information 1 each 11/25/17 19:03 Magnesium Per Protocol MISCELLANE DAILY PRN Per Protocol Protocol Miscellaneous Information 1 each 11/25/17 19:03 Phosphorus Per Protocol MISCELLANE DAILY PRN Per Protocol Protocol Miscellaneous Information 1 each 11/25/17 19:03 Potassium Per Protocol MISCELLANE DAILY PRN Per Protocol Protocol Ondansetron HCl 4 mg 11/25/17 19:03 Zofran IVP Q6HR PRN Nausea And Vomiting Pantoprazole Sodium 40 mg 12/05/17 07:30 12/08/17 08:25 Protonix PO 40 mg AC-BRKFST CARLEE Administration Senna/Docusate Sodium 2 each 11/26/17 21:00 12/07/17 20:16 Senokot-S PO 2 each HS CARLEE Administration Sodium Chloride 10 ml 11/25/17 21:00 12/08/17 11:16 Saline Flush IV 10 ml BID CARLEE Administration 12/09/17 Remains in sinus rhythm. mostly BiPAP dependent. Incentive spirometer up to 700 -750. Chest x-ray reporting improving moderate pleural effusion, cardiomegaly. Sternal wound culture positive for gram-negative bacilli. Maintained on Zosyn. Diet intake fair. Blood sugars controlled. Review systems unable to be performed as patient on BiPAP Active Medications Hydrocodone Bitart/Acetaminophen ([place] 5-325) 1 each PO Q4HR PRN PRN Reason: MILD TO MODERATE Pain Last Admin: 12/09/17 10:03 Dose: 1 each Hydrocodone Bitart/Acetaminophen ([place] 5-325) 2 each PO Q4HR PRN PRN Reason: MODERATE TO SEVERE Pain Last Admin: 12/09/17 14:51 Dose: 2 each Albuterol/Ipratropium (Duoneb 0.5 Mg-3 Mg/3 Ml Soln) 3 ml INHALATION RT-Q2H PRN PRN Reason: Shortness Of Breath Or Wheezing Last Admin: 12/08/17 05:16 Dose: 3 ml Albuterol/Ipratropium (Duoneb 0.5 Mg-3 Mg/3 Ml Soln) 3 ml INHALATION RT-QID [facility] [place] Last Admin: 12/09/17 15:42 Dose: 3 ml Amiodarone HCl (Cordarone) 200 mg PO BID [facility] [place] Last Admin: 12/09/17 08:12 Dose: 200 mg Aspirin (Aspirin) 81 mg PO DAILY [facility] [place] Last Admin: 12/09/17 08:13 Dose: 81 mg Atorvastatin Calcium (Lipitor) 40 mg PO DAILY [facility] [place] Last Admin: 12/09/17 08:13 Dose: 40 mg Benzocaine/Menthol (Cepacol Lozenge) 1 each MUCOUS MEM Q2H PRN PRN Reason: Sore Throat Bisacodyl (Dulcolax) 10 mg RECTAL DAILY PRN PRN Reason: Constipation Budesonide (Pulmicort) 1 mg INHALATION RT-BID [facility] [place] Last Admin: 12/09/17 07:45 Dose: 1 mg Escitalopram Oxalate (Lexapro) 10 mg PO HS [facility] [place] Last Admin: 12/08/17 20:33 Dose: 10 mg Piperacillin/Tazobactam/ (Dextrose 3.375 gm/ IV Solution) 50 mls @ 12.5 mls/hr IVPB Q8HR [facility] [place] Last Admin: 12/09/17 08:16 Dose: 12.5 mls/hr Sodium Chloride (Saline 0.9%) 1,000 mls @ 20 mls/hr IV .Q24H [facility] [place] Last Admin: 12/09/17 08:17 Dose: 20 mls/hr Insulin Aspart (Novolog) 0 unit SQ ACHS CARLEE PRN Reason: Protocol Last Admin: 12/09/17 12:23 Dose: Not Given Magnesium Hydroxide (Milk Of Magnesia) 2,400 mg PO BID PRN PRN Reason: Constipation Metoprolol Tartrate (Lopressor) 50 mg PO BID [facility] [place] Last Admin: 12/09/17 08:13 Dose: 50 mg Miscellaneous Information (Magnesium Per Protocol) 1 each MISCELLANE DAILY PRN ; Protocol PRN Reason: Per Protocol Miscellaneous Information (Phosphorus Per Protocol) 1 each MISCELLANE DAILY PRN ; Protocol PRN Reason: Per Protocol Miscellaneous Information (Potassium Per Protocol) 1 each MISCELLANE DAILY PRN ; Protocol PRN Reason: Per Protocol Ondansetron HCl (Zofran) 4 mg IVP Q6HR PRN PRN Reason: Nausea And Vomiting Pantoprazole Sodium (Protonix) 40 mg PO AC-BRKFST [facility] [place] Last Admin: 12/09/17 08:11 Dose: 40 mg Senna/Docusate Sodium (Senokot-S) 2 each PO HS [facility] [place] Last Admin: 12/08/17 20:37 Dose: 2 each Sodium Chloride (Saline Flush) 10 ml IV BID [facility] [place] Last Admin: 12/09/17 08:13 Dose: 10 ml 12/13/17 maintained on Merrem and vancomycin. BiPAP dependent. Worsening chest x-ray, chest CT reporting near complete collapse of left lung, enlarging moderate to large pericardial effusion. Echo pending. Multiple episodes of diarrhea. Atrial flutter with RVR, Review systems unable to be performed as patient on BiPAP Active Medications Generic Name Dose Route Start Last Admin Trade Name Freq PRN Reason Stop Dose Admin Hydrocodone Bitart/Acetaminophen 1 each 12/01/17 12:20 12/13/17 08:08 [place] 5-325 PO 1 each Q4HR PRN Administration MILD TO MODERATE Pain Hydrocodone Bitart/Acetaminophen 2 each 12/01/17 12:20 12/13/17 15:08 [place] 5-325 PO 2 each Q4HR PRN Administration MODERATE TO SEVERE Pain Albuterol/Ipratropium 3 ml 11/26/17 17:53 12/08/17 05:16 Duoneb 0.5 Mg-3 Mg/3 Ml Soln INHALATION 3 ml RT-Q2H PRN Administration Shortness Of Breath Or Wheezing Albuterol/Ipratropium 3 ml 12/03/17 08:00 12/13/17 16:02 Duoneb 0.5 Mg-3 Mg/3 Ml Soln INHALATION Not Given RT-QID CARLEE Amiodarone HCl 200 mg 12/11/17 20:00 12/13/17 09:12 Cordarone PO 200 mg BID@0800,2000 CARLEE Administration Aspirin 81 mg 11/26/17 10:15 12/13/17 09:13 Aspirin PO 81 mg DAILY CARLEE Administration Atorvastatin Calcium 40 mg 11/26/17 09:00 12/13/17 09:13 Lipitor PO 40 mg DAILY CARLEE Administration Benzocaine/Menthol 1 each 11/25/17 19:03 Cepacol Lozenge MUCOUS MEM Q2H PRN Sore Throat Bisacodyl 10 mg 11/26/17 17:52 12/12/17 17:45 Dulcolax RECTAL 10 mg DAILY PRN Administration Constipation Budesonide 1 mg 12/01/17 20:00 12/13/17 07:46 Pulmicort INHALATION 1 mg RT-BID CARLEE Administration Escitalopram Oxalate 10 mg 12/07/17 21:00 12/12/17 20:16 Lexapro PO 10 mg HS CARLEE Administration Heparin Sodium (Porcine) 5,000 unit 12/10/17 16:00 12/13/17 09:14 Heparin SQ 5,000 unit Q8HR CARLEE Administration Sodium Chloride 1,000 mls @ 20 mls/hr 12/06/17 10:45 12/13/17 09:49 Saline 0.9% IV 20 mls/hr .Q24H CARLEE Administration Meropenem 1 gm/ Sodium 100 mls @ 100 mls/hr 12/09/17 22:00 12/13/17 09:46 Chloride IVPB 100 mls/hr Q8HR CARLEE Administration Vancomycin HCl 1,750 mg/ 250 mls @ 125 mls/hr 12/13/17 14:00 12/13/17 14:15 Sodium Chloride IVPB 125 mls/hr Q12HR@0000,1200 CARLEE Administration Insulin Aspart 0 unit 12/02/17 21:00 12/13/17 12:34 Novolog SQ Not Given ACHS [facility] [place] Protocol Lactobacillus Acidoph/Bulgaricus 1 each 12/13/17 16:00 Lactinex PO TID CARLEE Magnesium Hydroxide 2,400 mg 11/26/17 17:53 Milk Of Magnesia PO BID PRN Constipation Metoprolol Tartrate 50 mg 12/11/17 22:00 12/13/17 09:13 Lopressor PO 50 mg BID@1000,2200 CARLEE Administration Miscellaneous Information 1 each 11/25/17 19:03 Magnesium Per Protocol MISCELLANE DAILY PRN Per Protocol Protocol Miscellaneous Information 1 each 11/25/17 19:03 Phosphorus Per Protocol MISCELLANE DAILY PRN Per Protocol Protocol Miscellaneous Information 1 each 11/25/17 19:03 Potassium Per Protocol MISCELLANE DAILY PRN Per Protocol Protocol Ondansetron HCl 4 mg 11/25/17 19:03 Zofran IVP Q6HR PRN Nausea And Vomiting Pantoprazole Sodium 40 mg 12/05/17 07:30 12/13/17 09:13 Protonix PO 40 mg AC-BRKFST CARLEE Administration Senna/Docusate Sodium 2 each 11/26/17 21:00 12/12/17 20:16 Senokot-S PO 2 each HS CARLEE Administration Sodium Chloride 10 ml 11/25/17 21:00 12/13/17 09:49 Saline Flush IV 10 ml BID CARLEE Administration 12/14/17 maintained on Merrem and vancomycin per infectious disease .remains BiPAP dependent. Chest x-ray reporting persistent significant left lung collapse with minimal improvement. Scheduled for bronchoscopy this afternoon. INR 2.1, receiving FFP. No diarrhea today. Telemetry atrial fibrillation/ flutter, heart rate 110s to 120s. 12/15/2017 developed worsened respiratory distress despite BiPAP, diuretics, antiarrhythmics, intubated last night. Received 2 more units of FFP this morning, underwent bronchoscopy this morning; mucous plug discovered in the left lower lobe. Pleural Cultures pending. Maintained on FiO2 45%/+5 of PEEP. Continues on IV antibiotics. Currently on 2-1/2 mics of Levophed and diprovan drips. Atrial tachycardia, heart rate in the 130s. Amiodarone discontinued as per cardiology. Developed increased bleeding from wound VAC with turning during bath-Anticoagulation placed on hold. Afebrile. 12/16/17 remains vent dependent, FiO2 40%/+5 of PEEP. Sedated on Diprovan. Requiring low-dose of Levophed. Marginal urine output, received albumin last night. Tachycardia resolved, sinus rhythm per telemetry. Wound VAC dressing changed today, serosanguineous drainage. Bronchoscopy yesterday, cultures pending. Blood sugars controlled. 12/17/2017 today weaning trials of pressure support in increments of 3 hours , resting at night, FiO2 40%/+5 of PEEP. Chest x-ray reporting improvement. Currently on Levophed. Tolerating tube feeds at goal with minimal to no residual. Maintained on IV antibiotics as per infectious disease. Telemetry sinus rhythm. 12/20/17 remains vent dependent FiO2 40%/PEEP of 5. Yesterday vent weaning during the day hours, tolerated well. Wound VAC changed yesterday. Scheduled for sternal flap repair tomorrow. Maintained on IV antibiotics. T-max 99.4. Last night returned into rapid atrial flutter, Currently sinus rhythm. 12/21/2017 remains vent dependent. Telemetry sinus rhythm. Tube feeds on hold. Scheduled for sternal flap repair today. 12/22/2017 underwent flap repair/grafting yesterday with plastic surgeon. Pain controlled. Extubated this morning, maintained on BiPAP. Telemetry sinus rhythm. Albumin remains at 2.2, receiving albumin. 12/23/17 .Patient respiratory arrested while Dobbhoff attempting to be placed, returned into atrial fibrillation with RVR. Reintubated, converted back into sinus rhythm. Midsternal dressing being changed at bedside by cardiothoracic surgery. Trach and PEG being discussed as per pulmonary. 12/24/17 scheduled for tracheostomy this morning. Chest x-ray reporting progressive CHF change with bilateral effusions possible underlying pneumonia, ET tube 1 cm above osvaldo. Telemetry sinus rhythm. Levophed currently on hold. 12/27/2017 Dobbhoff recently placed, developed nausea vomiting throughout the night. Abdomen distended, tympanic.Tube feeds placed on hold, flat plate of abdomen pending. PEG tube being discussed. Passing loose stools. Denies abdominal pain .Telemetry sinus rhythm. Maintained on FiO2 35%/+ of PEEP. Tolerated CPAP for 3 hours yesterday. Yesterday and today patient received Lasix IV push, diuresed well with 24-hour I&O reflecting a negative fluid balance. Chest x-ray reporting similar findings. T-max 99.2. 12/28/2017 maintained on IV antibiotics, significant wound drainage. Afebrile. remains vent dependent, FiO2 35%/+5 of PEEP. Chest x-ray stable. Yesterday abdominal x-ray reported possible underlying ileus, obstruction. Dobbhoff tube feeds placed on hold. Follow-up Abdominal x-ray this morning reporting markedly dilated small bowel loops ,severe postoperative ileus with partial obstruction. Abdomen distended. Weaning parameters suboptimal ,no weaning trials today as per pulmonary. Hemoglobin 7.anasarca, weeping .receiving Albumin , Lasix IV push 1. 12/29/17 maintained on vancomycin, Merrem. abdomen less distended today.small bowel movements 2 yesterday, on lactulose. TPN to be initiated today. Wound VAC /dressing changed this a.m.remains vent dependent and 35% FiO2/+5 of PEEP.pressure-support 2hr.hemoglobin 7.2.evaluated by general surgery with recommendations of no abdominal surgical intervention at this time. 12/30/2017.returned into atrial flutter last night, heart rates up to the 130s, currently heart rate in the 120s. Continues on Beta krunal,amiodarone and Cardizem.tolerating TPN.hemoglobin 7.1, potassium 3.1, being supplemented by ICU replacement protocol.afebrile.Dobhoff with tube feeds at low rate initiated. 12/31/17 remains vent dependent, FiO2 35%/+5 of PEEP. Telemetry atrial fib/ aflutter heart rates in the 140s. TPN infusing. Failed Dobhoff trial this morning, Flat plate reporting gas-filled loops of bowel without evident pneumoperitoneum. Abdomen distended, Dobbhoff discontinued, NG tube placed. Passing flatus. Objective - Vital Signs Vital signs: Vital Signs Temp 99.1 F 12/31/17 16:00 Pulse 143 H 12/31/17 19:00 Resp 23 12/31/17 19:00 BP 116/54 12/19/17 10:00 Pulse Ox 97 12/31/17 19:00 Intake & Output 12/31/17 12/31/17 01/01/18 06:59 18:59 06:59 Intake Total 831 2465 77 Output Total 1040 2355 645 Balance -209 110 -568 Weight 99.8 kg 99.8 kg Intake: IV 801 914 77 Dextrose 5%-0.45% NaCl 1, 110 10 000 ml @ 10 mls/hr IV . Q24H CARLEE Rx#:[id number] Mvi, Adult No.4 with Vit 768 768 64 K 10 ml Trace (Conc-1Ml/ Dose) 1 ml In Foote 3.3%/ Dex 9.8%/Lipid/Lytes 1, 540 ml @ 64 mls/hr IV . Q24H CARLEE Rx#:[id number] Pressure Bag 33 36 3 Intake, IV Titration 1551 Amount Mvi, Adult No.4 with Vit 1551 K 10 ml Trace (Conc-1Ml/ Dose) 1 ml In Foote 3.3%/ Dex 9.8%/Lipid/Lytes 1, 540 ml @ 64 mls/hr IV . Q24H CARLEE Rx#:[id number] Tube Feeding 30 0 Output: Gastric Drainage 950 600 Drainage 690 595 20 Medial Chest Incision - 100 Woundvac Right Abdomen 690 495 20 Urine 350 810 25 Other: Voiding Method Indwelling Catheter Indwelling Catheter ABP, PAP, CO, CI - Last Documented Arterial Blood Pressure 120/74 Pulmonary Artery Pressure 38/33 Cardiac Output 5.8 Cardiac Index 2.9 - Exam PHYSICAL EXAM: VITAL SIGNS: As above GENERAL: Sitting up in bed, on mechanical ventilation HEENT: Conjunctivae normal. eyes normal. NG tube present. NECK: No JVD. Tracheostomy tube present CARDIOVASCULAR: S1, S2 muffled , tachycardic,no gallops, no murmurs RESPIRATION: Breath sounds diminished in the bases,coarse. Sternal wound VAC dressing present. ABDOMEN: Distended, tympanic, right-sided abdominal dressing clean dry and intact with HENRI- large amount of serous drainage, hypoactive bowel sounds Extremities: Improving edema PSYCHIATRY:/NERVOUS SYSTEM: Unable to assess as patient on mechanical ventilation, Skin: Midsternal dressing clean dry and intact, right medial buttock & right buttock optifoam dressing intact, right wrist area ulcerations-dressing clean dry and intact.posterior scalp with pressure ulceration resting on a offload- cushion - Labs CBC & Chem 7: 12/31/17 04:30 12/31/17 04:30 Labs: Abnormal Lab Results - Last 24 Hours (Table) 12/30/17 12/31/17 12/31/17 Range/Units 23:39 04:30 04:30 RBC 2.97 L (3.80-5.40) m/uL Hgb 7.9 L (11.4-16.0) gm/dL Hct 26.1 L (34.0-46.0) % MCHC 30.4 L (31.0-37.0) g/dL RDW 19.4 H (11.5-15.5) % ABG pCO2 (35-45) mmHg ABG pO2 (83-108) mmHg ABG HCO3 (21-25) mmol/L ABG Total CO2 (19-24) mmol/L ABG O2 Saturation (94-97) % Sodium 147 H (137-145) mmol/L Carbon Dioxide 32 H (22-30) mmol/L BUN 37 H (7-17) mg/dL Glucose 120 H (74-99) mg/dL POC Glucose (mg/dL) 119 H (75-99) mg/dL Total Protein 6.2 L (6.3-8.2) g/dL Albumin 3.1 L (3.5-5.0) g/dL 12/31/17 12/31/17 12/31/17 Range/Units 04:59 06:40 11:58 RBC (3.80-5.40) m/uL Hgb (11.4-16.0) gm/dL Hct (34.0-46.0) % MCHC (31.0-37.0) g/dL RDW (11.5-15.5) % ABG pCO2 48 H (35-45) mmHg ABG pO2 109 H (83-108) mmHg ABG HCO3 33 H (21-25) mmol/L ABG Total CO2 34 H (19-24) mmol/L ABG O2 Saturation 98.9 H (94-97) % Sodium (137-145) mmol/L Carbon Dioxide (22-30) mmol/L BUN (7-17) mg/dL Glucose (74-99) mg/dL POC Glucose (mg/dL) 133 H 123 H (75-99) mg/dL Total Protein (6.3-8.2) g/dL Albumin (3.5-5.0) g/dL 12/31/17 Range/Units 18:13 RBC (3.80-5.40) m/uL Hgb (11.4-16.0) gm/dL Hct (34.0-46.0) % MCHC (31.0-37.0) g/dL RDW (11.5-15.5) % ABG pCO2 (35-45) mmHg ABG pO2 (83-108) mmHg ABG HCO3 (21-25) mmol/L ABG Total CO2 (19-24) mmol/L ABG O2 Saturation (94-97) % Sodium (137-145) mmol/L Carbon Dioxide (22-30) mmol/L BUN (7-17) mg/dL Glucose (74-99) mg/dL POC Glucose (mg/dL) 118 H (75-99) mg/dL Total Protein (6.3-8.2) g/dL Albumin (3.5-5.0) g/dL Assessment and Plan Assessment: 1. Status post CABG with mitral valve replacement 2. Acute blood loss anemia with massive blood transfusions postoperatively, in a patient with history of GI bleed 3. Hypertension 4. Left subclavian stenosis 5. Proximal atrial fibrillation/flutter status post cardioversion with recurrence of atrial fibrillation 6. Acute Hypoxic respiratory failure, Re intubated x2. Status post tracheostomy 7. Obesity, BMI 41.6 8. S/P PICC line placement 9. 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 Acute UTI Serratia marcescens, E. coli 11. Bilateral pleural effusions, improved with diuretics. Possible aspiration pneumonia, possible fluid overload. 12. Sternal wound debridement, culture growing Serratia marcescens, status post wound VAC. Status post sternal flap grafting. 13. Pressure ulceration of back and buttocks, stage III 14. Diarrhea, ruling out C. difficile colitis. 15. Status post bronchoscopy with left lower lobe mucous plug discovered 16. ileus 17. TPN Plan: Continue on current medication regime , amiodarone, metoprolol ,reglan, monitoring and symptomatic treatment. strict aspiration precautions- antiarrhythmics as per cardiology. Maintain IV antibiotics, nebulized bronchodilators, steroids. Prognosis guarded given multiple complex medical issues. The impression and plan of care has been dictated as directed. : I performed a history and examination of this patient, discussed the same with the dictator. I agree with the dictator's note ,documented as a scribe. Any additional findings or plans will be noted.
--- NOTE | 2017-12-31 22:31 | P.PN ---
Subjective Progress Note Date: 12/31/17 Principal diagnosis: Sternal wound dehiscence Pleasant 67-year-old female who has an extensive past medical history who is now 14 days postoperative from her open heart procedure it which point in time a mitral valve placement occurred, reverse saphenous vein coronary artery bypass grafting 1 to obtuse marginal, Maze procedure and ligation of the left atrial appendage all occurred interoperatively left ventricular wall tear occurred and was repaired. The patient has a known history of multiple medical troubles before her surgery that included her obesity, COPD and marked deconditioning. Patient has had difficulties recently that included urinary tract infection with E. coli and Serratia and has been treated with intravenous antibiotic therapy with Zosyn. She was having some improvement but then developed dehiscence of her sternal wound and there are plans for surgical debridement tomorrow wound culture showing gram-negative bacilli and with at the infectious diseases consultation was requested. The patient continues to have significant respiratory difficulties and is currently on BiPAP for support. Postoperatively the patient was hemodynamically unstable which made even turning of the patient not possible which has resulted in unavoidable areas of skin breakdown, that are now treatable given her improvement 12/10/2017 reveals the patient to be postoperative from the sternal wound debridement. The surgical note as well as discussion with the surgical team reveals evidence of poor bone quality and all of the sternal wires had pulled through her bony areas. Negative pressure therapy is in place. She is tolerating this well. Plastic surgery consult has been requested for reconstruction of her chest in the near future. Gram-negative bacilli growing from the sternal wound. She is quite comfortable after procedure, chest tube was placed of the left cavity and this is improved some left lung function and she seems less short of breath. The daughter is present and her questions were answered. 12/11/2017 reveals the patient to have had some respiratory distress today and is back on BiPAP at this time. She relates that her pain is under much significant control. Been no other new acute complaints are being made. 12/13/2017 the patient remains in the ICU she is currently on BiPAP but relates that she is quite comfortable. We will work with the nursing staff to change her VAC dressing at this time. await the plastic surgery timeline. 12/15/2017 reveals the patient to remain in intensive care unit, her status has worsened and that she developed flash pulmonary edema and respiratory failure requiring reintubation sedation mechanical ventilation. She underwent bronchoscopy today for removal of mucous plugs and to help with the collapsed left lower lobe. The patient has require some vasopressor support but is more stable this afternoon than earlier. She is sedated and comfortable. She has significant decline of hemoglobin is 7.6. Anticoagulation was held. Is being closely monitored by surgery and they await the plastic surgery intervention. 12/16/2017 cases briefly discussed with the cardiothoracic nurse practitioner in that the wound VAC is being changed today. It is unchanged with no difficulties. No further bleeding is noted. Plastic surgery evaluation apparently will occur tomorrow so the surgical plan can be devised. 12/20/2017 since last visit current thoracic has again change the wound VAC without difficulties. She tolerated it well. She remains on the ventilator at this point in time, does not appear to have any plans for weaning because she will have her plastic closure over open chest tomorrow. She's been hemodynamically stable with intermittent atrial flutter. No significant changes of oxygen requirements, drainage from the wound VAC is minimal as is drainage from her chest tube. 12/21/2017 patient is status post the partial plastic closure of her sternal wound. Complete cardiac coverage occurred but only partial closure was possible. Oxygen requirements are improving postoperative and is being closely watched for any further blood loss anemia. 12/23/2017 reveals the patient to be extubated on BiPAP. She is comfortable with her pain level is about a 2. Shortness of breath is not severe. She is unable to eat and a Dobbhoff will be placed a bit later today to help her with nutritional status to help her recovery. The current situation is discussed with the cardiothoracic surgeon team 12/24/2017 reveals evidence of the changes status in that she has now had a tracheostomy applied due to her chronic respiratory failure. Cardiothoracic surgery has changed the dressing today. Patient is comfortable after her surgery. Denies new acute discomforts. 12/25/2017 reveals that the patient is doing well with her tracheostomy. She is on 35% FiO2 with excellent saturations. The patient relates that she is comfortable her pain level is no more than a 4. She is receiving feedings via the Dobbhoff is tolerating that well but is having a few soft stools without swapnil diarrhea. 12/27/2017 patient remained stable after tracheostomy. With pain level is no more than a 2 at this point in time. Feedings via the Dobbhoff are going well. The wound VAC dressing was changed today without difficulties. Leukocytosis is improving. No hypotension. 12/28/2017. Overall the patient has been stable and that her pulmonary status without acute change. Doing well with the tracheostomy. Patient however developed significant abdominal distention with a tympanic abdomen. Abdominal x -ray revealed evidence of ileus. She's been seen by general surgery and they will determine if she needs an NG tube based on x-rays. She apparently is more comfortable this evening that she was earlier in the day. Nursing staff relates no fevers. 12/29/2017 patient is stable. Not having new acute difficulties. Is noted did have a pressure ulceration to the posterior aspect of the scalp that is being treated with a fall offloading cushion. Patient is actually quite comfortable today. Her ileus is starting to improve. Surgery he has no plans for surgical intervention into the abdomen. Is tolerating TPN. 12/30/2017 the patient is stable. She is doing well with her physical therapy and her antibiotic therapy for the sternal wound dehiscence. Ileus is improving and tolerating her TPN well. 12/31/2017 patient has been seen by the cardiothoracic team and wound VAC was changed without difficulty. She is having significant ongoing atrial flutter and has been seen by cardiology and they await medication effect for spontaneous transition back to a normal sinus mechanism that she has done the past. Patient is mildly short of breath but does well on the current ventilator settings. Her pain level is no more than a 2 and she is doing well with her physical therapy. NG tube was placed and this has given her relief of her distention and discomfort from her ileus. Objective - Vital Signs Vital signs: Vital Signs Temp 99.3 F 12/31/17 20:00 Pulse 149 H 12/31/17 21:00 Resp 19 12/31/17 21:00 BP 116/54 12/19/17 10:00 Pulse Ox 98 12/31/17 21:00 Intake & Output 12/31/17 12/31/17 01/01/18 06:59 18:59 06:59 Intake Total 831 2465 154 Output Total 1040 6355 725 Balance -209 110 -571 Weight 99.8 kg 99.8 kg Intake: IV 801 914 154 Dextrose 5%-0.45% NaCl 1, 110 20 000 ml @ 10 mls/hr IV . Q24H [facility] Rx#:[id number] Mvi, Adult No.4 with Vit 768 768 128 K 10 ml Trace (Conc-1Ml/ Dose) 1 ml In Foote 3.3%/ Dex 9.8%/Lipid/Lytes 1, 540 ml @ 64 mls/hr IV . Q24H [facility] Rx#:[id number] Pressure Bag 33 36 6 Intake, IV Titration 1551 Amount Mvi, Adult No.4 with Vit 1551 K 10 ml Trace (Conc-1Ml/ Dose) 1 ml In [place]e 3.3%/ Dex 9.8%/Lipid/Lytes 1, 540 ml @ 64 mls/hr IV . Q24H [facility] Rx#:[id number] Tube Feeding 30 0 0 Output: Gastric Drainage 950 600 Drainage 690 595 60 Medial Chest Incision - 100 Woundvac Right Abdomen 690 495 60 Urine 350 810 65 Other: Voiding Method Indwelling Catheter Indwelling Catheter ABP, PAP, CO, CI - Last Documented Arterial Blood Pressure 96/65 Pulmonary Artery Pressure 38/33 Cardiac Output 5.8 Cardiac Index 2.9 - Exam Obese 67-year-old woman who is now extubated on BiPAP HEENT: Anicteric conjunctiva are pink and moist nasal mucosa grossly intact without significant lesions, there is no thrush. Oral mucosa is dry but no swapnil lesions could be seen, NG tube is now placed. Neck: The neck is supple without significant lymphadenopathy or thyromegaly. Tracheostomy intact without bleeding there is evidence of the posterior scalp lesion please refer to the nursing photography. Lungs: Symmetrical air entry is noted. There is scattered crackles but no swapnil bronchial sounds Heart: Irregular with an audible S1 and S2 soft S4 no audible murmur no click or rub Chest: The patient's mid sternotomy incision is now covered with a postoperative dressing from the plastic closure which is reported to be a partial flap closure Abdomen: Obese, Positive bowel sounds soft and nontender without palpable masses or organomegaly. There was no guarding or rebound. Distention is slightly improved with initiation of the nasogastric tube and suction. Symptomatically she feels better Extremities: The upper and lower extremities have evidence of edema harvest site is intact there is some bruising that is noted especially on the left groin area. IV sites are intact. Skin: With the nursing staff the buttocks pressure ulcerations are evaluated which are showing improvement. The ulceration on the skin fold above her buttocks is also evaluated and appears to be improving. Also improvement of the ulceration to the right wrist area. Skin however is now having some blistering due to her hypoalbuminemia and excessive volume. Sternal wound dressing is dry and intact. Neuro: Comfortable at this time pain level is 2, no acute changes neurologically - Labs CBC & Chem 7: 12/31/17 04:30 12/31/17 04:30 Labs: Abnormal Lab Results - Last 24 Hours (Table) 12/30/17 12/31/17 12/31/17 Range/Units 23:39 04:30 04:30 RBC 2.97 L (3.80-5.40) m/uL Hgb 7.9 L (11.4-16.0) gm/dL Hct 26.1 L (34.0-46.0) % MCHC 30.4 L (31.0-37.0) g/dL RDW 19.4 H (11.5-15.5) % ABG pCO2 (35-45) mmHg ABG pO2 (83-108) mmHg ABG HCO3 (21-25) mmol/L ABG Total CO2 (19-24) mmol/L ABG O2 Saturation (94-97) % Sodium 147 H (137-145) mmol/L Carbon Dioxide 32 H (22-30) mmol/L BUN 37 H (7-17) mg/dL Glucose 120 H (74-99) mg/dL POC Glucose (mg/dL) 119 H (75-99) mg/dL Total Protein 6.2 L (6.3-8.2) g/dL Albumin 3.1 L (3.5-5.0) g/dL 12/31/17 12/31/17 12/31/17 Range/Units 04:59 06:40 11:58 RBC (3.80-5.40) m/uL Hgb (11.4-16.0) gm/dL Hct (34.0-46.0) % MCHC (31.0-37.0) g/dL RDW (11.5-15.5) % ABG pCO2 48 H (35-45) mmHg ABG pO2 109 H (83-108) mmHg ABG HCO3 33 H (21-25) mmol/L ABG Total CO2 34 H (19-24) mmol/L ABG O2 Saturation 98.9 H (94-97) % Sodium (137-145) mmol/L Carbon Dioxide (22-30) mmol/L BUN (7-17) mg/dL Glucose (74-99) mg/dL POC Glucose (mg/dL) 133 H 123 H (75-99) mg/dL Total Protein (6.3-8.2) g/dL Albumin (3.5-5.0) g/dL 12/31/17 Range/Units 18:13 RBC (3.80-5.40) m/uL Hgb (11.4-16.0) gm/dL Hct (34.0-46.0) % MCHC (31.0-37.0) g/dL RDW (11.5-15.5) % ABG pCO2 (35-45) mmHg ABG pO2 (83-108) mmHg ABG HCO3 (21-25) mmol/L ABG Total CO2 (19-24) mmol/L ABG O2 Saturation (94-97) % Sodium (137-145) mmol/L Carbon Dioxide (22-30) mmol/L BUN (7-17) mg/dL Glucose (74-99) mg/dL POC Glucose (mg/dL) 118 H (75-99) mg/dL Total Protein (6.3-8.2) g/dL Albumin (3.5-5.0) g/dL Laboratory Results WBC 10.1 k/uL (3.8-10.6) 12/31/17 04:30 RBC 2.97 m/uL (3.80-5.40) L 12/31/17 04:30 Hgb 7.9 gm/dL (11.4-16.0) L 12/31/17 04:30 Hct 26.1 % (34.0-46.0) L 12/31/17 04:30 MCV 87.7 fL (80.0-100.0) 12/31/17 04:30 MCH 26.6 pg (25.0-35.0) 12/31/17 04:30 MCHC 30.4 g/dL (31.0-37.0) L 12/31/17 04:30 RDW 19.4 % (11.5-15.5) H 12/31/17 04:30 Plt Count 420 k/uL (150-450) 12/31/17 04:30 Neutrophils % 87 % 12/27/17 05:10 Neutrophils % (Manual) 98 % 12/05/17 04:25 Lymphocytes % 5 % 12/27/17 05:10 Lymphocytes % (Manual) 1 % 12/05/17 04:25 Monocytes % 4 % 12/27/17 05:10 Monocytes % (Manual) 1 % 12/05/17 04:25 Eosinophils % 2 % 12/27/17 05:10 Basophils % 0 % 12/27/17 05:10 Myelocytes % 1 % 12/03/17 04:15 Neutrophils # 9.3 k/uL (1.3-7.7) H 12/27/17 05:10 Neutrophils # (Manual) 26.95 k/uL (1.3-7.7) H 12/05/17 04:25 Lymphocytes # 0.5 k/uL (1.0-4.8) L 12/27/17 05:10 Lymphocytes # (Manual) 0.28 k/uL (1.0-4.8) L 12/05/17 04:25 Monocytes # 0.4 k/uL (0-1.0) 12/27/17 05:10 Monocytes # (Manual) 0.28 k/uL (0-1.0) 12/05/17 04:25 Eosinophils # 0.2 k/uL (0-0.7) 12/27/17 05:10 Basophils # 0.0 k/uL (0-0.2) 12/27/17 05:10 Myelocytes # (Manual) 0.17 k/uL (0) H 12/03/17 04:15 Nucleated RBCs 0 /100 WBC (0-0) 12/05/17 04:25 Manual Slide Review Performed 12/05/17 04:25 Polychromasia Present 12/03/17 04:15 Hypochromasia Marked 12/31/17 04:30 Poikilocytosis Slight 12/31/17 04:30 Anisocytosis Slight 12/31/17 04:30 Microcytosis Slight 12/17/17 04:45 Target Cells Present 12/03/17 04:15 PT 10.8 sec (9.0-12.0) 12/21/17 04:50 INR 1.1 (<1.2) 12/21/17 04:50 APTT 23.9 sec (22.0-30.0) 12/21/17 04:50 Fibrinogen 334 mg/dL (200-500) 11/26/17 04:22 Sample Site [place] 12/31/17 04:59 ABG pH 7.44 (7.35-7.45) 12/31/17 04:59 ABG pCO2 48 mmHg (35-45) H 12/31/17 04:59 ABG pO2 109 mmHg (83-108) H 12/31/17 04:59 ABG HCO3 33 mmol/L (21-25) H 12/31/17 04:59 ABG Total CO2 34 mmol/L (19-24) H 12/31/17 04:59 ABG O2 Saturation 98.9 % (94-97) H 12/31/17 04:59 ABG Base Excess 8.6 mmol/L 12/31/17 04:59 ABG Hematocrit 24 % (34.0-46.0) L 11/25/17 17:37 Robbi Test Yes 12/31/17 04:59 ABG Sodium 144 mmol/L (135-146) 11/25/17 17:37 ABG Potassium 3.8 mmol/L (3.4-4.5) 11/25/17 17:37 ABG Ionized Calcium 4.0 mg/dL (4.5-5.3) L 11/25/17 17:37 ABG Glucose 139 mg/dL (75-99) H 11/25/17 17:37 ABG Lactic Acid 2.8 mmol/L (0.5-1.6) H* 11/25/17 17:37 Hemoglobin 7.8 gm/dL (11.4-16.0) L 11/25/17 17:37 FiO2 35 % 12/31/17 04:59 Sodium 147 mmol/L (137-145) H 12/31/17 04:30 Potassium 3.9 mmol/L (3.5-5.1) 12/31/17 04:30 Chloride 103 mmol/L (98-107) 12/31/17 04:30 Carbon Dioxide 32 mmol/L (22-30) H 12/31/17 04:30 Anion Gap 12 mmol/L 12/31/17 04:30 BUN 37 mg/dL (7-17) H 12/31/17 04:30 Creatinine 0.80 mg/dL (0.52-1.04) 12/31/17 04:30 Est GFR (MDRD) Af Amer >60 (>60 ml/min/1.73 sqM) 12/07/17 04:00 Est GFR (MDRD) Non-Af >60 (>60 ml/min/1.73 sqM) 12/07/17 04:00 Est GFR (CKD-EPI)AfAm 88 (>60 ml/min/1.73 sqM) 12/31/17 04:30 Est GFR (CKD-EPI)NonAf 77 (>60 ml/min/1.73 sqM) 12/31/17 04:30 Glucose 120 mg/dL (74-99) H 12/31/17 04:30 POC Glucose (mg/dL) 118 mg/dL (75-99) H 12/31/17 18:13 POC Glu Vendor Representatives ID Sonya Alexanderth 12/31/17 18:13 Calcium 9.5 mg/dL (8.4-10.2) 12/31/17 04:30 Ionized Calcium Bruce 4.7 mg/dL (4.5-5.3) 12/11/17 15:45 Phosphorus 3.3 mg/dL (2.5-4.5) 12/31/17 04:30 Magnesium 2.3 mg/dL (1.6-2.3) 12/31/17 04:30 Total Bilirubin 0.4 mg/dL (0.2-1.3) 12/31/17 04:30 AST 36 U/L (14-36) 12/31/17 04:30 ALT 34 U/L (9-52) 12/31/17 04:30 Alkaline Phosphatase 88 U/L (38-126) 12/31/17 04:30 Total Protein 6.2 g/dL (6.3-8.2) L 12/31/17 04:30 Albumin 3.1 g/dL (3.5-5.0) L 12/31/17 04:30 Prealbumin 7.0 mg/dL (18.0-42.0) L 12/27/17 05:10 Triglycerides 130 mg/dL (<150) 12/29/17 11:45 Cholesterol 80 mg/dL (<200) 12/29/17 11:45 LDL Cholesterol, Calc 34 mg/dL (0-99) 12/29/17 11:45 HDL Cholesterol 20 mg/dL (40-60) L 12/29/17 11:45 Arterial Blood Potassium 3.8 mmol/L (3.4-4.5) 11/25/17 17:37 Arterial Blood Glucose 139 mg/dL (75-99) H 11/25/17 17:37 Urine Color Yellow 12/04/17 10:00 Urine Appearance Cloudy (Clear) H 12/04/17 10:00 Urine pH 5.5 (5.0-8.0) 12/04/17 10:00 Ur Specific [place] 1.015 (1.001-1.035) 12/04/17 10:00 Urine Protein Trace (Negative) H 12/04/17 10:00 Urine Glucose (UA) Negative (Negative) 12/04/17 10:00 Urine Ketones Negative (Negative) 12/04/17 10:00 Urine Blood Negative (Negative) 12/04/17 10:00 Urine Nitrite Negative (Negative) 12/04/17 10:00 Urine Bilirubin Negative (Negative) 12/04/17 10:00 Urine Urobilinogen <2.0 mg/dL (<2.0) 12/04/17 10:00 Ur Leukocyte Esterase Negative (Negative) 12/04/17 10:00 Urine RBC 7 /hpf (0-5) H 12/04/17 10:00 Urine WBC 1 /hpf (0-5) 12/04/17 10:00 Ur Squamous Epith Cells 8 /hpf (0-4) H 12/04/17 10:00 Urine Bacteria Occasional /hpf (None) H 12/04/17 10:00 Urine Mucus Rare /hpf (None) H 12/04/17 10:00 Fluid Source Bronchial Wash 12/15/17 10:40 Fluid Color Colorless 12/15/17 10:40 Fluid Appearance Cloudy 12/15/17 10:40 Fluid RBC 150 /uL 12/15/17 10:40 Fluid Nucleated Cells 6900 /uL 12/15/17 10:40 Fluid Polynuclear WBCs 95 % 12/15/17 10:40 Fluid Mononuclear WBCs 5 % 12/15/17 10:40 Vancomycin Trough 30.0 ug/mL 12/27/17 11:36 Random Vancomycin 21.2 ug/mL 12/16/17 04:15 Heparin-Ind Plt Ab Scrn 0.231 OD (<0.4) 11/29/17 04:50 Virus Source See Below 12/15/17 10:40 Viral Test See Below 12/15/17 10:40 Virus Analysis Interp See Below 12/15/17 10:40 Blood Type A Positive 12/21/17 11:28 Blood Type Recheck No 12/21/17 11:28 Antibody Screen NEGATIVE 12/21/17 11:28 Crossmatch See Detail 12/14/17 10:10 Transfuse Cryo [id number] 11/26/17 00:39 Transfuse Plasma 12/15/2017 12/15/17 05:51 Transfuse Platelets [id number] 11/25/17 14:55 Spec Expiration Date 12/24/2017 - 232712/21/17 11:28 Microbiology 12/15/17 10:40 Bronchial Washings - Left Acid Fast Bacilli Smear - Final 12/15/17 10:40 Bronchial Washings - Left Acid Fast Bacilli Culture - Preliminary 12/10/17 10:50 Chest Acid Fast Bacilli Smear - Final 12/10/17 10:50 Chest Acid Fast Bacilli Culture - Preliminary 12/10/17 10:45 Chest Acid Fast Bacilli Smear - Final 12/10/17 10:45 Chest Acid Fast Bacilli Culture - Preliminary 12/10/17 10:40 Chest Fungal Culture - Preliminary 12/10/17 10:45 Chest Fungal Culture - Preliminary 12/10/17 10:50 Chest Fungal Culture - Preliminary 12/24/17 11:30 Catheter Tip Catheter Tip Culture - Final 12/15/17 10:40 Bronchial Washings - Left Fungal Culture - Preliminary Rachana albicans 12/15/17 10:40 Bronchial Washings - Left Gram Stain - Final 12/15/17 10:40 Bronchial Washings - Left Bronchial Washings Culture - Final Rachana albicans 12/14/17 21:30 Sputum Gram Stain - Final 12/14/17 21:30 Sputum Sputum Culture - Final Rachana albicans 12/10/17 10:50 Chest Anaerobic Culture - Final 12/10/17 10:40 Chest Anaerobic Culture - Final 12/10/17 10:45 Chest Anaerobic Culture - Final 12/13/17 05:27 Urine,Catheterized Urine Culture - Final 12/10/17 10:40 Chest Gram Stain - Final 12/10/17 10:40 Chest Wound Culture - Final Serratia marcescens 12/10/17 10:45 Chest Gram Stain - Final 12/10/17 10:45 Chest Tissue Culture - Final Serratia marcescens 12/10/17 10:50 Chest Gram Stain - Final 12/10/17 10:50 Chest Tissue Culture - Final Serratia marcescens 12/07/17 15:40 Chest Gram Stain - Final 12/07/17 15:40 Chest Wound Culture - Final Serratia marcescens 12/04/17 10:00 Urine,Voided Urine Culture - Final Escherichia coli Serratia marcescens 11/26/17 04:00 Sputum Gram Stain - Final 11/26/17 04:00 Sputum Sputum Culture - Final Assessment and Plan (1) Severe mitral regurgitation Current Visit: Yes Status: Chronic Code(s): I34.0 - NONRHEUMATIC MITRAL ( VALVE) INSUFFICIENCY SNOMED Code(s): 30904533 (2) CAD (coronary artery disease) Current Visit: Yes Status: Chronic Code(s): I25.10 - ATHSCL HEART DISEASE OF [place] CORONARY ARTERY W/O ANG PCTRS SNOMED Code(s): 19912035 (3) Acute blood loss as cause of postoperative anemia Current Visit: Yes Status: Acute Code(s): D62 - ACUTE POSTHEMORRHAGIC ANEMIA SNOMED Code(s): 10942513451055053 (4) Pressure ulcer of contiguous region involving back and buttock, stage 3 Current Visit: Yes Status: Acute Code(s): L89.43 - PRESSR ULCER OF CONTIG SITE OF BACK, BUTTOCK AND HIP, STG 3 SNOMED Code(s): 950050846 (5) Sternal wound dehiscence Narrative/Plan: 67-year-old woman presents to Hospital for treatment of her severe mitral irritation. Underwent mitral valve replacement, coronary artery bypass grafting 1, Maze procedure and clipping of the left atrial appendage with a complication of the left ventricular wall tear. The patient has had a very protracted recovery she is now day 14 post operative and is still having difficulty with her respiratory status requiring BiPAP. The patient's nutritional status and underlying comorbidities have complicated her care. She now has evidence of the sternal dehiscence with evidence of gram negatives bacilli being found at the site. There is evidence of urinary tract infection with E. coli and Serratia. This Serratia species is somewhat resistant and consequently we'll alter the current antimicrobial therapy from Zosyn to meropenem to ensure coverage for other potential pathogens that are resistant that could be in the sternal wound while we await cultures. The patient will be going to the operating room tomorrow for debridement and wound VAC placement. The cultures were further direct the overall course of antibiotics. Urinary infection appears to be doing somewhat better. The patient fortunately is comfortable and doing well with her BiPAP. 12/10/2017 the patient is status post surgery and actually is feeling a bit better this afternoon than yesterday. Her pain is quite well controlled. She is not on BiPAP. She is less short of breath. Wound culture has verified the Serratia marcescens to the sternal wound. We'll constantly continue the current course of meropenem due to some of the resistance patterns or seeing with the species. Continue local care at this point time with the negative pressure system to the sternal wound. The plastic surgery consult is being requested for reconstruction of her chest. She will require a course of intravenous antibiotic therapy given her complex infection. Dual-lumen PICC is already in place. We'll repeat the discharge planners as to her place of rehab. 12/11/2017 the patient is metabolically stable but is having difficulties with her respiratory status and is now back on BiPAP which has been intermittent over the last multiple days. Negative pressure therapy remains intact and the sternum and we await the plastic surgery intervention. 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 Continue supportive care, and nutritional supplements as possible to improve for tissue healing. 12/13/2017 patient is on BiPAP. She is comfortable at this time. Receiving her intravenous antibiotic therapy without difficulties. At this time the surgeon present in a sterile fashion the wound VAC is removed. Surgeon evaluates and then the wound VAC is reapplied with 2 of the white foam, periwound protected with DuoDERM no difficulty with the seal. Merrem continues. 12/15/2017 the patient has had marked worsening of her status in that she had respiratory failure requiring reintubation and mechanical ventilation. She is now sedated and comfortable but has had some hemodynamic instability and is now back on vasopressor therapy. Bronchoscopy is performed and suctioning of mucous plugs as allowed some improvement of her pulmonary status. Further cultures are process. Meropenem and vancomycin continue for the isolated Serratia and concerns for resistant gram-positive infection at this time. Plastic surgery evaluation is in process and surgical plans for later this week appear to be possible. 12/16/2017 reveals the patient to be stable from the last 24 hours. Her ventilatory settings are similar. She's currently not on vasopressor therapy. She is tolerating current antibiotic therapy well with no difficulties with rash and diarrhea or marked changes of her hematological parameters. She's had no further active bleeding. Sputum culture with gram-positive cocci seen vancomycin was added we await final cultures. 12/20/2017 patient remained stable and is being prepped for her sternal reconstruction surgery tomorrow. She's not on vasopressor therapy, and vent settings are stable. Most recent bronchoscopy showed mucous plug no evidence of any new pathogens except yeast was found likely from upper airways. Fluconazole was added given her significant risks, although fungal pneumonia is not occurring at this time. At the time of reconstruction repeat samplings from her sternum will be helpful to help direct the course of antibiotic therapy , pathology and culture of the sternum will be helpful. Remains on the meropenem and vancomycin at this time. 12/21/2017 the patient is status post the sternal reconstruction with muscle flap, reportedly is only a partial closure at this time. However visit. The cardiac structure is completely covered. The patient is showing improvement in her cardiopulmonary status today. No active bleeding is noted. She is tolerating current antibiotic therapy well with meropenem and vancomycin. Await final culture and pathological data to help derive the course of her antibiotic therapy 12/23/2017 reveals the patient to be improved, she has been extubated and tolerating BiPAP well. The case is discussed with the cardiothoracic surgeon. The muscle flap was then performed and there is a biological skin substitute over the flap. She related that the plastic surgeon would not allow a wound VAC to be placed for approximately 10 days after the surgery. We will monitor. Continue current antibiotic therapy planning a multiweek course of therapy for the complex sternal wound infection. 12/24/2017 reveals the patient to have further improvement that she has had a tracheostomy placed. This will hopefully help her long-term weaning situation and also help with the nutritional difficulties. As she has improvement of her status hopefully the significant difference with her skin from the edema low albumin and blistering will improve. Receiving extensive antibiotic therapy for the sternal wound dehiscence will continue with the meropenem and vancomycin at this time. 12/25/2017 reveals the patient to have some improvement in the last 24 hours. She's doing well with a tracheostomy and is on 35% FiO2. Pain control is well at this point in time. Her spitting edema seems to be slightly improving and does not have as many blisters that she was having. Still does have anasarca but appears to be a bit less tight than she was a day ago. Her wounds are improving with the local wound care. Antibiotic therapy continues with meropenem and vancomycin for the sternal wound dehiscence and infection. Dressing changes have been per the cardiothoracic team to the chest wound. The abdominal wound is healing well and is having some serous drainage related to the anasarca. Hopefully with improving edema status and improve nutritional status anasarca will resolve. 12/27/2017 reveals a patient with further improvement. Her anasarca is improving and she is having less edema. She is tolerating the intravenous antibiotic therapy of meropenem and vancomycin for her sternal wound dehiscence. Leukocytosis in general is improved. No other new infections are noted. She had a wound VAC dressing change today of the sternal area. 12/28/2017 reveals the patient to have developed some bowel distention and concerns to ileus. She's been seen by general surgery. He will determine if she needs to have her Dobbhoff removed and an NG tube place. The patient has significant hypo albuminemia and is in need of the extensive supplementation, consequently TPN was requested per the surgeon. She will remain on her antibiotic therapy planning 6 weeks for the complex sternal dehiscence. Cardiothoracic surgery have changed her VAC dressing to her sternal wound. 12/29/2017 patient continues to tolerate antibiotic therapy well. Orders have been clarified for the 6 weeks of meropenem and vancomycin. cardiothoracic is in charge of the dressing changes to the complex sternal dehiscence wound. Tolerating TPN well with overall goal to improve her very low protein which will help her significant and extensive tissue edema. 12/30/2017 patient continues to have some improvement, if she is improving will likely go to select specialty for her long-term weaning of physical therapy.she is doing better from her ileus and TPN is being well-tolerated.will be on intravenous antibiotic therapy through 01/21/2018 12/31/2017 patient is stable at this time status post the NG tube has been placed for her ileus. Nutrition via TPN. Antibiotic therapy with the meropenem and vancomycin continues through 01/21/2018. Follow up cultures as indicated. Wound VAC is being changed as per cardiothoracic surgery. The pressure ulcerations to the buttocks area and posterior scalp are improving. Current Visit: Yes Status: Acute Code(s): T81.32XA - DISRUPTION OF INTERNAL OPERATION (SURGICAL) WOUND, NEC, INIT SNOMED Code(s): 24389031
[2018-01-01] MEDS: INSULIN ASPART 100 UNIT/ML 1 ML 10 ML VIAL SQ SCH ×4 (00:20→18:06)
[2018-01-01] MEDS: HEPARIN SODIUM,PORCINE 5,000 UNIT/ML 1 ML VIAL SQ SCH ×3 (00:20→17:01)
[2018-01-01 00:21] LABS: Glucose,Whole Blood 103 mg/dL (75-99)
[2018-01-01] MEDS: MEROPENEM 1 GM in SODIUM CHLORIDE 0.9% 100 ML IVPB SCH ×3 (00:22→17:01)
[2018-01-01] MEDS: METOCLOPRAMIDE 5 MG/ML 2 ML VIAL IVP SCH ×4 (00:23→18:03)
[2018-01-01] MEDS: IPRATROPIUM-ALBUTEROL 3 ML NEB INHALATION SCH ×6 (01:00→19:26)
[2018-01-01 04:42] LABS: Glucose,Whole Blood 104 mg/dL (75-99)
[2018-01-01 04:54] LABS: ABG Base Excess 10.7 mmol/L; ABG HCO3 34 mmol/L (21-25); ABG Oxygen Saturation 99.1 % (94-97); ABG PCO2 42 mmHg (35-45); ABG PH 7.51 (7.35-7.45); ABG PO2 111 mmHg (83-108); ABG TCO2 35 mmol/L (19-24)
[2018-01-01 05:23] LABS: Anisocytosis Slight; HGB 8.4 gm/dL (11.4-16.0); Hypochromasia Marked; MCH 26.9 pg (25.0-35.0); MCHC 30.9 g/dL (31.0-37.0); Mean Platelet Volume 7.3; Platelet Count 402 k/uL (150-450); Poikilocytosis Slight; RBC 3.11 m/uL (3.80-5.40); RDW 19.3 % (11.5-15.5); WBC 12.2 k/uL (3.8-10.6)
[2018-01-01 05:27] LABS: Calcium 9.7 mg/dL (8.4-10.2); Magnesium 2.4 mg/dL (1.6-2.3); Phosphorus 3.5 mg/dL (2.5-4.5); Potassium 4.1 mmol/L (3.5-5.1)
[2018-01-01] MEDS: DILTIAZEM ORAL 60 MG TAB PO SCH ×3 (06:29→21:04)
--- NOTE | 2018-01-01 06:51 | XR ---
EXAMINATION TYPE: XR chest 1V portable DATE OF EXAM: 01/01/2018 HISTORY: post cardiac surgery. REFERENCE: Previous study dated 12/31/2017. FINDINGS: There is a tracheostomy tube in place. Its tip overlies the tracheal air column in this sin gle frontal projection. There has been previous cardiac surgery and valvular replacement. The heart is enlarged. There is a small left effusion. There is vascular congestion and mild intersti tial change. There is left basilar airspace disease. IMPRESSION: CONTINUING CHANGES OF CONGESTIVE HEART FAILURE.
[2018-01-01] MEDS: BUDESONIDE 1 MG/2 ML NEBU INHALATION SCH ×2 (07:19→19:26)
--- NOTE | 2018-01-01 07:38 | P.PN ---
Subjective Progress Note Date: 01/01/18 Principal diagnosis: Severe mitral regurgitation. Coronary artery disease. Paroxysmal atrial fibrillation on Coumadin for anticoagulation. Recent hospitalization for lower GI bleed, duodenal ulcer. History of left subclavian stenosis with stent placement 2014 with recent discovery of critical re-in-stent stenosis. Previous tobacco dependence with preoperative FEV1 60% of predicted. Hypertension. Hyperlipidemia. Gallbladder disease. Family history of heart disease. Preoperative nasal swab positive for MRSA. Preoperative anemia. POD #37 mitral valve replacement using a 25 mm Ribera bioprosthetic tissue valve. Coronary artery bypass grafting 1, reverse saphenous vein graft to the obtuse marginal artery. Maze procedure. Endoscopic harvesting of the right greater saphenous vein. Epi-aortic ultrasound. Intraoperative transesophageal echocardiogram. Ligation of the left atrial appendage using a 40 mm AtriClip. Intraoperative left ventricular wall tear, an unexpected but potential outcome of surgery Acute blood loss anemia, and expected outcome given patient's preoperative anemia and intraoperative bleeding. Postoperative prolonged mechanical ventilation secondary to hemodynamic instability, and unexpected but potential outcome of surgery given the extensive nature of her perioperative course. POD #8 placement of a #8 Shiley nonfenestrated tracheostomy tube. Sternal incision dehiscence, a possible outcome of surgery given patient's obesity, nutrition status, debility POD #11 right rectus abdominous muscle flap closure, open sternal wound. Closure of sternal wound and muscle flap with skin graft substitute, 238 cm. Implantation of reconstructive graft for closure of abdominal wall wound, [address] Krause POD #22 sternal wound debridement with placement of wound VAC. Postoperative left lower lobe collapse secondary to mucous plugging, and unexpected but potential outcome of surgery. Bronchial washings positive for Rachana species. POD #17 bronchoscopy and bronchoalveolar lavage of the left lower lobe and extraction of mucous plug. Postoperative ileus, an unexpected but potential outcome of surgery. The patient's currently laying in bed in no acute distress. Denies pain, shortness of breath. Dobbhoff tube was pulled yesterday, NG-tube was placed with return of approximately 1 L of gastric fluid. Patient states she is less nauseous than yesterday. Wound VAC to sternum was changed yesterday. Objective - Vital Signs Vital signs: Vital Signs Temp 99.0 F 01/01/18 04:00 Pulse 145 H 01/01/18 07:00 Resp 20 03/31/18 07:00 BP 116/54 12/19/17 10:00 Pulse Ox 97 01/01/18 07:00 Intake & Output 12/31/17 01/01/18 01/01/18 18:59 06:59 18:59 Intake Total 2465 1144 77 Output Total 2355 1805 60 Balance 110 -661 17 Weight 99.8 kg 97.7 kg Intake: IV 914 1024 77 Dextrose 5%-0.45% NaCl 1, 110 120 10 000 ml @ 10 mls/hr IV . Q24H [facility] Rx#:[id number] Meropenem 1 gm In Sodium 100 Chloride 0.9% 100 ml @ 200 mls/hr IVPB Q8HR [facility] Rx#:[id number] Mvi, Adult No.4 with Vit 768 768 64 K 10 ml Trace (Conc-1Ml/ Dose) 1 ml In Foote 3.3%/ Dex 9.8%/Lipid/Lytes 1, 540 ml @ 64 mls/hr IV . Q24H [facility] Rx#:[id number] Pressure Bag 36 36 3 Intake, IV Titration 1551 Amount Mvi, Adult No.4 with Vit 1551 K 10 ml Trace (Conc-1Ml/ Dose) 1 ml In Foote 3.3%/ Dex 9.8%/Lipid/Lytes 1, 540 ml @ 64 mls/hr IV . Q24H [facility] Rx#:[id number] Tube Feeding 0 0 Other 120 Output: Gastric Drainage 950 600 Drainage 595 355 25 Medial Chest Incision - 100 Woundvac Right Abdomen 495 355 25 Urine 810 850 35 Other: Voiding Method Indwelling Catheter Indwelling Catheter ABP, PAP, CO, CI - Last Documented Arterial Blood Pressure 97/63 Pulmonary Artery Pressure 38/33 Cardiac Output 5.8 Cardiac Index 2.9 - Constitutional General appearance: Present: cooperative, no acute distress, obese - Respiratory Details: Lungs sounds diminished bilaterally. Respirations even, nonlabored. Currently on mechanical ventilation, settings assist control mode, FiO2 35%, tidal by 400 , respiratory rate 20, PEEP 5. ABGs this morning 7.51/42/111/34/10.7/99% on 35 % FiO2. #8 Shiley tracheostomy tube present. - Cardiovascular Details: S1, S2 present. Regular rate and rhythm, rapid atrial flutter on telemetry. Open chest with wound VAC in place. Palpable peripheral pulses bilaterally. Bilateral lower extremity edema present. pain or tenderness noted. Vance wraps to her lower extremities, toes to knees. SCDs present. - Gastrointestinal Gastrointestinal Comment(s): Abdomen soft, nontender, slightly distended, obese. Active bowel sounds 3 quadrants, left lower quadrant hypoactive bowel sounds. Tympanic sounds over entire abdomen, more so over the left upper quadrant. NG tube to low intermittent suction, 125 mL green drainage overnight. - Genitourinary Genitourinary Comment(s): Mason present draining clear, yellow urine. Output is 30-45 mL per hour overnight, excellent diuresis after Lasix given yesterday. - Integumentary Integumentary Comment(s): Anterior chest open with wound VAC in place to suction. Hospital portion of her head has a small area of eschar with no drainage. Lower back his pressure ulcer with local wound care. Skin tears on right arm which opened due to weeping edema are covered with silver dressing. Area of skin tear to left upper inner thigh present secondary to weeping edema. - Neurologic Neurologic: Present: CNII-XII intact - Musculoskeletal Musculoskeletal: Present: generalized weakness - Psychiatric Psychiatric: Present: A&O x's 3, appropriate affect, intact judgment & insight - Allied health notes Allied health notes reviewed: nursing - Labs CBC & Chem 7: 01/01/18 04:45 01/01/18 04:45 Labs: Abnormal Lab Results - Last 24 Hours (Table) 12/31/17 12/31/17 01/01/18 Range/Units 11:58 18:13 00:19 WBC (3.8-10.6) k/uL RBC (3.80-5.40) m/uL Hgb (11.4-16.0) gm/dL Hct (34.0-46.0) % MCHC (31.0-37.0) g/dL RDW (11.5-15.5) % ABG pH (7.35-7.45) ABG pO2 (83-108) mmHg ABG HCO3 (21-25) mmol/L ABG Total CO2 (19-24) mmol/L ABG O2 Saturation (94-97) % Carbon Dioxide (22-30) mmol/L BUN (7-17) mg/dL Glucose (74-99) mg/dL POC Glucose (mg/dL) 123 H 118 H 103 H (75-99) mg/dL Magnesium (1.6-2.3) mg/dL 01/01/18 01/01/18 01/01/18 Range/Units 04:40 04:45 04:45 WBC 12.2 H (3.8-10.6) k/uL RBC 3.11 L (3.80-5.40) m/uL Hgb 8.4 L (11.4-16.0) gm/dL Hct 27.0 L (34.0-46.0) % MCHC 30.9 L (31.0-37.0) g/dL RDW 19.3 H (11.5-15.5) % ABG pH (7.35-7.45) ABG pO2 (83-108) mmHg ABG HCO3 (21-25) mmol/L ABG Total CO2 (19-24) mmol/L ABG O2 Saturation (94-97) % Carbon Dioxide 32 H (22-30) mmol/L BUN 39 H (7-17) mg/dL Glucose 108 H (74-99) mg/dL POC Glucose (mg/dL) 104 H (75-99) mg/dL Magnesium 2.4 H (1.6-2.3) mg/dL 01/01/18 Range/Units 04:50 WBC (3.8-10.6) k/uL RBC (3.80-5.40) m/uL Hgb (11.4-16.0) gm/dL Hct (34.0-46.0) % MCHC (31.0-37.0) g/dL RDW (11.5-15.5) % ABG pH 7.51 H (7.35-7.45) ABG pO2 111 H (83-108) mmHg ABG HCO3 34 H (21-25) mmol/L ABG Total CO2 35 H (19-24) mmol/L ABG O2 Saturation 99.1 H (94-97) % Carbon Dioxide (22-30) mmol/L BUN (7-17) mg/dL Glucose (74-99) mg/dL POC Glucose (mg/dL) (75-99) mg/dL Magnesium (1.6-2.3) mg/dL - Imaging and Cardiology Chest x-ray: report reviewed, image reviewed Assessment and Plan (1) Acute blood loss anemia Current Visit: Yes Status: Acute Code(s): D62 - ACUTE POSTHEMORRHAGIC ANEMIA SNOMED Code(s): 468078763 (2) CAD (coronary artery disease) Current Visit: Yes Status: Chronic Code(s): I25.10 - ATHSCL HEART DISEASE OF [place] CORONARY ARTERY W/O ANG PCTRS SNOMED Code(s): 63308055 (3) Hyperlipidemia Current Visit: Yes Status: Chronic Code(s): E78.5 - HYPERLIPIDEMIA, UNSPECIFIED SNOMED Code(s): 47088679 (4) Hypertension Current Visit: Yes Status: Chronic Code(s): I10 - ESSENTIAL (PRIMARY) HYPERTENSION SNOMED Code(s): 58045249 (5) Severe mitral regurgitation Current Visit: Yes Status: Chronic Code(s): I34.0 - NONRHEUMATIC MITRAL ( VALVE) INSUFFICIENCY SNOMED Code(s): 61828240 (6) Stenosis of left subclavian artery Current Visit: Yes Status: Chronic Code(s): I77.1 - STRICTURE OF ARTERY SNOMED Code(s): 40923390565443635 (7) Paroxysmal atrial fibrillation Current Visit: No Status: Resolved Code(s): I48.0 - PAROXYSMAL ATRIAL FIBRILLATION SNOMED Code(s): 417299951 (8) History of GI bleed Current Visit: No Status: Resolved Code(s): Z87.19 - PERSONAL HISTORY OF OTHER DISEASES OF THE DIGESTIVE SYSTEM SNOMED Code(s): 084978528 (9) Family history of coronary artery disease Current Visit: Yes Status: Chronic Code(s): Z82.49 - FAMILY HX OF ISCHEM HEART DIS AND OTH DIS OF THE CIRC SYS SNOMED Code(s): 494605250 (10) Ileus, postoperative Current Visit: Yes Status: Acute Code(s): K91.89 - OTH POSTPROCEDURAL COMPLICATIONS AND DISORDERS OF DGSTV SYS; K56.7 - ILEUS, UNSPECIFIED SNOMED Code(s): 227805145 (11) Pressure ulcer of contiguous region involving back and buttock, stage 3 Current Visit: Yes Status: Acute Code(s): L89.43 - PRESSR ULCER OF CONTIG SITE OF BACK, BUTTOCK AND HIP, STG 3 SNOMED Code(s): 450581927 (12) Sternal wound dehiscence Current Visit: Yes Status: Acute Code(s): T81.32XA - DISRUPTION OF INTERNAL OPERATION (SURGICAL) WOUND, NEC, INIT SNOMED Code(s): 34595359 Plan: 1. Continue baby aspirin, statin, subcu heparin, beta krunal. Will increase beta krunal therapy as tolerated. 2. Continue amiodarone for atrial fibrillation prophylaxis. No further IV amiodarone. Dr. Crawley is aware of the patient's continued heart rate/rhythm. No cardioversion as we cannot anticoagulate at this time. 3. Continue Cardizem for rate control. 4. Ventilator management per pulmonology. Wean as tolerated. 5. Continue meropenem, Vanco per Dr. Olivera. 6. Will monitor labs, chest x-rays. 7. Bronchodilators per pulmonology. 8. Will hold off on Coumadin as patient will need for future surgery for chest closure, possible PEG. No IV heparin. 9. GI/DVT prophylaxis. 10. Increase activity. PT/OT/cardiac rehab following. 11. Hold tube feedings for now, Gen. surgery managing. Keep NG tube to low intermittent suction. Continue TPN. No contraindication to PEG tube placement per Dr. Krause. 12. Continue IV Reglan every 6 hours, lactulose 3 times a day per general surgery to stimulate bowel. 13. Keep Mason for strict accurate intake and output. Change out every 7 days. 14. Wound VAC to be changed on Wednesday, Wednesday, and Wednesday by nurse practitioner. Changed yesterday, wound measures 12 cm x 14.5 cm x 1 cm. 15. Local wound care to back of head and lower back. Will add Silvadene for left upper thigh skin tear. 16. More recommendations as patient progresses. Patient will need evaluation for select specialty for discharge. Time with Patient: Greater than 30
[2018-01-01] MEDS ORDERED: VANCOMYCIN TROUGH DUE 1 EACH MISC MISCELLANE ONE (08:00)
[2018-01-01] MEDS ORDERED: FUROSEMIDE 10 MG/ML 4 ML VIAL IV STA (08:21)
[2018-01-01] MEDS ORDERED: ALBUMIN HUMAN 25% 50 ML in EMPTY BAG 1 BAG IVPB ONE (08:21)
[2018-01-01] MEDS: BENZOCAINE SPRAY 1 CAN MUCOUS MEM PRN ×2 (09:13→21:27)
[2018-01-01] MEDS: METOPROLOL TARTRATE 50 MG TAB NG-TUBE SCH ×2 (09:57→21:06)
[2018-01-01] MEDS: DEXTROSE 5%-0.45% NACL 1,000 ML IV SCH (09:57)
[2018-01-01] MEDS: LACTOBACILLUS ACIDOPH & BULGAR 1 EACH PACKET PO SCH ×3 (09:59→21:04)
[2018-01-01] MEDS: ATORVASTATIN 40 MG TAB PO SCH (09:59)
[2018-01-01] MEDS: LACTULOSE 20 GM/30 ML CUP PO SCH (09:59)
[2018-01-01] MEDS: ASPIRIN 81 MG PO SCH (10:00)
[2018-01-01] MEDS: PANTOPRAZOLE 40 MG TABLET PO SCH (10:00)
[2018-01-01] MEDS: AMIODARONE 200 MG TAB PO SCH ×2 (10:00→21:03)
[2018-01-01] MEDS: VANCOMYCIN 1,500 MG in SODIUM CHLORIDE 0.9% 250 ML IVPB SCH (10:33)
--- NOTE | 2018-01-01 10:39 | P.PN ---
Subjective Progress Note Date: 01/01/18 Principal diagnosis: Status post open heart This is a pleasant 67-year-old female patient who sees Dr. Crawley as an outpatient who underwent an open heart surgery where she had CABG 1 associated with mitral valve replacement and maze procedure, with a postoperative course was complex and complicated by respiratory failure, chest incision dehiscence, where the patient did have to go to the OR again and have another surgery. Currently the patient is in chronic respiratory failure and she does have a tracheostomy She is also in congestive heart failure and fluid overload. beside that she is in persistent atrial flutter with a heart rate of 145 bpm continuously. The blood pressure has been marginally low. Currently she is on metoprolol, Cardizem, and she is on amiodarone by mouth. She is not on any anticoagulation for multiple reasons including bleeding and possible going to the OR again regarding the wound. I do feel that the patient might benefit from cardioversion. I am going to contact Dr. Crawley. Objective - Vital Signs Vital signs: Vital Signs Temp 99.0 F 01/01/18 04:00 Pulse 145 H 01/01/18 07:00 Resp 20 01/01/18 07:00 BP 116/54 12/19/17 10:00 Pulse Ox 97 01/01/18 07:00 Intake & Output 12/31/17 01/01/18 01/01/18 18:59 06:59 18:59 Intake Total 2465 1144 77 Output Total 2355 1805 185 Balance 110 -661 -108 Weight 99.8 kg 97.7 kg Intake: IV 914 1024 77 Dextrose 5%-0.45% NaCl 1, 110 120 10 000 ml @ 10 mls/hr IV . Q24H [facility] Rx#:[id number] Meropenem 1 gm In Sodium 100 Chloride 0.9% 100 ml @ 200 mls/hr IVPB Q8HR [facility] Rx#:[id number] Mvi, Adult No.4 with Vit 768 768 64 K 10 ml Trace (Conc-1Ml/ Dose) 1 ml In Foote 3.3%/ Dex 9.8%/Lipid/Lytes 1, 540 ml @ 64 mls/hr IV . Q24H [facility] Rx#:[id number] Pressure Bag 36 36 3 Intake, IV Titration 1551 Amount Mvi, Adult No.4 with Vit 1551 K 10 ml Trace (Conc-1Ml/ Dose) 1 ml In Foote 3.3%/ Dex 9.8%/Lipid/Lytes 1, 540 ml @ 64 mls/hr IV . Q24H [facility] Rx#:[id number] Tube Feeding 0 0 Other 120 Output: Gastric Drainage 950 600 125 Drainage 595 355 25 Medial Chest Incision - 100 Woundvac Right Abdomen 495 355 25 Urine 810 850 35 Other: Voiding Method Indwelling Catheter Indwelling Catheter ABP, PAP, CO, CI - Last Documented Arterial Blood Pressure 97/63 Pulmonary Artery Pressure 38/33 Cardiac Output 5.8 Cardiac Index 2.9 - Constitutional General appearance: Present: mild distress - Respiratory Respiratory: bilateral: diminished - Cardiovascular Rhythm: regular Heart sounds: normal: S1, S2 - Labs CBC & Chem 7: 01/01/18 04:45 01/01/18 04:45 Labs: Abnormal Lab Results - Last 24 Hours (Table) 12/31/17 12/31/17 01/01/18 Range/Units 11:58 18:13 00:19 WBC (3.8-10.6) k/uL RBC (3.80-5.40) m/uL Hgb (11.4-16.0) gm/dL Hct (34.0-46.0) % MCHC (31.0-37.0) g/dL RDW (11.5-15.5) % ABG pH (7.35-7.45) ABG pO2 (83-108) mmHg ABG HCO3 (21-25) mmol/L ABG Total CO2 (19-24) mmol/L ABG O2 Saturation (94-97) % Carbon Dioxide (22-30) mmol/L BUN (7-17) mg/dL Glucose (74-99) mg/dL POC Glucose (mg/dL) 123 H 118 H 103 H (75-99) mg/dL Magnesium (1.6-2.3) mg/dL 01/01/18 01/01/18 01/01/18 Range/Units 04:40 04:45 04:45 WBC 12.2 H (3.8-10.6) k/uL RBC 3.11 L (3.80-5.40) m/uL Hgb 8.4 L (11.4-16.0) gm/dL Hct 27.0 L (34.0-46.0) % MCHC 30.9 L (31.0-37.0) g/dL RDW 19.3 H (11.5-15.5) % ABG pH (7.35-7.45) ABG pO2 (83-108) mmHg ABG HCO3 (21-25) mmol/L ABG Total CO2 (19-24) mmol/L ABG O2 Saturation (94-97) % Carbon Dioxide 32 H (22-30) mmol/L BUN 39 H (7-17) mg/dL Glucose 108 H (74-99) mg/dL POC Glucose (mg/dL) 104 H (75-99) mg/dL Magnesium 2.4 H (1.6-2.3) mg/dL 01/01/18 Range/Units 04:50 WBC (3.8-10.6) k/uL RBC (3.80-5.40) m/uL Hgb (11.4-16.0) gm/dL Hct (34.0-46.0) % MCHC (31.0-37.0) g/dL RDW (11.5-15.5) % ABG pH 7.51 H (7.35-7.45) ABG pO2 111 H (83-108) mmHg ABG HCO3 34 H (21-25) mmol/L ABG Total CO2 35 H (19-24) mmol/L ABG O2 Saturation 99.1 H (94-97) % Carbon Dioxide (22-30) mmol/L BUN (7-17) mg/dL Glucose (74-99) mg/dL POC Glucose (mg/dL) (75-99) mg/dL Magnesium (1.6-2.3) mg/dL Assessment and Plan Assessment: Assessment #1 respiratory failure #2 status post open heart and status post CABG and mitral valve replacement #3 persistent atrial flutter #4 congestive heart failure #5 sternal wound infection #6 peripheral vascular disease and known left subclavian stenosis #7 multiple comorbid conditions Plan #1 continue the Lasix IV #2 the patient's need to have cardioversion #3 continue monitor the kidney function and electrolytes #4 follow-up with the patient.
--- NOTE | 2018-01-01 11:54 | P.PN ---
Subjective Progress Note Date: 01/01/18 A 67-year-old female patient was being seen in follow-up in the intensive care unit. The patient is postop day #32 following her cardiac surgery. The patient underwent a one-vessel bypass surgery and mitral valve replacement and I 'm seeing her today in follow-up. Events postop were all noted and I was updated by the nursing staff regarding details on her progress. The patient underwent a surgical flap of the sternal wound as the patient had wound dehiscence and infection and she is currently postop day #6. The patient also has a tracheostomy tube in place and the patient is postop day #3 post trach. The previous cultures have indicated Serratia marcescens and the patient remains on IV Merrem. Note that during the course of her ICU stay the patient developed complete left lung collapse and she required bronchoscopy and the sputum has indicated Rachana. She is also on Diflucan. The patient also has a tracheostomy tube in place and the patient is postop day #3 post trach. T This morning, the patient is awake and alert. She is following commands and answering questions. She is an assist-control mode of ventilation. The patient is being given brief trials with pressure support and she initially started tolerating pressure support for one hour then subsequently 2 hours. She is not ready for further weaning or prolonged periods where she is placed on pressure support. Currently she is on a assist-control mode at the rate of 20 with tidal volume 400, and 35% FiO2 with a PEEP of 5. She has a tracheostomy tube which is a Shiley trach tube #8. Surgical wound site on the tracheostomy tube is clean. The patient is not having significant orotracheal secretions. The patient is a bit tachypneic as her abdomen is somewhat distended on today's evaluation. I can't understand that the patient was throwing up throughout the night. Her abdomen is somewhat distended and tympanic. She is producing some loose bowel movements. The patient had a Dobbhoff catheter for enteral feeding and nutritional support. The feeding was stopped this morning. She is not complaining of any abdominal pain however abdomen is distended. On today's chest x-ray there is a large gastric bubble. There is also small bilateral pleural. Effusions. She has underlying cardiomegaly. Sternum stable clean and intact. The HENRI drain in the sternal wound is still in place. Her blood gases from today showed a pH of 7.37 with a pCO2 of 57 and pO2 of 102. Patient continues to be edematous in the upper and lower extremity more so in the legs. The patient is being diuresis with Lasix. The patient is a negative fluid balance of 471 mL over the past 24 hours. The patient is on no pressors. Cardiac rhythm is sinus rhythm. On 12/28/2017 the patient is being seen for a follow-up. The patient is wide awake and alert. She remains on a mechanical ventilator. She is on a assist- control mode of ventilation. The patient has a tracheostomy tube #8 Shiley. The patient is in a rate of 20, tidal volume 400, FiO2 of 35% and a PEEP of 5. Chest x-ray findings are stable. remains distended and tympanic. The patient is an underlying ileus. The tube feeds have been placed on hold. The Dobbhoff is attached to suction. The follow-up abdominal film showed Marked dilation of the small bowel loop and this is consistent with ileus. The patient is currently off tube feeds. Meanwhile, the patient's weaning parameters today at baseline showed a rapid shallow breathing index of 86 with a vital Of 450-480. The patient is not ready for any weaning trials at this point. Meanwhile, we' ll continue supportive care. The patient's wound VAC over the anterior chest has gained approximately 1160 MO's for this current shift. The abdominal wound drainage is quite extensive. It drained approximately 2000 MO's of serosanguineous fluid and over the past 8 hours it drained around 1178 ML's. The patient remains on a combination of antibiotics. The patient is receiving a combination of vancomycin and Merrem. The antibiotic coverage is mainly for sternal wound infection/dehiscence. The wound VAC is been applied to the sternal area. No fever. No leukocytosis and no hypotension. No other complaints otherwise. Hemoglobin is low at 7.0. On 12/29/2017 and I'm seeing this patient for a follow-up. She remains nothing by mouth. Abdomen is less distended compared to yesterday. Dobbhoff is in place. The patient was started on lactulose. She was producing some limited amount of bowel moments which was liquidy. Nevertheless the bowel sounds are very sluggish on today's evaluation. She is in a sitting up position in her bed. She assist-control mode of ventilation and I was able to put on a pressure support of 10 and PEEP of 5 for few hours this morning. Her FiO2 is remains at 35%. She still has a wound VAC over the anterior chest and she also has a drain in her right lower abdominal wall which is draining extensively. The patient remains on the same antibiotic coverage. I came to realize that Merrem was taken off the list accidentally by the computer system and I had to resume the mammogram again in conjunction with vancomycin. The patient will need long-term antibiotic treatment for sternal wound infection. This was again confirmed with infectious disease. The patient's hemoglobin today is at 7.2. The patient has no fever. No chills. No leukocytosis. No altered mentation. His communicating. She is weak and she continues to have some edematous upper and lower extremities. She was started on TPN for nutritional support. General surgeries on the case regarding her abdominal ileus. On 12/30/2017, the patient is awake and alert. She is an assist-control mode of ventilation. She tolerated a 1 hour of pressure support ventilation yesterday following with she became short of breath and tachycardic and this had to be aborted. She remained hemodynamically stable however last night she went into a flutter with rapid ventricular response at the rate of 1:30. She remains on a combination of metoprolol and amiodarone. No chest pain. She is producing adequate amount of urine output. She still has an abdominal ileus. Bowel sounds are hypoactive. She is passing bowel movements and the Dobbhoff still in place. TPN was initiated for nutritional support. The wound VAC is in place. The HENRI drain in the right upper abdomen is also in place. She is afebrile. She is moving all 4 extremities. Still weak yet in good spirits. On 12/31/2017 seeing this patient for a follow-up. Unfortunately her condition is still the same. She remains to have abdominal distention and ileus. The flat film of the abdomen done today showed has filled loops of bowel without evidence of pneumoperitoneum. Dobbhoff is present. The stomach is also distended and the findings are compatible with ileus. The patient was trialed on a trickle feed yesterday however she failed as earlier this morning the patient got nauseated and the feeding had to be stopped this morning. She still burping and she is also passing gas from her rectum. She has distended. Her abdomen is tympanic. Had a lengthy discussion with the general surgeon. Not a candidate for PEG tube insertion and our final recommendation was to remove the Dobbhoff and the site her stomach by irregular NG tube. This will be done at the bedside. Also the patient remains in atrial flutter with rapid ventricular response at the rate of 140. Cardiology was informed. They want to continue the same treatment with increase of the amiodarone dose up to 200 mg by mouth twice a day and the patient is on a combination of Cardizem and metoprolol. She remains hemodynamically stable and she is producing adequate amount of urine output. The wound VAC is in place. The HENRI drain from the right abdominal wound is still active. She is awake and alert. She remains on assist control mode of ventilation. Chest x-ray from today shows no acute abnormalities and the findings are essentially stable. Blood gases showed a pH of 7.44 with a pCO2 of 48 and pO2 of 109. The patient is receiving TPN for nutritional support. Edema in the upper and lower extremities are also improving. On 01/01/2018 I'm seeing this patient for a follow-up. The events from yesterday were old noted and recorded in the chart. The active issue was the abdominal distention and ileus. The patient had a Dobbhoff and she was not tolerating the enteral feeding which got discontinued. She remained and ileus. I was able to remove the top of any inserted regular NG tube catheter and immediately more than a liter of fluid was aspirated from the stomach. She produced another 700 mL following that. Abdomen is less distended on today's evaluation. She seems to be more comfortable. Another active problem isn't ongoing atrial flutter. The patient has not responded to any of the medications given. She is currently on oral amiodarone, oral Cardizem, and oral metoprolol. Cardioverted in has not been performed that there is a concern that the patient may embolize and she is not on any form of anticoagulation for now. Meanwhile, there was VAC is being replaced 3 times a week and the drainage from the wound VAC is approximately 100 mL over the past day. The HENRI drain is still active on the right abdominal wound that is draining approximately 40 mL an hour. She is afebrile. She remains in same antibiotic coverage. She is receiving TPN for discharge support. She is an assist-control mode of ventilation. No attempts to wean as the patient is still quite weak, still on ileus and still having atrial flutter at an increased rate. Chest x-ray still showing some small effusions and mild degree of pulmonary vascular congestion and cardiomegaly. Tracheostomy is in place. She is awake and alert. She is still weak due to the above-mentioned comorbidities. The pH today is at 7.51 with a pCO2 of 42 and pO2 of 111 and this was done and assist-control mode at the rate of 20 with a tidal volume of 400 and FiO2 of 35% with a PEEP of 5. White cell count is not elevated at 12.2. Creatinine is stable at 0.9. Objective - Vital Signs Vital signs: Vital Signs Temp 98.1 F 01/01/18 08:00 Pulse 147 H 01/01/18 11:43 Resp 20 01/01/18 11:00 BP 116/54 12/19/17 10:00 Pulse Ox 96 01/01/18 11:00 Intake & Output 12/31/17 01/01/18 01/01/18 18:59 06:59 18:59 Intake Total 2465 1144 785 Output Total 2355 1805 405 Balance 110 -661 380 Weight 99.8 kg 97.7 kg Intake: IV 914 1024 785 Albumin Human 25% 50 ml 50 In Empty Bag 1 bag @ 100 mls/hr IVPB ONCE ONE Rx#: [id number] Dextrose 5%-0.45% NaCl 1, 110 120 50 000 ml @ 10 mls/hr IV . Q24H [facility] Rx#:[id number] Meropenem 1 gm In Sodium 100 100 Chloride 0.9% 100 ml @ 200 mls/hr IVPB Q8HR [facility] Rx#:[id number] Mvi, Adult No.4 with Vit 768 768 320 K 10 ml Trace (Conc-1Ml/ Dose) 1 ml In Foote 3.3%/ Dex 9.8%/Lipid/Lytes 1, 540 ml @ 64 mls/hr IV . Q24H [facility] Rx#:[id number] Pressure Bag 36 36 15 Vancomycin 1,500 mg In 250 Sodium Chloride 0.9% 250 ml @ 125 mls/hr IVPB Q36H [facility] Rx#:[id number] Intake, IV Titration 1551 Amount Mvi, Adult No.4 with Vit 1551 K 10 ml Trace (Conc-1Ml/ Dose) 1 ml In Foote 3.3%/ Dex 9.8%/Lipid/Lytes 1, 540 ml @ 64 mls/hr IV . Q24H [facility] Rx#:[id number] Tube Feeding 0 0 Other 120 Output: Gastric Drainage 950 600 125 Drainage 595 355 85 Medial Chest Incision - 100 Woundvac Right Abdomen 495 355 85 Urine 810 850 195 Other: Voiding Method Indwelling Catheter Indwelling Catheter ABP, PAP, CO, CI - Last Documented Arterial Blood Pressure 102/68 Pulmonary Artery Pressure 38/33 Cardiac Output 5.8 Cardiac Index 2.9 - Exam - Constitutional General appearance: Present: cooperative, no acute distress, obese, the patient has a #8 tracheostomy Shiley trach tube in place. She is synchronous with the mechanical ventilator. She is awake and interactive. - Neck Details: Neck is supple, no JVD, no lymphadenopathy. Tracheostomy tube is midline and intact, sutures in place. - Respiratory Details: Lungs sounds essentially diminished throughout. Respirations are symmetrical and nonlabored with mechanical ventilator support. Oxygen saturation are 99% with current ventilator settings. Current ventilator settings is an assist- control: Cycle ventilator - Cardiovascular Details: Pain is tachycardic at regular rate and rhythm seems to be regular. This may be a a flutter with 2 to one block. S1 and S2 present, negative for S3 , gallop or murmur. Chest with open wound, postoperative muscle flap performed. The patient has a one leg applied to the anterior chest Dressing with scant serous drainage. Generalized anasarca with weeping. Vance wraps in place from toes to thighs to bilateral lower extremities. The patient is wound VAC and drained 1000 mL since yesterday and the right abdominal HENRI has drained 40cc/hr yesterday. PICC line is also in place. - Gastrointestinal Gastrointestinal Comment(s): Abdomen is soft, yet this is distended and tympanic. The patient had diminished bowel sounds. No direct tenderness but no rebound tenderness. No guarding. Abdominal wound is dry clean and intact. The patient has a HENRI drain in the lower abdominal wall which is draining quite extensively. The patient's abdomen is tympanic and distended for now consistent with ileus. - Genitourinary Genitourinary Comment(s): Mason catheter for accurate I&O. Draining clear yellow urine. - Integumentary Integumentary Comment(s): Skin is warm and dry. No clubbing or cyanosis. Anasarca with scattered areas of blistering and weeping thin serous drainage. Pressure ulcerations to her buttocks with local wound care. Ulceration to her right wrist area with dressing in place with scant serous drainage. Dressing in place to her chest wound. - Neurologic Neurologic Comment(s): Alert and following verbal commands. Nodding her head yes and no appropriately to questions. Moving all 4 extremities appropriately with weak movements. - Musculoskeletal Musculoskeletal: Present: generalized weakness, strength equal bilaterally - Psychiatric Psychiatric Comment(s): Psychiatric: Present: intact judgment & insight - Labs CBC & Chem 7: 01/01/18 04:45 01/01/18 04:45 Labs: Abnormal Lab Results - Last 24 Hours (Table) 12/31/17 12/31/17 01/01/18 Range/Units 11:58 18:13 00:19 WBC (3.8-10.6) k/uL RBC (3.80-5.40) m/uL Hgb (11.4-16.0) gm/dL Hct (34.0-46.0) % MCHC (31.0-37.0) g/dL RDW (11.5-15.5) % ABG pH (7.35-7.45) ABG pO2 (83-108) mmHg ABG HCO3 (21-25) mmol/L ABG Total CO2 (19-24) mmol/L ABG O2 Saturation (94-97) % Carbon Dioxide (22-30) mmol/L BUN (7-17) mg/dL Glucose (74-99) mg/dL POC Glucose (mg/dL) 123 H 118 H 103 H (75-99) mg/dL Magnesium (1.6-2.3) mg/dL 01/01/18 01/01/18 01/01/18 Range/Units 04:40 04:45 04:45 WBC 12.2 H (3.8-10.6) k/uL RBC 3.11 L (3.80-5.40) m/uL Hgb 8.4 L (11.4-16.0) gm/dL Hct 27.0 L (34.0-46.0) % MCHC 30.9 L (31.0-37.0) g/dL RDW 19.3 H (11.5-15.5) % ABG pH (7.35-7.45) ABG pO2 (83-108) mmHg ABG HCO3 (21-25) mmol/L ABG Total CO2 (19-24) mmol/L ABG O2 Saturation (94-97) % Carbon Dioxide 32 H (22-30) mmol/L BUN 39 H (7-17) mg/dL Glucose 108 H (74-99) mg/dL POC Glucose (mg/dL) 104 H (75-99) mg/dL Magnesium 2.4 H (1.6-2.3) mg/dL 01/01/18 Range/Units 04:50 WBC (3.8-10.6) k/uL RBC (3.80-5.40) m/uL Hgb (11.4-16.0) gm/dL Hct (34.0-46.0) % MCHC (31.0-37.0) g/dL RDW (11.5-15.5) % ABG pH 7.51 H (7.35-7.45) ABG pO2 111 H (83-108) mmHg ABG HCO3 34 H (21-25) mmol/L ABG Total CO2 35 H (19-24) mmol/L ABG O2 Saturation 99.1 H (94-97) % Carbon Dioxide (22-30) mmol/L BUN (7-17) mg/dL Glucose (74-99) mg/dL POC Glucose (mg/dL) (75-99) mg/dL Magnesium (1.6-2.3) mg/dL Assessment and Plan Plan: Assessment 1 coronary artery bypass surgery with single-vessel bypass and mitral valve replacement/bioprosthetic valve. The patient is postop day #37 2 sternal wound infection with Serratia marcescens with subsequent dehiscence. The patient underwent wound debridement with subsequent muscle flap and the patient is postop day #11. The patient remains on a combination of Merrem and vancomycin. The wound VAC is still in place 3 prolonged ventilator dependent respiratory failure, status post tracheostomy tube insertion and the patient is postop day #8. Patient remains on assist control mode of ventilation . Weaning parameters that point the patient is not ready for further weaning at this point. 4 acute on chronic respiratory failure, multifactorial. The patient's sternal wound and the muscle flap is healing for now. She is weak and she is not ready for further weaning based on her daily parameters. Doubt superimposed pneumonia at this point 5 increased edema both upper and lower extremities, improving 6 tachycardia with an a flutter rhythm, cardiology is on the case. She is mainly maintained on oral medications. No plans to cardiovert per cardiology 7 peripheral vascular disease 8 left subclavian artery stenosis status post insertion of an endovascular stent 9 anemia, a expected outcome of prolonged ICU stay and multiple surgeries 10 ileus, abdominal distention with increased emesis. She is on TPN for nutritional support. NG tube is in place. It is attached to low intermittent suction. Abdomen is much less distended compared to yesterday and she feels more comfortable in terms of her GI symptoms. 11 left lung collapse status post bronchoscopy and therapeutic it was suctioning. Patient has Rachana within the sputum currently on Diflucan 12 hypertension 13 hyperlipidemia 14 anemia multifactorial with a hemoglobin level of 8.4 PLAN Keep the patient nothing by mouth. Keep the NG tube in place. Low intermittent suction. Reglan for bowel motility. Vent support and no weaning trials for today. Monitor the cardiac rhythm and consider cardioversion following a NILDA if this is acceptable by cardiology. Continue TPN furniture support. One VAC. HENRI drains in place. We'll continue to follow. Condition still very critical. Prognosis poor baseline above-mentioned comorbidities. Evaluation was done and 32 minutes. Time with Patient: Greater than 30
[2018-01-01] MEDS: BISACODYL 10 MG SUPP RECTAL SCH (12:43)
[2018-01-01 14:34] LABS: Glucose,Whole Blood 109 mg/dL (75-99)
--- NOTE | 2018-01-01 14:35 | P.PN ---
Progress Note - Text Progress Note Date: 01/01/18 Patient seen and evaluated. She had just passed flatus and had a large bowel movement. She is surrounded by family. Ileus is resolving. May restart tube feeds.
--- NOTE | 2018-01-01 17:36 | P.PN ---
Subjective Progress Note Date: 01/01/18 The patient is a 67-year-old female with protracted course following cardiac surgery. She has long-standing ileus. She has been on TPN. Additionally, she is status post tracheostomy. She had just passed flatus and had a large bowel movement. She is surrounded by family. Objective - Vital Signs Vital signs: Vital Signs Temp 98.1 F 01/01/18 08:00 Pulse 147 H 01/01/18 11:43 Resp 20 01/01/18 11:00 BP 116/54 12/19/17 10:00 Pulse Ox 96 01/01/18 11:00 Intake & Output 12/31/17 01/01/18 01/01/18 18:59 06:59 18:59 Intake Total 2465 1144 785 Output Total 2355 1805 405 Balance 110 -661 380 Weight 99.8 kg 97.7 kg Intake: IV 914 1024 785 Albumin Human 25% 50 ml 50 In Empty Bag 1 bag @ 100 mls/hr IVPB ONCE ONE Rx#: [id number] Dextrose 5%-0.45% NaCl 1, 110 120 50 000 ml @ 10 mls/hr IV . Q24H [facility] Rx#:[id number] Meropenem 1 gm In Sodium 100 100 Chloride 0.9% 100 ml @ 200 mls/hr IVPB Q8HR [facility] Rx#:[id number] Mvi, Adult No.4 with Vit 768 768 320 K 10 ml Trace (Conc-1Ml/ Dose) 1 ml In Foote 3.3%/ Dex 9.8%/Lipid/Lytes 1, 540 ml @ 64 mls/hr IV . Q24H [facility] Rx#:[id number] Pressure Bag 36 36 15 Vancomycin 1,500 mg In 250 Sodium Chloride 0.9% 250 ml @ 125 mls/hr IVPB Q36H [facility] Rx#:[id number] Intake, IV Titration 1551 Amount Mvi, Adult No.4 with Vit 1551 K 10 ml Trace (Conc-1Ml/ Dose) 1 ml In Foote 3.3%/ Dex 9.8%/Lipid/Lytes 1, 540 ml @ 64 mls/hr IV . Q24H [facility] Rx#:[id number] Tube Feeding 0 0 Other 120 Output: Gastric Drainage 950 600 125 Drainage 595 355 85 Medial Chest Incision - 100 Woundvac Right Abdomen 495 355 85 Urine 810 850 195 Other: Voiding Method Indwelling Catheter Indwelling Catheter ABP, PAP, CO, CI - Last Documented Arterial Blood Pressure 102/68 Pulmonary Artery Pressure 38/33 Cardiac Output 5.8 Cardiac Index 2.9 - Exam GENERAL: Well developed and in no acute distress. HEENT: No sclera icterus. Extraocular movements grossly intact. NGT present NECK: Tracheostomy present, and clean dry and intact. CHEST: Non-labored respirations and equal bilateral excursions. CARDIOVASCULAR: Tachycardic. ABDOMEN: Obese. No peritonitis. MUSCULOSKELETAL: No clubbing, cyanosis. NEUROLOGIC: No focal or lateralizing signs. PSYCH: Alert and oriented to person. SKIN: Well perfused. - Labs CBC & Chem 7: 01/01/18 04:45 01/01/18 04:45 Labs: Abnormal Lab Results - Last 24 Hours (Table) 12/31/17 01/01/18 01/01/18 Range/Units 18:13 00:19 04:40 WBC (3.8-10.6) k/uL RBC (3.80-5.40) m/uL Hgb (11.4-16.0) gm/dL Hct (34.0-46.0) % MCHC (31.0-37.0) g/dL RDW (11.5-15.5) % ABG pH (7.35-7.45) ABG pO2 (83-108) mmHg ABG HCO3 (21-25) mmol/L ABG Total CO2 (19-24) mmol/L ABG O2 Saturation (94-97) % Carbon Dioxide (22-30) mmol/L BUN (7-17) mg/dL Glucose (74-99) mg/dL POC Glucose (mg/dL) 118 H 103 H 104 H (75-99) mg/dL Magnesium (1.6-2.3) mg/dL 01/01/18 01/01/18 01/01/18 Range/Units 04:45 04:45 04:50 WBC 12.2 H (3.8-10.6) k/uL RBC 3.11 L (3.80-5.40) m/uL Hgb 8.4 L (11.4-16.0) gm/dL Hct 27.0 L (34.0-46.0) % MCHC 30.9 L (31.0-37.0) g/dL RDW 19.3 H (11.5-15.5) % ABG pH 7.51 H (7.35-7.45) ABG pO2 111 H (83-108) mmHg ABG HCO3 34 H (21-25) mmol/L ABG Total CO2 35 H (19-24) mmol/L ABG O2 Saturation 99.1 H (94-97) % Carbon Dioxide 32 H (22-30) mmol/L BUN 39 H (7-17) mg/dL Glucose 108 H (74-99) mg/dL POC Glucose (mg/dL) (75-99) mg/dL Magnesium 2.4 H (1.6-2.3) mg/dL 01/01/18 Range/Units 14:31 WBC (3.8-10.6) k/uL RBC (3.80-5.40) m/uL Hgb (11.4-16.0) gm/dL Hct (34.0-46.0) % MCHC (31.0-37.0) g/dL RDW (11.5-15.5) % ABG pH (7.35-7.45) ABG pO2 (83-108) mmHg ABG HCO3 (21-25) mmol/L ABG Total CO2 (19-24) mmol/L ABG O2 Saturation (94-97) % Carbon Dioxide (22-30) mmol/L BUN (7-17) mg/dL Glucose (74-99) mg/dL POC Glucose (mg/dL) 109 H (75-99) mg/dL Magnesium (1.6-2.3) mg/dL Assessment and Plan (1) Supraventricular tachycardia Current Visit: Yes Status: Acute Code(s): I47.1 - SUPRAVENTRICULAR TACHYCARDIA SNOMED Code(s): 9153988 (2) Morbid obesity due to excess calories Current Visit: Yes Status: Acute Code(s): E66.01 - MORBID (SEVERE) OBESITY DUE TO EXCESS CALORIES SNOMED Code(s): 705791593 (3) Ileus, postoperative Current Visit: Yes Status: Acute Code(s): K91.89 - OTH POSTPROCEDURAL COMPLICATIONS AND DISORDERS OF DGSTV SYS; K56.7 - ILEUS, UNSPECIFIED SNOMED Code(s): 493912711 Plan: 1. Ileus is resolving. 2. May restart tube feeds. 3. Continue ICU care 4. Continue TPN
[2018-01-01] MEDS: MVI, ADULT NO.4 WITH VIT K 10 ML, TRACE (CONC-1ML/DOSE) 1 ML in AMIN 3.3%/DEX 9.8%/LIPI... IV SCH ×3 (17:44)
[2018-01-01 18:07] LABS: Glucose,Whole Blood 90 mg/dL (75-99)
--- NOTE | 2018-01-01 18:26 | PN ---
PROGRESS NOTE DATE OF SERVICE: 01/01/2018. INTERVAL HISTORY: This 67-year-old woman who was admitted after CAD CABG also had multiple medical issues at this time. Currently patient has NG tube inserted. Multiple consultants are following the patient closely. No chest pain. No palpitations. No fever. EXAM: Alert and oriented x2. Pulse is 122, blood pressure 96/60, respiration 20, temperature 98.2, pulse ox 97% on 30% FiO2. HEENT: Conjunctivae normal. NECK: No jugular venous distention. CARDIOVASCULAR: S1, S2. RESPIRATORY: Breath sounds diminished in the bases. A few scattered rhonchi and crackles. ABDOMEN: Soft, nontender. LEGS: No edema, no swelling. NERVOUS SYSTEM: Diffusely weak. LABS: WBC 12.2, hemoglobin is 8.5. ABGs noted, sodium 144. ASSESSMENT: 1. Status post coronary artery disease, CABG and mitral valve replacement. 2. Acute blood loss anemia with multiple transfusions postoperatively. 3. Hypotension. 4. Left subclavian stenosis. 5. Paroxysmal atrial flutter fibrillation status post cardioversion with recurrent atrial fibrillation. 6. Acute hypoxic respiratory failure with re-intubation history. 7. Status post tracheostomy. 8. Obesity with body mass index 41.6. 9. Status post PICC line placement. 10.Acute urinary tract infection with Serratia marcescens and E coli. 11.Bilateral pleural effusion, improved with diuresis. 12.Sternal wound debridement. Culture growing Serratia marcescens, status post wound VAC and sternal flap grafting. 13.Pressure ulceration of the back and buttock, stage III. 14.Diarrhea. C diff is negative. 15.Status post bronchoscopy and left mucous plug removal. 16.Ileus. 17.TPN. 18.On NG tube. RECOMMENDATIONS AND DISCUSSION: I recommend to continue current management and symptomatic treatment. Otherwise closely follow. Continue the NG tube. Otherwise, prognosis guarded. Further recommendations to follow. MMODL / IJN: [id number] /
[2018-01-01] MEDS: ESCITALOPRAM 10 MG TAB PO SCH (21:03)
[2018-01-01] MEDS: SENNOSIDES-DOCUSATE SODIUM 1 EACH TAB PO SCH (21:06)
[2018-01-02] MEDS: IPRATROPIUM-ALBUTEROL 3 ML NEB INHALATION SCH ×7 (00:12→23:57)
[2018-01-02] MEDS: INSULIN ASPART 100 UNIT/ML 1 ML 10 ML VIAL SQ SCH ×4 (00:22→18:45)
[2018-01-02] MEDS: MEROPENEM 1 GM in SODIUM CHLORIDE 0.9% 100 ML IVPB SCH ×3 (00:23→16:45)
[2018-01-02] MEDS: HEPARIN SODIUM,PORCINE 5,000 UNIT/ML 1 ML VIAL SQ SCH ×3 (00:23→16:44)
[2018-01-02] MEDS: METOCLOPRAMIDE 5 MG/ML 2 ML VIAL IVP SCH ×4 (00:25→18:44)
[2018-01-02 00:26] LABS: Glucose,Whole Blood 85 mg/dL (75-99)
[2018-01-02 04:27] LABS: Glucose,Whole Blood 94 mg/dL (75-99)
[2018-01-02 04:40] LABS: Anisocytosis Slight; Hypochromasia Marked; MCH 26.4 pg (25.0-35.0); MCHC 30.7 g/dL (31.0-37.0); Platelet Count 336 k/uL (150-450); Poikilocytosis Slight; RBC 3.03 m/uL (3.80-5.40); RDW 19.7 % (11.5-15.5)
[2018-01-02 04:45] LABS: Calcium 9.2 mg/dL (8.4-10.2); Magnesium 2.3 mg/dL (1.6-2.3); Phosphorus 3.6 mg/dL (2.5-4.5); Potassium 3.6 mmol/L (3.5-5.1)
[2018-01-02 05:16] LABS: ABG Base Excess 8.8 mmol/L; ABG HCO3 32 mmol/L (21-25); ABG Oxygen Saturation 98.8 % (94-97); ABG PCO2 41 mmHg (35-45); ABG PO2 107 mmHg (83-108); ABG TCO2 33 mmol/L (19-24)
[2018-01-02 07:14] LABS: Glucose,Whole Blood 90 mg/dL (75-99)
--- NOTE | 2018-01-02 07:18 | XR ---
EXAMINATION TYPE: XR chest 1V portable DATE OF EXAM: 01/02/2018 HISTORY: post cardiac surgery. REFERENCE: Previous study dated 01/01/2018. FINDINGS: There is a tracheostomy tube in place. Its tip overlies the tracheal air column in this sin gle frontal projection. An NG tube remains in place with its tip in the stomach. The heart is enlarged. There has been mediastinal surgery and valvular replacement in the heart. Ther e is left basilar airspace disease. There is a left effusion and a smaller right effusion. Vascular c ongestion has improved. IMPRESSION: 1. IMPROVED VASCULAR CONGESTION. 2. CARDIOMEGALY. 3. LEFT BASILAR AIRSPACE DISEASE. 4. SMALL, BILATERAL EFFUSIONS, GREATER ON THE LEFT THAN THE RIGHT.
[2018-01-02] MEDS: BUDESONIDE 1 MG/2 ML NEBU INHALATION SCH ×2 (07:39→19:31)
[2018-01-02] MEDS ORDERED: FUROSEMIDE 10 MG/ML 4 ML VIAL IV STA (08:21)
--- NOTE | 2018-01-02 08:36 | P.PN ---
Subjective Progress Note Date: 01/02/18 Principal diagnosis: Severe mitral regurgitation. Coronary artery disease. Paroxysmal atrial fibrillation on Coumadin for anticoagulation. Recent hospitalization for lower GI bleed, duodenal ulcer. History of left subclavian stenosis with stent placement 2014 with recent discovery of critical re-in-stent stenosis. Previous tobacco dependence with preoperative FEV1 60% of predicted. Hypertension. Hyperlipidemia. Gallbladder disease. Family history of heart disease. Preoperative nasal swab positive for MRSA. Preoperative anemia. POD #38 mitral valve replacement using a 25 mm Ribera bioprosthetic tissue valve. Coronary artery bypass grafting 1, reverse saphenous vein graft to the obtuse marginal artery. Maze procedure. Endoscopic harvesting of the right greater saphenous vein. Epi-aortic ultrasound. Intraoperative transesophageal echocardiogram. Ligation of the left atrial appendage using a 40 mm AtriClip. Intraoperative left ventricular wall tear, an unexpected but potential outcome of surgery Acute blood loss anemia, and expected outcome given patient's preoperative anemia and intraoperative bleeding. Postoperative prolonged mechanical ventilation secondary to hemodynamic instability, and unexpected but potential outcome of surgery given the extensive nature of her perioperative course. POD #9 placement of a #8 Shiley nonfenestrated tracheostomy tube. Sternal incision dehiscence, a possible outcome of surgery given patient's obesity, nutrition status, debility POD #12 right rectus abdominous muscle flap closure, open sternal wound. Closure of sternal wound and muscle flap with skin graft substitute, 238 cm. Implantation of reconstructive graft for closure of abdominal wall wound, [address] Krause POD #23 sternal wound debridement with placement of wound VAC. Postoperative left lower lobe collapse secondary to mucous plugging, and unexpected but potential outcome of surgery. Bronchial washings positive for Rachana species. POD #18 bronchoscopy and bronchoalveolar lavage of the left lower lobe and extraction of mucous plug. Postoperative ileus, an unexpected but potential outcome of surgery. The patient's currently laying in bed in no acute distress. Denies pain, shortness of breath. Patient had large bowel movement yesterday. Trickle tube feeding restarted per general surgery, patient appears to be tolerating well so far. Still in rapid A. flutter but heart rate is down into the 120s today. Objective - Vital Signs Vital signs: Vital Signs Temp 98.0 F 01/02/18 08:00 Pulse 128 H 01/02/18 08:00 Resp 20 01/02/18 08:00 BP 116/54 03/18/18 10:00 Pulse Ox 98 01/02/18 08:00 Intake & Output 01/01/18 01/02/18 01/02/18 18:59 06:59 18:59 Intake Total 1196 486 146 Output Total 985 385 20 Balance 211 101 126 Weight 97.7 kg 96.6 kg Intake: IV 1196 256 126 Albumin Human 25% 50 ml 50 In Empty Bag 1 bag @ 100 mls/hr IVPB ONCE ONE Rx#: [id number] Dextrose 5%-0.45% NaCl 1, 120 120 20 000 ml @ 10 mls/hr IV . Q24H [facility] Rx#:[id number] Meropenem 1 gm In Sodium 100 100 Chloride 0.9% 100 ml @ 200 mls/hr IVPB Q8HR [facility] Rx#:[id number] Mvi, Adult No.4 with Vit 640 K 10 ml Trace (Conc-1Ml/ Dose) 1 ml In Foote 3.3%/ Dex 9.8%/Lipid/Lytes 1, 540 ml @ 64 mls/hr IV . Q24H [facility] Rx#:[id number] Pressure Bag 36 36 6 Vancomycin 1,500 mg In 250 Sodium Chloride 0.9% 250 ml @ 125 mls/hr IVPB Q36H [facility] Rx#:[id number] potassium 100 Tube Feeding 140 20 Other 90 Output: Gastric Drainage 125 Drainage 110 95 Right Abdomen 110 95 Urine 750 290 20 Other: Voiding Method Indwelling Catheter # Bowel Movements 1 1 ABP, PAP, CO, CI - Last Documented Arterial Blood Pressure 116/70 Pulmonary Artery Pressure 38/33 Cardiac Output 5.8 Cardiac Index 2.9 - Constitutional General appearance: Present: cooperative, no acute distress, obese - Respiratory Details: Lungs sounds diminished bilaterally. Respirations even, nonlabored. Currently on mechanical ventilation with settings assist control mode, FiO2 35%, tidal volume 400, respiratory rate 20, PEEP 5. ABGs this morning 7.5/41/107/32/8.8/98 % on 35% FiO2. - Cardiovascular Details: S1, S2 present. Regular rate and rhythm, rapid atrial flutter on telemetry. Open chest with wound VAC in place. Palpable peripheral pulses bilaterally. Bilateral lower extremity edema present. No calf pain or tenderness noted. Vance wraps to bilateral lower extremities from toes to knees. SCDs present. - Gastrointestinal Gastrointestinal Comment(s): Abdomen soft, nontender, less distended. Active bowel sounds 4 quadrants. NG tube present, tube feedings initiated at 10 mL an hour, currently at 20 mL an hour. Positive large bowel movement. - Genitourinary Genitourinary Comment(s): Mason present draining clear, yellow urine. Output overnight 20-30 mL/h. Good diuresis yesterday after Lasix given. - Integumentary Integumentary Comment(s): Skin is warm and dry. Open chest with wound VAC present. Occipital area of the head with small area of eschar without drainage. Lower back with pressure ulcer with local wound care. Abdominal incision with dry intact maya. HENRI drain present with minimal serous drainage of 50 mL total overnight. - Neurologic Neurologic: Present: CNII-XII intact - Musculoskeletal Musculoskeletal: Present: generalized weakness - Psychiatric Psychiatric: Present: A&O x's 3, appropriate affect, intact judgment & insight - Allied health notes Allied health notes reviewed: nursing - Labs CBC & Chem 7: 01/02/18 04:25 01/02/18 04:25 Labs: Abnormal Lab Results - Last 24 Hours (Table) 01/01/18 01/02/18 01/02/18 Range/Units 14:31 04:25 04:25 WBC 12.0 H (3.8-10.6) k/uL RBC 3.03 L (3.80-5.40) m/uL Hgb 8.0 L (11.4-16.0) gm/dL Hct 26.0 L (34.0-46.0) % MCHC 30.7 L (31.0-37.0) g/dL RDW 19.7 H (11.5-15.5) % ABG pH (7.35-7.45) ABG HCO3 (21-25) mmol/L ABG Total CO2 (19-24) mmol/L ABG O2 Saturation (94-97) % BUN 42 H (7-17) mg/dL POC Glucose (mg/dL) 109 H (75-99) mg/dL 01/02/18 Range/Units 05:12 WBC (3.8-10.6) k/uL RBC (3.80-5.40) m/uL Hgb (11.4-16.0) gm/dL Hct (34.0-46.0) % MCHC (31.0-37.0) g/dL RDW (11.5-15.5) % ABG pH 7.50 H (7.35-7.45) ABG HCO3 32 H (21-25) mmol/L ABG Total CO2 33 H (19-24) mmol/L ABG O2 Saturation 98.8 H (94-97) % BUN (7-17) mg/dL POC Glucose (mg/dL) (75-99) mg/dL - Imaging and Cardiology Chest x-ray: report reviewed, image reviewed Assessment and Plan (1) Acute blood loss anemia Current Visit: Yes Status: Acute Code(s): D62 - ACUTE POSTHEMORRHAGIC ANEMIA SNOMED Code(s): 212298316 (2) CAD (coronary artery disease) Current Visit: Yes Status: Chronic Code(s): I25.10 - ATHSCL HEART DISEASE OF [place] CORONARY ARTERY W/O ANG PCTRS SNOMED Code(s): 56493359 (3) Hyperlipidemia Current Visit: Yes Status: Chronic Code(s): E78.5 - HYPERLIPIDEMIA, UNSPECIFIED SNOMED Code(s): 89281243 (4) Hypertension Current Visit: Yes Status: Chronic Code(s): I10 - ESSENTIAL (PRIMARY) HYPERTENSION SNOMED Code(s): 41053458 (5) Severe mitral regurgitation Current Visit: Yes Status: Chronic Code(s): I34.0 - NONRHEUMATIC MITRAL ( VALVE) INSUFFICIENCY SNOMED Code(s): 06557702 (6) Stenosis of left subclavian artery Current Visit: Yes Status: Chronic Code(s): I77.1 - STRICTURE OF ARTERY SNOMED Code(s): 02865014351000750 (7) Paroxysmal atrial fibrillation Current Visit: No Status: Resolved Code(s): I48.0 - PAROXYSMAL ATRIAL FIBRILLATION SNOMED Code(s): 740352874 (8) History of GI bleed Current Visit: No Status: Resolved Code(s): Z87.19 - PERSONAL HISTORY OF OTHER DISEASES OF THE DIGESTIVE SYSTEM SNOMED Code(s): 338426718 (9) Family history of coronary artery disease Current Visit: Yes Status: Chronic Code(s): Z82.49 - FAMILY HX OF ISCHEM HEART DIS AND OTH DIS OF THE CIRC SYS SNOMED Code(s): 296689659 (10) Ileus, postoperative Current Visit: Yes Status: Acute Code(s): K91.89 - OTH POSTPROCEDURAL COMPLICATIONS AND DISORDERS OF DGSTV SYS; K56.7 - ILEUS, UNSPECIFIED SNOMED Code(s): 691259596 (11) Pressure ulcer of contiguous region involving back and buttock, stage 3 Current Visit: Yes Status: Acute Code(s): L89.43 - PRESSR ULCER OF CONTIG SITE OF BACK, BUTTOCK AND HIP, STG 3 SNOMED Code(s): 771846948 (12) Sternal wound dehiscence Current Visit: Yes Status: Acute Code(s): T81.32XA - DISRUPTION OF INTERNAL OPERATION (SURGICAL) WOUND, NEC, INIT SNOMED Code(s): 10525693 Plan: 1. Continue baby aspirin, statin, subcu heparin, beta krunal. Will increase beta krunal therapy as tolerated. 2. Continue amiodarone for atrial fibrillation prophylaxis. No further IV amiodarone. Dr. Crawley is aware of the patient's continued heart rate/rhythm. No cardioversion as we cannot anticoagulate at this time. 3. Continue Cardizem for rate control. 4. Ventilator management per pulmonology. Wean as tolerated. 5. Continue meropenem, Vanco per Dr. Olivera. 6. Will monitor labs, chest x-rays. 7. Bronchodilators per pulmonology. 8. Will hold off on Coumadin as patient will need for future surgery for chest closure, possible PEG. No IV heparin. 9. GI/DVT prophylaxis. 10. Increase activity. PT/OT/cardiac rehab following. 11. Tube feedings restarted per Gen. surgery. Monitor for nausea, high residual. Continue TPN. No contraindication to PEG tube placement per Dr. Krause. 12. Continue IV Reglan every 6 hours, lactulose 3 times a day per general surgery to stimulate bowel. 13. Keep Mason for strict accurate intake and output. Change out every 7 days. 14. Wound VAC to be changed on Wednesday, Wednesday, and Wednesday by nurse practitioner. 15. Local wound care to back of head and lower back. Silvadene for left upper thigh skin tear. 16. Will give Lasix 40 mg IV today. 17. More recommendations as patient progresses. Patient will need evaluation for select specialty for discharge. Time with Patient: Greater than 30
[2018-01-02] MEDS: POTASSIUM CHLORIDE 10 MEQ in WATER FOR INJECTION 1 100ML.BAG IVPB SCH ×2 (08:42→10:08)
[2018-01-02] MEDS: LACTOBACILLUS ACIDOPH & BULGAR 1 EACH PACKET PO SCH ×3 (08:49→20:33)
[2018-01-02] MEDS: PANTOPRAZOLE 40 MG TABLET PO SCH (08:49)
[2018-01-02] MEDS: METOPROLOL TARTRATE 50 MG TAB NG-TUBE SCH ×2 (08:50→20:33)
[2018-01-02] MEDS: ATORVASTATIN 40 MG TAB PO SCH (08:50)
[2018-01-02] MEDS: AMIODARONE 200 MG TAB PO SCH ×2 (08:50→20:33)
[2018-01-02] MEDS: DILTIAZEM ORAL 60 MG TAB PO SCH ×3 (08:50→22:54)
[2018-01-02] MEDS: ASPIRIN 81 MG PO SCH (08:50)
[2018-01-02] MEDS: DEXTROSE 5%-0.45% NACL 1,000 ML IV SCH (10:09)
[2018-01-02 12:17] LABS: Glucose,Whole Blood 92 mg/dL (75-99)
--- NOTE | 2018-01-02 12:53 | P.PN ---
Subjective Progress Note Date: 01/02/18 Principal diagnosis: Status post open heart This is a pleasant 67-year-old female patient who sees Dr. Crawley as an outpatient who underwent an open heart surgery where she had CABG 1 associated with mitral valve replacement and maze procedure, with a postoperative course was complex and complicated by respiratory failure, chest incision dehiscence, where the patient did have to go to the OR again and have another surgery. Currently the patient is in chronic respiratory failure and she does have a tracheostomy She is also in congestive heart failure and fluid overload. beside that she is in persistent atrial flutter with a heart rate of 145 bpm continuously. The blood pressure has been marginally low. Currently she is on metoprolol, Cardizem, and she is on amiodarone by mouth. She is not on any anticoagulation for multiple reasons including bleeding and possible going to the OR again regarding the wound. On follow-up with the patient today she seems slightly better. The heart rate has improved from 145 bpm to 125 beats per minute. As a matter of fact during the night she dropped her heart rate to the 80s and 90s. Objective - Vital Signs Vital signs: Vital Signs Temp 97.7 F 01/02/18 12:00 Pulse 127 H 01/02/18 12:00 Resp 21 01/02/18 12:00 BP 116/54 12/19/17 10:00 Pulse Ox 98 01/02/18 12:00 Intake & Output 01/01/18 01/02/18 01/02/18 18:59 06:59 18:59 Intake Total 1196 496 688 Output Total 985 425 380 Balance 211 71 308 Weight 97.7 kg 96.6 kg Intake: IV 1196 256 378 Albumin Human 25% 50 ml 50 In Empty Bag 1 bag @ 100 mls/hr IVPB ONCE ONE Rx#: [id number] Dextrose 5%-0.45% NaCl 1, 120 120 60 000 ml @ 10 mls/hr IV . Q24H [facility] Rx#:[id number] Meropenem 1 gm In Sodium 100 100 100 Chloride 0.9% 100 ml @ 200 mls/hr IVPB Q8HR [facility] Rx#:[id number] Mvi, Adult No.4 with Vit 640 K 10 ml Trace (Conc-1Ml/ Dose) 1 ml In Foote 3.3%/ Dex 9.8%/Lipid/Lytes 1, 540 ml @ 64 mls/hr IV . Q24H [facility] Rx#:[id number] Pressure Bag 36 36 18 Vancomycin 1,500 mg In 250 Sodium Chloride 0.9% 250 ml @ 125 mls/hr IVPB Q36H [facility] Rx#:[id number] potassium 200 Tube Feeding 150 160 Other 90 150 Output: Gastric Drainage 125 Drainage 110 135 120 Right Abdomen 110 135 120 Urine 750 290 260 Other: Voiding Method Indwelling Catheter Indwelling Catheter Indwelling Catheter # Bowel Movements 1 1 ABP, PAP, CO, CI - Last Documented Arterial Blood Pressure 102/63 Pulmonary Artery Pressure 38/33 Cardiac Output 5.8 Cardiac Index 2.9 - Constitutional General appearance: Present: mild distress - Respiratory Respiratory: bilateral: diminished - Cardiovascular Rhythm: regular Heart sounds: normal: S1, S2 - Labs CBC & Chem 7: 01/02/18 04:25 01/02/18 12:19 Labs: Abnormal Lab Results - Last 24 Hours (Table) 01/01/18 01/02/18 01/02/18 Range/Units 14:31 04:25 04:25 WBC 12.0 H (3.8-10.6) k/uL RBC 3.03 L (3.80-5.40) m/uL Hgb 8.0 L (11.4-16.0) gm/dL Hct 26.0 L (34.0-46.0) % MCHC 30.7 L (31.0-37.0) g/dL RDW 19.7 H (11.5-15.5) % ABG pH (7.35-7.45) ABG HCO3 (21-25) mmol/L ABG Total CO2 (19-24) mmol/L ABG O2 Saturation (94-97) % BUN 42 H (7-17) mg/dL POC Glucose (mg/dL) 109 H (75-99) mg/dL 01/02/18 Range/Units 05:12 WBC (3.8-10.6) k/uL RBC (3.80-5.40) m/uL Hgb (11.4-16.0) gm/dL Hct (34.0-46.0) % MCHC (31.0-37.0) g/dL RDW (11.5-15.5) % ABG pH 7.50 H (7.35-7.45) ABG HCO3 32 H (21-25) mmol/L ABG Total CO2 33 H (19-24) mmol/L ABG O2 Saturation 98.8 H (94-97) % BUN (7-17) mg/dL POC Glucose (mg/dL) (75-99) mg/dL Assessment and Plan Assessment: Assessment #1 respiratory failure #2 status post open heart and status post CABG and mitral valve replacement #3 persistent atrial flutter #4 congestive heart failure #5 sternal wound infection #6 peripheral vascular disease and known left subclavian stenosis #7 multiple comorbid conditions Plan #1 continue the Lasix IV #2 continue monitor the kidney function and electrolytes #3 cardioversion if the heart rate not controlled on medications
--- NOTE | 2018-01-02 12:58 | P.PN ---
Subjective Progress Note Date: 01/02/18 A 67-year-old female patient was being seen in follow-up in the intensive care unit. The patient is postop day #32 following her cardiac surgery. The patient underwent a one-vessel bypass surgery and mitral valve replacement and I 'm seeing her today in follow-up. Events postop were all noted and I was updated by the nursing staff regarding details on her progress. The patient underwent a surgical flap of the sternal wound as the patient had wound dehiscence and infection and she is currently postop day #6. The patient also has a tracheostomy tube in place and the patient is postop day #3 post trach. The previous cultures have indicated Serratia marcescens and the patient remains on IV Merrem. Note that during the course of her ICU stay the patient developed complete left lung collapse and she required bronchoscopy and the sputum has indicated Rachana. She is also on Diflucan. The patient also has a tracheostomy tube in place and the patient is postop day #3 post trach. T This morning, the patient is awake and alert. She is following commands and answering questions. She is an assist-control mode of ventilation. The patient is being given brief trials with pressure support and she initially started tolerating pressure support for one hour then subsequently 2 hours. She is not ready for further weaning or prolonged periods where she is placed on pressure support. Currently she is on a assist-control mode at the rate of 20 with tidal volume 400, and 35% FiO2 with a PEEP of 5. She has a tracheostomy tube which is a Shiley trach tube #8. Surgical wound site on the tracheostomy tube is clean. The patient is not having significant orotracheal secretions. The patient is a bit tachypneic as her abdomen is somewhat distended on today's evaluation. I can't understand that the patient was throwing up throughout the night. Her abdomen is somewhat distended and tympanic. She is producing some loose bowel movements. The patient had a Dobbhoff catheter for enteral feeding and nutritional support. The feeding was stopped this morning. She is not complaining of any abdominal pain however abdomen is distended. On today's chest x-ray there is a large gastric bubble. There is also small bilateral pleural. Effusions. She has underlying cardiomegaly. Sternum stable clean and intact. The HENRI drain in the sternal wound is still in place. Her blood gases from today showed a pH of 7.37 with a pCO2 of 57 and pO2 of 102. Patient continues to be edematous in the upper and lower extremity more so in the legs. The patient is being diuresis with Lasix. The patient is a negative fluid balance of 471 mL over the past 24 hours. The patient is on no pressors. Cardiac rhythm is sinus rhythm. On 12/28/2017 the patient is being seen for a follow-up. The patient is wide awake and alert. She remains on a mechanical ventilator. She is on a assist- control mode of ventilation. The patient has a tracheostomy tube #8 Shiley. The patient is in a rate of 20, tidal volume 400, FiO2 of 35% and a PEEP of 5. Chest x-ray findings are stable. remains distended and tympanic. The patient is an underlying ileus. The tube feeds have been placed on hold. The Dobbhoff is attached to suction. The follow-up abdominal film showed Marked dilation of the small bowel loop and this is consistent with ileus. The patient is currently off tube feeds. Meanwhile, the patient's weaning parameters today at baseline showed a rapid shallow breathing index of 86 with a vital Of 450-480. The patient is not ready for any weaning trials at this point. Meanwhile, we' ll continue supportive care. The patient's wound VAC over the anterior chest has gained approximately 1160 MO's for this current shift. The abdominal wound drainage is quite extensive. It drained approximately 2000 MO's of serosanguineous fluid and over the past 8 hours it drained around 1178 ML's. The patient remains on a combination of antibiotics. The patient is receiving a combination of vancomycin and Merrem. The antibiotic coverage is mainly for sternal wound infection/dehiscence. The wound VAC is been applied to the sternal area. No fever. No leukocytosis and no hypotension. No other complaints otherwise. Hemoglobin is low at 7.0. On 12/29/2017 and I'm seeing this patient for a follow-up. She remains nothing by mouth. Abdomen is less distended compared to yesterday. Dobbhoff is in place. The patient was started on lactulose. She was producing some limited amount of bowel moments which was liquidy. Nevertheless the bowel sounds are very sluggish on today's evaluation. She is in a sitting up position in her bed. She assist-control mode of ventilation and I was able to put on a pressure support of 10 and PEEP of 5 for few hours this morning. Her FiO2 is remains at 35%. She still has a wound VAC over the anterior chest and she also has a drain in her right lower abdominal wall which is draining extensively. The patient remains on the same antibiotic coverage. I came to realize that Merrem was taken off the list accidentally by the computer system and I had to resume the mammogram again in conjunction with vancomycin. The patient will need long-term antibiotic treatment for sternal wound infection. This was again confirmed with infectious disease. The patient's hemoglobin today is at 7.2. The patient has no fever. No chills. No leukocytosis. No altered mentation. His communicating. She is weak and she continues to have some edematous upper and lower extremities. She was started on TPN for nutritional support. General surgeries on the case regarding her abdominal ileus. On 12/30/2017, the patient is awake and alert. She is an assist-control mode of ventilation. She tolerated a 1 hour of pressure support ventilation yesterday following with she became short of breath and tachycardic and this had to be aborted. She remained hemodynamically stable however last night she went into a flutter with rapid ventricular response at the rate of 1:30. She remains on a combination of metoprolol and amiodarone. No chest pain. She is producing adequate amount of urine output. She still has an abdominal ileus. Bowel sounds are hypoactive. She is passing bowel movements and the Dobbhoff still in place. TPN was initiated for nutritional support. The wound VAC is in place. The HENRI drain in the right upper abdomen is also in place. She is afebrile. She is moving all 4 extremities. Still weak yet in good spirits. On 12/31/2017 seeing this patient for a follow-up. Unfortunately her condition is still the same. She remains to have abdominal distention and ileus. The flat film of the abdomen done today showed has filled loops of bowel without evidence of pneumoperitoneum. Dobbhoff is present. The stomach is also distended and the findings are compatible with ileus. The patient was trialed on a trickle feed yesterday however she failed as earlier this morning the patient got nauseated and the feeding had to be stopped this morning. She still burping and she is also passing gas from her rectum. She has distended. Her abdomen is tympanic. Had a lengthy discussion with the general surgeon. Not a candidate for PEG tube insertion and our final recommendation was to remove the Dobbhoff and the site her stomach by irregular NG tube. This will be done at the bedside. Also the patient remains in atrial flutter with rapid ventricular response at the rate of 140. Cardiology was informed. They want to continue the same treatment with increase of the amiodarone dose up to 200 mg by mouth twice a day and the patient is on a combination of Cardizem and metoprolol. She remains hemodynamically stable and she is producing adequate amount of urine output. The wound VAC is in place. The HENRI drain from the right abdominal wound is still active. She is awake and alert. She remains on assist control mode of ventilation. Chest x-ray from today shows no acute abnormalities and the findings are essentially stable. Blood gases showed a pH of 7.44 with a pCO2 of 48 and pO2 of 109. The patient is receiving TPN for nutritional support. Edema in the upper and lower extremities are also improving. On 01/01/2018 I'm seeing this patient for a follow-up. The events from yesterday were old noted and recorded in the chart. The active issue was the abdominal distention and ileus. The patient had a Dobbhoff and she was not tolerating the enteral feeding which got discontinued. She remained and ileus. I was able to remove the top of any inserted regular NG tube catheter and immediately more than a liter of fluid was aspirated from the stomach. She produced another 700 mL following that. Abdomen is less distended on today's evaluation. She seems to be more comfortable. Another active problem isn't ongoing atrial flutter. The patient has not responded to any of the medications given. She is currently on oral amiodarone, oral Cardizem, and oral metoprolol. Cardioverted in has not been performed that there is a concern that the patient may embolize and she is not on any form of anticoagulation for now. Meanwhile, there was VAC is being replaced 3 times a week and the drainage from the wound VAC is approximately 100 mL over the past day. The HENRI drain is still active on the right abdominal wound that is draining approximately 40 mL an hour. She is afebrile. She remains in same antibiotic coverage. She is receiving TPN for discharge support. She is an assist-control mode of ventilation. No attempts to wean as the patient is still quite weak, still on ileus and still having atrial flutter at an increased rate. Chest x-ray still showing some small effusions and mild degree of pulmonary vascular congestion and cardiomegaly. Tracheostomy is in place. She is awake and alert. She is still weak due to the above-mentioned comorbidities. The pH today is at 7.51 with a pCO2 of 42 and pO2 of 111 and this was done and assist-control mode at the rate of 20 with a tidal volume of 400 and FiO2 of 35% with a PEEP of 5. White cell count is not elevated at 12.2. Creatinine is stable at 0.9. On 01/02/2018 the patient is being seen for a follow-up. She is awake and alert and she is still on a mechanical ventilator with the same vent setting on assist control mode of ventilation. Not ready for weaning. The wound VAC is being replaced 3 times a week and the patient is still has a right abdominal HENRI drain the drainage of which is is slowing however still considerably high. She is afebrile. She remains in A. fib/flutter rhythm and rate is between 110 and 1 :30. The patient had an ongoing issue with an ileus. After inserting the NG tube and putting her bowel to rest for 48 hours, the patient was able to handle some of the tube feeds that was started yesterday evening at 10 mL an hour and this was gradually advanced of the 20 mL by mouth and she has no residuals per no abdominal distention. She is producing some stool for now. TPN has been placed on hold for now. The patient is still on same antibiotic coverage. She is awake and alert. Wound care is being done. In terms of her atrial flutter, no plans for cardioversion and the patient will receive medical treatment with a combination of Cardizem, metoprolol and amiodarone. No anticoagulation for now. She remains on a combination of Merrem and vancomycin. The chest x-ray findings are showing some increased pulmonary vessel markings and cardiomegaly. Despite that, the patient has improvement in the volume status and there is improvement in the upper and lower extremity edema. No significant respiratory distress and the patient remains on a 35% FiO2 with a tidal volume 400 and a rate of 20. PEEP remains at 5. Renal function is also stable. No leukocytosis. Objective - Vital Signs Vital signs: Vital Signs Temp 97.7 F 01/02/18 12:00 Pulse 127 H 01/02/18 12:00 Resp 21 01/02/18 12:00 BP 116/54 12/19/17 10:00 Pulse Ox 98 01/02/18 12:00 Intake & Output 01/01/18 01/02/18 01/02/18 18:59 06:59 18:59 Intake Total 1196 496 688 Output Total 985 425 380 Balance 211 71 308 Weight 97.7 kg 96.6 kg Intake: IV 1196 256 378 Albumin Human 25% 50 ml 50 In Empty Bag 1 bag @ 100 mls/hr IVPB ONCE ONE Rx#: [id number] Dextrose 5%-0.45% NaCl 1, 120 120 60 000 ml @ 10 mls/hr IV . Q24H [facility] Rx#:[id number] Meropenem 1 gm In Sodium 100 100 100 Chloride 0.9% 100 ml @ 200 mls/hr IVPB Q8HR [facility] Rx#:[id number] Mvi, Adult No.4 with Vit 640 K 10 ml Trace (Conc-1Ml/ Dose) 1 ml In Foote 3.3%/ Dex 9.8%/Lipid/Lytes 1, 540 ml @ 64 mls/hr IV . Q24H [facility] Rx#:[id number] Pressure Bag 36 36 18 Vancomycin 1,500 mg In 250 Sodium Chloride 0.9% 250 ml @ 125 mls/hr IVPB Q36H [facility] Rx#:[id number] potassium 200 Tube Feeding 150 160 Other 90 150 Output: Gastric Drainage 125 Drainage 110 135 120 Right Abdomen 110 135 120 Urine 750 290 260 Other: Voiding Method Indwelling Catheter Indwelling Catheter Indwelling Catheter # Bowel Movements 1 1 ABP, PAP, CO, CI - Last Documented Arterial Blood Pressure 102/63 Pulmonary Artery Pressure 38/33 Cardiac Output 5.8 Cardiac Index 2.9 - Exam - Constitutional General appearance: Present: cooperative, no acute distress, obese, the patient has a #8 tracheostomy Shiley trach tube in place. She is synchronous with the mechanical ventilator. She is awake and interactive. - Neck Details: Neck is supple, no JVD, no lymphadenopathy. Tracheostomy tube is midline and intact, sutures in place. - Respiratory Details: Lungs sounds essentially diminished throughout. Respirations are symmetrical and nonlabored with mechanical ventilator support. Oxygen saturation are 99% with current ventilator settings. Current ventilator settings is an assist- control: Cycle ventilator - Cardiovascular Details: Pain is tachycardic at regular rate and rhythm seems to be regular. This may be a a flutter with 2 to one block. S1 and S2 present, negative for S3 , gallop or murmur. Chest with open wound, postoperative muscle flap performed. The patient has a one leg applied to the anterior chest Dressing with scant serous drainage. Generalized anasarca with weeping. Vance wraps in place from toes to thighs to bilateral lower extremities. The patient is wound VAC and drained 1000 mL since yesterday and the right abdominal HENRI has drained 40cc/hr yesterday. PICC line is also in place. - Gastrointestinal Gastrointestinal Comment(s): Abdomen is soft, obviously less tympanic and tender compared to yesterday and there is no significant distention.. The patient had diminished bowel sounds. No direct tenderness but no rebound tenderness. No guarding. Abdominal wound is dry clean and intact. The patient has a HENRI drain in the lower abdominal wall which is draining quite extensively. - Genitourinary Genitourinary Comment(s): Mason catheter for accurate I&O. Draining clear yellow urine. - Integumentary Integumentary Comment(s): Skin is warm and dry. No clubbing or cyanosis. Anasarca with scattered areas of blistering and weeping thin serous drainage. Pressure ulcerations to her buttocks with local wound care. Ulceration to her right wrist area with dressing in place with scant serous drainage. Dressing in place to her chest wound. - Neurologic Neurologic Comment(s): Alert and following verbal commands. Nodding her head yes and no appropriately to questions. Moving all 4 extremities appropriately with weak movements. - Musculoskeletal Musculoskeletal: Present: generalized weakness, strength equal bilaterally - Psychiatric Psychiatric Comment(s): Psychiatric: Present: intact judgment & insight - Labs CBC & Chem 7: 01/02/18 04:25 01/02/18 12:19 Labs: Abnormal Lab Results - Last 24 Hours (Table) 01/01/18 01/02/18 01/02/18 Range/Units 14:31 04:25 04:25 WBC 12.0 H (3.8-10.6) k/uL RBC 3.03 L (3.80-5.40) m/uL Hgb 8.0 L (11.4-16.0) gm/dL Hct 26.0 L (34.0-46.0) % MCHC 30.7 L (31.0-37.0) g/dL RDW 19.7 H (11.5-15.5) % ABG pH (7.35-7.45) ABG HCO3 (21-25) mmol/L ABG Total CO2 (19-24) mmol/L ABG O2 Saturation (94-97) % BUN 42 H (7-17) mg/dL POC Glucose (mg/dL) 109 H (75-99) mg/dL 01/02/18 Range/Units 05:12 WBC (3.8-10.6) k/uL RBC (3.80-5.40) m/uL Hgb (11.4-16.0) gm/dL Hct (34.0-46.0) % MCHC (31.0-37.0) g/dL RDW (11.5-15.5) % ABG pH 7.50 H (7.35-7.45) ABG HCO3 32 H (21-25) mmol/L ABG Total CO2 33 H (19-24) mmol/L ABG O2 Saturation 98.8 H (94-97) % BUN (7-17) mg/dL POC Glucose (mg/dL) (75-99) mg/dL Assessment and Plan Plan: Assessment 1 coronary artery bypass surgery with single-vessel bypass and mitral valve replacement/bioprosthetic valve. The patient is postop day #38 2 sternal wound infection with Serratia marcescens with subsequent dehiscence. The patient underwent wound debridement with subsequent muscle flap and the patient is postop day #121. The patient remains on a combination of Merrem and vancomycin. The wound VAC is still in place and this is being replaced 3 times a week 3 prolonged ventilator dependent respiratory failure, status post tracheostomy tube insertion and the patient is postop day #9. Patient remains on assist control mode of ventilation . Weaning parameters that point the patient is not ready for further weaning at this point. 4 acute on chronic respiratory failure, multifactorial. The patient's sternal wound and the muscle flap is healing for now. She is weak and she is not ready for further weaning based on her daily parameters. Doubt superimposed pneumonia at this point and the most recent chest x-ray from yesterday shows a component of pulmonary vessel congestion/edema. Yet the patient is actually taking well and the pO2 is at 107 while being on 35% FiO2. 5 increased edema both upper and lower extremities, improving 6 tachycardia with an a flutter rhythm, cardiology is on the case. She is mainly maintained on oral medications. No plans to cardiovert per cardiology 7 peripheral vascular disease 8 left subclavian artery stenosis status post insertion of an endovascular stent 9 anemia, a expected outcome of prolonged ICU stay and multiple surgeries 10 ileus, improving and the patient is on 20 mL an hour of tube feeds. 11 left lung collapse status post bronchoscopy and therapeutic it was suctioning. Patient has Rachana within the sputum currently on Diflucan. Most recent chest x-ray shows adequate rest of both lungs and there is some mild component of pulmonary congestion. 12 hypertension 13 hyperlipidemia 14 anemia multifactorial with a hemoglobin level of 8.0 PLAN Continue supportive care. Advance tube feeds as tolerated with very close attention towards any residual abdominal distention or emesis. Wound VAC care. Keep HENRI drain in place. Continue same antibiotic coverage. Unable to wean yet as the patient is not ready. Continue to follow. Critically care evaluation, more than 30 minutes Time with Patient: Greater than 30
--- NOTE | 2018-01-02 14:03 | P.PN ---
Subjective Progress Note Date: 01/02/18 The patient is a 67-year-old female with protracted course following cardiac surgery. She has long-standing ileus that is now resolving. She is on TPN. She is tolerating tube feeds currently at 20 mL/h. She is awake and alert. No reports of abdominal pain. Her bowels are functioning. Objective - Vital Signs Vital signs: Vital Signs Temp 97.7 F 01/02/18 12:00 Pulse 128 H 01/02/18 13:00 Resp 20 01/02/18 13:00 BP 116/54 12/19/17 10:00 Pulse Ox 97 01/02/18 13:00 Intake & Output 01/01/18 01/02/18 01/02/18 18:59 06:59 18:59 Intake Total 1196 496 751 Output Total 985 425 520 Balance 211 71 231 Weight 97.7 kg 96.6 kg Intake: IV 1196 256 391 Albumin Human 25% 50 ml 50 In Empty Bag 1 bag @ 100 mls/hr IVPB ONCE ONE Rx#: [id number] Dextrose 5%-0.45% NaCl 1, 120 120 70 000 ml @ 10 mls/hr IV . Q24H [facility] Rx#:[id number] Meropenem 1 gm In Sodium 100 100 100 Chloride 0.9% 100 ml @ 200 mls/hr IVPB Q8HR [facility] Rx#:[id number] Mvi, Adult No.4 with Vit 640 K 10 ml Trace (Conc-1Ml/ Dose) 1 ml In Foote 3.3%/ Dex 9.8%/Lipid/Lytes 1, 540 ml @ 64 mls/hr IV . Q24H [facility] Rx#:[id number] Pressure Bag 36 36 21 Vancomycin 1,500 mg In 250 Sodium Chloride 0.9% 250 ml @ 125 mls/hr IVPB Q36H [facility] Rx#:[id number] potassium 200 Tube Feeding 150 180 Other 90 180 Output: Gastric Drainage 125 Drainage 110 135 160 Right Abdomen 110 135 160 Urine 750 290 360 Other: Voiding Method Indwelling Catheter Indwelling Catheter Indwelling Catheter # Bowel Movements 1 1 ABP, PAP, CO, CI - Last Documented Arterial Blood Pressure 107/66 Pulmonary Artery Pressure 38/33 Cardiac Output 5.8 Cardiac Index 2.9 - Exam GENERAL: Well developed and in no acute distress. HEENT: No sclera icterus. Extraocular movements grossly intact. NGT present NECK: Tracheostomy present, and clean dry and intact. CHEST: Non-labored respirations and equal bilateral excursions. CARDIOVASCULAR: Tachycardic. Heart rate improved from 140s to 120s ABDOMEN: Obese, soft, nontender MUSCULOSKELETAL: No clubbing, cyanosis. NEUROLOGIC: No focal or lateralizing signs. PSYCH: Alert and oriented to person. SKIN: Well perfused. - Labs CBC & Chem 7: 01/02/18 04:25 01/02/18 12:19 Labs: Abnormal Lab Results - Last 24 Hours (Table) 01/01/18 01/02/18 01/02/18 Range/Units 14:31 04:25 04:25 WBC 12.0 H (3.8-10.6) k/uL RBC 3.03 L (3.80-5.40) m/uL Hgb 8.0 L (11.4-16.0) gm/dL Hct 26.0 L (34.0-46.0) % MCHC 30.7 L (31.0-37.0) g/dL RDW 19.7 H (11.5-15.5) % ABG pH (7.35-7.45) ABG HCO3 (21-25) mmol/L ABG Total CO2 (19-24) mmol/L ABG O2 Saturation (94-97) % BUN 42 H (7-17) mg/dL POC Glucose (mg/dL) 109 H (75-99) mg/dL 01/02/18 Range/Units 05:12 WBC (3.8-10.6) k/uL RBC (3.80-5.40) m/uL Hgb (11.4-16.0) gm/dL Hct (34.0-46.0) % MCHC (31.0-37.0) g/dL RDW (11.5-15.5) % ABG pH 7.50 H (7.35-7.45) ABG HCO3 32 H (21-25) mmol/L ABG Total CO2 33 H (19-24) mmol/L ABG O2 Saturation 98.8 H (94-97) % BUN (7-17) mg/dL POC Glucose (mg/dL) (75-99) mg/dL Assessment and Plan (1) Supraventricular tachycardia Current Visit: Yes Status: Acute Code(s): I47.1 - SUPRAVENTRICULAR TACHYCARDIA SNOMED Code(s): 3219437 (2) Morbid obesity due to excess calories Current Visit: Yes Status: Acute Code(s): E66.01 - MORBID (SEVERE) OBESITY DUE TO EXCESS CALORIES SNOMED Code(s): 920585986 (3) Ileus, postoperative Current Visit: Yes Status: Acute Code(s): K91.89 - OTH POSTPROCEDURAL COMPLICATIONS AND DISORDERS OF DGSTV SYS; K56.7 - ILEUS, UNSPECIFIED SNOMED Code(s): 359837373 Plan: 1. Recommend tube feeds to goal. 2. TPN may be discontinued once tube feed goals are reached.
[2018-01-02] MEDS ORDERED: Potassium Replacement Protocol 1 EACH MISC MISCELLANE PRN (14:51)
[2018-01-02] MEDS ORDERED: POTASSIUM BICARBONATE/CIT AC 20 MEQ TABLET.EFF NG-TUBE ONE (15:00)
--- NOTE | 2018-01-02 16:35 | P.PN ---
Subjective Progress Note Date: 01/02/18 Principal diagnosis: Status post mitral wall replacement and CABG Interval history: This is 67-year-old female status post CABG, mitral valve replacement, status post multiple blood products transfusions. Remains vent dependent with tracheostomy 35% FiO2/+5 of PEEP. 01/02/2018 Patient is awake alert and remained on mechanical ventilator. Patient is afebrile. Still having it fibrillation with rapid regular rate. Continued on wound VAC and also having right abdominal HENRI drain. Patient was started back on NG tube feeding and is tolerating slowly. TPN is on hold. Patient is being continued on antibiotics in the form of meropenem and vancomycin. Continued on Cardizem metoprolol and amiodarone. Chest x-ray showed increased pulmonary vascular congestion and cardiomegaly. WBC 12.0. C. diff negative. Renal function normalized. No fever no chills. All other review of systems negative except the above Active Medications Generic Name Dose Route Start Last Admin Trade Name Freq PRN Reason Stop Dose Admin Hydrocodone Bitart/Acetaminophen 1 each 12/01/17 12:20 12/29/17 20:48 [place] 5-325 PO 1 each Q4HR PRN Administration MILD TO MODERATE Pain Hydrocodone Bitart/Acetaminophen 2 each 12/01/17 12:20 12/17/17 17:05 [place] 5-325 PO 2 each Q4HR PRN Administration MODERATE TO SEVERE Pain Albuterol/Ipratropium 3 ml 11/26/17 17:53 12/08/17 05:16 Duone[place] 0.5 Mg-3 Mg/3 Ml Soln INHALATION 3 ml RT-Q2H PRN Administration Shortness Of Breath Or Wheezing Albuterol/Ipratropium 3 ml 12/23/17 16:00 01/02/18 15:48 Duoneb 0.5 Mg-3 Mg/3 Ml Soln INHALATION 3 ml RT-Q4H CARLEE Administration Alprazolam 0.25 mg 12/27/17 02:07 12/30/17 21:11 Xanax PO 0.25 mg DAILY PRN Administration Anxiety Amiodarone HCl 200 mg 12/30/17 21:00 01/02/18 08:50 Cordarone PO 200 mg BID CARLEE Administration Aspirin 81 mg 11/26/17 10:15 01/02/18 08:50 Aspirin PO 81 mg DAILY CARLEE Administration Atorvastatin Calcium 40 mg 11/26/17 09:00 01/02/18 08:50 Lipitor PO 40 mg DAILY CARLEE Administration Benzocaine 1 spray 12/31/17 10:45 01/01/18 21:27 Hurricaine [place] MUCOUS MEM 1 spray QID PRN Administration Mouth Irritation Budesonide 1 mg 12/01/17 20:00 01/02/18 07:39 Pulmicort INHALATION 1 mg RT-BID CARLEE Administration Diltiazem HCl 60 mg 12/31/17 14:00 01/02/18 14:52 Cardizem Oral PO 60 mg Q8H CARLEE Administration Escitalopram Oxalate 10 mg 12/07/17 21:00 01/01/18 21:03 Lexapro PO 10 mg HS CARLEE Administration Heparin Sodium (Porcine) 5,000 unit 12/22/17 10:15 01/02/18 08:48 Heparin SQ 5,000 unit Q8HR CARLEE Administration Dextrose/Sodium Chloride 1,000 mls @ 10 mls/hr 12/23/17 09:30 01/02/18 10:09 Dextrose 5%-1/2ns Iv Soln IV 10 mls/hr .Q24H CARLEE Administration Meropenem 1 gm/ Sodium 100 mls @ 200 mls/hr 12/29/17 16:00 01/02/18 08:48 Chloride IVPB 200 mls/hr Q8HR CARLEE Administration Vancomycin HCl 1,500 mg/ 250 mls @ 125 mls/hr 01/03/18 09:00 Sodium Chloride IVPB Q36H CARLEE Insulin Aspart 0 unit 12/16/17 00:00 01/02/18 12:16 Novolog SQ Not Given Q6H [facility] Protocol Lactobacillus Acidoph/Bulgaricus 1 each 12/13/17 16:00 01/02/18 08:49 Lactinex PO 1 each TID CARLEE Administration Magnesium Hydroxide 2,400 mg 11/26/17 17:53 Milk Of Magnesia PO BID PRN Constipation Metoclopramide HCl 10 mg 12/27/17 12:10 01/02/18 12:31 Reglan IVP 10 mg Q6HR CARLEE Administration Metoprolol Tartrate 75 mg 12/30/17 21:00 01/02/18 08:50 Lopressor NG-TUBE 75 mg BID CARLEE Administration Miscellaneous Information 1 each 11/25/17 19:03 Magnesium Per Protocol MISCELLANE DAILY PRN Per Protocol Protocol Miscellaneous Information 1 each 12/15/17 08:28 Phosphorus Per Protocol MISCELLANE DAILY PRN Per Protocol Protocol Miscellaneous Information 1 each 12/15/17 09:19 Communication To Pharmacy PO ONCE PRN See Comments Miscellaneous Information 1 each 12/30/17 03:19 Potassium Per Protocol MISCELLANE DAILY PRN Per Protocol Protocol Morphine Sulfate 2 mg 01/02/18 07:48 Morphine Sulf IVP Q4HR PRN Breakthrough Pain Ondansetron HCl 4 mg 11/25/17 19:03 12/27/17 13:58 Zofran IVP 4 mg Q6HR PRN Administration Nausea And Vomiting Pantoprazole Sodium 40 mg 12/05/17 07:30 01/02/18 08:49 Protonix PO 40 mg AC-BRKFST CARLEE Administration Saliva Substitute 1 spray 12/28/17 14:22 12/28/17 19:17 Mouthkote Solution MUCOUS MEM 1 spray QID PRN Administration Dry Mouth Senna/Docusate Sodium 2 each 11/26/17 21:00 01/01/18 21:06 Senokot-S PO 2 each HS CARLEE Administration Silver Sulfadiazine 1 applic 01/01/18 09:00 01/02/18 08:51 Silvadene Cream TOPICAL 1 applic BID CARLEE Administration Sodium Chloride 10 ml 11/25/17 21:00 01/02/18 08:51 Saline Flush IV 10 ml BID CARLEE Administration Objective - Vital Signs Vital signs: Vital Signs Temp 97.7 F 01/02/18 12:00 Pulse 129 H 01/02/18 15:57 Resp 24 01/02/18 14:00 BP 116/54 12/19/17 10:00 Pulse Ox 98 01/02/18 14:00 Intake & Output 01/01/18 01/02/18 01/02/18 18:59 06:59 18:59 Intake Total 1196 496 784 Output Total 985 425 550 Balance 211 71 234 Weight 97.7 kg 96.6 kg Intake: IV 1196 256 404 Albumin Human 25% 50 ml 50 In Empty Bag 1 bag @ 100 mls/hr IVPB ONCE ONE Rx#: [id number] Dextrose 5%-0.45% NaCl 1, 120 120 80 000 ml @ 10 mls/hr IV . Q24H CARLEE Rx#:[id number] Meropenem 1 gm In Sodium 100 100 100 Chloride 0.9% 100 ml @ 200 mls/hr IVPB Q8HR CARLEE Rx#:[id number] Mvi, Adult No.4 with Vit 640 K 10 ml Trace (Conc-1Ml/ Dose) 1 ml In [place] 3.3%/ Dex 9.8%/Lipid/Lytes 1, 540 ml @ 64 mls/hr IV . Q24H CARLEE Rx#:[id number] Pressure Bag 36 36 24 Vancomycin 1,500 mg In 250 Sodium Chloride 0.9% 250 ml @ 125 mls/hr IVPB Q36H CARLEE Rx#:[id number] potassium 200 Tube Feeding 150 200 Other 90 180 Output: Gastric Drainage 125 Drainage 110 135 160 Right Abdomen 110 135 160 Urine 750 290 390 Other: Voiding Method Indwelling Catheter Indwelling Catheter Indwelling Catheter # Bowel Movements 1 1 ABP, PAP, CO, CI - Last Documented Arterial Blood Pressure 103/63 Pulmonary Artery Pressure 38/33 Cardiac Output 5.8 Cardiac Index 2.9 - Exam GENERAL: Sitting up in bed, on mechanical ventilation HEENT: Conjunctivae normal. eyes normal. NG tube present. NECK: No JVD. Tracheostomy tube present CARDIOVASCULAR: S1, S2 muffled , tachycardic,no gallops, no murmurs RESPIRATION: Breath sounds diminished in the bases,coarse. Sternal wound VAC dressing present. ABDOMEN: Distended, tympanic, right-sided abdominal dressing clean dry and intact with HENRI- large amount of serous drainage, hypoactive bowel sounds Extremities: Improving edema PSYCHIATRY:/NERVOUS SYSTEM: Unable to assess as patient on mechanical ventilation, Skin: Midsternal dressing clean dry and intact, right medial buttock & right buttock optifoam dressing intact, right wrist area ulcerations-dressing clean dry and intact.posterior scalp with pressure ulceration resting on a offload- cushion - Labs CBC & Chem 7: 01/02/18 04:25 01/02/18 12:19 Labs: Abnormal Lab Results - Last 24 Hours (Table) 01/02/18 01/02/18 01/02/18 Range/Units 04:25 04:25 05:12 WBC 12.0 H (3.8-10.6) k/uL RBC 3.03 L (3.80-5.40) m/uL Hgb 8.0 L (11.4-16.0) gm/dL Hct 26.0 L (34.0-46.0) % MCHC 30.7 L (31.0-37.0) g/dL RDW 19.7 H (11.5-15.5) % ABG pH 7.50 H (7.35-7.45) ABG HCO3 32 H (21-25) mmol/L ABG Total CO2 33 H (19-24) mmol/L ABG O2 Saturation 98.8 H (94-97) % BUN 42 H (7-17) mg/dL Microbiology - Last 24 Hours (Table) 01/02/18 06:00 Stool Culture - Preliminary Stool Assessment and Plan Assessment: 1. Status post CABG with mitral valve replacement 2. Acute blood loss anemia with massive blood transfusions postoperatively, in a patient with history of GI bleed 3. Hypertension 4. Left subclavian stenosis 5. Proximal atrial fibrillation/flutter status post cardioversion with recurrence of atrial fibrillation 6. Acute Hypoxic respiratory failure, Re intubated x2. Status post tracheostomy 7. Obesity, BMI 41.6 8. S/P PICC line placement 9. 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 Acute UTI Serratia marcescens, E. coli 11. Bilateral pleural effusions, improved with diuretics. Possible aspiration pneumonia, possible fluid overload. 12. Sternal wound debridement, culture growing Serratia marcescens, status post wound VAC. Status post sternal flap grafting. 13. Pressure ulceration of back and buttocks, stage III 14. Diarrhea, ruling out C. difficile colitis. 15. Status post bronchoscopy with left lower lobe mucous plug discovered 16. ileus. Improved. Started on NG tube feeding. TPN on hold Plan: Patient will be continued on Cardizem, amiodarone and beta krunal for better heart rate control. Continue with antibiotics. Continue with aspirin statins. Continue the wound care and follow-up culture reports. Patient is still on mechanical ventilation. Follow up closely. Further recommendations based on the clinical course. Prognosis is guarded with multiple medical problems and cold conditions. Pulmonary and cardiology and ID is following. Time with Patient: Greater than 30
[2018-01-02 18:45] LABS: Glucose,Whole Blood 94 mg/dL (75-99)
[2018-01-02] MEDS: ESCITALOPRAM 10 MG TAB PO SCH (20:33)
[2018-01-02] MEDS: SENNOSIDES-DOCUSATE SODIUM 1 EACH TAB PO SCH (20:35)
[2018-01-02] MEDS: BENZOCAINE SPRAY 1 CAN MUCOUS MEM PRN (20:44)
[2018-01-02 23:55] LABS: Glucose,Whole Blood 100 mg/dL (75-99)
[2018-01-03] MEDS: HEPARIN SODIUM,PORCINE 5,000 UNIT/ML 1 ML VIAL SQ SCH ×3 (00:13→16:01)
[2018-01-03] MEDS: MEROPENEM 1 GM in SODIUM CHLORIDE 0.9% 100 ML IVPB SCH ×3 (00:13→15:59)
[2018-01-03] MEDS: INSULIN ASPART 100 UNIT/ML 1 ML 10 ML VIAL SQ SCH ×4 (00:14→17:29)
[2018-01-03] MEDS: METOCLOPRAMIDE 5 MG/ML 2 ML VIAL IVP SCH ×4 (00:24→17:29)
[2018-01-03] MEDS: IPRATROPIUM-ALBUTEROL 3 ML NEB INHALATION SCH ×6 (03:28→23:27)
[2018-01-03 04:56] LABS: Anisocytosis Slight; HCT 26.3 % (34.0-46.0); HGB 8.1 gm/dL (11.4-16.0); Hypochromasia Marked; MCH 26.3 pg (25.0-35.0); MCHC 30.6 g/dL (31.0-37.0); MCV 85.7 fL (80.0-100.0); Mean Platelet Volume 7.8; Platelet Count 332 k/uL (150-450); Poikilocytosis Slight; RBC 3.07 m/uL (3.80-5.40); RDW 19.8 % (11.5-15.5); WBC 13.7 k/uL (3.8-10.6)
[2018-01-03 05:02] LABS: ABG HCO3 31 mmol/L (21-25); ABG PCO2 38 mmHg (35-45); ABG PH 7.52 (7.35-7.45); ABG PO2 121 mmHg (83-108); ABG TCO2 32 mmol/L (19-24)
[2018-01-03 05:11] LABS: Calcium 8.9 mg/dL (8.4-10.2); Magnesium 2.1 mg/dL (1.6-2.3); Phosphorus 3.7 mg/dL (2.5-4.5); Potassium 4.1 mmol/L (3.5-5.1)
[2018-01-03] MEDS: DILTIAZEM ORAL 60 MG TAB PO SCH ×3 (07:07→21:46)
[2018-01-03] MEDS: BUDESONIDE 1 MG/2 ML NEBU INHALATION SCH ×2 (07:38→19:37)
[2018-01-03] MEDS: PANTOPRAZOLE 40 MG TABLET PO SCH (08:03)
[2018-01-03] MEDS: ASPIRIN 81 MG PO SCH (08:04)
[2018-01-03] MEDS: LACTOBACILLUS ACIDOPH & BULGAR 1 EACH PACKET PO SCH ×3 (08:04→21:45)
[2018-01-03] MEDS: AMIODARONE 200 MG TAB PO SCH ×2 (08:04→20:33)
[2018-01-03] MEDS: ATORVASTATIN 40 MG TAB PO SCH (08:04)
[2018-01-03] MEDS: METOPROLOL TARTRATE 50 MG TAB NG-TUBE SCH ×2 (08:04→20:33)
[2018-01-03] MEDS: VANCOMYCIN 1,500 MG in SODIUM CHLORIDE 0.9% 250 ML IVPB SCH (08:05)
--- NOTE | 2018-01-03 08:14 | XR ---
EXAMINATION TYPE: XR chest 1V portable DATE OF EXAM: 01/03/2018 COMPARISON: 01/02/2018 HISTORY: Post cardiac surgery TECHNIQUE: Single frontal view of the chest is obtained. FINDINGS: Postsurgical changes noted. Central line, tracheostomy tube and NG tube are stable. Bilate ral pleural effusion and consolidation with diffuse interstitial pattern. The heart is enlarged. Vasc ular stent noted overlying the left upper mediastinum. Atherosclerotic change aorta. IMPRESSION: 1. Bilateral infiltrate and pleural effusion correlate for CHF.
--- NOTE | 2018-01-03 08:32 | P.PN ---
Subjective Progress Note Date: 01/03/18 Principal diagnosis: Severe mitral regurgitation. Coronary artery disease. Paroxysmal atrial fibrillation on Coumadin for anticoagulation. Recent hospitalization for lower GI bleed, duodenal ulcer. History of left subclavian stenosis with stent placement 2014 with recent discovery of critical re-in-stent stenosis. Previous tobacco dependence with preoperative FEV1 60% of predicted. Hypertension. Hyperlipidemia. Gallbladder disease. Family history of heart disease. Preoperative nasal swab positive for MRSA. Preoperative anemia. POD #39 mitral valve replacement using a 25 mm Ribera bioprosthetic tissue valve. Coronary artery bypass grafting 1, reverse saphenous vein graft to the obtuse marginal artery. Maze procedure. Endoscopic harvesting of the right greater saphenous vein. Epi-aortic ultrasound. Intraoperative transesophageal echocardiogram. Ligation of the left atrial appendage using a 40 mm AtriClip. Intraoperative left ventricular wall tear, an unexpected but potential outcome of surgery Acute blood loss anemia, and expected outcome given patient's preoperative anemia and intraoperative bleeding. Postoperative prolonged mechanical ventilation secondary to hemodynamic instability, and unexpected but potential outcome of surgery given the extensive nature of her perioperative course. POD #10 placement of a #8 Shiley nonfenestrated tracheostomy tube. Sternal incision dehiscence, a possible outcome of surgery given patient's obesity, nutrition status, debility POD #13 right rectus abdominous muscle flap closure, open sternal wound. Closure of sternal wound and muscle flap with skin graft substitute, 238 cm. Implantation of reconstructive graft for closure of abdominal wall wound, [address] Krause POD #24 sternal wound debridement with placement of wound VAC. Postoperative left lower lobe collapse secondary to mucous plugging, and unexpected but potential outcome of surgery. Bronchial washings positive for Rachana species. POD #19 bronchoscopy and bronchoalveolar lavage of the left lower lobe and extraction of mucous plug. Postoperative ileus, an unexpected but potential outcome of surgery. The patient's currently sitting up in bed in no acute distress. Denies pain, shortness of breath. Patient had stool 2 yesterday. Tube feeding restarted per general surgery, patient appears to be tolerating well so far with minimal residual and no complaints of nausea. Still in rapid A. flutter but heart rate is down into the 120s. Objective - Vital Signs Vital signs: Vital Signs Temp 98.2 F 01/03/18 04:00 Pulse 121 H 01/03/18 07:00 Resp 25 H 01/03/18 07:00 BP 116/54 12/19/17 10:00 Pulse Ox 98 01/03/18 07:00 Intake & Output 01/02/18 01/03/18 01/03/18 18:59 06:59 18:59 Intake Total 1046 476 3 Output Total 980 2045 115 Balance 66 -1569 -112 Weight 96.7 kg Intake: IV 556 76 3 Dextrose 5%-0.45% NaCl 1, 120 40 000 ml @ 10 mls/hr IV . Q24H CARLEE Rx#:[id number] Meropenem 1 gm In Sodium 200 Chloride 0.9% 100 ml @ 200 mls/hr IVPB Q8HR CARLEE Rx#:[id number] Pressure Bag 36 36 3 potassium 200 Tube Feeding 310 400 Other 180 Output: Drainage 450 1750 100 Medial Chest Incision - 225 1575 Woundvac Right Abdomen 225 175 100 Urine 530 295 15 Other: Voiding Method Indwelling Catheter Indwelling Catheter # Bowel Movements 1 ABP, PAP, CO, CI - Last Documented Arterial Blood Pressure 104/59 Pulmonary Artery Pressure 38/33 Cardiac Output 5.8 Cardiac Index 2.9 - Constitutional General appearance: Present: cooperative, no acute distress, obese - Respiratory Details: Lungs sounds diminished bilaterally. Respirations even, nonlabored. Currently on mechanical ventilation, settings assist control mode, FiO2 35%, tidal volume 400, respiratory rate 20, PEEP 5. ABGs this morning 7.52/38/121/31/8.0/100% on 35% FiO2. #8 Sh[address] tracheostomy tube in place. Trachea is midline. - Cardiovascular Details: S1, S2 present. Regular, tachycardia rate and rhythm, rapid atrial flutter on telemetry. Open chest with wound VAC in place. Palpable peripheral pulses bilaterally. Bilateral lower extremity edema present. No calf pain or tenderness noted. Right axillary arterial line, left brachial PICC line present. Bilateral lower extremity Vance wrap's, SCDs present. - Gastrointestinal Gastrointestinal Comment(s): Abdomen is soft, nontender, less distended, less tympanic, obese. Active bowel sounds 4 quadrants. NG tube present. Tube feedings currently at 40 mL/h with minimal residual per nursing. - Genitourinary Genitourinary Comment(s): Mason present draining clear, yellow urine. Output 20-25 mL per hour overnight. - Integumentary Integumentary Comment(s): Skin is warm and dry with evidence of good perfusion. Open chest with wound VAC in place. Abdominal incision with intact maya. - Neurologic Neurologic: Present: CNII-XII intact - Musculoskeletal Musculoskeletal: Present: generalized weakness - Psychiatric Psychiatric: Present: A&O x's 3, appropriate affect, intact judgment & insight - Allied health notes Allied health notes reviewed: nursing - Labs CBC & Chem 7: 01/03/18 04:50 01/03/18 04:50 Labs: Abnormal Lab Results - Last 24 Hours (Table) 01/02/18 01/03/18 01/03/18 Range/Units 23:53 04:50 04:50 WBC 13.7 H (3.8-10.6) k/uL RBC 3.07 L (3.80-5.40) m/uL Hgb 8.1 L (11.4-16.0) gm/dL Hct 26.3 L (34.0-46.0) % MCHC 30.6 L (31.0-37.0) g/dL RDW 19.8 H (11.5-15.5) % ABG pH (7.35-7.45) ABG pO2 (83-108) mmHg ABG HCO3 (21-25) mmol/L ABG Total CO2 (19-24) mmol/L ABG O2 Saturation (94-97) % Carbon Dioxide 31 H (22-30) mmol/L BUN 43 H (7-17) mg/dL POC Glucose (mg/dL) 100 H (75-99) mg/dL 01/03/18 Range/Units 05:00 WBC (3.8-10.6) k/uL RBC (3.80-5.40) m/uL Hgb (11.4-16.0) gm/dL Hct (34.0-46.0) % MCHC (31.0-37.0) g/dL RDW (11.5-15.5) % ABG pH 7.52 H (7.35-7.45) ABG pO2 121 H (83-108) mmHg ABG HCO3 31 H (21-25) mmol/L ABG Total CO2 32 H (19-24) mmol/L ABG O2 Saturation 100.0 H (94-97) % Carbon Dioxide (22-30) mmol/L BUN (7-17) mg/dL POC Glucose (mg/dL) (75-99) mg/dL Microbiology - Last 24 Hours (Table) 01/02/18 06:00 Stool for WBCs - Final Stool 01/02/18 06:00 Stool Culture - Preliminary Stool - Imaging and Cardiology Chest x-ray: image reviewed Assessment and Plan (1) Acute blood loss anemia Current Visit: Yes Status: Acute Code(s): D62 - ACUTE POSTHEMORRHAGIC ANEMIA SNOMED Code(s): 648753346 (2) CAD (coronary artery disease) Current Visit: Yes Status: Chronic Code(s): I25.10 - ATHSCL HEART DISEASE OF [place] CORONARY ARTERY W/O ANG PCTRS SNOMED Code(s): 68092281 (3) Hyperlipidemia Current Visit: Yes Status: Chronic Code(s): E78.5 - HYPERLIPIDEMIA, UNSPECIFIED SNOMED Code(s): 05986238 (4) Hypertension Current Visit: Yes Status: Chronic Code(s): I10 - ESSENTIAL (PRIMARY) HYPERTENSION SNOMED Code(s): 25213981 (5) Severe mitral regurgitation Current Visit: Yes Status: Chronic Code(s): I34.0 - NONRHEUMATIC MITRAL ( VALVE) INSUFFICIENCY SNOMED Code(s): 73354419 (6) Stenosis of left subclavian artery Current Visit: Yes Status: Chronic Code(s): I77.1 - STRICTURE OF ARTERY SNOMED Code(s): 31244476229215762 (7) Paroxysmal atrial fibrillation Current Visit: No Status: Resolved Code(s): I48.0 - PAROXYSMAL ATRIAL FIBRILLATION SNOMED Code(s): 098309930 (8) History of GI bleed Current Visit: No Status: Resolved Code(s): Z87.19 - PERSONAL HISTORY OF OTHER DISEASES OF THE DIGESTIVE SYSTEM SNOMED Code(s): 720154164 (9) Family history of coronary artery disease Current Visit: Yes Status: Chronic Code(s): Z82.49 - FAMILY HX OF ISCHEM HEART DIS AND OTH DIS OF THE CIRC SYS SNOMED Code(s): 702943549 (10) Ileus, postoperative Current Visit: Yes Status: Acute Code(s): K91.89 - OTH POSTPROCEDURAL COMPLICATIONS AND DISORDERS OF DGSTV SYS; K56.7 - ILEUS, UNSPECIFIED SNOMED Code(s): 851737700 (11) Pressure ulcer of contiguous region involving back and buttock, stage 3 Current Visit: Yes Status: Acute Code(s): L89.43 - PRESSR ULCER OF CONTIG SITE OF BACK, BUTTOCK AND HIP, STG 3 SNOMED Code(s): 828503794 (12) Sternal wound dehiscence Current Visit: Yes Status: Acute Code(s): T81.32XA - DISRUPTION OF INTERNAL OPERATION (SURGICAL) WOUND, NEC, INIT SNOMED Code(s): 69476097 Plan: 1. Continue baby aspirin, statin, subcu heparin, beta krunal. Will increase beta krunal therapy as tolerated. 2. Continue amiodarone for atrial fibrillation prophylaxis. No further IV amiodarone. Dr. Crawley is aware of the patient's continued heart rate/rhythm. Dr. Carreno to discuss possibility of NILDA followed by cardioversion with Dr. Crawley. 3. Continue Cardizem for rate control. 4. Ventilator management per pulmonology. Wean as tolerated. 5. Continue meropenem, Vanco per Dr. Olivera. 6. Will monitor labs, chest x-rays. 7. Bronchodilators per pulmonology. 8. Will hold off on Coumadin as patient will need for future surgery for chest closure, possible PEG. No IV heparin. 9. GI/DVT prophylaxis. 10. Increase activity. PT/OT/cardiac rehab following. 11. Tube feedings restarted per Gen. surgery. Monitor for nausea, high residual. No contraindication to PEG tube placement per Dr. Krause. 12. Continue IV Reglan every 6 hours per general surgery. 13. Keep Mason for strict accurate intake and output. Change out every 7 days. 14. Wound VAC to be changed on Wednesday, Wednesday, and Wednesday by nurse practitioner. Will be changed today. 15. Local wound care to back of head and lower back. Silvadene for left upper thigh skin tear. 16. Will give Lasix IV today. 17. More recommendations as patient progresses. Patient will need evaluation for select specialty for discharge. Time with Patient: Greater than 30
--- NOTE | 2018-01-03 09:34 | P.PN ---
Subjective Progress Note Date: 01/03/18 Principal diagnosis: Status post open heart This is a pleasant 67-year-old female patient who sees Dr. Crawley as an outpatient who underwent an open heart surgery where she had CABG 1 associated with mitral valve replacement and maze procedure, with a postoperative course was complex and complicated by respiratory failure, chest incision dehiscence, where the patient did have to go to the OR again and have another surgery. Currently the patient is in chronic respiratory failure and she does have a tracheostomy She is also in congestive heart failure and fluid overload. beside that she is in persistent atrial flutter with a heart rate of 145 bpm continuously. The blood pressure has been marginally low. Currently she is on metoprolol, Cardizem, and she is on amiodarone by mouth. She is not on any anticoagulation for multiple reasons including bleeding and possible going to the OR again regarding the wound. On follow-up with the patient today she seems slightly better. The heart rate has improved from 145 bpm to 125 beats per minute. I will touch base with Dr. Crawley to see if the patient will benefit from any kind of cardioversion/ablation. Objective - Vital Signs Vital signs: Vital Signs Temp 98.5 F 01/03/18 08:00 Pulse 123 H 01/03/18 08:00 Resp 22 01/03/18 08:00 BP 116/54 12/19/17 10:00 Pulse Ox 97 01/03/18 08:00 Intake & Output 01/02/18 01/03/18 01/03/18 18:59 06:59 18:59 Intake Total 1046 476 271 Output Total 980 2045 160 Balance 66 -1569 111 Weight 96.7 kg Intake: IV 556 76 231 Dextrose 5%-0.45% NaCl 1, 120 40 000 ml @ 10 mls/hr IV . Q24H CARLEE Rx#:[id number] Meropenem 1 gm In Sodium 200 100 Chloride 0.9% 100 ml @ 200 mls/hr IVPB Q8HR CARLEE Rx#:[id number] Pressure Bag 36 36 6 Vancomycin 1,500 mg In 125 Sodium Chloride 0.9% 250 ml @ 125 mls/hr IVPB Q36H CARLEE Rx#:[id number] potassium 200 Tube Feeding 310 400 40 Other 180 Output: Drainage 450 1750 115 Medial Chest Incision - 225 1575 Woundvac Right Abdomen 225 175 115 Urine 530 295 45 Other: Voiding Method Indwelling Catheter Indwelling Catheter # Bowel Movements 1 ABP, PAP, CO, CI - Last Documented Arterial Blood Pressure 110/65 Pulmonary Artery Pressure 38/33 Cardiac Output 5.8 Cardiac Index 2.9 - Constitutional General appearance: Present: no acute distress - Respiratory Respiratory: bilateral: diminished - Cardiovascular Rhythm: regular - Labs CBC & Chem 7: 01/03/18 04:50 01/03/18 04:50 Labs: Abnormal Lab Results - Last 24 Hours (Table) 01/02/18 01/03/18 01/03/18 Range/Units 23:53 04:50 04:50 WBC 13.7 H (3.8-10.6) k/uL RBC 3.07 L (3.80-5.40) m/uL Hgb 8.1 L (11.4-16.0) gm/dL Hct 26.3 L (34.0-46.0) % MCHC 30.6 L (31.0-37.0) g/dL RDW 19.8 H (11.5-15.5) % ABG pH (7.35-7.45) ABG pO2 (83-108) mmHg ABG HCO3 (21-25) mmol/L ABG Total CO2 (19-24) mmol/L ABG O2 Saturation (94-97) % Carbon Dioxide 31 H (22-30) mmol/L BUN 43 H (7-17) mg/dL POC Glucose (mg/dL) 100 H (75-99) mg/dL 01/03/18 Range/Units 05:00 WBC (3.8-10.6) k/uL RBC (3.80-5.40) m/uL Hgb (11.4-16.0) gm/dL Hct (34.0-46.0) % MCHC (31.0-37.0) g/dL RDW (11.5-15.5) % ABG pH 7.52 H (7.35-7.45) ABG pO2 121 H (83-108) mmHg ABG HCO3 31 H (21-25) mmol/L ABG Total CO2 32 H (19-24) mmol/L ABG O2 Saturation 100.0 H (94-97) % Carbon Dioxide (22-30) mmol/L BUN (7-17) mg/dL POC Glucose (mg/dL) (75-99) mg/dL Microbiology - Last 24 Hours (Table) 01/02/18 06:00 Stool for WBCs - Final Stool 01/02/18 06:00 Stool Culture - Preliminary Stool Assessment and Plan Assessment: Assessment #1 respiratory failure #2 status post open heart and status post CABG and mitral valve replacement #3 persistent atrial flutter #4 congestive heart failure #5 sternal wound infection #6 peripheral vascular disease and known left subclavian stenosis #7 multiple comorbid conditions Plan #1 continue the Lasix IV #2 continue monitor the kidney function and electrolytes #3 cardioversion/ablation if the heart rate not controlled on medications
--- NOTE | 2018-01-03 10:49 | P.PN ---
Subjective Progress Note Date: 01/03/18 Principal diagnosis: Status post CABG and mitral valve replacement postoperative day #39. This is a 67-year-old female, status post 1 vessel bypass surgery and mitral valve replacement, patient is postoperative day #39. Patient also had surgical flap of the sternal 1 as she developed wound dehiscence and infection. Postoperative day #13. Patient also underwent tracheostomy and she is postoperative day #10. Patient remains on mechanical ventilation, continues to have chronic atelectasis and possible pneumonia in the left lower lobe, remains on assist control mode of mechanical ventilation, and today I will plan to try her on IMV and pressure support hoping to cut down the IMV rate gradually and possibly keep her on pressure support only. In the meantime the patient has been [facility] transfer to their facility. Cardiac-mcguire the patient remains in atrial flutter, ventricular rate is about 120. That is being addressed by cardiology on the case. Her ventilator settings are tidal volume of 400 assist control rate of 20 FiO2 of 35 % PEEP of 5. Toprol pressure is about 20. Chest x-ray as noted above. Suspect some component of mild congestive heart failure. And left lower lobe atelectasis. Labs were all reviewed, ABG showed a pO2 of 121 pCO2 of 38 pH of 7.52 basic metabolic profile is normal BUN is 43 creatinine 0.91 WBC count is 13.7 hemoglobin is 8.1. Objective - Vital Signs Vital signs: Vital Signs Temp 98.5 F 01/03/18 08:00 Pulse 121 H 01/03/18 09:00 Resp 24 01/03/18 09:00 BP 116/54 12/19/17 10:00 Pulse Ox 97 01/03/18 09:00 Intake & Output 01/02/18 01/03/18 01/03/18 18:59 06:59 18:59 Intake Total 1046 476 311 Output Total 503 7264 575 Balance 03 -2654 -534 Weight 96.7 kg Intake: IV 556 76 231 Dextrose 5%-0.45% NaCl 1, 120 40 000 ml @ 10 mls/hr IV . Q24H [facility] Rx#:[id number] Meropenem 1 gm In Sodium 200 100 Chloride 0.9% 100 ml @ 200 mls/hr IVPB Q8HR [facility] Rx#:[id number] Pressure Bag 36 36 6 Vancomycin 1,500 mg In 125 Sodium Chloride 0.9% 250 ml @ 125 mls/hr IVPB Q36H [facility] Rx#:[id number] potassium 200 Tube Feeding 310 400 80 Other 180 Output: Drainage 450 1750 595 Medial Chest Incision - 225 1575 450 Woundvac Right Abdomen 225 175 145 Urine 530 295 45 Other: Voiding Method Indwelling Catheter Indwelling Catheter # Bowel Movements 1 ABP, PAP, CO, CI - Last Documented Arterial Blood Pressure 102/62 Pulmonary Artery Pressure 38/33 Cardiac Output 5.8 Cardiac Index 2.9 - Exam General appearance: Present: cooperative, no acute distress, obese, the patient has a #8 tracheostomy Shiley trach tube in place. She is synchronous with the mechanical ventilator. She is awake and interactive. - Neck Details: Neck is supple, no JVD, no lymphadenopathy. Tracheostomy tube is midline and intact, sutures in place. - Respiratory Details: Lungs sounds essentially diminished at the left base, Respirations are symmetrical and nonlabored with mechanical ventilator support. Oxygen saturation are 99% with current ventilator settings. - Cardiovascular Details: Pain is tachycardic at regular rate and rhythm seems to be regular. This may be a a flutter with 2 to one block. S1 and S2 present, negative for S3 , gallop or murmur. - Gastrointestinal Gastrointestinal Comment(s): Abdomen is soft, obviously less tympanic and tender compared to yesterday and there is no significant distention.. The patient had diminished bowel sounds. No direct tenderness but no rebound tenderness. No guarding. Abdominal wound is dry clean and intact. The patient has a HENRI drain in the lower abdominal wall which is draining quite extensively. - Genitourinary Genitourinary Comment(s): Mason catheter for accurate I&O. Draining clear yellow urine. - Integumentary Integumentary Comment(s): Skin is warm and dry. No clubbing or cyanosis. Anasarca with scattered areas of blistering and weeping thin serous drainage. Pressure ulcerations to her buttocks with local wound care. Ulceration to her right wrist area with dressing in place with scant serous drainage. Dressing in place to her chest wound. - Neurologic Neurologic Comment(s): Alert and following verbal commands. Nodding her head yes and no appropriately to questions. Moving all 4 extremities appropriately with weak movements. - Musculoskeletal Musculoskeletal: Present: generalized weakness, strength equal bilaterally - Psychiatric Psychiatric Comment(s): Psychiatric: Normal mood, affect, and mental status examination noted. - Labs CBC & Chem 7: 01/03/18 04:50 01/03/18 04:50 Labs: Abnormal Lab Results - Last 24 Hours (Table) 01/02/18 01/03/18 01/03/18 Range/Units 23:53 04:50 04:50 WBC 13.7 H (3.8-10.6) k/uL RBC 3.07 L (3.80-5.40) m/uL Hgb 8.1 L (11.4-16.0) gm/dL Hct 26.3 L (34.0-46.0) % MCHC 30.6 L (31.0-37.0) g/dL RDW 19.8 H (11.5-15.5) % ABG pH (7.35-7.45) ABG pO2 (83-108) mmHg ABG HCO3 (21-25) mmol/L ABG Total CO2 (19-24) mmol/L ABG O2 Saturation (94-97) % Carbon Dioxide 31 H (22-30) mmol/L BUN 43 H (7-17) mg/dL POC Glucose (mg/dL) 100 H (75-99) mg/dL 01/03/18 Range/Units 05:00 WBC (3.8-10.6) k/uL RBC (3.80-5.40) m/uL Hgb (11.4-16.0) gm/dL Hct (34.0-46.0) % MCHC (31.0-37.0) g/dL RDW (11.5-15.5) % ABG pH 7.52 H (7.35-7.45) ABG pO2 121 H (83-108) mmHg ABG HCO3 31 H (21-25) mmol/L ABG Total CO2 32 H (19-24) mmol/L ABG O2 Saturation 100.0 H (94-97) % Carbon Dioxide (22-30) mmol/L BUN (7-17) mg/dL POC Glucose (mg/dL) (75-99) mg/dL Microbiology - Last 24 Hours (Table) 01/02/18 06:00 Stool for WBCs - Final Stool 01/02/18 06:00 Stool Culture - Preliminary Stool Assessment and Plan Assessment: 1 coronary artery bypass surgery with single-vessel bypass and mitral valve replacement/bioprosthetic valve. The patient is postop day #39 2 sternal wound infection with Serratia marcescens with subsequent dehiscence. The patient underwent wound debridement with subsequent muscle flap and the patient is postop day # 13. The patient remains on a combination of Merrem and vancomycin. The wound VAC is still in place and this is being replaced 3 times a week 3 prolonged ventilator dependent respiratory failure, status post tracheostomy tube insertion and the patient is postop day #10. Patient remains on assist control mode of ventilation . Weaning parameters that point the patient is not ready for further weaning at this point. 4 acute on chronic respiratory failure, multifactorial. The patient's sternal wound and the muscle flap is healing for now. 5 increased edema both upper and lower extremities, improving 6 tachycardia with an a flutter rhythm, cardiology is on the case. She is mainly maintained on oral medications. No plans to cardiovert per cardiology 7 peripheral vascular disease 8 left subclavian artery stenosis status post insertion of an endovascular stent 9 anemia, a expected outcome of prolonged ICU stay and multiple surgeries 10 ileus, improving patient is on enteral feeding 11 left lung collapse status post bronchoscopy and therapeutic it was suctioning. Patient has Rachana within the sputum currently on Diflucan. Most recent chest x-ray shows adequate rest of both lungs and there is some mild component of pulmonary congestion. 12 hypertension 13 hyperlipidemia 14 anemia multifactorial with a hemoglobin level of 8.1 today. Recommendation: Continue ventilatory support, patient was switched on IMV and pressure support mode of mechanical ventilation. Continue nutritional support. Continue antibiotics, continue wound VAC care, continue attempts to wean and hopefully to a pressure support only presently placed on IMV and pressure support. We'll continue to follow. Discussed her condition with her daughter at bedside. Critical care time is 35 minutes. Time with Patient: Greater than 30
[2018-01-03 11:33] LABS: Glucose,Whole Blood 113 mg/dL (75-99)
--- NOTE | 2018-01-03 11:37 | P.PN ---
Progress Note - Text Progress Note Date: 01/03/18 67-year-old seen in the ICU TPN is off tolerating tube feeds currently at 40 mL' s. Patient's more awake and alert. No reports of abdominal pain. Document bowel movement last night. At this time we'll sign off no further surgical recommendations at this time. Progress note dictated for Dr. Carlos robles on behalf of Dr. Lofton
[2018-01-03] MEDS ORDERED: FUROSEMIDE 10 MG/ML 2 ML VIAL IV ONE (16:12)
[2018-01-03] MEDS: DEXTROSE 5%-0.45% NACL 1,000 ML IV SCH (17:22)
[2018-01-03 17:29] LABS: Glucose,Whole Blood 100 mg/dL (75-99)
[2018-01-03] MEDS: SENNOSIDES-DOCUSATE SODIUM 1 EACH TAB PO SCH (20:33)
[2018-01-03] MEDS: ESCITALOPRAM 10 MG TAB PO SCH (20:33)
--- NOTE | 2018-01-03 22:05 | P.PN ---
Subjective Progress Note Date: 01/03/18 Principal diagnosis: Sternal wound dehiscence Pleasant 67-year-old female who has an extensive past medical history who is now 14 days postoperative from her open heart procedure it which point in time a mitral valve placement occurred, reverse saphenous vein coronary artery bypass grafting 1 to obtuse marginal, Maze procedure and ligation of the left atrial appendage all occurred interoperatively left ventricular wall tear occurred and was repaired. The patient has a known history of multiple medical troubles before her surgery that included her obesity, COPD and marked deconditioning. Patient has had difficulties recently that included urinary tract infection with E. coli and Serratia and has been treated with intravenous antibiotic therapy with Zosyn. She was having some improvement but then developed dehiscence of her sternal wound and there are plans for surgical debridement tomorrow wound culture showing gram-negative bacilli and with at the infectious diseases consultation was requested. The patient continues to have significant respiratory difficulties and is currently on BiPAP for support. Postoperatively the patient was hemodynamically unstable which made even turning of the patient not possible which has resulted in unavoidable areas of skin breakdown, that are now treatable given her improvement 12/10/2017 reveals the patient to be postoperative from the sternal wound debridement. The surgical note as well as discussion with the surgical team reveals evidence of poor bone quality and all of the sternal wires had pulled through her bony areas. Negative pressure therapy is in place. She is tolerating this well. Plastic surgery consult has been requested for reconstruction of her chest in the near future. Gram-negative bacilli growing from the sternal wound. She is quite comfortable after procedure, chest tube was placed of the left cavity and this is improved some left lung function and she seems less short of breath. The daughter is present and her questions were answered. 12/11/2017 reveals the patient to have had some respiratory distress today and is back on BiPAP at this time. She relates that her pain is under much significant control. Been no other new acute complaints are being made. 12/13/2017 the patient remains in the ICU she is currently on BiPAP but relates that she is quite comfortable. We will work with the nursing staff to change her VAC dressing at this time. await the plastic surgery timeline. 12/15/2017 reveals the patient to remain in intensive care unit, her status has worsened and that she developed flash pulmonary edema and respiratory failure requiring reintubation sedation mechanical ventilation. She underwent bronchoscopy today for removal of mucous plugs and to help with the collapsed left lower lobe. The patient has require some vasopressor support but is more stable this afternoon than earlier. She is sedated and comfortable. She has significant decline of hemoglobin is 7.6. Anticoagulation was held. Is being closely monitored by surgery and they await the plastic surgery intervention. 12/16/2017 cases briefly discussed with the cardiothoracic nurse practitioner in that the wound VAC is being changed today. It is unchanged with no difficulties. No further bleeding is noted. Plastic surgery evaluation apparently will occur tomorrow so the surgical plan can be devised. 12/20/2017 since last visit current thoracic has again change the wound VAC without difficulties. She tolerated it well. She remains on the ventilator at this point in time, does not appear to have any plans for weaning because she will have her plastic closure over open chest tomorrow. She's been hemodynamically stable with intermittent atrial flutter. No significant changes of oxygen requirements, drainage from the wound VAC is minimal as is drainage from her chest tube. 12/21/2017 patient is status post the partial plastic closure of her sternal wound. Complete cardiac coverage occurred but only partial closure was possible. Oxygen requirements are improving postoperative and is being closely watched for any further blood loss anemia. 12/23/2017 reveals the patient to be extubated on BiPAP. She is comfortable with her pain level is about a 2. Shortness of breath is not severe. She is unable to eat and a Dobbhoff will be placed a bit later today to help her with nutritional status to help her recovery. The current situation is discussed with the cardiothoracic surgeon team 12/24/2017 reveals evidence of the changes status in that she has now had a tracheostomy applied due to her chronic respiratory failure. Cardiothoracic surgery has changed the dressing today. Patient is comfortable after her surgery. Denies new acute discomforts. 12/25/2017 reveals that the patient is doing well with her tracheostomy. She is on 35% FiO2 with excellent saturations. The patient relates that she is comfortable her pain level is no more than a 4. She is receiving feedings via the Dobbhoff is tolerating that well but is having a few soft stools without swapnil diarrhea. 12/27/2017 patient remained stable after tracheostomy. With pain level is no more than a 2 at this point in time. Feedings via the Dobbhoff are going well. The wound VAC dressing was changed today without difficulties. Leukocytosis is improving. No hypotension. 12/28/2017. Overall the patient has been stable and that her pulmonary status without acute change. Doing well with the tracheostomy. Patient however developed significant abdominal distention with a tympanic abdomen. Abdominal x -ray revealed evidence of ileus. She's been seen by general surgery and they will determine if she needs an NG tube based on x-rays. She apparently is more comfortable this evening that she was earlier in the day. Nursing staff relates no fevers. 12/29/2017 patient is stable. Not having new acute difficulties. Is noted did have a pressure ulceration to the posterior aspect of the scalp that is being treated with a fall offloading cushion. Patient is actually quite comfortable today. Her ileus is starting to improve. Surgery he has no plans for surgical intervention into the abdomen. Is tolerating TPN. 12/30/2017 the patient is stable. She is doing well with her physical therapy and her antibiotic therapy for the sternal wound dehiscence. Ileus is improving and tolerating her TPN well. 12/31/2017 patient has been seen by the cardiothoracic team and wound VAC was changed without difficulty. She is having significant ongoing atrial flutter and has been seen by cardiology and they await medication effect for spontaneous transition back to a normal sinus mechanism that she has done the past. Patient is mildly short of breath but does well on the current ventilator settings. Her pain level is no more than a 2 and she is doing well with her physical therapy. NG tube was placed and this has given her relief of her distention and discomfort from her ileus 01/03/2018 patient is comfortable today. She has an IMV ventilation and other than some tiredness she relates she is doing well. Her pain level is 0. No difficulty with the recent dressing changes. Tolerating tube feeding at this point in time without abdominal pain. She is tolerating tube feeds well at this time. Objective - Vital Signs Vital signs: Vital Signs Temp 98.4 F 01/03/18 20:00 Pulse 120 H 01/03/18 20:00 Resp 21 01/03/18 20:00 BP 116/54 12/19/17 10:00 Pulse Ox 97 01/03/18 20:00 Intake & Output 01/03/18 01/03/18 01/04/18 06:59 18:59 06:59 Intake Total 476 1019 20 Output Total 2045 1060 205 Balance -1569 -41 -185 Weight 96.7 kg 96.7 kg Intake: IV 76 579 20 Dextrose 5%-0.45% NaCl 1, 40 90 20 000 ml @ 10 mls/hr IV . Q24H [facility] Rx#:[id number] Meropenem 1 gm In Sodium 200 Chloride 0.9% 100 ml @ 200 mls/hr IVPB Q8HR [facility] Rx#:[id number] Pressure Bag 36 39 Vancomycin 1,500 mg In 250 Sodium Chloride 0.9% 250 ml @ 125 mls/hr IVPB Q36H [facility] Rx#:[id number] Tube Feeding 400 440 Output: Drainage 1750 585 10 Medial Chest Incision - 1575 300 Woundvac Right Abdomen 175 285 10 Urine 295 475 195 Other: Voiding Method Indwelling Catheter Indwelling Catheter Indwelling Catheter ABP, PAP, CO, CI - Last Documented Arterial Blood Pressure 119/68 Pulmonary Artery Pressure 38/33 Cardiac Output 5.8 Cardiac Index 2.9 - Exam Obese 67-year-old woman who is now extubated on BiPAP HEENT: Anicteric conjunctiva are pink and moist nasal mucosa grossly intact without significant lesions, there is no thrush. Oral mucosa is dry but no swapnil lesions could be seen, NG tube is now placed. Neck: The neck is supple without significant lymphadenopathy or thyromegaly. Tracheostomy intact without bleeding there is evidence of the posterior scalp lesion please refer to the nursing photography. Lungs: Symmetrical air entry is noted. There is scattered crackles but no swapnil bronchial sounds Heart: Irregular with an audible S1 and S2 soft S4 no audible murmur no click or rub Chest: The patient's mid sternotomy incision is now covered with a postoperative dressing from the plastic closure which is reported to be a partial flap closure Abdomen: Obese, Positive bowel sounds soft and nontender without palpable masses or organomegaly. There was no guarding or rebound. Distention is slightly improved with initiation of the nasogastric tube and suction. Symptomatically she feels better Extremities: The upper and lower extremities have evidence of edema harvest site is intact there is some bruising that is noted especially on the left groin area. IV sites are intact. Skin: With the nursing staff the buttocks pressure ulcerations are evaluated which are showing improvement. The ulceration on the skin fold above her buttocks is also evaluated and appears to be improving. Also improvement of the ulceration to the right wrist area. Skin however is now having some blistering due to her hypoalbuminemia and excessive volume. Sternal wound dressing is dry and intact. Neuro: Comfortable at this time pain level 0, no acute changes neurologically - Labs CBC & Chem 7: 01/03/18 04:50 01/03/18 04:50 Labs: Abnormal Lab Results - Last 24 Hours (Table) 01/02/18 01/03/18 01/03/18 Range/Units 23:53 04:50 04:50 WBC 13.7 H (3.8-10.6) k/uL RBC 3.07 L (3.80-5.40) m/uL Hgb 8.1 L (11.4-16.0) gm/dL Hct 26.3 L (34.0-46.0) % MCHC 30.6 L (31.0-37.0) g/dL RDW 19.8 H (11.5-15.5) % ABG pH (7.35-7.45) ABG pO2 (83-108) mmHg ABG HCO3 (21-25) mmol/L ABG Total CO2 (19-24) mmol/L ABG O2 Saturation (94-97) % Carbon Dioxide 31 H (22-30) mmol/L BUN 43 H (7-17) mg/dL POC Glucose (mg/dL) 100 H (75-99) mg/dL 01/03/18 01/03/18 01/03/18 Range/Units 05:00 11:31 17:27 WBC (3.8-10.6) k/uL RBC (3.80-5.40) m/uL Hgb (11.4-16.0) gm/dL Hct (34.0-46.0) % MCHC (31.0-37.0) g/dL RDW (11.5-15.5) % ABG pH 7.52 H (7.35-7.45) ABG pO2 121 H (83-108) mmHg ABG HCO3 31 H (21-25) mmol/L ABG Total CO2 32 H (19-24) mmol/L ABG O2 Saturation 100.0 H (94-97) % Carbon Dioxide (22-30) mmol/L BUN (7-17) mg/dL POC Glucose (mg/dL) 113 H 100 H (75-99) mg/dL Microbiology - Last 24 Hours (Table) 12/10/17 10:40 Fungal Culture - Preliminary Chest 12/10/17 10:45 Fungal Culture - Preliminary Chest 12/10/17 10:50 Fungal Culture - Preliminary Chest 01/02/18 06:00 Stool for WBCs - Final Stool Laboratory Results WBC 13.7 k/uL (3.8-10.6) H 01/03/18 04:50 RBC 3.07 m/uL (3.80-5.40) L 01/03/18 04:50 Hgb 8.1 gm/dL (11.4-16.0) L 01/03/18 04:50 Hct 26.3 % (34.0-46.0) L 01/03/18 04:50 MCV 85.7 fL (80.0-100.0) 01/03/18 04:50 MCH 26.3 pg (25.0-35.0) 01/03/18 04:50 MCHC 30.6 g/dL (31.0-37.0) L 01/03/18 04:50 RDW 19.8 % (11.5-15.5) H 01/03/18 04:50 Plt Count 332 k/uL (150-450) 01/03/18 04:50 Neutrophils % 87 % 12/27/17 05:10 Neutrophils % (Manual) 98 % 12/05/17 04:25 Lymphocytes % 5 % 12/27/17 05:10 Lymphocytes % (Manual) 1 % 12/05/17 04:25 Monocytes % 4 % 12/27/17 05:10 Monocytes % (Manual) 1 % 12/05/17 04:25 Eosinophils % 2 % 12/27/17 05:10 Basophils % 0 % 12/27/17 05:10 Myelocytes % 1 % 12/03/17 04:15 Neutrophils # 9.3 k/uL (1.3-7.7) H 12/27/17 05:10 Neutrophils # (Manual) 26.95 k/uL (1.3-7.7) H 12/05/17 04:25 Lymphocytes # 0.5 k/uL (1.0-4.8) L 12/27/17 05:10 Lymphocytes # (Manual) 0.28 k/uL (1.0-4.8) L 12/05/17 04:25 Monocytes # 0.4 k/uL (0-1.0) 12/27/17 05:10 Monocytes # (Manual) 0.28 k/uL (0-1.0) 12/05/17 04:25 Eosinophils # 0.2 k/uL (0-0.7) 12/27/17 05:10 Basophils # 0.0 k/uL (0-0.2) 12/27/17 05:10 Myelocytes # (Manual) 0.17 k/uL (0) H 12/03/17 04:15 Nucleated RBCs 0 /100 WBC (0-0) 12/05/17 04:25 Manual Slide Review Performed 12/05/17 04:25 Polychromasia Present 12/03/17 04:15 Hypochromasia Marked 01/03/18 04:50 Poikilocytosis Slight 01/03/18 04:50 Anisocytosis Slight 01/03/18 04:50 Microcytosis Slight 12/17/17 04:45 Target Cells Present 12/03/17 04:15 PT 10.8 sec (9.0-12.0) 12/21/17 04:50 INR 1.1 (<1.2) 12/21/17 04:50 APTT 23.9 sec (22.0-30.0) 12/21/17 04:50 Fibrinogen 334 mg/dL (200-500) 11/26/17 04:22 Sample Site [place] 01/03/18 05:00 ABG pH 7.52 (7.35-7.45) H 01/03/18 05:00 ABG pCO2 38 mmHg (35-45) 01/03/18 05:00 ABG pO2 121 mmHg (83-108) H 01/03/18 05:00 ABG HCO3 31 mmol/L (21-25) H 01/03/18 05:00 ABG Total CO2 32 mmol/L (19-24) H 01/03/18 05:00 ABG O2 Saturation 100.0 % (94-97) H 01/03/18 05:00 ABG Base Excess 8.0 mmol/L 01/03/18 05:00 ABG Hematocrit 24 % (34.0-46.0) L 11/25/17 17:37 Robbi Test Yes 01/03/18 05:00 ABG Sodium 144 mmol/L (135-146) 11/25/17 17:37 ABG Potassium 3.8 mmol/L (3.4-4.5) 11/25/17 17:37 ABG Ionized Calcium 4.0 mg/dL (4.5-5.3) L 11/25/17 17:37 ABG Glucose 139 mg/dL (75-99) H 11/25/17 17:37 ABG Lactic Acid 2.8 mmol/L (0.5-1.6) H* 11/25/17 17:37 Hemoglobin 7.8 gm/dL (11.4-16.0) L 11/25/17 17:37 FiO2 35 % 01/03/18 05:00 Sodium 143 mmol/L (137-145) 01/03/18 04:50 Potassium 4.1 mmol/L (3.5-5.1) 01/03/18 04:50 Chloride 102 mmol/L (98-107) 01/03/18 04:50 Carbon Dioxide 31 mmol/L (22-30) H 01/03/18 04:50 Anion Gap 10 mmol/L 01/03/18 04:50 BUN 43 mg/dL (7-17) H 01/03/18 04:50 Creatinine 0.91 mg/dL (0.52-1.04) 01/03/18 04:50 Est GFR (MDRD) Af Amer >60 (>60 ml/min/1.73 sqM) 12/07/17 04:00 Est GFR (MDRD) Non-Af >60 (>60 ml/min/1.73 sqM) 12/07/17 04:00 Est GFR (CKD-EPI)AfAm 76 (>60 ml/min/1.73 sqM) 01/03/18 04:50 Est GFR (CKD-EPI)NonAf 65 (>60 ml/min/1.73 sqM) 01/03/18 04:50 Glucose 97 mg/dL (74-99) 01/03/18 04:50 POC Glucose (mg/dL) 100 mg/dL (75-99) H 01/03/18 17:27 POC Glu Studio Hand ID [place] 01/03/18 17:27 Calcium 8.9 mg/dL (8.4-10.2) 01/03/18 04:50 Ionized Calcium [place] 4.7 mg/dL (4.5-5.3) 12/11/17 15:45 Phosphorus 3.7 mg/dL (2.5-4.5) 01/03/18 04:50 Magnesium 2.1 mg/dL (1.6-2.3) 01/03/18 04:50 Total Bilirubin 0.4 mg/dL (0.2-1.3) 12/31/17 04:30 AST 36 U/L (14-36) 12/31/17 04:30 ALT 34 U/L (9-52) 12/31/17 04:30 Alkaline Phosphatase 88 U/L (38-126) 12/31/17 04:30 Total Protein 6.2 g/dL (6.3-8.2) L 12/31/17 04:30 Albumin 3.1 g/dL (3.5-5.0) L 12/31/17 04:30 Prealbumin 7.0 mg/dL (18.0-42.0) L 12/27/17 05:10 Triglycerides 130 mg/dL (<150) 12/29/17 11:45 Cholesterol 80 mg/dL (<200) 12/29/17 11:45 LDL Cholesterol, Calc 34 mg/dL (0-99) 12/29/17 11:45 HDL Cholesterol 20 mg/dL (40-60) L 12/29/17 11:45 Arterial Blood Potassium 3.8 mmol/L (3.4-4.5) 11/25/17 17:37 Arterial Blood Glucose 139 mg/dL (75-99) H 11/25/17 17:37 Urine Color Yellow 12/04/17 10:00 Urine Appearance Cloudy (Clear) H 12/04/17 10:00 Urine pH 5.5 (5.0-8.0) 12/04/17 10:00 Ur Specific [place] 1.015 (1.001-1.035) 12/04/17 10:00 Urine Protein Trace (Negative) H 12/04/17 10:00 Urine Glucose (UA) Negative (Negative) 12/04/17 10:00 Urine Ketones Negative (Negative) 12/04/17 10:00 Urine Blood Negative (Negative) 12/04/17 10:00 Urine Nitrite Negative (Negative) 12/04/17 10:00 Urine Bilirubin Negative (Negative) 12/04/17 10:00 Urine Urobilinogen <2.0 mg/dL (<2.0) 12/04/17 10:00 Ur Leukocyte Esterase Negative (Negative) 12/04/17 10:00 Urine RBC 7 /hpf (0-5) H 12/04/17 10:00 Urine WBC 1 /hpf (0-5) 12/04/17 10:00 Ur Squamous Epith Cells 8 /hpf (0-4) H 12/04/17 10:00 Urine Bacteria Occasional /hpf (None) H 12/04/17 10:00 Urine Mucus Rare /hpf (None) H 12/04/17 10:00 Fluid Source Bronchial Wash 12/15/17 10:40 Fluid Color Colorless 12/15/17 10:40 Fluid Appearance Cloudy 12/15/17 10:40 Fluid RBC 150 /uL 12/15/17 10:40 Fluid Nucleated Cells 6900 /uL 12/15/17 10:40 Fluid Polynuclear WBCs 95 % 12/15/17 10:40 Fluid Mononuclear WBCs 5 % 12/15/17 10:40 Stl Cryptosporidium Ag Negative (Negative) 01/02/18 06:00 Stool Giardia Source Stool 01/02/18 06:00 Stl Giardia Antigen Negative (Negative) 01/02/18 06:00 Vancomycin Trough 22.9 ug/mL 01/01/18 04:45 Random Vancomycin 21.2 ug/mL 12/16/17 04:15 Heparin-Ind Plt Ab Scrn 0.231 OD (<0.4) 11/29/17 04:50 C. difficile (EIA) Intrp Negative (Negative) 01/02/18 06:00 Virus Source See Below 12/15/17 10:40 Viral Test See Below 12/15/17 10:40 Virus Analysis Interp See Below 12/15/17 10:40 Blood Type A Positive 12/21/17 11:28 Blood Type Recheck No 12/21/17 11:28 Antibody Screen NEGATIVE 12/21/17 11:28 Crossmatch See Detail 12/14/17 10:10 Transfuse Cryo [id number] 11/26/17 00:39 Transfuse Plasma 12/15/2017 12/15/17 05:51 Transfuse Platelets [id number] 11/25/17 14:55 Spec Expiration Date 12/24/2017 - 232712/21/17 11:28 Microbiology 12/10/17 10:40 Chest Fungal Culture - Preliminary 12/10/17 10:45 Chest Fungal Culture - Preliminary 12/10/17 10:50 Chest Fungal Culture - Preliminary 01/02/18 06:00 Stool Stool for WBCs - Final 01/02/18 06:00 Stool Stool Culture - Preliminary 12/15/17 10:40 Bronchial Washings - Left Acid Fast Bacilli Smear - Final 12/15/17 10:40 Bronchial Washings - Left Acid Fast Bacilli Culture - Preliminary 12/10/17 10:50 Chest Acid Fast Bacilli Smear - Final 12/10/17 10:50 Chest Acid Fast Bacilli Culture - Preliminary 12/10/17 10:45 Chest Acid Fast Bacilli Smear - Final 12/10/17 10:45 Chest Acid Fast Bacilli Culture - Preliminary 12/24/17 11:30 Catheter Tip Catheter Tip Culture - Final 12/15/17 10:40 Bronchial Washings - Left Fungal Culture - Preliminary Rachana albicans 12/15/17 10:40 Bronchial Washings - Left Gram Stain - Final 12/15/17 10:40 Bronchial Washings - Left Bronchial Washings Culture - Final Rachana albicans 12/14/17 21:30 Sputum Gram Stain - Final 12/14/17 21:30 Sputum Sputum Culture - Final Rachana albicans 12/10/17 10:50 Chest Anaerobic Culture - Final 12/10/17 10:40 Chest Anaerobic Culture - Final 12/10/17 10:45 Chest Anaerobic Culture - Final 12/13/17 05:27 Urine,Catheterized Urine Culture - Final 12/10/17 10:40 Chest Gram Stain - Final 12/10/17 10:40 Chest Wound Culture - Final Serratia marcescens 12/10/17 10:45 Chest Gram Stain - Final 12/10/17 10:45 Chest Tissue Culture - Final Serratia marcescens 12/10/17 10:50 Chest Gram Stain - Final 12/10/17 10:50 Chest Tissue Culture - Final Serratia marcescens 12/07/17 15:40 Chest Gram Stain - Final 12/07/17 15:40 Chest Wound Culture - Final Serratia marcescens 12/04/17 10:00 Urine,Voided Urine Culture - Final Escherichia coli Serratia marcescens 11/26/17 04:00 Sputum Gram Stain - Final 11/26/17 04:00 Sputum Sputum Culture - Final Assessment and Plan (1) Severe mitral regurgitation Current Visit: Yes Status: Chronic Code(s): I34.0 - NONRHEUMATIC MITRAL ( VALVE) INSUFFICIENCY SNOMED Code(s): 31265077 (2) CAD (coronary artery disease) Current Visit: Yes Status: Chronic Code(s): I25.10 - ATHSCL HEART DISEASE OF [place] CORONARY ARTERY W/O ANG PCTRS SNOMED Code(s): 42774554 (3) Acute blood loss as cause of postoperative anemia Current Visit: Yes Status: Acute Code(s): D62 - ACUTE POSTHEMORRHAGIC ANEMIA SNOMED Code(s): 72235408877196221 (4) Pressure ulcer of contiguous region involving back and buttock, stage 3 Current Visit: Yes Status: Acute Code(s): L89.43 - PRESSR ULCER OF CONTIG SITE OF BACK, BUTTOCK AND HIP, STG 3 SNOMED Code(s): 466576755 (5) Sternal wound dehiscence Narrative/Plan: 67-year-old woman presents to Hospital for treatment of her severe mitral irritation. Underwent mitral valve replacement, coronary artery bypass grafting 1, Maze procedure and clipping of the left atrial appendage with a complication of the left ventricular wall tear. The patient has had a very protracted recovery she is now day 14 post operative and is still having difficulty with her respiratory status requiring BiPAP. The patient's nutritional status and underlying comorbidities have complicated her care. She now has evidence of the sternal dehiscence with evidence of gram negatives bacilli being found at the site. There is evidence of urinary tract infection with E. coli and Serratia. This Serratia species is somewhat resistant and consequently we'll alter the current antimicrobial therapy from Zosyn to meropenem to ensure coverage for other potential pathogens that are resistant that could be in the sternal wound while we await cultures. The patient will be going to the operating room tomorrow for debridement and wound VAC placement. The cultures were further direct the overall course of antibiotics. Urinary infection appears to be doing somewhat better. The patient fortunately is comfortable and doing well with her BiPAP. 12/10/2017 the patient is status post surgery and actually is feeling a bit better this afternoon than yesterday. Her pain is quite well controlled. She is not on BiPAP. She is less short of breath. Wound culture has verified the Serratia marcescens to the sternal wound. We'll constantly continue the current course of meropenem due to some of the resistance patterns or seeing with the species. Continue local care at this point time with the negative pressure system to the sternal wound. The plastic surgery consult is being requested for reconstruction of her chest. She will require a course of intravenous antibiotic therapy given her complex infection. Dual-lumen PICC is already in place. We'll repeat the discharge planners as to her place of rehab. 12/11/2017 the patient is metabolically stable but is having difficulties with her respiratory status and is now back on BiPAP which has been intermittent over the last multiple days. Negative pressure therapy remains intact and the sternum and we await the plastic surgery intervention. 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 Continue supportive care, and nutritional supplements as possible to improve for tissue healing. 12/13/2017 patient is on BiPAP. She is comfortable at this time. Receiving her intravenous antibiotic therapy without difficulties. At this time the surgeon present in a sterile fashion the wound VAC is removed. Surgeon evaluates and then the wound VAC is reapplied with 2 of the white foam, periwound protected with DuoDERM no difficulty with the seal. Merrem continues. 12/15/2017 the patient has had marked worsening of her status in that she had respiratory failure requiring reintubation and mechanical ventilation. She is now sedated and comfortable but has had some hemodynamic instability and is now back on vasopressor therapy. Bronchoscopy is performed and suctioning of mucous plugs as allowed some improvement of her pulmonary status. Further cultures are process. Meropenem and vancomycin continue for the isolated Serratia and concerns for resistant gram-positive infection at this time. Plastic surgery evaluation is in process and surgical plans for later this week appear to be possible. 12/16/2017 reveals the patient to be stable from the last 24 hours. Her ventilatory settings are similar. She's currently not on vasopressor therapy. She is tolerating current antibiotic therapy well with no difficulties with rash and diarrhea or marked changes of her hematological parameters. She's had no further active bleeding. Sputum culture with gram-positive cocci seen vancomycin was added we await final cultures. 12/20/2017 patient remained stable and is being prepped for her sternal reconstruction surgery tomorrow. She's not on vasopressor therapy, and vent settings are stable. Most recent bronchoscopy showed mucous plug no evidence of any new pathogens except yeast was found likely from upper airways. Fluconazole was added given her significant risks, although fungal pneumonia is not occurring at this time. At the time of reconstruction repeat samplings from her sternum will be helpful to help direct the course of antibiotic therapy , pathology and culture of the sternum will be helpful. Remains on the meropenem and vancomycin at this time. 12/21/2017 the patient is status post the sternal reconstruction with muscle flap, reportedly is only a partial closure at this time. However visit. The cardiac structure is completely covered. The patient is showing improvement in her cardiopulmonary status today. No active bleeding is noted. She is tolerating current antibiotic therapy well with meropenem and vancomycin. Await final culture and pathological data to help derive the course of her antibiotic therapy 12/23/2017 reveals the patient to be improved, she has been extubated and tolerating BiPAP well. The case is discussed with the cardiothoracic surgeon. The muscle flap was then performed and there is a biological skin substitute over the flap. She related that the plastic surgeon would not allow a wound VAC to be placed for approximately 10 days after the surgery. We will monitor. Continue current antibiotic therapy planning a multiweek course of therapy for the complex sternal wound infection. 12/24/2017 reveals the patient to have further improvement that she has had a tracheostomy placed. This will hopefully help her long-term weaning situation and also help with the nutritional difficulties. As she has improvement of her status hopefully the significant difference with her skin from the edema low albumin and blistering will improve. Receiving extensive antibiotic therapy for the sternal wound dehiscence will continue with the meropenem and vancomycin at this time. 12/25/2017 reveals the patient to have some improvement in the last 24 hours. She's doing well with a tracheostomy and is on 35% FiO2. Pain control is well at this point in time. Her spitting edema seems to be slightly improving and does not have as many blisters that she was having. Still does have anasarca but appears to be a bit less tight than she was a day ago. Her wounds are improving with the local wound care. Antibiotic therapy continues with meropenem and vancomycin for the sternal wound dehiscence and infection. Dressing changes have been per the cardiothoracic team to the chest wound. The abdominal wound is healing well and is having some serous drainage related to the anasarca. Hopefully with improving edema status and improve nutritional status anasarca will resolve. 12/27/2017 reveals a patient with further improvement. Her anasarca is improving and she is having less edema. She is tolerating the intravenous antibiotic therapy of meropenem and vancomycin for her sternal wound dehiscence. Leukocytosis in general is improved. No other new infections are noted. She had a wound VAC dressing change today of the sternal area. 12/28/2017 reveals the patient to have developed some bowel distention and concerns to ileus. She's been seen by general surgery. He will determine if she needs to have her Dobbhoff removed and an NG tube place. The patient has significant hypo albuminemia and is in need of the extensive supplementation, consequently TPN was requested per the surgeon. She will remain on her antibiotic therapy planning 6 weeks for the complex sternal dehiscence. Cardiothoracic surgery have changed her VAC dressing to her sternal wound. 12/29/2017 patient continues to tolerate antibiotic therapy well. Orders have been clarified for the 6 weeks of meropenem and vancomycin. cardiothoracic is in charge of the dressing changes to the complex sternal dehiscence wound. Tolerating TPN well with overall goal to improve her very low protein which will help her significant and extensive tissue edema. 12/30/2017 patient continues to have some improvement, if she is improving will likely go to select specialty for her long-term weaning of physical therapy.she is doing better from her ileus and TPN is being well-tolerated.will be on intravenous antibiotic therapy through 01/21/2018 12/31/2017 patient is stable at this time status post the NG tube has been placed for her ileus. Nutrition via TPN. Antibiotic therapy with the meropenem and vancomycin continues through 01/21/2018. Follow up cultures as indicated. Wound VAC is being changed as per cardiothoracic surgery. The pressure ulcerations to the buttocks area and posterior scalp are improving. 01/03/2018 reveals the patient to be feeling somewhat better today. Pain level is 0. Tolerating nutrition well at this point in time and has been cleared for a PEG tube to be placed to allow easier nutrition when she is ready for transfer to select specialty for long-term weaning. He has tolerated IMV trial today quite well. Antibiotic therapy continues to 01/21/2018. Current Visit: Yes Status: Acute Code(s): T81.32XA - DISRUPTION OF INTERNAL OPERATION (SURGICAL) WOUND, NEC, INIT SNOMED Code(s): 49896107
[2018-01-03] MEDS: HYDROcodone/APAP 5-325MG 1 EACH TAB PO PRN (22:19)
[2018-01-04] MEDS: INSULIN ASPART 100 UNIT/ML 1 ML 10 ML VIAL SQ SCH ×4 (00:13→17:06)
[2018-01-04 00:14] LABS: Glucose,Whole Blood 108 mg/dL (75-99)
[2018-01-04] MEDS: METOCLOPRAMIDE 5 MG/ML 2 ML VIAL IVP SCH ×5 (00:17→23:33)
[2018-01-04] MEDS: HEPARIN SODIUM,PORCINE 5,000 UNIT/ML 1 ML VIAL SQ SCH ×4 (00:17→23:33)
[2018-01-04] MEDS: MEROPENEM 1 GM in SODIUM CHLORIDE 0.9% 100 ML IVPB SCH ×4 (00:18→23:33)
[2018-01-04] MEDS: IPRATROPIUM-ALBUTEROL 3 ML NEB INHALATION SCH ×5 (03:49→19:34)
[2018-01-04 04:43] LABS: Anisocytosis Slight; Basophils % (A) 0 %; Eosinophils # (A) 0.2 k/uL (0-0.7); Eosinophils % (A) 2 %; HCT 24.5 % (34.0-46.0); HGB 7.6 gm/dL (11.4-16.0); Hypochromasia Marked; Lymphocytes # (A) 0.6 k/uL (1.0-4.8); Lymphocytes % (A) 6 %; MCH 26.8 pg (25.0-35.0); MCHC 30.9 g/dL (31.0-37.0); MCV 86.9 fL (80.0-100.0); Mean Platelet Volume 7.5; Monocytes # (A) 0.5 k/uL (0-1.0); Monocytes % (A) 5 %; Neutrophils # (A) 9.1 k/uL (1.3-7.7); Neutrophils % (A) 86 %; Platelet Count 271 k/uL (150-450); Poikilocytosis Slight; RBC 2.82 m/uL (3.80-5.40); RDW 19.5 % (11.5-15.5); WBC 10.6 k/uL (3.8-10.6)
[2018-01-04 04:55] LABS: Calcium 8.6 mg/dL (8.4-10.2); Phosphorus 3.7 mg/dL (2.5-4.5); Potassium 3.7 mmol/L (3.5-5.1)
[2018-01-04 06:25] LABS: Glucose,Whole Blood 116 mg/dL (75-99)
[2018-01-04] MEDS ORDERED: POTASSIUM BICARBONATE/CIT AC 20 MEQ TABLET.EFF NG-TUBE SCH (07:00)
[2018-01-04] MEDS: DILTIAZEM ORAL 60 MG TAB PO SCH ×3 (07:11→20:10)
[2018-01-04 07:57] LABS: ABG HCO3 31 mmol/L (21-25); ABG Oxygen Saturation 98.9 % (94-97); ABG PCO2 42 mmHg (35-45); ABG PH 7.49 (7.35-7.45); ABG PO2 99 mmHg (83-108); ABG TCO2 33 mmol/L (19-24)
[2018-01-04] MEDS: AMIODARONE 200 MG TAB PO SCH ×2 (08:02→20:10)
[2018-01-04] MEDS: ASPIRIN 81 MG PO SCH (08:03)
[2018-01-04] MEDS: ATORVASTATIN 40 MG TAB PO SCH (08:03)
[2018-01-04] MEDS: METOPROLOL TARTRATE 50 MG TAB NG-TUBE SCH ×2 (08:03→20:11)
[2018-01-04] MEDS: PANTOPRAZOLE 40 MG TABLET PO SCH (08:03)
[2018-01-04] MEDS: LACTOBACILLUS ACIDOPH & BULGAR 1 EACH PACKET PO SCH ×3 (08:03→20:11)
--- NOTE | 2018-01-04 08:09 | XR ---
EXAMINATION TYPE: XR chest 1V portable DATE OF EXAM: 01/04/2018 COMPARISON: 01/03/2018 HISTORY: Post cardiac surgery TECHNIQUE: Single frontal view of the chest is obtained. FINDINGS: Postsurgical changes noted. Central line, tracheostomy tube and NG tube are stable. Bilate ral pleural effusion and consolidation with diffuse interstitial pattern. The heart is enlarged. Vasc ular stent noted overlying the left upper mediastinum. Atherosclerotic change aorta. IMPRESSION: 1. Bilateral infiltrate and pleural effusion correlate for CHF.
[2018-01-04] MEDS: BUDESONIDE 1 MG/2 ML NEBU INHALATION SCH ×2 (08:26→19:34)
[2018-01-04] MEDS: POTASSIUM CHLORIDE 10 MEQ in WATER FOR INJECTION 1 100ML.BAG IVPB SCH ×2 (09:24→10:28)
[2018-01-04] MEDS ORDERED: FUROSEMIDE 10 MG/ML 2 ML VIAL IV ONE (10:15)
--- NOTE | 2018-01-04 10:16 | P.PN ---
Subjective Progress Note Date: 01/04/18 Principal diagnosis: Severe mitral regurgitation. Coronary artery disease. Paroxysmal atrial fibrillation on Coumadin for anticoagulation. Recent hospitalization for lower GI bleed, duodenal ulcer. History of left subclavian stenosis with stent placement 2014 with recent discovery of critical re-in-stent stenosis. Previous tobacco dependence with preoperative FEV1 60% of predicted. Hypertension. Hyperlipidemia. Gallbladder disease. Family history of heart disease. Preoperative nasal swab positive for MRSA. Preoperative anemia. POD #40 mitral valve replacement using a 25 mm Ribera bioprosthetic tissue valve. Coronary artery bypass grafting 1, reverse saphenous vein graft to the obtuse marginal artery. Maze procedure. Endoscopic harvesting of the right greater saphenous vein. Epi-aortic ultrasound. Intraoperative transesophageal echocardiogram. Ligation of the left atrial appendage using a 40 mm AtriClip. Intraoperative left ventricular wall tear, an unexpected but potential outcome of surgery Acute blood loss anemia, and expected outcome given patient's preoperative anemia and intraoperative bleeding. Postoperative prolonged mechanical ventilation secondary to hemodynamic instability, and unexpected but potential outcome of surgery given the extensive nature of her perioperative course. POD #11 placement of a #8 Shiley nonfenestrated tracheostomy tube. Sternal incision dehiscence, a possible outcome of surgery given patient's obesity, nutrition status, debility POD #12 right rectus abdominous muscle flap closure, open sternal wound. Closure of sternal wound and muscle flap with skin graft substitute, 238 cm. Implantation of reconstructive graft for closure of abdominal wall wound, [address] Krause POD #25 sternal wound debridement with placement of wound VAC. Postoperative left lower lobe collapse secondary to mucous plugging, and unexpected but potential outcome of surgery. Bronchial washings positive for Rachana species. POD #20 bronchoscopy and bronchoalveolar lavage of the left lower lobe and extraction of mucous plug. Postoperative ileus, an unexpected but potential outcome of surgery. The patient's currently sitting up in bed in no acute distress. Denies pain, shortness of breath. Tube feeding restarted per general surgery, patient appears to be tolerating well so far with minimal residual and no complaints of nausea. Still in rapid A. flutter but heart rate is down into the 120s. Weaned on SIMV yesterday for most of the day. Objective - Vital Signs Vital signs: Vital Signs Temp 98.4 F 01/04/18 08:00 Pulse 120 H 04/03/18 08:46 Resp 28 H 01/04/18 08:00 BP 116/54 12/19/17 10:00 Pulse Ox 98 01/04/18 08:00 Intake & Output 01/03/18 01/04/18 01/04/18 18:59 06:59 18:59 Intake Total 1019 597 293 Output Total 1060 550 210 Balance -41 47 83 Weight 96.7 kg 98.2 kg Intake: IV 579 237 113 Dextrose 5%-0.45% NaCl 1, 90 110 10 000 ml @ 10 mls/hr IV . Q24H [facility] Rx#:[id number] Meropenem 1 gm In Sodium 200 100 100 Chloride 0.9% 100 ml @ 200 mls/hr IVPB Q8HR [facility] Rx#:[id number] Pressure Bag 39 27 3 Vancomycin 1,500 mg In 250 Sodium Chloride 0.9% 250 ml @ 125 mls/hr IVPB Q36H [facility] Rx#:[id number] Tube Feeding 440 360 150 Other 30 Output: Drainage 585 85 135 Medial Chest Incision - 300 Woundvac Right Abdomen 285 85 135 Urine 475 465 75 Other: Voiding Method Indwelling Catheter Indwelling Catheter Indwelling Catheter ABP, PAP, CO, CI - Last Documented Arterial Blood Pressure 101/62 Pulmonary Artery Pressure 38/33 Cardiac Output 5.8 Cardiac Index 2.9 - Constitutional General appearance: Present: cooperative, no acute distress, obese - Respiratory Details: Lungs sounds bilaterally. Respirations even, nonlabored. Currently on mechanical ventilation. Settings assist control mode, FiO2 35%, to divide 400, respiratory rate 20, PEEP 5. ABGs this morning 7.49/42/99/31/80.0/98% on 35% FiO2. - Cardiovascular Details: S1, S2 present. Regular, tachycardia rate and rhythm, rapid atrial flutter on telemetry. Open chest with wound VAC in place. Palpable peripheral pulses bilaterally. Bilateral lower extremity edema present. No calf pain or tenderness noted. Legs with Vance wraps from toes to knees. SCDs present. Right axillary arterial line, left brachial PICC line present. - Gastrointestinal Gastrointestinal Comment(s): Abdomen soft, nontender, nondistended, obese, no tympany noted. Active bowel sounds 4 quadrants. NG tube present, tube feedings infusing at 50 mL per hour with minimal residual per nursing. - Genitourinary Genitourinary Comment(s): Mason present draining clear, medially urine. Output 15-25 mL/h overnight. Mason changed out this morning. - Integumentary Integumentary Comment(s): Skin is warm and dry. Anterior chest open with wound VAC in place. Abdominal incision was clean dry intact maya, drainage 75 mL in the last 8 hours. - Neurologic Neurologic: Present: CNII-XII intact - Musculoskeletal Musculoskeletal: Present: generalized weakness - Psychiatric Psychiatric: Present: A&O x's 3, appropriate affect, intact judgment & insight - Allied health notes Allied health notes reviewed: nursing - Labs CBC & Chem 7: 01/04/18 04:33 01/04/18 04:33 Labs: Abnormal Lab Results - Last 24 Hours (Table) 01/03/18 01/03/18 01/04/18 Range/Units 11:31 17:27 00:12 RBC (3.80-5.40) m/uL Hgb (11.4-16.0) gm/dL Hct (34.0-46.0) % MCHC (31.0-37.0) g/dL RDW (11.5-15.5) % Neutrophils # (1.3-7.7) k/uL Lymphocytes # (1.0-4.8) k/uL ABG pH (7.35-7.45) ABG HCO3 (21-25) mmol/L ABG Total CO2 (19-24) mmol/L ABG O2 Saturation (94-97) % Carbon Dioxide (22-30) mmol/L BUN (7-17) mg/dL POC Glucose (mg/dL) 113 H 100 H 108 H (75-99) mg/dL 01/04/18 01/04/18 01/04/18 Range/Units 04:33 04:33 06:23 RBC 2.82 L (3.80-5.40) m/uL Hgb 7.6 L (11.4-16.0) gm/dL Hct 24.5 L (34.0-46.0) % MCHC 30.9 L (31.0-37.0) g/dL RDW 19.5 H (11.5-15.5) % Neutrophils # 9.1 H (1.3-7.7) k/uL Lymphocytes # 0.6 L (1.0-4.8) k/uL ABG pH (7.35-7.45) ABG HCO3 (21-25) mmol/L ABG Total CO2 (19-24) mmol/L ABG O2 Saturation (94-97) % Carbon Dioxide 31 H (22-30) mmol/L BUN 43 H (7-17) mg/dL POC Glucose (mg/dL) 116 H (75-99) mg/dL 01/04/18 Range/Units 07:54 RBC (3.80-5.40) m/uL Hgb (11.4-16.0) gm/dL Hct (34.0-46.0) % MCHC (31.0-37.0) g/dL RDW (11.5-15.5) % Neutrophils # (1.3-7.7) k/uL Lymphocytes # (1.0-4.8) k/uL ABG pH 7.49 H (7.35-7.45) ABG HCO3 31 H (21-25) mmol/L ABG Total CO2 33 H (19-24) mmol/L ABG O2 Saturation 98.9 H (94-97) % Carbon Dioxide (22-30) mmol/L BUN (7-17) mg/dL POC Glucose (mg/dL) (75-99) mg/dL Microbiology - Last 24 Hours (Table) 12/10/17 10:40 Fungal Culture - Preliminary Chest 12/10/17 10:45 Fungal Culture - Preliminary Chest 12/10/17 10:50 Fungal Culture - Preliminary Chest - Imaging and Cardiology Chest x-ray: report reviewed, image reviewed Assessment and Plan (1) Acute blood loss anemia Current Visit: Yes Status: Acute Code(s): D62 - ACUTE POSTHEMORRHAGIC ANEMIA SNOMED Code(s): 691082288 (2) CAD (coronary artery disease) Current Visit: Yes Status: Chronic Code(s): I25.10 - ATHSCL HEART DISEASE OF [place] CORONARY ARTERY W/O ANG PCTRS SNOMED Code(s): 71830796 (3) Hyperlipidemia Current Visit: Yes Status: Chronic Code(s): E78.5 - HYPERLIPIDEMIA, UNSPECIFIED SNOMED Code(s): 51165679 (4) Hypertension Current Visit: Yes Status: Chronic Code(s): I10 - ESSENTIAL (PRIMARY) HYPERTENSION SNOMED Code(s): 07260113 (5) Severe mitral regurgitation Current Visit: Yes Status: Chronic Code(s): I34.0 - NONRHEUMATIC MITRAL ( VALVE) INSUFFICIENCY SNOMED Code(s): 57575564 (6) Stenosis of left subclavian artery Current Visit: Yes Status: Chronic Code(s): I77.1 - STRICTURE OF ARTERY SNOMED Code(s): 74978045912565545 (7) Paroxysmal atrial fibrillation Current Visit: No Status: Resolved Code(s): I48.0 - PAROXYSMAL ATRIAL FIBRILLATION SNOMED Code(s): 504652469 (8) History of GI bleed Current Visit: No Status: Resolved Code(s): Z87.19 - PERSONAL HISTORY OF OTHER DISEASES OF THE DIGESTIVE SYSTEM SNOMED Code(s): 803912754 (9) Family history of coronary artery disease Current Visit: Yes Status: Chronic Code(s): Z82.49 - FAMILY HX OF ISCHEM HEART DIS AND OTH DIS OF THE CIRC SYS SNOMED Code(s): 542303186 (10) Ileus, postoperative Current Visit: Yes Status: Acute Code(s): K91.89 - OTH POSTPROCEDURAL COMPLICATIONS AND DISORDERS OF DGSTV SYS; K56.7 - ILEUS, UNSPECIFIED SNOMED Code(s): 654583024 (11) Pressure ulcer of contiguous region involving back and buttock, stage 3 Current Visit: Yes Status: Acute Code(s): L89.43 - PRESSR ULCER OF CONTIG SITE OF BACK, BUTTOCK AND HIP, STG 3 SNOMED Code(s): 854100720 (12) Sternal wound dehiscence Current Visit: Yes Status: Acute Code(s): T81.32XA - DISRUPTION OF INTERNAL OPERATION (SURGICAL) WOUND, NEC, INIT SNOMED Code(s): 56911739 Plan: 1. Continue baby aspirin, statin, subcu heparin, beta krunal. 2. Continue amiodarone for atrial fibrillation prophylaxis. No further IV amiodarone. 3. Continue Cardizem for rate control. 4. Ventilator management per pulmonology. Wean as tolerated. 5. Patient to have PEG tube placed tomorrow, tube feeding to be stopped at midnight. 6. Continue meropenem, Vanco per Dr. Olivera. 7. Will monitor labs, chest x-rays. 8. Bronchodilators per pulmonology. 9. Will restart Coumadin after PEG tube is placed. Once therapeutic, Dr. Crawley will cardiovert patient. No IV heparin. 10. GI/DVT prophylaxis. 11. Increase activity. PT/OT/cardiac rehab following. 12. Continue IV Reglan every 6 hours per general surgery. 13. Keep Mason for strict accurate intake and output. Change out every 7 days , Mason changed today. 14. Wound VAC to be changed on Wednesday, Wednesday, and Wednesday by nurse practitioner. 15. Local wound care to back of head and lower back. Silvadene for left upper thigh skin tear. 16. Will give Lasix IV today. 17. More recommendations as patient progresses. Patient will need select specialty at discharge. Time with Patient: Greater than 30
--- NOTE | 2018-01-04 10:25 | P.PN ---
Subjective Principal diagnosis: Status post open heart This is a pleasant 67-year-old female patient who sees Dr. Crawley as an outpatient who underwent an open heart surgery where she had CABG 1 associated with mitral valve replacement and maze procedure, with a postoperative course was complex and complicated by respiratory failure, chest incision dehiscence, where the patient did have to go to the OR again and have another surgery. Currently the patient is in chronic respiratory failure and she does have a tracheostomy She is also in congestive heart failure and fluid overload. beside that she is in persistent atrial flutter with a heart rate of 145 bpm continuously. The blood pressure has been marginally low. Currently she is on metoprolol, Cardizem, and she is on amiodarone by mouth. She is not on any anticoagulation for multiple reasons including bleeding and possible going to the OR again regarding the wound. On follow-up with the patient today she seems slightly better. The heart rate has improved from 145 bpm to 120 beats per minute. The patient is going to have a PEG tube in the next 24 hours and subsequently she will be started on anticoagulation for possible cardioversion. Objective - Vital Signs Vital signs: Vital Signs Temp 98.4 F 01/04/18 08:00 Pulse 119 H 01/04/18 10:00 Resp 22 01/04/18 10:00 BP 116/54 12/19/17 10:00 Pulse Ox 98 01/04/18 10:00 Intake & Output 01/03/18 01/04/18 01/04/18 18:59 06:59 18:59 Intake Total 1019 597 446 Output Total 1060 550 270 Balance -41 47 176 Weight 96.7 kg 98.2 kg Intake: IV 579 237 216 Dextrose 5%-0.45% NaCl 1, 90 110 10 000 ml @ 10 mls/hr IV . Q24H [facility] Rx#:[id number] Meropenem 1 gm In Sodium 200 100 100 Chloride 0.9% 100 ml @ 200 mls/hr IVPB Q8HR [facility] Rx#:[id number] Pressure Bag 39 27 6 Vancomycin 1,500 mg In 250 Sodium Chloride 0.9% 250 ml @ 125 mls/hr IVPB Q36H [facility] Rx#:[id number] potassium 100 Tube Feeding 440 360 200 Other 30 Output: Drainage 585 85 165 Medial Chest Incision - 300 Woundvac Right Abdomen 285 85 165 Urine 475 465 105 Other: Voiding Method Indwelling Catheter Indwelling Catheter Indwelling Catheter ABP, PAP, CO, CI - Last Documented Arterial Blood Pressure 113/66 Pulmonary Artery Pressure 38/33 Cardiac Output 5.8 Cardiac Index 2.9 - Labs CBC & Chem 7: 01/04/18 04:33 01/04/18 04:33 Labs: Abnormal Lab Results - Last 24 Hours (Table) 01/03/18 01/03/18 01/04/18 Range/Units 11:31 17:27 00:12 RBC (3.80-5.40) m/uL Hgb (11.4-16.0) gm/dL Hct (34.0-46.0) % MCHC (31.0-37.0) g/dL RDW (11.5-15.5) % Neutrophils # (1.3-7.7) k/uL Lymphocytes # (1.0-4.8) k/uL ABG pH (7.35-7.45) ABG HCO3 (21-25) mmol/L ABG Total CO2 (19-24) mmol/L ABG O2 Saturation (94-97) % Carbon Dioxide (22-30) mmol/L BUN (7-17) mg/dL POC Glucose (mg/dL) 113 H 100 H 108 H (75-99) mg/dL 01/04/18 01/04/18 01/04/18 Range/Units 04:33 04:33 06:23 RBC 2.82 L (3.80-5.40) m/uL Hgb 7.6 L (11.4-16.0) gm/dL Hct 24.5 L (34.0-46.0) % MCHC 30.9 L (31.0-37.0) g/dL RDW 19.5 H (11.5-15.5) % Neutrophils # 9.1 H (1.3-7.7) k/uL Lymphocytes # 0.6 L (1.0-4.8) k/uL ABG pH (7.35-7.45) ABG HCO3 (21-25) mmol/L ABG Total CO2 (19-24) mmol/L ABG O2 Saturation (94-97) % Carbon Dioxide 31 H (22-30) mmol/L BUN 43 H (7-17) mg/dL POC Glucose (mg/dL) 116 H (75-99) mg/dL 01/04/18 Range/Units 07:54 RBC (3.80-5.40) m/uL Hgb (11.4-16.0) gm/dL Hct (34.0-46.0) % MCHC (31.0-37.0) g/dL RDW (11.5-15.5) % Neutrophils # (1.3-7.7) k/uL Lymphocytes # (1.0-4.8) k/uL ABG pH 7.49 H (7.35-7.45) ABG HCO3 31 H (21-25) mmol/L ABG Total CO2 33 H (19-24) mmol/L ABG O2 Saturation 98.9 H (94-97) % Carbon Dioxide (22-30) mmol/L BUN (7-17) mg/dL POC Glucose (mg/dL) (75-99) mg/dL Microbiology - Last 24 Hours (Table) 12/10/17 10:40 Fungal Culture - Preliminary Chest 12/10/17 10:45 Fungal Culture - Preliminary Chest 12/10/17 10:50 Fungal Culture - Preliminary Chest Assessment and Plan Assessment: Assessment #1 respiratory failure #2 status post open heart and status post CABG and mitral valve replacement #3 persistent atrial flutter #4 congestive heart failure #5 sternal wound infection #6 peripheral vascular disease and known left subclavian stenosis #7 multiple comorbid conditions Plan #1 anticoagulation after the PICC tube for cardioversion subsequently.
[2018-01-04 12:00] LABS: Glucose,Whole Blood 109 mg/dL (75-99)
[2018-01-04] MEDS: HYDROcodone/APAP 5-325MG 1 EACH TAB PO PRN ×2 (14:03→20:23)
--- NOTE | 2018-01-04 14:11 | P.PN ---
Subjective Progress Note Date: 01/04/18 Principal diagnosis: Status post CABG and mitral valve replacement postoperative day #40 This is a 67-year-old female, status post 1 vessel bypass surgery and mitral valve replacement, patient is postoperative day #39. Patient also had surgical flap of the sternal 1 as she developed wound dehiscence and infection. Postoperative day #13. Patient also underwent tracheostomy and she is postoperative day #10. Patient remains on mechanical ventilation, continues to have chronic atelectasis and possible pneumonia in the left lower lobe, remains on assist control mode of mechanical ventilation, and today I will plan to try her on IMV and pressure support hoping to cut down the IMV rate gradually and possibly keep her on pressure support only. In the meantime the patient has been evaluated by [facility] for possible transfer to their facility. Cardiac-mcguire the patient remains in atrial flutter, ventricular rate is about 120. That is being addressed by cardiology on the case. Her ventilator settings are tidal volume of 400 assist control rate of 20 FiO2 of 35 % PEEP of 5. Toprol pressure is about 20. Chest x-ray as noted above. Suspect some component of mild congestive heart failure. And left lower lobe atelectasis. Labs were all reviewed, ABG showed a pO2 of 121 pCO2 of 38 pH of 7.52 basic metabolic profile is normal BUN is 43 creatinine 0.91 WBC count is 13.7 hemoglobin is 8.1. Reevaluated today on 01/04/2018, patient remains on mechanical ventilation, with able to elevate many hours of pressure support of 12 and IMV of 6 yesterday. Today I plan to try pressure support of 12 and CPAP. Patient is scheduled to have a PEG tube placement is also scheduled to have cardioversion after a good course of anticoagulation and PICC line placement. Hopefully this will be all done this week, and then we can potentially consider transferring the patient to a select care specialty. ABG today showed a pO2 of 99 pCO2 of 42 pH of 7.49. Rest of the labs were noted to be unremarkable. Chest x-ray is basically the same, continues to show mild congestive changes, and left retrocardiac opacity with left lower lobe atelectasis. Objective - Vital Signs Vital signs: Vital Signs Temp 98.9 F 01/04/18 12:00 Pulse 119 H 01/04/18 13:00 Resp 17 01/04/18 13:00 BP 116/54 12/19/17 10:00 Pulse Ox 98 01/04/18 13:00 Intake & Output 01/03/18 01/04/18 01/04/18 18:59 06:59 18:59 Intake Total 1019 597 865 Output Total 1060 550 665 Balance -41 47 200 Weight 96.7 kg 98.2 kg Intake: IV 579 237 355 Dextrose 5%-0.45% NaCl 1, 90 110 40 000 ml @ 10 mls/hr IV . Q24H CARLEE Rx#:[id number] Meropenem 1 gm In Sodium 200 100 100 Chloride 0.9% 100 ml @ 200 mls/hr IVPB Q8HR CARLEE Rx#:[id number] Pressure Bag 39 27 15 Vancomycin 1,500 mg In 250 Sodium Chloride 0.9% 250 ml @ 125 mls/hr IVPB Q36H CARLEE Rx#:[id number] potassium 200 Tube Feeding 440 360 450 Other 60 Output: Drainage 585 85 275 Medial Chest Incision - 300 Woundvac Right Abdomen 285 85 275 Urine 475 465 390 Other: Voiding Method Indwelling Catheter Indwelling Catheter Indwelling Catheter ABP, PAP, CO, CI - Last Documented Arterial Blood Pressure 103/60 Pulmonary Artery Pressure 38/33 Cardiac Output 5.8 Cardiac Index 2.9 - Exam General appearance: Present: cooperative, no acute distress, obese, the patient has a #8 tracheostomy Shiley trach tube in place. She is synchronous with the mechanical ventilator. She is awake and interactive. - Neck Details: Neck is supple, no JVD, no lymphadenopathy. Tracheostomy tube is midline and intact, sutures in place. - Respiratory Details: Lungs sounds essentially diminished at the left base, Respirations are symmetrical and nonlabored with mechanical ventilator support. Oxygen saturation are 99% with current ventilator settings. - Cardiovascular Details: Pain is tachycardic at regular rate and rhythm seems to be regular. This may be a a flutter with 2 to one block. S1 and S2 present, negative for S3 , gallop or murmur. - Gastrointestinal Gastrointestinal Comment(s): Abdomen is soft, obviously less tympanic and tender compared to yesterday and there is no significant distention.. The patient had diminished bowel sounds. No direct tenderness but no rebound tenderness. No guarding. Abdominal wound is dry clean and intact. The patient has a HENRI drain in the lower abdominal wall which is draining quite extensively. - Genitourinary Genitourinary Comment(s): Mason catheter for accurate I&O. Draining clear yellow urine. - Integumentary Integumentary Comment(s): Skin is warm and dry. No clubbing or cyanosis. Anasarca with scattered areas of blistering and weeping thin serous drainage. Pressure ulcerations to her buttocks with local wound care. Ulceration to her right wrist area with dressing in place with scant serous drainage. Dressing in place to her chest wound. - Neurologic Neurologic Comment(s): Alert and following verbal commands. Nodding her head yes and no appropriately to questions. Moving all 4 extremities appropriately with weak movements. - Musculoskeletal Musculoskeletal: Present: generalized weakness, strength equal bilaterally - Psychiatric Psychiatric Comment(s): Psychiatric: Normal mood, affect, and mental status examination noted. - Labs CBC & Chem 7: 01/04/18 04:33 01/04/18 13:37 Labs: Abnormal Lab Results - Last 24 Hours (Table) 01/03/18 01/04/18 01/04/18 Range/Units 17:27 00:12 04:33 RBC (3.80-5.40) m/uL Hgb (11.4-16.0) gm/dL Hct (34.0-46.0) % MCHC (31.0-37.0) g/dL RDW (11.5-15.5) % Neutrophils # (1.3-7.7) k/uL Lymphocytes # (1.0-4.8) k/uL ABG pH (7.35-7.45) ABG HCO3 (21-25) mmol/L ABG Total CO2 (19-24) mmol/L ABG O2 Saturation (94-97) % Carbon Dioxide 31 H (22-30) mmol/L BUN 43 H (7-17) mg/dL POC Glucose (mg/dL) 100 H 108 H (75-99) mg/dL 01/04/18 01/04/18 01/04/18 Range/Units 04:33 06:23 07:54 RBC 2.82 L (3.80-5.40) m/uL Hgb 7.6 L (11.4-16.0) gm/dL Hct 24.5 L (34.0-46.0) % MCHC 30.9 L (31.0-37.0) g/dL RDW 19.5 H (11.5-15.5) % Neutrophils # 9.1 H (1.3-7.7) k/uL Lymphocytes # 0.6 L (1.0-4.8) k/uL ABG pH 7.49 H (7.35-7.45) ABG HCO3 31 H (21-25) mmol/L ABG Total CO2 33 H (19-24) mmol/L ABG O2 Saturation 98.9 H (94-97) % Carbon Dioxide (22-30) mmol/L BUN (7-17) mg/dL POC Glucose (mg/dL) 116 H (75-99) mg/dL 01/04/18 Range/Units 11:59 RBC (3.80-5.40) m/uL Hgb (11.4-16.0) gm/dL Hct (34.0-46.0) % MCHC (31.0-37.0) g/dL RDW (11.5-15.5) % Neutrophils # (1.3-7.7) k/uL Lymphocytes # (1.0-4.8) k/uL ABG pH (7.35-7.45) ABG HCO3 (21-25) mmol/L ABG Total CO2 (19-24) mmol/L ABG O2 Saturation (94-97) % Carbon Dioxide (22-30) mmol/L BUN (7-17) mg/dL POC Glucose (mg/dL) 109 H (75-99) mg/dL Microbiology - Last 24 Hours (Table) 12/10/17 10:40 Fungal Culture - Preliminary Chest 12/10/17 10:45 Fungal Culture - Preliminary Chest 12/10/17 10:50 Fungal Culture - Preliminary Chest Assessment and Plan Assessment: 1 coronary artery bypass surgery with single-vessel bypass and mitral valve replacement/bioprosthetic valve. The patient is postop day #40 2 sternal wound infection with Serratia marcescens with subsequent dehiscence. The patient underwent wound debridement with subsequent muscle flap and the patient is postop day # 14. The patient remains on a combination of Merrem and vancomycin. The wound VAC is still in place and this is being replaced 3 times a week 3 prolonged ventilator dependent respiratory failure, status post tracheostomy tube insertion and the patient is postop day #11. Patient remains on assist control mode of ventilation . We will try again IMV pressure support mode of mechanical ventilation and gradually transition to pressure support only with CPAP. 4 acute on chronic respiratory failure, multifactorial. The patient's sternal wound and the muscle flap is healing for now. 5 increased edema both upper and lower extremities, improving 6 tachycardia with an a flutter rhythm, cardiology is on the case. She is mainly maintained on oral medications. No plans to cardiovert per cardiology 7 peripheral vascular disease 8 left subclavian artery stenosis status post insertion of an endovascular stent 9 anemia, a expected outcome of prolonged ICU stay and multiple surgeries 10 ileus, improving patient is on enteral feeding 11 left lung collapse status post bronchoscopy and therapeutic it was suctioning. Patient has Rachana within the sputum currently on Diflucan. Most recent chest x-ray shows adequate rest of both lungs and there is some mild component of pulmonary congestion. 12 hypertension 13 hyperlipidemia 14 anemia multifactorial with a hemoglobin level of 7.6 today Recommendation: Continue ventilatory support, continue antibiotics, nutritional support, scheduled to have a PEG tube placement, and cardioversion, possible transfer to select care specialty later this week. Discussed her condition with her daughter at bedside. Critical care time is 35 minutes. Time with Patient: Greater than 30
--- NOTE | 2018-01-04 14:23 | P.GSCN ---
<Parris Dawkins - Last Filed: 01/04/18 14:17> History of Present Illness Consult date: 01/04/18 Reason for Consult: Nutrition, need for PEG placement Requesting physician: Dion Back History of present illness: This is a 67-year-old female who presented to [facility] on 12/23/2017 for elective mitral valve replacement and coronary artery bypass grafting 1 vessel. 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 She has had a turbulent postoperative course with acute blood loss anemia and transfusion of multiple units of packed red blood cells, prolonged mechanical ventilation with the placement of tracheostomy, sternal dehiscence with flap repair and wound VAC placement, left lower lobe lung collapse with mucous plugging and subsequent bronchoscopy, and postoperative ileus which has resolved. She remains in rapid atrial flutter but is unable to be cardioverted until she can be placed on anticoagulation. Anticoagulation is on hold for PEG tube placement for continued nutrition. Dr. Aldridge was consulted for placement of PEG tube. Review of Systems 14 point review systems is completed and was negative except as noted in the HPI. Past Medical History Past Medical History: Atrial Fibrillation, Coronary Artery Disease (CAD), GI Bleed, Hyperlipidemia, Hypertension, Osteoarthritis (OA) Additional Past Medical History / Comment(s): HX: Was told "leaky valve", pt states has been experiencing "gallbladder pain", followed by dr small for sx & elevated liver enzymes, shortness of breath with activity, recent GI bleed- transfusion in October 2017, has left subclavian stent-mostly occluded History of Any Multi-Drug Resistant Organisms: None Reported Past Surgical History: Cardiac Valve Replacement, Coronary Bypass/CABG, Heart Catheterization, Heart Catheterization With Stent, Orthopedic Surgery, Tonsillectomy Additional Past Surgical History / Comment(s): L subclavian stent x2, Other SX:D &C,NILDA, carpal tunnel geovanni, tracheostomy, muscle flap repair of sternal wound Past Anesthesia/Blood Transfusion Reactions: No Reported Reaction Additional Past Anesthesia/Blood Transfusion Reaction / Comm: recent transfusion -no problems Date of Last Stent Placement:: 05/03/15 Additional Psychological History / Comment(s): . Stopped smoking several years ago. No experience or international travel. No animal exposures Smoking Status: Former smoker Past Alcohol Use History: None Reported Past Drug Use History: None Reported - Past Family History Mother Family Medical History: Hypertension Additional Family Medical History / Comment(s): LEAKY HEART VALVES,HEART PROBLEMS, WITH BOWEL OBS Father Family Medical History: Myocardial Infarction (CA) Additional Family Medical History / Comment(s): HEART PROBLEMS, AT AGE 68 WITH CA Medications and Allergies Home Medications Medication Instructions Recorded Confirmed Type Escitalopram [Lexapro] 10 mg PO HS 02/01/14 11/25/17 History Aspirin EC [Ecotrin Low Dose] 81 mg PO HS 02/19/16 11/25/17 History Atorvastatin [Lipitor] 20 mg PO DAILY #30 tab 09/04/17 11/25/17 Rx Furosemide [Lasix] 20 mg PO DAILY #30 tab 09/04/17 11/25/17 Rx Metoprolol Tartrate [Lopressor] 12.5 mg PO BID 09/17/17 11/25/17 History Amiodarone [Cordarone] 200 mg PO DAILY 10/12/17 11/25/17 History Warfarin [Coumadin] 3 mg PO DAILY #30 tab 10/14/17 11/25/17 Rx Aspirin 325 mg PO ONCE 11/25/17 11/25/17 History Allergies Allergy/AdvReac Type Severity Reaction Status Date / Time codeine AdvReac Hallucinati Verified 11/25/17 15:17 ons Surgical - Exam Vital Signs Temp Pulse Resp BP Pulse Ox 97.2 F L 82 16 103/72 98 11/25/17 06:02 11/25/17 06:02 11/25/17 06:02 11/25/17 06:02 11/25/17 06:02 - General well developed, no distress, no pain, chronically ill, obese - Eyes PERRL, normal ocular movement - ENT no hearing loss - Neck #8 Shiley tracheostomy tube present trachea midline - Respiratory Lungs sounds diminished bilaterally. Respirations even, nonlabored. Currently on mechanical ventilation. Spontaneously breathing, pressure support of 14, PEEP of 5, FiO2 35%. - Cardiovascular S1, S2 present. Regular, tachycardia rate and rhythm, rapid atrial flutter on telemetry. Open chest with wound VAC in place. Palpable peripheral pulses bilaterally. Bilateral lower extremity edema present. No calf pain or tenderness noted. Legs with Vance wraps from toes to knees. SCDs present. Right axillary arterial line, left brachial PICC line present. - Abdomen Abdomen soft, nontender, nondistended, obese, no tympany noted. Active bowel sounds 4 quadrants. NG tube present, tube feedings infusing at 50 mL per hour with minimal residual per nursing. - Genitourinary Mason present draining clear, yellow urine. - Rectum Deferred - Integumentary Skin is warm and dry. Anterior chest open with wound VAC in place. Abdominal incision was clean dry intact maya, drainage 75 mL in the last 8 hours. Supple. Head with small area of eschar, no drainage present. Sacral area with pressure ulcer, local wound care. - Neurologic normal coordination, normal sensation - Musculoskeletal Generalized weakness and debility present. - Psychiatric oriented to time, oriented to person, oriented to place, memory intact Results - Labs 01/04/18 04:33 01/04/18 13:37 Abnormal Lab Results - Last 24 Hours (Table) 01/03/18 01/04/18 01/04/18 Range/Units 17:27 00:12 04:33 RBC (3.80-5.40) m/uL Hgb (11.4-16.0) gm/dL Hct (34.0-46.0) % MCHC (31.0-37.0) g/dL RDW (11.5-15.5) % Neutrophils # (1.3-7.7) k/uL Lymphocytes # (1.0-4.8) k/uL ABG pH (7.35-7.45) ABG HCO3 (21-25) mmol/L ABG Total CO2 (19-24) mmol/L ABG O2 Saturation (94-97) % Carbon Dioxide 31 H (22-30) mmol/L BUN 43 H (7-17) mg/dL POC Glucose (mg/dL) 100 H 108 H (75-99) mg/dL 01/04/18 01/04/18 01/04/18 Range/Units 04:33 06:23 07:54 RBC 2.82 L (3.80-5.40) m/uL Hgb 7.6 L (11.4-16.0) gm/dL Hct 24.5 L (34.0-46.0) % MCHC 30.9 L (31.0-37.0) g/dL RDW 19.5 H (11.5-15.5) % Neutrophils # 9.1 H (1.3-7.7) k/uL Lymphocytes # 0.6 L (1.0-4.8) k/uL ABG pH 7.49 H (7.35-7.45) ABG HCO3 31 H (21-25) mmol/L ABG Total CO2 33 H (19-24) mmol/L ABG O2 Saturation 98.9 H (94-97) % Carbon Dioxide (22-30) mmol/L BUN (7-17) mg/dL POC Glucose (mg/dL) 116 H (75-99) mg/dL 01/04/18 Range/Units 11:59 RBC (3.80-5.40) m/uL Hgb (11.4-16.0) gm/dL Hct (34.0-46.0) % MCHC (31.0-37.0) g/dL RDW (11.5-15.5) % Neutrophils # (1.3-7.7) k/uL Lymphocytes # (1.0-4.8) k/uL ABG pH (7.35-7.45) ABG HCO3 (21-25) mmol/L ABG Total CO2 (19-24) mmol/L ABG O2 Saturation (94-97) % Carbon Dioxide (22-30) mmol/L BUN (7-17) mg/dL POC Glucose (mg/dL) 109 H (75-99) mg/dL Microbiology - Last 24 Hours (Table) 12/10/17 10:40 Fungal Culture - Preliminary Chest 12/10/17 10:45 Fungal Culture - Preliminary Chest 12/10/17 10:50 Fungal Culture - Preliminary Chest Diabetes panel 01/04/18 01/04/18 Range/Units 04:33 13:37 Sodium 139 (137-145) mmol/L Potassium 3.7 4.0 (3.5-5.1) mmol/L Chloride 100 (98-107) mmol/L Carbon Dioxide 31 H (22-30) mmol/L BUN 43 H (7-17) mg/dL Creatinine 0.90 (0.52-1.04) mg/dL Glucose 91 (74-99) mg/dL Calcium 8.6 (8.4-10.2) mg/dL Calcium panel 01/04/18 Range/Units 04:33 Calcium 8.6 (8.4-10.2) mg/dL Phosphorus 3.7 (2.5-4.5) mg/dL Pituitary panel 01/04/18 01/04/18 Range/Units 04:33 13:37 Sodium 139 (137-145) mmol/L Potassium 3.7 4.0 (3.5-5.1) mmol/L Chloride 100 (98-107) mmol/L Carbon Dioxide 31 H (22-30) mmol/L BUN 43 H (7-17) mg/dL Creatinine 0.90 (0.52-1.04) mg/dL Glucose 91 (74-99) mg/dL Calcium 8.6 (8.4-10.2) mg/dL Adrenal panel 01/04/18 01/04/18 Range/Units 04:33 13:37 Sodium 139 (137-145) mmol/L Potassium 3.7 4.0 (3.5-5.1) mmol/L Chloride 100 (98-107) mmol/L Carbon Dioxide 31 H (22-30) mmol/L BUN 43 H (7-17) mg/dL Creatinine 0.90 (0.52-1.04) mg/dL Glucose 91 (74-99) mg/dL Calcium 8.6 (8.4-10.2) mg/dL - Imaging Chest x-ray: report reviewed, image reviewed Assessment and Plan (1) Acute blood loss anemia Current Visit: Yes Status: Acute Code(s): D62 - ACUTE POSTHEMORRHAGIC ANEMIA SNOMED Code(s): 541304557 (2) CAD (coronary artery disease) Current Visit: Yes Status: Chronic Code(s): I25.10 - ATHSCL HEART DISEASE OF [place] CORONARY ARTERY W/O ANG PCTRS SNOMED Code(s): 52020200 (3) Hyperlipidemia Current Visit: Yes Status: Chronic Code(s): E78.5 - HYPERLIPIDEMIA, UNSPECIFIED SNOMED Code(s): 40289573 (4) Hypertension Current Visit: Yes Status: Chronic Code(s): I10 - ESSENTIAL (PRIMARY) HYPERTENSION SNOMED Code(s): 17392501 (5) Severe mitral regurgitation Current Visit: Yes Status: Chronic Code(s): I34.0 - NONRHEUMATIC MITRAL ( VALVE) INSUFFICIENCY SNOMED Code(s): 47864501 (6) Stenosis of left subclavian artery Current Visit: Yes Status: Chronic Code(s): I77.1 - STRICTURE OF ARTERY SNOMED Code(s): 59667748980565020 (7) Paroxysmal atrial fibrillation Current Visit: No Status: Resolved Code(s): I48.0 - PAROXYSMAL ATRIAL FIBRILLATION SNOMED Code(s): 636738407 (8) History of GI bleed Current Visit: No Status: Resolved Code(s): Z87.19 - PERSONAL HISTORY OF OTHER DISEASES OF THE DIGESTIVE SYSTEM SNOMED Code(s): 297907651 (9) Family history of coronary artery disease Current Visit: Yes Status: Chronic Code(s): Z82.49 - FAMILY HX OF ISCHEM HEART DIS AND OTH DIS OF THE CIRC SYS SNOMED Code(s): 189260543 (10) Ileus, postoperative Current Visit: Yes Status: Acute Code(s): K91.89 - OTH POSTPROCEDURAL COMPLICATIONS AND DISORDERS OF DGSTV SYS; K56.7 - ILEUS, UNSPECIFIED SNOMED Code(s): 081375000 (11) Pressure ulcer of contiguous region involving back and buttock, stage 3 Current Visit: Yes Status: Acute Code(s): L89.43 - PRESSR ULCER OF CONTIG SITE OF BACK, BUTTOCK AND HIP, STG 3 SNOMED Code(s): 456433178 (12) Sternal wound dehiscence Current Visit: Yes Status: Acute Code(s): T81.32XA - DISRUPTION OF INTERNAL OPERATION (SURGICAL) WOUND, NEC, INIT SNOMED Code(s): 51039795 Plan: The patient seen and examined at the bedside. Chart/diagnostics were reviewed. The case was discussed in detail with Dr. Aldridge. At this time we will plan for PEG tube placement tomorrow, 01/05/2018. Tube feedings should be turned off at midnight. If unable to place PEG tube, Dobbhoff should be placed for continued tube feedings. Medical management to be continued per primary care service. Thank you Dr. Back for this consult. Please call with any questions. Time with Patient: Greater than 30 <Arjun Aldridge - Last Filed: 01/05/18 08:12> History of Present Illness History of present illness: Nurse practitioner notes reviewed and accepted. Discussed with patient the procedure of PEG tube and the risks involved. She appears to understand and agrees. We will proceed tomorrow. Surgical - Exam Osteopathic Statement: *. No significant issues noted on an osteopathic structural exam other than those noted in the History and Physical/Consult. Vital Signs Temp Pulse Resp BP Pulse Ox 97.2 F L 82 16 103/72 98 11/25/17 06:02 11/25/17 06:02 11/25/17 06:02 11/25/17 06:02 11/25/17 06:02 Results - Labs 01/05/18 05:00 01/05/18 05:00 Abnormal Lab Results - Last 24 Hours (Table) 01/04/18 01/04/18 01/04/18 Range/Units 11:59 17:03 23:52 WBC (3.8-10.6) k/uL RBC (3.80-5.40) m/uL Hgb (11.4-16.0) gm/dL Hct (34.0-46.0) % MCHC (31.0-37.0) g/dL RDW (11.5-15.5) % Neutrophils # (1.3-7.7) k/uL Lymphocytes # (1.0-4.8) k/uL ABG pH (7.35-7.45) ABG pO2 (83-108) mmHg ABG HCO3 (21-25) mmol/L ABG Total CO2 (19-24) mmol/L ABG O2 Saturation (94-97) % BUN (7-17) mg/dL POC Glucose (mg/dL) 109 H 106 H 126 H (75-99) mg/dL 01/05/18 01/05/18 01/05/18 Range/Units 05:00 05:00 07:39 WBC 12.5 H (3.8-10.6) k/uL RBC 3.17 L (3.80-5.40) m/uL Hgb 8.3 L (11.4-16.0) gm/dL Hct 27.3 L (34.0-46.0) % MCHC 30.3 L (31.0-37.0) g/dL RDW 20.3 H (11.5-15.5) % Neutrophils # 10.7 H (1.3-7.7) k/uL Lymphocytes # 0.8 L (1.0-4.8) k/uL ABG pH 7.47 H (7.35-7.45) ABG pO2 115 H (83-108) mmHg ABG HCO3 30 H (21-25) mmol/L ABG Total CO2 31 H (19-24) mmol/L ABG O2 Saturation 99.9 H (94-97) % BUN 43 H (7-17) mg/dL POC Glucose (mg/dL) (75-99) mg/dL Microbiology - Last 24 Hours (Table) 01/02/18 06:00 Stool Culture - Preliminary Stool Diabetes panel 01/04/18 01/05/18 Range/Units 13:37 05:00 Sodium 137 (137-145) mmol/L Potassium 4.0 4.0 (3.5-5.1) mmol/L Chloride 100 (98-107) mmol/L Carbon Dioxide 30 (22-30) mmol/L BUN 43 H (7-17) mg/dL Creatinine 0.80 (0.52-1.04) mg/dL Glucose 99 (74-99) mg/dL Calcium 8.6 (8.4-10.2) mg/dL Calcium panel 01/05/18 Range/Units 05:00 Calcium 8.6 (8.4-10.2) mg/dL Phosphorus 3.9 (2.5-4.5) mg/dL Pituitary panel 01/04/18 01/05/18 Range/Units 13:37 05:00 Sodium 137 (137-145) mmol/L Potassium 4.0 4.0 (3.5-5.1) mmol/L Chloride 100 (98-107) mmol/L Carbon Dioxide 30 (22-30) mmol/L BUN 43 H (7-17) mg/dL Creatinine 0.80 (0.52-1.04) mg/dL Glucose 99 (74-99) mg/dL Calcium 8.6 (8.4-10.2) mg/dL Adrenal panel 01/04/18 01/05/18 Range/Units 13:37 05:00 Sodium 137 (137-145) mmol/L Potassium 4.0 4.0 (3.5-5.1) mmol/L Chloride 100 (98-107) mmol/L Carbon Dioxide 30 (22-30) mmol/L BUN 43 H (7-17) mg/dL Creatinine 0.80 (0.52-1.04) mg/dL Glucose 99 (74-99) mg/dL Calcium 8.6 (8.4-10.2) mg/dL
[2018-01-04] MEDS: DEXTROSE 5%-0.45% NACL 1,000 ML IV SCH (16:16)
[2018-01-04 17:05] LABS: Glucose,Whole Blood 106 mg/dL (75-99)
--- NOTE | 2018-01-04 18:25 | P.PN ---
Subjective Progress Note Date: 01/04/18 Progress note being dictated for Dr. Kitchen Interval history: This is 67-year-old female status post CABG, mitral valve replacement, status post multiple blood products transfusions. Remains vent dependent on 40% FiO2/+5 of PEEP. Chest x-ray reporting fluid overload, improvement in volume status, aeration.Maintained on norepinephrine, Primacor, dopamine and insulin drip. Cardiac index 2.7. Telemetry atrial flutter/sinus tach. Tube feeding initiated via OG tube. Hemoglobin 7.3, Platelets decreased to 64 today, maintained on low-dose aspirin. Review systems unable to obtain as patient sedated and on mechanical ventilation. Active Medications Albuterol/Ipratropium (Duoneb 0.5 Mg-3 Mg/3 Ml Soln) 3 ml INHALATION RT-Q4H [facility] Last Admin: 11/29/17 15:17 Dose: 3 ml Albuterol/Ipratropium (Duoneb 0.5 Mg-3 Mg/3 Ml Soln) 3 ml INHALATION RT-Q2H PRN PRN Reason: Shortness Of Breath Or Wheezing Amiodarone HCl (Cordarone) 200 mg PO BID [facility] Aspirin (Aspirin) 81 mg PO DAILY [facility] Last Admin: 11/29/17 08:54 Dose: 81 mg Atorvastatin Calcium (Lipitor) 40 mg PO DAILY [facility] Last Admin: 11/29/17 08:54 Dose: 40 mg Benzocaine/Menthol (Cepacol Lozenge) 1 each MUCOUS MEM Q2H PRN PRN Reason: Sore Throat Bisacodyl (Dulcolax) 10 mg RECTAL DAILY PRN PRN Reason: Constipation Chlorhexidine Gluconate (Peridex) 15 ml MUCOUS MEM BID [facility] Last Admin: 11/29/17 08:48 Dose: 15 ml Furosemide (Lasix) 40 mg IV ONCE ONE Stop: 11/29/17 20:01 Propofol 1,000 mg/ IV Solution 100 mls @ 0 mls/hr IV .Q0M [facility]; Titrate PRN Reason: Protocol Last Admin: 11/29/17 17:54 Dose: 26.13 mcg/kg/min, 17.2 mls/hr Norepinephrine Bitartrate (Levophed-0.9% Nacl 16 Mg/250ml Pmx) 16 mg in 250 mls @ 0 mls/hr IV .Q0M [facility]; Titrate PRN Reason: Protocol Last Admin: 11/29/17 17:54 Dose: 2 mcg/min, 1.875 mls/hr Sodium Chloride (Saline 0.45%) 1,000 mls @ 30 mls/hr IV .Q24H [facility] Last Admin: 11/29/17 10:28 Dose: Not Given Milrinone Lactate/Dextrose 20 (mg/ IV Solution) 100 mls @ 6.58 mls/hr IV .[id number] [facility] PRN Reason: 0.2 MCG/KG/MIN Last Admin: 11/29/17 15:38 Dose: 0.2 mcg/kg/min, 6.58 mls/hr Insulin Aspart (Novolog) 0 unit SQ Q6HR [facility] PRN Reason: Protocol Last Admin: 11/29/17 12:36 Dose: Not Given Magnesium Hydroxide (Milk Of Magnesia) 2,400 mg PO BID PRN PRN Reason: Constipation Metoprolol Tartrate (Lopressor) 12.5 mg PO BID [facility] Last Admin: 11/29/17 08:55 Dose: 12.5 mg Miscellaneous Information (Magnesium Per Protocol) 1 each MISCELLANE DAILY PRN ; Protocol PRN Reason: Per Protocol Miscellaneous Information (Phosphorus Per Protocol) 1 each MISCELLANE DAILY PRN ; Protocol PRN Reason: Per Protocol Miscellaneous Information (Potassium Per Protocol) 1 each MISCELLANE DAILY PRN ; Protocol PRN Reason: Per Protocol Miscellaneous Information (Potassium Per Protocol) 1 each MISCELLANE DAILY PRN ; Protocol PRN Reason: Per Protocol Morphine Sulfate (Morphine Oral Dana 2mg/Ml) 6 mg PO Q2H PRN PRN Reason: Severe Pain Ondansetron HCl (Zofran) 4 mg IVP Q6HR PRN PRN Reason: Nausea And Vomiting Pantoprazole Sodium (Protonix) 40 mg IVP DAILY [facility] Last Admin: 11/29/17 08:55 Dose: 40 mg Senna/Docusate Sodium (Senokot-S) 2 each PO HS [facility] Last Admin: 11/28/17 20:41 Dose: 2 each Sodium Chloride (Saline Flush) 10 ml IV BID [facility] Last Admin: 11/29/17 08:56 Dose: 10 ml 11/30/2017 Chest x-ray reporting increased congestion, received additional Lasix. extubated this morning, currently maintained on BiPAP. Norepinephrine weaned off this morning. Maintained on Primacor, cardiac index 2.6. Received 1 dose of Lasix IV push. Renal function improving. Hemoglobin 7, platelets increased to 74. Atrial flutter per telemetry. Review systems unable to obtain as patient BiPAP dependent. Active Medications Generic Name Dose Route Start Last Admin Trade Name Freq PRN Reason Stop Dose Admin Albuterol/Ipratropium 3 ml 11/25/17 20:00 11/30/17 15:23 Duoneb 0.5 Mg-3 Mg/3 Ml Soln INHALATION 3 ml RT-Q4H [facility] Administration Albuterol/Ipratropium 3 ml 11/26/17 17:53 Duoneb 0.5 Mg-3 Mg/3 Ml Soln INHALATION RT-Q2H PRN Shortness Of Breath Or Wheezing Amiodarone HCl 200 mg 11/29/17 21:00 11/30/17 08:14 Cordarone PO 200 mg BID [facility] Administration Aspirin 81 mg 11/26/17 10:15 11/30/17 08:15 Aspirin PO 81 mg DAILY [facility] Administration Atorvastatin Calcium 40 mg 11/26/17 09:00 11/30/17 08:14 Lipitor PO 40 mg DAILY [facility] Administration Benzocaine/Menthol 1 each 11/25/17 19:03 Cepacol Lozenge MUCOUS MEM Q2H PRN Sore Throat Bisacodyl 10 mg 11/26/17 17:52 Dulcolax RECTAL DAILY PRN Constipation Fondaparinux 2.5 mg 11/30/17 11:30 11/30/17 13:23 Arixtra SQ 2.5 mg DAILY [facility] Administration Norepinephrine Bitartrate 16 mg in 250 mls @ 0 mls/hr 11/26/17 04:15 11:58 Levophed-0.9% Nacl 16 Mg/250ml Pmx IV 0 mcg/min .Q0M [facility] 0 mls/hr Protocol Titration Titrate Sodium Chloride 1,000 mls @ 10 mls/hr 11/26/17 10:15 11/30/17 12:51 Saline 0.45% IV Not Given .Q24H [facility] Milrinone Lactate/Dextrose 20 100 mls @ 6.58 mls/hr 11/29/17 15:00 11/30/17 08:16 mg/ IV Solution IV 0.2 mcg/kg/min .[id number] [facility] 6.58 mls/hr 0.2 MCG/KG/MIN Infusion Insulin Aspart 0 unit 11/29/17 12:00 11/30/17 12:50 Novolog SQ Not Given Q6HR [facility] Protocol Magnesium Hydroxide 2,400 mg 11/26/17 17:53 Milk Of Magnesia PO BID PRN Constipation Metoprolol Tartrate 12.5 mg 11/26/17 09:00 11/30/17 08:15 Lopressor PO 12.5 mg BID [facility] Administration Miscellaneous Information 1 each 11/25/17 19:03 Magnesium Per Protocol MISCELLANE DAILY PRN Per Protocol Protocol Miscellaneous Information 1 each 11/25/17 19:03 Phosphorus Per Protocol MISCELLANE DAILY PRN Per Protocol Protocol Miscellaneous Information 1 each 11/25/17 19:03 Potassium Per Protocol MISCELLANE DAILY PRN Per Protocol Protocol Miscellaneous Information 1 each 11/29/17 12:01 Potassium Per Protocol MISCELLANE DAILY PRN Per Protocol Protocol Morphine Sulfate 6 mg 11/29/17 13:31 Morphine Oral Dana 2mg/Ml PO Q2H PRN Severe Pain Ondansetron HCl 4 mg 11/25/17 19:03 Zofran IVP Q6HR PRN Nausea And Vomiting Pantoprazole Sodium 40 mg 11/26/17 09:00 11/30/17 08:15 Protonix IVP 40 mg DAILY [facility] Administration Senna/Docusate Sodium 2 each 11/26/17 21:00 11/29/17 20:40 Senokot-S PO 2 each HS [facility] Administration Sodium Chloride 10 ml 11/25/17 21:00 11/30/17 08:15 Saline Flush IV 10 ml BID [facility] Administration 12/01/2017 Breathing improving, weaned off of BiPAP and down to 6 L high flow. Wheezing resolved. Chest x-ray reports improvement. Staff reports patient appeared to be choking on pills last night, speech therapy consulted. Receiving one unit of packed RBCs for hemoglobin of 6.7. Mediastinal chest tubes discontinued, left pleural chest tube remains. Maintained on Primacor. Telemetry atrial flutter. Review of systems: CONSTITUTIONAL: No fever, no malaise HEENT: No recent visual problems or hearing problems. Denied any sore throat. CARDIOVASCULAR: No chest pain, no palpitations, no syncope. PULMONARY: Improving shortness of breath, no cough, no hemoptysis. GASTROINTESTINAL: No diarrhea, no nausea, no vomiting, no abdominal pain. Normoactive bowel sounds. NEUROLOGICAL: No headaches, diffuse weakness, no numbness. HEMATOLOGICAL: Denies any bleeding or petechiae. GENITOURINARY: Denies any burning micturition, frequency, or urgency. ENDOCRINE: Denies any polyuria or polydipsia. PSYCHIATRIC: No anxiety, no depression Active Medications Hydrocodone Bitart/Acetaminophen ([place] 5-325) 1 each PO Q4HR PRN PRN Reason: MILD TO MODERATE Pain Last Admin: 12/01/17 22:44 Dose: 1 each Hydrocodone Bitart/Acetaminophen ([place] 5-325) 2 each PO Q4HR PRN PRN Reason: MODERATE TO SEVERE Pain Albuterol/Ipratropium (Duoneb 0.5 Mg-3 Mg/3 Ml Soln) 3 ml INHALATION RT-Q4H [facility] Last Admin: 12/02/17 15:06 Dose: 3 ml Albuterol/Ipratropium (Duoneb 0.5 Mg-3 Mg/3 Ml Soln) 3 ml INHALATION RT-Q2H PRN PRN Reason: Shortness Of Breath Or Wheezing Last Admin: 12/01/17 18:09 Dose: 3 ml Amiodarone HCl (Cordarone) 200 mg PO BID [facility] Last Admin: 12/02/17 08:10 Dose: 200 mg Aspirin (Aspirin) 81 mg PO DAILY [facility] Last Admin: 12/02/17 08:10 Dose: 81 mg Atorvastatin Calcium (Lipitor) 40 mg PO DAILY [facility] Last Admin: 12/02/17 08:10 Dose: 40 mg Benzocaine/Menthol (Cepacol Lozenge) 1 each MUCOUS MEM Q2H PRN PRN Reason: Sore Throat Bisacodyl (Dulcolax) 10 mg RECTAL DAILY PRN PRN Reason: Constipation Budesonide (Pulmicort) 1 mg INHALATION RT-BID [facility] Last Admin: 12/02/17 07:19 Dose: 1 mg Fondaparinux (Arixtra) 2.5 mg SQ DAILY [facility] Last Admin: 12/02/17 08:10 Dose: 2.5 mg Formoterol Fumarate (Perforomist) 20 mcg INHALATION RT-BID [facility] Last Admin: 12/02/17 07:36 Dose: 20 mcg Norepinephrine Bitartrate (Levophed-0.9% Nacl 16 Mg/250ml Pmx) 16 mg in 250 mls @ 0 mls/hr IV .Q0M [facility]; Titrate PRN Reason: Protocol Last Titration: 11/30/17 11:58 Dose: 0 mcg/min, 0 mls/hr Sodium Chloride (Saline 0.45%) 1,000 mls @ 10 mls/hr IV .Q24H [facility] Last Admin: 12/01/17 14:04 Dose: 10 mls/hr Milrinone Lactate/Dextrose 20 (mg/ IV Solution) 100 mls @ 6.58 mls/hr IV .[id number] [facility] PRN Reason: 0.2 MCG/KG/MIN Last Admin: 12/02/17 08:57 Dose: 0.2 mcg/kg/min, 6.58 mls/hr Insulin Aspart (Novolog) 0 unit SQ Q6HR [facility] PRN Reason: Protocol Last Admin: 12/02/17 12:53 Dose: Not Given Magnesium Hydroxide (Milk Of Magnesia) 2,400 mg PO BID PRN PRN Reason: Constipation Methylprednisolone Sodium Succinate (Solu-Medrol) 30 mg IV Q8HR [facility] Last Admin: 12/02/17 08:10 Dose: 30 mg Metoprolol Tartrate (Lopressor) 25 mg PO BID [facility] Last Admin: 12/02/17 08:59 Dose: 25 mg Miscellaneous Information (Magnesium Per Protocol) 1 each MISCELLANE DAILY PRN ; Protocol PRN Reason: Per Protocol Miscellaneous Information (Phosphorus Per Protocol) 1 each MISCELLANE DAILY PRN ; Protocol PRN Reason: Per Protocol Miscellaneous Information (Potassium Per Protocol) 1 each MISCELLANE DAILY PRN ; Protocol PRN Reason: Per Protocol Miscellaneous Information (Potassium Per Protocol) 1 each MISCELLANE DAILY PRN ; Protocol PRN Reason: Per Protocol Ondansetron HCl (Zofran) 4 mg IVP Q6HR PRN PRN Reason: Nausea And Vomiting Pantoprazole Sodium (Protonix) 40 mg IVP DAILY [facility] Last Admin: 12/02/17 08:10 Dose: 40 mg Senna/Docusate Sodium (Senokot-S) 2 each PO HS [facility] Last Admin: 12/01/17 21:55 Dose: 2 each Sodium Chloride (Saline Flush) 10 ml IV BID [facility] Last Admin: 12/02/17 12:51 Dose: 10 ml 12/02/17 Much more alert today. Oxygen weaned further down to 5 L nasal cannula, maintaining O2 sats in the high 90s. Pleural chest tube discontinued. Chest x- ray reporting probable right lower lobe atelectasis/effusion. Underwent modified barium swallow, with recommendations of regular diet, thin liquids, chin tuck, no straw, small bites/sepsis/sips; no impairment with exception of mild transient penetration with thin liquids which patient independently cleared. Yesterday receive 1 unit of packed RBCs with current hemoglobin 8. Weaning of Primacor in progress. 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 Review of systems: CONSTITUTIONAL: No fever, no malaise, no fatigue. HEENT: No recent visual problems or hearing problems. Denied any sore throat. CARDIOVASCULAR: No chest pain, no palpitations, no syncope. PULMONARY: Minimal shortness of breath, no cough, no hemoptysis. GASTROINTESTINAL: No diarrhea, no nausea, no vomiting, no abdominal pain. Normoactive bowel sounds. NEUROLOGICAL: No headaches, no weakness, no numbness. HEMATOLOGICAL: Denies any bleeding or petechiae. GENITOURINARY: Denies any burning micturition, frequency, or urgency. MUSCULOSKELETAL/RHEUMATOLOGICAL: Denies any joint pain, swelling, or any muscle pain. ENDOCRINE: Denies any polyuria or polydipsia. PSYCHIATRIC: No anxiety, no depression The rest of the 14 point review of systems is negative Active Medications Generic Name Dose Route Start Last Admin Trade Name Freq PRN Reason Stop Dose Admin Hydrocodone Bitart/Acetaminophen 1 each 12/01/17 12:20 12/01/17 22:44 [place] 5-325 PO 1 each Q4HR PRN Administration MILD TO MODERATE Pain Hydrocodone Bitart/Acetaminophen 2 each 12/01/17 12:20 [place] 5-325 PO Q4HR PRN MODERATE TO SEVERE Pain Albuterol/Ipratropium 3 ml 11/25/17 20:00 12/02/17 15:06 Duoneb 0.5 Mg-3 Mg/3 Ml Soln INHALATION 3 ml RT-Q4H [facility] Administration Albuterol/Ipratropium 3 ml 11/26/17 17:53 12/01/17 18:09 Duoneb 0.5 Mg-3 Mg/3 Ml Soln INHALATION 3 ml RT-Q2H PRN Administration Shortness Of Breath Or Wheezing Amiodarone HCl 200 mg 11/29/17 21:00 12/02/17 08:10 Cordarone PO 200 mg BID [facility] Administration Aspirin 81 mg 11/26/17 10:15 12/02/17 08:10 Aspirin PO 81 mg DAILY [facility] Administration Atorvastatin Calcium 40 mg 11/26/17 09:00 12/02/17 08:10 Lipitor PO 40 mg DAILY [facility] Administration Benzocaine/Menthol 1 each 11/25/17 19:03 Cepacol Lozenge MUCOUS MEM Q2H PRN Sore Throat Bisacodyl 10 mg 11/26/17 17:52 Dulcolax RECTAL DAILY PRN Constipation Budesonide 1 mg 12/01/17 20:00 12/02/17 07:19 Pulmicort INHALATION 1 mg RT-BID [facility] Administration Fondaparinux 2.5 mg 11/30/17 11:30 12/02/17 08:10 Arixtra SQ 2.5 mg DAILY [facility] Administration Formoterol Fumarate 20 mcg 12/01/17 20:00 12/02/17 07:36 Perforomist INHALATION 20 mcg RT-BID [facility] Administration Norepinephrine Bitartrate 16 mg in 250 mls @ 0 mls/hr 11/26/17 04:15 11:58 Levophed-0.9% Nacl 16 Mg/250ml Pmx IV 0 mcg/min .Q0M [facility] 0 mls/hr Protocol Titration Titrate Sodium Chloride 1,000 mls @ 10 mls/hr 11/26/17 10:15 12/02/17 15:41 Saline 0.45% IV Not Given .Q24H [facility] Milrinone Lactate/Dextrose 20 100 mls @ 6.58 mls/hr 11/29/17 15:00 12/02/17 08:57 mg/ IV Solution IV 0.2 mcg/kg/min .[id number] [facility] 6.58 mls/hr 0.2 MCG/KG/MIN Administration Insulin Aspart 0 unit 11/29/17 12:00 12/02/17 12:53 Novolog SQ Not Given Q6HR [facility] Protocol Magnesium Hydroxide 2,400 mg 11/26/17 17:53 Milk Of Magnesia PO BID PRN Constipation Methylprednisolone Sodium Succinate 30 mg 12/01/17 16:00 12/02/17 08:10 Solu-Medrol IV 30 mg Q8HR [facility] Administration Metoprolol Tartrate 25 mg 12/02/17 09:00 12/02/17 08:59 Lopressor PO 25 mg BID [facility] Administration Miscellaneous Information 1 each 11/25/17 19:03 Magnesium Per Protocol MISCELLANE DAILY PRN Per Protocol Protocol Miscellaneous Information 1 each 11/25/17 19:03 Phosphorus Per Protocol MISCELLANE DAILY PRN Per Protocol Protocol Miscellaneous Information 1 each 11/25/17 19:03 Potassium Per Protocol MISCELLANE DAILY PRN Per Protocol Protocol Miscellaneous Information 1 each 11/29/17 12:01 Potassium Per Protocol MISCELLANE DAILY PRN Per Protocol Protocol Ondansetron HCl 4 mg 11/25/17 19:03 Zofran IVP Q6HR PRN Nausea And Vomiting Pantoprazole Sodium 40 mg 11/26/17 09:00 12/02/17 08:10 Protonix IVP 40 mg DAILY [facility] Administration Senna/Docusate Sodium 2 each 11/26/17 21:00 12/01/17 21:55 Senokot-S PO 2 each HS [facility] Administration Sodium Chloride 10 ml 11/25/17 21:00 12/02/17 12:51 Saline Flush IV 10 ml BID [facility] Administration 12/03/17 maintained on nebulized bronchodilators, steroids,patient tachypneic, requiring BiPap throughout today off and on. Chest x-ray suggestive of fluid overload. Received additional Lasix. Maintained on oral amiodarone, remains in a-flutter. Overdrive atrial pacing attempted unsuccessfully. Digoxin 2 ordered. Pacer wires discontinued today. Stool at bedside with PT OT, remains extremely weak. Primacor weaned off yesterday. 2017 currently in atrial fibrillation with heart rates up into the 150s, scheduled for cardioversion tomorrow. INR 2.2. Patient currently wearing BiPAP ,has required on and off all day. Chest ultrasound reporting bilateral pleural effusions, larger on the right. Thoracentesis on hold, awaiting cardioversion.Chest x-ray reporting prominent interstitium and central vascularity, increased bibasilar density. Attempting diuresing with Lasix and Zaroxolyn. Review systems unable to obtain as patient currently on BiPAP. Active Medications Hydrocodone Bitart/Acetaminophen ([place] 5-325) 1 each PO Q4HR PRN PRN Reason: MILD TO MODERATE Pain Last Admin: 12/07/17 10:48 Dose: 1 each Hydrocodone Bitart/Acetaminophen ([place] 5-325) 2 each PO Q4HR PRN PRN Reason: MODERATE TO SEVERE Pain Last Admin: 12/07/17 16:39 Dose: 2 each Albuterol/Ipratropium (Duoneb 0.5 Mg-3 Mg/3 Ml Soln) 3 ml INHALATION RT-Q2H PRN PRN Reason: Shortness Of Breath Or Wheezing Last Admin: 12/01/17 18:09 Dose: 3 ml Albuterol/Ipratropium (Duoneb 0.5 Mg-3 Mg/3 Ml Soln) 3 ml INHALATION RT-QID [facility] Last Admin: 12/07/17 16:43 Dose: 3 ml Amiodarone HCl (Cordarone) 200 mg PO BID [facility] Aspirin (Aspirin) 81 mg PO DAILY [facility] Last Admin: 12/07/17 08:53 Dose: 81 mg Atorvastatin Calcium (Lipitor) 40 mg PO DAILY [facility] Last Admin: 12/07/17 08:53 Dose: 40 mg Benzocaine/Menthol (Cepacol Lozenge) 1 each MUCOUS MEM Q2H PRN PRN Reason: Sore Throat Bisacodyl (Dulcolax) 10 mg RECTAL DAILY PRN PRN Reason: Constipation Budesonide (Pulmicort) 1 mg INHALATION RT-BID [facility] Last Admin: 12/07/17 08:36 Dose: 1 mg Escitalopram Oxalate (Lexapro) 10 mg PO HS [facility] Furosemide (Lasix) 40 mg IV Q12HR [facility] Last Admin: 12/07/17 08:33 Dose: 40 mg Piperacillin/Tazobactam/ (Dextrose 3.375 gm/ IV Solution) 50 mls @ 12.5 mls/hr IVPB Q8HR [facility] Last Admin: 12/07/17 16:39 Dose: 12.5 mls/hr Sodium Chloride (Saline 0.9%) 1,000 mls @ 20 mls/hr IV .Q24H [facility] Last Admin: 12/07/17 13:00 Dose: 20 mls/hr Lactated Ringer's (Lactated Ringers) 1,000 mls @ 20 mls/hr IV .Q24H [facility] Last Admin: 12/06/17 20:45 Dose: 20 mls/hr Insulin Aspart (Novolog) 0 unit SQ ACHS [facility] PRN Reason: Protocol Last Admin: 12/07/17 13:01 Dose: 2 unit Magnesium Hydroxide (Milk Of Magnesia) 2,400 mg PO BID PRN PRN Reason: Constipation Methylprednisolone Sodium Succinate (Solu-Medrol) 30 mg IV Q8HR [facility] Last Admin: 12/07/17 16:39 Dose: 30 mg Metolazone (Zaroxolyn) 5 mg PO DAILY [facility] Last Admin: 12/07/17 08:53 Dose: 5 mg Metoprolol Tartrate (Lopressor) 50 mg PO BID [facility] Last Admin: 12/07/17 08:53 Dose: 50 mg Miscellaneous Information (Magnesium Per Protocol) 1 each MISCELLANE DAILY PRN ; Protocol PRN Reason: Per Protocol Miscellaneous Information (Phosphorus Per Protocol) 1 each MISCELLANE DAILY PRN ; Protocol PRN Reason: Per Protocol Miscellaneous Information (Potassium Per Protocol) 1 each MISCELLANE DAILY PRN ; Protocol PRN Reason: Per Protocol Ondansetron HCl (Zofran) 4 mg IVP Q6HR PRN PRN Reason: Nausea And Vomiting Pantoprazole Sodium (Protonix) 40 mg PO AC-BRKFST [facility] Last Admin: 12/07/17 08:53 Dose: 40 mg Senna/Docusate Sodium (Senokot-S) 2 each PO HS [facility] Last Admin: 12/06/17 20:29 Dose: 2 each Sodium Chloride (Saline Flush) 10 ml IV BID [facility] Last Admin: 12/07/17 10:48 Dose: 10 ml 12/07/2017 Underwent successful cardioversion this morning,360J X1, remains in sinus rhythm. Currently wearing BiPAP. Nonproductive cough. Diuresing well on Lasix and Zaroxolyn with 24-hour I&O reflecting a negative fluid balance. Chest x-ray reporting stable bilateral areas of infiltrate and pleural effusions , possible CHF, possible pneumonia. INR 3.8, afebrile, WBC 17. Maintained on Zosyn. Sternal wound drainage, cultures sent. 12/08/2017 Cardioverted yesterday, remains in sinus rhythm .continues requiring BiPAP for majority of morning. Echo reporting-limited study for assessment of pericardial effusion, small generalized pericardial effusion, low normal LV function, EF 50-55%. Chest CT reporting sternal dehiscence, moderate to large pericardial effusion, possible mass effect onto the left ventricle, no significant right atrial dilatation to clearly indicate tamponade, moderate left pleural effusion with adjacent complete left lower lobar and inferior lingular collapse, small right pleural effusion, right basilar subsegmental atelectasis. Chest x-ray noted. Blood sugars controlled. INR 4.8, received vitamin K this morning. Diuresing well on Lasix IV push, Zaroxolyn. 24-hour I& O reflecting a negative fluid balance, decreased weight. Midsternal incision open, draining large amount of serosanguineous drainage. Currently maintained on Zosyn. Wound cultures pending. Afebrile. Review systems unable to obtain as patient currently on BiPAP. Active Medications Generic Name Dose Route Start Last Admin Trade Name Freq PRN Reason Stop Dose Admin Hydrocodone Bitart/Acetaminophen 1 each 12/01/17 12:20 12/08/17 06:26 [place] 5-325 PO 1 each Q4HR PRN Administration MILD TO MODERATE Pain Hydrocodone Bitart/Acetaminophen 2 each 12/01/17 12:20 12/08/17 18:41 [place] 5-325 PO 2 each Q4HR PRN Administration MODERATE TO SEVERE Pain Acetazolamide Sodium 250 mg 12/08/17 09:15 12/08/17 11:16 Diamox IV 12/08/17 21:01 250 mg Q12HR [facility] Administration Albuterol/Ipratropium 3 ml 11/26/17 17:53 12/08/17 05:16 Duoneb 0.5 Mg-3 Mg/3 Ml Soln INHALATION 3 ml RT-Q2H PRN Administration Shortness Of Breath Or Wheezing Albuterol/Ipratropium 3 ml 12/03/17 08:00 12/08/17 15:38 Duoneb 0.5 Mg-3 Mg/3 Ml Soln INHALATION 3 ml RT-QID [facility] Administration Amiodarone HCl 200 mg 12/08/17 09:00 12/08/17 08:24 Cordarone PO 200 mg BID [facility] Administration Aspirin 81 mg 11/26/17 10:15 12/08/17 08:24 Aspirin PO 81 mg DAILY [facility] Administration Atorvastatin Calcium 40 mg 11/26/17 09:00 12/08/17 08:25 Lipitor PO 40 mg DAILY [facility] Administration Benzocaine/Menthol 1 each 11/25/17 19:03 Cepacol Lozenge MUCOUS MEM Q2H PRN Sore Throat Bisacodyl 10 mg 11/26/17 17:52 Dulcolax RECTAL DAILY PRN Constipation Budesonide 1 mg 12/01/17 20:00 12/08/17 09:26 Pulmicort INHALATION 1 mg RT-BID [facility] Administration Escitalopram Oxalate 10 mg 12/07/17 21:00 12/07/17 20:10 Lexapro PO 10 mg HS [facility] Administration Piperacillin/Tazobactam/ 50 mls @ 12.5 mls/hr 12/04/17 16:00 12/08/17 16:11 Dextrose 3.375 gm/ IV Solution IVPB 12.5 mls/hr Q8HR [facility] Administration Sodium Chloride 1,000 mls @ 20 mls/hr 12/06/17 10:45 12/08/17 13:47 Saline 0.9% IV Not Given .Q24H [facility] Insulin Aspart 0 unit 12/02/17 21:00 12/08/17 17:46 Novolog SQ 1 unit ACHS [facility] Administration Protocol Magnesium Hydroxide 2,400 mg 11/26/17 17:53 Milk Of Magnesia PO BID PRN Constipation Metoprolol Tartrate 50 mg 12/06/17 21:00 12/08/17 08:24 Lopressor PO 50 mg BID [facility] Administration Miscellaneous Information 1 each 11/25/17 19:03 Magnesium Per Protocol MISCELLANE DAILY PRN Per Protocol Protocol Miscellaneous Information 1 each 11/25/17 19:03 Phosphorus Per Protocol MISCELLANE DAILY PRN Per Protocol Protocol Miscellaneous Information 1 each 11/25/17 19:03 Potassium Per Protocol MISCELLANE DAILY PRN Per Protocol Protocol Ondansetron HCl 4 mg 11/25/17 19:03 Zofran IVP Q6HR PRN Nausea And Vomiting Pantoprazole Sodium 40 mg 12/05/17 07:30 12/08/17 08:25 Protonix PO 40 mg AC-BRKFST [facility] Administration Senna/Docusate Sodium 2 each 11/26/17 21:00 12/07/17 20:16 Senokot-S PO 2 each HS [facility] Administration Sodium Chloride 10 ml 11/25/17 21:00 12/08/17 11:16 Saline Flush IV 10 ml BID [facility] Administration 12/09/17 Remains in sinus rhythm. mostly BiPAP dependent. Incentive spirometer up to 700 -750. Chest x-ray reporting improving moderate pleural effusion, cardiomegaly. Sternal wound culture positive for gram-negative bacilli. Maintained on Zosyn. Diet intake fair. Blood sugars controlled. Review systems unable to be performed as patient on BiPAP Active Medications Hydrocodone Bitart/Acetaminophen ([place] 5-325) 1 each PO Q4HR PRN PRN Reason: MILD TO MODERATE Pain Last Admin: 12/09/17 10:03 Dose: 1 each Hydrocodone Bitart/Acetaminophen ([place] 5-325) 2 each PO Q4HR PRN PRN Reason: MODERATE TO SEVERE Pain Last Admin: 12/09/17 14:51 Dose: 2 each Albuterol/Ipratropium (Duoneb 0.5 Mg-3 Mg/3 Ml Soln) 3 ml INHALATION RT-Q2H PRN PRN Reason: Shortness Of Breath Or Wheezing Last Admin: 12/08/17 05:16 Dose: 3 ml Albuterol/Ipratropium (Duoneb 0.5 Mg-3 Mg/3 Ml Soln) 3 ml INHALATION RT-QID [facility] Last Admin: 12/09/17 15:42 Dose: 3 ml Amiodarone HCl (Cordarone) 200 mg PO BID [facility] Last Admin: 12/09/17 08:12 Dose: 200 mg Aspirin (Aspirin) 81 mg PO DAILY [facility] Last Admin: 12/09/17 08:13 Dose: 81 mg Atorvastatin Calcium (Lipitor) 40 mg PO DAILY [facility] Last Admin: 12/09/17 08:13 Dose: 40 mg Benzocaine/Menthol (Cepacol Lozenge) 1 each MUCOUS MEM Q2H PRN PRN Reason: Sore Throat Bisacodyl (Dulcolax) 10 mg RECTAL DAILY PRN PRN Reason: Constipation Budesonide (Pulmicort) 1 mg INHALATION RT-BID [facility] Last Admin: 12/09/17 07:45 Dose: 1 mg Escitalopram Oxalate (Lexapro) 10 mg PO HS [facility] Last Admin: 12/08/17 20:33 Dose: 10 mg Piperacillin/Tazobactam/ (Dextrose 3.375 gm/ IV Solution) 50 mls @ 12.5 mls/hr IVPB Q8HR [facility] Last Admin: 12/09/17 08:16 Dose: 12.5 mls/hr Sodium Chloride (Saline 0.9%) 1,000 mls @ 20 mls/hr IV .Q24H [facility] Last Admin: 12/09/17 08:17 Dose: 20 mls/hr Insulin Aspart (Novolog) 0 unit SQ ACHS [facility] PRN Reason: Protocol Last Admin: 12/09/17 12:23 Dose: Not Given Magnesium Hydroxide (Milk Of Magnesia) 2,400 mg PO BID PRN PRN Reason: Constipation Metoprolol Tartrate (Lopressor) 50 mg PO BID [facility] Last Admin: 12/09/17 08:13 Dose: 50 mg Miscellaneous Information (Magnesium Per Protocol) 1 each MISCELLANE DAILY PRN ; Protocol PRN Reason: Per Protocol Miscellaneous Information (Phosphorus Per Protocol) 1 each MISCELLANE DAILY PRN ; Protocol PRN Reason: Per Protocol Miscellaneous Information (Potassium Per Protocol) 1 each MISCELLANE DAILY PRN ; Protocol PRN Reason: Per Protocol Ondansetron HCl (Zofran) 4 mg IVP Q6HR PRN PRN Reason: Nausea And Vomiting Pantoprazole Sodium (Protonix) 40 mg PO AC-BRKFST [facility] Last Admin: 12/09/17 08:11 Dose: 40 mg Senna/Docusate Sodium (Senokot-S) 2 each PO HS [facility] Last Admin: 12/08/17 20:37 Dose: 2 each Sodium Chloride (Saline Flush) 10 ml IV BID [facility] Last Admin: 12/09/17 08:13 Dose: 10 ml 12/13/17 maintained on Merrem and vancomycin. BiPAP dependent. Worsening chest x-ray, chest CT reporting near complete collapse of left lung, enlarging moderate to large pericardial effusion. Echo pending. Multiple episodes of diarrhea. Atrial flutter with RVR, Review systems unable to be performed as patient on BiPAP Active Medications Generic Name Dose Route Start Last Admin Trade Name Freq PRN Reason Stop Dose Admin Hydrocodone Bitart/Acetaminophen 1 each 12/01/17 12:20 12/13/17 08:08 [place] 5-325 PO 1 each Q4HR PRN Administration MILD TO MODERATE Pain Hydrocodone Bitart/Acetaminophen 2 each 12/01/17 12:20 12/13/17 15:08 [place] 5-325 PO 2 each Q4HR PRN Administration MODERATE TO SEVERE Pain Albuterol/Ipratropium 3 ml 11/26/17 17:53 12/08/17 05:16 Duoneb 0.5 Mg-3 Mg/3 Ml Soln INHALATION 3 ml RT-Q2H PRN Administration Shortness Of Breath Or Wheezing Albuterol/Ipratropium 3 ml 12/03/17 08:00 12/13/17 16:02 Duoneb 0.5 Mg-3 Mg/3 Ml Soln INHALATION Not Given RT-QID [facility] Amiodarone HCl 200 mg 12/11/17 20:00 12/13/17 09:12 Cordarone PO 200 mg BID@0800,2000 [facility] Administration Aspirin 81 mg 11/26/17 10:15 12/13/17 09:13 Aspirin PO 81 mg DAILY [facility] Administration Atorvastatin Calcium 40 mg 11/26/17 09:00 12/13/17 09:13 Lipitor PO 40 mg DAILY [facility] Administration Benzocaine/Menthol 1 each 11/25/17 19:03 Cepacol Lozenge MUCOUS MEM Q2H PRN Sore Throat Bisacodyl 10 mg 11/26/17 17:52 12/12/17 17:45 Dulcolax RECTAL 10 mg DAILY PRN Administration Constipation Budesonide 1 mg 12/01/17 20:00 12/13/17 07:46 Pulmicort INHALATION 1 mg RT-BID [facility] Administration Escitalopram Oxalate 10 mg 12/07/17 21:00 12/12/17 20:16 Lexapro PO 10 mg HS [facility] Administration Heparin Sodium (Porcine) 5,000 unit 12/10/17 16:00 12/13/17 09:14 Heparin SQ 5,000 unit Q8HR [facility] Administration Sodium Chloride 1,000 mls @ 20 mls/hr 12/06/17 10:45 12/13/17 09:49 Saline 0.9% IV 20 mls/hr .Q24H [facility] Administration Meropenem 1 gm/ Sodium 100 mls @ 100 mls/hr 12/09/17 22:00 12/13/17 09:46 Chloride IVPB 100 mls/hr Q8HR [facility] Administration Vancomycin HCl 1,750 mg/ 250 mls @ 125 mls/hr 12/13/17 14:00 12/13/17 14:15 Sodium Chloride IVPB 125 mls/hr Q12HR@0000,1200 [facility] Administration Insulin Aspart 0 unit 12/02/17 21:00 12/13/17 12:34 Novolog SQ Not Given ACHS [facility] Protocol Lactobacillus Acidoph/Bulgaricus 1 each 12/13/17 16:00 Lactinex PO TID [facility] Magnesium Hydroxide 2,400 mg 11/26/17 17:53 Milk Of Magnesia PO BID PRN Constipation Metoprolol Tartrate 50 mg 12/11/17 22:00 12/13/17 09:13 Lopressor PO 50 mg BID@1000,2200 [facility] Administration Miscellaneous Information 1 each 11/25/17 19:03 Magnesium Per Protocol MISCELLANE DAILY PRN Per Protocol Protocol Miscellaneous Information 1 each 11/25/17 19:03 Phosphorus Per Protocol MISCELLANE DAILY PRN Per Protocol Protocol Miscellaneous Information 1 each 11/25/17 19:03 Potassium Per Protocol MISCELLANE DAILY PRN Per Protocol Protocol Ondansetron HCl 4 mg 11/25/17 19:03 Zofran IVP Q6HR PRN Nausea And Vomiting Pantoprazole Sodium 40 mg 12/05/17 07:30 12/13/17 09:13 Protonix PO 40 mg AC-BRKFST [facility] Administration Senna/Docusate Sodium 2 each 11/26/17 21:00 12/12/17 20:16 Senokot-S PO 2 each HS [facility] Administration Sodium Chloride 10 ml 11/25/17 21:00 12/13/17 09:49 Saline Flush IV 10 ml BID [facility] Administration 12/14/17 maintained on Merrem and vancomycin per infectious disease .remains BiPAP dependent. Chest x-ray reporting persistent significant left lung collapse with minimal improvement. Scheduled for bronchoscopy this afternoon. INR 2.1, receiving FFP. No diarrhea today. Telemetry atrial fibrillation/ flutter, heart rate 110s to 120s. 12/15/2017 developed worsened respiratory distress despite BiPAP, diuretics, antiarrhythmics, intubated last night. Received 2 more units of FFP this morning, underwent bronchoscopy this morning; mucous plug discovered in the left lower lobe. Pleural Cultures pending. Maintained on FiO2 45%/+5 of PEEP. Continues on IV antibiotics. Currently on 2 mics of Levophed and diprovan drips. Atrial tachycardia, heart rate in the 130s. Amiodarone discontinued as per cardiology. Developed increased bleeding from wound VAC with turning during bath-Anticoagulation placed on hold. Afebrile. 12/16/17 remains vent dependent, FiO2 40%/+5 of PEEP. Sedated on Diprovan. Requiring low-dose of Levophed. Marginal urine output, received albumin last night. Tachycardia resolved, sinus rhythm per telemetry. Wound VAC dressing changed today, serosanguineous drainage. Bronchoscopy yesterday, cultures pending. Blood sugars controlled. 12/17/2017 today weaning trials of pressure support in increments of 3 hours , resting at night, FiO2 40%/+5 of PEEP. Chest x-ray reporting improvement. Currently on Levophed. Tolerating tube feeds at goal with minimal to no residual. Maintained on IV antibiotics as per infectious disease. Telemetry sinus rhythm. 12/20/17 remains vent dependent FiO2 40%/PEEP of 5. Yesterday vent weaning during the day hours, tolerated well. Wound VAC changed yesterday. Scheduled for sternal flap repair tomorrow. Maintained on IV antibiotics. T-max 99.4. Last night returned into rapid atrial flutter, Currently sinus rhythm. 12/21/2017 remains vent dependent. Telemetry sinus rhythm. Tube feeds on hold. Scheduled for sternal flap repair today. 12/22/2017 underwent flap repair/grafting yesterday with plastic surgeon. Pain controlled. Extubated this morning, maintained on BiPAP. Telemetry sinus rhythm. Albumin remains at 2.2, receiving albumin. 12/23/17 .Patient respiratory arrested while Dobbhoff attempting to be placed, returned into atrial fibrillation with RVR. Reintubated, converted back into sinus rhythm. Midsternal dressing being changed at bedside by cardiothoracic surgery. Trach and PEG being discussed as per pulmonary. 12/24/17 scheduled for tracheostomy this morning. Chest x-ray reporting progressive CHF change with bilateral effusions possible underlying pneumonia, ET tube 1 cm above osvaldo. Telemetry sinus rhythm. Levophed currently on hold. 12/27/2017 Dobbhoff recently placed, developed nausea vomiting throughout the night. Abdomen distended, tympanic.Tube feeds placed on hold, flat plate of abdomen pending. PEG tube being discussed. Passing loose stools. Denies abdominal pain .Telemetry sinus rhythm. Maintained on FiO2 35%/+ of PEEP. Tolerated CPAP for 3 hours yesterday. Yesterday and today patient received Lasix IV push, diuresed well with 24-hour I&O reflecting a negative fluid balance. Chest x-ray reporting similar findings. T-max 99.2. 12/28/2017 maintained on IV antibiotics, significant wound drainage. Afebrile. remains vent dependent, FiO2 35%/+5 of PEEP. Chest x-ray stable. Yesterday abdominal x-ray reported possible underlying ileus, obstruction. Dobbhoff tube feeds placed on hold. Follow-up Abdominal x-ray this morning reporting markedly dilated small bowel loops ,severe postoperative ileus with partial obstruction. Abdomen distended. Weaning parameters suboptimal ,no weaning trials today as per pulmonary. Hemoglobin 7.anasarca, weeping .receiving Albumin , Lasix IV push 1. 12/29/17 maintained on vancomycin, Merrem. abdomen less distended today.small bowel movements 2 yesterday, on lactulose. TPN to be initiated today. Wound VAC /dressing changed this a.m.remains vent dependent and 35% FiO2/+5 of PEEP.pressure-support 2hr.hemoglobin 7.2.evaluated by general surgery with recommendations of no abdominal surgical intervention at this time. 12/30/2017.returned into atrial flutter last night, heart rates up to the 130s, currently heart rate in the 120s. Continues on Beta krunal,amiodarone and Cardizem.tolerating TPN.hemoglobin 7.1, potassium 3.1, being supplemented by ICU replacement protocol.afebrile.Dobhoff with tube feeds at low rate initiated. 12/31/17 remains vent dependent, FiO2 35%/+5 of PEEP. Telemetry atrial fib/ aflutter heart rates in the 140s. TPN infusing. Failed Dobhoff trial this morning, Flat plate reporting gas-filled loops of bowel without evident pneumoperitoneum. Abdomen distended, Dobbhoff discontinued, NG tube placed. Passing flatus. 01/04/2018 remains vent dependent, tolerated SIMV 12 hours yesterday.currently on 35% FiO2/+5 of PEEP. PEG tube scheduled for tomorrow. Telemetry A. fib flutter 120s with repeat cardioversion being discussed once patient therapeutic. Select specialty Possibly early next week. Objective - Vital Signs Vital signs: Vital Signs Temp 98.8 F 01/04/18 16:00 Pulse 118 H 01/04/18 18:00 Resp 17 01/04/18 18:00 BP 116/54 12/19/17 10:00 Pulse Ox 98 01/04/18 18:00 Intake & Output 01/03/18 01/04/18 01/04/18 18:59 06:59 18:59 Intake Total 2848 965 6030 Output Total 1060 550 800 Balance -41 47 418 Weight 96.7 kg 98.2 kg Intake: IV 579 237 407 Dextrose 5%-0.45% NaCl 1, 90 110 80 000 ml @ 10 mls/hr IV . Q24H [facility] Rx#:[id number] Meropenem 1 gm In Sodium 200 100 100 Chloride 0.9% 100 ml @ 200 mls/hr IVPB Q8HR [facility] Rx#:[id number] Pressure Bag 39 27 27 Vancomycin 1,500 mg In 250 Sodium Chloride 0.9% 250 ml @ 125 mls/hr IVPB Q36H [facility] Rx#:[id number] potassium 200 Tube Feeding 440 360 721 Other 90 Output: Drainage 585 85 240 Medial Chest Incision - 300 Woundvac Right Abdomen 285 85 240 Urine 475 465 560 Other: Voiding Method Indwelling Catheter Indwelling Catheter Indwelling Catheter ABP, PAP, CO, CI - Last Documented Arterial Blood Pressure 100/58 Pulmonary Artery Pressure 38/33 Cardiac Output 5.8 Cardiac Index 2.9 - Exam PHYSICAL EXAM: VITAL SIGNS: As above GENERAL: Sitting up in bed, on mechanical ventilation HEENT: Conjunctivae normal. eyes normal. NG tube present. NECK: No JVD. Tracheostomy tube present CARDIOVASCULAR: S1, S2 muffled , tachycardic,no gallops, no murmurs RESPIRATION: Breath sounds diminished in the bases,coarse. Sternal wound VAC dressing present. ABDOMEN: Distended, tympanic, right-sided abdominal dressing clean dry and intact with HENRI- serous drainage, positive bowel sounds Extremities: Improving edema PSYCHIATRY:/NERVOUS SYSTEM: Unable to assess as patient on mechanical ventilation, Skin: Midsternal dressing clean dry and intact, right medial buttock & right buttock optifoam dressing intact, right wrist area ulcerations-dressing clean dry and intact.posterior scalp with pressure ulceration resting on a offload- cushion - Labs CBC & Chem 7: 01/04/18 04:33 01/04/18 13:37 Labs: Abnormal Lab Results - Last 24 Hours (Table) 01/04/18 01/04/18 01/04/18 Range/Units 00:12 04:33 04:33 RBC 2.82 L (3.80-5.40) m/uL Hgb 7.6 L (11.4-16.0) gm/dL Hct 24.5 L (34.0-46.0) % MCHC 30.9 L (31.0-37.0) g/dL RDW 19.5 H (11.5-15.5) % Neutrophils # 9.1 H (1.3-7.7) k/uL Lymphocytes # 0.6 L (1.0-4.8) k/uL ABG pH (7.35-7.45) ABG HCO3 (21-25) mmol/L ABG Total CO2 (19-24) mmol/L ABG O2 Saturation (94-97) % Carbon Dioxide 31 H (22-30) mmol/L BUN 43 H (7-17) mg/dL POC Glucose (mg/dL) 108 H (75-99) mg/dL 01/04/18 01/04/18 01/04/18 Range/Units 06:23 07:54 11:59 RBC (3.80-5.40) m/uL Hgb (11.4-16.0) gm/dL Hct (34.0-46.0) % MCHC (31.0-37.0) g/dL RDW (11.5-15.5) % Neutrophils # (1.3-7.7) k/uL Lymphocytes # (1.0-4.8) k/uL ABG pH 7.49 H (7.35-7.45) ABG HCO3 31 H (21-25) mmol/L ABG Total CO2 33 H (19-24) mmol/L ABG O2 Saturation 98.9 H (94-97) % Carbon Dioxide (22-30) mmol/L BUN (7-17) mg/dL POC Glucose (mg/dL) 116 H 109 H (75-99) mg/dL 04/03/18 Range/Units 17:03 RBC (3.80-5.40) m/uL Hgb (11.4-16.0) gm/dL Hct (34.0-46.0) % MCHC (31.0-37.0) g/dL RDW (11.5-15.5) % Neutrophils # (1.3-7.7) k/uL Lymphocytes # (1.0-4.8) k/uL ABG pH (7.35-7.45) ABG HCO3 (21-25) mmol/L ABG Total CO2 (19-24) mmol/L ABG O2 Saturation (94-97) % Carbon Dioxide (22-30) mmol/L BUN (7-17) mg/dL POC Glucose (mg/dL) 106 H (75-99) mg/dL Microbiology - Last 24 Hours (Table) 01/02/18 06:00 Stool Culture - Preliminary Stool Assessment and Plan Assessment: 1. Status post CABG with mitral valve replacement 2. Acute blood loss anemia with massive blood transfusions postoperatively, in a patient with history of GI bleed,multifactorial 3. Hypertension 4. Left subclavian stenosis 5. Proximal atrial fibrillation/flutter status post cardioversion with recurrence of atrial fibrillation 6. Acute Hypoxic respiratory failure, Re intubated x2. Status post tracheostomy 7. Obesity, BMI 41.6 8. S/P PICC line placement 9. 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 Acute UTI Serratia marcescens, E. coli 11. Bilateral pleural effusions, improved with diuretics. Possible aspiration pneumonia, possible fluid overload. 12. Sternal wound debridement, culture growing Serratia marcescens, status post wound VAC. Status post sternal flap grafting. 13. Pressure ulceration of back and buttocks, stage III 14. Diarrhea, ruling out C. difficile colitis. 15. Status post bronchoscopy with left lower lobe mucous plug discovered 16. ileus, improving 17. TPN Plan: Continue on current medication regime , amiodarone, metoprolol ,reglan, monitoring and symptomatic treatment. scheduled for PEG tube placement tomorrow , repeat cardioversion as mentioned above.strict aspiration precautions- antiarrhythmics as per cardiology. Maintain IV antibiotics, nebulized bronchodilators, steroids. selective care specialtypossibly later this week or early next week. Prognosis guarded given multiple complex medical issues. The impression and plan of care has been dictated as directed. : I performed a history and examination of this patient, discussed the same with the dictator. I agree with the dictator's note ,documented as a scribe. Any additional findings or plans will be noted.
[2018-01-04] MEDS: VANCOMYCIN 1,500 MG in SODIUM CHLORIDE 0.9% 250 ML IVPB SCH (20:11)
[2018-01-04] MEDS: SENNOSIDES-DOCUSATE SODIUM 1 EACH TAB PO SCH (20:11)
[2018-01-04] MEDS: ESCITALOPRAM 10 MG TAB PO SCH (20:11)
--- NOTE | 2018-01-04 20:30 | P.PN ---
Subjective Progress Note Date: 01/04/18 Principal diagnosis: Sternal wound dehiscence Pleasant 67-year-old female who has an extensive past medical history who is now 14 days postoperative from her open heart procedure it which point in time a mitral valve placement occurred, reverse saphenous vein coronary artery bypass grafting 1 to obtuse marginal, Maze procedure and ligation of the left atrial appendage all occurred interoperatively left ventricular wall tear occurred and was repaired. The patient has a known history of multiple medical troubles before her surgery that included her obesity, COPD and marked deconditioning. Patient has had difficulties recently that included urinary tract infection with E. coli and Serratia and has been treated with intravenous antibiotic therapy with Zosyn. She was having some improvement but then developed dehiscence of her sternal wound and there are plans for surgical debridement tomorrow wound culture showing gram-negative bacilli and with at the infectious diseases consultation was requested. The patient continues to have significant respiratory difficulties and is currently on BiPAP for support. Postoperatively the patient was hemodynamically unstable which made even turning of the patient not possible which has resulted in unavoidable areas of skin breakdown, that are now treatable given her improvement 12/10/2017 reveals the patient to be postoperative from the sternal wound debridement. The surgical note as well as discussion with the surgical team reveals evidence of poor bone quality and all of the sternal wires had pulled through her bony areas. Negative pressure therapy is in place. She is tolerating this well. Plastic surgery consult has been requested for reconstruction of her chest in the near future. Gram-negative bacilli growing from the sternal wound. She is quite comfortable after procedure, chest tube was placed of the left cavity and this is improved some left lung function and she seems less short of breath. The daughter is present and her questions were answered. 12/11/2017 reveals the patient to have had some respiratory distress today and is back on BiPAP at this time. She relates that her pain is under much significant control. Been no other new acute complaints are being made. 12/13/2017 the patient remains in the ICU she is currently on BiPAP but relates that she is quite comfortable. We will work with the nursing staff to change her VAC dressing at this time. await the plastic surgery timeline. 12/15/2017 reveals the patient to remain in intensive care unit, her status has worsened and that she developed flash pulmonary edema and respiratory failure requiring reintubation sedation mechanical ventilation. She underwent bronchoscopy today for removal of mucous plugs and to help with the collapsed left lower lobe. The patient has require some vasopressor support but is more stable this afternoon than earlier. She is sedated and comfortable. She has significant decline of hemoglobin is 7.6. Anticoagulation was held. Is being closely monitored by surgery and they await the plastic surgery intervention. 12/16/2017 cases briefly discussed with the cardiothoracic nurse practitioner in that the wound VAC is being changed today. It is unchanged with no difficulties. No further bleeding is noted. Plastic surgery evaluation apparently will occur tomorrow so the surgical plan can be devised. 12/20/2017 since last visit current thoracic has again change the wound VAC without difficulties. She tolerated it well. She remains on the ventilator at this point in time, does not appear to have any plans for weaning because she will have her plastic closure over open chest tomorrow. She's been hemodynamically stable with intermittent atrial flutter. No significant changes of oxygen requirements, drainage from the wound VAC is minimal as is drainage from her chest tube. 12/21/2017 patient is status post the partial plastic closure of her sternal wound. Complete cardiac coverage occurred but only partial closure was possible. Oxygen requirements are improving postoperative and is being closely watched for any further blood loss anemia. 12/23/2017 reveals the patient to be extubated on BiPAP. She is comfortable with her pain level is about a 2. Shortness of breath is not severe. She is unable to eat and a Dobbhoff will be placed a bit later today to help her with nutritional status to help her recovery. The current situation is discussed with the cardiothoracic surgeon team 12/24/2017 reveals evidence of the changes status in that she has now had a tracheostomy applied due to her chronic respiratory failure. Cardiothoracic surgery has changed the dressing today. Patient is comfortable after her surgery. Denies new acute discomforts. 12/25/2017 reveals that the patient is doing well with her tracheostomy. She is on 35% FiO2 with excellent saturations. The patient relates that she is comfortable her pain level is no more than a 4. She is receiving feedings via the Dobbhoff is tolerating that well but is having a few soft stools without swapnil diarrhea. 12/27/2017 patient remained stable after tracheostomy. With pain level is no more than a 2 at this point in time. Feedings via the Dobbhoff are going well. The wound VAC dressing was changed today without difficulties. Leukocytosis is improving. No hypotension. 12/28/2017. Overall the patient has been stable and that her pulmonary status without acute change. Doing well with the tracheostomy. Patient however developed significant abdominal distention with a tympanic abdomen. Abdominal x -ray revealed evidence of ileus. She's been seen by general surgery and they will determine if she needs an NG tube based on x-rays. She apparently is more comfortable this evening that she was earlier in the day. Nursing staff relates no fevers. 12/29/2017 patient is stable. Not having new acute difficulties. Is noted did have a pressure ulceration to the posterior aspect of the scalp that is being treated with a fall offloading cushion. Patient is actually quite comfortable today. Her ileus is starting to improve. Surgery he has no plans for surgical intervention into the abdomen. Is tolerating TPN. 12/30/2017 the patient is stable. She is doing well with her physical therapy and her antibiotic therapy for the sternal wound dehiscence. Ileus is improving and tolerating her TPN well. 12/31/2017 patient has been seen by the cardiothoracic team and wound VAC was changed without difficulty. She is having significant ongoing atrial flutter and has been seen by cardiology and they await medication effect for spontaneous transition back to a normal sinus mechanism that she has done the past. Patient is mildly short of breath but does well on the current ventilator settings. Her pain level is no more than a 2 and she is doing well with her physical therapy. NG tube was placed and this has given her relief of her distention and discomfort from her ileus 01/03/2018 patient is comfortable today. She has an IMV ventilation and other than some tiredness she relates she is doing well. Her pain level is 0. No difficulty with the recent dressing changes. Tolerating tube feeding at this point in time without abdominal pain. She is tolerating tube feeds well at this time. 01/04/2018 patient is comfortable doing well tolerated CPAP for 8 hours a day. We'll have her PEG tube placed tomorrow which will then allow the next set of changes hopefully with anticoagulation, cardioversion and then placement to vent facility. Objective - Vital Signs Vital signs: Vital Signs Temp 98.8 F 01/04/18 16:00 Pulse 117 H 01/04/18 19:54 Resp 21 01/04/18 19:00 BP 116/54 12/19/17 10:00 Pulse Ox 96 01/04/18 19:00 Intake & Output 01/04/18 01/04/18 01/05/18 06:59 18:59 06:59 Intake Total 597 1358 Output Total 550 860 Balance 47 498 Weight 98.2 kg Intake: IV 237 433 Dextrose 5%-0.45% NaCl 1, 110 100 000 ml @ 10 mls/hr IV . Q24H CARLEE Rx#:[id number] Meropenem 1 gm In Sodium 100 100 Chloride 0.9% 100 ml @ 200 mls/hr IVPB Q8HR [facility]LEE Rx#:[id number] Pressure Bag 27 33 potassium 200 Tube Feeding 360 835 Other 90 Output: Drainage 85 250 Right Abdomen 85 250 Urine 465 610 Other: Voiding Method Indwelling Catheter Indwelling Catheter ABP, PAP, CO, CI - Last Documented Arterial Blood Pressure 121/69 Pulmonary Artery Pressure 38/33 Cardiac Output 5.8 Cardiac Index 2.9 - Exam Obese 67-year-old woman who is now extubated on BiPAP HEENT: Anicteric conjunctiva are pink and moist nasal mucosa grossly intact without significant lesions, there is no thrush. Oral mucosa is dry but no swapnil lesions could be seen, NG tube is now placed. Neck: The neck is supple without significant lymphadenopathy or thyromegaly. Tracheostomy intact without bleeding there is evidence of the posterior scalp lesion please refer to the nursing photography. Lungs: Symmetrical air entry is noted. There is scattered crackles but no swapnil bronchial sounds Heart: Irregular with an audible S1 and S2 soft S4 no audible murmur no click or rub Chest: The patient's mid sternotomy incision is now covered with a postoperative dressing from the plastic closure which is reported to be a partial flap closure Abdomen: Obese, Positive bowel sounds soft and nontender without palpable masses or organomegaly. There was no guarding or rebound. Distention is slightly improved with initiation of the nasogastric tube and suction. Symptomatically she feels better Extremities: The upper and lower extremities have evidence of edema harvest site is intact there is some bruising that is noted especially on the left groin area. IV sites are intact. Skin: With the nursing staff the buttocks pressure ulcerations are evaluated which are showing improvement. The ulceration on the skin fold above her buttocks is also evaluated and appears to be improving. Also improvement of the ulceration to the right wrist area. Skin however is now having some blistering due to her hypoalbuminemia and excessive volume. Sternal wound dressing is dry and intact. Neuro: Comfortable at this time pain level 0, no acute changes neurologically - Labs CBC & Chem 7: 01/04/18 04:33 01/04/18 13:37 Labs: Abnormal Lab Results - Last 24 Hours (Table) 01/04/18 01/04/18 01/04/18 Range/Units 00:12 04:33 04:33 RBC 2.82 L (3.80-5.40) m/uL Hgb 7.6 L (11.4-16.0) gm/dL Hct 24.5 L (34.0-46.0) % MCHC 30.9 L (31.0-37.0) g/dL RDW 19.5 H (11.5-15.5) % Neutrophils # 9.1 H (1.3-7.7) k/uL Lymphocytes # 0.6 L (1.0-4.8) k/uL ABG pH (7.35-7.45) ABG HCO3 (21-25) mmol/L ABG Total CO2 (19-24) mmol/L ABG O2 Saturation (94-97) % Carbon Dioxide 31 H (22-30) mmol/L BUN 43 H (7-17) mg/dL POC Glucose (mg/dL) 108 H (75-99) mg/dL 01/04/18 01/04/18 01/04/18 Range/Units 06:23 07:54 11:59 RBC (3.80-5.40) m/uL Hgb (11.4-16.0) gm/dL Hct (34.0-46.0) % MCHC (31.0-37.0) g/dL RDW (11.5-15.5) % Neutrophils # (1.3-7.7) k/uL Lymphocytes # (1.0-4.8) k/uL ABG pH 7.49 H (7.35-7.45) ABG HCO3 31 H (21-25) mmol/L ABG Total CO2 33 H (19-24) mmol/L ABG O2 Saturation 98.9 H (94-97) % Carbon Dioxide (22-30) mmol/L BUN (7-17) mg/dL POC Glucose (mg/dL) 116 H 109 H (75-99) mg/dL 01/04/18 Range/Units 17:03 RBC (3.80-5.40) m/uL Hgb (11.4-16.0) gm/dL Hct (34.0-46.0) % MCHC (31.0-37.0) g/dL RDW (11.5-15.5) % Neutrophils # (1.3-7.7) k/uL Lymphocytes # (1.0-4.8) k/uL ABG pH (7.35-7.45) ABG HCO3 (21-25) mmol/L ABG Total CO2 (19-24) mmol/L ABG O2 Saturation (94-97) % Carbon Dioxide (22-30) mmol/L BUN (7-17) mg/dL POC Glucose (mg/dL) 106 H (75-99) mg/dL Microbiology - Last 24 Hours (Table) 01/02/18 06:00 Stool Culture - Preliminary Stool Laboratory Results WBC 10.6 k/uL (3.8-10.6) 01/04/18 04:33 RBC 2.82 m/uL (3.80-5.40) L 01/04/18 04:33 Hgb 7.6 gm/dL (11.4-16.0) L 01/04/18 04:33 Hct 24.5 % (34.0-46.0) L 01/04/18 04:33 MCV 86.9 fL (80.0-100.0) 01/04/18 04:33 MCH 26.8 pg (25.0-35.0) 01/04/18 04:33 MCHC 30.9 g/dL (31.0-37.0) L 01/04/18 04:33 RDW 19.5 % (11.5-15.5) H 01/04/18 04:33 Plt Count 271 k/uL (150-450) 01/04/18 04:33 Neutrophils % 86 % 01/04/18 04:33 Neutrophils % (Manual) 98 % 12/05/17 04:25 Lymphocytes % 6 % 01/04/18 04:33 Lymphocytes % (Manual) 1 % 12/05/17 04:25 Monocytes % 5 % 01/04/18 04:33 Monocytes % (Manual) 1 % 12/05/17 04:25 Eosinophils % 2 % 01/04/18 04:33 Basophils % 0 % 01/04/18 04:33 Myelocytes % 1 % 12/03/17 04:15 Neutrophils # 9.1 k/uL (1.3-7.7) H 01/04/18 04:33 Neutrophils # (Manual) 26.95 k/uL (1.3-7.7) H 12/05/17 04:25 Lymphocytes # 0.6 k/uL (1.0-4.8) L 01/04/18 04:33 Lymphocytes # (Manual) 0.28 k/uL (1.0-4.8) L 12/05/17 04:25 Monocytes # 0.5 k/uL (0-1.0) 01/04/18 04:33 Monocytes # (Manual) 0.28 k/uL (0-1.0) 12/05/17 04:25 Eosinophils # 0.2 k/uL (0-0.7) 01/04/18 04:33 Basophils # 0.0 k/uL (0-0.2) 01/04/18 04:33 Myelocytes # (Manual) 0.17 k/uL (0) H 12/03/17 04:15 Nucleated RBCs 0 /100 WBC (0-0) 12/05/17 04:25 Manual Slide Review Performed 12/05/17 04:25 Polychromasia Present 12/03/17 04:15 Hypochromasia Marked 01/04/18 04:33 Poikilocytosis Slight 01/04/18 04:33 Anisocytosis Slight 01/04/18 04:33 Microcytosis Slight 12/17/17 04:45 Target Cells Present 12/03/17 04:15 PT 10.8 sec (9.0-12.0) 12/21/17 04:50 INR 1.1 (<1.2) 12/21/17 04:50 APTT 23.9 sec (22.0-30.0) 12/21/17 04:50 Fibrinogen 334 mg/dL (200-500) 11/26/17 04:22 Sample Site JOSEPH 01/04/18 07:54 ABG pH 7.49 (7.35-7.45) H 01/04/18 07:54 ABG pCO2 42 mmHg (35-45) 01/04/18 07:54 ABG pO2 99 mmHg (83-108) 01/04/18 07:54 ABG HCO3 31 mmol/L (21-25) H 01/04/18 07:54 ABG Total CO2 33 mmol/L (19-24) H 01/04/18 07:54 ABG O2 Saturation 98.9 % (94-97) H 01/04/18 07:54 ABG Base Excess 8.0 mmol/L 01/04/18 07:54 ABG Hematocrit 24 % (34.0-46.0) L 11/25/17 17:37 Robbi Test Yes 01/04/18 07:54 ABG Sodium 144 mmol/L (135-146) 11/25/17 17:37 ABG Potassium 3.8 mmol/L (3.4-4.5) 11/25/17 17:37 ABG Ionized Calcium 4.0 mg/dL (4.5-5.3) L 11/25/17 17:37 ABG Glucose 139 mg/dL (75-99) H 11/25/17 17:37 ABG Lactic Acid 2.8 mmol/L (0.5-1.6) H* 11/25/17 17:37 Hemoglobin 7.8 gm/dL (11.4-16.0) L 11/25/17 17:37 FiO2 35 % 01/04/18 07:54 Sodium 139 mmol/L (137-145) 01/04/18 04:33 Potassium 4.0 mmol/L (3.5-5.1) 01/04/18 13:37 Chloride 100 mmol/L (98-107) 01/04/18 04:33 Carbon Dioxide 31 mmol/L (22-30) H 01/04/18 04:33 Anion Gap 8 mmol/L 01/04/18 04:33 BUN 43 mg/dL (7-17) H 01/04/18 04:33 Creatinine 0.90 mg/dL (0.52-1.04) 01/04/18 04:33 Est GFR (MDRD) Af Amer >60 (>60 ml/min/1.73 sqM) 12/07/17 04:00 Est GFR (MDRD) Non-Af >60 (>60 ml/min/1.73 sqM) 12/07/17 04:00 Est GFR (CKD-EPI)AfAm 77 (>60 ml/min/1.73 sqM) 01/04/18 04:33 Est GFR (CKD-EPI)NonAf 67 (>60 ml/min/1.73 sqM) 01/04/18 04:33 Glucose 91 mg/dL (74-99) 01/04/18 04:33 POC Glucose (mg/dL) 106 mg/dL (75-99) H 01/04/18 17:03 POC Glu Folder Machine Operator ID Virginia Ware 01/04/18 17:03 Calcium 8.6 mg/dL (8.4-10.2) 01/04/18 04:33 Ionized Calcium Bruce 4.7 mg/dL (4.5-5.3) 12/11/17 15:45 Phosphorus 3.7 mg/dL (2.5-4.5) 01/04/18 04:33 Magnesium 2.0 mg/dL (1.6-2.3) 01/04/18 04:33 Total Bilirubin 0.4 mg/dL (0.2-1.3) 12/31/17 04:30 AST 36 U/L (14-36) 12/31/17 04:30 ALT 34 U/L (9-52) 12/31/17 04:30 Alkaline Phosphatase 88 U/L (38-126) 12/31/17 04:30 Total Protein 6.2 g/dL (6.3-8.2) L 12/31/17 04:30 Albumin 3.1 g/dL (3.5-5.0) L 12/31/17 04:30 Prealbumin 7.0 mg/dL (18.0-42.0) L 12/27/17 05:10 Triglycerides 130 mg/dL (<150) 12/29/17 11:45 Cholesterol 80 mg/dL (<200) 12/29/17 11:45 LDL Cholesterol, Calc 34 mg/dL (0-99) 12/29/17 11:45 HDL Cholesterol 20 mg/dL (40-60) L 12/29/17 11:45 Arterial Blood Potassium 3.8 mmol/L (3.4-4.5) 11/25/17 17:37 Arterial Blood Glucose 139 mg/dL (75-99) H 11/25/17 17:37 Urine Color Yellow 12/04/17 10:00 Urine Appearance Cloudy (Clear) H 12/04/17 10:00 Urine pH 5.5 (5.0-8.0) 12/04/17 10:00 Ur Specific Kathryn 1.015 (1.001-1.035) 12/04/17 10:00 Urine Protein Trace (Negative) H 12/04/17 10:00 Urine Glucose (UA) Negative (Negative) 12/04/17 10:00 Urine Ketones Negative (Negative) 12/04/17 10:00 Urine Blood Negative (Negative) 12/04/17 10:00 Urine Nitrite Negative (Negative) 12/04/17 10:00 Urine Bilirubin Negative (Negative) 12/04/17 10:00 Urine Urobilinogen <2.0 mg/dL (<2.0) 12/04/17 10:00 Ur Leukocyte Esterase Negative (Negative) 12/04/17 10:00 Urine RBC 7 /hpf (0-5) H 12/04/17 10:00 Urine WBC 1 /hpf (0-5) 12/04/17 10:00 Ur Squamous Epith Cells 8 /hpf (0-4) H 12/04/17 10:00 Urine Bacteria Occasional /hpf (None) H 12/04/17 10:00 Urine Mucus Rare /hpf (None) H 12/04/17 10:00 Fluid Source Bronchial Wash 12/15/17 10:40 Fluid Color Colorless 12/15/17 10:40 Fluid Appearance Cloudy 12/15/17 10:40 Fluid RBC 150 /uL 12/15/17 10:40 Fluid Nucleated Cells 6900 /uL 12/15/17 10:40 Fluid Polynuclear WBCs 95 % 12/15/17 10:40 Fluid Mononuclear WBCs 5 % 12/15/17 10:40 Stl Cryptosporidium Ag Negative (Negative) 01/02/18 06:00 Stool Giardia Source Stool 01/02/18 06:00 Stl Giardia Antigen Negative (Negative) 01/02/18 06:00 Vancomycin Trough 22.9 ug/mL 01/01/18 04:45 Random Vancomycin 21.2 ug/mL 12/16/17 04:15 Heparin-Ind Plt Ab Scrn 0.231 OD (<0.4) 11/29/17 04:50 C. difficile (EIA) Intrp Negative (Negative) 01/02/18 06:00 Virus Source See Below 12/15/17 10:40 Viral Test See Below 12/15/17 10:40 Virus Analysis Interp See Below 12/15/17 10:40 Blood Type A Positive 12/21/17 11:28 Blood Type Recheck No 12/21/17 11:28 Antibody Screen NEGATIVE 12/21/17 11:28 Crossmatch See Detail 12/14/17 10:10 Transfuse Cryo [id number] 11/26/17 00:39 Transfuse Plasma 12/15/2017 12/15/17 05:51 Transfuse Platelets [id number] 11/25/17 14:55 Spec Expiration Date 12/24/2017 - 232712/21/17 11:28 Microbiology 01/02/18 06:00 Stool Stool Culture - Preliminary 12/10/17 10:40 Chest Fungal Culture - Preliminary 12/10/17 10:45 Chest Fungal Culture - Preliminary 12/10/17 10:50 Chest Fungal Culture - Preliminary 01/02/18 06:00 Stool Stool for WBCs - Final 12/15/17 10:40 Bronchial Washings - Left Acid Fast Bacilli Smear - Final 12/15/17 10:40 Bronchial Washings - Left Acid Fast Bacilli Culture - Preliminary 12/10/17 10:50 Chest Acid Fast Bacilli Smear - Final 12/10/17 10:50 Chest Acid Fast Bacilli Culture - Preliminary 12/10/17 10:45 Chest Acid Fast Bacilli Smear - Final 12/10/17 10:45 Chest Acid Fast Bacilli Culture - Preliminary 12/24/17 11:30 Catheter Tip Catheter Tip Culture - Final 12/15/17 10:40 Bronchial Washings - Left Fungal Culture - Preliminary Rachana albicans 12/15/17 10:40 Bronchial Washings - Left Gram Stain - Final 12/15/17 10:40 Bronchial Washings - Left Bronchial Washings Culture - Final Rachana albicans 12/14/17 21:30 Sputum Gram Stain - Final 12/14/17 21:30 Sputum Sputum Culture - Final Rachana albicans 12/10/17 10:50 Chest Anaerobic Culture - Final 12/10/17 10:40 Chest Anaerobic Culture - Final 12/10/17 10:45 Chest Anaerobic Culture - Final 12/13/17 05:27 Urine,Catheterized Urine Culture - Final 12/10/17 10:40 Chest Gram Stain - Final 12/10/17 10:40 Chest Wound Culture - Final Serratia marcescens 12/10/17 10:45 Chest Gram Stain - Final 12/10/17 10:45 Chest Tissue Culture - Final Serratia marcescens 12/10/17 10:50 Chest Gram Stain - Final 12/10/17 10:50 Chest Tissue Culture - Final Serratia marcescens 12/07/17 15:40 Chest Gram Stain - Final 12/07/17 15:40 Chest Wound Culture - Final Serratia marcescens 12/04/17 10:00 Urine,Voided Urine Culture - Final Escherichia coli Serratia marcescens 11/26/17 04:00 Sputum Gram Stain - Final 11/26/17 04:00 Sputum Sputum Culture - Final Assessment and Plan (1) Severe mitral regurgitation Current Visit: Yes Status: Chronic Code(s): I34.0 - NONRHEUMATIC MITRAL ( VALVE) INSUFFICIENCY SNOMED Code(s): 72890538 (2) CAD (coronary artery disease) Current Visit: Yes Status: Chronic Code(s): I25.10 - ATHSCL HEART DISEASE OF [place] CORONARY ARTERY W/O ANG PCTRS SNOMED Code(s): 03195303 (3) Acute blood loss as cause of postoperative anemia Current Visit: Yes Status: Acute Code(s): D62 - ACUTE POSTHEMORRHAGIC ANEMIA SNOMED Code(s): 86696468642002899 (4) Pressure ulcer of contiguous region involving back and buttock, stage 3 Current Visit: Yes Status: Acute Code(s): L89.43 - PRESSR ULCER OF CONTIG SITE OF BACK, BUTTOCK AND HIP, STG 3 SNOMED Code(s): 044261812 (5) Sternal wound dehiscence Narrative/Plan: 67-year-old woman presents to Hospital for treatment of her severe mitral irritation. Underwent mitral valve replacement, coronary artery bypass grafting 1, Maze procedure and clipping of the left atrial appendage with a complication of the left ventricular wall tear. The patient has had a very protracted recovery she is now day 14 post operative and is still having difficulty with her respiratory status requiring BiPAP. The patient's nutritional status and underlying comorbidities have complicated her care. She now has evidence of the sternal dehiscence with evidence of gram negatives bacilli being found at the site. There is evidence of urinary tract infection with E. coli and Serratia. This Serratia species is somewhat resistant and consequently we'll alter the current antimicrobial therapy from Zosyn to meropenem to ensure coverage for other potential pathogens that are resistant that could be in the sternal wound while we await cultures. The patient will be going to the operating room tomorrow for debridement and wound VAC placement. The cultures were further direct the overall course of antibiotics. Urinary infection appears to be doing somewhat better. The patient fortunately is comfortable and doing well with her BiPAP. 12/10/2017 the patient is status post surgery and actually is feeling a bit better this afternoon than yesterday. Her pain is quite well controlled. She is not on BiPAP. She is less short of breath. Wound culture has verified the Serratia marcescens to the sternal wound. We'll constantly continue the current course of meropenem due to some of the resistance patterns or seeing with the species. Continue local care at this point time with the negative pressure system to the sternal wound. The plastic surgery consult is being requested for reconstruction of her chest. She will require a course of intravenous antibiotic therapy given her complex infection. Dual-lumen PICC is already in place. We'll repeat the discharge planners as to her place of rehab. 12/11/2017 the patient is metabolically stable but is having difficulties with her respiratory status and is now back on BiPAP which has been intermittent over the last multiple days. Negative pressure therapy remains intact and the sternum and we await the plastic surgery intervention. 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 Continue supportive care, and nutritional supplements as possible to improve for tissue healing. 12/13/2017 patient is on BiPAP. She is comfortable at this time. Receiving her intravenous antibiotic therapy without difficulties. At this time the surgeon present in a sterile fashion the wound VAC is removed. Surgeon evaluates and then the wound VAC is reapplied with 2 of the white foam, periwound protected with DuoDERM no difficulty with the seal. Merrem continues. 12/15/2017 the patient has had marked worsening of her status in that she had respiratory failure requiring reintubation and mechanical ventilation. She is now sedated and comfortable but has had some hemodynamic instability and is now back on vasopressor therapy. Bronchoscopy is performed and suctioning of mucous plugs as allowed some improvement of her pulmonary status. Further cultures are process. Meropenem and vancomycin continue for the isolated Serratia and concerns for resistant gram-positive infection at this time. Plastic surgery evaluation is in process and surgical plans for later this week appear to be possible. 12/16/2017 reveals the patient to be stable from the last 24 hours. Her ventilatory settings are similar. She's currently not on vasopressor therapy. She is tolerating current antibiotic therapy well with no difficulties with rash and diarrhea or marked changes of her hematological parameters. She's had no further active bleeding. Sputum culture with gram-positive cocci seen vancomycin was added we await final cultures. 12/20/2017 patient remained stable and is being prepped for her sternal reconstruction surgery tomorrow. She's not on vasopressor therapy, and vent settings are stable. Most recent bronchoscopy showed mucous plug no evidence of any new pathogens except yeast was found likely from upper airways. Fluconazole was added given her significant risks, although fungal pneumonia is not occurring at this time. At the time of reconstruction repeat samplings from her sternum will be helpful to help direct the course of antibiotic therapy , pathology and culture of the sternum will be helpful. Remains on the meropenem and vancomycin at this time. 12/21/2017 the patient is status post the sternal reconstruction with muscle flap, reportedly is only a partial closure at this time. However visit. The cardiac structure is completely covered. The patient is showing improvement in her cardiopulmonary status today. No active bleeding is noted. She is tolerating current antibiotic therapy well with meropenem and vancomycin. Await final culture and pathological data to help derive the course of her antibiotic therapy 12/23/2017 reveals the patient to be improved, she has been extubated and tolerating BiPAP well. The case is discussed with the cardiothoracic surgeon. The muscle flap was then performed and there is a biological skin substitute over the flap. She related that the plastic surgeon would not allow a wound VAC to be placed for approximately 10 days after the surgery. We will monitor. Continue current antibiotic therapy planning a multiweek course of therapy for the complex sternal wound infection. 12/24/2017 reveals the patient to have further improvement that she has had a tracheostomy placed. This will hopefully help her long-term weaning situation and also help with the nutritional difficulties. As she has improvement of her status hopefully the significant difference with her skin from the edema low albumin and blistering will improve. Receiving extensive antibiotic therapy for the sternal wound dehiscence will continue with the meropenem and vancomycin at this time. 12/25/2017 reveals the patient to have some improvement in the last 24 hours. She's doing well with a tracheostomy and is on 35% FiO2. Pain control is well at this point in time. Her spitting edema seems to be slightly improving and does not have as many blisters that she was having. Still does have anasarca but appears to be a bit less tight than she was a day ago. Her wounds are improving with the local wound care. Antibiotic therapy continues with meropenem and vancomycin for the sternal wound dehiscence and infection. Dressing changes have been per the cardiothoracic team to the chest wound. The abdominal wound is healing well and is having some serous drainage related to the anasarca. Hopefully with improving edema status and improve nutritional status anasarca will resolve. 12/27/2017 reveals a patient with further improvement. Her anasarca is improving and she is having less edema. She is tolerating the intravenous antibiotic therapy of meropenem and vancomycin for her sternal wound dehiscence. Leukocytosis in general is improved. No other new infections are noted. She had a wound VAC dressing change today of the sternal area. 12/28/2017 reveals the patient to have developed some bowel distention and concerns to ileus. She's been seen by general surgery. He will determine if she needs to have her Dobbhoff removed and an NG tube place. The patient has significant hypo albuminemia and is in need of the extensive supplementation, consequently TPN was requested per the surgeon. She will remain on her antibiotic therapy planning 6 weeks for the complex sternal dehiscence. Cardiothoracic surgery have changed her VAC dressing to her sternal wound. 12/29/2017 patient continues to tolerate antibiotic therapy well. Orders have been clarified for the 6 weeks of meropenem and vancomycin. cardiothoracic is in charge of the dressing changes to the complex sternal dehiscence wound. Tolerating TPN well with overall goal to improve her very low protein which will help her significant and extensive tissue edema. 12/30/2017 patient continues to have some improvement, if she is improving will likely go to select specialty for her long-term weaning of physical therapy.she is doing better from her ileus and TPN is being well-tolerated.will be on intravenous antibiotic therapy through 01/21/2018 12/31/2017 patient is stable at this time status post the NG tube has been placed for her ileus. Nutrition via TPN. Antibiotic therapy with the meropenem and vancomycin continues through 01/21/2018. Follow up cultures as indicated. Wound VAC is being changed as per cardiothoracic surgery. The pressure ulcerations to the buttocks area and posterior scalp are improving. 01/03/2018 reveals the patient to be feeling somewhat better today. Pain level is 0. Tolerating nutrition well at this point in time and has been cleared for a PEG tube to be placed to allow easier nutrition when she is ready for transfer to select specialty for long-term weaning. He has tolerated IMV trial today quite well. Antibiotic therapy continues to 01/21/2018. 01/04/2018 H and doing well on her current CPAP trials. PEG tube tomorrow. If this occurs she will then be able to have anticoagulation, cardioversion. Once cardioversion occurs in her heart rate improve she would then be a candidate for transfer to select specialty for long-term weaning. Antibiotic therapy until 01/21/2018 Current Visit: Yes Status: Acute Code(s): T81.32XA - DISRUPTION OF INTERNAL OPERATION (SURGICAL) WOUND, NEC, INIT SNOMED Code(s): 42088330
[2018-01-04 23:54] LABS: Glucose,Whole Blood 126 mg/dL (75-99)
[2018-01-05] MEDS: INSULIN ASPART 100 UNIT/ML 1 ML 10 ML VIAL SQ SCH ×4 (00:13→18:30)
[2018-01-05 00:14] LABS: Glucose,Whole Blood 99 mg/dL (75-99)
[2018-01-05] MEDS: IPRATROPIUM-ALBUTEROL 3 ML NEB INHALATION SCH ×6 (00:35→19:20)
[2018-01-05 05:10] LABS: Anisocytosis Moderate; Basophils % (A) 0 %; Eosinophils # (A) 0.3 k/uL (0-0.7); Eosinophils % (A) 2 %; HCT 27.3 % (34.0-46.0); HGB 8.3 gm/dL (11.4-16.0); Hypochromasia Marked; Lymphocytes # (A) 0.8 k/uL (1.0-4.8); Lymphocytes % (A) 6 %; MCH 26.2 pg (25.0-35.0); MCHC 30.3 g/dL (31.0-37.0); MCV 86.3 fL (80.0-100.0); Mean Platelet Volume 7.9; Microcytosis Slight; Monocytes # (A) 0.6 k/uL (0-1.0); Monocytes % (A) 5 %; Neutrophils # (A) 10.7 k/uL (1.3-7.7); Neutrophils % (A) 86 %; Platelet Count 346 k/uL (150-450); RBC 3.17 m/uL (3.80-5.40); RDW 20.3 % (11.5-15.5); WBC 12.5 k/uL (3.8-10.6)
[2018-01-05 05:22] LABS: Calcium 8.6 mg/dL (8.4-10.2); Phosphorus 3.9 mg/dL (2.5-4.5)
[2018-01-05] MEDS: METOCLOPRAMIDE 5 MG/ML 2 ML VIAL IVP SCH ×3 (06:41→18:30)
[2018-01-05] MEDS: DILTIAZEM ORAL 60 MG TAB PO SCH ×3 (06:41→23:18)
[2018-01-05 07:42] LABS: ABG Base Excess 6.3 mmol/L; ABG HCO3 30 mmol/L (21-25); ABG Oxygen Saturation 99.9 % (94-97); ABG PCO2 41 mmHg (35-45); ABG PH 7.47 (7.35-7.45); ABG PO2 115 mmHg (83-108); ABG TCO2 31 mmol/L (19-24)
[2018-01-05] MEDS: BUDESONIDE 1 MG/2 ML NEBU INHALATION SCH ×2 (08:48→19:20)
[2018-01-05] MEDS: HEPARIN SODIUM,PORCINE 5,000 UNIT/ML 1 ML VIAL SQ SCH ×2 (09:22→15:27)
[2018-01-05] MEDS: AMIODARONE 200 MG TAB PO SCH ×2 (09:22→21:21)
[2018-01-05] MEDS: MEROPENEM 1 GM in SODIUM CHLORIDE 0.9% 100 ML IVPB SCH ×2 (09:22→15:28)
[2018-01-05] MEDS: PANTOPRAZOLE 40 MG TABLET PO SCH (09:22)
--- NOTE | 2018-01-05 09:22 | XR ---
EXAMINATION TYPE: XR chest 1V portable DATE OF EXAM: 01/05/2018 COMPARISON: 01/04/2018 HISTORY: Post cardiac surgery TECHNIQUE: Single frontal view of the chest is obtained. FINDINGS: Postsurgical changes noted. Central line, tracheostomy tube and NG tube are stable. Bilate ral pleural effusion and consolidation with diffuse interstitial pattern. The heart is enlarged. Vasc ular stent noted overlying the left upper mediastinum. Atherosclerotic change aorta. IMPRESSION: 1. Bilateral infiltrate and pleural effusion correlate for CHF.
[2018-01-05] MEDS: ATORVASTATIN 40 MG TAB PO SCH (09:23)
[2018-01-05] MEDS: ASPIRIN 81 MG PO SCH (09:23)
[2018-01-05] MEDS: LACTOBACILLUS ACIDOPH & BULGAR 1 EACH PACKET PO SCH ×3 (09:23→23:18)
[2018-01-05] MEDS: METOPROLOL TARTRATE 50 MG TAB NG-TUBE SCH ×2 (09:24→21:22)
[2018-01-05] MEDS: DEXTROSE 5%-0.45% NACL 1,000 ML IV SCH (09:25)
--- NOTE | 2018-01-05 09:35 | P.PN ---
Subjective Progress Note Date: 01/05/18 Principal diagnosis: Severe mitral regurgitation. Coronary artery disease. Paroxysmal atrial fibrillation on Coumadin for anticoagulation. Recent hospitalization for lower GI bleed, duodenal ulcer. History of left subclavian stenosis with stent placement 2014 with recent discovery of critical re-in-stent stenosis. Previous tobacco dependence with preoperative FEV1 60% of predicted. Hypertension. Hyperlipidemia. Gallbladder disease. Family history of heart disease. Preoperative nasal swab positive for MRSA. Preoperative anemia. POD #41 mitral valve replacement using a 25 mm Ribera bioprosthetic tissue valve. Coronary artery bypass grafting 1, reverse saphenous vein graft to the obtuse marginal artery. Maze procedure. Endoscopic harvesting of the right greater saphenous vein. Epi-aortic ultrasound. Intraoperative transesophageal echocardiogram. Ligation of the left atrial appendage using a 40 mm AtriClip. Intraoperative left ventricular wall tear, an unexpected but potential outcome of surgery Acute blood loss anemia, and expected outcome given patient's preoperative anemia and intraoperative bleeding. Postoperative prolonged mechanical ventilation secondary to hemodynamic instability, and unexpected but potential outcome of surgery given the extensive nature of her perioperative course. POD #12 placement of a #8 Shiley nonfenestrated tracheostomy tube. Sternal incision dehiscence, a possible outcome of surgery given patient's obesity, nutrition status, debility POD #13 right rectus abdominous muscle flap closure, open sternal wound. Closure of sternal wound and muscle flap with skin graft substitute, 238 cm. Implantation of reconstructive graft for closure of abdominal wall wound, [address] Krause POD #26 sternal wound debridement with placement of wound VAC. Postoperative left lower lobe collapse secondary to mucous plugging, and unexpected but potential outcome of surgery. Bronchial washings positive for Rachana species. POD #21 bronchoscopy and bronchoalveolar lavage of the left lower lobe and extraction of mucous plug. Postoperative ileus, an unexpected but potential outcome of surgery. The patient's currently sitting up in bed in no acute distress. Denies pain, shortness of breath. Still in rapid A. flutter but heart rate is down into the 120s. Weaned on SIMV yesterday for most of the day yesterday. Tube feedings on hold at this time as patient is to have PEG tube placed today. Objective - Vital Signs Vital signs: Vital Signs Temp 98.0 F 01/05/18 04:00 Pulse 122 H 01/05/18 09:00 Resp 20 01/05/18 07:00 BP 106/58 01/04/18 08:59 Pulse Ox 99 01/05/18 07:00 Intake & Output 01/04/18 01/05/18 01/05/18 18:59 06:59 18:59 Intake Total 1358 708 Output Total 860 790 Balance 498 -82 Weight 100.6 kg Intake: IV 433 594 Dextrose 5%-0.45% NaCl 1, 100 120 000 ml @ 10 mls/hr IV . Q24H [facility] Rx#:[id number] Meropenem 1 gm In Sodium 100 200 Chloride 0.9% 100 ml @ 200 mls/hr IVPB Q8HR [facility] Rx#:[id number] Pressure Bag 33 18 Vancomycin 1,500 mg In 250 Sodium Chloride 0.9% 250 ml @ 125 mls/hr IVPB Q36H [facility] Rx#:[id number] potassium 200 6 Tube Feeding 835 114 Other 90 Output: Drainage 250 400 Right Abdomen 250 400 Urine 610 390 Other: Voiding Method Indwelling Catheter Indwelling Catheter ABP, PAP, CO, CI - Last Documented Arterial Blood Pressure 100/56 Pulmonary Artery Pressure 38/33 Cardiac Output 5.8 Cardiac Index 2.9 - Constitutional General appearance: Present: cooperative, no acute distress, obese - Respiratory Details: Lung sounds and is bilaterally. Respirations even, nonlabored. Currently on mechanical ventilation with oxygen saturation 99%. Ventilator settings assist control mode, FiO2 35%, tidal volume 400, respiratory rate 20, PEEP 5. ABGs this morning 7.47/41/115/30/6.3/99% and 35% FiO2. - Cardiovascular Details: S1, S2 present. Regular, tachycardic rate and rhythm, rapid atrial flutter on telemetry. Open chest with wound VAC in place. Palpable peripheral pulses bilaterally. Bilateral lower extremity edema present, decreased from yesterday. No calf pain or tenderness noted. Legs with Vance wraps from toes to knees. SCDs present. Right axillary arterial line, left brachial PICC line present. - Gastrointestinal Gastrointestinal Comment(s): Abdomen soft, nontender, nondistended, obese, no tympany noted. Active bowel sounds 4 quadrants. NG tube present, tube feedings on hold for PEG tube placement today. Bowel movement 2 yesterday. - Genitourinary Genitourinary Comment(s): Mason present draining clear, medially urine. Output 25-40 mL/h overnight. - Integumentary Integumentary Comment(s): Skin is warm and dry. Anterior chest open with wound VAC in place. Abdominal incision was clean dry intact maya, drainage 100 mL in the last 8 hours. - Neurologic Neurologic: Present: CNII-XII intact - Musculoskeletal Musculoskeletal: Present: generalized weakness, strength equal bilaterally - Psychiatric Psychiatric: Present: A&O x's 3, appropriate affect, intact judgment & insight - Allied health notes Allied health notes reviewed: nursing - Labs CBC & Chem 7: 01/05/18 05:00 01/05/18 05:00 Labs: Abnormal Lab Results - Last 24 Hours (Table) 01/04/18 01/04/18 01/04/18 Range/Units 11:59 17:03 23:52 WBC (3.8-10.6) k/uL RBC (3.80-5.40) m/uL Hgb (11.4-16.0) gm/dL Hct (34.0-46.0) % MCHC (31.0-37.0) g/dL RDW (11.5-15.5) % Neutrophils # (1.3-7.7) k/uL Lymphocytes # (1.0-4.8) k/uL ABG pH (7.35-7.45) ABG pO2 (83-108) mmHg ABG HCO3 (21-25) mmol/L ABG Total CO2 (19-24) mmol/L ABG O2 Saturation (94-97) % BUN (7-17) mg/dL POC Glucose (mg/dL) 109 H 106 H 126 H (75-99) mg/dL 01/05/18 01/05/18 01/05/18 Range/Units 05:00 05:00 07:39 WBC 12.5 H (3.8-10.6) k/uL RBC 3.17 L (3.80-5.40) m/uL Hgb 8.3 L (11.4-16.0) gm/dL Hct 27.3 L (34.0-46.0) % MCHC 30.3 L (31.0-37.0) g/dL RDW 20.3 H (11.5-15.5) % Neutrophils # 10.7 H (1.3-7.7) k/uL Lymphocytes # 0.8 L (1.0-4.8) k/uL ABG pH 7.47 H (7.35-7.45) ABG pO2 115 H (83-108) mmHg ABG HCO3 30 H (21-25) mmol/L ABG Total CO2 31 H (19-24) mmol/L ABG O2 Saturation 99.9 H (94-97) % BUN 43 H (7-17) mg/dL POC Glucose (mg/dL) (75-99) mg/dL Microbiology - Last 24 Hours (Table) 01/02/18 06:00 Stool Culture - Preliminary Stool - Imaging and Cardiology Chest x-ray: report reviewed, image reviewed Assessment and Plan (1) Acute blood loss anemia Current Visit: Yes Status: Acute Code(s): D62 - ACUTE POSTHEMORRHAGIC ANEMIA SNOMED Code(s): 619144713 (2) CAD (coronary artery disease) Current Visit: Yes Status: Chronic Code(s): I25.10 - ATHSCL HEART DISEASE OF [place] CORONARY ARTERY W/O ANG PCTRS SNOMED Code(s): 93541851 (3) Hyperlipidemia Current Visit: Yes Status: Chronic Code(s): E78.5 - HYPERLIPIDEMIA, UNSPECIFIED SNOMED Code(s): 11409431 (4) Hypertension Current Visit: Yes Status: Chronic Code(s): I10 - ESSENTIAL (PRIMARY) HYPERTENSION SNOMED Code(s): 33838285 (5) Severe mitral regurgitation Current Visit: Yes Status: Chronic Code(s): I34.0 - NONRHEUMATIC MITRAL ( VALVE) INSUFFICIENCY SNOMED Code(s): 97130710 (6) Stenosis of left subclavian artery Current Visit: Yes Status: Chronic Code(s): I77.1 - STRICTURE OF ARTERY SNOMED Code(s): 72910831142496439 (7) Paroxysmal atrial fibrillation Current Visit: No Status: Resolved Code(s): I48.0 - PAROXYSMAL ATRIAL FIBRILLATION SNOMED Code(s): 606609676 (8) History of GI bleed Current Visit: No Status: Resolved Code(s): Z87.19 - PERSONAL HISTORY OF OTHER DISEASES OF THE DIGESTIVE SYSTEM SNOMED Code(s): 306828698 (9) Family history of coronary artery disease Current Visit: Yes Status: Chronic Code(s): Z82.49 - FAMILY HX OF ISCHEM HEART DIS AND OTH DIS OF THE CIRC SYS SNOMED Code(s): 035260165 (10) Ileus, postoperative Current Visit: Yes Status: Acute Code(s): K91.89 - OTH POSTPROCEDURAL COMPLICATIONS AND DISORDERS OF DGSTV SYS; K56.7 - ILEUS, UNSPECIFIED SNOMED Code(s): 353764700 (11) Pressure ulcer of contiguous region involving back and buttock, stage 3 Current Visit: Yes Status: Acute Code(s): L89.43 - PRESSR ULCER OF CONTIG SITE OF BACK, BUTTOCK AND HIP, STG 3 SNOMED Code(s): 258843858 (12) Sternal wound dehiscence Current Visit: Yes Status: Acute Code(s): T81.32XA - DISRUPTION OF INTERNAL OPERATION (SURGICAL) WOUND, NEC, INIT SNOMED Code(s): 62375526 Plan: 1. Continue baby aspirin, statin, subcu heparin, beta krunal. 2. Continue amiodarone for atrial fibrillation prophylaxis. No further IV amiodarone. 3. Continue Cardizem for rate control. 4. Ventilator management per pulmonology. Wean as tolerated. 5. Patient to have PEG tube placed today, tube feeding on hold. 6. Continue meropenem, Vanco per Dr. Olivera. 7. Will monitor labs, chest x-rays. 8. Bronchodilators per pulmonology. 9. Will restart Coumadin after PEG tube is placed. Once therapeutic, Dr. Crawley will cardiovert patient. No IV heparin. 10. GI/DVT prophylaxis. 11. Increase activity. PT/OT/cardiac rehab following. 12. Continue IV Reglan every 6 hours per general surgery. 13. Keep Mason for strict accurate intake and output. Change out every 7 days , Mason changed yesterday. 14. Wound VAC to be changed on Wednesday, Wednesday, and Wednesday by nurse practitioner. Will change today. 15. Local wound care to back of head and lower back. Silvadene for left upper thigh skin tear. 16. No diuresis today as patient is nothing by mouth. 17. More recommendations as patient progresses. Patient will need select specialty at discharge. Time with Patient: Greater than 30
[2018-01-05] MEDS ORDERED: IV FLUID CONTINUATION 1,000 ML IV ONE (10:29)
[2018-01-05] MEDS ORDERED: PHENYLEPHRINE-0.9% NACL SYG 1 MG/10 ML SYRINGE ONE (10:30)
[2018-01-05] MEDS ORDERED: PROPOFOL 10 MG/ML 20 ML VIAL IV ONE (10:30)
[2018-01-05] MEDS ORDERED: LIDOCAINE 1% INJ 10MG/ML (20 ML MDV) ONE (10:30)
[2018-01-05 10:42] LABS: Glucose,Whole Blood 111 mg/dL (75-99)
--- NOTE | 2018-01-05 12:29 | P.PN ---
Subjective Progress Note Date: 01/05/18 Principal diagnosis: Status post open heart This is a pleasant 67-year-old female patient who sees Dr. Crawley as an outpatient who underwent an open heart surgery where she had CABG 1 associated with mitral valve replacement and maze procedure, with a postoperative course was complex and complicated by respiratory failure, chest incision dehiscence, where the patient did have to go to the OR again and have another surgery. Currently the patient is in chronic respiratory failure and she does have a tracheostomy hemodynamically she continues to have atrial flutter with heart rate around 115 beats per minute.the hemoglobin continues to be around 8. She was started on oral anticoagulation with Coumadin today for possible cardioversion in the next 48-72 hours. Objective - Vital Signs Vital signs: Vital Signs Temp 98.5 F 01/05/18 08:00 Pulse 120 H 01/05/18 11:57 Resp 20 01/05/18 11:00 BP 106/58 01/04/18 08:59 Pulse Ox 99 01/05/18 11:00 Intake & Output 01/04/18 01/05/18 01/05/18 18:59 06:59 18:59 Intake Total 1358 708 189 Output Total 860 790 140 Balance 498 -82 49 Weight 100.6 kg 100.6 kg Intake: IV 433 594 189 Dextrose 5%-0.45% NaCl 1, 100 120 30 000 ml @ 10 mls/hr IV . Q24H [facility] Rx#:[id number] Meropenem 1 gm In Sodium 100 200 100 Chloride 0.9% 100 ml @ 200 mls/hr IVPB Q8HR [facility] Rx#:[id number] Pressure Bag 33 18 9 Vancomycin 1,500 mg In 250 Sodium Chloride 0.9% 250 ml @ 125 mls/hr IVPB Q36H [facility] Rx#:[id number] potassium 200 6 Tube Feeding 835 114 Other 90 Output: Drainage 250 400 Right Abdomen 250 400 Urine 610 390 140 Other: Voiding Method Indwelling Catheter Indwelling Catheter ABP, PAP, CO, CI - Last Documented Arterial Blood Pressure 104/60 Pulmonary Artery Pressure 38/33 Cardiac Output 5.8 Cardiac Index 2.9 - Constitutional General appearance: Present: no acute distress - Respiratory Respiratory: bilateral: diminished - Cardiovascular Rhythm: regular Heart sounds: normal: S1, S2 - Labs CBC & Chem 7: 01/05/18 05:00 01/05/18 05:00 Labs: Abnormal Lab Results - Last 24 Hours (Table) 01/04/18 01/04/18 01/05/18 Range/Units 17:03 23:52 05:00 WBC (3.8-10.6) k/uL RBC (3.80-5.40) m/uL Hgb (11.4-16.0) gm/dL Hct (34.0-46.0) % MCHC (31.0-37.0) g/dL RDW (11.5-15.5) % Neutrophils # (1.3-7.7) k/uL Lymphocytes # (1.0-4.8) k/uL ABG pH (7.35-7.45) ABG pO2 (83-108) mmHg ABG HCO3 (21-25) mmol/L ABG Total CO2 (19-24) mmol/L ABG O2 Saturation (94-97) % BUN 43 H (7-17) mg/dL POC Glucose (mg/dL) 106 H 126 H (75-99) mg/dL 01/05/18 01/05/18 01/05/18 Range/Units 05:00 07:39 10:40 WBC 12.5 H (3.8-10.6) k/uL RBC 3.17 L (3.80-5.40) m/uL Hgb 8.3 L (11.4-16.0) gm/dL Hct 27.3 L (34.0-46.0) % MCHC 30.3 L (31.0-37.0) g/dL RDW 20.3 H (11.5-15.5) % Neutrophils # 10.7 H (1.3-7.7) k/uL Lymphocytes # 0.8 L (1.0-4.8) k/uL ABG pH 7.47 H (7.35-7.45) ABG pO2 115 H (83-108) mmHg ABG HCO3 30 H (21-25) mmol/L ABG Total CO2 31 H (19-24) mmol/L ABG O2 Saturation 99.9 H (94-97) % BUN (7-17) mg/dL POC Glucose (mg/dL) 111 H (75-99) mg/dL Microbiology - Last 24 Hours (Table) 01/02/18 06:00 Stool Culture - Preliminary Stool Assessment and Plan Assessment: Assessment #1 respiratory failure #2 status post open heart and status post CABG and mitral valve replacement #3 persistent atrial flutter #4 congestive heart failure #5 sternal wound infection #6 peripheral vascular disease and known left subclavian stenosis #7 multiple comorbid conditions Plan #1 Coumadin was started today. #2 cardioversion in the next 48 hours.
--- NOTE | 2018-01-05 13:02 | P.PCN ---
Date of Procedure: 01/05/18 Preoperative Diagnosis: Inability to swallow secondary to that dependency Postoperative Diagnosis: Same Procedure(s) Performed: Insertion of percutaneous endoscopic gastrostomy tube Anesthesia: MAC Surgeon: Arjun Aldridge Estimated Blood Loss (ml): 5 Pathology: none sent Condition: stable Disposition: no change Indications for Procedure: The patient is unable to swallow secondary to that dependency Operative Findings: No significant abnormalities were visualized in the esophagus or stomach Description of Procedure: With the patient spine position, under benefit of IV sedation, we prepped the abdominal wall in the standard fashion. We passed the endoscope under direct visualization. The stomach was insufflated. We visualized an area on the anterior wall of stomach corresponding to the anterior abdominal wall, on the left side just beneath the costal margin. This area, having been prepped, had a quarter inch transverse incision made in this area. A needle and trocar were inserted through this. The inner trocar was removed and a guidewire placed through the needle. The guidewire was grasped with a snare and brought out through the mouth. We then fitted retrograde over this the PEG tube in a modified Seldinger fashion. One the plastic of the PEG tube exiting the anterior abdominal wall it was utilized as traction to draw the PEG tube down into proper position. We followed it down with the scope until it abutted the gastric mucosa without tension. We removed all possible air from the stomach and the scope was removed. Adapters appropriately were placed on the PEG tube. Sterile dressings were applied. The patient tolerated the procedure well.
--- NOTE | 2018-01-05 13:40 | P.PN ---
Subjective Progress Note Date: 01/05/18 Principal diagnosis: Status post CABG and mitral valve replacement postoperative day # 41 This is a 67-year-old female, status post 1 vessel bypass surgery and mitral valve replacement, patient is postoperative day #39. Patient also had surgical flap of the sternal 1 as she developed wound dehiscence and infection. Postoperative day #13. Patient also underwent tracheostomy and she is postoperative day #10. Patient remains on mechanical ventilation, continues to have chronic atelectasis and possible pneumonia in the left lower lobe, remains on assist control mode of mechanical ventilation, and today I will plan to try her on IMV and pressure support hoping to cut down the IMV rate gradually and possibly keep her on pressure support only. In the meantime the patient has been evaluated by [facility] care [facility] for possible transfer to their facility. Cardiac-mcguire the patient remains in atrial flutter, ventricular rate is about 120. That is being addressed by cardiology on the case. Her ventilator settings are tidal volume of 400 assist control rate of 20 FiO2 of 35 % PEEP of 5. Toprol pressure is about 20. Chest x-ray as noted above. Suspect some component of mild congestive heart failure. And left lower lobe atelectasis. Labs were all reviewed, ABG showed a pO2 of 121 pCO2 of 38 pH of 7.52 basic metabolic profile is normal BUN is 43 creatinine 0.91 WBC count is 13.7 hemoglobin is 8.1. Reevaluated today on 01/04/2018, patient remains on mechanical ventilation, with able to elevate many hours of pressure support of 12 and IMV of 6 yesterday. Today I plan to try pressure support of 12 and CPAP. Patient is scheduled to have a PEG tube placement is also scheduled to have cardioversion after a good course of anticoagulation and PEG tube placement. Hopefully this will be all done this week, and then we can potentially consider transferring the patient to a select care specialty. ABG today showed a pO2 of 99 pCO2 of 42 pH of 7.49. Rest of the labs were noted to be unremarkable. Chest x-ray is basically the same, continues to show mild congestive changes, and left retrocardiac opacity with left lower lobe atelectasis. Patient was reevaluated today on 01/05/2018, remains on mechanical ventilation, plan to give her another trial today of IMV pressure support. Patient did relatively well yesterday, but still not quite ready for extubation. Today she had a PEG tube placed by Dr. Aldridge, and she may require cardioversion tomorrow. Overall the patient continues to do about the same. Her chest x-ray continues to show some left perihilar infiltrate and left lower lobe atelectasis. Labs including CBC ABG and basic metabolic profile were all reviewed. Her ABG showed a pO2 of 115 pCO2 of 41 pH of 7.47 on 35% FiO2. Hemoglobin is 8.3 basic metabolic profile is normal. Renal profile is normal. Objective - Vital Signs Vital signs: Vital Signs Temp 98.5 F 01/05/18 08:00 Pulse 120 H 01/05/18 11:57 Resp 20 01/05/18 11:00 BP 106/58 01/04/18 08:59 Pulse Ox 99 01/05/18 11:00 Intake & Output 01/04/18 01/05/18 01/05/18 18:59 06:59 18:59 Intake Total 1358 708 189 Output Total 860 790 140 Balance 498 -82 49 Weight 100.6 kg 100.6 kg Intake: IV 433 594 189 Dextrose 5%-0.45% NaCl 1, 100 120 30 000 ml @ 10 mls/hr IV . Q24H [facility] Rx#:[id number] Meropenem 1 gm In Sodium 100 200 100 Chloride 0.9% 100 ml @ 200 mls/hr IVPB Q8HR [facility] Rx#:[id number] Pressure Bag 33 18 9 Vancomycin 1,500 mg In 250 Sodium Chloride 0.9% 250 ml @ 125 mls/hr IVPB Q36H [facility] Rx#:[id number] potassium 200 6 Tube Feeding 835 114 Other 90 Output: Drainage 250 400 Right Abdomen 250 400 Urine 610 390 140 Other: Voiding Method Indwelling Catheter Indwelling Catheter ABP, PAP, CO, CI - Last Documented Arterial Blood Pressure 104/60 Pulmonary Artery Pressure 38/33 Cardiac Output 5.8 Cardiac Index 2.9 - Exam General appearance: Present: cooperative, no acute distress, obese, - Neck Details: Neck is supple, no JVD, no lymphadenopathy. Tracheostomy tube is midline and intact, sutures in place. - Respiratory Details: Lungs sounds essentially diminished at the left base, Respirations are symmetrical and nonlabored with mechanical ventilator support. Oxygen saturation are 99% with current ventilator settings. - Cardiovascular Details: Pain is tachycardic at regular rate and rhythm seems to be regular. This may be a a flutter with 2 to one block. S1 and S2 present, negative for S3 , gallop or murmur. - Gastrointestinal Gastrointestinal Comment(s): Abdomen is soft, obviously less tympanic and tender compared to yesterday and there is no significant distention.. The patient had diminished bowel sounds. No direct tenderness but no rebound tenderness. No guarding. Abdominal wound is dry clean and intact. The patient has a HENRI drain in the lower abdominal wall which is draining quite extensively. - Genitourinary Genitourinary Comment(s): Mason catheter for accurate I&O. Draining clear yellow urine. - Integumentary Integumentary Comment(s): Skin is warm and dry. No clubbing or cyanosis. Anasarca with scattered areas of blistering and weeping thin serous drainage. Pressure ulcerations to her buttocks with local wound care. Ulceration to her right wrist area with dressing in place with scant serous drainage. Dressing in place to her chest wound. - Neurologic Neurologic Comment(s): Alert and following verbal commands. Nodding her head yes and no appropriately to questions. Moving all 4 extremities appropriately with weak movements. - Musculoskeletal Musculoskeletal: Present: generalized weakness, strength equal bilaterally - Psychiatric Psychiatric Comment(s): Psychiatric: Normal mood, affect, and mental status examination noted. - Labs CBC & Chem 7: 01/05/18 05:00 01/05/18 05:00 Labs: Abnormal Lab Results - Last 24 Hours (Table) 01/04/18 01/04/18 01/05/18 Range/Units 17:03 23:52 05:00 WBC (3.8-10.6) k/uL RBC (3.80-5.40) m/uL Hgb (11.4-16.0) gm/dL Hct (34.0-46.0) % MCHC (31.0-37.0) g/dL RDW (11.5-15.5) % Neutrophils # (1.3-7.7) k/uL Lymphocytes # (1.0-4.8) k/uL ABG pH (7.35-7.45) ABG pO2 (83-108) mmHg ABG HCO3 (21-25) mmol/L ABG Total CO2 (19-24) mmol/L ABG O2 Saturation (94-97) % BUN 43 H (7-17) mg/dL POC Glucose (mg/dL) 106 H 126 H (75-99) mg/dL 01/05/18 01/05/18 01/05/18 Range/Units 05:00 07:39 10:40 WBC 12.5 H (3.8-10.6) k/uL RBC 3.17 L (3.80-5.40) m/uL Hgb 8.3 L (11.4-16.0) gm/dL Hct 27.3 L (34.0-46.0) % MCHC 30.3 L (31.0-37.0) g/dL RDW 20.3 H (11.5-15.5) % Neutrophils # 10.7 H (1.3-7.7) k/uL Lymphocytes # 0.8 L (1.0-4.8) k/uL ABG pH 7.47 H (7.35-7.45) ABG pO2 115 H (83-108) mmHg ABG HCO3 30 H (21-25) mmol/L ABG Total CO2 31 H (19-24) mmol/L ABG O2 Saturation 99.9 H (94-97) % BUN (7-17) mg/dL POC Glucose (mg/dL) 111 H (75-99) mg/dL Microbiology - Last 24 Hours (Table) 01/02/18 06:00 Stool Culture - Preliminary Stool Assessment and Plan Assessment: 1 coronary artery bypass surgery with single-vessel bypass and mitral valve replacement/bioprosthetic valve. The patient is postop day #41 2 sternal wound infection with Serratia marcescens with subsequent dehiscence. The patient underwent wound debridement with subsequent muscle flap and the patient is postop day #15. The patient remains on a combination of Merrem and vancomycin. The wound VAC is still in place and this is being replaced 3 times a week 3 prolonged ventilator dependent respiratory failure, status post tracheostomy tube insertion and the patient is postop day # 12. Patient remains on assist control mode of ventilation . We will try again IMV pressure support mode of mechanical ventilation and gradually transition to pressure support only with CPAP. 4 acute on chronic respiratory failure, multifactorial. The patient's sternal wound and the muscle flap is healing for now. 5 increased edema both upper and lower extremities, improving 6 tachycardia with an a flutter rhythm, cardiology is on the case. She is mainly maintained on oral medications. No plans to cardiovert per cardiology 7 peripheral vascular disease 8 left subclavian artery stenosis status post insertion of an endovascular stent 9 anemia, a expected outcome of prolonged ICU stay and multiple surgeries 10 ileus, improving patient is on enteral feeding 11 left lung collapse status post bronchoscopy and therapeutic it was suctioning. Patient has Rachana within the sputum currently on Diflucan. Most recent chest x-ray shows adequate rest of both lungs and there is some mild component of pulmonary congestion. 12 hypertension 13 hyperlipidemia 14 anemia multifactorial with a hemoglobin level of 8.3 today 15 status post PEG tube placement postoperative day #0 Recommendation: Continue ventilatory support, continue antibiotics, nutritional support, underwent PEG tube placement today, we'll continue weaning trials, plans for cardioversion hopefully tomorrow or by the end of the week, and possible selective care transferred by the end of the week. Critical care time is 35 minutes. Time with Patient: Greater than 30
[2018-01-05] MEDS: HYDROcodone/APAP 5-325MG 1 EACH TAB PO PRN ×2 (17:30→23:18)
--- NOTE | 2018-01-05 17:34 | P.PN ---
Subjective Progress Note Date: 01/05/18 Progress note being dictated for Dr. Kitchen Interval history: This is 67-year-old female status post CABG, mitral valve replacement, status post multiple blood products transfusions. Remains vent dependent on 40% FiO2/+5 of PEEP. Chest x-ray reporting fluid overload, improvement in volume status, aeration.Maintained on norepinephrine, Primacor, dopamine and insulin drip. Cardiac index 2.7. Telemetry atrial flutter/sinus tach. Tube feeding initiated via OG tube. Hemoglobin 7.3, Platelets decreased to 64 today, maintained on low-dose aspirin. Review systems unable to obtain as patient sedated and on mechanical ventilation. Active Medications Albuterol/Ipratropium (Duoneb 0.5 Mg-3 Mg/3 Ml Soln) 3 ml INHALATION RT-Q4H [facility] Last Admin: 11/29/17 15:17 Dose: 3 ml Albuterol/Ipratropium (Duoneb 0.5 Mg-3 Mg/3 Ml Soln) 3 ml INHALATION RT-Q2H PRN PRN Reason: Shortness Of Breath Or Wheezing Amiodarone HCl (Cordarone) 200 mg PO BID [facility] Aspirin (Aspirin) 81 mg PO DAILY [facility] Last Admin: 11/29/17 08:54 Dose: 81 mg Atorvastatin Calcium (Lipitor) 40 mg PO DAILY [facility] Last Admin: 11/29/17 08:54 Dose: 40 mg Benzocaine/Menthol (Cepacol Lozenge) 1 each MUCOUS MEM Q2H PRN PRN Reason: Sore Throat Bisacodyl (Dulcolax) 10 mg RECTAL DAILY PRN PRN Reason: Constipation Chlorhexidine Gluconate (Peridex) 15 ml MUCOUS MEM BID [facility] Last Admin: 11/29/17 08:48 Dose: 15 ml Furosemide (Lasix) 40 mg IV ONCE ONE Stop: 11/29/17 20:01 Propofol 1,000 mg/ IV Solution 100 mls @ 0 mls/hr IV .Q0M [facility]; Titrate PRN Reason: Protocol Last Admin: 11/29/17 17:54 Dose: 26.13 mcg/kg/min, 17.2 mls/hr Norepinephrine Bitartrate (Levophed-0.9% Nacl 16 Mg/250ml Pmx) 16 mg in 250 mls @ 0 mls/hr IV .Q0M [facility]; Titrate PRN Reason: Protocol Last Admin: 11/29/17 17:54 Dose: 2 mcg/min, 1.875 mls/hr Sodium Chloride (Saline 0.45%) 1,000 mls @ 30 mls/hr IV .Q24H [facility] Last Admin: 11/29/17 10:28 Dose: Not Given Milrinone Lactate/Dextrose 20 (mg/ IV Solution) 100 mls @ 6.58 mls/hr IV .[id number] [facility] PRN Reason: 0.2 MCG/KG/MIN Last Admin: 11/29/17 15:38 Dose: 0.2 mcg/kg/min, 6.58 mls/hr Insulin Aspart (Novolog) 0 unit SQ Q6HR [facility] PRN Reason: Protocol Last Admin: 11/29/17 12:36 Dose: Not Given Magnesium Hydroxide (Milk Of Magnesia) 2,400 mg PO BID PRN PRN Reason: Constipation Metoprolol Tartrate (Lopressor) 12.5 mg PO BID [facility] Last Admin: 11/29/17 08:55 Dose: 12.5 mg Miscellaneous Information (Magnesium Per Protocol) 1 each MISCELLANE DAILY PRN ; Protocol PRN Reason: Per Protocol Miscellaneous Information (Phosphorus Per Protocol) 1 each MISCELLANE DAILY PRN ; Protocol PRN Reason: Per Protocol Miscellaneous Information (Potassium Per Protocol) 1 each MISCELLANE DAILY PRN ; Protocol PRN Reason: Per Protocol Miscellaneous Information (Potassium Per Protocol) 1 each MISCELLANE DAILY PRN ; Protocol PRN Reason: Per Protocol Morphine Sulfate (Morphine Oral Dana 2mg/Ml) 6 mg PO Q2H PRN PRN Reason: Severe Pain Ondansetron HCl (Zofran) 4 mg IVP Q6HR PRN PRN Reason: Nausea And Vomiting Pantoprazole Sodium (Protonix) 40 mg IVP DAILY [facility] Last Admin: 11/29/17 08:55 Dose: 40 mg Senna/Docusate Sodium (Senokot-S) 2 each PO HS [facility] Last Admin: 11/28/17 20:41 Dose: 2 each Sodium Chloride (Saline Flush) 10 ml IV BID [facility] Last Admin: 11/29/17 08:56 Dose: 10 ml 11/30/2017 Chest x-ray reporting increased congestion, received additional Lasix. extubated this morning, currently maintained on BiPAP. Norepinephrine weaned off this morning. Maintained on Primacor, cardiac index 2.6. Received 1 dose of Lasix IV push. Renal function improving. Hemoglobin 7, platelets increased to 74. Atrial flutter per telemetry. Review systems unable to obtain as patient BiPAP dependent. Active Medications Generic Name Dose Route Start Last Admin Trade Name Freq PRN Reason Stop Dose Admin Albuterol/Ipratropium 3 ml 11/25/17 20:00 11/30/17 15:23 Duoneb 0.5 Mg-3 Mg/3 Ml Soln INHALATION 3 ml RT-Q4H [facility] Administration Albuterol/Ipratropium 3 ml 11/26/17 17:53 Duoneb 0.5 Mg-3 Mg/3 Ml Soln INHALATION RT-Q2H PRN Shortness Of Breath Or Wheezing Amiodarone HCl 200 mg 11/29/17 21:00 11/30/17 08:14 Cordarone PO 200 mg BID [facility] Administration Aspirin 81 mg 11/26/17 10:15 11/30/17 08:15 Aspirin PO 81 mg DAILY [facility] Administration Atorvastatin Calcium 40 mg 11/26/17 09:00 11/30/17 08:14 Lipitor PO 40 mg DAILY [facility] Administration Benzocaine/Menthol 1 each 11/25/17 19:03 Cepacol Lozenge MUCOUS MEM Q2H PRN Sore Throat Bisacodyl 10 mg 11/26/17 17:52 Dulcolax RECTAL DAILY PRN Constipation Fondaparinux 2.5 mg 11/30/17 11:30 11/30/17 13:23 Arixtra SQ 2.5 mg DAILY [facility] Administration Norepinephrine Bitartrate 16 mg in 250 mls @ 0 mls/hr 11/26/17 04:15 11:58 Levophed-0.9% Nacl 16 Mg/250ml Pmx IV 0 mcg/min .Q0M [facility] 0 mls/hr Protocol Titration Titrate Sodium Chloride 1,000 mls @ 10 mls/hr 11/26/17 10:15 11/30/17 12:51 Saline 0.45% IV Not Given .Q24H [facility] Milrinone Lactate/Dextrose 20 100 mls @ 6.58 mls/hr 11/29/17 15:00 11/30/17 08:16 mg/ IV Solution IV 0.2 mcg/kg/min .[id number] [facility] 6.58 mls/hr 0.2 MCG/KG/MIN Infusion Insulin Aspart 0 unit 11/29/17 12:00 11/30/17 12:50 Novolog SQ Not Given Q6HR [facility] Protocol Magnesium Hydroxide 2,400 mg 11/26/17 17:53 Milk Of Magnesia PO BID PRN Constipation Metoprolol Tartrate 12.5 mg 11/26/17 09:00 11/30/17 08:15 Lopressor PO 12.5 mg BID [facility] Administration Miscellaneous Information 1 each 11/25/17 19:03 Magnesium Per Protocol MISCELLANE DAILY PRN Per Protocol Protocol Miscellaneous Information 1 each 11/25/17 19:03 Phosphorus Per Protocol MISCELLANE DAILY PRN Per Protocol Protocol Miscellaneous Information 1 each 11/25/17 19:03 Potassium Per Protocol MISCELLANE DAILY PRN Per Protocol Protocol Miscellaneous Information 1 each 11/29/17 12:01 Potassium Per Protocol MISCELLANE DAILY PRN Per Protocol Protocol Morphine Sulfate 6 mg 11/29/17 13:31 Morphine Oral Dana 2mg/Ml PO Q2H PRN Severe Pain Ondansetron HCl 4 mg 11/25/17 19:03 Zofran IVP Q6HR PRN Nausea And Vomiting Pantoprazole Sodium 40 mg 11/26/17 09:00 11/30/17 08:15 Protonix IVP 40 mg DAILY [facility] Administration Senna/Docusate Sodium 2 each 11/26/17 21:00 11/29/17 20:40 Senokot-S PO 2 each HS [facility] Administration Sodium Chloride 10 ml 11/25/17 21:00 11/30/17 08:15 Saline Flush IV 10 ml BID [facility] Administration 12/01/2017 Breathing improving, weaned off of BiPAP and down to 6 L high flow. Wheezing resolved. Chest x-ray reports improvement. Staff reports patient appeared to be choking on pills last night, speech therapy consulted. Receiving one unit of packed RBCs for hemoglobin of 6.7. Mediastinal chest tubes discontinued, left pleural chest tube remains. Maintained on Primacor. Telemetry atrial flutter. Review of systems: CONSTITUTIONAL: No fever, no malaise HEENT: No recent visual problems or hearing problems. Denied any sore throat. CARDIOVASCULAR: No chest pain, no palpitations, no syncope. PULMONARY: Improving shortness of breath, no cough, no hemoptysis. GASTROINTESTINAL: No diarrhea, no nausea, no vomiting, no abdominal pain. Normoactive bowel sounds. NEUROLOGICAL: No headaches, diffuse weakness, no numbness. HEMATOLOGICAL: Denies any bleeding or petechiae. GENITOURINARY: Denies any burning micturition, frequency, or urgency. ENDOCRINE: Denies any polyuria or polydipsia. PSYCHIATRIC: No anxiety, no depression Active Medications Hydrocodone Bitart/Acetaminophen (Hudson 5-325) 1 each PO Q4HR PRN PRN Reason: MILD TO MODERATE Pain Last Admin: 12/01/17 22:44 Dose: 1 each Hydrocodone Bitart/Acetaminophen (Hudson 5-325) 2 each PO Q4HR PRN PRN Reason: MODERATE TO SEVERE Pain Albuterol/Ipratropium (Duoneb 0.5 Mg-3 Mg/3 Ml Soln) 3 ml INHALATION RT-Q4H [facility] Last Admin: 12/02/17 15:06 Dose: 3 ml Albuterol/Ipratropium (Duoneb 0.5 Mg-3 Mg/3 Ml Soln) 3 ml INHALATION RT-Q2H PRN PRN Reason: Shortness Of Breath Or Wheezing Last Admin: 12/01/17 18:09 Dose: 3 ml Amiodarone HCl (Cordarone) 200 mg PO BID [facility] Last Admin: 12/02/17 08:10 Dose: 200 mg Aspirin (Aspirin) 81 mg PO DAILY [facility] Last Admin: 12/02/17 08:10 Dose: 81 mg Atorvastatin Calcium (Lipitor) 40 mg PO DAILY [facility] Last Admin: 12/02/17 08:10 Dose: 40 mg Benzocaine/Menthol (Cepacol Lozenge) 1 each MUCOUS MEM Q2H PRN PRN Reason: Sore Throat Bisacodyl (Dulcolax) 10 mg RECTAL DAILY PRN PRN Reason: Constipation Budesonide (Pulmicort) 1 mg INHALATION RT-BID [facility] Last Admin: 12/02/17 07:19 Dose: 1 mg Fondaparinux (Arixtra) 2.5 mg SQ DAILY [facility] Last Admin: 12/02/17 08:10 Dose: 2.5 mg Formoterol Fumarate (Perforomist) 20 mcg INHALATION RT-BID [facility] Last Admin: 12/02/17 07:36 Dose: 20 mcg Norepinephrine Bitartrate (Levophed-0.9% Nacl 16 Mg/250ml Pmx) 16 mg in 250 mls @ 0 mls/hr IV .Q0M [facility]; Titrate PRN Reason: Protocol Last Titration: 11/30/17 11:58 Dose: 0 mcg/min, 0 mls/hr Sodium Chloride (Saline 0.45%) 1,000 mls @ 10 mls/hr IV .Q24H [facility] Last Admin: 12/01/17 14:04 Dose: 10 mls/hr Milrinone Lactate/Dextrose 20 (mg/ IV Solution) 100 mls @ 6.58 mls/hr IV .[id number] [facility] PRN Reason: 0.2 MCG/KG/MIN Last Admin: 12/02/17 08:57 Dose: 0.2 mcg/kg/min, 6.58 mls/hr Insulin Aspart (Novolog) 0 unit SQ Q6HR [facility] PRN Reason: Protocol Last Admin: 12/02/17 12:53 Dose: Not Given Magnesium Hydroxide (Milk Of Magnesia) 2,400 mg PO BID PRN PRN Reason: Constipation Methylprednisolone Sodium Succinate (Solu-Medrol) 30 mg IV Q8HR [facility] Last Admin: 12/02/17 08:10 Dose: 30 mg Metoprolol Tartrate (Lopressor) 25 mg PO BID [facility] Last Admin: 12/02/17 08:59 Dose: 25 mg Miscellaneous Information (Magnesium Per Protocol) 1 each MISCELLANE DAILY PRN ; Protocol PRN Reason: Per Protocol Miscellaneous Information (Phosphorus Per Protocol) 1 each MISCELLANE DAILY PRN ; Protocol PRN Reason: Per Protocol Miscellaneous Information (Potassium Per Protocol) 1 each MISCELLANE DAILY PRN ; Protocol PRN Reason: Per Protocol Miscellaneous Information (Potassium Per Protocol) 1 each MISCELLANE DAILY PRN ; Protocol PRN Reason: Per Protocol Ondansetron HCl (Zofran) 4 mg IVP Q6HR PRN PRN Reason: Nausea And Vomiting Pantoprazole Sodium (Protonix) 40 mg IVP DAILY [facility] Last Admin: 12/02/17 08:10 Dose: 40 mg Senna/Docusate Sodium (Senokot-S) 2 each PO HS [facility] Last Admin: 12/01/17 21:55 Dose: 2 each Sodium Chloride (Saline Flush) 10 ml IV BID [facility] Last Admin: 12/02/17 12:51 Dose: 10 ml 12/02/17 Much more alert today. Oxygen weaned further down to 5 L nasal cannula, maintaining O2 sats in the high 90s. Pleural chest tube discontinued. Chest x- ray reporting probable right lower lobe atelectasis/effusion. Underwent modified barium swallow, with recommendations of regular diet, thin liquids, chin tuck, no straw, small bites/sepsis/sips; no impairment with exception of mild transient penetration with thin liquids which patient independently cleared. Yesterday receive 1 unit of packed RBCs with current hemoglobin 8. Weaning of Primacor in progress. 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 Review of systems: CONSTITUTIONAL: No fever, no malaise, no fatigue. HEENT: No recent visual problems or hearing problems. Denied any sore throat. CARDIOVASCULAR: No chest pain, no palpitations, no syncope. PULMONARY: Minimal shortness of breath, no cough, no hemoptysis. GASTROINTESTINAL: No diarrhea, no nausea, no vomiting, no abdominal pain. Normoactive bowel sounds. NEUROLOGICAL: No headaches, no weakness, no numbness. HEMATOLOGICAL: Denies any bleeding or petechiae. GENITOURINARY: Denies any burning micturition, frequency, or urgency. MUSCULOSKELETAL/RHEUMATOLOGICAL: Denies any joint pain, swelling, or any muscle pain. ENDOCRINE: Denies any polyuria or polydipsia. PSYCHIATRIC: No anxiety, no depression The rest of the 14 point review of systems is negative Active Medications Generic Name Dose Route Start Last Admin Trade Name Freq PRN Reason Stop Dose Admin Hydrocodone Bitart/Acetaminophen 1 each 12/01/17 12:20 12/01/17 22:44 Hudson 5-325 PO 1 each Q4HR PRN Administration MILD TO MODERATE Pain Hydrocodone Bitart/Acetaminophen 2 each 12/01/17 12:20 Hudson 5-325 PO Q4HR PRN MODERATE TO SEVERE Pain Albuterol/Ipratropium 3 ml 11/25/17 20:00 12/02/17 15:06 Duoneb 0.5 Mg-3 Mg/3 Ml Soln INHALATION 3 ml RT-Q4H [facility] Administration Albuterol/Ipratropium 3 ml 11/26/17 17:53 12/01/17 18:09 Duoneb 0.5 Mg-3 Mg/3 Ml Soln INHALATION 3 ml RT-Q2H PRN Administration Shortness Of Breath Or Wheezing Amiodarone HCl 200 mg 11/29/17 21:00 12/02/17 08:10 Cordarone PO 200 mg BID [facility] Administration Aspirin 81 mg 11/26/17 10:15 12/02/17 08:10 Aspirin PO 81 mg DAILY [facility] Administration Atorvastatin Calcium 40 mg 11/26/17 09:00 12/02/17 08:10 Lipitor PO 40 mg DAILY [facility] Administration Benzocaine/Menthol 1 each 11/25/17 19:03 Cepacol Lozenge MUCOUS MEM Q2H PRN Sore Throat Bisacodyl 10 mg 11/26/17 17:52 Dulcolax RECTAL DAILY PRN Constipation Budesonide 1 mg 12/01/17 20:00 12/02/17 07:19 Pulmicort INHALATION 1 mg RT-BID [facility] Administration Fondaparinux 2.5 mg 11/30/17 11:30 12/02/17 08:10 Arixtra SQ 2.5 mg DAILY [facility] Administration Formoterol Fumarate 20 mcg 12/01/17 20:00 12/02/17 07:36 Perforomist INHALATION 20 mcg RT-BID [facility] Administration Norepinephrine Bitartrate 16 mg in 250 mls @ 0 mls/hr 11/26/17 04:15 11:58 Levophed-0.9% Nacl 16 Mg/250ml Pmx IV 0 mcg/min .Q0M [facility] 0 mls/hr Protocol Titration Titrate Sodium Chloride 1,000 mls @ 10 mls/hr 11/26/17 10:15 12/02/17 15:41 Saline 0.45% IV Not Given .Q24H [facility] Milrinone Lactate/Dextrose 20 100 mls @ 6.58 mls/hr 11/29/17 15:00 12/02/17 08:57 mg/ IV Solution IV 0.2 mcg/kg/min .[id number] [facility] 6.58 mls/hr 0.2 MCG/KG/MIN Administration Insulin Aspart 0 unit 11/29/17 12:00 12/02/17 12:53 Novolog SQ Not Given Q6HR [facility] Protocol Magnesium Hydroxide 2,400 mg 11/26/17 17:53 Milk Of Magnesia PO BID PRN Constipation Methylprednisolone Sodium Succinate 30 mg 12/01/17 16:00 12/02/17 08:10 Solu-Medrol IV 30 mg Q8HR [facility] Administration Metoprolol Tartrate 25 mg 12/02/17 09:00 12/02/17 08:59 Lopressor PO 25 mg BID [facility] Administration Miscellaneous Information 1 each 11/25/17 19:03 Magnesium Per Protocol MISCELLANE DAILY PRN Per Protocol Protocol Miscellaneous Information 1 each 11/25/17 19:03 Phosphorus Per Protocol MISCELLANE DAILY PRN Per Protocol Protocol Miscellaneous Information 1 each 11/25/17 19:03 Potassium Per Protocol MISCELLANE DAILY PRN Per Protocol Protocol Miscellaneous Information 1 each 11/29/17 12:01 Potassium Per Protocol MISCELLANE DAILY PRN Per Protocol Protocol Ondansetron HCl 4 mg 11/25/17 19:03 Zofran IVP Q6HR PRN Nausea And Vomiting Pantoprazole Sodium 40 mg 11/26/17 09:00 12/02/17 08:10 Protonix IVP 40 mg DAILY [facility] Administration Senna/Docusate Sodium 2 each 11/26/17 21:00 12/01/17 21:55 Senokot-S PO 2 each HS [facility] Administration Sodium Chloride 10 ml 11/25/17 21:00 12/02/17 12:51 Saline Flush IV 10 ml BID [facility] Administration 12/03/17 maintained on nebulized bronchodilators, steroids,patient tachypneic, requiring BiPap throughout today off and on. Chest x-ray suggestive of fluid overload. Received additional Lasix. Maintained on oral amiodarone, remains in a-flutter. Overdrive atrial pacing attempted unsuccessfully. Digoxin 2 ordered. Pacer wires discontinued today. Stool at bedside with PT OT, remains extremely weak. Primacor weaned off yesterday. 2017 currently in atrial fibrillation with heart rates up into the 150s, scheduled for cardioversion tomorrow. INR 2.2. Patient currently wearing BiPAP ,has required on and off all day. Chest ultrasound reporting bilateral pleural effusions, larger on the right. Thoracentesis on hold, awaiting cardioversion.Chest x-ray reporting prominent interstitium and central vascularity, increased bibasilar density. Attempting diuresing with Lasix and Zaroxolyn. Review systems unable to obtain as patient currently on BiPAP. Active Medications Hydrocodone Bitart/Acetaminophen ([place] 5-325) 1 each PO Q4HR PRN PRN Reason: MILD TO MODERATE Pain Last Admin: 12/07/17 10:48 Dose: 1 each Hydrocodone Bitart/Acetaminophen ([place] 5-325) 2 each PO Q4HR PRN PRN Reason: MODERATE TO SEVERE Pain Last Admin: 12/07/17 16:39 Dose: 2 each Albuterol/Ipratropium (Duoneb 0.5 Mg-3 Mg/3 Ml Soln) 3 ml INHALATION RT-Q2H PRN PRN Reason: Shortness Of Breath Or Wheezing Last Admin: 12/01/17 18:09 Dose: 3 ml Albuterol/Ipratropium (Duoneb 0.5 Mg-3 Mg/3 Ml Soln) 3 ml INHALATION RT-QID [facility] Last Admin: 12/07/17 16:43 Dose: 3 ml Amiodarone HCl (Cordarone) 200 mg PO BID [facility] Aspirin (Aspirin) 81 mg PO DAILY [facility] Last Admin: 12/07/17 08:53 Dose: 81 mg Atorvastatin Calcium (Lipitor) 40 mg PO DAILY [facility] Last Admin: 12/07/17 08:53 Dose: 40 mg Benzocaine/Menthol (Cepacol Lozenge) 1 each MUCOUS MEM Q2H PRN PRN Reason: Sore Throat Bisacodyl (Dulcolax) 10 mg RECTAL DAILY PRN PRN Reason: Constipation Budesonide (Pulmicort) 1 mg INHALATION RT-BID [facility] Last Admin: 12/07/17 08:36 Dose: 1 mg Escitalopram Oxalate (Lexapro) 10 mg PO HS [facility] Furosemide (Lasix) 40 mg IV Q12HR [facility] Last Admin: 12/07/17 08:33 Dose: 40 mg Piperacillin/Tazobactam/ (Dextrose 3.375 gm/ IV Solution) 50 mls @ 12.5 mls/hr IVPB Q8HR [facility] Last Admin: 12/07/17 16:39 Dose: 12.5 mls/hr Sodium Chloride (Saline 0.9%) 1,000 mls @ 20 mls/hr IV .Q24H [facility] Last Admin: 12/07/17 13:00 Dose: 20 mls/hr Lactated Ringer's (Lactated Ringers) 1,000 mls @ 20 mls/hr IV .Q24H [facility] Last Admin: 12/06/17 20:45 Dose: 20 mls/hr Insulin Aspart (Novolog) 0 unit SQ ACHS [facility] PRN Reason: Protocol Last Admin: 12/07/17 13:01 Dose: 2 unit Magnesium Hydroxide (Milk Of Magnesia) 2,400 mg PO BID PRN PRN Reason: Constipation Methylprednisolone Sodium Succinate (Solu-Medrol) 30 mg IV Q8HR [facility] Last Admin: 12/07/17 16:39 Dose: 30 mg Metolazone (Zaroxolyn) 5 mg PO DAILY [facility] Last Admin: 12/07/17 08:53 Dose: 5 mg Metoprolol Tartrate (Lopressor) 50 mg PO BID [facility] Last Admin: 12/07/17 08:53 Dose: 50 mg Miscellaneous Information (Magnesium Per Protocol) 1 each MISCELLANE DAILY PRN ; Protocol PRN Reason: Per Protocol Miscellaneous Information (Phosphorus Per Protocol) 1 each MISCELLANE DAILY PRN ; Protocol PRN Reason: Per Protocol Miscellaneous Information (Potassium Per Protocol) 1 each MISCELLANE DAILY PRN ; Protocol PRN Reason: Per Protocol Ondansetron HCl (Zofran) 4 mg IVP Q6HR PRN PRN Reason: Nausea And Vomiting Pantoprazole Sodium (Protonix) 40 mg PO AC-BRKFST [facility] Last Admin: 12/07/17 08:53 Dose: 40 mg Senna/Docusate Sodium (Senokot-S) 2 each PO HS [facility] Last Admin: 12/06/17 20:29 Dose: 2 each Sodium Chloride (Saline Flush) 10 ml IV BID [facility] Last Admin: 12/07/17 10:48 Dose: 10 ml 12/07/2017 Underwent successful cardioversion this morning,360J X1, remains in sinus rhythm. Currently wearing BiPAP. Nonproductive cough. Diuresing well on Lasix and Zaroxolyn with 24-hour I&O reflecting a negative fluid balance. Chest x-ray reporting stable bilateral areas of infiltrate and pleural effusions , possible CHF, possible pneumonia. INR 3.8, afebrile, WBC 17. Maintained on Zosyn. Sternal wound drainage, cultures sent. 12/08/2017 Cardioverted yesterday, remains in sinus rhythm .continues requiring BiPAP for majority of morning. Echo reporting-limited study for assessment of pericardial effusion, small generalized pericardial effusion, low normal LV function, EF 50-55%. Chest CT reporting sternal dehiscence, moderate to large pericardial effusion, possible mass effect onto the left ventricle, no significant right atrial dilatation to clearly indicate tamponade, moderate left pleural effusion with adjacent complete left lower lobar and inferior lingular collapse, small right pleural effusion, right basilar subsegmental atelectasis. Chest x-ray noted. Blood sugars controlled. INR 4.8, received vitamin K this morning. Diuresing well on Lasix IV push, Zaroxolyn. 24-hour I& O reflecting a negative fluid balance, decreased weight. Midsternal incision open, draining large amount of serosanguineous drainage. Currently maintained on Zosyn. Wound cultures pending. Afebrile. Review systems unable to obtain as patient currently on BiPAP. Active Medications Generic Name Dose Route Start Last Admin Trade Name Freq PRN Reason Stop Dose Admin Hydrocodone Bitart/Acetaminophen 1 each 12/01/17 12:20 12/08/17 06:26 Hudson 5-325 PO 1 each Q4HR PRN Administration MILD TO MODERATE Pain Hydrocodone Bitart/Acetaminophen 2 each 12/01/17 12:20 12/08/17 18:41 [place] 5-325 PO 2 each Q4HR PRN Administration MODERATE TO SEVERE Pain Acetazolamide Sodium 250 mg 12/08/17 09:15 12/08/17 11:16 Diamox IV 12/08/17 21:01 250 mg Q12HR [facility] Administration Albuterol/Ipratropium 3 ml 11/26/17 17:53 12/08/17 05:16 Duoneb 0.5 Mg-3 Mg/3 Ml Soln INHALATION 3 ml RT-Q2H PRN Administration Shortness Of Breath Or Wheezing Albuterol/Ipratropium 3 ml 12/03/17 08:00 12/08/17 15:38 Duoneb 0.5 Mg-3 Mg/3 Ml Soln INHALATION 3 ml RT-QID [facility] Administration Amiodarone HCl 200 mg 12/08/17 09:00 12/08/17 08:24 Cordarone PO 200 mg BID [facility] Administration Aspirin 81 mg 11/26/17 10:15 12/08/17 08:24 Aspirin PO 81 mg DAILY [facility] Administration Atorvastatin Calcium 40 mg 11/26/17 09:00 12/08/17 08:25 Lipitor PO 40 mg DAILY [facility] Administration Benzocaine/Menthol 1 each 11/25/17 19:03 Cepacol Lozenge MUCOUS MEM Q2H PRN Sore Throat Bisacodyl 10 mg 11/26/17 17:52 Dulcolax RECTAL DAILY PRN Constipation Budesonide 1 mg 12/01/17 20:00 12/08/17 09:26 Pulmicort INHALATION 1 mg RT-BID [facility] Administration Escitalopram Oxalate 10 mg 12/07/17 21:00 12/07/17 20:10 Lexapro PO 10 mg HS [facility] Administration Piperacillin/Tazobactam/ 50 mls @ 12.5 mls/hr 12/04/17 16:00 12/08/17 16:11 Dextrose 3.375 gm/ IV Solution IVPB 12.5 mls/hr Q8HR [facility] Administration Sodium Chloride 1,000 mls @ 20 mls/hr 12/06/17 10:45 12/08/17 13:47 Saline 0.9% IV Not Given .Q24H [facility] Insulin Aspart 0 unit 12/02/17 21:00 12/08/17 17:46 Novolog SQ 1 unit ACHS [facility] Administration Protocol Magnesium Hydroxide 2,400 mg 11/26/17 17:53 Milk Of Magnesia PO BID PRN Constipation Metoprolol Tartrate 50 mg 12/06/17 21:00 12/08/17 08:24 Lopressor PO 50 mg BID [facility] Administration Miscellaneous Information 1 each 11/25/17 19:03 Magnesium Per Protocol MISCELLANE DAILY PRN Per Protocol Protocol Miscellaneous Information 1 each 11/25/17 19:03 Phosphorus Per Protocol MISCELLANE DAILY PRN Per Protocol Protocol Miscellaneous Information 1 each 11/25/17 19:03 Potassium Per Protocol MISCELLANE DAILY PRN Per Protocol Protocol Ondansetron HCl 4 mg 11/25/17 19:03 Zofran IVP Q6HR PRN Nausea And Vomiting Pantoprazole Sodium 40 mg 12/05/17 07:30 12/08/17 08:25 Protonix PO 40 mg AC-BRKFST [facility] Administration Senna/Docusate Sodium 2 each 11/26/17 21:00 12/07/17 20:16 Senokot-S PO 2 each HS [facility] Administration Sodium Chloride 10 ml 11/25/17 21:00 12/08/17 11:16 Saline Flush IV 10 ml BID [facility] Administration 12/09/17 Remains in sinus rhythm. mostly BiPAP dependent. Incentive spirometer up to 700 -750. Chest x-ray reporting improving moderate pleural effusion, cardiomegaly. Sternal wound culture positive for gram-negative bacilli. Maintained on Zosyn. Diet intake fair. Blood sugars controlled. Review systems unable to be performed as patient on BiPAP Active Medications Hydrocodone Bitart/Acetaminophen ([place] 5-325) 1 each PO Q4HR PRN PRN Reason: MILD TO MODERATE Pain Last Admin: 12/09/17 10:03 Dose: 1 each Hydrocodone Bitart/Acetaminophen (Hudson 5-325) 2 each PO Q4HR PRN PRN Reason: MODERATE TO SEVERE Pain Last Admin: 12/09/17 14:51 Dose: 2 each Albuterol/Ipratropium (Duoneb 0.5 Mg-3 Mg/3 Ml Soln) 3 ml INHALATION RT-Q2H PRN PRN Reason: Shortness Of Breath Or Wheezing Last Admin: 12/08/17 05:16 Dose: 3 ml Albuterol/Ipratropium (Duoneb 0.5 Mg-3 Mg/3 Ml Soln) 3 ml INHALATION RT-QID [facility] Last Admin: 12/09/17 15:42 Dose: 3 ml Amiodarone HCl (Cordarone) 200 mg PO BID [facility] Last Admin: 12/09/17 08:12 Dose: 200 mg Aspirin (Aspirin) 81 mg PO DAILY [facility] Last Admin: 12/09/17 08:13 Dose: 81 mg Atorvastatin Calcium (Lipitor) 40 mg PO DAILY [facility] Last Admin: 12/09/17 08:13 Dose: 40 mg Benzocaine/Menthol (Cepacol Lozenge) 1 each MUCOUS MEM Q2H PRN PRN Reason: Sore Throat Bisacodyl (Dulcolax) 10 mg RECTAL DAILY PRN PRN Reason: Constipation Budesonide (Pulmicort) 1 mg INHALATION RT-BID [facility] Last Admin: 12/09/17 07:45 Dose: 1 mg Escitalopram Oxalate (Lexapro) 10 mg PO HS [facility] Last Admin: 12/08/17 20:33 Dose: 10 mg Piperacillin/Tazobactam/ (Dextrose 3.375 gm/ IV Solution) 50 mls @ 12.5 mls/hr IVPB Q8HR [facility] Last Admin: 12/09/17 08:16 Dose: 12.5 mls/hr Sodium Chloride (Saline 0.9%) 1,000 mls @ 20 mls/hr IV .Q24H [facility] Last Admin: 12/09/17 08:17 Dose: 20 mls/hr Insulin Aspart (Novolog) 0 unit SQ ACHS [facility] PRN Reason: Protocol Last Admin: 12/09/17 12:23 Dose: Not Given Magnesium Hydroxide (Milk Of Magnesia) 2,400 mg PO BID PRN PRN Reason: Constipation Metoprolol Tartrate (Lopressor) 50 mg PO BID [facility] Last Admin: 12/09/17 08:13 Dose: 50 mg Miscellaneous Information (Magnesium Per Protocol) 1 each MISCELLANE DAILY PRN ; Protocol PRN Reason: Per Protocol Miscellaneous Information (Phosphorus Per Protocol) 1 each MISCELLANE DAILY PRN ; Protocol PRN Reason: Per Protocol Miscellaneous Information (Potassium Per Protocol) 1 each MISCELLANE DAILY PRN ; Protocol PRN Reason: Per Protocol Ondansetron HCl (Zofran) 4 mg IVP Q6HR PRN PRN Reason: Nausea And Vomiting Pantoprazole Sodium (Protonix) 40 mg PO AC-BRKFST [facility] Last Admin: 12/09/17 08:11 Dose: 40 mg Senna/Docusate Sodium (Senokot-S) 2 each PO HS [facility] Last Admin: 12/08/17 20:37 Dose: 2 each Sodium Chloride (Saline Flush) 10 ml IV BID [facility] Last Admin: 12/09/17 08:13 Dose: 10 ml 12/13/17 maintained on Merrem and vancomycin. BiPAP dependent. Worsening chest x-ray, chest CT reporting near complete collapse of left lung, enlarging moderate to large pericardial effusion. Echo pending. Multiple episodes of diarrhea. Atrial flutter with RVR, Review systems unable to be performed as patient on BiPAP Active Medications Generic Name Dose Route Start Last Admin Trade Name Freq PRN Reason Stop Dose Admin Hydrocodone Bitart/Acetaminophen 1 each 12/01/17 12:20 12/13/17 08:08 Hudson 5-325 PO 1 each Q4HR PRN Administration MILD TO MODERATE Pain Hydrocodone Bitart/Acetaminophen 2 each 12/01/17 12:20 12/13/17 15:08 Hudson 5-325 PO 2 each Q4HR PRN Administration MODERATE TO SEVERE Pain Albuterol/Ipratropium 3 ml 11/26/17 17:53 12/08/17 05:16 Duoneb 0.5 Mg-3 Mg/3 Ml Soln INHALATION 3 ml RT-Q2H PRN Administration Shortness Of Breath Or Wheezing Albuterol/Ipratropium 3 ml 12/03/17 08:00 12/13/17 16:02 Duoneb 0.5 Mg-3 Mg/3 Ml Soln INHALATION Not Given RT-QID [facility] Amiodarone HCl 200 mg 12/11/17 20:00 12/13/17 09:12 Cordarone PO 200 mg BID@0800,2000 [facility] Administration Aspirin 81 mg 11/26/17 10:15 12/13/17 09:13 Aspirin PO 81 mg DAILY [facility] Administration Atorvastatin Calcium 40 mg 11/26/17 09:00 12/13/17 09:13 Lipitor PO 40 mg DAILY [facility] Administration Benzocaine/Menthol 1 each 11/25/17 19:03 Cepacol Lozenge MUCOUS MEM Q2H PRN Sore Throat Bisacodyl 10 mg 11/26/17 17:52 12/12/17 17:45 Dulcolax RECTAL 10 mg DAILY PRN Administration Constipation Budesonide 1 mg 12/01/17 20:00 12/13/17 07:46 Pulmicort INHALATION 1 mg RT-BID [facility] Administration Escitalopram Oxalate 10 mg 12/07/17 21:00 12/12/17 20:16 Lexapro PO 10 mg HS [facility] Administration Heparin Sodium (Porcine) 5,000 unit 12/10/17 16:00 12/13/17 09:14 Heparin SQ 5,000 unit Q8HR [facility] Administration Sodium Chloride 1,000 mls @ 20 mls/hr 12/06/17 10:45 12/13/17 09:49 Saline 0.9% IV 20 mls/hr .Q24H [facility] Administration Meropenem 1 gm/ Sodium 100 mls @ 100 mls/hr 12/09/17 22:00 12/13/17 09:46 Chloride IVPB 100 mls/hr Q8HR [facility] Administration Vancomycin HCl 1,750 mg/ 250 mls @ 125 mls/hr 12/13/17 14:00 12/13/17 14:15 Sodium Chloride IVPB 125 mls/hr Q12HR@0000,1200 [facility] Administration Insulin Aspart 0 unit 12/02/17 21:00 12/13/17 12:34 Novolog SQ Not Given ACHS [facility] Protocol Lactobacillus Acidoph/Bulgaricus 1 each 12/13/17 16:00 Lactinex PO TID [facility] Magnesium Hydroxide 2,400 mg 11/26/17 17:53 Milk Of Magnesia PO BID PRN Constipation Metoprolol Tartrate 50 mg 12/11/17 22:00 12/13/17 09:13 Lopressor PO 50 mg BID@1000,2200 [facility] Administration Miscellaneous Information 1 each 11/25/17 19:03 Magnesium Per Protocol MISCELLANE DAILY PRN Per Protocol Protocol Miscellaneous Information 1 each 11/25/17 19:03 Phosphorus Per Protocol MISCELLANE DAILY PRN Per Protocol Protocol Miscellaneous Information 1 each 11/25/17 19:03 Potassium Per Protocol MISCELLANE DAILY PRN Per Protocol Protocol Ondansetron HCl 4 mg 11/25/17 19:03 Zofran IVP Q6HR PRN Nausea And Vomiting Pantoprazole Sodium 40 mg 12/05/17 07:30 12/13/17 09:13 Protonix PO 40 mg AC-BRKFST [facility] Administration Senna/Docusate Sodium 2 each 11/26/17 21:00 12/12/17 20:16 Senokot-S PO 2 each HS [facility] Administration Sodium Chloride 10 ml 11/25/17 21:00 12/13/17 09:49 Saline Flush IV 10 ml BID [facility] Administration 12/14/17 maintained on Merrem and vancomycin per infectious disease .remains BiPAP dependent. Chest x-ray reporting persistent significant left lung collapse with minimal improvement. Scheduled for bronchoscopy this afternoon. INR 2.1, receiving FFP. No diarrhea today. Telemetry atrial fibrillation/ flutter, heart rate 110s to 120s. 12/15/2017 developed worsened respiratory distress despite BiPAP, diuretics, antiarrhythmics, intubated last night. Received 2 more units of FFP this morning, underwent bronchoscopy this morning; mucous plug discovered in the left lower lobe. Pleural Cultures pending. Maintained on FiO2 45%/+5 of PEEP. Continues on IV antibiotics. Currently on 2 mics of Levophed and diprovan drips. Atrial tachycardia, heart rate in the 130s. Amiodarone discontinued as per cardiology. Developed increased bleeding from wound VAC with turning during bath-Anticoagulation placed on hold. Afebrile. 12/16/17 remains vent dependent, FiO2 40%/+5 of PEEP. Sedated on Diprovan. Requiring low-dose of Levophed. Marginal urine output, received albumin last night. Tachycardia resolved, sinus rhythm per telemetry. Wound VAC dressing changed today, serosanguineous drainage. Bronchoscopy yesterday, cultures pending. Blood sugars controlled. 12/17/2017 today weaning trials of pressure support in increments of 3 hours , resting at night, FiO2 40%/+5 of PEEP. Chest x-ray reporting improvement. Currently on Levophed. Tolerating tube feeds at goal with minimal to no residual. Maintained on IV antibiotics as per infectious disease. Telemetry sinus rhythm. 12/20/17 remains vent dependent FiO2 40%/PEEP of 5. Yesterday vent weaning during the day hours, tolerated well. Wound VAC changed yesterday. Scheduled for sternal flap repair tomorrow. Maintained on IV antibiotics. T-max 99.4. Last night returned into rapid atrial flutter, Currently sinus rhythm. 12/21/2017 remains vent dependent. Telemetry sinus rhythm. Tube feeds on hold. Scheduled for sternal flap repair today. 12/22/2017 underwent flap repair/grafting yesterday with plastic surgeon. Pain controlled. Extubated this morning, maintained on BiPAP. Telemetry sinus rhythm. Albumin remains at 2.2, receiving albumin. 12/23/17 .Patient respiratory arrested while Dobbhoff attempting to be placed, returned into atrial fibrillation with RVR. Reintubated, converted back into sinus rhythm. Midsternal dressing being changed at bedside by cardiothoracic surgery. Trach and PEG being discussed as per pulmonary. 12/24/17 scheduled for tracheostomy this morning. Chest x-ray reporting progressive CHF change with bilateral effusions possible underlying pneumonia, ET tube 1 cm above osvaldo. Telemetry sinus rhythm. Levophed currently on hold. 12/27/2017 Dobbhoff recently placed, developed nausea vomiting throughout the night. Abdomen distended, tympanic.Tube feeds placed on hold, flat plate of abdomen pending. PEG tube being discussed. Passing loose stools. Denies abdominal pain .Telemetry sinus rhythm. Maintained on FiO2 35%/+ of PEEP. Tolerated CPAP for 3 hours yesterday. Yesterday and today patient received Lasix IV push, diuresed well with 24-hour I&O reflecting a negative fluid balance. Chest x-ray reporting similar findings. T-max 99.2. 12/28/2017 maintained on IV antibiotics, significant wound drainage. Afebrile. remains vent dependent, FiO2 35%/+5 of PEEP. Chest x-ray stable. Yesterday abdominal x-ray reported possible underlying ileus, obstruction. Dobbhoff tube feeds placed on hold. Follow-up Abdominal x-ray this morning reporting markedly dilated small bowel loops ,severe postoperative ileus with partial obstruction. Abdomen distended. Weaning parameters suboptimal ,no weaning trials today as per pulmonary. Hemoglobin 7.anasarca, weeping .receiving Albumin , Lasix IV push 1. 12/29/17 maintained on vancomycin, Merrem. abdomen less distended today.small bowel movements 2 yesterday, on lactulose. TPN to be initiated today. Wound VAC /dressing changed this a.m.remains vent dependent and 35% FiO2/+5 of PEEP.pressure-support 2hr.hemoglobin 7.2.evaluated by general surgery with recommendations of no abdominal surgical intervention at this time. 12/30/2017.returned into atrial flutter last night, heart rates up to the 130s, currently heart rate in the 120s. Continues on Beta krunal,amiodarone and Cardizem.tolerating TPN.hemoglobin 7.1, potassium 3.1, being supplemented by ICU replacement protocol.afebrile.Dobhoff with tube feeds at low rate initiated. 12/31/17 remains vent dependent, FiO2 35%/+5 of PEEP. Telemetry atrial fib/ aflutter heart rates in the 140s. TPN infusing. Failed Dobhoff trial this morning, Flat plate reporting gas-filled loops of bowel without evident pneumoperitoneum. Abdomen distended, Dobbhoff discontinued, NG tube placed. Passing flatus. 01/04/2018 remains vent dependent, tolerated SIMV 12 hours yesterday.currently on 35% FiO2/+5 of PEEP. PEG tube scheduled for tomorrow. Telemetry A. fib flutter 120s with repeat cardioversion being discussed once patient therapeutic. Select specialty Possibly early next week. 01/05/18 successful PEG tube placement today. Telemetry sinus rhythm to atrial flutter, rate better controlled currently in the 110s. Potential cardioversion being discussed. Patient stated at the bedside with 4 person assist. Remains vent dependent on 35% FiO2/+5 of PEEP. Chest x-ray reporting left perihilar infiltrate, left lower lobe atelectasis. Objective - Vital Signs Vital signs: Vital Signs Temp 98.2 F 01/05/18 12:00 Pulse 116 H 01/05/18 16:30 Resp 20 01/05/18 16:00 BP 106/58 01/04/18 08:59 Pulse Ox 99 01/05/18 16:00 Intake & Output 01/04/18 01/05/18 01/05/18 18:59 06:59 18:59 Intake Total 1358 708 414 Output Total 860 790 500 Balance 498 -82 -86 Weight 100.6 kg 100.6 kg Intake: IV 433 594 354 Dextrose 5%-0.45% NaCl 1, 100 120 80 000 ml @ 10 mls/hr IV . Q24H [facility] Rx#:[id number] Meropenem 1 gm In Sodium 100 200 200 Chloride 0.9% 100 ml @ 200 mls/hr IVPB Q8HR [facility] Rx#:[id number] Pressure Bag 33 18 24 Vancomycin 1,500 mg In 250 Sodium Chloride 0.9% 250 ml @ 125 mls/hr IVPB Q36H [facility] Rx#:[id number] potassium 200 6 Oral 60 Tube Feeding 835 114 Other 90 Output: Drainage 250 400 200 Right Abdomen 250 400 200 Urine 610 390 300 Other: Voiding Method Indwelling Catheter Indwelling Catheter Indwelling Catheter ABP, PAP, CO, CI - Last Documented Arterial Blood Pressure 113/66 Pulmonary Artery Pressure 38/33 Cardiac Output 5.8 Cardiac Index 2.9 - Exam PHYSICAL EXAM: VITAL SIGNS: As above GENERAL: Sitting up in bed, on mechanical ventilation HEENT: Conjunctivae normal. eyes normal. NECK: No JVD. Tracheostomy tube present CARDIOVASCULAR: S1, S2 muffled , tachycardic,no gallops, no murmurs RESPIRATION: Breath sounds diminished in the bases,coarse. Sternal wound VAC dressing present. ABDOMEN: Softer, nondistended, right-sided abdominal dressing clean dry and intact with HENRI- serous drainage, PEG tube present, positive bowel sounds Extremities: Improving edema PSYCHIATRY:/NERVOUS SYSTEM: Unable to assess as patient on mechanical ventilation, Skin: Midsternal dressing clean dry and intact, right medial buttock & right buttock with barrier Cream applied, right wrist area ulcerations-dressing clean dry and intact.posterior scalp with pressure ulceration -scabbed ,resting on a offload- cushion - Labs CBC & Chem 7: 01/05/18 05:00 01/05/18 05:00 Labs: Abnormal Lab Results - Last 24 Hours (Table) 01/04/18 01/05/18 01/05/18 Range/Units 23:52 05:00 05:00 WBC 12.5 H (3.8-10.6) k/uL RBC 3.17 L (3.80-5.40) m/uL Hgb 8.3 L (11.4-16.0) gm/dL Hct 27.3 L (34.0-46.0) % MCHC 30.3 L (31.0-37.0) g/dL RDW 20.3 H (11.5-15.5) % Neutrophils # 10.7 H (1.3-7.7) k/uL Lymphocytes # 0.8 L (1.0-4.8) k/uL ABG pH (7.35-7.45) ABG pO2 (83-108) mmHg ABG HCO3 (21-25) mmol/L ABG Total CO2 (19-24) mmol/L ABG O2 Saturation (94-97) % BUN 43 H (7-17) mg/dL POC Glucose (mg/dL) 126 H (75-99) mg/dL 01/05/18 01/05/18 Range/Units 07:39 10:40 WBC (3.8-10.6) k/uL RBC (3.80-5.40) m/uL Hgb (11.4-16.0) gm/dL Hct (34.0-46.0) % MCHC (31.0-37.0) g/dL RDW (11.5-15.5) % Neutrophils # (1.3-7.7) k/uL Lymphocytes # (1.0-4.8) k/uL ABG pH 7.47 H (7.35-7.45) ABG pO2 115 H (83-108) mmHg ABG HCO3 30 H (21-25) mmol/L ABG Total CO2 31 H (19-24) mmol/L ABG O2 Saturation 99.9 H (94-97) % BUN (7-17) mg/dL POC Glucose (mg/dL) 111 H (75-99) mg/dL Microbiology - Last 24 Hours (Table) 01/02/18 06:00 Stool Culture - Final Stool Assessment and Plan Assessment: 1. Status post CABG with mitral valve replacement 2. Acute blood loss anemia with massive blood transfusions postoperatively, in a patient with history of GI bleed,multifactorial 3. Hypertension 4. Left subclavian stenosis 5. Proximal atrial fibrillation/flutter status post cardioversion with recurrence of atrial fibrillation 6. Acute Hypoxic respiratory failure, Re intubated x2. Status post tracheostomy 7. Obesity, BMI 41.6 8. S/P PICC line placement 9. 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 Acute UTI Serratia marcescens, E. coli 11. Bilateral pleural effusions, improved with diuretics. Possible aspiration pneumonia, possible fluid overload. 12. Sternal wound debridement, culture growing Serratia marcescens, status post wound VAC. Status post sternal flap grafting. 13. Pressure ulceration of back and buttocks, stage III 14. Diarrhea, ruling out C. difficile colitis. 15. Status post bronchoscopy with left lower lobe mucous plug discovered 16. ileus, improving 17. TPN 18. Status post PEG tube placement Plan: Continue on current medication regime , amiodarone, metoprolol ,reglan, monitoring and symptomatic treatment. Repeat cardioversion pending. strict aspiration precautions. Maintain IV antibiotics, nebulized bronchodilators, steroids. selective care specialty possibly later this week or early next week. Prognosis guarded given multiple complex medical issues. The impression and plan of care has been dictated as directed. : I performed a history and examination of this patient, discussed the same with the dictator. I agree with the dictator's note ,documented as a scribe. Any additional findings or plans will be noted.
[2018-01-05] MEDS ORDERED: WARFARIN 5 MG TAB PO ONE (18:00)
[2018-01-05 18:18] LABS: Glucose,Whole Blood 84 mg/dL (75-99)
[2018-01-05] MEDS: ESCITALOPRAM 10 MG TAB PO SCH (21:22)
[2018-01-05] MEDS: SENNOSIDES-DOCUSATE SODIUM 1 EACH TAB PO SCH (21:25)
--- NOTE | 2018-01-05 21:33 | P.PN ---
Subjective Progress Note Date: 01/05/18 Principal diagnosis: Sternal wound dehiscence Pleasant 67-year-old female who has an extensive past medical history who is now 14 days postoperative from her open heart procedure it which point in time a mitral valve placement occurred, reverse saphenous vein coronary artery bypass grafting 1 to obtuse marginal, Maze procedure and ligation of the left atrial appendage all occurred interoperatively left ventricular wall tear occurred and was repaired. The patient has a known history of multiple medical troubles before her surgery that included her obesity, COPD and marked deconditioning. Patient has had difficulties recently that included urinary tract infection with E. coli and Serratia and has been treated with intravenous antibiotic therapy with Zosyn. She was having some improvement but then developed dehiscence of her sternal wound and there are plans for surgical debridement tomorrow wound culture showing gram-negative bacilli and with at the infectious diseases consultation was requested. The patient continues to have significant respiratory difficulties and is currently on BiPAP for support. Postoperatively the patient was hemodynamically unstable which made even turning of the patient not possible which has resulted in unavoidable areas of skin breakdown, that are now treatable given her improvement 12/10/2017 reveals the patient to be postoperative from the sternal wound debridement. The surgical note as well as discussion with the surgical team reveals evidence of poor bone quality and all of the sternal wires had pulled through her bony areas. Negative pressure therapy is in place. She is tolerating this well. Plastic surgery consult has been requested for reconstruction of her chest in the near future. Gram-negative bacilli growing from the sternal wound. She is quite comfortable after procedure, chest tube was placed of the left cavity and this is improved some left lung function and she seems less short of breath. The daughter is present and her questions were answered. 12/11/2017 reveals the patient to have had some respiratory distress today and is back on BiPAP at this time. She relates that her pain is under much significant control. Been no other new acute complaints are being made. 12/13/2017 the patient remains in the ICU she is currently on BiPAP but relates that she is quite comfortable. We will work with the nursing staff to change her VAC dressing at this time. await the plastic surgery timeline. 12/15/2017 reveals the patient to remain in intensive care unit, her status has worsened and that she developed flash pulmonary edema and respiratory failure requiring reintubation sedation mechanical ventilation. She underwent bronchoscopy today for removal of mucous plugs and to help with the collapsed left lower lobe. The patient has require some vasopressor support but is more stable this afternoon than earlier. She is sedated and comfortable. She has significant decline of hemoglobin is 7.6. Anticoagulation was held. Is being closely monitored by surgery and they await the plastic surgery intervention. 12/16/2017 cases briefly discussed with the cardiothoracic nurse practitioner in that the wound VAC is being changed today. It is unchanged with no difficulties. No further bleeding is noted. Plastic surgery evaluation apparently will occur tomorrow so the surgical plan can be devised. 12/20/2017 since last visit current thoracic has again change the wound VAC without difficulties. She tolerated it well. She remains on the ventilator at this point in time, does not appear to have any plans for weaning because she will have her plastic closure over open chest tomorrow. She's been hemodynamically stable with intermittent atrial flutter. No significant changes of oxygen requirements, drainage from the wound VAC is minimal as is drainage from her chest tube. 12/21/2017 patient is status post the partial plastic closure of her sternal wound. Complete cardiac coverage occurred but only partial closure was possible. Oxygen requirements are improving postoperative and is being closely watched for any further blood loss anemia. 12/23/2017 reveals the patient to be extubated on BiPAP. She is comfortable with her pain level is about a 2. Shortness of breath is not severe. She is unable to eat and a Dobbhoff will be placed a bit later today to help her with nutritional status to help her recovery. The current situation is discussed with the cardiothoracic surgeon team 12/24/2017 reveals evidence of the changes status in that she has now had a tracheostomy applied due to her chronic respiratory failure. Cardiothoracic surgery has changed the dressing today. Patient is comfortable after her surgery. Denies new acute discomforts. 12/25/2017 reveals that the patient is doing well with her tracheostomy. She is on 35% FiO2 with excellent saturations. The patient relates that she is comfortable her pain level is no more than a 4. She is receiving feedings via the Dobbhoff is tolerating that well but is having a few soft stools without swapnil diarrhea. 12/27/2017 patient remained stable after tracheostomy. With pain level is no more than a 2 at this point in time. Feedings via the Dobbhoff are going well. The wound VAC dressing was changed today without difficulties. Leukocytosis is improving. No hypotension. 12/28/2017. Overall the patient has been stable and that her pulmonary status without acute change. Doing well with the tracheostomy. Patient however developed significant abdominal distention with a tympanic abdomen. Abdominal x -ray revealed evidence of ileus. She's been seen by general surgery and they will determine if she needs an NG tube based on x-rays. She apparently is more comfortable this evening that she was earlier in the day. Nursing staff relates no fevers. 12/29/2017 patient is stable. Not having new acute difficulties. Is noted did have a pressure ulceration to the posterior aspect of the scalp that is being treated with a fall offloading cushion. Patient is actually quite comfortable today. Her ileus is starting to improve. Surgery he has no plans for surgical intervention into the abdomen. Is tolerating TPN. 12/30/2017 the patient is stable. She is doing well with her physical therapy and her antibiotic therapy for the sternal wound dehiscence. Ileus is improving and tolerating her TPN well. 12/31/2017 patient has been seen by the cardiothoracic team and wound VAC was changed without difficulty. She is having significant ongoing atrial flutter and has been seen by cardiology and they await medication effect for spontaneous transition back to a normal sinus mechanism that she has done the past. Patient is mildly short of breath but does well on the current ventilator settings. Her pain level is no more than a 2 and she is doing well with her physical therapy. NG tube was placed and this has given her relief of her distention and discomfort from her ileus 01/03/2018 patient is comfortable today. She has an IMV ventilation and other than some tiredness she relates she is doing well. Her pain level is 0. No difficulty with the recent dressing changes. Tolerating tube feeding at this point in time without abdominal pain. She is tolerating tube feeds well at this time. 01/04/2018 patient is comfortable doing well tolerated CPAP for 8 hours a day. We'll have her PEG tube placed tomorrow which will then allow the next set of changes hopefully with anticoagulation, cardioversion and then placement to vent facility. 01/05/2018 patient is had her PEG tube placed today. Other than some pain at that site she's doing relatively well. Spirits are good and she looks forward to transitioning to a new facility for chronic weaning and eventual removal of her trach. His related that today there was a moment of standing with multiple person assist. Objective - Vital Signs Vital signs: Vital Signs Temp 98.2 F 01/05/18 20:00 Pulse 118 H 01/05/18 21:00 Resp 20 01/05/18 21:00 BP 106/58 01/04/18 08:59 Pulse Ox 99 01/05/18 21:00 Intake & Output 01/05/18 01/05/18 01/06/18 06:59 18:59 06:59 Intake Total 708 453 39 Output Total 790 605 235 Balance -82 -152 -196 Weight 100.6 kg 100.6 kg Intake: IV 594 393 39 Dextrose 5%-0.45% NaCl 1, 120 110 30 000 ml @ 10 mls/hr IV . Q24H [facility] Rx#:[id number] Meropenem 1 gm In Sodium 200 200 Chloride 0.9% 100 ml @ 200 mls/hr IVPB Q8HR [facility] Rx#:[id number] Pressure Bag 18 33 9 Vancomycin 1,500 mg In 250 Sodium Chloride 0.9% 250 ml @ 125 mls/hr IVPB Q36H [facility] Rx#:[id number] potassium 6 Oral 60 Tube Feeding 114 Output: Drainage 400 200 150 Right Abdomen 400 200 150 Urine 390 405 85 Other: Voiding Method Indwelling Catheter Indwelling Catheter Indwelling Catheter ABP, PAP, CO, CI - Last Documented Arterial Blood Pressure 98/57 Pulmonary Artery Pressure 38/33 Cardiac Output 5.8 Cardiac Index 2.9 - Exam Obese 67-year-old woman who is now extubated on BiPAP HEENT: Anicteric conjunctiva are pink and moist nasal mucosa grossly intact without significant lesions, there is no thrush. Oral mucosa is dry but no swapnil lesions could be seen, NG tube is now placed. Neck: The neck is supple without significant lymphadenopathy or thyromegaly. Tracheostomy intact without bleeding there is evidence of the posterior scalp lesion please refer to the nursing photography. Lungs: Symmetrical air entry is noted. There is scattered crackles but no swapnil bronchial sounds Heart: Irregular with an audible S1 and S2 soft S4 no audible murmur no click or rub Chest: The patient's mid sternotomy incision is now covered with a postoperative dressing from the plastic closure which is reported to be a partial flap closure Abdomen: Obese, Positive bowel sounds soft and nontender without palpable masses or organomegaly. There was no guarding or rebound. Distention is slightly improved with initiation of the nasogastric tube and suction. Symptomatically she feels better Extremities: The upper and lower extremities have evidence of edema harvest site is intact there is some bruising that is noted especially on the left groin area. IV sites are intact. Skin: With the nursing staff the buttocks pressure ulcerations are evaluated which are showing improvement. The ulceration on the skin fold above her buttocks is also evaluated and appears to be improving. Also improvement of the ulceration to the right wrist area. Skin however is now having some blistering due to her hypoalbuminemia and excessive volume. Sternal wound dressing is dry and intact. Neuro: Comfortable at this time pain level 5 after the PEG tube placement, no acute changes neurologically - Labs CBC & Chem 7: 01/05/18 05:00 01/05/18 05:00 Labs: Abnormal Lab Results - Last 24 Hours (Table) 01/04/18 01/05/18 01/05/18 Range/Units 23:52 05:00 05:00 WBC 12.5 H (3.8-10.6) k/uL RBC 3.17 L (3.80-5.40) m/uL Hgb 8.3 L (11.4-16.0) gm/dL Hct 27.3 L (34.0-46.0) % MCHC 30.3 L (31.0-37.0) g/dL RDW 20.3 H (11.5-15.5) % Neutrophils # 10.7 H (1.3-7.7) k/uL Lymphocytes # 0.8 L (1.0-4.8) k/uL ABG pH (7.35-7.45) ABG pO2 (83-108) mmHg ABG HCO3 (21-25) mmol/L ABG Total CO2 (19-24) mmol/L ABG O2 Saturation (94-97) % BUN 43 H (7-17) mg/dL POC Glucose (mg/dL) 126 H (75-99) mg/dL 01/05/18 01/05/18 Range/Units 07:39 10:40 WBC (3.8-10.6) k/uL RBC (3.80-5.40) m/uL Hgb (11.4-16.0) gm/dL Hct (34.0-46.0) % MCHC (31.0-37.0) g/dL RDW (11.5-15.5) % Neutrophils # (1.3-7.7) k/uL Lymphocytes # (1.0-4.8) k/uL ABG pH 7.47 H (7.35-7.45) ABG pO2 115 H (83-108) mmHg ABG HCO3 30 H (21-25) mmol/L ABG Total CO2 31 H (19-24) mmol/L ABG O2 Saturation 99.9 H (94-97) % BUN (7-17) mg/dL POC Glucose (mg/dL) 111 H (75-99) mg/dL Microbiology - Last 24 Hours (Table) 01/02/18 06:00 Stool Culture - Final Stool Laboratory Results WBC 12.5 k/uL (3.8-10.6) H 01/05/18 05:00 RBC 3.17 m/uL (3.80-5.40) L 01/05/18 05:00 Hgb 8.3 gm/dL (11.4-16.0) L 01/05/18 05:00 Hct 27.3 % (34.0-46.0) L 01/05/18 05:00 MCV 86.3 fL (80.0-100.0) 01/05/18 05:00 MCH 26.2 pg (25.0-35.0) 01/05/18 05:00 MCHC 30.3 g/dL (31.0-37.0) L 01/05/18 05:00 RDW 20.3 % (11.5-15.5) H 01/05/18 05:00 Plt Count 346 k/uL (150-450) 01/05/18 05:00 Neutrophils % 86 % 01/05/18 05:00 Neutrophils % (Manual) 98 % 12/05/17 04:25 Lymphocytes % 6 % 01/05/18 05:00 Lymphocytes % (Manual) 1 % 12/05/17 04:25 Monocytes % 5 % 01/05/18 05:00 Monocytes % (Manual) 1 % 12/05/17 04:25 Eosinophils % 2 % 01/05/18 05:00 Basophils % 0 % 01/05/18 05:00 Myelocytes % 1 % 12/03/17 04:15 Neutrophils # 10.7 k/uL (1.3-7.7) H 01/05/18 05:00 Neutrophils # (Manual) 26.95 k/uL (1.3-7.7) H 12/05/17 04:25 Lymphocytes # 0.8 k/uL (1.0-4.8) L 01/05/18 05:00 Lymphocytes # (Manual) 0.28 k/uL (1.0-4.8) L 12/05/17 04:25 Monocytes # 0.6 k/uL (0-1.0) 01/05/18 05:00 Monocytes # (Manual) 0.28 k/uL (0-1.0) 12/05/17 04:25 Eosinophils # 0.3 k/uL (0-0.7) 01/05/18 05:00 Basophils # 0.0 k/uL (0-0.2) 01/05/18 05:00 Myelocytes # (Manual) 0.17 k/uL (0) H 12/03/17 04:15 Nucleated RBCs 0 /100 WBC (0-0) 12/05/17 04:25 Manual Slide Review Performed 12/05/17 04:25 Polychromasia Present 12/03/17 04:15 Hypochromasia Marked 01/05/18 05:00 Poikilocytosis Slight 01/04/18 04:33 Anisocytosis Moderate 01/05/18 05:00 Microcytosis Slight 01/05/18 05:00 Target Cells Present 12/03/17 04:15 PT 10.8 sec (9.0-12.0) 12/21/17 04:50 INR 1.1 (<1.2) 12/21/17 04:50 APTT 23.9 sec (22.0-30.0) 12/21/17 04:50 Fibrinogen 334 mg/dL (200-500) 11/26/17 04:22 Sample Site [place] 01/05/18 07:39 ABG pH 7.47 (7.35-7.45) H 01/05/18 07:39 ABG pCO2 41 mmHg (35-45) 01/05/18 07:39 ABG pO2 115 mmHg (83-108) H 01/05/18 07:39 ABG HCO3 30 mmol/L (21-25) H 01/05/18 07:39 ABG Total CO2 31 mmol/L (19-24) H 01/05/18 07:39 ABG O2 Saturation 99.9 % (94-97) H 01/05/18 07:39 ABG Base Excess 6.3 mmol/L 01/05/18 07:39 ABG Hematocrit 24 % (34.0-46.0) L 11/25/17 17:37 Robbi Test Yes 01/05/18 07:39 ABG Sodium 144 mmol/L (135-146) 11/25/17 17:37 ABG Potassium 3.8 mmol/L (3.4-4.5) 11/25/17 17:37 ABG Ionized Calcium 4.0 mg/dL (4.5-5.3) L 11/25/17 17:37 ABG Glucose 139 mg/dL (75-99) H 11/25/17 17:37 ABG Lactic Acid 2.8 mmol/L (0.5-1.6) H* 11/25/17 17:37 Hemoglobin 7.8 gm/dL (11.4-16.0) L 11/25/17 17:37 FiO2 35 % 01/05/18 07:39 Sodium 137 mmol/L (137-145) 01/05/18 05:00 Potassium 4.0 mmol/L (3.5-5.1) 01/05/18 05:00 Chloride 100 mmol/L (98-107) 01/05/18 05:00 Carbon Dioxide 30 mmol/L (22-30) 01/05/18 05:00 Anion Gap 7 mmol/L 01/05/18 05:00 BUN 43 mg/dL (7-17) H 01/05/18 05:00 Creatinine 0.80 mg/dL (0.52-1.04) 01/05/18 05:00 Est GFR (MDRD) Af Amer >60 (>60 ml/min/1.73 sqM) 12/07/17 04:00 Est GFR (MDRD) Non-Af >60 (>60 ml/min/1.73 sqM) 12/07/17 04:00 Est GFR (CKD-EPI)AfAm 88 (>60 ml/min/1.73 sqM) 01/05/18 05:00 Est GFR (CKD-EPI)NonAf 77 (>60 ml/min/1.73 sqM) 01/05/18 05:00 Glucose 99 mg/dL (74-99) 01/05/18 05:00 POC Glucose (mg/dL) 84 mg/dL (75-99) 01/05/18 18:16 POC Glu [place] [employer] ID Jessica Yun 01/05/18 18:16 Calcium 8.6 mg/dL (8.4-10.2) 01/05/18 05:00 Ionized Calcium Bruce 4.7 mg/dL (4.5-5.3) 12/11/17 15:45 Phosphorus 3.9 mg/dL (2.5-4.5) 01/05/18 05:00 Magnesium 2.0 mg/dL (1.6-2.3) 01/05/18 05:00 Total Bilirubin 0.4 mg/dL (0.2-1.3) 12/31/17 04:30 AST 36 U/L (14-36) 12/31/17 04:30 ALT 34 U/L (9-52) 12/31/17 04:30 Alkaline Phosphatase 88 U/L (38-126) 12/31/17 04:30 Total Protein 6.2 g/dL (6.3-8.2) L 12/31/17 04:30 Albumin 3.1 g/dL (3.5-5.0) L 12/31/17 04:30 Prealbumin 7.0 mg/dL (18.0-42.0) L 12/27/17 05:10 Triglycerides 130 mg/dL (<150) 12/29/17 11:45 Cholesterol 80 mg/dL (<200) 12/29/17 11:45 LDL Cholesterol, Calc 34 mg/dL (0-99) 12/29/17 11:45 HDL Cholesterol 20 mg/dL (40-60) L 12/29/17 11:45 Arterial Blood Potassium 3.8 mmol/L (3.4-4.5) 11/25/17 17:37 Arterial Blood Glucose 139 mg/dL (75-99) H 11/25/17 17:37 Urine Color Yellow 12/04/17 10:00 Urine Appearance Cloudy (Clear) H 12/04/17 10:00 Urine pH 5.5 (5.0-8.0) 12/04/17 10:00 Ur Specific [place] 1.015 (1.001-1.035) 12/04/17 10:00 Urine Protein Trace (Negative) H 12/04/17 10:00 Urine Glucose (UA) Negative (Negative) 12/04/17 10:00 Urine Ketones Negative (Negative) 12/04/17 10:00 Urine Blood Negative (Negative) 12/04/17 10:00 Urine Nitrite Negative (Negative) 12/04/17 10:00 Urine Bilirubin Negative (Negative) 12/04/17 10:00 Urine Urobilinogen <2.0 mg/dL (<2.0) 12/04/17 10:00 Ur Leukocyte Esterase Negative (Negative) 12/04/17 10:00 Urine RBC 7 /hpf (0-5) H 12/04/17 10:00 Urine WBC 1 /hpf (0-5) 12/04/17 10:00 Ur Squamous Epith Cells 8 /hpf (0-4) H 12/04/17 10:00 Urine Bacteria Occasional /hpf (None) H 12/04/17 10:00 Urine Mucus Rare /hpf (None) H 12/04/17 10:00 Fluid Source Bronchial Wash 12/15/17 10:40 Fluid Color Colorless 12/15/17 10:40 Fluid Appearance Cloudy 12/15/17 10:40 Fluid RBC 150 /uL 12/15/17 10:40 Fluid Nucleated Cells 6900 /uL 12/15/17 10:40 Fluid Polynuclear WBCs 95 % 12/15/17 10:40 Fluid Mononuclear WBCs 5 % 12/15/17 10:40 Stl Cryptosporidium Ag Negative (Negative) 01/02/18 06:00 Stool Giardia Source Stool 01/02/18 06:00 Stl Giardia Antigen Negative (Negative) 01/02/18 06:00 Vancomycin Trough 22.9 ug/mL 01/01/18 04:45 Random Vancomycin 21.2 ug/mL 12/16/17 04:15 Heparin-Ind Plt Ab Scrn 0.231 OD (<0.4) 11/29/17 04:50 C. difficile (EIA) Intrp Negative (Negative) 01/02/18 06:00 Virus Source See Below 12/15/17 10:40 Viral Test See Below 12/15/17 10:40 Virus Analysis Interp See Below 12/15/17 10:40 Blood Type A Positive 01/05/18 08:30 Blood Type Recheck No 01/05/18 08:30 Antibody Screen NEGATIVE 01/05/18 08:30 Crossmatch See Detail 12/14/17 10:10 Transfuse Cryo [id number] 11/26/17 00:39 Transfuse Plasma 12/15/2017 12/15/17 05:51 Transfuse Platelets [id number] 11/25/17 14:55 Spec Expiration Date 01/08/2018 - 232901/05/18 08:30 Microbiology 01/02/18 06:00 Stool Stool Culture - Final 12/10/17 10:40 Chest Fungal Culture - Preliminary 12/10/17 10:45 Chest Fungal Culture - Preliminary 12/10/17 10:50 Chest Fungal Culture - Preliminary 01/02/18 06:00 Stool Stool for WBCs - Final 12/15/17 10:40 Bronchial Washings - Left Acid Fast Bacilli Smear - Final 12/15/17 10:40 Bronchial Washings - Left Acid Fast Bacilli Culture - Preliminary 12/10/17 10:50 Chest Acid Fast Bacilli Smear - Final 12/10/17 10:50 Chest Acid Fast Bacilli Culture - Preliminary 12/10/17 10:45 Chest Acid Fast Bacilli Smear - Final 12/10/17 10:45 Chest Acid Fast Bacilli Culture - Preliminary 12/24/17 11:30 Catheter Tip Catheter Tip Culture - Final 12/15/17 10:40 Bronchial Washings - Left Fungal Culture - Preliminary Rachana albicans 12/15/17 10:40 Bronchial Washings - Left Gram Stain - Final 12/15/17 10:40 Bronchial Washings - Left Bronchial Washings Culture - Final Rachana albicans 12/14/17 21:30 Sputum Gram Stain - Final 12/14/17 21:30 Sputum Sputum Culture - Final Rachana albicans 12/10/17 10:50 Chest Anaerobic Culture - Final 12/10/17 10:40 Chest Anaerobic Culture - Final 12/10/17 10:45 Chest Anaerobic Culture - Final 12/13/17 05:27 Urine,Catheterized Urine Culture - Final 12/10/17 10:40 Chest Gram Stain - Final 12/10/17 10:40 Chest Wound Culture - Final Serratia marcescens 12/10/17 10:45 Chest Gram Stain - Final 12/10/17 10:45 Chest Tissue Culture - Final Serratia marcescens 12/10/17 10:50 Chest Gram Stain - Final 12/10/17 10:50 Chest Tissue Culture - Final Serratia marcescens 12/07/17 15:40 Chest Gram Stain - Final 12/07/17 15:40 Chest Wound Culture - Final Serratia marcescens 12/04/17 10:00 Urine,Voided Urine Culture - Final Escherichia coli Serratia marcescens 11/26/17 04:00 Sputum Gram Stain - Final 11/26/17 04:00 Sputum Sputum Culture - Final Assessment and Plan (1) Severe mitral regurgitation Current Visit: Yes Status: Chronic Code(s): I34.0 - NONRHEUMATIC MITRAL ( VALVE) INSUFFICIENCY SNOMED Code(s): 58538446 (2) CAD (coronary artery disease) Current Visit: Yes Status: Chronic Code(s): I25.10 - ATHSCL HEART DISEASE OF [place] CORONARY ARTERY W/O ANG PCTRS SNOMED Code(s): 34238141 (3) Acute blood loss as cause of postoperative anemia Current Visit: Yes Status: Acute Code(s): D62 - ACUTE POSTHEMORRHAGIC ANEMIA SNOMED Code(s): 23419602796080303 (4) Pressure ulcer of contiguous region involving back and buttock, stage 3 Current Visit: Yes Status: Acute Code(s): L89.43 - PRESSR ULCER OF CONTIG SITE OF BACK, BUTTOCK AND HIP, STG 3 SNOMED Code(s): 246016464 (5) Sternal wound dehiscence Narrative/Plan: 67-year-old woman presents to Hospital for treatment of her severe mitral irritation. Underwent mitral valve replacement, coronary artery bypass grafting 1, Maze procedure and clipping of the left atrial appendage with a complication of the left ventricular wall tear. The patient has had a very protracted recovery she is now day 14 post operative and is still having difficulty with her respiratory status requiring BiPAP. The patient's nutritional status and underlying comorbidities have complicated her care. She now has evidence of the sternal dehiscence with evidence of gram negatives bacilli being found at the site. There is evidence of urinary tract infection with E. coli and Serratia. This Serratia species is somewhat resistant and consequently we'll alter the current antimicrobial therapy from Zosyn to meropenem to ensure coverage for other potential pathogens that are resistant that could be in the sternal wound while we await cultures. The patient will be going to the operating room tomorrow for debridement and wound VAC placement. The cultures were further direct the overall course of antibiotics. Urinary infection appears to be doing somewhat better. The patient fortunately is comfortable and doing well with her BiPAP. 12/10/2017 the patient is status post surgery and actually is feeling a bit better this afternoon than yesterday. Her pain is quite well controlled. She is not on BiPAP. She is less short of breath. Wound culture has verified the Serratia marcescens to the sternal wound. We'll constantly continue the current course of meropenem due to some of the resistance patterns or seeing with the species. Continue local care at this point time with the negative pressure system to the sternal wound. The plastic surgery consult is being requested for reconstruction of her chest. She will require a course of intravenous antibiotic therapy given her complex infection. Dual-lumen PICC is already in place. We'll repeat the discharge planners as to her place of rehab. 12/11/2017 the patient is metabolically stable but is having difficulties with her respiratory status and is now back on BiPAP which has been intermittent over the last multiple days. Negative pressure therapy remains intact and the sternum and we await the plastic surgery intervention. 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 Continue supportive care, and nutritional supplements as possible to improve for tissue healing. 12/13/2017 patient is on BiPAP. She is comfortable at this time. Receiving her intravenous antibiotic therapy without difficulties. At this time the surgeon present in a sterile fashion the wound VAC is removed. Surgeon evaluates and then the wound VAC is reapplied with 2 of the white foam, periwound protected with DuoDERM no difficulty with the seal. Merrem continues. 12/15/2017 the patient has had marked worsening of her status in that she had respiratory failure requiring reintubation and mechanical ventilation. She is now sedated and comfortable but has had some hemodynamic instability and is now back on vasopressor therapy. Bronchoscopy is performed and suctioning of mucous plugs as allowed some improvement of her pulmonary status. Further cultures are process. Meropenem and vancomycin continue for the isolated Serratia and concerns for resistant gram-positive infection at this time. Plastic surgery evaluation is in process and surgical plans for later this week appear to be possible. 12/16/2017 reveals the patient to be stable from the last 24 hours. Her ventilatory settings are similar. She's currently not on vasopressor therapy. She is tolerating current antibiotic therapy well with no difficulties with rash and diarrhea or marked changes of her hematological parameters. She's had no further active bleeding. Sputum culture with gram-positive cocci seen vancomycin was added we await final cultures. 12/20/2017 patient remained stable and is being prepped for her sternal reconstruction surgery tomorrow. She's not on vasopressor therapy, and vent settings are stable. Most recent bronchoscopy showed mucous plug no evidence of any new pathogens except yeast was found likely from upper airways. Fluconazole was added given her significant risks, although fungal pneumonia is not occurring at this time. At the time of reconstruction repeat samplings from her sternum will be helpful to help direct the course of antibiotic therapy , pathology and culture of the sternum will be helpful. Remains on the meropenem and vancomycin at this time. 12/21/2017 the patient is status post the sternal reconstruction with muscle flap, reportedly is only a partial closure at this time. However visit. The cardiac structure is completely covered. The patient is showing improvement in her cardiopulmonary status today. No active bleeding is noted. She is tolerating current antibiotic therapy well with meropenem and vancomycin. Await final culture and pathological data to help derive the course of her antibiotic therapy 12/23/2017 reveals the patient to be improved, she has been extubated and tolerating BiPAP well. The case is discussed with the cardiothoracic surgeon. The muscle flap was then performed and there is a biological skin substitute over the flap. She related that the plastic surgeon would not allow a wound VAC to be placed for approximately 10 days after the surgery. We will monitor. Continue current antibiotic therapy planning a multiweek course of therapy for the complex sternal wound infection. 12/24/2017 reveals the patient to have further improvement that she has had a tracheostomy placed. This will hopefully help her long-term weaning situation and also help with the nutritional difficulties. As she has improvement of her status hopefully the significant difference with her skin from the edema low albumin and blistering will improve. Receiving extensive antibiotic therapy for the sternal wound dehiscence will continue with the meropenem and vancomycin at this time. 12/25/2017 reveals the patient to have some improvement in the last 24 hours. She's doing well with a tracheostomy and is on 35% FiO2. Pain control is well at this point in time. Her spitting edema seems to be slightly improving and does not have as many blisters that she was having. Still does have anasarca but appears to be a bit less tight than she was a day ago. Her wounds are improving with the local wound care. Antibiotic therapy continues with meropenem and vancomycin for the sternal wound dehiscence and infection. Dressing changes have been per the cardiothoracic team to the chest wound. The abdominal wound is healing well and is having some serous drainage related to the anasarca. Hopefully with improving edema status and improve nutritional status anasarca will resolve. 12/27/2017 reveals a patient with further improvement. Her anasarca is improving and she is having less edema. She is tolerating the intravenous antibiotic therapy of meropenem and vancomycin for her sternal wound dehiscence. Leukocytosis in general is improved. No other new infections are noted. She had a wound VAC dressing change today of the sternal area. 12/28/2017 reveals the patient to have developed some bowel distention and concerns to ileus. She's been seen by general surgery. He will determine if she needs to have her Dobbhoff removed and an NG tube place. The patient has significant hypo albuminemia and is in need of the extensive supplementation, consequently TPN was requested per the surgeon. She will remain on her antibiotic therapy planning 6 weeks for the complex sternal dehiscence. Cardiothoracic surgery have changed her VAC dressing to her sternal wound. 12/29/2017 patient continues to tolerate antibiotic therapy well. Orders have been clarified for the 6 weeks of meropenem and vancomycin. cardiothoracic is in charge of the dressing changes to the complex sternal dehiscence wound. Tolerating TPN well with overall goal to improve her very low protein which will help her significant and extensive tissue edema. 12/30/2017 patient continues to have some improvement, if she is improving [facility] of physical therapy.she is doing better from her ileus and TPN is being well-tolerated.will be on intravenous antibiotic therapy through 01/21/2018 12/31/2017 patient is stable at this time status post the NG tube has been placed for her ileus. Nutrition via TPN. Antibiotic therapy with the meropenem and vancomycin continues through 01/21/2018. Follow up cultures as indicated. Wound VAC is being changed as per cardiothoracic surgery. The pressure ulcerations to the buttocks area and posterior scalp are improving. 01/03/2018 reveals the patient to be feeling somewhat better today. Pain level is 0. Tolerating nutrition well at this point in time and has been cleared for a PEG tube to be placed to allow easier nutrition when she is ready for [facility]. He has tolerated IMV trial today quite well. Antibiotic therapy continues to 01/21/2018. 01/04/2018 H and doing well on her current CPAP trials. PEG tube tomorrow. If this occurs she will then be able to have anticoagulation, cardioversion. Once cardioversion occurs in her heart rate improve she would then be a candidate for [facility]. Antibiotic therapy until 01/21/2018 01/05/2018 patient has had her PEG tube placed today. Other than some pain at that site she's doing quite well. Tolerating multiple hours of CPAP today. There was a momentary standing with a multiperson assist. When she is anticoagulated will then be able to have a cardioversion after which she will be [facility] therapy through 01/21/2018 Current Visit: Yes Status: Acute Code(s): T81.32XA - DISRUPTION OF INTERNAL OPERATION (SURGICAL) WOUND, NEC, INIT SNOMED Code(s): 50550044
[2018-01-06] MEDS: IPRATROPIUM-ALBUTEROL 3 ML NEB INHALATION SCH ×6 (00:05→19:16)
[2018-01-06] MEDS: METOCLOPRAMIDE 5 MG/ML 2 ML VIAL IVP SCH ×4 (00:15→17:55)
[2018-01-06] MEDS: HEPARIN SODIUM,PORCINE 5,000 UNIT/ML 1 ML VIAL SQ SCH ×3 (00:15→15:17)
[2018-01-06] MEDS: MEROPENEM 1 GM in SODIUM CHLORIDE 0.9% 100 ML IVPB SCH ×3 (00:15→15:17)
[2018-01-06 00:23] LABS: Glucose,Whole Blood 78 mg/dL (75-99)
[2018-01-06] MEDS: INSULIN ASPART 100 UNIT/ML 1 ML 10 ML VIAL SQ SCH ×4 (00:31→17:55)
[2018-01-06 05:36] LABS: Anisocytosis Moderate; Basophils % (A) 0 %; Eosinophils # (A) 0.2 k/uL (0-0.7); Eosinophils % (A) 2 %; HCT 25.8 % (34.0-46.0); Hypochromasia Marked; Lymphocytes # (A) 0.7 k/uL (1.0-4.8); Lymphocytes % (A) 6 %; MCH 27.4 pg (25.0-35.0); MCHC 31.2 g/dL (31.0-37.0); MCV 87.7 fL (80.0-100.0); Mean Platelet Volume 7.8; Monocytes # (A) 0.6 k/uL (0-1.0); Monocytes % (A) 5 %; Neutrophils # (A) 9.7 k/uL (1.3-7.7); Neutrophils % (A) 85 %; Platelet Count 269 k/uL (150-450); Poikilocytosis Slight; RBC 2.94 m/uL (3.80-5.40); RDW 20.7 % (11.5-15.5); WBC 11.4 k/uL (3.8-10.6)
[2018-01-06 05:46] LABS: INR 1.2 (<1.2); Prothrombin Time 11.7 sec (9.0-12.0)
[2018-01-06 05:50] LABS: Calcium 8.5 mg/dL (8.4-10.2)
[2018-01-06] MEDS: DILTIAZEM ORAL 60 MG TAB PO SCH ×3 (06:53→22:10)
[2018-01-06] MEDS: BUDESONIDE 1 MG/2 ML NEBU INHALATION SCH ×2 (07:41→19:16)
[2018-01-06] MEDS: PANTOPRAZOLE 40 MG TABLET PO SCH (07:52)
[2018-01-06] MEDS: AMIODARONE 200 MG TAB PO SCH ×2 (07:53→20:23)
[2018-01-06] MEDS: DEXTROSE 5%-0.45% NACL 1,000 ML IV SCH (07:53)
[2018-01-06] MEDS: LACTOBACILLUS ACIDOPH & BULGAR 1 EACH PACKET PO SCH ×3 (07:54→20:23)
[2018-01-06] MEDS: METOPROLOL TARTRATE 50 MG TAB NG-TUBE SCH ×2 (07:54→20:23)
[2018-01-06] MEDS: ATORVASTATIN 40 MG TAB PO SCH (07:54)
[2018-01-06] MEDS: ASPIRIN 81 MG PO SCH (07:54)
[2018-01-06] MEDS: VANCOMYCIN 1,500 MG in SODIUM CHLORIDE 0.9% 250 ML IVPB SCH (07:55)
[2018-01-06] MEDS: MORPHINE SULF 5MG/10ML VL IVP PRN ×2 (07:56→12:30)
--- NOTE | 2018-01-06 08:13 | P.PN ---
Subjective Progress Note Date: 01/06/18 Principal diagnosis: Severe mitral regurgitation. Coronary artery disease. Paroxysmal atrial fibrillation on Coumadin for anticoagulation. Recent hospitalization for lower GI bleed, duodenal ulcer. History of left subclavian stenosis with stent placement 2014 with recent discovery of critical re-in-stent stenosis. Previous tobacco dependence with preoperative FEV1 60% of predicted. Hypertension. Hyperlipidemia. Gallbladder disease. Family history of heart disease. Preoperative nasal swab positive for MRSA. Preoperative anemia. POD #42 mitral valve replacement using a 25 mm Ribera bioprosthetic tissue valve. Coronary artery bypass grafting 1, reverse saphenous vein graft to the obtuse marginal artery. Maze procedure. Endoscopic harvesting of the right greater saphenous vein. Epi-aortic ultrasound. Intraoperative transesophageal echocardiogram. Ligation of the left atrial appendage using a 40 mm AtriClip. Intraoperative left ventricular wall tear, an unexpected but potential outcome of surgery Acute blood loss anemia, and expected outcome given patient's preoperative anemia and intraoperative bleeding. Postoperative prolonged mechanical ventilation secondary to hemodynamic instability, and unexpected but potential outcome of surgery given the extensive nature of her perioperative course. POD #13 placement of a #8 Shiley nonfenestrated tracheostomy tube. Sternal incision dehiscence, a possible outcome of surgery given patient's obesity, nutrition status, debility POD #14 right rectus abdominous muscle flap closure, open sternal wound. Closure of sternal wound and muscle flap with skin graft substitute, 238 cm. Implantation of reconstructive graft for closure of abdominal wall wound, [address] Krause POD #27 sternal wound debridement with placement of wound VAC. Postoperative left lower lobe collapse secondary to mucous plugging, and unexpected but potential outcome of surgery. Bronchial washings positive for Rachana species. POD #22 bronchoscopy and bronchoalveolar lavage of the left lower lobe and extraction of mucous plug. Postoperative ileus, an unexpected but potential outcome of surgery. POD #1 placement of percutaneous endoscopic gastrostomy tube. The patient's currently sitting up in bed in no acute distress. Does complain of some mild pain around the PEG tube site. Still in rapid A. flutter but heart rate is improving. She had PEG tube placed yesterday, will restart tube feedings. She was restarted on Coumadin yesterday. Objective - Vital Signs Vital signs: Vital Signs Temp 99.1 F 01/06/18 04:00 Pulse 118 H 04/05/18 07:54 Resp 25 H 01/06/18 06:00 BP 106/58 01/04/18 08:59 Pulse Ox 98 01/06/18 06:00 Intake & Output 01/05/18 01/06/18 01/06/18 18:59 06:59 18:59 Intake Total 453 169 Output Total 605 1765 Balance -152 -1596 Weight 100.6 kg 97.3 kg Intake: IV 393 169 Dextrose 5%-0.45% NaCl 1, 110 130 000 ml @ 10 mls/hr IV . Q24H CARLEE Rx#:[id number] Meropenem 1 gm In Sodium 200 Chloride 0.9% 100 ml @ 200 mls/hr IVPB Q8HR CARLEE Rx#:[id number] Pressure Bag 33 39 Oral 60 Output: Drainage 200 1400 Right Abdomen 200 1400 Urine 405 365 Other: Voiding Method Indwelling Catheter Indwelling Catheter ABP, PAP, CO, CI - Last Documented Arterial Blood Pressure 108/58 Pulmonary Artery Pressure 38/33 Cardiac Output 5.8 Cardiac Index 2.9 - Constitutional General appearance: Present: cooperative, no acute distress, obese - Respiratory Details: Lung sounds and is bilaterally. Respirations even, nonlabored. Currently on mechanical ventilation with oxygen saturation 97%. Ventilator settings assist control mode, FiO2 35%, tidal volume 400, respiratory rate 20, PEEP 5. #8 Shiley tracheostomy present. - Cardiovascular Details: S1, S2 present. Regular, tachycardic rate and rhythm, rapid atrial flutter on telemetry. Open chest with wound VAC in place. Palpable peripheral pulses bilaterally. Bilateral lower extremity edema present, mostly feet and thigh area. No calf pain or tenderness noted. Legs with Vance wraps from toes to knees. SCDs present. Right axillary arterial line, left brachial PICC line present. - Gastrointestinal Gastrointestinal Comment(s): Abdomen soft, nontender, nondistended, obese, no tympany noted. Active bowel sounds 4 quadrants. PEG tube present to left upper quadrant, currently clamped. - Genitourinary Genitourinary Comment(s): Mason present draining clear, medially urine. Output 25-30 mL/h overnight. - Integumentary Integumentary Comment(s): Skin is warm and dry. Anterior chest open with wound VAC in place. Abdominal incision was clean dry intact maya, drainage 300 mL overnight, 1000 mL. - Neurologic Neurologic: Present: CNII-XII intact - Musculoskeletal Musculoskeletal: Present: generalized weakness - Psychiatric Psychiatric: Present: A&O x's 3, appropriate affect, intact judgment & insight - Allied health notes Allied health notes reviewed: nursing - Labs CBC & Chem 7: 01/06/18 05:10 01/06/18 05:10 Labs: Abnormal Lab Results - Last 24 Hours (Table) 01/05/18 01/06/18 01/06/18 Range/Units 10:40 05:10 05:10 WBC 11.4 H (3.8-10.6) k/uL RBC 2.94 L (3.80-5.40) m/uL Hgb 8.0 L (11.4-16.0) gm/dL Hct 25.8 L (34.0-46.0) % RDW 20.7 H (11.5-15.5) % Neutrophils # 9.7 H (1.3-7.7) k/uL Lymphocytes # 0.7 L (1.0-4.8) k/uL INR (<1.2) BUN 38 H (7-17) mg/dL POC Glucose (mg/dL) 111 H (75-99) mg/dL 01/06/18 Range/Units 05:10 WBC (3.8-10.6) k/uL RBC (3.80-5.40) m/uL Hgb (11.4-16.0) gm/dL Hct (34.0-46.0) % RDW (11.5-15.5) % Neutrophils # (1.3-7.7) k/uL Lymphocytes # (1.0-4.8) k/uL INR 1.2 H (<1.2) BUN (7-17) mg/dL POC Glucose (mg/dL) (75-99) mg/dL Microbiology - Last 24 Hours (Table) 01/02/18 06:00 Stool Culture - Final Stool 12/15/17 10:40 Acid Fast Bacilli Smear - Final Bronchial Washings - Left Acid Fast Bacilli Culture - Preliminary 12/10/17 10:45 Acid Fast Bacilli Smear - Final Chest Acid Fast Bacilli Culture - Preliminary 12/10/17 10:50 Acid Fast Bacilli Smear - Final Chest Acid Fast Bacilli Culture - Preliminary - Imaging and Cardiology Chest x-ray: image reviewed Assessment and Plan (1) Acute blood loss anemia Current Visit: Yes Status: Acute Code(s): D62 - ACUTE POSTHEMORRHAGIC ANEMIA SNOMED Code(s): 263595595 (2) CAD (coronary artery disease) Current Visit: Yes Status: Chronic Code(s): I25.10 - ATHSCL HEART DISEASE OF [place] CORONARY ARTERY W/O ANG PCTRS SNOMED Code(s): 23253704 (3) Hyperlipidemia Current Visit: Yes Status: Chronic Code(s): E78.5 - HYPERLIPIDEMIA, UNSPECIFIED SNOMED Code(s): 05545909 (4) Hypertension Current Visit: Yes Status: Chronic Code(s): I10 - ESSENTIAL (PRIMARY) HYPERTENSION SNOMED Code(s): 38398188 (5) Severe mitral regurgitation Current Visit: Yes Status: Chronic Code(s): I34.0 - NONRHEUMATIC MITRAL ( VALVE) INSUFFICIENCY SNOMED Code(s): 20821049 (6) Stenosis of left subclavian artery Current Visit: Yes Status: Chronic Code(s): I77.1 - STRICTURE OF ARTERY SNOMED Code(s): 15628383454748631 (7) Paroxysmal atrial fibrillation Current Visit: No Status: Resolved Code(s): I48.0 - PAROXYSMAL ATRIAL FIBRILLATION SNOMED Code(s): 005881100 (8) History of GI bleed Current Visit: No Status: Resolved Code(s): Z87.19 - PERSONAL HISTORY OF OTHER DISEASES OF THE DIGESTIVE SYSTEM SNOMED Code(s): 978499168 (9) Family history of coronary artery disease Current Visit: Yes Status: Chronic Code(s): Z82.49 - FAMILY HX OF ISCHEM HEART DIS AND OTH DIS OF THE CIRC SYS SNOMED Code(s): 078126754 (10) Ileus, postoperative Current Visit: Yes Status: Acute Code(s): K91.89 - OTH POSTPROCEDURAL COMPLICATIONS AND DISORDERS OF DGSTV SYS; K56.7 - ILEUS, UNSPECIFIED SNOMED Code(s): 159870316 (11) Pressure ulcer of contiguous region involving back and buttock, stage 3 Current Visit: Yes Status: Acute Code(s): L89.43 - PRESSR ULCER OF CONTIG SITE OF BACK, BUTTOCK AND HIP, STG 3 SNOMED Code(s): 137274285 (12) Sternal wound dehiscence Current Visit: Yes Status: Acute Code(s): T81.32XA - DISRUPTION OF INTERNAL OPERATION (SURGICAL) WOUND, NEC, INIT SNOMED Code(s): 63935766 Plan: 1. Continue baby aspirin, statin, subcu heparin, beta krunal. 2. Continue amiodarone for atrial fibrillation prophylaxis. No further IV amiodarone. 3. Continue Cardizem for rate control. 4. Ventilator management per pulmonology. Wean as tolerated. 5. Coumadin initiated yesterday. Will dose based on daily PT/INR. Once therapeutic, Dr. Crawley will cardiovert patient. 6. Continue meropenem, Vanco per Dr. Olivera until 01/21/2018. 7. Will monitor labs, chest x-rays. 8. Bronchodilators per pulmonology. 9. Will give IV Lasix today. 10. GI/DVT prophylaxis. 11. Increase activity. PT/OT/cardiac rehab following. 12. Keep abdominal drain until output is less then 30 mL in [address] Krause. 13. Keep Mason for strict accurate intake and output. Change out every 7 days. 14. Wound VAC to be changed on Wednesday, Wednesday, and Wednesday by nurse practitioner. Changed yesterday, measurements of the wound 10.5 x 14 x 1 cm. 15. Local wound care to back of head and lower back. Silvadene for left upper thigh skin tear. 16. More recommendations as patient progresses. [facility]tic[facility]ate [facility] to [facility] next [facility]. Time with Patient: Greater than 30
[2018-01-06 08:17] LABS: ABG HCO3 28 mmol/L (21-25); ABG Oxygen Saturation 99.1 % (94-97); ABG PCO2 37 mmHg (35-45); ABG PH 7.49 (7.35-7.45); ABG PO2 116 mmHg (83-108); ABG TCO2 30 mmol/L (19-24)
--- NOTE | 2018-01-06 08:59 | XR ---
EXAMINATION TYPE: XR chest 1V portable DATE OF EXAM: 01/06/2018 COMPARISON: 01/05/2018 HISTORY: Postop TECHNIQUE: Single frontal view of the chest is obtained. FINDINGS: Postsurgical changes noted. Central line, tracheostomy tube and NG tube are stable. Bilate ral pleural effusion and consolidation with diffuse interstitial pattern. The heart is enlarged. Vasc ular stent noted overlying the left upper mediastinum. Atherosclerotic change aorta. IMPRESSION: Bilateral infiltrate and pleural effusion correlate for CHF.
[2018-01-06] MEDS: IPRATROPIUM-ALBUTEROL 3 ML NEB INHALATION PRN (11:42)
[2018-01-06 11:50] LABS: Glucose,Whole Blood 90 mg/dL (75-99)
--- NOTE | 2018-01-06 11:55 | P.PN ---
Subjective Progress Note Date: 01/06/18 Principal diagnosis: Status post CABG and mitral valve replacement postoperative day # 42 This is a 67-year-old female, status post 1 vessel bypass surgery and mitral valve replacement, patient is postoperative day #39. Patient also had surgical flap of the sternal 1 as she developed wound dehiscence and infection. Postoperative day #13. Patient also underwent tracheostomy and she is postoperative day #10. Patient remains on mechanical ventilation, continues to have chronic atelectasis and possible pneumonia in the left lower lobe, remains on assist control mode of mechanical ventilation, and today I will plan to try her on IMV and pressure support hoping to cut down the IMV rate gradually and possibly keep her on pressure support only. In the meantime the patient has been evaluated by [facility] for possible transfer to their facility. Cardiac-mcguire the patient remains in atrial flutter, ventricular rate is about 120. That is being addressed by cardiology on the case. Her ventilator settings are tidal volume of 400 assist control rate of 20 FiO2 of 35 % PEEP of 5. Toprol pressure is about 20. Chest x-ray as noted above. Suspect some component of mild congestive heart failure. And left lower lobe atelectasis. Labs were all reviewed, ABG showed a pO2 of 121 pCO2 of 38 pH of 7.52 basic metabolic profile is normal BUN is 43 creatinine 0.91 WBC count is 13.7 hemoglobin is 8.1. Reevaluated today on 01/04/2018, patient remains on mechanical ventilation, with able to elevate many hours of pressure support of 12 and IMV of 6 yesterday. Today I plan to try pressure support of 12 and CPAP. Patient is scheduled to have a PEG tube placement is also scheduled to have cardioversion after a good course of anticoagulation and PEG tube placement. Hopefully this will be all done this week, and then we can potentially consider transferring the patient to a [facility] care [facility]. ABG today showed a pO2 of 99 pCO2 of 42 pH of 7.49. Rest of the labs were noted to be unremarkable. Chest x-ray is basically the same, continues to show mild congestive changes, and left retrocardiac opacity with left lower lobe atelectasis. Patient was reevaluated today on 01/05/2018, remains on mechanical ventilation, plan to give her another trial today of IMV pressure support. Patient did relatively well yesterday, but still not quite ready for extubation. Today she had a PEG tube placed by Dr. Aldridge, and she may require cardioversion tomorrow. Overall the patient continues to do about the same. Her chest x-ray continues to show some left perihilar infiltrate and left lower lobe atelectasis. Labs including CBC ABG and basic metabolic profile were all reviewed. Her ABG showed a pO2 of 115 pCO2 of 41 pH of 7.47 on 35% FiO2. Hemoglobin is 8.3 basic metabolic profile is normal. Renal profile is normal. Reevaluated today on 01/06/2018, patient is doing well, PEG tube was placed yesterday uneventfully. Patient will go on to another trial of weaning utilizing a pressure support today with CPAP. She will be on a pressure support of 12. Patient may undergo cardioversion tomorrow, waiting to be fully anticoagulated. Chest x-ray continues to show some atelectasis at the left base , but her ABG is excellent and her labs are excellent. ABG showed a pO2 of 116 pCO2 of 37 pH of 7.49 and this was on 35% FiO2 and assist control mode of mechanical ventilation. Her CBC showed a hemoglobin of 8 WBC count of 11.4. Basic metabolic profile and renal profile are normal. Objective - Vital Signs Vital signs: Vital Signs Temp 98.6 F 01/06/18 08:00 Pulse 116 H 01/06/18 10:00 Resp 23 01/06/18 10:00 BP 106/58 01/04/18 08:59 Pulse Ox 99 01/06/18 10:00 Intake & Output 01/05/18 01/06/18 01/06/18 18:59 06:59 18:59 Intake Total 453 169 383 Output Total 605 1765 25 Balance -152 -1596 358 Weight 100.6 kg 97.3 kg Intake: IV 393 169 363 Dextrose 5%-0.45% NaCl 1, 110 130 10 000 ml @ 10 mls/hr IV . Q24H [facility] Rx#:[id number] Meropenem 1 gm In Sodium 200 100 Chloride 0.9% 100 ml @ 200 mls/hr IVPB Q8HR [facility] Rx#:[id number] Pressure Bag 33 39 3 Vancomycin 1,500 mg In 250 Sodium Chloride 0.9% 250 ml @ 125 mls/hr IVPB Q36H [facility] Rx#:[id number] Oral 60 Tube Feeding 20 Output: Drainage 200 1400 Right Abdomen 200 1400 Urine 405 365 25 Other: Voiding Method Indwelling Catheter Indwelling Catheter ABP, PAP, CO, CI - Last Documented Arterial Blood Pressure 91/49 Pulmonary Artery Pressure 38/33 Cardiac Output 5.8 Cardiac Index 2.9 - Exam General appearance: Present: cooperative, no acute distress, obese, - Neck Details: Neck is supple, no JVD, no lymphadenopathy. Tracheostomy tube is midline and intact, sutures in place. - Respiratory Details: Lungs sounds essentially diminished at the left base, Respirations are symmetrical and nonlabored with mechanical ventilator support. Oxygen saturation are 99% with current ventilator settings. - Cardiovascular Details: Pain is tachycardic at regular rate and rhythm seems to be regular. This may be a a flutter with 2 to one block. S1 and S2 present, negative for S3 , gallop or murmur. - Gastrointestinal Gastrointestinal Comment(s): Abdomen is soft, nontender, no megaly, no rebound, PEG tube is intact. - Genitourinary Genitourinary Comment(s): Mason catheter for accurate I&O. Draining clear yellow urine. - Integumentary Integumentary Comment(s): Skin is warm and dry. No clubbing or cyanosis. Both lower extremities are wrapped with Vance bandage. - Neurologic Neurologic Comment(s): Alert and following verbal commands. No gross focal neurologic deficit noted. - Musculoskeletal Musculoskeletal: Present: generalized weakness, strength equal bilaterally - Psychiatric Psychiatric Comment(s): Psychiatric: Normal mood, affect, and mental status examination noted. - Labs CBC & Chem 7: 01/06/18 05:10 01/06/18 05:10 Labs: Abnormal Lab Results - Last 24 Hours (Table) 01/06/18 01/06/18 01/06/18 Range/Units 05:10 05:10 05:10 WBC 11.4 H (3.8-10.6) k/uL RBC 2.94 L (3.80-5.40) m/uL Hgb 8.0 L (11.4-16.0) gm/dL Hct 25.8 L (34.0-46.0) % RDW 20.7 H (11.5-15.5) % Neutrophils # 9.7 H (1.3-7.7) k/uL Lymphocytes # 0.7 L (1.0-4.8) k/uL INR 1.2 H (<1.2) ABG pH (7.35-7.45) ABG pO2 (83-108) mmHg ABG HCO3 (21-25) mmol/L ABG Total CO2 (19-24) mmol/L ABG O2 Saturation (94-97) % BUN 38 H (7-17) mg/dL 01/06/18 Range/Units 08:14 WBC (3.8-10.6) k/uL RBC (3.80-5.40) m/uL Hgb (11.4-16.0) gm/dL Hct (34.0-46.0) % RDW (11.5-15.5) % Neutrophils # (1.3-7.7) k/uL Lymphocytes # (1.0-4.8) k/uL INR (<1.2) ABG pH 7.49 H (7.35-7.45) ABG pO2 116 H (83-108) mmHg ABG HCO3 28 H (21-25) mmol/L ABG Total CO2 30 H (19-24) mmol/L ABG O2 Saturation 99.1 H (94-97) % BUN (7-17) mg/dL Microbiology - Last 24 Hours (Table) 01/02/18 06:00 Stool Culture - Final Stool 12/15/17 10:40 Acid Fast Bacilli Smear - Final Bronchial Washings - Left Acid Fast Bacilli Culture - Preliminary 12/10/17 10:45 Acid Fast Bacilli Smear - Final Chest Acid Fast Bacilli Culture - Preliminary 12/10/17 10:50 Acid Fast Bacilli Smear - Final Chest Acid Fast Bacilli Culture - Preliminary Assessment and Plan Assessment: 1 coronary artery bypass surgery with single-vessel bypass and mitral valve replacement/bioprosthetic valve. The patient is postop day #42 2 sternal wound infection with Serratia marcescens with subsequent dehiscence. The patient underwent wound debridement with subsequent muscle flap and the patient is postop day #16. The patient remains on antibiotics. 3 prolonged ventilator dependent respiratory failure, status post tracheostomy tube insertion and the patient is postop day #13 Patient remains on assist control mode of ventilation . We will try again IMV pressure support mode of mechanical ventilation and gradually transition to pressure support only with CPAP. 4 acute on chronic respiratory failure, multifactorial. The patient's sternal wound and the muscle flap is healing for now. 5 increased edema both upper and lower extremities, improving 6 tachycardia with an a flutter rhythm, cardiology is on the case. She is mainly maintained on oral medications. No plans to cardiovert per cardiology 7 peripheral vascular disease 8 left subclavian artery stenosis status post insertion of an endovascular stent 9 anemia, a expected outcome of prolonged ICU stay and multiple surgeries 10 ileus, improving patient is on enteral feeding 11 left lung collapse status post bronchoscopy and therapeutic it was suctioning. Patient has Rachana within the sputum currently on Diflucan. Most recent chest x-ray shows adequate rest of both lungs and there is some mild component of pulmonary congestion. 12 hypertension 13 hyperlipidemia 14 anemia multifactorial with a hemoglobin level of 8.3 today 15 status post PEG tube placement postoperative day #1 Recommendation: Continue ventilatory support, continue antibiotics, nutritional support, resume feeding via PEG tube. Awaiting cardioversion likely tomorrow, and discharge planning over the weekend. In the meantime we'll continue daily trials of weaning, today she will be on pressure support and CPAP. Time with Patient: Less than 30
--- NOTE | 2018-01-06 11:58 | P.PN ---
Subjective Progress Note Date: 01/06/18 Principal diagnosis: Status post open heart This is a pleasant 67-year-old female patient who sees Dr. Crawley as an outpatient who underwent an open heart surgery where she had CABG 1 associated with mitral valve replacement and maze procedure, with a postoperative course was complex and complicated by respiratory failure, chest incision dehiscence, where the patient did have to go to the OR again and have another surgery. Currently the patient is in chronic respiratory failure and she does have a tracheostomy hemodynamically she continues to have atrial flutter with heart rate around 115 beats per minute.The hemoglobin continues to be around 8. She was started on oral anticoagulation with Coumadin today for possible cardioversion in the next 48-72 hours. Objective - Vital Signs Vital signs: Vital Signs Temp 98.6 F 01/06/18 08:00 Pulse 112 H 01/06/18 11:50 Resp 23 01/06/18 10:00 BP 106/58 01/04/18 08:59 Pulse Ox 99 01/06/18 10:00 Intake & Output 01/05/18 01/06/18 01/06/18 18:59 06:59 18:59 Intake Total 453 169 383 Output Total 605 1765 25 Balance -152 -1596 358 Weight 100.6 kg 97.3 kg Intake: IV 393 169 363 Dextrose 5%-0.45% NaCl 1, 110 130 10 000 ml @ 10 mls/hr IV . Q24H [facility] Rx#:[id number] Meropenem 1 gm In Sodium 200 100 Chloride 0.9% 100 ml @ 200 mls/hr IVPB Q8HR [facility] Rx#:[id number] Pressure Bag 33 39 3 Vancomycin 1,500 mg In 250 Sodium Chloride 0.9% 250 ml @ 125 mls/hr IVPB Q36H [facility] Rx#:[id number] Oral 60 Tube Feeding 20 Output: Drainage 200 1400 Right Abdomen 200 1400 Urine 405 365 25 Other: Voiding Method Indwelling Catheter Indwelling Catheter ABP, PAP, CO, CI - Last Documented Arterial Blood Pressure 91/49 Pulmonary Artery Pressure 38/33 Cardiac Output 5.8 Cardiac Index 2.9 - Labs CBC & Chem 7: 01/06/18 05:10 01/06/18 05:10 Labs: Abnormal Lab Results - Last 24 Hours (Table) 01/06/18 01/06/18 01/06/18 Range/Units 05:10 05:10 05:10 WBC 11.4 H (3.8-10.6) k/uL RBC 2.94 L (3.80-5.40) m/uL Hgb 8.0 L (11.4-16.0) gm/dL Hct 25.8 L (34.0-46.0) % RDW 20.7 H (11.5-15.5) % Neutrophils # 9.7 H (1.3-7.7) k/uL Lymphocytes # 0.7 L (1.0-4.8) k/uL INR 1.2 H (<1.2) ABG pH (7.35-7.45) ABG pO2 (83-108) mmHg ABG HCO3 (21-25) mmol/L ABG Total CO2 (19-24) mmol/L ABG O2 Saturation (94-97) % BUN 38 H (7-17) mg/dL 01/06/18 Range/Units 08:14 WBC (3.8-10.6) k/uL RBC (3.80-5.40) m/uL Hgb (11.4-16.0) gm/dL Hct (34.0-46.0) % RDW (11.5-15.5) % Neutrophils # (1.3-7.7) k/uL Lymphocytes # (1.0-4.8) k/uL INR (<1.2) ABG pH 7.49 H (7.35-7.45) ABG pO2 116 H (83-108) mmHg ABG HCO3 28 H (21-25) mmol/L ABG Total CO2 30 H (19-24) mmol/L ABG O2 Saturation 99.1 H (94-97) % BUN (7-17) mg/dL Microbiology - Last 24 Hours (Table) 01/02/18 06:00 Stool Culture - Final Stool 12/15/17 10:40 Acid Fast Bacilli Smear - Final Bronchial Washings - Left Acid Fast Bacilli Culture - Preliminary 12/10/17 10:45 Acid Fast Bacilli Smear - Final Chest Acid Fast Bacilli Culture - Preliminary 12/10/17 10:50 Acid Fast Bacilli Smear - Final Chest Acid Fast Bacilli Culture - Preliminary Assessment and Plan Assessment: Assessment #1 respiratory failure #2 status post open heart and status post CABG and mitral valve replacement #3 persistent atrial flutter #4 congestive heart failure #5 sternal wound infection #6 peripheral vascular disease and known left subclavian stenosis #7 multiple comorbid conditions Plan #1 Coumadin was started yesterday. #2 cardioversion in the next 48 hours.
[2018-01-06] MEDS ORDERED: FUROSEMIDE 10 MG/ML 2 ML VIAL IV STA (12:15)
[2018-01-06] MEDS ORDERED: MORPHINE SULFATE 4MG/4ML SYRG IVP PRN (16:39)
[2018-01-06 17:23] LABS: Glucose,Whole Blood 82 mg/dL (75-99)
--- NOTE | 2018-01-06 17:44 | P.PN ---
Subjective Progress Note Date: 01/06/18 Progress note being dictated for Dr. Kitchen Interval history: This is 67-year-old female status post CABG, mitral valve replacement, status post multiple blood products transfusions. Remains vent dependent on 40% FiO2/+5 of PEEP. Chest x-ray reporting fluid overload, improvement in volume status, aeration.Maintained on norepinephrine, Primacor, dopamine and insulin drip. Cardiac index 2.7. Telemetry atrial flutter/sinus tach. Tube feeding initiated via OG tube. Hemoglobin 7.3, Platelets decreased to 64 today, maintained on low-dose aspirin. Review systems unable to obtain as patient sedated and on mechanical ventilation. Active Medications Albuterol/Ipratropium (Duoneb 0.5 Mg-3 Mg/3 Ml Soln) 3 ml INHALATION RT-Q4H [facility] Last Admin: 11/29/17 15:17 Dose: 3 ml Albuterol/Ipratropium (Duoneb 0.5 Mg-3 Mg/3 Ml Soln) 3 ml INHALATION RT-Q2H PRN PRN Reason: Shortness Of Breath Or Wheezing Amiodarone HCl (Cordarone) 200 mg PO BID [facility] Aspirin (Aspirin) 81 mg PO DAILY [facility] Last Admin: 11/29/17 08:54 Dose: 81 mg Atorvastatin Calcium (Lipitor) 40 mg PO DAILY [facility] Last Admin: 11/29/17 08:54 Dose: 40 mg Benzocaine/Menthol (Cepacol Lozenge) 1 each MUCOUS MEM Q2H PRN PRN Reason: Sore Throat Bisacodyl (Dulcolax) 10 mg RECTAL DAILY PRN PRN Reason: Constipation Chlorhexidine Gluconate (Peridex) 15 ml MUCOUS MEM BID [facility] Last Admin: 11/29/17 08:48 Dose: 15 ml Furosemide (Lasix) 40 mg IV ONCE ONE Stop: 11/29/17 20:01 Propofol 1,000 mg/ IV Solution 100 mls @ 0 mls/hr IV .Q0M [facility]; Titrate PRN Reason: Protocol Last Admin: 11/29/17 17:54 Dose: 26.13 mcg/kg/min, 17.2 mls/hr Norepinephrine Bitartrate (Levophed-0.9% Nacl 16 Mg/250ml Pmx) 16 mg in 250 mls @ 0 mls/hr IV .Q0M [facility]; Titrate PRN Reason: Protocol Last Admin: 11/29/17 17:54 Dose: 2 mcg/min, 1.875 mls/hr Sodium Chloride (Saline 0.45%) 1,000 mls @ 30 mls/hr IV .Q24H [facility] Last Admin: 11/29/17 10:28 Dose: Not Given Milrinone Lactate/Dextrose 20 (mg/ IV Solution) 100 mls @ 6.58 mls/hr IV .[id number] [facility] PRN Reason: 0.2 MCG/KG/MIN Last Admin: 11/29/17 15:38 Dose: 0.2 mcg/kg/min, 6.58 mls/hr Insulin Aspart (Novolog) 0 unit SQ Q6HR [facility] PRN Reason: Protocol Last Admin: 11/29/17 12:36 Dose: Not Given Magnesium Hydroxide (Milk Of Magnesia) 2,400 mg PO BID PRN PRN Reason: Constipation Metoprolol Tartrate (Lopressor) 12.5 mg PO BID [facility] Last Admin: 11/29/17 08:55 Dose: 12.5 mg Miscellaneous Information (Magnesium Per Protocol) 1 each MISCELLANE DAILY PRN ; Protocol PRN Reason: Per Protocol Miscellaneous Information (Phosphorus Per Protocol) 1 each MISCELLANE DAILY PRN ; Protocol PRN Reason: Per Protocol Miscellaneous Information (Potassium Per Protocol) 1 each MISCELLANE DAILY PRN ; Protocol PRN Reason: Per Protocol Miscellaneous Information (Potassium Per Protocol) 1 each MISCELLANE DAILY PRN ; Protocol PRN Reason: Per Protocol Morphine Sulfate (Morphine Oral Dana 2mg/Ml) 6 mg PO Q2H PRN PRN Reason: Severe Pain Ondansetron HCl (Zofran) 4 mg IVP Q6HR PRN PRN Reason: Nausea And Vomiting Pantoprazole Sodium (Protonix) 40 mg IVP DAILY [facility] Last Admin: 11/29/17 08:55 Dose: 40 mg Senna/Docusate Sodium (Senokot-S) 2 each PO HS [facility] Last Admin: 11/28/17 20:41 Dose: 2 each Sodium Chloride (Saline Flush) 10 ml IV BID [facility] Last Admin: 11/29/17 08:56 Dose: 10 ml 11/30/2017 Chest x-ray reporting increased congestion, received additional Lasix. extubated this morning, currently maintained on BiPAP. Norepinephrine weaned off this morning. Maintained on Primacor, cardiac index 2.6. Received 1 dose of Lasix IV push. Renal function improving. Hemoglobin 7, platelets increased to 74. Atrial flutter per telemetry. Review systems unable to obtain as patient BiPAP dependent. Active Medications Generic Name Dose Route Start Last Admin Trade Name Freq PRN Reason Stop Dose Admin Albuterol/Ipratropium 3 ml 11/25/17 20:00 11/30/17 15:23 Duoneb 0.5 Mg-3 Mg/3 Ml Soln INHALATION 3 ml RT-Q4H [facility] Administration Albuterol/Ipratropium 3 ml 11/26/17 17:53 Duoneb 0.5 Mg-3 Mg/3 Ml Soln INHALATION RT-Q2H PRN Shortness Of Breath Or Wheezing Amiodarone HCl 200 mg 11/29/17 21:00 11/30/17 08:14 Cordarone PO 200 mg BID [facility] Administration Aspirin 81 mg 11/26/17 10:15 11/30/17 08:15 Aspirin PO 81 mg DAILY [facility] Administration Atorvastatin Calcium 40 mg 11/26/17 09:00 11/30/17 08:14 Lipitor PO 40 mg DAILY [facility] Administration Benzocaine/Menthol 1 each 11/25/17 19:03 Cepacol Lozenge MUCOUS MEM Q2H PRN Sore Throat Bisacodyl 10 mg 11/26/17 17:52 Dulcolax RECTAL DAILY PRN Constipation Fondaparinux 2.5 mg 11/30/17 11:30 11/30/17 13:23 Arixtra SQ 2.5 mg DAILY [facility] Administration Norepinephrine Bitartrate 16 mg in 250 mls @ 0 mls/hr 11/26/17 04:15 11:58 Levophed-0.9% Nacl 16 Mg/250ml Pmx IV 0 mcg/min .Q0M [facility] 0 mls/hr Protocol Titration Titrate Sodium Chloride 1,000 mls @ 10 mls/hr 11/26/17 10:15 11/30/17 12:51 Saline 0.45% IV Not Given .Q24H [facility] Milrinone Lactate/Dextrose 20 100 mls @ 6.58 mls/hr 11/29/17 15:00 11/30/17 08:16 mg/ IV Solution IV 0.2 mcg/kg/min .[id number] [facility] 6.58 mls/hr 0.2 MCG/KG/MIN Infusion Insulin Aspart 0 unit 11/29/17 12:00 11/30/17 12:50 Novolog SQ Not Given Q6HR [facility] Protocol Magnesium Hydroxide 2,400 mg 11/26/17 17:53 Milk Of Magnesia PO BID PRN Constipation Metoprolol Tartrate 12.5 mg 11/26/17 09:00 11/30/17 08:15 Lopressor PO 12.5 mg BID [facility] Administration Miscellaneous Information 1 each 11/25/17 19:03 Magnesium Per Protocol MISCELLANE DAILY PRN Per Protocol Protocol Miscellaneous Information 1 each 11/25/17 19:03 Phosphorus Per Protocol MISCELLANE DAILY PRN Per Protocol Protocol Miscellaneous Information 1 each 11/25/17 19:03 Potassium Per Protocol MISCELLANE DAILY PRN Per Protocol Protocol Miscellaneous Information 1 each 11/29/17 12:01 Potassium Per Protocol MISCELLANE DAILY PRN Per Protocol Protocol Morphine Sulfate 6 mg 11/29/17 13:31 Morphine Oral Dana 2mg/Ml PO Q2H PRN Severe Pain Ondansetron HCl 4 mg 11/25/17 19:03 Zofran IVP Q6HR PRN Nausea And Vomiting Pantoprazole Sodium 40 mg 11/26/17 09:00 11/30/17 08:15 Protonix IVP 40 mg DAILY [facility] Administration Senna/Docusate Sodium 2 each 11/26/17 21:00 11/29/17 20:40 Senokot-S PO 2 each HS [facility] Administration Sodium Chloride 10 ml 11/25/17 21:00 11/30/17 08:15 Saline Flush IV 10 ml BID [facility] Administration 12/01/2017 Breathing improving, weaned off of BiPAP and down to 6 L high flow. Wheezing resolved. Chest x-ray reports improvement. Staff reports patient appeared to be choking on pills last night, speech therapy consulted. Receiving one unit of packed RBCs for hemoglobin of 6.7. Mediastinal chest tubes discontinued, left pleural chest tube remains. Maintained on Primacor. Telemetry atrial flutter. Review of systems: CONSTITUTIONAL: No fever, no malaise HEENT: No recent visual problems or hearing problems. Denied any sore throat. CARDIOVASCULAR: No chest pain, no palpitations, no syncope. PULMONARY: Improving shortness of breath, no cough, no hemoptysis. GASTROINTESTINAL: No diarrhea, no nausea, no vomiting, no abdominal pain. Normoactive bowel sounds. NEUROLOGICAL: No headaches, diffuse weakness, no numbness. HEMATOLOGICAL: Denies any bleeding or petechiae. GENITOURINARY: Denies any burning micturition, frequency, or urgency. ENDOCRINE: Denies any polyuria or polydipsia. PSYCHIATRIC: No anxiety, no depression Active Medications Hydrocodone Bitart/Acetaminophen ([place] 5-325) 1 each PO Q4HR PRN PRN Reason: MILD TO MODERATE Pain Last Admin: 12/01/17 22:44 Dose: 1 each Hydrocodone Bitart/Acetaminophen ([place] 5-325) 2 each PO Q4HR PRN PRN Reason: MODERATE TO SEVERE Pain Albuterol/Ipratropium (Duoneb 0.5 Mg-3 Mg/3 Ml Soln) 3 ml INHALATION RT-Q4H [facility] Last Admin: 12/02/17 15:06 Dose: 3 ml Albuterol/Ipratropium (Duoneb 0.5 Mg-3 Mg/3 Ml Soln) 3 ml INHALATION RT-Q2H PRN PRN Reason: Shortness Of Breath Or Wheezing Last Admin: 12/01/17 18:09 Dose: 3 ml Amiodarone HCl (Cordarone) 200 mg PO BID [facility] Last Admin: 12/02/17 08:10 Dose: 200 mg Aspirin (Aspirin) 81 mg PO DAILY [facility] Last Admin: 12/02/17 08:10 Dose: 81 mg Atorvastatin Calcium (Lipitor) 40 mg PO DAILY [facility] Last Admin: 12/02/17 08:10 Dose: 40 mg Benzocaine/Menthol (Cepacol Lozenge) 1 each MUCOUS MEM Q2H PRN PRN Reason: Sore Throat Bisacodyl (Dulcolax) 10 mg RECTAL DAILY PRN PRN Reason: Constipation Budesonide (Pulmicort) 1 mg INHALATION RT-BID [facility] Last Admin: 12/02/17 07:19 Dose: 1 mg Fondaparinux (Arixtra) 2.5 mg SQ DAILY [facility] Last Admin: 12/02/17 08:10 Dose: 2.5 mg Formoterol Fumarate (Perforomist) 20 mcg INHALATION RT-BID [facility] Last Admin: 12/02/17 07:36 Dose: 20 mcg Norepinephrine Bitartrate (Levophed-0.9% Nacl 16 Mg/250ml Pmx) 16 mg in 250 mls @ 0 mls/hr IV .Q0M [facility]; Titrate PRN Reason: Protocol Last Titration: 11/30/17 11:58 Dose: 0 mcg/min, 0 mls/hr Sodium Chloride (Saline 0.45%) 1,000 mls @ 10 mls/hr IV .Q24H [facility] Last Admin: 12/01/17 14:04 Dose: 10 mls/hr Milrinone Lactate/Dextrose 20 (mg/ IV Solution) 100 mls @ 6.58 mls/hr IV .[id number] [facility] PRN Reason: 0.2 MCG/KG/MIN Last Admin: 12/02/17 08:57 Dose: 0.2 mcg/kg/min, 6.58 mls/hr Insulin Aspart (Novolog) 0 unit SQ Q6HR [facility] PRN Reason: Protocol Last Admin: 12/02/17 12:53 Dose: Not Given Magnesium Hydroxide (Milk Of Magnesia) 2,400 mg PO BID PRN PRN Reason: Constipation Methylprednisolone Sodium Succinate (Solu-Medrol) 30 mg IV Q8HR [facility] Last Admin: 12/02/17 08:10 Dose: 30 mg Metoprolol Tartrate (Lopressor) 25 mg PO BID [facility] Last Admin: 12/02/17 08:59 Dose: 25 mg Miscellaneous Information (Magnesium Per Protocol) 1 each MISCELLANE DAILY PRN ; Protocol PRN Reason: Per Protocol Miscellaneous Information (Phosphorus Per Protocol) 1 each MISCELLANE DAILY PRN ; Protocol PRN Reason: Per Protocol Miscellaneous Information (Potassium Per Protocol) 1 each MISCELLANE DAILY PRN ; Protocol PRN Reason: Per Protocol Miscellaneous Information (Potassium Per Protocol) 1 each MISCELLANE DAILY PRN ; Protocol PRN Reason: Per Protocol Ondansetron HCl (Zofran) 4 mg IVP Q6HR PRN PRN Reason: Nausea And Vomiting Pantoprazole Sodium (Protonix) 40 mg IVP DAILY [facility] Last Admin: 12/02/17 08:10 Dose: 40 mg Senna/Docusate Sodium (Senokot-S) 2 each PO HS [facility] Last Admin: 12/01/17 21:55 Dose: 2 each Sodium Chloride (Saline Flush) 10 ml IV BID [facility] Last Admin: 12/02/17 12:51 Dose: 10 ml 12/02/17 Much more alert today. Oxygen weaned further down to 5 L nasal cannula, maintaining O2 sats in the high 90s. Pleural chest tube discontinued. Chest x- ray reporting probable right lower lobe atelectasis/effusion. Underwent modified barium swallow, with recommendations of regular diet, thin liquids, chin tuck, no straw, small bites/sepsis/sips; no impairment with exception of mild transient penetration with thin liquids which patient independently cleared. Yesterday receive 1 unit of packed RBCs with current hemoglobin 8. Weaning of Primacor in progress. 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 Review of systems: CONSTITUTIONAL: No fever, no malaise, no fatigue. HEENT: No recent visual problems or hearing problems. Denied any sore throat. CARDIOVASCULAR: No chest pain, no palpitations, no syncope. PULMONARY: Minimal shortness of breath, no cough, no hemoptysis. GASTROINTESTINAL: No diarrhea, no nausea, no vomiting, no abdominal pain. Normoactive bowel sounds. NEUROLOGICAL: No headaches, no weakness, no numbness. HEMATOLOGICAL: Denies any bleeding or petechiae. GENITOURINARY: Denies any burning micturition, frequency, or urgency. MUSCULOSKELETAL/RHEUMATOLOGICAL: Denies any joint pain, swelling, or any muscle pain. ENDOCRINE: Denies any polyuria or polydipsia. PSYCHIATRIC: No anxiety, no depression The rest of the 14 point review of systems is negative Active Medications Generic Name Dose Route Start Last Admin Trade Name Freq PRN Reason Stop Dose Admin Hydrocodone Bitart/Acetaminophen 1 each 12/01/17 12:20 12/01/17 22:44 [place] 5-325 PO 1 each Q4HR PRN Administration MILD TO MODERATE Pain Hydrocodone Bitart/Acetaminophen 2 each 12/01/17 12:20 [place] 5-325 PO Q4HR PRN MODERATE TO SEVERE Pain Albuterol/Ipratropium 3 ml 11/25/17 20:00 12/02/17 15:06 Duoneb 0.5 Mg-3 Mg/3 Ml Soln INHALATION 3 ml RT-Q4H [facility] Administration Albuterol/Ipratropium 3 ml 11/26/17 17:53 12/01/17 18:09 Duoneb 0.5 Mg-3 Mg/3 Ml Soln INHALATION 3 ml RT-Q2H PRN Administration Shortness Of Breath Or Wheezing Amiodarone HCl 200 mg 11/29/17 21:00 12/02/17 08:10 Cordarone PO 200 mg BID [facility] Administration Aspirin 81 mg 11/26/17 10:15 12/02/17 08:10 Aspirin PO 81 mg DAILY [facility] Administration Atorvastatin Calcium 40 mg 11/26/17 09:00 12/02/17 08:10 Lipitor PO 40 mg DAILY [facility] Administration Benzocaine/Menthol 1 each 11/25/17 19:03 Cepacol Lozenge MUCOUS MEM Q2H PRN Sore Throat Bisacodyl 10 mg 11/26/17 17:52 Dulcolax RECTAL DAILY PRN Constipation Budesonide 1 mg 12/01/17 20:00 12/02/17 07:19 Pulmicort INHALATION 1 mg RT-BID [facility] Administration Fondaparinux 2.5 mg 11/30/17 11:30 12/02/17 08:10 Arixtra SQ 2.5 mg DAILY [facility] Administration Formoterol Fumarate 20 mcg 12/01/17 20:00 12/02/17 07:36 Perforomist INHALATION 20 mcg RT-BID [facility] Administration Norepinephrine Bitartrate 16 mg in 250 mls @ 0 mls/hr 11/26/17 04:15 11:58 Levophed-0.9% Nacl 16 Mg/250ml Pmx IV 0 mcg/min .Q0M [facility] 0 mls/hr Protocol Titration Titrate Sodium Chloride 1,000 mls @ 10 mls/hr 11/26/17 10:15 12/02/17 15:41 Saline 0.45% IV Not Given .Q24H [facility] Milrinone Lactate/Dextrose 20 100 mls @ 6.58 mls/hr 11/29/17 15:00 12/02/17 08:57 mg/ IV Solution IV 0.2 mcg/kg/min .[id number] [facility] 6.58 mls/hr 0.2 MCG/KG/MIN Administration Insulin Aspart 0 unit 11/29/17 12:00 12/02/17 12:53 Novolog SQ Not Given Q6HR [facility] Protocol Magnesium Hydroxide 2,400 mg 11/26/17 17:53 Milk Of Magnesia PO BID PRN Constipation Methylprednisolone Sodium Succinate 30 mg 12/01/17 16:00 12/02/17 08:10 Solu-Medrol IV 30 mg Q8HR [facility] Administration Metoprolol Tartrate 25 mg 12/02/17 09:00 12/02/17 08:59 Lopressor PO 25 mg BID [facility] Administration Miscellaneous Information 1 each 11/25/17 19:03 Magnesium Per Protocol MISCELLANE DAILY PRN Per Protocol Protocol Miscellaneous Information 1 each 11/25/17 19:03 Phosphorus Per Protocol MISCELLANE DAILY PRN Per Protocol Protocol Miscellaneous Information 1 each 11/25/17 19:03 Potassium Per Protocol MISCELLANE DAILY PRN Per Protocol Protocol Miscellaneous Information 1 each 11/29/17 12:01 Potassium Per Protocol MISCELLANE DAILY PRN Per Protocol Protocol Ondansetron HCl 4 mg 11/25/17 19:03 Zofran IVP Q6HR PRN Nausea And Vomiting Pantoprazole Sodium 40 mg 11/26/17 09:00 12/02/17 08:10 Protonix IVP 40 mg DAILY [facility] Administration Senna/Docusate Sodium 2 each 11/26/17 21:00 12/01/17 21:55 Senokot-S PO 2 each HS [facility] Administration Sodium Chloride 10 ml 11/25/17 21:00 12/02/17 12:51 Saline Flush IV 10 ml BID [facility] Administration 12/03/17 maintained on nebulized bronchodilators, steroids,patient tachypneic, requiring BiPap throughout today off and on. Chest x-ray suggestive of fluid overload. Received additional Lasix. Maintained on oral amiodarone, remains in a-flutter. Overdrive atrial pacing attempted unsuccessfully. Digoxin 2 ordered. Pacer wires discontinued today. Stool at bedside with PT OT, remains extremely weak. Primacor weaned off yesterday. 2017 currently in atrial fibrillation with heart rates up into the 150s, scheduled for cardioversion tomorrow. INR 2.2. Patient currently wearing BiPAP ,has required on and off all day. Chest ultrasound reporting bilateral pleural effusions, larger on the right. Thoracentesis on hold, awaiting cardioversion.Chest x-ray reporting prominent interstitium and central vascularity, increased bibasilar density. Attempting diuresing with Lasix and Zaroxolyn. Review systems unable to obtain as patient currently on BiPAP. Active Medications Hydrocodone Bitart/Acetaminophen ([place] 5-325) 1 each PO Q4HR PRN PRN Reason: MILD TO MODERATE Pain Last Admin: 12/07/17 10:48 Dose: 1 each Hydrocodone Bitart/Acetaminophen ([place] 5-325) 2 each PO Q4HR PRN PRN Reason: MODERATE TO SEVERE Pain Last Admin: 12/07/17 16:39 Dose: 2 each Albuterol/Ipratropium (Duoneb 0.5 Mg-3 Mg/3 Ml Soln) 3 ml INHALATION RT-Q2H PRN PRN Reason: Shortness Of Breath Or Wheezing Last Admin: 12/01/17 18:09 Dose: 3 ml Albuterol/Ipratropium (Duoneb 0.5 Mg-3 Mg/3 Ml Soln) 3 ml INHALATION RT-QID [facility] Last Admin: 12/07/17 16:43 Dose: 3 ml Amiodarone HCl (Cordarone) 200 mg PO BID [facility] Aspirin (Aspirin) 81 mg PO DAILY [facility] Last Admin: 12/07/17 08:53 Dose: 81 mg Atorvastatin Calcium (Lipitor) 40 mg PO DAILY [facility] Last Admin: 12/07/17 08:53 Dose: 40 mg Benzocaine/Menthol (Cepacol Lozenge) 1 each MUCOUS MEM Q2H PRN PRN Reason: Sore Throat Bisacodyl (Dulcolax) 10 mg RECTAL DAILY PRN PRN Reason: Constipation Budesonide (Pulmicort) 1 mg INHALATION RT-BID [facility] Last Admin: 12/07/17 08:36 Dose: 1 mg Escitalopram Oxalate (Lexapro) 10 mg PO HS [facility] Furosemide (Lasix) 40 mg IV Q12HR [facility] Last Admin: 12/07/17 08:33 Dose: 40 mg Piperacillin/Tazobactam/ (Dextrose 3.375 gm/ IV Solution) 50 mls @ 12.5 mls/hr IVPB Q8HR [facility] Last Admin: 12/07/17 16:39 Dose: 12.5 mls/hr Sodium Chloride (Saline 0.9%) 1,000 mls @ 20 mls/hr IV .Q24H [facility] Last Admin: 12/07/17 13:00 Dose: 20 mls/hr Lactated Ringer's (Lactated Ringers) 1,000 mls @ 20 mls/hr IV .Q24H [facility] Last Admin: 12/06/17 20:45 Dose: 20 mls/hr Insulin Aspart (Novolog) 0 unit SQ ACHS [facility] PRN Reason: Protocol Last Admin: 12/07/17 13:01 Dose: 2 unit Magnesium Hydroxide (Milk Of Magnesia) 2,400 mg PO BID PRN PRN Reason: Constipation Methylprednisolone Sodium Succinate (Solu-Medrol) 30 mg IV Q8HR [facility] Last Admin: 12/07/17 16:39 Dose: 30 mg Metolazone (Zaroxolyn) 5 mg PO DAILY [facility] Last Admin: 12/07/17 08:53 Dose: 5 mg Metoprolol Tartrate (Lopressor) 50 mg PO BID [facility] Last Admin: 12/07/17 08:53 Dose: 50 mg Miscellaneous Information (Magnesium Per Protocol) 1 each MISCELLANE DAILY PRN ; Protocol PRN Reason: Per Protocol Miscellaneous Information (Phosphorus Per Protocol) 1 each MISCELLANE DAILY PRN ; Protocol PRN Reason: Per Protocol Miscellaneous Information (Potassium Per Protocol) 1 each MISCELLANE DAILY PRN ; Protocol PRN Reason: Per Protocol Ondansetron HCl (Zofran) 4 mg IVP Q6HR PRN PRN Reason: Nausea And Vomiting Pantoprazole Sodium (Protonix) 40 mg PO AC-BRKFST [facility] Last Admin: 12/07/17 08:53 Dose: 40 mg Senna/Docusate Sodium (Senokot-S) 2 each PO HS [facility] Last Admin: 12/06/17 20:29 Dose: 2 each Sodium Chloride (Saline Flush) 10 ml IV BID [facility] Last Admin: 12/07/17 10:48 Dose: 10 ml 12/07/2017 Underwent successful cardioversion this morning,360J X1, remains in sinus rhythm. Currently wearing BiPAP. Nonproductive cough. Diuresing well on Lasix and Zaroxolyn with 24-hour I&O reflecting a negative fluid balance. Chest x-ray reporting stable bilateral areas of infiltrate and pleural effusions , possible CHF, possible pneumonia. INR 3.8, afebrile, WBC 17. Maintained on Zosyn. Sternal wound drainage, cultures sent. 12/08/2017 Cardioverted yesterday, remains in sinus rhythm .continues requiring BiPAP for majority of morning. Echo reporting-limited study for assessment of pericardial effusion, small generalized pericardial effusion, low normal LV function, EF 50-55%. Chest CT reporting sternal dehiscence, moderate to large pericardial effusion, possible mass effect onto the left ventricle, no significant right atrial dilatation to clearly indicate tamponade, moderate left pleural effusion with adjacent complete left lower lobar and inferior lingular collapse, small right pleural effusion, right basilar subsegmental atelectasis. Chest x-ray noted. Blood sugars controlled. INR 4.8, received vitamin K this morning. Diuresing well on Lasix IV push, Zaroxolyn. 24-hour I& O reflecting a negative fluid balance, decreased weight. Midsternal incision open, draining large amount of serosanguineous drainage. Currently maintained on Zosyn. Wound cultures pending. Afebrile. Review systems unable to obtain as patient currently on BiPAP. Active Medications Generic Name Dose Route Start Last Admin Trade Name Freq PRN Reason Stop Dose Admin Hydrocodone Bitart/Acetaminophen 1 each 12/01/17 12:20 12/08/17 06:26 [place] 5-325 PO 1 each Q4HR PRN Administration MILD TO MODERATE Pain Hydrocodone Bitart/Acetaminophen 2 each 12/01/17 12:20 12/08/17 18:41 [place] 5-325 PO 2 each Q4HR PRN Administration MODERATE TO SEVERE Pain Acetazolamide Sodium 250 mg 12/08/17 09:15 12/08/17 11:16 Diamox IV 12/08/17 21:01 250 mg Q12HR [facility] Administration Albuterol/Ipratropium 3 ml 11/26/17 17:53 12/08/17 05:16 Duoneb 0.5 Mg-3 Mg/3 Ml Soln INHALATION 3 ml RT-Q2H PRN Administration Shortness Of Breath Or Wheezing Albuterol/Ipratropium 3 ml 12/03/17 08:00 12/08/17 15:38 Duoneb 0.5 Mg-3 Mg/3 Ml Soln INHALATION 3 ml RT-QID [facility] Administration Amiodarone HCl 200 mg 12/08/17 09:00 12/08/17 08:24 Cordarone PO 200 mg BID [facility] Administration Aspirin 81 mg 11/26/17 10:15 12/08/17 08:24 Aspirin PO 81 mg DAILY [facility] Administration Atorvastatin Calcium 40 mg 11/26/17 09:00 12/08/17 08:25 Lipitor PO 40 mg DAILY [facility] Administration Benzocaine/Menthol 1 each 11/25/17 19:03 Cepacol Lozenge MUCOUS MEM Q2H PRN Sore Throat Bisacodyl 10 mg 11/26/17 17:52 Dulcolax RECTAL DAILY PRN Constipation Budesonide 1 mg 12/01/17 20:00 12/08/17 09:26 Pulmicort INHALATION 1 mg RT-BID [facility] Administration Escitalopram Oxalate 10 mg 12/07/17 21:00 12/07/17 20:10 Lexapro PO 10 mg HS [facility] Administration Piperacillin/Tazobactam/ 50 mls @ 12.5 mls/hr 12/04/17 16:00 12/08/17 16:11 Dextrose 3.375 gm/ IV Solution IVPB 12.5 mls/hr Q8HR [facility] Administration Sodium Chloride 1,000 mls @ 20 mls/hr 12/06/17 10:45 12/08/17 13:47 Saline 0.9% IV Not Given .Q24H [facility] Insulin Aspart 0 unit 12/02/17 21:00 12/08/17 17:46 Novolog SQ 1 unit ACHS [facility] Administration Protocol Magnesium Hydroxide 2,400 mg 11/26/17 17:53 Milk Of Magnesia PO BID PRN Constipation Metoprolol Tartrate 50 mg 12/06/17 21:00 12/08/17 08:24 Lopressor PO 50 mg BID [facility] Administration Miscellaneous Information 1 each 11/25/17 19:03 Magnesium Per Protocol MISCELLANE DAILY PRN Per Protocol Protocol Miscellaneous Information 1 each 11/25/17 19:03 Phosphorus Per Protocol MISCELLANE DAILY PRN Per Protocol Protocol Miscellaneous Information 1 each 11/25/17 19:03 Potassium Per Protocol MISCELLANE DAILY PRN Per Protocol Protocol Ondansetron HCl 4 mg 11/25/17 19:03 Zofran IVP Q6HR PRN Nausea And Vomiting Pantoprazole Sodium 40 mg 12/05/17 07:30 12/08/17 08:25 Protonix PO 40 mg AC-BRKFST [facility] Administration Senna/Docusate Sodium 2 each 11/26/17 21:00 12/07/17 20:16 Senokot-S PO 2 each HS [facility] Administration Sodium Chloride 10 ml 11/25/17 21:00 12/08/17 11:16 Saline Flush IV 10 ml BID [facility] Administration 12/09/17 Remains in sinus rhythm. mostly BiPAP dependent. Incentive spirometer up to 700 -750. Chest x-ray reporting improving moderate pleural effusion, cardiomegaly. Sternal wound culture positive for gram-negative bacilli. Maintained on Zosyn. Diet intake fair. Blood sugars controlled. Review systems unable to be performed as patient on BiPAP Active Medications Hydrocodone Bitart/Acetaminophen ([place] 5-325) 1 each PO Q4HR PRN PRN Reason: MILD TO MODERATE Pain Last Admin: 12/09/17 10:03 Dose: 1 each Hydrocodone Bitart/Acetaminophen ([place] 5-325) 2 each PO Q4HR PRN PRN Reason: MODERATE TO SEVERE Pain Last Admin: 12/09/17 14:51 Dose: 2 each Albuterol/Ipratropium (Duoneb 0.5 Mg-3 Mg/3 Ml Soln) 3 ml INHALATION RT-Q2H PRN PRN Reason: Shortness Of Breath Or Wheezing Last Admin: 12/08/17 05:16 Dose: 3 ml Albuterol/Ipratropium (Duoneb 0.5 Mg-3 Mg/3 Ml Soln) 3 ml INHALATION RT-QID [facility] Last Admin: 12/09/17 15:42 Dose: 3 ml Amiodarone HCl (Cordarone) 200 mg PO BID [facility] Last Admin: 12/09/17 08:12 Dose: 200 mg Aspirin (Aspirin) 81 mg PO DAILY [facility] Last Admin: 12/09/17 08:13 Dose: 81 mg Atorvastatin Calcium (Lipitor) 40 mg PO DAILY [facility] Last Admin: 12/09/17 08:13 Dose: 40 mg Benzocaine/Menthol (Cepacol Lozenge) 1 each MUCOUS MEM Q2H PRN PRN Reason: Sore Throat Bisacodyl (Dulcolax) 10 mg RECTAL DAILY PRN PRN Reason: Constipation Budesonide (Pulmicort) 1 mg INHALATION RT-BID [facility] Last Admin: 12/09/17 07:45 Dose: 1 mg Escitalopram Oxalate (Lexapro) 10 mg PO HS [facility] Last Admin: 12/08/17 20:33 Dose: 10 mg Piperacillin/Tazobactam/ (Dextrose 3.375 gm/ IV Solution) 50 mls @ 12.5 mls/hr IVPB Q8HR [facility] Last Admin: 12/09/17 08:16 Dose: 12.5 mls/hr Sodium Chloride (Saline 0.9%) 1,000 mls @ 20 mls/hr IV .Q24H [facility] Last Admin: 12/09/17 08:17 Dose: 20 mls/hr Insulin Aspart (Novolog) 0 unit SQ ACHS [facility] PRN Reason: Protocol Last Admin: 12/09/17 12:23 Dose: Not Given Magnesium Hydroxide (Milk Of Magnesia) 2,400 mg PO BID PRN PRN Reason: Constipation Metoprolol Tartrate (Lopressor) 50 mg PO BID [facility] Last Admin: 12/09/17 08:13 Dose: 50 mg Miscellaneous Information (Magnesium Per Protocol) 1 each MISCELLANE DAILY PRN ; Protocol PRN Reason: Per Protocol Miscellaneous Information (Phosphorus Per Protocol) 1 each MISCELLANE DAILY PRN ; Protocol PRN Reason: Per Protocol Miscellaneous Information (Potassium Per Protocol) 1 each MISCELLANE DAILY PRN ; Protocol PRN Reason: Per Protocol Ondansetron HCl (Zofran) 4 mg IVP Q6HR PRN PRN Reason: Nausea And Vomiting Pantoprazole Sodium (Protonix) 40 mg PO AC-BRKFST [facility] Last Admin: 12/09/17 08:11 Dose: 40 mg Senna/Docusate Sodium (Senokot-S) 2 each PO HS [facility] Last Admin: 12/08/17 20:37 Dose: 2 each Sodium Chloride (Saline Flush) 10 ml IV BID [facility] Last Admin: 12/09/17 08:13 Dose: 10 ml 12/13/17 maintained on Merrem and vancomycin. BiPAP dependent. Worsening chest x-ray, chest CT reporting near complete collapse of left lung, enlarging moderate to large pericardial effusion. Echo pending. Multiple episodes of diarrhea. Atrial flutter with RVR, Review systems unable to be performed as patient on BiPAP Active Medications Generic Name Dose Route Start Last Admin Trade Name Freq PRN Reason Stop Dose Admin Hydrocodone Bitart/Acetaminophen 1 each 12/01/17 12:20 12/13/17 08:08 [place] 5-325 PO 1 each Q4HR PRN Administration MILD TO MODERATE Pain Hydrocodone Bitart/Acetaminophen 2 each 12/01/17 12:20 12/13/17 15:08 [place] 5-325 PO 2 each Q4HR PRN Administration MODERATE TO SEVERE Pain Albuterol/Ipratropium 3 ml 11/26/17 17:53 12/08/17 05:16 Duoneb 0.5 Mg-3 Mg/3 Ml Soln INHALATION 3 ml RT-Q2H PRN Administration Shortness Of Breath Or Wheezing Albuterol/Ipratropium 3 ml 12/03/17 08:00 12/13/17 16:02 Duoneb 0.5 Mg-3 Mg/3 Ml Soln INHALATION Not Given RT-QID [facility] Amiodarone HCl 200 mg 12/11/17 20:00 12/13/17 09:12 Cordarone PO 200 mg BID@0800,2000 [facility] Administration Aspirin 81 mg 11/26/17 10:15 12/13/17 09:13 Aspirin PO 81 mg DAILY [facility] Administration Atorvastatin Calcium 40 mg 11/26/17 09:00 12/13/17 09:13 Lipitor PO 40 mg DAILY [facility] Administration Benzocaine/Menthol 1 each 11/25/17 19:03 Cepacol Lozenge MUCOUS MEM Q2H PRN Sore Throat Bisacodyl 10 mg 11/26/17 17:52 12/12/17 17:45 Dulcolax RECTAL 10 mg DAILY PRN Administration Constipation Budesonide 1 mg 12/01/17 20:00 12/13/17 07:46 Pulmicort INHALATION 1 mg RT-BID [facility] Administration Escitalopram Oxalate 10 mg 12/07/17 21:00 12/12/17 20:16 Lexapro PO 10 mg HS [facility] Administration Heparin Sodium (Porcine) 5,000 unit 12/10/17 16:00 12/13/17 09:14 Heparin SQ 5,000 unit Q8HR [facility] Administration Sodium Chloride 1,000 mls @ 20 mls/hr 12/06/17 10:45 12/13/17 09:49 Saline 0.9% IV 20 mls/hr .Q24H [facility] Administration Meropenem 1 gm/ Sodium 100 mls @ 100 mls/hr 12/09/17 22:00 12/13/17 09:46 Chloride IVPB 100 mls/hr Q8HR [facility] Administration Vancomycin HCl 1,750 mg/ 250 mls @ 125 mls/hr 12/13/17 14:00 12/13/17 14:15 Sodium Chloride IVPB 125 mls/hr Q12HR@0000,1200 [facility] Administration Insulin Aspart 0 unit 12/02/17 21:00 12/13/17 12:34 Novolog SQ Not Given ACHS [facility] Protocol Lactobacillus Acidoph/Bulgaricus 1 each 12/13/17 16:00 Lactinex PO TID [facility] Magnesium Hydroxide 2,400 mg 11/26/17 17:53 Milk Of Magnesia PO BID PRN Constipation Metoprolol Tartrate 50 mg 12/11/17 22:00 12/13/17 09:13 Lopressor PO 50 mg BID@1000,2200 [facility] Administration Miscellaneous Information 1 each 11/25/17 19:03 Magnesium Per Protocol MISCELLANE DAILY PRN Per Protocol Protocol Miscellaneous Information 1 each 11/25/17 19:03 Phosphorus Per Protocol MISCELLANE DAILY PRN Per Protocol Protocol Miscellaneous Information 1 each 11/25/17 19:03 Potassium Per Protocol MISCELLANE DAILY PRN Per Protocol Protocol Ondansetron HCl 4 mg 11/25/17 19:03 Zofran IVP Q6HR PRN Nausea And Vomiting Pantoprazole Sodium 40 mg 12/05/17 07:30 12/13/17 09:13 Protonix PO 40 mg AC-BRKFST [facility] Administration Senna/Docusate Sodium 2 each 11/26/17 21:00 12/12/17 20:16 Senokot-S PO 2 each HS [facility] Administration Sodium Chloride 10 ml 11/25/17 21:00 12/13/17 09:49 Saline Flush IV 10 ml BID [facility] Administration 12/14/17 maintained on Merrem and vancomycin per infectious disease .remains BiPAP dependent. Chest x-ray reporting persistent significant left lung collapse with minimal improvement. Scheduled for bronchoscopy this afternoon. INR 2.1, receiving FFP. No diarrhea today. Telemetry atrial fibrillation/ flutter, heart rate 110s to 120s. 12/15/2017 developed worsened respiratory distress despite BiPAP, diuretics, antiarrhythmics, intubated last night. Received 2 more units of FFP this morning, underwent bronchoscopy this morning; mucous plug discovered in the left lower lobe. Pleural Cultures pending. Maintained on FiO2 45%/+5 of PEEP. Continues on IV antibiotics. Currently on 2 mics of Levophed and diprovan drips. Atrial tachycardia, heart rate in the 130s. Amiodarone discontinued as per cardiology. Developed increased bleeding from wound VAC with turning during bath-Anticoagulation placed on hold. Afebrile. 12/16/17 remains vent dependent, FiO2 40%/+5 of PEEP. Sedated on Diprovan. Requiring low-dose of Levophed. Marginal urine output, received albumin last night. Tachycardia resolved, sinus rhythm per telemetry. Wound VAC dressing changed today, serosanguineous drainage. Bronchoscopy yesterday, cultures pending. Blood sugars controlled. 12/17/2017 today weaning trials of pressure support in increments of 3 hours , resting at night, FiO2 40%/+5 of PEEP. Chest x-ray reporting improvement. Currently on Levophed. Tolerating tube feeds at goal with minimal to no residual. Maintained on IV antibiotics as per infectious disease. Telemetry sinus rhythm. 12/20/17 remains vent dependent FiO2 40%/PEEP of 5. Yesterday vent weaning during the day hours, tolerated well. Wound VAC changed yesterday. Scheduled for sternal flap repair tomorrow. Maintained on IV antibiotics. T-max 99.4. Last night returned into rapid atrial flutter, Currently sinus rhythm. 12/21/2017 remains vent dependent. Telemetry sinus rhythm. Tube feeds on hold. Scheduled for sternal flap repair today. 12/22/2017 underwent flap repair/grafting yesterday with plastic surgeon. Pain controlled. Extubated this morning, maintained on BiPAP. Telemetry sinus rhythm. Albumin remains at 2.2, receiving albumin. 12/23/17 .Patient respiratory arrested while Dobbhoff attempting to be placed, returned into atrial fibrillation with RVR. Reintubated, converted back into sinus rhythm. Midsternal dressing being changed at bedside by cardiothoracic surgery. Trach and PEG being discussed as per pulmonary. 12/24/17 scheduled for tracheostomy this morning. Chest x-ray reporting progressive CHF change with bilateral effusions possible underlying pneumonia, ET tube 1 cm above osvaldo. Telemetry sinus rhythm. Levophed currently on hold. 12/27/2017 Dobbhoff recently placed, developed nausea vomiting throughout the night. Abdomen distended, tympanic.Tube feeds placed on hold, flat plate of abdomen pending. PEG tube being discussed. Passing loose stools. Denies abdominal pain .Telemetry sinus rhythm. Maintained on FiO2 35%/+ of PEEP. Tolerated CPAP for 3 hours yesterday. Yesterday and today patient received Lasix IV push, diuresed well with 24-hour I&O reflecting a negative fluid balance. Chest x-ray reporting similar findings. T-max 99.2. 12/28/2017 maintained on IV antibiotics, significant wound drainage. Afebrile. remains vent dependent, FiO2 35%/+5 of PEEP. Chest x-ray stable. Yesterday abdominal x-ray reported possible underlying ileus, obstruction. Dobbhoff tube feeds placed on hold. Follow-up Abdominal x-ray this morning reporting markedly dilated small bowel loops ,severe postoperative ileus with partial obstruction. Abdomen distended. Weaning parameters suboptimal ,no weaning trials today as per pulmonary. Hemoglobin 7.anasarca, weeping .receiving Albumin , Lasix IV push 1. 12/29/17 maintained on vancomycin, Merrem. abdomen less distended today.small bowel movements 2 yesterday, on lactulose. TPN to be initiated today. Wound VAC /dressing changed this a.m.remains vent dependent and 35% FiO2/+5 of PEEP.pressure-support 2hr.hemoglobin 7.2.evaluated by general surgery with recommendations of no abdominal surgical intervention at this time. 12/30/2017.returned into atrial flutter last night, heart rates up to the 130s, currently heart rate in the 120s. Continues on Beta krunal,amiodarone and Cardizem.tolerating TPN.hemoglobin 7.1, potassium 3.1, being supplemented by ICU replacement protocol.afebrile.Dobhoff with tube feeds at low rate initiated. 12/31/17 remains vent dependent, FiO2 35%/+5 of PEEP. Telemetry atrial fib/ aflutter heart rates in the 140s. TPN infusing. Failed Dobhoff trial this morning, Flat plate reporting gas-filled loops of bowel without evident pneumoperitoneum. Abdomen distended, Dobbhoff discontinued, NG tube placed. Passing flatus. 01/04/2018 remains vent dependent, tolerated SIMV 12 hours yesterday.currently on 35% FiO2/+5 of PEEP. PEG tube scheduled for tomorrow. Telemetry A. fib flutter 120s with repeat cardioversion being discussed once patient therapeutic. Select specialty Possibly early next week. 01/05/18 successful PEG tube placement today. Telemetry sinus rhythm to atrial flutter, rate better controlled currently in the 110s. Potential cardioversion being discussed. Patient stated at the bedside with 4 person assist. Remains vent dependent on 35% FiO2/+5 of PEEP. Chest x-ray reporting left perihilar infiltrate, left lower lobe atelectasis. 01/06/18 maintained on anticoagulation, cardioversion pending. Currently weaning on CPAP trial. PEG tube feedings initiated, tolerating well. Telemetry atrial flutter/sinus tach heart rates in the 110s. Sat up at bedside with outpatient facility physical therapist. Objective - Vital Signs Vital signs: Vital Signs Temp 98.1 F 01/06/18 12:00 Pulse 109 H 01/06/18 16:00 Resp 16 01/06/18 16:00 BP 106/58 01/04/18 08:59 Pulse Ox 96 01/06/18 16:00 Intake & Output 01/05/18 01/06/18 01/06/18 18:59 06:59 18:59 Intake Total 453 169 890 Output Total 605 1765 1250 Balance -152 -1596 -360 Weight 100.6 kg 97.3 kg Intake: IV 393 169 580 Dextrose 5%-0.45% NaCl 1, 110 130 100 000 ml @ 10 mls/hr IV . Q24H [facility] Rx#:[id number] Meropenem 1 gm In Sodium 200 200 Chloride 0.9% 100 ml @ 200 mls/hr IVPB Q8HR [facility] Rx#:[id number] Pressure Bag 33 39 30 Vancomycin 1,500 mg In 250 Sodium Chloride 0.9% 250 ml @ 125 mls/hr IVPB Q36H [facility] Rx#:[id number] Oral 60 Tube Feeding 250 Other 60 Output: Drainage 200 1400 700 Right Abdomen 200 1400 700 Urine 405 365 550 Other: Voiding Method Indwelling Catheter Indwelling Catheter Indwelling Catheter ABP, PAP, CO, CI - Last Documented Arterial Blood Pressure 99/58 Pulmonary Artery Pressure 38/33 Cardiac Output 5.8 Cardiac Index 2.9 - Exam PHYSICAL EXAM: VITAL SIGNS: As above GENERAL: Sitting up in bed, on mechanical ventilation HEENT: Conjunctivae normal. eyes normal. NECK: No JVD. Tracheostomy tube present CARDIOVASCULAR: S1, S2 muffled , tachycardic,no gallops, no murmurs RESPIRATION: Breath sounds diminished in the bases,coarse. Sternal wound VAC dressing present. ABDOMEN: Softer, nondistended, right-sided abdominal dressing clean dry, PEG tube present, positive bowel sounds Extremities: Improving edema PSYCHIATRY:/NERVOUS SYSTEM: Unable to assess as patient on mechanical ventilation, Skin: Midsternal dressing clean dry and intact, right medial buttock & right buttock with barrier Cream applied, right wrist area ulcerations-dressing clean dry and intact.posterior scalp with pressure ulceration -scabbed ,resting on a offload- cushion - Labs CBC & Chem 7: 01/06/18 05:10 01/06/18 05:10 Labs: Abnormal Lab Results - Last 24 Hours (Table) 01/06/18 01/06/18 01/06/18 Range/Units 05:10 05:10 05:10 WBC 11.4 H (3.8-10.6) k/uL RBC 2.94 L (3.80-5.40) m/uL Hgb 8.0 L (11.4-16.0) gm/dL Hct 25.8 L (34.0-46.0) % RDW 20.7 H (11.5-15.5) % Neutrophils # 9.7 H (1.3-7.7) k/uL Lymphocytes # 0.7 L (1.0-4.8) k/uL INR 1.2 H (<1.2) ABG pH (7.35-7.45) ABG pO2 (83-108) mmHg ABG HCO3 (21-25) mmol/L ABG Total CO2 (19-24) mmol/L ABG O2 Saturation (94-97) % BUN 38 H (7-17) mg/dL 01/06/18 Range/Units 08:14 WBC (3.8-10.6) k/uL RBC (3.80-5.40) m/uL Hgb (11.4-16.0) gm/dL Hct (34.0-46.0) % RDW (11.5-15.5) % Neutrophils # (1.3-7.7) k/uL Lymphocytes # (1.0-4.8) k/uL INR (<1.2) ABG pH 7.49 H (7.35-7.45) ABG pO2 116 H (83-108) mmHg ABG HCO3 28 H (21-25) mmol/L ABG Total CO2 30 H (19-24) mmol/L ABG O2 Saturation 99.1 H (94-97) % BUN (7-17) mg/dL Microbiology - Last 24 Hours (Table) 01/02/18 06:00 Stool Culture - Final Stool 12/15/17 10:40 Acid Fast Bacilli Smear - Final Bronchial Washings - Left Acid Fast Bacilli Culture - Preliminary 12/10/17 10:45 Acid Fast Bacilli Smear - Final Chest Acid Fast Bacilli Culture - Preliminary 12/10/17 10:50 Acid Fast Bacilli Smear - Final Chest Acid Fast Bacilli Culture - Preliminary Assessment and Plan Assessment: 1. Status post CABG with mitral valve replacement 2. Acute blood loss anemia with massive blood transfusions postoperatively, in a patient with history of GI bleed,multifactorial 3. Hypertension 4. Left subclavian stenosis 5. Proximal atrial fibrillation/flutter status post cardioversion with recurrence of atrial fibrillation 6. Acute Hypoxic respiratory failure, Re intubated x2. Status post tracheostomy 7. Obesity, BMI 41.6 8. S/P PICC line placement 9. 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 Acute UTI Serratia marcescens, E. coli 11. Bilateral pleural effusions, improved with diuretics. Possible aspiration pneumonia, possible fluid overload. 12. Sternal wound debridement, culture growing Serratia marcescens, status post wound VAC. Status post sternal flap grafting. 13. Pressure ulceration of back and buttocks, stage III 14. Diarrhea, ruling out C. difficile colitis. 15. Status post bronchoscopy with left lower lobe mucous plug discovered 16. ileus, improving 17. TPN 18. Status post PEG tube placement Plan: Continue on current medication regime , amiodarone, metoprolol ,reglan, monitoring and symptomatic treatment. PEG tube feedings being initiated, maintain strict aspiration precautions. Repeat cardioversion pending. Maintain IV antibiotics, nebulized bronchodilators, steroids. selective care specialty possibly next week. Prognosis guarded given multiple complex medical issues. The impression and plan of care has been dictated as directed. : I performed a history and examination of this patient, discussed the same with the dictator. I agree with the dictator's note ,documented as a scribe. Any additional findings or plans will be noted.
[2018-01-06] MEDS: ESCITALOPRAM 10 MG TAB PO SCH (20:22)
[2018-01-06] MEDS: SENNOSIDES-DOCUSATE SODIUM 1 EACH TAB PO SCH (20:24)
--- NOTE | 2018-01-06 22:30 | P.PN ---
Subjective Progress Note Date: 01/06/18 Principal diagnosis: Sternal wound dehiscence Pleasant 67-year-old female who has an extensive past medical history who is now 14 days postoperative from her open heart procedure it which point in time a mitral valve placement occurred, reverse saphenous vein coronary artery bypass grafting 1 to obtuse marginal, Maze procedure and ligation of the left atrial appendage all occurred interoperatively left ventricular wall tear occurred and was repaired. The patient has a known history of multiple medical troubles before her surgery that included her obesity, COPD and marked deconditioning. Patient has had difficulties recently that included urinary tract infection with E. coli and Serratia and has been treated with intravenous antibiotic therapy with Zosyn. She was having some improvement but then developed dehiscence of her sternal wound and there are plans for surgical debridement tomorrow wound culture showing gram-negative bacilli and with at the infectious diseases consultation was requested. The patient continues to have significant respiratory difficulties and is currently on BiPAP for support. Postoperatively the patient was hemodynamically unstable which made even turning of the patient not possible which has resulted in unavoidable areas of skin breakdown, that are now treatable given her improvement 12/10/2017 reveals the patient to be postoperative from the sternal wound debridement. The surgical note as well as discussion with the surgical team reveals evidence of poor bone quality and all of the sternal wires had pulled through her bony areas. Negative pressure therapy is in place. She is tolerating this well. Plastic surgery consult has been requested for reconstruction of her chest in the near future. Gram-negative bacilli growing from the sternal wound. She is quite comfortable after procedure, chest tube was placed of the left cavity and this is improved some left lung function and she seems less short of breath. The daughter is present and her questions were answered. 12/11/2017 reveals the patient to have had some respiratory distress today and is back on BiPAP at this time. She relates that her pain is under much significant control. Been no other new acute complaints are being made. 12/13/2017 the patient remains in the ICU she is currently on BiPAP but relates that she is quite comfortable. We will work with the nursing staff to change her VAC dressing at this time. await the plastic surgery timeline. 12/15/2017 reveals the patient to remain in intensive care unit, her status has worsened and that she developed flash pulmonary edema and respiratory failure requiring reintubation sedation mechanical ventilation. She underwent bronchoscopy today for removal of mucous plugs and to help with the collapsed left lower lobe. The patient has require some vasopressor support but is more stable this afternoon than earlier. She is sedated and comfortable. She has significant decline of hemoglobin is 7.6. Anticoagulation was held. Is being closely monitored by surgery and they await the plastic surgery intervention. 12/16/2017 cases briefly discussed with the cardiothoracic nurse practitioner in that the wound VAC is being changed today. It is unchanged with no difficulties. No further bleeding is noted. Plastic surgery evaluation apparently will occur tomorrow so the surgical plan can be devised. 12/20/2017 since last visit current thoracic has again change the wound VAC without difficulties. She tolerated it well. She remains on the ventilator at this point in time, does not appear to have any plans for weaning because she will have her plastic closure over open chest tomorrow. She's been hemodynamically stable with intermittent atrial flutter. No significant changes of oxygen requirements, drainage from the wound VAC is minimal as is drainage from her chest tube. 12/21/2017 patient is status post the partial plastic closure of her sternal wound. Complete cardiac coverage occurred but only partial closure was possible. Oxygen requirements are improving postoperative and is being closely watched for any further blood loss anemia. 12/23/2017 reveals the patient to be extubated on BiPAP. She is comfortable with her pain level is about a 2. Shortness of breath is not severe. She is unable to eat and a Dobbhoff will be placed a bit later today to help her with nutritional status to help her recovery. The current situation is discussed with the cardiothoracic surgeon team 12/24/2017 reveals evidence of the changes status in that she has now had a tracheostomy applied due to her chronic respiratory failure. Cardiothoracic surgery has changed the dressing today. Patient is comfortable after her surgery. Denies new acute discomforts. 12/25/2017 reveals that the patient is doing well with her tracheostomy. She is on 35% FiO2 with excellent saturations. The patient relates that she is comfortable her pain level is no more than a 4. She is receiving feedings via the Dobbhoff is tolerating that well but is having a few soft stools without swapnil diarrhea. 12/27/2017 patient remained stable after tracheostomy. With pain level is no more than a 2 at this point in time. Feedings via the Dobbhoff are going well. The wound VAC dressing was changed today without difficulties. Leukocytosis is improving. No hypotension. 12/28/2017. Overall the patient has been stable and that her pulmonary status without acute change. Doing well with the tracheostomy. Patient however developed significant abdominal distention with a tympanic abdomen. Abdominal x -ray revealed evidence of ileus. She's been seen by general surgery and they will determine if she needs an NG tube based on x-rays. She apparently is more comfortable this evening that she was earlier in the day. Nursing staff relates no fevers. 12/29/2017 patient is stable. Not having new acute difficulties. Is noted did have a pressure ulceration to the posterior aspect of the scalp that is being treated with a fall offloading cushion. Patient is actually quite comfortable today. Her ileus is starting to improve. Surgery he has no plans for surgical intervention into the abdomen. Is tolerating TPN. 12/30/2017 the patient is stable. She is doing well with her physical therapy and her antibiotic therapy for the sternal wound dehiscence. Ileus is improving and tolerating her TPN well. 12/31/2017 patient has been seen by the cardiothoracic team and wound VAC was changed without difficulty. She is having significant ongoing atrial flutter and has been seen by cardiology and they await medication effect for spontaneous transition back to a normal sinus mechanism that she has done the past. Patient is mildly short of breath but does well on the current ventilator settings. Her pain level is no more than a 2 and she is doing well with her physical therapy. NG tube was placed and this has given her relief of her distention and discomfort from her ileus 01/03/2018 patient is comfortable today. She has an IMV ventilation and other than some tiredness she relates she is doing well. Her pain level is 0. No difficulty with the recent dressing changes. Tolerating tube feeding at this point in time without abdominal pain. She is tolerating tube feeds well at this time. 01/04/2018 patient is comfortable doing well tolerated CPAP for 8 hours a day. We'll have her PEG tube placed tomorrow which will then allow the next set of changes hopefully with anticoagulation, cardioversion and then placement to vent facility. 01/05/2018 patient is had her PEG tube placed today. Other than some pain at that site she's doing relatively well. Spirits are good and she looks forward to transitioning to a new facility for chronic weaning and eventual removal of her trach. His related that today there was a moment of standing with multiple person assist. 01/06/2018 patient is still having some postoperative pain from the PEG tube that was placed. Other than That she is doing relatively well. Anticoagulation is started. When she is therapeutic cardioversion will occur and then hopefully transition to the chronic vent facility for long-term weaning. Objective - Vital Signs Vital signs: Vital Signs Temp 98.6 F 01/06/18 20:00 Pulse 110 H 01/06/18 21:00 Resp 20 01/06/18 21:00 BP 106/58 01/04/18 08:59 Pulse Ox 99 01/06/18 21:00 Intake & Output 01/06/18 01/06/18 01/07/18 06:59 18:59 06:59 Intake Total 169 976 56 Output Total 1765 1950 130 Balance -1596 -974 -74 Weight 97.3 kg Intake: IV 169 606 26 Dextrose 5%-0.45% NaCl 1, 130 120 20 000 ml @ 10 mls/hr IV . Q24H [facility] Rx#:[id number] Meropenem 1 gm In Sodium 200 Chloride 0.9% 100 ml @ 200 mls/hr IVPB Q8HR [facility] Rx#:[id number] Pressure Bag 39 36 6 Vancomycin 1,500 mg In 250 Sodium Chloride 0.9% 250 ml @ 125 mls/hr IVPB Q36H [facility] Rx#:[id number] Tube Feeding 310 30 Other 60 Output: Drainage 1400 1225 60 Right Abdomen 1400 1225 60 Urine 365 725 70 Other: Voiding Method Indwelling Catheter Indwelling Catheter Indwelling Catheter ABP, PAP, CO, CI - Last Documented Arterial Blood Pressure 102/61 Pulmonary Artery Pressure 38/33 Cardiac Output 5.8 Cardiac Index 2.9 - Exam Obese 67-year-old woman who is now extubated on BiPAP HEENT: Anicteric conjunctiva are pink and moist nasal mucosa grossly intact without significant lesions, there is no thrush. Oral mucosa is dry but no swapnil lesions could be seen, NG tube is now placed. Neck: The neck is supple without significant lymphadenopathy or thyromegaly. Tracheostomy intact without bleeding there is evidence of the posterior scalp lesion please refer to the nursing photography. Lungs: Symmetrical air entry is noted. There is scattered crackles but no swapnil bronchial sounds Heart: Irregular with an audible S1 and S2 soft S4 no audible murmur no click or rub Chest: The patient's mid sternotomy incision is now covered with a postoperative dressing from the plastic closure which is reported to be a partial flap closure Abdomen: Obese, Positive bowel sounds soft and nontender without palpable masses or organomegaly. There was no guarding or rebound. Distention is slightly improved with initiation of the nasogastric tube and suction. Symptomatically she feels better Extremities: The upper and lower extremities have evidence of edema harvest site is intact there is some bruising that is noted especially on the left groin area. IV sites are intact. Skin: With the nursing staff the buttocks pressure ulcerations are evaluated which are showing improvement. The ulceration on the skin fold above her buttocks is also evaluated and appears to be improving. Also improvement of the ulceration to the right wrist area. Skin however is now having some blistering due to her hypoalbuminemia and excessive volume. Sternal wound dressing is dry and intact. Neuro: Comfortable at this time pain level 5 after the PEG tube placement, no acute changes neurologically - Labs CBC & Chem 7: 01/06/18 05:10 01/06/18 05:10 Labs: Abnormal Lab Results - Last 24 Hours (Table) 01/06/18 01/06/18 01/06/18 Range/Units 05:10 05:10 05:10 WBC 11.4 H (3.8-10.6) k/uL RBC 2.94 L (3.80-5.40) m/uL Hgb 8.0 L (11.4-16.0) gm/dL Hct 25.8 L (34.0-46.0) % RDW 20.7 H (11.5-15.5) % Neutrophils # 9.7 H (1.3-7.7) k/uL Lymphocytes # 0.7 L (1.0-4.8) k/uL INR 1.2 H (<1.2) ABG pH (7.35-7.45) ABG pO2 (83-108) mmHg ABG HCO3 (21-25) mmol/L ABG Total CO2 (19-24) mmol/L ABG O2 Saturation (94-97) % BUN 38 H (7-17) mg/dL 01/06/18 Range/Units 08:14 WBC (3.8-10.6) k/uL RBC (3.80-5.40) m/uL Hgb (11.4-16.0) gm/dL Hct (34.0-46.0) % RDW (11.5-15.5) % Neutrophils # (1.3-7.7) k/uL Lymphocytes # (1.0-4.8) k/uL INR (<1.2) ABG pH 7.49 H (7.35-7.45) ABG pO2 116 H (83-108) mmHg ABG HCO3 28 H (21-25) mmol/L ABG Total CO2 30 H (19-24) mmol/L ABG O2 Saturation 99.1 H (94-97) % BUN (7-17) mg/dL Microbiology - Last 24 Hours (Table) 01/02/18 06:00 Stool Culture - Final Stool 12/15/17 10:40 Acid Fast Bacilli Smear - Final Bronchial Washings - Left Acid Fast Bacilli Culture - Preliminary 12/10/17 10:45 Acid Fast Bacilli Smear - Final Chest Acid Fast Bacilli Culture - Preliminary 12/10/17 10:50 Acid Fast Bacilli Smear - Final Chest Acid Fast Bacilli Culture - Preliminary Laboratory Results WBC 11.4 k/uL (3.8-10.6) H 01/06/18 05:10 RBC 2.94 m/uL (3.80-5.40) L 01/06/18 05:10 Hgb 8.0 gm/dL (11.4-16.0) L 01/06/18 05:10 Hct 25.8 % (34.0-46.0) L 01/06/18 05:10 MCV 87.7 fL (80.0-100.0) 01/06/18 05:10 MCH 27.4 pg (25.0-35.0) 01/06/18 05:10 MCHC 31.2 g/dL (31.0-37.0) 01/06/18 05:10 RDW 20.7 % (11.5-15.5) H 01/06/18 05:10 Plt Count 269 k/uL (150-450) 01/06/18 05:10 Neutrophils % 85 % 04/05/18 05:10 Neutrophils % (Manual) 98 % 12/05/17 04:25 Lymphocytes % 6 % 01/06/18 05:10 Lymphocytes % (Manual) 1 % 12/05/17 04:25 Monocytes % 5 % 01/06/18 05:10 Monocytes % (Manual) 1 % 12/05/17 04:25 Eosinophils % 2 % 01/06/18 05:10 Basophils % 0 % 01/06/18 05:10 Myelocytes % 1 % 12/03/17 04:15 Neutrophils # 9.7 k/uL (1.3-7.7) H 01/06/18 05:10 Neutrophils # (Manual) 26.95 k/uL (1.3-7.7) H 12/05/17 04:25 Lymphocytes # 0.7 k/uL (1.0-4.8) L 01/06/18 05:10 Lymphocytes # (Manual) 0.28 k/uL (1.0-4.8) L 12/05/17 04:25 Monocytes # 0.6 k/uL (0-1.0) 01/06/18 05:10 Monocytes # (Manual) 0.28 k/uL (0-1.0) 12/05/17 04:25 Eosinophils # 0.2 k/uL (0-0.7) 01/06/18 05:10 Basophils # 0.0 k/uL (0-0.2) 01/06/18 05:10 Myelocytes # (Manual) 0.17 k/uL (0) H 12/03/17 04:15 Nucleated RBCs 0 /100 WBC (0-0) 12/05/17 04:25 Manual Slide Review Performed 12/05/17 04:25 Polychromasia Present 12/03/17 04:15 Hypochromasia Marked 01/06/18 05:10 Poikilocytosis Slight 01/06/18 05:10 Anisocytosis Moderate 01/06/18 05:10 Microcytosis Slight 01/05/18 05:00 Target Cells Present 12/03/17 04:15 PT 11.7 sec (9.0-12.0) 01/06/18 05:10 INR 1.2 (<1.2) H 01/06/18 05:10 APTT 23.9 sec (22.0-30.0) 12/21/17 04:50 Fibrinogen 334 mg/dL (200-500) 11/26/17 04:22 Sample Site JOSEPH 01/06/18 08:14 ABG pH 7.49 (7.35-7.45) H 01/06/18 08:14 ABG pCO2 37 mmHg (35-45) 01/06/18 08:14 ABG pO2 116 mmHg (83-108) H 01/06/18 08:14 ABG HCO3 28 mmol/L (21-25) H 01/06/18 08:14 ABG Total CO2 30 mmol/L (19-24) H 01/06/18 08:14 ABG O2 Saturation 99.1 % (94-97) H 01/06/18 08:14 ABG Base Excess 5.0 mmol/L 01/06/18 08:14 ABG Hematocrit 24 % (34.0-46.0) L 11/25/17 17:37 Robbi Test Yes 01/06/18 08:14 ABG Sodium 144 mmol/L (135-146) 11/25/17 17:37 ABG Potassium 3.8 mmol/L (3.4-4.5) 11/25/17 17:37 ABG Ionized Calcium 4.0 mg/dL (4.5-5.3) L 11/25/17 17:37 ABG Glucose 139 mg/dL (75-99) H 11/25/17 17:37 ABG Lactic Acid 2.8 mmol/L (0.5-1.6) H* 11/25/17 17:37 Hemoglobin 7.8 gm/dL (11.4-16.0) L 11/25/17 17:37 FiO2 35 % 01/06/18 08:14 Sodium 137 mmol/L (137-145) 01/06/18 05:10 Potassium 4.0 mmol/L (3.5-5.1) 01/06/18 05:10 Chloride 99 mmol/L (98-107) 01/06/18 05:10 Carbon Dioxide 29 mmol/L (22-30) 01/06/18 05:10 Anion Gap 9 mmol/L 01/06/18 05:10 BUN 38 mg/dL (7-17) H 01/06/18 05:10 Creatinine 0.84 mg/dL (0.52-1.04) 01/06/18 05:10 Est GFR (MDRD) Af Amer >60 (>60 ml/min/1.73 sqM) 12/07/17 04:00 Est GFR (MDRD) Non-Af >60 (>60 ml/min/1.73 sqM) 12/07/17 04:00 Est GFR (CKD-EPI)AfAm 83 (>60 ml/min/1.73 sqM) 01/06/18 05:10 Est GFR (CKD-EPI)NonAf 72 (>60 ml/min/1.73 sqM) 01/06/18 05:10 Glucose 79 mg/dL (74-99) 01/06/18 05:10 POC Glucose (mg/dL) 82 mg/dL (75-99) 01/06/18 17:17 POC Glu Rn Transfer ID Malick Navarrete 01/06/18 17:17 Calcium 8.5 mg/dL (8.4-10.2) 01/06/18 05:10 Ionized Calcium Bruce 4.7 mg/dL (4.5-5.3) 12/11/17 15:45 Phosphorus 3.9 mg/dL (2.5-4.5) 01/05/18 05:00 Magnesium 2.0 mg/dL (1.6-2.3) 01/05/18 05:00 Total Bilirubin 0.4 mg/dL (0.2-1.3) 12/31/17 04:30 AST 36 U/L (14-36) 12/31/17 04:30 ALT 34 U/L (9-52) 12/31/17 04:30 Alkaline Phosphatase 88 U/L (38-126) 12/31/17 04:30 Total Protein 6.2 g/dL (6.3-8.2) L 12/31/17 04:30 Albumin 3.1 g/dL (3.5-5.0) L 12/31/17 04:30 Prealbumin 7.0 mg/dL (18.0-42.0) L 12/27/17 05:10 Triglycerides 130 mg/dL (<150) 12/29/17 11:45 Cholesterol 80 mg/dL (<200) 12/29/17 11:45 LDL Cholesterol, Calc 34 mg/dL (0-99) 12/29/17 11:45 HDL Cholesterol 20 mg/dL (40-60) L 12/29/17 11:45 Arterial Blood Potassium 3.8 mmol/L (3.4-4.5) 11/25/17 17:37 Arterial Blood Glucose 139 mg/dL (75-99) H 11/25/17 17:37 Urine Color Yellow 12/04/17 10:00 Urine Appearance Cloudy (Clear) H 12/04/17 10:00 Urine pH 5.5 (5.0-8.0) 12/04/17 10:00 Ur Specific [place] 1.015 (1.001-1.035) 12/04/17 10:00 Urine Protein Trace (Negative) H 12/04/17 10:00 Urine Glucose (UA) Negative (Negative) 12/04/17 10:00 Urine Ketones Negative (Negative) 12/04/17 10:00 Urine Blood Negative (Negative) 12/04/17 10:00 Urine Nitrite Negative (Negative) 12/04/17 10:00 Urine Bilirubin Negative (Negative) 12/04/17 10:00 Urine Urobilinogen <2.0 mg/dL (<2.0) 12/04/17 10:00 Ur Leukocyte Esterase Negative (Negative) 12/04/17 10:00 Urine RBC 7 /hpf (0-5) H 12/04/17 10:00 Urine WBC 1 /hpf (0-5) 12/04/17 10:00 Ur Squamous Epith Cells 8 /hpf (0-4) H 12/04/17 10:00 Urine Bacteria Occasional /hpf (None) H 12/04/17 10:00 Urine Mucus Rare /hpf (None) H 12/04/17 10:00 Fluid Source Bronchial Wash 12/15/17 10:40 Fluid Color Colorless 12/15/17 10:40 Fluid Appearance Cloudy 12/15/17 10:40 Fluid RBC 150 /uL 12/15/17 10:40 Fluid Nucleated Cells 6900 /uL 12/15/17 10:40 Fluid Polynuclear WBCs 95 % 12/15/17 10:40 Fluid Mononuclear WBCs 5 % 12/15/17 10:40 Stl Cryptosporidium Ag Negative (Negative) 01/02/18 06:00 Stool Giardia Source Stool 01/02/18 06:00 Stl Giardia Antigen Negative (Negative) 01/02/18 06:00 Vancomycin Trough 22.9 ug/mL 01/01/18 04:45 Random Vancomycin 21.2 ug/mL 12/16/17 04:15 Heparin-Ind Plt Ab Scrn 0.231 OD (<0.4) 11/29/17 04:50 C. difficile (EIA) Intrp Negative (Negative) 01/02/18 06:00 Virus Source See Below 12/15/17 10:40 Viral Test See Below 12/15/17 10:40 Virus Analysis Interp See Below 12/15/17 10:40 Blood Type A Positive 01/05/18 08:30 Blood Type Recheck No 01/05/18 08:30 Antibody Screen NEGATIVE 01/05/18 08:30 Crossmatch See Detail 12/14/17 10:10 Transfuse Cryo [id number] 11/26/17 00:39 Transfuse Plasma 12/15/2017 12/15/17 05:51 Transfuse Platelets [id number] 11/25/17 14:55 Spec Expiration Date 01/08/2018 - 232901/05/18 08:30 Microbiology 01/02/18 06:00 Stool Stool Culture - Final 12/15/17 10:40 Bronchial Washings - Left Acid Fast Bacilli Smear - Final 12/15/17 10:40 Bronchial Washings - Left Acid Fast Bacilli Culture - Preliminary 12/10/17 10:45 Chest Acid Fast Bacilli Smear - Final 12/10/17 10:45 Chest Acid Fast Bacilli Culture - Preliminary 12/10/17 10:50 Chest Acid Fast Bacilli Smear - Final 12/10/17 10:50 Chest Acid Fast Bacilli Culture - Preliminary 12/10/17 10:40 Chest Fungal Culture - Preliminary 12/10/17 10:45 Chest Fungal Culture - Preliminary 12/10/17 10:50 Chest Fungal Culture - Preliminary 01/02/18 06:00 Stool Stool for WBCs - Final 12/24/17 11:30 Catheter Tip Catheter Tip Culture - Final 12/15/17 10:40 Bronchial Washings - Left Fungal Culture - Preliminary Rachana albicans 12/15/17 10:40 Bronchial Washings - Left Gram Stain - Final 12/15/17 10:40 Bronchial Washings - Left Bronchial Washings Culture - Final Rachana albicans 12/14/17 21:30 Sputum Gram Stain - Final 12/14/17 21:30 Sputum Sputum Culture - Final Rachana albicans 12/10/17 10:50 Chest Anaerobic Culture - Final 12/10/17 10:40 Chest Anaerobic Culture - Final 12/10/17 10:45 Chest Anaerobic Culture - Final 12/13/17 05:27 Urine,Catheterized Urine Culture - Final 12/10/17 10:40 Chest Gram Stain - Final 12/10/17 10:40 Chest Wound Culture - Final Serratia marcescens 12/10/17 10:45 Chest Gram Stain - Final 12/10/17 10:45 Chest Tissue Culture - Final Serratia marcescens 12/10/17 10:50 Chest Gram Stain - Final 12/10/17 10:50 Chest Tissue Culture - Final Serratia marcescens 12/07/17 15:40 Chest Gram Stain - Final 12/07/17 15:40 Chest Wound Culture - Final Serratia marcescens 12/04/17 10:00 Urine,Voided Urine Culture - Final Escherichia coli Serratia marcescens 11/26/17 04:00 Sputum Gram Stain - Final 11/26/17 04:00 Sputum Sputum Culture - Final Assessment and Plan (1) Severe mitral regurgitation Current Visit: Yes Status: Chronic Code(s): I34.0 - NONRHEUMATIC MITRAL ( VALVE) INSUFFICIENCY SNOMED Code(s): 85651753 (2) CAD (coronary artery disease) Current Visit: Yes Status: Chronic Code(s): I25.10 - ATHSCL HEART DISEASE OF [place] CORONARY ARTERY W/O ANG PCTRS SNOMED Code(s): 02790429 (3) Acute blood loss as cause of postoperative anemia Current Visit: Yes Status: Acute Code(s): D62 - ACUTE POSTHEMORRHAGIC ANEMIA SNOMED Code(s): 06634893926470933 (4) Pressure ulcer of contiguous region involving back and buttock, stage 3 Current Visit: Yes Status: Acute Code(s): L89.43 - PRESSR ULCER OF CONTIG SITE OF BACK, BUTTOCK AND HIP, STG 3 SNOMED Code(s): 408059453 (5) Sternal wound dehiscence Narrative/Plan: 67-year-old woman presents to Hospital for treatment of her severe mitral irritation. Underwent mitral valve replacement, coronary artery bypass grafting 1, Maze procedure and clipping of the left atrial appendage with a complication of the left ventricular wall tear. The patient has had a very protracted recovery she is now day 14 post operative and is still having difficulty with her respiratory status requiring BiPAP. The patient's nutritional status and underlying comorbidities have complicated her care. She now has evidence of the sternal dehiscence with evidence of gram negatives bacilli being found at the site. There is evidence of urinary tract infection with E. coli and Serratia. This Serratia species is somewhat resistant and consequently we'll alter the current antimicrobial therapy from Zosyn to meropenem to ensure coverage for other potential pathogens that are resistant that could be in the sternal wound while we await cultures. The patient will be going to the operating room tomorrow for debridement and wound VAC placement. The cultures were further direct the overall course of antibiotics. Urinary infection appears to be doing somewhat better. The patient fortunately is comfortable and doing well with her BiPAP. 12/10/2017 the patient is status post surgery and actually is feeling a bit better this afternoon than yesterday. Her pain is quite well controlled. She is not on BiPAP. She is less short of breath. Wound culture has verified the Serratia marcescens to the sternal wound. We'll constantly continue the current course of meropenem due to some of the resistance patterns or seeing with the species. Continue local care at this point time with the negative pressure system to the sternal wound. The plastic surgery consult is being requested for reconstruction of her chest. She will require a course of intravenous antibiotic therapy given her complex infection. Dual-lumen PICC is already in place. We'll repeat the discharge planners as to her place of rehab. 12/11/2017 the patient is metabolically stable but is having difficulties with her respiratory status and is now back on BiPAP which has been intermittent over the last multiple days. Negative pressure therapy remains intact and the sternum and we await the plastic surgery intervention. 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 Continue supportive care, and nutritional supplements as possible to improve for tissue healing. 12/13/2017 patient is on BiPAP. She is comfortable at this time. Receiving her intravenous antibiotic therapy without difficulties. At this time the surgeon present in a sterile fashion the wound VAC is removed. Surgeon evaluates and then the wound VAC is reapplied with 2 of the white foam, periwound protected with DuoDERM no difficulty with the seal. Merrem continues. 12/15/2017 the patient has had marked worsening of her status in that she had respiratory failure requiring reintubation and mechanical ventilation. She is now sedated and comfortable but has had some hemodynamic instability and is now back on vasopressor therapy. Bronchoscopy is performed and suctioning of mucous plugs as allowed some improvement of her pulmonary status. Further cultures are process. Meropenem and vancomycin continue for the isolated Serratia and concerns for resistant gram-positive infection at this time. Plastic surgery evaluation is in process and surgical plans for later this week appear to be possible. 12/16/2017 reveals the patient to be stable from the last 24 hours. Her ventilatory settings are similar. She's currently not on vasopressor therapy. She is tolerating current antibiotic therapy well with no difficulties with rash and diarrhea or marked changes of her hematological parameters. She's had no further active bleeding. Sputum culture with gram-positive cocci seen vancomycin was added we await final cultures. 12/20/2017 patient remained stable and is being prepped for her sternal reconstruction surgery tomorrow. She's not on vasopressor therapy, and vent settings are stable. Most recent bronchoscopy showed mucous plug no evidence of any new pathogens except yeast was found likely from upper airways. Fluconazole was added given her significant risks, although fungal pneumonia is not occurring at this time. At the time of reconstruction repeat samplings from her sternum will be helpful to help direct the course of antibiotic therapy , pathology and culture of the sternum will be helpful. Remains on the meropenem and vancomycin at this time. 12/21/2017 the patient is status post the sternal reconstruction with muscle flap, reportedly is only a partial closure at this time. However visit. The cardiac structure is completely covered. The patient is showing improvement in her cardiopulmonary status today. No active bleeding is noted. She is tolerating current antibiotic therapy well with meropenem and vancomycin. Await final culture and pathological data to help derive the course of her antibiotic therapy 12/23/2017 reveals the patient to be improved, she has been extubated and tolerating BiPAP well. The case is discussed with the cardiothoracic surgeon. The muscle flap was then performed and there is a biological skin substitute over the flap. She related that the plastic surgeon would not allow a wound VAC to be placed for approximately 10 days after the surgery. We will monitor. Continue current antibiotic therapy planning a multiweek course of therapy for the complex sternal wound infection. 12/24/2017 reveals the patient to have further improvement that she has had a tracheostomy placed. This will hopefully help her long-term weaning situation and also help with the nutritional difficulties. As she has improvement of her status hopefully the significant difference with her skin from the edema low albumin and blistering will improve. Receiving extensive antibiotic therapy for the sternal wound dehiscence will continue with the meropenem and vancomycin at this time. 12/25/2017 reveals the patient to have some improvement in the last 24 hours. She's doing well with a tracheostomy and is on 35% FiO2. Pain control is well at this point in time. Her spitting edema seems to be slightly improving and does not have as many blisters that she was having. Still does have anasarca but appears to be a bit less tight than she was a day ago. Her wounds are improving with the local wound care. Antibiotic therapy continues with meropenem and vancomycin for the sternal wound dehiscence and infection. Dressing changes have been per the cardiothoracic team to the chest wound. The abdominal wound is healing well and is having some serous drainage related to the anasarca. Hopefully with improving edema status and improve nutritional status anasarca will resolve. 12/27/2017 reveals a patient with further improvement. Her anasarca is improving and she is having less edema. She is tolerating the intravenous antibiotic therapy of meropenem and vancomycin for her sternal wound dehiscence. Leukocytosis in general is improved. No other new infections are noted. She had a wound VAC dressing change today of the sternal area. 12/28/2017 reveals the patient to have developed some bowel distention and concerns to ileus. She's been seen by general surgery. He will determine if she needs to have her Dobbhoff removed and an NG tube place. The patient has significant hypo albuminemia and is in need of the extensive supplementation, consequently TPN was requested per the surgeon. She will remain on her antibiotic therapy planning 6 weeks for the complex sternal dehiscence. Cardiothoracic surgery have changed her VAC dressing to her sternal wound. 12/29/2017 patient continues to tolerate antibiotic therapy well. Orders have been clarified for the 6 weeks of meropenem and vancomycin. cardiothoracic is in charge of the dressing changes to the complex sternal dehiscence wound. Tolerating TPN well with overall goal to improve her very low protein which will help her significant and extensive tissue edema. 12/30/2017 patient continues to have some improvement, if she is improving will [facility]term [facility]aning of physical therapy.she is doing better from her ileus and TPN is being well-tolerated.will be on intravenous antibiotic therapy through 01/21/2018 12/31/2017 patient is stable at this time status post the NG tube has been placed for her ileus. Nutrition via TPN. Antibiotic therapy with the meropenem and vancomycin continues through 01/21/2018. Follow up cultures as indicated. Wound VAC is being changed as per cardiothoracic surgery. The pressure ulcerations to the buttocks area and posterior scalp are improving. 01/03/2018 reveals the patient to be feeling somewhat better today. Pain level is 0. Tolerating nutrition well at this point in time and has been cleared for a PEG tube to be placed to allow easier nutrition when she is ready for [facility]. He has tolerated IMV trial today quite well. Antibiotic therapy continues to 01/21/2018. 01/04/2018 H and doing well on her current CPAP trials. PEG tube tomorrow. If this occurs she will then be able to have anticoagulation, cardioversion. Once cardioversion occurs in her heart rate improve she would then be a candidate for [facility]term [facility]. Antibiotic therapy until 01/21/2018 01/05/2018 patient has had her PEG tube placed today. Other than some pain at that site she's doing quite well. Tolerating multiple hours of CPAP today. There was a momentary standing with a multiperson assist. When she is anticoagulated will then be able to have a cardioversion after which she will be transferred [facility] therapy through 01/21/2018 01/06/2018 patient is status post PEG tube placement. Is receiving 20 mL/h of nutrition and tolerating it well. As she is improving and will move to her goal. Enhance nutrition will be an important part of her overall healing and eventual long-term weaning and eventual decannulation from her tracheostomy. For her sternal dehiscence she is on antibiotic therapy through 01/21/2018. Her pain control is adequate. Her spirits are good. She is somewhat anxious about standing with worries about falling but is doing better today. Current Visit: Yes Status: Acute Code(s): T81.32XA - DISRUPTION OF INTERNAL OPERATION (SURGICAL) WOUND, NEC, INIT SNOMED Code(s): 00442892
[2018-01-07] MEDS: METOCLOPRAMIDE 5 MG/ML 2 ML VIAL IVP SCH ×4 (00:07→19:14)
[2018-01-07] MEDS: HEPARIN SODIUM,PORCINE 5,000 UNIT/ML 1 ML VIAL SQ SCH ×3 (00:07→16:31)
[2018-01-07] MEDS: MEROPENEM 1 GM in SODIUM CHLORIDE 0.9% 100 ML IVPB SCH ×3 (00:12→16:31)
[2018-01-07 00:17] LABS: Glucose,Whole Blood 95 mg/dL (75-99)
[2018-01-07] MEDS: IPRATROPIUM-ALBUTEROL 3 ML NEB INHALATION SCH ×7 (00:17→23:02)
[2018-01-07] MEDS: INSULIN ASPART 100 UNIT/ML 1 ML 10 ML VIAL SQ SCH ×4 (00:31→19:12)
[2018-01-07 05:33] LABS: Anisocytosis Moderate; HCT 25.3 % (34.0-46.0); HGB 7.8 gm/dL (11.4-16.0); Hypochromasia Moderate; MCH 26.7 pg (25.0-35.0); MCHC 30.9 g/dL (31.0-37.0); MCV 86.4 fL (80.0-100.0); Mean Platelet Volume 7.3; Platelet Count 289 k/uL (150-450); Poikilocytosis Slight; RBC 2.93 m/uL (3.80-5.40); RDW 20.7 % (11.5-15.5); WBC 11.4 k/uL (3.8-10.6)
[2018-01-07 05:43] LABS: Glucose,Whole Blood 107 mg/dL (75-99)
[2018-01-07 05:50] LABS: Calcium 8.5 mg/dL (8.4-10.2); INR 1.4 (<1.2); Potassium 3.7 mmol/L (3.5-5.1); Prothrombin Time 12.9 sec (9.0-12.0)
[2018-01-07] MEDS: BUDESONIDE 1 MG/2 ML NEBU INHALATION SCH ×2 (07:33→18:42)
[2018-01-07] MEDS ORDERED: MORPHINE ORAL SOLN 10 MG/5 ML CUP PO PRN (08:08)
[2018-01-07] MEDS: DILTIAZEM ORAL 60 MG TAB PO SCH ×3 (08:09→21:11)
[2018-01-07] MEDS: PANTOPRAZOLE 40 MG TABLET PO SCH (08:23)
[2018-01-07] MEDS: ASPIRIN 81 MG PO SCH (08:24)
[2018-01-07] MEDS: METOPROLOL TARTRATE 50 MG TAB NG-TUBE SCH (08:24)
[2018-01-07] MEDS: ATORVASTATIN 40 MG TAB PO SCH (08:24)
[2018-01-07] MEDS: LACTOBACILLUS ACIDOPH & BULGAR 1 EACH PACKET PO SCH ×3 (08:24→21:11)
[2018-01-07] MEDS: AMIODARONE 200 MG TAB PO SCH ×2 (08:24→21:10)
[2018-01-07] MEDS: DEXTROSE 5%-0.45% NACL 1,000 ML IV SCH (08:25)
[2018-01-07 08:30] LABS: ABG Base Excess -1.7 mmol/L; ABG HCO3 21 mmol/L (21-25); ABG PCO2 27 mmHg (35-45); ABG PH 7.51 (7.35-7.45); ABG PO2 140 mmHg (83-108); ABG TCO2 22 mmol/L (19-24)
--- NOTE | 2018-01-07 09:16 | XR ---
EXAMINATION TYPE: XR chest 1V portable DATE OF EXAM: 01/07/2018 COMPARISON: 01/06/2018 HISTORY: Post cardiac surgery TECHNIQUE: Single frontal view of the chest is obtained. FINDINGS: Postsurgical changes noted. Central line, tracheostomy tube and NG tube are stable. Bilate ral pleural effusion and consolidation with diffuse interstitial pattern. The heart is enlarged. Vasc ular stent noted overlying the left upper mediastinum. Atherosclerotic change aorta. IMPRESSION: Bilateral infiltrate and pleural effusion correlate for CHF.
--- NOTE | 2018-01-07 10:18 | P.PN ---
Subjective Progress Note Date: 01/07/18 Principal diagnosis: Status post open heart This is a pleasant 67-year-old female patient who sees Dr. Crawley as an outpatient who underwent an open heart surgery where she had CABG 1 associated with mitral valve replacement and maze procedure, with a postoperative course was complex and complicated by respiratory failure, chest incision dehiscence, where the patient did have to go to the OR again and have another surgery. Currently the patient is in chronic respiratory failure and she does have a tracheostomy hemodynamically she continues to have atrial flutter with heart rate around 115 beats per minute.The hemoglobin continues to be around 8. The patient wasn't started on Coumadin and INR today is 1.5. I'm going to give the patient 5 mg of Coumadin today and check INR tomorrow. The heart rate seems to be coming down very nicely and her heart rate now is 110 beats per minutes. Objective - Vital Signs Vital signs: Vital Signs Temp 98.5 F 01/07/18 08:00 Pulse 109 H 01/07/18 09:00 Resp 21 01/07/18 09:00 BP 106/58 01/04/18 08:59 Pulse Ox 96 01/07/18 09:00 Intake & Output 01/06/18 01/07/18 01/07/18 18:59 06:59 18:59 Intake Total 976 203 289 Output Total 1950 790 115 Balance -974 -587 174 Weight 97.6 kg 97.6 kg Intake: IV 606 113 129 Dextrose 5%-0.45% NaCl 1, 120 80 20 000 ml @ 10 mls/hr IV . Q24H [facility] Rx#:[id number] Meropenem 1 gm In Sodium 200 100 Chloride 0.9% 100 ml @ 200 mls/hr IVPB Q8HR [facility] Rx#:[id number] Pressure Bag 36 33 9 Vancomycin 1,500 mg In 250 Sodium Chloride 0.9% 250 ml @ 125 mls/hr IVPB Q36H [facility] Rx#:[id number] Tube Feeding 310 90 160 Other 60 Output: Drainage 1225 420 Right Abdomen 1225 420 Urine 725 370 115 Other: Voiding Method Indwelling Catheter Indwelling Catheter # Voids 1 ABP, PAP, CO, CI - Last Documented Arterial Blood Pressure 116/59 Pulmonary Artery Pressure 38/33 Cardiac Output 5.8 Cardiac Index 2.9 - Constitutional General appearance: Present: no acute distress - Labs CBC & Chem 7: 01/07/18 05:01 01/07/18 05:01 Labs: Abnormal Lab Results - Last 24 Hours (Table) 01/07/18 01/07/18 01/07/18 Range/Units 05:01 05:01 05:01 WBC 11.4 H (3.8-10.6) k/uL RBC 2.93 L (3.80-5.40) m/uL Hgb 7.8 L (11.4-16.0) gm/dL Hct 25.3 L (34.0-46.0) % MCHC 30.9 L (31.0-37.0) g/dL RDW 20.7 H (11.5-15.5) % PT 12.9 H (9.0-12.0) sec INR 1.4 H (<1.2) ABG pH (7.35-7.45) ABG pCO2 (35-45) mmHg ABG pO2 (83-108) mmHg ABG O2 Saturation (94-97) % BUN 35 H (7-17) mg/dL POC Glucose (mg/dL) (75-99) mg/dL 01/07/18 01/07/18 Range/Units 05:42 08:28 WBC (3.8-10.6) k/uL RBC (3.80-5.40) m/uL Hgb (11.4-16.0) gm/dL Hct (34.0-46.0) % MCHC (31.0-37.0) g/dL RDW (11.5-15.5) % PT (9.0-12.0) sec INR (<1.2) ABG pH 7.51 H (7.35-7.45) ABG pCO2 27 L (35-45) mmHg ABG pO2 140 H (83-108) mmHg ABG O2 Saturation 100.0 H (94-97) % BUN (7-17) mg/dL POC Glucose (mg/dL) 107 H (75-99) mg/dL Microbiology - Last 24 Hours (Table) 01/02/18 06:00 Stool Culture - Final Stool Assessment and Plan Assessment: Assessment #1 respiratory failure #2 status post open heart and status post CABG and mitral valve replacement #3 persistent atrial flutter #4 congestive heart failure #5 sternal wound infection #6 peripheral vascular disease and known left subclavian stenosis #7 multiple comorbid conditions Plan #1 continue anticoagulation and continue monitor the INR #2 follow-up with the patient.
[2018-01-07] MEDS ORDERED: METOPROLOL TARTRATE 25 MG TAB PEG/G-TUBE STA (11:03)
[2018-01-07] MEDS ORDERED: FUROSEMIDE 10 MG/ML 2 ML VIAL IV STA (11:04)
[2018-01-07 11:58] LABS: Glucose,Whole Blood 101 mg/dL (75-99)
--- NOTE | 2018-01-07 12:51 | P.PN ---
Subjective Progress Note Date: 01/07/18 Principal diagnosis: Status post CABG and mitral valve replacement postoperative day # 43 This is a 67-year-old female, status post 1 vessel bypass surgery and mitral valve replacement, patient is postoperative day #39. Patient also had surgical flap of the sternal 1 as she developed wound dehiscence and infection. Postoperative day #13. Patient also underwent tracheostomy and she is postoperative day #10. Patient remains on mechanical ventilation, continues to have chronic atelectasis and possible pneumonia in the left lower lobe, remains on assist control mode of mechanical ventilation, and today I will plan to try her on IMV and pressure support hoping to cut down the IMV rate gradually and possibly keep her on pressure support only. In the meantime the patient has [facility] to their facility. Cardiac-mcguire the patient remains in atrial flutter, ventricular rate is about 120. That is being addressed by cardiology on the case. Her ventilator settings are tidal volume of 400 assist control rate of 20 FiO2 of 35 % PEEP of 5. Toprol pressure is about 20. Chest x-ray as noted above. Suspect some component of mild congestive heart failure. And left lower lobe atelectasis. Labs were all reviewed, ABG showed a pO2 of 121 pCO2 of 38 pH of 7.52 basic metabolic profile is normal BUN is 43 creatinine 0.91 WBC count is 13.7 hemoglobin is 8.1. Reevaluated today on 01/04/2018, patient remains on mechanical ventilation, with able to elevate many hours of pressure support of 12 and IMV of 6 yesterday. Today I plan to try pressure support of 12 and CPAP. Patient is scheduled to have a PEG tube placement is also scheduled to have cardioversion after a good course of anticoagulation and PEG tube placement. Hopefully this will be all done this week, and then we can potentially consider transferring the [facility] a [facility]. ABG today showed a pO2 of 99 pCO2 of 42 pH of 7.49. Rest of the labs were noted to be unremarkable. Chest x-ray is basically the same, continues to show mild congestive changes, and left retrocardiac opacity with left lower lobe atelectasis. Patient was reevaluated today on 01/05/2018, remains on mechanical ventilation, plan to give her another trial today of IMV pressure support. Patient did relatively well yesterday, but still not quite ready for extubation. Today she had a PEG tube placed by Dr. Aldridge, and she may require cardioversion tomorrow. Overall the patient continues to do about the same. Her chest x-ray continues to show some left perihilar infiltrate and left lower lobe atelectasis. Labs including CBC ABG and basic metabolic profile were all reviewed. Her ABG showed a pO2 of 115 pCO2 of 41 pH of 7.47 on 35% FiO2. Hemoglobin is 8.3 basic metabolic profile is normal. Renal profile is normal. Reevaluated today on 01/06/2018, patient is doing well, PEG tube was placed yesterday uneventfully. Patient will go on to another trial of weaning utilizing a pressure support today with CPAP. She will be on a pressure support of 12. Patient may undergo cardioversion tomorrow, waiting to be fully anticoagulated. Chest x-ray continues to show some atelectasis at the left base , but her ABG is excellent and her labs are excellent. ABG showed a pO2 of 116 pCO2 of 37 pH of 7.49 and this was on 35% FiO2 and assist control mode of mechanical ventilation. Her CBC showed a hemoglobin of 8 WBC count of 11.4. Basic metabolic profile and renal profile are normal. Reevaluated today on 01/07/2018, patient continues to do relatively well, remains in atrial flutter but her rate now is 110. Patient is tolerating enteral feeding via PEG tube. Tolerating long hours of pressure support of 12. And CPAP. He tried to go on a pressure support of 10, however significant drop was noted in her tidal volumes, hence I kept her on pressure support of 12 for today. Chest x-ray is basically about the same showing chronic changes in the left lower lobe. ABG today showed a pO2 of 140 pCO2 of 27 pH of 7.51 and her basic metabolic profile is relatively normal renal profile is normal. Objective - Vital Signs Vital signs: Vital Signs Temp 98.5 F 01/07/18 08:00 Pulse 108 H 01/07/18 11:21 Resp 27 H 01/07/18 11:00 BP 106/58 01/04/18 08:59 Pulse Ox 98 01/07/18 11:00 Intake & Output 01/06/18 01/07/18 01/07/18 18:59 06:59 18:59 Intake Total 976 203 395 Output Total 1950 790 185 Balance -974 -587 210 Weight 97.6 kg 97.6 kg Intake: IV 606 113 155 Dextrose 5%-0.45% NaCl 1, 120 80 40 000 ml @ 10 mls/hr IV . Q24H [facility] Rx#:[id number] Meropenem 1 gm In Sodium 200 100 Chloride 0.9% 100 ml @ 200 mls/hr IVPB Q8HR [facility] Rx#:[id number] Pressure Bag 36 33 15 Vancomycin 1,500 mg In 250 Sodium Chloride 0.9% 250 ml @ 125 mls/hr IVPB Q36H [facility] Rx#:[id number] Tube Feeding 310 90 240 Other 60 Output: Drainage 1225 420 Right Abdomen 1225 420 Urine 725 370 185 Other: Voiding Method Indwelling Catheter Indwelling Catheter Indwelling Catheter # Voids 1 ABP, PAP, CO, CI - Last Documented Arterial Blood Pressure 114/66 Pulmonary Artery Pressure 38/33 Cardiac Output 5.8 Cardiac Index 2.9 - Exam General appearance: Present: cooperative, no acute distress, obese, - Neck Details: Neck is supple, no JVD, no lymphadenopathy. Tracheostomy tube is midline and intact, sutures in place. - Respiratory Details: Lungs sounds essentially diminished at the left base, Respirations are symmetrical and nonlabored with mechanical ventilator support. Oxygen saturation are 99% with current ventilator settings. - Cardiovascular Details: Pain is tachycardic at regular rate and rhythm seems to be regular. This may be a a flutter with 2 to one block. S1 and S2 present, negative for S3 , gallop or murmur. - Gastrointestinal Gastrointestinal Comment(s): Abdomen is soft, nontender, no megaly, no rebound, PEG tube is intact. - Genitourinary Genitourinary Comment(s): Mason catheter for accurate I&O. Draining clear yellow urine. - Integumentary Integumentary Comment(s): Skin is warm and dry. No clubbing or cyanosis. Both lower extremities are wrapped with Vance bandage. - Neurologic Neurologic Comment(s): Alert and following verbal commands. No gross focal neurologic deficit noted. - Musculoskeletal Musculoskeletal: Present: generalized weakness, strength equal bilaterally - Psychiatric Psychiatric Comment(s): Psychiatric: Normal mood, affect, and mental status examination noted. - Labs CBC & Chem 7: 01/07/18 05:01 01/07/18 05:01 Labs: Abnormal Lab Results - Last 24 Hours (Table) 01/07/18 01/07/18 01/07/18 Range/Units 05:01 05:01 05:01 WBC 11.4 H (3.8-10.6) k/uL RBC 2.93 L (3.80-5.40) m/uL Hgb 7.8 L (11.4-16.0) gm/dL Hct 25.3 L (34.0-46.0) % MCHC 30.9 L (31.0-37.0) g/dL RDW 20.7 H (11.5-15.5) % PT 12.9 H (9.0-12.0) sec INR 1.4 H (<1.2) ABG pH (7.35-7.45) ABG pCO2 (35-45) mmHg ABG pO2 (83-108) mmHg ABG O2 Saturation (94-97) % BUN 35 H (7-17) mg/dL POC Glucose (mg/dL) (75-99) mg/dL 01/07/18 01/07/18 01/07/18 Range/Units 05:42 08:28 11:56 WBC (3.8-10.6) k/uL RBC (3.80-5.40) m/uL Hgb (11.4-16.0) gm/dL Hct (34.0-46.0) % MCHC (31.0-37.0) g/dL RDW (11.5-15.5) % PT (9.0-12.0) sec INR (<1.2) ABG pH 7.51 H (7.35-7.45) ABG pCO2 27 L (35-45) mmHg ABG pO2 140 H (83-108) mmHg ABG O2 Saturation 100.0 H (94-97) % BUN (7-17) mg/dL POC Glucose (mg/dL) 107 H 101 H (75-99) mg/dL Assessment and Plan Assessment: 1 coronary artery bypass surgery with single-vessel bypass and mitral valve replacement/bioprosthetic valve. The patient is postop day # 43 2 sternal wound infection with Serratia marcescens with subsequent dehiscence. The patient underwent wound debridement with subsequent muscle flap and the patient is postop day # 17 3 prolonged ventilator dependent respiratory failure, status post tracheostomy tube insertion and the patient is postop day # 14 Patient remains on assist control mode of ventilation . We will try again IMV pressure support mode of mechanical ventilation and gradually transition to pressure support only with CPAP. 4 acute on chronic respiratory failure, multifactorial. The patient's sternal wound and the muscle flap is healing for now. 5 increased edema both upper and lower extremities, improving 6 tachycardia with an a flutter rhythm, cardiology is on the case. She is mainly maintained on oral medications. No plans to cardiovert per cardiology 7 peripheral vascular disease 8 left subclavian artery stenosis status post insertion of an endovascular stent 9 anemia, a expected outcome of prolonged ICU stay and multiple surgeries 10 ileus, improving patient is on enteral feeding 11 left lung collapse status post bronchoscopy and therapeutic it was suctioning. Patient has Rachana within the sputum currently on Diflucan. Most recent chest x-ray shows adequate rest of both lungs and there is some mild component of pulmonary congestion. 12 hypertension 13 hyperlipidemia 14 anemia multifactorial with a hemoglobin level of 8.3 today 15 status post PEG tube placement postoperative day #2 Recommendation: Continue ventilatory support, continue antibiotics, nutritional support, continue enteral feeding via PEG tube, continue daily trial of pressure support and CPAP as a weaning modality, continue physical therapy, will follow closely. Discussed her condition again with her daughter at bedside. Time with Patient: Less than 30
--- NOTE | 2018-01-07 13:46 | P.PN ---
Subjective Progress Note Date: 01/07/18 Principal diagnosis: Severe mitral valve regurgitation. Coronary artery disease. Preoperative paroxysmal atrial fibrillation on outpatient Coumadin for anticoagulation. Recent hospitalization for lower GI bleed, and duodenal ulcer. History of left subclavian stenosis with stent placement 2014 with recent discovery of critical re-in-stent stenosis. Previous tobacco dependence with preoperative FEV1 60% of predicted. Hypertension. Hyperlipidemia. Depression on Lexapro. Gallbladder disease. Family history of heart disease. Preoperative nasal swab positive for MRSA. Preoperative anemia. POD #43 and Mitral valve replacement using a 25 mm Ribera bioprosthetic tissue valve. Coronary artery bypass grafting 1, a reverse greater saphenous vein graft to the obtuse marginal coronary artery. Endoscopic harvesting of the left greater saphenous vein. Modified MAZE procedure. The report wasn't back yet not back in Ligation of the left atrial appendage using a 40 mm AtriClip. Epi- aortic ultrasound. Intraoperative transesophageal echocardiogram. Intraoperative left ventricular wall tear, an unexpected but potential outcome of surgery. Acute blood loss anemia, an expected outcome given patient's preoperative anemia and intraoperative bleeding. Postoperative prolonged mechanical ventilation secondary to hemodynamic instability, an unexpected but potential outcome of surgery given the extensive nature of her postoperative course. Sternal incision dehiscence, possible outcome of surgery given the patient's obesity, nutrition status and ability. POD #28 sternal wound debridement with placement of wound VAC. POD #23 bronchoscopy and bronchoalveolar lavage of the left lower lobe and extraction of mucous plug POD #15 right rectus abdominous muscle flap closure, open sternal wound. Closure of sternal wound and muscle flap with skin graft substitute, 238 cm. Implantation of reconstructive graft for closure of abdominal wall wound, [address] Krause. Postoperative left lower lobe collapse secondary to mucous plugging, and unexpected but potential outcome of surgery. Bronchial washings positive for Rachana species. Postoperative ileus, an unexpected but potential outcome of surgery. POD #14 placement of a #8 Shiley nonfenestrated tracheostomy tube. POD #2 placement of percutaneous endoscopic gastrostomy tube. The patient is currently lying in bed with her head elevated at 45. She is in no acute distress. Patient is currently on a weaning trial on the ventilator. CPAP 5, pressure support 12, FiO2 35%. She denies any complaints of pain or shortness of breath at this time. Her PEG tube remains in place with vital high -protein 1.0 kenrick. infusing at 40 mL per hour. Objective - Vital Signs Vital signs: Vital Signs Temp 98.5 F 01/07/18 08:00 Pulse 108 H 01/07/18 11:21 Resp 27 H 01/07/18 11:00 BP 106/58 01/04/18 08:59 Pulse Ox 98 01/07/18 11:00 Intake & Output 01/06/18 01/07/18 01/07/18 18:59 06:59 18:59 Intake Total 976 203 395 Output Total 1950 790 185 Balance -974 -587 210 Weight 97.6 kg 97.6 kg Intake: IV 606 113 155 Dextrose 5%-0.45% NaCl 1, 120 80 40 000 ml @ 10 mls/hr IV . Q24H CARLEE Rx#:[id number] Meropenem 1 gm In Sodium 200 100 Chloride 0.9% 100 ml @ 200 mls/hr IVPB Q8HR CARLEE Rx#:[id number] Pressure Bag 36 33 15 Vancomycin 1,500 mg In 250 Sodium Chloride 0.9% 250 ml @ 125 mls/hr IVPB Q36H CARLEE Rx#:[id number] Tube Feeding 310 90 240 Other 60 Output: Drainage 1225 420 Right Abdomen 1225 420 Urine 725 370 185 Other: Voiding Method Indwelling Catheter Indwelling Catheter Indwelling Catheter # Voids 1 ABP, PAP, CO, CI - Last Documented Arterial Blood Pressure 114/66 Pulmonary Artery Pressure 38/33 Cardiac Output 5.8 Cardiac Index 2.9 - Constitutional General appearance: Present: cooperative, no acute distress, obese - EENT ENT: Present: hearing grossly normal - Neck Details: Neck is supple, no JVD, no lymphadenopathy. #8 Shiley tracheostomy present and midline. - Respiratory Details: Lung sounds essentially clear throughout, diminished bilateral bases. Respirations are symmetrical and nonlabored with mechanical ventilator support. Oxygen saturations are 97% with mechanical ventilator support. Current ventilator settings are as follows: CPAP 5, pressure support 12, FiO2 35%. #8 Shiley trach present and intact to mechanical ventilator support. - Cardiovascular Details: Regular rhythm and tachycardic rate. S1 and S2 present, negative for S3, gallop or murmur. Open chest wound with VAC dressing in place. Bedside telemetry showing atrial flutter heart rate 110. Vance wraps from knees to thigh and sequential compression devices in place to her bilateral lower extremities. +1 peripheral edema to her bilateral upper and lower extremities. Right brachial arterial line and left brachial line in place and functioning. - Gastrointestinal Gastrointestinal Comment(s): Abdomen is soft, nontender and nondistended. Obese. Active bowel sounds to all 4 abdominal quadrants. Left upper quadrant PEG tube in place with tube feeding infusing per orders. Passing flatus. Bowel movement yesterday 2017. - Genitourinary Genitourinary Comment(s): Mason catheter for accurate I&O. Adequate urine output. Clear calvin urine. 275 mL output in the last 8 hours. - Integumentary Integumentary Comment(s): Skin is warm and dry. Midline open chest wound with VAC dressing in place. Right abdominal incision clean dry and approximated. Sheryl intact. HENRI drain in place to her right lower quadrant abdomen with copious thin straw-colored drainage. 240 mL output of the HENRI in the last 8 hours. Unstageable wound to her occipital area on her head clean and dry. No drainage present. - Neurologic Neurologic: Present: CNII-XII intact - Musculoskeletal Musculoskeletal: Present: generalized weakness, strength equal bilaterally - Psychiatric Psychiatric: Present: A&O x's 3, appropriate affect, intact judgment & insight - Allied health notes Allied health notes reviewed: nursing - Labs CBC & Chem 7: 01/07/18 05:01 01/07/18 05:01 Labs: Abnormal Lab Results - Last 24 Hours (Table) 01/07/18 01/07/18 01/07/18 Range/Units 05:01 05:01 05:01 WBC 11.4 H (3.8-10.6) k/uL RBC 2.93 L (3.80-5.40) m/uL Hgb 7.8 L (11.4-16.0) gm/dL Hct 25.3 L (34.0-46.0) % MCHC 30.9 L (31.0-37.0) g/dL RDW 20.7 H (11.5-15.5) % PT 12.9 H (9.0-12.0) sec INR 1.4 H (<1.2) ABG pH (7.35-7.45) ABG pCO2 (35-45) mmHg ABG pO2 (83-108) mmHg ABG O2 Saturation (94-97) % BUN 35 H (7-17) mg/dL POC Glucose (mg/dL) (75-99) mg/dL 01/07/18 01/07/18 01/07/18 Range/Units 05:42 08:28 11:56 WBC (3.8-10.6) k/uL RBC (3.80-5.40) m/uL Hgb (11.4-16.0) gm/dL Hct (34.0-46.0) % MCHC (31.0-37.0) g/dL RDW (11.5-15.5) % PT (9.0-12.0) sec INR (<1.2) ABG pH 7.51 H (7.35-7.45) ABG pCO2 27 L (35-45) mmHg ABG pO2 140 H (83-108) mmHg ABG O2 Saturation 100.0 H (94-97) % BUN (7-17) mg/dL POC Glucose (mg/dL) 107 H 101 H (75-99) mg/dL - Imaging and Cardiology Chest x-ray: report reviewed, image reviewed Assessment and Plan (1) Acute blood loss as cause of postoperative anemia Current Visit: Yes Status: Acute Code(s): D62 - ACUTE POSTHEMORRHAGIC ANEMIA SNOMED Code(s): 77929222889134372 (2) CAD (coronary artery disease) Current Visit: Yes Status: Chronic Code(s): I25.10 - ATHSCL HEART DISEASE OF [place] CORONARY ARTERY W/O ANG PCTRS SNOMED Code(s): 36551979 (3) Family history of coronary artery disease Current Visit: Yes Status: Chronic Code(s): Z82.49 - FAMILY HX OF ISCHEM HEART DIS AND OTH DIS OF THE CIRC SYS SNOMED Code(s): 979331932 (4) Hyperlipidemia Current Visit: Yes Status: Chronic Code(s): E78.5 - HYPERLIPIDEMIA, UNSPECIFIED SNOMED Code(s): 86911839 (5) Hypertension Current Visit: Yes Status: Chronic Code(s): I10 - ESSENTIAL (PRIMARY) HYPERTENSION SNOMED Code(s): 26266962 (6) Severe mitral regurgitation Current Visit: Yes Status: Chronic Code(s): I34.0 - NONRHEUMATIC MITRAL ( VALVE) INSUFFICIENCY SNOMED Code(s): 13319932 (7) Stenosis of left subclavian artery Current Visit: Yes Status: Chronic Code(s): I77.1 - STRICTURE OF ARTERY SNOMED Code(s): 66606854894639212 (8) PAD (peripheral artery disease) Current Visit: No Status: Acute Code(s): I73.9 - PERIPHERAL VASCULAR DISEASE , UNSPECIFIED SNOMED Code(s): 291973576 (9) History of GI bleed Current Visit: No Status: Resolved Code(s): Z87.19 - PERSONAL HISTORY OF OTHER DISEASES OF THE DIGESTIVE SYSTEM SNOMED Code(s): 622700841 (10) Paroxysmal atrial fibrillation Current Visit: No Status: Resolved Code(s): I48.0 - PAROXYSMAL ATRIAL FIBRILLATION SNOMED Code(s): 052358838 (11) Elevated aspartate aminotransferase level Current Visit: Yes Status: Acute Code(s): R74.0 - NONSPEC ELEV OF LEVELS OF TRANSAMNS & LACTIC ACID DEHYDRGNSE SNOMED Code(s): 514005167 (12) Ileus, postoperative Current Visit: Yes Status: Acute Code(s): K91.89 - OTH POSTPROCEDURAL COMPLICATIONS AND DISORDERS OF DGSTV SYS; K56.7 - ILEUS, UNSPECIFIED SNOMED Code(s): 747764944 Plan: 1. Continue low dose aspirin, statin, subcu heparin, beta krunal. We will increase her metoprolol tartrate to 100 mg per PEG tube twice a day. 2. Continue amiodarone for atrial fibrillation/atrial flutter prophylaxis. No further IV amiodarone. 3. Continue Cardizem 60 mg per PEG tube every 8 hours for rate control. 4. Ventilator management per pulmonology. Wean as tolerated. 5. Coumadin 5 mg per PEG tube today. Will dose based on daily PT/INR. Once therapeutic, Dr. Crawley will cardiovert patient. 6. Continue meropenem, Vanco management per Dr. Olivera until 01/21/2018. 7. Will monitor labs, chest x-rays. 8. Bronchodilators per pulmonology. 9. Will give IV Lasix 20 mg IV 1 today. 10. GI/DVT prophylaxis. 11. Increase activity. PT/OT/cardiac rehab following. 12. Keep abdominal drain until output is less then 30 mL in [address] Krause. 13. Keep Mason for strict accurate intake and output. Change out every 7 days. 14. Wound VAC to be changed on Wednesday, Wednesday, and Wednesday by nurse practitioner. Changed today, measurements of the wound 11.5 x 15 x 1 cm. 15. Local wound care to back of head and lower back. Silvadene for left upper thigh skin tear. 16. More recommendations as patient progresses. Anticipate discharge to select specialty early next week. Time with Patient: Greater than 30
[2018-01-07] MEDS ORDERED: WARFARIN 5 MG TAB PO ONE (18:00)
[2018-01-07 18:40] LABS: Glucose,Whole Blood 108 mg/dL (75-99)
[2018-01-07] MEDS: HYDROcodone/APAP 5-325MG 1 EACH TAB PO PRN (19:12)
[2018-01-07] MEDS: METOPROLOL TARTRATE 50 MG TAB PEG/G-TUBE SCH (21:10)
[2018-01-07] MEDS: ESCITALOPRAM 10 MG TAB PO SCH (21:10)
[2018-01-07] MEDS: SENNOSIDES-DOCUSATE SODIUM 1 EACH TAB PO SCH (21:14)
[2018-01-07] MEDS: VANCOMYCIN 1,500 MG in SODIUM CHLORIDE 0.9% 250 ML IVPB SCH (21:14)
[2018-01-07 23:52] LABS: Glucose,Whole Blood 99 mg/dL (75-99)
--- NOTE | 2018-01-08 00:03 | P.PN ---
Subjective Progress Note Date: 01/07/18 Principal diagnosis: Sternal wound dehiscence Pleasant 67-year-old female who has an extensive past medical history who is now 14 days postoperative from her open heart procedure it which point in time a mitral valve placement occurred, reverse saphenous vein coronary artery bypass grafting 1 to obtuse marginal, Maze procedure and ligation of the left atrial appendage all occurred interoperatively left ventricular wall tear occurred and was repaired. The patient has a known history of multiple medical troubles before her surgery that included her obesity, COPD and marked deconditioning. Patient has had difficulties recently that included urinary tract infection with E. coli and Serratia and has been treated with intravenous antibiotic therapy with Zosyn. She was having some improvement but then developed dehiscence of her sternal wound and there are plans for surgical debridement tomorrow wound culture showing gram-negative bacilli and with at the infectious diseases consultation was requested. The patient continues to have significant respiratory difficulties and is currently on BiPAP for support. Postoperatively the patient was hemodynamically unstable which made even turning of the patient not possible which has resulted in unavoidable areas of skin breakdown, that are now treatable given her improvement 12/10/2017 reveals the patient to be postoperative from the sternal wound debridement. The surgical note as well as discussion with the surgical team reveals evidence of poor bone quality and all of the sternal wires had pulled through her bony areas. Negative pressure therapy is in place. She is tolerating this well. Plastic surgery consult has been requested for reconstruction of her chest in the near future. Gram-negative bacilli growing from the sternal wound. She is quite comfortable after procedure, chest tube was placed of the left cavity and this is improved some left lung function and she seems less short of breath. The daughter is present and her questions were answered. 12/11/2017 reveals the patient to have had some respiratory distress today and is back on BiPAP at this time. She relates that her pain is under much significant control. Been no other new acute complaints are being made. 12/13/2017 the patient remains in the ICU she is currently on BiPAP but relates that she is quite comfortable. We will work with the nursing staff to change her VAC dressing at this time. await the plastic surgery timeline. 12/15/2017 reveals the patient to remain in intensive care unit, her status has worsened and that she developed flash pulmonary edema and respiratory failure requiring reintubation sedation mechanical ventilation. She underwent bronchoscopy today for removal of mucous plugs and to help with the collapsed left lower lobe. The patient has require some vasopressor support but is more stable this afternoon than earlier. She is sedated and comfortable. She has significant decline of hemoglobin is 7.6. Anticoagulation was held. Is being closely monitored by surgery and they await the plastic surgery intervention. 12/16/2017 cases briefly discussed with the cardiothoracic nurse practitioner in that the wound VAC is being changed today. It is unchanged with no difficulties. No further bleeding is noted. Plastic surgery evaluation apparently will occur tomorrow so the surgical plan can be devised. 12/20/2017 since last visit current thoracic has again change the wound VAC without difficulties. She tolerated it well. She remains on the ventilator at this point in time, does not appear to have any plans for weaning because she will have her plastic closure over open chest tomorrow. She's been hemodynamically stable with intermittent atrial flutter. No significant changes of oxygen requirements, drainage from the wound VAC is minimal as is drainage from her chest tube. 12/21/2017 patient is status post the partial plastic closure of her sternal wound. Complete cardiac coverage occurred but only partial closure was possible. Oxygen requirements are improving postoperative and is being closely watched for any further blood loss anemia. 12/23/2017 reveals the patient to be extubated on BiPAP. She is comfortable with her pain level is about a 2. Shortness of breath is not severe. She is unable to eat and a Dobbhoff will be placed a bit later today to help her with nutritional status to help her recovery. The current situation is discussed with the cardiothoracic surgeon team 12/24/2017 reveals evidence of the changes status in that she has now had a tracheostomy applied due to her chronic respiratory failure. Cardiothoracic surgery has changed the dressing today. Patient is comfortable after her surgery. Denies new acute discomforts. 12/25/2017 reveals that the patient is doing well with her tracheostomy. She is on 35% FiO2 with excellent saturations. The patient relates that she is comfortable her pain level is no more than a 4. She is receiving feedings via the Dobbhoff is tolerating that well but is having a few soft stools without swapnil diarrhea. 12/27/2017 patient remained stable after tracheostomy. With pain level is no more than a 2 at this point in time. Feedings via the Dobbhoff are going well. The wound VAC dressing was changed today without difficulties. Leukocytosis is improving. No hypotension. 12/28/2017. Overall the patient has been stable and that her pulmonary status without acute change. Doing well with the tracheostomy. Patient however developed significant abdominal distention with a tympanic abdomen. Abdominal x -ray revealed evidence of ileus. She's been seen by general surgery and they will determine if she needs an NG tube based on x-rays. She apparently is more comfortable this evening that she was earlier in the day. Nursing staff relates no fevers. 12/29/2017 patient is stable. Not having new acute difficulties. Is noted did have a pressure ulceration to the posterior aspect of the scalp that is being treated with a fall offloading cushion. Patient is actually quite comfortable today. Her ileus is starting to improve. Surgery he has no plans for surgical intervention into the abdomen. Is tolerating TPN. 12/30/2017 the patient is stable. She is doing well with her physical therapy and her antibiotic therapy for the sternal wound dehiscence. Ileus is improving and tolerating her TPN well. 12/31/2017 patient has been seen by the cardiothoracic team and wound VAC was changed without difficulty. She is having significant ongoing atrial flutter and has been seen by cardiology and they await medication effect for spontaneous transition back to a normal sinus mechanism that she has done the past. Patient is mildly short of breath but does well on the current ventilator settings. Her pain level is no more than a 2 and she is doing well with her physical therapy. NG tube was placed and this has given her relief of her distention and discomfort from her ileus 01/03/2018 patient is comfortable today. She has an IMV ventilation and other than some tiredness she relates she is doing well. Her pain level is 0. No difficulty with the recent dressing changes. Tolerating tube feeding at this point in time without abdominal pain. She is tolerating tube feeds well at this time. 01/04/2018 patient is comfortable doing well tolerated CPAP for 8 hours a day. We'll have her PEG tube placed tomorrow which will then allow the next set of changes hopefully with anticoagulation, cardioversion and then placement to vent facility. 01/05/2018 patient is had her PEG tube placed today. Other than some pain at that site she's doing relatively well. Spirits are good and she looks forward to transitioning to a new facility for chronic weaning and eventual removal of her trach. His related that today there was a moment of standing with multiple person assist. 01/06/2018 patient is still having some postoperative pain from the PEG tube that was placed. Other than That she is doing relatively well. Anticoagulation is started. When she is therapeutic cardioversion will occur and then hopefully transition to the chronic vent facility for long-term weaning. 01/07/2018 patient is doing better today. Her postoperative pain continues to improve and is tolerating tube feeds via the PEG tube well with increasing amounts of nutrition per hour nearly attending her goal. As noted she is comfortable. Did well with physical therapy today. Has been seen by cardiology. With her improved heart rate may not require cardioversion. Objective - Vital Signs Vital signs: Vital Signs Temp 98.5 F 01/07/18 20:00 Pulse 108 H 01/07/18 23:21 Resp 20 01/07/18 22:00 BP 106/58 01/04/18 08:59 Pulse Ox 99 01/07/18 22:00 Intake & Output 01/07/18 01/07/18 01/08/18 06:59 18:59 06:59 Intake Total 203 946 53 Output Total 790 715 40 Balance -587 231 13 Weight 97.6 kg 97.6 kg Intake: IV 113 346 13 Dextrose 5%-0.45% NaCl 1, 80 110 10 000 ml @ 10 mls/hr IV . Q24H [facility]LEE Rx#:[id number] Meropenem 1 gm In Sodium 200 Chloride 0.9% 100 ml @ 200 mls/hr IVPB Q8HR [facility]LE[facility] Rx#:[id number] Pressure Bag 33 36 3 Tube Feeding 90 600 40 Output: Drainage 420 Right Abdomen 420 Urine 370 715 40 Other: Voiding Method Indwelling Catheter Indwelling Catheter Indwelling Catheter # Voids 1 ABP, PAP, CO, CI - Last Documented Arterial Blood Pressure 88/50 Pulmonary Artery Pressure 38/33 Cardiac Output 5.8 Cardiac Index 2.9 - Exam Obese 67-year-old woman who is now extubated on BiPAP HEENT: Anicteric conjunctiva are pink and moist nasal mucosa grossly intact without significant lesions, there is no thrush. Oral mucosa is dry but no swapnil lesions could be seen, NG tube is now placed. Neck: The neck is supple without significant lymphadenopathy or thyromegaly. Tracheostomy intact without bleeding there is evidence of the posterior scalp lesion please refer to the nursing photography. Lungs: Symmetrical air entry is noted. There is scattered crackles but no swapnil bronchial sounds Heart: Irregular with an audible S1 and S2 soft S4 no audible murmur no click or rub Chest: The patient's mid sternotomy incision is now covered with a postoperative dressing from the plastic closure which is reported to be a partial flap closure Abdomen: Obese, Positive bowel sounds soft and nontender without palpable masses or organomegaly. There was no guarding or rebound. Distention is slightly improved with initiation of the nasogastric tube and suction. Symptomatically she feels better Extremities: The upper and lower extremities have evidence of edema harvest site is intact there is some bruising that is noted especially on the left groin area. IV sites are intact. Skin: With the nursing staff the buttocks pressure ulcerations are evaluated which are showing improvement. The ulceration on the skin fold above her buttocks is also evaluated and appears to be improving. Also improvement of the ulceration to the right wrist area. Skin however is now having some blistering due to her hypoalbuminemia and excessive volume. Sternal wound dressing is dry and intact. Neuro: Comfortable at this time pain level 2 after the PEG tube placement, no acute changes neurologically - Labs CBC & Chem 7: 01/07/18 05:01 01/07/18 05:01 Labs: Abnormal Lab Results - Last 24 Hours (Table) 01/07/18 01/07/18 01/07/18 Range/Units 05:01 05:01 05:01 WBC 11.4 H (3.8-10.6) k/uL RBC 2.93 L (3.80-5.40) m/uL Hgb 7.8 L (11.4-16.0) gm/dL Hct 25.3 L (34.0-46.0) % MCHC 30.9 L (31.0-37.0) g/dL RDW 20.7 H (11.5-15.5) % PT 12.9 H (9.0-12.0) sec INR 1.4 H (<1.2) ABG pH (7.35-7.45) ABG pCO2 (35-45) mmHg ABG pO2 (83-108) mmHg ABG O2 Saturation (94-97) % BUN 35 H (7-17) mg/dL POC Glucose (mg/dL) (75-99) mg/dL 01/07/18 01/07/18 01/07/18 Range/Units 05:42 08:28 11:56 WBC (3.8-10.6) k/uL RBC (3.80-5.40) m/uL Hgb (11.4-16.0) gm/dL Hct (34.0-46.0) % MCHC (31.0-37.0) g/dL RDW (11.5-15.5) % PT (9.0-12.0) sec INR (<1.2) ABG pH 7.51 H (7.35-7.45) ABG pCO2 27 L (35-45) mmHg ABG pO2 140 H (83-108) mmHg ABG O2 Saturation 100.0 H (94-97) % BUN (7-17) mg/dL POC Glucose (mg/dL) 107 H 101 H (75-99) mg/dL 01/07/18 Range/Units 18:39 WBC (3.8-10.6) k/uL RBC (3.80-5.40) m/uL Hgb (11.4-16.0) gm/dL Hct (34.0-46.0) % MCHC (31.0-37.0) g/dL RDW (11.5-15.5) % PT (9.0-12.0) sec INR (<1.2) ABG pH (7.35-7.45) ABG pCO2 (35-45) mmHg ABG pO2 (83-108) mmHg ABG O2 Saturation (94-97) % BUN (7-17) mg/dL POC Glucose (mg/dL) 108 H (75-99) mg/dL Laboratory Results WBC 11.4 k/uL (3.8-10.6) H 01/07/18 05:01 RBC 2.93 m/uL (3.80-5.40) L 01/07/18 05:01 Hgb 7.8 gm/dL (11.4-16.0) L 01/07/18 05:01 Hct 25.3 % (34.0-46.0) L 01/07/18 05:01 MCV 86.4 fL (80.0-100.0) 01/07/18 05:01 MCH 26.7 pg (25.0-35.0) 01/07/18 05:01 MCHC 30.9 g/dL (31.0-37.0) L 01/07/18 05:01 RDW 20.7 % (11.5-15.5) H 01/07/18 05:01 Plt Count 289 k/uL (150-450) 01/07/18 05:01 Neutrophils % 85 % 01/06/18 05:10 Neutrophils % (Manual) 98 % 12/05/17 04:25 Lymphocytes % 6 % 01/06/18 05:10 Lymphocytes % (Manual) 1 % 12/05/17 04:25 Monocytes % 5 % 01/06/18 05:10 Monocytes % (Manual) 1 % 12/05/17 04:25 Eosinophils % 2 % 01/06/18 05:10 Basophils % 0 % 01/06/18 05:10 Myelocytes % 1 % 12/03/17 04:15 Neutrophils # 9.7 k/uL (1.3-7.7) H 01/06/18 05:10 Neutrophils # (Manual) 26.95 k/uL (1.3-7.7) H 12/05/17 04:25 Lymphocytes # 0.7 k/uL (1.0-4.8) L 01/06/18 05:10 Lymphocytes # (Manual) 0.28 k/uL (1.0-4.8) L 12/05/17 04:25 Monocytes # 0.6 k/uL (0-1.0) 01/06/18 05:10 Monocytes # (Manual) 0.28 k/uL (0-1.0) 12/05/17 04:25 Eosinophils # 0.2 k/uL (0-0.7) 01/06/18 05:10 Basophils # 0.0 k/uL (0-0.2) 01/06/18 05:10 Myelocytes # (Manual) 0.17 k/uL (0) H 12/03/17 04:15 Nucleated RBCs 0 /100 WBC (0-0) 12/05/17 04:25 Manual Slide Review Performed 12/05/17 04:25 Polychromasia Present 12/03/17 04:15 Hypochromasia Moderate 01/07/18 05:01 Poikilocytosis Slight 01/07/18 05:01 Anisocytosis Moderate 01/07/18 05:01 Microcytosis Slight 01/05/18 05:00 Target Cells Present 12/03/17 04:15 PT 12.9 sec (9.0-12.0) H 01/07/18 05:01 INR 1.4 (<1.2) H 01/07/18 05:01 APTT 23.9 sec (22.0-30.0) 12/21/17 04:50 Fibrinogen 334 mg/dL (200-500) 11/26/17 04:22 Sample Site JOSEPH 01/07/18 08:28 ABG pH 7.51 (7.35-7.45) H 01/07/18 08:28 ABG pCO2 27 mmHg (35-45) L 01/07/18 08:28 ABG pO2 140 mmHg (83-108) H 01/07/18 08:28 ABG HCO3 21 mmol/L (21-25) 01/07/18 08:28 ABG Total CO2 22 mmol/L (19-24) 01/07/18 08:28 ABG O2 Saturation 100.0 % (94-97) H 01/07/18 08:28 ABG Base Excess -1.7 mmol/L 01/07/18 08:28 ABG Hematocrit 24 % (34.0-46.0) L 11/25/17 17:37 Robbi Test Yes 01/07/18 08:28 ABG Sodium 144 mmol/L (135-146) 11/25/17 17:37 ABG Potassium 3.8 mmol/L (3.4-4.5) 11/25/17 17:37 ABG Ionized Calcium 4.0 mg/dL (4.5-5.3) L 11/25/17 17:37 ABG Glucose 139 mg/dL (75-99) H 11/25/17 17:37 ABG Lactic Acid 2.8 mmol/L (0.5-1.6) H* 11/25/17 17:37 Hemoglobin 7.8 gm/dL (11.4-16.0) L 11/25/17 17:37 FiO2 35 % 01/07/18 08:28 Sodium 138 mmol/L (137-145) 01/07/18 05:01 Potassium 3.7 mmol/L (3.5-5.1) 01/07/18 05:01 Chloride 100 mmol/L (98-107) 01/07/18 05:01 Carbon Dioxide 28 mmol/L (22-30) 01/07/18 05:01 Anion Gap 10 mmol/L 01/07/18 05:01 BUN 35 mg/dL (7-17) H 01/07/18 05:01 Creatinine 0.80 mg/dL (0.52-1.04) 01/07/18 05:01 Est GFR (MDRD) Af Amer >60 (>60 ml/min/1.73 sqM) 12/07/17 04:00 Est GFR (MDRD) Non-Af >60 (>60 ml/min/1.73 sqM) 12/07/17 04:00 Est GFR (CKD-EPI)AfAm 88 (>60 ml/min/1.73 sqM) 01/07/18 05:01 Est GFR (CKD-EPI)NonAf 77 (>60 ml/min/1.73 sqM) 01/07/18 05:01 Glucose 91 mg/dL (74-99) 01/07/18 05:01 POC Glucose (mg/dL) 99 mg/dL (75-99) 01/07/18 23:50 POC Glu Au Pair Lenka Mendoza 01/07/18 23:50 Calcium 8.5 mg/dL (8.4-10.2) 01/07/18 05:01 Ionized Calcium Bruce 4.7 mg/dL (4.5-5.3) 12/11/17 15:45 Phosphorus 3.9 mg/dL (2.5-4.5) 01/05/18 05:00 Magnesium 2.0 mg/dL (1.6-2.3) 01/05/18 05:00 Total Bilirubin 0.4 mg/dL (0.2-1.3) 12/31/17 04:30 AST 36 U/L (14-36) 12/31/17 04:30 ALT 34 U/L (9-52) 12/31/17 04:30 Alkaline Phosphatase 88 U/L (38-126) 12/31/17 04:30 Total Protein 6.2 g/dL (6.3-8.2) L 12/31/17 04:30 Albumin 3.1 g/dL (3.5-5.0) L 12/31/17 04:30 Prealbumin 7.0 mg/dL (18.0-42.0) L 12/27/17 05:10 Triglycerides 130 mg/dL (<150) 12/29/17 11:45 Cholesterol 80 mg/dL (<200) 12/29/17 11:45 LDL Cholesterol, Calc 34 mg/dL (0-99) 12/29/17 11:45 HDL Cholesterol 20 mg/dL (40-60) L 12/29/17 11:45 Arterial Blood Potassium 3.8 mmol/L (3.4-4.5) 11/25/17 17:37 Arterial Blood Glucose 139 mg/dL (75-99) H 11/25/17 17:37 Urine Color Yellow 12/04/17 10:00 Urine Appearance Cloudy (Clear) H 12/04/17 10:00 Urine pH 5.5 (5.0-8.0) 12/04/17 10:00 Ur Specific Micro 1.015 (1.001-1.035) 12/04/17 10:00 Urine Protein Trace (Negative) H 12/04/17 10:00 Urine Glucose (UA) Negative (Negative) 12/04/17 10:00 Urine Ketones Negative (Negative) 12/04/17 10:00 Urine Blood Negative (Negative) 12/04/17 10:00 Urine Nitrite Negative (Negative) 12/04/17 10:00 Urine Bilirubin Negative (Negative) 12/04/17 10:00 Urine Urobilinogen <2.0 mg/dL (<2.0) 12/04/17 10:00 Ur Leukocyte Esterase Negative (Negative) 12/04/17 10:00 Urine RBC 7 /hpf (0-5) H 12/04/17 10:00 Urine WBC 1 /hpf (0-5) 12/04/17 10:00 Ur Squamous Epith Cells 8 /hpf (0-4) H 12/04/17 10:00 Urine Bacteria Occasional /hpf (None) H 12/04/17 10:00 Urine Mucus Rare /hpf (None) H 12/04/17 10:00 Fluid Source Bronchial Wash 12/15/17 10:40 Fluid Color Colorless 12/15/17 10:40 Fluid Appearance Cloudy 12/15/17 10:40 Fluid RBC 150 /uL 12/15/17 10:40 Fluid Nucleated Cells 6900 /uL 12/15/17 10:40 Fluid Polynuclear WBCs 95 % 12/15/17 10:40 Fluid Mononuclear WBCs 5 % 12/15/17 10:40 Stl Cryptosporidium Ag Negative (Negative) 01/02/18 06:00 Stool Giardia Source Stool 01/02/18 06:00 Stl Giardia Antigen Negative (Negative) 01/02/18 06:00 Vancomycin Trough 22.9 ug/mL 01/01/18 04:45 Random Vancomycin 21.2 ug/mL 12/16/17 04:15 Heparin-Ind Plt Ab Scrn 0.231 OD (<0.4) 11/29/17 04:50 C. difficile (EIA) Intrp Negative (Negative) 01/02/18 06:00 Virus Source See Below 12/15/17 10:40 Viral Test See Below 12/15/17 10:40 Virus Analysis Interp See Below 12/15/17 10:40 Blood Type A Positive 01/05/18 08:30 Blood Type Recheck No 01/05/18 08:30 Antibody Screen NEGATIVE 01/05/18 08:30 Crossmatch See Detail 12/14/17 10:10 Transfuse Cryo [id number] 11/26/17 00:39 Transfuse Plasma 12/15/2017 12/15/17 05:51 Transfuse Platelets [id number] 11/25/17 14:55 Spec Expiration Date 01/08/2018 - 2330 01/05/18 08:30 Microbiology 01/02/18 06:00 Stool Stool Culture - Final 12/15/17 10:40 Bronchial Washings - Left Acid Fast Bacilli Smear - Final 12/15/17 10:40 Bronchial Washings - Left Acid Fast Bacilli Culture - Preliminary 12/10/17 10:45 Chest Acid Fast Bacilli Smear - Final 12/10/17 10:45 Chest Acid Fast Bacilli Culture - Preliminary 12/10/17 10:50 Chest Acid Fast Bacilli Smear - Final 12/10/17 10:50 Chest Acid Fast Bacilli Culture - Preliminary 12/10/17 10:40 Chest Fungal Culture - Preliminary 12/10/17 10:45 Chest Fungal Culture - Preliminary 12/10/17 10:50 Chest Fungal Culture - Preliminary 01/02/18 06:00 Stool Stool for WBCs - Final 12/24/17 11:30 Catheter Tip Catheter Tip Culture - Final 12/15/17 10:40 Bronchial Washings - Left Fungal Culture - Preliminary Rachana albicans 12/15/17 10:40 Bronchial Washings - Left Gram Stain - Final 12/15/17 10:40 Bronchial Washings - Left Bronchial Washings Culture - Final Rachana albicans 12/14/17 21:30 Sputum Gram Stain - Final 12/14/17 21:30 Sputum Sputum Culture - Final Rachana albicans 12/10/17 10:50 Chest Anaerobic Culture - Final 12/10/17 10:40 Chest Anaerobic Culture - Final 12/10/17 10:45 Chest Anaerobic Culture - Final 12/13/17 05:27 Urine,Catheterized Urine Culture - Final 12/10/17 10:40 Chest Gram Stain - Final 12/10/17 10:40 Chest Wound Culture - Final Serratia marcescens 12/10/17 10:45 Chest Gram Stain - Final 12/10/17 10:45 Chest Tissue Culture - Final Serratia marcescens 12/10/17 10:50 Chest Gram Stain - Final 12/10/17 10:50 Chest Tissue Culture - Final Serratia marcescens 12/07/17 15:40 Chest Gram Stain - Final 12/07/17 15:40 Chest Wound Culture - Final Serratia marcescens 12/04/17 10:00 Urine,Voided Urine Culture - Final Escherichia coli Serratia marcescens 11/26/17 04:00 Sputum Gram Stain - Final 11/26/17 04:00 Sputum Sputum Culture - Final Assessment and Plan (1) Severe mitral regurgitation Current Visit: Yes Status: Chronic Code(s): I34.0 - NONRHEUMATIC MITRAL ( VALVE) INSUFFICIENCY SNOMED Code(s): 92352662 (2) CAD (coronary artery disease) Current Visit: Yes Status: Chronic Code(s): I25.10 - ATHSCL HEART DISEASE OF [place] CORONARY ARTERY W/O ANG PCTRS SNOMED Code(s): 58570340 (3) Acute blood loss as cause of postoperative anemia Current Visit: Yes Status: Acute Code(s): D62 - ACUTE POSTHEMORRHAGIC ANEMIA SNOMED Code(s): 90413465471719007 (4) Pressure ulcer of contiguous region involving back and buttock, stage 3 Current Visit: Yes Status: Acute Code(s): L89.43 - PRESSR ULCER OF CONTIG SITE OF BACK, BUTTOCK AND HIP, STG 3 SNOMED Code(s): 607220435 (5) Sternal wound dehiscence Narrative/Plan: 67-year-old woman presents to Hospital for treatment of her severe mitral irritation. Underwent mitral valve replacement, coronary artery bypass grafting 1, Maze procedure and clipping of the left atrial appendage with a complication of the left ventricular wall tear. The patient has had a very protracted recovery she is now day 14 post operative and is still having difficulty with her respiratory status requiring BiPAP. The patient's nutritional status and underlying comorbidities have complicated her care. She now has evidence of the sternal dehiscence with evidence of gram negatives bacilli being found at the site. There is evidence of urinary tract infection with E. coli and Serratia. This Serratia species is somewhat resistant and consequently we'll alter the current antimicrobial therapy from Zosyn to meropenem to ensure coverage for other potential pathogens that are resistant that could be in the sternal wound while we await cultures. The patient will be going to the operating room tomorrow for debridement and wound VAC placement. The cultures were further direct the overall course of antibiotics. Urinary infection appears to be doing somewhat better. The patient fortunately is comfortable and doing well with her BiPAP. 12/10/2017 the patient is status post surgery and actually is feeling a bit better this afternoon than yesterday. Her pain is quite well controlled. She is not on BiPAP. She is less short of breath. Wound culture has verified the Serratia marcescens to the sternal wound. We'll constantly continue the current course of meropenem due to some of the resistance patterns or seeing with the species. Continue local care at this point time with the negative pressure system to the sternal wound. The plastic surgery consult is being requested for reconstruction of her chest. She will require a course of intravenous antibiotic therapy given her complex infection. Dual-lumen PICC is already in place. We'll repeat the discharge planners as to her place of rehab. 12/11/2017 the patient is metabolically stable but is having difficulties with her respiratory status and is now back on BiPAP which has been intermittent over the last multiple days. Negative pressure therapy remains intact and the sternum and we await the plastic surgery intervention. 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 Continue supportive care, and nutritional supplements as possible to improve for tissue healing. 12/13/2017 patient is on BiPAP. She is comfortable at this time. Receiving her intravenous antibiotic therapy without difficulties. At this time the surgeon present in a sterile fashion the wound VAC is removed. Surgeon evaluates and then the wound VAC is reapplied with 2 of the white foam, periwound protected with DuoDERM no difficulty with the seal. Merrem continues. 12/15/2017 the patient has had marked worsening of her status in that she had respiratory failure requiring reintubation and mechanical ventilation. She is now sedated and comfortable but has had some hemodynamic instability and is now back on vasopressor therapy. Bronchoscopy is performed and suctioning of mucous plugs as allowed some improvement of her pulmonary status. Further cultures are process. Meropenem and vancomycin continue for the isolated Serratia and concerns for resistant gram-positive infection at this time. Plastic surgery evaluation is in process and surgical plans for later this week appear to be possible. 12/16/2017 reveals the patient to be stable from the last 24 hours. Her ventilatory settings are similar. She's currently not on vasopressor therapy. She is tolerating current antibiotic therapy well with no difficulties with rash and diarrhea or marked changes of her hematological parameters. She's had no further active bleeding. Sputum culture with gram-positive cocci seen vancomycin was added we await final cultures. 12/20/2017 patient remained stable and is being prepped for her sternal reconstruction surgery tomorrow. She's not on vasopressor therapy, and vent settings are stable. Most recent bronchoscopy showed mucous plug no evidence of any new pathogens except yeast was found likely from upper airways. Fluconazole was added given her significant risks, although fungal pneumonia is not occurring at this time. At the time of reconstruction repeat samplings from her sternum will be helpful to help direct the course of antibiotic therapy , pathology and culture of the sternum will be helpful. Remains on the meropenem and vancomycin at this time. 12/21/2017 the patient is status post the sternal reconstruction with muscle flap, reportedly is only a partial closure at this time. However visit. The cardiac structure is completely covered. The patient is showing improvement in her cardiopulmonary status today. No active bleeding is noted. She is tolerating current antibiotic therapy well with meropenem and vancomycin. Await final culture and pathological data to help derive the course of her antibiotic therapy 12/23/2017 reveals the patient to be improved, she has been extubated and tolerating BiPAP well. The case is discussed with the cardiothoracic surgeon. The muscle flap was then performed and there is a biological skin substitute over the flap. She related that the plastic surgeon would not allow a wound VAC to be placed for approximately 10 days after the surgery. We will monitor. Continue current antibiotic therapy planning a multiweek course of therapy for the complex sternal wound infection. 12/24/2017 reveals the patient to have further improvement that she has had a tracheostomy placed. This will hopefully help her long-term weaning situation and also help with the nutritional difficulties. As she has improvement of her status hopefully the significant difference with her skin from the edema low albumin and blistering will improve. Receiving extensive antibiotic therapy for the sternal wound dehiscence will continue with the meropenem and vancomycin at this time. 12/25/2017 reveals the patient to have some improvement in the last 24 hours. She's doing well with a tracheostomy and is on 35% FiO2. Pain control is well at this point in time. Her spitting edema seems to be slightly improving and does not have as many blisters that she was having. Still does have anasarca but appears to be a bit less tight than she was a day ago. Her wounds are improving with the local wound care. Antibiotic therapy continues with meropenem and vancomycin for the sternal wound dehiscence and infection. Dressing changes have been per the cardiothoracic team to the chest wound. The abdominal wound is healing well and is having some serous drainage related to the anasarca. Hopefully with improving edema status and improve nutritional status anasarca will resolve. 12/27/2017 reveals a patient with further improvement. Her anasarca is improving and she is having less edema. She is tolerating the intravenous antibiotic therapy of meropenem and vancomycin for her sternal wound dehiscence. Leukocytosis in general is improved. No other new infections are noted. She had a wound VAC dressing change today of the sternal area. 12/28/2017 reveals the patient to have developed some bowel distention and concerns to ileus. She's been seen by general surgery. He will determine if she needs to have her Dobbhoff removed and an NG tube place. The patient has significant hypo albuminemia and is in need of the extensive supplementation, consequently TPN was requested per the surgeon. She will remain on her antibiotic therapy planning 6 weeks for the complex sternal dehiscence. Cardiothoracic surgery have changed her VAC dressing to her sternal wound. 12/29/2017 patient continues to tolerate antibiotic therapy well. Orders have been clarified for the 6 weeks of meropenem and vancomycin. cardiothoracic is in charge of the dressing changes to the complex sternal dehiscence wound. Tolerating TPN well with overall goal to improve her very low protein which will help her significant and extensive tissue edema. 12/30/2017 patient continues to have some improvement, if she is improving [facility] of physical therapy.she is doing better from her ileus and TPN is being well-tolerated.will be on intravenous antibiotic therapy through 01/21/2018 12/31/2017 patient is stable at this time status post the NG tube has been placed for her ileus. Nutrition via TPN. Antibiotic therapy with the meropenem and vancomycin continues through 01/21/2018. Follow up cultures as indicated. Wound VAC is being changed as per cardiothoracic surgery. The pressure ulcerations to the buttocks area and posterior scalp are improving. 01/03/2018 reveals the patient to be feeling somewhat better today. Pain level is 0. Tolerating nutrition well at this point in time and has been cleared for a PEG tube to be placed to allow easier nutrition when she is ready for [facility]. He has tolerated IMV trial today quite well. Antibiotic therapy continues to 01/21/2018. 01/04/2018 H and doing well on her current CPAP trials. PEG tube tomorrow. If this occurs she will then be able to have anticoagulation, cardioversion. Once cardioversion occurs in her heart rate improve she would then be a candidate [facility]. Antibiotic therapy until 01/21/2018 01/05/2018 patient has had her PEG tube placed today. Other than some pain at that site she's doing quite well. Tolerating multiple hours of CPAP today. There was a momentary standing with a multiperson assist. When she is anticoagulated will then be able to have a cardioversion after which she will be transferred for her long-term weaning at [facility] antibiotic therapy through 01/21/2018 01/06/2018 patient is status post PEG tube placement. Is receiving 20 mL/h of nutrition and tolerating it well. As she is improving and will move to her goal. Enhance nutrition will be an important part of her overall healing and eventual long-term weaning and eventual decannulation from her tracheostomy. For her sternal dehiscence she is on antibiotic therapy through 01/21/2018. Her pain control is adequate. Her spirits are good. She is somewhat anxious about standing with worries about falling but is doing better today. 01/07/2018 patient is doing better today with improved pain. Has been seen by cardiology and may not need cardioversion noted her heart rate is improved if she should have some further recovery after her PEG tube is placed in improve nutrition. Denies new acute difficulties at this time. As she improves will eventually be transitioned to the long-term weaning facility at her antibiotic therapy continues through 01/21/2018. Current Visit: Yes Status: Acute Code(s): T81.32XA - DISRUPTION OF INTERNAL OPERATION (SURGICAL) WOUND, NEC, INIT SNOMED Code(s): 95081666
[2018-01-08] MEDS: INSULIN ASPART 100 UNIT/ML 1 ML 10 ML VIAL SQ SCH ×4 (00:58→17:28)
[2018-01-08] MEDS: MEROPENEM 1 GM in SODIUM CHLORIDE 0.9% 100 ML IVPB SCH ×3 (01:00→17:40)
[2018-01-08] MEDS: HEPARIN SODIUM,PORCINE 5,000 UNIT/ML 1 ML VIAL SQ SCH ×3 (01:00→17:28)
[2018-01-08] MEDS: METOCLOPRAMIDE 5 MG/ML 2 ML VIAL IVP SCH ×4 (01:00→17:40)
[2018-01-08] MEDS: IPRATROPIUM-ALBUTEROL 3 ML NEB INHALATION SCH ×6 (03:02→23:35)
[2018-01-08 04:50] LABS: Anisocytosis Moderate; Basophils % (A) 0 %; Eosinophils # (A) 0.2 k/uL (0-0.7); Eosinophils % (A) 2 %; HCT 25.1 % (34.0-46.0); HGB 7.9 gm/dL (11.4-16.0); Hypochromasia Moderate; Lymphocytes # (A) 0.5 k/uL (1.0-4.8); Lymphocytes % (A) 5 %; MCH 27.3 pg (25.0-35.0); MCHC 31.4 g/dL (31.0-37.0); MCV 86.9 fL (80.0-100.0); Mean Platelet Volume 7.2; Monocytes # (A) 0.6 k/uL (0-1.0); Monocytes % (A) 5 %; Neutrophils # (A) 9.8 k/uL (1.3-7.7); Neutrophils % (A) 87 %; Platelet Count 280 k/uL (150-450); Poikilocytosis Slight; RBC 2.89 m/uL (3.80-5.40); RDW 20.8 % (11.5-15.5); WBC 11.3 k/uL (3.8-10.6)
[2018-01-08 04:52] LABS: INR 1.6 (<1.2)
[2018-01-08 04:56] LABS: Calcium 8.7 mg/dL (8.4-10.2); Magnesium 2.3 mg/dL (1.6-2.3); Phosphorus 3.6 mg/dL (2.5-4.5); Potassium 3.5 mmol/L (3.5-5.1)
--- NOTE | 2018-01-08 06:36 | XR ---
EXAMINATION TYPE: XR chest 1V portable DATE OF EXAM: 01/08/2018 HISTORY: post cardiac surgery. REFERENCE: Previous study dated 01/07/2018. FINDINGS: There is a tracheostomy tube in place. Its tip overlies the tracheal air column in this sin gle frontal projection. There has been previous mediastinal surgery. There is a left subclavian stent in place. The heart is enlarged. There has been a valvular replacement. There is left basilar airspace disease. There is a small left effusion. The overall appearance does not appear to have changed significantly . IMPRESSION: NO SIGNIFICANT INTERVAL CHANGE IN THE APPEARANCE OF THE CHEST.
[2018-01-08] MEDS ORDERED: POTASSIUM CHLORIDE ER 20 MEQ TAB.ER PO SCH (07:00)
[2018-01-08] MEDS: BUDESONIDE 1 MG/2 ML NEBU INHALATION SCH ×2 (07:16→19:55)
[2018-01-08] MEDS: DILTIAZEM ORAL 60 MG TAB PO SCH ×3 (07:17→21:02)
[2018-01-08 09:05] LABS: ABG Base Excess 5.4 mmol/L; ABG HCO3 29 mmol/L (21-25); ABG Oxygen Saturation 99.4 % (94-97); ABG PCO2 42 mmHg (35-45); ABG PH 7.46 (7.35-7.45); ABG PO2 116 mmHg (83-108); ABG TCO2 31 mmol/L (19-24)
[2018-01-08] MEDS: POTASSIUM BICARBONATE/CIT AC 20 MEQ TABLET.EFF NG-TUBE SCH ×3 (09:07→14:08)
[2018-01-08] MEDS: PANTOPRAZOLE 40 MG TABLET PO SCH (09:07)
[2018-01-08] MEDS: AMIODARONE 200 MG TAB PO SCH ×2 (09:07→20:42)
[2018-01-08] MEDS: ATORVASTATIN 40 MG TAB PO SCH (09:08)
[2018-01-08] MEDS: METOPROLOL TARTRATE 50 MG TAB PEG/G-TUBE SCH ×2 (09:08→20:42)
[2018-01-08] MEDS: ASPIRIN 81 MG PO SCH (09:08)
[2018-01-08] MEDS: LACTOBACILLUS ACIDOPH & BULGAR 1 EACH PACKET PO SCH ×3 (09:08→21:02)
[2018-01-08] MEDS: DEXTROSE 5%-0.45% NACL 1,000 ML IV SCH (09:09)
--- NOTE | 2018-01-08 11:15 | P.PN ---
Subjective Progress Note Date: 01/08/18 Principal diagnosis: Status post CABG and mitral valve replacement postoperative day # 44 This is a 67-year-old female, status post 1 vessel bypass surgery and mitral valve replacement, patient is postoperative day #39. Patient also had surgical flap of the sternal 1 as she developed wound dehiscence and infection. Postoperative day #13. Patient also underwent tracheostomy and she is postoperative day #10. Patient remains on mechanical ventilation, continues to have chronic atelectasis and possible pneumonia in the left lower lobe, remains on assist control mode of mechanical ventilation, and today I will plan to try her on IMV and pressure support hoping to cut down the IMV rate gradually and possibly keep her on pressure support only. In the meantime the patient has been [facility] to their facility. Cardiac-mcguire the patient remains in atrial flutter, ventricular rate is about 120. That is being addressed by cardiology on the case. Her ventilator settings are tidal volume of 400 assist control rate of 20 FiO2 of 35 % PEEP of 5. Toprol pressure is about 20. Chest x-ray as noted above. Suspect some component of mild congestive heart failure. And left lower lobe atelectasis. Labs were all reviewed, ABG showed a pO2 of 121 pCO2 of 38 pH of 7.52 basic metabolic profile is normal BUN is 43 creatinine 0.91 WBC count is 13.7 hemoglobin is 8.1. Reevaluated today on 01/04/2018, patient remains on mechanical ventilation, with able to elevate many hours of pressure support of 12 and IMV of 6 yesterday. Today I plan to try pressure support of 12 and CPAP. Patient is scheduled to have a PEG tube placement is also scheduled to have cardioversion after a good course of anticoagulation and PEG tube placement. Hopefully this will be all done this week, and then we can potentially consider transferring the [facility] a [facility]. ABG today showed a pO2 of 99 pCO2 of 42 pH of 7.49. Rest of the labs were noted to be unremarkable. Chest x-ray is basically the same, continues to show mild congestive changes, and left retrocardiac opacity with left lower lobe atelectasis. Patient was reevaluated today on 01/05/2018, remains on mechanical ventilation, plan to give her another trial today of IMV pressure support. Patient did relatively well yesterday, but still not quite ready for extubation. Today she had a PEG tube placed by Dr. Aldridge, and she may require cardioversion tomorrow. Overall the patient continues to do about the same. Her chest x-ray continues to show some left perihilar infiltrate and left lower lobe atelectasis. Labs including CBC ABG and basic metabolic profile were all reviewed. Her ABG showed a pO2 of 115 pCO2 of 41 pH of 7.47 on 35% FiO2. Hemoglobin is 8.3 basic metabolic profile is normal. Renal profile is normal. Reevaluated today on 01/06/2018, patient is doing well, PEG tube was placed yesterday uneventfully. Patient will go on to another trial of weaning utilizing a pressure support today with CPAP. She will be on a pressure support of 12. Patient may undergo cardioversion tomorrow, waiting to be fully anticoagulated. Chest x-ray continues to show some atelectasis at the left base , but her ABG is excellent and her labs are excellent. ABG showed a pO2 of 116 pCO2 of 37 pH of 7.49 and this was on 35% FiO2 and assist control mode of mechanical ventilation. Her CBC showed a hemoglobin of 8 WBC count of 11.4. Basic metabolic profile and renal profile are normal. Reevaluated today on 01/07/2018, patient continues to do relatively well, remains in atrial flutter but her rate now is 110. Patient is tolerating enteral feeding via PEG tube. Tolerating long hours of pressure support of 12. And CPAP. He tried to go on a pressure support of 10, however significant drop was noted in her tidal volumes, hence I kept her on pressure support of 12 for today. Chest x-ray is basically about the same showing chronic changes in the left lower lobe. ABG today showed a pO2 of 140 pCO2 of 27 pH of 7.51 and her basic metabolic profile is relatively normal renal profile is normal. On 01/08/2018, patient remains on mechanical ventilation, she is on assist control mode of mechanical ventilation at night, and using today she is on pressure support and CPAP with pressure support of 12. Seems to be tolerating that quite well, however unable to go down below 12 since her tidal volumes become quite low when the patient is placed on pressure support of 10 or 8. Hence we will continue with daily trials on pressure support of 12, and hopefully in the next few days would be able to cut it down lower. Chest x-ray was reviewed no major change in the left lower lobe, labs were all reviewed. Hemodynamically the patient is stable, she is still in atrial flutter with a rate of 110. Objective - Vital Signs Vital signs: Vital Signs Temp 97.8 F 01/08/18 08:00 Pulse 109 H 01/08/18 09:00 Resp 19 01/08/18 09:00 BP 106/58 01/04/18 08:59 Pulse Ox 98 01/08/18 09:00 Intake & Output 01/07/18 01/08/18 01/08/18 18:59 06:59 18:59 Intake Total 946 1156 329 Output Total 715 775 200 Balance 231 381 129 Weight 97.6 kg 99.2 kg 99.2 kg Intake: IV 346 506 139 Dextrose 5%-0.45% NaCl 1, 110 120 30 000 ml @ 10 mls/hr IV . Q24H [facility] Rx#:[id number] Meropenem 1 gm In Sodium 200 100 100 Chloride 0.9% 100 ml @ 200 mls/hr IVPB Q8HR [facility] Rx#:[id number] Pressure Bag 36 36 9 Vancomycin 1,500 mg In 250 Sodium Chloride 0.9% 250 ml @ 125 mls/hr IVPB Q36H [facility] Rx#:[id number] Tube Feeding 600 560 160 Other 90 30 Output: Drainage 330 75 Right Abdomen 330 75 Urine 715 445 125 Other: Voiding Method Indwelling Catheter Indwelling Catheter ABP, PAP, CO, CI - Last Documented Arterial Blood Pressure 53/53 Pulmonary Artery Pressure 38/33 Cardiac Output 5.8 Cardiac Index 2.9 - Exam General appearance: Present: cooperative, no acute distress, obese, - Neck Details: Neck is supple, no JVD, no lymphadenopathy. Tracheostomy tube is midline and intact, sutures in place. - Respiratory Details: Lungs sounds essentially diminished at the left base, Respirations are symmetrical and nonlabored with mechanical ventilator support. - Cardiovascular Details: Pain is tachycardic at regular rate and rhythm seems to be regular. This may be a a flutter with 2 to one block. S1 and S2 present, negative for S3 , gallop or murmur. - Gastrointestinal Gastrointestinal Comment(s): Abdomen is soft, nontender, no megaly, no rebound, PEG tube is intact. - Genitourinary Genitourinary Comment(s): Mason catheter for accurate I&O. Draining clear yellow urine. - Integumentary Integumentary Comment(s): Skin is warm and dry. No clubbing or cyanosis. Both lower extremities are wrapped with Vance bandage. - Neurologic Neurologic Comment(s): Alert and following verbal commands. No gross focal neurologic deficit noted. - Musculoskeletal Musculoskeletal: Present: generalized weakness, strength equal bilaterally - Psychiatric Psychiatric Comment(s): Psychiatric: Normal mood, affect, and mental status examination noted. - Labs CBC & Chem 7: 01/08/18 04:30 01/08/18 04:30 Labs: Abnormal Lab Results - Last 24 Hours (Table) 01/07/18 01/07/18 01/08/18 Range/Units 11:56 18:39 04:30 WBC (3.8-10.6) k/uL RBC (3.80-5.40) m/uL Hgb (11.4-16.0) gm/dL Hct (34.0-46.0) % RDW (11.5-15.5) % Neutrophils # (1.3-7.7) k/uL Lymphocytes # (1.0-4.8) k/uL PT (9.0-12.0) sec INR (<1.2) ABG pH (7.35-7.45) ABG pO2 (83-108) mmHg ABG HCO3 (21-25) mmol/L ABG Total CO2 (19-24) mmol/L ABG O2 Saturation (94-97) % BUN 37 H (7-17) mg/dL Glucose 112 H (74-99) mg/dL POC Glucose (mg/dL) 101 H 108 H (75-99) mg/dL 01/08/18 01/08/18 01/08/18 Range/Units 04:30 04:30 07:35 WBC 11.3 H (3.8-10.6) k/uL RBC 2.89 L (3.80-5.40) m/uL Hgb 7.9 L (11.4-16.0) gm/dL Hct 25.1 L (34.0-46.0) % RDW 20.8 H (11.5-15.5) % Neutrophils # 9.8 H (1.3-7.7) k/uL Lymphocytes # 0.5 L (1.0-4.8) k/uL PT 15.0 H (9.0-12.0) sec INR 1.6 H (<1.2) ABG pH 7.46 H (7.35-7.45) ABG pO2 116 H (83-108) mmHg ABG HCO3 29 H (21-25) mmol/L ABG Total CO2 31 H (19-24) mmol/L ABG O2 Saturation 99.4 H (94-97) % BUN (7-17) mg/dL Glucose (74-99) mg/dL POC Glucose (mg/dL) (75-99) mg/dL Assessment and Plan Assessment: 1 coronary artery bypass surgery with single-vessel bypass and mitral valve replacement/bioprosthetic valve. The patient is postop day # 44 2 sternal wound infection with Serratia marcescens with subsequent dehiscence. The patient underwent wound debridement with subsequent muscle flap and the patient is postop day # 18 3 prolonged ventilator dependent respiratory failure, status post tracheostomy tube insertion and the patient is postop day # 15 Patient remains on assist control mode of ventilation . We will try again IMV pressure support mode of mechanical ventilation and gradually transition to pressure support only with CPAP. 4 acute on chronic respiratory failure, multifactorial. The patient's sternal wound and the muscle flap is healing for now. 5 increased edema both upper and lower extremities, improving 6 tachycardia with an a flutter rhythm, cardiology is on the case. She is mainly maintained on oral medications. No plans to cardiovert per cardiology 7 peripheral vascular disease 8 left subclavian artery stenosis status post insertion of an endovascular stent 9 anemia, a expected outcome of prolonged ICU stay and multiple surgeries 10 ileus, improving patient is on enteral feeding 11 left lung collapse status post bronchoscopy and therapeutic it was suctioning. Patient has Rachana within the sputum currently on Diflucan. Most recent chest x-ray shows adequate rest of both lungs and there is some mild component of pulmonary congestion. 12 hypertension 13 hyperlipidemia 14 anemia multifactorial with a hemoglobin level of 8.3 today 15 status post PEG tube placement postoperative day #3 Recommendation: Continue ventilatory support, continue antibiotics, nutritional support, continue enteral feeding via PEG tube, continue daily trials of pressure support and CPAP as a weaning modality, continue physical therapy, will follow closely. Discussed her condition again with her daughter at bedside. Time with Patient: Less than 30
[2018-01-08 11:53] LABS: Glucose,Whole Blood 109 mg/dL (75-99)
--- NOTE | 2018-01-08 12:23 | P.PN ---
Subjective Progress Note Date: 01/08/18 Principal diagnosis: Severe mitral valve regurgitation. Coronary artery disease. Preoperative paroxysmal atrial fibrillation on outpatient Coumadin for anticoagulation. Recent hospitalization for lower GI bleed, and duodenal ulcer. History of left subclavian stenosis with stent placement 2014 with recent discovery of critical re-in-stent stenosis. Previous tobacco dependence with preoperative FEV1 60% of predicted. Hypertension. Hyperlipidemia. Depression on Lexapro. Gallbladder disease. Family history of heart disease. Preoperative nasal swab positive for MRSA. Preoperative anemia. POD #44 and Mitral valve replacement using a 25 mm Ribera bioprosthetic tissue valve. Coronary artery bypass grafting 1, a reverse greater saphenous vein graft to the obtuse marginal coronary artery. Endoscopic harvesting of the left greater saphenous vein. Modified MAZE procedure. The report wasn't back yet not back in Ligation of the left atrial appendage using a 40 mm AtriClip. Epi- aortic ultrasound. Intraoperative transesophageal echocardiogram. Intraoperative left ventricular wall tear, an unexpected but potential outcome of surgery. Acute blood loss anemia, an expected outcome given patient's preoperative anemia and intraoperative bleeding. Postoperative prolonged mechanical ventilation secondary to hemodynamic instability, an unexpected but potential outcome of surgery given the extensive nature of her postoperative course. Sternal incision dehiscence, possible outcome of surgery given the patient's obesity, nutrition status and ability. POD #29 sternal wound debridement with placement of wound VAC. POD #24 bronchoscopy and bronchoalveolar lavage of the left lower lobe and extraction of mucous plug POD #16 right rectus abdominous muscle flap closure, open sternal wound. Closure of sternal wound and muscle flap with skin graft substitute, 238 cm. Implantation of reconstructive graft for closure of abdominal wall wound, [address] Krause. Postoperative left lower lobe collapse secondary to mucous plugging, and unexpected but potential outcome of surgery. Bronchial washings positive for Rachana species. Postoperative ileus, an unexpected but potential outcome of surgery. POD #15 placement of a #8 Shiley nonfenestrated tracheostomy tube. POD #3 placement of percutaneous endoscopic gastrostomy tube. The patient is currently lying in bed with her head elevated at 45. She is in no acute distress. Patient is currently on a weaning trial on the ventilator. CPAP 5, pressure support 12, FiO2 35%. She denies any complaints of pain or shortness of breath at this time. Her PEG tube remains in place with vital high -protein 1.0 kenrick. infusing at 57 mL per hour which is her goal rate. Objective - Vital Signs Vital signs: Vital Signs Temp 97.8 F 01/08/18 08:00 Pulse 108 H 01/08/18 11:32 Resp 16 01/08/18 11:00 BP 106/58 01/04/18 08:59 Pulse Ox 98 01/08/18 11:00 Intake & Output 01/07/18 01/08/18 01/08/18 18:59 06:59 18:59 Intake Total 946 1156 435 Output Total 715 775 280 Balance 231 381 155 Weight 97.6 kg 99.2 kg 99.2 kg Intake: IV 346 506 165 Dextrose 5%-0.45% NaCl 1, 110 120 50 000 ml @ 10 mls/hr IV . Q24H [facility] Rx#:[id number] Meropenem 1 gm In Sodium 200 100 100 Chloride 0.9% 100 ml @ 200 mls/hr IVPB Q8HR [facility] Rx#:[id number] Pressure Bag 36 36 15 Vancomycin 1,500 mg In 250 Sodium Chloride 0.9% 250 ml @ 125 mls/hr IVPB Q36H [facility] Rx#:[id number] Tube Feeding 600 560 240 Other 90 30 Output: Drainage 330 75 Right Abdomen 330 75 Urine 715 445 205 Other: Voiding Method Indwelling Catheter Indwelling Catheter Indwelling Catheter ABP, PAP, CO, CI - Last Documented Arterial Blood Pressure 100/64 Pulmonary Artery Pressure 38/33 Cardiac Output 5.8 Cardiac Index 2.9 - Constitutional General appearance: Present: cooperative, no acute distress, obese - EENT ENT: Present: hearing grossly normal - Neck Details: Neck is supple, no JVD, no lymphadenopathy. #8 Shiley tracheostomy present and midline. - Respiratory Details: Lung sounds essentially clear throughout, diminished bilateral bases. Respirations are symmetrical and nonlabored with mechanical ventilator support. Oxygen saturations are 98% with mechanical ventilator support. Current ventilator settings are as follows: CPAP 5, pressure support 12, FiO2 35%. #8 Shiley trach present and intact to mechanical ventilator support. - Cardiovascular Details: Regular rhythm and tachycardic rate. S1 and S2 present, negative for S3, gallop or murmur. Open chest wound with VAC dressing in place. Bedside telemetry showing atrial flutter heart rate 108. Vance wraps from knees to thigh and sequential compression devices in place to her bilateral lower extremities. +1 peripheral edema to her bilateral upper and lower extremities. Right brachial arterial line and left brachial line in place and functioning - Gastrointestinal Gastrointestinal Comment(s): Abdomen is soft, nontender and nondistended. Obese. Active bowel sounds to all 4 abdominal quadrants. Left upper quadrant PEG tube in place with tube feeding infusing per orders. Passing flatus. Bowel movement yesterday 2017. - Genitourinary Genitourinary Comment(s): Mason catheter for accurate I&O. Adequate urine output. Clear calvin urine. 315 mL output in the last 8 hours. - Integumentary Integumentary Comment(s): Skin is warm and dry. Midline open chest wound with VAC dressing in place, changed yesterday 01/07/2018. Right abdominal incision clean dry and approximated. Irving intact. HENRI drain in place to her right lower quadrant abdomen with copious thin straw-colored drainage. 255 mL output of the HENRI in the last 8 hours. Unstageable wound to her occipital area on her head clean and dry. No drainage present. - Neurologic Neurologic: Present: CNII-XII intact - Musculoskeletal Musculoskeletal: Present: generalized weakness, strength equal bilaterally - Psychiatric Psychiatric: Present: A&O x's 3, appropriate affect, intact judgment & insight - Allied health notes Allied health notes reviewed: nursing - Labs CBC & Chem 7: 01/08/18 04:30 01/08/18 04:30 Labs: Abnormal Lab Results - Last 24 Hours (Table) 01/07/18 01/08/18 01/08/18 Range/Units 18:39 04:30 04:30 WBC (3.8-10.6) k/uL RBC (3.80-5.40) m/uL Hgb (11.4-16.0) gm/dL Hct (34.0-46.0) % RDW (11.5-15.5) % Neutrophils # (1.3-7.7) k/uL Lymphocytes # (1.0-4.8) k/uL PT 15.0 H (9.0-12.0) sec INR 1.6 H (<1.2) ABG pH (7.35-7.45) ABG pO2 (83-108) mmHg ABG HCO3 (21-25) mmol/L ABG Total CO2 (19-24) mmol/L ABG O2 Saturation (94-97) % BUN 37 H (7-17) mg/dL Glucose 112 H (74-99) mg/dL POC Glucose (mg/dL) 108 H (75-99) mg/dL 01/08/18 01/08/18 01/08/18 Range/Units 04:30 07:35 11:51 WBC 11.3 H (3.8-10.6) k/uL RBC 2.89 L (3.80-5.40) m/uL Hgb 7.9 L (11.4-16.0) gm/dL Hct 25.1 L (34.0-46.0) % RDW 20.8 H (11.5-15.5) % Neutrophils # 9.8 H (1.3-7.7) k/uL Lymphocytes # 0.5 L (1.0-4.8) k/uL PT (9.0-12.0) sec INR (<1.2) ABG pH 7.46 H (7.35-7.45) ABG pO2 116 H (83-108) mmHg ABG HCO3 29 H (21-25) mmol/L ABG Total CO2 31 H (19-24) mmol/L ABG O2 Saturation 99.4 H (94-97) % BUN (7-17) mg/dL Glucose (74-99) mg/dL POC Glucose (mg/dL) 109 H (75-99) mg/dL - Imaging and Cardiology Chest x-ray: report reviewed, image reviewed Assessment and Plan (1) Acute blood loss as cause of postoperative anemia Current Visit: Yes Status: Acute Code(s): D62 - ACUTE POSTHEMORRHAGIC ANEMIA SNOMED Code(s): 33873254904310618 (2) CAD (coronary artery disease) Current Visit: Yes Status: Chronic Code(s): I25.10 - ATHSCL HEART DISEASE OF [place] CORONARY ARTERY W/O ANG PCTRS SNOMED Code(s): 76854669 (3) Family history of coronary artery disease Current Visit: Yes Status: Chronic Code(s): Z82.49 - FAMILY HX OF ISCHEM HEART DIS AND OTH DIS OF THE CIRC SYS SNOMED Code(s): 494141027 (4) Hyperlipidemia Current Visit: Yes Status: Chronic Code(s): E78.5 - HYPERLIPIDEMIA, UNSPECIFIED SNOMED Code(s): 91200053 (5) Hypertension Current Visit: Yes Status: Chronic Code(s): I10 - ESSENTIAL (PRIMARY) HYPERTENSION SNOMED Code(s): 45286976 (6) Severe mitral regurgitation Current Visit: Yes Status: Chronic Code(s): I34.0 - NONRHEUMATIC MITRAL ( VALVE) INSUFFICIENCY SNOMED Code(s): 51413093 (7) Stenosis of left subclavian artery Current Visit: Yes Status: Chronic Code(s): I77.1 - STRICTURE OF ARTERY SNOMED Code(s): 72072024982817652 (8) PAD (peripheral artery disease) Current Visit: No Status: Acute Code(s): I73.9 - PERIPHERAL VASCULAR DISEASE , UNSPECIFIED SNOMED Code(s): 239775734 (9) History of GI bleed Current Visit: No Status: Resolved Code(s): Z87.19 - PERSONAL HISTORY OF OTHER DISEASES OF THE DIGESTIVE SYSTEM SNOMED Code(s): 426379373 (10) Paroxysmal atrial fibrillation Current Visit: No Status: Resolved Code(s): I48.0 - PAROXYSMAL ATRIAL FIBRILLATION SNOMED Code(s): 143184425 (11) Elevated aspartate aminotransferase level Current Visit: Yes Status: Acute Code(s): R74.0 - NONSPEC ELEV OF LEVELS OF TRANSAMNS & LACTIC ACID DEHYDRGNSE SNOMED Code(s): 739804270 (12) Ileus, postoperative Current Visit: Yes Status: Acute Code(s): K91.89 - OTH POSTPROCEDURAL COMPLICATIONS AND DISORDERS OF DGSTV SYS; K56.7 - ILEUS, UNSPECIFIED SNOMED Code(s): 355271295 Plan: 1. Continue low dose aspirin, statin, subcu heparin, beta krunal. 2. Continue amiodarone for atrial fibrillation/atrial flutter prophylaxis. No further IV amiodarone. 3. Continue Cardizem 60 mg per PEG tube every 8 hours for rate control. 4. Ventilator management per pulmonology. Wean as tolerated. 5. Coumadin 5 mg per PEG tube today. Will dose based on daily PT/INR. Once therapeutic, Dr. Crawley will cardiovert patient. 6. Continue meropenem, Vanco management per Dr. Olivera until 01/21/2018. 7. Will monitor labs, chest x-rays. 8. Bronchodilators per pulmonology. 9. Goal range for INR is 2.2-2.5. 10. GI/DVT prophylaxis. 11. Increase activity. PT/OT/cardiac rehab following. 12. Keep abdominal drain until output is less then 30 mL in [address] Krause. 13. Keep Mason for strict accurate intake and output. Change out every 7 days. 14. Wound VAC to be changed on Wednesday, Wednesday, and Wednesday by nurse practitioner. Changed yesterday 01/07/2018. 15. Local wound care to back of head and lower back. Silvadene for left upper thigh skin tear. 16. More recommendations as patient progresses. Anticipate discharge to [facility] early next week. Time with Patient: Greater than 30
--- NOTE | 2018-01-08 12:35 | P.PN ---
Subjective Progress Note Date: 01/08/18 Principal diagnosis: Status post open heart This is a pleasant 67-year-old female patient who sees Dr. Crawley as an outpatient who underwent an open heart surgery where she had CABG 1 associated with mitral valve replacement and maze procedure, with a postoperative course was complex and complicated by respiratory failure, chest incision dehiscence, where the patient did have to go to the OR again and have another surgery. Currently the patient is in chronic respiratory failure and she does have a tracheostomy hemodynamically she continues to have atrial flutter with heart rate around 108 beats per minute.The hemoglobin continues to be around 8. The patient was given Coumadin today. We'll follow-up on the INR tomorrow. The plan is to proceed with a cardioversion if she continues to be tachycardic. If the heart rate improved and becomes less than 100 there is no need to do the cardioversion. Objective - Vital Signs Vital signs: Vital Signs Temp 97.8 F 01/08/18 08:00 Pulse 109 H 01/08/18 12:00 Resp 38 H 01/08/18 12:00 BP 106/58 01/04/18 08:59 Pulse Ox 98 01/08/18 12:00 Intake & Output 01/07/18 01/08/18 01/08/18 18:59 06:59 18:59 Intake Total 946 1156 475 Output Total 715 775 280 Balance 231 381 195 Weight 97.6 kg 99.2 kg 99.2 kg Intake: IV 346 506 165 Dextrose 5%-0.45% NaCl 1, 110 120 50 000 ml @ 10 mls/hr IV . Q24H [facility] Rx#:[id number] Meropenem 1 gm In Sodium 200 100 100 Chloride 0.9% 100 ml @ 200 mls/hr IVPB Q8HR [facility] Rx#:[id number] Pressure Bag 36 36 15 Vancomycin 1,500 mg In 250 Sodium Chloride 0.9% 250 ml @ 125 mls/hr IVPB Q36H [facility] Rx#:[id number] Tube Feeding 600 560 280 Other 90 30 Output: Drainage 330 75 Right Abdomen 330 75 Urine 715 445 205 Other: Voiding Method Indwelling Catheter Indwelling Catheter Indwelling Catheter ABP, PAP, CO, CI - Last Documented Arterial Blood Pressure 105/65 Pulmonary Artery Pressure 38/33 Cardiac Output 5.8 Cardiac Index 2.9 - Constitutional General appearance: Present: no acute distress - Labs CBC & Chem 7: 01/08/18 04:30 01/08/18 04:30 Labs: Abnormal Lab Results - Last 24 Hours (Table) 01/07/18 01/08/18 01/08/18 Range/Units 18:39 04:30 04:30 WBC (3.8-10.6) k/uL RBC (3.80-5.40) m/uL Hgb (11.4-16.0) gm/dL Hct (34.0-46.0) % RDW (11.5-15.5) % Neutrophils # (1.3-7.7) k/uL Lymphocytes # (1.0-4.8) k/uL PT 15.0 H (9.0-12.0) sec INR 1.6 H (<1.2) ABG pH (7.35-7.45) ABG pO2 (83-108) mmHg ABG HCO3 (21-25) mmol/L ABG Total CO2 (19-24) mmol/L ABG O2 Saturation (94-97) % BUN 37 H (7-17) mg/dL Glucose 112 H (74-99) mg/dL POC Glucose (mg/dL) 108 H (75-99) mg/dL 01/08/18 01/08/18 01/08/18 Range/Units 04:30 07:35 11:51 WBC 11.3 H (3.8-10.6) k/uL RBC 2.89 L (3.80-5.40) m/uL Hgb 7.9 L (11.4-16.0) gm/dL Hct 25.1 L (34.0-46.0) % RDW 20.8 H (11.5-15.5) % Neutrophils # 9.8 H (1.3-7.7) k/uL Lymphocytes # 0.5 L (1.0-4.8) k/uL PT (9.0-12.0) sec INR (<1.2) ABG pH 7.46 H (7.35-7.45) ABG pO2 116 H (83-108) mmHg ABG HCO3 29 H (21-25) mmol/L ABG Total CO2 31 H (19-24) mmol/L ABG O2 Saturation 99.4 H (94-97) % BUN (7-17) mg/dL Glucose (74-99) mg/dL POC Glucose (mg/dL) 109 H (75-99) mg/dL Assessment and Plan Assessment: Assessment #1 respiratory failure #2 status post open heart and status post CABG and mitral valve replacement #3 persistent atrial flutter #4 congestive heart failure #5 sternal wound infection #6 peripheral vascular disease and known left subclavian stenosis #7 multiple comorbid conditions Plan #1 continue anticoagulation and continue monitor the INR #2 follow-up with the patient.
--- NOTE | 2018-01-08 15:40 | P.PN ---
Subjective Progress Note Date: 01/08/18 Principal diagnosis: Status post CABG and mitral valve replacement postoperative day # 44 Is a 67-year-old female patient who is status post 1 vessel bypass surgery and mitral valve replacement; patient also had a surgical flap of sternum secondary to wound dehiscence and infection; patient also underwent tracheostomy and remains on mechanical ventilation; patient has been on pressure support and CPAP as leaning trial and has been tolerating it well; planning to continue with weaning trials daily 01/08/2018 Patient remains on mechanical ventilation and ICU; pulmonary service is following ventilatory management;Cardiology is following and managing Coumadin therapy; will continue to monitor PT/INR; cardiology recommending cardioversion if she remains tachycardic Objective - Vital Signs Vital signs: Vital Signs Temp 97.8 F 01/08/18 08:00 Pulse 111 H 01/08/18 15:18 Resp 19 01/08/18 15:00 BP 106/58 01/04/18 08:59 Pulse Ox 99 01/08/18 15:00 Intake & Output 01/07/18 01/08/18 01/08/18 18:59 06:59 18:59 Intake Total 946 1156 866 Output Total 715 775 590 Balance 231 381 276 Weight 97.6 kg 99.2 kg 99.2 kg Intake: IV 346 506 277 Dextrose 5%-0.45% NaCl 1, 110 120 50 000 ml @ 10 mls/hr IV . Q24H [facility] Rx#:[id number] Meropenem 1 gm In Sodium 200 100 200 Chloride 0.9% 100 ml @ 200 mls/hr IVPB Q8HR [facility]E Rx#:[id number] Pressure Bag 36 36 27 Vancomycin 1,500 mg In 250 Sodium Chloride 0.9% 250 ml @ 125 mls/hr IVPB Q36H [facility] Rx#:[id number] Tube Feeding 600 560 559 Other 90 30 Output: Drainage 330 205 Right Abdomen 330 205 Urine 715 445 385 Other: Voiding Method Indwelling Catheter Indwelling Catheter Indwelling Catheter # Voids 1 ABP, PAP, CO, CI - Last Documented Arterial Blood Pressure 92/86 Pulmonary Artery Pressure 38/33 Cardiac Output 5.8 Cardiac Index 2.9 - Exam General appearance: Remains intubated no acute distress, obese, - Neck Details: Neck is supple, no JVD, no lymphadenopathy. Tracheostomy tube is midline and intact, sutures in place. - Respiratory Details: Lungs sounds essentially diminished at the left base, Respirations are symmetrical and nonlabored with mechanical ventilator support. - Cardiovascular Details: Pain is tachycardic at regular rate and rhythm seems to be regular. This may be a a flutter with 2 to one block. S1 and S2 present, negative for S3 , gallop or murmur. - Gastrointestinal Gastrointestinal Comment(s): Abdomen is soft, nontender, no megaly, no rebound, PEG tube is intact. - Genitourinary Genitourinary Comment(s): Mason catheter for accurate I&O. Draining clear yellow urine. - Integumentary Integumentary Comment(s): Skin is warm and dry. No clubbing or cyanosis. Both lower extremities are wrapped with Vance bandage. - Neurologic Neurologic Comment(s): Alert and following verbal commands. No gross focal neurologic deficit noted. - Musculoskeletal Musculoskeletal: Present: generalized weakness, strength equal bilaterally - Labs CBC & Chem 7: 01/08/18 04:30 01/08/18 04:30 Labs: Abnormal Lab Results - Last 24 Hours (Table) 01/07/18 01/08/18 01/08/18 Range/Units 18:39 04:30 04:30 WBC (3.8-10.6) k/uL RBC (3.80-5.40) m/uL Hgb (11.4-16.0) gm/dL Hct (34.0-46.0) % RDW (11.5-15.5) % Neutrophils # (1.3-7.7) k/uL Lymphocytes # (1.0-4.8) k/uL PT 15.0 H (9.0-12.0) sec INR 1.6 H (<1.2) ABG pH (7.35-7.45) ABG pO2 (83-108) mmHg ABG HCO3 (21-25) mmol/L ABG Total CO2 (19-24) mmol/L ABG O2 Saturation (94-97) % BUN 37 H (7-17) mg/dL Glucose 112 H (74-99) mg/dL POC Glucose (mg/dL) 108 H (75-99) mg/dL 01/08/18 01/08/18 01/08/18 Range/Units 04:30 07:35 11:51 WBC 11.3 H (3.8-10.6) k/uL RBC 2.89 L (3.80-5.40) m/uL Hgb 7.9 L (11.4-16.0) gm/dL Hct 25.1 L (34.0-46.0) % RDW 20.8 H (11.5-15.5) % Neutrophils # 9.8 H (1.3-7.7) k/uL Lymphocytes # 0.5 L (1.0-4.8) k/uL PT (9.0-12.0) sec INR (<1.2) ABG pH 7.46 H (7.35-7.45) ABG pO2 116 H (83-108) mmHg ABG HCO3 29 H (21-25) mmol/L ABG Total CO2 31 H (19-24) mmol/L ABG O2 Saturation 99.4 H (94-97) % BUN (7-17) mg/dL Glucose (74-99) mg/dL POC Glucose (mg/dL) 109 H (75-99) mg/dL Assessment and Plan Assessment: Assessment #1 respiratory failure #2 status post open heart and status post CABG and mitral valve replacement #3 persistent atrial flutter #4 congestive heart failure #5 sternal wound infection #6 peripheral vascular disease and known left subclavian stenosis #7 multiple comorbid conditions Plan of care as stated above;continue with anticoagulation therapy and monitor PT/INR; plan for cardioversion if remains tachycardic; pulmonary is managing rent and plan to continue weaning trials.
[2018-01-08] MEDS ORDERED: BISACODYL 10 MG SUPP RECTAL STA (16:28)
[2018-01-08] MEDS ORDERED: WARFARIN 5 MG TAB PO ONE (18:00)
[2018-01-08 18:06] LABS: Glucose,Whole Blood 111 mg/dL (75-99)
[2018-01-08] MEDS: SENNOSIDES-DOCUSATE SODIUM 1 EACH TAB PO SCH (20:41)
[2018-01-08] MEDS: ESCITALOPRAM 10 MG TAB PO SCH (20:42)
[2018-01-08] MEDS: SILVER sulfADIAZINE Cream 400 GM 1 APPLIC APPLIC TOPICAL SCH (21:10)
--- NOTE | 2018-01-08 22:58 | P.PN ---
Subjective Progress Note Date: 01/08/18 Principal diagnosis: Sternal wound dehiscence Pleasant 67-year-old female who has an extensive past medical history who is now 14 days postoperative from her open heart procedure it which point in time a mitral valve placement occurred, reverse saphenous vein coronary artery bypass grafting 1 to obtuse marginal, Maze procedure and ligation of the left atrial appendage all occurred interoperatively left ventricular wall tear occurred and was repaired. The patient has a known history of multiple medical troubles before her surgery that included her obesity, COPD and marked deconditioning. Patient has had difficulties recently that included urinary tract infection with E. coli and Serratia and has been treated with intravenous antibiotic therapy with Zosyn. She was having some improvement but then developed dehiscence of her sternal wound and there are plans for surgical debridement tomorrow wound culture showing gram-negative bacilli and with at the infectious diseases consultation was requested. The patient continues to have significant respiratory difficulties and is currently on BiPAP for support. Postoperatively the patient was hemodynamically unstable which made even turning of the patient not possible which has resulted in unavoidable areas of skin breakdown, that are now treatable given her improvement 12/10/2017 reveals the patient to be postoperative from the sternal wound debridement. The surgical note as well as discussion with the surgical team reveals evidence of poor bone quality and all of the sternal wires had pulled through her bony areas. Negative pressure therapy is in place. She is tolerating this well. Plastic surgery consult has been requested for reconstruction of her chest in the near future. Gram-negative bacilli growing from the sternal wound. She is quite comfortable after procedure, chest tube was placed of the left cavity and this is improved some left lung function and she seems less short of breath. The daughter is present and her questions were answered. 12/11/2017 reveals the patient to have had some respiratory distress today and is back on BiPAP at this time. She relates that her pain is under much significant control. Been no other new acute complaints are being made. 12/13/2017 the patient remains in the ICU she is currently on BiPAP but relates that she is quite comfortable. We will work with the nursing staff to change her VAC dressing at this time. await the plastic surgery timeline. 12/15/2017 reveals the patient to remain in intensive care unit, her status has worsened and that she developed flash pulmonary edema and respiratory failure requiring reintubation sedation mechanical ventilation. She underwent bronchoscopy today for removal of mucous plugs and to help with the collapsed left lower lobe. The patient has require some vasopressor support but is more stable this afternoon than earlier. She is sedated and comfortable. She has significant decline of hemoglobin is 7.6. Anticoagulation was held. Is being closely monitored by surgery and they await the plastic surgery intervention. 12/16/2017 cases briefly discussed with the cardiothoracic nurse practitioner in that the wound VAC is being changed today. It is unchanged with no difficulties. No further bleeding is noted. Plastic surgery evaluation apparently will occur tomorrow so the surgical plan can be devised. 12/20/2017 since last visit current thoracic has again change the wound VAC without difficulties. She tolerated it well. She remains on the ventilator at this point in time, does not appear to have any plans for weaning because she will have her plastic closure over open chest tomorrow. She's been hemodynamically stable with intermittent atrial flutter. No significant changes of oxygen requirements, drainage from the wound VAC is minimal as is drainage from her chest tube. 12/21/2017 patient is status post the partial plastic closure of her sternal wound. Complete cardiac coverage occurred but only partial closure was possible. Oxygen requirements are improving postoperative and is being closely watched for any further blood loss anemia. 12/23/2017 reveals the patient to be extubated on BiPAP. She is comfortable with her pain level is about a 2. Shortness of breath is not severe. She is unable to eat and a Dobbhoff will be placed a bit later today to help her with nutritional status to help her recovery. The current situation is discussed with the cardiothoracic surgeon team 12/24/2017 reveals evidence of the changes status in that she has now had a tracheostomy applied due to her chronic respiratory failure. Cardiothoracic surgery has changed the dressing today. Patient is comfortable after her surgery. Denies new acute discomforts. 12/25/2017 reveals that the patient is doing well with her tracheostomy. She is on 35% FiO2 with excellent saturations. The patient relates that she is comfortable her pain level is no more than a 4. She is receiving feedings via the Dobbhoff is tolerating that well but is having a few soft stools without swapnil diarrhea. 12/27/2017 patient remained stable after tracheostomy. With pain level is no more than a 2 at this point in time. Feedings via the Dobbhoff are going well. The wound VAC dressing was changed today without difficulties. Leukocytosis is improving. No hypotension. 12/28/2017. Overall the patient has been stable and that her pulmonary status without acute change. Doing well with the tracheostomy. Patient however developed significant abdominal distention with a tympanic abdomen. Abdominal x -ray revealed evidence of ileus. She's been seen by general surgery and they will determine if she needs an NG tube based on x-rays. She apparently is more comfortable this evening that she was earlier in the day. Nursing staff relates no fevers. 12/29/2017 patient is stable. Not having new acute difficulties. Is noted did have a pressure ulceration to the posterior aspect of the scalp that is being treated with a fall offloading cushion. Patient is actually quite comfortable today. Her ileus is starting to improve. Surgery he has no plans for surgical intervention into the abdomen. Is tolerating TPN. 12/30/2017 the patient is stable. She is doing well with her physical therapy and her antibiotic therapy for the sternal wound dehiscence. Ileus is improving and tolerating her TPN well. 12/31/2017 patient has been seen by the cardiothoracic team and wound VAC was changed without difficulty. She is having significant ongoing atrial flutter and has been seen by cardiology and they await medication effect for spontaneous transition back to a normal sinus mechanism that she has done the past. Patient is mildly short of breath but does well on the current ventilator settings. Her pain level is no more than a 2 and she is doing well with her physical therapy. NG tube was placed and this has given her relief of her distention and discomfort from her ileus 01/03/2018 patient is comfortable today. She has an IMV ventilation and other than some tiredness she relates she is doing well. Her pain level is 0. No difficulty with the recent dressing changes. Tolerating tube feeding at this point in time without abdominal pain. She is tolerating tube feeds well at this time. 01/04/2018 patient is comfortable doing well tolerated CPAP for 8 hours a day. We'll have her PEG tube placed tomorrow which will then allow the next set of changes hopefully with anticoagulation, cardioversion and then placement to vent facility. 01/05/2018 patient is had her PEG tube placed today. Other than some pain at that site she's doing relatively well. Spirits are good and she looks forward to transitioning to a new facility for chronic weaning and eventual removal of her trach. His related that today there was a moment of standing with multiple person assist. 01/06/2018 patient is still having some postoperative pain from the PEG tube that was placed. Other than That she is doing relatively well. Anticoagulation is started. When she is therapeutic cardioversion will occur and then hopefully transition to the chronic vent facility for long-term weaning. 01/07/2018 patient is doing better today. Her postoperative pain continues to improve and is tolerating tube feeds via the PEG tube well with increasing amounts of nutrition per hour nearly attending her goal. As noted she is comfortable. Did well with physical therapy today. Has been seen by cardiology. With her improved heart rate may not require cardioversion. 01/08/2018 patient continues her improvement however continues to have some tachycardia. Cardiology is following and if her heart rate remains over 100 she 'll be cardioverted early next week. She will then continue the process of transitioning to select specialty for her long-term weaning. And her physical therapy to get her independent. She's feeling well today. Pain level is no more than a 2 from the recent PEG tube site. The legs are feeling better without significant open lesions. Objective - Vital Signs Vital signs: Vital Signs Temp 97.8 F 01/08/18 08:00 Pulse 111 H 01/08/18 20:34 Resp 23 01/08/18 19:00 BP 106/58 01/04/18 08:59 Pulse Ox 99 01/08/18 20:00 Intake & Output 01/08/18 01/08/18 01/09/18 06:59 18:59 06:59 Intake Total 1156 1203 57 Output Total 775 950 40 Balance 381 253 17 Weight 99.2 kg 99.2 kg Intake: IV 506 386 Dextrose 5%-0.45% NaCl 1, 120 50 000 ml @ 10 mls/hr IV . Q24H [facility] Rx#:[id number] Meropenem 1 gm In Sodium 100 300 Chloride 0.9% 100 ml @ 200 mls/hr IVPB Q8HR [facility] Rx#:[id number] Pressure Bag 36 36 Vancomycin 1,500 mg In 250 Sodium Chloride 0.9% 250 ml @ 125 mls/hr IVPB Q36H [facility] Rx#:[id number] Tube Feeding 560 787 57 Other 90 30 Output: Drainage 330 425 40 Right Abdomen 330 425 40 Urine 445 525 Other: Voiding Method Indwelling Catheter Indwelling Catheter Indwelling Catheter # Voids 1 ABP, PAP, CO, CI - Last Documented Arterial Blood Pressure 115/63 Pulmonary Artery Pressure 38/33 Cardiac Output 5.8 Cardiac Index 2.9 - Exam Obese 67-year-old woman who is now extubated on BiPAP HEENT: Anicteric conjunctiva are pink and moist nasal mucosa grossly intact without significant lesions, there is no thrush. Oral mucosa is dry but no swapnil lesions could be seen, NG tube is now placed. Neck: The neck is supple without significant lymphadenopathy or thyromegaly. Tracheostomy intact without bleeding there is evidence of the posterior scalp lesion please refer to the nursing photography. Lungs: Symmetrical air entry is noted. There is scattered crackles but no swapnil bronchial sounds Heart: Irregular with an audible S1 and S2 soft S4 no audible murmur no click or rub Chest: The patient's mid sternotomy incision is now covered with a postoperative dressing from the plastic closure which is reported to be a partial flap closure Abdomen: Obese, Positive bowel sounds soft and nontender without palpable masses or organomegaly. There was no guarding or rebound. Distention is slightly improved with initiation of the nasogastric tube and suction. Symptomatically she feels better Extremities: The upper and lower extremities have evidence of edema harvest site is intact there is some bruising that is noted especially on the left groin area. IV sites are intact. Skin: With the nursing staff the buttocks pressure ulcerations are evaluated which are showing improvement. The ulceration on the skin fold above her buttocks is also evaluated and appears to be improving. Also improvement of the ulceration to the right wrist area. Skin however is now having some blistering due to her hypoalbuminemia and excessive volume. Sternal wound dressing is dry and intact. Neuro: Comfortable at this time pain level 2 after the PEG tube placement, no acute changes neurologically - Labs CBC & Chem 7: 01/08/18 04:30 01/08/18 04:30 Labs: Abnormal Lab Results - Last 24 Hours (Table) 01/08/18 01/08/18 01/08/18 Range/Units 04:30 04:30 04:30 WBC 11.3 H (3.8-10.6) k/uL RBC 2.89 L (3.80-5.40) m/uL Hgb 7.9 L (11.4-16.0) gm/dL Hct 25.1 L (34.0-46.0) % RDW 20.8 H (11.5-15.5) % Neutrophils # 9.8 H (1.3-7.7) k/uL Lymphocytes # 0.5 L (1.0-4.8) k/uL PT 15.0 H (9.0-12.0) sec INR 1.6 H (<1.2) ABG pH (7.35-7.45) ABG pO2 (83-108) mmHg ABG HCO3 (21-25) mmol/L ABG Total CO2 (19-24) mmol/L ABG O2 Saturation (94-97) % BUN 37 H (7-17) mg/dL Glucose 112 H (74-99) mg/dL POC Glucose (mg/dL) (75-99) mg/dL 01/08/18 01/08/18 01/08/18 Range/Units 07:35 11:51 18:04 WBC (3.8-10.6) k/uL RBC (3.80-5.40) m/uL Hgb (11.4-16.0) gm/dL Hct (34.0-46.0) % RDW (11.5-15.5) % Neutrophils # (1.3-7.7) k/uL Lymphocytes # (1.0-4.8) k/uL PT (9.0-12.0) sec INR (<1.2) ABG pH 7.46 H (7.35-7.45) ABG pO2 116 H (83-108) mmHg ABG HCO3 29 H (21-25) mmol/L ABG Total CO2 31 H (19-24) mmol/L ABG O2 Saturation 99.4 H (94-97) % BUN (7-17) mg/dL Glucose (74-99) mg/dL POC Glucose (mg/dL) 109 H 111 H (75-99) mg/dL Laboratory Results WBC 11.3 k/uL (3.8-10.6) H 01/08/18 04:30 RBC 2.89 m/uL (3.80-5.40) L 01/08/18 04:30 Hgb 7.9 gm/dL (11.4-16.0) L 01/08/18 04:30 Hct 25.1 % (34.0-46.0) L 01/08/18 04:30 MCV 86.9 fL (80.0-100.0) 01/08/18 04:30 MCH 27.3 pg (25.0-35.0) 01/08/18 04:30 MCHC 31.4 g/dL (31.0-37.0) 01/08/18 04:30 RDW 20.8 % (11.5-15.5) H 01/08/18 04:30 Plt Count 280 k/uL (150-450) 01/08/18 04:30 Neutrophils % 87 % 01/08/18 04:30 Neutrophils % (Manual) 98 % 12/05/17 04:25 Lymphocytes % 5 % 01/08/18 04:30 Lymphocytes % (Manual) 1 % 12/05/17 04:25 Monocytes % 5 % 01/08/18 04:30 Monocytes % (Manual) 1 % 12/05/17 04:25 Eosinophils % 2 % 01/08/18 04:30 Basophils % 0 % 01/08/18 04:30 Myelocytes % 1 % 12/03/17 04:15 Neutrophils # 9.8 k/uL (1.3-7.7) H 01/08/18 04:30 Neutrophils # (Manual) 26.95 k/uL (1.3-7.7) H 12/05/17 04:25 Lymphocytes # 0.5 k/uL (1.0-4.8) L 01/08/18 04:30 Lymphocytes # (Manual) 0.28 k/uL (1.0-4.8) L 12/05/17 04:25 Monocytes # 0.6 k/uL (0-1.0) 01/08/18 04:30 Monocytes # (Manual) 0.28 k/uL (0-1.0) 12/05/17 04:25 Eosinophils # 0.2 k/uL (0-0.7) 01/08/18 04:30 Basophils # 0.0 k/uL (0-0.2) 01/08/18 04:30 Myelocytes # (Manual) 0.17 k/uL (0) H 12/03/17 04:15 Nucleated RBCs 0 /100 WBC (0-0) 12/05/17 04:25 Manual Slide Review Performed 12/05/17 04:25 Polychromasia Present 12/03/17 04:15 Hypochromasia Moderate 01/08/18 04:30 Poikilocytosis Slight 01/08/18 04:30 Anisocytosis Moderate 01/08/18 04:30 Microcytosis Slight 01/05/18 05:00 Target Cells Present 12/03/17 04:15 PT 15.0 sec (9.0-12.0) H 01/08/18 04:30 INR 1.6 (<1.2) H 01/08/18 04:30 APTT 23.9 sec (22.0-30.0) 12/21/17 04:50 Fibrinogen 334 mg/dL (200-500) 11/26/17 04:22 Sample Site a-line 01/08/18 07:35 ABG pH 7.46 (7.35-7.45) H 01/08/18 07:35 ABG pCO2 42 mmHg (35-45) 01/08/18 07:35 ABG pO2 116 mmHg (83-108) H 01/08/18 07:35 ABG HCO3 29 mmol/L (21-25) H 01/08/18 07:35 ABG Total CO2 31 mmol/L (19-24) H 01/08/18 07:35 ABG O2 Saturation 99.4 % (94-97) H 01/08/18 07:35 ABG Base Excess 5.4 mmol/L 01/08/18 07:35 ABG Hematocrit 24 % (34.0-46.0) L 11/25/17 17:37 Robbi Test Yes 01/08/18 07:35 ABG Sodium 144 mmol/L (135-146) 11/25/17 17:37 ABG Potassium 3.8 mmol/L (3.4-4.5) 11/25/17 17:37 ABG Ionized Calcium 4.0 mg/dL (4.5-5.3) L 11/25/17 17:37 ABG Glucose 139 mg/dL (75-99) H 11/25/17 17:37 ABG Lactic Acid 2.8 mmol/L (0.5-1.6) H* 11/25/17 17:37 Hemoglobin 7.8 gm/dL (11.4-16.0) L 11/25/17 17:37 FiO2 35 % 01/08/18 07:35 Sodium 138 mmol/L (137-145) 01/08/18 04:30 Potassium 3.5 mmol/L (3.5-5.1) 01/08/18 04:30 Chloride 100 mmol/L (98-107) 01/08/18 04:30 Carbon Dioxide 30 mmol/L (22-30) 01/08/18 04:30 Anion Gap 8 mmol/L 01/08/18 04:30 BUN 37 mg/dL (7-17) H 01/08/18 04:30 Creatinine 0.80 mg/dL (0.52-1.04) 01/08/18 04:30 Est GFR (MDRD) Af Amer >60 (>60 ml/min/1.73 sqM) 12/07/17 04:00 Est GFR (MDRD) Non-Af >60 (>60 ml/min/1.73 sqM) 12/07/17 04:00 Est GFR (CKD-EPI)AfAm 88 (>60 ml/min/1.73 sqM) 01/08/18 04:30 Est GFR (CKD-EPI)NonAf 77 (>60 ml/min/1.73 sqM) 01/08/18 04:30 Glucose 112 mg/dL (74-99) H 01/08/18 04:30 POC Glucose (mg/dL) 111 mg/dL (75-99) H 01/08/18 18:04 POC Glu Quality Technician ID Lenka Delgado 01/08/18 18:04 Calcium 8.7 mg/dL (8.4-10.2) 01/08/18 04:30 Ionized Calcium Bruce 4.7 mg/dL (4.5-5.3) 12/11/17 15:45 Phosphorus 3.6 mg/dL (2.5-4.5) 01/08/18 04:30 Magnesium 2.3 mg/dL (1.6-2.3) 01/08/18 04:30 Total Bilirubin 0.4 mg/dL (0.2-1.3) 12/31/17 04:30 AST 36 U/L (14-36) 12/31/17 04:30 ALT 34 U/L (9-52) 12/31/17 04:30 Alkaline Phosphatase 88 U/L (38-126) 12/31/17 04:30 Total Protein 6.2 g/dL (6.3-8.2) L 12/31/17 04:30 Albumin 3.1 g/dL (3.5-5.0) L 12/31/17 04:30 Prealbumin 7.0 mg/dL (18.0-42.0) L 12/27/17 05:10 Triglycerides 130 mg/dL (<150) 12/29/17 11:45 Cholesterol 80 mg/dL (<200) 12/29/17 11:45 LDL Cholesterol, Calc 34 mg/dL (0-99) 12/29/17 11:45 HDL Cholesterol 20 mg/dL (40-60) L 12/29/17 11:45 Arterial Blood Potassium 3.8 mmol/L (3.4-4.5) 11/25/17 17:37 Arterial Blood Glucose 139 mg/dL (75-99) H 11/25/17 17:37 Urine Color Yellow 12/04/17 10:00 Urine Appearance Cloudy (Clear) H 12/04/17 10:00 Urine pH 5.5 (5.0-8.0) 12/04/17 10:00 Ur Specific [place] 1.015 (1.001-1.035) 12/04/17 10:00 Urine Protein Trace (Negative) H 12/04/17 10:00 Urine Glucose (UA) Negative (Negative) 12/04/17 10:00 Urine Ketones Negative (Negative) 12/04/17 10:00 Urine Blood Negative (Negative) 12/04/17 10:00 Urine Nitrite Negative (Negative) 12/04/17 10:00 Urine Bilirubin Negative (Negative) 12/04/17 10:00 Urine Urobilinogen <2.0 mg/dL (<2.0) 12/04/17 10:00 Ur Leukocyte Esterase Negative (Negative) 12/04/17 10:00 Urine RBC 7 /hpf (0-5) H 12/04/17 10:00 Urine WBC 1 /hpf (0-5) 12/04/17 10:00 Ur Squamous Epith Cells 8 /hpf (0-4) H 12/04/17 10:00 Urine Bacteria Occasional /hpf (None) H 12/04/17 10:00 Urine Mucus Rare /hpf (None) H 12/04/17 10:00 Fluid Source Bronchial Wash 12/15/17 10:40 Fluid Color Colorless 12/15/17 10:40 Fluid Appearance Cloudy 12/15/17 10:40 Fluid RBC 150 /uL 12/15/17 10:40 Fluid Nucleated Cells 6900 /uL 12/15/17 10:40 Fluid Polynuclear WBCs 95 % 12/15/17 10:40 Fluid Mononuclear WBCs 5 % 12/15/17 10:40 Stl Cryptosporidium Ag Negative (Negative) 01/02/18 06:00 Stool Giardia Source Stool 01/02/18 06:00 Stl Giardia Antigen Negative (Negative) 01/02/18 06:00 Vancomycin Trough 22.9 ug/mL 01/01/18 04:45 Random Vancomycin 21.2 ug/mL 12/16/17 04:15 Heparin-Ind Plt Ab Scrn 0.231 OD (<0.4) 11/29/17 04:50 C. difficile (EIA) Intrp Negative (Negative) 01/02/18 06:00 Virus Source See Below 12/15/17 10:40 Viral Test See Below 12/15/17 10:40 Virus Analysis Interp See Below 12/15/17 10:40 Blood Type A Positive 01/05/18 08:30 Blood Type Recheck No 01/05/18 08:30 Antibody Screen NEGATIVE 01/05/18 08:30 Crossmatch See Detail 12/14/17 10:10 Transfuse Cryo [id number] 11/26/17 00:39 Transfuse Plasma 12/15/2017 12/15/17 05:51 Transfuse Platelets [id number] 11/25/17 14:55 Spec Expiration Date 01/08/2018 - 2330 01/05/18 08:30 Microbiology 01/02/18 06:00 Stool Stool Culture - Final 12/15/17 10:40 Bronchial Washings - Left Acid Fast Bacilli Smear - Final 12/15/17 10:40 Bronchial Washings - Left Acid Fast Bacilli Culture - Preliminary 12/10/17 10:45 Chest Acid Fast Bacilli Smear - Final 12/10/17 10:45 Chest Acid Fast Bacilli Culture - Preliminary 12/10/17 10:50 Chest Acid Fast Bacilli Smear - Final 12/10/17 10:50 Chest Acid Fast Bacilli Culture - Preliminary 12/10/17 10:40 Chest Fungal Culture - Preliminary 12/10/17 10:45 Chest Fungal Culture - Preliminary 12/10/17 10:50 Chest Fungal Culture - Preliminary 01/02/18 06:00 Stool Stool for WBCs - Final 12/24/17 11:30 Catheter Tip Catheter Tip Culture - Final 12/15/17 10:40 Bronchial Washings - Left Fungal Culture - Preliminary Rachana albicans 12/15/17 10:40 Bronchial Washings - Left Gram Stain - Final 12/15/17 10:40 Bronchial Washings - Left Bronchial Washings Culture - Final Rachana albicans 12/14/17 21:30 Sputum Gram Stain - Final 12/14/17 21:30 Sputum Sputum Culture - Final Rachana albicans 12/10/17 10:50 Chest Anaerobic Culture - Final 12/10/17 10:40 Chest Anaerobic Culture - Final 12/10/17 10:45 Chest Anaerobic Culture - Final 12/13/17 05:27 Urine,Catheterized Urine Culture - Final 12/10/17 10:40 Chest Gram Stain - Final 12/10/17 10:40 Chest Wound Culture - Final Serratia marcescens 12/10/17 10:45 Chest Gram Stain - Final 12/10/17 10:45 Chest Tissue Culture - Final Serratia marcescens 12/10/17 10:50 Chest Gram Stain - Final 12/10/17 10:50 Chest Tissue Culture - Final Serratia marcescens 12/07/17 15:40 Chest Gram Stain - Final 12/07/17 15:40 Chest Wound Culture - Final Serratia marcescens 12/04/17 10:00 Urine,Voided Urine Culture - Final Escherichia coli Serratia marcescens 11/26/17 04:00 Sputum Gram Stain - Final 11/26/17 04:00 Sputum Sputum Culture - Final Assessment and Plan (1) Severe mitral regurgitation Current Visit: Yes Status: Chronic Code(s): I34.0 - NONRHEUMATIC MITRAL ( VALVE) INSUFFICIENCY SNOMED Code(s): 19525197 (2) CAD (coronary artery disease) Current Visit: Yes Status: Chronic Code(s): I25.10 - ATHSCL HEART DISEASE OF [place] CORONARY ARTERY W/O ANG PCTRS SNOMED Code(s): 60780626 (3) Acute blood loss as cause of postoperative anemia Current Visit: Yes Status: Acute Code(s): D62 - ACUTE POSTHEMORRHAGIC ANEMIA SNOMED Code(s): 18582907129938960 (4) Pressure ulcer of contiguous region involving back and buttock, stage 3 Current Visit: Yes Status: Acute Code(s): L89.43 - PRESSR ULCER OF CONTIG SITE OF BACK, BUTTOCK AND HIP, STG 3 SNOMED Code(s): 772510991 (5) Sternal wound dehiscence Narrative/Plan: 67-year-old woman presents to Hospital for treatment of her severe mitral irritation. Underwent mitral valve replacement, coronary artery bypass grafting 1, Maze procedure and clipping of the left atrial appendage with a complication of the left ventricular wall tear. The patient has had a very protracted recovery she is now day 14 post operative and is still having difficulty with her respiratory status requiring BiPAP. The patient's nutritional status and underlying comorbidities have complicated her care. She now has evidence of the sternal dehiscence with evidence of gram negatives bacilli being found at the site. There is evidence of urinary tract infection with E. coli and Serratia. This Serratia species is somewhat resistant and consequently we'll alter the current antimicrobial therapy from Zosyn to meropenem to ensure coverage for other potential pathogens that are resistant that could be in the sternal wound while we await cultures. The patient will be going to the operating room tomorrow for debridement and wound VAC placement. The cultures were further direct the overall course of antibiotics. Urinary infection appears to be doing somewhat better. The patient fortunately is comfortable and doing well with her BiPAP. 12/10/2017 the patient is status post surgery and actually is feeling a bit better this afternoon than yesterday. Her pain is quite well controlled. She is not on BiPAP. She is less short of breath. Wound culture has verified the Serratia marcescens to the sternal wound. We'll constantly continue the current course of meropenem due to some of the resistance patterns or seeing with the species. Continue local care at this point time with the negative pressure system to the sternal wound. The plastic surgery consult is being requested for reconstruction of her chest. She will require a course of intravenous antibiotic therapy given her complex infection. Dual-lumen PICC is already in place. We'll repeat the discharge planners as to her place of rehab. 12/11/2017 the patient is metabolically stable but is having difficulties with her respiratory status and is now back on BiPAP which has been intermittent over the last multiple days. Negative pressure therapy remains intact and the sternum and we await the plastic surgery intervention. 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 Continue supportive care, and nutritional supplements as possible to improve for tissue healing. 12/13/2017 patient is on BiPAP. She is comfortable at this time. Receiving her intravenous antibiotic therapy without difficulties. At this time the surgeon present in a sterile fashion the wound VAC is removed. Surgeon evaluates and then the wound VAC is reapplied with 2 of the white foam, periwound protected with DuoDERM no difficulty with the seal. Merrem continues. 12/15/2017 the patient has had marked worsening of her status in that she had respiratory failure requiring reintubation and mechanical ventilation. She is now sedated and comfortable but has had some hemodynamic instability and is now back on vasopressor therapy. Bronchoscopy is performed and suctioning of mucous plugs as allowed some improvement of her pulmonary status. Further cultures are process. Meropenem and vancomycin continue for the isolated S[place]ia and concerns for resistant gram-positive infection at this time. Plastic surgery evaluation is in process and surgical plans for later this week appear to be possible. 12/16/2017 reveals the patient to be stable from the last 24 hours. Her ventilatory settings are similar. She's currently not on vasopressor therapy. She is tolerating current antibiotic therapy well with no difficulties with rash and diarrhea or marked changes of her hematological parameters. She's had no further active bleeding. Sputum culture with gram-positive cocci seen vancomycin was added we await final cultures. 12/20/2017 patient remained stable and is being prepped for her sternal reconstruction surgery tomorrow. She's not on vasopressor therapy, and vent settings are stable. Most recent bronchoscopy showed mucous plug no evidence of any new pathogens except yeast was found likely from upper airways. Fluconazole was added given her significant risks, although fungal pneumonia is not occurring at this time. At the time of reconstruction repeat samplings from her sternum will be helpful to help direct the course of antibiotic therapy , pathology and culture of the sternum will be helpful. Remains on the meropenem and vancomycin at this time. 12/21/2017 the patient is status post the sternal reconstruction with muscle flap, reportedly is only a partial closure at this time. However visit. The cardiac structure is completely covered. The patient is showing improvement in her cardiopulmonary status today. No active bleeding is noted. She is tolerating current antibiotic therapy well with meropenem and vancomycin. Await final culture and pathological data to help derive the course of her antibiotic therapy 12/23/2017 reveals the patient to be improved, she has been extubated and tolerating BiPAP well. The case is discussed with the cardiothoracic surgeon. The muscle flap was then performed and there is a biological skin substitute over the flap. She related that the plastic surgeon would not allow a wound VAC to be placed for approximately 10 days after the surgery. We will monitor. Continue current antibiotic therapy planning a multiweek course of therapy for the complex sternal wound infection. 12/24/2017 reveals the patient to have further improvement that she has had a tracheostomy placed. This will hopefully help her long-term weaning situation and also help with the nutritional difficulties. As she has improvement of her status hopefully the significant difference with her skin from the edema low albumin and blistering will improve. Receiving extensive antibiotic therapy for the sternal wound dehiscence will continue with the meropenem and vancomycin at this time. 12/25/2017 reveals the patient to have some improvement in the last 24 hours. She's doing well with a tracheostomy and is on 35% FiO2. Pain control is well at this point in time. Her spitting edema seems to be slightly improving and does not have as many blisters that she was having. Still does have anasarca but appears to be a bit less tight than she was a day ago. Her wounds are improving with the local wound care. Antibiotic therapy continues with meropenem and vancomycin for the sternal wound dehiscence and infection. Dressing changes have been per the cardiothoracic team to the chest wound. The abdominal wound is healing well and is having some serous drainage related to the anasarca. Hopefully with improving edema status and improve nutritional status anasarca will resolve. 12/27/2017 reveals a patient with further improvement. Her anasarca is improving and she is having less edema. She is tolerating the intravenous antibiotic therapy of meropenem and vancomycin for her sternal wound dehiscence. Leukocytosis in general is improved. No other new infections are noted. She had a wound VAC dressing change today of the sternal area. 12/28/2017 reveals the patient to have developed some bowel distention and concerns to ileus. She's been seen by general surgery. He will determine if she needs to have her Dobbhoff removed and an NG tube place. The patient has significant hypo albuminemia and is in need of the extensive supplementation, consequently TPN was requested per the surgeon. She will remain on her antibiotic therapy planning 6 weeks for the complex sternal dehiscence. Cardiothoracic surgery have changed her VAC dressing to her sternal wound. 12/29/2017 patient continues to tolerate antibiotic therapy well. Orders have been clarified for the 6 weeks of meropenem and vancomycin. cardiothoracic is in charge of the dressing changes to the complex sternal dehiscence wound. Tolerating TPN well with overall goal to improve her very low protein which will help her significant and extensive tissue edema. 12/30/2017 patient continues to have some improvement, if she is improving [facility].she is doing better from her ileus and TPN is being well-tolerated.will be on intravenous antibiotic therapy through 01/21/2018 12/31/2017 patient is stable at this time status post the NG tube has been placed for her ileus. Nutrition via TPN. Antibiotic therapy with the meropenem and vancomycin continues through 01/21/2018. Follow up cultures as indicated. Wound VAC is being changed as per cardiothoracic surgery. The pressure ulcerations to the buttocks area and posterior scalp are improving. 01/03/2018 reveals the patient to be feeling somewhat better today. Pain level is 0. Tolerating nutrition well at this point in time and has been cleared for a PEG tube to be placed to allow easier nutrition when she is ready for [facility]. He has tolerated IMV trial today quite well. Antibiotic therapy continues to 01/21/2018. 01/04/2018 H and doing well on her current CPAP trials. PEG tube tomorrow. If this occurs she will then be able to have anticoagulation, cardioversion. Once cardioversion occurs in her heart rate improve she would then be a candidate [facility]. Antibiotic therapy until 01/21/2018 01/05/2018 patient has had her PEG tube placed today. Other than some pain at that site she's doing quite well. Tolerating multiple hours of CPAP today. There was a momentary standing with a multiperson assist. When she is anticoagulated will then be able to have a cardioversion after which she will be transferred [facility] antibiotic therapy through 01/21/2018 01/06/2018 patient is status post PEG tube placement. Is receiving 20 mL/h of nutrition and tolerating it well. As she is improving and will move to her goal. Enhance nutrition will be an important part of her overall healing and eventual long-term weaning and eventual decannulation from her tracheostomy. For her sternal dehiscence she is on antibiotic therapy through 01/21/2018. Her pain control is adequate. Her spirits are good. She is somewhat anxious about standing with worries about falling but is doing better today. 01/07/2018 patient is doing better today with improved pain. Has been seen by cardiology and may not need cardioversion noted her heart rate is improved if she should have some further recovery after her PEG tube is placed in improve nutrition. Denies new acute difficulties at this time. As she improves will eventually be transitioned to the long-term weaning facility at her antibiotic therapy continues through 01/21/2018. 01/08/2018 patient continues to have ongoing improvement. Pain level is only a 2. Doing well with her tube feeding has met her nutritional goal. If her heart rate continues to improve she may not need cardioversion, however if heart rate remains greater than 100 she likely be cardioverted early next week when she has achieved adequate anticoagulation. She will then be moved to the long-term facility for weaning and physical therapy. Antibiotic therapy continues through 01/21/2018. Current Visit: Yes Status: Acute Code(s): T81.32XA - DISRUPTION OF INTERNAL OPERATION (SURGICAL) WOUND, NEC, INIT SNOMED Code(s): 62569900
[2018-01-09] MEDS: METOCLOPRAMIDE 5 MG/ML 2 ML VIAL IVP SCH ×4 (00:53→20:13)
[2018-01-09] MEDS: INSULIN ASPART 100 UNIT/ML 1 ML 10 ML VIAL SQ SCH ×4 (00:54→17:10)
[2018-01-09] MEDS: MEROPENEM 1 GM in SODIUM CHLORIDE 0.9% 100 ML IVPB SCH ×3 (00:54→15:41)
[2018-01-09] MEDS: HEPARIN SODIUM,PORCINE 5,000 UNIT/ML 1 ML VIAL SQ SCH (00:54)
[2018-01-09 00:55] LABS: Glucose,Whole Blood 105 mg/dL (75-99)
[2018-01-09] MEDS: IPRATROPIUM-ALBUTEROL 3 ML NEB INHALATION SCH ×6 (03:30→23:40)
[2018-01-09 05:44] LABS: Anisocytosis Moderate; HCT 25.4 % (34.0-46.0); HGB 7.8 gm/dL (11.4-16.0); Hypochromasia Marked; MCHC 30.6 g/dL (31.0-37.0); MCV 88.3 fL (80.0-100.0); Mean Platelet Volume 7.6; Platelet Count 279 k/uL (150-450); RBC 2.88 m/uL (3.80-5.40); RDW 21.5 % (11.5-15.5); WBC 14.2 k/uL (3.8-10.6)
[2018-01-09 05:53] LABS: INR 2.9 (<1.2); Prothrombin Time 26.4 sec (9.0-12.0)
[2018-01-09 06:01] LABS: Anion Gap 8 mmol/L; Blood Urea Nitrogen 41 mg/dL (7-17); Calcium 8.3 mg/dL (8.4-10.2); Carbon Dioxide 31 mmol/L (22-30); Chloride 99 mmol/L (98-107); Glucose 103 mg/dL (74-99); Magnesium 2.2 mg/dL (1.6-2.3); Phosphorus 3.5 mg/dL (2.5-4.5); Potassium 4.4 mmol/L (3.5-5.1); Sodium 138 mmol/L (137-145)
[2018-01-09] MEDS: DILTIAZEM ORAL 60 MG TAB PO SCH ×3 (06:09→22:02)
[2018-01-09 06:10] LABS: Glucose,Whole Blood 123 mg/dL (75-99)
--- NOTE | 2018-01-09 06:52 | XR ---
EXAMINATION TYPE: XR chest 1V portable DATE OF EXAM: 01/09/2018 HISTORY: post cardiac surgery. REFERENCE: Previous study dated 01/08/2018. FINDINGS: A tracheostomy tube is in place. Its tip overlies the tracheal air column in this single fr ontal projection. There are skin sutures present overlying the mediastinum. The heart is enlarged. There is left basila r airspace disease. There is a left effusion. There is vascular congestion and worsening interstitial change. IMPRESSION: SLIGHT WORSENING IN THE PATIENT'S CONGESTIVE HEART FAILURE.
[2018-01-09 07:22] LABS: ABG Base Excess 6.6 mmol/L; ABG HCO3 31 mmol/L (21-25); ABG PCO2 44 mmHg (35-45); ABG PH 7.45 (7.35-7.45); ABG PO2 113 mmHg (83-108); ABG TCO2 32 mmol/L (19-24)
[2018-01-09] MEDS: BUDESONIDE 1 MG/2 ML NEBU INHALATION SCH ×2 (07:50→20:13)
[2018-01-09] MEDS: PANTOPRAZOLE 40 MG TABLET PO SCH (08:25)
[2018-01-09] MEDS: AMIODARONE 200 MG TAB PO SCH ×2 (08:26→20:13)
[2018-01-09] MEDS: ASPIRIN 81 MG PO SCH (08:26)
[2018-01-09] MEDS: METOPROLOL TARTRATE 50 MG TAB PEG/G-TUBE SCH ×2 (08:26→20:13)
[2018-01-09] MEDS: LACTOBACILLUS ACIDOPH & BULGAR 1 EACH PACKET PO SCH ×3 (08:26→22:02)
[2018-01-09] MEDS: ATORVASTATIN 40 MG TAB PO SCH (08:26)
[2018-01-09] MEDS: SILVER sulfADIAZINE Cream 400 GM 1 APPLIC APPLIC TOPICAL SCH ×2 (08:27→20:14)
[2018-01-09] MEDS: VANCOMYCIN 1,500 MG in SODIUM CHLORIDE 0.9% 250 ML IVPB SCH (08:31)
--- NOTE | 2018-01-09 11:02 | P.PN ---
Subjective Progress Note Date: 01/09/18 Principal diagnosis: Severe mitral valve regurgitation. Coronary artery disease. Preoperative paroxysmal atrial fibrillation on outpatient Coumadin for anticoagulation. Recent hospitalization for lower GI bleed, and duodenal ulcer. History of left subclavian stenosis with stent placement 2014 with recent discovery of critical re-in-stent stenosis. Previous tobacco dependence with preoperative FEV1 60% of predicted. Hypertension. Hyperlipidemia. Depression on Lexapro. Gallbladder disease. Family history of heart disease. Preoperative nasal swab positive for MRSA. Preoperative anemia. POD #45 and Mitral valve replacement using a 25 mm Ribera bioprosthetic tissue valve. Coronary artery bypass grafting 1, a reverse greater saphenous vein graft to the obtuse marginal coronary artery. Endoscopic harvesting of the left greater saphenous vein. Modified MAZE procedure. The report wasn't back yet not back in Ligation of the left atrial appendage using a 40 mm AtriClip. Epi- aortic ultrasound. Intraoperative transesophageal echocardiogram. Intraoperative left ventricular wall tear, an unexpected but potential outcome of surgery. Acute blood loss anemia, an expected outcome given patient's preoperative anemia and intraoperative bleeding. Postoperative prolonged mechanical ventilation secondary to hemodynamic instability, an unexpected but potential outcome of surgery given the extensive nature of her postoperative course. Sternal incision dehiscence, possible outcome of surgery given the patient's obesity, nutrition status and ability. POD #30 sternal wound debridement with placement of wound VAC. POD #25 bronchoscopy and bronchoalveolar lavage of the left lower lobe and extraction of mucous plug POD #17 right rectus abdominous muscle flap closure, open sternal wound. Closure of sternal wound and muscle flap with skin graft substitute, 238 cm. Implantation of reconstructive graft for closure of abdominal wall wound, [address] Krause. Postoperative left lower lobe collapse secondary to mucous plugging, and unexpected but potential outcome of surgery. Bronchial washings positive for Rachana species. Postoperative ileus, an unexpected but potential outcome of surgery. POD #16 placement of a #8 Shiley nonfenestrated tracheostomy tube. POD #4 placement of percutaneous endoscopic gastrostomy tube. The patient is currently lying in bed with her head elevated at 45. She is in no acute distress. Patient is currently on mechanical ventilator support with current vent settings: Assist-control 20, TV 400, FiO2 35%, PEEP 5. She denies any complaints of pain or shortness of breath at this time. Her PEG tube remains in place with vital high-protein 1.0 kenrick. infusing at goal rate of 57 mL per hour. Objective - Vital Signs Vital signs: Vital Signs Temp 98.1 F 01/09/18 08:00 Pulse 108 H 01/09/18 09:00 Resp 27 H 01/09/18 09:00 BP 106/58 01/04/18 08:59 Pulse Ox 98 01/09/18 09:00 Intake & Output 01/08/18 01/09/18 01/09/18 18:59 06:59 18:59 Intake Total 1203 1271 524 Output Total 950 910 330 Balance 253 361 194 Weight 99.2 kg 102.8 kg 102.8 kg Intake: IV 386 269 353 Dextrose 5%-0.45% NaCl 1, 50 130 0 000 ml @ 10 mls/hr IV . Q24H CARLEE Rx#:[id number] Meropenem 1 gm In Sodium 300 100 100 Chloride 0.9% 100 ml @ 200 mls/hr IVPB Q8HR CARLEE Rx#:[id number] Pressure Bag 36 39 3 Vancomycin 1,500 mg In 250 Sodium Chloride 0.9% 250 ml @ 125 mls/hr IVPB Q36H CARLEE Rx#:[id number] Tube Feeding 787 912 171 Other 30 90 Output: Drainage 425 495 250 Right Abdomen 425 495 250 Urine 525 415 80 Other: Voiding Method Indwelling Catheter Indwelling Catheter Indwelling Catheter # Voids 1 # Bowel Movements 1 1 ABP, PAP, CO, CI - Last Documented Arterial Blood Pressure 112/62 Pulmonary Artery Pressure 38/33 Cardiac Output 5.8 Cardiac Index 2.9 - Constitutional General appearance: Present: cooperative, no acute distress, obese - EENT ENT: Present: hearing grossly normal - Neck Details: No JVD, neck is supple, no lymphadenopathy. #8 Shiley tracheostomy midline and intact. - Respiratory Details: Lung sounds are essentially clear throughout, diminished to her bilateral bases. Respirations are symmetrical and unlabored with mechanical ventilator support. Current ventilator settings are as follows: Assist control 20, TV 400 , FiO2 35%, PEEP 5. #[address] and secured. Oxygen saturation are 98% with mechanical ventilator support. - Cardiovascular Details: Regular rhythm and tachycardic rate. S1 and S2 present, negative for S3, gallop or murmur. Open chest wound with VAC dressing in place. Bedside telemetry showing atrial flutter heart rate 108. +1 for full edema to her bilateral upper and lower extremities. Vance wraps from toes to thighs and knee high sequential compression devices in place from her bilateral lower extremities. Right brachial arterial line and left brachial PICC line in place and functioning. - Gastrointestinal Gastrointestinal Comment(s): Abdomen is soft, nontender and nondistended. Obese. Active bowel sounds to all 4 abdominal quadrants. PEG tube in place with vital high-protein 1.0 kenrick infusing at goal rate of 57 mL per hour with automatic H2O flushes. Bowel movement this a.m. 01/09/2018. - Genitourinary Genitourinary Comment(s): Adequate urine output. Mason catheter for accurate I&O. Clear yellow urine with scant sedimentation. 295 mL output in the last 8 hours. - Integumentary Integumentary Comment(s): Skin is warm and dry. Midline open chest wound with VAC dressing in place, changed on Wednesday01/07/2018. Right abdominal incision clean dry and approximated. [place] intact. HENRI drain in place to her right lower quadrant abdomen with copious thin straw-colored drainage. 375 mL output of the HENRI in the last 8 hours. Unstageable wound to her occipital area on her head clean and dry. No drainage present. Pressure wound measuring 2.0 x 3.8 cm underneath her tracheostomy. - Neurologic Neurologic: Present: CNII-XII intact - Musculoskeletal Musculoskeletal: Present: generalized weakness, strength equal bilaterally - Psychiatric Psychiatric: Present: A&O x's 3, appropriate affect, intact judgment & insight - Allied health notes Allied health notes reviewed: nursing - Labs CBC & Chem 7: 01/09/18 05:30 01/09/18 05:30 Labs: Abnormal Lab Results - Last 24 Hours (Table) 01/08/18 01/08/18 01/09/18 Range/Units 11:51 18:04 00:53 WBC (3.8-10.6) k/uL RBC (3.80-5.40) m/uL Hgb (11.4-16.0) gm/dL Hct (34.0-46.0) % MCHC (31.0-37.0) g/dL RDW (11.5-15.5) % PT (9.0-12.0) sec INR (<1.2) ABG pO2 (83-108) mmHg ABG HCO3 (21-25) mmol/L ABG Total CO2 (19-24) mmol/L ABG O2 Saturation (94-97) % Carbon Dioxide (22-30) mmol/L BUN (7-17) mg/dL Glucose (74-99) mg/dL POC Glucose (mg/dL) 109 H 111 H 105 H (75-99) mg/dL Calcium (8.4-10.2) mg/dL 01/09/18 01/09/18 01/09/18 Range/Units 05:30 05:30 05:30 WBC 14.2 H (3.8-10.6) k/uL RBC 2.88 L (3.80-5.40) m/uL Hgb 7.8 L (11.4-16.0) gm/dL Hct 25.4 L (34.0-46.0) % MCHC 30.6 L (31.0-37.0) g/dL RDW 21.5 H (11.5-15.5) % PT 26.4 H (9.0-12.0) sec INR 2.9 H (<1.2) ABG pO2 (83-108) mmHg ABG HCO3 (21-25) mmol/L ABG Total CO2 (19-24) mmol/L ABG O2 Saturation (94-97) % Carbon Dioxide 31 H (22-30) mmol/L BUN 41 H (7-17) mg/dL Glucose 103 H (74-99) mg/dL POC Glucose (mg/dL) (75-99) mg/dL Calcium 8.3 L (8.4-10.2) mg/dL 01/09/18 01/09/18 Range/Units 06:08 07:20 WBC (3.8-10.6) k/uL RBC (3.80-5.40) m/uL Hgb (11.4-16.0) gm/dL Hct (34.0-46.0) % MCHC (31.0-37.0) g/dL RDW (11.5-15.5) % PT (9.0-12.0) sec INR (<1.2) ABG pO2 113 H (83-108) mmHg ABG HCO3 31 H (21-25) mmol/L ABG Total CO2 32 H (19-24) mmol/L ABG O2 Saturation 99.0 H (94-97) % Carbon Dioxide (22-30) mmol/L BUN (7-17) mg/dL Glucose (74-99) mg/dL POC Glucose (mg/dL) 123 H (75-99) mg/dL Calcium (8.4-10.2) mg/dL - Imaging and Cardiology Chest x-ray: report reviewed, image reviewed Assessment and Plan (1) Acute blood loss as cause of postoperative anemia Current Visit: Yes Status: Acute Code(s): D62 - ACUTE POSTHEMORRHAGIC ANEMIA SNOMED Code(s): 19099736382263456 (2) CAD (coronary artery disease) Current Visit: Yes Status: Chronic Code(s): I25.10 - ATHSCL HEART DISEASE OF [place] CORONARY ARTERY W/O ANG PCTRS SNOMED Code(s): 27438467 (3) Family history of coronary artery disease Current Visit: Yes Status: Chronic Code(s): Z82.49 - FAMILY HX OF ISCHEM HEART DIS AND OTH DIS OF THE CIRC SYS SNOMED Code(s): 651728755 (4) Hyperlipidemia Current Visit: Yes Status: Chronic Code(s): E78.5 - HYPERLIPIDEMIA, UNSPECIFIED SNOMED Code(s): 67585523 (5) Hypertension Current Visit: Yes Status: Chronic Code(s): I10 - ESSENTIAL (PRIMARY) HYPERTENSION SNOMED Code(s): 13088350 (6) Severe mitral regurgitation Current Visit: Yes Status: Chronic Code(s): I34.0 - NONRHEUMATIC MITRAL ( VALVE) INSUFFICIENCY SNOMED Code(s): 24341232 (7) Stenosis of left subclavian artery Current Visit: Yes Status: Chronic Code(s): I77.1 - STRICTURE OF ARTERY SNOMED Code(s): 61938739614140453 (8) PAD (peripheral artery disease) Current Visit: No Status: Acute Code(s): I73.9 - PERIPHERAL VASCULAR DISEASE , UNSPECIFIED SNOMED Code(s): 891500610 (9) History of GI bleed Current Visit: No Status: Resolved Code(s): Z87.19 - PERSONAL HISTORY OF OTHER DISEASES OF THE DIGESTIVE SYSTEM SNOMED Code(s): 262688538 (10) Paroxysmal atrial fibrillation Current Visit: No Status: Resolved Code(s): I48.0 - PAROXYSMAL ATRIAL FIBRILLATION SNOMED Code(s): 193208344 (11) Elevated aspartate aminotransferase level Current Visit: Yes Status: Acute Code(s): R74.0 - NONSPEC ELEV OF LEVELS OF TRANSAMNS & LACTIC ACID DEHYDRGNSE SNOMED Code(s): 945293711 (12) Ileus, postoperative Current Visit: Yes Status: Acute Code(s): K91.89 - OTH POSTPROCEDURAL COMPLICATIONS AND DISORDERS OF DGSTV SYS; K56.7 - ILEUS, UNSPECIFIED SNOMED Code(s): 784677271 Plan: 1. Continue low dose aspirin, statin, subcu heparin, beta krunal. 2. Continue amiodarone for atrial fibrillation/atrial flutter prophylaxis. No further IV amiodarone. 3. Continue Cardizem 60 mg per PEG tube every 8 hours for rate control. 4. Ventilator management per pulmonology. Wean as tolerated. 5. No Coumadin today as her INR is therapeutic at 2.9. Will dose based on daily PT/INR. Once therapeutic, Dr. Crawley will possibly cardiovert patient. 6. Continue meropenem, Vanco management per Dr. Olivera until 01/21/2018. 7. Will monitor labs, chest x-rays. 8. Bronchodilators per pulmonology. 9. Goal range for INR is 2.2-2.5. 10. GI/DVT prophylaxis. 11. Increase activity. PT/OT/cardiac rehab following. 12. Keep abdominal drain until output is less then 30 mL in [address] Krause. 13. Keep Mason for strict accurate intake and output. Change out every 7 days. 14. Wound VAC to be changed on Wednesday, Wednesday, and Wednesday by nurse practitioner. Changed last on Wednesday01/07/2018. 15. Local wound care to back of head and lower back. Silvadene for left upper thigh skin tear. 16. Place DuoDERM dressing to her pressure area under her tracheostomy tube More recommendations as patient progresses. 17. Send stool for C. difficile. 18. Anticipate discharge to [facility] early next week. Time with Patient: Greater than 30
[2018-01-09 12:20] LABS: Glucose,Whole Blood 123 mg/dL (75-99)
[2018-01-09] MEDS: HYDROcodone/APAP 5-325MG 1 EACH TAB PO PRN ×2 (12:58→18:37)
--- NOTE | 2018-01-09 13:09 | P.PN ---
Subjective Progress Note Date: 01/09/18 Principal diagnosis: Status post open heart This is a pleasant 67-year-old female patient who sees Dr. Crawley as an outpatient who underwent an open heart surgery where she had CABG 1 associated with mitral valve replacement and maze procedure, with a postoperative course was complex and complicated by respiratory failure, chest incision dehiscence, where the patient did have to go to the OR again and have another surgery. Currently the patient is in chronic respiratory failure and she does have a tracheostomy hemodynamically she continues to have atrial flutter with heart rate around 108 beats per minute.The hemoglobin continues to be around 8. The INR today is 2.9. We are holding any Coumadin today and will repeat the INR tomorrow morning. Objective - Vital Signs Vital signs: Vital Signs Temp 98.1 F 01/09/18 08:00 Pulse 108 H 01/09/18 11:20 Resp 18 01/09/18 11:00 BP 106/58 01/04/18 08:59 Pulse Ox 96 01/09/18 11:00 Intake & Output 01/08/18 01/09/18 01/09/18 18:59 06:59 18:59 Intake Total 1203 1271 644 Output Total 950 910 410 Balance 253 361 234 Weight 99.2 kg 102.8 kg 102.8 kg Intake: IV 386 269 359 Dextrose 5%-0.45% NaCl 1, 50 130 0 000 ml @ 10 mls/hr IV . Q24H [facility] Rx#:[id number] Meropenem 1 gm In Sodium 300 100 100 Chloride 0.9% 100 ml @ 200 mls/hr IVPB Q8HR [facility] Rx#:[id number] Pressure Bag 36 39 9 Vancomycin 1,500 mg In 250 Sodium Chloride 0.9% 250 ml @ 125 mls/hr IVPB Q36H [facility] Rx#:[id number] Tube Feeding 787 912 285 Other 30 90 Output: Drainage 425 495 250 Right Abdomen 425 495 250 Urine 525 415 160 Other: Voiding Method Indwelling Catheter Indwelling Catheter Indwelling Catheter # Voids 1 # Bowel Movements 1 1 ABP, PAP, CO, CI - Last Documented Arterial Blood Pressure 103/65 Pulmonary Artery Pressure 38/33 Cardiac Output 5.8 Cardiac Index 2.9 - Labs CBC & Chem 7: 01/09/18 05:30 04/08/18 05:30 Labs: Abnormal Lab Results - Last 24 Hours (Table) 01/08/18 01/09/18 01/09/18 Range/Units 18:04 00:53 05:30 WBC (3.8-10.6) k/uL RBC (3.80-5.40) m/uL Hgb (11.4-16.0) gm/dL Hct (34.0-46.0) % MCHC (31.0-37.0) g/dL RDW (11.5-15.5) % PT (9.0-12.0) sec INR (<1.2) ABG pO2 (83-108) mmHg ABG HCO3 (21-25) mmol/L ABG Total CO2 (19-24) mmol/L ABG O2 Saturation (94-97) % Carbon Dioxide 31 H (22-30) mmol/L BUN 41 H (7-17) mg/dL Glucose 103 H (74-99) mg/dL POC Glucose (mg/dL) 111 H 105 H (75-99) mg/dL Calcium 8.3 L (8.4-10.2) mg/dL 01/09/18 01/09/18 01/09/18 Range/Units 05:30 05:30 06:08 WBC 14.2 H (3.8-10.6) k/uL RBC 2.88 L (3.80-5.40) m/uL Hgb 7.8 L (11.4-16.0) gm/dL Hct 25.4 L (34.0-46.0) % MCHC 30.6 L (31.0-37.0) g/dL RDW 21.5 H (11.5-15.5) % PT 26.4 H (9.0-12.0) sec INR 2.9 H (<1.2) ABG pO2 (83-108) mmHg ABG HCO3 (21-25) mmol/L ABG Total CO2 (19-24) mmol/L ABG O2 Saturation (94-97) % Carbon Dioxide (22-30) mmol/L BUN (7-17) mg/dL Glucose (74-99) mg/dL POC Glucose (mg/dL) 123 H (75-99) mg/dL Calcium (8.4-10.2) mg/dL 01/09/18 01/09/18 Range/Units 07:20 12:18 WBC (3.8-10.6) k/uL RBC (3.80-5.40) m/uL Hgb (11.4-16.0) gm/dL Hct (34.0-46.0) % MCHC (31.0-37.0) g/dL RDW (11.5-15.5) % PT (9.0-12.0) sec INR (<1.2) ABG pO2 113 H (83-108) mmHg ABG HCO3 31 H (21-25) mmol/L ABG Total CO2 32 H (19-24) mmol/L ABG O2 Saturation 99.0 H (94-97) % Carbon Dioxide (22-30) mmol/L BUN (7-17) mg/dL Glucose (74-99) mg/dL POC Glucose (mg/dL) 123 H (75-99) mg/dL Calcium (8.4-10.2) mg/dL Assessment and Plan Assessment: Assessment #1 respiratory failure #2 status post open heart and status post CABG and mitral valve replacement #3 persistent atrial flutter #4 congestive heart failure #5 sternal wound infection #6 peripheral vascular disease and known left subclavian stenosis #7 multiple comorbid conditions Plan #1 hold the Coumadin today and repeat the INR tomorrow #2 follow-up with the patient.
--- NOTE | 2018-01-09 13:20 | P.PN ---
Subjective Progress Note Date: 01/09/18 Principal diagnosis: Status post CABG and mitral valve replacement postoperative day # 45 This is a 67-year-old female, status post 1 vessel bypass surgery and mitral valve replacement, patient is postoperative day #39. Patient also had surgical flap of the sternal 1 as she developed wound dehiscence and infection. Postoperative day #13. Patient also underwent tracheostomy and she is postoperative day #10. Patient remains on mechanical ventilation, continues to have chronic atelectasis and possible pneumonia in the left lower lobe, remains on assist control mode of mechanical ventilation, and today I will plan to try her on IMV and pressure support hoping to cut down the IMV rate gradually and possibly keep her on pressure support only. In the meantime the patient has been evaluated by [facility] care [facility] for possible transfer to their facility. Cardiac-mcguire the patient remains in atrial flutter, ventricular rate is about 120. That is being addressed by cardiology on the case. Her ventilator settings are tidal volume of 400 assist control rate of 20 FiO2 of 35 % PEEP of 5. Toprol pressure is about 20. Chest x-ray as noted above. Suspect some component of mild congestive heart failure. And left lower lobe atelectasis. Labs were all reviewed, ABG showed a pO2 of 121 pCO2 of 38 pH of 7.52 basic metabolic profile is normal BUN is 43 creatinine 0.91 WBC count is 13.7 hemoglobin is 8.1. Reevaluated today on 01/04/2018, patient remains on mechanical ventilation, with able to elevate many hours of pressure support of 12 and IMV of 6 yesterday. Today I plan to try pressure support of 12 and CPAP. Patient is scheduled to have a PEG tube placement is also scheduled to have cardioversion after a good course of anticoagulation and PEG tube placement. Hopefully this will be all done this week, and then we can potentially consider transferring the patient to a select care specialty. ABG today showed a pO2 of 99 pCO2 of 42 pH of 7.49. Rest of the labs were noted to be unremarkable. Chest x-ray is basically the same, continues to show mild congestive changes, and left retrocardiac opacity with left lower lobe atelectasis. Patient was reevaluated today on 01/05/2018, remains on mechanical ventilation, plan to give her another trial today of IMV pressure support. Patient did relatively well yesterday, but still not quite ready for extubation. Today she had a PEG tube placed by Dr. Aldridge, and she may require cardioversion tomorrow. Overall the patient continues to do about the same. Her chest x-ray continues to show some left perihilar infiltrate and left lower lobe atelectasis. Labs including CBC ABG and basic metabolic profile were all reviewed. Her ABG showed a pO2 of 115 pCO2 of 41 pH of 7.47 on 35% FiO2. Hemoglobin is 8.3 basic metabolic profile is normal. Renal profile is normal. Reevaluated today on 01/06/2018, patient is doing well, PEG tube was placed yesterday uneventfully. Patient will go on to another trial of weaning utilizing a pressure support today with CPAP. She will be on a pressure support of 12. Patient may undergo cardioversion tomorrow, waiting to be fully anticoagulated. Chest x-ray continues to show some atelectasis at the left base , but her ABG is excellent and her labs are excellent. ABG showed a pO2 of 116 pCO2 of 37 pH of 7.49 and this was on 35% FiO2 and assist control mode of mechanical ventilation. Her CBC showed a hemoglobin of 8 WBC count of 11.4. Basic metabolic profile and renal profile are normal. Reevaluated today on 01/07/2018, patient continues to do relatively well, remains in atrial flutter but her rate now is 110. Patient is tolerating enteral feeding via PEG tube. Tolerating long hours of pressure support of 12. And CPAP. He tried to go on a pressure support of 10, however significant drop was noted in her tidal volumes, hence I kept her on pressure support of 12 for today. Chest x-ray is basically about the same showing chronic changes in the left lower lobe. ABG today showed a pO2 of 140 pCO2 of 27 pH of 7.51 and her basic metabolic profile is relatively normal renal profile is normal. On 01/08/2018, patient remains on mechanical ventilation, she is on assist control mode of mechanical ventilation at night, and using today she is on pressure support and CPAP with pressure support of 12. Seems to be tolerating that quite well, however unable to go down below 12 since her tidal volumes become quite low when the patient is placed on pressure support of 10 or 8. Hence we will continue with daily trials on pressure support of 12, and hopefully in the next few days would be able to cut it down lower. Chest x-ray was reviewed no major change in the left lower lobe, labs were all reviewed. Hemodynamically the patient is stable, she is still in atrial flutter with a rate of 110. On 01/09/2018, patient remains on the same ventilator settings, has been tolerating pressure support of weaning she is scheduled to have possible cardioversion tomorrow, and possible arrangements were made to transfer to a select care specialty.no major clinical issues over the last 24 hours.labs were reviewed.chest x-ray was also reviewed. Objective - Vital Signs Vital signs: Vital Signs Temp 98.1 F 01/09/18 08:00 Pulse 108 H 01/09/18 11:20 Resp 18 01/09/18 11:00 BP 106/58 01/04/18 08:59 Pulse Ox 96 01/09/18 11:00 Intake & Output 01/08/18 01/09/18 01/09/18 18:59 06:59 18:59 Intake Total 1203 1271 644 Output Total 950 910 410 Balance 253 361 234 Weight 99.2 kg 102.8 kg 102.8 kg Intake: IV 386 269 359 Dextrose 5%-0.45% NaCl 1, 50 130 0 000 ml @ 10 mls/hr IV . Q24H [facility] Rx#:[id number] Meropenem 1 gm In Sodium 300 100 100 Chloride 0.9% 100 ml @ 200 mls/hr IVPB Q8HR [facility] Rx#:[id number] Pressure Bag 36 39 9 Vancomycin 1,500 mg In 250 Sodium Chloride 0.9% 250 ml @ 125 mls/hr IVPB Q36H [facility] Rx#:[id number] Tube Feeding 787 912 285 Other 30 90 Output: Drainage 425 495 250 Right Abdomen 425 495 250 Urine 525 415 160 Other: Voiding Method Indwelling Catheter Indwelling Catheter Indwelling Catheter # Voids 1 # Bowel Movements 1 1 ABP, PAP, CO, CI - Last Documented Arterial Blood Pressure 103/65 Pulmonary Artery Pressure 38/33 Cardiac Output 5.8 Cardiac Index 2.9 - Exam General appearance: Present: cooperative, no acute distress, obese, - Neck Details: Neck is supple, no JVD, no lymphadenopathy. Tracheostomy tube is midline and intact, sutures in place. - Respiratory Details: Lungs sounds essentially diminished at the left base, Respirations are symmetrical and nonlabored with mechanical ventilator support. - Cardiovascular Details: Pain is tachycardic at regular rate and rhythm seems to be regular. This may be a a flutter with 2 to one block. S1 and S2 present, negative for S3 , gallop or murmur. - Gastrointestinal Gastrointestinal Comment(s): Abdomen is soft, nontender, no megaly, no rebound, PEG tube is intact. - Genitourinary Genitourinary Comment(s): Mason catheter for accurate I&O. Draining clear yellow urine. - Integumentary Integumentary Comment(s): Skin is warm and dry. No clubbing or cyanosis. Both lower extremities are wrapped with Vance bandage. - Neurologic Neurologic Comment(s): Alert and following verbal commands. No gross focal neurologic deficit noted. - Musculoskeletal Musculoskeletal: Present: generalized weakness, strength equal bilaterally, bipedal edema noted. - Psychiatric Psychiatric Comment(s): Psychiatric: Normal mood, affect, and mental status examination noted. - Labs CBC & Chem 7: 01/09/18 05:30 01/09/18 05:30 Labs: Abnormal Lab Results - Last 24 Hours (Table) 01/08/18 01/09/18 01/09/18 Range/Units 18:04 00:53 05:30 WBC (3.8-10.6) k/uL RBC (3.80-5.40) m/uL Hgb (11.4-16.0) gm/dL Hct (34.0-46.0) % MCHC (31.0-37.0) g/dL RDW (11.5-15.5) % PT (9.0-12.0) sec INR (<1.2) ABG pO2 (83-108) mmHg ABG HCO3 (21-25) mmol/L ABG Total CO2 (19-24) mmol/L ABG O2 Saturation (94-97) % Carbon Dioxide 31 H (22-30) mmol/L BUN 41 H (7-17) mg/dL Glucose 103 H (74-99) mg/dL POC Glucose (mg/dL) 111 H 105 H (75-99) mg/dL Calcium 8.3 L (8.4-10.2) mg/dL 01/09/18 01/09/18 01/09/18 Range/Units 05:30 05:30 06:08 WBC 14.2 H (3.8-10.6) k/uL RBC 2.88 L (3.80-5.40) m/uL Hgb 7.8 L (11.4-16.0) gm/dL Hct 25.4 L (34.0-46.0) % MCHC 30.6 L (31.0-37.0) g/dL RDW 21.5 H (11.5-15.5) % PT 26.4 H (9.0-12.0) sec INR 2.9 H (<1.2) ABG pO2 (83-108) mmHg ABG HCO3 (21-25) mmol/L ABG Total CO2 (19-24) mmol/L ABG O2 Saturation (94-97) % Carbon Dioxide (22-30) mmol/L BUN (7-17) mg/dL Glucose (74-99) mg/dL POC Glucose (mg/dL) 123 H (75-99) mg/dL Calcium (8.4-10.2) mg/dL 18 01/09/18 Range/Units 07:20 12:18 WBC (3.8-10.6) k/uL RBC (3.80-5.40) m/uL Hgb (11.4-16.0) gm/dL Hct (34.0-46.0) % MCHC (31.0-37.0) g/dL RDW (11.5-15.5) % PT (9.0-12.0) sec INR (<1.2) ABG pO2 113 H (83-108) mmHg ABG HCO3 31 H (21-25) mmol/L ABG Total CO2 32 H (19-24) mmol/L ABG O2 Saturation 99.0 H (94-97) % Carbon Dioxide (22-30) mmol/L BUN (7-17) mg/dL Glucose (74-99) mg/dL POC Glucose (mg/dL) 123 H (75-99) mg/dL Calcium (8.4-10.2) mg/dL Assessment and Plan Assessment: 1 coronary artery bypass surgery with single-vessel bypass and mitral valve replacement/bioprosthetic valve. The patient is postop day # 45 2 sternal wound infection with Serratia marcescens with subsequent dehiscence. The patient underwent wound debridement with subsequent muscle flap and the patient is postop day # 19 3 prolonged ventilator dependent respiratory failure, status post tracheostomy tube insertion and the patient is postop day # 16 Patient remains on assist control mode of ventilation . We will try again IMV pressure support mode of mechanical ventilation and gradually transition to pressure support only with CPAP. 4 acute on chronic respiratory failure, multifactorial. The patient's sternal wound and the muscle flap is healing for now. 5 increased edema both upper and lower extremities, improving 6 tachycardia with an a flutter rhythm, cardiology is on the case. She is mainly maintained on oral medications. No plans to cardiovert per cardiology 7 peripheral vascular disease 8 left subclavian artery stenosis status post insertion of an endovascular stent 9 anemia, a expected outcome of prolonged ICU stay and multiple surgeries 10 ileus, improving patient is on enteral feeding 11 left lung collapse status post bronchoscopy and therapeutic it was suctioning. Patient has Rachana within the sputum currently on Diflucan. Most recent chest x-ray shows adequate rest of both lungs and there is some mild component of pulmonary congestion. 12 hypertension 13 hyperlipidemia 14 anemia multifactorial with a hemoglobin level of 8.3 today 15 status post PEG tube placement postoperative day #4 Recommendation: Continue ventilatory support, continue antibiotics, nutritional support, continue enteral feeding via PEG tube, continue daily trials of pressure support and CPAP as a weaning modality, continue physical therapy, will follow closely. planning cardioversion possibly tomorrow, and possible transfer in the next 24-40 hours to [facility] care specialty. Time with Patient: Less than 30
--- NOTE | 2018-01-09 17:07 | P.PN ---
Subjective Progress Note Date: 01/09/18 Principal diagnosis: Status post CABG and mitral valve replacement postoperative day # 44 Is a 67-year-old female patient who is status post 1 vessel bypass surgery and mitral valve replacement; patient also had a surgical flap of sternum secondary to wound dehiscence and infection; patient also underwent tracheostomy and remains on mechanical ventilation; patient has been on pressure support and CPAP as leaning trial and has been tolerating it well; planning to continue with weaning trials daily 01/08/2018 Patient remains on mechanical ventilation and ICU; pulmonary service is following ventilatory management;Cardiology is following and managing Coumadin therapy; will continue to monitor PT/INR; cardiology recommending cardioversion if she remains tachycardic Patient remains on ICU on ventilator; has been going through weaning trials with pressure support ventilation; patient is scheduled for possible cardioversion tomorrow; possible transfer to [facility] care specialty tomorrow once arrangements are made. Objective - Vital Signs Vital signs: Vital Signs Temp 98.1 F 01/09/18 08:00 Pulse 108 H 01/09/18 15:56 Resp 12 01/09/18 15:00 BP 106/58 01/04/18 08:59 Pulse Ox 98 01/09/18 15:00 Intake & Output 01/08/18 01/09/18 01/09/18 18:59 06:59 18:59 Intake Total 1203 1271 941 Output Total 950 910 730 Balance 253 361 211 Weight 99.2 kg 102.8 kg 102.8 kg Intake: IV 386 269 371 Dextrose 5%-0.45% NaCl 1, 50 130 0 000 ml @ 10 mls/hr IV . Q24H [facility] Rx#:[id number] Meropenem 1 gm In Sodium 300 100 100 Chloride 0.9% 100 ml @ 200 mls/hr IVPB Q8HR [facility] Rx#:[id number] Pressure Bag 36 39 21 Vancomycin 1,500 mg In 250 Sodium Chloride 0.9% 250 ml @ 125 mls/hr IVPB Q36H [facility] Rx#:[id number] Tube Feeding 787 912 570 Other 30 90 Output: Drainage 425 495 390 Right Abdomen 425 495 390 Urine 525 415 340 Other: Voiding Method Indwelling Catheter Indwelling Catheter Indwelling Catheter # Voids 1 # Bowel Movements 1 1 ABP, PAP, CO, CI - Last Documented Arterial Blood Pressure 105/60 Pulmonary Artery Pressure 38/33 Cardiac Output 5.8 Cardiac Index 2.9 - Exam General appearance: Remains intubated no acute distress, obese, - Neck Details: Neck is supple, no JVD, no lymphadenopathy. Tracheostomy tube is midline and intact, sutures in place. - Respiratory Details: Lungs sounds essentially diminished at the left base, Respirations are symmetrical and nonlabored with mechanical ventilator support. - Cardiovascular Details: Pain is tachycardic at regular rate and rhythm seems to be regular. This may be a a flutter with 2 to one block. S1 and S2 present, negative for S3 , gallop or murmur. - Gastrointestinal Gastrointestinal Comment(s): Abdomen is soft, nontender, no megaly, no rebound, PEG tube is intact. - Genitourinary Genitourinary Comment(s): Mason catheter for accurate I&O. Draining clear yellow urine. - Integumentary Integumentary Comment(s): Skin is warm and dry. No clubbing or cyanosis. Both lower extremities are wrapped with Vance bandage. - Neurologic Neurologic Comment(s): Alert and following verbal commands. No gross focal neurologic deficit noted. - Musculoskeletal Musculoskeletal: Present: generalized weakness, strength equal bilaterally - Labs CBC & Chem 7: 01/09/18 05:30 01/09/18 05:30 Labs: Abnormal Lab Results - Last 24 Hours (Table) 01/08/18 01/09/18 01/09/18 Range/Units 18:04 00:53 05:30 WBC (3.8-10.6) k/uL RBC (3.80-5.40) m/uL Hgb (11.4-16.0) gm/dL Hct (34.0-46.0) % MCHC (31.0-37.0) g/dL RDW (11.5-15.5) % PT (9.0-12.0) sec INR (<1.2) ABG pO2 (83-108) mmHg ABG HCO3 (21-25) mmol/L ABG Total CO2 (19-24) mmol/L ABG O2 Saturation (94-97) % Carbon Dioxide 31 H (22-30) mmol/L BUN 41 H (7-17) mg/dL Glucose 103 H (74-99) mg/dL POC Glucose (mg/dL) 111 H 105 H (75-99) mg/dL Calcium 8.3 L (8.4-10.2) mg/dL 01/09/18 01/09/18 01/09/18 Range/Units 05:30 05:30 06:08 WBC 14.2 H (3.8-10.6) k/uL RBC 2.88 L (3.80-5.40) m/uL Hgb 7.8 L (11.4-16.0) gm/dL Hct 25.4 L (34.0-46.0) % MCHC 30.6 L (31.0-37.0) g/dL RDW 21.5 H (11.5-15.5) % PT 26.4 H (9.0-12.0) sec INR 2.9 H (<1.2) ABG pO2 (83-108) mmHg ABG HCO3 (21-25) mmol/L ABG Total CO2 (19-24) mmol/L ABG O2 Saturation (94-97) % Carbon Dioxide (22-30) mmol/L BUN (7-17) mg/dL Glucose (74-99) mg/dL POC Glucose (mg/dL) 123 H (75-99) mg/dL Calcium (8.4-10.2) mg/dL 01/09/18 01/09/18 Range/Units 07:20 12:18 WBC (3.8-10.6) k/uL RBC (3.80-5.40) m/uL Hgb (11.4-16.0) gm/dL Hct (34.0-46.0) % MCHC (31.0-37.0) g/dL RDW (11.5-15.5) % PT (9.0-12.0) sec INR (<1.2) ABG pO2 113 H (83-108) mmHg ABG HCO3 31 H (21-25) mmol/L ABG Total CO2 32 H (19-24) mmol/L ABG O2 Saturation 99.0 H (94-97) % Carbon Dioxide (22-30) mmol/L BUN (7-17) mg/dL Glucose (74-99) mg/dL POC Glucose (mg/dL) 123 H (75-99) mg/dL Calcium (8.4-10.2) mg/dL Assessment and Plan Assessment: Assessment #1 respiratory failure #2 status post open heart and status post CABG and mitral valve replacement #3 persistent atrial flutter #4 congestive heart failure #5 sternal wound infection #6 peripheral vascular disease and known left subclavian stenosis #7 multiple comorbid conditions Plan of care as stated above;continue with anticoagulation therapy and monitor PT/INR; plan for cardioversion if remains tachycardic; pulmonary is managing rent and plan to continue weaning trials. Time with Patient: Greater than 30
[2018-01-09 18:17] LABS: Glucose,Whole Blood 103 mg/dL (75-99)
[2018-01-09] MEDS: ESCITALOPRAM 10 MG TAB PO SCH (20:13)
[2018-01-09] MEDS: SENNOSIDES-DOCUSATE SODIUM 1 EACH TAB PO SCH (20:14)
[2018-01-10 00:10] LABS: Glucose,Whole Blood 92 mg/dL (75-99)
[2018-01-10] MEDS: INSULIN ASPART 100 UNIT/ML 1 ML 10 ML VIAL SQ SCH ×4 (00:43→18:15)
[2018-01-10] MEDS: MEROPENEM 1 GM in SODIUM CHLORIDE 0.9% 100 ML IVPB SCH ×4 (00:43→22:52)
[2018-01-10] MEDS: METOCLOPRAMIDE 5 MG/ML 2 ML VIAL IVP SCH ×5 (00:46→22:52)
[2018-01-10] MEDS: IPRATROPIUM-ALBUTEROL 3 ML NEB INHALATION SCH ×5 (03:53→18:58)
[2018-01-10 04:53] LABS: Anisocytosis Moderate; HCT 25.1 % (34.0-46.0); HGB 7.6 gm/dL (11.4-16.0); Hypochromasia Marked; MCH 26.9 pg (25.0-35.0); MCHC 30.4 g/dL (31.0-37.0); MCV 88.4 fL (80.0-100.0); Mean Platelet Volume 7.9; Platelet Count 275 k/uL (150-450); RBC 2.84 m/uL (3.80-5.40); RDW 21.5 % (11.5-15.5); WBC 12.2 k/uL (3.8-10.6)
[2018-01-10 05:10] LABS: INR 3.6 (<1.2); Prothrombin Time 32.4 sec (9.0-12.0)
[2018-01-10 05:11] LABS: Calcium 8.4 mg/dL (8.4-10.2); Magnesium 2.3 mg/dL (1.6-2.3); Phosphorus 3.4 mg/dL (2.5-4.5); Potassium 4.1 mmol/L (3.5-5.1)
[2018-01-10] MEDS: DILTIAZEM ORAL 60 MG TAB PO SCH ×2 (05:34→13:20)
[2018-01-10 05:42] LABS: Glucose,Whole Blood 102 mg/dL (75-99)
[2018-01-10] MEDS: BUDESONIDE 1 MG/2 ML NEBU INHALATION SCH ×2 (07:12→18:58)
[2018-01-10] MEDS: HYDROcodone/APAP 5-325MG 1 EACH TAB PO PRN ×3 (07:13→22:52)
--- NOTE | 2018-01-10 07:53 | P.PN ---
Subjective Progress Note Date: 01/10/18 Principal diagnosis: Status post open heart This is a pleasant 67-year-old female patient who sees Dr. Crawley as an outpatient who underwent an open heart surgery where she had CABG 1 associated with mitral valve replacement and maze procedure, with a postoperative course was complex and complicated by respiratory failure, chest incision dehiscence, where the patient did have to go to the OR again and have another surgery. Currently the patient is in chronic respiratory failure and she does have a tracheostomy hemodynamically she continues to have atrial flutter with heart rate around 108 beats per minute.The hemoglobin continues to be around 8. The INR today is above 3. I will discuss the case with Dr. Crawley for possible cardioversion Objective - Vital Signs Vital signs: Vital Signs Temp 98.3 F 01/10/18 04:00 Pulse 111 H 01/10/18 07:26 Resp 20 01/10/18 07:13 BP 106/58 01/04/18 08:59 Pulse Ox 98 01/10/18 07:00 Intake & Output 01/09/18 01/10/18 01/10/18 18:59 06:59 18:59 Intake Total 1338 1078 60 Output Total 870 740 30 Balance 468 338 30 Weight 102.8 kg 99.7 kg Intake: IV 480 133 3 Dextrose 5%-0.45% NaCl 1, 0 000 ml @ 10 mls/hr IV . Q24H [facility] Rx#:[id number] Meropenem 1 gm In Sodium 200 100 Chloride 0.9% 100 ml @ 200 mls/hr IVPB Q8HR [facility] Rx#:[id number] Pressure Bag 30 33 3 Vancomycin 1,500 mg In 250 Sodium Chloride 0.9% 250 ml @ 125 mls/hr IVPB Q36H [facility] Rx#:[id number] Tube Feeding 798 855 57 Other 60 90 Output: Drainage 430 280 Right Abdomen 430 280 Urine 440 460 30 Other: Voiding Method Indwelling Catheter Indwelling Catheter ABP, PAP, CO, CI - Last Documented Arterial Blood Pressure 122/62 Pulmonary Artery Pressure 38/33 Cardiac Output 5.8 Cardiac Index 2.9 - Labs CBC & Chem 7: 01/10/18 04:40 01/10/18 04:40 Labs: Abnormal Lab Results - Last 24 Hours (Table) 01/09/18 01/09/18 01/10/18 Range/Units 12:18 18:16 04:40 WBC (3.8-10.6) k/uL RBC (3.80-5.40) m/uL Hgb (11.4-16.0) gm/dL Hct (34.0-46.0) % MCHC (31.0-37.0) g/dL RDW (11.5-15.5) % PT (9.0-12.0) sec INR (<1.2) Carbon Dioxide 31 H (22-30) mmol/L BUN 45 H (7-17) mg/dL Glucose 106 H (74-99) mg/dL POC Glucose (mg/dL) 123 H 103 H (75-99) mg/dL 01/10/18 01/10/18 01/10/18 Range/Units 04:40 04:40 05:41 WBC 12.2 H (3.8-10.6) k/uL RBC 2.84 L (3.80-5.40) m/uL Hgb 7.6 L (11.4-16.0) gm/dL Hct 25.1 L (34.0-46.0) % MCHC 30.4 L (31.0-37.0) g/dL RDW 21.5 H (11.5-15.5) % PT 32.4 H (9.0-12.0) sec INR 3.6 H (<1.2) Carbon Dioxide (22-30) mmol/L BUN (7-17) mg/dL Glucose (74-99) mg/dL POC Glucose (mg/dL) 102 H (75-99) mg/dL Assessment and Plan Assessment: Assessment #1 respiratory failure #2 status post open heart and status post CABG and mitral valve replacement #3 persistent atrial flutter #4 congestive heart failure #5 sternal wound infection #6 peripheral vascular disease and known left subclavian stenosis #7 multiple comorbid conditions Plan #1 possible cardioversion #2 follow-up with the patient.
[2018-01-10] MEDS: PANTOPRAZOLE 40 MG TABLET PO SCH (08:24)
[2018-01-10 08:27] LABS: ABG Base Excess 7.2 mmol/L; ABG HCO3 31 mmol/L (21-25); ABG Oxygen Saturation 99.2 % (94-97); ABG PCO2 42 mmHg (35-45); ABG PH 7.48 (7.35-7.45); ABG PO2 102 mmHg (83-108); ABG TCO2 32 mmol/L (19-24)
--- NOTE | 2018-01-10 08:32 | XR ---
EXAMINATION TYPE: XR chest 1V portable DATE OF EXAM: 01/10/2018 COMPARISON: 01/09/2018 HISTORY: Shortness of breath TECHNIQUE: Single frontal view of the chest is obtained. FINDINGS: Postsurgical changes noted. Central line, tracheostomy tube and NG tube are stable. Bilate ral pleural effusion and consolidation with diffuse interstitial pattern. The heart is enlarged. Vasc ular stent noted overlying the left upper mediastinum. Atherosclerotic change aorta. Question left up per lobe granuloma. . IMPRESSION: Bilateral infiltrate and pleural effusion correlate for CHF.
[2018-01-10] MEDS: LACTOBACILLUS ACIDOPH & BULGAR 1 EACH PACKET PO SCH ×3 (08:42→21:11)
[2018-01-10] MEDS: ASPIRIN 81 MG PO SCH (08:42)
[2018-01-10] MEDS: AMIODARONE 200 MG TAB PO SCH (08:42)
[2018-01-10] MEDS: METOPROLOL TARTRATE 50 MG TAB PEG/G-TUBE SCH ×2 (08:42→21:10)
[2018-01-10] MEDS: ATORVASTATIN 40 MG TAB PO SCH (08:42)
[2018-01-10] MEDS: SILVER sulfADIAZINE Cream 400 GM 1 APPLIC APPLIC TOPICAL SCH ×2 (08:43→21:22)
--- NOTE | 2018-01-10 08:45 | P.PN ---
Subjective Progress Note Date: 01/10/18 Principal diagnosis: Severe mitral regurgitation. Coronary artery disease. Paroxysmal atrial fibrillation on Coumadin for anticoagulation. Recent hospitalization for lower GI bleed, duodenal ulcer. History of left subclavian stenosis with stent placement 2014 with recent discovery of critical re-in-stent stenosis. Previous tobacco dependence with preoperative FEV1 60% of predicted. Hypertension. Hyperlipidemia. Gallbladder disease. Family history of heart disease. Preoperative nasal swab positive for MRSA. Preoperative anemia. POD #46 mitral valve replacement using a 25 mm Ribera bioprosthetic tissue valve. Coronary artery bypass grafting 1, reverse saphenous vein graft to the obtuse marginal artery. Maze procedure. Endoscopic harvesting of the right greater saphenous vein. Epi-aortic ultrasound. Intraoperative transesophageal echocardiogram. Ligation of the left atrial appendage using a 40 mm AtriClip. Intraoperative left ventricular wall tear, an unexpected but potential outcome of surgery Acute blood loss anemia, and expected outcome given patient's preoperative anemia and intraoperative bleeding. Postoperative prolonged mechanical ventilation secondary to hemodynamic instability, and unexpected but potential outcome of surgery given the extensive nature of her perioperative course. POD #17 placement of a #8 Shiley nonfenestrated tracheostomy tube. Sternal incision dehiscence, a possible outcome of surgery given patient's obesity, nutrition status, debility POD #18 right rectus abdominous muscle flap closure, open sternal wound. Closure of sternal wound and muscle flap with skin graft substitute, 238 cm. Implantation of reconstructive graft for closure of abdominal wall wound, [address] Krause POD #31 sternal wound debridement with placement of wound VAC. Postoperative left lower lobe collapse secondary to mucous plugging, and unexpected but potential outcome of surgery. Bronchial washings positive for Rachana species. POD #26 bronchoscopy and bronchoalveolar lavage of the left lower lobe and extraction of mucous plug. Postoperative ileus, an unexpected but potential outcome of surgery. POD #5 placement of percutaneous endoscopic gastrostomy tube. The patient's currently sitting up in bed in no acute distress. Does complain of some mild pain around the PEG tube site. Still in rapid A. flutter but heart rate is improving. INR level is therapeutic today, will discuss with Dr. Crawley for timing of cardioversion. Objective - Vital Signs Vital signs: Vital Signs Temp 98.3 F 01/10/18 04:00 Pulse 111 H 01/10/18 07:26 Resp 20 01/10/18 07:13 BP 106/58 01/04/18 08:59 Pulse Ox 98 01/10/18 07:00 Intake & Output 01/09/18 01/10/18 01/10/18 18:59 06:59 18:59 Intake Total 1338 1078 60 Output Total 870 740 30 Balance 468 338 30 Weight 102.8 kg 99.7 kg Intake: IV 480 133 3 Dextrose 5%-0.45% NaCl 1, 0 000 ml @ 10 mls/hr IV . Q24H [facility]LEE Rx#:[id number] Meropenem 1 gm In Sodium 200 100 Chloride 0.9% 100 ml @ 200 mls/hr IVPB Q8HR [facility] Rx#:[id number] Pressure Bag 30 33 3 Vancomycin 1,500 mg In 250 Sodium Chloride 0.9% 250 ml @ 125 mls/hr IVPB Q36H [facility] Rx#:[id number] Tube Feeding 798 855 57 Other 60 90 Output: Drainage 430 280 Right Abdomen 430 280 Urine 440 460 30 Other: Voiding Method Indwelling Catheter Indwelling Catheter ABP, PAP, CO, CI - Last Documented Arterial Blood Pressure 122/62 Pulmonary Artery Pressure 38/33 Cardiac Output 5.8 Cardiac Index 2.9 - Constitutional General appearance: Present: cooperative, no acute distress, obese - Respiratory Details: Lung sounds and is bilaterally. Respirations even, nonlabored. Currently on mechanical ventilation with oxygen saturation 98%. Ventilator settings assist control mode, FiO2 35%, tidal volume 400, respiratory rate 20, PEEP 5. #8 Shiley tracheostomy present. - Cardiovascular Details: S1, S2 present. Regular, tachycardic rate and rhythm, rapid atrial flutter on telemetry. Open chest with wound VAC in place. Palpable peripheral pulses bilaterally. Bilateral lower extremity edema present, mostly feet and thigh area. No calf pain or tenderness noted. Antiembolism stockings, SCDs present. Right axillary arterial line, left brachial PICC line present. - Gastrointestinal Gastrointestinal Comment(s): Abdomen soft, nontender, nondistended, obese, no tympany noted. Active bowel sounds 4 quadrants. PEG tube present to left upper quadrant, tube feeding infusing at 57 mL per hour and patient tolerating well. Last bowel movement yesterday. - Genitourinary Genitourinary Comment(s): Mason present draining clear, yellow urine. Output 30-50 mL/h overnight. - Integumentary Integumentary Comment(s): Skin is warm and dry. Anterior chest open with wound VAC in place. Abdominal incision clean, dry with intact maya, right lower quadrant HENRI drain present, drainage 260 mL in the last 8 hours. Head with small area of eschar occipitally , no drainage present. Sacral area with pressure ulcer, local wound care. Pressure wound present underneath tracheostomy, covered with DuoDERM. - Neurologic Neurologic: Present: CNII-XII intact - Musculoskeletal Musculoskeletal: Present: generalized weakness, strength equal bilaterally - Psychiatric Psychiatric: Present: A&O x's 3, appropriate affect, intact judgment & insight - Allied health notes Allied health notes reviewed: nursing - Labs CBC & Chem 7: 01/10/18 04:40 01/10/18 04:40 Labs: Abnormal Lab Results - Last 24 Hours (Table) 01/09/18 01/09/18 01/10/18 Range/Units 12:18 18:16 04:40 WBC (3.8-10.6) k/uL RBC (3.80-5.40) m/uL Hgb (11.4-16.0) gm/dL Hct (34.0-46.0) % MCHC (31.0-37.0) g/dL RDW (11.5-15.5) % PT (9.0-12.0) sec INR (<1.2) Carbon Dioxide 31 H (22-30) mmol/L BUN 45 H (7-17) mg/dL Glucose 106 H (74-99) mg/dL POC Glucose (mg/dL) 123 H 103 H (75-99) mg/dL 01/10/18 01/10/18 01/10/18 Range/Units 04:40 04:40 05:41 WBC 12.2 H (3.8-10.6) k/uL RBC 2.84 L (3.80-5.40) m/uL Hgb 7.6 L (11.4-16.0) gm/dL Hct 25.1 L (34.0-46.0) % MCHC 30.4 L (31.0-37.0) g/dL RDW 21.5 H (11.5-15.5) % PT 32.4 H (9.0-12.0) sec INR 3.6 H (<1.2) Carbon Dioxide (22-30) mmol/L BUN (7-17) mg/dL Glucose (74-99) mg/dL POC Glucose (mg/dL) 102 H (75-99) mg/dL - Imaging and Cardiology Chest x-ray: image reviewed Assessment and Plan (1) Acute blood loss anemia Current Visit: Yes Status: Acute Code(s): D62 - ACUTE POSTHEMORRHAGIC ANEMIA SNOMED Code(s): 549778964 (2) CAD (coronary artery disease) Current Visit: Yes Status: Chronic Code(s): I25.10 - ATHSCL HEART DISEASE OF [place] CORONARY ARTERY W/O ANG PCTRS SNOMED Code(s): 99863847 (3) Hyperlipidemia Current Visit: Yes Status: Chronic Code(s): E78.5 - HYPERLIPIDEMIA, UNSPECIFIED SNOMED Code(s): 42415638 (4) Hypertension Current Visit: Yes Status: Chronic Code(s): I10 - ESSENTIAL (PRIMARY) HYPERTENSION SNOMED Code(s): 55300473 (5) Severe mitral regurgitation Current Visit: Yes Status: Chronic Code(s): I34.0 - NONRHEUMATIC MITRAL ( VALVE) INSUFFICIENCY SNOMED Code(s): 83278772 (6) Stenosis of left subclavian artery Current Visit: Yes Status: Chronic Code(s): I77.1 - STRICTURE OF ARTERY SNOMED Code(s): 06990199244502688 (7) Paroxysmal atrial fibrillation Current Visit: No Status: Resolved Code(s): I48.0 - PAROXYSMAL ATRIAL FIBRILLATION SNOMED Code(s): 576147661 (8) History of GI bleed Current Visit: No Status: Resolved Code(s): Z87.19 - PERSONAL HISTORY OF OTHER DISEASES OF THE DIGESTIVE SYSTEM SNOMED Code(s): 160476135 (9) Family history of coronary artery disease Current Visit: Yes Status: Chronic Code(s): Z82.49 - FAMILY HX OF ISCHEM HEART DIS AND OTH DIS OF THE CIRC SYS SNOMED Code(s): 015172769 (10) Ileus, postoperative Current Visit: Yes Status: Acute Code(s): K91.89 - OTH POSTPROCEDURAL COMPLICATIONS AND DISORDERS OF DGSTV SYS; K56.7 - ILEUS, UNSPECIFIED SNOMED Code(s): 082437143 (11) Pressure ulcer of contiguous region involving back and buttock, stage 3 Current Visit: Yes Status: Acute Code(s): L89.43 - PRESSR ULCER OF CONTIG SITE OF BACK, BUTTOCK AND HIP, STG 3 SNOMED Code(s): 860081100 (12) Sternal wound dehiscence Current Visit: Yes Status: Acute Code(s): T81.32XA - DISRUPTION OF INTERNAL OPERATION (SURGICAL) WOUND, NEC, INIT SNOMED Code(s): 96022485 Plan: 1. Continue baby aspirin, statin, beta krunal. 2. Continue amiodarone for atrial fibrillation prophylaxis. No further IV amiodarone. 3. Continue Cardizem for rate control. 4. Ventilator management per pulmonology. Wean as tolerated. 5. Coumadin therapy based on daily PT/INR. No Coumadin today. INR 3.6. Goal range 2.2-2.5. Will discuss cardioversion timing with Dr. Crawley today. 6. Continue meropenem, Vanco per Dr. Olivera until 01/21/2018. 7. Will monitor labs, chest x-rays. 8. Bronchodilators per pulmonology. 9. GI/DVT prophylaxis. 10. Increase activity. PT/OT/cardiac rehab following. 11. Keep abdominal drain until output is less then 30 mL in [address] Krause. 12. Keep Mason for strict accurate intake and output. Change out every 7 days. 13. Wound VAC to be changed on Wednesday, Wednesday, and Wednesday by nurse practitioner. Will change today. 14. Local wound care to back of head and lower back. Silvadene for left upper thigh skin tear. DuoDERM dressing to pressure area under tracheostomy site. 15. More recommendations as patient progresses. Anticipate discharge to select specialty this week. Time with Patient: Greater than 30
--- NOTE | 2018-01-10 09:28 | P.PN ---
Subjective Progress Note Date: 01/10/18 Principal diagnosis: Status post one-vessel bypass grafting and mitral valve replacement Progress note dated 11/29/2017 This is a 67-year-old female status post one-vessel bypass grafting and mitral valve replacement. She apparently had surgery on the . Today is postop day #3. The patient currently remains on the mechanical ventilator. Her vent settings are the assist control mode rate of 1210 of I am is 550 FiO2 50% PEEP of 5. Arterial blood gases show a PaO2 of 135 a PaCO2 of 36 and a pH of 7.47. I'm to make a few changes including bumping the rate up from 12 to 20, and decreasing the tidal volume from 550 down to 400, and dropping the FiO2 from 50- 40%. The patient may not be weaned of old low because she remains on insulin drip at 1 unit per hour, Primacor 0.2 mics per kilogram per minute, norepinephrine at 2 mics per minute, half normal saline at 30 mL an hour and propofol at 25 g kilogram per minute. Chest x-rays consistent with fluid overload but bibasilar infiltrates and small effusions and microbiology is negative. The rest of the labs medications and x-rays are all reviewed. Progress note dated 11/30/2017 This is a 67-year-old female status post one-vessel bypass grafting and mitral valve replacement. She had surgery on the . She is postop day #4. She remains on mechanical ventilator. Yesterday, her chest x-ray showed evidence of fluid overload. She did get some diuretics. Today's chest x-ray still shows evidence of fluid overload although it might be slightly improved. She's currently still on the mechanical ventilator on the assist control mode, rate of 26, tidal volume 400, PEEP of 8, FiO2 40%. The patient's arterial blood gases show a PaO2 of 94 and pH 7.46 in a PaCO2 of 41. The patient will get a daily eruption of sedation and a spontaneous breathing trial. The patient remains on norepinephrine at 3 mcg/m, propofol at 30 mics per kilogram per minute, Primacor 0.2 mics per kilogram per minute, half normal saline IV at 15 mL an hour and vital 1.2 at 60 with a goal of 60 mL an hour. The patient failed her spontaneous breathing trial yesterday very quickly, and afterwards, she became dyssynchronous with the ventilator and I had to bump up the PEEP level to 8 and increase her respiratory rate to 26. We also dropped the tidal volume down to 400. She is much more in synchrony today. Progress note dated 12/01/2017 This is a 67-year-old female who is postop day #5, status post one-vessel bypass grafting and mitral valve replacement. She also has a history of postoperative respiratory failure with failure to wean. She was extubated yesterday though. Chest x-ray has evidence of fluid overload which actually is improved. In addition, the patient had acute blood loss anemia requiring blood transfusion postsurgically, hypertension severe mitral regurgitation left subclavian stenosis paroxysmal atrial fibrillation GI bleed and obesity. Yesterday, post extubation we gave the patient 1 shot of Solu-Medrol 60 mg IV push and also put her on BiPAP at 14/5 and 40%. Chest x-ray does show improvement. Today her hemoglobin is below 7 and she'll receive 1 unit of blood followed by some Lasix IV. In addition, I may add on some IV site Medrol and a smaller dose than normal and also some Pulmicort 1 mg twice a day. Progress note dated 12/02/2017 67-year-old female who is postop day #6 status post single-vessel bypass grafting and mitral valve replacement. The patient has been doing very well the last day and a half to 2 days. She has a history of postoperative respiratory failure and initially, failure to wean. She was extubated 2 days ago. She has had to use of BiPAP on and off since that time. She did receive 1 unit of PRBCs yesterday followed by some Lasix 40 mg IV push. Her chest x- ray my opinion still so-so some fluid overload with a small pool of pleural effusion. Other than that, the patient seemed be doing relatively well. She has a history of hypertension severe mitral regurgitation blood loss anemia following surgery left subclavian stenosis paroxysmal atrial fibrillation GI bleed and obesity. This morning, she'll come off the BiPAP and go back to nasal O2. She prefers a nasal O2 over the BiPAP device. She may have had an episode of aspiration last night. Speech pathology was consulted. In addition , I did check for a DVT in the right upper extremity and the Doppler was negative. Progress note dated 12/03/2017 67-year-old female postop day #7, status post single-vessel bypass grafting and mitral valve replacement. The patient has been doing relatively well although this morning she was a bit more short of breath. Chest x-ray does show some fluid overload. She's been on and off of BiPAP. This morning she was on O2 nasal cannula at 3 L. The cardiothoracic practitioner thought she was a bit more short of breath I went and saw her. I looked at her chest x-ray. We asked her to go back on BiPAP at 14 and 5 and 40% and we also gave her Lasix 60 mg IV push. She seemed be doing a lot better now. She's not receiving any IV fluids. Chest x-ray does show fluid overload. Again the Lasix was given this morning. She was a bit to This morning. Breathing about 25 times a minute. No swapnil distress. In addition, she has a history of hypertension severe mitral regurgitation blood loss anemia following her open heart surgery, left subclavian artery stenosis paroxysmal atrial fibrillation GI bleed and obesity. Progress note dated 12/04/2017 67-year-old female, postop day #8, status post single-vessel bypass grafting and mitral valve replacement. The patient's overall situation is been reasonable. She seemed to do do better while she is on BiPAP therapy. When she is a bit more short of breath, she does poorly when she's not on BiPAP. Chest x-ray shows some fluid overload. She has some cephalization to the upper lobes. In addition, she is either consolidation atelectasis or infiltrates in the lower lobes. In addition, probably has some pleural effusions bilaterally. Currently she is on 7 L high flow. She's not receiving any IV fluids. When she is on BiPAP, she is on settings of 14 and 5 and 40%. She did receive some Lopressor for atrial fibrillation with RVR. Cardiothoracic surgery ask about antibiotics for possible pneumonia. Is not unreasonable to add some antibiotics to her regimen. She may have some pneumonia hiding in the lung spaces bilaterally. She isn't producing any phlegm. There's been no fever or chills. Other than that, she is doing reasonably well. Labs x-rays a medications are all reviewed. Progress note dated 12/20/2017 This is a 67-year-old female here in the hospital since November 25. The patient had a one-vessel bypass on the any mitral valve repair/replacement as well as a modified maze procedure on the . She was initially extubated on November 30 of BiPAP. When I left her last, which was on December 04, she was postop day #8 status post bypass grafting and mitral valve replacement. She seemed to do pretty well at that time on BiPAP therapy. Since that time, she's had a cardioversion on December 07 a dehiscence of her sternal wound on December 08 and a sister neck to me on December 10. She currently remains intubated. She has been on PSV 10 CPAP and yesterday she spent 10-12 hours on the settings. She apparently is going for a flap repair on December 21 which is tomorrow. She's getting saline IV at KVO and vital high protein at 40. Her vent settings include the assist control mode rate of 14 tidal volume 500 FiO2 40% PEEP of 5. Arterial blood gases show a PaO2 of 108 a PaCO2 of 45 and a pH of 7.47. I'm inclined not to wean her today given the fact that she'll be going for a flap repair tomorrow. In addition, her respiratory rates a bit high in her heart rate is high. We will go do a daily interruption of sedation and attempt a spontaneous breathing trial. Progress note dated 12/21/2017 This is a 67-year-old female here in the hospital since every . The patient had a one-vessel bypass on the and mitral valve replacement. She also had a modified maze procedure on the same day. She was initially extubated on eic 2 BiPAP. When I left her last, she was doing recently well on and off of BiPAP. Currently, the patient is going to the operating room today for a flap repair to be done by the plastic surgeon. The patient had a cardioversion on December 07, a dehiscence of her sternal incision on December 08, and a sternectomy on December 10. Currently, she is on the assist control mode with a tidal volume 500, a rate of 14, and FiO2 of 40% to be reduced down to 30%, and a PEEP of 5. Arterial blood gases show a PaO2 of 148, a PaCO2 of 36 and a pH of 7.49. The patient's on a saline IV at 20 mL an hour, propofol at 30 mics per kilogram per minute tube feeds which are on hold for the surgery. Again she is going to have a flap repair today. Chest x-ray shows similar changes to yesterday. Progress note dated 12/22/2017 67-year-old female who's been in the hospital since November 25. The patient had a one-vessel bypass grafting on the and mitral valve replacement. She also had a modified maze procedure on the same day. She was initially extubated on November 30 to BiPAP. The patient had also to complications after I saw her last including on the need for cardioversion on December 07, dehiscence of her sternal incision on December 08, and sternectomy on December 10. Yesterday, she had a flap repair done by one of the plastic surgeons. She is postop day #1 for that. This morning she was on the assist control mode rate of 14, tidal volume 500, FiO2 30%, and PEEP of 5. Her arterial blood gases show a PaO2 of 95 a PaCO2 of 39 and a pH of 7.49. At that time the patient was on propofol at 25 mcg/m, a saline IV at KVO and vital high protein at a rate of 30 with a goal of 40. The patient looks great today and we went ahead and extubated her to BiPAP. She is on 10 and 5 and 40%. Seemed be doing relatively well with that at the current time. Progress note dated 12/26/2017 67-year-old female who's been in the hospital since November 25. The patient had a one-vessel bypass grafting on the and a mitral valve replacement on that same day. She also had a modified maze procedure on the same day. She was initially extubated on November 30 to BiPAP. The patient was extubated again on December 22 reintubated on the and had a tracheostomy tube placed on December 24. In addition, she had a cardioversion on December 07 a wound dehiscence on December 08 and a sternectomy on December 10. She is status post flap repair postop day #5. Yesterday, she spent a fair amount of time on pressure support of 10 and CPAP of 5. Currently, she is on the ventilator. Her vent settings include the assist control mode with a rate of 20 tidal volume 400 FiO2 35% PEEP of 5. Arterial blood gases show a PaO2 of 107 a PaCO2 47 and a pH of 7.43. Her IV is dextrose at KVO. She's not getting any propofol. A Dobbhoff tube was placed 2 days ago and she's getting tube feeds through that. She is getting vital high protein at a rate of 40. Goal rate is yet to be calculated. Chest x-ray shows mild diffuse bilateral infiltrates. All in all, she has improved. Prognosis remains guarded still. Progress note dated 01/10/2018 67-year-old female who I last on December 26. She was admitted back on November 25 at which time she had a single-vessel bypass grafting and mitral valve repair. She's had a number of different complications. She also underwent a modified maze procedure on the same day. She was initially extubated on November 30 to BiPAP. She was extubated again on December 22 reintubated on the . On the , she had a tracheostomy tube placed. In addition, she had a cardioversion on December 07 of wound dehiscence on December 08 and a sternectomy on December 10. She is also status post flap repair. The patient does have a PEG tube in place as well done by one of the other cardiothoracic surgeons. The patient's currently still on the ventilator. She is on the assist control mode with a rate of 28 tidal volume 400 FiO2 35% and PEEP of 5. Up to the blood gases show a PaO2 of 102 a pCO2 42 and a pH of 7.47. She remains on vital high protein at a rate of 57 with a goal of 57 mL/h. Chest x-ray shows some mild fluid overload. The plan was to wait for her to be anticoagulated and then do a cardioversion on her. Hopefully that'll be done today or tomorrow. Subsequent to that, transfer to select specialty. Objective - Vital Signs Vital signs: Vital Signs Temp 97.9 F 01/10/18 08:00 Pulse 112 H 01/10/18 09:00 Resp 20 01/10/18 09:00 BP 106/58 01/04/18 08:59 Pulse Ox 98 01/10/18 09:00 Intake & Output 01/09/18 01/10/18 01/10/18 18:59 06:59 18:59 Intake Total 1338 1078 213 Output Total 870 740 308 Balance 468 338 -95 Weight 102.8 kg 99.7 kg Intake: IV 480 133 9 Dextrose 5%-0.45% NaCl 1, 0 000 ml @ 10 mls/hr IV . Q24H [facility] Rx#:[id number] Meropenem 1 gm In Sodium 200 100 Chloride 0.9% 100 ml @ 200 mls/hr IVPB Q8HR [facility] Rx#:[id number] Pressure Bag 30 33 9 Vancomycin 1,500 mg In 250 Sodium Chloride 0.9% 250 ml @ 125 mls/hr IVPB Q36H [facility] Rx#:[id number] Tube Feeding 798 855 114 Other 60 90 90 Output: Drainage 430 280 135 Right Abdomen 430 280 135 Urine 440 460 173 Other: Voiding Method Indwelling Catheter Indwelling Catheter ABP, PAP, CO, CI - Last Documented Arterial Blood Pressure 99/58 Pulmonary Artery Pressure 38/33 Cardiac Output 5.8 Cardiac Index 2.9 - Exam No acute distress, The patient's currently on the ventilator. She is awake and alert. HEENT examination is grossly unremarkable. Mucous membranes are moist. No oral lesions. Neck supple. Full range of motion. No adenopathy thyromegaly or neck vein distention. There is a midline tracheostomy. Cardiovascular examination reveals regular rhythm rate. S1-S2 normal. No S3 or S4. No discernible murmur noted. Lungs reveal very coarse bilateral breath sounds. Her sounds are equal bilaterally. No wheezes. A few scattered crackles. Abdomen soft bowel sounds are heard. No masses or tenderness. The PEG tube is noted. Extremities are intact. No cyanosis or clubbing. There is slight edema. Skin is without rash or lesion. Neurologic examination is difficult to assess, but she is awake and alert - Labs CBC & Chem 7: 01/10/18 04:40 01/10/18 04:40 Labs: Abnormal Lab Results - Last 24 Hours (Table) 01/09/18 01/09/18 01/10/18 Range/Units 12:18 18:16 04:40 WBC (3.8-10.6) k/uL RBC (3.80-5.40) m/uL Hgb (11.4-16.0) gm/dL Hct (34.0-46.0) % MCHC (31.0-37.0) g/dL RDW (11.5-15.5) % PT (9.0-12.0) sec INR (<1.2) ABG pH (7.35-7.45) ABG HCO3 (21-25) mmol/L ABG Total CO2 (19-24) mmol/L ABG O2 Saturation (94-97) % Carbon Dioxide 31 H (22-30) mmol/L BUN 45 H (7-17) mg/dL Glucose 106 H (74-99) mg/dL POC Glucose (mg/dL) 123 H 103 H (75-99) mg/dL 01/10/18 01/10/18 01/10/18 Range/Units 04:40 04:40 05:41 WBC 12.2 H (3.8-10.6) k/uL RBC 2.84 L (3.80-5.40) m/uL Hgb 7.6 L (11.4-16.0) gm/dL Hct 25.1 L (34.0-46.0) % MCHC 30.4 L (31.0-37.0) g/dL RDW 21.5 H (11.5-15.5) % PT 32.4 H (9.0-12.0) sec INR 3.6 H (<1.2) ABG pH (7.35-7.45) ABG HCO3 (21-25) mmol/L ABG Total CO2 (19-24) mmol/L ABG O2 Saturation (94-97) % Carbon Dioxide (22-30) mmol/L BUN (7-17) mg/dL Glucose (74-99) mg/dL POC Glucose (mg/dL) 102 H (75-99) mg/dL 01/10/18 Range/Units 08:25 WBC (3.8-10.6) k/uL RBC (3.80-5.40) m/uL Hgb (11.4-16.0) gm/dL Hct (34.0-46.0) % MCHC (31.0-37.0) g/dL RDW (11.5-15.5) % PT (9.0-12.0) sec INR (<1.2) ABG pH 7.48 H (7.35-7.45) ABG HCO3 31 H (21-25) mmol/L ABG Total CO2 32 H (19-24) mmol/L ABG O2 Saturation 99.2 H (94-97) % Carbon Dioxide (22-30) mmol/L BUN (7-17) mg/dL Glucose (74-99) mg/dL POC Glucose (mg/dL) (75-99) mg/dL Microbiology - Last 24 Hours (Table) 12/10/17 10:40 Fungal Culture - Final Chest 12/10/17 10:45 Fungal Culture - Final Chest Assessment and Plan Assessment: Assessment Status post one-vessel bypass grafting and mitral valve replacement Postoperative respiratory failure with failure to wean, with extubation occurring on 11/30/2017, and subsequent extubation on 12/22/2017. She was reintubated on December 23, and had a tracheostomy performed on 12/24/2017 Status post cardioversion on December 07 Status post wound dehiscence on December 08 Status post sternectomy on December 10 Status post , flap repair on 12/21/2017 Reintubation and mechanical ventilation with failure to wean Chest x-ray evidence of fluid overload Acute blood loss anemia requiring blood transfusion History of hypertension History of severe mitral regurgitation History of left subclavian stenosis Paroxysmal atrial fibrillation History of GI bleed Obesity Possible aspiration with aspiration pneumonia Plan: Plan dated 11/29/2017 I will make some vent changes today including repeat increasing the rate from 12 -20, dropping the time of I'm down from 550 mL down to 400 mL and also reducing the FiO2 40%. We'll see if we can wean her off the norepinephrine holding propofol and do a daily eruption of sedation to evaluate for spontaneous breathing trial. Microbiology is negative. Labs x-rays and medications all reviewed. Prognosis is guarded. Additional recommendations and suggestions are forthcoming. I believe she would benefit from some diuretics. Blood gases are reviewed. Plan dated 11/30/2017 The patient will again have a daily eruption of sedation with a spontaneous breathing trial. She still remains on a number of different IV medications including norepinephrine, fall, Primacor. Arterial blood gases today are very reasonable. Her vent settings were adjusted yesterday. She's getting nourishment. We'll continue to follow closely. Labs x-rays a medications are reviewed. Hopeful improvement in the next day or so and eventual extubation. Plan dated 11/23/2017 The patient seems to be doing a bit better. Her chest x-ray certainly improved. She'll receive 1 unit of blood. She feels better. She still on BiPAP. She has significant edema throughout. Chest x-ray is improved. I do agree with 1 unit of blood followed by Salma. We'll continue to follow closely. Medications x-rays and labs are reviewed. Plan dated 12/02/2017 The patient will come off the BiPAP morning go back on nasal O2. Speech pathology was consulted. Chest x-ray looks about the same or slightly better. Still showing a bit of fluid overload. In addition, a Doppler of the right upper extremity was negative for DVT. The patient otherwise seems be doing reasonably well. We'll continue to follow. She is on Primacor and 0.2 mics per kilogram per minute and a half normal saline IV at KVO. BiPAP settings are 14/5 and 40%. Critical care time 34 minutes The patient is doing better after the BiPAP was placed on her. The patient also received Lasix 60 mg IV push. The patient's chest x-ray labs and medications are all reviewed. She's not receiving any additional fluid. We'll continue to follow. Prognosis is guarded. Critical care time 34 minutes. Plan dated 12/04/2017 The patient seemed be doing about the same as she was yesterday. Chest x-ray, in my opinion still shows evidence of fluid overload. She has cephalization and bilateral pleural effusions. Is a possibility she could have pneumonia. She's not producing any phlegm. She's been afebrile. I will add some Zosyn to her regimen. It certainly empiric. She should spend some time on BiPAP as well as a nasal O2. She seemed to do better on the BiPAP at 14 and 5 and 40%. She did have to receive some Lopressor for atrial fibrillation and RVR. I'm sure that's contributing to her shortness of breath as well. She does not have a lot of reserve. Prognosis is guarded. Plan dated 12/20/2017 I'm sorry to see that the patient still here in the ICU. It appears the patient 's had a number of different complications since I saw her last on December 04 including but not limited to cardioversion sternal dehiscence neck to me and anticipated flat repair tomorrow. The patient will be given a daily eruption of sedation and a spontaneous breathing trial. I'm not hopeful given her chronic illness for the current time. Additional recommendations and suggestions are forthcoming. In my opinion, we'll need a tracheostomy. We'll continue to follow. Prognosis is guarded. Meds labs and x-rays are all reviewed. Critical care time 31 minutes Plan dated 12/21/2017 The patient down is going to go to the operating room today for a flap repair by the plastic surgeon. No weaning today. Overall prognosis remains guarded. Labs x-rays a medications are all reviewed. We will continue to follow the patient and provide full supportive care with hopeful full recovery. Critical care time 30 minutes Plan dated 12/22/2017 The patient seemed be doing relatively well. Her weaning parameters were reasonably good. She passed her cuff leak. We went ahead and extubated her to BiPAP at 10 and 5 and 40%. We'll continue to watch her carefully. Her chest x- ray looked improved. There was small effusions bilaterally. We'll continue to follow. Prognosis is guarded. Critical care time is 33 minutes Plan dated 12/26/2017 The patient be placed back on PSV and CPAP at 10 and 5 respectively. She is on 35%. PaO2 is excellent. The patient's getting nourishment with a vital high protein. Were using the Dobbhoff tube for that. Blood gases are good. We'll continue to follow. General clinical status is improved. No additional recommendations are made. Labs x-rays a medications are reviewed. Prognosis is guarded. Critical care time 33 minutes. Plan dated 01/10/2018 The patient remains on the ventilator. The plan is to go ahead and do a cardioversion on her. That will take place either later today or tomorrow. She is currently properly anticoagulated. In addition, the plan at that point will be to transfer her to select specialty. Apparently regularly in his have been made. Since I saw her last, the Dobbhoff tube has been removed and a PEG tube was placed. I've spoken to the family and also the cardiothoracic surgery about her. Additional recommendations and suggestions are forthcoming. Prognosis is guarded. Critical care time 34 minutes Time with Patient: Greater than 30
[2018-01-10 10:37] VITALS: BMI 37.7
[2018-01-10 12:24] VITALS: BP 114/78
[2018-01-10 12:25] LABS: Glucose,Whole Blood 103 mg/dL (75-99)
[2018-01-10] MEDS ORDERED: PROPOFOL 10 MG/ML 20 ML VIAL IV ONE (14:54)
--- NOTE | 2018-01-10 15:27 | P.PCN ---
Preoperative Diagnosis: Procedure Electrical cardioversion for atrial fibrillation/atrial tachycardia Indication for procedure atrial tachycardia with RVR, drug refractory Procedure Successful electrical cardioversion, creatinine 60 J biphasic synchronized shock to sinus rhythm Heart rate in the 80s normal HI Suggest Stop Cardizem/diltiazem but continue metoprolol 100 mg twice daily Reduce amiodarone to 100 mg by mouth daily Anesthesia: MAC Condition: stable Disposition: ICU
[2018-01-10 18:11] LABS: Glucose,Whole Blood 99 mg/dL (75-99)
[2018-01-10] MEDS: VANCOMYCIN 1,500 MG in SODIUM CHLORIDE 0.9% 250 ML IVPB SCH (21:09)
[2018-01-10] MEDS: ESCITALOPRAM 10 MG TAB PO SCH (21:10)
[2018-01-10] MEDS: SENNOSIDES-DOCUSATE SODIUM 1 EACH TAB PO SCH (21:11)
--- NOTE | 2018-01-10 22:27 | P.PN ---
Subjective Progress Note Date: 01/10/18 Principal diagnosis: Sternal wound dehiscence Pleasant 67-year-old female who has an extensive past medical history who is now 14 days postoperative from her open heart procedure it which point in time a mitral valve placement occurred, reverse saphenous vein coronary artery bypass grafting 1 to obtuse marginal, Maze procedure and ligation of the left atrial appendage all occurred interoperatively left ventricular wall tear occurred and was repaired. The patient has a known history of multiple medical troubles before her surgery that included her obesity, COPD and marked deconditioning. Patient has had difficulties recently that included urinary tract infection with E. coli and Serratia and has been treated with intravenous antibiotic therapy with Zosyn. She was having some improvement but then developed dehiscence of her sternal wound and there are plans for surgical debridement tomorrow wound culture showing gram-negative bacilli and with at the infectious diseases consultation was requested. The patient continues to have significant respiratory difficulties and is currently on BiPAP for support. Postoperatively the patient was hemodynamically unstable which made even turning of the patient not possible which has resulted in unavoidable areas of skin breakdown, that are now treatable given her improvement 12/10/2017 reveals the patient to be postoperative from the sternal wound debridement. The surgical note as well as discussion with the surgical team reveals evidence of poor bone quality and all of the sternal wires had pulled through her bony areas. Negative pressure therapy is in place. She is tolerating this well. Plastic surgery consult has been requested for reconstruction of her chest in the near future. Gram-negative bacilli growing from the sternal wound. She is quite comfortable after procedure, chest tube was placed of the left cavity and this is improved some left lung function and she seems less short of breath. The daughter is present and her questions were answered. 12/11/2017 reveals the patient to have had some respiratory distress today and is back on BiPAP at this time. She relates that her pain is under much significant control. Been no other new acute complaints are being made. 12/13/2017 the patient remains in the ICU she is currently on BiPAP but relates that she is quite comfortable. We will work with the nursing staff to change her VAC dressing at this time. await the plastic surgery timeline. 12/15/2017 reveals the patient to remain in intensive care unit, her status has worsened and that she developed flash pulmonary edema and respiratory failure requiring reintubation sedation mechanical ventilation. She underwent bronchoscopy today for removal of mucous plugs and to help with the collapsed left lower lobe. The patient has require some vasopressor support but is more stable this afternoon than earlier. She is sedated and comfortable. She has significant decline of hemoglobin is 7.6. Anticoagulation was held. Is being closely monitored by surgery and they await the plastic surgery intervention. 12/16/2017 cases briefly discussed with the cardiothoracic nurse practitioner in that the wound VAC is being changed today. It is unchanged with no difficulties. No further bleeding is noted. Plastic surgery evaluation apparently will occur tomorrow so the surgical plan can be devised. 12/20/2017 since last visit current thoracic has again change the wound VAC without difficulties. She tolerated it well. She remains on the ventilator at this point in time, does not appear to have any plans for weaning because she will have her plastic closure over open chest tomorrow. She's been hemodynamically stable with intermittent atrial flutter. No significant changes of oxygen requirements, drainage from the wound VAC is minimal as is drainage from her chest tube. 12/21/2017 patient is status post the partial plastic closure of her sternal wound. Complete cardiac coverage occurred but only partial closure was possible. Oxygen requirements are improving postoperative and is being closely watched for any further blood loss anemia. 12/23/2017 reveals the patient to be extubated on BiPAP. She is comfortable with her pain level is about a 2. Shortness of breath is not severe. She is unable to eat and a Dobbhoff will be placed a bit later today to help her with nutritional status to help her recovery. The current situation is discussed with the cardiothoracic surgeon team 12/24/2017 reveals evidence of the changes status in that she has now had a tracheostomy applied due to her chronic respiratory failure. Cardiothoracic surgery has changed the dressing today. Patient is comfortable after her surgery. Denies new acute discomforts. 12/25/2017 reveals that the patient is doing well with her tracheostomy. She is on 35% FiO2 with excellent saturations. The patient relates that she is comfortable her pain level is no more than a 4. She is receiving feedings via the Dobbhoff is tolerating that well but is having a few soft stools without swapnil diarrhea. 12/27/2017 patient remained stable after tracheostomy. With pain level is no more than a 2 at this point in time. Feedings via the Dobbhoff are going well. The wound VAC dressing was changed today without difficulties. Leukocytosis is improving. No hypotension. 12/28/2017. Overall the patient has been stable and that her pulmonary status without acute change. Doing well with the tracheostomy. Patient however developed significant abdominal distention with a tympanic abdomen. Abdominal x -ray revealed evidence of ileus. She's been seen by general surgery and they will determine if she needs an NG tube based on x-rays. She apparently is more comfortable this evening that she was earlier in the day. Nursing staff relates no fevers. 12/29/2017 patient is stable. Not having new acute difficulties. Is noted did have a pressure ulceration to the posterior aspect of the scalp that is being treated with a fall offloading cushion. Patient is actually quite comfortable today. Her ileus is starting to improve. Surgery he has no plans for surgical intervention into the abdomen. Is tolerating TPN. 12/30/2017 the patient is stable. She is doing well with her physical therapy and her antibiotic therapy for the sternal wound dehiscence. Ileus is improving and tolerating her TPN well. 12/31/2017 patient has been seen by the cardiothoracic team and wound VAC was changed without difficulty. She is having significant ongoing atrial flutter and has been seen by cardiology and they await medication effect for spontaneous transition back to a normal sinus mechanism that she has done the past. Patient is mildly short of breath but does well on the current ventilator settings. Her pain level is no more than a 2 and she is doing well with her physical therapy. NG tube was placed and this has given her relief of her distention and discomfort from her ileus 01/03/2018 patient is comfortable today. She has an IMV ventilation and other than some tiredness she relates she is doing well. Her pain level is 0. No difficulty with the recent dressing changes. Tolerating tube feeding at this point in time without abdominal pain. She is tolerating tube feeds well at this time. 01/04/2018 patient is comfortable doing well tolerated CPAP for 8 hours a day. We'll have her PEG tube placed tomorrow which will then allow the next set of changes hopefully with anticoagulation, cardioversion and then placement to vent facility. 01/05/2018 patient is had her PEG tube placed today. Other than some pain at that site she's doing relatively well. Spirits are good and she looks forward to transitioning to a new facility for chronic weaning and eventual removal of her trach. His related that today there was a moment of standing with multiple person assist. 01/06/2018 patient is still having some postoperative pain from the PEG tube that was placed. Other than That she is doing relatively well. Anticoagulation is started. When she is therapeutic cardioversion will occur and then hopefully transition to the chronic vent facility for long-term weaning. 01/07/2018 patient is doing better today. Her postoperative pain continues to improve and is tolerating tube feeds via the PEG tube well with increasing amounts of nutrition per hour nearly attending her goal. As noted she is comfortable. Did well with physical therapy today. Has been seen by cardiology. With her improved heart rate may not require cardioversion. 01/08/2018 patient continues her improvement however continues to have some tachycardia. Cardiology is following and if her heart rate remains over 100 she 'll be cardioverted early next week. She will then continue the process of transitioning to select specialty for her long-term weaning. And her physical therapy to get her independent. She's feeling well today. Pain level is no more than a 2 from the recent PEG tube site. The legs are feeling better without significant open lesions. 01/10/2018 reveals that the patient is improved, she has had a cardioversion today and her heart rate is now in the low 90s with normal sinus rhythm. She's feeling relatively well. With her pain level is about a 2 from her recent PEG tube placement. She relates no other new acute discomforts. Objective - Vital Signs Vital signs: Vital Signs Temp 98.2 F 01/10/18 20:00 Pulse 88 01/10/18 22:00 Resp 19 01/10/18 22:00 BP 114/78 01/10/18 12:00 Pulse Ox 99 01/10/18 22:00 Intake & Output 01/10/18 01/10/18 01/11/18 06:59 18:59 06:59 Intake Total 1078 582 123 Output Total 740 1428 105 Balance 338 846 18 Weight 99.7 kg 99.7 kg Intake: IV 133 36 9 Meropenem 1 gm In Sodium 100 Chloride 0.9% 100 ml @ 200 mls/hr IVPB Q8HR [facility] Rx#:[id number] Pressure Bag 33 36 9 Tube Feeding 855 456 114 Other 90 90 Output: Drainage 280 970 20 Medial Chest Incision - 350 Woundvac Right Abdomen 280 620 20 Urine 460 458 85 Other: Voiding Method Indwelling Catheter Indwelling Catheter Indwelling Catheter ABP, PAP, CO, CI - Last Documented Arterial Blood Pressure 101/51 Pulmonary Artery Pressure 38/33 Cardiac Output 5.8 Cardiac Index 2.9 - Exam Obese 67-year-old woman who is with a tracheostomy in place HEENT: Anicteric conjunctiva are pink and moist nasal mucosa grossly intact without significant lesions, there is no thrush. Oral mucosa is dry but no swapnil lesions could be seen, Neck: The neck is supple without significant lymphadenopathy or thyromegaly. Tracheostomy intact without bleeding, and the inferior aspect of the tracheostomy is evidence of some pressure ulceration from the tracheostomy onto the tissue which we advised DuoDERM to the site., there is evidence of the posterior scalp eschar please refer to the nursing photography. Lungs: Symmetrical air entry is noted. There is scattered crackles but no swapnil bronchial sounds Heart: Irregular with an audible S1 and S2 soft S4 no audible murmur no click or rub Chest: The patient's mid sternotomy incision is now covered with a postoperative dressing from the plastic closure which is reported to be a partial flap closure Abdomen: Obese, Positive bowel sounds soft and nontender without palpable masses or organomegaly. There was no guarding or rebound. Distention is slightly improved with initiation of the nasogastric tube and suction. Symptomatically she feels better Extremities: The upper and lower extremities have evidence of edema harvest site is intact there is some bruising that is noted especially on the left groin area. IV sites are intact. Skin: With the nursing staff the buttocks pressure ulcerations are evaluated which are showing improvement. The ulceration on the skin fold above her buttocks is also evaluated and appears to be improving. Also improvement of the ulceration to the right wrist area. The blistering skin from her hypoalbuminemia and volume overload is much improved Neuro: Comfortable at this time pain level 2 after the PEG tube placement, no acute changes neurologically - Labs CBC & Chem 7: 01/10/18 04:40 01/10/18 04:40 Labs: Abnormal Lab Results - Last 24 Hours (Table) 01/10/18 01/10/18 01/10/18 Range/Units 04:40 04:40 04:40 WBC 12.2 H (3.8-10.6) k/uL RBC 2.84 L (3.80-5.40) m/uL Hgb 7.6 L (11.4-16.0) gm/dL Hct 25.1 L (34.0-46.0) % MCHC 30.4 L (31.0-37.0) g/dL RDW 21.5 H (11.5-15.5) % PT 32.4 H (9.0-12.0) sec INR 3.6 H (<1.2) ABG pH (7.35-7.45) ABG HCO3 (21-25) mmol/L ABG Total CO2 (19-24) mmol/L ABG O2 Saturation (94-97) % Carbon Dioxide 31 H (22-30) mmol/L BUN 45 H (7-17) mg/dL Glucose 106 H (74-99) mg/dL POC Glucose (mg/dL) (75-99) mg/dL 01/10/1818 01/10/18 Range/Units 05:41 08:25 12:22 WBC (3.8-10.6) k/uL RBC (3.80-5.40) m/uL Hgb (11.4-16.0) gm/dL Hct (34.0-46.0) % MCHC (31.0-37.0) g/dL RDW (11.5-15.5) % PT (9.0-12.0) sec INR (<1.2) ABG pH 7.48 H (7.35-7.45) ABG HCO3 31 H (21-25) mmol/L ABG Total CO2 32 H (19-24) mmol/L ABG O2 Saturation 99.2 H (94-97) % Carbon Dioxide (22-30) mmol/L BUN (7-17) mg/dL Glucose (74-99) mg/dL POC Glucose (mg/dL) 102 H 103 H (75-99) mg/dL Microbiology - Last 24 Hours (Table) 12/10/17 10:50 Fungal Culture - Final Chest 12/10/17 10:40 Fungal Culture - Final Chest 12/10/17 10:45 Fungal Culture - Final Chest Laboratory Results WBC 12.2 k/uL (3.8-10.6) H 01/10/18 04:40 RBC 2.84 m/uL (3.80-5.40) L 01/10/18 04:40 Hgb 7.6 gm/dL (11.4-16.0) L 01/10/18 04:40 Hct 25.1 % (34.0-46.0) L 01/10/18 04:40 MCV 88.4 fL (80.0-100.0) 01/10/18 04:40 MCH 26.9 pg (25.0-35.0) 01/10/18 04:40 MCHC 30.4 g/dL (31.0-37.0) L 01/10/18 04:40 RDW 21.5 % (11.5-15.5) H 01/10/18 04:40 Plt Count 275 k/uL (150-450) 01/10/18 04:40 Neutrophils % 87 % 01/08/18 04:30 Neutrophils % (Manual) 98 % 12/05/17 04:25 Lymphocytes % 5 % 01/08/18 04:30 Lymphocytes % (Manual) 1 % 12/05/17 04:25 Monocytes % 5 % 01/08/18 04:30 Monocytes % (Manual) 1 % 12/05/17 04:25 Eosinophils % 2 % 01/08/18 04:30 Basophils % 0 % 01/08/18 04:30 Myelocytes % 1 % 12/03/17 04:15 Neutrophils # 9.8 k/uL (1.3-7.7) H 01/08/18 04:30 Neutrophils # (Manual) 26.95 k/uL (1.3-7.7) H 12/05/17 04:25 Lymphocytes # 0.5 k/uL (1.0-4.8) L 01/08/18 04:30 Lymphocytes # (Manual) 0.28 k/uL (1.0-4.8) L 12/05/17 04:25 Monocytes # 0.6 k/uL (0-1.0) 01/08/18 04:30 Monocytes # (Manual) 0.28 k/uL (0-1.0) 12/05/17 04:25 Eosinophils # 0.2 k/uL (0-0.7) 01/08/18 04:30 Basophils # 0.0 k/uL (0-0.2) 01/08/18 04:30 Myelocytes # (Manual) 0.17 k/uL (0) H 12/03/17 04:15 Nucleated RBCs 0 /100 WBC (0-0) 12/05/17 04:25 Manual Slide Review Performed 12/05/17 04:25 Polychromasia Present 12/03/17 04:15 Hypochromasia Marked 01/10/18 04:40 Poikilocytosis Slight 01/08/18 04:30 Anisocytosis Moderate 01/10/18 04:40 Microcytosis Slight 01/05/18 05:00 Target Cells Present 12/03/17 04:15 PT 32.4 sec (9.0-12.0) H 01/10/18 04:40 INR 3.6 (<1.2) H 01/10/18 04:40 APTT 23.9 sec (22.0-30.0) 12/21/17 04:50 Fibrinogen 334 mg/dL (200-500) 11/26/17 04:22 Sample Site a line 01/10/18 08:25 ABG pH 7.48 (7.35-7.45) H 01/10/18 08:25 ABG pCO2 42 mmHg (35-45) 01/10/18 08:25 ABG pO2 102 mmHg (83-108) 01/10/18 08:25 ABG HCO3 31 mmol/L (21-25) H 01/10/18 08:25 ABG Total CO2 32 mmol/L (19-24) H 01/10/18 08:25 ABG O2 Saturation 99.2 % (94-97) H 01/10/18 08:25 ABG Base Excess 7.2 mmol/L 01/10/18 08:25 ABG Hematocrit 24 % (34.0-46.0) L 11/25/17 17:37 Robbi Test Yes 01/10/18 08:25 ABG Sodium 144 mmol/L (135-146) 11/25/17 17:37 ABG Potassium 3.8 mmol/L (3.4-4.5) 11/25/17 17:37 ABG Ionized Calcium 4.0 mg/dL (4.5-5.3) L 11/25/17 17:37 ABG Glucose 139 mg/dL (75-99) H 11/25/17 17:37 ABG Lactic Acid 2.8 mmol/L (0.5-1.6) H* 11/25/17 17:37 Hemoglobin 7.8 gm/dL (11.4-16.0) L 11/25/17 17:37 FiO2 35 % 01/10/18 08:25 Sodium 137 mmol/L (137-145) 01/10/18 04:40 Potassium 4.1 mmol/L (3.5-5.1) 01/10/18 04:40 Chloride 99 mmol/L (98-107) 01/10/18 04:40 Carbon Dioxide 31 mmol/L (22-30) H 01/10/18 04:40 Anion Gap 7 mmol/L 01/10/18 04:40 BUN 45 mg/dL (7-17) H 01/10/18 04:40 Creatinine 0.80 mg/dL (0.52-1.04) 01/10/18 04:40 Est GFR (MDRD) Af Amer >60 (>60 ml/min/1.73 sqM) 12/07/17 04:00 Est GFR (MDRD) Non-Af >60 (>60 ml/min/1.73 sqM) 12/07/17 04:00 Est GFR (CKD-EPI)AfAm 88 (>60 ml/min/1.73 sqM) 01/10/18 04:40 Est GFR (CKD-EPI)NonAf 77 (>60 ml/min/1.73 sqM) 01/10/18 04:40 Glucose 106 mg/dL (74-99) H 01/10/18 04:40 POC Glucose (mg/dL) 99 mg/dL (75-99) 01/10/18 18:10 POC Glu Service Delivery Supervisor ID Ashlyn Alexander 01/10/18 18:10 Calcium 8.4 mg/dL (8.4-10.2) 01/10/18 04:40 Ionized Calcium Bruce 4.7 mg/dL (4.5-5.3) 12/11/17 15:45 Phosphorus 3.4 mg/dL (2.5-4.5) 01/10/18 04:40 Magnesium 2.3 mg/dL (1.6-2.3) 01/10/18 04:40 Total Bilirubin 0.4 mg/dL (0.2-1.3) 12/31/17 04:30 AST 36 U/L (14-36) 12/31/17 04:30 ALT 34 U/L (9-52) 12/31/17 04:30 Alkaline Phosphatase 88 U/L (38-126) 12/31/17 04:30 Total Protein 6.2 g/dL (6.3-8.2) L 12/31/17 04:30 Albumin 3.1 g/dL (3.5-5.0) L 12/31/17 04:30 Prealbumin 7.0 mg/dL (18.0-42.0) L 12/27/17 05:10 Triglycerides 130 mg/dL (<150) 12/29/17 11:45 Cholesterol 80 mg/dL (<200) 12/29/17 11:45 LDL Cholesterol, Calc 34 mg/dL (0-99) 12/29/17 11:45 HDL Cholesterol 20 mg/dL (40-60) L 12/29/17 11:45 Arterial Blood Potassium 3.8 mmol/L (3.4-4.5) 11/25/17 17:37 Arterial Blood Glucose 139 mg/dL (75-99) H 11/25/17 17:37 Urine Color Yellow 12/04/17 10:00 Urine Appearance Cloudy (Clear) H 12/04/17 10:00 Urine pH 5.5 (5.0-8.0) 12/04/17 10:00 Ur Specific [place] 1.015 (1.001-1.035) 12/04/17 10:00 Urine Protein Trace (Negative) H 12/04/17 10:00 Urine Glucose (UA) Negative (Negative) 12/04/17 10:00 Urine Ketones Negative (Negative) 12/04/17 10:00 Urine Blood Negative (Negative) 12/04/17 10:00 Urine Nitrite Negative (Negative) 12/04/17 10:00 Urine Bilirubin Negative (Negative) 12/04/17 10:00 Urine Urobilinogen <2.0 mg/dL (<2.0) 12/04/17 10:00 Ur Leukocyte Esterase Negative (Negative) 12/04/17 10:00 Urine RBC 7 /hpf (0-5) H 12/04/17 10:00 Urine WBC 1 /hpf (0-5) 12/04/17 10:00 Ur Squamous Epith Cells 8 /hpf (0-4) H 12/04/17 10:00 Urine Bacteria Occasional /hpf (None) H 12/04/17 10:00 Urine Mucus Rare /hpf (None) H 12/04/17 10:00 Fluid Source Bronchial Wash 12/15/17 10:40 Fluid Color Colorless 12/15/17 10:40 Fluid Appearance Cloudy 12/15/17 10:40 Fluid RBC 150 /uL 12/15/17 10:40 Fluid Nucleated Cells 6900 /uL 12/15/17 10:40 Fluid Polynuclear WBCs 95 % 12/15/17 10:40 Fluid Mononuclear WBCs 5 % 12/15/17 10:40 Stl Cryptosporidium Ag Negative (Negative) 01/02/18 06:00 Stool Giardia Source Stool 01/02/18 06:00 Stl Giardia Antigen Negative (Negative) 01/02/18 06:00 Vancomycin Trough 22.9 ug/mL 01/01/18 04:45 Random Vancomycin 21.2 ug/mL 12/16/17 04:15 Heparin-Ind Plt Ab Scrn 0.231 OD (<0.4) 11/29/17 04:50 C. difficile (EIA) Intrp Negative (Negative) 01/02/18 06:00 Virus Source See Below 12/15/17 10:40 Viral Test See Below 12/15/17 10:40 Virus Analysis Interp See Below 12/15/17 10:40 Blood Type A Positive 01/05/18 08:30 Blood Type Recheck No 01/05/18 08:30 Antibody Screen NEGATIVE 01/05/18 08:30 Crossmatch See Detail 12/14/17 10:10 Transfuse Cryo [id number] 11/26/17 00:39 Transfuse Plasma 12/15/2017 12/15/17 05:51 Transfuse Platelets [id number] 11/25/17 14:55 Spec Expiration Date 01/08/2018 - 2330 01/05/18 08:30 Microbiology 12/10/17 10:50 Chest Fungal Culture - Final 12/10/17 10:40 Chest Fungal Culture - Final 12/10/17 10:45 Chest Fungal Culture - Final 01/02/18 06:00 Stool Stool Culture - Final 12/15/17 10:40 Bronchial Washings - Left Acid Fast Bacilli Smear - Final 12/15/17 10:40 Bronchial Washings - Left Acid Fast Bacilli Culture - Preliminary 12/10/17 10:45 Chest Acid Fast Bacilli Smear - Final 12/10/17 10:45 Chest Acid Fast Bacilli Culture - Preliminary 12/10/17 10:50 Chest Acid Fast Bacilli Smear - Final 12/10/17 10:50 Chest Acid Fast Bacilli Culture - Preliminary 01/02/18 06:00 Stool Stool for WBCs - Final 12/24/17 11:30 Catheter Tip Catheter Tip Culture - Final 12/15/17 10:40 Bronchial Washings - Left Fungal Culture - Preliminary Rachana albicans 12/15/17 10:40 Bronchial Washings - Left Gram Stain - Final 12/15/17 10:40 Bronchial Washings - Left Bronchial Washings Culture - Final Rachana albicans 12/14/17 21:30 Sputum Gram Stain - Final 12/14/17 21:30 Sputum Sputum Culture - Final Rachana albicans 12/10/17 10:50 Chest Anaerobic Culture - Final 12/10/17 10:40 Chest Anaerobic Culture - Final 12/10/17 10:45 Chest Anaerobic Culture - Final 12/13/17 05:27 Urine,Catheterized Urine Culture - Final 12/10/17 10:40 Chest Gram Stain - Final 12/10/17 10:40 Chest Wound Culture - Final Serratia marcescens 12/10/17 10:45 Chest Gram Stain - Final 12/10/17 10:45 Chest Tissue Culture - Final Serratia marcescens 12/10/17 10:50 Chest Gram Stain - Final 12/10/17 10:50 Chest Tissue Culture - Final Serratia marcescens 12/07/17 15:40 Chest Gram Stain - Final 12/07/17 15:40 Chest Wound Culture - Final Serratia marcescens 12/04/17 10:00 Urine,Voided Urine Culture - Final Escherichia coli Serratia marcescens 11/26/17 04:00 Sputum Gram Stain - Final 11/26/17 04:00 Sputum Sputum Culture - Final Assessment and Plan (1) Severe mitral regurgitation Current Visit: Yes Status: Chronic Code(s): I34.0 - NONRHEUMATIC MITRAL ( VALVE) INSUFFICIENCY SNOMED Code(s): 24076659 (2) CAD (coronary artery disease) Current Visit: Yes Status: Chronic Code(s): I25.10 - ATHSCL HEART DISEASE OF [place] CORONARY ARTERY W/O ANG PCTRS SNOMED Code(s): 23225357 (3) Acute blood loss as cause of postoperative anemia Current Visit: Yes Status: Acute Code(s): D62 - ACUTE POSTHEMORRHAGIC ANEMIA SNOMED Code(s): 04580889961545002 (4) Pressure ulcer of contiguous region involving back and buttock, stage 3 Current Visit: Yes Status: Acute Code(s): L89.43 - PRESSR ULCER OF CONTIG SITE OF BACK, BUTTOCK AND HIP, STG 3 SNOMED Code(s): 551118579 (5) Sternal wound dehiscence Narrative/Plan: 67-year-old woman presents to Hospital for treatment of her severe mitral irritation. Underwent mitral valve replacement, coronary artery bypass grafting 1, Maze procedure and clipping of the left atrial appendage with a complication of the left ventricular wall tear. The patient has had a very protracted recovery she is now day 14 post operative and is still having difficulty with her respiratory status requiring BiPAP. The patient's nutritional status and underlying comorbidities have complicated her care. She now has evidence of the sternal dehiscence with evidence of gram negatives bacilli being found at the site. There is evidence of urinary tract infection with E. coli and Serratia. This Serratia species is somewhat resistant and consequently we'll alter the current antimicrobial therapy from Zosyn to meropenem to ensure coverage for other potential pathogens that are resistant that could be in the sternal wound while we await cultures. The patient will be going to the operating room tomorrow for debridement and wound VAC placement. The cultures were further direct the overall course of antibiotics. Urinary infection appears to be doing somewhat better. The patient fortunately is comfortable and doing well with her BiPAP. 12/10/2017 the patient is status post surgery and actually is feeling a bit better this afternoon than yesterday. Her pain is quite well controlled. She is not on BiPAP. She is less short of breath. Wound culture has verified the Serratia marcescens to the sternal wound. We'll constantly continue the current course of meropenem due to some of the resistance patterns or seeing with the species. Continue local care at this point time with the negative pressure system to the sternal wound. The plastic surgery consult is being requested for reconstruction of her chest. She will require a course of intravenous antibiotic therapy given her complex infection. Dual-lumen PICC is already in place. We'll repeat the discharge planners as to her place of rehab. 12/11/2017 the patient is metabolically stable but is having difficulties with her respiratory status and is now back on BiPAP which has been intermittent over the last multiple days. Negative pressure therapy remains intact and the sternum and we await the plastic surgery intervention. 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 Continue supportive care, and nutritional supplements as possible to improve for tissue healing. 12/13/2017 patient is on BiPAP. She is comfortable at this time. Receiving her intravenous antibiotic therapy without difficulties. At this time the surgeon present in a sterile fashion the wound VAC is removed. Surgeon evaluates and then the wound VAC is reapplied with 2 of the white foam, periwound protected with DuoDERM no difficulty with the seal. Merrem continues. 12/15/2017 the patient has had marked worsening of her status in that she had respiratory failure requiring reintubation and mechanical ventilation. She is now sedated and comfortable but has had some hemodynamic instability and is now back on vasopressor therapy. Bronchoscopy is performed and suctioning of mucous plugs as allowed some improvement of her pulmonary status. Further cultures are process. Meropenem and vancomycin continue for the isolated Serratia and concerns for resistant gram-positive infection at this time. Plastic surgery evaluation is in process and surgical plans for later this week appear to be possible. 12/16/2017 reveals the patient to be stable from the last 24 hours. Her ventilatory settings are similar. She's currently not on vasopressor therapy. She is tolerating current antibiotic therapy well with no difficulties with rash and diarrhea or marked changes of her hematological parameters. She's had no further active bleeding. Sputum culture with gram-positive cocci seen vancomycin was added we await final cultures. 12/20/2017 patient remained stable and is being prepped for her sternal reconstruction surgery tomorrow. She's not on vasopressor therapy, and vent settings are stable. Most recent bronchoscopy showed mucous plug no evidence of any new pathogens except yeast was found likely from upper airways. Fluconazole was added given her significant risks, although fungal pneumonia is not occurring at this time. At the time of reconstruction repeat samplings from her sternum will be helpful to help direct the course of antibiotic therapy , pathology and culture of the sternum will be helpful. Remains on the meropenem and vancomycin at this time. 12/21/2017 the patient is status post the sternal reconstruction with muscle flap, reportedly is only a partial closure at this time. However visit. The cardiac structure is completely covered. The patient is showing improvement in her cardiopulmonary status today. No active bleeding is noted. She is tolerating current antibiotic therapy well with meropenem and vancomycin. Await final culture and pathological data to help derive the course of her antibiotic therapy 12/23/2017 reveals the patient to be improved, she has been extubated and tolerating BiPAP well. The case is discussed with the cardiothoracic surgeon. The muscle flap was then performed and there is a biological skin substitute over the flap. She related that the plastic surgeon would not allow a wound VAC to be placed for approximately 10 days after the surgery. We will monitor. Continue current antibiotic therapy planning a multiweek course of therapy for the complex sternal wound infection. 12/24/2017 reveals the patient to have further improvement that she has had a tracheostomy placed. This will hopefully help her long-term weaning situation and also help with the nutritional difficulties. As she has improvement of her status hopefully the significant difference with her skin from the edema low albumin and blistering will improve. Receiving extensive antibiotic therapy for the sternal wound dehiscence will continue with the meropenem and vancomycin at this time. 12/25/2017 reveals the patient to have some improvement in the last 24 hours. She's doing well with a tracheostomy and is on 35% FiO2. Pain control is well at this point in time. Her spitting edema seems to be slightly improving and does not have as many blisters that she was having. Still does have anasarca but appears to be a bit less tight than she was a day ago. Her wounds are improving with the local wound care. Antibiotic therapy continues with meropenem and vancomycin for the sternal wound dehiscence and infection. Dressing changes have been per the cardiothoracic team to the chest wound. The abdominal wound is healing well and is having some serous drainage related to the anasarca. Hopefully with improving edema status and improve nutritional status anasarca will resolve. 12/27/2017 reveals a patient with further improvement. Her anasarca is improving and she is having less edema. She is tolerating the intravenous antibiotic therapy of meropenem and vancomycin for her sternal wound dehiscence. Leukocytosis in general is improved. No other new infections are noted. She had a wound VAC dressing change today of the sternal area. 12/28/2017 reveals the patient to have developed some bowel distention and concerns to ileus. She's been seen by general surgery. He will determine if she needs to have her Dobbhoff removed and an NG tube place. The patient has significant hypo albuminemia and is in need of the extensive supplementation, consequently TPN was requested per the surgeon. She will remain on her antibiotic therapy planning 6 weeks for the complex sternal dehiscence. Cardiothoracic surgery have changed her VAC dressing to her sternal wound. 12/29/2017 patient continues to tolerate antibiotic therapy well. Orders have been clarified for the 6 weeks of meropenem and vancomycin. cardiothoracic is in charge of the dressing changes to the complex sternal dehiscence wound. Tolerating TPN well with overall goal to improve her very low protein which will help her significant and extensive tissue edema. 12/30/2017 patient continues to have some improvement, if she is improving [facility].she is doing better from her ileus and TPN is being well-tolerated.will be on intravenous antibiotic therapy through 01/21/2018 12/31/2017 patient is stable at this time status post the NG tube has been placed for her ileus. Nutrition via TPN. Antibiotic therapy with the meropenem and vancomycin continues through 01/21/2018. Follow up cultures as indicated. Wound VAC is being changed as per cardiothoracic surgery. The pressure ulcerations to the buttocks area and posterior scalp are improving. 01/03/2018 reveals the patient to be feeling somewhat better today. Pain level is 0. Tolerating nutrition well at this point in time and has been cleared for a PEG tube to be placed to allow easier nutrition when she is ready [facility]. He has tolerated IMV trial today quite well. Antibiotic therapy continues to 01/21/2018. 01/04/2018 H and doing well on her current CPAP trials. PEG tube tomorrow. If this occurs she will then be able to have anticoagulation, cardioversion. Once cardioversion occurs in her heart rate improve she would then be a candidate [facility]. Antibiotic therapy until 01/21/2018 01/05/2018 patient has had her PEG tube placed today. Other than some pain at that site she's doing quite well. Tolerating multiple hours of CPAP today. There was a momentary standing with a multiperson assist. When she is anticoagulated will then be able to have a cardioversion after which she will be transferred [facility] therapy through 01/21/2018 01/06/2018 patient is status post PEG tube placement. Is receiving 20 mL/h of nutrition and tolerating it well. As she is improving and will move to her goal. Enhance nutrition will be an important part of her overall healing and eventual long-term weaning and eventual decannulation from her tracheostomy. For her sternal dehiscence she is on antibiotic therapy through 01/21/2018. Her pain control is adequate. Her spirits are good. She is somewhat anxious about standing with worries about falling but is doing better today. 01/07/2018 patient is doing better today with improved pain. Has been seen by cardiology and may not need cardioversion noted her heart rate is improved if she should have some further recovery after her PEG tube is placed in improve nutrition. Denies new acute difficulties at this time. As she improves will eventually be transitioned to the long-term weaning facility at her antibiotic therapy continues through 01/21/2018. 01/08/2018 patient continues to have ongoing improvement. Pain level is only a 2. Doing well with her tube feeding has met her nutritional goal. If her heart rate continues to improve she may not need cardioversion, however if heart rate remains greater than 100 she likely be cardioverted early next week when she has achieved adequate anticoagulation. She will then be moved to the long-term facility for weaning and physical therapy. Antibiotic therapy continues through 01/21/2018. 01/10/2018 patient continues to have improvement. He level is only a 2. She had a cardioversion today and is feeling better. Antibiotic therapy continues to 01/21/2018 for her sternal wound infection. Local wound care to the multiple sites is reviewed with the nurse. Current Visit: Yes Status: Acute Code(s): T81.32XA - DISRUPTION OF INTERNAL OPERATION (SURGICAL) WOUND, NEC, INIT SNOMED Code(s): 64400823
[2018-01-10 22:53] LABS: Glucose,Whole Blood 112 mg/dL (75-99)
[2018-01-11] MEDS: IPRATROPIUM-ALBUTEROL 3 ML NEB INHALATION SCH ×4 (00:40→11:18)
[2018-01-11] MEDS: INSULIN ASPART 100 UNIT/ML 1 ML 10 ML VIAL SQ SCH ×3 (02:47→12:23)
[2018-01-11 05:10] LABS: ABG Base Excess 6.8 mmol/L; ABG HCO3 31 mmol/L (21-25); ABG PCO2 44 mmHg (35-45); ABG PH 7.46 (7.35-7.45); ABG PO2 110 mmHg (83-108); ABG TCO2 32 mmol/L (19-24)
[2018-01-11 05:20] LABS: Anisocytosis Moderate; HGB 7.3 gm/dL (11.4-16.0); Hypochromasia Marked; MCH 25.8 pg (25.0-35.0); MCHC 29.1 g/dL (31.0-37.0); MCV 88.7 fL (80.0-100.0); Mean Platelet Volume 7.7; Platelet Count 282 k/uL (150-450); RBC 2.82 m/uL (3.80-5.40); RDW 21.5 % (11.5-15.5); WBC 14.5 k/uL (3.8-10.6)
[2018-01-11 05:36] LABS: INR 3.8 (<1.2); Prothrombin Time 34.1 sec (9.0-12.0)
[2018-01-11 05:38] LABS: Anion Gap 10 mmol/L; Blood Urea Nitrogen 47 mg/dL (7-17); Calcium 8.5 mg/dL (8.4-10.2); Carbon Dioxide 28 mmol/L (22-30); Chloride 100 mmol/L (98-107); Glucose 108 mg/dL (74-99); Magnesium 2.3 mg/dL (1.6-2.3); Phosphorus 3.9 mg/dL (2.5-4.5); Potassium 4.2 mmol/L (3.5-5.1); Sodium 138 mmol/L (137-145)
[2018-01-11 06:07] LABS: Glucose,Whole Blood 117 mg/dL (75-99)
[2018-01-11] MEDS: METOCLOPRAMIDE 5 MG/ML 2 ML VIAL IVP SCH ×2 (06:08→12:21)
[2018-01-11] MEDS: BUDESONIDE 1 MG/2 ML NEBU INHALATION SCH (07:55)
--- NOTE | 2018-01-11 08:28 | P.PN ---
Subjective Progress Note Date: 01/11/18 Principal diagnosis: Severe mitral regurgitation. Coronary artery disease. Paroxysmal atrial fibrillation on Coumadin for anticoagulation. Recent hospitalization for lower GI bleed, duodenal ulcer. History of left subclavian stenosis with stent placement 2014 with recent discovery of critical re-in-stent stenosis. Previous tobacco dependence with preoperative FEV1 60% of predicted. Hypertension. Hyperlipidemia. Gallbladder disease. Family history of heart disease. Preoperative nasal swab positive for MRSA. Preoperative anemia. POD #47 mitral valve replacement using a 25 mm Ribera bioprosthetic tissue valve. Coronary artery bypass grafting 1, reverse saphenous vein graft to the obtuse marginal artery. Maze procedure. Endoscopic harvesting of the right greater saphenous vein. Epi-aortic ultrasound. Intraoperative transesophageal echocardiogram. Ligation of the left atrial appendage using a 40 mm AtriClip. Intraoperative left ventricular wall tear, an unexpected but potential outcome of surgery Acute blood loss anemia, and expected outcome given patient's preoperative anemia and intraoperative bleeding. Postoperative prolonged mechanical ventilation secondary to hemodynamic instability, and unexpected but potential outcome of surgery given the extensive nature of her perioperative course. POD #18 placement of a #8 Shiley nonfenestrated tracheostomy tube. Sternal incision dehiscence, a possible outcome of surgery given patient's obesity, nutrition status, debility POD #19 right rectus abdominous muscle flap closure, open sternal wound. Closure of sternal wound and muscle flap with skin graft substitute, 238 cm. Implantation of reconstructive graft for closure of abdominal wall wound, [address] Krause POD #32 sternal wound debridement with placement of wound VAC. Postoperative left lower lobe collapse secondary to mucous plugging, and unexpected but potential outcome of surgery. Bronchial washings positive for Rachana species. POD #27 bronchoscopy and bronchoalveolar lavage of the left lower lobe and extraction of mucous plug. Postoperative ileus, an unexpected but potential outcome of surgery. POD #6 placement of percutaneous endoscopic gastrostomy tube. POD #1 DC cardioversion with conversion to normal sinus rhythm. The patient's currently sitting up in bed in no acute distress. Does complain of some mild pain around the PEG tube site. Continues to remain in normal sinus rhythm. [facility]. Objective - Vital Signs Vital signs: Vital Signs Temp 98.2 F 01/10/18 20:00 Pulse 91 01/11/18 08:09 Resp 19 01/11/18 07:00 BP 114/78 01/10/18 12:00 Pulse Ox 99 01/11/18 07:00 Intake & Output 01/10/18 01/11/18 01/11/18 18:59 06:59 18:59 Intake Total 582 951 60 Output Total 1428 615 50 Balance -846 336 10 Weight 99.7 kg 100.8 kg Intake: IV 36 36 3 Pressure Bag 36 36 3 Tube Feeding 456 855 57 Other 90 60 Output: Drainage 970 230 Medial Chest Incision - 350 Woundvac Right Abdomen 620 230 Urine 458 385 50 Other: Voiding Method Indwelling Catheter Indwelling Catheter ABP, PAP, CO, CI - Last Documented Arterial Blood Pressure 119/57 Pulmonary Artery Pressure 38/33 Cardiac Output 5.8 Cardiac Index 2.9 - Constitutional General appearance: Present: cooperative, no acute distress, obese - Respiratory Details: Lung sounds diminished bilaterally. Respirations even, nonlabored. Currently on mechanical ventilation with oxygen saturation 100%. Ventilator settings assist control mode, FiO2 35%, tidal volume 400, respiratory rate 20, PEEP 5. ABGs this morning 7.46/40/110/31/6.8/100% on 35% FiO2. #8 Shiley tracheostomy present. - Cardiovascular Details: S1, S2 present. Regular, rate and rhythm, normal sinus rhythm on telemetry. Open chest with wound VAC in place. Palpable peripheral pulses bilaterally. Bilateral lower extremity edema present, mostly feet and thigh area. No calf pain or tenderness noted. Antiembolism stockings, SCDs present. Right axillary arterial line, left brachial PICC line present. - Gastrointestinal Gastrointestinal Comment(s): Abdomen soft, nontender, nondistended, obese, no tympany noted. Active bowel sounds 4 quadrants. PEG tube present to left upper quadrant, tube feeding infusing at 57 mL per hour and patient tolerating well. - Genitourinary Genitourinary Comment(s): Mason present draining clear, yellow urine. Output 25-45 mL/h overnight. - Integumentary Integumentary Comment(s): Skin is warm and dry. Anterior chest open with wound VAC in place. Abdominal incision clean, dry with intact maya, right lower quadrant HENRI drain present, drainage 230 mL in the last 8 hours. Head with small area of eschar occipitally , no drainage present. Sacral area with pressure ulcer, local wound care. Pressure wound present underneath tracheostomy, covered with DuoDERM. - Neurologic Neurologic: Present: CNII-XII intact - Musculoskeletal Musculoskeletal: Present: generalized weakness - Psychiatric Psychiatric: Present: A&O x's 3, appropriate affect, intact judgment & insight - Allied health notes Allied health notes reviewed: nursing - Labs CBC & Chem 7: 01/11/18 04:55 01/11/18 04:55 Labs: Abnormal Lab Results - Last 24 Hours (Table) 01/10/18 01/10/18 01/10/18 Range/Units 08:25 12:22 22:50 WBC (3.8-10.6) k/uL RBC (3.80-5.40) m/uL Hgb (11.4-16.0) gm/dL Hct (34.0-46.0) % MCHC (31.0-37.0) g/dL RDW (11.5-15.5) % PT (9.0-12.0) sec INR (<1.2) ABG pH 7.48 H (7.35-7.45) ABG pO2 (83-108) mmHg ABG HCO3 31 H (21-25) mmol/L ABG Total CO2 32 H (19-24) mmol/L ABG O2 Saturation 99.2 H (94-97) % BUN (7-17) mg/dL Glucose (74-99) mg/dL POC Glucose (mg/dL) 103 H 112 H (75-99) mg/dL 01/11/18 01/11/18 01/11/18 Range/Units 04:55 04:55 04:55 WBC 14.5 H (3.8-10.6) k/uL RBC 2.82 L (3.80-5.40) m/uL Hgb 7.3 L (11.4-16.0) gm/dL Hct 25.0 L (34.0-46.0) % MCHC 29.1 L (31.0-37.0) g/dL RDW 21.5 H (11.5-15.5) % PT 34.1 H (9.0-12.0) sec INR 3.8 H (<1.2) ABG pH (7.35-7.45) ABG pO2 (83-108) mmHg ABG HCO3 (21-25) mmol/L ABG Total CO2 (19-24) mmol/L ABG O2 Saturation (94-97) % BUN 47 H (7-17) mg/dL Glucose 108 H (74-99) mg/dL POC Glucose (mg/dL) (75-99) mg/dL 01/11/18 01/11/18 Range/Units 05:06 06:06 WBC (3.8-10.6) k/uL RBC (3.80-5.40) m/uL Hgb (11.4-16.0) gm/dL Hct (34.0-46.0) % MCHC (31.0-37.0) g/dL RDW (11.5-15.5) % PT (9.0-12.0) sec INR (<1.2) ABG pH 7.46 H (7.35-7.45) ABG pO2 110 H (83-108) mmHg ABG HCO3 31 H (21-25) mmol/L ABG Total CO2 32 H (19-24) mmol/L ABG O2 Saturation 100.0 H (94-97) % BUN (7-17) mg/dL Glucose (74-99) mg/dL POC Glucose (mg/dL) 117 H (75-99) mg/dL Microbiology - Last 24 Hours (Table) 12/10/17 10:50 Fungal Culture - Final Chest 12/10/17 10:40 Fungal Culture - Final Chest 12/10/17 10:45 Fungal Culture - Final Chest - Imaging and Cardiology Chest x-ray: image reviewed Assessment and Plan (1) Acute blood loss anemia Current Visit: Yes Status: Acute Code(s): D62 - ACUTE POSTHEMORRHAGIC ANEMIA SNOMED Code(s): 226861602 (2) CAD (coronary artery disease) Current Visit: Yes Status: Chronic Code(s): I25.10 - ATHSCL HEART DISEASE OF [place] CORONARY ARTERY W/O ANG PCTRS SNOMED Code(s): 63058489 (3) Hyperlipidemia Current Visit: Yes Status: Chronic Code(s): E78.5 - HYPERLIPIDEMIA, UNSPECIFIED SNOMED Code(s): 95630830 (4) Hypertension Current Visit: Yes Status: Chronic Code(s): I10 - ESSENTIAL (PRIMARY) HYPERTENSION SNOMED Code(s): 62848342 (5) Severe mitral regurgitation Current Visit: Yes Status: Chronic Code(s): I34.0 - NONRHEUMATIC MITRAL ( VALVE) INSUFFICIENCY SNOMED Code(s): 58249341 (6) Stenosis of left subclavian artery Current Visit: Yes Status: Chronic Code(s): I77.1 - STRICTURE OF ARTERY SNOMED Code(s): 79282991192624559 (7) Paroxysmal atrial fibrillation Current Visit: No Status: Resolved Code(s): I48.0 - PAROXYSMAL ATRIAL FIBRILLATION SNOMED Code(s): 344193873 (8) History of GI bleed Current Visit: No Status: Resolved Code(s): Z87.19 - PERSONAL HISTORY OF OTHER DISEASES OF THE DIGESTIVE SYSTEM SNOMED Code(s): 105371169 (9) Family history of coronary artery disease Current Visit: Yes Status: Chronic Code(s): Z82.49 - FAMILY HX OF ISCHEM HEART DIS AND OTH DIS OF THE CIRC SYS SNOMED Code(s): 453990556 (10) Ileus, postoperative Current Visit: Yes Status: Acute Code(s): K91.89 - OTH POSTPROCEDURAL COMPLICATIONS AND DISORDERS OF DGSTV SYS; K56.7 - ILEUS, UNSPECIFIED SNOMED Code(s): 916085920 (11) Pressure ulcer of contiguous region involving back and buttock, stage 3 Current Visit: Yes Status: Acute Code(s): L89.43 - PRESSR ULCER OF CONTIG SITE OF BACK, BUTTOCK AND HIP, STG 3 SNOMED Code(s): 460840840 (12) Sternal wound dehiscence Current Visit: Yes Status: Acute Code(s): T81.32XA - DISRUPTION OF INTERNAL OPERATION (SURGICAL) WOUND, NEC, INIT SNOMED Code(s): 32996810 Plan: 1. Continue baby aspirin, statin, beta krunal. 2. Continue amiodarone for atrial fibrillation prophylaxis. Decrease dose to 100 mg daily. 3. Discontinue Cardizem 4. Ventilator management per pulmonology. Wean as tolerated. 5. Coumadin therapy based on daily PT/INR. No Coumadin today. INR 3.8. Goal range 2.2-2.5. 6. Continue meropenem, Vanco per Dr. Olivera until 01/21/2018. 7. Bronchodilators per pulmonology. 8. GI/DVT prophylaxis. 9. Increase activity. PT/OT/cardiac rehab following. 10. Keep abdominal drain until output is less then 30 mL in [address] Krause. 11. Keep Mason for strict accurate intake and output. Change out every 7 days. 12. Wound VAC to be changed on Wednesday, Wednesday, and Wednesday by nurse practitioner. Changed yesterday 13. Local wound care to back of head and lower back. Silvadene for left upper thigh skin tear. DuoDERM dressing to pressure area under tracheostomy site. 14. More recommendations as patient progresses. [facility] Time with Patient: Greater than 30
--- NOTE | 2018-01-11 08:40 | XR ---
EXAMINATION TYPE: XR chest 1V portable DATE OF EXAM: 01/11/2018 COMPARISON: Prior chest x-ray 01/10/2018 HISTORY: Postop cardiac surgery, tracheostomy tube and cardiomegaly TECHNIQUE: Single frontal view of the chest is obtained. FINDINGS: Tracheostomy tube is overlying appropriate position. Left-sided PICC line shows the distal tip overlying superior vena cava. Surgical maya are present in the midline, patient is post cardi ac valve replacement and atrial appendage clipping. Right basilar density is present with blunted cos tophrenic angles. No evident pneumothorax. Perihilar increased density on the left is noted. Heart re preet enlarged. IMPRESSION: Cardiomegaly with basilar effusions and probable associated atelectasis, correlate to ex clude pneumonia versus edema, congestive heart failure.
[2018-01-11] MEDS ORDERED: AMIODARONE 100 MG TAB PO SCH (09:00)
--- NOTE | 2018-01-11 09:13 | P.PN ---
Subjective Progress Note Date: 01/11/18 Principal diagnosis: Status post one-vessel bypass grafting and mitral valve replacement Progress note dated 11/29/2017 This is a 67-year-old female status post one-vessel bypass grafting and mitral valve replacement. She apparently had surgery on the . Today is postop day #3. The patient currently remains on the mechanical ventilator. Her vent settings are the assist control mode rate of 1210 of I am is 550 FiO2 50% PEEP of 5. Arterial blood gases show a PaO2 of 135 a PaCO2 of 36 and a pH of 7.47. I'm to make a few changes including bumping the rate up from 12 to 20, and decreasing the tidal volume from 550 down to 400, and dropping the FiO2 from 50- 40%. The patient may not be weaned of old low because she remains on insulin drip at 1 unit per hour, Primacor 0.2 mics per kilogram per minute, norepinephrine at 2 mics per minute, half normal saline at 30 mL an hour and propofol at 25 g kilogram per minute. Chest x-rays consistent with fluid overload but bibasilar infiltrates and small effusions and microbiology is negative. The rest of the labs medications and x-rays are all reviewed. Progress note dated 11/30/2017 This is a 67-year-old female status post one-vessel bypass grafting and mitral valve replacement. She had surgery on the . She is postop day #4. She remains on mechanical ventilator. Yesterday, her chest x-ray showed evidence of fluid overload. She did get some diuretics. Today's chest x-ray still shows evidence of fluid overload although it might be slightly improved. She's currently still on the mechanical ventilator on the assist control mode, rate of 26, tidal volume 400, PEEP of 8, FiO2 40%. The patient's arterial blood gases show a PaO2 of 94 and pH 7.46 in a PaCO2 of 41. The patient will get a daily eruption of sedation and a spontaneous breathing trial. The patient remains on norepinephrine at 3 mcg/m, propofol at 30 mics per kilogram per minute, Primacor 0.2 mics per kilogram per minute, half normal saline IV at 15 mL an hour and vital 1.2 at 60 with a goal of 60 mL an hour. The patient failed her spontaneous breathing trial yesterday very quickly, and afterwards, she became dyssynchronous with the ventilator and I had to bump up the PEEP level to 8 and increase her respiratory rate to 26. We also dropped the tidal volume down to 400. She is much more in synchrony today. Progress note dated 12/01/2017 This is a 67-year-old female who is postop day #5, status post one-vessel bypass grafting and mitral valve replacement. She also has a history of postoperative respiratory failure with failure to wean. She was extubated yesterday though. Chest x-ray has evidence of fluid overload which actually is improved. In addition, the patient had acute blood loss anemia requiring blood transfusion postsurgically, hypertension severe mitral regurgitation left subclavian stenosis paroxysmal atrial fibrillation GI bleed and obesity. Yesterday, post extubation we gave the patient 1 shot of Solu-Medrol 60 mg IV push and also put her on BiPAP at 14/5 and 40%. Chest x-ray does show improvement. Today her hemoglobin is below 7 and she'll receive 1 unit of blood followed by some Lasix IV. In addition, I may add on some IV site Medrol and a smaller dose than normal and also some Pulmicort 1 mg twice a day. Progress note dated 12/02/2017 67-year-old female who is postop day #6 status post single-vessel bypass grafting and mitral valve replacement. The patient has been doing very well the last day and a half to 2 days. She has a history of postoperative respiratory failure and initially, failure to wean. She was extubated 2 days ago. She has had to use of BiPAP on and off since that time. She did receive 1 unit of PRBCs yesterday followed by some Lasix 40 mg IV push. Her chest x- ray my opinion still so-so some fluid overload with a small pool of pleural effusion. Other than that, the patient seemed be doing relatively well. She has a history of hypertension severe mitral regurgitation blood loss anemia following surgery left subclavian stenosis paroxysmal atrial fibrillation GI bleed and obesity. This morning, she'll come off the BiPAP and go back to nasal O2. She prefers a nasal O2 over the BiPAP device. She may have had an episode of aspiration last night. Speech pathology was consulted. In addition , I did check for a DVT in the right upper extremity and the Doppler was negative. Progress note dated 12/03/2017 67-year-old female postop day #7, status post single-vessel bypass grafting and mitral valve replacement. The patient has been doing relatively well although this morning she was a bit more short of breath. Chest x-ray does show some fluid overload. She's been on and off of BiPAP. This morning she was on O2 nasal cannula at 3 L. The cardiothoracic practitioner thought she was a bit more short of breath I went and saw her. I looked at her chest x-ray. We asked her to go back on BiPAP at 14 and 5 and 40% and we also gave her Lasix 60 mg IV push. She seemed be doing a lot better now. She's not receiving any IV fluids. Chest x-ray does show fluid overload. Again the Lasix was given this morning. She was a bit to This morning. Breathing about 25 times a minute. No swapnil distress. In addition, she has a history of hypertension severe mitral regurgitation blood loss anemia following her open heart surgery, left subclavian artery stenosis paroxysmal atrial fibrillation GI bleed and obesity. Progress note dated 12/04/2017 67-year-old female, postop day #8, status post single-vessel bypass grafting and mitral valve replacement. The patient's overall situation is been reasonable. She seemed to do do better while she is on BiPAP therapy. When she is a bit more short of breath, she does poorly when she's not on BiPAP. Chest x-ray shows some fluid overload. She has some cephalization to the upper lobes. In addition, she is either consolidation atelectasis or infiltrates in the lower lobes. In addition, probably has some pleural effusions bilaterally. Currently she is on 7 L high flow. She's not receiving any IV fluids. When she is on BiPAP, she is on settings of 14 and 5 and 40%. She did receive some Lopressor for atrial fibrillation with RVR. Cardiothoracic surgery ask about antibiotics for possible pneumonia. Is not unreasonable to add some antibiotics to her regimen. She may have some pneumonia hiding in the lung spaces bilaterally. She isn't producing any phlegm. There's been no fever or chills. Other than that, she is doing reasonably well. Labs x-rays a medications are all reviewed. Progress note dated 12/20/2017 This is a 67-year-old female here in the hospital since November 25. The patient had a one-vessel bypass on the any mitral valve repair/replacement as well as a modified maze procedure on the . She was initially extubated on November 30 of BiPAP. When I left her last, which was on December 04, she was postop day #8 status post bypass grafting and mitral valve replacement. She seemed to do pretty well at that time on BiPAP therapy. Since that time, she's had a cardioversion on December 07 a dehiscence of her sternal wound on December 08 and a sister neck to me on December 10. She currently remains intubated. She has been on PSV 10 CPAP and yesterday she spent 10-12 hours on the settings. She apparently is going for a flap repair on December 21 which is tomorrow. She's getting saline IV at KVO and vital high protein at 40. Her vent settings include the assist control mode rate of 14 tidal volume 500 FiO2 40% PEEP of 5. Arterial blood gases show a PaO2 of 108 a PaCO2 of 45 and a pH of 7.47. I'm inclined not to wean her today given the fact that she'll be going for a flap repair tomorrow. In addition, her respiratory rates a bit high in her heart rate is high. We will go do a daily interruption of sedation and attempt a spontaneous breathing trial. Progress note dated 12/21/2017 This is a 67-year-old female here in the hospital since every . The patient had a one-vessel bypass on the and mitral valve replacement. She also had a modified maze procedure on the same day. She was initially extubated on eic 2 BiPAP. When I left her last, she was doing recently well on and off of BiPAP. Currently, the patient is going to the operating room today for a flap repair to be done by the plastic surgeon. The patient had a cardioversion on December 07, a dehiscence of her sternal incision on December 08, and a sternectomy on December 10. Currently, she is on the assist control mode with a tidal volume 500, a rate of 14, and FiO2 of 40% to be reduced down to 30%, and a PEEP of 5. Arterial blood gases show a PaO2 of 148, a PaCO2 of 36 and a pH of 7.49. The patient's on a saline IV at 20 mL an hour, propofol at 30 mics per kilogram per minute tube feeds which are on hold for the surgery. Again she is going to have a flap repair today. Chest x-ray shows similar changes to yesterday. Progress note dated 12/22/2017 67-year-old female who's been in the hospital since November 25. The patient had a one-vessel bypass grafting on the and mitral valve replacement. She also had a modified maze procedure on the same day. She was initially extubated on November 30 to BiPAP. The patient had also to complications after I saw her last including on the need for cardioversion on December 07, dehiscence of her sternal incision on December 08, and sternectomy on December 10. Yesterday, she had a flap repair done by one of the plastic surgeons. She is postop day #1 for that. This morning she was on the assist control mode rate of 14, tidal volume 500, FiO2 30%, and PEEP of 5. Her arterial blood gases show a PaO2 of 95 a PaCO2 of 39 and a pH of 7.49. At that time the patient was on propofol at 25 mcg/m, a saline IV at KVO and vital high protein at a rate of 30 with a goal of 40. The patient looks great today and we went ahead and extubated her to BiPAP. She is on 10 and 5 and 40%. Seemed be doing relatively well with that at the current time. Progress note dated 12/26/2017 67-year-old female who's been in the hospital since November 25. The patient had a one-vessel bypass grafting on the and a mitral valve replacement on that same day. She also had a modified maze procedure on the same day. She was initially extubated on November 30 to BiPAP. The patient was extubated again on December 22 reintubated on the and had a tracheostomy tube placed on December 24. In addition, she had a cardioversion on December 07 a wound dehiscence on December 08 and a sternectomy on December 10. She is status post flap repair postop day #5. Yesterday, she spent a fair amount of time on pressure support of 10 and CPAP of 5. Currently, she is on the ventilator. Her vent settings include the assist control mode with a rate of 20 tidal volume 400 FiO2 35% PEEP of 5. Arterial blood gases show a PaO2 of 107 a PaCO2 47 and a pH of 7.43. Her IV is dextrose at KVO. She's not getting any propofol. A Dobbhoff tube was placed 2 days ago and she's getting tube feeds through that. She is getting vital high protein at a rate of 40. Goal rate is yet to be calculated. Chest x-ray shows mild diffuse bilateral infiltrates. All in all, she has improved. Prognosis remains guarded still. Progress note dated 01/10/2018 67-year-old female who I last on December 26. She was admitted back on November 25 at which time she had a single-vessel bypass grafting and mitral valve repair. She's had a number of different complications. She also underwent a modified maze procedure on the same day. She was initially extubated on November 30 to BiPAP. She was extubated again on December 22 reintubated on the . On the , she had a tracheostomy tube placed. In addition, she had a cardioversion on December 07 of wound dehiscence on December 08 and a sternectomy on December 10. She is also status post flap repair. The patient does have a PEG tube in place as well done by one of the other cardiothoracic surgeons. The patient's currently still on the ventilator. She is on the assist control mode with a rate of 28 tidal volume 400 FiO2 35% and PEEP of 5. Up to the blood gases show a PaO2 of 102 a pCO2 42 and a pH of 7.47. She remains on vital high protein at a rate of 57 with a goal of 57 mL/h. Chest x-ray shows some mild fluid overload. The plan was to wait for her to be anticoagulated and then do a cardioversion on her. Hopefully that'll be done today or tomorrow. Subsequent to that, transfer to select specialty. Progress note dated 01/11/2018 67-year-old female who I saw last on January 10. She was admitted way back on November 25 at which time she had a single-vessel bypass grafting and mitral valve repair. She had a number different complications including extubation initially on November 30 and then extubation again on December 22 with reintubation again on December 23. On the , she had a tracheostomy tube placed. Subsequent to that she had a cardioversion on December 07 a wound dehiscence on December 08 and a sternum removal on December 10 the patient also has had a PEG tube placed and previously had a Dobbhoff feeding tube. Currently, she had a cardioversion on January 10. She apparently is going to be transferred to a specialized nursing facility later today. Her vent settings are the assist control mode rate of 20 tidal volume 400 FiO2 of 35% to be dropped to 30% and PEEP of 5. Arterial blood gases show a PaO2 of 110 a PaCO2 of 44 and a pH 7.46. She's not on any IV fluids and her nutrition includes a vital high protein at a goal of 57 mL per hour. Chest x-ray is stable and shows a touch of fluid overload. Objective - Vital Signs Vital signs: Vital Signs Temp 98.2 F 01/10/18 20:00 Pulse 91 01/11/18 08:09 Resp 19 01/11/18 07:00 BP 114/78 01/10/18 12:00 Pulse Ox 99 01/11/18 07:00 Intake & Output 01/10/18 01/11/18 01/11/18 18:59 06:59 18:59 Intake Total 582 951 60 Output Total 1428 615 50 Balance -846 336 10 Weight 99.7 kg 100.8 kg Intake: IV 36 36 3 Pressure Bag 36 36 3 Tube Feeding 456 855 57 Other 90 60 Output: Drainage 970 230 Medial Chest Incision - 350 Woundvac Right Abdomen 620 230 Urine 458 385 50 Other: Voiding Method Indwelling Catheter Indwelling Catheter ABP, PAP, CO, CI - Last Documented Arterial Blood Pressure 119/57 Pulmonary Artery Pressure 38/33 Cardiac Output 5.8 Cardiac Index 2.9 - Exam No acute distress, The patient's currently on the ventilator. She is awake and alert. HEENT examination is grossly unremarkable. Mucous membranes are moist. No oral lesions. Neck supple. Full range of motion. No adenopathy thyromegaly or neck vein distention. There is a midline tracheostomy. Cardiovascular examination reveals regular rhythm rate. S1-S2 normal. No S3 or S4. No discernible murmur noted. Lungs reveal very coarse bilateral breath sounds. Her sounds are equal bilaterally. No wheezes. A few scattered crackles. Abdomen soft bowel sounds are heard. No masses or tenderness. The PEG tube is noted. Extremities are intact. No cyanosis or clubbing. There is slight edema. Skin is without rash or lesion. Neurologic examination is difficult to assess, but she is awake and alert - Labs CBC & Chem 7: 01/11/18 04:55 01/11/18 04:55 Labs: Abnormal Lab Results - Last 24 Hours (Table) 01/10/18 01/10/18 01/11/18 Range/Units 12:22 22:50 04:55 WBC (3.8-10.6) k/uL RBC (3.80-5.40) m/uL Hgb (11.4-16.0) gm/dL Hct (34.0-46.0) % MCHC (31.0-37.0) g/dL RDW (11.5-15.5) % PT (9.0-12.0) sec INR (<1.2) ABG pH (7.35-7.45) ABG pO2 (83-108) mmHg ABG HCO3 (21-25) mmol/L ABG Total CO2 (19-24) mmol/L ABG O2 Saturation (94-97) % BUN 47 H (7-17) mg/dL Glucose 108 H (74-99) mg/dL POC Glucose (mg/dL) 103 H 112 H (75-99) mg/dL 01/11/18 01/11/18 01/11/18 Range/Units 04:55 04:55 05:06 WBC 14.5 H (3.8-10.6) k/uL RBC 2.82 L (3.80-5.40) m/uL Hgb 7.3 L (11.4-16.0) gm/dL Hct 25.0 L (34.0-46.0) % MCHC 29.1 L (31.0-37.0) g/dL RDW 21.5 H (11.5-15.5) % PT 34.1 H (9.0-12.0) sec INR 3.8 H (<1.2) ABG pH 7.46 H (7.35-7.45) ABG pO2 110 H (83-108) mmHg ABG HCO3 31 H (21-25) mmol/L ABG Total CO2 32 H (19-24) mmol/L ABG O2 Saturation 100.0 H (94-97) % BUN (7-17) mg/dL Glucose (74-99) mg/dL POC Glucose (mg/dL) (75-99) mg/dL 01/11/18 Range/Units 06:06 WBC (3.8-10.6) k/uL RBC (3.80-5.40) m/uL Hgb (11.4-16.0) gm/dL Hct (34.0-46.0) % MCHC (31.0-37.0) g/dL RDW (11.5-15.5) % PT (9.0-12.0) sec INR (<1.2) ABG pH (7.35-7.45) ABG pO2 (83-108) mmHg ABG HCO3 (21-25) mmol/L ABG Total CO2 (19-24) mmol/L ABG O2 Saturation (94-97) % BUN (7-17) mg/dL Glucose (74-99) mg/dL POC Glucose (mg/dL) 117 H (75-99) mg/dL Microbiology - Last 24 Hours (Table) 12/10/17 10:50 Fungal Culture - Final Chest 12/10/17 10:40 Fungal Culture - Final Chest 12/10/17 10:45 Fungal Culture - Final Chest Assessment and Plan Assessment: Assessment Status post one-vessel bypass grafting and mitral valve replacement Postoperative respiratory failure with failure to wean, with extubation occurring on 11/30/2017, and subsequent extubation on 12/22/2017. She was reintubated on December 23, and had a tracheostomy performed on 12/24/2017 Status post cardioversion on December 07, and January 10. Status post wound dehiscence on December 08 Status post sternectomy on December 10 Status post , flap repair on 12/21/2017 Reintubation and mechanical ventilation with failure to wean Chest x-ray evidence of fluid overload Acute blood loss anemia requiring blood transfusion History of hypertension History of severe mitral regurgitation History of left subclavian stenosis Paroxysmal atrial fibrillation History of GI bleed Obesity Possible aspiration with aspiration pneumonia Plan: Plan dated 11/29/2017 I will make some vent changes today including repeat increasing the rate from 12 -20, dropping the time of I'm down from 550 mL down to 400 mL and also reducing the FiO2 40%. We'll see if we can wean her off the norepinephrine holding propofol and do a daily eruption of sedation to evaluate for spontaneous breathing trial. Microbiology is negative. Labs x-rays and medications all reviewed. Prognosis is guarded. Additional recommendations and suggestions are forthcoming. I believe she would benefit from some diuretics. Blood gases are reviewed. Plan dated 11/30/2017 The patient will again have a daily eruption of sedation with a spontaneous breathing trial. She still remains on a number of different IV medications including norepinephrine, fall, Primacor. Arterial blood gases today are very reasonable. Her vent settings were adjusted yesterday. She's getting nourishment. We'll continue to follow closely. Labs x-rays a medications are reviewed. Hopeful improvement in the next day or so and eventual extubation. Plan dated 11/23/2017 The patient seems to be doing a bit better. Her chest x-ray certainly improved. She'll receive 1 unit of blood. She feels better. She still on BiPAP. She has significant edema throughout. Chest x-ray is improved. I do agree with 1 unit of blood followed by Lasix. We'll continue to follow closely. Medications x-rays and labs are reviewed. Plan dated 12/02/2017 The patient will come off the BiPAP morning go back on nasal O2. Speech pathology was consulted. Chest x-ray looks about the same or slightly better. Still showing a bit of fluid overload. In addition, a Doppler of the right upper extremity was negative for DVT. The patient otherwise seems be doing reasonably well. We'll continue to follow. She is on Primacor and 0.2 mics per kilogram per minute and a half normal saline IV at KVO. BiPAP settings are 14/5 and 40%. Critical care time 34 minutes The patient is doing better after the BiPAP was placed on her. The patient also received Lasix 60 mg IV push. The patient's chest x-ray labs and medications are all reviewed. She's not receiving any additional fluid. We'll continue to follow. Prognosis is guarded. Critical care time 34 minutes. Plan dated 12/04/2017 The patient seemed be doing about the same as she was yesterday. Chest x-ray, in my opinion still shows evidence of fluid overload. She has cephalization and bilateral pleural effusions. Is a possibility she could have pneumonia. She's not producing any phlegm. She's been afebrile. I will add some Zosyn to her regimen. It certainly empiric. She should spend some time on BiPAP as well as a nasal O2. She seemed to do better on the BiPAP at 14 and 5 and 40%. She did have to receive some Lopressor for atrial fibrillation and RVR. I'm sure that's contributing to her shortness of breath as well. She does not have a lot of reserve. Prognosis is guarded. Plan dated 12/20/2017 I'm sorry to see that the patient still here in the ICU. It appears the patient 's had a number of different complications since I saw her last on December 04 including but not limited to cardioversion sternal dehiscence neck to me and anticipated flat repair tomorrow. The patient will be given a daily eruption of sedation and a spontaneous breathing trial. I'm not hopeful given her chronic illness for the current time. Additional recommendations and suggestions are forthcoming. In my opinion, we'll need a tracheostomy. We'll continue to follow. Prognosis is guarded. Meds labs and x-rays are all reviewed. Critical care time 31 minutes Plan dated 12/21/2017 The patient down is going to go to the operating room today for a flap repair by the plastic surgeon. No weaning today. Overall prognosis remains guarded. Labs x-rays a medications are all reviewed. We will continue to follow the patient and provide full supportive care with hopeful full recovery. Critical care time 30 minutes Plan dated 12/22/2017 The patient seemed be doing relatively well. Her weaning parameters were reasonably good. She passed her cuff leak. We went ahead and extubated her to BiPAP at 10 and 5 and 40%. We'll continue to watch her carefully. Her chest x- ray looked improved. There was small effusions bilaterally. We'll continue to follow. Prognosis is guarded. Critical care time is 33 minutes Plan dated 12/26/2017 The patient be placed back on PSV and CPAP at 10 and 5 respectively. She is on 35%. PaO2 is excellent. The patient's getting nourishment with a vital high protein. Were using the Dobbhoff tube for that. Blood gases are good. We'll continue to follow. General clinical status is improved. No additional recommendations are made. Labs x-rays a medications are reviewed. Prognosis is guarded. Critical care time 33 minutes. Plan dated 01/10/2018 The patient remains on the ventilator. The plan is to go ahead and do a cardioversion on her. That will take place either later today or tomorrow. She is currently properly anticoagulated. In addition, the plan at that point will be to transfer her to select specialty. Apparently regularly in his have been made. Since I saw her last, the Dobbhoff tube has been removed and a PEG tube was placed. I've spoken to the family and also the cardiothoracic surgery about her. Additional recommendations and suggestions are forthcoming. Prognosis is guarded. Critical care time 34 minutes Plan dated 01/11/2018 The patient remains on the mechanical ventilator. She did have successful cardioversion yesterday. She remains in normal sinus rhythm. The patient will be discharged to a specialized nursing facility later today. Additional recommendations and suggestions are forthcoming. Prognosis is guarded. We'll continue nutrition and the other medications as ordered. We'll continue to follow. Critical care time is 33 minutes Time with Patient: Greater than 30
[2018-01-11] MEDS: PANTOPRAZOLE 40 MG TABLET PO SCH (09:24)
[2018-01-11] MEDS: ATORVASTATIN 40 MG TAB PO SCH (09:24)
[2018-01-11] MEDS: MEROPENEM 1 GM in SODIUM CHLORIDE 0.9% 100 ML IVPB SCH (09:24)
[2018-01-11] MEDS: ASPIRIN 81 MG PO SCH (09:24)
[2018-01-11] MEDS: METOPROLOL TARTRATE 50 MG TAB PEG/G-TUBE SCH (09:26)
[2018-01-11] MEDS: LACTOBACILLUS ACIDOPH & BULGAR 1 EACH PACKET PO SCH (09:26)
[2018-01-11] MEDS: SILVER sulfADIAZINE Cream 400 GM 1 APPLIC APPLIC TOPICAL SCH (09:27)
--- NOTE | 2018-01-11 10:50 | P.PN ---
Subjective Progress Note Date: 01/11/18 Principal diagnosis: Status post open heart This is a pleasant 67-year-old female patient who sees Dr. Crawley as an outpatient who underwent an open heart surgery where she had CABG 1 associated with mitral valve replacement and maze procedure, with a postoperative course was complex and complicated by respiratory failure, chest incision dehiscence, where the patient did have to go to the OR again and have another surgery. Currently the patient is in chronic respiratory failure and she does have a tracheostomy hemodynamically she continues to have atrial flutter with heart rate around 108 beats per minute.The hemoglobin continues to be around 7. The patient did undergo a cardioversion yesterday. She has been maintaining normal sinus mechanism. Objective - Vital Signs Vital signs: Vital Signs Temp 98.2 F 01/11/18 08:00 Pulse 92 01/11/18 10:00 Resp 20 01/11/18 10:00 BP 114/78 01/10/18 12:00 Pulse Ox 97 01/11/18 10:00 Intake & Output 01/10/18 01/11/18 01/11/18 18:59 06:59 18:59 Intake Total 582 951 60 Output Total 1428 615 50 Balance -846 336 10 Weight 99.7 kg 100.8 kg Intake: IV 36 36 3 Pressure Bag 36 36 3 Tube Feeding 456 855 57 Other 90 60 Output: Drainage 970 230 Medial Chest Incision - 350 Woundvac Right Abdomen 620 230 Urine 458 385 50 Other: Voiding Method Indwelling Catheter Indwelling Catheter ABP, PAP, CO, CI - Last Documented Arterial Blood Pressure 119/63 Pulmonary Artery Pressure 38/33 Cardiac Output 5.8 Cardiac Index 2.9 - Constitutional General appearance: Present: no acute distress - Respiratory Respiratory: bilateral: diminished - Cardiovascular Rhythm: regular Heart sounds: normal: S1, S2 - Labs CBC & Chem 7: 01/11/18 04:55 01/11/18 04:55 Labs: Abnormal Lab Results - Last 24 Hours (Table) 01/10/18 01/10/18 01/11/18 Range/Units 12:22 22:50 04:55 WBC (3.8-10.6) k/uL RBC (3.80-5.40) m/uL Hgb (11.4-16.0) gm/dL Hct (34.0-46.0) % MCHC (31.0-37.0) g/dL RDW (11.5-15.5) % PT (9.0-12.0) sec INR (<1.2) ABG pH (7.35-7.45) ABG pO2 (83-108) mmHg ABG HCO3 (21-25) mmol/L ABG Total CO2 (19-24) mmol/L ABG O2 Saturation (94-97) % BUN 47 H (7-17) mg/dL Glucose 108 H (74-99) mg/dL POC Glucose (mg/dL) 103 H 112 H (75-99) mg/dL 01/11/18 01/11/18 01/11/18 Range/Units 04:55 04:55 05:06 WBC 14.5 H (3.8-10.6) k/uL RBC 2.82 L (3.80-5.40) m/uL Hgb 7.3 L (11.4-16.0) gm/dL Hct 25.0 L (34.0-46.0) % MCHC 29.1 L (31.0-37.0) g/dL RDW 21.5 H (11.5-15.5) % PT 34.1 H (9.0-12.0) sec INR 3.8 H (<1.2) ABG pH 7.46 H (7.35-7.45) ABG pO2 110 H (83-108) mmHg ABG HCO3 31 H (21-25) mmol/L ABG Total CO2 32 H (19-24) mmol/L ABG O2 Saturation 100.0 H (94-97) % BUN (7-17) mg/dL Glucose (74-99) mg/dL POC Glucose (mg/dL) (75-99) mg/dL 01/11/18 Range/Units 06:06 WBC (3.8-10.6) k/uL RBC (3.80-5.40) m/uL Hgb (11.4-16.0) gm/dL Hct (34.0-46.0) % MCHC (31.0-37.0) g/dL RDW (11.5-15.5) % PT (9.0-12.0) sec INR (<1.2) ABG pH (7.35-7.45) ABG pO2 (83-108) mmHg ABG HCO3 (21-25) mmol/L ABG Total CO2 (19-24) mmol/L ABG O2 Saturation (94-97) % BUN (7-17) mg/dL Glucose (74-99) mg/dL POC Glucose (mg/dL) 117 H (75-99) mg/dL Microbiology - Last 24 Hours (Table) 12/10/17 10:50 Fungal Culture - Final Chest 12/10/17 10:40 Fungal Culture - Final Chest 12/10/17 10:45 Fungal Culture - Final Chest Assessment and Plan Assessment: Assessment #1 respiratory failure #2 status post open heart and status post CABG and mitral valve replacement #3 persistent atrial flutter and status post cardioversion #4 congestive heart failure #5 sternal wound infection #6 peripheral vascular disease and known left subclavian stenosis #7 multiple comorbid conditions Plan #1 continue the current medical treatment #2 the patient is going to select specialty later on today.
[2018-01-11] MEDS ORDERED: METOPROLOL TARTRATE 50 MG TAB PO STA (11:05)
[2018-01-11] MEDS ORDERED: FUROSEMIDE 40 MG TAB PO SCH (11:15)
--- NOTE | 2018-01-11 11:36 | P.DS ---
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 Consult: post cardiac surgery Do you want consulting provider notified?: Yes Consult Physician Routine Consulting Provider: Amaury Lugo Consult Reason/Comments: medical management Do you want consulting provider notified?: Yes 12/01/17 13:22 Consult Physician Routine Consulting Provider: Shaquille Hart Consult Reason/Comments: Inpatient rehab Do you want consulting provider notified?: Yes 12/09/17 09:40 Consult Physician Routine Consulting Provider: Jluis Olivera Consult Reason/Comments: wound on back, gram neg in sternal incision Do you want consulting provider notified?: Yes 12/10/17 12:08 Consult Physician Routine Consulting Provider: Keegan Krause Consult Reason/Comments: Sternal flap Do you want consulting provider notified?: Yes 12/28/17 11:57 Consult Physician Routine Consulting Provider: Erik Lofton Consult Reason/Comments: possible ileus, possible partial obstruction Do you want consulting provider notified?: Yes Consult Physician Routine Consulting Provider: John Garcia Consult Reason/Comments: ICU management Do you want consulting provider notified?: Yes, Notify in am 01/04/18 11:06 Consult Physician Routine Consulting Provider: Arjun Aldridge Consult Reason/Comments: PEG tube placement Do you want consulting provider notified?: Already Contacted Primary care physician: Elton Madden - Discharge Diagnosis(es) (1) Acute blood loss anemia Current Visit: Yes Status: Acute (2) CAD (coronary artery disease) Current Visit: Yes Status: Chronic (3) Hyperlipidemia Current Visit: Yes Status: Chronic (4) Hypertension Current Visit: Yes Status: Chronic (5) Severe mitral regurgitation Current Visit: Yes Status: Chronic (6) Stenosis of left subclavian artery Current Visit: Yes Status: Chronic (7) Paroxysmal atrial fibrillation Current Visit: No Status: Resolved (8) History of GI bleed Current Visit: No Status: Resolved (9) Family history of coronary artery disease Current Visit: Yes Status: Chronic (10) Ileus, postoperative Current Visit: Yes Status: Acute (11) Pressure ulcer of contiguous region involving back and buttock, stage 3 Current Visit: Yes Status: Acute (12) Sternal wound dehiscence Current Visit: Yes Status: Acute Hospital Course: FINAL DIAGNOSIS: 1. Severe mitral valve regurgitation 2. Coronary artery disease 3. Paroxysmal atrial fibrillation on Coumadin for anticoagulation 4. Previous hospitalization for lower GI bleed, duodenal ulcer 5. History of left subclavian stenosis with stent placement in 2015, recent discovery of critical re-in-stent stenosis 6. Previous tobacco dependence with preoperative FEV1 60% of predicted 7. History of hypertension 8. History of hyperlipidemia 9. Gallbladder disease 10. Family history of heart disease 11. Preoperative nasal swab positive for MRSA 10. Preoperative anemia 11. Intraoperative left ventricular wall tear, an unexpected but potential outcome of surgery 12. Acute blood loss anemia, an expected outcome given the patient's preoperative anemia and intraoperative bleeding 13. Postoperative prolonged mechanical ventilation, an unexpected but potential outcome of surgery given the extensive nature of her perioperative course 14. Sternal incision dehiscence, possible outcome of surgery given the patient' s obesity, nutrition service, and debility 15. Postoperative left lower lobe collapse secondary to mucous plugging, an unexpected but potential outcome of surgery 16. Postoperative ileus, an unexpected but potential outcome of surgery PRINCIPAL PROCEDURE: 1. Elective mitral valve replacement using a 25 mm Ribera bioprosthetic tissue valve 2. Coronary artery bypass grafting 1, reverse saphenous vein graft to the obtuse marginal artery 3. Maze procedure 4. Endoscopic harvesting of the right greater saphenous vein 5. Epi-aortic ultrasound 6. Intraoperative transesophageal echocardiogram 7. Ligation of the left atrial appendage using a 40 mm AtriClip 8. Placement of a #8 Shiley nonfenestrated tracheostomy tube 9. Right rectus abdominous muscle flap closure, open sternal wound. Closure of sternal wound and muscle flap with a skin graft substitute, 238 cm. Implantation of reconstructive graft for closure of abdominal wall wound, 300 cm 10. Excisional sternal wound debridement with placement of wound VAC 11. Bronchoscopy and bronchial alveolar lavage of the left lower lobe and extraction of mucous plug 12. Placement of percutaneous endoscopic gastrostomy tube 13. DC cardioversion to normal sinus rhythm HISTORY OF PRESENT ILLNESS: This is a 67-year-old female patient who follows with Dr. Elton Mcfarland on an outpatient basis. She presented to the emergency room in October 2017 with complaints of fatigued, and shortness of breath over the previous month, along with intermittent chest pain which resolved with rest. She was noted to have a GI bleed and was admitted for treatment. Apparently she had been diagnosed in September with mitral valve regurgitation and atrial fibrillation for which she had been placed on Coumadin , along with performance of a heart catheterization demonstrating 70% lesion in her circumflex artery . She already had an appointment with Dr. Back from cardiothoracic surgery secondary to her mitral valve regurgitation and CAD, so we were consulted while she was in the hospital. We completed some of her preoperative testing and an office appointment was made for the patient to follow-up with Dr. Back once she was discharged. At the time of her follow-up appointment she reported no further evidence of GI bleeding, however her shortness of breath with activity was persistent. Of note, she also had a history of left subclavian stenosis with stent placement and re-in-stent stenosis, however Dr. Carreno felt treatment could be delayed until after her heart surgery. Surgical intervention was discussed in detail with the patient and her family, including the usual preoperative course and the fact that the patient would have to be off Coumadin prior to surgery. All risks and benefits were explained, and consent was obtained to proceed with surgery. HOSPITAL COURSE: The patient was brought to the hospital on 11/25/2017, taken to the preoperative area, prepared in the usual fashion, and subsequently taken to the operating room where Dr. Back performed an elective mitral valve replacement using a 25 mm Ribera bioprostatic tissue valve, coronary artery bypass grafting 1, reverse saphenous vein graft to the obtuse marginal artery, Maze procedure, endoscopic harvesting of the right greater saphenous vein, epi- aortic ultrasound, intraoperative transesophageal echocardiogram, and ligation of the left atrial appendage using a 40 Mm AtriClip. During the procedure, a left ventricular wall tear was noted which produced intraoperative bleeding, which was treated accordingly. Upon completion of surgery the patient was transferred to the cardiovascular intensive care unit where she was recovered and monitored hemodynamically. She had a turbulent postoperative course with acute blood loss anemia requiring transfusion of multiple units of packed red blood cells, prolonged mechanical ventilation with placement of a tracheostomy tube, sternal incision dehiscence with flap repair and wound VAC therapy, left lower lobe lung collapse with mucous plugging and subsequent bronchoscopy, and postoperative ileus which resolved as well as placement of a percutaneous endoscopic gastrostomy tube. She remained in persistent atrial fibrillation/ flutter requiring cardioversion once properly anticoagulated after her multiple surgeries. She remained intubated, but did tolerate some weaning. All lines, tubes, and drips were discontinued when appropriate. Her oxygen requirement on the ventilator was titrated down, physical therapy continued to work with her, and she was eventually ready to be discharged to [facility] hospital on postop day #47 for ventilator management and aggressive physical therapy. She received written and verbal instruction regarding medications, activity restrictions, signs and symptoms requiring physician notification, and follow- up appointments. COMPLICATIONS: The patient experienced postoperative complications of acute blood loss anemia, prolonged mechanical ventilation, sternal incision dehiscence , left lower lobe collapse secondary to mucous plugging, ileus, and continued atrial fibrillation/flutter, all of which were treated accordingly. Plan - Discharge Summary Discharge Rx Participant: Yes New Discharge Prescriptions: No Action Escitalopram [Lexapro] 10 mg PO HS Aspirin EC [Ecotrin Low Dose] 81 mg PO HS Atorvastatin [Lipitor] 20 mg PO DAILY #30 tab Furosemide [Lasix] 20 mg PO DAILY #30 tab Metoprolol Tartrate [Lopressor] 12.5 mg PO BID Amiodarone [Cordarone] 200 mg PO DAILY Warfarin [Coumadin] 3 mg PO DAILY #30 tab Aspirin 325 mg PO ONCE Discharge Medication List Escitalopram [Lexapro] 10 mg PO HS 02/01/14 [History] Aspirin EC [Ecotrin Low Dose] 81 mg PO HS 02/19/16 [History] Atorvastatin [Lipitor] 20 mg PO DAILY #30 tab 09/04/17 [Rx] Furosemide [Lasix] 20 mg PO DAILY #30 tab 09/04/17 [Rx] Metoprolol Tartrate [Lopressor] 12.5 mg PO BID 09/17/17 [History] Amiodarone [Cordarone] 200 mg PO DAILY 10/12/17 [History] Warfarin [Coumadin] 3 mg PO DAILY #30 tab 10/14/17 [Rx] Aspirin 325 mg PO ONCE 11/25/17 [History] Follow up Appointment(s)/Referral(s): Lisbet Rutledge MD [STAFF PHYSICIAN] - 1 Week (Please make follow up appointment upon discharge from [facility]) Elias Crawley MD [STAFF PHYSICIAN] - 1 Week (Please make follow up appointment upon discharge from [facility]) Dion Back MD [STAFF PHYSICIAN] - 02/11/18 10:00 am Elton Madden DO [Primary Care Provider] - 1 Week (please make follow up appointment upon discharge from [facility]) Ambulatory/Diagnostic Orders: Complete Blood Count w/diff [LAB.AMB] Time Frame: 3 Days, Location: Determined By Patient Comprehensive Metabolic Panel [LAB.AMB] Time Frame: 3 Days, Location: Determined By Patient Prothrombin Time INR [LAB.AMB] Location: Determined By Patient
[2018-01-11 12:24] LABS: Glucose,Whole Blood 118 mg/dL (75-99)
[2018-01-11] MEDS: ALPRAZolam 0.25 MG TAB PO PRN (12:24)
[2018-01-11 12:37] VITALS: TEMP 98.1
[2018-01-11 13:37] VITALS: PULSE 87
[2018-01-11 14:16] VITALS: RESP 24
[2018-01-11] MEDS ORDERED: METOPROLOL TARTRATE 50 MG TAB PEG/G-TUBE SCH (21:00)
--- NOTE | 2018-01-11 23:26 | P.PN ---
Subjective Progress Note Date: 01/10/18 Principal diagnosis: Status post mitral wall replacement and CABG Interval history: This is 67-year-old female status post CABG, mitral valve replacement, status post multiple blood products transfusions. Remains vent dependent with tracheostomy 35% FiO2/+5 of PEEP. 01/02/2018 Patient is awake alert and remained on mechanical ventilator. Patient is afebrile. Still having it fibrillation with rapid regular rate. Continued on wound VAC and also having right abdominal HENRI drain. Patient was admitted back on NG tube feeding and is tolerating slowly. TPN is on hold. Patient is being continued on antibiotics in the form of meropenem and vancomycin. Continued on Cardizem metoprolol and amiodarone. Chest x-ray showed increased pulmonary vascular congestion and cardiomegaly. WBC 12.0. C. diff negative. Renal function normalized. No fever no chills. 01/10/2018 Patient is awake and oriented. No fever no chills. No complaints of chest pain or shortness of breath. Patient is to having wound VAC for sternal wound. Patient is adequately anticoagulated and cardiology is planning for cardioversion today. Planning for long-term care facility in next 1-2 days. Patient will be started on PEG tube feeding. Duboff tube will be removed. All other review of systems negative except the above current medications reviewed. Objective - Vital Signs Vital signs: Vital Signs Temp 98.5 F 01/10/18 16:00 Pulse 92 01/10/18 16:08 Resp 22 01/10/18 16:08 BP 114/78 01/10/18 12:00 Pulse Ox 99 01/10/18 16:00 Intake & Output 01/09/18 01/10/18 01/10/18 18:59 06:59 18:59 Intake Total 1338 1078 462 Output Total 271 460 7862 Balance 468 338 -871 Weight 102.8 kg 99.7 kg 99.7 kg Intake: IV 480 133 30 Dextrose 5%-0.45% NaCl 1, 0 000 ml @ 10 mls/hr IV . Q24H [facility] Rx#:[id number] Meropenem 1 gm In Sodium 200 100 Chloride 0.9% 100 ml @ 200 mls/hr IVPB Q8HR [facility] Rx#:[id number] Pressure Bag 30 33 30 Vancomycin 1,500 mg In 250 Sodium Chloride 0.9% 250 ml @ 125 mls/hr IVPB Q36H [facility] Rx#:[id number] Tube Feeding 798 855 342 Other 60 90 90 Output: Drainage 430 280 930 Medial Chest Incision - 350 Woundvac Right Abdomen 430 280 580 Urine 440 460 403 Other: Voiding Method Indwelling Catheter Indwelling Catheter Indwelling Catheter ABP, PAP, CO, CI - Last Documented Arterial Blood Pressure 112/57 Pulmonary Artery Pressure 38/33 Cardiac Output 5.8 Cardiac Index 2.9 - Exam PHYSICAL EXAMINATION: Patient is lying in the bed comfortably, no acute distress, awake alert and oriented.. HEENT: Normocephalic. Neck is supple. Pupils reactive. Nostrils clear. Oral cavity is moist. Ears reveal no drainage. Neck reveals no JVD, carotid bruits, or thyromegaly. CHEST EXAMINATION: Sternal wound VAC place. Trachea is central. Tracheostomy tube in place Symmetrical expansion. Lung [place] clear to auscultation and percussion. CARDIAC: Normal S1, S2 with no gallops. No murmurs ABDOMEN: Soft. Bowel sounds normal. No organomegaly. No abdominal bruits. PEG tube in place. Extremities: 1+ edema. No clubbing or cyanosis Neurologically awake, alert, oriented x3 with well-coordinated movements. No focal deficits noted Skin: No rash or skin lesions. Psychiatric: [id number]. Could not be assessed completely Musculoskeletal: No joint swelling or deformity. Normal range of motion. - Labs CBC & Chem 7: 01/11/18 04:55 01/11/18 04:55 Labs: Abnormal Lab Results - Last 24 Hours (Table) 01/09/18 01/10/18 01/10/18 Range/Units 18:16 04:40 04:40 WBC (3.8-10.6) k/uL RBC (3.80-5.40) m/uL Hgb (11.4-16.0) gm/dL Hct (34.0-46.0) % MCHC (31.0-37.0) g/dL RDW (11.5-15.5) % PT 32.4 H (9.0-12.0) sec INR 3.6 H (<1.2) ABG pH (7.35-7.45) ABG HCO3 (21-25) mmol/L ABG Total CO2 (19-24) mmol/L ABG O2 Saturation (94-97) % Carbon Dioxide 31 H (22-30) mmol/L BUN 45 H (7-17) mg/dL Glucose 106 H (74-99) mg/dL POC Glucose (mg/dL) 103 H (75-99) mg/dL 01/10/18 01/10/18 01/10/18 Range/Units 04:40 05:41 08:25 WBC 12.2 H (3.8-10.6) k/uL RBC 2.84 L (3.80-5.40) m/uL Hgb 7.6 L (11.4-16.0) gm/dL Hct 25.1 L (34.0-46.0) % MCHC 30.4 L (31.0-37.0) g/dL RDW 21.5 H (11.5-15.5) % PT (9.0-12.0) sec INR (<1.2) ABG pH 7.48 H (7.35-7.45) ABG HCO3 31 H (21-25) mmol/L ABG Total CO2 32 H (19-24) mmol/L ABG O2 Saturation 99.2 H (94-97) % Carbon Dioxide (22-30) mmol/L BUN (7-17) mg/dL Glucose (74-99) mg/dL POC Glucose (mg/dL) 102 H (75-99) mg/dL 01/10/18 Range/Units 12:22 WBC (3.8-10.6) k/uL RBC (3.80-5.40) m/uL Hgb (11.4-16.0) gm/dL Hct (34.0-46.0) % MCHC (31.0-37.0) g/dL RDW (11.5-15.5) % PT (9.0-12.0) sec INR (<1.2) ABG pH (7.35-7.45) ABG HCO3 (21-25) mmol/L ABG Total CO2 (19-24) mmol/L ABG O2 Saturation (94-97) % Carbon Dioxide (22-30) mmol/L BUN (7-17) mg/dL Glucose (74-99) mg/dL POC Glucose (mg/dL) 103 H (75-99) mg/dL Microbiology - Last 24 Hours (Table) 12/10/17 10:50 Fungal Culture - Final Chest 12/10/17 10:40 Fungal Culture - Final Chest 12/10/17 10:45 Fungal Culture - Final Chest Assessment and Plan Assessment: 1. Status post CABG with mitral valve replacement 2 persistent atrial flutter. Cardiology planning for cardioversion again 2. Acute blood loss anemia with massive blood transfusions postoperatively, in a patient with history of GI bleed. Hemoglobin stable 3. Hypertension 4. Left subclavian stenosis 5. Proximal atrial fibrillation/flutter status post cardioversion with recurrence of atrial fibrillation 6. Acute Hypoxic respiratory failure, Re intubated x2. Status post tracheostomy 7. Obesity, BMI 41.6 8. S/P PICC line placement 9. 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 Acute UTI Serratia marcescens, E. coli 11. Bilateral pleural effusions, improved with diuretics. Possible aspiration pneumonia, possible fluid overload. 12. Sternal wound debridement, culture growing Serratia marcescens, status post wound VAC. Status post sternal flap grafting. 13. Pressure ulceration of back and buttocks, stage III 14. Diarrhea, ruling out C. difficile colitis. 15. Status post bronchoscopy with left lower lobe mucous plug discovered 16. ileus. Improved. Started on NG tube feeding. TPN on hold Plan: Patient will be continued on Cardizem, amiodarone and beta krunal for better heart rate control. Continue with antibiotics. Continue with aspirin statins. Continue the wound care and follow-up culture reports. Patient is still on mechanical ventilation. Follow up closely. Further recommendations based on the clinical course. Prognosis is guarded with multiple medical problems and cold conditions. Pulmonary and cardiology and ID is following. Time with Patient: Greater than 30
--- NOTE | 2018-01-11 23:29 | P.PN ---
Subjective Progress Note Date: 01/11/18 Principal diagnosis: Status post mitral wall replacement and CABG Interval history: This is 67-year-old female status post CABG, mitral valve replacement, status post multiple blood products transfusions. Remains vent dependent with tracheostomy 35% FiO2/+5 of PEEP. 01/02/2018 Patient is awake alert and remained on mechanical ventilator. Patient is afebrile. Still having it fibrillation with rapid regular rate. Continued on wound VAC and also having right abdominal HENRI drain. Patient was admitted back on NG tube feeding and is tolerating slowly. TPN is on hold. Patient is being continued on antibiotics in the form of meropenem and vancomycin. Continued on Cardizem metoprolol and amiodarone. Chest x-ray showed increased pulmonary vascular congestion and cardiomegaly. WBC 12.0. C. diff negative. Renal function normalized. No fever no chills. 01/10/2018 Patient is awake and oriented. No fever no chills. No complaints of chest pain or shortness of breath. Patient is to having wound VAC for sternal wound. Patient is adequately anticoagulated and cardiology is planning for cardioversion today. Planning for long-term care facility in next 1-2 days. Patient will be started on PEG tube feeding. Duboff tube will be removed. 01/11/2018 Patient had a cardioversion on January 10. Currently maintained on sinus rhythm. She apparently is going to be transferred to a specialized nursing facility later today. Her vent settings are the assist control mode rate of 20 tidal volume 400 FiO2 of 35% to be dropped to 30% and PEEP of 5. Arterial blood gases show a PaO2 of 110 a PaCO2 of 44 and a pH 7.46. She's not on any IV fluids and her nutrition includes a vital high protein at a goal of 57 mL per hour. Chest x-ray is stable and shows a touch of fluid overload. All other review of systems negative except the above current medications reviewed. Objective - Vital Signs Vital signs: Vital Signs Temp 98.1 F 01/11/18 12:00 Pulse 87 01/11/18 14:00 Resp 24 01/11/18 14:00 BP 114/78 01/10/18 12:00 Pulse Ox 98 01/11/18 14:00 Intake & Output 01/11/18 01/11/18 01/12/18 06:59 18:59 06:59 Intake Total 951 767 Output Total 615 995 Balance 336 -228 Weight 100.8 kg Intake: IV 36 221 Meropenem 1 gm In Sodium 200 Chloride 0.9% 100 ml @ 200 mls/hr IVPB Q8HR [facility] Rx#:[id number] Pressure Bag 36 21 Tube Feeding 855 456 Other 60 90 Output: Drainage 230 400 Right Abdomen 230 400 Urine 385 595 Other: Voiding Method Indwelling Catheter Indwelling Catheter # Voids 1 ABP, PAP, CO, CI - Last Documented Arterial Blood Pressure 120/66 Pulmonary Artery Pressure 38/33 Cardiac Output 5.8 Cardiac Index 2.9 - Exam PHYSICAL EXAMINATION: Patient is lying in the bed comfortably, no acute distress, awake alert and oriented.. HEENT: Normocephalic. Neck is supple. Pupils reactive. Nostrils clear. Oral cavity is moist. Ears reveal no drainage. Neck reveals no JVD, carotid bruits, or thyromegaly. CHEST EXAMINATION: Sternal wound VAC place. Trachea is central. Tracheostomy tube in place Symmetrical expansion. Lung l[place]ig[place] clear to auscultation and percussion. CARDIAC: Normal S1, S2 with no gallops. No murmurs ABDOMEN: Soft. Bowel sounds normal. No organomegaly. No abdominal bruits. PEG tube in place. Extremities: 1+ edema. No clubbing or cyanosis Neurologically awake, alert, oriented x3 with well-coordinated movements. No focal deficits noted Skin: No rash or skin lesions. Psychiatric: [id number]. Could not be assessed completely Musculoskeletal: No joint swelling or deformity. Normal range of motion. - Labs CBC & Chem 7: 01/11/18 04:55 01/11/18 04:55 Labs: Abnormal Lab Results - Last 24 Hours (Table) 01/10/18 01/11/18 01/11/18 Range/Units 22:50 04:55 04:55 WBC (3.8-10.6) k/uL RBC (3.80-5.40) m/uL Hgb (11.4-16.0) gm/dL Hct (34.0-46.0) % MCHC (31.0-37.0) g/dL RDW (11.5-15.5) % PT 34.1 H (9.0-12.0) sec INR 3.8 H (<1.2) ABG pH (7.35-7.45) ABG pO2 (83-108) mmHg ABG HCO3 (21-25) mmol/L ABG Total CO2 (19-24) mmol/L ABG O2 Saturation (94-97) % BUN 47 H (7-17) mg/dL Glucose 108 H (74-99) mg/dL POC Glucose (mg/dL) 112 H (75-99) mg/dL 01/11/18 01/11/18 01/11/18 Range/Units 04:55 05:06 06:06 WBC 14.5 H (3.8-10.6) k/uL RBC 2.82 L (3.80-5.40) m/uL Hgb 7.3 L (11.4-16.0) gm/dL Hct 25.0 L (34.0-46.0) % MCHC 29.1 L (31.0-37.0) g/dL RDW 21.5 H (11.5-15.5) % PT (9.0-12.0) sec INR (<1.2) ABG pH 7.46 H (7.35-7.45) ABG pO2 110 H (83-108) mmHg ABG HCO3 31 H (21-25) mmol/L ABG Total CO2 32 H (19-24) mmol/L ABG O2 Saturation 100.0 H (94-97) % BUN (7-17) mg/dL Glucose (74-99) mg/dL POC Glucose (mg/dL) 117 H (75-99) mg/dL 01/11/18 Range/Units 12:22 WBC (3.8-10.6) k/uL RBC (3.80-5.40) m/uL Hgb (11.4-16.0) gm/dL Hct (34.0-46.0) % MCHC (31.0-37.0) g/dL RDW (11.5-15.5) % PT (9.0-12.0) sec INR (<1.2) ABG pH (7.35-7.45) ABG pO2 (83-108) mmHg ABG HCO3 (21-25) mmol/L ABG Total CO2 (19-24) mmol/L ABG O2 Saturation (94-97) % BUN (7-17) mg/dL Glucose (74-99) mg/dL POC Glucose (mg/dL) 118 H (75-99) mg/dL Assessment and Plan Assessment: 1. Status post CABG with mitral valve replacement 2 persistent atrial flutter. Status post cardioversion again on 01/10/2018 2. Acute blood loss anemia with massive blood transfusions postoperatively, in a patient with history of GI bleed. Hemoglobin stable 3. Hypertension 4. Left subclavian stenosis 5. Proximal atrial fibrillation/flutter status post cardioversion with recurrence of atrial fibrillation 6. Acute Hypoxic respiratory failure, Re intubated x2. Status post tracheostomy 7. Obesity, BMI 41.6 8. S/P PICC line placement 9. 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 Acute UTI Serratia marcescens, E. coli 11. Bilateral pleural effusions, improved with diuretics. Possible aspiration pneumonia, possible fluid overload. 12. Sternal wound debridement, culture growing Serratia marcescens, status post wound VAC. Status post sternal flap grafting. 13. Pressure ulceration of back and buttocks, stage III 14. Diarrhea, ruled out C. difficile colitis. 15. Status post bronchoscopy with left lower lobe mucous plug discovered 16. ileus. Improved. Started on NG tube feeding. Changed to PEG tube feeding Plan: Patient will be continued on Cardizem, amiodarone and beta krunal for better heart rate control. Continue with antibiotics. Continue with aspirin statins. Continue the wound care and follow-up culture reports. Patient is still on mechanical ventilation. Follow up closely. Further recommendations based on the clinical course. Prognosis is guarded with multiple medical problems and comorbid conditions. Pulmonary and cardiology and ID is following. Time with Patient: Greater than 30
[2018-01-12] MEDS ORDERED: VANCOMYCIN TROUGH DUE 1 EACH MISC MISCELLANE ONE (08:00)
--- NOTE | 2018-01-13 14:21 | CDI ---
Last Revision, September 2017 Documentation Clarification Form Date: 01/13/18 From: Alejandra Cyrus Melissa Ching, Etl Analyst between 8:30 am & 5 pm [place] Admit Date: 11/25/2017 5:36:00 AM Patient Name: Maritza Sadler Visit Number: [id number] Discharge Date: 01/11/18 ATTENTION: The Clinical Documentation Specialists (CDI) and [facility] Coding Staff appreciate your assistance in clarifying documentation. Please respond to the clarification below the line at the bottom and electronically sign. The CDI & [facility] Coding staff will review the response and follow-up if needed. Please note: Queries are made part of the Legal Health Record. If you have any questions, please contact the author of this message via ITS. Dr. Tremayne Carreno Patient s/p mitral valve replacement/CBG/Maze/atrial appendage ligation etc. Per your 01/01 PN states "cnogestive heart failure" and continue Lasix IV. CXR as early as 12/14 evidence of CHF. No BNP. 12/08 Echo: left ventricular systolic function is low-normal with an EF between 50 -55% In your professional opinion, can you please clarify the acuity and type of CHF if known? Type Systolic Heart Failure: Diastolic Heart Failure: Systolic & Diastolic Heart Failure: Acuity Acute Chronic Acute on Chronic Heart Failure Unable to Determine Other, please specify Please continue to document in your progress notes and discharge summary in order to capture severity of illness and risk of mortality. Include clinical findings that support your diagnosis. MTDD
--- NOTE | 2018-01-17 12:16 | CDI ---
Last Revision, September 2017 Documentation Clarification Form Date: 01/16/18 From: Alejandra Cyrus Melissa Ching, Metrology Technician between 8:30 am & 5 pm [place] Admit Date: 11/25/2017 5:36:00 AM Patient Name: Maritza Sadler Visit Number: [id number] Discharge Date: 01/11/18 ATTENTION: The Clinical Documentation Specialists (CDI) and [facility] Coding Staff appreciate your assistance in clarifying documentation. Please respond to the clarification below the line at the bottom and electronically sign. The CDI & [facility] Coding staff will review the response and follow-up if needed. Please note: Queries are made part of the Legal Health Record. If you have any questions, please contact the author of this message via ITS. Dr. Dion Back Patient s/p mitral valve replacement/CBG/Maze/atrial appendage ligation etc. Per your 01/01 PN states "cnogestive heart failure" and continue Lasix IV. CXR as early as 12/14 evidence of CHF. No BNP. 12/08 Echo: left ventricular systolic function is low-normal with an EF between 50 -55% In your professional opinion, can you please clarify the acuity and type of CHF if known? Type Systolic Heart Failure: Diastolic Heart Failure: Systolic & Diastolic Heart Failure: Acuity Acute Chronic Acute on Chronic Heart Failure Unable to Determine Other, please specify Please continue to document in your progress notes and discharge summary in order to capture severity of illness and risk of mortality. Include clinical findings that support your diagnosis. My note from 01/01 does not state congestive heart failure, nor do any of my notes. MTDD
== END 2018-01-11 14:38 | DRG 3 ==
LOC: 2ORMAIN 05:36 → 6ICU 14:37
PROVIDERS: ADMIT Surgery; ATTEND Surgery
PROC: 02L70CK Occlusion of Left Atrial Appendage with Extraluminal Device, Open Approach (ICD-10-PCS; 2017-11-25)
PROC: 5A1221Z Performance of Cardiac Output, Continuous (ICD-10-PCS; 2017-11-25)
PROC: B24BZZ4 Ultrasonography of Heart with Aorta, Transesophageal (ICD-10-PCS; 2017-11-25)
PROC: 0D9670Z Drainage of Stomach with Drainage Device, Via Natural or Artificial Opening (ICD-10-PCS; 2017-11-25)
PROC: 3E0G76Z Introduction of Nutritional Substance into Upper GI, Via Natural or Artificial Opening (ICD-10-PCS; 2017-11-25)
PROC: 30243K1 Transfusion of Nonautologous Frozen Plasma into Central Vein, Percutaneous Approach (ICD-10-PCS; 2017-11-25)
PROC: 30243N1 Transfusion of Nonautologous Red Blood Cells into Central Vein, Percutaneous Approach (ICD-10-PCS; 2017-11-25)
PROC: 30243R1 Transfusion of Nonautologous Platelets into Central Vein, Percutaneous Approach (ICD-10-PCS; 2017-11-25)
PROC: 30243M1 Transfusion of Nonautologous Plasma Cryoprecipitate into Central Vein, Percutaneous Approach (ICD-10-PCS; 2017-11-25)
PROC: 02QL0ZZ Repair Left Ventricle, Open Approach (ICD-10-PCS; 2017-11-25)
PROC: 5A12012 Performance of Cardiac Output, Single, Manual (ICD-10-PCS; 2017-11-25)
PROC: 02RG08Z Replacement of Mitral Valve with Zooplastic Tissue, Open Approach (ICD-10-PCS; principal; 2017-11-25 08:00)
PROC: 021009W Bypass Coronary Artery, One Artery from Aorta with Autologous Venous Tissue, Open Approach (ICD-10-PCS; 2017-11-25 08:00)
PROC: 5A1955Z Respiratory Ventilation, Greater than 96 Consecutive Hours (ICD-10-PCS; 2017-11-25 08:00)
PROC: 02580ZZ Destruction of Conduction Mechanism, Open Approach (ICD-10-PCS; 2017-11-25 08:00)
PROC: 06BQ4ZZ Excision of Left Saphenous Vein, Percutaneous Endoscopic Approach (ICD-10-PCS; 2017-11-25 08:00)
PROC: 5A09557 Assistance with Respiratory Ventilation, Greater than 96 Consecutive Hours, Continuous Positive Airway Pressure (ICD-10-PCS; 2017-11-30)
PROC: 02HV33Z Insertion of Infusion Device into Superior Vena Cava, Percutaneous Approach (ICD-10-PCS; 2017-12-03)
PROC: 5A2204Z Restoration of Cardiac Rhythm, Single (ICD-10-PCS; 2017-12-07)
PROC: 0PB00ZZ Excision of Sternum, Open Approach (ICD-10-PCS; 2017-12-10)
PROC: 0W9B30Z Drainage of Left Pleural Cavity with Drainage Device, Percutaneous Approach (ICD-10-PCS; 2017-12-10)
PROC: 5A2204Z Restoration of Cardiac Rhythm, Single (ICD-10-PCS; 2017-12-11)
PROC: 0BH17EZ Insertion of Endotracheal Airway into Trachea, Via Natural or Artificial Opening (ICD-10-PCS; 2017-12-14)
PROC: 5A1955Z Respiratory Ventilation, Greater than 96 Consecutive Hours (ICD-10-PCS; 2017-12-14)
PROC: 0B9J8ZZ Drainage of Left Lower Lung Lobe, Via Natural or Artificial Opening Endoscopic (ICD-10-PCS; 2017-12-15)
PROC: 03HY32Z Insertion of Monitoring Device into Upper Artery, Percutaneous Approach (ICD-10-PCS; 2017-12-15)
PROC: 4A133B1 Monitoring of Arterial Pressure, Peripheral, Percutaneous Approach (ICD-10-PCS; 2017-12-15)
PROC: 4A133J1 Monitoring of Arterial Pulse, Peripheral, Percutaneous Approach (ICD-10-PCS; 2017-12-15)
PROC: 0BCB8ZZ Extirpation of Matter from Left Lower Lobe Bronchus, Via Natural or Artificial Opening Endoscopic (ICD-10-PCS; 2017-12-15)
PROC: 0B9B8ZZ Drainage of Left Lower Lobe Bronchus, Via Natural or Artificial Opening Endoscopic (ICD-10-PCS; 2017-12-15)
PROC: 2W04X6Z Change Pressure Dressing on Chest Wall (ICD-10-PCS; 2017-12-16)
PROC: 2W04X6Z Change Pressure Dressing on Chest Wall (ICD-10-PCS; 2017-12-19)
PROC: 0KXK0Z6 Transfer Right Abdomen Muscle, Transverse Rectus Abdominis Myocutaneous Flap, Open Approach (ICD-10-PCS; 2017-12-21)
PROC: 0WUF0JZ Supplement Abdominal Wall with Synthetic Substitute, Open Approach (ICD-10-PCS; 2017-12-21)
PROC: 0HR7XK3 Replacement of Abdomen Skin with Nonautologous Tissue Substitute, Full Thickness, External Approach (ICD-10-PCS; 2017-12-21)
PROC: 0HR5XK3 Replacement of Chest Skin with Nonautologous Tissue Substitute, Full Thickness, External Approach (ICD-10-PCS; 2017-12-21)
PROC: 5A09457 Assistance with Respiratory Ventilation, 24-96 Consecutive Hours, Continuous Positive Airway Pressure (ICD-10-PCS; 2017-12-22)
PROC: 5A1955Z Respiratory Ventilation, Greater than 96 Consecutive Hours (ICD-10-PCS; 2017-12-23)
PROC: 0BH17EZ Insertion of Endotracheal Airway into Trachea, Via Natural or Artificial Opening (ICD-10-PCS; 2017-12-23)
PROC: 0B110F4 Bypass Trachea to Cutaneous with Tracheostomy Device, Open Approach (ICD-10-PCS; 2017-12-24)
PROC: 03HY32Z Insertion of Monitoring Device into Upper Artery, Percutaneous Approach (ICD-10-PCS; 2017-12-24)
PROC: 4A133B1 Monitoring of Arterial Pressure, Peripheral, Percutaneous Approach (ICD-10-PCS; 2017-12-24)
PROC: 4A133J1 Monitoring of Arterial Pulse, Peripheral, Percutaneous Approach (ICD-10-PCS; 2017-12-24)
PROC: 0DH68UZ Insertion of Feeding Device into Stomach, Via Natural or Artificial Opening Endoscopic (ICD-10-PCS; 2017-12-25)
PROC: 3E0G76Z Introduction of Nutritional Substance into Upper GI, Via Natural or Artificial Opening (ICD-10-PCS; 2017-12-25)
PROC: 0DJ08ZZ Inspection of Upper Intestinal Tract, Via Natural or Artificial Opening Endoscopic (ICD-10-PCS; 2017-12-25)
PROC: 3E0436Z Introduction of Nutritional Substance into Central Vein, Percutaneous Approach (ICD-10-PCS; 2017-12-29)
PROC: 0DH63UZ Insertion of Feeding Device into Stomach, Percutaneous Approach (ICD-10-PCS; 2018-01-05)
DX: I05.2 Rheumatic mitral stenosis with insufficiency (principal); J69.0 Pneumonitis due to inhalation of food and vomit; E87.4 Mixed disorder of acid-base balance; J95.821 Acute postprocedural respiratory failure; R13.10 Dysphagia, unspecified; T17.590A Other foreign object in bronchus causing asphyxiation, initial encounter; T82.858A Stenosis of other vascular prosthetic devices, implants and grafts, initial encounter; D62 Acute posthemorrhagic anemia; K56.7 Ileus, unspecified; N39.0 Urinary tract infection, site not specified; T81.32XA Disruption of internal operation (surgical) wound, not elsewhere classified, initial encounter; I97.51 Accidental puncture and laceration of a circulatory system organ or structure during a circulatory system procedure; Z68.41 Body mass index [BMI] 40.0-44.9, adult; J98.11 Atelectasis; I48.4 Atypical atrial flutter; Z99.11 Dependence on respirator [ventilator] status; T81.4XXA Infection following a procedure, initial encounter; I47.1 Supraventricular tachycardia; I31.3 Pericardial effusion (noninflammatory); K91.89 Other postprocedural complications and disorders of digestive system; L89.43 Pressure ulcer of contiguous site of back, buttock and hip, stage 3; I25.10 Atherosclerotic heart disease of native coronary artery without angina pectoris; L89.810 Pressure ulcer of head, unstageable; L89.892 Pressure ulcer of other site, stage 2; I48.0 Paroxysmal atrial fibrillation; E66.01 Morbid (severe) obesity due to excess calories; E88.09 Other disorders of plasma-protein metabolism, not elsewhere classified; J44.9 Chronic obstructive pulmonary disease, unspecified; S31.811A Laceration without foreign body of right buttock, initial encounter; S31.821A Laceration without foreign body of left buttock, initial encounter; S51.811A Laceration without foreign body of right forearm, initial encounter; B96.20 Unspecified Escherichia coli [E. coli] as the cause of diseases classified elsewhere; E87.6 Hypokalemia; T46.2X5A Adverse effect of other antidysrhythmic drugs, initial encounter; B96.89 Other specified bacterial agents as the cause of diseases classified elsewhere; I73.9 Peripheral vascular disease, unspecified; K82.9 Disease of gallbladder, unspecified; I70.8 Atherosclerosis of other arteries; K59.00 Constipation, unspecified; E78.5 Hyperlipidemia, unspecified; E78.00 Pure hypercholesterolemia, unspecified; K21.9 Gastro-esophageal reflux disease without esophagitis; F41.9 Anxiety disorder, unspecified; F32.9 Major depressive disorder, single episode, unspecified; M19.91 Primary osteoarthritis, unspecified site; M81.0 Age-related osteoporosis without current pathological fracture; Z16.24 Resistance to multiple antibiotics; Z79.01 Long term (current) use of anticoagulants; Z79.82 Long term (current) use of aspirin; Z79.899 Other long term (current) drug therapy; Z22.322 Carrier or suspected carrier of Methicillin resistant Staphylococcus aureus; Z87.891 Personal history of nicotine dependence; Z87.11 Personal history of peptic ulcer disease; Z95.5 Presence of coronary angioplasty implant and graft; Z88.5 Allergy status to narcotic agent; Z83.79 Family history of other diseases of the digestive system; Z82.49 Family history of ischemic heart disease and other diseases of the circulatory system; Z80.9 Family history of malignant neoplasm, unspecified; Y83.4 Other reconstructive surgery as the cause of abnormal reaction of the patient, or of later complication, without mention of misadventure at the time of the procedure; Y83.2 Surgical operation with anastomosis, bypass or graft as the cause of abnormal reaction of the patient, or of later complication, without mention of misadventure at the time of the procedure; Y92.230 Patient room in hospital as the place of occurrence of the external cause; Y92.234 Operating room of hospital as the place of occurrence of the external cause; I11.0 Hypertensive heart disease with heart failure; I50.9 Heart failure, unspecified
CPT/HCPCS: 31624; 31645; 36415; 36569; 36600; 43235; 43246; 71045; 71250; 74018; 74019; 74230; 76604; 76937; 80048; 80053; 80061; 80074; 80202; 81001; 82330; 82805; 83036; 83735; 83880; 84100; 84132; 84134; 84443; 84484; 85025; 85027; 85347; 85384; 85520; 85610; 85730; 86022; 86850; 86891; 86900; 86901; 86920; 87045; 87046; 87070; 87075; 87077; 87086; 87102; 87116; 87186; 87205; 87206; 87252; 87324; 87328; 87329; 87496; 87498; 87502; 87529; 87634; 87798; 88305; 89050; 89055; 92960; 93005; 93308; 93970; 94002; 94003; 94640; 94660; 94760; 94770